=== PATIENT | female | born 1970 | race Caucasian/White ===

== ENCOUNTER 2024-03-01 18:20 | Outpatient (REF) | payer MEDICARE, SELFPAY ==
[2024-03-01 19:36] LABS: ALT 63 U/L (14-59); AST 32 U/L (15-37); Albumin 3.3 g/dL (3.4-5.0); Alkaline Phosphatase 119 U/L (46-116); Anion Gap 14.1 mmol/L (3-11); BUN 25 mg/dL (7-18); Bilirubin, Total 0.9 mg/dL (0.2-1.0); CO2 22.9 mmol/L (21.0-32.0); CREATININE 0.7 mg/dL (0.55-1.02); Chloride 104 mmol/L (98-107); Estimated GFR 101.44 (mL/min/1.73m2); Glucose 91 mg/dL (74-106); Potassium 4.3 mmol/L (3.5-5.1); Sodium 141 mmol/L (136-145); Total Protein 8.2 g/dL (6.4-8.2); Vitamin B12 882 pg/mL (193-986)
== END 2024-03-01 18:21 | disposition home or self-care (01) ==
LOC: LBN 18:20
PROVIDERS: Visit Provider Family Medicine
DX: R29.6 Repeated falls (principal); M62.81 Muscle weakness (generalized); I69.10 Unspecified sequelae of nontraumatic intracerebral hemorrhage
CPT/HCPCS: 80053; 82607

== ENCOUNTER 2024-03-06 18:54 | Outpatient (REF) | payer MEDICARE, SELFPAY ==
[2024-03-06 18:00] LABS: Abs Immature Grans 0.01 10^3/uL (0.0-0.06); Absolute Basophil Count 0.02 10^3/uL (0.0-0.2); Absolute Eosinophil Count 0.01 10^3/uL (0.0-0.7); Absolute Lymphocyte Count 2.01 10^3/uL (1.2-3.4); Absolute Monocyte Count 0.43 10^3/uL (0.1-0.8); Absolute Neutrophil Count 2.03 10^3/uL (1.2-6.7); Basophils % 0.4; Eosinophils % 0.2; HCT 37.8 % (36.0-46.0); HGB 12.3 g/dL (11.2-15.7); Immature Grans % 0.2; Lymphocytes % 44.6; MCH 31.9 pg (27.0-33.0); MCHC 32.5 % (32.0-36.0); MCV 98 fL (80-95); MPV 12.7 fL (8.0-11.0); Monocytes % 9.5; Neutrophils % 45.1; Platelet Count 265 10^3/uL (130-400); RBC 3.86 10^6/uL (3.93-5.22); RDW 14.2 % (11.7-14.6); RDW-SD 50.9 fL; WBC 4.51 10^3/uL (4.4-10.8)
[2024-03-06 18:09] LABS: ALT 52 U/L (14-59); AST 27 U/L (15-37); Albumin 3.2 g/dL (3.4-5.0); Alkaline Phosphatase 115 U/L (46-116); Anion Gap 9.6 mmol/L (3-11); BUN 17 mg/dL (7-18); Bilirubin, Total 0.8 mg/dL (0.2-1.0); CO2 24.4 mmol/L (21.0-32.0); CREATININE 0.9 mg/dL (0.55-1.02); Calcium 8.7 mg/dL (8.5-10.1); Chloride 104 mmol/L (98-107); Estimated GFR 75.03 (mL/min/1.73m2); Glucose 86 mg/dL (74-106); Potassium 4.2 mmol/L (3.5-5.1); Sodium 138 mmol/L (136-145); Total Protein 7.5 g/dL (6.4-8.2)
== END 2024-03-06 18:55 | disposition home or self-care (01) ==
LOC: LBN 18:54
PROVIDERS: Visit Provider Nurse Practitioner Family
DX: R68.89 Other general symptoms and signs (principal); M62.81 Muscle weakness (generalized)
CPT/HCPCS: 80053; 85025

== ENCOUNTER 2024-03-22 07:35 | Outpatient (REF) | payer MEDICARE, SELFPAY ==
[2024-03-22 09:35] LABS: Bilirubin Negative (Negative); Blood Large (Negative); Clarity Cloudy (Clear); Glucose Negative (Negative); Ketones Negative (Negative); Leukocyte Esterase Moderate (Negative); Nitrite Positive (Negative)
[2024-03-22 09:47] LABS: C & S Indicated? C&S Done As Ordered; WBC >50 HPF (0-5)
== END 2024-03-22 07:36 | disposition home or self-care (01) ==
LOC: LBN 07:35
PROVIDERS: Visit Provider Family Medicine
DX: N39.0 Urinary tract infection, site not specified (principal)
CPT/HCPCS: 87077; 81003; 81015; 87086; 87186

== ENCOUNTER 2024-05-06 18:08 | Outpatient (REF) | payer MEDICARE, SELFPAY ==
[2024-05-06 18:36] LABS: Abs Immature Grans 0.02 10^3/uL (0.0-0.06); Absolute Basophil Count 0.02 10^3/uL (0.0-0.2); Absolute Eosinophil Count 0.01 10^3/uL (0.0-0.7); Absolute Lymphocyte Count 1.87 10^3/uL (1.2-3.4); Absolute Monocyte Count 0.37 10^3/uL (0.1-0.8); Absolute Neutrophil Count 3.23 10^3/uL (1.2-6.7); Basophils % 0.4 %; Eosinophils % 0.2 %; HCT 38.5 % (36.0-46.0); Immature Grans % 0.4 %; Lymphocytes % 33.9 %; MCH 26.4 pg (27.0-33.0); MCHC 31.2 % (32.0-36.0); MCV 85 fL (80-95); MPV 12.5 fL (8.0-11.0); Monocytes % 6.7 %; Neutrophils % 58.4 %; Platelet Count 176 10^3/uL (130-400); RBC 4.55 10^6/uL (3.93-5.22); RDW 13.2 % (11.7-14.6); WBC 5.52 10^3/uL (4.4-10.8)
[2024-05-06 19:17] LABS: ALT 21 U/L (14-59); AST 12 U/L (15-37); Albumin 2.7 g/dL (3.4-5.0); Alkaline Phosphatase 114 U/L (46-116); Anion Gap 5.7 mmol/L (3-11); BUN 7 mg/dL (7-18); Bilirubin, Total 0.3 mg/dL (0.2-1.0); CO2 29.3 mmol/L (21.0-32.0); CREATININE 0.6 mg/dL (0.55-1.02); Calcium 8.8 mg/dL (8.5-10.1); Chloride 106 mmol/L (98-107); Estimated GFR 105.28 (mL/min/1.73m2); Folate 17.4 ng/mL (8.6-20.0); Glucose 96 mg/dL (74-106); Magnesium 1.6 mg/dL (1.8-2.4); Potassium 4.2 mmol/L (3.5-5.1); Sodium 141 mmol/L (136-145); Total Protein 5.8 g/dL (6.4-8.2); Vitamin B12 365 pg/mL (193-986)
== END 2024-05-06 18:09 | disposition home or self-care (01) ==
LOC: LBN 18:08
PROVIDERS: Visit Provider Nurse Practitioner Family
DX: R68.89 Other general symptoms and signs (principal)
CPT/HCPCS: 80053; 82607; 82746; 83735; 85025

== ENCOUNTER 2024-05-08 01:09 | Outpatient (REF) | payer MEDICARE, SELFPAY ==
[2024-05-08 01:35] LABS: Bilirubin Negative (Negative); Blood Negative (Negative); Clarity Sl Cloudy (Clear); Glucose Negative (Negative); Ketones Negative (Negative); Leukocyte Esterase Large (Negative); Nitrite Positive (Negative); Specific Gravity 1.015 (1.005-1.025); Urobilinogen 0.2 mg/dL (Up to 0.2); pH 6.5 (5-8)
[2024-05-08 01:39] LABS: RBC Negative HPF (0-2)
[2024-05-08 01:40] LABS: Bacteria Moderate HPF (Negative); C & S Indicated? Yes; Casts Negative LPF (Negative); Crystals Few Amorphous HPF (Negative); Epithelial Cells Few HPF (Negative); Mucus Negative (Negative)
== END 2024-05-08 01:10 | disposition home or self-care (01) ==
LOC: LBN 01:09
PROVIDERS: Visit Provider Nurse Practitioner Family
DX: N39.0 Urinary tract infection, site not specified (principal); B96.29 Other Escherichia coli [E. coli] as the cause of diseases classified elsewhere; R82.89 Other abnormal findings on cytological and histological examination of urine
CPT/HCPCS: 87077; 81003; 81015; 87086; 87186

== ENCOUNTER 2024-06-07 14:17 | Outpatient (REF) | payer MEDICARE, SELFPAY ==
[2024-06-07 15:12] LABS: Bilirubin Negative (Negative); Blood Moderate (Negative); Clarity Sl Cloudy (Clear); Glucose Negative (Negative); Ketones Negative (Negative); Leukocyte Esterase Trace (Negative); Nitrite Negative (Negative); Urobilinogen 0.2 mg/dL (Up to 0.2); pH 8.5 (5-8)
[2024-06-07 15:20] LABS: Bacteria Many HPF (Negative); C & S Indicated? C&S Done As Ordered; Casts Negative LPF (Negative); Crystals Negative HPF (Negative); Epithelial Cells Rare HPF (Negative); Mucus Negative (Negative)
== END 2024-06-07 14:18 | disposition home or self-care (01) ==
LOC: LBN 14:17
PROVIDERS: PCP Family Medicine; Visit Provider Family Medicine
DX: R82.998 Other abnormal findings in urine (principal)
CPT/HCPCS: 87077; 81003; 81015; 87086; 87186

== ENCOUNTER 2024-09-02 11:49 | Outpatient (REF) | payer MEDICARE, SELFPAY ==
[2024-09-02 11:13] LABS: Abs Immature Grans 0.01 10^3/uL (0.0-0.06); Absolute Basophil Count 0.03 10^3/uL (0.0-0.2); Absolute Lymphocyte Count 2.61 10^3/uL (1.2-3.4); Absolute Neutrophil Count 2.84 10^3/uL (1.2-6.7); Basophils % 0.5 %; Eosinophils % 1.7 %; HCT 41.3 % (36.0-46.0); HGB 13.3 g/dL (11.2-15.7); Immature Grans % 0.2 %; Lymphocytes % 44.3 %; MCH 27.7 pg (27.0-33.0); MCHC 32.2 % (32.0-36.0); MCV 86 fL (80-95); MPV 11.7 fL (8.0-11.0); Monocytes % 5.1 %; Neutrophils % 48.2 %; Platelet Count 183 10^3/uL (130-400); RBC 4.81 10^6/uL (3.93-5.22); RDW 14.1 % (11.7-14.6); RDW-SD 44.7 fL; WBC 5.89 10^3/uL (4.4-10.8)
[2024-09-02 11:52] LABS: Anion Gap 7.9 mmol/L (3-11); BUN 7 mg/dL (7-18); CO2 27.1 mmol/L (21.0-32.0); CREATININE 0.8 mg/dL (0.55-1.02); Calcium 9.6 mg/dL (8.5-10.1); Chloride 106 mmol/L (98-107); Estimated GFR 86.42 (mL/min/1.73m2); Ferritin 87 ng/mL (8-252); Glucose 138 mg/dL (74-106); Potassium 3.7 mmol/L (3.5-5.1); Sodium 141 mmol/L (136-145); Vitamin B12 543 pg/mL (193-986)
[2024-09-02 11:59] LABS: Folate > 20.0 ng/mL (8.6-20.0)
== END 2024-09-02 11:50 | disposition home or self-care (01) ==
LOC: LBN 11:49
PROVIDERS: PCP Family Medicine; Visit Provider Family Medicine
DX: M62.81 Muscle weakness (generalized) (principal)
CPT/HCPCS: 80048; 82607; 82728; 82746; 85025

== ENCOUNTER 2024-12-03 15:38 | Outpatient (REF) | payer MEDICARE, SELFPAY ==
--- OUTSIDE RECORDS SUMMARY | 2024-12-03 15:50 | XMS_ITS | Encounter Summary ---
Author Organization [facility] Address [address] [place] [address] Care Team Providers Care Counter Maker Name Role Phone Romario Hairston MD Primary Care Provider +1- [phone] Reason for Visit * Reason Onset Date Comments Other 04/30/2024 Encounter Details Date Type Department Care Team (Late st Contact Info) Description 04/30/2024 Telephone [facility] Neurology Clinic [address] [place] [address] Brayan Polk MD 130 [facility] [address] [place] [address] Other Social History Tobacco Use Types Packs/Day Years Used Date Smoking Tobacco: Every Day Cigarettes 0.3 15 Smokeless Tobacco: Never Alcohol Use Standard Drinks/Week Comments Yes 7 (1 standard drink = 0.6 oz pur e alcohol) PHQ-2 Answer Date Recorded PHQ-2 SUBTOTAL 0 07/16/2020 Interpersonal Safety Answer Date Record ed Physically Hurt Never 06/26/2020 Verbally Threaten Not on file 06/26/2020 Comments No Sex and Gender Information Value Date Recorded Sex Assigned at Not on file Legal Sex Female 17:42 EST Gender Identity Female 03/18/2020 17:54 EDT Sexual Orientation Not on file documented as of this encounter Functional Status * Are you deaf or do you have serious difficulty hearing? Answer Date of Assessment Author No 02/04/2024 17:13 EDT Sallie Sewell LPN * Are you blind or do you have serious difficulty seeing, even when wearing glasses? Answer Date of Assessment Author No 02/04/2024 17:13 EDT Sallie Sewell LPN * Do you have serious difficulty walking or climbing stairs? (5 years old or older) Answer Date of Assessment Author Yes 02/04/2024 17:13 EDT Sallie Sewell LPN * Do you have difficulty dressing or bathing? (5 years old or older) Answer Date of Assessment Author Yes 02/04/2024 17:13 EDT Sallie Sewell LPN * Because of a physical, mental, or emotional condition, do you have difficulty doing errands alone such as visiting a doctor's office or shopping? (15 years old or older) Answer Date of Assessment Author Yes 02/04/2024 17:13 EDT Sallie Sewell LPN documented as of this encounter Mental Status * Because of a physical, mental, or emotional condition, do you have serious difficulty concentrating, remembering, or making decisions? (5 years old or older) Answer Entry Date Author Yes 02/04/2024 17:13 EDT Sallie Sewell LPN documented in this encounter Miscellaneous Notes * Telephone Encounter - Brayan Polk MD - 05/01/2024 1038 EDT As long as she stays on b12 and keeps getting stronger, there's no need to recheck a b12 level any time soon. * Telephone Encounter - Vashti Grover RN - 05/01/2024 1022 EDT Lucille verbalized understanding of Dr. Polk's message. She was wondering when the next blood draw would be. And she pointed out that the next appointment is not until August. She is still concerned about Ynes's apartment. I told her that the residential can give her better advice on this because they work with her every day. She said that the PT says she is getting stronger every day and Lucille knows that she will just have to wait and see what happens right now. * Telephone Encounter - Vashti Grover RN - 05/01/2024 1007 EDT Left message for Lucille to return my call for Dr. Polk's message. Left call back information. * Telephone Encounter - Brayan Polk MD - 04/30/2024 1501 EDT I am not exactly sure what her specific question is, but continue taking B12 and seizure medicine, and if her leg symptoms are not worsening I would not be likely to retreat with IVIG since the B12 deficiency may be the cause of her symptoms. She has an appointment in a couple of weeks. * Telephone Encounter - Angie Haley - 04/30/2024 1106 EDT Lucille called to see what Dr Polk plan is for Ynes. documented in this encounter Plan of Treatment Upcoming Encounters Date Type Department Care Team (Late st Contact Info) Description 03/04/2025 14:00 EDT Telemedicine [facility] Neurology Clinic [address] [place] [id number] Brayan Polk MD [address] [place] [address] [place] [phone] 07/14/2025 14:30 EDT Office Visit [facility] Cancer [facility] Hematology & Oncology - [address] [address] Evin Maria MD [address] [place] [address], [address] [place] [address] documented as of this encounter Visit Diagnoses Not on filedocumented in this encounter Care Teams Counter Maker Relationship Specialty Start Date End Date Romario Hairston MD [facility] [place] [id number] PCP - General 07/06/20 documented as of this encounter
--- OUTSIDE RECORDS SUMMARY | 2024-12-03 15:50 | XMS_ITS | Encounter Summary ---
Author Organization [facility] Address [address] [place] [address] Care Team Providers Care Rental Boats Caretaker Name Role Phone Romario Hairston MD Primary Care Provider +1- [phone] Reason for Visit * Reason Onset Date Comments Medication Questions 10/15/2024 Encounter Details Date Type Department Care Team (Late st Contact Info) Description 10/15/[address] [facility] Neurology Clinic [address] [place] [address] Brayan Polk MD 130 [facility] [address] [place] [address] Medication Questions Social History Tobacco Use Types Packs/Day Years [...] encounter Miscellaneous Notes * Telephone Encounter - Vashti Grover RN - 10/15/2024 1342 EST Lucille verbalized understanding of the need to call Ynes's PCP or sleep doctor about the omeprazole as our docs do not manage this medication. * Telephone Encounter - Emma Renae - 10/15/2024 1203 EST Sister called to say that patient has trouble sleeping. She was wondering if the dose for Omeprazole can be increased. Please call her at [phone]. Thanks. documented in this encounter Plan of Treatment Upcoming Encounters Date Type Department Care Team (Late st Contact Info) Description 03/04/2025 14:[address] [facility] Neurology Clinic [address] [place] [id number] Brayan Polk MD [address] [place] [address] 07/14/2025 14:30 EDT Office Visit [facility] Cancer Center Hematology & Oncology - [address] [phone] Evin Maria MD 111 [facility], [facility], [address] [place] [address] documented as of this encounter Visit Diagnoses Not on filedocumented in this encounter Care Teams Rental Boats Caretaker Relationship Specialty Start Date End Date Romario Hairston MD [address], [address] [phone] PCP - General 07/06/20 documented as of this encounter
--- OUTSIDE RECORDS SUMMARY | 2024-12-03 15:50 | XMS_ITS | Encounter Summary ---
Author Organization [facility] Address [address] [place] [address] Care Team Providers Care Bushel Girl Name Role Phone Romario Hairston MD Primary Care Provider +1- [phone] Reason for Visit * Reason Onset Date Comments Other 03/05/2024 Encounter Details Date Type Department Care Team (Late st Contact Info) Description 03/05/2024 Telephone [facility] [address] [place] [address] Brayan Polk MD 130 [facility] [address] [place] [address] Other Social History Tobacco Use [...] encounter Miscellaneous Notes * Telephone Encounter - Angie Haley - 03/05/2024 0956 EDT Hola called ,she said she had some questions for you. Please call her back. [phone] documented in this encounter Plan of Treatment Upcoming Encounters Date Type Department Care Team (Late st Contact Info) Description 03/04/2025 14:00 EDT Telemedicine [facility] [address] [place], [place] [phone] Brayan Polk MD 130 [facility] [address] [place] [address] 07/14/2025 14:30 EDT Office Visit [facility] Cancer Center Hematology & Oncology - [address] [phone] Evin Maria MD [address] [place] [address] [address] [place] [phone] documented as of this encounter Visit Diagnoses Not on filedocumented in this encounter Care Teams Bushel Girl Relationship Specialty Start Date End Date Romario Hairston MD [address], [address] [id number] PCP - General 07/06/20 documented as of this encounter
--- OUTSIDE RECORDS SUMMARY | 2024-12-03 15:50 | XMS_ITS | Referral Summary ---
Author Organization [facility] Address [address] [place] [address] Care Team Providers Care Orthopaedic General Name Role Phone Romario Hairston MD Primary Care Provider +1- [phone] Encounters Date Type Department Care Team Description 10/15/2024 Telephone [facility] Neurology Clinic [address] [place], [place] [phone] Brayan Polk MD Medication Questions 09/18/2024 Telephone [facility] Neurology Clinic [address] [place] [address] Angi Robertson, color making supervisor Management 09/17/2024 13:30 EDT Telemedicine [facility] Neurology Clinic [address] [place] [address] Brayan Polk MD 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 0 Active omeprazole (PRILOSEC) 20 mg capsule TAKE 1 CAPSULE BY MOUTH EVERY DAY 30 MINUTES BEFORE BREAKFAST 1 Active metoclopramide HCl (REGLAN) 5 mg tablet Take 1 Tablet by mouth 3 times daily before meals. 90 Tablet 2 Active apixaban (ELIQUIS) 2.5 mg tablet Take 1 Tablet by mouth 2 times daily. 60 Tablet 6 3 Active pregabalin (LYRICA) 100 mg capsule Take 1 Capsule by mouth 2 times daily. Daily Max: 200 mg 180 Capsule 1 4 Active buPROPion (WELLBUTRIN SR) 100 mg SR tablet Take 1 Tablet by mouth 2 times daily. 4 Active melatonin 5 mg tablet Take 1 Tablet by mouth at bedtime. 4 Active acetaminophen (TYLENOL) 325 mg tablet Take 1 Tablet by mouth every 4 hours as needed for Pain. 4 Active xroocuhj-eaq-ei on fum-folic ac 7.5 mg iron-400 mcg tablet Take 1 Tablet by mouth daily. 4 Active cholecalciferol , Vitamin D3, 25 mcg (1,000 unit) tablet Take 1 Tablet by mouth daily. 4 Active polyethylene glycol 3350 (MIRALAX) 17 gram packet Take 17 g by mouth daily. 4 Active senna (SENOKOT) 8.6 mg tablet Take 1 Tablet by mouth at bedtime. 4 Active cyanocobalamin (VITAMIN B-12) 1,000 mcg tablet Take 1 Tablet by mouth daily. Active docusate sodium (COLACE) 100 mg capsule Take 1 Capsule by mouth daily. Active magnesium oxide (MAG-OX) 400 mg (241.3 mg magnesium) tablet Take 1 Tablet by mouth daily. Active rOPINIRole (REQUIP) 1 mg tablet Take 1 Tablet by mouth daily. At bedtime, ok to use 2 tablets of 0.5 mg Active tiZANidine (ZANAFLEX) 2 mg capsule Take 1 Capsule by mouth 3 times daily as needed for Other. For 14 days starting 09/04/24 Active pyridoxine, vitamin B6, (VITAMIN B6) 50 mg tablet Take 1 Tablet by mouth daily. Active Active Problems Patient Care Coordination No te Formatting of this note migh t be different from the original. PT caregiver/contact Ever called today stating that he'd received a call from a Pat. Benefit Advisor - reviewed upcoming appointments, no notes re: reason for call. Ever stated he may be reached via phone & ok to msg - pt non-verbal @ this time. Hope Crowe 08/02/2020 13:23 PT Has an ACO LALO Plan Trace number # [phone] Napoleon can now be reached by phoning her sister and guardian, Lucille Chapa at [phone]. 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 Right upper quadrant abdominal pain 02/08/2024 Hyponatremia 02/08/2024 Ileus ([facility]) 02/07/2024 Epigastric pain 02/07/2024 Hypomagnesemia 02/05/2024 Acute left ankle pain [M25.572] 02/04/2024 Closed avulsion fracture of medial malleolus of left tibia 02/04/2024 Weakness 02/04/2024 Sprain of left ankle, unspec ified ligament, initial encounter 02/04/2024 Failure to thrive in adult 02/04/2024 Closed avulsion fracture of medial malleolus of left tibia, initial encounter 02/04/2024 Neurogenic bladder as late e ffect of cerebrovascular accident (CVA) 06/11/2022 Severe protein-calorie malnutrition ([facility]) Insomnia due to other mental disorder (CODE) 10/2022 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 11/17/2019: Right greater saphenous thrombophlebitis (not treated) B. 02/14/2020: Left cerebral sinus thrombosis extending to IJ. Course complicated by ICH requiring craniotomy. I. 02/16/2020: Segmental PE and bilateral acute upper extremity DVTs and right lower extremity superficial thrombophlebitis. II. Treated when able with heparin -> enoxaparin -> apixaban for secondary prevention. Risk Factors A. Obesity (BMI ~30kg/m2) B. Protein C level low in acute setting, but normal on repeat testing. FVL normal. No evidence of PNH. C. No evidence of a lupus anticoagulant. D. CT Chest, Abdomen did not reveal any malignancy. CBC did not reveal any hematologic issue. Treatment and prevention A. On apixaban 2.5mg PO BID for secondary prevention. Left-sided nontraumatic intracerebral hemorrhage ([facility]) 03/02/2020 Overview (03/02/2020): Status post decompressive hemicraniectomy Encounter for insertion or r emoval of intrauterine contraceptive device 02/12/2020 Nicotine dependence, unspecified, uncomplicated 02/12/2020 Perimenopausal 02/12/2020 Tobacco abuse 12/02/2012 Chronic low back pain 10/13/2012 Back pain 09/25/2012 Resolved Problems Problem Noted Date Diagnosed Date Resolved Date UTI (urinary tract infection) 03/07/2022 03/28/2022 Altered mental status, unspe cified altered mental status type 03/07/2022 03/28/2022 Urinary tract infection asso ciated with indwelling urethral catheter, initial encounter ([facility]) 03/07/2022 03/28/2022 Seizure ([facility]) 07/16/2020 02/16/2022 History of cranial surgery 07/12/2020 0 02/16/2022 Cerebral venous sinus thrombosis 02/14/2020 02/16/2022 Immunizations Name Administration Dates Next Due Covid-19 mRNA, oliver Ready to Use Vaccine ([employer] READY TO USE COVID-19) PF 0.3 mL IM (12 yrs+) 03/09/2022 Influenza Vaccine Quad PF 0.5 ml IM (6 mos+) Social History Tobacco Use Types Packs/Day Years Used Date Smoking Tobacco: Every Day Cigarettes 0.3 15 Smokeless Tobacco: Never Tobacco Cessation:Ready to Q uit: Not Asked; Counseling Given: Not Answered Alcohol Use Standard Drinks/Week Comments Yes 7 [...] 17:54 EDT Sexual Orientation Not on file Last Filed Vital Signs Vital Sign Reading Time Taken Comments Blood Pressure 133/105 02/25/2024 0856 EDT Pulse 97 02/23/2024 0911 EDT Temperature 36.4 ??C (97.5 ??F) 02/25/2024 0856 EDT Respiratory Rate 17 02/25/2024 0856 EDT Oxygen Saturation 96% 02/25/2024 0856 EDT Inhaled Oxygen Concentration - - Weight 81 kg (178 lb 9.2 oz) 02/20/2024 0100 EDT Height 170.2 cm (5' 7.01) 02/20/2024 0100 EDT Body Mass Index 27.96 02/20/2024 0100 EDT Functional Status * Are you deaf or [...] Yes 02/04/2024 17:13 EDT Sallie Sewell LPN Mental Status * Because of a physical, mental, or emotional condition, do you have serious difficulty concentrating, remembering, or making decisions? (5 years old or older) Answer Entry Date Author Yes 02/04/2024 17:13 EDT Sallie Sewell LPN Plan of Treatment Upcoming Encounters Date Type Department Care Team (Late st Contact Info) Description 03/04/2025 14:00 EDT Telemedicine [facility] Neurology Clinic [address] [place] [phone] Brayan Polk MD 130 [facility] [address] [place] [phone] 07/14/2025 14:30 EDT Office Visit [facility] Cancer Center Hematology & Oncology - [address] [phone] Evin Maria MD [address] [place] [address], [facility] [address] [place] [address] Medical Devices Implanted Type Area Open Claims Representative Device Identifier Shelf Expiration Date Model / Serial / Lot [place] Drainage Evacuator Wound Suction Medium [id number] Reliavac [id number] - [id number] Implanted:Qty : 1 on 02/16/2020 by Claus Piña MD at [facility] Drain Left: Brain [employer] 08/24/2024 [id number] / / [id number] Drain Incision Walt Silcne 10fr 4 Channels Full Fluted Round Troc Hubless Radiopaque - [id number] Implanted:Qty : 1 on 02/16/2020 by Claus Piña MD at [facility] Drain Left: Brain [employer] 09/29/2024 [id number] / / [id number] Plate Bone Cmf Mdface Lp 2h 0.4x12mm [id number] - [id number] - [id number] Implanted:Qty : 1 on 07/12/2020 by Claus Piña MD at [facility] Plate Implant Left: Cranial [employer] 07/12/2020 [id number] / [id number] / Cover [place] Hole Cranial Low Profile W/Tab 0.4x14mm [place] Neuro [employer]ii [id number] - [id number] - [id number] Implanted:Qty : 3 on 07/12/2020 by Claus Piña MD at [facility] Plate Implant Left: Cranial [employer] 07/12/2020 [id number] / [id number] / Screw Bone Cmf [address] 1.5x4mm [place] [employer]ii [id number] - [id number] - [id number] Implanted:Qty : 11 on 07/12/2020 by Claus Piña MD at [facility] Screw Implant Left: Cranial [employer] LE[employer] 07/12/2020 [id number] / [id number] / Duragen 12.5 X 10cm [id number] - [id number] Implanted:Qty : 1 on 02/16/2020 by Claus Piña MD at [facility] Tissue Left: Brain [employer] 06/24/2022 [id number] / / [id number] Duragen 7.5 X 7.5cm [id number] - [id number] Implanted:Qty : 1 on 07/12/2020 by Claus Piña MD at [facility] Tissue Left: Cranial [employer] [id number] 01/22/2023 [id number] / / [id number] Procedures Procedure Name Priority Date/Time Associated Diagnosis Comments HEPATITIS C AB W REFLEX TO HCV RNA BY PCR Routine 02/18/2024 6:30 EDT COLONOSCOPY Routine 05/23/2023 8:00 EDT Screen for colon cancer from Last 3 Months or Most Recently Relevant to Health Maintenance Results * HEPATITIS C AB W REFLEX TO HCV RNA BY PCR (02/18/2024 6:30 EDT) Hep C Antibody Negative Negative 02/18/2024 17:50 EDT [facility] Blood VENOUS BLOOD / Unknown Venipuncture / Unknown 02/18/2024 6:30 EDT 02/18/2024 6:43 EDT Victorina Macedo PA-C CHEMISTRY & BLOOD GAS ORDERAB LES Final Result [facility] [address] [place] [address] * COLONOSCOPY (05/23/2023 8:00 EDT) Anatomical Region Laterality Modality Endoscopy Narrative 05/23/2023 8:00 EDT [facility] ?? [address] [address] ?? Patient Name ?NAPOLEON WHITE Date of ?1970 Record Number ?[id number] Date/Time of Procedure ?05/23/2023, 08:00:00 AM Endoscopist ?Duc Lockhart ?? Chief Client Officer ? Referring Physician(s) ?? ROMARIO HAIRSTON , Anesthesiologist ? Procedure Performed: COLONOSCOPY Indications for Exam: Screening Colonoscopy. Instruments: ? [id number] ([id number]) Medications: ?Fentanyl 50 mcg, Versed 3 mg I was in continuous face to face attendance during the administration of moderate sedation services that were monitored by an independent trained observer who had no other duties during the procedure. ? Visualization: ? Good ?Tolerance: Good ?Complications: None ? Extent of Exam: ?cecum ? Limitations: ?? Procedure Technique: A physical exam was performed. Informed consent was obtained from the patient after explaining all the risks (perforation, bleeding, infection and adverse effects to the medicine) , benefits and alternatives to the procedure which the patient appeared to understand and so stated. ??The patient was connected to the monitoring devices and placed in the left lateral position. Continuous oxygen was provided with a nasal cannula and IV medicine administered thru an indwelling cannula. After adequate conscious sedation was achieved, a digital exam was performed and the colonoscope introduced into the rectum and advanced under direct visualization to the cecum which was identified by visual landmarks. The scope was subsequently removed slowly while carefully examining the color, texture, anatomy, and integrity of the mucosa on the way out. In the rectum the scope was retroflexed to evaluate for internal hemorrhoids and anorectal pathology. The patient was subsequently transferred to the recovery area in satisfactory condition. The following findings were noted: Findings: 3 to 5 mm sessile polyp in the mid transverse colon. Polypectomy performed with cold snare. Polyp retrieved. Histology pending. Endoscopic Diagnosis: Colon polyp Recommendations: Await pathology;The office will contact you by phone or mail as indicated. Please call the office if you do not hear from us. [employer]te for next colonoscopy Sedation Start: 08:20:33 AM ?? Sedation End: 08:43:10 AM Signature: Duc Lockhart M.D. This note was electronically signed on 05/23/2023 08:46:37 AM By Duc Lockhart M.D. Romario Hairston MD GI PROCEDURE ORDERABLES Fi nal Result from Last 3 Months or Most Recently Relevant to Health [place] [address] [place] [address] [place] [address] [place] [address] [place] [address] [place] [address] [place] [address] [place] [address] Advance Directives For more information, please contact: [phone] Documents on File Type Date Recorded Patient Electrophysiology Tech Expl anation Advance Directive 02/24/2024 8:47 8 [employer]M 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 Default/Not Discussed * Full Code Date Activated Date Inactivated Comments 02/04/2024 14:23 02/20/2024 0:25 Question Answer Comments When the patient has NO PULSE: Full Code / CPR Who Made the Decision? Default/Not Discussed * Full Code Date Activated Date Inactivated Comments 03/07/2022 12:40 03/28/2022 16:22 Question Answer Comments When the patient has NO PULSE: Full Code / CPR Who Made the Decision? Default/Not Discussed * Full Code Date Activated Date Inactivated Comments 07/16/2020 18:10 07/18/2020 13:25 Question Answer Comments Reason for decision includes: Full code consistent with overall plan of care Who participated in the discussion? Not Discusse d * Full Code Date Activated Date Inactivated Comments 07/12/2020 11:26 07/14/2020 13:46 Question Answer Comments Reason for decision includes: Full code consistent with overall plan of care Who participated in the discussion? Not Discusse d Care Teams Orthopaedic General Relationship Specialty Start Date End Date Romario Hairston MD [address] [place] [address] PCP - General 07/06/20
--- OUTSIDE RECORDS SUMMARY | 2024-12-03 15:50 | XMS_ITS | Encounter Summary ---
Author Organization [facility] Address [address] [place] [address] Care Team Providers Care Jockey Agent Name Role Phone Romario Hairston MD Primary Care Provider +1- [phone] Reason for Visit * Reason Onset Date Comments Medication Management 09/18/2024 Encounter Details Date Type Department Care Team (Late st Contact Info) Description 09/18/2024 Telephone [facility] Neurology Clinic [address] [id number] Angi Robertson RN Medication Management Social History Tobacco Use Types Packs/Day Years [...] of Assessment Author Yes 02/04/2024 17:13 EDT SewellSallie wong LPN * Do you have difficulty dressing or bathing? (5 years old or older) Answer Date of Assessment Author Yes 02/04/2024 17:13 EDT SewellSallie reed LPN * Because of a physical, mental, or emotional condition, do you have difficulty doing errands alone such as visiting a doctor's office or shopping? (15 years old or older) Answer Date of Assessment Author Yes 02/04/2024 17:13 EDT SewellSallie wong LPN documented as of this encounter Mental Status * Because of a physical, mental, or emotional condition, do you have serious difficulty concentrating, remembering, or making decisions? (5 years old or older) Answer Entry Date Author Yes 02/04/2024 17:13 EDT Sallie Sewell LPN documented in this encounter Miscellaneous Notes * Addendum Note - Brayan Taylor MD - 09/18/2024 0858 EDTAddended by: BRAYAN TAYLOR on: 09/18/2024 08:58 Modules accepted: Orders * Telephone Encounter - Angi Robertson RN - 09/18/2024 0845 EDT Done. I marked prior meds not on the [facility] list as not taking. ----- Message from Brayan Taylor MD sent at 09/18/2024 7:56 EDT ----- Would you please rectify this list with Ynes's current med list? Thanks. ----- Message ----- From: Angie Haley Sent: 09/17/2024 16:01 EDT To: Brayan Taylor MD documented in this encounter Plan of Treatment Upcoming Encounters Date Type Department Care Team (Late st Contact Info) Description 03/04/2025 14:00 EDT Telemedicine [facility] Neurology Clinic [address] [place], [place] [address] Brayan Taylor MD 130 [facility] [address] [place] [phone] 07/14/2025 14:30 EDT Office Visit [facility] Cancer Center Hematology & Oncology - [facility] [address] [place] [address] Evin Maria MD 111 [facility], [address] [place] [address] documented as of this encounter Visit Diagnoses Not on filedocumented in this encounter Discontinued Medications Medication Sig Discontinue Reason Start Date End Da te bisacodyL (DULCOLAX) [address] 1 Suppository rectally daily as needed for Constipation. Therapy completed 02/25/2024 09/18/2024 bisacodyL (DULCOLAX) 5 mg EC tablet Take 2 Tablets by mouth daily. Therapy completed 09/18/2024 cyanocobalamin (VITAMIN B12) 1,000 mcg/mL injection Inject 1 mL into the muscle daily. Therapy completed 02/25/2024 09/18/2024 folic acid (FOLVITE) 1 mg tablet Take 1 Tablet by mouth daily. Therapy completed 02/25/2024 09/18/2024 ibuprofen (MOTRIN) 200 mg tablet Take 2 Tablets by mouth 3 times daily as needed for Pain. Therapy completed 09/18/2024 methocarbamoL (ROBAXIN) 500 mg tablet Take 1 Tablet by mouth 2 times daily as needed for Pain or Muscle Spasms. Therapy completed 02/25/2024 09/18/2024 OLANZapine (ZYPREXA) 20 mg tablet Take 1 Tablet by mouth at bedtime. Therapy completed 12/05/2022 09/18/2024 propRANolol (INDERAL) 10 mg tablet TAKE 1 TABLET BY MOUTH EVERY MORNING, 1 TABLET EVERY AFTERNOON AND 2 TABLETS EVERY NIGHT AT BEDTIME NEEDED FOR ANXIETY. Therapy completed 01/08/2024 09/18/2024 documented as of this encounter Care Teams Jockey Agent Relationship Specialty Start Date End Date Romario Hairston MD [address] [place] [address] PCP - General 07/06/20 documented as of this encounter
--- OUTSIDE RECORDS SUMMARY | 2024-12-03 15:50 | XMS_ITS | Encounter Summary ---
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 HISTORY Ynes White is a 54 y.o. female who returns in follow-up. She's having improvement in hand function especially in terms of eating and writing. Her legs are getting worked on with PT also. There's pain in her legs without any cause identified. It's worse at night. She's not walking but she can use her legs more than before. There's persistent numbness in the arms and legs. No seizures recently. Her sister did verify that she still receiving B12 at her care facility. She regularly works on moving and strengthening her arms and legs even when the therapist is not there. Right now she only has scheduled physical therapy about once a week. She is having pain in her feet especially at night, but not so bad in the daytime. Summary: ICH related to cerebral venous thrombosis in January 2020, treated with surgical evacuation by Dr Piña, and subsequent cranioplasty, as well as likely symptomatic seizure in June for which she was briefly admitted to [facility], and placed on levetiracetam 1000mg BID which gave her worsening of anxiety causing several ED visits. Was then switched to zonisamide, which at 200mg/d was not effective enough for seizure control but at 300mg/d caused anorexia and weight loss. Brivaracetam caused tremulousness. Unsure whether lacosamide caused ataxia. There have been episodes convincing for focal and generalized seizures as well as others various types of events possibly representing non-epileptic events. Finally got seizure and symptomatic stability on pregabalin. Subsequently developed subacute gait dysfunction over several weeks and was hospitalized. Due to the rapidity of the onset lumbar puncture was obtained and had protein over 200 with normal cell count. 1 course of IVIG was given. She was also found to have B12 deficiency and was started on supplementation. ALLERGIES Allergies Allergen Reactions Citalopram Other reaction(s): increased anxiety Duloxetine Other reaction(s): increased anxiety Gabapentin Levetiracetam Anxiety Trazodone Zolpidem Other reaction(s): sleep walking with over 5 mg CURRENT MEDICATIONS Her sister will fax us a copy from the facility NEUROLOGIC EXAM Alert, speech much improved, baseline dysarthria due to missing upper teeth, more animated than in previous visits. Some hand atrophy noted. NEUROIMAGING STUDIES: Personally reviewed Noncontrast head CT 02/12/2020: Normal parenchyma, hyperdensity noted in the transverse sinus especially on the left. Noncontrast head CT 08/02/2020: Postsurgical changes on the left side as well as atrophy of the left temporoparietal region, and a small amount of subdural fluid collection with slight hyperdensity suggesting it may be aging blood. Noncontrast head CT 09/18/21 unchanged. ASSESSMENT: Ynes White is a 54 y.o. female who returns in follow-up for intracerebral hemorrhage secondary to cerebral venous thrombus in January 2020 treated with evacuation and cranioplasty, and subsequentleft hemispheric focal onset epilepsy. After multiple medication trials and failures, she achieved seizure- free status without side effects on pregabalin. Also suffered a relatively acute onset neuropathy initially with concern for AIDP and was treated with 1 course of IVIG, but also had severe [id number] which has been getting supplemented since then. 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 -Continue pregabalin 100 mg twice daily for seizure prophylaxis Rapid onset peripheral neuropathy, initially sensory but developed motor component, suspect B12 deficiency, also with neuropathic pain -Continue vitamin B12 supplementation indefinitely -Try topical 4% lidocaine cream at night or up to 3 times daily for what sounds like neuropathic pain in the feet -Contingency would be to increase nighttime pregabalin dose potentially for dual therapy neuropathic pain and seizure prophylaxis. Follow-up 6 months, video okay. Brayan Polk MD [facility] Video Visit Today's visit was provided through telemedicine video conferencing: The location of the patient: Not at home (another medical/non-medical, personal spaces outside the home) The location of the provider: Rehab facility Verbal consent: The concept of ???Telemedicine?? has been described to the patient.Patient has been informed of the anticipated benefits and possible risks. Patient understands the information provided regarding telemedicine, has had the opportunity to ask questions about this information, and all questions have been answered to patient???s satisfaction. Patient consents for the use of telemedicine in his/her medical care and authorizes the transmission of any relevant medical information to providers and their staff involved in patient???s medical or mental health care. Verbal consent obtained by myself or auxiliary staff: yes. MDM level moderate The following individuals and their role did participate in today's encounter visit: Provider: Brayan Polk MD Patient Family member documented in this encounter Plan of Treatment Upcoming Encounters Date Type Department Care Team (Late st Contact Info) Description 03/04/2025 14:00 EDT Telemedicine [facility] - [facility] Neurology Clinic [address] [place] [address] Brayan Polk MD 130 [facility] [address] [address] [place] [address] 07/14/2025 14:30 EDT Office Visit [facility] Cancer Center Hematology & Oncology - [facility] [address] [place] [address] Evin Maria MD 111 [facility], [address] [place] [phone] documented as of this encounter Visit Diagnoses Diagnosis Focal epilepsy (HCC-CMS)- Primary Localization-related (focal) (partial) epilepsy and epileptic syndromes with simple partial seizures, without mention of intractable epilepsy Vitamin B12 deficiency neuropathy ([facility]) Other B-complex deficiencies documented in this encounter Historical Medications * This list may reflect changes made after this encounter. pyridoxine, vitamin B6, (VITAMIN B6) 50 mg tablet Take 1 Tablet by mouth daily. tiZANidine (ZANAFLEX) 2 mg capsule Take 1 Capsule by mouth 3 times daily as needed for Other. For 14 days starting 09/04/24 rOPINIRole (REQUIP) 1 mg tablet Take 1 Tablet by mouth daily. At bedtime, ok to use 2 tablets of 0.5 mg magnesium oxide (MAG-OX) 400 mg (241.3 mg magnesium) tablet Take 1 Tablet by mouth daily. docusate sodium (COLACE) 100 mg capsule Take 1 Capsule by mouth daily. cyanocobalamin (VITAMIN B-12) 1,000 mcg tablet Take 1 Tablet by mouth daily. added in this encounter Care Teams Bus Driver Relationship Specialty Start Date End Date Romario Hairston MD [address], [address] [address] PCP - General 07/06/20 documented as of this encounter
--- OUTSIDE RECORDS SUMMARY | 2024-12-03 15:50 | XMS_ITS | Clinical Summary ---
Author Organization [facility] Address [address] [place] [address] Care Team Providers Care Support Manager Name Role Phone Romario Hairston MD Primary Care Provider +1- [phone] Allergies Active Allergy Reactions Criticality Noted Date [...] hours as needed for Pain. 4 Active tcyztsko-csn-ke on fum-folic ac 7.5 mg iron-400 mcg [...] be reached via phone & [facility] non-verbal @ this time. Hope Crowe 08/02/2020 13:23 PT Has an ACO LALO Plan Trace number # [phone] Napoleon can now be reached by phoning her sister and guardian, Lucille Chapa at [phone]. 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 Right upper quadrant abdominal pain 02/08/2024 Hyponatremia 02/08/2024 Ileus (HCC-CMS) 02/07/2024 Epigastric pain 02/07/2024 Hypomagnesemia 02/05/2024 Acute [...] cerebrovascular accident (CVA) 06/11/2022 Severe protein-calorie malnutrition ([facility]) Insomnia due to other mental disorder (CODE) 10/2022 Focal epilepsy ([facility]) 02/16/2022 Procedure and treatment not carried out for othe r reasons 08/30/2021 Solitary pulmonary nodule 08/11/2021 Tremor, unspecified 12/07/2020 Other specified postprocedural states 10/27/2020 Solitary cyst of right breast 10/27/2020 Primary hypercoagulable state ([facility]) 03/23/20 20 Overview (07/12/2021): Thrombosis Events A. [...] for secondary prevention. Left-sided nontraumatic intracerebral hemorrhage ([facility]) 03/02/2020 Overview (03/02/2020): Status post decompressive [...] ciated with indwelling urethral catheter, initial encounter ([facility]) 03/07/2022 03/28/2022 Seizure ([facility]) 07/16/2020 02/16/2022 History of cranial surgery 07/12/2020 0 02/16/2022 Cerebral venous sinus thrombosis 02/14/2020 02/16/2022 Encounters Date Type Department Care Team Description 10/15/2024 Telephone [facility] Neurology Clinic [address] [place], [place] [id number] Brayan Polk MD Medication Questions 09/18/2024 Telephone [facility] Neurology Clinic [address] [place] [address] Angi Robertson RN Medication Management 09/17/2024 13:30 EDT Telemedicine [facility] Neurology Clinic [address] [place] [address] Brayan Polk MD 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); Vitamin B12 deficiency neuropathy ([facility]) from Last 3 Months Immunizations Name Administration Dates Next Due Covid-19 mRNA, oliver Ready to Use Vaccine (LookMedBook READY TO USE COVID-19) PF 0.3 mL IM (12 yrs+) 03/09/2022 Influenza Vaccine Quad PF 0.5 ml IM (6 mos+) Medical History Medical History Date Comments Left-sided nontraumatic intracerebral hemorrhage (HCC-CMS) 03/02/2020 Status post decompr essive hemicraniectomy History of general anesthesia Exercise involving walking flat surfaces Shoulder joint pain right Memory disorder Cerebral venous sinus thrombosis 02/14/2020 History of cranial surgery 07/12/2020 UTI (urinary tract infection) Family History Medical History Relation Comments Cancer Father mesothelioma Cancer Maternal Grandmother Cancer Mother Liver Relation Status Comments Father Maternal Grandmother Mother Social History Tobacco Use Types Packs/Day Years [...] 17:54 EDT Sexual Orientation Not on file Obstetrics History Last Filed Vital Signs Vital Sign Reading [...] Body Mass Index 27.96 02/20/2024 0100 EDT Plan of Treatment Upcoming Encounters Date Type Department Care Team (Late st Contact Info) Description 03/04/2025 14:00 EDT Telemedicine [facility] Neurology Clinic [address] [place] [address] Brayan Polk MD 130 [facility] [address] [place] [address] 07/14/2025 14:30 EDT Office Visit [facility] Cancer Center Hematology & Oncology - [address] [address] Evin Maria MD 111 [facility], [address] [place] [address] Health Maintenance Due Date Last Done Comments Pneumococcal Immunization (1 of 2 - PCV) 1974 Hepatitis B Vaccine (1 of 3 - 19+ 3-dose series) 1987 COVID-19 Vaccine ( season) 2024 Colonoscopy (Colon Cancer Screening) Discontinued 04/26 Colorectal Cancer Screening Discontinued Hepatitis C Screen Completed 02/18/2024, 03/08/2022 Cologuard (Colon Cancer Screening) Discontinued FIT Test (Colon Cancer Screening) Discontinued Sigmoidoscopy (Colon Cancer Screening) Discontinued Medical Devices Implanted Type Area Chief Engineer Production Device Identifier Shelf Expiration Date Model / Serial / Lot [place] Drainage Evacuator Wound Suction Medium [id number] Reliavac [id number] - [id number] Implanted:Qty : 1 on 02/16/2020 by Claus Piña MD at [facility] Drain Left: Brain [employer] 08/24/2024 [id number] / / [id number] Drain Incision Walt Silcne 10fr 4 Channels Full Fluted Round Troc Hubless Radiopaque - [id number] Implanted:Qty : 1 on 02/16/2020 by Claus Piña MD at [facility] Drain Left: Brain [employer] 09/29/2024 [id number] / / [id number] Plate Bone Cmf Mdface Lp 2h 0.4x12mm [id number] - [id number] - [id number] Implanted:Qty : 1 on 07/12/2020 by Claus Piña MD at [facility] Plate Implant Left: Cranial GEMA LEIBINGER 07/12/2020 [id number] / [id number] / Cover [place] Hole Cranial Low Profile W/Tab 0.4x14mm Sealy Neuro Iii [id number] - [id number] - [id number] Implanted:Qty : 3 on 07/12/2020 by Claus Piña MD at [facility] Plate Implant Left: Cranial GEMA RUBINBINGER 07/12/2020 [id number] / [id number] / Screw Bone Cmf [address] 1.5x4mm Sealy Neuro Iii [id number] - [id number] - [id number] Implanted:Qty : 11 on 07/12/2020 by Claus Piña MD at [facility] Screw Implant Left: Cranial [employer] LEIBINGER 07/12/2020 [id number] / [id number] / Duragen 12.5 X 10cm [id number] - [id number] Implanted:Qty : 1 on 02/16/2020 by Claus Piña MD at [facility] Tissue Left: Brain [employer] 06/24/2022 [id number] / / [id number] Duragen 7.5 X 7.5cm [id number] - [id number] Implanted:Qty : 1 on 07/12/2020 by Claus Piña MD at [facility] Tissue Left: Cranial [employer] [id number] 01/22/2023 [id number] / / [id number] Procedures Procedure Name Priority Date/Time Associated Diagnosis [...] C Antibody Negative Negative 02/18/2024 17:50 EDT [facility] Blood VENOUS BLOOD / Unknown Venipuncture / Unknown 02/18/2024 6:30 EDT 02/18/2024 6:43 EDT us Victorina Macedo PA-C CHEMISTRY & BLOOD GAS ORDERAB LES Final Result [facility] [address] [place] [address] * COLONOSCOPY (05/23/2023 8:00 EDT) Anatomical Region Laterality Modality Endoscopy Narrative 05/23/2023 8:[address] [facility] ?? [address] [place] [address] ?? Patient Name ?NAPOLEON WHITE Date of ?1970 Record Number ?[id number] Date/Time of Procedure ?05/23/2023, 08:00:00 AM Endoscopist ?Duc Lockhart ?? Director Microbiology ? Referring Physician(s) ?? ROMARIO HAIRSTON , Anesthesiologist ? Procedure Performed: COLONOSCOPY Indications for Exam: Screening Colonoscopy. Instruments: ? [id number] ([id number]) Medications: ?Fentanyl 50 mcg, Versed 3 mg [...] Relevant to Health Maintenance [place] [address] [place] [address] [place] [address] [place] [address] [place] [address] [place] [address] [place] [address] [place] [address] Advance Directives For more information, please contact: [phone] Documents on File Type Date Recorded Patient Scada Engineer Expl anation Advance Directive 02/24/2024 8:47 8 [place] STAT[employer]ORY FORM POWER OF [employer] PLANT WORKER IMPORTANT INFORMATION Advance Directive 06/01/2022 16:16 2021 07/ 08 DNR/COLST Guardianship 03/30/2022 04-14-20 Edward nship [...] the discussion? Not Discusse d Care Teams Support Manager Relationship Specialty Start Date End Date Romario Hairston MD [address] [place], [place] [address] PCP - General 07/06/20
--- OUTSIDE RECORDS SUMMARY | 2024-12-03 15:50 | XMS_ITS | Encounter Summary ---
Author Organization [facility] Address [address] [place] [address] Care Team Providers Care Waste Transportation Technician Name Role Phone Romario Hairston MD Primary Care Provider +1- [phone] Reason for Visit * Reason Onset Date Comments Appointment Related 07/07/2024 Encounter Details Date Type Department Care Team (Late st Contact Info) Description 07/07/2024 Telephone [facility] Cancer Center Hematology & Oncology - [address] [address] Anum Hall PA-C [address] [place] [address], [address] [place] [address] Appointment Related Social History Tobacco Use Types Packs/Day Years [...] encounter Miscellaneous Notes * Telephone Encounter - Sudha Lagos - 07/07/2024 1610 EDT HemOnc Incoming Call Appointment Related Which type of appointment is this for? Provider Visit Is this a return call from a ems coordinator?No Cancel Appointment Appointment Date 07/14/24 Patient is currently in [facility] in [facility] and not sure now long she will be there (if within 1 week, [employer] Sample [employer]er. If no answer, put high priority call encounter and route to hem/onc scheduling pool) Sudha Lagos 07/07/2024 16:10 documented in this encounter Plan of Treatment Upcoming Encounters Date Type Department Care Team (Late st Contact Info) Description 03/04/2025 14:[address] [facility] Neurology Clinic [address] [place] [address] Brayan Polk MD 130 [facility] [address] [place] [phone] 07/14/2025 14:30 EDT Office Visit [facility] Cancer Center Hematology & Oncology - [address] [phone] Evin Maria MD 111 [facility], [address] [place] [address] documented as of this encounter Visit Diagnoses Not on filedocumented in this encounter Care Teams Waste Transportation Technician Relationship Specialty Start Date End Date Romario Hairston MD [address], [address] [address] PCP - General 07/06/20 documented as of this encounter
--- OUTSIDE RECORDS SUMMARY | 2024-12-03 15:50 | XMS_ITS | Encounter Summary ---
Author Organization [facility] Address [address] [place] [address] Care Team Providers Care Handy Worker Name Role Phone Romario Hairston MD Primary Care Provider +1- [phone] Reason for Visit * Reason Onset Date Comments Medical Records 07/16/2024 Encounter Details Date Type Department Care Team (Late st Contact Info) Description 07/16/2024 Telephone [facility] Urology Clinic [address] [place] [address] Eneida Drew RN Medical Records Social History Tobacco Use Types Packs/Day Years [...] encounter Miscellaneous Notes * Telephone Encounter - Kassandra Rawls - 07/17/2024 1021 EDT Left message for Adali to let her know that patient hasn't been seen here since 2021 and gave her the medical records phone number. It looks like her PCP is in [place], so I'm wondering if that is where the referral came from. * Telephone Encounter - Eneida Drew RN - 07/16/2024 5010 EDT Adali Olmos called and is requesting urology notes for this patient. States they have received a referral for her to be seen at [facility] urology. Left her phone number [phone]. documented in this encounter Plan of Treatment Upcoming Encounters Date Type Department Care Team (Late st Contact Info) Description 03/04/2025 14:00 EDT Telemedicine [facility] [address] [place] [address] Brayan Polk MD 130 [facility] [address] [place] [phone] 07/14/2025 14:30 EDT Office Visit [facility] Hematology & Oncology - [address] [address] Evin Maria MD 111 [facility], [address] [place] [address] documented as of this encounter Visit Diagnoses Not on filedocumented in this encounter Care Teams Handy Worker Relationship Specialty Start Date End Date Romario Hairston MD [address], [address] [id number] PCP - General 07/06/20 documented as of this encounter
--- OUTSIDE RECORDS SUMMARY | 2024-12-03 15:50 | XMS_ITS | Encounter Summary ---
Author Organization [facility] Address [address] [place] [address] Care Team Providers Care Professor Of Engineering Name Role Phone Romario Hairston MD Primary Care Provider +1- [phone] Reason for Visit * Reason Onset Date Comments Appointment Related 07/08/2024 Encounter Details Date Type Department Care Team (Late st Contact Info) Description 07/08/2024 Telephone [facility] Hematology & Oncology - [address] [address] Anum Hall PA-C [address] [place] [address], [address] [place] [address] Appointment Related Social History Tobacco [...] encounter Miscellaneous Notes * Telephone Encounter - Trish Vazquez - 07/08/2024 0917 EDT Lmom that I have cx pt 8.20 w/ RS-plz rmc if you'd ;carolee to R/S for a video appt. Left PAC# documented in this encounter Plan of Treatment Upcoming Encounters Date Type Department Care Team (Late st Contact Info) Description 03/04/2025 14:00 EDT Telemedicine [facility] Neurology Clinic [address] [place] [address] Brayan Polk MD 130 [facility] [address] [place] [address] 07/14/2025 14:30 EDT Office Visit [facility] Cancer Center Hematology & Oncology - [address] [address] Evin Maria MD 111 [facility], [facility], [address] [place] [phone] documented as of this encounter Visit Diagnoses Not on filedocumented in this encounter Care Teams Professor Of Engineering Relationship Specialty Start Date End Date Romario Hairston MD [facility] [place] [address] PCP - General 07/06/20 documented as of this encounter
--- OUTSIDE RECORDS SUMMARY | 2024-12-03 15:50 | XMS_ITS | Encounter Summary ---
Author Organization [facility] Address [address] [place] [address] Care Team Providers Care Director [employer] Name Role Phone Romario Hairston MD Primary Care Provider +1- [phone] Reason for Visit * Reason Onset Date Comments Appointment Related 03/05/2024 Encounter Details Date Type Department Care Team (Late st Contact Info) Description 03/05/2024 Telephone [facility] [address] [place] [address] Brayan Polk MD 130 [facility] [address] [place] [address] Appointment Related Social History Tobacco Use Types [...] Telephone Encounter - Angie Haley - 03/05/2024 2725 EDT [facility] for appointment on 03/20/2024 @ 11:30 documented in this encounter Plan of Treatment Upcoming Encounters Date Type Department Care Team (Late st Contact Info) Description 03/04/2025 14:00 EDT Telemedicine [facility] Neurology Clinic [address] [place], [place] [phone] Brayan Polk MD 130 [facility] [address] [place] [address] 07/14/2025 14:30 EDT Office Visit [facility] Center Hematology & Oncology - [address] [phone] Evin Maria MD 111 [facility], [address] [place] [phone] documented as of this encounter Visit Diagnoses Not on filedocumented in this encounter Care Teams Director [employer] Relationship Specialty Start Date End Date Romario Hairston MD [address] [place], [place] [address] PCP - General 07/06/20 documented as of this encounter
--- OUTSIDE RECORDS SUMMARY | 2024-12-03 15:50 | XMS_ITS | Encounter Summary ---
Author Organization [facility] Address [address] [place] [address] Care Team Providers Care Program Trainer Name Role Phone Romario Hairston MD Primary Care Provider +1- [phone] Reason for Visit * Reason Onset Date Comments Other 04/08/2024 Discharge Planni akanksha. Encounter Details Date Type Department Care Team (Late st Contact Info) Description 04/08/2024 Telephone [facility] Neurology Clinic [address] [place] [address] Vashti Grover RN Other (Discharge Planning.) Social History Tobacco Use Types Packs/Day Years [...] Telephone Encounter - Vashti Grover RN - 04/08/2024 0958 EDT I received a call from Beverly, patient's sister. She wanted to speak with Dr. Polk. After somecoaxing she asked if the doctor feels that Ynes cannot come home like the SNF or if he thinks she can come home. I explained to Lucille that the patient's care is totally in the hands of the SNF providers and theyare in the best decision to make that call. She grudgingly accepted this answer. She needs to know soon because she needs to get rid of her apartment if she is not coming home. I told her that she needs to work with the group home for discharge planning. documented in this encounter Plan of Treatment Upcoming Encounters Date Type Department Care Team (Late st Contact Info) Description 03/04/2025 14:00 EDT Telemedicine [facility] Neurology Clinic [address] [place] [address] Brayan Polk MD 130 [facility] [address] [place] [address] 07/14/2025 14:30 EDT Office Visit [facility] Hematology & Oncology - [address] [phone] Evin Maria MD 111 [facility], [address] [place] [phone] documented as of this encounter Visit Diagnoses Not on filedocumented in this encounter Care Teams Program Trainer Relationship Specialty Start Date End Date Romario Hairston MD [address], [address] [id number] PCP - General 07/06/20 documented as of this encounter
--- OUTSIDE RECORDS SUMMARY | 2024-12-03 15:50 | XMS_ITS | Encounter Summary ---
Author Organization [facility] Address [address] [place] [address] Care Team Providers Care Crib Pad Maker Name Role Phone Romario Hairston MD Primary Care Provider +1- [phone] Reason for Visit * Reason Comments Other * Auth/Cert (Routine) Specialty Diagnoses / Procedures 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 female who returns in follow-up. She was recently admitted to [facility] for subacute onset of weakness and gait dysfunction. 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 Because of the rapidity of onset lumbar puncture was obtained and had protein over 200 and normal cell counts so 1 course of IVIG was given. She was also transferred to [facility] for further evaluation given sensory only findings on EMG/nerve conduction testing. She also was discovered to have B12 deficiency and was started on supplementation. She now is at subacute rehab and joins by video for follow-up appointment. She's at [facility] in [facility]. She and her sister do not know if she is receiving B12 supplementation right now. She has been scheduled for physical therapy 5 days a week. She is not back to walking yet. Her arms are also feeling weak. She does not feel like her strength is worsening currently. No other new complaints. No seizures recently. 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 NEUROIMAGING STUDIES: Personally reviewed Noncontrast head CT [...] cranioplasty, and subsequentleft hemispheric focal onset epilepsy. Stable after multiple medication failures on pregabalin despite weight gain. In addition she recently developed a subacute sensory neuropathy, with lumbar puncture showing albumin no cytologic dissociation and convincingly elevated protein, though also found to have B12 deficiency which is perhaps a more likely etiology of her subacute weakness and balance dysfunction. She is at a rehab facility can see Svetlana and I will need to obtain current medication s to make sure she is getting her pregabalin and also still getting B12 supplementation. With B12 deficiency perhaps being more likely etiology we will monitor her for now off IVIG and on B12 supplementation. 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 -Status post 1 course of IVIG just about a month ago, and was receiving B12 supplementation while admitted, but need to verify she still receiving it. If she does not show worsening in the next monthor 2, might be more likely that B12 deficiency is the source rather than autoimmune ganglionopathy. Follow-up late April, video okay. Brayan Taylor MD [facility] Video Visit Today's visit was provided through [...] obtained by myself or auxiliary staff: yes. I spent a total of 40 minutes on the date of this encounter meeting with the patient and reviewing documentation/coordinating care as described in the above note. The following individuals and their role did participate in today's encounter visit: Provider: Brayan Taylor MD Patient Family member ADDENDUM: Received records from her rehab facility. She is receiving pregabalin 100 mg twice daily. She is receiving B12 supplementation. In addition reviewing the rest of results from her [facility] hospitalization, B2, B6, and selenium are also low but she is taking a multivitamin and selenium should get replenished from a regular diet at the facility. For some reason she is also being given aspirin, and there is no indication for her secondary stroke prevention to be taking aspirin. I do not see any cardiology notes that indicate she should be taking it for a cardiac region. I will get in touch with her facility. Brayan Taylor MD documented in this encounter Miscellaneous Notes * Addendum Note - Brayan Taylor MD - 03/20/2024 1130 EDTAddended by: BRAYAN TAYLOR on: 03/20/2024 13:58 Modules accepted: Orders documented in this encounter Plan of Treatment Upcoming Encounters Date Type Department Care Team (Late st Contact Info) Description 03/04/2025 14:00 EDT Telemedicine [facility] Neurology Clinic [address] [place] [phone] Brayan Taylor MD [address] [place] [address]- [address] [place] [phone] 07/14/2025 14:30 EDT Office Visit [facility] Hematology & Oncology - [address] [address] Evin Maria MD [address] [place] [address], [address] [place] [phone] documented as of this encounter Visit Diagnoses Diagnosis Sensory neuronopathy [G54.9]- Primary Unspecified nerve root and plexus disorder Vitamin B deficiency Unspecified vitamin B deficiency Focal epilepsy (HCC-CMS) Localization-related (focal) (partial) epilepsy and epileptic syndromes with simple partial seizures, without mention of intractable epilepsy documented in this encounter Discontinued Medications Medication Sig Discontinue Reason Start Date End Da te aspirin 81 mg EC tablet Take 1 Tablet by mouth daily. Error 03/20/2024 documented as of this encounter Care Teams Crib Pad Maker Relationship Specialty Start Date End Date Romario Hairston MD [address] [place] [address] PCP - General 07/06/20 documented as of this encounter
--- OUTSIDE RECORDS SUMMARY | 2024-12-03 15:51 | XMS_ITS | Encounter Summary ---
Author Organization [facility] Address [address] [place] [address] Care Team Providers Care Aviation Maintenance Instructor Name Role Phone Romario Hairston MD Primary Care Provider [phone] Reason for Visit * Auth/Cert (Routine) Specialty Diagnoses / Procedures Referred By Mitch pruett Referred To Contact Diagnoses Weakness Referral ID Status Reason Start Date Expiration Date Visits Re quested Visits Authorized [id number] 1 1 Encounter Details Date Type Department Care Team (Late st Contact Info) Description 02/20/2024 0:25 EDT - 02/25/2024 11:17 EDT Hospital Encounter [facility] Unit [address] [place] [address] Socorro Soto, DO 1 [facility] [address] [place] [id number] Cheryl Rehman MD [address] 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] (Primary Dx); Ataxia; Vitamin B deficiency; Nutritional deficiency; Encephalopathy; Hypomagnesemia; Depression, unspecified depression type; Anxiety; PTSD (post-traumatic stress disorder); History of cerebral venous sinus thrombosis; Acute cystitis without hematuria; Primary hypertension Discharge Disposition: Nursing Facility (Skilled) Social History Tobacco Use Types Packs/Day Years [...] on file documented as of this encounter Last Filed Vital Signs Vital Sign Reading [...] Body Mass Index 27.96 02/20/2024 0100 EDT documented in this encounter Functional Status * Are you [...] Sallie Sewell LPN documented in this encounter Discharge Summaries * Haile White MD - 02/25/2024 0644 EDT Neurology Discharge Summary Primary Care Provider: Romario Hairston Attending Physician: Cheryl Rehman MD Admit Date: 02/20/24 Discharge Date: 02/25/2024 Disposition: detention facility/Subacute rehab Problems Presenting Problem: Diffuse weakness Principal/Final Diagnosis: 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 Hospital Course Ynes White is a 54 y.o. 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 The patient is now transferred here to [facility] for concern for Guillain-Aguila?? and neuromuscular consultation. [facility] Course: Patient was admitted to [facility] after a fall and a left ankle sprain with a small avulsion fracture. Neurology at [facility] was consulted for diffuse weakness for which she had an EMG that was concerning forsensory neuronopathy vs. Sensory variant AIDP. MRI head was notable for known left temporal and parietal chronic post-surgical changes and no new acute findings. Given concern for sensory neuronopathy, she underwent CT C/A/P which was negative for occult malignancy. LP performed at [facility] was notablefor CSF protein over 250 without nucleated cells seen. Workup also included hepatitis B, hepatitis C, HIV, VZV, HSV, enterovirus, West Nile virus, SSA/SSB, which were all negative. She was started onIVIG on 02/17. [facility] Course: Neuromuscular neurology was consulted and repeat EMG was completed with results consistent with sensory neuronopathy vs. severe axonal sensory polyneuropathy. She completed her 5 day course of IVIG on 02/21. So far no definitive cause has been identified as a cause for her sensory neuronopathy, and additional labs were requested as add ons to [facility] blood draws including Anti-Ro60, Anti-Ro52, dsDNA,RF. She was also noted to have a severe B12 deficiency thought to be contributing to her presentation for which she received IM repletion. Given history of poor nutrition ROD PLACER, she underwent expanded nutritional work up which was pending on discharge, but preliminary results notable for vitamin d def iciency, for which she was started on supplementation. PT/OT were consulted and recommended discharge to [facility]. Medications Current Facility-Administered Medications Medication Route Frequency acetaminophen (TYLENOL) tablet 325 mg oral Q4H PRN apixaban (ELIQUIS) tablet 2.5 mg oral BID bisacodyL (DULCOLAX) suppository 10 mg rectal Daily PRN blood thinner patient education booklet 1 Each other Once (Without Time Specified) buPROPion (WELLBUTRIN SR) SR tablet 100 mg oral BID cholecalciferol (Vitamin D3) tablet 1,000 Units oral DAILY cyanocobalamin (VITAMIN B12) injection 1,000 mcg intramuscular DAILY EPINEPHrine (ADRENALIN) injection 0.3 mg intramuscular PRN folic acid (FOLVITE) tablet 1 mg oral DAILY melatonin tablet 5 mg oral QHS methocarbamoL (ROBAXIN) tablet 500 mg oral BID PRN methylPREDNISolone sod suc(PF) (SOLU-MEDROL) injection 100 mg intravenous PRN qxjmpend-wyr-iksd fum-folic ac 7.5 mg iron-400 mcg tablet 1 Tablet oral DAILY OLANZapine (ZYPREXA) tablet 20 mg oral QHS pantoprazole (PROTONIX) tablet 40 mg oral DAILY polyethylene glycol 3350 (MIRALAX) packet 17 g oral DAILY Prazosin (MINIPRESS) capsule 1 mg oral QHS pregabalin (LYRICA) capsule 100 mg oral BID propRANolol (INDERAL) tablet 10 mg oral TID PRN senna (SENOKOT) tablet 1 Tablet oral QHS thiamine (VITAMIN B-1) 500 mg in sodium chloride (NS) 0.9 % 50 mL IVPB intravenous TID Follow Up #Sensory ganglionopathy vs. Severe axonal sensory polyneuropathy - Add on requested for ENS2 panel from [place] - Add ons requested per [facility] lab (Anti-Ro60, Anti-Ro52, dsDNA, RF) #B12 deficiency, suspected pernicious anemia #Folate deficiency #Concern for malnutrition - Continue ROD PLACER folic acid 1mg daily - B12 1000 mcg daily for 7 days then weekly for 8 weeks then monthly - continue thiamine supplementation at 100mg daily - Intrinsic factor antibody on 02/16 was positive, but Ynes had been administered B12 injection on 02/15, which can cause false positive IFAb test - Repeat IFAb on 03/01 - multivitamin daily - F/u Vitamins B1, B2, B3, B6, B7, A, E, chromium, selenium, copper, zinc, and coenzyme Q10 Vitamin D deficiency - vitamin D 1000 units daily Allergies and Immunizations Allergies Allergen Reactions Citalopram Other reaction(s): increased anxiety Duloxetine Other reaction(s): increased anxiety Gabapentin Levetiracetam Anxiety Trazodone Zolpidem Other reaction(s): sleep walking with over 5 mg Immunization History Administered Date(s) Administered Covid-19 mRNA, oliver Ready to Use Vaccine (Minuum READY TO USE COVID-19) PF 0.3 mL IM (12 yrs+) 03/09/2022 Influenza Vaccine Quad PF 0.5 ml IM (6 mos+) 03/09/2022 Transition of Care Plans Condition at Discharge Stable Neurological Exam at Discharge Mental status: The patient is AOx2 to person and hospital (when given options). Able to follow simple commands, but often requires repeated prompting Speech: Moderate dysarthria present. Able to repeat simple phrases only. Cranial nerves: CN II: Visual fam not tested due to limited patient ability. Pupils are 2 mm and not reactive tolight. CN III, IV, : EOMMs intact with no nystagmus, gaze palsy or preference. CN V: Facial sensation is intact to light touch in all 3 divisions bilaterally. CN VII: Face is symmetric with normal eye closure and drooping smile. CN VIII: Hearing is normal to rubbing fingers / grossly intact. Motor: (Exam limited due to cooperation and understanding). Arms raise against gravity. Muscle bulkis diminished but tone is normal. Category Manager strength 3/5 bilaterally. Shoulder strength 5/5. Rest of strength test deferred d/t patient request. Reflexes DTR Right Left Biceps (C5-6) 0 1 BR (C5-6) 0 0 Triceps (C7-8) 0 0 Patellar (L3-4) 0 0 Achilles (S1-2) 0 - Ankle Clonus absent - Plantar downgoing - LLE untested due to fracture. Sensory: Light touch: diminished in bilateral legs and lower arms Coordination, Gait: Not tested due to limited patient ability. Results Pending at Discharge Test results still pending from this admission Procedure Component Value Units Date/Time Chromium Serum [[id number]] Collected: 02/22/24 1014 Lab Status: In process Specimen: Blood, Venous Updated: 02/22/24 1032 Zinc, Serum [[id number]] Collected: 02/22/24 1014 Lab Status: In process Specimen: Blood, Venous Updated: 02/22/24 1032 Riboflavin (Vitamin B2), P [[id number]] Collected: 02/22/24 1014 Lab Status: In process Specimen: Blood, Venous Updated: 02/22/24 1032 Vitamin E, Serum [[id number]] Collected: 02/22/24 1013 Lab Status: In process Specimen: Blood, Venous Updated: 02/22/24 1032 HTLV I/II [[id number]] Collected: 02/22/24 1013 Lab Status: In process Specimen: Blood, Venous Updated: 02/22/24 1032 Miscellaneous TestAsael [[id number]] Collected: 02/22/24 1014 Lab Status: In process Specimen: Blood, Venous Updated: 02/22/24 1032 Copper, Serum [[id number]] Collected: 02/22/24 1014 Lab Status: In process Specimen: Blood, Venous Updated: 02/22/24 1032 Selenium, S [[id number]] Collected: 02/22/24 1014 Lab Status: In process Specimen: Blood, Venous Updated: 02/22/24 1032 Pyridoxal 5 Phosphate (PLP), Plasma [[id number]] Collected: 02/22/24 1013 Lab Status: In process Specimen: Blood, Venous Updated: 02/22/24 1032 Miscellaneous Test, Asael [[id number]] Collected: 02/15/24 0639 Lab Status: In process Specimen: Blood, Venous Updated: 02/21/24 2007 Miscellaneous Test, Asael [[id number]] Collected: 02/21/24 173 Lab Status: In process Specimen: Blood, Venous Updated: 02/21/24 1745 Miscellaneous Test, Asael [[id number]] Collected: 02/21/24 173 Lab Status: In process Specimen: Blood, Venous Updated: 02/21/24 1745 Miscellaneous Test, Vyas [[id number]] Collected: 02/21/24 173 Lab Status: In process Specimen: Blood, Venous Updated: 02/21/24 1739 Thiamin (Vitamin B1), WB [[id number]] Collected: 02/21/24 0650 Lab Status: In process Specimen: Blood, Venous Updated: 02/21/24 0746 Relevant Studies at Discharge XR CHEST PORTABLE 1 VIEW Result Date: 02/21/2024 No acute abnormality. [id number] Last Lab Results at Discharge CBC Recent Labs 02/23/24 0804 WBC 3.25* RBC 3.13* HGB 10.8* HCT 30.8* MCV 98 PLT 196 BMP Recent Labs 02/23/24 0804 NA 138 K 4.3 CL 105 CO2 20* ANIONGAP 13 BUN 14 CREATININE 0.67 CALCIUM 8.9 MG 1.7 PHOS 5.3* CALCGFR 103 Discharge Follow Up Upcoming Appointments Mar 20, 2024 11:30 Follow Up Visit with Brayan Polk MD [facility] (--) [address] [facility] [address] Discharge Handoff Communication Contact was not made at the time of discharge HAILE WHITE MD 02/25/2024 6:36 Cosigned by Cheryl Rehman MD at 02/26/2024 6:45 EDT Associated attestation - Cheryl Rehman MD - 02/26/2024 0645 EDT ATTENDING ATTESTATION: I performed or was present during the wells or critical portions of the visit and participated in the management of the patient on 02/25/24. I agree with the findings and plan ofcare as documented in the resident's note. Sensory axonal neuropathy - much of extensive workup remains pending but B12 deficiency in setting of suspected pernicious anemia is certainly contributing Urinary retention -leaving with Reyes in place; urinary retention likely 2/2 above. -will need void trials in rehab. >30 mins spent on discharge process. Cheryl Rehman MD, Attending Physician, Neurology documented in this encounter Medications at Time of Discharge acetaminophen (TYLENOL) 325 mg tablet Take 1 Tablet by mouth every 4 hours as needed for Pain. 02/25/2024 apixaban (ELIQUIS) 2.5 mg tablet Take 1 Tablet by mouth 2 times daily. 60 Tablet 6 05/29/2023 buPROPion (WELLBUTRIN SR) 100 mg SR tablet Take 1 Tablet by mouth 2 times daily. 02/25/2024 cholecalciferol, Vitamin D3, 25 mcg (1,000 unit) tablet Take 1 Tablet by mouth daily. 02/25/2024 melatonin 5 mg tablet Take 1 Tablet by mouth at bedtime. 02/25/2024 metoclopramide HCl (REGLAN) 5 mg tablet Take 1 Tablet by mouth 3 times daily before meals. 90 Tablet 03/28/2022 aijgrciy-zie-ippv fum-folic ac 7.5 mg iron-400 mcg tablet Take 1 Tablet by mouth daily. 02/25/2024 omeprazole (PRILOSEC) 20 mg capsule TAKE 1 CAPSULE BY MOUTH EVERY DAY 30 MINUTES BEFORE BREAKFAST 07/05/2021 polyethylene glycol 3350 (MIRALAX) 17 gram packet Take 17 g by mouth daily. 02/25/2024 Prazosin (MINIPRESS) 1 mg capsule Take 1 Capsule by mouth at bedtime. 08/09/2020 pregabalin (LYRICA) 100 mg capsule Take 1 Capsule by mouth 2 times daily. Daily Max: 200 mg 180 Capsule 1 01/27/2024 senna (SENOKOT) 8.6 mg tablet Take 1 Tablet by mouth at bedtime. 02/25/2024 aspirin 81 mg EC tablet Take 1 Tablet by mouth daily. bisacodyL (DULCOLAX) [address] Suppository rectally daily as needed for Constipation. 02/25/2024 bisacodyL (DULCOLAX) 5 mg EC tablet Take 2 Tablets by mouth daily. cyanocobalamin (VITAMIN B12) 1,000 mcg/mL injection Inject 1 mL into the muscle daily. 02/25/2024 folic acid (FOLVITE) 1 mg tablet Take 1 Tablet by mouth daily. 02/25/2024 ibuprofen (MOTRIN) 200 mg tablet Take 2 Tablets by mouth 3 times daily as needed for Pain. methocarbamoL (ROBAXIN) 500 mg tablet Take 1 Tablet by mouth 2 times daily as needed for Pain or Muscle Spasms. 02/25/2024 OLANZapine (ZYPREXA) 20 mg tablet Take 1 Tablet by mouth at bedtime. 12/05/2022 propRANolol (INDERAL) 10 mg tablet TAKE 1 TABLET BY MOUTH EVERY MORNING, 1 TABLET EVERY AFTERNOON AND 2 TABLETS EVERY NIGHT AT BEDTIME NEEDED FOR ANXIETY. 360 Tablet 3 01/08/2024 4 documented as of this encounter Ordered Prescriptions Prescription Sig Dispense Quantity Refills Last Filled Start Date End Date senna (SENOKOT) 8.6 mg tablet Take 1 Tablet by mouth at bedtime. 02/25/2024 polyethylene glycol 3350 (MIRALAX) 17 gram packet Take 17 g by mouth daily. 02/25/2024 cholecalciferol, Vitamin D3, 25 mcg (1,000 unit) tablet Take 1 Tablet by mouth daily. 02/25/2024 kgttnacv-uzz-xlnl fum-folic ac 7.5 mg iron-400 mcg tablet Take 1 Tablet by mouth daily. 02/25/2024 acetaminophen (TYLENOL) 325 mg tablet Take 1 Tablet by mouth every 4 hours as needed for Pain. 02/25/2024 melatonin 5 mg tablet Take 1 Tablet by mouth at bedtime. 02/25/2024 buPROPion (WELLBUTRIN SR) 100 mg SR tablet Take 1 Tablet by mouth 2 times daily. 02/25/2024 bisacodyL (DULCOLAX) [address] 1 Suppository rectally daily as needed for Constipation. 02/25/2024 cyanocobalamin (VITAMIN B12) 1,000 mcg/mL injection Inject 1 mL into the muscle daily. 02/25/2024 4 folic acid (FOLVITE) 1 mg tablet Take 1 Tablet by mouth daily. 02/25/2024 methocarbamoL (ROBAXIN) 500 mg tablet Take 1 Tablet by mouth 2 times daily as needed for Pain or Muscle Spasms. 02/25/2024 4 documented in this encounter Discharge Disposition Disposition Code Departure Means Destination Comment s Nursing Facility (Skilled) Skilled N ursing documented in this encounter Progress Notes * Isabell Yanes PT - 02/25/2024 1117 EDT [facility] Rehabilitation Therapy [facility] Physical Therapy Discontinue/Discharge Note Date of Service: 02/25/2024 Pt was seen for eval 02/23;refer to assessment for recommendations/details Pt was dc to [facility] this morning No further acute PT services provided Pager: [phone] ISABELL YANES PT 02/25/2024 11:28 * Isabell Montenegro OT - 02/25/2024 1117 EDT [facility] Rehabilitation Therapy [facility] Therapy [facility] Occupational Therapy Contact Note Date of Service: 02/25/2024 OT has been following pt. Please see OT contact note dated 02/24/2024 for details. Pt has been DC'ed from the hospital to [facility]. OT evaluation not completed prior to DC. Isabell Montenegro OT, 02/25/2024, 12:02 * Uriah Kumari - 02/24/2024 1911 EDT Data: 54 yo female. HD#4. 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 Alert to person. Incontinent and vida. Reyes in place for acute urinary retention. Pt alert and responds to commands. On tele; sinus tachy. Diet dysphagia stage 2 diet. Encouraged fluids. Diet calorie account. Reported 6 out of 10 pain LLE due to ankle fracture related to r/t to fall at home. Peripheral IV anterior left upper arm. Action: Medication administered per JAN. Q 4 neuro/vitals. Q 2 turns. Assessed pain and encouraged to use call farris for needs. IV flushed and capped. Reyes care. Response: Pt resting in bed comfortable with call farris within reach. Denies pain. No new neuro deficits noticed. No new needs expressed at this time. Uriah Kumari 02/24/2024 19:11 Cosigned by Cecelia Miller RN at 02/24/2024 19:40 EDT * Isabell Montenegro OT - 02/24/2024 1440 EDT [facility] Therapy Acute Therapy [facility] Occupational Therapy Contact Note Date of Service: 02/24/2024 OT continues to follow pt. Pt has already been recommended for [facility] by PT. Per CM pt has a bed offerfor [facility] at [facility] and will be DC'ing tomorrow at 10:00. Will defer OT evaluation for now in this setting as pt will be DC'ing shortly and can have skilled OT needs addressed at[facility], however OT will continue to follow while inpatient and will initiate evaluation as appropriate if for some reason the DC plan changes or becomes significantly delayed. Isabell Montenegro OT, 02/24/2024, 14:40 * Simi Correa - 02/24/2024 1403 EDT Discharge Note CASE MANAGEMENT DISCHARGE NOTE DISCHARGE DATE/TIME: 02/25/2024 @ 10:00 DESTINATION: [facility] (If discharging to [facility]) COVID swab ordered and completed: TRANSPORTATION: [facility] ACCEPTING MD AND NUMBER: RN REPORT/UNIT: [phone] RV BODY MECHANIC/CHARGE/MD NOTIFIED (Y/N): Y FORMS: (Acute to acute, COLST, MOLST, CANDIDA, Screen, PASRR, Ambulance): PASRR, COLST, Ambulance IM SIGNED (Y/NA): Y HOME HEALTH: n/a DME: n/a PHARMACY/PRESCRIPTIONS: n/a MEDS TO BEDS UTILIZED : YES/NO n/a Patient and/or family who participated in discharge plan: Sister, Lucille Chapa Destination Confirmation: This Load Checker has personally and directly confirmed with patient's receiving support person thefollowing discharge plan and destination details. Support Person's Name: Lucille Chapa (sister) Contact Information: [phone] Destination Address & Description: [facility] Anticipated Discharge date/time: 02/25/2024 Transportation modality: Ambulance The aforementioned support person acknowledged an understanding to the information shared with thisplan. Yes OTHER: Simi Correa RN MSN CCM manager of financial reporting Pager [phone] * Isabell Yanes, PT - 02/24/2024 1225 EDT [facility] Rehabilitation Therapy Acute Therapies [facility] Physical Therapy Initial Evaluation Note Date of Service: 02/24/2024 Reason for Referral: Evaluate and treat Precautions: Up with assistance, Fall precautions, and WBAT LLE with boot SUBJECTIVE: Pt reports she hasn't walked in months Pain: L ankle ; not rated. 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 Repeat EMG completed and results consistent with sensory neuronopathy vs. Severe axonal sensory polyneuropathy. PatientProfile: Patient is a 54 y.o. 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 Entry stairs No stairs Prior Level of Function: non ambulatory at baseline; indep with wc propulsion and transfers/bed mobility. Several falls Services prior to admission: Home health nursing, Home health physical therapy, and [facility] Work/Leisure: doesn't work Medical/Surgical History: Medical history reviewed. XR CHEST PORTABLE 1 VIEW 02/21/2024 9:20 AM Clinical History/comments: hypotension, tachycardia; Comparisons: None. Technique: AP view of the chest. Findings: The lungs are clear aside from platelike atelectasis or scarring at the base of the left lung. There is no evidence of pleural disease or pneumothorax although neither is entirely excluded on this non-upright study. The cardiac silhouette and pulmonary vascularity are normal. The skeleton is unremarkable for age. Impression: No acute abnormality. Medications: Medications reviewed Arousal, Attention, and Cognition: Orienta Alert Oriented to self. Difficulty following simple commands Cardiopulmonary: Vital Signs:supine 124/84 RA>92% throughout HR 125-132 Integumentary/Anthropometric Characteristics: Palpation/Observation: Refer to RN notes; limited skin assessment due to mobility impairments Posture: Not evaluated secondary to limited mobility Range of Motion and Joint Integrity: PROM/AAROM RLE wnl in supine. PROM/AAROM L knee/hip wnl in supine; limited L ankle DF due to pain associated with recent ankle fracture Muscle Performance: Refer to OT for UE status. RLE; ankle DF 1/5, PF 1/5, knee extension 2-/5, hip flexion 1/5. LLE ankle N/E due to pain associated with recent fracture, L knee extension 2-/5, L hip flexion 1/5 Sensation, Reflexes, and Nerve Integrity: Pt unable to participate in formal sensory assessment; difficulty following basic commands Neuromotor Function/Development: Mild dysarthria, no tremors noted. Global weakness Balance, Mobility, and Gait: Balance: N/E due to evaluation limited to bedside examination Mobility: During all activities performed this patient was provided cues and education. These were provided to give movement techniques to: optimize ability for patient to participate in and perform task and optimize patient safety Rolling: total assistance Further mobility held; pt needs total assist/vida for OOB<>chair Gait: Not evaluated as patient unable to progress to ambulatory level today. Self-Care, Home Management, Work, and Leisure: N/E at this time Outcomes: Please refer to individual sections for any outcome measures that were performed Informed Consent: The patient consented to the physical therapy evaluation. The patient agrees to and understands the physical therapy treatment plan and goals. Interventions Completed Today: Physical Therapy today at: 1045 Total treatment time: 20 minutes. Timed code treatment minutes: 0 Intervention included: No interventions completed today Patient/Family Education: Topic: Bed mobility Discharge planning Positioning Role of therapy Safety Learner: patient Method: verbal Barriers to Learning: cognitive deficits Outcome: requires assist Team Communication: Nurse asphalt plant worker/dependency case manager Face to face communication and Epic secure chat Prior to therapy session and After therapy session Performance during Physical Therapy and recommendations for mobility with nursing and Patient status ASSESSMENT: Physical Therapy Diagnosis: This patient presents with a Physical Therapy diagnosis of :Impaired mobility, Impaired movement system, Impaired self care, Impaired ventilation, respiration, and Pain impacted by impairments of: activity tolerance, balance, cognition, endurance, motor control, muscle strength, pain, respiration, safety awareness, sensation, sitting tolerance, and ventilation Physical Therapy Prognosis: Physical therapy is medically necessary to: address these body structure/function impairments, activity limitations, and participation restrictions, improve safety and independence, and provide family/caregiver education to assist the patient Current status compared to baseline level of function: below prior level of function Anticipated rate of progress: unclear at this time Progress may be affected by the following: strengths: home environment and previous level of function barriers: cognitive impairment, decreased safety awareness, endurance, fall risk, level of weakness/debility, limited insight into deficits, limited support, pain, participation level, and severity of condition/impairments Discharge recommendations: ABDIAZIZ Short-Term Goals: N/A Long-Term Goals: 1-3 weeks The patient will be able to perform bed mobility with moderate assist of 2 demonstrating appropriate sequencing/motor planning. The patient will be able to perform transfers with moderate assist of 2 while demonstrating an effective strategy for recovery of loss of balance. Pt will participate in BLE therex program with assistance for strengthening Pt will maintain seated EOB balance >5 minutes mincontact ax1 The patient and/or caregiver will be aware of the PT recommendations provided and verbalize and/or demonstrate understanding of the recommendations. PLAN: Necessity: Physical Therapy will be provided by physical therapist and/or physical therapist assistant store manager operations when medically appropriate Frequency: 1-3x/wk Intensity: 15-60 minutes Duration: During hospitalization Intervention to include: Neuromuscular re-education, Therapeutic activities, Therapeutic exercise Patient/Family Education: Role of PT, Discharge planning, Equipment, Safety Further Data: Mobility progression Recommended Discharge Destination: Sub-acute Rehabilitation Recommended Discharge Services: Physical therapy at rehabilitation facility Recommended Equipment Needs: To be determined by next care provider Other recommendations: No other consults recommended at this time Pager: [phone] ISABELL YANES PT 02/24/2024 12:25 * Haile White MD - 02/24/2024 0855 EDT Neurology Progress Note Service Date: 02/24/2024 Admit Date: 02/20/2024 0:25 Reason for Admission: 54 y.o. female admitted for evaluation of diffuse extremity weakness and sensory loss. 24 Hour Events: - fluid bolus given after persistent tachycardia in 120s, ongoing - EKG completed Subjective Isabell is very sleepy today and wants to be left alone so she can get some rest. Review of Systems A ten point review of systems was performed and was negative except for pertinent positives noted in the HPI Objective Vital Signs Temp: [35.8 ??C (96.4 ??F)-36.1 ??C (97 ??F)] , Heart Rate: [100 BPM-121 BPM] , Resp: [14-18] , BP:(124-164)/(84-105) , SpO2: [94 %-96 %] Neurological Exam Mental status: The patient is AOx2 to person and place. Able to follow simple commands. Speech: Moderate dysarthria present. Able to repeat simple phrases only. Cranial nerves: CN II: Visual fam not tested due to limited patient ability. Pupils are 2 mm and not reactive tolight. CN III, IV, : EOMMs intact with no nystagmus, gaze palsy or preference. CN V: Facial sensation is intact to light touch in all 3 divisions bilaterally. CN VII: Face is symmetric with normal eye closure and drooping smile. CN VIII: Hearing is normal to rubbing fingers / grossly intact. Motor: (Exam limited due to cooperation and understanding). Arms raise against gravity. Muscle bulkis diminished but tone is normal. Category Manager strength 3/5 bilaterally. Shoulder strength 5/5. Rest of strength test deferred d/t patient request. Reflexes DTR Right Left Biceps (C5-6) 0 1 BR (C5-6) 0 0 Triceps (C7-8) 0 0 Patellar (L3-4) 0 0 Achilles (S1-2) 0 - Ankle Clonus absent - Plantar downgoing - LLE untested due to fracture. Sensory: Light touch: diminished in bilateral legs and lower arms Coordination, Gait: Not tested due to limited patient ability. 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 Repeat EMG completed and results consistent with sensory neuronopathy vs. Severe axonal sensory polyneuropathy. The differential for sensory neuronopathies is as follows: autoimmune (Sjogren???s syndrome, FGFR3 associated neuronopathy, SLE, celiac disease, autoimmune hepatitis, immune checkpoint inhibitors such as pembrolizumab), paraneoplastic (which can present prior to a cancer diagnosis), toxicity (B6 tox icity, match-e-be-nash-she-wish band-based chemotherapy), infectious (rarely triggered by HIV, HTLV- 1, EBV, VZV, leprosy, enterovirus, zika), idiopathic (50%, presumed to be autoimmune). So far no definitive cause has been identified and autoimmune (SSA/SSB) and malignancy (CT C/A/P) work up has been unremarkable. Do suspect that severe nutritional deficiencies including severe B12 deficiency may be contributing to her presentation; workup expanded as below. Now medically appropriate for discharge to [facility] and outpatient neurology follow up. Plan Sensory ganglionopathy vs. Severe axonal sensory polyneuropathy - IVIG 0.4 g/kg for 5 days (last day of treatment on 02/21) - Pulmonary mechanics Q8H (no respiratory involvement so far) - PT/OT consult pending - Add on requested for ENS2 panel from [place] - Add ons requested per [facility] [place] lab (Anti-Ro60, Anti-Ro52, dsDNA, RF) - Will defer full body PET at this time, though this can be considered pending clinical course - Consider additional cognitive workup pending clinical course B12 deficiency, suspected pernicious anemia Folate deficiency Concern for malnutrition - Intrinsic factor antibody on 02/16 was positive, but Ynes had been administered B12 injection on 02/15, which can cause false positive IFAb test - Repeat IFAb on 03/01 per outside records - Continue ROD PLACER folic acid - B12 1000 mcg daily for 7 days then weekly for 8 weeks then monthly - high dose thiamine - multivitamin daily - daily weights - calorie count x 72 hours - Measure K+, phos, Mg+ every day - F/u Vitamins B1, B2, B3, B6, B7, A, E, D, chromium, selenium, copper, zinc, and coenzyme Q10 - Nutrition consult, appreciate recommendations Vitamin D deficiency - start vitamin D 1000 units daily Ileus / Pseudo-obstruction, resolving - Continue senna, Miralax, bisacodyl OTHER CONDITIONS Avulsion fracture of left ankle: Boot in place, scheduled acetaminophen, PRN PO hydromorphone 1 mg Q 12 H. Chronic pain: ROD PLACER pregabalin BID, ROD PLACER PRN methocarbamol UTI, caused by dickens-sensitive E.Coli: S/p CTX Prior cerebral venous sinus thrombosis and provoked PE: ROD PLACER apixaban 2.5 mg BID Hypertension: Propranolol Hypomagnesemia: continue monitoring, replete PRN Hyponatremia, mild, asymptomatic, likely hypovolemic, improving: Monitor, encourage PO intake Depression / Anxiety / PTSD: ROD PLACER bupropion, olanzapine, prazosin, propranolol GERD: ROD PLACER pantoprazole daily VTE Prophylaxis On apixaban 2.5 mg BID Discharge Plan DC to [facility] on 02/25/24 Consults Neuromuscular consult Mandeep Cruz, MS3 I was present with the medical student for the history, exam, and medical decision making documented. I have edited the medical student note as appropriate. Seen and discussed with neurology attending, Dr. Ori White MD, Neurology PGY-2 02/24/2024 17:53 Pager #[phone]/Epic Chat Cosigned by Cheryl Rehman MD at 02/25/2024 7:30 EDT Associated attestation - Cheryl Rehman MD - 02/25/2024 0730 EDT ATTENDING ATTESTATION: I performed or was present during the wells or critical portions of the visit and participated in the management of the patient on 02/24/24. I agree with the findings and plan ofcare as documented in the resident's note. Patient is a poor historian, likely residual aphasia from prior ICH. She is unable to provide an accurate timeline for onset of imbalance/coordination and other symptoms but given EMG findings, course has likely been progressive vs chronic, and less likely subacute or acute. On exam, which is limited due to patient comprehension, she is oriented to self only, but not place, month or year. She is unable to follow simple commands and persistent comprehensive>expressive aphasia. Movement of her extremities is suggestive of a diffuse sensory ataxia, though again, exam is limited. She has 1+ reflex in LUE biceps but no other reflexes could be elicited. 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 Extensive workup in progress, but notable for low B12 and other nutritional deficiencies (pt does endorse not eating well at home). S/p empiric IVIG, though no evidence of demyelination and constellation of findings is not c/w GBS. 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 RT ARTHUR 02/23/24 * Matilda Melton MD - 02/23/2024 1124 EDT Neurology Progress Note Service Date: 02/23/2024 Admit Date: 02/20/2024 0:25 Reason for Admission: 54 y.o. female admitted for evaluation of diffuse extremity weakness and sensory loss. 24 Hour Events: NAEO Subjective Ms. White says she is sleepy today but is feeling ok. She has no complaints. Requests to sleep more. Review of Systems A ten point review of systems was performed and was negative except for pertinent positives noted in the HPI Objective Vital Signs Temp: [35.8 ??C (96.4 ??F)-36.7 ??C (98.1 ??F)] , Heart Rate: [98 BPM-110 BPM] , Resp: [16-20] , BP: (111-162)/(84-99) , SpO2: [93 %-98 %] Neurological Exam Mental status: The patient is AxOx1 to person only. Follows simple commands. Speech: Moderate dysarthria present. Cranial nerves: CN II: Visual fam not tested due to limited patient ability. Pupils are 2 mm and not reactive tolight. CN III, IV, : EOMMs [previously] intact with no nystagmus, gaze palsy or preference. No ptosis. CN V: Facial sensation is intact to light touch in all 3 divisions bilaterally. Normal masseter bulk. CN VII: Face is symmetric with normal eye closure and drooping smile. CN VIII: Hearing is normal to rubbing fingers / grossly intact. Motor: Arms raise antigravity. Muscle bulk is diminished and tone is normal. No tremors or abnormalmovements noted during exam. Wiggles toes. Formal strength testing deferred per patient request. Reflexes DTR Right Left Biceps (C5-6) 0 0 BR (C5-6) 0 0 Triceps (C7-8) 0 0 Patellar (L3-4) 0 0 Achilles (S1-2) 0 - Ankle Clonus absent - Plantar downgoing - LLE untested due to fracture. Sensory: Light touch: diminished in bilateral legs and lower arms Coordination, Gait: Not tested due to limited patient ability. Labs Reviewed CBC: Recent Labs 02/21/24 0650 02/22/24 1126 02/23/24 0804 WBC 3.10* 2.49* 3.25* HGB 11.4* 10.3* 10.8* HCT 32.8* 29.4* 30.8* MCV 99* 100* 98 PLT 200 195 196 BMP: Recent Labs 02/21/24 0650 02/22/24 1013 02/23/24 0804 NA 134* 137 138 K 4.3 3.9 4.3 CL 104 107 105 CO2 21* 22 20* BUN 10 10 14 CREATININE 0.70 0.73 0.67 MG 1.7 1.6* 1.7 PHOS -- 4.6* 5.3* CALCIUM 9.1 8.8 8.9 SERGLU 87 123* [address] ABDOMEN PELVIS W CONTRAST Result Date: 02/18/2024 1. No acute intra-abdominal finding. 2. No occult intra-abdominal malignancy. THIS DOCUMENT HAS BEEN ELECTRONICALLY SIGNED BY RAQUEL FELIZ MD FOR ANY QUESTIONS OR CONCERNS REGARDING THIS REPORT PLEASE CALL [facility] AT [phone] CT CHEST W CONTRAST Result Date: 02/18/2024 No intrathoracic occult malignancy. COMMENTS: Consistent with the [employer]'s Incidental Findings Committee white paper (J Am Adelfo Radiol 2015): In patients aged 35 years and older with an incidental thyroid nodule equal to or greater than 1.[address], MRI or extrathyroidal US, further evaluation with dedicated thyroid US is recommended for patients with normal life expectancy and without comorbidities. For smaller nodules without suspicious features, no further evaluation or follow up is recommended. THIS DOCUMENT HAS BEEN ELECTRONICALLY SIGNED BY RAQUEL FELIZ MD FOR ANY QUESTIONS OR CONCERNS REGARDING THIS REPORT PLEASE CALL [facility] AT [phone] MR CERVICAL SPINE WO CONTRAST Addendum Date: 02/14/2024 THIS REPORT CONTAINS FINDINGS THAT MAY BE CRITICAL TO PATIENT CARE. The findings were verbally communicated via telephone conference with Dr. Queen at 7:54 PM EDT on 02/14/2024. The findings were acknowledged and understood. THIS DOCUMENT HAS BEEN ELECTRONICALLY SIGNED BY LULU PATEL MD FOR ANY QUESTIONS OR CONCERNS REGARDING THIS REPORT PLEASE CALL [facility] AT [phone] Result Date: 02/14/2024 Unremarkable cervical spine MRI. THIS DOCUMENT HAS BEEN ELECTRONICALLY SIGNED BY LULU PATEL MD FOR ANY QUESTIONS OR CONCERNS REGARDING THIS REPORT PLEASE CALL [facility] AT [phone] MR HEAD WO CONTRAST Addendum Date: 02/14/2024 THIS REPORT CONTAINS FINDINGS THAT MAY BE CRITICAL TO PATIENT CARE. The findings were verbally communicated via telephone conference with KWABENA KEVIN at 5:58 PM EDT on 02/14/2024. The findings were acknowledged and understood. THIS DOCUMENT HAS BEEN ELECTRONICALLY SIGNED BY XUAN JOHNSON DO FORANY QUESTIONS OR CONCERNS REGARDING THIS REPORT PLEASE CALL [facility] AT [phone] Result Date: 02/14/2024 No acute intracranial abnormality. Left temporal and parietal chronic postsurgical changes. 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 Repeat EMG completed and results consistent with sensory neuronopathy vs. Severe axonal sensory polyneuropathy. The differential for sensory neuronopathies is as follows: autoimmune (Sjogren???s syndrome, FGFR3 associated neuronopathy, SLE, celiac disease, autoimmune hepatitis, immune checkpoint inhibitors such as pembrolizumab), paraneoplastic (which can present prior to a cancer diagnosis), toxicity (B6 tox icity, match-e-be-nash-she-wish band-based chemotherapy), infectious (rarely triggered by HIV, HTLV- 1, EBV, VZV, leprosy, enterovirus, zika), idiopathic (50%, presumed to be autoimmune). So far no definitive cause has been identified and autoimmune (SSA/SSB) and malignancy (CT C/A/P) work up has been unremarkable. Do suspect that severe nutritional deficiencies including severe B12 deficiency may be contributing to her presentation; plan to expand nutritional work up as below. Plan Sensory ganglionopathy vs. Severe axonal sensory polyneuropathy - IVIG 0.4 g/kg for 5 days (last day of treatment on 02/21) - Pulmonary mechanics Q8H (no respiratory involvement so far) - PT/OT consult - Add on requested for ENS2 panel from [place] - Add ons requested per [facility] [place] lab (Anti-Ro60, Anti-Ro52, dsDNA, RF) - Will defer full body PET at this time, though this can be considered pending clinical course - Consider additional cognitive workup pending clinical course B12 deficiency, suspected pernicious anemia Folate deficiency Concern for malnutrition - Intrinsic factor antibody on 02/16 was positive, but Ynes had been administered B12 injection on 02/15, which can cause false positive IFAb test - Repeat IFAb on 03/01 per outside records - Continue ROD PLACER folic acid - B12 1000 mcg daily for 7 days then weekly for 8 weeks then monthly - high dose thiamine - multivitamin daily - daily weights - calorie count x 72 hours - Measure K+, phos, Mg+ every day - F/u Vitamins B1, B2, B3, B6, B7, A, E, D, chromium, selenium, copper, zinc, and coenzyme Q10 - Nutrition consult, appreciate recommendations Ileus / Pseudo-obstruction, resolving - Continue senna, Miralax, bisacodyl OTHER CONDITIONS Avulsion fracture of left ankle: Boot in place, scheduled acetaminophen, PRN PO hydromorphone 1 mg Q 12 H. 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: ROD PLACER apixaban 2.5 mg BID Hypertension: Propranolol Hypomagnesemia: Monitor level, replete prn Hyponatremia, mild, asymptomatic, likely hypovolemic, improving: Monitor, encourage PO intake Depression / Anxiety / PTSD: ROD PLACER bupropion, olanzapine, prazosin, propranolol GERD: ROD PLACER PPI VTE Prophylaxis On apixaban Discharge Plan Pending clinical course Consults Neuromuscular consult Matilda Melton MD Neurology PGY-2 02/23/24 11:26 Cosigned by Socorro oSto DO at 02/25/2024 18:26 EDT Associated attestation - Socorro Soto DO - 02/25/2024 1826 EDT NEUROLOGY INPATIENT SUPERVISORY NOTE Attestation: I performed or was present during the wells or critical portions of the visit and participated in the management of the patient on the date of service. I agree with the findings and plan of care documented in the medical student and resident's/fellow's note. Socorro Soto DO 02/25/24 18:26 * Gerald Lou RT - 02/23/2024 0130 EDT 0130: Patient unable to do pulmonary mechanics at this time. Patient very difficult to wake and unable to perform (RN stated that she gave her meds that made her drowsy. MD iL notified. Last pulmonary mechanics done at 2019 yesterday evening. 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 Chart reviewed. Attempted evaluation this AM. Upon arrival, customer service manager in room, prepping for drawing blood. OT returned to room after 20 minutes, and customer service manager was still inroom drawing blood. OT will follow up as appropriate and as schedule allows. 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 Repeat EMG completed and results consistent with sensory neuronopathy vs. Severe axonal sensory polyneuropathy. The differential for sensory neuronopathies is as follows: autoimmune (Sjogren???s syndrome, FGFR3 associated neuronopathy, SLE, celiac disease, autoimmune hepatitis, immune checkpoint inhibitors such as pembrolizumab), paraneoplastic (which can present prior to a cancer diagnosis), toxicity (B6 tox icity, match-e-be-nash-she-wish band-based chemotherapy), infectious (rarely triggered by HIV, HTLV- 1, EBV, VZV, leprosy, enterovirus, zika), idiopathic (50%, presumed to be autoimmune). So far no definitive cause has been identified and autoimmune (SSA/SSB) and malignancy (CT C/A/P) work up has been unremarkable. Do suspect that severe nutritional deficiencies including severe B12 deficiency may be contributing to her presentation; plan to expand nutritional work up as below. [facility] inpatient acute [facility] 02/20/24: Minced and Moist, Level 5 and Thin liquids Outpatient [facility] Communication goals: 11/20/22 Wernicke's aphasia due to L ICH Needs total communication strategies - spelling, gesture, circumlocution Goals: matching words that are opposite, creating a daily schedule Stopped IRON POUR[facility] and OT therapy services in 2022, still had cog-communication difficulties, difficultiescompleting household tasks like washing dishes PMH: Past Medical History: Diagnosis Date Cerebral venous sinus thrombosis 02/14/2020 Exercise involving walking flat surfaces History of cranial surgery 07/12/2020 History of general anesthesia Left-sided nontraumatic intracerebral hemorrhage (HCC-CMS) 03/02/2020 Status post decompressive hemicraniectomy Memory disorder Shoulder joint pain right UTI (urinary tract infection) Current Diet: Dysphagia Diet Level: 2 (puree) and Liquids: [place] thick liquids Diet prior to admission: Dys5 diet with Thin liquids. Current Medications: Current Facility-Administered Medications Medication Dose Route Frequency Provider Last Rate Last Admin acetaminophen (TYLENOL) tablet 325 mg 325 mg oral Q4H PRN Simona Cheng DO 325 mg at 02/22/24 0343 acetaminophen (TYLENOL) tablet 650 mg 650 mg oral DAILY Simona Cheng DO 650 mg at 02/21/24 0807 apixaban (ELIQUIS) tablet 2.5 mg 2.5 mg oral BID Simona Cheng DO 2.5 mg at 02/21/242035 bisacodyL (DULCOLAX) suppository 10 mg 10 mg rectal Daily PRN Simona Cheng DO blood thinner patient education booklet 1 Each 1 Each other Once (Without Time Specified) Socorro Soto DO buPROPion (WELLBUTRIN SR) SR tablet 100 mg 100 mg oral BID Simona Cheng DO 100 mg at 02/21/242034 cyanocobalamin (VITAMIN B12) injection 1,000 mcg 1,000 mcg intramuscular DAILY Matilda Melton MD 1,000 mcg at 02/21/24 1012 diphenhydrAMINE (BENADRYL) capsule 25 mg 25 mg oral DAILY Simona Cheng DO 25 mg at 02/20/24 0922 EPINEPHrine (ADRENALIN) injection 0.3 mg 0.3 mg intramuscular PRN Simona Cheng DO folic acid (FOLVITE) tablet 1 mg 1 mg oral DAILY Simona Cheng DO 1 mg at 02/21/24 1008 immune globulin (PRIVIGEN) 10 % injection 30 g 30 g intravenous DAILY Simona Cheng DO 170 mL/hr at 02/21/24 1346 Rate Change at 02/21/24 1346 melatonin tablet 5 mg 5 mg oral QHS Simona Cheng DO 5 mg at 02/21/242035 methocarbamoL (ROBAXIN) tablet 500 mg 500 mg oral BID PRN Simona Cheng DO 500 mg at 02/22/24 0026 methylPREDNISolone sod suc(PF) (SOLU-MEDROL) injection 100 mg 100 mg intravenous PRN Simona Cheng DO OLANZapine (ZYPREXA) tablet 20 mg 20 mg oral QHS Simona Cheng DO 20 mg at 02/21/242035 pantoprazole (PROTONIX) tablet 40 mg 40 mg oral DAILY Simona Cheng DO 40 mg at 02/21/24 1008 polyethylene glycol 3350 (MIRALAX) packet 17 g 17 g oral DAILY Siomna Cheng DO 17 g at 02/20/24 0817 Prazosin (MINIPRESS) capsule 1 mg 1 mg oral QHS Simona Cheng DO 1 mg at 02/21/242035 pregabalin (LYRICA) capsule 100 mg 100 mg oral BID Simona Cheng, 100 mg at 02/21/242035 propRANolol (INDERAL) tablet 10 mg 10 mg oral TID PRN Simona Cheng DO senna (SENOKOT) tablet 1 Tablet 1 Tablet oral QHS Simona Cheng DO 1 Tablet at 02/21/242035 thiamine (VITAMIN B-1) 500 mg in sodium chloride (NS) 0.9 % 50 mL IVPB 500 mg intravenous TID Matilda Melton MD 500 mg at 02/21/242034 Current Status: Cognitive Status: Patient was alert and cooperative during evaluation. Respiratory Status: Respiratory status was judged to be WFL to support oral feeding. Pt was quite fatigued, fell asleep quickly without stimulation Communication: Patient demonstrated semantic paraphasias and anomia, but with some back and forth and with a known context, I was able to ascertain her meaning. Dysarthria and reduced volume also present Clinical Swallow Evaluation: Patient/Family: consented to completing the clinical bedside swallow exam. Oral Peripheral Motor Exam: Face: Face was symmetrical with adequate strength and range of motion. Lips: Reduced strength and range of motion. Tongue: Reduced lingual strength, range of motion and coordination. Velum: Unable to view during the evaluation. Dentition: Missing teeth on top Laryngeal Excursion: Within functional limits with anterior tipping upon palpation. Speech Intelligibility: Speech intelligibility is poor with reduced articulation and vocal intensity. Vocal Quality: Patient presents with a clear vocal quality. Cough: did not assess . Positioning: Seen at bedside for evaluation. Consistencies Tested: was assessed with thin liquids, puree foods, and solid foods. Methods of Delivery: All items were administered by IRON POURER using a spoon, cup and straw. Oral Phase Findings: Patient presents with oral phase deficits characterized by reduced mastication reduced bolus formation Pt spit out the cracker She declined further po trials Pharyngeal Phase: Patient presents with timely swallow response, adequate hyo- laryngeal excursion via palpation. No overt signs/ symptoms of laryngeal penetration/ aspiration were identified. Esophageal Phase: No signs, but history of GERD Compensatory Strategies: Pureed foods decrease work of mastication Patient/Family Education/Training: Patient/Family education and training was completed today including the role of Speech-Language Pathology and results of today's exam/recommendations. - I reviewed some basic communication strategies with patient's nurse, based on last OP note that pt uses total communication strategies Learner: patient Method of Education: Verbal Barriers to Learning/Education: language Patient: was able to verbalize understanding of information Family: was not present Assessment /Clinical Impressions: is a 54 y.o. 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 Repeat EMG completed and results consistent with sensory neuronopathy vs. Severe axonal sensory polyneuropathy. A clinical swallow evaluation was completed secondary to concerns for oropharyngeal dysphagia, and risk of laryngeal penetration/aspiration. currently presents with a mild to moderate oral phase dysphagia as characterized by reduced mastication and coordination in breakdown of chewable s olids. She also exhibits risk factors for compromised airway protective function - reduced volume and breath support. Etiology of dysphagia is past history of left hemispheric ICH, overlaid by current weakness (Sensory ganglionopathy vs. Severe axonal sensory polyneuropathy) A puree, Dys2 diet minimizes her moderateaspiration risks GOALS: Pt will tolerate a Dys 2 and Thin liquid diet without signs of aspiration Plan /Recommendations: Patient will continue to benefit for further IRON POURER intervention in this setting to address dysphagia management and intervention needs. Diet: Dys 2 and Thin liquid Medications: Whole or crushed in applesauce Referrals: Nutrition IRON POURER follow-up: IRON POURER to follow-up early this coming week Discharge Plan: To be determined, although patient has IRON POURER dysphagia and communication needs for inpatient acute rehabilitation. Currently her communication abilities + AAC supports and strategies are not fully optimized. She did not complete IRON POURER services back in 2021 Communication strategies when speaking with patient, as patient has a baseline Aphasia: 1. Use simple, plain language; 2. Augment directions with modeling/gestures, 3. Be clear on topic and provide choices for her to select, when possible. Kassandra Francis CCC-IRON POURER 02/22/2024 8:14 IRON POURER Acute Care Pgr #[id number] * Simona Cheng DO - 02/22/2024 0507 EDT Neurology Progress Note Service Date: 02/22/2024 Admit Date: 02/20/2024 0:25 Reason for Admission: 54 y.o. female admitted for evaluation of diffuse extremity weakness and sensory loss. 24 Hour Events: NAEO Subjective Ms. White says she is sleepy today but is feeling ok. She has no complaints. We asked about her diet, and she says she does not typically eat vegetables at home. Review of Systems A ten point review of systems was performed and was negative except for pertinent positives noted in the HPI Objective Vital Signs Temp: [36.2 ??C (97.2 ??F)-36.9 ??C (98.4 ??F)] , Heart Rate: [90 BPM-109 BPM] , Resp: [16-20] , BP: (56-151)/(32-91) , SpO2: [95 %-98 %] Neurological Exam Mental status: The patient is AxOx1 to person only. Follows simple commands. Speech: Moderate dysarthria present. Cranial nerves: CN II: Visual fam not tested due to limited patient ability. Pupils are 2 mm and not reactive tolight. CN III, IV, : EOMMs [previously] intact with no nystagmus, gaze palsy or preference. No ptosis. CN V: Facial sensation is intact to light touch in all 3 divisions bilaterally. Normal masseter bulk. CN VII: Face is symmetric with normal eye closure and drooping smile. Buries eyelashes symmetrically. CN VIII: Hearing is normal to rubbing fingers / grossly intact. CN XI: shoulder shrug are symmetric with full strength. Motor: Arms raise antigravity. Muscle bulk is diminished and tone is normal. No tremors or abnormalmovements noted during exam. Per previous exam: Neck flexion 4/5, neck extension 5-/5. Upper Extremity Strength Shoulder abd (C5) Elbow flexion (C5,6) Elbow ext (C7) Category Manager (T1) Right 3/5 4-/5 4-/5 4/5 Left 3/5 4-/5 4-/5 4/5 Lower Extremity Strength Hip flexion (L2,3) Knee extension (L3,4) Ankle DF (L4,5) Knee flexion (L5,S1) Ankle PF (S1,2) Right 3/5 3/5 3/5 3/5 4/5 Left untested due to fracture. Per previous exam: Reflexes DTR Right Left Biceps (C5-6) 0 0 BR (C5-6) 0 0 Triceps (C7-8) 0 0 Patellar (L3-4) 0 0 Achilles (S1-2) 0 - Ankle Clonus absent - Plantar downgoing - LLE untested due to fracture. Sensory: Light touch: diminished in bilateral legs and lower arms On 02/19: Pin prick: Sensation intact in upper arms bilaterally, absent bilaterally in LE Temperature: sensation to cold intact at the level of elbow and higher in UE, and intact at the level of the proximal lower right leg Coordination, Gait: Not tested due to limited patient ability. Labs Reviewed CBC: Recent Labs 02/20/24 0736 02/21/24 0650 WBC 2.37* 3.10* HGB 11.1* 11.4* HCT 30.9* 32.8* MCV 97 99* PLT 169 200 BMP: Recent Labs 02/19/24 0611 02/20/24 0736 02/21/24 0650 NA 132* 135* 134* K 4.2 4.3 4.3 CL 108 105 104 CO2 25 20* 21* BUN 11 11 10 CREATININE 0.64 0.60 0.70 MG 1.6* 1.6* 1.7 CALCIUM 8.9 9.1 9.1 SERGLU 98 100* [address] ABDOMEN PELVIS W CONTRAST Result Date: 02/18/2024 1. No acute intra-abdominal finding. 2. No occult intra-abdominal malignancy. THIS DOCUMENT HAS BEEN ELECTRONICALLY SIGNED BY RAQUEL FELIZ MD FOR ANY QUESTIONS OR CONCERNS REGARDING THIS REPORT PLEASE CALL [facility] AT [phone] CT CHEST W CONTRAST Result Date: 02/18/2024 No intrathoracic occult malignancy. COMMENTS: Consistent with the [employer] [employer]'s Incidental Findings Committee white paper (J Am Adelfo Radiol 2015): In patients aged 35 years and older with an incidental thyroid nodule equal to or greater than 1.[address], MRI or extrathyroidal US, further evaluation with dedicated thyroid US is recommended for patients with normal life expectancy and without comorbidities. For smaller nodules without suspicious features, no further evaluation or follow up is recommended. THIS DOCUMENT HAS BEEN ELECTRONICALLY SIGNED BY RAQUEL FELIZ MD FOR ANY QUESTIONS OR CONCERNS REGARDING THIS REPORT PLEASE CALL [facility] AT [phone] MR CERVICAL SPINE WO CONTRAST Addendum Date: 02/14/2024 THIS REPORT CONTAINS FINDINGS THAT MAY BE CRITICAL TO PATIENT CARE. The findings were verbally communicated via telephone conference with Dr. Queen at 7:54 PM EDT on 02/14/2024. The findings were acknowledged and understood. THIS DOCUMENT HAS BEEN ELECTRONICALLY SIGNED BY LULU PATEL MD FOR ANY QUESTIONS OR CONCERNS REGARDING THIS REPORT PLEASE CALL [facility] AT [phone] Result Date: 02/14/2024 Unremarkable cervical spine MRI. THIS DOCUMENT HAS BEEN ELECTRONICALLY SIGNED BY LULU PATEL MD FOR ANY QUESTIONS OR CONCERNS REGARDING THIS REPORT PLEASE CALL [facility] AT [phone] MR HEAD WO CONTRAST Addendum Date: 02/14/2024 THIS REPORT CONTAINS FINDINGS THAT MAY BE CRITICAL TO PATIENT CARE. The findings were verbally communicated via telephone conference with KWABENA KEVIN at 5:58 PM EDT on 02/14/2024. The findings were acknowledged and understood. THIS DOCUMENT HAS BEEN ELECTRONICALLY SIGNED BY XUAN JOHNSON DO FORANY QUESTIONS OR CONCERNS REGARDING THIS REPORT PLEASE CALL [facility] AT [phone] Result Date: 02/14/2024 No acute intracranial abnormality. Left temporal and parietal chronic postsurgical changes. 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 Repeat EMG completed and results consistent with sensory neuronopathy vs. Severe axonal sensory polyneuropathy. The differential for sensory neuronopathies is as follows: autoimmune (Sjogren???s syndrome, FGFR3 associated neuronopathy, SLE, celiac disease, autoimmune hepatitis, immune checkpoint inhibitors such as pembrolizumab), paraneoplastic (which can present prior to a cancer diagnosis), toxicity (B6 tox icity, match-e-be-nash-she-wish band-based chemotherapy), infectious (rarely triggered by HIV, HTLV- 1, EBV, VZV, leprosy, enterovirus, zika), idiopathic (50%, presumed to be autoimmune). So far no definitive cause has been identified and autoimmune (SSA/SSB) and malignancy (CT C/A/P) work up has been unremarkable. Do suspect that severe nutritional deficiencies including severe B12 deficiency may be contributing to her presentation; plan to expand nutritional work up as below. Plan Sensory ganglionopathy vs. Severe axonal sensory polyneuropathy - IVIG 0.4 g/kg for 5 days (last day of treatment on 02/21) - Pulmonary mechanics Q8H (no respiratory involvement so far) - PT/OT consult - Add on requested for ENS2 panel from [place] - Add ons requested per [facility] [place] lab (Anti-Ro60, Anti-Ro52, dsDNA, RF) - Will defer full body PET at this time, though this can be considered pending clinical course - Consider additional cognitive workup pending clinical course B12 deficiency, suspected pernicious anemia Folate deficiency Concern for malnutrition - Intrinsic factor antibody on 02/16 was positive, but Ynes had been administered B12 injection on 02/15, which can cause false positive IFAb test - Repeat IFAb on 03/01 per outside records - Continue ROD PLACER folic acid - B12 1000 mcg daily for 7 days then weekly for 8 weeks then monthly - high dose thiamine - Measure K+, phos, Mg+ every day - F/u Vitamins B1, B2, B3, B6, B7, A, E, D, chromium, selenium, copper, zinc, and coenzyme Q10 - Nutrition consult Ileus / Pseudo-obstruction, resolving - Continue senna, Miralax, bisacodyl OTHER CONDITIONS Avulsion fracture of left ankle: Boot in place, scheduled acetaminophen, PRN PO hydromorphone 1 mg Q 12 H. 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: ROD PLACER apixaban 2.5 mg BID Hypertension: Propranolol Hypomagnesemia: Monitor level, replete prn Hyponatremia, mild, asymptomatic, likely hypovolemic, improving: Monitor, encourage PO intake Depression / Anxiety / PTSD: ROD PLACER bupropion, olanzapine, prazosin, propranolol GERD: ROD PLACER PPI VTE Prophylaxis On apixaban Discharge Plan Pending clinical course Consults Neuromuscular consult Simona Cheng DO Neurology PGY-2 Pgr [id number] / [id number] after 7 PM 02/22/24 5:08 Cosigned by Socorro Soto DO at 02/25/2024 18:27 EDT Associated attestation - Socorro Soto DO - 02/25/2024 1157 EDT NEUROLOGY INPATIENT SUPERVISORY NOTE Attestation: I performed or was present during the wells or critical portions of the visit and participated in the management of the patient on the date of service. I agree with the findings and plan of care documented in the medical student and resident's/fellow's note. Socorro Soto, DO 02/25/24 18:27 * Gayatri Tay, RT - 02/22/2024 0332 EDT Respiratory Progress Note Indications for Respiratory therapy: pulmonary mechanics Data Vitals: Heart Rate: 100 BPM, Resp: 20, SpO2: 98 % FIO2/O2 Device: , , O2 Device: None, RT Orders: pulmonary mechanics Action/Events Respiratory events; mechanics for NIF - 20 and FVC 1.38. Patient in no respiratory distress, no accessory muscle use ordesaturations at this time. GAYATRI TAY, RT 02/22/24 * Rae Byrne SLP - 02/21/2024 1617 EDT Speech-Language Pathology Contact Note IRON POURER consult received for: Clinical Bedside Swallow Evaluation. Speech Language Pathology Department is aware of request. Thank you for this consult, we will initiate evaluation and intervention as appropriate. If you have specific questions or concerns, please feel free to page the instructional designer IRON POURER on pager #[phone] (Saturday- Saturday 8:00 AM- 4:30 PM). ERIKA GUTHRIE 02/21/2024 16:17 * Matilda Melton MD - 02/21/2024 1346 EDT Neurology Progress Note Service Date: 02/21/2024 Admit Date: 02/20/2024 0:25 Reason for Admission: 54 y.o. female admitted for evaluation of diffuse extremity weakness and sensory loss. 24 Hour Events: Hypotensive episode Subjective History mostly obtained from Ken, her brother. She slept okay, but is mostly feeling frustrated with all the tests being run. She still cannot feel much of her hands or legs. Review of Systems A ten point review of systems was performed and was negative except for pertinent positives noted in the HPI Objective Vital Signs Temp: [36.2 ??C (97.2 ??F)-36.9 ??C (98.4 ??F)] , Heart Rate: [92 BPM-109 BPM] , Resp: [16-20] , BP: (56-148)/(32-95) , SpO2: [94 %-97 %] Neurological Exam Mental status: The patient is AxOx1 to person only. Follows simple commands. Speech: Moderate dysarthria present. Cranial nerves: CN II: Visual fam not tested due to limited patient ability. Pupils are 2 mm and not reactive tolight. CN III, IV, : EOMMs [previously] intact with no nystagmus, gaze palsy or preference. No ptosis. CN V: Facial sensation is intact to light touch in all 3 divisions bilaterally. Normal masseter bulk. CN VII: Face is symmetric with normal eye closure and drooping smile. Buries eyelashes symmetrically. CN VIII: Hearing is normal to rubbing fingers / grossly intact. CN XI: shoulder shrug are symmetric with full strength. Motor: Arms raise antigravity. Muscle bulk and tone are normal. No tremors or abnormal movements noted during exam. Neck flexion 4/5, neck extension 5-/5. Upper Extremity Strength Shoulder abd (C5) Elbow flexion (C5,6) Elbow ext (C7) Category Manager (T1) Right 3/5 4-/5 4-/5 4/5 Left 3/5 4-/5 4-/5 4/5 Lower Extremity Strength Hip flexion (L2,3) Knee extension (L3,4) Ankle DF (L4,5) Knee flexion (L5,S1) Ankle PF (S1,2) Right 3/5 3/5 3/5 3/5 4/5 Left untested due to fracture. Reflexes DTR Right Left Biceps (C5-6) 0 0 BR (C5-6) 0 0 Triceps (C7-8) 0 0 Patellar (L3-4) 0 0 Achilles (S1-2) 0 - Ankle Clonus absent - Plantar downgoing - LLE untested due to fracture. Sensory: Light touch: diminished in bilateral legs and lower arms On 02/19: Pin prick: Sensation intact in upper arms bilaterally, absent bilaterally in LE Temperature: sensation to cold intact at the level of elbow and higher in UE, and intact at the level of the proximal lower right leg Coordination, Gait: Not tested due to limited patient ability. Labs Reviewed CBC: Recent Labs 02/20/24 0736 02/21/24 0650 WBC 2.37* 3.10* HGB 11.1* 11.4* HCT 30.9* 32.8* MCV 97 99* PLT 169 200 BMP: Recent Labs 02/19/24 0611 02/20/24 0736 02/21/24 0650 NA 132* 135* 134* K 4.2 4.3 4.3 CL 108 105 104 CO2 25 20* 21* BUN 11 11 10 CREATININE 0.64 0.60 0.70 MG 1.6* 1.6* 1.7 CALCIUM 8.9 9.1 9.1 SERGLU 98 100* [address] ABDOMEN PELVIS W CONTRAST Result Date: 02/18/2024 1. No acute intra-abdominal finding. 2. No occult intra-abdominal malignancy. THIS DOCUMENT HAS BEEN ELECTRONICALLY SIGNED BY RAQUEL FELIZ MD FOR ANY QUESTIONS OR CONCERNS REGARDING THIS REPORT PLEASE CALL [facility] AT [phone] CT CHEST W CONTRAST Result Date: 02/18/2024 No intrathoracic occult malignancy. COMMENTS: Consistent with the [place] [employer]'s Incidental Findings Committee white paper (J Am Adelfo Radiol 2015): In patients aged 35 years and older with an incidental thyroid nodule equal to or greater than 1.[address], MRI or extrathyroidal US, further evaluation with dedicated thyroid US is recommended for patients with normal life expectancy and without comorbidities. For smaller nodules without suspicious features, no further evaluation or follow up is recommended. THIS DOCUMENT HAS BEEN ELECTRONICALLY SIGNED BY RAQUEL FELIZ MD FOR ANY QUESTIONS OR CONCERNS REGARDING THIS REPORT PLEASE CALL [facility] AT [phone] MR CERVICAL SPINE WO CONTRAST Addendum Date: 02/14/2024 THIS REPORT CONTAINS FINDINGS THAT MAY BE CRITICAL TO PATIENT CARE. The findings were verbally communicated via telephone conference with Dr. Queen at 7:54 PM EDT on 02/14/2024. The findings were acknowledged and understood. THIS DOCUMENT HAS BEEN ELECTRONICALLY SIGNED BY LULU PATEL MD FOR ANY QUESTIONS OR CONCERNS REGARDING THIS REPORT PLEASE CALL [facility] AT [phone] Result Date: 02/14/2024 Unremarkable cervical spine MRI. THIS DOCUMENT HAS BEEN ELECTRONICALLY SIGNED BY LULU PATEL MD FOR ANY QUESTIONS OR CONCERNS REGARDING THIS REPORT PLEASE CALL [facility] AT [phone] MR HEAD WO CONTRAST Addendum Date: 02/14/2024 THIS REPORT CONTAINS FINDINGS THAT MAY BE CRITICAL TO PATIENT CARE. The findings were verbally communicated via telephone conference with KWAEBNA KEVIN at 5:58 PM EDT on 02/14/2024. The findings were acknowledged and understood. THIS DOCUMENT HAS BEEN ELECTRONICALLY SIGNED BY XUAN JOHNSON DO FORANY QUESTIONS OR CONCERNS REGARDING THIS REPORT PLEASE CALL [facility] AT [phone] Result Date: 02/14/2024 No acute intracranial abnormality. Left temporal and parietal chronic postsurgical changes. 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 Repeat EMG completed and results consistent with sensory neuronopathy vs. Severe axonal sensory polyneuropathy. The differential for sensory neuronopathies is as follows: autoimmune (Sjogren???s syndrome, FGFR3 associated neuronopathy, SLE, celiac disease, autoimmune hepatitis, immune checkpoint inhibitors such as pembrolizumab), paraneoplastic (which can present prior to a cancer diagnosis), toxicity (B6 tox icity, match-e-be-nash-she-wish band-based chemotherapy), infectious (rarely triggered by HIV, HTLV- 1, EBV, VZV, leprosy, enterovirus, zika), idiopathic (50%, presumed to be autoimmune). So far no definitive cause has been identified and autoimmune (SSA/SSB) and malignancy (CT C/A/P) work up has been unremarkable. Do suspect that severe nutritional deficiencies including severe B12 deficiency may be contributing to her presentation; plan to expand nutritional work up as below. Plan Sensory ganglionopathy vs. Severe axonal sensory polyneuropathy - IVIG 0.4 g/kg for 5 days (last day of treatment on 02/21) - Pulmonary mechanics Q8H (no respiratory involvement so far) - PT/OT consult - Add on requested for ENS2 panel from [place] - Add ons requested per [facility] [place] lab (Anti-Ro60, Anti-Ro52, dsDNA, RF) - Will defer full body PET at this time, though this can be considered pending clinical course - Consider additional cognitive workup pending clinical course B12 deficiency, suspected pernicious anemia Folate deficiency Concern for malnutrition - Intrinsic factor antibody on 02/16 was positive, but Ynes had been administered B12 injection on 02/15, which can cause false positive IFAb test - Repeat IFAb on 03/01 per outside records - Continue ROD PLACER folic acid - B12 1000 mcg daily for 7 days then weekly for 8 weeks then monthly - high dose thiamine - Measure K+, phos, Mg+ every day - F/u Vitamins B1, B2, B3, B6, B7, A, E, D, chromium, selenium, copper, zinc, and coenzyme Q10 - Consult nutrition Ileus / Pseudo-obstruction, resolving - Continue senna, Miralax, bisacodyl OTHER CONDITIONS Avulsion fracture of left ankle: Boot in place, scheduled acetaminophen, PRN PO hydromorphone 1 mg Q 12 H. 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 I have edited the medical student note as appropriate. Matilda Melton MD Neurology PGY-2 02/21/24 17:30 Cosigned by Socorro Soto DO at 02/25/2024 18:24 EDT Associated attestation - JoseerennigelSocorro menesesDO - 02/25/2024 1824 EDT NEUROLOGY INPATIENT SUPERVISORY NOTE Attestation: I performed or was present during the wells or critical portions of the visit and participated in the management of the patient on the date of service. I agree with the findings and plan of care documented in the medical student and resident's/fellow's note. Socorro Soto DO 02/25/24 18:24 * Milli Maradiaga RN - 02/21/2024 0934 EDT Rapid Response Team Nursing Note (SBAR) Team Times: Call Type: TIME RECORDER Sepsis Alert: Yes Call Time: 904 Call Date: 02/21/24 Call Originator: Nurse MANSFIELD Arrival at Bedside: 906 Team Completion Time: 929 DONAL Completion Time: 929 Code Status: Full Initial Vitals: BP: 102/75 BP MAP: 84 mm Hg Heart Rate: 105 BPM SpO2: 95 % Neurological Assessment: Altered Mental Status: Yes (increased lethargy,baseline aphasia) FAST Exam: Negative Cardiovascular Assessment: Chest Pain: No Cardiac Rhythm: Sinus EKG Status: Yes Respiratory Assessment: O2 Device: None GI/ Assessment: Emesis: No Urinary Status: Reyes;Draining Patient Status: Disposition: Not Transferred Testing: X-Ray Team Members: DONAL (Name): Tuan Mello Hospitalist (Name): Batsheva- Neuro Resident ANC (Name): Chilo Respiratory (Name): Edmar Patient Support (Name): Present Primary RN (Name): Carmen Call debriefed with: Nurse;Doctor Additional Detail: TIME RECORDER for hypotension with pressures as low as 50 systolic with increased lethargy. Pt admitted on 02/19 for GBS and sensory neuropathy- receiving IVIG infusions. On arrival primary RN hanging 1L bolus, BP reassessed and noted to have improved to 70s systolic prior to fluids being started with a MAP greater than 65. Neuro resident Dr. Herman at bedside. EKG obtained showing ST. Pt drowsy but arousing to voice, hx of aphasia per Carmen RN. Pt shaking head no- denying CP, SOB or pain. BP furtherimproved to 102/75. CXR obtained. Pt more alert, asking for water. Plan to hold IVIG infusion at this time with plan to start at 12pm if patient BP continue to infuse. to order mIVF given poor PO i ntake reports by primary RN. * Estela Herman MD - 02/21/2024 0933 EDT Rapid Response - Physician Note Rapid Response Team called to the bedside at 0900 on 02/21/2024 for hypotension. Subjective: 54 y.o. 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 Rapid response called for hypotensive event. SBP ~65. White count stable. Hgb Stable. No chest pain. Oxygenating on room air. Objective: BP 102/75 Temp 36.6 ??C (97.9 ??F) (Tympanic) Resp 20 Ht 170.2 cm (67.01) Wt 81kg (178 lb 9.2 oz) SpO2 95% BMI 27.96 kg/m?? General: chronically ill appearing, pale Neuro: Alert and oriented (following fluids), expressive aphasia at baseline, right hemibody paresis. Data Reviewed: CBC: Recent Labs 02/20/24 0736 02/21/24 0650 WBC 2.37* 3.10* RBC 3.18* 3.32* HGB 11.1* 11.4* HCT 30.9* 32.8* MCV 97 99* MCH 34.9* 34.3* MCHC 35.9 34.8 PLT 169 200 BMP: Recent Labs 02/19/24 0611 02/20/24 0736 02/21/24 0650 NA 132* 135* 134* K 4.2 4.3 4.3 CL 108 105 104 CO2 25 20* 21* BUN 11 11 10 CREATININE 0.64 0.60 0.70 CALCIUM 8.9 9.1 9.1 MG 1.6* 1.6* 1.7 Assessment: 54 y.o. 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 Rapid response called today for hypotensive event. She was afebrile. Sinus tachycardia on EKG. Symptomatically improved with IVF. Suspect poor oral intake vs autonomic involvement. Will continue to monitor. Plan: -Bolus of IVF wide open -Trendelenburg positioning -Circulate blood pressure every 3 minutes until normotensive -EKG obtained, with sinus tachycardia -CXR portable -Daily labs reviewed in [facility], Hgb and WBC stable Reviewed and confirmed Code Status is full code. Estela Herman MD 02/21/2024 9:35 * Dali Miles, PT - 02/21/2024 0932 EDT [facility] Acute Therapy [facility] Contact Note Date of Service: 02/21/2024 Physical therapy order received. Chart reviewed. Upon entry to patients room, patient was currently undergoing a rapid response for hypotension. PT will defer at evaluation at this time. Will follow up in 1-3 days Dali Miles PT 02/21/2024 9:32 * Sandra Preston II, RT - 02/21/2024 0910 EDT Pulmonary mechanics not done this morning as patient is hypotensive and Rapid Response Team called. * Baldo Zimmerman, RT - 02/21/2024 0121 EDT Respiratory Progress Note Indications for Respiratory therapy: Pulmonary Mechanics Data Vitals: Heart Rate: 97 BPM, Resp: 16, SpO2: 96 % FIO2/O2 Device: , , O2 Device: None, RT Orders: NIF q8hr FVC q8 hr Action/Events Respiratory events; Patient very somnolent and difficult to wake on 0000 pulmonary mechanics. RN called to bedside for neuro assessment, of which patient slowly became alert enough for mechanics for NIF - 20 and FVC 1.29. Patient in no respiratory distress, no accessory muscle use or desaturations at this time. BALDO ZIMMERMAN, RT 02/21/24 * Majo Ricks, - 02/20/2024 2150 EDT Respiratory Progress Note 1721: NIF -35 FVC 1.90 L Patient required extensive coaching. 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 The discharge plan was ABDIAZIZ and patient appears to have had a bed offer at [facility]. However, [facility] for treatment of Guillain Crossett Syndrome and is planned for IVIg through 02/22/24. Please see Initial Case Management Assessment from [facility] by Sridevi Hyatt on 11/17. Unclear whether the plan is return to [facility] upon completion of the IVIg or whether patient will discharge directly to [facility]. CM will continue to follow. Simi Correa, [facility] manager of financial reporting Pager [phone] Initial Case Management/Social Work Assessment and Discharge Plan/Readmission Risk Assessment REASON FOR ADMISSION: Acute left ankle pain Patient understands reason for admission: Yes (Guardian at bedside) PATIENT INFO VERIFIED: PCP, Address, Contact Info Type of housing (single family, condo, apartment, half-way, single room occupancy, [facility] funded hotel room, group senior living) - apartment Who does the patient live with? alone Does the patient have access to their own bedroom/bathroom/kitchen - or is it shared with others? own Name of housing complex (ex [employer] [facility], [facility], etc)- [facility] Housing Authority/Managing Organization - [address] Community Care Providers (dependency case manager, [facility] nurse, etc) name and contact information- [facility]- Edith Reynolds LIVING ARRANGEMENTS AND ACCESSIBILITY ISSUES: Living Arrangements: Alone, Family members, Apartment Levels: 1 Stairs to enter: 0 Handicap access: (Fully accessible handicap apartment) Bathroom located on bedroom level?: Yes What in home social supports are available to the patient? Family member(s), Therapist, Friends / neighbors Is 17/06 care available? No ADVANCED DIRECTIVES, POA &/or COLST IN PLACE: Healthcare Directive: Yes, patient has advance directive for healthcare treatment Type of Healthcare Directive: Other (Comment) (COLST) Copy in Chart: Yes, new copy in paper chart @ [facility] DIRECTIVES FOR FINANCES: TRANSPORTATION: Transportation: (TBD) CULTURAL, METHODIST and/or LANGUAGE factors affecting health care/discharge planning: Insurance Information: Medical Insurance: Yes Type of insurance: Medicare Medicare type: A, B Referred to patient financial services: Yes (Referred to PFS to check on status of Medicaid application) Nutrition: DISCHARGE RISK ASSESSMENT: Lives at home with limited or no community support;History of falls;Requires assistance with ADLs/IADLs;Cognitive impairment;Repeat hospitalizations/ED visits Total # selected above: Score > or equal to 5: This patient is HIGH RISK for re-hospitalization Tentative plan to address the risk of re-hospitalization for those at HIGH MODERATE RISK: Bring risk factors to attention of team to be addressed;Early inpatient rehab therapy or other consultation(s);Refer to SNF RAPT TOOL: Age: 50-65 Gender: Female Ambulation distance: Housebound most of the time Gait device: Crutch/Walker Community Services: Two or more times a week Will you live with someone who will care for you?: No RAPT Tool Score: 3 SBIRT: FUNCTIONAL STATUS: Activities patient requires assistance: Bathing, Food preparation/shopping, Grooming, Taking Medications, In/Out of Bed, Dressing, Toileting, Mobility Assistive Devices: Walker, Wheelchair, Grab bars, Shower chair Walker type: Front wheel COMMUNITY RESOURCES/SUPPORTS: Primary Care Provider: Romario Hairston PCP Verified: Specialists: Type of Home Health Services: Home PT/OT DME Provider: Pharmacy: [id number] - [place], [place] - [address] AT [facility] [address] [facility] [id number] [facility] ([facility] - [place], [place] [address] [facility] [address] [facility] [id number] [id number] - [place] [address] [facility] [address] [facility] [address] Home Health: [facility] Other: [facility], Mental Health Services (Claus Meadows/[facility] therapist via zoom) POST HOSPITAL TRANSITION PLAN: Ynes is a 54 yr old woman who arrived to the ED today with increasing falls at home and weakness. 2nd ED visit since 01/27, with worsening ability to perform ADL's in the past 4 weeks, but previously was able to get in and out of the shower, and stand and pivot usingher wheelchair. Today pt has a small new avulsion fracture, was evaluated by PT. A shoe was placed,however pt was unable to bear any weight and collapsed back onto bed. PT resides alone in her firstcaoor handicap accessible apt. Has a wheelchair, walker and shower chair, grab bars. She receives PT/OT from [facility] currently. Her sister Stacey Messina visits every 3-4 days and provides meals. Pt is enrolled in [facility] -Edith Reynolds is the [facility] contact, and pt has a therapist via zoom Claus Meadows. Pt has a history of previous rehab stay at [facility] where she had a 3 month stay. Currently pt is in the process of re-application for medicaid, after recently transitioning to Medicare A/B as her primary insurance. Sister/Lucille/guardian advised they applied over a month ago but still haven't not heard back. Spoke with ALEXA/Sabrina who advised this cannot be expedited, that it will take often the full 45 days or more to get a response, and to encourage sister to call medicaid for an update. Explained observation status to pt/sister and that traditional Medicare does not cover in this instance. CM willre- enforce the importance to sister to call medicaid to explore status of application. If rehab is needed, advised state-wide referrals will be necessary. Pt and sister aware PT will revisit tomorrowand continue to assess and determine if recommendation will still be rehab. Family advised they have no ability to support 17/06 care at this time. Confirmed all demographics/PCP and pharmacy as correct. COLST on file from 2021. Sister Lucille sweeney. SRIDEVI EDMAR 02/04/2024 15:48 * Joy Bonner, RT - 02/20/2024 0523 EDT Respiratory Consult/Progress Note Indications for Respiratory therapy: Initial consult Data Vitals: Heart Rate: 80 BPM, Resp: 16, SpO2: 94 % FIO2/O2 Device: , , O2 Device: None, RT Orders: Q8 Pulmonary mechanics Protocol Scoring: Bronchodilator/Inhalation Therapy Frequency Bronchodilator - Clinical Indications: No clinical indications Breath Sounds: Any abnormal BS decreased Response: No change / no treatment Pulse: <100 Resp Rate: <18 SOB: None Total Score: 1 Frequency Based On Total Score: 0-4 = PRN 5-7 = QID 8-10 = Q4H 11-12 = Q2H Airway Clearance Therapy Frequency Airway Clearance - Clinical Indications: No clinical indications Breath Sounds: Clear / diminished Sputum: Small (tsp) / None Consistency: Thin Cough Effort: Strong/ non-productive Color: Clear / white Total Score: 0 Frequency Based On Total Score: 0-3 = PRN 4-6 = QID and PRN 7-9 = Q4H and PRN 10-11 = Q2H and PRN Hyperinflation Therapy Frequency Hyperinflation - Clinical Indications: Prevent atelectasis Breath Sounds: Clear Surgery: No X-Ray / Atelectasis: No O2 Requirements: O2 at baseline Mobility Status: Mobile / at baseline Total: 0 Frequency Based On Total Score: 0-3 = PRN 4-6 = QID and PRN 7-9 = Q4H and PRN 10-12 = Q2H and PRN Action/Events Pt admitted to floors overnight. Upon evaluation she was sleeping comfortably on room air. NIF/FVC machine at bedside. Will start pulmonary mechanics in the morning. RT CARMEN 02/20/24 documented in this encounter H&P Notes * Matilda Melton MD - 02/20/2024 0043 EDT Neurology History and Physical Service Date: 02/20/2024 Admit Date: 02/20/24 Primary Care Provider: Romario Hairston Code Status: Full Code Chief Complaint: Weakness HPI Ynes White is a 54 y.o. 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 The patient is now transferred here to [facility] for Guillain-Aguila?? and neuromuscular consultation. History gathered from chart review. Patient was admitted to [facility] after a fall and a left ankle sprain with a small avulsion fracture. 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 This is in the setting of symptomatic orthostatic hypotension with dizziness, fluctuations in blood pressure, ileus. Patient has been having an increase in falls for the past 3 weeks with pain in her legs and diffuseweakness. A couple of days ago she developed arm weakness. Gerry 3 weeks ago she was able to walk around in the grocery store on her own with assistance from a rolling walker. Her weakness had progressed to the point where she needed assistance with eating. The patient was endorsing numbness in thearms and legs. She had an LP performed at [facility] with CSF protein over 250 without nucleated cells seen. Workup also included hepatitis B, hepatitis C, HIV, VZV, HSV, enterovirus, West Nile virus, SSA/SSB which were all negative. The patient was started on IVIG on 02/17 for 5-day course. On arrival, the patient's vital signs arestable. Patient was unwilling to participate in subjective portion of information gathering due to somnolence. Review of Systems A ten point review of systems was performed and was negative except for pertinent positives noted in the HPI Allergies Allergen Reactions Citalopram Other reaction(s): increased anxiety Duloxetine Other reaction(s): increased anxiety Gabapentin Levetiracetam Anxiety Trazodone Zolpidem Other reaction(s): sleep walking with over 5 mg Objective Vitals Temp: [36.3 ??C (97.4 ??F)-36.9 ??C (98.5 ??F)] , Heart Rate: [87 BPM-90 BPM] , Pulse: --, Resp: [16-21] , BP: (122-159)/(79-96) , SpO2: [65 %-97 %] , Numeric Pain Level (Scale 1-10): 4 Weight: There is no height or weight on file to calculate BMI. NEUROLOGIC EXAM Mental Status & Language Somnolent but awakens to repeated prompting with voice. Not answering questions initially but then verbalizes to examiner Stop touching me. Leave me alone and then falls back to sleep. Cranial Nerves Pupils equal and reactive EOMI No gaze deviation No obvious facial asymmetry Tongue protrudes midline Mild to moderate dysarthria Motor Both upper extremities fall and hit the bed when held up. Patient does not seem to make effort to hold upper extremities against gravity. Some withdrawal in bilateral lower extremities to noxious stimulus Reflexes DTR Right Left Biceps (C5-6) 0 0 BR (C5-6) 0 0 Patellar (L3-4) 0 0 Achilles (S1-2) 0 Unable to test Plantar mute Unable to test No ankle clonus on left ankle Sensation Grimaces to pinch in both upper extremities Does not grimace or respond to pinch in bilateral calves Internal rotation of both lower extremities to pinch in medial thigh Cerebellar/Movement Function Unable to test 2/2 patient cooperation Gait Deferred Labs I have personally reviewed Recent Labs 02/19/24 0611 NA 132* K 4.2 CL 108 CO2 25 BUN 11 CREATININE 0.64 CALCIUM 8.9 MG 1.6* Imaging CT ABDOMEN PELVIS W CONTRAST Result Date: 02/18/2024 1. No acute intra-abdominal finding. 2. No occult intra-abdominal malignancy. THIS DOCUMENT HAS BEEN ELECTRONICALLY SIGNED BY RAQUEL FELIZ MD FOR ANY QUESTIONS OR CONCERNS REGARDING THIS REPORT PLEASE CALL [facility] AT [phone] CT CHEST W CONTRAST Result Date: 02/18/2024 No intrathoracic occult malignancy. COMMENTS: Consistent with the [employer]'s Incidental Findings Committee white paper (J Am Adelfo Radiol 2015): In patients aged 35 years and older with an incidental thyroid nodule equal to or greater than 1.[address], MRI or extrathyroidal US, further evaluation with dedicated thyroid US is recommended for patients with normal life expectancy and without comorbidities. For smaller nodules without suspicious features, no further evaluation or follow up is recommended. THIS DOCUMENT HAS BEEN ELECTRONICALLY SIGNED BY RAQUEL FELIZ MD FOR ANY QUESTIONS OR CONCERNS REGARDING THIS REPORT PLEASE CALL [facility] AT [phone] MR CERVICAL SPINE WO CONTRAST Addendum Date: 02/14/2024 THIS REPORT CONTAINS FINDINGS THAT MAY BE CRITICAL TO PATIENT CARE. The findings were verbally communicated via telephone conference with Dr. Queen at 7:54 PM EDT on 02/14/2024. The findings were acknowledged and understood. THIS DOCUMENT HAS BEEN ELECTRONICALLY SIGNED BY LULU PATEL MD FOR ANY QUESTIONS OR CONCERNS REGARDING THIS REPORT PLEASE CALL [facility] AT [phone] Result Date: 02/14/2024 Unremarkable cervical spine MRI. THIS DOCUMENT HAS BEEN ELECTRONICALLY SIGNED BY LULU PATEL MD FOR ANY QUESTIONS OR CONCERNS REGARDING THIS REPORT PLEASE CALL [facility] AT [phone] MR HEAD WO CONTRAST Addendum Date: 02/14/2024 THIS REPORT CONTAINS FINDINGS THAT MAY BE CRITICAL TO PATIENT CARE. The findings were verbally communicated via telephone conference with KWABENA KEVIN at 5:58 PM EDT on 02/14/2024. The findings were acknowledged and understood. THIS DOCUMENT HAS BEEN ELECTRONICALLY SIGNED BY XUAN JOHNSON DO FORANY QUESTIONS OR CONCERNS REGARDING THIS REPORT PLEASE CALL [facility] AT [phone] Result Date: 02/14/2024 No acute intracranial abnormality. Left temporal and parietal chronic postsurgical changes. THIS DOCUMENT HAS BEEN ELECTRONICALLY SIGNED BY XUAN JOHNSON DO FOR ANY QUESTIONS OR CONCERNS REGARDING THIS REPORT PLEASE CALL [facility] AT [phone] XR ABDOMEN 1 VIEW Result Date: 02/11/2024 Persistent air-filled bowel loops, predominantly colonic loops. Degree of distention is slightly decreased compared to prior. No evidence of free air on the acquired views. [id number] XR ABDOMEN 2 VIEWS Result Date: 02/10/2024 Air-filled, distended colonic loops, slight interval increase in degree of distention. No free intraperitoneal air evident. [id number] CT ABDOMEN PELVIS W CONTRAST Result Date: 02/09/2024 1. Significantly increased gaseous distension throughout the colon, with cecum distended to 7 cm. Smooth tapering to the sigmoid colon without focal wall thickening identified. 2. New fluid level in the rectum with continued mild rectal wall thickening and perirectal edema. 3. No evidence of perforation or drainable collection. THIS DOCUMENT HAS BEEN ELECTRONICALLY SIGNED BY SRIDEVI DEE MD FOR ANY QUESTIONS OR CONCERNS REGARDING THIS REPORT PLEASE CALL [facility] AT [phone] US ABDOMEN LIMITED Result Date: 02/09/2024 Fatty infiltration of the liver. THIS DOCUMENT HAS BEEN ELECTRONICALLY SIGNED BY SRIDEVI DEE MD FOR ANY QUESTIONS OR CONCERNS REGARDING THIS REPORT PLEASE CALL [facility] AT [phone] XR ABDOMEN 1 VIEW Result Date: 02/08/2024 1. No acute abdominal process identfied. 2. There is gaseous distension of the colon very little gas and moderate amount of stool is seen within the rectum. Consider distal colonic obstruction or obstipation. 3. Has this patient undergone an enema questionable ? THIS DOCUMENT HAS BEEN ELECTRONICALLY SIGNED BY KRISTIAN KHAN MD FOR ANY QUESTIONS OR CONCERNS REGARDING THIS REPORT PLEASE CALL [facility] AT [phone] CT ABDOMEN PELVIS W CONTRAST Result Date: 02/07/2024 1. The gallbladder is distended. Consider further assessment with ultrasound if there is right upper quadrant tenderness. 2. Increased stool in the colon. There is a large volume of desiccated stool in the rectal vault with some inflammation noted in the perirectal fat. Consider fecal impaction with associated proctitis. THIS DOCUMENT HAS BEEN ELECTRONICALLY SIGNED BY JUNE FAIRBANKS MD FOR ANY QUESTIONS OR CONCERNS REGARDING THIS REPORT PLEASE CALL [facility] AT [phone] XR ABDOMEN 1 VIEW Result Date: 02/07/2024 Mild gaseous distention of a few loops of small and large bowel. Nonspecific, but may reflect mild ileus. CT recommended. [id number] XR ANKLE LEFT 3 OR MORE VIEWS Result Date: 02/04/2024 Tiny avulsion fractures, as discussed. Medial malleolar and distal talar avulsion fractures are newcompared to 2019. [id number] CT HEAD WO CONTRAST Result Date: 02/04/2024 No acute abnormality. [id number] CT ABDOMEN PELVIS W CONTRAST Result Date: 01/29/2024 No acute abnormality. THIS DOCUMENT HAS BEEN ELECTRONICALLY SIGNED BY ELIZABETH WHITTEN MD FOR ANY QUESTIONS OR CONCERNS REGARDING THIS REPORT PLEASE CALL [facility] AT [phone] XR CHEST 2 VIEWS Result Date: 01/29/2024 No acute findings. THIS DOCUMENT HAS BEEN ELECTRONICALLY SIGNED BY ELIZABETH WHITTEN MD FOR ANY QUESTIONSOR CONCERNS REGARDING THIS REPORT PLEASE CALL [facility] AT [phone] CT HEAD WO CONTRAST Result Date: 01/29/[address] Nothing acute. THIS DOCUMENT HAS BEEN ELECTRONICALLY SIGNED BY RAQUEL FELIZ MD FOR ANY QUESTIONS OR CONCERNS REGARDING THIS REPORT PLEASE CALL [facility] AT [phone] Assessment Ynes White is a 54 y.o. 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 The patient is now transferred here to [facility] Neurology service for AIDP treatment and neuromuscular consultation. 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 - IVIG 0.4 g/kg for 5 days (last day of treatment on 02/21) - Pulmonary mechanics Q8H (no respiratory involvement so far) - PT, OT, IRON POURER consult - Neuromuscular consult in AM Ileus / Pseudo-obstruction, resolving - Continue senna, Miralax, bisacodyl B12 deficiency, suspected pernicious anemia Folate deficiency - Intrinsic factor antibody on 02/16 was positive, but Ynes had been administered B12 injection on 02/15, which can cause false positive IFAb test - Repeat IFAb on 03/01 per outside records - Continue PT folic acid OTHER CONDITIONS Avulsion fracture of left ankle: Boot in place, scheduled acetaminophen, PRN PO hydromorphone 1 mg Q 12 H. 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: ROD PLACER apixaban 2.5 mg BID Hypertension: Propranolol Hypomagnesemia: Monitor level, replete prn Hyponatremia, mild, asymptomatic, likely hypovolemic, improving: Monitor, encourage PO intake Depression / Anxiety / PTSD: ROD PLACER bupropion, olanzapine, prazosin, propranolol GERD: ROD PLACER PPI Did patient have a stroke or TIA? No Discharge Plan: Uncertain at this time Admission status Inpatient admission due to anticipated duration of hospitalization is two midnights or greater due to GBS. Simona Cheng DO Neurology PGY-2 Pgr [id number] / [id number] after 7 PM 02/20/24 0:43 Addendum 02/19: Patient re-examined on morning rounds. S: Ynes is feeling okay this morning. Endorses numbness in her legs and lower arms. O: Mental status: The patient is AxOx1 to person only. Follows simple commands. Speech: Moderate dysarthria present. Cranial nerves: CN II: Visual fam not tested due to limited patient ability. Pupils are 2 mm and not reactive tolight. CN III, IV, : EOMMs [previously] intact with no nystagmus, gaze palsy or preference. No ptosis. CN V: Facial sensation is intact to light touch in all 3 divisions bilaterally. Normal masseter bulk. CN VII: Face is symmetric with normal eye closure and drooping smile. Buries eyelashes symmetrically. CN VIII: Hearing is normal to rubbing fingers / grossly intact. CN XI: shoulder shrug are symmetric with full strength. Motor: Arms raise antigravity. Muscle bulk and tone are normal. No tremors or abnormal movements noted during exam. Neck flexion 4/5, neck extension 5-/5. Upper Extremity Strength Shoulder abd (C5) Elbow flexion (C5,6) Elbow ext (C7) Category Manager (T1) Right 3/5 4-/5 4-/5 4/5 Left 3/5 4-/5 4-/5 4/5 Lower Extremity Strength Hip flexion (L2,3) Knee extension (L3,4) Ankle DF (L4,5) Knee flexion (L5,S1) Ankle PF (S1,2) Right 3/5 3/5 3/5 3/5 4/5 Left untested due to fracture. Reflexes DTR Right Left Biceps (C5-6) 0 0 BR (C5-6) 0 0 Triceps (C7-8) trace 0 Patellar (L3-4) 0 0 Achilles (S1-2) 0 - Ankle Clonus absent - Plantar downgoing - Kenney absent absent LLE untested due to fracture. Counted to 13 in a singular breath, skipping a few numbers. Sensory: Pin prick: Sensation intact in upper arms bilaterally, absent bilaterally in LE Temperature: sensation to cold intact at the level of elbow and higher in UE, and intact at the level of the proximal lower right leg Proprioception: Unable to identify position of right pointer finger Coordination, Gait: Not tested due to limited patient ability. 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 Suspect that severe B12 deficiency is contribution. See neuromuscular consult note for further details. Plan to continue treatment with IVIG as well as initiate vitamin supplementation with updates to the plan as below. - Continue IVIG 0.4 g/kg for 5 days (last day of treatment on 02/21) - Pulmonary mechanics Q8H (no respiratory involvement so far) - PT/OT pending - Will inquire about adding on autoimmune evaluation: Anti-Ro60 and Anti-Ro52, anti-dsDNA and RF, [place] send out ENS2 - Follow [place] CIDP panel - start B12 1000 mcg daily for 7 days then weekly for 8 weeks then monthly - start high dose thiamine - will explore further cognitive work up Karthikeyan Sue MS3 02/20/2024 9:16 Resident attestation: I was present with the medical student for the history, exam, and medical decision making documented. I have edited the medical student note as appropriate. Matilda Melton MD Neurology PGY-2 02/20/24 19:29 Cosigned by Socorro Soto DO at 02/25/2024 18:10 EDT Associated attestation - Socorro Soto DO - 02/25/2024 1810 EDT NEUROLOGY INPATIENT SUPERVISORY NOTE FOR MEDICAL STUDENT AND RESIDENT I personally saw, examined and evaluated Ynes White on the date of service in conjunction with our resident, Dr. Melton, our medical student, Karthikeyan Sue, and the rest of the inpatient General Neurology team. I was present with the medical student for the history, exam, medical decision making documented by him/her. I have personally performed my own physical exam and medical decision making. I have verified and agree with (or, as indicated, have edited) the medical student???s documentation. Socorro Soto DO 02/25/24 18:10 documented in this encounter Procedure Notes * Shawn Cabrera MD - 02/20/2024 1449 EDTAssociated Order(s): EMG/NERVE CONDUCTION STUDY Images from the original note were not included. Department of Neurological Sciences Neuromuscular EMG Lab History: This is a 54-year-old woman seen in electrodiagnostic and neuromuscular consultation to evaluate symptoms of progressive upper and lower extremity sensory loss, possible weakness, falls. The patient has difficulty providing a comprehensive history today. Over the last 3 weeks she appears to have developed progressive sensory and motor dysfunction which resulted in a fall, left ankle fracture, andprogressive disability. She is currently unable to move outside of the bed. She notes that both legs are numb up to at least the level of the waist and she has difficulty feeling things with her hands. She does not believe that she has full cognitive function currently and reports that she is having difficulty understanding what other people are saying to her. Patient reports that she lives alonebut has a sister who lives close by. She was initially admitted to [facility] on February 17, 2024. At that time, she was discovered to have vitamin B12 deficiency. In addition, she had anEMG nerve conduction study by my colleague, Dr. Polk, which showed widespread loss of sensory potentials with preserved motor potentials in the upper and lower extremity. She also had an LP whichshowed elevated CSF protein at 200. She was given a single dose of vitamin B12 and started on IVIG.Additional labs were sent for inflammatory radicular neuropathies. The patient has difficulty providing history but does not believe that she had a preceding illness. Clinical Exam: This is a 54-year-old woman who is in a stretcher She is alert and oriented to the [facility] but not to the hospital or Medical Center. She is unable to tell me her town of residence. She also has significant difficulty describing the length of her symptoms. Language: She has mild nasal dysarthria. In addition, she is unable to follow simple commands with her upper extremities. She was able to follow central commands in the face with ability to close and open eyeson command. Motor: Normal bulk of the upper and lower extremities without evidence of fasciculations. Patient has difficulty participating in the clinical exam. She is able to give partial effort with shoulder abduction, elbow flexion/extension, wrist flexion/extension, finger spread, hip flexion, hip extension, ankle dorsiflexion bilaterally. She has a significant amount of giveway and I am unable to fully grade strength testing. Sensory: The patient does appear to have some component of athetosis in the upper extremities. She has difficulty holding her arm up on the stretcher when I removed the bedside guardrail. Similarly, she is unable to fully sense the position of her lower extremities. Absent pin sensation the bilateral lower extremities to the waist and bilateral upper extremities to above the elbow. Return of normal pin sensation in the upper chest. Absent vibration at toes, ankles, knees, index finger, and elbows. Reflexes: Absent bilateral biceps, triceps, brachioradialis, knee jerks. Absent right ankle jerk. Unable to test left ankle jerk. Toes downgoing on the right. Coordination: Difficult to test to the degree of inability to follow commands. Gait: Unable to test due to sensory loss and possible weakness For waveforms/values of EMG/nerve conduction study please see accompanying scanned document in the scans/media tab in EPIC. Electrodiagnostic Findings: Nerve Conduction: 1. Unable to evoke the right sural, superficial peroneal, ulnar, median, radial, and medial antebrachial cutaneous nerve or the forearm sensory responses 2. Normal right median, ulnar, peroneal, and tibial motor responses 3. Normal right peroneal, tibial, median, and ulnar F-wave late responses Needle EM. Patient has isolated reduced activation in the right deltoid, first dorsal interosseous, and vastus medialis. There is no abnormal spontaneous activity in these muscles in the limited voluntary motor units appreciated are of normal morphology 2. Normal right tibialis anterior Electrodiagnostic Impression: This is an abnormal study. The findings on today's study of inability to evoke all sensory potentials with well-preserved normal motor potentials, normal F- wave late responses, and relatively normal needle EMG are most consistent with a sensory neuronopathy (AKA ganglionopathy). Alternatively, these could be consistent with a severe axonal sensory polyneuropathy. The study does not show evidence of a demyelinating polyradiculoneuropathy. In addition, despite the degree of inability to move the limbs, the patient showed no evidence of active denervation in the upper or lower extremities nor evidence of reduced recruitment. In comparison to the study performed at [facility] on February 18, 2024, today's exam is similar. 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 I appreciated areflexia in the upper and lower extremities, inability to feel the tuning fork in the upper and lower extremities, severe loss of pin function, and pseudo athetosis. It is unclear if the patient has true motor weakness or inability to move the limbs because she cannot feel them. It was difficult for her to coordinate movements. She was also not following commands appropriately and appears to have some component of cognitive dysfunction as well. The differential diagnosis of a sensory neuronopathy includes autoimmune etiologies, paraneoplasticsyndrome, Sjogren's syndrome, and idiopathic. In addition, the patient was noted to have a very lowvitamin B12 level and did elevated antiintrinsic factor antibody at [facility]. Giventhe concurrent peripheral nerve findings and cognitive dysfunction, severe vitamin B12 deficiency is also a consideration the patient's differential diagnosis. The patient does also have elevated CSFprotein suggesting an acute autoimmune process. Workup recommendations: 1. Please see if more sensitive Sjogren's antibody testing can be sent from [facility] blood work. (Anti-Ro60 and Anti-Ro52). Please also see if you can add anti-dsDNA and RF. 2. Send serum encephalopathy paraneoplastic profile from [facility] serum (ENS2 Encephalopathy, Autoimmune/Paraneoplastic Evaluation, Serum). [place] should already have serum for other requested testing. 3. Follow results of [place] CIDP panel 4. Exclude malignancy 5. Recommend establishing the patient's neurological baseline and how far off, her cognitive function is from that baseline. Cognitive workup per the primary team. Treatment recommendations: 1. Agree with treatment with IVIG 2 g/kg divided over 5 days 2. Recommend supplementation with intramuscular vitamin B12 1000 mcg daily for 7 days then weekly for 8 weeks then monthly. I do not recommend checking antiintrinsic factor at this time as current IVIG administration will impact the results of this test. Since the patient's clinical presentation could be consistent with severe B12 deficiency I recommend the supplementation empirically. 3. Aggressive physical and occupational therapy Will need to observe the patient over the next days to weeks to see how much function returns in the setting of the above interventions. Sensory neuronopathy is often have limited improvement, even with treatment of an autoimmune etiology. Aggressive rehabilitation is likely to be needed in this circumstance. Thank you for allowing me to participate in the care of your patient. Please don't hesitate to callwith any questions. 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 Repeat EMG completed and results consistent with sensory neuronopathy vs. Severe axonal sensorypolyneuropathy. The differential for sensory neuronopathies is as follows: autoimmune (Sjogren???s syndrome, FGFR3 associated neuronopathy, SLE, celiac disease, autoimmune hepatitis, immune checkpoint inhibitors such as pembrolizumab), paraneoplastic (which can present prior to a cancer diagnosis), toxicity (B6 tox icity, match-e-be-nash-she-wish band-based chemotherapy), infectious (rarely triggered by HIV, HTLV- 1, EBV, VZV, leprosy, enterovirus, zika), idiopathic (50%, presumed to be autoimmune). So far no definitive cause has been identified and autoimmune (SSA/SSB) and malignancy (CT C/A/P) work up has been unremarkable. Do suspect that severe nutritional deficiencies including severe B12 deficiency may be contributing to her presentation; plan to expand nutritional work up as below; F/u Vitamins B1, B2, B3, B6, B7, A, E,D, chromium, selenium, copper, zinc, and coenzyme Q10 as documented by Simona Cheng DO Neurology 02/22/24. Subjective: I had [employer] per patient when asked about breakfast today. Patient very sleepy during attempted interview. She shook her head no to offer of multiple supplement options. No family present. RNreports that patient didn't have Martinez[employer] this morning. RN states that patient appears to like ice cream. Current Nutrition Orders: Diet-Dysphagia 2 with nectar thick liquids--house select--calorie count X 3 days (02/21-02/23) Physical Findings: Digestive Systems: Last BM 02/14/24 Dentition: Teeth: Intact, Missing teeth per flowsheets Edema: none documented Skin: abrasion Allergies on file: Citalopram, Duloxetine, Gabapentin, Levetiracetam, Trazodone, and Zolpidem Nutrition Focused Physical Exam Deferred; patient too sleepy to participate today. Temporal wasting noted. Anthropometrics: Height: 170.2 cm (67.01) Wt Readings from Last 6 Encounters: 02/20/24 81 kg (178 lb 9.2 oz) 02/19/24 81 kg (178 lb 9.2 oz) 09/11/23 94.3 kg (207 lb 14.4 oz) 05/23/23 96.2 kg (212 lb) 08/01/22 63.9 kg (140 lb 14 oz) 03/28/22 60.5 kg (133 lb 4.8 oz) [facility] admit wt-83.825 kg (184 lbs) on 02/04/24 BMI: Body mass index is 27.96 kg/m??. Weight Change: 6 lb weight loss (3 %) over 2.5-3 weeks; 29 lb weight loss (14 %) over 5 months, if confirmed Pertinent Medications: Current Facility-Administered Medications Medication Route Frequency acetaminophen (TYLENOL) tablet 325 mg oral Q4H PRN acetaminophen (TYLENOL) tablet 650 mg oral DAILY apixaban (ELIQUIS) tablet 2.5 mg oral BID bisacodyL (DULCOLAX) suppository 10 mg rectal Daily PRN blood thinner patient education booklet 1 Each other Once (Without Time Specified) buPROPion (WELLBUTRIN SR) SR tablet 100 mg oral BID cyanocobalamin (VITAMIN B12) injection 1,000 mcg intramuscular DAILY diphenhydrAMINE (BENADRYL) capsule 25 mg oral DAILY EPINEPHrine (ADRENALIN) injection 0.3 mg intramuscular PRN folic acid (FOLVITE) tablet 1 mg oral DAILY melatonin tablet 5 mg oral QHS methocarbamoL (ROBAXIN) tablet 500 mg oral BID PRN methylPREDNISolone sod suc(PF) (SOLU-MEDROL) injection 100 mg intravenous PRN OLANZapine (ZYPREXA) tablet 20 mg oral QHS pantoprazole (PROTONIX) tablet 40 mg oral DAILY polyethylene glycol 3350 (MIRALAX) packet 17 g oral DAILY Prazosin (MINIPRESS) capsule 1 mg oral QHS pregabalin (LYRICA) capsule 100 mg oral BID propRANolol (INDERAL) tablet 10 mg oral TID PRN senna (SENOKOT) tablet 1 Tablet oral QHS thiamine (VITAMIN B-1) 500 mg in sodium chloride (NS) 0.9 % 50 mL IVPB intravenous TID Pertinent Labs: Lab Results Component Value Date/Time NA 137 02/22/2024 10:13 K 3.9 02/22/2024 10:13 CO2 22 02/22/2024 10:13 CL 107 02/22/2024 10:13 BUN 10 02/22/2024 10:13 CREATININE 0.73 02/22/2024 10:13 GLUCOSEPOC 86 02/21/2024 14:17 CALCIUM 8.8 02/22/2024 10:13 PHOS 4.6 (H) 02/22/2024 10:13 MG 1.6 (L) 02/22/2024 10:13 Lab Results Component Value Date/Time HGB 10.3 (L) 02/22/2024 11:26 HCT 29.4 (L) 02/22/2024 11:26 MCV 100 (H) 02/22/2024 11:26 Lab Results Component Value Date/Time FOLATE 5.03 02/16/2024 07:55 [id number] 729 02/16/2024 07:55 VITD 32 03/08/2022 06:58 MMA-0.16 (02/17/24) Estimated Nutrition Needs: [place] St Jeor X 1.2 (using 81 kg) = 1720 kcals/day 1.2 g/kg protein (using 81 kg) = 100 g protein/day Estimated Nutrition Intake: 25 % of meal trays, 1 yogurt; kcal counts in progress Review of chart indicates patient eating poorly during [facility] admit 02/03-02/19 ASSESSMENT: RD Malnutrition Assessment Unable to assess for malnutrition at this time. Consult received for multivitamin deficiencies in setting of prolonged poor po intake. Review of chart indicates patient eating poorly during ~2 week admission at [facility], with possibility of poor po intake for up to ~1 month at home prior to that admission. Unable to obtain food preferences from patient today. Will send magic cups and mighty shakes as potential source of additional kcals/protein. IRON POURER bedside swallow evaluation pending. Patient recently found to have B12 and folate deficiency. Patient received folate and B12 supplementation at [facility], with repletion of levels to normal range. MMA noted WNL. Multiple other vitamin/mineral levels are ordered and pending, as outlined in neurology progress note. Recommend starting a general multivitamin with minerals while waiting for levels to return. Consider checking iron studies. Nutrition Risk Level: High (1) MEDICAL NUTRITION THERAPY PLAN: -Recommend multivitamin with minerals -Include lytes, mag and phos in daily labs -Check iron studies to include iron and TIBC -Diet per IRON POURER -Nutrition to send magic cup BID, mighty shake BID; House Select trays -Nutrition to f/u kcal count data when available -Monitor weights, stool pattern and skin -RD following plan Alicia López RD, CD (Call PAS or use [employer] ([employer] to page RD covering this unit) documented in this encounter Miscellaneous Notes * Plan of Care - Sridevi Osuna RN - 02/25/2024 0342 EDT Problem: Daily Care Plan Goals Goal: Care Plan Documentation Flowsheets (Taken 02/24/2024 2100) Area of Focus: Neuro Status Goal This Shift: pt neuro status will remain stable Data: HD 5 for GBS, s/p IVIG. A&O to self, PERRLA, generalized weakness. Reyes in place for acute urinary retention, incontinent of bowel. HR sustaining above 120 bpm, MD notified. Action: Assessed Q8h NVS while awake. Administered medications per MAR, x1 500 cc bolus of LR. Q2h repositioning. Hourly safety checks. Response: Neuro status stable, VSS, HR <120 bpm. Pt resting in bed, call farris within reach. [place] d/c to rehab at 1000. SRIDEVI OSUNA RN 02/25/2024 3:42 Problem: NEUROLOGICAL FUNCTION Goal: Neurological Status is Stable or Improving Outcome: Ongoing Problem: HEMODYNAMIC STATUS Goal: Patient Has Stable VS & Fluid Balance Outcome: Ongoing * Plan of Care - Jaylyn Pelletier RN - 02/24/2024 0409 EDT Problem: Daily Care Plan Goals Goal: Care Plan Documentation Outcome: Ongoing Flowsheets (Taken 02/24/2024 0109) Area of Focus: Nutrition/ Diet Goal This Shift: Pt will increase PO intake this shift Data: Assumed care at 2300. HD #4 pt admitted with GBS and fall with LLE ankle fracture, now s/p 5/5 IVIG. Pt is A&Ox1, incontinent and vida OOB. Reyes in place. PERRLA with significant generalized weakness. Pt aphasic with slurred and hesitant speech. Pt drowsy. Pt denies pain. Pt increasingly tachy in the 120s on tele - MD notified, EKG completed and fluid bolus given. Reyes in place for retention. Lactated ringers infusing at 100 ml/hr. Poor UO overnight - MD notified. Action: Administered meds per JAN. Assessed Q4 neuro vital signs. Q2 turns and repositions. Notified MD of poor PO intake, tachycardia and possible need for fluids. Clustered care to promote rest. Assessed pain. Encouraged pt to utilize call light with questions or concerns. Response: HR improved after fluid bolus and continuous fluids. Otherwise VSS. Neuro status unchanged overnight - pt continues to be drowsy and exhibit generalized weakness. Poor PO continues and poorUO. Pt resting comfortably overnight. Call light within reach. Safety precautions in place to reduce fall risk. JAYLYN PELLETIER RN 02/24/2024 4:09 Problem: High Fall Risk: Goal: Patient Will Remain Free from Fall-Related Injury Outcome: Ongoing Problem: SKIN INTEGRITY Goal: Skin integrity will improve or be maintained Outcome: Ongoing Problem: NEUROLOGICAL FUNCTION Goal: Neurological Status is Stable or Improving Outcome: Ongoing * Plan of Care - Estela Calabrese RN - 02/23/2024 0631 EDT Problem: High Fall Risk: Goal: Patient Will Remain Free from Fall-Related Injury Outcome: Ongoing Problem: NEUROLOGICAL FUNCTION Goal: Neurological Status is Stable or Improving Outcome: Ongoing Problem: Pressure Ulcer Prevention Goal: Absence Of Pressure Ulcer Outcome: Ongoing Patient remains stable no changes in neurological deficits noted at this shift. No new complaints reported at this shift. Sinus tachy on the crystal mounter. Repositioned Q2H. Patient rested well at this shift. Fall prevention measures in place and effective. Call light in reach. * Plan of Care - Carmen Heaton RN - 02/22/2024 1731 EDT Problem: High Fall Risk: Goal: Patient will Remain Free of Falls due to Med. Side Effects Outcome: Met This Shift Problem: High Fall Risk: Goal: Patient Will Remain Free from Fall-Related Injury Outcome: Met This Shift Problem: Daily Care Plan Goals Goal: Care Plan Documentation Outcome: Met This Shift Problem: Sensory: Goal: Ability to compensate for vision loss will be supported Outcome: Ongoing Problem: SKIN INTEGRITY Goal: Skin integrity will improve or be maintained Outcome: Ongoing Problem: NEUROLOGICAL FUNCTION Goal: Neurological Status is Stable or Improving Outcome: Ongoing Data: Patient exhibiting expressive and receptive aphasia, L-ankle pain, admitted for GBS. Action: 5th dose of IVIG administered, patient tolerated infusion well with no adverse reaction. Q4VS have been stable. Appetite is poor, PO intake encouraged. Robaxin and tylenol given for pain with good effect. Response: Patient reports reduction in pain levels, was able to eat some of her lunch, still reports no appetite. CARMEN HEATON RN 02/22/2024 17:32 * Plan of Care - Terrence Ayoub RN - 02/22/2024 0543 EDT Data:02/22/2024 Action is AxOx1 to person only. Follows simple commands. Pain to LLE Response: Neuro checks, vital signs and pain assessment q4. Reorient as needed, pain controlled with medication ordered, vital signs stable TERRENCE AYOUB RN 02/22/2024 5:44 * Plan of Care - Tayler Rutherford - 02/21/2024 1053 EDT Problem: HEMODYNAMIC STATUS Goal: Patient Has Stable VS & Fluid Balance Outcome: Ongoing Data: Admitted on 02/19 for suspected GBS and sensory neuropathy. AOx2, global aphasia, generalized weakness at baseline. Has received three previous doses of IVIG. Scheduled for IVIG today at 0900. Action: Administered IV Benadryl, IV Thiamine, and PO Tylenol at approx 0800 (see eMAR). Assessmentat 0900 demonstrated BP 50s/30s, tachycardia, somnolence, and reported headache. Pt denies vision changes, dizziness, chest pain, SOB, pain. Placed patient in trendelenberg and called rapid response to bedside. TIME RECORDER obtained EKG and cxray. Initiated 1000ml IV bolus per verbal orders. Infiltrated IV access in R forearm. IV removed. Paged IV team for JAVID access for IV bolus. Response: Rapid response to bedside. Neuro resident Dr. Herman at bedside. Plan to hold scheduled medications until patient is stable. Holding IVIG infusion at this time with plan to start at 12pm if patient BP is stable. IV team obtained new IV access. Patient's BP, mental status, and headache improved with IV fluids. BP approx 140s/80s after IV fluid bolus. TAYLER RUTHERFORD 02/21/2024 10:53 Cosigned by Phoebe Ponce RN at 02/21/2024 13:27 EDT * Plan of Care - Tangela Alston RN - 02/21/2024 0348 EDT Problem: SKIN INTEGRITY Goal: Skin integrity will improve or be maintained Outcome: Ongoing Problem: Daily Care Plan Goals Goal: Care Plan Documentation Outcome: Ongoing Problem: NEUROLOGICAL FUNCTION Goal: Neurological Status is Stable or Improving Outcome: Ongoing Data: HD 2, pt admitted with progressive weakness. Aox1-2, PERRLA, weak throughout. Pt aphasic (expressive>receptive) with hesitant/slurred speech. Pt very drowsy, can be difficult to awaken at times. Pt has received 3 doses of IVIG, plan for 2 more daily doses. Reyes in place for retention, incontinent of bowels. L ankle fx, boot and tubigrip in place. Pt reports 7/10 ankle pain, denies nausea or discomfort. Blanching pinkness on coccyx, covered with mepilex. Vida OOB. Action: Monitored neuro/VS q4h and administered medications per JAN, whole/one at a time in pudding. PRN tylenol administered for pain. Repositioned q2h. Provided reyes care. Rounded hourly and clustered care to promote rest. Response: Neuro status unchanged and VS within parameters. Pt slept throughout the night, denied pain on last assessment. Pt currently resting in bed, soft touch call farris within reach, no further needs expressed at this time. Plan for IVIG today. TANGELA ALSTON RN 02/21/2024 3:48 * Plan of Care - Sharmila Hale - 02/20/2024 1023 EDT Data: Pt is 54 y/o F with a history of prior left CVST caused by left intracerebral hemorrhage withfocal epilepsy, chronic lower back pain,tremor, broken left ankle w/ trace edema, mild cognitive impairment and slight aphagia. Transferred to [facility] from [facility] early this morning due to GBS in addition to broken ankle. Pt is receiving Ivig through 02/22/24. Reported pain as a 7 in left ankle as well as asked for some form of entertainment Action: Pt was given tylenol and benadryl in addition to left ankle elevation to reduce pain experienced by pt. Also turned on television to give pt entertainment. Given IVIg and VS were monitored closely during infusion. Response: Pt reported slight reduction in pain to a 6 and is happy with the television being on. VSremained stable through infusion, no adverse reactions to IVIg. Sharmila Hale 02/20/2024 11:18 Cosigned by Linsey Chapa RN at 02/20/2024 13:01 EDT * Plan of Care - Tangela Alston RN - 02/20/2024 0313 EDT Problem: Daily Care Plan Goals Goal: Care Plan Documentation Outcome: Ongoing Problem: NEUROLOGICAL FUNCTION Goal: Neurological Status is Stable or Improving Outcome: Ongoing Data: HD 1, pt admitted from OSH with possible AIDP. Aox3, globally aphasic (expressive>receptive) with hesitant/slurred speech. Pt very drowsy, can be hard to awaken at times. Weak throughout, PERRLA. Pt has received 2 doses of IVIG, plan for 3 more daily doses. Reyes in place for retention, incontinent of bowels. Left ankle fx, boot and tubigrip in place. Pt reports 4/10 ankle pain, denies nausea or discomfort. Action: Monitored neuro/VS q4h and administered medications per JAN, whole/one at a time in pudding. Repositioned q2h. Provided reyes care and assisted with daily cares. Rounded hourly and clustered care to promote rest. Response: Neuro status unchanged and VS within parameters. Pt slept between nursing cares. Pt currently resting in bed, soft touch call farris within reach, no further needs expressed at this time. Plan for IVIG today. TANGELA ALSTON RN 02/20/2024 3:14 FOUR EYES SKIN ASSESSMENT Four Eyes skin assessment was performed on admission to the unit by Tangela Alston RN and Vandana Wilson RN. Patient has the following devices at the time of this assessment: Peripheral IV, O2 sat probe, Reyes, SCD sleeves, and Splint/cast(s). Device related pressure injury present? No Areas of concern: Fill in detail for areas of concern [] Occiput [] Nose [] Ear [] Lip [] Scapula [] Spinous process [] Shoulder [] Elbow [] Iliac crest [x] Sacrum/coccyx - blanching pinkness [] Ischial tuberosity [] Trochanter [] Knee [] Malleolus [] Heel [] Toe [] Other: Last Teja Score: 15 Instructions: Add LDA for any identified wounds Add Labelle image for any suspected PI or non surgical wounds Order wound consult if suspected PI identified If Teja is < or = to 16, initiate Pressure Injury Prevention Bundle (CPM1951). 02/20/2024 3:14 documented in this encounter Plan of Treatment Upcoming Encounters Date Type Department Care Team (Late st Contact Info) Description 03/04/2025 14:00 EDT Telemedicine [facility] [address] [place] [address] Brayan Polk MD [address] [facility] [address] [place] [address] 07/14/2025 14:30 EDT Office Visit [facility] Hematology & Oncology - [facility] [address] [place] [address] Evin Maria MD [address] [facility], [address] [place] [phone] documented as of this encounter Procedures Procedure Name Priority Date/Time Associated Diagnosis Comments ECG REPORT - SCANNED 03/11/2024 14:31 EDT ECG REPORT - SCANNED 02/27/2024 14:28 EDT ECG REPORT - SCANNED 02/27/2024 11:57 EDT ECG REPORT - SCANNED 02/24/2024 6:43 EDT EKG 12-LEAD STAT 02/24/2024 1:40 EDT COMPLETE BLOOD COUNT Routine 02/23/2024 8:04 EDT PHOSPHORUS Routine 02/23/2024 8:04 EDT MAGNESIUM Routine 02/23/2024 8:04 EDT BASIC METABOLIC PANEL (BMP) Routine 02/23/2024 8:04 EDT COMPLETE BLOOD COUNT Routine 02/22/2024 11:26 EDT COPPER, SERUM Routine 02/22/2024 10:14 EDT ZINC, SERUM Routine 02/22/2024 10:14 EDT RIBOFLAVIN (VITAMIN B2), P Routine 02/22/2024 10:14 EDT SELENIUM, S Routine 02/22/2024 10:14 EDT MISCELLANEOUS TEST, VYAS Routine 02/22/2024 10:14 EDT CHROMIUM SERUM Routine 02/22/2024 10:14 EDT HTLV I/II AB CONFIRMATION Routine 02/22/2024 10:13 EDT VITAMIN D (25,[place]) Routine 02/22/2024 10: 13 EDT VITAMIN E, SERUM Routine 02/22/2024 10:1 3 EDT PYRIDOXAL 5 PHOSPHATE (PLP), PLASMA Routine 02/22/2024 10:13 EDT PHOSPHORUS Routine 02/22/2024 10:13 EDT MAGNESIUM Routine 02/22/2024 10:13 EDT BASIC METABOLIC PANEL (BMP) Routine 02/22/2024 10:13 EDT MISCELLANEOUS TEST, [place] Routine 02/21/2024 17:31 EDT MISCELLANEOUS TEST, [place] Routine 02/21/2024 17:31 EDT MISCELLANEOUS TEST, [place] Routine 02/21/2024 17:31 EDT POCT GLUCOSE, INTERFACED Routine 02/21/2024 14:17 EDT XR CHEST PORTABLE 1 VIEW STAT 02/21/2024 9:29 EDT EKG 12-LEAD STAT 02/21/2024 9:14 EDT THIAMIN (VITAMIN B1), WB Routine 02/21/2024 6:50 EDT DOUBLE STRANDED DNA ANTIBODY, IGG Today 02/21/2024 6:50 EDT COMPLETE BLOOD COUNT Routine 02/21/2024 6:50 EDT RHEUMATOID FACTOR Add-On 02/21/2024 6:5 0 EDT MAGNESIUM Routine 02/21/2024 6:50 EDT BASIC METABOLIC PANEL (BMP) Routine 02/21/2024 6:50 EDT EMG/NERVE CONDUCTION STUDY Routine 02/20/2024 14:49 EDT COMPLETE BLOOD COUNT Routine 02/20/2024 7:36 EDT MAGNESIUM Routine 02/20/2024 7:36 EDT BASIC METABOLIC PANEL (BMP) Routine 02/20/2024 7:36 EDT MISCELLANEOUS TEST, VYAS Today 02/15/2024 6:39 EDT documented in this encounter Results * ECG REPORT - SCANNED (03/11/2024 14:31 EDT) 03/11/2024 14:3 1 EDT us Scan 2 Surveillance Sensor Officer PROCEDURE/MINOR SURGICAL OR DERABLES Final Result * ECG REPORT - SCANNED (02/27/2024 14:28 EDT) 02/27/2024 14:2 8 EDT us Scan 2 Surveillance Sensor Officer PROCEDURE/MINOR SURGICAL OR DERABLES Final Result * ECG REPORT - SCANNED (02/27/2024 11:57 EDT) 02/27/2024 11:5 7 EDT us Scan 2 Surveillance Sensor Officer PROCEDURE/MINOR SURGICAL OR DERABLES Final Result * ECG REPORT - SCANNED (02/24/2024 6:43 EDT) 02/24/2024 6:43 EDT us Scan 2 Surveillance Sensor Officer PROCEDURE/MINOR SURGICAL OR DERABLES Final Result * EKG 12-LEAD (02/24/2024 1:40 EDT) 02/24/2024 1:40 EDT Narrative [facility] EKG - 03/11/2024 14:26 EDT ? [facility] ? Test Date: ?2024-02-24 Pat Name: ? YNES WHITE ? Department: ?? [place] [address] ? Room: ? M5411 Gender: ? Female ? 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 [id number] : ?1970 ? Requested By: BYRON SANCHES Order Number: [id number] ? Reading MD: ?? ANSELMO DIETER MD ? Measurements Intervals ?[place] ? Rate: ? 115 ?P: ?35 PA: ? 112 ?QRS: ?11 QRSD: ? 75 ? T: ?47 QT: ? 330 ? QTc: ?457 ? Interpretive Statements SINUS TACHYCARDIA WITH SHORT PA INTERVAL POSSIBLE RIGHT VENTRICULAR CONDUCTION DELAY NONSPECIFIC ST & T-WAVE ABNORMALITY ABNORMAL RHYTHM ECG Compared to ECG 02/21/2024 09:14:00 Short PA interval now present T-wave abnormality still present I reviewed the tracing and have either agreed or edited the findings in this report. Electronically Signed On 03-11-2024 14:26:01 EDT by ANSELMO RACHEL MD. 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 Electronically Signed On 03-11-2024 14:26:01 EDT by ANSELMO MIX. us Maya Burnett MD CARDIAC ECG ORDERABLES Final Re sult Performing Organization Address City/[facility]/ZIP Co de Phone Number [facility] EKG * (ABNORMAL) PHOSPHORUS (02/23/2024 8:04 EDT) Phosphorus 5.3(H) 2.5 - 4.5 mg/dL 02/23/2024 8:49 EDT [facility] Blood VENOUS BLOOD / Unknown Venipuncture / Unknown 02/23/2024 8:04 EDT 02/23/2024 8:17 EDT Matilda Melton MD CHEMISTRY & BLOOD GAS ORD ERABLES Final Result Performing Organization Address [facility] Co de Phone Number [facility] [address] [place] [address] * MAGNESIUM (02/23/2024 8:04 EDT) Magnesium 1.7 1.7 - 2.8 mg/dL 02/23/2024 8:49 EDT [facility] Blood VENOUS BLOOD / Unknown Venipuncture / Unknown 02/23/2024 8:04 EDT 02/23/2024 8:17 EDT us Simona Cheng DO CHEMISTRY & BLOOD GAS ORDERABLES Final Result Performing Organization Address [facility] Co de Phone Number [facility] [address] [place] [address] * (ABNORMAL) BASIC METABOLIC PANEL (BMP) (02/23/2024 8:04 EDT) Sodium 138 136 - 145 mmol/L 02/23/2024 8:49 EDT [facility] Potassium 4.3 3.5 - 5.0 mmol/L 02/23/2024 8:49 [facility] Chloride 105 96 - 110 mmol/L 02/23/2024 8:49 [facility] CO2 Total 20(L) 22 - 32 mmol/L 02/23/2024 8:49 [facility] Anion Gap 13 5 - 14 mmol/L 02/23/2024 8:49 [facility] Glucose 91 70 - 99 mg/dl 02/23/2024 8:49 [facility] Calcium 8.9 8.5 - 10.5 mg/dL 02/23/2024 8:49 [facility] BUN 14 10 - 26 mg/dL 02/23/2024 8:49 [facility] Creatinine 0.67 0.52 - 1.04 mg/dL 02/23/2024 8:49 [facility] eGFR 103 >60 mL/min/1.73 m2 02/23/2024 8:49 [facility] Blood VENOUS BLOOD / Unknown Venipuncture / Unknown 02/23/2024 8:04 EDT 02/23/2024 8:17 EDT us Simona Cheng DO CHEMISTRY & BLOOD GAS ORDERABLES Final Result [facility] [address], [place] [address] * (ABNORMAL) COMPLETE BLOOD COUNT (02/23/2024 8:04 EDT) WBC 3.25(L) 4.00 - 12.40 K/cmm 02/23/2024 8:37 [facility] RBC 3.13(L) 3.86 - 5.04 M/cmm 02/23/2024 8:37 [facility] Hemoglobin 10.8(L) 11.6 - 15.2 g/dL 02/23/2024 8:37 [facility] HCT 30.8(L) 34.9 - 44.4 % 02/23/2024 8:37 [facility] MCV 98 81 - 98 fL 02/23/2024 8:37 EDT [facility] MCH 34.5(H) 26.7 - 33.3 pg 02/23/2024 8:37 T [facility] MCHC 35.1 32.1 - 35.9 g/dL 02/23/2024 8:37 T [facility] RDW-CV 14.5 <14.7 % 02/23/2024 8:37 [facility] RDW-SD 51.8(H) <50.4 fl 02/23/2024 8:37 [facility] PLT 196 141 - 377 K/cmm 02/23/2024 8:37 [facility] MPV 10.5 9.5 - 12.7 fL 02/23/2024 8:37 [facility] Blood VENOUS BLOOD / Unknown Venipuncture / Unknown 02/23/2024 8:04 EDT 02/23/2024 8:18 EDT us Simona Cheng DO HEMATOLOGY & PF4 ORDERABLES Shannon l Result Performing Organization Address City/State/[facility] Co de Phone Number [facility] [address], [place] [id number] * (ABNORMAL) COMPLETE BLOOD COUNT (02/22/2024 11:26 EDT) WBC 2.49(L) 4.00 - 12.40 K/cmm 02/22/2024 12:56 [facility] RBC 2.95(L) 3.86 - 5.04 M/cmm 02/22/2024 12:56 [facility] Hemoglobin 10.3(L) 11.6 - 15.2 g/dL 02/22/2024 12:56 [facility] HCT 29.4(L) 34.9 - 44.4 % 02/22/2024 12:56 [facility] MCV 100(H) 81 - 98 fL 02/22/2024 12:56 EDT [facility] MCH 34.9(H) 26.7 - 33.3 pg 02/22/2024 12:56 EDT [facility] MCHC 35.0 32.1 - 35.9 g/dL 02/22/2024 12:56 EDT [facility] RDW-CV 14.6 <14.7 % 02/22/2024 12:56 EDT [facility] RDW-SD 53.3(H) <50.4 fl 02/22/2024 12:56 EDT [facility] PLT 195 141 - 377 K/cmm 02/22/2024 12:56 EDT [facility] MPV 11.1 9.5 - 12.7 fL 02/22/2024 12:56 EDT [facility] Blood VENOUS BLOOD / Unknown Venipuncture / Unknown 02/22/2024 11:26 EDT 02/22/2024 12:47 EDT us Simona Cheng DO HEMATOLOGY & PF4 ORDERABLES Shannon l Result [facility] [address] [place] [address] * MISCELLANEOUS TEST, [place] (02/22/2024 10:14 EDT) Pathologist [facility] Miscellaneous Test, [place] SEE NOTE 02/26/2024 6:41 EDT [facility] Comment: Test ?Result ?Flag ??Unit ??RefValue Encephalopathy, Autoimm/Paraneo, S ??Encephalopathy, Interpretation, S ? TNP ?Encephalopathy, Autoimm/Paraneo, S was cancelled on ?02/26/2024 at 06:41; Quantity was not sufficient for ?testing. ??IFA Notes ? Not Reported ??AMPA-R Ab CBA, S ?TNP ?Encephalopathy, Autoimm/Paraneo, S was cancelled on ?02/26/2024 at 06:41; Quantity was not sufficient for ?testing. ??Amphiphysin Ab, S ? TNP ?Encephalopathy, Autoimm/Paraneo, S was cancelled on ?02/26/2024 at 06:41; Quantity was not sufficient for ?testing. ??AGNA-1, S ? TNP ?Encephalopathy, Autoimm/Paraneo, S was cancelled on ?02/26/2024 at 06:41; Quantity was not sufficient for ?testing. ??AMALIA-1, S ? TNP ?Encephalopathy, Autoimm/Paraneo, S was cancelled on ?02/26/2024 at 06:41; Quantity was not sufficient for ?testing. ??AMALIA-2, S ? TNP ?Encephalopathy, Autoimm/Paraneo, S was cancelled on ?02/26/2024 at 06:41; Quantity was not sufficient for ?testing. ??AMALIA-3, S ? TNP ?Encephalopathy, Autoimm/Paraneo, S was cancelled on ?02/26/2024 at 06:41; Quantity was not sufficient for ?testing. ??CASPR2-IgG CBA, S ? TNP ?Encephalopathy, Autoimm/Paraneo, S was cancelled on ?02/26/2024 at 06:41; Quantity was not sufficient for ?testing. ??CRMP-5-IgG, S ? TNP ?Encephalopathy, Autoimm/Paraneo, S was cancelled on ?02/26/2024 at 06:41; Quantity was not sufficient for ?testing. ??DPPX Ab IFA, S ?TNP ?Encephalopathy, Autoimm/Paraneo, S was cancelled on ?02/26/2024 at 06:41; Quantity was not sufficient for ?testing. ??MILTON-B-R Ab CBA, S ?TNP ?Encephalopathy, Autoimm/Paraneo, S was cancelled on ?02/26/2024 at 06:41; Quantity was not sufficient for ?testing. ??GAD65 Ab Assay, S ? TNP ?Encephalopathy, Autoimm/Paraneo, S was cancelled on ?02/26/2024 at 06:41; Quantity was not sufficient for ?testing. ??GFAP IFA, S ? TNP ?Encephalopathy, Autoimm/Paraneo, S was cancelled on ?02/26/2024 at 06:41; Quantity was not sufficient for ?testing. ??IgLON5 IFA, S ? TNP ?Encephalopathy, Autoimm/Paraneo, S was cancelled on ?02/26/2024 at 06:41; Quantity was not sufficient for ?testing. ??LGI1-IgG CBA, S ? TNP ?Encephalopathy, Autoimm/Paraneo, S was cancelled on ?02/26/2024 at 06:41; Quantity was not sufficient for ?testing. ??mGluR1 Ab IFA, S ?TNP ?Encephalopathy, Autoimm/Paraneo, S was cancelled on ?02/26/2024 at 06:41; Quantity was not sufficient for ?testing. ??Neurochondrin IFA, S ?TNP ?Encephalopathy, Autoimm/Paraneo, S was cancelled on ?02/26/2024 at 06:41; Quantity was not sufficient for ?testing. ??NIF IFA, S ?TNP ?Encephalopathy, Autoimm/Paraneo, S was cancelled on ?02/26/2024 at 06:41; Quantity was not sufficient for ?testing. ??NMDA-R Ab CBA, S ?TNP ?Encephalopathy, Autoimm/Paraneo, S was cancelled on ?02/26/2024 at 06:41; Quantity was not sufficient for ?testing. ??PERSONNEL PLACEMENT SPECIALIST-1, S ?TNP ?Encephalopathy, Autoimm/Paraneo, S was cancelled on ?02/26/2024 at 06:41; Quantity was not sufficient for ?testing. ??PERSONNEL PLACEMENT SPECIALIST-2, S ?TNP ?Encephalopathy, Autoimm/Paraneo, S was cancelled on ?02/26/2024 at 06:41; Quantity was not sufficient for ?testing. ??PERSONNEL PLACEMENT SPECIALIST-Tr, S ? TNP ?Encephalopathy, Autoimm/Paraneo, S was cancelled on ?02/26/2024 at 06:41; Quantity was not sufficient for ?testing. ??Septin-7 IFA, S ? TNP ?Encephalopathy, Autoimm/Paraneo, S was cancelled on ?02/26/2024 at 06:41; Quantity was not sufficient for ?testing. ?Test Performed by: ?[facility] ?[address] [place] [address] ?Manipulative Therapy Specialist: Kain Shay M.D. Ph.D.; IA# [id number] Blood VENOUS BLOOD / Unknown Venipuncture / Unknown 02/22/2024 10:14 EDT 02/22/2024 10:32 EDT Simona Cheng DO CHEMISTRY & BLOOD GAS ORDERABLES Final Result Performing Organization Address [facility] de Phone Number [facility] [address] [place] [address] * RIBOFLAVIN (VITAMIN B2), P (02/22/2024 10:14 EDT) [facility] Riboflavin (Vitamin B2) 4 1 - 19 mcg/L 02/27/2024 11:31 EDT [facility] Comment: ADDITIONAL INFORMATION This test was developed and its performance characteristics determined by [facility] in a manner consistent with CLIA requirements. This test has not been cleared or approved by the U.S. Food and Drug Administration. Test Performed by: [facility] [address] [place] [address] Manipulative Therapy Specialist: Kain Shay M.D. Ph.D.; CLIA# [id number] Blood VENOUS BLOOD / Unknown Venipuncture / Unknown 02/22/2024 10:14 EDT 02/22/2024 10:32 EDT Matilda Melton MD CHEMISTRY & BLOOD GAS ORD ERABLES Final Result Performing Organization Address [facility] de Phone Number [facility] [address] [place] [address] * CHROMIUM SERUM (02/22/2024 10:14 EDT) [facility] Chromium, S 0.8 <0.3 ng/mL 02/25/2024 21:36 EDT [facility] Comment: ADDITIONAL INFORMATION This test was developed and its performance characteristics determined by [facility] in a manner consistent with CLIA requirements. This test has not been cleared or approved by the U.S. Food and Drug Administration. Test Performed by: [facility] [place] [address] Manipulative Therapy Specialist: Kain Shay M.D. Ph.D.; CLIA# [id number] Blood VENOUS BLOOD / Unknown Venipuncture / Unknown 02/22/2024 10:14 EDT 02/22/2024 10:32 EDT Matilda Melton MD CHEMISTRY & BLOOD GAS ORD ERABLES Final Result Performing Organization Address [facility] Co de Phone Number [facility] [address] [place] [address] * (ABNORMAL) SELENIUM, S (02/22/2024 10:14 EDT) Selenium 95(L) 110 - 165 mcg/L 02/25/2024 11:12 EDT [facility] Comment: ADDITIONAL INFORMATION This test was developed and its performance characteristics determined by [facility] in a manner consistent with CLIA requirements. This test has not been cleared or approved by the U.S. Food and Drug Administration. Test Performed by: [facility] [place] [address] Manipulative Therapy Specialist: Kain Shay M.D. Ph.D.; CLIA# [id number] Blood VENOUS BLOOD / Unknown Venipuncture / Unknown 02/22/2024 10:14 EDT 02/22/2024 10:32 EDT Matilda Melton MD CHEMISTRY & BLOOD GAS ORD ERABLES Final Result Performing Organization Address [facility]/ZIP Co de Phone Number [facility] [address] [place] [address] * COPPER, SERUM (02/22/2024 10:14 EDT) Copper, Serum 80 77 - 206 mcg/dL 02/25/2024 11:12 EDT [facility] Comment: ADDITIONAL INFORMATION This test was developed and its performance characteristics determined by [facility] in a manner consistent with CLIA requirements. This test has not been cleared or approved by the U.S. Food and Drug Administration. Test Performed by: [facility] [place] [address] Manipulative Therapy Specialist: Kain Shay M.D. Ph.D.; CLIA# [id number] Blood VENOUS BLOOD / Unknown Venipuncture / Unknown 02/22/2024 10:14 EDT 02/22/2024 10:32 EDT Matilda Melton MD CHEMISTRY & BLOOD GAS ORD ERABLES Final Result Performing Organization Address [facility] [place] [address] * ZINC, SERUM (02/22/2024 10:14 EDT) [facility] Zinc, Serum 66 60 - 106 mcg/dL 02/25/2024 11:12 EDT [facility] Comment: ADDITIONAL INFORMATION This test was developed and its performance characteristics determined by [facility] in a manner consistent with CLIA requirements. This test has not been cleared or approved by the U.S. Food and Drug Administration. Test Performed by: [facility] [place] [address] Manipulative Therapy Specialist: Kain Shay M.D. Ph.D.; CLIA# [id number] Blood VENOUS BLOOD / Unknown Venipuncture / Unknown 02/22/2024 10:14 EDT 02/22/2024 10:32 EDT Matilda Melton MD CHEMISTRY & BLOOD GAS ORD ERABLES Final Result Performing Organization Address [facility] Co de Phone Number [address] [address] * (ABNORMAL) PHOSPHORUS (02/22/2024 10:13 EDT) Phosphorus 4.6(H) 2.5 - 4.5 mg/dL 02/22/2024 11:00 EDT [facility] Blood VENOUS BLOOD / Unknown Venipuncture / Unknown 02/22/2024 10:13 EDT 02/22/2024 10:49 EDT Matilda Melton MD CHEMISTRY & BLOOD GAS ORD ERABLES Final Result Performing Organization Address [facility]/ZIP Co de Phone Number [facility] [address] [place] [address] * (ABNORMAL) MAGNESIUM (02/22/2024 10:13 EDT) Pathologist [facility] Magnesium 1.6(L) 1.7 - 2.8 mg/dL 02/22/2024 11:00 EDT [facility] Blood VENOUS BLOOD / Unknown Venipuncture / Unknown 02/22/2024 10:13 EDT 02/22/2024 10:49 EDT Simona Cheng DO CHEMISTRY & BLOOD GAS ORDERABLES Final Result Performing Organization Address [facility]/ZIP Co de Phone Number [facility] [address] [place] [address] * (ABNORMAL) BASIC METABOLIC PANEL (BMP) (02/22/2024 10:13 EDT) Pathologist [facility] Sodium 137 136 - 145 mmol/L 02/22/2024 11:00 EDT [facility] Potassium 3.9 3.5 - 5.0 mmol/L 02/22/2024 11:00 EDT [facility] Chloride 107 96 - 110 mmol/L 02/22/2024 11:00 EDT [facility] CO2 Total 22 22 - 32 mmol/L 02/22/2024 11:00 EDT [facility] Anion Gap 8 5 - 14 mmol/L 02/22/2024 11:00 EDT [facility] Glucose 123(H) 70 - 99 mg/dl 02/22/2024 11:00 EDT [facility] Calcium 8.8 8.5 - 10.5 mg/dL 02/22/2024 11:00 EDT [facility] BUN 10 10 - 26 mg/dL 02/22/2024 11:00 EDT [facility] Creatinine 0.73 0.52 - 1.04 mg/dL 02/22/2024 11:00 EDT [facility] eGFR 96 >60 mL/min/1.73 m2 02/22/2024 11:00 EDT [facility] Blood VENOUS BLOOD / Unknown Venipuncture / Unknown 02/22/2024 10:13 EDT 02/22/2024 10:49 EDT us Simona Cheng DO CHEMISTRY & BLOOD GAS ORDERABLES Final Result [facility] [address] [place] [address] * HTLV I/II AB CONFIRMATION (02/22/2024 10:13 EDT) HTLV-I/-II Ab Confirmation, S Negative Negative 02/27/2024 13:39 EDT [facility] Comment: Confirmatory test is the definitive test for HTLV-I/-II infection status. ADDITIONAL INFORMATION This test was developed and its performance characteristics determined by [facility] in a manner consistent with CLIA requirements. This test has not been cleared or approved by the U.S. Food and Drug Administration. Test Performed by: [facility] [place] [id number] [place] [address] Manipulative Therapy Specialist: Kain Shay M.D. Ph.D.; CLIA# [id number] HTLV-I/-II Bands Not Reported 02/27/2024 13:39 EDT [facility] HTLV-I/-II Discrimination Not Reported 02/27/2024 13:39 EDT [facility] Blood VENOUS BLOOD / Unknown Venipuncture / Unknown 02/22/2024 10:13 EDT 02/22/2024 10:32 EDT Matilda Melton MD IMMUNOLOGY AND SEROLOGY O RDERABLES Final Result Performing Organization Address [facility] de Phone Number [facility] [address] [place] [address] * (ABNORMAL) PYRIDOXAL 5 PHOSPHATE (PLP), PLASMA (02/22/2024 10:13 EDT) Pyridoxal 5-Phosphate (PLP), P 4(L) 5 - 50 mcg/L 02/27/2024 11:26 EDT [facility] Comment: ADDITIONAL INFORMATION This test was developed and its performance characteristics determined by [facility] in a manner consistent with CLIA requirements. This test has not been cleared or approved by the U.S. Food and Drug Administration. Test Performed by: [facility] [address] [place] [address] Manipulative Therapy Specialist: Kain Shay M.D. Ph.D.; CLIA# [id number] Blood VENOUS BLOOD / Unknown Venipuncture / Unknown 02/22/2024 10:13 EDT 02/22/2024 10:32 EDT Matilda Melton MD CHEMISTRY & BLOOD GAS ORD ERABLES Final Result Performing Organization Address [facility] Co de Phone Number [facility] [address] [place] [address] * (ABNORMAL) VITAMIN D (25,OH) (02/22/2024 10:13 EDT) 25OH Vitamin D Tot 26(L) 30 - 100 ng/mL 02/24/2024 11:17 EDT [facility] Comment: Vitamin D 25,OH Interpretive Ranges: Deficiency: ??<10.0 ng/mL Insufficiency: ??10.0 - 30.0 ng/mL Sufficiency: ??30.0 - 100.0 ng/mL Toxicity: ??>100.0 ng/mL Blood VENOUS BLOOD / Unknown Venipuncture / Unknown 02/22/2024 10:13 EDT 02/22/2024 10:49 EDT Matilda Melton MD CHEMISTRY & BLOOD GAS ORD ERABLES Final Result Performing Organization Address City/[facility]/ZIP Co de Phone Number [facility] [address] [place] [phone] * VITAMIN E, SERUM (02/22/2024 10:13 EDT) [facility] Vitamin E 5.8 5.5 - 17.0 mg/L 02/26/2024 11:25 EDT [facility] Comment: ADDITIONAL INFORMATION This test was developed and its performance characteristics determined by [facility] in a manner consistent with CLIA requirements. This test has not been cleared or approved by the U.S. Food and Drug Administration. Test Performed by: [facility] - [address] [address] Manipulative Therapy Specialist: Kain Shay M.D. Ph.D.; CLIA# [id number] Blood VENOUS BLOOD / Unknown Venipuncture / Unknown 02/22/2024 10:13 EDT 02/22/2024 10:32 EDT us Matilda Melton MD CHEMISTRY & BLOOD GAS ORD ERABLES Final Result Performing Organization Address [facility]/ZIP Co de Phone Number [facility] [address] [place] [address] * MISCELLANEOUS TEST, [place] (02/21/2024 17:31 EDT) Pathologist [facility] Miscellaneous Test, [place] SEE NOTE 02/28/2024 15:19 EDT [facility] Comment: Test ?Result ? Flag ??Unit ?? RefValue Biotin (Vitamin B7) ? 1551.3 ? pg/mL ??221.0- 3004.0 ? ADDITIONAL INFORMATION ?The performance characteristics of the listed assay was ?validated by [facility]. The [place] FDA has not ?approved or cleared this test. The results of this assay ?can be used for clinical diagnosis without FDA approval. ?[facility] is a CLIA certified, CAP accredited ?laboratory for performing high complexity assays such as ?this one. ?Test Performed by: ?[facility] ?[address] ?[place] [address] Blood VENOUS BLOOD / Unknown Venipuncture / Unknown 02/21/2024 17:31 EDT 02/21/2024 17:45 EDT us Matilda Melton MD CHEMISTRY & BLOOD GAS ORD ERABLES Final Result [facility] [address] [place] [address] * MISCELLANEOUS TEST, [place] (02/21/2024 17:31 EDT) Pathologist [facility] Miscellaneous Test, [place] SEE NOTE 02/26/2024 6:03 EDT [facility] Comment: Test ?Result ?Flag ??Unit ?? RefValue Vitamin B3 and Metabolites, P ??Nicotinic Acid (Niacin) ? <5.0 ?ng/mL ??Cutoff:<5.0 ??Nicotinamide ?13.8 ?ng/mL ??5.0-48.0 ?Nicotinuric Acid ?<5.0 ?ng/mL ??Cutoff:<5.0 ? ADDITIONAL INFORMATION ?Testing performed by Liquid Chromatography-Tandem Mass ?Spectrometry (LC-MS/MS) ?This test was developed and its performance characteristics ?determined by [facility] in a manner consistent with CLIA ?requirements. This test has not been cleared or approved by ?the U.S. Food and Drug Administration. ?Test Performed by: ?[facility] ?[address] [place] [address] ?Manipulative Therapy Specialist: Kain Shay M.D. Ph.D.; CLIA# [id number] Blood VENOUS BLOOD / Unknown Venipuncture / Unknown 02/21/2024 17:31 EDT 02/21/2024 17:45 EDT us Matilda Melton MD CHEMISTRY & BLOOD GAS ORD ERABLES Final Result [facility] [address] [place] [address] * MISCELLANEOUS TEST, [place] (02/21/2024 17:31 EDT) Pathologist [facility] Miscellaneous Test, [place] SEE NOTE 02/25/2024 9:48 EDT [facility] Comment: Test ? Result ?Flag ??Unit ?? RefValue Coenzyme Q10, Reduced and Total, P ??CoQ10 reduced ?440.1 ? mcg/L ??415-1480 ??CoQ10 Total ?470 ? mcg/L ??433-1532 ??CoQ10 % reduced ?94 ?% ?92-98 ?Interpretation ? SEE NOTE ?In this sample, the total coenzyme Q10 concentration as ?well as the ratio of reduced to oxidized coenzyme Q10 were ?in the normal range. ? ADDITIONAL INFORMATION ?High-Performance Liquid Chromatography (HPLC) with ?Electrochemical Detection ?This test was developed and its performance characteristics ?determined by [facility] in a manner consistent with CLIA ?requirements. This test has not been cleared or approved by ?the U.S. Food and Drug Administration. ?Test Performed by: ?[facility] ?[address] [place] [address] ?Manipulative Therapy Specialist: Kain Shay M.D. Ph.D.; CLIA# [id number] Blood VENOUS BLOOD / Unknown Venipuncture / Unknown 02/21/2024 17:31 EDT 02/21/2024 17:39 EDT us Matilda Melton MD CHEMISTRY & BLOOD GAS ORD ERABLES Final Result Performing Organization Address [facility]/ZIP Co de Phone Number [facility] [address] [place] [phone] * POCT GLUCOSE, INTERFACED (02/21/2024 14:17 EDT) Glucose, POC 86 70 - 100 mg/dL 02/21/2024 14:19 EDT [facility] HN LAB POC COMMENT (GLUCOSE) Test Performed by Nursing Services 02/21/2024 14:19 EDT [facility] Blood CAPILLARY BLOOD / Unknown 02/21/2024 14:17 EDT 02/21/2024 14:19 EDT us Socorro Soto DO POINT OF CARE TEST ORDERAB LES Final Result Performing Organization Address City/[facility]/ZIP Co de Phone Number [facility] [address] [place] [phone] * XR CHEST PORTABLE 1 VIEW (02/21/2024 9:29 EDT) Anatomical Region Laterality Modality Computed Radiogr aphy 02/21/2024 9:42 EDT Impressions 02/21/2024 9:42 EDT No acute abnormality. [id number] Narrative 02/21/2024 9:42 EDT XR CHEST PORTABLE 1 VIEW ??02/21/2024 9:20 AM Clinical History/comments: hypotension, tachycardia; Comparisons: None. Technique: AP view of the chest. Findings: The lungs are clear aside from platelike atelectasis or scarring at the base of the left lung. There is no evidence of pleural disease or pneumothorax although neither is entirely excluded on this non-upright study. The cardiac silhouette and pulmonary vascularity are normal. The skeleton is unremarkable for age. Procedure Note Zackery Mcfarlane MD - 02/21/2024 XR CHEST PORTABLE 1 VIEW 02/21/2024 9:20 AM Clinical History/comments: hypotension, tachycardia; Comparisons: None. Technique: AP view of the chest. Findings: The lungs are clear aside from platelike atelectasis or scarring at thebase of the left lung. There is no evidence of pleural disease orpneumothorax although neither is entirely excluded on this non-uprightstudy. The cardiac silhouette and pulmonary vascularity are normal. Theskeleton is unremarkable for age. IMPRESSION No acute abnormality. [id number] us Estela Herman MD IMG DIAGNOSTIC IMAGING ORDERA BLES Final Result * EKG 12-LEAD (02/21/2024 9:14 EDT) 02/21/2024 9:14 EDT Narrative [facility] E[facility] - 02/21/2024 15:53 EDT ? [facility] ? Test Date: ?2024-02-21 Pat Name: ? YNES WHITE ? Department: ?? [facility] [address] ? Room: ? M5411 Gender: ? Female ? 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 [id number] : ?1970 ? Requested By: BATSHEVA ESTELA Order Number: [id number] ? Reading MD: ?? ANA LOBEL MD ? Measurements Intervals ?[place] ? Rate: ? 106 ?P: ?55 PA: ? 135 ?QRS: ?6 QRSD: ? 76 ? T: ?79 QT: ? 356 ? QTc: ?473 ? Interpretive Statements SINUS TACHYCARDIA POSSIBLE RIGHT VENTRICULAR CONDUCTION DELAY NONSPECIFIC T-WAVE ABNORMALITY ABNORMAL RHYTHM ECG Automated Interpretation. ??Provider Interpretation to follow. Compared to ECG 02/14/2024 10:56:10 T-wave abnormality now present Ventricular premature complex(es) no longer present I reviewed the tracing and have either agreed or edited the findings in this report. Electronically Signed On 02-21-2024 15:53:32 EDT by ANA MCKEON MD. 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 Provider Interpretation to follow. Compared to ECG 02/14/2024 10:56:10 T-wave abnormality now present Ventricular premature complex(es) no longer present I reviewed the tracing and have either agreed or edited the findings inthis report. Electronically Signed On 02-21-2024 15:53:32 EDT by ANA PAYTON. us Estela Herman MD CARDIAC ECG ORDERABLES Final Result [facility] * DOUBLE STRANDED DNA ANTIBODY, IGG (02/21/2024 6:50 EDT) dsDNA Ab, IgG <22.0 <27.0 IU/mL 02/24/2024 12:40 EDT [facility] Comment: Negative: <27.0 IU/mL Indeterminate: 27.0 - 35.0 IU/mL Positive: >35.0 IU/mL Results were obtained with Smartzer[employer] Lot18 dsDNA chemiluminescent immunoassay. Values obtained with different manufacturers' assay methods may not be used interchangeably. Blood VENOUS BLOOD / Unknown Venipuncture / Unknown 02/21/2024 6:50 EDT 02/21/2024 7:55 EDT us Matilda Melton MD IMMUNOLOGY AND SEROLOGY O RDERABLES Final Result Performing Organization Address City/[facility]/ZIP Co de Phone Number [facility] [address] [place] [address] * RHEUMATOID FACTOR (02/21/2024 6:50 EDT) [facility] Rheumatoid Factor <8.6 <12.0 IU/mL 02/21/2024 18:02 EDT [facility] Blood VENOUS BLOOD / Unknown Venipuncture / Unknown 02/21/2024 6:50 EDT 02/21/2024 7:55 EDT us Matilda Melton MD CHEMISTRY & BLOOD GAS ORD ERABLES Final Result Performing Organization Address [facility] de Phone Number [facility] [address] [place] [address] * MAGNESIUM (02/21/2024 6:50 EDT) [facility] Magnesium 1.7 1.7 - 2.8 mg/dL 02/21/2024 8:26 EDT [facility] Blood VENOUS BLOOD / Unknown Venipuncture / Unknown 02/21/2024 6:50 EDT 02/21/2024 7:55 EDT us Simona Cheng DO CHEMISTRY & BLOOD GAS ORDERABLES Final Result Performing Organization Address [facility]/ZIP Co de Phone Number [facility] [address] [place] [address] * (ABNORMAL) BASIC METABOLIC PANEL (BMP) (02/21/2024 6:50 EDT) Sodium 134(L) 136 - 145 mmol/L 02/21/2024 8:26 T [facility] Potassium 4.3 3.5 - 5.0 mmol/L 02/21/2024 8:26 [facility] Chloride 104 96 - 110 mmol/L 02/21/2024 8:26 [facility] CO2 Total 21(L) 22 - 32 mmol/L 02/21/2024 8:26 [facility] Anion Gap 9 5 - 14 mmol/L 02/21/2024 8:26 [facility] Glucose 87 70 - 99 mg/dl 02/21/2024 8:26 [facility] Calcium 9.1 8.5 - 10.5 mg/dL 02/21/2024 8:26 [facility] BUN 10 10 - 26 mg/dL 02/21/2024 8:26 [facility] Creatinine 0.70 0.52 - 1.04 mg/dL 02/21/2024 8:26 [facility] eGFR 101 >60 mL/min/1.73 m2 02/21/2024 8:26 [facility] Blood VENOUS BLOOD / Unknown Venipuncture / Unknown 02/21/2024 6:50 EDT 02/21/2024 7:55 EDT us Simona Cheng DO CHEMISTRY & BLOOD GAS ORDERABLES Final Result [facility] [address], [place] [phone] * (ABNORMAL) COMPLETE BLOOD COUNT (02/21/2024 6:50 EDT) WBC 3.10(L) 4.00 - 12.40 K/cmm 02/21/2024 7:47 EDT [facility] RBC 3.32(L) 3.86 - 5.04 M/cmm 02/21/2024 7:47 EDT [facility] Hemoglobin 11.4(L) 11.6 - 15.2 g/dL 02/21/2024 7:47 EDT [facility] HCT 32.8(L) 34.9 - 44.4 % 02/21/2024 7:47 EDT [facility] MCV 99(H) 81 - 98 fL 02/21/2024 7:47 T [facility] MCH 34.3(H) 26.7 - 33.3 pg 02/21/2024 7:47 EDT [facility] MCHC 34.8 32.1 - 35.9 g/dL 02/21/2024 7:47 T [facility] RDW-CV 14.9(H) <14.7 % 02/21/2024 7:47 T [facility] RDW-SD 53.7(H) <50.4 fl 02/21/2024 7:47 T [facility] PLT 200 141 - 377 K/cmm 02/21/2024 7:47 [facility] MPV 10.8 9.5 - 12.7 fL 02/21/2024 7:47 T [facility] Blood VENOUS BLOOD / Unknown Venipuncture / Unknown 02/21/2024 6:50 EDT 02/21/2024 7:35 EDT us Simona Cheng DO HEMATOLOGY & PF4 ORDERABLES Shannon l Result [facility] [address], [place] [id number] * (ABNORMAL) THIAMIN (VITAMIN B1), WB (02/21/2024 6:50 EDT) Pathologist [facility] Thiamin (Vitamin B1), WB 232(H) 70 - 180 nmol/L 02/26/2024 17:36 EDT [facility] Comment: ADDITIONAL INFORMATION This test was developed and its performance characteristics determined by [facility] in a manner consistent with CLIA requirements. This test has not been cleared or approved by the U.S. Food and Drug Administration. Test Performed by: [facility] [address] [place] [address] Manipulative Therapy Specialist: Kain Shay M.D. Ph.D.; CLIA# [id number] Blood VENOUS BLOOD / Unknown Venipuncture / Unknown 02/21/2024 6:50 EDT 02/21/2024 7:46 EDT us Matilda Melton MD CHEMISTRY & BLOOD GAS ORD ERABLES Final Result [facility] [address] [place] [address] * EMG/NERVE CONDUCTION STUDY (02/20/2024 14:49 EDT) [facility] 02/20/[facility]24 14:49 EDT Shawn Cabrera MD ? 02/20/2024 15:21 ?? Department of Neurological Sciences Neuromuscular EMG Lab History: This is a 54-year-old woman seen in electrodiagnostic and neuromuscular consultation to evaluate symptoms of progressive upper and lower extremity sensory loss, possible weakness, falls. The patient has difficulty providing a comprehensive history today. ??Over the last 3 weeks she appears to have developed progressive sensory and motor dysfunction which resulted in a fall, left ankle fracture, and progressive disability. ??She is currently unable to move outside of the bed. ??She notes that both legs are numb up to at least the level of the waist and she has difficulty feeling things with her hands. ??She does not believe that she has full cognitive function currently and reports that she is having difficulty understanding what other people are saying to her. ??Patient reports that she lives alone but has a sister who lives close by. ??She was initially admitted to [facility] on February 17, 2024. ??At that time, she was discovered to have vitamin B12 deficiency. ??In addition, she had an EMG nerve conduction study by my colleague, Dr. Polk, which showed widespread loss of sensory potentials with preserved motor potentials in the upper and lower extremity. ??She also had an LP which showed elevated CSF protein at 200. ??She was given a single dose of vitamin B12 and started on IVIG. ??Additional labs were sent for inflammatory radicular neuropathies. The patient has difficulty providing history but does not believe that she had a preceding illness. Clinical Exam: This is a 54-year-old woman who is in a stretcher She is alert and oriented to the [facility] but not to the hospital or Medical Center. ??She is unable to tell me her town of residence. ??She also has significant difficulty describing the length of her symptoms. Language: She has mild nasal dysarthria. ??In addition, she is unable to follow simple commands with her upper extremities. ??She was able to follow central commands in the face with ability to close and open eyes on command. Motor: Normal bulk of the upper and lower extremities without evidence of fasciculations. ??Patient has difficulty participating in the clinical exam. ??She is able to give partial effort with shoulder abduction, elbow flexion/extension, wrist flexion/extension, finger spread, hip flexion, hip extension, ankle dorsiflexion bilaterally. ??She has a significant amount of giveway and I am unable to fully grade strength testing. Sensory: The patient does appear to have some component of athetosis in the upper extremities. ??She has difficulty holding her arm up on the stretcher when I removed the bedside guardrail. ??Similarly, she is unable to fully sense the position of her lower extremities. Absent pin sensation the bilateral lower extremities to the waist and bilateral upper extremities to above the elbow. ??Return of normal pin sensation in the upper chest. ??Absent vibration at toes, ankles, knees, index finger, and elbows. Reflexes: Absent bilateral biceps, triceps, brachioradialis, knee jerks. ?? Absent right ankle jerk. ??Unable to test left ankle jerk. ??Toes downgoing on the right. Coordination: Difficult to test to the degree of inability to follow commands. Gait: Unable to test due to sensory loss and possible weakness For waveforms/values of EMG/nerve conduction study please see accompanying scanned document in the scans/media tab in EPIC. Electrodiagnostic Findings: Nerve Conduction: 1. ??Unable to evoke the right sural, superficial peroneal, ulnar, median, radial, and medial antebrachial cutaneous nerve or the forearm sensory responses 2. ??Normal right median, ulnar, peroneal, and tibial motor responses 3. ??Normal right peroneal, tibial, median, and ulnar F-wave late responses Needle EM. ??Patient has isolated reduced activation in the right deltoid, first dorsal interosseous, and vastus medialis. ??There is no abnormal spontaneous activity in these muscles in the limited voluntary motor units appreciated are of normal morphology 2. ??Normal right tibialis anterior Electrodiagnostic Impression: This is an abnormal study. 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 ??Alternatively, these could be consistent with a severe axonal sensory polyneuropathy. ??The study does not show evidence of a demyelinating polyradiculoneuropathy. ??In addition, despite the degree of inability to move the limbs, the patient showed no evidence of active denervation in the upper or lower extremities nor evidence of reduced recruitment. In comparison to the study performed at [facility] on February 18, 2024, today's exam is similar. 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 ??I appreciated areflexia in the upper and lower extremities, inability to feel the tuning fork in the upper and lower extremities, severe loss of pin function, and pseudo athetosis. ?? It is unclear if the patient has true motor weakness or inability to move the limbs because she cannot feel them. ??It was difficult for her to coordinate movements. ??She was also not following commands appropriately and appears to have some component of cognitive dysfunction as well. The differential diagnosis of a sensory neuronopathy includes autoimmune etiologies, paraneoplastic syndrome, Sjogren's syndrome, and idiopathic. ??In addition, the patient was noted to have a very low vitamin B12 level and did elevated antiintrinsic factor antibody at [facility]. ??Given the concurrent peripheral nerve findings and cognitive dysfunction, severe vitamin B12 deficiency is also a consideration the patient's differential diagnosis. The patient does also have elevated CSF protein suggesting an acute autoimmune process. Workup recommendations: 1. ??Please see if more sensitive Sjogren's antibody testing can be sent from [facility] blood work. (Anti-Ro60 and Anti-Ro52). Please also see if you can add anti-dsDNA and RF. 2. ??Send serum encephalopathy paraneoplastic profile from [facility] serum (ENS2 Encephalopathy, Autoimmune/Paraneoplastic Evaluation, Serum). [place] should already have serum for other requested testing. 3. ??Follow results of [place] CIDP panel 4. ??Exclude malignancy 5. ??Recommend establishing the patient's neurological baseline and how far off, her cognitive function is from that baseline. ?? Cognitive workup per the primary team. Treatment recommendations: 1. ??Agree with treatment with IVIG 2 g/kg divided over 5 days 2. ??Recommend supplementation with intramuscular vitamin B12 1000 mcg daily for 7 days then weekly for 8 weeks then monthly. ??I do not recommend checking antiintrinsic factor at this time as current IVIG administration will impact the results of this test. Since the patient's clinical presentation could be consistent with severe B12 deficiency I recommend the supplementation empirically. 3. ??Aggressive physical and occupational therapy Will need to observe the patient over the next days to weeks to see how much function returns in the setting of the above interventions. ??Sensory neuronopathy is often have limited improvement, even with treatment of an autoimmune etiology. ?? Aggressive rehabilitation is likely to be needed in this circumstance. Thank you for allowing me to participate in the care of your patient. Please don't hesitate to call with any questions. Shawn Cabrera MD 02/20/2024 14:49 Professor of Neurological Sciences Neurology Attending Physician ABPN Board Certified, Neurology and Neuromuscular Medicine ABEM Board Certified, EMG us Matilda Melton MD PROCEDURE/MINOR SURGICAL ORDERABLES Edited Result - Final [facility] POINT OF CARE * (ABNORMAL) MAGNESIUM (02/20/2024 7:36 EDT) Magnesium 1.6(L) 1.7 - 2.8 mg/dL 02/20/2024 8:40 EDT [facility] Blood VENOUS BLOOD / Unknown Venipuncture / Unknown 02/20/2024 7:36 EDT 02/20/2024 8:10 EDT Simona Cheng DO CHEMISTRY & BLOOD GAS ORDERABLES Final Result [facility] [address] [place] [address] * (ABNORMAL) BASIC METABOLIC PANEL (BMP) (02/20/2024 7:36 EDT) Sodium 135(L) 136 - 145 mmol/L 02/20/2024 8:40 EDT [facility] Potassium 4.3 3.5 - 5.0 mmol/L 02/20/2024 8:40 EDT [facility] Chloride 105 96 - 110 mmol/L 02/20/2024 8:40 EDT [facility] CO2 Total 20(L) 22 - 32 mmol/L 02/20/2024 8:40 EDT [facility] Anion Gap 10 5 - 14 mmol/L 02/20/2024 8:40 EDT [facility] Glucose 100(H) 70 - 99 mg/dl 02/20/2024 8:40 T [facility] Calcium 9.1 8.5 - 10.5 mg/dL 02/20/2024 8:40 [facility] BUN 11 10 - 26 mg/dL 02/20/2024 8:40 T [facility] Creatinine 0.60 0.52 - 1.04 mg/dL 02/20/2024 8:40 [facility] eGFR 105 >60 mL/min/1.73 m2 02/20/2024 8:40 T [facility] Blood VENOUS BLOOD / Unknown Venipuncture / Unknown 02/20/2024 7:36 EDT 02/20/2024 8:10 EDT Simona Cheng DO CHEMISTRY & BLOOD GAS ORDERABLES Final Result [facility] [address] [place] [address] * (ABNORMAL) COMPLETE BLOOD COUNT (02/20/2024 7:36 EDT) WBC 2.37(L) 4.00 - 12.40 K/cmm 02/20/2024 8:18 EDT [facility] RBC 3.18(L) 3.86 - 5.04 M/cmm 02/20/2024 8:18 T [facility] Hemoglobin 11.1(L) 11.6 - 15.2 g/dL 02/20/2024 8:18 T [facility] HCT 30.9(L) 34.9 - 44.4 % 02/20/2024 8:18 T [facility] MCV 97 81 - 98 fL 02/20/2024 8:18 T [facility] MCH 34.9(H) 26.7 - 33.3 pg 02/20/2024 8:18 [facility] MCHC 35.9 32.1 - 35.9 g/dL 02/20/2024 8:18 [facility] RDW-CV 14.7(H) <14.7 % 02/20/2024 8:18 [facility] RDW-SD 52.4(H) <50.4 fl 02/20/2024 8:18 [facility] PLT 169 141 - 377 K/cmm 02/20/2024 8:18 [facility] MPV 10.5 9.5 - 12.7 fL 02/20/2024 8:18 [facility] Blood VENOUS BLOOD / Unknown Venipuncture / Unknown 02/20/2024 7:36 EDT 02/20/2024 8:06 EDT us Simona Cheng DO HEMATOLOGY & PF4 ORDERABLES Shannon l Result [facility] [address] [place] [address] * MISCELLANEOUS TEST, [place] (02/15/2024 6:39 EDT) Pathologist [facility] Miscellaneous Test, [place] SEE NOTE 02/26/2024 14:21 EDT [facility] Comment: Test ?Result ?Flag ??Unit ??RefValue Ro52 and Ro60 Antibodies, IgG, S ??Ro52 Antibody, IgG, S ? <5.0 ?CU ?<20 ?Ro60 Antibody, IgG, S ? <5.0 ?CU ?<20 ?Test Performed by: ?[facility] ?[address] [place] [address] ?Manipulative Therapy Specialist: Kain Shay M.D. 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 Ataxia Lack of coordination Vitamin B deficiency Unspecified vitamin B deficiency Nutritional deficiency Unspecified nutritional deficiency Encephalopathy Encephalopathy, unspecified Hypomagnesemia Disorders of magnesium metabolism Depression, unspecified depression type Anxiety Anxiety state, unspecified PTSD (post-traumatic stress disorder) Posttraumatic stress disorder History of cerebral venous sinus thrombosis Personal history of venous thrombosis and embolism Acute cystitis without hematuria Acute cystitis Primary hypertension Unspecified essential hypertension Sensory neuronopathy Unspecified nerve root and plexus disorder documented in this encounter Admitting Diagnoses Diagnosis 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 Administered Medications Inactive Administered Medications - up to 3 most recent administrations Medication Order MAR Action Action Date Dose Rate Site acetaminophen (TYLENOL) tablet 325 mg 325 mg, oral, EVERY 4 HOURS PRN, Starting on Sat02/20/24 at 0046, Until Sat02/25/24 at 1317, Pain, Routine Given 02/24/2024 22:16 EDT 325 mg Given 02/24/2024 9:57 EDT 325 mg Given 02/23/2024 13:42 EDT 325 mg acetaminophen (TYLENOL) tablet 650 mg 650 mg, oral, DAILY, 5 doses, First dose on Tiffanie 02/20/24 at 0900, Last dose on Sat02/24/24 at 0900, Routine Given 02/22/2024 8:14 EDT 650 mg Given 02/21/2024 8:07 EDT 650 mg Given 02/20/2024 9:22 EDT 650 mg apixaban (ELIQUIS) tablet 2.5 mg 2.5 mg, oral, 2 TIMES DAILY, First dose (after last modification) on Sat02/20/24 at 0900, Until Discontinued, Routine Given 02/25/2024 9:01 EDT 2.5 mg Given 02/24/2024 21:40 EDT 2.5 mg Given 02/24/2024 9:56 EDT 2.5 mg bisacodyL (DULCOLAX) suppository 10 mg 10 mg, rectal, DAILY PRN, Starting on Tiffanie 02/20/24 at 0101, Until Sat02/25/24 at 1317, Constipation, Routine Given 02/23/2024 14:32 EDT 10 mg blood thinner patient education booklet 1 Each 1 Each, other, Once (Without Time Specified), 1 dose, Starting on Sat02/20/24 at 0109, Until Sat02/25/24 at 1317, Routine buPROPion (WELLBUTRIN SR) SR tablet 100 mg 100 mg, oral, 2 TIMES DAILY, First dose on Sat02/20/24 at 0900, Until Discontinued, Routine Given 02/25/2024 9:01 EDT 10 0 mg Given 02/24/2024 21:26 EDT 100 mg Given 02/24/2024 9:58 EDT 100 mg cholecalciferol (Vitamin D3) tablet 1,000 Units 1,000 Units, oral, DAILY, First dose on Sat02/24/24 at 1415, Until Discontinued, Routine Given 02/25/2024 9:01 EDT 1,000 Units Given 02/24/2024 14:45 EDT 1,000 Units cyanocobalamin (VITAMIN B12) injection 1,000 mcg 1,000 mcg, intramuscular, DAILY, 7 doses, First dose on Sat02/21/24 at 0900, Last dose on Sat02/27/24 at 0900, Routine Given 02/25/2024 9:00 EDT 1,000 mcg Given 02/24/2024 10:09 EDT 1,000 mcg Given 02/23/2024 9:21 EDT 1,000 mcg diphenhydrAMINE (BENADRYL) capsule 25 mg 25 mg, oral, DAILY, 5 doses, First dose on Sat02/20/24 at 0900, Last dose on Sat02/24/24 at 0900, Routine Given 02/22/2024 8:15 EDT 25 mg Given 02/20/2024 9:22 EDT 25 mg diphenhydrAMINE (BENADRYL) injection 50 mg 50 mg, intravenous, PRN, 1 dose, Starting on Sat02/20/24 at 0900, Until Sat02/21/24 at 0807, administer for rash, itching and/or hives associated with a mild to moderate infusion reaction OR after epinephrine IM for an anaphylactic reaction., Routine Given 02/21/2024 8:07 EDT 50 mg EPINEPHrine (ADRENALIN) injection 0.3 mg 0.3 mg, intramuscular, PRN, 1 dose, Starting on Sat02/20/24 at 0900, Until Sat02/25/24 at 1317, for hypotension and/or airway obstruction symptoms related to an infusion or allergic reaction., Routine folic acid (FOLVITE) tablet 1 mg 1 mg, oral, DAILY, First dose on Sat02/20/24 at 0900, Until Discontinued, Routine Given 02/25/2024 9:01 EDT 1 mg Given 02/24/2024 9:57 EDT 1 mg Given 02/23/2024 9:20 EDT 1 mg immune globulin (PRIVIGEN) 10 % injection 30 g 30 g, intravenous, DAILY, 3 doses, First dose on Tiffanie 02/20/24 at 0900, Last dose on Sat02/22/24 at 0900, Routine New Bag 02/22/2024 9:21 EDT 30 g 24.3 mL/hr Rate Change 02/21/2024 13:46 EDT 170 mL/hr Rate Change 02/21/2024 13:32 EDT 145 mL/hr lactated ringers (LR) infusion at 100 mL/hr, 500 mL, intravenous, CONTINUOUS, Starting on Sat02/24/24 at 0145, Until Sat02/24/24 at 0712, Routine Rate Documented 02/24/2024 5:10 EDT 100 mL/hr New Bag 02/24/2024 2:13 EDT 500 mL 100 mL/hr lactated ringers BOLUS 500 mL 500 mL, intravenous, NOW X1, 1 dose, On Sat02/24/24 at 0145, Routine New Bag 02/24/2024 1:32 EDT 500 mL lactated ringers BOLUS 500 mL 500 mL, intravenous, NOW X1, 1 dose, On Sat02/24/24 at 2215, Routine New Bag 02/24/2024 22:50 EDT 500 mL melatonin tablet 5 mg 5 mg, oral, AT BEDTIME, First dose on Sat02/20/24 at 2100, Until Discontinued, Routine Given 02/24/2024 21:26 EDT 5 mg Given 02/23/2024 20:56 EDT 5 mg Given 02/22/2024 21:14 EDT 5 mg methocarbamoL (ROBAXIN) tablet 500 mg 500 mg, oral, 2 TIMES DAILY PRN, Starting on Sat02/20/24 at 0102, Until Sat02/25/24 at 1317, Pain, Routine Given 02/22/2024 9:27 EDT 500 mg Given 02/22/2024 0:26 EDT 500 mg Given 02/21/2024 16:33 EDT 500 mg methylPREDNISolone sod suc(PF) (SOLU-MEDROL) injection 100 mg 100 mg, intravenous, PRN, 1 dose, Starting on Sat02/20/24 at 0900, Until Sat02/25/24 at 1317, Routine [id number] fum-folic ac 7.5 mg iron-400 mcg tablet 1 Tablet 1 Tablet, oral, DAILY, First dose on Sat02/23/24 at 0900, Until Discontinued, Routine Given 02/25/2024 9:01 EDT 1 Tablet Given 02/24/2024 9:56 EDT 1 Tablet Given 02/23/2024 9:21 EDT 1 Tablet OLANZapine (ZYPREXA) tablet 20 mg 20 mg, oral, AT BEDTIME, First dose on Sat02/20/24 at 2100, Until Discontinued, Routine Given 02/24/2024 21:26 EDT 2 0 mg Given 02/23/2024 20:56 EDT 20 mg Given 02/22/2024 21:15 EDT 20 mg pantoprazole (PROTONIX) tablet 40 mg 40 mg, oral, DAILY, First dose on Sat02/20/24 at 0900, Until Discontinued, Routine Given 02/25/2024 9:01 EDT 40 mg Given 02/24/2024 9:57 EDT 40 mg Given 02/23/2024 9:21 EDT 40 mg polyethylene glycol 3350 (MIRALAX) packet 17 g 17 g, oral, DAILY, First dose on Sat02/20/24 at 0900, Until Discontinued, Routine Given 02/23/2024 9:20 EDT 17 g Given 02/22/2024 8:21 EDT 17 g Given 02/20/2024 8:17 EDT 17 g Prazosin (MINIPRESS) capsule 1 mg 1 mg, oral, AT BEDTIME, First dose on Sat02/21/24 at 2100, Until Discontinued, Routine Given 02/24/2024 21:26 EDT 1 mg Given 02/23/2024 20:56 EDT 1 mg Given 02/22/2024 21:15 EDT 1 mg pregabalin (LYRICA) capsule 100 mg 100 mg, oral, 2 TIMES DAILY, First dose on Sat02/20/24 at 0900, Until Discontinued, Routine Given 02/25/2024 9:01 EDT 10 0 mg Given 02/24/2024 21:25 EDT 100 mg Given 02/24/2024 9:58 EDT 100 mg propRANolol (INDERAL) tablet 10 mg 10 mg, oral, 3 TIMES DAILY PRN, Starting on Sat02/20/24 at 0102, Until Sat02/25/24 at 1317, Other, anxiety, Routine senna (SENOKOT) tablet 1 Tablet 1 Tablet, oral, AT BEDTIME, First dose on Sat02/20/24 at 0115, Until Discontinued, Routine Given 02/23/2024 20:5 6 EDT 1 Tablet Given 02/22/2024 21:14 EDT 1 Tablet Given 02/21/2024 20:36 EDT 1 Tablet sodium chloride 0.9 % BOLUS 1,000 mL 1,000 mL, intravenous, NOW X1, 1 dose, On Sat02/21/24 at 0945, Routine New Bag 02/21/2024 9:30 EDT 1,000 mL thiamine (VITAMIN B-1) 500 mg in sodium chloride (NS) 0.9 % 50 mL IVPB 500 mg, intravenous, Administer over 15 Minutes, 3 TIMES DAILY, First dose on Sat02/20/24 at 2100, Until Discontinued, Routine Given 02/24/2024 22:09 EDT 500 mg Given 02/24/2024 13:39 EDT 500 mg Given 02/24/2024 10:09 EDT 500 mg documented in this encounter Discontinued Medications Medication Sig Discontinue Reason Start Date End Da te melatonin 5 mg tablet Take 2 Tablets by mouth at bedtime. 02/25/2024 acetaminophen (TYLENOL) 500 mg tablet Take 2 Tabs by mouth every 6 hours. 07/14/2020 02/25/2024 buPROPion (WELLBUTRIN SR) 200 mg SR tablet Take 1 Tablet by mouth daily. 03/29/2022 02/25/2024 methocarbamoL (ROBAXIN) 500 mg tablet Take 1 Tablet by mouth 2 times daily. 02/25/2024 documented as of this encounter Active and Recently Administered Medications Times are shown in EDT. Scheduled Medication Order 02/23/2024 02/24/2024 02/25/2024 apixaban (ELIQUIS) tablet 2.5 mg 2.5 mg, oral, 2 TIMES DAILY, First dose (after last modification) on Sat02/20/24 at 0900, Until Discontinued, Routine 0920 (Given - Provider: Cecelia Miller RN)2055 (Given - Provider: Shawn Leggett) 0956 (Given - Provider: Uriah Kumari)2139 (Given - Provider: Sridevi Osuna RN) 0901 (Given - Provider: Josette Morales) blood thinner patient education booklet 1 Each 1 Each, other, Once (Without Time Specified), 1 dose, Starting on Sat02/20/24 at 0109, Until Sat02/25/24 at 1317, Routine buPROPion (WELLBUTRIN SR) SR tablet 100 mg 100 mg, oral, 2 TIMES DAILY, First dose on Sat02/20/24 at 0900, Until Discontinued, Routine 0920 (Given - Provider: Cecelia Miller RN)2055 (Given - Provider: Shawn Leggett) 0958 (Given - Provider: Uriah Kumari)2125 (Given - Provider: Sridevi Osuna RN) 0901 (Given - Provider: Josette Morales) cholecalciferol (Vitamin D3) tablet 1,000 Units 1,000 Units, oral, DAILY, First dose on Sat02/24/24 at 1415, Until Discontinued, Routine 1445 (Given - Provider: Uriah Kumari) 0901 (Given - Provider: Josette Morales) cyanocobalamin (VITAMIN B12) injection 1,000 mcg 1,000 mcg, intramuscular, DAILY, 7 doses, First dose on Sat02/21/24 at 0900, Last dose on Sat02/27/24 at 0900, Routine 0921 (Given - Provider: Cecelia Miller RN) 1009 (Given - Provider: Uriah Kumari) 0900 (Given - Provider: Josette Morales) folic acid (FOLVITE) tablet 1 mg 1 mg, oral, DAILY, First dose on Sat02/20/24 at 0900, Until Discontinued, Routine 0920 (Given - Provider: Cecelia Miller RN) 0957 (Given - Provider: Uriah Kumari) 0901 (Given - Provider: Josette Morales) lactated ringers BOLUS 500 mL (COMPLETED) 500 mL, intravenous, NOW X1, 1 dose, On Sat02/24/24 at 0145, Routine 0132 (New Bag - Provider: Jaylyn Pelletier, [place]ALE[place]) lactated ringers BOLUS 500 mL (COMPLETED) 500 mL, intravenous, NOW X1, 1 dose, On Sat02/24/24 at 2215, Routine 2250 (New Bag - Provider: Sridevi Osuna, [place]) melatonin tablet 5 mg 5 mg, oral, AT BEDTIME, First dose on Tiffanie 02/20/24 at 2100, Until Discontinued, Routine 2055 (Given - Provider: Shawn Leggett) 2125 (Given - Provider: Sridevi Osuna RN) bpgihpfg-bti-cmcn fum-folic ac 7.5 mg iron-400 mcg tablet 1 Tablet 1 Tablet, oral, DAILY, First dose on Sat02/23/24 at 0900, Until Discontinued, Routine 09 (Given - Provider: Cecelia Miller RN) 0956 (Given - Provider: Uriah Kumari) 09 (Given - Provider: Josette Morales) OLANZapine (ZYPREXA) tablet 20 mg 20 mg, oral, AT BEDTIME, First dose on Tiffanie 02/20/24 at 2100, Until Discontinued, Routine 2055 (Given - Provider: Shwan Leggett) 2125 (Given - Provider: Sridevi Osuna RN) pantoprazole (PROTONIX) tablet 40 mg 40 mg, oral, DAILY, First dose on Tiffanie 02/20/24 at 0900, Until Discontinued, Routine 0921 (Given - Provider: Cecelia Miller RN) 0957 (Given - Provider: Uriah Kumari) 0901 (Given - Provider: Josette Morales) polyethylene glycol 3350 (MIRALAX) packet 17 g 17 g, oral, DAILY, First dose on Tiffanie 02/20/24 at 0900, Until Discontinued, Routine 0920 (Given - Provider: Cecelia Miller RN) 0900 (Not Given - Provider: Uriah Kumari - Reason: Order parameters not met) 0901 (Not Given - Provider: Josette Morales - Reason: Order parameters not met) Prazosin (MINIPRESS) capsule 1 mg 1 mg, oral, AT BEDTIME, First dose on Sat02/21/24 at 2100, Until Discontinued, Routine 2055 (Given - Provider: Shawn Leggett) 2125 (Given - Provider: Sridevi Osuna, [place]) pregabalin (LYRICA) capsule 100 mg 100 mg, oral, 2 TIMES DAILY, First dose on Sat02/20/24 at 0900, Until Discontinued, Routine 09 (Given - Provider: Cecelia Miller RN)2055 (Given - Provider: Shawn Leggett) 957 (Given - Provider: Uriah Kumari)2124 (Given - Provider: Sridevi Osuna, [place]) 09 (Given - Provider: Josette Morales) senna (SENOKOT) tablet 1 Tablet 1 Tablet, oral, AT BEDTIME, First dose on Sat02/20/24 at 0115, Until Discontinued, Routine 2055 (Given - Provider: Shawn Leggett) 2139 (Not Given - Provider: Sridevi Osuna RN - Reason: Patient/family refused) thiamine (VITAMIN B-1) 500 mg in sodium chloride (NS) 0.9 % 50 mL IVPB 500 mg, intravenous, Administer over 15 Minutes, 3 TIMES DAILY, First dose on Sat02/20/24 at 2100, Until Discontinued, Routine 0918 (Given - Provider: Cecelia Miller RN)1339 (Given - Provider: Tiffany Baker RN)2052 (Given - Provider: Shawn Leggett) 1009 (Given - Provider: Uriah Kmuari)1339 (Given - Provider: Uriah Kumari)220 (Given - Provider: Sridevi Osuna, [place]ALEA) 1048 (Not Given - Provider: Liliana Belcher RN - Reason: Loss of IV access) Continuous Medication Order 02/23/2024 02/24/2024 02/25/2024 lactated ringers (LR) infusion (CANCELED) at 100 mL/hr, 500 mL, intravenous, CONTINUOUS, Starting on Sat02/24/24 at 0145, Until Sat02/24/24 at 0712, Routine 0213 (New Bag - Provider: Jaylyn Pelletier, [place]ALEA)0510 (Rate Documented - Provider: Jaylyn Pelletier, [place])0655 (Completed - Provider: Jaylyn Pelletier RN) PRN Medication Order 02/23/2024 02/24/2024 02/25/2024 acetaminophen (TYLENOL) tablet 325 mg 325 mg, oral, EVERY 4 HOURS PRN, Starting on Tiffanie 02/20/24 at 0046, Until 02/25/24 at 1317, Pain, Routine 0921 (Given - Provider: Cecelia Miller RN)1342 (Given - Provider: Tiffany Baker, [place]) 0957 (Given - Provider: Uriah Kumari)2216 (Given - Provider: Sridevi Osuna, [place]) bisacodyL (DULCOLAX) suppository 10 mg 10 mg, rectal, DAILY PRN, Starting on Tiffanie 02/20/24 at 0101, Until Sat02/25/24 at 1317, Constipation, Routine 1432 (Given - Provider: Tiffany Baker, [place]) EPINEPHrine (ADRENALIN) injection 0.3 mg 0.3 mg, intramuscular, PRN, 1 dose, Starting on Tiffanie 02/20/24 at 0900, Until Sat02/25/24 at 1317, for hypotension and/or airway obstruction symptoms related to an infusion or allergic reaction., Routine methocarbamoL (ROBAXIN) tablet 500 mg 500 mg, oral, 2 TIMES DAILY PRN, Starting on Tiffanie 02/20/24 at 0102, Until Sat02/25/24 at 1317, Pain, Routine methylPREDNISolone sod suc(PF) (SOLU-MEDROL) injection 100 mg 100 mg, intravenous, PRN, 1 dose, Starting on Tiffanie 02/20/24 at 0900, Until Sat02/25/24 at 1317, Routine propRANolol (INDERAL) tablet 10 mg 10 mg, oral, 3 TIMES DAILY PRN, Starting on Tiffanie 02/20/24 at 0102, Until Sat02/25/24 at 1317, Other, anxiety, Routine documented in this encounter Orders Medications Ordered That Babak ht Not Have Been Administered Count Last Ordered Date First Ordered Date apixaban (ELIQUIS) tablet 5 mg 1 02/20/2024 blood thinner patient educat ion booklet 1 Each 1 02/20/2024 EPINEPHrine (ADRENALIN) injection 0.3 mg 1 02/20/2024 heparin injection 5,000 Units 1 02/20/2024 methylPREDNISolone sod suc(P F) (SOLU-MEDROL) injection 100 mg 1 02/20/2024 propRANolol (INDERAL) tablet 10 mg 1 2023 Consult Count Last Ordered Date First Orde red Date CONSULT NUTRITION 1 02/21/2024 OT Count Last Ordered Date First Orde red Date OT EVALUATION AND TREAT 1 02/20/2024 PT Count Last Ordered Date First Orde red Date PT EVALUATION AND TREAT 1 02/20/2024 IV Count Last Ordered Date First Orde red Date IV REQUEST 2 02/21/2024 Admission Count Last Ordered Date First Orde red Date ADMIT TO INPATIENT 1 02/20/2024 Transfer Count Last Ordered Date First Orde red Date CONSULT TRANSFER CENTER (TRA NSFER/CONSULT TO OTHER FACILITY) 1 02/24/2024 Discharge Count Last Ordered Date First Orde red Date DISCHARGE PATIENT 1 02/25/2024 documented in this encounter Care Teams Aviation Maintenance Instructor Relationship Specialty Start Date End Date Romario Hairston MD [facility] [place] [address] PCP - General 07/06/20 documented as of this encounter
--- OUTSIDE RECORDS SUMMARY | 2024-12-03 15:52 | XMS_ITS | Encounter Summary ---
Author Organization [facility] Address [address] [place] [address] Care Team Providers Care Commercial Fisher Name Role Phone Romario Hairston MD Primary Care Provider [phone]- [phone] Reason for Visit * Reason Comments Medications Refill Encounter Details Date Type Department Care Team (Late st Contact Info) Description 12/24/2023 Refill [facility] [address] [place] [id number] Brayan Polk MD [address] [place] [address] [place] [address] Medications Refill Social History Tobacco Use Types Packs/Day Years Used Date Smoking Tobacco: Every Day Cigarettes 0.3 15 Smokeless Tobacco: Never Alcohol Use Standard Drinks/Week Comments Never 0 (1 standard drink = 0.6 oz pur e alcohol) PHQ-2 Answer Date Recorded PHQ-2 SUBTOTAL 0 07/16/2020 Interpersonal Safety Answer Date Record ed Physically Hurt Never 06/26/2020 Verbally Threaten Not on file 06/26/2020 Comments Unknown Sex and Gender Information Value Date Recorded Sex Assigned at Not on file Legal Sex Female 17:42 EST Gender Identity Female 03/18/2020 17:54 EDT Sexual Orientation Not on file documented as of this encounter Functional Status * Are you deaf or do you have serious difficulty hearing? Answer Date of Assessment Author No 07/31/2022 18:20 EDT Afia Mejia RN * Are you blind or do you have serious difficulty seeing, even when wearing glasses? Answer Date of Assessment Author No 03/07/2022 13:33 EDT Jostin Chaudhary RN * Do you have serious difficulty walking or climbing stairs? (5 years old or older) Answer Date of Assessment Author Yes 03/07/2022 13:33 Jostin Henry RN * Do you have difficulty dressing or bathing? (5 years old or older) Answer Date of Assessment Author Yes 03/07/2022 13:33 Jostin Henry RN * Because of a physical, mental, or emotional condition, do you have difficulty doing errands alone such as visiting a doctor's office or shopping? (15 years old or older) Answer Date of Assessment Author Yes 03/07/2022 13:33 Jostin Henry RN documented as of this encounter Mental Status * Because of a physical, mental, or emotional condition, do you have serious difficulty concentrating, remembering, or making decisions? (5 years old or older) Answer Entry Date Author No 03/07/2022 13:33 Jostin Henry RN documented in this encounter Ordered Prescriptions Prescription Sig Dispense Quantity Refills Last Filled Start Date End Date tiZANidine (ZANAFLEX) 2 mg tablet Take 1 Tablet by mouth daily. 30 Tablet 3 01/14/2024 02/04/2024 methocarbamoL (ROBAXIN) 500 mg tablet TAKE 1 TABLET BY MOUTH TWICE DAILY 60 Tablet 2 12/25/2023 01/14/2024 documented in this encounter Miscellaneous Notes * Addendum Note - Vashti Grover RN - 01/14/2024 1057 ESTAddended by: VASHTI GROVER on: 01/14/2024 10:57 Modules accepted: Orders * Telephone Encounter - Vashti Grover RN - 01/13/2024 1243 EST I explained to Lucille, caregiver for mary grace, that insurance will not cover methocarbamol. I asked if Mary Grace is in any pain right now. Lucille said she is having trouble walking due to the pain in her legs and does not think she can go without some kind of pain reliever. Therefore we agreed to haveMary Grace try the tizanidine. Escript to pharmacy per Dr. Polk's note. * Telephone Encounter - Brayan Polk MD - 01/10/2024 0805 EST If she's willing to try an alternative, tizanidine 2mg twice a day. However alternatively she couldjust stop taking methocarbamol and see if her pain worsens. She's been taking it a while and it might be worth a trial of stopping it to see if it's still needed. * Telephone Encounter - Vashti Grover RN - 01/09/2024 1618 EST I received a note from pharmacy that pt's plan does not cover methocarbamol. The alternative is tizanidine. Please advise. * Telephone Encounter - Vashti Grover RN - 12/25/2023 0825 EST Per note on 11/12/2023, will refill this medication in anticipation of patient's visit in February 2024. Escript as requested. documented in this encounter Plan of Treatment Upcoming Encounters Date Type Department Care Team (Late st Contact Info) Description 03/04/2025 14:00 EDT Telemedicine [facility] Neu[facility] Clinic [address] [place] [id number] Brayan Polk MD [address] [facility] [place] [phone] 07/14/2025 14:30 EDT Office Visit [facility] Cancer [facility] Hematology & Oncology - [address] [id number] Evin Maria MD [address] [place] [address], [facility], [address] [place] [phone] documented as of this encounter Visit Diagnoses Not on filedocumented in this encounter Discontinued Medications Medication Sig Discontinue Reason Start Date End Da te methocarbamoL (ROBAXIN) 500 mg tablet Take 1 Tablet by mouth 2 times daily for 30 days. 11/12/2023 12/25/2023 methocarbamoL (ROBAXIN) 500 mg tablet TAKE 1 TABLET BY MOUTH TWICE DAILY Insurance does not cover 12/25/2023 01/14/2024 documented as of this encounter Care Teams Commercial Fisher Relationship Specialty Start Date End Date Romario Hairston MD [address] [place] [address] PCP - General 07/06/20 documented as of this encounter
--- OUTSIDE RECORDS SUMMARY | 2024-12-03 15:52 | XMS_ITS | Encounter Summary ---
Author Organization [facility] Address [address] [place] [address] Care Team Providers Care Contin[employer] Of Care Manager Name Role Phone Romario Hairston MD Primary Care Provider [phone]- [phone] Reason for Visit * Reason Onset Date Comments Appointment Related 08/28/2023 Encounter Details Date Type Department Care Team (Late st Contact Info) Description 08/28/2023 Telephone [facility] Cancer Center Hematology & Oncology - [address] [address] Evin Maria MD [address] [place] [address], [address] [place] [address] Appointment Related Social History Tobacco [...] Date of Assessment Author No 03/07/2022 13:33 Jostin Henry RN * Do you have serious difficulty [...] Jostin Henry RN documented in this encounter Miscellaneous Notes * Telephone Encounter - Socorro Haile - 08/28/2023 1129 EDT LM as it went straight to and neither of the pt's phone numbers went through. Let her know we got her message requesting an appt with Crow and to please call us back to find a good time. Left PAC# documented in this encounter Plan of Treatment Upcoming Encounters Date Type Department Care Team (Late st Contact Info) Description 03/04/2025 14:00 EDT Telemedicine [facility] Neurology Clinic [address] [place] [address] Brayan Polk MD [address] [facility] [address] [place] [address] 07/14/2025 14:30 EDT Office Visit [facility] Cancer Center Hematology & Oncology - [address] [address] Evin Maria MD [address] [place] [address] [address] [place] [phone] documented as of this encounter Visit Diagnoses Not on filedocumented in this encounter Care Teams Continuum Of Care Manager Relationship Specialty Start Date End Date Romario Hairston MD [address] [place], [place] [id number] PCP - General 07/06/20 documented as of this encounter
--- OUTSIDE RECORDS SUMMARY | 2024-12-03 15:52 | XMS_ITS | Encounter Summary ---
Author Organization [facility] Address [address] [place] [address] Care Team Providers Care Brusher Hand Name Role Phone Romario Hairston MD Primary Care Provider [phone] Reason for Visit * Reason Comments Weakness Pt presents from [facility] after calling EMS for a lift assist. Pt has hx TBI, unclear what her baseline is. Pt reports she has had recent falls this past week, reports she has lost weight. Received 500cc IVF en route. Encounter Details Date Type Department Care Team (Late st Contact Info) Description 01/28/2024 22:25 EST - 01/29/2024 1:17 EST Emergency [facility] Emergency Department [address] [place] [address] Roe Griggs MD [address] [place] [address] Eleazar Ozuna MD [address] [place] [address] Weakness (Primary Dx); Low serum potassium Discharge Disposition: Home or Self Care Social History Tobacco Use Types Packs/Day Years [...] Sign Reading Time Taken Comments Blood Pressure 128/81 01/29/2024 0103 EST Pulse 85 01/29/2024 0103 EST Temperature 36.6 ??C (97.9 ??F) 01/28/2024 2233 EST Respiratory Rate 18 01/29/2024 0103 EST Oxygen Saturation 95% 01/29/2024 010 EST Inhaled Oxygen Concentration - - Weight - - Height - - Body Mass Index - - documented in this encounter Functional Status * Are you deaf or do you have serious difficulty hearing? Answer Date of Assessment Author No 07/31/2022 18:20 Afia Polk RN * Are you blind or do [...] Jostin Henry RN documented in this encounter Discharge Instructions * Discharge Instructions* Eleazar Ozuna MD - 01/29/2024 0:45 EST Drink plenty of fluids Follow-up with PCP if symptoms persist Return for persistent vomiting, difficulty breathing, chest pain, worsening symptoms or any other concerns. documented in this encounter Medications at Time of Discharge apixaban (ELIQUIS) 2.5 mg tablet Take 1 Tablet by mouth 2 times daily. 60 Tablet 6 05/29/2023 metoclopramide HCl (REGLAN) 5 mg tablet Take 1 Tablet by mouth 3 times daily before meals. 90 Tablet 03/28/2022 omeprazole (PRILOSEC) 20 mg capsule TAKE 1 CAPSULE BY MOUTH EVERY DAY 30 MINUTES BEFORE BREAKFAST 07/05/2021 Prazosin (MINIPRESS) 1 mg capsule Take 1 Capsule by mouth at bedtime. 08/09/2020 pregabalin (LYRICA) 100 mg capsule Take 1 Capsule by mouth 2 times daily. Daily Max: 200 mg 180 Capsule 1 01/27/2024 acetaminophen (TYLENOL) 500 mg tablet Take 2 Tabs by mouth every 6 hours. 07/14/2020 4 buPROPion (WELLBUTRIN SR) 200 mg SR tablet Take 1 Tablet by mouth daily. 30 Tablet 1 03/29/2022 4 cholecalciferol, Vitamin D3, 25 mcg (1,000 unit) tablet Take 1 Tablet by mouth daily. Reported by caregiver 4 clotrimazole (LOTRIMIN) 1 % cream APPLY TOPICALLY TO THE AFFECTED AREA TWICE DAILY FOR 28 DAYS 10/30/2022 4 dronabinoL (MARINOL) 2.5 mg capsule Take 1 capsule by mouth 2 times daily before lunch and dinner. Daily Max: 5 mg 60 capsule 1 03/28/2022 4 GENTEAL TEARS MODERATE 0.1-0.3-0.2 % drops INSTILL 1 DROP IN BOTH EYES FOUR TIMES DAILY 02/04/2022 4 ketoconazole (NIZORAL) 2 % cream Apply to affected toenails once to twice a day. 60 g 1 07/23/2022 4 KETOTIFEN FUMARATE OPHTHALMIC Apply to eye. 4 L.acid/L.casei/B.bif /B.boyd/FOS (PROBIOTIC BLEND ORAL) Take by mouth. 4 lactulose (CHRONULAC) 10 gram/15 mL solution TAKE 15 ML BY MOUTH EVERY DAY NEEDED 11/16/2020 4 magnesium oxide (MAG-OX) 400 mg (241.3 mg magnesium) tablet Take 1 Tablet by mouth daily. 4 melatonin 5 mg tablet Take 2 Tablets by mouth at bedtime. 4 OLANZapine (ZYPREXA) 20 mg tablet Take 1 Tablet by mouth at bedtime. 12/05/2022 4 ondansetron (ZOFRAN-ODT) 4 mg disintegrating tablet Take 1 Tablet by mouth every 8 hours as needed for Nausea. 10 Tablet 02/25/2022 4 polyethylene glycol (MIRALAX) 17 gram/dose powder Take 17 g by mouth daily. 510 g 03/31/2020 4 propRANolol (INDERAL) 10 mg tablet TAKE 1 TABLET BY MOUTH EVERY MORNING, 1 TABLET EVERY AFTERNOON AND 2 TABLETS EVERY NIGHT AT BEDTIME NEEDED FOR ANXIETY. 360 Tablet 3 01/08/2024 4 senna (SENOKOT) 8.6 mg tablet Take 1 Tab by mouth 2 times daily as needed (Constipation) . 03/30/2020 4 tiZANidine (ZANAFLEX) 2 mg tablet Take 1 Tablet by mouth daily. 30 Tablet 3 01/14/2024 4 documented as of this encounter Discharge Disposition Disposition Code Departure Means Destination Comment s Home or Self Long Term documented in this encounter ED Notes * Delfina Cotton RN - 01/29/2024 0117 EST Pt to waiting room in wheelchair to wait for sister. Was able to stand pivot to chair. * Delfina Cotton RN - 01/29/2024 0015 EST Pt provided with orange juice d/t low BG on CMP. * Delfina Cotton RN - 01/28/2024 6645 EST 12 Lead EKG Performed by DELFINA COTTON RN and shown to Dr Ozuna * Roe Griggs MD - 01/28/2024 2225 EST Emergency Department Visit Medical Decision Making Medical Decision Making 54-year-old female with previous dural sinus thrombosis complicated by intracranial hemorrhage requiring craniectomy presents for evaluation of what seems to be global weakness and increased falls athome. Here in the emergency department she is awake and alert, well-appearing, in no acute distress. She does not report any major acute symptoms. Is dealing with some chronic right-sided abdominal pain which does not seem to have escalated recently. Abdominal exam is benign. Vital signs reassuring. The remainder of her physical exam is largely unremarkable-there is no evidence of acute traumatic injury. However, given her history of prior intracranial hemorrhage, falls and ongoing use of Eliquis I think CT head is indicated. We will check basic labs including CBC and CMP, chest x-ray and COVID, flu, RSV testing. I do think that the multiple sedating medications that she is on could be playing a role in her presentation as well. Signed out to oncoming colleague pending results of CT and labs. If lab work and imaging reassuring, I do think she is appropriate to be discharged back home to follow-up with her primary care provider. Problems Addressed: Low serum potassium: complicated acute illness or injury Weakness: complicated acute illness or injury Amount and/or Complexity of Data Reviewed Labs: ordered. Radiology: ordered. Risk OTC drugs. Prescription drug management. Final diagnoses: Weakness Low serum potassium Disposition: Discharged Chief complaint: weakness and increased falls recently. HPI Napoleon Loya is a 54 y.o. female with history of focal epilepsy, prior severe protein calorie malnutrition, history of hypercoagulable state on Eliquis 2.5 mg twice daily, prior intracerebral hemorrhage who presents to the ED for increased weakness and multiple falls recently. Here in the emergency department she largely denies any symptoms. Denies any headache She does report some chronic mild right-sided abdominal discomfort which she says her primary care provider is working her up for. However, does not report any significant change in this. Does reportslight decreased appetite. No reported fevers or chills. She currently lives at home by herself. Was recently started on tizanidine from Dr. Polk' office History was provided by: Patient, EMS report, chart review Records reviewed include: Previous discharge summary from 2021, ED notes from 2021, telephone encounters with Dr. Polk Per sister she has trouble feeling in her legs since her stroke. Sister says that she doesn't eat well due to problems with her teeth At her PCP office today they were worried about her gall bladder Patient's pertinent PMH, FH, SH were reviewed and edited as necessary. Nursing notes reviewed. A medical screening exam was performed. Physical Exam BP 128/81 Pulse 85 Temp 36.6 ??C (97.9 ??F) (Oral) Resp 18 SpO2 95% Physical Exam Vitals and nursing note reviewed. Constitutional: General: She is not in acute distress. Appearance: She is well-developed. HENT: Head: Normocephalic and atraumatic. Neck: Trachea: No tracheal deviation. Cardiovascular: Rate and Rhythm: Normal rate. Pulmonary: Effort: Pulmonary effort is normal. No respiratory distress. Abdominal: General: There is no distension. Comments: She reports mild right-sided abdominal discomfort with deep palpation. No guarding or rebound Musculoskeletal: General: Normal range of motion. Cervical back: Normal range of motion. Skin: General: Skin is warm and dry. Findings: No rash. Neurological: Mental Status: She is alert. Motor: No abnormal muscle tone. Comments: Awake and alert, talks in full sentences but requires repeated prompting to answer questions appropriately., She has trouble with word finding. Moves all 4 extremities to command though. 5 out of 5 strength. Extraocular movements intact no nystagmus. Procedures Procedures * Eleazar Ozuna MD - 01/28/2024 2223 EST I assumed care of patient from Dr. Griggs. I reviewed and agree with note. Napoleon Loya is a 54 y.o.female with a PMH which includes dural sinus thrombosis with hemorrhage bilateral lower extremity numbness and weakness. The patient presented with global weakness and increased falls at home.. Evaluation and management prior to transfer of care included labs and imaging ordered including CT head and CT abdomen/pelvis.. The plan for further management includes review of labs and results from imaging. Labs show slightly low potassium at 3.0. 40 mEq given. Troponin is within normal limits. No sign of ACS Liver enzymes are within normal limits. No signs of cholecystitis. COVID-19, RSV and influenza A/B negative. CT head was negative for any acute pathology. Chronic encephalomalacia of left temporoparietal region. No hemorrhage or mass effect. No edema. CT abdomen/pelvis negative for any acute pathology. Gallbladder normal. No calcified stones. No hydronephrosis. No signs of renal colic. No obstruction. No evidence of appendicitis. Patient feeling improved and is comfortable with plan to be discharged home with sister. Patient able to stand and pivot with assistance. Return precaution provided. documented in this encounter Plan of Treatment Upcoming Encounters Date Type Department Care Team (Late st Contact Info) Description 03/04/2025 14:00 EDT Telemedicine [facility] [address] [place] [id number] Brayan Polk MD [address] [place] [address] [place] [phone] 07/14/2025 14:30 EDT Office Visit [facility] Hematology & Oncology - [address] [id number] Evin Maria MD [address] [place] [address], [facility], [address] [place] [address] documented as of this encounter Procedures Procedure Name Priority Date/Time Associated Diagnosis Comments ECG REPORT - SCANNED 01/30/2024 14:06 EST POCT GLUCOSE, INTERFACED Routine 01/29/2024 0:51 EST EKG 12-LEAD STAT 01/28/2024 23:47 EST ZZCOVID-19 [facility] (TESTING ONLY) STAT 01/28/2024 23:34 EST COVID-19 TESTING STAT 01/28/2024 23:3 4 EST ZZHN INFLUENZA A AND B, RSV PCR STAT 01/28/2024 23:34 EST TROPONIN I STAT 01/28/2024 23:34 EST COMPREHENSIVE METABOLIC PANEL (CMP) STAT 01/28/2024 23:34 EST XR CHEST 2 VIEWS STAT 01/28/2024 23:[address] ABDOMEN PELVIS W CONTRAST STAT 01/28/2024 23:[address] HEAD WO CONTRAST STAT 01/28/2024 2 3:07 EST HOLD GREEN TOP Routine 01/28/2024 22:49 EST COMPLETE BLOOD COUNT AND DIFFERENTIAL STAT 01/28/2024 22:49 EST documented in this encounter Results * ECG REPORT - SCANNED (01/30/2024 14:06 EST) 01/30/2024 14:0 6 EST us Scan 2 Practice Manager PROCEDURE/MINOR SURGICAL OR DERABLES Final Result * POCT GLUCOSE, INTERFACED (01/29/2024 0:51 EST) Glucose, POC 98 70 - 100 mg/dL 01/29/2024 0:54 EST [facility] Blood CAPILLARY BLOOD / Unknown 01/29/2024 0:51 EST 01/29/2024 0:54 EST us Eleazar Ozuna MD POINT OF CARE TEST ORD ERABLES Final Result [facility] [address] [place] [address] * EKG 12-LEAD (01/28/2024 23:47 EST) 01/28/2024 23:4 7 EST Narrative [facility] - 01/30/2024 13:54 EST ? [facility] ? Test Date: ?2024-01-28 Pat Name: ? NAPOLEON LOYA ? Department: ? Room: ? 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 AB : ?1970 ? Requested By: YANI Paul Order Number: [id number] ? Reading MD: ?? VANESSA ABREU MD ? Measurements Intervals ?[place] ? Rate: ? 80 ? P: ?52 AK: ? 148 ?QRS: ?-1 QRSD: ? 80 ? T: ?23 QT: ? 402 ? QTc: ?465 ? Interpretive Statements Normal sinus rhythm Nonspecific ST and T wave abnormality Compared to ECG 03/07/2022 08:34:02 ST (T wave) deviation still present I reviewed the tracing and have either agreed or edited the findings in this report. Electronically Signed On 01-30-2024 13:54:04 EST by VANESSA ABREU MD. 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 Electronically Signed On 01-30-2024 13:54:04 EST by VANESSA SUAREZ. Roe Griggs MD CARDIAC ECG ORDERABLES Final Result [facility] * COVID-19 [facility] (TESTING ONLY) (01/28/2024 23:34 EST) Swab NASOPHARYNGEAL STRUCTURE / Unknown Swab / Unknown 01/28/2024 23:34 EST 01/28/2024 23:39 EST Roe Griggs MD MICROBIOLOGY - GENERAL ORDERA BLES Final Result Performing Organization Address City/[facility]/ZIP Co de Phone Number [facility] [address] [place] [address] * TROPONIN I (01/28/2024 23:34 EST) Pathologist [facility] Troponin I (ng/mL) <0.034 <0.034 ng/mL 01/29/2024 0:21 EST [facility] Blood VENOUS BLOOD / Unknown Venipuncture / Unknown 01/28/2024 23:34 EST 01/28/2024 23:39 EST Narrative [facility] - 01/29/2024 0:21 EST The results of this assay can be falsely lowered due to the consumption of Biotin. Roe Griggs MD CHEMISTRY & BLOOD GAS ORDERAB LES Final Result Performing Organization Address [facility] Co de Phone Number [facility] [address] [place] [address] * COVID-19 TESTING (01/28/2024 23:34 EST) [facility] COVID-19 rt-PCR Result Negative Negative 01/29/2024 0:27 EST [facility] Performing Lab Cepheid GeneXpert [facility] 01/29/2024 0:27 EST [facility] Swab NASOPHARYNGEAL STRUCTURE / Unknown Swab / Unknown 01/28/2024 23:34 EST 01/28/2024 23:39 EST Roe Griggs MD MICROBIOLOGY - GENERAL ORDERA BLES Final Result Performing Organization Address City/[facility]/ZIP Co de Phone Number [facility] [address] [place] [address] * INFLUENZA A AND B,RSV PCR (01/28/2024 23:34 EST) FLU A RNA Result (FLARES) Negative Negative 01/29/2024 0:27 [facility] FLU B RNA Result (FLBRES) Negative Negative 01/29/2024 0:27 [facility] RSV RNA Result (RSVRES) Negative Negative 01/29/2024 0:27 [facility] Swab NASOPHARYNGEAL STRUCTURE / Unknown Swab / Unknown 01/28/2024 23:34 EST 01/28/2024 23:39 EST us Roe Griggs MD MICROBIOLOGY - GENERAL ORDERA BLES Final Result Performing Organization Address City/State/[facility] Co de Phone Number [facility] [address] [place] [address] * (ABNORMAL) COMPREHENSIVE METABOLIC PANEL (CMP) (01/28/2024 23:34 EST) Pathologist [facility] Sodium 134(L) 136 - 145 mmol/L 01/29/2024 0:05 [facility] Potassium 3.0(L) 3.5 - 5.0 mmol/L 01/29/2024 0:05 [facility] Chloride 108 96 - 110 mmol/L 01/29/2024 0:05 [facility] CO2 Total 18(L) 22 - 32 mmol/L 01/29/2024 0:05 [facility] Glucose 68(L) 70 - 99 mg/dl 01/29/2024 0:05 [facility] BUN 7(L) 10 - 26 mg/dL 01/29/2024 0:05 [facility] Creatinine 0.55 0.52 - 1.04 mg/dL 01/29/2024 0:05 [facility] eGFR 108 >60 mL/min/1.7 3m2 01/29/2024 0:05 [facility] Total Protein 4.7(L) 6.3 - 8.2 g/dL 01/29/2024 0:05 [facility] Albumin 2.3(L) 3.4 - 4.9 g/dL 01/29/2024 0:05 [facility] Alkaline Phosphatase 76 38 - 126 U/L 01/29/2024 0:05 [facility] AST 19 15 - 46 U/L 01/29/2024 0:05 [facility] ALT 20 <35 U/L 01/29/2024 0:05 [facility] Bilirubin, Total 0.5 <1.4 mg/dL 01/29/20 24 0:05 [facility] Calcium 7.3(L) 8.5 - 10.5 mg/dL 01/29/2024 0:05 [facility] Albumin/Globulin Ratio 1.0 1.0 - 2.5 01/29/2024 0:05 [facility] Anion Gap 8 5 - 14 mmol/L 01/29/2024 0:05 [facility] Blood VENOUS BLOOD / Unknown Venipuncture / Unknown 01/28/2024 23:34 EST 01/28/2024 23:39 EST Roe Griggs MD CHEMISTRY & BLOOD GAS ORDERAB LES Final Result Performing Organization Address City/State/[facility] Co de Phone Number [facility] [address] [place] [address] * XR CHEST 2 VIEWS (01/28/2024 23:29 EST) Anatomical Region Laterality Modality Computed Radiogr aphy 01/28/2024 22:5 1 EST Impressions 01/29/2024 0:17 EST No acute findings. THIS DOCUMENT HAS BEEN ELECTRONICALLY SIGNED BY ELIZABETH MORRIS MD FOR ANY QUESTIONS OR CONCERNS REGARDING THIS REPORT PLEASE CALL [facility] AT [phone] Narrative 01/29/2024 0:17 EST PROCEDURE INFORMATION: Exam: XR Chest Exam date and time: 01/28/2024 10:51 PM Age: 54 years old Clinical indication: Other: Falls, weakness TECHNIQUE: Imaging protocol: Radiologic exam of the chest. Views: 2 views. COMPARISON: CT CHEST WITHOUT CONTRAST 08/11/2021 2:43 PM FINDINGS: Lungs: Unremarkable. No consolidation. Pleural spaces: Unremarkable. No pleural effusion. No pneumothorax. Heart/Mediastinum: Unremarkable. No cardiomegaly. Bones/joints: Unremarkable. Procedure Note Elizabeth Morris MD - 01/29/2024 PROCEDURE INFORMATION: Exam: XR Chest Exam date and time: 01/28/2024 10:51 PM Age: 54 years old Clinical indication: Other: Falls, weakness TECHNIQUE: Imaging protocol: Radiologic exam of the chest. Views: 2 views. COMPARISON: CT CHEST WITHOUT CONTRAST 08/11/2021 2:43 PM FINDINGS: Lungs: Unremarkable. No consolidation. Pleural spaces: Unremarkable. No pleural effusion. No pneumothorax. Heart/Mediastinum: Unremarkable. No cardiomegaly. Bones/joints: Unremarkable. IMPRESSION No acute findings. THIS DOCUMENT HAS BEEN ELECTRONICALLY SIGNED BY ELIZABETH MORRIS MD FOR ANY QUESTIONS OR CONCERNS REGARDING THIS REPORT PLEASE CALL [facility] [phone] Roe Griggs MD IMG DIAGNOSTIC IMAGING ORDERA BLES Final Result * CT ABDOMEN PELVIS W CONTRAST (01/28/2024 23:18 EST) Anatomical Region Laterality Modality Body, Abdomen, Pelvis, Abdomen and Pelvis Computed Tomography 01/28/2024 23:0 3 EST Impressions 01/29/2024 0:28 EST No acute abnormality. THIS DOCUMENT HAS BEEN ELECTRONICALLY SIGNED BY ELIZABETH MORRIS MD FOR ANY QUESTIONS OR CONCERNS REGARDING THIS REPORT PLEASE CALL [facility] AT [phone] Narrative 01/29/2024 0:28 EST PROCEDURE INFORMATION: Exam: CT Abdomen And Pelvis With Contrast Exam date and time: 01/28/2024 11:03 PM Age: 54 years old Clinical indication: Other: Right sided abdominal pain TECHNIQUE: Imaging protocol: Computed tomography of the abdomen and pelvis with contrast. Radiation optimization: All CT scans at this facility use at least one of these dose optimization techniques: automated exposure control; mA and/or kV adjustment per patient size (includes targeted exams where dose is matched to clinical indication); or iterative reconstruction. Contrast material: OMNI 350; Contrast volume: 100 ml; Contrast route: INTRAVENOUS (IV); ?? COMPARISON: CT ABDOMEN PELVIS W CONTRAST 01/30/2022 4:03 PM FINDINGS: Liver: Diffuse decrease in hepatic parenchymal density, consistent with fatty infiltration. Several hepatic cysts largest 9 mm. Gallbladder and bile ducts: Normal. No calcified stones. No ductal dilation. Pancreas: Normal. No ductal dilation. Spleen: Normal. No splenomegaly. Adrenal glands: Normal. No mass. Kidneys and ureters: Normal. No hydronephrosis. Stomach and bowel: Unremarkable. No obstruction. No mucosal thickening. Appendix: No evidence of appendicitis. Intraperitoneal space: Unremarkable. No free air. No significant fluid collection. Vasculature: Unremarkable. No abdominal aortic aneurysm. Lymph nodes: Unremarkable. No enlarged lymph nodes. Urinary bladder: Unremarkable as visualized. Reproductive: Unremarkable as visualized. Bones/joints: Unremarkable. No acute fracture. Soft tissues: Unremarkable. Procedure Note Elizabeth Morris MD - 01/29/2024 PROCEDURE INFORMATION: Exam: CT Abdomen And Pelvis With Contrast Exam date and time: 01/28/2024 11:03 PM Age: 54 years old Clinical indication: Other: Right sided abdominal pain TECHNIQUE: Imaging protocol: Computed tomography of the abdomen and pelvis with contrast. Radiation optimization: All CT scans at this facility use at least one of these dose optimization techniques: automated exposure control; mA and/or kV adjustment per patient size (includes targeted exams where dose is matched to clinical indication); or iterative reconstruction. Contrast material: OMNI 350; Contrast volume: 100 ml; Contrast route: INTRAVENOUS (IV); COMPARISON: CT ABDOMEN PELVIS W CONTRAST 01/30/2022 4:03 PM FINDINGS: Liver: Diffuse decrease in hepatic parenchymal density, consistent with fatty infiltration. Several hepatic cysts largest 9 mm. Gallbladder and bile ducts: Normal. No calcified stones. No ductal dilation. Pancreas: Normal. No ductal dilation. Spleen: Normal. No splenomegaly. Adrenal glands: Normal. No mass. Kidneys and ureters: Normal. No hydronephrosis. Stomach and bowel: Unremarkable. No obstruction. No mucosal thickening. Appendix: No evidence of appendicitis. Intraperitoneal space: Unremarkable. No free air. No significant fluid collection. Vasculature: Unremarkable. No abdominal aortic aneurysm. Lymph nodes: Unremarkable. No enlarged lymph nodes. Urinary bladder: Unremarkable as visualized. Reproductive: Unremarkable as visualized. Bones/joints: Unremarkable. No acute fracture. Soft tissues: Unremarkable. IMPRESSION No acute abnormality. THIS DOCUMENT HAS BEEN ELECTRONICALLY SIGNED BY ELIZABETH MORRIS MD FOR ANY QUESTIONS OR CONCERNS REGARDING THIS REPORT PLEASE CALL [facility] [phone] us Roe Griggs MD IMG CT ORDERABLES Final Resul t * CT HEAD WO CONTRAST (01/28/2024 23:07 EST) Anatomical Region Laterality Modality Head Computed Tomogra phy 01/28/2024 22:4 6 EST Impressions 01/29/2024 0:[address] Nothing acute. THIS DOCUMENT HAS BEEN ELECTRONICALLY SIGNED BY LOUIS HOPKINS MD FOR ANY QUESTIONS OR CONCERNS REGARDING THIS REPORT PLEASE CALL [facility] AT [phone] [facility] 01/29/2024 0:01 EST PROCEDURE INFORMATION: Exam: CT Head Without Contrast Exam date and time: 01/28/2024 10:46 PM Age: 54 years old Clinical indication: Other: Fall, weakness; Prior surgery; Surgery date: 6+ months; Surgery type: PT not sure what kind of brain surgery she had HX tbi TECHNIQUE: Imaging protocol: Computed tomography of the head without contrast. Total images: 274 Radiation optimization: All CT scans at this facility use at least one of these dose optimization techniques: automated exposure control; mA and/or kV adjustment per patient size (includes targeted exams where dose is matched to clinical indication); or iterative reconstruction. COMPARISON: CT HEAD WO CONTRAST 07/31/2022 7:05 PM FINDINGS: Brain: Chronic encephalomalacia left temporoparietal region. No hemorrhage or mass effect.No edema. Cerebral ventricles: Ex vacuo dilatation left lateral ventricle. Paranasal sinuses: Minimal mucosal thickening left maxillary sinus. Mastoid air cells: Mastoid air cells are clear. Bones/joints: Left craniotomy. Soft tissues: Unremarkable. Procedure Note Louis Hopkins MD - 01/29/2024 PROCEDURE INFORMATION: Exam: CT Head Without Contrast Exam date and time: 01/28/2024 10:46 PM Age: 54 years old Clinical indication: Other: Fall, weakness; Prior surgery; Surgery date: 6+ months; Surgery type: PT not sure what kind of brain surgery she had HX tbi TECHNIQUE: Imaging protocol: Computed tomography of the head without contrast. Total images: 274 Radiation optimization: All CT scans at this facility use at least one of these dose optimization techniques: automated exposure control; mA and/or kV adjustment per patient size (includes targeted exams where dose is matched to clinical indication); or iterative reconstruction. COMPARISON: CT HEAD WO CONTRAST 07/31/2022 7:05 PM FINDINGS: Brain: Chronic encephalomalacia left temporoparietal region. No hemorrhage or mass effect.No edema. Cerebral ventricles: Ex vacuo dilatation left lateral ventricle. Paranasal sinuses: Minimal mucosal thickening left maxillary sinus. Mastoid air cells: Mastoid air cells are clear. Bones/joints: Left craniotomy. Soft tissues: Unremarkable. IMPRESSION Stable head CT. Nothing acute. THIS DOCUMENT HAS BEEN ELECTRONICALLY SIGNED BY LOUIS HOPKINS MD FOR ANY QUESTIONS OR CONCERNS REGARDING THIS REPORT PLEASE CALL [facility] [phone] us Roe Griggs MD IMG CT ORDERABLES Final Resul t * HOLD GREEN TOP (01/28/2024 22:49 EST) Hold Hold 01/29/2024 0:0 1 [facility] Blood VENOUS BLOOD / Unknown Venipuncture / Unknown 01/28/2024 22:49 EST 01/28/2024 22:59 EST us Roe Griggs MD LAB INFO SERVICE AND SUPPORT & PHONE RESULT Final Result [facility] [address] [place] [address] * (ABNORMAL) COMPLETE BLOOD COUNT AND DIFFERENTIAL (01/28/2024 22:49 EST) WBC 6.93 4.00 - 12.40 K/cmm 01/28/2024 23:01 [facility] RBC 4.49 3.86 - 5.04 M/cmm 01/28/2024 23:01 [facility] Hemoglobin 15.4(H) 11.6 - 15.2 g/dL 01/28/2024 23:01 [facility] HCT 44.2 34.9 - 44.4 % 01/28/2024 23:01 [facility] MCV 98 81 - 98 fL 01/28/2024 23:01 [facility] MCH 34.3(H) 26.7 - 33.3 pg 01/28/2024 23:01 [facility] MCHC 34.8 32.1 - 35.9 g/dL 01/28/2024 23:01 [facility] RDW-CV 16.6(H) <14.7 % 01/28/2024 23:01 [facility] RDW-SD 60.9(H) <50.4 fl 01/28/2024 23:01 [facility] PLT 205 141 - 377 K/cmm 01/28/2024 23:01 [facility] MPV 11.2 9.5 - 12.7 fL 01/28/2024 23:01 [facility] % Neutrophils 57.2 % 01/28/2024 23:01 [facility] % Lymphocytes 36.9 % 01/28/2024 23:01 [facility] % Monocytes 4.8 % 01/28/2024 23:01 [facility] % Eosinophils 0.1 % 01/28/2024 23:01 [facility] % Basophils 0.3 % 01/28/2024 23:01 [facility] % Immature Grans 0.7 % 01/28/20 23:01 [facility] Absolute Neutrophils 3.96 2.20 - 8.85 K/cmm 01/28/2024 23:01 [facility] Absolute Lymphocytes 2.56 1.09 - 3.30 K/cmm 01/28/2024 23:01 [facility] Absolute Monocytes 0.33 0.10 - 0.80 K/cmm 01/28/2024 23:01 [facility] Absolute Eosinophils 0.01(L) 0.03 - 0.61 K/cmm 01/28/2024 23:01 [facility] ABS Basophils 0.02 0.01 - 0.11 K/cmm 01/28/2024 23:01 [facility] Absolute Immature Grans 0.05 0.00 - 0.06 K/cmm 01/28/2024 23:01 EST [facility] Type of Differential: Auto 01/28/2024 23:01 EST [facility] Blood VENOUS BLOOD / Unknown Venipuncture / Unknown 01/28/2024 22:49 EST 01/28/2024 22:59 EST us Roe Griggs MD PACKAGES & DNA PROBE ORDERABL ES Final Result [facility] [address] [place] [address] documented in this encounter Visit Diagnoses Diagnosis Weakness- Primary Other malaise and fatigue Low serum potassium documented in this encounter Administered Medications Inactive Administered Medications - up to 3 most recent administrations Medication Order MAR Action Action Date Dose Rate Site calcium carbonate (TUMS) tablet 500 mg (200 mg elemental calcium) 2 Tablet 2 Tablet, oral, NOW X1, 1 dose, On Sat01/29/24 at 0115, STAT Given 01/29/2024 1:07 EST 2 Tablets iohexoL (OMNIPAQUE 350) solution 100 mL 100 mL, intravenous, Once in imaging, 1 dose, Starting on Sat01/28/24 at 2307, Until Sat01/28/24 at 2319, Routine Given 01/28/2024 23:19 EST 100 mL potassium chloride (MICRO-K) capsule 40 mEq 40 mEq, oral, NOW X1, 1 dose, On Sat01/29/24 at 0030, STAT Given 01/29/2024 0:23 EST 40 mEq sodium chloride 0.9 % BOLUS 500 mL 500 mL, intravenous, NOW X1, 1 dose, On Sat01/29/24 at 0015, STAT New Bag 01/28/2024 23:55 EST 500 mL documented in this encounter Active and Recently Administered Medications Times are shown in EST. Scheduled Medication Order 01/27/2024 01/28/2024 01/29/2024 calcium carbonate (TUMS) tablet 500 mg (200 mg elemental calcium) 2 Tablet (COMPLETED) 2 Tablet, oral, NOW X1, 1 dose, On Sat01/29/24 at 0115, STAT 0107 (Given - Provid er: Cecelia Espinoza RN) iohexoL (OMNIPAQUE 350) solution 100 mL (COMPLETED) 100 mL, intravenous, Once in imaging, 1 dose, Starting on Sat01/28/24 at 2307, Until Sat01/28/24 at 2319, Routine 2319 (Given - Provider: Olivia Michael) potassium chloride (MICRO-K) capsule 40 mEq (COMPLETED) 40 mEq, oral, NOW X1, 1 dose, On Sat01/29/24 at 0030, STAT 0023 (Given - Provid er: Delfina Cotton, [place]ALEA) sodium chloride 0.9 % BOLUS 500 mL (COMPLETED) 500 mL, intravenous, NOW X1, 1 dose, On Sat01/29/24 at 0015, STAT 2355 (New Bag - Provider: Grayson Vincent RN) 0059 (Completed - Provider: Delfina Cotton, [place]ALEA) documented in this encounter Additional Health Concerns Infection Onset Date Last Indicated Resolved Time R/O COVID-19 01/28/2024 01/28/2024 01/29/2024 0:27 EST documented as of this encounter Care Teams Brusher Hand Relationship Specialty Start Date End Date Romario Hairston MD [address] [place] [address] PCP - General 07/06/20 documented as of this encounter
--- OUTSIDE RECORDS SUMMARY | 2024-12-03 15:52 | XMS_ITS | Encounter Summary ---
Author Organization [facility] Address [address] [place] [address] Care Team Providers Care Kitchen And Counter Worker Name Role Phone Romario Hairston MD Primary Care Provider +1- [phone] Reason for Visit * Reason Onset Date Comments FMLA Paperwork 09/06/20232019 Encounter Details Date Type Department Care Team (Late st Contact Info) Description 09/06/2023 Telephone [facility] Cancer Center Hematology & Oncology - [address] [address] Evin Maria MD [address] [place] [address], [address] [place] [phone] FMLA Paperwork (2019) Social History Tobacco Use Types Packs/Day Years [...] Assessment Author No 07/31/2022 18:20 EDT Afia Mejia, RN * Are you blind or do [...] encounter Miscellaneous Notes * Telephone Encounter - Adali Garza RN - 09/13/2023 1042 EDT No FMLA paperwork on file or in scans -original is given to the pt * Telephone Encounter - Maya De Leon - 09/06/2023 1450 EDT Patient's sister Lucille is calling to ask if we would still have copies of FMLA paperwork that Dr Maria filled out for her to care for patient in 2019. Lucille is unsure if it was Dr Maria who filled them out and stated she may have to call one of patient's other providers if not. Please call to advise. documented in this encounter Plan of Treatment Upcoming Encounters Date Type Department Care Team (Late st Contact Info) Description 03/04/2025 14:00 EDT Telemedicine [facility] Neurology Clinic [address] [place] [address] Brayan Polk MD [address] [facility] [address] [place] [address] 07/14/2025 14:30 EDT Office Visit [facility] Cancer Center Hematology & Oncology - [address] [address] Evin Maria MD 111 [facility], [address] [place] [address] documented as of this encounter Visit Diagnoses Not on filedocumented in this encounter Care Teams Kitchen And Counter Worker Relationship Specialty Start Date End Date Romario Hairston MD [address], [address] [phone] PCP - General 07/06/20 documented as of this encounter
--- OUTSIDE RECORDS SUMMARY | 2024-12-03 15:52 | XMS_ITS | Encounter Summary ---
Author Organization [facility] Address [address] [place] [address] Care Team Providers Care Rotogravure Press Operator Name Role Phone Romario Hairston MD Primary Care Provider +1- [phone] Reason for Visit * Reason Onset Date Comments Medications Refill 11/07/2023 Encounter Details Date Type Department Care Team (Late st Contact Info) Description 11/07/2023 Refill [facility] Neurology Clinic [address] [phone] Vashti Grover RN Medications Refill Social History Tobacco Use Types [...] Date of Assessment Author No 07/31/2022 18:20 J CARLOST Afia Mejia RN * Are you blind [...] Telephone Encounter - Vashti Grover RN - 11/07/2023 1053 EST Request received for methocarbamol 500 mg 1 tab bid. Tthere is a note on the medication record thatedin is no longer taking this medication reported on 09/11/2023. Ignoring the request and removing medication form med list. documented in this encounter Plan of Treatment Upcoming Encounters Date Type Department Care Team (Late st Contact Info) Description 03/04/2025 14:00 EDT Telemedicine [facility] Neurology Clinic [address] [place] [address] Brayan Polk MD [address] [facility] [place] [address] 07/14/2025 14:30 EDT Office Visit [facility] Cancer Center Hematology & Oncology - [address] [phone] Evin Maria MD [address] [place] [address], [facility], [address] [place] [address] documented as of this encounter Visit Diagnoses Not on filedocumented in this encounter Discontinued Medications Medication Sig Discontinue Reason Start Date End Da te methocarbamoL (ROBAXIN) 500 mg tablet TAKE 1 TABLET BY MOUTH TWICE DAILY Patient Stopped Taking 05/29/2023 11/07/2023 documented as of this encounter Care Teams Rotogravure Press Operator Relationship Specialty Start Date End Date Romario Hairston MD [address] [place] [address] PCP - General 07/06/20 documented as of this encounter
--- OUTSIDE RECORDS SUMMARY | 2024-12-03 15:52 | XMS_ITS | Encounter Summary ---
Author Organization [facility] Address [address] [place] [address] Care Team Providers Care Desk Assistant Name Role Phone Romario Hairston MD Primary Care Provider +1- [phone] Reason for Visit * Reason Onset Date Comments Medications Refill 11/12/2023 Encounter Details Date Type Department Care Team (Late st Contact Info) Description 11/12/2023 [facility]phone [facility] [address] [place] [address] Brayan Polk MD 130 [facility] [address] [place] [address] Medications Refill Social History Tobacco [...] Refills Last Filled Start Date End Date methocarbamoL (ROBAXIN) 500 mg tablet Take 1 Tablet by mouth 2 times daily for 30 days. 60 Tablet 11/12/2023 12/25/2023 documented in this encounter Miscellaneous Notes * Addendum Note - Vashti Grover RN - 11/12/2023 1445 ESTAddended by: VASHTI GROVER on: 11/12/2023 14:45 Modules accepted: Orders * Telephone Encounter - Brayan Polk MD - 11/12/2023 1410 EST Ok to give 30 day supply and we can discuss when she comes in for appointment. * Telephone Encounter - Vashti Grover RN - 11/12/2023 1401 EST On 11/07 we received a refill request for methocarbamol and her medication list stated that she wasno longer taking this medication. I did not refill. Now we received a call from patient's sister asking for methocarbamol. Are you OK with continuing to prescribe it? Angie spoke with the sister and I guess Ever is no longer in the picture. I cannot confirm any recent history. * Telephone Encounter - Angie Haley - 11/12/2023 0905 EST [facility]- METHOEARBAMOL 500MG documented in this encounter Plan of Treatment Upcoming Encounters Date Type Department Care Team (Late st Contact Info) Description 03/04/2025 14:00 EDT [facility] Neurology Clinic [address] [place] [address] Brayan Polk MD 130 [facility] [place] [phone] 07/14/2025 14:30 EDT Office Visit [facility] Cancer Center Hematology & Oncology - [address] [phone] Evin Maria MD [address] [place] [address], [address] [place] [address] documented as of this encounter Visit Diagnoses Not on filedocumented in this encounter Care Teams Desk Assistant Relationship Specialty Start Date End Date Romario Hairston MD [address], [address] [address] PCP - General 07/06/20 documented as of this encounter
--- OUTSIDE RECORDS SUMMARY | 2024-12-03 15:52 | XMS_ITS | Encounter Summary ---
Author Organization [facility] Address [address] [place] [address] Care Team Providers Care Wildlife Rehabilitator Name Role Phone Romario Hairston MD Primary Care Provider +1- [phone] Reason for Visit * Reason Comments Medications Refill Encounter Details Date Type Department Care Team (Late st Contact Info) Description 01/08/2024 Refill [facility] Neurology Clinic [address] [place] [address] Brayan Polk MD [address] [place] [address] [place] [address] Medications Refill Social History Tobacco [...] Refills Last Filled Start Date End Date propRANolol (INDERAL) 10 mg tablet TAKE 1 TABLET BY MOUTH EVERY MORNING, 1 TABLET EVERY AFTERNOON AND 2 TABLETS EVERY NIGHT AT BEDTIME NEEDED FOR ANXIETY. 360 Tablet 3 01/08/2024 4 documented in this encounter Miscellaneous Notes * Telephone Encounter - Vashti Grover RN - 01/08/2024 0817 EST Propranolol was started while inpatient at [facility] and continued by Dr. Polk. Escript as requested. documented in this encounter Plan of Treatment Upcoming Encounters Date Type Department Care Team (Late st Contact Info) Description 03/04/2025 14:00 EDT Telemedicine [facility] [address] [place] [address] Brayan Polk MD 130 [facility]-[address] [place] [address] 07/14/2025 14:30 EDT Office Visit [facility] Cancer Center Hematology & Oncology - Main [address] [address] Evin Maria MD [address] [facility], [address] [place] [address] documented as of this encounter Visit Diagnoses Not on filedocumented in this encounter Discontinued Medications Medication Sig Discontinue Reason Start Date End Da te propRANolol (INDERAL) 10 mg tablet Take I tablet by mouth every morning, 1 in the afternoon and 2 tablets at bedtime as needed for anxiety. 01/04/2023 01/08/2024 documented as of this encounter Care Teams Wildlife Rehabilitator Relationship Specialty Start Date End Date Romario Hairston MD [facility], [address] [phone] PCP - General 07/06/20 documented as of this encounter
--- OUTSIDE RECORDS SUMMARY | 2024-12-03 15:52 | XMS_ITS | Encounter Summary ---
Author Organization [facility] Address [address] [place] [address] Care Team Providers Care Plant Taxonomy Teacher Name Role Phone Romario Hairston MD Primary Care Provider +1- [phone] Reason for Visit * Reason Onset Date Comments Medications Refill 01/27/2024 Encounter Details Date Type Department Care Team (Late st Contact Info) Description 01/27/2024 Telephone [facility] [address] [place] [address] Brayan Polk MD 130 [facility] [address] [place] [address] Medications Refill Social History Tobacco [...] Date of Assessment Author Yes 03/07/2022 13:33 EDT Jostin Chaudhary RN * Do you have difficulty dressing or bathing? (5 years old or older) Answer Date of Assessment Author Yes 03/07/2022 13:33 EDT Jostin Chaudhary RN * Because of a physical, mental, or emotional condition, do you have difficulty doing errands alone such as visiting a doctor's office or shopping? (15 years old or older) Answer Date of Assessment Author Yes 03/07/2022 13:33 EDT Jostin Chaudhary RN documented as of this encounter Mental Status * Because of a physical, mental, or emotional condition, do you have serious difficulty concentrating, remembering, or making decisions? (5 years old or older) Answer Entry Date Author No 03/07/2022 13:33 EDT Jostin Chaudhary RN documented in this encounter Ordered Prescriptions Prescription Sig Dispense Quantity Refills Last Filled Start Date End Date pregabalin (LYRICA) 100 mg capsule Take 1 Capsule by mouth 2 times daily. Daily Max: 200 mg 180 Capsule 1 01/27/2024 documented in this encounter Miscellaneous Notes * Telephone Encounter - Vashti Grover RN - 01/27/2024 1333 EST Prescription called into the pharmacy. * Telephone Encounter - Vashti Grover RN - 01/27/2024 1238 EST Escript for pregabalin 100 mg bid per ELECTRONIC EQUIPMENT TRADES WORKER note on 06/20/2023. * Telephone Encounter - Angie Haley - 01/27/2024 1125 EST [facility] Refill-Pregabalin documented in this encounter Plan of Treatment Upcoming Encounters Date Type Department Care Team (Late st Contact Info) Description 03/04/2025 14:00 EDT Telemedicine [facility] [address] [place], [place] [address] Brayan Polk MD 130 [facility] [address] [place] [phone] 07/14/2025 14:30 EDT Office Visit [facility] Cancer Center Hematology & Oncology - [address] [phone] Evin Maria MD 111 [facility], [address] [place] [address] documented as of this encounter Visit Diagnoses Not on filedocumented in this encounter Discontinued Medications Medication Sig Discontinue Reason Start Date End Da te pregabalin (LYRICA) 100 mg capsule Take 1 Capsule by mouth 2 times daily. Daily Max: 200 mg Reorder 11/19/2023 01/27/2024 documented as of this encounter Care Teams Plant Taxonomy Teacher Relationship Specialty Start Date End Date Romario Hairston MD [address], [address] [phone] PCP - General 07/06/20 documented as of this encounter
--- OUTSIDE RECORDS SUMMARY | 2024-12-03 15:52 | XMS_ITS | Encounter Summary ---
Author Organization [facility] Address [address] [place] [address] Care Team Providers Care Fermenter Name Role Phone Romario Hairston MD Primary Care Provider +1- [phone] Reason for Visit * Reason Onset Date Comments Medications Refill 11/19/2023 Encounter Details Date Type Department Care Team (Late st Contact Info) Description 11/19/2023 Telephone [facility] Neu[facility] Clinic [address] [place] [address] Vashti Grover RN Medications Refill Social History [...] Daily Max: 200 mg 180 Capsule 1 11/19/2023 documented in this encounter Miscellaneous Notes * Telephone Encounter - Vashti Grover RN - 11/20/2023 1138 EST Pharmacy was not open yesterday when I called. Called back today and I was able to leave a message with the prescription for pregabalin. * Telephone Encounter - Angie Haley - 11/20/2023 1037 EST Isabell Bonilla's sister called about refill for pregabalin at [facility] * Telephone Encounter - Vashti Grover RN - 11/19/2023 1301 EST Request for pregabalin 100 mg bid. Escript per PAPER MILL MANAGER note on 06/20/2023. documented in this encounter Plan of Treatment Upcoming Encounters Date Type Department Care Team (Late st Contact Info) Description 03/04/2025 14:00 EDT Telemedicine [facility] Neu[facility] Clinic [address] [place], [place] [address] Brayan Polk MD 130 [facility] [place] [phone] 07/14/2025 14:30 EDT Office Visit [facility] Cancer Center Hematology & Oncology - [address] [address] Evin Maria MD 111 [facility], [address] [place] [address] documented as of this encounter Visit Diagnoses Not on filedocumented in this encounter Discontinued Medications Medication Sig Discontinue Reason Start Date End Da te pregabalin (LYRICA) 100 mg capsule Take 1 Capsule by mouth 2 times daily. Daily Max: 200 mg Reorder 06/25/2023 11/19/2023 documented as of this encounter Care Teams Fermenter Relationship Specialty Start Date End Date Romario Hairston MD [address], [address] [address] PCP - General 07/06/20 documented as of this encounter
--- OUTSIDE RECORDS SUMMARY | 2024-12-03 15:52 | XMS_ITS | Encounter Summary ---
Author Organization [facility] Address [address] [place] [address] Care Team Providers Care Senior Project Architect Name Role Phone Romario Hairston MD Primary Care Provider [phone] Reason for Visit * Reason Comments Fall Pt arrives via EMS w ho reports 6 falls in last week and hx stroke two years ago. Pt states, my brain wouldn't let me shower today and I fell down reports two falls today. LLE pain * Auth/Cert (Routine) Specialty Diagnoses / Procedures Referred By Mitch pruett Referred To Contact Diagnoses Weakness Failure to thrive in adult Acute left ankle pain Closed avulsion fracture of medial malleolus of left tibia, initial encounter Sprain of left ankle, unspecified ligament, initial encounter Hypomagnesemia Acute left ankle pain [M25.572] Referral ID Status Reason Start Date Expiration Date Visits Re quested Visits Authorized [id number] 1 1 Encounter Details Date Type Department Care Team (Late st Contact Info) Description 02/04/2024 11:38 EDT - 02/20/2024 0:04 EDT Hospital Encounter [facility] Medical / Surgical Department [address] [place], [place] [address] Roe Griggs MD [address] [place] [address] Kassandra Ansari MD [address] [place] [phone] Apolinar Diallo MD Swayze-Quinn, Hannah, MD [address] [place] [address] Greg Chavez MD [address] [place] [address], [place] [phone] Rosalind Atkins MD [address] [place] [phone] Noreen Montez FNP [address] [place] [address], [place] [phone] Claus De MD [address] [place] [address], [place] [phone] Victorina Macedo PA-C [address] [place] [phone] Maninder Li MD [address] [place] [address], [place] [phone] Sprain of left ankle, unspecified ligament, initial encounter (Primary Dx); Weakness; Failure to thrive in adult; Closed avulsion fracture of medial malleolus of left tibia, initial encounter; Acute left ankle pain [M25.572]; Hypomagnesemia [E83.42]; Ileus ([facility]) [K56.7]; Epigastric pain [R10.13]; Right upper quadrant abdominal pain [R10.11]; Hyponatremia [E87.1]; Banner syndrome; Progressive focal motor weakness [R53.1]; Progressive focal motor weakness; AIDP (acute inflammatory demyelinating polyneuropathy) ([facility]) [G61.0] Discharge Disposition: Short Term Hospital Social History Tobacco Use Types Packs/Day Years [...] Sign Reading Time Taken Comments Blood Pressure 122/79 02/19/2024 2309 EDT Pulse 80 02/16/2024 2100 EDT Temperature 36.9 ??C (98.5 ??F) 02/19/2024 2221 EDT Respiratory Rate 18 02/19/2024 2309 EDT Oxygen Saturation 96% 02/19/2024 2309 EDT Inhaled Oxygen Concentration - - Weight 81 kg (178 lb 9.2 oz) 02/19/2024 1500 EDT Height 170.2 cm (5' 7) 02/19/2024 1500 EDT Body Mass Index 27.97 02/19/2024 1500 EDT documented in this encounter Functional Status [...] documented in this encounter Discharge Summaries * Liss Quigley, DO - 02/19/20242153 EDT DISCHARGE SUMMARY PATIENT NAME : Ynes White : 1970 PRIMARY CARE PHYSICIAN : Romario Hairston DATE OF ADMISSION : 02/04/2024 DATE OF DISCHARGE : 02/19/2024 FINAL DISCHARGE DIAGNOSES 1. AIDP 2. Ileus/pseudoobstruction 3. B12 deficiency with suspected pernicious anemia 4. Folate deficiency 5. Left ankle avulsion fracture 6. UTI 7. Chronic pain 8. Hypertension 9. History of prior cerebral venous sinus thrombosis unprovoked PE 10. Acute hypomagnesemia 11. Acute hyponatremia 12. Depression and anxiety 13. GERD 14. Focal seizure secondary to hemorrhagic stroke PROCEDURES AND STUDIES Pending studies: 1. SSA/SSB 2. Serum paraneoplastic autoantibody panel 3. Serum demyelinating neuropathy panel 4. CSF West Nile virus testing [facility] Neurology General surgery HISTORY AND REASON FOR ADMISSION Please see admission H&P for full admission details, but briefly this is a 54 y.o. female admitted to [facility] for weakness, falls, 2 small avulsion fractures HOSPITAL COURSE Patient initially admitted for falls and small left ankle avulsion fractures on 02/03 for which a walking boot was recommended by orthopedic surgery. Early hospital course complicated by urinary tractinfection for which she received a course of IV and oral cephalosporin antibiotics, ileus/pseudoobstruction possibly brought on by opiate pain control for her ankle fracture and treated with scheduled senna, MiraLAX, Reglan. After admission the patient was noted to have worsening weakness in her upper and lower extremities. She was noted to have B12 and folate deficiency. Intrinsic factor antibody positive on 02/16 but the patient had been administered B12 injection on 02/15 which can cause false positive intrinsic factor antibody tests. B12 injections were held and is recommended to repeat IIFantibody on 03/01. Patient will continue on oral folic acid. As she had ongoing weakness, neurology was consulted and a workup for AIDP was completed. CSF showed isolated elevated protein and EMG was suggestive of AIDP. IVIG was started on 02/17 (0.4 g/kg x 5 days) and she was accepted in transfer to [facility] neurology service. Further workup with pending studies as described above. Patient had a CT chest abdomen and pelvis with contrast on 02/17 showing no signs of malignancy or other abnormalities. All other medical problems were stable throughout this hospitalization. DISCHARGE EXAM: Vital Signs: Temp: 36.4 ??C (97.5 ??F) BP: 132/88 Pulse: 80 Resp: 17 SpO2: 96 % on O2 Flow Rate (L/min): 0 l/minNone (Room air) Temp Min: 36.3 ??C (97.4 ??F) Max: 36.7 ??C (98 ??F) Weight : 81 kg (178 lb 9.2 oz) Condition on Discharge: Good Disposition: Transfer to [facility] Follow up: Per [facility] discharge ? ? LEVEL OF DISCHARGE: 2, greater than 35 minutes spent arranging this discharge with greater than 50%was spent in counseling and/or coordination of care ? . documented in this encounter Medications at Time [...] times daily before meals. 90 Tablet 03/28/2022 quilbzsq-rws-yiga fum-folic ac 7.5 mg iron-400 mcg tablet [...] 1 Tablet by mouth at bedtime. 02/25/2024 acetaminophen (TYLENOL) 500 mg tablet Take 2 Tabs by mouth every 6 hours. 07/14/2020 4 aspirin 81 mg EC tablet Take 1 Tablet by mouth daily. 4 bisacodyL (DULCOLAX) [address] 1 Suppository rectally daily as needed for Constipation. 02/25/2024 4 bisacodyL (DULCOLAX) 5 mg EC tablet Take 2 Tablets by mouth daily. 4 buPROPion (WELLBUTRIN SR) 200 mg SR tablet Take 1 Tablet by mouth daily. 30 Tablet 1 03/29/2022 4 cyanocobalamin (VITAMIN B12) 1,000 mcg/mL injection Inject 1 mL into the muscle daily. 02/25/2024 4 folic acid (FOLVITE) 1 mg tablet Take 1 Tablet by mouth daily. 02/25/2024 4 ibuprofen (MOTRIN) 200 mg tablet Take 2 Tablets by mouth 3 times daily as needed for Pain. 4 melatonin 5 mg tablet Take 2 Tablets by mouth at bedtime. 4 methocarbamoL (ROBAXIN) 500 mg tablet Take 1 Tablet by mouth 2 times daily as needed for Pain or Muscle Spasms. 02/25/2024 4 methocarbamoL (ROBAXIN) 500 mg tablet Take 1 Tablet by mouth 2 times daily. 4 OLANZapine (ZYPREXA) 20 mg tablet Take 1 Tablet by mouth at bedtime. 12/05/2022 4 propRANolol (INDERAL) 10 mg tablet TAKE 1 TABLET BY MOUTH EVERY MORNING, 1 TABLET EVERY AFTERNOON AND 2 TABLETS EVERY NIGHT AT BEDTIME NEEDED FOR ANXIETY. 360 Tablet 3 01/08/2024 4 documented as of this encounter Discharge Disposition Disposition Code Departure Means Destination Comment s [facility] (Acute Care Facility) documented in this encounter Progress Notes * Eneida Tafoya SLP - 02/20/2024 0004 EDT [facility] Speech-Language Pathology Discharge Not Seen Summary BILLET GRINDER Diagnosis: Dysphagia, oropharyngeal phase: Medical Diagnosis: Sprain of left ankle, unspecified ligament, initial encounter Date of Onset: 02/16/24 Date of Referral: 02/16/24 Referring Provider: Noreen KELLY Date of evaluation: 02/17/24 CURRENT STATUS Current Diet: Dysphagia 5/minced and moist, thin liquids Functional Communication Status: see evaluation THERAPY TO DATE: evaluation, diet modification, strategy development. Patient discharged prior to receiving therapy Please refer to last treatment note for patient's status and progress toward goals. PLAN OF CARE Discharge Disposition: transferred to [facility]. Recommendations: continue BILLET GRINDER at [facility]. Continue diet order. ERIKA Morales 02/20/2024 13:05 * Olivia Vegas OT - 02/20/2024 0004 EDT [facility] Occupational Therapy Discontinue/Discharge Note Date: 02/21/2024 SUBJECTIVE: None OBJECTIVE: The patient has been discharged from the hospital. Please refer to the last Occupational Therapy Progress Note for details. ASSESSMENT: Pt transferred to [facility] GOALS: All goals discontinued. PLAN: Discontinue occupational therapy. Recommend continued OT as appropriate at next level of care Olivia Vegas OT 02/21/2024 13:15 * Sung Scruggs RN - 02/19/2024 2354 EDT Assumed care of patient at 1900, AxOx3, difficulty word finding noted, lungs clear over dim, vitalsstable until around 2200 when pressure reported by EDGER RUNNER was 85/49 immediately placed patient in trendelenburg and MD was paged. Order for bolus obtained and repeat pressure was 122/79. EMS arrived to transport patient to [facility], bedside report given. Report called to AZALEA Honeycutt. Sister was update withplan of care and transfer. Patient left unit stable. * Mary Smith, STIVEN - 02/19/2024 1838 EDT Nutrition Follow-Up S: No subjective information obtained today. Pt occupied with other staff members at time of f/u visit. O: Diet Rx: Dysphagia, minced & moist, thin liquids, mighty shakes. Meds: Current Facility-Administered Medications Medication Route Frequency acetaminophen (TYLENOL) tablet 975 mg oral TID alteplase (CATHFLO ACTIVASE) injection 2 mg intercatheter PRN aluminum & magnesium hydroxide-simethicone (MAALOX PLUS) 200-200-20 mg/5 mL suspension 30 mL oral Q6H PRN apixaban (ELIQUIS) tablet 2.5 mg oral BID [START ON 02/20/2024] bisacodyL (DULCOLAX) EC tablet 10 mg oral DAILY buPROPion (WELLBUTRIN SR) SR tablet 100 mg oral BID calcium carbonate (TUMS) tablet 500 mg (200 mg elemental calcium) 2 Tablet oral Q6H PRN carbamide peroxide (DEBROX) 6.5 % otic solution 5 Drop both ears QID PRN diphenhydrAMINE (BENADRYL) injection 50 mg intravenous PRN EPINEPHrine (ADRENALIN) injection 0.3 mg intramuscular PRN folic acid (FOLVITE) tablet 1 mg oral DAILY HYDROmorphone (DILAUDID) tablet 1 mg oral Q12H PRN immune globulin (PRIVIGEN) 10 % injection 30 g intravenous DAILY lactated ringers (LR) infusion intravenous Once (Time Specified) lactulose retention enema (200 gm/300 mL lactulose + 700 mL tap water) 200 g rectal BID PRN lidocaine (GLYDO/URO-JET) 2 % jelly in applicator topical PRN lidocaine (PF) 10 mg/mL (1 %) injection 2 mg intradermal PRN lidocaine (PF) 10 mg/mL (1 %) injection 5 mg intradermal PRN magnesium (MAGTAB) ER tablet 84 mg oral DAILY melatonin tablet 9 mg oral QHS methocarbamoL (ROBAXIN) tablet 500 mg oral QID PRN methylPREDNISolone sod suc(PF) (SOLU-MEDROL) injection 100 mg intravenous PRN metoclopramide HCl (REGLAN) tablet 5 mg oral TID AC OLANZapine (ZYPREXA) tablet 20 mg oral QHS ondansetron (ZOFRAN-ODT) disintegrating tablet 4 mg oral Q4H PRN Or ondansetron (PF) (ZOFRAN) injection 4 mg intravenous Q4H PRN pantoprazole (PROTONIX) injection 40 mg intravenous DAILY polyethylene glycol 3350 (MIRALAX) packet 17 g oral BID Prazosin (MINIPRESS) capsule 1 mg oral QHS pregabalin (LYRICA) capsule 100 mg oral BID propRANolol (INDERAL LA) SR capsule 60 mg oral DAILY propRANolol (INDERAL) tablet 10 mg oral TID PRN ramelteon (ROZEREM) tablet 8 mg oral AT BEDTIME PRN senna (SENOKOT) tablet 2 Tablet oral QHS Lab Results Component Value Date/Time WBC 4.53 02/14/2024 10:00 HGB 12.3 02/14/2024 10:00 HCT 35.2 02/14/2024 10:00 MCV 99 (H) 02/14/2024 10:00 NA 132 (L) 02/19/2024 06:11 K 4.2 02/19/2024 06:11 CO2 25 02/19/2024 06:11 CL 108 02/19/2024 06:11 BUN 11 02/19/2024 06:11 CREATININE 0.64 02/19/2024 06:11 SERGLU 98 02/19/2024 06:11 CALCIUM 8.9 02/19/2024 06:11 PHOS 3.1 02/12/2024 06:22 MG 1.6 (L) 02/19/2024 06:11 Wt Readings from Last 5 Encounters: 02/19/24 81 kg (178 lb 9.2 oz) 09/11/23 94.3 kg (207 lb 14.4 oz) 05/23/23 96.2 kg (212 lb) 08/01/22 63.9 kg (140 lb 14 oz) 03/28/22 60.5 kg (133 lb 4.8 oz) Weights Filed This Admission 02/04/24 1713 02/17/24 0345 02/19/24 1500 Weight: 83.8 kg (184 lb 12.8 oz) 79.5 kg (175 lb 4 oz) 81 kg (178 lb 9.2 oz) PO: Recent documentation shows 0-25% of meals. Skin: Skin Integrity: Abrasion GI: Last BM: 02/13/25 (Per patient) A: Pt followed by BILLET GRINDER. Current diet order dysphagia, minced&moist, thin liquids. Pt continues with overall poor intake. Mighty shakes on meal trays to assist in meeting caloric and protein needs.Pt being offered homemade milkshakes with beneprotein and mighty shakes as a calorie dense food option at mealtime. BILLET GRINDER note on 02/17 notes pt able to have PB&J on spoon. Monitor for further BILLET GRINDER diet recommendations. Continue to encourage good PO intake at mealtime and consumption of caloricallydense foods. New wt obtained on 02/19/24. Pt was 79.493 kg on 02/17/2024. Pt now documented to be 81 kg on 02/19/2024. This is a ~3.3 lb wt gain. Monitor trends to further assess nutritional status. Pt noted to have trace left lower extremity edema. Monitor trends. Plan: -Continue diet as ordered. Encourage good intake at mealtime and consumption of calorically dense foods -Continue menu assist -Monitor intake, appetite, weight, skin, labs, bowel movements, plan of care. -RD following. Mary Smith MS, RD, CD. * Ly Doan, RT - 02/19/2024 1353 EDT Respiratory Consult/Progress Note Indications for Respiratory therapy: Diagnosis of AIDP Data Vitals: Heart Rate: 90 BPM, Resp: 17, SpO2: 95 % FIO2/O2 Device: O2 Flow Rate (L/min): 0 l/min, , O2 Device: None, RT Orders:every day Pulmonary Mechanics Protocol Scoring: Bronchodilator/Inhalation Therapy Frequency Bronchodilator - Clinical Indications: No clinical indications Breath Sounds: Any abnormal BS decreased Response: No change / no treatment Pulse: <100 Resp Rate: <18 SOB: With exertion Total Score: 2 Comment:: prn Frequency Based On Total Score: 0-4 = PRN 5-7 = QID 8-10 = Q4H 11-12 = Q2H Airway Clearance Therapy Frequency Airway Clearance - Clinical Indications: No clinical indications Breath Sounds: Clear / diminished Sputum: Small (tsp) / None Consistency: None Cough Effort: Strong/ non-productive Color: None Total Score: 0 Comment: prn Frequency Based On Total Score: 0-3 = PRN 4-6 = QID and PRN 7-9 = Q4H and PRN 10-11 = Q2H and PRN Hyperinflation Therapy Frequency Hyperinflation - Clinical Indications: Prevent atelectasis Breath Sounds: Other (diminished) Surgery: No X-Ray / Atelectasis: No O2 Requirements: O2 at baseline Mobility Status: In bed Total: 4 Comment: qid Frequency Based On Total Score: 0-3 = PRN 4-6 = QID and PRN 7-9 = Q4H and PRN 10-12 = Q2H and PRN Action/Events Respiratory events; No respiratory events. Patient comfortable on room air at rest. NIF+-22 cmH2O, FVC=1.18L RT KINJAL 02/19/24 * Rubin Ying - 02/19/2024 1216 EDT Case Management Progress Note: Level of Care: Acute. Discharge Plan/Estimated Date of Discharge: [facility] when bed is available. Insurance/Payor Source: Medicare. Barriers to Discharge: IVIG through 02/22/24. Will transfer to [facility] when bed available. Support Network: Lucille Valles. Transportation: Ambulance. Continued Planning: CM will continue to follow. IMPORTANT: Patient has a bed at [facility] when she is medically ready. Please contact Emily Barr of the [facility] to make referral when ready. Her number is [phone], * Maninder Li MD - 02/19/2024 1215 EDT MEDICINE PROGRESS NOTE Reason for Admission Ynes was admitted with a chief complaint of weakness whose principal diagnosis is AIDP Date of Admission 02/04/24 SUBJECTIVE No complaints on morning of 02/18 Review of Systems Complete review of systems was performed and was negative except as noted above OBJECTIVE Vital signs are unremarkable Chemistry notable for improved sodium of 132, magnesium of 1.6 Physical Exam General: Alert, no distress Psychologic: Mood and affect normal CVS: S1, S2, no mrg Extremities: No edema Respiratory: No wheezes of crackles GI: BS present. Soft, non-tender Neurologic: Alert, receptive aphasia apparent, able to lift arms against gravity, power 3/5 in UE muscle groups, 2/5 power in RLE, LLE in boot Integument: No lesions MSK: Able to move all extremities without difficulty ASSESSMENT Ynes White is a 54 year-old female with prior left cerebral venous thrombosis complicated by left hemispheric intracerebral hemorrhage, complicated by focal onset seizures, hemorrhagic stroke with residual neurogenic bladder and left-sided sensory changes, provoked PE on low-dose apixaban forsecondary prevention, memory disorder with legal guardianship (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 She was admitted after a fall and fracture of her left ankle on 02/03, which is being managed non-operatively, UTI, ileus, and B12 deficiency. After admission, it was noticed that she had worsening weakness in her UEs and RLE (LLE is in boot), which was severe. Neurology was consulted and workup forAIDP was completed - CSF showed isolated elevation of protein and EMG was suggestive of AIDP. IVIG was started on 02/17 and she was accepted for transfer to [facility] neurology service. PRINCIPAL PROBLEMS # AIDP, unclear precipitant but most likely one of the acute illnesses earlier in admission (e.g. UTI) Impression: Her sister Lucille reports that since December, Ynes has become progressively weaker.Before then, she was able to go grocery shopping with [place], but in the month since, she has become progressively weaker and more dependent on others for ADLs and IADLs. During this admission, she has been found to have colonic pseudo-obstruction, urinary retention, progressive weakness in UE and LE, which in combination with isolated elevation of protein in CSF and abnormal EMG is consistent with AIDP. IVIG 0.4 g/kg for 5 days (last day of treatment on 02/21) Daily pulmonary mechanics, and if needed (no respiratory involvement so far) Follow SSA/SSB, serum paraneoplastic autoantibody panel, serum demyelinating neuropathy panel, CSF West Nile Virus testing CT qmbwm-lnaqbbb-mfareh W / contrast on 02/17 showed no sign of malignancy or other abnormality Accepted for transfer to [facility] neurology service, awaiting bed PT, OT, BILLET GRINDER following # Ileus / Pseudo-obstruction, earlier in admision Continue metoclopramide, senna, Miralax BID, PO bisacodyl. PRN [place] lactulose - I discussed importance of taking these medications with Ynes (she has declined them at times Minimize opiates, monitor electrolytes. Currently Ynes has no abdominal pain, bloating etc. Monitor for same, and re-image if concerns develop # B12 deficiency, suspected pernicious anemia # Folate deficiency: Continue PO folic acid Intrinsic factor antibody on 02/16 was positive, but Ynes had been administered B12 injection on 02/15, which can cause false positive IFAb test Stop B12 injections for now (B12 level is now in normal range), repeat IFAb on 03/01 OTHER CONDITIONS # Avulsion fracture of left ankle: Boot in place, scheduled acetaminophen, PRN PO hydromorphone 1 mg Q 12 H. PT recommends ABDIAZIZ when acute illnesses are treated. # Chronic pain: WASH AND GREASER pregabalin, WASH AND GREASER PRN methocarbamol # UTI, caused by dickens-sensitive E.Coli: Course of ceftriaxone completed # Prior cerebral venous sinus thrombosis and provoked PE: Resume WASH AND GREASER apixaban on 02/18 (it was held to allow for LP) # Hypertension: Propranolol # Hypomagnesemia: Switch to ER magnesium 84 mg daily, monitor level # Hyponatremia, mild, asymptomatic, likely hypovolemic, improving: Monitor, encourage PO intake, consider IV fluids if PO intake is inadequate # Depression / Anxiety / PTSD: WASH AND GREASER bupropion, olanzapine, prazosin, propranolol # GERD: WASH AND GREASER PPI MISCELLANEOUS # Full code # VTE Prophylaxis: WASH AND GREASER apixaban # Dysphagia diet # Person to contact: Sister Lucille, who is her legal guardian # Discharge Plan: Awaiting transfer to [facility] neurology department On this date, I spent 57 minutes caring for this patient. This time was spent reviewing the patient's medical chart; reviewing laboratory and imaging results; planning treatment; examining, evaluating, and counselling the patient; co- ordinating care across different hospital departments and services; placing orders; and discharge planning. * Aníbal Gee, PT - 02/19/2024 1014 EDT [facility] Physical Therapy Discontinue/Discharge Note Date: 02/19/2024 SUBJECTIVE: None OBJECTIVE: The patient has been discharged from the hospital. Will transfer to [facility]. Please refer to the last Physical Therapy Progress Note for details. ASSESSMENT: Unable to assess her current status as the patient was not seen for any additional therapy sessions. GOALS: All goals discontinued. PLAN: Discontinue physical therapy. ANÍBAL GEE, PT 02/19/2024 10:14 * Caren Gorman - 02/18/20241999 EDT Case Management Progress Note: Level of Care: acute Discharge Plan/Estimated Date of Discharge: [facility] Insurance/Payor Source: Medicare Barriers to Discharge: LP preformed, waiting on results Support Network: sister Transportation: ambulance Continued Planning: Patient is not medically ready for rehab. LP was done and MD Polk recommended IVIG for 5 days and transfer to [facility]. Patient is on transfer list. Patient [facility] have [facility] bed [facility] for when she is medically ready. Unsure ifthis would change due to patient not being medically ready and depending how long her hospitalization lasts. * Omaira Tao, RN - 02/18/2024 1937 EDT IVIG infusion started per JAN, this RN sat w/ pt for 20 min per policy, no adverse reactions noted so far. * Poly Fajardo, ERIKA - 02/18/2024 1311 EDT Speech-Language Pathology Encounter Note Date of Onset: 02/16/24 BILLET GRINDER Diagnosis: Dysphagia, oropharyngeal phase: Medical Diagnosis: Sprain of L ankle, unspecified ligament, initial encounter Start Time: 1420pm Total Therapy minutes: 15 minute(s) Subjective/Objective Subjective Patient found laying in bed with pillows to support positioning. Its been busy Thank you, either one Objective Date of Service: 02/18/2024 Time In: 1420pm Total Treatment Time: 15 minutes INTERVENTION: BILLET GRINDER received note from Attending regarding pleasure food/snack trial for peanut butter and jelly ludy spoon. On first approach, patient involved in ultrasound for her ankle (sprained due to fall). Second approach, patient very sleepy however able to answer questions. Patient does wish to have PBJ on spoon trials for quality of life, salty/sweet gustatory stimulation during upcoming sessions. No PO trials due to busy day with LP, EMG and other rehab sessions. BILLET GRINDER provided verbal/written education for caregiver staff regarding allowance of QOL snack, continue current strategies during meals. Patient verbalized understanding of education, will support further as indicated. Patient/Family Education: Topic: Patient/Family education and training was completed today including rehab goals and questions were addressed. Learner: patient and caregiver Method of Education: Verbal and Written Barriers to Learning/Education: patient's level of arousal and patient's inability to learn/carry over information at this time Patient: was able to verbalize understanding of information and needs further instruction and education Family: was able to verbalize understanding of information and needs further instruction and education Goals Progress on goals is as follows: -Patient will demonstrate optimum safety and efficiency of swallowing function for highest diet/liquid consistencies as indicated by skilled intervention or radiographically. (by date:02/24/24) *MINCED AND MOIST (Level 5, orange) and THIN LIQUIDS -Tolerate Thin liquids without evidence of coughing, choking, throat clearing, wet voice, etc...in : 90%( 18/ 20) of observed swallows using compensatory swallow strategies with min cues. (by date: 02/24/24) *NOT ASSESSED TODAY -Tolerate Dysphagia 6 consistency diet without overt s/s of dysphagia in 90 % ( 18 / 20) of observed swallows using strategies with min cues. (by date 02/24/24) *NOT ASSESSED TODAY Assessment/Plan Assessment/Clinical Impressions Ynes White is a 54 y.o. female with focal epilepsy, chronic low back pain, tremor, history ofcerebral venous sinus thrombosis complicated by hemorrhagic stroke with residual neurogenic bladderand left-sided sensory changes, and memory disorder with legal guardianship (sister) returned [place] [facility] [place] at home resulting in L ankle sprain. [facility] evaluation 02/17/24: patient has baseline aphasia, past L intracerebral hemorrhage, stroke, deconditioning/weakness. Current diet texture = minced and moist solids with thin liquids. Current UTI. Etiology concerning for demyelinating disease process versus deconditioning, EMG and LP happening today. Peanut butter and jelly (condiments only, no bread, presented on spoon) trials this date: Patient does wish to have PBJ on spoon trials for quality of life, salty/sweet gustatory stimulation during upcoming sessions. No PO trials due to busy day with LP, EMG and other rehab sessions. BILLET GR[facility]ER providedverbal/written education for caregiver staff regarding allowance of QOL snack, continue current strategies during meals. Patient verbalized understanding of education, will support further as indicated. Plan/Recommendations Continue BILLET GR[facility] services 3x/week until discharge. Unclear discharge plan (? ABDIAZIZ at St when medically ready as of PA note). CONTINUE MINCED AND MOIST SOLIDS, THIN LIQUIDS ENCOURAGE SELF FEEDING ABLE / LICKING SPOON OKAY FOR PBJ ERIKA SOSA 02/18/2024 13:11 * Victorina Macedo PA-C - 02/18/2024 1021 EDT Medicine Progress Note Service Date: 02/18/2024 Admit Date: 02/04/2024 11:38 Hospital Day: 13 PCP: Romario Quick Cindy is a 54 y.o. female with a chief complaint of Fall (Pt arrives via EMS who reports6 falls in last week and hx stroke two years ago. Pt states, my brain wouldn't let me shower todayand I fell down reports two falls today. LLE pain) now admitted with a diagnosis of Sprain of leftankle, unspecified ligament, initial encounter. 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 Subjective/Objective Subjective Nursing reports ongoing struggles with global weakness. Pt requires assistance with feeding. Has not gotten OOB or ambulated, PT now recommends hoya lift. She requires her medications be placed in pudding now. Is being offered sips of fluid whenever staff entered the room, as she cannot hold the cup. She is on a dysphagia diet, has nutritional supplements Reyes Continues, deferred trial of stopping reyes. PT: Yesterday deferred due to orthostatic hypotension. Noted to be functioning far below baseline. Today PT deferred till tomorrow due to LP and EMGs today. OT: UE strength at 2-3, requesting low pressure call farris, encouraged hand exercises. Attempted to visit 3 times between noon and 1:15, asleep. Met with patient she reported being very tired. She does not recall very much about her LP. She didnot recall that Dr Polk had been in and seen her. Reviewed [facility], PT notes and Neurology consult notes Review of Systems: As above Objective Vital Signs Temp: [36.3 ??C (97.3 ??F)-36.7 ??C (98 ??F)] ; Heart Rate: [85 BPM-90 BPM] , Pulse: --; BP: (78-149)/(58-95) ; Resp: [16-18] ; SpO2: [95 %-96 %] Physical Exam Gen: Sitting slouched in bed, simple answers to questions, nontoxic appearance although fatigued, mildly dysarthric, noted expressive and receptive aphasia worse today (tired) HEENT: EOMI, MMM, Neck: Supple, able to flex, extend and rotate CV: RRR, no m/r/g Pulm: CTAB, good air movement, room air Abd: Soft, mild distention, no tenderness to palpation no guarding /rebound Extrem: Warm and well perfused, no cyanosis or edema. : Reyes present sedimentous yellow urine Skin: No acute appearing rash. Warm and dry. Sacrum not examined Psych: flat affect , fatigued. Neuro: Some intermittent aphasia, LE muscle tone flaccid , unable to raise arms off bed, could slide arms up body to face, but not lift. Less strength with assistance had to hold under wrist, pt pulled hand away from my hands and hit her face with her hand. poor sensory perception to light touch B UE/LE, but sensed light squeeze on joints with inconsistencies. Unable to hold trunchal positioning comfortably, difficultly with price analyst, Meds: Current Facility-Administered Medications: acetaminophen (TYLENOL) tablet 650 mg, 650 mg, TID alteplase (CATHFLO ACTIVASE) injection 2 mg, 2 mg, PRN aluminum & magnesium hydroxide-simethicone (MAALOX PLUS) 200-200-20 mg/5 mL suspension 30 mL, 30 mL, Q6H PRN bisacodyL (DULCOLAX) suppository 10 mg, 10 mg, DAILY buPROPion (WELLBUTRIN SR) SR tablet 100 mg, 100 mg, BID calcium carbonate (TUMS) tablet 500 mg (200 mg elemental calcium) 2 Tablet, 2 Tablet, Q6H PRN carbamide peroxide (DEBROX) 6.5 % otic solution 5 Drop, 5 Drop, QID PRN cefTRIAXone (ROCEPHIN) 1,000 mg in sodium chloride (NS MBP) 50 mL IVPB, 1,000 mg, DAILY [START ON 02/23/2024] cyanocobalamin (VITAMIN B12) injection 1,000 mcg, 1,000 mcg, WEEKLY folic acid (FOLVITE) tablet 1 mg, 1 mg, DAILY lactulose retention enema (200 gm/300 mL lactulose + 700 mL tap water) 200 g, 200 g, BID PRN lidocaine (GLYDO/URO-JET) 2 % jelly in applicator, , PRN lidocaine (PF) 10 mg/mL (1 %) injection 2 mg, 2 mg, PRN lidocaine (PF) 10 mg/mL (1 %) injection 5 mg, 5 mg, PRN magnesium oxide (MAG-OX) tablet 400 mg, 400 mg, BID melatonin tablet 9 mg, 9 mg, QHS methocarbamoL (ROBAXIN) tablet 500 mg, 500 mg, QID metoclopramide HCl (REGLAN) tablet 5 mg, 5 mg, TID AC OLANZapine (ZYPREXA) tablet 20 mg, 20 mg, QHS ondansetron (ZOFRAN-ODT) disintegrating tablet 4 mg, 4 mg, Q4H PRN OR ondansetron (PF) (ZOFRAN)injection 4 mg, 4 mg, Q4H PRN pantoprazole (PROTONIX) injection 40 mg, 40 mg, DAILY polyethylene glycol 3350 (MIRALAX) packet 17 g, 17 g, DAILY Prazosin (MINIPRESS) capsule 1 mg, 1 mg, QHS pregabalin (LYRICA) capsule 100 mg, 100 mg, BID propRANolol (INDERAL LA) SR capsule 60 mg, 60 mg, DAILY propRANolol (INDERAL) tablet 10 mg, 10 mg, TID PRN ramelteon (ROZEREM) tablet 8 mg, 8 mg, AT BEDTIME PRN senna (SENOKOT) tablet 2 Tablet, 2 Tablet, QHS Labs: Results for orders placed or performed during the hospital encounter of 02/04/24 (from the past 24 hour(s)) GLUCOSE, SERUM Result Value Ref Range Glucose 109 (H) 70 - 99 mg/dl MAGNESIUM Result Value Ref Range Magnesium 1.9 1.7 - 2.8 mg/dL BASIC METABOLIC PANEL (BMP) Result Value Ref Range Sodium 131 (L) 136 - 145 mmol/L Potassium 4.1 3.5 - 5.0 mmol/L Chloride 102 96 - 110 mmol/L CO2 Total 24 22 - 32 mmol/L Anion Gap 5 5 - 14 mmol/L Glucose 109 (H) 70 - 99 mg/dl Calcium 8.7 8.5 - 10.5 mg/dL BUN 14 10 - 26 mg/dL Creatinine 0.54 0.52 - 1.04 mg/dL eGFR 108 >60 mL/min/1.73m2 HOLD LAVENDER TOP Result Value Ref Range Hold Hold Test results still pending from this admission Procedure Component Value Units Date/Time IgA [[id number]] Collected: 02/18/24629 Lab Status: In process Specimen: Blood, Venous Updated: 02/18/24 0643 GM1 Autoantibody [[id number]] Collected: 02/18/24629 Lab Status: In process Specimen: Blood, Venous Updated: 02/18/24 0640 Miscellaneous Test, Vyas [[id number]] Collected: 02/17/24635 Lab Status: In process Specimen: Blood, Venous Updated: 02/17/24 1747 Intrinsic Factor Antibody [[id number]] Collected: 02/17/24636 Lab Status: In process Specimen: Blood, Venous Updated: 02/17/24 0647 Methylmalonic Acid [[id number]] Collected: 02/17/2437 Lab Status: In process Specimen: Blood, Venous Updated: 02/17/24 0647 Bacterial Culture, Blood [[id number]] Collected: 02/14/24 1000 Lab Status: In process Specimen: Blood, Venous Updated: 02/14/24 1015 Bacterial Culture, Blood [[id number]] Collected: 02/14/24 1000 Lab Status: In process Specimen: Blood, Venous Updated: 02/14/24 1014 Micro: No results found for this or any previous visit (from the past 24 hour(s)). I reviewed the patient's laboratory studies for today. Recent Imaging: Assessment/Plan Assessment Ynes White is a 54 y.o. 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 Found to have 2 small avulsion fractures left ankle. Will need ABDIAZIZ per PT recommendations. Hospital course complicated by B12 and folate deficiency, hypomagnesemia, ileus, retained desiccated stool, elevated LFTs, enlarged gallbladder, persistent ileus, and progressive weakness. 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 Advancing diet, trying to eat more.. Presently without indication for neostigmine or surgery. In addition to her ileus she has developed some urinary retention and UTI which is pansensitive to Ceftriaxone. Her weakness has been progressive over her hospitalization. Neurology is involved, she is weaker today than yesterday, Plan #Marked weakness with concern demyelinating disease vs deconditioning -Neurology consulted appreciate Dr. Cool's consult Saturday and Dr. Polk involvement, SEE NOTES -MRI Head and neck without contrast no acute changes, chronic persistent large old infarct. -LP done, elevated protein, VZV, HSV, enterovirus, bacterial stain pending - IgA level done, ganglioside antibody panel ([id number]) and west nile virus pending - ordered SSA/SSB in case of Sjogren's disease, paraneoplastic autoantibody panel on serum, ([facility] , code: PAVAL) and demyelinating neuropathy panel on serum (use [facility] order and enter CIDPas the code) -CT chest/abd pelvis with contrast pending -Transfer to [facility], bed should be available tomorrow, accepting, Dr. Polk gave handoff -Transfer center will notify 2S when bed available -Dr. Li will continue to follow and coordinate discharge. #Urinary retention with UTI: -Reyes catheter placed 02/12/24 consider discontinuation trial -Ceftriaxone 1 gram daily x6, discontinued after todays dose -DC'd opiates #tachycardia/HTN -Propranolol ER 60 mg daily -continue PRN propranolol 10 mg for anxiety # Ileus, intestinal pseudoobstruction -Last BM 02/13, patient using senna at bedtime and declining MiraLAX and Dulcolax. -CT scan 02/08 with 7 cm cecum -X-ray 02/09 & persistent air-filled bowel loops, decreasing -Clinically improved with less nausea and advancing diet as well as responsive bowel clean out. -Appreciate general surgery consultation, Signed off today 02/14/24 -Dysphagia diet, no indication for neostigmine or surgery at this time. -Opiates have been stopped -Ambulation/movement encouraged, currently unable, continue PT consult. -Keep electrolytes repleted. - IV LR 100/hr ordered today, 2L and reassess. # Enlarged gallbladder -Noted on CT. Ultrasound with fatty infiltrate of liver but no further gallbladder pathology. No further interventions for now # Left ankle avulsion fractures x 2 in the setting of recurrent falls -Walking boot/shoe -PT recommending ABDIAZIZ -Weight-bear as tolerated -Fall precautions -Analgesia with Tylenol which was changed to scheduled today, WASH AND GREASER Robaxin, WASH AND GREASER pregabalin, ibuprofen as needed -Avoiding opiate therapy as above # Electrolytes/hypomagnesemia, hypocalcemia -Potassium repleted and holding - magnesium repleted, but decreasiong, getting 2g every 2-3 days for bowel and supplementation -Originally started on oral mag, consider discontinue in favor of regular IV infusions.. # Macrocytosis with new B12 deficiency, folate deficiency -Unclear if B12 deficiency related to dietary intake or PPI use. -Intrinsic factor ab positive, but may be false pos due to having B12 injections recently -Started vitamin B12, folate supplements, -Outpatient follow-up for CBC recheck -Continue WASH AND GREASER PPI # Recent hyponatremia -Sodium stable. Following. Monitor volume status. # elevated homocystine - Lower than 12 days ago. Monitor Chronic conditions: Prior cerebral venous sinus thrombosis and provoked PE: WASH AND GREASER apixaban, WASH AND GREASER ASA Chronic pain- WASH AND GREASER pregabalin as above, WASH AND GREASER methocarbamol as above Mood- WASH AND GREASER Wellbutrin, WASH AND GREASER Zyprexa, WASH AND GREASER prazosin, WASH AND GREASER propranolol prn anxiety or tremor GERD- WASH AND GREASER PPI FEN: DIET DYSPHAGIA VTE Prophylaxis: apixaban Discharge Plan: ABDIAZIZ placement CODE STATUS: Full Code I spent 120 minutes caring for this patient today including >50% of time spent in counseling andcoordination of care. Time spent in review of the medical chart, review of labs, review of imaging,examining and evaluating the patient, discussion with consultants, placing orders, and coordinationof care with the patient and patient's family , Dr Li and Dr Jam Macedo PA-C 02/18/2024 18:23 * Aníbal Gee, PT - 02/18/2024 1001 EDT [facility] Contact Note Date of Service: 02/18/2024 Patient is unavailable for therapy today due to LP and EMG procedures. Will resume 02/18. ANÍBAL GEE, PT 02/18/2024 10:02 * Victorina Macedo PA-C - 02/17/2024 1616 EDT Medicine Progress Note Service Date: 02/17/2024 Admit Date: 02/04/2024 11:38 Hospital Day: 12 PCP: Romario Hairston Ynes White is a 54 y.o. female with a chief complaint of Fall (Pt arrives via EMS who reports6 falls in last week and hx stroke two years ago. Pt states, my brain wouldn't let me shower todayand I fell down reports two falls today. LLE pain) now admitted with a diagnosis of Sprain of leftankle, unspecified ligament, initial encounter. 24 Hour Events: Progressive weakness lower extremities worse than upper, Neuro consults Urinary retention with reyes cath Holding lovenox for LP possibly tomorrow Subjective/Objective Subjective Nursing reports ongoing struggles with global weakness and anxiety. Pt requires assistance with feeding. Has not gotten OOB or ambulated. She requires her medications be placed in pudding now. She sara a dysphagia diet. Reyes Continues, deferred trial of stopping reyes for upcoming LP and possiblyEMG tomorrow. Nursing reported later afternoon that Ynes's BP is low - 86/59 on left arm and 78/58 on the right. She isnt really able to tell me if she feels lightheaded or dizzy. Repeated PT: Episode orthostatic VS supine and sitting only with PT: : supine 120/83 102 bpm 98% sittin/79, 105 bpm patient reported signficant dizziness, able to tolerate sitting for 5-7 minutes, then transferred supine, Pt reports that she feels weak. She denies being able to lift her arms, which she could do and holdyesterday. Today with holding one finger under her finger for a little support she could lift. Weakness was slightly more prominent on the right UE. She had difficulty passing a plastic spoon from 1 hand to the other. She was able to lift it to her mouth, but would not have gotten any soup. She denies abdominal pain. Denies fevers or chills. No BM, thought she was going to have one yesterday but did not. Today is considered a hoya lift to the cammode. Thinks she is passing gas. Nursing was unsure if Reyes should be pulled due to weakness, we decided to postpone trial off Reyes. Reviewed [facility]LET [facility], PT notes and Neurology consult notes Review of Systems: As above Objective Vital Signs Temp: [36.3 ??C (97.3 ??F)-36.6 ??C (97.8 ??F)] ; Heart Rate: [85 BPM-90 BPM] , Pulse: [80] ; BP: (78-141)/(58-94) ; Resp: [16-18] ; SpO2: [96 %-97 %] Physical Exam Gen: Sitting slouched in bed, simple answers to questions, nontoxic appearance although fatigued, mildly dysarthric HEENT: EOMI, MMM, Neck: Supple, able to flex, extend and rotate CV: RRR, no m/r/g Pulm: CTAB, good air movement, room air Abd: Soft, mild-moderate distention, minimal tenderness to palpation throughout all quadrants no guarding or rebound no peritoneal signs Extrem: Warm and well perfused, no cyanosis or edema. : Reyes present sedimentous yellow urine Skin: No acute appearing rash. Warm and dry. Sacrum not examined Psych: flat affect but able to smile and laugh, alert and oriented. Neuro: Some intermittent aphasia, LE muscle tone flaccid , areflexic UE, decreased sensory perception to light touch bilateral lower and upper extremities, but sensed light squeeze on joints , some inconsistencies. Unable to hold trunchal positioning comfortably, difficultly with price analyst, but could hold plastic spoon. Meds: Current Facility-Administered Medications: acetaminophen (TYLENOL) tablet 650 mg, 650 mg, TID alteplase (CATHFLO ACTIVASE) injection 2 mg, 2 mg, PRN aluminum & magnesium hydroxide-simethicone (MAALOX PLUS) 200-200-20 mg/5 mL suspension 30 mL, 30 mL, Q6H PRN bisacodyL (DULCOLAX) suppository 10 mg, 10 mg, DAILY buPROPion (WELLBUTRIN SR) SR tablet 100 mg, 100 mg, BID calcium carbonate (TUMS) tablet 500 mg (200 mg elemental calcium) 2 Tablet, 2 Tablet, Q6H PRN carbamide peroxide (DEBROX) 6.5 % otic solution 5 Drop, 5 Drop, QID PRN cefTRIAXone (ROCEPHIN) 1,000 mg in sodium chloride (NS MBP) 50 mL IVPB, 1,000 mg, DAILY cyanocobalamin (VITAMIN B-12) tablet 1,000 mcg, 1,000 mcg, DAILY [START ON 02/23/2024] cyanocobalamin (VITAMIN B12) injection 1,000 mcg, 1,000 mcg, WEEKLY enoxaparin (LOVENOX) injection 80 mg, 1 mg/kg, Q12H folic acid (FOLVITE) tablet 1 mg, 1 mg, DAILY lactated ringers BOLUS 500 mL, 500 mL, Now lactulose retention enema (200 gm/300 mL lactulose + 700 mL tap water) 200 g, 200 g, BID PRN lidocaine (GLYDO/URO-JET) 2 % jelly in applicator, , PRN lidocaine (PF) 10 mg/mL (1 %) injection 2 mg, 2 mg, PRN lidocaine (PF) 10 mg/mL (1 %) injection 5 mg, 5 mg, PRN magnesium oxide (MAG-OX) tablet 400 mg, 400 mg, BID magnesium sulfate 2 g in water 50 mL, 2 g, Now melatonin tablet 9 mg, 9 mg, QHS methocarbamoL (ROBAXIN) tablet 500 mg, 500 mg, QID metoclopramide HCl (REGLAN) tablet 5 mg, 5 mg, TID AC OLANZapine (ZYPREXA) tablet 20 mg, 20 mg, QHS ondansetron (ZOFRAN-ODT) disintegrating tablet 4 mg, 4 mg, Q4H PRN OR ondansetron (PF) (ZOFRAN)injection 4 mg, 4 mg, Q4H PRN pantoprazole (PROTONIX) injection 40 mg, 40 mg, DAILY polyethylene glycol 3350 (MIRALAX) packet 17 g, 17 g, DAILY Prazosin (MINIPRESS) capsule 1 mg, 1 mg, QHS pregabalin (LYRICA) capsule 100 mg, 100 mg, BID propRANolol (INDERAL LA) SR capsule 60 mg, 60 mg, DAILY propRANolol (INDERAL) tablet 10 mg, 10 mg, TID PRN ramelteon (ROZEREM) tablet 8 mg, 8 mg, AT BEDTIME PRN senna (SENOKOT) tablet 2 Tablet, 2 Tablet, QHS Labs: Results for orders placed or performed during the hospital encounter of 02/04/24 (from the past 24 hour(s)) MAGNESIUM Result Value Ref Range Magnesium 1.6 (L) 1.7 - 2.8 mg/dL BASIC METABOLIC PANEL (BMP) Result Value Ref Range Sodium 131 (L) 136 - 145 mmol/L Potassium 4.1 3.5 - 5.0 mmol/L Chloride 105 96 - 110 mmol/L CO2 Total 24 22 - 32 mmol/L Anion Gap 2 (L) 5 - 14 mmol/L Glucose 109 (H) 70 - 99 mg/dl Calcium 8.9 8.5 - 10.5 mg/dL BUN 15 10 - 26 mg/dL Creatinine 0.53 0.52 - 1.04 mg/dL eGFR 108 >60 mL/min/1.73m2 HOMOCYSTEINE Result Value Ref Range Homocysteine 34.4 (H) 5.0 - 13.9 umol/L Test results still pending from this admission Procedure Component Value Units Date/Time Intrinsic Factor Antibody [[id number]] Collected: 02/17/24636 Lab Status: In process Specimen: Blood, Venous Updated: 02/17/24646 Methylmalonic Acid [[id number]] Collected: 02/17/24636 Lab Status: In process Specimen: Blood, Venous Updated: 02/17/24646 Bacterial Culture, Blood [[id number]] Collected: 02/14/24 1000 Lab Status: In process Specimen: Blood, Venous Updated: 02/14/24 1015 Bacterial Culture, Blood [[id number]] Collected: 02/14/24 1000 Lab Status: In process Specimen: Blood, Venous Updated: 02/14/24 1014 Micro: No results found for this or any previous visit (from the past 24 hour(s)). I reviewed the patient's laboratory studies for today. Recent Imaging: Assessment/Plan Assessment Ynes hWite is a 54 y.o. 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 Found to have 2 small avulsion fractures left ankle. Will need ABDIAZIZ per PT recommendations. Hospital course complicated by B12 and folate deficiency, hypomagnesemia, ileus, retained desiccated stool, elevated LFTs, enlarged gallbladder, persistent ileus, and progressive weakness. 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 Advancing diet, trying to eat more.. Presently without indication for neostigmine or surgery. In addition to her ileus she has developed some urinary retention and UTI which is pansensitive to Ceftriaxone. Her weakness has been progressive over her hospitalization. Neurology is involved, and is working up for demyelinating disease. Plan #Marked weakness with concern demyelinating disease vs deconditioning -Neurology consulted appreciate Dr. Cool's consult Saturday and Dr. Polk today -MRI Head and neck without contrast no acute changes, chronic persistent large old infarct. -LP scheduled for 1030 tomorrow, orders placed per Dr. Polk note, protein, glucose (with serum glucose also), cell count and differential, VZV, HSV, enterovirus, bacterial stain. - IgA level, as well as ganglioside antibody panel ([id number]) and west nile virus ordered on serum -PT and OT to ekta -BILLET GRINDER swallow and treament consult completed, dysphagia diet. -change Vitamin B12 to IM given her GI symptoms. #Urinary retention with UTI: -Reyes catheter placed 02/12/24 consider discontinuation trial after LP/EMG studies -Ceftriaxone 1 gram daily x 7 days (reyes placed before antx started) -DC'd opiates #tachycardia/HTN -Propranolol ER 60 mg daily -continue PRN propranolol 10 mg for anxiety -post LR bolus x 500 cc 02/16 with 2 g magnesium # Ileus, intestinal pseudoobstruction -Last BM 02/13, patient using senna at bedtime and declining MiraLAX and Dulcolax. -CT scan 02/08 with 7 cm cecum -X-ray 02/09 & persistent air-filled bowel loops, decreasing -Clinically improved with less nausea and advancing diet as well as responsive bowel clean out. -Appreciate general surgery consultation, Signed off today 02/14/24 -Dysphagia diet, no indication for neostigmine or surgery at this time. -Opiates have been stopped -Ambulation/movement encouraged, currently unable, continue PT consult. -Keep electrolytes repleted. # Enlarged gallbladder -Noted on CT. Ultrasound with fatty infiltrate of liver but no further gallbladder pathology. No further interventions for now # Left ankle avulsion fractures x 2 in the setting of recurrent falls -Walking boot/shoe -PT recommending ABDIAZIZ -Weight-bear as tolerated -Fall precautions -Analgesia with Tylenol which was changed to scheduled today, WASH AND GREASER Robaxin, WASH AND GREASER pregabalin, ibuprofen as needed -Avoiding opiate therapy as above # Electrolytes/hypomagnesemia, hypocalcemia -Potassium repleted and holding - magnesium repleted, but decreasiong, adding 2g IV today for bowels and supplementation -start oral Magnesium oxide 400 mg BID today for both replacement and bowel function. # Macrocytosis with new B12 deficiency, folate deficiency -Unclear if B12 deficiency related to dietary intake or PPI use. - consider measuring intrinsic factor if she becomes anemic -Started vitamin B12, folate supplements, -Outpatient follow-up for CBC recheck -Continue WASH AND GREASER PPI # Recent hyponatremia -Sodium stable. Following. Monitor volume status. -LR 500 cc bolus today. # elevated homocystine - Chronic conditions: Prior cerebral venous sinus thrombosis and provoked PE: WASH AND GREASER apixaban, WASH AND GREASER ASA Chronic pain- WASH AND GREASER pregabalin as above, WASH AND GREASER methocarbamol as above Mood- WASH AND GREASER Wellbutrin, WASH AND GREASER Zyprexa, WASH AND GREASER prazosin, WASH AND GREASER propranolol prn anxiety or tremor GERD- WASH AND GREASER PPI FEN: DIET DYSPHAGIA VTE Prophylaxis: apixaban Discharge Plan: ABDIAZIZ placement CODE STATUS: Full Code I spent more than 50 minutes caring for this patient today including >50% of time spent in counseling and coordination of care. Time spent in review of the medical chart, review of labs, review ofimaging, examining and evaluating the patient, discussion with consultants, placing orders, and coordination of care with the patient and patient's family , Dr Li and Dr Jam Macedo PA-C 02/17/2024 17:39 * Olivia Vegas Pieter, OT - 02/17/2024 9827 EDT [facility] Occupational Therapy Initial Evaluation Note Date of Service: 02/17/2024 SUBJECTIVE: Subjective Statements Patient is currently having difficulty with: mobility, pain Patient/caregiver states: I have pain I don't know, I can't feel Patient/Caregiver Goals Patient and Caregiver Goals: Decrease pain Patient's Stated Pain Goal: No pain Reporting Person Subjective Information Reported by: Patient Pain Evaluation Pain Description: Intermittent left ankle pain, unable to rate. Pain Location: Ankle, Left OBJECTIVE: Patient Profile: Patient is a 54 y.o. female admitted on 02/04/2024 secondary to Sprain of left ankle, unspecified ligament, initial encounter. The patient lives at [address] [place] [address] [address] [place] [id number] Safety Assessment / Living Environment Home environment: House Basic Home Layout Home layout: One level Entrance Stairs: No entrance stairs Bathroom Accessibility: Accessible, Accessible via wheelchair Bedrooms/Bathrooms: Able to live on main level with bedroom/bathroom Indoor Stairs: No indoor stairs Mobility Equipment Mobility Equipment: Wheelchair Wheelchair Specifics: Manual wheelchair Support Support Person: Siblings Amount of Support: Intermittent Living Arrangement Lives With: Family Living Arrangement Comments: Sisters spread duties including housekeeping and frequent check ins. 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); Other specified postprocedural states; Paresthesia of skin; Procedure and treatment not carried out for other reasons; Solitary cyst of right breast; Solitary pulmonary nodule; Tremor, unspecified; Severe protein-calorie malnutrition (HCC-CMS); Neurogenic bladder as late effect of cerebrovascular accident (CVA); Acute left ankle pain [M25.572]; Closed avulsion fracture of medial malleolus of left tibia; Weakness; Sprain of left ankle, unspecified ligament, initial encounter; Failure to thrive in adult; Closedavulsion fracture of medial malleolus of left tibia, initial encounter; Hypomagnesemia; Ileus (HCC-CMS); Epigastric pain; Right upper quadrant abdominal pain; Hyponatremia; 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 PAST: The patient has a past medical history of Cerebral venous sinus thrombosis, Exercise involving walking (flat surfaces), History of cranial surgery, History of general anesthesia, Left-sided nontraumatic intracerebral hemorrhage (HCC-CMS) (Status post decompressive hemicraniectomy), Memory diso rder, Shoulder joint pain (right ), and UTI (urinary tract infection). Body Functions and Performance Skills Cardiovascular/Respiratory Systems Function: Vital Signs Position/Activity: rest Blood Pressure (mmHg): 92/58 Voice and Speech Voice and Speech Functions: Patient presents with expressive aphasia Voice and Speech Comments: seems to have receptive difficulties as well Mental Functions: Arousal/Alertness: Alert Orientation Level: Oriented to place Memory Memory: Decreased recall of recent events, Decreased short term memory Sensory Functions: Sensory Functions Sensory Function Additional Comments: sensory impairment both hands Vision - Basic Assessment Additional Comments: no indication pt wears glasses Additional Comments: pt indicated the numbers on the clock were clear and seemed to be able to see words on name badge/making out some letters, difficult to fully determine due to pt's communication challenges Neuromusculoskeletal and Movement Related Functions: Range of Motion: Within normal limits Range of Motion: bilat UEs Shoulder Strength (measured using 5-point scale, * indicates pain) Right Left Shoulder Flexion Shoulder Extension Shoulder Abduction 3- 3- Shoulder Adduction Shoulder Internal Rotation Shoulder External Rotation Other Elbow/Forearm Strength (measured using 5-point scale, * indicates pain) Right Left Elbow Flexion 3 3 Elbow Extension 2+ 2+ Forearm Pronation 2 2 Forearm Supination Other Wrist Strength (measured using 5-point scale, * indicates pain) Right Left Wrist Flexion Wrist Extension 3- 3- Ulnar Deviation Radial Deviation Other Finger Strength (measured using 5-point scale, * indicates pain) Right Left Gross Finger Flexion 2 2 Gross Finger Extension 3 2- Finger Abduction Finger Adduction Other Muscle Tone: low tone overall bilat UE General Coordination General Coordination: Problems noted Coordination Additional Comments: minimal ability to use hands functionally for any task Skin and Related Structure Functions: Left ankle boot in place, did not assess skin Areas of Occupation and Performance Skills Basic Activities of Daily Living: Feeding Feeding Comments: max A to total assist, pt quick to allow for full help due to effort needed to attempt Level of Assistance: Maximal assistance Grooming Grooming: oral care: bed level, very limited tolerance for participating with hand over hand assist Level of Assistance: Total assistance Mobility Comments: did not assess today Instrumental Activities of Daily Living: NT Informed Consent: Informed Consent: The patient consented to the Occupational Therapy evaluation. The patient agrees to and understands the Occupational Therapy treatment plan and goals. Interventions Completed Today: Occupational Therapy Today At: Time: 1400 Total Treatment Time (minutes): 30 Timed Code Treatment Minutes: 0 No interventions: No interventions completed today Reason for No Interventions Completed Today: eval, education, repositioning Patient/Family Education: Education Topics Activity/Work/Community: Activity modification, Importance of out of bed activity Medical Information/Signs and Symptoms: Activities of daily living compensatory strategies, Recovery process Recommendations: Repositioning Therapy Specific: Role of rehabilitation, Treatment plan/goals, Role of occupational therapy Team Communication Communicated with: Nurse (student) When: During therapy session By: [id number] communication About: request for minimum pressure pad style call farris, positioning pt's left foot/ankle ASSESSMENT: Pt very pleasant, challenged with aphasia to communicate clearly, but participated as able. Pt hypotensive this date and c/o pain during session, mobility deferred. Pt has significant UE weakness anddifficulty participating in any self care tasks. Continued skilled intervention needed to progress.ABDIAZIZ recommended for discharge. Medical Necessity: occupational therapy is medically necessary to provide compensatory and remediation training to maximize the patient's independence and participation in activities of daily living and instrumental activities of daily living. The patient: requires sub-acute rehabilitation as next level of care for multiple therapy disciplines at a lower intensity with the expectation to return to prior level of function/living situation. Short Term Goals: Time Frame: 02/24/24 Goal: Pt to be able to feed self with mod assist using AE as appropriate Status: Initiated Goal: Pt to complete upper body bathing with set up and mod assist using AE as appropriate Status: Initiated Goal: Pt to have increased UE strength to be able to complete oral care tasks with mod A using AE as appropriate Status: Initiated Group Home Goals: Goals: Not Applicable PLAN: Frequency: Times per week Times Per Week: 3 Intensity: 15-45 minutes Duration: Duration of hospitalization Interventions May Include: Cognitive function intervention, Therapeutic activities, Self-care/home management, Therapeutic exercise, Neuromuscular re- education, Manual therapy Patient/Family Education: Discharge planning, Family/caregiver education, Equipment, Safety, Home exercise program, Risk reduction education Further Data: Continued evaluation Recommended Discharge Destination: Subacute rehabilitation Recommended Discharge Services Therapy Specific Services: Occupational therapy, Physical therapy, Speech language pathology Equipment Recommended: To be determined Next Session to Include: ADL training Olivia Vegas OT, 02/17/2024, 15:40 * Caren Gorman - 02/17/2024 1449 EDT Case Management Progress Note: Level of Care: Acute Discharge Plan/Estimated Date of Discharge: rehab/ unknown Insurance/Payor Source: Medicare Barriers to Discharge: not medically stable, per her provider Support Network: sister Transportation: wheelchair/ ambulance/ family Continued Planning: Patient was offered and accepted a bed at [facility] when she is medically ready. However, per provider patient is not ready at this time. did provide information to patients sister. SNF packet has not been started. * Tegan Bragg PT - 02/17/2024 1318 EDT [facility] Physical Therapy Encounter Note Date of Service: 02/17/2024 Diagnosis: Acute L ankle pain after fall Date of Onset: 02/04/24 Referring Provider: Roe Griggs Reason for Referral: Evaluate and treat Precautions: WBAT in walking boot L LE Mobility Precautions Activity: Fall risk/precautions, Activity as tolerated Weight bearing levels LLE: Weight bearing as tolerated SUBJECTIVE: Subjective Statements Patient is currently having difficulty with: mobility, activity tolerance, transfers/gait Patient/caregiver states: I don't think I can get out of bed today. I feel dizzy. Patient/Caregiver Goals Patient and Caregiver Goals: Feel better Pain Evaluation Pain Description: Intermittent left ankle pain, unable to rate. OBJECTIVE: Interventions Completed Today: Physical Therapy Today At: Time: 9439-1129 Total Treatment Time (minutes): 23 Timed Code Treatment Minutes: 23 Therapy Session: A occupational therapy specialist was present for the physical therapy session Interventions Included Therapeutic Activities Minutes: 23 Therapeutic Activities 1: Patient agreeable to treatment. Completed AAROM bilateral UE and LE in bed, with encouragement, able to actively move all extremities. Required moderate assistance to roll, maximal assistance 1-2 supine to sitting. Able to maintain sitting with moderate assistance. Intermittently required less assist, but not able to maintain. Reported dizziness with sitting. See below for vital signs. Returned to supine with maximal assistance x 2. Maximal assistance required for positioning. Therapeutic Activities 2: Vital signs: supine 120/83 102 bpm 98% sittin/79 105 bpm patient reported signficant dizziness, able to tolerate sitting for 5-7 minutes, then transferred supine, unable to get another BP in sitting. Once supine and position 98 bpm 113/74 Patient Status at the End of the Therapy Session The patient was left in the: bed with the: Call farris in reach Patient Status at the End of the Therapy Session Comments: RN notified of patient status, patient'sbrother in to visit. Patient/Family Education: Education Topics Activity/Work/Community: Activity modification, Importance of out of bed activity Medical Information/Signs and Symptoms: Vital sign response Mobility, Transfers, and Gait: Mobility recommendations, Functional transfers, Mobility training, Bed mobility Recommendations: Discharge recommendations/planning, Follow-up services Safety: Fall prevention, Mobility/joint precautions, Weight bearing status Therapy Specific: Role of physical therapy, Treatment plan/goals Team Communication Communicated with: Nurse When: Prior to therapy session, After therapy session By: [id number] communication, Other About: Weakness, functional limitations. ASSESSMENT: The patient presents with a physical therapy diagnosis of: Impaired movement system, Impaired mobility, Lower extremity dysfunction Ynes continues to demonstrate significant weakness which impairs mobility. Today's session was limited due to orthostatic hypotension. Ynes continues to function far below her baseline. Continue to recommend ABDIAZIZ. The patient's prior level of function was: modified independent Current status is: below prior level of function The patient's rehabilitation potential is: good Physical Therapy is medically necessary to: address these body structure/function impairments, activity limitations, and participation restrictions, establish and progress mobility/exercise and provide recommendations for staff and safe discharge planning, facilitate return to prior level of function, improve safety and independence The patient: requires sub-acute rehabilitation as next level of care for multiple therapy disciplines at a lower intensity with the expectation to return to prior level of function/living situation. PLAN: Frequency: Times per week Times Per Week: 5 Intensity: 15-45 minutes Duration: Duration of hospitalization Interventions May Include: Therapeutic activities, Neuromuscular re-education, Gait training, Therapeutic exercise, Wheelchair management and training Patient/Family Education: Discharge planning, Patient education, Role of physical therapy/occupational therapy/rehabilitation, Equipment, Recommendations, Safety, Falls Prevention, Instruction in precautions Recommended Discharge Destination: Subacute rehabilitation Recommended Discharge Services Therapy Specific Services: Occupational therapy, Physical therapy, Speech language pathology Equipment Recommended: To be determined Next Session to Include: Progress functional transfer training as tolerated. Tegan Bragg PT 02/17/2024 13:29 * Markie Arias - 02/17/2024 1053 EDT [facility] Speech-Language Pathology Clinical Swallow Evaluation BILLET GRINDER Diagnosis: Dysphagia, oropharyngeal phase: Medical Diagnosis: Sprain of left ankle, unspecified ligament, initial encounter Date of Onset: 02/16/24 Date of Referral: 02/16/24 Referring Provider: Noreen Montez RESORT MANAGER Start Time: 1010 Total Therapy minutes: 30 minutes SUBJECTIVE: RN reported that pt took pills 1 at a time in puree, only needing an additional spoonful of puree 1x. Pt reported that she has been swallowing fine. OBJECTIVE: History: Per H&P by Kassandra Ansari MD on 02/04/24: Ynes White is a 54 y.o. female with focal epilepsy, chronic low back pain, tremor, history of cerebral venous sinus thrombosis complicated by hemorrhagic stroke with residual neurogenic bladder and left-sided sensory changes, and memorydisorder with legal guardianship (sister) who presents to the [facility] emergency department after mechanical fall at home this morning. Reportedly has had frequent recurrent falls lately. The fall this morning was unwitnessed but it sounds like she was bending over to reach her foot and lost her balance. Denies associated presyncope, chest pain, shortness of breath. Per note from Preethi Alfaro RN on 02/15/24: Assumed care at 0700. Alert and oriented to person and place. Lung sounds CTA, maintaining O2 saturation at or above 92% on room air. No complaints of cough, shortness of breath, or chest pain. Medications given per MD order, see eMAR. Difficulty swallowing pills; tried pudding, sherbet, and apple sauce with no success. Patient refused large PM meds asunable to swallow them. Complained of 10/10 pain in left ankle; scheduled pain medication given with good effect. Complained of nausea, difficulty chewing and swallowing solids (mac and cheese, grilled cheese). MD aware, diet changed to puree with thin liquids. Incontinence checks and turned q 2 hours. Reyes care done q shift. VSS, NAD. Hourly rounding done. Call farris within reach. PMH: Past Medical History: Diagnosis Date Cerebral venous sinus thrombosis 02/14/2020 Exercise involving walking flat surfaces History of cranial surgery 07/12/2020 History of general anesthesia Left-sided nontraumatic intracerebral hemorrhage (HCC-CMS) 03/02/2020 Status post decompressive hemicraniectomy Memory disorder Shoulder joint pain right UTI (urinary tract infection) Current Diet: Dysphagia Diet Level: 2 (puree) Diet prior to admission: Regular diet with thin liquids. Current Medications: Current Facility-Administered Medications Medication Dose Route Frequency Provider Last Rate Last Admin acetaminophen (TYLENOL) tablet 650 mg 650 mg oral TID Noreen Montez, RESORT MANAGER 650 mg at 02/17/24 0940 alteplase (CATHFLO ACTIVASE) injection 2 mg 2 mg intercatheter PRN Greg Chavez MD aluminum & magnesium hydroxide-simethicone (MAALOX PLUS) 200-200-20 mg/5 mL suspension 30 mL 30mL oral Q6H PRN Joyce Argueta MD bisacodyL (DULCOLAX) suppository 10 mg 10 mg rectal DAILY Grupp, Noreen A, RESORT MANAGER buPROPion (WELLBUTRIN SR) SR tablet 100 mg 100 mg oral BID Kassandra Ansari MD 100 mg at 02/17/24 0941 calcium carbonate (TUMS) tablet 500 mg (200 mg elemental calcium) 2 Tablet 2 Tablet oral Q6H PRN Kassandra Ansari MD carbamide peroxide (DEBROX) 6.5 % otic solution 5 Drop 5 Drop both ears QID PRN Joyce Argueta MD 5 Drop at 02/08/24 1802 cefTRIAXone (ROCEPHIN) 1,000 mg in sodium chloride (NS MBP) 50 mL IVPB 1,000 mg intravenous DAILY Grupp, Noreen A, RESORT MANAGER 1,000 mg at 02/17/24 0939 cyanocobalamin (VITAMIN B-12) tablet 1,000 mcg 1,000 mcg oral DAILY Grupp, Noreen A, RESORT MANAGER 1,000 mcg at 02/17/24 0941 [START ON 02/23/2024] cyanocobalamin (VITAMIN B12) injection 1,000 mcg 1,000 mcg intramuscular WEEKLY Grupp, Noreen A, RESORT MANAGER enoxaparin (LOVENOX) injection 80 mg 1 mg/kg subcutaneous Q12H Grupp, Noreen A, RESORT MANAGER 80 mg at 02/17/24 0959 folic acid (FOLVITE) tablet 1 mg 1 mg oral DAILY Grupp, Noreen A, RESORT MANAGER 1 mg at 02/17/24 0941 lactulose retention enema (200 gm/300 mL lactulose + 700 mL tap water) 200 g 200 g rectal BID PRN Grupp, Noreen A, RESORT MANAGER lidocaine (GLYDO/URO-JET) 2 % jelly in applicator topical PRN Greg Chavez MD lidocaine (PF) 10 mg/mL (1 %) injection 2 mg 2 mg intradermal PRN Kassandra Ansari MD lidocaine (PF) 10 mg/mL (1 %) injection 5 mg 5 mg intradermal PRN Greg Chavez MD magnesium oxide (MAG-OX) tablet 400 mg 400 mg oral BID Grupp, Noreen A, RESORT MANAGER 400 mg at 02/17/24 0941 melatonin tablet 9 mg 9 mg oral QHS Kassandra Ansari MD 9 mg at 02/16/242023 methocarbamoL (ROBAXIN) tablet 500 mg 500 mg oral QID Apolinar Diallo MD 500 mg at 02/17/2441 metoclopramide HCl (REGLAN) tablet 5 mg 5 mg oral TID AC Kassandra Ansari MD 5 mg at 02/16/24 100 OLANZapine (ZYPREXA) tablet 20 mg 20 mg oral QHS Kassandra Ansari MD 20 mg at 02/16/242023 ondansetron (ZOFRAN-ODT) disintegrating tablet 4 mg 4 mg oral Q4H PRN Apolinar Diallo MD 4 mg at 02/11/242109 Or ondansetron (PF) (ZOFRAN) injection 4 mg 4 mg intravenous Q4H PRN Apolinar Diallo MD 4 mg at 02/12/24 0930 pantoprazole (PROTONIX) injection 40 mg 40 mg intravenous DAILY Joyce Argueta MD 40 mg at 02/17/24 0939 polyethylene glycol 3350 (MIRALAX) packet 17 g 17 g oral DAILY Rosalind Atkins MD 17 g at 02/14/24 0845 Prazosin (MINIPRESS) capsule 1 mg 1 mg oral QHS Kassandra Ansari MD 1 mg at 02/16/242022 pregabalin (LYRICA) capsule 100 mg 100 mg oral BID Kassandra Ansari MD 100 mg at 02/17/24 09 propRANolol (INDERAL LA) SR capsule 60 mg 60 mg oral DAILY Grupp, Noreen A, RESORT MANAGER 60 mg at 02/17/24 0940 propRANolol (INDERAL) tablet 10 mg 10 mg oral TID PRN Kassandra Ansari MD 10 mg at 02/14/24 1433 ramelteon (ROZEREM) tablet 8 mg 8 mg oral AT BEDTIME Kassandra Barriga MD 8 mg at 02/04/242009 senna (SENOKOT) tablet 2 Tablet 2 Tablet oral [facility] Rosalind Atkins MD 2 Tablet at 02/16/242023 Current Status: Cognitive Status: Patient was alert and cooperative during evaluation. Patient was confused during evaluation. Pt has baseline aphasia. Respiratory Status: Respiratory status was judged to be WFL to support oral feeding. Clinical Swallow Evaluation: Patient/Family: consented to completing the clinical bedside swallow exam. Oral Peripheral Motor Exam: Face: Face was symmetrical with adequate strength and range of motion. Lips: Reduced strength and range of motion. Tongue: Strength reduced Unable to protrude tongue fully. Velum: Symmetrical soft palate elevation during phonation attempts. Dentition: Missing teeth on top and Poor dental/oral hygiene. Laryngeal Excursion: Within functional limits without anterior tipping upon palpation. Speech Intelligibility: Speech is characteristic of dysarthria as demonstrated by slurred speech . Vocal Quality: Patient presents with a clear vocal quality. Cough: Patient presents with a strong, non-productive cough. Positioning: Seen at bedside for evaluation. Consistencies Tested: was assessed with thin liquids, puree foods, and solid foods. Methods of Delivery: All items were administered by BILLET GRINDER using a spoon and cup. Oral Phase Findings: Patient presents with oral phase deficits characterized by prolonged mastication oral residue remains in the anterior sulci and reduced bolus formation. Pharyngeal Phase: Patient presents with pharyngeal phase deficits as suggested by delayed swallow response and effortful swallows. Patient/Family Education: Topic: Patient/Family education and training was completed today including the role of Speech-Language Pathology, results of today's exam/recommendations, and questions were addressed. Learner: patient Method of Education: Verbal Barriers to Learning/Education: patient's inability to learn/carry over information at this time Patient: was able to verbalize understanding of information Family: not present Assessment /Clinical Impressions: is a 54 y.o. female admitted with a sprain of left ankle . A clinical swallow evaluation was completed today by Speech Language Pathology secondary to concerns for oropharyngeal dysphagia, and risk of laryngeal penetration/aspiration. currently presents with a moderate oropha ryngeal phase dysphagia characterized by prolonged mastication, oral residue, reduced bolus formation, delayed swallow trigger, and effortful swallows. No s/s of airway compromise were seen this date. Etiology of dysphagia is likely due to past left intracerebral hemorrhage, hemorrhagic stroke and deconditioning/ weakness. remains at risk of aspiration/airway compromise including obstruction, congestion and infective sequelae of aspiration. Actual risk of acquiring aspiration pneumonia if endotracheal aspiration occurs is considered Moderate based on the presence of the following factors which research indicates predisposes an individual to aspiration pneumonia: large number of decayed teeth, poor oral care, need to take a large number of medications, reduced level of physicalactivity, and neurological disease. Compensatory strategies of small bites and slow pace appear effective in decreasing risk of aspiration. Prognosis for improvement in swallow function is judged to be good at this time as she regains health/ strength. Anticipate patient will benefit from diet modification as health improves. Follow up BILLET GRINDER for diet consistency modifications, education on compensatory strategies, and safety of diet as ordered. GOALS: -Patient will demonstrate optimum safety and efficiency of swallowing function for highest diet/liquid consistencies as indicated by skilled intervention or radiographically. (by date:02/24/24) -Tolerate Thin liquids without evidence of coughing, choking, throat clearing, wet voice, etc...in : 90%( 18/ 20) of observed swallows using compensatory swallow strategies with min cues. (by date: 02/24/24) -Tolerate Dysphagia 6 consistency diet without overt s/s of dysphagia in 90 % ( 18 / 20) of observed swallows using strategies with min cues. (by date 02/24/24) Plan /Recommendations: Patient will continue to benefit for further BILLET GRINDER intervention in this setting to address dysphagia management and intervention needs. Referrals: n/a BILLET GRINDER follow-up: 3x a week until discharged Discharge Plan: Per care team recommendations . Markie Arias 02/17/2024 10:53 Cosigned by Denita Cui MS CCC-BILLET GRINDER at 02/17/2024 12:08 EDT Associated attestation - Denita Cui MS CCC-BILLET GRINDER - 02/17/2024 1208 EDT DENITA CUI, MS CCC-BILLET GRINDER was present throughout the entire session and directed the care of the patient by the therapy student. DENITA CUI, MS CCC-BILLET GRINDER 02/17/2024 12:08 * Marifer Lyman, RD - 02/16/2024 1627 EDT Nutrition Follow-Up S: Patient alert and resting comfortably this afternoon. Sister, Lucille, at bedside. Reviewed options for meal choices and patient declining most items. Appetite is still low. Lucille suggesting butterscotch pudding, but Ynes saying No. You can have it. Only requesting yogurt and soup. Patient trying to spell out another food item (possibly peanut butter?). Very pleasant and thanking this telegraphic typewriter operator for coming by. O: Diet Rx: Dysphagia Level 4 (Puree) with mildly thickened liquids. Meds: Current Outpatient Medications Medication Instructions acetaminophen (TYLENOL) 1,000 mg, oral, EVERY 6 HOURS apixaban (ELIQUIS) 2.5 mg, oral, 2 TIMES DAILY aspirin 81 mg, oral, DAILY bisacodyL (DULCOLAX) 10 mg, oral, DAILY buPROPion (WELLBUTRIN SR) 200 mg, oral, DAILY ibuprofen (MOTRIN) 400 mg, oral, 3 TIMES DAILY PRN melatonin 10 mg, oral, AT BEDTIME methocarbamoL (ROBAXIN) 500 mg, oral, 2 TIMES DAILY metoclopramide HCl (REGLAN) 5 mg, oral, 3 TIMES DAILY BEFORE MEALS OLANZapine (ZYPREXA) 20 mg, oral, AT BEDTIME omeprazole (PRILOSEC) 20 mg capsule TAKE 1 CAPSULE BY MOUTH EVERY DAY 30 MINUTES BEFORE BREAKFAST Prazosin (MINIPRESS) 1 mg capsule Take 1 Capsule by mouth at bedtime. pregabalin (LYRICA) 100 mg, oral, 2 TIMES DAILY propRANolol (INDERAL) 10 mg tablet TAKE 1 TABLET BY MOUTH EVERY MORNING, 1 TABLET EVERY AFTERNOON AND 2 TABLETS EVERY NIGHT AT BEDTIME NEEDED FOR ANXIETY. Lab Results Component Value Date/Time WBC 4.53 02/14/2024 10:00 HGB 12.3 02/14/2024 10:00 HCT 35.2 02/14/2024 10:00 MCV 99 (H) 02/14/2024 10:00 NA 132 (L) 02/16/2024 07:55 K 4.4 02/16/2024 07:55 CO2 26 02/16/2024 07:55 CL 102 02/16/2024 07:55 BUN 13 02/16/2024 07:55 CREATININE 0.53 02/16/2024 07:55 SERGLU 108 (H) 02/16/2024 07:55 CALCIUM 8.7 02/16/2024 07:55 PHOS 3.1 02/12/2024 06:22 MG 1.8 02/16/2024 07:55 Wt Readings from Last 5 Encounters: 02/04/24 83.8 kg (184 lb 12.8 oz) 09/11/23 94.3 kg (207 lb 14.4 oz) 05/23/23 96.2 kg (212 lb) 08/01/22 63.9 kg (140 lb 14 oz) 03/28/22 60.5 kg (133 lb 4.8 oz) Weights Filed This Admission 02/04/24 1713 Weight: 83.8 kg (184 lb 12.8 oz) PO: Very minimal due to nausea/swallowing difficulty. Skin: No noted skin breakdown GI: Last BM 02/13 A: Patient continues to have difficulty with price analyst strength. Nursing has been assisting with feeding. Diet changed to dysphagia puree with thickened liquids yesterday due to noted difficulty swallowing solids per RN. BILLET GRINDER consult also placed. Will monitor for diet texture changes. OT evaluation also pending. Patient now day 13 of admission with continued poor PO intake. Multiple factors contributing to poor intake, including ileus, intestinal pseudoobstruction . No indication for surgical intervention atthis time per surgical consult. Noted with hyponatremia, but level stable. Will continue to trend. No new weights since admission. Will order weekly weights. Plan: -Continue Dysphagia diet pending BILLET GRINDER evaluation -Daily visits for menu assist -Obtain new weight and monitor weekly. -Monitor PO intakes/tolerance, skin, labs, bowels, weight -RD following Marifer Lyman MS, RD, CD, CNSC * Noreen Montez FNP - 02/16/2024 1151 EDT Medicine Progress Note Service Date: 02/16/2024 Admit Date: 02/04/2024 11:38 Hospital Day: 11 PCP: Romario Hairston Ynes White is a 54 y.o. female with a chief complaint of Fall (Pt arrives via EMS who reports6 falls in last week and hx stroke two years ago. Pt states, my brain wouldn't let me shower todayand I fell down reports two falls today. LLE pain) now admitted with a diagnosis of Sprain of leftankle, unspecified ligament, initial encounter. 24 Hour Events: Progressive weakness lower extremities worse than upper Urinary retention with reyes cath Advancing diet Subjective/Objective Subjective Nursing reports ongoing struggles with global weakness and anxiety. Pt requires assistance with feeding. Has not gotten OOB or ambulated. She requires her medications be placed in pudding now. She sara a dysphagia diet. Reyes Continues. Pt reports that she feels weak and is anxious as she has trouble with her arms now more. She has dysethesias and hyperkinesia at times in her extremities. She has been advancing her diet without nausea or vomiting. She is passing gas, but no Bms today. She has not been taking her bowel meds consistently. She denies abdominal pain. Denies fevers or chills. Review of Systems: As documented in subjective and HPI. Objective Vital Signs Temp: [36.5 ??C (97.7 ??F)-36.9 ??C (98.5 ??F)] ; Heart Rate: --, Pulse: [80] ; BP: (137-153)/(89-96) ; Resp: [16-18] ; SpO2: [95 %-97 %] Physical Exam Gen: Sitting slouched in bed, simple answers to questions, nontoxic appearance although fatigued, no acute distress. Anxious HEENT: EOMI, MMM, no scleral icterus Neck: Supple, notender CV: RRR, no m/r/g Pulm: CTAB, good air movement, no w/r/r, no oxygen needs on room air Abd: Soft, mild-moderate distention, minimal tenderness to palpation throughout all quadrants no guarding or rebound no peritoneal signs, no HSM Extrem: Warm and well perfused, no cyanosis or edema. : Reyes present sedimentous yellow urine Skin: No acute appearing rash. Warm and dry. Sacrum without breakdown Psych: anxiousl mood and affect, alert and oriented x 2 Neuro: dysmetria, Some intermittent aphasia, CN 2-12 intact, muscle tone normal , areflexic all reflexes with negative babinski, decreased sensory perception to light touch bilateral lower extremities and upper extremities but exam fluctuant and inconsistent. Unable to hold trunchal positioning comfortably, inconsistent motor exam different times of day 3-4/5 upper extremities with occasional wors ening in left hand, 2-3/5 right lower extremity, at least 3-4/left lower. Dysesthesias throughout Hand price analyst and distal upper extremities weaker than proximal. Meds: Current Facility-Administered Medications: acetaminophen (TYLENOL) tablet 650 mg, 650 mg, TID alteplase (CATHFLO ACTIVASE) injection 2 mg, 2 mg, PRN aluminum & magnesium hydroxide-simethicone (MAALOX PLUS) 200-200-20 mg/5 mL suspension 30 mL, 30 mL, Q6H PRN bisacodyL (DULCOLAX) suppository 10 mg, 10 mg, DAILY buPROPion (WELLBUTRIN SR) SR tablet 100 mg, 100 mg, BID calcium carbonate (TUMS) tablet 500 mg (200 mg elemental calcium) 2 Tablet, 2 Tablet, Q6H PRN carbamide peroxide (DEBROX) 6.5 % otic solution 5 Drop, 5 Drop, QID PRN cefTRIAXone (ROCEPHIN) 1,000 mg in sodium chloride (NS MBP) 50 mL IVPB, 1,000 mg, DAILY cyanocobalamin (VITAMIN B12) injection 1,000 mcg, 1,000 mcg, DAILY enoxaparin (LOVENOX) injection 80 mg, 1 mg/kg, Q12H folic acid injection 1 mg, 1 mg, DAILY lactulose retention enema (200 gm/300 mL lactulose + 700 mL tap water) 200 g, 200 g, BID PRN lidocaine (GLYDO/URO-JET) 2 % jelly in applicator, , PRN lidocaine (PF) 10 mg/mL (1 %) injection 2 mg, 2 mg, PRN lidocaine (PF) 10 mg/mL (1 %) injection 5 mg, 5 mg, PRN magnesium oxide (MAG-OX) tablet 400 mg, 400 mg, BID melatonin tablet 9 mg, 9 mg, QHS methocarbamoL (ROBAXIN) tablet 500 mg, 500 mg, QID metoclopramide HCl (REGLAN) tablet 5 mg, 5 mg, TID AC OLANZapine (ZYPREXA) tablet 20 mg, 20 mg, QHS ondansetron (ZOFRAN-ODT) disintegrating tablet 4 mg, 4 mg, Q4H PRN OR ondansetron (PF) (ZOFRAN)injection 4 mg, 4 mg, Q4H PRN pantoprazole (PROTONIX) injection 40 mg, 40 mg, DAILY polyethylene glycol 3350 (MIRALAX) packet 17 g, 17 g, DAILY Prazosin (MINIPRESS) capsule 1 mg, 1 mg, QHS pregabalin (LYRICA) capsule 100 mg, 100 mg, BID propRANolol (INDERAL LA) SR capsule 60 mg, 60 mg, DAILY propRANolol (INDERAL) tablet 10 mg, 10 mg, TID PRN ramelteon (ROZEREM) tablet 8 mg, 8 mg, AT BEDTIME PRN senna (SENOKOT) tablet 2 Tablet, 2 Tablet, QHS Labs: Results for orders placed or performed during the hospital encounter of 02/04/24 (from the past 24 hour(s)) MAGNESIUM Result Value Ref Range Magnesium 1.8 1.7 - 2.8 mg/dL BASIC METABOLIC PANEL (BMP) Result Value Ref Range Sodium 132 (L) 136 - 145 mmol/L Potassium 4.4 3.5 - 5.0 mmol/L Chloride 102 96 - 110 mmol/L CO2 Total 26 22 - 32 mmol/L Anion Gap 4 (L) 5 - 14 mmol/L Glucose 108 (H) 70 - 99 mg/dl Calcium 8.7 8.5 - 10.5 mg/dL BUN 13 10 - 26 mg/dL Creatinine 0.53 0.52 - 1.04 mg/dL eGFR 108 >60 mL/min/1.73m2 VITAMIN B12 Result Value Ref Range Vitamin B12 729 211 - 911 pg/mL FOLATE Result Value Ref Range Folate 5.03 >2.78 ng/mL HOLD LAVENDER TOP Result Value Ref Range Hold Hold Test results still pending from this admission Procedure Component Value Units Date/Time Bacterial Culture, Blood [[id number]] Collected: 02/14/24 1000 Lab Status: In process Specimen: Blood, Venous Updated: 02/14/24 1015 Bacterial Culture, Blood [[id number]] Collected: 02/14/24 1000 Lab Status: In process Specimen: Blood, Venous Updated: 02/14/24 1014 Micro: No results found for this or any previous visit (from the past 24 hour(s)). I reviewed the patient's laboratory studies for today. Recent Imaging: Assessment/Plan Assessment Ynes White is a 54 y.o. 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 Found to have 2 small avulsion fractures left ankle. Will need ABDIAZIZ per PT recommendations. Hospital course complicated by B12 and folate deficiency, hypomagnesemia, ileus, retained desiccated stool, elevated LFTs, enlarged gallbladder, persistent ileus, and progressive weakness. 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 Ongoing overall improvement with advancement in diet in past 24 hrs. Presently without indication for neostigmine or surgery. Her weakness has been progressive over her hospitalization. In addition to her ileus she has developed some urinary retention and UTI which is pansensitive to Ceftriaxone. She is no longer able to walk without significant anxiety and fear of falling. Clearly her chronic stroke, B12 and folate deficiency, and hospitalization not helpful, but wonder about recrudesensce of her neuro insult vs CIDP given that her MRI did not show acute changes. Plan #Marked weakness with concern CIDP vs deconditioning with overlaying fear and anxiety for falls/deconditioning -Neurology consulted Dr Cool, will reach again on 02/16 -MRI Head and neck without contrast no acute changes, chronic persistent large old infarct. -follow clinically for now, if ongoing progressive weakness, please reconsult Neurology for LP and further workop -Apixaban discontinued/placed on hold 02/14 and started Lovenox 1mg/kg BID for coverage while consideration of Lumbar puncture later in week. -PT and OT to ekta -BILLET GRINDER swallow and treament consult, dysphagia diet. -change Vitamin B12 to IM given her GI symptoms. #Urinary retention with UTI: -Reyes catheter placed 02/12/24 consider discontinuation trial on 02/16 am -Ceftriaxone 1 gram daily x 7 days (reyes placed before antx started) -DC'd opiates #tachycardia/HTN -Propranolol ER 60 mg daily -continue PRN propranolol 10 mg for anxiety -post LR bolus x 500 cc 02/13 # Ileus, intestinal pseudoobstruction -CT scan 02/08 with 7 cm cecum -X-ray 02/09 with interval increase in the degree of distention, however on x-ray 02/10 maximal dilated loops measure up to 8 cm which is decreased from 02/09 somewhat. -Clinically improved with less nausea and advancing diet as well as responsive bowel clean out. Continue enema for now, but trial Dulcolax suppository first and if results hold on enema. -Appreciate general surgery consultation, Signed off today 02/14/24 -Dysphagia diet, no indication for neostigmine or surgery at this time. -Opiates have been stopped -Ambulation/movement. PT consult. -Keep electrolytes repleted. # Enlarged gallbladder -Noted on CT. Ultrasound with fatty infiltrate of liver but no further gallbladder pathology. No further interventions for now # Left ankle avulsion fractures x 2 in the setting of recurrent falls -Walking boot/shoe -PT recommending ABDIAZIZ -Weight-bear as tolerated -Fall precautions -Analgesia with Tylenol which was changed to scheduled today, WASH AND GREASER Robaxin, WASH AND GREASER pregabalin, ibuprofen as needed -Avoiding opiate therapy as above # Electrolytes/hypomagnesemia, hypocalcemia -Potassium repleted - magnesium repleted -start oral Magnesium oxide 400 mg BID today for both replacement and bowel function. # Macrocytosis with new B12 deficiency, folate deficiency -Unclear if B12 deficiency related to dietary intake or PPI use. - consider measuring intrinsic factor if she becomes anemic -Started vitamin B12, folate supplements, but will change to IM for better absorption. -Outpatient follow-up for CBC recheck -Continue WASH AND GREASER PPI # Recent hyponatremia -Sodium stable. Following. Monitor volume status. -LR 500 cc bolus today. Chronic conditions: Prior cerebral venous sinus thrombosis and provoked PE: WASH AND GREASER apixaban, WASH AND GREASER ASA Chronic pain- WASH AND GREASER pregabalin as above, WASH AND GREASER methocarbamol as above Mood- WASH AND GREASER Wellbutrin, WASH AND GREASER Zyprexa, WASH AND GREASER prazosin, WASH AND GREASER propranolol prn anxiety or tremor GERD- WASH AND GREASER PPI FEN: DIET DYSPHAGIA VTE Prophylaxis: apixaban Discharge Plan: ABDIAZIZ placement CODE STATUS: Full Code I spent more than 50 minutes caring for this patient today including >50% of time spent in counseling and coordination of care. Time spent in review of the medical chart, review of labs, review ofimaging, examining and evaluating the patient, discussion with consultants, placing orders, and coordination of care with the patient and guardian, Dr Li Hospitalist, Dr Jiménez, Neurology . LETICIA Cullen, 02/16/2024 11:51 * Claus De MD - 02/15/2024 1039 EDT Progress Note Admit Date: 02/04/2024 Service Date: 02/15/2024 CC: Chief Complaint Patient presents with Fall Pt arrives via EMS who reports 6 falls in last week and hx stroke two years ago. Pt states, my brain wouldn't let me shower today and I fell down reports two falls today. LLE pain 24 Hour Events: No adverse events Subjective: Patient feels better wrt her abdominal pain. She is passing gas and stool. She still feels week. She denies any fevers, chills, sob, chest pain, headaches, v/d, joint swelling, rashes, bleeding. Review of Systems: A ten point review of systems was performed and was negative except for pertinent positives noted above. Objective: BP (!) 159/97 (BP Cuff Location: Right arm, BP Patient Position: Semi fowlers) Pulse 79 Temp 36.4 ??C (97.6 ??F) (Oral) Resp 17 Ht 170.2 cm (67) Wt 83.8 kg (184 lb 12.8 oz) SpO2 95% BMI 28.94 kg/m?? Intake/Output Summary (Last 24 hours) at 02/15/2024 1039 Last data filed at 02/14/2024 1400 Gross per 24 hour Intake 250 ml Output 775 ml Net -525 ml Exam: Gen: lying in bed, NAD HEENT: anicteric sclerae, MMM, AT/NC, EOMI Neck: supple, no LAD Lungs: CTAB, unlabored CV: RRR, nl S1 S2, no murmur Abd: soft, NT, mild distention, +BS, no masses : catheter present Ext: warm, wp, no LE edema, no joint swelling Neuro: AAOx2, areflexic, 3/5 UE/LE strength, non-focal Psych: calm, conversant, normal affect Skin: no rashes or lesions identified Telemetry / EKG: none Data Review: Recent Labs 02/13/24 0611 02/14/24 1000 WBC 4.08 4.53 RBC 3.35* 3.56* HGB 11.6 12.3 HCT 33.1* 35.2 MCV 99* 99* MCH 34.6* 34.6* MCHC 35.0 34.9 PLT 125* 150 NEUTROABS 2.47 -- Recent Labs 02/15/24 0639 NA 133* K 4.0 CL 106 CO2 25 BUN 14 CREATININE 0.56 CALCIUM 8.8 MG 1.7 Recent Labs 02/12/24 1838 COLOR Yellow CLARITYU Clear GLUCOSEU Negative BILIRUBINUR Negative KETONES Negative LABSPEC 1.020 PHUR 6.5 PROTEINUA Negative UROBILINOGEN 1.0 NITRITE Negative LEUKESTER 1+* WBCU 10 - 50* RBCU 3 - 10* BACTERIA Moderate* LABCAST <=10 Assessment: Ms White is a pleasant 54 yo female with chronic lo back pain, prior left cerebral venous thrombosis c/b left hemispheric ICH c/b focal onset seizures, hemorrhagic CVA with residual neurogenic bladder and left-sided sensory changes, provoked PE on lo-dose apixaban for secondary prevention, 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 She wasfound to have 2 small avulsion fractures of the left ankle and progressive weakness. Her hospital course notable for hypomagnesemia, ileus, retained desiccated stool, elevated LFTs, enlarged gallbladder, persistent ileus and a pansensitive E coli UTI. 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 Ongoing overall improvement with advancement in diet in past 24 hrs. Presently without indication for neostigmine or surgery. Plan: 1. Marked weakness with concern for AIDP v deconditioning: Patient has been seen by Dr Cool of neurology. She has fear and anxiety for falls. MR head/neck unrevealing. Follow clinically for now, if ongoing progressive weakness. Will revisit with neurology on 02/15. Apixaban discontinued (last dose 02/13) for consideration of LP. PT, OT evals. 2. Urinary retention with UTI: Unclear if etiology due to infection v opiate use. --reyes catheter placed 02/11; consider discontinuation trial on 02/15 --continue ceftriaxone 1g daily x7 days (reyes placed before CTX started) --d/c'd opiates 3. Hypertension: Patient also had tachycardia. Continue propranolol ER 60mg daily. She also has propranolol 10mg prn anxiety available. Patient is s/p LR 500cc bolus. 4. Ileus, intestinal pseudoobstruction: CT scan 02/08 with noted 7 cm cecum. Clinically improved with less nausea. Advanced diet. Aggressive bowel regimen. General surgery consulted - no intervention with neostigmine or surgery at this time. --d/c'd opiates --ambulation, PT eval --maintain stable electrolytes profile --regular diet 5. Enlarged gallbladder: This was noted on CT imaging. Ultrasound with fatty infiltrate of liver but no further gallbladder pathology. Monitor. 6. Left ankle avulsion fractures x2 in the setting of recurrent falls: --continue with walking boot/shoe --PT eval - rec ABDIAZIZ --WBAT --fall precautions --analgesia with tylenol, robaxin, pregabalin, ibuprofen as needed --avoid opiates as above 7. Hypomagnesemia: Repleted. Trend level. 8. Macrocytosis with new B12/folate deficiency: Unclear if B12 deficiency related to dietary intakeor PPI use. --consider measuring intrinsic factor if she becomes anemic --continue vitamin B12, folate supplements --f/u outpt --continue home PPI 9. Hyponatremia: Sodium level stable in the lo 130s. Trend level. 10. Prior cerebral venous sinus thrombosis, provoked PE: Holding home apixaban, asa. 11. Chronic pain: Continue home pregabalin, methocarbamol as above. 12. Mood: Continue home wellbutrin, zyprexa, prazosin, propranolol prn anxiety or tremor. 13. GERD: Continue home PPI. Prophylaxis: apixaban on hold Estimated date of discharge: TBD I spent more than 35 minutes in clinical time solely dedicated to caring for this patient today. Time spent in review of the medical chart, review of labs, review of imaging, examining and evaluatingthe patient, counseling, treatment planning, placing orders, disease counseling, discharge planning, and coordination of care. This excludes time reported with other services. Claus De MD * Noreen Montez FNP - 02/14/2024 1800 EDT Medicine Progress Note Service Date: 02/14/2024 Admit Date: 02/04/2024 11:38 Hospital Day: 9 PCP: Romario Quick Cindy is a 54 y.o. female with a chief complaint of Fall (Pt arrives via EMS who reports6 falls in last week and hx stroke two years ago. Pt states, my brain wouldn't let me shower todayand I fell down reports two falls today. LLE pain) now admitted with a diagnosis of Sprain of leftankle, unspecified ligament, initial encounter. 24 Hour Events: Progressive weakness lower extremities worse than upper Treating for ileus/pseudoobstruction with surgery following, bowel cleanout Urinary retention with reyes cath Advancing diet, no longer NPO Subjective/Objective Subjective Nursing reports concern about pt weakness, barely wiggle her toes. Tingling bilateral LE, mostly numb, tachy, HTN, O2 sats good on room air. Pt reports that she feels weaker and cannot walk, move her legs or hold her trunk upright without fear of falling. Still has some nausea, but taking meds and is advancing her diet. Has had multiple large Bms in the past 24 hrs post enemas. She feels her abdomen is better. Feels her face is also a little tingling. Has ongoing left ankle pain. Review of Systems: As documented in subjective and HPI. Objective Vital Signs Temp: [36.2 ??C (97.2 ??F)-36.7 ??C (98.1 ??F)] ; Heart Rate: [103 BPM] , Pulse: [79] ; BP: (139-167)/(90-105) ; Resp: [16-24] ; SpO2: [92 %-97 %] Physical Exam Gen: Sitting slouched in bed, simple answers to questions, nontoxic appearance although fatigued, no acute distress. Anxious HEENT: EOMI, MMM, no scleral icterus Neck: Supple, notender CV: RRR, no m/r/g Pulm: CTAB, good air movement, no w/r/r, room air sating well Abd: Soft, mild-moderate distention, minimal tenderness to palpation throughout all quadrants no guarding or rebound no peritoneal signs, no HSM GI: +BS Extrem: Warm and well perfused, no cyanosis or edema. : Reyes present sedimentous yellow urine Skin: No acute appearing rash. Warm and dry. Sacrum without breakdown Psych: anxiousl mood and affect, alert and oriented x 2 Neuro: Some intermittent aphasia, CN 2-12 intact, muscle tone normal , areflexic all reflexes with negative babinski, decreased sensory perception to light touch bilateral lower extremities and upperextremities but exam fluctuant and inconsistent. Unable to hold trunchal positioning comfortably, inconsistent motor exam different times of day 3/5 upper extremities with occasional worsening in left hand, 2-3/5 right lower extremity, at least 3-4/left lowe Meds: Current Facility-Administered Medications: acetaminophen (TYLENOL) tablet 975 mg, 975 mg, Q6H PRN alteplase (CATHFLO ACTIVASE) injection 2 mg, 2 mg, PRN aluminum & magnesium hydroxide-simethicone (MAALOX PLUS) 200-200-20 mg/5 mL suspension 30 mL, 30 mL, Q6H PRN buPROPion (WELLBUTRIN SR) SR tablet 100 mg, 100 mg, BID calcium carbonate (TUMS) tablet 500 mg (200 mg elemental calcium) 2 Tablet, 2 Tablet, Q6H PRN carbamide peroxide (DEBROX) 6.5 % otic solution 5 Drop, 5 Drop, QID PRN cefTRIAXone (ROCEPHIN) 1,000 mg in sodium chloride (NS MBP) 50 mL IVPB, 1,000 mg, DAILY cyanocobalamin (VITAMIN B-12) tablet 1,000 mcg, 1,000 mcg, DAILY folic acid (FOLVITE) tablet 1 mg, 1 mg, DAILY lactulose retention enema (200 gm/300 mL lactulose + 700 mL tap water) 200 g, 200 g, DAILY lidocaine (GLYDO/URO-JET) 2 % jelly in applicator, , PRN lidocaine (PF) 10 mg/mL (1 %) injection 2 mg, 2 mg, PRN lidocaine (PF) 10 mg/mL (1 %) injection 5 mg, 5 mg, PRN melatonin tablet 9 mg, 9 mg, QHS methocarbamoL (ROBAXIN) tablet 500 mg, 500 mg, QID metoclopramide HCl (REGLAN) tablet 5 mg, 5 mg, TID AC OLANZapine (ZYPREXA) tablet 20 mg, 20 mg, QHS ondansetron (ZOFRAN-ODT) disintegrating tablet 4 mg, 4 mg, Q4H PRN OR ondansetron (PF) (ZOFRAN)injection 4 mg, 4 mg, Q4H PRN pantoprazole (PROTONIX) injection 40 mg, 40 mg, DAILY polyethylene glycol 3350 (MIRALAX) packet 17 g, 17 g, DAILY Prazosin (MINIPRESS) capsule 1 mg, 1 mg, QHS pregabalin (LYRICA) capsule 100 mg, 100 mg, BID propRANolol (INDERAL) tablet 10 mg, 10 mg, TID PRN ramelteon (ROZEREM) tablet 8 mg, 8 mg, AT BEDTIME PRN senna (SENOKOT) tablet 2 Tablet, 2 Tablet, QHS Labs: Results for orders placed or performed during the hospital encounter of 02/04/24 (from the past 24 hour(s)) MAGNESIUM Result Value Ref Range Magnesium 1.7 1.7 - 2.8 mg/dL BASIC METABOLIC PANEL (BMP) Result Value Ref Range Sodium 133 (L) 136 - 145 mmol/L Potassium 4.1 3.5 - 5.0 mmol/L Chloride 104 96 - 110 mmol/L CO2 Total 27 22 - 32 mmol/L Anion Gap 2 (L) 5 - 14 mmol/L Glucose 107 (H) 70 - 99 mg/dl Calcium 8.6 8.5 - 10.5 mg/dL BUN 10 10 - 26 mg/dL Creatinine 0.58 0.52 - 1.04 mg/dL eGFR 106 >60 mL/min/1.73m2 HOLD LAVENDER TOP Result Value Ref Range Hold Hold TSH Result Value Ref Range TSH 3.54 0.47 - 4.68 mIU/L COMPLETE BLOOD COUNT Result Value Ref Range WBC 4.53 4.00 - 12.40 K/cmm RBC 3.56 (L) 3.86 - 5.04 M/cmm Hemoglobin 12.3 11.6 - 15.2 g/dL HCT 35.2 34.9 - 44.4 % MCV 99 (H) 81 - 98 fL MCH 34.6 (H) 26.7 - 33.3 pg MCHC 34.9 32.1 - 35.9 g/dL RDW-CV 15.8 (H) <14.7 % RDW-SD 57.6 (H) <50.4 fl PLT 150 141 - 377 K/cmm MPV 10.6 9.5 - 12.7 fL Test results still pending from this admission Procedure Component Value Units Date/Time Bacterial Culture, Blood [[id number]] Collected: 02/14/24 1000 Lab Status: In process Specimen: Blood, Venous Updated: 02/14/24 1015 Bacterial Culture, Blood [[id number]] Collected: 02/14/24 1000 Lab Status: In process Specimen: Blood, Venous Updated: 02/14/24 1014 CK [[id number]] Collected: 02/14/24 0651 Lab Status: In process Specimen: Blood, Venous Updated: 02/14/24 1012 Micro: No results found for this or any previous visit (from the past 24 hour(s)). I reviewed the patient's laboratory studies for today. Recent Imaging: Assessment/Plan Assessment Ynes White is a 54 y.o. 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 Found to have 2 small avulsion fractures left ankle. Will need ABDIAZIZ per PT recommendations. Hospital course complicated by hypomagnesemia, ileus, retained desiccated stool, elevated LFTs, enlarged gallbladder, persistent ileus, and progressive weakness. 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 Ongoing overall improvement with advancement in diet in past 24 hrs. Presently without indication for neostigmine or surgery. Her weakness has been progressive over her hospitalization with greater concern by staff today. In addition to her ileus she has developed some urinary retention and UTI which is pansensitive to Ceftriaxone. She is no longer able to walk without significant anxiety and fear of falling. Plan #Marked weakness with concern AIDP vs deconditioning with overlaying fear and anxiety for falls/deconditioning -Neurology consult Dr Cool -MRI Head and neck without contrast, consider MRI with contrast of lumbar spine -follow clinically for now, if ongoing progressive weakness, please reconsult Neurology for LP and further workop -Apixaban discontinued/placed on hold today for consideration of LP later in weekend. -PT and OT to ekta #Urinary retention with UTI: -Reyes catheter placed 02/12/24 consider discontinuation trial on 02/14 or 02/15 -Ceftriaxone 1 gram daily x 7 days (reyes placed before antx started) -DC'd opiates #tachycardia/HTN -start Propranolol ER 60 mg daily -continue PRN propranolol 10 mg for anxiety -LR bolus x 500 cc today # Ileus, intestinal pseudoobstruction -CT scan 02/08 with 7 cm cecum -X-ray 02/09 with interval increase in the degree of distention, however on x-ray 02/10 maximal dilated loops measure up to 8 cm which is decreased from 02/09 somewhat. -Clinically improved with less nausea and advancing diet as well as responsive bowel clean out. Continue enema for now. -Appreciate general surgery consultation, Signed off today 02/14/24 -Advancing diet, no indication for neostigmine or surgery at this time. -Opiates have been stopped -Ambulation/movement. PT consult. -Keep electrolytes repleted. -If she was to remain n.p.o., would need to start considering parenteral nutrition. # Enlarged gallbladder -Noted on CT. Ultrasound with fatty infiltrate of liver but no further gallbladder pathology. No further interventions for now # Left ankle avulsion fractures x 2 in the setting of recurrent falls -Walking boot/shoe -PT recommending ABDIAZIZ -Weight-bear as tolerated -Fall precautions -Analgesia with Tylenol which was changed to scheduled today, WASH AND GREASER Robaxin, WASH AND GREASER pregabalin, ibuprofen as needed -Avoiding opiate therapy as above # Electrolytes/hypomagnesemia, hypocalcemia -Potassium repleted - magnesium repleted # Macrocytosis with new B12 deficiency, folate deficiency -Unclear if B12 deficiency related to dietary intake or PPI use. - consider measuring intrinsic factor if she becomes anemic -Started vitamin B12, folate supplements -Outpatient follow-up for CBC recheck -Continue WASH AND GREASER PPI # Recent hyponatremia -Sodium stable. Following. Monitor volume status. -LR 500 cc bolus today. Chronic conditions: Prior cerebral venous sinus thrombosis and provoked PE: WASH AND GREASER apixaban, WASH AND GREASER ASA Chronic pain- WASH AND GREASER pregabalin as above, WASH AND GREASER methocarbamol as above Mood- WASH AND GREASER Wellbutrin, WASH AND GREASER Zyprexa, WASH AND GREASER prazosin, WASH AND GREASER propranolol prn anxiety or tremor GERD- WASH AND GREASER PPI FEN: DIET REGULAR VTE Prophylaxis: apixaban Discharge Plan: ABDIAZIZ placement CODE STATUS: Full Code I spent more than 50 minutes caring for this patient today including >50% of time spent in counseling and coordination of care. Time spent in review of the medical chart, review of labs, review ofimaging, examining and evaluating the patient, discussion with consultants, placing orders, and coordination of care with the patient and guardian, Dr Li Hospitalist, Dr Jiménez, Neurology . LETICIA Cullen, 02/14/2024 18:02 * Andrew Li LPN - 02/14/2024 1771 EDT Data: Pt is a 54 yo female admitted to Med/Surg for Sprain of left ankle; Hospital Day 10. Pt is A&Ox 2. Pt is bed bound currently because of lack of mobility in her legs. Pt had MRI done today of brain and cervical spine. Sister Beverly (legal guardian) gave consent for MRI. Pt stated are my legs still there to nurse. Pt is incontinent of bowel and bladder. Care plan for today: pain/comfort. Action: Assessment performed by nurse. Refer to flowsheet. Nurse was able to get positive response out of sensations in pt's feet. Medications administered per eMAR, whole pills in applesauce. Ceftriaxone administered for positive urine culture. PRN propanolol was administered as an anxiolytic for MRI. Hourly rounding per policy. Response: Pt participated in the prescribed plan of care. Pt resting comfortably in bed at this time and has no noted signs of distress. ANDREW LI LPN 02/14/2024 17:59 * Mary Villar, RN - 02/14/2024 1649 EDT Case Management Progress Note: Level of Care: acute Discharge Plan/Estimated Date of Discharge: DONATO 2 days Insurance/Payor Source: Medicare a/b Barriers to Discharge: Medical clearance Support Network: family Transportation: wcv/ family/ ambulance Continued Planning: Patient was offered and accepted a bed at [facility] when medically ready. CM to follow. * Caren Gorman - 02/14/2024 1443 EDT CM updated patients sister regarding a discharge plan. She does have a bed offer from [facility] but was not medically ready. * Tegan Bragg, PT - 02/14/2024 1218 EDT [facility] [place] Physical Therapy Encounter Note Date of Service: 02/14/2024 Diagnosis: Acute L ankle pain after fall Date of Onset: 02/04/24 Referring Provider: Roe Griggs Precautions: WBAT in walking boot L LE Mobility Precautions Activity: Fall risk/precautions, Activity as tolerated Weight bearing levels LLE: Weight bearing as tolerated SUBJECTIVE: Subjective Statements Patient is currently having difficulty with: mobility, activity tolerance, transfers/gait Patient/caregiver states: I am so tired. Patient/Caregiver Goals Patient and Caregiver Goals: Move around on my own Pain Evaluation Pain Description: Unable to rate 0-10, reported pain in left ankle. OBJECTIVE: Interventions Completed Today: Physical Therapy Today At: Time: 1105 Total Treatment Time (minutes): 23 Timed Code Treatment Minutes: 23 Therapy Session: A occupational therapy specialist was present for the physical therapy session Present for the Therapy Session Comments: initially nursing, neurology, and SOCIAL SCIENCES RESEARCH SCIENTIST Interventions Included Procedures: Therapeutic activities Therapeutic Activities Minutes: 23 Therapeutic Activities 1: Arrived in room with team attempting to sit patient up on the edge of thebed with assistance of several people. Once seated, required minimal assistance x 2 to maintain. Patient unable to tolerated sitting for very long due to reports of fatigue. Dependent to return to supine and to reposition in bed. Patient unable to actively flex hips in supine. Able to actively move bilateral ankles in supine. Pain noted left ankle pain with movement. Patient Status at the End of the Therapy Session The patient was left in the: bed with the: Call farris in reach Patient Status at the End of the Therapy Session Comments: RN notified of patient status. Patient/Family Education: Education Topics Activity/Work/Community: Activity modification, Importance of out of bed activity Mobility, Transfers, and Gait: Mobility recommendations, Functional transfers Recommendations: Discharge recommendations/planning, Follow-up services Safety: Fall prevention, Mobility/joint precautions, Weight bearing status Therapy Specific: Role of physical therapy, Treatment plan/goals Team Communication Communicated with: Team When: During therapy session, After therapy session By: [id number] communication About: Weakness, functional limitations. ASSESSMENT: The patient presents with a physical therapy diagnosis of: Impaired movement system, Impaired mobility, Lower extremity dysfunction Ynes continues to demonstrate significant weakness bilateral UE and LE, although it appears thishas been progressing over the past several weeks. She demonstrated limited participation today due to significant fatigue. She continues to require significant assistance for all mobility, therefore continue to recommend ABDIAZIZ to maximize function. Current status is: below prior level of function The patient's rehabilitation potential is: good Physical Therapy is medically necessary to: address these body structure/function impairments, activity limitations, and participation restrictions, establish and progress mobility/exercise and provide recommendations for staff and safe discharge planning, facilitate return to prior level of function, improve safety and independence The patient: requires sub-acute rehabilitation as next level of care for multiple therapy disciplines at a lower intensity with the expectation to return to prior level of function/living situation. PLAN: Frequency: Times per week Times Per Week: 5 Intensity: 15-45 minutes Duration: Duration of hospitalization Interventions May Include: Therapeutic activities, Neuromuscular re-education, Gait training, Therapeutic exercise, Wheelchair management and training Patient/Family Education: Discharge planning, Patient education, Role of physical therapy/occupational therapy/rehabilitation, Equipment, Recommendations, Safety, Falls Prevention, Instruction in precautions Recommended Discharge Destination: Subacute rehabilitation Recommended Discharge Services Therapy Specific Services: Occupational therapy, Physical therapy Equipment Recommended: To be determined Next Session to Include: Progress functional transfer training as tolerated. Tegan Bragg, PT 02/14/2024 12:26 * Elizabeth Ponce MD - 02/14/2024 1151 EDT General Surgery Progress Note Service Date: 02/14/2024 Chief Complaint: Left ankle pain, nausea, abdominal pain 24 Hour Events: Per report, several large BMs. Started back on diet Subjective/Objective Subjective Patient notes several bowel movements over the last 48 hours. Feels that her abdomen is at her baseline. No nausea. Taking some diet. Objective Vital Signs BP 139/90 (BP Patient Position: Semi fowlers) Pulse 79 Temp 36.2 ??C (97.2 ??F) Resp 16 Ht 170.2 cm (67) Wt 83.8 kg (184 lb 12.8 oz) SpO2 92% BMI 28.94 kg/m?? Physical Exam Physical Examination: General appearance -awake, alert, lying in bed Mental status - alert, oriented to person, place, and time Abdomen -soft, minimally distended. Nontender to exam Musculoskeletal -complains of left ankle pain Labs Results for orders placed or performed during the hospital encounter of 02/04/24 (from the past 24 hour(s)) MAGNESIUM Result Value Ref Range Magnesium 1.7 1.7 - 2.8 mg/dL BASIC METABOLIC PANEL (BMP) Result Value Ref Range Sodium 133 (L) 136 - 145 mmol/L Potassium 4.1 3.5 - 5.0 mmol/L Chloride 104 96 - 110 mmol/L CO2 Total 27 22 - 32 mmol/L Anion Gap 2 (L) 5 - 14 mmol/L Glucose 107 (H) 70 - 99 mg/dl Calcium 8.6 8.5 - 10.5 mg/dL BUN 10 10 - 26 mg/dL Creatinine 0.58 0.52 - 1.04 mg/dL eGFR 106 >60 mL/min/1.73m2 HOLD LAVENDER TOP Result Value Ref Range Hold Hold COMPLETE BLOOD COUNT Result Value Ref Range WBC 4.53 4.00 - 12.40 K/cmm RBC 3.56 (L) 3.86 - 5.04 M/cmm Hemoglobin 12.3 11.6 - 15.2 g/dL HCT 35.2 34.9 - 44.4 % MCV 99 (H) 81 - 98 fL MCH 34.6 (H) 26.7 - 33.3 pg MCHC 34.9 32.1 - 35.9 g/dL RDW-CV 15.8 (H) <14.7 % RDW-SD 57.6 (H) <50.4 fl PLT 150 141 - 377 K/cmm MPV 10.6 9.5 - 12.7 fL Assessment/Plan Assessment 54 y.o.female who was admitted for Left ankle fracture. Subsequently developed abdominal distentionand emesis. Initial imaging showed significant retained rectal stool which improved with bowel regimen including enemas, however she developed more gaseous distention of her colon which has been moredifficult to treat. Narcotics have been held. Worked with PT. Her bowel function is improving. Agree with advancing diet based on clinical progress. Recommend continue aggressive mobilization, out ofbed frequently. No indication for neostigmine or surgical intervention at present. Surgery will sign off. Please reach out with additional questions Elizabeth Ponce MD 02/14/2024 * Shaylee Salazar, RD - 02/14/2024 0932 EDT Nutrition Follow-Up S: Patient resting sitting up in bed with sitter sitting close by. During interview pt attempted todrink arslan lakia and was unable to hold the can to her mouth, lost her price analyst and spilt most of the soda on the blanket. O: Diet Rx: Regular Meds: apixaban, aspirin, buPROPion, cefTRIAXone, cyanocobalamin, folic acid, lactulose, melatonin, methocarbamoL, metoclopramide HCl, OLANZapine, pantoprazole, polyethylene glycol 3350, Prazosin, pregabalin, senna, Lab Results Component Value Date/Time WBC 4.08 02/13/2024 06:11 HGB 11.6 02/13/2024 06:11 HCT 33.1 (L) 02/13/2024 06:11 MCV 99 (H) 02/13/2024 06:11 NA 133 (L) 02/14/2024 06:51 K 4.1 02/14/2024 06:51 CO2 27 02/14/2024 06:51 CL 104 02/14/2024 06:51 BUN 10 02/14/2024 06:51 CREATININE 0.58 02/14/2024 06:51 SERGLU 107 (H) 02/14/2024 06:51 CALCIUM 8.6 02/14/2024 06:51 PHOS 3.1 02/12/2024 06:22 MG 1.7 02/14/2024 06:51 Wt Readings from Last 5 Encounters: 02/04/24 83.8 kg (184 lb 12.8 oz) 09/11/23 94.3 kg (207 lb 14.4 oz) 05/23/23 96.2 kg (212 lb) 08/01/22 63.9 kg (140 lb 14 oz) 03/28/22 60.5 kg (133 lb 4.8 oz) Weights Filed This Admission 02/04/24 1710 Weight: 83.8 kg (184 lb 12.8 oz) PO: 0-25% since diet advancement 02/12. Pt NPO or clear liquids 02/06-02/11. Pt on 75-100 mL/hr D5 for6 days. Skin: No open areas of note GI: Last BM: 02/13/24 A: Diet advanced to regular 02/12. Pt has been ordering small meals with PO intake of 0-25%. Recommend new weight to track any weight loss. Pt agreed to Boost nourishments for an afternoon snack. Stated from nursing, sister, and patient, pt needs soft finger foods 2/2 weak hand price analyst. 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 Will make notes in [employer] to focus on soft finger foods. OT evaluation pending. Bowels have been moving with several BM's 02/11, last one 02/12. Continue bowel meds. Currently replenishing B12 and folate. Dosages appropriate based on labs. Recommend testing vitaminD levels. Last test 03/08/22. At risk for deficiency due to season and poor dietary sources. Plan: Provide Regular Diet as ordered --continue HM shake w/benepro each meal Monitor weight, appetite, PO intake, BM, status Recommend check vitamin D level Will provide Boost nourishments 1x daily for 2pm snack Will provide daily visits for menu assist Gloria Martinez, Window Repairer Agree with nutrition assessment and plan of care. Briefly, 54 yo female admitted with ankle pain, found to have 2 fxs, course c/b low mag, ileus, elevated LFTs, enlarged gallbladder, persistent ileus and UTI. NPO/clears 02/06-, received IVF 02/06-: 02/06- LR at 100 ml/hr 02/07- D5 at 100 ml/hr D5 at 75 ml/hr D5 at 100 ml/hr Diet advanced 02/12, tolerating small amounts of PO, current plan not meeting needs. Pt agreed to try Boost once daily, will provide, in addition to HM shake with benpro each meal to support adequate intake. Visited daily for menu selection. OT eval pending, unclear how much self feeding difficulty is contributing to limited PO currently. Nausea improved some with bowel regimen and home reglan, monitor. Wgt last checked on admit, please recheck to further assess nutritional status. Labs noted, phos wnl on 02/11 despite D5 administration, would suggest good baseline nutritional status, though this is at odds with low vitamin B12 and folate levels. Serum phos could also be artificially elevated by catabolism, difficult to differentiate. 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 Current supplements appropriate, would also recommend MVM daily to further support adequate micronutrient intake in the setting of prolonged poor PO. Vitamin D low end of normal range on last assay, pt at risk for deficiency as above, suggest recheck level, replete prn. Continue to encourage good PO. RD following Shaylee Salazar MS, RD, CD * Jakob Balderrama LPN - 02/14/2024 0316 EDT Pt A&Ox2, on RA, c/o leg tingling/discomfort at the start of shift, stated it was worse in leftleg, CMSTs normal, pt able to feel some sensation, stated it has progressively gotten worse. Poor hand control, requested meds be given to her. PRN tylenol given for pain w/ good effect. L foot in walking boot, stated she wears it daily/while sleeping, allowed it to be removed for assessment but requested it to be put back on. Call light within reach, able to make needs known, reliable to ring. * Mary Villar, AZALEA - 02/13/2024 1804 EDT Images from the original note were not included. Case Management Progress Note: Level of Care: Acute Discharge Plan/Estimated Date of Discharge: ABDIAZIZ/DONATO 2 days Insurance/Payor Source: Medicare A/B, Medicaid applied for Barriers to Discharge: [facility] bed offer Support Network: Lucille (sister/guardian) [place] Continued Planning: Patient is medically ready for DC. Patient is being recommended ABDIAZIZ and [place] (see destinations tab). CM has discussed state wide and local referrals being placed. Patient was active with [facility]. CM will continue to follow. * Andrew Li LPN - 02/13/2024 1750 EDT Data: Pt is a 54 yo F admitted to Med/Surg for sprained left ankle. Pt is A&Ox2. Pt needs 2 person assist with ambulation and voiding. Pt is on a regular diet at this time due to withholding bowel medications, but is taking minimal PO. Pt is more lucid today, but generally weaker. Pt is vocalizing left leg getting weaker with her stay. Pt has trouble grasping with her hands. Pt is incontinent of bowel and has a reyes for acute urinary retention, it is draining cloudy, yellow, sediment. Pt urinalysis confirmed bacterial culture, E. Coli. Nurse started Ceftriaxone. Care plan for today: Pain/Comfort. Action: Assessment performed. Refer to flowsheet for details. Medications administered per order, see MAR. Medications were administered whole in applesauce. Hourly rounding per policy. Q2 positioning. Pt is no longer on fluids. Physical therapy tried to get patient up but she did not have any trunk control. Response: Pt compliant with medication/treatment regimen. Pt participated in the prescribed plan ofcare, Pt resting comfortably in bed at this time. Pt denies any pain or discomfort at this time. Call farris within reach. ANDREW LI LPN 02/12/2024 17:35 * January De Los Santos, PT - 02/13/2024 4185 EDT [facility] Physical Therapy Encounter Note Date of Service: 02/13/2024 Diagnosis: Acute L ankle pain after fall Date of Onset: 02/04/24 Referring Provider: Roe Griggs Precautions: WBAT in walking boot L LE Weight bearing levels LLE: Weight bearing as tolerated SUBJECTIVE: Subjective Statements Patient/caregiver states: I don't know why my arms and legs wont move. Reporting Person Subjective Information Reported by: Patient Pain Evaluation Pain Description: Pain did not interfere with treatment., No pain reported OBJECTIVE: Interventions Completed Today: Physical Therapy Today At: Time: 1600 Total Treatment Time (minutes): 25 Timed Code Treatment Minutes: 25 Interventions Included Procedures: Therapeutic activities Therapeutic Activities Minutes: 25 Patient Status at the End of the Therapy Session The patient was left in the: bed with the: Call farris in reach Patient Status at the End of the Therapy Session Comments: RN notified of patient status. Shoulder Strength (measured using 5-point scale, * indicates pain) Right Left Shoulder Flexion 3 Shoulder Extension Shoulder Abduction Shoulder Adduction Shoulder Internal Rotation Shoulder External Rotation Other Wrist Strength (measured using 5-point scale, * indicates pain) Right Left Wrist Flexion Wrist Extension 3 3 Ulnar Deviation Radial Deviation Other Thumb Strength (measured using 5-point scale, * indicates pain) Right Left Thumb Abduction Thumb Extension Thumb Flexion 3 3 Other Finger Strength (measured using 5-point scale, * indicates pain) Right Left Gross Finger Flexion 3 3 Gross Finger Extension Finger Abduction Finger Adduction Other Hip Strength (measured using 5-point scale, * indicates pain) Right Left Hip Flexion 2 2 Hip Extension Hip Abduction 2 2 Hip Adduction Hip External Rotation Hip Internal Rotation Other Knee Strength (measured using 5-point scale, * indicates pain) Right Left Knee Flexion Knee Extension 2 2 Other Ankle/Foot Strength (measured using 5-point scale, * indicates pain) Right Left Ankle Dorsiflexion 3 NE due to CAM boot Ankle Plantarflexion Ankle Eversion Ankle Inversion Other Sensory Function Additional Comments: reports decreased sensation in BUEs and BLE's but difficult to assess Static Sitting Balance Level of Assistance: Moderate assistance Bed Mobility Patient performed static sitting at EOB with max assist initially progressing to min to mod A with RUE price analyst on hand rail. Trunk ataxia noted in sitting. - rolling with maximal assistance - supine to sit with maximal assistance - sit to supine with maximal assistance Patient/Family Education: Education Topics Activity/Work/Community: Activity modification, Importance of out of bed activity Mobility, Transfers, and Gait: Mobility recommendations, Functional transfers Recommendations: Discharge recommendations/planning, Follow-up services Safety: Fall prevention, Mobility/joint precautions, Weight bearing status Therapy Specific: Role of physical therapy Team Communication Communicated with: Nurse, Physician When: Prior to therapy session, After therapy session By: [id number] communication, Other About: significant decline in functional mobility and strength (notified RN and MD). ASSESSMENT: The patient presents with a physical therapy diagnosis of: Impaired movement system, Impaired mobility, Lower extremity dysfunction Patient with noted profound weakness in all extremities and trunk in comparison to initial PT encounter a week ago. Notified RN and MD with regards to current findings. Patient with limited insight into deficits therefore hard to assess timeframe of current weakness. Patient does not present with adequate mobility to discharge home at this time. Continue to recommend ABDIAZIZ to facilitate maximal functional outcome. PLAN: Necessity: Continue per established treatment plan Patient/Family Education: Discharge planning, Family/caregiver education, Patient education, Role of physical therapy/occupational therapy/rehabilitation, Equipment, Recommendations, Safety, Falls Prevention, Instruction in precautions, Symptom management Recommended Discharge Destination: Subacute rehabilitation Recommended Discharge Services Therapy Specific Services: Occupational therapy, Physical therapy Equipment Recommended: To be determined Next Session to Include: Progress functional transfer training as tolerated. JANUARY DE LOS SANTOS, JUWAN 02/13/2024 17:09 * Elizabeth Ponce MD - 02/13/2024 3818 EDT General Surgery Progress Note Service Date: 02/13/2024 Chief Complaint: Left ankle pain, nausea, abdominal pain 24 Hour Events: Per report, several large BMs. Subjective/Objective Subjective Patient notes several bowel movements over the last 24 hours. Feels that her abdomen is less distended. Nausea much improved and is starting liquids. Objective Vital Signs BP 140/87 Pulse 78 Temp 36.9 ??C (98.4 ??F) (Oral) Resp 16 Ht 170.2 cm (67) Wt 83.8 kg (184 lb 12.8 oz) SpO2 93% BMI 28.94 kg/m?? Physical Exam Physical Examination: General appearance -awake, alert, lying in bed Mental status - alert, oriented to person, place, and time Abdomen -soft, minimally distended. Nontender to exam Musculoskeletal -complains of left ankle pain Labs Results for orders placed or performed during the hospital encounter of 02/04/24 (from the past 24 hour(s)) UA CASCADE TO CULTURE Result Value Ref Range Color UA Yellow Colorless, Yellow Clarity UA Clear Clear Glucose UA Negative Negative mg/dL Bilirubin UA Negative Negative Ketones UA Negative Negative Specific Hematite, Urine 1.020 1.001 - 1.030 Blood UA 1+ (A) Negative pH, UA 6.5 <8.5 Protein UA Negative Negative mg/dL Urobilinogen UA 1.0 0.2-1.0 mg/dL mg/dL Nitrite UA Negative Negative Leukocyte Esterase UA 1+ (A) Negative UA SEDIMENT + REFLEX TO CULTURE Specimen: Urine, Reyes Catheter Urine Result Value Ref Range Urine RBC Count, Manual 3 - 10 (A) 0 - 2 Cells/HPF Urine WBC Count 10 - 50 (A) 0 - 3 Cells/HPF Urine Squamous Count, Manual Few (A) None Seen Cells/HPF Urine Hyaline Cast Count, Manual <=10 <=10 Casts/LPF Urine Bacteria Count, Manual Moderate (A) None Seen Bacteria/HPF BACTERIAL CULTURE, URINE Specimen: Urine, Reyes Catheter Urine Result Value Ref Range Organism ID Greater than 100,000 CFU/ml Escherichia coli (A) MAGNESIUM Result Value Ref Range Magnesium 1.9 1.7 - 2.8 mg/dL BASIC METABOLIC PANEL (BMP) Result Value Ref Range Sodium 131 (L) 136 - 145 mmol/L Potassium 3.9 3.5 - 5.0 mmol/L Chloride 103 96 - 110 mmol/L CO2 Total 27 22 - 32 mmol/L Anion Gap 1 (L) 5 - 14 mmol/L Glucose 99 70 - 99 mg/dl Calcium 8.3 (L) 8.5 - 10.5 mg/dL BUN 7 (L) 10 - 26 mg/dL Creatinine 0.51 (L) 0.52 - 1.04 mg/dL eGFR 109 >60 mL/min/1.73m2 C REACTIVE PROTEIN Result Value Ref Range C-Reactive Protein 26.1 (H) <10.0 mg/L COMPLETE BLOOD COUNT AND DIFFERENTIAL Result Value Ref Range WBC 4.08 4.00 - 12.40 K/cmm RBC 3.35 (L) 3.86 - 5.04 M/cmm Hemoglobin 11.6 11.6 - 15.2 g/dL HCT 33.1 (L) 34.9 - 44.4 % MCV 99 (H) 81 - 98 fL MCH 34.6 (H) 26.7 - 33.3 pg MCHC 35.0 32.1 - 35.9 g/dL RDW-CV 15.9 (H) <14.7 % RDW-SD 57.8 (H) <50.4 fl PLT 125 (L) 141 - 377 K/cmm MPV 10.7 9.5 - 12.7 fL % Neutrophils 60.7 % % Lymphocytes 32.8 % % Monocytes 5.4 % % Eosinophils 0.2 % % Basophils 0.2 % % Immature Grans 0.7 % Absolute Neutrophils 2.47 2.20 - 8.85 K/cmm Absolute Lymphocytes 1.34 1.09 - 3.30 K/cmm Absolute Monocytes 0.22 0.10 - 0.80 K/cmm Absolute Eosinophils 0.01 (L) 0.03 - 0.61 K/cmm ABS Basophils 0.01 0.01 - 0.11 K/cmm Absolute Immature Grans 0.03 0.00 - 0.06 K/cmm Type of Differential: Auto Assessment/Plan Assessment 54 y.o.female who was admitted for Left ankle fracture. Subsequently developed abdominal distentionand emesis. Initial imaging showed significant retained rectal stool which improved with bowel regimen including enemas, however she developed more gaseous distention of her colon which has been moredifficult to treat. Narcotics have been held. Worked with PT. Her bowel function appears to be improving. Agree with advancing diet based on clinical progress. Recommend aggressive mobilization, out of bed frequently. No indication for neostigmine at present. Elizabeth Ponce MD 02/13/2024 * Rosalind Atkins MD - 02/13/2024 0857 EDT Daily Progress Note LOS: 8 days Chief Complaint: Ankle pain Patient Interview: She denies any pain including abdominal pain. She has lots of bowel movements recently. She is not short of breath. She is not normally able to walk on her own. She does feel weak. Her ankle was not hurting her. She wants to work with physical therapy today. She lives alone, but have 2 sisters 1 ofwhom visits regularly. Objective: Vital Signs: Temp: [36.2 ??C (97.1 ??F)-36.9 ??C (98.4 ??F)] , Heart Rate: [103 BPM] , Resp: [16-17] , BP: (140-163)/(87-110) , SpO2: [92 %-96 %] Physical Exam: NAD. Lungs CTA. Heart beat RRR with no murmurs appreciated. Abd soft, nontender to palpation but slightly distended. No VANESSA. Ankle brace on left ankle. Labile affect. Results: Recent Labs 02/11/24 0641 02/12/24 0623 02/13/24 0611 WBC 5.14 4.82 4.08 HGB 12.4 11.2* 11.6 PLT 117* 122* 125* Recent Labs 02/11/24 0641 02/12/24 0622 02/13/24 0611 NA 141 134* 131* K 3.8 4.0 3.9 CL 110 107 103 CO2 25 26 27 BUN 3* <3* 7* CREATININE 0.64 0.53 0.51* No results for input(s): PROTIME, PTT, INR in the last 72 hours. No results for input(s): NTBNP in the last 72 hours. No results for input(s): PSGNP in the last 72 hours. Scheduled Medications: apixaban, 2.5 mg, oral, BID aspirin, 81 mg, oral, DAILY buPROPion, 100 mg, oral, BID cefTRIAXone, 1,000 mg, intravenous, DAILY cyanocobalamin, 1,000 mcg, oral, DAILY folic acid, 1 mg, oral, DAILY lactulose, 200 g, rectal, DAILY melatonin, 9 mg, oral, QHS methocarbamoL, 500 mg, oral, QID metoclopramide HCl, 5 mg, oral, TID AC OLANZapine, 20 mg, oral, QHS pantoprazole, 40 mg, intravenous, DAILY [START ON 02/14/2024] polyethylene glycol 3350, 17 g, oral, DAILY Prazosin, 1 mg, oral, QHS pregabalin, 100 mg, oral, BID senna, 2 Tablet, oral, QHS PRN Medications: acetaminophen, 975 mg, Q6H PRN alteplase, 2 mg, PRN aluminum & magnesium hydroxide-simethicone, 30 mL, Q6H PRN calcium carbonate, 2 Tablet, Q6H PRN carbamide peroxide, 5 Drop, QID PRN lidocaine, , PRN lidocaine, 2 mg, PRN lidocaine, 5 mg, PRN ondansetron, 4 mg, Q4H PRN Or ondansetron (PF), 4 mg, Q4H PRN propRANolol, 10 mg, TID PRN ramelteon, 8 mg, AT BEDTIME PRN Continuous Medications: dextrose 5% lactated ringers with KCl 20 mEq, , Last Rate: 100 mL/hr at 02/13/24 1506 Microbiology: Images: I have independently visualized images XR ABDOMEN 1 VIEW Result Date: 02/11/2024 Persistent air-filled bowel loops, predominantly colonic loops. Degree of distention is slightly decreased compared to prior. No evidence of free air on the acquired views. Summary and Assessment: Ynes White is a 54 y.o. 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 Found to have 2 small avulsion fractures left ankle. Will need ABDIAZIZ per PT recommendations. Hospital course complicated by hypomagnesemia, ileus, retained desiccated stool, elevated LFTs, enlarged gallbladder, persistent ileus. 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 Yesterday her colonic distention on x-ray improved a bit, and today her symptoms are a bit improved, following clinically. Presently without indication for neostigmine or surgery. Plan: Progressive Weakness Concern for ADIP Consult neurology PT following UTI with urinary retention CTX starting 01/24, may need extended course given Reyes placement prior to initiating antibiotics Urinary retention Likely multifactorial from constipation, minimal mobility and UTI Reyes catheter placed Antibiotics for UTI Discontinued and avoid opioids Ileus, intestinal pseudoobstruction, resolved -CT scan 02/08 with 7 cm cecum -X-ray 02/09 with interval increase in the degree of distention -X-ray 02/10 maximal dilated loops measure up to 8 cm which is decreased from 02/09 somewhat. -02/11, her abdominal exam is improved, she has less nausea, has tolerated some p.o. and started to have some bowel movements -Opiates have been stopped -Ambulation/movement. PT consulted -Keep electrolytes repleted. Further magnesium supplementation today -Bowel regimen as tolerated -Patient refused NG tube -Regular diet -General surgery consultation, following Enlarged gallbladder -Noted on CT. Ultrasound with fatty infiltrate of liver but no further gallbladder pathology. No further interventions for now Left ankle avulsion fractures x 2 in the setting of recurrent falls -Walking boot/shoe -PT recommending ABDIAZIZ -Weight-bear as tolerated -Fall precautions -Analgesia with Tylenol as needed, WASH AND GREASER Robaxin, WASH AND GREASER pregabalin, ibuprofen as needed -Avoiding opiate therapy as above Electrolytes/hypomagnesemia, hypocalcemia -Potassium repleted -Replete further magnesium today Macrocytosis with new B12 deficiency, folate deficiency -Unclear if B12 deficiency related to dietary intake or PPI use. - consider measuring intrinsic factor if she becomes anemic -Started vitamin B12, folate supplements -Outpatient follow-up for CBC recheck -Continue WASH AND GREASER PPI Recent hyponatremia, hypernatremia -Sodium normal today. Following. Monitor volume status. Currently on IV crystalloid. Prior cerebral venous sinus thrombosis and provoked PE: WASH AND GREASER apixaban, WASH AND GREASER ASA Chronic pain- WASH AND GREASER pregabalin as above, WASH AND GREASER methocarbamol as above Mood- WASH AND GREASER Wellbutrin, WASH AND GREASER Zyprexa, WASH AND GREASER prazosin, WASH AND GREASER propranolol prn anxiety or tremor GERD- WASH AND GREASER PPI Hospitalist Checklist: DVT ppx: Apixaban Diet: Regular Consults: PT, surgery Discharge Plan: ABDIAZIZ Atkins MD, Hospitalist I spent more than 50 minutes in clinical time solely dedicated to caring for this patient today. Time spent in review of the medical chart, review of labs, review of imaging, examining and evaluatingthe patient, discussion with consultants, treatment planning, placing orders, disease counseling, discharge planning, and coordination of care. This excludes time reported with other services. * Andrew Li LPN - 02/12/2024 1734 EDT Data: Pt is a 54 yo F admitted to Med/Surg for sprained left ankle. Pt is A&Ox2. Pt needs 2 person assist with ambulation and voiding. Pt is on a clear liquid diet at this time. Pt is incontinentof bowel and has a reyes for acute urinary retention, it is draining cloudy, yellow, sediment. Careplan for today: GI//Elimination. Action: Assessment performed. Refer to flowsheet for details. Medications administered per order, see MAR. Hourly rounding per policy. Pt was given 0.25mg IV ativan for nausea. Urinalysis requested. Response: Pt compliant with medication/treatment regimen. Pt participated in the prescribed plan ofcare, Pt emesis decreased after ativan admin. Pt resting comfortably in bed at this time. Pt deniesany pain or discomfort at this time. Call farris within reach. ANDREW LI LPN 02/12/2024 17:35 * Uma Beltran - 02/12/2024 1605 EDT Case Management Progress Note: Level of Care: Acute Discharge Plan/Estimated Date of Discharge: ABDIAZIZ/DONATO 2 days Insurance/Payor Source: Medicare A/B, Medicaid applied for Barriers to Discharge: ABDIAZIZ bed offer Support Network: Lucille (sister/guardian) Transportation: Wheelchair Lucille abernathy Continued Planning: Patient is advancing diet when able and being monitored, surgery following. Patient is being recommended ABDIAZIZ and CM made state wide referrals (see destinations tab). CM has discussed state wide and local referrals being placed. Patient was active with [facility]. CM will continue to follow. * Tegan Bragg, PT - 02/12/2024 2000 EDT [facility] [place] Physical Therapy Encounter Note Date of Service: 02/12/2024 Diagnosis: Acute L ankle pain after fall Date of Onset: 02/04/24 Referring Provider: Roe Griggs Precautions: WBAT in walking boot L LE Weight bearing levels LLE: Weight bearing as tolerated SUBJECTIVE: Subjective Statements Patient is currently having difficulty with: mobility, activity tolerance, transfers/gait Patient/caregiver states: I don't want to fall. Patient/Caregiver Goals Patient and Caregiver Goals: Move around on my own Pain Evaluation Pain Description: Left ankle pain reported, unable to rate 0-10. OBJECTIVE: Interventions Completed Today: Physical Therapy Today At: Time: 1410 Total Treatment Time (minutes): 35 Timed Code Treatment Minutes: 35 Therapy Session: A occupational therapy specialist was present for the physical therapy session Interventions Included Procedures: Therapeutic activities Therapeutic Activities Minutes: 35 Therapeutic Activities 1: Patient approached and agreeable to treatment. Required moderate assistance x 2 to transition from supine to sitting with left boot. Once seated, she required intermittent moderate assistance to maintain edge of bed. Able to tolerate sitting 10 minutes with intermittent support. Out of bed activity deferred due to blood pressure (see below). Required moderate assistance x 2 to transition sitting to supine. Max assistance required to reposition in bed. Therapeutic Activities 2: Vital signs: supine: 82 bpm 174/98 sitting edge of bed 157/115 returned to supine: 90 bpm 97% 164/101 Therapeutic Activities 3: Patient reported dizziness throughout session. Of note, patient vomited at the begninning of the session. Patient Status at the End of the Therapy Session The patient was left in the: bed with the: Call farris in reach Patient Status at the End of the Therapy Session Comments: RN notified of patient status. Patient/Family Education: Education Topics Activity/Work/Community: Activity modification, Importance of out of bed activity Exercise: Exercise guidelines Medical Information/Signs and Symptoms: Vital sign response Mobility, Transfers, and Gait: Mobility recommendations, Bed mobility, Balance training Recommendations: Discharge recommendations/planning, Follow-up services Safety: Fall prevention, Mobility/joint precautions, Weight bearing status Therapy Specific: Role of physical therapy, Treatment plan/goals Team Communication Communicated with: Nurse, Physician When: Prior to therapy session, After therapy session By: [id number] communication, Other About: Mobility performance. VS. Recommendations. ASSESSMENT: The patient presents with a physical therapy diagnosis of: Impaired movement system, Impaired mobility, Lower extremity dysfunction Patient continues to require significant assistance for mobility with limited tolerance for activity based on vital sign response. She appears motivated and cooperative with physical therapy. Continue to recommend ABDIAZIZ at discharge to maximize function and safety prior to returning home. The patient's prior level of function was: modified independent Current status is: below prior level of function The patient's rehabilitation potential is: good Physical Therapy is medically necessary to: address these body structure/function impairments, activity limitations, and participation restrictions, establish and progress mobility/exercise and provide recommendations for staff and safe discharge planning, facilitate return to prior level of function, improve safety and independence The patient: requires sub-acute rehabilitation as next level of care for multiple therapy disciplines at a lower intensity with the expectation to return to prior level of function/living situation. PLAN: Frequency: Times per week Times Per Week: 5 Intensity: 15-45 minutes Duration: Duration of hospitalization Interventions May Include: Therapeutic activities, Neuromuscular re-education, Gait training, Therapeutic exercise, Wheelchair management and training Patient/Family Education: Discharge planning, Family/caregiver education, Patient education, Role of physical therapy/occupational therapy/rehabilitation, Equipment, Recommendations, Safety, Falls Prevention, Instruction in precautions, Symptom management Recommended Discharge Destination: Subacute rehabilitation Recommended Discharge Services Therapy Specific Services: Occupational therapy, Physical therapy Equipment Recommended: To be determined Next Session to Include: Progress functional transfer training as tolerated. Tegan Bragg, JUWAN 02/12/2024 15:21 * Greg Chavez MD - 02/12/2024 1421 EDT [facility] Progress Note Service Date: 02/12/24 Admit Date: 02/04/2024 11:38 Hospital Day: 7 Ynes White is a 54 y.o. female presenting with chief complaint: Ankle pain 24 Hour Events: Treating/monitoring for ileus/pseudoobstruction. Surgical follow-up Repeat abdominal x-ray done again yesterday, with some decrease in colonic dilatation Reyes catheter placed for urinary retention Refused NG tube placement Subjective Episode of emesis overnight. However this morning she took her oral medications, and kept them downwith no emesis for well over an hour. After an enema today some bowel movement. She believes that her abdominal discomfort is a bit better as well as her abdominal distention. Her sister is at the bedside also believes patient is doing a bit better today. No nausea at the time of my evaluation, which was not too long after her oral medications were taken. Otherwise no specific concerns or complaints other than some pain at her ankle fracture site. Review of Systems: A full 10-point review of systems was conducted, and was negative except for pertinent positives as above. Objective Vital Signs Temp: [36.6 ??C (97.9 ??F)-37 ??C (98.6 ??F)] ; Heart Rate: --, Pulse: --; BP: (151-165)/(89-97) ; Resp: [17-20] ; SpO2: [93 %-97 %] I&O I&O By Type - 3 Shifts Including Current In: - Out: 1175 [Urine:1175] PHYSICAL EXAM Gen: Sitting up in bed, simple answers to questions, nontoxic in appearance, no acute distress. Little more relaxed and appears a bit more comfortable today. Sister at bedside. HEENT: EOMI, MMM, no scleral icterus Neck: Supple CV: RRR, no m/r/g Pulm: CTAB, good air movement, no w/r/r Abd: Soft, mild-moderate distention, minimal tenderness to palpation throughout all quadrants no guarding or rebound no peritoneal signs, no HSM GI: +BS, less high-pitched Extrem: Warm and well perfused, no cyanosis or edema. : Reyes present later in the morning Skin: No acute appearing rash. Warm and dry. Sacrum not examined Psych: Normal mood and affect Neuro: Grossly non-focal. CN 2-12 intact Meds: Current Facility-Administered Medications: acetaminophen (TYLENOL) tablet 975 mg, 975 mg, Q6H PRN alteplase (CATHFLO ACTIVASE) injection 2 mg, 2 mg, PRN aluminum & magnesium hydroxide-simethicone (MAALOX PLUS) 200-200-20 mg/5 mL suspension 30 mL, 30 mL, Q6H PRN apixaban (ELIQUIS) tablet 2.5 mg, 2.5 mg, BID aspirin EC tablet 81 mg, 81 mg, DAILY bisacodyL (DULCOLAX) EC tablet 10 mg, 10 mg, DAILY buPROPion (WELLBUTRIN SR) SR tablet 100 mg, 100 mg, BID calcium carbonate (TUMS) tablet 500 mg (200 mg elemental calcium) 2 Tablet, 2 Tablet, Q6H PRN carbamide peroxide (DEBROX) 6.5 % otic solution 5 Drop, 5 Drop, QID PRN cyanocobalamin (VITAMIN B-12) tablet 1,000 mcg, 1,000 mcg, DAILY dextrose 5% lactated ringers with KCl 20 mEq infusion, , CONTINUOUS folic acid (FOLVITE) tablet 1 mg, 1 mg, DAILY ketOROLAC (TORADOL) injection 15 mg, 15 mg, Q6H PRN lactulose (CHRONULAC) 20 gram/30 mL solution 30 mL, 30 mL, Q6H PRN lactulose retention enema (200 gm/300 mL lactulose + 700 mL tap water) 200 g, 200 g, DAILY lidocaine (GLYDO/URO-JET) 2 % jelly in applicator, , PRN lidocaine (PF) 10 mg/mL (1 %) injection 2 mg, 2 mg, PRN lidocaine (PF) 10 mg/mL (1 %) injection 5 mg, 5 mg, PRN magnesium sulfate 2 g in water 50 mL, 2 g, Once (Time Specified) melatonin tablet 9 mg, 9 mg, QHS methocarbamoL (ROBAXIN) tablet 500 mg, 500 mg, QID metoclopramide HCl (REGLAN) tablet 5 mg, 5 mg, TID AC OLANZapine (ZYPREXA) tablet 20 mg, 20 mg, QHS ondansetron (ZOFRAN-ODT) disintegrating tablet 4 mg, 4 mg, Q4H PRN OR ondansetron (PF) (ZOFRAN)injection 4 mg, 4 mg, Q4H PRN pantoprazole (PROTONIX) injection 40 mg, 40 mg, DAILY polyethylene glycol 3350 (MIRALAX) packet 17 g, 17 g, BID Prazosin (MINIPRESS) capsule 1 mg, 1 mg, QHS pregabalin (LYRICA) capsule 100 mg, 100 mg, BID propRANolol (INDERAL) tablet 10 mg, 10 mg, TID PRN ramelteon (ROZEREM) tablet 8 mg, 8 mg, AT BEDTIME PRN senna (SENOKOT) tablet 2 Tablet, 2 Tablet, BID Allergies: Citalopram, Duloxetine, Gabapentin, Levetiracetam, Trazodone, and Zolpidem Results for orders placed or performed during the hospital encounter of 02/04/24 (from the past 24 hour(s)) MAGNESIUM Result Value Ref Range Magnesium 1.6 (L) 1.7 - 2.8 mg/dL BASIC METABOLIC PANEL (BMP) Result Value Ref Range Sodium 134 (L) 136 - 145 mmol/L Potassium 4.0 3.5 - 5.0 mmol/L Chloride 107 96 - 110 mmol/L CO2 Total 26 22 - 32 mmol/L Anion Gap 1 (L) 5 - 14 mmol/L Glucose 115 (H) 70 - 99 mg/dl Calcium 8.4 (L) 8.5 - 10.5 mg/dL BUN <3 (L) 10 - 26 mg/dL Creatinine 0.53 0.52 - 1.04 mg/dL eGFR 108 >60 mL/min/1.73m2 PHOSPHORUS Result Value Ref Range Phosphorus 3.1 2.5 - 4.5 mg/dL COMPLETE BLOOD COUNT AND DIFFERENTIAL Result Value Ref Range WBC 4.82 4.00 - 12.40 K/cmm RBC 3.24 (L) 3.86 - 5.04 M/cmm Hemoglobin 11.2 (L) 11.6 - 15.2 g/dL HCT 33.0 (L) 34.9 - 44.4 % MCV 102 (H) 81 - 98 fL MCH 34.6 (H) 26.7 - 33.3 pg MCHC 33.9 32.1 - 35.9 g/dL RDW-CV 16.8 (H) <14.7 % RDW-SD 63.5 (H) <50.4 fl PLT 122 (L) 141 - 377 K/cmm MPV 10.9 9.5 - 12.7 fL % Neutrophils 66.3 % % Lymphocytes 25.7 % % Monocytes 6.8 % % Eosinophils 0.0 % % Basophils 0.2 % % Immature Grans 1.0 % Absolute Neutrophils 3.19 2.20 - 8.85 K/cmm Absolute Lymphocytes 1.24 1.09 - 3.30 K/cmm Absolute Monocytes 0.33 0.10 - 0.80 K/cmm Absolute Eosinophils 0.00 (L) 0.03 - 0.61 K/cmm ABS Basophils 0.01 0.01 - 0.11 K/cmm Absolute Immature Grans 0.05 0.00 - 0.06 K/cmm Type of Differential: Auto -All labs reviewed independently Recent Imaging: abdominal x-ray 02/10: Agree with imaging read below: FINDINGS: Persistent air-filled, dilated colonic loops currently measuring up to approximately 8 cm. There are few additional suspected air-filled, distended small bowel loops. No free intraperitoneal air evident on the acquired views. IMPRESSION Persistent air-filled bowel loops, predominantly colonic loops. Degree of distention is slightly decreased compared to prior. No evidence of free air on the acquired views. Medical Decision Making: Chart review. Reviewed general surgery input. Discussed with family including sister Assessment Ynes White is a 54 y.o. 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 Found to have 2 small avulsion fractures left ankle. Will need ABDIAZIZ per PT recommendations. Hospital course complicated by hypomagnesemia, ileus, retained desiccated stool, elevated LFTs, enlarged gallbladder, persistent ileus. 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 Yesterday her colonic dist ention on x-ray improved a bit, and today her symptoms are a bit improved, following clinically. Presently without indication for neostigmine or surgery. Plan # Ileus, intestinal pseudoobstruction -CT scan 02/08 with 7 cm cecum -X-ray 02/09 with interval increase in the degree of distention, however on x-ray 02/10 maximal dilated loops measure up to 8 cm which is decreased from 02/09 somewhat. Today (02/11), her abdominal exam is improved, she has less nausea, has tolerated some p.o. and has had some bowel movement. -Appreciate general surgery consultation, following -N.p.o., IV fluids. No need for surgical intervention at this time but surgery will continue to follow -If significant worsening, would consider neostigmine. -Opiates have been stopped -Ambulation/movement. PT consult. -Keep electrolytes repleted. Further magnesium supplementation today -Bowel regimen as tolerated -Patient refused NG tube -If she was to remain n.p.o., would need to start considering parenteral nutrition. However, with symptoms improving I suspect she will be able to start taking p.o. within the next 24 hours. If she continues to improve through today, I will touch base with surgery regarding potentially starting jazzy clear liquids this afternoon. # Enlarged gallbladder -Noted on CT. Ultrasound with fatty infiltrate of liver but no further gallbladder pathology. No further interventions for now # Left ankle avulsion fractures x 2 in the setting of recurrent falls -Walking boot/shoe -PT recommending ABDIAZIZ -Weight-bear as tolerated -Fall precautions -Analgesia with Tylenol as needed, WASH AND GREASER Robaxin, WASH AND GREASER pregabalin, ibuprofen as needed -Avoiding opiate therapy as above # Electrolytes/hypomagnesemia, hypocalcemia -Potassium repleted -Replete further magnesium today # Macrocytosis with new B12 deficiency, folate deficiency -Unclear if B12 deficiency related to dietary intake or PPI use. - consider measuring intrinsic factor if she becomes anemic -Started vitamin B12, folate supplements -Outpatient follow-up for CBC recheck -Continue WASH AND GREASER PPI # Recent hyponatremia, hypernatremia -Sodium normal today. Following. Monitor volume status. Currently on IV crystalloid. 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: WASH AND GREASER apixaban, WASH AND GREASER ASA Chronic pain- WASH AND GREASER pregabalin as above, WASH AND GREASER methocarbamol as above Mood- WASH AND GREASER Wellbutrin, WASH AND GREASER Zyprexa, WASH AND GREASER prazosin, WASH AND GREASER propranolol prn anxiety or tremor GERD- WASH AND GREASER PPI VTE ppx: WASH AND GREASER apixaban Diet: DIET NPO TIME SPECIFIED Discharge Plan: correction facility/Subacute rehab CODE STATUS: Full Code I spent > 50 minutes caring for this patient today, including chart review, time at bedside discussing and examining patient, discussing with members of the medical team, review of data and imaging as outlined above, developing and implementing treatment plan as outlined above, documentation. Includes time reviewing imaging, discussing with family, repeat evaluations through the day. Greg Chavez MD 02/12/2024 14:21 * Tiffany Chirinos - 02/12/2024 1257 EDT S- Pt stated my stomach feels better. O- Pt was given lactulose enema with positive results, mostly enema water with yellow/brown liquid stool. Pt took all medications today with no nausea and vomiting. A- Pt is more cooperative with taking medications. P- continue to monitor stool output, and encouragement to take all medications. Cosigned by Jessica Pollock, RN at 02/12/2024 13:04 EDT * Elizabeth Ponce MD - 02/12/2024 1144 EDT General Surgery Progress Note Service Date: 02/12/2024 Chief Complaint: Left ankle pain, nausea, abdominal pain 24 Hour Events: X-ray yesterday noted similar distention, not increased Subjective/Objective Subjective Patient notes liquid and flatus after enema this morning. Feels that her abdomen is a bit improved.Still having some nausea after oral medications but kept them down longer than yesterday. Objective Vital Signs BP (!) 155/97 (BP Cuff Location: Left arm, BP Patient Position: Sitting) Pulse 78 Temp 36.6 ??C(97.9 ??F) (Oral) Resp 18 Ht 170.2 cm (67) Wt 83.8 kg (184 lb 12.8 oz) SpO2 97% BMI 28.94 kg/m?? Physical Exam Physical Examination: General appearance -awake, alert, lying in bed Mental status - alert, oriented to person, place, and time Abdomen -soft, mildly distended. Nontender to exam Musculoskeletal -complains of left ankle pain Labs Results for orders placed or performed during the hospital encounter of 02/04/24 (from the past 24 hour(s)) MAGNESIUM Result Value Ref Range Magnesium 1.6 (L) 1.7 - 2.8 mg/dL BASIC METABOLIC PANEL (BMP) Result Value Ref Range Sodium 134 (L) 136 - 145 mmol/L Potassium 4.0 3.5 - 5.0 mmol/L Chloride 107 96 - 110 mmol/L CO2 Total 26 22 - 32 mmol/L Anion Gap 1 (L) 5 - 14 mmol/L Glucose 115 (H) 70 - 99 mg/dl Calcium 8.4 (L) 8.5 - 10.5 mg/dL BUN <3 (L) 10 - 26 mg/dL Creatinine 0.53 0.52 - 1.04 mg/dL eGFR 108 >60 mL/min/1.73m2 PHOSPHORUS Result Value Ref Range Phosphorus 3.1 2.5 - 4.5 mg/dL COMPLETE BLOOD COUNT AND DIFFERENTIAL Result Value Ref Range WBC 4.82 4.00 - 12.40 K/cmm RBC 3.24 (L) 3.86 - 5.04 M/cmm Hemoglobin 11.2 (L) 11.6 - 15.2 g/dL HCT 33.0 (L) 34.9 - 44.4 % MCV 102 (H) 81 - 98 fL MCH 34.6 (H) 26.7 - 33.3 pg MCHC 33.9 32.1 - 35.9 g/dL RDW-CV 16.8 (H) <14.7 % RDW-SD 63.5 (H) <50.4 fl PLT 122 (L) 141 - 377 K/cmm MPV 10.9 9.5 - 12.7 fL % Neutrophils 66.3 % % Lymphocytes 25.7 % % Monocytes 6.8 % % Eosinophils 0.0 % % Basophils 0.2 % % Immature Grans 1.0 % Absolute Neutrophils 3.19 2.20 - 8.85 K/cmm Absolute Lymphocytes 1.24 1.09 - 3.30 K/cmm Absolute Monocytes 0.33 0.10 - 0.80 K/cmm Absolute Eosinophils 0.00 (L) 0.03 - 0.61 K/cmm ABS Basophils 0.01 0.01 - 0.11 K/cmm Absolute Immature Grans 0.05 0.00 - 0.06 K/cmm Type of Differential: Auto Assessment/Plan Assessment 54 y.o.female who was admitted for Left ankle fracture. Subsequently developed abdominal distentionand emesis. Initial imaging showed significant retained rectal stool which improved with bowel regimen including enemas, however she developed more gaseous distention of her colon which has been moredifficult to treat. Having some bowel function with interventions. No concerning findings on exam thus far. Continue to maximize conservative management with consideration of neostigmine if her condition worsens. Plan Continue n.p.o. / IVF / bowel regimen Avoid narcotics. Continue Toradol/Tylenol for ankle pain Continue electrolyte repletion Strongly encourage mobilization: Out of bed and up on feet with assistance. Do not defer physical therapy unless physiologically unstable. Active Problems: Elizabeth Ponce MD 02/12/2024 * Suzy Hui LPN - 02/12/2024 0455 EDT Assumed care for patient at [id number]. Patient alert and oriented x3. Assessment done per protocol,see flowsheet for details. Hypoactive bowel sounds in all four quadrants, tenderness to palpate. Patient non-compliant with 2100 medication regiment, see eMAR. Patient attempted to take 0600 am lactose and tylenol for c/o L ankle pain, patient vomited 100mL yellow emesis. PRN IV Toradol and Zofran administered w/ good relief. No Bm overnight. Reyes drainingdark yellow urine. Call farris within reach, hourly rounding preformed. Suzy Hui LPN * Mary Smith, STIVEN - 02/11/2024 1731 EDT Nutrition Follow-Up S: Visited with patient today, sister in room. Pt reports feeling hungry. Pt's sister reports the pt having poor PO intake for approximately the past month. O: Diet Rx: NPO Meds: Current Facility-Administered Medications Medication Route Frequency acetaminophen (TYLENOL) tablet 975 mg oral Q6H PRN alteplase (CATHFLO ACTIVASE) injection 2 mg intercatheter PRN aluminum & magnesium hydroxide-simethicone (MAALOX PLUS) 200-200-20 mg/5 mL suspension 30 mL oral Q6H PRN apixaban (ELIQUIS) tablet 2.5 mg oral BID aspirin EC tablet 81 mg oral DAILY bisacodyL (DULCOLAX) EC tablet 10 mg oral DAILY buPROPion (WELLBUTRIN SR) SR tablet 100 mg oral BID calcium carbonate (TUMS) tablet 500 mg (200 mg elemental calcium) 2 Tablet oral Q6H PRN carbamide peroxide (DEBROX) 6.5 % otic solution 5 Drop both ears QID PRN cyanocobalamin (VITAMIN B-12) tablet 1,000 mcg oral DAILY dextrose 5% lactated ringers with KCl 20 mEq infusion intravenous CONTINUOUS folic acid (FOLVITE) tablet 1 mg oral DAILY ketOROLAC (TORADOL) injection 15 mg intravenous Q6H PRN lactulose (CHRONULAC) 20 gram/30 mL solution 30 mL oral Q4H lactulose retention enema (200 gm/300 mL lactulose + 700 mL tap water) 200 g rectal DAILY lidocaine (GLYDO/URO-JET) 2 % jelly in applicator topical PRN lidocaine (PF) 10 mg/mL (1 %) injection 2 mg intradermal PRN lidocaine (PF) 10 mg/mL (1 %) injection 5 mg intradermal PRN LORazepam (ATIVAN) injection 0.5 mg intravenous Q4H PRN magnesium sulfate 1 g in dextrose 5% 100 mL intravenous Once (Time Specified) melatonin tablet 9 mg oral QHS methocarbamoL (ROBAXIN) tablet 500 mg oral QID metoclopramide HCl (REGLAN) tablet 5 mg oral TID AC OLANZapine (ZYPREXA) tablet 20 mg oral QHS ondansetron (ZOFRAN-ODT) disintegrating tablet 4 mg oral Q4H PRN Or ondansetron (PF) (ZOFRAN) injection 4 mg intravenous Q4H PRN pantoprazole (PROTONIX) injection 40 mg intravenous DAILY polyethylene glycol 3350 (MIRALAX) packet 17 g oral BID potassium chloride SA (KLOR-CON M20) tablet 20 mEq oral Now Prazosin (MINIPRESS) capsule 1 mg oral QHS pregabalin (LYRICA) capsule 100 mg oral BID prochlorperazine (COMPAZINE) tablet 5 mg oral Q6H PRN propRANolol (INDERAL) tablet 10 mg oral TID PRN psyllium husk (with sugar) (METAMUCIL) packet 1 Packet oral DAILY ramelteon (ROZEREM) tablet 8 mg oral AT BEDTIME PRN senna (SENOKOT) tablet 2 Tablet oral BID Lab Results Component Value Date/Time WBC 5.14 02/11/2024 06:41 HGB 12.4 02/11/2024 06:41 HCT 36.9 02/11/2024 06:41 MCV 103 (H) 02/11/2024 06:41 NA 141 02/11/2024 06:41 K 3.8 02/11/2024 06:41 CO2 25 02/11/2024 06:41 CL 110 02/11/2024 06:41 BUN 3 (L) 02/11/2024 06:41 CREATININE 0.64 02/11/2024 06:41 SERGLU 103 (H) 02/11/2024 06:41 CALCIUM 8.8 02/11/2024 06:41 PHOS 4.6 (H) 03/28/2022 05:37 MG 1.6 (L) 02/11/2024 06:41 Wt Readings from Last 5 Encounters: 02/04/24 83.8 kg (184 lb 12.8 oz) 09/11/23 94.3 kg (207 lb 14.4 oz) 05/23/23 96.2 kg (212 lb) 08/01/22 63.9 kg (140 lb 14 oz) 03/28/22 60.5 kg (133 lb 4.8 oz) Weights Filed This Admission 02/04/24 1716 Weight: 83.8 kg (184 lb 12.8 oz) PO: -Regular Diet Order 02/03 -Dysphagia Diet Order 02/04 -Regular Diet Order 02/05 -Clear Liquid Diet Order 02/06 -NPO Diet Order Since 02/07 Skin: No open areas noted GI: Last BM: 02/09/24 A: Pt is a 54 y/o female admitted with sprain of left ankle. 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 Pt noted to have persistent nausea. Pt continues on NPO diet order, since 02/07. Receiving IV D5 since 02/07. Received consult later today regarding possible CPN. Discussion with MD regarding possible PICC placement for CPN, will be decided tomorrow pending pt's clinical course/diet advancement. Labs: Low magnesium 02/10, value of 1.6 mg/dL. Per MD note 02/10, repleted today. Suggest re-checking phosphorus level. Plan: -Monitor nutrition plan of care -Monitor weight, skin, labs, bowel movements, plan of care -Suggest checking phosphorus level -RD following Mary Smith MS, RD, CD. * Sheryl Langley LPN - 02/11/2024 1640 EDT Patient is a 54 y.o. female on hospital day 7 sprained L ankle, weakness, failure to thrive and Ileus. Alert and oriented 1-2. Hourly rounding per policy, shift assessment performed per protocol and without difficulty. Student nurse in to work with patient, patient agreeable to this. Observed to behesitant in responses at times, caregiver in at bedside endorses patient has some baseline aphasia d/t prior CVA. Clear, short descriptions are best understood. Patient currently NPO besides medications, continuous infusion of D5LR w/ [id number] running at 100ml per order. New IV x 1 obtained per IV therapy RN, due to initial R forearm IV leakage. Reyes catheter inserted per MD order, no complications, patent and draining well to gravity. Patient continues to experience nausea, IVP Zofran administered x 1 and to good effect, per RN. Patient continues to endorse abdominal pain and L ankle pain, PRN Toradol administered per RN x1, to good effect. Patient continues to refuse most bowel medications, refused most PO medications due to inability to tolerate PO meds. Bed alarm remains on while in use to due to impaired safety awareness. Will continue to monitor. * Aníbal Gee, PT - 02/11/2024 1616 EDT [facility] Contact Note Date of Service: 02/11/2024 Therapy held due to medical status. ANÍBAL GEE, PT 02/11/2024 16:16 * Uma Beltran - 02/11/2024 1548 EDT Case Management Progress Note: Level of Care: Acute Discharge Plan/Estimated Date of Discharge: ABDIAZIZ/DONATO 6 days Insurance/Payor Source: Medicare A/B, Medicaid applied for Barriers to Discharge: ABDIAZIZ bed offer Support Network: Lucille (sister/guardian) Transportation: Wheelchair Lucille abernathy Continued Planning: Patient pending imaging and surgery following. CM met with patient and Lucille regarding rehabs. CM re informed that statewide and local referrals are being placed and patient currently is looking at being medically ready next week. CM made state wide referrals (see destinations tab). Patient was active with [facility]. CM will continue to follow. * Greg Chavez MD - 02/11/2024 1438 EDT Hospital Medicine Progress Note Service Date: 02/11/24 Admit Date: 02/04/2024 11:38 Hospital Day: 6 Ynes White is a 54 y.o. female presenting with chief complaint: Ankle pain 24 Hour Events: Treating/monitoring for ileus/pseudoobstruction. Surgical follow-up Repeat abdominal x-ray done again today Overnight had urinary retention. Initially had been refusing Reyes catheter on multiple occasions. After some coaching this morning, she did agree to Reyes catheter which was placed. Discussed with patient's sister at bedside today Patient refusing NG tube placement Subjective Episode of emesis earlier today. Still with some nausea. Still abdominal distention and some generalized abdominal discomfort, though difficult to pin her down on specific level of pain. Generally not feeling well. Does not report shortness of breath cough fevers chills headache focal weakness numbness bleeding. 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 Discussed different potential treatment options including neostigmine, surgery, but also discussed that presently medical management is indicated based on degree of distention on imaging. Review of Systems: A full 10-point review of systems was conducted, and was negative except for pertinent positives as above. Objective Vital Signs Temp: [36.4 ??C (97.6 ??F)-36.7 ??C (98 ??F)] ; Heart Rate: [72 BPM-116 BPM] , Pulse: --; BP: (147-165)/(95-100) ; Resp: [16-18] ; SpO2: [93 %-97 %] I&O I&O By Type - 3 Shifts Including Current In: - Out: 600 [Urine:550; Emesis/NG output:50] PHYSICAL EXAM Gen: Sitting up in bed, simple answers to questions, nontoxic in appearance, no acute distress. Seems a bit anxious, uncomfortable. Sister at bedside. HEENT: EOMI, MMM, no scleral icterus Neck: Supple CV: RRR, no m/r/g Pulm: CTAB, good air movement, no w/r/r Abd: Soft, mild-moderate distention, mildly tender to palpation throughout all quadrants no guarding or rebound no peritoneal signs, no HSM GI: +BS, high-pitched Extrem: Warm and well perfused, no cyanosis or edema. : Reyes present later in the morning Skin: No acute appearing rash. Warm and dry. Sacrum not examined Psych: Normal mood and affect Neuro: Grossly non-focal. CN 2-12 intact Meds: Current Facility-Administered Medications: acetaminophen (TYLENOL) tablet 975 mg, 975 mg, Q6H PRN alteplase (CATHFLO ACTIVASE) injection 2 mg, 2 mg, PRN aluminum & magnesium hydroxide-simethicone (MAALOX PLUS) 200-200-20 mg/5 mL suspension 30 mL, 30 mL, Q6H PRN apixaban (ELIQUIS) tablet 2.5 mg, 2.5 mg, BID aspirin EC tablet 81 mg, 81 mg, DAILY bisacodyL (DULCOLAX) EC tablet 10 mg, 10 mg, DAILY buPROPion (WELLBUTRIN SR) SR tablet 100 mg, 100 mg, BID calcium carbonate (TUMS) tablet 500 mg (200 mg elemental calcium) 2 Tablet, 2 Tablet, Q6H PRN carbamide peroxide (DEBROX) 6.5 % otic solution 5 Drop, 5 Drop, QID PRN cyanocobalamin (VITAMIN B-12) tablet 1,000 mcg, 1,000 mcg, DAILY dextrose 5% lactated ringers with KCl 20 mEq infusion, , CONTINUOUS folic acid (FOLVITE) tablet 1 mg, 1 mg, DAILY ketOROLAC (TORADOL) injection 15 mg, 15 mg, Q6H PRN lactulose (CHRONULAC) 20 gram/30 mL solution 30 mL, 30 mL, Q4H lactulose retention enema (200 gm/300 mL lactulose + 700 mL tap water) 200 g, 200 g, DAILY lidocaine (GLYDO/URO-JET) 2 % jelly in applicator, , PRN lidocaine (PF) 10 mg/mL (1 %) injection 2 mg, 2 mg, PRN lidocaine (PF) 10 mg/mL (1 %) injection 5 mg, 5 mg, PRN LORazepam (ATIVAN) injection 0.5 mg, 0.5 mg, Q4H PRN magnesium sulfate 1 g in dextrose 5% 100 mL, 1 g, Once (Time Specified) melatonin tablet 9 mg, 9 mg, QHS methocarbamoL (ROBAXIN) tablet 500 mg, 500 mg, QID metoclopramide HCl (REGLAN) tablet 5 mg, 5 mg, TID AC OLANZapine (ZYPREXA) tablet 20 mg, 20 mg, QHS ondansetron (ZOFRAN-ODT) disintegrating tablet 4 mg, 4 mg, Q4H PRN OR ondansetron (PF) (ZOFRAN)injection 4 mg, 4 mg, Q4H PRN pantoprazole (PROTONIX) injection 40 mg, 40 mg, DAILY polyethylene glycol 3350 (MIRALAX) packet 17 g, 17 g, BID potassium chloride SA (KLOR-CON M20) tablet 20 mEq, 20 mEq, Now Prazosin (MINIPRESS) capsule 1 mg, 1 mg, QHS pregabalin (LYRICA) capsule 100 mg, 100 mg, BID prochlorperazine (COMPAZINE) tablet 5 mg, 5 mg, Q6H PRN propRANolol (INDERAL) tablet 10 mg, 10 mg, TID PRN psyllium husk (with sugar) (METAMUCIL) packet 1 Packet, 1 Packet, DAILY ramelteon (ROZEREM) tablet 8 mg, 8 mg, AT BEDTIME PRN senna (SENOKOT) tablet 2 Tablet, 2 Tablet, BID Allergies: Citalopram, Duloxetine, Gabapentin, Levetiracetam, Trazodone, and Zolpidem Results for orders placed or performed during the hospital encounter of 02/04/24 (from the past 24 hour(s)) POCT GLUCOSE, INTERFACED Result Value Ref Range Glucose, POC 118 (H) 70 - 100 mg/dL HN LAB POC COMMENT (GLUCOSE) Test Performed in [address] [place] [address] MAGNESIUM Result Value Ref Range Magnesium 1.6 (L) 1.7 - 2.8 mg/dL BASIC METABOLIC PANEL (BMP) Result Value Ref Range Sodium 141 136 - 145 mmol/L Potassium 3.8 3.5 - 5.0 mmol/L Chloride 110 96 - 110 mmol/L CO2 Total 25 22 - 32 mmol/L Anion Gap 6 5 - 14 mmol/L Glucose 103 (H) 70 - 99 mg/dl Calcium 8.8 8.5 - 10.5 mg/dL BUN 3 (L) 10 - 26 mg/dL Creatinine 0.64 0.52 - 1.04 mg/dL eGFR 104 >60 mL/min/1.73m2 COMPLETE BLOOD COUNT AND DIFFERENTIAL Result Value Ref Range WBC 5.14 4.00 - 12.40 K/cmm RBC 3.57 (L) 3.86 - 5.04 M/cmm Hemoglobin 12.4 11.6 - 15.2 g/dL HCT 36.9 34.9 - 44.4 % MCV 103 (H) 81 - 98 fL MCH 34.7 (H) 26.7 - 33.3 pg MCHC 33.6 32.1 - 35.9 g/dL RDW-CV 17.6 (H) <14.7 % RDW-SD 67.3 (H) <50.4 fl PLT 117 (L) 141 - 377 K/cmm MPV 10.7 9.5 - 12.7 fL % Neutrophils 63.8 % % Lymphocytes 25.3 % % Monocytes 7.2 % % Eosinophils 0.2 % % Basophils 0.4 % % Immature Grans 3.1 % Absolute Neutrophils 3.28 2.20 - 8.85 K/cmm Absolute Lymphocytes 1.30 1.09 - 3.30 K/cmm Absolute Monocytes 0.37 0.10 - 0.80 K/cmm Absolute Eosinophils 0.01 (L) 0.03 - 0.61 K/cmm ABS Basophils 0.02 0.01 - 0.11 K/cmm Absolute Immature Grans 0.16 (H) 0.00 - 0.06 K/cmm Type of Differential: Auto -All labs reviewed independently Recent Imaging: Reviewed abdominal x-ray independently today, also compared with x-ray from yesterday: Agree with imaging read below: FINDINGS: Persistent air-filled, dilated colonic loops currently measuring up to approximately 8 cm. There are few additional suspected air-filled, distended small bowel loops. No free intraperitoneal air evident on the acquired views. IMPRESSION Persistent air-filled bowel loops, predominantly colonic loops. Degree of distention is slightly decreased compared to prior. No evidence of free air on the acquired views. Medical Decision Making: Chart review. Reviewed general surgery input Assessment Ynes White is a 54 y.o. 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 Found to have 2 small avulsion fractures left ankle. Will need ABDIAZIZ per PT recommendations. 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 Plan # Ileus, intestinal pseudoobstruction -CT scan 02/08 with 7 cm cecum -X-ray 02/09 with interval increase in the degree of distention, however today maximal dilated loopsmeasure up to 8 cm which is decreased from yesterday somewhat. Abdominal exam similar to previous. -Appreciate general surgery consultation, following -N.p.o., IV fluids. No need for surgical intervention at this time but surgery will continue to follow -If worsening, may need neostigmine. -Continue to minimize opiates. Today I have stopped opiates altogether. -Ambulation/movement. -Keep electrolytes repleted. Potassium supplemented today, as well as magnesium. -Bowel regimen as tolerated -Strongly recommending NG tube. She is currently refusing. Will continue to encourage placement of NG tube. Sister was present for these discussions, and felt that patient understood the risks and benefits of refusing NG tube presently. -Given prolonged n.p.o. status, request PICC line placement, also nutrition consult for potential CPN recommendations. # Enlarged gallbladder -Noted on CT. Ultrasound with fatty infiltrate of liver but no further gallbladder pathology. No further interventions for now # Left ankle avulsion fractures x 2 in the setting of recurrent falls -Walking boot/shoe -PT recommending ABDIAZIZ -Weight-bear as tolerated -Fall precautions -Analgesia with Tylenol as needed, WASH AND GREASER Robaxin, WASH AND GREASER pregabalin, ibuprofen as needed -Avoiding opiate therapy as above # Electrolytes/hypomagnesemia, hypocalcemia -Repleted potassium, magnesium today # Macrocytosis with new B12 deficiency, folate deficiency -Unclear if B12 deficiency related to dietary intake or PPI use. - consider measuring intrinsic factor if she becomes anemic -Started vitamin B12, folate supplements -Outpatient follow-up for CBC recheck -Continue WASH AND GREASER PPI # Recent hyponatremia, hypernatremia -Yesterday given D5W with improvement in her hypernatremia. 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: WASH AND GREASER apixaban, WASH AND GREASER ASA Chronic pain- WASH AND GREASER pregabalin as above, WASH AND GREASER methocarbamol as above Mood- WASH AND GREASER Wellbutrin, WASH AND GREASER Zyprexa, WASH AND GREASER prazosin, WASH AND GREASER propranolol prn anxiety or tremor GERD- WASH AND GREASER PPI VTE ppx: WASH AND GREASER apixaban Diet: DIET NPO TIME SPECIFIED Except for: Medications Discharge Plan: correction facility/Subacute rehab CODE STATUS: Full Code I spent > 50 minutes caring for this patient today, including chart review, time at bedside discussing and examining patient, discussing with members of the medical team, review of data and imaging as outlined above, developing and implementing treatment plan as outlined above, documentation. Includes time reviewing imaging, discussing with family, repeat evaluations through the day. Greg Chavez MD 02/11/2024 14:39 * Tiffany Chirinos - 02/11/2024 1305 EDT S- pt stated I am having abdominal pain. O- Reyes catheter was placed at 1230, 550 mL output. Pt refused most medications due to nausea, andspit up watered down potassium. Medicated with oxycodone 5 mg for 7/10 pain in the ankle due to sprain. BP was high throughout the morning 147/100 at 0800 and at 1200 165/100. A- Pt needs encouragement to take all medications P- Medicate for pain and nausea per doctors orders. Continue to encourage taking all medications. Cosigned by Jessica Pollock RN at 02/11/2024 13:24 EDT * Jaylyn Perea MD - 02/11/2024 0845 EDT General Surgery Progress Note CC: nausea/vomiting, abdominal pain Procedure: NA Interval Events: - episode of emesis overnight Subjective: Ynes is not feeling well this morning. Abdominal pain about stable from yesterday. Still with nausea and vomiting, also reporting abdominal bloating and pressure in her mid abdomen. Objective: Vitals: BP (!) 147/100 (BP Cuff Location: Left arm, BP Patient Position: Sitting) Pulse 78 Temp 36.7 ??C (98 ??F) (Oral) Resp 17 Ht 170.2 cm (67) Wt 83.8 kg (184 lb 12.8 oz) SpO2 97% BMI 28.94kg/m?? Intake/Output Summary (Last 24 hours) at 02/11/2024 0845 Last data filed at 02/10/20242027 Gross per 24 hour Intake -- Output 175 ml Net -175 ml Labs: WBC/Hgb/Hct/Plts: 5.14/12.4/36.9/117 (02/10 641) Na/K/Cl/CO2: 141/3.8/110/25 (02/10 641) BUN/Cr/glu/ALT/AST/amyl/lip: 3/0.64/103/--/--/--/-- (02/10 641) Physical Exam: General: Resting in bed, no acute distress Neuro: alert and oriented HEENT: moist mucous membranes Respiratory: CTAB CV: RRR Abdomen: soft, moderately distended, mildly tender to palpation throughout Extremities: warm, no edema Skin: no rashes CT A/P: IMPRESSION 1. Significantly increased gaseous distension throughout the colon, with cecum distended to 7 cm. Smooth tapering to the sigmoid colon without focal wall thickening identified. 2. New fluid level in the rectum with continued mild rectal wall thickening and perirectal edema. 3. No evidence of perforation or drainable collection. XR abdomen: FINDINGS: Again seen are air-filled dilated colonic loops, now measuring up to approximately 10 cm in the right upper quadrant, slightly increased compared to prior. There is no free intraperitoneal air. No significantly dilated small bowel loops are evident. The lung bases are clear.. IMPRESSION Air-filled, distended colonic loops, slight interval increase in degree of distention. No free intraperitoneal air evident. Assessment: Ynes White is a 54 y.o. 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 No evidence of a mechanical obstruction. Abdomen still somewhat distended and still with nausea/vomiting, worsening cecal dilation on XR yesterday. Plan: Recommend repeating abdominal XR. If cecum more dilated, would recommend Neostigmine administration Continue NPO, IVF Continue bowel regimen Minimize narcotics as able Electrolyte repletion to goal K>4, Mg>2 Encourage mobility, OOB and ambulate as tolerated with assistance Jaylyn Perea MD 02/11/2024 8:45 Cosigned by Elizabeth Ponce MD at 02/11/2024 18:38 EDT Associated attestation - Elizabeth Ponce MD - 02/11/2024 1838 EDT Attestation: I performed or was present during the wells or critical portions of the visit and participated in the management of the patient on 02/11/2024. I agree with the findings and plan of care documented in the resident's note. Patient with report of small amount of stool but also continues to have nausea and some emesis. Also urinary retention requiring catheter placement. Abd XR today about the same. Read at 8 cm maximum distention. Recommend avoid narcotics and use non-narcotic medication for pain as much as possible, Continue with electrolyte repletion. Mobilize patient instruct PT to continue working with patient given likely contribution of bedrest as a factor in her condition Consider neostigmine if persistent symptoms or particularly if worsening distention. Elizabeth Ponce MD General Surgery * Suzy Hui LPN - 02/11/2024 0027 EDT Assumed care for patient at [id number]. Patient alert and oriented x1-2. Assessment done per protocol, see flowsheet for details. Patient refused scheduled medication, see eMAR. Patient c/o of L anklepain PRN pain medication administered w/ good effect-see eMAR.Patient had 50cc emesis yellow/brown c olored, PRN Zofran administered x2 this shift w/ good effect. 0400-Bladder scan showing 475mL, patient OOB to commode but unable to void. Patient refused straight cath. Patient elevated HR regular, but tachy running 115-130's bpm. Abd appears more distended, hypoactive bowel sounds in all four quadrants, tenderness to palpate. MD notified of all this. MD discontinued fluids, patient remains NPO. Bed alarm on for safety. Call farris within reach, hourly rounding preformed. Suzy Hui LPN * Greg Chavez MD - 02/10/2024 1751 EDT [facility] Progress Note Service Date: 02/10/24 Admit Date: 02/04/2024 11:38 Hospital Day: 5 Ynes White is a 54 y.o. female presenting with chief complaint: Ankle pain 24 Hour Events: Treating/monitoring for ileus/pseudoobstruction. Surgical follow-up Repeat abdominal x-ray done today Subjective Still with some nausea. She has trouble quantifying her symptoms but seems to indicate abdominal symptoms are similar to yesterday, but perhaps less nausea today compared with yesterday. Pain unchanged. Still with some distention. 6 out of 10 pain at her left ankle fracture site. No other specific subjective report. Feels generally unwell. Did have BM after enema. Review of Systems: A full 10-point review of systems was conducted, and was negative except for pertinent positives as above. Objective Vital Signs Temp: [36.7 ??C (98 ??F)-37.2 ??C (98.9 ??F)] ; Heart Rate: --, Pulse: --; BP: (150-166)/(98-106) ; Resp: [14-17] ; SpO2: [93 %-96 %] I&O No intake/output data recorded. PHYSICAL EXAM Gen: Sitting up in bed, simple answers to questions, nontoxic in appearance, no acute distress HEENT: EOMI, MMM, no scleral icterus Neck: Supple CV: RRR, no m/r/g Pulm: CTAB, good air movement, no w/r/r Abd: Soft, mild distention, mildly tender to palpation throughout all quadrants no guarding or rebound no peritoneal signs, no HSM GI: +BS, high-pitched Extrem: Warm and well perfused, no cyanosis or edema. : Reyes absent Skin: No acute appearing rash. Warm and dry. Sacrum not examined Psych: Normal mood and affect Neuro: Grossly non-focal. CN 2-12 intact Meds: Current Facility-Administered Medications: aluminum & magnesium hydroxide-simethicone (MAALOX PLUS) 200-200-20 mg/5 mL suspension 30 mL, 30 mL, Q6H PRN apixaban (ELIQUIS) tablet 2.5 mg, 2.5 mg, BID aspirin EC tablet 81 mg, 81 mg, DAILY bisacodyL (DULCOLAX) EC tablet 10 mg, 10 mg, DAILY buPROPion (WELLBUTRIN SR) SR tablet 100 mg, 100 mg, BID calcium carbonate (TUMS) tablet 500 mg (200 mg elemental calcium) 2 Tablet, 2 Tablet, Q6H PRN carbamide peroxide (DEBROX) 6.5 % otic solution 5 Drop, 5 Drop, QID PRN cyanocobalamin (VITAMIN B-12) tablet 1,000 mcg, 1,000 mcg, DAILY dextrose 5 % (D5W) infusion, 1,000 mL, CONTINUOUS folic acid (FOLVITE) tablet 1 mg, 1 mg, DAILY HYDROmorphone (PF) (DILAUDID) 0.5 mg/0.5 mL syringe 0.4 mg, 0.4 mg, Q3H PRN lactulose (CHRONULAC) 20 gram/30 mL solution 30 mL, 30 mL, Q4H lactulose retention enema (200 gm/300 mL lactulose + 700 mL tap water) 200 g, 200 g, DAILY lidocaine (GLYDO/URO-JET) 2 % jelly in applicator, , PRN lidocaine (PF) 10 mg/mL (1 %) injection 2 mg, 2 mg, PRN LORazepam (ATIVAN) injection 0.5 mg, 0.5 mg, Q4H PRN melatonin tablet 9 mg, 9 mg, QHS methocarbamoL (ROBAXIN) tablet 500 mg, 500 mg, QID metoclopramide HCl (REGLAN) tablet 5 mg, 5 mg, TID AC OLANZapine (ZYPREXA) tablet 20 mg, 20 mg, QHS ondansetron (ZOFRAN-ODT) disintegrating tablet 4 mg, 4 mg, Q4H PRN OR ondansetron (PF) (ZOFRAN)injection 4 mg, 4 mg, Q4H PRN oxyCODONE (ROXICODONE) immediate release tablet 5 mg, 5 mg, Q4H PRN pantoprazole (PROTONIX) injection 40 mg, 40 mg, DAILY polyethylene glycol 3350 (MIRALAX) packet 17 g, 17 g, BID Prazosin (MINIPRESS) capsule 1 mg, 1 mg, QHS pregabalin (LYRICA) capsule 100 mg, 100 mg, BID prochlorperazine (COMPAZINE) tablet 5 mg, 5 mg, Q6H PRN propRANolol (INDERAL) tablet 10 mg, 10 mg, TID PRN psyllium husk (with sugar) (METAMUCIL) packet 1 Packet, 1 Packet, DAILY ramelteon (ROZEREM) tablet 8 mg, 8 mg, AT BEDTIME PRN senna (SENOKOT) tablet 2 Tablet, 2 Tablet, BID Allergies: Citalopram, Duloxetine, Gabapentin, Levetiracetam, Trazodone, and Zolpidem Results for orders placed or performed during the hospital encounter of 02/04/24 (from the past 24 hour(s)) MAGNESIUM Result Value Ref Range Magnesium 2.1 1.7 - 2.8 mg/dL COMPREHENSIVE METABOLIC PANEL (CMP) Result Value Ref Range Sodium 146 (H) 136 - 145 mmol/L Potassium 3.9 3.5 - 5.0 mmol/L Chloride 116 (H) 96 - 110 mmol/L CO2 Total 24 22 - 32 mmol/L Glucose 138 (H) 70 - 99 mg/dl BUN 4 (L) 10 - 26 mg/dL Creatinine 0.61 0.52 - 1.04 mg/dL eGFR 105 >60 mL/min/1.73m2 Total Protein 5.5 (L) 6.3 - 8.2 g/dL Albumin 2.9 (L) 3.4 - 4.9 g/dL Alkaline Phosphatase 125 38 - 126 U/L AST 21 15 - 46 U/L ALT 24 <35 U/L Bilirubin, Total 0.7 <1.4 mg/dL Calcium 8.7 8.5 - 10.5 mg/dL Albumin/Globulin Ratio 1.1 1.0 - 2.5 Anion Gap 6 5 - 14 mmol/L COMPLETE BLOOD COUNT Result Value Ref Range WBC 4.86 4.00 - 12.40 K/cmm RBC 3.56 (L) 3.86 - 5.04 M/cmm Hemoglobin 12.5 11.6 - 15.2 g/dL HCT 36.3 34.9 - 44.4 % MCV 102 (H) 81 - 98 fL MCH 35.1 (H) 26.7 - 33.3 pg MCHC 34.4 32.1 - 35.9 g/dL RDW-CV 17.4 (H) <14.7 % RDW-SD 65.1 (H) <50.4 fl PLT 151 141 - 377 K/cmm MPV 11.0 9.5 - 12.7 fL SODIUM Result Value Ref Range Sodium 145 136 - 145 mmol/L -All labs reviewed independently Recent Imaging: Reviewed abdominal x-ray independently today, agree with read below: IMPRESSION Air-filled, distended colonic loops, slight interval increase in degree of distention. No free intraperitoneal air evident. Medical Decision Making: Chart review. Reviewed general surgery input Assessment Ynes White is a 54 y.o. 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 Found to have 2 small avulsion fractures left ankle. Will need ABDIAZIZ per PT recommendations. Hospital course has been complicated by hypomagnesemia, ileus, retained desiccated stool, elevated LFTs, enlarged gallbladder, now with persistent ileus, concern for pseu doobstruction. Plan # Ileus, intestinal pseudoobstruction -CT scan 02/08 with 7 cm cecum -X-ray with slight interval increase in degree of distention. Abdominal exam similar to previous. -Appreciate general surgery consultation, following -N.p.o., IV fluids. No need for surgical intervention at this time but surgery will continue to follow -Continue to minimize opiates. I have reduce opiate dosing and frequency. -Ambulation/movement. -Keep electrolytes repleted -Continue bowel regimen # Retained stool on imaging -Reported bowel movements overnight, but still with nausea/emesis -Continue bowel regimen -Trial another lactulose retention enema. # Enlarged gallbladder -Noted on CT. Ultrasound with fatty infiltrate of liver but no further gallbladder pathology. No further interventions for now # Left ankle avulsion fractures x 2 in the setting of recurrent falls -Walking boot/shoe -PT recommending ABDIAZIZ -Weight-bear as tolerated -Fall precautions -Analgesia with Tylenol as needed, WASH AND GREASER Robaxin, WASH AND GREASER pregabalin, ibuprofen as needed -Minimizing opiates as above, have backed off on dosing and frequency # Electrolytes/hypomagnesemia, hypocalcemia -Potassium is 3.9, goal is over 4 so replete further today # Macrocytosis with new B12 deficiency, folate deficiency -Unclear if B12 deficiency related to dietary intake or PPI use. - consider measuring intrinsic factor if she becomes anemic -Started vitamin B12, folate supplements -Outpatient follow-up for CBC recheck -Continue WASH AND GREASER PPI # Recent hyponatremia, now with hypernatremia -Given her hyponatremia, poor p.o. intake, calculated free water deficit 1.8 L. Will give D5W thru today, recheck sodium, adjust IV fluids as needed Chronic conditions: Prior cerebral venous sinus thrombosis and provoked PE: WASH AND GREASER apixaban, WASH AND GREASER ASA Chronic pain- WASH AND GREASER pregabalin as above, WASH AND GREASER methocarbamol as above Mood- WASH AND GREASER Wellbutrin, WASH AND GREASER Zyprexa, WASH AND GREASER prazosin, WASH AND GREASER propranolol prn anxiety or tremor GERD- WASH AND GREASER PPI VTE ppx: WASH AND GREASER apixaban Diet: DIET NPO TIME SPECIFIED Except for: Medications Discharge Plan: correction facility/Subacute rehab CODE STATUS: Full Code I spent > 50 minutes caring for this patient today, including chart review, time at bedside discussing and examining patient, discussing with members of the medical team, review of data and imaging as outlined above, developing and implementing treatment plan as outlined above, documentation. Greg Chavez MD 02/10/2024 17:51 * Uma Beltran - 02/10/2024 1617 EDT Case Management Progress Note: Level of Care: Acute Discharge Plan/Estimated Date of Discharge: ABDIAZIZ/DONATO 3 days Insurance/Payor Source: Medicare A/B, Medicaid applied for Barriers to Discharge: ABDIAZIZ bed offer Support Network: Lucille (sister/guardian) Transportation: Wheelchair Lucille abernathy Continued Planning: [facility] reached out to note that they could not offer the bed anymore. CMspoke with patient and Lucille (sister) regarding this. CM also noted that statewide referrals wouldhave to be placed as well as locals. Patient was active with [facility]. CM will continue to follow. * GilbertTayler reed, PT - 02/10/2024 1257 EDT [facility] [place] Physical Therapy Encounter Note Date of Service: 02/10/2024 Diagnosis: Acute L ankle pain after fall Date of Onset: 02/04/24 Referring Provider: Roe Griggs Precautions: WBAT in walking boot L LE SUBJECTIVE: Subjective Statements Patient is currently having difficulty with: mobility, activity tolerance, transfers/gait Patient/caregiver states: I need people to help me Patient/Caregiver Goals Patient and Caregiver Goals: Feel better Reporting Person Subjective Information Reported by: Patient Pain Evaluation Pain Location: Ankle, Left Pain Intensity - At Present (Scale 0 - 10): 5 OBJECTIVE: Interventions Completed Today: Physical Therapy Today At: Time: 1005 Total Treatment Time (minutes): 35 Timed Code Treatment Minutes: 35 Therapy Session: A occupational therapy specialist was present for the physical therapy session Interventions Included Procedures: Therapeutic activities Therapeutic Activities Minutes: 35 Therapeutic Activities 1: Patient found supine. Agreable to mobilize to EOB with increased encouragement/education. Patient transitioned to seated with supervision and use of bed rail. Seated EOB BP 166/108, HR 119 bpm; BP 163/106, HR 118 bpm. Attempted STS with BUE support. Performed x 2 with mod assist x2. Patient continued to sit suddenly once in full standing reporting increased fear. Obtained Filemonronnie Rust. STS with min assist. Transitioned to chair; min/mod assist x1 to control lowering to chair. BP 150/110, HR 129 bpm. Long discussion re: recommendations for OOB mobility per surgery. Patient Status at the End of the Therapy Session The patient was left in the: recliner with the: Call farris in reach Patient Status at the End of the Therapy Session Comments: RN notified of patient status. Patient/Family Education: Education Topics Activity/Work/Community: Activity modification, Importance of out of bed activity Mobility, Transfers, and Gait: Mobility recommendations, Functional transfers Recommendations: Discharge recommendations/planning, Follow-up services Safety: Fall prevention, Mobility/joint precautions, Weight bearing status Therapy Specific: Role of physical therapy Team Communication Communicated with: Nurse, Physician When: Prior to therapy session, After therapy session, During therapy session By: [id number] communication, Other (Secure chat.) About: Mobility performance. VS. Recommendations. ASSESSMENT: Patient continues to require Filemon Steady support for transfer due to limited tolerance to standing weightshift and report of increased apprehension/discomfort. Patient does not demonstrate adequate mobility to mobilize without extensive physical support - recommend ABDIAZIZ at discharge. PT to continue to follow while inpatient. The patient's prior level of function was: modified independent Current status is: below prior level of function The patient's rehabilitation potential is: good Physical Therapy is medically necessary to: address these body structure/function impairments, activity limitations, and participation restrictions, establish and progress mobility/exercise and provide recommendations for staff and safe discharge planning, facilitate return to prior level of function, improve safety and independence The patient: requires sub-acute rehabilitation as next level of care for multiple therapy disciplines at a lower intensity with the expectation to return to prior level of function/living situation. PLAN: Recommended Discharge Destination: Subacute rehabilitation Recommended Discharge Services Therapy Specific Services: Occupational therapy, Physical therapy Equipment Recommended: To be determined Next Session to Include: Progress functional transfer training as tolerated. Tayler Hunt, PT 02/10/2024 12:57 * Jalyyn Perea MD - 02/10/2024 1005 EDT General Surgery Progress Note CC: nausea/vomiting, abdominal pain Procedure: NA Interval Events: - bowel movement after enema - no acute events Subjective: Ynes reports she is not well due to nausea and vomiting overnight. She reports her abdomen is also painful. She feels that she cannot get out of bed due to abdominal pain but was amenable to trying after we discussed it. She reports that she did have bowel function following an enema. Objective: Vitals: BP (!) 150/98 (BP Cuff Location: Left arm, BP Patient Position: Semi fowlers) Pulse 78 Temp 37.1 ??C (98.7 ??F) (Oral) Resp 17 Ht 170.2 cm (67) Wt 83.8 kg (184 lb 12.8 oz) SpO2 93% BMI28.94 kg/m?? Intake/Output Summary (Last 24 hours) at 02/10/2024 1005 Last data filed at 02/09/2024 1600 Gross per 24 hour Intake -- Output 500 ml Net -500 ml Labs: WBC/Hgb/Hct/Plts: 4.86/12.5/36.3/151 (02/09 650) Na/K/Cl/CO2: 146/3.9/116/24 (02/09 650) BUN/Cr/glu/ALT/AST/amyl/lip: 4/0.61/138/24/21/--/-- (02/09 650) Physical Exam: General: Resting in bed, no acute distress Neuro: alert and oriented HEENT: moist mucous membranes Respiratory: CTAB CV: RRR Abdomen: soft, moderately distended, mildly tender to palpation throughout Extremities: warm, no edema Skin: no rashes CT A/P: IMPRESSION 1. Significantly increased gaseous distension throughout the colon, with cecum distended to 7 cm. Smooth tapering to the sigmoid colon without focal wall thickening identified. 2. New fluid level in the rectum with continued mild rectal wall thickening and perirectal edema. 3. No evidence of perforation or drainable collection. Assessment: Ynes White is a 54 y.o. 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 No evidence of a mechanical obstruction. Now having bowel function but abdomen still somewhat distended and still with nausea/vomiting. Plan: Would obtain abdominal XR to evaluate gas pattern, cecal diameter Continue NPO, IVF Continue bowel regimen Minimize narcotics as able Electrolyte repletion to goal K>4, Mg>2 Encourage mobility, OOB and ambulate as tolerated with assistance Jaylyn Perea MD 02/10/2024 10:05 Cosigned by Elizabeth Ponce MD at 02/10/2024 12:50 EDT Associated attestation - Elizabeth Ponce MD - 02/10/2024 1250 EDT Attestation: I performed or was present during the wells or critical portions of the visit and participated in the management of the patient on 02/10/2024. I agree with the findings and plan of care documented in the resident's note. Patient with some reported bowel movements overnight, but also some emesis. Abdominal exam about the same. Patient is out of bed, but cannot ambulate much at all. Recommend minimize narcotics as muchas possible. Follow-up plain film of the abdomen today. Elizabeth Ponce MD General Surgery * Suzy Hui LPN - 02/10/2024 0149 EDT Assumed care for patient at [id number]. Patient alert and oriented x1-2. Assessment done per protocol, see flowsheet for details. Patient currently NPO besides medication. D5+LR+20K running at 100mL/hr. Patient c/o of L ankle pain PRN IV 0.5 dilaudid given w/ good effect-see eMAR. Patient had one large incontinence overnight-Bladder scan at 0445 showing 117mL. PRN Zofran given at 0613 for nausea. Bed alarm on for safety. Call farris within reach, hourly rounding preformed. Suzy Hui LPN * Gordon Zaidi RN - 02/09/2024 2340 EDT Assumed care for pt at 1845. Pt is on HD #5 for a L ankle sprain. Pt is A&Ox1-2, denies SOB, and CP. Pt is on RA and VSS. Pt has had loose watery stools this shift. Pt expressed pain in L ankle at beginning of the shift. Scheduled meds were administered see eMar. PRN dilaudid given for pain w/ good effect. Pts bed alarm is on, call farris is within reach, and hourly rounding was performed by [facility] staff. Pt was safely maintained. * Marifer Lyman, RD - 02/09/2024 1513 EDT Nutrition Follow-Up S: Patient sleeping this afternoon when attempted to visit. Emesis bag on bed. Follow-up interview deferred. O: Diet Rx: NPO Meds: Current Facility-Administered Medications Medication Route Frequency acetaminophen (TYLENOL) tablet 975 mg oral Q6H aluminum & magnesium hydroxide-simethicone (MAALOX PLUS) 200-200-20 mg/5 mL suspension 30 mL oral Q6H PRN apixaban (ELIQUIS) tablet 2.5 mg oral BID aspirin EC tablet 81 mg oral DAILY bisacodyL (DULCOLAX) EC tablet 10 mg oral DAILY buPROPion (WELLBUTRIN SR) SR tablet 100 mg oral BID calcium carbonate (TUMS) tablet 500 mg (200 mg elemental calcium) 2 Tablet oral Q6H PRN carbamide peroxide (DEBROX) 6.5 % otic solution 5 Drop both ears QID PRN cyanocobalamin (VITAMIN B-12) tablet 1,000 mcg oral DAILY dextrose 5% lactated ringers with KCl 20 mEq infusion intravenous CONTINUOUS folic acid (FOLVITE) tablet 1 mg oral DAILY HYDROmorphone (PF) (DILAUDID) 0.5 mg/0.5 mL syringe 0.5 mg intravenous Q3H PRN ibuprofen (MOTRIN) tablet 600 mg oral QID lactulose (CHRONULAC) 20 gram/30 mL solution 30 mL oral Q4H lactulose retention enema (200 gm/300 mL lactulose + 700 mL tap water) 200 g rectal Q4H lidocaine (PF) 10 mg/mL (1 %) injection 2 mg intradermal PRN lidocaine (XYLOCAINE) 2 % jelly topical PRN LORazepam (ATIVAN) injection 0.5 mg intravenous Q4H PRN melatonin tablet 9 mg oral QHS methocarbamoL (ROBAXIN) tablet 500 mg oral QID metoclopramide HCl (REGLAN) tablet 5 mg oral TID AC OLANZapine (ZYPREXA) tablet 20 mg oral QHS ondansetron (ZOFRAN-ODT) disintegrating tablet 4 mg oral Q4H PRN Or ondansetron (PF) (ZOFRAN) injection 4 mg intravenous Q4H PRN oxyCODONE (ROXICODONE) immediate release tablet 5 mg oral Q4H PRN pantoprazole (PROTONIX) injection 40 mg intravenous DAILY polyethylene glycol 3350 (MIRALAX) packet 17 g oral BID potassium chloride (KAYCIEL) 20 mEq/15 mL oral solution 40 mEq oral Now potassium chloride in water infusion 20 mEq intravenous Now Prazosin (MINIPRESS) capsule 1 mg oral QHS pregabalin (LYRICA) capsule 100 mg oral BID prochlorperazine (COMPAZINE) tablet 5 mg oral Q6H PRN propRANolol (INDERAL) tablet 10 mg oral TID PRN psyllium husk (with sugar) (METAMUCIL) packet 1 Packet oral DAILY ramelteon (ROZEREM) tablet 8 mg oral AT BEDTIME PRN senna (SENOKOT) tablet 2 Tablet oral BID Lab Results Component Value Date/Time WBC 6.14 02/09/2024 07:04 HGB 13.5 02/09/2024 07:04 HCT 38.8 02/09/2024 07:04 MCV 100 (H) 02/09/2024 07:04 NA 140 02/09/2024 07:04 K 3.4 (L) 02/09/2024 07:04 CO2 21 (L) 02/09/2024 07:04 CL 115 (H) 02/09/2024 07:04 BUN 6 (L) 02/09/2024 07:04 CREATININE 0.53 02/09/2024 07:04 SERGLU 140 (H) 02/09/2024 07:04 CALCIUM 9.2 02/09/2024 07:04 PHOS 4.6 (H) 03/28/2022 05:37 MG 1.6 (L) 02/09/2024 07:04 Wt Readings from Last 5 Encounters: 02/04/24 83.8 kg (184 lb 12.8 oz) 09/11/23 94.3 kg (207 lb 14.4 oz) 05/23/23 96.2 kg (212 lb) 08/01/22 63.9 kg (140 lb 14 oz) 03/28/22 60.5 kg (133 lb 4.8 oz) Weights Filed This Admission 02/04/24 0453 Weight: 83.8 kg (184 lb 12.8 oz) PO: Currently NPO. Minimal PO intake the past couple days due to nausea/pain. Skin: No open areas noted. GI: Last 02/08 A: Patient made NPO for US of abdomen this morning. Remains NPO at this time. Started on D5/LR yesterday given poor PO. Reporting continued abdominal pain. Has had multiple loose stools following lactulose and enemas. Continues on bowel regimen, including reglan. Will need to consider parenteral nutrition if unable to advance diet . Plan: -Advance to clear liquid diet as medically feasible. -RD following for diet advancement vs. Initiation of nutrition support Marifer Lyman MS, RD, CD, CNSC * Ayush Camacho - 02/09/2024 1247 EDT S: Patient stated that she had pain in her lower abdomin, patient stated she was nauseated but has had no emesis, since last night. O: Patient refused morning care, stated she had been being washed up all night long and was sore assessment benign, BP slightly elevated, 145/97 and HR 108 pain 05/04, patient was administered PRN Med. Patient had no bowel movement during my shift. A: Dysfunctional gastrointestinal motility P: patient will be relieved from nausea and vomiting. Cosigned by Mary López RN at 02/09/2024 13:11 EDT * Joyce Argueta MD - 02/09/2024 0902 EDT IM Hospitalist Progress Note Service Date: 02/09/24 Admit Date: 02/04/2024 11:38 Hospital Day: 4 Chief Complaint: Sprain of left ankle, unspecified ligament, initial encounter 24 Hour Events: -- Persistent abdominal pain (generalized and RUQ) initial CT scan with significant stool burden and enlarged GB. Retention enemas ordered. Significant improvement in stool burden on repeat CT but cecum is now 7 cm. Surgery consulted. Appreciate recommendations S: Abd pain-- both RUQ and generalized abd pain, nausea, vomiting- intensified overnight O: BP 124/84 Pulse 78 Temp 36.4 ??C (97.5 ??F) Resp 18 Ht 170.2 cm (67) Wt 83.8 kg (184 lb 12.8 oz) SpO2 94% BMI 28.94 kg/m?? Gen: Ill but non-toxic 54-year-old female sleeping when I initially entered the room. Awakens easily. Conversant Eyes: anicteric CV: RRR, no murmurs Pulm: CTA bilaterally, no wheezes Abd: soft, mildly tender to palpation of RUQ, +BS Ext: no rashes, no edema, L ankle with some ecchymosis, mildly tender, ROM intact Psych: appropriate mood and affect Meds reviewed: Current Facility-Administered Medications: acetaminophen (TYLENOL) tablet 975 mg, 975 mg, Q6H aluminum & magnesium hydroxide-simethicone (MAALOX PLUS) 200-200-20 mg/5 mL suspension 30 mL, 30 mL, Q6H PRN apixaban (ELIQUIS) tablet 2.5 mg, 2.5 mg, BID aspirin EC tablet 81 mg, 81 mg, DAILY bisacodyL (DULCOLAX) EC tablet 10 mg, 10 mg, DAILY buPROPion (WELLBUTRIN SR) SR tablet 100 mg, 100 mg, BID calcium carbonate (TUMS) tablet 500 mg (200 mg elemental calcium) 2 Tablet, 2 Tablet, Q6H PRN carbamide peroxide (DEBROX) 6.5 % otic solution 5 Drop, 5 Drop, QID PRN cyanocobalamin (VITAMIN B-12) tablet 1,000 mcg, 1,000 mcg, DAILY dextrose 5% lactated ringers with KCl 20 mEq infusion, , CONTINUOUS folic acid (FOLVITE) tablet 1 mg, 1 mg, DAILY HYDROmorphone (PF) (DILAUDID) 0.5 mg/0.5 mL syringe 0.5 mg, 0.5 mg, Q3H PRN ibuprofen (MOTRIN) tablet 600 mg, 600 mg, QID lactulose (CHRONULAC) 20 gram/30 mL solution 30 mL, 30 mL, Q4H lidocaine (PF) 10 mg/mL (1 %) injection 2 mg, 2 mg, PRN lidocaine (XYLOCAINE) 2 % jelly, , PRN melatonin tablet 9 mg, 9 mg, QHS methocarbamoL (ROBAXIN) tablet 500 mg, 500 mg, QID metoclopramide HCl (REGLAN) tablet 5 mg, 5 mg, TID AC OLANZapine (ZYPREXA) tablet 20 mg, 20 mg, QHS ondansetron (ZOFRAN-ODT) disintegrating tablet 4 mg, 4 mg, Q4H PRN OR ondansetron (PF) (ZOFRAN)injection 4 mg, 4 mg, Q4H PRN oxyCODONE (ROXICODONE) immediate release tablet 5 mg, 5 mg, Q4H PRN pantoprazole (PROTONIX) injection 40 mg, 40 mg, DAILY polyethylene glycol 3350 (MIRALAX) packet 17 g, 17 g, BID Prazosin (MINIPRESS) capsule 1 mg, 1 mg, QHS pregabalin (LYRICA) capsule 100 mg, 100 mg, BID prochlorperazine (COMPAZINE) tablet 5 mg, 5 mg, Q6H PRN propRANolol (INDERAL) tablet 10 mg, 10 mg, TID PRN psyllium husk (with sugar) (METAMUCIL) packet 1 Packet, 1 Packet, DAILY ramelteon (ROZEREM) tablet 8 mg, 8 mg, AT BEDTIME PRN senna (SENOKOT) tablet 2 Tablet, 2 Tablet, BID Labs reviewed: --No leukocytosis --Hyponatremia --BUN 6 -- Hyperchloremic CBC: Recent Labs 02/08/24 0657 02/09/24 0704 WBC 4.46 6.14 RBC 3.84* 3.90 HGB 13.2 13.5 HCT 38.0 38.8 MCV 99* 100* MCH 34.4* 34.6* MCHC 34.7 34.8 PLT 128* 138* BMP: Recent Labs 02/07/24 0715 02/08/24 0657 02/09/24 0704 NA 136 134* 140 K 4.0 3.9 3.4* CL 106 105 115* CO2 20* 22 21* BUN 16 10 6* CREATININE 0.60 0.57 0.53 CALCIUM 8.9 8.3* 9.2 MG 1.7 1.8 1.6* LABALBU 3.2* 2.8* 3.3* Coags: No results for input(s): PROTIME, INR, PTT in the last 72 hours. LFT: Recent Labs 02/07/24 0715 02/08/24 0657 02/09/24 0704 TBIL 0.7 0.7 0.6 ALKPHOS 149* 130* 151* AST 27 23 22 ALT 27 24 27 ABG: No results for input(s): PHISTAT, PCOISTAT, POISTAT, POCTCO2, [id number], POCFIO2 in the last 72 hours. Cardiac Markers: Recent Labs 02/07/24 1349 TROPONINI <0.034 Prealbumin: No results for input(s): PREALBUMIN in the last 72 hours. Inflammatory Markers: Recent Labs 02/09/24 0704 CRP 24.2* Anemia Markers: No results for input(s): [id number], FOLATE in the last 72 hours. Autoimmunity: No results for input(s): RF, HERRERA, ANCA in the last 72 hours. Immunoglobulins: No results for input(s): IGG, IGA, IGM, IGE in the last 72 hours. Hemoglobin A1c: No results for input(s): HGBA1C in the last 72 hours. Glucose: No results for input(s): GLUCOSEFINGE in the last 72 hours. Thyroid Function: No results for input(s): TSH, FREET4 in the last 72 hours. No results for input(s): TSH in the last 72 hours. Incorrect component name entered: FREET Prealbumin: No results for input(s): PREALBUMIN in the last 72 hours. Inflammatory Markers: Recent Labs 02/09/24 0704 CRP 24.2* Anemia Markers: No results for input(s): [id number], FOLATE in the last 72 hours. Autoimmunity: No results for input(s): RF, HERRERA, ANCA in the last 72 hours. Imaging reviewed: US ABDOMEN LIMITED Result Date: 02/09/2024 This exam has been sent to [facility] for reading. The final report is not yet available. XR ABDOMEN 1 VIEW Result Date: 02/08/2024 [...] REGARDING THIS REPORT PLEASE CALL [facility] AT [phone] CT ABDOMEN PELVIS W CONTRAST Result Date: [...] THIS DOCUMENT HAS BEEN ELECTRONICALLY SIGNED BY SOO FAIRBANKS MD FOR ANY QUESTIONS OR CONCERNS REGARDING THIS REPORT PLEASE CALL [facility] AT [phone] XR ABDOMEN 1 VIEW Result Date: 02/07/2024 Mild gaseous distention of a few loops of small and large bowel. Nonspecific, but may reflect mild ileus. CT recommended. [id number] XR ANKLE LEFT 3 OR MORE VIEWS Result Date: 02/04/2024 Tiny avulsion fractures, as discussed. Medial malleolar and distal talar avulsion fractures are newcompared to 2019. [id number] CT HEAD WO CONTRAST Result Date: 02/04/2024 No acute abnormality. [id number] CT ABDOMEN PELVIS W CONTRAST Result Date: 01/29/2024 No acute abnormality. THIS DOCUMENT HAS BEEN ELECTRONICALLY SIGNED BY ELIZABETH WHITTEN MD FOR ANY QUESTIONS OR CONCERNS REGARDING THIS REPORT PLEASE CALL [facility] AT [phone] XR CHEST 2 VIEWS Result Date: 01/29/2024 No acute findings. THIS DOCUMENT HAS BEEN ELECTRONICALLY SIGNED BY ELIZABETH WHITTEN MD FOR ANY QUESTIONSOR CONCERNS REGARDING THIS REPORT PLEASE CALL [facility] AT [phone] CT HEAD WO CONTRAST Result Date: 01/29/[address] Nothing acute. THIS DOCUMENT HAS BEEN ELECTRONICALLY SIGNED BY RAQUEL HOPKINS MD FOR ANY QUESTIONS OR CONCERNS REGARDING THIS REPORT PLEASE CALL [facility] AT [phone] CT ABD and Pelvis IMPRESSION 1. The gallbladder is distended. Consider further assessment with ultrasound if there is right upper quadrant tenderness. 2. Increased stool in the colon. There is a large volume of desiccated stool in the rectal vault with some inflammation noted in the perirectal fat. Consider fecal impaction with associated proctitis. Repeat CT 02/09/24 IMPRESSION 1. Significantly increased gaseous distension throughout the colon, with cecum distended to 7 cm. Smooth tapering to the sigmoid colon without focal wall thickening identified. 2. New fluid level in the rectum with continued mild rectal wall thickening and perirectal edema. 3. No evidence of perforation or drainable collection. 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 Found to have 2 small avulsion fractures of her L ankle, now optimizing paincontrol and PT recommends ABDIAZIZ. Hospital course complicated by hypomagnesemia, ileus, retained, desiccated stool, elevated LFTs and enlarged gallbladder. Now with persistent ileus and concern or pseudo- obstruction. Repeat CT with 77 cm cecum. Surgery consulted. Results as detailed below. Once medically ready she has a bed at [facility] for 02/10/24. PLAN: Ileus and concern for Psueudo-obstruction. -- Repeat CT scan 02/08 with 7 cm cecum. -- Surgery consultation appreciated. NPO, IVF, no need for surgical intervention at this time. Theywill continue to follow. Minimize narcotics. Have patient move as much as possible (ideally ambulate -- but if not roll back and forth).. Retained stool Noted on imaging. Retention enemas ordered. Liquid stool with chunks has been expelled. Repeat CTwith less stool burdun -- Continue to replace electrolyte and continue miralax and retention enemas -- D5 LR Enlarged Gallbladder noted on CT. US with fatty infiltrate of liver but no further GB pathology L ankle pain related to small avulsion fractures x2 in setting of recurrent falls -Walking boot or shoe -PT recommends ABDIAZIZ-- Has bed at [facility] on Saturday -WBAT -F/u Orthopedic Surgery outpatient -Fall precautions -Tylenol 1g q8h prn, WASH AND GREASER robaxin, WASH AND GREASER pregabalin -Start PO ibuprofen 400 mg q6h prn -- Given ileus avoid narcotics Hypomagnesemia -Goal 2.0. Replenish -Mg, BMP daily; can space out once normalized a few days in a row Hypocalcemia: -- Replace Hyponatremia: In setting of pain. Treat underlying disease as detailed above. Fluids as per above. Macrocytosis with new vitamin B12 deficiency and folate deficiency: Unclear if B12 deficiency is related to dietary intake or PPI use, but otherwise no other contributing medication or GI condition known to be contributing. -Consider measuring intrinsic factor if she becomes anemic -New start PO vitamin B12 1000 mcg daily -New start folate supplement -Recheck CBC outpatient in 4-8 weeks to check response -Continue WASH AND GREASER PPI Mild hyponatremia -Trend BMP Chronic conditions: Prior cerebral venous sinus thrombosis and provoked PE: WASH AND GREASER apixaban, WASH AND GREASER ASA Chronic pain- WASH AND GREASER pregabalin as above, WASH AND GREASER methocarbamol as above Mood- WASH AND GREASER Wellbutrin, WASH AND GREASER Zyprexa, WASH AND GREASER prazosin, WASH AND GREASER propranolol prn anxiety or tremor GERD- WASH AND GREASER PPI VTE ppx: WASH AND GREASER apixaban Telemetry: No Dispo: Ileus, RUQ pain, enlarged gall bladder and retained stool are all precluding discharge-- potentially ready for d/c to [facility] on 02/09 I spent more than 50 minutes in clinical time solely dedicated to caring for this patient today. Time spent in review of the medical chart, review of labs, review of imaging, examining and evaluatingthe patient, counseling, discussion with consultants, treatment planning, placing orders, disease counseling, discharge planning, and coordination of care. This excludes time reported with other services. Provider to Provider Communication: -- Case discussed with overnight covering MD (Dr Quigley) and with Dr Ponce (General Surgery) on date of service. 02/09/24 9:02 * Joyce Argueta MD - 02/08/2024 0959 EDT IM Hospitalist Progress Note Service Date: 02/08/24 Admit Date: 02/04/2024 11:38 Hospital Day: 3 Chief Complaint: Sprain of left ankle, unspecified ligament, initial encounter 24 Hour Events: -- Persistent abdominal pain (generalized and RUQ) CT scan with significant stool burden and enlarged GB. -- Xray suggesting ileus. S: Abd pain-- both RUQ and generalized abd pain, nausea, vomiting- O: BP 124/84 (BP Cuff Location: Left arm, BP Patient Position: Supine) Pulse 78 Temp 36.4 ??C (97.5 ??F) (Oral) Resp 16 Ht 170.2 cm (67) Wt 83.8 kg (184 lb 12.8 oz) SpO2 100% BMI 28.94 kg/m?? Gen: Ill but non-toxic 54-year-old female awake, conversant Eyes: anicteric CV: RRR, no murmurs Pulm: CTA bilaterally, no wheezes Abd: soft, mildly tender to palpation of RUQ, +BS Ext: no rashes, no edema, L ankle with some ecchymosis, mildly tender, ROM intact Psych: appropriate mood and affect Meds reviewed: Current Facility-Administered Medications: acetaminophen (TYLENOL) tablet 975 mg, 975 mg, Q6H aluminum & magnesium hydroxide-simethicone (MAALOX PLUS) 200-200-20 mg/5 mL suspension 30 mL, 30 mL, Q6H PRN apixaban (ELIQUIS) tablet 2.5 mg, 2.5 mg, BID aspirin EC tablet 81 mg, 81 mg, DAILY bisacodyL (DULCOLAX) EC tablet 10 mg, 10 mg, DAILY buPROPion (WELLBUTRIN SR) SR tablet 100 mg, 100 mg, BID calcium carbonate (TUMS) tablet 500 mg (200 mg elemental calcium) 2 Tablet, 2 Tablet, Q6H PRN cyanocobalamin (VITAMIN B-12) tablet 1,000 mcg, 1,000 mcg, DAILY folic acid (FOLVITE) tablet 1 mg, 1 mg, DAILY ibuprofen (MOTRIN) tablet 600 mg, 600 mg, QID lactated ringers (LR) infusion, , CONTINUOUS lidocaine (PF) 10 mg/mL (1 %) injection 2 mg, 2 mg, PRN melatonin tablet 9 mg, 9 mg, QHS methocarbamoL (ROBAXIN) tablet 500 mg, 500 mg, QID metoclopramide HCl (REGLAN) tablet 5 mg, 5 mg, TID AC OLANZapine (ZYPREXA) tablet 20 mg, 20 mg, QHS ondansetron (ZOFRAN-ODT) disintegrating tablet 4 mg, 4 mg, Q4H PRN OR ondansetron (PF) (ZOFRAN)injection 4 mg, 4 mg, Q4H PRN oxyCODONE (ROXICODONE) immediate release tablet 5 mg, 5 mg, Q4H PRN pantoprazole (PROTONIX) tablet 40 mg, 40 mg, DAILY BEFORE BREAKFAST polyethylene glycol 3350 (MIRALAX) packet 17 g, 17 g, BID Prazosin (MINIPRESS) capsule 1 mg, 1 mg, QHS pregabalin (LYRICA) capsule 100 mg, 100 mg, BID prochlorperazine (COMPAZINE) tablet 5 mg, 5 mg, Q6H PRN propRANolol (INDERAL) tablet 10 mg, 10 mg, TID PRN ramelteon (ROZEREM) tablet 8 mg, 8 mg, AT BEDTIME PRN senna (SENOKOT) tablet 2 Tablet, 2 Tablet, BID Labs reviewed: --No leukocytosis --Hypocalcemia --Hyponatremia --Elevated alk phos --Trop negative CBC: Recent Labs 02/06/24 0645 02/08/24 0657 WBC 4.60 4.46 RBC 4.05 3.84* HGB 14.0 13.2 HCT 39.4 38.0 MCV 97 99* MCH 34.6* 34.4* MCHC 35.5 34.7 PLT 128* 128* BMP: Recent Labs 02/06/24 0645 02/07/24 0715 02/08/24 0657 NA 135* 136 134* K 3.6 4.0 3.9 CL 103 106 105 CO2 21* 20* 22 BUN 12 16 10 CREATININE 0.57 0.60 0.57 CALCIUM 8.8 8.9 8.3* MG 1.7 1.7 1.8 LABALBU -- 3.2* 2.8* Coags: No results for input(s): PROTIME, INR, PTT in the last 72 hours. LFT: Recent Labs 02/07/24 0715 02/08/24 0657 TBIL 0.7 0.7 ALKPHOS 149* 130* AST 27 23 ALT 27 24 ABG: No results for input(s): PHISTAT, PCOISTAT, POISTAT, POCTCO2, [id number], POCFIO2 in the last 72 hours. Cardiac Markers: Recent Labs 02/07/24 1349 TROPONINI <0.034 Prealbumin: No results for input(s): PREALBUMIN in the last 72 hours. Inflammatory Markers: No results for input(s): SEDRATE, CRP in the last 72 hours. Anemia Markers: No results for input(s): [id number], FOLATE in the last 72 hours. Autoimmunity: No results for input(s): RF, HERRERA, ANCA in the last 72 hours. Immunoglobulins: No results for input(s): IGG, IGA, IGM, IGE in the last 72 hours. Hemoglobin A1c: No results for input(s): HGBA1C in the last 72 hours. Glucose: No results for input(s): GLUCOSEFINGE in the last 72 hours. Thyroid Function: No results for input(s): TSH, FREET4 in the last 72 hours. No results for input(s): TSH in the last 72 hours. Incorrect component name entered: FREET Prealbumin: No results for input(s): PREALBUMIN in the last 72 hours. Inflammatory Markers: No results for input(s): SEDRATE, CRP in the last 72 hours. Anemia Markers: No results for input(s): [id number], FOLATE in the last 72 hours. Autoimmunity: No results for input(s): RF, HERRERA, ANCA in the last 72 hours. Imaging reviewed: CT ABDOMEN PELVIS W CONTRAST Result Date: [...] THIS DOCUMENT HAS BEEN ELECTRONICALLY SIGNED BY SOO FAIRBANKS MD FOR ANY QUESTIONS OR CONCERNS REGARDING THIS REPORT PLEASE CALL [facility] AT [phone] XR ABDOMEN 1 VIEW Result Date: 02/07/2024 Mild gaseous distention of a few loops of small and large bowel. Nonspecific, but may reflect mild ileus. CT recommended. [id number] XR ANKLE LEFT 3 OR MORE VIEWS Result Date: 02/04/2024 Tiny avulsion fractures, as discussed. Medial malleolar and distal talar avulsion fractures are newcompared to 2019. [id number] CT HEAD WO CONTRAST Result Date: 02/04/2024 No acute abnormality. [id number] CT ABDOMEN PELVIS W CONTRAST Result Date: 01/29/2024 No acute abnormality. THIS DOCUMENT HAS BEEN ELECTRONICALLY SIGNED BY ELIZABETH WHITTEN MD FOR ANY QUESTIONS OR CONCERNS REGARDING THIS REPORT PLEASE CALL [facility] AT [phone] XR CHEST 2 VIEWS Result Date: 01/29/2024 No acute findings. THIS DOCUMENT HAS BEEN ELECTRONICALLY SIGNED BY ELIZABETH WHITTEN MD FOR ANY QUESTIONSOR CONCERNS REGARDING THIS REPORT PLEASE CALL [facility] AT [phone] CT HEAD WO CONTRAST Result Date: 01/29/[address] Nothing acute. THIS DOCUMENT HAS BEEN ELECTRONICALLY SIGNED BY RAQUEL HOPKINS MD FOR ANY QUESTIONS OR CONCERNS REGARDING THIS REPORT PLEASE CALL [facility] AT [phone] CT ABD and Pelvis IMPRESSION 1. The gallbladder is distended. Consider further assessment with ultrasound if there is right upper quadrant tenderness. 2. Increased stool in the colon. There is a large volume of desiccated stool in the rectal vault with some inflammation noted in the perirectal fat. Consider fecal impaction with associated proctitis. 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 Found to have 2 small avulsion fractures of her L ankle, now optimizing paincontrol and PT recommends ABDIAZIZ. Hospital course complicated by hypomagnesemia, ileus, retained, desiccated stool, elevated LFTs and enlarged gallbladder. RUQ US pending. Bowel meds and enema ordered. Once medically ready she has a bed at [facility] for 02/10/24. Ileus and retained stool Abdominal pain, nausea and vomiting: ABD Xray suggested ileus. Abd CT with retained stool. Has been rcving narcotics for ankle fracture.On senna 2 tabs BID. Will continue. Have ordered miralax and retention enemas x 2 -- Clear liquid diet. Given poor po intake have switched to D5 LR -- RUQ US ordered and pending Enlarged Gallbladder noted on CT with RUQ tenderness and elevated alk phos -- No leukocytosis. Clear liquid diet. Have ordered RUQ US. Results pending. -- WOULD HAVE A LOW THRESHOLD TO START ANTIBIOTICS AND CONSULT SURGERY IF SHE DEVELOPS A FEVER. -- NPO after midnight for ultrasound in the morning. L ankle pain related to small avulsion fractures x2 in setting of recurrent falls -Walking boot or shoe -PT recommends ABDIAZIZ-- Has bed at [facility] on Saturday -WBAT -F/u Orthopedic Surgery outpatient -Fall precautions -Tylenol 1g q8h prn, WASH AND GREASER robaxin, WASH AND GREASER pregabalin -Start PO ibuprofen 400 mg q6h prn Hypomagnesemia -Goal 2.0. Replenish -Mg, BMP daily; can space out once normalized a few days in a row Hypocalcemia: -- Replace Hyponatremia: In setting of pain. Treat underlying disease as detailed above. Fluids as per above. Macrocytosis with new vitamin B12 deficiency and folate deficiency: Unclear if B12 deficiency is related to dietary intake or PPI use, but otherwise no other contributing medication or GI condition known to be contributing. -Consider measuring intrinsic factor if she becomes anemic -New start PO vitamin B12 1000 mcg daily -New start folate supplement -Recheck CBC outpatient in 4-8 weeks to check response -Continue WASH AND GREASER PPI Mild hyponatremia -Trend BMP Chronic conditions: Prior cerebral venous sinus thrombosis and provoked PE: WASH AND GREASER apixaban, WASH AND GREASER ASA Chronic pain- WASH AND GREASER pregabalin as above, WASH AND GREASER methocarbamol as above Mood- WASH AND GREASER Wellbutrin, WASH AND GREASER Zyprexa, WASH AND GREASER prazosin, WASH AND GREASER propranolol prn anxiety or tremor GERD- WASH AND GREASER PPI VTE ppx: WASH AND GREASER apixaban Telemetry: No Dispo: Ileus, RUQ pain, enlarged gall bladder and retained stool are all precluding discharge-- potentially ready for d/c to [facility] on 02/09 I spent more than 50 minutes in clinical time solely dedicated to caring for this patient today. Time spent in review of the medical chart, review of labs, review of imaging, examining and evaluatingthe patient, counseling, discussion with consultants, treatment planning, placing orders, disease counseling, discharge planning, and coordination of care. This excludes time reported with other services. 02/08/24 9:59 * Jayant Forrester - 02/07/2024 1624 EDT Case Management Progress Note: Level of Care: Acute Discharge Plan/Estimated Date of Discharge: [facility] [place] - Friday 02/09 Insurance/Payor Source: Medicare A/B Barriers to Discharge: Electrolyte imbalance, [facility] saturday Support Network: Sister/guardian Transportation: Wheelchair van, [facility] Continued Planning: Patient has accepted a bed at [facility] for Saturday. CM to follow. Patients sister will provide transportation or wheelchair van. * Aníbal Gee, PT - 02/07/2024 1324 EDT [facility] Contact Note Date of Service: 02/07/2024 Due to nausea/vomiting and discomfort, patient unable to mobilize with therapy. ANÍBAL GEE, PT 02/07/2024 13:26 * Joyce Argueta MD - 02/07/2024 0742 EDT IM Hospitalist Progress Note Service Date: 02/07/24 Admit Date: 02/04/2024 11:38 Hospital Day: 2 Chief Complaint: Sprain of left ankle, unspecified ligament, initial encounter 24 Hour Events: Abd pain, nausea, vomiting-- Xray suggesting ileus. CT pending S: Abd pain, nausea, vomiting- O: BP 124/82 (BP Cuff Location: Left arm, BP Patient Position: Semi fowlers) Pulse 78 Temp 36.4 ??C (97.5 ??F) (Oral) Resp 16 Ht 170.2 cm (67) Wt 83.8 kg (184 lb 12.8 oz) SpO2 99% BMI 28.94 kg/m?? Gen: Ill but non-toxic 54-year-old female awake, conversant Eyes: anicteric CV: RRR, no murmurs Pulm: CTA bilaterally, no wheezes Abd: soft, mildly tender to palpation of RUQ, +BS Ext: no rashes, no edema, L ankle with some ecchymosis, mildly tender, ROM intact Psych: appropriate mood and affect Meds reviewed: Current Facility-Administered Medications: acetaminophen (TYLENOL) tablet 975 mg, 975 mg, Q8H PRN apixaban (ELIQUIS) tablet 2.5 mg, 2.5 mg, BID aspirin EC tablet 81 mg, 81 mg, DAILY bisacodyL (DULCOLAX) EC tablet 10 mg, 10 mg, DAILY buPROPion (WELLBUTRIN SR) SR tablet 100 mg, 100 mg, BID calcium carbonate (TUMS) tablet 500 mg (200 mg elemental calcium) 2 Tablet, 2 Tablet, Q6H PRN cyanocobalamin (VITAMIN B-12) tablet 1,000 mcg, 1,000 mcg, DAILY folic acid (FOLVITE) tablet 1 mg, 1 mg, DAILY ibuprofen (MOTRIN) tablet 400 mg, 400 mg, Q6H PRN lidocaine (PF) 10 mg/mL (1 %) injection 2 mg, 2 mg, PRN melatonin tablet 9 mg, 9 mg, QHS methocarbamoL (ROBAXIN) tablet 500 mg, 500 mg, QID metoclopramide HCl (REGLAN) tablet 5 mg, 5 mg, TID AC OLANZapine (ZYPREXA) tablet 20 mg, 20 mg, QHS ondansetron (ZOFRAN-ODT) disintegrating tablet 4 mg, 4 mg, Q4H PRN OR ondansetron (PF) (ZOFRAN)injection 4 mg, 4 mg, Q4H PRN oxyCODONE (ROXICODONE) immediate release tablet 5 mg, 5 mg, Q4H PRN pantoprazole (PROTONIX) tablet 40 mg, 40 mg, DAILY BEFORE BREAKFAST polyethylene glycol 3350 (MIRALAX) packet 17 g, 17 g, BID Prazosin (MINIPRESS) capsule 1 mg, 1 mg, QHS pregabalin (LYRICA) capsule 100 mg, 100 mg, BID prochlorperazine (COMPAZINE) tablet 5 mg, 5 mg, Q6H PRN propRANolol (INDERAL) tablet 10 mg, 10 mg, TID PRN ramelteon (ROZEREM) tablet 8 mg, 8 mg, AT BEDTIME PRN senna (SENOKOT) tablet 2 Tablet, 2 Tablet, BID Labs reviewed: CBC: Recent Labs 02/04/24 1243 02/06/24 0645 WBC 4.30 4.60 RBC 3.95 4.05 HGB 13.6 14.0 HCT 39.1 39.4 MCV 99* 97 MCH 34.4* 34.6* MCHC 34.8 35.5 PLT 140* 128* NEUTROABS 2.81 -- BMP: Recent Labs 02/04/24 1330 02/06/24 0645 NA 135* 135* K 4.5 3.6 CL 107 103 CO2 25 21* BUN 8* 12 CREATININE 0.60 0.57 CALCIUM 8.5 8.8 MG 1.4* 1.7 LABALBU 3.1* -- Coags: No results for input(s): PROTIME, INR, PTT in the last 72 hours. LFT: Recent Labs 02/04/24 1330 TBIL 0.9 ALKPHOS 89 AST 34 ALT 28 ABG: No results for input(s): PHISTAT, PCOISTAT, POISTAT, POCTCO2, X6UUJRST, POCFIO2 in the last 72 hours. Cardiac Markers: No results for input(s): CK, MB, CKMBINDEX, TROPONINI in the last 72 hours. Prealbumin: No results for input(s): PREALBUMIN in the last 72 hours. Inflammatory Markers: No results for input(s): SEDRATE, CRP in the last 72 hours. Anemia Markers: Recent Labs 02/04/24 1330 [id number] 193* FOLATE 2.02* Autoimmunity: No results for input(s): RF, HERRERA, ANCA in the last 72 hours. Immunoglobulins: No results for input(s): IGG, IGA, IGM, IGE in the last 72 hours. Hemoglobin A1c: No results for input(s): HGBA1C in the last 72 hours. Glucose: No results for input(s): GLUCOSEFINGE in the last 72 hours. Thyroid Function: No results for input(s): TSH, FREET4 in the last 72 hours. No results for input(s): TSH in the last 72 hours. Incorrect component name entered: FREET Prealbumin: No results for input(s): PREALBUMIN in the last 72 hours. Inflammatory Markers: No results for input(s): SEDRATE, CRP in the last 72 hours. Anemia Markers: Recent Labs 02/04/24 1330 [id number] 193* FOLATE 2.02* Autoimmunity: No results for input(s): RF, HERRERA, ANCA in the last 72 hours. Imaging reviewed: XR ANKLE LEFT 3 OR MORE VIEWS Result Date: 02/04/2024 Tiny avulsion fractures, as discussed. Medial malleolar and distal talar avulsion fractures are newcompared to 2019. [id number] CT HEAD WO CONTRAST Result Date: 02/04/2024 No acute abnormality. [id number] CT ABDOMEN PELVIS W CONTRAST Result Date: 01/29/2024 No acute abnormality. THIS DOCUMENT HAS BEEN ELECTRONICALLY SIGNED BY ELIZABETH WHITTEN MD FOR ANY QUESTIONS OR CONCERNS REGARDING THIS REPORT PLEASE CALL [facility] AT [phone] XR CHEST 2 VIEWS Result Date: 01/29/2024 No acute findings. THIS DOCUMENT HAS BEEN ELECTRONICALLY SIGNED BY ELIZABETH WHITTEN MD FOR ANY QUESTIONSOR CONCERNS REGARDING THIS REPORT PLEASE CALL [facility] AT [phone] CT HEAD WO CONTRAST Result Date: 01/29/[address] Nothing acute. THIS DOCUMENT HAS BEEN ELECTRONICALLY SIGNED BY RAQUEL HOPKINS MD FOR ANY QUESTIONS OR CONCERNS REGARDING THIS REPORT PLEASE CALL [facility] AT [phone] A/P: Ynes White is a 54 year old female with chronic low back pain, prior L cerebral venous thrombosis c/b L hemispheric intracerebral hemorrhage c/b focal onset seizures hemorrhagic stroke with residual neurogenic bladder and L- sided sensory changes, provoked PE on low dose apixaban for secondary prevention, and memory disorder with legal guardianship (sister), who presented with L ankle pain after a fall. Found to have 2 small avulsion fractures of her L ankle, now optimizing pain control and PT recommends ABDIAZIZ. Course c/b hypomagnesemia, now improved after replenishment. Medically ready for ABDIAZIZ, plan for [facility] on 02/09. Ileus Abdominal pain, nausea and Vomiting: ABD Xray obtained -- suggested ileus. -- Clear liquid diet, IVF, Ct ordered and pending L ankle pain related to small avulsion fractures x2 in setting of recurrent falls -Walking boot or shoe -PT recommends ABDIAZIZ -WBAT -F/u Orthopedic Surgery outpatient -Fall precautions -Tylenol 1g q8h prn, WASH AND GREASER robaxin, WASH AND GREASER pregabalin -Start PO ibuprofen 400 mg q6h prn Hypomagnesemia -Replenish -Mg, BMP daily; can space out once normalized a few days in a row -WASH AND GREASER reglan prior to meals Macrocytosis with new vitamin B12 deficiency and folate deficiency: Unclear if B12 deficiency is related to dietary intake or PPI use, but otherwise no other contributing medication or GI condition known to be contributing. -Consider measuring intrinsic factor if she becomes anemic -New start PO vitamin B12 1000 mcg daily -New start folate supplement -Recheck CBC outpatient in 4-8 weeks to check response -Continue WASH AND GREASER PPI Mild hyponatremia -Trend BMP Chronic conditions: Prior cerebral venous sinus thrombosis and provoked PE: WASH AND GREASER apixaban, WASH AND GREASER ASA Chronic pain- WASH AND GREASER pregabalin as above, WASH AND GREASER methocarbamol as above Mood- WASH AND GREASER Wellbutrin, WASH AND GREASER Zyprexa, WASH AND GREASER prazosin, WASH AND GREASER propranolol prn anxiety or tremor GERD- WASH AND GREASER PPI VTE ppx: WASH AND GREASER apixaban Telemetry: No IVF: No Reyes: No Dispo: Ileus precluding discharge-- potentially ready for d/c to [facility] on 02/09 I spent more than 50 minutes in clinical time solely dedicated to caring for this patient today. Time spent in review of the medical chart, review of labs, review of imaging, examining and evaluatingthe patient, counseling, discussion with consultants, treatment planning, placing orders, disease counseling, discharge planning, and coordination of care. This excludes time reported with other services. 02/07/24 7:42 * Aníbal Gee, PT - 02/06/2024 1602 EDT [facility] Physical Therapy Encounter Note Date of Service: 02/06/2024 Diagnosis: Acute L ankle pain after fall Date of Onset: 02/04/24 Referring Provider: Roe Griggs Reason for Referral: Evaluate and treat Precautions: WBAT in walking boot L LE SUBJECTIVE: Subjective Statements Patient is currently having difficulty with: mobility, activity tolerance, transfers/gait Patient/caregiver states: Can we have two people, I am afraid. Pain Evaluation Pain Location: Ankle, Left Pain Intensity - At Present (Scale 0 - 10): 6 Pain Frequency: Since injury/accident Pain Quality: Aching Pain Aggravating Factors: Movement Pain Alleviating Factors: Rest Pain Comments: Boot provides some relief OBJECTIVE: Interventions Completed Today: Physical Therapy Today At: Time: 1500 Total Treatment Time (minutes): 17 Timed Code Treatment Minutes: 17 Interventions Included Procedures: Therapeutic activities Therapeutic Activities Minutes: 17 Therapeutic Activities 1: Patient fearful of falling when standing so 2 helper support presnt. Supine to sit I managed then Sit to stand from slightly raised bedside x 3 with walking boot worn throughout. On standing, first attempt, patient anxious about lifting R LE to load l LE. Cues for weight shift and UE support provided. Patient sat suddenly, guarded by helper with ModA1. Repeated with [address] successes[address] Then third trial managed with 5 stepiping shifts. Pain increased with final R step. Returned to supine after rapid decent stand to sit. Patient Status at the End of the Therapy Session The patient was left in the: bed with the: Call farris in reach Patient/Family Education: Education Topics Activity/Work/Community: Activity modification, Importance of out of bed activity Braces and Equipment: Donning/doffing orthosis, Use of orthotics Recommendations: Discharge recommendations/planning Safety: Fall prevention, Mobility/joint precautions, Weight bearing status Therapy Specific: Role of physical therapy ASSESSMENT: The patient presents with a physical therapy diagnosis of: Impaired movement system which is consistent with the medical diagnosis of: L ankle injuries, avulsion fxs, falls at home Difficulties with safe transfers remain high. Patient not yet able to attempt pivot transfer due toinstability in stance when experiencing pain in L LE. Good effort provided but inability to controlstance balance increases with pain. Risk for collapse persists. ABDIAZIZ transition is indicated. PLAN: Patient/Family Education: Discharge planning, Family/caregiver education, Patient education, Role of physical therapy/occupational therapy/rehabilitation, Equipment, Recommendations, Safety, Falls Prevention, Instruction in precautions, Symptom management ANÍBAL GEE, PT 02/06/2024 16:08 * Uma Beltran - 02/06/2024 1558 EDT Case Management Progress Note: Level of Care: Acute Discharge Plan/Estimated Date of Discharge: [facility] 3 days Insurance/Payor Source: Medicare A/B, Medicaid applied for Barriers to Discharge: ABDIAZIZ bed offer Support Network: Lucille (sister/guardian) Transportation: Wheelchair Lucille abernathy Continued Planning: Patient is being recommended for ABDIAZIZ and [facility] offered a bed for Saturday. CM spoke with patient and Lucille regarding [facility] bed offer which they accepted. Patient was active with [facility]. CM will continue to follow. * Shaylee Salazar RD - 02/06/2024 1539 EDT Dietitian Inpatient Assessment S: Patient sitting up watching television. Was excited to talk to nutrition about food choices. 'Breakfast was awful, I couldn't eat it, and I know I need to eat.' This is referring to pureed items on breakfast tray. O: Pt is 54 y.o. female admitted with chief complaint: Sprain of left ankle, unspecified ligament, initial encounter. Past Medical History: Diagnosis Date Cerebral venous sinus thrombosis 02/14/2020 Exercise involving walking flat surfaces History of cranial surgery 07/12/2020 History of general anesthesia Left-sided nontraumatic intracerebral hemorrhage ([facility]) 03/02/2020 Status post decompressive hemicraniectomy Memory disorder Shoulder joint pain right UTI (urinary tract infection) Height: 170.2 cm (67) Weight : 83.8 kg (184 lb 12.8 oz) Body mass index is 28.94 kg/m??. Recent weight changes: Weights Filed This Admission 02/04/24 1713 Weight: 83.8 kg (184 lb 12.8 oz) Wt Readings from Last 10 Encounters: 02/04/24 83.8 kg (184 lb 12.8 oz) 09/11/23 94.3 kg (207 lb 14.4 oz) 05/23/23 96.2 kg (212 lb) 08/01/22 63.9 kg (140 lb 14 oz) 03/28/22 60.5 kg (133 lb 4.8 oz) 02/22/22 59 kg (130 lb) 02/02/22 57.5 kg (126 lb 12.2 oz) 01/16/21 72.6 kg (160 lb) 09/14/20 79.8 kg (176 lb) 07/27/20 79.8 kg (176 lb) . Significant Laboratory Data: Lab Results Component Value Date/Time WBC 4.60 02/06/2024 06:45 HGB 14.0 02/06/2024 06:45 HCT 39.4 02/06/2024 06:45 MCV 97 02/06/2024 06:45 NA 135 (L) 02/06/2024 06:45 K 3.6 02/06/2024 06:45 CO2 21 (L) 02/06/2024 06:45 CL 103 02/06/2024 06:45 BUN 12 02/06/2024 06:45 CREATININE 0.57 02/06/2024 06:45 SERGLU 94 02/06/2024 06:45 CALCIUM 8.8 02/06/2024 06:45 PHOS 4.6 (H) 03/28/2022 05:37 MG 1.7 02/06/2024 06:45 Lab Results Component Value Date/Time HGBA1C 5.4 02/14/2020 17:48 GLUCOSEPOC 98 01/29/2024 00:51 GLUCOSEPOC 84 03/26/2022 08:24 GLUCOSEPOC 95 03/25/2022 06:02 GLUCOSEPOC 111 (H) 03/24/2022 05:57 GLUCOSEPOC 118 (H) 03/23/2022 07:56 Lab Results Component Value Date/Time FOLATE 2.02 (L) 02/04/2024 13:30 [id number] 193 (L) 02/04/2024 13:30 VITD 32 03/08/2022 06:58 No results found for: IRON, TIBC, FERRITIN Skin status and other: Skin Integrity: Abrasion (Left ankle) GI: Last BM: 02/06/24 PO: 50% x 1 Nutritionally significant medications: Scheduled apixaban, 2.5 mg, BID aspirin, 81 mg, DAILY bisacodyL, 10 mg, DAILY buPROPion, 100 mg, BID cyanocobalamin, 1,000 mcg, DAILY folic acid, 1 mg, DAILY melatonin, 9 mg, QHS methocarbamoL, 500 mg, BID metoclopramide HCl, 5 mg, TID AC OLANZapine, 20 mg, QHS pantoprazole, 40 mg, DAILY BEFORE BREAKFAST polyethylene glycol 3350, 17 g, BID Prazosin, 1 mg, QHS pregabalin, 100 mg, BID senna, 2 Tablet, BID Continuous PRN acetaminophen, 975 mg, Q8H PRN calcium carbonate, 2 Tablet, Q6H PRN ibuprofen, 400 mg, Q6H PRN lidocaine, 2 mg, PRN ondansetron, 4 mg, Q4H PRN Or ondansetron (PF), 4 mg, Q4H PRN prochlorperazine, 5 mg, Q6H PRN propRANolol, 10 mg, TID PRN ramelteon, 8 mg, AT BEDTIME PRN sodium phosphate, 1 Enema, Daily PRN Diet order: Advanced to Regular Diet 02/05. Nutrition Risk Level: High (1) Calories needed: 2,095 kcal kcal/kkcal/kg Protein needed: 84-101 g protein grams/k.0-1.2 A: RD Malnutrition Assessment Unable to fully assess for malnutrition at this time. Suspected inadequate PO intake related to pt inability to provide adequate history as evidenced by recent weight loss of 23lbs in 5 months (11%). Patient has 50% PO intake recorded since admission. Pt states losing her teeth after her brain injury and is in the process of surgically replacing all top teeth. Pt stated not being able to eat breakfast due to the pureed form of items. Pt described it as 'gross' and wanted a menu to look at to see what items she could consume. Pt had a hard time describing wanted foods, but was able to point and state which ones she likes and has regularly at home. Pt also described foods she usually has as 'scoopable.' Meaning foods such as: soups, yogurts, oatmeal, cottage cheese. Daily visits provided toassist with menu selection to facilitate adequate intake. Continue to encourage good PO. Pt receives majority of her food at home from her sister/caregiver. Pts sister will cook large portions of food and leave at the house so pt will only have to heat up the food. Pt unable to quantify amounts consumed at home. Will follow up with family as able. It appears pt knows which food she can and cannot have and stated enjoying coleslaw despite lack ofteeth. When asked how pt chews through this item, pt responded: 'I just swallow it.' Will continue to follow pt to ensure diet advancement is satisfactory. Unclear of need for pureed diet. Discussed with MD and will monitor tolerance. Labs noted. B12 and Folate low, etiology unclear, current supplements appropriate, will continue tomonitor. Mag WNL following IV repletion, monitor. Last Vit-D WNL, consider rechecking. Pts weight loss of 11% in 5 months, etiology unclear due to pts inability to provide information. Current weight is up 20kg x2 years from original admission related to stroke. Pt not receptive to supplements at this time, will reassess prn. Encouraged good PO and nutrition. Will visit daily to ensure adequate support. Suggest add MVM daily to support adequate micronutrient intake for healing in the setting of variable PO and weight loss. P: Continue Regular diet, B12, Folate as ordered. Continue to monitor PO intake, weight, status, Provide daily visits for Menu assist. Consider checking Vit-D next labs Please add MVM daily. Encourage good PO Follow up 02/08 Gloria Martinez, Window Repairer. Agree with nutrition assessment and plan of care as documented. Pt unable to provide detailed diet hx at this time, though appears to be eating fairly well. Etiology of wgt loss unclear. Intermittent vomiting noted, takes reglan and marinol at baseline, would continue. Monitor tolerance, PO intake. Micronutrient deficiencies noted, supplements appropriate. Agree with MVM to further support adequate intake. Monitor and reassess prn. RD following Shaylee Salazar MS, RD, CD (Please page RD via PAS) * Apolinar Diallo MD - 02/06/2024 7148 EDT IM Hospitalist Progress Note Service Date: 02/06/24 Admit Date: 02/04/2024 11:38 Hospital Day: 1 Chief Complaint: Sprain of left ankle, unspecified ligament, initial encounter 24 Hour Events: MOHSENO S: Patient feels like she is doing well. Says she isn't eating much because she doesn't like pureedfood and it's regular at home. Also is limiting PO intake due to fear of n/v afterwards. Has no RUQpain and thinks her pain otherwise is well- controlled. Had a good experience at [facility] previously. O: BP (!) 135/99 (BP Cuff Location: Right arm, BP Patient Position: Semi fowlers) Pulse 78 Temp 36.4 ??C (97.5 ??F) (Oral) Resp 16 Ht 170.2 cm (67) Wt 83.8 kg (184 lb 12.8 oz) SpO2 97% BMI 28.94 kg/m?? Gen: NAD, awake, conversant Eyes: anicteric CV: RRR, no murmurs Pulm: CTA bilaterally, no wheezes Abd: soft, mildly tender to palpation of RUQ, +BS Ext: no rashes, no edema, L ankle with some ecchymosis, mildly tender, ROM intact Psych: appropriate mood and affect Meds reviewed: Current Facility-Administered Medications: acetaminophen (TYLENOL) tablet 975 mg, 975 mg, Q8H PRN apixaban (ELIQUIS) tablet 2.5 mg, 2.5 mg, BID aspirin EC tablet 81 mg, 81 mg, DAILY bisacodyL (DULCOLAX) EC tablet 10 mg, 10 mg, DAILY buPROPion (WELLBUTRIN SR) SR tablet 100 mg, 100 mg, BID calcium carbonate (TUMS) tablet 500 mg (200 mg elemental calcium) 2 Tablet, 2 Tablet, Q6H PRN cyanocobalamin (VITAMIN B-12) tablet 1,000 mcg, 1,000 mcg, DAILY folic acid (FOLVITE) tablet 1 mg, 1 mg, DAILY ibuprofen (MOTRIN) tablet 400 mg, 400 mg, Q6H PRN lidocaine (PF) 10 mg/mL (1 %) injection 2 mg, 2 mg, PRN melatonin tablet 9 mg, 9 mg, QHS methocarbamoL (ROBAXIN) tablet 500 mg, 500 mg, BID metoclopramide HCl (REGLAN) tablet 5 mg, 5 mg, TID AC OLANZapine (ZYPREXA) tablet 20 mg, 20 mg, QHS ondansetron (ZOFRAN-ODT) disintegrating tablet 4 mg, 4 mg, Q4H PRN OR ondansetron (PF) (ZOFRAN)injection 4 mg, 4 mg, Q4H PRN pantoprazole (PROTONIX) tablet 40 mg, 40 mg, DAILY BEFORE BREAKFAST polyethylene glycol 3350 (MIRALAX) packet 17 g, 17 g, BID Prazosin (MINIPRESS) capsule 1 mg, 1 mg, QHS pregabalin (LYRICA) capsule 100 mg, 100 mg, BID prochlorperazine (COMPAZINE) tablet 5 mg, 5 mg, Q6H PRN propRANolol (INDERAL) tablet 10 mg, 10 mg, TID PRN ramelteon (ROZEREM) tablet 8 mg, 8 mg, AT BEDTIME PRN senna (SENOKOT) tablet 2 Tablet, 2 Tablet, BID sodium phosphate (FLEET SALINE) enema 1 Enema, 1 Enema, Daily PRN Labs reviewed: CBC: Recent Labs 02/04/24 1243 02/06/24 0645 WBC 4.30 4.60 RBC 3.95 4.05 HGB 13.6 14.0 HCT 39.1 39.4 MCV 99* 97 MCH 34.4* 34.6* MCHC 34.8 35.5 PLT 140* 128* NEUTROABS 2.81 -- BMP: Recent Labs 02/04/24 1330 02/06/24 0645 NA 135* 135* K 4.5 3.6 CL 107 103 CO2 25 21* BUN 8* 12 CREATININE 0.60 0.57 CALCIUM 8.5 8.8 MG 1.4* 1.7 LABALBU 3.1* -- Coags: No results for input(s): PROTIME, INR, PTT in the last 72 hours. LFT: Recent Labs 02/04/24 1330 TBIL 0.9 ALKPHOS 89 AST 34 ALT 28 ABG: No results for input(s): PHISTAT, PCOISTAT, POISTAT, POCTCO2, [id number], POCFIO2 in the last 72 hours. Cardiac Markers: No results for input(s): CK, MB, CKMBINDEX, TROPONINI in the last 72 hours. Prealbumin: No results for input(s): PREALBUMIN in the last 72 hours. Inflammatory Markers: No results for input(s): SEDRATE, CRP in the last 72 hours. Anemia Markers: Recent Labs 02/04/24 1330 [id number] 193* FOLATE 2.02* Autoimmunity: No results for input(s): RF, HERRERA, ANCA in the last 72 hours. Immunoglobulins: No results for input(s): IGG, IGA, IGM, IGE in the last 72 hours. Hemoglobin A1c: No results for input(s): HGBA1C in the last 72 hours. Glucose: No results for input(s): GLUCOSEFINGE in the last 72 hours. Thyroid Function: No results for input(s): TSH, FREET4 in the last 72 hours. No results for input(s): TSH in the last 72 hours. Incorrect component name entered: FREET Prealbumin: No results for input(s): PREALBUMIN in the last 72 hours. Inflammatory Markers: No results for input(s): SEDRATE, CRP in the last 72 hours. Anemia Markers: Recent Labs 02/04/24 1330 [id number] 193* FOLATE 2.02* Autoimmunity: No results for input(s): RF, HERRERA, ANCA in the last 72 hours. Imaging reviewed: XR ANKLE LEFT 3 OR MORE VIEWS Result Date: 02/04/2024 Tiny avulsion fractures, as discussed. Medial malleolar and distal talar avulsion fractures are newcompared to 2019. [id number] CT HEAD WO CONTRAST Result Date: 02/04/2024 No acute abnormality. [id number] CT ABDOMEN PELVIS W CONTRAST Result Date: 01/29/2024 No acute abnormality. THIS DOCUMENT HAS BEEN ELECTRONICALLY SIGNED BY ELIZABETH WHITTEN MD FOR ANY QUESTIONS OR CONCERNS REGARDING THIS REPORT PLEASE CALL [facility] AT [phone] XR CHEST 2 VIEWS Result Date: 01/29/2024 No acute findings. THIS DOCUMENT HAS BEEN ELECTRONICALLY SIGNED BY ELIZABETH WHITTEN MD FOR ANY QUESTIONSOR CONCERNS REGARDING THIS REPORT PLEASE CALL [facility] AT [phone] CT HEAD WO CONTRAST Result Date: 01/29/[address] Nothing acute. THIS DOCUMENT HAS BEEN ELECTRONICALLY SIGNED BY RAQUEL HOPKINS MD FOR ANY QUESTIONS OR CONCERNS REGARDING THIS REPORT PLEASE CALL [facility] AT [phone] A/P: Ynes White is a 54 year old female with chronic low back pain, prior L cerebral venous thrombosis c/b L hemispheric intracerebral hemorrhage c/b focal onset seizures hemorrhagic stroke with residual neurogenic bladder and L- sided sensory changes, provoked PE on low dose apixaban for secondary prevention, and memory disorder with legal guardianship (sister), who presented with L ankle pain after a fall. Found to have 2 small avulsion fractures of her L ankle, now optimizing pain control and PT recommends ABDIAZIZ. Course c/b hypomagnesemia, now improved after replenishment. Medically ready for ABDIAZIZ, plan for [place] on 02/09. L ankle pain related to small avulsion fractures x2 in setting of recurrent falls -Walking boot or shoe -PT recommends ABDIAZIZ -WBAT -F/u Orthopedic Surgery outpatient -Fall precautions -Tylenol 1g q8h prn, WASH AND GREASER robaxin, WASH AND GREASER pregabalin -Start PO ibuprofen 400 mg q6h prn Hypomagnesemia thought to be related to intermittent vomiting: Mentioned some blood streaks in vomit, though unclear if this was truly blood as Hgb has been stable, but is on apixaban. -Replenish -Mg, BMP daily; can space out once normalized a few days in a row -Check EKG -PO zofran prn; wasn't helping much -Start PO compazine prn prior to meals -WASH AND GREASER reglan prior to meals -Stop checking CBC Macrocytosis with new vitamin B12 deficiency and folate deficiency: Unclear if B12 deficiency is related to dietary intake or PPI use, but otherwise no other contributing medication or GI condition known to be contributing. -Consider measuring intrinsic factor if she becomes anemic -New start PO vitamin B12 1000 mcg daily -New start folate supplement -Recheck CBC outpatient in 4-8 weeks to check response -Continue WASH AND GREASER PPI Mild hyponatremia -Trend BMP Chronic conditions: Prior cerebral venous sinus thrombosis and provoked PE: WASH AND GREASER apixaban, WASH AND GREASER ASA Chronic pain- WASH AND GREASER pregabalin as above, WASH AND GREASER methocarbamol as above Mood- WASH AND GREASER Wellbutrin, WASH AND GREASER Zyprexa, WASH AND GREASER prazosin, WASH AND GREASER propranolol prn anxiety or tremor GERD- WASH AND GREASER PPI VTE ppx: WASH AND GREASER apixaban Telemetry: No IVF: No Reyes: No Dispo: Medically ready for ABDIAZIZ, plan for [place] on 02/09 I spent more than 50 minutes in clinical time solely dedicated to caring for this patient today. Time spent in review of the medical chart, review of labs, review of imaging, examining and evaluatingthe patient, counseling, discussion with consultants, treatment planning, placing orders, disease counseling, discharge planning, and coordination of care. This excludes time reported with other services. Apolinar Diallo MD Internal Medicine Hospitalist 02/06/24 15:38 * Stacey Jules - 02/05/2024 1511 EDT Pt is seen at home by RN, PT, OT, BILLET GRINDER services from [facility] ([facility]). It was been reported to me and others that sister caring for her at home can no longer do it and pt is agreeable to ABDIAZIZ. Will follow and assist as needed. * Aníbal Gee, PT - 02/05/2024 1011 EDT [facility] Contact Note Date of Service: 02/05/2024 Patient approached in am for attempt at activity. She is nauseated, vomiting. Will check back. ANÍBAL GEE, PT 02/05/2024 10:12 * Mirtha Cortez - 02/05/2024 0923 EDT Level 1 Nutrition Complexity Assessment: Reason for visit: Nursing Screen Trigger S: my sister brings me these sometimes... I like all kinds in reference to Chobani yogurt on mealtray. My brain injury, I don't know what that means. when asked about UBW. O: Pt has been screened for nutritional risk Diet: Regular Height: 170.2 cm (67) Weight : 83.8 kg (184 lb 12.8 oz) Body mass index is 28.94 kg/m??. Wt Readings from Last 8 Encounters: 02/04/24 83.8 kg (184 lb 12.8 oz) 09/11/23 94.3 kg (207 lb 14.4 oz) 05/23/23 96.2 kg (212 lb) 08/01/22 63.9 kg (140 lb 14 oz) 03/28/22 60.5 kg (133 lb 4.8 oz) 02/22/22 59 kg (130 lb) 02/02/22 57.5 kg (126 lb 12.2 oz) 01/16/21 72.6 kg (160 lb) Weights Filed This Admission 02/04/24 1713 Weight: 83.8 kg (184 lb 12.8 oz) Relevant Labs: Lab Results Component Value Date WBC 4.30 02/04/2024 RBC 3.95 02/04/2024 HGB 13.6 02/04/2024 HCT 39.1 02/04/2024 MCV 99 (H) 02/04/2024 MCH 34.4 (H) 02/04/2024 PLT 140 (L) 02/04/2024 NA 135 (L) 02/04/2024 K 4.5 02/04/2024 CL 107 02/04/2024 CO2 25 02/04/2024 BUN 8 (L) 02/04/2024 CREATININE 0.60 02/04/2024 SERGLU 86 02/04/2024 CALCIUM 8.5 02/04/2024 VITD 32 03/08/2022 Albumin: 3.1 (L) Total Pro: 5.7 (L) B12: 193 (L) Relevant Meds: Current Facility-Administered Medications Medication Route Frequency acetaminophen (TYLENOL) tablet 975 mg oral Q8H PRN apixaban (ELIQUIS) tablet 2.5 mg oral BID aspirin EC tablet 81 mg oral DAILY bisacodyL (DULCOLAX) EC tablet 10 mg oral DAILY buPROPion (WELLBUTRIN SR) SR tablet 100 mg oral BID calcium carbonate (TUMS) tablet 500 mg (200 mg elemental calcium) 2 Tablet oral Q6H PRN cyanocobalamin (VITAMIN B-12) tablet 1,000 mcg oral DAILY lidocaine (PF) 10 mg/mL (1 %) injection 2 mg intradermal PRN melatonin tablet 9 mg oral QHS methocarbamoL (ROBAXIN) tablet 500 mg oral BID metoclopramide HCl (REGLAN) tablet 5 mg oral TID AC OLANZapine (ZYPREXA) tablet 20 mg oral QHS pantoprazole (PROTONIX) tablet 40 mg oral DAILY polyethylene glycol 3350 (MIRALAX) packet 17 g oral Daily PRN Prazosin (MINIPRESS) capsule 1 mg oral QHS pregabalin (LYRICA) capsule 100 mg oral BID propRANolol (INDERAL) tablet 10 mg oral TID PRN ramelteon (ROZEREM) tablet 8 mg oral QHS PRN senna (SENOKOT) tablet 2 Tablet oral QHS PRN GI: not documented this admission Skin: no open areas of note %PO intake: not documented this admission A: Patient is determined to be at high nutritional complexity secondary to risk factors including recent unplanned wt loss, poor PO, altered mentation. Pt was triggered on admission in nursing screen for dietitian consult needed, however there was nothing listed under reason for consult. Pt is prescribed regular diet, is without significant nutr complexities. Pt seen in the past by nutr services for aphasia, dysphagia, N/V poor appetite/intake, however no reports of these on admission. Pt was a bit confused and was having trouble providing accurate hx during my time of interview. Wasunable to provide me with her UBW, however reports that she is down 30lbs. Documented wt hx shows that she was 94.3kgs // 207 lbs in August 2023, and is currently 83.3kgs // 184 lbs. This indicates a 23 lb // 11% wt loss in <6m. Pt reports poor PO 2/2 a painful tooth, but later reports that she doesn't eat well because she doesn't feel hungry. This was a bit confusing. Pt is agreeable to Chobani yogurts on all meal trays. Endorses eating them at baseline, likes all the flavors. No documented report of open skin areas. Out of range lab values indicated above. B12 repletion in process; pt receiving 1000 mcg (oral) X42accpu. Recommend adding multivitamin to fill nutr gaps in the setting of prolonged poor PO. P: Provide Dysphagia Diet as prescribed Nutrition education not indicated. Nutr to provide Chobani yogurts on all trays. CTM %PO, wt changes, labs RD follow up by 02/05 Mirtha Cortez, Healthcare Liaison * Apolinar Diallo MD - 02/05/2024 0837 EDT IM Hospitalist Progress Note Service Date: 02/05/24 Admit Date: 02/04/2024 11:38 Hospital Day: 0 Chief Complaint: Sprain of left ankle, unspecified ligament, initial encounter 24 Hour Events: Admitted S: Feels like her L ankle pain is well controlled. Had an episode of vomiting with some bloody streaks this AM. Her sister at bedside said she last vomited about 2 weeks ago. Patient says she has intermittently had bowel movements with bloody streaks as well. Patient says she hasn't had a bowel movement in 8 days, but her sister thinks only 3. Has not had much of an appetite. O: BP (!) 143/95 (BP Cuff Location: Right arm, BP Patient Position: Semi fowlers) Pulse 78 Temp 36.4 ??C (97.6 ??F) (Oral) Resp 16 Ht 170.2 cm (67) Wt 83.8 kg (184 lb 12.8 oz) SpO2 95% BMI 28.94 kg/m?? Gen: NAD, awake, conversant Eyes: anicteric CV: RRR, no murmurs Pulm: CTA bilaterally, no wheezes Abd: soft, NTTP, +BS Ext: no rashes, no edema, L ankle with some ecchymosis, mildly tender, ROM intact Psych: appropriate mood and affect Meds reviewed: Current Facility-Administered Medications: acetaminophen (TYLENOL) tablet 975 mg, 975 mg, Q8H PRN apixaban (ELIQUIS) tablet 2.5 mg, 2.5 mg, BID aspirin EC tablet 81 mg, 81 mg, DAILY bisacodyL (DULCOLAX) EC tablet 10 mg, 10 mg, DAILY buPROPion (WELLBUTRIN SR) SR tablet 100 mg, 100 mg, BID calcium carbonate (TUMS) tablet 500 mg (200 mg elemental calcium) 2 Tablet, 2 Tablet, Q6H PRN lidocaine (PF) 10 mg/mL (1 %) injection 2 mg, 2 mg, PRN melatonin tablet 9 mg, 9 mg, QHS methocarbamoL (ROBAXIN) tablet 500 mg, 500 mg, BID metoclopramide HCl (REGLAN) tablet 5 mg, 5 mg, TID AC OLANZapine (ZYPREXA) tablet 20 mg, 20 mg, QHS pantoprazole (PROTONIX) tablet 40 mg, 40 mg, DAILY BEFORE BREAKFAST polyethylene glycol 3350 (MIRALAX) packet 17 g, 17 g, Daily PRN Prazosin (MINIPRESS) capsule 1 mg, 1 mg, QHS pregabalin (LYRICA) capsule 100 mg, 100 mg, BID propRANolol (INDERAL) tablet 10 mg, 10 mg, TID PRN ramelteon (ROZEREM) tablet 8 mg, 8 mg, AT BEDTIME PRN senna (SENOKOT) tablet 2 Tablet, 2 Tablet, AT BEDTIME PRN Labs reviewed: CBC: Recent Labs 02/04/24 1243 WBC 4.30 RBC 3.95 HGB 13.6 HCT 39.1 MCV 99* MCH 34.4* MCHC 34.8 PLT 140* NEUTROABS 2.81 BMP: Recent Labs 02/04/24 1330 NA 135* K 4.5 CL 107 CO2 25 BUN 8* CREATININE 0.60 CALCIUM 8.5 LABALBU 3.1* Coags: No results for input(s): PROTIME, INR, PTT in the last 72 hours. LFT: Recent Labs 02/04/24 1330 TBIL 0.9 ALKPHOS 89 AST 34 ALT 28 ABG: No results for input(s): PHISTAT, PCOISTAT, POISTAT, POCTCO2, T7TQCANX, POCFIO2 in the last 72 hours. Cardiac Markers: No results for input(s): CK, MB, CKMBINDEX, TROPONINI in the last 72 hours. Prealbumin: No results for input(s): PREALBUMIN in the last 72 hours. Inflammatory Markers: No results for input(s): SEDRATE, CRP in the last 72 hours. Anemia Markers: Recent Labs 02/04/24 1330 [id number] 193* Autoimmunity: No results for input(s): RF, HERRERA, ANCA in the last 72 hours. Immunoglobulins: No results for input(s): IGG, IGA, IGM, IGE in the last 72 hours. Hemoglobin A1c: No results for input(s): HGBA1C in the last 72 hours. Glucose: No results for input(s): GLUCOSEFINGE in the last 72 hours. Thyroid Function: No results for input(s): TSH, FREET4 in the last 72 hours. No results for input(s): TSH in the last 72 hours. Incorrect component name entered: FREET Prealbumin: No results for input(s): PREALBUMIN in the last 72 hours. Inflammatory Markers: No results for input(s): SEDRATE, CRP in the last 72 hours. Anemia Markers: Recent Labs 02/04/24 1330 [id number] 193* Autoimmunity: No results for input(s): RF, HERRERA, ANCA in the last 72 hours. Imaging reviewed: XR ANKLE LEFT 3 OR MORE VIEWS Result Date: 02/04/2024 Tiny avulsion fractures, as discussed. Medial malleolar and distal talar avulsion fractures are newcompared to 2019. [id number] CT HEAD WO CONTRAST Result Date: 02/04/2024 No acute abnormality. [id number] CT ABDOMEN PELVIS W CONTRAST Result Date: 01/29/2024 No acute abnormality. THIS DOCUMENT HAS BEEN ELECTRONICALLY SIGNED BY ELIZABETH WHITTEN MD FOR ANY QUESTIONS OR CONCERNS REGARDING THIS REPORT PLEASE CALL [facility] AT [phone] XR CHEST 2 VIEWS Result Date: 01/29/2024 No acute findings. THIS DOCUMENT HAS BEEN ELECTRONICALLY SIGNED BY ELIZABETH WHITTEN MD FOR ANY QUESTIONSOR CONCERNS REGARDING THIS REPORT PLEASE CALL [facility] AT [phone] CT HEAD WO CONTRAST Result Date: 01/29/[address] Nothing acute. THIS DOCUMENT HAS BEEN ELECTRONICALLY SIGNED BY RAQUEL HOPKINS MD FOR ANY QUESTIONS OR CONCERNS REGARDING THIS REPORT PLEASE CALL [facility] AT [phone] A/P: Ynes White is a 54 year old female with chronic low back pain, prior L cerebral venous thrombosis c/b L hemispheric intracerebral hemorrhage c/b focal onset seizures hemorrhagic stroke with residual neurogenic bladder and L- sided sensory changes, provoked PE on low dose apixaban for secondary prevention, and memory disorder with legal guardianship (sister), who presented with L ankle pain after a fall. Found to have 2 small avulsion fractures of her L ankle, now working on pain control and PT recommends ABDIAZIZ. Course c/b hypomagnesemia thought to be related to intermittent vomiting. L ankle pain related to small avulsion fractures x2 in setting of recurrent falls -Walking boot or shoe -PT recommends ABDIAZIZ -WBAT -F/u Orthopedic Surgery outpatient -Fall precautions -Tylenol 1g q8h prn, WASH AND GREASER robaxin, WASH AND GREASER pregabalin Hypomagnesemia thought to be related to intermittent vomiting: Mentioned some blood streaks in vomit, though unclear if this was truly blood as Hgb has been stable, but is on apixaban. -Replenish -Mg, BMP daily -Check EKG -PO zofran prn -Check CBC tomorrow AM Macrocytosis with new vitamin B12 deficiency in setting of poor balance: Unclear if B12 deficiency is related to dietary intake or PPI use, but otherwise no other contributing medication or GI condition known to be contributing. -Add on folate, MMA, homocysteine -Consider measuring intrinsic factor if she becomes anemic -Start PO vitamin B12 1000 mcg daily -Recheck CBC outpatient in 4-8 weeks to check response -Continue WASH AND GREASER PPI Mild hyponatremia -Trend BMP Chronic conditions: Prior cerebral venous sinus thrombosis and provoked PE: WASH AND GREASER apixaban, WASH AND GREASER ASA Chronic pain- WASH AND GREASER pregabalin as above, WASH AND GREASER methocarbamol as above Mood- WASH AND GREASER Wellbutrin, WASH AND GREASER Zyprexa, WASH AND GREASER prazosin, WASH AND GREASER propranolol prn anxiety or tremor GERD- WASH AND GREASER PPI VTE ppx: WASH AND GREASER apixaban Telemetry: No IVF: No Reyes: No Dispo: Ideally ABDIAZIZ, not medically ready I spent more than 50 minutes in clinical time solely dedicated to caring for this patient today. Time spent in review of the medical chart, review of labs, review of imaging, examining and evaluatingthe patient, counseling, discussion with consultants, treatment planning, placing orders, disease counseling, discharge planning, and coordination of care. This excludes time reported with other services. Apolinar Diallo MD Internal Medicine Hospitalist 02/05/24 8:37 * Caren Gorman - 02/04/20241945 EDT has placed this patient on a ABDIAZIZ list. However, patient is observation and has no payment sourcefor rehab, unless she pays privately or becomes inpatient for medical reasons. * Antonieta Roberson RN - 02/04/2024 1850 EDT FOUR EYES SKIN ASSESSMENT Four Eyes skin assessment was performed on admission to the unit by Antonieta Roberson RN and andrew BALTAZAR Patient has the following devices at the time of this assessment: Peripheral IV.; L ankle boot Device related pressure injury present? No Patient declined to have this nurse remove boot to LLE and visualize the skin underneath. Areas of concern: Fill in detail for areas of concern [] Occiput [] Nose [] Ear [] Lip [] Scapula [] Spinous process [] Shoulder [] Elbow [] Iliac crest [] Sacrum/coccyx [] Ischial tuberosity [] Trochanter [] Knee [] Malleolus [] Heel [] Toe [x] Other: Small abraision behind R ankle; scattered small bruises on bilateral lower extremities. Last Teja Score: 17 Instructions: Add LDA for any identified wounds Add Coleridge image for any suspected PI or non surgical wounds Order wound consult if suspected PI identified If Teja is < or = to 16, initiate Pressure Injury Prevention Bundle ([id number]). 02/04/2024 18:50 * Nando Sewell LPN - 02/04/2024 1749 EDT Ynes White admitted with Left Ankle Sprain from the ED to via via cart/stretcher. Patient arrives in good condition. Patient assisted x 2 from stretcher to bed. BP 140/90 (BP Cuff Location: Right arm, BP Patient Position: Supine) Pulse 78 Temp 36.3 ??C (97.3 ??F) Resp 20 Ht170.2 cm (67) Wt 83.8 kg (184 lb 12.8 oz) SpO2 98% BMI 28.94 kg/m?? Patient oriented to room, call farris, and items within reach. Second RN Skin Assessment completed with Antonieta Roberson RN. See flowsheets for full patient assessment. NANDO SEWELL LPN * Sridevi Hyatt - 02/04/2024 7304 EDT Initial Case Management/Social Work Assessment and Discharge Plan/Readmission Risk Assessment REASON FOR ADMISSION: Acute left ankle pain Patient understands reason for admission: Yes (Guardian at bedside) PATIENT INFO VERIFIED: PCP, Address, Contact Info Type of housing (single family, condo, apartment, snf, single room occupancy, [facility] funded hotel room, group jail) - apartment Who does the patient live with? alone Does the patient have access to their own bedroom/bathroom/kitchen - or is it shared with others? own Name of housing complex (ex [facility], [facility], etc)- [place] [facility] Housing Authority/Managing Organization - [address] Community Care Providers (assistant case manager, [facility] nurse, etc) name and contact information- [facility]- Edith Reynolds LIVING ARRANGEMENTS AND ACCESSIBILITY ISSUES: Living Arrangements: Alone, Family members, Apartment Levels: 1 Stairs to enter: 0 Handicap access: (Fully accessible handicap apartment) Bathroom located on bedroom level?: Yes What in home social supports are available to the patient? Family member(s), Therapist, Friends / neighbors Is 24/7 care available? No ADVANCED DIRECTIVES, POA &/or COLST IN PLACE: Healthcare Directive: Yes, patient has advance directive for healthcare treatment Type of Healthcare Directive: Other (Comment) (COLST) Copy in Chart: Yes, new copy in paper chart @ [facility] DIRECTIVES FOR FINANCES: TRANSPORTATION: Transportation: (TBD) CULTURAL, RESTORATIONISM and/or LANGUAGE factors affecting health care/discharge planning: [...] Health Services: Home PT/OT DME Provider: Pharmacy: [id number] [address] [facility] [facility] [address] [facility] [address] [address] [facility] [place] [facility] [address] [facility] [address] [place] [id number] [id number] [place], [place] - [address] [facility] [address] [facility] [address] [phone] Home Health: [facility] Other: [facility], Mental Health Services (Claus Meadows/[facility] therapist via zoom) [facility] [...] onto bed. PT resides alone in her firstfloor handicap accessible apt. Has a wheelchair, walker and shower chair, grab bars. She receives PT/OT from [facility] currently. Her sister Stacey Messina visits every 3-4 days and provides meals. Pt is enrolled in [facility] -Edith Reynolds is the [facility] contact, and pt has a therapist via [facility]. Pt has a history of previous rehab stay at [facility] where she had a 3 month stay. Currently pt is in the process of re-application for medicaid, after recently transitioning to Medicare A/B as her primary insurance. Sister/Lucille/guardian advised they applied over a month ago but still haven't not heard back. Spoke with PFS/Sabrina who advised this cannot be expedited, that [...] advised they have no ability to support / care at this time. Confirmed all demographics/PCP and pharmacy as correct. COLST on file from 2021. Sister Lucille guardian. SRIDEVI HYATT 02/04/2024 15:48 * Aníbal Gee, PT - 02/04/2024 1521 EDT [facility] Physical Therapy Initial Evaluation Note Date of Service: 02/04/2024 Diagnosis: Acute L ankle pain after fall Date of Onset: 02/04/24 Referring Provider: Roe Griggs Reason for Referral: Evaluate and treat Precautions: WBAT in walking boot L LEBones: * Tiny avulsion fracture fragment along the dorsal distal talus, age- indeterminate but new comparedto 2019. * Possible acute tiny medial malleolar avulsion fracture fragment. * Old healed distal fibular fracture also noted. * Suspect old healed distal tibial plafond fracture. Ankle mortise appears grossly congruent. SUBJECTIVE: Subjective Statements Patient is currently having difficulty with: mobility, activity tolerance, transfers/gait Patient/caregiver states: I am afraid. I just can't move without falling. Patient/Caregiver Goals Patient and Caregiver Goals: Improve strength to be able to:, Return to my normal life, Decrease pain, Move around on my own Reporting Person Subjective Information Reported by: Patient Pain Evaluation Pain Location: Ankle, Left Pain Intensity - At Present (Scale 0 - 10): 6 Pain Frequency: Since injury/accident Pain Quality: Aching Pain Aggravating Factors: Movement Pain Alleviating Factors: Rest Pain Comments: Boot provides some relief OBJECTIVE: Patient Profile: Patient is a 54 y.o. female admitted on 02/04/2024 secondary to Acute left ankle pain. The patient lives at [address] [place] [id number] Safety Assessment / Living Environment Home environment: House Basic Home Layout Home layout: One level Entrance Stairs: No entrance stairs Bathroom Accessibility: Accessible, Accessible via wheelchair Bedrooms/Bathrooms: Able to live on main level with bedroom/bathroom Indoor Stairs: No indoor stairs Mobility Equipment Mobility Equipment: Wheelchair Wheelchair Specifics: Manual wheelchair Support Support Person: Siblings Amount of Support: Intermittent Living Arrangement Lives With: Family Living Arrangement Comments: Sisters spread duties including housekeeping and frequent check ins. 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 PAST: The patient has a past medical history of Cerebral venous sinus thrombosis, Exercise involving walking (flat surfaces), History of cranial surgery, History of general anesthesia, Left-sided nontraumatic intracerebral hemorrhage (HCC-CMS) (Statuspost decompressive hemicraniectomy), Memory disorder, Shoulder joint pain (right ), and UTI (urinary tract infection). SURGICAL: The patient has no past surgical history on file. Arousal, Attention, and Cognition: Orientation Level: Oriented to place, Oriented to person Memory: Decreased recall of recent events Problem Solving: Impaired Cardiopulmonary: General Vital Signs Comments: Vital signs were monitored and were within the established parameters Integumentary/Anthropometric: Skin Integrity Integrity: Intact Additional Comments: There were bruises on L dorsum of foot and B Achilles tendon scabs present where shoes may be insulting. Range of Motion and Joint Integrity: Range of Motion: Within normal limits Muscle Performance: Strength, Additional Comments: General strength is 3/5 with reduced sustaining to 10seconds open chained and 2-3seconds closed chain. Sensation, Reflexes, and Nerve Integrity: Sensory Functions: Not evaluated Sensory Function Additional Comments: L fourdrinier machine tender to contact, touch. Neuromotor Function/Development: Neuromotor Function/Development Additional Comments: L sided speed reduced and apraxia observed. Balance, Mobility, and Gait: Mobility General Mobility: Impaired Gait Nonambulatory at baseline. Pivot turning only. Informed Consent: Informed Consent: The patient consented to the Physical Therapy evaluation. The patient agrees to and understands the Physical Therapy treatment plan and goals. Interventions Completed Today: Physical Therapy Today At: Time: 1330 Total Treatment Time (minutes): 59 Timed Code Treatment Minutes: 14 Interventions Included Procedures: Therapeutic activities Therapeutic Activities Minutes: 14 Therapeutic Activities 1: After fitting with walking boot on L LE, supine to sit performed with Zafar. Sit to stand with Zafar for balance assist. On standing B LE collapse buckling back onto stretcherwith MaxA2 support. Patient would have collapsed to floor without guiding assistance. On stretcher,fear of falling persisting and MaxA2 to supine. Scooted up on stretcher with ModA1 Patient Status at the End of the Therapy Session The patient was left in the: bed with the: Call farris in reach Patient/Family Education: Education Topics Activity/Work/Community: Activity modification, Importance of out of bed activity Braces and Equipment: Donning/doffing orthosis, Use of orthotics Recommendations: Discharge recommendations/planning Safety: Fall prevention, Mobility/joint precautions, Weight bearing status Therapy Specific: Role of physical therapy Team Communication Communicated with: Nurse, Physician, mortuary operations manager, Other When: After therapy session, Prior to therapy session ASSESSMENT: The patient presents with a physical therapy diagnosis of: Impaired movement system which is consistent with the medical diagnosis of: L ankle injuries, avulsion fxs, falls at home Ynes is a delightful but stressed 54yr old female who presents after multiple falls in home, most recently when attempting to shower. Patient has been feeling no strength in her LEs and reports fear of falling is constant. She was provided with a walking boot and in attempts to mobilize in ED, she was unable to sustain standing. Collapse of B LEs occurred shortly after standing. With current difficulties, 2person assistance is required. Will follow here in hospital and expect that transitionto ABDIAZIZ will be needed to restore improved I mobility before home return can be expected. The patient's rehabilitation potential is: good The patient has been appropriate for physical therapy services due to: impaired mobility, tranfers. The patient: requires sub-acute rehabilitation as next level of care for multiple therapy disciplines at a lower intensity with the expectation to return to prior level of function/living situation. Short-Term Goals: Time Frame: Duration of hospitalization Goal: I in bed mobility Status: Initiated Goal: Transfers with Zafar Status: Initiated Goal: Pivot turns wheelchair to seat surface with Zafar Status: Initiated Goal: Standing tolerance will be stable for 3-5min duration Status: Initiated Long-Term Goals: Goals: Not Applicable PLAN: Frequency: Daily, Times per week Times Per Week: 5 Intensity: 15-45 minutes Duration: Duration of hospitalization Patient/Family Education: Discharge planning, Family/caregiver education, Patient education, Role of physical therapy/occupational therapy/rehabilitation, Equipment, Recommendations, Safety, Falls Prevention, Instruction in precautions, Symptom management Recommended Discharge Destination: Subacute rehabilitation Recommended Discharge Services Therapy Specific Services: Occupational therapy, Physical therapy Equipment Recommended: To be determined ANÍBAL GEE PT 02/04/2024 15:45 documented in this encounter H&P Notes * Kassandra Ansari MD - 02/04/2024 5783 EDT Hospital Medicine Admission History & Physical Service Date: 02/04/2024 Admit Date: N/A Primary Care Provider: Romario Hairston Chief Complaint: left foot pain Fall Ynes White is a 54 y.o. female with focal epilepsy, chronic low back pain, tremor, history ofcerebral venous sinus thrombosis complicated by hemorrhagic stroke with residual neurogenic bladderand left-sided sensory changes, and memory disorder with legal guardianship (sister) who presents to the [facility] emergency department after mechanical fall at home this morning. Reportedly has had frequent recurrent falls lately. The fall this morning was unwitnessed but it sounds like she was bendingover to reach her foot and lost her balance. Denies associated presyncope, chest pain, shortness ofbreath. On emergency department evaluation, has reassuring labs and vital signs. She is not anemic but she is macrocytic. (Last B12 level on file was 486 in February 2022.) Noncon CT head was without acute findings. Plain film of the left ankle demonstrated tiny avulsion fracture fragment along the dorsal distal talus which was age-indeterminate but new compared to 2019. There was also a possible acute tinymedial malleoli are avulsion fracture fragment. Results reviewed with orthopedics who recommended walking shoe wear boot, weightbearing as tolerated, outpatient orthopedics follow-up for continued nonoperative management. Hospitalist service contacted for admission for pain control and possible plac ement as patient was unable to ambulate on physical therapy assessment twice in the emergency department today. Review of Systems 10 point ROS performed and negative unless otherwise noted above Past Medical History: Diagnosis Date Cerebral venous sinus thrombosis 02/14/2020 Exercise involving walking flat surfaces History of cranial surgery 07/12/2020 History of general anesthesia Left-sided nontraumatic intracerebral hemorrhage (HCC-CMS) 03/02/2020 Status post decompressive hemicraniectomy Memory disorder Shoulder joint pain right UTI (urinary tract infection) History reviewed. No pertinent surgical history. Social History Tobacco Use Smoking status: Every Day Current packs/day: 0.25 Average packs/day: 0.3 packs/day for 15.0 years (3.8 ttl pk-yrs) Types: Cigarettes Smokeless tobacco: Never Substance Use Topics Alcohol use: Yes Alcohol/week: 7.0 standard drinks of alcohol Types: 7 Glasses of wine per week Family History Problem Relation Age of Onset Cancer Mother 72 Liver Cancer Father 79 mesothelioma Cancer Maternal Grandmother 80 Current Outpatient Medications Medication Sig acetaminophen (TYLENOL) 500 mg tablet Take 2 Tabs by mouth every 6 hours. (Patient taking differently: Take 2 Tablets by mouth every 8 hours as needed for Pain.) apixaban (ELIQUIS) 2.5 mg tablet Take 1 Tablet by mouth 2 times daily. aspirin 81 mg EC tablet Take 1 Tablet by mouth daily. bisacodyL (DULCOLAX) 5 mg EC tablet Take 2 Tablets by mouth daily. buPROPion (WELLBUTRIN SR) 200 mg SR tablet Take 1 Tablet by mouth daily. (Patient taking differently: Take 100 mg by mouth 2 times daily.) ibuprofen (MOTRIN) 200 mg tablet Take 2 Tablets by mouth 3 times daily as needed for Pain. melatonin 5 mg tablet Take 2 Tablets by mouth at bedtime. methocarbamoL (ROBAXIN) 500 mg tablet Take 1 Tablet by mouth 2 times daily. metoclopramide HCl (REGLAN) 5 mg tablet Take 1 Tablet by mouth 3 times daily before meals. OLANZapine (ZYPREXA) 20 mg tablet Take 1 Tablet by mouth at bedtime. omeprazole (PRILOSEC) 20 mg capsule TAKE 1 CAPSULE BY MOUTH EVERY DAY 30 MINUTES BEFORE BREAKFAST Prazosin (MINIPRESS) 1 mg capsule Take 1 Capsule by mouth at bedtime. pregabalin (LYRICA) 100 mg capsule Take 1 Capsule by mouth 2 times daily. Daily Max: 200 mg propRANolol (INDERAL) 10 mg tablet TAKE 1 TABLET BY MOUTH EVERY MORNING, 1 TABLET EVERY AFTERNOON AND 2 TABLETS EVERY NIGHT AT BEDTIME NEEDED FOR ANXIETY. (Patient taking differently: Take 1 Tablet by mouth 3 times daily as needed for Other (see admin instruction). TAKE 1 TABLET BY MOUTH EVERY MORNING, 1 TABLET EVERY AFTERNOON AND 2 TABLETS EVERY NIGHT AT BEDTIME NEEDED FOR ANXIETY.) Allergies Allergen Reactions Citalopram Other reaction(s): increased anxiety Duloxetine Other reaction(s): increased anxiety Gabapentin Levetiracetam Anxiety Trazodone Zolpidem Other reaction(s): sleep walking with over 5 mg Objective Vitals Temp: [36.7 ??C (98 ??F)] , Heart Rate: [78 BPM] , Pulse: [78] , Resp: [16] , BP: (127)/(85) , SpO2: [98 %] , Numeric Pain Level (Scale 1-10): 0 Weight: There is no height or weight on file to calculate BMI. Physical Exam Vitals reviewed. Constitutional: General: She is not in acute distress. Appearance: She is not toxic-appearing. HENT: Head: Normocephalic and atraumatic. Mouth/Throat: Mouth: Mucous membranes are moist. Pharynx: Oropharynx is clear. Eyes: Conjunctiva/sclera: Conjunctivae normal. Cardiovascular: Rate and Rhythm: Normal rate and regular rhythm. Pulmonary: Effort: Pulmonary effort is normal. Breath sounds: Normal breath sounds. Abdominal: General: Bowel sounds are normal. There is no distension. Palpations: Abdomen is soft. There is no mass. Tenderness: There is no abdominal tenderness. There is no guarding. Musculoskeletal: General: No deformity. Cervical back: Neck supple. Right lower leg: No edema. Left lower leg: No edema. Comments: Ecchymosis and a small skin tear dorsum left ankle Skin: General: Skin is warm and dry. Findings: No rash. Neurological: General: No focal deficit present. Mental Status: She is alert and oriented to person, place, and time. Comments: Sensation in tact to light touch b/l LEs. Left ankle dorsi/plantar flexion limited by pain but bilateral LE strength appears to be in tact. Psychiatric: Mood and Affect: Mood normal. Behavior: Behavior normal. Labs I have personally reviewed Recent Labs 02/04/24 1243 WBC 4.30 RBC 3.95 HGB 13.6 HCT 39.1 MCV 99* MCH 34.4* MCHC 34.8 PLT 140* NEUTROABS 2.81 Recent Labs 02/04/24 1330 NA 135* K 4.5 CL 107 CO2 25 BUN 8* CREATININE 0.60 CALCIUM 8.5 LABALBU 3.1* Recent Labs 02/04/24 1330 TBIL 0.9 ALKPHOS 89 AST 34 ALT 28 Imaging I have independently visualized images XR ANKLE LEFT 3 OR MORE VIEWS Result Date: 02/04/2024 Tiny avulsion fractures, as discussed. Medial malleolar and distal talar avulsion fractures are newcompared to 2019. [id number] CT HEAD WO CONTRAST Result Date: 02/04/2024 No acute abnormality. [id number] . Assessment Ynes White is a 54 y.o. female with focal epilepsy, chronic low back pain, tremor, history ofcerebral venous sinus thrombosis complicated by hemorrhagic stroke with residual neurogenic bladderand left-sided sensory changes, and memory disorder with legal guardianship (sister) now admitted for pain control, PT, and possible placement due to left ankle pain from small avulsion fractures after a mechanical fall. This is in the setting of frequent recurrent falls at home. Plan # Left ankle pain # Tiny avulsion fractures x 2, new compared to 2019, presumably related to this fall today -- Walking boot or shoe -- Continue physical therapy -- Weightbearing as tolerated -- Outpatient follow-up with orthopedics -- Acetaminophen and WASH AND GREASER Robaxin/Lyrica for pain control # Recurrent falls -- Fall precautions -- PT involved. Appreciate input. May require placement. # Macrocytosis in the setting of poor balance -- Added on vitamin B12 level # Hyponatremia -- Very mild at 135, can be repeated later this admission versus as an outpatient. # History of cerebral venous sinus thrombosis -- Continue WASH AND GREASER Eliquis and baby aspirin # Mood -- Continue WASH AND GREASER Wellbutrin, Zyprexa, prazosin, propranolol as needed (for anxiety or tremor) # Chronic pain -- Continue WASH AND GREASER Lyrica, methocarbamol # GERD -- Continue WASH AND GREASER omeprazole VTE Prophylaxis --WASH AND GREASER apixaban Code: Full Code Discharge Plan --Home with services versus rehab placement. Consults --PT. Admission status Observation admission due to anticipated duration of hospitalization is less than two midnights. Patient warrants hospitalization because left ankle pain Discussed with Dr. Griggs in the emergency department Kassandra Ansari MD 02/04/2024 16:03 documented in this encounter Procedure Notes * Brayan Polk MD - 02/18/2024 1524 EDT [facility] Clinical Neurophysiology Nerve Conduction and Electromyography Report PATIENT NAME: Ynes White PATIENT : 1970 PCP: Romario Hairston DATE OF SERVICE: 02/18/2024 History: Ynes White is a 54 y.o. female currently admitted to [facility] after a fall with left ankle sprainand small avulsion fracture, in the context of what appears about 3 weeks of subacute progressive weakness and imbalance with numbness especially in the legs. LP done today had protein of over 250 with normal cells. She is diffusely weak proximally and distally. Exam: Limbs studied were warmed if necessary with moist heat, and skin temperature of the hands was measured at 33 and feet 31 deg C before starting the study. Motor: Nasal dysarthria, diffuse proximal and distal weakness in the arms and legs, with some intermittentvariability but the weakness does seem persistent. She can get her arms over her head slightly withencouragement, but little strength more distally. Twitch ankle movement, and at 3 to 4-/5 bilateralhip flexion. DTRs: Absent at the knees and right ankle. Left ankle in a boot. 2/4 bilateral BR and 1/4 bilateral triceps Sensation: Absent PP in the legs up to the thighs, preserved in the hands. Electrodiagnostic Findings: Nerve Conduction: - The right ulnar sensory peak latency was prolonged (4.6ms) with normal amplitude. The right ulnarmotor response was normal. The right ulnar F wave was present and normal. -The bilateral radial superficial sensory responses were absent. -The right sural and superficial peroneal sensory responses were absent. The right peroneal and tibial motor responses were normal. The right peroneal and tibial F waves were both mildly prolonged. EMG: -Very subtle active denervation changes were seen in the right tibialis anterior and gastrocnemius,with no ability to voluntarily activate motor units. The right quadriceps was quite at rest with noability to activate motor units. The right deltoid was normal with encouragement. The right biceps and first dorsal interosseous were silent at rest and she was unable to actively recruit any motor units. For waveforms/values/tables of EMG/nerve conduction study please see accompanying scanned document in the scans tab in EMR. 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 -This is a patient I know well, and this weakness is quite out of proportion to her normal, and sheis not typically dysarthric. 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 -Please check SSA/SSB in case of Sjogren's disease, paraneoplastic autoantibody panel on serum, anddemyelinating neuropathy panel on serum (use [facility] order and enter CIDP as the code. Do NOT order the SCRIPT DEVELOPER DEMYELINATING panel which is searchable in [facility]). -Please order CT chest abdomen and pelvis with contrast to look for occult malignancy in case this is a paraneoplastic process. -IgA level normal. Please start IVIG for a total course of 2 g/kg. This would be divided into 0.4 g/kg/day over 5 consecutive days. Preferable to give first dose today. -As this is an unusual variant of a neuromuscular condition I think she would be better served by aneurology service and I have advised transfer to [facility]. This has been discussed with the attending neurologist at [facility] but the official call needs to be made through the transfer center. They do not currently have open beds but she will be transferred as soon as they do and we will continue treating here in the meantime. Brayan Polk MD MDM level moderate. This was separate from any procedures performed at the time of the visit. documented in this encounter Consult Notes * Brayan Polk MD - 02/17/2024 1317 EDTAssociated Order(s): CONSULT NEUROLOGY [facility] Neurology Inpatient Consultation PATIENT NAME: Ynes White PATIENT : 1970 PCP: Romario Hairston CONSULTING PROVIDER: Victorina CRAWFORD DATE OF SERVICE: 02/17/2024 CHIEF COMPLAINT: weakness HISTORY Ynes White is a 54 y.o. female whom I follow as an outpatient for history of left cerebral venous thrombosis causing hemorrhage treated surgically, with resulting left-sided focal epilepsy and right-sided weakness. She has a history of multiple antiepileptic medication failures, family arriving upon pregabalin 100 mg twice daily which has controlled her seizures but led to some weight gain.She is currently admitted to [facility] for a fall with left ankle sprain and small avulsion fractures. It has been noted that she seems diffusely weak and concern has been raised for whether this might barnett autoimmune demyelinating process. She also developed an ileus, and urinary retention. Ileus is improving, but she still has a reyes catheter in place.She has also gotten hypotensive with dizzinessupon standing, and BP recently was measured at 70 systolic. She has been receiving oral anticoagulation for DVT but it has been switched to lovenox in case LP was desired to investigate her weakness. Her sister Lucille said she has had 3 falls recently. The first about 3 weeks ago, with pain in her legs and weakness, and she couldn't feel them. Her arms also started having trouble a few days ago. For as prior to 3 weeks ago she was able to walk around the grocery store on her own, though often using a rolling walker, it was quite a precipitous change from 3 weeks ago until now. At this point she needs assistance with eating even. She had not had any changes in medications, nor any prodromal GI illness. Since admission MRI of the head and cervical spine has been done and did not show any new diagnostic abnormalities. Lucille is now taking care of Ynes largely as her prior partner Ever isno longer in the picture by her perspective for good reason though I do not have the details. Ynes cannot be very specific about how she has been feeling recently she does have some baseline cognitive difficulties, but she does feel weak in the arms and the legs and her legs feel numb. She thinks this has been going on for a few weeks as well. Patient Active Problem List Diagnosis Back pain Chronic low back pain Encounter for insertion or removal of intrauterine contraceptive device Nicotine dependence, unspecified, uncomplicated Perimenopausal Tobacco abuse Left-sided nontraumatic intracerebral hemorrhage (HCC-CMS) Primary hypercoagulable state (HCC-CMS) Focal epilepsy (HCC-CMS) Insomnia due to other mental disorder (CODE) Other specified postprocedural states Paresthesia of skin Procedure and treatment not carried out for other reasons Solitary cyst of right breast Solitary pulmonary nodule Tremor, unspecified Severe protein-calorie malnutrition (HCC-CMS) Neurogenic bladder as late effect of cerebrovascular accident (CVA) Acute left ankle pain [M25.572] Closed avulsion fracture of medial malleolus of left tibia Weakness Sprain of left ankle, unspecified ligament, initial encounter Failure to thrive in adult Closed avulsion fracture of medial malleolus of left tibia, initial encounter Hypomagnesemia Ileus (HCC-CMS) Epigastric pain Right upper quadrant abdominal pain Hyponatremia Banner syndrome ALLERGIES Allergies Allergen Reactions Citalopram Other reaction(s): increased anxiety Duloxetine Other reaction(s): increased anxiety Gabapentin Levetiracetam Anxiety Trazodone Zolpidem Other reaction(s): sleep walking with over 5 mg CURRENT MEDICATIONS Current Facility-Administered Medications Medication Dose Route Frequency Provider Last Rate Last Admin acetaminophen (TYLENOL) tablet 650 mg 650 mg oral TID Grupp, Noreen A, RESORT MANAGER 650 mg at 02/17/24 0940 alteplase (CATHFLO ACTIVASE) injection 2 mg 2 mg intercatheter PRN Greg Chavez MD aluminum & magnesium hydroxide-simethicone (MAALOX PLUS) 200-200-20 mg/5 mL suspension 30 mL 30mL oral Q6H PRN Joyce Argueta MD bisacodyL (DULCOLAX) suppository 10 mg 10 mg rectal DAILY Grupp, Noreen A, RESORT MANAGER buPROPion (WELLBUTRIN SR) SR tablet 100 mg 100 mg oral BID Kassandra Ansari MD 100 mg at 02/17/24 0941 calcium carbonate (TUMS) tablet 500 mg (200 mg elemental calcium) 2 Tablet 2 Tablet oral Q6H PRN Kassandra Ansari MD carbamide peroxide (DEBROX) 6.5 % otic solution 5 Drop 5 Drop both ears QID PRN Joyce Argueta MD 5 Drop at 02/08/24 1802 cefTRIAXone (ROCEPHIN) 1,000 mg in sodium chloride (NS MBP) 50 mL IVPB 1,000 mg intravenous DAILY Grupp, Noreen A, RESORT MANAGER 1,000 mg at 02/17/24 0939 cyanocobalamin (VITAMIN B-12) tablet 1,000 mcg 1,000 mcg oral DAILY Grupp, Noreen A, RESORT MANAGER 1,000 mcg at 02/17/24 0941 [START ON 02/23/2024] cyanocobalamin (VITAMIN B12) injection 1,000 mcg 1,000 mcg intramuscular WEEKLY Grupp, Noreen A, RESORT MANAGER enoxaparin (LOVENOX) injection 80 mg 1 mg/kg subcutaneous Q12H Grupp, Noreen A, RESORT MANAGER 80 mg at 02/17/24 0959 folic acid (FOLVITE) tablet 1 mg 1 mg oral DAILY Grupp, Noreen A, RESORT MANAGER 1 mg at 02/17/24 0941 lactulose retention enema (200 gm/300 mL lactulose + 700 mL tap water) 200 g 200 g rectal BID PRN Grupp, Noreen A, RESORT MANAGER lidocaine (GLYDO/URO-JET) 2 % jelly in applicator topical PRN Greg Chavez MD lidocaine (PF) 10 mg/mL (1 %) injection 2 mg 2 mg intradermal PRN Kassandra Ansari MD lidocaine (PF) 10 mg/mL (1 %) injection 5 mg 5 mg intradermal PRN Greg Chavez MD magnesium oxide (MAG-OX) tablet 400 mg 400 mg oral BID Grupp, Noreen A, RESORT MANAGER 400 mg at 02/17/24 0941 melatonin tablet 9 mg 9 mg oral QHS Kassandra Ansari MD 9 mg at 02/16/242023 methocarbamoL (ROBAXIN) tablet 500 mg 500 mg oral QID Apolinar Diallo MD 500 mg at 02/17/24 1150 metoclopramide HCl (REGLAN) tablet 5 mg 5 mg oral TID AC Kassandra Ansari MD 5 mg at 02/17/24 115 OLANZapine (ZYPREXA) tablet 20 mg 20 mg oral QHS Kassandra Ansari MD 20 mg at 02/16/242023 ondansetron (ZOFRAN-ODT) disintegrating tablet 4 mg 4 mg oral Q4H PRN Apolinar Diallo MD 4 mg at 02/11/242109 Or ondansetron (PF) (ZOFRAN) injection 4 mg 4 mg intravenous Q4H PRN Apolinar Diallo MD 4 mg at 02/12/2430 pantoprazole (PROTONIX) injection 40 mg 40 mg intravenous DAILY Joyce Argueta MD 40 mg at 02/17/24 0939 polyethylene glycol 3350 (MIRALAX) packet 17 g 17 g oral DAILY Rosalind Atkins MD 17 g at 02/14/24 0845 Prazosin (MINIPRESS) capsule 1 mg 1 mg oral QHS Kassandra Ansari MD 1 mg at 02/16/242022 pregabalin (LYRICA) capsule 100 mg 100 mg oral BID Kassandra Ansari MD 100 mg at 02/17/24 0940 propRANolol (INDERAL LA) SR capsule 60 mg 60 mg oral DAILY Noreen Montez FNP 60 mg at 02/17/24 0940 propRANolol (INDERAL) tablet 10 mg 10 mg oral TID PRN Kassandra Ansari MD 10 mg at 02/14/24 143 ramelteon (ROZEREM) tablet 8 mg 8 mg oral AT BEDTIME PRN Kassandra Ansari MD 8 mg at 02/04/242009 senna (SENOKOT) tablet 2 Tablet 2 Tablet oral QHS Rosalind Atkins MD 2 Tablet at 02/16/242023 PHYSICAL EXAMINATION BP 116/86 (BP Cuff Location: Left arm, BP Patient Position: Sitting) Pulse 80 Temp 36.4 ??C (97.6 ??F) (Oral) Resp 16 Ht 170.2 cm (67) Wt 79.5 kg (175 lb 4 oz) SpO2 96% BMI 27.45 kg/m?? Alert, makes good eye contact, moderate recall of recent and remote events, moderate dysarthria though speech is fluent. Diffuse weakness with some variability, though does seem consistently to involve upper and lower extremities both proximally and distally, though unable to test left ankle function due to boot in place. Areflexic at the bilateral knees and the right ankle. 2/4 bilateral brachioradialis and triceps. Initially she does not feel pinch in the lower legs but does feel it in the arms, but upon reexamination with a heart or pinch in the lower legs she does feel it. LABORATORY DATA: [id number] is B1 Lab Results Component Value Date [id number] 02/16/2024 TSH 3.54 02/14/2024 HGBA1C 5.4 02/14/2020 Lab Results Component Value Date CRP 26.1 (H) 02/13/2024 Lab Results Component Value Date HERRERA Negative 03/08/2022 ANCA Negative 03/08/2022 SSAA 5.6 03/08/2022 SSBA 1.4 03/08/2022 Lab Results Component Value Date CPK 44 08/01/2020 CK <25 (L) 02/14/2024 Lab Results Component Value Date WBC 4.53 02/14/2024 RBC 3.56 (L) 02/14/2024 HGB 12.3 02/14/2024 SPHCT 34.9 09/18/2021 MCV 99 (H) 02/14/2024 MCHC 34.9 02/14/2024 RDW 15.6 09/18/2021 PLT 150 02/14/2024 LY% 43.4 (H) 09/18/2021 MO% 5.5 09/18/2021 EOS% 0 09/18/2021 BA% 0 09/18/2021 ANC1 2.4 09/18/2021 LY#1 2.1 09/18/2021 MO#1 0.3 09/18/2021 EO#1 0 (L) 09/18/2021 Lab Results Component Value Date NA 131 (L) 02/17/2024 K 4.1 02/17/2024 CL 105 02/17/2024 CO2 24 02/17/2024 ANIONGAP 2 (L) 02/17/2024 GLU 99 09/18/2021 BUN 15 02/17/2024 CREATININE 0.53 02/17/2024 CALCGFR 108 02/17/2024 CA 10.4 09/18/2021 PROT 6.1 (L) 09/18/2021 SPEALB 3.6 09/18/2021 BILT 0.5 09/18/2021 TBIL 0.7 02/10/2024 SGOT 28 09/18/2021 AST 21 02/10/2024 SGPT 20 09/18/2021 ALT 24 02/10/2024 APS 267 (H) 09/18/2021 ALKPHOS 125 02/10/2024 LABALBU 2.9 (L) 02/10/2024 NEUROIMAGING STUDIES: MRI head and C spine 02/14/2024 no new changes, no cord stenosis ASSESSMENT: Ynes White is a 54 y.o. female whom I know well for treatment of left hemispheric focal onsetepilepsy, stable from a seizure standpoint finally on pregabalin 100 mg twice daily which has caused her weight gain, though considering all the other medication trials and failures have been satisfied with this. However, she is now admitted for a roughly 3-week development of subacute weakness andnumbness starting in the lower legs and progressing upwards now affecting the arms. CK was checked and was normal. No prodromal illness, though this could represent AIDP variant. RECOMMENDATIONS: -Please ask anesthesia to perform lumbar puncture. Testing should include protein, glucose (with serum glucose also), cell count and differential, VZV, HSV, enterovirus, bacterial stain. Do not need opening or closing pressure. Does not need to be high-volume tap. - please obtain on serum: IgA level, as well as ganglioside antibody panel ([id number]) and [place] virus. -I will try to do EMG tomorrow to look for indication of immune mediated ganglionopathy. Brayan Polk MD I spent a total of 65 minutes on the date of this encounter meeting with the patient and reviewing documentation/coordinating care as described in the above note. * Betito Cool MD - 02/14/2024 1117 EDTAssociated Order(s): CONSULT NEUROLOGY [facility] History Ms. White is a 54-year-old female who neurology was consulted for progressive weakness. She has a past medical history of a left CVST resulting in a left hemispheric intracerebral hemorrhage with resultant remote symptomatic focal epilepsy (maintained on pregabalin 100 mg twice daily), chronic low back pain and tremor. I spoke with the patient's sister (Ms. Chapa) on the telephone. [facility]. Around that time, she was ambulating both independently and with the assistance of a walker. However, she did have some residual weakness on the right side from the aforementioned intracerebral hemorrhage. She was working consistently with home health PT. However, this ended around 3 weeks prior to her admission. Subsequent to that, she had a functional decline with more global weakness. This resulted in 3 mechanical falls. In the setting of these falls, she has been very anxious and hesitant to ambulate independently. Her most recent fall was on February 03 which resulted in a fracture to the left ankle. Ms. Chapa tells me that on occasion, her upper extremities would not work as well. When asked to clarify, she would intermittently have difficulty picking up a spoon or lifting her arm up while drinking a cup of water. However, the symptoms were fluctuant and seemed to come and go. She feels like the upper extremity symptoms that have been apparent during this hospitalization is consistent with what she has previously seen. When asked specifically about any concerns for worsening strength, the sister tells me that she is most concerned about pain in the extremities. However, she does feel like the left hemibody has slightly worsened over the last few weeks which is new. There was no concern for seizure prior to her admission. Examination: BP 139/90 (BP Patient Position: Semi fowlers) Pulse 79 Temp 36.2 ??C (97.2 ??F) Resp 16 Ht 170.2 cm (67) Wt 83.8 kg (184 lb 12.8 oz) SpO2 92% BMI 28.94 kg/m?? Neuromuscular exam: General: AOx3 Speech: Normal Language: Intermittent paraphasic errors. At times effortful. Able to follow most commands appropriately CN II: Visual fam are full to confrontation. CN III, IV, : Extraocular movements intact. CN V: Facial sensation is intact to light touch bilaterally CN VII: Face is symmetric with normal eye closure and smile. CN VII: Hearing is intact to voice. CN IX, X: Palate elevates symmetrically. CN XI: Head turning and shoulder shrug are intact CN XII: Tongue is midline with normal movements and no atrophy. Tone: Normal in the UE and LE Motor: --- At least 3+/5 proximally and distally in the upper extremities --- 4/5 distally in the right lower extremity (left not tested in the setting of her ankle fracture). At least 3/5 in the proximal lower extremities bilaterally (reportedly able to stand with assistance with PT) DTR: R L Biceps C5/6 :areflexic :areflexic Triceps C6/7 :areflexic :areflexic Brachioradialis C5/6 :areflexic :areflexic Knee L3,4 :areflexic :areflexic Ankle S1,2 :areflexic :areflexic Babinski's :negative :negative Sensation: --- Decreased sensory perception to light touch in the lower extremities bilaterally (fluctuant exam) Gait: Non ambulatory Prior Workup: Labs: Imaging: CT Head w/o contrast: No acute abnormality. Assessment: Ms. White is a 54-year-old female who neurology was consulted for progressive weakness. Briefly, speaking with the patient's sister on the telephone, she was walking both independently and with the assistance of a walker when she for started taking care of her in July of 2023. She does have some baseline weakness on the right side from her prior intracerebral hemorrhage. She was doing well up until around 3 to 4 weeks ago when she stopped working with physical therapy due to insurance difficulties. Subsequent to that, she has had more global weakness with 3 resultant mechanical falls. The most recent of these led to the admission on February 03 wherein she suffered a left ankle fracture. Her clinical examination today is fluctuant. She has some expressive aphasia which is likely residual from her prior intracerebral hemorrhage. Her motor examination is difficult to assess due to pooreffort. However, she appears to be at least antigravity in the proximal upper and lower extremities. In addition, she has fairly good distal muscle strength. She is globally areflexic. Her sensory examination is fluctuant but she appears to feel fairly normally on both sides. It is difficult to localize her symptomatology. However, the presence of bilateral upper and lower extremity weakness would localize centrally to the cervical region or above. It may be possible thatedin has a new brain or cervical lesion that resulted in left-sided weakness in the context of her known residual right-sided deficits. Thus, would recommend an MR brain and cervical spine without contrast. A peripheral process like AIDP is felt to be less likely in the context of the history that has been obtained from her sister. However, her absent DTRs and recent diagnosis of ileus (autonomic dysfunction) can be seen in AIDP. Would watch her clinically for now. If she has ongoing progressionof her weakness, please let us know and we can consider further workup/treatment options. Overall, I feel like her presentation is likely a combination of functional decline from deconditioning with overlying anxiety. However, would still obtain an MR brain and cervical spine w/o contrastin the context of the new reports of left sided weakness. Plan: - Obtain an MR brain and cervical spine w/o contrast. Betito Cool MD I spent a total of 60 minutes on the date of this encounter meeting with the patient and reviewing documentation/coordinating care as described in the above note. No procedures were performed at the time of the visit. * Mary Smith RD - 02/12/2024 1511 EDTAssociated Order(s): CONSULT NUTRITION Brief Nutrition Note: Consult received for possible cpn. Discussed with MD, no CPN started today. Per MD note 02/12/24, noted improvement in pt's symptoms today, suspecting pt will be able to start taking p.o. in next 24 hours. If pt improves further today,noted possibility of starting clear liquids this afternoon. Per MD note 02/12/24, if pt remains n.p.o. will need to consider parenteral nutrition. RD to follow for diet advancement vs. initiation of nutrition support. Mary Smith MS, RD, CD. * Elizabeth Ponce MD - 02/09/2024 1607 EDTAssociated Order(s): CONSULT GENERAL SURGERY General Surgery Consult CC - Chief Complaint Patient presents with Fall Pt arrives via EMS who reports 6 falls in last week and hx stroke two years ago. Pt states, my brain wouldn't let me shower today and I fell down reports two falls today. LLE pain HPI: Ynes White is a 54 y.o. female admitted 5 days ago after a fall and left ankle injury. Per report, she was initially on narcotic for pain relief and developed constipation. CT 315 demonstrates large amount of stool in the rectum with some possible surrounding inflammation. MiraLAX and lactulose oral and lactulose enemas have been started with good effect. However patient has become more distended and repeat CT today demonstrated gaseous distention of the entire colon, particularly the cecum at 7 cm. Smooth tapering to the rectum was noted. Patient has significant past medical history including stroke, epilepsy, neurogenic bladder and memory and motor deficits. Denies abdominal surgical history. 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 No pertinent surgical history. Current Facility-Administered Medications Medication Dose Route Frequency Provider Last Rate Last Admin acetaminophen (TYLENOL) tablet 975 mg 975 mg oral Q6H Joyce Argueta MD 975 mg at 02/08/24 1155 aluminum & magnesium hydroxide-simethicone (MAALOX PLUS) 200-200-20 mg/5 mL suspension 30 mL 30mL oral Q6H PRN Joyce Argueta MD apixaban (ELIQUIS) tablet 2.5 mg 2.5 mg oral BID Kassandra Ansari MD 2.5 mg at 02/08/24 0929 aspirin EC tablet 81 mg 81 mg oral DAILY Kassandra Ansari MD 81 mg at 02/07/24 0818 bisacodyL (DULCOLAX) EC tablet 10 mg 10 mg oral DAILY Kassandra Ansari MD 10 mg at 02/07/24 0818 buPROPion (WELLBUTRIN SR) SR tablet 100 mg 100 mg oral BID Kassandra Ansari MD 100 mg at 02/08/24 0929 calcium carbonate (TUMS) tablet 500 mg (200 mg elemental calcium) 2 Tablet 2 Tablet oral Q6H PRN Kassandra Ansari MD carbamide peroxide (DEBROX) 6.5 % otic solution 5 Drop 5 Drop both ears QID PRN Joyce Argueta MD 5 Drop at 02/08/24 180 cyanocobalamin (VITAMIN B-12) tablet 1,000 mcg 1,000 mcg oral DAILY Apolinar Diallo MD 1,000 mcg at 02/08/24 0929 dextrose 5% lactated ringers with KCl 20 mEq infusion intravenous CONTINUOUS Joyce Argueta MD 100 mL/hr at 02/08/24 1530 New Bag at 02/08/24 1530 folic acid (FOLVITE) tablet 1 mg 1 mg oral DAILY Apolinar Diallo MD 1 mg at 02/08/24 0929 HYDROmorphone (PF) (DILAUDID) 0.5 mg/0.5 mL syringe 0.5 mg 0.5 mg intravenous Q3H PRN Joyce Argueta MD 0.5 mg at 02/09/24 1337 ibuprofen (MOTRIN) tablet 600 mg 600 mg oral QID Joyce Argueta MD 600 mg at 02/08/24 1155 lactulose (CHRONULAC) 20 gram/30 mL solution 30 mL 30 mL oral Q4H Joyce Argueta MD 30 mL at02/08/24 1148 lactulose retention enema (200 gm/300 mL lactulose + 700 mL tap water) 200 g 200 g rectal Q4H Joyce Argueta MD 200 g at 02/09/24 1229 lidocaine (PF) 10 mg/mL (1 %) injection 2 mg 2 mg intradermal PRN Kassandra Ansari MD lidocaine (XYLOCAINE) 2 % jelly topical PRN Liss Quigley DO LORazepam (ATIVAN) injection 0.5 mg 0.5 mg intravenous Q4H PRN Joyce Argueta MD melatonin tablet 9 mg 9 mg oral QHS Kassandra Ansari MD 9 mg at 02/07/242027 methocarbamoL (ROBAXIN) tablet 500 mg 500 mg oral QID Apolinar Diallo MD 500 mg at 02/08/24 115 metoclopramide HCl (REGLAN) tablet 5 mg 5 mg oral TID AC Kassandra Ansari MD 5 mg at 02/09/24 115 OLANZapine (ZYPREXA) tablet 20 mg 20 mg oral QHS Kassandra Ansari MD 20 mg at 02/07/242032 ondansetron (ZOFRAN-ODT) disintegrating tablet 4 mg 4 mg oral Q4H PRN Apolinar Diallo MD 4 mg at 02/08/24 0934 Or ondansetron (PF) (ZOFRAN) injection 4 mg 4 mg intravenous Q4H PRN Apolinar Diallo MD 4 mg at 02/08/24 1926 oxyCODONE (ROXICODONE) immediate release tablet 5 mg 5 mg oral Q4H PRN Apolinar Diallo MD 5 mg at 02/08/24 1312 pantoprazole (PROTONIX) injection 40 mg 40 mg intravenous DAILY Joyce Argueta MD 40 mg at 02/09/24 09 polyethylene glycol 3350 (MIRALAX) packet 17 g 17 g oral BID Apolinar Diallo MD 17 g at 02/07/24 0817 potassium chloride (KAYCIEL) 20 mEq/15 mL oral solution 40 mEq 40 mEq oral Now Joyce Argueta MD potassium chloride in water infusion 20 mEq 20 mEq intravenous Now Joyce Argueta MD Prazosin (MINIPRESS) capsule 1 mg 1 mg oral QHS Kassandra Ansari MD 1 mg at 02/07/242030 pregabalin (LYRICA) capsule 100 mg 100 mg oral BID Kassandra Ansari MD 100 mg at 02/08/24 0928 prochlorperazine (COMPAZINE) tablet 5 mg 5 mg oral Q6H PRN Apolinar Diallo MD 5 mg at 02/07/24 1119 propRANolol (INDERAL) tablet 10 mg 10 mg oral TID PRN Kassandra Ansari MD 10 mg at 02/05/24 0859 psyllium husk (with sugar) (METAMUCIL) packet 1 Packet 1 Packet oral DAILY Joyce Argueta MD1 Packet at 02/08/24 1047 ramelteon (ROZEREM) tablet 8 mg 8 mg oral AT BEDTIME PRN Kassandra Ansari MD 8 mg at 02/04/242009 senna (SENOKOT) tablet 2 Tablet 2 Tablet oral BID Apolinar Diallo MD 2 Tablet at 02/08/24 0929 Family History Problem Relation Age of Onset Cancer Mother 72 Liver Cancer Father 79 mesothelioma Cancer Maternal Grandmother 80 Social History Socioeconomic History Marital status: Tobacco Use Smoking status: Every Day Current packs/day: 0.25 Average packs/day: 0.3 packs/day for 15.0 years (3.8 ttl pk-yrs) Types: Cigarettes Smokeless tobacco: Never Vaping Use Vaping Use: Never used Substance and Sexual Activity Alcohol use: Yes Alcohol/week: 7.0 standard drinks of alcohol Types: 7 Glasses of wine per week Drug use: Never Review of Systems A ten point review of systems was performed and was negative except for pertinent positives noted in the HPI O: BP (!) 149/95 Comment: RN Notified Pulse 78 Temp 36.9 ??C (98.4 ??F) (Oral) Resp 16 Ht 170.2 cm (67) Wt 83.8 kg (184 lb 12.8 oz) SpO2 97% BMI 28.94 kg/m?? Physical Examination: General appearance -sleepy, no distress when awakened. Mental status - alert, oriented to person, place, and time Chest - clear to auscultation, no wheezes, rales or rhonchi, symmetric air entry Heart - normal rate and regular rhythm Abdomen -soft, perhaps mildly distended. Nontender. Several small scars on her abdomen. No obvious hernias. Musculoskeletal -notes left lower leg pain Extremities -left ankle walking boot in place Labs: Results for orders placed or performed during the hospital encounter of 02/04/24 (from the past 24 hour(s)) MAGNESIUM Result Value Ref Range Magnesium 1.6 (L) 1.7 - 2.8 mg/dL COMPLETE BLOOD COUNT Result Value Ref Range WBC 6.14 4.00 - 12.40 K/cmm RBC 3.90 3.86 - 5.04 M/cmm Hemoglobin 13.5 11.6 - 15.2 g/dL HCT 38.8 34.9 - 44.4 % MCV 100 (H) 81 - 98 fL MCH 34.6 (H) 26.7 - 33.3 pg MCHC 34.8 32.1 - 35.9 g/dL RDW-CV 17.0 (H) <14.7 % RDW-SD 61.4 (H) <50.4 fl PLT 138 (L) 141 - 377 K/cmm MPV 10.7 9.5 - 12.7 fL C REACTIVE PROTEIN Result Value Ref Range C-Reactive Protein 24.2 (H) <10.0 mg/L COMPREHENSIVE METABOLIC PANEL (CMP) Result Value Ref Range Sodium 140 136 - 145 mmol/L Potassium 3.4 (L) 3.5 - 5.0 mmol/L Chloride 115 (H) 96 - 110 mmol/L CO2 Total 21 (L) 22 - 32 mmol/L Glucose 140 (H) 70 - 99 mg/dl BUN 6 (L) 10 - 26 mg/dL Creatinine 0.53 0.52 - 1.04 mg/dL eGFR 108 >60 mL/min/1.73m2 Total Protein 6.0 (L) 6.3 - 8.2 g/dL Albumin 3.3 (L) 3.4 - 4.9 g/dL Alkaline Phosphatase 151 (H) 38 - 126 U/L AST 22 15 - 46 U/L ALT 27 <35 U/L Bilirubin, Total 0.6 <1.4 mg/dL Calcium 9.2 8.5 - 10.5 mg/dL Albumin/Globulin Ratio 1.2 1.0 - 2.5 Anion Gap 4 (L) 5 - 14 mmol/L Imaging: CT ABDOMEN PELVIS W CONTRAST Result Date: 02/09/2024 PROCEDURE INFORMATION: Exam: CT Abdomen And Pelvis With Contrast Exam date and time: 02/09/2024 11:03 AM Age: 54 years old Clinical indication: Other: Increase in nausea, vomitting, and abd pain TECHNIQUE: Imaging protocol: Computed tomography of the abdomen and pelvis with contrast. Radiation optimization: All CT scans at this facility use at least one of these dose optimization techniques: automated exposure control; mA and/or kV adjustment per patient size (includes targeted exams where dose is matched to clinical indication); or iterative reconstruction. Contrast material: OMNIPAQUE 350; Contrast volume: 100 ml; Contrast route: INTRAVENOUS (IV); COMPARISON: CT ABDOMEN PELVIS W CONTRAST 02/07/2024 6:57 PM FINDINGS: Liver: Fatty infiltration of the liver. Stable small hepatic cysts. Gallbladder and bile ducts: Normal. No calcified stones. No ductal dilation. Pancreas: Normal. No ductal dilation. Spleen: Normal. No splenomegaly. Adrenal glands: Normal. No mass. Kidneys and ureters: Normal. No hydronephrosis. Stomach and bowel: Significantly increased gaseous distension throughout thecolon, with cecum distended to 7 cm. Smooth tapering to the sigmoid colon without focal wall thickening identified. New fluid level in the rectum with continued mild rectal wall thickening and perirectal edema. Appendix: No evidence of appendicitis. Intraperitoneal space: Unremarkable. No free air.No significant fluid collection. Vasculature: Unremarkable. No abdominal aortic aneurysm. Lymph nodes: Unremarkable. No enlarged lymph nodes. Urinary bladder: Unremarkable as visualized. Reproductive: Unremarkable as visualized. Bones/joints: Unremarkable. No acute fracture. Soft tissues: Unremarkable. Other findings: No evidence of perforation or drainable collection. 1. Significantly increased gaseous distension throughout the [...] REGARDING THIS REPORT PLEASE CALL [facility] AT [phone] US ABDOMEN LIMITED Result Date: 02/09/2024 PROCEDURE INFORMATION: Exam: US Abdomen, Limited; Right Upper Quadrant Exam date and time: 02/09/2024 8:25 AM Age: 54 years old Clinical indication: Abnormal findings; Abnormal radiologic finding of the abdomen; Radiologic exam and body structure: CT abd; Additional info: Abd pain, nausea, enlarged gb on CT, elevated alk phos TECHNIQUE: Imaging protocol: Real time ultrasound of the abdomen with image documentation. Limited exam focused on the right upper quadrant. COMPARISON: US ABDOMEN LIMITED 02/15/2020 5:27 PM FINDINGS: Liver: Fatty infiltration. No masses. Gallbladder: Normal. No gallstones. There is no gallbladder wall thickening. Biliary ducts: Not visualized due to bowel gas. Pancreas:Not visualized due to bowel gas. Right kidney: Normal. No mass. No hydronephrosis. Fatty infiltration of the liver. THIS DOCUMENT HAS BEEN ELECTRONICALLY SIGNED BY SRIDEVI DEE MD FOR ANY QUESTIONS OR CONCERNS REGARDING THIS REPORT PLEASE CALL [facility] AT [phone] XR ABDOMEN 1 VIEW Result Date: 02/08/2024 PROCEDURE INFORMATION: Exam: XR Abdomen Exam date and time: 02/08/2024 10:04 PM Age: 54 years old Clinical indication: Bloating and other: Vomiting. ? Ileus TECHNIQUE: Imaging protocol: Radiologic exam of the abdomen. Views: Frontal supine view of the abdomen. 1 View. COMPARISON: CT ABDOMEN PELVIS WCONTRAST 02/07/2024 6:57 PM FINDINGS: Lungs: The visualized portions of the lung bases are unremarkable. Gastrointestinal tract: There is gaseous distension of the colon very little gas and moderate amount of stool is seen within the rectum. Consider distal colonic obstruction or obstipation. There is a nonspecific bowel gas pattern. No evidence of bowel obstruction. Intraperitoneal space: There is no free intraperitoneal air. Organs: The organs are unremarkable. Bones/joints: The spine, sacroiliac joints, and hip joints show no evidence of fracture or other acute processes. Soft tissues: There are no soft tissue masses or calcifications. 1. No acute abdominal process identfied. 2. [...] REGARDING THIS REPORT PLEASE CALL [facility] AT [phone] CT ABDOMEN PELVIS W CONTRAST Result Date: 02/07/2024 PROCEDURE INFORMATION: Exam: CT Abdomen And Pelvis With Contrast Exam date and time: 02/07/2024 6:57PM Age: 54 years old Clinical indication: Abdominal tenderness; Additional info: Nausea, emesis, abd pain TECHNIQUE: Imaging protocol: Computed tomography of the abdomen and pelvis with contrast. Radiation optimization: All CT scans at this facility use at least one of these dose optimization techniques: automated exposure control; mA and/or kV adjustment per patient size (includes targeted examswhere dose is matched to clinical indication); or iterative reconstruction. Contrast material: [id number]; Contrast volume: 100 ml; Contrast route: INTRAVENOUS (IV); COMPARISON: CT ABDOMEN PELVIS W CONTRAST 01/28/2024 11:03 PM FINDINGS: Lungs: There is atelectasis versus scarring in the lung bases bilaterally. There are no pleural effusions. Liver: The liver is stable in appearance, with a couple of tiny benign-appearing cysts noted. Gallbladder and bile ducts: The gallbladder is distended, measuring 4.4 cm. No calcified gallstones are identified. The common bile duct measures 10 mm in diameter, not significantly changed compared with the prior exam. Pancreas: The pancreas is within normal limits. Spleen: The spleen is normal in size. Adrenal glands: The adrenal glands are normal in appearance. Kidneys and ureters: The kidneys are symmetric in size. There is no hydronephrosis. No renal or ureteral calculi are identified. Stomach and bowel: The stomach is not distended. No pathologically dilated small bowel loops are identified. There is no evidence of colonic wall thickening. There is afairly large volume of stool from the transverse colon through the proximal descending colon. Thereis a large volume of desiccated stool in the rectal vault, with mild inflammation noted in the perirectal fat. Appendix: There is a normal appendix in the right lower quadrant. Intraperitoneal space:There is no free air or free fluid in the abdomen or pelvis. Vasculature: The abdominal aorta is normal in caliber. The celiac axis, SMA and KIM are patent. Lymph nodes: No pathologically enlarged lym ph nodes are identified in the abdomen or pelvis. Urinary bladder: The urinary bladder appears normal. Reproductive: The uterus is normal in appearance. No adnexal masses are identified. Bones/joints: There is normal alignment in the visualized portion of the spine. No acute fractures or aggressivebone lesions are appreciated. Soft tissues: The soft tissues are within normal limits. 1. The gallbladder is distended. Consider further assessment with ultrasound if there is right upper quadrant tenderness. 2. Increased stool in the colon. There is a large volume of desiccated stool in the rectal vault with some inflammation noted in the perirectal fat. Consider fecal impaction with associated proctitis. THIS DOCUMENT HAS BEEN ELECTRONICALLY SIGNED BY SOO FAIRBANKS MD FOR ANY QUESTIONS OR CONCERNS REGARDING THIS REPORT PLEASE CALL [facility] AT [phone] XR ABDOMEN 1 VIEW Result Date: 02/07/2024 XR ABDOMEN 1 VIEW Signs and Symptoms/Comments: Nausea, vomiting, abd pain; Comparison: [facility] on 03/07/2022. CT abdomen pelvis on 01/28/2024. FINDINGS: Abdomen: Supine AP view(s). Bowel: Mild gaseous distention of a few loops of small and large bowel. Moderate amount of well-formed stool in the rectum. Calcifications: Scattered vascular calcifications. Bones: Unremarkable. Mild gaseous distention of a few loops of small and large bowel. Nonspecific, but may reflect mild ileus. CT recommended. [id number] XR ANKLE LEFT 3 OR MORE VIEWS Result Date: 02/04/2024 XR ANKLE LEFT 3 OR MORE VIEWS Signs and Symptoms/Comments: fall, left ankle bruising and pain; Comparison: 06/09/2019, 03/30/2019, 12/22/2018. FINDINGS: Left ankle: 3 views. Bones: * Tiny avulsion fracture fragment along the dorsal distal talus, age-indeterminate but new compared to 2019. * Possible acute tiny medial malleolar avulsion fracture fragment. * Old healed distal fibular fracture also noted. * Suspect old healed distal tibial plafond fracture. * Ankle mortise appears grossly congruent. Degenerative changes: Mild ankle and hindfoot arthrosis. Soft tissues: Mild soft tissue swelling. Tiny avulsion fractures, as discussed. Medial malleolar and distal talar avulsion fractures are newcompared to 2019. [id number] CT HEAD WO CONTRAST Result Date: 02/04/2024 INDICATION: fall, anticoagulated, prior hemorrhagic stroke;. COMPARISON: Head CT 01/28/2024. TECHNIQUE: Noncontrast CT scan of the head was performed. Axial images and multiplanar reformations were reviewed. FINDINGS: Brain: Left temporal and parietal chronic encephalomalacia, unchanged. No intracranial hemorrhage or mass effect. No acute stroke. Ventricles: Ex vacuo dilatation of the left lateral v entricle, unchanged. Paranasal Sinuses and Mastoids: The paranasal sinuses and mastoid air unremarkable as visualized. Orbits: The ocular globes and retro- orbital fat are normal as visualized.. Bones: Left craniotomy defect, unchanged. No acute fracture. Soft tissues: The scalp and visualized facial soft tissues have normal appearances. No acute abnormality. [id number] CT ABDOMEN PELVIS W CONTRAST Result Date: 01/29/2024 PROCEDURE INFORMATION: Exam: CT Abdomen And Pelvis With Contrast Exam date and time: 01/28/2024 11:03PM Age: 54 years old Clinical indication: Other: Right sided abdominal pain TECHNIQUE: Imaging protocol: Computed tomography of the abdomen and pelvis with contrast. Radiation optimization: All CT scans at this facility use at least one of these dose optimization techniques: automated exposure contr ol; mA and/or kV adjustment per patient size (includes targeted exams where dose is matched to clinical indication); or iterative reconstruction. Contrast material: OMNI 350; Contrast volume: 100 ml;Contrast route: INTRAVENOUS (IV); COMPARISON: CT ABDOMEN PELVIS [...] significant fluid collection. Vasculature: Unremarkable. No abdominal aorticaneurysm. Lymph nodes: Unremarkable. No enlarged lymph nodes. Urinary bladder: Unremarkable as visua lized. Reproductive: Unremarkable as visualized. Bones/joints: Unremarkable. No acute fracture. Soft tissues: Unremarkable. No acute abnormality. THIS DOCUMENT HAS BEEN ELECTRONICALLY SIGNED BY ELIZABETH WHITTEN MD FOR ANY QUESTIONS OR CONCERNS REGARDING THIS REPORT PLEASE CALL [facility] AT [phone] XR CHEST 2 VIEWS Result Date: 01/29/2024 PROCEDURE INFORMATION: Exam: XR Chest Exam date and time: 01/28/2024 10:51 PM Age: 54 years old Clinical indication: Other: Falls, weakness TECHNIQUE: Imaging protocol: Radiologic exam of the chest. Views: 2 views. COMPARISON: CT CHEST WITHOUT CONTRAST 08/11/2021 2:43 PM FINDINGS: Lungs: Unremarkable.No consolidation. Pleural spaces: Unremarkable. No pleural effusion. No pneumothorax. Heart/Mediastinum: Unremarkable. No cardiomegaly. Bones/joints: Unremarkable. No acute findings. THIS DOCUMENT HAS BEEN ELECTRONICALLY SIGNED BY ELIZABETH WHITTEN MD FOR ANY QUESTIONSOR CONCERNS REGARDING THIS REPORT PLEASE CALL [facility] AT [phone] CT HEAD WO CONTRAST Result Date: 01/29/2024 PROCEDURE INFORMATION: Exam: CT Head Without Contrast Exam date and time: 01/28/2024 10:46 PM Age: 54years old Clinical indication: Other: Fall, weakness; Prior surgery; Surgery date: 6+ months; Surgery type: PT not sure what kind of brain surgery she had HX tbi TECHNIQUE: Imaging protocol: Computedtomography of the head without contrast. Total images: 274 Radiation optimization: All CT scans at this facility use at least one of these dose optimization techniques: automated exposure control; mAand/or kV adjustment per patient size (includes targeted exams where dose is matched to clinical indication); or iterative reconstruction. COMPARISON: CT HEAD WO CONTRAST 07/31/2022 7:05 PM FINDINGS: Br ain: Chronic encephalomalacia left temporoparietal region. No hemorrhage or mass effect.No edema. Cerebral ventricles: Ex vacuo dilatation left lateral ventricle. Paranasal sinuses: Minimal mucosal thickening left maxillary sinus. Mastoid air cells: Mastoid air cells are clear. Bones/joints: Left craniotomy. Soft tissues: Unremarkable. Stable head CT. Nothing acute. THIS DOCUMENT HAS BEEN ELECTRONICALLY SIGNED BY RAQUEL HOPKINS MD FOR ANY QUESTIONS OR CONCERNS REGARDING THIS REPORT PLEASE CALL [facility] AT [phone] Assessment: 54 y.o. female presenting after fall and left ankle injury resulting in significant immobility and narcotic administration. Constipation improved on today's CT versus 02/06, but now significant gaseous distention of the colon. No obvious obstruction. Patient is at some risk of Banner's type pseudoobstruction. If distention worsens, then could consider neostigmine. For now, recommend aggressive conservative management. No indication for surgery at present, but will follow to confirm resolution. Plan: Continue current GI regimen. N.p.o., IV fluids and electrolyte correction as needed. Discontinue or at least minimize constipating medications such as narcotics etc. Mobilize patient with frequent position changes in bed and maximize out of bed to chair and ambulation with assist as able. Elizabeth Ponce MD 02/09/2024 16:07 documented in this encounter ED Notes * Joyce Hess RN - 02/04/2024 1231 EDT Blood drawn via saline lock per protocol, blue, green, purple, and yellow tube(s) sent to lab per order. * Roe Griggs MD - 02/04/2024 1138 EDT Emergency Department Visit Medical Decision Making Medical Decision Making 54-year-old female presents for evaluation of traumatic left ankle pain after falling while trying to transfer into the shower today. She says that she has been increasingly weak over the last couple of weeks has been taking multiplefalls. Seen by myself in this emergency department about a week ago. She lives by herself but receives a lot of support from her sister. However, did fall while she waswith her sister today. There is no objective evidence of any trauma other than bruising and abrasion to the left ankle. Nohead trauma noted. However, given her anticoagulation status will repeat head CT. Lab work obtained and is relatively reassuring. X-ray of the ankle showing possible tiny avulsion fracture. Given her weakness and gradual decline I do not think she is safe to go home by herself. Admitted to hospitalist medicine service after physical therapy evaluation for further evaluation and management and consideration of placement. Problems Addressed: Closed avulsion fracture of medial malleolus of left tibia, initial encounter: complicated acute illness or injury Failure to thrive in adult: complicated acute illness or injury Sprain of left ankle, unspecified ligament, initial encounter: complicated acute illness or injury Weakness: complicated acute illness or injury Amount and/or Complexity of Data Reviewed Radiology: ordered. Risk OTC drugs. Decision regarding hospitalization. Final diagnoses: Sprain of left ankle, unspecified ligament, initial encounter Weakness Failure to thrive in adult Closed avulsion fracture of medial malleolus of left tibia, initial encounter Disposition: Admitted Chief complaint: 6 falls in the last week HPI Ynes White is a 54 y.o. 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 On Eliquis 2.5 mg twice daily Seen by myself last week and at that time workup was largely unremarkable with exception of low potassium requiring oral repletion. CT head was negative for any acute pathology. CT abdomen and pelvisdid not show any acute pathology either. She was discharged with her sister at that point in time. Today, she states that she took 2 falls in the bathroom today. Her sister was visiting and trying to help her. She was in the bathroom on her wheelchair. States that she was trying to stand and pivot to get out of the wheelchair to into the shower when she fell. She is not sure if she struck her head but she injured her left ankle. Does not believe she lost consciousness. No vomiting. No significant headache. Sister provides collateral history and says that over the last couple of weeks she has seemed to decline. Eating and drinking less. More and more weak. She has occupational therapy and physical therapy but only once a week. No home health nursing currently. When her sister is not around she is at home by herself. Sister lives separately. No recent infectious symptoms such as fevers or chills. She describes a sensation of significant nausea when eating and believes that this is contributing to her decreased intake. No reported abdominal pain. Per medication list review, sedating medications include: She is on olanzapine 20 mg nightly Dronabinol before lunch and dinner Tizanidine 2 mg daily Pregabalin 100 mg twice daily Metoclopramide 5 mg 3 times daily History was provided by: Patient and sister Records reviewed include: Most recent discharge summary detailing admission for failure to thrive Patient's pertinent PMH, FH, SH were reviewed and edited as necessary. Nursing notes reviewed. A medical screening exam was performed. Physical Exam BP (!) 146/95 (BP Cuff Location: Right arm, BP Patient Position: Semi fowlers) Pulse 78 Temp 36.6 ??C (97.8 ??F) (Oral) Resp 16 Ht 170.2 cm (67) Wt 83.8 kg (184 lb 12.8 oz) SpO2 96% BMI 28.94 kg/m?? Physical Exam Vitals and nursing note reviewed. Constitutional: General: She is not in acute distress. Appearance: She is well-developed. HENT: Head: Normocephalic and atraumatic. Neck: Trachea: No tracheal deviation. Cardiovascular: Rate and Rhythm: Normal rate. Pulmonary: Effort: Pulmonary effort is normal. No respiratory distress. Abdominal: General: There is no distension. Musculoskeletal: General: Normal range of motion. Cervical back: Normal range of motion. Comments: Bruising and abrasions to the left ankle anteriorly. He is able to tolerate flexion and extension of the ankle without significant pain. However, there is tenderness to palpation somewhat diffusely about the ankle joint. 2+ DP pulse. Distal foot is warm and well-perfused. She has intact sensation Skin: General: Skin is warm and dry. Findings: No rash. Neurological: Mental Status: She is alert and oriented to person, place, and time. Motor: No abnormal muscle tone. Procedures Procedures documented in this encounter Miscellaneous Notes * Plan of Care - Kerline Bull RN - 02/19/2024 1132 EDT D: 54y F, A&Ox2 w/ confusion about time, HD#15 for several concerns including UTI, FTT, ankle fracture (LLE), ileus, B12/folate deficiency, urinary retention. 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 Speech hesitant and occasional expressive aphasia d/t Hx: CVA and subsequent right sided MSK deficit. Meds whole in pudding, pt tolerated well. VSS. Bowel s ounds active in all 4 quadrants. A: Q2 turns preformed. Educated on importance of utilizing current prescribed bowel regimen, pt continues to decline. Administered IVIG, pt tolerated well, no acute events. Initiated SCDs and Low [place]oss motor. R: Pt declined all bowel regimens today including Miralax, suppository, and enema. LBM was 02/13. Ptverbalizes understanding of bowel-regimen teaching. Agreeable to bedtime dose of senna and startingMiralax and PO bisacodyl tomorrow AM. Pt is reliable to ring call farris and make needs know. Currently resting in bed in semi-molina's and denies concerns or questions at this time. Problem: Daily Care Plan Goals Goal: Care Plan Documentation Outcome: Ongoing Problem: High Fall Risk: Goal: Patient will Remain Free of Falls due to Med. Side Effects Outcome: Ongoing Problem: High Fall Risk: Goal: Patient Will Remain Free from Fall-Related Injury Outcome: Ongoing Problem: High Fall Risk: Goal: Patient will Remain Free of Falls due to Altered Mobility Outcome: Ongoing Problem: Sensory: Goal: Ability to compensate for vision loss will be supported Outcome: Ongoing Problem: High Fall Risk: Goal: Patient will Remain Free of Falls due to Dizziness/Vertigo Outcome: Ongoing Problem: High Fall Risk: Goal: Patient will Remain Free of Falls due to Altered Elimination Outcome: Ongoing Problem: PAIN Goal: Patient's pain/discomfort is manageable/tolerable Outcome: Ongoing Problem: Daily Care Plan Goals Goal: Care Plan Documentation Outcome: Ongoing Problem: SKIN INTEGRITY Goal: Skin integrity will improve or be maintained Outcome: Ongoing Problem: Pressure Ulcer Prevention Goal: Absence Of Pressure Ulcer Outcome: Ongoing Problem: Risk For Imapaired Skin Integrity Goal: Incontinence Is Managed Outcome: Ongoing Problem: Impaired Skin Integrity Goal: Signs of wound healing will improve Outcome: Ongoing Problem: High Fall Risk: Goal: Patient will Remain Free of Falls due to Confusion Outcome: Ongoing * Plan of Care - Marya Diaz RN - 02/19/2024 0506 EDT Problem: High Fall Risk: Goal: Patient Will Remain Free from Fall-Related Injury Outcome: Ongoing Problem: High Fall Risk: Goal: Patient will Remain Free of Falls due to Altered Mobility Outcome: Ongoing Problem: High Fall Risk: Goal: Patient will Remain Free of Falls due to Dizziness/Vertigo Outcome: Ongoing Patient is alert and oriented X2, requiring Q2 T&R. Patient c.o pain X1 managed with scheduled tylenol. IVIG infused per policy- no acute reactions noted, reyes in place and draining. Frequent rounding performed, safety maintained, * Plan of Care - Omaira Tao RN - 02/18/2024 1529 EDT A+Ox1-2, VSS on RA. Slurred speech baseline. Pills whole one at a time in pudding. Q2 repos, heels floated, pt unable to ambulate due to weakness. Got lumbar puncture today, no precautions per same day surgery RN. Getting 2L fluids per JAN. Problem: Daily Care Plan Goals Goal: Care Plan Documentation Outcome: Ongoing Problem: High Fall Risk: Goal: Patient will Remain Free of Falls due to Med. Side Effects Outcome: Ongoing Problem: High Fall Risk: Goal: Patient Will Remain Free from Fall-Related Injury Outcome: Ongoing Problem: High Fall Risk: Goal: Patient will Remain Free of Falls due to Altered Mobility Outcome: Ongoing Problem: Sensory: Goal: Ability to compensate for vision loss will be supported Outcome: Ongoing Problem: High Fall Risk: Goal: Patient will Remain Free of Falls due to Dizziness/Vertigo Outcome: Ongoing Problem: High Fall Risk: Goal: Patient will Remain Free of Falls due to Altered Elimination Outcome: Ongoing Problem: PAIN Goal: Patient's pain/discomfort is manageable/tolerable Outcome: Ongoing Problem: Daily Care Plan Goals Goal: Care Plan Documentation Outcome: Ongoing Problem: SKIN INTEGRITY Goal: Skin integrity will improve or be maintained Outcome: Ongoing Problem: Pressure Ulcer Prevention Goal: Absence Of Pressure Ulcer Outcome: Ongoing Problem: Risk For Imapaired Skin Integrity Goal: Incontinence Is Managed Outcome: Ongoing Problem: Impaired Skin Integrity Goal: Signs of wound healing will improve Outcome: Ongoing Problem: High Fall Risk: Goal: Patient will Remain Free of Falls due to Confusion Outcome: Ongoing * Plan of Care - Justina Earl RN - 02/18/2024 0503 EDT Problem: Daily Care Plan Goals Goal: Care Plan Documentation Outcome: Ongoing Problem: High Fall Risk: Goal: Patient will Remain Free of Falls due to Med. Side Effects Outcome: Ongoing Problem: High Fall Risk: Goal: Patient Will Remain Free from Fall-Related Injury Outcome: Ongoing Problem: High Fall Risk: Goal: Patient will Remain Free of Falls due to Altered Mobility Outcome: Ongoing Problem: Sensory: Goal: Ability to compensate for vision loss will be supported Outcome: Ongoing Problem: High Fall Risk: Goal: Patient will Remain Free of Falls due to Dizziness/Vertigo Outcome: Ongoing Problem: High Fall Risk: Goal: Patient will Remain Free of Falls due to Altered Elimination Outcome: Ongoing Problem: PAIN Goal: Patient's pain/discomfort is manageable/tolerable Outcome: Ongoing Problem: Daily Care Plan Goals Goal: Care Plan Documentation Outcome: Ongoing Problem: SKIN INTEGRITY Goal: Skin integrity will improve or be maintained Outcome: Ongoing Problem: Pressure Ulcer Prevention Goal: Absence Of Pressure Ulcer Outcome: Ongoing Problem: Risk For Imapaired Skin Integrity Goal: Incontinence Is Managed Outcome: Ongoing Problem: Impaired Skin Integrity Goal: Signs of wound healing will improve Outcome: Ongoing Problem: High Fall Risk: Goal: Patient will Remain Free of Falls due to Confusion Outcome: Ongoing No acute events overnight. Alert and oriented X2 with periodic confusion. History of CVA with left sided deficits. Bilateral clear lung sounds while on RA. Lovenox for VTE precautions. Diet advanced to minced and moist with thin liquids. Currently with a UTI, Ceftriaxone 1g IV for 7 days per MD. 16Fr reyes catheter in place draining yellow urine. Incontinent to bowels, last bowel movement remains on 02/13. Bowel sounds active to all 4 quadrants. Q2 hourly incontinence with turns, heavy 2X assist. PT on board. Q8HVS. VSS. * Plan of Care - Dionna Perea RN - 02/17/2024 1602 EDT Problem: Daily Care Plan Goals Goal: Care Plan Documentation Outcome: Ongoing Flowsheets (Taken 02/17/2024 1152 by Gianluca Lestre) Area of Focus: Skin Integrity Goal This Shift: Skin integrity will be maintained, q2 repositions and continence checks Note: Patient alert and oriented to person only. Has difficulty word finding. Most of the time is able to express needs, just needs extra time. Limited movement and sensation of all extremities. Total assist with mobility, feeding, hygiene. Poor P.O. intake. Encouraging fluid intake. Offering drinkevery time staff enters room. Reyes catheter in place - patent and draining. Plan to reassess removal for voiding trial tomorrow. Patient is unable to stand/use sarasteady at this time. Rec from PT is tawanda lift. Patient refused miralax and suppository this morning. No BM today. BILLET GRINDER assessed patient and upgraded from puree and thickened liquids to minced and moist with thin liquids. Q2 turns provided. Walking boot to left foot - refused removal for wash up and skin assessment multiple times. Heels floated. Sacral mepilex applied to coccyx. Episode of low BP - see flowsheet. Notified provider and rechecked with better results. LR bolus and IV mag X1 given - see eMAR. Patient complains of pain to legs. Pain mostly controlled with scheduled lyrica, tylenol and robaxin. Request made for PRN pain medication. Soft call farris provided to patient as she is unable to use regular call farris. Frequent checks in place. Safety maintained. Problem: High Fall Risk: Goal: Patient will Remain Free of Falls due to Dizziness/Vertigo Outcome: Ongoing Problem: PAIN Goal: Patient's pain/discomfort is manageable/tolerable Outcome: Ongoing Problem: SKIN INTEGRITY Goal: Skin integrity will improve or be maintained Outcome: Ongoing * Plan of Care - Gianluca Lester - 02/17/2024 1255 EDT Data: Pt. Has limited range of movement d/t CVA hx. Scored a 12 on Teja Score. Skin on back, heels, sacrum is pink and blanchable. Pt. Does not have any current manifestations of skin breakdown. Action: Q2 repositioning with EDGER RUNNER, Applied Z-guard to sacrum, applied sacral mepilex, heels floated, new chucks. Response: Pt. Tolerates Q2 repositioning fairly. Pt. Does not have any evidence of further skin breakdown, skin is pink and blanchable. Pt. Is currently resting in semi fowlers to the left side with call farris and side table within reach with bed in lowest position and alarm on. Pt. Expresses that needs are met at this time. GIANLUCA LESTER 02/17/2024 12:56 Problem: Pressure Ulcer Prevention Goal: Absence Of Pressure Ulcer Outcome: Ongoing Cosigned by Ignacio Razo, AZALEA at 02/17/2024 13:45 EDT * Plan of Care - Justina Earl RN - 02/17/2024 0601 EDT Problem: Daily Care Plan Goals Goal: Care Plan Documentation Outcome: Ongoing Problem: High Fall Risk: Goal: Patient will Remain Free of Falls due to Med. Side Effects Outcome: Ongoing Problem: High Fall Risk: Goal: Patient Will Remain Free from Fall-Related Injury Outcome: Ongoing Problem: High Fall Risk: Goal: Patient will Remain Free of Falls due to Altered Mobility Outcome: Ongoing Problem: Sensory: Goal: Ability to compensate for vision loss will be supported Outcome: Ongoing Problem: High Fall Risk: Goal: Patient will Remain Free of Falls due to Dizziness/Vertigo Outcome: Ongoing Problem: High Fall Risk: Goal: Patient will Remain Free of Falls due to Altered Elimination Outcome: Ongoing Problem: PAIN Goal: Patient's pain/discomfort is manageable/tolerable Outcome: Ongoing Problem: Daily Care Plan Goals Goal: Care Plan Documentation Outcome: Ongoing Problem: SKIN INTEGRITY Goal: Skin integrity will improve or be maintained Outcome: Ongoing Problem: Pressure Ulcer Prevention Goal: Absence Of Pressure Ulcer Outcome: Ongoing Problem: Risk For Imapaired Skin Integrity Goal: Incontinence Is Managed Outcome: Ongoing Problem: Impaired Skin Integrity Goal: Signs of wound healing will improve Outcome: Ongoing Problem: High Fall Risk: Goal: Patient will Remain Free of Falls due to Confusion Outcome: Ongoing Patient a 54yo female admitted on 02/03 s/p fall. Xray revealed left ankle fx. Currently we have orders for a walking boot. PT on board. Alert and oriented X2 with periodic confusion. Patient has a history of CVA with left sided deficits. Currently on RA, clear lungs sounds bilaterally with continuous pulse oximetry. Lovenox for VTE precautions. Eliquis held on 02/14 for possible LP per MD. 20G IV to the right FA that is patent and flushes well without any resistance. Currently on a dysphagia diet, BILLET GRINDER following. Currently with a UTI with Ceftriaxone 1g IV for 7 days per MD. 16Fr reyes catheterin place draining dark yellow urine as documented. Incontinent to bowel with last bowel movement on 02/13. Q2 hourly incontinence and turns, heavy 2X assist. PT on board. PT recommending ABDIAZIZ. Pain controlled with pregabalin and methocarbamol. Q8HVS. VSS. * Plan of Care - Kerline Bull RN - 02/16/2024 8185 EDT D: 54y F, A&Ox1-2, HD#12 for several concerns including UTI, FTT, ankle fracture (LLE), possible ileus, B12/folate deficiency, urinary retention.Speech slurred and hesitant d/t Hx: CVA and subsequent right sided deficit. Meds crushed in pudding for administration due to difficulty with chewing/swallowing. A: Administered IM folic acid and B12 per MD orders. Assessed reyes status an completed reyes care. Output documented, see flowsheet. Educated pt on subQ lovenox administration process and reason for necessity, administered w/ pt consent. Encouraged pton cough/deep breathing and ambulation. Educated pt on importance of bowel motility to prevent ileus and need for surgery. Q2 turns preformed. R: Pt declined all bowel regimens today including Miralax, suppository, and enema. States I just need a break. Pt verbalizes understanding of bowel- regimen teaching. Pt is reliable to ring call farris and make needs know. Currently resting in bed in semi-molina's anddenies concerns or questions at this time. Problem: Daily Care Plan Goals Goal: Care Plan Documentation Outcome: Ongoing Problem: High Fall Risk: Goal: Patient will Remain Free of Falls due to Med. Side Effects Outcome: Ongoing Problem: High Fall Risk: Goal: Patient Will Remain Free from Fall-Related Injury Outcome: Ongoing Problem: High Fall Risk: Goal: Patient will Remain Free of Falls due to Altered Mobility Outcome: Ongoing Problem: Sensory: Goal: Ability to compensate for vision loss will be supported Outcome: Ongoing Problem: High Fall Risk: Goal: Patient will Remain Free of Falls due to Dizziness/Vertigo Outcome: Ongoing Problem: High Fall Risk: Goal: Patient will Remain Free of Falls due to Altered Elimination Outcome: Ongoing Problem: PAIN Goal: Patient's pain/discomfort is manageable/tolerable Outcome: Ongoing Problem: Daily Care Plan Goals Goal: Care Plan Documentation Outcome: Ongoing Problem: SKIN INTEGRITY Goal: Skin integrity will improve or be maintained Outcome: Ongoing Problem: Pressure Ulcer Prevention Goal: Absence Of Pressure Ulcer Outcome: Ongoing Problem: Risk For Imapaired Skin Integrity Goal: Incontinence Is Managed Outcome: Ongoing Problem: Impaired Skin Integrity Goal: Signs of wound healing will improve Outcome: Ongoing Problem: High Fall Risk: Goal: Patient will Remain Free of Falls due to Confusion Outcome: Ongoing * Plan of Care - Justina Earl RN - 02/16/2024 0655 EDT Problem: Daily Care Plan Goals Goal: Care Plan Documentation Outcome: Ongoing Problem: High Fall Risk: Goal: Patient will Remain Free of Falls due to Med. Side Effects Outcome: Ongoing Problem: High Fall Risk: Goal: Patient Will Remain Free from Fall-Related Injury Outcome: Ongoing Problem: High Fall Risk: Goal: Patient will Remain Free of Falls due to Altered Mobility Outcome: Ongoing Problem: Sensory: Goal: Ability to compensate for vision loss will be supported Outcome: Ongoing Problem: High Fall Risk: Goal: Patient will Remain Free of Falls due to Dizziness/Vertigo Outcome: Ongoing Problem: High Fall Risk: Goal: Patient will Remain Free of Falls due to Altered Elimination Outcome: Ongoing Problem: PAIN Goal: Patient's pain/discomfort is manageable/tolerable Outcome: Ongoing Problem: Daily Care Plan Goals Goal: Care Plan Documentation Outcome: Ongoing Problem: SKIN INTEGRITY Goal: Skin integrity will improve or be maintained Outcome: Ongoing Problem: Pressure Ulcer Prevention Goal: Absence Of Pressure Ulcer Outcome: Ongoing Problem: Risk For Imapaired Skin Integrity Goal: Incontinence Is Managed Outcome: Ongoing Problem: Impaired Skin Integrity Goal: Signs of wound healing will improve Outcome: Ongoing Problem: High Fall Risk: Goal: Patient will Remain Free of Falls due to Confusion Outcome: Ongoing No acute events overnight. Patient alert and oriented X2. Lungs clear bilaterally while on RA. Right AC SL. Regular diet. VSS. * Plan of Care - Preethi Alfaro RN - 02/15/2024 1921 EDT Problem: Daily Care Plan Goals Goal: Care Plan Documentation Outcome: Met This Shift Flowsheets (Taken 02/15/2024 0934) Area of Focus: Skin Integrity Goal This Shift: prevent further skin breakdown Assumed care at 0700. Alert and oriented to person and place. Lung sounds CTA, maintaining O2 saturation at or above 92% on room air. No complaints of cough, shortness of breath, or chest pain. Medications given per MD order, see eMAR. Difficulty swallowing pills; tried pudding, sherbet, and apple sauce with no success. Patient refused large PM meds as unable to swallow them. Complained of 10/10 pain in left ankle; scheduled pain medication given with good effect. Complained of nausea, difficulty chewing and swallowing solids (mac and cheese, grilled cheese). MD aware, diet changed to pureewith thin liquids. Incontinence checks and turned q 2 hours. Reyes care done q shift. VSS, NAD. Hourly rounding done. Call farris within reach. * Plan of Care - Justina Earl RN - 02/15/2024 0644 EDT Problem: Daily Care Plan Goals Goal: Care Plan Documentation Outcome: Ongoing Problem: High Fall Risk: Goal: Patient will Remain Free of Falls due to Med. Side Effects Outcome: Ongoing Problem: High Fall Risk: Goal: Patient Will Remain Free from Fall-Related Injury Outcome: Ongoing Problem: High Fall Risk: Goal: Patient will Remain Free of Falls due to Altered Mobility Outcome: Ongoing Problem: Sensory: Goal: Ability to compensate for vision loss will be supported Outcome: Ongoing Problem: High Fall Risk: Goal: Patient will Remain Free of Falls due to Dizziness/Vertigo Outcome: Ongoing Problem: High Fall Risk: Goal: Patient will Remain Free of Falls due to Altered Elimination Outcome: Ongoing Problem: PAIN Goal: Patient's pain/discomfort is manageable/tolerable Outcome: Ongoing Problem: Daily Care Plan Goals Goal: Care Plan Documentation Outcome: Ongoing Problem: SKIN INTEGRITY Goal: Skin integrity will improve or be maintained Outcome: Ongoing Problem: Pressure Ulcer Prevention Goal: Absence Of Pressure Ulcer Outcome: Ongoing Problem: Risk For Imapaired Skin Integrity Goal: Incontinence Is Managed Outcome: Ongoing Problem: Impaired Skin Integrity Goal: Signs of wound healing will improve Outcome: Ongoing Problem: High Fall Risk: Goal: Patient will Remain Free of Falls due to Confusion Outcome: Ongoing No acute events overnight. Patient alert and oriented X2. Lungs clear bilaterally while on RA. Right AC SL. Regular diet. Right sided deficit with hx of CVA. PT on board. VSS. * Plan of Care - Aleksandra He RN - 02/13/2024 0613 EDT Problem: High Fall Risk: Goal: Patient Will Remain Free from Fall-Related Injury Outcome: Ongoing Problem: SKIN INTEGRITY Goal: Skin integrity will improve or be maintained Outcome: Ongoing Patient is Ax2, confused, bed bound, turning Q2H. Patient has a poor appetite. When she talks she is slow to respond and sometimes her words are slurred, her mentation is off, she had a previous CVA a couple of years ago. . She fell at home and has a left ankle avulsion fracture. PT was consulted but she was unable to work with them. Patient had 3 large BM's on my shift and 2 on day shift. Her LBM is 02/13/2024. She hasn't had any nausea for me. She has a Reyes catheter in place. She can use a bed dickens for stool but for the most part she is incontinent. She is on a clear liquid diet with very little intake. Patient has a scab on her Left knee and a scab behind her right ankle. Patient is total care, when giving her her meds she couldn't hold her cup so I held her cup and gave her meds 1 jean paul time. Patient is bed bound, turning her Q2H to maintain skin integrity, hourly rounding being done, bed alarm is on for safety. Call farris is within reach, patient safety maintained will continue tomonitor. * Plan of Care - Eddie Marti RN - 02/12/2024 0413 EDT Patient requested PRN pain medications for 7/10 L ankle pain, PRN Tylenol brought into patient as IVP medications not available for another hour, patient stated she can't take Tylenol because it makes me sick, PRN Zofran offered to patient with Tylenol to counteract nausea and explained IVP meds were not due for another hour, patient then stated she can't swallow pills, nursing offered to crush or cut pills in half, patient said she wanted to wait until IV medications were available. Primary nurse notified. EDDIE MARTI RN 02/12/2024 04:18 * Plan of Care - Sheryl Langley LPN - 02/11/2024 1637 EDT Problem: Daily Care Plan Goals Goal: Care Plan Documentation Outcome: Ongoing Flowsheets (Taken 02/11/2024 1100) Area of Focus: Pain/ Comfort Goal This Shift: Continue to monitor for any acute signs of distress Problem: Cognitive: Goal: Mental status/cognition is maintained/returned to baseline Outcome: Ongoing Problem: High Fall Risk: Goal: Patient will Remain Free of Falls due to Med. Side Effects Outcome: Ongoing Problem: High Fall Risk: Goal: Patient Will Remain Free from Fall-Related Injury Outcome: Ongoing Problem: High Fall Risk: Goal: Patient will Remain Free of Falls due to Altered Mobility Outcome: Ongoing Problem: Sensory: Goal: Ability to compensate for vision loss will be supported Outcome: Ongoing Problem: PAIN Goal: Patient's pain/discomfort is manageable/tolerable Outcome: Ongoing Problem: SKIN INTEGRITY Goal: Skin integrity will improve or be maintained Outcome: Ongoing Problem: Pressure Ulcer Prevention Goal: Absence Of Pressure Ulcer Outcome: Ongoing * Plan of Care - Yudi Camp RN - 02/10/2024 1630 EDT Problem: SKIN INTEGRITY Goal: Skin integrity will improve or be maintained Outcome: Ongoing Problem: Risk For Imapaired Skin Integrity Goal: Incontinence Is Managed Outcome: Ongoing Problem: Impaired Skin Integrity Goal: Signs of wound healing will improve Outcome: Ongoing Problem: Daily Care Plan Goals Goal: Care Plan Documentation Outcome: Ongoing Flowsheets (Taken 02/10/2024 0945) Area of Focus: GI//Elimination Goal This Shift: Pt will have more BM's, less urine retention and be OOB to the chair Q4 to help with GI/ mobility. Data: Pt A/Ox2, (wifty at times), complaint of pain 03/04 related to left ankle but all other VSS. Pt was admitted on (02/03) for a sprain of the left ankle. 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 Pt is a 1-2x/assist with filemon steady, has a boot on LLE, NPO since midnight, D5+LR+20K at 100mL/hr and has been very constipated wit h little urine output as well. Plan is for pt to have more BM's, less urine retention and be OOB tothe chair Q4 as well as work with PT. Action: Assessment complete and most PO medication no given d/t pt still vomiting up small amounts of bile. Pt switched to D5W at 75mL/hr continuous d/t potassium and chloride slightly elevated from original continuous fluids. Pt had two episodes of incont and did void a small amount. Bladder scan showed 130 mL. Pt given IV dilaudid x2 and one dose of ativan with somewhat good effect. MD ordered CT and X-rays of abdomen which showed stool is decreasing in abdomen but air is continuing to build up. Pt was OOB to the chair for a few hours today. Lactulose enema given x1 with somewhat good effect. Off loading boot placed on RLE to help with drop foot and skin breakdown. Response: Pt currently in bed, expressing some discomfort, ativan had good effect before change of shift. Pt expressing some emotional need d/t not being able to eat or drink anything. D5W still running and IV patent with no concerns since I redressed site. Call farris within reach, BP slightly elevated and all other VSS. YUDI CAMP RN 02/10/2024 21:15 * Plan of Care - Yudi Camp RN - 02/09/2024 8495 EDT Problem: Cognitive: Goal: Mental status/cognition is maintained/returned to baseline Outcome: Ongoing Problem: Risk For Imapaired Skin Integrity Goal: Incontinence Is Managed Outcome: Ongoing Problem: Daily Care Plan Goals Goal: Care Plan Documentation Outcome: Not Met This Shift Flowsheets (Taken 02/09/2024 9247) Area of Focus: GI//Elimination Goal This Shift: Pt will void today and have less constipation. Data: Pt A/Ox2, (wifty at times), complaint of pain 4/10 related to left ankle but all other VSS. Pt was admitted on (02/03) for a sprain of the left ankle. 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 Pt is a 1-2x/assist with filemon [employer], has a boot on LLE, NPO since midnight, D5+LR+20K at 100mL/hr and has been very constipated wit h little urine output as well. Plan is to void and have less constipation. Action: Assessment complete and only one PO med given but was instantly vomited up. Pt did not takeany other PO meds today. MD ordered more lactulose enema's (two given by me) and IV Mag and Potassium. Pt went down for a CT and US of Abdomen. Pt given two does of IV 0.5mg dilaudid for pain with good effect. Pt did not void and bladder scan for 488 mL. MD notified and straight cath order placed. also placed orders for pt to be OOB to chair Q4 while awake to help promote GI movement. I spoke with sister again today and gave updates about plans moving forward. Response: Pt has had good output of bowels since enema's were given. Straight cath for 500 mL of jayant cloudy urine. Scans showed that stool impacted is decreasing but there is a large amount of air GI tract related to the distention and constipation of stool. Pt will continue to be NPO overnight anticipating a surgical procedure tomorrow. Pt currently in bed, expressing some pain from IV potassium, call farris within reach and all VSS. YUDI CAMP RN 02/09/2024 14:57 * Plan of Care - Cecelia Tapia RN - 02/09/2024 0536 EDT HD 5 pt admitted with L ankle sprain, inability for self-care. Multiple liquid stools following lactulose retention enemas. Several hard lumps of stool noted, mostly liquid with little solid matter. Pt has been NPO this shift due to multiple episodes of emesis. Attempted but unable to pass NGT due to resistance met in both nares. Z guard applied to protect skin. Up to BSC several times with Francesca. * Plan of Care - Yudi Camp RN - 02/08/20242009 EDT Problem: Cognitive: Goal: Mental status/cognition is maintained/returned to baseline Outcome: Ongoing Problem: Sensory: Goal: Ability to compensate for vision loss will be supported Outcome: Ongoing Problem: High Fall Risk: Goal: Patient will Remain Free of Falls due to Altered Elimination Outcome: Ongoing Problem: PAIN Goal: Patient's pain/discomfort is manageable/tolerable Outcome: Ongoing Problem: Daily Care Plan Goals Goal: Care Plan Documentation Outcome: Ongoing Flowsheets (Taken 02/08/2024 1035) Area of Focus: GI//Elimination Goal This Shift: Pt will have a BM and be OOB to BSC or chair wsith pain at tolerable level. Data: Pt A/Ox3, (wifty at times), complaint of pain 03/04 related to left ankle but all other VSS. Pt was admitted on (02/03) for a sprain of the left ankle. 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 Pt is a 1-2x/assist with filemon steady, has a boot on LLE, on clear liquid diet, LR at 100mL/hr and has been very constipated with lit tle urine output as well. Plan is to give bowel meds and have pt have a BM as well as keep pain at tolerable level. Action: Assessment complete and some meds given PO but was unable to keep much down today. Multipleepisodes of vomiting, IV zofran given x2 with somewhat good effect. changed fluids to D5+LR+20K+at 100mL/hr continuous d/t poor PO intake throughout the day. MD notified of constipation and not keeping much down PO. MD added IV pain meds as well as IV protonix to help with GI upset. MD also ordered lactulose oral solution which did not work (pt vomited up) and a lactulose enema was given instead. Pt not voiding much today, bladder scan for >1000, notified and Summer, RN did a straightcath with 1150 of output. placed an order for pt to be NPO after midnight for US of abdomen at 0800 tomorrow morning. Response: Somewhat good effect with the enema (525 mL of stool out after 60 mins) but still pretty constipated. Night RN notified of straight cath and will bladder scan again later in the evening. Unable to give second lactulose enema d/t urine retention and initial enema given late. IV pain meds had good effect and pt was able to sleep for a few hours. Pt currently in bed, showing no signs of pain or discomfort, call farris within reach, fluids running, ankle brace in place and all VSS. YUDI CAPM RN 02/08/2024 20:11 * Plan of Care - Cecelia Tapia RN - 02/08/2024 0201 EDT HD 4 pt admitted with l ankle sprain and inability to safely discharge. Pt c/o nausea this shift: senna given but pt refused miralax.. Vomited small amount later in shift. IVF infusing per order.transfers with filemon rodriguez, repos self in bed. * Plan of Care - Candy Richards RN - 02/07/2024 1621 EDT Problem: Daily Care Plan Goals Goal: Care Plan Documentation 02/07/2024 1621 by Candy Richards RN Outcome: Ongoing 02/07/2024 1054 by Candy Richards RN Outcome: Ongoing Problem: Daily Care Plan Goals Goal: Care Plan Documentation 02/07/2024 1621 by Candy Richards RN Outcome: Ongoing 02/07/2024 1054 by Candy Richards RN Outcome: Ongoing Problem: High Fall Risk: Goal: Patient will Remain Free of Falls due to Med. Side Effects Outcome: Ongoing Problem: High Fall Risk: Goal: Patient Will Remain Free from Fall-Related Injury Outcome: Ongoing Problem: High Fall Risk: Goal: Patient will Remain Free of Falls due to Altered Mobility Outcome: Ongoing Problem: PAIN Goal: Patient's pain/discomfort is manageable/tolerable Outcome: Ongoing * Plan of Care - Candy Richards RN - 02/07/2024 1054 EDT Problem: Daily Care Plan Goals Goal: Care Plan Documentation Outcome: Ongoing Problem: Daily Care Plan Goals Goal: Care Plan Documentation Outcome: Ongoing Problem: High Fall Risk: Goal: Patient will Remain Free of Falls due to Med. Side Effects Outcome: Ongoing Problem: High Fall Risk: Goal: Patient Will Remain Free from Fall-Related Injury Outcome: Ongoing Problem: High Fall Risk: Goal: Patient will Remain Free of Falls due to Altered Mobility Outcome: Ongoing Problem: PAIN Goal: Patient's pain/discomfort is manageable/tolerable Outcome: Ongoing Assumed care of patient at 0725; patient alert and oriented to person, place, time, and situation; flat affect with delayed responses s/t aphasia; patient endorses 2/10 pain in left ankle, immobilizer in place, skin warm, pulses palpable, bruising present, capillary refill <3 seconds; states goal this shift is to manage pain so that she can work with therapy later today; plan of care discussedwith patient, head to toe assessment completed and charted in EMR, medications administered per MAR. Two episodes of vomiting with abdominal discomfort; PRN medication administered per MAR, physician notified; Abd xray completed, results pending. * Plan of Care - Cecelia Tapia RN - 02/07/2024 0324 EDT HD 3 Pt admitted with severe l ankle sprain, requiring PT to assist with ambulation. Rehab pending.Pt stated that oxycodone made her sl dizzym, but did relieve pain. Encouraged to use pain meds as needed to make ambulation easier. Foot in boot remains warm and dry, no apreas of pressure noted. Repos self in bed. * Plan of Care - Candy Richards RN - 02/06/2024 1018 EDT Problem: Daily Care Plan Goals Goal: Care Plan Documentation 02/06/2024 1018 by Candy Richards RN Outcome: Ongoing 02/06/2024 101 by Candy Richards RN Outcome: Ongoing Problem: Daily Care Plan Goals Goal: Care Plan Documentation 02/06/2024 1018 by Candy Richards RN Outcome: Ongoing 02/06/2024 101 by Candy Richards RN Outcome: Ongoing Problem: High Fall Risk: Goal: Patient will Remain Free of Falls due to Altered Mobility 02/06/2024 101 by Candy Richards RN Outcome: Ongoing 02/06/2024 101 by Candy Richards RN Outcome: Ongoing Problem: PAIN Goal: Patient's pain/discomfort is manageable/tolerable 02/06/2024 101 by Candy Richards RN Outcome: Ongoing 02/06/20241013 by Candy Richards RN Outcome: Ongoing Assumed care of patient at 0700; patient oriented x3, endorses left ankle pain 0/10 at rest, 4/10 with movement, walking boot and compression sleeve removed, skin is bruised, warm and intact; pulses palpable, capillary refill <3 seconds; plan of care discussed with patient. Patient endorses fearand anxiety regarding falling while working with physical therapy; PRN medications discussed with riley argueta; patient agrees to participate in therapy today to the best of her ability. Head to toe assessment completed and charted in EMR, medications administered per MAR. Patient endorsing nausea during and after meals, PRN medications given per order. Patient endorses adequate relief with PRN medication administration. Patient endorses breakthrough pain post PT session; physician contacted, PRN medications ordered and given per MAR. * Plan of Care - Nelson Medina RN - 02/06/2024 0504 EDT Pt AOX3, transfers with filemon steady. Clear lung sounds, room air. Left ankle boot on, some trace edema visualize, palpable pedal pulse. Pt medicated for pain per eMAR documentation. Bed alarm on, call farris within reach, hourly rounding in place. Problem: Daily Care Plan Goals Goal: Care Plan Documentation Outcome: Ongoing Problem: Cognitive: Goal: Mental status/cognition is maintained/returned to baseline Outcome: Ongoing Problem: High Fall Risk: Goal: Patient will Remain Free of Falls due to Med. Side Effects Outcome: Ongoing Problem: High Fall Risk: Goal: Patient Will Remain Free from Fall-Related Injury Outcome: Ongoing Problem: High Fall Risk: Goal: Patient will Remain Free of Falls due to Altered Mobility Outcome: Ongoing Problem: Sensory: Goal: Ability to compensate for vision loss will be supported Outcome: Ongoing Problem: High Fall Risk: Goal: Patient will Remain Free of Falls due to Dizziness/Vertigo Outcome: Ongoing Problem: High Fall Risk: Goal: Patient will Remain Free of Falls due to Altered Elimination Outcome: Ongoing Problem: PAIN Goal: Patient's pain/discomfort is manageable/tolerable Outcome: Ongoing * Plan of Care - Uma Beltran - 02/05/2024 1601 EDT 02/05/24 1601 Medicare IM Notice IM notice status Patient received notification verbally and in writing while in hospital. IM notice given on admission? Yes Given on 02/05/24 * Plan of Care - Candy Richards RN - 02/05/2024 1008 EDT Problem: PAIN Goal: Patient's pain/discomfort is manageable/tolerable Outcome: Ongoing Assumed care of patient at 0700. Patient rates pain of 6/10 in left ankle, pain relieved by medication; care plan reviewed with patient, patient verbalizes understanding; fall risk discussed with patient, patient agrees to use call farris appropriately. Head to toe assessment completed and charted inthe EMR, medications administered per MAR. Patient had episode of emesis with bloody streaks; volume : 50mL, physician notified, picture loaded into chart for reference. 1334 Patient sister confirms patient had BM 3 days ago; patient later endorses no BM in 7 days. Physician has scheduled bowel regimen and patient amenable to enema later today. * Plan of Care - Swathi Hart, AZALEA - 02/05/2024 0013 EDT Pt is able to make needs known and call farris remained within reach. Scheduled and PRN medications given as ordered. Pt with boot on left foot over night. Care was clustered to promote sleep. Frequentrounding in place and pt safety maintained. Problem: Daily Care Plan Goals Goal: Care Plan Documentation Outcome: Met This Shift Flowsheets (Taken 02/05/202412) Area of Focus: Safety Goal This Shift: Pt pain will be well controlled Problem: High Fall Risk: Goal: Patient will Remain Free of Falls due to Med. Side Effects Outcome: Met This Shift Problem: High Fall Risk: Goal: Patient Will Remain Free from Fall-Related Injury Outcome: Met This Shift Problem: High Fall Risk: Goal: Patient will Remain Free of Falls due to Altered Mobility Outcome: Met This Shift * Plan of Care - Sridevi Hyatt - 02/04/2024 1538 EDT 02/04/24 1537 Observation Notification Notification of outpatient observation services [place] received notification verbally and in writing while patient in hospital. Obs letter complete? Yes documented in this encounter Plan of Treatment Upcoming Encounters Date Type Department Care Team (Late st Contact Info) Description 03/04/2025 14:00 EDT Telemedicine [facility] [address] [place] [address] Brayan Polk MD [address] [facility] [address] [place] [id number] 07/14/2025 14:30 EDT Office Visit [facility] H[facility] & Oncology - Main [address] [address] Evin Maria MD [address] [facility], [address] [place] [id number] Scheduled Orders Name Type Priority Associated Diagnoses Orde r Schedule ANESTHESIA LUMBAR PUNCTURE REQUEST Procedures Routine One Time for 1 Occurrences starting 02/17/2024 until 02/17/2024 documented as of this encounter Procedures Procedure Name Priority Date/Time Associated Diagnosis Comments HOLD LAVENDER TOP Routine 02/19/2024 6:1 1 EDT MAGNESIUM Routine 02/19/2024 6:11 EDT BASIC METABOLIC PANEL (BMP) Routine 02/19/2024 6:[address] CHEST W CONTRAST STAT 02/18/2024 1 8:[address] ABDOMEN PELVIS W CONTRAST STAT 02/18/2024 18:23 EDT ANTI SJOGREN'S (SSA/SSB) Routine 02/18/2024 17:58 EDT MISCELLANEOUS TEST, NEW HARMONY Routine 02/18/2024 17:58 EDT MISCELLANEOUS TEST, NEW HARMONY Routine 02/18/2024 17:58 EDT POCT GLUCOSE, INTERFACED Routine 02/18/2024 11:18 EDT CELL COUNT, CSF Routine 02/18/2024 10:23 EDT VARICELLA ZOSTER VIRUS MOLECULAR DETECTION, PCR Routine 02/18/2024 10:23 EDT HSV (HERPES SIMPLEX VIRUS) MOLECULAR DETECTION, PCR Routine 02/18/2024 10:23 EDT ENTEROVIRUS MOLECULAR DETECTION PCR, CSF Routine 02/18/2024 10:23 EDT BACTERIAL CULTURE/SMEAR Routine 02/18/2024 10:23 EDT [place] VIRUS (WNV) AB,IGG,IGM,CSF Routine 02/18/2024 10:23 EDT CELL COUNT,CSF Routine 02/18/2024 10:23 EDT TOTAL PROTEIN, CSF Routine 02/18/2024 10 :23 EDT GLUCOSE CSF Routine 02/18/2024 10:23 EDT HOLD LAVENDER TOP Routine 02/18/2024 6:3 0 EDT GM1 AUTOANTIBODY Routine 02/18/2024 6:30 EDT HEPATITIS C AB W REFLEX TO HCV RNA BY PCR Routine 02/18/2024 6:30 EDT HEPATITIS B PROFILE Routine 02/18/2024 6 :30 EDT IGA Routine 02/18/2024 6:30 EDT HIV 1/2 ANTIGEN AND ANTIBODY, 4TH GENERATION Routine 02/18/2024 6:30 EDT MAGNESIUM Routine 02/18/2024 6:30 EDT BASIC METABOLIC PANEL (BMP) Routine 02/18/2024 6:30 EDT GLUCOSE, SERUM STAT 02/17/2024 16:52 EDT INTRINSIC FACTOR ANTIBODY Routine 02/17/2024 6:37 EDT METHYLMALONIC ACID Routine 02/17/2024 6: 37 EDT MAGNESIUM Routine 02/17/2024 6:37 EDT HOMOCYSTEINE Routine 02/17/2024 6:37 EDT BASIC METABOLIC PANEL (BMP) Routine 02/17/2024 6:37 EDT MISCELLANEOUS TEST, VYAS Routine 02/17/2024 6:36 EDT ECG REPORT - SCANNED 02/17/2024 6:25 EDT HOLD LAVENDER TOP Routine 02/16/2024 8:2 5 EDT MAGNESIUM Routine 02/16/2024 7:55 EDT FOLATE Add-On 02/16/2024 7:55 EDT VITAMIN B12 Add-On 02/16/2024 7:55 EDT BASIC METABOLIC PANEL (BMP) Routine 02/16/2024 7:55 EDT HOLD LAVENDER TOP Routine 02/15/2024 6:3 9 EDT MAGNESIUM Routine 02/15/2024 6:39 EDT BASIC METABOLIC PANEL (BMP) Routine 02/15/2024 6:39 EDT MR CERVICAL SPINE WO CONTAST Routine 02/14/2024 16:39 EDT MR HEAD WO CONTRAST Routine 02/14/2024 1 6:39 EDT EKG 12-LEAD Routine 02/14/2024 10:56 EDT BACTERIAL CULTURE, BLOOD STAT 02/14/2024 10:00 EDT BACTERIAL CULTURE, BLOOD STAT 02/14/2024 10:00 EDT COMPLETE BLOOD COUNT Routine 02/14/2024 10:00 EDT HOLD LAVENDER TOP Routine 02/14/2024 6:5 1 EDT TSH Add-On 02/14/2024 6:51 EDT MAGNESIUM Routine 02/14/2024 6:51 EDT CK Add-On 02/14/2024 6:51 EDT BASIC METABOLIC PANEL (BMP) Routine 02/14/2024 6:51 EDT COMPLETE BLOOD COUNT AND DIFFERENTIAL Routine 02/13/2024 6:11 EDT C REACTIVE PROTEIN Routine 02/13/2024 6: 11 EDT MAGNESIUM Routine 02/13/2024 6:11 EDT BASIC METABOLIC PANEL (BMP) Routine 02/13/2024 6:11 EDT UA WITH REFLEX SEDIMENT (CULTURE IF POS) Routine 02/12/2024 18:38 EDT UA SEDIMENT + REFLEX TO CULTURE Today 02/12/2024 18:38 EDT BACTERIAL CULTURE, URINE Today 02/12/2024 18:38 EDT COMPLETE BLOOD COUNT AND DIFFERENTIAL Routine 02/12/2024 6:23 EDT PHOSPHORUS Routine 02/12/2024 6:22 EDT MAGNESIUM Routine 02/12/2024 6:22 EDT BASIC METABOLIC PANEL (BMP) Routine 02/12/2024 6:22 EDT XR ABDOMEN 1 VIEW STAT 02/11/2024 13: 08 EDT COMPLETE BLOOD COUNT AND DIFFERENTIAL Routine 02/11/2024 6:41 EDT MAGNESIUM Routine 02/11/2024 6:41 EDT BASIC METABOLIC PANEL (BMP) Routine 02/11/2024 6:41 EDT POCT GLUCOSE, INTERFACED Routine 02/10/2024 19:58 EDT XR ABDOMEN 2 VIEWS Routine 02/10/2024 14 :48 EDT SODIUM Routine 02/10/2024 14:11 EDT COMPLETE BLOOD COUNT Routine 02/10/2024 6:50 EDT MAGNESIUM Routine 02/10/2024 6:50 EDT COMPREHENSIVE METABOLIC PANEL (CMP) Routine 02/10/2024 6:[address] ABDOMEN PELVIS W CONTRAST STAT 02/09/2024 11:21 EDT US ABDOMEN LIMITED STAT 02/09/2024 8: 44 EDT COMPLETE BLOOD COUNT Routine 02/09/2024 7:04 EDT C REACTIVE PROTEIN Routine 02/09/2024 7: 04 EDT MAGNESIUM Routine 02/09/2024 7:04 EDT COMPREHENSIVE METABOLIC PANEL (CMP) Routine 02/09/2024 7:04 EDT XR ABDOMEN 1 VIEW STAT 02/08/2024 22: 17 EDT COMPLETE BLOOD COUNT Routine 02/08/2024 6:57 EDT MAGNESIUM Routine 02/08/2024 6:57 EDT COMPREHENSIVE METABOLIC PANEL (CMP) Routine 02/08/2024 6:[address] ABDOMEN PELVIS W CONTRAST STAT 02/07/2024 19:08 EDT XR ABDOMEN 1 VIEW STAT 02/07/2024 15: 21 EDT TROPONIN I Routine 02/07/2024 13:49 EDT HOLD LAVENDER TOP Routine 02/07/2024 7:3 5 EDT MAGNESIUM Routine 02/07/2024 7:15 EDT HEPATIC FUNCTION PANEL (ALB,ALK PHOS,ALT,AST,DBIL,TOT THIERNO,TOT PROT) Add-On 02/07/2024 7:15 EDT BASIC METABOLIC PANEL (BMP) Routine 02/07/2024 7:15 EDT COMPLETE BLOOD COUNT Routine 02/06/2024 6:45 EDT MAGNESIUM Routine 02/06/2024 6:45 EDT HOMOCYSTEINE Routine 02/06/2024 6:45 EDT BASIC METABOLIC PANEL (BMP) Routine 02/06/2024 6:45 EDT EKG 12-LEAD Routine 02/05/2024 15:14 EDT MAGNESIUM Add-On 02/04/2024 13:30 EDT FOLATE Add-On 02/04/2024 13:30 EDT VITAMIN B12 Add-On 02/04/2024 13:30 EDT COMPREHENSIVE METABOLIC PANEL (CMP) STAT 02/04/2024 13:30 EDT XR ANKLE LEFT 3 OR MORE VIEWS STAT 02/04/2024 13:[address] HEAD WO CONTRAST STAT 02/04/2024 1 3:00 EDT HOLD GREEN TOP Routine 02/04/2024 12:53 EDT HOLD BLUE TOP Routine 02/04/2024 12:53 EDT COMPLETE BLOOD COUNT AND DIFFERENTIAL STAT 02/04/2024 12:43 EDT documented in this encounter Results * HOLD LAVENDER TOP (02/19/2024 6:11 EDT) Hold Hold 02/19/2024 7:4 5 EDT [facility] Blood VENOUS BLOOD / Unknown Venipuncture / Unknown 02/19/2024 6:11 EDT 02/19/2024 6:44 EDT Victorina Macedo PA-C LAB INFO SERVICE AND SUPPORT & PHONE RESULT Final Result Performing Organization Address City/State/[facility] Co de Phone Number [facility] [address] [place] [address] * (ABNORMAL) BASIC METABOLIC PANEL (BMP) (02/19/2024 6:11 EDT) Sodium 132(L) 136 - 145 mmol/L 02/19/2024 7:26 [facility] Potassium 4.2 3.5 - 5.0 mmol/L 02/19/2024 7:26 [facility] Chloride 108 96 - 110 mmol/L 02/19/2024 7:26 [facility] CO2 Total 25 22 - 32 mmol/L 02/19/2024 7:26 [facility] Anion Gap -1(L) 5 - 14 mmol/L 02/19/2024 7:26 [facility] Glucose 98 70 - 99 mg/dl 02/19/2024 7:26 [facility] Calcium 8.9 8.5 - 10.5 mg/dL 02/19/2024 7:26 [facility] BUN 11 10 - 26 mg/dL 02/19/2024 7:26 [facility] Creatinine 0.64 0.52 - 1.04 mg/dL 02/19/2024 7:26 EDT [facility] eGFR 104 >60 mL/min/1.73 m2 02/19/2024 7:26 EDT [facility] Blood VENOUS BLOOD / Unknown Venipuncture / Unknown 02/19/2024 6:11 EDT 02/19/2024 6:42 EDT us Apolinar Diallo MD CHEMISTRY & BLOOD GAS ORDERABL ES Final Result Performing Organization Address [facility] Co de Phone Number [facility] [address] [place] [address] * (ABNORMAL) MAGNESIUM (02/19/2024 6:11 EDT) Magnesium 1.6(L) 1.7 - 2.8 mg/dL 02/19/2024 7:26 EDT [facility] Blood VENOUS BLOOD / Unknown Venipuncture / Unknown 02/19/2024 6:11 EDT 02/19/2024 6:42 EDT us Apolinar Diallo MD CHEMISTRY & BLOOD GAS ORDERABL ES Final Result Performing Organization Address [facility] de Phone Number [facility] [address] [place] [address] * CT ABDOMEN PELVIS W CONTRAST (02/18/2024 18:23 EDT) Anatomical Region Laterality Modality Body, Abdomen, Pelvis, Abdomen and Pelvis Computed Tomography 02/18/2024 18:0 8 EDT Impressions 02/18/2024 19:10 EDT 1. ?? No acute intra-abdominal finding. 2. ?? No occult intra-abdominal malignancy. THIS DOCUMENT HAS BEEN ELECTRONICALLY SIGNED BY RAQUEL HOPKISN MD FOR ANY QUESTIONS OR CONCERNS REGARDING THIS REPORT PLEASE CALL [facility] AT [phone] Narrative 02/18/2024 19:10 EDT PROCEDURE INFORMATION: Exam: CT Abdomen And Pelvis With Contrast Exam date and time: 02/18/2024 6:08 PM Age: 54 years old Clinical indication: Other: Diagnosis of aidp, neurology concerned for occult malignancy TECHNIQUE: Imaging protocol: Computed tomography of the abdomen and pelvis with contrast. Total images: 474 Radiation optimization: All CT scans at this facility use at least one of these dose optimization techniques: automated exposure control; mA and/or kV adjustment per patient size (includes targeted exams where dose is matched to clinical indication); or iterative reconstruction. Contrast material: OMNIPAQUE 350; Contrast volume: 100 ml; Contrast route: INTRAVENOUS (IV); ?? COMPARISON: CT ABDOMEN PELVIS W CONTRAST 02/09/2024 11:03 AM FINDINGS: Lungs: Discoid atelectasis versus scarring lung bases. Liver: 9 mm right hepatic cyst. 4 mm left hepatic cyst. No solid hepatic nodule. Background of moderate hepatic steatosis. Gallbladder and bile ducts: No definite gallbladder wall thickening, gallstone or biliary dilatation. Pancreas: No mass or peripancreatic stranding. Spleen: No splenomegaly or splenic nodule. Adrenal glands: No adrenal nodule. Kidneys and ureters: No renal mass. No hydronephrosis. No renal or ureteral calculi. Stomach and bowel: No definite gastric or duodenal wall thickening. No small or large bowel dilatation. No definite bowel wall thickening. Appendix: No evidence of appendicitis. Intraperitoneal space: No free air or free fluid. Vasculature: No abdominal aortic aneurysm. Lymph nodes: No significant adenopathy. Urinary bladder: Reyes catheter in an empty bladder. Reproductive: No significant finding. Bones/joints: No significant bony abnormality. Soft tissues: Injection related foci of abdominal wall soft tissue gas. Procedure Note Raquel Hopkins MD - 02/18/2024 PROCEDURE INFORMATION: Exam: CT Abdomen And Pelvis With Contrast Exam date and time: 02/18/2024 6:08 PM Age: 54 years old Clinical indication: Other: Diagnosis of aidp, neurology concerned for occult malignancy TECHNIQUE: Imaging protocol: Computed tomography of the abdomen and pelvis with contrast. Total images: 474 Radiation optimization: All CT scans at this facility use at least one of these dose optimization techniques: automated exposure control; mA and/or kV adjustment per patient size (includes targeted exams where dose is matched to clinical indication); or iterative reconstruction. Contrast material: OMNIPAQUE 350; Contrast volume: 100 ml; Contrast route: INTRAVENOUS (IV); COMPARISON: CT ABDOMEN PELVIS W CONTRAST 02/09/2024 11:03 AM FINDINGS: Lungs: Discoid atelectasis versus scarring lung bases. Liver: 9 mm right hepatic cyst. 4 mm left hepatic cyst. No solid hepatic nodule. Background of moderate hepatic steatosis. Gallbladder and bile ducts: No definite gallbladder wall thickening, gallstone or biliary dilatation. Pancreas: No mass or peripancreatic stranding. Spleen: No splenomegaly or splenic nodule. Adrenal glands: No adrenal nodule. Kidneys and ureters: No renal mass. No hydronephrosis. No renal or ureteral calculi. Stomach and bowel: No definite gastric or duodenal wall thickening. No small or large bowel dilatation. No definite bowel wall thickening. Appendix: No evidence of appendicitis. Intraperitoneal space: No free air or free fluid. Vasculature: No abdominal aortic aneurysm. Lymph nodes: No significant adenopathy. Urinary bladder: Reyes catheter in an empty bladder. Reproductive: No significant finding. Bones/joints: No significant bony abnormality. Soft tissues: Injection related foci of abdominal wall soft tissue gas. IMPRESSION 1. No acute intra-abdominal finding. 2. No occult intra-abdominal malignancy. THIS DOCUMENT HAS BEEN ELECTRONICALLY SIGNED BY RAQUEL HOPKINS MD FOR ANY QUESTIONS OR CONCERNS REGARDING THIS REPORT PLEASE CALL [facility] [phone] us Maninder Li MD IMG CT ORDERABLES Final Result * CT CHEST W CONTRAST (02/18/2024 18:23 EDT) Anatomical Region Laterality Modality Chest Computed Tomogra phy 02/18/2024 18:0 8 EDT Impressions 02/18/2024 19:01 EDT No intrathoracic occult malignancy. COMMENTS: Consistent with the [employer]'s Incidental Findings Committee white [...] DOCUMENT HAS BEEN ELECTRONICALLY SIGNED BY RAQUEL HOPKINS MD FOR ANY QUESTIONS OR CONCERNS REGARDING THIS REPORT PLEASE CALL [facility] AT [phone] Narrative 02/18/2024 19:01 EDT PROCEDURE INFORMATION: Exam: CT Chest With Contrast; Diagnostic Exam date and time: 02/18/2024 6:08 PM Age: 54 years old Clinical indication: Other: Diagnosis of aidp, neurology concerned for occult malignancy TECHNIQUE: Imaging protocol: Diagnostic computed tomography of the chest with contrast. 3D rendering (Not supervised by radiologist): MIP and/or 3D reconstructed images were created by the technologist. Total images: 821 Radiation optimization: All CT scans at this facility use at least one of these dose optimization techniques: automated exposure control; mA and/or kV adjustment per patient size (includes targeted exams where dose is matched to clinical indication); or iterative reconstruction. Contrast material: OMNIPAQUE 350; Contrast volume: 100 ml; Contrast route: INTRAVENOUS (IV); ?? COMPARISON: CT CHEST WITHOUT CONTRAST 08/11/2021 2:43 PM FINDINGS: Thyroid: Subcentimeter right thyroid lobe nodule. Lungs: Discoid atelectasis versus scarring bilateral lower lobes, right middle lobe and lingula. No consolidation. No parenchymal mass or suspicious pulmonary nodule. Pleural spaces: No pleural effusion or pneumothorax. Heart: No significant finding. Coronary arteries: Moderate coronary artery calcification. Lymph nodes: No mediastinal, hilar or axillary adenopathy. ?? Vasculature: No aortic aneurysm or dissection. Liver: Moderate hepatic steatosis. Bones/joints: No significant bony abnormality. Soft tissues: No significant finding. Procedure Note Raquel Hpokins MD - 02/18/2024 PROCEDURE INFORMATION: Exam: CT Chest With Contrast; Diagnostic Exam date and time: 02/18/2024 6:08 PM Age: 54 years old Clinical indication: Other: Diagnosis of aidp, neurology concerned for occult malignancy TECHNIQUE: Imaging protocol: Diagnostic computed tomography of the chest with contrast. 3D rendering (Not supervised by radiologist): MIP and/or 3D reconstructed images were created by the technologist. Total images: 821 Radiation optimization: All CT scans at this facility use at least one of these dose optimization techniques: automated exposure control; mA and/or kV adjustment per patient size (includes targeted exams where dose is matched to clinical indication); or iterative reconstruction. Contrast material: OMNIPAQUE 350; Contrast volume: 100 ml; Contrast route: INTRAVENOUS (IV); COMPARISON: CT CHEST WITHOUT CONTRAST 08/11/2021 2:43 PM FINDINGS: Thyroid: Subcentimeter right thyroid lobe nodule. Lungs: Discoid atelectasis versus scarring bilateral lower lobes, right middle lobe and lingula. No consolidation. No parenchymal mass or suspicious pulmonary nodule. Pleural spaces: No pleural effusion or pneumothorax. Heart: No significant finding. Coronary arteries: Moderate coronary artery calcification. Lymph nodes: No mediastinal, hilar or axillary adenopathy. Vasculature: No aortic aneurysm or dissection. Liver: Moderate hepatic steatosis. Bones/joints: No significant bony abnormality. Soft tissues: No significant finding. IMPRESSION No intrathoracic occult malignancy. COMMENTS: Consistent with the [employer]'s Incidental Findings Committee white [...] DOCUMENT HAS BEEN ELECTRONICALLY SIGNED BY RAQUEL HOPKINS MD FOR ANY QUESTIONS OR CONCERNS REGARDING THIS REPORT PLEASE CALL [facility] [phone] us Maninder Li MD IM CT ORDERABLES Final Result * MISCELLANEOUS TEST, NEW HARMONY (02/18/2024 17:58 EDT) Pathologist [facility] Miscellaneous Test, Dillard SEE NOTE 02/26/2024 9:12 EDT [facility] Comment: Test ?Result ?Flag ??Unit ?RefValue Paraneoplastic Autoantibody Eval, S ??Interpretive Comments ? SEE NOTE ?A negative basic paraneoplastic evaluation result does not ?rule out all clinically relevant antibodies. If indicated, ?a comprehensive neurological phenotype-specific ?autoimmune/paraneoplastic evaluation (e.g. encephalopathy, ?movement disorders, myelopathy, or axonal neuropathy) ?should be considered ?[email or web address]/. ??These evaluations include screening cell-based assays ?optimized for detection of recently discovered antibodies. ??IFA Notes ? None. ?Amphiphysin Ab, S ? Negative ?Negative ? ADDITIONAL INFORMATION ?This test was developed and its performance characteristics ?determined by [facility] in a manner consistent with CLIA ?requirements. This test has not been cleared or approved by ?the U.S. Food and Drug Administration. ??AGNA-1, S ? Negative ?Negative ? ADDITIONAL INFORMATION ?This test was developed and its performance characteristics ?determined by [facility] in a manner consistent with CLIA ?requirements. This test has not been cleared or approved by ?the U.S. Food and Drug Administration. ??AMALIA-1, S ? Negative ?Negative ? ADDITIONAL INFORMATION ?This test was developed and its performance characteristics ?determined by [facility] in a manner consistent with CLIA ?requirements. This test has not been cleared or approved by ?the U.S. Food and Drug Administration. ??AMALIA-2, S ? Negative ?Negative ? ADDITIONAL INFORMATION ?This test was developed and its performance characteristics ?determined by [facility] in a manner consistent with CLIA ?requirements. This test has not been cleared or approved by ?the U.S. Food and Drug Administration. ??AMALIA-3, S ? Negative ?Negative ? ADDITIONAL INFORMATION ?This test was developed and its performance characteristics ?determined by [facility] in a manner consistent with CLIA ?requirements. This test has not been cleared or approved by ?the U.S. Food and Drug Administration. ??CRMP-5-IgG, S ? Negative ?Negative ? ADDITIONAL INFORMATION ?This test was developed and its performance characteristics ?determined by [facility] in a manner consistent with CLIA ?requirements. This test has not been cleared or approved by ?the U.S. Food and Drug Administration. ??Neuronal (V-G) K+ Channel Ab, S ? 0.00 ?nmol/L ??<=0.02 ? ADDITIONAL INFORMATION ?This test was developed and its performance characteristics ?determined by [facility] in a manner consistent with CLIA ?requirements. This test has not been cleared or approved by ?the U.S. Food and Drug Administration. ??P/Q-Type Calcium Channel Ab ? 0.00 ?nmol/L ??<=0.02 ? ADDITIONAL INFORMATION ?This test was developed and its performance characteristics ?determined by [facility] in a manner consistent with CLIA ?requirements. This test has not been cleared or approved by ?the U.S. Food and Drug Administration. ??CAN HANDLER-1, S ?Negative ?Negative ? ADDITIONAL INFORMATION ?This test was developed and its performance characteristics ?determined by [facility] in a manner consistent with CLIA ?requirements. This test has not been cleared or approved by ?the U.S. Food and Drug Administration. ??CAN HANDLER-2, S ?Negative ?Negative ? ADDITIONAL INFORMATION ?This test was developed and its performance characteristics ?determined by [facility] in a manner consistent with CLIA ?requirements. This test has not been cleared or approved by ?the U.S. Food and Drug Administration. ??CAN HANDLER-Tr, S ? Negative ?Negative ? ADDITIONAL INFORMATION ?This test was developed and its performance characteristics ?determined by [facility] in a manner consistent with CLIA ?requirements. This test has not been cleared or approved by ?the U.S. Food and Drug Administration. ?Test Performed by: ?[facility] ?[address] [place] [address] ?Tool Grinder Operator Surface: Kain Shay M.D. Ph.D.; CLIA# [id number] Blood VENOUS BLOOD / Unknown Venipuncture / Unknown 02/18/2024 17:58 EDT 02/18/2024 18:08 EDT us Victorina Macedo PA-C CHEMISTRY & BLOOD GAS ORDERAB LES Final Result [facility] [address] [place] [address] * MISCELLANEOUS TEST, ASEAL (02/18/2024 17:58 EDT) Miscellaneous Test, Asael SEE NOTE 02/29/2024 9:12 EDT [facility] Comment: Test ? Result ? Flag ??Unit ??RefValue CIDP/SOCIAL SCIENCES RESEARCH SCIENTIST Evaluation, S ??CIDP/SOCIAL SCIENCES RESEARCH SCIENTIST Interpretation, S ?SEE NOTE ?A negative result doesn't exclude an immune-mediated ?demyelinating neuropathy. These results should be ?interpreted in the appropriate clinical context. ??Contactin-1 IgG CBA, S ? Negative ? Negative ? ADDITIONAL INFORMATION ?This test was developed and its performance characteristics ?determined by [facility] in a manner consistent with CLIA ?requirements. This test has not been cleared or approved by ?the U.S. Food and Drug Administration. ??Neurofascin-155 IgG4, S ?Negative ? Negative ? ADDITIONAL INFORMATION ?This test was developed and its performance characteristics ?determined by [facility] in a manner consistent with CLIA ?requirements. This test has not been cleared or approved by ?the U.S. Food and Drug Administration. ?Test Performed by: ?[facility] ?[address] [id number] ?Tool Grinder Operator Surface: Kain Shay M.D. Ph.D.; CLIA# [id number] Blood VENOUS BLOOD / Unknown Venipuncture / Unknown 02/18/2024 17:58 EDT 02/18/2024 18:08 EDT Victorina CRAWFORD-C CHEMISTRY & BLOOD GAS ORDERAB LES Final Result Performing Organization Address [facility] de Phone Number [facility] [address] [place] [address] * ANTI SJOGREN'S (SSA/SSB) (02/18/2024 17:58 EDT) Pathologist [facility] SS-A/Ro Ab, IgG, S <0.2 <1.0 (Negative ) U 02/19/2024 17:47 EDT [facility] SS-B/La Ab, IgG, S <0.2 <1.0 (Negative ) U 02/19/2024 17:47 EDT [facility] Comment: Test Performed by: [facility] [address] [place] [address] Tool Grinder Operator Surface: Kain Shay M.D. Ph.D.; CLIA# [id number] Blood VENOUS BLOOD / Unknown Venipuncture / Unknown 02/18/2024 17:58 EDT 02/18/2024 18:08 EDT Victorina Macedo PA-C CHEMISTRY & BLOOD GAS ORDERAB LES Final Result Performing Organization Address [facility] Co de Phone Number [address] [address] * (ABNORMAL) POCT GLUCOSE, INTERFACED (02/18/2024 11:18 EDT) Glucose, POC 129(H) 70 - 100 mg/dL 02/18/2024 11:28 EDT [facility] HN LAB POC COMMENT (GLUCOSE) Test Performed in [facility] 02/18/2024 11:28 EDT [facility] Blood CAPILLARY BLOOD / Unknown 02/18/2024 11:18 EDT 02/18/2024 11:28 EDT Victorina Macedo PA-C POINT OF CARE TEST ORDERABLES Final Result [facility] [address] [place] [address] * WEST N[place] VIRUS (WNV) AB,IGG,IGM,CSF (02/18/2024 10:23 EDT) West Nile Virus Ab, IgG, CSF Negative Negative 02/21/2024 13:26 EDT [facility] West Nile Virus Ab, IgM, CSF Negative Negative 02/21/2024 13:26 EDT [facility] West Nile CSF Interpretation SEE NOTE 02/21/2024 13:26 EDT [facility] Comment: No antibodies to WNV detected. ??Repeat testing in 10-14 days if clinical suspicion persists. ADDITIONAL INFORMATION This test has been modified from the lawyers's instructions. Its performance characteristics were determined by [facility] in a manner consistent with CLIA requirements. This test has not been cleared or approved by the U.S. Food and Drug Administration. Test Performed by: [facility] - [address] [address] Tool Grinder Operator Surface: Kain Shay M.D. Ph.D.; CLIA# [id number] Fluid CEREBROSPINAL FLUID / Unknown 02/18/2024 10:23 EDT 02/18/2024 15:20 EDT Victorina Macedo PA-C IMMUNOLOGY AND SEROLOGY ORDER [place] Final Result [facility] [address] [place] [address] * CELL COUNT, CSF (02/18/2024 10:23 EDT) RBC, CSF 1 /cmm 02/18/2024 12:07 EDT [facility] Nucleated Cells, CSF 02/18/2024 12:07 EDT [facility] Comment:None Seen Total Volume CSF 10.0 ml 02/18/2024 12:07 EDT [facility] Tube Cntd. 4 02/18/2024 12:07 EDT [facility] Comment, CSF Clear and colorless 02/18/2024 12:07 EDT [facility] Tube Vol. 3.0 ml 02/18/2024 12:07 EDT [facility] Fluid CEREBROSPINAL FLUID / Unknown 02/18/2024 10:23 EDT 02/18/2024 11:47 EDT Victorina Macedo PA-C HEMATOLOGY & PF4 ORDERABLES F inal Result [facility] [address] [place] [address] * (ABNORMAL) BACTERIAL CULTURE/SMEAR (02/18/2024 10:23 EDT) Organism ID Growth in broth only Bacillus species, not anthracis(AA) VITEK SUSCEPTIBILITY 02/21/2024 9:12 EDT [facility] Comment: Smear Neutrophils Present(A) 02/21/2024 9:12 EDT [facility] Smear No bacteria seen(A) 02/21/2024 9:12 EDT [facility] Comment:Fluid Processed afte r centrifugation Fluid CEREBROSPINAL FLUID / Unknown 02/18/2024 10:23 EDT 02/18/2024 11:47 EDT Victorina Macedo PA-C MICROBIOLOGY - GENERAL ORDERA BLES Final Result [facility] [address] [place] [address] * ENTEROVIRUS MOLECULAR DETECTION PCR, CSF (02/18/2024 10:23 EDT) Enterovirus PCR Rslt (ENVRES) Negative Negative 02/19/2024 0:02 EDT [facility] Fluid CEREBROSPINAL FLUID / Unknown 02/18/2024 10:23 EDT 02/18/2024 11:49 EDT Victorina Macedo PA-C MICROBIOLOGY - GENERAL ORDERA BLES Final Result Performing Organization Address [facility] Co de Phone Number [facility] [address] [place] [address] * HSV (HERPES SIMPLEX VIRUS) MOLECULAR DETECTION, PCR (02/18/2024 10:23 EDT) Herpes Simplex Virus Molecular Detection 1, PCR Negative Negative 02/19/2024 7:03 EDT [facility] Herpes Simplex Virus Molecular Detection 2, PCR Negative Negative 02/19/2024 7:03 EDT [facility] Fluid CEREBROSPINAL FLUID / Unknown 02/18/2024 10:23 EDT 02/18/2024 11:49 EDT Narrative [facility] - 02/19/2024 7:03 EDT This test was developed and its performance characteristics determined by [facility]. It has not been cleared or approved by the US Food and Drug Administration. FDA does not require this test to go through premarket FDA review. This test is used for clinical purposes. It should not be regarded as investigational or research. This laboratory is certified under the Clinical Laboratory Improvement Amendments (CLIA) as qualified to perform high complexity clinical laboratory testing. Victorina Macedo PA-C MICROBIOLOGY - GENERAL ORDERA BLES Final Result Performing Organization Address City/[facility]/ZIP Co de Phone Number [facility] [address], [place] [address] * VARICELLA ZOSTER VIRUS MOLECULAR DETECTION, PCR (02/18/2024 10:23 EDT) Pathologist [facility] VARICELLA ZOSTER VIRUS MOLECULAR DETECTION, PCR Negative Negative, Invalid 02/19/2024 7:03 EDT [facility] Comment: This test was developed and its performance characteristics determined by [facility]. It has not been cleared or approved by the US Food and Drug Administration. FDA does not require this test to go through premarket FDA review. This test is used for clinical purposes. It should not be regarded as investigational or research. This laboratory is certified under the Clinical Laboratory Improvement Amendments (CLIA) as qualified to perform high complexity clinical laboratory testing. Fluid CEREBROSPINAL FLUID / Unknown 02/18/2024 10:23 EDT 02/18/2024 11:49 EDT Victorina Macedo PA-C MICROBIOLOGY - GENERAL ORDERA BLES Final Result Performing Organization Address City/[facility]/ZIP Co de Phone Number [facility] [address] [place] [address] * GLUCOSE CSF (02/18/2024 10:23 EDT) Pathologist [facility] Glucose, CSF 56 See Note mg/dL 02/18/2024 12:44 EDT [facility] Comment: NOTE: Reference range for Glucose in CSF: 60% - 80% of the Serum/Plasma Glucose Fluid CEREBROSPINAL FLUID / Unknown 02/18/2024 10:23 EDT 02/18/2024 11:47 EDT Victorina Macedo PA-C GEN LAB UNIT COLLECT ORDERABL ES Final Result Performing Organization Address City/[facility]/ZIP Co de Phone Number [facility] [address] [place] [address] * (ABNORMAL) TOTAL PROTEIN, CSF (02/18/2024 10:23 EDT) Pathologist [facility] Total Protein, CSF 264(H) 12 - 45 mg/dL 02/18/2024 12:44 EDT [facility] Fluid CEREBROSPINAL FLUID / Unknown 02/18/2024 10:23 EDT 02/18/2024 11:47 EDT Victorina Macedo PA-C GEN LAB UNIT COLLECT ORDERABL ES Final Result Performing Organization Address [facility]/ZIP Co de Phone Number [facility] [address] [place] [address] * HIV 1/2 ANTIGEN AND ANTIBODY, 4TH GENERATION (02/18/2024 6:30 EDT) Pathologist [facility] HIV 1 and 2 Antibody/p24 Antigen, 4th Generation Negative Negative 02/18/2024 19:19 EDT [facility] Comment:If acute HIV-1 infec tion is suspected in a high risk patient, submit plasma specimen for HIV-1 RNA quantitation test. Blood VENOUS BLOOD / Unknown Venipuncture / Unknown 02/18/2024 6:30 EDT 02/18/2024 16:48 EDT Victorina Macedo PA-C IMMUNOLOGY AND SEROLOGY ORDER [place] Final Result Performing Organization Address [facility] Co de Phone Number [facility] [address] [place] [address] * HEPATITIS C AB W REFLEX TO HCV RNA BY PCR (02/18/2024 6:30 EDT) [facility] Hep C Antibody Negative Negative 02/18/2024 17:50 EDT [facility] Blood VENOUS BLOOD / Unknown Venipuncture / Unknown 02/18/2024 6:30 EDT 02/18/2024 6:43 EDT Victorina Macedo PA-C CHEMISTRY & BLOOD GAS ORDERAB LES Final Result Performing Organization Address [facility]/ZIP Co de Phone Number [facility] [address] [place] [address] * HEPATITIS B PROFILE (02/18/2024 6:30 EDT) [facility] Hep B Surface Ag Negative Negative 02/18/20 19:19 EDT [facility] Hep B Surface Ab, Quantitative 270.0 See Note mIU/mL 02/18/2024 19:19 EDT [facility] Comment: Reference Range for Hep B Surface Ab, Quant: Positive: >= 10.0 mIU/mL Negative: ??< 10.0 mIU/mL Patient is presumed to be immune to infection with Hepatitis B Virus. Hep B Surface Ab, Qualitative Positive See Note 02/18/2024 19:19 EDT [facility] Comment: Reference Range for Hep B Surface Ab, Qual: Unvaccinated: ??Negative Vaccinated: ??Positive Hepatitis B Core Ab, Total Non-reactive Non-reactiv e 02/18/2024 19:19 EDT [facility] Blood VENOUS BLOOD / Unknown Venipuncture / Unknown 02/18/2024 6:30 EDT 02/18/2024 16:48 EDT Victorina Macedo PA-C CHEMISTRY & BLOOD GAS ORDERAB LES Final Result Performing Organization Address [facility]/ZIP Co de Phone Number [facility] [address] [place] [address] * HOLD LAVENDER TOP (02/18/2024 6:30 EDT) Hold Hold 02/18/2024 7:4 5 EDT [facility] Blood VENOUS BLOOD / Unknown Venipuncture / Unknown 02/18/2024 6:30 EDT 02/18/2024 6:43 EDT Victorina Macedo PA-C LAB INFO SERVICE AND SUPPORT & PHONE RESULT Final Result Performing Organization Address City/[facility] Co de Phone Number [facility] [address] [place] [address] * (ABNORMAL) BASIC METABOLIC PANEL (BMP) (02/18/2024 6:30 EDT) Sodium 131(L) 136 - 145 mmol/L 02/18/2024 7:22 EDT [facility] Potassium 4.1 3.5 - 5.0 mmol/L 02/18/2024 7:22 EDT [facility] Chloride 102 96 - 110 mmol/L 02/18/2024 7:22 [facility] CO2 Total 24 22 - 32 mmol/L 02/18/2024 7:22 [facility] Anion Gap 5 5 - 14 mmol/L 02/18/2024 7:22 [facility] Glucose 109(H) 70 - 99 mg/dl 02/18/2024 7:22 [facility] Calcium 8.7 8.5 - 10.5 mg/dL 02/18/2024 7:22 [facility] BUN 14 10 - 26 mg/dL 02/18/2024 7:22 [facility] Creatinine 0.54 0.52 - 1.04 mg/dL 02/18/2024 7:22 [facility] eGFR 108 >60 mL/min/1.73 m2 02/18/2024 7:22 [facility] Blood VENOUS BLOOD / Unknown Venipuncture / Unknown 02/18/2024 6:30 EDT 02/18/2024 6:43 EDT Apolinar Diallo MD CHEMISTRY & BLOOD GAS ORDERABL ES Final Result Performing Organization Address [facility] Co de Phone Number [facility] [address] [place] [address] * MAGNESIUM (02/18/2024 6:30 EDT) Pathologist [facility] Magnesium 1.9 1.7 - 2.8 mg/dL 02/18/2024 7:22 EDT [facility] Blood VENOUS BLOOD / Unknown Venipuncture / Unknown 02/18/2024 6:30 EDT 02/18/2024 6:43 EDT us Apolinar Diallo MD CHEMISTRY & BLOOD GAS ORDERABL ES Final Result Performing Organization Address [facility] Co de Phone Number [facility] [address] [place] [address] * GM1 AUTOANTIBODY (02/18/2024 6:30 EDT) IgG Monos. GM1 Negative Negative 02/25/2024 16:32 EDT [facility] Comment: ADDITIONAL INFORMATION This test was developed and its performance characteristics determined by [facility] in a manner consistent with CLIA requirements. This test has not been cleared or approved by the U.S. Food and Drug Administration. IgM Monos. GM1 Negative Negative 02/25/2024 16:32 [facility] Comment: ADDITIONAL INFORMATION This test was developed and its performance characteristics determined by [facility] in a manner consistent with CLIA requirements. This test has not been cleared or approved by the U.S. Food and Drug Administration. IgG Asialo. GM1 Negative Negative 4 16:32 [facility] Comment: ADDITIONAL INFORMATION This test was developed and its performance characteristics determined by [facility] in a manner consistent with CLIA requirements. This test has not been cleared or approved by the U.S. Food and Drug Administration. IgM Asialo. GM1 Negative Negative 4 16:32 [facility] Comment: ADDITIONAL INFORMATION This test was developed and its performance characteristics determined by [facility] in a manner consistent with CLIA requirements. This test has not been cleared or approved by the U.S. Food and Drug Administration. IgG Disialo. GD1b Negative Negative 024 16:32 [facility] Comment: ADDITIONAL INFORMATION This test was developed and its performance characteristics determined by [facility] in a manner consistent with CLIA requirements. This test has not been cleared or approved by the U.S. Food and Drug Administration. IgM Disialo. GD1b Negative Negative 024 16:32 EDT [facility] Comment: ADDITIONAL INFORMATION This test was developed and its performance characteristics determined by [facility] in a manner consistent with CLIA requirements. This test has not been cleared or approved by the U.S. Food and Drug Administration. Test Performed by: [address] [address] [employer] Surface: Kain Shay M.D. Ph.D.; CLIA# [id number] Blood VENOUS BLOOD / Unknown Venipuncture / Unknown 02/18/2024 6:30 EDT 02/18/2024 6:40 EDT Victorina Macedo PA-C IMMUNOLOGY AND SEROLOGY ORDER [place] Final Result [facility] [address] [place] [id number] * IGA (02/18/2024 6:30 EDT) Pathologist [facility] IgA 163 85 - 499 mg/dL 02/18/2024 14:33 EDT [facility] Blood VENOUS BLOOD / Unknown Venipuncture / Unknown 02/18/2024 6:30 EDT 02/18/2024 6:43 EDT Victorina Macedo PA-C CHEMISTRY & BLOOD GAS ORDERAB LES Final Result [facility] [address] [place] [id number] * (ABNORMAL) GLUCOSE, SERUM (02/17/2024 16:52 EDT) Glucose 109(H) 70 - 99 mg/dl 02/17/2024 17:15 EDT [facility] Blood VENOUS BLOOD / Unknown Venipuncture / Unknown 02/17/2024 16:52 EDT 02/17/2024 16:56 EDT us Victorina Macedo PA-C CHEMISTRY & BLOOD GAS ORDERAB LES Final Result Performing Organization Address City/[facility]/ZIP Co de Phone Number [facility] [address] [place] [address] * (ABNORMAL) BASIC METABOLIC PANEL (BMP) (02/17/2024 6:37 EDT) Sodium 131(L) 136 - 145 mmol/L 02/17/2024 7:29 EDT [facility] Potassium 4.1 3.5 - 5.0 mmol/L 02/17/2024 7:29 [facility] Chloride 105 96 - 110 mmol/L 02/17/2024 7:29 [facility] CO2 Total 24 22 - 32 mmol/L 02/17/2024 7:29 [facility] Anion Gap 2(L) 5 - 14 mmol/L 02/17/2024 7:29 [facility] Glucose 109(H) 70 - 99 mg/dl 02/17/2024 7:29 [facility] Calcium 8.9 8.5 - 10.5 mg/dL 02/17/2024 7:29 [facility] BUN 15 10 - 26 mg/dL 02/17/2024 7:29 [facility] Creatinine 0.53 0.52 - 1.04 mg/dL 02/17/2024 7:29 [facility] eGFR 108 >60 mL/min/1.73 m2 02/17/2024 7:29 [facility] Blood VENOUS BLOOD / Unknown Venipuncture / Unknown 02/17/2024 6:37 EDT 02/17/2024 6:47 EDT us Apolinar Diallo MD CHEMISTRY & BLOOD GAS ORDERABL ES Final Result Performing Organization Address City/[facility]/ZIP Co de Phone Number [facility] [address] [place] [address] * (ABNORMAL) MAGNESIUM (02/17/2024 6:37 EDT) Pathologist [facility] Magnesium 1.6(L) 1.7 - 2.8 mg/dL 02/17/2024 7:29 EDT [facility] Blood VENOUS BLOOD / Unknown Venipuncture / Unknown 02/17/2024 6:37 EDT 02/17/2024 6:47 EDT Apolinar Diallo MD CHEMISTRY & BLOOD GAS ORDERABL ES Final Result Performing Organization Address [facility]/ZIP Co de Phone Number [facility] [address] [place] [address] * (ABNORMAL) HOMOCYSTEINE (02/17/2024 6:37 EDT) [facility] Homocysteine 34.4(H) 5.0 - 13.9 umol/L 02/17/2024 14:29 EDT [facility] Comment:Results may be false ly elevated if sample is not collected on ice or is not removed from cells within 1 hour of collection. Blood VENOUS BLOOD / Unknown Venipuncture / Unknown 02/17/2024 6:37 EDT 02/17/2024 6:46 EDT Narrative [facility] - 02/17/2024 14:29 EDT Reference range may not apply to non-fasting samples. ??It is not recommended that EDTA plasma and serum from the same patient be used interchangeably. ??Serum concentrations have been observed to be up to 10% higher than EDTA plasma. Reference range may not apply to serum results. Maninder Li MD CHEMISTRY & BLOOD GAS ORDERABLE S Final Result Performing Organization Address City/[facility]/ZIP Co de Phone Number [facility] [address] [place] [address] * METHYLMALONIC ACID (02/17/2024 6:37 EDT) Pathologist [facility] Methylmalonic Acid, QN, S 0.16 <=0.40 nmol/mL 02/20/2024 8:55 EDT [facility] Comment: ADDITIONAL INFORMATION This test was developed and its performance characteristics determined by [facility] in a manner consistent with CLIA requirements. This test has not been cleared or approved by the U.S. Food and Drug Administration. Test Performed by: [facility] [address] [id number] [employer] Gr[employer] Surface: Kain Shay M.D. Ph.D.; CLIA# [id number] Blood VENOUS BLOOD / Unknown Venipuncture / Unknown 02/17/2024 6:37 EDT 02/17/2024 6:47 EDT Maninder Li MD CHEMISTRY & BLOOD GAS ORDERABLE S Final Result Performing Organization Address [facility] [place] [address] * (ABNORMAL) INTRINSIC FACTOR ANTIBODY (02/17/2024 6:37 EDT) Intrinsic Factor Blocking Ab, S Positive( A) Negative 02/18/2024 15:27 EDT [facility] Comment SEE NOTE 02/18/2024 15:27 EDT [facility] Comment: Free B12 resulting from recent B12 injection can cause false elevation of Intrinsic Factor Blocking Antibody (IFBA) in this assay. If this is suspected, the Intrinsic Factor Blocking Antibody (IFBA) test should be repeated after at least two weeks from cessation of B12 injections in order to confirm the elevated IFBA result. Test Performed by: [facility] [address] [place] [address] [employer] Grinder Operator Surface: Kain Shay M.D. Ph.D.; CLIA# [id number] Blood VENOUS BLOOD / Unknown Venipuncture / Unknown 02/17/2024 6:37 EDT 02/17/2024 6:47 EDT us Maninder Li MD IMMUNOLOGY AND SEROLOGY ORDERAB LES Final Result Performing Organization Address [facility]/ZIP Co de Phone Number [address] [address] [place] [address] * MISCELLANEOUS TEST, NEW HARMONY (02/17/2024 6:36 EDT) Pathologist [facility] Miscellaneous Test, [place] SEE NOTE 02/19/2024 12:49 EDT [facility] Comment: Test ? Result ? Flag ??Unit ??RefValue West Nile Virus Ab, IgG and IgM, S ??West Nile Virus Ab, IgG, S ? Negative ? Negative ??West Nile Virus Ab, IgM, S ? Negative ? Negative ??West Nile Serum Interpretation ? SEE NOTE ?No antibodies to WNV detected. ??Repeat testing in 10-14 ?days if clinical suspicion persists. ?Test Performed by: ?[facility] ?[address] [place] [address] ?Tool Grinder Operator Surface: Kain Shay M.D. Ph.D.; CLIA# [id number] Blood VENOUS BLOOD / Unknown Venipuncture / Unknown 02/17/2024 6:36 EDT 02/17/2024 17:47 EDT us Victorina Macedo PA-C CHEMISTRY & BLOOD GAS ORDERAB LES Final Result [facility] [address] [place] [address] * ECG REPORT - SCANNED (02/17/2024 6:25 EDT) 02/17/2024 6:25 EDT us Scan 2 Scorer Helper PROCEDURE/MINOR SURGICAL OR DERABLES Final Result * HOLD LAVENDER TOP (02/16/2024 8:25 EDT) Hold Hold 02/16/2024 9:3 1 EDT [facility] Blood VENOUS BLOOD / Unknown 02/16/2024 8:25 EDT 02/16/2024 8:25 EDT us Noreen Montez RESORT MANAGER LAB INFO SERVICE AND SUPPO RT & PHONE RESULT Final Result Performing Organization Address City/[facility]/ZIP Co de Phone Number [facility] [address] [place] [address] * FOLATE (02/16/2024 7:55 EDT) Pathologist [facility] Folate 5.03 >2.78 ng/mL 02/16/2024 11:27 EDT [facility] Blood VENOUS BLOOD / Unknown Venipuncture / Unknown 02/16/2024 7:55 EDT 02/16/2024 8:18 EDT Narrative [facility] - 02/16/2024 11:27 EDT The results of this assay can be falsely elevated due to the consumption of Biotin. us Maninder Li MD CHEMISTRY & BLOOD GAS ORDERABLE S Final Result [facility] [address] [place] [address] * VITAMIN B12 (02/16/2024 7:55 EDT) Pathologist [facility] Vitamin B12 729 211 - 911 pg/mL 02/16/2024 11:04 EDT [facility] Blood VENOUS BLOOD / Unknown Venipuncture / Unknown 02/16/2024 7:55 EDT 02/16/2024 8:18 EDT Narrative [facility] - 02/16/2024 11:04 EDT The results of this assay can be falsely elevated due to the consumption of Biotin. us Maninder Li MD CHEMISTRY & BLOOD GAS ORDERABLE S Final Result Performing Organization Address City/[facility]/ZIP Co de Phone Number [facility] [address] [place] [address] * (ABNORMAL) BASIC METABOLIC PANEL (BMP) (02/16/2024 7:55 EDT) Sodium 132(L) 136 - 145 mmol/L [facility] Potassium 4.4 3.5 - 5.0 mmol/L [facility]24 [facility] Chloride 102 96 - 110 mmol/L 02/16/2024 8:45 [facility] CO2 Total 26 22 - 32 mmol/L 02/16/2024 8:45 [facility] Anion Gap 4(L) 5 - 14 mmol/L 02/16/2024 8:45 [facility] Glucose 108(H) 70 - 99 mg/dl 02/16/2024 8:45 [facility] Calcium 8.7 8.5 - 10.5 mg/dL 02/16/2024 8:45 [facility] BUN 13 10 - 26 mg/dL 02/16/2024 8:45 [facility] Creatinine 0.53 0.52 - 1.04 mg/dL 02/16/2024 8:45 [facility] eGFR 108 >60 mL/min/1.73 m2 02/16/2024 8:45 [facility] Blood VENOUS BLOOD / Unknown Venipuncture / Unknown 02/16/2024 7:55 EDT 02/16/2024 8:18 EDT us Apolinar Diallo MD CHEMISTRY & BLOOD GAS ORDERABL ES Final Result [facility] [address] [place] [address] * MAGNESIUM (02/16/2024 7:55 EDT) Pathologist [facility] Magnesium 1.8 1.7 - 2.8 mg/dL 02/16/2024 8:45 EDT [facility] Blood VENOUS BLOOD / Unknown Venipuncture / Unknown 02/16/2024 7:55 EDT 02/16/2024 8:18 EDT us Apolinar Diallo MD CHEMISTRY & BLOOD GAS ORDERABL ES Final Result Performing Organization Address [facility] Co de Phone Number [facility] [address] [place] [address] * HOLD LAVENDER TOP (02/15/2024 6:39 EDT) Hold Hold 02/15/2024 9:0 1 EDT [facility] Blood VENOUS BLOOD / Unknown Venipuncture / Unknown 02/15/2024 6:39 EDT 02/15/2024 7:51 EDT us Claus De MD LAB INFO SERVICE AND SUPPORT & PHONE RESULT Final Result Performing Organization Address [facility] Co de Phone Number [facility] [address] [place] [address] * (ABNORMAL) BASIC METABOLIC PANEL (BMP) (02/15/2024 6:39 EDT) Pathologist [facility] Sodium 133(L) 136 - 145 mmol/L 02/15/2024 7:35 EDT [facility] Potassium 4.0 3.5 - 5.0 mmol/L 02/15/2024 7:35 EDT [facility] Chloride 106 96 - 110 mmol/L 02/15/2024 7:35 EDT [facility] CO2 Total 25 22 - 32 mmol/L 02/15/2024 7:35 EDT [facility] Anion Gap 2(L) 5 - 14 mmol/L 02/15/2024 7:35 EDT [facility] Glucose 104(H) 70 - 99 mg/dl 02/15/2024 7:35 EDT [facility] Calcium 8.8 8.5 - 10.5 mg/dL 02/15/2024 7:35 EDT [facility] BUN 14 10 - 26 mg/dL 02/15/2024 7:35 EDT [facility] Creatinine 0.56 0.52 - 1.04 mg/dL 02/15/2024 7:35 EDT [facility] eGFR 107 >60 mL/min/1.73 m2 02/15/2024 7:35 EDT [facility] Blood VENOUS BLOOD / Unknown Venipuncture / Unknown 02/15/2024 6:39 EDT 02/15/2024 7:02 EDT us Apolinar Diallo MD CHEMISTRY & BLOOD GAS ORDERABL ES Final Result Performing Organization Address [facility] Co de Phone Number [facility] [address] [place] [address] * MAGNESIUM (02/15/2024 6:39 EDT) Magnesium 1.7 1.7 - 2.8 mg/dL 02/15/2024 7:35 EDT [facility] Blood VENOUS BLOOD / Unknown Venipuncture / Unknown 02/15/2024 6:39 EDT 02/15/2024 7:02 EDT us Apolinar Diallo MD CHEMISTRY & BLOOD GAS ORDERABL ES Final Result Performing Organization Address [facility] Co de Phone Number [facility] [address] [place] [address] * MR HEAD WO CONTRAST (02/14/2024 16:39 EDT) Anatomical Region Laterality Modality Head Magnetic Resonan ce 02/14/2024 16:1 3 EDT Addenda Addendum by Xuan Johnson DO on 02/14/2024 17:58 EDT THIS REPORT CONTAINS FINDINGS THAT MAY BE CRITICAL TO PATIENT CARE. The findings were verbally communicated via telephone conference with NOREEN MONTEZ at 5:58 PM EDT on 02/14/2024. The findings were acknowledged and understood. THIS DOCUMENT HAS BEEN ELECTRONICALLY SIGNED BY XUAN JOHNSON DO FOR ANY QUESTIONS OR CONCERNS REGARDING THIS REPORT PLEASE CALL [facility] AT [phone] Impressions 02/14/2024 17:30 EDT No acute intracranial abnormality. Left temporal and parietal chronic postsurgical changes. THIS DOCUMENT HAS BEEN ELECTRONICALLY SIGNED BY XUAN JOHNSON DO FOR ANY QUESTIONS OR CONCERNS REGARDING THIS REPORT PLEASE CALL [facility] AT [phone] Narrative 02/14/2024 17:30 EDT PROCEDURE INFORMATION: Exam: MR Head Without Contrast Exam date and time: 02/14/2024 4:13 PM Age: 54 years old Clinical indication: Other: Progressive weakness right greater than left; Prior surgery; Surgery date: 6+ months; Surgery type: Craniotomy TECHNIQUE: Imaging protocol: Magnetic resonance imaging of the head without contrast. 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 Gliosis in the left temporal lobe. Hemosiderin staining in the left temporal lobe from prior surgery. Cerebral ventricles: Normal. No ventriculomegaly. Bones/joints: Prior left temporal craniotomy. Paranasal sinuses: Normal as visualized. No acute sinusitis. Mastoid air cells: Normal as visualized. No mastoid effusion. Orbital cavities: Unremarkable. Soft tissues: Unremarkable. Procedure Note Xuan Johnson DO - 02/14/2024 PROCEDURE INFORMATION: Exam: MR Head Without Contrast Exam date and time: 02/14/2024 4:13 PM Age: 54 years old Clinical indication: Other: Progressive weakness right greater than left; Prior surgery; Surgery date: 6+ months; Surgery type: Craniotomy TECHNIQUE: Imaging protocol: Magnetic resonance imaging of the head without contrast. 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 Gliosis in the left temporal lobe. Hemosiderin staining in the left temporal lobe from prior surgery. Cerebral ventricles: Normal. No ventriculomegaly. Bones/joints: Prior left temporal craniotomy. Paranasal sinuses: Normal as visualized. No acute sinusitis. Mastoid air cells: Normal as visualized. No mastoid effusion. Orbital cavities: Unremarkable. Soft tissues: Unremarkable. IMPRESSION No acute intracranial abnormality. Left temporal and parietal chronic postsurgical changes. THIS DOCUMENT HAS BEEN ELECTRONICALLY SIGNED BY XUAN JOHNSON DO FOR ANY QUESTIONS OR CONCERNS REGARDING THIS REPORT PLEASE CALL [facility] [phone] Noreen Montez RESORT MANAGER IMG MRI ORDERABLES Edited Result - Final * MR CERVICAL SPINE WO CONTRAST (02/14/2024 16:39 EDT) Anatomical Region Laterality Modality Spine Magnetic Resonan ce 02/14/2024 16:1 3 EDT Addenda Addendum by Forrest Duarte MD on 02/14/2024 19:54 EDT THIS REPORT CONTAINS FINDINGS THAT MAY BE CRITICAL TO PATIENT CARE. The findings were verbally communicated via telephone conference with Dr. Queen at 7:54 PM EDT on 02/14/2024. The findings were acknowledged and understood. THIS DOCUMENT HAS BEEN ELECTRONICALLY SIGNED BY FORREST DUARTE MD FOR ANY QUESTIONS OR CONCERNS REGARDING THIS REPORT PLEASE CALL [facility] AT [phone] Impressions 02/14/2024 19:36 EDT Unremarkable cervical spine MRI. THIS DOCUMENT HAS BEEN ELECTRONICALLY SIGNED BY FORREST DUARTE MD FOR ANY QUESTIONS OR CONCERNS REGARDING THIS REPORT PLEASE CALL [facility] AT [phone] Narrative 02/14/2024 19:36 EDT PROCEDURE INFORMATION: Exam: MR Cervical Spine Without Contrast Exam date and time: 02/14/2024 4:35 PM Age: 54 years old Clinical indication: Other: Weakness left arm TECHNIQUE: Imaging protocol: Magnetic resonance imaging of the cervical spine without contrast. COMPARISON: MR HEAD WO CSPINE WO 02/14/2024 4:13 PM FINDINGS: Bones/joints: Unremarkable. No fracture. Normal alignment. Spinal cord: Normal signal. No cord compression. C2-C3: No significant disc bulge or herniation. No severe spinal canal stenosis. No significant neural foraminal narrowing. C3-C4: No significant disc bulge or herniation. No severe spinal canal stenosis. No significant neural foraminal narrowing. C4-C5: No significant disc bulge or herniation. No severe spinal canal stenosis. No significant neural foraminal narrowing. C5-C6: No significant disc bulge or herniation. No severe spinal canal stenosis. No significant neural foraminal narrowing. C6-C7: No significant disc bulge or herniation. No severe spinal canal stenosis. No significant neural foraminal narrowing. C7-T1: No significant disc bulge or herniation. No severe spinal canal stenosis. No significant neural foraminal narrowing. Soft tissues: Unremarkable. Vasculature: Expected flow voids in the vertebral arteries. Procedure Note Forrest Duarte MD - 02/14/2024 PROCEDURE INFORMATION: Exam: MR Cervical Spine Without Contrast Exam date and time: 02/14/2024 4:35 PM Age: 54 years old Clinical indication: Other: Weakness left arm TECHNIQUE: Imaging protocol: Magnetic resonance imaging of the cervical spine without contrast. COMPARISON: MR HEAD WO CSPINE WO 02/14/2024 4:13 PM FINDINGS: Bones/joints: Unremarkable. No fracture. Normal alignment. Spinal cord: Normal signal. No cord compression. C2-C3: No significant disc bulge or herniation. No severe spinal canal stenosis. No significant neural foraminal narrowing. C3-C4: No significant disc bulge or herniation. No severe spinal canal stenosis. No significant neural foraminal narrowing. C4-C5: No significant disc bulge or herniation. No severe spinal canal stenosis. No significant neural foraminal narrowing. C5-C6: No significant disc bulge or herniation. No severe spinal canal stenosis. No significant neural foraminal narrowing. C6-C7: No significant disc bulge or herniation. No severe spinal canal stenosis. No significant neural foraminal narrowing. C7-T1: No significant disc bulge or herniation. No severe spinal canal stenosis. No significant neural foraminal narrowing. Soft tissues: Unremarkable. Vasculature: Expected flow voids in the vertebral arteries. IMPRESSION Unremarkable cervical spine MRI. THIS DOCUMENT HAS BEEN ELECTRONICALLY SIGNED BY FORREST DUARTE MD FOR ANY QUESTIONS OR CONCERNS REGARDING THIS REPORT PLEASE CALL [facility] [phone] us Noreen Montez RESORT MANAGER IMG MRI ORDERABLES Edited Result - Final * EKG 12-LEAD (02/14/2024 10:56 EDT) 02/14/2024 10:5 6 EDT Narrative [facility] - 02/15/2024 23:04 EDT ? [facility] ? Test Date: ?2024-02-14 Pat Name: ? YNES WHITE ? Department: ? Room: ? 245 Gender: ? Female ? 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 [facility] : ?1970 ? Requested By: GUANACO STEPHENOT Order Number: [id number] ? Reading MD: ?? ABDELRAHMAN SPIVEY MD ? Measurements Intervals ?[place] ? Rate: ? 113 ?P: ?41 [place]: ? 130 ?QRS: ?14 QRSD: ? 66 ? T: ?44 QT: ? 336 ? QTc: ?460 ? Interpretive Statements Sinus tachycardia with occasional premature ventricular complexes Compared to ECG 01/28/2024 23:47:04 Ventricular premature complex(es) now present Sinus rhythm no longer present ST (T wave) deviation no longer present I reviewed the tracing and have either agreed or edited the findings in this report. Electronically Signed On 02-15-2024 23:04:09 EDT by ABDELRAHMAN SPIVEY MD. 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 Electronically Signed On 02-15-2024 23:04:09 EDT by JAYLA POP. Maninder Li MD CARDIAC ECG ORDERABLES Final Re sult [facility] * BACTERIAL CULTURE, BLOOD (02/14/2024 10:00 EDT) Organism ID No Growth at 5 days VITEK SUSCEPTIBILITY 02/19/2024 10:15 EDT [facility] Blood VENOUS BLOOD / Unknown Venipuncture / Unknown 02/14/2024 10:00 EDT 02/14/2024 10:14 EDT [facility] - GENERAL ORD ERABLES Final Result Performing Organization Address City/[facility]/ZIP Co de Phone Number [facility] [address] [place] [address] * BACTERIAL CULTURE, BLOOD (02/14/2024 10:00 EDT) Organism ID No Growth at 5 days VITEK SUSCEPTIBILITY 02/19/2024 10:15 EDT [facility] Blood VENOUS BLOOD / Unknown Venipuncture / Unknown 02/14/2024 10:00 EDT 02/14/2024 10:15 EDT [facility] MICRO[facility] - GENERAL ORD ERABLES Final Result Performing Organization Address City/[facility] Co de Phone Number [facility] [address] [place] [address] * (ABNORMAL) COMPLETE BLOOD COUNT (02/14/2024 10:00 EDT) WBC 4.53 4.00 - 12.40 K/cmm 02/14/2024 10:25 EDT [facility] RBC 3.56(L) 3.86 - 5.04 M/cmm 02/14/2024 10:25 EDT [facility] Hemoglobin 12.3 11.6 - 15.2 g/dL 02/14/2024 10:25 EDT [facility] HCT 35.2 34.9 - 44.4 % 02/14/2024 10:25 EDT [facility] MCV 99(H) 81 - 98 fL 02/14/2024 10:25 [facility] MCH 34.6(H) 26.7 - 33.3 pg 02/14/2024 10:25 [facility] MCHC 34.9 32.1 - 35.9 g/dL 02/14/2024 10:25 [facility] RDW-CV 15.8(H) <14.7 % 02/14/2024 10:25 [facility] RDW-SD 57.6(H) <50.4 fl 02/14/2024 10:25 [facility] PLT 150 141 - 377 K/cmm 02/14/2024 10:25 [facility] MPV 10.6 9.5 - 12.7 fL 02/14/2024 10:25 [facility] Blood VENOUS BLOOD / Unknown Venipuncture / Unknown 02/14/2024 10:00 EDT 02/14/2024 10:15 EDT us Noreen Montez RESORT MANAGER HEMATOLOGY & PF4 ORDERABLE S Final Result Performing Organization Address City/[facility]/ZIP Co de Phone Number [facility] [address] [place] [address] * TSH (02/14/2024 6:51 EDT) TSH 3.54 0.47 - 4.68 mIU/L 02/14/2024 17:19 EDT [facility] Blood VENOUS BLOOD / Unknown Venipuncture / Unknown 02/14/2024 6:51 EDT 02/14/2024 7:01 EDT Narrative [facility] - 02/14/2024 17:19 EDT The results of this assay can be falsely lowered due to the consumption of Biotin. us Maninder Li MD CHEMISTRY & BLOOD GAS ORDERABLE S Final Result Performing Organization Address City/[facility]/ZIP Co de Phone Number [facility] [address] [place] [address] * (ABNORMAL) CK (02/14/2024 6:51 EDT) [facility] CK <25(L) 30 - 135 U/L 02/14/2024 18:37 EDT [facility] Blood VENOUS BLOOD / Unknown Venipuncture / Unknown 02/14/2024 6:51 EDT 02/14/2024 7:01 EDT Noreen Montez RESORT MANAGER CHEMISTRY & BLOOD GAS ORDE RABLES Final Result Performing Organization Address City/[facility]/ZIP Co de Phone Number [facility] [address] [place] [address] * HOLD LAVENDER TOP (02/14/2024 6:51 EDT) [facility] Hold Hold 02/14/2024 8:1 5 EDT [facility] Blood VENOUS BLOOD / Unknown Venipuncture / Unknown 02/14/2024 6:51 EDT 02/14/2024 7:01 EDT Noreen Montez RESORT MANAGER LAB INFO SERVICE AND SUPPO RT & PHONE RESULT Final Result Performing Organization Address [facility]/ZIP Co de Phone Number [facility] [address] [place] [address] * (ABNORMAL) BASIC METABOLIC PANEL (BMP) (02/14/2024 6:51 EDT) [facility] Sodium 133(L) 136 - 145 mmol/L 02/14/2024 7:42 EDT [facility] Potassium 4.1 3.5 - 5.0 mmol/L 02/14/2024 7:42 EDT [facility] Chloride 104 96 - 110 mmol/L 02/14/2024 7:42 EDT [facility] CO2 Total 27 22 - 32 mmol/L 02/14/2024 7:42 EDT [facility] Anion Gap 2(L) 5 - 14 mmol/L 02/14/2024 7:42 EDT [facility] Glucose 107(H) 70 - 99 mg/dl 02/14/2024 7:42 EDT [facility] Calcium 8.6 8.5 - 10.5 mg/dL 02/14/2024 7:42 EDT [facility] BUN 10 10 - 26 mg/dL 02/14/2024 7:42 EDT [facility] Creatinine 0.58 0.52 - 1.04 mg/dL 02/14/2024 7:42 EDT [facility] eGFR 106 >60 mL/min/1.73 m2 02/14/2024 7:42 EDT [facility] Blood VENOUS BLOOD / Unknown Venipuncture / Unknown 02/14/2024 6:51 EDT 02/14/2024 7:01 EDT us Apolinar Diallo MD CHEMISTRY & BLOOD GAS ORDERABL ES Final Result Performing Organization Address City/[facility]/ZIP Co de Phone Number [facility] [address] [place] [address] * MAGNESIUM (02/14/2024 6:51 EDT) Magnesium 1.7 1.7 - 2.8 mg/dL 02/14/2024 7:42 EDT [facility] Blood VENOUS BLOOD / Unknown Venipuncture / Unknown 02/14/2024 6:51 EDT 02/14/2024 7:01 EDT us Apolinar Diallo MD CHEMISTRY & BLOOD GAS ORDERABL ES Final Result Performing Organization Address City/[facility]/ZIP Co de Phone Number [facility] [address] [place] [address] * (ABNORMAL) BASIC METABOLIC PANEL (BMP) (02/13/2024 6:11 EDT) Sodium 131(L) 136 - 145 mmol/L 02/13/2024 7:15 EDT [facility] Potassium 3.9 3.5 - 5.0 mmol/L 02/13/2024 7:15 EDT [facility] Chloride 103 96 - 110 mmol/L 02/13/2024 7:15 [facility] CO2 Total 27 22 - 32 mmol/L 02/13/2024 7:15 [facility] Anion Gap 1(L) 5 - 14 mmol/L 02/13/2024 7:15 [facility] Glucose 99 70 - 99 mg/dl 02/13/2024 7:15 [facility] Calcium 8.3(L) 8.5 - 10.5 mg/dL 02/13/2024 7:15 [facility] BUN 7(L) 10 - 26 mg/dL 02/13/2024 7:15 [facility] Creatinine 0.51(L) 0.52 - 1.04 mg/dL 02/13/2024 7:15 [facility] eGFR 109 >60 mL/min/1.73 m2 02/13/2024 7:15 [facility] Blood VENOUS BLOOD / Unknown Venipuncture / Unknown 02/13/2024 6:11 EDT 02/13/2024 6:42 EDT Apolinar Diallo MD CHEMISTRY & BLOOD GAS ORDERABL ES Final Result Performing Organization Address City/[facility]/ZIP Co de Phone Number [facility] [address] [place] [address] * MAGNESIUM (02/13/2024 6:11 EDT) Pathologist [facility] Magnesium 1.9 1.7 - 2.8 mg/dL 02/13/2024 7:15 EDT [facility] Blood VENOUS BLOOD / Unknown Venipuncture / Unknown 02/13/2024 6:11 EDT 02/13/2024 6:42 EDT Apolinar Diallo MD CHEMISTRY & BLOOD GAS ORDERABL ES Final Result Performing Organization Address City/[facility]/ZIP Co de Phone Number [facility] [address] [place] [address] * (ABNORMAL) COMPLETE BLOOD COUNT AND DIFFERENTIAL (02/13/2024 6:11 EDT) WBC 4.08 4.00 - 12.40 K/cmm 02/13/2024 6:52 [facility] RBC 3.35(L) 3.86 - 5.04 M/cmm 02/13/2024 6:52 [facility] Hemoglobin 11.6 11.6 - 15.2 g/dL 02/13/2024 6:52 [facility] HCT 33.1(L) 34.9 - 44.4 % 02/13/2024 6:52 [facility] MCV 99(H) 81 - 98 fL 02/13/2024 6:52 [facility] MCH 34.6(H) 26.7 - 33.3 pg 02/13/2024 6:52 [facility] MCHC 35.0 32.1 - 35.9 g/dL 02/13/2024 6:52 [facility] RDW-CV 15.9(H) <14.7 % 02/13/2024 6:52 [facility] RDW-SD 57.8(H) <50.4 fl 02/13/2024 6:52 [facility] PLT 125(L) 141 - 377 K/cmm 02/13/2024 6:52 [facility] MPV 10.7 9.5 - 12.7 fL 02/13/2024 6:52 [facility] % Neutrophils 60.7 % 02/13/2024 6:52 [facility] % Lymphocytes 32.8 % 02/13/2024 6:52 [facility] % Monocytes 5.4 % 02/13/2024 6:52 [facility] % Eosinophils 0.2 % 02/13/2024 6:52 [facility] % Basophils 0.2 % 02/13/2024 6:52 [facility] % Immature Grans 0.7 % 02/13/20 6:52 [facility] Absolute Neutrophils 2.47 2.20 - 8.85 K/cmm 02/13/2024 6:52 EDT [facility] Absolute Lymphocytes 1.34 1.09 - 3.30 K/cmm 02/13/2024 6:52 EDT [facility] Absolute Monocytes 0.22 0.10 - 0.80 K/cmm 02/13/2024 6:52 EDT [facility] Absolute Eosinophils 0.01(L) 0.03 - 0.61 K/cmm 02/13/2024 6:52 T [facility] ABS Basophils 0.01 0.01 - 0.11 K/cmm 02/13/2024 6:52 [facility] Absolute Immature Grans 0.03 0.00 - 0.06 K/cmm 02/13/2024 6:52 [facility] Type of Differential: Auto 02/13/2024 6:52 [facility] Blood VENOUS BLOOD / Unknown Venipuncture / Unknown 02/13/2024 6:11 EDT 02/13/2024 6:42 EDT us Greg Chavez MD PACKAGES & DNA PROBE ORDE TAY Final Result Performing Organization Address City/[facility]/ZIP Co de Phone Number [facility] [address] [place] [address] * (ABNORMAL) C REACTIVE PROTEIN (02/13/2024 6:11 EDT) C-Reactive Protein 26.1(H) <10.0 mg/L 02/13/2024 7:15 EDT [facility] Blood VENOUS BLOOD / Unknown Venipuncture / Unknown 02/13/2024 6:11 EDT 02/13/2024 6:42 EDT us Greg Chavez MD CHEMISTRY & BLOOD GAS ORD ERABLES Final Result Performing Organization Address City/[facility]/ZIP Co de Phone Number [facility] [address] [place] [address] * (ABNORMAL) BACTERIAL CULTURE, URINE (02/12/2024 18:38 EDT) Organism ID Greater than 100,000 CFU/ml Escherichia coli(A) VITEK SUSCEPTIBILITY 02/14/2024 7:28 EDT [facility] Comment: Cefazolin susceptibility results can be used to predict susceptibility results for the following oral cephalosporins when used for therapy of uncomplicated UTI's due to E.coli, K.pneumoniae and P.mirabilis: cefaclor, cefdinir, cefpodoxime, cefprozil, cefuroxime, cephalexin and loracarbef. ??Please note that only cefdinir, cefpodoxime, cefuroxime and cephalexin are on the [facility] [place]ary. Urine URINE SPECIMEN OBTAINED BY SINGLE CATHETERIZATION OF URINARY BLADDER / Unknown Urine Collect / Unknown 02/12/2024 18:38 EDT 02/12/2024 19:37 EDT Narrative Organism Antibiotic Method Susceptibility Escherichia coli Amoxicillin Clavulan ic acid VITEK SUSCEPTIBILITY <=2 ug/mL: Susceptible Escherichia coli Ampicillin VITEK SUSCEPTIBILITY 16 ug/mL: Intermediate Escherichia coli Ampicillin Sulbactam VITEK SUSCEPTIBI LITY <=2 ug/mL: Susceptible Escherichia coli Cefazolin VITEK SUSCEPTIBILITY <=4 ug/mL: Susceptible Escherichia coli Cefepime VITEK SUSCEPTIBILITY <=1 ug/mL: Susceptible Escherichia coli Ceftriaxone VITEK SUSCEPTIBILITY <=1 ug/mL: Susceptible Escherichia coli Ciprofloxacin VITEK SUSCEPTIBILITY <=0.25 ug/mL: Susceptible Escherichia coli Ertapenem VITEK SUSCEPTIBILITY <=0.5 ug/mL: Susceptible Escherichia coli Gentamicin VITEK SUSCEPTIBILITY <=1 ug/mL: Susceptible Escherichia coli Levofloxacin VITEK SUSCEPTIBILITY <=0.12 ug/mL: Susceptible Escherichia coli Nitrofurantoin VITEK SUSCEPTIBILITY <=16 ug/mL: Susceptible Escherichia coli Piperacillin Tazobactam VITEK SUSCEPT IBILITY <=4 ug/mL: Susceptible Escherichia coli Tobramycin VITEK SUSCEPTIBILITY <=1 ug/mL: Susceptible Escherichia coli Trimethoprim-Sulfame thox azole VITEK SUSCEPTIBILITY <=20 ug/mL: Susceptible us Greg Chavez MD MICROBIOLOGY - GENERAL OR DERABLES Final Result [facility] [address] [place] [address] * (ABNORMAL) UA SEDIMENT + REFLEX TO CULTURE (02/12/2024 18:38 EDT) Urine RBC Count, Manual 3 - 10(A) 0 - 2 Cells/HPF 02/12/2024 19:37 T [facility] Urine WBC Count 10 - 50(A) 0 - 3 Cells/HPF 02/12/2024 19:37 [facility] Urine Squamous Count, Manual Few(A) None Seen Cells/HPF 02/12/2024 19:37 [facility] Urine Hyaline Cast Count, Manual <=10 <=10 Casts/LPF 02/12/2024 19:37 [facility] Urine Bacteria Count, Manual Moderate(A ) None Seen Bacteria/H PF 02/12/2024 19:37 [facility] Urine URINE SPECIMEN OBTAINED BY SINGLE CATHETERIZATION OF URINARY BLADDER / Unknown Urine Collect / Unknown 02/12/2024 18:38 EDT 02/12/2024 18:47 EDT [facility] - 02/12/2024 19:37 EDT Urine Sediment Analysis results are unreliable on urines that are unrefrigerated for >2 hrs or refrigerated >8 hrs. A Urine Culture test has been reflexively ordered based on result criteria from the Urine Sediment Analysis. Greg Chavez MD URINALYSIS ORDERABLES Fin al Result Performing Organization Address City/State/[facility] Co de Phone Number [facility] [address] [place] [address] * (ABNORMAL) UA CASCADE TO CULTURE (02/12/2024 18:38 EDT) Color UA Yellow Colorless, Yellow 02/12/2024 19:34 [facility] Clarity UA Clear Clear 02/12/2024 19:34 [facility] Glucose UA Negative Negative mg/dL 02/12/2024 19:34 [facility] Bilirubin UA Negative Negative 02/12/2024 19:34 [facility] Ketones UA Negative Negative 02/12/2024 19:34 [facility] Specific Hematite, Urine 1.020 1.001 - 1.030 02/12/2024 19:34 [facility] Blood UA 1+(A) Negative 02/12/2024 19:34 [facility] pH, UA 6.5 <8.5 02/12/2024 19:34 [facility] Protein UA Negative Negative mg/dL 02/12/2024 19:34 [facility] Urobilinogen UA 1.0 0.2-1.0 mg/dL mg/dL 02/12/2024 19:34 [facility] Nitrite UA Negative Negative 02/12/2024 19:34 [facility] Leukocyte Esterase UA 1+(A) Negative 02/12/2024 19:34 [facility] Urine URINE SPECIMEN OBTAINED BY SINGLE CATHETERIZATION OF URINARY BLADDER / Unknown Urine Collect / Unknown 02/12/2024 18:38 EDT 02/12/2024 18:47 EDT us Greg Chavez MD URINALYSIS ORDERABLES Fin al Result Performing Organization Address City/State/[facility] Co de Phone Number [facility] [address] [place] [address] * (ABNORMAL) COMPLETE BLOOD COUNT AND DIFFERENTIAL (02/12/2024 6:23 EDT) WBC 4.82 4.00 - 12.40 K/cmm 02/12/2024 6:53 [facility] RBC 3.24(L) 3.86 - 5.04 M/cmm 02/12/2024 6:53 [facility] Hemoglobin 11.2(L) 11.6 - 15.2 g/dL 02/12/2024 6:53 [facility] HCT 33.0(L) 34.9 - 44.4 % 02/12/2024 6:53 [facility] MCV 102(H) 81 - 98 fL 02/12/2024 6:53 [facility] MCH 34.6(H) 26.7 - 33.3 pg 02/12/2024 6:53 [facility] MCHC 33.9 32.1 - 35.9 g/dL 02/12/2024 6:53 [facility] RDW-CV 16.8(H) <14.7 % 02/12/2024 6:53 [facility] RDW-SD 63.5(H) <50.4 fl 02/12/2024 6:53 [facility] PLT 122(L) 141 - 377 K/cmm 02/12/2024 6:53 [facility] MPV 10.9 9.5 - 12.7 fL 02/12/2024 6:53 [facility] % Neutrophils 66.3 % 02/12/2024 6:53 [facility] % Lymphocytes 25.7 % 02/12/2024 6:53 [facility] % Monocytes 6.8 % 02/12/2024 6:53 [facility] % Eosinophils 0.0 % 02/12/2024 6:53 [facility] % Basophils 0.2 % 02/12/2024 6:53 [facility] % Immature Grans 1.0 % 02/12/20 6:53 [facility] Absolute Neutrophils 3.19 2.20 - 8.85 K/cmm 02/12/2024 6:53 [facility] Absolute Lymphocytes 1.24 1.09 - 3.30 K/cmm 02/12/2024 6:53 [facility] Absolute Monocytes 0.33 0.10 - 0.80 K/cmm 02/12/2024 6:53 [facility] Absolute Eosinophils 0.00(L) 0.03 - 0.61 K/cmm 02/12/2024 6:53 [facility] ABS Basophils 0.01 0.01 - 0.11 K/cmm 02/12/2024 6:53 [facility] Absolute Immature Grans 0.05 0.00 - 0.06 K/cmm 02/12/2024 6:53 [facility] Type of Differential: Auto 02/12/2024 6:53 [facility] Blood VENOUS BLOOD / Unknown Venipuncture / Unknown 02/12/2024 6:23 EDT 02/12/2024 6:46 EDT us Greg Chavez MD PACKAGES & DNA PROBE JELANI CROSS Final Result [facility] [address] [place] [address] * (ABNORMAL) BASIC METABOLIC PANEL (BMP) (02/12/2024 6:22 EDT) Sodium 134(L) 136 - 145 mmol/L 02/12/2024 7:37 [facility] Potassium 4.0 3.5 - 5.0 mmol/L 02/12/2024 7:37 [facility] Chloride 107 96 - 110 mmol/L 02/12/2024 7:37 [facility] CO2 Total 26 22 - 32 mmol/L 02/12/2024 7:37 [facility] Anion Gap 1(L) 5 - 14 mmol/L 02/12/2024 7:37 [facility] Glucose 115(H) 70 - 99 mg/dl 02/12/2024 7:37 [facility] Calcium 8.4(L) 8.5 - 10.5 mg/dL 02/12/2024 7:37 [facility] BUN <3(L) 10 - 26 mg/dL 02/12/2024 7:37 [facility] Creatinine 0.53 0.52 - 1.04 mg/dL 02/12/2024 7:37 [facility] eGFR 108 >60 mL/min/1.73 m2 02/12/2024 7:37 [facility] Blood VENOUS BLOOD / Unknown Venipuncture / Unknown 02/12/2024 6:22 EDT 02/12/2024 6:47 EDT Apolinar Diallo MD CHEMISTRY & BLOOD GAS ORDERABL ES Final Result Performing Organization Address [facility] de Phone Number [facility] [address] [place] [address] * (ABNORMAL) MAGNESIUM (02/12/2024 6:22 EDT) Magnesium 1.6(L) 1.7 - 2.8 mg/dL 02/12/2024 7:37 EDT [facility] Blood VENOUS BLOOD / Unknown Venipuncture / Unknown 02/12/2024 6:22 EDT 02/12/2024 6:47 EDT Apolinar Diallo MD CHEMISTRY & BLOOD GAS ORDERABL ES Final Result Performing Organization Address [facility] Phone Number [facility] [address] [place] [address] * PHOSPHORUS (02/12/2024 6:22 EDT) Phosphorus 3.1 2.5 - 4.5 mg/dL 02/12/2024 7:37 EDT [facility] Blood VENOUS BLOOD / Unknown Venipuncture / Unknown 02/12/2024 6:22 EDT 02/12/2024 6:47 EDT Greg Chavez MD CHEMISTRY & BLOOD GAS ORD ERABLES Final Result Performing Organization Address [facility] de Phone Number [facility] [address] [place] [address] * XR ABDOMEN 1 VIEW (02/11/2024 13:08 EDT) Anatomical Region Laterality Modality Body Computed Radiogr aphy 02/11/2024 13:2 1 EDT Impressions 02/11/2024 13:21 EDT Persistent air-filled bowel loops, predominantly colonic loops. Degree of distention is slightly decreased compared to prior. No evidence of free air on the acquired views. [id number] Narrative 02/11/2024 13:21 EDT INDICATION: ileus/pseudoobstruction, abd pain; TECHNIQUE: Supine view of the abdomen COMPARISON: None. FINDINGS: Persistent air-filled, dilated colonic loops currently measuring up to approximately 8 cm. There are few additional suspected air-filled, distended small bowel loops. No free intraperitoneal air evident on the acquired views. Procedure Note Alexis Mix MD - 02/11/2024 INDICATION: ileus/pseudoobstruction, abd pain; TECHNIQUE: Supine view of the abdomen COMPARISON: None. FINDINGS: Persistent air-filled, dilated colonic loops currently measuringup to approximately 8 cm. There are few additional suspected air-filled,distended small bowel loops. No free intraperitoneal air evident on theacquired views. IMPRESSION Persistent air-filled bowel loops, predominantly colonic loops. Degree ofdistention is slightly decreased compared to prior. No evidence of freeair on the acquired views. [id number] Greg Chavez MD IMG DIAGNOSTIC IMAGING OR DERABLES Final Result * (ABNORMAL) BASIC METABOLIC PANEL (BMP) (02/11/2024 6:41 EDT) Sodium 141 136 - 145 mmol/L 02/11/2024 7:41 [facility] Potassium 3.8 3.5 - 5.0 mmol/L 02/11/2024 7:41 [facility] Chloride 110 96 - 110 mmol/L 02/11/2024 7:41 [facility] CO2 Total 25 22 - 32 mmol/L 02/11/2024 7:41 [facility] Anion Gap 6 5 - 14 mmol/L 02/11/2024 7:41 [facility] Glucose 103(H) 70 - 99 mg/dl 02/11/2024 7:41 [facility] Calcium 8.8 8.5 - 10.5 mg/dL 02/11/2024 7:41 [facility] BUN 3(L) 10 - 26 mg/dL 02/11/2024 7:41 [facility] Creatinine 0.64 0.52 - 1.04 mg/dL 02/11/2024 7:41 EDT [facility] eGFR 104 >60 mL/min/1.73 m2 02/11/2024 7:41 EDT [facility] Blood VENOUS BLOOD / Unknown Venipuncture / Unknown 02/11/2024 6:41 EDT 02/11/2024 6:49 EDT us Apolinar Diallo MD CHEMISTRY & BLOOD GAS ORDERABL ES Final Result Performing Organization Address [facility] Co de Phone Number [facility] [address] [place] [address] * (ABNORMAL) MAGNESIUM (02/11/2024 6:41 EDT) Pathologist [facility] Magnesium 1.6(L) 1.7 - 2.8 mg/dL 02/11/2024 7:41 EDT [facility] Blood VENOUS BLOOD / Unknown Venipuncture / Unknown 02/11/2024 6:41 EDT 02/11/2024 6:49 EDT us Apolinar Diallo MD CHEMISTRY & BLOOD GAS ORDERABL ES Final Result Performing Organization Address [facility] Phone Number [facility] [address] [place] [address] * (ABNORMAL) COMPLETE BLOOD COUNT AND DIFFERENTIAL (02/11/2024 6:41 EDT) WBC 5.14 4.00 - 12.40 K/cmm 02/11/2024 7:17 [facility] RBC 3.57(L) 3.86 - 5.04 M/cmm 02/11/2024 7:17 [facility] Hemoglobin 12.4 11.6 - 15.2 g/dL 02/11/2024 7:17 [facility] HCT 36.9 34.9 - 44.4 % 02/11/2024 7:17 [facility] MCV 103(H) 81 - 98 fL 02/11/2024 7:17 [facility] MCH 34.7(H) 26.7 - 33.3 pg 02/11/2024 7:17 [facility] MCHC 33.6 32.1 - 35.9 g/dL 02/11/2024 7:17 [facility] RDW-CV 17.6(H) <14.7 % 02/11/2024 7:17 [facility] RDW-SD 67.3(H) <50.4 fl 02/11/2024 7:17 [facility] PLT 117(L) 141 - 377 K/cmm 02/11/2024 7:17 [facility] MPV 10.7 9.5 - 12.7 fL 02/11/2024 7:17 [facility] % Neutrophils 63.8 % 02/11/2024 7:17 [facility] % Lymphocytes 25.3 % 02/11/2024 7:17 [facility] % Monocytes 7.2 % 02/11/2024 7:17 [facility] % Eosinophils 0.2 % 02/11/2024 7:17 [facility] % Basophils 0.4 % 02/11/2024 7:17 [facility] % Immature Grans 3.1 % 02/11/20 7:17 [facility] Absolute Neutrophils 3.28 2.20 - 8.85 K/cmm 02/11/2024 7:17 [facility] Absolute Lymphocytes 1.30 1.09 - 3.30 K/cmm 02/11/2024 7:17 [facility] Absolute Monocytes 0.37 0.10 - 0.80 K/cmm 02/11/2024 7:17 [facility] Absolute Eosinophils 0.01(L) 0.03 - 0.61 K/cmm 02/11/2024 7:17 [facility] ABS Basophils 0.02 0.01 - 0.11 K/cmm 02/11/2024 7:17 [facility] Absolute Immature Grans 0.16(H) 0.00 - 0.06 K/cmm 02/11/2024 7:17 EDT [facility] Type of Differential: Auto 02/11/2024 7:17 EDT [facility] Blood VENOUS BLOOD / Unknown Venipuncture / Unknown 02/11/2024 6:41 EDT 02/11/2024 6:49 EDT us Greg Chavez MD PACKAGES & DNA PROBE ORDE TAY Final Result Performing Organization Address [facility]/ZIP Co de Phone Number [facility] [address] [place] [address] * (ABNORMAL) POCT GLUCOSE, INTERFACED (02/10/2024 19:58 EDT) [facility] Glucose, POC 118(H) 70 - 100 mg/dL 02/10/2024 19:59 EDT [facility] HN LAB POC COMMENT (GLUCOSE) Test Performed in [address] [place] [address] 02/10/2024 19:59 EDT [facility] Blood CAPILLARY BLOOD / Unknown 02/10/2024 19:58 EDT 02/10/2024 19:59 EDT us Greg Chavez MD POINT OF CARE TEST ORDERA BLES Final Result Performing Organization Address [facility] Co de Phone Number [facility] [address] [place] [address] * XR ABDOMEN 2 VIEWS (02/10/2024 14:48 EDT) Anatomical Region Laterality Modality Body Computed Radiogr aphy 02/10/2024 15:2 2 EDT Impressions 02/10/2024 15:22 EDT Air-filled, distended colonic loops, slight interval increase in degree of distention. No free intraperitoneal air evident. [id number] Narrative 02/10/2024 15:22 EDT INDICATION: Colonic distention, constipation; TECHNIQUE: Supine and upright views of the abdomen COMPARISON: Radiographs 02/08/[address] 02/08/2027. FINDINGS: Again seen are air-filled dilated colonic loops, now measuring up to approximately 10 cm in the right upper quadrant, slightly increased compared to prior. There is no free intraperitoneal air. No significantly dilated small bowel loops are evident. The lung bases are clear.. Procedure Note Alexis Mix MD - 02/10/2024 INDICATION: Colonic distention, constipation; TECHNIQUE: Supine and upright views of the abdomen COMPARISON: Radiographs 02/08/[address] 02/08/2027. FINDINGS: Again seen are air-filled dilated colonic loops, now measuringup to approximately 10 cm in the right upper quadrant, slightly increasedcompared to prior. There is no free intraperitoneal air. No significantlydilated small bowel loops are evident. The lung bases are clear.. IMPRESSION Air-filled, distended colonic loops, slight interval increase in degree ofdistention. No free intraperitoneal air evident. [id number] us Elizabeth Ponce MD IMG DIAGNOSTIC IMAGING ORDERABLE S Final Result * SODIUM (02/10/2024 14:11 EDT) Sodium 145 136 - 145 mmol/L 02/10/2024 15:49 EDT [facility] Blood VENOUS BLOOD / Unknown Venipuncture / Unknown 02/10/2024 14:11 EDT 02/10/2024 15:32 EDT us Greg Chavez MD CHEMISTRY & BLOOD GAS ORD ERABLES Final Result [facility] [address] [place] [address] * MAGNESIUM (02/10/2024 6:50 EDT) Magnesium 2.1 1.7 - 2.8 mg/dL 02/10/2024 7:34 EDT [facility] Blood VENOUS BLOOD / Unknown Venipuncture / Unknown 02/10/2024 6:50 EDT 02/10/2024 7:06 EDT us Apolinar Diallo MD CHEMISTRY & BLOOD GAS ORDERABL ES Final Result [facility] [address] [place] [address] * (ABNORMAL) COMPLETE BLOOD COUNT (02/10/2024 6:50 EDT) WBC 4.86 4.00 - 12.40 K/cmm 02/10/2024 7:10 [facility] RBC 3.56(L) 3.86 - 5.04 M/cmm 02/10/2024 7:10 [facility] Hemoglobin 12.5 11.6 - 15.2 g/dL 02/10/2024 7:10 [facility] HCT 36.3 34.9 - 44.4 % 02/10/2024 7:10 [facility] MCV 102(H) 81 - 98 fL 02/10/2024 7:10 [facility] MCH 35.1(H) 26.7 - 33.3 pg 02/10/2024 7:10 [facility] MCHC 34.4 32.1 - 35.9 g/dL 02/10/2024 7:10 [facility] RDW-CV 17.4(H) <14.7 % 02/10/2024 7:10 [facility] RDW-SD 65.1(H) <50.4 fl 02/10/2024 7:10 [facility] PLT 151 141 - 377 K/cmm 02/10/2024 7:10 [facility] MPV 11.0 9.5 - 12.7 fL 02/10/2024 7:10 [facility] Blood VENOUS BLOOD / Unknown Venipuncture / Unknown 02/10/2024 6:50 EDT 02/10/2024 7:06 EDT us Joyce Argueta MD HEMATOLOGY & PF4 ORDERABL ES Final Result [facility] [address] [place] [address] * (ABNORMAL) COMPREHENSIVE METABOLIC PANEL (CMP) (02/10/2024 6:50 EDT) Sodium 146(H) 136 - 145 mmol/L 02/10/2024 7:34 [facility] Potassium 3.9 3.5 - 5.0 mmol/L 02/10/2024 7:34 [facility] Chloride 116(H) 96 - 110 mmol/L 02/10/2024 7:34 [facility] CO2 Total 24 22 - 32 mmol/L 02/10/2024 7:34 [facility] Glucose 138(H) 70 - 99 mg/dl 02/10/2024 7:34 [facility] BUN 4(L) 10 - 26 mg/dL 02/10/2024 7:34 [facility] Creatinine 0.61 0.52 - 1.04 mg/dL 02/10/2024 7:34 [facility] eGFR 105 >60 mL/min/1.7 3m2 02/10/2024 7:34 [facility] Total Protein 5.5(L) 6.3 - 8.2 g/dL 02/10/2024 7:34 [facility] Albumin 2.9(L) 3.4 - 4.9 g/dL 02/10/2024 7:34 [facility] Alkaline Phosphatase 125 38 - 126 U/L 02/10/2024 7:34 [facility] AST 21 15 - 46 U/L 02/10/2024 7:34 [facility] ALT 24 <35 U/L 02/10/2024 7:34 [facility] Bilirubin, Total 0.7 <1.4 mg/dL 02/10/20 7:34 [facility] Calcium 8.7 8.5 - 10.5 mg/dL 02/10/2024 7:34 [facility] Albumin/Globulin Ratio 1.1 1.0 - 2.5 02/10/2024 7:34 [facility] Anion Gap 6 5 - 14 mmol/L 02/10/2024 7:34 EDT [facility] Blood VENOUS BLOOD / Unknown Venipuncture / Unknown 02/10/2024 6:50 EDT 02/10/2024 7:06 EDT us Joyce Argueta MD CHEMISTRY & BLOOD GAS ORD ERABLES Final Result [facility] [address] [place] [address] * CT ABDOMEN PELVIS W CONTRAST (02/09/2024 11:21 EDT) Anatomical Region Laterality Modality Body, Abdomen, Pelvis, Abdomen and Pelvis Computed Tomography 02/09/2024 11:0 3 EDT Impressions 02/09/2024 11:51 EDT 1. ?? Significantly increased gaseous distension throughout the colon, with cecum distended to 7 cm. Smooth tapering to the sigmoid colon without focal wall thickening identified. 2. ?? New fluid level in the rectum with continued mild rectal wall thickening and perirectal edema. 3. ?? No evidence of perforation or drainable collection. THIS DOCUMENT HAS BEEN ELECTRONICALLY SIGNED BY SRIDEVI DEE MD FOR ANY QUESTIONS OR CONCERNS REGARDING THIS REPORT PLEASE CALL [facility] AT [phone] Narrative 02/09/2024 11:51 EDT PROCEDURE INFORMATION: Exam: CT Abdomen And Pelvis With Contrast Exam date and time: 02/09/2024 11:03 AM Age: 54 years old Clinical indication: Other: Increase in nausea, vomitting, and abd pain TECHNIQUE: Imaging protocol: Computed tomography of the abdomen and pelvis with contrast. Radiation optimization: All CT scans at this facility use at least one of these dose optimization techniques: automated exposure control; mA and/or kV adjustment per patient size (includes targeted exams where dose is matched to clinical indication); or iterative reconstruction. Contrast material: OMNIPAQUE 350; Contrast volume: 100 ml; Contrast route: INTRAVENOUS (IV); ?? COMPARISON: CT ABDOMEN PELVIS W CONTRAST 02/07/2024 6:57 PM FINDINGS: Liver: Fatty infiltration of the liver. Stable small hepatic cysts. Gallbladder and bile ducts: Normal. No calcified stones. No ductal dilation. Pancreas: Normal. No ductal dilation. Spleen: Normal. No splenomegaly. Adrenal glands: Normal. No mass. Kidneys and ureters: Normal. No hydronephrosis. Stomach and bowel: Significantly increased gaseous distension throughout the colon, with cecum distended to 7 cm. Smooth tapering to the sigmoid colon without focal wall thickening identified. New fluid level in the rectum with continued mild rectal wall thickening and perirectal edema. Appendix: No evidence of appendicitis. Intraperitoneal space: Unremarkable. No free air. No significant fluid collection. Vasculature: Unremarkable. No abdominal aortic aneurysm. Lymph nodes: Unremarkable. No enlarged lymph nodes. Urinary bladder: Unremarkable as visualized. Reproductive: Unremarkable as visualized. Bones/joints: Unremarkable. No acute fracture. Soft tissues: Unremarkable. Other findings: No evidence of perforation or drainable collection. Procedure Note Sridevi Dee MD - 02/09/2024 PROCEDURE INFORMATION: Exam: CT Abdomen And Pelvis With Contrast Exam date and time: 02/09/2024 11:03 AM Age: 54 years old Clinical indication: Other: Increase in nausea, vomitting, and abd pain TECHNIQUE: Imaging protocol: Computed tomography of the abdomen and pelvis with contrast. Radiation optimization: All CT scans at this facility use at least one of these dose optimization techniques: automated exposure control; mA and/or kV adjustment per patient size (includes targeted exams where dose is matched to clinical indication); or iterative reconstruction. Contrast material: OMNIPAQUE 350; Contrast volume: 100 ml; Contrast route: INTRAVENOUS (IV); COMPARISON: CT ABDOMEN PELVIS W CONTRAST 02/07/2024 6:57 PM FINDINGS: Liver: Fatty infiltration of the liver. Stable small hepatic cysts. Gallbladder and bile ducts: Normal. No calcified stones. No ductal dilation. Pancreas: Normal. No ductal dilation. Spleen: Normal. No splenomegaly. Adrenal glands: Normal. No mass. Kidneys and ureters: Normal. No hydronephrosis. Stomach and bowel: Significantly increased gaseous distension throughout the colon, with cecum distended to 7 cm. Smooth tapering to the sigmoid colon without focal wall thickening identified. New fluid level in the rectum with continued mild rectal wall thickening and perirectal edema. Appendix: No evidence of appendicitis. Intraperitoneal space: Unremarkable. No free air. No significant fluid collection. Vasculature: Unremarkable. No abdominal aortic aneurysm. Lymph nodes: Unremarkable. No enlarged lymph nodes. Urinary bladder: Unremarkable as visualized. Reproductive: Unremarkable as visualized. Bones/joints: Unremarkable. No acute fracture. Soft tissues: Unremarkable. Other findings: No evidence of perforation or drainable collection. IMPRESSION 1. Significantly increased gaseous distension throughout the [...] CONCERNS REGARDING THIS REPORT PLEASE CALL [facility] [phone] us Joyce Argueta MD IMG CT ORDERABLES Final R esult * US ABDOMEN LIMITED (02/09/2024 8:44 EDT) Anatomical Region Laterality Modality Abdomen, Body Ultrasound 02/09/2024 8:25 EDT Impressions 02/09/2024 9:43 EDT Fatty infiltration of the liver. THIS DOCUMENT HAS BEEN ELECTRONICALLY SIGNED BY SRIDEVI DEE MD FOR ANY QUESTIONS OR CONCERNS REGARDING THIS REPORT PLEASE CALL [facility] AT [phone] Narrative 02/09/2024 9:43 EDT PROCEDURE INFORMATION: Exam: US Abdomen, Limited; Right Upper Quadrant Exam date and time: 02/09/2024 8:25 AM Age: 54 years old Clinical indication: Abnormal findings; Abnormal radiologic finding of the abdomen; Radiologic exam and body structure: CT abd; Additional info: Abd pain, nausea, enlarged gb on CT, elevated alk phos TECHNIQUE: Imaging protocol: Real time ultrasound of the abdomen with image documentation. Limited exam focused on the right upper quadrant. COMPARISON: US ABDOMEN LIMITED 02/15/2020 5:27 PM FINDINGS: Liver: ??Fatty infiltration. No masses. Gallbladder: Normal. No gallstones. There is no gallbladder wall thickening. Biliary ducts: ??Not visualized due to bowel gas. Pancreas: ??Not visualized due to bowel gas. Right kidney: Normal. No mass. No hydronephrosis. Procedure Note Sridevi Dee MD - 02/09/2024 PROCEDURE INFORMATION: Exam: US Abdomen, Limited; Right Upper Quadrant Exam date and time: 02/09/2024 8:25 AM Age: 54 years old Clinical indication: Abnormal findings; Abnormal radiologic finding of the abdomen; Radiologic exam and body structure: CT abd; Additional info: Abd pain, nausea, enlarged gb on CT, elevated alk phos TECHNIQUE: Imaging protocol: Real time ultrasound of the abdomen with image documentation. Limited exam focused on the right upper quadrant. COMPARISON: US ABDOMEN LIMITED 02/15/2020 5:27 PM FINDINGS: Liver: Fatty infiltration. No masses. Gallbladder: Normal. No gallstones. There is no gallbladder wall thickening. Biliary ducts: Not visualized due to bowel gas. Pancreas: Not visualized due to bowel gas. Right kidney: Normal. No mass. No hydronephrosis. IMPRESSION Fatty infiltration of the liver. THIS DOCUMENT HAS BEEN ELECTRONICALLY SIGNED BY SRIDEVI DEE MD FOR ANY QUESTIONS OR CONCERNS REGARDING THIS REPORT PLEASE CALL [facility] [phone] us Joyce Argueta MD IMG US ORDERABLES Final R esult * (ABNORMAL) MAGNESIUM (02/09/2024 7:04 EDT) Magnesium 1.6(L) 1.7 - 2.8 mg/dL 02/09/2024 7:38 EDT [facility] Blood VENOUS BLOOD / Unknown Venipuncture / Unknown 02/09/2024 7:04 EDT 02/09/2024 7:12 EDT us Apolinar Diallo MD CHEMISTRY & BLOOD GAS ORDERABL ES Final Result Performing Organization Address City/State/[facility] Co de Phone Number [facility] [address] [place] [address] * (ABNORMAL) COMPREHENSIVE METABOLIC PANEL (CMP) (02/09/2024 7:04 EDT) Sodium 140 136 - 145 mmol/L 02/09/2024 7:47 EDT [facility] Potassium 3.4(L) 3.5 - 5.0 mmol/L 02/09/2024 7:47 EDT [facility] Chloride 115(H) 96 - 110 mmol/L 02/09/2024 7:47 EDT [facility] CO2 Total 21(L) 22 - 32 mmol/L 02/09/2024 7:47 [facility] Glucose 140(H) 70 - 99 mg/dl 02/09/2024 7:47 [facility] BUN 6(L) 10 - 26 mg/dL 02/09/2024 7:47 [facility] Creatinine 0.53 0.52 - 1.04 mg/dL 02/09/2024 7:47 [facility] eGFR 108 >60 mL/min/1.7 3m2 02/09/2024 7:47 [facility] Total Protein 6.0(L) 6.3 - 8.2 g/dL 02/09/2024 7:47 [facility] Albumin 3.3(L) 3.4 - 4.9 g/dL 02/09/2024 7:47 [facility] Alkaline Phosphatase 151(H) 38 - 126 U/L 02/09/2024 7:47 [facility] AST 22 15 - 46 U/L 02/09/2024 7:47 [facility] ALT 27 <35 U/L 02/09/2024 7:47 [facility] Bilirubin, Total 0.6 <1.4 mg/dL 02/09/20 7:47 [facility] Calcium 9.2 8.5 - 10.5 mg/dL 02/09/2024 7:47 [facility] Albumin/Globulin Ratio 1.2 1.0 - 2.5 02/09/2024 7:47 [facility] Anion Gap 4(L) 5 - 14 mmol/L 02/09/2024 7:47 [facility] Blood VENOUS BLOOD / Unknown Venipuncture / Unknown 02/09/2024 7:04 EDT 02/09/2024 7:12 EDT us Joyce Argueta MD CHEMISTRY & BLOOD GAS ORD ERABLES Final Result [facility] [address] [place] [address] * (ABNORMAL) C REACTIVE PROTEIN (02/09/2024 7:04 EDT) [facility] C-Reactive Protein 24.2(H) <10.0 mg/L 02/09/2024 7:38 [facility] Blood VENOUS BLOOD / Unknown Venipuncture / Unknown 02/09/2024 7:04 EDT 02/09/2024 7:12 EDT us Joyce Argueta MD CHEMISTRY & BLOOD GAS ORD ERABLES Final Result [facility] [address] [place] [address] * (ABNORMAL) COMPLETE BLOOD COUNT (02/09/2024 7:04 EDT) [facility] WBC 6.14 4.00 - 12.40 K/cmm 02/09/2024 7:14 [facility] RBC 3.90 3.86 - 5.04 M/cmm 02/09/2024 7:14 [facility] Hemoglobin 13.5 11.6 - 15.2 g/dL 02/09/2024 7:14 [facility] HCT 38.8 34.9 - 44.4 % 02/09/2024 7:14 [facility] MCV 100(H) 81 - 98 fL 02/09/2024 7:14 [facility] MCH 34.6(H) 26.7 - 33.3 pg 02/09/2024 7:14 [facility] MCHC 34.8 32.1 - 35.9 g/dL 02/09/2024 7:14 [facility] RDW-CV 17.0(H) <14.7 % 02/09/2024 7:14 [facility] RDW-SD 61.4(H) <50.4 fl 02/09/2024 7:14 [facility] PLT 138(L) 141 - 377 K/cmm 02/09/2024 7:14 EDT [facility] MPV 10.7 9.5 - 12.7 fL 02/09/2024 7:14 EDT [facility] Blood VENOUS BLOOD / Unknown Venipuncture / Unknown 02/09/2024 7:04 EDT 02/09/2024 7:11 EDT us Joyce Argueta MD HEMATOLOGY & PF4 ORDERABL ES Final Result [facility] [address] [place] [address] * XR ABDOMEN 1 VIEW (02/08/2024 22:17 EDT) Anatomical Region Laterality Modality Body Computed Radiogr aphy 02/08/2024 22:0 4 EDT Impressions 02/08/2024 22:47 EDT 1. ?? No acute abdominal process identfied. 2. ?? There is gaseous distension of the colon very little gas and moderate amount of stool is seen within the rectum. Consider distal colonic obstruction or obstipation. 3. ?? Has this patient undergone an enema questionable ? THIS DOCUMENT HAS BEEN ELECTRONICALLY SIGNED BY KRISTIAN KHAN MD FOR ANY QUESTIONS OR CONCERNS REGARDING THIS REPORT PLEASE CALL [facility] AT [phone] Narrative 02/08/2024 22:47 EDT PROCEDURE INFORMATION: Exam: XR Abdomen Exam date and time: 02/08/2024 10:04 PM Age: 54 years old Clinical indication: Bloating and other: Vomiting. ? Ileus TECHNIQUE: Imaging protocol: Radiologic exam of the abdomen. Views: Frontal supine view of the abdomen. 1 View. COMPARISON: CT ABDOMEN PELVIS W CONTRAST 02/07/2024 6:57 PM FINDINGS: Lungs: The visualized portions of the lung bases are unremarkable. Gastrointestinal tract: There is gaseous distension of the colon very little gas and moderate amount of stool is seen within the rectum. Consider distal colonic obstruction or obstipation. There is a nonspecific bowel gas pattern. No evidence of bowel obstruction. Intraperitoneal space: There is no free intraperitoneal air. Organs: The organs are unremarkable. Bones/joints: The spine, sacroiliac joints, and hip joints show no evidence of fracture or other acute processes. Soft tissues: There are no soft tissue masses or calcifications. Procedure Note Kristian Khan MD - 02/08/2024 PROCEDURE INFORMATION: Exam: XR Abdomen Exam date and time: 02/08/2024 10:04 PM Age: 54 years old Clinical indication: Bloating and other: Vomiting. ? Ileus TECHNIQUE: Imaging protocol: Radiologic exam of the abdomen. Views: Frontal supine view of the abdomen. 1 View. COMPARISON: CT ABDOMEN PELVIS W CONTRAST 02/07/2024 6:57 PM FINDINGS: Lungs: The visualized portions of the lung bases are unremarkable. Gastrointestinal tract: There is gaseous distension of the colon very little gas and moderate amount of stool is seen within the rectum. Consider distal colonic obstruction or obstipation. There is a nonspecific bowel gas pattern. No evidence of bowel obstruction. Intraperitoneal space: There is no free intraperitoneal air. Organs: The organs are unremarkable. Bones/joints: The spine, sacroiliac joints, and hip joints show no evidence of fracture or other acute processes. Soft tissues: There are no soft tissue masses or calcifications. IMPRESSION 1. No acute abdominal process identfied. 2. There is gaseous distension of the colon very little gas and moderate amount of stool is seen within the rectum. Consider distal colonic obstruction or obstipation. 3. Has this patient undergone an enema questionable ? THIS DOCUMENT HAS BEEN ELECTRONICALLY SIGNED BY KRISTIAN KHAN MD FOR ANY QUESTIONS OR CONCERNS REGARDING THIS REPORT PLEASE CALL VR [phone] us Liss Quigley DO IMG DIAGNOSTIC IMAGING ORDE TAY Final Result * MAGNESIUM (02/08/2024 6:57 EDT) Magnesium 1.8 1.7 - 2.8 mg/dL 02/08/2024 7:40 EDT [facility] Blood VENOUS BLOOD / Unknown Venipuncture / Unknown 02/08/2024 6:57 EDT 02/08/2024 7:15 EDT Apolinar Diallo MD CHEMISTRY & BLOOD GAS ORDERABL ES Final Result [facility] [address] [place] [address] * (ABNORMAL) COMPREHENSIVE METABOLIC PANEL (CMP) (02/08/2024 6:57 EDT) Sodium 134(L) 136 - 145 mmol/L 02/08/2024 7:40 T [facility] Potassium 3.9 3.5 - 5.0 mmol/L 02/08/2024 7:40 [facility] Chloride 105 96 - 110 mmol/L 02/08/2024 7:40 [facility] CO2 Total 22 22 - 32 mmol/L 02/08/2024 7:40 [facility] Glucose 78 70 - 99 mg/dl 02/08/2024 7:40 [facility] BUN 10 10 - 26 mg/dL 02/08/2024 7:40 [facility] Creatinine 0.57 0.52 - 1.04 mg/dL 02/08/2024 7:40 [facility] eGFR 107 >60 mL/min/1.7 3m2 02/08/2024 7:40 [facility] Total Protein 5.3(L) 6.3 - 8.2 g/dL 02/08/2024 7:40 [facility] Albumin 2.8(L) 3.4 - 4.9 g/dL 02/08/2024 7:40 [facility] Alkaline Phosphatase 130(H) 38 - 126 U/L 02/08/2024 7:40 [facility] AST 23 15 - 46 U/L 02/08/2024 7:40 [facility] ALT 24 <35 U/L 02/08/2024 7:40 [facility] Bilirubin, Total 0.7 <1.4 mg/dL 02/08/20 7:40 [facility] Calcium 8.3(L) 8.5 - 10.5 mg/dL 02/08/2024 7:40 [facility] Albumin/Globulin Ratio 1.1 1.0 - 2.5 02/08/2024 7:40 [facility] Anion Gap 7 5 - 14 mmol/L 02/08/2024 7:40 [facility] Blood VENOUS BLOOD / Unknown Venipuncture / Unknown 02/08/2024 6:57 EDT 02/08/2024 7:15 EDT us Joyce Argueta MD CHEMISTRY & BLOOD GAS ORD ERABLES Final Result [facility] [address] [place] [address] * (ABNORMAL) COMPLETE BLOOD COUNT (02/08/2024 6:57 EDT) WBC 4.46 4.00 - 12.40 K/cmm 02/08/2024 7:27 [facility] RBC 3.84(L) 3.86 - 5.04 M/cmm 02/08/2024 7:27 [facility] Hemoglobin 13.2 11.6 - 15.2 g/dL 02/08/2024 7:27 [facility] HCT 38.0 34.9 - 44.4 % 02/08/2024 7:27 [facility] MCV 99(H) 81 - 98 fL 02/08/2024 7:27 [facility] MCH 34.4(H) 26.7 - 33.3 pg 02/08/2024 7:27 [facility] MCHC 34.7 32.1 - 35.9 g/dL 02/08/2024 7:27 [facility] RDW-CV 16.4(H) <14.7 % 02/08/2024 7:27 [facility] RDW-SD 59.3(H) <50.4 fl 02/08/2024 7:27 [facility] PLT 128(L) 141 - 377 K/cmm 02/08/2024 7:27 [facility] MPV 10.9 9.5 - 12.7 fL 02/08/2024 7:27 EDT [facility] Blood VENOUS BLOOD / Unknown Venipuncture / Unknown 02/08/2024 6:57 EDT 02/08/2024 7:15 EDT us Joyce Argueta MD HEMATOLOGY & PF4 ORDERABL ES Final Result [facility] [address] [place] [address] * CT ABDOMEN PELVIS W CONTRAST (02/07/2024 19:08 EDT) Anatomical Region Laterality Modality Body, Abdomen, Pelvis, Abdomen and Pelvis Computed Tomography 02/07/2024 18:5 7 EDT Impressions 02/07/2024 19:55 EDT 1. ?? The gallbladder is distended. Consider further assessment with ultrasound if there is right upper quadrant tenderness. 2. ?? Increased stool in the colon. There is a large volume of desiccated stool in the rectal vault with some inflammation noted in the perirectal fat. Consider fecal impaction with associated proctitis. THIS DOCUMENT HAS BEEN ELECTRONICALLY SIGNED BY SOO FAIRBANKS MD FOR ANY QUESTIONS OR CONCERNS REGARDING THIS REPORT PLEASE CALL [facility] AT [phone] Narrative 02/07/2024 19:55 EDT PROCEDURE INFORMATION: Exam: CT Abdomen And Pelvis With Contrast Exam date and time: 02/07/2024 6:57 PM Age: 54 years old Clinical indication: Abdominal tenderness; Additional info: Nausea, emesis, abd pain TECHNIQUE: Imaging protocol: Computed tomography of [...] ?? COMPARISON: CT ABDOMEN PELVIS W CONTRAST 01/28/2024 11:03 PM FINDINGS: Lungs: There is atelectasis versus scarring in the lung bases bilaterally. There are no pleural effusions. Liver: The liver is stable in appearance, with a couple of tiny benign-appearing cysts noted. Gallbladder and bile ducts: The gallbladder is distended, measuring 4.4 cm. No calcified gallstones are identified. The common bile duct measures 10 mm in diameter, not significantly changed compared with the prior exam. Pancreas: The pancreas is within normal limits. Spleen: The spleen is normal in size. Adrenal glands: The adrenal glands are normal in appearance. Kidneys and ureters: The kidneys are symmetric in size. There is no hydronephrosis. No renal or ureteral calculi are identified. Stomach and bowel: The stomach is not distended. No pathologically dilated small bowel loops are identified. There is no evidence of colonic wall thickening. There is a fairly large volume of stool from the transverse colon through the proximal descending colon. There is a large volume of desiccated stool in the rectal vault, with mild inflammation noted in the perirectal fat. Appendix: There is a normal appendix in the right lower quadrant. Intraperitoneal space: There is no free air or free fluid in the abdomen or pelvis. Vasculature: The abdominal aorta is normal in caliber. The celiac axis, SMA and KIM are patent. Lymph nodes: No pathologically enlarged lymph nodes are identified in the abdomen or pelvis. Urinary bladder: The urinary bladder appears normal. Reproductive: The uterus is normal in appearance. No adnexal masses are identified. Bones/joints: There is normal alignment in the visualized portion of the spine. No acute fractures or aggressive bone lesions are appreciated. Soft tissues: The soft tissues are within normal limits. Procedure Note Soo Fairbanks MD - 02/07/2024 PROCEDURE INFORMATION: Exam: CT Abdomen And Pelvis With Contrast Exam date and time: 02/07/2024 6:57 PM Age: 54 years old Clinical indication: Abdominal tenderness; Additional info: Nausea, emesis, abd pain TECHNIQUE: Imaging protocol: Computed tomography of [...] (IV); COMPARISON: CT ABDOMEN PELVIS W CONTRAST 01/28/2024 11:03 PM FINDINGS: Lungs: There is atelectasis versus scarring in the lung bases bilaterally. There are no pleural effusions. Liver: The liver is stable in appearance, with a couple of tiny benign-appearing cysts noted. Gallbladder and bile ducts: The gallbladder is distended, measuring 4.4 cm. No calcified gallstones are identified. The common bile duct measures 10 mm in diameter, not significantly changed compared with the prior exam. Pancreas: The pancreas is within normal limits. Spleen: The spleen is normal in size. Adrenal glands: The adrenal glands are normal in appearance. Kidneys and ureters: The kidneys are symmetric in size. There is no hydronephrosis. No renal or ureteral calculi are identified. Stomach and bowel: The stomach is not distended. No pathologically dilated small bowel loops are identified. There is no evidence of colonic wall thickening. There is a fairly large volume of stool from the transverse colon through the proximal descending colon. There is a large volume of desiccated stool in the rectal vault, with mild inflammation noted in the perirectal fat. Appendix: There is a normal appendix in the right lower quadrant. Intraperitoneal space: There is no free air or free fluid in the abdomen or pelvis. Vasculature: The abdominal aorta is normal in caliber. The celiac axis, SMA and KIM are patent. Lymph nodes: No pathologically enlarged lymph nodes are identified in the abdomen or pelvis. Urinary bladder: The urinary bladder appears normal. Reproductive: The uterus is normal in appearance. No adnexal masses are identified. Bones/joints: There is normal alignment in the visualized portion of the spine. No acute fractures or aggressive bone lesions are appreciated. Soft tissues: The soft tissues are within normal limits. IMPRESSION 1. The gallbladder is distended. Consider further assessment with ultrasound if there is right upper quadrant tenderness. 2. Increased stool in the colon. There is a large volume of desiccated stool in the rectal vault with some inflammation noted in the perirectal fat. Consider fecal impaction with associated proctitis. THIS DOCUMENT HAS BEEN ELECTRONICALLY SIGNED BY SOO FAIRBANKS MD FOR ANY QUESTIONS OR CONCERNS REGARDING THIS REPORT PLEASE CALL [facility] [phone] us Joyce Argueta MD IMG CT ORDERABLES Final R esult * XR ABDOMEN 1 VIEW (02/07/2024 15:21 EDT) Anatomical Region Laterality Modality Body Computed Radiogr aphy 02/07/2024 15:2 4 EDT Impressions 02/07/2024 15:24 EDT Mild gaseous distention of a few loops of small and large bowel. Nonspecific, but may reflect mild ileus. CT recommended. [id number] Narrative 02/07/2024 15:24 EDT XR ABDOMEN 1 VIEW ?? Signs and Symptoms/Comments: ??Nausea, vomiting, abd pain; Comparison: KUB on 03/07/2022. CT abdomen pelvis on 01/28/2024. FINDINGS: Abdomen: Supine AP view(s). Bowel: Mild gaseous distention of a few loops of small and large bowel. Moderate amount of well-formed stool in the rectum. Calcifications: Scattered vascular calcifications. Bones: Unremarkable. Procedure Note Sherman Marie MD - 02/07/2024 XR ABDOMEN 1 VIEW Signs and Symptoms/Comments: Nausea, vomiting, abd pain; Comparison: KUB on 03/07/2022. CT abdomen pelvis on 01/28/2024. FINDINGS: Abdomen: Supine AP view(s). Bowel: Mild gaseous distention of a few loops of small and large bowel.Moderate amount of well-formed stool in the rectum. Calcifications: Scattered vascular calcifications. Bones: Unremarkable. IMPRESSION Mild gaseous distention of a few loops of small and large bowel.Nonspecific, but may reflect mild ileus. CT recommended. [id number] Joyce Argueta MD IMG DIAGNOSTIC IMAGING OR DERABLES Final Result * TROPONIN I (02/07/2024 13:49 EDT) Troponin I (ng/mL) <0.034 <0.034 ng/mL 02/07/2024 14:23 EDT [facility] Blood VENOUS BLOOD / Unknown Venipuncture / Unknown 02/07/2024 13:49 EDT 02/07/2024 13:54 EDT Narrative [facility] - 02/07/2024 14:23 EDT The results of this assay can be falsely lowered due to the consumption of Biotin. us Joyce Argueta MD CHEMISTRY & BLOOD GAS ORD ERABLES Final Result [facility] [address] [place] [address] * HOLD LAVENDER TOP (02/07/2024 7:35 EDT) Hold Hold 02/07/2024 8:4 6 EDT [facility] Blood VENOUS BLOOD / Unknown 02/07/2024 7:35 EDT 02/07/2024 7:35 EDT us Joyce Argueta MD LAB INFO SERVICE AND SUPP ORT & PHONE RESULT Final Result Performing Organization Address [facility] Co de Phone Number [facility] [address] [place] [address] * (ABNORMAL) HEPATIC FUNCTION PANEL (ALB,ALK PHOS,ALT,AST,DBIL,TOT THIERNO,TOT PROT) (02/07/2024 7:15 EDT) Total Protein 5.9(L) 6.3 - 8.2 g/dL 02/07/2024 13:36 [facility] Albumin 3.2(L) 3.4 - 4.9 g/dL 02/07/2024 13:36 [facility] Bilirubin, Total 0.7 <1.4 mg/dL 02/07/20 13:36 [facility] Conjugated Bilirubin 0.0 <=0.3 mg/dL 02/07/2024 13:36 [facility] Unconjugated Bilirubin 0.4 <=1.1 mg/dL 02/07/2024 13:36 [facility] Alkaline Phosphatase 149(H) 38 - 126 U/L 02/07/2024 13:36 [facility] ALT 27 <35 U/L 02/07/2024 13:36 [facility] AST 27 15 - 46 U/L 02/07/2024 13:36 [facility] Calculated Total Bilirubin 0.4 <1.4 mg/dL 02/07/2024 13:36 EDT [facility] Blood VENOUS BLOOD / Unknown Venipuncture / Unknown 02/07/2024 7:15 EDT 02/07/2024 7:27 EDT us Joyce Argueta MD CHEMISTRY & BLOOD GAS ORD ERABLES Final Result [facility] [address] [place] [address] * (ABNORMAL) BASIC METABOLIC PANEL (BMP) (02/07/2024 7:15 EDT) Sodium 136 136 - 145 mmol/L 02/07/2024 7:45 [facility] Potassium 4.0 3.5 - 5.0 mmol/L 02/07/2024 7:45 [facility] Chloride 106 96 - 110 mmol/L 02/07/2024 7:45 [facility] CO2 Total 20(L) 22 - 32 mmol/L 02/07/2024 7:45 [facility] Anion Gap 10 5 - 14 mmol/L 02/07/2024 7:45 [facility] Glucose 92 70 - 99 mg/dl 02/07/2024 7:45 [facility] Calcium 8.9 8.5 - 10.5 mg/dL 02/07/2024 7:45 [facility] BUN 16 10 - 26 mg/dL 02/07/2024 7:45 [facility] Creatinine 0.60 0.52 - 1.04 mg/dL 02/07/2024 7:45 [facility] eGFR 105 >60 mL/min/1.73 m2 02/07/2024 7:45 [facility] Blood VENOUS BLOOD / Unknown Venipuncture / Unknown 02/07/2024 7:15 EDT 02/07/2024 7:27 EDT us Apolinar Diallo MD CHEMISTRY & BLOOD GAS ORDERABL ES Final Result Performing Organization Address City/[facility]/ZIP Co de Phone Number [facility] [address] [place] [address] * MAGNESIUM (02/07/2024 7:15 EDT) [facility] Magnesium 1.7 1.7 - 2.8 mg/dL 02/07/2024 7:45 EDT [facility] Blood VENOUS BLOOD / Unknown Venipuncture / Unknown 02/07/2024 7:15 EDT 02/07/2024 7:27 EDT us Apolinar Diallo MD CHEMISTRY & BLOOD GAS ORDERABL ES Final Result Performing Organization Address [facility] Co de Phone Number [facility] [address] [place] [address] * (ABNORMAL) BASIC METABOLIC PANEL (BMP) (02/06/2024 6:45 EDT) [facility] Sodium 135(L) 136 - 145 mmol/L 02/06/2024 7:22 [facility] Potassium 3.6 3.5 - 5.0 mmol/L 02/06/2024 7:22 [facility] Chloride 103 96 - 110 mmol/L 02/06/2024 7:22 [facility] CO2 Total 21(L) 22 - 32 mmol/L 02/06/2024 7:22 [facility] Anion Gap 11 5 - 14 mmol/L 02/06/2024 7:22 [facility] Glucose 94 70 - 99 mg/dl 02/06/2024 7:22 [facility] Calcium 8.8 8.5 - 10.5 mg/dL 02/06/2024 7:22 [facility] BUN 12 10 - 26 mg/dL 02/06/2024 7:22 [facility] Creatinine 0.57 0.52 - 1.04 mg/dL 02/06/2024 7:22 [facility] eGFR 107 >60 mL/min/1.73 m2 02/06/2024 7:22 EDT [facility] Blood VENOUS BLOOD / Unknown Venipuncture / Unknown 02/06/2024 6:45 EDT 02/06/2024 7:03 EDT us Apolinar Diallo MD CHEMISTRY & BLOOD GAS ORDERABL ES Final Result Performing Organization Address [facility]/ZIP Co de Phone Number [facility] [address] [place] [address] * MAGNESIUM (02/06/2024 6:45 EDT) Pathologist [facility] Magnesium 1.7 1.7 - 2.8 mg/dL 02/06/2024 7:22 EDT [facility] Blood VENOUS BLOOD / Unknown Venipuncture / Unknown 02/06/2024 6:45 EDT 02/06/2024 7:03 EDT us Apolinar Diallo MD CHEMISTRY & BLOOD GAS ORDERABL ES Final Result Performing Organization Address [facility] Co de Phone Number [facility] [address] [place] [address] * (ABNORMAL) COMPLETE BLOOD COUNT (02/06/2024 6:45 EDT) WBC 4.60 4.00 - 12.40 K/cmm 02/06/2024 7:09 [facility] RBC 4.05 3.86 - 5.04 M/cmm 02/06/2024 7:09 [facility] Hemoglobin 14.0 11.6 - 15.2 g/dL 02/06/2024 7:09 [facility] HCT 39.4 34.9 - 44.4 % 02/06/2024 7:09 [facility] MCV 97 81 - 98 fL 02/06/2024 7:09 [facility] MCH 34.6(H) 26.7 - 33.3 pg 02/06/2024 7:09 [facility] MCHC 35.5 32.1 - 35.9 g/dL 02/06/2024 7:09 EDT [facility] RDW-CV 16.1(H) <14.7 % 02/06/2024 7:09 EDT [facility] RDW-SD 57.3(H) <50.4 fl 02/06/2024 7:09 EDT [facility] PLT 128(L) 141 - 377 K/cmm 02/06/2024 7:09 EDT [facility] MPV 11.3 9.5 - 12.7 fL 02/06/2024 7:09 EDT [facility] Blood VENOUS BLOOD / Unknown Venipuncture / Unknown 02/06/2024 6:45 EDT 02/06/2024 7:03 EDT us Apolinar Diallo MD HEMATOLOGY & PF4 ORDERABLES Fi nal Result Performing Organization Address [facility] Co de Phone Number [facility] [address] [place] [address] * (ABNORMAL) HOMOCYSTEINE (02/06/2024 6:45 EDT) [facility] Homocysteine >50.0(H) 5.0 - 13.9 umol/L 02/07/2024 9:22 EDT [facility] Comment:Results may be false ly elevated if sample is not collected on ice or is not removed from cells within 1 hour of collection. Blood VENOUS BLOOD / Unknown Venipuncture / Unknown 02/06/2024 6:45 EDT 02/06/2024 7:04 EDT Narrative [facility] - 02/07/2024 9:22 EDT Reference range may not apply to non-fasting samples. ??It is not recommended that EDTA plasma and serum from the same patient be used interchangeably. ??Serum concentrations have been observed to be up to 10% higher than EDTA plasma. Reference range may not apply to serum results. us Apolinar Diallo MD CHEMISTRY & BLOOD GAS ORDERABL ES Final Result Performing Organization Address [facility]/ZIP Co de Phone Number [facility] [address] [place] [address] * (ABNORMAL) MAGNESIUM (02/04/2024 13:30 EDT) Magnesium 1.4(L) 1.7 - 2.8 mg/dL 02/05/2024 14:36 EDT [facility] Comment:Slight hemolysis rodrigo ntified, interpret with caution as results may be affected due to hemolysis. Blood VENOUS BLOOD / Unknown Venipuncture / Unknown 02/04/2024 13:30 EDT 02/04/2024 13:32 EDT us Apolinar Diallo MD CHEMISTRY & BLOOD GAS ORDERABL ES Final Result Performing Organization Address [facility] Co de Phone Number [facility] [address] [place] [address] * (ABNORMAL) FOLATE (02/04/2024 13:30 EDT) [facility] Folate 2.02(L) >2.78 ng/mL 02/05/2024 10:51 EDT [facility] Blood VENOUS BLOOD / Unknown Venipuncture / Unknown 02/04/2024 13:30 EDT 02/04/2024 13:32 EDT Narrative [facility] - 02/05/2024 10:51 EDT The results of this assay can be falsely elevated due to the consumption of Biotin. us Apolinar Diallo MD CHEMISTRY & BLOOD GAS ORDERABL ES Final Result Performing Organization Address City/[facility]/ZIP Co de Phone Number [facility] [address] [place] [address] * (ABNORMAL) VITAMIN B12 (02/04/2024 13:30 EDT) Pathologist [facility] Vitamin B12 193(L) 211 - 911 pg/mL 02/04/2024 18:15 EDT [facility] Blood VENOUS BLOOD / Unknown Venipuncture / Unknown 02/04/2024 13:30 EDT 02/04/2024 13:32 EDT Narrative [facility] - 02/04/2024 18:15 EDT The results of this assay can be falsely elevated due to the consumption of Biotin. us Kassandra Ansari MD CHEMISTRY & BLOOD GAS ORD ERABLES Final Result [facility] [address] [place] [address] * (ABNORMAL) COMPREHENSIVE METABOLIC PANEL (CMP) (02/04/2024 13:30 EDT) Sodium 135(L) 136 - 145 mmol/L 02/04/2024 13:58 [facility] Potassium 4.5 3.5 - 5.0 mmol/L 02/04/2024 13:58 [facility] Comment:Slight hemolysis rodrigo ntified, interpret with caution as hemolysis will elevate potassium result. Chloride 107 96 - 110 mmol/L 02/04/2024 13:58 [facility] CO2 Total 25 22 - 32 mmol/L 02/04/2024 13:58 [facility] Glucose 86 70 - 99 mg/dl 02/04/2024 13:58 [facility] BUN 8(L) 10 - 26 mg/dL 02/04/2024 13:58 [facility] Comment: Slight hemolysis identified, interpret with caution as results may be affected due to hemolysis. Creatinine 0.60 0.52 - 1.04 mg/dL 02/04/2024 13:58 [facility] eGFR 105 >60 mL/min/1.7 3m2 02/04/2024 13:58 [facility] Total Protein 5.7(L) 6.3 - 8.2 g/dL 02/04/2024 13:58 [facility] Comment:Slight hemolysis rodrigo ntified, interpret with caution as results may be affected due to hemolysis. Albumin 3.1(L) 3.4 - 4.9 g/dL 02/04/2024 13:58 [facility] Comment:Slight hemolysis rodrigo ntified, interpret with caution as results may be affected due to hemolysis. Alkaline Phosphatase 89 38 - 126 U/L 02/04/2024 13:58 EDT [facility] Comment:Slight hemolysis rodrigo ntified, hemolysis will decrease ALKP result. Interpret with caution as results may be affected due to hemolysis. AST 34 15 - 46 U/L 02/04/2024 13:58 EDT [facility] Comment:Slight hemolysis rodrigo ntified, interpret with caution as results may be affected due to hemolysis. ALT 28 <35 U/L 02/04/2024 13:58 EDT [facility] Bilirubin, Total 0.9 <1.4 mg/dL 02/04/20 13:58 EDT [facility] Calcium 8.5 8.5 - 10.5 mg/dL 02/04/2024 13:58 EDT [facility] Albumin/Globulin Ratio 1.2 1.0 - 2.5 02/04/2024 13:58 EDT [facility] Anion Gap 3(L) 5 - 14 mmol/L 02/04/2024 13:58 EDT [facility] Blood VENOUS BLOOD / Unknown Venipuncture / Unknown 02/04/2024 13:30 EDT 02/04/2024 13:32 EDT Roe Griggs MD CHEMISTRY & BLOOD GAS ORDERAB LES Final Result [facility] [address] [place] [address] * XR ANKLE LEFT 3 OR MORE VIEWS (02/04/2024 13:14 EDT) Anatomical Region Laterality Modality Lower Extremities, Ankle Left Compute d Radiography 02/04/2024 14:2 5 EDT Impressions 02/04/2024 14:25 EDT Tiny avulsion fractures, as discussed. Medial malleolar and distal talar avulsion fractures are new compared to 2019. [id number] Narrative 02/04/2024 14:25 EDT XR ANKLE LEFT 3 OR MORE VIEWS ?? Signs and Symptoms/Comments: ??fall, left ankle bruising and pain; Comparison: 06/09/2019, 03/30/2019, 12/22/2018. FINDINGS: Left ankle: 3 views. Bones: * ??Tiny avulsion fracture fragment along the dorsal distal talus, age- indeterminate but new compared to 2019. * ??Possible acute tiny medial malleolar avulsion fracture fragment. * ??Old healed distal fibular fracture also noted. * ??Suspect old healed distal tibial plafond fracture. * ??Ankle mortise appears grossly congruent. Degenerative changes: Mild ankle and hindfoot arthrosis. Soft tissues: Mild soft tissue swelling. Procedure Note Sherman Marie MD - 02/04/2024 XR ANKLE LEFT 3 OR MORE VIEWS Signs and Symptoms/Comments: fall, left ankle bruising and pain; Comparison: 06/09/2019, 03/30/2019, 12/22/2018. FINDINGS: Left ankle: 3 views. Bones: * Tiny avulsion fracture fragment along the dorsal distal talus,age- indeterminate but new compared to 2019. * Possible acute tiny medial malleolar avulsion fracture fragment. * Old healed distal fibular fracture also noted. * Suspect old healed distal tibial plafond fracture. * Ankle mortise appears grossly congruent. Degenerative changes: Mild ankle and hindfoot arthrosis. Soft tissues: Mild soft tissue swelling. IMPRESSION Tiny avulsion fractures, as discussed. Medial malleolar and distal talaravulsion fractures are new compared to 2019. [id number] us Roe Griggs MD IMG DIAGNOSTIC IMAGING ORDERA BLES Final Result * CT HEAD WO CONTRAST (02/04/2024 13:00 EDT) Anatomical Region Laterality Modality Head Computed Tomogra phy 02/04/2024 13:1 8 EDT Impressions 02/04/2024 13:18 EDT No acute abnormality. [id number] Narrative 02/04/2024 13:18 EDT INDICATION: fall, anticoagulated, prior hemorrhagic stroke;. COMPARISON: Head CT 01/28/2024. TECHNIQUE: Noncontrast CT scan of the head was performed. Axial images and multiplanar reformations were reviewed. FINDINGS: Brain: Left temporal and parietal chronic encephalomalacia, unchanged. No intracranial hemorrhage or mass effect. No acute stroke. Ventricles: Ex vacuo dilatation of the left lateral ventricle, unchanged. Paranasal Sinuses and Mastoids: The paranasal sinuses and mastoid air unremarkable as visualized. Orbits: The ocular globes and retro-orbital fat are normal as visualized.. Bones: Left craniotomy defect, unchanged. No acute fracture. Soft tissues: The scalp and visualized facial soft tissues have normal appearances. Procedure Note Iron Romero MD - 02/04/2024 INDICATION: fall, anticoagulated, prior hemorrhagic stroke;. COMPARISON: Head CT 01/28/2024. TECHNIQUE: Noncontrast CT scan of the head was performed. Axial images andmultiplanar reformations were reviewed. FINDINGS: Brain: Left temporal and parietal chronic encephalomalacia, unchanged. Nointracranial hemorrhage or mass effect. No acute stroke. Ventricles: Ex vacuo dilatation of the left lateral ventricle,unchanged. Paranasal Sinuses and Mastoids: The paranasal sinuses and mastoid airunremarkable as visualized. Orbits: The ocular globes and retro-orbital fat are normal asvisualized.. Bones: Left craniotomy defect, unchanged. No acute fracture. Soft tissues: The scalp and visualized facial soft tissues have normalappearances. IMPRESSION No acute abnormality. [id number] us Roe Griggs MD IMG CT ORDERABLES Final Resul t * HOLD GREEN TOP (02/04/2024 12:53 EDT) Hold Hold 02/04/2024 14:01 EDT [facility] Blood VENOUS BLOOD / Unknown Venipuncture / Unknown 02/04/2024 12:53 EDT 02/04/2024 12:55 EDT us Roe Griggs MD LAB INFO SERVICE AND SUPPORT & PHONE RESULT Final Result [facility] [address] [place] [id number] * HOLD BLUE TOP (02/04/2024 12:53 EDT) Hold Hold 02/04/2024 14:01 EDT [facility] Blood VENOUS BLOOD / Unknown Venipuncture / Unknown 02/04/2024 12:53 EDT 02/04/2024 12:55 EDT Roe Griggs MD LAB INFO SERVICE AND SUPPORT & PHONE RESULT Final Result [facility] [address] [place] [address] * (ABNORMAL) COMPLETE BLOOD COUNT AND DIFFERENTIAL (02/04/2024 12:43 EDT) WBC 4.30 4.00 - 12.40 K/cmm 02/04/2024 13:03 [facility] RBC 3.95 3.86 - 5.04 M/cmm 02/04/2024 13:03 [facility] Hemoglobin 13.6 11.6 - 15.2 g/dL 02/04/2024 13:03 [facility] HCT 39.1 34.9 - 44.4 % 02/04/2024 13:03 [facility] MCV 99(H) 81 - 98 fL 02/04/2024 13:03 [facility] MCH 34.4(H) 26.7 - 33.3 pg 02/04/2024 13:03 [facility] MCHC 34.8 32.1 - 35.9 g/dL 02/04/2024 13:03 [facility] RDW-CV 16.0(H) <14.7 % 02/04/2024 13:03 [facility] RDW-SD 58.7(H) <50.4 fl 02/04/2024 13:03 [facility] PLT 140(L) 141 - 377 K/cmm 02/04/2024 13:03 [facility] MPV 11.1 9.5 - 12.7 fL 02/04/2024 13:03 [facility] % Neutrophils 65.3 % 02/04/2024 13:03 [facility] % Lymphocytes 28.8 % 02/04/2024 13:03 [facility] % Monocytes 4.9 % 02/04/2024 13:03 [facility] % Eosinophils 0.0 % 02/04/2024 13:03 [facility] % Basophils 0.5 % 02/04/2024 13:03 [facility] % Immature Grans 0.5 % 02/04/20 13:03 [facility] Absolute Neutrophils 2.81 2.20 - 8.85 K/cmm 02/04/2024 13:03 [facility] Absolute Lymphocytes 1.24 1.09 - 3.30 K/cmm 02/04/2024 13:03 [facility] Absolute Monocytes 0.21 0.10 - 0.80 K/cmm 02/04/2024 13:03 [facility] Absolute Eosinophils 0.00(L) 0.03 - 0.61 K/cmm 02/04/2024 13:03 [facility] ABS Basophils 0.02 0.01 - 0.11 K/cmm 02/04/2024 13:03 [facility] Absolute Immature Grans 0.02 0.00 - 0.06 K/cmm 02/04/2024 13:03 [facility] Type of Differential: Auto 02/04/2024 13:03 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 Acute infective polyneuritis Sprain of left ankle, unspecified ligament, initial encounter Weakness Other malaise and fatigue Failure to thrive in adult Adult failure to thrive Closed avulsion fracture of medial malleolus of left tibia, initial encounter Acute left ankle pain [M25.572] Hypomagnesemia [E83.42] Disorders of magnesium metabolism Ileus ([facility]) [K56.7] Paralytic ileus Epigastric pain [R10.13] Abdominal pain, epigastric Right upper quadrant abdominal pain [R10.11] Abdominal pain, right upper quadrant Hyponatremia [E87.1] Hyposmolality and/or hyponatremia Banner syndrome Progressive focal motor weakness [R53.1] Muscle weakness (generalized) AIDP (acute inflammatory demyelinating polyneuropathy) ([facility]) [G61.0] Acute infective polyneuritis Acute left ankle pain [M25.572] Closed avulsion fracture of medial malleolus of left tibia, initial encounter Weakness Other malaise and fatigue Sprain of left ankle, unspecified ligament, initial encounter Failure to thrive in adult Adult failure to thrive Hypomagnesemia Disorders of magnesium metabolism Ileus ([facility]) Paralytic ileus Epigastric pain Abdominal pain, epigastric Right upper quadrant abdominal pain Abdominal pain, right upper quadrant Hyponatremia Hyposmolality and/or hyponatremia Banner syndrome Progressive focal motor weakness Muscle weakness (generalized) documented in this encounter Admitting Diagnoses Diagnosis Acute left ankle pain Hypomagnesemia Disorders of magnesium metabolism Weakness Other malaise and fatigue documented in this encounter Administered Medications Inactive Administered Medications - up to 3 most recent administrations Medication Order MAR Action Action Date Dose Rate Site acetaminophen (TYLENOL) tablet 650 mg 650 mg, oral, EVERY 6 HOURS, First dose (after last modification) on Sat02/14/24 at 1915, Until Discontinued, Routine Given 02/15/2024 12:04 EDT 650 mg Given 02/15/2024 7:49 EDT 650 mg Given 02/14/2024 20:47 EDT 650 mg acetaminophen (TYLENOL) tablet 650 mg 650 mg, oral, 3 TIMES DAILY, First dose (after last modification) on Sat02/16/24 at 0900, Until Discontinued, Routine Given 02/19/2024 15:02 EDT 650 mg Given 02/19/2024 9:03 EDT 650 mg Given 02/18/2024 20:10 EDT 650 mg acetaminophen (TYLENOL) tablet 975 mg 975 mg (rounded from 1,000 mg), oral, NOW X1, 1 dose, On Sat02/04/24 at 1445, Routine Given 02/04/2024 15:01 EDT 975 mg acetaminophen (TYLENOL) tablet 975 mg 975 mg (rounded from 1,000 mg), oral, EVERY 8 HOURS PRN, Starting on Sat02/04/24 at 1633, Until Sat02/07/24 at 1118, Pain, Fever, Severe Pain 7-10, Moderate Pain 4-6, Mild Pain 1-3, Routine Given 02/06/2024 14:45 EDT 975 mg Given 02/06/2024 6:15 EDT 975 mg Given 02/05/2024 15:04 EDT 975 mg acetaminophen (TYLENOL) tablet 975 mg 975 mg (rounded from 1,000 mg), oral, EVERY 6 HOURS, 10 doses, First dose (after last modification) on Sat02/07/24 at 1200, Last dose on Sat02/09/24 at 1800, Routine Given 02/08/2024 11:55 EDT 975 mg Given 02/08/2024 6:21 EDT 975 mg Given 02/07/2024 17:07 EDT 975 mg acetaminophen (TYLENOL) tablet 975 mg 975 mg, oral, EVERY 6 HOURS PRN, Starting on Sat02/11/24 at 0138, Until Sat02/14/24 at 1850, Pain, Mild Pain 1-3, Routine Given 02/13/2024 20:00 EDT 975 mg Given 02/12/2024 5:32 EDT 975 mg Given 02/11/2024 21:10 EDT 975 mg acetaminophen (TYLENOL) tablet 975 mg 975 mg (rounded from 1,000 mg), oral, 3 TIMES DAILY, First dose (after last modification) on Sat02/19/24 at 2100, Until Discontinued, Routine Given 02/19/2024 21:24 EDT 975 mg alteplase (CATHFLO ACTIVASE) injection 2 mg 2 mg, intercatheter, PRN, Starting on Sat02/11/24 at 1345, Until Sat02/20/24 at 0025, Line Care, Routine aluminum & magnesium hydroxide-simethicone (MAALOX PLUS) 200-200-20 mg/5 mL suspension 30 mL 30 mL, oral, EVERY 6 HOURS PRN, Starting on Sat02/07/24 at 1117, Until Sat02/20/24 at 0025, Indigestion, Routine apixaban (ELIQUIS) tablet 2.5 mg 2.5 mg, oral, 2 TIMES DAILY, First dose on Sat02/04/24 at 2100, Until Discontinued, Routine Given 02/14/2024 8:48 EDT 2. 5 mg Given 02/13/2024 20:01 EDT 2.5 mg Given 02/13/2024 8:23 EDT 2.5 mg apixaban (ELIQUIS) tablet 2.5 mg 2.5 mg, oral, 2 TIMES DAILY, First dose on Sat02/19/24 at 2100, Until Discontinued, Routine Given 02/19/2024 21:25 EDT 2 .5 mg aspirin EC tablet 81 mg 81 mg, oral, DAILY, First dose on Sat02/05/24 at 0900, Until Discontinued, Routine Given 02/14/2024 8:45 EDT 81 mg Given 02/13/2024 8:25 EDT 81 mg Given 02/12/2024 9:28 EDT 81 mg bisacodyL (DULCOLAX) EC tablet 10 mg 10 mg, oral, DAILY, First dose on Sat02/05/24 at 0900, Until Discontinued, Routine Given 02/12/2024 9:32 EDT 10 mg Given 02/07/2024 8:18 EDT 10 mg Given 02/06/2024 9:01 EDT 10 mg bisacodyL (DULCOLAX) EC tablet 10 mg 10 mg, oral, DAILY, First dose on Sat02/20/24 at 0900, Until Discontinued, Routine buPROPion (WELLBUTRIN SR) SR tablet 100 mg 100 mg, oral, 2 TIMES DAILY, First dose on Sat02/04/24 at 2100, Until Discontinued, Routine Given 02/19/2024 21:23 EDT 1 00 mg Given 02/19/2024 9:03 EDT 100 mg Given 02/18/2024 20:10 EDT 100 mg calcium GLUconate in 0.9 % sodium chloride IVPB 2 g 2 g, intravenous, Administer over 120 Minutes, NOW X1, 1 dose, On 02/08/24 at 1030, Routine Given 02/08/2024 10:35 EDT 2 g carbamide peroxide (DEBROX) 6.5 % otic solution 5 Drop 5 Drop, both ears, 4 TIMES DAILY PRN, Starting on 02/08/24 at 1525, Until [place] 02/20/24 at 0025, Other, Routine Given 02/08/2024 18:02 EDT 5 Drops cefTRIAXone (ROCEPHIN) 1,000 mg in sodium chloride (NS MBP) 50 mL IVPB 1,000 mg, intravenous, Administer over 30 Minutes, DAILY, 7 doses, First dose on [place] 02/13/24 at 0915, Last dose on Sat02/19/24 at 0900, Type of Therapy: Definitive, Based on Cultures, Suspected Indication (Select all that apply): Urinary tract infection, Routine Given 02/18/2024 9:3 3 EDT 1,000 mg Given 02/17/2024 9:39 EDT 1,000 mg IV Given 02/16/2024 10:03 EDT 1,000 mg cyanocobalamin (VITAMIN B-12) tablet 1,000 mcg 1,000 mcg, oral, DAILY, First dose on Sat02/05/24 at 0915, Until Discontinued, Routine Given 02/16/2024 10:0 3 EDT 1,000 mcg Given 02/15/2024 9:33 EDT 1,000 mcg Given 02/14/2024 8:45 EDT 1,000 mcg cyanocobalamin (VITAMIN B-12) tablet 1,000 mcg 1,000 mcg, oral, DAILY, First dose on Sat02/17/24 at 0900, Until Discontinued, Routine Given 02/17/2024 9:41 EDT 1,000 mcg cyanocobalamin (VITAMIN B12) injection 1,000 mcg 1,000 mcg, intramuscular, DAILY, 5 doses, First dose on Sat02/16/24 at 1030, Last dose on Sat02/20/24 at 0900, Routine Given 02/16/2024 11:51 EDT 1,000 mcg dextrose 5 % (D5W) infusion at 75 mL/hr, 1,000 mL, intravenous, CONTINUOUS, Starting on 02/10/24 at 1015, Until Tu02/11/24 at 0027, Routine New Bag 02/10/2024 11:08 EDT 1,000 mL 75 mL/hr dextrose 5% lactated ringers with KCl 20 mEq infusion intravenous, at 100 mL/hr, CONTINUOUS, Starting on 02/08/24 at 1345, Until 02/10/24 at 0955 New Bag 02/10/2024 8:31 EDT 100 mL/hr New Bag 02/09/2024 22:04 EDT 100 mL/hr New Bag 02/08/2024 15:30 EDT 100 mL/hr dextrose 5% lactated ringers with KCl 20 mEq infusion intravenous, at 100 mL/hr, CONTINUOUS, Starting on Sat02/11/24 at 1400, Until [place] 02/13/24 at 1702 New Bag 02/13/2024 15:06 EDT 100 mL/hr New Bag 02/12/2024 11:15 EDT 100 mL/hr New Bag 02/12/2024 1:31 EDT 100 mL/hr diphenhydrAMINE (BENADRYL) injection 50 mg 50 mg, intravenous, PRN, 1 dose, Starting on Sat02/18/24 at 1638, Until [place] 02/20/24 at 0025, administer for rash, itching and/or hives associated with a mild to moderate infusion reaction OR after epinephrine IM for an anaphylactic reaction., Routine enoxaparin (LOVENOX) injection 80 mg 80 mg (rounded from 83.8 mg = 1 mg/kg ? 83.8 kg), subcutaneous, EVERY 12 HOURS, First dose on Sat02/16/24 at 1045, Until Discontinued, Routine Given 02/17/2024 9:59 EDT 80 mg Given 02/16/2024 20:25 EDT 80 mg Given 02/16/2024 11:51 EDT 80 mg EPINEPHrine (ADRENALIN) injection 0.3 mg 0.3 mg, intramuscular, PRN, 1 dose, Starting on Sat02/18/24 at 1638, Until [place] 02/20/24 at 0025, for hypotension and/or airway obstruction symptoms related to an infusion or allergic reaction., Routine folic acid (FOLVITE) tablet 1 mg 1 mg, oral, DAILY, First dose on Sat02/05/24 at 1530, Until Discontinued, Routine Given 02/16/2024 10:03 EDT 1 mg Given 02/15/2024 9:32 EDT 1 mg Given 02/14/2024 8:45 EDT 1 mg folic acid (FOLVITE) tablet 1 mg 1 mg, oral, DAILY, First dose on Sat02/17/24 at 0900, Until Discontinued, Routine Given 02/19/2024 9:03 EDT 1 mg Given 02/18/2024 9:36 EDT 1 mg Given 02/17/2024 9:41 EDT 1 mg folic acid injection 1 mg 1 mg, intramuscular, DAILY, First dose on Sat02/16/24 at 1100, Until Discontinued, Routine Given 02/16/2024 11:51 EDT 1 mg HYDROmorphone (DILAUDID) tablet 1 mg 1 mg, oral, EVERY 12 HOURS PRN, Starting on Sat02/19/24 at 1625, Until Sat02/20/24 at 0025, Severe Pain 7-10, Routine HYDROmorphone (PF) (DILAUDID) 0.5 mg/0.5 mL syringe 0.4 mg 0.4 mg, intravenous, EVERY 3 HOURS PRN, Starting on Sat02/10/24 at 0953, Until Sat02/10/24 at 1759, Moderate Pain 4-6, Severe Pain 7-10, Routine Given 02/10/2024 15:11 EDT 0.4 mg HYDROmorphone (PF) (DILAUDID) 0.5 mg/0.5 mL syringe 0.5 mg 0.5 mg, intravenous, NOW X1, 1 dose, On 02/08/24 at 1415, Routine Given 02/08/2024 15:38 EDT 0.5 mg HYDROmorphone (PF) (DILAUDID) 0.5 mg/0.5 mL syringe 0.5 mg 0.5 mg, intravenous, EVERY 3 HOURS PRN, Starting on 02/08/24 at 1346, Until Sat02/10/24 at 0953, Moderate Pain 4-6, Severe Pain 7-10, Routine Given 02/10/2024 9:07 EDT 0.5 mg Given 02/10/2024 4:14 EDT 0.5 mg Given 02/09/2024 20:26 EDT 0.5 mg ibuprofen (MOTRIN) tablet 400 mg 400 mg, oral, EVERY 6 HOURS PRN, Starting on Sat02/06/24 at 1538, Until Sat02/07/24 at 1118, Pain, Routine Given 02/07/2024 8:18 EDT 400 mg Given 02/06/2024 16:07 EDT 400 mg ibuprofen (MOTRIN) tablet 600 mg 600 mg, oral, 4 TIMES DAILY, 10 doses, First dose (after last modification) on Sat02/07/24 at 1700, Last dose on Sat02/09/24 at 2100, Routine Given 02/08/2024 11:55 EDT 600 mg Given 02/07/2024 20:29 EDT 600 mg Given 02/07/2024 17:07 EDT 600 mg immune globulin (PRIVIGEN) 10 % injection 30 g 30 g, intravenous, DAILY, 5 doses, First dose (after last modification) on Sat02/18/24 at 1745, Last dose on Sat02/22/24 at 1400, Routine Rate Change 02/19/2024 17:30 EDT 267 mL/hr Rate Change 02/19/2024 17:15 EDT 243 mL/hr Rate Change 02/19/2024 17:00 EDT 218.7 mL/hr iohexoL (OMNIPAQUE 350) solution 100 mL 100 mL, intravenous, Once in imaging, 1 dose, Starting on Sat02/07/24 at 1837, Until Sat02/07/24 at 1908, Routine Given 02/07/2024 19:08 EDT 100 mL iohexoL (OMNIPAQUE 350) solution 100 mL 100 mL, intravenous, Once in imaging, 1 dose, Starting on Sat02/09/24 at 0950, Until Sat02/09/24 at 1121, Routine Given 02/09/2024 11:21 EDT 100 mL iohexoL (OMNIPAQUE 350) solution 100 mL 100 mL, intravenous, Once in imaging, 1 dose, Starting on Sat02/18/24 at 1741, Until Sat02/18/24 at 1823, Routine Given 02/18/2024 18:23 EDT 100 mL ketOROLAC (TORADOL) injection 15 mg 15 mg, intravenous, NOW X1, 1 dose, On Sat02/11/24 at 0200, Routine Given 02/11/2024 2:14 EDT 15 mg ketOROLAC (TORADOL) injection 15 mg 15 mg, intravenous, EVERY 6 HOURS PRN, Starting on Sat02/11/24 at 1342, Until [place] 02/13/24 at 1341, Severe Pain 7-10, Routine Given 02/12/2024 5:47 EDT 15 mg Given 02/11/2024 23:14 EDT 15 mg Given 02/11/2024 14:44 EDT 15 mg lactated ringers (LR) infusion at 100 mL/hr, intravenous, CONTINUOUS, Starting on Sat02/07/24 at 1715, Until Sat02/08/24 at 1319, Routine New Bag 02/08/2024 3:59 EDT 100 mL/hr New Bag 02/07/2024 17:06 EDT 100 mL/hr lactated ringers (LR) infusion at 100 mL/hr, intravenous, CONTINUOUS, Starting on Sat02/11/24 at 0100, Until Sat02/11/24 at 0440, Routine New Bag 02/11/2024 0:21 EDT 100 mL/hr lactated ringers (LR) infusion at 100 mL/hr, 2,000 mL, intravenous, Once (Time Specified), 1 dose, On Sat02/18/24 at 1430, Routine New Bag 02/18/2024 14:27 EDT 2,000 mL 100 mL/hr lactated ringers (LR) infusion at 100 mL/hr, 1,000 mL, intravenous, Once (Time Specified), 1 dose, On Sat02/19/24 at 1615, Routine New Bag 02/19/2024 18:50 EDT 1,000 mL 100 mL/hr lactated ringers BOLUS 500 mL 500 mL, intravenous, NOW X1, 1 dose, On Sat02/14/24 at 1115, Routine New Bag 02/14/2024 11:39 EDT 500 mL lactated ringers BOLUS 500 mL 500 mL, intravenous, NOW X1, 1 dose, On Sat02/17/24 at 1615, Routine New Bag 02/17/2024 16:32 EDT 500 mL lactated ringers BOLUS 500 mL 500 mL, intravenous, NOW X1, 1 dose, On Sat02/19/24 at 2300, Routine New Bag 02/19/2024 23:00 EDT 500 mL lactulose (CHRONULAC) 20 gram/30 mL solution 30 mL 30 mL, oral, EVERY 4 HOURS, First dose on 02/08/24 at 1030, Until Discontinued, Routine Given 02/12/2024 5:33 EDT 30 mL Given 02/11/2024 22:04 EDT 30 mL Given 02/10/2024 21:33 EDT 30 mL lactulose retention enema (200 gm/300 mL lactulose + 700 mL tap water) 200 g 200 g, rectal, EVERY 6 HOURS, 2 doses, [facility] last modification[facility] at 1200, Last dose on 02/08/24 at 1800, Routine Given 02/08/2024 1 9:50 EDT 200 g Given 02/08/2024 13:33 EDT 200 g lactulose retention enema (200 gm/300 mL lactulose + 700 mL tap water) 200 g 200 g, rectal, EVERY 4 HOURS, 2 doses, First dose on Sat02/09/24 at 1115, Last dose on [place] 02/09/24 at 1515, Routine Given 02/09/2024 12:29 EDT 200 g lactulose retention enema (200 gm/300 mL lactulose + 700 mL tap water) 200 g 200 g, rectal, EVERY 4 HOURS, 2 doses, First dose (after last reorder) on [place] 02/09/24 at 1745, Last dose on [place] 02/09/24 at 2145, Routine Given 02/09/2024 1 8:53 EDT 200 g lactulose retention enema (200 gm/300 mL lactulose + 700 mL tap water) 200 g 200 g, rectal, DAILY, First dose on 02/10/24 at 1545, Until Discontinued, Routine Given 02/14/2024 8:51 EDT 200 g Given 02/12/2024 11:00 EDT 200 g Given 02/10/2024 15:58 EDT 200 g lactulose retention enema (200 gm/300 mL lactulose + 700 mL tap water) 200 g 200 g, rectal, 2 TIMES DAILY PRN, Starting on Sat02/16/24 at 1100, Until [place] 02/20/24 at 0025, Constipation, NO BM in 48hrs, Routine lidocaine (GLYDO/URO-JET) 2 % jelly in applicator topical, PRN, Starting on Sat02/12/24 at 1909, Until Sat02/20/24 at 0025, Pain lidocaine (PF) 10 mg/mL (1 %) injection 5 mg 5 mg, intradermal, PRN, 2 doses, Starting on Sat02/11/24 at 1345, Until Sat02/20/24 at 0025, line placement, Routine LORazepam (ATIVAN) injection 0.5 mg 0.5 mg, intravenous, EVERY 4 HOURS PRN, Starting on Sat02/09/24 at 1047, Until Sat02/12/24 at 1225, nausea and vomitting, Routine Given 02/12/2024 11 :53 EDT 0.5 mg Given 02/10/2024 18:39 EDT 0.5 mg magnesium (MAGTAB) ER tablet 84 mg 84 mg, oral, DAILY, First dose on Sat02/19/24 at 0900, Until Discontinued, Routine Given 02/19/2024 9:03 EDT 84 mg magnesium oxide (MAG-OX) tablet 400 mg 400 mg, oral, 2 TIMES DAILY, First dose on Sat02/16/24 at 1115, Until Discontinued, Routine Given 02/19/2024 9:03 EDT 40 0 mg Given 02/18/2024 20:10 EDT 400 mg Given 02/18/2024 9:36 EDT 400 mg magnesium sulfate 2 g in water 50 mL 2 g, intravenous, Administer over 60 Minutes, NOW X1, 1 dose, On Sat02/05/24 at 1530, Routine New Bag 02/05/2024 1 6:39 EDT 2 g magnesium sulfate 2 g in water 50 mL 2 g, intravenous, Administer over 60 Minutes, NOW X1, 1 dose, On Sat02/06/24 at 0815, Routine New Bag 02/06/2024 9:00 EDT 2 g magnesium sulfate 2 g in water 50 mL 2 g, intravenous, Administer over 60 Minutes, EVERY 6 HOURS, 2 doses, First dose on Sat02/07/24 at 0800, Last dose on Sat02/07/24 at 1200, Routine New Bag 02/07/2024 11:20 EDT 2 g New Bag 02/07/2024 8:18 EDT 2 g magnesium sulfate 2 g in water 50 mL 2 g, intravenous, Administer over 60 Minutes, NOW X1, 1 dose, On Sat02/08/24 at 1030, Routine New Bag 02/08/2024 13:15 EDT 2 g magnesium sulfate 2 g in water 50 mL 2 g, intravenous, Administer over 30 Minutes, NOW X1, 1 dose, On Sat02/11/24 at 0830, Routine New Bag 02/11/2024 9:20 EDT 2 g magnesium sulfate 2 g in water 50 mL 2 g, intravenous, Administer over 30 Minutes, NOW X1, 1 dose, On Sat02/12/24 at 1245, Routine New Bag 02/12/2024 12:52 EDT 2 g magnesium sulfate 2 g in water 50 mL 2 g, intravenous, Administer over 30 Minutes, Once (Time Specified), 1 dose, On Sat02/12/24 at 1800, Routine New Bag 02/12/2024 17:59 EDT 2 g magnesium sulfate 2 g in water 50 mL 2 g, intravenous, Administer over 60 Minutes, NOW X1, 1 dose, On 02/15/24 at 1145, Routine New Bag 02/15/2024 12:04 EDT 2 g magnesium sulfate 2 g in water 50 mL 2 g, intravenous, Administer over 60 Minutes, NOW X1, 1 dose, On Sat02/17/24 at 1615, Routine New Bag 02/17/2024 16:32 EDT 2 g magnesium sulfate IVPB 4 g 100 mL 4 g, intravenous, Administer over 120 Minutes, NOW X1, 1 dose, On Sat02/09/24 at 0930, Routine Given 02/09/2024 12:15 EDT 4 g 50 mL/hr melatonin tablet 9 mg 9 mg, oral, AT BEDTIME, First dose on Sat02/04/24 at 2100, Until Discontinued, Routine Given 02/19/2024 21:23 EDT 9 mg Given 02/18/2024 20:10 EDT 9 mg Given 02/17/2024 20:34 EDT 9 mg methocarbamoL (ROBAXIN) tablet 500 mg 500 mg, oral, 2 TIMES DAILY, First dose on Sat02/04/24 at 2100, Until Discontinued, Routine Given 02/06/2024 9:02 EDT 50 0 mg Given 02/05/2024 20:24 EDT 500 mg Given 02/05/2024 8:59 EDT 500 mg methocarbamoL (ROBAXIN) tablet 500 mg 500 mg, oral, 4 TIMES DAILY, First dose (after last modification) on [place] 24 at 1900, Until Discontinued, Routine Given 02/19/2024 12:03 EDT 500 mg Given 02/19/2024 9:00 EDT 500 mg Given 02/18/2024 20:10 EDT 500 mg methocarbamoL (ROBAXIN) tablet 500 mg 500 mg, oral, 4 TIMES DAILY PRN, Starting on Sat02/19/24 at 1630, Until Sat02/20/24 at 0025, Other, muscle spasms, Routine methylPREDNISolone sod suc(PF) (SOLU-MEDROL) injection 100 mg 100 mg, intravenous, PRN, 1 dose, Starting on Sat02/18/24 at 1638, Until Sat02/20/24 at 0025, Routine metoclopramide (REGLAN) injection 5 mg 5 mg, intravenous, NOW X1, 1 dose, On 02/08/24 at 2145, Routine Given 02/08/2024 21:48 EDT 5 mg metoclopramide HCl (REGLAN) tablet 5 mg 5 mg, oral, 3 TIMES DAILY BEFORE MEALS, First dose on Sat02/04/24 at 1745, Until Discontinued, Routine Given 02/19/2024 15:02 EDT 5 mg Given 02/19/2024 12:00 EDT 5 mg Given 02/19/2024 6:17 EDT 5 mg OLANZapine (ZYPREXA) tablet 20 mg 20 mg, oral, AT BEDTIME, First dose on Sat02/04/24 at 2100, Until Discontinued, Routine Given 02/19/2024 21:25 EDT 2 0 mg Given 02/18/2024 20:10 EDT 20 mg Given 02/17/2024 20:34 EDT 20 mg ondansetron (PF) (ZOFRAN) injection 4 mg 4 mg, intravenous, EVERY 4 HOURS PRN, Starting on Sat02/05/24 at 1027, Until Sat02/20/24 at 0025, Nausea, Routine Given by Other 02/12/2024 9:30 EDT 4 mg Given 02/12/2024 5:46 EDT 4 mg Given 02/11/2024 11:00 EDT 4 mg ondansetron (ZOFRAN-ODT) disintegrating tablet 4 mg 4 mg, oral, EVERY 4 HOURS PRN, Starting on Sat02/05/24 at 1027, Until Sat02/20/24 at 0025, Nausea, Routine Given 02/11/2024 21:10 EDT 4 mg Given 02/11/2024 4:54 EDT 4 mg Given 02/10/2024 6:13 EDT 4 mg oxyCODONE (ROXICODONE) immediate release tablet 5 mg 5 mg, oral, EVERY 4 HOURS PRN, Starting on Tiffanie 02/06/24 at 1901, Until Sat02/10/24 at 1759, Pain, Severe Pain 7-10, Routine Given 02/08/2024 13:12 EDT 5 mg Given 02/07/2024 20:29 EDT 5 mg Given 02/07/2024 15:34 EDT 5 mg oxyCODONE (ROXICODONE) immediate release tablet 5 mg 5 mg, oral, EVERY 6 HOURS PRN, Starting on Sat02/10/24 at 1800, Until Sat02/11/24 at 1135, Severe Pain 7-10, Routine Given 02/11/2024 8:19 EDT 5 mg Given 02/10/2024 20:25 EDT 5 mg pantoprazole (PROTONIX) injection 40 mg 40 mg, intravenous, DAILY, First dose on Sat02/08/24 at 1415, Until Discontinued, Routine Given 02/19/2024 9:02 EDT 40 mg Given 02/18/2024 9:27 EDT 40 mg Given 02/17/2024 9:39 EDT 40 mg pantoprazole (PROTONIX) tablet 40 mg 40 mg, oral, DAILY BEFORE BREAKFAST, First dose on Sat02/05/24 at 0700, Until Discontinued Given 02/08/2024 6:21 EDT 40 m g Given 02/07/2024 6:23 EDT 40 mg Given 02/06/2024 6:16 EDT 40 mg polyethylene glycol 3350 (MIRALAX) packet 17 g 17 g, oral, DAILY PRN, Starting on Sat02/04/24 at 1715, Until Sat02/05/24 at 1240, Constipation, Routine Given 02/05/2024 8:59 EDT 17 g polyethylene glycol 3350 (MIRALAX) packet 17 g 17 g, oral, 2 TIMES DAILY, First dose (after last modification) on Sat02/05/24 at 2100, Until Discontinued, Routine Given 02/12/2024 21:35 EDT 17 g Given 02/12/2024 9:31 EDT 17 g Given 02/11/2024 21:10 EDT 17 g polyethylene glycol 3350 (MIRALAX) packet 17 g 17 g, oral, DAILY, First dose (after last modification) on Sat02/14/24 at 0900, Until Discontinued, Routine Given 02/18/2024 9:37 EDT 17 g Given 02/14/2024 8:45 EDT 17 g polyethylene glycol 3350 (MIRALAX) packet 17 g 17 g, oral, 2 TIMES DAILY, First dose (after last modification) on Sat02/19/24 at 2100, Until Discontinued, Routine potassium chloride (MICRO-K) capsule 40 mEq 40 mEq, oral, NOW X1, 1 dose, On Tiffanie 02/06/24 at 0815, Routine Given 02/06/2024 9:01 EDT 40 mEq potassium chloride in water infusion 20 mEq 20 mEq, intravenous, at 50 mL/hr, NOW X1, 1 dose, On Sat02/09/24 at 1745, Routine Given 02/09/2024 18:22 EDT 20 mEq 50 mL/hr potassium chloride in water infusion 20 mEq 20 mEq, intravenous, at 50 mL/hr, NOW X1, 1 dose, On Sat02/10/24 at 1145, Routine Given 02/10/2024 12:40 EDT 20 mEq 50 mL/hr potassium chloride in water infusion 20 mEq 20 mEq, intravenous, at 50 mL/hr, NOW X1, 1 dose, On Sat02/11/24 at 0830, Routine Given 02/11/2024 10:42 EDT 20 mEq 50 mL/hr Prazosin (MINIPRESS) capsule 1 mg 1 mg, oral, AT BEDTIME, First dose on Sat02/04/24 at 2100, Until Discontinued, Routine Given 02/19/2024 21:25 EDT 1 mg Given 02/18/2024 20:10 EDT 1 mg Given 02/17/2024 20:34 EDT 1 mg pregabalin (LYRICA) capsule 100 mg 100 mg, oral, 2 TIMES DAILY, First dose on Sat02/04/24 at 2100, Until Discontinued, Routine Given 02/19/2024 21:22 EDT 1 00 mg Given 02/19/2024 9:02 EDT 100 mg Given 02/18/2024 20:10 EDT 100 mg prochlorperazine (COMPAZINE) tablet 5 mg 5 mg, oral, EVERY 6 HOURS PRN, Starting on Sat02/06/24 at 1146, Until Sat02/12/24 at 1224, Nausea, Routine Given 02/07/2024 11:19 EDT 5 mg Given 02/06/2024 12:10 EDT 5 mg propRANolol (INDERAL LA) SR capsule 60 mg 60 mg, oral, DAILY, First dose on Sat02/14/24 at 1845, Until Discontinued, Routine Given 02/19/2024 9:05 EDT 60 mg Given 02/18/2024 9:36 EDT 60 mg Given 02/17/2024 9:40 EDT 60 mg propRANolol (INDERAL) tablet 10 mg 10 mg, oral, 3 TIMES DAILY PRN, Starting on Sat02/04/24 at 1715, Until Sat02/20/24 at 0025, Other, see admin instruction, Routine Given 02/14/2024 14:33 EDT 10 mg Given 02/11/2024 21:10 EDT 10 mg Given 02/05/2024 8:59 EDT 10 mg psyllium husk (with sugar) (METAMUCIL) packet 1 Packet 1 Packet, oral, DAILY, First dose on Sat02/08/24 at 1030, Until Discontinued, Routine Given 02/12/2024 9:31 EDT 1 Packet Given 02/08/2024 10:47 EDT 1 Packet ramelteon (ROZEREM) tablet 8 mg 8 mg, oral, AT BEDTIME PRN, Starting on Sat02/04/24 at 1715, Until Sat02/20/24 at 0025, Sleep, Routine Given 02/04/2024 20:10 EDT 8 mg senna (SENOKOT) tablet 2 Tablet 2 Tablet, oral, 2 TIMES DAILY, First dose (after last modification) on Sat02/05/24 at 2100, Until Discontinued, Routine Given 02/13/2024 8:25 EDT 2 Tablets Given 02/12/2024 21:35 EDT 2 Tablets Given 02/12/2024 9:28 EDT 2 Tablets senna (SENOKOT) tablet 2 Tablet 2 Tablet, oral, AT BEDTIME, First dose (after last modification) on Tiffanie 02/13/24 at 2100, Until Discontinued, Routine Given 02/19/2024 21:26 EDT 2 Tablets Given 02/18/2024 20:10 EDT 2 Tablets Given 02/17/2024 20:35 EDT 2 Tablets documented in this encounter Discontinued Medications Medication Sig Discontinue Reason Start Date End Da te tiZANidine (ZANAFLEX) 2 mg tablet Take 1 Tablet by mouth daily. Patient stopped taking (will not send dc message to pharm) 01/14/2024 02/04/2024 senna (SENOKOT) 8.6 mg tablet Take 1 Tab by mouth 2 times daily as needed (Constipation). Patient stopped taking (will not send dc message to pharm) 03/30/2020 02/04/2024 polyethylene glycol (MIRALAX) 17 gram/dose powder Take 17 g by mouth daily. Patient stopped taking (will not send dc message to pharm) 03/31/2020 02/04/2024 ondansetron (ZOFRAN-ODT) 4 mg disintegrating tablet Take 1 Tablet by mouth every 8 hours as needed for Nausea. Patient stopped taking (will not send dc message to pharm) 02/25/2022 02/04/2024 magnesium oxide (MAG-OX) 400 mg (241.3 mg magnesium) tablet Take 1 Tablet by mouth daily. Patient stopped taking (will not send dc message to pharm) 02/04/2024 lactulose (CHRONULAC) 10 gram/15 mL solution TAKE 15 ML BY MOUTH EVERY DAY NEEDED Patient stopped taking (will not send dc message to pharm) 11/16/2020 02/04/2024 L.acid/L.casei/B.bif/B.l on/FOS (PROBIOTIC BLEND ORAL) Take by mouth. Patient stopped taking (will not send dc message to pharm) 02/04/2024 KETOTIFEN FUMARATE OPHTHALMIC Apply to eye. Patient stopped taking (will not send dc message to pharm) 02/04/2024 ketoconazole (NIZORAL) 2 % cream Apply to affected toenails once to twice a day. Patient stopped taking (will not send dc message to pharm) 07/23/2022 02/04/2024 GENTEAL TEARS MODERATE 0.1-0.3-0.2 % drops INSTILL 1 DROP IN BOTH EYES FOUR TIMES DAILY Patient stopped taking (will not send dc message to pharm) 02/04/2022 02/04/2024 dronabinoL (MARINOL) 2.5 mg capsule Take 1 capsule by mouth 2 times daily before lunch and dinner. Daily Max: 5 mg Patient stopped taking (will not send dc message to pharm) 03/28/2022 02/04/2024 clotrimazole (LOTRIMIN) 1 % cream APPLY TOPICALLY TO THE AFFECTED AREA TWICE DAILY FOR 28 DAYS Patient stopped taking (will not send dc message to pharm) 10/30/2022 02/04/2024 cholecalciferol, Vitamin D3, 25 mcg (1,000 unit) tablet Take 1 Tablet by mouth daily. Reported by caregiver Patient stopped taking (will not send dc message to pharm) 02/04/2024 documented as of this encounter Historical Medications * This list may reflect changes made after this encounter. ibuprofen (MOTRIN) 200 mg tablet Take 2 Tablets by mouth 3 times daily as needed for Pain. 09/18/2024 aspirin 81 mg EC tablet Take 1 Tablet by mouth daily. 03/20/2024 methocarbamoL (ROBAXIN) 500 mg tablet Take 1 Tablet by mouth 2 times daily. 02/25/2024 bisacodyL (DULCOLAX) 5 mg EC tablet Take 2 Tablets by mouth daily. 09/18/2024 added in this encounter Active and Recently Administered Medications Times are shown in EDT. Scheduled Medication Order 02/18/2024 02/19/2024 02/20/2024 acetaminophen (TYLENOL) tablet 650 mg (CANCELED) 650 mg, oral, 3 TIMES DAILY, First dose (after last modification) on Sat02/16/24 at 0900, Until Discontinued, Routine 0936 (Given - Provider: Omaira Tao RN)1434 (Given - Provider: Omaira Tao RN)2009 (Given - Provider: Marya Diaz RN) 0903 (Given - Provider: Kerline Bull, AZALEA)1502 (Given - Provider: Kerline Bull RN) acetaminophen (TYLENOL) tablet 975 mg 975 mg (rounded from 1,000 mg), oral, 3 TIMES DAILY, First dose (after last modification) on Sat02/19/24 at 2100, Until Discontinued, Routine 2123 (Given - Provider: Sung Scruggs, AZALEA) apixaban (ELIQUIS) tablet 2.5 mg 2.5 mg, oral, 2 TIMES DAILY, First dose on Sat02/19/24 at 2100, Until Discontinued, Routine 2124 (Given - Provider: Sung Scruggs RN) bisacodyL (DULCOLAX) EC tablet 10 mg 10 mg, oral, DAILY, First dose on Sat02/20/24 at 0900, Until Discontinued, Routine buPROPion (WELLBUTRIN SR) SR tablet 100 mg 100 mg, oral, 2 TIMES DAILY, First dose on Sat02/04/24 at 2100, Until Discontinued, Routine 935 (Given - Provider: Omaira Tao RN)2009 (Given - Provider: Marya Diaz, AZALEA) 902 (Given - Provider: Kerlien Bull, AZALEA)2122 (Given - Provider: Sung Scruggs RN) cefTRIAXone (ROCEPHIN) 1,000 mg in sodium chloride (NS MBP) 50 mL IVPB (CANCELED) 1,000 mg, intravenous, Administer over 30 Minutes, DAILY, 7 doses, First dose on Sat02/13/24 at 0915, Last dose on Sat02/19/24 at 0900, Type of Therapy: Definitive, Based on Cultures, Suspected Indication (Select all that apply): Urinary tract infection, Routine 932 (Given - Provider: Omaira Tao RN) folic acid (FOLVITE) tablet 1 mg 1 mg, oral, DAILY, First dose on Sat02/17/24 at 0900, Until Discontinued, Routine 935 (Given - Provider: Omaira Tao RN) 902 (Given - Provider: Kerline Bull RN) immune globulin (PRIVIGEN) 10 % injection 30 g 30 g, intravenous, DAILY, 5 doses, First dose (after last modification) on Sat02/18/24 at 1745, Last dose on Sat02/22/24 at 1400, Routine 1915 (New Bag - Provider: Omaira Tao RN - Comment: pt off floor for ct)1945 (Rate Change - Provider: Omaira Tao RN)2001 (Rate Change - Provider: Marya Diaz RN)2016 (Rate Change - Provider: Marya Diaz RN)2031 (Rate Change - Provider: Marya Diaz, AZALEA)2114 (Rate Change - Provider: Marya Diaz, AZALEA)2148 (Rate Change - Provider: Marya Diaz RN)220 (Rate Change - Provider: Marya Diaz, RN)221 (Rate Change - Provider: Marya Diaz, AZALEA)222 (Completed - Provider: Marya Diaz RN) 1459 (New Bag - Provider: Kerline Bull RN - Comment: 80.0 kg)1518 (Rate Change - Provider: Kerline Bull RN)1530 (Rate Change - Provider: Kerline Bull RN)1545 (Rate Change - Provider: Kerline Bull RN)1600 (Rate Change - Provider: Kerline Bull RN)1615 (Rate Change - Provider: Kerline Bull RN)1630 (Rate Change - Provider: Kerline Bull RN)1700 (Rate Change - Provider: Kerline Bull RN)1715 (Rate Change - Provider: Kerline Bull RN)1730 (Rate Change - Provider: Kerline Bull RN)1735 (Completed - Provider: eKrline Bull RN) iohexoL (OMNIPAQUE 350) solution 100 mL (COMPLETED) 100 mL, intravenous, Once in imaging, 1 dose, Starting on Sat02/18/24 at 1741, Until Sat02/18/24 at 1823, Routine 1823 (Given - Provider: Mee Reich) lactated ringers (LR) infusion (COMPLETED) at 100 mL/hr, 2,000 mL, intravenous, Once (Time Specified), 1 dose, On Sat02/18/24 at 1430, Routine 1427 (New Bag - Provider: Omaira Tao RN) lactated ringers (LR) infusion (COMPLETED) at 100 mL/hr, 1,000 mL, intravenous, Once (Time Specified), 1 dose, On Sat02/19/24 at 1615, Routine 1850 (New Bag - Provider: Kerline Bull RN - Comment: Waited for IVIG to finish) lactated ringers BOLUS 500 mL (COMPLETED) 500 mL, intravenous, NOW X1, 1 dose, On Sat02/19/24 at 2300, Routine 2300 (New Bag - Provider: Gordon Zaidi RN) magnesium (MAGTAB) ER tablet 84 mg 84 mg, oral, DAILY, First dose on Sat02/19/24 at 0900, Until Discontinued, Routine 902 (Given - Provider: Kerline Bull RN) magnesium oxide (MAG-OX) tablet 400 mg (CANCELED) 400 mg, oral, 2 TIMES DAILY, First dose on Sat02/16/24 at 1115, Until Discontinued, Routine 935 (Given - Provider: Omaira Tao RN)2009 (Given - Provider: Marya Diaz, AZALEA) 902 (Given - Provider: Kerline Bull RN) melatonin tablet 9 mg 9 mg, oral, AT BEDTIME, First dose on Sat02/04/24 at 2100, Until Discontinued, Routine 2009 (Given - Provider: Marya Diaz RN) 2122 (Given - Provider: Sung Scruggs RN) methocarbamoL (ROBAXIN) tablet 500 mg (CANCELED) 500 mg, oral, 4 TIMES DAILY, First dose (after last modification) on Sat02/06/24 at 1900, Until Discontinued, Routine 935 (Given - Provider: Omaira Tao RN)1137 (Given - Provider: Omaira Tao RN)1659 (Given - Provider: Omaira Tao RN)2009 (Given - Provider: Marya Diaz RN) 09 (Given - Provider: Kerline Bull RN)1203 (Given - Provider: Kerline Bull RN) metoclopramide HCl (REGLAN) tablet 5 mg 5 mg, oral, 3 TIMES DAILY BEFORE MEALS, First dose on Sat02/04/24 at 1745, Until Discontinued, Routine 604 (Not Given - Provider: Justina Earl RN - Reason: Patient/family refused)1137 (Given - Provider: Omaira Tao RN)165 (Given - Provider: Omaira Tao RN) 0617 (Given - Provider: Marya Diaz RN)1200 (Given - Provider: Kerline Bull, AZALEA)1502 (Given - Provider: Kerline Bull RN) OLANZapine (ZYPREXA) tablet 20 mg 20 mg, oral, AT BEDTIME, First dose on Sat02/04/24 at 2100, Until Discontinued, Routine 2009 (Given - Provider: Marya Diaz RN) 2124 (Given - Provider: Sung Scruggs RN) pantoprazole (PROTONIX) injection 40 mg 40 mg, intravenous, DAILY, First dose on Sat02/08/24 at 1415, Until Discontinued, Routine 926 (Given - Provider: Omaira Tao RN) 901 (Given - Provider: Kerline Bull RN) polyethylene glycol 3350 (MIRALAX) packet 17 g (CANCELED) 17 g, oral, DAILY, First dose (after last modification) on Sat02/14/24 at 0900, Until Discontinued, Routine 936 (Given - Provider: Omaira Tao RN) 902 (Not Given - Provider: Kerline Bull RN - Reason: Patient/family refused) polyethylene glycol 3350 (MIRALAX) packet 17 g 17 g, oral, 2 TIMES DAILY, First dose (after last modification) on Sat02/19/24 at 2100, Until Discontinued, Routine 2125 (Not Given - Provider: Sung Scruggs RN - Reason: Patient/family refused) Prazosin (MINIPRESS) capsule 1 mg 1 mg, oral, AT BEDTIME, First dose on Sat02/04/24 at 2100, Until Discontinued, Routine 2009 (Given - Provider: Marya Diaz RN) 2124 (Given - Provider: Sung Scruggs RN) pregabalin (LYRICA) capsule 100 mg 100 mg, oral, 2 TIMES DAILY, First dose on Sat02/04/24 at 2100, Until Discontinued, Routine 935 (Given - Provider: Omaira Tao RN)2009 (Given - Provider: Marya Diaz RN) 901 (Given - Provider: Kerline Bull RN)2121 (Given - Provider: Sung Scruggs RN) propRANolol (INDERAL LA) SR capsule 60 mg 60 mg, oral, DAILY, First dose on Sat02/14/24 at 1845, Until Discontinued, Routine 935 (Given - Provider: Omaira Tao RN) 904 (Given - Provider: Kerline Bull RN) senna (SENOKOT) tablet 2 Tablet 2 Tablet, oral, AT BEDTIME, First dose (after last modification) on Sat02/13/24 at 2100, Until Discontinued, Routine 2009 (Given - Provider: Marya Diaz, RN) 2125 (Given - Provider: Sung Scruggs RN) senna (SENOKOT) tablet 2 Tablet 2 Tablet, oral, AT BEDTIME, First dose on Sat02/20/24 at 0115, Until Discontinued, Routine PRN Medication Order 02/18/2024 02/19/2024 02/20/2024 alteplase (CATHFLO ACTIVASE) injection 2 mg 2 mg, intercatheter, PRN, Starting on Sat02/11/24 at 1345, Until Sat02/20/24 at 0025, Line Care, Routine aluminum & magnesium hydroxide-simethicone (MAALOX PLUS) 200-200-20 mg/5 mL suspension 30 mL 30 mL, oral, EVERY 6 HOURS PRN, Starting on Sat02/07/24 at 1117, Until Tiffanie 02/20/24 at 0025, Indigestion, Routine calcium carbonate (TUMS) tablet 500 mg (200 mg elemental calcium) 2 Tablet 2 Tablet, oral, EVERY 6 HOURS PRN, Starting on Sat02/04/24 at 1715, Until Sat02/20/24 at 0025, Indigestion, Routine carbamide peroxide (DEBROX) 6.5 % otic solution 5 Drop 5 Drop, both ears, 4 TIMES DAILY PRN, Starting on 02/08/24 at 1525, Until Tiffanie 02/20/24 at 0025, Other, Routine diphenhydrAMINE (BENADRYL) injection 50 mg 50 mg, intravenous, PRN, 1 dose, Starting on Sat02/18/24 at 1638, Until Tiffanie 02/20/24 at 0025, administer for rash, itching and/or hives associated with a mild to moderate infusion reaction OR after epinephrine IM for an anaphylactic reaction., Routine EPINEPHrine (ADRENALIN) injection 0.3 mg 0.3 mg, intramuscular, PRN, 1 dose, Starting on Sat02/18/24 at 1638, Until Tiffanie 02/20/24 at 0025, for hypotension and/or airway obstruction symptoms related to an infusion or allergic reaction., Routine HYDROmorphone (DILAUDID) tablet 1 mg 1 mg, oral, EVERY 12 HOURS PRN, Starting on Sat02/19/24 at 1625, Until Sat02/20/24 at 0025, Severe Pain 7-10, Routine lactulose retention enema (200 gm/300 mL lactulose + 700 mL tap water) 200 g 200 g, rectal, 2 TIMES DAILY PRN, Starting on Sat02/16/24 at 1100, Until Sat02/20/24 at 0025, Constipation, NO BM in 48hrs, Routine lidocaine (GLYDO/URO-JET) 2 % jelly in applicator topical, PRN, Starting on Sat02/12/24 at 1909, Until Sat02/20/24 at 0025, Pain lidocaine (PF) 10 mg/mL (1 %) injection 2 mg 2 mg, intradermal, PRN, 4 doses, Starting on Sat02/04/24 at 1715, Until Sat02/20/24 at 0025, peripheral intravenous catheter placement, Routine lidocaine (PF) 10 mg/mL (1 %) injection 5 mg 5 mg, intradermal, PRN, 2 doses, Starting on Sat02/11/24 at 1345, Until Sat02/20/24 at 0025, line placement, Routine methocarbamoL (ROBAXIN) tablet 500 mg 500 mg, oral, 4 TIMES DAILY PRN, Starting on Sat02/19/24 at 1630, Until Sat02/20/24 at 0025, Other, muscle spasms, Routine methylPREDNISolone sod suc(PF) (SOLU-MEDROL) injection 100 mg 100 mg, intravenous, PRN, 1 dose, Starting on Sat02/18/24 at 1638, Until Sat02/20/24 at 0025, Routine ondansetron (PF) (ZOFRAN) injection 4 mg(Linked Group 1) 4 mg, intravenous, EVERY 4 HOURS PRN, Starting on Sat02/05/24 at 1027, Until Sat02/20/24 at 0025, Nausea, Routine ondansetron (ZOFRAN-ODT) disintegrating tablet 4 mg(Linked Group 1) 4 mg, oral, EVERY 4 HOURS PRN, Starting on Sat02/05/24 at 1027, Until Sat02/20/24 at 0025, Nausea, Routine polyethylene glycol 3350 (MIRALAX) packet 17 g 17 g, oral, DAILY PRN, Starting on Sat02/20/24 at 0045, Until Sat02/20/24 at 0045, Constipation, Routine propRANolol (INDERAL) tablet 10 mg 10 mg, oral, 3 TIMES DAILY PRN, Starting on Sat02/04/24 at 1715, Until Sat02/20/24 at 0025, Other, see admin instruction, Routine ramelteon (ROZEREM) tablet 8 mg 8 mg, oral, AT BEDTIME PRN, Starting on Sat02/04/24 at 1715, Until Sat02/20/24 at 0025, Sleep, Routine Linked Groups Order Group 1: ondansetron (ZOFRAN-ODT) disintegrating tablet 4 mgJump to med 4 mg, oral, EVERY 4 HOURS PRN, Starting on Sat02/05/24 at 1027, Until Sat02/20/24 at 0025, Nausea, Routine Or ondansetron (PF) (ZOFRAN) injection 4 mgJump to med 4 mg, intravenous, EVERY 4 HOURS PRN, Starting on Sat02/05/24 at 1027, Until Sat02/20/24 at 0025, Nausea, Routine documented in this encounter Orders Medications Ordered That Babak ht Not Have Been Administered Count Last Ordered Date First Ordered Date polyethylene glycol 3350 (MN RALAX) packet 17 g 2 02/20/2024 02/19/2024 senna (SENOKOT) tablet 2 Tablet 2 4 02/04/2024 bisacodyL (DULCOLAX) EC tablet 10 mg 1 01/24 HYDROmorphone (DILAUDID) tablet 1 mg 1 01/24 methocarbamoL (ROBAXIN) tablet 500 mg 1 sodium chloride 0.9 % BOLUS 500 mL 1 2023 diphenhydrAMINE (BENADRYL) injection 50 mg 1 02/18/2024 EPINEPHrine (ADRENALIN) injection 0.3 mg 1 02/18/2024 immune globulin (PRIVIGEN) 1 0 % injection 30 g 1 02/18/2024 methylPREDNISolone sod suc(P F) (SOLU-MEDROL) injection 100 mg 1 02/18/2024 bisacodyL (DULCOLAX) suppository 10 mg 1 cyanocobalamin (VITAMIN B12) injection 1,000 mcg 1 02/16/2024 lactulose retention enema (2 00 gm/300 mL lactulose + 700 mL tap water) 200 g 2 02/16/202401/23 metoprolol TARtrate (LOPRESS OR) tablet 25 mg 2 02/14/2024 lactulose (CHRONULAC) 20 gra m/30 mL solution 30 mL 1 02/12/2024 lidocaine (GLYDO/URO-JET) 2 % jelly in applicator 2 02/12/2024 02/10/2024 alteplase (CATHFLO ACTIVASE) injection 2 mg 1 02/11/2024 ibuprofen (MOTRIN) tablet 600 mg 1 02/11/20 lidocaine (PF) 10 mg/mL (1 % ) injection 5 mg 1 02/11/2024 magnesium sulfate 1 g in dex trose 5% 100 mL 1 02/11/2024 potassium chloride SA (KLOR- CON M20) tablet 20 mEq 1 02/11/2024 HYDROmorphone (PF) (DILAUDID ) 0.5 mg/0.5 mL syringe 0.3 mg 1 02/10/2024 potassium chloride (KAYCIEL) 20 mEq/15 mL oral solution 40 mEq 2 02/09/2024 02/08/2024 potassium chloride in water infusion 20 mEq 1 02/09/2024 lidocaine (XYLOCAINE) 2 % jelly 1 aluminum & magnesium hydroxi de-simethicone (MAALOX PLUS) 200-200-20 mg/5 mL suspension 30 mL 1 02/07/2024 potassium chloride SA (KLOR- CON M20) tablet 40 mEq 1 02/07/2024 sodium phosphate (FLEET SALI NE) enema 1 Enema 1 02/05/2024 acetaminophen (OFIRMEV) IV s olution 1,000 mg 1 02/04/2024 calcium carbonate (TUMS) tab let 500 mg (200 mg elemental calcium) 2 Tablet 1 02/04/2024 lidocaine (PF) 10 mg/mL (1 % ) injection 2 mg 1 02/04/2024 EKG Orders Without Results Count Last Ordered D ate First Ordered Date EKG 12-LEAD 1 02/05/2024 Nursing Count Last Ordered Date First Orde red Date VITAL SIGNS 2 02/18/2024 MEASURE WEIGHT 1 02/17/2024 ORTHOSTATIC VITAL SIGNS 1 02/17/2024 CALL HOSPITALIST FOR ADM/REF [facility] TO [facility] NURSE 1 02/04/2024 Consult Count Last Ordered Date First Orde red Date CONSULT NUTRITION 1 02/11/2024 Admission Count Last Ordered Date First Orde red Date ADMIT TO INPATIENT 1 02/05/2024 OUTPATIENT WITH OBSERVATION SERVICES (INITIATE OBSERVATION STATUS) 1 02/04/2024 Discharge Count Last Ordered Date First Orde red Date DISCHARGE PATIENT 1 02/19/2024 Consult to Surgery Count Last Ordered Date Firs t Ordered Date CONSULT GENERAL SURGERY 1 02/09/2024 Consult to Neurology Count Last Ordered Date Fi rst Ordered Date CONSULT NEUROLOGY 2 02/17/2024 02/14/2024 documented in this encounter Care Teams Senior Project Architect Relationship Specialty Start Date End Date Romario Hairston MD [id number] [place] [address] PCP - General 07/06/20 documented as of this encounter
--- OUTSIDE RECORDS SUMMARY | 2024-12-03 15:52 | XMS_ITS | Encounter Summary ---
Author Organization [facility] Address [address] [place] [address] Care Team Providers Care Clock And Watch Hands Painter Name Role Phone Romario Hairston MD Primary Care Provider +1- [phone] Encounter Details Date Type Department Care Team (Latest Contact Info) Description 01/28/2024 Transcribe Orders [facility] Lab - Main [address] [phone] Romario Hairston MD [address] [place] [address] Generalized abdominal pain (Primary Dx); Depression, unspecified depression type; Vitamin D deficiency; Polyneuropathy Social History Tobacco Use Types Packs/Day Years [...] Jostin Henry RN documented in this encounter Plan of Treatment Upcoming Encounters Date Type Department Care Team (Late st Contact Info) Description 03/04/2025 14:00 EDT Telemedicine [facility] Neurology Clinic [address] [place] [phone] Brayan Polk MD [address] [facility] [address] [place] [phone] 07/14/2025 14:30 EDT Office Visit [facility] Cancer Center Hematology & Oncology - [address] [address] Evin Maria MD [address] [place] [address], [address] [place] [phone] Scheduled Orders Name Type Priority Associated Diagnoses Orde r Schedule LIPASE Lab Routine Generalized abdominal pain Depression, unspecified depression type Vitamin D deficiency Polyneuropathy Ordered: 01/28/2024 THYROID CASCADE Lab Routine Generalized abdominal pain Depression, unspecified depression type Vitamin D deficiency Polyneuropathy Ordered: 01/28/2024 VITAMIN B12 Lab Routine Generalized abdominal pain Depression, unspecified depression type Vitamin D deficiency Polyneuropathy Ordered: 01/28/2024 VITAMIN D (25,[place]) Lab Routine Generalized abdominal pain Depression, unspecified depression type Vitamin D deficiency Polyneuropathy Ordered: 01/28/2024 AMYLASE Lab Routine Generalized abdominal pain Depression, unspecified depression type Vitamin D deficiency Polyneuropathy Ordered: 01/28/2024 COMPREHENSIVE METABOLIC PANEL (CMP) Lab Routine Generalized abdominal pain Depression, unspecified depression type Vitamin D deficiency Polyneuropathy Ordered: 01/28/2024 COMPLETE BLOOD COUNT AND DIFFERENTIAL Lab Routine Generalized abdominal pain Depression, unspecified depression type Vitamin D deficiency Polyneuropathy Ordered: 01/28/2024 documented as of this encounter Visit Diagnoses Diagnosis Generalized abdominal pain- Primary Abdominal pain, generalized Depression, unspecified depression type Vitamin D deficiency Unspecified vitamin D deficiency Polyneuropathy Unspecified hereditary and idiopathic peripheral neuropathy documented in this encounter Additional Health Concerns Infection Onset Date Last Indicated Resolved Time R/O COVID-19 01/28/2024 01/28/2024 01/29/2024 0:27 EST documented as of this encounter Care Teams Clock And Watch Hands Painter Relationship Specialty Start Date End Date Romario Hairston MD [facility] [place] [address] PCP - General 07/06/20 documented as of this encounter
--- OUTSIDE RECORDS SUMMARY | 2024-12-03 15:52 | XMS_ITS | Encounter Summary ---
Author Organization [facility] Address [address] [place] [address] Care Team Providers Care Pipefitter Name Role Phone Romario Hairston MD Primary Care Provider +1- [phone] Encounter Details Date Type Department Care Team (Latest Contact Info) Description 01/28/2024 Travel Social History Tobacco Use Types Packs/Day Years [...] Jostin Chaudhary RN documented in this encounter Plan of Treatment Upcoming Encounters Date Type Department Care Team (Late st Contact Info) Description 03/04/2025 14:00 EDT Telemedicine [facility] Neurology Clinic [address] [place] [address] Brayan Polk MD [address] [facility] [address] [place] [phone] 07/14/2025 14:30 EDT Office Visit [facility] Cancer Center Hematology & Oncology - [address] [phone] Evin Maria MD [address] [place] [address], Level 2 [place] [address] documented as of this encounter Visit Diagnoses Not on filedocumented in this encounter Additional Health Concerns Infection Onset Date Last Indicated Resolved Time R/O COVID-19 01/28/2024 01/28/2024 01/29/2024 0:27 EST documented as of this encounter Care Teams Pipefitter Relationship Specialty Start Date End Date Romario Hairston MD [address], [address] [phone] PCP - General 07/06/20 documented as of this encounter
--- OUTSIDE RECORDS SUMMARY | 2024-12-03 15:52 | XMS_ITS | Encounter Summary ---
Author Organization [facility] Address [address] [place] [address] Care Team Providers Care Private Branch Exchange Service Advisor Name Role Phone Romario Hairston MD Primary Care Provider +1- [phone] Reason for Visit * Reason Comments Follow-up Encounter Details Date Type Department Care Team (Late st Contact Info) Description 09/11/2023 13:30 EDT Office Visit [facility] Cancer Center Hematology & Oncology - [address] [address] Evin Maria MD [address] [place] [address], [address] 2 [place] [address] History of thrombosis (Primary Dx) Social History Tobacco Use Types Packs/Day Years Used Date Smoking Tobacco: Every Day Cigarettes 0.3 15 Smokeless Tobacco: Never Tobacco Cessation:Ready to Q uit: Not Asked; Counseling Given: Not Answered Alcohol Use Standard Drinks/Week Comments Never 0 [...] Sign Reading Time Taken Comments Blood Pressure 131/90 09/11/2023 1316 EDT Pulse 80 09/11/2023 1316 EDT Temperature 35.3 ??C (95.5 ??F) 09/11/2023 1316 EDT Respiratory Rate 16 09/11/2023 1316 EDT Oxygen Saturation 95% 09/11/2023 1316 EDT Inhaled Oxygen Concentration - - Weight 94.3 kg (207 lb 14.4 oz) 09/11/2023 1316 EDT Height - - Body Mass Index 34.6 05/23/2023 0756 EDT documented in this encounter Functional Status [...] Jostin Henry RN documented in this encounter Progress Notes * Evin Maria MD - 09/11/2023 1330 EDT Thrombosis & Hemostasis Program (THP) Follow Up Visit Date of Service: 09/11/2023 Problem List: Patient Active Problem List Diagnosis Date Noted ??? Primary hypercoagulable state ([facility]) 03/23/2020 Thrombosis Events A. 11/17/2019: Right greater saphenous [...] apixaban 2.5mg PO BID for secondary prevention. ??? Neurogenic bladder as late effect of cerebrovascular accident (CVA) 06/11/2022 ??? Severe protein-calorie malnutrition (HCC-CMS) 03/28/2022 ??? Insomnia due to other mental disorder (CODE) 03/06/2022 ??? Focal epilepsy (HCC-CMS) 02/16/2022 ??? Procedure and treatment not carried out for other reasons 08/30/2021 ??? Solitary pulmonary nodule 08/11/2021 ??? Paresthesia of skin 01/29/2021 ??? Tremor, unspecified 12/07/2020 ??? Other specified postprocedural states 10/27/2020 ??? Solitary cyst of right breast 10/27/2020 ??? Encounter for insertion or removal of intrauterine contraceptive device 02/12/2020 ??? Nicotine dependence, unspecified, uncomplicated 02/12/2020 ??? Perimenopausal 02/12/2020 ??? Tobacco abuse 12/02/2012 ??? Chronic low back pain 10/13/2012 ??? Back pain 09/25/2012 ??? Left-sided nontraumatic intracerebral hemorrhage (HCC-CMS) 03/02/2020 Status post decompressive hemicraniectomy Chief Complaint Patient presents with ??? Follow-up HPI: Ms. White is doing really well. She continues to improve neurologically - abet slowly. She is living independently with the help of her sister. She cannot cook with an oven or burner, but canmicrowave. She is not having any bruising or bleeding on apixaban. She is planning on having a dental extraction of ~5 teeth, but is unsure of the date. She is not taking aspirin. ROS: (Intake form with complete ROS reviewed and scanned into PRISM) Pertinent positives: See HPI Pertinent negatives: See HPI Social History: Patient reports that she has been smoking cigarettes. She has a 3.8 pack-year smoking history. She has never used smokeless tobacco. She reports that she does not drink alcohol and does not use drugs. Social History Social History Narrative ??? Not on file Medications: Artificial Tear([id number]), L.acid/L.casei/B.bif/B.boyd/FOS, OLANZapine, Prazosin, acetaminophen, apixaban, aspirin chewable, buPROPion, cholecalciferol (Vitamin D3), clotrimazole, droNABinol, ketoconazole, ketotifen fumarate, lactulose, magnesium oxide, melatonin, methocarbamoL, metoclopramide HCl, omeprazole, ondansetron, polyethylene glycol, pregabalin, propRANolol, and senna Allergies: Patient is allergic to citalopram, duloxetine, gabapentin, levetiracetam, trazodone, and zolpidem. Physical Exam: Vitals: 09/11/23 1316 BP: 131/90 Pulse: 80 Resp: 16 Temp: (!) 35.3 ??C (95.5 ??F) TempSrc: Skin SpO2: 95% Weight: 94.3 kg (207 lb 14.4 oz) Estimated body mass index is 34.6 kg/m?? as calculated from the following: Height as of 05/23/23: 165.1 cm (65). Weight as of this encounter: 94.3 kg (207 lb 14.4 oz). General appearance: alert, cooperative, no distress Head: Normocephalic, without obvious abnormality, atraumatic Neck: supple, symmetrical, trachea midline and no JVD Lymph nodes: Cervical, supraclavicular, and axillary nodes normal. Lungs: clear to auscultation bilaterally, non labored breathing Heart: regular rate and rhythm, S1, S2 normal, no murmur, click, rub or gallop Abdomen: normal findings: bowel sounds normal Mental Status: awake and alert; oriented to person, place, and time Extremities: extremities warm, atraumatic, no cyanosis or edema Skin: Skin color, temperature, turgor normal. No rashes or lesions Evin Maria MD 09/11/2023 14:07 Labs: Basic Metabolic Panel Lab Results Component Value Date NA 140 08/01/2022 K 4.9 08/01/2022 CL 103 08/01/2022 CO2 25 08/01/2022 BUN 13 08/01/2022 CREATININE 0.83 08/01/2022 CALCGFR 84 08/01/2022 CAION 1.09 (L) 03/08/2022 CALCIUM 9.9 08/01/2022 CALCCA 9.2 03/08/2022 MG 1.5 (L) 03/28/2022 PHOS 4.6 (H) 03/28/2022 Gastrointestinal Lab Results Component Value Date ALKPHOS 124 08/01/2022 AST 30 08/01/2022 ALT 29 08/01/2022 AMMONIA <9 03/15/2022 CONJBILI 0.0 05/07/2001 UNCONJBILI 0.3 05/07/2001 TBIL 0.6 08/01/2022 TP 7.4 08/01/2022 LABALBU 4.6 08/01/2022 AGRATIO 1.6 08/01/2022 LIPASE 38 02/22/2022 Complete Blood Count Lab Results Component Value Date ABO AB 07/12/2020 WBC 4.41 08/01/2022 RBC 4.81 08/01/2022 HGB 12.4 08/01/2022 HCT 39.0 08/01/2022 MCV 81 08/01/2022 MCH 25.8 (L) 08/01/2022 MCHC 31.8 (L) 08/01/2022 PLT 163 08/01/2022 MPV 11.6 08/01/2022 RDWCV 16.1 (H) 08/01/2022 Differential (Absolute) Lab Results Component Value Date DIFFTYPE Auto 08/01/2022 NEUTROABS 2.83 08/01/2022 LYMPHSABS 1.19 08/01/2022 MONOSABS 0.36 08/01/2022 EOSABS 0.00 (L) 08/01/2022 BASOSABS 0.03 05/07/2001 Anemia Lab Results Component Value Date [id number] 486 03/08/2022 Thrombosis Panel Lab Results Component Value Date PROTIME 13.3 07/17/2020 INR 1.1 07/17/2020 PTT 35 07/17/2020 ANTITHROM 129 (H) 07/08/2020 [id number] 215 (H) 07/08/2020 PROTCCLOT 147 07/08/2020 PROTCCLOT 147 07/08/2020 PROTSCLOT 127 07/08/2020 DRVVT 40.1 (H) 07/08/2020 DRVVT 40.1 sec 07/08/2020 Imaging: NA Assessment: Ms. 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 Given her presentation, the risks of anticoagulation are less than the benefits, and as she is not having any bruising or bleeding, we will continue her on anticoagulation for now. She is improving slowly neurologically and now lives alone with her sisters support. In terms of aspirin, she did not have an atherosclerotic stroke, but a hypercoagulable stroke and is on apixaban. There is no indication for aspirin for secondary prevention in this setting. Plan: 1. Secondary prevention of VTE A. Continue Apixaban 2.5mg PO BID. B. Annual CBCd and basic metabolic panel - ordered for today. C. THP should be involved with any procedures requiring anticoagulation interrutpion. 2. Follow-up 1 year with Fay Mckeon. I spent a total of 40 minutes on the date of this encounter meeting with the patient and reviewing documentation/coordinating care as described in the above note. No procedures were performed at the time of the visit. Please contact my office with questions/concerns. Evin Maria M.D. 09/11/2023 14:07 cc: Romario Hairston documented in this encounter Plan of Treatment Upcoming Encounters Date Type Department Care Team (Late st Contact Info) Description 03/04/2025 14:00 EDT Telemedicine [facility] Neurology Clinic [address] [place] [address] Brayan Polk MD 130 [facility] [address] [place] [address] 07/14/2025 14:30 EDT Office Visit [facility] Cancer Center Hematology & Oncology - [facility] [address] [place], [place] [phone] Evin Maria MD 111 [facility], [facility], Level 2 [place] [address] documented as of this encounter Results * (ABNORMAL) BASIC METABOLIC PANEL (BMP) (10/09/2023 12:26 EST) Sodium 138 136 - 145 mmol/L 10/09/2023 13:14 [facility] Potassium 4.8 3.5 - 5.0 mmol/L 10/09/2023 13:14 [facility] Chloride 105 96 - 110 mmol/L 10/09/2023 13:14 [facility] CO2 Total 24 22 - 32 mmol/L 10/09/2023 13:14 [facility] Anion Gap 9 5 - 14 mmol/L 10/09/2023 13:14 [facility] Glucose 106(H) 70 - 99 mg/dl 10/09/2023 13:14 [facility] Calcium 9.7 8.5 - 10.5 mg/dL 10/09/2023 13:14 [facility] BUN 13 10 - 26 mg/dL 10/09/2023 13:14 [facility] Creatinine 0.97 0.52 - 1.04 mg/dL 10/09/2023 13:14 [facility] eGFR 69 >60 mL/min/1.73 m2 10/09/2023 13:14 [facility] Blood VENOUS BLOOD / Unknown Venipuncture / Unknown 10/09/2023 12:26 EST 10/09/2023 12:32 EST us Evin Maria MD CHEMISTRY & BLOOD GAS ORDERABLES Final Result [facility] [address] [place] [id number] * (ABNORMAL) COMPLETE BLOOD COUNT AND DIFFERENTIAL (10/09/2023 12:26 EST) WBC 6.50 4.00 - 12.40 K/cmm 10/09/2023 12:40 [facility] RBC 5.04 3.86 - 5.04 M/cmm 10/09/2023 12:40 [facility] Hemoglobin 14.6 11.6 - 15.2 g/dL 10/09/2023 12:40 [facility] HCT 45.3(H) 34.9 - 44.4 % 10/09/2023 12:40 [facility] MCV 90 81 - 98 fL 10/09/2023 12:40 [facility] MCH 29.0 26.7 - 33.3 pg 10/09/2023 12:40 [facility] MCHC 32.2 32.1 - 35.9 g/dL 10/09/2023 12:40 [facility] RDW-CV 16.5(H) <14.7 % 10/09/2023 12:40 [facility] RDW-SD 53.6(H) <50.4 fl 10/09/2023 12:40 [facility] PLT 189 141 - 377 K/cmm 10/09/2023 12:40 [facility] MPV 11.3 9.5 - 12.7 fL 10/09/2023 12:40 [facility] % Neutrophils 62.0 % 10/09/2023 12:40 [facility] % Lymphocytes 30.2 % 10/09/2023 12:40 [facility] % Monocytes 4.8 % 10/09/2023 12:40 [facility] % Eosinophils 2.5 % 10/09/2023 12:40 [facility] % Basophils 0.3 % 10/09/2023 12:40 [facility] % Immature Grans 0.2 % 10/09/20 12:40 [facility] Absolute Neutrophils 4.04 2.20 - 8.85 K/cmm 10/09/2023 12:40 [facility] Absolute Lymphocytes 1.96 1.09 - 3.30 K/cmm 10/09/2023 12:40 [facility] Absolute Monocytes 0.31 0.10 - 0.80 K/cmm 10/09/2023 12:40 [facility] Absolute Eosinophils 0.16 0.03 - 0.61 K/cmm 10/09/2023 12:40 [facility] ABS Basophils 0.02 0.01 - 0.11 K/cmm 10/09/2023 12:40 [facility] Absolute Immature Grans 0.01 0.00 - 0.06 K/cmm 10/09/2023 12:40 [facility] Type of Differential: Auto 10/09/2023 12:40 [facility] Blood VENOUS BLOOD / Unknown Venipuncture / Unknown 10/09/2023 12:26 EST 10/09/2023 12:31 EST Evin Maria MD PACKAGES & DNA PROBE ORDERABLES Final Result [facility] [address] [place] [address] documented in this encounter Visit Diagnoses Diagnosis History of thrombosis- Primary Personal history of venous thrombosis and embolism documented in this encounter Discontinued Medications Medication Sig Discontinue Reason Start Date End Da te aspirin chewable 81 mg tablet Take 1 Tablet by mouth daily. Therapy completed 09/11/2023 documented as of this encounter Historical Medications * This list may reflect changes made after this encounter. magnesium oxide (MAG-OX) 400 mg (241.3 mg magnesium) tablet Take 1 Tablet by mouth daily. 02/04/2024 KETOTIFEN FUMARATE OPHTHALMIC Apply to eye. 02/04/2024 added in this encounter Care Teams Private Branch Exchange Service Advisor Relationship Specialty Start Date End Date Romario Hairston MD [address] [place] [address] PCP - General 07/06/20 documented as of this encounter
--- OUTSIDE RECORDS SUMMARY | 2024-12-03 15:52 | XMS_ITS | Encounter Summary ---
Author Organization [facility] Address [address] [place] [address] Care Team Providers Care Environmental Attorney Name Role Phone Romario Hairston MD Primary Care Provider +1- [phone] Reason for Visit * Reason Onset Date Comments Other 12/05/2023 Encounter Details Date Type Department Care Team (Late st Contact Info) Description 12/05/2023 Telephone [facility] [address] [place] [address] Vashti Grover RN Other Social History Tobacco Use Types Packs/Day [...] Jostin Chaudhary RN documented in this encounter Miscellaneous Notes * Telephone Encounter - Vashti Grover RN - 12/06/2023 1335 EST Number called was wrong number for Ynes. I left a voice mail message for her sister and guardian. * Telephone Encounter - Vashti Grover RN - 12/06/2023 1323 EST Left a voice mail message asking Ynes or her sister to call back with an update on Ynes's status. Left call back info. * Telephone Encounter - Vashti Grover RN - 12/05/[address] Polk asked if I would call Ynes to make sure she is doing OK from a neurological standpoint now that Ever is out of the picture and Ynes no showed today's visit. documented in this encounter Plan of Treatment Upcoming Encounters Date Type Department Care Team (Late st Contact Info) Description 03/04/2025 14:00 EDT Telemedicine [facility] Neurology Clinic [address] [place] [address] Brayan Polk MD [address] [place] [address]A [address] [place] [address] 07/14/2025 14:30 EDT Office Visit [facility] Cancer Center Hematology & Oncology - [address] [phone] Evin Maria MD 111 [facility], [facility], [address] [place] [address] documented as of this encounter Visit Diagnoses Not on filedocumented in this encounter Care Teams Environmental Attorney Relationship Specialty Start Date End Date Romario Hairston MD [address], [address] [id number] PCP - General 07/06/20 documented as of this encounter
--- OUTSIDE RECORDS SUMMARY | 2024-12-03 15:52 | XMS_ITS | Encounter Summary ---
Author Organization [facility] Address [address] [place] [address] Care Team Providers Care Material Control Clerk Name Role Phone Romario Hairston MD Primary Care Provider +1- [phone] Encounter Details Date Type Department Care Team (Late st Contact Info) Description 10/09/2023 11:55 EST Phlebotomy Only [facility] - Outpatient Phlebotomy Drawing [address] [place] [address] Lab, [facility] Op Phlebotomy History of thrombosis Social History Tobacco Use Types Packs/Day Years [...] of Assessment Author Yes 03/07/2022 13:33 EDT Chaudhary, Jostin le, RN * Do you have difficulty dressing [...] Contact Info) Description 03/04/2025 14:00 EDT Telemedicine [facility] Neurology Clinic [address] [place] [id number] Brayan Polk MD [address] [place] [address] [place] [phone] 07/14/2025 14:30 EDT Office Visit [facility] Cancer Center Hematology & Oncology - [address] [address] Evin Maria MD [address] [place] [address], [facility] [address] [place] [address] documented as of this encounter Procedures Procedure Name Priority Date/Time Associated Diagnosis Comments COMPLETE BLOOD COUNT AND DIFFERENTIAL Routine 10/09/2023 12:26 EST History of thrombosis BASIC METABOLIC PANEL (BMP) Routine 10/09/2023 12:26 EST History of thrombosis documented in this encounter Results * (ABNORMAL) BASIC METABOLIC PANEL (BMP) (10/09/2023 12:26 EST) [facility] Sodium 138 136 - 145 mmol/L 10/09/2023 13:14 [facility] Potassium 4.8 3.5 - 5.0 mmol/L 10/09/2023 13:14 [facility] Chloride 105 96 - 110 mmol/L 10/09/2023 13:14 [facility] CO2 Total 24 22 - 32 mmol/L 10/09/2023 13:14 [facility] Anion Gap 9 5 - 14 mmol/L 10/09/2023 13:14 [facility] Glucose 106(H) 70 - 99 mg/dl 10/09/2023 13:14 [facility] Calcium 9.7 8.5 - 10.5 mg/dL 10/09/2023 13:14 [facility] BUN 13 10 - 26 mg/dL 10/09/2023 13:14 [facility] Creatinine 0.97 0.52 - 1.04 mg/dL 10/09/2023 13:14 [facility] eGFR 69 >60 mL/min/1.73 m2 10/09/2023 13:14 [facility] Blood VENOUS BLOOD / Unknown Venipuncture / Unknown 10/09/2023 12:26 EST 10/09/2023 12:32 EST Evin Maria MD CHEMISTRY & BLOOD GAS ORDERABLES Final Result Performing Organization Address City/State/[facility] Co de Phone Number [facility] [address] [place] [address] * (ABNORMAL) COMPLETE BLOOD COUNT AND DIFFERENTIAL (10/09/2023 12:26 EST) WBC 6.50 4.00 - 12.40 K/cmm 10/09/2023 12:40 [facility] RBC 5.04 3.86 - 5.04 M/cmm 10/09/2023 12:40 [facility] Hemoglobin 14.6 11.6 - 15.2 g/dL 10/09/2023 12:40 [facility] HCT 45.3(H) 34.9 - 44.4 % 10/09/2023 12:40 [facility] MCV 90 81 - 98 fL 10/09/2023 12:40 [facility] MCH 29.0 26.7 - 33.3 pg 10/09/2023 12:40 [facility] MCHC 32.2 32.1 - 35.9 g/dL 10/09/2023 12:40 [facility] RDW-CV 16.5(H) <14.7 % 10/09/2023 12:40 [facility] RDW-SD 53.6(H) <50.4 fl 10/09/2023 12:40 [facility] PLT 189 141 - 377 K/cmm 10/09/2023 12:40 [facility] MPV 11.3 9.5 - 12.7 fL 10/09/2023 12:40 [facility] % Neutrophils 62.0 % 10/09/2023 12:40 [facility] % Lymphocytes 30.2 % 10/09/2023 12:40 [facility] % Monocytes 4.8 % 10/09/2023 12:40 [facility] % Eosinophils 2.5 % 10/09/2023 12:40 [facility] % Basophils 0.3 % 10/09/2023 12:40 [facility] % Immature Grans 0.2 % 10/09/20 12:40 [facility] Absolute Neutrophils 4.04 2.20 - 8.85 K/cmm 10/09/2023 12:40 [facility] Absolute Lymphocytes 1.96 1.09 - 3.30 K/cmm 10/09/2023 12:40 [facility] Absolute Monocytes 0.31 0.10 - 0.80 K/cmm 10/09/2023 12:40 [facility] Absolute Eosinophils 0.16 0.03 - 0.61 K/cmm 10/09/2023 12:40 [facility] ABS Basophils 0.02 0.01 - 0.11 K/cmm 10/09/2023 12:40 [facility] Absolute Immature Grans 0.01 0.00 - 0.06 K/cmm 10/09/2023 12:40 EST [facility] Type of Differential: Auto 10/09/2023 12:40 EST [facility] Blood VENOUS BLOOD / Unknown Venipuncture / Unknown 10/09/2023 12:26 EST 10/09/2023 12:31 EST Evin Maria MD PACKAGES & DNA PROBE ORDERABLES Final Result [facility] [address] [place] [address] documented in this encounter Visit Diagnoses Diagnosis History of thrombosis Personal history of venous thrombosis and embolism documented in this encounter Care Teams Material Control Clerk Relationship Specialty Start Date End Date Romario Hairston MD [address], [address] [place] [id number] PCP - General 07/06/20 documented as of this encounter
--- OUTSIDE RECORDS SUMMARY | 2024-12-03 15:52 | XMS_ITS | Encounter Summary ---
Author Organization [facility] Address [address] [place] [address] Care Team Providers Care Retail Cosmetics Sales Beauty Advisor Name Role Phone Romario Hairston MD Primary Care Provider +1- [phone] Reason for Visit * Auth/Cert (Routine) Specialty Diagnoses / Procedures [facility] Referred To Contact Diagnoses Weakness Failure to thrive in adult Acute left ankle pain Closed avulsion fracture of medial malleolus of left tibia, initial encounter Sprain of left ankle, unspecified ligament, initial encounter Hypomagnesemia Acute left ankle pain [M25.572] Referral ID Status Reason Start Date Expiration Date Visits Re quested Visits Authorized [id number] 1 1 Encounter Details Date Type Department Care Team (Late st Contact Info) Description 02/18/2024 9:19 EDT Anesthesia Event [facility] PACU [address] [place] [address] Zhang Christian MD [address] [place] [phone] Anesthesia Record Procedure Summary Procedure Name Responsible Anesthesiologist Anesthesia Start Time Anesthesia Stop Time ANESTHESIA LUMBAR PUNCTURE REQUEST Events No events on file. Meds * Agents No agents on file. * Blood No blood administrations on file. Lines, Drains, and Airways Type Details Placement Removal Urethral Catheter 02/11/24; 1230; Documenting on behalf of someone else (enter name) (SUPPLY CHAIN MANAGER student); Double-lumen; 16 fr; 10 ml; Yes 02/11/24 1230 by Tiffany Chirinos Foam Border Prophylactic Dressing 02/18/24; 0700; Mid; Sacrum; Teja less than or equal to 16 02/18/24 0700 by Omaira Tao RN Wound 02/21/24; 1233; Blis ter; Lower, Posterior, Right, Inferior; Ankle; Open blister back of ankle 02/21/24 1233 by Tayler Rutherford Wound 02/21/24; 1236; Blis ter; Left, Posterior; Ankle; Open blister back of ankle 02/21/24 1236 by Tayler Rutherford documented in this encounter Social History Tobacco Use Types Packs/Day Years [...] Sallie Sewell LPN documented in this encounter OR Notes * Anesthesia Procedure Notes - Zhang Christian MD - 02/18/2024 1101 EDTAssociated Order(s): Diagnostic Lumbar Puncture Diagnostic Lumbar Puncture Start time: 02/18/2024 10:30 End time: 02/18/2024 11:01 Staffing Performed: anesthesiologist Anesthesiologist: Zhang Christian MD Performed by: Zhang Christian MD Authorized by: Zhang Christian MD Reason for Lumbar Puncture: specimen collection Preanesthetic Checklist Completed: patient identified, risks and benefits discussed, surgical consent, monitors and equipment checked and timeout performed Lumbar Puncture Patient position: left lateral decubitus Prep: Betadine, site prepped and draped, skin prep agent completely dried prior to procedure, sterile gloves, mask used and subcutaneous lidocaine Patient monitoring: continuous pulse ox, campus monitor, heart rate and BP cuff Patient sedation: no sedation Approach: left paramedian Location: L4-5 Injection technique: single-shot Number of attempts: 1 Fluid appearance: clear Total volume: 10 ml Needle Needle type: Shira Needle gauge: 22 G Needle length: 3.5 in Assessment Events: cerebrospinal fluidPost-procedure: adhesive bandage applied Additional Notes Indication:weakness Mls CSF:10 Tube One: 4 ml Tube Two: 1 ml Tube Three: 2 ml Tube Four: 3 ml documented in this encounter Plan of Treatment Upcoming Encounters Date Type Department Care Team (Late st Contact Info) Description 03/04/2025 14:00 EDT Telemedicine [facility] Neurology Clinic [address] [place] [address] Brayan Polk MD 130 [facility] [address] [place] [address] 07/14/2025 14:30 EDT Office Visit [facility] Cancer Center Hematology & Oncology - [address] [phone] Evin Maria MD [address] [place] [address], [facility], Level 2 [place] [address] documented as of this encounter Procedures Procedure Name Priority Date/Time Associated Diagnosis Comments DIAGNOSTIC LUMBAR PUNCTURE Routine 02/18/2024 11:01 EDT DIAGNOSTIC LUMBAR PUNCTURE Routine 02/18/2024 11:01 EDT documented in this encounter Results * HC - DIAGNOSTIC LUMBAR SPINAL PUNCTURE, [place] ANESTHESIA NON-TIMED PLACEHOLDER (02/18/2024 11:01 EDT) Narrative [facility] POINT OF CARE - 02/18/2024 11:01 EDT Zhang Christian MD ? 02/18/2024 11:03 Diagnostic Lumbar Puncture Start time: 02/18/2024 10:30 End time: 02/18/2024 11:01 Staffing Performed: anesthesiologist Anesthesiologist: Zhang Christian MD Performed by: Zhang Christian MD Authorized by: Zhang Christian MD ?? Reason for Lumbar Puncture: specimen collection Preanesthetic Checklist Completed: patient identified, risks and benefits discussed, surgical consent, monitors and equipment checked and timeout performed Lumbar Puncture Patient position: left lateral decubitus Prep: Betadine, site prepped and draped, skin prep agent completely dried prior to procedure, sterile gloves, mask used and subcutaneous lidocaine Patient monitoring: continuous pulse ox, campus monitor, heart rate and BP cuff Patient sedation: no sedation Approach: left paramedian Location: L4-5 Injection technique: single-shot Number of attempts: 1 Fluid appearance: clear Total volume: 10 ml Needle Needle type: Shira Needle gauge: 22 G Needle length: 3.5 in Assessment Events: cerebrospinal fluidPost-procedure: adhesive bandage applied Additional Notes Indication:weakness Mls CSF:10 Tube One: ?4 ml Tube Two: ?1 ml Tube Three: 2 ml Tube Four: ?? 3 ml Zhang Christian MD ANESTHESIA ORDERABL ES Edited Result - Final [facility] POINT OF CARE documented in this encounter Visit Diagnoses Not on filedocumented in this encounter Care Teams Retail Cosmetics Sales Beauty Advisor Relationship Specialty Start Date End Date Romario Hairston MD [address] [place] [address] PCP - General 07/06/20 documented as of this encounter
--- OUTSIDE RECORDS SUMMARY | 2024-12-03 15:52 | XMS_ITS | Encounter Summary ---
Author Organization [facility] Address [address] [place] [address] Care Team Providers Care Laborer Turkey Farm Name Role Phone Romario Hairston MD Primary Care Provider +1- [phone] Encounter Details Date Type Department Care Team (Late st Contact Info) Description 10/24/2023 Documentation Visit [facility] Rehabilitation Therapy [address] [place] [address] Estela Wolf, PT [address] [place] [address] Social History Tobacco Use Types Packs/Day Years [...] documented in this encounter Progress Notes * Estela Wolf, PT - 10/24/2023 1308 EST [facility] Outpatient Rehabilitation Services [phone] Physical Therapy Discharge Not Seen Recently Therapy Diagnosis: Unsteadiness on feet, latoya LE weakness and 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 Referring Clinician: Dr Polk Reporting Period: 02/15/22 Eval only Physical Therapy Program to Date: In summary, the program has included: PT evaluation only Goal Review: Short-Term Goals Timeframe: 6 weeks (03/30/22) Goals: 1 Pt will be able to rise from chair without UE support and stand 10sec without LOB in order to improve stability with transfers. 2 Pt will score 12sec or less on TUG in order to demonstrate low risk for falls with home ambulation. ?? Long-Term Goals Timeframe: 12 weeks (05/02/22) Goals: 1 Pt will be able to walk at least 0.8m/s for self selected speed and 1.25m/s for fast speed in order to cross the street safely. 2 Pt will be able to walk on even and uneven surfaces including curb step with LRD at least 20 min to run errands in town with partner. 3 Pt will be able to climb stairs with reciprocal pattern in home with 1 HR safely to get to bedroom. Discharge Reason: Pt was not well after evaluation. Did eventually follow up with PT, however did not complete the episode of care associated with this evaluation date. Discharge patient at this time; future therapy will require a new physician's referral. documented in this encounter Plan of Treatment Upcoming Encounters Date Type Department Care Team (Late st Contact Info) Description 03/04/2025 14:00 EDT Telemedicine [facility] Neurology Clinic [address] [place] [address] [id number] Brayan Polk MD 130 [facility] [address] [place] [phone] 07/14/2025 14:30 EDT Office Visit [facility] Cancer Center Hematology & Oncology - [address] [phone] Evin Maria MD 111 [facility], [facility], Level [address] [place] [phone] documented as of this encounter Visit Diagnoses Not on filedocumented in this encounter Care Teams Laborer Turkey Farm Relationship Specialty Start Date End Date Romario Hairston MD [address], [address] [place] [phone] PCP - General 07/06/20 documented as of this encounter
--- OUTSIDE RECORDS SUMMARY | 2024-12-03 15:53 | XMS_ITS | Encounter Summary ---
Author Organization [facility] Address [address] [place] [address] Care Team Providers Care Detective Investigator Name Role Phone Romario Hairston MD Primary Care Provider +1- [phone] Reason for Visit * Reason Onset Date Comments Appointment Related 08/28/2023 Encounter Details Date Type Department Care Team (Late st Contact Info) Description 08/28/2023 Telephone [facility] Cancer Center Hematology & Oncology - [address] [address] Evin Maria MD [address] [place] [address], [address] [place] [address] Appointment Related Social History Tobacco [...] Telephone Encounter - Socorro Haile - 08/28/2023 1136 EDT Pt's sister returned my phone call. Preferred in person appt over a zoom and she said she is available to bring Ynes in on 09/11 since Crow had a cancellation. Let them know where are clinic was in the hospital * Telephone Encounter - Chilo Jay - 08/28/2023 1109 EDT Lucille(sister) is calling to schedule appointment for the patient. documented in this encounter Plan of Treatment Upcoming Encounters Date Type Department Care Team (Late st Contact Info) Description 03/04/2025 14:00 EDT Telemedicine [facility] Neurology Clinic [address] [place] [address] Brayan Polk MD 130 [facility] [address] [place] [address] 07/14/2025 14:30 EDT Office Visit [facility] Cancer Center Hematology & Oncology - [facility] [address] [place], [place] [phone] Evin Maria MD 111 [facility], [address] [place] [phone] documented as of this encounter Visit Diagnoses Not on filedocumented in this encounter Care Teams Detective Investigator Relationship Specialty Start Date End Date Romario Hairston MD [address], [address] [phone] PCP - General 07/06/20 documented as of this encounter
--- OUTSIDE RECORDS SUMMARY | 2024-12-03 15:53 | XMS_ITS | Encounter Summary ---
Author Organization [facility] Address [address] [place] [address] Care Team Providers Care Executive Coordinator Name Role Phone Romario Hairston MD Primary Care Provider +1- [phone] Reason for Visit * Reason Onset Date Comments Medications Refill 06/25/2023 Encounter Details Date Type Department Care Team (Late st Contact Info) Description 06/25/2023 Refill [facility] Neurology Clinic [address] [place], [place] [phone] Vashti Grover RN Medications Refill Social History [...] 2 times daily. Daily Max: 200 mg 60 Capsule 3 06/25/2023 documented in this encounter Miscellaneous Notes * Telephone Encounter - Vashti Grover RN - 06/25/2023 1609 EDT Refill request for pregabalin 100 mg bid. Called into pharmacy per ASSISTANT PARALEGAL note on 06/20/2023. documented in this encounter Plan of Treatment Upcoming Encounters Date Type Department Care Team (Late st Contact Info) Description 03/04/2025 14:00 EDT Telemedicine [facility] Neurology Clinic [address] [place] [address] Brayan Polk MD 130 [facility] [address] [place] [address] 07/14/2025 14:30 EDT Office Visit [facility] Cancer Center Hematology & Oncology - [address] [address] Evin Maria MD [address] [place] [address], [facility], Level [address] [place] [address] documented as of this encounter Visit Diagnoses Not on filedocumented in this encounter Discontinued Medications Medication Sig Discontinue Reason Start Date End Da te pregabalin (LYRICA) 50 mg capsule Take 1 Capsule by mouth 2 times daily. Take one (50 mg) capsule with one (100 mg) capsule for a total dose of 150 mg 2 times daily. Max daily dose in 300 mg. Daily Max: 100 mg 01/21/2023 06/25/2023 pregabalin (LYRICA) 100 mg capsule Take 1 Capsule by mouth 2 times daily. Daily Max: 200 mg 05/21/2023 06/25/2023 documented as of this encounter Care Teams Executive Coordinator Relationship Specialty Start Date End Date Romario Hairston MD [address], [address] [place] [address] PCP - General 07/06/20 documented as of this encounter
--- OUTSIDE RECORDS SUMMARY | 2024-12-03 15:53 | XMS_ITS | Encounter Summary ---
Author Organization [facility] Address [address] [place] [address] Care Team Providers Care Disability Case Manager Name Role Phone Romario Hairston MD Primary Care Provider +1- [phone] Reason for Visit * Reason Comments Medications Refill Encounter Details Date Type Department Care Team (Late st Contact Info) Description 05/29/2023 Refill [facility] Neurology Clinic [address] [place] [address] Brayan Polk MD [address] [place] [address]-[address] [place] [address] Medications Refill Social History Tobacco [...] End Date methocarbamoL (ROBAXIN) 500 mg tablet TAKE 1 TABLET BY MOUTH TWICE DAILY 60 Tablet 2 05/29/2023 11/07/2023 documented in this encounter Plan of Treatment Upcoming Encounters Date Type Department Care Team (Late st Contact Info) Description 03/04/2025 14:00 EDT Telemedicine [facility] Neurology Clinic [address] [place] [phone] Brayan Polk MD 130 [facility] [address] [place] [phone] 07/14/2025 14:30 EDT Office Visit [facility] Cancer Center Hematology & Oncology - [address] [address] Evin Maria MD [address] [place] [address] [address] [place] [address] documented as of this encounter Visit Diagnoses Not on filedocumented in this encounter Discontinued Medications Medication Sig Discontinue Reason Start Date End Da te methocarbamoL (ROBAXIN) 500 mg tablet Take 1 Tablet by mouth 2 times daily. 02/26/2023 05/29/2023 documented as of this encounter Additional Health Concerns Infection Onset Date Last Indicated Resolved Time R/O COVID-19 01/28/2024 01/28/2024 01/29/2024 0:27 EST documented as of this encounter Care Teams Disability Case Manager Relationship Specialty Start Date End Date Romario Hairston MD [address] [place] [address] PCP - General 07/06/20 documented as of this encounter
--- OUTSIDE RECORDS SUMMARY | 2024-12-03 15:53 | XMS_ITS | Encounter Summary ---
Author Organization [facility] Address [address] [place] [address] Care Team Providers Care Silica Dry Press Helper Name Role Phone Romario Hairston MD Primary Care Provider +1- [phone] Reason for Visit * Reason Onset Date Comments Medications Refill 01/29/2023 Encounter Details Date Type Department Care Team (Late st Contact Info) Description 01/29/2023 Telephone [facility] Neurology Clinic [address] [place] [address] Vashti Grover RN Medications Refill [...] Daily Max: 200 mg 60 Capsule 3 01/29/2023 3 documented in this encounter Miscellaneous Notes * Telephone Encounter - Vashti Grover RN - 01/29/2023 1511 EST Ever called requesting a refill of the 100 mg pregabalin caps. Called prescription in to the pharmacy. documented in this encounter Plan of Treatment Upcoming Encounters Date Type Department Care Team (Late st Contact Info) Description 03/04/2025 14:00 EDT Telemedicine [facility] Neurology Clinic [address] [place] [address] Brayan Polk MD [address] [facility] [address] [place] [address] 07/14/2025 14:30 EDT Office [facility] Cancer [facility] Hematology & Oncology - [address] [address] Evin Maria MD [address] [place] [address], [facility], Level [address] [place] [address] documented as of this encounter Visit Diagnoses Not on filedocumented in this encounter Discontinued Medications Medication Sig Discontinue Reason Start Date End Da te pregabalin (LYRICA) 100 mg capsule Take 1 capsule by mouth 2 times daily. Daily Max: 200 mg Reorder 07/31/2022 01/29/2023 documented as of this encounter Care Teams Silica Dry Press Helper Relationship Specialty Start Date End Date Romario Hairston MD [address] [place] [address] PCP - General 07/06/20 documented as of this encounter
--- OUTSIDE RECORDS SUMMARY | 2024-12-03 15:53 | XMS_ITS | Encounter Summary ---
Author Organization [facility] Address [address] [place] [address] Care Team Providers Care Deep Submergence Vehicle Operator Name Role Phone Romario Hairston MD Primary Care Provider +1- [phone] Encounter Details Date Type Department Care Team (Latest Contact Info) Description 06/06/2023 Plan of Care Documentation [facility] Rehabilitation Therapy [address] [place] [address] Social History Tobacco Use Types Packs/Day Years [...] documented in this encounter Progress Notes * Sandra [place], PT - 06/06/2023 1612 EDT Outpatient Rehab Plan of Care Assessment Therapy Diagnosis: Chronic stroke with gait, strength, balance, and endurance deficits. Assessment: Ynes returns to physical therapy today, it has been about 4 weeks since her last session. She is ambulating with her rollator walker today, reports she was having a lot of increased LEpain after walking without her walker. She is able to perform a TUG today with rollator which is a significant improvement in her mobility, though she does still pose a falls risk based on 22 secondsto complete the test. She is making overall progress towards her functional goals and she would benefit from continued therapy for 1-2 more sessions, per prior plan of care, to continue with balance,strength, mobility, and to develop a home exercise program. Response to Visit: Appears to understand information presented. Understands home exercise program modifications. Goal Review: Short-Term Goals Timeframe: 4 weeks (01/24/23) Patient will demonstrate independent understanding of their HEP using a written handout in order tosafely and correctly complete recommended exercises in their home: Goal discontinued - pt has been instructed in a home program, has been provided with printed handouts Patient will demonstrate improved standing tolerance with support from the two wheeled walker to complete ADLs such as dishwashing and/or self-care for 5 minutes without pain or dizziness: ongoing Patient will demonstrate the ability to complete a stand-step transfer with use of the two wheeled walker to safely transfer from WC <> chair or WC <> bed without assist: goal discontinued, previously met Long-Term Goals Timeframe: 6 more weeks (04/30/23) 1. Patient will no longer need to utilize the wheelchair for household mobility and progress to useof the two wheeled walker for all indoor ambulation: goal discontinued today 2. Patient will demonstrate improved activity tolerance by completion of a six minute walk test with the least restrictive device to improve her ability to access community distances such as medical appointments without the need for a wheelchair: Ongoing 3. Patient will demonstrate standing posture with both heels on the ground demonstrating reduce plantarflexor tightness/ contracture and improving standing balance for reduced fall risk: Ongoing - goal almost met 4. Patient will perform at least 6 repetitions of sit to/from plumbing assembler 30 seconds to demonstrate improvements in LE strength/endurance, to improve transfers at home: Not tested today 5. Patient will report utilization of rolling walker for indoor mobility at least 50% of the time: Goal met, pt reports she has not been requiring a wheelchair and has been using her rollator Barriers to Learning: Memory Potential Barriers to Progress: Medical condition Rehabilitation Potential: Motivation/Commitment to Therapy: Good Rehabilitation Potential: Good Plan Medical Necessity: Therapy intervention is indicated in order to return to a premorbid level of function or significantly improve current level of function. Physical Therapy is recommended for: Treatment Frequency/ Duration: 1x week for up to 2 more sessions (per prior progress note 03/19/23) Therapy Treatment to include: [address] - Therapeutic Exercise, [address]195 - Neuromuscular Re-education, 11263 - Gait Training, 31512 - Manual Therapy and [address]9906 - Therapeutic Activity Recommended Consults: None currently Development of Plan of Care: Patient and family participated in development of plan of care today. Plan for next visit: re-assess symptoms, gait, balance, functional strength and mobility The patient has been instructed to contact our clinic if any questions or problems should arise ATTENDING PHYSICIAN: Medicare certification needed. Your signature indicates you approve the therapy goals and plan of care outlined on this document dated 06/06/2023. Thank you! Attending Physician Signature Date Sandra [place], PT 06/06/2023 16:08 documented in this encounter Plan of Treatment Upcoming Encounters Date Type Department Care Team (Late st Contact Info) Description 03/04/2025 14:00 EDT Telemedicine [facility] Neurology Clinic [address] [place] [address] Brayan Polk MD 130 [facility] [address] [place] [phone] 07/14/2025 14:30 EDT Office Visit [facility] Cancer Center Hematology & Oncology - [address] [phone] Evin Maria MD [address] [place] [address], [facility], [address] [place] [address] documented as of this encounter Visit Diagnoses Not on filedocumented in this encounter Care Teams Deep Submergence Vehicle Operator Relationship Specialty Start Date End Date Romario Hairston MD [address], [address] [id number] PCP - General 07/06/20 documented as of this encounter
--- OUTSIDE RECORDS SUMMARY | 2024-12-03 15:53 | XMS_ITS | Encounter Summary ---
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 Assessment: Pt continues to present with moderate Wernicke's aphasia secondary to left intracerebral hemorrhage sustained on 03/02/20. She benefits greatly from implementation of total-communication strategies, including spelling, gesture, and circumlocution. Pt benefited from continuing sentence completion activity despite struggling at first. It appeared her brain needed time to warm-up. Pt benefited from clinician cueing to prompt use of circumlocution strategy (e.g., clinician referenced visual prompt of word-finding strategies and asked prompting questions like where do you find it?). Pt will continue to benefit from ASSOCIATE SOFTWARE ENGINEER intervention to support expressive language through total commun ication. Goal Update: Short-Term Goals Timeframe: 12/31/22 Goals: 1. The pt will overcome word-finding difficulties by applying word retrieval strategies (e.g. circumlocution, gesture, writing, etc) in at least 80% (16/20) of anomic instances with minimal clinician-delivered cues. Progressing: Pt implements word-finding strategies independently in [id number]% of anomic instances. Continue with goal for increased independence. 2. Pt will follow simple 2-step written directions with at least 90% accuracy given minimal clinician delivered prompting. Progressing: Pt completing 2 step written directions with ~10% accuracy without prompting. When instructions are read to her, she completes with ~60% accuracy. 3. Pt will follow simple 2-step verbal directions with at least 90% accuracy given minimal clinician delivered prompting. Progressing: Pt completes 2-step directions with approximately 60% accuracygiven clinician prompting. ?? Long-Term Goals Timeframe: 01/28/23 Goals: 1. Pt will improve confrontation naming skill from 1/15 (6%) at baseline to at least 6/15 (40%) using word-retrieval strategies as needed, independently. Progressing. Continue with goal. 2. Pt will improve auditory comprehension from 5th Percentile on basic word discrimination of the [place] Diagnostic Aphasia Examination to at least 50th percentile on this same task. *Progressing, continue with goal. PLAN Medical Necessity: Therapy intervention is indicated in order to return to a premorbid level of function or significantly improve current level of function. Speech Therapy is recommended for: Treatment Frequency/ Duration: 1x every other week for 12 weeks Therapy Treatment to include: [address]171 - Treat speech, language, voice, communication, and/or auditoryprocessing disorder Recommended Consults: None currently Development of Plan of Care: Patient participated in development of plan of care today. ATTENDING PHYSICIAN: Medicare certification needed. Your signature indicates you approve the therapy goals and plan of care outlined on this document dated 10/30/2022. Thank you! Attending Physician Signature Date ERIKA NORMAN 11/01/2022 10:11 documented in this encounter Plan of Treatment Upcoming Encounters Date Type Department Care Team (Late st Contact Info) Description 03/04/2025 14:[address] [facility] [address] [place] [address] Brayan Polk MD 130 [facility] [address] [place] [address] 07/14/2025 14:30 EDT Office Visit [facility] Cancer Center Hematology & Oncology - [facility] [address] [place], [place] [id number] Evin Maria MD 111 [facility], [facility], [address] [place] [phone] documented as of this encounter Visit Diagnoses Not on filedocumented in this encounter Care Teams Marquetry Worker Relationship Specialty Start Date End Date Romario Hairston MD [address], [address] [id number] PCP - General 07/06/20 documented as of this encounter
--- OUTSIDE RECORDS SUMMARY | 2024-12-03 15:53 | XMS_ITS | Encounter Summary ---
Author Organization [facility] Address [address] [place] [address] Care Team Providers Care Paleontological Helper Name Role Phone Romario Hairston MD Primary Care Provider +1- [phone] Reason for Visit * Reason Comments Urine Change Patient reports five days of foul smelling urine Encounter Details Date Type Department Care Team (Late st Contact Info) Description 12/25/2022 13:45 EST Walk-In [facility] [address] [place] [address] Torres Escobedo, JESSICA [address] [facility] [address] [place] [address] Foul smelling urine (Primary Dx); Pain in both lower extremities Social History Tobacco Use Types Packs/Day Years [...] Sign Reading Time Taken Comments Blood Pressure 100/68 12/25/2022 1422 EST Pulse 85 12/25/2022 1422 EST Temperature 36.7 ??C (98 ??F) 12/25/2022 1422 EST Respiratory Rate 20 12/25/2022 1422 EST Oxygen Saturation 97% 12/25/2022 1422 EST Inhaled Oxygen Concentration - - Weight [...] Jostin Henry RN documented in this encounter Patient Instructions * Patient Instructions* Torres Escobedo NP - 12/25/2022 13:45 EST Your test results today appear normal. However, I am sending this out for culture confirmation. If the culture comes back with growth of bacteria requiring treatment, I will call and we will discuss this. Continue supportive measures and monitoring. Good hydration, voiding the bladder often. Other supportive care for pain in her legs can include Tylenol, position changes. documented in this encounter Progress Notes * Arun Orozco RN - 12/25/2022 1345 EST CC/HPI: Patient reports five days of foul smelling urine Covid Screening: In the last 72 hours, has the patient had: New or unusual cough, shortness of breath, new nasal congestion, sore throat, fever, chills, body aches, or new loss of taste or smell: No In the past 10 days, has the patient had a positive Covid test OR a confirmed close Covid exposure (<6ft for > 15mins in 24hr period)? (if yes, assign to [facility], regardless of vaccination status)-No PCP: Romario OROZCO RN 12/25/2022 13:42 * Torres Escobedo NP - 12/25/2022 1345 EST [facility] Chief Complaint(s): Urine Change (Patient reports five days of foul smelling urine) Assessment & Plan: 1. Foul smelling urine Ynes is a pleasant 52-year-old female presenting with concern for urine odor change. I did not appreciate a foul odor to her urine. Her UA here is normal. Sent for culture confirmation to exclude infectious process. Will follow up if positive. Encouraged to continue supportive measures including increased clear fluids, voiding often. Patient and caregiver verbalize understanding. - POCT URINE DIPSTICK, VISUAL READ - BACTERIAL CULTURE, URINE 2. Pain in both lower extremities Discussed safe dosing regimen for tylenol. An appropriate medical screening examination was performed. The patient was assessed prior to discharge and deemed stable for discharge home. HPI: Ynes presents to [facility] with caregiver, Ever, for evaluation of foul- smelling urine. Patient has a PMH of neurogenic bladder secondary to CVA -- she is largely wheelchair-bound for ambulation. They note approximately 5 days of a change in her urine smell -- more potent, sort of foul. No cloudiness or dysuria. No change in frequency. No change in bowel pattern. Denies change in diet or medications. She does endorse that she has been applying a vaginal cream but denies rash or vaginal discomfort. Ynes and Ever deny that she is sexually active or concerns for STIs. No abdominal pain. No fever, nausea, vomiting. PO normal. History of cystitis in the fall 2021. Ever also asks how much Tylenol she can be taking for her leg pain -- has radiculopathy he reports. I have reviewed current problem list and current medications. ROS: See HPI for details ROS Examination: Vitals: BP 100/68 Pulse 85 Temp 36.7 ??C (98 ??F) (Oral) Resp 20 SpO2 97% Physical Exam Vitals and nursing note reviewed. Constitutional: General: She is not in acute distress. Appearance: She is not ill-appearing. Comments: Sitting in WC. Readily responds to questions Pulmonary: Effort: Pulmonary effort is normal. Abdominal: General: There is no distension. Tenderness: There is no abdominal tenderness. There is no right CVA tenderness or left CVA tenderness. Skin: General: Skin is warm and dry. Neurological: Mental Status: She is alert. Results for orders placed or performed in visit on 12/25/22 POCT URINE DIPSTICK, VISUAL READ Result Value Ref Range Color, UA Yellow Clarity, UA Clear Glucose, UA Negative . mg/dL Bilirubin, UA Negative Negative Ketones, UA Negative . mg/dL Spec Grav, UA 1.010 1.005 - 1.030 Blood, UA Negative Negative pH, UA 7.0 4.6 - 8.0 Protein, UA Negative . mg/dL Urobilinogen, UA 0.2 0.2 - 1.0 E.U./dL Nitrite, UA Negative . Leuk Esterase Negative Negative Comment Data reviewed (past results):Reviewed and/or ordered active problem list, medication list, allergies, lab results This note may be in part documented using Euclid dictation software. Please forgive any errors, omissions or typos that may result from use of dictation. Patient/guardian verbally consented to the use of any clinical photography obtained in the visit today for the purposes of diagnosis, treatment or identification of the patient. documented in this encounter Plan of Treatment Upcoming Encounters Date Type Department Care Team (Late st Contact Info) Description 03/04/2025 14:00 EDT Telemedicine [facility] [address] [place] [address] Brayan Polk MD [address] [place], [place] [address] [address] [place] [phone] 07/14/2025 14:30 EDT Office Visit [facility] Cancer Center Hematology & Oncology - [facility] [address] [place], [place] [address] Evin Maria MD 111 [facility], [facility], [address] [place] [address] documented as of this encounter Procedures Procedure Name Priority Date/Time Associated Diagnosis Comments BACTERIAL CULTURE, URINE Routine 12/25/2022 14:57 EST Foul smelling urine POCT URINE DIPSTICK, VISUAL READ Routine 12/25/2022 14:32 EST Foul smelling urine documented in this encounter Results * BACTERIAL CULTURE, URINE (12/25/2022 14:57 EST) Organism ID [id number] to 100,000 CFU/ml VITEK SUSCEPTIBILITY 12/27/2022 11:52 EST [facility] Comment: Usual urogenital karla. Urine URINE SPECIMEN COLLECTION, CLEAN CATCH / Unknown Urine Collect / Unknown 12/25/2022 14:57 EST 12/25/2022 14:57 EST us Torres Escobedo NP MICROBIOLOGY - GENERAL JELANI CROSS Final Result [facility] [address] [place] [address] * POCT URINE DIPSTICK, VISUAL READ (12/25/2022 14:32 EST) Color, UA Yellow [facility] POIN T OF CARE Clarity, UA Clear [facility] PO INT OF CARE Glucose, UA Negative . mg/dL [facility] PO INT OF CARE Bilirubin, UA Negative Negative [facility] POINT OF CARE Ketones, UA Negative . mg/dL [facility] PO INT OF CARE Spec Grav, UA 1.010 1.005 - 1.030 [facility] POINT OF CARE Blood, UA Negative Negative [facility] POIN T [facility] C[facility] pH, UA 7.0 4.6 - 8.0 [facility] POIN T OF CARE Protein, UA Negative . mg/dL [facility] PO INT OF CARE Urobilinogen, UA 0.2 0.2 - 1.0 E.U./dL [facility] POINT OF CARE Nitrite, UA Negative . [facility] PO INT OF CARE Leuk Esterase Negative Negative [facility] POINT OF CARE Comment [facility] POIN T OF CARE Urine URINE SPECIMEN COLLECTION, CLEAN CATCH / Unknown 12/25/2022 14:32 EST us Torres Escobedo NP POINT OF CARE TEST ORDERABL ES Final Result [facility] documented in this encounter Visit Diagnoses Diagnosis Foul smelling urine- Primary Other nonspecific finding on examination of urine Pain in both lower extremities documented in this encounter Historical Medications * This list may reflect changes made after this encounter. clotrimazole (LOTRIMIN) 1 % cream APPLY TOPICALLY TO THE AFFECTED AREA TWICE DAILY FOR 28 DAYS 10/30/2022 4 OLANZapine (ZYPREXA) 20 mg tablet Take 1 Tablet by mouth at bedtime. 12/05/2022 4 added in this encounter Care Teams Paleontological Helper Relationship Specialty Start Date End Date Romario Hairston MD [address], [address] [place] [address] PCP - General 07/06/20 documented as of this encounter
--- OUTSIDE RECORDS SUMMARY | 2024-12-03 15:53 | XMS_ITS | Encounter Summary ---
Author Organization [facility] Address [address] [place] [address] Care Team Providers Care Dsp Engineer Name Role Phone Romario Hairston MD Primary Care Provider +1- [phone] Encounter Details Date Type Department Care Team (Late st Contact Info) Description 08/12/2023 Documentation Visit [facility] Rehabilitation Therapy [address] [place] [address] Sharmila Aden, OT [address] [place] [phone] Social History Tobacco Use Types Packs/Day Years [...] documented in this encounter Progress Notes * Sharmila Aden, OT - 08/12/2023 0745 EDT [facility] Out[facility] Rehabilitation Services [phone] Occupational Therapy Discharge Not Seen Recently Therapy Diagnosis: decreased strength, vision, sensation in BUEs, decreased FMC, GMC, decreased memory, attention, cognition, decreased ADLs, IADLs due to evacuation of cerebral venous thrombosis Reporting Period: 04/26/2023-08/12/2023 Occupational Therapy Program to Date: In summary, the program has included: therapeutic activity, self care, therex, NMR Progress Towards Goals: Goal Review: Short-Term Goals Timeframe:??4 visits Goals:?? 1) Pt will initiate HEP.- MET 2) Pt will be able to fasten buttons with Mod I utilizing adaptive strategies as needed.??- MET ?Long-Term Goals Timeframe:??10 visits Goals:?? 1) Pt will be able to write with Min A utilizing adaptive strategies as needed.- progressing 2) Pt will demonstrate improved FMC as evidenced by improved 9 hole peg test of at least 7 seconds in order to perform feeding with increased independence- MET 3) Pt will be able to perform simple meal prep with Mod I in order to decrease caregiver burden.- progressing 4) Pt with be able to complete kitchen task of washing and putting away dishes with Mod I for adaptive equipment as needed. - ADDED ?? Discharge Reason: None known Discharge patient at this time; future therapy will require a new physician's referral. documented in this encounter Plan of Treatment Upcoming Encounters Date Type Department Care Team (Late st Contact Info) Description 03/04/2025 14:00 EDT Telemedicine [facility] [address] [place] [address] Brayan Polk MD 130 [facility] [address] [place] [phone] 07/14/2025 14:30 EDT Office Visit [facility] Cancer Center Hematology & Oncology - [address] [phone] Evin Maria MD 111 [facility], [facility], [address] [place] [address] documented as of this encounter Visit Diagnoses Not on filedocumented in this encounter Care Teams Dsp Engineer Relationship Specialty Start Date End Date Romario Hairston MD [address], [address] [address] PCP - General 07/06/20 documented as of this encounter
--- OUTSIDE RECORDS SUMMARY | 2024-12-03 15:53 | XMS_ITS | Encounter Summary ---
Author Organization [facility] Address [address] [place] [address] Care Team Providers Care Shoe Stainer Name Role Phone Romario Hairston MD Primary Care Provider +1- [phone] Encounter Details Date Type Department Care Team (Latest Contact Info) Description 11/30/2022 Plan of Care Documentation [facility] [address] [place] [address] Social History Tobacco Use Types Packs/Day Years [...] Progress Notes * Sharmila Aden, OT - 11/30/2022 1715 EST Outpatient Rehab Plan of Care Therapy Diagnosis: decreased strength, vision, sensation in BUEs, decreased FMC, GMC, decreased memory, attention, cognition, decreased ADLs, IADLs due to evacuation of cerebral venous thrombosis Problem List: Impaired ADLs, Impaired instrumental ADLs, Decreased strength, Limited activity tolerance, Decreased coordination, Impaired cognition, Limited attention and Limited concentration Assessment: Pt has actively participated in skilled treatment. Pt reports overall increased participation in daily tasks such as organizing house, eating consistent meals, making coffee. Pt has not been performing HEP, difficulty using menu planner provided by SENIOR FINANCIAL ACCOUNTANT due to difficulty writing. As noted in objective measures, pt demonstrated improvement in FMC as evidenced by 9 hole peg score, improved pinch strength and shoulder AROM since initial evaluation. Pt continues to have difficulty with meal prep/cooking, writing, home management tasks, and overall functional activity tolerance. Pt reports increased difficulty and frustration with understanding speech and increased depression. She will be f ollowing up with MD regarding these issues. Pt required verbal cues and increased time to perform writing activity. Instructed pt to practice writing words provided by SENIOR FINANCIAL ACCOUNTANT for menu planner. Pt achieved all stated STGs and 1 LTG. Pt is making progress in remaining LTGs. Pt would like to focus on writing,in particular, to write things down that she needs to remember, and preparing simple meals. Pt is recommended and agreeable to continue per POC. Goal Review: Short-Term Goals Timeframe: 4 visits Goals: 1) Pt will initiate HEP.- MET 2) Pt will be able to fasten buttons with Mod I utilizing adaptive strategies as needed. - MET ?? Long-Term Goals Timeframe: 10 visits Goals: 1) Pt will be able to write [...] in order to decrease caregiver burden.- progressing Equipment Needed: none Barriers to Learning: cognitive impairments, aphasia Potential Barriers to Progress: Limited caregiver availability, Medical condition and Poor activitytolerance Response to Visit: Appears to understand information presented. Rehabilitation Potential: Motivation/Commitment to Therapy: Good Rehabilitation Potential: Fair PLAN Medical Necessity: Therapy intervention is indicated in order to return to a premorbid level of function or significantly improve current level of function. Occupational Therapy is recommended for: Treatment Frequency/ Duration: 1x week for up to 12 weeks, receding as clinically indicated Therapy Treatment to include: [address] - Therapeutic Exercise, [address] - Neuromuscular Re-education, [address] - Therapeutic Activity and [address] - Self Care/Home Management Recommended Consults: none at this time Development of Plan of Care: Patient participated in development of plan of care today. Plan for next visit: meal prep/cooking, hand strengthening program, writing The patient has been instructed to contact our clinic if any questions or problems should arise Total treatment time: 60 minutes. Timed code treatment minutes: 60 minutes ATTENDING PHYSICIAN: Medicare certification needed. Your signature indicates you approve the therapy goals and plan of care outlined on this document dated 11/30/2022. Thank you! Attending Physician Signature Date Sharmila Aden OT 11/30/2022 17:14 documented in this encounter Plan of Treatment Upcoming Encounters Date Type Department Care Team (Late st Contact Info) Description 03/04/2025 14:00 EDT Telemedicine [facility] [address] [place], [place] [address] Brayan Polk MD 130 [facility] [address] [place] [address] 07/14/2025 14:30 EDT Office Visit [facility] Cancer Center Hematology & Oncology - [address] [address] Evin Maria MD 111 [facility], [address] [place] [address] documented as of this encounter Visit Diagnoses Not on filedocumented in this encounter Care Teams Shoe Stainer Relationship Specialty Start Date End Date Romario Hairston MD [address], [address] [place], [place] [phone] PCP - General 07/06/20 documented as of this encounter
--- OUTSIDE RECORDS SUMMARY | 2024-12-03 15:53 | XMS_ITS | Encounter Summary ---
Author Organization [facility] Address [address] [place] [address] Care Team Providers Care Massage Therapist Name Role Phone Romario Hairston MD Primary Care Provider +1- [phone] Reason for Visit * Reason Onset Date Comments Other 03/29/2023 Encounter Details Date Type Department Care Team (Late st Contact Info) Description 03/29/[address] [facility] [address] [place] [address] Brayan Polk MD 130 [facility] [address] [place] [address] Other Social History Tobacco Use [...] of Assessment Author No 03/07/2022 13:33 EDT Chaudhary, Jostin le, RN * Do you have serious difficulty walking or climbing stairs? (5 years old or older) Answer Date of Assessment Author Yes 03/07/2022 13:33 Jostin Henry RN * Do you have difficulty dressing or bathing? (5 years old or older) Answer Date of Assessment Author Yes 03/07/2022 13:33 J CARLOST Jostin Chaudhary RN * Because of a [...] Telephone Encounter - Vashti Grover RN - 04/01/2023 0829 EDT Yes - I wpoke with Ever about that and he agrees that the pregabalin cannot be stopped. * Telephone Encounter - Brayan Polk MD - 03/29/2023 1649 EDT Agree pregabalin would be more likely to cause weight gain, but I'd be very hesitant to change it since it's been so hard to get her seizures under control. * Telephone Encounter - Vashti Grover RN - 03/29/2023 1520 EDT Ever wanted to touch base because they haven't seen you in a while. Ynes has gained 60 lbs recently. Is this due to the methocarbamol? I told him that in my experience the pregabalin would most likely be causing her weight gain. If the methocarbamol is helping her do not change and she cannot getoff the pregabalin, per Ever. He says he will wait until Ynes can walk to start working on weight loss. She has a uti 4 days ago and now she is feeling better. Nothing else to report at this time. * Telephone Encounter - Angie Haley - 03/29/2023 1513 EDT Ever said he has a question and would like a call befor we leave. documented in this encounter Plan of Treatment Upcoming Encounters Date Type Department Care Team (Late st Contact Info) Description 03/04/2025 14:[address] [facility] [address] [place] [id number] Brayan Polk MD 130 [facility] [address] [place] [phone] 07/14/2025 14:30 EDT Office Visit [facility] Cancer Center Hematology & Oncology - [address] [phone] Evin Maria MD 111 [facility], [address] [place] [phone] documented as of this encounter Visit Diagnoses Not on filedocumented in this encounter Care Teams Massage Therapist Relationship Specialty Start Date End Date Romario Hairston MD [address], [address] [address] PCP - General 07/06/20 documented as of this encounter
--- OUTSIDE RECORDS SUMMARY | 2024-12-03 15:53 | XMS_ITS | Encounter Summary ---
Author Organization [facility] Address [address] [place] [address] Care Team Providers Care Goat Driver Name Role Phone Romario Hairston MD Primary Care Provider +1- [phone] Encounter Details Date Type Department Care Team (Latest Contact Info) Description 02/28/2023 Plan of Care Documentation [facility] [address] [place] [address] Social History Tobacco Use Types Packs/Day Years [...] Progress Notes * Sharmila Aden, OT - 02/28/2023 1119 EDT Outpatient Rehab Plan of Care Therapy Diagnosis: decreased strength, vision, sensation in BUEs, decreased FMC, GMC, decreased memory, attention, cognition, decreased ADLs, IADLs due to evacuation of cerebral venous thrombosis Problem List: Impaired ADLs, Impaired instrumental ADLs, Decreased strength, Limited activity tolerance, Decreased coordination, Impaired cognition, Limited attention and Limited concentration Assessment: Pt has actively participated in skilled treatment. Pt demonstrated improved company secretary and pinch strength as compared to previous progress note. Pt also improved FMC as evidenced by improved 9 hole peg test. Pt reports getting books and magazines from library. Pt was unable to read the books.Pt has been completing collage activity. Pt completed typing activity this date with mod verbal cues for accuracy and visual cues for letters required. Instructed pt to use calendar and visual schedule in order to type up her daily activities. Pt verbalized understanding. Pt has achieved 2 STGs and1 LTG, is making steady progress towards remaining goals. Pt is recommended and agreeable to continue [...] as clinically indicated Therapy Treatment to include: 46285 - Therapeutic Exercise, 84482 - Neuromuscular Re-education, 91133 - Therapeutic Activity and 41667 - Self Care/Home Management Recommended Consults: none [...] of care outlined on this document dated 02/26/2023. Thank you! Attending Physician Signature Date Sharmila Aden OT 02/28/2023 11:18 documented in this encounter Plan of Treatment Upcoming Encounters Date Type Department Care Team (Late st Contact Info) Description 03/04/2025 14:00 EDT Telemedicine [facility] Neurology Clinic [address] [place] [address] Brayan Polk MD 130 [facility] [address] [place] [phone] 07/14/2025 14:30 EDT Office Visit [facility] Cancer Center Hematology & Oncology - [facility] [address], [place] [phone] Evin Maria MD [address] [facility], [address] [place] [address] documented as of this encounter Visit Diagnoses Not on filedocumented in this encounter Care Teams Goat Driver Relationship Specialty Start Date End Date Romario Hairston MD [address], [address] [id number] PCP - General 07/06/20 documented as of this encounter
--- OUTSIDE RECORDS SUMMARY | 2024-12-03 15:53 | XMS_ITS | Encounter Summary ---
Author Organization [facility] Address [address] [place] [address] Care Team Providers Care Tool Setter Apprentice Name Role Phone Romario Hairston MD Primary Care Provider +1- [phone] Reason for Visit * Reason Onset Date Comments Medications Refill 02/26/2023 Encounter Details Date Type Department Care Team (Late st Contact Info) Description 02/26/2023 Orders Only [facility] [address], [place] [phone] Vashti Grover RN Social History Tobacco Use Types Packs/Day Years [...] by mouth 2 times daily. 60 Tablet 2 02/26/2023 05/29/2023 documented in this encounter Plan of Treatment Upcoming Encounters Date Type Department Care Team (Late st Contact Info) Description 03/04/2025 14:00 EDT Telemedicine [facility] Neurology Clinic [address] [place] [phone] Brayan Polk MD [address] [place] [address] [address] [place] [phone] 07/14/2025 14:30 EDT Office Visit [facility] Cancer Center Hematology & Oncology - [address] [phone] Evin Maria MD [address] [place] [address], [address] [place] [address] documented as of this encounter Visit Diagnoses Not on filedocumented in this encounter Discontinued Medications Medication Sig Discontinue Reason Start Date End Da te methocarbamoL (ROBAXIN) 500 mg tablet Take 1 Tablet by mouth 2 times daily. Reorder 11/23/2022 02/26/2023 documented as of this encounter Care Teams Tool Setter Apprentice Relationship Specialty Start Date End Date Romario Hairston MD [address], [address] [place] [address] PCP - General 07/06/20 documented as of this encounter
--- OUTSIDE RECORDS SUMMARY | 2024-12-03 15:53 | XMS_ITS | Encounter Summary ---
Author Organization [facility] Address [address] [place] [address] Care Team Providers Care Signal Tower Director Name Role Phone Romario Hairston MD Primary Care Provider +1- [phone] Reason for Visit * Reason Onset Date Comments Appointment Related 10/23/2022 Encounter Details Date Type Department Care Team (Late st Contact Info) Description 10/23/2022 Telephone [facility] Cancer Center Hematology & Oncology - [address] [address] Evin Maria MD [address] [place] [address], [address] [place] [address] Appointment Related Social History Tobacco [...] encounter Miscellaneous Notes * Telephone Encounter - Cecelia Guerin - 10/23/2022 0824 EST Left message for Ynes PYLE follow up to the appt she missed with EDENILSON with date and time also sent AVS as pt does not use Mychart documented in this encounter Plan of Treatment Upcoming Encounters Date Type Department Care Team (Late st Contact Info) Description 03/04/2025 14:00 EDT Telemedicine [facility] Neurology Clinic [address] [place] [address] Brayan Polk MD 130 [facility] [address] [place] [address] 07/14/2025 14:30 EDT Office Visit [facility] Cancer Center Hematology & Oncology - [address] [address] Evin Maria MD [address] [place] [address], [facility], [address] [place] [address] documented as of this encounter Visit Diagnoses Not on filedocumented in this encounter Care Teams Signal Tower Director Relationship Specialty Start Date End Date Romario Hairston MD [address] [place] [address] PCP - General 07/06/20 documented as of this encounter
--- OUTSIDE RECORDS SUMMARY | 2024-12-03 15:53 | XMS_ITS | Encounter Summary ---
Author Organization [facility] Address [address] [place] [address] Care Team Providers Care Train Inspector Name Role Phone Romario Hairston MD Primary Care Provider +1- [phone] Reason for Visit * Reason Comments Follow-up Encounter Details Date Type Department Care Team (Late st Contact Info) Description 11/01/2022 14:[address] 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 female who returns in follow-up with her friend Ever as usual. After several other medication trials we arrived on pregabalin monotherapy which has kept her seizure and side effect free. Last visit no changes were made. Today she is doing well, getting stronger in her legs, walking a little more, putting weight back on. Ever still helps her with most things. She's alone at home most of the day. She has gained quite a bit of weight, and isn't doing much for activity, and her appetite is clearly getting back to normal, perhaps with too much sugar and too many oreos. Anxiety is also getting better. Summary: ICH related to cerebral venous thrombosis in January 2020, treated with surgical evacuation by Dr Piña, and subsequent cranioplasty, as well as likely symptomatic seizure in June for which she was briefly admitted to [facility], and placed on levetiracetam 1000mg BID which [...] got seizure and symptomatic stability on pregabalin. ALLERGIES Allergies Allergen Reactions ??? Citalopram Other reaction(s): increased anxiety ??? Duloxetine Other reaction(s): increased anxiety ??? Gabapentin ??? Levetiracetam Anxiety ??? Trazodone ??? Zolpidem Other reaction(s): sleep walking with over 5 mg CURRENT MEDICATIONS Outpatient Medications Marked as Taking for the 11/01/22 encounter (Office Visit) with Brayan Polk MD Medication Sig ??? acetaminophen (TYLENOL) 500 mg tablet Take 2 Tabs by mouth every 6 hours. ??? aspirin chewable 81 mg tablet Take 81 mg by mouth daily. ??? buPROPion (WELLBUTRIN SR) 200 mg SR tablet Take 1 Tablet by mouth daily. ??? cholecalciferol, Vitamin D3, 25 mcg (1,000 unit) tablet Take 1,000 Units by mouth daily. Reported by caregiver ??? dronabinoL (MARINOL) 2.5 mg capsule Take 1 capsule by mouth 2 times daily before lunch and dinner. Daily Max: 5 mg ??? ELIQUIS 2.5 mg tablet TAKE 1 TABLET BY MOUTH TWICE DAILY ??? GENTEAL TEARS MODERATE 0.1-0.3-0.2 % drops INSTILL 1 DROP IN BOTH EYES FOUR TIMES DAILY ??? ketoconazole (NIZORAL) 2 % cream Apply to affected toenails once to twice a day. ??? L.acid/L.casei/B.bif/B.boyd/FOS (PROBIOTIC BLEND ORAL) Take by mouth. ??? lactulose (CHRONULAC) 10 gram/15 mL solution TAKE 15 ML BY MOUTH EVERY DAY NEEDED ??? melatonin 5 mg tablet Take 5 mg by mouth at bedtime. ??? methocarbamoL (ROBAXIN) 500 mg tablet Take 1 Tablet by mouth 2 times daily. ??? metoclopramide HCl (REGLAN) 5 mg tablet Take 1 Tablet by mouth 3 times daily before meals. ??? omeprazole (PRILOSEC) 20 mg capsule TAKE 1 CAPSULE BY MOUTH EVERY DAY 30 MINUTES BEFORE BREAKFAST ??? ondansetron (ZOFRAN-ODT) 4 mg disintegrating tablet Take 1 Tablet by mouth every 8 hours as needed for Nausea. ??? polyethylene glycol (MIRALAX) 17 gram/dose powder Take 17 g by mouth daily. ??? Prazosin (MINIPRESS) 1 mg capsule TK 1 C PO QD HS ??? pregabalin (LYRICA) 100 mg capsule Take 1 capsule by mouth 2 times daily. Daily Max: 200 mg ??? propRANolol (INDERAL) 10 mg tablet TK 1 T PO Q 8 H OES PRN ??? senna (SENOKOT) 8.6 mg tablet Take 1 Tab by mouth 2 times daily as needed (Constipation). NEUROLOGIC EXAM Alert, mildly hesitant speech, occasional word substitutions but good fluency compared to prior visits. Normal extraocular movements. Good strength in the arms. Rises from a chair with some difficulty and is able to take a few steps on her own looking unsteady. NEUROIMAGING STUDIES: Personally reviewed Noncontrast head CT [...] 09/18/21 unchanged. ASSESSMENT: Ynes White is a 52 y.o. female who returns in follow-up for intracerebral hemorrhage secondary to cerebral venous thrombus in January 2020 treated with evacuation and cranioplasty, and subsequentleft hemispheric focal onset epilepsy. After multiple medication failures including some quite severe side effects from zonisamide causing her anorexia and significant weight loss, she now is on pregabalin without seizures or side effects. 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 -Continue pregabalin 100 mg twice daily for seizure prophylaxis -Follow-up next summer at next availability Brayan Polk MD I spent a total of 35 minutes on the date of this encounter meeting with the patient and reviewing documentation/coordinating care as described in the above note. No procedures were performed at the time of the visit. documented in this encounter Plan of Treatment Upcoming Encounters Date Type Department Care Team (Late st Contact Info) Description 03/04/2025 14:00 EDT Telemedicine [facility] Neurology Clinic [address] [place] [id number] Brayan Polk MD 130 [facility] [address] [place] [address] 07/14/2025 14:30 EDT Office Visit [facility] Cancer Center Hematology & Oncology - [address] [phone] Evin Maria MD [address] [place] [address], [address] [place] [phone] documented as of this encounter Visit Diagnoses Diagnosis Focal epilepsy ([facility])- Primary Localization-related (focal) (partial) epilepsy and epileptic syndromes with simple partial seizures, without mention of intractable epilepsy documented in this encounter Care Teams Train Inspector Relationship Specialty Start Date End Date Romario Hairston MD [facility], [address] [phone] PCP - General 07/06/20 documented as of this encounter
--- OUTSIDE RECORDS SUMMARY | 2024-12-03 15:53 | XMS_ITS | Encounter Summary ---
Author Organization [facility] Address [address] [place] [address] Care Team Providers Care Veneer Lathe Operator Name Role Phone Romario Hairston MD Primary Care Provider +1- [phone] Encounter Details Date Type Department Care Team (Latest Contact Info) Description 11/01/2022 Plan of Care Documentation [facility] [address] [place] [address] Social History Tobacco Use Types Packs/Day Years [...] this encounter Progress Notes * Estela Ho, BORING MACHINE OPERATOR - 11/01/2022 1015 EST Outpatient Rehab Plan of Care ASSESSMENT ?? 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 Since then, she has struggled with receptive and expressive communication, particularly related to naming, repetition, and auditory comprehension. Today's preliminary test results using the [place] Diagnostic Aphasia Battery (BDAE) exhibits improved Fluency and Recitation of automatized sequences since initial evaluation in February 2020, though Auditory Comprehension, Repetition, Naming, and Paraphasia use are all about the same as when they were first tested. Reading and Writing will be assessed next week. It should be noted that the pt's medical status has changed significantly since that time, and that with improved brain health due to new seizure medications, she may respondbetter to BORING MACHINE OPERATOR intervention now compared with back in 2019. The pt will therefore benefit from short-term trial therapy of 8 weeks to determine whether language improvement from BORING MACHINE OPERATOR intervention is likely. ?? Short-Term Goals Timeframe: 10/04/22 Goals: 1. The pt will overcome word-finding difficulties by applying word retrieval strategies (e.g. circumlocution, gesture, writing, etc) in at least 80% (16/20) of anomic instances with minimal clinician-delivered cues. 2. Pt will follow simple 2-step written directions with at least 90% accuracy given minimal clinician delivered prompting. 3. Pt will follow simple 2-step verbal directions with at least 90% accuracy given minimal clinician delivered prompting. ?? Long-Term Goals Timeframe: Goals: 1. Pt will improve confrontation naming skill from 1/15 (6%) at baseline to at least 6/15 (40%) using word-retrieval strategies as needed, independently. 2. Pt will improve auditory comprehension from 5th Percentile on basic word discrimination of the [place] Diagnostic Aphasia Examination to at least 50th percentile on this same task. ?? PLAN Medical Necessity: Therapy intervention is indicated in order to return to a premorbid level of function or significantly improve current level of function. Speech Therapy is recommended for: Treatment Frequency/ Duration: 1x a week for 8 weeks. If progress is observed in that time, continue therapy for an additional 7 weeks. Therapy Treatment to include: 21361 - Treat speech, language, voice, communication, and/or auditoryprocessing disorder Recommended Consults: None currently Development of Plan of Care: Patient and family participated in development of plan of care today. ATTENDING PHYSICIAN: Medicare certification needed. Your signature indicates you approve the therapy goals and plan of care outlined on this document dated 08/09/2022. Thank you! Attending Physician Signature Date ERIKA NORMAN 11/01/2022 10:15 documented in this encounter Plan of Treatment Upcoming Encounters Date Type Department Care Team (Late st Contact Info) Description 03/04/2025 14:00 EDT Telemedicine [facility] Neurology Clinic [address] [place] [address] Brayan Polk MD 130 [facility] [address] [place] [phone] 07/14/2025 14:30 EDT Office Visit [facility] Cancer Center Hematology & Oncology - [place] [address] [place], [place] [phone] Evin Maria MD 111 [facility], [address] [place] [address] documented as of this encounter Visit Diagnoses Not on filedocumented in this encounter Care Teams Veneer Lathe Operator Relationship Specialty Start Date End Date Romario Hairston MD [address], [address] [id number] PCP - General 07/06/20 documented as of this encounter
--- OUTSIDE RECORDS SUMMARY | 2024-12-03 15:53 | XMS_ITS | Encounter Summary ---
Author Organization [facility] Address [address] [place] [address] Care Team Providers Care Senior Engineer Name Role Phone Romario Hairston MD Primary Care Provider +1- [phone] Encounter Details Date Type Department Care Team (Latest Contact Info) Description 03/25/2023 Plan of Care Documentation [facility] [address] [place] [address] Social History Tobacco Use Types Packs/Day [...] Progress Notes * Sandra Frost, PT - 03/25/2023 1525 EDT Outpatient Rehab Plan of Care Assessment Therapy Diagnosis: Chronic stroke with gait, strength, balance, and endurance deficits. Assessment: Ynes has had a total of 23 skilled physical therapy sessions since evaluation in June 2022. She does show improvements today in her 2 minute walk test distance, though still unable to complete ambulation longer than this in the clinic due to fatigue and continued reports of dizziness with standing tasks. She has a home exercise program that she can complete at home independently.Cuing is still required for exercises. Ynes has been doing more walking at home and in the community per patient and caregiver report. Progress has been slow but she is continuing to make improvements. Anticipate up to 6 more sessions and then would like to transition patient to a home exercise juliane taveras to continue working on strength and mobility. Response to Visit: Well ?? Goal Review: Short-Term Goals Timeframe:??4 weeks (01/24/23) 1. Patient will demonstrate independent understanding of their HEP using a written handout in orderto safely and correctly complete recommended exercises in their home: pt has been provided with home program still requires cues 2. Patient will demonstrate improved standing tolerance with support from the two wheeled walker tocomplete ADLs such as dishwashing and/or self-care for 5 minutes without pain or dizziness: ongoing, performing 2-3 minutes at a time for standing, continuing to cue/recommend standing with ADLs 3. Patient will demonstrate the ability to complete a stand-step transfer with use of the two wheeled walker to safely transfer from WC <> chair or WC <> bed without assist: goal met ? Long-Term Goals Timeframe:??6 more weeks (04/30/23) 1. Patient will no [...] appointments without the need for a wheelchair: ongoing, performs 2 minute walk test today, improveddistance to 150 feet 3. Patient will demonstrate standing posture with both heels on the ground demonstrating reduce plantarflexor tightness/ contracture and improving standing balance for reduced fall risk: ongoing 4. Patient will perform at least 6 repetitions of sit to/from investigative agent 30 seconds to demonstrate improvements in LE strength/endurance, to improve transfers at home: New goal 03/19/23 5. Patient will report utilization of rolling walker for indoor mobility at least 50% of the time: New goal 03/19/23 Barriers to Learning: Memory Potential Barriers to Progress: Medical condition and Limited carryover with home program Rehabilitation Potential: Motivation/Commitment to Therapy: Good Rehabilitation Potential: Good Plan Medical Necessity: Therapy intervention is indicated in order to return to a premorbid level of function or significantly improve current level of function. Physical Therapy is recommended for: Treatment Frequency/ Duration: continue 1x week for up to 6 more sessions, then anticipate trial ofHEP Therapy Treatment to include: 90607 - Therapeutic Exercise, 71281 - Neuromuscular Re-education, 42704 - Aquatic Therapy/Exercise, [address] - Gait Training, [address] - Manual Therapy and 37047 - TherapeuticActivity Recommended Consults: None currently Development of Plan of Care: Patient participated in development of plan of care today. ?? Plan for next visit: re-assess symptoms and HEP, balance, gait, strength ?? The patient has been instructed to contact our clinic if any questions or problems should arise ATTENDING PHYSICIAN: Medicare certification needed. Your signature indicates you approve the therapy goals and plan of care outlined on this document dated 03/19/2023. Thank you! Attending Physician Signature Date Sandra Frost, PT 03/25/2023 15:23 documented in this encounter Plan of Treatment Upcoming Encounters Date Type Department Care Team (Late st Contact Info) Description 03/04/2025 14:00 EDT Telemedicine [facility] Neurology Clinic [address] [place] [address] Brayan Polk MD 130 [facility] [address] [place] [address] 07/14/2025 14:30 EDT Office Visit [facility] Cancer Center Hematology & Oncology - [address] [address] Evin Maria MD [address] [place] [address], [address] [place] [address] documented as of this encounter Visit Diagnoses Not on filedocumented in this encounter Care Teams Senior Engineer Relationship Specialty Start Date End Date Romario Hairston MD [facility], [address] [phone] PCP - General 07/06/20 documented as of this encounter
--- OUTSIDE RECORDS SUMMARY | 2024-12-03 15:53 | XMS_ITS | Encounter Summary ---
Author Organization [facility] Address [address] [place] [address] Care Team Providers Care Machine Maintenance Servicer Name Role Phone Romario Hairston MD Primary Care Provider +1- [phone] Encounter Details Date Type Department Care Team (Late st Contact Info) Description 01/29/2023 Documentation Visit [facility] Rehabilitation Therapy [address] [place], [place] [phone] Estela Ho, ERIKA [address] [place], [place] [address] Social History Tobacco Use Types Packs/Day Years [...] of Assessment Author No 03/07/2022 13:33 EDT Jsotin Chaudhary RN * Do you have serious difficulty walking or climbing stairs? (5 years old or older) Answer Date of Assessment Author Yes 03/07/2022 13:33 Jostin Henry RN * Do you have difficulty dressing or bathing? 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 Reporting Period: 08/09/22 to 11/20/22 Speech/Language Pathology Program to Date: In summary, the program has included: Circumlocution, gesture, other word-finding strategies, attention training Goal Update: Unable to report on progress towards goals due to pt not seen recently Short-Term Goals Timeframe: 10/04/22 Goals: 1. The [...] Percentile on basic word discrimination of the [place] Diagnostic Aphasia Examination to at least 50th percentile on this same task. Discharge Reason: Transportation difficulties and overwhelmed by other appointments Discharge patient at this time; future therapy will require a new physician's referral. Referring Clinician: Brayan Polk MD documented in this encounter Plan of Treatment Upcoming Encounters Date Type Department Care Team (Late st Contact Info) Description 03/04/2025 14:00 EDT Telemedicine [facility] Neurology Clinic [address] [place] [address] Brayan Polk MD 130 [facility] [address] [place] [phone] 07/14/2025 14:30 EDT Office Visit [facility] Cancer Center Hematology & Oncology - [facility] [address] [place], [place] [phone] Evin Maria MD [address] [facility] [place] [facility], [address] [place] [address] documented as of this encounter Visit Diagnoses Not on filedocumented in this encounter Care Teams Machine Maintenance Servicer Relationship Specialty Start Date End Date Romario Hairston MD [facility], [address] [phone] PCP - General 07/06/20 documented as of this encounter
--- OUTSIDE RECORDS SUMMARY | 2024-12-03 15:53 | XMS_ITS | Encounter Summary ---
Author Organization [facility] Address [address] [place] [address] Care Team Providers Care Foreign Trade Teacher Name Role Phone Romario Hairston MD Primary Care Provider +1- [phone] Reason for Visit * Reason Onset Date Comments Leg Problem 05/21/2023 Encounter Details Date Type Department Care Team (Late st Contact Info) Description 05/21/2023 Telephone [facility] [place] Neu[facility] Clinic [address] [phone] Vashti Grover RN Leg Problem Social History Tobacco Use Types Packs/Day Years [...] Telephone Encounter - Brayan Polk MD - 05/21/2023 1437 EDT Agree no change to pregabalin dose for that symptom * Telephone Encounter - Vashti Grover RN - 05/21/2023 1035 EDT Ever stopped by the office for the following two reasons: 1. Ynes is having a colonoscopy and he needs to stop the Eliquis. We told him that he should askthe provider at [facility] who ordered it for her or his PCP.. 2. Should he increase the pregabalin to 100 mg bid? Because her left leg is dragging today. Currently she is taking 150 mg bid. Ynes is responding well to PT now. She is talking much better, interacting more, she walked 100 ft the other day with a wheeled walker and safety belt. But today her left foot appears to be dragging. I told Ever that probably an injury needs to be ruled out first and that I did not think Dr. Polk would want to increase the pregabalin for this. She has PT today and I asked him to ask them toevaluate her for a bossible strain or sprain or other injury. He agreed. He is also going to ask her PCP about it. I told him I would not call unless Dr. Polk wanted to increase the pregabalin. Please advise. documented in this encounter Plan of Treatment Upcoming Encounters Date Type Department Care Team (Late st Contact Info) Description 03/04/2025 14:00 EDT Telemedicine [facility] Neurology Clinic [address] [place], [place] [phone] Brayan Polk MD 130 [facility] [address] [place] [address] 07/14/2025 14:30 EDT Office Visit [facility] Cancer Center Hematology & Oncology - [address] [address] Evin Maria MD [address] [facility], [address] [place] [phone] documented as of this encounter Visit Diagnoses Not on filedocumented in this encounter Care Teams Foreign Trade Teacher Relationship Specialty Start Date End Date Romario Hairston MD [address], [address] [address] PCP - General 07/06/20 documented as of this encounter
--- OUTSIDE RECORDS SUMMARY | 2024-12-03 15:53 | XMS_ITS | Encounter Summary ---
Author Organization [facility] Address [address] [place] [address] Care Team Providers Care Knowledge Management Consultant Name Role Phone Romario Hairston MD Primary Care Provider +1- [phone] Reason for Visit * Reason Onset Date Comments Medications Refill 08/22/2022 Encounter Details Date Type Department Care Team (Late st Contact Info) Description 08/22/2022 Telephone [facility] [place] [facility] [address] [place] [address] Vashti Galvan RN Medications Refill Social History Tobacco Use [...] 17:54 EDT Sexual Orientation Not on file COVID-19 Exposure Response Date Recorded In the last 10 days, have yo u been in contact with someone who was confirmed or suspected to have Coronavirus/COVID-19? Unable to assess 07/31/2022 18:22 EDT documented as of this encounter Functional Status [...] mouth 2 times daily. 60 Tablet 2 08/22/2022 11/23/2022 documented in this encounter Miscellaneous Notes * Addendum Note - Vashti Galvan RN - 08/22/2022 1147 EDTAddended by: VASHTI GALVAN on: 08/22/2022 11:47 Modules accepted: Orders * Telephone Encounter - Vashti Galvan RN - 08/22/2022 1147 EDT Escript sent to pharmacy * Telephone Encounter - Brayan Polk MD - 08/22/2022 1128 EDT Yes that's fine. * Telephone Encounter - Vashti Galvan RN - 08/22/2022 1110 EDT Request: methocarbamol 500 mg tabs bid and Last Visit: 06/01/2022 Next Visit: 11/01/2022 Ref Date: 07/20/2022 1 month only Action: Ask Dr. Polk Do you want to continue to prescribe methocarbamol for Marcella? documented in this encounter Plan of Treatment Upcoming Encounters Date Type Department Care Team (Late st Contact Info) Description 03/04/2025 14:00 EDT Telemedicine [facility] Neurology Clinic [address] [place] [address] Brayan Polk MD 130 [facility] [address] [place] [phone] 07/14/2025 14:30 EDT Office Visit [facility] Cancer Center Hematology & Oncology - [address] [phone] Evin Maria MD [address] [place] [address], [address] [place] [address] documented as of this encounter Visit Diagnoses Not on filedocumented in this encounter Discontinued Medications Medication Sig Discontinue Reason Start Date End Da te methocarbamoL (ROBAXIN) 500 mg tablet Take 1 Tablet by mouth 2 times daily. Reorder 07/23/2022 08/22/2022 documented as of this encounter Care Teams Knowledge Management Consultant Relationship Specialty Start Date End Date Romario Hairston MD [address], [address] [phone] PCP - General 07/06/20 documented as of this encounter
--- OUTSIDE RECORDS SUMMARY | 2024-12-03 15:53 | XMS_ITS | Encounter Summary ---
Author Organization [facility] Address [address] [place] [address] Care Team Providers Care Oil Well Service Operator Helper Name Role Phone Romario Hairston MD Primary Care Provider +1- [phone] Reason for Visit * Reason Onset Date Comments Medications Refill 05/29/2023 Encounter Details Date Type Department Care Team (Late st Contact Info) Description 05/29/2023 Refill [facility] Cancer Center Hematology & Oncology - [address] [address] Evin Maria MD [address] [place] [address], [address] [place] [phone] Medications Refill Social History Tobacco Use Types [...] Author No 07/31/2022 18:20 EDT Afia Mejia, AZALEA * Are you blind or do you [...] Refills Last Filled Start Date End Date apixaban (ELIQUIS) 2.5 mg tablet Take 1 Tablet by mouth 2 times daily. 60 Tablet 6 05/29/2023 documented in this encounter Miscellaneous Notes * Telephone Encounter - Mile Ozuna - 05/29/2023 1336 EDT Medication(s) Requested: Eliquis Pharmacy: [facility] Next Visit Date: N/A Last Visit Date: 11/27/2022 Out of Medication? Yes Mile Ozuna 05/29/2023 13:36 documented in this encounter Plan of Treatment Upcoming Encounters Date Type Department Care Team (Late st Contact Info) Description 03/04/2025 14:00 EDT Telemedicine [facility] [place] Neu[facility] Clinic [address] [place] [address] Brayan Polk MD 130 [facility] [address] [place] [address] 07/14/2025 14:30 EDT Office Visit [facility] Cancer Center Hematology & Oncology - [facility] [address] [place], [place] [phone] Evin Maria MD 111 [facility], [address] [place] [phone] documented as of this encounter Visit Diagnoses Not on filedocumented in this encounter Discontinued Medications Medication Sig Discontinue Reason Start Date End Da te ELIQUIS 2.5 mg tablet TAKE 1 TABLET BY MOUTH TWICE DAILY Reorder 05/14/2023 05/29/2023 documented as of this encounter Additional Health Concerns Infection Onset Date Last Indicated Resolved Time R/O COVID-19 01/28/2024 01/28/2024 01/29/2024 0:27 EST documented as of this encounter Care Teams Oil Well Service Operator Helper Relationship Specialty Start Date End Date Romario Hairston MD [address], [address] [place] [id number] PCP - General 07/06/20 documented as of this encounter
--- OUTSIDE RECORDS SUMMARY | 2024-12-03 15:53 | XMS_ITS | Encounter Summary ---
Author Organization [facility] Address [address] [place] [address] Care Team Providers Care Logistics Supervisor Name Role Phone Romario Hairston MD Primary Care Provider +1- [phone] Reason for Visit * Reason Comments Seizures Encounter Details Date Type Department Care Team (Late st Contact Info) Description 06/20/2023 14:30 EDT Office Visit [facility] [place] Neurology Clinic [address] [place] [address] Brayan Polk MD 130 [facility] [address] [place] [address] Focal epilepsy (HCC-CMS) (Primary Dx); Nontraumatic intracerebral hemorrhage, unspecified cerebral location, unspecified laterality (HCC-CMS) Social History Tobacco Use Types Packs/Day Years [...] Progress Notes * Brayan Polk MD - 06/20/[address] [facility] Neurology Clinic PATIENT NAME: Ynes White PATIENT : 1970 PCP: Romario Hairston DATE OF SERVICE: 06/20/2023 CHIEF COMPLAINT: ICH and symptomatic seizure HISTORY Ynes White is a 53 y.o. female who returns in follow-up with her friend Ever as usual. After several other medication trials we arrived on pregabalin monotherapy which has kept her seizure and side effect free. She takes 150mg twice a day. She still continues on wellbutrin which has been far more effective or her than multiple other medications her psychiatrist had tried, so we agreed to continue it and she has remained seizure free. Weight gain with pregabalin has been a problem, but withall the other medication failures for seizure I haven't been eager to switch it for that reason. She describes also persistent trouble with reading, and having trouble getting words out even though she sees the right word in her head. She at one point also was eating a bag of cookies a day and thathas improved. Summary: ICH related to cerebral venous thrombosis in January 2020, treated with surgical evacuation by Dr Piña, and subsequent cranioplasty, as well as likely symptomatic seizure in June for which she was briefly admitted to [facility], and placed on levetiracetam 1000mg BID which [...] Outpatient Medications Marked as Taking for the 06/20/23 encounter (Appointment) with Brayan Polk MD Medication Sig ??? acetaminophen (TYLENOL) 500 mg tablet Take 2 Tabs by mouth every 6 hours. ??? apixaban (ELIQUIS) 2.5 mg tablet Take 1 Tablet by mouth 2 times daily. ??? aspirin chewable 81 mg tablet Take 1 Tablet by mouth daily. ??? buPROPion (WELLBUTRIN SR) 200 mg SR tablet Take 1 Tablet by mouth daily. ??? cholecalciferol, Vitamin D3, 25 mcg (1,000 unit) tablet Take 1 Tablet by mouth daily. Reported by caregiver ??? clotrimazole (LOTRIMIN) 1 % cream APPLY TOPICALLY TO THE AFFECTED AREA TWICE DAILY FOR 28 DAYS ??? GENTEAL TEARS MODERATE 0.1-0.3-0.2 % drops INSTILL 1 DROP IN BOTH EYES FOUR TIMES DAILY ??? ketoconazole (NIZORAL) 2 % cream Apply to affected toenails once to twice a day. ??? L.acid/L.casei/B.bif/B.boyd/FOS (PROBIOTIC BLEND ORAL) Take by mouth. ??? lactulose (CHRONULAC) 10 gram/15 mL solution TAKE 15 ML BY MOUTH EVERY DAY NEEDED ??? melatonin 5 mg tablet Take 1 Tablet by mouth at bedtime. ??? methocarbamoL (ROBAXIN) 500 mg tablet TAKE 1 TABLET BY MOUTH TWICE DAILY ??? metoclopramide HCl (REGLAN) 5 mg tablet Take 1 Tablet by mouth 3 times daily before meals. ??? OLANZapine (ZYPREXA) 20 mg tablet Take 1 Tablet by mouth at bedtime. ??? omeprazole (PRILOSEC) 20 mg capsule TAKE 1 CAPSULE BY MOUTH EVERY DAY 30 MINUTES BEFORE BREAKFAST ??? polyethylene glycol (MIRALAX) 17 gram/dose powder Take 17 g by mouth daily. ??? Prazosin (MINIPRESS) 1 mg capsule TK 1 C PO QD HS ??? pregabalin (LYRICA) 100 mg capsule Take 1 Capsule by mouth 2 times daily. Daily Max: 200 mg ??? pregabalin (LYRICA) 50 mg capsule Take 1 Capsule by mouth 2 times daily. Take one (50 mg) capsule with one (100 mg) capsule for a total dose of 150 mg 2 times daily. Max daily dose in 300 mg. Daily Max: 100 mg ??? propRANolol (INDERAL) 10 mg tablet Take I tablet by mouth every morning, 1 in the afternoon and2 tablets at bedtime as needed for anxiety. ??? senna (SENOKOT) 8.6 mg tablet Take 1 Tab by mouth 2 times daily as needed (Constipation). NEUROLOGIC EXAM Alert, mildly hesitant speech, occasional word substitutions but good fluency compared to prior visits. Walks independently with walker. NEUROIMAGING STUDIES: Personally reviewed Noncontrast head CT [...] 09/18/21 unchanged. ASSESSMENT: Ynes White is a 53 y.o. female who returns in follow-up for intracerebral hemorrhage secondary to cerebral venous thrombus in January 2020 treated with evacuation and cranioplasty, and subsequentleft hemispheric focal onset epilepsy. Stable after multiple medication failures on pregabalin despite weight gain. 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 -Continue pregabalin 100 mg twice daily for seizure prophylaxis -Follow-up 6 months Brayan Polk MD I spent a total [...] Description 03/04/2025 14:00 EDT Telemedicine [facility] [place] Neurology Clinic [address] [place] [phone] Brayan Polk MD 130 [facility] [address] [place] [phone] 07/14/2025 14:30 EDT Office Visit [facility] Cancer Center Hematology & Oncology - [address] [address] Evin Maria MD [address] [place] [address], [address] [place] [phone] documented as of this encounter Visit Diagnoses Diagnosis Focal epilepsy (HCC-CMS)- Primary Localization-related (focal) (partial) epilepsy and epileptic syndromes with simple partial seizures, without mention of intractable epilepsy Nontraumatic intracerebral hemorrhage, unspecified cerebral location, unspecified laterality (HCC-CMS) documented in this encounter Care Teams Logistics Supervisor Relationship Specialty Start Date End Date Romario Hairston MD [address], [address] [phone] PCP - General 07/06/20 documented as of this encounter
--- OUTSIDE RECORDS SUMMARY | 2024-12-03 15:53 | XMS_ITS | Encounter Summary ---
Author Organization [facility] Address [address] [place] [address] Care Team Providers Care Twisting Press Operator Name Role Phone Kimmy Hairston MD Primary Care Provider [phone]- [phone] Reason for Referral * Referral (Routine/Next Available) - Authorization Not Required Specialty Diagnoses / Procedures Referred By Mitch pruett Referred To Contact Diagnoses Screen for colon cancer Procedures COLONOSCOPY Kimmy Hairtson MD [address] [place] [address] Phone: tel: fax: Referral ID Status Reason Start Date Expiration Date Visits Requested Visits Authorized [id number] Authorization Not Required 01/10/2022 1 1 Reason for Visit * Auth/Cert (Routine) Specialty Diagnoses / Procedures Referred By Mitch pruett Referred To Contact Referral ID Status Reason Start Date Expiration Date Visits Re quested Visits Authorized [id number] 1 1 Encounter Details Date Type Department Care Team (Latest Contact Info) Description 05/23/2023 6:49 EDT - 05/23/2023 23:[address] [facility] [address] [place] [address] Duc Lockhart MD [facility] [address] [place] [address] Screen for colon cancer Discharge Disposition: Home or Self Care Social [...] Sign Reading Time Taken Comments Blood Pressure 101/71 05/23/2023 0919 EDT Pulse - - Temperature 36.4 ??C (97.5 ??F) 05/23/2023 0912 EDT Respiratory Rate 16 05/23/2023918 EDT Oxygen Saturation 94% 05/23/2023 09 EDT Inhaled Oxygen Concentration - - Weight 96.2 kg (212 lb) 05/23/2023 075 EDT Height 165.1 cm (5' 5) 05/23/2023 075 EDT Body Mass Index 35.28 05/23/2023 0756 EDT documented in this encounter [...] Jostin Chaudhary RN documented in this encounter Medications at Time of Discharge metoclopramide HCl (REGLAN) 5 mg tablet Take 1 Tablet by mouth 3 times daily before meals. 90 Tablet 03/28/2022 omeprazole (PRILOSEC) 20 mg capsule TAKE 1 CAPSULE BY MOUTH EVERY DAY 30 MINUTES BEFORE BREAKFAST 07/05/2021 Prazosin (MINIPRESS) 1 mg capsule Take 1 Capsule by mouth at bedtime. 08/09/2020 acetaminophen (TYLENOL) 500 mg tablet Take 2 Tabs by mouth every 6 hours. 07/14/2020 4 aspirin chewable 81 mg tablet Take 1 Tablet by mouth daily. 3 buPROPion (WELLBUTRIN SR) 200 mg SR tablet [...] 5 mg 60 capsule 1 03/28/2022 4 ELIQUIS 2.5 mg tablet TAKE 1 TABLET BY MOUTH TWICE DAILY 60 Tablet 6 05/14/2023 3 GENTEAL TEARS MODERATE 0.1-0.3-0.2 % drops INSTILL 1 DROP IN BOTH EYES FOUR TIMES DAILY 02/04/2022 4 ketoconazole (NIZORAL) 2 % cream Apply to affected toenails once to twice a day. 60 g 1 07/23/2022 4 L.acid/L.casei/B.bif /B.boyd/FOS (PROBIOTIC BLEND ORAL) Take by mouth. 4 lactulose (CHRONULAC) 10 gram/15 mL solution TAKE 15 ML BY MOUTH EVERY DAY NEEDED 11/16/2020 4 melatonin 5 mg tablet Take 2 Tablets by mouth at bedtime. 4 methocarbamoL (ROBAXIN) 500 mg tablet Take 1 Tablet by mouth 2 times daily. 60 Tablet 2 02/26/2023 3 OLANZapine (ZYPREXA) 20 mg tablet Take 1 Tablet by mouth at bedtime. 12/05/2022 4 ondansetron (ZOFRAN-ODT) 4 mg disintegrating tablet Take 1 Tablet by mouth every 8 hours as needed for Nausea. 10 Tablet 02/25/2022 4 polyethylene glycol (MIRALAX) 17 gram/dose powder Take 17 g by mouth daily. 510 g 03/31/2020 4 pregabalin (LYRICA) 100 mg capsule Take 1 Capsule by mouth 2 times daily. Daily Max: 200 mg 60 Capsule 5 05/21/2023 3 pregabalin (LYRICA) 50 mg capsule Take 1 Capsule by mouth 2 times daily. Take one (50 mg) capsule with one (100 mg) capsule for a total dose of 150 mg 2 times daily. Max daily dose in 300 mg. Daily Max: 100 mg 30 Capsule 5 01/21/2023 3 propRANolol (INDERAL) 10 mg tablet Take I tablet by mouth every morning, 1 in the afternoon and 2 tablets at bedtime as needed for anxiety. 360 Tablet 3 01/04/2023 4 senna (SENOKOT) 8.6 mg tablet Take 1 Tab by mouth 2 times daily as needed (Constipation) . 03/30/2020 4 documented as of this encounter Discharge Disposition Disposition Code Departure Means Destination Home or Self Care documented in this encounter H&P Notes * Duc Lockhart MD - 05/23/2023 0800 EDT Endoscopy Sedation for Procedure History & Physical Date: 05/23/2023 Time: 8:19 Location: [facility] Endoscopy Planned Procedure: Colonoscopy Chief Complaint/Indications for Procedure: Screen for colon cancer History Previous Complication with Sedation and/or Anesthesia? No Allergies: Allergies Allergen Reactions ??? Citalopram Other reaction(s): increased anxiety ??? Duloxetine Other reaction(s): increased anxiety ??? Gabapentin ??? Levetiracetam Anxiety ??? Trazodone ??? Zolpidem Other reaction(s): sleep walking with over 5 mg Current Medications: Current Outpatient Medications Medication ??? acetaminophen (TYLENOL) 500 mg tablet ??? aspirin chewable 81 mg tablet ??? buPROPion (WELLBUTRIN SR) 200 mg SR tablet ??? cholecalciferol, Vitamin D3, 25 mcg (1,000 unit) tablet ??? clotrimazole (LOTRIMIN) 1 % cream ??? dronabinoL (MARINOL) 2.5 mg capsule ??? ELIQUIS 2.5 mg tablet ??? GENTEAL TEARS MODERATE 0.1-0.3-0.2 % drops ??? ketoconazole (NIZORAL) 2 % cream ??? L.acid/L.casei/B.bif/B.boyd/FOS (PROBIOTIC BLEND ORAL) ??? lactulose (CHRONULAC) 10 gram/15 mL solution ??? melatonin 5 mg tablet ??? methocarbamoL (ROBAXIN) 500 mg tablet ??? metoclopramide HCl (REGLAN) 5 mg tablet ??? OLANZapine (ZYPREXA) 20 mg tablet ??? omeprazole (PRILOSEC) 20 mg capsule ??? ondansetron (ZOFRAN-ODT) 4 mg disintegrating tablet ??? polyethylene glycol (MIRALAX) 17 gram/dose powder ??? Prazosin (MINIPRESS) 1 mg capsule ??? pregabalin (LYRICA) 100 mg capsule ??? pregabalin (LYRICA) 50 mg capsule ??? propRANolol (INDERAL) 10 mg tablet ??? senna (SENOKOT) 8.6 mg tablet Current Facility-Administered Medications Medication Route Frequency ??? sodium chloride 0.9 % (NS) infusion intravenous PRN Or ??? lactated ringers (LR) infusion intravenous PRN ??? lidocaine (PF) 10 mg/mL (1 %) injection 2 mg intradermal PRN ??? lidocaine (PF) 10 mg/mL (1 %) injection 2 mg intradermal PRN ??? ondansetron (PF) (ZOFRAN) injection 4 mg intravenous Once PRN ??? sodium chloride 0.9 % (flush) flush 5 mL intravenous PRN Past Medical History: Past Medical History: Diagnosis Date ??? 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 Exercise involving walking flat surfaces ??? History of cranial surgery 07/12/2020 ??? History of general anesthesia ??? Left-sided nontraumatic intracerebral hemorrhage (HCC) (H[facility]) 03/02/2020 Status post decompressive hemicraniectomy ??? Memory disorder ??? Shoulder joint pain right ??? UTI (urinary tract infection) Social History: History reviewed. No pertinent surgical history. Social History Tobacco Use ??? Smoking status: Every Day Packs/day: 0.25 Years: 15.00 Total pack years: 3.75 Types: Cigarettes ??? Smokeless tobacco: Never Substance Use Topics ??? Alcohol use: Never Family History: Family History Problem Relation Age of Onset ??? Cancer Mother 72 Liver ??? Cancer Father 79 mesothelioma ??? Cancer Maternal Grandmother 80 Review of Systems as pertinent: Physical Exam Vital Signs: BP 99/71 Temp 36.4 ??C (97.6 ??F) (Oral) Ht 165.1 cm (65) Wt 96.2 kg (212 lb) SpO2 93% BMI 35.28 kg/m?? Heart Examination: Cardiac Regularity: Regular Respiratory Examination: Respiratory Pattern: Regular Breath Sounds Right: Clear Breath Sounds Left: Clear Abdominal Examination: Additional physical exam related to the proposed procedure, patient activity, disease state and treatment as pertinent: Assessment Previous complications with sedation or anesthesia?: No Airway Concerns: None/NA Anesthesia Classification: ASA 2 Plan: Proceed with sedation for procedure Fasting Time: Date of Last Liquid: 05/23/23 Time of Last Liquid: 0500 Date of Last Solid: 05/22/23 Time of Last Solid: 0800 Patient Appropriate Candidate for Planned Sedation?: Yes Duc Lockhart MD 05/23/2023 8:19 documented in this encounter Plan of Treatment Upcoming Encounters Date Type Department Care Team (Late st Contact Info) Description 03/04/2025 14:00 EDT Telemedicine [facility] Neurology Clinic [address] [place], [place] [address] Brayan Polk MD [address] [facility] [place] [address] 07/14/2025 14:30 EDT Office Visit [facility] Cancer Center Hematology & Oncology - [address] [address] Evin Maria MD 111 [facility], [facility], [address] [place] [address] documented as of this encounter Procedures Procedure Name Priority Date/Time Associated Diagnosis Comments ECG REPORT - SCANNED 05/24/2023 10:06 EDT SURGICAL PATHOLOGY Routine 05/23/2023 8: 32 EDT Screen for colon cancer COLONOSCOPY Routine 05/23/2023 8:00 EDT Screen for colon cancer documented in this encounter Results * ECG REPORT - SCANNED (05/24/2023 10:06 EDT) 05/24/2023 10:0 6 EDT us Scan 2 Police Pilot PROCEDURE/MINOR SURGICAL OR DERABLES Final Result * SURGICAL PATHOLOGY (05/23/2023 8:32 EDT) Note to Patient The following pathology results have been interpreted by your pathologist and may be available to you before your health provider has had the opportunity to review them. Please allow time for your provider to receive these results and explore management options, if applicable. 05/24/2023 12:35 EDT [facility] Final Diagnosis A. TRANSVERSE COLON, BIOPSY: - Tubular adenoma. 05/24/2023 12:35 EDT [facility] Attestation By the signature below, the attending physician certifies that they have 1) personally conducted a gross and/or microscopic examination of the described specimen(s), and/or personally interpreted the results of laboratory testing of the described specimen(s), and 2) personally rendered or confirmed the above diagnosis. 05/24/2023 12:35 [facility] at 1235 Clinical History Screen for colon cancer 05/24/2023 12:35 [facility] Gross Description A. The specimen is received in formalin labeled with ? Napoleon White? and ? transverse colon polyp? are 4 mucosal fragments that range in size from 0.1 x 0.2 x 0.3 cm up to 0.2 x 0.3 x 0.4 cm. The specimen is entirely submitted in 1 cassette. JI ASHBY 05/23/2023 11:57 05/24/2023 12:35 [facility] Performing Lab [facility] 05/24/2023 12:35 [facility] Scanned Images 05/24/2023 12:35 [facility] Tissue POLYP OF COLON / Unknown 05/23/2023 8:32 EDT 05/23/2023 11:41 EDT Duc Lockhart MD PATHOLOGY ORDERABLES Final Result Performing Organization Address City/State/RUST Co de Phone Number [facility] [address] [place] [address] * COLONOSCOPY (05/23/2023 8:00 EDT) Anatomical Region Laterality Modality Endoscopy Narrative 05/23/2023 8:00 EDT [facility] ?? [address] [place] [address] ?? Patient Name ?NAPOLEON WHITE Date of ?1970 Record Number ?[id number] Date/Time of Procedure ?05/23/2023, 08:00:00 AM Endoscopist ?Duc Lockhart ?? Car Varnisher ? Referring Physician(s) ?? KIMMY HAIRSTON , Anesthesiologist ? Procedure Performed: COLONOSCOPY Indications for Exam: Screening Colonoscopy. Instruments: ? [id number] ([id number]) Medications: ?Fentanyl 50 mcg, Versed 3 mg [...] 05/23/2023 08:46:37 AM By Duc Lockhart M.D. Result [facility] Kimmy Hairston MD GI PROCEDURE ORDERABLES Fi nal Result documented in this encounter Visit Diagnoses Diagnosis Screen for colon cancer Special screening for malignant neoplasms, colon documented in this encounter Administered Medications Inactive Administered Medications - up to 3 most recent administrations Medication Order MAR Action Action Date Dose Rate Site fentaNYL citrate (PF) injection intravenous, As needed, Starting on Tiffanie 05/23/23 at 0819, Until Tiffanie 05/23/23 at 0819, Routine, Intraprocedure Given 05/23/2023 8:19 EDT 50 mcg midazolam (VERSED) injection intravenous, As needed, Starting on Tiffanie 05/23/23 at 0819, Until Tiffanie 05/23/23 at 0825, Routine, Intraprocedure Given 05/23/2023 8:25 EDT 1 mg Given 05/23/2023 8:19 EDT 2 mg documented in this encounter Orders Medications Ordered That Babak ht Not Have Been Administered Count Last Ordered Date First Ordered Date lactated ringers (LR) infusion 1 05/23/2023 lidocaine (PF) 10 mg/mL (1 % ) injection 2 mg 2 05/23/2023 ondansetron (PF) (ZOFRAN) injection 4 mg 1 05/23/2023 sodium chloride 0.9 % (flush) flush 5 mL 1 05/23/2023 sodium chloride 0.9 % (NS) infusion 1 05/23 documented in this encounter Care Teams Twisting Press Operator Relationship Specialty Start Date End Date Kimmy Hairston MD [address] [place] [address] PCP - General 07/06/20 documented as of this encounter
--- OUTSIDE RECORDS SUMMARY | 2024-12-03 15:53 | XMS_ITS | Encounter Summary ---
Author Organization [facility] Address [address] [place] [address] Care Team Providers Care Baker Biscuit Name Role Phone Romario Hairston MD Primary Care Provider +1- [phone] Reason for Visit * Reason Comments Medications Refill Encounter Details Date Type Department Care Team (Late st Contact Info) Description 10/18/2022 Refill [facility] Cancer Center Hematology & Oncology - [address] [address] Evin Maria MD [address] [place] [address], [address] [place] [address] Medications Refill Social History Tobacco Use Types [...] Refills Last Filled Start Date End Date ELIQUIS 2.5 mg tablet TAKE 1 TABLET BY MOUTH TWICE DAILY 60 Tablet 6 10/19/2022 05/14/2023 documented in this encounter Plan of Treatment Upcoming Encounters Date Type Department Care Team (Late st Contact Info) Description 03/04/2025 14:00 EDT Telemedicine [facility] Neu[facility] Clinic [address] [place] [id number] Brayan Polk MD 130 [facility] [place] [address] 07/14/2025 14:30 EDT Office Visit [facility] Cancer Center Hematology & Oncology - [address] [address] Evin Maria MD [address] [place] [address], [address] [place] [address] documented as of this encounter Visit Diagnoses Not on filedocumented in this encounter Discontinued Medications Medication Sig Discontinue Reason Start Date End Da te ELIQUIS 2.5 mg tablet TAKE 1 TABLET BY MOUTH TWICE DAILY 11/07/2021 10/19/2022 documented as of this encounter Additional Health Concerns Infection Onset Date Last Indicated Resolved Time R/O COVID-19 01/28/2024 01/28/2024 01/29/2024 0:27 EST documented as of this encounter Care Teams Baker Biscuit Relationship Specialty Start Date End Date Romario Hairston MD [facility] [place] [place] [address] PCP - General 07/06/20 documented as of this encounter
--- OUTSIDE RECORDS SUMMARY | 2024-12-03 15:53 | XMS_ITS | Encounter Summary ---
Author Organization [facility] Address [address] [place] [address] Care Team Providers Care Drum Straightener Name Role Phone Romario Hairston MD Primary Care Provider +1- [phone] Reason for Visit * Reason Onset Date Comments Medications Refill 05/21/2023 Encounter Details Date Type Department Care Team (Late st Contact Info) Description 05/21/2023 Refill [facility] Neurology Clinic [address] [place], [place] [id number] Vashti Grover RN Medications Refill Social History [...] 200 mg 60 Capsule 5 05/21/2023 3 documented in this encounter Miscellaneous Notes * Telephone Encounter - Vashti Grover RN - 05/21/2023 0905 EDT Prescription did not transmit electronically. Called into pharmacy directly. * Telephone Encounter - Vashti Grover RN - 05/21/2023 0901 EDT Refill request for pregabalin 100 mg bid. Escript as requested per ACCESS SERVICE REPRESENTATIVE note on 11/01/2022. documented in this encounter Plan of Treatment Upcoming Encounters Date Type Department Care Team (Late st Contact Info) Description 03/04/2025 14:00 EDT Telemedicine [facility] Neurology Clinic [address] [place] [address] Brayan Polk MD 130 [facility] [place] [address] 07/14/2025 14:30 EDT Office Visit [facility] Cancer Center Hematology & Oncology - [facility] [address] [place], [place] [address] Evin Maria MD 111 [facility], [address] [place] [phone] documented as of this encounter Visit Diagnoses Not on filedocumented in this encounter Discontinued Medications Medication Sig Discontinue Reason Start Date End Da te pregabalin (LYRICA) 100 mg capsule Take 1 Capsule by mouth 2 times daily. Daily Max: 200 mg Reorder 01/29/2023 05/21/2023 documented as of this encounter Care Teams Drum Straightener Relationship Specialty Start Date End Date Romario Hairston MD [address], [address] [id number] PCP - General 07/06/20 documented as of this encounter
--- OUTSIDE RECORDS SUMMARY | 2024-12-03 15:53 | XMS_ITS | Encounter Summary ---
Author Organization [facility] Address [address] [place] [address] Care Team Providers Care Gauge Controller Name Role Phone Romario Hairston MD Primary Care Provider +1- [phone] Reason for Visit * Reason Onset Date Comments Medications Refill 01/21/2023 Encounter Details Date Type Department Care Team (Late st Contact Info) Description 01/21/2023 Telephone [facility] Clinic [address] [place] [address] Vashti Grover RN Medications Refill [...] Filled Start Date End Date pregabalin (LYRICA) 50 mg capsule Take 1 Capsule by mouth 2 times daily. Take one (50 mg) capsule with one (100 mg) capsule for a total dose of 150 mg 2 times daily. Max daily dose in 300 mg. Daily Max: 100 mg 30 Capsule 5 01/21/2023 documented in this encounter Miscellaneous Notes * Telephone Encounter - Vashti Grover RN - 01/21/2023 1036 EST Refill for pregabalin 50 mg called into the pharmacy per 01/17/2023 note. documented in this encounter Plan of Treatment Upcoming Encounters Date Type Department Care Team (Late st Contact Info) Description 03/04/2025 14:00 EDT Telemedicine [facility] Neurology Clinic [address] [place], [place] [phone] Brayan Polk MD 130 [facility] [place] [address] 07/14/2025 14:30 EDT Office Visit [facility] Cancer Center Hematology & Oncology - [address] [id number] Evin Maria MD 111 [facility], [address] [place] [phone] documented as of this encounter Visit Diagnoses [...] in 300 mg. Daily Max: 100 mg Reorder 01/18/2023 01/21/2023 documented as of this encounter Care Teams Gauge Controller Relationship Specialty Start Date End Date Romario Hairston MD [address], [address] [address] PCP - General 07/06/20 documented as of this encounter
--- OUTSIDE RECORDS SUMMARY | 2024-12-03 15:53 | XMS_ITS | Encounter Summary ---
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 Regarding pain in the lower extremities, I suspect that this may be related to previous cerebrovascular accident and physical therapy. I recommend using a heating pad for 10 to 15 minutes at a time 4-5 times a day. You could also try Epsom salt baths. Additionally we discussed the possibility ofincreasing the pregabalin which may give some added pain control benefit. We need to avoid nonsteroidal anti-inflammatory drugs due to the history of hypercoagulable state and current use of anticoagulation. Additionally I recommend avoiding opioid medications if at all possible due to the risk of causing side effects such as constipation and negative cognitive effects. We will discuss with your n eurologist whether a trial of increased pregabalin may be warranted to help treat pain in the legs. 2. Regarding nontraumatic hemorrhage of the left cerebral hemisphere, continue physical therapy andfollow-up with neurology. documented in this encounter Progress Notes * Maria Luisa Sandra RN - 01/03/2023 1530 EST CC/HPI: Patient w/ leg pain X 2 weeks. Patient has multiple medical conditions and complicated history, however here today because she is maxing out her Tylenol intake, and she continues with this leg pain/soreness, so here for advise/eval. Here with friend, they live together and he helps with all medical appts/home care. Covid Screening: In the last 72 hours, has the patient had: New or unusual cough, shortness of breath, new nasal congestion, sore throat, fever, chills, body aches, or new loss of taste or smell without a reasonable alternative diagnosis*? (If yes, assign to ARC)- N In the past 10 days, has the patient had a positive Covid test OR a confirmed close Covid exposure (<6ft for > 15mins in 24hr period)? (if yes, assign to ARC, regardless of vaccination status)-N *may be determined by RN or in discussion with available provider (SUPPLY CHAIN DESIGN MANAGER's and CCA's can defer to Charge Nurse to complete triage when appropriate) PCP: Romario Hairston * Nabil Salas MD - 01/03/2023 1530 EST [facility] Primary Care Assessment & Plan: 1. Pain in both lower extremities 2. 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 I suspect musculoskeletal pain due to atrophy and increased muscular activity at PT is the cause. No signsof DVT. Patient Instructions 1. Regarding pain in the lower extremities, I suspect that this may be related to previous cerebrovascular accident and physical therapy. I recommend using a heating pad for 10 to 15 minutes at a time 4-5 times a day. You could also try Epsom salt baths. Additionally we discussed the possibility ofincreasing the pregabalin which may give some added pain control benefit. We need to avoid nonsteroidal anti-inflammatory drugs due to the history of hypercoagulable state and current use of anticoagulation. Additionally I recommend avoiding opioid medications if at all possible due to the risk of causing side effects such as constipation and negative cognitive effects. We will discuss with your n eurologist whether a trial of increased pregabalin may be warranted to help treat pain in the legs. 2. Regarding nontraumatic hemorrhage of the left cerebral hemisphere, continue physical therapy andfollow-up with neurology. Subjective: Chief Complaint(s): Leg Pain HPI: Ynes White is a pleasant 53 yrs old female who comes in today noting Patient w/ leg pain X 2 weeks. Patient has multiple medical conditions and complicated history, however here today because she is maxing out her Tylenol intake, and she continues with this leg pain/soreness, so here for advise/eval. Had a CVA 6-8 months ago. Now she has pain in her left leg. They tried to get in to the PCPtoday to try to get some tylenol with codeine. She is on lorazepam for anxiety and the pain has been triggering more anxiety lately. Both of her upper legs are hurting and it has been worse over the last 6 days. Her legs feel heavier. She has gained about 80 pounds due to decreased activity and eating. Goes to PCP at [place]. She is using a topical analgesic but they are not sure what it is called. I have reviewed patient's tobacco history: reports that she has been smoking. She has a 3.75 pack-year smoking history. She has never used smokeless tobacco. I have reviewed and updated pertinent problem list, PMHx,PSHx,SocHx, allergies, and medications today. Review of Systems Constitutional: Negative for chills and fever. Musculoskeletal: Positive for myalgias. Negative for joint pain. Neurological: Negative for headaches. Objective: Examination: Vitals: BP 126/80 Pulse 80 Temp 36.4 ??C (97.6 ??F) Resp 18 SpO2 98% There is no height or weight on file to calculate BMI. General Exam: GENERAL APPEARANCE: no acute distress, pleasant, cooperative, expressive aphasia noted, in wheelchair. HEENT: NCAT, anicteric sclera. NECK: No masses noted, trachea midline CHEST: normal shape and expansion. EXTREMITIES: no clubbing, no cyanosis, no edema, tender to palpation over the anterior and lateral thighs bilaterally. Strength is 4/5 bilaterally in the lower extremities. No swelling noted. no calftenderness. SKIN: warm & dry. FACE: no lesions. NEUROLOGIC EXAM: alert & oriented, expressive aphasia noted, wheelchair bound Data reviewed with patient: I have reviewed the pertinent laboratory and diagnostic information in the chart with the patient and answered all questions today. Nabil Salas MD An appropriate medical screening examination was performed. The patient was assessed prior to discharge and deemed stable for discharge home. I spent a total of 38 minutes on the date of this encounter meeting with the patient and reviewing documentation/coordinating care as described in the above note. documented in this encounter Plan of Treatment Upcoming Encounters Date Type Department Care Team (Late st Contact Info) Description 03/04/2025 14:00 EDT Telemedicine [facility] - [facility] Neurology Clinic [address] [place] [id number] Brayan Polk MD [address] [place] [address] [place] [address] 07/14/2025 14:30 EDT Office Visit [facility] Hematology & Oncology - [address] [address] Evin Maria MD [address] [place] [address], [facility], [address] [place] [address] documented as of this encounter Visit Diagnoses Diagnosis Pain in both lower extremities- Primary 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
--- OUTSIDE RECORDS SUMMARY | 2024-12-03 15:53 | XMS_ITS | Encounter Summary ---
Author Organization [facility] Address [address] [place] [address] Care Team Providers Care Practice Specialist Name Role Phone Romario Hairston MD Primary Care Provider +1- [phone] Encounter Details Date Type Department Care Team (Latest Contact Info) Description 05/23/2023 Plan of Care Documentation [facility] [address] [place] [address] Social History Tobacco Use Types Packs/Day Years [...] Progress Notes * Sharmila Aden, OT - 05/23/2023 1832 EDT Outpatient Rehab Plan of Care Therapy Diagnosis: decreased strength, vision, sensation in BUEs, decreased FMC, GMC, decreased memory, attention, cognition, decreased ADLs, IADLs due to evacuation of cerebral venous thrombosis Problem List: Impaired ADLs, Impaired instrumental ADLs, Decreased strength, Limited activity tolerance, Decreased coordination, Impaired cognition, Limited attention and Limited concentration Assessment: Pt has actively participated in skilled treatment. She has demonstrated progress in strength and FMC as evidenced in objective measures. She reports increased participation in daily activities. However, has had difficulty performing home management and ADLs this past week due to weakness and unsteadiness in BLE. She will be undergoing x-rays and getting tested for UTI. Pt performed visual scanning sheets with good accuracy, however, required increased time to complete. Provided pt with word search puzzles to improve visual scanning and letter recognition. Pt completed writing activity with 3 self corrections for letters. Provided pt with writing worksheets to be completed at home with basic information. Pt verbalized understanding. Reinforced importance of performing typing, reading, and writing activities to increase structure to day. Pt verbalized understanding. Pt has achieved all STGs and 1 LTG. She is making steady progress towards LTGs. Plan to reduce visits to biweekly as she is making steady progress. Carryover is difficult with patient and requires mod verbal cues to complete. Pt in agreement. Pt is recommended and agreeable to continue per POC. Goal Review: Short-Term Goals Timeframe: 4 visits Goals: 1) Pt will initiate HEP.- MET 2) Pt will be able to fasten buttons with Mod I utilizing adaptive strategies as needed. - MET Long-Term Goals Timeframe: 10 visits Goals: 1) [...] for adaptive equipment as needed. - ADDED Equipment Needed: none Barriers to Learning: cognitive [...] recommended for: Treatment Frequency/ Duration: 1x every 2 weeks for up to 12 weeks, receding as clinically indicated Therapy Treatment to include: 88949 - Therapeutic Exercise, 79812 - Neuromuscular Re-education, 31181 - Therapeutic Activity and [address] - Self Care/Home Management Recommended Consults: none [...] of care outlined on this document dated 05/23/2023. Thank you! Attending Physician Signature Date Sharmila Aden OT 05/23/2023 18:32 documented in this encounter Plan of Treatment Upcoming Encounters Date Type Department Care Team (Late st Contact Info) Description 03/04/2025 14:00 EDT Telemedicine [facility] Neurology Clinic [address] [place] [address] Brayan Polk MD [address] [facility] [place] [phone] 07/14/2025 14:30 EDT Office Visit [facility] Hematology & Oncology - [address] [id number] Evin Maria MD [address] [facility], [address] [place] [address] documented as of this encounter Visit Diagnoses Not on filedocumented in this encounter Care Teams Practice Specialist Relationship Specialty Start Date End Date Romario Hairston MD [facility] [place][note 2][address], [address] [id number] PCP - General 07/06/20 documented as of this encounter
--- OUTSIDE RECORDS SUMMARY | 2024-12-03 15:53 | XMS_ITS | Encounter Summary ---
Author Organization [facility] Address [address] [place] [address] Care Team Providers Care Potato Chip Fryer Name Role Phone Romario Hairston MD Primary Care Provider +1- [phone] Reason for Visit * Reason Onset Date Comments Other 12/20/2022 Encounter Details Date Type Department Care Team (Late st Contact Info) Description 12/20/[address] [facility] [place] [place] Neurology Clinic [address] [place] [address] Baryan Polk MD 130 [facility] [address] [place] [address] Other Social History Tobacco Use [...] Date of Assessment Author Yes 03/07/2022 13:33 EDJostin Tafoya RN documented as of this encounter Mental Status * Because of a physical, mental, or emotional condition, do you have serious difficulty concentrating, remembering, or making decisions? (5 years old or older) Answer Entry Date Author No 03/07/2022 13:33 Jostin Henry RN documented in this encounter Miscellaneous Notes * Telephone Encounter - Angie Haley - 12/20/2022 1157 EST KERI Quick has been a bit off. She has been anxious, some memory issues and shortness of breath. Ever thinks it may be due to UTI. He said medication has been working well. documented in this encounter Plan of Treatment Upcoming Encounters Date Type Department Care Team (Late st Contact Info) Description 03/04/2025 14:[address] [facility] - [facility] [place] [place] Neurology Clinic [address] [place] [address] Brayan Polk MD 130 [facility] [address] [place] [address] 07/14/2025 14:30 EDT Office Visit [facility] Center Hematology & Oncology - [address] [address] Evin Maria MD [address] [place] [address], [facility], [address] [place] [address] documented as of this encounter Visit Diagnoses Not on filedocumented in this encounter Care Teams Potato Chip Fryer Relationship Specialty Start Date End Date Romario Hairston MD [facility] [place] [address] PCP - General 07/06/20 documented as of this encounter
--- OUTSIDE RECORDS SUMMARY | 2024-12-03 15:53 | XMS_ITS | Encounter Summary ---
Author Organization [facility] Address [address] [place] [address] Care Team Providers Care Sales Representative Wom[employer] Name Role Phone Romario Hairston MD Primary Care Provider +1- [phone] Reason for Visit * Reason Onset Date Comments Medication Questions 01/18/2023 Encounter Details Date Type Department Care Team (Late st Contact Info) Description 01/18/[address] [facility] [place] Neurology Clinic [address] [place] [address] Brayan Polk MD 130 [facility] [address] [place] [address] Medication Questions Social History Tobacco [...] Daily Max: 100 mg 30 Capsule 5 01/18/2023 documented in this encounter Miscellaneous Notes * Addendum Note - Vashti Grover RN - 01/18/2023 1319 ESTAddended by: VASHTI GROVER on: 01/18/2023 13:19 Modules accepted: Orders * Telephone Encounter - Vashti Grover RN - 01/18/2023 1315 EST Ever reports that Ynes is doing very well on her current dose of pregabalin 150 mg daily. Hardly any shaking and she feels really good and overall is doing great. I instructed him to leave the medication at that dosing 150 mg bid. Sending printed signed prescription for more 50 mg capsules. * Telephone Encounter - Brayan Polk MD - 01/18/2023 1212 EST Let's keep it where it is. 200mg twice a day, I believe. * Telephone Encounter - TeraJohnie - 01/18/2023 1017 EST Ever called and said Ynes has done well the last two weeks with increase in pregabalin. She has had fewer tremors and has slept well. He is wondering what the next step is and should they increase pregabalin dosage. documented in this encounter Plan of Treatment Upcoming Encounters Date Type Department Care Team (Late st Contact Info) Description 03/04/2025 14:00 EDT Telemedicine [facility] Neurology Clinic [address] [place] [address] Brayan Polk MD [address] [place] [address] [place] [address] 07/14/2025 14:30 EDT Office Visit [facility] Center Hematology & Oncology - [address] [phone] Eivn Maria MD [address] [place] [address], [address] [place] [phone] documented as of this encounter Visit Diagnoses [...] 300 mg. Daily Max: 100 mg Reorder 01/04/2023 01/18/2023 documented as of this encounter Care Teams Sales Representative Wom[employer] Health Relationship Specialty Start Date End Date Romario Hairston MD [address] [place] [address] PCP - General 07/06/20 documented as of this encounter
--- OUTSIDE RECORDS SUMMARY | 2024-12-03 15:53 | XMS_ITS | Encounter Summary ---
Author Organization [facility] Address [address] [place] [address] Care Team Providers Care Office Services Specialist Name Role Phone Romario Hairston MD Primary Care Provider +1- [phone] Reason for Visit * Reason Onset Date Comments Leg Pain 01/03/2023 Medications Refill 01/03/2023 Encounter Details Date Type Department Care Team (Late st Contact Info) Description 01/03/2023 Telephone [facility] Neurology Clinic [address] [place] [address] Vashti Galvan RN Leg Pain; Medications Refill Social History Tobacco Use Types [...] mg. Daily Max: 100 mg 30 Capsule 01/04/2023 3 propRANolol (INDERAL) 10 mg tablet Take I tablet by mouth every morning, 1 in the afternoon and 2 tablets at bedtime as needed for anxiety. 360 Tablet 3 01/04/2023 4 documented in this encounter Miscellaneous Notes * Addendum Note - Vashti Galvan RN - 01/04/2023 8385 ESTAddended by: VASHTI GALVAN on: 01/04/2023 14:45 Modules accepted: Orders * Telephone Encounter - Vashti Galvan RN - 01/04/2023 3369 EST Ever called. I had misunderstood him. He meant that she was taking 200 mg pregabalin each day, not each dose. So I went with your first directions and told him to go up to 150 mg bid and call back in a week or two to let us know how it is working. Escript for 50 mg capsules as tabbed. * Telephone Encounter - Brayan Polk MD - 01/04/2023 0857 EST Just saw response from separate TE and she was directed to increase pregabalin to increase to 200mgBID by express care. If this doesn't help with the pain in a week or two, I'd like to decrease it back to 100mg BID but more slowly than it was increased, down to 150mg BID for a week, then back to 100mg BID which is her antiseizure dose. * Telephone Encounter - Brayan Polk MD - 01/04/2023 0854 EST Yes, separate TE. Ok to increase pregabalin to 150mg twice a day to see if it helps with the new pain. Ask Ever to let us know in a week or so. * Telephone Encounter - Vashti Galvan RN - 01/04/2023 0829 EST Spoke with Ever. He said that she has been on propranolol for a while and you had encouraged using it. I wrote the script for how he said he is administering it. He also called because they were at [facility] urgent care yesterday because the pain in Ynes's feet was really bad. He said the doctor there was supposed to get in touch with you about increasing her pregabalin. Right now she is taking 200 mg bid.He has a phone number and it is here in the chart. * Telephone Encounter - Vashti Galvan RN - 01/03/2023 1548 EST Received a faxed request for propranolol. Only reference to this med is a 2020 order from an historical doctor. Dr. Pokl vaguely remembers her being on this med but cannot remember when. He asked me to call Ever and ask him. If she is still taking it he will refill. documented in this encounter Plan of Treatment Upcoming Encounters Date Type Department Care Team (Late st Contact Info) Description 03/04/2025 14:00 EDT Telemedicine [facility] Neurology Clinic [address] [place] [address] Brayan Polk MD 130 [facility]-[address] [place] [address] 07/14/2025 14:30 EDT Office Visit [facility] Cancer Center Hematology & Oncology - [address] [address] Evin Maria MD [address] [place] [address], [address] [place] [address] documented as of this encounter Visit Diagnoses Not on filedocumented in this encounter Discontinued Medications Medication Sig Discontinue Reason Start Date End Da te propRANolol (INDERAL) 10 mg tablet TK 1 T PO Q 8 H OES PRN Reorder 08/09/2020 01/03/2023 documented as of this encounter Care Teams Office Services Specialist Relationship Specialty Start Date End Date Romario Hairston MD [address] [place] [address] PCP - General 07/06/20 documented as of this encounter
--- OUTSIDE RECORDS SUMMARY | 2024-12-03 15:53 | XMS_ITS | Encounter Summary ---
Author Organization [facility] Address [address] [place] [address] Care Team Providers Care Gun Striper Name Role Phone Romario Hairston MD Primary Care Provider +1- [phone] Reason for Visit * Reason Onset Date Comments Medication Questions 05/21/2023 Encounter Details Date Type Department Care Team (Late st Contact Info) Description 05/21/2023 Telephone [facility] Hematology & Oncology - [address] [address] Evin Maria MD [address] [place] [address], [address] [place] [address] Medication Questions Social History Tobacco Use Types [...] Answer Entry Date Author No 03/07/2022 13:33 EDJostin Tafoya RN documented in this encounter Miscellaneous Notes * Telephone Encounter - Adali Garza RN - 05/21/2023 1616 EDT Returned call - advised HOLD Sat, resume Saturday AM * Telephone Encounter - Kitty Kang - 05/21/2023 1545 EDT Patient friend called in wanting to know when she should stop the blood thinners? Colonoscopy scheduled 7 am documented in this encounter Plan of Treatment Upcoming Encounters Date Type Department Care Team (Late st Contact Info) Description 03/04/2025 14:00 EDT Telemedicine [facility] [place] [address] [place] [address] Brayan Polk MD 130 [facility]-A [address] [place] [phone] 07/14/2025 14:30 EDT Office Visit [facility] Hematology & Oncology - [facility] [address] [place], [place] [address] Evin Maria MD [address] [facility], [address] [place] [phone] documented as of this encounter Visit Diagnoses Not on filedocumented in this encounter Care Teams Gun Striper Relationship Specialty Start Date End Date Romario Hairston MD [address], [address] [id number] PCP - General 07/06/20 documented as of this encounter
--- OUTSIDE RECORDS SUMMARY | 2024-12-03 15:53 | XMS_ITS | Encounter Summary ---
Author Organization [facility] Address [address] [place] [address] Care Team Providers Care Yarding Supervisor Name Role Phone Romario Hairston MD Primary Care Provider +1- [phone] Reason for Visit * Reason Onset Date Comments Other 04/04/2023 Encounter Details Date Type Department Care Team (Late st Contact Info) Description 04/04/2023 Telephone [facility] [address] [place] [address] Brayan Polk MD [address] [facility] [address] [place] [address] Other Social History Tobacco Use [...] Telephone Encounter - Vashti Grover RN - 04/09/2023 1056 EDT Ever wanted an appointment to switch Ynes off methocarbamol that is causing weight gain. I explained that you had agreed that Lyrica is the weight gain culprit and we will not be changing that medication. Ever verbalized understanding and will see you in May. * Telephone Encounter - Brayan Polk MD - 04/04/2023 1417 EDT Since appointments are so hard to come by let's see if we can get enough information over phone to help before May appointment. * Telephone Encounter - Angie Haley - 04/04/2023 1315 EDT Ever called and left message that he wanted to set up appointment for Ynes. He said they had medication questions. documented in this encounter Plan of Treatment Upcoming Encounters Date Type Department Care Team (Late st Contact Info) Description 03/04/2025 14:00 EDT Telemedicine [facility] [address], [place] [address] Brayan Polk MD [address] [facility] [address] [place] [phone] 07/14/2025 14:30 EDT Office Visit [facility] Hematology & Oncology - [address] [address] Evin Maria MD [address] [facility], [address] 2 [place] [address] documented as of this encounter Visit Diagnoses Not on filedocumented in this encounter Care Teams Yarding Supervisor Relationship Specialty Start Date End Date Romario Hairston MD [facility], [address] [id number] PCP - General 07/06/20 documented as of this encounter
--- OUTSIDE RECORDS SUMMARY | 2024-12-03 15:53 | XMS_ITS | Encounter Summary ---
Author Organization [facility] Address [address] [place] [id number] Care Team Providers Care Manifold Operator Name Role Phone Romario Hairston MD Primary Care Provider +1- [phone] Reason for Visit * Reason Onset Date Comments Medications Refill 11/23/2022 Encounter Details Date Type Department Care Team (Late st Contact Info) Description 11/23/2022 Telephone [facility] [address] [phone] Vashti Grover RN Medications Refill Social History [...] mouth 2 times daily. 60 Tablet 2 11/23/2022 02/26/2023 documented in this encounter Miscellaneous Notes * Telephone Encounter - Vashti Grover RN - 11/23/2022 0821 EST Request: methocarbamol 500 mg bid Last Visit: 11/01/2022 Next Visit: 06/20/2023 Ref Date: 11/01 same on med list Action: Escript as tabbed documented in this encounter Plan of Treatment Upcoming Encounters Date Type Department Care Team (Late st Contact Info) Description 03/04/2025 14:00 EDT Telemedicine [facility] [address] [place] [address] Brayan Polk MD [address] [place] [address] [place] [address] 07/14/2025 14:30 EDT Office Visit [facility] Center Hematology & [place] [address] Evin Maria MD [address] [place] [address], [address] 2 [place] [address] documented as of this encounter Visit Diagnoses Not on filedocumented in this encounter Discontinued Medications Medication Sig Discontinue Reason Start Date End Da te methocarbamoL (ROBAXIN) 500 mg tablet Take 1 Tablet by mouth 2 times daily. Reorder 08/22/2022 11/23/2022 documented as of this encounter Care Teams Manifold Operator Relationship Specialty Start Date End Date Romario Hairston MD [address] [place] [address] PCP - General 07/06/20 documented as of this encounter
--- OUTSIDE RECORDS SUMMARY | 2024-12-03 15:53 | XMS_ITS | Encounter Summary ---
Author Organization [facility] Address [address] [place] [address] Care Team Providers Care Travel Nurse Name Role Phone Romario Hairston MD Primary Care Provider +1- [phone] Encounter Details Date Type Department Care Team (Latest Contact Info) Description 01/01/2023 Plan of Care Documentation [facility] [address] [place] [address] Social History Tobacco Use Types Packs/Day [...] Progress Notes * Sandra Frost, PT - 01/01/2023 1229 EST Outpatient Rehab Plan of Care Assessment Therapy Diagnosis: Chronic stroke with gait, strength, balance, and endurance deficits.?? Assessment: Ynes has had 13 skilled physical therapy sessions since June 2022. She presents today with improving strength in bilateral LEs, improving gait as evidenced by ability to perform 2 minute walk test today, and improvements in her overall balance and endurance. She has been instructedin some exercises for home and was encouraged to continue with those in addition to doing standing with her ADLs (with assist from Ever) as well as to do walking with the rolling walker at home (with assist from Ever). She is continuing to make progress towards her functional goals and continues to be appropriate for skilled physical therapy to meet her goals. Response to Visit: Understands home exercise program modifications. ?? Goal Review: Short-Term Goals Timeframe:??4 weeks (01/24/23) 1. Patient will demonstrate independent understanding of their HEP using a written handout in orderto safely and correctly complete recommended exercises in their home.?? 2. Patient will demonstrate improved standing tolerance with support from the two wheeled walker tocomplete ADLs such as dishwashing and/or self-care for 5 minutes without pain or dizziness: ongoing, performing 2-3 minutes 3. Patient will demonstrate the ability to complete a stand-step transfer with use of the two wheeled walker to safely transfer from WC <> chair or WC <> bed without assist: goal met ? Long-Term Goals Timeframe:??10 weeks - (03/07/23) 1. Patient will no longer need to utilize the wheelchair for household mobility and progress to useof the two wheeled walker for all indoor ambulation: ongoing 2. Patient will demonstrate improved activity tolerance by completion of a six minute walk test with the least restrictive device to improve her ability to access community distances such as medical appointments without the need for a wheelchair: ongoing, performs 2 minute walk test today 3. Patient will demonstrate standing posture with both heels on the ground demonstrating reduce plantarflexor tightness/ contracture and improving standing balance for reduced fall risk: ongoing ?? Barriers to Learning: Memory impairments Potential Barriers to Progress: Limited performance of home exercises, standing, walking to date Rehabilitation Potential: Motivation/Commitment to Therapy: Good Rehabilitation Potential: Good Plan Medical Necessity: Therapy intervention is indicated in order to return to a premorbid level of function or significantly improve current level of function. Physical Therapy is recommended for: Treatment Frequency/ Duration: 1-2x week for up to 12 sessions Therapy Treatment to include: 50560 - Therapeutic Exercise, 85738 - Neuromuscular Re-education, [address]302 - Aquatic Therapy/Exercise, 06478 - Gait Training, 68277 - Manual Therapy and 76126 - TherapeuticActivity Recommended Consults: None currently Development of Plan of Care: Patient and caregiver participated in the plan of care today ?? Plan for next visit: re-assess symptoms and tolerance to HEP, standing balance and standing tolerance, strengthening, ROM, gait ?? The patient has been instructed to contact our clinic if any questions or problems should arise ATTENDING PHYSICIAN: Medicare certification needed. Your signature indicates you approve the therapy goals and plan of care outlined on this document dated 12/27/2022. Thank you! Attending Physician Signature Date Sandra Frost PT 01/01/2023 12:28 documented in this encounter Plan of Treatment Upcoming Encounters Date Type Department Care Team (Late st Contact Info) Description 03/04/2025 14:00 EDT Telemedicine [facility] [address] [place], [place] [address] Brayan Polk MD 130 [facility] [address] [place] [phone] 07/14/2025 14:30 EDT Office Visit [facility] Cancer Center Hematology & Oncology - [address] [phone] Evin Maria MD 111 [facility], [address] [place] [address] documented as of this encounter Visit Diagnoses Not on filedocumented in this encounter Care Teams Travel Nurse Relationship Specialty Start Date End Date Romario Hairston MD [facility], [address] [address] PCP - General 07/06/20 documented as of this encounter
--- OUTSIDE RECORDS SUMMARY | 2024-12-03 15:53 | XMS_ITS | Encounter Summary ---
Author Organization [facility] Address [address] [place] [address] Care Team Providers Care Simplex Operator Name Role Phone Romario Hairston MD Primary Care Provider +1- [phone] Reason for Visit * Reason Comments Medications Refill Encounter Details Date Type Department Care Team (Late st Contact Info) Description 05/14/2023 Refill [facility] Cancer Center Hematology & Oncology - [address] [address] Evin Maria MD [address] [place] [address], [address] [place] [address] Medications Refill Social History Tobacco [...] MOUTH TWICE DAILY 60 Tablet 6 05/14/2023 05/29/2023 documented in this encounter Plan of Treatment Upcoming Encounters Date Type Department Care Team (Late st Contact Info) Description 03/04/2025 14:00 EDT Telemedicine [facility] [place] [facility] [address] [place] [phone] Brayan Polk MD [address] [facility] [address] [place] [address] 07/14/2025 14:30 EDT Office Visit [facility] Cancer Center Hematology & Oncology - [address] [address] Evin Maria MD [address] [place] [address], [address] [place] [address] documented as of this encounter Visit Diagnoses Not on filedocumented in this encounter Discontinued Medications Medication Sig Discontinue Reason Start Date End Da te ELIQUIS 2.5 mg tablet TAKE 1 TABLET BY MOUTH TWICE DAILY 10/19/2022 05/14/2023 documented as of this encounter Additional Health Concerns Infection Onset Date Last Indicated Resolved Time R/O COVID-19 01/28/2024 01/28/2024 01/29/2024 0:27 EST documented as of this encounter Care Teams Simplex Operator Relationship Specialty Start Date End Date Romario Hairston MD [facility] [place] [address] PCP - General 07/06/20 documented as of this encounter
--- OUTSIDE RECORDS SUMMARY | 2024-12-03 15:54 | XMS_ITS | Encounter Summary ---
Author Organization [facility] Address [address] [place] [address] Care Team Providers Care Dining Room Server Name Role Phone Romario Hairston MD Primary Care Provider +1- [phone] Reason for Visit * Reason Onset Date Comments Appointment Related 07/02/2022 Encounter Details Date Type Department Care Team (Late st Contact Info) Description 07/02/2022 Telephone [facility] [place] [facility] [address], [address] [place] [address] Randi Mata RN Appointment Related Social History Tobacco Use Types Packs/Day Years Used Date Smoking Tobacco: Every Day Cigarettes 0.3 15 Smokeless Tobacco: Never Alcohol Use Standard Drinks/Week Comments Yes 0 (1 standard drink = 0.6 oz [...] hearing? Answer Date of Assessment Author No 03/07/2022 13:33 Jostin Henry, AZALEA * Are you blind or do you have serious difficulty seeing, even when wearing glasses? Answer Date of Assessment Author No 03/07/2022 13:33 Jostin Henry, RN * Do you have serious difficulty [...] encounter Miscellaneous Notes * Telephone Encounter - Randi Mata RN - 07/02/2022 1543 EDT Call placed to Ynes to schedule appointment for referral received for bilateral foot pain, onychomycosis. Spoke with Ever and scheduled appointment for 07/23/22 at 1430. documented in this encounter Plan of Treatment Upcoming Encounters Date Type Department Care Team (Late st Contact Info) Description 03/04/2025 14:00 EDT Telemedicine [facility] [place] [facility] [address] [place] [address] Brayan Polk MD [address] [place] [address] [place] [address] 07/14/2025 14:30 EDT Office Visit [facility] Hematology & Oncology - [address] [address] Evin Maria MD [address] [place] [address], [facility], [address] [place] [address] documented as of this encounter Visit Diagnoses Not on filedocumented in this encounter Care Teams Dining Room Server Relationship Specialty Start Date End Date Romario Hairston MD [address] [place] [address] PCP - General 07/06/20 documented as of this encounter
--- OUTSIDE RECORDS SUMMARY | 2024-12-03 15:54 | XMS_ITS | Encounter Summary ---
Author Organization [facility] Address [address] [place] [address] Care Team Providers Care Engineering Program Manager Name Role Phone Romario Hairston MD Primary Care Provider [phone]- [phone] Reason for Visit * Reason Comments Urinary Retention Encounter Details Date Type Department Care Team (Latest Contact Info) Description 06/11/2022 11:00 EDT Office Visit [facility] [address] [place] [address] Victor M Altman MD [address] [facility] [address] [place] [address] Neurogenic bladder as late effect of cerebrovascular accident (CVA) (Primary Dx); Cigarette nicotine dependence without complication; Tobacco abuse; Focal epilepsy (HCC-CMS) ([facility]) Social History Tobacco Use Types Packs/Day [...] 03/07/2022 13:33 EDT Jostin Chaudhary RN * Are you blind or do [...] this encounter Patient Instructions * Patient Instructions* Michael Altman MD - 06/11/2022 11:00 EDT Thank you for coming to see me today. As you know my name is Dr. Altman and I come from the [facility] to help train new doctors after a decade and a half of practice on the [facility]. I am from the [facility]. I am here as a visiting doctor to help out in our clinic here. I appreciate you coming to see me and letting me know your concerns. However, I wished Ever could behere today because he would have gained some insight today. Poonam, as your urologist today you have the Condition: Neurogenic bladder. This happens when you have some brain impairment likely from your history of brain bleed, brain surgery, brain tissue loss and underlying epilepsy. This leads to conditions such as spontaneous voiding and wetting yourself. This happens because the bladder is working autonomously. This is when the bladder automatically empties when filled. This is a normal protective mechanism that the bladder will display. There really is not a urologic surgery or procedure that we will fix this underlying problem. The best is to manage his condition which includes the following: #1, voiding every 2 or 3 hours which you are doing at this point right now. The frequency that you are voiding is actually protective of your kidney tract. #2, wear a diaper when appropriate. #3, drink plenty of lemon water to flush out your system. Never let your urine become concentrated.Coffee caffeinated products and teas will make your condition worse so I would avoid these productsif possible. I appreciate you coming in today. And again I am sorry we missed Ever today. For now your bladder empties well your kidneys look good and your kidney function looks good. Your kidney structure looked intact and there does not does. There be deterioration in the kidneys. I will go ahead and release you at this time. You have the option of coming back once a year just to check in with us. JESSICA Gatica MD documented in this encounter Progress Notes * Michael Altman MD - 06/11/2022 1100 EDT 06/11/2022 CONSULTATION CHIEF COMPLAINT Bucky Kolb MD has requested that I see Ynes White in consultation for Acute urinary retention. PATIENT: Ynes White CC: Urinary urgency frequency Dr. Polk' note from neurology: Ynes White is a 52 y.o. female who returns in follow-up with her friend Ever as usual. She has had side effects from several medications and it has been difficult to get seizure control for her. She was also hospitalized recently due to failure to thrive, with possible contribution of zonisamide while also on lacosamide while trying to titrate onto lamotrigine. She was treated during that admission for UTI as well. We tried starting Depakote but it caused her liver enzymes to elevate quickly. Oxcarbazepine caused her hyponatremia very quickly. Repeat EEG showed only expected left hemispheric changes. We started pregabalin and stopped all other AEDs, and considered lumbar puncture but she started getting better so it was canceled. She has remained on pregabalin 100mg twice a day monotherapy, while at [facility] for rehab. Today she is feeling quite well. She has been getting stronger at rehab. She has not had any episodes concerning for seizure, confirmed by Carlos Jay says that shehas been making slow steady improvements and is looking at possibly going home. She still has a cath eter in place for urination and this might be taken out on Saturday. Her nurse also observed today that it is leaking some and thought the urine might smell infected, but I called her rehab center who had checked her for UTI recently and that was negative, and they will fix the leak when she gets back today. ?? Summary: ICH related to cerebral venous thrombosis in January 2020, treated with surgical evacuation by Dr Piña, and subsequent cranioplasty, as well as likely symptomatic seizure in June for which she was briefly admitted to [facility], and placed on levetiracetam 1000mg BID which gave her worsening of anxiety causing several ED visits. Was then switched to zonisamide, which at 200mg/d was not effective enough for seizure control but at 300mg/d caused anorexia and weight loss. Brivaracetam caused tremulousness. Unsure whether lacosamide has caused ataxia. There have been episodes convincing for focal and generalized seizures as well as others various types of events possibly representing non-epileptic events. HISTORY OF PRESENT ILLNESS Ynes White is a very pleasant 52 y.o. female who presents with a history of intracerebral hemorrhage that led to seizure disorder. She is followed by Dr. Polk in neurology for her seizure disorders. I went ahead and copied his last note, her pertinent information. She comes in today without her partner Ever who is getting ready to receive her back from her [place] [facility] after a 5-month stay there. Reason for staying in the [place] was due to failure to thrive, low weight of weight loss and inability to walk. She still cannot walk. The reason for her coming to us is not for urinary retention. Is actually urinary bother due to frequency. What is notable in her medical history is the fact that she has a intra cerebral hemorrhage about 3 years ago that required clot evacuation with an open craniotomy. Since then she has been having issues due to encephalomalacia atrophy of the brain as well as seizure disorder. In reviewing her last urologic labs including her recent CT scan and it shows that her renal function is actually quite good. 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 She is unable to give a full history as she has difficulty with word finding. A lot of her speech is word salad and it does not always make sense. However in reviewing her charts I can understand what she is trying to get at. PAST HISTORY Past Medical History: Diagnosis Date ??? 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 Exercise involving walking flat surfaces ??? History of cranial surgery 07/12/2020 ??? History of general anesthesia ??? Left-sided nontraumatic intracerebral hemorrhage (HCC) 03/02/2020 Status post decompressive hemicraniectomy ??? Memory disorder ??? Shoulder joint pain right No past surgical history on file. Family History Problem Relation Age of Onset ??? Cancer Mother 72 Liver ??? Cancer Father 79 mesothelioma ??? Cancer Maternal Grandmother 80 Social History Tobacco Use ??? Smoking status: Current Every Day Smoker Packs/day: 0.25 Years: 15.00 Pack years: 3.75 ??? Smokeless tobacco: Never Used Vaping Use ??? Vaping Use: Never used Substance Use Topics ??? Alcohol use: Yes ??? Drug use: Never MEDICATIONS Current Outpatient Medications Medication Sig Dispense Refill ??? acetaminophen (TYLENOL) 500 mg tablet Take 2 Tabs by mouth every 6 hours. ??? aspirin chewable 81 mg tablet Take 81 mg by mouth daily. ??? buPROPion (WELLBUTRIN SR) 200 mg SR tablet Take 1 Tablet by mouth daily. 30 Tablet 1 ??? cholecalciferol, Vitamin D3, 25 mcg (1,000 unit) tablet Take 1,000 Units by mouth daily. Reported by caregiver ??? ciprofloxacin HCl (CIPRO) 500 mg tablet Take 500 mg by mouth 2 times daily. ??? dronabinoL (MARINOL) 2.5 mg capsule Take 1 capsule by mouth 2 times daily before lunch and dinner. Daily Max: 5 mg 60 capsule 1 ??? ELIQUIS 2.5 mg tablet TAKE 1 TABLET BY MOUTH TWICE DAILY 60 Tablet 6 ??? GENTEAL TEARS MODERATE 0.1-0.3-0.2 % drops INSTILL 1 DROP IN BOTH EYES FOUR TIMES DAILY ??? L.acid/L.casei/B.bif/B.boyd/FOS (PROBIOTIC BLEND ORAL) Take by mouth. ??? lactulose (CHRONULAC) 10 gram/15 mL solution TAKE 15 ML BY MOUTH EVERY DAY NEEDED ??? melatonin 5 mg tablet Take 5 mg by mouth at bedtime. ??? methocarbamoL (ROBAXIN) 500 mg tablet ??? metoclopramide HCl (REGLAN) 5 mg tablet Take 1 Tablet by mouth 3 times daily before meals. 90 Tablet 0 ??? omeprazole (PRILOSEC) 20 mg capsule TAKE 1 CAPSULE BY MOUTH EVERY DAY 30 MINUTES BEFORE BREAKFAST ??? ondansetron (ZOFRAN-ODT) 4 mg disintegrating tablet Take 1 Tablet by mouth every 8 hours as needed for Nausea. (Patient not taking: Reported on 06/01/2022) 10 Tablet 0 ??? polyethylene glycol (MIRALAX) 17 gram/dose powder Take 17 g by mouth daily. 510 g 0 ??? Prazosin (MINIPRESS) 1 mg capsule TK 1 C PO QD HS ??? pregabalin (LYRICA) 100 mg capsule Take 1 capsule by mouth 2 times daily. Daily Max: 200 mg 60 capsule 0 ??? propRANolol (INDERAL) 10 mg tablet TK 1 T PO Q 8 H OES PRN (Patient not taking: Reported on 06/01/2022) ??? senna (SENOKOT) 8.6 mg tablet Take 1 Tab by mouth 2 times daily as needed (Constipation). No current facility-administered medications for this visit. ALLERGIES Allergies Allergen Reactions ??? Citalopram Other reaction(s): increased anxiety ??? Duloxetine Other reaction(s): increased anxiety ??? Gabapentin ??? Levetiracetam Anxiety ??? Pregabalin Other reaction(s): dizziness ??? Trazodone ??? Zolpidem Other reaction(s): sleep walking with over 5 mg REVIEW OF SYSTEMS Negative for hematuria, flank pain, urinary frequency and urgency, urinary leakage. VITALS There were no vitals filed for this visit. PHYSICAL EXAM Patient is largely aphasic word finding difficulty. A lot of her word choices do not make sense. She is a slender almost emaciated female sitting in the chair. She also has a wheelchair at her bedside. Wearing covid mask. Nobody accompanies her today. I was specifically looking for partner Ever. Lungs: CTA bilaterally Heart: RRR Abd: soft, non tender. Very slender No CVA tenderness CT scan 01/30/22 excerpts for urologically related info Adrenal glands: Normal. No mass. Kidneys and ureters: Normal. No hydronephrosis. Lymph nodes: Unremarkable. No enlarged lymph nodes. Urinary bladder: Unremarkable as visualized. DIAGNOSTIC DATA Office Visit on 06/11/2022 Component Date Value Ref Range Status ??? Bladder Scan 06/11/2022 0 ML /PVR Final BMP: Lab Results Component Value Date NA 135 (L) 03/28/2022 K 4.0 03/28/2022 CL 103 03/28/2022 CO2 26 03/28/2022 BUN 20 03/28/2022 CREATININE 0.60 03/28/2022 CALCIUM 8.8 03/28/2022 CALCCA 9.2 03/08/2022 MG 1.5 (L) 03/28/2022 PHOS 4.6 (H) 03/28/2022 LABALBU 2.9 (L) 03/28/2022 DIAGNOSIS 1. Neurogenic bladder as late effect of cerebrovascular accident (CVA) 2. Cigarette nicotine dependence without complication 3. Tobacco abuse 4. Focal epilepsy ([facility]) ([facility]) ASSESSMENT I have reviewed this patient's baseline labs and imaging with her last CT scan from January of this year showing signs of hydronephrosis and her creatinine is 0.6 which indicates that she is not havingvoiding dysfunction leading to hydronephrosis and renal impairment. This is a very unfortunate patient who had a devastating and massive cerebral vascular accident which led to her having these autonomous neurogenic bladder functions. Her urinary leakage is due to underlying sensation of the bladder determining that it needs to empty. She does not have good cognitive control over this. However she is already doing protective steps which is timed voiding every 2 or 3 hours just due to her underlying urgency. She does also wear diaper to protect her self at night. She says that sometimes she gets up to void but most the time she sleeps through it with a diaper in place. There is nothing to be a urologic surgery to fix his problem. I do not think the usage of anticholinergics will help her situation as she may suffer further from the anticholinergic effects of medication. This will dull her cognitive function. I think that if she was able to regain her ambulatory function her voiding function will also improve. Also having good control ever epilepsy is paramount to preserving her upper motor neuron and what ever partial function she has over the [facility]. PLAN Clinically she is doing fine from a urologic point of view. Yes the urinary symptoms of frequency urgency and leakage is bothersome. However this is the natural protective mechanism of there urinary system and that should not be changed at this point. I think it is also important to be judicious about the diagnosis of urinary tract infections. If the patient is asymptomatic and does not have systemic signs of infection she should not be treated asshe will develop multi-drug resistant bacterial colonization and infection. I am going to include the after visit summary for her to be given to the [place] [facility] [place] so they understand our discussion. She can follow-up on a as needed basis with us (annual visit). Other Orders Placed This Visit Procedures ??? UROLOGY BLADDER SCAN AVS printed for pt and [place] [facility]: Thank you for coming to see me today. As you know my name is Dr. Altman and I come from the [facility] to help train new doctors after a decade and a half of practice on the [facility]. I am from the [facility]. I am here as a visiting doctor to help out in our clinic here. I appreciate you coming to see me and letting me know your concerns. However, I wished Ever could behere today because he would have gained some insight today. Poonam, as your urologist today you have the Condition: Neurogenic bladder. This happens when you have some brain impairment likely from your history of brain bleed, brain surgery, brain tissue loss and underlying epilepsy. This leads to conditions such as spontaneous voiding and wetting yourself. This happens because the bladder is working autonomously. This is when the bladder automatically empties when filled. This is a normal protective mechanism that the bladder will display. There really is not a urologic surgery or procedure that we will fix this underlying problem. The best is to manage his condition which includes the following: #1, voiding every 2 or 3 hours which you are doing at this point right now. The frequency that you are voiding is actually protective of your kidney tract. #2, wear a diaper when appropriate. #3, drink plenty of lemon water to flush out your system. Never let your urine become concentrated.Coffee caffeinated products and teas will make your condition worse so I would avoid these productsif possible. I appreciate you coming in today. And again I am sorry we missed Ever today. For now your bladder empties well your kidneys look good and your kidney function looks good. Your kidney structure looked intact and there does not does. There be deterioration in the kidneys. I will go ahead and release you at this time. You have the option of coming back once a year just to check in with us. Take care, MD JESSICA 50 minutes devoted to this encounter including review of history, labs, imaging and preparing AVS. Michael Altman MD Electronicaly signed by: Michael Altman MD documented in this encounter Plan of Treatment Upcoming Encounters Date Type Department Care Team (Late st Contact Info) Description 03/04/2025 14:00 EDT Telemedicine [facility] [address] [place] [id number] Brayan Polk MD [address] [place] [address]-[address] [place] [address] 07/14/2025 14:30 EDT Office Visit [facility] Cancer Center Hematology & Oncology - [address] [phone] Evin Maria MD [address] [place] [address], [address] [place] [phone] documented as of this encounter Procedures Procedure Name Priority Date/Time Associated Diagnosis Comments UROLOGY BLADDER SCAN Routine 06/11/2022 documented in this encounter Results * UROLOGY BLADDER SCAN (06/11/2022) Bladder Scan 0 ML /PVR [facility] OINT [facility] CARE Urine us Historical Provider UROLOGY ORDERABLES Final Result [facility] documented in this encounter Visit Diagnoses Diagnosis Neurogenic bladder as late effect of cerebrovascular accident (CVA)- Primary Cigarette nicotine dependence without complication Tobacco use disorder Tobacco abuse Tobacco use disorder Focal epilepsy ([facility]) Localization-related (focal) (partial) epilepsy and epileptic syndromes with simple partial seizures, without mention of intractable epilepsy documented in this encounter Historical Medications * This list may reflect changes made after this encounter. L.acid/L.casei/B. bif/B.boyd/FOS (PROBIOTIC BLEND ORAL) Take by mouth. 02/04/2024 ciprofloxacin HCl (CIPRO) 500 mg tabletIndications :uti Take 500 mg by mouth 2 times daily. 06/07/2022 06/12/2022 added in this encounter Care Teams Engineering Program Manager Relationship Specialty Start Date End Date Romario Hairston MD [facility] [place] [address] PCP - General 07/06/20 documented as of this encounter
--- OUTSIDE RECORDS SUMMARY | 2024-12-03 15:54 | XMS_ITS | Encounter Summary ---
Author Organization [facility] Address [address] [place] [address] Care Team Providers Care Arts And Crafts Instructor Name Role Phone Romario Hairston MD Primary Care Provider [phone]- [phone] Encounter Details Date Type Department Care Team (Late st Contact Info) Description 06/04/2022 Lab Requisition [facility] - Main [address] [phone] Anat Arnold MD [address] [place] [address] Urinary tract infection, site not specified Social History Tobacco Use Types Packs/Day Years [...] No 03/07/2022 13:33 Jostin Henry RN * Are you blind or do [...] 14:00 EDT Telemedicine [facility] [address] [place] [phone] Brayan Polk MD [address] [place] [address]- [address] [place] [address] 07/14/2025 14:30 EDT Office Visit [facility] Cancer Center Hematology & Oncology - [address] [address] Evin Maria MD [address] [place] [address], [address] [place] [address] documented as of this encounter Procedures Procedure Name Priority Date/Time Associated Diagnosis Comments BACTERIAL CULTURE, URINE Today 06/04/2022 6:00 EDT Urinary tract infection, site not specified documented in this encounter Results * (ABNORMAL) BACTERIAL CULTURE, URINE (06/04/2022 6:00 EDT) Organism ID [id number] to 100,000 CFU/ml Proteus mirabilis( A) VITEK SUSCEPTIBILITY 06/06/2022 7:47 EDT [facility] Comment: Cefazolin susceptibility results can be used to predict susceptibility results for the following oral cephalosporins when used for therapy of uncomplicated UTI's due to E.coli, K.pneumoniae and P.mirabilis: cefaclor, cefdinir, cefpodoxime, cefprozil, cefuroxime, cephalexin and loracarbef. ??Please note that only cefdinir, cefpodoxime, cefuroxime and cephalexin are on the [facility] inpatient formulary. Organism ID Less than 10,000 CFU/ml VITEK SUSCEPTIBILITY 06/06/2022 7:47 EDT [facility] Comment:Usual urogenital helen ra. Urine URINE SPECIMEN COLLECTION, CLEAN CATCH / Unknown 06/04/2022 6:00 EDT 06/04/2022 14:59 EDT Narrative Organism Antibiotic Method Susceptibility Proteus mirabilis Amoxicillin Clavulan ic acid VITEK SUSCEPTIBILITY <=2 ug/mL: Susceptible Proteus mirabilis Ampicillin VITEK SUSCEPTIBILITY <=2 ug/mL: Susceptible Proteus mirabilis Ampicillin Sulbactam VITEK SUSCEPTIB ILITY <=2 ug/mL: Susceptible Proteus mirabilis Cefazolin VITEK SUSCEPTIBILITY <=4 ug/mL: Susceptible Proteus mirabilis Cefepime VITEK SUSCEPTIBILITY <=1 ug/mL: Susceptible Proteus mirabilis Ceftriaxone VITEK SUSCEPTIBILITY <=1 ug/mL: Susceptible Proteus mirabilis Ciprofloxacin VITEK SUSCEPTIBILITY <=0.25 ug/mL: Susceptible Proteus mirabilis Ertapenem VITEK SUSCEPTIBILITY <=0.5 ug/mL: Susceptible Proteus mirabilis Gentamicin VITEK SUSCEPTIBILITY <=1 ug/mL: Susceptible Proteus mirabilis Levofloxacin VITEK SUSCEPTIBILITY <=0.12 ug/mL: Susceptible Proteus mirabilis Nitrofurantoin VITEK SUSCEPTIBILITY 128 ug/mL: Resistant Proteus mirabilis Piperacillin Tazobactam VITEK SUSCEP TIBILITY <=4 ug/mL: Susceptible Proteus mirabilis Tobramycin VITEK SUSCEPTIBILITY <=1 ug/mL: Susceptible Proteus mirabilis Trimethoprim-Sulfame tho xazole VITEK SUSCEPTIBILITY <=20 ug/mL: Susceptible us Anat Arnold MD MICROBIOLOGY - GENERAL O RDERABLES Final Result [facility] [address] [place] [address] documented in this encounter Visit Diagnoses Diagnosis Urinary tract infection, site not specified documented in this encounter Additional Health Concerns Infection Onset Date Last Indicated Resolved Time R/O COVID-19 01/28/2024 01/28/2024 01/29/2024 0:27 EST documented as of this encounter Care Teams Arts And Crafts Instructor Relationship Specialty Start Date End Date Romario Hairston MD [address] [place] [address] PCP - General 07/06/20 documented as of this encounter
--- OUTSIDE RECORDS SUMMARY | 2024-12-03 15:54 | XMS_ITS | Encounter Summary ---
Author Organization [facility] Address [address] [place] [address] Care Team Providers Care Remote Coders Name Role Phone Romario Hairston MD Primary Care Provider [phone]- [phone] Reason for Visit * Reason Onset Date Comments Medications Refill 07/23/2022 Encounter Details Date Type Department Care Team (Late st Contact Info) Description 07/23/2022 Telephone [facility] [address] [place] [address] Brayan Polk MD [address] [facility] [address] [place] [address] Medications Refill Social History Tobacco [...] by mouth 2 times daily. 60 Tablet 07/23/2022 08/22/2022 documented in this encounter Miscellaneous Notes * Telephone Encounter - Vashti Grover RN - 07/23/2022 1118 EDT Ever now wants the Robaxin sent to the [facility] in [place]. Escript as tabbed. * Telephone Encounter - Angie Haley - 07/23/2022 0742 EDT Ever called wants Ynes's medication to go to [facility] Call him [phone] documented in this encounter Plan of Treatment Upcoming Encounters Date Type Department Care Team (Late st Contact Info) Description 03/04/2025 14:00 EDT Telemedicine [facility] Neu[facility] Clinic [address] [place] [address] [facility] [address] [facility] [address] [place] [address] 07/14/2025 14:30 EDT Office Visit [facility] Cancer Center Hematology & Oncology - [address] [phone] Evin Maria MD [address] [facility], [facility], [address] [place] [address] documented as of this encounter Visit Diagnoses Not on filedocumented in this encounter Discontinued Medications Medication Sig Discontinue Reason Start Date End Da te methocarbamoL (ROBAXIN) 500 mg tablet Take 1 Tablet by mouth 2 times daily. Error 07/20/2022 07/23/2022 documented as of this encounter Care Teams Remote Coders Relationship Specialty Start Date End Date Romario Hairston MD [facility] [place], [place] [phone] PCP - General 07/06/20 documented as of this encounter
--- OUTSIDE RECORDS SUMMARY | 2024-12-03 15:54 | XMS_ITS | Encounter Summary ---
Author Organization [facility] Address [address] [place] [address] Care Team Providers Care Recruiting Team Lead Name Role Phone Romario Hairston MD Primary Care Provider +1- [phone] Reason for Visit * Reason Onset Date Comments Cognitive Changes 08/01/2022 Encounter Details Date Type Department Care Team (Late st Contact Info) Description 08/01/2022 Telephone [facility] [place] [address] [place] [address] Vashti Grover RN Cognitive Changes Social History Tobacco Use Types Packs/Day Years [...] Date of Assessment Author Yes 03/07/2022 13:33 Jotsin Henry RN * Because of a physical, [...] Telephone Encounter - Vashti Grover RN - 08/01/2022 1528 EDT I spoke with Dr. Orantes about the issue. She said that we should explain that an infection can exacerbate her symptoms and take a wait and see attitude over tonight. Dr. Polk then called back and agreed with this plan. He stated that her seizures are always thesame and not like what he is describing. He would like Ever to wait until morning and let us know how she is doing, but to instruct him to go to the ER overnight if more symptoms develop. Her head CT from yesterday did not show anything new to be concerned about. I attempted to call Ever, but one phone out of order and one phone not accepting voice mails. Will try again later. I finally got thru to Ever. He was calling the ambulance while I was calling him. He feels that she has to go to the ER the speech and mumbling and confusion are getting worse and he does not want herto seize at home. * Telephone Encounter - Vashti Grover RN - 08/01/2022 5364 EDT Ever called - he states that Ynes was in the er yesterday and dx was UTI. She started on antibiotics today. It looks like she had some speech changes yesterday in the ER. He is very concerned because She just woke up from a nap and is out of it. He says she is not making sense and when her speech starts to go then that is when 'it' happens. I tried to have him get more specific but his anxiety got in the way. He wants to know if he should bring her back to the ER due to impending stroke. I attempted to call Dr. Polk and left a voice mail. Attempted to message on [employer] and text but MD in a meeting. I will go to the emergency vehicle operations instructor neurologist, Dr. Orantes. documented in this encounter Plan of Treatment Upcoming Encounters Date Type Department Care Team (Late st Contact Info) Description 03/04/2025 14:00 EDT Telemedicine [facility] Neurology Clinic [address] [place] [phone] Brayan Polk MD [address] [place] [address] [place] [address] 07/14/2025 14:30 EDT Office Visit [facility] Cancer Center Hematology & Oncology - [address] [address] Evin Maria MD [address] [place] [address], Level [address] [place] [phone] documented as of this encounter Visit Diagnoses Not on filedocumented in this encounter Care Teams Recruiting Team Lead Relationship Specialty Start Date End Date Romario Hairston MD [address], [address] [phone] PCP - General 07/06/20 documented as of this encounter
--- OUTSIDE RECORDS SUMMARY | 2024-12-03 15:54 | XMS_ITS | Encounter Summary ---
Author Organization [facility] Address [address] [place] [address] Care Team Providers Care Ammunition Officer Name Role Phone Romario Hairston MD Primary Care Provider +1- [phone] Reason for Visit * Reason Comments Seizures Encounter Details Date Type Department Care Team (Late st Contact Info) Description 06/01/2022 16:00 EDT Office Visit [facility] - [facility] Neurology Clinic [address] [place] [address] Brayan Polk MD [address] [place] [address] [place] [address] Focal epilepsy (HCC-CMS) (HCC) (Primary Dx) Social History Tobacco Use Types [...] Progress Notes * Brayan Polk MD - 06/01/2022 1600 EDT [facility] Neurology Clinic PATIENT NAME: Ynes White PATIENT : 1970 PCP: Romario Hairston DATE OF SERVICE: 06/01/2022 CHIEF COMPLAINT: ICH and symptomatic seizure HISTORY Ynes White is a 52 y.o. female who returns in follow-up with her friend Ever as usual. She hashad side effects from several medications and it has been difficult to get seizure control for her.She was also hospitalized recently due to failure [...] 100mg twice a day monotherapy, while at [facility] for rehab. Today she is feeling quite well. She has been getting stronger at rehab. She has not had any episodes concerning for seizure, confirmed by J. Pierre says that she has been making slow steady improvements and is looking at possibly going home. She still has a kathia ter in place for urination and this might be taken out on Saturday. Her nurse also observed today that it is leaking some and thought the urine might smell infected, but I called her rehab center who had checked her for UTI recently and that was negative, and they will fix the leak when she gets backtoday. Summary: ICH related to cerebral venous thrombosis in January 2020, treated with surgical evacuation by Dr Piña, and subsequent cranioplasty, as well as likely symptomatic seizure in June for which she was briefly admitted to [facility], and placed on levetiracetam 1000mg BID [...] types of events possibly representing non-epileptic events. ALLERGIES Allergies Allergen Reactions ??? Citalopram Other reaction(s): increased anxiety ??? Duloxetine Other reaction(s): increased anxiety ??? Gabapentin ??? Levetiracetam Anxiety ??? Pregabalin Other reaction(s): dizziness ??? Trazodone ??? Zolpidem Other reaction(s): sleep walking with over 5 mg CURRENT MEDICATIONS No outpatient medications have been marked as taking for the 06/01/22 encounter (Office Visit) with Brayan Polk MD. NEUROLOGIC EXAM Alert, somewhat slow and hesitant speech but normal content, much brighter affect than when I saw her hospitalized, stays seated in wheelchair, good movement of the arms. NEUROIMAGING STUDIES: Personally reviewed Noncontrast head CT [...] cranioplasty, and subsequentleft hemispheric focal onset epilepsy. She has failed multiple medications for side effects predominantly, but also ineffectiveness at high doses, and after hospitalization for UTI and failure to thrive we got her off all other antiepileptics and put her on pregabalin. She seems to be doing well onthis medication without seizures, and is recovering well overall, though slowly. 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 -Continue pregabalin 100 mg twice daily for seizure prophylaxis -Follow-up in 4 to 5 months Brayan Polk MD I spent a [...] Contact Info) Description 03/04/2025 14:00 EDT Telemedicine [facility] - [facility] Neurology Clinic [address] [place] [phone] Brayan Polk MD [address] [facility]-A [address] [place] [phone] 07/14/2025 14:30 EDT Office Visit [facility] Cancer Center Hematology & Oncology - [address] [address] Evin Maria MD [address] [place] [address], [facility] [address] [place] [address] documented as of this encounter Visit Diagnoses Diagnosis Focal epilepsy ([facility])- Primary Localization-related (focal) (partial) epilepsy and epileptic syndromes with simple partial seizures, without mention of intractable epilepsy documented in this encounter Historical Medications * This list may reflect changes made after this encounter. Medication Sig Dispense Quantity Refills Last Filled Start D ate End Date methocarbamoL (ROBAXIN) 500 mg tablet 05/03/2022 07/20/2022 added in this encounter Care Teams Ammunition Officer Relationship Specialty Start Date End Date Romario Hairston MD [address] [place] [address] PCP - General 07/06/20 documented as of this encounter
--- OUTSIDE RECORDS SUMMARY | 2024-12-03 15:54 | XMS_ITS | Encounter Summary ---
Author Organization [facility] Address [address] [place] [address] Care Team Providers Care Silverware Etcher Name Role Phone Romario Hairston MD Primary Care Provider +1- [phone] Reason for Visit * Reason Onset Date Comments Other 04/04/2022 Encounter Details Date Type Department Care Team (Late st Contact Info) Description 04/04/2022 Telephone [facility] [place] [facility] [address] [place] [address] Vashti Grover RN Other Social History Tobacco [...] Telephone Encounter - Brayan Polk MD - 04/05/2022 1203 EDT Thanks for checking in with her. * Telephone Encounter - Vashti Grover RN - 04/05/2022 1135 EDT Ever reports that Ynes will remain in [facility] for more than 30 days. She is talking and eating better and no seizure activity has been reported. Ynes has not had any anxiety attacks. Ynes still cannot walk, has no finger strength, legs hurt. [facility] * Telephone Encounter - Vashti Grover RN - 04/04/2022 1442 EDT ----- Message from Vashti Grover RN sent at 03/29/2022 9:18 EDT ----- Ynes is being discharged to [facility] today. Could you please call her or Ever to check on how she's doing in a couple of weeks? She has an appointment in May, and there are no sooner openings. Mostly want to know she's seizure free, and eating better. documented in this encounter Plan of Treatment Upcoming Encounters Date Type Department Care Team (Late st Contact Info) Description 03/04/2025 14:00 EDT Telemedicine [facility] Neurology Clinic [address] [place], [place] [address] Brayan Polk MD [address] [facility]A [address] [place] [address] 07/14/2025 14:30 EDT Office Visit [facility] Cancer Center Hematology & Oncology - [address] [address] Evin Maria MD [address] [facility], [facility], [address] 2 [place] [address] documented as of this encounter Visit Diagnoses Not on filedocumented in this encounter Care Teams Silverware Etcher Relationship Specialty Start Date End Date Romario Hairston MD [address], [address] [address] PCP - General 07/06/20 documented as of this encounter
--- OUTSIDE RECORDS SUMMARY | 2024-12-03 15:54 | XMS_ITS | Encounter Summary ---
Author Organization [facility] Address [address] [place] [address] Care Team Providers Care Engineering Operator Name Role Phone Romario Hairston MD Primary Care Provider +1- [phone] Reason for Visit * Reason Onset Date Comments Medications Refill 07/31/2022 Encounter Details Date Type Department Care Team (Late st Contact Info) Description 07/31/2022 Telephone [facility] [facility] [address] [place] [address] Brayan Polk MD [address] [facility] [place] [address] Medications Refill Social History Tobacco [...] daily. Daily Max: 200 mg 60 capsule 5 07/31/2022 documented in this encounter Miscellaneous Notes * Telephone Encounter - Vashti Grover RN - 07/31/2022 1128 EDT Request: pregabalin Last Visit: 06/01/2022 Next Visit: 11/01/2022 Ref Date: 06/01 100 mg bid Action: Escript as tabbed * Telephone Encounter - Angie Haley - 07/31/2022 1122 EDT Refill - pregabalin MICHELLE BILLINGSLEY documented in this encounter Plan of Treatment Upcoming Encounters Date Type Department Care Team (Late st Contact Info) Description 03/04/2025 14:00 EDT Telemedicine [facility] [address] [place] [address] Brayan Polk MD [address] [facility] [place] [phone] 07/14/2025 14:30 EDT Office Visit [facility] Cancer Center Hematology & Oncology - [address] [address] Evin Maria MD [address] [place] [address], [address] [place] [address] documented as of this encounter Visit Diagnoses Not on filedocumented in this encounter Discontinued Medications Medication Sig Discontinue Reason Start Date End Da te pregabalin (LYRICA) 100 mg capsule Take 1 capsule by mouth 2 times daily. Daily Max: 200 mg Reorder 03/28/2022 07/31/2022 documented as of this encounter Care Teams Engineering Operator Relationship Specialty Start Date End Date Romario Hairston MD [address], [address] [phone] PCP - General 07/06/20 documented as of this encounter
--- OUTSIDE RECORDS SUMMARY | 2024-12-03 15:54 | XMS_ITS | Encounter Summary ---
Author Organization [facility] Address [address] [place] [address] Care Team Providers Care Information Systems Security Manager Name Role Phone Romario Hairston MD Primary Care Provider +1- [phone] Encounter Details Date Type Department Care Team (Late st Contact Info) Description 04/28/2022 Lab Requisition [facility] Lab - Main [address] [phone] Anat Arnold MD [address] [place] [phone] Unknown Code Social History Tobacco Use Types Packs/Day Years [...] Contact Info) Description 03/04/2025 14:00 EDT Telemedicine [facility] Neurology Clinic [address] [place] [phone] Brayan Polk MD [address] [place] [address] [place] [address] 07/14/2025 14:30 EDT Office Visit [facility] Cancer Center Hematology & Oncology - [address] [phone] Evin Maria MD [address] [place] [address], [address] [place] [phone] documented as of this encounter Procedures Procedure Name Priority Date/Time Associated Diagnosis Comments UA SEDIMENT (CULTURE IF POS) Today 04/28/2022 19:00 EDT Unknown Code UA WITH REFLEX SEDIMENT (CULTURE IF POS) Today 04/28/2022 19:00 EDT Unknown Code BACTERIAL CULTURE, URINE Today 04/28/2022 19:00 EDT Unknown Code documented in this encounter Results * (ABNORMAL) BACTERIAL CULTURE, URINE (04/28/2022 19:00 EDT) Organism ID Greater than 100,000 CFU/ml Proteus mirabilis( A) VITEK SUSCEPTIBILITY 04/30/2022 7:41 EDT [facility] Comment: Cefazolin susceptibility results can be used to predict susceptibility results for the following oral cephalosporins when used for therapy of uncomplicated UTI's due to E.coli, K.pneumoniae and P.mirabilis: cefaclor, cefdinir, cefpodoxime, cefprozil, cefuroxime, cephalexin and loracarbef. ??Please note that only cefdinir, cefpodoxime, cefuroxime and cephalexin are on the [facility] inpatient formulary. Organism ID [id number] to 100,000 CFU/ml VITEK SUSCEPTIBILITY 04/30/2022 7:41 EDT [facility] Comment:Usual urogenital helen ra. Urine URINE SPECIMEN COLLECTION, CLEAN CATCH / Unknown 04/28/2022 19:00 EDT 04/28/2022 19:49 EDT Narrative Organism Antibiotic Method Susceptibility Proteus [...] tho xazole VITEK SUSCEPTIBILITY <=20 ug/mL: Susceptible Anat Arnold MD MICROBIOLOGY - GENERAL O RDERABLES Final Result Performing Organization Address [facility] Co de Phone Number [facility] [address] [place] [address] * (ABNORMAL) UA SEDIMENT (CULTURE IF POS) (04/28/2022 19:00 EDT) Urine RBC Count, Manual 3 - 10(A) 0 - 2, None Seen Cells/HPF 04/28/2022 19:49 EDT [facility] Urine WBC Count >50(A) 0 - 3, None Seen Cells/HPF 04/28/2022 19:49 EDT [facility] Urine Squamous Count, Manual Few(A) None Seen Cells/HPF 04/28/2022 19:49 EDT [facility] Urine Bacteria Count, Manual Many(A) None Seen Bacteria/ HPF 04/28/2022 19:49 EDT [facility] Urine Crystals Many Triple Phosphate Crystals(A) None Seen 04/28/2022 19:49 EDT [facility] Additional Findings Amorphous material present(A) None Seen 04/28/2022 19:49 EDT [facility] Urine URINE SPECIMEN COLLECTION, CLEAN CATCH / Unknown 04/28/2022 19:00 EDT 04/28/2022 19:28 EDT [facility] - 04/28/2022 19:49 EDT Urine Sediment Analysis results are unreliable on urines that are unrefrigerated for >2 hrs or refrigerated >8 hrs. us Anat Arnold MD URINALYSIS ORDERABLES Fi nal Result Performing Organization Address [facility]/ZIP Co de Phone Number [facility] [address] [place], [place] [phone] * (ABNORMAL) UA WITH REFLEX SEDIMENT (CULTURE IF POS) (04/28/2022 19:00 EDT) Color UA Yellow Colorless to Dark Yellow 04/28/2022 19:49 [facility] Clarity UA Slightly Cloudy(A) Clear 04/28/2022 19:49 [facility] Glucose UA Negative Negative 04/28/2022 19:49 [facility] Bilirubin UA Negative Negative 04/28/2022 19:49 [facility] Ketones UA Negative Negative 04/28/2022 19:49 [facility] Specific [place], Urine 1.010 1.001 - 1.035 04/28/2022 19:49 [facility] Blood UA 1+(A) Negative 04/28/2022 19:49 [facility] pH, UA 8.0 4.6 - 8.0 04/28/2022 19:49 [facility] Protein UA Trace(A) Negative 04/28/2022 19:49 [facility] Urobilinogen UA 0.2 0.2 , 1.0, Normal mg/dL 04/28/2022 19:49 [facility] Nitrite UA Positive(A) Negative 04/28/2022 19:49 [facility] Leukocyte Esterase UA 3+(A) Negative 04/28/2022 19:49 [facility] Urine URINE SPECIMEN COLLECTION, CLEAN CATCH / Unknown 04/28/2022 19:00 EDT 04/28/2022 19:28 EDT us Anat Arnold MD URINALYSIS ORDERABLES Fi nal Result [facility] [address] [place] [address] documented in this encounter Visit Diagnoses Diagnosis Unknown Code Erroneous [id number] DX documented in this encounter Additional Health Concerns Infection Onset Date Last Indicated Resolved Time R/O COVID-19 01/28/2024 01/28/2024 01/29/2024 0:27 EST documented as of this encounter Care Teams Information Systems Security Manager Relationship Specialty Start Date End Date Florance, Emilija O, MD [address] [place] [address] PCP - General 07/06/20 documented as of this encounter
--- OUTSIDE RECORDS SUMMARY | 2024-12-03 15:54 | XMS_ITS | Encounter Summary ---
Author Organization [facility] Address [address] [place] [address] Care Team Providers Care Section Hand Helper Name Role Phone Romario Hairston MD Primary Care Provider +1- [phone] Encounter Details Date Type Department Care Team (Latest Contact Info) Description 07/31/2022 Travel Social History Tobacco Use Types Packs/Day [...] 03/04/2025 14:00 EDT Telemedicine [facility] Neurology Clinic [address] [place] [phone] Brayan Polk MD [address] [place] [address] [place] [phone] 07/14/2025 14:30 EDT Office Visit [facility] Cancer Center Hematology & Oncology - [address] [phone] Evin Maria MD [address] [facility], Level [address] [place] [phone] documented as of this encounter Visit Diagnoses Not on filedocumented in this encounter Care Teams Section Hand Helper Relationship Specialty Start Date End Date Romario Hairston MD [address], [address] [phone] PCP - General 07/06/20 documented as of this encounter
--- OUTSIDE RECORDS SUMMARY | 2024-12-03 15:54 | XMS_ITS | Encounter Summary ---
Author Organization [facility] Address [address] [place] [address] Care Team Providers Care Pleating Supervisor Name Role Phone Romario Hairston MD Primary Care Provider [phone]- [phone] Encounter Details Date Type Department Care Team (Late st Contact Info) Description 08/01/2022 16:25 EDT - 08/01/2022 18:27 EDT Emergency [facility] system Emergency Department [address] [place] [address] Eleazar Ozuna MD [address] [place] [address] Acute cystitis without hematuria (Primary Dx) Discharge Disposition: Home or Self Care Social [...] 18:22 EDT documented as of this encounter Last Filed Vital Signs Vital Sign Reading Time Taken Comments Blood Pressure 137/87 08/01/2022 1800 EDT Pulse - - Temperature 36.7 ??C (98 ??F) 08/01/2022 1630 EDT Respiratory Rate 17 08/01/2022 1800 EDT Oxygen Saturation 100% 08/01/2022 1800 EDT Inhaled Oxygen Concentration - - Weight 63.9 kg (140 lb 14 oz) 08/01/2022 1629 ED T Height - - Body Mass Index 22.06 03/07/2022 1302 EDT documented in this encounter Functional Status [...] * Discharge Instructions* Eleazar Ozuna MD - 08/01/2022 18:04 EDT Continue to take Macrobid as already prescribed. Take medications as prescribed. Encourage plenty of fluids. Follow-up with PCP if symptoms persist Return for fever, worsening symptoms or any other concerns. documented [...] by mouth every 6 hours. 07/14/2020 4 amoxicillin-clavulan ate (AUGMENTIN) 875-125 mg per tablet Take 1 Tablet by mouth 2 times daily for 7 days. 14 Tablet 08/03/2022 2 aspirin chewable 81 mg tablet Take 1 Tablet by mouth daily. 3 buPROPion (WELLBUTRIN SR) 200 mg SR tablet Take 1 Tablet by mouth daily. 30 Tablet 1 03/29/2022 4 cholecalciferol, Vitamin D3, 25 mcg (1,000 unit) tablet Take 1 Tablet by mouth daily. Reported by caregiver 4 dronabinoL (MARINOL) 2.5 mg capsule Take 1 capsule by mouth 2 times daily before lunch and dinner. Daily Max: 5 mg 60 capsule 1 03/28/2022 4 ELIQUIS 2.5 mg tablet TAKE 1 TABLET BY MOUTH TWICE DAILY 60 Tablet 6 11/07/2021 2 GENTEAL TEARS MODERATE 0.1-0.3-0.2 % drops INSTILL [...] mouth 2 times daily. 60 Tablet 07/23/2022 2 nitrofurantoin, macrocrystal-monohyd rate, (MACROBID) 100 mg capsule Take 1 capsule by mouth 2 times daily for 5 days. 10 capsule 07/31/2022 2 ondansetron (ZOFRAN-ODT) 4 mg disintegrating tablet Take 1 Tablet by mouth every 8 hours as needed for Nausea. 10 Tablet 02/25/2022 4 polyethylene glycol (MIRALAX) 17 gram/dose powder Take 17 g by mouth daily. 510 g 03/31/2020 4 pregabalin (LYRICA) 100 mg capsule Take 1 capsule by mouth 2 times daily. Daily Max: 200 mg 60 capsule 5 07/31/2022 3 propRANolol (INDERAL) 10 mg tablet TK 1 T PO Q 8 H OES PRN 08/09/2020 3 senna (SENOKOT) 8.6 mg tablet Take 1 Tab by mouth 2 times daily as needed (Constipation) . 03/30/2020 4 documented as of this encounter Ordered Prescriptions Prescription Sig Dispense Quantity Refills Last Filled Start Date End Date amoxicillin-clavul anate (AUGMENTIN) 875-125 mg per tablet Take 1 Tablet by mouth 2 times daily for 7 days. 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 Patient wasseen in the emergency department the day prior for the same complaint at that time had a CT and labs obtained. CT of the brain showed no acute abnormality. Significant left-sided temporal parietal encephalomalacia was noted. Labs were unremarkable except for UA which was consistent with a UTI and started on Macrobid. Patient has shown similar symptoms with UTI in the past. Urine culture shows gram-negative bacilli. Sensitivities pending. Patient has had 2 doses of Macrobid. Patient has not gotten her pregabalin for few days prior to last night due to issues with the pharmacy. Patient's care provider is concerned that she is can have a seizure. Patient is due to have her medications in 2 hours. Labs unremarkable. No electrolyte imbalance. WBC and CRP both within normal limits. No signs of infectious or inflammatory process. Patient is only taken 2 doses of Macrobid. Urine culture sensitivity still pending. Recommend patient continue on antibiotics Patient is alert and oriented and speaking coherently. Do not feel repeat imaging is indicated at this time as patient did have a CT head within the last 24 hours. Fluids given. Discussed with patient the importance of maintaining physical fitness. Patient is comfortable with plan to be discharged home with cargiver and will follow up with PCP as needed. Return precautions provided. Final diagnoses: Acute cystitis without hematuria Data Reviewed this visit No current facility-administered medications for this encounter. Current Outpatient Medications Medication Sig Dispense Refill [...] to twice a day. 60 g 1 ??? L.acid/L.casei/B.bif/B.boyd/FOS (PROBIOTIC BLEND ORAL) Take by mouth. ??? lactulose (CHRONULAC) 10 gram/15 mL solution TAKE 15 ML BY MOUTH EVERY DAY NEEDED ??? melatonin 5 mg tablet Take 5 mg by mouth at bedtime. ??? methocarbamoL (ROBAXIN) 500 mg tablet Take 1 Tablet by mouth 2 times daily. 60 Tablet 0 ??? metoclopramide HCl (REGLAN) 5 mg tablet Take 1 Tablet by mouth 3 times daily before meals. 90 Tablet 0 ??? nitrofurantoin, macrocrystal-monohydrate, (MACROBID) 100 mg capsule Take 1 capsule by mouth 2 times daily for 5 days. 10 capsule 0 ??? omeprazole (PRILOSEC) 20 mg capsule TAKE 1 CAPSULE BY MOUTH EVERY DAY 30 MINUTES BEFORE BREAKFAST ??? ondansetron (ZOFRAN-ODT) 4 mg disintegrating tablet Take 1 Tablet by mouth every 8 hours as needed for Nausea. 10 Tablet 0 ??? polyethylene glycol (MIRALAX) 17 gram/dose powder Take 17 g by mouth daily. 510 g 0 ??? Prazosin (MINIPRESS) 1 mg capsule TK 1 C PO QD HS ??? pregabalin (LYRICA) 100 mg capsule Take 1 capsule by mouth 2 times daily. Daily Max: 200 mg 60 capsule 5 ??? propRANolol (INDERAL) 10 mg tablet TK 1 T PO Q 8 H OES PRN ??? senna (SENOKOT) 8.6 mg tablet Take 1 Tab by mouth 2 times daily as needed (Constipation). History of Present Illness HPI Ynes White is a 52 y.o. female with a past history of left temporal pleural parietal stroke secondary to venous sinus thrombosis returns to [place] apartment today after having difficulty with speech. Patient was seen in the emergency department the day prior for the same complaint at that time had a CT and labs obtained. CT of the brain showed no acute abnormality. Significant left-sided temporal parietal encephalomalacia was noted. Labs were unremarkable except for UA which was consistent with a UTI and started on Macrobid. Patient has shown similar symptoms with UTI in the past. Urineculture shows gram- negative bacilli. Sensitivities pending. Patient has had 2 doses of Macrobid. Patient has not gotten her pregabalin for few days prior to last night due to issues with the pharmacy. Patient's care provider is concerned that she is can have a seizure. Patient is due to have her medications 2 hours. Patient has no complaints. No abdominal pain. No fevers or chills. Review of Symptoms ROS A 10-point review of systems was performed. The historian answered negative to all questions with the exceptions of those explicitly detailed as positives in the HPI. Pertinent negatives are also explicitly stated. Physical Exam Vital Signs Vitals Reassessment?: Yes Temp: 36.7 ??C (98 ??F) Temp src: Oral Heart Rate: 73 BPM Resp: 17 SpO2: 100 % Pulse From Oximetry: 76 BPM BP: 137/87 BP MAP: 103 mm Hg Nursing notes and vital signs were reviewed. Physical Exam Vitals and nursing note reviewed. Constitutional: General: She is not in acute distress. Appearance: Normal appearance. She is normal weight. She is not ill-appearing or diaphoretic. HENT: Head: Normocephalic and atraumatic. Right Ear: External ear normal. Left Ear: External ear normal. Nose: Nose normal. Mouth/Throat: Mouth: Mucous membranes are moist. Eyes: Extraocular Movements: Extraocular movements intact. Pupils: Pupils are equal, round, and reactive to light. Cardiovascular: Rate and Rhythm: Normal rate and regular rhythm. Heart sounds: Normal heart sounds. Pulmonary: Effort: Pulmonary effort is normal. Breath sounds: Normal breath sounds. Abdominal: Palpations: Abdomen is soft. There is no mass. Tenderness: There is no abdominal tenderness. Musculoskeletal: General: No swelling or deformity. Normal range of motion. Cervical back: Normal range of motion and neck supple. Skin: General: Skin is warm and dry. Neurological: Mental Status: She is alert. Mental status is at baseline. Comments: Patient is oriented to person and place. Patient with intermittent word finding difficulties but is able to discuss her recurrent symptoms and expressed concern regarding her physical activity. Psychiatric: Mood and Affect: Mood normal. Behavior: Behavior normal. Procedures Procedures Data Interpretation/Results Laboratory results independently reviewed, significant for: Labs Reviewed COMPLETE BLOOD COUNT AND DIFFERENTIAL - Abnormal Result Value Status WBC 4.41 Final RBC 4.81 Final Hemoglobin 12.4 Final HCT 39.0 Final MCV 81 Final MCH 25.8 (*) Final Hypochromia 1+ Final MCHC 31.8 (*) Final RDW-CV 16.1 (*) Final RDW-SD 47.6 Final Anisocytosis Final PLT 163 Final MPV 11.6 Final Neutrophils 64.1 Final Lymphocytes 27.0 Final Monocytes 8.2 Final Eosinophils 0.0 Final Basophils 0.5 Final Immature Grans 0.2 Final Absolute Neutrophils 2.83 Final Absolute Lymphocytes 1.19 Final Absolute Monocytes 0.36 Final Absolute Eosinophils 0.00 (*) Final Absolute Basophils 0.02 Final Absolute Immature Grans 0.01 Final Type of Differential: Auto Final COMPREHENSIVE METABOLIC PANEL (CMP) - Normal Sodium 140 Final Potassium 4.9 Final Chloride 103 Final CO2 Total 25 Final Glucose 94 Final BUN 13 Final Creatinine 0.83 Final eGFR 84 Final Total Protein 7.4 Final Albumin 4.6 Final Alkaline Phosphatase 124 Final AST 30 Final ALT 29 Final Bilirubin, Total 0.6 Final Calcium 9.9 Final Albumin/Globulin Ratio 1.6 Final Anion Gap 12 Final C REACTIVE PROTEIN - Normal C-Reactive Protein <5.0 Final HOLD SST Hold Hold Final HOLD LAVENDER TOP Hold Hold Final HOLD GREEN TOP Hold Hold Final Imaging obtained was reviewed and independently interpreted: No orders to display Disposition Discharged Disposition decisions were made weighing risks and benefits of hospitalization vs. outpatient treatment, the risk for further decompensation, and the patient???s wishes. - If discharged: the patient was stable, improved, or requested discharge. Prior to discharge my usual and customary return precautions were reviewed with the patient and/or family. This included follow-up instructions and reasons to return to the Emergency Department if condition worsens, does notimprove as expected, or other new concerns arise. - If admitted: the patient???s condition was severe enough to require additional inpatient evaluation and treatment, or the patient was at risk of sudden decompensation. * Estela Cooley RN - 08/01/2022 1701 EDT Significant other at bedside. documented in this encounter Plan of Treatment Upcoming Encounters Date Type Department Care Team (Late st Contact Info) Description 03/04/2025 14:00 EDT Telemedicine Health system Neurology Clinic [address] [place] [address] Brayan Polk MD [address] [facility] [address] [place] [address] 07/14/2025 14:30 EDT Office Visit [facility] Hematology & Oncology - [facility] [address], [place] [id number] Evin Maria MD [address] [facility], [facility], [address] [place] [address] documented as of this encounter Procedures Procedure Name Priority Date/Time Associated Diagnosis Comments HOLD SST Routine 08/01/2022 16:48 EDT HOLD LAVENDER TOP Routine 08/01/2022 16: 48 EDT HOLD GREEN TOP Routine 08/01/2022 16:48 EDT COMPLETE BLOOD COUNT AND DIFFERENTIAL STAT Add-on 08/01/2022 16:48 EDT C REACTIVE PROTEIN STAT Add-on 08/01/2022 16 :48 EDT COMPREHENSIVE METABOLIC PANEL (CMP) STAT Add-on 08/01/2022 16:48 EDT documented in this encounter Results * C REACTIVE PROTEIN (08/01/2022 16:48 EDT) C-Reactive Protein <5.0 <10.0 mg/L 08/01/2022 17:29 EDT [facility] Blood VENOUS BLOOD / Unknown Venipuncture / Unknown 08/01/2022 16:48 EDT 08/01/2022 16:51 EDT us Eleazar Ozuna MD CHEMISTRY & BLOOD GAS ORDERABLES Final Result [facility] [address] [place] [address] * COMPREHENSIVE METABOLIC PANEL (CMP) (08/01/2022 16:48 EDT) Sodium 140 136 - 145 mmol/L 08/01/2022 17:29 [facility] Potassium 4.9 3.5 - 5.0 mmol/L 08/01/2022 17:29 [facility] Chloride 103 96 - 110 mmol/L 08/01/2022 17:29 [facility] CO2 Total 25 22 - 32 mmol/L 08/01/2022 17:29 [facility] Glucose 94 70 - 100 mg/dL 08/01/2022 17:29 [facility] BUN 13 10 - 26 mg/dL 08/01/2022 17:29 [facility] Creatinine 0.83 0.52 - 1.04 mg/dL 08/01/2022 17:29 [facility] eGFR 84 >60 mL/min/1.7 3m2 08/01/2022 17:29 [facility] Total Protein 7.4 6.3 - 8.2 g/dL 08/01/2022 17:29 [facility] Albumin 4.6 3.4 - 4.9 g/dL 08/01/2022 17:29 [facility] Alkaline Phosphatase 124 38 - 126 U/L 08/01/2022 17:29 [facility] AST 30 15 - 46 U/L 08/01/2022 17:29 [facility] ALT 29 <35 U/L 08/01/2022 17:29 [facility] Bilirubin, Total 0.6 <1.4 mg/dL 08/01/20 17:29 [facility] Calcium 9.9 8.5 - 10.5 mg/dL 08/01/2022 17:29 [facility] Albumin/Globulin Ratio 1.6 1.0 - 2.5 08/01/2022 17:29 [facility] Anion Gap 12 5 - 14 08/01/2022 17:29 [facility] Blood VENOUS BLOOD / Unknown Venipuncture / Unknown 08/01/2022 16:48 EDT 08/01/2022 16:51 EDT us Eleazar Ozuna MD CHEMISTRY & BLOOD GAS ORDERABLES Final Result [facility] [address] [place] [address] * (ABNORMAL) COMPLETE BLOOD COUNT AND DIFFERENTIAL (08/01/2022 16:48 EDT) WBC 4.41 4.00 - 12.40 K/cmm 08/01/2022 17:16 [facility] RBC 4.81 3.86 - 5.04 M/cmm 08/01/2022 17:16 [facility] Hemoglobin 12.4 11.6 - 15.2 gm/dL 08/01/2022 17:16 [facility] HCT 39.0 34.9 - 44.4 % 08/01/2022 17:16 [facility] MCV 81 81 - 98 fl 08/01/2022 17:16 [facility] MCH 25.8(L) 26.7 - 33.3 pg 08/01/2022 17:16 [facility] Hypochromia 1+ 08/01/2022 17:16 [facility] MCHC 31.8(L) 32.1 - 35.9 gm/dL 08/01/2022 17:16 [facility] RDW-CV 16.1(H) <14.7 % 08/01/2022 17:16 [facility] RDW-SD 47.6 <50.4 fl 08/01/2022 17:16 [facility] Anisocytosis 08/01/2022 17:16 [facility] PLT 163 141 - 377 K/cmm 08/01/2022 17:16 [facility] MPV 11.6 9.5 - 12.7 fl 08/01/2022 17:16 [facility] % Neutrophils 64.1 % 08/01/2022 17:16 [facility] % Lymphocytes 27.0 % 08/01/2022 17:16 [facility] % Monocytes 8.2 % 08/01/2022 17:16 [facility] % Eosinophils 0.0 % 08/01/2022 17:16 [facility] % Basophils 0.5 % 08/01/2022 17:16 [facility] % Immature Grans 0.2 % 08/01/20 17:16 [facility] Absolute Neutrophils 2.83 2.20 - 8.85 K/cmm 08/01/2022 17:16 [facility] Absolute Lymphocytes 1.19 1.09 - 3.30 K/cmm 08/01/2022 17:16 [facility] Absolute Monocytes 0.36 0.10 - 0.80 K/cmm 08/01/2022 17:16 [facility] Absolute Eosinophils 0.00(L) 0.03 - 0.61 K/cmm 08/01/2022 17:16 [facility] ABS Basophils 0.02 0.01 - 0.11 K/cmm 08/01/2022 17:16 [facility] Absolute Immature Grans 0.01 0.00 - 0.06 K/cmm 08/01/2022 17:16 [facility] Type of Differential: Auto 08/01/2022 17:16 [facility] Blood VENOUS BLOOD / Unknown Venipuncture / Unknown 08/01/2022 16:48 EDT 08/01/2022 16:51 EDT us Eleazar Ozuna MD PACKAGES & DNA PROBE O RDERABLES Final Result [facility] [address] [place] [address] * HOLD GREEN TOP (08/01/2022 16:48 EDT) Hold Hold 08/01/2022 19:45 EDT [facility] Blood VENOUS BLOOD / Unknown Venipuncture / Unknown 08/01/2022 16:48 EDT 08/01/2022 18:34 EDT us Eleazar Ozuna MD LAB INFO SERVICE AND S UPPORT & PHONE RESULT Final Result Performing Organization Address [facility]/ZIP Co de Phone Number [facility] [address] [place] [address] * HOLD LAVENDER TOP (08/01/2022 16:48 EDT) Hold Hold 08/01/2022 18:01 EDT [facility] Blood VENOUS BLOOD / Unknown Venipuncture / Unknown 08/01/2022 16:48 EDT 08/01/2022 16:51 EDT us Eleazar Ozuna MD LAB INFO SERVICE AND S UPPORT & PHONE RESULT Final Result Performing Organization Address [facility]/ZIP Co de Phone Number [facility] [address] [place] [address] * HOLD [facility] (08/01/2022 16:48 EDT) Hold Hold 08/01/2022 18:01 EDT [facility] Blood VENOUS BLOOD / Unknown Venipuncture / Unknown 08/01/2022 16:48 EDT 08/01/2022 16:51 EDT us Eleazar Ozuna MD LAB INFO SERVICE AND S UPPORT & PHONE RESULT Final Result Performing Organization Address [facility] Co de Phone Number [facility] [address] [place] [address] documented in this encounter Visit Diagnoses Diagnosis Acute cystitis without hematuria- Primary Acute cystitis documented in this encounter Administered Medications Inactive Administered Medications - up to 3 most recent administrations Medication Order MAR Action Action Date Dose Rate Site sodium chloride 0.9 % BOLUS 500 mL 500 mL, intravenous, NOW X1, 1 dose, On Sat08/01/22 at 1730, STAT New Bag 08/01/2022 17:26 EDT 500 mL documented in this encounter Discontinued Medications Medication Sig Discontinue Reason Start Date End Da te nitrofurantoin, macrocrystal-monohydrate , (MACROBID) 100 mg capsule Take 1 capsule by mouth 2 times daily for 5 days. Alternate therapy 07/31/2022 08/03/2022 documented as of this encounter Active and Recently Administered Medications Times are shown in EDT. Scheduled Medication Order 07/30/2022 07/31/2022 08/01/2022 sodium chloride 0.9 % BOLUS 500 mL (COMPLETED) 500 mL, intravenous, NOW X1, 1 dose, On Sat08/01/22 at 1730, STAT 1726 (New Bag - Prov ider: Estela Cooley RN)1800 (Completed - Provider: Estela Cooley RN) documented in this encounter Orders Medications Ordered That Babak ht Not Have Been Administered Count Last Ordered Date First Ordered Date sodium chloride 0.9 % BOLUS 500 mL 1 2021 documented in this encounter Care Teams Pleating Supervisor Relationship Specialty Start Date End Date Romario Hairston MD [address] [place], [place] [address] PCP - General 07/06/20 documented as of this encounter
--- OUTSIDE RECORDS SUMMARY | 2024-12-03 15:54 | XMS_ITS | Encounter Summary ---
Author Organization [facility] Address [address] [place] [address] Care Team Providers Care Vendor Relationship Manager Name Role Phone Romario Hairston MD Primary Care Provider [phone]- [phone] Encounter Details Date Type Department Care Team (Latest Contact Info) Description 07/16/2022 Plan of Care Documentation [facility] [address] [place] [address] Social History Tobacco Use Types Packs/Day Years [...] Progress Notes * Sharmila Aden, OT - 07/16/2022 0758 EDT Outpatient Rehab Plan of Care Therapy Diagnosis: decreased strength, vision, sensation in BUEs, decreased FMC, GMC, decreased memory, attention, cognition, decreased ADLs, IADLs due to evacuation of cerebral venous thrombosis Problem List: Impaired ADLs, Impaired instrumental ADLs, Decreased strength, Decreased sensation, Limited activity tolerance, Impaired balance, Decreased coordination, Impaired vision, Impaired cognition and Impaired memory Assessment: Pt is a 52 year old female presenting to occupational therapy services with reports of decreased strength, vision, sensation, coordination, memory, and balance impeding her ability to perform dressing, bathing, feeding, reading, writing, functional ambulation and functional transfers. As noted in objective measures, pt with decreased sensation in B/l hands, decreased FMC with R<L, decreased pinch strength. Pt with noted right homonymous hemianopsia and expressive aphasia. Pt utilizing for functional mobility and has tub bench, grab bars at home with assistance from friend Ever. Pt is scheduled with both [facility] and PT for evaluations. Instructed pt in HEP for shopfitter and pinch strengthening. Provided pt with visual chart to maria esther when she performs exercises. Pt able to demonstrate back with max visual cues. Pt will benefit from continued skilled occupational therapy services inorder to address underlying deficits, develop and instruct in exercise program, and increase functional independence to highest possible level. ?? Equipment Needed: None currently Barriers to Learning: cognitive deficits Potential Barriers to Progress: Cognitive Impairments and Medical condition ?? Response to Evaluation: Well Rehabilitation Potential: Motivation/Commitment to Therapy: Good Rehabilitation Potential: Fair ?? Short-Term Goals Timeframe: 4 visits Goals: 1) Pt will initiate HEP. 2) Pt will be able to fasten buttons with Mod I utilizing adaptive strategies as needed. ?? Long-Term Goals Timeframe: 10 visits Goals: 1) Pt will be able to write with Min A utilizing adaptive strategies as needed. 2) Pt will demonstrate improved FMC as evidenced by improved 9 hole peg test of at least 7 seconds in order to perform feeding with increased independence 3) Pt will be able to perform simple meal prep with Mod I in order to decrease caregiver burden. ? PLAN Medical Necessity: Therapy intervention is indicated in order to return to a premorbid level of function or significantly improve current level of function. Occupational Therapy is recommended for: Treatment Frequency/ Duration: 1x week for up to 10 visits Therapy Treatment to include: 00498 - Therapeutic Exercise, 52393 - Neuromuscular Re-education, 17677 - Therapeutic Activity and 91008 - Self Care/Home Management Recommended Consults: None at this time, pt scheduled with PT/[facility] Development of Plan of Care: Patient participated in development of plan of care today. ?? Plan for next visit: FMC/GMC, feeding, writing, fasteners, review HEP, simple meal prep ?? The patient has been instructed to contact our clinic if any questions or problems should arise ATTENDING PHYSICIAN: Medicare certification needed. Your signature indicates you approve the therapy goals and plan of care outlined on this document dated 07/13/2022. Thank you! Attending Physician Signature Date Sharmila Aden OT 07/16/2022 7:58 documented in this encounter Plan of Treatment Upcoming Encounters Date Type Department Care Team (Late st Contact Info) Description 03/04/2025 14:00 EDT Telemedicine [facility] Neurology Clinic [address] [place] [address] Brayan Polk MD [address] [facility] [address] [place] [id number] 07/14/2025 14:30 EDT Office Visit [facility] Hematology & Oncology - [address] [phone] Evin Maria MD [address] [facility], [address] [place] [address] documented as of this encounter Visit Diagnoses Not on filedocumented in this encounter Care Teams Vendor Relationship Manager Relationship Specialty Start Date End Date Romario Hairston MD [address], [address] [id number] PCP - General 07/06/20 documented as of this encounter
--- OUTSIDE RECORDS SUMMARY | 2024-12-03 15:54 | XMS_ITS | Encounter Summary ---
Author Organization [facility] Address [address] [place] [address] Care Team Providers Care Manager In Home Name Role Phone Romario Hairston MD Primary Care Provider [phone] Reason for Visit * Reason Comments Pain * Referral (Routine) - Authorization Not Required Specialty Diagnoses / Procedures Referred By Mitch pruett Referred To Contact Orthopedic Surgery Diagnoses Pain in left foot Pain in right foot [facility] [address] [place] [address] Phone: tel: fax: Referral ID Status Reason Start Date Expiration Date Visits Requested Visits Authorized [id number] Authorization Not Required 1 1 Encounter Details Date Type Department Care Team (Late st Contact Info) Description 07/23/2022 14:30 EDT Office Visit [facility] [address], [address] [place], [place] [id number] Emily Dunn T, [facility] [address] [facility] [address] [place] [address] Left foot drop (Primary Dx); Pain in left foot; Onychomycosis; Right foot pain; Onychocryptosis; Tinea pedis of both feet Social History Tobacco Use Types Packs/Day Years [...] Refills Last Filled Start Date End Date ketoconazole (NIZORAL) 2 % cream Apply to affected toenails once to twice a day. 60 g 1 07/23/2022 4 documented in this encounter Progress Notes * Sujatha Orr MA - 07/23/2022 1430 EDT Patient presents in clinic today for evaluation and treatment of her bilateral foot pain and onychomycosis. * Emily Dunn, DPM - 07/23/2022 4250 EDT Ynes White is being seen as a consultation from . No ref. provider found. Chief Complaint Patient presents with ??? Left Foot - Pain The primary encounter diagnosis was Left foot drop. Diagnoses of Pain in left foot, Onychomycosis, Right foot pain, Onychocryptosis, and Tinea pedis of both feet were also pertinent to this visit. HPI 52-year-old female with history of left-sided nontraumatic intracerebral hemorrhage and stroke complications presents today with chief complaint of painful bilateral great toenails. Patient has difficulty with grasping objects in her hands and is unable to trim her nails which have over time incurvated along the medial lateral borders of both great toes. She has also noticed increased thickness of the nails with painful subungual debris. This causes more pain in both of her feet and it is noticed that she walks on the metatarsals and toes rather than on her full foot due to complications fromher stroke. She is currently in physical therapy and working on regaining her strength in both legs with left greater than right. Patient Active Problem List Diagnosis ??? Back pain ??? Chronic low back pain ??? Encounter for insertion or removal of intrauterine contraceptive device ??? Nicotine dependence, unspecified, uncomplicated ??? Perimenopausal ??? Tobacco abuse ??? Left-sided nontraumatic intracerebral hemorrhage (HCC) ??? Primary hypercoagulable state (HCC-CMS) (HCC) ??? Focal epilepsy (HCC-CMS) (HCC) ??? 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 Other specified postprocedural states ??? Paresthesia of skin ??? Procedure and treatment not carried out for other reasons ??? Solitary cyst of right breast ??? Solitary pulmonary nodule ??? Tremor, unspecified ??? Severe protein-calorie malnutrition (HCC-CMS) (HCC) ??? Neurogenic bladder as late effect of cerebrovascular accident (CVA) Past Medical History: Diagnosis Date ??? 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 Exercise involving walking flat surfaces ??? History of cranial surgery 07/12/2020 ??? History of general anesthesia ??? Left-sided nontraumatic intracerebral hemorrhage (HCC) 03/02/2020 Status post decompressive hemicraniectomy ??? Memory disorder ??? Shoulder joint pain right History reviewed. No pertinent surgical history. Social History Tobacco Use ??? Smoking status: Current Every Day Smoker Packs/day: 0.25 Years: 15.00 Pack years: 3.75 ??? Smokeless tobacco: Never Used Substance Use Topics ??? Alcohol use: Yes Family History Problem Relation Age of Onset ??? Cancer Mother 72 Liver ??? Cancer Father 79 mesothelioma ??? Cancer Maternal Grandmother 80 Current Outpatient Medications Medication Sig Dispense Refill [...] No current facility-administered medications for this visit. Allergies Allergen Reactions ??? Citalopram Other reaction(s): increased anxiety ??? Duloxetine Other reaction(s): increased anxiety ??? Gabapentin ??? Levetiracetam Anxiety ??? Pregabalin Other reaction(s): dizziness ??? Trazodone ??? Zolpidem Other reaction(s): sleep walking with over 5 mg Review of Systems Musculoskeletal: Positive for arthralgias and gait problem. Skin: Positive for rash. Neurological: Positive for weakness and numbness. Physical Exam bilateral medial and lateral incurvated borders with positive yellow-white subungual debris that is painful with 6 mm of thickness of the left great toe and 5 mm of thickness of the right great toe. Some mild discoloration to the dorsal aspect of second and third digits with incurvated borders of bilateral second digits along the medial aspect. Some mild yellow discoloration noted of the skin was dry scaly plaques left second third fourth toes. Ortho Exam positive bilateral lower extremity weakness with 3 out of 5 MMT lateral musculature leftfoot, Neurologic Exam decreased protective sensation via 10g monofilament Vascular Exam: DP/PT 2/4 palpable pulses bilateral, positive capillary refill time < 3 secs Bilaterally, positive pedal hair, no varicosities, no telangiectasias, negative venous stasis, negative rubor of dependency Assessment/Plan: 1. Left foot drop Discussed AFO after she regains some more strength and flexibility in her left leg after physical therapy. 2. Onychomycosis 3. Left foot pain 4. Right foot pain Mechanical and electrical debridement of mycotic toenails was performed, and the toenails were reduced to as normal a thickness and length that patient tolerance would allow. This was performed on bilateral 1-5 nails. 5. Onychocryptosis Verbal consent obtained and slant back procedure performed to debride ingrown nail borders. 6. Tinea pedis of both feet RX for Ketoconazole 2% cream apply to both feet/toes/ toenails twice a day. Follow up in 4 months. Emily Dunn DPM, [facility] [place], [place] documented in this encounter Plan of Treatment Upcoming Encounters Date Type Department Care Team (Late st Contact Info) Description 03/04/2025 14:00 EDT Telemedicine [facility] [address] [place] [id number] Brayan Polk MD [address] [place] [address]- [address] [place] [address] 07/14/2025 14:30 EDT Office Visit [facility] - [address] [address] Evin Maria MD [address] [place] [address], [address] [place] [address] documented as of this encounter Visit Diagnoses Diagnosis Left foot drop- Primary Other acquired deformity of ankle and foot Pain in left foot Pain in limb Onychomycosis Dermatophytosis of nail Right foot pain Pain in limb Onychocryptosis Ingrowing nail Tinea pedis of both feet documented in this encounter Care Teams Manager In Home Relationship Specialty Start Date End Date Romario Hairston MD [address], [address] [id number] PCP - General 07/06/20 documented as of this encounter
--- OUTSIDE RECORDS SUMMARY | 2024-12-03 15:54 | XMS_ITS | Encounter Summary ---
Author Organization [facility] Address [address] [place] [address] Care Team Providers Care Hog Raiser Name Role Phone Romario Hairston MD Primary Care Provider [phone]- [phone] Reason for Visit * Reason Comments Dysarthria pt's caregiver hoyt d EMS w/concern for changes to speech that can precipitate a seizure event. Pt has hx of TBI, poor historian. No seizure activity noted by EMS fishing captain. Pt denies any pain, no complaints at this time. in NAD, VSS. expressive aphasia at baseline Encounter Details Date Type Department Care Team (Late st Contact Info) Description 07/31/2022 18:07 EDT - 07/31/2022 20:35 EDT Emergency [facility] Emergency Department [address] [place] [address] Derrick Gaytan MD [address] [place] [address] Urinary tract infection without hematuria, site unspecified (Primary Dx) Discharge Disposition: Home or Self [...] In the last 10 days, have yo madiha been in contact with someone who was confirmed or suspected to have Coronavirus/COVID-19? Unable to assess 07/31/2022 18:22 EDT documented as of this encounter Last Filed Vital Signs Vital Sign Reading Time Taken Comments Blood Pressure 130/82 07/31/20221999 EDT Pulse - - Temperature 36.7 ??C (98.1 ??F) 07/31/2022 1809 EDT Respiratory Rate 17 07/31/20221999 EDT Oxygen Saturation 98% 07/31/20221999 EDT Inhaled Oxygen Concentration - - Weight - [...] this encounter Discharge Instructions * Discharge Instructions* Derrick Gaytan MD - 07/31/2022 20:17 EDT As discussed you do have evidence of a urinary tract infection. It is possible that this is caused a worsening of your old stroke symptoms. Some of your symptoms today could also be from the loss of the pregabalin. Please take the nitrofurantoin twice a day as prescribed. I have given you enough to get you through to your pharmacy opens on . Continue with the pregabalin. Return to the ER for any worsening symptoms. Otherwise follow-up with your primary and neurologist as needed. documented in this encounter Medications at Time [...] Refills Last Filled Start Date End Date nitrofurantoin, macrocrystal-monoh ydrate, (MACROBID) 100 mg capsule Take 1 capsule by mouth 2 times daily for 5 days. 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 CT of the brain has returned without acute abnormality. She has 6 significant left sided temporal parietal encephalomalacia. Blood work is reassuring no evidence of metabolic abnormality. Unremarkable CBC. Her urine however has returned suggestive of infection with nitrites 11-50 whites moderate bacteria and only a few squames. Her caregiver Ever reports that in the past when she has had a UTI shehas gotten particularly ill and has had recrudescence of her strokelike symptoms which I suspect iswhat is going on today. Pierre is however able to confirm with me that currently she is completely at her baseline in regards toher speech and general appearance. He additionally reports concerns about her being off of her pregabalin for the last 3 to 4 days. He was just able to get some pills to get him through until mid week. They are having difficulties with the pharmacy as the pharmacy has been understaffed and closed irregularly. He believes the pharmacy is going to be closed tomorrow and will be open the day after. As such I have given enough nitrofurantoin to get him through until then. Patient will be discharged home to follow-up as needed or return for worsening. Final diagnoses: Urinary tract infection without hematuria, site unspecified Disposition: Discharged Chief complaint: Speech difficulty HPI Ynes White is a 52 y.o. female truwi-rdjb-jezfnexn with a history of intracerebral hemorrhagein January 2020 secondary to venous sinus thrombosis. Patient has been recovering since that time andcontinues with extensive rehab. She is anticoagulated on Xarelto. She comes in today initially by herself brought by a friend. It appears that she is having more difficulty with her speech. Patient has a hard time explaining exactly why she is here and how long its been going on. When I ask questions she starts answering and then often says that she cannot and starts spelling words or counting numbers. At other times she is able to follow commands and answer questions completely appropriately. He appears to also describes some tingling in the right arm but it is unclear if this is new or old. She denies a headache. She denies nausea. She does have some dizziness but cannot further describe it. She states that she is able to walk but needs help and appears to describe using a walker. She denies any recent falls. Patient tells me that her care management assistant Ever will be here shortly. Review her records show multiple complications since her original hemorrhage. She has had intermittent focal seizures. She was hospitalized for failure to thrive at the end of March. She is also had hyponatremia. Sometime after arrival her caregiver Ever has arrived. He states that she is currently acting at [facility]. She did have more difficulties with her speech earlier this evening just before she got here. This has happened in the past. He is concerned it may be due to the fact that she ran out of her pregabalin and had difficulty getting a refill as the pharmacy was closed. He was just able to getfew pills this evening. He is otherwise not noticed any other changes in her behavior. She has not had any fevers. She has had UTIs in the past but has not complained of any urinary symptoms recently. He does report that the symptoms that she has had today have come and gone in the past as well. History was provided by: Patient Patient's pertinent PMH, FH, SH were reviewed and edited as necessary. ROS Pt unable to complete review of systems due to dysarthria and intermittent aphasia Physical Exam BP 130/82 Temp 36.7 ??C (98.1 ??F) Resp 17 SpO2 98% A medical screening exam was performed. Physical Exam Nursing notes and vital signs were reviewed. Constitutional: Well appearing in no acute distress Head: atraumatic. Normocephalic. Eyes: Pupils equal and reactive to light, no scleral icterus ENT: Moist oral mucosa without apparent lesions.external ears unremarkable. Neck: supple with Full ROM, no cervical LAD. No carotid bruits. Heart: RRR without MRG Lungs: No respiratory distress. Clear to auscultation bilaterally. Abdomen: Soft NT/ND. Normal Bowel sounds. No hepato-splenomegally. Back: no CVA tenderness Skin: No overt rashes on exposed skin Upper Extremities: Moving spontaneously, warm and well perfused. Lower Extremities: moving spontaneously. No LE edema. No calf tenderness Neuro: Alert. She is able to tell me she is at the hospital but is unable to tell me the date. Speech is somewhat dysarthric. She has episodes of aphasia with word finding difficulties and where she speaks incorrect words. She often resorts to spelling although spells the same several letters: W A I T and then cannot remember what she was spelling. Cranial nerves II through XII are intact. Grossly normal strength in upper and lower extremities.. Psych: No agitation or overt thought disorder Imaging obtained was reviewed and independently interpreted Laboratory results independently reviewed. Procedures Procedures documented in this encounter Miscellaneous Notes * Result Encounter Note - Kem Jarrett PA-C - 07/31/20222034 EDT Called pt, spoke with her boyfriend / caregiver to advise changing abx from macrobid to augmentin per urine culture sensitivities for more effective tx of uti. Tx e prescribed to [facility] in [place]. documented in this encounter Plan of Treatment Upcoming Encounters Date Type Department Care Team (Late st Contact Info) Description 03/04/2025 14:00 EDT Telemedicine [facility] Neurology Clinic [address] [place] [id number] Brayan Polk MD [address] [place] [address]- [address] [place] [phone] 07/14/2025 14:30 EDT Office Visit [facility] Hematology & Oncology - [address] [id number] Evin Maria MD [address] [place] [address], [address] [place] [phone] documented as of this encounter Procedures Procedure Name Priority Date/Time Associated Diagnosis Comments UA SEDIMENT (CULTURE IF POS) STAT 07/31/2022 19:46 EDT UA WITH REFLEX SEDIMENT (CULTURE IF POS) STAT 07/31/2022 19:46 EDT BACTERIAL CULTURE, URINE Today 07/31/2022 19:[address] HEAD WO CONTRAST STAT 07/31/2022 1 9:30 EDT COMPLETE BLOOD COUNT AND DIFFERENTIAL STAT 07/31/2022 18:51 EDT COMPREHENSIVE METABOLIC PANEL (CMP) STAT 07/31/2022 18:51 EDT documented in this encounter Results * (ABNORMAL) BACTERIAL CULTURE, URINE (07/31/2022 19:46 EDT) Organism ID Greater than 100,000 CFU/ml Klebsiella pneumoniae(A) VITEK SUSCEPTIBILITY 08/02/2022 7:[address] [facility] Urine URINE SPECIMEN COLLECTION, CLEAN CATCH / Unknown Urine Collect / Unknown 07/31/2022 19:46 EDT 07/31/2022 20:05 EDT Narrative Organism Antibiotic Method Susceptibility Klebsiella pneumoniae Amoxicillin Clavulanic acid VITEK SUSCEPTIBILITY 4 ug/mL: Susceptible Klebsiella pneumoniae Ampicillin VITEK SUSCEPTIBILITY >=32 ug/mL: Resistant Klebsiella pneumoniae Ampicillin Sulbactam VITEK SUSCEPTIBILITY >=32 ug/mL: Resistant Klebsiella pneumoniae Cefazolin VITEK SUSCEPTIBILITY >=64 ug/mL: Resistant Klebsiella pneumoniae Cefepime VITEK SUSCEPTIBILITY >=64 ug/mL: Resistant Klebsiella pneumoniae Ceftriaxone VITEK SUSCEPTIBILITY >=64 ug/mL: Resistant Klebsiella pneumoniae Ciprofloxacin VITEK SUSCEPTIBILITY >=4 ug/mL: Resistant Klebsiella pneumoniae Ertapenem VITEK SUSCEPTIBILITY <=0.5 ug/mL: Susceptible Klebsiella pneumoniae Gentamicin VITEK SUSCEPTIBILITY <=1 ug/mL: Susceptible Klebsiella pneumoniae Levofloxacin VITEK SUSCEPTIBILITY >=8 ug/mL: Resistant Klebsiella pneumoniae Nitrofurantoin VITEK SUSCEPTIBILITY 64 ug/mL: Intermediate Klebsiella pneumoniae Piperacillin Tazobactam VITEK SUSCEPTIBILITY <=4 ug/mL: Susceptible Klebsiella pneumoniae Tobramycin VITEK SUSCEPTIBILITY <=1 ug/mL: Susceptible Klebsiella pneumoniae Trimethoprim-Sulfametho xazole VITEK SUSCEPTIBILITY >=320 ug/mL: Resistant us Derrick Gaytan MD MICROBIOLOGY - GENERAL OR DERABLES Final Result [facility] [address] [place] [address] * (ABNORMAL) UA SEDIMENT (CULTURE IF POS) (07/31/2022 19:46 EDT) Urine RBC Count, Manual 0 - 2 0 - 2, None Seen Cells/HPF 07/31/2022 20:05 [facility] Urine WBC Count 11 - 50(A) 0 - 3, None Seen Cells/HPF 07/31/2022 20:05 [facility] Urine Squamous Count, Manual Few(A) None Seen Cells/HPF 07/31/2022 20:05 [facility] Urine Bacteria Count, Manual Moderate(A ) None Seen Bacteria/H PF 07/31/2022 20:05 [facility] Urine URINE SPECIMEN COLLECTION, CLEAN CATCH / Unknown Urine Collect / Unknown 07/31/2022 19:46 EDT 07/31/2022 19:49 EDT [facility] - 07/31/2022 20:05 EDT Urine Sediment Analysis results are unreliable on urines that are unrefrigerated for >2 hrs or refrigerated >8 hrs. us Derrick Gaytan MD URINALYSIS ORDERABLES Fin al Result Performing Organization Address City/State/[facility] Co de Phone Number [facility] [address] [place] [address] * (ABNORMAL) UA WITH REFLEX SEDIMENT (CULTURE IF POS) (07/31/2022 19:46 EDT) Color UA Yellow Colorless to Dark Yellow 07/31/2022 19:57 [facility] Clarity UA Clear Clear 07/31/2022 19:57 [facility] Glucose UA Negative Negative 07/31/2022 19:57 [facility] Bilirubin UA Negative Negative 07/31/2022 19:57 [facility] Ketones UA Negative Negative 07/31/2022 19:57 [facility] Specific [place], Urine 1.010 1.001 - 1.035 07/31/2022 19:57 [facility] Blood UA Negative Negative 07/31/2022 19:[address] [facility] pH, UA 7.5 4.6 - 8.0 07/31/2022 19:[address] [facility] Protein UA Negative Negative 07/31/2022 19:[address] [facility] Urobilinogen UA 0.2 0.2 , 1.0, Normal mg/dL 07/31/2022 19:[address] [facility] Nitrite UA Positive(A) Negative 07/31/2022 19:[address] [facility] Leukocyte Esterase UA 1+(A) Negative 07/31/2022 19:[address] [facility] Urine URINE SPECIMEN COLLECTION, CLEAN CATCH / Unknown Urine Collect / Unknown 07/31/2022 19:46 EDT 07/31/2022 19:49 EDT us Derrick Gaytan MD URINALYSIS ORDERABLES Fin al Result Performing Organization Address City/State/[facility] Co de Phone Number [facility] [address] [place] [address] * CT HEAD WO CONTRAST (07/31/2022 19:30 EDT) Anatomical Region Laterality Modality Head Computed Tomogra phy 07/31/2022 19:0 5 EDT Impressions 07/31/2022 19:47 EDT No acute intracranial findings. Left temporal and parietal encephalomalacia again seen. THIS DOCUMENT HAS BEEN ELECTRONICALLY SIGNED BY ALISA WEBB MD FOR ANY QUESTIONS OR CONCERNS REGARDING THIS REPORT PLEASE CALL [facility] AT [phone] Narrative 07/31/2022 19:47 EDT PROCEDURE INFORMATION: Exam: CT Head Without Contrast Exam date and time: 07/31/2022 19:05 Age: 52 years old Clinical indication: Other: Unknown; Prior surgery; Surgery type: Craniotomy, jaw surgery; Additional info: Dysarthria TECHNIQUE: Imaging protocol: Computed tomography of the head without contrast. Radiation optimization: All CT scans at this facility use at least one of these dose optimization techniques: automated exposure control; mA and/or kV adjustment per patient size (includes targeted exams where dose is matched to clinical indication); or iterative reconstruction. COMPARISON: MR HEAD W WO CONTRAST 03/08/2022 20:41 FINDINGS: Brain: Left temporal and parietal encephalomalacia again seen. Mild cerebral atrophy. No significant white matter disease for the patient's age. No edema or hemorrhage. Chronic benign postsurgical changes left parietal extra-axial space. No collections. Cerebral ventricles: Ex vacuo dilation of the ventricular system. Paranasal sinuses: No acute sinusitis. Mastoid air cells: No mastoid effusion. Bones/joints: Left-sided cranioplasty appears intact. No acute calvarial pathology. Soft tissues: No suspicious lesions. ?? Procedure Note Alisa Webb MD - 07/31/2022 PROCEDURE INFORMATION: Exam: CT Head Without Contrast Exam date and time: 07/31/2022 19:05 Age: 52 years old Clinical indication: Other: Unknown; Prior surgery; Surgery type: Craniotomy, jaw surgery; Additional info: Dysarthria TECHNIQUE: Imaging protocol: Computed tomography of the head without contrast. Radiation optimization: All CT scans at this facility use at least one of these dose optimization techniques: automated exposure control; mA and/or kV adjustment per patient size (includes targeted exams where dose is matched to clinical indication); or iterative reconstruction. COMPARISON: MR HEAD W WO CONTRAST 03/08/2022 20:41 FINDINGS: Brain: Left temporal and parietal encephalomalacia again seen. Mild cerebral atrophy. No significant white matter disease for the patient's age. No edema or hemorrhage. Chronic benign postsurgical changes left parietal extra-axial space. No collections. Cerebral ventricles: Ex vacuo dilation of the ventricular system. Paranasal sinuses: No acute sinusitis. Mastoid air cells: No mastoid effusion. Bones/joints: Left-sided cranioplasty appears intact. No acute calvarial pathology. Soft tissues: No suspicious lesions. IMPRESSION No acute intracranial findings. Left temporal and parietal encephalomalacia again seen. THIS DOCUMENT HAS BEEN ELECTRONICALLY SIGNED BY ALISA WEBB MD FOR ANY QUESTIONS OR CONCERNS REGARDING THIS REPORT PLEASE CALL [facility] [phone] us Derrick Gaytan MD IMG CT ORDERABLES Final R esult * COMPREHENSIVE METABOLIC PANEL (CMP) (07/31/2022 18:51 EDT) Sodium 139 136 - 145 mmol/L 07/31/2022 19:31 [facility] Potassium 4.7 3.5 - 5.0 mmol/L 07/31/2022 19:31 [facility] Chloride 105 96 - 110 mmol/L 07/31/2022 19:31 [facility] CO2 Total 24 22 - 32 mmol/L 07/31/2022 19:31 [facility] Glucose 95 70 - 100 mg/dL 07/31/2022 19:31 [facility] BUN 12 10 - 26 mg/dL 07/31/2022 19:31 [facility] Creatinine 0.75 0.52 - 1.04 mg/dL 07/31/2022 19:31 [facility] eGFR 95 >60 mL/min/1.7 3m2 07/31/2022 19:31 [facility] Total Protein 6.7 6.3 - 8.2 g/dL 07/31/2022 19:31 [facility] Albumin 4.1 3.4 - 4.9 g/dL 07/31/2022 19:31 [facility] Alkaline Phosphatase 112 38 - 126 U/L 07/31/2022 19:31 [facility] AST 24 15 - 46 U/L 07/31/2022 19:31 [facility] ALT 26 <35 U/L 07/31/2022 19:31 [facility] Bilirubin, Total 0.5 <1.4 mg/dL 07/31/20 19:31 [facility] Calcium 9.5 8.5 - 10.5 mg/dL 07/31/2022 19:31 [facility] Albumin/Globulin Ratio 1.6 1.0 - 2.5 07/31/2022 19:31 [facility] Anion Gap 10 5 - 14 07/31/2022 19:31 [facility] Blood VENOUS BLOOD / Unknown Venipuncture / Unknown 07/31/2022 18:51 EDT 07/31/2022 18:54 EDT us Derrick Gaytan MD CHEMISTRY & BLOOD GAS ORD ERABLES Final Result [facility] [address] [place] [address] * (ABNORMAL) COMPLETE BLOOD COUNT AND DIFFERENTIAL (07/31/2022 18:51 EDT) WBC 5.51 4.00 - 12.40 K/cmm 07/31/2022 18:57 [facility] RBC 4.45 3.86 - 5.04 M/cmm 07/31/2022 18:57 [facility] Hemoglobin 11.4(L) 11.6 - 15.2 gm/dL 07/31/2022 18:57 [facility] HCT 35.5 34.9 - 44.4 % 07/31/2022 18:57 [facility] MCV 80(L) 81 - 98 fl 07/31/2022 18:57 [facility] MCH 25.6(L) 26.7 - 33.3 pg 07/31/2022 18:57 [facility] Hypochromia 1+ 07/31/2022 18:57 [facility] MCHC 32.1 32.1 - 35.9 gm/dL 07/31/2022 18:57 [facility] RDW-CV 15.7(H) <14.7 % 07/31/2022 18:57 [facility] RDW-SD 44.8 <50.4 fl 07/31/2022 18:57 [facility] Anisocytosis 07/31/2022 18:57 [facility] PLT 163 141 - 377 K/cmm 07/31/2022 18:57 [facility] MPV 11.3 9.5 - 12.7 fl 07/31/2022 18:57 [facility] % Neutrophils 57.8 % 07/31/2022 18:57 [facility] % Lymphocytes 34.1 % 07/31/2022 18:57 [facility] % Monocytes 7.4 % 07/31/2022 18:57 [facility] % Eosinophils 0.0 % 07/31/2022 18:57 [facility] % Basophils 0.5 % 07/31/2022 18:57 [facility] % Immature Grans 0.2 % 07/31/20 18:57 [facility] Absolute Neutrophils 3.18 2.20 - 8.85 K/cmm 07/31/2022 18:57 [facility] Absolute Lymphocytes 1.88 1.09 - 3.30 K/cmm 07/31/2022 18:57 [facility] Absolute Monocytes 0.41 0.10 - 0.80 K/cmm 07/31/2022 18:57 [facility] Absolute Eosinophils 0.00(L) 0.03 - 0.61 K/cmm 07/31/2022 18:57 [facility] ABS Basophils 0.03 0.01 - 0.11 K/cmm 07/31/2022 18:57 [facility] Absolute Immature Grans 0.01 0.00 - 0.06 K/cmm 07/31/2022 18:57 [facility] Type of Differential: Auto 07/31/2022 18:57 [facility] Blood VENOUS BLOOD / Unknown Venipuncture / Unknown 07/31/2022 18:51 EDT 07/31/2022 18:54 EDT us Derrick Gaytan MD PACKAGES & DNA PROBE JELANI CROSS Final Result [facility] [address] [place] [address] documented in this encounter Visit Diagnoses Diagnosis Urinary tract infection without hematuria, site unspecified- Primary documented in this encounter Administered Medications Inactive Administered Medications - up to 3 most recent administrations Medication Order MAR Action Action Date Dose Rate Site nitrofurantoin (MACROBID) 100 mg cap STARTER PACK 1 Package, oral, NOW X1, 1 dose, On 07/31/22 at 2030, STAT Given 07/31/2022 20:25 EDT 1 Package nitrofurantoin (MACROBID) 100 mg cap STARTER PACK 1 Package, oral, NOW X1, 1 dose, On 07/31/22 at 2030, STAT Given 07/31/2022 20:25 EDT 1 Package pregabalin (LYRICA) capsule 100 mg 100 mg, oral, NOW X1, 1 dose, On 07/31/22 at 2030, Routine Given 07/31/2022 20:25 EDT 100 mg documented in this encounter Active and Recently Administered Medications Times are shown in EDT. Scheduled Medication Order 07/29/2022 07/30/2022 07/31/2022 nitrofurantoin (MACROBID) 100 mg cap STARTER PACK (COMPLETED) 1 Package, oral, NOW X1, 1 dose, On 07/31/22 at 2030, STAT 2024 (Given - Provid er: Tracy Castañeda RN) nitrofurantoin (MACROBID) 100 mg cap STARTER PACK (COMPLETED) 1 Package, oral, NOW X1, 1 dose, On e 07/31/22 at 2030, STAT 2024 (Given - Provid er: Tracy Castañeda RN) pregabalin (LYRICA) capsule 100 mg (COMPLETED) 100 mg, oral, NOW X1, 1 dose, On 07/31/22 at 2030, Routine 2024 (Given - Provid er: Tracy Castañeda RN) documented in this encounter Care Teams Hog Raiser Relationship Specialty Start Date End Date Romario Hairston MD [address] [place] [address] PCP - General 07/06/20 documented as of this encounter
--- OUTSIDE RECORDS SUMMARY | 2024-12-03 15:54 | XMS_ITS | Encounter Summary ---
Author Organization [facility] Address [address] [place] [address] Care Team Providers Care Ld Teacher Name Role Phone Romario Hairston MD Primary Care Provider [phone]- [phone] Encounter Details Date Type Department Care Team (Late st Contact Info) Description 07/20/[address] [facility] [address] [place] [address] Vashti Grover, RN Social History Tobacco Use Types Packs/Day [...] by mouth 2 times daily. 60 Tablet 07/20/2022 07/23/2022 documented in this encounter Progress Notes * Vashti Grover RN - 07/20/2022 9376 EDT Ever stopped by today looking for a refill for Robaxin for Ynes. Dr. Polk agreed to a script for one month. Ever requested it go to [facility]. documented in this encounter Plan of Treatment Upcoming Encounters Date Type Department Care Team (Late st Contact Info) Description 03/04/2025 14:[address] [facility] [address] [place] [address] Brayan Polk MD [address] [place] [address] [place] [phone] 07/14/2025 14:30 EDT Office Visit [facility] Hematology & Oncology - [address] [address] Evin Maria MD [address] [place] [address], [facility], [address] [place] [address] documented as of this encounter Visit Diagnoses Not on filedocumented in this encounter Discontinued Medications Medication Sig Discontinue Reason Start Date End Da te methocarbamoL (ROBAXIN) 500 mg tablet Take 1 Tablet by mouth 2 times daily. Error 07/20/2022 07/20/2022 documented as of this encounter Care Teams Ld Teacher Relationship Specialty Start Date End Date Romario Hairston MD [facility] [place] [address] PCP - General 07/06/20 documented as of this encounter
--- OUTSIDE RECORDS SUMMARY | 2024-12-03 15:54 | XMS_ITS | Encounter Summary ---
Author Organization [facility] Address [address] [place] [address] Care Team Providers Care Soap Worker Name Role Phone Romario Hairston MD Primary Care Provider +1- [phone] Encounter Details Date Type Department Care Team (Late st Contact Info) Description 05/03/2022 Documentation Visit [facility] Rehabilitation Therapy [address], [place] [id number] Estela Ho, ERIKA [address] [place] [address] Social History Tobacco Use Types Packs/Day Years [...] this encounter Progress Notes * Estela Ho, GROUNDSKEEPER PORTER - 05/03/2022 1200 EDT [facility] Outpatient Rehabilitation Services [phone] Speech-Language Pathology Discharge Inactive File Therapy Diagnosis: Aphasia Reporting Period: 11/28/21 to 05/03/22 Speech/Language Pathology Program to Date: In summary, the program has included: Intervention for expressive and receptive language, multi-modal communication Goal Update: Not able to report on current progress towards goals due to pt not seen recently. Progress described below was reported on at last progress note on 11/28/21: Short Term Goal (s): 1. Patient will overcome word finding difficulties by accurately applying wordretrieval strategies (e.g., circumlocution) during at least 5/10 (50%) of word finding opportunities with minimal clinician prompting. Goal met: Pt independently applies word finding and total communication strategies (gesture, writing, alphabet board) to communicate words and concepts in at least 80% of communication breakdown. 2. Patient will respond to questions immediately after listening to sentence- level text read by theclinician, with at least 90% accuracy provided with minimal clinician delivered cues. Progressing: Pt responds to factual questions with approximately 80% accuracy with minimal prompting when she reads and listens to text simultaneously using ReaderPen. Continue with goal for independence with auditory comprehension. 3. Patient will follow simple 2-step directions presented to her verbally with at least 80% accuracy given minimal clinician delivered cues. Progressing. Pt accurately completes 1-step directions with at least 90% accuracy, and responds with at least 90% accuracy to 2-step directions that she reads. Continue with goal. for increased accuracy of verbal 2-step directions. 4. The pt will decode all words in a short paragraph (3-5 sentences) with at least 80% accuracy, given minimal clinician-delivered prompts. Discontinue goal due to no longer considered appropriate based on pt's current deficits. Short Term Goal(s) Timeframe: 10/27/21 NEW GOAL: 5. Patient will independently overcome word finding difficulties by accurately applying word retrieval strategies (e.g., circumlocution) during at least 8/10 (80%) of word finding opportunities with minimal clinician prompting. Chemistry Department Chair Goal (s): 1.Patient will improve her FCM in Spoken Language Expression and Spoken Language Comprehension to at least 80% in both areas to support improved linguistic functioning across contexts. Continue with goal. 2.Patient will improve her communication abilities by implementing language strategies in at least 80% of opportunities in her daily life, per pt report, to support communication with a variety of partners. Progressing. Pt benefits from prompting to use strategies. Continue with goal. Group Home Goal(s) Timeframe: 11/24/22 Discharge Reason: Admitted to hospital on 03/07/22 Discharge patient at this time; future therapy will require a new physician's referral. Referring Clinician: Romario Heredia MD documented in this encounter Plan of Treatment Upcoming Encounters Date Type Department Care Team (Late st Contact Info) Description 03/04/2025 14:[address] [facility] [place] [facility] [place] [address] [place] [address] Brayan Polk MD 130 [facility] [place] [phone] 07/14/2025 14:30 EDT Office Visit [facility] Cancer Center Hematology & Oncology - [facility] [address], [place] [address] Evin Maria MD 111 [facility], [address] [place] [address] documented as of this encounter Visit Diagnoses Not on filedocumented in this encounter Care Teams Soap Worker Relationship Specialty Start Date End Date Romario Hairston MD [address], [address] [address] PCP - General 07/06/20 documented as of this encounter
--- OUTSIDE RECORDS SUMMARY | 2024-12-03 15:54 | XMS_ITS | Encounter Summary ---
Author Organization [facility] Address [address] [place] [address] Care Team Providers Care Poem Writer Name Role Phone Romario Hairston MD Primary Care Provider +1- [phone] Reason for Visit * Reason Onset Date Comments Referral Request 07/06/2022 Encounter Details Date Type Department Care Team (Late st Contact Info) Description 07/06/2022 Telephone [facility] [place] Neurology Clinic [address] [place] [address] Brayan Polk MD [address] [facility] [place] [address] Referral Request Social History Tobacco Use Types Packs/Day Years [...] * Telephone Encounter - Angie Haley - 07/06/[address] 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 She was there today but because she has Medicaid they had to cancel her due to no referral. documented in this encounter Plan of Treatment Upcoming Encounters Date Type Department Care Team (Late st Contact Info) Description 03/04/2025 14:00 EDT Telemedicine [facility] - [facility] Neurology Clinic [address] [place] [address] Brayan Polk MD [address] [facility]-[address] [place] [address] 07/14/2025 14:30 EDT Office Visit [facility] Cancer Center Hematology & Oncology - [address] [address] Evin Maria MD [address] [place] [address], [facility], [address] [place] [address] documented as of this encounter Visit Diagnoses Diagnosis Nontraumatic intracerebral hemorrhage, unspecified cerebral location, unspecified laterality ([facility]-CMS)- Primary Aphasia Neurologic gait dysfunction Abnormality of gait documented in this encounter Care Teams Poem Writer Relationship Specialty Start Date End Date Romario Hairston MD [address] [place] [address] PCP - General 07/06/20 documented as of this encounter
--- OUTSIDE RECORDS SUMMARY | 2024-12-03 15:56 | XMS_ITS | Encounter Summary ---
Author Organization [facility] Address [address] [place] [address] Care Team Providers Care Load Planner Name Role Phone Romario Hairston MD Primary Care Provider +1- [phone] Reason for Visit * Reason Comments Seizures Encounter Details Date Type Department Care Team (Late st Contact Info) Description 02/16/2022 16:[address] [facility] Neurology Clinic [address] [place] [address] Brayan Polk MD [address] [place] [address] [address] [place] [address] Focal seizure (HCC-CMS) (HCC) (HCC-CMS) (Primary Dx) Social History Tobacco Use Types [...] Exposure Response Date Recorded In the last month, have you been in contact with someone who was confirmed or suspected to have Coronavirus / COVID-19? No / Unsure 02/02/2022 6:00 EST documented as of this encounter Functional Status * Are you deaf or do you have serious difficulty hearing? Answer Date of Assessment Author No 02/02/2022 5:55 Cecelia Bourgeois RN * Are you blind or do you have serious difficulty seeing, even when wearing glasses? Answer Date of Assessment Author No 07/16/2020 18:38 Lisa Muro RN * Do you have serious difficulty walking or climbing stairs? (5 years old or older) Answer Date of Assessment Author No 07/16/2020 18:38 Lisa Muro RN * Do you have difficulty dressing or bathing? (5 years old or older) Answer Date of Assessment Author Yes 07/16/2020 18:38 Lisa Muro RN * Because of a physical, mental, or emotional condition, does this person have difficulty doing errands alone such as visiting a doctor's office or shopping? Answer Date of Assessment Author Yes 09/14/2020 13:44 Lisa Muro RN documented as of this encounter Mental Status * Because of a physical, mental, or emotional condition, do you have serious difficulty concentrating, remembering, or making decisions? (5 years old or older) Answer Entry Date Author Yes 07/16/2020 18:38 Lisa Muro RN documented in this encounter Patient Instructions * Patient Instructions* Brayan Polk MD - 02/16/2022 16:30 EDT Start lamotrigine 25 mg tablets and increase as follows: Weeks 1-2: take 1 25mg tablet twice a day. Weeks 3-4 take 2 25mg tablets twice a day. New prescription 100mg tabs, take 1 tab twice a day from week 5 and on. Call after a week at 100mg twice a day and so we can order a test for the medication level in the blood which will tell us whether to increase the dose further. documented in this encounter Ordered Prescriptions Prescription Sig Dispense Quantity Refills Last Filled Start Date End Date lamoTRIgine (LAMICTAL) 100 mg tablet Take 1 Tablet by mouth 2 times daily. 60 Tablet 3 03/16/2022 05/04/202 2 lamoTRIgine (LAMICTAL) 100 mg tablet Take 1 Tablet by mouth daily. 30 Tablet 3 03/16/2022 2 lamoTRIgine (LAMICTAL) 25 mg tablet Weeks 1-2: take 1 25mg tablet twice a day. Weeks 3-4 take 2 25mg tablets twice a day. New prescription 100mg tabs, take 1 tab twice a day from week 5 and on. 84 Tablet 02/16/2022 2 documented in this encounter Progress Notes * Brayan Polk MD - 02/16/2022 1630 EDT [facility] Neurology Clinic PATIENT NAME: Napoleon White PATIENT : 1970 PCP: Romario Hairston DATE OF SERVICE: 02/16/2022 CHIEF COMPLAINT: ICH and symptomatic seizure HISTORY Napoleon White is a 52 y.o. female who returns in follow-up with her friend Ever as usual. It has been difficult to find a medication combination which controls seizures but doesn't cause side effects. Currently she takes zonisamide 200mg/d and lacosamide 50mg twice a day. Since last visit she hada seizure and was in the ED. Blood levels of her AEDs were drawn and zonisamide was a little low, lacosamide about 7 (range 1-10). She's very tired through the day, not eating well. She has not had any other seizures. She is having trouble with her eyes that she cannot quite describe any better than that. She has had her eyes evaluated and there were no problems seen. Summary: ICH related to cerebral venous thrombosis in January 2020, treated with surgical evacuation by Dr Piña, and subsequent cranioplasty, as well as likely symptomatic seizure in June for which she was briefly admitted to [facility], and placed on levetiracetam 1000mg BID which [...] Outpatient Medications Marked as Taking for the 02/16/22 encounter (Office Visit) with Brayan Polk MD Medication Sig ??? acetaminophen (TYLENOL) 500 mg tablet Take 2 Tabs by mouth every 6 hours. ??? aspirin chewable 81 mg tablet Take 81 mg by mouth daily. ??? buPROPion (WELLBUTRIN SR) 150 mg SR tablet TK 1 T PO QD IN THE MORNING ??? ELIQUIS 2.5 mg tablet TAKE 1 TABLET BY MOUTH TWICE DAILY ??? GENTEAL TEARS MODERATE 0.1-0.3-0.2 % drops INSTILL 1 DROP IN BOTH EYES FOUR TIMES DAILY ??? ketotifen (ZADITOR) 0.025 % (0.035 %) ophthalmic solution ??? lacosamide (VIMPAT) 50 mg tablet Take 1 Tablet by mouth 2 times daily. Daily Max: 100 mg ??? lactulose (CHRONULAC) 10 gram/15 mL solution TAKE 15 ML BY MOUTH EVERY DAY NEEDED ??? magnesium oxide 240 mg magnesium powder in packet Take 1 Packet by mouth 2 times daily. ??? melatonin 5 mg tablet Take 5 mg by mouth at bedtime. ??? OLANZapine (ZYPREXA) 10 mg tablet TAKE 1 TABLET BY MOUTH EVERY DAY AT BEDTIME. TAKE WITH 5MG TABLET FOR TOTAL AT BEDTIME DOSE OF 15MG. ??? OLANZapine (ZYPREXA) 5 mg tablet Take 5 mg by mouth at bedtime. ??? omeprazole (PRILOSEC) 20 mg capsule TAKE 1 CAPSULE BY MOUTH EVERY DAY 30 MINUTES BEFORE BREAKFAST ??? polyethylene glycol (MIRALAX) 17 gram/dose powder Take 17 g by mouth daily. ??? Prazosin (MINIPRESS) 1 mg capsule TK 1 C PO QD HS ??? propRANolol (INDERAL) 10 mg tablet TK 1 T PO Q 8 H OES PRN ??? senna (SENOKOT) 8.6 mg tablet Take 1 Tab by mouth 2 times daily as needed (Constipation). ??? zonisamide (ZONEGRAN) 100 mg capsule Take 200 mg by mouth daily. NEUROLOGIC EXAM Upper right quadrantanopsia, speech slow, somewhat slurred but fluent, normal content though has trouble with expressing complicated thoughts. Normal casual gait. Mild right sided hyperreflexia compared to left. LABS: Results for NAPOLEON WHITE ( ) as of 02/16/2022 16:45 Ref. Range 02/02/2022 09:26 LACOSAMIDE Latest Ref Range: 1.0 - 10.0 mcg/mL 7.1 Zonisamide Latest Ref Range: 10 - 40 mcg/mL 9.7 (L) NEUROIMAGING STUDIES: Personally reviewed Noncontrast head CT 02/12/2020: Normal parenchyma, hyperdensity noted in the transverse sinus especially on the left. Noncontrast head CT 08/02/2020: Postsurgical changes on the left side as well as atrophy of the left temporoparietal region, and a small amount of subdural fluid collection with slight hyperdensity suggesting it may be aging blood. Noncontrast head CT 09/18/21 unchanged. ASSESSMENT: Napoleon White is a 52 y.o. female who returns in follow-up for intracerebral hemorrhage secondary to cerebral venous thrombus in January 2020 treated with evacuation and cranioplasty, and subsequentleft hemispheric focal onset seizure causing right gaze deviation and right arm movements. Zonisamide was incompletely helpful at 200 mg/day, and caused significant weight loss and anorexia 300 mg today. Levetiracetam previously caused severe anxiety. 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 -Continue lacosamide 50 mg twice a day -Start lamotrigine first prescription with 25 mg tablets take 1 tablet twice daily for 2 weeks then2 tablets twice daily for 2 weeks, then new prescription for 100 mg tablets to take 1 tablet twice daily. Call a week later and we will order a serum level to be taken at trough timing. Anticipate wewill need further dose increase. Eventual goal is to eliminate probably zonisamide but also potentially lacosamide since both may be causing her side effects. -Follow-up in about 2 months Brayan Polk MD I spent a [...] Info) Description 03/04/2025 14:00 EDT Telemedicine [facility] [place] Neurology Clinic [address] [place] [address] Brayan Polk MD 130 [facility]- [address] [place] [address] 07/14/2025 14:30 EDT Office Visit [facility] Hematology & Oncology - [address] [id number] Evin Maria MD 111 [facility], [address] [place] [address] documented as of this encounter Visit Diagnoses Diagnosis Focal seizure (HCC-CMS)- Primary Other convulsions documented in this encounter Discontinued Medications Medication Sig Discontinue Reason Start Date End Da te lamoTRIgine (LAMICTAL) 100 mg tablet Take 1 Tablet by mouth daily. 03/16/2022 02/16/2022 documented as of this encounter Historical Medications * This list may reflect changes made after this encounter. GENTEAL TEARS MODERATE 0.1-0.3-0.2 % drops INSTILL 1 DROP IN BOTH EYES FOUR TIMES DAILY 02/04/2022 02/04/2024 added in this encounter Care Teams Load Planner Relationship Specialty Start Date End Date Romario Hairston MD [facility] [place] [address] PCP - General 07/06/20 documented as of this encounter
--- OUTSIDE RECORDS SUMMARY | 2024-12-03 15:56 | XMS_ITS | Encounter Summary ---
Author Organization [facility] Address [address] [place] [address] Care Team Providers Care Crawler Crane Operator Name Role Phone Romario Hairston MD Primary Care Provider +1- [phone] Encounter Details Date Type Department Care Team (Late st Contact Info) Description 12/12/2021 Orders Only [facility] - [facility] [place] Neu[place] Clinic [address] [place] [address] Brayan Polk MD 130 [facility]-[address] [place] [address] Neurologic gait dysfunction (Primary Dx) Social History Tobacco Use Types [...] hearing? Answer Date of Assessment Author No 07/16/2020 18:38 Lisa Muro RN * Are you blind or do [...] Lisa Muro RN documented in this encounter Plan of Treatment Upcoming Encounters Date Type Department Care Team (Late st Contact Info) Description 03/04/2025 14:[address] [facility] Neurology Clinic [address] [place] [id number] Brayan Polk MD [address] [place] [address]-[address] [place] [address] 07/14/2025 14:30 EDT Office Visit [facility] Cancer Center Hematology & Oncology - [address] [phone] Evin Maria MD [address] [place] [address], [address] [place] [phone] documented as of this encounter Visit Diagnoses Diagnosis Neurologic gait dysfunction- Primary Abnormality of gait documented in this encounter Care Teams Crawler Crane Operator Relationship Specialty Start Date End Date Romario Hairston MD [address] [facility] [facility], [address] [id number] PCP - General 07/06/20 documented as of this encounter
--- OUTSIDE RECORDS SUMMARY | 2024-12-03 15:56 | XMS_ITS | Encounter Summary ---
Author Organization [facility] Address [address] [place] [address] Care Team Providers Care Boom Worker Name Role Phone Romario Hairston MD Primary Care Provider +1- [phone] Reason for Visit * Reason Onset Date Comments Medications Refill 03/02/2022 Encounter Details Date Type Department Care Team (Late st Contact Info) Description 03/02/[address] [facility] [place] Neurology Clinic [address] [place] [address] aVshti Galvan, [place] Medications Refill Social History Tobacco Use Types [...] hearing? Answer Date of Assessment Author No 02/22/2022 17:37 EDT Trish Rivera, RN * Are you blind or do [...] Lisa Muro RN documented in this encounter Ordered Prescriptions Prescription Sig Dispense Quantity Refills Last Filled Start Date End Date lacosamide (VIMPAT) 50 mg tablet Take 1 Tablet by mouth 2 times daily. Daily Max: 100 mg 180 Tablet 1 03/02/2022 03/28/2022 documented in this encounter Miscellaneous Notes * Addendum Note - Vashti Galvan RN - 03/02/2022 1605 EDTAddended by: VASHTI GALVAN on: 03/02/2022 16:05 Modules accepted: Orders * Telephone Encounter - Vashti Galvan RN - 03/02/2022 1601 EDT Script did not transmit electronically - called into pharmacy. * Telephone Encounter - Vashti Galvan RN - 03/02/2022 1557 EDT Request: lacosamide 50 mg bid Last Visit: 02/16/2022 Next Visit: 06/01/2022 Reference Date: 02/16 same Action: Escript as tabbed documented in this encounter Plan of Treatment Upcoming Encounters Date Type Department Care Team (Late st Contact Info) Description 03/04/2025 14:00 EDT Telemedicine [facility] Neurology Clinic [address] [place], [place] [address] Brayan Polk MD 130 [facility] [address] [place] [address] 07/14/2025 14:30 EDT Office Visit [facility] Cancer Center Hematology & Oncology - [address] [address] Evin Maria MD 111 [facility], [address] [place] [address] documented as of this encounter Visit Diagnoses Not on filedocumented in this encounter Discontinued Medications Medication Sig Discontinue Reason Start Date End Da te lacosamide (VIMPAT) 50 mg tablet Take 1 Tablet by mouth 2 times daily. Daily Max: 100 mg Reorder 11/27/2021 03/02/2022 documented as of this encounter Care Teams Boom Worker Relationship Specialty Start Date End Date Romario Hairston MD [address], [address] [id number] PCP - General 07/06/20 documented as of this encounter
--- OUTSIDE RECORDS SUMMARY | 2024-12-03 15:56 | XMS_ITS | Encounter Summary ---
Author Organization [facility] Address [address] [place] [address] Care Team Providers Care Motorbike Courier Name Role Phone Romario Hairston MD Primary Care Provider +1- [phone] Reason for Visit * Reason Comments Seizures Encounter Details Date Type Department Care Team (Late st Contact Info) Description 02/02/2022 5:54 EST - 02/02/2022 9:54 EST Emergency [facility] Emergency Department [address] [place], [place] [id number] Eleazar Ozuna MD [address] [place] [id number] Damon Manuel MD [address] [place] [address] Seizure (HCC-CMS) (HCC) (HCC-CMS) (Primary Dx) Discharge Disposition: Home or Self [...] 6:00 EST documented as of this encounter Last Filed Vital Signs Vital Sign Reading Time Taken Comments Blood Pressure 115/80 02/02/2022 0900 EST Pulse - - Temperature 36.3 ??C (97.3 ??F) 02/02/2022 0558 EST Respiratory Rate 16 02/02/2022 0900 EST Oxygen Saturation 96% 02/02/2022 0900 EST Inhaled Oxygen Concentration - - Weight 57.5 kg (126 lb 12.2 oz) 02/02/2022 0558 EST Height - - Body Mass Index 21.76 01/16/2021 0937 EST documented in this encounter Functional Status * Are you deaf or do you have serious difficulty hearing? Answer Date of Assessment Author No 02/02/2022 5:55 EST Cecelia Espinoza RN * Are you blind or do [...] Lisa Muro RN documented in this encounter Discharge Instructions * Discharge Instructions* Damon Manuel MD - 02/02/2022 8:57 EST You were seen in the ED after seizure. Your magnesium level was low. You may start using the magnesium oxide powder in place of the tablets to make it easier to take. Aprescription for this was sent to your pharmacy. You should receive a call from neurology after they have received the results of your blood tests to discuss your medications. Return to the emergency department for any worsening symptoms. documented in this encounter Medications at Time of Discharge omeprazole (PRILOSEC) 20 mg capsule TAKE 1 CAPSULE BY MOUTH EVERY DAY 30 MINUTES BEFORE BREAKFAST 07/05/2021 Prazosin (MINIPRESS) 1 mg capsule Take 1 Capsule by mouth at bedtime. 08/09/2020 acetaminophen (TYLENOL) 500 mg tablet Take 2 Tabs by mouth every 6 hours. 07/14/2020 4 aspirin chewable 81 mg tablet Take 1 Tablet by mouth daily. 3 buPROPion (WELLBUTRIN SR) 150 mg SR tablet TK 1 T PO QD IN THE MORNING 10/17/2020 2 diclofenac sodium 1 % gel APPLY 2 GRAMS TO THE AFFECTED JOINT BID 08/10/2020 2 docusate sodium (COLACE) 100 mg capsule Take 1 Cap by mouth 2 times daily. 07/14/2020 2 ELIQUIS 2.5 mg tablet TAKE 1 TABLET BY MOUTH TWICE DAILY 60 Tablet 6 11/07/2021 2 ketotifen (ZADITOR) 0.025 % (0.035 %) ophthalmic solution Not filling 08/09/2020 2 lacosamide (VIMPAT) 50 mg tablet Take 1 Tablet by mouth 2 times daily. Daily Max: 100 mg 60 Tablet 2 11/27/2021 2 lactulose (CHRONULAC) 10 gram/15 mL solution TAKE 15 ML BY MOUTH EVERY DAY NEEDED 11/16/2020 4 magnesium oxide 240 mg magnesium powder in packet Take 1 Packet by mouth 2 times daily. 60 Packet 02/02/2022 2 melatonin 5 mg tablet Take 2 Tablets by mouth at bedtime. 4 OLANZapine (ZYPREXA) 10 mg tablet TAKE 1 TABLET BY MOUTH EVERY DAY AT BEDTIME. TAKE WITH 5MG TABLET FOR TOTAL AT BEDTIME DOSE OF 15MG. 09/01/2021 2 OLANZapine (ZYPREXA) 5 mg tablet Take 5 mg by mouth daily. Filled on 01/08/22 #90 tablets, per caregiver pt may take an extra' dose if needed 08/02/2020 2 polyethylene glycol (MIRALAX) 17 gram/dose powder Take 17 g by mouth daily. 510 g 03/31/2020 4 propRANolol (INDERAL) 10 mg tablet TK 1 T PO Q 8 H OES PRN 08/09/2020 3 QUEtiapine (SEROQUEL) 50 mg tablet Take 50 mg by mouth at bedtime. 2 senna (SENOKOT) 8.6 mg tablet Take 1 Tab by mouth 2 times daily as needed (Constipation). 03/30/2020 4 zonisamide (ZONEGRAN) 100 mg capsule Take 200 mg by mouth daily. 2 documented as of this encounter Ordered Prescriptions Prescription Sig Dispense Quantity Refills Last Filled Start Date End Date magnesium oxide 240 mg magnesium powder in packet Take 1 Packet by mouth 2 times daily. 60 Packet 02/02/2022 03/28/2022 documented in this encounter Discharge Disposition Disposition Code Departure Means Destination Home or Self Prison documented in this encounter ED Notes * Jacinta Riojas RN - 02/02/2022 0925 EST Lab at bedside getting samples then will medicate and discharge pt. * Damon Manuel MD - 02/02/2022 0912 EST Assumed care of this patient at change of shift. Labs again show hypomagnesemia of 1.3. She was given 4 g IV. Caregiver states she has a very hard time swallowing the magnesium oxide tablets. I prescribed magnesium oxide powder. Discussed with patient's neurologist, Dr. Polk. Antiepileptic levels have been sent. He will call them to discuss possible dosage changes after these return. Discharged home. * Kiah Weaver - 02/02/2022 0822 EST Pt is resting in the stretcher, declines having any distress or needs at this time. * Delaney Yadav RN - 02/02/2022 0634 EST Patient caregiver requesting Olanzapine for patient's anxiety. Patient is showing no S/S of anxietyat this time that nurse has seen. Patient has also not indicated to caregiver that she is anxious. Provider and this RN looked at patient medications and it shows that Olanzapine is prescribed at HS.Patient has no documented PRN anxiety medications in system. Caregiver states that she takes medications throughout day for anxiety; advised caregiver that he should have the office prescribing thesemedications update the records. * Delaney Yadav RN - 02/02/2022 0628 EST Blood drawn via butterfly needle per protocol, purple and yellow tube(s) sent to lab per order. * Eleazar Ozuna MD - 02/02/2022 0613 EST This patient received an evaluation and medical screening exam for emergent medical conditions at [facility] Emergency Department on 02/02/2022 History of Present Illness HPI Ynes White is a 52 y.o. female with a history of intracranial hemorrhage and subsequent seizures presents with complaint of having a seizure prior to arrival. Per care provider, patient had a quick seizure whereby she was tapping both hands and tightened up. No LOC. No bladder incontinence. Per caregiver, patient last had a seizure 3 months prior. Patient has had about 4 seizures in 2 years. Patient had did have an increase of olanzapine 3 weeks ago from 15 to 20 mg at night and sincethat time caregiver has noted that she seems more tired but has had also a decreased amount of tremors. Patient has also had anorexia but that was also noted in September,. No recent illnesses. No fevers or chills. Patient is been taking her medications as prescribed. Patient is scheduled to follow-up with neurology in 3 days. Patient is currently at baseline. Patient has no complaints currently. Data Reviewed this visit No current facility-administered medications for this encounter. Current Outpatient Medications Medication Sig Dispense Refill ??? acetaminophen (TYLENOL) 500 mg tablet Take 2 Tabs by mouth every 6 hours. ??? aspirin chewable 81 mg tablet Take 81 mg by mouth daily. ??? buPROPion (WELLBUTRIN SR) 150 mg SR tablet TK 1 T PO QD IN THE MORNING ??? diclofenac sodium 1 % gel APPLY 2 GRAMS TO THE AFFECTED JOINT BID ??? docusate sodium (COLACE) 100 mg capsule Take 1 Cap by mouth 2 times daily. ??? ELIQUIS 2.5 mg tablet TAKE 1 TABLET BY MOUTH TWICE DAILY 60 Tablet 6 ??? ketotifen (ZADITOR) 0.025 % (0.035 %) ophthalmic solution ??? lacosamide (VIMPAT) 50 mg tablet Take 1 Tablet by mouth 2 times daily. Daily Max: 100 mg 60 Tablet 2 ??? lactulose (CHRONULAC) 10 gram/15 mL solution [...] PO Q 8 H OES PRN ??? QUEtiapine (SEROQUEL) 50 mg tablet Take 50 mg by mouth at bedtime. ??? senna (SENOKOT) 8.6 mg tablet Take 1 Tab by mouth 2 times daily as needed (Constipation). ??? zonisamide (ZONEGRAN) 100 mg capsule Take 200 mg by mouth daily. Review of Symptoms ROS A 10-point review of systems was performed. The historian answered negative to all questions with the exceptions of those explicitly detailed as positives in the HPI. Pertinent negatives are also explicitly stated. Physical Exam Vital Signs Vital Signs Temp: 36.3 ??C (97.3 ??F) Temp src: Oral Heart Rate: (!) 122 BPM Resp: 18 SpO2: 97 % BP: (!) 143/104 O2 Device: None (Room air) Nursing notes and vital signs were reviewed. Physical Exam Vitals and nursing note reviewed. Constitutional: General: She is not in acute distress. Appearance: Normal appearance. HENT: Head: Atraumatic. Microcephalic. Right Ear: External ear normal. Left Ear: [...] General: Skin is warm and dry. Neurological: General: No focal deficit present. Mental Status: She is alert and oriented to person, place, and time. Psychiatric: Mood and Affect: Mood normal. Behavior: Behavior normal. ED Course/Medical Decision Making Final diagnoses: None 52 y.o. female with a history of intracranial hemorrhage and subsequent seizures presents with complaint of having a seizure prior to arrival. Per care provider, patient had a quick seizure wherebyshe was tapping both hands and tightened up. No LOC. No bladder incontinence. Patient also has history of hypomagnesium. Labs obtained. Care provider at bedside and states that patient is at baseline. Patient is afebrile. Vital stable. Will sign out to incoming physician pending lab results, reevaluation and final disposition. Procedures Procedures None Data Interpretation/Results Laboratory results independently reviewed, significant for: Labs Reviewed - No data to display Imaging obtained was reviewed and independently interpreted: No orders to display Disposition Patient signed out to incoming physician pending lab results, reevaluation, and final disposition. Disposition decisions were made weighing risks and [...] was at risk of sudden decompensation. * Cecelia Espinoza RN - 02/02/2022 1389 EST Pt friend called EMS for reported seizure lasting approximately 20 seconds. Denies incontinence. documented in this encounter Plan of Treatment Upcoming Encounters Date Type Department Care Team (Late st Contact Info) Description 03/04/2025 14:00 EDT Telemedicine [facility] [address] [place] [phone] Brayan Polk MD [address] [facility] [address] [place] [address] 07/14/2025 14:30 EDT Office Visit [facility] Hematology & Oncology - [address] [address] Evin Maria MD [address] [place] [address], [address] [place] [address] documented as of this encounter Procedures Procedure Name Priority Date/Time Associated Diagnosis Comments LACOSAMIDE (MISC) Routine 02/02/2022 9:2 6 EST ZONISAMIDE Routine 02/02/2022 9:26 EST COMPLETE BLOOD COUNT AND DIFFERENTIAL STAT 02/02/2022 6:25 EST MAGNESIUM STAT 02/02/2022 6:25 EST COMPREHENSIVE METABOLIC PANEL (CMP) STAT 02/02/2022 6:25 EST documented in this encounter Results * (ABNORMAL) ZONISAMIDE (02/02/2022 9:26 EST) Zonisamide, S 9.7(L) 10 - 40 mcg/mL 02/06/2022 7:30 EDT [facility] agencyQ Comment: ADDITIONAL INFORMATION This test was developed and its performance characteristics determined by [facility] in a manner consistent with CLIA requirements. This test has not been cleared or approved by the U.S. Food and Drug Administration. Test Performed by: [facility] [address] [place] [address] Booster Pump Operator: Kain Shay M.D. Ph.D.; CLIA# [id number] Blood VENOUS BLOOD / Unknown Venipuncture / Unknown 02/02/2022 9:26 EST 02/02/2022 10:17 EST Damon Mnauel MD CHEMISTRY & BLOOD GAS ORDERABLES Final Result [facility] [address] [place] [address] * LACOSAMIDE (MISC) (02/02/2022 9:26 EST) LACOSAMIDE 7.1 1.0 - 10.0 mcg/mL 02/05/2022 9:59 EDT [facility] agencyQ Comment: ADDITIONAL INFORMATION This test was developed and its performance characteristics determined by [facility] in a manner consistent with CLIA requirements. This test has not been cleared or approved by the U.S. Food and Drug Administration. Test Performed by: [facility] [address] [place] [address] Booster Pump Operator: Kain Shay M.D. Ph.D.; CLIA# [id number] Blood VENOUS BLOOD / Unknown Venipuncture / Unknown 02/02/2022 9:26 EST 02/02/2022 10:17 EST Damon Manuel MD CHEMISTRY & BLOOD GAS ORDERABLES Final Result Performing Organization Address City/[facility]/ZIP Co de Phone Number [facility] [address] [place] [address] * (ABNORMAL) MAGNESIUM (02/02/2022 6:25 EST) Magnesium 1.3(L) 1.7 - 2.8 mg/dL 02/02/2022 7:35 EST [facility] Blood VENOUS BLOOD / Unknown Venipuncture / Unknown 02/02/2022 6:25 EST 02/02/2022 6:28 EST Eleazar Ozuna MD CHEMISTRY & BLOOD GAS ORDERABLES Final Result [facility] [address] [place] [address] * (ABNORMAL) COMPLETE BLOOD COUNT AND DIFFERENTIAL (02/02/2022 6:25 EST) WBC 4.53 4.00 - 12.40 K/cmm 02/02/2022 6:30 [facility] RBC 3.40(L) 3.86 - 5.04 M/cmm 02/02/2022 6:30 [facility] Hemoglobin 11.8 11.6 - 15.2 gm/dL 02/02/2022 6:30 [facility] HCT 33.7(L) 34.9 - 44.4 % 02/02/2022 6:30 [facility] MCV 99(H) 81 - 98 fl 02/02/2022 6:30 [facility] MCH 34.7(H) 26.7 - 33.3 pg 02/02/2022 6:30 [facility] MCHC 35.0 32.1 - 35.9 gm/dL 02/02/2022 6:30 [facility] RDW-CV 13.1 <14.7 % 02/02/2022 6:30 [facility] RDW-SD 46.7 <50.4 fl 02/02/2022 6:30 [facility] PLT 184 141 - 377 K/cmm 02/02/2022 6:30 [facility] MPV 10.0 9.5 - 12.7 fl 02/02/2022 6:30 [facility] % Neutrophils 62.8 % 02/02/2022 6:30 [facility] % Lymphocytes 29.8 % 02/02/2022 6:30 [facility] % Monocytes 6.6 % 02/02/2022 6:30 [facility] % Eosinophils 0.0 % 02/02/2022 6:30 [facility] % Basophils 0.4 % 02/02/2022 6:30 [facility] % Immature Grans 0.4 % 02/03/20 6:30 [facility] Absolute Neutrophils 2.84 2.20 - 8.85 K/cmm 02/02/2022 6:30 [facility] Absolute Lymphocytes 1.35 1.09 - 3.30 K/cmm 02/02/2022 6:30 [facility] Absolute Monocytes 0.30 0.10 - 0.80 K/cmm 02/02/2022 6:30 [facility] Absolute Eosinophils 0.00(L) 0.03 - 0.61 K/cmm 02/02/2022 6:30 [facility] ABS Basophils 0.02 0.01 - 0.11 K/cmm 02/02/2022 6:30 [facility] Absolute Immature Grans 0.02 0.00 - 0.06 K/cmm 02/02/2022 6:30 [facility] Type of Differential: Auto 02/02/2022 6:30 [facility] Blood VENOUS BLOOD / Unknown Venipuncture / Unknown 02/02/2022 6:25 EST 02/02/2022 6:28 EST us Eleazar Ozuna MD PACKAGES & DNA PROBE O RDERABLES Final Result [facility] [address] [place] [address] * (ABNORMAL) COMPREHENSIVE METABOLIC PANEL (CMP) (02/02/2022 6:25 EST) Sodium 134(L) 136 - 145 mmol/L 02/02/2022 7:35 [facility] Potassium 4.0 3.5 - 5.0 mmol/L 02/02/2022 7:35 [facility] Chloride 102 96 - 110 mmol/L 02/02/2022 7:35 [facility] CO2 Total 20(L) 22 - 32 mmol/L 02/02/2022 7:35 [facility] Glucose 88 70 - 100 mg/dL 02/02/2022 7:35 [facility] BUN 5(L) 10 - 26 mg/dL 02/02/2022 7:35 [facility] Creatinine 0.64 0.52 - 1.04 mg/dL 02/02/2022 7:35 [facility] eGFR 101 >60 mL/min/1.7 3m2 02/02/2022 7:35 [facility] Total Protein 5.7(L) 6.3 - 8.2 g/dL 02/02/2022 7:35 [facility] Albumin 3.2(L) 3.4 - 4.9 g/dL 02/02/2022 7:35 [facility] Alkaline Phosphatase 98 38 - 126 U/L 02/02/2022 7:35 [facility] AST 29 15 - 46 U/L 02/02/2022 7:35 [facility] ALT 15 <35 U/L 02/02/2022 7:35 [facility] Bilirubin, Total 0.4 <1.4 mg/dL 02/03/20 7:35 [facility] Calcium 9.4 8.5 - 10.5 mg/dL 02/02/2022 7:35 [facility] Albumin/Globulin Ratio 1.3 1.0 - 2.5 02/02/2022 7:35 [facility] Anion Gap 12 5 - 14 02/02/2022 7:35 [facility] Blood VENOUS BLOOD / Unknown Venipuncture / Unknown 02/02/2022 6:25 EST 02/02/2022 6:28 EST us Eleazar Ozuna MD CHEMISTRY & BLOOD GAS ORDERABLES Final Result Performing Organization Address City/State/[facility] Co de Phone Number [facility] [address] [place] [id number] documented in this encounter Visit Diagnoses Diagnosis Seizure (HCC-CMS)- Primary Other convulsions documented in this encounter Administered Medications Inactive Administered Medications - up to 3 most recent administrations Medication Order MAR Action Action Date Dose Rate Site lacosamide (VIMPAT) oral solution 50 mg 50 mg, oral, Once (Time Specified), 1 dose, On Sat02/02/22 at 0930, Routine Given 02/02/2022 9:35 EST 50 mg magnesium sulfate 4 g in water 50 mL 4 g, intravenous, Administer over 30 Minutes, NOW X1, 1 dose, On Sat02/02/22 at 0815, Routine New Bag 02/02/2022 8:06 EST 4 g documented in this encounter Active and Recently Administered Medications Times are shown in EST. Scheduled Medication Order 01/31/2022 02/01/2022 02/02/2022 lacosamide (VIMPAT) oral solution 50 mg (COMPLETED) 50 mg, oral, Once (Time Specified), 1 dose, On Sat02/02/22 at 0930, Routine 0935 (Given - Provid er: Jacinta Riojas RN) magnesium sulfate 4 g in water 50 mL (COMPLETED) 4 g, intravenous, Administer over 30 Minutes, NOW X1, 1 dose, On Sat02/02/22 at 0815, Routine 0806 (New Bag - Prov ider: Judy Roque RN)0822 (Completed - Provider: Kiah Weaver) documented in this encounter Orders Nursing Count Last Ordered Date First Orde red Date CALL PHYSICIAN SPECIALTY CONSULT 1 02/03/20 22 documented in this encounter Care Teams Motorbike Courier Relationship Specialty Start Date End Date Romario Hairston MD [address] [place] [address] PCP - General 07/06/20 documented as of this encounter
--- OUTSIDE RECORDS SUMMARY | 2024-12-03 15:56 | XMS_ITS | Encounter Summary ---
Author Organization [facility] Address [address] [place] [address] Care Team Providers Care Cold Strip Roller Name Role Phone Romario Hairston MD Primary Care Provider +1- [phone] Encounter Details Date Type Department Care Team (Latest Contact Info) Description 03/03/2022 Travel Social History Tobacco Use Types Packs/Day [...] was confirmed or suspected to have Coronavirus/COVID-19? No / Unsure 03/03/2022 12:31 EDT documented as of this encounter Functional Status * Are you deaf or do you have serious difficulty hearing? Answer Date of Assessment Author No 02/22/2022 17:37 EDT Trish Rivera, AZALEA * Are you blind or do you have serious difficulty seeing, even when wearing glasses? Answer Date of Assessment Author No 07/16/2020 18:38 EDT Lisa Broderick RN * Do you have serious difficulty walking or climbing stairs? (5 years old or older) Answer Date of Assessment Author No 07/16/2020 18:38 EDT Lisa Broderick RN * Do you have difficulty dressing or bathing? (5 years old or older) Answer Date of Assessment Author Yes 07/16/2020 18:38 EDT Lisa Broderick RN * Because of a physical, mental, or emotional condition, does this person have difficulty doing errands alone such as visiting a doctor's office or shopping? Answer Date of Assessment Author Yes 09/14/2020 13:44 EDT Lisa Broderick RN documented as of this encounter Mental Status * Because of a physical, mental, or emotional condition, do you have serious difficulty concentrating, remembering, or making decisions? (5 years old or older) Answer Entry Date Author Yes 07/16/2020 18:38 EDT Lisa Broderick RN documented in this encounter Plan of Treatment Upcoming Encounters Date Type Department Care Team (Late st Contact Info) Description 03/04/2025 14:00 EDT Telemedicine [facility] [address] [place] [id number] Brayan Polk MD [address] [place] [address]-[address] [place] [phone] 07/14/2025 14:30 EDT Office Visit [facility] Hematology & Oncology - [address] [phone] Evin Maria MD [address] [facility], [address] [place] [phone] documented as of this encounter Visit Diagnoses Not on filedocumented in this encounter Care Teams Cold Strip Roller Relationship Specialty Start Date End Date Romario Hairston MD [address], [address] [address] PCP - General 07/06/20 documented as of this encounter
--- OUTSIDE RECORDS SUMMARY | 2024-12-03 15:56 | XMS_ITS | Encounter Summary ---
Author Organization [facility] Address [address] [place] [address] Care Team Providers Care Repair Welder Name Role Phone Romario Hairston MD Primary Care Provider +1- [phone] Reason for Visit * Reason Onset Date Comments Other 02/26/2022 Encounter Details Date Type Department Care Team (Late st Contact Info) Description 02/26/2022 Telephone [facility] [place] Neu[facility] Clinic [address] [place] [address] Brayan Polk MD [address] [facility] [address] [place] [address] Other Social History Tobacco Use [...] Assessment Author No 02/22/2022 17:37 EDT Trish Rivera RN * Are you blind or do [...] Answer Entry Date Author Yes 07/16/2020 18:38 EDLisa Rose RN documented in this encounter Miscellaneous Notes * Telephone Encounter - Brayan Polk MD - 02/26/2022 1010 EDT Noted thanks. * Telephone Encounter - Angie Haley - 02/26/2022 0853 EDT Ever called to let Dr Polk know that Ynes was in ED twice over the weekend for vomiting. Theygave her anti-naseua medication. documented in this encounter Plan of Treatment Upcoming Encounters Date Type Department Care Team (Late st Contact Info) Description 03/04/2025 14:00 EDT Telemedicine [facility] Neurology Clinic [address] [place] [address] Brayan Polk MD [address] [facility] [address] [place] [address] 07/14/2025 14:30 EDT Office Visit [facility] Hematology & Oncology - [address] [phone] Evin Maria MD [address] [facility], [address] [place] [phone] documented as of this encounter Visit Diagnoses Not on filedocumented in this encounter Care Teams Repair Welder Relationship Specialty Start Date End Date Romario Hairston MD [address], [address] [phone] PCP - General 07/06/20 documented as of this encounter
--- OUTSIDE RECORDS SUMMARY | 2024-12-03 15:56 | XMS_ITS | Encounter Summary ---
Author Organization [facility] Address [address] [place] [address] Care Team Providers Care Enrobing Machine Feeder Name Role Phone Romario Hairston MD Primary Care Provider [phone] Reason for Visit * Auth/Cert Specialty Diagnoses / Procedures Referred By Mitch pruett Referred To Contact Diagnoses UTI (urinary tract infection) Altered mental status, unspecified altered mental status type Urinary tract infection associated with indwelling urethral catheter, initial encounter ([facility] Referral ID Status Reason Start Date Expiration Date Visits Re quested Visits Authorized [id number] 1 1 Encounter Details Date Type Department Care Team (Latest Contact Info) Description 03/07/2022 8:29 EDT - 03/28/2022 14:17 EDT Hospital Encounter [facility] [place] [address] [place] [id number] Yves Main MD [address] [place] [phone] Yung Henderson MD [address] [place] [address] [phone] Jv Kessler MD [address] [place] [phone] Nayely Bridges MBBS [address] [place] [address] [phone] Jona Gomez MD [address] [place] [address] [phone] Altered mental status, unspecified altered mental status type (Primary Dx); Urinary tract infection associated with indwelling urethral catheter, initial encounter ([facility]) ([facility]); Severe protein-calorie malnutrition ([facility]) ([facility]) Discharge Disposition: Rehab Facility Social History Tobacco Use Types Packs/Day Years [...] 12:31 EDT documented as of this encounter Last Filed Vital Signs Vital Sign Reading Time Taken Comments Blood Pressure 115/73 03/28/2022 0515 EDT Pulse 89 03/25/2022 1415 EDT Temperature 36.7 ??C (98 ??F) 03/28/2022 0515 EDT Respiratory Rate 16 03/28/2022 0515 EDT Oxygen Saturation 96% 03/28/2022 0515 EDT Inhaled Oxygen Concentration - - Weight 60.5 kg (133 lb 4.8 oz) 03/28/2022 0515 E DT Height 170.2 cm (5' 7) 03/07/2022 1302 EDT Body Mass Index 20.88 03/07/2022 1302 EDT documented in this encounter [...] Henry RN documented in this encounter Discharge Summaries * Jv Kessler MD - 03/28/2022 1215 EDT Primary Care Provider: Romario Hairston Attending Physician: Jv Kessler MD Admit Date: 03/07/2022 Discharge Date: 03/28/2022 Disposition (location): Rehab ([facility]) Condition at Discharge: Improved Reason for Admission (chief complaint): weakness Principal/Final Diagnosis: Severe protein-calorie malnutrition ([facility]) ([facility]) Additional Problems Managed in the Hospital: Active Hospital Problems Diagnosis Date Noted ??? *Severe protein-calorie malnutrition (HCC-CMS) ([facility]) 03/28/2022 ??? Focal epilepsy ([facility]) ([facility]) 02/16/2022 Resolved Hospital Problems Diagnosis Date Noted Date Resolved ??? UTI (urinary tract infection) 03/07/2022 03/28/2022 ??? Altered mental status, unspecified altered mental status type 03/07/2022 03/28/2022 ??? 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 Neurology was consulted and recommended changing her antiepileptic medications due to potential side effects. 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 Polk recommended stopping the valproate and starting oxcarbazepine. Oxcarbazepine was discontinued soon afterwards for dropping sodium levels 2/[address] the medication[address] Dr[address] Polk recommended trying pregabalin and she has remained on this with continued improvement. She was noted to have severe protein-calorie malnutrition and started on CPN. As her mental status and functioning improved her oral intake improved and the CPN was discontinued and. She was initially on a dysphagia diet but this was eventually advanced to regular. Hospital course was also complicated by proteus UTI (s/p ceftriaxone course), constipation, and severe physical deconditioning. She was discharged to [facility] on 03/28/2022. Relevant Imaging/Procedures Performed: MR Head w/wo contrast 03/08/2022 IMPRESSION 1. No acute intracranial pathology. 2. Chronic findings, as above. MR Cervical Spine w/wo contrast 03/08/2022 IMPRESSION No acute findings in the cervical spine. MR Lumbar Spine w/wo contrast 03/07/2022 IMPRESSION ?? 1. No acute findings in the lumbar spine to explain clinically suspected cauda equina syndrome. ?? 2. Mild-moderate lower lumbar spondylosis. ?? 3. Mild spinal stenosis at L4-L5. No high-grade spinal stenosis identified in the lumbar spine. ?? 4. Mild multilevel neuroforaminal stenosis, most conspicuous bilaterally at L5-S1. ?? 5. No fracture or focal aggressive bony lesion identified. No evidence of acute discitis-osteomyelitis. ?? 6. Mild edema in the lower posterior paraspinal musculature, suspicious for strain. Transition of care: [facility] Transition of Care report automatically routed to PCP office on discharge. 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 and seizure disorder: - Continue pregabalin - Outpatient f/u with Neurology Severe protein calorie malnutrition: - Monitor intake while in rehab - Frequent weight checks Results Pending at Discharge: Test results still pending from this admission None Upcoming Appointments Jun 01, 2022 16:00 Follow Up Visit with Brayan Polk MD [facility] (--) [address] [facility] [address] Follow-up appointments and procedures Amb Consult/Follow Up Primary Care Physician [place] [facility] Reason for Request: F/u hospital admission Authorizing Provider: Jv Kessler MD Amb Consult/Follow Up Neurology Reason for Request: F/u hospital admission for encephalopathy 2/2 AEDs Authorizing Provider: Jv Kessler MD I personally spent >30 minutes reviewing the chart, evaluating and examining the patient, and counseling and preparing the patient for discharge . documented in this encounter Discharge Instructions * Discharge Instr - Diet* Keri Mcghee - 03/28/2022 11:38 EDT Pt enjoys Boost Breeze orange with each meal. Diet advanced to regular on 03/28 after being on a dysphagia diet. Pt is looking forward to added textures. Specially, cereal w/ milk, sandwiches, pizza and snack foods like cracker and cookies. Pt benefits from encouragement with meals and enjoy variancewith foods. Common requests include boost breeze orange, strawberry yogurt, lasagna, and spaghetti w/ meatballs. Keri Mcghee Astronomy Teacher [phone] documented in this encounter Medications at Time [...] Tabs by mouth every 6 hours. 07/14/2020 04/02/202 4 aspirin chewable 81 mg tablet Take [...] BOTH EYES FOUR TIMES DAILY 02/04/2022 4 lactulose (CHRONULAC) 10 gram/15 mL solution TAKE 15 ML BY MOUTH EVERY DAY NEEDED 11/16/2020 4 melatonin 5 mg tablet Take 2 Tablets by mouth at bedtime. 4 ondansetron (ZOFRAN-ODT) 4 mg disintegrating tablet Take 1 Tablet by mouth every 8 hours as needed for Nausea. 10 Tablet 02/25/2022 4 polyethylene glycol (MIRALAX) 17 gram/dose powder Take 17 g by mouth daily. 510 g 03/31/2020 4 pregabalin (LYRICA) 100 mg capsule Take 1 capsule by mouth 2 times daily. Daily Max: 200 mg 60 capsule 03/28/2022 2 propRANolol (INDERAL) 10 mg tablet TK 1 T PO Q 8 H OES PRN 08/09/2020 3 senna (SENOKOT) 8.6 mg tablet Take 1 Tab by mouth 2 times daily as needed (Constipation) . 03/30/2020 4 documented as of this encounter Ordered Prescriptions Prescription Sig Dispense Quantity Refills Last Filled Start Date End Date metoclopramide HCl (REGLAN) 5 mg tablet Take 1 Tablet by mouth 3 times daily before meals. 90 Tablet 03/28/2022 pregabalin (LYRICA) 100 mg capsule Take 1 capsule by mouth 2 times daily. Daily Max: 200 mg 60 capsule 03/28/2022 2 dronabinoL (MARINOL) 2.5 mg capsule Take 1 capsule by mouth 2 times daily before lunch and dinner. Daily Max: 5 mg 60 capsule 1 03/28/2022 4 pregabalin (LYRICA) 100 mg capsule Take 1 capsule by mouth 2 times daily. Daily Max: 200 mg 60 capsule 03/28/2022 2 dronabinoL (MARINOL) 2.5 mg capsule Take 1 capsule by mouth 2 times daily before lunch and dinner. Daily Max: 5 mg 60 capsule 1 03/28/2022 2 buPROPion (WELLBUTRIN SR) 200 mg SR tablet Take 1 Tablet by mouth daily. 30 Tablet 1 03/29/2022 4 documented in this encounter Discharge Disposition Disposition Code Departure Means Destination Rehab Facility documented in this encounter Progress Notes * Vanessa Guevara OT - 03/28/2022 1417 EDT [facility] [place] Occupational Therapy Discontinue/Discharge Note Date: 03/29/2022 SUBJECTIVE: None OBJECTIVE: The patient has been discharged from the hospital. Please refer to the last Occupational Therapy Progress Note for details. ASSESSMENT: Unable to assess her current status as the patient was not seen for any additional therapy sessions. GOALS: All goals discontinued. PLAN: Discontinue occupational therapy. Vanessa Guevara OT 03/29/2022 9:55 * Estela Ho SLP - 03/28/2022 1417 EDT [facility] Speech-Language Pathology Discharge Not Seen Summary [employer] Diagnosis: Dysphagia, oropharyngeal phase: Medical Diagnosis: Altered mental status, UTI Date of Onset: 03/07/22 Date of Referral: 03/28/22 Referring Provider: Yung Henderson MD Date of evaluation: 03/08/22 CURRENT STATUS Current Diet: Regular, thin liquid Functional Communication Status: Functional, Baseline expressive/receptive aphasia THERAPY TO DATE: Dietary modification and compensatory strategy development to ensure safe swallowing. Patient discharged prior to receiving therapy Please refer to last treatment note for patient's status and progress toward goals. PLAN OF CARE Discharge Disposition: [facility] Recommendations: Discontinue [employer] intervention for dysphagia management. * Mary Abdi, PT - 03/28/2022 1417 EDT [facility] Physical Therapy Discontinue/Discharge Note Date: 03/29/2022 SUBJECTIVE: None OBJECTIVE: The patient has been discharged from the hospital. Please refer to the last Physical Therapy Progress Note for details. ASSESSMENT: Unable to assess her current status as the patient was not seen for any additional therapy sessions. GOALS: All goals discontinued. PLAN: Discontinue physical therapy. MARY ABDI, JUWAN 03/29/2022 13:17 * Caren Gorman - 03/28/2022 1128 EDT Patient is being discharged today via ambulance to [facility]. CM spoke with the patient who agreed with the plan. CM left a VM for her sister and asked for a call back regarding the discharge plan. ED spoke with patients friend Ever who agreed with the plan as well. Patient reported her hope is to get stronger and go home. * Estela Ho, ERIKA - 03/28/2022 1005 EDT [facility] Speech-Language Pathology Encounter Note Date of Onset: 03/07/22 [employer] Diagnosis: Dysphagia, oropharyngeal phase: Medical Diagnosis: Altered mental status, UTI Initial Evaluation Date: 03/08/22 Subjective/Objective Subjective Oh! I know you! Pt alert and oriented today with bright affect. She recognizes this signer from outpatient therapy. Objective Date of Service: 03/28/2022 Time In: 0900 Total Treatment Time: 15 min Intervention: Pt agreeable to trials of toast with butter. She tolerated ~1 tbsp-sized bites with effective and efficient mastication and bolus manipulation. Pt exhibits complete oral clearance for all trials. With thin liquids, pt tolerates sips with no s/s aspiration. She exhibits good timing of s wallow and adequate hyolaryngeal elevation. Goals Progress on goals updated on 03/23/22 -Patient will demonstrate optimum safety and efficiency of swallowing function for highest diet/liquid consistencies as indicated by skilled intervention or radiographically. ??(by date:03/30/22) Continue, currently tolerating regular solid textures with added moisture -Tolerate??thin??liquids without evidence of coughing, choking, throat ??clearing, wet voice, etc...in : 95%(??19/??20) of observed swallows using compensatory swallow strategies with??min??cues. (bydate: 03/30/22) Continue, currently tolerating, assess increased trials -Tolerate??regular??consistency diet without overt s/s of dysphagia in 95??% ( 19??/ 20) of observed swallows using strategies with??min??cues. ??(by date:??03/30/22) Continue, advancing this date tosoft/bite-sized diet -Verbalize compensatory swallow strategies with??min??cues 90% accuracy. (by date:??03/30/22) Continue Patient/Family Education: Topic: Patient/Family education and training was completed today including the role of Speech-Language Pathology and Swallowing strategies. Learner: patient Method of Education: Verbal and Demonstration Barriers to Learning/Education: none Patient: was able to verbalize understanding of information and was able to return demonstration Family: Not present Assessment/Plan Assessment/Clinical Impressions Assessment: Pt has exhibited remarkable improvement with her PO intake and her tolerance of solid consistencies since the start of treatment. Today, pt tolerated highly textured solids with no observable impairment. Pt therefore appropriate for dietary upgrade to regular solids. Pt will likely be appropriate for discharge from [employer] services at the next visit, though she will benefit from one more session to ensure tolerance of dietary upgrade. Plan/Recommendations Discharge from [employer] at next visit if pt exhibits tolerance of regular solids. Current Diet: Regular solids, thin liquids ERIKA NORMAN 03/28/2022 10:06 * Keri Mcghee - 03/28/2022 1000 EDT Nutrition Follow-Up S: Pt was very sleepy. Arcade Attendant informed Pt she would be going to [place] in the afternoon. Pt verbalized understanding. Pt was informed that diet had been upgraded to regular and appeared excited to have no texture limitations. Pt was excited to report they ate a good amount of breakfastand dinner last night. O: Diet Rx: Regular Pertinent Meds: magnesium sulfate, bupropion, marinol, pepcid, lactulose, reglan, lyrica, senna, NaCl Lab Results Component Value Date/Time WBC 6.12 03/28/2022 05:37 HGB 9.1 (L) 03/28/2022 05:37 HCT 27.4 (L) 03/28/2022 05:37 MCV 97 03/28/2022 05:37 NA 135 (L) 03/28/2022 05:37 K 4.0 03/28/2022 05:37 CO2 26 03/28/2022 05:37 CL 103 03/28/2022 05:37 BUN 20 03/28/2022 05:37 CREATININE 0.60 03/28/2022 05:37 GLUCOSEPOC 84 03/26/2022 08:24 CALCIUM 8.8 03/28/2022 05:37 PHOS 4.6 (H) 03/28/2022 05:37 MG 1.5 (L) 03/28/2022 05:37 Wt Readings from Last 8 Encounters: 03/28/22 60.5 kg (133 lb 4.8 oz) 02/22/22 59 kg (130 lb) 02/02/22 57.5 kg (126 lb 12.2 oz) 01/16/21 72.6 kg (160 lb) 09/14/20 79.8 kg (176 lb) 07/27/20 79.8 kg (176 lb) 07/16/20 80 kg (176 lb 4.8 oz) 07/12/20 77.2 kg (170 lb 3.1 oz) Weights Filed This Admission 03/07/22 0915 03/07/22 1244 03/09/22 0538 03/11/22 0539 Weight: 58.1 kg (128 lb) 58.1 kg (128 lb) 60.2 kg (132 lb 11.2 oz) 58.6 kg (129 lb 4 oz) 03/13/22 0555 03/14/22 0622 03/15/22 0525 03/17/22 0536 Weight: 55.9 kg (123 lb 4.8 oz) 59 kg (130 lb 1.1 oz) 59.4 kg (130 lb 14.4 oz) 60.8 kg (134 lb) 03/18/22 0627 03/19/22 0617 03/20/22 0534 03/21/22 0516 Weight: 64.6 kg (142 lb 6.7 oz) 62.5 kg (137 lb 12.6 oz) 60 kg (132 lb 4.4 oz) 63.5 kg (139 lb 15.9oz) 03/22/22 0521 03/23/22 0518 03/24/22 0558 03/25/22 0558 Weight: 63.9 kg (140 lb 14 oz) 64.6 kg (142 lb 6.7 oz) 58.9 kg (129 lb 14.4 oz) 64.1 kg (141 lb 5 oz) 03/26/22 0600 03/28/22 0515 Weight: 58.2 kg (128 lb 4.8 oz) 60.5 kg (133 lb 4.8 oz) PO: > 25% with consistent improvements. Skin: skin color, temperature, turgor normal. No rashes or lesions. GI: Last BM 03/25/22 d/c [place] 03/28/2022 ?? A: 52 y.o. female admitted with UTI, AMS, metabolic encephalopathy, mental status improved able to participate in menu selection. Current principal diagnosis of severe functional decline, severe protein malnutrition. Pt determined to be at high nutritional complexity secondary to hx of poor PO intak e and diagnosis of malnutrition. Meal record endorses improvements in PO intake. Will offer snacks BID will continue Boost Breeze at meals to support adequate intake. Diet advanced to regular, 03/28, will encourage new foods. Will continue to monitor progress with PO intake and encourage daily PO intake. Offer assistance at meals as needed. Current wgt up 2.3 kg x 1 day, up 0.5 kg x 1 week, stable x ~ 2 weeks since admission, continue to monitor. Labs indicate consistent low levels of H/H and improved stable levels of CR and Ca. Mg low, repleated continue to monitor. After stopping CPN, PHOS still high, continue to monitor. Plan: Provide regular diet as ordered -Will offer snacks BID -Will provide Boost Breeze supplement with every meal Pt is appropriate to continue menu assist for meal selection Continue to promote good intake Continue to monitor intake, wgt, labs, skin, bowels, comfort Follow up by 03/30/2022 Keri Mcghee Astronomy Teacher Cosigned by Trish Wilkins RD at 03/28/2022 11:32 EDT Associated attestation - Trish Wilkins RD - 03/28/2022 1132 EDT Agree with documentation and plan of care as written by rn internship. Trish Wilkins RDN, CD * Caren Gorman - 03/27/2022 1543 EDT No local beds offered at this time. CM is waiting to hear from [facility], and BM if they can offer a bed, if they can't this automobile and property underwriter will discuss with patient regarding out of area referrals. CM will follow-up with patient tomorrow. * Jv Kessler MD - 03/27/2022 1512 EDT Medicine Progress Note Service Date: 03/27/22 Admit Date: 03/07/2022 Reason for Admission: 52 y.o. female admitted with a chief complaint of weakness and now with a principal diagnosis of Severe functional decline, severe protein calorie malnutrition. 24 Hour Events: - Reyes placed for persistent urinary retention Subjective/Objective Subjective - Eating her breakfast when I saw her - Says that she is doing well and feeling better continually - Still has numbness in her left leg and left side of her face but she is noticing it less Review of Systems A ten point review of systems was performed. Pertinent positives are listed above, all others are negative. Objective Vital Signs BP 93/63 (BP Cuff Location: Right arm, BP Patient Position: Semi fowlers) Pulse 89 Temp 36.6 ??C (97.8 ??F) (Oral) Resp 15 Ht 170.2 cm (67) Wt 58.2 kg (128 lb 4.8 oz) SpO2 98% BMI 20.09 kg/m?? Physical Exam GEN: alert, cooperative, no distress, appears stated age HEENT: MMM, PERRL, EOMI NECK: Supple, no JVD LUNG: CTA BL, good air movement, no increased work of breathing, on room air CV: RRR, Normal S1/S2, No M/R/G ABD: soft, NT/ND; nl bowel sounds; no rebound or guarding, no organomegaly EXTRM: no edema, extremities warm, no cyanosis SKIN: skin color, temperature, turgor normal. No rashes or lesions. NEURO: Alert, CN 2-12 grossly intact, moving all extremities. Decreased sensation of left leg and left side of face over V2 and V3. No tremor, aphasia, or slurred speech PSYCH: Normal memory, judgment, insight, mood, & effect Medications Reviewed in EPIC Labs Reviewed: BMP: Recent Labs 03/25/22 0554 03/26/22 0607 03/27/22 0609 NA 133* 137 136 K 4.4 4.5 4.6 CL 101 102 100 CO2 25 26 27 BUN 21 20 21 CREATININE 0.37* 0.44* 0.57 MG 1.6* 1.5* 1.8 PHOS 4.8* 5.0* 4.8* Lab Results Component Value Date ALT 492 (H) 03/27/2022 AST 207 (H) 03/27/2022 ALKPHOS 187 (H) 03/27/2022 CBC: Recent Labs 03/25/22 0553 03/26/22 0606 03/27/22 0609 WBC 8.76 7.53 6.50 HGB 9.5* 9.6* 9.3* PLT 303 258 244 Imaging Reviewed: None new Micro None new Assessment/Plan Assessment 52yo F with 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 Clinical condition has improved drastically with changing her AED regimen to pregabalin. Now stable and awaiting discharge to rehab. Plan Acute toxic metabolic encephalopathy with global weakness, severe functional decline: Improving. Suspected due to AED medication reaction/polypharmacy. Unremarkable MRI, EEG, infectious work-up, autoimmune work-up - Neurology guided weaning of AED regimen, now on pregabalin 100 mg BID ?? Severe protein calorie malnutrition: Suspected initially due to ongoing encephalopathy in setting of severe colonic immobility. These acute issues have resolved and her reduced intake appears more behavioral now and influenced by her dislike of a dysphagia diet. If she does not improve intake, sister / guardian was notified that we needed to consider PEG tube placement for feeding while malnutrition and oral intake is managed over the fdc. Patient is refusing a PEG at this time - CPN discontinued - Nutrition appreciated. ?? 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 - Salt tablets BID ?? Transaminitis: Fluctuating, no RUQ symptoms. Likely related to starvation versus CPN. - Daily CMP ?? Complicated Proteus UTI, urinary retention: S/p ceftriaxone course. ?? - Reyes put back in today - Recommend maintaining reyes on discharge and f/u with Urology as an outpatient ?? 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 Constipation: - Continue senna, lactulose increased and suppository added ?? 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 Time spent in review of themedical chart, review of labs, discharge planning, disease counseling and treatment planning with the patient. JV KESSLER MD 03/27/2022 15:12 * Denita Cui MS CCC-[employer] - 03/27/2022 1240 EDT [facility] [place] Speech-Language Pathology Contact Note [employer] currently following patient for Dysphagia. Attempted follow up noon meal but patient had already finished meal. Stated she ate the entire sandwich not interested in additional trials. [employer] will attempt follow up on 03/28/22. DENITA CUI MS CCC-[employer] 03/27/2022 12:40 * Jv Kessler MD - 03/26/2022 1540 EDT Medicine Progress Note Service Date: 03/26/22 Admit Date: 03/07/2022 Reason for Admission: 52 y.o. female admitted with a chief complaint of weakness and now with a principal diagnosis of Severe functional decline, severe protein calorie malnutrition. 24 Hour Events: - CPN discontinued yesterday Subjective/Objective Subjective - Feeling well - Usually eats small amounts of food sporadically and then a big dinner - Says that she ate a normal breakfast for her - Would refuse a feeding tube if recommended Review of Systems A ten point review of systems was performed. Pertinent positives are listed above, all others are negative. Objective Vital Signs BP 98/79 (BP Cuff Location: Right arm, BP Patient Position: Semi fowlers) Pulse 89 Temp 36.6 ??C (97.8 ??F) (Oral) Resp 14 Ht 170.2 cm (67) Wt 58.2 kg (128 lb 4.8 oz) SpO2 97% BMI 20.09 kg/m?? Physical Exam GEN: alert, cooperative, no distress, appears stated age HEENT: MMM, PERRL, EOMI NECK: Supple, no JVD LUNG: CTA BL, good air movement, no increased work of breathing, on room air CV: RRR, Normal S1/S2, No M/R/G ABD: soft, NT/ND; nl bowel sounds; no rebound or guarding, no organomegaly EXTRM: no edema, extremities warm, no cyanosis SKIN: skin color, temperature, turgor normal. No rashes or lesions. NEURO: Alert, CN 2-12 grossly intact, moving all extremities. No tremor, aphasia, or slurred speech PSYCH: Normal memory, judgment, insight, mood, & effect Medications Reviewed in EPIC Labs Reviewed: BMP: Recent Labs 03/24/22 0539 03/25/22 0554 03/26/22 0607 NA 136 133* 137 K 4.1 4.4 4.5 CL 105 101 102 CO2 24 25 26 BUN 18 21 20 CREATININE 0.43* 0.37* 0.44* MG 1.6* 1.6* 1.5* PHOS 4.8* 4.8* 5.0* Lab Results Component Value Date ALT 385 (H) 03/26/2022 AST 143 (H) 03/26/2022 ALKPHOS 171 (H) 03/26/2022 CBC: Recent Labs 03/24/22 0540 03/25/22 0553 03/26/22 0606 WBC 7.22 8.76 7.53 HGB 9.2* 9.5* 9.6* PLT 286 303 258 Imaging Reviewed: None new Micro None new Assessment/Plan Assessment 52yo F with 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 Plan Acute toxic metabolic encephalopathy with global weakness, severe functional decline: Improving. Suspected due to AED medication reaction/polypharmacy. Unremarkable MRI, EEG, infectious work-up, autoimmune work-up - Neurology guided weaning of AED regimen, now on pregabalin 100 mg BID ?? Severe protein calorie malnutrition: Suspected initially due to ongoing encephalopathy in setting of severe colonic immobility. These acute issues have resolved and her reduced intake appears more behavioral now and influenced by her dislike of a dysphagia diet. If she does not improve intake, sister / guardian was notified that we needed to consider PEG tube placement for feeding while malnutrition and oral intake is managed over the fdc. Patient is refusing a PEG at this time - CPN discontinued - Nutrition appreciated. ?? 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 - Salt tablets BID ?? Transaminitis: Fluctuating, no RUQ symptoms. Likely related to starvation versus CPN. - Daily CMP ?? Complicated Proteus UTI, urinary retention: S/p ceftriaxone course. ?? - Continue Reyes ?? 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 Constipation: - Continue senna, lactulose increased and suppository added ?? 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 Time spent in review of themedical chart, review of labs, discharge planning, disease counseling and treatment planning with the patient. JV KESSLER MD 03/26/2022 15:40 * Tayler Hunt, PT - 03/26/2022 1453 EDT [facility] Main [place] Physical Therapy Encounter Note Date of Service: 03/26/2022 SUBJECTIVE: Patient is currently having difficulty with: mobility, activity tolerance, transfers/gait Patient/caregiver states: I'm really tired today. I don't want to stay sitting up in the chair. Subjective Information Reported by: Patient Pain Comments: Patient did not report pain with mobility. OBJECTIVE: Interventions Completed Today: Time: 1043 Total Treatment Time (minutes): 16 Timed Code Treatment Minutes: 16 Therapy Session: A corrective therapy aide was present for the physical therapy session Procedures: Therapeutic activities Therapeutic Activities Minutes: 16 Therapeutic Activities 1: Patient approacehd for PT treatment. Performed supine to sit with CGA to mobilize to EOB. Patient reported very fatigued and did not want to transition to chair. STS at EOB to progress transitional control and motor sequencing. Patient performed with mod/max assist x1 for initial stand. Patinet with reduced proximal control in standing causing patient to move into hip flexion/extension with limited stability. Patient returned to sitting with reduced eccentric control into lowering. Patient grew afraid sitting on close EOB requring mod assist x2 to assist scooting back onto bed. Due to impaired spatial awareness, patient with tendency to lean back increasing risk ofslipping forward. Improved self initiation of mobility with directional cueing based on objects. Patient performed x 2 more repeitions with progression to min/mod assist x1 on final trial. Progression of weightshifting and offloading LEs for pre-gait activities with mod assist x1 in standing. Returned to seating EOB and patietn reporting fatigue. Transitioned to supine with mod/ind. Returned in af ternoon to see patient and patient asleep. Patient Status at the End of the Therapy Session, The patient was left in the: bed with the: Call farris in reach Patient/Family Education: Activity/Work/Community: Importance of out of bed activity Braces and Equipment: Assistive device/technique Mobility, Transfers, and Gait: Functional transfers, Mobility recommendations Recommendations: Discharge recommendations/planning Team Communication Notified: Nurse When: After therapy session, Prior to therapy session By: [id number] communication About: Mobility tolerance. Fatigue. ASSESSMENT: Patient continues to demonstrate progress with mobility training. Limited proximal postural controland functional weakness continues to require physical support to maintain stability in standing. STR continues to be indicated at discharge due to change from functional baseline. Physical Therapy is medically necessary to: address these body structure/function impairments, activity limitations, and participation restrictions, establish and progress mobility/exercise and provide recommendations for staff and safe discharge planning, facilitate return to prior level of function, improve safety and independence Time Frame: 04/02/22 Goal: Pt will perform supine to sit transfer independently Status: Progressing Goal: Pt will transfer sit to stand using RW independently Status: Progressing Comments: Mod assist x1 to RW. Goal: Pt will ambulate 10ft using RW independently Status: Progressing PLAN: Patient/Family Education: Discharge planning, Recommendations, Patient education Recommended Discharge Destination: Subacute rehabilitation Next Session to Include: Gait training, transfer training. Tayler Hunt, PT 03/26/2022 15:12 * Caren Gorman - 03/26/2022 1355 EDT Patient is medically ready tomorrow. Referrals have been sent. CM will check in with rehabs tomorrow to see if anyone is able to offer a bed. * Marifer Lyman - 03/26/2022 1156 EDT Nutrition Follow-Up S: Patient was open to having something small for lunch today. Notes that she had three things at breakfast today. Noted to have a good dinner last night per nursing. O: Diet Rx: Dysphagia 6 (Soft and Bite Sized) with Regular Thin Liquids Meds: marinol, pepcid, lactulose, reglan, senna Lab Results Component Value Date/Time WBC 7.53 03/26/2022 06:06 HGB 9.6 (L) 03/26/2022 06:06 HCT 28.7 (L) 03/26/2022 06:06 MCV 97 03/26/2022 06:06 NA 137 03/26/2022 06:07 K 4.5 03/26/2022 06:07 CO2 26 03/26/2022 06:07 CL 102 03/26/2022 06:07 BUN 20 03/26/2022 06:07 CREATININE 0.44 (L) 03/26/2022 06:07 GLUCOSEPOC 84 03/26/2022 08:24 CALCIUM 8.8 03/26/2022 06:07 PHOS 5.0 (H) 03/26/2022 06:07 MG 1.5 (L) 03/26/2022 06:07 Wt Readings from Last 5 Encounters: 03/26/22 58.2 kg (128 lb 4.8 oz) 02/22/22 59 kg (130 lb) 02/02/22 57.5 kg (126 lb 12.2 oz) 01/16/21 72.6 kg (160 lb) 09/14/20 79.8 kg (176 lb) Weights Filed This Admission 03/07/22 0915 03/07/22 1244 03/09/22 0538 03/11/22 0539 Weight: 58.1 kg (128 lb) 58.1 kg (128 lb) 60.2 kg (132 lb 11.2 oz) 58.6 kg (129 lb 4 oz) 03/13/22 0555 03/14/22 0622 03/15/22 0525 03/17/22 0536 Weight: 55.9 kg (123 lb 4.8 oz) 59 kg (130 lb 1.1 oz) 59.4 kg (130 lb 14.4 oz) 60.8 kg (134 lb) 03/18/22 0627 03/19/22 0617 03/20/22 0534 03/21/22 0516 Weight: 64.6 kg (142 lb 6.7 oz) 62.5 kg (137 lb 12.6 oz) 60 kg (132 lb 4.4 oz) 63.5 kg (139 lb 15.9oz) 03/22/22 0521 03/23/22 0518 03/24/22 0558 03/25/22 0558 Weight: 63.9 kg (140 lb 14 oz) 64.6 kg (142 lb 6.7 oz) 58.9 kg (129 lb 14.4 oz) 64.1 kg (141 lb 5 oz) 03/26/22 0600 Weight: 58.2 kg (128 lb 4.8 oz) PO: Typically 50-100% Refusing some meals/snacks Skin: Blanchable redness buttocks, coccyx GI: Last BM 03/25 A: Patient's CPN was discontinued yesterday. Also started trial of marinol for appetite stimulation. Patient has been demonstrating improvements in PO intakes. Weight recorded today is the same as admission weight. Per MD, patient has expressed that she would refuse a feeding tube at this time. Will continue monitor progress with PO and encourage intakes daily. Plan: -Provide Dysphagia Diet as ordered. Additional texture modifications per FIRE OPERATIONS FORESTER. -Boost Breeze on all meal trays -Visiting patient daily for menu selections -Continue to monitor weight, PO tolerance/intakes, bowels, skin -Monitor lytes and replete as needed given discontinuation of CPN -RD following Marifer Rocha MS, RD, CD, CNSC * Derick Parkinson, Jona Lyon MD - 03/25/2022 1252 EDT Medicine Progress Note Service Date: 03/25/2022 Admit Date: 03/07/2022 8:29 Reason for Admission: 52 y.o. female admitted with a chief complaint of weakness 24 Hour Events/ Subjective/Objective Subjective Going to trial time off CPN. Denies nausea, abdominal pain. In good spirits without complaint. Nursing noted she has been feeling more anxious. Review of Systems A ten point review of systems was performed and was negative except for pertinent positives noted in the HPI Objective Vital Signs Temp: [36.6 ??C (97.9 ??F)-37 ??C (98.6 ??F)] , Heart Rate: [83 BPM-100 BPM] , Resp: [16-20] , BP: (104-123)/(70-85) , SpO2: [97 %] Physical Exam General: sitting in chair, bright appearing, NAD HENT: MMM Abd: soft, NT, ND, NABS Ext: warm, well perfused, no edema Neuro: Alert, patient liaison grossly intact, no focal deficit Labs: Lab Results Component Value Date WBC 8.76 03/25/2022 HGB 9.5 (L) 03/25/2022 HCT 29.6 (L) 03/25/2022 MCV 97 03/25/2022 PLT 303 03/25/2022 Recent Labs 03/23/22 0559 03/24/22 0539 03/25/22 0554 CREATININE 0.45* 0.43* 0.37* BUN 20 18 21 NA 135* 136 133* K 4.5 4.1 4.4 CL 106 105 101 CO2 22 24 25 Lab Results Component Value Date NA 133 (L) 03/25/2022 K 4.4 03/25/2022 CL 101 03/25/2022 CO2 25 03/25/2022 Imaging Reviewed: Results notable for none new. 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 Plan 1. Acute toxic metabolic encephalopathy with global weakness, severe functional decline: Improving.Suspected due to ADD medication reaction/polypharmacy. Unremarkable MRI, EEG, infectious work-up, autoimmune work-up - Neurology guided weaning of AED regimen, now on pregabalin 100 mg BID ?? 2. Severe protein calorie malnutrition: Suspected initially due to ongoing encephalopathy in setting of severe colonic immobility. These acute issues have resolved and her reduced intake appears morebehavioral now and influenced by her dislike of a dysphagia diet. If she does not improve intake, sister / guardian was notified that we needed to consider PEG tube placement for feeding while malnutrition and oral intake is managed over the termite control technician. Today we are halting CPN to see if her appetite tonight and tomorrow is any better. Nutrition appreciated. ?? 3. 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 Salt tablets BID ?? 4. Transaminitis: Improving, no RUQ symptoms. Likely related to starvation versus CPN. ?? 5. Complicated Proteus UTI, urinary retention: S/p ceftriaxone course. Continue Reyes 6. 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 ?? 7. Constipation: Continue senna, lactulose increased and suppository added ?? 8. Anxiety: Continue Wellbutrin ?? 9. Hypokalemia, hypomagnesemia, hypocalcemia: Monitor in setting of CPN, replete as needed ? 10. Oropharyngeal dysphagia: dysphagia diet, advanced somewhat today, [employer]PER[employer] FORESTER appreciated ?? 11. Acid reflux: continue famotidine ?? 12. Severe physical deconditioning: ABDIAZIZ at discharge VTE Prophylaxis Pharmacologic Prophylaxis: Enoxaparin (Lovenox) 40 mg SQ daily Discharge Plan senior living facility/Subacute rehab I spent more than 25 minutes caring for this patient today including >50% of time spent in counseling and coordination of care. Time spent in review of the medical chart, review of labs, discussion with consultants, discharge planning and treatment planning with the patient. Jona Parkinson MD 03/25/2022 12:52 * Jona Gomez MD - 03/24/2022 1344 EDT Medicine Progress Note Service Date: 03/24/2022 Admit Date: 03/07/2022 8:29 Reason for Admission: 52 y.o. female admitted with a chief complaint of weakness 24 Hour Events/ Subjective/Objective Subjective Dysphagia diet advancement has given her more food choices and she is eating a bit better. Also does bettr eating in a chair. Denies nausea, abdominal pain, but noted by nursing to be constipated. Ingood spirits without complaint. Remains on CPN but at reduced dose. Review of Systems A ten point review of systems was performed and was negative except for pertinent positives noted in the HPI Objective Vital Signs Temp: [36.6 ??C (97.8 ??F)-36.7 ??C (98.1 ??F)] , Heart Rate: [99 BPM-103 BPM] , Resp: [16] , BP: (106-126)/(72-81) , SpO2: [95 %-97 %] Physical Exam General: sitting in chair, bright appearing, NAD HENT: MMM CV: regular, no m/r/g. Intact pulses Abd: soft, NT, ND, NABS Ext: warm, well perfused, no edema Neuro: Alert, patient liaison grossly intact, no focal deficit Labs: Lab Results Component Value Date WBC 7.22 03/24/2022 HGB 9.2 (L) 03/24/2022 HCT 28.2 (L) 03/24/2022 MCV 98 03/24/2022 PLT 286 03/24/2022 Recent Labs 03/22/22 0554 03/23/22 0559 03/24/22 0539 CREATININE 0.44* 0.45* 0.43* BUN 20 20 18 NA 135* 135* 136 K 4.7 4.5 4.1 CL 106 106 105 CO2 22 22 24 Lab Results Component Value Date NA 136 03/24/2022 K 4.1 03/24/2022 CL 105 03/24/2022 CO2 24 03/24/2022 Imaging Reviewed: Results notable for none new. 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 Plan 1. Acute toxic metabolic encephalopathy with global weakness, severe functional decline: Improving.Suspected due to ADD medication reaction/polypharmacy. Unremarkable MRI, EEG, infectious work-up, autoimmune work-up - Neurology guided weaning of AED regimen, now on pregabalin 100 mg BID ?? 2. Severe protein calorie malnutrition: Suspected initially due to ongoing encephalopathy in setting of severe colonic immobility. These acute issues have resolved and her reduced intake appears morebehavioral now and influenced by her dislike of a dysphagia diet. If she does not improve intake, sister / guardian was notified that we needed to consider PEG tube placement for feeding while malnutrition and oral intake is managed over the termite control technician. Nutrition appreciated, continue CPN, weaning amount ?? 3. 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 Salt tablets BID ?? 4. Transaminitis: Improving, no RUQ symptoms. Likely related to starvation versus CPN. ?? 5. Complicated Proteus UTI, urinary retention: S/p ceftriaxone course. Continue Reyes 6. 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 ?? 7. Constipation: Continue senna, lactulose increased and suppository added ?? 8. Anxiety: Continue Wellbutrin ?? 9. Hypokalemia, hypomagnesemia, hypocalcemia: Monitor in setting of CPN, replete as needed ? 10. Oropharyngeal dysphagia: dysphagia diet, advanced somewhat today, FI[employer]PER[employer] FORESTER appreciated ?? 11. Acid reflux: continue famotidine ?? 12. Severe physical deconditioning: ABDIAZIZ at discharge VTE Prophylaxis Pharmacologic Prophylaxis: Enoxaparin (Lovenox) 40 mg SQ daily Discharge Plan senior living facility/Subacute rehab I spent more than 25 minutes caring for this patient today including >50% of time spent in counseling and coordination of care. Time spent in review of the medical chart, review of labs, discussion with consultants, discharge planning and treatment planning with the patient and patient's family . Jona Parkinson MD 03/24/2022 13:45 * Shaylee Salazar, RD - 03/24/2022 8515 EDT Nutrition Follow-Up S: Pt was in good spirits and expressed she enjoyed her dinner last night. Pt wanted to order the same lasagna for lunch as she stated she knew she liked it and would eat it. Pt required help to put jelly on jay crackers and stated she was enjoying the new snack. Pt did not eat any lunch, but said she thinks that will give her a better appetite for dinner. Pt expressed that CPN may be influencing lack of appetite. Pt stated she liked sitting by the window this morning and enjoyed getting to use her legs, but reported being very tired this afternoon, too tired to eat despite offer of assitance. O: Diet Rx: Dysphagia 6 (soft/bite-sized with thin liquids) CPN RX: 890 kcal at 52 mL/hr, 62 g protein total Pertinent Meds: bupropion, lactulose, metoclopramide (IV), lyrica, senna, NaCl Lab Results Component Value Date/Time WBC 7.22 03/24/2022 05:40 HGB 9.2 (L) 03/24/2022 05:40 HCT 28.2 (L) 03/24/2022 05:40 MCV 98 03/24/2022 05:40 NA 136 03/24/2022 05:39 K 4.1 03/24/2022 05:39 CO2 24 03/24/2022 05:39 CL 105 03/24/2022 05:39 BUN 18 03/24/2022 05:39 CREATININE 0.43 (L) 03/24/2022 05:39 GLUCOSEPOC 111 (H) 03/24/2022 05:57 CALCIUM 8.4 (L) 03/24/2022 05:39 PHOS 4.8 (H) 03/24/2022 05:39 MG 1.6 (L) 03/24/2022 05:39 Wt Readings from Last 5 Encounters: 03/24/22 58.9 kg (129 lb 14.4 oz) 02/22/22 59 kg (130 lb) 02/02/22 57.5 kg (126 lb 12.2 oz) 01/16/21 72.6 kg (160 lb) 09/14/20 79.8 kg (176 lb) Weights Filed This Admission 03/07/22 0915 03/07/22 1244 03/09/22 0538 03/11/22 0539 Weight: 58.1 kg (128 lb) 58.1 kg (128 lb) 60.2 kg (132 lb 11.2 oz) 58.6 kg (129 lb 4 oz) 03/13/22 0555 03/14/22 0622 03/15/22 0525 03/17/22 0536 Weight: 55.9 kg (123 lb 4.8 oz) 59 kg (130 lb 1.1 oz) 59.4 kg (130 lb 14.4 oz) 60.8 kg (134 lb) 03/18/22 0627 03/19/22 0617 03/20/22 0534 03/21/22 0516 Weight: 64.6 kg (142 lb 6.7 oz) 62.5 kg (137 lb 12.6 oz) 60 kg (132 lb 4.4 oz) 63.5 kg (139 lb 15.9oz) 03/22/22 0521 03/23/22 0518 03/24/22 0558 Weight: 63.9 kg (140 lb 14 oz) 64.6 kg (142 lb 6.7 oz) 58.9 kg (129 lb 14.4 oz) PO: < 25% Skin: Blanchable redness buttocks, coccyx GI: 03/17/2022 d/c SNF / subacute rehab when medically ready A: 52 y.o. female admitted with UTI, AMS, metabolic encephalopathy, mental status improved able to participate in menu selection. Pt determined to be at high nutritional complexity secondary to hx ofpoor PO intake and diagnosis of malnutrition. NFPE revealed moderate muscle wasting to tops of shoulder and temples. No wasting to clavicle, triceps or scapula, unable to assess the interosseous. Meal records indicate PO < 25%, continue to monitor. Will continue offering snacks BID and Boost Breeze with every meal. RD reiterated importance of good PO for healing, pt verbalized understanding, but expressed lack of appetite. Current wgt down 5.7 kg x 1 day, down 1.9 kg x 1 week, stable x ~ 2 we eks since admission, continue to monitor. Labs indicate consistent low levels of H/H and CR, newly low levels of Ca. Mg low, repleated continue to monitor. PHOS high, but stable may improves after CPN stops, continue to monitor. CPN is currently providing 56% of estimated caloric needs and 89% estimated protein needs. ReceivesBoost Breeze TID on trays consumes about 75% providing about 563 calories and 21 grams of protein per day. CPN plus meal intake, plus Boost Breeze intake likely meeting nutritional needs. Plan to stop TPN after tonight's bag, unclear how much of an impact CPN is making on pts appetite. Diet clearedto dysphagia 6 yesterday 03/23 which increased pts food choices. Will offer snacks BID will continueBoost Breeze at meals to support adequate intake. Continue to encourage good PO offer assistance atmeals as needed. Plan: Provide dysphagias diet 6 as ordered -Will offer snacks BID -Will provide Boost Breeze supplement with every meal Pt is appropriate to continue menu assist for meal selection Continue to promote good intake Continue to monitor intake, wgt, labs, skin, bowels, comfort Follow up by 03/26/2022 Keri Mcghee Astronomy Teacher Agree with nutrition assessment and plan of care as documented. Briefly, pt continues on CPN. Intake varies, mostly 25%, 1x 50%, several refusals including lunch today (did not touch). Concern that pt will not be able to meet needs orally, though at this time unclear how much of a barrier CPN is to intake. Plan to continue tonight's CPN and d/c. Will offer snacks BID to support adequate intake for healing and wgt maintenance, though they appear to be minimally effective so far. Continue to encourage good PO. RD following Shaylee Salazar MS, RD, CD (Please page RD via PAS) * Derick Parkinson, Jona Lyon MD - 03/23/2022 1720 EDT Medicine Progress Note Service Date: 03/23/2022 Admit Date: 03/07/2022 8:29 Reason for Admission: 52 y.o. female admitted with a chief complaint of weakness 24 Hour Events/ Subjective/Objective Subjective Dysphagia diet advanced. Still not eating much. States she wants ' regular' food despite participating in all meal choices. Denies pain in mouth, abdomen, with swallowing. Denies nausea. States she has an appetite. In good spirits without complaint. Remains on CPN but at reduced dose. I raised question of feeding tube if she does not advance amount she is taking in by mouth over the weekend, she i s going to focus on eating more. Review of Systems A ten point review of systems was performed and was negative except for pertinent positives noted in the HPI Objective Vital Signs Temp: [36.4 ??C (97.5 ??F)-37.1 ??C (98.7 ??F)] , Heart Rate: [96 BPM-104 BPM] , Resp: [16] , BP: (102-113)/(65-76) , SpO2: [95 %-98 %] Physical Exam General: sitting up in bed, bright appearing, NAD HENT: MMM CV: regular, no m/r/g. Intact pulses PULM: CTAB Abd: soft, NT, ND, NABS Ext: warm, well perfused, no edema Neuro: Alert, patient liaison grossly intact, no focal deficit Labs: Lab Results Component Value Date WBC 8.33 03/23/2022 HGB 9.3 (L) 03/23/2022 HCT 28.5 (L) 03/23/2022 MCV 99 (H) 03/23/2022 PLT 300 03/23/2022 Recent Labs 03/21/22 0524 03/22/22 0554 03/23/22 0559 CREATININE 0.44* 0.44* 0.45* BUN 16 20 20 NA 136 135* 135* K 4.6 4.7 4.5 CL 107 106 106 CO2 21* 22 22 Lab Results Component Value Date NA 135 (L) 03/23/2022 K 4.5 03/23/2022 CL 106 03/23/2022 CO2 22 03/23/2022 Imaging Reviewed: Results notable for none new. 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 Plan 1. Acute toxic metabolic encephalopathy with global weakness, severe functional decline: Improving.Suspected due to ADD medication reaction/polypharmacy. Unremarkable MRI, EEG, infectious work-up, autoimmune work-up - Neurology guided weaning of AED regimen, now on pregabalin 100 mg BID ?? 2. Severe protein calorie malnutrition: Suspected initially due to ongoing encephalopathy in setting of severe colonic immobility. These acute issues have resolved and her reduced intake appears morebehavioral now; may be influenced by her dislike of a dysphagia diet. If she does not improve intake, I told her and sister / guardian that we needed to consider PEG tube placement for feeding while this is managed over the fdc. Nutrition appreciated, continue CPN, weaning amount ?? 3. 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 Salt tablets BID ?? 4. Transaminitis: Improving, no RUQ symptoms. Likely related to starvation versus CPN. ?? 5. Complicated Proteus UTI, urinary retention: S/p ceftriaxone course. Continue Eryes 6. 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 ?? 7. Constipation: Continue senna, lactulose ?? 8. Anxiety: Continue Wellbutrin ?? 9. Hypokalemia, hypomagnesemia, hypocalcemia: Monitor in setting of CPN, replete as needed ? 10. Oropharyngeal dysphagia: dysphagia diet, advanced somewhat today, [employer]ER appreciated ?? 11. Acid reflux: continue famotidine ?? 12. Severe physical deconditioning: ABDIAZIZ at discharge VTE Prophylaxis Pharmacologic Prophylaxis: Enoxaparin (Lovenox) 40 mg SQ daily Discharge Plan senior living facility/Subacute rehab I spent more than 25 minutes caring for this patient today including >50% of time spent in counseling and coordination of care. Time spent in review of the medical chart, review of labs, discussion with consultants, discharge planning and treatment planning with the patient and patient's family . Jona Parkinson MD 03/23/2022 17:21 * Olivia Frazier OT - 03/23/2022 1642 EDT [facility] Occupational Therapy Contact Note Date of Service: 03/23/2022 Attempted OT, pt busy with phone call, unable to reschedule for later time. Will follow up next business day. OLIVIA FRAZIER OT, 03/23/2022, 16:42 * Shaylee Salazar RD - 03/23/2022 1531 EDT Brief Nutrition Note Pt continues on CPN 52 ml/hr providing 890 kcal/day. PO intake remains limited, bites-10% yesterday, though did consume 25% of bf and lunch today. In good spirits when seen sitting in chair this am, reports it's easier to eat sitting up. Continues to decline need for assistance with meals. States she's tired of the vanilla ice cream but continues to enjoy yogurt for bf and Breeze TID with meals. Diet upgraded to dysphagia 6, interested in trying lasagna for dinner, will provide. Pt continues to provide different reasons for why she isn't eating enough. At times complains of difficulty self feeding but refuses assistance, nursing aware. Will continue to visit daily for menu selection. Appreciate nursing and [employer]ER/OT assistance with intake. Per d/w IDT, pt is medically stable other than nutritional status. Plan to continue CPN thru Saturday, monitor PO tolerance with increased diet texture (and hence increased variety). Encourage out of bed for meals, provide cues/assistance as needed to maximize PO intake. Continue CPN and diet as ordered. RD following Shaylee Salazar MS, RD, CD * Mercedes Deluan - 03/23/2022 1512 EDT Pt remains medically active. Plan is to wean pt off CPN over the weekend. Pt could potentially be medically ready for discharge on Saturday. SNF packet started and referrals made locally. Spoke with pt's sister/guardian Beverly who is in agreement with this plan. She said pt went to [facility] once before in the [place] area, but hopes she can go somewhere locally. She verbalized understanding that while CM will try to honor family's wishes, out of area referrals will have to be made if a local bed is not available. Beverly will be back in town on Saturday and agrees to touching base with CM at this time. * Susana Stewart - 03/23/2022 1236 EDT [facility] Speech-Language Pathology Progress Note Date of Onset: 03/07/22 [employer] Diagnosis: Dysphagia, oropharyngeal phase: Medical Diagnosis: Altered mental status, UTI Initial Evaluation Date: 03/08/22 Subjective/Objective Subjective But it's fun when [employer]ESTER said peanut butter was tricky for her; It's the same thing every day and I'm just getting tired of it regarding food Objective Date of Service: 03/23/2022 Time In: 1215 Total Treatment Time: 30min Intervention: Pt seen in recliner during lunch. Pt has tray in front of her but expresses disinterest in the meal. Agreeable to trials of jay crackers with peanut butter and jelly and thin liquids. Jay cracker with peanut butter characterized by slow/ineffective mastication, labial escape past the [place] border, prolonged bolus hold, effortful swallow, and remaining oral residue. [employer]ER encourages sips of thin liquid to clear but pt states she isn't ready for it yet. Trials of jay cracker with jelly characterized by prolonged mastication, mild labial escape, effortful swallow, andremaining oral residue cleared with additional sips of thin liquid. No dysphagic symptoms observed d uring trials of thin liquid, and no s/s of airway compromise observed throughout session. Pt expresses desire to return to previous diet, [employer]ER educates on risks of eating foods that she cannot tolerate at this time. Pt reports friend is visiting her later and bringing food, unable to specify what kind of food. [employer]ER reminds pt of diet management and compensatory strategies to keep in mind while friend is visiting. The patient seen for a total of 2 sessions since last progress note. Please see encounter notes fordetails. Goals Progress on goals is as follows (for progress notes): -Patient will demonstrate optimum safety and efficiency of swallowing function for highest diet/liquid consistencies as indicated by skilled intervention or radiographically. ??(by date:03/23/22) Continue, currently tolerating regular solid textures with added moisture -Tolerate??thin??liquids without evidence of coughing, choking, throat ??clearing, wet voice, etc...in : 95%(??19/??20) of observed swallows using compensatory swallow strategies with??min??cues. (bydate: ) Continue, currently tolerating, assess increased trials -Tolerate??regular??consistency diet without overt s/s of dysphagia in 95??% ( 19??/ 20) of observed swallows using strategies with??min??cues. ??(by date:??03/23/22) Continue, advancing this date to soft/bite-sized diet -Verbalize compensatory swallow strategies with??min??cues 90% accuracy. (by date:??03/23/22) Continue Patient/Family Education: Topic: Patient/Family education and training was completed today including the role of Speech-Language Pathology, results of today's exam/recommendations, rehab goals and compensatory strategies for safe and effective swallow. Learner: patient Method of Education: Verbal Barriers to Learning/Education: patient's inability to learn/carry over information at this time and pt's level of cognitive-linguistic functioning Patient: needs further instruction and education Family: n/a Assessment/Plan Assessment/Clinical Impressions Assessment: Pt continues with oropharyngeal dysphagia characterized by symptoms of swallowing difficulty with regular dry textures (jay cracker with peanut butter), including slow/ineffective mastication, labial escape past the [place] border, prolonged bolus hold, effortful swallow, and remaining oral residue. Trials of regular texture with added moisture (jay cracker with jelly) reduces dysphagic symptoms, characterized by prolonged mastication, mild labial escape, effortful swallow,and remaining oral residue cleared with additional sips of thin liquid. No s/s of airway compromiseobserved during any trials this date. Given pt's disinterest in current diet and ability to tolerate advanced textures with added moisture, feel pt is appropriate for diet advancement to Dysphagia 6:soft/bite-sized with thin liquids. Will continue to benefit from [employer]ER intervention to monitor diet management and offer/cue compensatory strategies, and educate regarding safe and effective swallow. Plan/Recommendations Upgrade diet. Added moisture to meals (e.g., gravies, sauces, etc.) where possible Reminders to take additional sips of liquid as needed Current Diet: Dysphagia 6 (soft/bite-sized with thin liquids) Susana Stewart 03/23/2022 12:36 Cosigned by Denita Cui MS CCC-[employer]ESTER at 03/23/2022 15:14 EDT Associated attestation - Denita Cui MS CCC-SLP - 03/23/2022 1514 EDT DENITA CUI MS CCC-[employer]ESTER was present throughout the entire session and directed the care of the patient by the therapy student. MS WILY MCGEE 03/23/2022 15:14 * Yohana Vazquez RN - 03/22/2022 1925 EDT Data: Pt admitted w/ AMS and metabolic encephalopathy. Pt alert, oriented to person only. Pt w/ occasional difficulty w/ word finding and memory. Pt denies pain. Pt c/o heartburn this afternoon. Reyes in place, patent and draining. PO intake still minimal. R double lumen PICC in place. Action: CPN rate decreased to 52 mL/hr, running into PICC purple lumen. Tums given x1. Pt moving self around in bed. Pt OOB to chair for a few hours this shift. Providing assistance w/ meals as needed. Dysphagia diet continued, Q4 neuro checks maintained. Meds taken whole, one or two at a time in applesauce. PICC dressing changed by IV therapy. Sodium tablet frequency decreased per orders. Response: Pt tolerating being in chair well, excited to be OOB. Pt not interested in eating but tolerating CPN. Pt reports relief w/ tums. Pt making needs known. Pt resting in bed att. Yohana Vazquez RN 03/22/2022 19:25 * Shaylee Salazar, STIVEN - 03/22/2022 1625 EDT Brief Nutrition Note Pt seen this am, reports eating a little bit of everything at bf, enjoyed it but continues to struggle with self feeding. Participated in menu selection at lunch, improved affect per rn internship.Sleeping soundly this afternoon. PO intake remains limited, consumed 50% of small dinner yesterday, 10% of bf today despite saying she enjoyed it. Does endorse small appetite. Today c/o pain r/t reflux, scheduled famotidine and prn tums noted. Also c/o difficulty self feeding, assist with meals prn. Pt reports different reasons for limited PO, though is somewhat of a vague historian and conversation limited by aphasia. Pt does report friend is going to bring in favorite foods which she is excited for. Pt receptive to suggestion of snack but prefers snack type foods (cheese and crackers, chips, pretzels etc) which are not permitted on her dysphagia diet. Not interested in trying ice cream, cottage cheese or yogurt for snacks. CPN reduced to 52 ml/hr today, monitor tolerance, affect on appetite/intake. RD following Shaylee Salazar MS, RD, CD * Jona Gomez MD - 03/22/2022 1614 EDT Medicine Progress Note Service Date: 03/22/2022 Admit Date: 03/07/2022 8:29 Reason for Admission: 52 y.o. female admitted with a chief complaint of weakness 24 Hour Events/ Subjective/Objective Subjective Eating better, had a full breakfast. In good spirits without complaint. Remains on CPN but at reduced dose. Review of Systems A ten point review of systems was performed and was negative except for pertinent positives noted in the HPI Objective Vital Signs Temp: [18 ??C (64.4 ??F)-36.4 ??C (97.5 ??F)] , Heart Rate: [88 BPM-108 BPM] , Resp: [16] , BP: (101-123)/(64-77) , SpO2: [95 %-98 %] Physical Exam General: sitting up in bed, bright appearing, NAD HENT: MMM CV: regular, no m/r/g. Intact pulses PULM: CTAB Abd: soft, NT, ND, NABS Ext: warm, well perfused, no edema Neuro: Alert, patient liaison grossly intact, no focal deficit Labs: Lab Results Component Value Date WBC 8.45 03/22/2022 HGB 9.4 (L) 03/22/2022 HCT 29.3 (L) 03/22/2022 MCV 99 (H) 03/22/2022 PLT 305 03/22/2022 Recent Labs 03/20/22 0846 03/21/22 0524 03/22/22 0554 CREATININE 0.41* 0.44* 0.44* BUN 16 16 20 NA 134* 136 135* K 4.8 4.6 4.7 CL 107 107 106 CO2 17* 21* 22 Lab Results Component Value Date NA 135 (L) 03/22/2022 K 4.7 03/22/2022 CL 106 03/22/2022 CO2 22 03/22/2022 Imaging Reviewed: Results notable for none new. 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 Plan 1. Acute toxic metabolic encephalopathy with global weakness, severe functional decline: Improving.Suspected due to ADD medication reaction/polypharmacy. Unremarkable MRI, EEG, infectious work-up, autoimmune work-up - Neurology guided weaning of AED regimen, now on pregabalin 100 mg BID ?? 2. Severe protein calorie malnutrition: Suspected due to ongoing encephalopathy in setting of severe colonic immobility. Nutrition appreciated, continue CPN weaning amount ?? 3. 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 Taper salt tablets ?? 4. Transaminitis: Improving, no RUQ symptoms. Likely related to starvation versus CPN. ?? 5. Complicated Proteus UTI, urinary retention: S/p ceftriaxone course. Continue Reyes 6. 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 ?? 7. Constipation: Continue senna, lactulose ?? 8. Anxiety: Continue Wellbutrin ?? 9. Hypokalemia, hypomagnesemia, hypocalcemia: Monitor in setting of CPN, replete as needed ? 10. Oropharyngeal dysphagia: dysphagia diet, [employer]ESTER appreciated ?? 11. Acid reflux: continue famotidine ?? 12. Severe physical deconditioning: ABDIAZIZ at discharge VTE Prophylaxis Pharmacologic Prophylaxis: Enoxaparin (Lovenox) 40 mg SQ daily Discharge Plan senior living facility/Subacute rehab I spent more than 25 minutes caring for this patient today including >50% of time spent in counseling and coordination of care. Time spent in review of the medical chart, review of labs, discussion with consultants, discharge planning and treatment planning with the patient. Jona Parkinson MD 03/22/2022 16:15 * Aníbal Gee, PT - 03/22/2022 9489 EDT [facility] Physical Therapy Encounter Note Date of Service: 03/22/2022 SUBJECTIVE: Patient is currently having difficulty with: I want to get stronger. Patient/caregiver states: I am happy with the session. OBJECTIVE: Interventions Completed Today: Time: 1400 Total Treatment Time (minutes): 24 Timed Code Treatment Minutes: 24 Procedures: Therapeutic activities Therapeutic Activities Minutes: 24 Therapeutic Activities 1: sitting in bedside chair, goyo was approached for therapy. She was agreeable to scoot to edge unsupported sit posititon and activity for duration. She managed sit to/from stnad with prompts to avoid collapse to seat and for transition actions from sit to stnad and delayed descent. She perofrmed x 7 with ModA1 for transfers. Control was impaired but good efforts given with each attempt. Standing with whe walker was sustained for 3-5 imin each attempt. Stepping in pladfor 5steps B. Single limb stance not stable without UE support and ModA1 support. Patient/Family Education: Fall prevention ASSESSMENT: Patient is cooperative and well motivated. Her stance control is unsafe without heper support. Transition to SNF is indicated at discharge. PLAN: Training: Bed mobility training, Transfer training, Gait training, Neuromuscular re-education, Balance training Interventions May Include: Therapeutic activities, Therapeutic exercise, Self- care/home management,Cognitive function intervention, Standardized cognitive testing Recommended Discharge Destination: Subacute rehabilitation ANÍBAL GEE, JUWAN 03/22/2022 15:33 * Jona Gomez MD - 03/21/20222031 EDT Medicine Progress Note Service Date: 03/21/2022 Admit Date: 03/07/2022 8:29 Reason for Admission: 52 y.o. female admitted with a chief complaint of weakness 24 Hour Events/ Subjective/Objective Subjective States she is feeling quite well today, she is finding more foods that appeal to her. Remains on CPN as she did not eat well yesterday. Has no acute complaints. Review of Systems A ten point review of systems was performed and was negative except for pertinent positives noted in the HPI Objective Vital Signs Temp: [18 ??C (64.4 ??F)-36.5 ??C (97.7 ??F)] , Heart Rate: [71 BPM-102 BPM] , Resp: [12-16] , BP: (108-132)/(68-81) , SpO2: [96 %-98 %] Physical Exam General: sitting up in bed, bright appearing, NAD HENT: MMM CV: regular, no m/r/g. Intact pulses PULM: CTAB Abd: soft, NT, ND, NABS Ext: warm, well perfused, no edema Neuro: Alert, patient liaison grossly intact, no focal deficit Labs: Lab Results Component Value Date WBC 7.31 03/21/2022 HGB 9.2 (L) 03/21/2022 HCT 28.6 (L) 03/21/2022 MCV 99 (H) 03/21/2022 PLT 284 03/21/2022 Recent Labs 03/20/22 0535 03/20/22 0846 03/21/22 0524 CREATININE 0.47* 0.41* 0.44* BUN 13 16 16 NA 133* 134* 136 K 5.7* 4.8 4.6 CL 107 107 107 CO2 21* 17* 21* Lab Results Component Value Date NA 136 03/21/2022 K 4.6 03/21/2022 CL 107 03/21/2022 CO2 21 (L) 03/21/2022 Imaging Reviewed: Results notable for none new. 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 Plan 1. Acute toxic metabolic encephalopathy with global weakness, severe functional decline: Improving.Suspected due to ADD medication reaction/polypharmacy. Unremarkable MRI, EEG, infectious work-up, autoimmune work-up - Neurology guided weaning of AED regimen, now on pregabalin 100 mg BID ?? 2. Severe protein calorie malnutrition: Suspected due to ongoing encephalopathy in setting of severe colonic immobility. Nutrition appreciated, continue CPN for now, start weaning tomorrow as oral intake is picking up. ?? 3. 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 Continue salt tablets and wean ?? 4. Transaminitis: Improving, no RUQ symptoms. Likely related to starvation versus CPN. ?? 5. Complicated Proteus UTI, urinary retention: S/p ceftriaxone course. Continue Reyes 6. 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 ?? 7. Constipation: Continue senna, lactulose ?? 8. Anxiety: Continue Wellbutrin ?? 9. Hypokalemia, hypomagnesemia, hypocalcemia: Monitor in setting of CPN, replete as needed ? 10. Oropharyngeal dysphagia: dysphagia diet, [employer]ESTER appreciated ?? 11. Acid reflux: continue famotidine ?? 12. Severe physical deconditioning: ABDIAZIZ at discharge VTE Prophylaxis Pharmacologic Prophylaxis: Enoxaparin (Lovenox) 40 mg SQ daily Discharge Plan senior living facility/Subacute rehab I spent more than 35 minutes caring for this patient today including >50% of time spent in counseling and coordination of care. Time spent in review of the medical chart, review of labs, discussion with consultants, discharge planning, disease counseling and treatment planning with the patient. Jona Parkinson MD 03/21/2022 20:33 * Olivia Frazier, OT - 03/21/2022 1816 EDT [facility] [place] Occupational Therapy Encounter Note Date of Service: 03/21/2022 SUBJECTIVE: Patient is currently having difficulty with: self care Patient/caregiver states: I liked that OBJECTIVE: Interventions Completed Today: Time: 6601-9995 Total Treatment Time (minutes): 42 Timed Code Treatment Minutes: 42 Procedures: Self-care/home management Self-Care/Home Management 1: Pt prompted to sit EOB/transfer to bedside chair for lunch. Pt agreed initially, then wanted to sit EOB to eat. Pt transitioned supine to sit with cues, min A, cues againto scoot to edge. Pt able to self support, indep with static sit. Set up meal tray. Assisted pt with opening cap on Boost drink, loosened cap and cued to switch hands to hold drink in right, open with left. Pt was then able to pour drink into dysphagia cup with min guidance, hold cup with both hands, with min A initially and bring to mouth. Pt managed liquid well, no coughing. Pt trialed an egg sandwich, attempting to lift up with hands, but with decreased gauging of pressure , but able to takesmall bite. Noted pt struggling some with second bite with this technique and prompted to take a drink. Then removed top piece of bread and cut up into pieces, cueing pt then to use fork with built up handle. Pt was then able to bring the smaller bites up with the fork and seemed to manage the bites more easily. Self-Care/Home Management 2: At end of meal, pt assisted with transfer to bedside chair. Pt was fearful of standing with the walker and needed max A for sit to stand, mod A for brief stand before sitting abruptly back onto bed. Pt was then assisted to the bedside chair with squat pivot technique, max A. Pt scooted back in the chair with cues and CGA. Patient/Family Education: Activity/Work/Community: Activity modification Mobility, Transfers, and Gait: Functional transfers Recommendations: Feeding techniques Team Communication Notified: Primary speech-language pathologist When: After therapy session About: pt's response to meal, ability to feed self ASSESSMENT: Pt did well with meal and was very pleased with her ability to feed herself and that she liked the food. Pt's friend, Ever, arrived during session and pt very happy to see him. He described that pt atbaseline is quite independent with her self care activities and mobility, but had been declining just prior to coming to the hospital. Pt continues to improve with activity tolerance and functional gains, but remains weak in general with impaired mobility and rehab continues to be appropriate for discharge. PLAN: Next Session to Include: UE strengthening, coordination activities, ADL training OLIVIA FRAZIER OT, 03/21/2022, 18:20 * Yohana Vazquez RN - 03/21/2022 3470 EDT Data: Pt admitted w/ AMS and metabolic encephalopathy. Pt alert this shift, oriented to self only. Pt has difficulty with word finding and speaks slowly. Pt denies pain but reported heartburn this evening. Pt continues to have poor PO intake. Reyes in place, patent and draining. Pt with intermittent tachycardia. R double lumen PICC in place. Pt with Mg of 1.4 this shift. Action: Telemetry monitoring in place, showing NSR. CPN running at 65.4 mL/hr per orders. Tums given x1. Q2 turns maintained. Pt worked w/ PT and OT this shift. Pt OOB to chair. Providing assistance w/ feeds as needed. Dysphagia diet in place. Pills taken whole, one at a time in applesauce. Q4 neuro checks maintained. IV Mg given per orders. Response: Pt tolerated getting OOB to chair well, much stronger than she has been in the past few days. PO intake minimal but pt tolerating. PT tolerating CPN. Pt reports relief from heartburn w/ tums. Pt able to assist w/ hygiene and feeds more today. Pt resting in bed att. Call farris within reach,pt making needs known. Yohana Vazquez RN 03/21/2022 17:46 * Tayler Hunt, PT - 03/21/2022 7292 EDT [facility] Main [place] Physical Therapy Encounter Note Date of Service: 03/21/2022 SUBJECTIVE: Patient is currently having difficulty with: Mobility, activity tolerance Patient/caregiver states: It was so great to sit up here today. It's been a good day. Patient and Caregiver Goals: Improve mobility. Subjective Information Reported by: Patient Pain Comments: No pain endorsed with mobility assessment. OBJECTIVE: Interventions Completed Today: Time: 1405 Total Treatment Time (minutes): 15 Therapy Session: A corrective therapy aide was present for the physical therapy session Therapeutic Activities Minutes: 15 Therapeutic Activities 1: Patient seen for progression of functional transfers. Found sitting up inrecliner and requesting to get back into bed. STS to RW with min/mod assist x2. Cueing for hand placement in RW. Stand-step pivot with RW to bed with support on pelvis to maintain stability due to reduced proximal strength. Dysmetria and imparied motor control noted with stepping pattern and LE placement but able to follow directional cues towards various objects, ie saying step towards bed vs step backwards. Mod assist x1 to stbailize in standing with CG support of rn rehab for safety. Returned to supine wtih supervision and cueing for movement direction. Mod assist x2 to scoot up in bed. Patient Status at the End of the Therapy Session, The patient was left in the: bed with the: Call farris in reach Patient/Family Education: Braces and Equipment: Assistive device/technique Mobility, Transfers, and Gait: Functional transfers, Mobility recommendations Team Communication Notified: Nurse When: After therapy session By: [id number] communication About: Mobility improvement. Transfer recommendations continued assist x 2 due to stability/motor control deficits. ASSESSMENT: Patient demonstrated good progress of mobility performance with progression of stand pivot transferwith reduced physical assist required to maintain stability and improved tolerance of weightbearing. Patietn continues to be impacted by global functional weakness and reduced tolerance but is makingprogress slowly. Skilled PT intervention continues to be indicated to progress mobility performancetowards patient goals; STR indicated at DC due to level of assist required at this time to perform mobility safely and inability to ambulate. Physical Therapy is medically necessary to: address these body structure/function impairments, activity limitations, and participation restrictions, establish and progress mobility/exercise and provide recommendations for staff and safe discharge planning, improve safety and independence, provide family/caregiver education to assist the patient PLAN: Recommended Discharge Destination: Subacute rehabilitation Next Session to Include: Gait training. Tayler Hunt PT 03/21/2022 17:21 * Denita Cui, MS [facility]-[employer] - 03/21/2022 1322 EDT [facility] Speech-Language Pathology Contact Note [employer] currently following patient for Dysphagia. Notified by dietitian that pt would really like to have a sandwich. [employer] unable to see patient this date, but modification made to diet order to allow soft salad sandwich without crust as a trial. OT followed up with patient at noon meal and reported patient seemed to tolerate this change if sandwich cut up into small pieces. Based on this informationand previous 2 sessions with client feel she will tolerate diet modified to permit soft salad sandwiches, open faced, cut up into small pieces. Modified in diet order and MD notified of change. [employer] unable to see patient due to schedule conflicts and outpatient caseload. Will follow up later this week. DENITA CUI, CCC-[employer] 03/21/2022 13:23 * Tiana Del Rio, AZALEA - 03/21/2022 0325 EDT Pt a+ox1, admitted w/ AMS And metabolic encephalopathy. No events to report over night, slept well.No c/o pain. Q4 neuros, WNL for baseline. Tele monitoring, ST and NSR. Bed bound, Q2hr T/R. R PICC,running CPN @ 65.3ml/hr, CDI. Dysphagia diet, x1 assist w/ feeding, pills x1 at a time w/ apple sauce. Hbg trending down at 8.6. Plan to go to rehab when medically stable. Bed alarm on for safety, call light in reach, rings appropriately, resting comfortably at this time. * Shaylee Salazar RD - 03/20/2022 1800 EDT Brief Nutrition Note Pt continues on CPN, dysphagia 5 diet with thin liquids. Has been doing well with bf, refused dinner and lunch yesterday. States alternately that food doesn't taste right, or that she was in a bad place and couldn't eat. Told nursing last night we are sending foods she doesn't like, though she participates in menu selection. Today requested familiar foods, foods that look normal to her, though this is complicated by texture modification. Is taking most of [place] TID. Will continue to visit daily for menu selection. Rec continue CPN without lipid at this time. Continue to encourage good PO. Will follow. Shaylee Salazar MS, RD, CD * Yohana Vazquez RN - 03/20/2022 1752 EDT Data: Pt admitted with AMS and metabolic encephalopathy. Pt alert and oriented to self only. Pt with difficulty finding words and expressing what she's feeling occasionally. Pt denies pain. Pt reporting heartburn this afternoon. Pt with poor PO intake, however pt eating more today than in days past. Pt unable to move/ambulate but shifting herself around in bed occasionally. Reyes in place, patentand draining. Pt intermittently tachycardic into 120s/130s this shift. Pt w/ R double lumen PICC. Action: Telemetry monitoring in place. CPN administered, running at 65.3 mL/hr. Tums given x1 for heartburn. Q2 turns maintained when pt not moving self. Assisting pt with feeds as needed d/t poor dexterity. Pt taking pills whole, one at a time in applesauce or pudding. Pt on dysphagia diet. Q4 neuro checks maintained. Response: Pt making needs known, ringing call farris appropriately. Bed alarm in place. Pt toleratingCPN and PO intake this shift. Bed alarmed. Pt reports relief w/ tums. Pt resting in bed watching TVatt. Yohana Vazquez RN 03/20/2022 17:53 * Nayely Bridges MBBS - 03/20/2022 1750 EDT Medicine Progress Note Service Date: 03/20/2022 Admit Date: 03/07/2022 8:29 Reason for Admission: 52 y.o. female admitted with a chief complaint of altered mental status and now with a principal diagnosis of toxic metabolic encephalopathy. 24 Hour Events: No acute events overnight. Needed redraw of labs due to contamination with CPN. Subjective/Objective Subjective Patient continues to improve, mental status andrew. She reports getting nervous from time to time about her recovery. When asked about p.o. intake, she states that she is trying however food does not taste good yet. Denies any new pain complaints. Review of Systems A 10 point review of systems was performed, pertinent positive and negative findings documented above, remaining are negative. Objective Vital Signs Temp: [36.4 ??C (97.5 ??F)-37 ??C (98.6 ??F)] , Heart Rate: [91 BPM-102 BPM] , Resp: [16-18] , BP: (105-127)/(67-81) , SpO2: [97 %-98 %] Physical Exam General: Chronically ill-appearing Lungs: Clear to auscultation bilaterally Heart: S1, S2 heard. No murmurs Abdomen: Soft, nontender, nondistended. Positive bowel sounds Extremities: No peripheral edema. Distal pulses + Neuro: Alert and oriented to self. Expressive aphasia. Moving all 4 extremities Psych: Cooperative, calm Medications Reviewed: No new changes Labs Reviewed: Sodium 134, potassium 4.8, creatinine 0.41 Imaging Reviewed: No new imaging Assessment/Plan Assessment Ms. 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 Plan #Acute toxic metabolic encephalopathy with global weakness, severe functional decline: Suspected due to ADD medication reaction/polypharmacy. Neuroimaging i.e. MR head and neck did not show any acuteabnormalities. EEG 03/14 without any active seizure activity. Infectious work-up i.e. Lyme's, HIV, hep C negative. Autoimmune work-up negative as well. Appreciate neurology input. Discontinued/weaned [employer] AED regimen, started on pregabalin for seizure control, titrated up to 100 mg twice daily per recommendations. Overall mental status has improved, continue to monitor closely. If has recurrent worsening, will need further work-up i.e. LP/transferred to [facility] neurology service. #Severe protein calorie malnutrition: Suspected due to ongoing encephalopathy in setting of severe colonic immobility. Appreciate nutrition consult. Continue CPN until patient has reliable p.o. intake. #Acute on chronic symptomatic hyponatremia: Improving. 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 Continue salt tablets and monitor daily levels. No further fluid restriction needed. #Transaminitis: Fluctuating, no RUQ symptoms. Likely related to starvation versus CPN. Monitor. #Complicated Proteus UTI, urinary retention: S/p ceftriaxone course. Continue Reyes for retention. 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 Restarted [employer] apixaban 2.5 mg twice daily. DC'd [employer] AED regimen due to above, currently on pregabalin for seizure prophylaxis. #Constipation: Continue senna, lactulose #Anxiety: Continue [employer] Wellbutrin #Hypokalemia, hypomagnesemia, hypocalcemia: Monitor in setting of CPN, replete as needed #Sinus tachycardia: Suspected due to electrolyte imbalance. Repleted magnesium, responded well to metoprolol. Will continue, DC [employer]ERK propranolol. Monitor on telemetry. #Oropharyngeal dysphagia: Likely secondary to ongoing encephalopathy, appreciate [employer] input #Acid reflux: Started on famotidine #Severe physical deconditioning: Appreciate PT, OT involvement, she will eventually need subacute rehab FEN: Dysphagia diet, CPM CODE STATUS: Full VTE Prophylaxis: On apixaban Consults: Neurology, [employer] Discharge plan: TBD SUSAN Dawn 03/20/2022 17:50 * Denita Cui, MS [facility]-[employer] - 03/20/2022 0904 EDT [facility] Main [place] Speech-Language Pathology Encounter Note Date of Onset: 03/07/22 [employer] Diagnosis: Dysphagia, oropharyngeal phase: Medical Diagnosis: Altered mental status, UTI Initial Evaluation Date: 03/08/22 Subjective/Objective Subjective I just..I, oh, I am, she's going to talk to me, she will help me. I don't eat this. She will find out. Trying to explain that she will be meeting with the dietitian to determine what foods she likes so that she may eat more. I am trying to eat. I will eat that and that. Indicating yogurt and Boost. Smiling, pleasant, recalls this signer from previous date. Objective Date of Service: 03/20/2022 Time In: 0840 Total Treatment Time: 23 min Intervention: AM meal. Patient lying in bed with tray in front of her. Pt attempting to self feed. Reports difficulty holding and manipulating spoon. Pt assisted to reposition herself in bed and HOB raised to position near 90 degrees. Pt requested assist to eat yogurt. [employer] provided spoonfuls of yogurt. After each swallow noted residual on posterior lingual surface. Pt able to clear with repeat swallow. With smaller mouthfuls, reduced residual. Completed entire container of yogurt and most of applesauce. Pt did take a bite of egg but refused additional. Greater oral residual noted with egg. Agreeable to taking sips of Boost without notable s/s of airway compromise. Pt left sitting up in bed with call light in reach and watching television. Goals -Patient will demonstrate optimum safety and efficiency of swallowing function for highest diet/liquid consistencies as indicated by skilled intervention or radiographically. ??(by date:03/23/22) -Tolerate??thin??liquids without evidence of coughing, choking, throat ??clearing, wet voice, etc...in : 95%(??19/??20) of observed swallows using compensatory swallow strategies with??min??cues. (bydate: ) -Tolerate??regular??consistency diet without overt s/s of dysphagia in 95??% ( 19??/ 20) of observed swallows using strategies with??min??cues. ??(by date:??03/23/22) -Verbalize compensatory swallow strategies with??min??cues 90% accuracy. (by date:??03/23/22) Patient/Family Education: Topic: Ongoing education provided to patient/family regarding Role of [employer] Dysphagia. Learner: patient Method of Education: Verbal Barriers to Learning/Education: patient's inability to learn/carry over information at this time Patient: needs further instruction and education Family: not present Assessment/Plan Assessment/Clinical Impressions Assessment: Pt continues with oropharyngeal dysphagia characterized by reduced mastication of solidtextures, remaining oral residue which was cleared with repeat swallow or additional sips of thin liquid. Pt requested assist with feeding this date due to difficulty manipulating spoons. Pt benefitsfrom compensatory strategy of additional sips of thin liquid to clear residuals and is implementingtechnique independently. Given memory deficits, pt still requires reminders and cueing during meals. Feel pt should maintain current diet due to difficulty adequately clearing purees and minced texture egg. Pt will continue to benefit from [employer] intervention to monitor diet management and offer additional compensatory strategies as needed. Plan/Recommendations Try increased textures that have added moisture such as moistened cereal, jay cracker, meat withgravy, etc Current Diet: Dysphagia 5, Thin liquid DENITAEARLE CUI, MS CCC-[employer] 03/20/2022 9:05 * Tiana Del Rio, RN - 03/20/2022 0545 EDT Pt a+ox3, admitted w/ AMS and metabolic encephalopathy. No events t oreport overnight. Mental status continues to improve. No c/o pain overnight, slept well. Q4 neuro assessment, WNL for pt baseline,sx of aphasia at times. Plan to go to rehab when medically stable. Bed bound at this time, Q2hr T/R. R PICC double lumen, running CPN @ 65.3ml/hr, CDI, SL. Ryees in place, patent and draining. Dysphagia diet, x1 assist to feed, pills whole in pudding. Hbg 9.7. Tele placed this evening after HR sustaining in 130's, MD aware, NSR at this time. Bed alarm on for safety, call light in reach, rings appropriately, resting comfortably at this time. * Shahida Larios RN - 03/19/2022 [id number] EDT Nsg: this rn assumed care of this patient at time of 0700. Pt awake and alert at breakfast, new client banking services clerk in with pt, pt working on her breakfast, pt smiling, talking, speech continues to get more clear, pt talking in more fluid sentences,pt recognized this rn from when this rn took care of her last Saturday. Pt's eyes bright, smiling and laughing and engaging in conversation. cpn infusing at 65.3ml, picc site negative, right arm, good blood return, flushes easily. The fat emulsion infusing at 10.42ml per hour. Fat emulsion was not reordered for time of 1600. Lungs: clear upper, diminished bases, pt has denied any sob. Hrr, pt can be tachy at times, pt has denied any chest pain or pressure. abd soft, no ntender, active bowel sounds. Tap water enema given earlier at approx time of 1740. No results backyet. Pt jeff well. Pt has been assisted with turning and repositioning every 2 hours and prn. Fall prec in place and bed alarm is on. Reyes catheter draining qs clear yellow urine. Pt ate 25% of her breakfast, 25% of her lunch. Pt is taking some po fluids. Pt has denied any nausea. Pt was not hungryfor dinner and she did not want any of the food. Po fluids at bedside with her special aspiration mug. Pt worked with physical therapy today. Pt stood at bedside with them, see phys. Therapy note. Aspiration prec followed. Pt has denied any pain for this rn. No s/s of pain observed or noted. No open areas observed or noted on pt's coccyx or sacrum. Pt resting quietly at this time. Bed alarm is on. See flow sheets and emar for furthur information. in to see pt today. * Tayler Hunt, PT - 03/19/2022 1702 EDT [facility] Physical Therapy Encounter Note Date of Service: 03/19/2022 SUBJECTIVE: Patient is currently having difficulty with: mobility, weakness. Patient/caregiver states: I think I'm ready to move more. Pain Comments: Minimal report of soreness over B dorsum of feet, B distal gastroc with initial stand. Improved with second repetition with no report of pain. OBJECTIVE: Interventions Completed Today: Time: 1311 Total Treatment Time (minutes): 23 Timed Code Treatment Minutes: 23 Therapy Session: A corrective therapy aide was present for the physical therapy session Therapeutic Activities Minutes: 23 Therapeutic Activities 1: Patient performed supine to sit transition with CGA to stabilize at EOB. Patient reported dizziness at EOB with BP 114/78; measured 128/67 in supine prior to mobilizing. Resolved after seated rest. STS training at EOB to RW. Initial stand with max assist x1. Discomfort reported over B feet and ankles, controlled to sitting with mod assist. Cued for ankle mobility in sitting prior to next trial with resolution of symptoms. STS second trial with max assist x1 to RW. Standing with wobbly stance with limited proximal stabilization to maintain stability. Pt. with tendencyto take hands off walker when feeling unstable with mod/max assist to maintain balance. Attempted side stepping with third STS trial at EOB with Mod/max assist x1 to stabilize. Poor motor control resulting in scissoring of RLE over LLE in stance. Support to return to sitting due to potential for LOB. UNable to find recliner to progress transfer out of bed. Returned to supine with min assist x1. able to scoot independently higher in bed once cued for task. Patient Status at the End of the Therapy Session, The patient was left in the: bed with the: Call farris in reach, Bed alarm on Patient/Family Education: Activity/Work/Community: Activity modification Braces and Equipment: Assistive device/technique Mobility, Transfers, and Gait: Mobility recommendations, Functional transfers Recommendations: Discharge recommendations/planning Team Communication Notified: Nurse When: After therapy session By: [id number] communication About: Mobility tolerance. Response to treatment. ASSESSMENT: Patient has made some progress with mobility with progression of STS training. Improved arousal andresponse to cueing noted from previous session. Patient continues to demonstrate global functional weakness and impaired motor control impacting safe mobility and requiring extensive assist to perform functional transfers. Patient to continue to benefit from PT intervention to progress mobility as tolerated. STR continues to be indicated at discharge due to decline from PLOF. Physical Therapy is medically necessary to: address these body structure/function impairments, activity limitations, and participation restrictions, establish and progress mobility/exercise and provide recommendations for staff and safe discharge planning, improve safety and independence, facilitate return to prior level of function PLAN: Recommended Discharge Destination: Subacute rehabilitation Next Session to Include: transfer training, therex. Tayler Hunt, PT 03/19/2022 17:16 * Nayely Bridges MBBS - 03/19/2022 [id number] EDT Medicine Progress Note Service Date: 03/19/2022 Admit Date: 03/07/2022 8:29 Reason for Admission: 52 y.o. female admitted with a chief complaint of altered mental status and now with a principal diagnosis of toxic metabolic encephalopathy. 24 Hour Events: Noted to have sinus tachycardia, asymptomatic, responded well to metoprolol. Also received 1 dose of magnesium sulfate supplement. Subjective/Objective Subjective Patient is sitting up in bed, continues to be more alert. States that she is sleeping well. She is trying to eat more. Denies any pain complaints. Review of Systems A 10 point review of systems was performed, pertinent positive and negative findings documented above, remaining are negative. Objective Vital Signs Temp: [36.3 ??C (97.3 ??F)-37 ??C (98.6 ??F)] , Heart Rate: [101 BPM] , Resp: [16-20] , BP: (99-128)/(65-95) , SpO2: [98 %-99 %] Physical Exam General: Chronically ill-appearing Lungs: Clear to auscultation bilaterally Heart: S1, S2 heard. No murmurs Abdomen: Soft, nontender, nondistended. Positive bowel sounds Extremities: No peripheral edema. Distal pulses + Neuro: Alert and oriented to self. Aphasia. Moving all 4 extremities Psych: Cooperative, calm Medications Reviewed: No new changes Labs Reviewed: Sodium 135, magnesium 1.6, potassium 4.6 Imaging Reviewed: No new imaging Assessment/Plan Assessment Ms. 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 Plan #Acute toxic metabolic encephalopathy with global weakness, severe functional decline: Suspected due to ADD medication reaction/polypharmacy. Neuroimaging i.e. MR head and neck did not show any acuteabnormalities. EEG 03/14 without any active seizure activity. Infectious work-up i.e. Lyme's, HIV, hep C negative. Autoimmune work-up negative as well. Appreciate neurology input. Discontinued/weaned [employer] AED regimen, started on pregabalin for seizure control, titrated up to 100 mg twice daily per recommendations. Overall mental status has improved, continue to monitor closely. If has recurrent worsening, will need further work-up i.e. LP/transferred to [facility] neurology service. #Severe protein calorie malnutrition: Suspected due to ongoing encephalopathy in setting of severe colonic immobility. Appreciate nutrition consult. Continue CPN until patient has reliable p.o. intake. #Acute on chronic symptomatic hyponatremia: Improving. 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 Continue salt tablets and monitor daily levels. May discontinue salt tablets in a day or 2. No further fluid restriction needed. #Complicated Proteus UTI, urinary retention: S/p ceftriaxone course. Continue Reyes for retention. 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 Restarted [employer] apixaban 2.5 mg twice daily. DC'd [employer] AED regimen due to above, currently on pregabalin for seizure prophylaxis. #Constipation: Continue senna, lactulose #Anxiety: Continue [employer] propranolol, Wellbutrin #Hypokalemia, hypomagnesemia, hypocalcemia: Monitor in setting of CPN, replete as needed #Sinus tachycardia: Suspected due to electrolyte imbalance. Repleted magnesium, responded well to metoprolol. Will continue for now, DC [employer] propranolol. #Oropharyngeal dysphagia: Likely secondary to ongoing encephalopathy, appreciate [employer] input #Acid reflux: Started on famotidine #Severe physical deconditioning: Appreciate PT, OT involvement, she will eventually need subacute rehab FEN: Dysphagia diet CODE STATUS: Full VTE Prophylaxis: On apixaban Consults: Neurology, [employer] Discharge plan: TBD SUSAN Dawn 03/19/2022 16:27 * Mercedes Deluna - 03/19/2022 1528 EDT Pt is medically active. While cognitively closer to her baseline, she remains on CPN. Anticipated dc plan is [facility] once stable. Initial referrals have been made and SNF packet started. * Olivia Frazier OT - 03/19/2022 1508 EDT [facility] [place] Occupational Therapy Progress Note Date of Service: 03/19/2022 SUBJECTIVE: Patient is currently having difficulty with: weakness Patient/caregiver states: I'm feeling a little off today Pain Comments: no c/o pain during OT OBJECTIVE: In this reporting period 03/09/22 to today, the patient has been seen for occupational therapy services. Please refer to the occupational therapy notes for specifics on the patient???s treatment sessions. Interventions Completed Today: Time: [id number] Total Treatment Time (minutes): 30 Timed Code Treatment Minutes: 30 Procedures: Self-care/home management Self-Care/Home Management 1: Prompted pt to sit EOB for oral care, bathing and changing gown. Pt assisted for set up, needed help opening toothpaste, manipulating brush, used built up foam for increased ability to grasp. Pt was able to static sit independently for task. Max A to stand. See above for level of assist. Body Functions and Performance Skills Cardiovascular/Respiratory Systems Function: Mental Functions: Arousal/Alertness: Alert Orientation Level: Oriented to person Following Commands: Follows one step commands Attention: Attends with cues to redirect Inititation: Cues to initiate tasks Behavioral Characteristics: Pleasant and cooperative Communication: Expressive aphasia Communication Comments: improved from initial assessment, able to make full appropriate statements,some word substitution noted. Sensory Functions: Vision - Basic Assessment Additional Comments: did not reassess for progress note Neuromusculoskeletal and Movement Related Functions: Range of Motion: No problems noted Strength Additional Comments: did not formally assess for progress note, but pt continues to have significant UE weakness, difficulty grasping objects, 3-/5 proximal strength, 3/5- 3+/5 distal Skin and Related Structure Functions: NT Areas of Occupation and Performance Skills Basic Activities of Daily Living: Grooming Additional Comments: set up and mod A for oral care, cues to swish/spit adequately, max A hair care Upper Body Bathing Level of Assistance: Minimal contact assistance Lower Body Bathing Level of Assistance: Moderate assistance Upper Body Dressing Additional Comments: mod A to don hospital gown Mobility Additional Comments: min A for bed mobility, scoot to EOB, supine to sit, sit to supine and scoot in bed. Max A x 1 to static stand EOB Instrumental Activities of Daily Living: NA Patient/Family Education: ASSESSMENT: The patient's prior level of function was: Supervision, Minimal contact assist Pt has made progress in mentation and mobility since eval after a slowed progression due to medicalchanges. Pt participated well in therapy today and is appropriate for continued rehab. Current status is: below prior level of function The patient's rehabilitation potential is: good Progress may be improved by the following patient strengths: participation level, previous level offunction Medical Necessity: occupational therapy is medically necessary to provide compensatory and remediation training to maximize the patient's independence and participation in activities of daily living and instrumental activities of daily living. The patient has made progress in the areas of: mentation, mobility and ADL The patient: requires sub-acute rehabilitation as next level of care for multiple therapy disciplines at a lower intensity with the expectation to return to prior level of function/living situation. Short Term Goals: Time Frame: to be met by 03/26/22 Goal: Pt to complete toileting using walker and commode with min A Status: Progressing, Extend Goal: Pt to sit EOB with SBA to complete oral care and grooming tasks with min A Status: Progressing, Extend Goal: Pt to demonstrate increased strength in both UE to be able to push self to EOB with CGA and cues Status: Met Goal: Pt to complete upper body ADL tasks with set up and min cues Status: Initiated Care Home Goals:NA PLAN: Continue per established treatment plan Training: Activities of daily living retraining, Transfer training, Cognitive- perceptual retraining, Adaptive equipment evaluation/education, Assistive devices/equipment training, Cognitive retraining for activities of daily living, Balance training, Neuromuscular re-education Active Engagement: Activity tolerance, Self-care/home management, Therapeutic exercise, Therapeuticactivities, Fine motor coordination activities Frequency: Times per week Times Per Week: 3 Intensity: 15-45 minutes Duration: Duration of hospitalization Patient/Family Education: Family/caregiver education, Falls Prevention, Safety, Role of physical therapy/occupational therapy/rehabilitation, Equipment, Discharge planning Recommended Discharge Destination: Subacute rehabilitation Next Session to Include: UE ther ex/ADL training OLIVIA FRAZIER OT, 03/19/2022, 15:37 * Susana Stewart 03/19/2022 0933 EDT [facility] Speech-Language Pathology Encounter Note Date of Onset: 03/07/22 [employer] Diagnosis: Dysphagia, oropharyngeal phase: Medical Diagnosis: Altered mental status, UTI Initial Evaluation Date: 03/08/22 Subjective/Objective Subjective So what have you all been up to today?, Oh yeah, I'll eat that. I like that regarding yogurt Objective Date of Service: 03/19/2022 Time In: 0900 Total Treatment Time: 30min Intervention: Pt seen bedside during breakfast, agreeable to trials of soft minced/moist (scrambledeggs), puree (yogurt), and thin liquids. Pt brought to upright angle. Pt able to self-feed with andwithout [employer] assist using cup, fork, and spoon. 2/2 trials of scrambled eggs characterized by reduced mastication, remaining oral residue, and labial escape. Pt took sips of thin liquid without any s/s of airway compromise. Pt ate about half of a cup of yogurt with remaining oral residue and labial escape. Pt demonstrated one cough immediately after trial of thin liquid, self-cued sips of thin liquid and no further coughing. Able to clear all remaining oral residue throughout meal with additional sips of thin liquid. Nursing reports pt is improving each day. Pt recalls some information from hospitalization, seems confused or unsure about information prior (e.g., previous outpatient [employer] services, her birthday, repeating questions). Goals Progress on goals is as follows: -Patient will demonstrate optimum safety and efficiency of swallowing function for highest diet/liquid consistencies as indicated by skilled intervention or radiographically. ??(by date:03/23/22) -Tolerate??thin??liquids without evidence of coughing, choking, throat ??clearing, wet voice, etc...in : 95%(??19/??20) of observed swallows using compensatory swallow strategies with??min??cues. (bydate: ) -Tolerate??regular??consistency diet without overt s/s of dysphagia in 95??% ( 19??/ 20) of observed swallows using strategies with??min??cues. ??(by date: 03/23/22) -Verbalize compensatory swallow strategies with??min??cues 90% accuracy. (by date: 03/23/22) Patient/Family Education: Topic: Ongoing education provided to patient/family regarding Role of [employer], results of today's session, andcompensatory strategies to support safe and effective swallow. Learner: patient Method of Education: Verbal Barriers to Learning/Education: patient's inability to learn/carry over information at this time Patient: needs further instruction and education Family: n/a Assessment/Plan Assessment/Clinical Impressions Assessment: Pt continues with oropharyngeal dysphagia characterized by reduced mastication of solidtextures, remaining oral residue, labial escape, and one trial of coughing after swallow of yogurt which was cleared with additional sips of thin liquid. Pt demonstrating ability to self-feed this date with and without [employer] assist, indicates improving stamina from medical diagnosis. Pt benefits from compensatory strategy of additional sips of thin liquid to clear and is implementing technique independently. Given memory deficits, pt still requires reminders and cueing during meals. Feel pt should maintain current diet. Pt will continue to benefit from [employer] intervention to monitor diet management and offer additional compensatory strategies as needed. Plan/Recommendations Continue [employer] intervention 3x/week Maintain current diet Current Diet: Minced and moist with thin liquids Susana Stewart 03/19/2022 9:34 Cosigned by Denita Cui MS CCC-[employer] at 03/19/2022 9:58 EDT Associated attestation - Denita Cui MS CCC-[employer] - 03/19/2022 0958 EDT DENITA CUI MS CCC-[employer] was present throughout the entire session and directed the care of the patient by the therapy student. DENITA CUI MS CCC-[employer] 03/19/2022 9:58 * Tiana Del Rio RN - 03/19/2022 0358 EDT Pt a+ox1, admitted w/ AMS and metabolic encephalopathy. No events to report overnight. No c/o pain t/o shift, slept well. Continues to have low PO intake, takes pills PO whole in pudding. Currently running CPN @ 65.3ml/hr and lipids @ 10.42ml/hr through double lumen PICC to R UA. Blanchable rednessto coccyx. Reyes in place, patent and draining. Bed bound at this time, Q2hr T/R. Dysphagia diet inplace. Neuro checks Q4hr, WNL for pt baseline. Bed alarm in place, rings appropriately, call light in reach, resting comfortably at this time. * Caren Gorman - 03/18/2022 1409 EDT Patient is not eating much and is still on CPN. When medically ready she will need rehab. Referralshave been started and SNF packet has been made. * Nayely Bridges MBBS - 03/18/2022 1203 EDT Medicine Progress Note Service Date: 03/18/2022 Admit Date: 03/07/2022 8:29 Reason for Admission: 52 y.o. female admitted with a chief complaint of altered mental status and now with a principal diagnosis of toxic metabolic encephalopathy. 24 Hour Events: No acute events overnight Subjective/Objective Subjective Patient remains alert and participate in conversation. She has aphasia at baseline, she is able to explain to me that she is seeing the right thing in her brain but cannot express it in words. She issurprised that she got so sick but glad that she is doing better. She denies any pain complaints. Review of Systems A 10 point review of systems was performed, pertinent positive and negative findings documented above, remaining are negative. Objective Vital Signs Temp: [36.1 ??C (96.9 ??F)-36.7 ??C (98.1 ??F)] , Heart Rate: [119 BPM] , Resp: [14-16] , BP: (125-131)/(78-91) , SpO2: [97 %-98 %] Physical Exam General: NAD Lungs: Clear to auscultation bilaterally Heart: S1, S2 heard. No murmurs Abdomen: Soft, nontender, nondistended. Positive bowel sounds Extremities: No peripheral edema. Distal pulses + Neuro: Alert and oriented to self. Aphasia. Moving all 4 extremities Psych: Cooperative, somewhat anxious Medications Reviewed: No new changes Labs Reviewed: Sodium 134, magnesium 1.4, phosphorus 5, potassium 4.8 Imaging Reviewed: No new imaging Assessment/Plan Assessment Ms. 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 Plan #Acute toxic metabolic encephalopathy with global weakness, severe functional decline: Suspected due to ADD medication reaction/polypharmacy. Neuroimaging i.e. MR head and neck did not show any acuteabnormalities. EEG 03/14 without any active seizure activity. Infectious work-up i.e. Lyme's, HIV, hep C negative. Autoimmune work-up negative as well. Appreciate neurology input. Discontinued/weaned [employer] AED regimen, started on pregabalin for seizure control, titrated up to 100 mg twice daily per recommendations. Overall mental status has improved, continue to monitor closely. If has recurrent worsening, will need further work-up i.e. LP/transferred to [facility] neurology service. #Severe protein calorie malnutrition: Suspected due to ongoing encephalopathy in setting of severe colonic immobility. Appreciate nutrition consult. Continue CPN until patient has reliable p.o. intake. #Acute on chronic symptomatic hyponatremia: Improving. 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 Continue salt tablets and monitor daily levels. May discontinue salt tablets in a day or 2. No further fluid restriction needed. #Complicated Proteus UTI, urinary retention: S/p ceftriaxone course. Continue Reyes for retention. 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 Restarted [employer] apixaban 2.5 mg twice daily. DC'd [employer] AED regimen due to above, currently on pregabalin for seizure prophylaxis. #Constipation: Continue senna, lactulose #Anxiety: Continue [employer] propranolol, Wellbutrin #Hypokalemia, hypomagnesemia, hypocalcemia: Monitor in setting of CPN, replete as needed #Oropharyngeal dysphagia: Likely secondary to ongoing encephalopathy, appreciate [employer] input FEN: Dysphagia diet CODE STATUS: Full VTE Prophylaxis: On apixaban Consults: Neurology, [employer] Discharge plan: TBD SUSAN Dawn 03/18/2022 12:03 * Shaylee Salazar, RD - 03/18/2022 0923 EDT Nutrition Follow-Up S: Pt reports feeling well. States bf was okay, didn't like the pancake. Loved the ice cream last night. Willing to try shakes. Of note, when pt seen yesterday for meal choices visitor present indicated pt is somewhat of a picky eater at baseline and never eats much at once, she nibbles. O: Diet Rx: dysphagia 5 minced and moist CPN Rx: 1065 kcal at 65 ml/hr + 250 ml 20% IV lipid Provides 1065 kcal, 76 g protein, 300 g dextrose Meds: bupropion, lactulose, metoclopramide (IV), lyrica, senna, NaCl Lab Results Component Value Date/Time WBC 6.68 03/18/2022 05:37 HGB 10.0 (L) 03/18/2022 05:37 HCT 29.6 (L) 03/18/2022 05:37 MCV 99 (H) 03/18/2022 05:37 NA 134 (L) 03/18/2022 05:38 K 4.8 03/18/2022 05:38 CO2 23 03/18/2022 05:38 CL 103 03/18/2022 05:38 BUN 16 03/18/2022 05:38 CREATININE 0.41 (L) 03/18/2022 05:38 GLUCOSEPOC 118 (H) 03/18/2022 05:36 CALCIUM 8.6 03/18/2022 05:38 PHOS 5.0 (H) 03/18/2022 05:38 MG 1.4 (L) 03/18/2022 05:38 Wt Readings from Last 5 Encounters: 03/18/22 64.6 kg (142 lb 6.7 oz) 02/22/22 59 kg (130 lb) 02/02/22 57.5 kg (126 lb 12.2 oz) 01/16/21 72.6 kg (160 lb) 09/14/20 79.8 kg (176 lb) Weights Filed This Admission 03/07/22 0915 03/07/22 1244 03/09/22 0538 03/11/22 0539 Weight: 58.1 kg (128 lb) 58.1 kg (128 lb) 60.2 kg (132 lb 11.2 oz) 58.6 kg (129 lb 4 oz) 03/13/22 0555 03/14/22 0622 03/15/22 0525 03/17/22 0536 Weight: 55.9 kg (123 lb 4.8 oz) 59 kg (130 lb 1.1 oz) 59.4 kg (130 lb 14.4 oz) 60.8 kg (134 lb) 03/18/22 06 Weight: 64.6 kg (142 lb 6.7 oz) PO: 25% x 2 today Skin: blanchable redness per nsg flowsheets GI: last BM 03/15 Estimated needs: 5007-2431 kcals/day (MSJ x 1.3-35 kcals/kg) 71-89 (1.2-1.5 grams/kg) A: 52 yo female admitted with AMS, malnutrition. Mental status has waxed and waned since admit, consistently more alert last two days. PO intake limited but improving some, consuming 25% of meals instead of bites and sips. Engaged in menu selection. Enjoyed ice cream with chocolate sauce, willing to try Boost. Pt is somewhat of a vague historian, c/b aphasia. Able to say that she feels hungry and the food looks good but then when she tries to eat it it doesn't taste right. Indicates, partly thru gestures and partly with RD clarifying, that her brain and her tongue aren't communicating well. Denies odynophagia or dysphagia, does not endorse n/v but some question if she fully understood the question. Per notes, suspect poor nutritional status at baseline. Suggest trial zinc supplement to see if it helps with dysguesia. Continue to encourage good PO. CPN meeting lower end of estimated kcal and protein needs. K+ higher end of normal, Mg low, Phos high, suggest adjust electrolytes as below, continue to monitor serum levels daily. If mental status continues to be improved, consider holding IV lipid tomorrow to see if appetite will develop. Will follow. Wgt up 3.9 kg x 1 day, question accuracy vs fluid, please recheck wgt, monitor daily as able. Of note, pt on IV reglan 4x/day, will likely need to change to PO, and adjust timing, prior to d/c. Plan: Continue diet Continue CPN with the following changes: Phos to 12 mmol Mg to 12 mEq K to 50 mEq Monitor wgt daily Encourage good PO Continue to monitor intake, wgt, labs, skin, bowels, comfort RD following Shaylee Salazar MS, RD, CD * Nayely Bridges MBBS - 03/17/2022 1416 EDT Medicine Progress Note Service Date: 03/17/2022 Admit Date: 03/07/2022 8:29 Reason for Admission: 52 y.o. female admitted with a chief complaint of altered mental status and now with a principal diagnosis of toxic metabolic encephalopathy. 24 Hour Events: Improving mental status. Subjective/Objective Subjective Patient is awake, she is able to tell me her name and able to participate in a conversation responding appropriately to questions however she is having hard time recollecting past events i.e. events leading to this hospitalization, her home address [place]. She feels quite weak, she has a bedside tray with food, ate about 25%, states she is having difficulty holding the spoon as she is very shaky, I encouraged her to call for help if she needs help with eating. Review of Systems A 10 point review of systems was performed, pertinent positive and negative findings documented above, remaining are negative. Objective Vital Signs Temp: [35.8 ??C (96.5 ??F)-35.9 ??C (96.7 ??F)] , Heart Rate: [93 BPM-105 BPM] , Resp: [14-16] , BP: (128-135)/(84-97) , SpO2: [98 %-99 %] Physical Exam General: NAD Lungs: Clear to auscultation bilaterally Heart: S1, S2 heard. No murmurs Abdomen: Soft, nontender, nondistended. Positive bowel sounds Extremities: No peripheral edema. Distal pulses + Neuro: Alert and oriented to self. Moving all 4 extremities Psych: Cooperative, somewhat anxious Medications Reviewed: No new changes Labs Reviewed: Sodium 135 phosphorus 5.3 Imaging Reviewed: No new imaging Assessment/Plan Assessment Ms. 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 Plan #Acute toxic metabolic encephalopathy with global weakness, severe functional decline: Suspected due to ADD medication reaction/polypharmacy. Neuroimaging i.e. MR head and neck did not show any acuteabnormalities. EEG 03/14 without any active seizure activity. Infectious work-up i.e. Lyme's, HIV, hep C negative. Autoimmune work-up negative as well. Appreciate neurology input. Discontinued/weaned [employer] AED regimen, started on pregabalin for seizure control, titrated up to 200 mg twice daily per recommendations. Overall mental status has improved, continue to monitor closely. If has recurrent worsening, will need further work-up i.e. LP/transferred to [facility] neurology service. #Severe protein calorie malnutrition: Suspected due to ongoing encephalopathy in setting of severe colonic immobility. Appreciate nutrition consult. Continue CPN until patient has reliable p.o. intake. #Acute on chronic symptomatic hyponatremia: Improving. 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 Continue salt tablets and monitor daily levels. May discontinue salt tablets in a day or 2. #Complicated Proteus UTI, urinary retention: S/p ceftriaxone course. Continue Reyes for retention. 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 Restarted [employer] apixaban 2.5 mg twice daily. DC'd [employer] AED regimen due to above, currently on pregabalin for seizure prophylaxis. #Constipation: Continue senna, MiraLAX, lactulose initiated daily and MS #Anxiety: Continue [employer] propranolol, Wellbutrin #Hypokalemia, hypomagnesemia, hypocalcemia: Monitor in setting of CPN, replete as needed #Oropharyngeal dysphagia: Likely secondary to ongoing encephalopathy, appreciate [employer] input FEN: Dysphagia diet CODE STATUS: Full VTE Prophylaxis: On apixaban Consults: Neurology, [employer] Discharge plan: TBD SUSAN Dawn 03/17/2022 14:16 * Jv Kessler MD - 03/16/2022 1443 EDT Medicine Progress Note Service Date: 03/16/22 Admit Date: 03/07/2022 Reason for Admission: 52 y.o. female admitted with a chief complaint of altered mental status and now with a principal diagnosis of global weakness, encephalopathy. 24 Hour Events: - NAEO Subjective/Objective Subjective - More awake this morning - Feels that her facial numbness and left leg numbness has improved slightly Review of Systems Unable to obtain due to patient factors: somnolence Objective Vital Signs BP 113/84 (BP Cuff Location: Left arm, BP Patient Position: Semi fowlers) Pulse 104 Temp 35.9 ??C (96.6 ??F) (Axillary) Resp 14 Ht 170.2 cm (67) Wt 59.4 kg (130 lb 14.4 oz) SpO2 99% BMI 20.50 kg/m?? Physical Exam GEN: Alert, cooperative, no distress, appears older than stated age HEENT: MMM, PERRL, EOMI NECK: Supple, no JVD LUNG: CTA BL, good air movement, no increased work of breathing, on room air CV: RRR, Normal S1/S2, No M/R/G ABD: soft, NT/ND; nl bowel sounds; no rebound or guarding, no organomegaly EXTRM: no edema, extremities warm, no cyanosis SKIN: skin color, temperature, turgor normal. No rashes or lesions. NEURO: Alert, CN 2-12 grossly intact, moving all extremities. Decreased sensation over left leg andleft, lower face. Strength 5/5 in upper extremities in all muscle groups. Strength 3/5 for hip flexors bilaterally (unable to lift legs off the bed or keep them up if I lifted them), dorsiflexion, plantar flexion and knee extension are 5/5 bilaterally. PSYCH: Normal memory, judgment, insight, mood, & effect Medications Reviewed in EPIC Labs Reviewed: BMP: Recent Labs 03/14/22 0624 03/14/22 0936 03/15/22 0709 03/15/22 1331 03/15/22201103/16/22 0017 03/16/22 0614 03/16/22 0806 NA 121* < > 126* < > 131* 128* 130* -- K 4.8 -- 4.9 -- 4.8 -- 6.0* 4.8 CL 95* -- 104 -- 102 -- 102 -- CO2 20* -- 17* -- 21* -- 20* -- BUN 15 -- 14 -- 13 -- 14 -- CREATININE 0.40* -- 0.38* -- 0.40* -- 0.39* -- MG 1.6* -- 2.1 -- -- -- 1.6* -- PHOS 4.4 -- 4.6* -- -- -- 5.6* -- < > = values in this interval not displayed. Lab Results Component Value Date ALT 476 (H) 03/16/2022 AST 406 (H) 03/16/2022 ALKPHOS 129 (H) 03/16/2022 CBC: Recent Labs 03/15/22 0709 03/16/22 0614 03/16/22 1146 WBC 4.99 5.92 5.28 HGB 9.8* 10.3* 10.0* PLT 164 222 200 Imaging Reviewed: MR Head w/o Contrast 03/08 Impression: ?? 1. No acute intracranial pathology. 2. Chronic findings, as above. MR C-spine w/o Contrast 03/08 Impression: ?? No acute findings in the cervical spine. Micro 03/07/2022 COVID-19: Negative Blood cultures x2: Pending Urine culture: growing proteus mirabilis Assessment/Plan Assessment Ynes Cindy??is a 52 y.o.??female??with a history significant for sinus venous thrombosis c/b left intracerebral hemorrhage requiring surgical evacuation, with resultant left temporoparietal encephalomalacia and associated seizures who is admitted with complicated proteus??UTI, toxic/metabolicacute on chronic encephalopathy, generalized weakness, severe urinary/fecal retention >1 month, and profound decrease in functional status. ?? At this time there is not a unifying diagnosis though AED medication reaction/polypharmacy is of high suspicion. Less common etiologies for her profound weakness should also be considered given her profound weight loss in recent months and absolute GI immotility >1 month, including autoimmune or broader infectious etiologies, and neurogenic. Additional neuro imaging (MR head and neck) did not show any concerning abnormalities or evidence of motor neuron disease. EEG on 03/14 showed no seizures. Appreciate ongoing neuro support. Clinically improved today but if she declines again, would have a low threshold to reaching out to [facility] for transferring to their service. Plan Global weakness, severe malnutrition, fatigue/ severe colonic immobility /lack of rectal tone: MR head and cervical spine above. MR thoracic spine cancelled per unremarkable findings in other imaging. HIV and hep C serologies negative, CK has been negative, TSH/T4 WNL. HERRERA, ANCA, SSA/SSB antibody, and rheumatoid factor negative. Increased somnolence and agitation over past 24h. Etiology remains uncertain, discussing with Dr. Polk of Neurology. - PPN advanced to CPN today - Nutrition consulted - [employer]ESTER epyton appreciated - Neurology consulted, appreciate recommendations - Continue to hold lamotrigine and hold AUTOMOTIVE PARTS CLERK olanzapine - Myeloperoxidase ab and proteinase 3 ordered and pending - Daily CMP - Canceled LP per recommendations from Dr. Polk - Continue pregabalin 75mg BID today, increase to 100mg BID starting tomorrow 03/17/2022 (ordered) - Lacosamide discontinued Acute on chronic symptomatic hyponatremia: 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 SIADH is most likely due to oxcarbazepine at this time. I suspect that her hyponatremia and SIADH will resolve once the oxcarbazepine is out of her system. Unclear if her increased confusion was due to her hyponatremia but her mentation improved with a sodium level closer to 130. - Daily BMP - Fluid restriction of 1L/day - Salt tabs 1g TID - Would transfer to the ICU if sodium drops below 120 Complicated UTI/Urinary retention: Cultures show proteus. Completed course of ceftriaxone. - Continue Reyes (placed in ED 03/03/2022) ?? 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 Anxiety: - Continue propranolol - Continue wellbutrin ?? Electrolyte abnormalities: Improving hypokalemia, hypomagnesemia, and hypocalcemia - Trend - Replete PRN - Closely monitor electrolytes and for refeeding syndrome ?? Constipation: - Daily enemas - MiraLax as tolerated - lactulose - bid senna VTE Prophylaxis AUT[employer]OTIVE PARTS CLERK apixaban Discharge Plan Pending course Consults Neurology I spent more than 35 minutes in direct floor time solely dedicated to caring for this patient todayincluding >50% of time spent in counseling and coordination of care. Time spent in review of themedical chart, review of labs, discussion with consultants, disease counseling and treatment planning with the patient. JV KESSLER MD 03/16/2022 14:43 * Mercedes Deluna - 03/16/2022 1435 EDT Pt remains medically active. She is planned for an LP tomorrow and could potentially require transfer to [facility] neuro. Anticipated dc plan had been for [facility]. SNF packet was initiated along with local referrals. Will follow. * Brayan Polk MD - 03/16/2022 1208 EDT I was told by Dr Kessler that Ynes is looking much better today, more alert, communicating much better. Hopefully being on monotherapy pregabalin will be adequate to control her seizures and not give her other side effects, though unfortunately cognitive side effects are among the most common. Ok to cancel LP and restart apixaban. Maintain pregabalin 75mg BID for today, then increase to 100mg BID starting tomorrow and maintain that dose unless new issues arise. Brayan Polk MD * Susana Stewart - 03/16/2022 0957 EDT [facility] Speech-Language Pathology Progress Note Date of Onset: 03/07/22 [employer]ER Diagnosis: Dysphagia, oropharyngeal phase: Medical Diagnosis: Altered mental status, UTI Initial Evaluation Date: 03/08/22 Subjective/Objective Subjective No when RN asked if she could open her mouth Objective Date of Service: 03/16/2022 Time In: 0915 Total Treatment Time: 15min Intervention: Pt seen bedside while RN was administering pills. Pt taking pills whole in applesauceand liquid medications by cup, nursing reports pt is doing very well with PO intake. Pt tolerating all medication trials without s/s of airway compromise. Trials characterized by prolonged bolus holdand intermittent effortful swallow, no signs of remaining oral residue. Nursing cues pt to tuck chin while swallowing whole pills but pt does not demonstrate. The patient seen for a total of 2 sessions since initial evaluation. Please see encounter notes fordetails. Goals Progress on goals is as follows: -Patient will demonstrate optimum safety and efficiency of swallowing function for highest diet/liquid consistencies as indicated by skilled intervention or radiographically. ??(by date:03/23/22) Continue -Tolerate??thin??liquids without evidence of coughing, choking, throat ??clearing, wet voice, etc...in : 95%(??19/??20) of observed swallows using compensatory swallow strategies with??min??cues. (bydate: ) Minimal trials observed this date, continue -Tolerate??regular??consistency diet without overt s/s of dysphagia in 95??% ( 19??/ 20) of observed swallows using strategies with??min??cues. ??(by date: 03/23/22) Currently on minced/moist diet, continue -Verbalize compensatory swallow strategies with??min??cues 90% accuracy. (by date: 03/23/22) Continue Patient/Family Education: Unable to provide education secondary to pt completed meal prior to [employer]ER arrival. Assessment/Plan Assessment/Clinical Impressions Assessment: Pt continues with oropharyngeal phase dysphagia characterized by prolonged bolus hold and intermittent effortful swallow. Pt doing well with whole pills in applesauce per observation and nursing report. No s/s of airway compromise observed during any trials this date. Pt will continue to benefit from [employer]ER intervention to continue monitoring diet management and offering compensatory strategies as needed. Will assess increased trials/textures next session due to minimal trials observedthis date. Plan/Recommendations Continue FI[employer] FORESTER intervention 3x/week Assess increased trials and textures next session Current Diet: Minced and moist with thin liquids Susana Stewart 03/16/2022 9:57 Cosigned by Denita Cui MS CCC-FIRE OPERATIONS FORESTER at 03/16/2022 12:56 EDT Associated attestation - Denita Cui MS CCC-FI[employer] OPERATIONS FORESTER - 03/16/2022 1256 EDT This student note written by Susana Stewart , digital marketer clinician is accepted as written. I was present for and directed all treatment with this patient this date. * Olivia Frazier OT - 03/15/2022 1802 EDT [facility] Occupational Therapy Contact Note Date of Service: 03/15/2022 Pt not seen this date in OT due to high pt census and triage. Will follow up tomorrow. OLIVIA FRAZIER OT, 03/15/2022, 18:03 * Jv Kessler MD - 03/15/2022 1513 EDT Medicine Progress Note Service Date: 03/15/22 Admit Date: 03/07/2022 Reason for Admission: 52 y.o. female admitted with a chief complaint of altered mental status and now with a principal diagnosis of global weakness, encephalopathy. 24 Hour Events: - NAEO Subjective/Objective Subjective - Too somnolent this morning to answer questions - Had been more awake before I saw her per SUSPENDER MAKER and watch manufacturing supervisor of Systems Unable to obtain due to patient factors: somnolence Objective Vital Signs BP (!) 144/92 Pulse 104 Temp 36.6 ??C (97.9 ??F) (Axillary) Resp 16 Ht 170.2 cm (67) Wt 59.4 kg (130 lb 14.4 oz) SpO2 99% BMI 20.50 kg/m?? Physical Exam GEN: Somnolenct, no distress, appears stated age HEENT: MMM, PERRL, EOMI NECK: Supple, no JVD LUNG: CTA BL, good air movement, no increased work of breathing, on room air CV: RRR, Normal S1/S2, No M/R/G ABD: soft, NT/ND; nl bowel sounds; no rebound or guarding, no organomegaly EXTRM: no edema, extremities warm, no cyanosis SKIN: skin color, temperature, turgor normal. No rashes or lesions. NEURO: Not alert, CN 2-12 grossly intact, moving all extremities. Unable to assess strength and sensation today. PSYCH: Unable to assess Medications Reviewed in [facility] Labs Reviewed: BMP: Recent Labs 03/13/22 0644 03/14/22 0624 03/14/22 0936 03/15/22 0159 03/15/22 0709 03/15/22 1331 NA 131* 121* < > 128* 126* 130* K 4.5 4.8 -- -- 4.9 -- CL 103 95* -- -- 104 -- CO2 21* 20* -- -- 17* -- BUN 13 15 -- -- 14 -- CREATININE 0.46* 0.40* -- -- 0.38* -- MG 1.7 1.6* -- -- 2.1 -- PHOS 4.6* 4.4 -- -- 4.6* -- < > = values in this interval not displayed. Lab Results Component Value Date ALT 311 (H) 03/15/2022 AST 351 (H) 03/15/2022 ALKPHOS 124 03/15/2022 CBC: Recent Labs 03/13/22 0644 03/14/22 0624 03/15/22 0709 WBC 3.44* 4.56 4.99 HGB 9.0* 9.9* 9.8* PLT 143 164 164 Imaging Reviewed: MR Head w/o Contrast 03/08 Impression: ?? 1. No acute intracranial pathology. 2. Chronic findings, as above. MR C-spine w/o Contrast 03/08 Impression: ?? No acute findings in the cervical spine. 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 ?? At this time there is not a unifying diagnosis though AED medication reaction/polypharmacy is of high suspicion. Weakness is improving with holding sedating meds (olanzapine), treatment for UTI, and PPN. ?? Less common etiologies for her profound weakness should also be considered given her profound weight loss in recent months and absolute GI immotility >1 month, including autoimmune or broader infectious etiologies, and neurogenic. She continues to be profoundly weak though improved from previousdays. Additional neuro imaging (MR head and neck) did not show any concerning abnormalities or evidence of motor neuron disease. EEG on 03/14 showed no seizures. Appreciate ongoing neuro support. If unable to determine etiology after LP is performed and she isn't improving, recommend transfer to [facility] Neu[facility]. Plan Global weakness, severe malnutrition, fatigue/ severe colonic immobility /lack of rectal tone: MR head and cervical spine above. MR thoracic spine cancelled per unremarkable findings in other imaging. HIV and hep C serologies negative, CK has been negative, TSH/T4 WNL. HERRERA, ANCA, SSA/SSB antibody, and rheumatoid factor negative. Increased somnolence and agitation over past 24h. Etiology remains uncertain, discussing with Dr. Polk of Neurology. - PPN initiated orders placed to continue today, plan to switch to CPN tomorrow - Nutrition consulted - FI[employer]PERATIONS FORESTER peyton appreciated - Neurology consulted, appreciate recommendations - Continue to hold lamotrigine and hold AUTOMOTIVE PARTS CLERK olanzapine - Myeloperoxidase ab and proteinase 3 ordered and pending - Valproate level from 03/11 still pending - Daily CMP - Discontinued apixaban and will undergo LP as early as Saturday 03/17 (procedure and lab orders have been entered) - Increase pregabalin to 75mg BID -Decrease AUTOMOTIVE PARTS CLERK lacosamide to 25mg BID for 2 doses and then stop Acute on chronic symptomatic hyponatremia: 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 SIADH is most likely due to oxcarbazepine at this time. I suspect that her hyponatremia and SIADH will resolve once the oxcarbazepine is out of her system. Unclear if her increased confusion and gait disturbances are due to this but it should be suspected at this time. - Checking Na q4h, goal of ~132 today - Fluid restriction of 1L/day - Salt tabs 1g TID - Would transfer to the ICU if sodium drops below 120 Complicated UTI/Urinary retention: Cultures show proteus. - Continue Reyes (placed in ED 03/03/2022) - Continue ceftriaxone x7 days (03/07-03/14) ?? Hx sinus venous thrombosis c/b hemorrhagic stroke and seizure disorder: - Holding AUTOMOTIVE PARTS CLERK apixaban - cont AUTOMOTIVE PARTS CLERK lacosamide - appreciate neuro consultation ?? Anxiety: - Continue propranolol - Continue wellbutrin ?? Electrolyte abnormalities: Improving hypokalemia, hypomagnesemia, and hypocalcemia - Trend - Replete PRN - Closely monitor electrolytes and for refeeding syndrome ?? Facial Rash: Improving. Possible drug reaction to lamotrigine - Medication adjustments as above ?? Constipation: - Daily enemas - MiraLax as tolerated - lactulose - bid senna VTE Prophylaxis SCDs Discharge Plan Pending course Consults Neurology I spent more than 35 minutes in direct floor time solely dedicated to caring for this patient todayincluding >50% of time spent in counseling and coordination of care. Time spent in review of themedical chart, review of labs, discussion with consultants, disease counseling and treatment planning with the patient. JV KESSLER MD 03/15/2022 15:13 * Shaylee Salazar, RD - 03/15/2022 1433 EDT Brief Nutrition Note Pt remains encephalopathic with minimal PO intake. Continues on PPN. PICC placed today, suggest change to CPN tomorrow, which will most closely meet estimated energy needs, allow for smaller volume and allow for adjustment of electrolytes. Rec CPN of 1065 kcal/76 g protein, meeting lower end of estimated needs. Will provide 480 ml less fluid daily. Serum Na improving. Current PPN providing 70 mEq Na daily, suggest increase to 80 mEq in CPN. Suggest d/c fluid restriction given limited PO. Neuro w/u ongoing. Bowels moving. Consider NGT pending clinical course. RD following Shaylee Salazar MS, RD, CD * Brayan Polk MD - 03/15/2022 1420 EDT Patient: Ynes White : 1970 Date: 03/15/2022 Brief neurology update: I examined Ynes after her EEG yesterday, persistently encephalopathic, able to answer some questions but not many. Making normal spontaneous movements with both arms and legs. Her liver enzymes continue to go up, possibly from brief administration of depakote which was given only as x1 1000mg then stopped. Oxcarbazepine was started and the next day she was hyponatremic so it was stopped and her sodium is normalizing. We've stopped her outpatient zonisamide in case it was contributing to her GI symptoms and encephalopathy. She has been adequately treated for UTI. She's now on her AUTOMOTIVE PARTS CLERK lacosamide 50mg BID, and pregabalin 50mg BID for seizure prophylaxis, and in terms of figuring out whetheror not her AUTOMOTIVE PARTS CLERK seizure medications were at fault for her subacute decline, we'll stop lacosamide and leave her just on pregabalin. She's also having her apixaban held in anticipation of LP this weekend. Recommendation: Decrease lacosamide to 25mg BID for 2 doses then stop. Increase prebabalin to 75mg BID now and continue as monotherapy. This will complete the transition off her outpatient AUTOMOTIVE PARTS CLERK antiseizure medications onto one she has not yet failed for side effects, andis effective for focal seizures. Follow up LP results when done, and restart apixaban when able afterwards. If LP is abnormal a callto [facility] neurology who takes our call weekends would be advisable. Unfortunately I'll be out of cell service this weekend. Brayan Polk MD * Mercedes Deluna - 03/15/2022 0831 EDT Pt remains medically acute, neurology closely following. Pt on PPN and placed on 1:1 for safety dueto intermittent restlessness/agitation. Pt has aphasia at baseline and came from the community with a friend/caregiver. Guardianship paperwork designating pt's sister Lucille Chapa ph: [phone] in pt's chart. Tentative dc plan is for dc to [facility] once medically stable. SNF packet started and initial review initiated with [facility], [facility], and [facility]. * Jv Kessler MD - 03/14/2022 1518 EDT Medicine Progress Note Service Date: 03/14/22 Admit Date: 03/07/2022 Reason for Admission: 52 y.o. female admitted with a chief complaint of altered mental status and now with a principal diagnosis of global weakness, encephalopathy. 24 Hour Events: - Agitated overnight, fell out of bed and received an abrasion on her leg - Sudden drop in sodium from 131 to 121 - Increased somnolence this morning Subjective/Objective Subjective - Too somnolent this morning to answer questions Review of Systems Unable to obtain due to patient factors: somnolence Objective Vital Signs BP 123/85 (BP Cuff Location: Right arm, BP Patient Position: Supine) Pulse 104 Temp 36.6 ??C (97.8 ??F) (Axillary) Resp 18 Ht 170.2 cm (67) Wt 59 kg (130 lb 1.1 oz) SpO2 98% BMI 20.37 kg/m?? Physical Exam GEN: Somnolenct, no distress, appears stated age HEENT: MMM, PERRL, EOMI NECK: Supple, no JVD LUNG: CTA BL, good air movement, no increased work of breathing, on room air CV: RRR, Normal S1/S2, No M/R/G ABD: soft, NT/ND; nl bowel sounds; no rebound or guarding, no organomegaly EXTRM: no edema, extremities warm, no cyanosis SKIN: skin color, temperature, turgor normal. No rashes or lesions. NEURO: Not alert, CN 2-12 grossly intact, moving all extremities. Unable to assess strength and sensation today. PSYCH: Unable to assess Medications Reviewed in [facility] Labs Reviewed: BMP: Recent Labs 03/12/22 0632 03/13/22 0644 03/14/22 0624 03/14/22 0936 03/14/22 1330 NA 134* 131* 121* 123* 121* K 4.4 4.5 4.8 -- -- CL 108 103 95* -- -- CO2 21* 21* 20* -- -- BUN 11 13 15 -- -- CREATININE 0.45* 0.46* 0.40* -- -- MG 1.8 1.7 1.6* -- -- PHOS 4.0 4.6* 4.4 -- -- Lab Results Component Value Date ALT 152 (H) 03/14/2022 AST 145 (H) 03/14/2022 ALKPHOS 124 03/14/2022 CBC: Recent Labs 03/12/22 0632 03/13/22 0644 03/14/22 0624 WBC 3.27* 3.44* 4.56 HGB 9.0* 9.0* 9.9* PLT 144 143 164 Imaging Reviewed: MR Head w/o Contrast 03/08 Impression: ?? 1. No acute intracranial pathology. 2. Chronic findings, as above. MR C-spine w/o Contrast 03/08 Impression: ?? No acute findings in the cervical spine. 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 ?? At this time there is not a unifying diagnosis though AED medication reaction/polypharmacy is of high suspicion. Weakness is improving with holding sedating meds (olanzapine), treatment for UTI, and PPN. ?? Less common etiologies for her profound weakness should also be considered given her profound weight loss in recent months and absolute GI immotility >1 month, including autoimmune or broader infectious etiologies, and neurogenic. She continues to be profoundly weak though improved from previousdays. Additional neuro imaging (MR head and neck) did not show any concerning abnormalities or evidence of motor neuron disease. Appreciate ongoing neuro support. Plan Global weakness, severe malnutrition, fatigue/ severe colonic immobility /lack of rectal tone: MR head and cervical spine above. MR thoracic spine cancelled per unremarkable findings in other imaging. HIV and hep C serologies negative, CK has been negative, TSH/T4 WNL. HERRERA, ANCA, SSA/SSB antibody, and rheumatoid factor negative. Increased somnolence and agitation over past 24h. Etiology remains uncertain, discussing with Dr. Polk of Neurology. - PPN initiated orders placed to continue today - Nutrition consulted - FI[employer] FORESTER peyton appreciated - Neurology consulted, appreciate recommendations - Continue to hold lamotrigine and hold AUTOMOTIVE PARTS CLERK olanzapine - Myeloperoxidase ab and proteinase 3 ordered and pending - Valproate level from 03/11 still pending - Discontinue Oxcarbazepine PO 300mg BID - Daily CMP - EEG today - Discontinued apixaban and will undergo LP as early as Saturday 03/17 (procedure and lab orders have been entered) - Start pregabalin 50mg BID - Lorazepam 1mg IV q6h x4 Acute on chronic symptomatic hyponatremia: Sudden drop in past 24h. Likely at least partially due to starting oxcarbazepine. Unclear if her increased confusion and gait disturbances are due to this but it should be suspected at this time. - S/p 100mL of 3% saline, repeat as needed - Checking Na q4h, goal of ~131 today (can increase quickly since we know that she was at this level within the past 24h) - Discontinue oxcarbazepine - Check urine sodium, urine osmolality, and serum osmolality - Would transfer to the ICU if sodium drops below 120 Complicated UTI/Urinary retention: Cultures show proteus. - Continue Reyes (placed in ED 03/03/2022) - Continue ceftriaxone x7 days (03/07-03/14) ?? 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 Anxiety: - Continue decreased dose of olanzapine - Continue propranolol - Continue wellbutrin - Consider changing olanzapaine to Abilify (aripiprazole) for management of anxiety in the setting of her current weakness/neurologic presentation. ?? Electrolyte abnormalities: Improving hypokalemia, hypomagnesemia, and hypocalcemia - Trend - Replete PRN - Closely monitor electrolytes and for refeeding syndrome ?? Facial Rash: Improving. Possible drug reaction to lamotrigine - Medication adjustments as above ?? Constipation: - Daily enemas - MiraLax as tolerated - lactulose - bid senna VTE Prophylaxis SCDs Discharge Plan Pending course Consults Neurology I spent more than 35 minutes in direct floor time solely dedicated to caring for this patient todayincluding >50% of time spent in counseling and coordination of care. Time spent in review of themedical chart, review of labs, discussion with consultants, disease counseling and treatment planning with the patient. Total critical care time, exclusive of procedures: 60 minutes of critical care time. All time was spent on the patient's care unit and includes (but is not limited to) evaluation of the patient, reviewing the medical chart, managing medical interventions, discussing with consultants and determiningtreatment decisions. Time was necessary due to a high probability of imminent or life- threatening deterioration in the patient's condition that placed the the patient at risk of decompensation and due to neurological and endocrine collapse. JV KESSLER MD 03/14/2022 15:18 * Marifer Lyman - 03/14/2022 1423 EDT Nutrition Follow-Up Note S: Patient lethargic. Trying to communicate with this RD, but difficult to understand at times. Was able to agree to a strawberry milkshake and seemed excited by this. O: Diet Order: :Dysphagia Level 5 (Minced and Moist with Thin Liquids PPN Rx: 680 kcal + 250 ml 20% IV lipid Height: 170.2 cm (67) Weight : 59 kg (130 lb 1.1 oz) Body mass index is 20.37 kg/m??. Wt Readings from Last 12 Encounters: 03/14/22 59 kg (130 lb 1.1 oz) 02/22/22 59 kg (130 lb) 02/02/22 57.5 kg (126 lb 12.2 oz) 01/16/21 72.6 kg (160 lb) 09/14/20 79.8 kg (176 lb) 07/27/20 79.8 kg (176 lb) 07/16/20 80 kg (176 lb 4.8 oz) 07/12/20 77.2 kg (170 lb 3.1 oz) 07/06/20 78.5 kg (173 lb) 05/30/20 78.5 kg (173 lb) 05/11/20 78.5 kg (173 lb) 04/27/20 78.5 kg (173 lb) Lab Results Component Value Date/Time NA 123 (LL) 03/14/2022 09:36 K 4.8 03/14/2022 06:24 CO2 20 (L) 03/14/2022 06:24 CL 95 (L) 03/14/2022 06:24 BUN 15 03/14/2022 06:24 CREATININE 0.40 (L) 03/14/2022 06:24 GLUCOSEPOC 102 (H) 03/14/2022 06:57 CALCIUM 8.5 03/14/2022 06:24 PHOS 4.4 03/14/2022 06:24 MG 1.6 (L) 03/14/2022 06:24 Estimated Needs: 7409-3372 kcals/day (30-35 kcals/kg) 71-89 (1.2-1.5 grams/kg) A: 52 y.o.??female??admitted with AMS and now with principle diagnosis of global weakness and encephalopathy.??Remains at high nutritional complexity given meeting criteria for malnutrition on admission(see criteria below) and currently receiving PPN. Patient presents on admission with severe malnutrition in the context of acute illness or injury related to functional decline as evidenced by the following indicators. -Estimated intake <50% of estimated needs x 2 wks AUTOMOTIVE PARTS CLERK -Severe muscle depletion noted in the shoulder/acromion, scapular and clavicular regions -Severe fat depletion noted in the triceps region Patient also noted to have ~19% TBW loss x 1 year per available WT Hx. Patient's weight has been stable x 1 week during this admission. Patient has been receiving PPN since 03/08 and reliant on this nutrition support to meet calorie and protein needs. Patient has demonstrated small improvements in her PO intakes over the past week, but currently only tolerating small bites and sips at best. OT following given patient's self feeding difficulty. Patient was not able to be aroused for OT therapy today per OT Contact note. FIRE OPERATIONS FORESTER also following and downgraded patient's diet today from soft and bite sized to minced and moist. PPN providing 66% kcal and 100% protein needs. Suspect patient not currently reaching remaining kcal needs with PO intakes. Will need to determine termite control technician nutrition plan for patient given day 7 on PPN. Given patient demonstrating need for ongoing nutrition support, would recommend consideration of PICC placement and initiation of CPN to better meet kcal needs and for customized electrolyte adjustments. P: -Provide??Dysphagia??diet as ordered. Texture modifications per FIRE OPERATIONS FORESTER. -Continue PPN as ordered.??Consider PICC placement and transition to CPN given Day 7 on PPN. -Monitor electrolytes and replete outside of PPN as needed. -Providing High kcal/High protein Items on meal trays -Monitor PO intakes/tolerance, GI symptoms, labs, skin -RD following Marifer Rocha MS, RD, CD, CNSC Marifer Rocha MS, RD, CD, CNSC * Olivia Frazier OT - 03/14/2022 1419 EDT [facility] Occupational Therapy Contact Note Date of Service: 03/14/2022 Attempted to see pt for OT this date. Pt asleep, unable to arouse, nurse attending, pt receiving IVmeds/fluids. Will follow up tomorrow to cont OT as appropriate. OLIVIA FRAZIER OT, 03/14/2022, 14:19 * Herrera Manrique 03/14/2022 0931 EDT [facility] Speech-Language Pathology Daily Swallow Encounter Note Date of Onset: 03/07/22 FIRE OPERATIONS FORESTER Diagnosis: Dysphagia, oropharyngeal phase Medical Diagnosis: Altered mental status, UTI Initial Evaluation Date: 03/08/22 Subjective/Objective Subjective Pt presented as very disoriented, confused, and fatigued throughout today's session. Of note, pt attempted to drink from hand when not holding a cup several times. Pt did not appear to realize she was not drinking/holding cup and continued to try to drink until stopped by FIRE OPERATIONS FORESTER. Objective Date of Service: 03/14/2022 Time In: 0830 Total Treatment Time: 15 minutes Pt was seen upright during the morning meal. Swallow function was trialed with thin liquid, oatmeal, custard, and one bite of banana. FIRE OPERATIONS FORESTER fed pt all trials, pt unable to self-feed. Pt took 5 sips of thin liquid. No overt s/sx of airway compromise observed. Hyolaryngeal excursion appears within functional limits. Pt demonstrated inability to drink through straw when one was provided, likely d/t confusion. Pt took 1 bite of oatmeal and 2 bites of custard. In all three trials, pt presented with prolonged bolus formation/manipulation. Hyolaryngeal excursion appears within functional limits. Pt took 1 bite of banana; presented with prolonged mastication and poor bolus formation. Pt required liquid to clear bolus. Pt observed to fatigue throughout meal. Goals -Patient will demonstrate optimum safety and efficiency of swallowing function for highest diet/liquid consistencies as indicated by skilled intervention or radiographically. (by date:03/15/22) -Tolerate??thin??liquids without evidence of coughing, choking, throat ??clearing, wet voice, etc...in : 95%(??19/??20) of observed swallows using compensatory swallow strategies with??min??cues. (bydate: 03/13/22) pt tolerating thin liquids. -Tolerate??regular??consistency diet without overt s/s of dysphagia in 95??% ( 19??/ 20) of observed swallows using strategies with??min??cues. ??(by date 03/13/22) *Pt currently on Level 6 (soft/bitesized) -Verbalize compensatory swallow strategies with??min??cues 90% accuracy. (by date??03/13/22) Patient/Family Education: Unable to provide education secondary to patient fatigue Assessment/Plan Assessment/Clinical Impressions Assessment: Pt presents with a worsening oropharyngeal phase dysphagia characterized by prolonged bolus manipulation and formation for more textured foods, complicated by pt worsening cognitive status. Pt continues to tolerate thin liquids with no overt s/sx of airway compromise. Pt observed to fatigue during limited solid trials. Lower diet level may provide pt ability to eat larger amounts of food before fatiguing. Recommend diet downgrade to Minced and Moist. Pt will also benefit from full assist with feeding, as she is unable to independently self-feed. Pt will continue to benefit from FIRE OPERATIONS FORESTER intervention for diet modification and strategy development for this hospital stay. Plan/Recommendations Full assist with feeding Current Diet: Minced and Moist; Thin liquids HERRERA MANRIQUE 03/14/2022 9:32 Cosigned by Estela Ho SLP at 03/14/2022 10:16 EDT Associated attestation - Estela Ho SLP - 03/14/2022 1016 EDT ERIKA NORMAN was present throughout the entire session and directed the care of the patient by the therapy student. ERIKA NORMAN 03/14/2022 10:16 * Brayan Polk MD - 03/14/2022 0904 EDT Brief neurology update Nursing and hospitalist reporting Ynes was more confused overnight and trying to get out of bed.She was given 1mg lorazepam and some olanzapine with good effect temporarily. To summarize, she wasadmitted after repeated ED evaluations for nausea and vomiting and progressive encephalopathy. I was unsure if this started when we added a slow titration of lamotrigine to her outpatient zonisamide 200mg daily and lacosamide 50mg twice a day, so we stopped lamotrigine. Higher doses of zonisamide had given her lethargy and poor appetite, and higher doses of lacosamide were possibly causing ataxia, which is why we were trying to switch to lamotrigine. She has previously failed levetiracetam, brivaracetam and topiramate for side effects. Since admission we tried depakote but her liver enzymes started rising quickly. We switched to oxcarbazepine but her sodium dropped overnight from 131 to 121last night after starting it yesterday. Will attempt an EEG today if our tech is available in case her worsening is due to subclinical focal seizures. Recommendations -stop oxcarbazepine -stop zonisamide -for now continue lacosamide 50mg BID -Schedule 1mg lorazepam every 6 hrs for 4 doses -start pregabalin, give 50mg x1 now and this evening start 50mg BID -order EEG -continue to trend liver enzymes and sodium -ask if anesthesia could perform lumbar puncture, in the absence of an alternate clear explanation for her encephalopathy. Routine studies of cell count and differential, protein, glucose, and hold CSF order for at least 10cc in case further testing is needed. Brayan Polk MD * Trish Loco RN - 03/13/2022 1815 EDT Patient found slipped out of bed on the floor at this time with bed alarm in place. Dr. Kessler aware along with charge and slot supervisor. safe report done. Vitals stable. Patient has abrasion to right knee. * Shaylee Salazar RD - 03/13/2022 1651 EDT Brief nutrition note Dysphagia 6 diet with thin liquids appropriate per FIRE OPERATIONS FORESTER. Mental status, dysarthria waxes/wanes per IDT. PO intake remains very limited, consuming 0-25% of recorded meals. PPN remains appropriate. RD following Shaylee Salazar MS, RD, CD * Olivia Frazier OT - 03/13/2022 1641 EDT [facility] [place] Occupational Therapy Encounter Note Date of Service: 03/13/2022 SUBJECTIVE: Patient is currently having difficulty with: somnolence Patient/caregiver states: Are you Kassandra? OBJECTIVE: Interventions Completed Today: Time: 0716-4531 Total Treatment Time (minutes): 20 Timed Code Treatment Minutes: 20 Procedures: Self-care/home management Self-Care/Home Management 1: Pt asleep, but able to arouse. Pt appeared confused, trying to move inbed. Moved bedrail and encouraged pt to sit EOB for therapy. Faciliated pt transition supine to sitwith cues to legs and upper body, pt required mod A overall, but able to attain upright sit and continue to sit unsupported with CGA. Pt shifted weight and scooted to EOB, needing intervention to notscoot too far. Noted sheets soiled with BM. Nsg in to assist with changing sheets. Prompted pt to stand, pt max A for static stand for less than one min. Pt c/o fatigue and assisted back to supine with mod A. Pt rolled to right side and scooted up in bed with min A. Self-Care/Home Management 2: Orientation training: oriented pt to place and therapist name. Self-Care/Home Management 3: Encouraged pt to eat or drink. Pt declined, stating she did not want anything. Patient/Family Education: functional transfer training ASSESSMENT: Pt confused today, very limited verbalizations, but participated in therapy and was able to mobilize well in the bed, sit with little support, stand with max A. Pt continues to present with significant weakness , left UE >Right. Continue to strongly recommend rehab. PLAN: Next Session to Include: ADL training OLIVIA FRAZIER OT, 03/13/2022, 16:52 * Jv Kessler MD - 03/13/2022 1503 EDT Medicine Progress Note Service Date: 03/13/22 Admit Date: 03/07/2022 Reason for Admission: 52 y.o. female admitted with a chief complaint of altered mental status and now with a principal diagnosis of global weakness, encephalopathy. 24 Hour Events: - ANCA Interpretation: Negative Subjective/Objective Subjective - Increased dysarthria today but she expresses that she is continuing to feel better Review of Systems A ten point review of systems was performed. Pertinent positives are listed above, all others are negative. Objective Vital Signs BP 129/88 (BP Cuff Location: Left arm, BP Patient Position: Supine) Pulse 104 Temp 36.3 ??C (97.4 ??F) (Oral) Resp 18 Ht 170.2 cm (67) Wt 55.9 kg (123 lb 4.8 oz) SpO2 97% BMI 19.31 kg/m?? Physical Exam GEN: alert, cooperative, no distress, appears stated age HEENT: MMM, PERRL, EOMI NECK: Supple, no JVD LUNG: CTA BL, good air movement, no increased work of breathing, on room air CV: RRR, Normal S1/S2, No M/R/G ABD: soft, NT/ND; nl bowel sounds; no rebound or guarding, no organomegaly EXTRM: no edema, extremities warm, no cyanosis SKIN: skin color, temperature, turgor normal. No rashes or lesions. NEURO: Alert, CN 2-12 grossly intact, moving all extremities. Unable to say where she is or the current month. Decreased sensation over left leg and left, lower face. Strength 5/5 in upper extremities in all muscle groups. Strength 3/5 for hip flexors bilaterally (unable to lift legs off the bed orkeep the up if I lifted them), dorsiflexion, plantar flexion and knee extension are 5/5 bilaterally. PSYCH: Normal memory, judgment, insight, mood, & effect Medications Reviewed in EPIC Labs Reviewed: BMP: Recent Labs 03/11/22 0628 03/12/22 0632 03/13/22 0644 NA 134* 134* 131* K 4.3 4.4 4.5 CL 107 108 103 CO2 22 21* 21* BUN 11 11 13 CREATININE 0.45* 0.45* 0.46* MG 1.7 1.8 1.7 PHOS 4.0 4.0 4.6* Lab Results Component Value Date ALT 125 (H) 03/13/2022 AST 151 (H) 03/13/2022 ALKPHOS 116 03/13/2022 CBC: Recent Labs 03/11/22 0628 03/12/22 0632 03/13/22 0644 WBC 3.08* 3.27* 3.44* HGB 9.1* 9.0* 9.0* PLT 144 144 143 Imaging Reviewed: MR Head w/o Contrast 03/08 Impression: ?? 1. No acute intracranial pathology. 2. Chronic findings, as above. MR C-spine w/o Contrast 03/08 Impression: ?? No acute findings in the cervical spine. 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 ?? At this time there is not a unifying diagnosis though AED medication reaction/polypharmacy is of high suspicion. Weakness is improving with holding sedating meds (olanzapine), treatment for UTI, and PPN. ?? Less common etiologies for her profound weakness should also be considered given her profound weight loss in recent months and absolute GI immotility >1 month, including autoimmune or broader infectious etiologies, and neurogenic. She continues to be profoundly weak though improved from previousdays. Additional neuro imaging (MR head and neck) did not show any concerning abnormalities or evidence of motor neuron disease. Appreciate ongoing neuro support. Plan Global weakness, nausea/vomiting, malnutrition, fatigue/ severe colonic immobility /lack of rectal tone: MR head and cervical spine above. MR thoracic spine cancelled per unremarkable findings in other imaging. HIV and hep C serologies negative, CK has been negative, TSH/T4 WNL. HERRERA, ANCA, and rheumatoid factor negative. - PPN initiated orders placed to continue today - Nutrition consulted - FIRE OPERATIONS FORESTER peyton appreciated - Continue to hold lamotrigine and hold AUTOMOTIVE PARTS CLERK olanzapine - Autoimmune initial work-up with SSA/SSB still pending (collected 03/08/22), myeloperoxidase ab andproteinase 3 ordered and pending - Appreciate neurology consultation, highly suspicious for medication reaction to AEDs - Valproate level from 03/11 still pending - Oxcarbazepine PO 300mg BID - Daily CMP Complicated UTI/Urinary retention: Cultures show proteus. - Continue Reyes (placed in ED 03/03/2022) - Continue ceftriaxone x7 days (03/07-03/14) ?? 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 Anxiety: - Continue decreased dose of olanzapine - Continue propranolol - Continue wellbutrin - Consider changing olanzapaine to Abilify (aripiprazole) for management of anxiety in the setting of her current weakness/neurologic presentation. ?? Electrolyte abnormalities: Improving hypokalemia, hypomagnesemia, and hypocalcemia - Trend - Replete PRN - Closely monitor electrolytes and for refeeding syndrome Hyponatremia: Mild, in the setting of decreased PO intake. Worse today, may be side effect of starting oxcarbazepine. - Daily CMP ?? Facial Rash: Improving. Possible drug reaction to lamotrigine - Medication adjustments as above ?? Constipation: - Daily enemas - MiraLax as tolerated - lactulose - bid senna VTE Prophylaxis Apixaban Discharge Plan Pending course Consults Neurology I spent more than 35 minutes in direct floor time solely dedicated to caring for this patient todayincluding >50% of time spent in counseling and coordination of care. Time spent in review of themedical chart, review of labs, discussion with consultants, disease counseling and treatment planning with the patient. JV KESSLER MD 03/13/2022 15:03 * Eneida Tafoya, FIRE OPERATIONS FORESTER - 03/13/2022 1349 EDT [facility] [place] Speech-Language Pathology Swallowing Encounter Note Date of Onset: 03/07/22 FIRE OPERATIONS FORESTER Diagnosis: Dysphagia, oral phase: Medical Diagnosis: Altered mental status, UTI Initial Evaluation Date: 03/08/22 Subjective/Objective Subjective I could have some of that re: milk Objective Date of Service: 03/13/2022 Time In: 0855 Total Treatment Time: 10 min Intervention: Pt seen for morning meal, sitting upright in bed. Pt observed to have a piece of egg stuck between bottom teeth and cheek on right side. Pt agreeable to sips of milk which provided goodoral clearance. Pt took 6 sip of thin liquid milk. No s/s of aspiration noted, sightly delayed swallow trigger noted. Pt reported she had a bite of eggs earlier, but not agreeable to trials of solidsas she reported she didn't want anything more to eat. Goals -Patient will demonstrate optimum safety and efficiency of swallowing function for highest diet/liquid consistencies as indicated by skilled intervention or radiographically. (by date:03/15/22) -Tolerate thin liquids without evidence of coughing, choking, throat clearing, wet voice, etc...in : 95%( 19/ 20) of observed swallows using compensatory swallow strategies with min cues. (by date: 03/13/22) pt tolerating thin liquids. -Tolerate regular consistency diet without overt s/s of dysphagia in 95 % ( 19 / 20) of observed swallows using strategies with min cues. (by date 03/13/22) *Pt currently on Level 6 (soft/bite sized) -Verbalize compensatory swallow strategies with min cues 90% accuracy. (by date 03/13/22) Patient/Family Education: Unable to provide education secondary to patient fatigue Assessment/Plan Assessment/Clinical Impressions Assessment: is a 52 y.o. female admitted with UTI, altered mental status, weakness. continues with a mild oropharyngeal phase dysphagia characterized by reduced lingual strength, prolonged mastication, and reduced bolus formation with solid consistencies, and slightly delayed swallow trigger with liquid consistencies. Pt demonstrating tolerance of thin liquids with no s/s of aspiration. Unable to see pt trial solids this date as pt was not agreeable to eating. Recommend continued diet of Level 6 (soft/bite sized) and Level 0 Liquids (thin). Pt would benefit from continued FIRE OPERATIONS FORESTER intervention for diet modification and strategy development. Plan/Recommendations Continue diet as ordered. Continue FIRE OPERATIONS FORESTER. Current Diet: Level 6 diet (Soft/bite sized), Level 0 Liquids (thin) ERIKA Phipps 03/13/2022 13:49 * Mary Abdi, PT - 03/13/2022 1241 EDT [facility] [place] Physical Therapy Progress Note Date of Service: 03/13/2022 SUBJECTIVE: Patient is currently having difficulty with: bed mobility,transfers,dressing,not oriented to place Patient/caregiver states: I did alot OBJECTIVE: In this reporting period 03/08/22 to today, the patient has been seen for physical therapy services.Please refer to the physical therapy notes for specifics on the patient's treatment sessions. Interventions Completed Today: Time: 1132 Total Treatment Time (minutes): 20 Timed Code Treatment Minutes: 20 Procedures: Therapeutic activities Therapeutic Activities Minutes: 20 Therapeutic Activities 1: Pt found in bed, limited verbalizations, said she was tired, agreed to doexercise and work on sitting up. Ther ex BLE needing near full assist from therapist to complete, therapist initiated movement then asked pt to continue pt stopped attempting with this. Completed assisted heel slides, hip abd each LE x10. Pt coughed and BLE responded with extension and scissoring as in hypertonic response, following coughing that was extended no hypertonicity noted with PROM. Initiated rolling with vc to work towards sitting up, pt needed full assist to reach and grasp bed rail, was unable to hold without therapist hand over hand assist, could not demonstrate hip/knee flex orto initiate rolling to either side without therapist full assist plus moda for pelvic and scapular s upport and assist to roll. Pt incontinent stool, SUSPENDER MAKER arrived and therapist participated in rolling pt to replace sheets and reposition, pt continued to need near full support for reaching and rolling. Left with SUSPENDER MAKER. Patient Status at the End of the Therapy Session, The patient was left in the: bed with the: Call farris in reach Patient Status at the End of the Therapy Session Comments: SUSPENDER MAKER present Arousal, Attention, and Cognition: Minimal verbalizations, pt with impaired attention and not able to follow vc consistently. Cardiopulmonary: NA Integumentary/Anthropometric: NA Range of Motion and Joint Integrity: WNL Muscle Performance: BUE grossly 3-/5 observed with functional mobility. BLE with hypertonic response during coughing extensor with scissoring at feet, but no resistance to PROM when not coughing, Grossly 2+/5 LE motor control during mobility Sensation, Reflexes, and Nerve Integrity: NA Neuromotor Function/Development: Noted BLE extensor tone response with coughing in supine Balance, Mobility, and Gait: Needs maxa1 to roll, limited abiltiyt to participate today. Sitting balance impaired per past days treatments, needing moda for balance due to trunk impairment, not able to tolerate sitting today. Maxa2 SPT per nursing attempts. Currently not ambulatory due to trunk and extremity weakness. Self-Care, Home Management, Work, Leisure: NA Patient/Family Education: Activity/Work/Community: Activity modification Mobility, Transfers, and Gait: Mobility training Team Communication Notified: Nurse, Other When: During therapy session, After therapy session By: [id number] communication About: Mobility status ASSESSMENT: Pt was limited in her tolerance today for bed based ther ex and mobility trainining, needing near full assist for rolling and was not able to participate in AROM. Sitting not attempted due to this impaired mobiltiy tolerance today.STR indicated. Short-Term Goals: Time Frame: 03/23/22 Goal: Pt will perform supine to sit transfer independently Status: Initiated Goal: Pt will transfer sit to stand using RW independently Status: Current Goal: Pt will ambulate 10ft using RW independently Status: Not assessed Long-Term Goals: Time Frame: N/A PLAN: Training: Bed mobility training, Transfer training, Gait training, Neuromuscular re-education, Balance training Frequency: Times per week Times Per Week: 3 Intensity: 30-60 minutes, 15-45 minutes Duration: Duration of hospitalization Recommended Discharge Destination: Subacute rehabilitation Next Session to Include: Sitting balance/standing whe walker MARY ABDI, PT 03/13/2022 12:47 * Jv Kessler MD - 03/12/2022 1522 EDT Medicine Progress Note Service Date: 03/12/22 Admit Date: 03/07/2022 Reason for Admission: 52 y.o. female admitted with a chief complaint of altered mental status and now with a principal diagnosis of global weakness, encephalopathy. 24 Hour Events: - HERRERA negative - Rheumatoid factor negative - AST and ALT continuing to rise Subjective/Objective Subjective - Continues to feel better - Left-sided facial numbness is changing but she is unclear if it is improving - Reports that her left leg feels less numb Review of Systems A ten point review of systems was performed. Pertinent positives are listed above, all others are negative. Objective Vital Signs BP 128/89 (BP Cuff Location: Left arm, BP Patient Position: Sitting) Pulse 104 Temp 36.3 ??C (97.3 ??F) (Axillary) Resp 18 Ht 170.2 cm (67) Wt 58.6 kg (129 lb 4 oz) SpO2 98% BMI 20.24 kg/m?? Physical Exam GEN: alert, cooperative, no distress, appears stated age HEENT: MMM, PERRL, EOMI NECK: Supple, no JVD LUNG: CTA BL, good air movement, no increased work of breathing, on room air CV: RRR, Normal S1/S2, No M/R/G ABD: soft, NT/ND; nl bowel sounds; no rebound or guarding, no organomegaly EXTRM: no edema, extremities warm, no cyanosis SKIN: skin color, temperature, turgor normal. No rashes or lesions. NEURO: Alert, CN 2-12 grossly intact, moving all extremities. Unable to say where she is or the current month. Decreased sensation over left leg and left, lower face. Strength 5/5 in upper extremities in all muscle groups. Strength 3/5 for hip flexors bilaterally (unable to lift legs off the bed orkeep the up if I lifted them), dorsiflexion, plantar flexion and knee extension are 5/5 bilaterally. PSYCH: Normal memory, judgment, insight, mood, & effect Medications Reviewed in EPIC Labs Reviewed: BMP: Recent Labs 03/10/22 0711 03/11/22 0628 03/12/22 0632 NA 135* 134* 134* K 4.4 4.3 4.4 CL 108 107 108 CO2 21* BUN 10 11 11 CREATININE 0.46* 0.45* 0.45* MG 1.7 1.7 1.8 PHOS 4.1 4.0 4.0 Lab Results Component Value Date ALT 85 (H) 03/12/2022 AST 145 (H) 03/12/2022 ALKPHOS 114 03/12/2022 CBC: Recent Labs 03/10/22 0712 03/11/22 0628 03/12/22 0632 WBC 3.73* 3.08* 3.27* HGB 9.5* 9.1* 9.0* PLT 152 144 144 Imaging Reviewed: MR Head w/o Contrast 03/08 Impression: ?? 1. No acute intracranial pathology. 2. Chronic findings, as above. MR C-spine w/o Contrast 03/08 Impression: ?? No acute findings in the cervical spine. 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 ?? At this time there is not a unifying diagnosis though AED medication reaction/polypharmacy is of high suspicion. Weakness is improving with holding sedating meds (olanzapine), treatment for UTI, and PPN. ?? Less common etiologies for her profound weakness should also be considered given her profound weight loss in recent months and absolute GI immotility >1 month, including autoimmune or broader infectious etiologies, and neurogenic. She continues to be profoundly weak though improved from previousdays. Additional neuro imaging (MR head and neck) did not show any concerning abnormalities or evidence of motor neuron disease. Appreciate ongoing neuro support. Plan Global weakness, nausea/vomiting, malnutrition, fatigue/ severe colonic immobility /lack of rectal tone: MR head and cervical spine above. MR thoracic spine cancelled per unremarkable findings in other imaging. HIV and hep C serologies negative, CK has been negative, TSH/T4 WNL. HERRERA and rheumatoid factor negative. - PPN initiated orders placed to continue today - Nutrition consulted - [employer] peyton appreciated - Continue to hold lamotrigine and hold [employer] olanzapine - Autoimmune initial work-up with ANCA, SSA/SSB still pending (collected 03/08/22), myeloperoxidase ab and proteinase 3 ordered and pending - Appreciate neurology consultation, highly suspicious for medication reaction to AEDs - Valproate level from 03/11 still pending but AST and ALT have been steadily rising, Dr. Polk recommended discontinuing Valproate - Oxcarbazepine PO 600mg x1 then 300mg BID starting tomorrow - Daily CMP Complicated UTI/Urinary retention: Cultures show proteus. - Continue Reyes (placed in ED 03/03/2022) - Continue ceftriaxone x7 days (03/07-03/14) ?? 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 Anxiety: - Continue decreased dose of olanzapine - Continue propranolol - Continue wellbutrin - Consider changing olanzapaine to Abilify (aripiprazole) for management of anxiety in the setting of her current weakness/neurologic presentation. ?? Electrolyte abnormalities: Improving hypokalemia, hypomagnesemia, and hypocalcemia - Trend - Replete PRN - Closely monitor electrolytes and for refeeding syndrome Hyponatremia: Mild, in the setting of decreased PO intake. Improving with PPN. - Daily CMP ?? Facial Rash: Improving. Possible drug reaction to lamotrigine - Medication adjustments as above ?? Constipation: - Daily enemas - MiraLax as tolerated - lactulose - bid senna VTE Prophylaxis Apixaban Discharge Plan Pending course Consults Neurology I spent more than 35 minutes in direct floor time solely dedicated to caring for this patient todayincluding >50% of time spent in counseling and coordination of care. Time spent in review of themedical chart, review of labs, discussion with consultants, disease counseling and treatment planning with the patient. JV KESSLER MD 03/12/2022 15:22 * Mercedes Deluna - 03/12/2022 1441 EDT Pt remains medically active, being followed by neurology for med changes. Plan is for ABDIAZIZ once medically stable. [facility], BM, and BG reviewing. * Marifer Lyman - 03/12/2022 1250 EDT Nutrition Follow-Up Note S: Visited with patient during lunch. Not interested in Mac and Cheese, but agreed to have some soup.Patient demonstrating significant self feeding difficulty. Unable to lift spoon to her mouth to eat soup but was able to lift and sip soup from mug. O: Diet Order:Dysphagia Level 6 (Soft and Bite Sized) with Thin Liquids Height: 170.2 cm (67) Weight : 58.6 kg (129 lb 4 oz) (03/11/22) Body mass index is 20.24 kg/m??. Admission Weight: 127.7lbs (03/07/22) Lab Results Component Value Date/Time NA 134 (L) 03/12/2022 06:32 K 4.4 03/12/2022 06:32 CO2 21 (L) 03/12/2022 06:32 CL 108 03/12/2022 06:32 BUN 11 03/12/2022 06:32 CREATININE 0.45 (L) 03/12/2022 06:32 GLUCOSEPOC 102 (H) 03/11/2022 05:31 CALCIUM 8.0 (L) 03/12/2022 06:32 PHOS 4.0 03/12/2022 06:32 MG 1.8 03/12/2022 06:32 GI: Last BM 03/11 Skin:No open areas noted. ?? Calories needed:??7142-9609?kcal ?MSJ x 1.2-1.3 Protein needed:??70??g ??protein grams/kg:??1.2 A: 52 y.o. female admitted with AMS and now with principle diagnosis of global weakness and encephalopathy. Remains at high nutritional complexity given meeting criteria for malnutrition on admission and currently receiving PPN. PO intakes slowly improving, but not meeting needs. PPN providing ~75% kcal and 100% protein needs. Patient's PO intakes slowly improving. Requires assistance with set up and feeding. OT following. Weight stable since admission. Will continue to monitor clinical course. P: -Provide Dysphagia diet as ordered. Texture modifications per [employer]. -Continue PPN as ordered. -Monitor electrolytes and replete outside of PPN as needed. -Providing High kcal/High protein Items on meal trays -Monitor PO intakes/tolerance, GI symptoms, labs, skin -RD following Marifer Rocha MS, RD, CD, CNSC * Brayan Polk MD - 03/12/2022 0951 EDT Images from the original note were not included. Name: Ynes White : 1970 Date: 03/12/2022 Brief neurology update After initiation of depakote 03/09 Ynes's liver enzymes have been rising consistently. Please stop depakote now. Give oxcarbazepine oral 600mg x1 as soon as able, then at next regular dosing interval start 300mg twice a day. Continue to monitor liver enzymes, and also follow sodium since hyponatremia is one of the more common side effects. Also look out for any new downtrend in RBC, WBC or platelets. Brayan Polk MD * Jv Kessler MD - 03/11/2022 1553 EDT Medicine Progress Note Service Date: 03/11/22 Admit Date: 03/07/2022 Reason for Admission: 52 y.o. female admitted with a chief complaint of altered mental status and now with a principal diagnosis of global weakness, encephalopathy. 24 Hour Events: - None new Subjective/Objective Subjective - Feeling much better than she did yesterday - Still having left-sided facial numbness but it seems to be slightly improving - Feels much more awake today - Denies fever, chills, chest pain, shortness of breath Review of Systems A ten point review of systems was performed. Pertinent positives are listed above, all others are negative. Objective Vital Signs BP (!) 132/96 (BP Cuff Location: Right arm, BP Patient Position: Semi fowlers) Pulse 104 Temp 36.5 ??C (97.7 ??F) (Oral) Resp 18 Ht 170.2 cm (67) Wt 58.6 kg (129 lb 4 oz) SpO2 98% BMI 20.24 kg/m?? Physical Exam GEN: alert, cooperative, no distress, appears stated age HEENT: MMM, PERRL, EOMI NECK: Supple, no JVD LUNG: CTA BL, good air movement, no increased work of breathing, on room air CV: RRR, Normal S1/S2, No M/R/G ABD: soft, NT/ND; nl bowel sounds; no rebound or guarding, no organomegaly EXTRM: no edema, extremities warm, no cyanosis SKIN: skin color, temperature, turgor normal. No rashes or lesions. NEURO: Alert, CN 2-12 grossly intact, moving all extremities. Unable to say where she is or the current month. Decreased sensation over left leg and left, lower face. Strength 5/5 in upper extremities in all muscle groups. Strength 3/5 for hip flexors bilaterally (unable to lift legs off the bed orkeep the up if I lifted them), dorsiflexion, plantar flexion and knee extension are 5/5 bilaterally. PSYCH: Normal memory, judgment, insight, mood, & effect Medications Reviewed in EPIC Labs Reviewed: BMP: Recent Labs 03/09/22 0656 03/10/22 0711 03/11/22 0628 NA 134* 135* 134* K 3.8 4.4 4.3 CL 110 108 107 CO2 21* 22 22 BUN 7* 10 11 CREATININE 0.42* 0.46* 0.45* MG 1.8 1.7 1.7 PHOS 3.1 4.1 4.0 Lab Results Component Value Date ALT 43 (H) 03/11/2022 AST 84 (H) 03/11/2022 ALKPHOS 107 03/11/2022 CBC: Recent Labs 03/09/22 0656 03/10/22 0712 03/11/22 0628 WBC 3.73* 3.73* 3.08* HGB 9.4* 9.5* 9.1* PLT 146 152 144 Imaging Reviewed: MR Head w/o Contrast 03/08 Impression: ?? 1. No acute intracranial pathology. 2. Chronic findings, as above. MR C-spine w/o Contrast 03/08 Impression: ?? No acute findings in the cervical spine. 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 ?? At this time there is not a unifying diagnosis though AED medication reaction/polypharmacy is of high suspicion. Weakness is improving with holding sedating meds (olanzapine), treatment for UTI, and PPN. ?? Less common etiologies for her profound weakness should also be considered given her profound weight loss in recent months and absolute GI immotility >1 month, including autoimmune or broader infectious etiologies, and neurogenic. She continues to be profoundly weak though improved from previousdays. Additional neuro imaging (MR head and neck) did not show any concerning abnormalities or evidence of motor neuron disease. Appreciate ongoing neuro support. Plan Global weakness, nausea/vomiting, malnutrition, fatigue/ severe colonic immobility /lack of rectal tone: MR head and cervical spine above. MR thoracic spine cancelled per unremarkable findings in other imaging. HIV and hep C serologies negative, CK has been negative, TSH/T4 WNL. - PPN initiated orders placed to continue today - Nutrition consulted - [employer] peyton appreciated - Continue to hold lamotrigine and hold [employer] olanzapine - Autoimmune initial work-up with HERRERA, ANCA, SSA/SSB still pending (collected 03/08/22), myeloperoxidase ab and proteinase 3 ordered and pending - Appreciate neurology consultation, highly suspicious for medication reaction to AEDs - Plan to switch to IV antiepilectic (IV valproate sodium) per poor oral intake. -Plan for titration off of current AEDs when valproate at target level (see Dr. Roberts's note 03/09) -Valproate level ordered for early Saturday (03/11) AM prior to AM dose, result is still pending ?? Complicated UTI/Urinary retention: Cultures show proteus. - Continue Reyes (placed in ED 03/03/2022) - Continue ceftriaxone x7 days (03/07-03/14) ?? Hx sinus venous thrombosis c/b hemorrhagic stroke and seizure disorder: - cont [employer] apixaban 2.5mg BID - cont [employer] vimpat - cont [employer] zonisamide - anticipate titrating these off after starting depakote (per Dr. Junior' 03/09 note) - orders placed to begin IV valproate for seizure prevention while inpatient and unable to toleratePO medications - appreciate neuro consultation ?? Anxiety: - Continue decreased dose of olanzapine - Continue propranolol - Continue wellbutrin - Consider changing olanzapaine to Abilify (aripiprazole) for management of anxiety in the setting of her current weakness/neurologic presentation. ?? Electrolyte abnormalities: Improving hypokalemia, hypomagnesemia, and hypocalcemia - Trend - Replete PRN - Closely monitor electrolytes and for refeeding syndrome ?? Facial Rash: Improving. Possible drug reaction to lamotrigine - Medication adjustments as above ?? Constipation: - Daily enemas - MiraLax as tolerated - lactulose - bid senna VTE Prophylaxis Apixaban Discharge Plan Pending course Consults Neurology JV KESSLER MD 03/11/2022 15:53 * Marifer Lyman - 03/11/2022 1103 EDT Nutrition Follow-Up Note S: Patient reports tolerating small things requesting soup and sweet. Having trouble with full sentences given expressive aphasia. O: Diet Order:Dysphagia Level 6 (Soft and Bite Sized) with Thin Liquids PPN Rx: 680 kcal + 250 ml 20% IV lipid Height: 170.2 cm (67) Weight : 58.6 kg (129 lb 4 oz) Body mass index is 20.24 kg/m??. Lab Results Component Value Date/Time NA 134 (L) 03/11/2022 06:28 K 4.3 03/11/2022 06:28 CO2 22 03/11/2022 06:28 CL 107 03/11/2022 06:28 BUN 11 03/11/2022 06:28 CREATININE 0.45 (L) 03/11/2022 06:28 GLUCOSEPOC 102 (H) 03/11/2022 05:31 CALCIUM 7.9 (L) 03/11/2022 06:28 PHOS 4.0 03/11/2022 06:28 MG 1.7 03/11/2022 06:28 GI: Last BM 03/10 Skin:No open areas noted. Calories needed: 6978-4924 kcal MSJ x 1.2-1.3 Protein needed: 70 g protein grams/k.2 A: 52 y.o. female admitted with AMS and now with principle diagnosis of global weakness and encephalopathy. PO intakes slowly improving, but not meeting needs. Patient seems to get overwhelmed by largerquantities of food. Recommend continue PPN as ordered to meet ~75% kcal and 100% protein needs. Patient currently on day 4 PPN. Potassium, phosphorous and magnesium. Persistently low sodium. Unable to adjust electrolyte content of PPN. Will need to consider fdc nutrition support options if POdoes not improve. P: -Provide Dysphagia diet as ordered. Texture modifications per [employer]. -Continue PPN as ordered. -Monitor electrolytes and replete outside of PPN as needed. -Providing High kcal/High protein Items on meal trays -Monitor PO intakes/tolerance, GI symptoms, labs, skin -RD following Marifer Hearngh MS, RD, CD, CNSC * Jv Kessler MD - 03/10/2022 1705 EDT Medicine Progress Note Service Date: 03/10/22 Admit Date: 03/07/2022 Reason for Admission: 52 y.o. female admitted with a chief complaint of altered mental status and now with a principal diagnosis of global weakness, encephalopathy. 24 Hour Events: - None new Subjective/Objective Subjective - Persistent left-sided facial numbness and left leg numbness - Having word-finding difficulties (this is baseline for her) - Speech is more slurred than usual Review of Systems A ten point review of systems was performed. Pertinent positives are listed above, all others are negative. Objective Vital Signs BP (!) 146/85 (BP Cuff Location: Left arm, BP Patient Position: Semi fowlers) Pulse 104 Temp 36.6 ??C (97.8 ??F) (Oral) Resp 17 Ht 170.2 cm (67) Wt 60.2 kg (132 lb 11.2 oz) SpO2 99% BMI 20.78 kg/m?? Physical Exam GEN: alert, cooperative, no distress, appears stated age HEENT: MMM, PERRL, EOMI NECK: Supple, no JVD LUNG: CTA BL, good air movement, no increased work of breathing, on room air CV: RRR, Normal S1/S2, No M/R/G ABD: soft, NT/ND; nl bowel sounds; no rebound or guarding, no organomegaly EXTRM: no edema, extremities warm, no cyanosis SKIN: skin color, temperature, turgor normal. No rashes or lesions. NEURO: Alert, CN 2-12 grossly intact, moving all extremities. Unable to say where she is or the current month. Decreased sensation over left leg and left, lower face. Strength 5/5 in upper extremities in all muscle groups. Strength 0/5 for hip flexors bilaterally (unable to lift legs off the bed orkeep the up if I lifted them), dorsiflexion, plantar flexion and knee extension are 5/5 bilaterally. PSYCH: Normal memory, judgment, insight, mood, & effect Medications Reviewed in EPIC Labs Reviewed: BMP: Recent Labs 03/08/22 0658 03/08/22 1245 03/08/22 1804 03/09/22 0656 03/10/22 0711 NA 132* < > 133* 134* 135* K 2.9* < > 3.9 3.8 4.4 CL 106 < > 108 110 108 CO2 21* < > 22 21* 22 BUN 10 -- -- 7* 10 CREATININE 0.44* -- -- 0.42* 0.46* CALCCA 9.2 -- -- -- -- MG 1.5* -- -- 1.8 1.7 PHOS 2.8 -- -- 3.1 4.1 < > = values in this interval not displayed. Lab Results Component Value Date ALT 26 03/10/2022 AST 46 03/10/2022 ALKPHOS 93 03/10/2022 CBC: Recent Labs 03/08/22 0658 03/09/22 0656 03/10/22 0712 WBC 3.12* 3.73* 3.73* HGB 9.8* 9.4* 9.5* PLT 126* 146 152 Imaging Reviewed: MR Head w/o Contrast 03/08 Impression: ?? 1. No acute intracranial pathology. 2. Chronic findings, as above. MR C-spine w/o Contrast 03/08 Impression: ?? No acute findings in the cervical spine. 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 ?? At this time there is not a unifying diagnosis though AED medication reaction/polypharmacy is of high suspicion. Weakness is improving with holding sedating meds (olanzapine), treatment for UTI, and PPN. ?? Less common etiologies for her profound weakness should also be considered given her profound weight loss in recent months and absolute GI immotility >1 month, including autoimmune or broader infectious etiologies, and neurogenic. She continues to be profoundly weak though improved from previousdays. Additional neuro imaging (MR head and neck) did not show any concerning abnormalities or evidence of motor neuron disease. Appreciate ongoing neuro support. Plan Global weakness, nausea/vomiting, malnutrition, fatigue/ severe colonic immobility /lack of rectal tone: MR head and cervical spine above. MR thoracic spine cancelled per unremarkable findings in other imaging. HIV and hep C serologies negative, CK has been negative, TSH/T4 WNL. - PPN initiated orders placed to continue today - Nutrition consulted - [employer] peyton appreciated - Continue to hold lamotrigine and hold [employer] olanzapine - Autoimmune initial work-up with HERRERA, ANCA, SSA/SSB still pending (collected 03/08/22), myeloperoxidase ab and proteinase 3 ordered and pending - Appreciate neurology consultation, highly suspicious for medication reaction to AEDs - Plan to switch to IV antiepilectic (IV valproate sodium) per poor oral intake. -Plan for titration off of current AEDs when valproate at target level (see Dr. Roberts's note 03/09) -Valproate level ordered for early Saturday (03/11) AM prior to AM dose ?? Complicated UTI/Urinary retention: Cultures show proteus. - Continue Reyes (placed in ED 03/03/2022) - Continue ceftriaxone x7 days (03/07-03/14) ?? Hx sinus venous thrombosis c/b hemorrhagic stroke and seizure disorder: - cont [employer] apixaban 2.5mg BID - cont [employer] vimpat - cont [employer] zonisamide - anticipate titrating these off after starting depakote (per Dr. Junior' 03/09 note) - orders placed to begin IV valproate for seizure prevention while inpatient and unable to toleratePO medications - appreciate neuro consultation ?? Anxiety: - Continue decreased dose of olanzapine - Continue propranolol - Continue wellbutrin - Consider changing olanzapaine to Abilify (aripiprazole) for management of anxiety in the setting of her current weakness/neurologic presentation. ?? Electrolyte abnormalities: Improving hypokalemia, hypomagnesemia, and hypocalcemia - Trend - Replete PRN - Closely monitor electrolytes and for refeeding syndrome ?? Facial Rash: Improving. Possible drug reaction to lamotrigine - Medication adjustments as above ?? Constipation: - Daily enemas - MiraLax as tolerated - lactulose - bid senna VTE Prophylaxis Apixaban Discharge Plan Pending course Consults Neurology JV KESSLER MD 03/10/2022 17:05 * Shaylee Salazar, RD - 03/10/2022 6746 EDT Brief Nutrition Note Pt reports her appetite is not very good. I never know what will work. States her stomach still hurts. Has not noticed that certain foods cause more discomfort than others, all food is the same. Doesn't feel liquids are consistently better tolerated than solids, it depends. Unable to pick a me nu--just send whatever, I will try it. PO intake not meeting needs. Continue PPN. Wgt trending up ~2 kg x 2 days on 03/09, please recheck, monitor daily as able. RD following Shaylee Salazar MS, RD, CD * Ashleigh Barreto, PT - 03/10/2022 1004 EDT [facility] Physical Therapy Encounter Note Date of Service: 03/10/2022 SUBJECTIVE:pt is cooperative , but notes fatigue , Patient is currently having difficulty with: bed mobility,transfers,dressing,not oriented to place Patient/caregiver states: pt notes she fatigues quickly Patient and Caregiver Goals: Move around on my own Patient and Caregiver Goals: Increase functional mobility and strength to be able to walk abd got to rehab then home Patient's Stated Pain Goal: No pain OBJECTIVE: Interventions Completed Today: trnsfer training ,therapeutic activity for balance /strengthening Time: 0850 Total Treatment Time (minutes): 25 Timed Code Treatment Minutes: 25 Therapy Session: A corrective therapy aide was present for the physical therapy session Procedures: Therapeutic activities Therapeutic Activities Minutes: Patient received lying in bed, fatigued , but willing to try to getmoving,transfer lye to sit with modA1, in sitting worked on side to side weight shift,ankle pumps, hip flexion, knee extension 10 reps of each, with CG,then moda2 for sit to stand-needs assist for foot placement and forward weight shift, in stance in walker - Moda1 for trunk stability-worked on side to side weight shift -progressing to lifting alternate feet- staning for 5 minutes, then back to sitting - too fatigued to repeat, in sitting -repeated all ther-ex noted above, then transfer moda1 from sit to lye,instrucrted in heel slides/ankle pumps/glute sets 10 reps of each. Patient/Family Education:ther-ex education in sitting/standing/supine ASSESSMENT: pt cooperative, able to follow directions, displays continued low activity tolerance PLAN: Patient/Family Education: Discharge planning, Family/caregiver education, Patient education Next Session to Include: trial gait in walker ASHLEIGH BARRETO, PT 03/10/2022 10:25 * Mahsa Tegan, PT - 03/09/2022 3111 EDT [facility] Physical Therapy Encounter Note Date of Service: 03/09/2022 Mobility Precautions Activity: Fall risk/precautions, Activity as tolerated, Up with assistance SUBJECTIVE: Patient is currently having difficulty with: Bed mobility, bathing, dressing, toileting Patient/caregiver states: Patient stated she was tired, but she wanted to try physical therapy. Pain Comments: No pain reported. OBJECTIVE: Interventions Completed Today: Time: 1355 Total Treatment Time (minutes): 30 Timed Code Treatment Minutes: 30 Therapy Session: A corrective therapy aide was present for the physical therapy session Co-Treatment With: Occupational therapy Reason for Co-Treatment: To facilitate functional mobility, enhance safety, and conserve energy Procedures: Therapeutic activities Therapeutic Activities Minutes: 30 Therapeutic Activities 1: Patient received sitting up in bed, reporting fatigue, but agreeable to physical therapy intervention. She is able to move all extremities. Tolerated gentle stretch to bilateral ankles to facilitate dorsiflexion, 30 seconds each. Ynes was able to transfer from sitting up in bed to sitting edge of bed with minimal assistance and verbal/tactile cuing for sequence of movements and hand placement. Once sitting edge of bed she was able to maintain balance with close supervision, occasional contact guard. She was ageeable to try standing with a walker, and required moderate asssistance x 2 to transiton with verbal and tactile cues for hand placement, anterior weight sh ift, knee extension, and upright posture. Able to maintain standing for a short period of time. Completed x 2. Required moderate assistance to transition from sitting edge of bed to supine with cuingfor techcnique for scooting. Patient Status at the End of the Therapy Session, The patient was left in the: bed with the: Call farris in reach Patient/Family Education: Mobility, Transfers, and Gait: Bed mobility, Mobility training Recommendations: Discharge recommendations/planning Therapy Specific: Plan of care, Treatment plan/goals Team Communication Notified: Nurse When: Prior to therapy session, After therapy session By: [id number] communication About: Mobility status ASSESSMENT: The patient presents with a physical therapy diagnosis of: Impaired posture, Impaired mobility Ynes demonstrated marked improvement in her ability to participate in physical therapy today. She was more alert and better able to maintain sitting edge of bed with less assistance. She is cooperative and motivated for treatment and to progress. Patient will benefit from continued skilled physical therapy intervention to progress mobility, safety, and independence. Goal: Pt will perform supine to sit transfer independently Status: Progressing Goal: Pt will transfer sit to stand using RW independently Status: Progressing Goal: Pt will ambulate 10ft using RW independently Status: Progressing Time Frame: N/A PLAN: Continue per established treatment plan Frequency: Times per week Times Per Week: 5 Intensity: 30-60 minutes Duration: Duration of hospitalization Interventions May Include: Self-care/home management, Therapeutic activities, Neuromuscular re-education, Therapeutic exercise, Gait training Patient/Family Education: Discharge planning, Recommendations, Role of physical therapy/occupational therapy/rehabilitation Recommended Discharge Destination: Subacute rehabilitation Therapy Specific Services: Physical therapy, Occupational therapy, Speech language pathology Next Session to Include: Bed mobility, try transfer with Filemon Smalls, transfer training, pre gait training. Tegan Bragg, JUWAN 03/09/2022 15:42 * Olivia Frazier, OT - 03/09/2022 1525 EDT [facility] [place] Occupational Therapy Initial Evaluation Note Date of Service: 03/09/2022 Diagnosis: AMS Date of Onset: 03/07/22 Referring Provider: Yung Henderson MD Reason for Referral: Evaluate and treat Mobility Precautions Activity: Fall risk/precautions, Activity as tolerated, Up with assistance SUBJECTIVE: Patient is currently having difficulty with: cognition Patient/caregiver states: Pt indicated more difficulty with thinking OBJECTIVE: Patient Profile: Patient is a 52 y.o. female admitted on 03/07/2022 secondary to Altered mental status, unspecified altered mental status type. The patient lives at [address] [place] [address] [place] [address] Prior Level of Function: Basic Activities of Daily Living - General Basic Activities of Daily Living Comments: intermittent assist, was alone during the day Instrumental Activities of Daily Living - General Level of Assistance Throughout: Supervision Medical/Surgical History: Current: The patient has Back pain; Chronic low back pain; Encounter for insertion or removal of intrauterine contraceptive device; Nicotine dependence, unspecified, uncomplicated; Perimenopausal; Tobacco abuse; Left-sided nontraumatic intracerebral hemorrhage (HCC); Primary hypercoagulable state (HCC- CMS) (HCC); Focal epilepsy (HCC-CMS) (HCC); UTI (urinary tract infection); Altered mental status, unspecified altered mental status type; and Urinary tract infection associated with indwelling urethral catheter, initial encounter (HCC- CMS) ([facility]) on their problem list. Past: The patient has a past medical history of Cerebral venous sinus thrombosis, Exercise involving walking (flat surfaces), History of cranial surgery, History of general anesthesia, Left-sided nontraumatic intracerebral hemorrhage (HCC) (Status post decompressive hemicraniectomy), Memory disorder, and Shoulder joint pain (right ). The patient has no past surgical history on file. Body Functions and Performance Skills Cardiovascular/Respiratory Systems Function: Voice and Speech Functions: Patient is soft spoken, Patient presents with dysarthria Mental Functions: Arousal/Alertness: Alert (but lethargic) Orientation Level: Oriented to person Following Commands: Follows one step commands Inititation: Cues to initiate tasks Processing Speed: Impaired Problem Solving: Assistance required to identify errors made Behavioral Characteristics: Pleasant and cooperative Behavioral Characteristics Comments: flat affect, generally fatigued Sensory Functions: Vision - Basic Assessment Additional Comments: Difficult to ascertain accurate baseline information from pt re: wearing glasses Visual History: Brain injury Current Complaints: Balance difficulty Additional Comments: Appears to have some double vision in central and left quadrants Additional Comments: not able to read clock or name badge correctly Additional Comments: appears to have appropriate peripheral vision Neuromusculoskeletal and Movement Related Functions: Range of Motion: No problems noted Strength Additional Comments: RUE: 3-/5 proximal strength, 3+/5 distal strength; Left UE: 3/5 prox,3+/5 to 4-/5 distal Skin and Related Structure Functions: Areas of Occupation and Performance Skills Basic Activities of Daily Living: Grooming Long Handled [place]: mod A Mobility Additional Comments: mod A x 2 bed supine to sit, mod A x 2 scoot to edge, mod A x 2 sit to stand, max A x 2 sit to supine Instrumental Activities of Daily Living: NT Informed Consent: The patient consented to the Occupational Therapy evaluation. The patient agrees to and understandsthe Occupational Therapy treatment plan and goals. Interventions Completed Today: Time: 0280-1868 Total Treatment Time (minutes): 33 Timed Code Treatment Minutes: 0 Co-Treatment With: Physical therapy Reason for Co-Treatment: To facilitate functional mobility, enhance safety, and conserve energy Patient/Family Education: Mobility, Transfers, and Gait: Mobility training Therapy Specific: Role of occupational therapy, Treatment plan/goals Team Communication Notified: Nurse By: [id number] communication Additional communication about Self-Care Comments: possible use of filemon steady if pt engaged and able to participate Patient Status and Referrals: Patient status ASSESSMENT: Occupational therapy evaluation reveals the following impairments: activity tolerance, standing tolerance, strength, muscle strength, balance, cognition, arousal, coordination, safety awareness These impairments are contributing to the following activity limitations and participation restrictions: independent living skills, functional mobility, self-care, communication management, health maintenance, safety and emergency maintenance The patient's prior level of function was: Supervision Pt very pleasant and cooperative with eval, but demonstrating low activity tolerance. Pt improved since admission, but still far from her baseline. Recommending continued skilled OT and rehab recommended Current status is: below prior level of function The patient's rehabilitation potential is: good Progress may be improved by the following patient strengths: family/social support, previous level of function, home set-up Medical Necessity: occupational therapy is medically necessary [...] function/living situation. Short Term Goals: Time Frame: to be met by 03/16/22 Goal: Pt to complete toileting using walker and commode with min A Status: Initiated Goal: Pt to sit EOB with SBA to complete oral care and grooming tasks with min A Status: Initiated Goal: Pt to demonstrate increased strength in both UE to be able to push self to EOB with CGA and cues Status: Initiated Product Safety Officer Goals: Time Frame: NT PLAN: Continue per established treatment plan Training: Activities of daily living retraining, Transfer training, Adaptive equipment evaluation/education, Assistive devices/equipment training, Cognitive- perceptual retraining, Cognitive retraining for activities of daily living Active Engagement: Therapeutic activities, Therapeutic exercise, Self-care/home management, Focusing/tracking, Fine motor coordination activities, Activity tolerance Frequency: Times per week Times Per Week: 5 Intensity: 30-60 minutes Duration: Duration of hospitalization Interventions May Include: Therapeutic activities, Therapeutic exercise, Self- care/home management,Cognitive function intervention, Standardized cognitive testing Patient/Family Education: Discharge planning, Family/caregiver education, Patient education Recommended Discharge Destination: Subacute rehabilitation Next Session to Include: ADL training OLIVIA FRAZIER OT, 03/09/2022, 16:05 * Caren Gorman - 03/09/2022 1340 EDT Saturday Note: Patient will be here through the weekend as she is not medically ready. CM has made referrals to [facility], Larissa Sterling and [facility]. SNF packet has been started. * Yung Henderson MD - 03/09/2022 1141 EDT [facility] Medicine service Progress Note Service Date: 03/09/2022 Admit Date: 03/07/2022 8:29 Reason for Admission: n/v/weakness 24 Hour Events: -MR head and neck negative for acute process -ppn started yesterday -urine growing proteus Subjective Patient has improved and is able to talk without much difficulty this morning. She reports that shefeels stronger and that she has less numbness/weakness in her face. She reports that she did not have an enema yesterday as she was too tired after her late MR scans. She has not had a bowel movement since her enema on 03/07, so plan to continue daily enema until able to have a bowel movement independently. Review of Systems Negative chest pain, shortness breath, headache Positive for nausea, vomiting, constipation, weakness, mild dysarthria (improved from yesterday) Objective VITALS: BP 121/85 (BP Cuff Location: Left arm, BP Patient Position: Lying right side) Pulse 104 Temp 36.7 ??C (98.1 ??F) (Axillary) Resp 16 Ht 170.2 cm (67) Wt 60.2 kg (132 lb 11.2 oz) SpO2 99% BMI 20.78 kg/m?? I&O: Intake/Output Summary (Last 24 hours) at 03/09/2022 1141 Last data filed at 03/09/2022 0538 Gross per 24 hour Intake -- Output 2550 ml Net -2550 ml PHYSICAL EXAM Gen: Chronically ill-appearing woman lying in bed HEENT: Dry mucous membranes, no scleral icterus Neck: supple, no JVD CV: Tachycardic, regular rhythm, no m/r/g Pulm: CTAB, good air movement, no w/r/r Abd: soft, NTND, no HSM, no pain on palpation today Extrem: warm and well perfused, no cyanosis or edema Psych: Somewhat slow mentation though alert and oriented x3. Answers questions appropriately : Reyes placed for urinary retention Neuro: Dysarthria much improved from yesterday, continues to have 3/5 lower extremity strength, 4/5upper extremity strength Skin: Small periorbital papular rash is smaller in size compared to yesterday. No bullae or mucosalinvolvement, and not currently concerning for SJS. LABS No results for input(s): GLUCOSEFINGE in the last 72 hours. Lab Results Component Value Date HGBA1C 5.4 02/14/2020 Recent Labs 03/07/22 0842 03/08/22 0658 03/09/22 0656 WBC 4.50 3.12* 3.73* RBC 3.94 2.93* 2.83* HGB 13.1 9.8* 9.4* HCT 38.6 28.8* 27.7* MCV 98 98 98 PLT 160 126* 146 Recent Labs 03/07/22 0842 03/07/22 1104 03/08/22 0658 03/08/22 1245 03/08/22 1804 03/09/22 0656 NA 137 -- 132* 134* 133* 134* K 4.1 -- 2.9* 2.7* 3.9 3.8 CL 105 -- 106 111* 108 110 CO2 22 -- 21* 20* 22 21* BUN 18 -- 10 -- -- 7* CREATININE 0.61 -- 0.44* -- -- 0.42* CALCCA -- 9.3 9.2 -- -- -- MG 1.7 -- 1.5* -- -- 1.8 PHOS -- -- 2.8 -- -- 3.1 Recent Labs 03/07/22 0842 03/08/22 0658 03/09/22 0656 ALKPHOS 107 80 73 AST 47* 23 42 ALT 23 16 21 TBIL 0.8 <0.2 <0.2 No results for input(s): PROTIME, PTT, INR in the last 72 hours. No results for input(s): PHISTAT, PCOISTAT, POISTAT, V4VDJDDT, BEART, POCFIO2 in the last 72 hours. Recent Labs 03/07/22 0842 CK 90 TROPONINI <0.034 Recent Labs 03/07/22 0944 LABSPEC <=1.005 PHUR 8.5* GLUCOSEU Negative BILIRUBINUR 2+* KETONES 1+* BLOODU 3+* MEDICATIONS SCHEDULED aspirin chewable, 81 mg, oral, DAILY buPROPion, 150 mg, oral, DAILY cefTRIAXone (ROCEPHIN) IVPB (1 g premade bag), 1,000 mg, intravenous, Q24H COVID-19 mRNA, oliver ready to use vaccine (PF), 0.3 mL, intramuscular, ONCE divalproex ER, 500 mg, oral, BID influenza vaccine quad (PF) (6 mos+), 0.5 mL, intramuscular, ONCE lacosamide, 50 mg, oral, BID lactulose, 30 mL, oral, DAILY metoclopramide, 5 mg, intravenous, Q6H propRANolol, 10 mg, oral, BID ramelteon, 8 mg, oral, QHS senna, 2 Tablet, oral, QHS thiamine, 100 mg, intravenous, DAILY zonisamide, 200 mg, oral, DAILY PRN acetaminophen, 975 mg, Q6H PRN calcium carbonate, 2 Tablet, QID PRN dextrose 5%, 0-125 mL/hr, PRN lidocaine (PF), 2 mg, PRN LORazepam, 0.5 mg, Q4H PRN ondansetron (PF), 4 mg, Q4H PRN polyethylene glycol 3350, 17 g, Daily PRN MICROBIOLOGY Urine sample from 03/07/2022 positive for proteus susceptible for ceftriaxone. Will continue ceftriaxone 1g/day IV. Blood culture from 03/07/2022 pending. NEW IMAGING Result Date: 03/08/2022 MR Head - No acute intracranial pathology. Finding consistent with prior imaging. MR Cervical Spine - No acute findings in the cervical spine. Result Date: 03/07/2022 MR Lumbar spine - No acute findings in the lumbar spine to explain clinically suspected cauda equina syndrome XR Abdomen - Oral contrast in the left colon Patient's last oral contrast study was completed on 01/30/2022 which suggests that the patient has had reduced gut motility >5 weeks. Assessment Ynes White is a 52 y.o. female with a history significant for sinus venous thrombosis c/b left intracerebral hemorrhage requiring surgical evacuation, with resultant left temporoparietal encephalomalacia and associated seizures who presented to the ED for a 2 week history of persistent weakness, numbness, urinary retention, nausea/vomiting, and constipation. ?? Admitted to the hospital medicine service on 03/07/2022 with complicated proteus UTI, toxic/metabolic acute on chronic encephalopathy, generalized weakness, severe urinary/fecal retention >1 month,and profound decrease in functional status. At this time there is not a unifying diagnosis though AED medication reaction/polypharmacy is of high suspicion. Weakness is improving with holding sedating meds (olanzapine), treatment for UTI, and PPN. Less common etiologies for her profound weakness should also be considered given her profound weight loss in recent months and absolute GI immotility >1 month, including autoimmune or broader infectious etiologies, and neurogenic. She continues to be profoundly weak though improved from previousdays. Additional neuro imaging (MR head and neck) did not show any concerning abnormalities or evidence of motor neuron disease. Appreciate ongoing neuro support. Principal Problem: Altered mental status, unspecified altered mental status type Active Problems: UTI (urinary tract infection) Urinary tract infection associated with indwelling urethral catheter, initial encounter ([facility] ([facility]) Plan by problem #Global weakness, nausea/vomiting, malnutrition, fatigue/ severe colonic immobility /lack of rectaltone: -- PPN initiated orders placed to continue today -- Nutrition consulted -- XR abdomen as above -- Electrolyte abnormalities corrected with nutrition and IV supplementation -- [employer] FORESTER peyton appreciated -- Continue to hold lamotrigine and hold AUTOM[employer] olanzapine -MR head and cervical spine above. MR thoracic spine cancelled per unremarkable findings in other imaging. - Autoimmune initial work-up with HERRERA, ANCA, SSA/SSB still pending (collected 03/08/22), myeloperoxidase ab and proteinase 3 ordered and pending - HIV and hep C serologies negative - CK has been negative --TSH/T4 WNL - Appreciate neurology consultation, highly suspicious for medication reaction to AEDs - Plan to switch to IV antiepilectic (IV valproate sodium) per poor oral intake. -Plan for titration off of current AEDs when valproate at target level (see Dr. Roberts's note 03/09) -Valproate level ordered for early Saturday (03/11) AM prior to AM dose #Complicated UTI/Urinary retention -- Continue Reyes (placed in ED 03/03/2022) -- Cultures show proteus susceptible to current treatment (ceftriaxone) -- Continue ceftriaxone x7 days (03/07-) #Hx sinus venous thrombosis c/b hemorrhagic stroke and seizure disorder --cont [employer]ERK apixaban 2.5mg BID --cont [employer]ERK vimpat --cont [employer]ERK zonisamide --anticipate titrating these off after starting depakote (per Dr. Junior' 03/09 note) --orders placed to begin IV valproate for seizure prevention while inpatient and unable to toleratePO medications --appreciate neuro consultation #Tachycardia likely BB withdrawal -- Restart [employer]ERK propranolol (primarily prescribed by PCP for anxiety management), she has been taking this multiple times/day [employer] though is PRN med for anxiety per PCP #Anxiety - Called PCP Dr. Hairston to discuss AUT[employer]ERK psych care. Patient is being treated with olanzapine, propranolol, and wellbutrin to manage her anxiety and PTSD. We decreased her olanzapine due to excess sedation. Propranolol to be restarted as patient became tachycardic with discontinuation while inpatient. - Called Dr. Vizcarra (psychiatrist) and discussed [employer] medications for anxiety. Patient is taking 30 mg daily of olanzapine and discussed that we discontinued this medication while inpatient due to profound weakness/sedation. Discussed that next steps would be to restart on a lower dose of olanzapine closer to discharge or if she begins feeling anxious while admitted. Another alternative discussed was Abilify (aripiprazole) for management of anxiety in the setting of her current weakness/neurologic presentation. #Electrolyte abnormalities: -- Hypokalemia managed with PPN and IV potassium -- Hypomagnesemia managed with PPN and IV magnesium -- Hypocalcemia managed with PPN and IV calcium - Closely monitor electrolytes and for refeeding syndrome #Facial Rash (possible drug reaction to lamotrigine) -- Continue to monitor, improving - Medication adjustments as above #Constipation -- Abdominal XR above -- Repeat enema today, continue daily -- MiraLax as tolerated --lactulose --bid senna Miscellaneous FEN: DIET D[place]SPHAG[place] [facility] [place]PN [facility] P[place] PPx: Apixaban [employer] Code: Full Code Discharge Plan: Pending clinical course Consults: Neurology Adriana Anaya 03/09/2022 11:41 Attestation: I was present with the medical student for the history, exam, and medical decision making documented. I have personally performed my own physical exam and medical decision making. I haveverified and agree with (or, as indicated, have edited) the medical student's documentation. I spent more than 35 minutes in direct floor time solely dedicated to caring for this patient todayincluding >50% of time spent in counseling and coordination of care. Time spent in review of themedical chart, review of labs, review of imaging, discussion with consultants, discharge planning, disease counseling and treatment planning with the patient and patient's family . Yung Henderson MD * Brayan Polk MD - 03/09/2022 0919 EDT Patient: Ynes White Date: 03/09/2022 : 1970 Brief Neurology update. Ynes has not had more than 24 hours of fluid replenishment and antibiotics for UTI and does not look significantly better. She is extremely fatigued diffusely. [employer]ER evaluation notable for oropharyngeal dysphagia likely due to overall weakness. CXR showed retained contrast from CT done a month ago. She has also developed alopecia. She is likely very malnourished. On the possibility her GI symptoms may be related to medication side effects, we will switch her antiseizure medications relatively quickly while admitted. She has diffuse weakness including facial and in all 4 limbs. Present BR, biceps, and patellar reflexes bilaterally. Plan: She received 1 g of IV valproate yesterday and has begun 500 mg twice daily. Please obtain trough level of valproate, both free and total, this afternoon a couple of hours before her next scheduled dose. The total level will result first, and if it's within the therapeutic range, stop zonisamide and decrease lacosamide to 25mg BID for 2 doses and then stop it. If first valproate level is lower than therapeutic range, increase dose to 750mg BID, maintain current lacosamide and zonisamide and check another total valproate level only after 3 doses of 750mg BID. If it's then in the therapeutic range stop zonisamide and decrease lacosamide to 25mg BID for 2 does then stop. Brayan Polk MD 03/09/2022 9:23 * Rosemary Asencio, PT - 03/08/2022 7273 EDT [facility] Physical Therapy Initial Evaluation Note Date of Service: 03/08/2022 Diagnosis: Generalized weakness and mobility status change secondary to UTI Date of Onset: 02/12/22 Referring Provider: Yung Henderson MD Reason for Referral: Evaluate and treat Precautions: Mobility Precautions Activity: Fall risk/precautions, Activity as tolerated SUBJECTIVE: Patient is currently having difficulty with: Bed mobility, bathing, dressing, toileting Patient/caregiver states: Pt is assisted by caregiver, Ever, at bedside for communication. Ever states that pt has been steadliy declining in mobility in strength for the past three weeks. Prior to this episode, pt was independent with dressing, bathing, mobility without an AD, and light food preparation. Recently pt requires full assistance with everything. Currently pt is having some arm pain as well as arm and leg twitching which they attribute to anxiety. Patient and Caregiver Goals: Patient unable to express goals Patient and Caregiver Goals: Increase strength and functional mobility in order to be able to go torehab and eventually return home Subjective Information Reported by: Patient, Friend(s) Medical/Surgical History: Current: Patient Active Problem List Diagnosis ??? Back pain ??? Chronic low back pain ??? Encounter for insertion or removal of intrauterine contraceptive device ??? Nicotine dependence, unspecified, uncomplicated ??? Perimenopausal ??? Tobacco abuse ??? Left-sided nontraumatic intracerebral hemorrhage (HCC) ??? Primary hypercoagulable state (HCC-CMS) (HCC) ??? Focal epilepsy (HCC-CMS) (HCC) ??? UTI (urinary tract infection) ??? Altered mental status, unspecified altered mental status type ??? Urinary tract infection associated with indwelling urethral catheter, initial encounter (HCC-CMS) (HCC) Past: Past Medical History: Diagnosis Date ??? 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 Exercise involving walking flat surfaces ??? History of cranial surgery 07/12/2020 ??? History of general anesthesia ??? Left-sided nontraumatic intracerebral hemorrhage (HCC) 03/02/2020 Status post decompressive hemicraniectomy ??? Memory disorder ??? Shoulder joint pain right History reviewed. No pertinent surgical history. HPI: Support Support Person: Friend(s), Family Prior level of function: Prior to admission, per caregiver report, pt was independent with mobility without an AD, ADLs, andlight iADLs such as simple cooking. However her level of function had been declining significantly over the course of the past 3 weeks due to progressive weakness. Home Environment: Safety Assessment / Living Environment Home environment: House Home layout: One level Entrance Stairs: No entrance stairs Bathroom Accessibility: Accessible Bedrooms/Bathrooms: Able to live on main level with bedroom/bathroom Indoor Stairs: No indoor stairs Mobility Equipment: Cane, Walker Support Person: Friend(s), Family Lives With: Friend(s), Family OBJECTIVE: Patient Profile: Patient is a 52 y.o. female admitted on 03/07/2022 secondary to Altered mental status, unspecified altered mental status type The patient [address] [place] [id number] Arousal, Attention, and Cognition: Orientation: Alert Cardiopulmonary: Patient vital signs stable per flowsheets and patient not symptomatic during examination Integumentary/Anthropometric: Palpation/Observation: Limited evaluation due to limited mobility Posture: Forward head, Protracted shoulders, Thoracic kyphosis, poor postural control Range of Motion: Active Range of Motion: Not evaluated secondary to limited activity tolerance Muscle Performance: Strength: Formal resistive muscle testing was not performed due to limited activity tolerance Sensation, Reflexes, and Nerve Integrity: Light Touch Sensation: Upper Quarter:Not evaluated secondary to patient unable to participate in formal sensory testing but light touch sensation appears intact Lower Quarter: Not evaluated secondary to patient unable to participate in formal sensory testing but light touch sensation appears intact Neuromotor Function/Development: Not evaluated due to evaluation limited to bedside examination. See assessment. Balance: Sitting Balance Static: Pt unable to independently maintain postural control in sitting Bed Mobility and Transfers: rolling: Min A supine to sit: Mod A x2 sit to supine: Mod A x2 Gait and Stairs: Not evaluated due to evaluation limited to bedside examination. See assessment. Informed Consent: The patient consented to the physical therapy evaluation. The patient agrees to and understands thephysical therapy treatment plan and goals. Interventions Completed Today: Time: 16:00 Total Treatment Time (minutes): 20 Timed Code Treatment Minutes: 20 Therapy Session: The patient's family was present for the physical therapy session Procedures: Therapeutic exercise Therapeutic Exercises Minutes: 20 Therapeutic Exercise 1: Pt performed supine to sit with HOB elevated with ModA x2. Pt sat at EOB with Mod-Max A x1. Pt unable to consistently maintain postural control in sitting, however would engage back and core musculature briefly with VC. Pt reported dizziness in sitting and due to inability to consistently maintain upright posture, pt requested to lay back down. Pt transferred sit to supinewith Min A x1. Pt was left with friend/family at bedside and call button in hand. Additional information may be available in the medical record. Patient/Family Education: Recommendations: Discharge recommendations/planning Therapy Specific: Plan of care, Treatment plan/goals ASSESSMENT: Physical Therapy Diagnosis: The patient presents with a physical therapy diagnosis of: Impaired posture, Impaired mobility, Pain Physical Therapy Assessment: Pt is a 52 y/o female admitted with weakness, nausea, and vomiting on 03/07/22. PMH includes CVA, seizure, back pain, and tobacco use. Patient presents with decreased postural control in sitting and pain with lethargy and limited communication due to facial weakness. Patient demonstrating high fallsrisk at this time and decline from PLOF. Min-Mod A with bed mobility recommended at this time, progressing to weightbearing activity per pt tolerance. Patient to benefit from continued skilled PT intervention to progress mobility safety and independence as able. The patient's prior level of function was: independent Current status is: below prior level of function The patient's rehabilitation potential is: good Physical Therapy is medically necessary to: address these body structure/function impairments, activity limitations, and participation restrictions, establish and progress mobility/exercise and provide recommendations for staff and safe discharge planning The patient: remains medically complex. Once medically stable, I expect the patient will require rehabilitation as next level of care for multiple disciplines. Expect patient to tolerate an intensityof 3 hours of therapy at a minimum of 5 days per week. Short-Term Goals: Time Frame: 10 days : 03/18/22 Goal: Pt will perform supine to sit transfer independently Status: Initiated Goal: Pt will transfer sit to stand using RW independently Status: Initiated Goal: Pt will ambulate 10ft using RW independently Status: Initiated PLAN: Continue per established treatment plan Frequency: Times per week Times Per Week: 5 Intensity: 30-60 minutes Duration: Duration of hospitalization Interventions May Include: Self-care/home management, Therapeutic activities, Neuromuscular re-education, Therapeutic exercise, Gait training Next Session to Include: Bed mobility, pre gait training Discharge Recommendations: Recommended Discharge Destination: Subacute rehabilitation Therapy Specific Services: Physical therapy, Occupational therapy Team Communications: Notified: Nurse When: After therapy session, Prior to therapy session By: [id number] communication Notification Comments: Mobility recommendations. Fall risk. Pain report. Discharge recommendations. Rosemary Asencio DPT, PT 03/08/2022 18:25 * Caren Gorman - 03/08/2022 1449 EDT Patient is not medically ready to discharge. When she is medically stable she will need rehab. Patient asked for a flu shot and for covid booster while inpatient. CM notified MD regarding the request. SNF packet has been started. * Yung Henderson MD - 03/08/2022 1336 EDT [facility] Medicine service Progress Note Service Date: 03/08/2022 Admit Date: 03/07/2022 8:29 Reason for Admission: n/v/weakness 24 Hour Events: - MR lumbar spine was conducted to assess for possible cauda equina syndrome. No significant findings were noted on MR to suggest this diagnosis. - XR abdomen: significant for oral contrast present in bowel. Patient's last oral contrast study was completed on 01/30/2022 which suggests that the patient has had reduced gut motility >5 weeks. - Consult with Neurologist, Dr. Polk. - Global weakness could possibly be attributed to polypharmacy with regards to the patient's seizure medications. - PPN started per recent history of N/V, poor oral intake, constipation, and electrolyte abnormalities. Subjective Patient reports that she is feeling improved since yesterday but is still extremely weak and unableto move without assistance. She has had one bowel movement following an enema last night, but she still has not had any subsequent bowel movements. She vomited after eating a small amount of pudding this morning. Review of Systems Negative chest pain, shortness breath, headache Positive for nausea, vomiting, abdominal pain, constipation, weakness, dysarthria Objective VITALS: BP 121/82 Pulse 104 Temp 36.3 ??C (97.3 ??F) (Oral) Resp 16 Ht 170.2 cm (67) Wt 58.1 kg (128 lb) SpO2 97% BMI 20.05 kg/m?? I&O: Intake/Output Summary (Last 24 hours) at 03/08/2022 1336 Last data filed at 03/08/2022 1100 Gross per 24 hour Intake 240 ml Output 950 ml Net -710 ml PHYSICAL EXAM Gen: Chronically ill-appearing woman lying in bed HEENT: Dry mucous membranes, no scleral icterus Neck: supple, no JVD CV: Tachycardic, regular rhythm, no m/r/g Pulm: CTAB, good air movement, no w/r/r Abd: soft, NTND, no HSM, slight pain on deep palpation diffusely Extrem: warm and well perfused, no cyanosis or edema Psych: Somewhat slow mentation though alert and oriented x3. Answers questions appropriately : Reyes placed for urinary retention Neuro: Continues to be dysarthric, 3/5 lower extremity strength, 4/5 upper extremity strength Skin: Small periorbital papular rash is stable in size from yesterday. No bullae or mucosal involvement, and not currently concerning for SJS. LABS No results for input(s): GLUCOSEFINGE in the last 72 hours. Lab Results Component Value Date HGBA1C 5.4 02/14/2020 Recent Labs 03/07/22 0842 03/08/22 0658 WBC 4.50 3.12* RBC 3.94 2.93* HGB 13.1 9.8* HCT 38.6 28.8* MCV 98 98 PLT 160 126* Recent Labs 03/07/22 0842 03/07/22 1104 03/08/22 0658 03/08/22 1245 NA 137 -- 132* 134* K 4.1 -- 2.9* 2.7* CL 105 -- 106 111* CO2 22 -- 21* 20* BUN 18 -- 10 -- CREATININE 0.61 -- 0.44* -- CALCCA -- 9.3 9.2 -- MG 1.7 -- 1.5* -- PHOS -- -- 2.8 -- Recent Labs 03/07/22 0842 03/08/22 0658 ALKPHOS 107 80 AST 47* 23 ALT 23 16 TBIL 0.8 <0.2 No results for input(s): PROTIME, PTT, INR in the last 72 hours. No results for input(s): PHISTAT, PCOISTAT, POISTAT, [id number], BEART, POCFIO2 in the last 72 hours. Recent Labs 03/07/22 0842 CK 90 TROPONINI <0.034 Recent Labs 03/07/22 0944 LABSPEC <=1.005 PHUR 8.5* GLUCOSEU Negative BILIRUBINUR 2+* KETONES 1+* BLOODU 3+* MEDICATIONS SCHEDULED apixaban, 2.5 mg, oral, BID aspirin chewable, 81 mg, oral, DAILY buPROPion, 150 mg, oral, DAILY cefTRIAXone (ROCEPHIN) IVPB (1 g premade bag), 1,000 mg, intravenous, Q24H lacosamide, 50 mg, oral, BID lactulose, 30 mL, oral, DAILY magnesium sulfate, 2 g, intravenous, Now metoclopramide, 5 mg, intravenous, Q6H ramelteon, 8 mg, oral, QHS senna, 2 Tablet, oral, QHS thiamine, 100 mg, intravenous, DAILY zonisamide, 200 mg, oral, DAILY PRN dextrose 5%, 0-125 mL/hr, PRN lidocaine (PF), 2 mg, PRN ondansetron (PF), 4 mg, Q4H PRN polyethylene glycol 3350, 17 g, Daily PRN MICROBIOLOGY Urine sample from 03/07/2022 positive for gram negative bacilli. Identification/sensitivity to follow. Blood culture from 03/07/2022 pending. NEW IMAGING Result Date: 03/08/2022 MR Lumbar spine - No acute findings in the lumbar spine to explain clinically suspected cauda equina syndrome XR Abdomen - Oral contrast in the left colon Patient's last oral contrast study was completed on 01/30/2022 which suggests that the patient has had reduced gut motility >5 weeks. Assessment Ynes White is a 52 y.o. 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 ?? Admitted to the hospital medicine service with UTI, toxic/metabolic acute on chronic encephalopathy, generalized weakness, urinary/fecal retention, and profound decrease in functional status. Overall today, she is hemodynamically stable and tolerating treatment for her complicated UTI. [place] continue monitoring neuro symptoms, continue bowel regimen, and begin PPN and IV electrolyte replacement until able to tolerate PO nutrition. At this time there is not a unifying diagnosis though medication reaction/polypharmacy is of high suspicion. Less common etiologies for her profound weakness should also be considered given her profound weight loss in recent months and absolute GI immotility >1 month, including autoimmune or broader infectious etiologies, and neurogenic. She continues to be profoundly weak, and thus I will pursue more robust work-up today with ADVERTISING COORDINATOR imaging from head to thoracic spine on MR. Appreciate ongoing neuro support. Principal Problem: Altered mental status, unspecified altered mental status type Active Problems: UTI (urinary tract infection) Urinary tract infection associated with indwelling urethral catheter, initial encounter ([facility] ([facility]) Plan by problem #Global weakness, nausea/vomiting, malnutrition, fatigue/ severe colonic immobility /lack of rectaltone: -- PPN initiated -- Nutrition consulted -- XR abdomen as above -- Electrolyte abnormalities noted above -- FIRE OPERATIONS FORESTER eval appreciated -- Continue to hold lamotrigine and hold AUTOMOTIVE PARTS CLERK olanzapine -MR head, cervical spine, thoracic spine (lumbar spine already negative for explanatory disease) - Autoimmune initial work-up with HERRERA, ANCA, SSA/SSB - HIV and hep C serologies --ionized calcium - CK has been negative --TSH/T4 WNL - Appreciate neurology consultation, highly suspicious for medication reaction to AEDs -Recommending loading with Depakote tonight 1000mg x1 then 500mg BID -Plan for titration off of current AEDs starting tomorrow #Hx sinus venous thrombosis c/b hemorrhagic stroke and seizure disorder --hold AUTOMOTIVE PARTS CLERK apixaban pending LP consideration --cont AUTOMOTIVE PARTS CLERK vimpat --cont AUTOMOTIVE PARTS CLERK zonisamide --anticipate titrating these off after starting depakote --appreciate neuro consultation #Electrolyte abnormalities: -- Hypokalemia managed with PPN and IV potassium -- Hypomagnesemia managed with PPN and IV magnesium - Closely monitor electrolytes and for refeeding syndrome #Complicated UTI/Urinary retention -- Continue Reyes (placed in ED 03/03/2022) -- Cultures show gram neg bacilli -- Sensitivities pending -- Follow blood/urine cultures -- Continue ceftriaxone #Facial Rash (possible drug reaction to lamotrigine) -- Continue to monitor, stable from day of admission - Medication adjustments as above #Constipation -- Abdominal XR above -- Repeat enema today, continue daily -- MiraLax as tolerated --lactulose --bid senna #Other -- Patient requested a flu shot and COVID booster while inpatient. --ordered for flu shot and covid pfizer shot Miscellaneous FEN: DIET [facility] [facility]im[facility] PPN PPx: Apixaban AUTOMOTIVE PARTS CLERK Code: Full Code Discharge Plan: Pending clinical course Consults: Gastroenterology Adriana Anaya 03/08/2022 13:36 Attestation: I was present with the medical student for the history, exam, and medical decision making documented. I have personally performed my own physical exam and medical decision making. I haveverified and agree with (or, as indicated, have edited) the medical student's documentation. I spent more than 35 minutes in direct floor time solely dedicated to caring for this patient todayincluding >50% of time spent in counseling and coordination of care. Time spent in review of themedical chart, review of labs, review of imaging, discussion with consultants, discharge planning, disease counseling and treatment planning with the patient and patient's family . Yung Henderson MD 03/08/2022 18:30 * Etsela Ho, FIRE OPERATIONS FORESTER - 03/08/2022 1046 EDT [facility] Speech-Language Pathology Clinical Swallow Evaluation FIRE OPERATIONS FORESTER Diagnosis: Dysphagia, oral phase: Medical Diagnosis: Altered mental status, UTI Date of Onset: 03/07/22 Date of Referral: 03/07/22 Referring Provider: Yung Henderson MD Start Time: 829 Total Therapy minutes: 30 min SUBJECTIVE: Pt known to this signer from outpatient speech therapy. OBJECTIVE: History: Per Dr. Polk's note: Ynes White is a 52 y.o. 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 We have been trying to adjust her seizure medicines because of side effects and breakthrough seizures. Most recently when I saw her in clinic February 16 we added lamotrigine, very slow titration initiated. She was concurrently taking zonisamide 200mg/d (higher doses caused anorexia), and lacosamide 50mg twice a day. The next week her friend Ever called and said that she had been vomiting and went to the ED and was given antinausea medicine. Shortly afterwards we stopped her lamotrigine in case itwas a reaction to that medicine. She continued to worsen and had several other ED visits for nauseaand vomiting. Today when she presented she was admitted. Urinalysis showed a significant infection and she has been started on antibiotics. The admitting team was concerned about symptoms potentially suggestive of cauda equina syndrome so an MRI of the lumbar spine was done but was without any concern for that condition. Abdominal x-ray also not showing acute findings. She has described a mild rash but hasn't had any mucosal involvement. She has been afebrile. Ynes herself is having trouble describing her current symptoms, but was brought to the ED by her attentive friend Ever, and her sister as well. She has been off lamotrigine for more than a week, and achieved only 1 tablet twice a day. It has been hard for her to hold food or drink down lately, but she does think she has been able to take her medications relatively consistently. PMH: Past Medical History: Diagnosis Date ??? 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 Exercise involving walking flat surfaces ??? History of cranial surgery 07/12/2020 ??? History of general anesthesia ??? Left-sided nontraumatic intracerebral hemorrhage (HCC) 03/02/2020 Status post decompressive hemicraniectomy ??? Memory disorder ??? Shoulder joint pain right Current Diet: Dysphagia diet: pureed solids, thin liquids Diet prior to admission: regular diet with thin liquids (very poor PO intake over the last few weeks/months) Current Medications: Current Facility-Administered Medications Medication Dose Route Frequency Provider Last Rate Last Admin ??? apixaban (ELIQUIS) tablet 2.5 mg 2.5 mg oral BID Yung Henderson MD 2.5 mg at 03/08/22 0938 ??? aspirin chewable tablet 81 mg 81 mg oral DAILY Yung Henderson MD 81 mg at 03/08/22 0940 ??? buPROPion (WELLBUTRIN SR) SR tablet 150 mg 150 mg oral DAILY Yung Henderson MD 150 mg at 03/08/22 0939 ??? cefTRIAXone (ROCEPHIN) 1,000 mg in sodium chloride (NS MBP) 50 mL IVPB 1,000 mg intravenous Q24H Yung Henderson MD ??? lacosamide (VIMPAT) oral solution 50 mg 50 mg oral BID Yung Henderson MD 50 mg at 03/08/2237 ??? lactulose (CHRONULAC) 20 gram/30 mL solution 30 mL 30 mL oral DAILY Yung Henderson MD 30 mL at 03/08/2237 ??? lidocaine (PF) 10 mg/mL (1 %) injection 2 mg 2 mg intradermal PRN Yung Henderson MD ??? magnesium sulfate 2 g in water 50 mL 2 g intravenous Now Yung Henderson MD ??? metoclopramide (REGLAN) injection 5 mg 5 mg intravenous Q6H Yung Henderson MD 5 mg at 03/08/22 0934 ??? ondansetron (PF) (ZOFRAN) injection 4 mg 4 mg intravenous Q4H PRN Jonatan Watkins MD 4 mg at 03/07/222300 ??? polyethylene glycol 3350 (MIRALAX) packet 17 g 17 g oral Daily PRN Yung Henderson MD ??? potassium chloride in water infusion 20 mEq 20 mEq intravenous Q2H Yung Henderson MD 20 mEq at 03/08/22 0930 ??? ramelteon (ROZEREM) tablet 8 mg 8 mg oral QHS Yung Henderson MD 8 mg at 03/07/222025 ??? senna (SENOKOT) tablet 2 Tablet 2 Tablet oral QHS Yung Henderson MD 2 Tablet at 03/07/222025 ??? zonisamide (ZONEGRAN) capsule 200 mg 200 mg oral DAILY Yung Henderson MD Current Status: Cognitive Status: Patient was alert and cooperative during evaluation. Pt has expressive/receptive aphasia at baseline d/t CVA in 2019. Language abilities grossly unchanged. She benefits from reading information as it is being read to her to support understanding. Respiratory Status: Respiratory status was judged to be WFL to support oral feeding. Clinical Swallow Evaluation: Patient/Family: consented to completing the clinical bedside swallow exam. Oral Peripheral Motor Exam: Face: Face was symmetrical with adequate strength and range of motion. Lips: Adequate labial strength and range of motion. Tongue: Tongue deviates to the left side. Reduced strength and ROM bilaterally, though more reducedon the Right. Velum: Symmetrical soft palate elevation during phonation attempts. Dentition: Adequate dentition. Laryngeal Excursion: Within functional limits with anterior tipping upon palpation. Speech Intelligibility: Speech intelligibility affected by expressive aphasia Vocal Quality: Patient presents with a clear vocal quality. Cough: Patient presents with a strong, non-productive cough. Positioning: Seen at bedside for evaluation. Consistencies Tested: was assessed with thin liquids, puree foods and solid foods. Methods of Delivery: Patient was able to self administer all items with FIRE OPERATIONS FORESTER assistance using a spoon, cup and straw. Pt presents with weak upper extremities. Findings: Oral Phase Findings: Patient presents with oral phase deficits characterized by reduced lip closure, prolonged mastication, poor bolus formation . Pharyngeal Phase: Patient presents with pharyngeal phase deficits as suggested by delayed swallow response. No s/s aspiration noted. Compensatory Strategies: The following compensatory swallow strategies were attempted during today's evaluation: Small bites/sips Interventions: Evaluation only today. Patient/Family Education/Training: Topic: Patient/Family education and training was completed today including the role of Speech-Language Pathology, results of today's exam/recommendations and diet modifications. Learner: patient, family and caregiver Method of Education: Verbal, Written and Demonstration Barriers to Learning/Education: receptive/expressive aphasia Patient: was able to return demonstration and needs further instruction and education Family: was able to verbalize understanding of information Assessment /Clinical Impressions: is a 52 y.o. female admitted with UTI, altered mental status, weakness. A clinical swallow evaluation was completed today by Speech Language Pathology secondary to concerns for oropharyngeal dysphagia, and risk of laryngeal penetration/aspiration. currently presents with a mild oropharyngeal phase dysphagia characterized by reduced lingual strength, prolonged mastication, and reduced bolus formation with solid consistencues, and slightly delayed swallow trigger with liquid consistencies. No s/s of aspiration were observed today, though pt is considered to be at increased risk of aspiration due to oral phase deficits and pharyngeal delay. Etiology of dysphagia is likely related to overall weakness. Additionally, the pt has very poor PO intake due to ongoing taste changes (likely due to medication) and poor peristalsis, making PO intake unappealing. Per MD, pt [facility]benefit from [facility] nutrition to support healing while in this facility. remains at mild risk of aspiration/airway compromise including obstruction, congestion and infective sequelae of aspiration. Actual risk of acquiring aspiration pneumonia if endotracheal aspiration occurs is considered Mild based on the presence of the following factors which research indicates predisposes an individual to aspiration pneumonia: need to take a large number of medications, reduced level of physical activity and neurological disease. Compensatory strategies of taking small bites/sips and softening solids appear effective in decreasing risk of aspiration. Prognosis for improvement in swallow function is judged to be good at this time secondary to only mild impairment observed. Anticipate patient discharge to inpatient rehab once medica (now answer teams referral question with time frame and what you think will happen to the patient). [facility] FCM Swallowin% The National Outcomes Measurement System (NOMS) is a national data collection and reporting registry that benchmarks the outcomes of individuals receiving speech-language pathology services across the health care continuum. The wells to the [facility] [employer] Registry is the use of [facility]'s Functional Communication Measures (FCMs) and optional patient-reported outcomes (PROs). The difference in the calculated FCM scores from initiation of treatment to the end of treatment depicts the amount of change in communication and/or swallowing abilities after speech and language intervention. Note that higher scores reflect better ability or self-assessed performance. GOALS: -Patient will demonstrate optimum safety and efficiency of swallowing function for highest diet/liquid consistencies as indicated by skilled intervention or radiographically. (by date:03/15/22) -Tolerate thin liquids without evidence of coughing, choking, throat clearing, wet voice, etc...in : 95%( 19/ 20) of observed swallows using compensatory swallow strategies with min cues. (by date: 03/13/22) -Tolerate regular consistency diet without overt s/s of dysphagia in 95 % ( 19 / 20) of observed swallows using strategies with min cues. (by date 03/13/22) -Verbalize compensatory swallow strategies with min cues 90% accuracy. (by date 03/13/22) Plan /Recommendations: Treatment recommendations: Good oral care (brush teeth, tongue, gums) Diet/liquids change to: soft/bite sized, thin liquid Swallow strategies: Slow rate, Extra moisture and small bites. Patient will continue to benefit for further [employer] intervention in this setting to address dysphagia management and intervention needs. Referrals: Gastroenterology and Nutrition [employer] follow-up: [employer] to follow-up minimum of 3 x per week until discharged. Discharge Plan: Recommend inpatient rehab. ERIKA NORMAN 03/08/2022 10:47 * Caren Gorman - 03/08/2022 1019 EDT Patient needs to be assessed by PT, OT and [employer]. Patient will likely need rehab upon discharge. SNF packet has been started. documented in this encounter H&P Notes * Yung Henderson MD - 03/07/2022 1615 EDT [facility] Hospital Medicine Admission History & Physical Service Date: 03/07/2022 Admit Date: 03/07/2022 8:29 Primary Care Provider: Romario Hairston Chief Complaint: weakness HPI Ynes White is a 52 y.o. female with a history of left cerebral venous thrombus complicated byleft hemispheric intracerebral hemorrhage and resultant symptomatic focal onset seizures with secondary generalization, chronic back pain, tobacco use, hypercoagulable state on apixaban who [facility] with progressive weakness, altered mental status, nausea/vomiting with poor PO intake. Ms. White has had a complicated recent medical course. She was seen by Dr. Polk of neurologyon February 16 at which time she was started on lamotrigine in an effort to find a good balance of herantiepileptics. In the past 2 weeks she has had progressive weakness and nausea and vomiting resulting in multiple ED visits. Lamotrigine was discontinued on 03/01, however she has had progressive weakness since then and continued nausea/vomiting. She has not been able to keep anything down over the last week. She typically is able to walk, shower, and feed herself without assistance. She has most recently at her baseline status of health 2 weeks ago. She was most recently seen in the ED on 03/03, again for nausea and vomiting as well as left- sided perioral paresthesias, as well as urinary retention. She had some decrease sensation in the V3 distribution. CT head at that ED visit was normal. Her friend Ever is at bedside, states that she is profoundly weaker than usual. She has not had a bowel movement in over 10 days. Additionally she had notable urinary retention at her most recent ED visit at which time Reyes catheter was placed with a plan for follow-up with urology next week. Givenher ongoing nausea and vomiting, she has had poor intake and poor urine output. No fevers have been measured at home, her emesis is nonbloody. She denies significant abdominal pain, simply feels persistently nauseous. She confirms that she is taking her medications at home, last taken this morning.She has been holding the lamotrigine as recommended by Dr. Polk. Per Ever's telling, she has nothad recurrent symptoms consistent with her prior seizures. Her primary issues have been weakness, and/V. She endorses asymmetric numbness in the left lower extremity, ongoing perioral sensations/paresthesias around the left cheek and some numbness in the V3 distribution on the left. She is able to lift her arms against gravity, however has been a bit too weak to feed herself easily. In the ED, vitals were notable for T 36 9, she was hypertensive to the 150 systolic, HR 104, breathing comfortably on room air with good saturations. Lab work was notable for normal electrolytes and renal function, mild hypocalcemia that was corrected to 9.3, slightly elevated AST and otherwise normal LFTs. Troponin was negative, CK was negative, and her CBC was unremarkable. Covid, flu, RSV PCR is negative. Her UA was notable for positive nitrites, 3+ leuk esterase, many bacteria and 11-50 WBCs. EKG showed sinus tachycardia with slightly long QTC. Procalcitonin was negative. Review of Systems A complete 10 point ROS was performed and pertinent positive and negative findings listed in HPI, otherwise negative. Past Medical History: Diagnosis Date ??? Aphasia ??? Cerebral artery occlusion with cerebral infarction (HCC-CMS) (HCC) ??? 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 Exercise involving walking flat surfaces ??? History of cranial surgery 07/12/2020 ??? History of general anesthesia ??? Left-sided nontraumatic intracerebral hemorrhage (HCC) 03/02/2020 Status post decompressive hemicraniectomy ??? Memory disorder ??? Seizures (HCC-CMS) (HCC) ??? Shoulder joint pain right Surgery: Hx surgery of cranium in 2019 Social History Tobacco Use ??? Smoking status: Current Every Day Smoker Packs/day: 0.25 Years: 15.00 Pack years: 3.75 ??? Smokeless tobacco: Never Used Substance Use Topics ??? Alcohol use: Yes Family History Problem Relation Age of Onset ??? Cancer Mother 72 Liver ??? Cancer Father 79 mesothelioma ??? Cancer Maternal Grandmother 80 Medications Prior to Admission Medication Sig ??? acetaminophen (TYLENOL) 500 mg tablet Take 2 Tabs by mouth every 6 hours. (Patient not taking: Reported on 03/07/2022) ??? aspirin chewable 81 mg tablet Take 81 mg by mouth daily. ??? buPROPion (WELLBUTRIN SR) 150 mg SR tablet TK 1 T PO QD IN THE MORNING ??? cholecalciferol, Vitamin D3, 25 mcg (1,000 unit) tablet Take 1,000 Units by mouth daily. Reported by caregiver ??? diclofenac sodium 1 % gel APPLY 2 GRAMS TO THE AFFECTED JOINT BID (Patient not taking: Reportedon 02/16/2022) ??? docusate sodium (COLACE) 100 mg capsule Take 1 Cap by mouth 2 times daily. (Patient not taking:Reported on 02/16/2022) ??? ELIQUIS 2.5 mg tablet TAKE 1 TABLET BY MOUTH TWICE DAILY ??? GENTEAL TEARS MODERATE 0.1-0.3-0.2 % drops INSTILL 1 DROP IN BOTH EYES FOUR TIMES DAILY ??? ketotifen (ZADITOR) 0.025 % (0.035 %) ophthalmic solution Not filling ??? lacosamide (VIMPAT) 50 mg tablet Take 1 Tablet by mouth 2 times daily. Daily Max: 100 mg ??? lactulose (CHRONULAC) 10 gram/15 mL solution TAKE 15 ML BY MOUTH EVERY DAY NEEDED ??? [START ON 03/16/2022] lamoTRIgine (LAMICTAL) 100 mg tablet Take 1 Tablet by mouth 2 times daily.(Patient not taking: Reported on 03/07/2022) ??? lamoTRIgine (LAMICTAL) 25 mg tablet Weeks 1-2: take 1 25mg tablet twice a day. Weeks 3-4 take 225mg tablets twice a day. New prescription 100mg tabs, take 1 tab twice a day from week 5 and on. (Patient not taking: Reported on 03/07/2022) ??? magnesium oxide 240 mg magnesium powder in packet Take 1 Packet by mouth 2 times daily. (Patient not taking: Reported on 03/07/2022) ??? melatonin 5 mg tablet Take 5 mg by mouth at bedtime. ??? OLANZapine (ZYPREXA) 10 mg tablet TAKE 1 TABLET BY MOUTH EVERY DAY AT BEDTIME. TAKE WITH 5MG TABLET FOR TOTAL AT BEDTIME DOSE OF 15MG. (Patient not taking: Reported on 03/07/2022) ??? OLANZapine (ZYPREXA) 20 mg tablet Take 20 mg by mouth at bedtime. Filled on 02/01/22, confirmedwith pharmacy; take 1 tablet at hs' ??? OLANZapine (ZYPREXA) 5 mg tablet Take 5 mg by mouth daily. Filled on 01/08/22 #90 tablets, per caregiver pt may take an extra' dose if needed ??? omeprazole (PRILOSEC) 20 mg capsule TAKE [...] capsule Take 200 mg by mouth daily. Allergies Allergen Reactions ??? Citalopram Other reaction(s): increased anxiety ??? Duloxetine Other reaction(s): increased anxiety ??? Gabapentin ??? Levetiracetam Anxiety ??? Pregabalin Other reaction(s): dizziness ??? Trazodone ??? Zolpidem Other reaction(s): sleep walking with over 5 mg Objective VITALS: BP (!) 151/97 Pulse 104 Temp 36.4 ??C (97.6 ??F) (Oral) Resp 16 Ht 170.2 cm (67) Wt 58.1kg (128 lb) SpO2 99% BMI 20.05 kg/m?? PHYSICAL EXAM Gen: Chronically ill-appearing woman lying in bed HEENT: Dry mucous membranes, no icterus Neck: Supple CV: Slightly tachycardic and regular, no murmurs rubs or gallops heard Pulm: Breathing comfortably on room air, clear to auscultation bilaterally Abd: Very slightly tender to deep palpation, negative Li's, no pain in the suprapubic region with the palpation. No peritoneal signs. Soft abdomen. : Reyes in place draining dark-colored urine Extrem: Warm and well perfused, no cyanosis or edema Neuro: Mildly dysarthric, symmetric smile, negative pronator drift, pupils equal and reactive to light, 4/5 upper extremity strength with shoulder flexion, elbow flexion. 3/5 strength in the lower extremities bilaterally with hip flexion and knee extension bilaterally. 5/5 dorsiflexion and plantarflexion bilaterally. Negative Babinski, negative clonus, she is areflexic in the patellar tendons. She has no rectal tone. Sensation intact in the saddle region. Skin: Skin on the face shows mild papular rash extending towards the left, without bullae. Mucous membranes show no sloughing or ulcerations. She has no other skin lesions or bullae concerning for SJS. Psych: Somewhat slow mentation though alert and oriented x3. Answers questions appropriately Sacrum: Not examined LABS I have personally reviewed the following: No results for input(s): GLUCOSEFINGE in the last 72 hours. Lab Results Component Value Date HGBA1C 5.4 02/14/2020 Recent Labs 03/07/22 0842 WBC 4.50 RBC 3.94 HGB 13.1 HCT 38.6 MCV 98 PLT 160 Recent Labs 03/07/22 0842 03/07/22 1104 NA 137 -- K 4.1 -- CL 105 -- CO2 22 -- BUN 18 -- CREATININE 0.61 -- CALCCA -- 9.3 MG 1.7 -- Recent Labs 03/07/22 0842 ALKPHOS 107 AST 47* ALT 23 TBIL 0.8 No results for input(s): PROTIME, PTT, INR in the last 72 hours. No results for input(s): PHISTAT, PCOISTAT, POISTAT, M3THNEJY, BEART, POCFIO2 in the last 72 hours. Recent Labs 03/07/22 0842 CK 90 TROPONINI <0.034 Recent Labs 03/07/22 0944 LABSPEC <=1.005 PHUR 8.5* GLUCOSEU Negative BILIRUBINUR 2+* KETONES 1+* BLOODU 3+* MICROBIOLOGY I have personally reviewed the followin/13 influenza, RSV, COVID-19 PCR negative 03/07 bacterial culture urine pending 03/07 blood cultures x2 pending NEW IMAGING I have personally reviewed the following: CT HEAD WO CONTRAST Result Date: 03/03/[address] evidence for acute intracranial abnormality or significant change since 09/18/21. THIS DOCUMENT HAS BEEN ELECTRONICALLY SIGNED BY JAGDEEP HUMPHRIES MD FOR ANY QUESTIONS OR CONCERNS REGARDING THIS REPORT PLEASE CALL [facility] AT [phone] EKG Reviewed by me, showing sinus tachycardia with no signs of acute ischemia, mildly long QTC at 481. Assessment Ynes White is a 52 y.o. female with a history of left cerebral venous thrombus complicated byleft hemispheric intracerebral hemorrhage and resultant symptomatic focal onset seizures with secondary generalization, chronic back pain, tobacco use, hypercoagulable state on apixaban who [facility] [place] [facility] with progressive weakness, altered mental status, nausea/vomiting with poor PO intake. Admitted to the hospital medicine service with lower extremity weakness, intractable nausea/vomiting, complicated urinary tract infection, acute mild metabolic encephalopathy in the setting of infection, constipation. Currently her clinical picture is complicated, most worrisome is her lower extremity weakness, absence of rectal tone, asymmetric sensory loss in the lower extremities, and areflexia. She additionally has significant urinary and fecal retention. Given these red flags, I will obtain lumbar MR to rule out cauda equina syndrome though given her neuro history, more proximal central causes should be considered as well. Alternative explanations for global weakness include simply her complicated UTI, and given the facial rash possibly reaction to lamotrigine which was started on 02/16, however this has been held sinceApril 7 and she continues to weaken from a fairly functional baseline status. She has no significant mucosal involvement to suggest SJS at this time. 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 I'm also concerned for ileus given her significant constipation which may have contributed to urinary retention. There is possibility for recurrent seizure to explain her facial sensations/perioral paresthesias. She is currently hemodynamically stable, plan for now will be to treat for complicated UTI, treat constipation, monitor neuro status, and consider further imaging of the abdomen pending results of the MR. Principal Problem: Altered mental status, unspecified altered mental status type Active Problems: UTI (urinary tract infection) Urinary tract infection associated with indwelling urethral catheter, initial encounter ([facility] ([facility]) Plan by problem #Lower extremity weakness, lack of rectal tone, urinary/fecal retention: -Stat MRI lumbar spine to rule out cauda equina syndrome -Consider more proximal neuro causes if MR is negative -Possibly component of polypharmacy #Global weakness, nausea/vomiting of 2 weeks duration/significant fatigue: Her symptoms began with initiation of lamotrigine, however this has been off for approximately 1 week and her symptoms have continued. -Reglan for nausea -Pending MRI results above will order enema -XR of the abdomen -Trend LFTs given slightly large CBD on January CT abdomen pelvis, currently she is without Li sign and LFTs near normal -Consider CT abdomen/pelvis if her nausea/vomiting continues without clear etiology -Hold lamotrigine -Hold AUTOMOTIVE PARTS CLERK olanzapine (confirmed that she has been on a dose of approximately 30 mg total olanzapinedaily, for the past 2 months) -Nutrition consult -[employer] consult given some slight dysarthria, will start with dysphagia diet and bedside eval #Complicated urinary tract infection/urinary retention/poor p.o. intake/ketonuria -Continue Reyes, which was placed at last ED visit -Follow urine cultures -Ceftriaxone daily -Follow blood cultures -Consider renal ultrasound -Status post 1 L fluid bolus in the ED -Continue IVF, initially with LR, however will switch to D5 plus half normal saline given ketonuria #Perioral paresthesias/facial rash -Calculated calcium is normal -Possibly component of her known focal seizures, appreciate neurologic input -Follow rash for mucosal involvement and/or other concerning features for SJS given recent lamotrigine #Constipation -Abdominal XR as above -Enema -MiraLAX as tolerated #History of sinus venous thrombosis complicated by hemorrhagic stroke and subsequent seizure disorder -Appreciate neurologic input -Continue AUTOMOTIVE PARTS CLERK zonisamide -Continue AUT[employer]IVE [employer]S CLERK lacosamide -Hold AUTOMOTIVE PARTS CLERK lamotrigine -Continue AUTOMOTIVE PARTS CLERK apixaban 2.5 mg twice daily Miscellaneous FEN: DIET NPO TIME SPECIFIED - pending new client banking services clerk eval PPx: apixaban AUTOMOTIVE PARTS CLERK Code: Full Code Discharge Plan: Pending clinical course Consults: Neurology Admission Status Inpatient. Anticipated duration of hospitalization is greater than two midnights due to weakness, n/v, metabolic encaphalopathy. 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 Medications: Lacosamide, pregabalin, lorazepam Technical Description: Standard EEG: An in-laboratory digital EEG is performed utilizing silver-silver chloride electrodesplaced according to the International 10-20 system of electrode placement. CPZ serves as the recording reference electrode. The following additional electrodes are also placed: ECG electrodes , anterior temporal electrodes The study begins at 1637 until 1702 with a total study duration of 25 minutes. During this study the following states were recorded: wake, drowsy Subject factors: Encephalopathic, not interactive Previous EEG Study? Yes Findings: The background cerebral activity with the patient encephalopathic and poorly attentive is continuous. No clear PDR is present. The normal anterior/posterior gradient is attenuated. There is intermittent right hemispheric slowing predominantly represented by moderate amplitude polymorphic delta activity. There is also continuous severe left hemispheric slowing predominated by 7-8 Hz activity, withfrequent overriding polymorphic delta waves. Hyperventilation is not performed due to patient factors. Photic stimulation with 10 second trains of stimulation by 10 second intervals without stimulation is performed at flash frequencies at intervals between 1 to 21 Hz. No abnormal responses are recorded. No sleep state changes are noted. Single lead EKG reveals a regular rhythm with some PVCs. Impression: Abnormal EEG due to moderate diffuse and additional severe left hemispheric focal slowing. Clinical Correlation: The above findings are consistent with a diffuse encephalopathy on top of known prior left hemispheric stroke. No seizures or interictal discharges are present. The patient is not in subclinical status epilepticus. Brayan Polk MD documented in this encounter Consult Notes * Tamia Turk - 03/21/2022 1520 EDT Spiritual Care Department Arborist Climber Consult Note Re: Ynes White : 1970 Room: [address] [place] [address] Service: [facility] Holiness: Pentecostalism Ynes has received a visit from the Spiritual Care Department on 03/21/2022. Assessment/Comments: Ynes greeted me with a smile and reported feeling great because so many people have reached out to her and sent their love. She could not explain why she is in the hospital, but seemed in no distress. A sister has been to see her. She was grateful for the visit. DEMOGRAPHICS Spiritual Care Welcomed End of Life Patient Is Unable to Assess Importance Unable to Assess Current Support System Family/Friends Level of Support Strong Support ENCOUNTER DATA Date of Encounter 03/21/22 Time of Encounter Reason for Encounter Referral Referred by Staff Care Level 3 - Some Matter of Substance Reason not visited ENCOUNTER Needs Addressed See Assessment/Comments Interventions See Assessment/Comments Sacraments Provided Date of Anointing Communion Date of Communion Date of Protestant OUTCOME Outcome Stress Level Reduced Stress Outcome of Encounter Patient Satisfied CARE PLAN Plan No Support Needed Consult With Additional Support Was Clergy Needed? No, TIME STAMP: Total time spent 10 minutes in direct floor time; >50% of time was spent in spiritual care. Tamia Turk 03/21/2022 15:20 * Shaylee Salazar, STIVEN - 03/09/2022 1047 EDTAssociated Order(s): CONSULT NUTRITION Brief Nutrition Note PPN Rx: 680 kcal + 250 ml 20% IV lipid Labs: Hgb/Hct:9.4/27.7 (03/09 656) Na/K/Cl/CO2/Gluc/M/3.8/110/21/102/1.8 (03/09 656) Blood Glucose (Lab Resulted): 131 (03/09 610) BUN/Cr/Phos/AlkPhos/Ca/CalcCa/TG/CRP:7/0.42/3.1/73/7.6/9.2/87/8.5 (03/08 658- 03/09 656) Pt with minimal PO intake, persistent weakness. Neurology following, med changes noted. Appears to be tolerating PPN well, lytes, Mg, phos wnl today. Continue IV thiamine. Continue PPN asordered, providing ~78% est kcal and >100% est protein needs. PPN will likely not meet needs; ifpt will need PN x >3 days consider PICC placement. Plan: Continue diet Continue PPN, IV Lipid, thiamine Monitor intake, wgt, labs, skin, bowels, comfort RD following Shaylee Salazar MS, RD, CD * Shaylee Salazar RD - 03/08/2022 1136 EDTAssociated Order(s): CONSULT NUTRITION Dietitian Inpatient Assessment S: Per RN, pt with aphasia, having difficulty communicating. Did not do well with lunch, sent smalldinner. Poor PO qualitative researcher. Plan for PPN. O: Pt is 52 y.o. female admitted with weakness, AMS, n/v x 2 wks, found to have complicated UTI, possible ileus, concern for cauda equina syndrome vs recurrent seizure. Past Medical History: Diagnosis Date ??? 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 Exercise involving walking flat surfaces ??? History of cranial surgery 07/12/2020 ??? History of general anesthesia ??? Left-sided nontraumatic intracerebral hemorrhage (HCC) 03/02/2020 Status post decompressive hemicraniectomy ??? Memory disorder ??? Shoulder joint pain right Height: 170.2 cm (67) Weight : 58.1 kg (128 lb) Body mass index is 20.05 kg/m??. Recent weight changes: Weights Filed This Admission 03/07/22 0915 03/07/22 1244 Weight: 58.1 kg (128 lb) 58.1 kg (128 lb) Wt Readings from Last 10 Encounters: 03/07/22 58.1 kg (128 lb) 02/22/22 59 kg (130 lb) 02/02/22 57.5 kg (126 lb 12.2 oz) 01/16/21 72.6 kg (160 lb) 09/14/20 79.8 kg (176 lb) 07/27/20 79.8 kg (176 lb) 07/16/20 80 kg (176 lb 4.8 oz) 07/12/20 77.2 kg (170 lb 3.1 oz) 07/06/20 78.5 kg (173 lb) 05/30/20 78.5 kg (173 lb) . Significant Laboratory Data: Lab Results Component Value Date/Time WBC 3.12 (L) 03/08/2022 06:58 HGB 9.8 (L) 03/08/2022 06:58 HCT 28.8 (L) 03/08/2022 06:58 MCV 98 03/08/2022 06:58 NA 132 (L) 03/08/2022 06:58 K 2.9 (LL) 03/08/2022 06:58 CO2 21 (L) 03/08/2022 06:58 CL 106 03/08/2022 06:58 BUN 10 03/08/2022 06:58 CREATININE 0.44 (L) 03/08/2022 06:58 SERGLU 111 (H) 03/08/2022 06:58 CALCIUM 7.5 (L) 03/08/2022 06:58 CALCIUM 7.5 (L) 03/08/2022 06:58 PHOS 2.8 03/08/2022 06:58 MG 1.5 (L) 03/08/2022 06:58 Lab Results Component Value Date/Time HGBA1C 5.4 02/14/2020 17:48 GLUCOSEPOC 103 (H) 03/09/2020 20:16 GLUCOSEPOC 114 (H) 03/09/2020 17:10 GLUCOSEPOC 111 (H) 03/09/2020 11:32 GLUCOSEPOC 106 (H) 03/09/2020 06:43 GLUCOSEPOC 126 (H) 03/08/2020 12:00 Lab Results Component Value Date/Time VITD 32 03/08/2022 06:58 No results found for: IRON, TIBC, FERRITIN Skin status and other: No open areas noted Last BM 03/07 (no BM x 10 d qualitative researcher per H&P) Nutritionally significant medications: Scheduled apixaban, 2.5 mg, BID aspirin chewable, 81 mg, DAILY buPROPion, 150 mg, DAILY cefTRIAXone (ROCEPHIN) IVPB (1 g premade bag), 1,000 mg, Q24H lacosamide, 50 mg, BID lactulose, 30 mL, DAILY magnesium sulfate, 2 g, Now metoclopramide, 5 mg, Q6H potassium chloride in water, 20 mEq, Q2H ramelteon, 8 mg, QHS senna, 2 Tablet, QHS zonisamide, 200 mg, DAILY Diet order: dysphagia 6 soft and bite sized Nutrition Risk Level: High (1) Calories needed: 2309-0457 kcal MSJ x 1.2-1.3 Protein needed: 70 g protein grams/k.2 A: Inadequate oral intake related to acute as evidenced by persistent nausea and vomitting. 52 yo female admitted with progressive weakness, n/v x 2 wks, poor PO. Vomited this am. Oral contrast from early January still in abdomen. GI and neuro w/u ongoing. Interview deferred, chart reviewed. Wgt stable x ~2 wks, 5 wks, down 14.5 kg (20%) x ~7 wks per EMR, down 27% x ~18 mo. BMI lower end of normal range. Pt meets criteria on admit for malnutrition related to acute illness as evidenced by estimated intake <50% of estimated needs x 2 wks, wgt loss of 20% x ~7 wks. Plan for PPN while medical w/u continues. Suggest 680 kcal +250 ml IV lipid to provide 1180 kcal, 85 g protein, ~78% est kcal and 100% est protein needs. At high risk for refeeding syndrome. Mg, Phos currently wnl, ctm, replete prn. K+low, IV repleted, recheck later today prior to PPN. Received 1 L D5 late yesterday. PPN to provide 100 g dextrose, 1.2 mg/kg/min dextrose. Suggest add IV thiamine to support CHO metabolism. Will follow. Note, unable to adjust electrolytes in PPN, will need to replete electrolytes separately. P: Continue oral diet as tolerated Rec PPN of 680 kcal + 250 ml 20% IV lipid Please add IV thiamine 100 mg daily Monitor lytes, Mg, Phos, Ca daily, replete prn Monitor wgt daily as able Monitor PO tolerance Continue to monitor intake, wgt, labs, skin, bowels, comfort RD following Shaylee Salazar MS, RD, CD * Brayan Polk MD - 03/07/2022 1842 EDTAssociated Order(s): CONSULT NEUROLOGY [facility] Neurology Inpatient Consultation PATIENT NAME: Yens White PATIENT : 1970 PCP: Romario Hairston CONSULTING PROVIDER: Dr Henderson DATE OF SERVICE: 03/07/2022 CHIEF COMPLAINT: Encephalopathy, nausea and vomiting HISTORY Ynes White is a 52 y.o. 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 We have been trying to adjust herseizure medicines because of side effects and breakthrough seizures. Most recently when I saw her in clinic February 16 we added lamotrigine, very slow titration initiated. She was concurrently taking zonisamide 200mg/d (higher doses caused anorexia), and lacosamide 50mg twice a day. The next week herfriend Ever called and said that she had been vomiting and went to the ED and was given antinausea medicine. Shortly afterwards we stopped her lamotrigine in case it was a reaction to that medicine. She continued to worsen and had several other ED visits for nausea and vomiting. Today when she presented she was admitted. Urinalysis showed a significant infection and she has been started on antibiotics. The admitting team was concerned about symptoms potentially suggestive of cauda equina syndrome so an MRI of the lumbar spine was done but was without any concern for that condition. Abdominal x-ray also not showing acute findings. She has described a mild rash but hasn't had any mucosal involvement. She has been afebrile. Ynes herself is having trouble describing her current symptoms, but was brought to the ED by her attentive friend Ever, and her sister as well. She has been off lamotrigine for more than a week, and achieved only 1 tablet twice a day. It has been hard for her to holdfood or drink down lately, but she does think she has been able to take her medications relatively consistently. Past Medical History: Diagnosis Date ??? 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 Exercise involving walking flat surfaces ??? History of cranial surgery 07/12/2020 ??? History of general anesthesia ??? Left-sided nontraumatic intracerebral hemorrhage (HCC) 03/02/2020 Status post decompressive hemicraniectomy ??? Memory disorder ??? Shoulder joint pain right FAMILY HISTORY family history includes Cancer (age of onset: 72) in her mother; Cancer (age of onset: 79) in her father; Cancer (age of onset: 80) in her maternal grandmother. SOCIAL HISTORY reports that she has been smoking. She has a 3.75 pack-year smoking history. She has never used smokeless tobacco. She reports current alcohol use. She reports that she does not use drugs. ALLERGIES Allergies Allergen Reactions ??? Citalopram Other reaction(s): increased anxiety ??? Duloxetine Other reaction(s): increased anxiety ??? Gabapentin ??? Levetiracetam Anxiety ??? Pregabalin Other reaction(s): dizziness ??? Trazodone ??? Zolpidem Other reaction(s): sleep walking with over 5 mg CURRENT MEDICATIONS Current Facility-Administered Medications Medication Dose Route Frequency Provider Last Rate Last Admin ??? apixaban (ELIQUIS) tablet 2.5 mg 2.5 mg oral BID Yung Henderson MD ??? [START ON 03/08/2022] aspirin chewable tablet 81 mg 81 mg oral DAILY Yung Henderson MD ??? [START ON 03/08/2022] buPROPion (WELLBUTRIN SR) SR tablet 150 mg 150 mg oral DAILY Yung Henderson MD ??? [START ON 03/08/2022] cefTRIAXone (ROCEPHIN) 1,000 mg in sodium chloride (NS MBP) 50 mL IVPB 1,000 mg intravenous Q24H Yung Henderson MD ??? dextrose 5 %-0.45 % sodium chloride infusion 1,000 mL intravenous CONTINUOUS Yung Henderson MD 100 mL/hr at 03/07/22 1649 1,000 mL at 03/07/22 1649 ??? lacosamide (VIMPAT) oral solution 50 mg 50 mg oral BID Yung Henderson MD ??? lidocaine (PF) 10 mg/mL (1 %) injection 2 mg 2 mg intradermal PRN Yung Henderson MD ??? metoclopramide (REGLAN) injection 5 mg 5 mg intravenous Q6H PRN Yung Henderson MD 5 mg at 03/07/22 1310 ??? polyethylene glycol 3350 (MIRALAX) packet 17 g 17 g oral Daily PRN Yung Henderson MD ??? senna (SENOKOT) tablet 1 Tablet 1 Tablet oral BID PRN Yung Henderson MD ??? [START ON 03/08/2022] zonisamide (ZONEGRAN) capsule 200 mg 200 mg oral DAILY Yung Henderson MD PHYSICAL EXAMINATION BP (!) 161/107 (BP Cuff Location: Left arm) Pulse 104 Temp 36.3 ??C (97.3 ??F) (Oral) Resp 21 Ht 170.2 cm (67) Wt 58.1 kg (128 lb) SpO2 99% BMI 20.05 kg/m?? General: Lethargic, diffuse pallor, mildly swollen face, dry mucous membranes but no lesions in eyes or mouth membranes, no edema, unlabored breathing. NEUROLOGIC EXAM Spontaneously alert, makes good eye contact, tries to answer questions but sometimes gets confused in the middle of answering and loses track of her thoughts, dysarthria worse than baseline but with no aphasia, mild bifacial weakness but activates bilaterally symmetrically, normal extraocular movements. Global diffuse weakness in the range of 4/5 proximally and distally in the arms and the legs. Deep tendon reflexes present but mildly diminished bilaterally at brachioradialis, biceps, patella and Achilles. Normal light touch sensation bilaterally in the face, arms and legs. LABORATORY DATA: Lab Results Component Value Date CRP 69.5 (H) 07/16/2020 Lab Results Component Value Date CPK 44 08/01/2020 CK 90 03/07/2022 Lab Results Component Value Date WBC 4.50 03/07/2022 RBC 3.94 03/07/2022 HGB 13.1 03/07/2022 SPHCT 34.9 09/18/2021 MCV 98 03/07/2022 MCHC 33.9 03/07/2022 RDW 15.6 09/18/2021 PLT 160 03/07/2022 LY% 43.4 (H) 09/18/2021 MO% 5.5 09/18/2021 EOS% 0 09/18/2021 BA% 0 09/18/2021 ANC1 2.4 09/18/2021 LY#1 2.1 09/18/2021 MO#1 0.3 09/18/2021 EO#1 0 (L) 09/18/2021 Lab Results Component Value Date NA 137 03/07/2022 K 4.1 03/07/2022 CL 105 03/07/2022 CO2 22 03/07/2022 ANIONGAP 10 03/07/2022 GLU 99 09/18/2021 BUN 18 03/07/2022 CREATININE 0.61 03/07/2022 CALCGFR 106 03/07/2022 CA 10.4 09/18/2021 PROT 6.1 (L) 09/18/2021 SPEALB 3.6 09/18/2021 BILT 0.5 09/18/2021 SGOT 28 09/18/2021 SGPT 20 09/18/2021 APS 267 (H) 09/18/2021 Results for YNES WHITE ( ) as of 03/07/2022 18:45 Ref. Range 03/07/2022 09:44 Color Latest Ref Range: Colorless to Dark Yellow Brown (A) Clarity, UA Latest Ref Range: Clear Cloudy (A) Specific [place], Urine Latest Ref Range: 1.001 - 1.035 <=1.005 pH, UA Latest Ref Range: 4.6 - 8.0 8.5 (H) Glucose, UA Latest Ref Range: Negative Negative Bilirubin, UA Latest Ref Range: Negative 2+ (A) Ketones Latest Ref Range: Negative 1+ (A) Blood, UA Latest Ref Range: Negative 3+ (A) Protein, UA Latest Ref Range: Negative 3+ (A) Urobilinogen, UA Latest Ref Range: 0.2 , 1.0, Normal mg/dL 1.0 Nitrite Latest Ref Range: Negative Positive (A) Leuk Esterase Latest Ref Range: Negative 3+ (A) WBC, UA Latest Ref Range: 0 - 3 Cells/HPF 11 - 50 (A) RBC, UA Latest Ref Range: 0 - 2 Cells/HPF 11 - 50 (A) Bacteria, UA Latest Ref Range: None Seen Bacteria/HPF Many (A) BACTERIAL CULTURE, URINE Unknown Rpt (IN PROCESS) Urine Squamous Count, Auto Latest Ref Range: None Seen Cells/HPF Few (A) NEUROIMAGING STUDIES: MRI of the lumbar spine 03/07/2022 without any signs suggestive of cauda equina syndrome. Noncontrast head CT 03/03/2022 redemonstrated left temporal encephalomalacia but no other acute findings. ASSESSMENT/PLAN: Ynes White is a 52 y.o. 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 Some of her symptoms seem to have started developing around the time of starting lamotrigine, but she has not had fevers and has no mucous membrane rashes to suggest this is a Cvpoxjc-Oonpoxp-tmbr presentation. The medicine has been stopped for about a week now and symptoms are worsening. It is possible this is all related to UTI, though it seems her symptoms are qu ite severe for that. She does not improve with antibiotics and IV fluids I might consider making significant changes to her antiseizure medicines on the possibility this could be a reaction to lamotrigine or one of her other medicines. She has now tried and failed levetiracetam, brivaracetam, topiramate, lamotrigine, and is currently taking lacosamide and zonisamide. This means the carbamazepine family and Depakote are probably the next most reasonable options. I would probably opt for Depakoteconsidering the wide variety of methods of delivery and ability to introduce rapidly. Brayan Polk MD documented in this encounter ED Notes * Reina Paul RN - 03/07/2022 1056 EDT Blood drawn via butterfly needle per protocol, cultures tube(s) sent to lab per order. First set from left FA, dsd applied, second set from Right AC, dsd applied * Yves Main MD - 03/07/2022 0908 EDT Emergency Department Visit I, Yves Main MD, performed a history and exam of this patient and discussed the case withthe resident. I have reviewed and edited this note, and the documentation is consistent with my findings, assessment and plan. I fully participated in the medical decision making. Briefly, this patient is a 52-year-old female who presents with chief complaint of weakness in the setting of a history of hemorrhagic stroke, seizures. After review of the medical records, review ofher lab work including a urinalysis here, discussion with her and the family, this could be due to a urinary tract infection or could be due to medication complication. She had a CT scan of her head already on her previous visit. Given her weakness, possible urinary tract infection, patient will beadmitted to the hospital. I spoke with the admitting hospitalist. Chief Complaint No chief complaint on file. 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 She is undernourished due to severely decreased PO intake in last two weeks. Suspect drowsiness, general malaise andweakness, and perioral & right hand numbness secondary to polypharmacy from multiple antiepileptic medications. Emesis likely secondary to mild gastroenteritis vs flu vs medication side effect. Patient is hemodynamically stable and afebrile. Will administer fluids and discuss titration of seizure medications. Final diagnoses: None Disposition: No disposition on file HPI This note was created and authored by Glenys Luis working under the supervision of Yves Main MD. Ynes White is a 52 y.o. female with a complicated history most notable for TBI 2/2 hemorrhagic stroke in 2019 c/b seizures who presents to the ED for emesis, weakness, and failure to thrive x1-2 weeks. Per brother, pt was in her normal baseline state of health 2 weeks ago, able to ambulate, feed, and toilet herself. She has gradually become weaker in the last 2 weeks, now unable to get out of bed. Has had almost daily emesis for the last week and is unable to keep down either liquids or solids. She report a few days of perioral numbness and right hand numbness causing loss of dexterity.Denies diarrhea, brother states she has not had a BM in about 10 days which he states is her baseline. Patient denies chest pain, shortness of breath, and pain other than abdominal discomfort. She endorses pain with urination but appears to indicate that this is related to her new urinary catheter;denies burning with urination. Brother also reports she has been drowsy for several weeks, attributes this to new seizure medication. He has not noted any seizure-like activity. Patient lives at home with brother who has no support and is unable to take care of her in this condition, requires extra support. Per chart review and discussion with Ever, patient started Lamotrigine 02/16/22 but this was discontinued 03/01/22 after patient had several bouts of emesis for which she was seen in the ED. Yesterday she was instructed by Dr. Polk to continue with only zonisamide and lacosamide. She was last seen by Dr. Polk 02/16/22. History was provided by: patient and brother Ever at bedside Patient's pertinent PMH, FH, SH were reviewed and edited as necessary. Review of Systems Pertinent positives as noted in HPI Physical Exam Vital Signs Temp: 36.9 ??C (98.4 ??F) Temp src: Oral There is no height or weight on file to calculate BMI. A medical screening exam was performed. Vitals and nursing note reviewed. Constitutional: General: Not in acute distress. Appearance: Appears disheveled and unkept. Appears undernourished. HENT: Nose: Nose normal. Mouth/Throat: tongue is bright red. Poor dentition Mouth: Mucous membranes are dry, lips chapped. Pharynx: Oropharynx is clear. Eyes: Extraocular Movements: EOM normal, no nystagmus. Conjunctiva/sclera: Conjunctivae normal. Pupils: Pupils are equal, round, and reactive to light. Cardiovascular: Rate and Rhythm: Tachycardic, regular rhythm. Heart sounds: Normal heart sounds. Pulmonary: Effort: Pulmonary effort is normal. No retractions. Breath sounds: Normal breath sounds. No rhonchi. Abdominal: Palpations: Abdomen is soft, nontender. Tenderness: There is no abdominal tenderness. No masses or organomegaly Musculoskeletal: General: Normal range of motion. Skin: General: Skin is warm and dry. Neurological: Cognition: Oriented to self, not to place or time, thinks year is 1973. Some difficulty following commands Cranial Nerves: Reports decreased vision in right visual field which is her baseline Mild right facial droop which is baseline V1-V3: decreased sensation in R V3 distribution. Perioral numbness bilaterally. Decreased facial strength Tongue protrudes midline Shoulder shrug intact Strength: Diffusely decreased in all 4 extremities [employer] 4+/4 bilaterally Elbow extension and flexion 4+/5 bilaterally Hip flexion: 4-/5 bilaterally Ankle plantar and dorsiflexion: 4+/5 bilaterally Sensation: Sensation decreased in right hand, intact in left UE. Grossly intact in bilateral LEs Psychiatric: Mood and Affect: Mood and affect normal. Results An EKG was obtained and independently interpreted: sinus tachycardia, otherwise WNL Imaging obtained was reviewed and independently interpreted: n/a Laboratory results independently reviewed, significant for: CBC wnl Procedures Procedures Yves Main MD and Glenys Luis: We personally performed the services recorded. We confirm thedocumentation has been reviewed by us to accurately and completely record our work, treatment, procedures, and medical decision making. * Estela Cooley RN - 03/07/2022 0842 EDT Blood drawn via saline lock per protocol, blue, green, purple and yellow tube(s) sent to lab per order. * Estela Cooley RN - 03/07/2022 0840 EDT Patient requested a sip of water and was unable to keep the fluid down. * Masha Van - 03/07/2022 0835 EDT 12 Lead EKG Performed by Masha Van and shown to No att. providers found. documented in this encounter Miscellaneous Notes * Plan of Care - Milly Islas RN - 03/28/2022 1417 EDT Nursing Discharge Note D: Patient noted with discharge orders to: [facility]. A: Prescriptions provided to patient. Reviewed discharge instructions and prescriptions with Other IV d/c'd. Belongings collected and sent home with patient. [facility] R: Other verbalized understanding of discharge instructions and denied further questions. Milly Islas RN 03/28/2022 14:18 * Plan of Care - Ivonne Leija RN - 03/28/2022 0729 EDT Problem: High Fall Risk: Goal: Patient Will Remain Free from Fall-Related Injury Outcome: Met This Shift Problem: SKIN INTEGRITY Goal: Skin integrity will improve or be maintained Outcome: Ongoing Problem: Pressure Ulcer Prevention Goal: Absence Of Pressure Ulcer Outcome: Ongoing Problem: Cardiac: Goal: Ability to maintain clinical measurements within defined limits will improve Outcome: Ongoing Problem: Fluid Volume: Goal: Ability to achieve fluid & electrolyte balance will improve Outcome: Ongoing Problem: Sensory: Goal: Ability to compensate for vision loss will be supported Outcome: Ongoing Problem: Daily Care Plan Goals Goal: Care Plan Documentation Flowsheets (Taken 03/27/2022 2100) Area of Focus: Nutrition/ Diet Goal This Shift: Will consume adequate calories PO Note: Pt had an uneventful shift. Urine in Reyes is dark and cloudy, needs a UA. Charge aware, dayshift aware. Refused HS snack, but per report is eating more during day. Turned q2, slept most of night.VSS * Plan of Care - Milly Islas RN - 03/27/2022 1806 EDT Problem: High Fall Risk: Goal: Patient will Remain Free of Falls due to Altered Elimination Outcome: Ongoing Problem: SKIN INTEGRITY Goal: Skin integrity will improve or be maintained Outcome: Ongoing Problem: High Fall Risk: Goal: Patient will Remain Free of Falls due to Confusion Outcome: Ongoing Problem: Fluid Volume: Goal: Ability to achieve fluid & electrolyte balance will improve Outcome: Ongoing Pt alert oriented to self. Has aphasia at baseline. VSS, afebrile. Dysphasia diet. Poor PO fluid intake, encouraged to drink boost. Able to feed self with adaptive equipment. Eating about 50% of meals. Reyes placed this am for urinary retention, per md order. Pt was bladder scanned for >500 prior to reyes insertion. Reyes draining cloudy orange urine. Pt oob in chair this morning, 2 assist with walker back to bed. Continues to have generalized weakness. Bed alarm for safety. Hourly rounding.Call farris within reach. * Plan of Care - Ivonne Leija RN - 03/27/2022 0532 EDT Problem: High Fall Risk: Goal: Patient Will Remain Free from Fall-Related Injury Outcome: Met This Shift Problem: SKIN INTEGRITY Goal: Skin integrity will improve or be maintained Outcome: Ongoing Problem: Pressure Ulcer Prevention Goal: Absence Of Pressure Ulcer Outcome: Ongoing Problem: Cardiac: Goal: Ability to maintain clinical measurements within defined limits will improve Outcome: Ongoing Problem: Fluid Volume: Goal: Ability to achieve fluid & electrolyte balance will improve Outcome: Ongoing Problem: NUTRITION Goal: Nutritional Status Is Improving Outcome: Ongoing Problem: Sensory: Goal: Ability to compensate for vision loss will be supported Outcome: Ongoing Problem: Daily Care Plan Goals Goal: Care Plan Documentation Flowsheets (Taken 03/26/2022 2100) Area of Focus: GI//Elimination Goal This Shift: Will void urine Note: Has not voided since reyes removal, MD instructed to straight cath at 500, currently at 466. Slept through night, VSS. Turned q2. * Plan of Care - Viviana Mathis RN - 03/26/2022 1418 EDT Data: Pt Hd#19 admitted with encephalopathy and malnutrition. Pt A+Ox2, able to make needs known when prompted. Pt denies pain. Catheter was in place for 22 days d/t acute urinary retention. Urine dark, cloudy with sediment and malodorous. Action: Encouraging PO intake and PO hydration. MD aware of urinary status, removed reyes per orders, bladder scanned for ~170mls at 1630 after unsuccessful attempt to void. Response/Plan: Pt calm and cooperative with care. Appears to have more appetite today, pt at yogurtfor breakfast, most of tuna sandwich for lunch. Pt able to dangle at bedside without assist for meals. Plan to offer toilet and bladder scan Q6hr. Viviana Mathis RN 03/26/2022 14:18 Problem: High Fall Risk: Goal: Patient will Remain Free of Falls due to Altered Mobility Outcome: Met This Shift Problem: NUTRITION Goal: Nutritional Status Is Improving Outcome: Ongoing * Plan of Care - Ivonne Leija RN - 03/26/2022 0528 EDT Problem: High Fall Risk: Goal: Patient Will Remain Free from Fall-Related Injury Outcome: Met This Shift Problem: SKIN INTEGRITY Goal: Skin integrity will improve or be maintained Outcome: Ongoing Problem: Pressure Ulcer Prevention Goal: Absence Of Pressure Ulcer Outcome: Ongoing Problem: Fluid Volume: Goal: Ability to achieve fluid & electrolyte balance will improve Outcome: Ongoing Problem: NUTRITION Goal: Nutritional Status Is Improving Outcome: Ongoing Problem: Sensory: Goal: Ability to compensate for vision loss will be supported Outcome: Ongoing Problem: Cardiac: Goal: Ability to maintain clinical measurements within defined limits will improve Outcome: Ongoing Problem: Daily Care Plan Goals Goal: Care Plan Documentation Outcome: Ongoing Flowsheets (Taken 03/24/2022 2100) Area of Focus: Nutrition/ Diet Goal This Shift: Will consume adequate calories PO Note: Ate a good dinner, refused HS snack, did have some applesauce with meds. Denies pain, pleasant. No anxiety expressed or assessed. Reyes draining clear jayant urine, VSS. Turned q2 through shift,slept most of night. * Plan of Care - Viviana Mathis RN - 03/25/2022 1135 EDT Data: Pt HD#18 admitted with encephalopathy and malnutrition. Pt alert, oriented to person and place, able to make needs known when prompted. Pt endorsing anxiety this morning saying her thoughts were racing and that beng unable to find the right words makes it difficult to express her needs. Pt reporting little pain, saying that abdomen feels much better than yesterday. Action: MD aware of anxiety and new dose of PRN atarax given. Encouraging PO intake, self feeding with foam roller skate assembler for spoon and OOB to chair. New order for Marinol due this evening. Response: Pt calm and cooperative with care. Pt got OOB to the chair with x2 assist and walker, pt appears to have difficulty coordinating legs. Pt ate all yogurt for breakfast, refused lunch. Pt moving legs in bed and turning side to side independently. Viviana Mathis RN 03/25/2022 11:35 Problem: High Fall Risk: Goal: Patient will Remain Free of Falls due to Altered Mobility Outcome: Met This Shift Problem: SKIN INTEGRITY Goal: Skin integrity will improve or be maintained Outcome: Met This Shift Problem: NUTRITION Goal: Nutritional Status Is Improving Outcome: Ongoing * Plan of Care - Uma Alvarenga RN - 03/24/2022 1747 EDT Problem: Daily Care Plan Goals Goal: Care Plan Documentation Outcome: Met This Shift Flowsheets (Taken 03/24/2022 0900) Area of Focus: GI//Elimination Goal This Shift: pt. will have BM during shift Note: Data: Pt. Is a 52 y.o. female admitted for altered mental status and UTI. Pt. Reported no pain, no chest pain, no SOB. Last documented BM 03/17. Action: Medications administered per orders (see emar). Education provided. Hygiene, repositioning complete. Reyes care complete. MD notified. Bowel meds administered. Pt up to chair during shift. Neuro checks complete. Response: Pt. Had BM during shift. Pt. Able to make needs known and uses call farris appropriately. Hourly rounding for safety. Bed alarm activated for safety. WCTM. Uma Alvarenga RN 03/24/2022 17:43 * Plan of Care - Ivonne Leija RN - 03/24/2022 0556 EDT Problem: High Fall Risk: Goal: Patient Will Remain Free from Fall-Related Injury Outcome: Met This Shift Problem: SKIN INTEGRITY Goal: Skin integrity will improve or be maintained Outcome: Ongoing Problem: Pressure Ulcer Prevention Goal: Absence Of Pressure Ulcer Outcome: Ongoing Problem: Cardiac: Goal: Ability to maintain clinical measurements within defined limits will improve Outcome: Ongoing Problem: Fluid Volume: Goal: Ability to achieve fluid & electrolyte balance will improve Outcome: Ongoing Problem: NUTRITION Goal: Nutritional Status Is Improving Outcome: Ongoing Problem: Sensory: Goal: Ability to compensate for vision loss will be supported Outcome: Ongoing Problem: Daily Care Plan Goals Goal: Care Plan Documentation Flowsheets (Taken 03/23/2022 2100) Area of Focus: Nutrition/ Diet Goal This Shift: will consume adequate calories PO Note: Slept most of shift, thoroughly uneventful night. Took pills with applesauce. CPN running, Reyes patent, draining clear jayant urine. Tachycardic, other VSS * Plan of Care - Uma Alvarenga RN - 03/23/2022 1840 EDT Problem: Daily Care Plan Goals Goal: Care Plan Documentation Flowsheets Taken 03/23/2022 0342 by Jacinta Daniel RN Goal This Shift: Maintain skin integrity Taken 03/22/2022 193 by Jacinta Daniel RN Area of Focus: Skin Integrity Note: Data: Pt. is a 52 y.o female admitted for altered mental status and UTI. Pt. reports not feeling hungry. Pt. ate 25% of meals during shift. Pt. alert to self. Action: Medication administered per orders (see emar). Education provided. Pt. up to chair during shift. [id number] complete during shift. Hygiene complete during shift. Reyes care complete. Response: Pt. able to make needs known and uses call farris appropriately. Hourly rounding for safety. Bed alarm activated for safety. WCTM. Uma Alvarenga RN 03/23/2022 18:39 * Plan of Care - Jacinta Daniel RN - 03/23/2022 0505 EDT Problem: SKIN INTEGRITY Goal: Skin integrity will improve or be maintained Outcome: Ongoing Problem: NUTRITION Goal: Nutritional Status Is Improving Outcome: Ongoing Pt AAO to self. When asked pt date she said she could picture it in her mind but unable to verbalize it. She also did not know where she was but that it felt familiar. VSS no pain reported. Dysphagiadiet Q2 repo able to take meds whole in apple sauce. Q4 neuro checks done. No changes. Pt slept through the night. * Plan of Care - Yohana Vazquez RN - 03/22/2022 1924 EDT Problem: High Fall Risk: Goal: Patient will Remain Free of Falls due to Med. Side Effects Outcome: Met This Shift Problem: High Fall Risk: Goal: Patient Will Remain Free from Fall-Related Injury Outcome: Met This Shift Problem: High Fall Risk: Goal: Patient will Remain Free of Falls due to Altered Elimination Outcome: Met This Shift Problem: High Fall Risk: Goal: Patient will Remain Free of Falls due to Dizziness/Vertigo Outcome: Met This Shift Problem: High Fall Risk: Goal: Patient will Remain Free of Falls due to Altered Mobility Outcome: Met This Shift Problem: Pressure Ulcer Prevention Goal: Absence Of Pressure Ulcer Outcome: Met This Shift Problem: High Fall Risk: Goal: Patient will Remain Free of Falls due to Confusion Outcome: Met This Shift Problem: Daily Care Plan Goals Goal: Care Plan Documentation Outcome: Ongoing Problem: SKIN INTEGRITY Goal: Skin integrity will improve or be maintained Outcome: Ongoing Problem: Cardiac: Goal: Ability to maintain clinical measurements within defined limits will improve Outcome: Ongoing Problem: Fluid Volume: Goal: Ability to achieve fluid & electrolyte balance will improve Outcome: Ongoing Problem: NUTRITION Goal: Nutritional Status Is Improving Outcome: Ongoing Problem: Sensory: Goal: Ability to compensate for vision loss will be supported Outcome: Ongoing * Plan of Care - Jacinta Daniel RN - 03/22/2022 0453 EDT Problem: High Fall Risk: Goal: Patient Will Remain Free from Fall-Related Injury Outcome: Ongoing Problem: SKIN INTEGRITY Goal: Skin integrity will improve or be maintained Outcome: Ongoing Problem: Cardiac: Goal: Ability to maintain clinical measurements within defined limits will improve Outcome: Ongoing Problem: NUTRITION Goal: Nutritional Status Is Improving Outcome: Ongoing Pt AAO to self. When asked pt date she said she could picture it in her mind but unable to verbalize it. She also did not know where she was but that it felt familiar. VSS no pain reported. Dysphagiadiet Q2 repo able to take meds whole in apple sauce. Q4 neuro checks done. No changes. Pt slept through the night. * Plan of Care - Yohana Vazquez RN - 03/21/2022 1738 EDT Problem: High Fall Risk: Goal: Patient will Remain Free of Falls due to Med. Side Effects Outcome: Met This Shift Problem: High Fall Risk: Goal: Patient Will Remain Free from Fall-Related Injury Outcome: Met This Shift Problem: High Fall Risk: Goal: Patient will Remain Free of Falls due to Altered Elimination Outcome: Met This Shift Problem: High Fall Risk: Goal: Patient will Remain Free of Falls due to Dizziness/Vertigo Outcome: Met This Shift Problem: High Fall Risk: Goal: Patient will Remain Free of Falls due to Altered Mobility Outcome: Met This Shift Problem: Pressure Ulcer Prevention Goal: Absence Of Pressure Ulcer Outcome: Met This Shift Problem: High Fall Risk: Goal: Patient will Remain Free of Falls due to Confusion Outcome: Met This Shift Problem: Daily Care Plan Goals Goal: Care Plan Documentation Outcome: Ongoing Problem: SKIN INTEGRITY Goal: Skin integrity will improve or be maintained Outcome: Ongoing Problem: Cardiac: Goal: Ability to maintain clinical measurements within defined limits will improve Outcome: Ongoing Problem: Fluid Volume: Goal: Ability to achieve fluid & electrolyte balance will improve Outcome: Ongoing IV mag given this AM Problem: NUTRITION Goal: Nutritional Status Is Improving Outcome: Ongoing Nutrition consult in place, encouraging PO intake, CPN running * Plan of Care - Yohana Vazquez RN - 03/20/2022 1638 EDT Problem: High Fall Risk: Goal: Patient will Remain Free of Falls due to Med. Side Effects Outcome: Met This Shift Problem: High Fall Risk: Goal: Patient Will Remain Free from Fall-Related Injury Outcome: Met This Shift Problem: High Fall Risk: Goal: Patient will Remain Free of Falls due to Altered Elimination Outcome: Met This Shift Problem: High Fall Risk: Goal: Patient will Remain Free of Falls due to Dizziness/Vertigo Outcome: Met This Shift Problem: High Fall Risk: Goal: Patient will Remain Free of Falls due to Altered Mobility Outcome: Met This Shift Problem: High Fall Risk: Goal: Patient will Remain Free of Falls due to Confusion Outcome: Met This Shift Problem: Daily Care Plan Goals Goal: Care Plan Documentation Outcome: Ongoing Problem: SKIN INTEGRITY Goal: Skin integrity will improve or be maintained Outcome: Ongoing Problem: Pressure Ulcer Prevention Goal: Absence Of Pressure Ulcer Outcome: Ongoing Problem: Cardiac: Goal: Ability to maintain clinical measurements within defined limits will improve Outcome: Ongoing Problem: Fluid Volume: Goal: Ability to achieve fluid & electrolyte balance will improve Outcome: Ongoing Problem: NUTRITION Goal: Nutritional Status Is Improving Outcome: Ongoing * Plan of Care - Joyce Coffey RN - 03/18/2022 1821 EDT Problem: High Fall Risk: Goal: Patient Will Remain Free from Fall-Related Injury Outcome: Met This Shift Problem: SKIN INTEGRITY Goal: Skin integrity will improve or be maintained Outcome: Met This Shift Problem: Daily Care Plan Goals Goal: Care Plan Documentation Flowsheets (Taken 03/18/2022 0900) Area of Focus: Neuro Status Goal This Shift: Neuro status remains stable D: Admitted with altered mental status. Alert. Pleasant. States she slept well last night. A: CPN and fat emulsion continuously running. Scheduled mediations given. Q2 turns. Reyes care provided. Family and friends updated about patient. R: Reyes patent. VS stable. Denies pain, nausea, or SOB. No s/s of distress. HR up into 140s. Patient denies any cardiac symptoms. MD notified. PO metoprolol given. IV mag given for mag of 1.4. * Plan of Care - Marya Diaz LPN - 03/18/2022 0422 EDT Problem: High Fall Risk: Goal: Patient Will Remain Free from Fall-Related Injury Outcome: Ongoing Problem: High Fall Risk: Goal: Patient will Remain Free of Falls due to Altered Elimination Outcome: Ongoing Problem: Pressure Ulcer Prevention Goal: Absence Of Pressure Ulcer Outcome: Ongoing Patient alert to self - patient napped intermittently in the early part of the shift, eventually falling asleep at approximately 1 am- patient turned q2,patient denies pain, neasea vomiting and SOB. Hourly rounding performed safety maintained. * Plan of Care - Joyce Coffey RN - 03/17/2022 1640 EDT Problem: High Fall Risk: Goal: Patient will Remain Free of Falls due to Altered Elimination Outcome: Met This Shift Problem: Daily Care Plan Goals Goal: Care Plan Documentation Outcome: Ongoing Flowsheets (Taken 03/17/2022 0900) Area of Focus: Neuro Status Goal This Shift: neuro status remains WDL for patient Problem: SKIN INTEGRITY Goal: Skin integrity will improve or be maintained Outcome: Ongoing Problem: NUTRITION Goal: Nutritional Status Is Improving Outcome: Ongoing D: Admitted with altered mental status. Alert to self. Periods of drowsiness. Slurred speech. A: CPN and fat emulsion given continuously. Scheduled medications given. RN talked with patients sister. Q2 turns. Reyes care provided. Strict I+O's. 1000 mL fluid restriction. R: Fluid restriction maintained. Reyes patent. Denies pain, nausea, or SOB at rest. No s/s of distress. * Plan of Care - Marya Diaz LPN - 03/17/2022 0527 EDT Problem: High Fall Risk: Goal: Patient will Remain Free of Falls due to Med. Side Effects Outcome: Ongoing Problem: SKIN INTEGRITY Goal: Skin integrity will improve or be maintained Outcome: Ongoing Problem: Fluid Volume: Goal: Ability to achieve fluid & electrolyte balance will improve Outcome: Ongoing Patient alert to self only, somnolent upon initial meeting, patient woke naturally at ~2100. The patient took medications whole in apple sauce one at a time- tolerated well. CPN and fat emulations tolerated well. Patient turned and repositioned Q2, reyes patet and draining. Patient c/o of inabilityto sleep- requesting angelo diehl ordered HS melatonin. Hourly rounding, safety maintained. * Plan of Care - Shahida Larios RN - 03/16/2022 1859 EDT Nsg: this rn assumed care of this patient at time of 0700. Pt more awake first thing this am, pt talking, pt took her am meds well one at a time with applesauce and pt did well with those. Pt ate 25%of her breakfast, pt is a feeder. Asp prec followed. Pt smiling and verbal. Pt oriented to self. Fall prec in place. Bed alarm is on. Pt turned and repositioned with 2 assist every 2 hours and prn. Pt was on tele this am, nsr, pt has denied any chest pain or pressure. No s/s of cardiac distress observed or noted. Pt's telemetry was discontinued per m.d.. order this afternoon. Reyes catheter draining qs clear yellow urine. Pt is passing flatus. Hrr, lungs, clear, diminished, pt has denied any sob. 2 saline locks left forearm discontinued by major account representative earlier today. Sites negative, nontender, dressings cdi. Pt's picc right arm, site negative, nontender, flushes well, good blood return. cpn infusingat 65.3ml per hour per m.d. order. Fat emulsion infusing at 10.4ml per hour. Pt asking for a cigarette earlier today, pt did not want a nicotine patch. This rn notif. Dr. Kessler and nicotrol inhaler order obtained. Pt used the inhaler a few times. Pt med x 2 this shift for headache with tylenol 975mg po with effective relief. Pt's sister and pt's friend up to visit both are very pleasant and kind. This rn notif. Dr. Kessler regarding pt's sister's request to have podiatry see pt while she was her e to trim and address her toe nails. C.s. 104 at time of 0800. new client banking services clerk in to see pt this am. Pt sleeping at this time. No s/s of pain observed or noted. Fall prec in place. Bed alarm is on. See flow sheets and emar for furthur information. * Plan of Care - Maya Guerra RN - 03/16/2022 0226 EDT Problem: High Fall Risk: Goal: Patient will Remain Free of Falls due to Med. Side Effects Outcome: Ongoing Problem: High Fall Risk: Goal: Patient will Remain Free of Falls due to Altered Elimination Outcome: Ongoing Data: Patient is more alert this shift than previous shift manager. Able to understand patient's words more clearly and making appropriate observations. Still with some garbled speech. Not pulling at lines as much. PICC line in place in right arm. PIV in left arm x 2 still intact. Unable to complete neuro checks due to patient unable to participate Action: MD at bedside. PPN and IL via PICC line. Took pills one at a time in applesauce without difficulty. Reyes remains in place. Response: Repeat 1800 NA lab draw via phlebotomy. Continue to assess and monitor. Maya Guerra RN 03/16/2022 2:27 * Plan of Care - Milly Islas RN - 03/15/2022 1448 EDT Problem: High Fall Risk: Goal: Patient Will Remain Free from Fall-Related Injury Outcome: Ongoing Problem: High Fall Risk: Goal: Patient will Remain Free of Falls due to Altered Elimination Outcome: Ongoing Problem: Fluid Volume: Goal: Ability to achieve fluid & electrolyte balance will improve Outcome: Ongoing Problem: NUTRITION Goal: Nutritional Status Is Improving Outcome: Ongoing Pt drowsy at times. Slurred speech, occasionally able to converse but mostly mumbling/difficult to understand. While awake she pulls at IV lines and attempts PPN infusing via PIV. Pt had PICC line placed today, message to dietitian about possibly changing to CPN tomorrow. Took am PO meds in apple sauce. Unable to wake pt for 1200 sodium chloride pill. but was able to take 1700 pill. Reyes patent and draining. Inc of bowel, medium BM, inc care provided. NSR on tele. Bed alarm for safety, * Plan of Care - Milly Islas RN - 03/14/2022 1823 EDT Assumed care of patient at approximately 9:45am. PCU patient. Received one 100ml 3% Sodium chloridebolus, second bolus currently infusing per order tolerating well. Q4hr sodium checks, see lab results. Tele NSR, no changes noted. Vital signs stable. Continues on PPN, tolerating well. Received two bags of IV magnesium (4grams total), no s/s of adverse reaction. Pt drowsy this morning but became more alert in afternoon. Answering some questions appropriately, but mostly incomprehensible speech/mumbling. Started to pull on IVs and blankets, moving around in bed, putting legs up on bed rails. Did not follow instruction when asked to grasp this RN's hands etc. unable to complete full neuro asses sment/check d/t pt unable/not following simple commands. But she appears to be making meaningful movements. 1:1 initiated for safejocy. PT went to EEG at approximately 1600 results pending. Poor PO intake this shift. Reyes patent and draining. No BM, is passing flatus. Bed alarm for safety. Seizure precautions. Problem: SKIN INTEGRITY Goal: Skin integrity will improve or be maintained Outcome: Ongoing Problem: Fluid Volume: Goal: Ability to achieve fluid & electrolyte balance will improve Outcome: Ongoing Problem: FLUID AND ELECTROLYTE IMBALANCE Goal: Fluid and electrolyte balance are achieved/maintained and exhibits signs of adequate hydration Outcome: Ongoing * Plan of Care - Adilene Ambrose RN - 03/14/2022 0600 EDT Pt a/o to self only. Pt continued with increase and confusion and agitation and climbing out of bed. Pt was not able to re-directed. New medication orders received, pt medicated and pt calmed down and slept all night. Pt had a sitter with her all night to maintain safety and no more falls. Pt had no difficulty with taking her PO medications. Safety had been maintained overnight with physicist light and optics at the bedside all night. Reyes remains in place and patent. Urine jayant in color. No bowel movement overnight. Call farris remains within reach. Problem: Daily Care Plan Goals Goal: Care Plan Documentation Outcome: Ongoing Problem: SKIN INTEGRITY Goal: Skin integrity will improve or be maintained Outcome: Ongoing Problem: High Fall Risk: Goal: Patient will Remain Free of Falls due to Confusion Outcome: Ongoing * Plan of Care - Trish Loco RN - 03/13/2022 1528 EDT Patient has multiple times tried getting out of bed. Alert and also confused throughout the day. Patient had family visit today after they left extremely agitated. Ativan given at this time. Patient pulling on reyes some blood tinge red in tube and back. ppn at 83mls in rfa and fats infusing at 10.4. patient had a smear of bowels today. Patient bed alarm on safety maintained. Will continue to monitor. Problem: High Fall Risk: Goal: Patient will Remain Free of Falls due to Altered Mobility Outcome: Met This Shift Problem: SKIN INTEGRITY Goal: Skin integrity will improve or be maintained Outcome: Met This Shift * Plan of Care - Adilene Ambrose RN - 03/13/2022 0630 EDT Pt a/o to person only. Pt needed reorienting multiple times throughout the night. IV site remain intact. PPN and Fat running into IV site in right arm. Pt took H medications without difficulty. Pt complained of no pain/n/v. Pt turned and repositioned q2 hours. Call farris within reach. Bed alarmed. Hourly rounds in place for safety. Problem: Daily Care Plan Goals Goal: Care Plan Documentation Outcome: Ongoing Problem: High Fall Risk: Goal: Patient Will Remain Free from Fall-Related Injury Outcome: Ongoing Problem: SKIN INTEGRITY Goal: Skin integrity will improve or be maintained Outcome: Ongoing * Plan of Care - Trish Loco RN - 03/12/2022 1552 EDT Patient has been repositioned every 2hrs. PPn infusing along with Fats. Reyes draining medium yellow urine.Patient has been alert most of the shift. No acute events.Will continue to monitor Problem: SKIN INTEGRITY Goal: Skin integrity will improve or be maintained Outcome: Met This Shift Problem: High Fall Risk: Goal: Patient will Remain Free of Falls due to Confusion Outcome: Met This Shift * Plan of Care - Magalie Vaughan RN - 03/12/2022 0455 EDT Patient more alert at beginning of shift prior to med pass. Pt attempting to converse with RN, Pt more drowsy during the night, but awakens to alert mentation during Q2 turns. PPN infusing to peripheral IV. Reyes draining well to gravity. Pt drowsy overnight but attempting to respond to questions No acute events, All VSS Problem: High Fall Risk: Goal: Patient Will Remain Free from Fall-Related Injury Outcome: Met This Shift * Plan of Care - Miladis Richardson RN - 03/11/2022 1745 EDT End of shift note: ?? Neuro: AO to self, w/ slightly improved movement in BLUE & BLLE. L sided drift on UE & LE noted. Speech continues to be slurred. ~1630, pt reported feeling not depressed but yeah and pointed to her stomach. RN asked if she felt some anxiety & pt replied yes. Ativan given 1x. Continuesto move poorly w/ two stand pivot. Pulmonary:RA CV: AFVSS GI: Incont, on PPN w/ GI soft diet. Little intake w/ assistance. Last BM today, 03/11 incont : Reyes in place. Good UOP IV: flushed Other: family to visit & updated ?? Problem: Daily Care Plan Goals Goal: Care Plan Documentation Outcome: Ongoing Problem: High Fall Risk: Goal: Patient will Remain Free of Falls due to Altered Elimination Outcome: Ongoing Problem: High Fall Risk: Goal: Patient will Remain Free of Falls due to Altered Mobility Outcome: Ongoing Problem: SKIN INTEGRITY Goal: Skin integrity will improve or be maintained Outcome: Ongoing * Plan of Care - Princess Denis RN - 03/11/2022 0331 EDT Problem: Daily Care Plan Goals Goal: Care Plan Documentation Outcome: Ongoing Flowsheets (Taken 03/10/2022 1900) Area of Focus: Neuro Status Goal This Shift: PT's current neuro status will be maintained or improved Problem: High Fall Risk: Goal: Patient will Remain Free of Falls due to Med. Side Effects Outcome: Ongoing Problem: High Fall Risk: Goal: Patient Will Remain Free from Fall-Related Injury Outcome: Ongoing Problem: SKIN INTEGRITY Goal: Skin integrity will improve or be maintained Outcome: Ongoing Assumed care of patient at 1900. Alert and oriented to self only. Slurred and hesitant speech. Facial numbness continues. Q4 neuro checks without change. Patient able to raise both of their legs and hold them for 5 seconds. Able to make movements against gravity with moderate hand grasps. Reyes patient and draining. PPN infusing as ordered. Patient resting comfortably in bed. Reliable to ring. Bed alarm on for safety. PRINCESS DENIS RN 03/11/2022 3:32 * Plan of Care - Miladis Richardson RN - 03/10/2022 1732 EDT End of shift note: Neuro: AO to self, continues to have numbness in LLE & in face. Limited movement in BLUE & BLLE. Speech is slurred & pt noted w/ expressive aphasia. Moves very poorly and did not toleratestand pivot to bedside commode w/ 2. Needed full assistance Pulmonary: RA w/ dimished breath sounds. Pt complained of congestion - Flonase refused however lozenges taken CV: AFVSS GI: Incont, on PPN w/ GI soft diet. Little intake w/ assistance. Last BM today, 03/10 : Reyes in place. Good UOP IV: flushed Other: family to visit & updated Problem: Daily Care Plan Goals Goal: Care Plan Documentation Outcome: Ongoing Problem: High Fall Risk: Goal: Patient will Remain Free of Falls due to Altered Elimination Outcome: Ongoing Problem: SKIN INTEGRITY Goal: Skin integrity will improve or be maintained Outcome: Ongoing * Plan of Care - Princess Denis RN - 03/10/2022 0520 EDT Problem: Daily Care Plan Goals Goal: Care Plan Documentation Outcome: Ongoing Flowsheets (Taken 03/09/20224) Area of Focus: GI//Elimination Goal This Shift: Increase bowel movements Problem: High Fall Risk: Goal: Patient Will Remain Free from Fall-Related Injury Outcome: Ongoing Problem: SKIN INTEGRITY Goal: Skin integrity will improve or be maintained Outcome: Ongoing Data: Assumed care of patient at 1900. Alert and oriented to self and place. VSS. Reporting no pain. Hesitant and slurred speech due to numbness and weakness in face. Able to make needs known and getpoint across with cuing and support. On PPN. Strong 2x assist to the commode. Reyes patent and draining. Action: Medications administered as ordered. PPN continued throughout shift. Tap water enema supplied this shift with a big bowel movement noted before administration and after. Patient with noted increased strength and mobility this shift. Able to utilize the commode with support. Response: Patient resting comfortably in bed. Reliable to ring and able to make needs known. Bed alarmed for safety. PRINCESS DENIS RN 03/10/2022 5:21 * Plan of Care - Armida Saini RN - 03/09/2022 1806 EDT Problem: Pressure Ulcer Prevention Goal: Absence Of Pressure Ulcer Outcome: Ongoing Pt on bedrest 2/2 increased weakness Pt turn and reposition q 2 hrs, PT worked with patient PPN infusing Mepilex border to coccyx Pt's skin remaining intact * Plan of Care - Princess Denis RN - 03/09/2022 0337 EDT Problem: Daily Care Plan Goals Goal: Care Plan Documentation Outcome: Ongoing Flowsheets (Taken 03/08/20222000) Area of Focus: Safety Goal This Shift: Pt will be safe from falls Problem: High Fall Risk: Goal: Patient Will Remain Free from Fall-Related Injury Outcome: Ongoing Data: Assumed care of patient at 1900. Alert and oriented to self and place, hesitant speech. Patient off the floor this shift for MRI with the plan to complete series 03/09. On PPN. Reyes patent and draining. Able to position self in bed side to side. Heavy 2 assist with movement outside of bed. Action: Medications administered as ordered with some delayed due to patient's MRI. notified this shift when patient refused their enema due to the being too tired. Education provided around this however, patient continued to refuse stating that they will be happy to do it any time tomorrow (03/09). Response: Patient resting comfortably in bed. Hourly rounding completed. Able to make needs known. PRINCESS DENIS RN 03/09/2022 3:53 * Plan of Care - Caren Gorman - 03/08/2022 0924 EDT Initial Case Management/Social Work Assessment and Discharge Plan/Readmission Risk Assessment REASON FOR ADMISSION: Altered mental status, unspecified altered mental status type Patient understands reason for admission: (P) Yes PATIENT INFO VERIFIED: (P) PCP Type of housing (single family, condo, apartment, long term, single room occupancy, [facility] funded hotel room, group usp) - Single family home Who does the patient live with? Friend, has a sister that is her guardian Does the patient have access to their own bedroom/bathroom/kitchen - or is it shared with others? yes Name of housing complex (ex [facility], [facility], etc)- n/a Housing Authority/Managing Organization - n/a Community Care Providers (case checker, [facility] nurse, etc) name and contact information- n/a LIVING ARRANGEMENTS AND ACCESSIBILITY ISSUES: Living Arrangements: (P) Friends Bathroom located on bedroom level?: (P) Yes What in home social supports are available to the patient? (P) Friends / neighbors, Family member(s) Is 24/7 care available? (P) No ADVANCED DIRECTIVES, POA &/or COLST IN PLACE: Healthcare Directive: No, patient does not have advance directive for healthcare treatment Information Provided on Healthcare Directives: No Information on Healthcare Directives Requested: No DIRECTIVES FOR FINANCES: Directive For Finances: No TRANSPORTATION: Transportation: (P) Ambulance CULTURAL, EVANGELICAL and/or LANGUAGE factors affecting health care/discharge planning: Spiritual/Cultural Requests: None Language/Literacy Needs Do you need us to provide any communication aids or devices?: No Insurance Information: Medical Insurance: Yes Type of insurance: Medicaid Referred to patient financial services: No Nutrition: DISCHARGE RISK ASSESSMENT: Total # selected above: Tentative plan to address the risk of re-hospitalization for those at HIGH MODERATE RISK: RAPT TOOL: SBIRT: FUNCTIONAL STATUS: Activities patient requires assistance: (P) Bathing, Dressing, Feeding, Grooming, Mobility Assistive Devices: None COMMUNITY RESOURCES/SUPPORTS: Primary Care Provider: Romario Hairston PCP Verified: Specialists: (P) Neurology Type of Home Health Services: (P) None DME Provider: Pharmacy: [id number] - [place], [place] - [address] [place] [address] AT SEC OF [facility] & [address] [address] [facility] [place] [place] [facility] [address] [facility] [address] [place] [id number] Home Health: Patient does outpatient speech and PT. At this time patient will need rehab upon discharge. Other: POST HOSPITAL TRANSITION PLAN: Patient is a 52 year old female who has asphasia. She lives with a friend who is her caregiver, however her friend does work. Per patient and her friend she's been veryweak, and worry about safety at home. Patient will most likely need SNF when she is medically ready. Patients sister Beverly reported she is her guardian, however CM can't find paper work on file. CMrequested for Beverly to bring the guardianship paper work to the hospital Caren Gorman 03/08/2022 9:24 * Plan of Care - Adriana Chaudhary RN - 03/07/2022 1340 EDT Assumed care of patient at 1230. Admit from ED via stretcher. Pt A&Ox1-2, poor historian. NSR on tele. Denies pain. Endorses nausea, PRN reglan given with good effect. T&R q2hr, skin intact on admission. Pt arrives with reyes, patent/draining. Jayant foul smelling urine noted. Call farris within reach, safety maintained. Please see flowsheet and MAR for more information. 1800- Enema given per MD order with no effect. Pt tolerated procedure well. Denies nausea or stomach upset at this time. Problem: High Fall Risk: Goal: Patient Will Remain Free from Fall-Related Injury Outcome: Ongoing Problem: SKIN INTEGRITY Goal: Skin integrity will improve or be maintained Outcome: Ongoing Problem: Pressure Ulcer Prevention Goal: Absence Of Pressure Ulcer Outcome: Ongoing documented in this encounter Plan of Treatment Upcoming Encounters Date Type Department Care Team (Late st Contact Info) Description 03/04/2025 14:00 EDT Telemedicine [facility] [address] [place], [place] [id number] Brayan Polk MD [address] [facility]- [address] [place] [phone] 07/14/2025 14:30 EDT Office Visit [facility] Hematology & Oncology - [address] [id number] Evin Maria MD [address] [place] [address], [address] [place] [phone] documented as of this encounter Procedures Procedure Name Priority Date/Time Associated Diagnosis Comments ECG REPORT - SCANNED 03/29/2022 14:29 EDT ECG REPORT - SCANNED 03/29/2022 14:29 EDT COMPLETE BLOOD COUNT Routine 03/28/2022 5:37 EDT PHOSPHORUS Routine 03/28/2022 5:37 EDT MAGNESIUM Routine 03/28/2022 5:37 EDT COMPREHENSIVE METABOLIC PANEL (CMP) Routine 03/28/2022 5:37 EDT COMPLETE BLOOD COUNT Routine 03/27/2022 6:09 EDT TRIGLYCERIDE Routine 03/27/2022 6:09 EDT PHOSPHORUS Routine 03/27/2022 6:09 EDT MAGNESIUM Routine 03/27/2022 6:09 EDT COMPREHENSIVE METABOLIC PANEL (CMP) Routine 03/27/2022 6:09 EDT POCT GLUCOSE, INTERFACED Routine 03/26/2022 8:24 EDT PHOSPHORUS Routine 03/26/2022 6:07 EDT MAGNESIUM Routine 03/26/2022 6:07 EDT COMPREHENSIVE METABOLIC PANEL (CMP) Routine 03/26/2022 6:07 EDT COMPLETE BLOOD COUNT Routine 03/26/2022 6:06 EDT POCT GLUCOSE, INTERFACED Routine 03/25/2022 6:02 EDT PHOSPHORUS Routine 03/25/2022 5:54 EDT MAGNESIUM Routine 03/25/2022 5:54 EDT COMPREHENSIVE METABOLIC PANEL (CMP) Routine 03/25/2022 5:54 EDT COMPLETE BLOOD COUNT Routine 03/25/2022 5:53 EDT POCT GLUCOSE, INTERFACED Routine 03/24/2022 5:57 EDT COMPLETE BLOOD COUNT Routine 03/24/2022 5:40 EDT TRIGLYCERIDE Routine 03/24/2022 5:39 EDT PHOSPHORUS Routine 03/24/2022 5:39 EDT MAGNESIUM Routine 03/24/2022 5:39 EDT COMPREHENSIVE METABOLIC PANEL (CMP) Routine 03/24/2022 5:39 EDT POCT GLUCOSE, INTERFACED Routine 03/23/2022 7:56 EDT COMPLETE BLOOD COUNT Routine 03/23/2022 6:00 EDT PHOSPHORUS Routine 03/23/2022 5:59 EDT MAGNESIUM Routine 03/23/2022 5:59 EDT COMPREHENSIVE METABOLIC PANEL (CMP) Routine 03/23/2022 5:59 EDT POCT GLUCOSE, INTERFACED Routine 03/23/2022 5:17 EDT COMPLETE BLOOD COUNT Routine 03/22/2022 5:54 EDT PHOSPHORUS Routine 03/22/2022 5:54 EDT MAGNESIUM Routine 03/22/2022 5:54 EDT COMPREHENSIVE METABOLIC PANEL (CMP) Routine 03/22/2022 5:54 EDT POCT GLUCOSE, INTERFACED Routine 03/22/2022 5:21 EDT COMPLETE BLOOD COUNT Routine 03/21/2022 5:24 EDT TRIGLYCERIDE Routine 03/21/2022 5:24 EDT PHOSPHORUS Routine 03/21/2022 5:24 EDT MAGNESIUM Routine 03/21/2022 5:24 EDT COMPREHENSIVE METABOLIC PANEL (CMP) Routine 03/21/2022 5:24 EDT POCT GLUCOSE, INTERFACED Routine 03/21/2022 5:14 EDT COMPREHENSIVE METABOLIC PANEL (CMP) STAT 03/20/2022 8:46 EDT POCT GLUCOSE, INTERFACED Routine 03/20/2022 6:14 EDT COMPLETE BLOOD COUNT Routine 03/20/2022 5:35 EDT PHOSPHORUS Routine 03/20/2022 5:35 EDT MAGNESIUM Routine 03/20/2022 5:35 EDT COMPREHENSIVE METABOLIC PANEL (CMP) Routine 03/20/2022 5:35 EDT POCT GLUCOSE, INTERFACED Routine 03/19/2022 6:12 EDT PHOSPHORUS Routine 03/19/2022 5:31 EDT MAGNESIUM Routine 03/19/2022 5:31 EDT COMPREHENSIVE METABOLIC PANEL (CMP) Routine 03/19/2022 5:31 EDT COMPLETE BLOOD COUNT Routine 03/19/2022 5:30 EDT TRIGLYCERIDE Routine 03/18/2022 5:38 EDT PHOSPHORUS Routine 03/18/2022 5:38 EDT MAGNESIUM Routine 03/18/2022 5:38 EDT COMPREHENSIVE METABOLIC PANEL (CMP) Routine 03/18/2022 5:38 EDT COMPLETE BLOOD COUNT Routine 03/18/2022 5:37 EDT POCT GLUCOSE, INTERFACED Routine 03/18/2022 5:36 EDT POCT GLUCOSE, INTERFACED Routine 03/17/2022 7:39 EDT COMPLETE BLOOD COUNT Routine 03/17/2022 6:12 EDT PHOSPHORUS Routine 03/17/2022 6:12 EDT MAGNESIUM Routine 03/17/2022 6:12 EDT COMPREHENSIVE METABOLIC PANEL (CMP) STAT 03/17/2022 6:12 EDT COMPLETE BLOOD COUNT Routine 03/16/2022 11:46 EDT TRIGLYCERIDE Add-On 03/16/2022 8:06 EDT POTASSIUM Routine 03/16/2022 8:06 EDT POCT GLUCOSE, INTERFACED Routine 03/16/2022 7:50 EDT COMPLETE BLOOD COUNT Routine 03/16/2022 6:14 EDT PHOSPHORUS Routine 03/16/2022 6:14 EDT MAGNESIUM Routine 03/16/2022 6:14 EDT COMPREHENSIVE METABOLIC PANEL (CMP) Routine 03/16/2022 6:14 EDT SODIUM Routine 03/16/2022 0:17 EDT C REACTIVE PROTEIN STAT 03/15/2022 20 :12 EDT AMMONIA STAT 03/15/2022 20:12 EDT BASIC METABOLIC PANEL (BMP) STAT 03/15/2022 20:12 EDT SODIUM Routine 03/15/2022 18:36 EDT SODIUM Routine 03/15/2022 13:31 EDT HEPARIN LEVEL - UNFRACTIONATED HEPARIN STAT 03/15/2022 8:59 EDT POCT GLUCOSE, INTERFACED Routine 03/15/2022 7:46 EDT COMPLETE BLOOD COUNT Routine 03/15/2022 7:09 EDT TRIGLYCERIDE Routine 03/15/2022 7:09 EDT PHOSPHORUS Routine 03/15/2022 7:09 EDT MAGNESIUM Routine 03/15/2022 7:09 EDT COMPREHENSIVE METABOLIC PANEL (CMP) Routine 03/15/2022 7:09 EDT SODIUM Routine 03/15/2022 1:59 EDT SODIUM Routine 03/14/2022 22:17 EDT SODIUM Routine 03/14/2022 17:53 EDT SODIUM, URINE RANDOM Routine 03/14/2022 17:40 EDT OSMOLALITY, URINE Routine 03/14/2022 17: 40 EDT EEG Routine 03/14/2022 17:24 EDT OSMOLALITY Add-On 03/14/2022 13:30 EDT SODIUM Routine 03/14/2022 13:30 EDT SODIUM Routine 03/14/2022 9:36 EDT POCT GLUCOSE, INTERFACED Routine 03/14/2022 6:57 EDT COMPLETE BLOOD COUNT Routine 03/14/2022 6:24 EDT PHOSPHORUS Routine 03/14/2022 6:24 EDT MAGNESIUM Routine 03/14/2022 6:24 EDT CK Add-On 03/14/2022 6:24 EDT COMPREHENSIVE METABOLIC PANEL (CMP) Routine 03/14/2022 6:24 EDT POCT GLUCOSE, INTERFACED Routine 03/13/2022 7:59 EDT COMPLETE BLOOD COUNT Routine 03/13/2022 6:44 EDT PHOSPHORUS Routine 03/13/2022 6:44 EDT MAGNESIUM Routine 03/13/2022 6:44 EDT COMPREHENSIVE METABOLIC PANEL (CMP) Routine 03/13/2022 6:44 EDT POCT GLUCOSE, INTERFACED Routine 03/13/2022 6:04 EDT COMPLETE BLOOD COUNT Routine 03/12/2022 6:32 EDT TRIGLYCERIDE Routine 03/12/2022 6:32 EDT PHOSPHORUS Routine 03/12/2022 6:32 EDT MAGNESIUM Routine 03/12/2022 6:32 EDT COMPREHENSIVE METABOLIC PANEL (CMP) Routine 03/12/2022 6:32 EDT COMPLETE BLOOD COUNT Routine 03/11/2022 6:28 EDT VALPROIC ACID, FREE AND TOTAL, S Routine 03/11/2022 6:28 EDT PHOSPHORUS Routine 03/11/2022 6:28 EDT MAGNESIUM Routine 03/11/2022 6:28 EDT COMPREHENSIVE METABOLIC PANEL (CMP) Routine 03/11/2022 6:28 EDT POCT GLUCOSE, INTERFACED Routine 03/11/2022 5:31 EDT COMPLETE BLOOD COUNT Routine 03/10/2022 7:12 EDT PHOSPHORUS Routine 03/10/2022 7:11 EDT MAGNESIUM Routine 03/10/2022 7:11 EDT COMPREHENSIVE METABOLIC PANEL (CMP) Routine 03/10/2022 7:11 EDT POCT GLUCOSE, INTERFACED Routine 03/10/2022 5:31 EDT POCT GLUCOSE, INTERFACED Routine 03/09/2022 22:08 EDT POCT GLUCOSE, INTERFACED Routine 03/09/2022 14:40 EDT COMPLETE BLOOD COUNT Routine 03/09/2022 6:56 EDT TRIGLYCERIDE Routine 03/09/2022 6:56 EDT PHOSPHORUS Routine 03/09/2022 6:56 EDT MAGNESIUM Routine 03/09/2022 6:56 EDT CORTISOL Routine 03/09/2022 6:56 EDT COMPREHENSIVE METABOLIC PANEL (CMP) Routine 03/09/2022 6:56 EDT POCT GLUCOSE, INTERFACED Routine 03/09/2022 6:10 EDT POCT GLUCOSE, INTERFACED Routine 03/08/2022 21:57 EDT MR CERVICAL SPINE W WO CONTRAST STAT 03/08/2022 21:53 EDT MR HEAD W WO CONTRAST STAT 03/08/2022 21:39 EDT LYME AB SCREEN, IGG AND IGM Add-On 03/08/2022 18:04 EDT RHEUMATOID SCREEN/TITRE Add-On 03/08/2022 18:04 EDT HEPATITIS C AB W REFLEX TO HCV RNA BY PCR Routine 03/08/2022 18:04 EDT HIV 1/2 ANTIGEN AND ANTIBODY, 4TH GENERATION Routine 03/08/2022 18:04 EDT C REACTIVE PROTEIN Routine 03/08/2022 18 :04 EDT VITAMIN B12 Add-On 03/08/2022 18:04 EDT ELECTROLYTES Routine 03/08/2022 18:04 EDT SSA/SSB PANEL Routine 03/08/2022 18:03 EDT CALCIUM, IONIZED Routine 03/08/2022 18:0 3 EDT ANCA, IFA Routine 03/08/2022 18:03 EDT ANTI NUCLEAR AB (HERRERA), IFA Routine 03/08/2022 18:03 EDT DRUG SCREEN 12, URINE Routine 03/08/2022 14:51 EDT POCT GLUCOSE, INTERFACED Routine 03/08/2022 14:41 EDT TSH Add-On 03/08/2022 12:45 EDT T4 FREE Add-On 03/08/2022 12:45 EDT ELECTROLYTES Routine 03/08/2022 12:45 EDT CALCIUM, CORRECTED Routine 03/08/2022 6: 58 EDT VITAMIN D (25,[place]) Add-On 03/08/2022 6:5 8 EDT COMPLETE BLOOD COUNT Routine 03/08/2022 6:58 EDT TRIGLYCERIDE Add-On 03/08/2022 6:58 EDT PHOSPHORUS Routine 03/08/2022 6:58 EDT MAGNESIUM Routine 03/08/2022 6:58 EDT COMPREHENSIVE METABOLIC PANEL (CMP) Routine 03/08/2022 6:58 EDT XR ABDOMEN 1 VIEW STAT 03/07/2022 17: 38 EDT MR LUMBAR SPINE W WO CONTRAST STAT 03/07/2022 15:55 EDT ECG REPORT - SCANNED 03/07/2022 13:15 EDT CALCIUM, CORRECTED Add-On 03/07/2022 11 :04 EDT PROCALCITONIN Routine 03/07/2022 11:04 EDT BACTERIAL CULTURE, BLOOD Routine 03/07/2022 10:54 EDT BACTERIAL CULTURE, BLOOD Routine 03/07/2022 10:54 EDT UA SEDIMENT (CULTURE IF POS) STAT 03/07/2022 9:44 EDT UA WITH REFLEX SEDIMENT (CULTURE IF POS) STAT 03/07/2022 9:44 EDT BACTERIAL CULTURE, URINE Today 03/07/2022 9:44 EDT ZZCOVID-19 [facility] (TESTING ONLY) Today 03/07/2022 8:42 EDT COVID-19 TESTING Routine 03/07/2022 8:42 EDT ZZHN INFLUENZA A AND B, RSV PCR STAT Add-on 03/07/2022 8:42 EDT HOLD BLUE TOP STAT 03/07/2022 8:42 EDT TROPONIN I STAT 03/07/2022 8:42 EDT COMPLETE BLOOD COUNT AND DIFFERENTIAL STAT 03/07/2022 8:42 EDT C REACTIVE PROTEIN Add-On 03/07/2022 8: 42 EDT MAGNESIUM STAT 03/07/2022 8:42 EDT CK Add-On 03/07/2022 8:42 EDT ETHANOL, BLOOD STAT 03/07/2022 8:42 EDT COMPREHENSIVE METABOLIC PANEL (CMP) STAT 03/07/2022 8:42 EDT EKG 12-LEAD STAT 03/07/2022 8:34 EDT documented in this encounter Results * ECG REPORT - SCANNED (03/29/2022 14:29 EDT) 03/29/2022 14:2 9 EDT us Scan 2 Post Closer PROCEDURE/MINOR SURGICAL OR DERABLES Final Result * ECG REPORT - SCANNED (03/29/2022 14:29 EDT) 03/29/2022 14:2 9 EDT us Scan 2 Post Closer PROCEDURE/MINOR SURGICAL OR DERABLES Final Result * (ABNORMAL) PHOSPHORUS (03/28/2022 5:37 EDT) Phosphorus 4.6(H) 2.5 - 4.5 mg/dL 03/28/2022 7:30 EDT [facility] Blood VENOUS BLOOD / Unknown Venipuncture / Unknown 03/28/2022 5:37 EDT 03/28/2022 6:40 EDT us Yung Henderson MD CHEMISTRY & BLOOD GAS ORDERAB LES Final Result Performing Organization Address [facility] Co de Phone Number [facility] [address] [place] [address] * (ABNORMAL) MAGNESIUM (03/28/2022 5:37 EDT) Pathologist [facility] Magnesium 1.5(L) 1.7 - 2.8 mg/dL 03/28/2022 7:30 EDT [facility] Blood VENOUS BLOOD / Unknown Venipuncture / Unknown 03/28/2022 5:37 EDT 03/28/2022 6:40 EDT Yung Henderson MD CHEMISTRY & BLOOD GAS ORDERAB LES Final Result Performing Organization Address City/[facility] Co de Phone Number [facility] [address] [place] [address] * (ABNORMAL) COMPLETE BLOOD COUNT (03/28/2022 5:37 EDT) Pathologist [facility] WBC 6.12 4.00 - 12.40 K/cmm 03/28/2022 6:46 [facility] RBC 2.83(L) 3.86 - 5.04 M/cmm 03/28/2022 6:46 [facility] Hemoglobin 9.1(L) 11.6 - 15.2 gm/dL 03/28/2022 6:46 [facility] HCT 27.4(L) 34.9 - 44.4 % 03/28/2022 6:46 [facility] MCV 97 81 - 98 fl 03/28/2022 6:46 [facility] MCH 32.2 26.7 - 33.3 pg 03/28/2022 6:46 [facility] MCHC 33.2 32.1 - 35.9 gm/dL 03/28/2022 6:46 [facility] RDW-CV 12.4 <14.7 % 03/[facility]22 [facility] 44.5 <50.4 fl 03/28/2022 6:46 [facility] PLT 233 141 - 377 K/cmm 03/28/2022 6:46 [facility] MPV 11.3 9.5 - 12.7 fl 03/28/2022 6:46 [facility] Blood VENOUS BLOOD / Unknown Venipuncture / Unknown 03/28/2022 5:37 EDT 03/28/2022 6:40 EDT Yung Henderson MD HEMATOLOGY & PF4 ORDERABLES F inal Result [facility] [address] [place] [address] * (ABNORMAL) COMPREHENSIVE METABOLIC PANEL (CMP) (03/28/2022 5:37 EDT) Sodium 135(L) 136 - 145 mmol/L 03/28/2022 7:30 [facility] Potassium 4.0 3.5 - 5.0 mmol/L 03/28/2022 7:30 [facility] Chloride 103 96 - 110 mmol/L 03/28/2022 7:30 [facility] CO2 Total 26 22 - 32 mmol/L 03/28/2022 7:30 [facility] Glucose 83 70 - 100 mg/dL 03/28/2022 7:30 [facility] BUN 20 10 - 26 mg/dL 03/28/2022 7:30 [facility] Creatinine 0.60 0.52 - 1.04 mg/dL 03/28/2022 7:30 [facility] eGFR 107 >60 mL/min/1.7 3m2 03/28/2022 7:30 [facility] Total Protein 5.7(L) 6.3 - 8.2 g/dL 03/28/2022 7:30 EDT [facility] Albumin 2.9(L) 3.4 - 4.9 g/dL 03/28/2022 7:30 T [facility] Alkaline Phosphatase 188(H) 38 - 126 U/L 03/28/2022 7:30 EDT [facility] AST 129(H) 15 - 46 U/L 03/28/2022 7:30 T [facility] ALT 398(H) <35 U/L 03/28/2022 7:30 [facility] Bilirubin, Total 0.2 <1.4 mg/dL 03/28/20 7:30 [facility] Calcium 8.8 8.5 - 10.5 mg/dL 03/28/2022 7:30 [facility] Albumin/Globulin Ratio 1.0 1.0 - 2.5 03/28/2022 7:30 [facility] Anion Gap 6 5 - 14 03/28/2022 7:30 EDT [facility] Blood VENOUS BLOOD / Unknown Venipuncture / Unknown 03/28/2022 5:37 EDT 03/28/2022 6:40 EDT us Yung Henderson MD CHEMISTRY & BLOOD GAS ORDERAB LES Final Result Performing Organization Address [facility]/ZIP Co de Phone Number [facility] [address] [place] [address] * TRIGLYCERIDE (03/27/2022 6:09 EDT) Triglyceride 87 <=150 mg/dL 03/27/2022 7:09 EDT [facility] Comment:Note that therapeuti c goals will differ between patients based on cardiac risk factors and current medical therapy. Blood VENOUS BLOOD / Unknown Venipuncture / Unknown 03/27/2022 6:09 EDT 03/27/2022 6:39 EDT us Yung Henderson MD CHEMISTRY & BLOOD GAS ORDERAB LES Final Result [facility] [address] [place] [address] * (ABNORMAL) PHOSPHORUS (03/27/2022 6:09 EDT) Pathologist [facility] Phosphorus 4.8(H) 2.5 - 4.5 mg/dL 03/27/2022 7:09 EDT [facility] Blood VENOUS BLOOD / Unknown Venipuncture / Unknown 03/27/2022 6:09 EDT 03/27/2022 6:39 EDT Yung Henderson MD CHEMISTRY & BLOOD GAS ORDERAB LES Final Result Performing Organization Address [facility] Co de Phone Number [facility] [address] [place] [address] * MAGNESIUM (03/27/2022 6:09 EDT) Pathologist [facility] Magnesium 1.8 1.7 - 2.8 mg/dL 03/27/2022 7:09 EDT [facility] Blood VENOUS BLOOD / Unknown Venipuncture / Unknown 03/27/2022 6:09 EDT 03/27/2022 6:39 EDT Yung Henderson MD CHEMISTRY & BLOOD GAS ORDERAB LES Final Result Performing Organization Address [facility] Co de Phone Number [facility] [address] [place] [address] * (ABNORMAL) COMPLETE BLOOD COUNT (03/27/2022 6:09 EDT) Pathologist [facility] WBC 6.50 4.00 - 12.40 K/cmm 03/27/2022 6:46 EDT [facility] RBC 2.87(L) 3.86 - 5.04 M/cmm 03/27/2022 6:46 EDT [facility] Hemoglobin 9.3(L) 11.6 - 15.2 gm/dL 03/27/2022 6:46 EDT [facility] HCT 27.6(L) 34.9 - 44.4 % 03/27/2022 6:46 EDT [facility] MCV 96 81 - 98 fl 03/27/2022 6:46 EDT [facility] MCH 32.4 26.7 - 33.3 pg [facility]22 [facility] M[facility] 33.7 32.1 - 35.9 gm/dL 03/27/2022 6:46 EDT [facility] RDW-CV 12.6 <14.7 % 03/27/2022 6:46 EDT [facility] RDW-SD 44.8 <50.4 fl 03/27/2022 6:46 [facility] PLT 244 141 - 377 K/cmm 03/27/2022 6:46 [facility] MPV 11.0 9.5 - 12.7 fl 03/27/2022 6:46 [facility] Blood VENOUS BLOOD / Unknown Venipuncture / Unknown 03/27/2022 6:09 EDT 03/27/2022 6:39 EDT us Yung Henderson MD HEMATOLOGY & PF4 ORDERABLES F inal Result Performing Organization Address City/State/[facility] Co de Phone Number [facility] [address] [place] [address] * (ABNORMAL) COMPREHENSIVE METABOLIC PANEL (CMP) (03/27/2022 6:09 EDT) Sodium 136 136 - 145 mmol/L 03/27/2022 7:09 [facility] Potassium 4.6 3.5 - 5.0 mmol/L 03/27/2022 7:09 [facility] Chloride 100 96 - 110 mmol/L 03/27/2022 7:09 [facility] CO2 Total 27 22 - 32 mmol/L 03/27/2022 7:09 [facility] Glucose 78 70 - 100 mg/dL 03/27/2022 7:09 [facility] BUN 21 10 - 26 mg/dL 03/27/2022 7:09 [facility] Creatinine 0.57 0.52 - 1.04 mg/dL 03/27/2022 7:09 [facility] eGFR 108 >60 mL/min/1.7 3m2 03/27/2022 7:09 [facility] Total Protein 5.7(L) 6.3 - 8.2 g/dL 03/27/2022 7:09 [facility] Albumin 3.0(L) 3.4 - 4.9 g/dL 03/27/2022 7:09 [facility] Alkaline Phosphatase 187(H) 38 - 126 U/L 03/27/2022 7:09 [facility] AST 207(H) 15 - 46 U/L 03/27/2022 7:09 [facility] ALT 492(H) <35 U/L 03/27/2022 7:09 [facility] Bilirubin, Total 0.3 <1.4 mg/dL 03/27/20 7:09 [facility] Calcium 8.7 8.5 - 10.5 mg/dL 03/27/2022 7:09 [facility] Albumin/Globulin Ratio 1.1 1.0 - 2.5 03/27/2022 7:09 [facility] Anion Gap 9 5 - 14 03/27/2022 7:09 [facility] Blood VENOUS BLOOD / Unknown Venipuncture / Unknown 03/27/2022 6:09 EDT 03/27/2022 6:39 EDT us Yung Henderson MD CHEMISTRY & BLOOD GAS ORDERAB LES Final Result [facility] [address] [place] [address] * POCT GLUCOSE, INTERFACED (03/26/2022 8:24 EDT) Glucose, POC 84 70 - 100 mg/dL 03/26/2022 8:26 [facility] HN LAB POC COMMENT (GLUCOSE) Test Performed in [address] [place] [address] 03/26/2022 8:26 EDT [facility] Blood CAPILLARY BLOOD / Unknown 03/26/2022 8:24 EDT 03/26/2022 8:26 EDT us Jv Kessler MD POINT OF CARE TEST ORDERABLES Final Result Performing Organization Address [facility]/ZIP Co de Phone Number [facility] [address] [place] [address] * (ABNORMAL) PHOSPHORUS (03/26/2022 6:07 EDT) Phosphorus 5.0(H) 2.5 - 4.5 mg/dL 03/26/2022 7:22 EDT [facility] Blood VENOUS BLOOD / Unknown Venipuncture / Unknown 03/26/2022 6:07 EDT 03/26/2022 7:22 EDT us Yung Henderson MD CHEMISTRY & BLOOD GAS ORDERAB LES Final Result Performing Organization Address [facility] Co de Phone Number [facility] [address] [place] [address] * (ABNORMAL) MAGNESIUM (03/26/2022 6:07 EDT) Magnesium 1.5(L) 1.7 - 2.8 mg/dL 03/26/2022 7:22 EDT [facility] Blood VENOUS BLOOD / Unknown Venipuncture / Unknown 03/26/2022 6:07 EDT 03/26/2022 7:22 EDT us Yung Henderson MD CHEMISTRY & BLOOD GAS ORDERAB LES Final Result Performing Organization Address City/[facility]/ZIP Co de Phone Number [facility] [address] [place] [address] * (ABNORMAL) COMPREHENSIVE METABOLIC PANEL (CMP) (03/26/2022 6:07 EDT) Sodium 137 136 - 145 mmol/L 03/26/2022 7:22 EDT [facility] Potassium 4.5 3.5 - 5.0 mmol/L 03/26/2022 7:22 [facility] [facility] Chloride 102 96 - 110 mmol/L 03/26/2022 7:22 [facility] CO2 Total 26 22 - 32 mmol/L 03/26/2022 7:22 [facility] Glucose 85 70 - 100 mg/dL 03/26/2022 7:22 [facility] BUN 20 10 - 26 mg/dL 03/26/2022 7:22 [facility] Creatinine 0.44(L) 0.52 - 1.04 mg/dL 03/26/2022 7:22 [facility] eGFR 115 >60 mL/min/1.7 3m2 03/26/2022 7:22 [facility] Total Protein 5.8(L) 6.3 - 8.2 g/dL 03/26/2022 7:22 [facility] Albumin 3.1(L) 3.4 - 4.9 g/dL 03/26/2022 7:22 [facility] Alkaline Phosphatase 171(H) 38 - 126 U/L 03/26/2022 7:22 [facility] AST 143(H) 15 - 46 U/L 03/26/2022 7:22 [facility] ALT 385(H) <35 U/L 03/26/2022 7:22 [facility] Bilirubin, Total <0.2 <1.4 mg/dL 03/26/20 7:22 [facility] Calcium 8.8 8.5 - 10.5 mg/dL 03/26/2022 7:22 [facility] Albumin/Globulin Ratio 1.1 1.0 - 2.5 03/26/2022 7:22 [facility] Anion Gap 9 5 - 14 03/26/2022 7:22 [facility] Blood VENOUS BLOOD / Unknown Venipuncture / Unknown 03/26/2022 6:07 EDT 03/26/2022 7:22 EDT us Yung Henderson MD CHEMISTRY & BLOOD GAS ORDERAB LES Final Result [facility] [address] [place] [address] * (ABNORMAL) COMPLETE BLOOD COUNT (03/26/2022 6:06 EDT) WBC 7.53 4.00 - 12.40 K/cmm 03/26/2022 6:48 EDT [facility] RBC 2.96(L) 3.86 - 5.04 M/cmm 03/26/2022 6:48 EDT [facility] Hemoglobin 9.6(L) 11.6 - 15.2 gm/dL 03/26/2022 6:48 EDT [facility] HCT 28.7(L) 34.9 - 44.4 % 03/26/2022 6:48 EDT [facility] MCV 97 81 - 98 fl 03/26/2022 6:48 EDT [facility] MCH 32.4 26.7 - 33.3 pg 03/26/2022 6:48 EDT [facility] MCHC 33.4 32.1 - 35.9 gm/dL 03/26/2022 6:48 EDT [facility] RDW-CV 12.5 <14.7 % 03/26/2022 6:48 EDT [facility] RDW-SD 44.3 <50.4 fl 03/26/2022 6:48 EDT [facility] PLT 258 141 - 377 K/cmm 03/26/2022 6:48 EDT [facility] MPV 10.9 9.5 - 12.7 fl 03/26/2022 6:48 EDT [facility] Blood VENOUS BLOOD / Unknown Venipuncture / Unknown 03/26/2022 6:06 EDT 03/26/2022 6:43 EDT us Yung Henderson MD HEMATOLOGY & PF4 ORDERABLES F inal Result [facility] [address] [place] [address] * POCT GLUCOSE, INTERFACED (03/25/2022 6:02 EDT) Glucose, POC 95 70 - 100 mg/dL 03/25/2022 6:03 EDT [facility] HN LAB POC COMMENT (GLUCOSE) Test Performed in 2 [place] 03/25/2022 6:03 EDT [facility] Blood CAPILLARY BLOOD / Unknown 03/25/2022 6:02 EDT 03/25/2022 6:03 EDT us Yung Henderson MD POINT OF CARE TEST ORDERABLES Final Result Performing Organization Address [facility]/ZIP Co de Phone Number [facility] [address] [place] [address] * (ABNORMAL) PHOSPHORUS (03/25/2022 5:54 EDT) Phosphorus 4.8(H) 2.5 - 4.5 mg/dL 03/25/2022 7:35 EDT [facility] Blood VENOUS BLOOD / Unknown Venipuncture / Unknown 03/25/2022 5:54 EDT 03/25/2022 6:49 EDT us Yung Henderson MD CHEMISTRY & BLOOD GAS ORDERAB LES Final Result Performing Organization Address City/[facility]/ZIP Co de Phone Number [facility] [address] [place] [address] * (ABNORMAL) MAGNESIUM (03/25/2022 5:54 EDT) Magnesium 1.6(L) 1.7 - 2.8 mg/dL 03/25/2022 7:35 EDT [facility] Blood VENOUS BLOOD / Unknown Venipuncture / Unknown 03/25/2022 5:54 EDT 03/25/2022 6:49 EDT us Yung Henderson MD CHEMISTRY & BLOOD GAS ORDERAB LES Final Result [facility] [address] [address] * (ABNORMAL) COMPREHENSIVE METABOLIC PANEL (CMP) (03/25/2022 5:54 EDT) Sodium 133(L) 136 - 145 mmol/L 03/25/2022 7:35 [facility] Potassium 4.4 3.5 - 5.0 mmol/L 03/25/2022 7:35 [facility] Chloride 101 96 - 110 mmol/L 03/25/2022 7:35 [facility] CO2 Total 25 22 - 32 mmol/L 03/25/2022 7:35 [facility] Glucose 91 70 - 100 mg/dL 03/25/2022 7:35 [facility] BUN 21 10 - 26 mg/dL 03/25/2022 7:35 [facility] Creatinine 0.37(L) 0.52 - 1.04 mg/dL 03/25/2022 7:35 [facility] eGFR 120 >60 mL/min/1.7 3m2 03/25/2022 7:35 [facility] Total Protein 5.7(L) 6.3 - 8.2 g/dL 03/25/2022 7:35 [facility] Albumin 3.0(L) 3.4 - 4.9 g/dL 03/25/2022 7:35 [facility] Alkaline Phosphatase 141(H) 38 - 126 U/L 03/25/2022 7:35 [facility] AST 107(H) 15 - 46 U/L 03/25/2022 7:35 [facility] ALT 348(H) <35 U/L 03/25/2022 7:35 [facility] Bilirubin, Total 0.2 <1.4 mg/dL 03/25/20 7:35 [facility] Calcium 8.6 8.5 - 10.5 mg/dL 03/25/2022 7:35 [facility] Albumin/Globulin Ratio 1.1 1.0 - 2.5 03/25/2022 7:35 [facility] Anion Gap 7 5 - 14 03/25/2022 7:35 [facility] Blood VENOUS BLOOD / Unknown Venipuncture / Unknown 03/25/2022 5:54 EDT 03/25/2022 6:49 EDT us Yung Henderson MD CHEMISTRY & BLOOD GAS ORDERAB LES Final Result [facility] [address] [place] [address] * (ABNORMAL) COMPLETE BLOOD COUNT (03/25/2022 5:53 EDT) WBC 8.76 4.00 - 12.40 K/cmm 03/25/2022 6:56 [facility] RBC 3.05(L) 3.86 - 5.04 M/cmm 03/25/2022 6:56 [facility] Hemoglobin 9.5(L) 11.6 - 15.2 gm/dL 03/25/2022 6:56 [facility] HCT 29.6(L) 34.9 - 44.4 % 03/25/2022 6:56 [facility] MCV 97 81 - 98 fl 03/25/2022 6:56 [facility] MCH 31.1 26.7 - 33.3 pg 03/25/2022 6:56 [facility] MCHC 32.1 32.1 - 35.9 gm/dL 03/25/2022 6:56 [facility] RDW-CV 12.7 <14.7 % 03/25/2022 6:56 [facility] RDW-SD 44.0 <50.4 fl 03/25/2022 6:56 [facility] PLT 303 141 - 377 K/cmm 03/25/2022 6:56 [facility] MPV 10.9 9.5 - 12.7 fl 03/25/2022 6:56 EDT [facility] Blood VENOUS BLOOD / Unknown Venipuncture / Unknown 03/25/2022 5:53 EDT 03/25/2022 6:49 EDT Yung Henderson MD HEMATOLOGY & PF4 ORDERABLES F inal Result Performing Organization Address [facility]/ZIP Co de Phone Number [facility] [address] [place] [address] * (ABNORMAL) POCT GLUCOSE, INTERFACED (03/24/2022 5:57 EDT) [facility] Glucose, POC 111(H) 70 - 100 mg/dL 03/24/2022 6:12 EDT [facility] HN LAB POC COMMENT (GLUCOSE) Test Performed in [address] [place] [address] 03/24/2022 6:12 EDT [facility] Blood CAPILLARY BLOOD / Unknown 03/24/2022 5:57 EDT 03/24/2022 6:12 EDT Yung Henderson MD POINT OF CARE TEST ORDERABLES Final Result Performing Organization Address [facility] Co de Phone Number [facility] [address] [place] [address] * (ABNORMAL) COMPLETE BLOOD COUNT (03/24/2022 5:40 EDT) [facility] WBC 7.22 4.00 - 12.40 K/cmm 03/24/2022 6:56 EDT [facility] RBC 2.89(L) 3.86 - 5.04 M/cmm 03/24/2022 6:56 [facility] Hemoglobin 9.2(L) 11.6 - 15.2 gm/dL 03/24/2022 6:56 [facility] HCT 28.2(L) 34.9 - 44.4 % 03/24/2022 6:56 [facility] MCV 98 81 - 98 fl 03/24/2022 6:56 [facility] MCH 31.8 26.7 - 33.3 pg 03/24/2022 6:56 EDT [facility] MCHC 32.6 32.1 - 35.9 gm/dL 03/24/2022 6:56 EDT [facility] RDW-CV 12.7 <14.7 % 03/24/2022 6:56 [facility] RDW-SD 45.3 <50.4 fl 03/24/2022 6:56 [facility] PLT 286 141 - 377 K/cmm 03/24/2022 6:56 [facility] MPV 10.8 9.5 - 12.7 fl 03/[facility]22 [facility] BLOOD / Unknown Venipuncture / Unknown 03/24/2022 5:40 EDT 03/24/2022 6:46 EDT us Yung Henderson MD HEMATOLOGY & PF4 ORDERABLES F inal Result Performing Organization Address City/[facility] Co de Phone Number [facility] [address] [place] [address] * TRIGLYCERIDE (03/24/2022 5:39 EDT) Triglyceride 75 <=150 mg/dL 03/24/2022 7:35 EDT [facility] Comment:Note that therapeuti c goals will differ between patients based on cardiac risk factors and current medical therapy. Blood VENOUS BLOOD / Unknown Venipuncture / Unknown 03/24/2022 5:39 EDT 03/24/2022 6:45 EDT us Yung Henderson MD CHEMISTRY & BLOOD GAS ORDERAB LES Final Result Performing Organization Address [facility] Co de Phone Number [facility] [address] [place] [address] * (ABNORMAL) PHOSPHORUS (03/24/2022 5:39 EDT) Phosphorus 4.8(H) 2.5 - 4.5 mg/dL 03/24/2022 7:35 EDT [facility] Blood VENOUS BLOOD / Unknown Venipuncture / Unknown 03/24/2022 5:39 EDT 03/24/2022 6:45 EDT us Yung Henderson MD CHEMISTRY & BLOOD GAS ORDERAB LES Final Result Performing Organization Address [facility] Co de Phone Number [facility] [address] [place] [address] * (ABNORMAL) MAGNESIUM (03/24/2022 5:39 EDT) [facility] Magnesium 1.6(L) 1.7 - 2.8 mg/dL 03/[facility]2022 [facility] VENOUS BLOOD / Unknown Venipuncture / Unknown 03/24/2022 5:39 EDT 03/24/2022 6:45 EDT us Yung Henderson MD CHEMISTRY & BLOOD GAS ORDERAB LES Final Result Performing Organization Address [facility] Co de Phone Number [facility] [address] [place] [address] * (ABNORMAL) COMPREHENSIVE METABOLIC PANEL (CMP) (03/24/2022 5:39 EDT) [facility] Sodium 136 136 - 145 mmol/L 03/24/2022 7:35 [facility] Potassium 4.1 3.5 - 5.0 mmol/L 03/24/2022 7:35 [facility] Chloride 105 96 - 110 mmol/L 03/24/2022 7:35 [facility] CO2 Total 24 22 - 32 mmol/L 03/24/2022 7:35 [facility] Glucose 101(H) 70 - 100 mg/dL 03/24/2022 7:35 [facility] BUN 18 10 - 26 mg/dL 03/24/2022 7:35 [facility] Creatinine 0.43(L) 0.52 - 1.04 mg/dL 03/24/2022 7:35 [facility] eGFR 116 >60 mL/min/1.7 3m2 03/24/2022 7:35 [facility] Total Protein 5.6(L) 6.3 - 8.2 g/dL 03/24/2022 7:35 [facility] Albumin 2.9(L) 3.4 - 4.9 g/dL 03/24/2022 7:35 [facility] Alkaline Phosphatase 142(H) 38 - 126 U/L 03/24/2022 7:35 [facility] AST 171(H) 15 - 46 U/L 03/24/2022 7:35 [facility] ALT 409(H) <35 U/L 03/24/2022 7:35 [facility] Bilirubin, Total <0.2 <1.4 mg/dL 03/24/20 7:35 [facility] Calcium 8.4(L) 8.5 - 10.5 mg/dL 03/24/2022 7:35 [facility] Albumin/Globulin Ratio 1.1 1.0 - 2.5 03/24/2022 7:35 [facility] Anion Gap 7 5 - 14 03/24/2022 7:35 [facility] Blood VENOUS BLOOD / Unknown Venipuncture / Unknown 03/24/2022 5:39 EDT 03/24/2022 6:45 EDT us Yung Henderson MD CHEMISTRY & BLOOD GAS ORDERAB LES Final Result Performing Organization Address City/State/[facility] Co de Phone Number [facility] [address] [place] [address] * (ABNORMAL) POCT GLUCOSE, INTERFACED (03/23/2022 7:56 EDT) Glucose, POC 118(H) 70 - 100 mg/dL 03/23/2022 9:02 EDT [facility] HN LAB POC COMMENT (GLUCOSE) Test Performed in [address] [place] [address] 03/23/2022 [facility] Blood CAPILLARY BLOOD / Unknown 03/23/2022 7:56 EDT 03/23/2022 9:02 EDT us Jona Parkinson MD POINT OF CARE TEST ORDERABLES Final Result [facility] [address] [place] [address] * (ABNORMAL) COMPLETE BLOOD COUNT (03/23/2022 6:00 EDT) WBC 8.33 4.00 - 12.40 K/cmm 03/23/2022 6:54 EDT [facility] RBC 2.89(L) 3.86 - 5.04 M/cmm 03/23/2022 6:54 EDT [facility] Hemoglobin 9.3(L) 11.6 - 15.2 gm/dL 03/23/2022 6:54 T [facility] HCT 28.5(L) 34.9 - 44.4 % 03/23/2022 6:54 EDT [facility] MCV 99(H) 81 - 98 fl 03/23/2022 6:54 EDT [facility] MCH 32.2 26.7 - 33.3 pg 03/23/2022 6:54 EDT [facility] MCHC 32.6 32.1 - 35.9 gm/dL 03/23/2022 6:54 [facility] RDW-CV 12.8 <14.7 % 03/23/2022 6:54 EDT [facility] RDW-SD 46.0 <50.4 fl 03/23/2022 6:54 EDT [facility] PLT 300 141 - 377 K/cmm 03/23/2022 6:54 EDT [facility] MPV 10.8 9.5 - 12.7 fl 03/23/2022 6:54 [facility] Blood VENOUS BLOOD / Unknown Venipuncture / Unknown 03/23/2022 6:00 EDT 03/23/2022 6:44 EDT us Yung Nicholston MD HEMATOLOGY & PF4 ORDERABLES F inal Result Performing Organization Address [facility]/ZIP Co de Phone Number [facility] [address] [place] [address] * (ABNORMAL) PHOSPHORUS (03/23/2022 5:59 EDT) Phosphorus 5.3(H) 2.5 - 4.5 mg/dL 03/23/2022 7:35 EDT [facility] Blood VENOUS BLOOD / Unknown Venipuncture / Unknown 03/23/2022 5:59 EDT 03/23/2022 6:44 EDT us Yung Henderson MD CHEMISTRY & BLOOD GAS ORDERAB LES Final Result Performing Organization Address [facility] Co de Phone Number [facility] [address] [place] [address] * (ABNORMAL) MAGNESIUM (03/23/2022 5:59 EDT) Pathologist [facility] Magnesium 1.4(L) 1.7 - 2.8 mg/dL 03/23/2022 7:35 EDT [facility] Blood VENOUS BLOOD / Unknown Venipuncture / Unknown 03/23/2022 5:59 EDT 03/23/2022 6:44 EDT us Yung Henderson MD CHEMISTRY & BLOOD GAS ORDERAB LES Final Result Performing Organization Address City/[facility]/ZIP Co de Phone Number [facility] [address] [place] [address] * (ABNORMAL) COMPREHENSIVE METABOLIC PANEL (CMP) (03/23/2022 5:59 EDT) Sodium 135(L) 136 - 145 mmol/L 03/23/2022 7:35 EDT [facility] Potassium 4.5 3.5 - 5.0 mmol/L 03/23/2022 7:35 EDT [facility] Chloride 106 96 - 110 mmol/L 03/23/2022 7:35 EDT [facility] CO2 Total 22 22 - 32 mmol/L 03/23/2022 7:35 [facility] Glucose 84 70 - 100 mg/dL 03/23/2022 7:35 [facility] BUN 20 10 - 26 mg/dL 03/23/2022 7:35 [facility] Creatinine 0.45(L) 0.52 - 1.04 mg/dL 03/23/2022 7:35 [facility] eGFR 114 >60 mL/min/1.7 3m2 03/23/2022 7:35 [facility] Total Protein 5.7(L) 6.3 - 8.2 g/dL 03/23/2022 7:35 [facility] Albumin 2.9(L) 3.4 - 4.9 g/dL 03/23/2022 7:35 [facility] Alkaline Phosphatase 147(H) 38 - 126 U/L 03/23/2022 7:35 [facility] AST 109(H) 15 - 46 U/L 03/23/2022 7:35 [facility] ALT 339(H) <35 U/L 03/23/2022 7:35 [facility] Bilirubin, Total <0.2 <1.4 mg/dL 03/23/20 7:35 [facility] Calcium 8.6 8.5 - 10.5 mg/dL 03/23/2022 7:35 [facility] Albumin/Globulin Ratio 1.0 1.0 - 2.5 03/23/2022 7:35 [facility] Anion Gap 7 5 - 14 03/23/2022 7:35 [facility] Blood VENOUS BLOOD / Unknown Venipuncture / Unknown 03/23/2022 5:59 EDT 03/23/2022 6:44 EDT us Yung Henderson MD CHEMISTRY & BLOOD GAS ORDERAB LES Final Result [facility] [address] [place] [address] * POCT GLUCOSE, INTERFACED (03/23/2022 5:17 EDT) Glucose, POC 93 70 - 100 mg/dL 03/23/2022 5:46 EDT [facility] HN LAB POC COMMENT (GLUCOSE) Test Performed in 2 South 03/23/2022 5:46 EDT [facility] Blood CAPILLARY BLOOD / Unknown 03/23/2022 5:17 EDT 03/23/2022 5:46 EDT us Yung Henderson MD POINT OF CARE TEST ORDERABLES Final Result Performing Organization Address [facility]/ZIP Co de Phone Number [facility] [address] [place] [address] * (ABNORMAL) PHOSPHORUS (03/22/2022 5:54 EDT) Phosphorus 4.7(H) 2.5 - 4.5 mg/dL 03/22/2022 7:27 EDT [facility] Blood VENOUS BLOOD / Unknown Venipuncture / Unknown 03/22/2022 5:54 EDT 03/22/2022 6:41 EDT us Yung Henderson MD CHEMISTRY & BLOOD GAS ORDERAB LES Final Result Performing Organization Address City/[facility]/ZIP Co de Phone Number [facility] [address] [place] [address] * MAGNESIUM (03/22/2022 5:54 EDT) Magnesium 1.7 1.7 - 2.8 mg/dL 03/22/2022 7:27 EDT [facility] Blood VENOUS BLOOD / Unknown Venipuncture / Unknown 03/22/2022 5:54 EDT 03/22/2022 6:41 EDT us Yung Henderson MD CHEMISTRY & BLOOD GAS ORDERAB LES Final Result Performing Organization Address City/[facility]/ZIP Co de Phone Number [facility] [address] [place] [address] * (ABNORMAL) COMPLETE BLOOD COUNT (03/22/2022 5:54 EDT) [facility] WBC 8.45 4.00 - 12.40 K/cmm 03/22/2022 6:51 T [facility] RBC 2.96(L) 3.86 - 5.04 M/cmm 03/22/2022 6:51 [facility] Hemoglobin 9.4(L) 11.6 - 15.2 gm/dL 03/22/2022 6:51 [facility] HCT 29.3(L) 34.9 - 44.4 % 03/22/2022 6:51 [facility] MCV 99(H) 81 - 98 fl 03/22/2022 6:51 [facility] MCH 31.8 26.7 - 33.3 pg 03/22/2022 6:51 [facility] MCHC 32.1 32.1 - 35.9 gm/dL 03/22/2022 6:51 [facility] RDW-CV 12.9 <14.7 % 03/22/2022 6:51 [facility] RDW-SD 46.5 <50.4 fl 03/22/2022 6:51 [facility] PLT 305 141 - 377 K/cmm 03/22/2022 6:51 [facility] MPV 10.9 9.5 - 12.7 fl 03/22/2022 6:51 [facility] Blood VENOUS BLOOD / Unknown Venipuncture / Unknown 03/22/2022 5:54 EDT 03/22/2022 6:41 EDT us Yung Henderson MD HEMATOLOGY & PF4 ORDERABLES F inal Result [facility] [address] [place] [address] * (ABNORMAL) COMPREHENSIVE METABOLIC PANEL (CMP) (03/22/2022 5:54 EDT) [facility] Sodium 135(L) 136 - 145 mmol/L 03/22/2022 7:27 [facility] Potassium 4.7 3.5 - 5.0 mmol/L 03/22/2022 7:27 [facility] Chloride 106 96 - 110 mmol/L 03/22/2022 7:27 [facility] CO2 Total 22 22 - 32 mmol/L 03/22/2022 7:27 [facility] Glucose 87 70 - 100 mg/dL 03/22/2022 7:27 [facility] BUN 20 10 - 26 mg/dL 03/22/2022 7:27 [facility] Creatinine 0.44(L) 0.52 - 1.04 mg/dL 03/22/2022 7:27 [facility] eGFR 115 >60 mL/min/1.7 3m2 03/22/2022 7:27 [facility] Total Protein 5.8(L) 6.3 - 8.2 g/dL 03/22/2022 7:27 [facility] Albumin 3.0(L) 3.4 - 4.9 g/dL 03/22/2022 7:27 [facility] Alkaline Phosphatase 156(H) 38 - 126 U/L 03/22/2022 7:27 [facility] AST 163(H) 15 - 46 U/L 03/22/2022 7:27 [facility] ALT 428(H) <35 U/L 03/22/2022 7:27 [facility] Bilirubin, Total <0.2 <1.4 mg/dL 03/22/20 7:27 [facility] Calcium 8.6 8.5 - 10.5 mg/dL 03/22/2022 7:27 [facility] Albumin/Globulin Ratio 1.1 1.0 - 2.5 03/22/2022 7:27 [facility] Anion Gap 7 5 - 14 03/22/2022 7:27 [facility] Blood VENOUS BLOOD / Unknown Venipuncture / Unknown 03/22/2022 5:54 EDT 03/22/2022 6:41 EDT us Yung Henderson MD CHEMISTRY & BLOOD GAS ORDERAB LES Final Result Performing Organization Address [facility]/ZIP Co de Phone Number [facility] [address] [place] [address] * (ABNORMAL) POCT GLUCOSE, INTERFACED (03/22/2022 5:21 EDT) Glucose, POC 164(H) 70 - 100 mg/dL 03/22/2022 5:26 EDT [facility] HN LAB POC COMMENT (GLUCOSE) Test Performed in [address] [place] [address] 03/22/2022 5:26 EDT [facility] Blood CAPILLARY BLOOD / Unknown 03/22/2022 5:21 EDT 03/22/2022 5:26 EDT us Yung Henderson MD POINT OF CARE TEST ORDERABLES Final Result Performing Organization Address [facility] Co de Phone Number [facility] [address] [place] [address] * TRIGLYCERIDE (03/21/2022 5:24 EDT) [facility] Triglyceride 71 <=150 mg/dL 03/21/2022 7:25 EDT [facility] Comment:Note that therapeuti c goals will differ between patients based on cardiac risk factors and current medical therapy. Blood VENOUS BLOOD / Unknown Venipuncture / Unknown 03/21/2022 5:24 EDT 03/21/2022 6:45 EDT us Yung Henderson MD CHEMISTRY & BLOOD GAS ORDERAB LES Final Result Performing Organization Address [facility]/ZIP Co de Phone Number [facility] [address] [place] [phone] * (ABNORMAL) PHOSPHORUS (03/21/2022 5:24 EDT) Phosphorus 5.1(H) 2.5 - 4.5 mg/dL 03/21/2022 7:25 EDT [facility] Blood VENOUS BLOOD / Unknown Venipuncture / Unknown 03/21/2022 5:24 EDT 03/21/2022 6:45 EDT Yung Henderson MD CHEMISTRY & BLOOD GAS ORDERAB LES Final Result Performing Organization Address [facility]/ZIP Co de Phone Number [facility] [address] [place] [address] * (ABNORMAL) MAGNESIUM (03/21/2022 5:24 EDT) Pathologist [facility] Magnesium 1.4(L) 1.7 - 2.8 mg/dL 03/21/2022 7:25 EDT [facility] Blood VENOUS BLOOD / Unknown Venipuncture / Unknown 03/21/2022 5:24 EDT 03/21/2022 6:45 EDT Yung Henderson MD CHEMISTRY & BLOOD GAS ORDERAB LES Final Result Performing Organization Address City/[facility]/ZIP Co de Phone Number [facility] [address] [place] [address] * (ABNORMAL) COMPLETE BLOOD COUNT (03/21/2022 5:24 EDT) Pathologist [facility] WBC 7.31 4.00 - 12.40 K/cmm 03/21/2022 6:59 EDT [facility] RBC 2.88(L) 3.86 - 5.04 M/cmm 03/21/2022 6:59 EDT [facility] Hemoglobin 9.2(L) 11.6 - 15.2 gm/dL 03/21/2022 6:59 EDT [facility] HCT 28.6(L) 34.9 - 44.4 % 03/21/2022 6:59 T [facility] MCV 99(H) 81 - 98 fl 03/21/2022 6:59 EDT [facility] MCH 31.9 26.7 - 33.3 pg 03/21/2022 6:59 EDT [facility] MCHC 32.2 32.1 - 35.9 gm/dL 03/21/2022 6:59 [facility] RDW-CV 13.0 <14.7 % 03/21/2022 6:59 [facility] RDW-SD 47.0 <50.4 fl 03/21/2022 6:59 [facility] PLT 284 141 - 377 K/cmm 03/21/2022 6:59 [facility] MPV 11.1 9.5 - 12.7 fl 03/21/2022 6:59 [facility] Blood VENOUS BLOOD / Unknown Venipuncture / Unknown 03/21/2022 5:24 EDT 03/21/2022 6:45 EDT us Yung Henderson MD HEMATOLOGY & PF4 ORDERABLES F inal Result Performing Organization Address City/State/[facility] Co de Phone Number [facility] [address] [place] [address] * (ABNORMAL) COMPREHENSIVE METABOLIC PANEL (CMP) (03/21/2022 5:24 EDT) Sodium 136 136 - 145 mmol/L 03/21/2022 7:25 [facility] Potassium 4.6 3.5 - 5.0 mmol/L 03/21/2022 7:25 [facility] Chloride 107 96 - 110 mmol/L 03/21/2022 7:25 [facility] CO2 Total 21(L) 22 - 32 mmol/L 03/21/2022 7:25 [facility] Glucose 107(H) 70 - 100 mg/dL 03/21/2022 7:25 [facility] BUN 16 10 - 26 mg/dL 03/21/2022 7:25 [facility] Creatinine 0.44(L) 0.52 - 1.04 mg/dL 03/21/2022 7:25 [facility] eGFR 115 >60 mL/min/1.7 3m2 03/21/2022 7:25 [facility] Total Protein 5.7(L) 6.3 - 8.2 g/dL 03/21/2022 7:25 [facility] Albumin 2.9(L) 3.4 - 4.9 g/dL 03/21/2022 7:25 [facility] Alkaline Phosphatase 150(H) 38 - 126 U/L 03/21/2022 7:25 [facility] AST 135(H) 15 - 46 U/L 03/21/2022 7:25 [facility] ALT 470(H) <35 U/L 03/21/2022 7:25 [facility] Bilirubin, Total <0.2 <1.4 mg/dL 03/21/20 7:25 [facility] Calcium 9.0 8.5 - 10.5 mg/dL 03/21/2022 7:25 [facility] Albumin/Globulin Ratio 1.0 1.0 - 2.5 03/21/2022 7:25 [facility] Anion Gap 8 5 - 14 03/21/2022 7:25 [facility] Blood VENOUS BLOOD / Unknown Venipuncture / Unknown 03/21/2022 5:24 EDT 03/21/2022 6:45 EDT us Yung Henderson MD CHEMISTRY & BLOOD GAS ORDERAB LES Final Result Performing Organization Address City/State/[facility] Co de Phone Number [facility] [address] [place] [address] * (ABNORMAL) POCT GLUCOSE, INTERFACED (03/21/2022 5:14 EDT) Glucose, POC 132(H) 70 - 100 mg/dL 03/21/2022 5:23 EDT [facility] HN LAB POC COMMENT (GLUCOSE) Test Performed in [address] [place] [address] 03/21/2022 5:23 EDT [facility] Blood CAPILLARY BLOOD / Unknown 03/21/2022 5:14 EDT 03/21/2022 5:22 EDT us Yung Henderson MD POINT OF CARE TEST ORDERABLES Final Result [facility] [address] [place] [address] * (ABNORMAL) COMPREHENSIVE METABOLIC PANEL (CMP) (03/20/2022 8:46 EDT) Sodium 134(L) 136 - 145 mmol/L 03/20/2022 9:29 EDT [facility] Potassium 4.8 3.5 - 5.0 mmol/L 03/20/2022 9:29 T [facility] Chloride 107 96 - 110 mmol/L 03/20/2022 9:29 [facility] CO2 Total 17(L) 22 - 32 mmol/L 03/20/2022 9:29 [facility] Glucose 134(H) 70 - 100 mg/dL 03/20/2022 9:29 [facility] BUN 16 10 - 26 mg/dL 03/20/2022 9:29 [facility] Creatinine 0.41(L) 0.52 - 1.04 mg/dL 03/20/2022 9:29 [facility] eGFR 117 >60 mL/min/1.7 3m2 03/20/2022 9:29 [facility] Total Protein 6.0(L) 6.3 - 8.2 g/dL 03/20/2022 9:29 [facility] Albumin 3.1(L) 3.4 - 4.9 g/dL 03/20/2022 9:29 [facility] Alkaline Phosphatase 161(H) 38 - 126 U/L 03/20/2022 9:29 [facility] AST 196(H) 15 - 46 U/L 03/20/2022 9:29 [facility] ALT 604(H) <35 U/L 03/20/2022 9:29 [facility] Bilirubin, Total <0.2 <1.4 mg/dL 03/20/20 9:29 EDT [facility] Calcium 9.0 8.5 - 10.5 mg/dL 03/20/2022 9:29 EDT [facility] Albumin/Globulin Ratio 1.1 1.0 - 2.5 03/20/2022 9:29 EDT [facility] Anion Gap 10 5 - 14 03/20/2022 9:29 EDT [facility] Blood VENOUS BLOOD / Unknown Venipuncture / Unknown 03/20/2022 8:46 EDT 03/20/2022 9:04 EDT Nayely MARINELLIBS CHEMISTRY & BLOOD GAS ORDER [place] Final Result [facility] [address] [place] [address] * (ABNORMAL) POCT GLUCOSE, INTERFACED (03/20/2022 6:14 EDT) Glucose, POC 120(H) 70 - 100 mg/dL 03/20/2022 6:16 EDT [facility] HN LAB POC COMMENT (GLUCOSE) Test Performed in [address] [place] [address] 03/20/2022 6:16 EDT [facility] Blood CAPILLARY BLOOD / Unknown 03/20/2022 6:14 EDT 03/20/2022 6:16 EDT Yung Henderson MD POINT OF CARE TEST ORDERABLES Final Result [facility] [address] [place] [address] * (ABNORMAL) PHOSPHORUS (03/20/2022 5:35 EDT) Phosphorus 5.4(H) 2.5 - 4.5 mg/dL 03/20/2022 7:57 EDT [facility] Blood VENOUS BLOOD / Unknown Venipuncture / Unknown 03/20/2022 5:35 EDT 03/20/2022 6:38 EDT us Yung Henderson MD CHEMISTRY & BLOOD GAS ORDERAB LES Final Result [facility] [address] [place] [address] * MAGNESIUM (03/20/2022 5:35 EDT) [facility] Magnesium 1.7 1.7 - 2.8 mg/dL 03/20/2022 7:57 EDT [facility] Blood VENOUS BLOOD / Unknown Venipuncture / Unknown 03/20/2022 5:35 EDT 03/20/2022 6:38 EDT Yung Henderson MD CHEMISTRY & BLOOD GAS ORDERAB LES Final Result Performing Organization Address City/[facility]/ZIP Co de Phone Number [facility] [address] [place] [address] * (ABNORMAL) COMPLETE BLOOD COUNT (03/20/2022 5:35 EDT) [facility] WBC 5.61 4.00 - 12.40 K/cmm 03/20/2022 6:55 [facility] RBC 2.62(L) 3.86 - 5.04 M/cmm 03/20/2022 6:55 [facility] Hemoglobin 8.6(L) 11.6 - 15.2 gm/dL 03/20/2022 6:55 [facility] HCT 28.3(L) 34.9 - 44.4 % 03/20/2022 6:55 [facility] MCV 108(H) 81 - 98 fl 03/20/2022 6:55 [facility] MCH 32.8 26.7 - 33.3 pg 03/20/2022 6:55 [facility] MCHC 30.4(L) 32.1 - 35.9 gm/dL 03/20/2022 6:55 [facility] RDW-CV 13.2 <14.7 % 03/20/2022 6:55 [facility] RDW-SD 52.1(H) <50.4 fl 03/20/2022 6:55 [facility] PLT 234 141 - 377 K/cmm 03/20/2022 6:55 [facility] MPV 10.9 9.5 - 12.7 fl 03/20/2022 6:55 [facility] Blood VENOUS BLOOD / Unknown Venipuncture / Unknown 03/20/2022 5:35 EDT 03/20/2022 6:38 EDT us Yung Henderson MD HEMATOLOGY & PF4 ORDERABLES F inal Result [facility] [address] [place] [id number] * (ABNORMAL) COMPREHENSIVE METABOLIC PANEL (CMP) (03/20/2022 5:35 EDT) Sodium 133(L) 136 - 145 mmol/L 03/20/2022 8:10 [facility] Potassium 5.7(H) 3.5 - 5.0 mmol/L 03/20/2022 8:10 [facility] Chloride 107 96 - 110 mmol/L 03/20/2022 8:10 [facility] CO2 Total 21(L) 22 - 32 mmol/L 03/20/2022 8:10 [facility] Glucose 501(HH) 70 - 100 mg/dL 03/20/2022 8:10 [facility] BUN 13 10 - 26 mg/dL 03/20/2022 8:10 [facility] Creatinine 0.47(L) 0.52 - 1.04 mg/dL 03/20/2022 8:10 [facility] eGFR 113 >60 mL/min/1.7 3m2 03/20/2022 8:10 [facility] Total Protein 5.2(L) 6.3 - 8.2 g/dL 03/20/2022 8:10 [facility] Albumin 2.7(L) 3.4 - 4.9 g/dL 03/20/2022 8:10 [facility] Alkaline Phosphatase 126 38 - 126 U/L 03/20/2022 8:10 [facility] AST 268(H) 15 - 46 U/L 03/20/2022 8:10 [facility] ALT 561(H) <35 U/L 03/20/2022 8:10 [facility] Bilirubin, Total <0.2 <1.4 mg/dL 03/20/20 8:10 [facility] Calcium 8.9 8.5 - 10.5 mg/dL 03/20/2022 8:10 [facility] Albumin/Globulin Ratio 1.1 1.0 - 2.5 03/20/2022 8:10 [facility] Anion Gap 5 5 - 14 03/20/2022 8:10 [facility] Blood VENOUS BLOOD / Unknown Venipuncture / Unknown 03/20/2022 5:35 EDT 03/20/2022 6:38 EDT Yung Henderson MD CHEMISTRY & BLOOD GAS ORDERAB LES Final Result Performing Organization Address City/[facility]/ZIP Co de Phone Number [facility] [address] [place] [address] * (ABNORMAL) POCT GLUCOSE, INTERFACED (03/19/2022 6:12 EDT) Glucose, POC 173(H) 70 - 100 mg/dL 03/19/2022 6:50 EDT [facility] HN LAB POC COMMENT (GLUCOSE) Test Performed in [address] [place] [address] 03/19/2022 6:50 EDT [facility] Blood CAPILLARY BLOOD / Unknown 03/19/2022 6:12 EDT 03/19/2022 6:50 EDT us Yung Henderson MD POINT OF CARE TEST ORDERABLES Final Result Performing Organization Address City/[facility]/ZIP Co de Phone Number [facility] [address] [place] [address] * PHOSPHORUS (03/19/2022 5:31 EDT) [facility] Phosphorus 4.4 2.5 - 4.5 mg/dL 03/19/2022 6:06 EDT [facility] Blood VENOUS BLOOD / Unknown Venipuncture / Unknown 03/19/2022 5:31 EDT 03/19/2022 5:42 EDT us Yung Henderson MD CHEMISTRY & BLOOD GAS ORDERAB LES Final Result Performing Organization Address [facility]/ZIP Co de Phone Number [facility] [address] [place] [address] * (ABNORMAL) MAGNESIUM (03/19/2022 5:31 EDT) [facility] Magnesium 1.6(L) 1.7 - 2.8 mg/dL 03/19/2022 6:06 EDT [facility] Blood VENOUS BLOOD / Unknown Venipuncture / Unknown 03/19/2022 5:31 EDT 03/19/2022 5:42 EDT us Yung Henderson MD CHEMISTRY & BLOOD GAS ORDERAB LES Final Result Performing Organization Address [facility] Co de Phone Number [facility] [address] [place] [address] * (ABNORMAL) COMPREHENSIVE METABOLIC PANEL (CMP) (03/19/2022 5:31 EDT) [facility] Sodium 135(L) 136 - 145 mmol/L 03/19/2022 6:33 EDT [facility] Potassium 4.6 3.5 - 5.0 mmol/L 03/19/2022 6:33 EDT [facility] Chloride 106 96 - 110 mmol/L 03/19/2022 6:33 EDT [facility] CO2 Total 22 22 - 32 mmol/L 03/19/2022 6:33 EDT [facility] Glucose 116(H) 70 - 100 mg/dL 03/19/2022 6:33 EDT [facility] BUN 17 10 - 26 mg/dL 03/19/2022 6:33 [facility] Creatinine 0.39(L) 0.52 - 1.04 mg/dL 03/19/2022 6:33 [facility] eGFR 118 >60 mL/min/1.7 3m2 03/19/2022 6:33 [facility] Total Protein 5.9(L) 6.3 - 8.2 g/dL 03/19/2022 6:33 [facility] Albumin 3.0(L) 3.4 - 4.9 g/dL 03/19/2022 6:33 [facility] Alkaline Phosphatase 175(H) 38 - 126 U/L 03/19/2022 6:33 [facility] AST 467(H) 15 - 46 U/L 03/19/2022 6:33 [facility] ALT 857(H) <35 U/L 03/19/2022 6:33 [facility] Bilirubin, Total <0.2 <1.4 mg/dL 03/19/20 6:33 [facility] Calcium 8.7 8.5 - 10.5 mg/dL 03/19/2022 6:33 [facility] Albumin/Globulin Ratio 1.0 1.0 - 2.5 03/19/2022 6:33 [facility] Anion Gap 7 5 - 14 03/19/2022 6:33 [facility] Blood VENOUS BLOOD / Unknown Venipuncture / Unknown 03/19/2022 5:31 EDT 03/19/2022 5:42 EDT us Yung Henderson MD CHEMISTRY & BLOOD GAS ORDERAB LES Final Result [facility] [address] [place] [address] * (ABNORMAL) COMPLETE BLOOD COUNT (03/19/2022 5:30 EDT) WBC 7.40 4.00 - 12.40 K/cmm 03/19/2022 5:45 [facility] RBC 3.03(L) 3.86 - 5.04 M/cmm 03/19/2022 5:45 [facility] Hemoglobin 9.7(L) 11.6 - 15.2 gm/dL 03/19/2022 5:45 [facility] HCT 29.9(L) 34.9 - 44.4 % 03/19/2022 5:45 [facility] MCV 99(H) 81 - 98 fl 03/19/2022 5:45 [facility] MCH 32.0 26.7 - 33.3 pg 03/19/2022 5:45 [facility] MCHC 32.4 32.1 - 35.9 gm/dL 03/19/2022 5:45 [facility] RDW-CV 13.2 <14.7 % 03/19/2022 5:45 [facility] RDW-SD 47.5 <50.4 fl 03/19/2022 5:45 [facility] PLT 277 141 - 377 K/cmm 03/19/2022 5:45 [facility] MPV 10.4 9.5 - 12.7 fl 03/19/2022 5:45 [facility] Blood VENOUS BLOOD / Unknown Venipuncture / Unknown 03/19/2022 5:30 EDT 03/19/2022 5:42 EDT us Yung Henderson MD HEMATOLOGY & PF4 ORDERABLES F inal Result [facility] [address] [place] [address] * TRIGLYCERIDE (03/18/2022 5:38 EDT) Triglyceride 94 <=150 mg/dL 03/18/2022 7:39 [facility] Comment:Note that therapeuti c goals will differ between patients based on cardiac risk factors and current medical therapy. Blood VENOUS BLOOD / Unknown Venipuncture / Unknown 03/18/2022 5:38 EDT 03/18/2022 6:44 EDT us Yung Henderson MD CHEMISTRY & BLOOD GAS ORDERAB LES Final Result Performing Organization Address [facility]/ZIP Co de Phone Number [facility] [address] [place] [address] * (ABNORMAL) PHOSPHORUS (03/18/2022 5:38 EDT) Phosphorus 5.0(H) 2.5 - 4.5 mg/dL 03/18/2022 7:39 EDT [facility] Blood VENOUS BLOOD / Unknown Venipuncture / Unknown 03/18/2022 5:38 EDT 03/18/2022 6:44 EDT us Yung Henderson MD CHEMISTRY & BLOOD GAS ORDERAB LES Final Result Performing Organization Address [facility] Co de Phone Number [facility] [address] [place] [address] * (ABNORMAL) MAGNESIUM (03/18/2022 5:38 EDT) Magnesium 1.4(L) 1.7 - 2.8 mg/dL 03/18/2022 7:39 EDT [facility] Blood VENOUS BLOOD / Unknown Venipuncture / Unknown 03/18/2022 5:38 EDT 03/18/2022 6:44 EDT us Yung Henderson MD CHEMISTRY & BLOOD GAS ORDERAB LES Final Result Performing Organization Address [facility]/ZIP Co de Phone Number [facility] [address] [place] [address] * (ABNORMAL) COMPREHENSIVE METABOLIC PANEL (CMP) (03/18/2022 5:38 EDT) Sodium 134(L) 136 - 145 mmol/L 03/18/2022 7:52 EDT [facility] Potassium 4.8 3.5 - 5.0 mmol/L 03/18/2022 7:52 [facility] Chloride 103 96 - 110 mmol/L 03/18/2022 7:52 [facility] CO2 Total 23 22 - 32 mmol/L 03/18/2022 7:52 [facility] Glucose 112(H) 70 - 100 mg/dL 03/18/2022 7:52 [facility] BUN 16 10 - 26 mg/dL 03/18/2022 7:52 [facility] Creatinine 0.41(L) 0.52 - 1.04 mg/dL 03/18/2022 7:52 [facility] eGFR 117 >60 mL/min/1.7 3m2 03/18/2022 7:52 [facility] Total Protein 6.0(L) 6.3 - 8.2 g/dL 03/18/2022 7:52 [facility] Albumin 3.0(L) 3.4 - 4.9 g/dL 03/18/2022 7:52 [facility] Alkaline Phosphatase 180(H) 38 - 126 U/L 03/18/2022 7:52 [facility] AST 547(H) 15 - 46 U/L 03/18/2022 7:52 [facility] ALT 819(H) <35 U/L 03/18/2022 7:52 [facility] Bilirubin, Total <0.2 <1.4 mg/dL 03/18/20 7:52 [facility] Calcium 8.6 8.5 - 10.5 mg/dL 03/18/2022 7:52 [facility] Albumin/Globulin Ratio 1.0 1.0 - 2.5 03/18/2022 7:52 [facility] Anion Gap 8 5 - 14 03/18/2022 7:52 [facility] Blood VENOUS BLOOD / Unknown Venipuncture / Unknown 03/18/2022 5:38 EDT 03/18/2022 6:44 EDT Yung Henderson MD CHEMISTRY & BLOOD GAS ORDERAB LES Final Result [facility] [address] [place] [address] * (ABNORMAL) COMPLETE BLOOD COUNT (03/18/2022 5:37 EDT) WBC 6.68 4.00 - 12.40 K/cmm 03/18/2022 6:47 EDT [facility] RBC 2.98(L) 3.86 - 5.04 M/cmm 03/18/2022 6:47 EDT [facility] Hemoglobin 10.0(L) 11.6 - 15.2 gm/dL 03/18/2022 6:47 EDT [facility] HCT 29.6(L) 34.9 - 44.4 % 03/18/2022 6:47 EDT [facility] MCV 99(H) 81 - 98 fl 03/18/2022 6:47 EDT [facility] MCH 33.6(H) 26.7 - 33.3 pg 03/18/2022 6:47 EDT [facility] MCHC 33.8 32.1 - 35.9 gm/dL 03/18/2022 6:47 EDT [facility] RDW-CV 13.3 <14.7 % 03/18/2022 6:47 EDT [facility] RDW-SD 48.9 <50.4 fl 03/18/2022 6:47 EDT [facility] PLT 248 141 - 377 K/cmm 03/18/2022 6:47 EDT [facility] MPV 11.0 9.5 - 12.7 fl 03/18/2022 6:47 EDT [facility] Blood VENOUS BLOOD / Unknown Venipuncture / Unknown 03/18/2022 5:37 EDT 03/18/2022 6:44 EDT us Yung Henderson MD HEMATOLOGY & PF4 ORDERABLES F inal Result [facility] [address] [place] [address] * (ABNORMAL) POCT GLUCOSE, INTERFACED (03/18/2022 5:36 EDT) Glucose, POC 118(H) 70 - 100 mg/dL 03/18/2022 5:44 EDT [facility] HN LAB POC COMMENT (GLUCOSE) Test Performed in [address] [place] 03/18/2022 5:44 EDT [facility] Blood CAPILLARY BLOOD / Unknown 03/18/2022 5:36 EDT 03/18/2022 5:44 EDT us Yung Henderson MD POINT OF CARE TEST ORDERABLES Final Result Performing Organization Address City/[facility]/ZIP Co de Phone Number [facility] [address] [place] [address] * (ABNORMAL) POCT GLUCOSE, INTERFACED (03/17/2022 7:39 EDT) Glucose, POC 162(H) 70 - 100 mg/dL 03/17/2022 7:41 EDT [facility] HN LAB POC COMMENT (GLUCOSE) Test Performed in [address] [place] 03/17/2022 7:41 EDT [facility] Blood CAPILLARY BLOOD / Unknown 03/17/2022 7:39 EDT 03/17/2022 7:41 EDT us Yung Henderson MD POINT OF CARE TEST ORDERABLES Final Result [facility] [address] [place] [address] * (ABNORMAL) PHOSPHORUS (03/17/2022 6:12 EDT) Phosphorus 5.3(H) 2.5 - 4.5 mg/dL 03/17/2022 7:10 EDT [facility] Blood VENOUS BLOOD / Unknown Venipuncture / Unknown 03/17/2022 6:12 EDT 03/17/2022 6:41 EDT us Yung Henderson MD CHEMISTRY & BLOOD GAS ORDERAB LES Final Result Performing Organization Address City/[facility]/ZIP Co de Phone Number [facility] [address] [place] [address] * (ABNORMAL) MAGNESIUM (03/17/2022 6:12 EDT) Pathologist [facility] Magnesium 1.5(L) 1.7 - 2.8 mg/dL 03/17/2022 7:10 EDT [facility] Blood VENOUS BLOOD / Unknown Venipuncture / Unknown 03/17/2022 6:12 EDT 03/17/2022 6:41 EDT us Yung Henderson MD CHEMISTRY & BLOOD GAS ORDERAB LES Final Result Performing Organization Address [facility]/ZIP Co de Phone Number [facility] [address] [place] [address] * (ABNORMAL) COMPLETE BLOOD COUNT (03/17/2022 6:12 EDT) [facility] WBC 6.24 4.00 - 12.40 K/cmm 03/17/2022 6:48 [facility] RBC 3.20(L) 3.86 - 5.04 M/cmm 03/17/2022 6:48 [facility] Hemoglobin 10.4(L) 11.6 - 15.2 gm/dL 03/17/2022 6:48 [facility] HCT 31.3(L) 34.9 - 44.4 % 03/17/2022 6:48 [facility] MCV 98 81 - 98 fl 03/17/2022 6:48 [facility] MCH 32.5 26.7 - 33.3 pg 03/17/2022 6:48 [facility] MCHC 33.2 32.1 - 35.9 gm/dL 03/17/2022 6:48 [facility] RDW-CV 13.2 <14.7 % 03/17/2022 6:48 [facility] RDW-SD 47.3 <50.4 fl 03/17/2022 6:48 EDT [facility] PLT 235 141 - 377 K/cmm 03/17/2022 6:48 [facility] MPV 10.9 9.5 - 12.7 fl 03/17/2022 6:48 [facility] Blood VENOUS BLOOD / Unknown Venipuncture / Unknown 03/17/2022 6:12 EDT 03/17/2022 6:41 EDT us Yung Henderson MD HEMATOLOGY & PF4 ORDERABLES F inal Result [facility] [address] [place] [address] * (ABNORMAL) COMPREHENSIVE METABOLIC PANEL (CMP) (03/17/2022 6:12 EDT) Sodium 135(L) 136 - 145 mmol/L 03/17/2022 7:10 [facility] Potassium 5.0 3.5 - 5.0 mmol/L 03/17/2022 7:10 [facility] Chloride 102 96 - 110 mmol/L 03/17/2022 7:10 [facility] CO2 Total 24 22 - 32 mmol/L 03/17/2022 7:10 [facility] Glucose 99 70 - 100 mg/dL 03/17/2022 7:10 [facility] BUN 15 10 - 26 mg/dL 03/17/2022 7:10 [facility] Creatinine 0.40(L) 0.52 - 1.04 mg/dL 03/17/2022 7:10 [facility] eGFR 118 >60 mL/min/1.7 3m2 03/17/2022 7:10 [facility] Total Protein 6.3 6.3 - 8.2 g/dL 03/17/2022 7:10 [facility] Albumin 3.3(L) 3.4 - 4.9 g/dL 03/17/2022 7:10 [facility] Alkaline Phosphatase 174(H) 38 - 126 U/L 03/17/2022 7:10 [facility] AST 514(H) 15 - 46 U/L 03/17/2022 7:10 [facility] ALT 665(H) <35 U/L 03/17/2022 7:10 [facility] Bilirubin, Total <0.2 <1.4 mg/dL 03/17/20 7:10 [facility] Calcium 8.9 8.5 - 10.5 mg/dL 03/17/2022 7:10 [facility] Albumin/Globulin Ratio 1.1 1.0 - 2.5 03/17/2022 7:10 [facility] Anion Gap 9 5 - 14 03/17/2022 7:10 [facility] Blood VENOUS BLOOD / Unknown Venipuncture / Unknown 03/17/2022 6:12 EDT 03/17/2022 6:41 EDT us Yung Henderson MD CHEMISTRY & BLOOD GAS ORDERAB LES Final Result Performing Organization Address City/State/[facility] Co de Phone Number [facility] [address] [place] [address] * (ABNORMAL) COMPLETE BLOOD COUNT (03/16/2022 11:46 EDT) WBC 5.28 4.00 - 12.40 K/cmm 03/16/2022 12:24 [facility] RBC 3.00(L) 3.86 - 5.04 M/cmm 03/16/2022 12:24 [facility] Hemoglobin 10.0(L) 11.6 - 15.2 gm/dL 03/16/2022 12:24 [facility] HCT 29.3(L) 34.9 - 44.4 % 03/16/2022 12:24 [facility] MCV 98 81 - 98 fl 03/16/2022 12:24 [facility] MCH 33.3 26.7 - 33.3 pg 03/16/2022 12:24 EDT [facility] MCHC 34.1 32.1 - 35.9 gm/dL 03/16/2022 12:24 EDT [facility] RDW-CV 13.4 <14.7 % 03/16/2022 12:24 EDT [facility] RDW-SD 48.3 <50.4 fl 03/16/2022 12:24 EDT [facility] PLT 200 141 - 377 K/cmm 03/16/2022 12:24 EDT [facility] MPV 11.2 9.5 - 12.7 fl 03/16/2022 12:24 EDT [facility] Blood BLOOD SAMPLE TAKEN FROM CENTRAL LINE / Unknown Venipuncture / Unknown 03/16/2022 11:46 EDT 03/16/2022 12:00 EDT us Jv Kesslre MD HEMATOLOGY & PF4 ORDERABLES F inal Result Performing Organization Address City/[facility]/ZIP Co de Phone Number [facility] [address] [place] [address] * TRIGLYCERIDE (03/16/2022 8:06 EDT) Pathologist [facility] Triglyceride 117 <=150 mg/dL 03/16/2022 12:02 EDT [facility] Comment:Note that therapeuti c goals will differ between patients based on cardiac risk factors and current medical therapy. Blood VENOUS BLOOD / Unknown PICC Line Draw / Unknown 03/16/2022 8:06 EDT 03/16/2022 8:12 EDT us Jv Kessler MD CHEMISTRY & BLOOD GAS ORDERAB LES Final Result Performing Organization Address [facility]/ZIP Co de Phone Number [facility] [address] [place] [address] * POTASSIUM (03/16/2022 8:06 EDT) Potassium 4.8 3.5 - 5.0 mmol/L 03/16/2022 8:33 EDT [facility] Blood VENOUS BLOOD / Unknown PICC Line Draw / Unknown 03/16/2022 8:06 EDT 03/16/2022 8:12 EDT Jv Kessler MD CHEMISTRY & BLOOD GAS ORDERAB LES Final Result Performing Organization Address [facility] Co de Phone Number [facility] [address] [place] [phone] * (ABNORMAL) POCT GLUCOSE, INTERFACED (03/16/2022 7:50 EDT) [facility] Glucose, POC 104(H) 70 - 100 mg/dL 03/16/2022 8:04 EDT [facility] HN LAB POC COMMENT (GLUCOSE) Test Performed in [address] [place] [address] 03/16/2022 8:04 EDT [facility] Blood CAPILLARY BLOOD / Unknown 03/16/2022 7:50 EDT 03/16/2022 8:04 EDT Yung Henderson MD POINT OF CARE TEST ORDERABLES Final Result Performing Organization Address [facility] Phone Number [facility] [address] [place] [address] * (ABNORMAL) PHOSPHORUS (03/16/2022 6:14 EDT) [facility] Phosphorus 5.6(H) 2.5 - 4.5 mg/dL 03/16/2022 7:24 EDT [facility] Comment:Moderate hemolysis i dentified, interpret with caution as results may be affected due to hemolysis. Blood VENOUS BLOOD / Unknown Venipuncture / Unknown 03/16/2022 6:14 EDT 03/16/2022 6:46 EDT us Yung Henderson MD CHEMISTRY & BLOOD GAS ORDERAB LES Final Result Performing Organization Address [facility] Co de Phone Number [facility] [address] [place] [phone] * (ABNORMAL) MAGNESIUM (03/16/2022 6:14 EDT) Pathologist [facility] Magnesium 1.6(L) 1.7 - 2.8 mg/dL 03/[facility]22 [facility]:Moderate hemolysis i dentified, interpret with caution as results may be affected due to hemolysis. Blood VENOUS BLOOD / Unknown Venipuncture / Unknown 03/16/2022 6:14 EDT 03/16/2022 6:46 EDT us Yung Henderson MD CHEMISTRY & BLOOD GAS ORDERAB LES Final Result [facility] [address] [place] [address] * (ABNORMAL) COMPLETE BLOOD COUNT (03/16/2022 6:14 EDT) [facility] WBC 5.92 4.00 - 12.40 K/cmm 03/16/2022 6:54 [facility] RBC 3.16(L) 3.86 - 5.04 M/cmm 03/16/2022 6:54 [facility] Hemoglobin 10.3(L) 11.6 - 15.2 gm/dL 03/16/2022 6:54 [facility] HCT 30.8(L) 34.9 - 44.4 % 03/16/2022 6:54 [facility] MCV 98 81 - 98 fl 03/16/2022 6:54 [facility] MCH 32.6 26.7 - 33.3 pg 03/16/2022 6:54 [facility] MCHC 33.4 32.1 - 35.9 gm/dL 03/16/2022 6:54 [facility] RDW-CV 13.3 <14.7 % 03/16/2022 6:54 [facility] RDW-SD 47.9 <50.4 fl 03/16/2022 6:54 [facility] PLT 222 141 - 377 K/cmm 03/16/2022 6:54 [facility] MPV 11.2 9.5 - 12.7 fl 03/16/2022 6:54 [facility] Blood VENOUS BLOOD / Unknown Venipuncture / Unknown 03/16/2022 6:14 EDT 03/16/2022 6:47 EDT us Yung Henderson MD HEMATOLOGY & PF4 ORDERABLES F inal Result [facility] [address] [place] [address] * (ABNORMAL) COMPREHENSIVE METABOLIC PANEL (CMP) (03/16/2022 6:14 EDT) Sodium 130(L) 136 - 145 mmol/L 03/16/2022 7:24 [facility] Potassium 6.0(H) 3.5 - 5.0 mmol/L 03/16/2022 7:24 [facility] Comment:Moderate hemolysis i dentified, interpret with caution as hemolysis will elevate potassium result. Chloride 102 96 - 110 mmol/L 03/16/2022 7:24 [facility] CO2 Total 20(L) 22 - 32 mmol/L 03/16/2022 7:24 [facility] Glucose 106(H) 70 - 100 mg/dL 03/16/2022 7:24 [facility] BUN 14 10 - 26 mg/dL 03/16/2022 7:24 [facility] Comment:Moderate hemolysis i dentified, interpret with caution as results may be affected due to hemolysis. Creatinine 0.39(L) 0.52 - 1.04 mg/dL 03/16/2022 7:24 [facility] eGFR 118 >60 mL/min/1.7 3m2 03/16/2022 7:24 [facility] Total Protein 6.2(L) 6.3 - 8.2 g/dL 03/16/2022 7:24 [facility] Comment:Moderate hemolysis i dentified, interpret with caution as results may be affected due to hemolysis. Albumin 3.0(L) 3.4 - 4.9 g/dL 03/16/2022 7:24 EDT [facility] Comment:Moderate hemolysis i dentified, interpret with caution as results may be affected due to hemolysis. Alkaline Phosphatase 129(H) 38 - 126 U/L 03/16/2022 7:24 T [facility] Comment:Moderate hemolysis i dentified. Hemolysis will decrease ALKP result. Suggest re-evaluation if clinically indicated AST 406(H) 15 - 46 U/L 03/16/2022 7:24 EDT [facility] Comment:Moderate hemolysis i dentified, interpret with caution as results may be affected due to hemolysis. ALT 476(H) <35 U/L 03/16/2022 7:24 EDT [facility] Bilirubin, Total 0.4 <1.4 mg/dL 03/16/20 7:24 [facility] Comment:Moderate hemolysis i dentified, interpret with caution as results may be affected due to hemolysis. Calcium 8.5 8.5 - 10.5 mg/dL 03/16/2022 7:24 EDT [facility] Albumin/Globulin Ratio 0.9(L) 1.0 - 2.5 03/16/2022 7:24 T [facility] Anion Gap 8 5 - 14 03/16/2022 7:24 EDT [facility] Blood VENOUS BLOOD / Unknown Venipuncture / Unknown 03/16/2022 6:14 EDT 03/16/2022 6:46 EDT us Yung Henderson MD CHEMISTRY & BLOOD GAS ORDERAB LES Final Result [facility] [address] [place] [address] * (ABNORMAL) SODIUM (03/16/2022 0:17 EDT) Sodium 128(L) 136 - 145 mmol/L 03/16/2022 0:48 EDT [facility] Blood VENOUS BLOOD / Unknown Venipuncture / Unknown 03/16/2022 0:17 EDT 03/16/2022 0:39 EDT us Liss Quigley DO CHEMISTRY & BLOOD GAS ORDER [place] Final Result Performing Organization Address [facility]/ZIP Co de Phone Number [facility] [address] [place] [address] * C REACTIVE PROTEIN (03/15/2022 20:12 EDT) C-Reactive Protein 9.1 <10.0 mg/L 03/15/2022 20:37 EDT [facility] Blood VENOUS BLOOD / Unknown Venipuncture / Unknown 03/15/2022 20:12 EDT 03/15/2022 20:17 EDT us Liss Quigley DO CHEMISTRY & BLOOD GAS ORDER [place] Final Result Performing Organization Address [facility] de Phone Number [facility] [address] [place] [address] * AMMONIA (03/15/2022 20:12 EDT) Ammonia <9 <34 umol/L 03/15/2022 20:38 EDT [facility] Blood VENOUS BLOOD / Unknown Venipuncture / Unknown 03/15/2022 20:12 EDT 03/15/2022 20:17 EDT us Liss Quigley DO CHEMISTRY & BLOOD GAS ORDER [place] Final Result Performing Organization Address [facility] de Phone Number [facility] [address] [place] [address] * (ABNORMAL) BASIC METABOLIC PANEL (BMP) (03/15/2022 20:12 EDT) Sodium 131(L) 136 - 145 mmol/L 03/15/2022 20:38 EDT [facility] Potassium 4.8 3.5 - 5.0 mmol/L 03/15/2022 20:38 EDT [facility] Chloride 102 96 - 110 mmol/L 03/15/2022 20:38 EDT [facility] CO2 Total 21(L) 22 - 32 mmol/L 03/15/2022 20:38 EDT [facility] Anion Gap 8 5 - 14 [facility] Glucose 104(H) 70 - 100 mg/dL 03/15/2022 20:38 [facility] Calcium 8.4(L) 8.5 - 10.5 mg/dL 03/15/2022 20:38 [facility] BUN 13 10 - 26 mg/dL 03/15/2022 20:38 [facility] Creatinine 0.40(L) 0.52 - 1.04 mg/dL 03/15/2022 20:38 [facility] eGFR 118 >60 mL/min/1.73 m2 03/[facility]22 [facility]EN[facility] BLOOD / Unknown Venipuncture / Unknown 03/15/2022 20:12 EDT 03/15/2022 20:17 EDT us Liss Quigley DO CHEMISTRY & BLOOD GAS ORDER [place] Final Result Performing Organization Address City/[facility]/ZIP Co de Phone Number [facility] [address] [place] [address] * (ABNORMAL) SODIUM (03/15/2022 18:36 EDT) Sodium 116(LL) 136 - 145 mmol/L 03/15/2022 18:59 EDT [facility] Blood VENOUS BLOOD / Unknown Venipuncture / Unknown 03/15/2022 18:36 EDT 03/15/2022 18:40 EDT us Jv Kessler MD CHEMISTRY & BLOOD GAS ORDERAB LES Final Result Performing Organization Address City/[facility]/ZIP Co de Phone Number [facility] [address] [place] [address] * (ABNORMAL) SODIUM (03/15/2022 13:31 EDT) Sodium 130(L) 136 - 145 mmol/L 03/15/2022 13:58 EDT [facility] Blood VENOUS BLOOD / Unknown PICC Line Draw / Unknown 03/15/2022 13:31 EDT 03/15/2022 13:43 EDT us Jv Kessler MD CHEMISTRY & BLOOD GAS ORDERAB LES Final Result Performing Organization Address [facility]/ZIP Co de Phone Number [facility] [address] [place] [address] * HEPARIN LEVEL - UNFRACTIONATED HEPARIN (03/15/2022 8:59 EDT) Pathologist [facility] Heparin Level-UFH 0.16 Therapeutic Range: 0.30 - 0.70 IU/mL 03/15/2022 9:39 EDT [facility] Comment:(Range) Below Therap eutic Range Blood VENOUS BLOOD / Unknown Venipuncture / Unknown 03/15/2022 8:59 EDT 03/15/2022 9:04 EDT us Jv Kessler MD HEMATOLOGY & PF4 ORDERABLES F inal Result Performing Organization Address City/[facility]/ZIP Co de Phone Number [facility] [address] [place] [address] * (ABNORMAL) POCT GLUCOSE, INTERFACED (03/15/2022 7:46 EDT) Pathologist [facility] Glucose, POC 125(H) 70 - 100 mg/dL 03/15/2022 7:54 EDT [facility] HN LAB POC COMMENT (GLUCOSE) Test Performed in [address] [place] [address] 03/15/2022 7:54 EDT [facility] Blood CAPILLARY BLOOD / Unknown 03/15/2022 7:46 EDT 03/15/2022 7:54 EDT Yung Henderson MD POINT OF CARE TEST ORDERABLES Final Result Performing Organization Address City/[facility]/ZIP Co de Phone Number [facility] [address] [place] [address] * TRIGLYCERIDE (03/15/2022 7:09 EDT) Pathologist [facility] Triglyceride 136 <=150 mg/dL 03/15/2022 7:31 EDT [facility] Comment:Note that therapeuti c goals will differ between patients based on cardiac risk factors and current medical therapy. Blood VENOUS BLOOD / Unknown Venipuncture / Unknown 03/15/2022 7:09 EDT 03/15/2022 7:14 EDT us Yung Henderson MD CHEMISTRY & BLOOD GAS ORDERAB LES Final Result Performing Organization Address [facility] Co de Phone Number [facility] [address] [place] [address] * (ABNORMAL) PHOSPHORUS (03/15/2022 7:09 EDT) Phosphorus 4.6(H) 2.5 - 4.5 mg/dL 03/15/2022 7:31 EDT [facility] Blood VENOUS BLOOD / Unknown Venipuncture / Unknown 03/15/2022 7:09 EDT 03/15/2022 7:14 EDT us Yung Henderson MD CHEMISTRY & BLOOD GAS ORDERAB LES Final Result Performing Organization Address [facility] Phone Number [facility] [address] [place] [address] * MAGNESIUM (03/15/2022 7:09 EDT) Magnesium 2.1 1.7 - 2.8 mg/dL 03/15/2022 7:31 EDT [facility] Blood VENOUS BLOOD / Unknown Venipuncture / Unknown 03/15/2022 7:09 EDT 03/15/2022 7:14 EDT us Yung Henderson MD CHEMISTRY & BLOOD GAS ORDERAB LES Final Result Performing Organization Address [facility] de Phone Number [facility] [address] [place] [address] * (ABNORMAL) COMPLETE BLOOD COUNT (03/15/2022 7:09 EDT) WBC 4.99 4.00 - 12.40 K/cmm 03/15/2022 7:20 [facility] RBC 2.91(L) 3.86 - 5.04 M/cmm 03/15/2022 7:20 [facility] Hemoglobin 9.8(L) 11.6 - 15.2 gm/dL 03/15/2022 7:20 [facility] HCT 27.8(L) 34.9 - 44.4 % 03/15/2022 7:20 [facility] MCV 96 81 - 98 fl 03/15/2022 7:20 [facility] MCH 33.7(H) 26.7 - 33.3 pg 03/15/2022 7:20 [facility] MCHC 35.3 32.1 - 35.9 gm/dL 03/15/2022 7:20 [facility] RDW-CV 13.1 <14.7 % 03/15/2022 7:20 [facility] RDW-SD 45.9 <50.4 fl 03/15/2022 7:20 [facility] PLT 164 141 - 377 K/cmm 03/15/2022 7:20 [facility] MPV 10.8 9.5 - 12.7 fl 03/15/2022 7:20 [facility] Blood VENOUS BLOOD / Unknown Venipuncture / Unknown 03/15/2022 7:09 EDT 03/15/2022 7:13 EDT us Yung Henderson MD HEMATOLOGY & PF4 ORDERABLES F inal Result [facility] [address] [place] [address] * (ABNORMAL) COMPREHENSIVE METABOLIC PANEL (CMP) (03/15/2022 7:09 EDT) Sodium 126(L) 136 - 145 mmol/L 03/15/2022 7:31 [facility] Potassium 4.9 3.5 - 5.0 mmol/L 03/15/2022 7:31 [facility] Chloride 104 96 - 110 mmol/L 03/15/2022 7:31 [facility] CO2 Total 17(L) 22 - 32 mmol/L 03/15/2022 7:31 [facility] Glucose 107(H) 70 - 100 mg/dL 03/15/2022 7:31 [facility] BUN 14 10 - 26 mg/dL 03/15/2022 7:31 [facility] Creatinine 0.38(L) 0.52 - 1.04 mg/dL 03/15/2022 7:31 [facility] eGFR 119 >60 mL/min/1.7 3m2 03/15/2022 7:31 [facility] Total Protein 5.5(L) 6.3 - 8.2 g/dL 03/15/2022 7:31 [facility] Albumin 2.8(L) 3.4 - 4.9 g/dL 03/15/2022 7:31 [facility] Alkaline Phosphatase 124 38 - 126 U/L 03/15/2022 7:31 [facility] AST 351(H) 15 - 46 U/L 03/15/2022 7:31 [facility] ALT 311(H) <35 U/L 03/15/2022 7:31 [facility] Bilirubin, Total <0.2 <1.4 mg/dL 03/15/20 7:31 [facility] Calcium 8.2(L) 8.5 - 10.5 mg/dL 03/15/2022 7:31 [facility] Albumin/Globulin Ratio 1.0 1.0 - 2.5 03/15/2022 7:31 [facility] Anion Gap 5 5 - 14 03/15/2022 7:31 [facility] Blood VENOUS BLOOD / Unknown Venipuncture / Unknown 03/15/2022 7:09 EDT 03/15/2022 7:14 EDT us Yung Henderson MD CHEMISTRY & BLOOD GAS ORDERAB LES Final Result Performing Organization Address [facility] Co de Phone Number [facility] [address] [place] [address] * (ABNORMAL) SODIUM (03/15/2022 1:59 EDT) Sodium 128(L) 136 - 145 mmol/L 03/15/2022 2:11 EDT [facility] Blood VENOUS BLOOD / Unknown Venipuncture / Unknown 03/15/2022 1:59 EDT 03/15/2022 2:03 EDT us Jv Kessler MD CHEMISTRY & BLOOD GAS ORDERAB LES Final Result Performing Organization Address [facility] de Phone Number [facility] [address] [place] [address] * (ABNORMAL) SODIUM (03/14/2022 22:17 EDT) Sodium 126(L) 136 - 145 mmol/L 03/14/2022 22:58 EDT [facility] Blood VENOUS BLOOD / Unknown Venipuncture / Unknown 03/14/2022 22:17 EDT 03/14/2022 22:21 EDT us Jv Kessler MD CHEMISTRY & BLOOD GAS ORDERAB LES Final Result Performing Organization Address [facility] Co de Phone Number [facility] [address] [place] [address] * (ABNORMAL) SODIUM (03/14/2022 17:53 EDT) Sodium 122(LL) 136 - 145 mmol/L 03/14/2022 19:11 EDT [facility] Blood VENOUS BLOOD / Unknown Venipuncture / Unknown 03/14/2022 17:53 EDT 03/14/2022 17:59 EDT us Jv Kessler MD CHEMISTRY & BLOOD GAS ORDERAB LES Final Result Performing Organization Address [facility] Co de Phone Number [facility] [address] [place] [address] * SODIUM, URINE RANDOM (03/14/2022 17:40 EDT) Sodium, Urine 83.0 See Note mmol/L 03/14/2022 19:32 EDT [facility] Comment: NOTE: Reference range has not been established for sodium concentration in random urine specimens. Urine URINE / Unknown Urine Collect / Unknown 03/14/2022 17:40 EDT 03/14/2022 17:44 EDT us Jv Kessler MD URINALYSIS ORDERABLES Final R esult Performing Organization Address [facility] Co de Phone Number [facility] [address] [place] [address] * OSMOLALITY, URINE (03/14/2022 17:40 EDT) Osmolality, Urine 298 150-1,150 mOsm/kg 03/14/2022 20:00 EDT [facility] Urine URINE / Unknown Urine Collect / Unknown 03/14/2022 17:40 EDT 03/14/2022 17:44 EDT us Jv Kessler MD URINALYSIS ORDERABLES Final R esult Performing Organization Address [facility] Co de Phone Number [facility] [address] [place] [address] * EEG (03/14/2022 17:24 EDT) Narrative [facility] - 03/14/2022 17:24 EDT Brayan Polk MD ? 03/14/2022 17:31 [facility] Neurophysiology lab Electroencephalogram report Patient: Ynes White : 1970 ?? Date of service: 03/14/2022 Referring Physician: Dr Kessler ? 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 Medications: Lacosamide, pregabalin, lorazepam Technical Description: Standard EEG: An in-laboratory digital EEG is performed utilizing silver-silver chloride electrodes placed according to the International 10-20 system of electrode placement. ??CPZ serves as the recording reference electrode. The following additional electrodes are also placed: ECG electrodes , anterior temporal electrodes ?? The study begins at 1637 until 1702 with a total study duration of 25 minutes. During this study the following states were recorded: wake, drowsy Subject factors: Encephalopathic, not interactive Previous EEG Study? Yes Findings: The background cerebral activity with the patient encephalopathic and poorly attentive is continuous. No clear PDR is present. The normal anterior/posterior gradient is attenuated. There is intermittent right hemispheric slowing predominantly represented by moderate amplitude polymorphic delta activity. There is also continuous severe left hemispheric slowing predominated by 7-8 Hz activity, with frequent overriding polymorphic delta waves. Hyperventilation is not performed due to patient factors. ??Photic stimulation with 10 second trains of stimulation by 10 second intervals without stimulation is performed at flash frequencies at intervals between 1 to 21 Hz. No abnormal responses are recorded. No sleep state changes are noted. Single lead EKG reveals a regular rhythm with some PVCs. Impression: Abnormal EEG due to moderate diffuse and additional severe left hemispheric focal slowing. Clinical Correlation: The above findings are consistent with a diffuse encephalopathy on top of known prior left hemispheric stroke. No seizures or interictal discharges are present. The patient is not in subclinical status epilepticus. Brayan Polk MD us Jv Kessler MD NEUROLOGY ORDERABLES Final Re sult [facility] * (ABNORMAL) OSMOLALITY (03/14/2022 13:30 EDT) Osmolality, Serum 261(L) 275 - 295 mOsm/kg 03/14/2022 17:30 EDT [facility] Blood VENOUS BLOOD / Unknown Venipuncture / Unknown 03/14/2022 13:30 EDT 03/14/2022 13:39 EDT us Jv Kessler MD CHEMISTRY & BLOOD GAS ORDERAB LES Final Result Performing Organization Address [facility]/ZIP Co de Phone Number [facility] [address] [place] [address] * (ABNORMAL) SODIUM (03/14/2022 13:30 EDT) Sodium 121(LL) 136 - 145 mmol/L 03/14/2022 15:05 EDT [facility] Blood VENOUS BLOOD / Unknown Venipuncture / Unknown 03/14/2022 13:30 EDT 03/14/2022 13:39 EDT Jv Kessler MD CHEMISTRY & BLOOD GAS ORDERAB LES Final Result Performing Organization Address [facility]/ZIP Co de Phone Number [facility] [address] [place] [address] * (ABNORMAL) SODIUM (03/14/2022 9:36 EDT) Sodium 123(LL) 136 - 145 mmol/L 03/14/2022 10:48 EDT [facility] Blood VENOUS BLOOD / Unknown Venipuncture / Unknown 03/14/2022 9:36 EDT 03/14/2022 9:41 EDT Jv Kessler MD CHEMISTRY & BLOOD GAS ORDERAB LES Final Result Performing Organization Address [facility] Co de Phone Number [facility] [address] [place] [address] * (ABNORMAL) POCT GLUCOSE, INTERFACED (03/14/2022 6:57 EDT) Glucose, POC 102(H) 70 - 100 mg/dL 03/14/2022 6:59 EDT [facility] HN LAB POC COMMENT (GLUCOSE) Test Performed in [address] [place] [address] 03/14/2022 6:59 EDT [facility] Blood CAPILLARY BLOOD / Unknown 03/14/2022 6:57 EDT 03/14/2022 6:59 EDT us Yung Henderson MD POINT OF CARE TEST ORDERABLES Final Result Performing Organization Address [facility]/ZIP Co de Phone Number [facility] [address] [place] [address] * (ABNORMAL) CK (03/14/2022 6:24 EDT) CK 26(L) 30 - 135 U/L 03/14/2022 8:29 EDT [facility] Blood VENOUS BLOOD / Unknown Venipuncture / Unknown 03/14/2022 6:24 EDT 03/14/2022 7:16 EDT vJ Kessler MD CHEMISTRY & BLOOD GAS ORDERAB LES Final Result Performing Organization Address [facility] Co de Phone Number [facility] [address] [place] [address] * PHOSPHORUS (03/14/2022 6:24 EDT) Phosphorus 4.4 2.5 - 4.5 mg/dL 03/14/2022 7:40 EDT [facility] Blood VENOUS BLOOD / Unknown Venipuncture / Unknown 03/14/2022 6:24 EDT 03/14/2022 7:16 EDT Yung Henderson MD CHEMISTRY & BLOOD GAS ORDERAB LES Final Result Performing Organization Address [facility] Co de Phone Number [facility] [address] [place] [address] * (ABNORMAL) MAGNESIUM (03/14/2022 6:24 EDT) Magnesium 1.6(L) 1.7 - 2.8 mg/dL 03/14/2022 7:40 EDT [facility] Blood VENOUS BLOOD / Unknown Venipuncture / Unknown 03/14/2022 6:24 EDT 03/14/2022 7:16 EDT Yung Henderson MD CHEMISTRY & BLOOD GAS ORDERAB LES Final Result Performing Organization Address City/[facility]/ZIP Co de Phone Number [facility] [address] [place] [address] * (ABNORMAL) COMPLETE BLOOD COUNT (03/14/2022 6:24 EDT) WBC 4.56 4.00 - 12.40 K/cmm 03/14/2022 7:29 [facility] RBC 2.97(L) 3.86 - 5.04 M/cmm 03/14/2022 7:29 [facility] Hemoglobin 9.9(L) 11.6 - 15.2 gm/dL 03/14/2022 7:29 [facility] HCT 28.1(L) 34.9 - 44.4 % 03/14/2022 7:29 [facility] MCV 95 81 - 98 fl 03/14/2022 7:29 [facility] MCH 33.3 26.7 - 33.3 pg 03/14/2022 7:29 [facility] MCHC 35.2 32.1 - 35.9 gm/dL 03/14/2022 7:29 [facility] RDW-CV 12.9 <14.7 % 03/14/2022 7:29 [facility] RDW-SD 44.8 <50.4 fl 03/14/2022 7:29 [facility] PLT 164 141 - 377 K/cmm 03/14/2022 7:29 [facility] MPV 11.0 9.5 - 12.7 fl 03/14/2022 7:29 [facility] Blood VENOUS BLOOD / Unknown Venipuncture / Unknown 03/14/2022 6:24 EDT 03/14/2022 7:15 EDT us Yung Henderson MD HEMATOLOGY & PF4 ORDERABLES F inal Result [facility] [address] [place] [address] * (ABNORMAL) COMPREHENSIVE METABOLIC PANEL (CMP) (03/14/2022 6:24 EDT) Sodium 121(LL) 136 - 145 mmol/L 03/14/2022 8:26 [facility] Potassium 4.8 3.5 - 5.0 mmol/L 03/14/2022 8:26 [facility] Chloride 95(L) 96 - 110 mmol/L 03/14/2022 8:26 [facility] CO2 Total 20(L) 22 - 32 mmol/L 03/14/2022 8:26 [facility] Glucose 104(H) 70 - 100 mg/dL 03/14/2022 8:26 [facility] BUN 15 10 - 26 mg/dL 03/14/2022 8:26 [facility] Creatinine 0.40(L) 0.52 - 1.04 mg/dL 03/14/2022 8:26 [facility] eGFR 118 >60 mL/min/1.7 3m2 03/14/2022 8:26 [facility] Total Protein 5.6(L) 6.3 - 8.2 g/dL 03/14/2022 8:26 [facility] Albumin 2.9(L) 3.4 - 4.9 g/dL 03/14/2022 8:26 [facility] Alkaline Phosphatase 124 38 - 126 U/L 03/14/2022 8:26 [facility] AST 145(H) 15 - 46 U/L 03/14/2022 8:26 [facility] ALT 152(H) <35 U/L 03/14/2022 8:26 [facility] Bilirubin, Total <0.2 <1.4 mg/dL 03/14/20 8:26 [facility] Calcium 8.5 8.5 - 10.5 mg/dL 03/14/2022 8:26 [facility] Albumin/Globulin Ratio 1.1 1.0 - 2.5 03/14/2022 8:26 [facility] Anion Gap 6 5 - 14 03/14/2022 8:26 EDT [facility] Blood VENOUS BLOOD / Unknown Venipuncture / Unknown 03/14/2022 6:24 EDT 03/14/2022 7:16 EDT us Yung Henderson MD CHEMISTRY & BLOOD GAS ORDERAB LES Final Result Performing Organization Address [facility]/ZIP Co de Phone Number [facility] [address] [place] [address] * (ABNORMAL) POCT GLUCOSE, INTERFACED (03/13/2022 7:59 EDT) Glucose, POC 107(H) 70 - 100 mg/dL 03/13/2022 8:34 EDT [facility] HN LAB POC COMMENT (GLUCOSE) Test Performed in [address] [place] [address] 03/13/2022 8:34 EDT [facility] Blood CAPILLARY BLOOD / Unknown 03/13/2022 7:59 EDT 03/13/2022 8:34 EDT us Yung Henderson MD POINT OF CARE TEST ORDERABLES Final Result Performing Organization Address [facility] Co de Phone Number [facility] [address] [place], [place] [id number] * (ABNORMAL) PHOSPHORUS (03/13/2022 6:44 EDT) Phosphorus 4.6(H) 2.5 - 4.5 mg/dL 03/13/2022 7:37 EDT [facility] Blood VENOUS BLOOD / Unknown Venipuncture / Unknown 03/13/2022 6:44 EDT 03/13/2022 7:06 EDT us Yung Henderson MD CHEMISTRY & BLOOD GAS ORDERAB LES Final Result Performing Organization Address [facility]/ZIP Co de Phone Number [facility] [address] [place] [address] * MAGNESIUM (03/13/2022 6:44 EDT) Magnesium 1.7 1.7 - 2.8 mg/dL 03/13/2022 7:37 [facility] Blood VENOUS BLOOD / Unknown Venipuncture / Unknown 03/13/2022 6:44 EDT 03/13/2022 7:06 EDT us Yung Henderson MD CHEMISTRY & BLOOD GAS ORDERAB LES Final Result [facility] [address] [place] [address] * (ABNORMAL) COMPLETE BLOOD COUNT (03/13/2022 6:44 EDT) WBC 3.44(L) 4.00 - 12.40 K/cmm 03/13/2022 7:17 [facility] RBC 2.75(L) 3.86 - 5.04 M/cmm 03/13/2022 7:17 [facility] Hemoglobin 9.0(L) 11.6 - 15.2 gm/dL 03/13/2022 7:17 [facility] HCT 26.5(L) 34.9 - 44.4 % 03/13/2022 7:17 [facility] MCV 96 81 - 98 fl 03/13/2022 7:17 [facility] MCH 32.7 26.7 - 33.3 pg 03/13/2022 7:17 [facility] MCHC 34.0 32.1 - 35.9 gm/dL 03/13/2022 7:17 [facility] RDW-CV 13.2 <14.7 % 03/13/2022 7:17 [facility] RDW-SD 45.7 <50.4 fl 03/13/2022 7:17 [facility] PLT 143 141 - 377 K/cmm 03/13/2022 7:17 [facility] MPV 10.5 9.5 - 12.7 fl 03/13/2022 7:17 [facility] Blood VENOUS BLOOD / Unknown Venipuncture / Unknown 03/13/2022 6:44 EDT 03/13/2022 7:06 EDT us Yung Henderson MD HEMATOLOGY & PF4 ORDERABLES F inal Result [facility] [address] [place] [address] * (ABNORMAL) COMPREHENSIVE METABOLIC PANEL (CMP) (03/13/2022 6:44 EDT) Sodium 131(L) 136 - 145 mmol/L 03/13/2022 7:37 [facility] Potassium 4.5 3.5 - 5.0 mmol/L 03/13/2022 7:37 [facility] Chloride 103 96 - 110 mmol/L 03/13/2022 7:37 [facility] CO2 Total 21(L) 22 - 32 mmol/L 03/13/2022 7:37 [facility] Glucose 104(H) 70 - 100 mg/dL 03/13/2022 7:37 [facility] BUN 13 10 - 26 mg/dL 03/13/2022 7:37 [facility] Creatinine 0.46(L) 0.52 - 1.04 mg/dL 03/13/2022 7:37 [facility] eGFR 114 >60 mL/min/1.7 3m2 03/13/2022 7:37 [facility] Total Protein 5.1(L) 6.3 - 8.2 g/dL 03/13/2022 7:37 [facility] Albumin 2.5(L) 3.4 - 4.9 g/dL 03/13/2022 7:37 [facility] Alkaline Phosphatase 116 38 - 126 U/L 03/13/2022 7:37 [facility] AST 151(H) 15 - 46 U/L 03/13/2022 7:37 [facility] ALT 125(H) <35 U/L 03/13/2022 7:37 [facility] Bilirubin, Total <0.2 <1.4 mg/dL 03/13/20 7:37 EDT [facility] Calcium 8.0(L) 8.5 - 10.5 mg/dL 03/13/2022 7:37 EDT [facility] Albumin/Globulin Ratio 1.0 1.0 - 2.5 03/13/2022 7:37 EDT [facility] Anion Gap 7 5 - 14 03/13/2022 7:37 EDT [facility] Blood VENOUS BLOOD / Unknown Venipuncture / Unknown 03/13/2022 6:44 EDT 03/13/2022 7:06 EDT Yung Henderson MD CHEMISTRY & BLOOD GAS ORDERAB LES Final Result Performing Organization Address [facility]/ZIP Co de Phone Number [facility] [address] [place] [address] * (ABNORMAL) POCT GLUCOSE, INTERFACED (03/13/2022 6:04 EDT) Glucose, POC 102(H) 70 - 100 mg/dL 03/13/2022 6:08 EDT [facility] HN LAB POC COMMENT (GLUCOSE) Test Performed in [address] [place] [address] 03/13/2022 6:08 EDT [facility] Blood CAPILLARY BLOOD / Unknown 03/13/2022 6:04 EDT 03/13/2022 6:08 EDT Yung Henderson MD POINT OF CARE TEST ORDERABLES Final Result Performing Organization Address City/[facility]/ZIP Co de Phone Number [facility] [address] [place] [address] * TRIGLYCERIDE (03/12/2022 6:32 EDT) Triglyceride 146 <=150 mg/dL 03/12/2022 7:10 EDT [facility] Comment:Note that therapeuti c goals will differ between patients based on cardiac risk factors and current medical therapy. Blood VENOUS BLOOD / Unknown Venipuncture / Unknown 03/12/2022 6:32 EDT 03/12/2022 6:40 EDT us Yung Henderson MD CHEMISTRY & BLOOD GAS ORDERAB LES Final Result Performing Organization Address [facility] Co de Phone Number [facility] [address] [place] [address] * PHOSPHORUS (03/12/2022 6:32 EDT) Phosphorus 4.0 2.5 - 4.5 mg/dL 03/12/2022 7:10 EDT [facility] Blood VENOUS BLOOD / Unknown Venipuncture / Unknown 03/12/2022 6:32 EDT 03/12/2022 6:40 EDT us Yung Henderson MD CHEMISTRY & BLOOD GAS ORDERAB LES Final Result Performing Organization Address [facility] Phone [facility] [address] [place] [address] * MAGNESIUM (03/12/2022 6:32 EDT) Magnesium 1.8 1.7 - 2.8 mg/dL 03/12/2022 7:10 EDT [facility] Blood VENOUS BLOOD / Unknown Venipuncture / Unknown 03/12/2022 6:32 EDT 03/12/2022 6:40 EDT us Yung Henderson MD CHEMISTRY & BLOOD GAS ORDERAB LES Final Result Performing Organization Address [facility] Co de Phone Number [facility] [address] [place] [address] * (ABNORMAL) COMPLETE BLOOD COUNT (03/12/2022 6:32 EDT) WBC 3.27(L) 4.00 - 12.40 K/cmm 03/12/2022 6:48 EDT [facility] RBC 2.73(L) 3.86 - 5.04 M/cmm 03/12/2022 6:48 EDT [facility] Hemoglobin 9.0(L) 11.6 - 15.2 gm/dL 03/12/2022 6:48 EDT [facility] HCT 26.7(L) 34.9 - 44.4 % 03/12/2022 6:48 EDT [facility] MCV 98 81 - 98 fl 03/12/2022 6:48 EDT [facility] MCH 33.0 26.7 - 33.3 pg 03/12/2022 6:48 EDT [facility] MCHC 33.7 32.1 - 35.9 gm/dL 03/12/2022 6:48 T [facility] RDW-CV 13.2 <14.7 % 03/12/2022 6:48 [facility] RDW-SD 46.0 <50.4 fl 03/12/2022 6:48 [facility] PLT 144 141 - 377 K/cmm 03/12/2022 6:48 [facility] MPV 9.8 9.5 - 12.7 fl 03/12/2022 6:48 [facility] Blood VENOUS BLOOD / Unknown Venipuncture / Unknown 03/12/2022 6:32 EDT 03/12/2022 6:40 EDT us Yung Henderson MD HEMATOLOGY & PF4 ORDERABLES F inal Result Performing Organization Address City/State/[facility] Co de Phone Number [facility] [address] [place] [address] * (ABNORMAL) COMPREHENSIVE METABOLIC PANEL (CMP) (03/12/2022 6:32 EDT) Sodium 134(L) 136 - 145 mmol/L 03/12/2022 7:10 EDT [facility] Potassium 4.4 3.5 - 5.0 mmol/L 03/12/2022 7:10 [facility] Chloride 108 96 - 110 mmol/L 03/12/2022 7:10 [facility] CO2 Total 21(L) 22 - 32 mmol/L 03/12/2022 7:10 [facility] Glucose 99 70 - 100 mg/dL 03/12/2022 7:10 [facility] BUN 11 10 - 26 mg/dL 03/12/2022 7:10 [facility] Creatinine 0.45(L) 0.52 - 1.04 mg/dL 03/12/2022 7:10 [facility] eGFR 114 >60 mL/min/1.7 3m2 03/12/2022 7:10 [facility] Total Protein 4.8(L) 6.3 - 8.2 g/dL 03/12/2022 7:10 [facility] Albumin 2.3(L) 3.4 - 4.9 g/dL 03/12/2022 7:10 [facility] Alkaline Phosphatase 114 38 - 126 U/L 03/12/2022 7:10 [facility] AST 145(H) 15 - 46 U/L 03/12/2022 7:10 [facility] ALT 85(H) <35 U/L 03/12/2022 7:10 [facility] Bilirubin, Total <0.2 <1.4 mg/dL 03/12/20 7:10 [facility] Calcium 8.0(L) 8.5 - 10.5 mg/dL 03/12/2022 7:10 [facility] Albumin/Globulin Ratio 0.9(L) 1.0 - 2.5 03/12/2022 7:10 [facility] Anion Gap 5 5 - 14 03/12/2022 7:10 [facility] Blood VENOUS BLOOD / Unknown Venipuncture / Unknown 03/12/2022 6:32 EDT 03/12/2022 6:40 EDT us Yung Henderson MD CHEMISTRY & BLOOD GAS ORDERAB LES Final Result [facility] [address] [place] [address] * PHOSPHORUS (03/11/2022 6:28 EDT) Pathologist [facility] Phosphorus 4.0 2.5 - 4.5 mg/dL 03/11/2022 7:32 EDT [facility] Blood VENOUS BLOOD / Unknown Venipuncture / Unknown 03/11/2022 6:28 EDT 03/11/2022 6:52 EDT Yung Henderson MD CHEMISTRY & BLOOD GAS ORDERAB LES Final Result Performing Organization Address [facility] Co de Phone Number [facility] [address] [place] [address] * MAGNESIUM (03/11/2022 6:28 EDT) [facility] Magnesium 1.7 1.7 - 2.8 mg/dL 03/11/2022 7:32 EDT [facility] Blood VENOUS BLOOD / Unknown Venipuncture / Unknown 03/11/2022 6:28 EDT 03/11/2022 6:52 EDT us Yung Henderson MD CHEMISTRY & BLOOD GAS ORDERAB LES Final Result Performing Organization Address [facility] Phone Number [facility] [address] [place] [address] * (ABNORMAL) COMPLETE BLOOD COUNT (03/11/2022 6:28 EDT) [facility] WBC 3.08(L) 4.00 - 12.40 K/cmm 03/11/2022 6:58 EDT [facility] RBC 2.73(L) 3.86 - 5.04 M/cmm 03/11/2022 6:58 EDT [facility] Hemoglobin 9.1(L) 11.6 - 15.2 gm/dL 03/11/2022 6:58 EDT [facility] HCT 27.0(L) 34.9 - 44.4 % 03/[facility]22 [facility] 99(H) 81 - 98 fl 03/11/2022 6:58 EDT [facility] MCH 33.3 26.7 - 33.3 pg 03/11/2022 6:58 EDT [facility] MCHC 33.7 32.1 - 35.9 gm/dL 03/11/2022 6:58 [facility] RDW-CV 13.1 <14.7 % 03/11/2022 6:58 [facility] RDW-SD 46.9 <50.4 fl 03/11/2022 6:58 [facility] PLT 144 141 - 377 K/cmm 03/11/2022 6:58 [facility] MPV 10.3 9.5 - 12.7 fl 03/11/2022 6:58 [facility] Blood VENOUS BLOOD / Unknown Venipuncture / Unknown 03/11/2022 6:28 EDT 03/11/2022 6:51 EDT Yung Henderson MD HEMATOLOGY & PF4 ORDERABLES F inal Result [facility] [address] [place] [address] * (ABNORMAL) COMPREHENSIVE METABOLIC PANEL (CMP) (03/11/2022 6:28 EDT) Sodium 134(L) 136 - 145 mmol/L 03/11/2022 7:56 [facility] Potassium 4.3 3.5 - 5.0 mmol/L 03/11/2022 7:56 [facility] Chloride 107 96 - 110 mmol/L 03/11/2022 7:56 [facility] CO2 Total 22 22 - 32 mmol/L 03/11/2022 7:56 [facility] Glucose 99 70 - 100 mg/dL 03/11/2022 7:56 [facility] BUN 11 10 - 26 mg/dL 03/11/2022 7:56 [facility] Creatinine 0.45(L) 0.52 - 1.04 mg/dL 03/11/2022 7:56 [facility] eGFR 114 >60 mL/min/1.7 3m2 03/11/2022 7:56 [facility] Total Protein 4.7(L) 6.3 - 8.2 g/dL 03/11/2022 7:56 [facility] Albumin 2.2(L) 3.4 - 4.9 g/dL 03/11/2022 7:56 [facility] Alkaline Phosphatase 107 38 - 126 U/L 03/11/2022 7:56 [facility] AST 84(H) 15 - 46 U/L 03/11/2022 7:56 [facility] ALT 43(H) <35 U/L 03/11/2022 7:56 [facility] Bilirubin, Total <0.2 <1.4 mg/dL 03/11/20 7:56 [facility] Calcium 7.9(L) 8.5 - 10.5 mg/dL 03/11/2022 7:56 [facility] Albumin/Globulin Ratio 0.9(L) 1.0 - 2.5 03/11/2022 7:56 [facility] Anion Gap 5 5 - 14 03/11/2022 7:56 [facility] Blood VENOUS BLOOD / Unknown Venipuncture / Unknown 03/11/2022 6:28 EDT 03/11/2022 6:52 EDT us Yung Henderson MD CHEMISTRY & BLOOD GAS ORDERAB LES Final Result [facility] [address] [place] [address] * VALPROIC ACID, FREE AND TOTAL, S (03/11/2022 6:28 EDT) Valproic Acid Total, Serum 63 50 - 125 mcg/mL 03/13/2022 15:22 EDT [facility] Comment: Test Performed by: [address] [id number] [employer]: Kain Shay M.D. Ph.D.; CLIA# [id number] Valproic Acid Free 13 5 - 25 mcg/mL 03/13/2022 15:22 EDT [facility] Blood VENOUS BLOOD / Unknown Venipuncture / Unknown 03/11/2022 6:28 EDT 03/11/2022 6:52 EDT Yung Henderson MD CHEMISTRY & BLOOD GAS ORDERAB LES Final Result [facility] [address] [place] [address] * (ABNORMAL) POCT GLUCOSE, INTERFACED (03/11/2022 5:31 EDT) [facility] Glucose, POC 102(H) 70 - 100 mg/dL 03/11/2022 6:07 EDT [facility] HN LAB POC COMMENT (GLUCOSE) Test Performed in [address] [place] [address] 03/11/2022 6:07 EDT [facility] Blood CAPILLARY BLOOD / Unknown 03/11/2022 5:31 EDT 03/11/2022 6:07 EDT Yung Henderson MD POINT OF CARE TEST ORDERABLES Final Result Performing Organization Address City/[facility]/ZIP Co de Phone Number [facility] [address] [place] [address] * (ABNORMAL) COMPLETE BLOOD COUNT (03/10/2022 7:12 EDT) [facility] WBC 3.73(L) 4.00 - 12.40 K/cmm 03/10/2022 7:19 EDT [facility] RBC 2.86(L) 3.86 - 5.04 M/cmm 03/10/2022 7:19 EDT [facility] Hemoglobin 9.5(L) 11.6 - 15.2 gm/dL 03/10/2022 7:19 EDT [facility] HCT 27.8(L) 34.9 - 44.4 % 03/10/2022 7:19 EDT [facility] MCV 97 81 - 98 fl 03/10/2022 7:19 [facility] MCH 33.2 26.7 - 33.3 pg 03/10/2022 7:19 [facility] MCHC 34.2 32.1 - 35.9 gm/dL 03/10/2022 7:19 [facility] RDW-CV 13.2 <14.7 % 03/10/2022 7:19 [facility] RDW-SD 46.8 <50.4 fl 03/10/2022 7:19 [facility] PLT 152 141 - 377 K/cmm 03/10/2022 7:19 [facility] MPV 10.4 9.5 - 12.7 fl 03/10/2022 7:19 [facility] Blood VENOUS BLOOD / Unknown Venipuncture / Unknown 03/10/2022 7:12 EDT 03/10/2022 7:12 EDT Yung Henderson MD HEMATOLOGY & PF4 ORDERABLES F inal Result Performing Organization Address City/[facility]/ZIP Co de Phone Number [facility] [address] [place] [address] * PHOSPHORUS (03/10/2022 7:11 EDT) Phosphorus 4.1 2.5 - 4.5 mg/dL [facility] VENOUS BLOOD / Unknown Venipuncture / Unknown 03/10/2022 7:11 EDT 03/10/2022 7:12 EDT Yung Henderson MD CHEMISTRY & BLOOD GAS ORDERAB LES Final Result [facility] [address] [place] [address] * MAGNESIUM (03/10/2022 7:11 EDT) Magnesium 1.7 1.7 - 2.8 mg/dL 03/10/2022 8[facility] Blood VENOUS BLOOD / Unknown Venipuncture / Unknown 03/10/2022 7:11 EDT 03/10/2022 7:12 EDT us Yung Henderson MD CHEMISTRY & BLOOD GAS ORDERAB LES Final Result [facility] [address] [place] [address] * (ABNORMAL) COMPREHENSIVE METABOLIC PANEL (CMP) (03/10/2022 7:11 EDT) Sodium 135(L) 136 - 145 mmol/L 03/10/2022 8:35 [facility] Potassium 4.4 3.5 - 5.0 mmol/L 03/10/2022 8:35 [facility] Chloride 108 96 - 110 mmol/L 03/10/2022 8:35 [facility] CO2 Total 22 22 - 32 mmol/L 03/10/2022 8:35 [facility] Glucose 94 70 - 100 mg/dL 03/10/2022 8:35 [facility] BUN 10 10 - 26 mg/dL 03/10/2022 8:35 [facility] Creatinine 0.46(L) 0.52 - 1.04 mg/dL 03/10/2022 8:35 [facility] eGFR 114 >60 mL/min/1.7 3m2 03/10/2022 8:35 [facility] Total Protein 4.4(L) 6.3 - 8.2 g/dL 03/10/2022 8:35 [facility] Albumin 2.0(L) 3.4 - 4.9 g/dL 03/10/2022 8:35 [facility] Alkaline Phosphatase 93 38 - 126 U/L 03/10/2022 8:35 [facility] AST 46 15 - 46 U/L 03/10/2022 8:35 [facility] ALT 26 <35 U/L 03/10/2022 8:35 [facility] Bilirubin, Total <0.2 <1.4 mg/dL 03/10/20 8:35 [facility] Calcium 7.7(L) 8.5 - 10.5 mg/dL 03/10/2022 8:35 [facility] Albumin/Globulin Ratio 0.8(L) 1.0 - 2.5 03/10/2022 8:35 [facility] Anion Gap 5 5 - 14 03/10/2022 8:35 T [facility] Blood VENOUS BLOOD / Unknown Venipuncture / Unknown 03/10/2022 7:11 EDT 03/10/2022 7:12 EDT Yung Henderson MD CHEMISTRY & BLOOD GAS ORDERAB LES Final Result Performing Organization Address [facility]/ZIP Co de Phone Number [facility] [address] [place] [address] * (ABNORMAL) POCT GLUCOSE, INTERFACED (03/10/2022 5:31 EDT) Glucose, POC 114(H) 70 - 100 mg/dL 03/10/2022 5:32 EDT [facility] HN LAB POC COMMENT (GLUCOSE) Test Performed in [facility] 03/10/2022 5:32 EDT [facility] Blood CAPILLARY BLOOD / Unknown 03/10/2022 5:31 EDT 03/10/2022 5:32 EDT Yung Henderson MD POINT OF CARE TEST ORDERABLES Final Result Performing Organization Address City/[facility]/ZIP Co de Phone Number [facility] [address] [place] [address] * (ABNORMAL) POCT GLUCOSE, INTERFACED (03/09/2022 22:08 EDT) Glucose, POC 114(H) 70 - 100 mg/dL 03/09/2022 23:48 EDT [facility] HN LAB POC COMMENT (GLUCOSE) Test Performed in 2 [place] 03/09/2022 23:48 EDT [facility] Blood CAPILLARY BLOOD / Unknown 03/09/2022 22:08 EDT 03/09/2022 23:48 EDT us Yung Henderson MD POINT OF CARE TEST ORDERABLES Final Result Performing Organization Address [facility]/ZIP Co de Phone Number [facility] [address] [place] [address] * (ABNORMAL) POCT GLUCOSE, INTERFACED (03/09/2022 14:40 EDT) [facility] Glucose, POC 160(H) 70 - 100 mg/dL 03/09/2022 14:41 EDT [facility] HN LAB POC COMMENT (GLUCOSE) Test Performed in [address] [place] [address] 03/09/2022 14:41 EDT [facility] Blood CAPILLARY BLOOD / Unknown 03/09/2022 14:40 EDT 03/09/2022 14:41 EDT us Yung Henderson MD POINT OF CARE TEST ORDERABLES Final Result Performing Organization Address [facility] de Phone Number [facility] [address] [place] [address] * TRIGLYCERIDE (03/09/2022 6:56 EDT) [facility] Triglyceride 87 <=150 mg/dL 03/09/2022 7:48 EDT [facility] Comment:Note that therapeuti c goals will differ between patients based on cardiac risk factors and current medical therapy. Blood VENOUS BLOOD / Unknown Venipuncture / Unknown 03/09/2022 6:56 EDT 03/09/2022 7:02 EDT us Yung Henderson MD CHEMISTRY & BLOOD GAS ORDERAB LES Final Result Performing Organization Address [facility]/ZIP Co de Phone Number [facility] [address] [place] [address] * PHOSPHORUS (03/09/2022 6:56 EDT) [facility] Phosphorus 3.1 2.5 - 4.5 mg/dL 03/09/2022 7:48 EDT [facility] Blood VENOUS BLOOD / Unknown Venipuncture / Unknown 03/09/2022 6:56 EDT 03/09/2022 7:02 EDT us Yung Henderson MD CHEMISTRY & BLOOD GAS ORDERAB LES Final Result Performing Organization Address City/[facility]/ZIP Co de Phone Number [facility] [address] [place] [address] * MAGNESIUM (03/09/2022 6:56 EDT) Pathologist [facility] Magnesium 1.8 1.7 - 2.8 mg/dL 03/09/2022 7:48 EDT [facility] Blood VENOUS BLOOD / Unknown Venipuncture / Unknown 03/09/2022 6:56 EDT 03/09/2022 7:02 EDT us Yung Henderson MD CHEMISTRY & BLOOD GAS ORDERAB LES Final Result Performing Organization Address City/[facility] Co de Phone Number [facility] [address] [place] [address] * (ABNORMAL) COMPLETE BLOOD COUNT (03/09/2022 6:56 EDT) Pathologist [facility] WBC 3.73(L) 4.00 - 12.40 K/cmm 03/09/2022 7:09 [facility] RBC 2.83(L) 3.86 - 5.04 M/cmm 03/09/2022 7:09 [facility] Hemoglobin 9.4(L) 11.6 - 15.2 gm/dL 03/09/2022 7:09 [facility] HCT 27.7(L) 34.9 - 44.4 % 03/09/2022 7:09 [facility] MCV 98 81 - 98 fl 03/09/2022 7:09 [facility] MCH 33.2 26.7 - 33.3 pg 03/09/2022 7:09 [facility] MCHC 33.9 32.1 - 35.9 gm/dL 03/09/2022 7:09 T [facility] RDW-CV 13.0 <14.7 % 03/09/2022 7:09 [facility] RDW-SD 46.2 <50.4 fl 03/09/2022 7:09 [facility] PLT 146 141 - 377 K/cmm 03/09/2022 7:09 [facility] MPV 9.8 9.5 - 12.7 fl 03/09/2022 7:09 [facility] Blood VENOUS BLOOD / Unknown Venipuncture / Unknown 03/09/2022 6:56 EDT 03/09/2022 7:02 EDT us Yung Henderson MD HEMATOLOGY & PF4 ORDERABLES F inal Result Performing Organization Address City/State/[facility] Co de Phone Number [facility] [address] [place] [address] * (ABNORMAL) COMPREHENSIVE METABOLIC PANEL (CMP) (03/09/2022 6:56 EDT) Sodium 134(L) 136 - 145 mmol/L 03/09/2022 9:01 [facility] Potassium 3.8 3.5 - 5.0 mmol/L 03/09/2022 9:01 [facility] Chloride 110 96 - 110 mmol/L 03/09/2022 9:01 [facility] CO2 Total 21(L) 22 - 32 mmol/L 03/09/2022 9:01 [facility] Glucose 102(H) 70 - 100 mg/dL 03/09/2022 9:01 [facility] BUN 7(L) 10 - 26 mg/dL 03/09/2022 9:01 [facility] Creatinine 0.42(L) 0.52 - 1.04 mg/dL 03/09/2022 9:01 [facility] eGFR 116 >60 mL/min/1.7 3m2 03/09/2022 9:01 EDT [facility] Total Protein 4.1(L) 6.3 - 8.2 g/dL 03/09/2022 9:01 [facility] Albumin 1.9(L) 3.4 - 4.9 g/dL 03/09/2022 9:01 [facility] Alkaline Phosphatase 73 38 - 126 U/L 03/09/2022 9:01 [facility] AST 42 15 - 46 U/L 03/09/2022 9:01 [facility] ALT 21 <35 U/L 03/09/2022 9:01 [facility] Bilirubin, Total <0.2 <1.4 mg/dL 03/09/20 9:01 [facility] Calcium 7.6(L) 8.5 - 10.5 mg/dL 03/09/2022 9:01 [facility] Albumin/Globulin Ratio 0.9(L) 1.0 - 2.5 03/09/2022 9:01 [facility] Anion Gap 3(L) 5 - 14 03/09/2022 9:01 [facility] Blood VENOUS BLOOD / Unknown Venipuncture / Unknown 03/09/2022 6:56 EDT 03/09/2022 7:02 EDT us Yung Henderson MD CHEMISTRY & BLOOD GAS ORDERAB LES Final Result Performing Organization Address City/State/[facility] Co de Phone Number [facility] [address] [place] [address] * CORTISOL (03/09/2022 6:56 EDT) Cortisol 10 See Note ug/dL 03/09/2022 8:19 EDT [facility] Comment: NOTE: Reference Ranges (from [facility] IF[facility]): Collected Before 10:00 AM: ??4 - 23 ug/dL Collected After 5:00 PM: ?2 - 14 ug/dL The results of this assay can be falsely elevated due to the consumption of Biotin. Blood VENOUS BLOOD / Unknown Venipuncture / Unknown 03/09/2022 6:56 EDT 03/09/2022 7:02 EDT us Yung Henderson MD CHEMISTRY & BLOOD GAS ORDERAB LES Final Result Performing Organization Address [facility]/ZIP Co de Phone Number [facility] [address] [place] [address] * (ABNORMAL) POCT GLUCOSE, INTERFACED (03/09/2022 6:10 EDT) Glucose, POC 131(H) 70 - 100 mg/dL 03/09/2022 6:12 EDT [facility] HN LAB POC COMMENT (GLUCOSE) Test Performed in [facility] 03/09/2022 6:12 EDT [facility] Blood CAPILLARY BLOOD / Unknown 03/09/2022 6:10 EDT 03/09/2022 6:12 EDT us Yung Henderson MD POINT OF CARE TEST ORDERABLES Final Result Performing Organization Address [facility] Co de Phone Number [facility] [address] [place] [address] * (ABNORMAL) POCT GLUCOSE, INTERFACED (03/08/2022 21:57 EDT) Glucose, POC 176(H) 70 - 100 mg/dL 03/08/2022 22:00 EDT [facility] HN LAB POC COMMENT (GLUCOSE) Test Performed in [address] [place] 03/08/2022 22:00 EDT [facility] Blood CAPILLARY BLOOD / Unknown 03/08/2022 21:57 EDT 03/08/2022 22:00 EDT us Yung Henderson MD POINT OF CARE TEST ORDERABLES Final Result Performing Organization Address City/[facility]/ZIP Co de Phone Number [facility] [address] [place] [phone] * MR CERVICAL SPINE W WO CONTRAST (03/08/2022 21:53 EDT) Anatomical Region Laterality Modality Spine Magnetic Resonan ce 03/08/2022 20:4 1 EDT Impressions 03/08/2022 22:27 EDT No acute findings in the cervical spine. 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 Contrast material: CLARISCAN; Contrast volume: 12 ml; Contrast route: INTRAVENOUS (IV); ?? COMPARISON: CT HEAD WO CONTRAST 03/03/2022 1:56 PM FINDINGS: Cervical vertebral body heights are intact. Cervical lordosis is maintained. The dens is intact. Disc space heights are unremarkable. No abnormal marrow signal. No cord compression, expansion, or abnormal cord signal. No significant areas of canal or foraminal narrowing. Soft tissues are unremarkable. No abnormal enhancement in the cervical spine. 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 Contrast material: CLARISCAN; Contrast volume: 12 ml; Contrast route: INTRAVENOUS (IV); COMPARISON: CT HEAD WO CONTRAST 03/03/2022 1:56 PM FINDINGS: Cervical vertebral body heights are intact. Cervical lordosis is maintained. The dens is intact. Disc space heights are unremarkable. No abnormal marrow signal. No cord compression, expansion, or abnormal cord signal. No significant areas of canal or foraminal narrowing. Soft tissues are unremarkable. No abnormal enhancement in the cervical spine. IMPRESSION No acute findings in the cervical spine. THIS DOCUMENT HAS BEEN ELECTRONICALLY SIGNED BY TONI RIVERA MD FOR ANY QUESTIONS OR CONCERNS REGARDING THIS REPORT PLEASE CALL [facility] [phone] us Yung Henderson MD IMG MRI ORDERABLES Final Resu lt * MR HEAD W WO CONTRAST (03/08/2022 21:39 EDT) Anatomical Region Laterality Modality Head Magnetic Resonan ce 03/08/2022 20:4 1 EDT Impressions 03/08/2022 22:19 EDT 1. No acute intracranial pathology. 2. Chronic findings, as above. THIS DOCUMENT HAS BEEN ELECTRONICALLY SIGNED BY TONI RIVERA MD FOR ANY QUESTIONS OR CONCERNS REGARDING THIS REPORT PLEASE CALL [facility] AT [phone] Narrative 03/08/2022 22:19 EDT PROCEDURE INFORMATION: Exam: MR Head Without and With Contrast Exam date and time: 03/08/2022 8:41 PM Age: 52 years old Clinical indication: Other: Stroke, follow up TECHNIQUE: Imaging protocol: MR of the head without and with intravenous contrast. Contrast material: CLARISCAN; Contrast volume: 12 ml; Contrast route: INTRAVENOUS (IV); ?? 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 Chronic hemosiderin deposition superimposed over regions of chronic encephalomalacia change most likely reflecting small hemosiderin deposition from chronic microhemorrhage. No evidence of acute intracranial hemorrhage or extra-axial fluid collection. Generalized mild nonspecific T2/FLAIR hyperintensities of the periventricular and deep subcortical white matter, most likely secondary to chronic small vessel ischemic change. No evidence of mass effect or midline shift. No restricted diffusion to suggest acute infarct. No abnormal intracranial enhancement. Cerebral ventricles: ??Ex vacuo dilatation of the left lateral ventricle. No hydrocephalus. Bones/joints: Large chronic left-sided craniotomy. Paranasal sinuses: Normal as visualized. No acute sinusitis. Mastoid air cells: No mastoid effusion. Orbital cavities: Unremarkable. Soft tissues: Unremarkable. Procedure Note Toni Rivera MD - 03/08/2022 PROCEDURE INFORMATION: Exam: MR Head Without and With Contrast Exam date and time: 03/08/2022 8:41 PM Age: 52 years old Clinical indication: Other: Stroke, follow up TECHNIQUE: Imaging protocol: MR of the head without and with intravenous contrast. Contrast material: CLARISCAN; Contrast volume: 12 ml; Contrast route: INTRAVENOUS (IV); COMPARISON: CT HEAD WO CONTRAST 03/03/2022 1:56 PM FINDINGS: Brain: Chronic encephalomalacia changes in the left parietal and temporal lobes. Chronic hemosiderin deposition superimposed over regions of chronic encephalomalacia change most likely reflecting small hemosiderin deposition from chronic microhemorrhage. No evidence of acute intracranial hemorrhage or extra-axial fluid collection. Generalized mild nonspecific T2/FLAIR hyperintensities of the periventricular and deep subcortical white matter, most likely secondary to chronic small vessel ischemic change. No evidence of mass effect or midline shift. No restricted diffusion to suggest acute infarct. No abnormal intracranial enhancement. Cerebral ventricles: Ex vacuo dilatation of the left lateral ventricle. No hydrocephalus. Bones/joints: Large chronic left-sided craniotomy. Paranasal sinuses: Normal as visualized. No acute sinusitis. Mastoid air cells: No mastoid effusion. Orbital cavities: Unremarkable. Soft tissues: Unremarkable. IMPRESSION 1. No acute intracranial pathology. 2. Chronic findings, as above. THIS DOCUMENT HAS BEEN ELECTRONICALLY SIGNED BY TONI RIVERA MD FOR ANY QUESTIONS OR CONCERNS REGARDING THIS REPORT PLEASE CALL [facility] [phone] Yung Henderson MD IMG MRI ORDERABLES Final Resu lt * LYME AB, IGG AND IGM (03/08/2022 18:04 EDT) [facility] Lyme Antibody, IgG Negative Negative 03/09/2022 10:09 EDT [facility] Lyme Antibody, IgM Negative Negative 03/09/2022 10:09 EDT [facility] Blood VENOUS BLOOD / Unknown Venipuncture / Unknown 03/08/2022 18:04 EDT 03/08/2022 18:14 EDT Yung Henderson MD IMMUNOLOGY AND SEROLOGY ORDER [place] Final Result [facility] [address] [place] [address] * RHEUMATOID SCREEN/TITRE (03/08/2022 18:04 EDT) [facility] Rheumatoid Factor Screen Negative Negative 03/08/2022 21:54 EDT [facility] Blood VENOUS BLOOD / Unknown Venipuncture / Unknown 03/08/2022 18:04 EDT 03/08/2022 18:14 EDT Yung Henderson MD CHEMISTRY & BLOOD GAS ORDERAB LES Final Result Performing Organization Address [facility] Co de Phone Number [facility] [address] [place] [address] * VITAMIN B12 (03/08/2022 18:04 EDT) Vitamin B12 486 211 - 911 pg/mL 03/08/2022 21:49 EDT [facility] Blood VENOUS BLOOD / Unknown Venipuncture / Unknown 03/08/2022 18:04 EDT 03/08/2022 18:14 EDT Narrative [facility] - 03/08/2022 21:49 EDT The results of this assay can be falsely elevated due to the consumption of Biotin. Yung Henderson MD CHEMISTRY & BLOOD GAS ORDERAB LES Final Result Performing Organization Address [facility] de Phone Number [facility] [address] [place] [address] * HIV 1/2 ANTIGEN AND ANTIBODY, 4TH GENERATION (03/08/2022 18:04 EDT) HIV 1 and 2 Antibody/p24 Antigen, 4th Generation Negative Negative 03/08/2022 19:16 EDT [facility] Comment:If acute HIV-1 infec tion is suspected in a high risk patient, submit plasma specimen for HIV-1 RNA quantitation test. Blood VENOUS BLOOD / Unknown Venipuncture / Unknown 03/08/2022 18:04 EDT 03/08/2022 18:14 EDT Yung Henderson MD IMMUNOLOGY AND SEROLOGY ORDER [place] Final Result Performing Organization Address [facility] Co de Phone Number [facility] [address] [place] [address] * HEPATITIS C AB W REFLEX TO HCV RNA BY PCR (03/08/2022 18:04 EDT) Pathologist [facility] Hep C Antibody Negative Negative 03/08/2022 19:29 EDT [facility] Blood VENOUS BLOOD / Unknown Venipuncture / Unknown 03/08/2022 18:04 EDT 03/08/2022 18:14 EDT Yung Henderson MD CHEMISTRY & BLOOD GAS ORDERAB LES Final Result Performing Organization Address City/[facility]/ZIP Co de Phone Number [facility] [address] [place] [address] * C REACTIVE PROTEIN (03/08/2022 18:04 EDT) [facility] C-Reactive Protein 8.5 <10.0 mg/L 03/08/2022 18:39 EDT [facility] Blood VENOUS BLOOD / Unknown Venipuncture / Unknown 03/08/2022 18:04 EDT 03/08/2022 18:14 EDT Yung Henderson MD CHEMISTRY & BLOOD GAS ORDERAB LES Final Result Performing Organization Address City/[facility] Co de Phone Number [facility] [address] [place] [address] * (ABNORMAL) ELECTROLYTES (03/08/2022 18:04 EDT) [facility] Sodium 133(L) 136 - 145 mmol/L 03/08/2022 18:39 EDT [facility] Potassium 3.9 3.5 - 5.0 mmol/L 03/08/2022 18:39 EDT [facility] Chloride 108 96 - 110 mmol/L 03/08/2022 18:39 EDT [facility] CO2 Total 22 22 - 32 mmol/L 03/08/2022 18:39 EDT [facility] Anion Gap 3(L) 5 - 14 03/08/2022 18:39 EDT [facility] Blood VENOUS BLOOD / Unknown Venipuncture / Unknown 03/08/2022 18:04 EDT 03/08/2022 18:14 EDT us Yung Henderson MD CHEMISTRY & BLOOD GAS ORDERAB LES Final Result [facility] [address] [place] [address] * SSA/SSB PANEL (03/08/2022 18:03 EDT) SSA Antibody 5.6 <20.0 Units 03/13/2022 15:37 EDT [facility] Comment: ? Negative: <20.0 Units ? Weak Positive: 20.0 - 39.9 Units ? Moderate Positive: 40.0 - 80.0 Units ? Strong Positive: >80.0 Units Results were obtained with the INOVA QUANTA Lite SS-A TANI. ??SS-A values obtained with different manufacturers' assay methods may not be used interchangeably. ??The magnitude of the reported IgG levels cannot be correlated to an endpoint titer. SSB Antibody 1.4 <20.0 Units 03/13/2022 15:37 EDT [facility] Comment: ? Negative: <20.0 Units ? Weak Positive: 20.0 - 39.9 Units ? Moderate Positive: 40.0 - 80.0 Units ? Strong Positive: >80.0 Units Results were obtained with the INOVA QUANTA Lite SS-B TANI. ??SS-B values obtained with different manufacturers' assay methods may not be used interchangeably. ??The magnitude of the reported IgG levels cannot be correlated to an endpoint titer. Blood VENOUS BLOOD / Unknown Venipuncture / Unknown 03/08/2022 18:03 EDT 03/08/2022 18:14 EDT us Yung Henderson MD IMMUNOLOGY AND SEROLOGY ORDER [place] Final Result Performing Organization Address City/[facility]/ZIP Co de Phone Number [facility] [address] [place] [address] * ANTI NUCLEAR AB (HERRERA), IFA (03/08/2022 18:03 EDT) [facility] HERRERA Interpretation Negative Negative 2021 15:10 EDT [facility] Comment:No titer performed, HERRERA Screen is negative. Blood VENOUS BLOOD / Unknown Venipuncture / Unknown 03/08/2022 18:03 EDT 03/08/2022 18:14 EDT Narrative [facility] - 03/12/2022 15:10 EDT Results were obtained with the INOVA NOVA Lite HEp-2 HERRERA Kit by indirect immunofluorescence. us Yung Henderson MD IMMUNOLOGY AND SEROLOGY ORDER [place] Final Result Performing Organization Address [facility] Co de Phone Number [facility] [address] [place] [phone] * ANCA, IFA (03/08/2022 18:03 EDT) [facility] ANCA Interpretation Negative Negative 03/12/2022 15:42 EDT [facility] Comment: No titer performed, ANCA Screen is negative. HERRERA Positive, suggest follow-up HERRERA testing if clinically indicated. ??Cannot rule out Atypical ANCA (A-ANCA) Results were obtained with the INOVA NOVA Lite ANCA kit by indirect immunofluorescence. Blood VENOUS BLOOD / Unknown Venipuncture / Unknown 03/08/2022 18:03 EDT 03/08/2022 18:14 EDT us Yung Henderson MD IMMUNOLOGY AND SEROLOGY ORDER [place] Final Result Performing Organization Address City/[facility]/ZIP Co de Phone Number [facility] [address] [place] [phone] * (ABNORMAL) CALCIUM, IONIZED (03/08/2022 18:03 EDT) [facility] Calcium, Ionized 1.09(L) 1.14 - 1.35 mmol/L 03/08/2022 18:52 EDT [facility] Blood VENOUS BLOOD / Unknown Venipuncture / Unknown 03/08/2022 18:03 EDT 03/08/2022 18:14 EDT us Yung Henderson MD CHEMISTRY & BLOOD GAS ORDERAB LES Final Result [facility] [address] [place] [address], [facility] * (ABNORMAL) DRUG SCREEN 12, URINE (03/08/2022 14:51 EDT) Amphetamine Screen, Ur Negative Negative, Negative Screen 03/08/2022 15:43 EDT [facility] Barbiturates Screen, Ur Negative Negative, Negative Screen 03/08/2022 15:43 EDT [facility] Benzodiazepine Screen, Ur Presumptive Positive, interpret with caution.(A) Negative, Negative Screen 03/08/2022 15:43 EDT [facility] Cocaine Metabolites Screen, Ur Negative Negative, Negative Screen 03/08/2022 15:43 EDT [facility] Methamphetamine Screen, Ur Negative Negative, Negative Screen 03/08/2022 15:43 EDT [facility] Methadone Screen, Ur Negative Negative, Negative Screen 03/08/2022 15:43 EDT [facility] Opiates Screen, Ur Negative Negative, Negative Screen 03/08/2022 15:43 EDT [facility] Oxycodone Screen, Ur Negative Negative, Negative Screen 03/08/2022 15:43 EDT [facility] Phencyclidine Screen, Ur Negative Negative Screen, Negative 03/08/2022 15:43 EDT [facility] Cannabinoids Screen, Ur Negative Negative, Negative Screen 03/08/2022 15:43 EDT [facility] Propoxyphene Screen, Ur Negative Negative, Negative Screen 03/08/2022 15:43 EDT [facility] Tricyclics Screen, Ur Negative Negative Screen, Negative 03/08/2022 15:43 EDT [facility] Urine URINE SPECIMEN COLLECTION, CLEAN CATCH / Unknown Urine Collect / Unknown 03/08/2022 14:51 EDT 03/08/2022 15:13 EDT Narrative [facility] - 03/08/2022 15:43 EDT Drug Class Cutoff Concentrations: Amphetamines - 500 ng/mL Barbiturates - 200 ng/mL Benzodiazepines - 150 ng/mL Cocaine - 150 ng/mL Methamphetamine - 500 ng/mL Methadone - 200 ng/mL Opiates - 100 ng/mL Oxycodone - 100 ng/mL Phencyclidine (PCP) - 25 ng/mL Tetrahydrocannabinol (THC) - 50 ng/mL Propoxyphene - 300 ng/mL Tricyclic Antidepressants - 300 ng/mL This is a screening assay only, intended for use in clinical monitoring or management of patients. False positive or false negative results can occur. ??If confirmation testing is needed, please place order as Add-On order in [facility]. ??Specimens are retained in the laboratory for 7 days. us Yung Henderson MD GEN LAB UNIT COLLECT ORDERABL ES Final Result Performing Organization Address City/[facility]/ZIP Co de Phone Number [facility] [address] [place] [address] * (ABNORMAL) POCT GLUCOSE, INTERFACED (03/08/2022 14:41 EDT) [facility] Signature Glucose, POC 102(H) 70 - 100 mg/dL 03/08/2022 14:42 EDT [facility] HN LAB POC COMMENT (GLUCOSE) Test Performed in [address] [place] [address] 03/08/2022 14:42 EDT [facility] Blood CAPILLARY BLOOD / Unknown 03/08/2022 14:41 EDT 03/08/2022 14:42 EDT Yung Henderson MD POINT OF CARE TEST ORDERABLES Final Result Performing Organization Address [facility]/ZIP Co de Phone Number [facility] [address] [place] [phone] * T4 FREE (03/08/2022 12:45 EDT) Pathologist [facility] T4, Free 1.5 0.8 - 2.2 ng/dL 03/08/2022 17:38 EDT [facility] Blood VENOUS BLOOD / Unknown IV Draw / Unknown 03/08/2022 12:45 EDT 03/08/2022 13:02 EDT Yung Henderson MD CHEMISTRY & BLOOD GAS ORDERAB LES Final Result Performing Organization Address [facility] Co de Phone Number [facility] [address] [place] [address] * TSH (03/08/2022 12:45 EDT) [facility] TSH 1.97 0.47 - 4.68 mIU/L 03/08/2022 17:38 EDT [facility] Blood VENOUS BLOOD / Unknown IV Draw / Unknown 03/08/2022 12:45 EDT 03/08/2022 13:02 EDT Narrative [facility] - 03/08/2022 17:38 EDT The results of this assay can be falsely lowered due to the consumption of Biotin. Yung Henderson MD CHEMISTRY & BLOOD GAS ORDERAB LES Final Result Performing Organization Address [facility] de Phone Number [facility] [address] [place] [address] * (ABNORMAL) ELECTROLYTES (03/08/2022 12:45 EDT) [facility] Sodium 134(L) 136 - 145 mmol/L 03/08/2022 13:32 EDT [facility] Potassium 2.7(LL) 3.5 - 5.0 mmol/L 03/08/2022 13:32 EDT [facility] Chloride 111(H) 96 - 110 mmol/L 03/08/2022 13:32 EDT [facility] CO2 Total 20(L) 22 - 32 mmol/L 03/08/2022 13:32 EDT [facility] Anion Gap 3(L) 5 - 14 03/08/2022 13:32 EDT [facility] Blood VENOUS BLOOD / Unknown IV Draw / Unknown 03/08/2022 12:45 EDT 03/08/2022 13:02 EDT us Yung Henderson MD CHEMISTRY & BLOOD GAS ORDERAB LES Final Result Performing Organization Address City/[facility]/ZIP Co de Phone Number [facility] [address] [place] [address] * TRIGLYCERIDE (03/08/2022 6:58 EDT) Pathologist [facility] Triglyceride 80 <=150 mg/dL 03/08/2022 12:08 EDT [facility] Comment:Note that therapeuti c goals will differ between patients based on cardiac risk factors and current medical therapy. Blood VENOUS BLOOD / Unknown Venipuncture / Unknown 03/08/2022 6:58 EDT 03/08/2022 7:08 EDT us Yung Henderson MD CHEMISTRY & BLOOD GAS ORDERAB LES Final Result Performing Organization Address [facility] Co de Phone Number [facility] [address] [place] [address] * VITAMIN D (25,OH) (03/08/2022 6:58 EDT) [facility] 25OH Vitamin D Tot 32 30 - 100 ng/mL 03/08/2022 9:59 EDT [facility] Blood VENOUS BLOOD / Unknown Venipuncture / Unknown 03/08/2022 6:58 EDT 03/08/2022 7:08 EDT us Yung Henderson MD CHEMISTRY & BLOOD GAS ORDERAB LES Final Result Performing Organization Address City/[facility]/ZIP Co de Phone Number [facility] [address] [place] [address] * (ABNORMAL) CALCULATED CALCIUM (03/08/2022 6:58 EDT) Pathologist [facility] Calcium 7.5(L) 8.5 - 10.5 mg/dL 03/08/2022 7:42 EDT [facility] Calculated Calcium 9.2 8.5 - 10.5 mg/dL 03/08/2022 7:42 EDT [facility] Blood VENOUS BLOOD / Unknown Venipuncture / Unknown 03/08/2022 6:58 EDT 03/08/2022 7:08 EDT us Yung Henderson MD CHEMISTRY & BLOOD GAS ORDERAB LES Final Result Performing Organization Address City/[facility] Co de Phone Number [facility] [address] [place] [address] * (ABNORMAL) MAGNESIUM (03/08/2022 6:58 EDT) Magnesium 1.5(L) 1.7 - 2.8 mg/dL 03/08/2022 7:39 EDT [facility] Blood VENOUS BLOOD / Unknown Venipuncture / Unknown 03/08/2022 6:58 EDT 03/08/2022 7:08 EDT us Yung Henderson MD CHEMISTRY & BLOOD GAS ORDERAB LES Final Result Performing Organization Address [facility] de Phone Number [facility] [address] [place] [address] * PHOSPHORUS (03/08/2022 6:58 EDT) Phosphorus 2.8 2.5 - 4.5 mg/dL 03/08/2022 7:39 EDT [facility] Blood VENOUS BLOOD / Unknown Venipuncture / Unknown 03/08/2022 6:58 EDT 03/08/2022 7:08 EDT us Yung Henderson MD CHEMISTRY & BLOOD GAS ORDERAB LES Final Result Performing Organization Address [facility] Co de Phone Number [facility] [address] [place] [address] * (ABNORMAL) COMPLETE BLOOD COUNT (03/08/2022 6:58 EDT) WBC 3.12(L) 4.00 - 12.40 K/cmm 03/08/2022 7:18 [facility] RBC 2.93(L) 3.86 - 5.04 M/cmm 03/08/2022 7:18 [facility] Hemoglobin 9.8(L) 11.6 - 15.2 gm/dL 03/08/2022 7:18 [facility] HCT 28.8(L) 34.9 - 44.4 % 03/08/2022 7:18 [facility] MCV 98 81 - 98 fl 03/08/2022 7:18 [facility] MCH 33.4(H) 26.7 - 33.3 pg 03/08/2022 7:18 [facility] MCHC 34.0 32.1 - 35.9 gm/dL 03/08/2022 7:18 [facility] RDW-CV 12.9 <14.7 % 03/08/2022 7:18 [facility] RDW-SD 46.3 <50.4 fl 03/08/2022 7:18 [facility] PLT 126(L) 141 - 377 K/cmm 03/08/2022 7:18 [facility] MPV 9.8 9.5 - 12.7 fl 03/08/2022 7:18 [facility] Blood VENOUS BLOOD / Unknown Venipuncture / Unknown 03/08/2022 6:58 EDT 03/08/2022 7:08 EDT us Yung Henderson MD HEMATOLOGY & PF4 ORDERABLES F inal Result [facility] [address] [place] [address] * (ABNORMAL) COMPREHENSIVE METABOLIC PANEL (CMP) (03/08/2022 6:58 EDT) Sodium 132(L) 136 - 145 mmol/L 03/08/2022 7:42 [facility] Potassium 2.9(LL) 3.5 - 5.0 mmol/L 03/08/2022 7:42 [facility] Chloride 106 96 - 110 mmol/L 03/08/2022 7:42 [facility] CO2 Total 21(L) 22 - 32 mmol/L 03/08/2022 7:42 [facility] Glucose 111(H) 70 - 100 mg/dL 03/08/2022 7:42 [facility] BUN 10 10 - 26 mg/dL 03/08/2022 7:42 [facility] Creatinine 0.44(L) 0.52 - 1.04 mg/dL 03/08/2022 7:42 [facility] eGFR 115 >60 mL/min/1.7 3m2 03/08/2022 7:42 [facility] Total Protein 4.2(L) 6.3 - 8.2 g/dL 03/08/2022 7:42 [facility] Albumin 1.9(L) 3.4 - 4.9 g/dL 03/08/2022 7:42 [facility] Alkaline Phosphatase 80 38 - 126 U/L 03/08/2022 7:42 [facility] AST 23 15 - 46 U/L 03/08/2022 7:42 [facility] ALT 16 <35 U/L 03/08/2022 7:42 [facility] Bilirubin, Total <0.2 <1.4 mg/dL 03/08/20 7:42 [facility] Calcium 7.5(L) 8.5 - 10.5 mg/dL 03/08/2022 7:42 [facility] Albumin/Globulin Ratio 0.8(L) 1.0 - 2.5 03/08/2022 7:42 [facility] Anion Gap 5 5 - 14 03/08/2022 7:42 [facility] Blood VENOUS BLOOD / Unknown Venipuncture / Unknown 03/08/2022 6:58 T 03/08/2022 7:08 EDT us Yung Henderson MD CHEMISTRY & BLOOD GAS ORDERAB LES Final Result [facility] [address] [place] [address] * XR ABDOMEN 1 VIEW (03/07/2022 17:38 EDT) Anatomical Region Laterality Modality Body Computed Radiogr aphy 03/07/2022 17:3 3 EDT Addenda Addendum by Raquel Hopkins MD on 03/07/2022 19:29 EDT Further discussion was had with Dr. Henderson regarding residual oral contrast in the left colon. THIS DOCUMENT HAS BEEN ELECTRONICALLY SIGNED BY RAQUEL HOPKINS MD FOR ANY QUESTIONS OR CONCERNS REGARDING THIS REPORT PLEASE CALL [facility] AT [phone] Impressions 03/07/2022 18:07 EDT 1. No evidence of obstruction or definite ileus. 2. Oral contrast in the left colon. Correlation recommended with regard to recent oral contrast administration with regard to transit time. THIS DOCUMENT HAS BEEN ELECTRONICALLY SIGNED BY RAQUEL HOPKINS MD FOR ANY QUESTIONS OR CONCERNS REGARDING THIS REPORT PLEASE CALL [facility] AT [phone] Narrative 03/07/2022 18:07 EDT PROCEDURE INFORMATION: Exam: XR Abdomen Exam date and time: 03/07/2022 5:33 PM Age: 52 years old Clinical indication: Constipation and other: Constipation x10 days, concern for ileus. Current benign abd exam TECHNIQUE: Imaging protocol: XR of the abdomen. Views: Frontal supine view of the abdomen. 1 View. Total images: 1 COMPARISON: CT ABDOMEN PELVIS W CONTRAST 01/30/2022 4:03 PM FINDINGS: Gastrointestinal tract: Mild amount of solid stool within the large bowel. Oral contrast within the left colon. Air is seen in the rectosigmoid. No small bowel dilatation. Bones/joints: Unremarkable. Soft tissues: No intra-abdominal mass effect. Opaque stone disease. Procedure Note Raquel Hopkins MD - 03/07/2022 PROCEDURE INFORMATION: Exam: XR Abdomen Exam date and time: 03/07/2022 5:33 PM Age: 52 years old Clinical indication: Constipation and other: Constipation x10 days, concern for ileus. Current benign abd exam TECHNIQUE: Imaging protocol: XR of the abdomen. Views: Frontal supine view of the abdomen. 1 View. Total images: 1 COMPARISON: CT ABDOMEN PELVIS W CONTRAST 01/30/2022 4:03 PM FINDINGS: Gastrointestinal tract: Mild amount of solid stool within the large bowel. Oral contrast within the left colon. Air is seen in the rectosigmoid. No small bowel dilatation. Bones/joints: Unremarkable. Soft tissues: No intra-abdominal mass effect. Opaque stone disease. IMPRESSION 1. No evidence of obstruction or definite ileus. 2. Oral contrast in the left colon. Correlation recommended with regard to recent oral contrast administration with regard to transit time. THIS DOCUMENT HAS BEEN ELECTRONICALLY SIGNED BY RAQUEL HOPKINS MD FOR ANY QUESTIONS OR CONCERNS REGARDING THIS REPORT PLEASE CALL [facility] [phone] us Yung Henderson MD IMG DIAGNOSTIC IMAGING ORDERA BLES Edited Result - Final * MR LUMBAR SPINE W WO CONTRAST (03/07/2022 15:55 EDT) Anatomical Region Laterality Modality Spine Magnetic Resonan ce 03/07/2022 16:4 8 EDT Impressions 03/07/2022 16:48 EDT 1. ??No acute findings in the lumbar spine to explain clinically suspected cauda equina syndrome. 2. ??Mild-moderate lower lumbar spondylosis. 3. ??Mild spinal stenosis at L4-L5. No high-grade spinal stenosis identified in the lumbar spine. 4. ??Mild multilevel neuroforaminal stenosis, most conspicuous bilaterally at L5-S1. 5. ??No fracture or focal aggressive bony lesion identified. No evidence of acute discitis-osteomyelitis. 6. ??Mild edema in the lower posterior paraspinal musculature, suspicious for strain. Narrative 03/07/2022 16:48 EDT MR LUMBAR SPINE W WO CONTRAST ?? Signs and Symptoms/Comments: ??Urinary retention, areflexia, no rectal tone, severe constipation, lower extremity weakness concerning for cauda equina syndrome. Back pain, progressive neurologic deficit. Comparisons: CT abdomen pelvis on 01/30/2022. Technique: MR lumbar spine with and without contrast was performed with the following sequences: Sagittal T2, sagittal T1, sagittal STIR, axial T1, axial T2, coronal T2 fat-sat, and post gadolinium axial and sagittal T1 fat-sat. 12 cc Dotarem intravenous contrast was administered. FINDINGS: BONES: 5 lumbar type vertebral bodies. Slight degenerative retrolisthesis of L5 on S1. No acute fracture or focal aggressive bony lesion identified. No evidence of acute discitis-osteomyelitis. SPINAL CORD AND CAUDA EQUINA: Lower spinal cord unremarkable. Conus terminus normally at the T12-L1 level. Cauda equina normal in signal and morphology. No evidence of epidural abscess or phlegmon. DEGENERATIVE CHANGES: Multilevel degenerative disc disease, most advanced at L5- S1. Mild-moderate lower lumbar facet arthrosis, most advanced bilaterally at L4-L5. SEGMENTAL ANALYSIS: T11-T12: Unremarkable. T12-L1: Unremarkable. L1-L2: Unremarkable. L2-L3: No posterior disc bulge or spinal stenosis. Minimal bilateral neuroforaminal stenosis. L3-L4: No posterior disc bulge or spinal stenosis. Minimal bilateral neuroforaminal stenosis. L4-L5: Shallow broad-based posterior disc bulge, ligamentum flavum hypertrophy and short pedicles contribute to mild spinal stenosis. Minimal bilateral neuroforaminal stenosis. L5-S1: Shallow central disc bulge. No significant spinal stenosis. Mild bilateral neuroforaminal stenosis. SACROILIAC JOINTS: Minimal bilateral degenerative changes. No joint effusion or periarticular bone marrow edema identified. PARASPINAL SOFT TISSUES: Mild edema in the lower posterior paraspinal musculature, suspicious for strain. Procedure Note Sherman Marie MD - 03/07/2022 MR LUMBAR SPINE W WO CONTRAST Signs and Symptoms/Comments: Urinary retention, areflexia, no rectaltone, severe constipation, lower extremity weakness concerning for caudaequina syndrome. Back pain, progressive neurologic deficit. Comparisons: CT abdomen pelvis on 01/30/2022. Technique: MR lumbar spine with and without contrast was performed withthe following sequences: Sagittal T2, sagittal T1, sagittal STIR, axialT1, axial T2, coronal T2 fat-sat, and post gadolinium axial and sagittalT1 fat-sat. 12 cc Dotarem intravenous contrast was administered. FINDINGS: BONES: 5 lumbar type vertebral bodies. Slight degenerative retrolisthesisof L5 on S1. No acute fracture or focal aggressive bony lesion identified.No evidence of acute discitis-osteomyelitis. SPINAL CORD AND CAUDA EQUINA: Lower spinal cord unremarkable. Conusterminus normally at the T12-L1 level. Cauda equina normal in signal andmorphology. No evidence of epidural abscess or phlegmon. DEGENERATIVE CHANGES: Multilevel degenerative disc disease, most advancedat L5- S1. Mild-moderate lower lumbar facet arthrosis, most advancedbilaterally at L4-L5. SEGMENTAL ANALYSIS: T11-T12: Unremarkable. T12-L1: Unremarkable. L1-L2: Unremarkable. L2-L3: No posterior disc bulge or spinal stenosis. Minimal bilateralneuroforaminal stenosis. L3-L4: No posterior disc bulge or spinal stenosis. Minimal bilateralneuroforaminal stenosis. L4-L5: Shallow broad-based posterior disc bulge, ligamentum flavumhypertrophy and short pedicles contribute to mild spinal stenosis. Minimalbilateral neuroforaminal stenosis. L5-S1: Shallow central disc bulge. No significant spinal stenosis. Mildbilateral neuroforaminal stenosis. SACROILIAC JOINTS: Minimal bilateral degenerative changes. No jointeffusion or periarticular bone marrow edema identified. PARASPINAL SOFT TISSUES: Mild edema in the lower posterior paraspinalmusculature, suspicious for strain. IMPRESSION 1. No acute findings in the lumbar spine to explain clinically suspectedcauda equina syndrome. 2. Mild-moderate lower lumbar spondylosis. 3. Mild spinal stenosis at L4-L5. No high-grade spinal stenosisidentified in the lumbar spine. 4. Mild multilevel neuroforaminal stenosis, most conspicuous bilaterallyat L5- S1. 5. No fracture or focal aggressive bony lesion identified. No evidence ofacute discitis-osteomyelitis. 6. Mild edema in the lower posterior paraspinal musculature, suspiciousfor strain. Yung Henderson MD IMG MRI ORDERABLES Final Resu lt * ECG REPORT - SCANNED (03/07/2022 13:15 EDT) 03/07/2022 13:1 5 EDT us Scan 2 Post Closer PROCEDURE/MINOR SURGICAL OR DERABLES Final Result * (ABNORMAL) CALCULATED CALCIUM (03/07/2022 11:04 EDT) Calcium 7.9(L) 8.5 - 10.5 mg/dL 03/07/2022 15:40 EDT [facility] Calculated Calcium 9.3 8.5 - 10.5 mg/dL 03/07/2022 15:40 EDT [facility] Blood VENOUS BLOOD / Unknown Venipuncture / Unknown 03/07/2022 11:04 EDT 03/07/2022 11:06 EDT Yung Henderson MD CHEMISTRY & BLOOD GAS ORDERAB LES Final Result Performing Organization Address City/[facility]/ZIP Co de Phone Number [facility] [address] [place] [address] * PROCALCITONIN (03/07/2022 11:04 EDT) Procalcitonin <0.05 See Note ng/mL 03/07/2022 11:39 EDT [facility] Comment: NOTE: Reference Range: <0.5 ng/mL - Low risk of severe sepsis >2.0 ng/mL - High risk of severe sepsis Blood VENOUS BLOOD / Unknown Venipuncture / Unknown 03/07/2022 11:04 EDT 03/07/2022 11:06 EDT Yung Henderson MD CHEMISTRY & BLOOD GAS ORDERAB LES Final Result Performing Organization Address City/[facility]/ZIP Co de Phone Number [facility] [address] [place] [address] * BACTERIAL CULTURE, BLOOD (03/07/2022 10:54 EDT) Organism ID No Growth at 5 days VITEK SUSCEPTIBILITY 03/12/2022 11:01 EDT [facility] Blood VENOUS BLOOD / Unknown Blood Culture / Unknown 03/07/2022 10:54 EDT 03/07/2022 10:57 EDT Yves aMin MD MICROBIOLOGY - GENERAL ORDElfego CROSS Final Result [facility] [address] [place] [address] * BACTERIAL CULTURE, BLOOD (03/07/2022 10:54 EDT) Organism ID No Growth at 5 days VITEK SUSCEPTIBILITY 03/12/2022 11:01 EDT [facility] Blood VENOUS BLOOD / Unknown Blood Culture / Unknown 03/07/2022 10:54 EDT 03/07/2022 10:57 EDT Yves Main MD MICROBIOLOGY - GENERAL ORDE TAY Final Result [facility] [address] [place] [address] * (ABNORMAL) BACTERIAL CULTURE, URINE (03/07/2022 9:44 EDT) Organism ID Greater than 100,000 CFU/ml Proteus mirabilis( A) VITEK SUSCEPTIBILITY 03/09/2022 6:54 EDT [facility] Comment: Cefazolin susceptibility results can be used to predict susceptibility results for the following oral cephalosporins when used for therapy of uncomplicated UTI's due to E.coli, K.pneumoniae and P.mirabilis: cefaclor, cefdinir, cefpodoxime, cefprozil, cefuroxime, cephalexin and loracarbef. ??Please note that only cefdinir, cefpodoxime, cefuroxime and cephalexin are on the [facility] [place]. Urine URINE SPECIMEN COLLECTION, CLEAN CATCH / Unknown Urine Collect / Unknown 03/07/2022 9:44 EDT 03/07/2022 10:26 EDT Narrative Organism Antibiotic Method Susceptibility Proteus mirabilis Amoxicillin Clavulan ic acid VITEK SUSCEPTIBILITY 4 ug/mL: Susceptible Proteus mirabilis Ampicillin VITEK SUSCEPTIBILITY [...] tho xazole VITEK SUSCEPTIBILITY <=20 ug/mL: Susceptible Yves Main MD MICROBIOLOGY - [facility]AL [facility] Final Result [facility] [address] [place] [address] * (ABNORMAL) UA SEDIMENT (CULTURE IF POS) (03/07/2022 9:44 EDT) Urine RBC Count, Manual 11 - 50(A) 0 - 2 Cells/HPF 03/07/2022 10:26 EDT [facility] Urine WBC Count 11 - 50(A) 0 - 3 Cells/HPF 03/07/2022 10:26 EDT [facility] Urine Squamous Count, Manual Few(A) None Seen Cells/HPF 03/07/2022 10:26 EDT [facility] Urine Bacteria Count, Manual Many(A) None Seen Bacteria/H PF 03/07/2022 10:26 EDT [facility] Urine URINE SPECIMEN COLLECTION, CLEAN CATCH / Unknown Urine Collect / Unknown 03/07/2022 9:44 EDT 03/07/2022 9:47 EDT [facility] - 03/07/2022 10:26 EDT Urine Sediment Analysis results are unreliable on urines that are unrefrigerated for >2 hrs or refrigerated >8 hrs. us Yves Main MD URINALYSIS ORDERABLES Final Result Performing Organization Address [facility]/ZIP Co de Phone Number [facility] [address] [place] [address] * (ABNORMAL) UA WITH REFLEX SEDIMENT (CULTURE IF POS) (03/07/2022 9:44 EDT) Color UA Brown(A) Colorless to Dark Yellow 03/07/2022 10:09 [facility] Clarity UA Cloudy(A) Clear 03/07/2022 10:09 EDT [facility] Glucose UA Negative Negative 03/07/2022 10:09 [facility] Bilirubin UA 2+(A) Negative 03/07/2022 10:09 [facility] Ketones UA 1+(A) Negative 03/07/2022 10:09 [facility] Specific [place], Urine <=1.005 1.001 - 1.035 03/07/2022 10:09 [facility] Blood UA 3+(A) Negative 03/07/2022 10:09 [facility] pH, UA 8.5(H) 4.6 - 8.0 03/07/2022 10:09 [facility] Protein UA 3+(A) Negative 03/07/2022 10:09 [facility] Urobilinogen UA 1.0 0.2 , 1.0, Normal mg/dL 03/07/2022 10:09 [facility] Nitrite UA Positive(A) Negative 03/07/2022 10:09 [facility] Leukocyte Esterase UA 3+(A) Negative 03/07/2022 10:09 [facility] Urine URINE SPECIMEN COLLECTION, CLEAN CATCH / Unknown Urine Collect / Unknown 03/07/2022 9:44 EDT 03/07/2022 9:47 EDT us Yves Main MD URINALYSIS ORDERABLES Final Result Performing Organization Address City/[facility]/ZIP Co de Phone Number [facility] [address] [place] [id number] * C REACTIVE PROTEIN (03/07/2022 8:42 EDT) [facility] C-Reactive Protein 7.0 <10.0 mg/L 03/07/2022 20:00 EDT [facility] Blood VENOUS BLOOD / Unknown Venipuncture / Unknown 03/07/2022 8:42 EDT 03/07/2022 8:48 EDT Yung Henderson MD CHEMISTRY & BLOOD GAS ORDERAB LES Final Result Performing Organization Address [facility]/ZIP Co de Phone Number [facility] [address] [place] [address] * CK (03/07/2022 8:42 EDT) [facility] CK 90 30 - 135 U/L 03/07/2022 10:53 EDT [facility] Comment:Moderate hemolysis i dentified, interpret with caution as results may be affected due to hemolysis. Blood VENOUS BLOOD / Unknown Venipuncture / Unknown 03/07/2022 8:42 EDT 03/07/2022 8:48 EDT us Yung Henderson MD CHEMISTRY & BLOOD GAS ORDERAB LES Final Result Performing Organization Address [facility]/ZIP Co de Phone Number [facility] [address] [place] [address] * INFLUENZA A AND B,RSV PCR (03/07/2022 8:42 EDT) [facility] FLU A RNA Result (FLARES) Negative Negative 03/07/2022 9:34 EDT [facility] FLU B RNA Result (FLBRES) Negative Negative 03/07/2022 9:34 EDT [facility] RSV RNA Result (RSVRES) Negative Negative 03/07/2022 9:34 EDT [facility] Swab ENTIRE NASOPHARYNX / Unknown Swab / Unknown 03/07/2022 8:42 EDT 03/07/2022 8:45 EDT us Yves Main MD MICROBIOLOGY - GENERAL JELANI CROSS Final Result [facility] [address] [place] [address] * COVID-19 [facility] [place]) (03/07/2022 8:42 EDT) Swab ENTIRE NASOPHARYNX / Unknown Swab / Unknown 03/07/2022 8:42 EDT 03/07/2022 8:45 EDT us Yves Main MD MICROBIOLOGY - GENERAL JELANI CROSS Final Result Performing Organization Address City/[facility]/ZIP Co de Phone Number [facility] [address] [place] [address] * COVID-19 TESTING (03/07/2022 8:42 EDT) [facility] COVID-19 rt-PCR Result Negative Negative 03/07/2022 9:34 EDT [facility] Performing Lab Cepheid GeneXpert [facility] 03/07/2022 9:34 EDT [facility] Swab ENTIRE NASOPHARYNX / Unknown Swab / Unknown 03/07/2022 8:42 EDT 03/07/2022 8:45 EDT us Yves Main MD MICROBIOLOGY - GENERAL JELANI CROSS Final Result Performing Organization Address City/[facility]/ZIP Co de Phone Number [facility] [address] [place] [address] * ETHANOL, BLOOD (03/07/2022 8:42 EDT) [facility] Ethanol, Blood <10 See Note mg/dL 03/07/2022 9:05 EDT [facility] Comment: NOTE: Ethanol is not present at detectable concentrations (<10 mg/dL) in healthy, non-drinking individuals. Blood VENOUS BLOOD / Unknown Venipuncture / Unknown 03/07/2022 8:42 EDT 03/07/2022 8:48 EDT Narrative [facility] - 03/07/2022 9:05 [facility] legal blood alcohol limit = 80 mg/dl (0.08%) us Yves Main MD CHEMISTRY & BLOOD GAS ORDER [place] Final Result [facility] [address] [place] [address] * (ABNORMAL) COMPREHENSIVE METABOLIC PANEL (CMP) (03/07/2022 8:42 EDT) Sodium 137 136 - 145 mmol/L 03/07/2022 9:06 [facility] Potassium 4.1 3.5 - 5.0 mmol/L 03/07/2022 9:06 [facility] Comment:Moderate hemolysis i dentified, interpret with caution as hemolysis will elevate potassium result. Chloride 105 96 - 110 mmol/L 03/07/2022 9:06 [facility] CO2 Total 22 22 - 32 mmol/L 03/07/2022 9:06 [facility] Glucose 110(H) 70 - 100 mg/dL 03/07/2022 9:06 [facility] BUN 18 10 - 26 mg/dL 03/07/2022 9:06 [facility] Comment:Moderate hemolysis i dentified, interpret with caution as results may be affected due to hemolysis. Creatinine 0.61 0.52 - 1.04 mg/dL 03/07/2022 9:06 [facility] eGFR 106 >60 mL/min/1.7 3m2 03/07/2022 9:06 [facility] Total Protein 6.1(L) 6.3 - 8.2 g/dL 03/07/2022 9:06 [facility] Comment:Moderate hemolysis i dentified, interpret with caution as results may be affected due to hemolysis. Albumin 3.0(L) 3.4 - 4.9 g/dL 03/07/2022 9:06 [facility] Comment:Moderate hemolysis i dentified, interpret with caution as results may be affected due to hemolysis. Alkaline Phosphatase 107 38 - 126 U/L 03/07/2022 9:06 [facility] Comment:Moderate hemolysis i dentified. Hemolysis will decrease ALKP result. Suggest re-evaluation if clinically indicated AST 47(H) 15 - 46 U/L 03/07/2022 9:06 [facility] Comment:Moderate hemolysis i dentified, interpret with caution as results may be affected due to hemolysis. ALT 23 <35 U/L 03/07/2022 9:06 [facility] Bilirubin, Total 0.8 <1.4 mg/dL 03/07/20 9:06 [facility] Comment:Moderate hemolysis i dentified, interpret with caution as results may be affected due to hemolysis. Calcium 8.2(L) 8.5 - 10.5 mg/dL 03/07/2022 9:06 [facility] Albumin/Globulin Ratio 1.0 1.0 - 2.5 03/07/2022 9:06 [facility] Anion Gap 10 5 - 14 03/07/2022 9:06 [facility] Blood VENOUS BLOOD / Unknown Venipuncture / Unknown 03/07/2022 8:42 EDT 03/07/2022 8:48 EDT Yves Main MD CHEMISTRY & BLOOD GAS ORDER [place] Final Result Performing Organization Address City/[facility]/ZIP Co de Phone Number [facility] [address] [place] [address] * HOLD BLUE TOP (03/07/2022 8:42 EDT) Hold Hold 03/07/2022 10:01 EDT [facility] Blood VENOUS BLOOD / Unknown Venipuncture / Unknown 03/07/2022 8:42 EDT 03/07/2022 8:48 EDT Yves Main MD LAB INFO SERVICE AND SUPPOR T & PHONE RESULT Final Result Performing Organization Address [facility] Co de Phone Number [facility] [address] [place] [address] * MAGNESIUM (03/07/2022 8:42 EDT) [facility] Magnesium 1.7 1.7 - 2.8 mg/dL 03/07/2022 9:06 EDT [facility] Comment:Moderate hemolysis i dentified, interpret with caution as results may be affected due to hemolysis. Blood VENOUS BLOOD / Unknown Venipuncture / Unknown 03/07/2022 8:42 EDT 03/07/2022 8:48 EDT Yves Main MD CHEMISTRY & BLOOD GAS ORDER [place] Final Result Performing Organization Address [facility] de Phone Number [facility] [address] [place] [address] * TROPONIN I (03/07/2022 8:42 EDT) [facility] Troponin I (ng/mL) <0.034 <0.034 ng/mL 03/07/2022 9:22 EDT [facility] Comment:Slight hemolysis rodrigo ntified, interpret with caution as results may be affected due to hemolysis. Blood VENOUS BLOOD / Unknown Venipuncture / Unknown 03/07/2022 8:42 EDT 03/07/2022 8:48 EDT Narrative [facility] - 03/07/2022 9:22 EDT The results of this assay can be falsely lowered due to the consumption of Biotin. Yves Main MD CHEMISTRY & BLOOD GAS ORDER [place] Final Result Performing Organization Address [facility] Co de Phone Number [facility] [address] [place] [address] * (ABNORMAL) COMPLETE BLOOD COUNT AND DIFFERENTIAL (03/07/2022 8:42 EDT) [facility] WBC 4.50 4.00 - 12.40 K/cmm 03/07/2022 8:53 EDT [facility] RBC 3.94 3.86 - 5.04 M/cmm 03/07/2022 8:53 EDT [facility] Hemoglobin 13.1 11.6 - 15.2 gm/dL 03/07/2022 8:53 [facility] HCT 38.6 34.9 - 44.4 % 03/07/2022 8:53 [facility] MCV 98 81 - 98 fl 03/07/2022 8:53 [facility] MCH 33.2 26.7 - 33.3 pg 03/07/2022 8:53 [facility] MCHC 33.9 32.1 - 35.9 gm/dL 03/07/2022 8:53 [facility] RDW-CV 13.0 <14.7 % 03/07/2022 8:53 [facility] RDW-SD 46.7 <50.4 fl 03/07/2022 8:53 [facility] PLT 160 141 - 377 K/cmm 03/07/2022 8:53 [facility] MPV 9.9 9.5 - 12.7 fl 03/07/2022 8:53 [facility] % Neutrophils 66.9 % 03/07/2022 8:53 [facility] % Lymphocytes 28.7 % 03/07/2022 8:53 [facility] % Monocytes 3.6 % 03/07/2022 8:53 [facility] % Eosinophils 0.0 % 03/07/2022 8:53 [facility] % Basophils 0.4 % 03/07/2022 8:53 [facility] % Immature Grans 0.4 % 03/07/20 8:53 [facility] Absolute Neutrophils 3.01 2.20 - 8.85 K/cmm 03/07/2022 8:53 [facility] Absolute Lymphocytes 1.29 1.09 - 3.30 K/cmm 03/07/2022 8:53 [facility] Absolute Monocytes 0.16 0.10 - 0.80 K/cmm 03/07/2022 8:53 [facility] Absolute Eosinophils 0.00(L) 0.03 - 0.61 K/cmm 03/07/2022 8:53 EDT [facility] ABS Basophils 0.02 0.01 - 0.11 K/cmm 03/07/2022 8:53 EDT [facility] Absolute Immature Grans 0.02 0.00 - 0.06 K/cmm 03/07/2022 8:53 EDT [facility] Type of Differential: Auto 03/07/2022 8:53 EDT [facility] Blood VENOUS BLOOD / Unknown Venipuncture / Unknown 03/07/2022 8:42 EDT 03/07/2022 8:48 EDT us Yves Main MD PACKAGES & DNA PROBE ORDERA BLES Final Result Performing Organization Address [facility]/State/ZIP Co de Phone Number [facility] [address] [place] [address] * EKG 12-LEAD (03/07/2022 8:34 EDT) 03/07/2022 8:34 EDT Narrative [facility] - 03/07/2022 13:08 EDT ? [facility] ? Test Date: ?2022-03-07 Pat Name: ? YNES WHITE ? Department: ? Room: ? Gender: ? Female ? 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 LUPE : ?1970 ? Requested By: ROZ SOTELO Order Number: [id number] ? Reading MD: ?? VANESSA ABREU MD ? Measurements Intervals ?[place] ? Rate: ? 110 ?P: ?55 WA: ? 144 ?QRS: ?44 QRSD: ? 74 ? T: ?33 QT: ? 356 ? QTc: ?481 ? Interpretive Statements Sinus tachycardia Non-specific ST changes Compared to ECG 02/22/2022 18:26:03 No significant changes I reviewed the tracing and have either agreed or edited the findings in this report. Electronically Signed On 03-07-2022 13:08:30 EDT by VANESSA ABREU MD. 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 Electronically Signed On 03-07-2022 13:08:30 EDT by VANESSA SUAREZ. Yves Main MD CARDIAC ECG ORDERABLES Shannon l Result [facility] documented in this encounter Visit Diagnoses Diagnosis Severe protein-calorie malnutrition (HCC-CMS)- Primary Other severe protein-calorie malnutrition Altered mental status, unspecified altered mental status type Urinary tract infection associated with indwelling urethral catheter, initial encounter ([facility] Severe protein-calorie malnutrition (HCC-CMS) Other severe protein-calorie malnutrition Urinary tract infection associated with indwelling urethral catheter, initial encounter ([facility]) Altered mental status, unspecified altered mental status type Focal epilepsy ([facility]) Localization-related (focal) (partial) epilepsy and epileptic syndromes with simple partial seizures, without mention of intractable epilepsy documented in this encounter Admitting Diagnoses Diagnosis UTI (urinary tract infection) Urinary tract infection, site not specified documented in this encounter Administered Medications Inactive Administered Medications - up to 3 most recent administrations Medication Order MAR Action Action Date Dose Rate Site acetaminophen (TYLENOL) tablet 975 mg 975 mg (rounded from 1,000 mg), oral, EVERY 6 HOURS PRN, Starting on Tiffanie 03/08/22 at 1342, Until 03/28/22 at 1617, Pain, Routine Given 03/16/2022 14:52 EDT 975 mg Given 03/16/2022 8:59 EDT 975 mg Given 03/12/2022 13:11 EDT 975 mg Adult Parenteral Nutrition (CPN) - Custom Without Lipids mEq sodium (Range: 60-150 mEq): 70, mEq potassium: (Range: 40-240 mEq): 55, mEq calcium: (Range: 5-30 mEq): 9, mEq magnesium (range: 5-45 mEq): 10, mmol phosphate (Range: 5-50 mmol): 20, Provider orders ions to be delivered to patient; [facility] selects total salts to be added to CPN to deliver requested dose., ~1065 KCal Discard Overfill Infuse through 0.22 micron filter. New Bag 03/16/2022 16:43 EDT 65.3 mL/hr Adult Parenteral Nutrition (CPN) - Custom Without Lipids mEq sodium (Range: 60-150 mEq): 70, mEq potassium: (Range: 40-240 mEq): 55, mEq calcium: (Range: 5-30 mEq): 9, mEq magnesium (range: 5-45 mEq): 10, mmol phosphate (Range: 5-50 mmol): 20, Provider orders ions to be delivered to patient; [facility] selects total salts to be added to CPN to deliver requested dose., ~1065 KCal Discard Overfill Infuse through 0.22 micron filter. New Bag 03/17/2022 16:08 EDT 65.3 mL/hr Adult Parenteral Nutrition (CPN) - Standard Electrolytes 52 mL/hr, central line, adult nutrition - 1600, Starting on Tiffanie 03/22/22 at 1600, Until Sat03/23/22 at 1619, Release New Bag 03/22/2022 16:20 EDT 52 mL/hr Adult Parenteral Nutrition (CPN) - Standard Electrolytes 52 mL/hr, central line, adult nutrition - 1600, Starting on Sat03/23/22 at 1600, Until 03/24/22 at 1648, Release New Bag 03/23/2022 16:49 EDT 52 mL/hr Adult Parenteral Nutrition (CPN) - Standard Electrolytes 52 mL/hr, central line, adult nutrition - 1600, Starting on 03/24/22 at 1600, Until 03/25/22 at 1704, Release New Bag 03/24/2022 17:05 EDT 52 mL/hr alteplase (CATHFLO ACTIVASE) injection 2 mg 2 mg, intercatheter, PRN, Starting on 03/14/22 at 1552, Until 03/28/22 at 1617, Line Care, Routine apixaban (ELIQUIS) tablet 2.5 mg 2.5 mg, oral, 2 TIMES DAILY, First dose on Sat03/07/22 at 2100, Until Discontinued, Routine Given 03/08/2022 20:01 EDT 2.5 mg Given 03/08/2022 9:38 EDT 2.5 mg Given 03/07/2022 20:25 EDT 2.5 mg apixaban (ELIQUIS) tablet 2.5 mg 2.5 mg, oral, 2 TIMES DAILY, First dose on Sat03/09/22 at 2100, Until Discontinued, RoutineIndications:sinus venous thrombosis Given 03/14/2022 8:22 EDT 2.5 mg Given 03/13/2022 20:37 EDT 2.5 mg Given 03/13/2022 7:46 EDT 2.5 mg apixaban (ELIQUIS) tablet 2.5 mg 2.5 mg, oral, 2 TIMES DAILY, First dose on Sat03/16/22 at 1230, Until Discontinued, RoutineIndications:prevention of venous thromboembolism recurrence Given 03/28/2022 8:40 EDT 2.5 mg Given 03/27/2022 20:18 EDT 2.5 mg Given 03/27/2022 8:20 EDT 2.5 mg aspirin chewable tablet 81 mg 81 mg, oral, DAILY, First dose on Sat03/08/22 at 0900, Until Discontinued, Routine Given 03/28/2022 8:39 EDT 81 mg Given 03/27/2022 8:20 EDT 81 mg Given 03/26/2022 9:21 EDT 81 mg benzocaine-menthoL (CEPACOL) 15-3.6 mg per lozenge 1 Lozenge 1 Lozenge, buccal, EVERY 2 HOURS PRN, Starting on 03/10/22 at 1624, Until Sat03/28/22 at 1617, Throat Pain/NG Pain, Routine Given 03/10/2022 16:3 5 EDT 1 Lozenge bisacodyL (DULCOLAX) suppository 10 mg 10 mg, rectal, DAILY PRN, Starting on 03/24/22 at 1107, Until Sat03/28/22 at 1617, Constipation, Routine Given 03/24/2022 12:14 EDT 10 mg buPROPion (WELLBUTRIN SR) SR tablet 150 mg 150 mg, oral, DAILY, First dose on Sat03/08/22 at 0900, Until Discontinued, Routine Given 03/25/2022 9:35 EDT 15 0 mg Given 03/24/2022 8:47 EDT 150 mg Given 03/23/2022 9:31 EDT 150 mg buPROPion (WELLBUTRIN SR) SR tablet 200 mg 200 mg, oral, DAILY, First dose (after last modification) on Sat03/26/22 at 0900, Until Discontinued, Routine Given 03/28/2022 8:39 EDT 200 mg Given 03/27/2022 8:20 EDT 200 mg Given 03/26/2022 9:21 EDT 200 mg calcium carbonate (TUMS) 200 mg calcium (500 mg) per chewable tablet tablet,chewable 2 Tablet 2 Tablet, oral, 4 TIMES DAILY PRN, Starting on Sat03/08/22 at 2228, Until Sat03/28/22 at 1617, Heartburn, Indigestion, Routine Given 03/24/2022 12:28 EDT 2 Tablet s Given 03/22/2022 12:35 EDT 2 Tablets Given 03/21/2022 16:31 EDT 2 Tablets calcium GLUconate in 0.9 % sodium chloride IVPB 2 g 2 g, intravenous, Administer over 120 Minutes, NOW X1, 1 dose, On Sat03/08/22 at 1945, Routine Given 03/08/2022 22:44 EDT 2 g cefTRIAXone (ROCEPHIN) 1,000 mg in sodium chloride (NS MBP) 50 mL IVPB 1,000 mg, intravenous, Administer over 30 Minutes, NOW X1, 1 dose, On Sat03/07/22 at 1045, Type of Therapy: Empiric, Suspected Indication (Select all that apply): UTI or pyelonephritis, STAT New Bag 03/07/2022 10:23 EDT 1,000 mg cefTRIAXone (ROCEPHIN) 1,000 mg in sodium chloride (NS MBP) 50 mL IVPB 1,000 mg, intravenous, Administer over 30 Minutes, EVERY 24 HOURS, 7 doses, First dose (after last reorder) on Sat03/08/22 at 1200, Last dose on Sat03/14/22 at 1200, Type of Therapy: Empiric, Suspected Indication (Select all that apply): UTI or pyelonephritis, Routine Given 03/14/2022 12:26 EDT 1,000 mg Given 03/13/2022 11:32 EDT 1,000 mg Given 03/12/2022 11:22 EDT 1,000 mg CPN - custom electrolytes with chloride mEq sodium (Range: 60-150 mEq): 70, mEq potassium: (Range: 40-240 mEq): 50, mEq calcium: (Range: 5-30 mEq): 9, mEq magnesium (range: 5-45 mEq): 12, mmol phosphate (Range: 5-50 mmol): 12, Provider orders ions to be delivered to patient; RP selects total salts to be added to CPN to deliver requested dose., ~1065 KCal Discard Overfill Infuse through 0.22 micron filter. Rate Documented 03/19/2022 12:00 EDT 65 .3 mL/hr New Bag 03/18/2022 16:40 EDT 65.3 mL/hr CPN - custom electrolytes with chloride mEq sodium (Range: 60-150 mEq): 70, mEq potassium: (Range: 40-240 mEq): 50, mEq calcium: (Range: 5-30 mEq): 9, mEq magnesium (range: 5-45 mEq): 12, mmol phosphate (Range: 5-50 mmol): 12, Provider orders ions to be delivered to patient; [facility] selects total salts to be added to CPN to deliver requested dose., ~1065 KCal Discard Overfill Infuse through 0.22 micron filter. Rate Documented 03/19/2022 18:00 EDT 65 .3 mL/hr New Bag 03/19/2022 16:19 EDT 65.3 mL/hr CPN - custom electrolytes with chloride mEq sodium (Range: 60-150 mEq): 70, mEq potassium: (Range: 40-240 mEq): 50, mEq calcium: (Range: 5-30 mEq): 9, mEq magnesium (range: 5-45 mEq): 12, mmol phosphate (Range: 5-50 mmol): 12, Provider orders ions to be delivered to patient; [facility] selects total salts to be added to CPN to deliver requested dose., ~1065 KCal Discard Overfill Infuse through 0.22 micron filter. New Bag 03/20/2022 16:17 EDT 65.3 mL/hr CPN - custom electrolytes with chloride mEq sodium (Range: 60-150 mEq): 70, mEq potassium: (Range: 40-240 mEq): 50, mEq calcium: (Range: 5-30 mEq): 9, mEq magnesium (range: 5-45 mEq): 20, mmol phosphate (Range: 5-50 mmol): 12, Provider orders ions to be delivered to patient; [facility] selects total salts to be added to CPN to deliver requested dose., ~1065 KCal Discard Overfill Infuse through 0.22 micron filter. New Bag 03/21/2022 16:23 EDT 65.4 mL/hr [facility] PPN 83 mL/hr, peripheral line, adult nutrition - 1600, Starting on Tiffanie 03/08/22 at 1600, Until Sat03/09/22 at 1648, Release Restarted 03/08/2022 22:04 EDT 83 mL/hr New Bag 03/08/2022 16:49 EDT 83 mL/hr [facility] Clinimix PPN 83 mL/hr, peripheral line, adult nutrition - 1600, Starting on 03/09/22 at 1600, Until 03/10/22 at 1636, Release New Bag 03/09/2022 16:37 EDT 83 mL/hr [facility]ix PPN 83 mL/hr, peripheral line, adult nutrition - 1600, Starting on 03/10/22 at 1600, Until 03/11/22 at 1557, Release New Bag 03/10/2022 15:58 EDT 83 mL/hr [facility] PPN 83 mL/hr, peripheral line, adult nutrition - 1600, Starting on 03/11/22 at 1600, Until 03/12/22 at 1505, Release New Bag 03/11/2022 15:06 EDT 83 mL/hr [facility]ix PPN 83 mL/hr, peripheral line, adult nutrition - 1600, Starting on 03/12/22 at 1600, Until Tu03/13/22 at 1511, Release New Bag 03/12/2022 15:12 EDT 83 mL/hr [facility] PPN 83 mL/hr, peripheral line, adult nutrition - 1600, Starting on Tu22 at 1600, Until Sat03/14/22 at 1549, Release New Bag 03/13/2022 15:50 EDT 83 mL/hr [facility] Clinimix PPN 83 mL/hr, peripheral line, adult nutrition - 1600, Starting on Sat03/14/22 at 1600, Until Sat03/15/22 at 1512, Release New Bag 03/14/2022 15:13 EDT 83 mL/hr [facility] Clinimix PPN 83 mL/hr, peripheral line, adult nutrition - 1600, Starting on Sat03/15/22 at 1600, Until Sat03/16/22 at 1117, Release New Bag 03/15/2022 16:15 EDT 83 mL/hr dextrose 5 %-0.45 % sodium chloride infusion at 100 mL/hr, 1,000 mL, intravenous, CONTINUOUS, Starting on Sat03/07/22 at 1700, Until Sat03/08/22 at 0248, Routine New Bag 03/07/2022 16:49 EDT 1,000 mL 100 mL/h r divalproex ER (DEPAKOTE ER) tablet 1,000 mg 1,000 mg, oral, NOW X1, 1 dose, On Sat03/08/22 at 1845, Routine Given 03/08/2022 18:34 EDT 1,000 mg divalproex ER (DEPAKOTE ER) tablet 500 mg 500 mg, oral, 2 TIMES DAILY, First dose on Sat03/09/22 at 0900, Until Discontinued, Routine Given 03/09/2022 9:25 EDT 500 mg dronabinoL (MARINOL) capsule 2.5 mg 2.5 mg, oral, 2 TIMES DAILY BEFORE LUNCH & DINNER, First dose on Sat03/25/22 at 1600, Until Discontinued, Routine Given 03/28/2022 11:57 EDT 2.5 mg Given 03/27/2022 16:49 EDT 2.5 mg Given 03/27/2022 11:54 EDT 2.5 mg famotidine (PEPCID) tablet 20 mg 20 mg, oral, 2 TIMES DAILY, First dose on Sat03/19/22 at 1100, Until Discontinued, Routine Given 03/28/2022 8:39 EDT 20 mg Given 03/27/2022 20:18 EDT 20 mg Given 03/27/2022 8:20 EDT 20 mg fat emulsion 20 % infusion 250 mL 250 mL, intravenous, Administer over 24 Hours, CONTINUOUS, Starting on Tiffanie 03/08/22 at 1600, Until Sat03/09/22 at 1651, Routine, Release Restarted 03/08/2022 22:04 EDT 10.42 mL/h r New Bag 03/08/2022 16:52 EDT 250 mL 10.42 mL/hr fat emulsion 20 % infusion 250 mL 250 mL, intravenous, Administer over 24 Hours, CONTINUOUS, Starting on 03/09/22 at 1600, Until 03/10/22 at 1636, Routine New Bag 03/09/2022 16:37 EDT 250 mL 10.42 mL/hr fat emulsion 20 % infusion 250 mL 250 mL, intravenous, Administer over 24 Hours, CONTINUOUS, Starting on 03/10/22 at 1600, Until 03/11/22 at 1228, Routine New Bag 03/10/2022 15:56 EDT 250 mL 10.42 mL/hr fat emulsion 20 % infusion 250 mL 250 mL, intravenous, Administer over 24 Hours, CONTINUOUS, Starting on 03/11/22 at 1600, Until 03/12/22 at 1505, Routine New Bag 03/11/2022 15:06 EDT 250 mL 10.42 mL/hr fat emulsion 20 % infusion 250 mL 250 mL, intravenous, Administer over 24 Hours, CONTINUOUS, Starting on 03/12/22 at 1600, Until 03/13/22 at 1513, Routine New Bag 03/12/2022 15:14 EDT 250 mL 10.42 mL/hr fat emulsion 20 % infusion 250 mL 250 mL, intravenous, Administer over 24 Hours, CONTINUOUS, Starting on 03/13/22 at 1600, Until 03/14/22 at 1549, Routine New Bag 03/13/2022 15:50 EDT 250 mL 10.42 mL/hr fat emulsion 20 % infusion 250 mL 250 mL, intravenous, Administer over 24 Hours, CONTINUOUS, Starting on 03/14/22 at 1600, Until Tiffanie 03/15/22 at 1511, Routine New Bag 03/14/2022 15:12 EDT 250 mL 10.42 mL/hr fat emulsion 20 % infusion 250 mL 250 mL, intravenous, Administer over 24 Hours, CONTINUOUS, Starting on Tiffanie 03/15/22 at 1600, Until Sat03/16/22 at 1117, Routine New Bag 03/15/2022 16:15 EDT 250 mL 10.42 mL/hr fat emulsion 20 % infusion 250 mL 250 mL, intravenous, Administer over 24 Hours, adult nutrition - 1600, Starting on 03/16/22 at 1600, Until 03/17/22 at 1649, Routine, Release New Bag 03/16/2022 16:50 EDT 250 mL 10.42 mL/hr Port fat emulsion 20 % infusion 250 mL 250 mL, intravenous, Administer over 24 Hours, CONTINUOUS, Starting on 03/17/22 at 1600, Until 03/18/22 at 1608, Routine New Bag 03/17/2022 16:09 EDT 250 mL 10.42 mL/hr fat emulsion 20 % infusion 250 mL 250 mL, intravenous, Administer over 24 Hours, CONTINUOUS, Starting on 03/18/22 at 1600, Until 03/19/22 at 1639, Routine, Release Rate Documented 03/19/2022 12:00 EDT 10.42 mL/hr New Bag 03/18/2022 16:40 EDT 250 mL 10.42 mL/hr fluticasone propionate (FLONASE) nasal spray 100 mcg 100 mcg, nasal - both, DAILY, First dose on 03/10/22 at 1645, Until Discontinued, Routine Given 03/28/2022 8:39 EDT 10 0 mcg Given 03/27/2022 8:28 EDT 100 mcg Given 03/26/2022 9:21 EDT 100 mcg gadoterate meglumine solution 1-30 mL 1-30 mL, intravenous, Once in imaging, 1 dose, Starting on Sat03/07/22 at 1547, Until Sat03/07/22 at 1548, Routine, Imaging Protocol Orders Given 03/07/2022 15:48 EDT 12 mL gadoterate meglumine solution 12 mL 12 mL, intravenous, Once in imaging, 1 dose, Starting on Tiffanie 03/08/22 at 2139, Until Tiffanie 03/08/22 at 2129, Routine Given 03/08/2022 21:29 EDT 12 mL heparin (PF) lock flush 100 Units 100 Units, intercatheter, PRN, Starting on 03/28/22 at 1206, Until Sat03/28/22 at 1617, Line Care, Routine hydrOXYzine (ATARAX) tablet 25 mg 25 mg, oral, EVERY 4 HOURS PRN, Starting on Sat03/25/22 at 1119, Until Sat03/28/22 at 1617, Anxiety, Routine Given 03/25/2022 12:20 EDT 25 mg lacosamide (VIMPAT) oral solution 25 mg 25 mg, oral, 2 TIMES DAILY, 2 doses, First dose (after last modification) on Sat03/15/22 at 2100, Last dose on Sat03/16/22 at 0900, Routine Given 03/16/2022 9:01 EDT 25 mg Given 03/15/2022 21:14 EDT 25 mg lacosamide (VIMPAT) oral solution 50 mg 50 mg, oral, 2 TIMES DAILY, First dose on Sat03/07/22 at 2100, Until Discontinued, Routine Given 03/15/2022 8:41 EDT 50 mg Given 03/14/2022 8:23 EDT 50 mg Given 03/13/2022 20:37 EDT 50 mg lactated ringers (LR) infusion at 150 mL/hr, 1,000 mL, intravenous, CONTINUOUS, Starting on Sat03/07/22 at 1145, Until Sat03/07/22 at 1641, Routine New Bag 03/07/2022 16:40 EDT 1,000 mL 150 mL/h r New Bag 03/07/2022 11:58 EDT 1,000 mL 150 mL/hr lactated ringers BOLUS 1,000 mL 1,000 mL, intravenous, NOW X1, 1 dose, On Sat03/07/22 at 0930, STAT Given 03/07/2022 9:22 EDT 1,000 mL lactulose (CHRONULAC) 20 gram/30 mL solution 30 mL 30 mL, oral, DAILY, First dose on Sat03/07/22 at 2015, Until Discontinued, Routine Given 03/28/2022 8:39 EDT 30 mL Given 03/27/2022 8:20 EDT 30 mL Given 03/26/2022 9:21 EDT 30 mL lactulose (CHRONULAC) 20 gram/30 mL solution 30 mL 30 mL, oral, NOW X1, 1 dose, On 03/24/22 at 1130, Routine Given 03/24/2022 12:00 EDT 30 mL lidocaine (PF) 10 mg/mL (1 %) injection 5 mg 5 mg, intradermal, PRN, 2 doses, Starting on Sat03/14/22 at 1552, Until Sat03/28/22 at 1617, line placement, Routine LORazepam (ATIVAN) injection 0.5 mg 0.5 mg, intravenous, Once PRN Procedure, 1 dose, Starting on Sat03/07/22 at 1451, Until Sat03/07/22 at 1501, MRI, Routine Given 03/07/2022 15:01 EDT 0.5 mg LORazepam (ATIVAN) injection 0.5 mg 0.5 mg, intravenous, EVERY 4 HOURS PRN, Starting on Sat03/08/22 at 1635, Until Sat03/13/22 at 2015, Anxiety, Routine Given 03/13/2022 17:01 EDT 0.5 mg Given 03/13/2022 2:11 EDT 0.5 mg Given 03/11/2022 16:25 EDT 0.5 mg LORazepam (ATIVAN) injection 1 mg 1 mg, intravenous, EVERY 4 HOURS PRN, Starting on Sat03/13/22 at 2015, Until Sat03/14/22 at 0914, Anxiety, Routine Given 03/14/2022 7:55 EDT 1 mg Given 03/13/2022 21:45 EDT 1 mg LORazepam (ATIVAN) injection 1 mg 1 mg, intravenous, EVERY 4 HOURS, First dose (after last modification) on Sat03/14/22 at 1200, Until Discontinued, Routine Given 03/14/2022 12:27 EDT 1 mg LORazepam (ATIVAN) injection 1 mg 1 mg, intravenous, EVERY 6 HOURS, 3 doses, First dose (after last modification) on Sat03/14/22 at 1830, Last dose on Sat03/15/22 at 0630, Routine Given 03/15/2022 6:00 EDT 1 mg Given 03/15/2022 0:04 EDT 1 mg Given 03/14/2022 18:40 EDT 1 mg magnesium sulfate 2 g in water 50 mL 2 g, intravenous, Administer over 30 Minutes, NOW X1, 1 dose, On Sat03/08/22 at 0815, Routine New Bag 03/08/2022 1 3:10 EDT 2 g magnesium sulfate 2 g in water 50 mL 2 g, intravenous, Administer over 30 Minutes, EVERY HOUR, 2 doses, First dose on Sat03/14/22 at 0900, Last dose on Sat03/14/22 at 1000, Routine New Bag 03/14/2022 10:17 EDT 2 g New Bag 03/14/2022 9:05 EDT 2 g magnesium sulfate 2 g in water 50 mL 2 g, intravenous, Administer over 30 Minutes, NOW X1, 1 dose, On Sat03/18/22 at 1800, Routine New Bag 03/18/2022 1 8:00 EDT 2 g magnesium sulfate 2 g in water 50 mL 2 g, intravenous, Administer over 30 Minutes, NOW X1, 1 dose, On Sat03/21/22 at 0900, Routine New Bag 03/21/2022 9:06 EDT 2 g magnesium sulfate 2 g in water 50 mL 2 g, intravenous, Administer over 30 Minutes, NOW X1, 1 dose, On Sat03/23/22 at 0900, Routine New Bag 03/23/2022 9:33 EDT 2 g magnesium sulfate 2 g in water 50 mL 2 g, intravenous, Administer over 30 Minutes, NOW X1, 1 dose, On Sat03/24/22 at 0845, Routine New Bag 03/24/2022 8:46 EDT 2 g magnesium sulfate 2 g in water 50 mL 2 g, intravenous, Administer over 30 Minutes, NOW X1, 1 dose, On Sat03/25/22 at 1000, Routine New Bag 03/25/2022 11:05 EDT 2 g magnesium sulfate 2 g in water 50 mL 2 g, intravenous, Administer over 30 Minutes, EVERY HOUR, 2 doses, First dose (after last reorder) on Sat03/26/22 at 0900, Last dose on Sat03/26/22 at 1000, Routine New Bag 03/26/2022 10:32 EDT 2 g New Bag 03/26/2022 9:27 EDT 2 g magnesium sulfate 2 g in water 50 mL 2 g, intravenous, Administer over 30 Minutes, EVERY HOUR, 2 doses, First dose on Sat03/28/22 at 0815, Last dose on Sat03/28/22 at 0900, Routine New Bag 03/28/2022 9:45 EDT 2 g New Bag 03/28/2022 8:36 EDT 2 g melatonin tablet 3 mg 3 mg, oral, AT BEDTIME, First dose on 03/17/22 at 0200, Until Discontinued, Routine Given 03/27/2022 20:18 EDT 3 mg Given 03/26/2022 20:34 EDT 3 mg Given 03/25/2022 20:31 EDT 3 mg metoclopramide (REGLAN) injection 5 mg 5 mg, intravenous, EVERY 6 HOURS PRN, Starting on Sat03/07/22 at 1124, Until Sat03/07/22 at 1944, Nausea, Routine Given 03/07/2022 13:10 EDT 5 mg metoclopramide (REGLAN) injection 5 mg 5 mg, intravenous, EVERY 6 HOURS, First dose (after last modification) on Sat03/07/22 at 2000, Until Discontinued, Routine Given 03/19/2022 2:48 EDT 5 mg Given 03/18/2022 20:37 EDT 5 mg Given 03/18/2022 14:24 EDT 5 mg metoclopramide HCl (REGLAN) tablet 5 mg 5 mg, oral, 3 TIMES DAILY BEFORE MEALS, First dose (after last modification) on Sat03/19/22 at 0815, Until Discontinued, Routine Given 03/28/2022 11:57 EDT 5 mg Given 03/28/2022 6:24 EDT 5 mg Given 03/27/2022 16:49 EDT 5 mg metoprolol TARtrate (LOPRESSOR) tablet 25 mg 25 mg, oral, 2 TIMES DAILY, First dose on Sat03/18/22 at 1800, Until Discontinued, STAT Given 03/20/2022 9:23 EDT 25 mg Given 03/19/2022 20:34 EDT 25 mg Given 03/19/2022 9:29 EDT 25 mg metoprolol TARtrate (LOPRESSOR) tablet 50 mg 50 mg, oral, 2 TIMES DAILY, First dose (after last modification) on Tu03/20/22 at 2100, Until Discontinued, STAT Given 03/28/2022 8:39 EDT 50 mg Given 03/27/2022 20:19 EDT 50 mg Given 03/27/2022 8:20 EDT 50 mg nicotine (NICOTROL) 10 mg inhaler kit 1 Inhaler 1 Inhaler, inhalation, EVERY 2 HOURS PRN, Starting on Sat03/16/22 at 1353, Until Sat03/28/22 at 1617, Smoking Cessation, Routine Given 03/16/2022 14:52 EDT 1 Inhaler OLANZapine (ZYPREXA) disintegrating tablet 5 mg 5 mg, oral, NOW X1, 1 dose, On Sat03/13/22 at 2045, Routine Given 03/13/2022 20:37 EDT 5 mg ondansetron (PF) (ZOFRAN) injection 4 mg 4 mg, intravenous, EVERY 4 HOURS PRN, Starting on Sat03/07/22 at 2254, Until Sat03/28/22 at 1617, Nausea, Routine Given 03/07/2022 23:01 EDT 4 mg OXcarbazepine (TRILEPTAL) tablet 300 mg 300 mg, oral, 2 TIMES DAILY, First dose on Sat03/12/22 at 2230, Until Discontinued, Routine Given 03/14/2022 8:23 EDT 300 mg Given 03/13/2022 20:37 EDT 300 mg Given 03/13/2022 7:46 EDT 300 mg OXcarbazepine (TRILEPTAL) tablet 300 mg 300 mg, oral, NOW X1, 1 dose, On Sat03/12/22 at 1915, Routine Given 03/12/2022 21:19 EDT 300 mg polyethylene glycol 3350 (MIRALAX) packet 17 g 17 g, oral, DAILY PRN, Starting on Sat03/07/22 at 1240, Until Sat03/28/22 at 1617, Constipation, Routine Given 03/24/2022 12:14 EDT 17 g potassium chloride in water infusion 20 mEq 20 mEq, intravenous, EVERY 2 HOURS, 3 doses, First dose (after last modification) on Sat03/08/22 at 0815, Last dose on Sat03/08/22 at 1200, Routine Given 03/08/2022 13:13 EDT 20 mEq Given 03/08/2022 13:10 EDT 20 mEq Given 03/08/2022 9:30 EDT 20 mEq potassium chloride in water infusion 20 mEq 20 mEq, intravenous, NOW X1, 1 dose, On Sat03/08/22 at 1430, Routine Given 03/08/2022 15:14 EDT 20 mEq potassium chloride in water infusion 20 mEq 20 mEq, intravenous, NOW X1, 1 dose, On Tiffanie 03/08/22 at 1630, Routine Given 03/08/2022 16:48 EDT 20 mEq pregabalin (LYRICA) capsule 100 mg 100 mg, oral, 2 TIMES DAILY, First dose on Sat03/17/22 at 0900, Until Discontinued, Routine Given 03/28/2022 8:39 EDT 10 0 mg Given 03/27/2022 20:18 EDT 100 mg Given 03/27/2022 8:20 EDT 100 mg pregabalin (LYRICA) capsule 50 mg 50 mg, oral, 2 TIMES DAILY, First dose on Sat03/14/22 at 2100, Until Discontinued, Routine Given 03/15/2022 8:58 EDT 50 mg pregabalin (LYRICA) capsule 75 mg 75 mg, oral, 2 TIMES DAILY, First dose (after last modification) on Tiffanie 03/15/22 at 2100, Until Discontinued, Routine Given 03/16/2022 9:00 EDT 75 mg Given 03/15/2022 21:18 EDT 75 mg pregabalin (LYRICA) capsule 75 mg 75 mg, oral, 2 TIMES DAILY, 1 dose, First dose (after last modification) on Sat03/16/22 at 2100, Routine Given 03/16/2022 21:20 EDT 75 mg propRANolol (INDERAL) tablet 10 mg 10 mg, oral, 2 TIMES DAILY, First dose on Sat03/09/22 at 1200, Until Discontinued, Routine Given 03/18/2022 8:41 EDT 10 mg Given 03/17/2022 20:25 EDT 10 mg Given 03/17/2022 9:08 EDT 10 mg ramelteon (ROZEREM) tablet 8 mg 8 mg, oral, AT BEDTIME, First dose on Sat03/07/22 at 2100, Until Discontinued, Routine Given 03/27/2022 20:18 EDT 8 mg Given 03/26/2022 20:34 EDT 8 mg Given 03/25/2022 20:32 EDT 8 mg senna (SENOKOT) tablet 2 Tablet 2 Tablet, oral, AT BEDTIME, First dose (after last modification) on Sat03/07/22 at 2100, Until Discontinued, Routine Given 03/17/2022 20:05 EDT 2 Tablets Given 03/16/2022 21:21 EDT 2 Tablets Given 03/14/2022 20:17 EDT 2 Tablets senna (SENOKOT) tablet 2 Tablet 2 Tablet, oral, 2 TIMES DAILY, First dose (after last modification) on Sat03/18/22 at 2100, Until Discontinued, Routine Given 03/28/2022 8:39 EDT 2 Tablets Given 03/27/2022 20:18 EDT 2 Tablets Given 03/27/2022 8:20 EDT 2 Tablets sodium chloride 3% BOLUS 100 mL 100 mL, intravenous, NOW X1, 1 dose, On Sat03/14/22 at 0900, STAT Given 03/14/2022 10:44 EDT 100 mL sodium chloride 3% BOLUS 100 mL 100 mL, intravenous, NOW X1, 1 dose, On Sat03/14/22 at 1530, STAT Given 03/14/2022 15:47 EDT 100 mL sodium chloride 3% BOLUS 100 mL 100 mL, intravenous, NOW X1, 1 dose, On Sat03/14/22 at 1945, STAT Given 03/14/2022 19:26 EDT 100 mL IV sodium chloride tablet 1 g 1 g, oral, 3 TIMES DAILY WITH MEALS, First dose on Tiffanie 03/15/22 at 0900, Until Discontinued, Routine Given 03/22/2022 12:31 EDT 1 g Given 03/22/2022 8:49 EDT 1 g Given 03/21/2022 16:32 EDT 1 g sodium chloride tablet 1 g 1 g, oral, 2 TIMES DAILY WITH BREAKFAST & DINNER, First dose (after last modification) on Tiffanie 03/22/22 at 1700, Until Discontinued, Routine Given 03/28/2022 8:40 EDT 1 g Given 03/27/2022 16:49 EDT 1 g Given 03/27/2022 8:22 EDT 1 g thiamine (VITAMIN B-1) 100 mg in sodium chloride (NS) 0.9 % 50 mL IVPB 100 mg, intravenous, Administer over 30 Minutes, DAILY, First dose on Tiffanie 03/08/22 at 1215, Until Discontinued, Routine Given 03/14/2022 11:24 EDT 100 mg IV Given 03/13/2022 9:22 EDT 100 mg Given 03/12/2022 9:19 EDT 100 mg valproate (DEPACON) 500 mg in sodium chloride (NS) 0.9 % 100 mL IVPB 500 mg, intravenous, Administer over 60 Minutes, EVERY 12 HOURS, 14 doses, First dose (after last modification) on Sat03/09/22 at 2100, Last dose on Sat03/16/22 at 0900, Routine Given 03/12/2022 8:31 EDT 500 mg Given 03/11/2022 20:04 EDT 500 mg Given 03/11/2022 9:18 EDT 500 mg zonisamide (ZONEGRAN) capsule 200 mg 200 mg, oral, DAILY, First dose on Tiffanie 03/08/22 at 0900, Until Discontinued, Routine Given 03/13/2022 20:37 EDT 200 mg Given 03/12/2022 21:18 EDT 200 mg Given 03/11/2022 20:03 EDT 200 mg documented in this encounter Discontinued Medications Medication Sig Discontinue Reason Start Date End Da te QUEtiapine (SEROQUEL) 50 mg tablet Take 50 mg by mouth at bedtime. 03/07/2022 pregabalin (LYRICA) 100 mg capsule Take 1 capsule by mouth 2 times daily. Daily Max: 200 mg 03/28/2022 03/28/2022 dronabinoL (MARINOL) 2.5 mg capsule Take 1 capsule by mouth 2 times daily before lunch and dinner. Daily Max: 5 mg 03/28/2022 03/28/2022 docusate sodium (COLACE) 100 mg capsule Take 1 Cap by mouth 2 times daily. 07/14/2020 03/28/2022 OLANZapine (ZYPREXA) 5 mg tablet Take 5 mg by mouth daily. Filled on 01/08/22 #90 tablets, per caregiver pt may take an extra' dose if needed 08/02/2020 03/28/2022 ketotifen (ZADITOR) 0.025 % (0.035 %) ophthalmic solution Not filling 08/09/2020 03/28/2022 diclofenac sodium 1 % gel APPLY 2 GRAMS TO THE AFFECTED JOINT BID 08/10/2020 03/28/2022 buPROPion (WELLBUTRIN SR) 150 mg SR tablet TK 1 T PO QD IN THE MORNING 10/17/2020 03/28/2022 OLANZapine (ZYPREXA) 10 mg tablet TAKE 1 TABLET BY MOUTH EVERY DAY AT BEDTIME. TAKE WITH 5MG TABLET FOR TOTAL AT BEDTIME DOSE OF 15MG. 09/01/2021 03/28/2022 zonisamide (ZONEGRAN) 100 mg capsule Take 200 mg by mouth daily. 03/28/2022 magnesium oxide 240 mg magnesium powder in packet Take 1 Packet by mouth 2 times daily. 02/02/2022 03/28/2022 lamoTRIgine (LAMICTAL) 25 mg tablet Weeks 1-2: take 1 25mg tablet twice a day. Weeks 3-4 take 2 25mg tablets twice a day. New prescription 100mg tabs, take 1 tab twice a day from week 5 and on. 02/16/2022 03/28/2022 lamoTRIgine (LAMICTAL) 100 mg tablet Take 1 Tablet by mouth 2 times daily. 03/16/2022 03/28/2022 lacosamide (VIMPAT) 50 mg tablet Take 1 Tablet by mouth 2 times daily. Daily Max: 100 mg 03/02/2022 03/28/2022 OLANZapine (ZYPREXA) 20 mg tablet Take 20 mg by mouth at bedtime. Filled on 02/01/22, confirmed with pharmacy; take 1 tablet at hs' 03/28/2022 documented as of this encounter Historical Medications * This list may reflect changes made after this encounter. cholecalciferol, Vitamin D3, 25 mcg (1,000 unit) tablet Take 1 Tablet by mouth daily. Reported by caregiver 4 OLANZapine (ZYPREXA) 20 mg tablet Take 20 mg by mouth at bedtime. Filled on 02/01/22, confirmed with pharmacy; take 1 tablet at hs' 2 added in this encounter Active and Recently Administered Medications Times are shown in EDT. Scheduled Medication Order 03/26/2022 03/27/2022 03/28/2022 apixaban (ELIQUIS) tablet 2.5 mg 2.5 mg, oral, 2 TIMES DAILY, First dose on Sat03/16/22 at 1230, Until Discontinued, Routine 0921 (Given - Provider: Viviana Mathis RN)2033 (Given - Provider: Ivonne Leija RN) 0820 (Given - Provider: Milly Islas RN)2017 (Given - Provider: Ivonne Leija RN) 0840 (Given - Provider: Milly Islas RN) aspirin chewable tablet 81 mg 81 mg, oral, DAILY, First dose on Tiffanie 03/08/22 at 0900, Until Discontinued, Routine 0921 (Given - Provider: Viviana Mathis RN) 08 (Given - Provider: Milly Islas RN) 0839 (Given - Provider: Milly Islas RN) buPROPion (WELLBUTRIN SR) SR tablet 200 mg 200 mg, oral, DAILY, First dose (after last modification) on 03/26/22 at 0900, Until Discontinued, Routine 920 (Given - Provider: Viviana Mathis RN) 08 (Given - Provider: Milly Islas RN) 0839 (Given - Provider: Milly Islas RN) dronabinoL (MARINOL) capsule 2.5 mg 2.5 mg, oral, 2 TIMES DAILY BEFORE LUNCH & DINNER, First dose on Sat03/25/22 at 1600, Until Discontinued, Routine 1032 (Given - Provider: Viivana Mathis RN)1710 (Given - Provider: Viviana Mathis RN) 1154 (Given - Provider: Milly Islas RN)1649 (Given - Provider: Milly Islas RN) 1157 (Given - Provider: Milly Islas RN)1600 (Canceled Entry - Provider: Batch Job User Admin - Comment: Automatically canceled at discontinue of medication order) famotidine (PEPCID) tablet 20 mg 20 mg, oral, 2 TIMES DAILY, First dose on Sat03/19/22 at 1100, Until Discontinued, Routine 09 (Given - Provider: Viviana Mathis RN)2033 (Given - Provider: Ivonne Leija RN) 08 (Given - Provider: Milly Islas RN)2017 (Given - Provider: Ivonne Leija RN) 0839 (Given - Provider: Milly Islas RN) fluticasone propionate (FLONASE) nasal spray 100 mcg 100 mcg, nasal - both, DAILY, First dose on 03/10/22 at 1645, Until Discontinued, Routine 09 (Given - Provider: Viviana Mathis RN) 0828 (Given - Provider: Milly Islas RN) 0839 (Given - Provider: Milly Islas RN) lactulose (CHRONULAC) 20 gram/30 mL solution 30 mL 30 mL, oral, DAILY, First dose on Sat03/07/22 at 2015, Until Discontinued, Routine 0921 (Given - Provider: Viviana Mathis RN) 0820 (Given - Provider: Milly Islas RN) 0839 (Given - Provider: Milly Islas RN) magnesium sulfate 2 g in water 50 mL (COMPLETED) 2 g, intravenous, Administer over 30 Minutes, EVERY HOUR, 2 doses, First dose (after last reorder) on Sat03/26/22 at 0900, Last dose on Sat03/26/22 at 1000, Routine 0927 (New Bag - Provider: Viviana Mathis RN)1032 (New Bag - Provider: Viviana Mathis RN) magnesium sulfate 2 g in water 50 mL (COMPLETED) 2 g, intravenous, Administer over 30 Minutes, EVERY HOUR, 2 doses, First dose on Sat03/28/22 at 0815, Last dose on Sat03/28/22 at 0900, Routine 0836 (New Bag - Provider: Milly Islas RN)0945 (New Bag - Provider: Milly Islas RN) melatonin tablet 3 mg 3 mg, oral, AT BEDTIME, First dose on Sat03/17/22 at 0200, Until Discontinued, Routine 2033 (Given - Provider: Ivonne Leija RN) 2018 (Given - Provider: Ivonne Leija RN) metoclopramide HCl (REGLAN) tablet 5 mg 5 mg, oral, 3 TIMES DAILY BEFORE MEALS, First dose (after last modification) on Sat03/19/22 at 0815, Until Discontinued, Routine 0610 (Given - Provider: Adilene Ambrose RN)1032 (Given - Provider: Viviana Mathis RN)1709 (Given - Provider: Viviana Mathis RN) 0601 (Given - Provider: Ivonne Leija RN)1154 (Given - Provider: Milly Islas RN)1649 (Given - Provider: Milly Islas RN) 0624 (Given - Provider: Ivonne Leija RN)1157 (Given - Provider: Milly Islas RN)1600 (Canceled Entry - Provider: Batch Job User Admin - Comment: Automatically canceled at discontinue of medication order) metoprolol TARtrate (LOPRESSOR) tablet 50 mg 50 mg, oral, 2 TIMES DAILY, First dose (after last modification) on Sat03/20/22 at 2100, Until Discontinued, STAT 0920 (Given - Provider: Viviana Mathis RN)2033 (Given - Provider: Ivonne Leija RN) 08 (Given - Provider: Milly Islas RN)2018 (Given - Provider: Ivonne Leija RN) 0839 (Given - Provider: Milly Islas RN) pregabalin (LYRICA) capsule 100 mg 100 mg, oral, 2 TIMES DAILY, First dose on Sat03/17/22 at 0900, Until Discontinued, Routine 0921 (Given - Provider: Viviana Mathis RN)2033 (Given - Provider: Ivonne Leija RN) 08 (Given - Provider: Milly Islas RN)2017 (Given - Provider: Ivonne Leija RN) 0839 (Given - Provider: Milly Islas RN) ramelteon (ROZEREM) tablet 8 mg 8 mg, oral, AT BEDTIME, First dose on Sat03/07/22 at 2100, Until Discontinued, Routine 2033 (Given - Provider: Ivonne Leija RN) 2017 (Given - Provider: Ivonne Leija RN) senna (SENOKOT) tablet 2 Tablet 2 Tablet, oral, 2 TIMES DAILY, First dose (after last modification) on Sat03/18/22 at 2100, Until Discontinued, Routine 0920 (Given - Provider: Viviana Mathis RN)2031 (Given - Provider: Ivonne Leija RN) 0820 (Given - Provider: Milly Islas RN)2017 (Given - Provider: Ivonne Leija RN) 0839 (Given - Provider: Milly Islas RN) sodium chloride tablet 1 g 1 g, oral, 2 TIMES DAILY WITH BREAKFAST & DINNER, First dose (after last modification) on Tiffanie 03/22/22 at 1700, Until Discontinued, Routine 0920 (Given - Provider: Viviana Mathis RN)1710 (Given - Provider: Viviana Mathis RN) 0822 (Given - Provider: Milly Islas RN)1649 (Given - Provider: Milly Islas RN) 0840 (Given - Provider: Milly Islas RN) PRN Medication Order 03/26/2022 03/27/2022 03/28/2022 acetaminophen (TYLENOL) tablet 975 mg 975 mg (rounded from 1,000 mg), oral, EVERY 6 HOURS PRN, Starting on Tiffanie 03/08/22 at 1342, Until Sat03/28/22 at 1617, Pain, Routine alteplase (CATHFLO ACTIVASE) injection 2 mg 2 mg, intercatheter, PRN, Starting on Sat03/14/22 at 1552, Until Sat03/28/22 at 1617, Line Care, Routine benzocaine-menthoL (CEPACOL) 15-3.6 mg per lozenge 1 Lozenge 1 Lozenge, buccal, EVERY 2 HOURS PRN, Starting on 03/10/22 at 1624, Until Sat03/28/22 at 1617, Throat Pain/NG Pain, Routine bisacodyL (DULCOLAX) suppository 10 mg 10 mg, rectal, DAILY PRN, Starting on 03/24/22 at 1107, Until Sat03/28/22 at 1617, Constipation, Routine calcium carbonate (TUMS) 200 mg calcium (500 mg) per chewable tablet tablet,chewable 2 Tablet 2 Tablet, oral, 4 TIMES DAILY PRN, Starting on Tiffanie 03/08/22 at 2228, Until Sat03/28/22 at 1617, Heartburn, Indigestion, Routine heparin (PF) lock flush 100 Units 100 Units, intercatheter, PRN, Starting on Sat03/28/22 at 1206, Until Sat03/28/22 at 1617, Line Care, Routine hydrOXYzine (ATARAX) tablet 25 mg 25 mg, oral, EVERY 4 HOURS PRN, Starting on 03/25/22 at 1119, Until Sat03/28/22 at 1617, Anxiety, Routine lidocaine (PF) 10 mg/mL (1 %) injection 2 mg 2 mg, intradermal, PRN, 4 doses, Starting on Sat03/07/22 at 1240, Until Sat03/28/22 at 1617, Other, peripheral intravenous catheter placement, Routine lidocaine (PF) 10 mg/mL (1 %) injection 5 mg 5 mg, intradermal, PRN, 2 doses, Starting on Sat03/14/22 at 1552, Until Sat03/28/22 at 1617, line placement, Routine nicotine (NICOTROL) 10 mg inhaler kit 1 Inhaler 1 Inhaler, inhalation, EVERY 2 HOURS PRN, Starting on Sat03/16/22 at 1353, Until Sat03/28/22 at 1617, Smoking Cessation, Routine ondansetron (PF) (ZOFRAN) injection 4 mg 4 mg, intravenous, EVERY 4 HOURS PRN, Starting on Sat03/07/22 at 2254, Until Sat03/28/22 at 1617, Nausea, Routine polyethylene glycol 3350 (MIRALAX) packet 17 g 17 g, oral, DAILY PRN, Starting on Sat03/07/22 at 1240, Until Sat03/28/22 at 1617, Constipation, Routine documented in this encounter Orders Medications Ordered That Babak ht Not Have Been Administered Count Last Ordered Date First Ordered Date heparin (PF) lock flush 100 Units 1 022 dextrose 10 % (D10W) infusion 2 03/22/2022 03/16/2022 metoclopramide HCl (REGLAN) tablet 5 mg 1 0 03/19/2022 Adult Parenteral Nutrition ( CPN) - Custom Without Lipids 1 03/18/2022 [facility] Clinim[facility] [place]PN 1 03/16/2022 [facility] RX CPN - No Chloride 1 03/16/2022 fat emulsion 20 % infusion 250 mL 5 022 03/11/2022 alteplase (CATHFLO ACTIVASE) injection 2 mg 1 03/14/2022 lidocaine (PF) 10 mg/mL (1 % ) injection 5 mg 1 03/14/2022 NONFORMULARY MEDICATION 600 mg 1 03/12/2022 valproate (DEPACON) 500 mg i n sodium chloride (NS) 0.9 % 100 mL IVPB 1 03/09/2022 valproate (DEPACON) injection 500 mg 1 02/23 dextrose 5 % (D5W) infusion 1 03/08/2022 potassium chloride in water infusion 20 mEq 2 03/08/2022 bisacodyL (DULCOLAX) suppository 10 mg 1 lidocaine (PF) 10 mg/mL (1 % ) injection 2 mg 1 03/07/2022 OLANZapine (ZYPREXA) tablet 5 mg 1 03/07/20 senna (SENOKOT) tablet 1 Tablet 1 Diet Count Last Ordered Date First Orde red Date DISCHARGE DIET 1 03/28/2022 Nursing Count Last Ordered Date First Orde red Date ACTIVITY INSTRUCTIONS 1 03/28/2022 BATHING INSTRUCTIONS 1 03/28/2022 DRIVING INSTRUCTIONS 1 03/28/2022 MEASURE WEIGHT 1 03/08/2022 TAP WATER ENEMA 1 03/08/2022 ED TELEMETRY MONITORING 1 03/07/2022 STRICT INTAKE AND OUTPUT 1 03/07/2022 VTE PHARMACOLOGIC PROPHYLAXI S CURRENTLY ORDERED OR ON ALTERNATIVE THER 1 03/07/2022 Consult Count Last Ordered Date First Orde red Date CONSULT NUTRITION 2 03/08/2022 Admission Count Last Ordered Date First Orde red Date ADMIT TO INPATIENT 1 03/07/2022 Transfer Count Last Ordered Date First Orde red Date ED BED REQUEST 2 03/07/2022 Discharge Count Last Ordered Date First Orde red Date DISCHARGE PATIENT 1 03/28/2022 Legal Count Last Ordered Date First Orde red Date MISCELLANEOUS DISCHARGE INSTRUCTIONS 2 02/2022 Consult to Neurology Count Last Ordered Date Fi rst Ordered Date CONSULT NEUROLOGY 1 03/07/2022 ADT Patient Update Count Last Ordered Date Firs t Ordered Date UPDATE PATIENT STATUS 2 03/26/20222021 documented in this encounter Additional Health Concerns Infection Onset Date Last Indicated Resolved Time R/O COVID-19 Comment:Negative result 03/07/2022 03/07/2022 03/07/2022 9:37 EDT documented as of this encounter Care Teams Enrobing Machine Feeder Relationship Specialty Start Date End Date Romario Hairston MD [facility] [address] [place] [id number] PCP - General 07/06/20 documented as of this encounter
--- OUTSIDE RECORDS SUMMARY | 2024-12-03 15:56 | XMS_ITS | Encounter Summary ---
Author Organization [facility] Address [address] [place] [address] Care Team Providers Care Quality Nurse Name Role Phone Romario Hairston MD Primary Care Provider [phone]- [phone] Reason for Visit * Reason Onset Date Comments Other 03/05/2022 Encounter Details Date Type Department Care Team (Late st Contact Info) Description 03/05/2022 Telephone [facility] [place] [address] [place] [address] Brayan Polk MD [address] [facility] [address] [place] [address] Other Social History Tobacco Use [...] Lisa Muro RN documented in this encounter Miscellaneous Notes * Telephone Encounter - Vashti Grover RN - 03/07/2022 1327 EDT Spoke with Ever. He did not restart the lamotrigine. He stated that Mary Grace is in the ER right now and Dr. Polk is aware. * Telephone Encounter - Brayan Polk MD - 03/07/2022 0840 EDT You are correct, thanks for your attention to detail. I will edit my prior note. * Telephone Encounter - Vashti Grover RN - 03/07/2022 0813 EDT Just clarifying - continue zonisamide and lacosamide. Do not restart lamotrigine. Correct? * Telephone Encounter - Brayan Polk MD - 03/06/2022 1748 EDT No not now. She's having enough unexplained symptoms I don't want to complicate matters. The addition of lamotrigine was to see if we could possibly eventually get her off lacosamide or zonisamide incase one of them is causing her side effects, but it seems at the same time we added lamotrigine she got worse symptomatically. For now continue just zonisamide and EDIT: LACOSAMIDE. Please ask Ever to call in another week to see if she's feeling better, and especially to make sure the rash goes away. * Telephone Encounter - Vashti Grover RN - 03/06/2022 1450 EDT Do you want to restart the lamotrigine? * Telephone Encounter - Angie Haley - 03/06/2022 1358 EDT Ever called back again today. He wants to know when he should start Mary Grace on new medication again.He also said her face was somewhat swollen, numb and tingly.Has hard time drinking. * Telephone Encounter - Vashti Grover RN - 03/05/2022 1535 EDT Note that ED note from 03/03says papule like rash over cheeks. Patient only vomited once since stopping the lamotrigine. How would you like to proceed? * Telephone Encounter - Angie Haley - 03/05/2022 1318 EDT Ever called said mary grace was doing ok off new medication. She ended up in ED this weekend. Bladder issues, went home with catheter. documented in this encounter Plan of Treatment Upcoming Encounters Date Type Department Care Team (Late st Contact Info) Description 03/04/2025 14:00 EDT Telemedicine [facility] Neurology Clinic [address] [place], [place] [phone] Brayan Polk MD 130 [facility] [address] [place] [address] 07/14/2025 14:30 EDT Office Visit [facility] Cancer Center Hematology & Oncology - [address] [phone] Evin Maria MD [address] [place] [address], [address] [place] [phone] documented as of this encounter Visit Diagnoses Not on filedocumented in this encounter Additional Health Concerns Infection Onset Date Last Indicated Resolved Time R/O COVID-19 Comment:Negative result 03/07/2022 03/07/2022 03/07/2022 9:37 EDT documented as of this encounter Care Teams Quality Nurse Relationship Specialty Start Date End Date Romario Hairston MD [address], [address] [id number] PCP - General 07/06/20 documented as of this encounter
--- OUTSIDE RECORDS SUMMARY | 2024-12-03 15:56 | XMS_ITS | Encounter Summary ---
Author Organization [facility] Address [address] [place] [address] Care Team Providers Care Design Engineer Marine Equipment Name Role Phone Romario Hairston MD Primary Care Provider +1- [phone] Reason for Visit * Reason Onset Date Comments Medication Management 12/06/2021 Encounter Details Date Type Department Care Team (Late st Contact Info) Description 12/06/2021 Telephone [facility] [place] [address] [place] [address] Brayan Polk MD 130 [facility] [address] [place] [address] Medication Management Social History Tobacco Use Types [...] Telephone Encounter - Vashti Grover RN - 12/06/2021 1335 EST Ever verbalized understanding of Dr. Roberts's message. * Telephone Encounter - Brayan Polk MD - 12/06/2021 1225 EST He would need to ask her PCP or psychiatrist for that. I'm only managing her seizures. * Telephone Encounter - Milly Thacker RN - 12/06/2021 1149 EST Talked with Ever. Gave him the note from Dr. Polk. No seizure activity noted, just leg tremors, increased anxiety to the point that she is not sleeping. Patient used to be on quetiapine 50 mg 3 tabs at HS that helped her sleep- but PCP took her off of it. To Dr. Polk - Ever would like to know if you would consider putting her back on the quetiapine (seroquel) to help with the sleeping. He will continue to monitor for seizure activity. Please send TE back to [facility] Neurology Nurse box * Telephone Encounter - Brayan Polk MD - 12/06/2021 1105 EST Please try to get as much detail from him as possible. On first impression I wouldn't expect leg shaking alone to be seizure activity in her case, nor for the antiseizure medication to help it, but perhaps he has other details which sound more like she is having seizures. * Telephone Encounter - Estela Powell MA - 12/06/2021 1056 EST Ever called stating that Ynes was up all night with leg tremors. He is worried that the medication is not working, he would like to speak with someone about this. Please call him back. Thank you documented in this encounter Plan of Treatment Upcoming Encounters Date Type Department Care Team (Late st Contact Info) Description 03/04/2025 14:00 EDT Telemedicine [facility] [address] [place] [phone] Brayan Polk MD [address] [facility] [address] [place] [address] 07/14/2025 14:30 EDT Office Visit [facility] Cancer Center Hematology & Oncology - [address] [address] Evin Maria MD [address] [place] [address], [facility], [address] [place] [address] documented as of this encounter Visit Diagnoses Not on filedocumented in this encounter Care Teams Design Engineer Marine Equipment Relationship Specialty Start Date End Date Florance, Emilija O, MD [address] [place] [address] PCP - General 07/06/20 documented as of this encounter
--- OUTSIDE RECORDS SUMMARY | 2024-12-03 15:56 | XMS_ITS | Encounter Summary ---
Author Organization [facility] Address [address] [place] [address] Care Team Providers Care Sales Support Technician Name Role Phone Romario Hairston MD Primary Care Provider +1- [phone] Reason for Visit * Reason Onset Date Comments Coordination Of Care 11/23/2021 Encounter Details Date Type Department Care Team (Late st Contact Info) Description 11/23/2021 Telephone [facility] [place] [facility] [address] [place] [address] Vashti Grover RN Coordination Of Care Social History Tobacco Use Types Packs/Day [...] Telephone Encounter - Vashti Grover RN - 11/27/2021 1317 EST Left a message for Tayler, reference assistant with Dr. Polk's cell phone number for Dr. Vizcarra. * Telephone Encounter - Brayan Polk MD - 11/27/2021 1054 EST Happy to talk to him. I just looked for him on [employer] and he's not available. Please give him my cell phone number. * Telephone Encounter - Vashti Grover RN - 11/23/2021 1045 EST Fax received from Dr. Jonatan Vizcarra's office at [facility] requesting updated medication list, who prescribes her bupropion and when can Dr. Vizcarra speak with Dr. Polk. Requested documentation and answers faxed as indicated on the scan with FAITH form. When would you like to schedule a call with Dr. Vizcarra? * Telephone Encounter - Vashti Grover RN - 11/23/2021 1009 EST Discontinued zonisamide accidentally - replaced as patient reported - script was anyway. documented in this encounter Plan of Treatment Upcoming Encounters Date Type Department Care Team (Late st Contact Info) Description 03/04/2025 14:00 EDT Telemedicine [facility] [place] [address] [place], [place] [phone] Brayan Polk MD 130 [facility] [address] [place] [phone] 07/14/2025 14:30 EDT Office Visit [facility] Cancer Center Hematology & Oncology - [address] [phone] Evin Maria MD [address] [place] [address], [address] [place] [phone] documented as of this encounter Visit Diagnoses Not on filedocumented in this encounter Discontinued Medications Medication Sig Discontinue Reason Start Date End Da te zonisamide (ZONEGRAN) 100 mg capsule Take 100 mg by mouth daily. Error 11/23/2021 documented as of this encounter Historical Medications * This list may reflect changes made after this encounter. zonisamide (ZONEGRAN) 100 mg capsule Take 200 mg by mouth daily. 03/28/2022 zonisamide (ZONEGRAN) 100 mg capsule Take 100 mg by mouth daily. 11/23/2021 added in this encounter Care Teams Sales Support Technician Relationship Specialty Start Date End Date Romario Hairston MD [address] [place], [place] [id number] PCP - General 07/06/20 documented as of this encounter
--- OUTSIDE RECORDS SUMMARY | 2024-12-03 15:56 | XMS_ITS | Encounter Summary ---
Author Organization [facility] Address [address] [place] [address] Care Team Providers Care Bag [place] Name Role Phone Romario Hairston MD Primary Care Provider +1- [phone] Reason for Visit * Reason Onset Date Comments Other 03/01/2022 Encounter Details Date Type Department Care Team (Late st Contact Info) Description 03/01/2022 Telephone [facility] [place] [address] [place] [address] Brayan Polk MD 130 [facility] [address] [place] [address] Other Social History Tobacco Use [...] Telephone Encounter - Vashti Grover RN - 03/01/2022 1312 EDT Ever verbalized understanding of taking Ynes off the lamotrigine for a few days to see if she gets better. I asked him to call back on Saturday to reports results. * Telephone Encounter - Brayan Polk MD - 03/01/2022 1151 EDT Agree it's unlikely to be the lamotrigine but it's now been going on long enough without stopping, and without any other explanation that it's probably worth trying to stop the lamotrigine and see ifshe feels better in a few days. * Telephone Encounter - Vashti Grover RN - 03/01/2022 1023 EDT Spoke with Ever. He reports that Ynes is vomiting once every morning. I instructed Ever to contacther PCP as this is not often a side effect of lamotrigine. Ever also reported that sometimes Ynes cannot open her eyelids. She will close them and they willget stuck closed. They even went to the ER for this and they said it was nothing. I told him again this is not a side effect of the lamotrigine and should be addressed by the PCP. He is calling them today. * Telephone Encounter - Angie Haley - 03/01/2022 1009 EDT Ever called and said he brought Ynes to ED twice for vomiting. They think it may because of her new medication Dr Polk prescribed. documented in this encounter Plan of Treatment Upcoming Encounters Date Type Department Care Team (Late st Contact Info) Description 03/04/2025 14:00 EDT Telemedicine [facility] [place] [address] [place] [address] Brayan Polk MD [address] [place] [address]- [address] [place] [phone] 07/14/2025 14:30 EDT Office Visit [facility] Cancer Center Hematology & Oncology - [address] [phone] Evin Maria MD [address] [facility], [address] [place] [address] documented as of this encounter Visit Diagnoses Not on filedocumented in this encounter Care Teams Bag [place] Relationship Specialty Start Date End Date Romario Hairston MD [address], [address] [place] [id number] PCP - General 07/06/20 documented as of this encounter
--- OUTSIDE RECORDS SUMMARY | 2024-12-03 15:56 | XMS_ITS | Encounter Summary ---
Author Organization [facility] Address [address] [place] [address] Care Team Providers Care Tarring Machine Operator Name Role Phone Romario Hairston MD Primary Care Provider +1- [phone] Encounter Details Date Type Department Care Team (Late st Contact Info) Description 01/03/2022 Orders Only [facility] - [facility] [place] Scan [address] [place] [address] Todd Vang Social History Tobacco Use Types Packs/Day Years [...] 14:00 EDT Telemedicine [facility] Neurology Clinic [address] [place] [phone] Brayan Polk MD [address] [place] [address] [place] [address] 07/14/2025 14:30 EDT Office Visit [facility] Cancer Center Hematology & Oncology - [address] [phone] Evin Maria MD [address] [facility], [address] [place] [phone] documented as of this encounter Visit Diagnoses Not on filedocumented in this encounter Care Teams Tarring Machine Operator Relationship Specialty Start Date End Date Romario Hairston MD [address], [address] [place] [phone] PCP - General 07/06/20 documented as of this encounter
--- OUTSIDE RECORDS SUMMARY | 2024-12-03 15:56 | XMS_ITS | Encounter Summary ---
Author Organization [facility] Address [address] [place] [address] Care Team Providers Care Preparation Department Supervisor Name Role Phone Romario Hairston MD Primary Care Provider +1- [phone] Encounter Details Date Type Department Care Team (Late st Contact Info) Description 02/02/2022 Documentation Visit [facility] [address] [place] [address] Brayan Polk MD 130 [facility] [address] [place] [address] Social History Tobacco Use Types Packs/Day Years [...] Author No 02/02/2022 5:55 EST Cecelia Espinoza , AZALEA * Are you blind or do [...] Lisa Muro RN documented in this encounter Progress Notes * Brayan Polk MD - 02/02/2022 1005 EST Notified by ED that Ynes presented after a seizure. No unusual features to the seizure and she was back to her normal baseline rapidly. I asked them to draw lacosamide and zonisamide levels and copy me on the results. I also asked them to tell her we would call her next week once the results come back. I also had a conversation with the neuro rehab team who is concerned that Ynes's functionpsychiatrically and cognitively has been deteriorating. She is followed by a counselor and a psychiatrist, but to the degree that seizure medicines may be contributing to that, I wonder if we should get her off of zonisamide and onto lamotrigine. Will await trough levels to come back first. documented in this encounter Plan of Treatment Upcoming Encounters Date Type Department Care Team (Late st Contact Info) Description 03/04/2025 14:00 EDT Telemedicine [facility] Neurology Clinic [address] [place] [id number] Brayan Polk MD 130 [facility] [address] [place] [address] 07/14/2025 14:30 EDT Office Visit [facility] Hematology & Oncology - [address] [address] Evin Maria MD 111 [facility] [place], [address] [place] [address] documented as of this encounter Visit Diagnoses Not on filedocumented in this encounter Care Teams Preparation Department Supervisor Relationship Specialty Start Date End Date Romario Hairston MD [address], [address] [id number] PCP - General 07/06/20 documented as of this encounter
--- OUTSIDE RECORDS SUMMARY | 2024-12-03 15:56 | XMS_ITS | Encounter Summary ---
Author Organization [facility] Address [address] [place] [address] Care Team Providers Care Rivet Bucker Name Role Phone Romario Hairston MD Primary Care Provider +1- [phone] Reason for Visit * Reason Comments Other Encounter Details Date Type Department Care Team (Late st Contact Info) Description 03/14/2022 Refill [facility] Neurology Clinic [address] [place] [address] Brayan Polk MD [address] [place] [address]-[address] [place] [address] Other Social History Tobacco Use [...] Telephone Encounter - Vashti Grover RN - 03/14/2022 0916 EDT Lamotrigine has been stopped due to suspected reaction per Dr. Polk's inpatinet note on 03/07. Refusing script documented in this encounter Plan of Treatment Upcoming Encounters Date Type Department Care Team (Late st Contact Info) Description 03/04/2025 14:00 EDT Telemedicine [facility] Neurology Clinic [address] [place] [address] Brayan Polk MD 130 [facility] [address] [place] [address] 07/14/2025 14:30 EDT Office Visit [facility] Cancer [facility] Hematology & Oncology - [address] [phone] Evin Maria MD 111 [facility], [address] [place] [phone] documented as of this encounter Visit Diagnoses Not on filedocumented in this encounter Care Teams Rivet Bucker Relationship Specialty Start Date End Date Romario Hairston MD [address], [address] [place], [place] [id number] PCP - General 07/06/20 documented as of this encounter
--- OUTSIDE RECORDS SUMMARY | 2024-12-03 15:56 | XMS_ITS | Encounter Summary ---
Author Organization [facility] Address [address] [place] [address] Care Team Providers Care Drug Abuse Treatment Specialist Name Role Phone Romario Hairston MD Primary Care Provider +1- [phone] Reason for Referral * Radiology Services (Routine/Next Available) - Authorization Not Required Specialty Diagnoses / Procedures Referred By Contac t Referred To Contact Diagnoses Unspecified abdominal pain Procedures CT ABDOMEN PELVIS W CONTRAST Romario Hairston MD [address] [place] [address] Phone: tel: fax: [facility] Referral ID Status Reason Start Date Expiration Date Visits Requested Visits Authorized [id number] Authorization Not Required 01/03/2022 1 1 Reason for Visit * Radiology Services (Routine/Next Available) - Authorization Not Required Specialty Diagnoses / Procedures Referred By Mitch t Referred To Contact Diagnoses Unspecified abdominal pain Procedures CT ABDOMEN PELVIS W CONTRAST Romario Hairston MD [address] [place] [address] Phone: tel: fax: [facility] Referral ID Status Reason Start Date Expiration Date Visits Requested Visits Authorized [id number] Authorization Not Required 01/03/2022 1 1 Encounter Details Date Type Department Care Team (Latest Contact Info) Description 01/30/2022 15:59 EST - 01/30/2022 23:59 EST Hospital Encounter [facility] [place] Scan [address] [place], [place] [id number] Unspecified abdominal pain Discharge Disposition: Home or Self Care Social [...] 17:42 EST Gender Identity Female 03/18/2020 17:54 J CARLOST Sexual Orientation Not on file documented as [...] Lisa Muro RN documented in this encounter Medications at [...] daily. 2 documented as of this encounter Discharge Disposition Disposition Code Departure Means Destination Home or Self Care documented in this encounter Plan of Treatment Upcoming Encounters Date Type Department Care Team (Late st Contact Info) Description 03/04/2025 14:00 EDT Telemedicine [facility] Neurology Clinic [address] [place] [address] Brayan Polk MD 130 [facility] [address] [place] [phone] 07/14/2025 14:30 EDT Office Visit [facility] Cancer [facility] Hematology & Oncology - [address] [address] Evin Maria MD [address] [place] [address], [facility], [address] [place] [address] documented as of this encounter Procedures Procedure Name Priority Date/Time Associated Diagnosis Comments CT ABDOMEN PELVIS W CONTRAST Routine 01/30/2022 16:13 EST Unspecified abdominal pain documented in this encounter Results * CT ABDOMEN PELVIS W CONTRAST (01/30/2022 16:13 EST) Anatomical Region Laterality Modality Body, Abdomen, Pelvis, Abdomen and Pelvis Computed Tomography 01/19/2022 16:0 0 EST Impressions 01/30/2022 17:02 EST Mild prominence of the common bile duct up to 7 mm. Gallbladder mildly distended. No calcified gallstones or surrounding edematous change. Correlate with clinical situation. THIS DOCUMENT HAS BEEN ELECTRONICALLY SIGNED BY ELIZABETH MORRIS MD FOR ANY QUESTIONS OR CONCERNS REGARDING THIS REPORT PLEASE CALL [facility] AT [phone] Narrative 01/30/2022 17:02 EST PROCEDURE INFORMATION: Exam: CT Abdomen And Pelvis With Contrast Exam date and time: 01/19/2022 4:00 PM Age: 52 years old Clinical indication: Other: Unknown; Additional info: Unspecified abd pain TECHNIQUE: Imaging protocol: Computed tomography [...] CHEST WITHOUT CONTRAST 08/11/2021 2:43 PM FINDINGS: Liver: Several hepatic cysts largest 6 mm. Gallbladder and bile ducts: Mild prominence of the common bile duct up to 7 mm. Gallbladder mildly distended. No calcified gallstones or surrounding edematous change. Pancreas: Normal. No ductal dilation. Spleen: Normal. No splenomegaly. Adrenal glands: Normal. No mass. Kidneys and ureters: Normal. No hydronephrosis. Stomach and bowel: Unremarkable. No obstruction. No mucosal thickening. Appendix: No evidence of appendicitis. Intraperitoneal space: Small amount of free pelvic fluid. Vasculature: Unremarkable. No abdominal aortic aneurysm. Lymph nodes: Unremarkable. No enlarged lymph nodes. Urinary bladder: Unremarkable as visualized. Reproductive: Unremarkable as visualized. Bones/joints: Unremarkable. No acute fracture. Soft tissues: Unremarkable. Procedure Note Elizabeth Morris MD - 01/30/2022 PROCEDURE INFORMATION: Exam: CT Abdomen And Pelvis With Contrast Exam date and time: 01/19/2022 4:00 PM Age: 52 years old Clinical indication: Other: Unknown; Additional info: Unspecified abd pain TECHNIQUE: Imaging protocol: Computed tomography [...] CHEST WITHOUT CONTRAST 08/11/2021 2:43 PM FINDINGS: Liver: Several hepatic cysts largest 6 mm. Gallbladder and bile ducts: Mild prominence of the common bile duct up to 7 mm. Gallbladder mildly distended. No calcified gallstones or surrounding edematous change. Pancreas: Normal. No ductal dilation. Spleen: Normal. No splenomegaly. Adrenal glands: Normal. No mass. Kidneys and ureters: Normal. No hydronephrosis. Stomach and bowel: Unremarkable. No obstruction. No mucosal thickening. Appendix: No evidence of appendicitis. Intraperitoneal space: Small amount of free pelvic fluid. Vasculature: Unremarkable. No abdominal aortic aneurysm. Lymph nodes: Unremarkable. No enlarged lymph nodes. Urinary bladder: Unremarkable as visualized. Reproductive: Unremarkable as visualized. Bones/joints: Unremarkable. No acute fracture. Soft tissues: Unremarkable. IMPRESSION Mild prominence of the common bile duct up to 7 mm. Gallbladder mildly distended. No calcified gallstones or surrounding edematous change. Correlate with clinical situation. THIS DOCUMENT HAS BEEN ELECTRONICALLY SIGNED BY ELIZABETH MORRIS MD FOR ANY QUESTIONS OR CONCERNS REGARDING THIS REPORT PLEASE CALL [facility] [phone] us Romario Hairston MD IMG CT ORDERABLES Final Re sult documented in this encounter Visit Diagnoses Diagnosis Unspecified abdominal pain documented in this encounter Administered Medications Inactive Administered Medications - up to 3 most recent administrations Medication Order MAR Action Action Date Dose Rate Site iohexoL (OMNIPAQUE 350) solution 100 mL 100 mL, intravenous, Once in imaging, 1 dose, Starting on 01/30/22 at 1600, Until 01/30/22 at 1613, Routine Given 01/30/2022 16:13 EST 100 mL documented in this encounter Orders Medications Ordered That Babak ht Not Have Been Administered Count Last Ordered Date First Ordered Date iohexoL (OMNIPAQUE 350) solution 100 mL 1 0 01/30/2022 documented in this encounter Care Teams Drug Abuse Treatment Specialist Relationship Specialty Start Date End Date Romario Hairston MD [address], [address] [place] [address] PCP - General 07/06/20 documented as of this encounter
--- OUTSIDE RECORDS SUMMARY | 2024-12-03 15:56 | XMS_ITS | Encounter Summary ---
Author Organization [facility] Address [address] [place] [address] Care Team Providers Care Facilities Operator Name Role Phone Romario Hairston MD Primary Care Provider +1- [phone] Encounter Details Date Type Department Care Team (Latest Contact Info) Description 02/02/2022 Travel Social History Tobacco Use Types Packs/Day [...] Date of Assessment Author No 07/16/2020 18:38 EDLisa Rose RN * Do you have serious difficulty walking or climbing stairs? (5 years old or older) Answer Date of Assessment Author No 07/16/2020 18:38 EDLisa Rose RN * Do you have difficulty dressing [...] Contact Info) Description 03/04/2025 14:00 EDT Telemedicine [facility] Neurology Clinic [address] [place] [id number] Brayan Polk MD [address] [place] [address]-[address] [place] [address] 07/14/2025 14:30 EDT Office Visit [facility] Cancer Center Hematology & Oncology - [address] [phone] Evin Maria MD 111 [facility], Level 2 [place] [address] documented as of this encounter Visit Diagnoses Not on filedocumented in this encounter Care Teams Facilities Operator Relationship Specialty Start Date End Date Romario Hairston MD [address], [address] [id number] PCP - General 07/06/20 documented as of this encounter
--- OUTSIDE RECORDS SUMMARY | 2024-12-03 15:56 | XMS_ITS | Encounter Summary ---
Author Organization [facility] Address [address] [place] [address] Care Team Providers Care Special Officer Automat Name Role Phone Romario Hairston MD Primary Care Provider +1- [phone] Reason for Visit * Reason Comments Eye Problem pt c/o dry eyes. hx of dry eyes. no relief with eye drops. emesis x 1 this a.m. seen for n/v here 2-3 days ago. Encounter Details Date Type Department Care Team (Late st Contact Info) Description 02/25/2022 8:37 EDT - 02/25/2022 9:33 EDT Emergency [facility] Emergency Department [address] [place] [id number] Damon Manuel MD [address] [place] [address] Non-intractable vomiting with nausea, unspecified vomiting type (Primary Dx) Discharge Disposition: Home or Self [...] Sign Reading Time Taken Comments Blood Pressure 120/92 02/25/2022 0839 EDT Pulse 109 02/25/2022 0839 EDT Temperature 36.8 ??C (98.3 ??F) 02/25/2022 0839 EDT Respiratory Rate 16 02/25/2022 0839 EDT Oxygen Saturation 99% 02/25/2022 0839 EDT Inhaled Oxygen Concentration - - Weight [...] * Discharge Instructions* Damon Manuel MD - 02/25/2022 9:29 EDT You were seen in the ED for vomiting and an episode of difficulty opening your eyes. Take Zofran as directed as needed for nausea. Continue all of your other medications at their usualdoses. Follow-up with your PCP this week if symptoms are not improving. Return to the ED for any worseningsymptoms. documented in this encounter Medications at Time of Discharge omeprazole (PRILOSEC) 20 mg capsule TAKE 1 CAPSULE BY MOUTH EVERY DAY 30 MINUTES BEFORE BREAKFAST 1 Prazosin (MINIPRESS) 1 mg capsule Take 1 Capsule by mouth at bedtime. 0 acetaminophen (TYLENOL) 500 mg tablet Take 2 Tabs by mouth every 6 hours. 0 02/25/20 24 aspirin chewable 81 mg tablet Take 1 Tablet by mouth daily. 09/11/20 23 buPROPion (WELLBUTRIN SR) 150 mg SR tablet TK 1 T PO QD IN THE MORNING 0 03/28/20 22 diclofenac sodium 1 % gel APPLY 2 GRAMS TO THE AFFECTED JOINT BID 0 03/28/20 22 docusate sodium (COLACE) 100 mg capsule Take 1 Cap by mouth 2 times daily. 0 03/28/20 22 ELIQUIS 2.5 mg tablet TAKE 1 TABLET BY MOUTH TWICE DAILY 60 Tablet 6 1 10/19/20 22 GENTEAL TEARS MODERATE 0.1-0.3-0.2 % drops INSTILL 1 DROP IN BOTH EYES FOUR TIMES DAILY 2 02/04/20 24 ketotifen (ZADITOR) 0.025 % (0.035 %) ophthalmic solution Not filling 08/09/20 2 0 03/28/20 22 lacosamide (VIMPAT) 50 mg tablet Take 1 Tablet by mouth 2 times daily. Daily Max: 100 mg 60 Tablet 2 2 03/02/20 22 lactulose (CHRONULAC) 10 gram/15 mL solution TAKE 15 ML BY MOUTH EVERY DAY NEEDED 0 02/04/20 24 lamoTRIgine (LAMICTAL) 100 mg tablet Take 1 Tablet by mouth 2 times daily. 60 Tablet 3 2 03/28/20 22 lamoTRIgine (LAMICTAL) 25 mg tablet Weeks 1-2: take 1 25mg tablet twice a day. Weeks 3-4 take 2 25mg tablets twice a day. New prescription 100mg tabs, take 1 tab twice a day from week 5 and on. 84 Tablet 2 03/28/20 22 magnesium oxide 240 mg magnesium powder in packet Take 1 Packet by mouth 2 times daily. 60 Packet 2 03/28/20 22 melatonin 5 mg tablet Take 2 Tablets by mouth at bedtime. 02/25/20 24 OLANZapine (ZYPREXA) 10 mg tablet TAKE 1 TABLET BY MOUTH EVERY DAY AT BEDTIME. TAKE WITH 5MG TABLET FOR TOTAL AT BEDTIME DOSE OF 15MG. 1 03/28/20 22 OLANZapine (ZYPREXA) 5 mg tablet Take 5 mg by mouth daily. Filled on 01/08/22 #90 tablets, per caregiver pt may take an extra' dose if needed 0 03/28/20 22 ondansetron (ZOFRAN-ODT) 4 mg disintegrating tablet Take 1 Tablet by mouth every 8 hours as needed for Nausea. 10 Tablet 2 02/04/20 24 polyethylene glycol (MIRALAX) 17 gram/dose powder Take 17 g by mouth daily. 510 g 0 02/04/20 24 propRANolol (INDERAL) 10 mg tablet TK 1 T PO Q 8 H OES PRN 0 01/03/20 23 QUEtiapine (SEROQUEL) 50 mg tablet Take 50 mg by mouth at bedtime. 03/07/20 22 senna (SENOKOT) 8.6 mg tablet Take 1 Tab by mouth 2 times daily as needed (Constipation). 0 02/04/20 24 zonisamide (ZONEGRAN) 100 mg capsule Take 200 mg by mouth daily. 03/28/20 22 documented as of this encounter Ordered Prescriptions Prescription Sig Dispense Quantity Refills Last Filled Start Date End Date ondansetron (ZOFRAN-ODT) 4 mg disintegrating tablet Take 1 Tablet by mouth every 8 hours as needed for Nausea. 10 Tablet 02/25/2022 4 documented in this encounter Discharge Disposition Disposition Code Departure Means Destination Home or Self Assisted documented in this encounter ED Notes * [facility], Damon, MD - 02/25/2022 0931 EDT Emergency Department Visit Assessment and ED Course 52 y.o. female with a history of hemorrhagic stroke with resultant mild aphasia, cognitive difficulties, seizures and right-sided weakness presents to the ED after an episode of vomiting and difficulty opening her eyes. Her symptoms have completely resolved in the ED. She has no difficulty with eyeopening, no longer nauseous. The episode of bilateral difficulty with eye opening does not seem consistent with stroke. She has no headache to suggest intracranial bleeding. No fever or neck stiffness to suggest ENGLISH DRAWER infection. Overall very reassuring exam in the ED. I wrote a prescription for Zofran in case her nausea recurs. Discharged home. Final diagnoses: Non-intractable vomiting with nausea, unspecified vomiting type Disposition: Discharged Chief complaint: Vomiting HPI Ynes White is a 52 y.o. female with a history of hemorrhagic stroke with resultant mild aphasia, cognitive difficulties, seizures and right-sided weakness presents to the ED after an episode ofvomiting and difficulty opening her eyes. History is obtained from the patient and her caregiver. Shortly after waking up this morning she had an episode of vomiting. After that it seemed hard for her to open both eyes. Patient states she had pain whenever she would try to open them. She also has some tingling in her lower face, which is common for her. The difficulty opening her eyes is now completely resolved. She is no longer nauseous. She denies headache, fever, abdominal pain or diarrhea. She was seen in the ED 4 days ago with nausea and vomiting, which has generally improved since then except for the episode this morning. History was provided by: Patient, caregiver Patient's pertinent PMH, FH, SH were reviewed and edited as necessary. Review of Systems Constitutional: Negative for chills and fever. HENT: Negative for congestion. Eyes: Positive for pain. Negative for redness. Respiratory: Negative for shortness of breath. Cardiovascular: Negative for chest pain. Gastrointestinal: Positive for nausea and vomiting. Negative for abdominal pain. Genitourinary: Negative for dysuria. Musculoskeletal: Negative for neck pain. Skin: Negative for rash. Neurological: Negative for speech change. Psychiatric/Behavioral: Negative for hallucinations. Physical Exam BP (!) 120/92 Pulse (!) 109 Temp 36.8 ??C (98.3 ??F) Resp 16 SpO2 99% A medical screening exam was performed. Physical Exam Vitals and nursing note reviewed. Constitutional: General: She is not in acute distress. Appearance: She is well-developed and well-nourished. HENT: Nose: Nose normal. Mouth/Throat: Mouth: Mucous membranes are moist. Pharynx: Oropharynx is clear. Eyes: Extraocular Movements: EOM normal. Conjunctiva/sclera: Conjunctivae normal. Pupils: Pupils are equal, round, and reactive to light. Cardiovascular: Rate and Rhythm: Normal rate and regular rhythm. Heart sounds: Normal heart sounds. Pulmonary: Effort: Pulmonary effort is normal. Breath sounds: Normal breath sounds. Abdominal: General: Bowel sounds are normal. Palpations: Abdomen is soft. Tenderness: There is no abdominal tenderness. Musculoskeletal: General: Normal range of motion. Cervical back: Normal range of motion and neck supple. Skin: General: Skin is warm and dry. Neurological: Mental Status: She is alert and oriented to person, place, and time. Cranial Nerves: No cranial nerve deficit. Sensory: Sensation is intact. Motor: Motor function is intact. Comments: Dysarthric speech Psychiatric: Mood and Affect: Mood and affect normal. Procedures Procedures documented in this encounter Plan of Treatment Upcoming Encounters Date Type Department Care Team (Late st Contact Info) Description 03/04/2025 14:00 EDT Telemedicine [facility] Neurology Clinic [address] [place] [id number] Brayan Polk MD [address] [place] [address] [place] [phone] 07/14/2025 14:30 EDT Office Visit [facility] Hematology & Oncology - [address] [phone] Evin Maria MD [address] [place] [address], [facility], [address] [place] [phone] documented as of this encounter Visit Diagnoses Diagnosis Non-intractable vomiting with nausea, unspecified vomiting type- Primary documented in this encounter Care Teams Special Officer Automat Relationship Specialty Start Date End Date Romario Hairston MD [address] [place] [address] PCP - General 07/06/20 documented as of this encounter
--- OUTSIDE RECORDS SUMMARY | 2024-12-03 15:56 | XMS_ITS | Encounter Summary ---
Author Organization [facility] Address [address] [place] [address] Care Team Providers Care Test Tech Name Role Phone Romario Hairston MD Primary Care Provider +1- [phone] Reason for Visit * Reason Onset Date Comments Appointment Related 11/21/2021 Encounter Details Date Type Department Care Team (Late st Contact Info) Description 11/21/2021 Telephone [facility] Hematology & Oncology - [address] [address] Evin Maria MD [address] [place] [address], [address] [place] [address] Appointment Related Social History Tobacco [...] encounter Miscellaneous Notes * Telephone Encounter - Abena Milan - 11/21/2021 1551 EST Left msg with friend Ever, she was at a speech appt. Gave him d/t of rescheduled Soniai appt. From Saturday to Saturday. He acknowledged. documented in this encounter Plan of Treatment Upcoming Encounters Date Type Department Care Team (Late st Contact Info) Description 03/04/2025 14:00 EDT Telemedicine [facility] Neurology Clinic [address] [place] [phone] Brayan Polk MD 130 [facility] [address] [place] [address] 07/14/2025 14:30 EDT Office Visit [facility] Center Hematology & Oncology - [address] [address] Evin Maria MD [address] [place] [address], [facility], [address] [place] [address] documented as of this encounter Visit Diagnoses Not on filedocumented in this encounter Care Teams Test Tech Relationship Specialty Start Date End Date Romario Hairston MD [address] [place] [address] PCP - General 07/06/20 documented as of this encounter
--- OUTSIDE RECORDS SUMMARY | 2024-12-03 15:56 | XMS_ITS | Encounter Summary ---
Author Organization [facility] Address [address] [place] [address] Care Team Providers Care Etl Data Architect Name Role Phone Romario Hairston MD Primary Care Provider [phone]- [phone] Reason for Visit * Reason Onset Date Comments Medication Reaction 03/14/2022 Encounter Details Date Type Department Care Team (Late st Contact Info) Description 03/14/2022 Telephone [facility] [address] [place] [address] Brayan Polk MD [address] [facility] [address] [place] [address] Medication Reaction Social History Tobacco Use Types Packs/Day Years [...] Encounter - Vashti Grover RN - 03/14/2022 1557 EDT Thanks! * Telephone Encounter - Brayan Polk MD - 03/14/2022 1553 EDT yes * Telephone Encounter - Vashti Grover RN - 03/14/2022 1432 EDT So you will address his concerns stated here? * Telephone Encounter - Brayan Polk MD - 03/14/2022 1417 EDT Yes I'm in daily contact with the hospitalist about her care. * Telephone Encounter - Vashti Grover, RN - 03/14/2022 1356 EDT Did Ynes start a new medication from you? It doesn't look like anything new was started. I she still inpatient? I cannot tell from the chart. * Telephone Encounter - Angie Haley - 03/14/2022 1327 EDT Ever says since Ynes has been on new seizure medication she has become angry, fallen out of bed, throws things and is very confused. He says this is scaring him. documented in this encounter Plan of Treatment Upcoming Encounters Date Type Department Care Team (Late st Contact Info) Description 03/04/2025 14:00 EDT Telemedicine [facility] Neurology Clinic [address] [place] [id number] Brayan Polk MD 130 [facility]- [address] [place] [address] 07/14/2025 14:30 EDT Office Visit [facility] Cancer Center Hematology & Oncology - [address] [id number] Evin Maria MD 111 [facility], [address] [place] [phone] documented as of this encounter Visit Diagnoses Not on filedocumented in this encounter Care Teams Etl Data Architect Relationship Specialty Start Date End Date Rmoario Hairston MD [address], [address] [id number] PCP - General 07/06/20 documented as of this encounter
--- OUTSIDE RECORDS SUMMARY | 2024-12-03 15:56 | XMS_ITS | Encounter Summary ---
Author Organization [facility] Address [address] [place] [address] Care Team Providers Care Launderette Attendant Name Role Phone Romario Hairston MD Primary Care Provider [phone]- [phone] Reason for Visit * Reason Onset Date Comments Other 01/25/2022 Encounter Details Date Type Department Care Team (Late st Contact Info) Description 01/25/2022 Telephone [facility] Neurology Clinic [address] [place] [address] Brayan Polk MD 130 [facility] [address] [place] [address] Other Social History Tobacco Use [...] Telephone Encounter - Vashti Grover RN - 01/25/2022 1328 EST Ever agrees that he should call the psychiatrist. He was also describing symptoms of dry mouth and Itold him that many of the new medications she is on will cause dry mouth. He stated that she is also drooling at times and cannot really control her mouth. He wasn't sure who to call. Next time I will suggest he speak with her PCP first. * Telephone Encounter - Brayan Polk MD - 01/25/2022 1112 EST I don't see that the lacosamide or zonisamide have changed recently, so if she's having new symptoms I doubt it's from those. Might be medications prescribed by her psychiatrist who was making more recent changes. Please verify current doses of both seizure medications. * Telephone Encounter - Vashti Grover RN - 01/25/2022 1102 EST Please advise * Telephone Encounter - Angie Haley - 01/25/2022 1050 EST Ever called , he said since the increase in medication Marcella has increased tiredness, trouble with words and drinking water. documented in this encounter Plan of Treatment Upcoming Encounters Date Type Department Care Team (Late st Contact Info) Description 03/04/2025 14:00 EDT Telemedicine [facility] Neurology Clinic [address] [place] [address] Brayan Polk MD 130 [facility] [address] [place] [phone] 07/14/2025 14:30 EDT Office Visit [facility] Cancer Center Hematology & Oncology - [facility] [address] [place], [place] [phone] Evin Maria MD 111 [facility], [facility], [address] [place] [address] documented as of this encounter Visit Diagnoses Not on filedocumented in this encounter Care Teams Launderette Attendant Relationship Specialty Start Date End Date Romario Hairston MD [facility], [address] [place] [id number] PCP - General 07/06/20 documented as of this encounter
--- OUTSIDE RECORDS SUMMARY | 2024-12-03 15:56 | XMS_ITS | Encounter Summary ---
Author Organization [facility] Address [address] [place] [address] Care Team Providers Care Forex Trader Name Role Phone Romario Hairston MD Primary Care Provider +1- [phone] Reason for Visit * Reason Onset Date Comments Medication Management 11/27/2021 Encounter Details Date Type Department Care Team (Late st Contact Info) Description 11/27/[address] [facility] [place] Neurology Clinic [address] [place] [address] Brayan Polk MD 130 [facility] [address] [place] [address] Medication Management Social History Tobacco [...] Max: 100 mg 60 Tablet 2 11/27/2021 03/02/2022 documented in this encounter Miscellaneous Notes * Addendum Note - Vashti Grover RN - 11/27/2021 1328 ESTAddended by: VASHTI GROVER on: 11/27/2021 13:28 Modules accepted: Orders * Telephone Encounter - Vashti Grover RN - 11/27/2021 1240 EST Ever stopped by the office looking for the Vimpat script. I told him that I will place the script after lunch. Ever confirmed that Ynes is now taking Vimpat 50 mg bid. Called script directly to the pharmacist. * Telephone Encounter - Brayan Polk MD - 11/27/2021 1052 EST Yes that's fine. Sounds like brivaracetam caused tremulousness as a side effect, so for now keep taking zonisamide 200mg/d and the lacosamide. Please ask him how much he's giving her. Typically we'd start with 50mg twice a day of lacosamide and see if it's helpful enough to keep seizures controlledbut not give side effects. * Telephone Encounter - Vashti Grover RN - 11/27/2021 1041 EST Please advise. * Telephone Encounter - Jesus Ho MA - 11/27/2021 0903 EST pts partner called he Took her off the seizure meds having too many tremors so he started back on the vimpat and needs more refills because he wont have anymore for tomorrow. Unless he Dr. Polk wanted to try something else. documented in this encounter Plan of Treatment Upcoming Encounters Date Type Department Care Team (Late st Contact Info) Description 03/04/2025 14:[address] [facility] - [facility] Neurology Clinic [address] [place] [phone] Brayan Polk MD [address] [place] [address]- [address] [place] [phone] 07/14/2025 14:30 EDT Office Visit [facility] Cancer Center Hematology & Oncology - [address] [address] Evin Maria MD [address] [place] [address], [address] [place] [phone] documented as of this encounter Visit Diagnoses Not on filedocumented in this encounter Discontinued Medications Medication Sig Discontinue Reason Start Date End Da te brivaracetam (BRIVIACT) 50 mg tablet Take 1 Tablet by mouth 2 times daily. Daily Max: 100 mg Side effects 11/07/2021 11/27/2021 documented as of this encounter Care Teams Forex Trader Relationship Specialty Start Date End Date Romario Hairston MD [address] [place] [address] PCP - General 07/06/20 documented as of this encounter
--- OUTSIDE RECORDS SUMMARY | 2024-12-03 15:56 | XMS_ITS | Encounter Summary ---
Author Organization [facility] Address [address] [place] [address] Care Team Providers Care Education Site Manager Name Role Phone Romario Hairston MD Primary Care Provider [phone] Reason for Visit * Reason Comments Numbness pt reporting new ons et of L sided facial mumbness. Pt has hx of CVA resulting in slurred speach and altered gait at baseline. Speach/gate are normal per pt's care provider who is at bedside. No obvious unilateral defecit noted in muscle tone or strength in face and extremeties. Pt and caregiver advise 1 week of abdominal discomfort, N/V. Encounter Details Date Type Department Care Team (Late st Contact Info) Description 03/03/2022 12:18 EDT - 03/03/2022 20:06 EDT Emergency [facility] Emergency Department [address] [place] [address] Derrick Gaytan MD [address] [place] [address] Bucky Matta MD Acute urinary retention (Primary Dx); Facial paresthesia Discharge Disposition: Home or Self Care Social [...] Sign Reading Time Taken Comments Blood Pressure 157/92 03/03/2022 1948 EDT Pulse 99 03/03/2022 1307 EDT Temperature 36.6 ??C (97.8 ??F) 03/03/2022 1229 EDT Respiratory Rate 15 03/03/20221947 EDT Oxygen Saturation 100% 03/03/20221947 EDT Inhaled Oxygen Concentration - - Weight [...] this encounter Discharge Instructions * Discharge Instructions* Bucky Matta MD - 03/03/2022 19:30 EDT A Reyes catheter has been placed because you were unable to void urine and had collected a total of800 cc of urine in your bladder. Follow instructions for the Reyes catheter. Contact the urology clinic at the following number [phone] on Saturday to schedule an appointment. If you cannot reach them you may call me in the emergency room on Saturday between 7 AM and 3PM and I will facilitate your consultation. documented in this encounter Medications at Time [...] Daily Max: 100 mg 180 Tablet 1 2 03/28/20 22 lactulose (CHRONULAC) 10 gram/15 mL solution [...] 5 and on. 84 Tablet 2 03/28/20 magnesium oxide 240 mg magnesium powder in [...] an extra' dose if needed 0 03/28/20 ondansetron (ZOFRAN-ODT) 4 mg disintegrating tablet Take [...] 03/28/20 22 documented as of this encounter Discharge Disposition Disposition Code Departure Means Destination Home or Self Mcfp documented in this encounter ED Notes * Bucky Matta MD - 03/03/2022 1516 EDTAssociated Order(s): Bladder Catheterization I have assumed care of this patient at shift change. This was the third visit for this patient this week with symptoms of nausea and vomiting. There was a question that lamotrigine may have contributed to the symptoms. The patient was asked to cease the treatment by Dr. Polk. Other symptoms included left-sided perioral paresthesias. I reassessed the patient and saw no evidence of any facial motor deficit. Her mucous membranes still appear dry as do her lips. The patient already received 1 L of normal saline. A CT scan imaging did not show any evidence of any new acute findings. Urine sample will also be collected to verify the specific gravity to better assess the hydration status. A urine sample was ordered however the patient was unable to void urine even after having received 2 L of normal saline. Patient still stated she could not void. A bladder scan estimated a volume of 800 cc of urine. I suggested the patient undergo a catheterization in after trials by nurses, the meatus could not be located. I myself have attempted a total of 4 times to no avail. Using a speculum I was able to locate the urethra on the roof of the vaginal introitus. Bladder Catheterization Date/Time: 03/03/2022 18:48 Performed by: Bucky Matta MD Authorized by: Bucky Matta MD Consent: Consent obtained: Verbal Consent given by: Patient Risks discussed: Infection, false passage and pain Alternatives discussed: Alternative treatment Pre-procedure details: Procedure purpose: Therapeutic Anesthesia (see MAR for exact dosages): Anesthesia method: None Procedure details: Provider performed due to: Altered anatomy Altered anatomy details: The URETHRA was noted to be on the roof of the introitus. Catheter insertion: Non-indwelling Catheter type: Reyes Catheter size: 14 Fr Bladder irrigation: no Number of attempts: 4 Urine characteristics: Dark Post-procedure details: Patient tolerance of procedure: Tolerated well, no immediate complications Comments: 800 cc of urine was collected. The non-indwelling catheter was removed and a Reyes catheter was inserted which the patient will keep for the next 2 days. Anticipate follow-up with urology. * Simona Schuster RN - 03/03/2022 1426 EDT MD Matta at bedside, patient reported pain and requested medication * Simona Schuster RN - 03/03/2022 1409 EDT Returned from [facility]. Reports nausea is stable. Family at bedside. Declines any intervention from RN * Derrick Gaytan MD - 03/03/2022 1337 EDT Emergency Department Visit Assessment and ED Course 52-year-old female [id number] with a complicated neurologic history including intracranialhemorrhage after cerebral venous thrombosis and resultant seizure disorder. This is the third visitthis week for ongoing nausea and vomiting. She believes this may be attributed to the lamotrigine which she just started. She took her last dose yesterday as Dr. Polk advised her to hold it for now. Today she is presenting primarily with left-sided perioral paresthesias. I do not appreciate anyweakness on exam however she does describe decreased sensation in the V3 distribution. Notably she has a papular rash that involves both cheeks and spreads well outside of this range. Her mucous membranes are dry. Abdominal exam is benign. I reviewed her evaluation over the last week and she has not had any neuro imaging. With her ongoing symptoms and her past history I have chosen to obtain a CT of the brain. Additionally I will recheck her lab work and provide her with Reglan and IV fluid. Vashti be turned over to Dr. Matta at 1400. He will follow up on labs and CT scan. Relevant Data as of Mar 03 2140 Sat Mar 03, [address] evidence for acute intracranial abnormality or significant change since 09/18/21. [LUPE] 1510 Relevant blood results, potassium of 3.3. Total protein 5.5 and total albumin 2.8.Mild neutropenia. [LUPE] 2001 Urinalysis clean. [LUPE] Relevant Data User Index [LUPE] Bucky Matta MD Final diagnoses: Acute urinary retention Facial paresthesia Disposition: Discharged Chief complaint: Left facial numbness HPI Ynes White is a 52 y.o. female with a history of intracranial hemorrhage secondary to a cerebral venous thrombosis in January 2020 treated operatively . Patient has a resultant seizure disorder, some mild right-sided weakness, mild aphasia, mild cognitive deficits. She returned to the emergencydepartment today reporting almost a week's worth of ongoing nausea and vomiting. New today however is sensation of numbness and tingling on the left side of her face as well as her hand. Of note initially she stated the right hand then she stated she was not sure which hand was numb because it is not numb currently. The numbness in her face is predominantly the lower face around her lips on the le ft. She states this is causing difficulty drinking liquids as they keep spilling out of the side ofher mouth. She thought that maybe she was weak in the face as well. Patient feels overall weak because she has not been able to eat or drink. She denies any headaches.She has not had any abdominal pain. No fevers or chills. No diarrhea. No cough chest pain or shortness of breath. Patient states that she spoke with her neurologist Dr. Polk yesterday and was advised to stop taking the lamotrigine in case that might be causing the nausea and vomiting. History was provided by: Patient and friend Patient's pertinent PMH, FH, SH were reviewed and edited as necessary. ROS A 10-point review of systems was performed. The patient answered negative to all questions with theexceptions of those explicitly detailed as positives in the HPI. Pertinent negatives are also explicitly stated. Physical Exam BP (!) 157/92 Pulse 99 Temp 36.6 ??C (97.8 ??F) Resp 15 SpO2 100% A medical screening exam was performed. Physical Exam Nursing notes and vital signs were reviewed. Constitutional: Well appearing in no acute distress Head: atraumatic. Normocephalic. Eyes: Pupils equal and reactive to light, no scleral icterus ENT: Oral mucosa is quite dry. Without apparent lesions.external ears unremarkable. Neck: supple with Full ROM, no cervical LAD Heart: RRR without MRG Lungs: No respiratory distress. Clear to auscultation bilaterally. Abdomen: Soft NT/ND. Normal Bowel sounds. No hepato-splenomegally. Back: no CVA tenderness Skin: She has a papular rash on both cheeks. Upper Extremities: Moving spontaneously, warm and well perfused. Lower Extremities: moving spontaneously. No LE edema. No calf tenderness Neuro: Alert and Oriented. Speech is a little thick and difficult to understand. Cranial nerves II through XII are notable for decreased sensation in the V3 distribution on the left. Grossly normal strength. Patient currently has normal sensation in both upper and lower extremities however complains of decreased sensation along the skin of the left upper quadrant of the abdomen Psych: No agitation or overt thought disorder Laboratory results independently reviewed. Procedures Procedures documented in this encounter Plan of Treatment Upcoming Encounters Date Type Department Care Team (Late st Contact Info) Description 03/04/2025 14:00 EDT Telemedicine [facility] [address] [place] [id number] Brayan Polk MD [address] [place] [address] [place] [address] 07/14/2025 14:30 EDT Office Visit [facility] Hematology & Oncology - [address] [address] Evin Maria MD [address] [place] [address], [address] [place] [address] documented as of this encounter Procedures Procedure Name Priority Date/Time Associated Diagnosis Comments UA WITH REFLEX SEDIMENT (CULTURE IF POS) STAT 03/03/2022 18:49 EDT ED BLADDER CATHETERIZATION Routine 03/03/2022 18:48 EDT ED BLADDER CATHETERIZATION Routine 03/03/2022 18:[address] HEAD WO CONTRAST STAT 03/03/2022 1 4:02 EDT COMPLETE BLOOD COUNT AND DIFFERENTIAL STAT 03/03/2022 13:01 EDT MAGNESIUM STAT 03/03/2022 13:01 EDT COMPREHENSIVE METABOLIC PANEL (CMP) STAT 03/03/2022 13:01 EDT documented in this encounter Results * (ABNORMAL) UA WITH REFLEX SEDIMENT (CULTURE IF POS) (03/03/2022 18:49 EDT) Color UA Dark Yellow Colorless to Dark Yellow 03/03/2022 18:57 [facility] Clarity UA Clear Clear 03/03/2022 18:57 [facility] Glucose UA Negative Negative 03/03/2022 18:57 [facility] Bilirubin UA 1+(A) Negative 03/03/2022 18:57 [facility] Ketones UA Negative Negative 03/03/2022 18:57 [facility] Specific [place], Urine 1.020 1.001 - 1.035 03/03/2022 18:57 [facility] Blood UA Negative Negative 03/03/2022 18:57 [facility] pH, UA 8.0 4.6 - 8.0 03/03/2022 18:57 [facility] Protein UA Negative Negative 03/03/2022 18:57 [facility] Urobilinogen UA 0.2 0.2 , 1.0, Normal mg/dL 03/03/2022 18:57 [facility] Nitrite UA Negative Negative 03/03/2022 18:57 [facility] Leukocyte Esterase UA Negative Negative 03/03/2022 18:57 [facility] Urine URINE SPECIMEN COLLECTION, CLEAN CATCH / Unknown Urine Collect / Unknown 03/03/2022 18:49 EDT 03/03/2022 18:53 EDT us Bucky Matta MD URINALYSIS ORDERABLES Final R esult [facility] [address] [place] [address] * HC - INSJ NON-NDWELLG BLADDER CATHETER, MA INSJ NON-NDWELLG BLADDER CATHETER (03/03/2022 18:48 EDT) Narrative [facility] EKG - 03/03/2022 18:48 EDT Bucky Matta MD ? 03/03/2022 20:03 Bladder Catheterization Date/Time: 03/03/2022 18:48 Performed by: Bucky Matta MD Authorized by: Bucky Matta MD Consent: ??Consent obtained: ??Verbal ??Consent given by: ??Patient ??Risks discussed: ??Infection, false passage and pain ??Alternatives discussed: ??Alternative treatment Pre-procedure details: ??Procedure purpose: ??Therapeutic Anesthesia (see MAR for exact dosages): ??Anesthesia method: ??None Procedure details: ??Provider performed due to: ??Altered anatomy ??Altered anatomy details: The URETHRA was noted to be on the roof of the introitus. ??Catheter insertion: ??Non-indwelling ??Catheter type: ??Reyes ??Catheter size: ??14 Fr ??Bladder irrigation: no ?Number of attempts: ??4 ??Urine characteristics: ??Dark Post-procedure details: ??Patient tolerance of procedure: ??Tolerated well, no immediate complications Comments: ?? 800 cc of urine was collected. ??The non-indwelling catheter was removed and a Reyes catheter was inserted which the patient will keep for the next 2 days. Anticipate follow-up with urology. us Bucky Matta MD PROCEDURE/MINOR SURGICAL ORDE RABLES Final Result Performing Organization Address [facility]/ZIP Co de Phone Number [facility] EKG * CT HEAD WO CONTRAST (03/03/2022 14:02 EDT) Anatomical Region Laterality Modality Head Computed Tomogra phy 03/03/2022 13:5 6 EDT Impressions 03/03/2022 14:[address] evidence for acute intracranial abnormality or significant change since 09/18/21. THIS DOCUMENT HAS BEEN ELECTRONICALLY SIGNED BY JAGDEEP ATKINS MD FOR ANY QUESTIONS OR CONCERNS REGARDING THIS REPORT PLEASE CALL [facility] AT [phone] Narrative 03/03/2022 14:51 EDT PROCEDURE INFORMATION: Exam: CT Head Without Contrast Exam date and time: 03/03/2022 1:56 PM Age: 52 years old Clinical indication: Other: L facial numbness, prior hemmorhagic stroke; Prior surgery TECHNIQUE: Imaging protocol: Computed tomography of the head without contrast. Radiation optimization: All CT scans at this facility use at least one of these dose optimization techniques: automated exposure control; mA and/or kV adjustment per patient size (includes targeted exams where dose is matched to clinical indication); or iterative reconstruction. COMPARISON: CT HEAD WITHOUT CONTRAST 09/18/2021 7:05 AM FINDINGS: Brain: There is a similar area of encephalomalacia in the left temporoparietal region. There is no evidence for large acute cortical infarct. No intracranial hemorrhage or extraaxial collection is identified. There is no significant intracranial mass effect. Cerebral ventricles: The ventricles and sulci are stable in configuration. Paranasal sinuses: Visualized sinuses are unremarkable. No fluid levels. Mastoid air cells: Visualized mastoid air cells are well aerated. Bones/joints: Prior left frontotemporoparietal craniotomy again present. No skull fracture is identified. Soft tissues: Unremarkable. Procedure Note Jagdeep Atkins MD - 03/03/2022 PROCEDURE INFORMATION: Exam: CT Head Without Contrast Exam date and time: 03/03/2022 1:56 PM Age: 52 years old Clinical indication: Other: L facial numbness, prior hemmorhagic stroke; Prior surgery TECHNIQUE: Imaging protocol: Computed tomography of the head without contrast. Radiation optimization: All CT scans at this facility use at least one of these dose optimization techniques: automated exposure control; mA and/or kV adjustment per patient size (includes targeted exams where dose is matched to clinical indication); or iterative reconstruction. COMPARISON: CT HEAD WITHOUT CONTRAST 09/18/2021 7:05 AM FINDINGS: Brain: There is a similar area of encephalomalacia in the left temporoparietal region. There is no evidence for large acute cortical infarct. No intracranial hemorrhage or extraaxial collection is identified. There is no significant intracranial mass effect. Cerebral ventricles: The ventricles and sulci are stable in configuration. Paranasal sinuses: Visualized sinuses are unremarkable. No fluid levels. Mastoid air cells: Visualized mastoid air cells are well aerated. Bones/joints: Prior left frontotemporoparietal craniotomy again present. No skull fracture is identified. Soft tissues: Unremarkable. IMPRESSION No CT evidence for acute intracranial abnormality or significant change since 09/18/21. THIS DOCUMENT HAS BEEN ELECTRONICALLY SIGNED BY JAGDEEP ATKINS MD FOR ANY QUESTIONS OR CONCERNS REGARDING THIS REPORT PLEASE CALL [facility] [phone] us Derrick Gaytan MD IMG CT ORDERABLES Final R esult * MAGNESIUM (03/03/2022 13:01 EDT) [facility] Magnesium 1.7 1.7 - 2.8 mg/dL 03/03/2022 15:09 EDT [facility] Blood VENOUS BLOOD / Unknown Venipuncture / Unknown 03/03/2022 13:01 EDT 03/03/2022 13:03 EDT Derrick Gaytan MD CHEMISTRY & BLOOD GAS ORD ERABLES Final Result [facility] [address] [place] [address] * (ABNORMAL) COMPREHENSIVE METABOLIC PANEL (CMP) (03/03/2022 13:01 EDT) [facility] Sodium 136 136 - 145 mmol/L 03/03[facility]2022 15:[facility] Potassium 3.3(L) 3.5 - 5.0 mmol/L 03/03/2022 15:09 [facility] Chloride 102 96 - 110 mmol/L 03/03/2022 15:09 [facility] CO2 Total 26 22 - 32 mmol/L 03/03/2022 15:09 [facility] Glucose 96 70 - 100 mg/dL 03/03/2022 15:09 [facility] BUN 18 10 - 26 mg/dL 03/03/2022 15:09 [facility] Creatinine 0.70 0.52 - 1.04 mg/dL 03/03/2022 15:09 [facility] eGFR 103 >60 mL/min/1.7 3m2 03/03/2022 15:09 [facility] Total Protein 5.5(L) 6.3 - 8.2 g/dL 03/03/2022 15:09 [facility] Albumin 2.8(L) 3.4 - 4.9 g/dL 03/03/2022 15:09 [facility] Alkaline Phosphatase 103 38 - 126 U/L 03/03/2022 15:09 [facility] AST 33 15 - 46 U/L 03/03/2022 15:09 [facility] ALT 21 <35 U/L 03/03/2022 15:09 [facility] Bilirubin, Total 0.4 <1.4 mg/dL 03/03/20 15:09 [facility] Calcium 9.0 8.5 - 10.5 mg/dL 03/03/2022 15:09 [facility] Albumin/Globulin Ratio 1.0 1.0 - 2.5 03/03/2022 15:09 [facility] Anion Gap 8 5 - 14 03/03/2022 15:09 [facility] Blood VENOUS BLOOD / Unknown Venipuncture / Unknown 03/03/2022 13:01 EDT 03/03/2022 13:03 EDT us Derrick Gaytan MD CHEMISTRY & BLOOD GAS ORD ERABLES Final Result [facility] [address] [place] [address] * (ABNORMAL) COMPLETE BLOOD COUNT AND DIFFERENTIAL (03/03/2022 13:01 EDT) WBC 3.78(L) 4.00 - 12.40 K/cmm 03/03/2022 13:06 [facility] RBC 3.87 3.86 - 5.04 M/cmm 03/03/2022 13:06 [facility] Hemoglobin 12.9 11.6 - 15.2 gm/dL 03/03/2022 13:06 [facility] HCT 38.5 34.9 - 44.4 % 03/03/2022 13:06 [facility] MCV 100(H) 81 - 98 fl 03/03/2022 13:06 [facility] MCH 33.3 26.7 - 33.3 pg 03/03/2022 13:06 [facility] MCHC 33.5 32.1 - 35.9 gm/dL 03/03/2022 13:06 [facility] RDW-CV 13.4 <14.7 % 03/03/2022 13:06 [facility] RDW-SD 49.0 <50.4 fl 03/03/2022 13:06 [facility] PLT 157 141 - 377 K/cmm 03/03/2022 13:06 [facility] MPV 10.1 9.5 - 12.7 fl 03/03/2022 13:06 [facility] % Neutrophils 60.8 % 03/03/2022 13:06 [facility] % Lymphocytes 33.9 % 03/03/2022 13:06 [facility] % Monocytes 4.5 % 03/03/2022 13:06 [facility] % Eosinophils 0.0 % 03/03/2022 13:06 [facility] % Basophils 0.5 % 03/03/2022 13:06 [facility] % Immature Grans 0.3 % 03/03/20 13:06 [facility] Absolute Neutrophils 2.30 2.20 - 8.85 K/cmm 03/03/2022 13:06 [facility] Absolute Lymphocytes 1.28 1.09 - 3.30 K/cmm 03/03/2022 13:06 EDT [facility] Absolute Monocytes 0.17 0.10 - 0.80 K/cmm 03/03/2022 13:06 [facility] Absolute Eosinophils 0.00(L) 0.03 - 0.61 K/cmm 03/03/2022 13:06 [facility] ABS Basophils 0.02 0.01 - 0.11 K/cmm 03/03/2022 13:06 [facility] Absolute Immature Grans 0.01 0.00 - 0.06 K/cmm 03/03/2022 13:06 [facility] Type of Differential: Auto 03/03/2022 13:06 [facility] Blood VENOUS BLOOD / Unknown Venipuncture / Unknown 03/03/2022 13:01 EDT 03/03/2022 13:03 EDT Derrick Gaytan MD PACKAGES & DNA PROBE JELANI CROSS Final Result [facility] [address] [place] [address] documented in this encounter Visit Diagnoses Diagnosis Acute urinary retention- Primary Other specified retention of urine Facial paresthesia documented in this encounter Administered Medications Inactive Administered Medications - up to 3 most recent administrations Medication Order MAR Action Action Date Dose Rate Site metoclopramide (REGLAN) injection 10 mg 10 mg, intravenous, NOW X1, 1 dose, On 03/03/22 at 1315, STAT Given 03/03/2022 13:03 EDT 10 mg ondansetron (PF) (ZOFRAN) injection 4 mg 4 mg, intravenous, NOW X1, 1 dose, On 03/03/22 at 1830, STAT Given 03/03/2022 19:44 EDT 4 mg sodium chloride 0.9 % BOLUS 1,000 mL 1,000 mL, intravenous, NOW X1, 1 dose, On 03/03/22 at 1315, STAT New Bag 03/03/2022 13:47 EDT 1,000 mL sodium chloride 0.9 % BOLUS 500 mL 500 mL, intravenous, NOW X1, 1 dose, On 03/03/22 at 1500, STAT New Bag 03/03/2022 14:36 EDT 500 mL sodium chloride 0.9 % BOLUS 500 mL 500 mL, intravenous, NOW X1, 1 dose, On 03/03/22 at 1645, STAT New Bag 03/03/2022 16:32 EDT 500 mL documented in this encounter Active and Recently Administered Medications Times are shown in EDT. Scheduled Medication Order 03/01/2022 03/02/2022 03/03/2022 metoclopramide (REGLAN) injection 10 mg (COMPLETED) 10 mg, intravenous, NOW X1, 1 dose, On 03/03/22 at 1315, STAT 1303 (Given - Provid er: Simona Schuster, RN) ondansetron (PF) (ZOFRAN) injection 4 mg (COMPLETED) 4 mg, intravenous, NOW X1, 1 dose, On 03/03/22 at 1830, STAT 1944 (Given - Provid er: Shawn Murphy, AZALEA) sodium chloride 0.9 % BOLUS 1,000 mL (COMPLETED) 1,000 mL, intravenous, NOW X1, 1 dose, On 03/03/22 at 1315, STAT 1347 (New Bag - Prov ider: Shawn Murphy, RN)1431 (Completed - Provider: Simona Schuster, RN) sodium chloride 0.9 % BOLUS 500 mL (COMPLETED) 500 mL, intravenous, NOW X1, 1 dose, On 03/03/22 at 1500, STAT 1436 (New Bag - Prov ider: Simona Schuster, RN)1502 (Completed - Provider: Shawn Murphy, RN) sodium chloride 0.9 % BOLUS 500 mL (COMPLETED) 500 mL, intravenous, NOW X1, 1 dose, On 03/03/22 at 1645, STAT 1632 (New Bag - Prov ider: Shawn Murphy, RN)1706 (Completed - Provider: Shawn Murphy, RN) documented in this encounter Care Teams Education Site Manager Relationship Specialty Start Date End Date Romario Hairston MD [address] [place] [id number] PCP - General 07/06/20 documented as of this encounter
--- OUTSIDE RECORDS SUMMARY | 2024-12-03 15:56 | XMS_ITS | Encounter Summary ---
Author Organization [facility] Address [address] [place] [address] Care Team Providers Care Web Producer Name Role Phone Romario Hairston MD Primary Care Provider +1- [phone] Reason for Visit * Reason Comments Altered Mental Status Pt presents dische velled and confused, is unable to state her . Her partner states she has a hx of TBI; baseline mental status difficult to determine. Emesis Pt has vomitted x2 t jemal, is pale and listless, unsteady on her feet requiring strong assist to transfer. Encounter Details Date Type Department Care Team (Late st Contact Info) Description 02/22/2022 17:40 EDT - 02/22/2022 21:15 EDT Emergency [facility] Emergency Department [address] [place] [address] Sherman Ponce MD [address] [place] [address] Non-intractable vomiting with nausea, unspecified [...] Sign Reading Time Taken Comments Blood Pressure 128/72 02/22/20222046 EDT Pulse 98 02/22/20222046 EDT Temperature 36.3 ??C (97.3 ??F) 02/22/2022 1738 EDT Respiratory Rate 18 02/22/20222046 EDT Oxygen Saturation 99% 02/22/20222046 EDT Inhaled Oxygen Concentration - - Weight 59 kg (130 lb) 02/22/2022 173 EDT Height - - Body Mass Index 22.31 01/16/2021 0937 EST documented in this encounter [...] this encounter Discharge Instructions * Discharge Instructions* Sherman Ponce MD - 02/22/2022 20:45 EDT Use nausea medicine as needed If you develop worsening abdominal pain, fainting spells, fever greater than 100.4 degrees, difficulty breathing or other concerning symptoms return to the ED. Call Dr. Polk tomorrow morning to discuss your medications and whether changes should be considered documented in this encounter Medications at Time [...] BOTH EYES FOUR TIMES DAILY 02/04/2022 4 ketotifen (ZADITOR) 0.025 % (0.035 %) ophthalmic solution Not filling 08/09/2020 2 lacosamide (VIMPAT) 50 mg tablet Take 1 Tablet by mouth 2 times daily. Daily Max: 100 mg 60 Tablet 2 11/27/2021 2 lactulose (CHRONULAC) 10 gram/15 mL solution TAKE 15 ML BY MOUTH EVERY DAY NEEDED 11/16/2020 4 lamoTRIgine (LAMICTAL) 100 mg tablet Take 1 Tablet by mouth 2 times daily. 60 Tablet 3 03/16/2022 2 lamoTRIgine (LAMICTAL) 25 mg tablet Weeks 1-2: take 1 25mg tablet twice a day. Weeks 3-4 take 2 25mg tablets twice a day. New prescription 100mg tabs, take 1 tab twice a day from week 5 and on. 84 Tablet 02/16/2022 2 magnesium oxide 240 mg magnesium powder in [...] Code Departure Means Destination Home or Self Usp documented in this encounter ED Notes * Sherman Ponce MD - 02/22/20222029 EDT Emergency Department Visit Assessment and ED Course Presents with vomiting and generalized weakness. She has no signs of headache or change in mental status to suggest intracranial hemorrhage (is anticoagulated due to prior history of dural venous thrombosis leading to hemorrhage) not repeated a head CT. Metabolic evaluation is normal without signs of anemia, acute kidney injury, hypokalemia or other metabolic derangement She was given IV fluids and nausea medicine Final diagnoses: None Disposition: No disposition on file Chief complaint: Vomiting HPI Napoleon White is a 52 y.o. female who presents to the ED for vomiting. 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 Polk. She started a new med in the last week or 2. No decreased appetite, sensation of malaise, vomited twice today. Her mental status is at baseline according to her partner. She does not haveheadache or fever. She has not had fevers or chills, chest pain, shortness of breath, diarrhea, black or bloody stools. She has generalized weakness, difficulty getting up and transferring today. Shehas chronic intermittent abdominal pain which is still present today unchanged for which she has had CT scans. No diarrhea, black or bloody stools, dysuria or hematuria, focal weakness, numbness or tingling, vision change, seizure or syncope, palpitations or other findings on full 10 point review of systems History was provided by: Patient Patient's pertinent PMH, FH, SH were reviewed and edited as necessary. ROS A 10-point review of systems was performed. The patient answered negative to all questions with theexceptions of those explicitly detailed as positives in the HPI. Pertinent negatives are also explicitly stated. Physical Exam BP (!) 139/97 Pulse (!) 110 Temp 36.3 ??C (97.3 ??F) (Temporal) Resp 18 Wt 59 kg (130 lb) SpO2 99% BMI 22.31 kg/m?? A medical screening exam was performed. Physical Exam Vitals and nursing note reviewed. Constitutional: General: She is not in acute distress. Appearance: She is well-developed and well-nourished. She is not diaphoretic. HENT: Head: No signs of injury. Nose: Nose normal. Mouth/Throat: Mouth: Mucous membranes are moist. Pharynx: Oropharynx is clear. Eyes: General: No scleral icterus. Extraocular Movements: EOM normal. Conjunctiva/sclera: Conjunctivae normal. Pupils: Pupils are equal, round, and reactive to light. Cardiovascular: Rate and Rhythm: Regular rhythm. Tachycardia present. Heart sounds: Normal heart sounds. No systolic murmur is present. Pulmonary: Effort: Pulmonary effort is normal. Breath sounds: Normal breath sounds. Chest: Chest wall: No tenderness. Abdominal: General: Bowel sounds are normal. Palpations: Abdomen is soft. Tenderness: There is no abdominal tenderness. There is no guarding or rebound. Musculoskeletal: General: Normal range of motion. Cervical back: Normal range of motion and neck supple. Right lower leg: No edema. Left lower leg: No edema. Skin: General: Skin is warm and dry. Neurological: Mental Status: She is alert. Cranial Nerves: No cranial nerve deficit. Comments: Slight receptive aphasia, baseline Psychiatric: Mood and Affect: Mood and affect normal. Behavior: Behavior normal. Thought Content: Thought content normal. An EKG was obtained and independently interpreted. Sinus tachycardia, normal axis, normal intervals, no significant ST segment changes, interpreted independently contemporaneously by emergency physician. Laboratory results independently reviewed. Procedures Procedures * Mary Brennan - 02/22/2022 1828 EDT 12 Lead EKG Performed by Mary Brennan and shown to Sherman Ponce MD. * Shawn Welch RN - 02/22/2022 1753 EDT 52 yoa c/o LLQ/RLQ pain, sharp, 6/10, over multiple days, unable to determine extent d/t poor history. Partner at bedside states pt, who is confused, is at baseline. Partner states pt had a stroke inthe past and hx of seizure disorder. Pt was seen in PCP office about a week ago and CT performed w/ no real findings other than her gallbladder is a little stretched out. Partner states pt ramila recently had a medication change a few days ago and reports increasing nausea w/ vomiting x2 today. Parner has concerns that medication change is causing nausea and vomiting. documented in this encounter Plan of Treatment Upcoming Encounters Date Type Department Care Team (Late st Contact Info) Description 03/04/2025 14:00 EDT Telemedicine [facility] [address] [place] [address] Brayan Polk MD 130 [facility] [address] [place] [phone] 07/14/2025 14:30 EDT Office Visit [facility] Cancer [facility] Hematology & Oncology - [facility] [address], [place] [phone] Evin Maria MD 111 [facility], [address] [place] [address] documented as of this encounter Procedures Procedure Name Priority Date/Time Associated Diagnosis Comments ECG REPORT - SCANNED 02/23/2022 9:03 EDT COMPLETE BLOOD COUNT AND DIFFERENTIAL STAT 02/22/2022 18:28 EDT LAMOTRIGINE Routine 02/22/2022 18:27 EDT TSH Routine 02/22/2022 18:27 EDT LIPASE STAT 02/22/2022 18:27 EDT COMPREHENSIVE METABOLIC PANEL (CMP) STAT 02/22/2022 18:27 EDT EKG 12-LEAD STAT 02/22/2022 18:26 EDT documented in this encounter Results * ECG REPORT - SCANNED (02/23/2022 9:03 EDT) 02/23/2022 9:03 EDT us Scan 2 Venereal Disease Control Head PROCEDURE/MINOR SURGICAL OR DERABLES Final Result * (ABNORMAL) COMPLETE BLOOD COUNT AND DIFFERENTIAL (02/22/2022 18:28 EDT) [facility] WBC 3.85(L) 4.00 - 12.40 K/cmm 02/22/2022 18:41 [facility] RBC 3.70(L) 3.86 - 5.04 M/cmm 02/22/2022 18:41 [facility] Hemoglobin 12.5 11.6 - 15.2 gm/dL 02/22/2022 18:41 [facility] HCT 37.0 34.9 - 44.4 % 02/22/2022 18:41 [facility] MCV 100(H) 81 - 98 fl 02/22/2022 18:41 [facility] MCH 33.8(H) 26.7 - 33.3 pg 02/22/2022 18:41 [facility] MCHC 33.8 32.1 - 35.9 gm/dL 02/22/2022 18:41 [facility] RDW-CV 13.5 <14.7 % 02/22/2022 18:41 [facility] RDW-SD 50.2 <50.4 fl 02/22/2022 18:41 [facility] PLT 189 141 - 377 K/cmm 02/22/2022 18:41 [facility] MPV 10.2 9.5 - 12.7 fl 02/22/2022 18:41 [facility] % Neutrophils 58.4 % 02/22/2022 18:41 [facility] % Lymphocytes 34.8 % 02/22/2022 18:41 [facility] % Monocytes 6.0 % 02/22/2022 18:41 [facility] % Eosinophils 0.0 % 02/22/2022 18:41 [facility] % Basophils 0.5 % 02/22/2022 18:41 [facility] % Immature Grans 0.3 % 02/23/20 18:41 [facility] Absolute Neutrophils 2.25 2.20 - 8.85 K/cmm 02/22/2022 18[facility]41 [facility] Absolute Lymphocytes 1.34 1.09 - 3.30 K/cmm 02/22/2022 18:[address] [facility] Absolute Monocytes 0.23 0.10 - 0.80 K/cmm 02/22/2022 18:41 [facility] Absolute Eosinophils 0.00(L) 0.03 - 0.61 K/cmm 02/22/2022 18:[address] [facility] ABS Basophils 0.02 0.01 - 0.11 K/cmm 02/22/2022 18:41 [facility] Absolute Immature Grans 0.01 0.00 - 0.06 K/cmm 02/22/2022 18:41 [facility] Type of Differential: Auto 02/22/2022 18:41 [facility] Blood VENOUS BLOOD / Unknown Venipuncture / Unknown 02/22/2022 18:28 EDT 02/22/2022 18:30 EDT us Sherman Ponce MD PACKAGES & DNA PROBE ORDERAB LES Final Result Performing Organization Address City/State/[facility] Co de Phone Number [facility] [address] [place] [address] * (ABNORMAL) LAMOTRIGINE (02/22/2022 18:27 EDT) Lamotrigine, S 1.9(L) 2.5 - 15.0 mcg/mL 02/25/2022 13:00 EDT [facility] Comment: ADDITIONAL INFORMATION This test was developed and its performance characteristics determined by [facility] in a manner consistent with CLIA requirements. This test has not been cleared or approved by the U.S. Food and Drug Administration. Test Performed by: [facility] - [address] [address] Windows Security Analyst: Kani Shay M.D. Ph.D.; CLIA# [id number] Blood VENOUS BLOOD / Unknown Venipuncture / Unknown 02/22/2022 18:27 EDT 02/22/2022 19:45 EDT Sherman Ponce MD CHEMISTRY & BLOOD GAS ORDERA BLES Final Result [facility] [address] [place] [address] * LIPASE (02/22/2022 18:27 EDT) Pathologist [facility] Lipase 38 <251 U/L 02/22/2022 19:03 [facility] Blood VENOUS BLOOD / Unknown Venipuncture / Unknown 02/22/2022 18:27 EDT 02/22/2022 18:30 EDT Sherman Ponce MD CHEMISTRY & BLOOD GAS ORDERA BLES Final Result Performing Organization Address City/[facility]/ZIP Co de Phone Number [facility] [address] [place] [address] * (ABNORMAL) COMPREHENSIVE METABOLIC PANEL (CMP) (02/22/2022 18:27 EDT) Pathologist [facility] Sodium 134(L) 136 - 145 mmol/L 02/22/2022 19:03 [facility] Potassium 4.0 3.5 - 5.0 mmol/L 02/22/2022 19:03 [facility] Chloride 103 96 - 110 mmol/L 02/22/2022 19:03 [facility] CO2 Total 22 22 - 32 mmol/L 02/22/2022 19:03 [facility] Glucose 98 70 - 100 mg/dL 02/22/2022 19:03 [facility] BUN 8(L) 10 - 26 mg/dL 02/22/2022 19:03 [facility] Creatinine 0.68 0.52 - 1.04 mg/dL 02/22/2022 19:03 [facility] eGFR 99 >60 mL/min/1.7 3m2 02/22/2022 19:03 [facility] Total Protein 6.0(L) 6.3 - 8.2 g/dL 02/22/2022 19:03 [facility] Albumin 3.1(L) 3.4 - 4.9 g/dL 02/22/2022 19:03 [facility] Alkaline Phosphatase 98 38 - 126 U/L 02/22/2022 19:03 [facility] AST 40 15 - 46 U/L 02/22/2022 19:03 [facility] ALT 23 <35 U/L 02/22/2022 19:03 [facility] Bilirubin, Total 0.4 <1.4 mg/dL 02/23/20 19:03 [facility] Calcium 8.8 8.5 - 10.5 mg/dL 02/22/2022 19:03 [facility] Albumin/Globulin Ratio 1.1 1.0 - 2.5 02/22/2022 19:03 [facility] Anion Gap 9 5 - 14 02/22/2022 19:03 [facility] Blood VENOUS BLOOD / Unknown Venipuncture / Unknown 02/22/2022 18:27 EDT 02/22/2022 18:30 EDT us Sherman Ponce MD CHEMISTRY & BLOOD GAS ORDERA BLES Final Result Performing Organization Address City/State/[facility] Co de Phone Number [facility] [address] [place] [address] * TSH (02/22/2022 18:27 EDT) TSH 4.44 0.47 - 4.68 ??IU/mL 02/22/2022 19:[address] [facility] Blood VENOUS BLOOD / Unknown Venipuncture / Unknown 02/22/2022 18:27 EDT 02/22/2022 18:[address] [facility] - 02/22/2022 19:37 EDT The results of this assay can be falsely lowered due to the consumption of Biotin. us Sherman Ponce MD CHEMISTRY & BLOOD GAS ORDERA BLES Final Result [facility] [address] [place] [address] * EKG 12-LEAD (02/22/2022 18:26 EDT) 02/22/2022 18:[address] [facility] - 02/23/2022 8:58 EDT ? [facility] ? Test Date: ?2022-02-22 Pat Name: ? NAPOLEON WHITE ? Department: ? Room: ? CHALL01 Gender: ? Female ? Gastroenterology Nurse Practitioner: ?? CH : ?1970 ? Requested By: GENNA Palacios Order Number: [id number] ? Chioma POP: ?? BRETT HANNA MD ? Measurements Intervals ?[place] ? Rate: ? 110 ?P: ?65 IL: ? 142 ?QRS: ?52 QRSD: ? 72 ? T: ?46 QT: ? 336 ? QTc: ?454 ? Interpretive Statements Sinus tachycardia Compared to ECG 10/11/2021 17:32:07 No significant changes I reviewed the tracing and have either agreed or edited the findings in this report. Electronically Signed On 02-23-2022 8:58:54 EDT by BRETT HANNA MD. Procedure Note Brett Hanna MD - 02/23/2022 [facility] Test Date: 2022-02-22 Pat Name: NAPOLEON WHITE Department: Room: [place] [address] Gender: Female Gastroenterology Nurse Practitioner: : 1970 Requested By: GENNA Palacios Order Number: [id number] Chioma MD: BRETT HANNA MD Measurements Intervals [place] Rate: 110 P: 65 IL: 142 QRS: 52 QRSD: 72 T: 46 QT: 336 QTc: 454 Interpretive Statements Sinus tachycardia Compared to ECG 10/11/2021 17:32:07 No significant changes I reviewed the tracing and have either agreed or edited the findings inthis report. Electronically Signed On 02-23-2022 8:58:54 EDT by BRETT RM. us Sherman Ponce MD CARDIAC ECG ORDERABLES Final Result [facility] documented in this encounter Visit Diagnoses Diagnosis Non-intractable vomiting with nausea, unspecified vomiting type- Primary documented in this encounter Administered Medications Inactive Administered Medications - up to 3 most recent administrations Medication Order MAR Action Action Date Dose Rate Site ondansetron (PF) (ZOFRAN) injection 4 mg 4 mg, intravenous, NOW X1, 1 dose, On Tiffanie 02/22/22 at 1845, Routine Given 02/22/2022 18:39 EDT 4 mg sodium chloride 0.9 % BOLUS 1,000 mL 1,000 mL, intravenous, NOW X1, 1 dose, On Tiffanie 02/22/22 at 1845, STAT New Bag 02/22/2022 18:40 EDT 1,000 mL documented in this encounter Active and Recently Administered Medications Times are shown in EDT. Scheduled Medication Order 02/20/2022 02/21/2022 02/22/2022 ondansetron (PF) (ZOFRAN) injection 4 mg (COMPLETED) 4 mg, intravenous, NOW X1, 1 dose, On Tiffanie 02/22/22 at 1845, Routine 1839 (Given - Provid er: Shawn Welch RN) sodium chloride 0.9 % BOLUS 1,000 mL (COMPLETED) 1,000 mL, intravenous, NOW X1, 1 dose, On Tiffanie 02/22/22 at 1845, STAT 1840 (New Bag - Prov ider: Shawn Welch RN)2055 (Completed - Provider: Shawn Welch RN) documented in this encounter Care Teams Web Producer Relationship Specialty Start Date End Date Romario Hairston MD [address] [place] [address] PCP - General 07/06/20 documented as of this encounter
--- OUTSIDE RECORDS SUMMARY | 2024-12-03 15:56 | XMS_ITS | Encounter Summary ---
Author Organization [facility] Address [address] [place] [address] Care Team Providers Care Business Development Manager Name Role Phone Romario Hairston MD Primary Care Provider +1- [phone] Encounter Details Date Type Department Care Team (Late st Contact Info) Description 11/23/2021 Orders Only [facility] [address] [place] [address] Vashti Grover RN Social History Tobacco Use [...] Contact Info) Description 03/04/2025 14:00 EDT Telemedicine [facility] [address] [place] [phone] Brayan Polk MD [address] [facility] [address] [place] [address] 07/14/2025 14:30 EDT Office Visit [facility] Cancer Center Hematology & Oncology - [address] [phone] Evin Maria MD [address] [place] [address], [address] [place] [phone] documented as of this encounter Visit Diagnoses Not on filedocumented in this encounter Discontinued Medications Medication Sig Discontinue Reason Start Date End Da te zonisamide (ZONEGRAN) 100 mg capsule Take 3 Capsules by mouth at bedtime. Side effects 09/05/2021 11/23/2021 documented as of this encounter Care Teams Business Development Manager Relationship Specialty Start Date End Date Romario Hairston MD [address], [address] [id number] PCP - General 07/06/20 documented as of this encounter
--- OUTSIDE RECORDS SUMMARY | 2024-12-03 15:57 | XMS_ITS | Encounter Summary ---
Author Organization [facility] Address [address] [place] [address] Care Team Providers Care Saw Superintendent Name Role Phone Romario Hairston MD Primary Care Provider +1- [phone] Reason for Visit * Reason Onset Date Comments Medication Management 10/11/2021 Encounter Details Date Type Department Care Team (Late st Contact Info) Description 10/11/2021 Telephone [facility] [address] [place] [address] Brayan Polk MD 130 [facility] [address] [place] [address] Medication Management Social History Tobacco [...] have Coronavirus / COVID-19? No / Unsure 10/11/2021 13:34 EST documented as of this encounter Functional [...] Telephone Encounter - Brayan Polk MD - 10/11/2021 1248 EST Talked to Ever. Ynes has been having nausea vomiting and diarrhea for a week or so and unable to keep food or medications down consistently. He is taking her to the ED. I called the ED to give jareda heads up. Sounds mostly to me like she has a GI bug and I would probably just try to continue zonisamide at current dosage. UPDATE: ED provider gathered a story that sounded more like subacute mild anorexia with intermittent loose stool and nausea and only occasional vomiting over much more than just a week. Concern is for side effects of zonisamide. I suggested decreasing to 200 mg once daily and adding lacosamide 50 mg twice daily. * Telephone Encounter - Rosalinda Ashton - 10/11/2021 0809 EST Ever called and states pt had seizure med increased - she has not had any seizures since then she does have stomach problems, and is sleepy. She is not eating well. He is working on that. She lost her speech for a minute last night and then it came back- He doesn't dare leave her. He is also calling dr magnus alanis. documented in this encounter Plan of Treatment Upcoming Encounters Date Type Department Care Team (Late st Contact Info) Description 03/04/2025 14:00 EDT Telemedicine [facility] [address] [place] [address] Brayan Polk MD 130 [facility] [address] [place] [phone] 07/14/2025 14:30 EDT Office Visit [facility] Cancer Center Hematology & Oncology - [address] [phone] Evin Maria MD 111 [facility], [address] [place] [address] documented as of this encounter Visit Diagnoses Not on filedocumented in this encounter Care Teams Saw Superintendent Relationship Specialty Start Date End Date Romario Hairston MD [address], [address] [phone] PCP - General 07/06/20 documented as of this encounter
--- OUTSIDE RECORDS SUMMARY | 2024-12-03 15:57 | XMS_ITS | Encounter Summary ---
Author Organization [facility] Address [address] [place] [address] Care Team Providers Care Construction Trades Teacher Name Role Phone Romario Hairston MD Primary Care Provider +1- [phone] Encounter Details Date Type Department Care Team (Late st Contact Info) Description 09/18/2021 Results Only [facility] - [facility] - Main [address] [address] Eleazar Ozuna MD [address] [place] [address] Social History Tobacco Use Types Packs/Day Years Used Date Smoking Tobacco: Former Cigarettes 0.3 15 Smokeless Tobacco: Never Alcohol [...] have Coronavirus / COVID-19? No / Unsure 09/05/2021 8:26 EDT documented as of this encounter Functional Status * Are you deaf or do you have serious difficulty hearing? Answer Date of Assessment Author No 07/16/2020 18:38 EDT Lisa Broderick RN * Are you blind or do [...] EDT Telemedicine [facility] [address] [place] [address] Brayan Polk MD [address] [place] [address] [address] [place] [phone] 07/14/2025 14:30 EDT Office Visit [facility] Cancer Center Hematology & Oncology - [address] [address] Evin Maria MD [address] [place] [address], Level 2 [place] [address] documented as of this encounter Procedures Procedure Name Priority Date/Time Associated Diagnosis Comments AMMONIA Routine 09/18/2021 6:45 EDT COMPLETE BLOOD COUNT WITH DIFFERENTIAL (AUTO) Routine 09/18/2021 6:20 EDT COMPREHENSIVE METABOLIC PANEL (CMP) Routine 09/18/2021 6:20 EDT documented in this encounter Results * AMMONIA (09/18/2021 6:45 EDT) Pathologist [facility] Ammonia 21 9.0 - 30.0 umol/L 09/18/2021 7:42 EDT [facility] Comment: Specimen SLIGHTLY hemolyzed. ??Interpret results with caution. Glucose at or above 600 mg/dl can cause a decrease of 8 to 40 umol/L in ammonia concentration. 09/18/2021 6:45 EDT 09/18/2021 6:51 EDT Eleazar Ozuna MD CHEMISTRY & BLOOD GAS ORDERABLES Final Result Performing Organization Address City/State/[facility] Co de Phone Number [facility] [address] [place] [address] * (ABNORMAL) COMPREHENSIVE METABOLIC PANEL (CMP) (09/18/2021 6:20 EDT) [facility] Albumin % 3.6 3.4 - 4.9 g/dL 09/18/2021 7:06 [facility] ALKALINE PHOSPHATASE - [facility] 267(H) 38 - 126 U/L 09/18/2021 7:06 [facility] BILIRUBIN TOTAL 0.5 0.2 - 1.3 mg/dL 09/18/2021 7:06 [facility] BUN - [facility] 4(L) 10 - 26 mg/dL 09/18/2021 7:06 [facility] CALCIUM - [facility] 10.4 8.5 - 10.5 mg/dL 09/18/2021 7:06 [facility] Chloride 98 96 - 110 mmol/L 09/18/2021 7:06 [facility] CO2 Total 28 22 - 32 mEq/L 09/18/2021 7:06 [facility] CREATININE 0.88 0.52 - 1.04 mg/dL 09/18/2021 7:06 [facility] eGFR >60 09/18/2021 7:06 [facility] Comment: Chronic renal impairment is defined as GFR <60 Multiply result by 1.210 for patients. eGFR calculated using the IDMS-traceable MDRD Study Equation. ??(effective 09/27/2014) Anion Gap 8 0 - 18 09/18/2021 7:06 [facility] GLUCOSE - [facility] 99 70 - 100 mg/dL 09/18/2021 7:06 [facility] Potassium 4.6 3.5 - 5.0 mEq/L 09/18/2021 7:44 [facility] Sodium 134(L) 136 - 145 mEq/L 09/18/2021 7:06 [facility] TOTAL PROTEIN - [facility] 6.1(L) 6.2 - 8.2 gm/dL 09/18/2021 7:06 [facility] SGOT/AST - [facility] 28 14 - 36 U/L 09/18/2021 7:06 [facility] SGPT/ALT - [facility] 20 0 - 35 U/L 7:06 [facility] 09/18/2021 6:20 EDT 09/18/2021 6:33 EDT Eleazar Ozuna MD CHEMISTRY & BLOOD GAS ORDERABLES Final Result [facility] [address] [place] [address] * (ABNORMAL) COMPLETE BLOOD COUNT WITH DIFFERENTIAL (AUTO) (09/18/2021 6:20 EDT) ABSOLUTE NEUTROPHIL COUN - [facility] 2.4 2.2 - 8.85 10e3/uL 09/18/2021 6:39 EDT [facility] BASO # - [facility] 0.02 0.01 - 0.11 10e/uL 09/18/2021 6:39 EDT [facility] BASO % - [facility] 0 0 - 2 % 09/18/2021 6:39 [facility] EOS # - [facility] 0(L) 0.03 - 0.61 10e3/ul 09/18/2021 6:39 [facility] EOS % - [facility] 0 0 - 5 % 09/18/2021 6:39 [facility] GRAN % - [facility] 50.3 40 - 80 % 09/18/2021 6:39 [facility] HEMATOCRIT - [facility] 34.9 34.9 - 44.4 % 09/18/2021 6:39 [facility] HEMOGLOBIN - [facility] 12.1 11.6 - 15.2 g/dl 09/18/2021 6:39 [facility] IG# - [facility] 0.02 0 - 0.7 10e3/uL 09/18/2021 6:39 [facility] IG% - [facility] 0.4 0 - 0.9 % 09/18/2021 6:39 [facility] LYMPH # - [facility] 2.1 1.09 - 3.3 10e3/ul 09/18/2021 6:39 [facility] LYMPH% - [facility] 43.4(H) 20 - 40 % 09/18/2021 6:39 [facility] MEAN CORPUSCULAR HGB - [facility] 32.6 26.7 - 33.3 pg 09/18/2021 6:39 [facility] MEAN CORPUSCULAR HGB CONC - [facility] 34.7 32.1 - 35.9 g/dL 09/18/2021 6:39 [facility] MEAN CELL VOLUME - CV 94.1 81 - 98 fl 09/18/2021 6:39 [facility] MONO # - [facility] 0.3 0.1 - 0.8 10e3/uL 09/18/2021 6:39 [facility] MONO% - [facility] 5.5 0 - 12 % 09/18/2021 6:39 [facility] PLATELET COUNT 220 141 - 377 10e3/ul 09/18/2021 6:39 [facility] RED BLOOD COUNT - [facility] 3.71(L) 3.86 - 5.04 10e6/ul 09/18/2021 6:39 EDT [facility] RED CELL DISTRI WIDTH - [facility] 15.6 <14.7 % 09/18/2021 6:39 EDT [facility] WHITE BLOOD COUNT - [facility] 4.8 4.0 - 12.4 10e3/ul 09/18/2021 6:39 EDT [facility] 09/18/2021 6:20 EDT 09/18/2021 6:34 EDT us Eleazar Ozuna MD HEMATOLOGY & PF4 ORDER [place] Final Result [facility] [address] [place] [address] documented in this encounter Visit Diagnoses Not on filedocumented in this encounter Care Teams Construction Trades Teacher Relationship Specialty Start Date End Date Romario Hairston MD [address] [place] [address] PCP - General 07/06/20 documented as of this encounter
--- OUTSIDE RECORDS SUMMARY | 2024-12-03 15:57 | XMS_ITS | Encounter Summary ---
Author Organization [facility] Address [address] [place] [address] Care Team Providers Care Facility Maintenance Helper Name Role Phone Romario Hairston MD Primary Care Provider +1- [phone] Encounter Details Date Type Department Care Team (Latest Contact Info) Description 02/02/2021 Travel Social History Tobacco Use Types Packs/Day [...] have Coronavirus / COVID-19? No / Unsure 02/02/2021 15:54 EST documented as of this encounter Functional [...] Contact Info) Description 03/04/2025 14:00 EDT Telemedicine [facility] [address] [place] [id number] Brayan Polk MD [address] [place] [address] [place] [address] 07/14/2025 14:30 EDT Office Visit [facility] Hematology & Oncology - [address] [phone] Evin Maria MD [address] [facility], Level 2 [place] [address] documented as of this encounter Visit Diagnoses Not on filedocumented in this encounter Care Teams Facility Maintenance Helper Relationship Specialty Start Date End Date Romario Hairston MD [address], [address] [id number] PCP - General 07/06/20 documented as of this encounter
--- OUTSIDE RECORDS SUMMARY | 2024-12-03 15:57 | XMS_ITS | Encounter Summary ---
Author Organization [facility] Address [address] [place] [address] Care Team Providers Care Bell Staff Name Role Phone Romario Hairston MD Primary Care Provider +1- [phone] Reason for Visit * Reason Onset Date Comments Prior Auth, Medication 10/12/2021 Encounter Details Date Type Department Care Team (Late st Contact Info) Description 10/12/2021 Telephone [facility] [address] [place] [address] Brayan Polk MD [address] [facility] [address] [place] [address] Prior Auth, Medication Social History Tobacco Use Types Packs/Day Years [...] of Assessment Author Yes 07/16/2020 18:38 Lisa Mruo RN * Because of a physical, mental, [...] Telephone Encounter - Vashti Grover RN - 10/12/2021 1615 EST Received notice that 50 mg tabs of Vimpat are approved through 10/12/2022. Ever is aware. * Telephone Encounter - Vashti Grover RN - 10/12/2021 1430 EST Sent PA request to Medicaid via Covermymeds. * Telephone Encounter - Rosalinda Ashton - 10/12/2021 1309 EST [phone] Ever lacosamide needs a PA It was Prescribed from the er yesterday documented in this encounter Plan of Treatment Upcoming Encounters Date Type Department Care Team (Late st Contact Info) Description 03/04/2025 14:00 EDT Telemedicine [facility]rology Clinic [address] [place], [place] [address] Brayan Polk MD [address] [facility] [address] [place] [phone] 07/14/2025 14:30 EDT Office Visit [facility] Cancer Center Hematology & Oncology - [address] [address] Evin Maria MD 111 [facility], Level 2 [place] [phone] documented as of this encounter Visit Diagnoses Not on filedocumented in this encounter Care Teams Bell Staff Relationship Specialty Start Date End Date Romario Hairston MD [address], [address] [place], [place] [address] PCP - General 07/06/20 documented as of this encounter
--- OUTSIDE RECORDS SUMMARY | 2024-12-03 15:57 | XMS_ITS | Encounter Summary ---
Author Organization [facility] Address [address] [place] [address] Care Team Providers Care Mortgage Consultant Name Role Phone Romario Hairston MD Primary Care Provider +1- [phone] Reason for Visit * Reason Comments Other Encounter Details Date Type Department Care Team (Late st Contact Info) Description 04/14/2021 Refill [facility] Cancer Center Hematology & Oncology - [address] [address] Evin Maria MD [address] [place] [address], [address] [place] [address] Other Social History Tobacco Use Types Packs/Day [...] 1 TABLET BY MOUTH TWICE DAILY 60 Tab 6 04/17/2021 11/07/2021 documented in this encounter Plan of Treatment Upcoming Encounters Date Type Department Care Team (Late st Contact Info) Description 03/04/2025 14:00 EDT Telemedicine Health system - [facility] Neu[facility] Clinic [address] [place] [id number] Brayan Polk MD [address] [place] [address] [address] [place] [address] 07/14/2025 14:30 EDT Office Visit [facility] Cancer Center Hematology & Oncology - [address] [address] Evin Maria MD [address] [place] [address] [address] [place] [address] documented as of this encounter Visit Diagnoses Not on filedocumented in this encounter Discontinued Medications Medication Sig Discontinue Reason Start Date End Da te apixaban (ELIQUIS) 2.5 mg tablet Take 1 Tab by mouth 2 times daily. 09/20/2020 04/17/2021 documented as of this encounter Additional Health Concerns Infection Onset Date Last Indicated Resolved Time R/O COVID-19 Comment:Negative result 03/07/2022 03/07/2022 03/07/2022 9:37 EDT R/O COVID-19 01/28/2024 01/28/2024 01/29/2024 0:27 EST documented as of this encounter Care Teams Mortgage Consultant Relationship Specialty Start Date End Date Romario Hairston MD [address], [address] [place] [address] PCP - General 07/06/20 documented as of this encounter
--- OUTSIDE RECORDS SUMMARY | 2024-12-03 15:57 | XMS_ITS | Encounter Summary ---
Author Organization [facility] Address [address] [place] [address] Care Team Providers Care Locomotive Engineer Diesel Name Role Phone Romario Hairston MD Primary Care Provider +1- [phone] Reason for Visit * Reason Onset Date Comments Medication Management 09/18/2021 Encounter Details Date Type Department Care Team (Late st Contact Info) Description 09/18/2021 [facility]phone [facility] [address] [place] [address] Brayan Polk MD 130 [facility] [address] [place] [address] Medication Management Social History Tobacco [...] Telephone Encounter - Vashti Grover RN - 09/18/2021 1638 EDT See other TE with same date * Telephone Encounter - Rita Del Castillo - 09/18/2021 1611 EDT Ever needs to know how much Zonisamide to give Ynes lorenzo. documented in this encounter Plan of Treatment Upcoming Encounters Date Type Department Care Team (Late st Contact Info) Description 03/04/2025 14:[address] [facility] Neurology Clinic [address] [place] [address] Brayan Polk MD 130 [facility] [address] [place] [address] 07/14/2025 14:30 EDT Office Visit [facility] Cancer Center Hematology & Oncology - [facility] [address] [place], [place] [phone] Evin Maria MD 111 [facility], [facility], Level 2 [place] [phone] documented as of this encounter Visit Diagnoses Not on filedocumented in this encounter Care Teams Locomotive Engineer Diesel Relationship Specialty Start Date End Date Romario Hairston MD [address], [address] [phone] PCP - General 07/06/20 documented as of this encounter
--- OUTSIDE RECORDS SUMMARY | 2024-12-03 15:57 | XMS_ITS | Encounter Summary ---
Author Organization [facility] Address [address] [place] [address] Care Team Providers Care Mold Tooler Name Role Phone Romario Hairston MD Primary Care Provider +1- [phone] Reason for Visit * Reason Onset Date Comments Prior Auth, Medication 11/08/2021 Encounter Details Date Type Department Care Team (Late st Contact Info) Description 11/08/2021 Telephone [facility] - [facility] [address] [place] [address] Vashti Grover RN Prior Auth, Medication Social History Tobacco Use [...] Telephone Encounter - Vashti Grover RN - 11/08/2021 1405 EST Received approval through 11/08/2022. Pharmacy is aware. * Telephone Encounter - Vashti Grover RN - 11/08/2021 1018 EST PA request sent to Medicaid via Covermymeds * Telephone Encounter - Vashti Grover RN - 11/08/2021 0924 EST ----- Message from Brayan Polk MD sent at 11/07/2021 16:36 EST ----- Starting brivaracetam 50mg twice a day, rx sent, will need PA, didn't see it go automatically with escript. documented in this encounter Plan of Treatment Upcoming Encounters Date Type Department Care Team (Late st Contact Info) Description 03/04/2025 14:00 EDT Telemedicine [facility] - [facility] Neurology Clinic [address] [place] [address] Brayan Polk MD 130 [facility] [address] [place] [phone] 07/14/2025 14:30 EDT Office Visit [facility] Cancer Center Hematology & Oncology - [address] [address] Evin Maria MD 111 [facility], [address] [place] [address] documented as of this encounter Visit Diagnoses Not on filedocumented in this encounter Care Teams Mold Tooler Relationship Specialty Start Date End Date Romario Hairston MD [facility] [place] [place] [phone] PCP - General 07/06/20 documented as of this encounter
--- OUTSIDE RECORDS SUMMARY | 2024-12-03 15:57 | XMS_ITS | Encounter Summary ---
Author Organization [facility] Address [address] [place] [address] Care Team Providers Care Special Effects Specialist Name Role Phone Romario Hairston MD Primary Care Provider +1- [phone] Reason for Visit * Reason Comments Seizures Encounter Details Date Type Department Care Team (Late st Contact Info) Description 11/07/2021 16:00 EST Office Visit [facility] [address] [place] [address] Brayan Polk MD [address] [place] [address] [place] [address] Focal seizure (HCC-CMS) (HCC) (HCC-CMS) [...] * Patient Instructions* Brayan Polk MD - 11/07/2021 16:00 EST When you get the new seizure medicine, do the following: Start the new medication, brivaracetam/Briviact 50mg twice a day, which is 1 tab twice a day. At the same time stop the lacosamide/Vimpat Continue zonisamide 200mg every night documented in this encounter Ordered Prescriptions Prescription Sig Dispense Quantity Refills Last Filled Start Date End Date brivaracetam (BRIVIACT) 50 mg tablet Take 1 Tablet by mouth 2 times daily. Daily Max: 100 mg 60 Tablet 11/07/2021 11/27/2021 documented in this encounter Progress Notes * Brayan Polk MD - 11/07/2021 1600 EST [facility] PATIENT NAME: Ynes White PATIENT : 1970 PCP: Romario Hairston DATE OF SERVICE: 11/07/2021 CHIEF COMPLAINT: ICH and symptomatic seizure HISTORY Ynes White is a 51 y.o. female who returns in follow-up with her friend Ever as usual. Since last visit we increased zonisamide up to 300 mg once a day but this gave her poor appetite and weightloss so we decreased it back to 200 mg and started lacosamide 50 mg twice daily. Ever recently called to say that she was very imbalanced and I asked them to come in today in case we would discuss medication switch. She is sleeping well, and eating much better on lower dose of zonisamide, but she's very groggy and tired, and taking plenty of naps also, perhaps from lacosamide. Ever thinks she is still having seizures too. She also thinks since starting the lacosamide her vision is bad, and she recently saw her cloth grader who didn't see any new changes. Summary: ICH related to cerebral venous thrombosis in January 2020, treated with surgical evacuation by Dr Piña, and subsequent cranioplasty, as well as likely symptomatic seizure in June for which she was briefly admitted to [facility], and placed on levetiracetam 1000mg BID which gave her worsening of anxiety causing several ED visits. Was then switched to zonisamide, which at 200mg/d was not effective enough for seizure control but at 300mg/d caused anorexia and weight loss. 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 ALLERGIES Allergies Allergen Reactions ??? Citalopram Other reaction(s): increased anxiety ??? Duloxetine Other reaction(s): increased anxiety ??? Levetiracetam Anxiety ??? Pregabalin Other reaction(s): dizziness ??? Zolpidem Other reaction(s): sleep walking with over 5 mg CURRENT MEDICATIONS Outpatient Medications Marked as Taking for the 11/07/21 encounter (Office Visit) with Brayan Polk MD [...] 1 TABLET BY MOUTH TWICE DAILY ??? ketotifen (ZADITOR) 0.025 % (0.035 %) ophthalmic solution ??? lacosamide (VIMPAT) 50 mg tablet Take 1 Tablet by mouth 2 times daily for 30 days. Daily Max: 100 mg ??? lactulose (CHRONULAC) 10 gram/15 mL solution TAKE 15 ML BY MOUTH EVERY DAY NEEDED ??? [DISCONTINUED] loratadine (CLARITIN) 10 mg tablet TK 1 T PO QD ??? melatonin 5 mg tablet Take 5 [...] ??? zonisamide (ZONEGRAN) 100 mg capsule Take 3 Capsules by mouth at bedtime. NEUROLOGIC EXAM Upper right quadrantanopsia, speech fluent but at times hesitant, normal content. Normal casual gait. Mild right sided hyperreflexia compared to left. NEUROIMAGING STUDIES: Personally reviewed Noncontrast head CT [...] 09/18/21 unchanged. ASSESSMENT: Ynes White is a 51 y.o. female who returns in follow-up for intracerebral hemorrhage secondary to cerebral venous thrombus in January 2020 treated with evacuation and cranioplasty, and subsequentleft hemispheric focal onset seizure causing right gaze deviation and right arm movements. Zonisamide was incompletely helpful at 200 mg/day, and caused significant weight loss and anorexia 300 mg today. Levetiracetam previously caused severe anxiety. Lacosamide has caused her significant ataxia. We will attempt to get brivaracetam, and give in conjunction with zonisamide 200mg/d for now hoping th at some of these new side effects evie and seizures are under better control. 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, and subsequent symptomatic focal onset seizure -Continue zonisamide 200 mg once daily, she takes it at night. -tart brivaracetam 50mg twice a day when you receive it from the pharmacy, and at the same time stop lacosamide. Will need PA, but she has failed now 3 anticonvulsants including levetiracetam, zonisamide, and lacosamide, and has allergy listed to pregabalin. She also takes multiple mood-altering medications which makes use of carbamazepine family and valproate more concerning. -Follow-up in about 2 months Brayan Polk MD I spent a total of 35 minutes on the date of this encounter meeting with the patient and reviewing documentation/coordinating care as described in the above note. documented in this encounter Plan of Treatment Upcoming Encounters Date Type Department Care Team (Late st Contact Info) Description 03/04/2025 14:00 EDT Telemedicine [facility] Neurology Clinic [address] [place] [address] Brayan Polk MD [address] [place] [address]A [address] [place] [address] 07/14/2025 14:30 EDT Office Visit [email or web address] Cancer Center Hematology & Oncology - [address] [phone] Evin Maria MD [address] [facility], [facility], Level [address] [place] [phone] documented as of this encounter Visit Diagnoses Diagnosis Focal seizure (HCC-[facility])- Primary Other convulsions documented in this encounter Discontinued Medications Medication Sig Discontinue Reason Start Date End Da te loratadine (CLARITIN) 10 mg tablet TK 1 T PO QD Patient Stopped Taking 09/26/2020 pantoprazole (PROTONIX) 40 mg tablet TK 1 T PO QD Alternate therapy 05/06/2020 11/07/2021 documented as of this encounter Care Teams Special Effects Specialist Relationship Specialty Start Date End Date Romario Hairston MD [address], [address] [address] PCP - General 07/06/20 documented as of this encounter
--- OUTSIDE RECORDS SUMMARY | 2024-12-03 15:57 | XMS_ITS | Encounter Summary ---
Author Organization [facility] Address [address] [place] [address] Care Team Providers Care Net Mender Name Role Phone Romario Hairston MD Primary Care Provider [phone]- [phone] Reason for Visit * Reason Comments Nausea Pt comes in at PCP's suggestion after decreased appetite, N/V, and difficulty swallowing for about a month. Hx of stroke, seizures. Denies fevers or other symptoms. Encounter Details Date Type Department Care Team (Late st Contact Info) Description 10/11/2021 14:19 EST - 10/11/2021 18:27 EST Emergency [facility] Emergency Department [address] [place] [address] Jean Mccarthy MD [address] [place] [address] Hypomagnesemia (Primary Dx); Anorexia Discharge Disposition: Home or Self Care Social [...] 13:34 EST documented as of this encounter Last Filed Vital Signs Vital Sign Reading Time Taken Comments Blood Pressure 125/88 10/11/2021 1700 EST Pulse 77 10/11/2021 1501 EST Temperature 35.6 ??C (96 ??F) 10/11/2021 1330 EST Respiratory Rate - - Oxygen Saturation 96% 10/11/2021 1700 EST Inhaled Oxygen Concentration - - Weight [...] this encounter Discharge Instructions * Discharge Instructions* Jean Mccarthy MD - 10/11/2021 18:00 EST Continue to take your magnesium as prescribed. Decrease the zonisamide to 200 mg once daily. Start taking lacosamide 50 mg twice daily. Follow-up with your primary care provider in the next week for repeat magnesium check. Return to the emergency department if you do not have improvement in her symptoms over the next 2 to 3 days or you develop worsening symptoms.. * Attachments The following attachments cannot be sent through Care Everywhere. * Anorexia (Mauritanian) documented in this encounter Medications at Time [...] MOUTH TWICE DAILY 60 Tab 6 04/17/2021 1 ketotifen (ZADITOR) 0.025 % (0.035 %) ophthalmic solution Not filling 08/09/2020 2 lacosamide (VIMPAT) 50 mg tablet Take 1 Tablet by mouth 2 times daily for 30 days. Daily Max: 100 mg 60 Tablet 10/11/2021 1 lactulose (CHRONULAC) 10 gram/15 mL solution TAKE 15 ML BY MOUTH EVERY DAY NEEDED 11/16/2020 4 loratadine (CLARITIN) 10 mg tablet TK 1 T PO QD 09/26/2020 1 melatonin 5 mg tablet Take 2 Tablets [...] an extra' dose if needed 08/02/2020 2 pantoprazole (PROTONIX) 40 mg tablet TK 1 T PO QD 05/06/2020 1 polyethylene glycol (MIRALAX) 17 gram/dose powder Take [...] 4 zonisamide (ZONEGRAN) 100 mg capsule Take 3 Capsules by mouth at bedtime. 270 capsule 1 09/05/2021 1 documented as of this encounter Ordered Prescriptions Prescription Sig Dispense Quantity Refills Last Filled Start Date End Date lacosamide (VIMPAT) 50 mg tablet Take 1 Tablet by mouth 2 times daily for 30 days. Daily Max: 100 mg 60 Tablet 10/11/2021 11/10/2021 documented in this encounter Discharge Disposition Disposition Code Departure Means Destination Home or Self Fpc documented in this encounter ED Notes * Jean Mccarthy MD - 10/11/2021 1827 EST Emergency Department Visit Chief Complaint Nausea (Pt comes in at PCP's suggestion after decreased appetite, N/V, and difficulty swallowing for about a month. Hx of stroke, seizures. Denies fevers or other symptoms. ) Assessment and ED Course Final diagnoses: Hypomagnesemia Anorexia 51-year-old woman with a history of intracranial hemorrhage in the past, recent seizure medication adjustment, now with anorexia, nausea, occasional vomiting and occasional loose stool over the last couple weeks. Increasing weakness. No fevers. No seizures. On exam she appears to have some temporal wasting, slightly distended abdomen, nontender. Speech issomewhat slow at times. Her partner feels in some words. Labs have very significant hypomagnesemia but otherwise unremarkable. Treated with 4 g of magnesium. Briefly discussed with Dr. Polk. Possible that this could be a side effect of her zonisamide which was recently adjusted right before the symptoms started. Returning to the prior dose of zonisamide and adding torsemide. Discharging with neurology follow-up. Disposition: Discharged HPI Napoleon White is a 51 y.o. female who presents today with Nausea (Pt comes in at PCP's suggestion after decreased appetite, N/V, and difficulty swallowing for about a month. Hx of stroke, seizures. Denies fevers or other symptoms. ) 51-year-old with a history of intracranial hemorrhage and subsequent epilepsy presents the emergency department with anorexia for the last 3 to 4 weeks. Around that time she was having increased seizures and had increased dose of her antiepileptic medications. Since then she had decreased appetite,food does not taste good. Occasional gagging with a few episodes of vomiting over the last few weeks. Several episodes of loose stool, no real constipation. She feels a little bit distended in her abdomen. No dysuria or frequency. No chest pain or shortness of breath. No syncope. No seizures duringthis time interval. Data reviewed this visit: Allergies: Allergies Allergen Reactions ??? Citalopram Other reaction(s): increased anxiety ??? Duloxetine Other reaction(s): increased anxiety ??? Levetiracetam Anxiety ??? Pregabalin Other reaction(s): dizziness ??? Zolpidem Other reaction(s): sleep walking with over 5 mg Review of Systems Review of Systems Constitutional: A 10-point review of systems was performed. The patient answered negative to all questions with theexceptions of those explicitly detailed as positives in the HPI. Pertinent negatives are also explicitly stated. - see HPI Physical Exam Vital Signs Vitals Reassessment?: Yes Temp: (!) 35.6 ??C (96 ??F) Temp src: Temporal Pulse: 77 Heart Rate: 77 BPM SpO2: 96 % BP: 125/88 BP MAP: 102 mm Hg BP Device: BP Machine BP Patient Position: Sitting BP Cuff Location: Left arm O2 Device: None (Room air) There is no height or weight on file to calculate BMI. A medical screening exam was performed. Physical Exam Vitals and nursing note reviewed. Constitutional: General: She is not in acute distress. Comments: Has some temporal wasting HENT: Nose: Nose normal. Mouth/Throat: Mouth: Mucous [...] General: Bowel sounds are normal. There is distension. Palpations: Abdomen is soft. Tenderness: There is no abdominal tenderness. There is no guarding or rebound. Musculoskeletal: General: Normal range of motion. Cervical back: Normal range of motion and neck supple. Skin: General: Skin is warm and dry. Neurological: Mental Status: She is alert and oriented to person, place, and time. Cranial Nerves: No cranial nerve deficit. Comments: Some difficulties with speech, according to the this is been gradually improving. Psychiatric: Mood and Affect: Mood and affect normal. Results EKG orders: EKG 12-LEAD ECG Reviewed: Findings include normal sinus rhythm at 74, normal axis, normal intervals, no acute ischemia the study has been independently viewed by me. The study has been interpreted independently and contemporaneously by me. The EKG appears to be a good tracing. Attending dolphin researcher not immediately available for acute interpretation. Radiology orders: None Procedures Procedures [facility] 10/11/2021 20:53 * Shawn Welch RN - 10/11/2021 1824 EST Pt ambulated in [place]. - steady gate - denies dizziness or lightheadedness - denies other complaints, pt states I feel better * Jacqueline Tay RN - 10/11/2021 1736 EST 12 Lead EKG Performed by Jacqueline Tay RN and shown to Jean Mccarthy MD. * Shawn Welch RN - 10/11/2021 1536 EST Mag 0.8; physician aware. * Shawn Welch RN - 10/11/2021 1504 EST 51 yoa F c/o epigastric abd pain described as an ache, onset 2 weeks ago and getting progressively worse since onset. Pt unable to numerically assign the pain (hx of brain aneurysm) but states the pain is medium. Pt states she has been intermittently nauseas since onset and has vomited. Pt and at bedside state nothing unusual about vomit. Pt has also had loose stools and diarrhea since onset w/ the last BM being 4 days ago. Per pt and , nothing unusual about stool other than it being loose. No blood or coffeegrounds present. Pt denies CP or SOB. documented in this encounter Plan of Treatment Upcoming Encounters Date Type Department Care Team (Late st Contact Info) Description 03/04/2025 14:00 EDT Telemedicine [facility] Neu[facility] [address] [place] [id number] Brayan Polk MD [address] [facility] [address] [place] [address] 07/14/2025 14:30 EDT Office Visit [facility] Hematology & Oncology - [address] [address] Evin Maria MD [address] [place] [address], [address] [place] [address] documented as of this encounter Procedures Procedure Name Priority Date/Time Associated Diagnosis Comments ECG REPORT - SCANNED 10/11/2021 18:07 EST EKG 12-LEAD STAT 10/11/2021 17:32 EST COMPLETE BLOOD COUNT AND DIFFERENTIAL STAT 10/11/2021 14:54 EST MAGNESIUM STAT 10/11/2021 14:54 EST COMPREHENSIVE METABOLIC PANEL (CMP) STAT 10/11/2021 14:54 EST documented in this encounter Results * ECG REPORT - SCANNED (10/11/2021 18:07 EST) 10/11/2021 18:0 7 EST us Scan 2 Ornamenter PROCEDURE/MINOR SURGICAL OR DERABLES Final Result * EKG 12-LEAD (10/11/2021 17:32 EST) 10/11/2021 17:3 2 EST Narrative [facility] - 10/11/2021 18:02 EST ? CV ? Test Date: ?2021-10-11 Pat Name: ? NAPOLEON WHITE ? Department: ? Room: ? A03 Gender: ? Female ? Music Coordinator: ?? [place] : ?1970 ? Requested By: LISE HARDIN Order Number: [id number] ? Reading MD: ?? VANESSA GOTTLIEB MD ? Measurements Intervals ?[place] ? Rate: ? 74 ? P: ?53 [place]: ? 152 ?QRS: ?13 QRSD: ? 78 ? T: ?19 QT: ? 396 ? QTc: ?439 ? Interpretive Statements Normal sinus rhythm Compared to ECG 07/30/2020 19:08:15 No significant changes I reviewed the tracing and have either agreed or edited the findings in this report. Electronically Signed On 10-11-2021 18:02:39 EST by VANESSA GOTTLIEB MD. Procedure Note Vanessa Gottlieb MD - 10/11/2021 [facility] Test Date: 2021-10-11 Pat Name: NAPOLEON WHITE Department: Room: A03 Gender: Female Music Coordinator: ALEXANDER : 1970 Requested By: LISE HARDIN Order Number: [id number] Reading MD: VANESSA GOTTLIEB MD Measurements Intervals [place] Rate: 74 P: 53 [place]: 152 QRS: 13 QRSD: 78 T: 19 QT: 396 QTc: 439 Interpretive Statements Normal sinus rhythm Compared to ECG 07/30/2020 19:08:15 No significant changes I reviewed the tracing and have either agreed or edited the findings inthis report. Electronically Signed On 10-11-2021 18:02:39 EST by VANESSA SUAREZ. Jean Mccarthy MD CARDIAC ECG ORDERABLES Shannon l Result Performing Organization Address City/[facility]/ZIP Co de Phone Number [facility] * (ABNORMAL) MAGNESIUM (10/11/2021 14:54 EST) [facility] Magnesium 0.8(LL) 1.7 - 2.8 mg/dL 10/11/2021 15:15 [facility] Blood VENOUS BLOOD / Unknown Venipuncture / Unknown 10/11/2021 14:54 EST 10/11/2021 14:57 EST Jean Mccarthy MD CHEMISTRY & BLOOD GAS ORDER [place] Final Result Performing Organization Address City/[facility]/ZIP Co de Phone Number [facility] [address] [place] [address] * (ABNORMAL) COMPREHENSIVE METABOLIC PANEL (CMP) (10/11/2021 14:54 EST) [facility] Sodium 136 136 - 145 mmol/L 10/11/2021 15:12 [facility] Potassium 4.4 3.5 - 5.0 mmol/L 10/11/2021 15:12 [facility] Chloride 101 96 - 110 mmol/L 10/11/2021 15:12 [facility] CO2 Total 26 22 - 32 mmol/L 10/11/2021 15:12 [facility] Glucose 104(H) 70 - 100 mg/dL 10/11/2021 15:12 [facility] BUN 5(L) 10 - 26 mg/dL 10/11/2021 15:12 [facility] Creatinine 0.80 0.52 - 1.04 mg/dL 10/11/2021 15:12 [facility] eGFR 84 >60 mL/min/1.7 3m2 10/11/2021 15:12 [facility] Total Protein 6.3 6.3 - 8.2 g/dL 10/11/2021 15:12 [facility] Albumin 3.7 3.4 - 4.9 g/dL 10/11/2021 15:12 [facility] Alkaline Phosphatase 203(H) 38 - 126 U/L 10/11/2021 15:12 [facility] AST 25 15 - 46 U/L 10/11/2021 15:12 [facility] ALT 17 <35 U/L 10/11/2021 15:12 [facility] Bilirubin, Total 0.7 <1.4 mg/dL 10/11/20 15:12 [facility] Calcium 10.0 8.5 - 10.5 mg/dL 10/11/2021 15:12 [facility] Albumin/Globulin Ratio 1.4 1.0 - 2.5 10/11/2021 15:12 [facility] Anion Gap 9 8 - 16 10/11/2021 15:12 [facility] Blood VENOUS BLOOD / Unknown Venipuncture / Unknown 10/11/2021 14:54 EST 10/11/2021 14:57 EST us Jean Mccarthy MD CHEMISTRY & BLOOD GAS ORDER [place] Final Result [facility] [address] [place] [address] * (ABNORMAL) COMPLETE BLOOD COUNT AND DIFFERENTIAL (10/11/2021 14:54 EST) WBC 4.49 4.00 - 12.40 K/cmm 10/11/2021 15:14 [facility] RBC 3.72(L) 3.86 - 5.04 M/cmm 10/11/2021 15:14 [facility] Hemoglobin 12.5 11.6 - 15.2 gm/dL 10/11/2021 15:14 [facility] HCT 35.5 34.9 - 44.4 % 10/11/2021 15:14 [facility] MCV 95 81 - 98 fl 10/11/2021 15:14 [facility] MCH 33.6(H) 26.7 - 33.3 pg 10/11/2021 15:14 [facility] MCHC 35.2 32.1 - 35.9 gm/dL 10/11/2021 15:14 [facility] RDW-CV 15.4(H) <14.7 % 10/11/2021 15:14 [facility] RDW-SD 53.8(H) <50.4 fl 10/11/2021 15:14 [facility] PLT 213 141 - 377 K/cmm 10/11/2021 15:14 [facility] MPV 9.6 9.5 - 12.7 fl 10/11/2021 15:14 [facility] % Neutrophils 56.0 % 10/11/2021 15:14 [facility] % Lymphocytes 35.4 % 10/11/2021 15:14 [facility] % Monocytes 7.6 % 10/11/2021 15:14 [facility] % Eosinophils 0.2 % 10/11/2021 15:14 [facility] % Basophils 0.4 % 10/11/2021 15:14 [facility] % Immature Grans 0.4 % 10/11/20 15:14 [facility] Absolute Neutrophils 2.51 2.20 - 8.85 K/cmm 10/11/2021 15:14 [facility] Absolute Lymphocytes 1.59 1.09 - 3.30 K/cmm 10/11/2021 15:14 [facility] Absolute Monocytes 0.34 0.10 - 0.80 K/cmm 10/11/2021 15:14 [facility] Absolute Eosinophils 0.01(L) 0.03 - 0.61 K/cmm 10/11/2021 15:14 [facility] ABS Basophils 0.02 0.01 - 0.11 K/cmm 10/11/2021 15:14 [facility] Absolute Immature Grans 0.02 0.00 - 0.06 K/cmm 10/11/2021 15:14 [facility] Type of Differential: Auto 10/11/2021 15:14 [facility] Blood VENOUS BLOOD / Unknown Venipuncture / Unknown 10/11/2021 14:54 EST 10/11/2021 14:57 EST us Jean Mccarthy MD PACKAGES & DNA PROBE ORDERA BLES Final Result Performing Organization Address City/State/[facility] Co de Phone Number [facility] [address] [place] [address] documented in this encounter Visit Diagnoses Diagnosis Hypomagnesemia- Primary Disorders of magnesium metabolism Anorexia documented in this encounter Administered Medications Inactive Administered Medications - up to 3 most recent administrations Medication Order MAR Action Action Date Dose Rate Site lacosamide (VIMPAT) oral solution 50 mg 50 mg, oral, NOW X1, 1 dose, On Sat10/11/21 at 1815, STAT Given 10/11/2021 18:08 EST 50 mg magnesium sulfate 2 g in water 50 mL 2 g, intravenous, Administer over 30 Minutes, NOW X1, 1 dose, On Sat10/11/21 at 1615, Routine New Bag 10/11/2021 16:00 EST 2 g magnesium sulfate 2 g in water 50 mL 2 g, intravenous, Administer over 30 Minutes, NOW X1, 1 dose, On Sat10/11/21 at 1700, Routine New Bag 10/11/2021 16:42 EST 2 g documented in this encounter Active and Recently Administered Medications Times are shown in EST. Scheduled Medication Order 10/09/2021 10/10/2021 10/11/2021 lacosamide (VIMPAT) oral solution 50 mg (COMPLETED) 50 mg, oral, NOW X1, 1 dose, On Sat10/11/21 at 1815, STAT 1808 (Given - Provid er: Shawn Welch RN - Comment: order overridden 2/2 no oral solution available. Per physician, tablet ok. Admin 1/2 of 100mg tablet.) magnesium sulfate 2 g in water 50 mL (COMPLETED) 2 g, intravenous, Administer over 30 Minutes, NOW X1, 1 dose, On Sat10/11/21 at 1615, Routine 1600 (New Bag - Prov ider: Shawn Welch RN)1633 (Completed - Provider: Shawn Welch RN) magnesium sulfate 2 g in water 50 mL (COMPLETED) 2 g, intravenous, Administer over 30 Minutes, NOW X1, 1 dose, On Sat10/11/21 at 1700, Routine 1642 (New Bag - Prov ider: Shawn Welch RN)1710 (Completed - Provider: Jacqueline Tay RN) documented in this encounter Care Teams Net Mender Relationship Specialty Start Date End Date Romario Hairston MD [address] [place] [address] PCP - General 07/06/20 documented as of this encounter
--- OUTSIDE RECORDS SUMMARY | 2024-12-03 15:57 | XMS_ITS | Encounter Summary ---
Author Organization [facility] Address [address] [place] [address] Care Team Providers Care Amusement Machine Mechanic Name Role Phone Romario Hairston MD Primary Care Provider +1- [phone] Reason for Visit * Reason Comments Seizures Encounter Details Date Type Department Care Team (Late st Contact Info) Description 09/05/2021 8:30 EDT Office Visit [facility] Neurology Clinic [address] [place] [address] Brayan Polk MD [address] [place] [address] [address] [place] [address] Focal seizure (HCC-CMS) (HCC) (HCC-CMS) [...] Refills Last Filled Start Date End Date zonisamide (ZONEGRAN) 100 mg capsule Take 3 Capsules by mouth at bedtime. 270 capsule 1 09/05/2021 documented in this encounter Progress Notes * Brayan Polk MD - 09/05/2021 0830 EDT [facility] PATIENT NAME: Ynes White PATIENT : 1970 PCP: Romario Hairston DATE OF SERVICE: 09/05/2021 CHIEF COMPLAINT: ICH and symptomatic seizure, as well as non-epileptic events related to anxiety HISTORY Ynes White is a 51 y.o. female who returns in follow-up with her friend Ever as usual. At lastvisit she had had a single episodes suspicious for focal seizure with typical january, so I increased zonisamide to 300mg once daily. She did get a psychiatrist who has been trying to help her anxiety with different medications. Nothing has happened since last visit which was worrisome fora seizure. Sometimes in the evening she will rock back and forth, and her legs might tingle but nothing else. That feels like anxiousness to her. She's having some trouble with sleep also. She's alsofeeling more unsettled due to an impending move. There is some whitening in her vision periodicallytowards the right. She's going to see an software packaging engineer soon. Summary: ICH related to cerebral venous thrombosis in January 2020, treated with surgical evacuation by Dr Piña, and subsequent cranioplasty, as well as likely symptomatic seizure in June for which she was briefly admitted to [facility], and placed on levetiracetam 1000mg BID which gave her worsening of anxiety causing several ED visits. Was then switched to zonisamide. Semiology: 1-Shaking episodes Ever demonstrates that both arms would shake, with head shaking, then legs get weak and she might fall. It could last a minute or more, might come and go for a couple of minutes. He thinks her eyes are foggy looking, and her eyelids start to shut. She is able to communicate during some of them, but it's not always coherent. She thinks she might be able to stop it, but Ever thinks this is not the case. It can get aggravated by being upset. They are both sure that both arms and legs are shaking during this, with large amplitude shaking. She also has been feeling much more irritability, and rage and more anxious recently. The shaking episodes seem to co-exist with feeling very anxious. These have been very suspicious for anxiety related non-epileptic events. 2-Seizure Ever also witnessed the seizure in June. That one involved right arm movements, head and eye version to the one side, then whole body shaking with clear unconsciousness and post-ictal confusion. This is likely epileptic in nature. ALLERGIES Allergies Allergen Reactions ??? Citalopram Other reaction(s): increased anxiety ??? Duloxetine Other reaction(s): increased anxiety ??? Levetiracetam Anxiety ??? Pregabalin Other reaction(s): dizziness ??? Zolpidem Other reaction(s): sleep walking with over 5 mg CURRENT MEDICATIONS Outpatient Medications Marked as Taking for the 09/05/21 encounter (Office Visit) with Brayan Polk MD [...] 0.025 % (0.035 %) ophthalmic solution ??? lactulose (CHRONULAC) 10 gram/15 mL solution TAKE 15 ML BY MOUTH EVERY DAY NEEDED ??? loratadine (CLARITIN) 10 mg tablet TK 1 [...] zonisamide (ZONEGRAN) 100 mg capsule Take 3 Caps by mouth at bedtime. NEUROLOGIC EXAM Upper [...] hyperdensity suggesting it may be aging blood. ASSESSMENT: Ynes White is a 51 y.o. female who returns in follow-up for intracerebral hemorrhage secondary to cerebral venous thrombus in January 2020 treated with evacuation and cranioplasty, and subsequentleft hemispheric focal onset seizure causing right gaze deviation and right arm movements. No recent episodes concerning for seizure. After the last 1 we increased Sinemet to 300 mg once daily and this seems to have stopped those episodes. No side effects currently. She is also dealing with chronicanxiety which causes multiple other episodes which have always seemed nonepileptic in nature. 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, and subsequent symptomatic focal onset seizure -Continue zonisamide 300 mg once daily, she takes it at night. I sent a prescription for 30-day supply with 1 refill. -Continue working with her psychiatrist for anxiety management -Follow-up in about 6 months Brayan Polk MD I spent a total of 35 minutes on the date of this encounter meeting with the patient and reviewing documentation/coordinating care as described in the above note. documented in this encounter Plan of Treatment Upcoming Encounters Date Type Department Care Team (Late st Contact Info) Description 03/04/2025 14:00 EDT Telemedicine [facility] Neurology Clinic [address] [place] [address] Brayan Polk MD [address] [place] [address] [place] [id number] 07/14/2025 14:30 EDT Office Visit [facility] Hematology & Oncology - [address] [id number] Evin Maria MD [address] [place] [address], [facility] [address] [place] [phone] documented as of this encounter Visit Diagnoses Diagnosis Focal seizure ([facility])- Primary Other convulsions documented in this encounter Discontinued Medications Medication Sig Discontinue Reason Start Date End Da te zonisamide (ZONEGRAN) 100 mg capsule Take 3 Caps by mouth at bedtime. Reorder 02/02/2021 09/05/2021 documented as of this encounter Historical Medications * This list may reflect changes made after this encounter. omeprazole (PRILOSEC) 20 mg capsule TAKE 1 CAPSULE BY MOUTH EVERY DAY 30 MINUTES BEFORE BREAKFAST 07/05/2021 OLANZapine (ZYPREXA) 10 mg tablet TAKE 1 TABLET BY MOUTH EVERY DAY AT BEDTIME. TAKE WITH 5MG TABLET FOR TOTAL AT BEDTIME DOSE OF 15MG. 09/01/2021 2 added in this encounter Care Teams Amusement Machine Mechanic Relationship Specialty Start Date End Date Romario Hairston MD [facility] [place] [address] PCP - General 07/06/20 documented as of this encounter
--- OUTSIDE RECORDS SUMMARY | 2024-12-03 15:57 | XMS_ITS | Encounter Summary ---
Author Organization [facility] Address [address] [place] [address] Care Team Providers Care Retail Support Associate Name Role Phone Romario Hairston MD Primary Care Provider +1- [phone] Encounter Details Date Type Department Care Team (Late st Contact Info) Description 01/29/2021 Results Only Imaging [facility] Radiology Results [address] [place] [address] Kassandra Odom, DO [address] [place] [address] Social History Tobacco Use Types Packs/Day [...] Contact Info) Description 03/04/2025 14:00 EDT Telemedicine [facility] Neurology Clinic [address] [place] [address] Brayan Polk MD [address] [place] [address] [place] [phone] 07/14/2025 14:30 EDT Office Visit [facility] Hematology & Oncology - [address] [id number] Evin Maria MD [address] [place] [address], [address] [place] [address] documented as of this encounter Procedures Procedure Name Priority Date/Time Associated Diagnosis Comments CT HEAD WO CONTRAST 01/29/2021 3:54 EST documented in this encounter Results * CT HEAD WO CONTRAST (01/29/2021 3:54 EST) Anatomical Region Laterality Modality Head Computed Tomogra phy 01/29/2021 3:54 EST Narrative 01/29/2021 3:54 EST ? EXAM: CAT SCAN/HEAD WITHOUT CONTRAST ?EX. D/ (0344) ? CLINICAL INFORMATION: ? Numbness/tingling right leg, then right arm, then head with diff ? PROCEDURE INFORMATION: ? Exam: CT Head Without Contrast ? Exam date and time: 01/29/2021 3:16 AM ? Age: 51 years old ? Clinical indication: Numbness / tingling right leg, then right ? arm, then head with diff speaking, lasted 10 min. HX spontaneous ? brain bleed 1 year ago; Prior surgery; date: 6+ months; ? Left-sided craniotomy ? TECHNIQUE: ? Imaging protocol: Computed tomography of the head without ? contrast. ? Radiation optimization: All CT scans at this facility use at ? least one of these dose optimization techniques: automated ? exposure control; mA and/or kV adjustment per patient size ? (includes targeted exams where dose is matched to clinical ? indication); or iterative reconstruction. ? COMPARISON: ? CT HEAD WITHOUT CONTRAST 12/07/2020 10:11 PM ? FINDINGS: ? Brain: No acute intracranial hemorrhage. Old area of ? encephalomalacia within the left hcbkdbbi-omwukpuk-tfdtvzmos ? lobe region. ? Cerebral ventricles: No ventriculomegaly. ? Bones/joints: Prior left ruqrvjc-snlwtwza-cvvliudm craniotomy. ? Paranasal sinuses: Visualized sinuses are unremarkable. No fluid ? levels. ? Mastoid air cells: Visualized mastoid air cells are well ? aerated. ? Soft tissues: Unremarkable. ? IMPRESSION: ? 1. ??No acute intracranial findings compared to the prior CT head ? examination dated 12/07/2020. ? 2. ??Prior left edxtqzy-qqwqkkrr-cgmvcyll craniotomy with ? adjacent old area of encephalomalacia within the left ? obshckew-vyklzeza-hicodmgct lobe region. ? REPORT SIGNED IN OTHER VENDOR SYSTEM 01/29/2021 ?Reported By: Navid Peña MD ? CC: ? Transcribed Date/Time: 01/29/2021 (0354) ? Special Delivery Clerk: ? Printed Date/Time: 01/29/2021 (0354) ? PAGE 1 ? Signed Report ? Procedure Note Navid Peña MD - 01/29/2021 EXAM: CAT SCAN/HEAD WITHOUT CONTRAST EX. D/ (0344) CLINICAL INFORMATION: Numbness/tingling right leg, then right arm, then head with diff PROCEDURE INFORMATION: Exam: CT Head Without Contrast Exam date and time: 01/29/2021 3:16 AM Age: 51 years old Clinical indication: Numbness / tingling right leg, then right arm, then head with diff speaking, lasted 10 min. HX spontaneous brain bleed 1 year ago; Prior surgery; date: 6+ months; Left-sided craniotomy TECHNIQUE: Imaging protocol: Computed tomography of the head without contrast. Radiation optimization: All CT scans at this facility use at least one of these dose optimization techniques: automated exposure control; mA and/or kV adjustment per patient size (includes targeted exams where dose is matched to clinical indication); or iterative reconstruction. COMPARISON: CT HEAD WITHOUT CONTRAST 12/07/2020 10:11 PM FINDINGS: Brain: No acute intracranial hemorrhage. Old area of encephalomalacia within the left ijtlodyh-svlqjrdk-jlvhhptzy lobe region. Cerebral ventricles: No ventriculomegaly. Bones/joints: Prior left egqfecs-juqdmeqe-pzrsonks craniotomy. Paranasal sinuses: Visualized sinuses are unremarkable. No fluid levels. Mastoid air cells: Visualized mastoid air cells are well aerated. Soft tissues: Unremarkable. IMPRESSION: 1. No acute intracranial findings compared to the prior CT head examination dated 12/07/2020. 2. Prior left nukhpjx-zqnffuvy-swsnsxfk craniotomy with adjacent old area of encephalomalacia within the left iiergiah-rtxnwpyv-lpbxdcdyd lobe region. REPORT SIGNED IN OTHER VENDOR SYSTEM 01/29/2021 Reported By: Navid Peña MD CC: Transcribed Date/Time: 01/29/2021 (0354) Special Delivery Clerk: Printed Date/Time: 01/29/2021 (0354) PAGE 1 Signed Report Kassandra Odom DO IMG CT ORDERABLES Final Result documented in this encounter Visit Diagnoses Not on filedocumented in this encounter Additional Health Concerns Infection Onset Date Last Indicated Resolved Time R/O COVID-19 Comment:Negative result 03/07/2022 03/07/2022 03/07/2022 9:37 EDT R/O COVID-19 01/28/2024 01/28/2024 01/29/2024 0:27 EST documented as of this encounter Care Teams Retail Support Associate Relationship Specialty Start Date End Date Romario Hairston MD [address] [place] [address] PCP - General 07/06/20 documented as of this encounter
--- OUTSIDE RECORDS SUMMARY | 2024-12-03 15:57 | XMS_ITS | Encounter Summary ---
Author Organization [facility] Address [address] [place] [address] Care Team Providers Care Grounds And Nursery Specialist Name Role Phone Romario Hairston MD Primary Care Provider [phone]- [phone] Reason for Visit * Reason Comments Pain * Referral (Routine/Next Available) - Specialty Report Received Specialty Diagnoses / Procedures Referred By [facility] seble Referred To Contact Orthopedic Surgery Diagnoses Foot pain, left Audelia Alberts PA-C Phone: tel: fax: [facility] [address], [address] [place] [address] Phone: tel: fax: Referral ID Status Reason Start Date Expiration Date Visits Requested Visits Authorized [id number] Specialty Report Received Specialty Services Required 12/21/2020 1 1 Encounter Details Date Type Department Care Team (Late st Contact Info) Description 01/16/2021 9:45 EST Office Visit [facility] Podiatry [address] [place], [place] [address] Reno Suarez, DPM [address], [place] [address] Pain in joint of left foot (Primary Dx); Primary osteoarthritis of left foot Social History Tobacco Use Types Packs/Day Years [...] Sign Reading Time Taken Comments Blood Pressure - - Pulse 82 01/16/2021 0937 EST Temperature 36.1 ??C (97 ??F) 01/16/2021 0937 EST Respiratory Rate - - Oxygen Saturation 98% 01/16/2021 0937 EST Inhaled Oxygen Concentration - - Weight 72.6 kg (160 lb) 01/16/2021 0937 EST Height 162.6 cm (5' 4) 01/16/2021 0937 EST Body Mass Index 27.46 01/16/2021 0937 EST documented in this encounter [...] Entry Date Author Yes 07/16/2020 18:38 EDT Broderick, Lisa mansi, RN documented in this encounter Patient Instructions * Patient Instructions* Reno Suarez DPM - 01/16/2021 9:45 EST The elastic band around your arch should help. If it feels worse with it on, then do not use it. If it is helpful, wear it every day, but always take it off at bedtime. You should wear the cast boot whenever you are standing or walking. Even just walking to the bathroom, the boot should be on you foot. documented in this encounter Progress Notes * Reno Suarez DPM - 01/16/2021 6084 EST NEW PATIENT SUBJECTIVE Chief Complaint Patient presents with ??? Left Foot - Pain This patient was screened using current CDC and [facility] guidelines and algorithm for COVID-19 risk, and was considered low risk based on the best information available today. HPI Ynes is a New 51 year old patient referral for non tramatic, chronic left foot pain, which has worsened in recent weeks. Patient is disabled, not working, and activity level is low. She does work with PT 2-3 times per week since having a stroke. Xray reviewed and suggests Lisfranc sprain. Patient has History of TBI. A caregiver/ executive administrative assistant (Ever) accompanied Ynes today and helped answer questions. Pain is in the midfoot, instep area. Relieved by sitting down. Weightbearing pain is variable, can be as high as an 8 on a 10 scale. Patient Active Problem List Diagnosis ??? Back pain ??? Chronic low back pain ??? Encounter for insertion or removal of intrauterine contraceptive device ??? Nicotine dependence, unspecified, uncomplicated ??? Perimenopausal ??? Post concussion syndrome ??? Tobacco abuse ??? Cerebral venous sinus thrombosis ??? Cerebral venous thrombosis ??? Brain herniation (HCC-CMS) ??? Cerebral edema (HCC-CMS) ??? Left-sided nontraumatic intracerebral hemorrhage (HCC-CMS) ??? Primary hypercoagulable state (HCC-CMS) ??? History of cranial surgery ??? Seizure (HCC-CMS) ??? Aphasia Past Medical History: Diagnosis Date ??? Aphasia ??? Cerebral artery occlusion with cerebral infarction (HCC-CMS) ??? Exercise involving walking flat surfaces ??? History of general anesthesia ??? Left-sided nontraumatic intracerebral hemorrhage (HCC-CMS) 03/02/2020 Status post decompressive hemicraniectomy ??? Memory disorder ??? Movement disorder ??? Seizures (HCC-CMS) ??? Shoulder joint pain right No past surgical history on file. Social History Tobacco Use ??? Smoking status: Former Smoker Packs/day: 0.25 Years: 15.00 Pack years: [...] 1 Tab by mouth 2 times daily. 60 Tab 6 ??? aspirin chewable 81 mg tablet Take 81 mg by mouth daily. ??? buPROPion (WELLBUTRIN SR) 150 mg SR tablet TK 1 T PO QD IN THE MORNING ??? diclofenac sodium 1 % gel APPLY 2 GRAMS TO THE AFFECTED JOINT BID ??? docusate sodium (COLACE) 100 mg capsule Take 1 Cap by mouth 2 times daily. ??? ketotifen (ZADITOR) 0.025 % (0.035 %) ophthalmic solution ??? lactulose (CHRONULAC) 10 gram/15 mL solution TAKE 15 ML BY MOUTH EVERY DAY NEEDED ??? loratadine (CLARITIN) 10 mg tablet TK 1 T PO QD ??? melatonin 5 mg tablet Take 5 mg by mouth at bedtime. ??? OLANZapine (ZYPREXA) 5 mg tablet Take 5 mg by mouth at bedtime. ??? pantoprazole (PROTONIX) 40 mg tablet TK 1 T PO QD ??? polyethylene glycol (MIRALAX) 17 gram/dose powder [...] ??? zonisamide (ZONEGRAN) 100 mg capsule Take 2 Caps by mouth at bedtime. 180 Cap 1 No current facility-administered medications for this visit. Allergies Allergen Reactions ??? Citalopram Other reaction(s): increased anxiety ??? Duloxetine Other reaction(s): increased anxiety ??? Levetiracetam Anxiety ??? Pregabalin Other reaction(s): dizziness ??? Zolpidem Other reaction(s): sleep walking with over 5 mg Current medication list reviewed. REVIEW OF SYSTEMS Constitutional: negative for, fever, fatigue, malaise. Eyes: Negative for, change in vision. Ears,nose,mouth,throat: Negative for, URI symptoms, sinus congestion. Cardiovascular: negative for, chest pain, dyspnea on exertion, palpitations. Respiratory: negative for cough, wheezing. Gastrointestinal: negative for, abdominal pain, nausea, diarrhea, blood in stool, heartburn. Genitourinary: negative for, incontinence, dysuria. Musculoskeletal: Positive for, foot /ankle pain. Skin/breast: Negative for, rash, discoloration, lesions. Neurological: Positive for, Numbness, Tingling, Weakness. Psychiatric: negative. Hematologic/lymphatic: Negative for, bleeding, bruising. OBJECTIVE Pulse 82 Temp 36.1 ??C (97 ??F) (Temporal) Ht 162.6 cm (64) Wt 72.6 kg (160 lb) SpO2 98% BMI 27.46 kg/m?? Body mass index is 27.46 kg/m??. Physical Exam: General Exam: Alert and oriented. No acute distress. Appropriate affect. Cognition and memory somewhat impaired from stroke. Healthy body weight. Vascular Exam: Dorsalis pedis pulses normal. Posterior tibial pulses normal. Skin color, texture, turgor, and elasticity normal. No edema. Capillary refill under 2 seconds. Tepid skin temperature. Digital hair present. Dermatologic Exam: No dermal breakdown or ulcerations. No significant hyperkeratotic lesions. Web spaces are without pathology. Skin hydration and texture normal. Ortho Exam: Left foot somewhat tender to palpation dorsal tarsometatarsus, mostly around the secondand third may be a little bit in the lateral portion of the first metatarsal cuneiform joint. Pain with metatarsal squeeze test. Little bit of pain with dorsiflexion plantarflexion of the tarsometatarsal joints when grasping the second metatarsal distally. All other ranges of motion are normal and pain-free. Somewhat of a high arched foot type that now appears to be developing some loss of that arch structure. Left foot x-rays from November in the [facility], 3 nonweightbearing views, which I independently evaluated: There is a little bit of a widened space between first and second metatarsals proximally and may be also second metatarsal and medial cuneiform space. Not very large. Not convincingly a traum atic sprain. Without an injury history here I think it is more likely this is her normal anatomy. There is moderate narrowing of the second and third metatarsocuneiform joint spaces and mild narrowing of the first metatarsocuneiform joint space. Do not see any significant osteophytosis on this exam. Overall arch structure and any degree of flattening is not assessable in these nonweightbearing films. Neurologic Exam: Cutaneous sensation and motor function are grossly intact and symmetrical. ASSESSMENT AND PLAN 1. Pain in joint of left foot 2. Primary osteoarthritis of left foot Explained findings to patient and her caregiver. While this may be a Lisfranc sprain, I think it ismore likely that her symptoms are due to arthritis. Made some recommendations for supportive footwear. Augmenting that with elastic arch binder. In the short-term I would like it to continue in the cam boot to see if we can calm this down. WRITTEN COMMUNICATION TO PATIENT: The elastic band around your arch should help. If it feels worse with it on, then do not use it. If it is helpful, wear it every day, but always take it off at bedtime. You should wear the cast boot whenever you are standing or walking. Even just walking to the bathroom, the boot should be on you foot. Reno Suarez DPM [facility] [place], [place] documented in this encounter Plan of Treatment Upcoming Encounters Date Type Department Care Team (Late st Contact Info) Description 03/04/2025 14:00 EDT Telemedicine [facility] Neurology Clinic [address] [place], [place] [address] Brayan Polk MD [address] [facility] [address] [place] [phone] 07/14/2025 14:30 EDT Office Visit [facility] Cancer Center Hematology & Oncology - [address] [id number] Evin Maria MD [address] [facility], [address] [place] [address] documented as of this encounter Visit Diagnoses Diagnosis Pain in joint of left foot- Primary Pain in joint, ankle and foot Primary osteoarthritis of left foot documented in this encounter Care Teams Grounds And Nursery Specialist Relationship Specialty Start Date End Date Romario Hairston MD [address], [address] [id number] PCP - General 07/06/20 documented as of this encounter
--- OUTSIDE RECORDS SUMMARY | 2024-12-03 15:57 | XMS_ITS | Encounter Summary ---
Author Organization [facility] Address [address] [place] [address] Care Team Providers Care Cutter Operator Brick Name Role Phone Romario Hairston MD Primary Care Provider +1- [phone] Reason for Visit * Reason Onset Date Comments Balance problem 10/30/2021 Encounter Details Date Type Department Care Team (Late st Contact Info) Description 10/30/2021 Telephone [facility] [address] [place] [address] Brayan Polk MD [address] [facility] [address] [place] [address] Balance problem Social History Tobacco Use Types Packs/Day Years [...] Telephone Encounter - Vashti Grover RN - 10/31/2021 1115 EST Scheduled patient for f/u. * Telephone Encounter - Brayan Polk MD - 10/31/2021 0934 EST If you mean next Saturday afternoon the 14 that's fine. * Telephone Encounter - Vashti Grover RN - 10/31/2021 0859 EST Ever can only do late afternoons. Today they have another visit and he does not feel he can schedulewith us also. Your next afternoon appointment would be Saturday next with your permission. He also cannot do Zoom in your morning openings. He is willing to come in at 5 pm someday this weekif that is OK also * Telephone Encounter - Brayan Polk MD - 10/31/2021 0835 EST Timing seems to indicate adding lacosamide 50mg twice a day is about when she started being off balance. I think we should switch this to lamotrigine, but we'll have to keep her on the lacosamide while we slowly get her on lamotrigine. Can you schedule a visit this week so we can discuss? Ok to use3:30 slot this afternoon if that's the only option. Fine if they prefer to come in but I think zoomwould suffice. * Telephone Encounter - Rosalinda Ashton - 10/30/2021 1552 EST [phone] - Ever pts balance is off for past 2 weeks. She is loosing her balance is off. Only 1 seizure since the new medication and only lasted 2 minutes He was told by the eye dr to all her PCP get a xray of her throat and heart. documented in this encounter Plan of Treatment Upcoming Encounters Date Type Department Care Team (Late st Contact Info) Description 03/04/2025 14:00 EDT Telemedicine [facility] [address] [place] [address] Brayan Polk MD [address] [place] [address] [address] [place] [address] 07/14/2025 14:30 EDT Office Visit [facility] Center Hematology & Oncology - [address] [address] Evin Maria MD [address] [place] [address], [facility], [address] [place] [address] documented as of this encounter Visit Diagnoses Not on filedocumented in this encounter Care Teams Cutter Operator Brick Relationship Specialty Start Date End Date Romario Hairston MD [address] [place] [address] PCP - General 07/06/20 documented as of this encounter
--- OUTSIDE RECORDS SUMMARY | 2024-12-03 15:57 | XMS_ITS | Encounter Summary ---
Author Organization [facility] Address [address] [place] [address] Care Team Providers Care Frit Maker Name Role Phone Romario Hairston MD Primary Care Provider +1- [phone] Reason for Visit * Reason Comments Telemedicine Video Visit Encounter Details Date Type Department Care Team (Late st Contact Info) Description 07/12/2021 14:00 EDT Telemedicine [facility] Cancer Center Hematology & Oncology - [address] [address] Evin Maria MD [address] [place] [address], [address] [place] [address] Cerebral venous sinus thrombosis (Primary Dx) Social History Tobacco Use [...] Progress Notes * Evin Maria MD - 07/12/2021 1400 EDT Thrombosis & Hemostasis Program (THP) Follow Up Visit Date of Service: 07/12/2021 Problem List: Patient Active Problem List Diagnosis Date Noted ??? Primary hypercoagulable state ([facility]) 03/23/2020 Thrombosis Events A. 11/17/2019: Right greater [...] 2.5mg PO BID for secondary prevention. ??? Aphasia ??? Seizure ([facility]) 07/16/2020 ??? History of cranial surgery 07/12/2020 ??? Brain herniation ([facility]) 02/17/2020 ??? Cerebral edema ([facility]) 02/17/2020 ??? 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 Cerebral venous thrombosis 02/14/2020 ??? Encounter for insertion or removal of intrauterine contraceptive device 02/12/2020 ??? Nicotine dependence, unspecified, uncomplicated 02/12/2020 ??? Perimenopausal 02/12/2020 ??? Post concussion syndrome 02/12/2020 ??? Tobacco abuse 12/02/2012 ??? Chronic low back pain 10/13/2012 ??? Back pain 09/25/2012 ??? Left-sided nontraumatic intracerebral hemorrhage ([facility]) 03/02/2020 Status post decompressive hemicraniectomy Chief Complaint Patient presents with ??? Telemedicine Video Visit The concept of ???Telemedicine?? has been described to the patient.? Patient has been informed of the anticipated benefits and possible risks.? Patient understands the information provided regardingtelemedicine, has had the opportunity to ask questions about this information, and all questions have been answered to patient???s satisfaction. Patient consents for the use of telemedicine in his/her medical care and authorizes the transmission of any relevant medical information to providers and their staff involved in patient???s medical or mental health care. HPI: Ms. White is doing o.k. She is getting out of the house and her mobility is improving. Her speech is getting more fluent and she is better able to find her words. She has not fallen since shegot out of the hospital in March 2020. She has not noticed any bleeding or bruising. She has noshortness of breath. She continues to have episodes of anxiety and she is working with her PCP on this. ROS: (Intake form with complete ROS reviewed and scanned into [employer]ISM) Pertinent positives: See HPI Pertinent negatives: See HPI Social History: Patient reports that she has quit smoking. She has a 3.75 pack-year smoking history. She has never used smokeless tobacco. She reports current alcohol use. Social History Social History Narrative ??? Not on file Medications: OLANZapine, Prazosin, QUEtiapine, acetaminophen, apixaban, aspirin chewable, buPROPion, diclofenac sodium, docusate sodium, ketotifen, lactulose, loratadine, melatonin, pantoprazole, polyethylene glycol, propRANolol, senna, and zonisamide Allergies: Patient is allergic to citalopram, duloxetine, levetiracetam, pregabalin, and zolpidem. Physical Exam: There were no vitals filed for this visit.Estimated body mass index is 27.46 kg/m?? as calculated from the following: Height as of 01/16/21: 162.6 cm (64). Weight as of 01/16/21: 72.6 kg (160 lb). Time on Telephone: 11 minutes. This visit was conducted by telephone (audio only). The visit was not the result of a visit in the past 7 days. The telephone visit did not result in an urgent in-person visit the same day or the next available visit. Evin Maria MD 07/12/2021 14:04 Labs: Basic Metabolic Panel Lab Results Component Value Date NA 141 01/29/2021 K 4.3 01/29/2021 CL 105 01/29/2021 CO2 28 01/29/2021 BUN 6 (L) 01/29/2021 CREATININE 1.07 (H) 01/29/2021 CALCGFR 54 01/29/2021 CAION 1.13 02/16/2020 CALCIUM 7.5 (L) 03/18/2020 CALCCA 8.6 03/18/2020 MG 1.60 (L) 01/29/2021 PHOS 4.6 (H) 03/07/2020 Gastrointestinal Lab Results Component Value Date ALKPHOS 123 03/18/2020 AST 40 03/18/2020 ALT 68 (H) 03/18/2020 CONJBILI 0.0 05/07/2001 UNCONJBILI 0.3 05/07/2001 TBIL <0.5 03/18/2020 TP 5.0 (L) 03/18/2020 LABALBU 2.6 (L) 03/18/2020 LIPASE 69 03/18/2020 Complete Blood Count Lab Results Component Value Date ABO AB 07/12/2020 WBC 5.40 07/17/2020 RBC 3.71 (L) 01/29/2021 HGB 12.7 01/29/2021 HCT 31.2 (L) 07/17/2020 MCV 98.1 (H) 01/29/2021 MCH 34.2 (H) 01/29/2021 MCHC 34.9 01/29/2021 PLT 207 01/29/2021 MPV 10.0 07/17/2020 RDWCV 13.2 07/17/2020 Differential (Absolute) Lab Results Component Value Date DIFFTYPE Auto 07/17/2020 NEUTROABS 2.70 07/17/2020 LYMPHSABS 2.06 07/17/2020 MONOSABS 0.38 07/17/2020 EOSABS 0.22 07/17/2020 BASOSABS 0.03 05/07/2001 Anemia No results found for: RETICCTPCT, IRON, UIBC, TIBC, TRANSFERRIN, FERRITIN, LEAD, FOLATE, PPFVCZFT91, HAPTOGLOBIN Thrombosis Panel Lab Results Component Value Date PROTIME 13.3 07/17/2020 INR 1.1 07/17/2020 PTT 35 07/17/2020 ANTITHROM 129 (H) 07/08/2020 FACTVIIIFA8 215 (H) 07/08/2020 PROTCCLOT 147 07/08/2020 PROTCCLOT 147 07/08/2020 PROTSCLOT 127 07/08/2020 DRVVT 40.1 (H) 07/08/2020 DRVVT 40.1 sec 07/08/2020 Imaging: NA Assessment: Ms. White is a 51 year-old female who had a devastating cerebral sinus thrombosis with a secondary hemorrhage. When anticoagulation was held, she had a PE. She is currently finished primary treatment and is on secondary prevention with apixaban 2.5mg pO BID. This visit was conducted via telephone, but her speech seems more fluent and she is more understanding of her situation. Her friend Ever was with her and about to corroborate her story. Plan: 1. Secondary prevention of VTE A. Continue apixaban 2.5mg pO BID B. Renal function and a CBC about annually - will need to do at next visit. 2. Follow-up 6 months in person (o.k. for later spring to avoid snow). Please contact my office with questions/concerns. Evin Maria M.D. 07/12/2021 14:04 cc: Romario Hairston documented in this encounter Plan of Treatment Upcoming Encounters Date Type Department Care Team (Late st Contact Info) Description 03/04/2025 14:00 EDT Telemedicine [facility] Neurology Clinic [address] [place], [place] [phone] Brayan Polk MD [address] [facility]-[address] [place] [address] 07/14/2025 14:30 EDT Office Visit [facility] Cancer Center Hematology & Oncology - [address] [address] Evin Maria MD [address] [place] [address], [facility], [address] [place] [address] documented as of this encounter Visit Diagnoses Diagnosis Cerebral venous sinus thrombosis- Primary Phlebitis and thrombophlebitis of intracranial venous sinuses documented in this encounter Care Teams Frit Maker Relationship Specialty Start Date End Date Romario Hairston MD [address], [address] [address] PCP - General 07/06/20 documented as of this encounter
--- OUTSIDE RECORDS SUMMARY | 2024-12-03 15:57 | XMS_ITS | Encounter Summary ---
Author Organization [facility] Address [address] [place] [address] Care Team Providers Care Parking Lot Chauffeur Name Role Phone Romario Hairston MD Primary Care Provider +1- [phone] Reason for Visit * Reason Onset Date Comments New/Evolving Symptoms 02/22/2021 Encounter Details Date Type Department Care Team (Late st Contact Info) Description 02/22/2021 Telephone [facility] [address] [place] [address] Brayan Polk MD [address] [facility] [address] [place] [address] New/Evolving Symptoms Social History Tobacco Use Types Packs/Day Years [...] Telephone Encounter - Vashti Grover RN - 02/22/[address] Polk's message below onto Ever. He reports the following about Katelyn: More anxious in the morning than at night. Yesterday her right cheek went numb. She has been worse the last week. Has been giving more propanolol without good results. Just a report - no need for response. * Telephone Encounter - Brayan Polk MD - 02/22/2021 1102 EDT For now it's enough to keep watching it. If it becomes more frequent or progresses up the arm or she develops any abnormal movements there, then we might evaluate it further. * Telephone Encounter - Vashti Grover RN - 02/22/2021 0920 EDT Please advise. * Telephone Encounter - ArturoRita bajwa - 02/22/2021 0917 EDT Ever left a voicemail that that Ynes was having right hand numbness and it went away after 5 mins. Ever would like to know If this is anything to be concerned about? documented in this encounter Plan of Treatment Upcoming Encounters Date Type Department Care Team (Late st Contact Info) Description 03/04/2025 14:[address] [facility] Neurology Clinic [address] [place] [id number] Brayan Polk MD 130 [facility]-[address] [place] [phone] 07/14/2025 14:30 EDT Office Visit [facility] Cancer Center Hematology & Oncology - [address] [id number] Evin Maria MD [address] [facility], [address] [place] [address] documented as of this encounter Visit Diagnoses Not on filedocumented in this encounter Care Teams Parking Lot Chauffeur Relationship Specialty Start Date End Date Romario Hairston MD [address], [address] [id number] PCP - General 07/06/20 documented as of this encounter
--- OUTSIDE RECORDS SUMMARY | 2024-12-03 15:57 | XMS_ITS | Encounter Summary ---
Author Organization [facility] Address [address] [place] [address] Care Team Providers Care Quality Improvement Coordinator (Rn) Name Role Phone Romario Hairston MD Primary Care Provider +1- [phone] Reason for Visit * Reason Comments Seizures Encounter Details Date Type Department Care Team (Late st Contact Info) Description 02/02/2021 16:00 EST Office Visit [facility] [address] [place] [address] Brayan Polk MD [address] [place] [address]-[address] [place] [address] Focal seizure ([facility]) (Primary Dx) Social History Tobacco Use Types [...] Take 3 Caps by mouth at bedtime. 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 female who returns in follow-up with her friend Ever as usual. She continues to have intermittent episode of feeling tense and having heavy breathing, and she can calm herself down significantly with intention. There was another episode recently when she started feelingnumb in the right leg, then arm, and into the right side of her face, then she started having trouble talking. They came to the ED. They did a head CT which showed no new changes. It lasted a total of 15 minutes at most. She has not missed any medication doses. He continues to take an extra dose ofpropranolol sometimes when she is getting very tense and anxious and this helps to make it go away. Summary: ICH related to cerebral venous thrombosis in January 2020, treated with surgical evacuation by Dr Piña, and subsequent cranioplasty, as well as likely symptomatic seizure in June for which she was briefly admitted to [facility], and placed on levetiracetam 1000mg BID which [...] confusion. This is likely epileptic in nature. PAST MEDICAL HISTORY Past Medical History: Diagnosis Date ??? Aphasia ??? Cerebral artery occlusion with cerebral infarction (HCC-CMS) ??? Exercise involving walking flat surfaces ??? History of general anesthesia ??? Left-sided nontraumatic intracerebral hemorrhage (HCC-CMS) 03/02/2020 Status post decompressive hemicraniectomy ??? Memory disorder ??? Seizures (HCC-CMS) ??? Shoulder joint pain right ALLERGIES Allergies Allergen Reactions ??? Citalopram Other reaction(s): increased anxiety ??? Duloxetine Other reaction(s): increased anxiety ??? Levetiracetam Anxiety ??? Pregabalin Other reaction(s): dizziness ??? Zolpidem Other reaction(s): sleep walking with over 5 mg CURRENT MEDICATIONS Outpatient Medications Marked as Taking for the 02/02/21 encounter (Office Visit) with Brayan Polk MD Medication Sig ??? acetaminophen (TYLENOL) 500 mg tablet Take 2 Tabs by mouth every 6 hours. ??? apixaban (ELIQUIS) 2.5 mg tablet Take 1 Tab by mouth 2 times daily. ??? aspirin chewable 81 mg tablet Take 81 mg by mouth daily. ??? buPROPion (WELLBUTRIN SR) 150 mg SR tablet TK 1 T PO QD IN THE MORNING ??? docusate sodium (COLACE) 100 mg capsule [...] Take 3 Caps by mouth at bedtime. ??? [DISCONTINUED] zonisamide (ZONEGRAN) 100 mg capsule Take 2 Caps by mouth at bedtime. NEUROLOGIC EXAM Alert, speech predominantly fluent with intermittent hesitations but no word substitutions. Otherwise normal content. Mild increased tone in the right arm and mildly brisk reflexes in the right arm and leg. No pronator drift. NEUROIMAGING STUDIES: Personally reviewed Noncontrast head CT 02/12/2020: Normal parenchyma, hyperdensity noted in the transverse sinus especially on the left. Noncontrast head CT 08/02/2020: Postsurgical changes on the left side as well as atrophy of the left temporoparietal region, and a small amount of subdural fluid collection with slight hyperdensity suggesting it may be aging blood. Noncontrast head CT 08/13/2020: No changes from prior Noncontrast head CT 10/27/2020 unchanged from prior ASSESSMENT: Ynse White is a 51 y.o. female who returns in follow-up for intracerebral hemorrhage secondary to cerebral venous thrombus in January 2020 treated with evacuation and cranioplasty, and subsequentleft hemispheric focal onset seizure causing right gaze deviation and right arm movements. Other various clinical events she has experienced are very suspicious for non-epileptic events or manifestations of her severe anxiety. Ever has been very diligent with my encouragement in calling when they are concerned about her behaviors being seizure related or not and I think this contact has been helpful for them. Because of this last event that took him to the emergency department and involved her right arm and leg as well as speech abnormality in a pattern very similar seem illogically to the onset of her epileptic seizures, I think is worthwhile to try slightly increasing the dose of zonisamide. She has tolerated this medicine quite well. I asked Ever to call me in a week or so and let me know how things are going. 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, and subsequent symptomatic focal onset seizure -Increase zonisamide to 300 mg once daily, she takes it at night. I sent a new prescription for this for 3 months worth at a time. -Continue speech and language therapy at [facility] rehab -Follow-up in about 3 months again, but I anticipate being in touch with them by the phone when concerning episodes arise again. Brayan Polk MD I spent a total of 30 minutes on the date of this encounter meeting with the patient and reviewing documentation/coordinating care as described in the above note. documented in this encounter Plan of Treatment Upcoming Encounters Date Type Department Care Team (Late st Contact Info) Description 03/04/2025 14:00 EDT Telemedicine [facility] [address] [place], [place] [phone] Baryan Polk MD [address] [facility] [address] [place] [phone] 07/14/2025 14:[address] [facility] Cancer Center Hematology & Oncology - [address] [address] Evin Maria MD 111 [facility], Level [address] [place] [address] documented as of this encounter Visit Diagnoses Diagnosis Focal seizure (HCC-CMS)- Primary Other convulsions documented in this encounter Discontinued Medications Medication Sig Discontinue Reason Start Date End Da te zonisamide (ZONEGRAN) 100 mg capsule Take 2 Caps by mouth at bedtime. Reorder 09/19/2020 02/02/2021 documented as of this encounter Care Teams Quality Improvement Coordinator (Rn) Relationship Specialty Start Date End Date Romario Hairston MD [address], [address] [id number] PCP - General 07/06/20 documented as of this encounter
--- OUTSIDE RECORDS SUMMARY | 2024-12-03 15:57 | XMS_ITS | Encounter Summary ---
Author Organization [facility] Address [address] [place] [address] Care Team Providers Care Presiding Steward Name Role Phone Romario Hairston MD Primary Care Provider +1- [phone] Encounter Details Date Type Department Care Team (Late st Contact Info) Description 08/11/2021 Results Only Imaging [facility] Radiology Results [address] [place] [address] Romario Hairston MD [address] [place] [address] Social History Tobacco Use Types Packs/Day Years [...] Description 03/04/2025 14:00 EDT Telemedicine [facility] Neurology Clinic [address] [place] [phone] Brayan Polk MD [address] [place] [address]-[address] [place] [address] 07/14/2025 14:30 EDT Office Visit [facility] Cancer Center Hematology & Oncology - [address] [address] Evin Maria MD [address] [place] [address], [address] [place] [address] documented as of this encounter Procedures Procedure Name Priority Date/Time Associated Diagnosis Comments CT CHEST WO CONTRAST 08/11/2021 15:10 EDT documented in this encounter Results * CT CHEST WO CONTRAST (08/11/2021 15:10 EDT) Anatomical Region Laterality Modality Chest Computed Tomogra phy 08/11/2021 15:0 6 EDT Narrative 08/11/2021 15:10 EDT ? EXAM: CAT SCAN/CHEST WITHOUT CONTRAST ? EX. D/ (1448) ? CLINICAL INFORMATION: ? R91.1 LUNG NODULE SEEN ON IMAGING STUDY ? CHEST WITHOUT CONTRAST ??08/11/2021 2:48 PM ? Clinical History/Comments: ? R91.1 LUNG NODULE SEEN ON IMAGING STUDY ? Technique: ? Contiguous axial CT images of the chest were acquired without ? intravenous contrast. Multiplanar reformations were created. ? Comparison: ? Chest radiographs 07/08/2020. ? FINDINGS: ? Lower neck: No abnormalities. ? Chest wall soft tissues: No abnormalities. ? Mediastinum and martina: No enlarged mediastinal or hilar lymph nodes. ? The esophagus appears normal. ? Heart and mediastinal vasculature: ??Mild calcified coronary artery ? atherosclerosis. ? Large airways: No abnormalities. ? Lungs: ??Small bands of atelectasis or scarring at the lung bases. ? This accounts for the finding on the comparison radiographs. Tiny ? calcified granuloma at the right lung base. Small benign triangular ? left lower lobe nodule along the major fissure. 3 mm noncalcified ? nodule at the left lung apex (series 3 image 55). ? Pleura: No abnormalities. ? Upper abdomen (limited to upper abdomen, not optimized for abdominal ? imaging): Small cyst in the left hepatic lobe. ? Bones: ??Degenerative spondylosis of the thoracic spine. ? IMPRESSION: ? A band of scarring or atelectasis at the left lung base accounts for ? the finding on the comparison radiographs. There is an incidental 3 ? mm noncalcified left upper lobe pulmonary nodule. If the patient is ? PAGE 1 ? Signed Report ? (CONTINUED) ? high risk for lung cancer, an optional [address] may be performed ? per Fleischner Society guidelines. ? REPORT SIGNED IN OTHER VENDOR SYSTEM 08/11/2021 ?Reported By: Alexis Mix MD ? CC: ? Transcribed Date/Time: 08/11/2021 (1510) ? Communication Specialist: ? Printed Date/Time: 08/11/2021 (1510) ? PAGE 2 ? Signed Report ? Procedure Note Alexis Mix MD - 08/11/2021 EXAM: CAT SCAN/CHEST WITHOUT CONTRAST EX. D/ (1448) CLINICAL INFORMATION: R91.1 LUNG NODULE SEEN ON IMAGING STUDY CHEST WITHOUT CONTRAST 08/11/2021 2:48 PM Clinical History/Comments: R91.1 LUNG NODULE SEEN ON IMAGING STUDY Technique: Contiguous axial CT images of the chest were acquired without intravenous contrast. Multiplanar reformations were created. Comparison: Chest radiographs 07/08/2020. FINDINGS: Lower neck: No abnormalities. Chest wall soft tissues: No abnormalities. Mediastinum and martina: No enlarged mediastinal or hilar lymph nodes. The esophagus appears normal. Heart and mediastinal vasculature: Mild calcified coronary artery atherosclerosis. Large airways: No abnormalities. Lungs: Small bands of atelectasis or scarring at the lung bases. This accounts for the finding on the comparison radiographs. Tiny calcified granuloma at the right lung base. Small benign triangular left lower lobe nodule along the major fissure. 3 mm noncalcified nodule at the left lung apex (series 3 image 55). Pleura: No abnormalities. Upper abdomen (limited to upper abdomen, not optimized forabdominal imaging): Small cyst in the left hepatic lobe. Bones: Degenerative spondylosis of the thoracic spine. IMPRESSION: A band of scarring or atelectasis at the left lung base accountsfor the finding on the comparison radiographs. There is an incidental 3 mm noncalcified left upper lobe pulmonary nodule. If the patient is PAGE 1 Signed Report (CONTINUED) high risk for lung cancer, an optional [address] may be performed per Fleischner Society guidelines. REPORT SIGNED IN OTHER VENDOR SYSTEM 08/11/2021 Reported By: Alexis Mix MD CC: Transcribed Date/Time: 08/11/2021 (1509) Communication Specialist: Printed Date/Time: 08/11/2021 (1509) PAGE 2 Signed Report Romario Hairston MD IMG CT ORDERABLES Final Re sult documented in this encounter Visit Diagnoses Not on filedocumented in this encounter Additional Health Concerns Infection Onset Date Last Indicated Resolved Time R/O COVID-19 Comment:Negative result 03/07/2022 03/07/2022 03/07/2022 9:37 EDT R/O COVID-19 01/28/2024 01/28/2024 01/29/2024 0:27 EST documented as of this encounter Care Teams Presiding Steward Relationship Specialty Start Date End Date Romario Hairston MD [address], [address] [place] [id number] PCP - General 07/06/20 documented as of this encounter
--- OUTSIDE RECORDS SUMMARY | 2024-12-03 15:57 | XMS_ITS | Encounter Summary ---
Author Organization [facility] Address [address] [place] [address] Care Team Providers Care Host Hostess Name Role Phone Romario Hairston MD Primary Care Provider +1- [phone] Reason for Visit * Reason Comments Follow-up Encounter Details Date Type Department Care Team (Late st Contact Info) Description 02/13/2021 16:30 EDT Office Visit [facility] - [facility] & Podiatry [address] [place], [place] [phone] Reno Suarez, [facility] [address] [place], [place] [address] Primary osteoarthritis of left foot (Primary Dx); Pain in joint of left foot Social History Tobacco Use [...] 15:54 EST documented as of this encounter Last Filed Vital Signs Vital Sign Reading Time Taken Comments Blood Pressure - - Pulse 77 02/13/2021 1628 EDT Temperature 36 ??C (96.8 ??F) 02/13/2021 1628 EDT Respiratory Rate - - Oxygen Saturation 94% 02/13/2021 1628 EDT Inhaled Oxygen Concentration - - Weight [...] Progress Notes * Reno Suarez DPM - 02/13/2021 1630 EDT SUBJECTIVE: Chief Complaint Patient presents with ??? Left Foot - Follow-up HPI Ynes is an est. 51 year old here for follow up left foot pain. Seen for initial appointment 1 month ago. Referred with what was thought to be a Lisfranc sprain. However I believe most of her symptoms are arthritic in nature. She continues in the cam boot and useof an elastic arch binder. The latter definitely increase her comfort. She has gone a little bit around the house few steps here and there to dispersing in the morning and later in the day or the middle of the night without the boot and done okay if she has the arch binder on. Pain with no support at all is still present but even that she thinks is less than it was. States that pain level is about 6 or a 7 at its worst, which is improved from 8. Most of the time pain is less than this. Patient is again here with her mailroom assistant/caregiver (Ever) who helps her on a daily basis. Patient has history of TBI/stroke. Current Medication list reviewed. Review of Systems Constitutional: negative for, fever, fatigue, malaise. Musculoskeletal: Positive for foot pain. Dermatologic: Negative for, rash, discoloration, lesions. Neurological: Positive for, Numbness, Tingling, Weakness. OBJECTIVE: Pulse 77 Temp 36 ??C (96.8 ??F) (Temporal) SpO2 94% General Exam: Alert and oriented. No acute distress. Appropriate affect. Cognition and memory somewhat impaired from stroke. Healthy body weight. Dermatologic Exam: No contributory dermal lesions. No clinically significant hyperkeratosis. No fissures. No changes in skin texture, color, or temperature in the symptomatic area. Orthopedic Exam: Tender to palpation dorsal left foot specifically around second and third metatarsocuneiform joints. As some pain with range of motion of the tarsometatarsal is particularly with pronation supination around the longitudinal midtarsal joint axis but the pain is at the tarsometatarsal joints, not the midtarsal joints. No acute inflammation is evident Metatarsal squeeze test is minimally uncomfortable. Neurologic Exam: With inversion, eversion, and to lesser extent dorsiflexion and plantarflexion against resistance, patient had some tarsometatarsal his pain is well. This appears to be all from juststress on the joints rather than any muscle or tendon involvement. ASSESSMENT AND PLAN: 1. Primary osteoarthritis of left foot Continue with use of arch binder on a regular basis. Can gradually try weaning off of the cam boot a little bit. Try 1 hour/day this week, 2 hours/day next week. If that is tolerated well then go to 4 hours/day week after. 2. Pain in joint of left foot Patient has diclofenac gel. She is able to use this but has not been very consistent with it. She is on Eliquis so would rather not use it 4 times a day, but I think twice a day would be appropriate and with very low risk. Discussed supportive shoes that might be a good thing to transition to when we completely eliminatethe boot. Continued use of orthotic insoles. Follow-up in 6 weeks. Patient Active Problem List Diagnosis ??? Back [...] by mouth at bedtime. 270 Cap 1 No current facility-administered medications for this visit. Allergies Allergen Reactions ??? Citalopram Other reaction(s): increased anxiety ??? Duloxetine Other reaction(s): increased anxiety ??? Levetiracetam Anxiety ??? Pregabalin Other reaction(s): dizziness ??? Zolpidem Other reaction(s): sleep walking with over 5 mg Reno Suarez DPM [facility] [place], [place] documented in this encounter Plan of Treatment Upcoming Encounters Date Type Department Care Team (Late st Contact Info) Description 03/04/2025 14:00 EDT Telemedicine [facility] Neurology Clinic [address] [place] [address] Brayan Polk MD [address] [place] [address] 07/14/2025 14:30 EDT Office Visit [facility] Hematology & Oncology - [address] [address] Evin Maria MD [address] [facility], [facility], [address] 2 [place] [address] documented as of this encounter Visit Diagnoses Diagnosis Primary osteoarthritis of left foot- Primary Pain in joint of left foot Pain in joint, ankle and foot documented in this encounter Care Teams Host Hostess Relationship Specialty Start Date End Date Romario Hairston MD [address], [address] [phone] PCP - General 07/06/20 documented as of this encounter
--- OUTSIDE RECORDS SUMMARY | 2024-12-03 15:57 | XMS_ITS | Encounter Summary ---
Author Organization [facility] Address [address] [place] [address] Care Team Providers Care Novelty Twister Tender Name Role Phone Romario Hairston MD Primary Care Provider +1- [phone] Reason for Visit * Reason Comments Other Encounter Details Date Type Department Care Team (Late st Contact Info) Description 11/07/2021 Refill [facility] Hematology & Oncology - [address] [address] Evin Maria MD [address] [place] [address], [address] [place] [address] Other Social History Tobacco Use [...] MOUTH TWICE DAILY 60 Tablet 6 11/07/2021 10/19/2022 documented in this encounter Plan of Treatment Upcoming Encounters Date Type Department Care Team (Late st Contact Info) Description 03/04/2025 14:00 EDT Telemedicine [facility] - [facility] Neu[facility] [address] [place] [address] Brayan Polk MD [address] [place] [address] [place] [phone] 07/14/2025 14:30 EDT Office Visit [facility] Cancer Center Hematology & Oncology - [address] [phone] Evin Maria MD [address] [place] [address], [facility], [address] [place] [address] documented as of this encounter Visit Diagnoses Not on filedocumented in this encounter Discontinued Medications Medication Sig Discontinue Reason Start Date End Da te ELIQUIS 2.5 mg tablet TAKE 1 TABLET BY MOUTH TWICE DAILY 04/17/2021 11/07/2021 documented as of this encounter Additional Health Concerns Infection Onset Date Last Indicated Resolved Time R/O COVID-19 Comment:Negative result 03/07/2022 03/07/2022 03/07/2022 9:37 EDT R/O COVID-19 01/28/2024 01/28/2024 01/29/2024 0:27 EST documented as of this encounter Care Teams Novelty Twister Tender Relationship Specialty Start Date End Date Romario Hairston MD [address] [place] [address] PCP - General 07/06/20 documented as of this encounter
--- OUTSIDE RECORDS SUMMARY | 2024-12-03 15:57 | XMS_ITS | Encounter Summary ---
Author Organization [facility] Address [address] [place] [address] Care Team Providers Care Paper Bag Maker Name Role Phone Romario Hairston MD Primary Care Provider +1- [phone] Encounter Details Date Type Department Care Team (Late st Contact Info) Description 01/29/2021 Results Only [facility] [phone] Kassandra Odom, DO [address] [place] [address] Social History Tobacco Use Types [...] Info) Description 03/04/2025 14:00 EDT Telemedicine [facility] Neurology Clinic [address] [place] [address] Brayan Polk MD [address] [place] [address] [place] [phone] 07/14/2025 14:30 EDT Office Visit [facility] Cancer Center Hematology & Oncology - [address] [phone] Evin Maria MD [address] [place] [address], [address] [place] [address] documented as of this encounter Procedures Procedure Name Priority Date/Time Associated Diagnosis Comments COMPLETE BLOOD COUNT WITH DIFFERENTIAL (AUTO) Routine 01/29/2021 3:28 EST MAGNESIUM Routine 01/29/2021 3:28 EST COMPREHENSIVE METABOLIC PANEL (CMP) Routine 01/29/2021 3:28 EST documented in this encounter Results * (ABNORMAL) MAGNESIUM (01/29/2021 3:28 EST) Pathologist [facility] Magnesium 1.60(L) 1.7 - 2.8 mg/dL 01/29/2021 4:08 [facility] 01/29/2021 3:28 EST 01/29/2021 3:30 EST Kassandra Odom DO CHEMISTRY & BLOOD GAS OR DERABLES Final Result [facility] [address] [place] [address] * (ABNORMAL) COMPREHENSIVE METABOLIC PANEL (CMP) (01/29/2021 3:28 EST) Pathologist [facility] Albumin % 3.9 3.4 - 4.9 g/dL 01/29/2021 4:08 [facility] ALKALINE PHOSPHATASE - [facility] 164(H) 38 - 126 U/L 01/29/2021 4:08 [facility] BILIRUBIN TOTAL 0.5 0.2 - 1.3 mg/dL 01/29/2021 4:08 [facility] BUN - [facility] 6(L) 10 - 26 mg/dL 01/29/2021 4:08 [facility] CALCIUM - [facility] 9.3 8.5 - 10.5 mg/dL 01/29/2021 4:08 [facility] Chloride 105 96 - 110 mmol/L 01/29/2021 4:08 [facility] CO2 Total 28 22 - 32 mEq/L 01/29/2021 4:08 [facility] CREATININE 1.07(H) 0.52 - 1.04 mg/dL 01/29/2021 4:08 [facility] eGFR 54 01/29/2021 4:08 [facility] Comment: Stage 3: Moderate renal impairment is defined as GFR 30-59 Multiply result by 1.210 for patients. eGFR calculated using the IDMS-traceable MDRD Study Equation. ??(effective 09/27/2014) Anion Gap 8 0 - 18 01/29/2021 4:08 [facility] GLUCOSE - [facility] 96 70 - 100 mg/dL 01/29/2021 4:08 [facility] Potassium 4.3 3.5 - 5.0 mEq/L 01/29/2021 4:08 [facility] Sodium 141 136 - 145 mEq/L 01/29/2021 4:08 [facility] TOTAL PROTEIN - [facility] 6.3 6.2 - 8.2 gm/dL 01/29/2021 4:08 [facility] SGOT/AST - [facility] 22 14 - 36 U/L 01/29/2021 4:08 [facility] SGPT/ALT - [facility] 14 0 - 35 U/L 4:08 [facility] 01/29/2021 3:28 EST 01/29/2021 3:30 EST Kassandra Odom DO CHEMISTRY & BLOOD GAS OR DERABLES Final Result Performing Organization Address City/State/[facility] Co de Phone Number [facility] [address] [place] [address] * (ABNORMAL) COMPLETE BLOOD COUNT WITH DIFFERENTIAL (AUTO) (01/29/2021 3:28 EST) ABSOLUTE NEUTROPHIL COUN - [facility] 2.8 2.2 - 8.85 10e3/uL 01/29/2021 3:34 [facility] BASO # - [facility] 0.04 0.01 - 0.11 10e/uL 01/29/2021 3:34 [facility] BASO % - [facility] 1 0 - 2 % 01/29/2021 3:34 [facility] EOS # - [facility] 0.01(L) 0.03 - 0.61 10e3/ul 01/29/2021 3:34 [facility] EOS % - [facility] 0 0 - 5 % 01/29/2021 3:34 [facility] GRAN % - [facility] 45.5 40 - 80 % 01/29/2021 3:34 [facility] HEMATOCRIT - [facility] 36.4 34.9 - 44.4 % 01/29/2021 3:34 [facility] HEMOGLOBIN - CV 12.7 11.6 - 15.2 g/dl 01/29/2021 3:34 [facility] IG# - [facility] 0.03 0 - 0.7 10e3/uL 01/29/2021 3:34 [facility] IG% - [facility] 0.5 0 - 0.9 % 01/29/2021 3:34 [facility] LYMPH # - [facility] 3.0 1.09 - 3.3 10e3/ul 01/29/2021 3:34 [facility] LYMPH% - [facility] 48.7(H) 20 - 40 % 01/29/2021 3:34 [facility] MEAN CORPUSCULAR HGB - CV 34.2(H) 26.7 - 33.3 pg 01/29/2021 3:34 [facility] MEAN CORPUSCULAR HGB CONC - CV 34.9 32.1 - 35.9 g/dL 01/29/2021 3:34 [facility] MEAN CELL VOLUME - CV 98.1(H) 81 - 98 fl 01/29/2021 3:34 [facility] MONO # - [facility] 0.3 0.1 - 0.8 10e3/uL 01/29/2021 3:34 [facility] MONO% - [facility] 4.4 0 - 12 % 01/29/2021 3:34 [facility] PLATELET COUNT 207 141 - 377 10e3/ul 01/29/2021 3:34 [facility] RED BLOOD COUNT - CV 3.71(L) 3.86 - 5.04 10e6/ul 01/29/2021 3:34 [facility] RED CELL DISTRI WIDTH - [facility] 14.7 <14.7 % 01/29/2021 3:34 [facility] WHITE BLOOD COUNT - CV 6.1 4.0 - 12.4 10e3/ul 01/29/2021 3:34 [facility] 01/29/2021 3:28 EST 01/29/2021 3:31 EST us Kassandra Odom DO HEMATOLOGY & PF4 ORDERAB LES Final Result [facility] [address] [place] [address] documented in this encounter Visit Diagnoses Not on filedocumented in this encounter Care Teams Paper Bag Maker Relationship Specialty Start Date End Date Romario Hairston MD [address] [facility] [email or web address], [address] [address] PCP - General 07/06/20 documented as of this encounter
--- OUTSIDE RECORDS SUMMARY | 2024-12-03 15:57 | XMS_ITS | Encounter Summary ---
Author Organization [facility] Address [address] [place] [address] Care Team Providers Care Consumer Educator Name Role Phone Romario Hairston MD Primary Care Provider +1- [phone] Reason for Visit * Reason Onset Date Comments New/Evolving Symptoms 04/10/2021 Encounter Details Date Type Department Care Team (Late st Contact Info) Description 04/10/2021 Telephone [facility] - [facility] Neurology Clinic [address] [place] [address] Brayan Polk MD 130 [facility] [address] [place] [address] New/Evolving Symptoms Social History Tobacco [...] Telephone Encounter - Vashti Grover RN - 04/11/2021 1310 EDT Ever verbalized understanding of Dr. Polk's message and will contact Ynes's psychiatrist. * Telephone Encounter - Brayan Polk MD - 04/11/2021 1011 EDT I'm sorry to hear that. This is something she'll have to address with her PCP, or psychiatrist if she's been able to get one yet. Doesn't sound like it has anything to do with seizure. * Telephone Encounter - Vashti Grover RN - 04/11/2021 0918 EDT Please advise. * Telephone Encounter - Rita Del Castillo - 04/10/2021 1420 EDT Ever is calling to report that Ynes has been very anxious for the past 7-8 days and at night is hard to settle down. Please advise. documented in this encounter Plan of Treatment Upcoming Encounters Date Type Department Care Team (Late st Contact Info) Description 03/04/2025 14:00 EDT Telemedicine [facility] Neurology Clinic [address] [place] [address] Brayan Polk MD 130 [facility]-[address] [place] [address] 07/14/2025 14:30 EDT Office Visit [facility] Hematology & Oncology - [address] [phone] Evin Maria MD [address] [facility], [facility], [address] [place] [address] documented as of this encounter Visit Diagnoses Not on filedocumented in this encounter Care Teams Consumer Educator Relationship Specialty Start Date End Date Romario Hairston MD [address], [address] [address] PCP - General 07/06/20 documented as of this encounter
--- OUTSIDE RECORDS SUMMARY | 2024-12-03 15:57 | XMS_ITS | Encounter Summary ---
Author Organization [facility] Address [address] [place] [address] Care Team Providers Care Police Shift Commander Name Role Phone Romario Hairston MD Primary Care Provider +1- [phone] Encounter Details Date Type Department Care Team (Late st Contact Info) Description 09/18/[address] [facility] Radiology Results [address] [place] [address] Eleazar Ozuna MD [address] [place] [address] Social History Tobacco Use Types [...] EDT Telemedicine [facility] Neurology Clinic [address] [place] [address] Brayan Polk MD [address] [place] [address] [address] [place] [phone] 07/14/2025 14:30 EDT Office Visit [facility] Cancer Center Hematology & Oncology - [address] [phone] Evin Maria MD [address] [place] [address], [facility], [address] [place] [address] documented as of this encounter Procedures Procedure Name Priority Date/Time Associated Diagnosis Comments CT HEAD WO CONTRAST 09/18/2021 7:21 EDT documented in this encounter Results * CT HEAD WO CONTRAST (09/18/2021 7:21 EDT) Anatomical Region Laterality Modality Head Computed Tomogra phy 09/18/2021 7:21 EDT Narrative 09/18/2021 7:21 EDT ? EXAM: CAT SCAN/HEAD WITHOUT CONTRAST ?EX. D/ (0708) ? CLINICAL INFORMATION: ? seizure like activity, hx of ICH ? PROCEDURE INFORMATION: ? Exam: CT Head Without Contrast ? Exam date and time: 09/18/2021 6:53 AM ? Age: 51 years old ? Clinical indication: Other: Seizure like activity, HX of ich; ? Prior surgery; Surgery date: 6+ months ? TECHNIQUE: ? Imaging protocol: Computed tomography [...] ? COMPARISON: ? CT HEAD WITHOUT CONTRAST 01/29/2021 3:37 AM ? FINDINGS: ? Brain: There is a similar area of encephalomalacia in the left ? temporoparietal region. There is no evidence for large acute ? cortical infarct. No intracranial hemorrhage or extraaxial ? collection is identified. There is no significant intracranial ? mass effect. ? Cerebral ventricles: The ventricles and sulci are stable in ? configuration. ? Paranasal sinuses: Visualized sinuses are unremarkable. No fluid ? levels. ? Mastoid air cells: Visualized mastoid air cells are well ? aerated. ? Bones/joints: Prior left frontotemporoparietal craniotomy again ? present. No skull fracture is identified. ? Soft tissues: Unremarkable. ? IMPRESSION: ? No CT evidence for acute intracranial abnormality or significant ? change since 01/29/21. ? REPORT SIGNED IN OTHER VENDOR SYSTEM 09/18/2021 ?Reported By: Shawn Lugo MD ? CC: ? Transcribed Date/Time: 09/18/2021 (07) ? Concrete Buildings Assembler: ? Printed Date/Time: 09/18/2021 (07) ? PAGE 1 ? Signed Report ? Procedure Note Shawn Lugo MD - 09/18/2021 EXAM: CAT SCAN/HEAD WITHOUT CONTRAST EX. D/ (0708) CLINICAL INFORMATION: seizure like activity, hx of ICH PROCEDURE INFORMATION: Exam: CT Head Without Contrast Exam date and time: 09/18/2021 6:53 AM Age: 51 years old Clinical indication: Other: Seizure like activity, HX of ich; Prior surgery; Surgery date: 6+ months TECHNIQUE: Imaging protocol: Computed tomography of the head without contrast. Radiation optimization: All CT scans at this facility use at least one of these dose optimization techniques: automated exposure control; mA and/or kV adjustment per patient size (includes targeted exams where dose is matched to clinical indication); or iterative reconstruction. COMPARISON: CT HEAD WITHOUT CONTRAST 01/29/2021 3:37 AM FINDINGS: Brain: There is a similar [...] skull fracture is identified. Soft tissues: Unremarkable. IMPRESSION: No CT evidence for acute intracranial abnormality or significant change since 01/29/21. REPORT SIGNED IN OTHER VENDOR SYSTEM 09/18/2021 Reported By: Shawn Lugo MD CC: Transcribed Date/Time: 09/18/2021 (07) Concrete Buildings Assembler: Printed Date/Time: 09/18/2021 (6672) PAGE 1 Signed Report Eleazar Ozuna MD IMG CT ORDERABLES Shannon l Result documented in this encounter Visit Diagnoses Not on filedocumented in this encounter Additional Health Concerns Infection Onset Date Last Indicated Resolved Time R/O COVID-19 Comment:Negative result 03/07/2022 03/07/2022 03/07/2022 9:37 EDT R/O COVID-19 01/28/2024 01/28/2024 01/29/2024 0:27 EST documented as of this encounter Care Teams Police Shift Commander Relationship Specialty Start Date End Date Romario Hairston MD [address] [place] [address] PCP - General 07/06/20 documented as of this encounter
--- OUTSIDE RECORDS SUMMARY | 2024-12-03 15:57 | XMS_ITS | Encounter Summary ---
Author Organization [facility] Address [address] [place] [address] Care Team Providers Care Telecommunications Line Installer Name Role Phone Romario Hairston MD Primary Care Provider +1- [phone] Reason for Visit * Reason Onset Date Comments Fatigue 11/13/2021 Encounter Details Date Type Department Care Team (Late st Contact Info) Description 11/13/2021 Telephone [facility] Neurology Clinic [address] [place] [address] Brayan Polk MD [address] [facility] [address] [place] [address] Fatigue Social History Tobacco Use Types Packs/Day Years [...] of Assessment Author No 07/16/2020 18:38 EDT Broderick, Lisa mansi, RN * Do you have serious difficulty [...] encounter Miscellaneous Notes * Telephone Encounter - Vsahti Grover RN - 11/13/2021 1608 EST Ever reluctantly agreed with this plan and will call back in about 10 days to report back. * Telephone Encounter - Brayan Polk MD - 11/13/2021 1520 EST Yes, let's give her a couple of weeks to acclimate to the new medicine and see how she's doing then. * Telephone Encounter - Rosalinda Ashton - 11/13/2021 1313 EST Ever called reporting mykelns tiredness with the new medication documented in this encounter Plan of Treatment Upcoming Encounters Date Type Department Care Team (Late st Contact Info) Description 03/04/2025 14:[address] [facility] Neurology Clinic [address] [place] [address] Brayan Polk MD [address] [facility] [address] [place] [address] 07/14/2025 14:30 EDT Office Visit [facility] Center Hematology & Oncology - [address] [phone] Evin Maria MD 111 [facility], [facility], [address] [place] [address] documented as of this encounter Visit Diagnoses Not on filedocumented in this encounter Care Teams Telecommunications Line Installer Relationship Specialty Start Date End Date Romario Hairston MD [address], [address] [address] PCP - General 07/06/20 documented as of this encounter
--- OUTSIDE RECORDS SUMMARY | 2024-12-03 15:57 | XMS_ITS | Encounter Summary ---
Author Organization [facility] Address [address] [place] [address] Care Team Providers Care Commodity Management Specialist Name Role Phone Romario Hairston MD Primary Care Provider +1- [phone] Reason for Visit * Reason Onset Date Comments Appointment Related 10/12/2021 Encounter Details Date Type Department Care Team (Late st Contact Info) Description 10/12/2021 Telephone [facility] Therapy [address] [place] [address] Joyce Avila, OT [address] [place] [address] Appointment Related Social History Tobacco Use Types [...] encounter Miscellaneous Notes * Telephone Encounter - Tanika Roberson - 10/12/2021 1031 EST Ever called for Ynes to say that she was at the ER for 4 hours yesterday (10/11) and was doing better but is not up to coming in today. documented in this encounter Plan of Treatment Upcoming Encounters Date Type Department Care Team (Late st Contact Info) Description 03/04/2025 14:00 EDT Telemedicine [facility] [address] [place] [address] Brayan Polk MD 130 [facility] [address] [place] [address] 07/14/2025 14:30 EDT Office Visit [facility] Cancer Center Hematology & Oncology - [address] [address] Evin Maria MD 111 [facility], [facility], Level 2 [place] [phone] documented as of this encounter Visit Diagnoses Not on filedocumented in this encounter Care Teams Commodity Management Specialist Relationship Specialty Start Date End Date Romario Hairston MD [facility] [place] [id number] PCP - General 07/06/20 documented as of this encounter
--- OUTSIDE RECORDS SUMMARY | 2024-12-03 15:57 | XMS_ITS | Encounter Summary ---
Author Organization [facility] Address [address] [place] [address] Care Team Providers Care Collection Support Specialist Name Role Phone Romario Hairston MD Primary Care Provider +1- [phone] Encounter Details Date Type Department Care Team (Late st Contact Info) Description 09/18/2021 Documentation Visit [facility] [address] [place] [address] Brayan Polk MD 130 [facility] [address] [place] [address] Social History Tobacco Use Types [...] Progress Notes * Brayan Polk MD - 09/18/2021 0944 EDT Called by ED. Yens was brought in for a possible seizure. She had bitten her tongue and was confused after it. Further details unavailable as current ED provider got only a report from the previous provider. With those details only it is more likely than not a seizure rather than the myriad of other events she has which are due to anxiety. I asked them to draw a zonisamide level, and increase to 400mg once daily. If the level comes back low eventually, would go back to 300mg once daily. ADDENDUM: Ever called the clinic later in the day and said he had been giving Ynes 200mg daily prior to this seizure instead of 300mg daily, the likely cause of the seizure. He will give her 300mg daily. documented in this encounter Plan of Treatment Upcoming Encounters Date Type Department Care Team (Late st Contact Info) Description 03/04/2025 14:00 EDT Telemedicine [facility] [address] [place] [address] Brayan Polk MD 130 [facility] [address] [place] [phone] 07/14/2025 14:30 EDT Office Visit [facility] Cancer Center Hematology & Oncology - [address] [address] Evin Maria MD [address] [place] [address], Level 2 [place] [address] documented as of this encounter Visit Diagnoses Not on filedocumented in this encounter Care Teams Collection Support Specialist Relationship Specialty Start Date End Date Romario Hairston MD [address] [place] [id number] PCP - General 07/06/20 documented as of this encounter
--- OUTSIDE RECORDS SUMMARY | 2024-12-03 15:57 | XMS_ITS | Encounter Summary ---
Author Organization [facility] Address [address] [place] [address] Care Team Providers Care X Ray Tech Name Role Phone Romario Hairston MD Primary Care Provider +1- [phone] Reason for Visit * Reason Onset Date Comments Anxiety 06/14/2021 Encounter Details Date Type Department Care Team (Late st Contact Info) Description 06/14/2021 Telephone [facility] Neu[facility] Clinic [address] [place] [address] Brayan Polk MD 130 [facility] [address] [place] [address] Anxiety Social History Tobacco Use Types Packs/Day Years [...] Telephone Encounter - Brayan Polk MD - 06/19/2021 1109 EDT Agree, and appreciate the updates from Ever. I hope she also has had a chance to meet her new psychiatrist who will help manage the anxiety. * Telephone Encounter - Vashti Grover RN - 06/14/2021 1635 EDT Spoke with Ever who described Ynes's actions as being very anxious and moving her legs all the time. I clarified with Ever that he does not suspect seizure activity. He is wondering if it has something to do with another stroke. Because the actions he described are the same descriptions found inpast office notes of Dr. Polk and there is no report of ew symptoms, I told him that it is proba reji not associated with a stroke. Ever is fustrated as he feels that Ynes has a run of a few weeks where things are going really well and then she will have a really bad week, about every five weeks. Ever denied changes in sleep, routine or diet before these bad times. I suggested that perhaps this is just Ynes's natural rhythm and that she will have off days sometimes. Dr. Jam Curtis wants to make sure with you that these patterns are not indicative of stroke activity. * Telephone Encounter - Rita Del Castillo - 06/14/2021 6201 EDT Ever left a voicemail during lunch hour that Ynes has been very anxious the last 4-5 nights and her legs were moving a lot. documented in this encounter Plan of Treatment Upcoming Encounters Date Type Department Care Team (Late st Contact Info) Description 03/04/2025 14:00 EDT Telemedicine [facility] Neurology Clinic [address] [place] [id number] Brayan Polk MD 130 [facility] [address] [place] [address] 07/14/2025 14:30 EDT Office Visit [facility] Cancer Center Hematology & Oncology - [address] [phone] Evin Maria MD 111 [facility], Level [address] [place] [address] documented as of this encounter Visit Diagnoses Not on filedocumented in this encounter Care Teams X Ray Tech Relationship Specialty Start Date End Date Romario Hairston MD [address], [address] [phone] PCP - General 07/06/20 documented as of this encounter
--- OUTSIDE RECORDS SUMMARY | 2024-12-03 15:57 | XMS_ITS | Encounter Summary ---
Author Organization [facility] Address [address] [place] [address] Care Team Providers Care Therapy Technician Name Role Phone Romario Hairston MD Primary Care Provider +1- [phone] Reason for Visit * Reason Onset Date Comments Seizures 09/18/2021 Encounter Details Date Type Department Care Team (Late st Contact Info) Description 09/18/2021 Telephone [facility] Neu[facility] Clinic [address] [place] [address] Vashti Grover RN Seizures Social History Tobacco Use Types Packs/Day Years [...] of Assessment Author No 07/16/2020 18:38 Lisa Muro, AZALEA * Are you blind or do [...] Encounter - Vashti Grover RN - 09/18/2021 1639 EDT I spoke with Dr. Polk - He wants Ynes to get a total of 300 mg zonisamide today and that will be her dose every day from now on. Ever verbalized understanding. He is sceptical that Ynes will be able to tolerate it. He will call on Saturday to check on the zonisamide serum results. * Telephone Encounter - Vashti Grover RN - 09/18/2021 1357 EDT Ever called and reported that Ynes had a seizure this morning. Ever gave her 100 mg of zonisamide.Ynes usually get 300 mg zonisamide at night. How much should he give her tonight? Described seizure as: 5:30 am, arms locked up, she started shaking and drooling, unresponsive. He called 911 and brought her to ER. They gave her 100 mg zonisamide. Ever said that she was getting 200 mg szonisamide at bedtime, but Dr. Polk's 09/05 note states 300 mg at bedtime. Ever said this waswrong and they had agreed on the [address] Polk's note from today states she was to go to 400 mg daily. Please advise documented in this encounter Plan of Treatment Upcoming Encounters Date Type Department Care Team (Late st Contact Info) Description 03/04/2025 14:00 EDT Telemedicine [facility] Neurology Clinic [address] [place] [address] Brayan Polk MD 130 [facility] [address] [place] [address] 07/14/2025 14:30 EDT Office Visit [facility] Cancer Center Hematology & Oncology - [address] [address] Evin Maria MD [address] [place] [address], [address] [place] [address] documented as of this encounter Visit Diagnoses Not on filedocumented in this encounter Care Teams Therapy Technician Relationship Specialty Start Date End Date Romario Hairston MD [address], [address] [phone] PCP - General 07/06/20 documented as of this encounter
--- OUTSIDE RECORDS SUMMARY | 2024-12-03 15:57 | XMS_ITS | Encounter Summary ---
Author Organization [facility] Address [address] [place] [address] Care Team Providers Care Process Technician Name Role Phone Romario Hairston MD Primary Care Provider +1- [phone] Encounter Details Date Type Department Care Team (Latest Contact Info) Description 09/05/2021 Travel Social History Tobacco Use Types Packs/Day [...] Contact Info) Description 03/04/2025 14:00 EDT Telemedicine [facility] Neurology Clinic [address] [place] [id number] Brayan Polk MD [address] [place] [address]-[address] [place] [address] 07/14/2025 14:30 EDT Office Visit [facility] Cancer Center Hematology & Oncology - [address] [phone] Evin Maria MD 111 [facility], Level 2 [place] [address] documented as of this encounter Visit Diagnoses Not on filedocumented in this encounter Care Teams Process Technician Relationship Specialty Start Date End Date Romario Hairston MD [address], [address] [id number] PCP - General 07/06/20 documented as of this encounter
--- OUTSIDE RECORDS SUMMARY | 2024-12-03 15:57 | XMS_ITS | Encounter Summary ---
Author Organization [facility] Address [address] [place] [address] Care Team Providers Care Director Speech Language Name Role Phone Romario Hairston MD Primary Care Provider +1- [phone] Encounter Details Date Type Department Care Team (Latest Contact Info) Description 10/11/2021 Travel Social History Tobacco Use Types Packs/Day [...] Description 03/04/2025 14:00 EDT Telemedicine [facility] Neurology Clinic [address] [place] [id number] Brayan Polk MD [address] [place] [address]-[address] [place] [address] 07/14/2025 14:30 EDT Office Visit [facility] Cancer Center Hematology & Oncology - [address] [phone] Evin Maria MD 111 [facility], Level 2 [place] [address] documented as of this encounter Visit Diagnoses Not on filedocumented in this encounter Care Teams Director Speech Language Relationship Specialty Start Date End Date Romario Hairston MD [address], [address] [phone] PCP - General 07/06/20 documented as of this encounter
--- OUTSIDE RECORDS SUMMARY | 2024-12-03 15:57 | XMS_ITS | Encounter Summary ---
Author Organization [facility] Address [address] [place] [address] Care Team Providers Care Training Facilitator Name Role Phone Romario Hairston MD Primary Care Provider +1- [phone] Reason for Visit * Reason Onset Date Comments Update 09/26/2021 Encounter Details Date Type Department Care Team (Late st Contact Info) Description 09/26/2021 Telephone [facility] [address] [place] [address] Brayan Polk MD 130 [facility]-A [address] [place] [address] Update Social History Tobacco Use Types Packs/Day Years [...] Telephone Encounter - Brayan Polk MD - 09/27/2021 1138 EDT Ynes is tolerating the increased dose of zonisamide without side effects, no new episodes concerning for seizures. He just wanted to provide the update that she seems to be doing well on 300mg daily of zonisamide. * Telephone Encounter - Bel Smith - 09/26/2021 1621 EDT Call from Ever asking to speak with Dr. Polk. He wants to let him know how the medication is going. He states that Ynes was sick yesterday, but is doing better today. Did not want to provide any further information, just asked to speak with the drDavida documented in this encounter Plan of Treatment Upcoming Encounters Date Type Department Care Team (Late st Contact Info) Description 03/04/2025 14:00 EDT Telemedicine [facility] Neurology Clinic [address] [place], [place] [phone] Brayan Polk MD 130 [facility] [address] [place] [address] 07/14/2025 14:30 EDT Office Visit [email or web address] Cancer Center Hematology & Oncology - [address] [id number] Evin Maria MD [address] [place] [address], [address] 2 [place] [address] documented as of this encounter Visit Diagnoses Not on filedocumented in this encounter Care Teams Training Facilitator Relationship Specialty Start Date End Date Romario Hairston MD [address] [place] [address] PCP - General 07/06/20 documented as of this encounter
--- OUTSIDE RECORDS SUMMARY | 2024-12-03 15:57 | XMS_ITS | Encounter Summary ---
Author Organization [facility] Address [address] [place] [address] Care Team Providers Care Keg Washer Name Role Phone Romario Hairston MD Primary Care Provider +1- [phone] Reason for Visit * Reason Onset Date Comments New/Evolving Symptoms 01/11/2021 Encounter Details Date Type Department Care Team (Late st Contact Info) Description 01/11/2021 Telephone [facility] Neurology Clinic [address] [place] [address] Brayan Polk MD 130 [facility]-A [address] [place] [address] New/Evolving Symptoms Social History Tobacco [...] Date of Assessment Author Yes 09/14/2020 13:44 iLsa Muro RN documented as of this encounter Mental Status * Because of a physical, mental, or emotional condition, do you have serious difficulty concentrating, remembering, or making decisions? (5 years old or older) Answer Entry Date Author Yes 07/16/2020 18:38 Lisa Muro RN documented in this encounter Miscellaneous Notes * Telephone Encounter - Brayan Polk MD - 01/11/2021 0903 EST Ever reports Ynes's usual generalized body shaking and anxiousness has increased for a few days, in the setting of only one episode in the last month or so. He has been giving her some extra doses of lorazepam which is typically scheduled once at night. She also takes prazosin and propranolol. I suggested he might try an extra propranolol instead of extra lorazepam as he said the lorazepam doseis 5mg, and the propranolol prescription does include as needed in the description. He is comfortable with this, and is also awaiting a call back from her PCP. * Telephone Encounter - Rita Del Castillo - 01/11/2021 0835 EST Ever called to report that Ynes has been over anxious for the last 4 days, more than normal per Ever and he is concerned. Ever is asking for a call back to discuss. documented in this encounter Plan of Treatment Upcoming Encounters Date Type Department Care Team (Late st Contact Info) Description 03/04/2025 14:00 EDT Telemedicine [facility] Neurology Clinic [address] [place], [place] [phone] Brayan Polk MD 130 [facility]-A [address] [place] [address] 07/14/2025 14:30 EDT Office Visit [facility] Cancer Center Hematology & Oncology - [address] [phone] Evin Maria MD [address] [place] [address], [facility], Level 2 [place] [address] documented as of this encounter Visit Diagnoses Not on filedocumented in this encounter Care Teams Keg Washer Relationship Specialty Start Date End Date Romario Hairston MD [facility] [place], [place] [address] PCP - General 07/06/20 documented as of this encounter
--- OUTSIDE RECORDS SUMMARY | 2024-12-03 15:57 | XMS_ITS | Encounter Summary ---
Author Organization [facility] Address [address] [place] [address] Care Team Providers Care Customer Equipment Engineer Name Role Phone Romario Hairston MD Primary Care Provider +1- [phone] Reason for Visit * Reason Onset Date Comments New/Evolving Symptoms 02/14/2021 Encounter Details Date Type Department Care Team (Late st Contact Info) Description 02/14/2021 Telephone [facility] Neu[facility] Clinic [address] [place] [address] Brayan Polk MD 130 [facility]-A [address] [place] [address] New/Evolving Symptoms Social History Tobacco [...] Telephone Encounter - Vashti Grover RN - 02/14/2021 1420 EDT Ever called again and Rita provided the message. * Telephone Encounter - Brayan Polk MD - 02/14/2021 1147 EDT I appreciate the update. Doesn't sound like anything urgent to address now. Ask him to let us know if it doesn't go away in a couple of days. * Telephone Encounter - Rita Del Castillo - 02/14/2021 1042 EDT Ever is calling to report that Ynes is having sharp right leg pains. He is asking if this is something to be concerned about. documented in this encounter Plan of Treatment Upcoming Encounters Date Type Department Care Team (Late st Contact Info) Description 03/04/2025 14:00 EDT Telemedicine [facility] Neurology Clinic [address] [place], [place] [phone] Brayan Polk MD 130 [facility]-A [address] [place] [address] 07/14/2025 14:30 EDT Office Visit [facility] Cancer Center Hematology & Oncology - [address] [address] Evin Maria MD 111 [facility], [address] 2 [place] [address] documented as of this encounter Visit Diagnoses Not on filedocumented in this encounter Care Teams Customer Equipment Engineer Relationship Specialty Start Date End Date Romario Hairston MD [address], [address] [phone] PCP - General 07/06/20 documented as of this encounter
--- OUTSIDE RECORDS SUMMARY | 2024-12-03 15:57 | XMS_ITS | Encounter Summary ---
Author Organization [facility] Address [address] [place] [address] Care Team Providers Care Sole Stainer Name Role Phone Romario Hairston MD Primary Care Provider +1- [phone] Reason for Visit * Reason Onset Date Comments Colonoscopy 08/29/2021..21 Encounter Details Date Type Department Care Team (Late st Contact Info) Description 08/29/2021 Telephone [facility] Cancer Center Hematology & Oncology - [address] [address] Evin Maria MD [address] [place] [address], [address] [place] [address] Colonoscopy (08.30.21) Social History Tobacco Use Types Packs/Day Years [...] Assessment Author No 07/16/2020 18:38 EDT Lisa Borderick RN * Are you blind or do [...] Telephone Encounter - Adali Garza RN - 08/29/2021 1206 EDT Returned call, advised pt should have held 48 hours prior, should hold today and tomorrow. Resume 08/31 * Telephone Encounter - Marifer Gambino - 08/29/2021 0858 EDT Patient is having a colonoscopy on 08.30.21. Ever calling to ask when she should stop/restart eliquis. Please call documented in this encounter Plan of Treatment Upcoming Encounters Date Type Department Care Team (Late st Contact Info) Description 03/04/2025 14:00 EDT Telemedicine [facility] Neurology Clinic [address] [place] [address] Brayan Polk MD 130 [facility]-A [address] [place] [address] 07/14/2025 14:30 EDT Office Visit [facility] Cancer Center Hematology & Oncology - [facility] [address] [place], [place] [address] Evin Maria MD 111 [facility], [address] [place] [address] documented as of this encounter Visit Diagnoses Not on filedocumented in this encounter Care Teams Sole Stainer Relationship Specialty Start Date End Date Romario Hairston MD [address], [address] [phone] PCP - General 07/06/20 documented as of this encounter
--- OUTSIDE RECORDS SUMMARY | 2024-12-03 15:57 | XMS_ITS | Encounter Summary ---
Author Organization [facility] Address [address] [place] [address] Care Team Providers Care Software Qa Manager Name Role Phone Romario Hairston MD Primary Care Provider +1- [phone] Reason for Visit * Reason Onset Date Comments Medication Problem 02/06/2021 Encounter Details Date Type Department Care Team (Late st Contact Info) Description 02/06/2021 Telephone [facility] Neurology Clinic [address] [place] [address] Brayan Polk MD [address] [facility]-A [address] [place] [address] Medication Problem Social History Tobacco Use Types Packs/Day [...] Telephone Encounter - Brayan Polk MD - 02/07/2021 0847 EDT Noted thanks * Telephone Encounter - Vashti Grover RN - 02/06/2021 1352 EDT Spoke with Ever. He believes Ynes is not responding well to the 100 mg increase in zonisamide. Hehas gone back to giving her 200 mg per night. He changed it two nights ago but she is still overly anxious at night and this morning for about 2 minutes she couldn't physically see Ever In front of her. He says that the propanolol is not helping her anxiety at all. He has given it to her a few times but it did not help the anxiety. He reports that she has been off for a few days. He is no longer trying the propanolol. * Telephone Encounter - MagdaleneRita - 02/06/2021 1312 EDT Ever is calling to report that Ynes been very tired, anxious, out of it and problems with her vision, per Ever he was standing right in front of her and she could not see him. He believes this maybe due to the Zonisamide increase so they would like to discontinue. documented in this encounter Plan of Treatment Upcoming Encounters Date Type Department Care Team (Late st Contact Info) Description 03/04/2025 14:00 EDT Telemedicine [facility] - [facility] Neurology Clinic [address] [place] [phone] Brayan Polk MD 130 [facility]-A [address] [place] [address] 07/14/2025 14:30 EDT Office Visit [facility] Cancer Center Hematology & Oncology - [address] [phone] Evin Maria MD 111 [facility], [address] [place] [address] documented as of this encounter Visit Diagnoses Not on filedocumented in this encounter Care Teams Software Qa Manager Relationship Specialty Start Date End Date Romario Hairston MD [address], [address] [id number] PCP - General 07/06/20 documented as of this encounter
--- OUTSIDE RECORDS SUMMARY | 2024-12-03 15:58 | XMS_ITS | Encounter Summary ---
Author Organization [facility] Address [address] [place] [address] Care Team Providers Care Sample Examiner Name Role Phone Romario Hairston MD Primary Care Provider +1- [phone] Reason for Visit * Reason Onset Date Comments Anxiety 12/05/2020 Encounter Details Date Type Department Care Team (Late st Contact Info) Description 12/05/2020 Telephone [facility] - [address] [address] Claus Piña MD [address] [place] [address], Level 5 [place] [address] Anxiety Social History Tobacco Use Types Packs/Day [...] encounter Miscellaneous Notes * Telephone Encounter - Tayler Vallejo RN - 12/05/2020 1224 EST Discussed with Melany Pedro APRN who advised having the patient discuss theses symptoms with her PCP and/or neurologist. Spoke with Ever who was advised of the recommendations. He notes that he has already called her neurologist and is waiting on a call back. * Telephone Encounter - Magalie Yip - 12/05/2020 1021 EST Ever is calling stating Ynes has been having dreams that have been making her more anxious than normal which makes her speech off. He states that he has had to give her an anxiety pill. He also states that she felt her legs were wobbly this morning. documented in this encounter Plan of Treatment Upcoming Encounters Date Type Department Care Team (Late st Contact Info) Description 03/04/2025 14:00 EDT Telemedicine [facility]rology [facility] [address] [place] [address] Brayan Polk MD [address] [facility] [address] [place] [address] 07/14/2025 14:30 EDT Office Visit [facility] Cancer Center Hematology & Oncology - [address] [phone] Evin Maria MD [address] [place] [address], [facility], Level [address] [place] [address] documented as of this encounter Visit Diagnoses Not on filedocumented in this encounter Care Teams Sample Examiner Relationship Specialty Start Date End Date Romario Hairston MD [address], [address] [phone] PCP - General 07/06/20 documented as of this encounter
--- OUTSIDE RECORDS SUMMARY | 2024-12-03 15:58 | XMS_ITS | Encounter Summary ---
Author Organization [facility] Address [address] [place] [address] Care Team Providers Care Custodian Name Role Phone Romario Hairston MD Primary Care Provider +1- [phone] Encounter Details Date Type Department Care Team (Late st Contact Info) Description 10/27/2020 Results Only Imaging [facility] Radiology Results [address] [place] [address] Unknown, Provider, Social History Tobacco Use Types Packs/Day Years [...] 03/04/2025 14:00 EDT Telemedicine [facility] Neurology Clinic [address] [place] [phone] Brayan Polk MD [address] [facility] [address] [place] [address] 07/14/2025 14:30 EDT Office Visit [facility] Cancer Center Hematology & Oncology - [address] [phone] Evin Maria MD [address] [place] [address], [facility], Level 2 [place] [address] documented as of this encounter Procedures Procedure Name Priority Date/Time Associated Diagnosis Comments MA BREAST DIAGNOSTIC UNILATERAL FATOUMATA 10/27/2020 11:45 EST US BREAST LIMITED UNILATERAL 10/27/2020 11:[address] HEAD WO CONTRAST 10/27/2020 1 1:30 EST documented in this encounter Results * US BREAST LIMITED UNILATERAL (10/27/2020 11:45 EST) Anatomical Region Laterality Modality Breast Other 10/27/2020 11:4 5 EST Narrative 10/27/2020 11:45 EST ? EXAM: ULTRASOUND/UNILAT BREAST CALL BACK ??EX. D/ (1040) ? CLINICAL INFORMATION: ? (R) BREAST, CYSTIC VS SOLID ? DIAGNOSTIC RIGHT BREAST MAMMOGRAM/ULTRASOUND ? INDICATION: (R) BREAST, CYSTIC VS SOLID . ? COMPARISON: None. ? TECHNIQUE: 3-D whole breast ML and compression spot CC and MLO views ? were obtained. CAD technology was utilized. ? FINDINGS: ? DIAGNOSTIC RIGHT BREAST MAMMOGRAM: Scattered fibroglandular ? densities. The density and possible architectural distortion seen on ? the previous examination within the retroareolar breast effaces on ? compression views. The retroareolar density has the appearance to ? that seen on prior mammograms. No dominant mass, suspicious ? microcalcification or persistent architectural distortion. A right ? axillary lymph node is redemonstrated. ? DIAGNOSTIC RIGHT BREAST ULTRASOUND: Sonographic examination of the ? retroareolar breast and right axilla was performed. ? There is a benign-appearing lymph node with fatty hilum in the right ? axilla. The retroareolar breast tissue has a normal appearance. No ? solid mass, cyst or abnormal posterior shadowing is identified. ? FINAL ASSESSMENT: ??DIAGNOSTIC RIGHT BREAST MAMMOGRAM/ULTRASOUND - ? BI-RADS Category 1 - Negative. ? RECOMMENDATION: The patient should revert to yearly screening ? mammography. ? The findings and recommendations were communicated to the patient by ? the senior benefits manager shortly following this examination. ? These results will be communicated to your patient via a lay letter ? from Radiology. ??If any additional imaging is needed we will contact ? your patient directly. ? REPORT SIGNED IN OTHER VENDOR SYSTEM 10/27/2020 ?Reported By: Iron Romero MD ? CC: ? Transcribed Date/Time: 10/27/2020 (1145) ? Ham Boner: ? Printed Date/Time: 10/27/2020 (8661) ? PAGE 1 ? Signed Report ? Procedure Note Iron Romero MD - 10/27/2020 EXAM: ULTRASOUND/UNILAT BREAST CALL BACK EX. D/ (1040) CLINICAL INFORMATION: (R) BREAST, CYSTIC VS SOLID DIAGNOSTIC RIGHT BREAST MAMMOGRAM/ULTRASOUND INDICATION: (R) BREAST, CYSTIC VS SOLID . COMPARISON: None. TECHNIQUE: 3-D whole breast ML and compression spot CC and MLOviews were obtained. CAD technology was utilized. FINDINGS: DIAGNOSTIC RIGHT BREAST MAMMOGRAM: Scattered fibroglandular densities. The density and possible architectural distortion seenon the previous examination within the retroareolar breast effaces on compression views. The retroareolar density has the appearance to that seen on prior mammograms. No dominant mass, suspicious microcalcification or persistent architectural distortion. A right axillary lymph node is redemonstrated. DIAGNOSTIC RIGHT BREAST ULTRASOUND: Sonographic examination of the retroareolar breast and right axilla was performed. There is a benign-appearing lymph node with fatty hilum in theright axilla. The retroareolar breast tissue has a normal appearance. No solid mass, cyst or abnormal posterior shadowing is identified. FINAL ASSESSMENT: DIAGNOSTIC RIGHT BREAST MAMMOGRAM/ULTRASOUND - BI-RADS Category 1 - Negative. RECOMMENDATION: The patient should revert to yearly screening mammography. The findings and recommendations were communicated to the patientby the senior benefits manager shortly following this examination. These results will be communicated to your patient via a lay letter from Radiology. If any additional imaging is needed we willcontact your patient directly. REPORT SIGNED IN OTHER VENDOR SYSTEM 10/27/2020 Reported By: Iron Romero MD CC: Transcribed Date/Time: 10/27/2020 (0724) Ham Boner: Printed Date/Time: 10/27/2020 (1054) PAGE 1 Signed Report us Romario Hairston MD [facility] ORDERABLES Final Re sult * MA BREAST DIAGNOSTIC UNILATERAL FATOUMATA (10/27/2020 11:45 EST) Anatomical Region Laterality Modality Breast Mammography 10/27/2020 11:4 5 EST Narrative 10/27/2020 11:45 EST ? EXAM: MAMMOGRAM/MAMMO DX CALL BACK UNI W/ EX. D/ (1797) ? CLINICAL INFORMATION: ? (R) BREAST SUSP FINDINGS ON INITIAL ? DIAGNOSTIC RIGHT BREAST MAMMOGRAM/ULTRASOUND ? INDICATION: (R) BREAST, CYSTIC VS SOLID . ? COMPARISON: None. ? TECHNIQUE: 3-D whole breast ML and compression spot CC and MLO views ? were obtained. CAD technology was utilized. ? FINDINGS: ? DIAGNOSTIC RIGHT BREAST MAMMOGRAM: Scattered fibroglandular ? densities. The density and possible architectural distortion seen on ? the previous examination within the retroareolar breast effaces on ? compression views. The retroareolar density has the appearance to ? that seen on prior mammograms. No dominant mass, suspicious ? microcalcification or persistent architectural distortion. A right ? axillary lymph node is redemonstrated. ? DIAGNOSTIC RIGHT BREAST ULTRASOUND: Sonographic examination of the ? retroareolar breast and right axilla was performed. ? There is a benign-appearing lymph node with fatty hilum in the right ? axilla. The retroareolar breast tissue has a normal appearance. No ? solid mass, cyst or abnormal posterior shadowing is identified. ? FINAL ASSESSMENT: ??DIAGNOSTIC RIGHT BREAST MAMMOGRAM/ULTRASOUND - ? BI-RADS Category 1 - Negative. ? RECOMMENDATION: The patient should revert to yearly screening ? mammography. ? The findings and recommendations were communicated to the patient by ? the senior benefits manager shortly following this examination. ? These results will be communicated to your patient via a lay letter ? from Radiology. ??If any additional imaging is needed we will contact ? your patient directly. ? REPORT SIGNED IN OTHER VENDOR SYSTEM 10/27/2020 ?Reported By: Iron Romero MD ? CC: ? Transcribed Date/Time: 10/27/2020 (1285) ? Ham Boner: ? Printed Date/Time: 10/27/2020 (1301) ? PAGE 1 ? Signed Report ? Procedure Note Iron Romero MD - 10/27/2020 EXAM: MAMMOGRAM/MAMMO DX CALL BACK UNI W/ EX. D/ (1027) CLINICAL INFORMATION: (R) BREAST SUSP FINDINGS ON INITIAL DIAGNOSTIC RIGHT BREAST MAMMOGRAM/ULTRASOUND INDICATION: (R) BREAST, CYSTIC VS SOLID . COMPARISON: None. TECHNIQUE: 3-D whole breast ML and compression spot CC and MLOviews were obtained. CAD technology was utilized. FINDINGS: DIAGNOSTIC RIGHT BREAST MAMMOGRAM: Scattered fibroglandular densities. The density and possible architectural distortion seenon the previous examination within the retroareolar breast effaces on compression views. The retroareolar density has the appearance to that seen on prior mammograms. No dominant mass, suspicious microcalcification or persistent architectural distortion. A right axillary lymph node is redemonstrated. DIAGNOSTIC RIGHT BREAST ULTRASOUND: Sonographic examination of the retroareolar breast and right axilla was performed. There is a benign-appearing lymph node with fatty hilum in theright axilla. The retroareolar breast tissue has a normal appearance. No solid mass, cyst or abnormal posterior shadowing is identified. FINAL ASSESSMENT: DIAGNOSTIC RIGHT BREAST MAMMOGRAM/ULTRASOUND - BI-RADS Category 1 - Negative. RECOMMENDATION: The patient should revert to yearly screening mammography. The findings and recommendations were communicated to the patientby the senior benefits manager shortly following this examination. These results will be communicated to your patient via a lay letter from Radiology. If any additional imaging is needed we willcontact your patient directly. REPORT SIGNED IN OTHER VENDOR SYSTEM 10/27/2020 Reported By: Iron Romero MD CC: Transcribed Date/Time: 10/27/2020 (5696) Ham Boner: Printed Date/Time: 10/27/2020 (5676) PAGE 1 Signed Report Romario Hairston MD [facility] MAMMOGRAPHY ORDERABLES Final Result * CT HEAD WO CONTRAST (10/27/2020 11:30 EST) Anatomical Region Laterality Modality Head Computed Tomogra phy 10/27/2020 11:2 6 EST Narrative 10/27/2020 11:30 EST ? EXAM: CAT SCAN/HEAD WITHOUT CONTRAST ?EX. D/ (1104) ? CLINICAL INFORMATION: ? Z98.890 HX OF CRANIOPLASTY ? SUBDURAL HEMORRHAGE F/U ? INDICATION: Z98.890 HX OF CRANIOPLASTY, SUBDURAL HEMORRHAGE F/U ? HISTORY OF CRANIOPLASTY ? TECHNIQUE: Axial unenhanced CT imaging of the brain was obtained. ? COMPARISON: 08/13/2020. 08/02/2020. 07/30/2020. ? FINDINGS: The patient is status post left convexity craniotomy. The ? small persistent extra-axial collection with dural calcification ? overlying the left craniotomy defect has retracted slightly, ? currently measuring up to 3 mm in thickness (series 201 image 39). ? The extensive adjacent left temporal and parietal encephalomalacia is ? unchanged. Ex vacuo dilation of the temporal tip of the left lateral ? ventricle is again noted. ? No new areas of cortical disruption are seen. No evidence of cerebral ? herniation is noted. The deep benitez nuclei are unchanged. The position ? of the cerebellar tonsils is unremarkable. The skull base is normal ? in appearance. ? The orbits are symmetric. No proptosis is seen. The paranasal sinuses ? are clear. ? IMPRESSION: ? 1. No acute intracranial abnormality detected. ? 2. Status post left convexity cranioplasty. The adjacent low density ? extra-axial collection continues to retract, currently measuring 3 mm ? in thickness. ? 3. Left temporal lobe encephalomalacia, unchanged. ? REPORT SIGNED IN OTHER VENDOR SYSTEM 10/27/2020 ?Reported By: Toni Disla MD ? CC: ? Transcribed Date/Time: 10/27/2020 (1130) ? Ham Boner: ? Printed Date/Time: 10/27/2020 (1130) ? PAGE 1 ? Signed Report ? Procedure Note Toni Disla MD - 10/27/2020 EXAM: CAT SCAN/HEAD WITHOUT CONTRAST EX. D/ (1104) CLINICAL INFORMATION: Z98.890 HX OF CRANIOPLASTY SUBDURAL HEMORRHAGE F/U INDICATION: Z98.890 HX OF CRANIOPLASTY, SUBDURAL HEMORRHAGE F/U HISTORY OF CRANIOPLASTY TECHNIQUE: Axial unenhanced CT imaging of the brain was obtained. COMPARISON: 08/13/2020. 08/02/2020. 07/30/2020. FINDINGS: The patient is status post left convexity craniotomy. The small persistent extra-axial collection with dural calcification overlying the left craniotomy defect has retracted slightly, currently measuring up to 3 mm in thickness (series 201 image 39). The extensive adjacent left temporal and parietal encephalomalaciais unchanged. Ex vacuo dilation of the temporal tip of the leftlateral ventricle is again noted. No new areas of cortical disruption are seen. No evidence ofcerebral herniation is noted. The deep benitez nuclei are unchanged. Theposition of the cerebellar tonsils is unremarkable. The skull base is normal in appearance. The orbits are symmetric. No proptosis is seen. The paranasalsinuses are clear. IMPRESSION: 1. No acute intracranial abnormality detected. 2. Status post left convexity cranioplasty. The adjacent lowdensity extra-axial collection continues to retract, currently measuring 3mm in thickness. 3. Left temporal lobe encephalomalacia, unchanged. REPORT SIGNED IN OTHER VENDOR SYSTEM 10/27/2020 Reported By: Toni Disla MD CC: Transcribed Date/Time: 10/27/2020 (0710) Ham Boner: Printed Date/Time: 10/27/2020 (8750) PAGE 1 Signed Report us Provider Unknown MD [facility] CT ORDERABLES Final Resu lt documented in this encounter Visit Diagnoses Not on filedocumented in this encounter Additional Health Concerns Infection Onset Date Last Indicated Resolved Time R/O COVID-19 Comment:Negative result 03/07/2022 03/07/2022 03/07/2022 9:37 EDT R/O COVID-19 01/28/2024 01/28/2024 01/29/2024 0:27 EST documented as of this encounter Care Teams Custodian Relationship Specialty Start Date End Date Romario Hairston MD [address] [place] [address] PCP - General 07/06/20 documented as of this encounter
--- OUTSIDE RECORDS SUMMARY | 2024-12-03 15:58 | XMS_ITS | Encounter Summary ---
Author Organization [facility] Address [address] [place] [address] Care Team Providers Care Supervisor Spring Up Name Role Phone Romario Hairston MD Primary Care Provider +1- [phone] Reason for Visit * Reason Onset Date Comments New/Evolving Symptoms 11/28/2020 Encounter Details Date Type Department Care Team (Late st Contact Info) Description 11/28/2020 Telephone [facility] - [address] [address] Claus Piña MD [address] [place] [address], [address] 5 [place] [phone] New/Evolving Symptoms Social History Tobacco Use Types [...] Telephone Encounter - Tayler Vallejo RN - 11/28/2020 1358 EST Discussed with Melany Pedro APRN who advised this could be related to trauma from the hemorrhage but that they should follow up with her PCP to rule out any other causes for personality changes. Spoke with Ever who was advised of the recommendations. We also discussed talking with her PCP abouta referral to a TBI clinic if these symptoms persist and other causes are ruled out. Ever verbalizedunderstanding and agreed with the plan. * Telephone Encounter - Adilene Parker - 11/28/2020 1327 EST Patients friend Ever called to report that in the last week patient has had a few episodes of extreme anger that are not typical for her. Ever is wondering if this could be related to her cranioplasty? documented in this encounter Plan of Treatment Upcoming Encounters Date Type Department Care Team (Late st Contact Info) Description 03/04/2025 14:00 EDT Telemedicine [facility] Neurology Clinic [address] [place], [place] [phone] Brayan Polk MD [address] [facility] [address] [place] [phone] 07/14/2025 14:30 EDT Office Visit [facility] Center Hematology & Oncology - [address] [phone] Evin Maria MD [address] [facility], Level [address] [place] [address] documented as of this encounter Visit Diagnoses Not on filedocumented in this encounter Care Teams Supervisor Spring Up Relationship Specialty Start Date End Date Romario Hairston MD [address], [address] [address] PCP - General 07/06/20 documented as of this encounter
--- OUTSIDE RECORDS SUMMARY | 2024-12-03 15:58 | XMS_ITS | Encounter Summary ---
Author Organization [facility] Address [address] [place] [address] Care Team Providers Care Bank Teller Machine Mechanic Name Role Phone Romario Hairston MD Primary Care Provider +1- [phone] Encounter Details Date Type Department Care Team (Late st Contact Info) Description 10/24/2020 Results Only Imaging [facility] Radiology Results [address] [place] [address] Romario Hairston MD [address] [place] [address] Social History Tobacco Use Types [...] Contact Info) Description 03/04/2025 14:00 EDT Telemedicine [facility] Neurology Clinic [address] [place] [phone] Brayan Polk MD [address] [place] [address] [place] [address] 07/14/2025 14:30 EDT Office Visit [facility] Cancer Center Hematology & Oncology - [address] [phone] Evin Maria MD [address] [place] [address], Level 2 [place] [address] documented as of this encounter Procedures Procedure Name Priority Date/Time Associated Diagnosis Comments MA BREAST SCREENING FATOUMATA BILATERAL 10/24/2020 14:00 EST documented in this encounter Results * MA BREAST SCREENING FATOUMATA BILATERAL (10/24/2020 14:00 EST) Anatomical Region Laterality Modality Breast Bilateral Mammography 10/24/2020 11:4 1 EST Narrative 10/24/2020 14:00 EST ? EXAM: MAMMOGRAM/MAMMO BILATERAL SCREEN W ??EX. D/ (1141) ? CLINICAL INFORMATION: ? Z12.39 SCREENING ? INDICATION: Breast cancer screening ? COMPARISON: ??Comparison is made to prior studies currently available. ? TECHNIQUE: ??Full field digital whole breast 2D (C-view) and 3D CC and ? MLO views of both breasts were obtained. CAD technology was utilized. ? FINDINGS: In the central right breast, there is a possible density and ? architectural distortion. ??Also there is possible axillary adenopathy. ? The left breast is normal in appearance. ??No suspicious calcifications ? are seen. ??The breast tissue is of scattered density. ? IMPRESSION: ? 1. ??This is a right breast mammogram with additional imaging required ? (ACR category 0). ??There is a possible central breast abnormality ? and possible axillary adenopathy for which further imaging is ? required. ? 2. ??There is a negative left breast mammogram (ACR category 1). ??Left ? breast screening mammography is recommended in 1 year. ? FINAL ASSESSMENT: ??RIGHT BREAST - Category 0 - Incomplete; additional ?imaging evaluation needed. ? FINAL ASSESSMENT: ??LEFT BREAST - BI-RADS Category 1 - Negative. ? These results will be communicated to your patient via a lay letter ? from Radiology. ??If any additional imaging is needed we will contact ? your patient directly. ? JSP/kamarky ?Reported By: Toni Disla MD ? CC: ? Transcribed Date/Time: 10/24/2020 (1400) ? Director Digital Catalogue: DAVID ? Printed Date/Time: 10/24/2020 (6232) ? PAGE 1 ? Signed Report ? Procedure Note Toni Disla MD - 10/24/2020 EXAM: MAMMOGRAM/MAMMO BILATERAL SCREEN W EX. D/ (1141) CLINICAL INFORMATION: Z12.39 SCREENING INDICATION: Breast cancer screening COMPARISON: Comparison is made to prior studies currentlyavailable. TECHNIQUE: Full field digital whole breast 2D (C-view) and 3D CCand MLO views of both breasts were obtained. CAD technology wasutilized. FINDINGS: In the central right breast, there is a possible densityand architectural distortion. Also there is possible axillaryadenopathy. The left breast is normal in appearance. No suspiciouscalcifications are seen. The breast tissue is of scattered density. IMPRESSION: 1. This is a right breast mammogram with additional imagingrequired (ACR category 0). There is a possible central breastabnormality and possible axillary adenopathy for which further imaging is required. 2. There is a negative left breast mammogram (ACR category 1).Left breast screening mammography is recommended in 1 year. FINAL ASSESSMENT: RIGHT BREAST - Category 0 - Incomplete;additional imaging evaluation needed. FINAL ASSESSMENT: LEFT BREAST - BI-RADS Category 1 - Negative. These results will be communicated to your patient via a lay letter from Radiology. If any additional imaging is needed we willcontact your patient directly. JSP/kamarky Reported By: Toni Disla MD CC: Transcribed Date/Time: 10/24/2020 (1400) Director Digital Catalogue: DAVID Printed Date/Time: 10/24/2020 (0800) PAGE 1 Signed Report Romario Hairston MD IMG MAMMOGRAPHY ORDERABLES Final Result documented in this encounter Visit Diagnoses Not on filedocumented in this encounter Additional Health Concerns Infection Onset Date Last Indicated Resolved Time R/O COVID-19 Comment:Negative result 03/07/2022 03/07/2022 03/07/2022 9:37 EDT R/O COVID-19 01/28/2024 01/28/2024 01/29/2024 0:27 EST documented as of this encounter Care Teams Bank Teller Machine Mechanic Relationship Specialty Start Date End Date Romario Hairston MD [address], [address] [place] [address] PCP - General 07/06/20 documented as of this encounter
--- OUTSIDE RECORDS SUMMARY | 2024-12-03 15:58 | XMS_ITS | Encounter Summary ---
Author Organization [facility] Address [address] [place] [address] Care Team Providers Care Cloth Examiner Hand Name Role Phone Romario Hairston MD Primary Care Provider +1- [phone] Reason for Referral * Referral (Routine/Next Available) - Specialty Report Received Specialty Diagnoses / Procedures Referred By Mitch pruett Referred To Contact Orthopedic Surgery Diagnoses Foot pain, left Audelia Alberts PA-C Phone: tel: fax: [facility] [address] [place] [address] Phone: tel: fax: Referral ID Status Reason Start Date Expiration Date Visits Requested Visits Authorized [id number] Specialty Report Received Specialty Services Required 12/21/2020 1 1 Question Answer Reason for Request: L foot pain, no trauma. Hx of TBI. XR suggests Lisfranc sprain. Reason for Visit * Reason Comments Leg Pain leg/foot pain, diffi culty walking. Encounter Details Date Type Department Care Team (Late st Contact Info) Description 12/21/2020 15:00 EST Walk-In [facility] [address] [place], [place] [id number] Audelia Alberts PA-C [address] [facility] [address] [place] [address] Foot pain, left (Primary Dx) Social History Tobacco Use Types [...] Sign Reading Time Taken Comments Blood Pressure 118/76 12/21/2020 1511 EST Pulse 77 12/21/2020 1511 EST Temperature 36.3 ??C (97.3 ??F) 12/21/2020 1511 EST Respiratory Rate 18 12/21/2020 1511 EST Oxygen Saturation 99% 12/21/2020 1511 EST Inhaled Oxygen Concentration - - Weight [...] Lisa Broderick RN documented in this encounter Progress Notes * Jaky Kinney RN - 12/21/2020 1500 EST CC: leg pain Covid Screening: In the last 72 hours, has the patient had: Shortness of breath, cough, sore throat, nasal congestion, runny nose, fever/chills/body aches, headache, or loss of taste or smell without a reasonable alternative diagnosis*? (If yes, assign patient to ARC schedule) NO If no, in the past 14 days, has the patient had known close contact (< 6 feet for > 15 minutes) with a confirmed Covid-19 positive patient? (If yes, assign patient to ARC schedule.) NO If no, have they had travel outside the [facility] in the past 14 days? (If no, see in [facility]) NO *may be determined by RN/WELDER EXPLOSION or in discussion with available provider (CCA's can defer to Charge Nurse or Nurse they are working with to complete triage when appropriate) * Audelia Alberts PA-C - 12/21/2020 1500 EST [facility] Chief Complaint(s): Chief Complaint Patient presents with ??? Leg Pain leg/foot pain, difficulty walking. Assessment & Plan: 1. Foot pain, left XR FOOT LEFT 3 OR MORE VIEWS AMB CONS/FOLLOW UP PODIATRY X-rays negative for acute fracture or displacement however there is a finding of possible mild Lisfranc widening suggesting sprain. Pain pattern on exam is more consistent with a peroneal tendinitis.Patient was placed in a short walking boot and has a cane that she will use for comfort. I have placed a referral for podiatry eval and she will continue working with physical therapy. She has some diclofenac cream that she may use for pain and continue taking Tylenol. Opted against systemic NSAIDsgiven that she is anticoagulated with Eliquis. I have advised follow-up with PCP with new or worsening symptoms. New Prescriptions No medications on file There are no Patient Instructions on file for this visit. HPI: 50-year-old woman with history of TBI presents with caregiver Ever for eval of left foot/ankle pain.She reports chronic pain however in the past day has more pain and difficulty weightbearing. She does not recall any injury or trauma. She works with physical therapy 2-3 times a week already since her TBI and saw them today, they applied Kinesiotape and recommended x-ray. She did take Tylenol twice today for pain but does not feel it has really helped much. She denies any fever or chills, no numbness/tingling or weakness. No falls recently. ROS: Review of Systems Constitutional: Negative for chills, fever and malaise/fatigue. Musculoskeletal: Negative for falls. Neurological: Negative for tingling, sensory change and weakness. Objective: Vitals and nursing notes reviewed Examination: BP 118/76 Pulse 77 Temp 36.3 ??C (97.3 ??F) Resp 18 SpO2 99% Physical Exam Constitutional: General: She is not in acute distress. Appearance: Normal appearance. Comments: In office supplied wheelchair, able to give a decent history with help little from Ever Musculoskeletal: Comments: Left foot and ankle without swelling or erythema. She has some tenderness on the dorsal aspect of her foot over the cuboid and somewhat so on the peroneal tendon. Range of motion is normal,she does have some pain with dorsiflexion. Calf squeeze is negative, no proximal calf tenderness orswelling. She is neurovascularly intact distally. Neurological: Mental Status: She is alert. Mental status is at baseline. Comments: Some expressive aphasia noted Data reviewed with patient (current and past results): most recent imaging reviewed: XR foot, recent OVs, recent hospitalization documented in this encounter Plan of Treatment Upcoming Encounters Date Type Department Care Team (Late st Contact Info) Description 03/04/2025 14:00 EDT Telemedicine [facility] [address] [place] [address] Brayan Polk MD [address] [facility] [address] [place] [address] 07/14/2025 14:30 EDT Office Visit [facility] Hematology & Oncology - [address] [address] Evin Maria MD [address] [facility], [address] [place] [address] Scheduled Orders Name Type Priority Associated Diagnoses Orde r Schedule XR FOOT LEFT 3 OR MORE VIEWS Imaging Routine Foot pain, left Ordered: 12/21/2020 Scheduled Referrals Name Type Priority Associated Diagnoses Orde r Schedule AMB CONS/FOLLOW UP PODIATRY Outpatient Referral Routine Foot pain, left Ordered: 12/21/2020 documented as of this encounter Procedures Procedure Name Priority Date/Time Associated Diagnosis Comments XR FOOT LEFT 3 OR MORE VIEWS 12/21/2020 15:58 EST documented in this encounter Results * XR FOOT LEFT 3 OR MORE VIEWS (12/21/2020 15:58 EST) Anatomical Region Laterality Modality Lower Extremities Left Computed Radio graphy 12/21/2020 15:5 5 EST Narrative 12/21/2020 15:58 EST ? EXAM: RADIOLOGY EXPRESS CARE/EXP CARE ZHEN EX. D/ (1546) ? CLINICAL INFORMATION: ? FOOT PAIN, LEFT - M79.672 ? INDICATION: FOOT PAIN, LEFT - M79.672. ? COMPARISON: None. ? TECHNIQUE: 3 views of the left foot were obtained. ? FINDINGS: ? There is mild widening of the Lisfranc joint space. This may be seen ? with Lisfranc sprain. Correlate clinically with location of patient's ? pain. ? The soft tissues and bone density throughout the foot are within ? normal limits. No fracture or osteonecrosis is identified. The joints ? of the hindfoot, midfoot and forefoot are well-maintained. No ? radiographic evidence of inflammatory arthritis. ? IMPRESSION: ? 1. Mild widening of the Lisfranc joint space which may be seen with ? Lisfranc sprain. Correlate clinically with location of patient's ? pain. ? 2. Otherwise unremarkable examination. ? REPORT SIGNED IN OTHER VENDOR SYSTEM 12/21/2020 ?Reported By: Iron Romero MD ? CC: ? Transcribed Date/Time: 12/21/2020 (1035) ? Pharmacy Billing Adjudicator: ? Printed Date/Time: 12/21/2020 (6468) ? PAGE 1 ? Signed Report ? Procedure Note Iron Romero MD - 12/21/2020 EXAM: RADIOLOGY EXPRESS CARE/EXP CARE ZHEN EX. D/ (1546) CLINICAL INFORMATION: FOOT PAIN, LEFT - M79.672 INDICATION: FOOT PAIN, LEFT - M79.672. COMPARISON: None. TECHNIQUE: 3 views of the left foot were obtained. FINDINGS: There is mild widening of the Lisfranc joint space. This may beseen with Lisfranc sprain. Correlate clinically with location ofpatient's pain. The soft tissues and bone density throughout the foot are within normal limits. No fracture or osteonecrosis is identified. Thejoints of the hindfoot, midfoot and forefoot are well-maintained. No radiographic evidence of inflammatory arthritis. IMPRESSION: 1. Mild widening of the Lisfranc joint space which may be seen with Lisfranc sprain. Correlate clinically with location of patient's pain. 2. Otherwise unremarkable examination. REPORT SIGNED IN OTHER VENDOR SYSTEM 12/21/2020 Reported By: Iron Romero MD CC: Transcribed Date/Time: 12/21/2020 (9589) Pharmacy Billing Adjudicator: Printed Date/Time: 12/21/2020 (5362) PAGE 1 Signed Report Audelia Alberts PA-C IMG DIAGNOSTIC IMAGING ORDERA BLES Final Result documented in this encounter Visit Diagnoses Diagnosis Foot pain, left- Primary Pain in limb documented in this encounter Historical Medications * This list may reflect changes made after this encounter. lactulose (CHRONULAC) 10 gram/15 mL solution TAKE 15 ML BY MOUTH EVERY DAY NEEDED 11/16/2020 02/04/2024 added in this encounter Care Teams Cloth Examiner Hand Relationship Specialty Start Date End Date Romario Hairston MD [address] [place] [address] PCP - General 07/06/20 documented as of this encounter
--- OUTSIDE RECORDS SUMMARY | 2024-12-03 15:58 | XMS_ITS | Encounter Summary ---
Author Organization [facility] Address [address] [place] [address] Care Team Providers Care Electrical Tech Name Role Phone Romario Hairston MD Primary Care Provider +1- [phone] Encounter Details Date Type Department Care Team (Late st Contact Info) Description 12/07/2020 Results Only Imaging [facility] Radiology Results [address] [place] [address] Damon Manuel MD [address] [place] [address] Social History Tobacco Use Types [...] Info) Description 03/04/2025 14:00 EDT Telemedicine [facility] Neurology Clinic [address] [place] [id number] Brayan Polk MD [address] [place] [address] [place] [phone] 07/14/2025 14:30 EDT Office Visit [facility] Cancer Center Hematology & Oncology - [address] [address] Evin Maria MD [address] [place] [address], [address] [place] [address] documented as of this encounter Procedures Procedure Name Priority Date/Time Associated Diagnosis Comments CT HEAD WO CONTRAST 12/07/2020 2 2:34 EST documented in this encounter Results * CT HEAD WO CONTRAST (12/07/2020 22:34 EST) Anatomical Region Laterality Modality Head Computed Tomogra phy 12/07/2020 22:3 4 EST Narrative 12/07/2020 22:34 EST ? EXAM: CAT SCAN/HEAD WITHOUT CONTRAST ?EX. D/ (2221) ? CLINICAL INFORMATION: ? hx of ICH with change in behavior ? PROCEDURE INFORMATION: ? Exam: CT Head Without Contrast ? Exam date and time: 12/07/2020 21:52 ? Age: 50 years old ? Clinical indication: Other: HX of ich with change in behavior ? TECHNIQUE: ? Imaging protocol: Computed tomography [...] ? COMPARISON: ? CT HEAD WITHOUT CONTRAST 10/27/2020 10:47 ? FINDINGS: ? 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 again seen. No edema or hemorrhage. Benign chronic appearing ? left supratentorial extra-axial calcifications along with ? presumed postsurgical changes in subdural space, stable and ? benign in appearance. No new or suspicious collections. The low ? in density 3 mm left parietal subdural collection is stable and ? benign in appearance. ? Cerebral ventricles: Ex vacuo dilation of the ventricular ? system. ? Bones/joints: Left-sided cranioplasty appears stable. No acute ? calvarial pathology. ? Paranasal sinuses: No acute sinusitis. ? Mastoid air cells: No mastoid effusion. ? Soft tissues: No suspicious lesions. ? IMPRESSION: ? 1. No acute intracranial findings. Stable postsurgical changes ? in the left extra-axial space as described above. ? 2. 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 again seen. ? REPORT SIGNED IN OTHER VENDOR SYSTEM 12/07/2020 ?Reported By: Alisa Flores MD ? CC: ? Transcribed Date/Time: 12/07/2020 (4) ? Hole Digger Truck Driver: [employer] ? Printed Date/Time: 12/07/2020 (4) ? PAGE 1 ? Signed Report ? Procedure Note Alisa Flores MD - 12/07/2020 EXAM: CAT SCAN/HEAD WITHOUT CONTRAST EX. D/ (2221) CLINICAL INFORMATION: hx of ICH with change in behavior PROCEDURE INFORMATION: Exam: CT Head Without Contrast Exam date and time: 12/07/2020 21:52 Age: 50 years old Clinical indication: Other: HX of ich with change in behavior TECHNIQUE: Imaging protocol: Computed tomography of the head without contrast. Radiation optimization: All CT scans at this facility use at least one of these dose optimization techniques: automated exposure control; mA and/or kV adjustment per patient size (includes targeted exams where dose is matched to clinical indication); or iterative reconstruction. COMPARISON: CT HEAD WITHOUT CONTRAST 10/27/2020 10:47 FINDINGS: Brain: Large area of left temporal and parietal encephalomalacia again seen. No edema or hemorrhage. Benign chronic appearing left supratentorial extra-axial calcifications along with presumed postsurgical changes in subdural space, stable and benign in appearance. No new or suspicious collections. The low in density 3 mm left parietal subdural collection is stable and benign in appearance. Cerebral ventricles: Ex vacuo dilation of the ventricular system. Bones/joints: Left-sided cranioplasty appears stable. No acute calvarial pathology. Paranasal sinuses: No acute sinusitis. Mastoid air cells: No mastoid effusion. Soft tissues: No suspicious lesions. IMPRESSION: 1. No acute intracranial findings. Stable postsurgical changes in the left extra-axial space as described above. 2. Large area of left temporal and parietal encephalomalacia again seen. REPORT SIGNED IN OTHER VENDOR SYSTEM 12/07/2020 Reported By: Alisa Flores MD CC: Transcribed Date/Time: 12/07/2020 (659) Hole Digger Truck Driver: Printed Date/Time: 12/07/2020 (9126) PAGE 1 Signed Report Damon Manuel MD IMG CT ORDERABLES Final Result documented in this encounter Visit Diagnoses Not on filedocumented in this encounter Additional Health Concerns Infection Onset Date Last Indicated Resolved Time R/O COVID-19 Comment:Negative result 03/07/2022 03/07/2022 03/07/2022 9:37 EDT R/O COVID-19 01/28/2024 01/28/2024 01/29/2024 0:27 EST documented as of this encounter Care Teams Electrical Tech Relationship Specialty Start Date End Date Romario Hairston MD [address] [place] [id number] PCP - General 07/06/20 documented as of this encounter
--- OUTSIDE RECORDS SUMMARY | 2024-12-03 15:58 | XMS_ITS | Encounter Summary ---
Author Organization [facility] Address [address] [place] [address] Care Team Providers Care No Bake Molder Name Role Phone Romario Hairston MD Primary Care Provider +1- [phone] Reason for Visit * Reason Onset Date Comments New/Evolving Symptoms 08/24/2020 Encounter Details Date Type Department Care Team (Late st Contact Info) Description 08/24/2020 Telephone [facility] Neurology Clinic [address] [place] [address] Brayan Polk MD [address] [facility] [address] [place] [address] New/Evolving Symptoms Social History Tobacco [...] have Coronavirus / COVID-19? No / Unsure 08/05/2020 11:52 EDT documented as of this encounter Functional [...] shopping? Answer Date of Assessment Author Yes 07/27/2020 11:33 Lisa Muro RN documented as of this encounter Mental Status * Because of a physical, mental, or emotional condition, do you have serious difficulty concentrating, remembering, or making decisions? (5 years old or older) Answer Entry Date Author Yes 07/16/2020 18:38 Lisa Muro RN documented in this encounter Miscellaneous Notes * Telephone Encounter - Brayan Polk MD - 08/24/2020 1208 EDT I spoke with Paolo on the phone. She is quite anxious and restless, having trouble sleeping. She has not been having any focal neurologic symptoms. Her headache has been fluctuating, but isparticularly bad when she is feeling anxious and upset, then improves when she calms down. The anxiousness is also interfering with her ability to sleep. She has been taking scheduled Tylenol for theheadaches. She has an appointment in [address] Piña's office to rediscuss anticoagulation. He had taken her off it postoperatively with contingency to restart it down the road after a head CTwas performed. This has since been performed at [facility] and I alerted him to it. For now I think the most important thing is to get her anxiety under control if possible. Apparently there is a referral into psychiatry to help with medication management of anxiety. In the meantime I set I would talk toher PCP and let her know what we have talked about today. I do not see anything emergent from our conversation today which would warrant a trip to the emergency department for another CAT scan. * Telephone Encounter - Yudi Izaguirre - 08/24/2020 1131 EDT Ever called and said that for the past three days the pt has been having headache on the left side of her head as well as eye pain, pt is also seeing black spots. Ever reached out to the pt's pcp and was told to reach out to our office as well as to take her to the ER, but he wanted to reach out first before taking her there documented in this encounter Plan of Treatment Upcoming Encounters Date Type Department Care Team (Late st Contact Info) Description 03/04/2025 14:00 EDT Telemedicine [facility] Neurology Clinic [address] [place] [id number] Brayan Polk MD [address] [facility] [address] [place] [phone] 07/14/2025 14:30 EDT Office Visit [facility] Cancer Center Hematology & Oncology - [address] [id number] Evin Maria MD [address] [place] [address], [address] [place] [phone] documented as of this encounter Visit Diagnoses Not on filedocumented in this encounter Care Teams No Bake Molder Relationship Specialty Start Date End Date Romario Hairston MD [address], [address] [id number] PCP - General 07/06/20 documented as of this encounter
--- OUTSIDE RECORDS SUMMARY | 2024-12-03 15:58 | XMS_ITS | Encounter Summary ---
Author Organization [facility] Address [address] [place] [address] Care Team Providers Care Afloat Cryptologic Manager Name Role Phone Romario Hairston MD Primary Care Provider +1- [phone] Reason for Visit * Reason Onset Date Comments Appointment Related 09/13/2020 Encounter Details Date Type Department Care Team (Late st Contact Info) Description 09/13/2020 Telephone [facility] Neurosurgery - [facility] [address] [place] [address] Tayler Vallejo RN Appointment Related Social History Tobacco Use [...] Date of Assessment Author Yes 07/27/2020 11:33 EDT Lisa Broderick RN documented as of this encounter Mental Status * Because of a physical, mental, or emotional condition, do you have serious difficulty concentrating, remembering, or making decisions? (5 years old or older) Answer Entry Date Author Yes 07/16/2020 18:38 EDT Lisa Broderick RN documented in this encounter Miscellaneous Notes * Telephone Encounter - Tayler Vallejo RN - 09/13/2020 1511 EDT Spoke with patient's partner Ever to confirm following appointment details: Appointment date: 09/14/20 Appointment time: 1350 Provider: Willis Patient will be joined by Ever- both denied any covid symptoms. documented in this encounter Plan of Treatment Upcoming Encounters Date Type Department Care Team (Late st Contact Info) Description 03/04/2025 14:00 EDT Telemedicine [facility] Neurology Clinic [address] [place] [address] Brayan Polk MD [address] [facility] [address] [place] [address] 07/14/2025 14:30 EDT Office Visit [facility] Cancer Center Hematology & Oncology - [address] [address] Evin Maria MD [address] [place] [address], [facility], [address] [place] [address] documented as of this encounter Visit Diagnoses Not on filedocumented in this encounter Care Teams Afloat Cryptologic Manager Relationship Specialty Start Date End Date Romario Hairston MD [address] [place] [address] PCP - General 07/06/20 documented as of this encounter
--- OUTSIDE RECORDS SUMMARY | 2024-12-03 15:58 | XMS_ITS | Encounter Summary ---
Author Organization [facility] Address [address] [place] [address] Care Team Providers Care Mold Machine Operator Name Role Phone Romario Hairston MD Primary Care Provider +1- [phone] Reason for Visit * Reason Onset Date Comments Medications Refill 09/19/2020 Encounter Details Date Type Department Care Team (Late st Contact Info) Description 09/19/2020 Telephone [facility] [address] [place] [address] Brayan Polk MD [address] [facility] [address] [place] [address] Medications Refill Social History Tobacco [...] have Coronavirus / COVID-19? No / Unsure 09/14/2020 13:39 EDT documented as of this encounter Functional [...] Date zonisamide (ZONEGRAN) 100 mg capsule Take 2 Caps by mouth at bedtime. 180 Cap 1 09/19/2020 02/02/2021 documented in this encounter Miscellaneous Notes * Telephone Encounter - Vashti Grover RN - 09/19/2020 1142 EDT Request: zonisamide Last OV: 08/31/2020 Next OV: 11/03/2020 Reference date: 08/31 200 mg daily Action: * Telephone Encounter - Rita Del Castillo - 09/19/2020 1111 EDT Requesting a refill on Zonisamide. Pt is completely out. documented in this encounter Plan of Treatment Upcoming Encounters Date Type Department Care Team (Late st Contact Info) Description 03/04/2025 14:00 EDT Telemedicine [facility] Neurology Clinic [address] [facility], [place] [address] Brayan Polk MD [address] [facility] [address] [place] [address] 07/14/2025 14:30 EDT Office Visit [facility] Cancer Center Hematology & Oncology - [address] [address] Evin Maria MD [address] [facility], [address] [place] [address] documented as of this encounter Visit Diagnoses Not on filedocumented in this encounter Discontinued Medications Medication Sig Discontinue Reason Start Date End Da te zonisamide (ZONEGRAN) 100 mg capsule Take 200 mg by mouth at bedtime. Reorder 08/03/2020 09/19/2020 documented as of this encounter Care Teams Mold Machine Operator Relationship Specialty Start Date End Date Romario Hairston MD [address] [place] [id number] PCP - General 07/06/20 documented as of this encounter
--- OUTSIDE RECORDS SUMMARY | 2024-12-03 15:58 | XMS_ITS | Encounter Summary ---
Author Organization [facility] Address [address] [place] [address] Care Team Providers Care Processing Manager Name Role Phone Romario Hairston MD Primary Care Provider +1- [phone] Encounter Details Date Type Department Care Team (Late st Contact Info) Description 08/13/[address] [facility] Radiology Results [address] [place] [address] Bucky Matta MD Social History Tobacco Use Types Packs/Day Years [...] No 07/16/2020 18:38 EDLisa Rose RN * Are you blind or do [...] [facility] [address] [place] [address] [phone] Brayan Polk MD [address] [place] [address]-[address] [place] [address] 07/14/2025 14:30 EDT Office Visit [facility] Cancer Center Hematology & Oncology - [address] [phone] Evin Maria MD [address] [place] [address], [address] 2 [place] [address] documented as of this encounter Procedures Procedure Name Priority Date/Time Associated Diagnosis Comments CT HEAD WO CONTRAST 08/13/2020 1 9:47 EDT documented in this encounter Results * CT HEAD WO CONTRAST (08/13/2020 19:47 EDT) Anatomical Region Laterality Modality Head Computed Tomogra phy 08/13/2020 19:4 7 EDT Narrative 08/13/2020 19:47 EDT ? EXAM: CAT SCAN/HEAD WITHOUT CONTRAST ?EX. D/ (1935) ? CLINICAL INFORMATION: ? transient right hand and facial numbness ? PROCEDURE INFORMATION: ? Exam: CT Head Without Contrast ? Exam date and time: 08/13/2020 7:11 PM ? Age: 50 years old ? Clinical indication: Numbness / parasthesia; Right; Prior ? surgery; Additional info: Transient right hand and facial ? numbness ? TECHNIQUE: ? Imaging protocol: Computed tomography [...] ? COMPARISON: ? CT HEAD WITHOUT CONTRAST 08/02/2020 2:32 PM ? FINDINGS: ? Brain: The patient has had prior left craniotomy. There is a ? persistent small extra-axial collection deep to the craniotomy, ? with persistent dural calcification. This is stable in size and ? appearance. There is cavitary tissue loss/encephalomalacia noted ? in the left temporal lobe, minimally in the inferior left ? parietal lobe. This is also stable. There is mild ex vacuo ? enlargement of the left lateral ventricle, unchanged. There is ? no new hemorrhage, mass or shift. There is no evidence of a new ? cortical or major vascular territory infarct. ? Ventricles: Ventricular size is unchanged ? Bones/joints: The bony structures are unchanged ? Paranasal sinuses: There is no new sinus opacification ? Mastoid air cells: There is no new mastoid or middle ear ? opacification ? Orbits: Orbits are unchanged in appearance ? Soft tissues: Unremarkable. ? IMPRESSION: ? No new or acute findings when compared with the most recent ? examination from 08/02/2020. ? REPORT SIGNED IN OTHER VENDOR SYSTEM 08/13/2020 ?Reported By: Wendie aCstillo MD ? CC: ? Transcribed Date/Time: 08/13/2020 (1946) ? Analytics Lead: ? Printed Date/Time: 08/13/2020 (1947) ? PAGE 1 ? Signed Report ? Procedure Note Wendie Castillo MD - 08/13/2020 EXAM: CAT SCAN/HEAD WITHOUT CONTRAST EX. D/ (1935) CLINICAL INFORMATION: transient right hand and facial numbness PROCEDURE INFORMATION: Exam: CT Head Without Contrast Exam date and time: 08/13/2020 7:11 PM Age: 50 years old Clinical indication: Numbness / parasthesia; Right; Prior surgery; Additional info: Transient right hand and facial numbness TECHNIQUE: Imaging protocol: Computed tomography of the head without contrast. Radiation optimization: All CT scans at this facility use at least one of these dose optimization techniques: automated exposure control; mA and/or kV adjustment per patient size (includes targeted exams where dose is matched to clinical indication); or iterative reconstruction. COMPARISON: CT HEAD WITHOUT CONTRAST 08/02/2020 2:32 PM FINDINGS: Brain: The patient has had prior left craniotomy. There is a persistent small extra-axial collection deep to the craniotomy, with persistent dural calcification. This is stable in size and appearance. There is cavitary tissue loss/encephalomalacia noted in the left temporal lobe, minimally in the inferior left parietal lobe. This is also stable. There is mild ex vacuo enlargement of the left lateral ventricle, unchanged. There is no new hemorrhage, mass or shift. There is no evidence of a new cortical or major vascular territory infarct. Ventricles: Ventricular size is unchanged Bones/joints: The bony structures are unchanged Paranasal sinuses: There is no new sinus opacification Mastoid air cells: There is no new mastoid or middle ear opacification Orbits: Orbits are unchanged in appearance Soft tissues: Unremarkable. IMPRESSION: No new or acute findings when compared with the most recent examination from 08/02/2020. REPORT SIGNED IN OTHER VENDOR SYSTEM 08/13/2020 Reported By: Wendie Castillo MD CC: Transcribed Date/Time: 08/13/2020 (1946) Analytics Lead: Printed Date/Time: 08/13/2020 (1947) PAGE 1 Signed Report us Bucky Matta MD IMG CT ORDERABLES Final Resul t documented in this encounter Visit Diagnoses Not on filedocumented in this encounter Additional Health Concerns Infection Onset Date Last Indicated Resolved Time R/O COVID-19 Comment:Negative result 03/07/2022 03/07/2022 03/07/2022 9:37 EDT R/O COVID-19 01/28/2024 01/28/2024 01/29/2024 0:27 EST documented as of this encounter Care Teams Processing Manager Relationship Specialty Start Date End Date Romario Hairston MD [facility] [place] [address] PCP - General 07/06/20 documented as of this encounter
--- OUTSIDE RECORDS SUMMARY | 2024-12-03 15:58 | XMS_ITS | Encounter Summary ---
Author Organization [facility] Address [address] [place] [address] Care Team Providers Care Wick Tender Name Role Phone Romario Hairston MD Primary Care Provider +1- [phone] Reason for Visit * Reason Comments Follow-up cranioplasty Encounter Details Date Type Department Care Team (Late st Contact Info) Description 11/07/2020 10:30 EST Telemedicine [facility] Neurosurgery - [address] [address] Melany Pedro NP [address] [facility], [address] [place] [address] History of cranioplasty (Primary Dx) Social History Tobacco Use Types [...] documented in this encounter Progress Notes * Melany Pedro APRN - 11/07/2020 1030 EST Images from the original note were not included. Chief Complaint Patient presents with ??? Follow-up cranioplasty HPI: Ynes White is a 50 y.o. female who presents today for a phone visit to discuss her recent head CT. She is s/p cranioplasty with Dr. Piña on 07/12/2020. Spoke with Ynes Curtis's caregiver who reports that Ynes has been doing quite well. She is sleeping better and has no c/o headache, dizziness, or visual changes. He notes that she has continued to have a few episodes of shaking, but theyare following closely with neurology regarding this issue. He denies any questions/concerns today. ROS: - Constitutional: Denies fever, chills, unintentional weight loss, unusual fatigue Past Medical History: Diagnosis Date ??? Aphasia [...] ??? Cancer Maternal Grandmother 80 Social History Socioeconomic History ??? Marital status: Spouse name: Not on file ??? Number of children: Not on file ??? Years of education: Not on file ??? Highest education level: Not on file Occupational History ??? Not on file Social Needs ??? Financial resource strain: Not on file ??? Food insecurity Worry: Not on file Inability: Not on file ??? Transportation needs Medical: Not on file Non-medical: Not on file Tobacco Use ??? Smoking status: Former Smoker Packs/day: 0.25 Years: 15.00 Pack years: 3.75 ??? Smokeless tobacco: Never Used Substance and Sexual Activity ??? Alcohol use: Yes ??? Drug use: Not on file ??? Sexual activity: Not on file Lifestyle ??? Physical activity Days per week: Not on file Minutes per session: Not on file ??? Stress: Not on file Relationships ??? Social connections Talks on phone: Not on file Gets together: Not on file Attends denominational service: Not on file Active member of club or organization: Not on file Attends meetings of clubs or organizations: Not on file Relationship status: Not on file ??? Intimate partner violence Fear of current or ex partner: Not on file Emotionally abused: Not on file Physically abused: Not on file Forced sexual activity: Not on file Other Topics Concern ??? Not on file Social History Narrative ??? Not on file EXAM: Vitals were not taken for this visit as it is a phone visit. Awake, alert, conversant Oriented x4 Verbalizes appropriately, fluently Imaging: I personally reviewed the patient's head CT from 10/27/2020. It is largely unchanged from the previous scan, and shows continued retraction of the extra- axial fluid collection underneath the left convexity cranioplasty. Assessment/Plan H/o cranioplasty - Doing well without any complaints. CT scan is stable. Reviewed case with Dr. Piña, no further CTs indicated at this time. Ynes will f/u on a PRN basis and Ever knows to call with any concerns/questions. RTC/FU PRN The concept of ???Telemedicine?? has been described [...] in patient???s medical or mental health care. This visit was conducted by telephone. I spent a total of 5 minutes in discussion with the patient as described in the progress note. documented in this encounter Plan of Treatment Upcoming Encounters Date Type Department Care Team (Late st Contact Info) Description 03/04/2025 14:00 EDT Telemedicine [facility] Neurology Clinic [address] [place] [phone] Brayan Polk MD [address] [place] [address] [address] [place] [phone] 07/14/2025 14:30 EDT Office Visit [facility] Cancer Center Hematology & Oncology - [address] [phone] Evin Maria MD [address] [place] [address], [address] [place] [phone] documented as of this encounter Visit Diagnoses Diagnosis History of cranioplasty- Primary Other postprocedural status documented in this encounter Care Teams Wick Tender Relationship Specialty Start Date End Date Romario Hairston MD [address] [place] [id number] PCP - General 07/06/20 documented as of this encounter
--- OUTSIDE RECORDS SUMMARY | 2024-12-03 15:58 | XMS_ITS | Encounter Summary ---
Author Organization [facility] Address [address] [place] [address] Care Team Providers Care Kelp Gatherer Name Role Phone Romario Hairston MD Primary Care Provider +1- [phone] Reason for Visit * Reason Comments Follow-up Seizures Encounter Details Date Type Department Care Team (Late st Contact Info) Description 08/31/2020 9:30 EDT Office Visit [facility] Neurology Clinic [address] [place] [address] Brayan Polk MD 130 [facility] [address] [place] [address] Seizure (HCC-CMS) (Primary Dx); Cerebral venous sinus thrombosis Social History Tobacco Use Types Packs/Day [...] 11:52 EDT documented as of this encounter Last Filed Vital Signs Vital Sign Reading Time Taken Comments Blood Pressure 100/60 08/31/2020 0937 EDT Pulse - - Temperature - - Respiratory Rate - - Oxygen Saturation - - Inhaled Oxygen Concentration - - Weight - [...] Progress Notes * Brayan Polk MD - 08/31/2020 0930 EDT [facility] Neurology Clinic PATIENT NAME: Ynes White PATIENT : 1970 PCP: Romario Hairston DATE OF SERVICE: 08/31/2020 CHIEF COMPLAINT: ICH and symptomatic seizure HISTORY OF PRESENT ILLNESS Ynes White is a 50 y.o. female who returns in follow-up with her friend Ever. In short she hadsymptomatic focal onset seizure from ICH related to cerebral venous thrombus, with decompression and post-operative fluid collection. Levetiracetam was started but at my first evaluation I thought she was having severe emotional side effects with some behavioral events from that which were not seizures. I set a goal to cross-taper her onto zonisamide. Since last visit I talked to Ever and Ynes on the phone and it sounded most like she was having severe anxiety, so I spoke with her PCP will who was very helpful in trying to assist with her anxiety care. She has an upcoming appointment at Dr Wade luna's office to discuss anticoagulation resumption next week. Today she and Ever both feel she is doing much better, sleeping better, talking better, motor skills are improving. She's on zonisamide 200mg nightly. She's trying to keep busier at home, doing more work there. Overall she and J are bothvery happy with how she is doing. She will soon have a new patient visit with a psychiatrist who may help to be able to better manage her psychiatric medicines for anxiety. Summary: ICH related to cerebral venous thrombosis in January 2020, treated with surgical evacuation by Dr Piña, and subsequent cranioplasty, as well as likely symptomatic seizure in June for which she was briefly admitted to [facility], and placed on levetiracetam 1000mg BID which gave her worsening of anxiety causing several ED visits. Shaking episodes Ever demonstrates that both arms would [...] shaking during this, with large amplitude shaking. Evre also witnessed the seizure in June, which was very different than these events. That one involved right arm movements, head and eye version to the one side, then whole body shaking with clear unconsci ousness and post-ictal confusion. These diffuse tremors started only after the seizure in June, and initiation of levetiracetam. She also has been feeling much more irritability, and rage and more anxious recently. The shaking episodes seem to co-exist with feeling very anxious. PAST MEDICAL HISTORY Past Medical History: Diagnosis [...] Outpatient Medications Marked as Taking for the 08/31/20 encounter (Office Visit) with Brayan Polk MD Medication Sig ??? acetaminophen (TYLENOL) 500 mg tablet Take 2 Tabs by mouth every 6 hours. ??? aspirin chewable 81 mg tablet Take 81 mg by mouth daily. ??? diclofenac sodium 1 % gel APPLY 2 GRAMS TO THE AFFECTED JOINT BID ??? docusate sodium (COLACE) 100 mg capsule Take 1 Cap by mouth 2 times daily. ??? ketotifen (ZADITOR) 0.025 % (0.035 %) ophthalmic solution ??? melatonin 5 mg tablet Take 5 [...] Take 200 mg by mouth at bedtime. REVIEW OF SYSTEMS: 5-point ROS performed and was negative except as noted in HPI. PHYSICAL EXAMINATION BP 100/60 General appearance: alert, cooperative, very anxious Skin: No rashes or lesions HEENT: NC/AT, no oral lesions Extremities: no peripheral edema NEUROLOGIC EXAM Alert, engaging in conversation, mild intermittent word substitutions, otherwise speech is fluent, good comprehension, follows commands easily, mild dysarthria. Much less distracted and frustrated today than in previous visits. Extraocular movements are intact, face symmetric, right homonymous hemianopsia most significant in the upper right quadrants bilaterally. No pronator drift. Deep tendon reflexes mildly brisker in the right than the left. Rises from chair easily. Stable independent gait. NEUROIMAGING STUDIES: Personally reviewed Noncontrast head CT [...] head CT 08/13/2020: No changes from prior ASSESSMENT: Ynes White is a 50 y.o. female who unfortunately suffered a left intracerebral hemorrhage secondary to cerebral venous thrombus in January 2020, subsequently treated with evacuation and eventual cranioplasty. She represented in June 2020 with description of clear left hemispheric focal onset seizure, possibly related to subdural fluid collection. In addition she has had more diffuse whole body shaking events with preservation of ability to communicate, triggered by anxiety, and possibly worsened by side effects of levetiracetam so we switched her to zonisamide. She is doing much better currently, making improvements cognitively and with speech, sleeping better, and overall feeling less anxious, though is quite high discussed that she also have help from a psychiatrist to manage her medications because it seems like her anxiety has gotten significantly worse recently, likely in combination from her baseline state with the addition of side effects from levetiracetam. Thankfully she is doing very well on zonisamide monotherapy. 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, and subsequent symptomatic focal onset seizure -Continue zonisamide 200 mg once daily, they have been giving it at night which is fine. This can be given in combination with any of her other evening medicines. -I again encouraged her and Ever to call me when they are confronting a difficult moment and are considering a visit to the emergency department and we can talk about whether that is necessary on the phone or not. -Follow-up in about 2 months which was a timeframe they are comfortable with. Brayan Polk MD documented in this encounter Plan of Treatment Upcoming Encounters Date Type Department Care Team (Late st Contact Info) Description 03/04/2025 14:00 EDT Telemedicine [facility] Neurology Clinic [address] [place], [place] [phone] Brayan Polk MD 130 [facility] [address] [place] [address] 07/14/2025 14:30 EDT Office Visit [facility] Cancer Center Hematology & Oncology - [address] [phone] Evin Maria MD [address] [place] [address], [facility], [address] [place] [phone] documented as of this encounter Visit Diagnoses Diagnosis Seizure (HCC-CMS)- Primary Other convulsions Cerebral venous 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 Therapy completed 07/18/2020 08/31/2020 methocarbamoL (ROBAXIN) 500 mg tablet Take 2 Tabs by mouth every 8 hours as needed for Muscle Spasms. Error 07/14/2020 08/31/2020 documented as of this encounter Historical Medications * This list may reflect changes made after this encounter. Prazosin (MINIPRESS) 1 mg capsule Take 1 Capsule by mouth at bedtime. 08/09/2020 aspirin chewable 81 mg tablet Take 1 Tablet by mouth daily. 09/11/2023 diclofenac sodium 1 % gel APPLY 2 GRAMS TO THE AFFECTED JOINT BID 08/10/2020 03/28/2022 ketotifen (ZADITOR) 0.025 % (0.035 %) ophthalmic solution Not filling 08/09/2020 03/28/2022 propRANolol (INDERAL) 10 mg tablet TK 1 T PO Q 8 H OES PRN 08/09/2020 01/03/2023 added in this encounter Care Teams Kelp Gatherer Relationship Specialty Start Date End Date Romario Hairston MD [address] [place] [address] PCP - General 07/06/20 documented as of this encounter
--- OUTSIDE RECORDS SUMMARY | 2024-12-03 15:58 | XMS_ITS | Encounter Summary ---
Author Organization [facility] Address [address] [place] [address] Care Team Providers Care Collar Band Creaser Name Role Phone Romario Hairston MD Primary Care Provider +1- [phone] Reason for Visit * Reason Onset Date Comments Medication Questions 09/20/2020 Encounter Details Date Type Department Care Team (Late st Contact Info) Description 09/20/2020 Telephone [facility] - [address] [phone] Claus Piña MD [address] [place] [address], [address] [place] [address] Medication Questions Social History Tobacco [...] Telephone Encounter - Tayler Vallejo RN - 09/20/2020 1210 EDT See other encounter. * Telephone Encounter - Toni Luna - 09/20/2020 0912 EDT Patient's EC calling to speak to nurse about a few of her medications. He wants to know if it's ok for her to take Wellbutrin and has questions about blood thinners. Please call back to discuss. documented in this encounter Plan of Treatment Upcoming Encounters Date Type Department Care Team (Late st Contact Info) Description 03/04/2025 14:00 EDT Telemedicine [facility] Neurology Clinic [address] [place] [address] Brayan oPlk MD [address] [place] [address] 07/14/2025 14:30 EDT Office Visit [facility] Cancer Center Hematology & Oncology - [address] [address] Evin Maria MD 111 [facility], [place] [facility], [address] [place] [address] documented as of this encounter Visit Diagnoses Not on filedocumented in this encounter Care Teams Collar Band Creaser Relationship Specialty Start Date End Date Romario Hairston MD [address], [address] [phone] PCP - General 07/06/20 documented as of this encounter
--- OUTSIDE RECORDS SUMMARY | 2024-12-03 15:58 | XMS_ITS | Encounter Summary ---
Author Organization [facility] Address [address] [place] [address] Care Team Providers Care Hook Puller Name Role Phone Romario Hairston MD Primary Care Provider +1- [phone] Reason for Visit * Reason Onset Date Comments Medication Management 09/20/2020 Encounter Details Date Type Department Care Team (Late st Contact Info) Description 09/20/2020 Telephone [facility] Cancer Center Hematology & Oncology - [address] [address] Evin Maria MD [address] [place] [address], [address] [place] [address] Medication Management Social History Tobacco Use Types [...] mouth 2 times daily. 60 Tab 6 09/20/2020 04/17/2021 documented in this encounter Miscellaneous Notes * Telephone Encounter - Yves [place]edo - 09/20/2020 1036 EDT Patient's EC is calling to ask if patient should be taking blood thinner. Please advise. documented in this encounter Plan of Treatment Upcoming Encounters Date Type Department Care Team (Late st Contact Info) Description 03/04/2025 14:00 EDT Telemedicine [facility] Neurology Clinic [address] [place] [address] Brayan Polk MD 130 [facility] [address] [place] [address] 07/14/2025 14:30 EDT Office Visit [facility] Cancer Center Hematology & Oncology - [facility] [address] [place], [place] [phone] Evin Maria MD 111 [facility] [place], [facility], [address] [place] [phone] documented as of this encounter Visit Diagnoses Not on filedocumented in this encounter Care Teams Hook Puller Relationship Specialty Start Date End Date Romario Hairston MD [address], [address] [id number] PCP - General 07/06/20 documented as of this encounter
--- OUTSIDE RECORDS SUMMARY | 2024-12-03 15:58 | XMS_ITS | Encounter Summary ---
Author Organization [facility] Address [address] [place] [address] Care Team Providers Care Field Service Manager Name Role Phone Romario Hairston MD Primary Care Provider +1- [phone] Reason for Visit * Reason Onset Date Comments New/Evolving Symptoms 11/14/2020 Encounter Details Date Type Department Care Team (Late st Contact Info) Description 11/14/2020 Telephone [facility] Neurology Clinic [address] [place] [address] Brayan Polk MD 130 [facility] [address] [place] [address] New/Evolving Symptoms Social History Tobacco [...] Telephone Encounter - Vashti Grover RN - 11/14/2020 1645 EST Ever reports that Ynes was feeling out of it for a little while and was concerned for herself. This last a little while but has since dissipated with a dose of antianxiety medication. Instructed him to bring Ynes to the ER if something like this persisted especially if she could not communicate well of was acting confused. Encouraged Ever to keep calling as needed in order to avoid ER visits. Ever understands that Dr. Polk is on vacation this week. * Telephone Encounter - Rita Del Castillo - 11/14/2020 1637 EST Rec'd a voicemail from Ever that pt is disoriented and he would like to discuss this documented in this encounter Plan of Treatment Upcoming Encounters Date Type Department Care Team (Late st Contact Info) Description 03/04/2025 14:00 EDT Telemedicine [facility] Neurology Clinic [address] [place] [address] Brayan Polk MD 130 [facility] [address] [place] [address] 07/14/2025 14:30 EDT Office Visit [facility] Hematology & Oncology - [address] [phone] Evin Maria MD [address] [place] [address], [address] [place] [address] documented as of this encounter Visit Diagnoses Not on filedocumented in this encounter Care Teams Field Service Manager Relationship Specialty Start Date End Date Romario Hairston MD [address], [address] [id number] PCP - General 07/06/20 documented as of this encounter
--- OUTSIDE RECORDS SUMMARY | 2024-12-03 15:58 | XMS_ITS | Encounter Summary ---
Author Organization [facility] Address [address] [place] [address] Care Team Providers Care Space Engineer Name Role Phone Romario Hairston MD Primary Care Provider +1- [phone] Reason for Visit * Reason Comments Post-OP Follow Up cranioplasty Encounter Details Date Type Department Care Team (Late st Contact Info) Description 09/14/2020 13:50 EDT Post-op Visit [facility] Neurosurgery - [address] [address] Melany Pedro NP 111 [facility], [address] 5 [place] [phone] History of cranioplasty (Primary Dx) Social History [...] 13:39 EDT documented as of this encounter Last Filed Vital Signs Vital Sign Reading Time Taken Comments Blood Pressure - - Pulse - - Temperature - - Respiratory Rate - - Oxygen Saturation - - Inhaled Oxygen Concentration - - Weight 79.8 kg (176 lb) 09/14/2020 1345 EDT Height 162.6 cm (5' 4) 09/14/2020 1345 EDT Body Mass Index 30.21 09/14/2020 1345 EDT documented in this encounter Functional Status [...] Progress Notes * Melany Pedro APRN - 09/14/2020 1350 EDT Chief Complaint Patient presents with ??? Post-OP Follow Up cranioplasty HPI: Ynes White is a 50 y.o. female who presents today for a post-op visit. She is s/p cranioplasty with Dr. Piña on 07/12/2020. She reports that she is doing very well and has noticed an improvement in her speech and her sleeping. She is accompanied today by Ever, a friend. He reports that he feels she is doing well. She denies pain in her head around the incision/bone flap. Ynes and Ever report 2-3 occasions where Ynes's right hand has gone numb and there has been associated speech difficulties. These episodes have resolved spontaneously each time after 1-2 minutesand she has not had lingering symptoms. Ever has called Ynes's neurologist and he is aware. Ever and Ynes have two questions: 1. When can Ynes resume anticoagulation? 2. Is there any reason from a neurosurgical perspective why Ynes could not resume Wellbutrin? ROS: - Constitutional: Denies fever, chills, unintentional weight loss, unusual fatigue - HEENT: Denies changes in vision/hearing - MSK: negative for difficulty with gait - Neuro: Denies dizziness Past Medical History: Diagnosis Date ??? Aphasia [...] Socioeconomic History ??? Marital status: Spouse name: None ??? Number of children: None ??? Years of education: None ??? Highest education level: None Occupational History ??? None Social Needs ??? Financial resource strain: None ??? Food insecurity Worry: None Inability: None ??? Transportation needs Medical: None Non-medical: None Tobacco Use ??? Smoking status: Former Smoker Packs/day: 0.25 Years: 15.00 Pack years: 3.75 ??? Smokeless tobacco: Never Used Substance and Sexual Activity ??? Alcohol use: Yes ??? Drug use: None ??? Sexual activity: None Lifestyle ??? Physical activity Days per week: None Minutes per session: None ??? Stress: None Relationships ??? Social connections Talks on phone: None Gets together: None Attends methodist service: None Active member of club or organization: None Attends meetings of clubs or organizations: None Relationship status: None ??? Intimate partner violence Fear of current or ex partner: None Emotionally abused: None Physically abused: None Forced sexual activity: None Other Topics Concern ??? None Social History Narrative ??? None EXAM: Patient Vitals for the past 24 hrs: Height Weight 09/14/20 1345 162.6 cm (64) 79.8 kg (176 lb) Awake, alert, conversant Oriented x4 Follows commands x4 Verbalizes appropriately, some word substitution Able to rise from a seated position without difficulty. Gait is not antalgic. Skin: Incision on scalp appears well-healed, not tender to palpation. No erythema, edema, or drainage noted. Imaging: I personally reviewed the patient's head CT from 08/13/2020. It shows a persistent small extra-axialcollection deep to the craniotomy that is stable compared to the last CT scan from 08/02/2020. Assessment/Plan History of cranioplasty - Recovering well. Unsure of etiology of episodes of hand numbness/speech disruption, will defer to neurology. Discussed case with Dr. Piña who stated that patient is clearedfrom a NS perspective to resume anticoagulation. Per Dr. Piña, there is no contraindication from aNS perspective to resume Wellbutrin. Will defer to PCP/neurology for prescription of these medications. Will obtain a f/u CT head in 6-8 weeks at [facility]. Encouraged to call the clinic with any questions/concerns. F/u after CT scan. RTC/FU F/u after repeat CT in 6-8 weeks. 20 minutes of this 25 minute face to face visit were spent in patient counseling/coordination of care. documented in this encounter Plan of Treatment Upcoming Encounters Date Type Department Care Team (Late st Contact Info) Description 03/04/2025 14:00 EDT Telemedicine [facility] Neurology [facility] [address] [place] [address] Brayan Polk MD 130 [facility] [address] [place] [address] 07/14/2025 14:30 EDT Office Visit [facility] Cancer [facility] Hematology & Oncology - [facility] [address] [place], [place] [address] Evin Maria MD 111 [facility], [address] [place] [phone] documented as of this encounter Visit Diagnoses Diagnosis History of cranioplasty- Primary Other postprocedural status documented in this encounter Care Teams Space Engineer Relationship Specialty Start Date End Date Romario Hairston MD [address], [address] [phone] PCP - General 07/06/20 documented as of this encounter
--- OUTSIDE RECORDS SUMMARY | 2024-12-03 15:58 | XMS_ITS | Encounter Summary ---
Author Organization [facility] Address [address] [place] [address] Care Team Providers Care Drafter Structural Name Role Phone Romario Hairston MD Primary Care Provider +1- [phone] Reason for Visit * Reason Onset Date Comments Medication Questions 09/20/2020 Encounter Details Date Type Department Care Team (Late st Contact Info) Description 09/20/2020 Telephone [facility] - [address] [phone] Claus Piña MD [address] [place] [address], [address] [place] [address] Medication Questions Social History Tobacco [...] Date of Assessment Author Yes 07/16/2020 18:38 EDLisa Rose RN * Because of a physical, mental, [...] Encounter - Tayler Vallejo RN - 09/20/2020 1329 EDT Discussed with Melany Pedro APRN who advised that the patient can resume her blood thinners andWellbutrin. Spoke with Ever who was notified of the recommendations. * Telephone Encounter - Magalie Yip - 09/20/2020 1157 EDT Ever is calling stating Ynes is scheduled for a CT scan on 10/27 at [facility]. He wants to know if it is okay for Ynes to start her blood thinner and Wellbutrin before the CT scan. documented in this encounter Plan of Treatment Upcoming Encounters Date Type Department Care Team (Late st Contact Info) Description 03/04/2025 14:00 EDT Telemedicine [facility] Neurology Clinic [address] [place], [place] [phone] Brayan Polk MD 130 [facility] [address] [place] [address] 07/14/2025 14:30 EDT Office Visit [facility] Cancer Center Hematology & Oncology - [address] [phone] Evin Maria MD 111 [facility], [address] [place] [address] documented as of this encounter Visit Diagnoses Not on filedocumented in this encounter Care Teams Drafter Structural Relationship Specialty Start Date End Date Romario Hairston MD [address], [address] [place] [id number] PCP - General 07/06/20 documented as of this encounter
--- OUTSIDE RECORDS SUMMARY | 2024-12-03 15:58 | XMS_ITS | Encounter Summary ---
Author Organization [facility] Address [address] [place] [address] Care Team Providers Care Dirt Contractor Name Role Phone Romario Hairston MD Primary Care Provider +1- [phone] Reason for Visit * Reason Onset Date Comments Results 10/28/2020 CT scan done at [facility] yesterday Encounter Details Date Type Department Care Team (Late st Contact Info) Description 10/28/2020 Telephone [facility] Neurosurgery - [address] [address] Claus Piña MD [address] [place] [address], [address] [place] [phone] Results (CT scan done at [facility] yesterday) Social History Tobacco Use Types Packs/Day Years [...] Telephone Encounter - Tayler Vallejo RN - 10/28/2020 1522 EST Spoke with Mary who was advised that we are still unable to have images pushed to our system so we will contact [facility] and ask for a disc to be mailed to us. Once we receive the disc we will review the imaging and contact them with the results. Mary verbalized understanding and denied any other questions. * Telephone Encounter - Terry Castro - 10/28/2020 1331 EST Pt spouse calls for results from CT scan done yesterday at [facility]. Please call mary or pt to discuss the findings. documented in this encounter Plan of Treatment Upcoming Encounters Date Type Department Care Team (Late st Contact Info) Description 03/04/2025 14:00 EDT Telemedicine [facility] Neurology Clinic [address] [place] [address] Brayan Polk MD [address] [place] [address]-[address] [place] [phone] 07/14/2025 14:30 EDT Office Visit [facility] Cancer Center Hematology & Oncology - [address] [phone] Evin Maria MD 111 [facility], [address] [place] [address] documented as of this encounter Visit Diagnoses Not on filedocumented in this encounter Care Teams Dirt Contractor Relationship Specialty Start Date End Date Romario Hairston MD [address], [address] [phone] PCP - General 07/06/20 documented as of this encounter
--- OUTSIDE RECORDS SUMMARY | 2024-12-03 15:58 | XMS_ITS | Encounter Summary ---
Author Organization [facility] Address [address] [place] [address] Care Team Providers Care Serology Teacher Name Role Phone Romario Hairston MD Primary Care Provider +1- [phone] Reason for Visit * Reason Onset Date Comments Follow-up 09/15/2020 Encounter Details Date Type Department Care Team (Late st Contact Info) Description 09/15/2020 Telephone [facility] - [address] [address] Melany Pedro NP 111 [facility], [address] 5 [place] [address] Follow-up Social History Tobacco Use Types Packs/Day Years [...] encounter Miscellaneous Notes * Telephone Encounter - Melany Pedro APRN - 09/16/2020 0931 EDT TC back to Ever to inform him that Dr. Piña has given the okay for Ynes to resume anticoagulation. She will need another CT scan in 6-8 weeks, order is in. Informed him he should speak with neurology about restarting anticoagulation. He again asked if Ynes could restart Wellbutrin. Informed him that there was no contraindicationfrom our perspective. He asked to have that script called in. Informed him that he would need to speak with her PCP for this. * Telephone Encounter - Magalie Yip - 09/15/2020 1540 EDT Ever is calling wanting to know when Ynes needs the CT scan if she does indeed need one and if she is cleared to take Wellbutrin. documented in this encounter Plan of Treatment Upcoming Encounters Date Type Department Care Team (Late st Contact Info) Description 03/04/2025 14:00 EDT Telemedicine [facility] Neurology Clinic [address] [place], [place] [address] Brayan Polk MD 130 [facility] [address] [place] [address] 07/14/2025 14:30 EDT Office Visit [facility] Cancer Center Hematology & Oncology - [address] [address] Evin Maria MD [address] [place] [address], [facility], [address] [place] [phone] documented as of this encounter Visit Diagnoses Not on filedocumented in this encounter Care Teams Serology Teacher Relationship Specialty Start Date End Date Romario Hairston MD [address], [address] [place] [phone] PCP - General 07/06/20 documented as of this encounter
--- OUTSIDE RECORDS SUMMARY | 2024-12-03 15:58 | XMS_ITS | Encounter Summary ---
Author Organization [facility] Address [address] [place] [address] Care Team Providers Care Car Hop Name Role Phone Romario Hairston MD Primary Care Provider +1- [phone] Reason for Visit * Reason Onset Date Comments Appointment Related 08/23/2020 Encounter Details Date Type Department Care Team (Late st Contact Info) Description 08/23/2020 Telephone [facility] - [address] [address] Melany Pedro NP [address] [place] [address], [address] [place] [address] Appointment Related Social History Tobacco [...] encounter Miscellaneous Notes * Telephone Encounter - Magalie Yip - 08/23/2020 1351 EDT Images from the original note were not included. Spoke to Ever and advised him that Dr. Polk reached out to Dr. Piña regarding seeing Ynes. Dr. Piña stated that Melany Pedro NP could see Ynes. The following appointment was scheduled. documented in this encounter Plan of Treatment Upcoming Encounters Date Type Department Care Team (Late st Contact Info) Description 03/04/2025 14:00 EDT Telemedicine [facility] Neurology Clinic [address] [place] [address] Brayan Polk MD 130 [facility] [address] [place] [phone] 07/14/2025 14:30 EDT Office Visit [facility] Hematology & Oncology - [facility] [address] [place], [place] [address] Evin Maria MD 111 [facility], [address] [place] [phone] documented as of this encounter Visit Diagnoses Not on filedocumented in this encounter Care Teams Car Hop Relationship Specialty Start Date End Date Romario Hairston MD [address], [address] [address] PCP - General 07/06/20 documented as of this encounter
--- OUTSIDE RECORDS SUMMARY | 2024-12-03 15:58 | XMS_ITS | Encounter Summary ---
Author Organization [facility] Address [address] [place] [address] Care Team Providers Care Professor Of Counseling Name Role Phone Romario Hairston MD Primary Care Provider [phone]- [phone] Reason for Visit * Reason Comments Eye Problem * Consult, Test and Treat (Routine/Next Available) - Closed Specialty Diagnoses / Procedures Referred By Mitch pruett Referred To Contact Ophthalmology Diagnoses Homonymous bilateral field defects, right side Romario Hairston MD [address] [place] [id number] Phone: tel: fax: [address] [address] Phone: tel: fax: Referral ID Status Reason Start Date Expiration Date Visits Re quested Visits Authorized [id number] Closed 1 1 Encounter Details Date Type Department Care Team (Late st Contact Info) Description 10/13/2020 9:30 EST Office Visit [facility] Ophthalmology [address] [address] Surya Tobin MD [address] [place] [address], [facility] [address] [place] [address] Social History Tobacco Use Types Packs/Day Years [...] documented in this encounter Progress Notes * Martha Bland MA - 10/13/2020 0930 EST Due to computer system disruption, additional clinical information for this visit has been scanned. Data transcribed in this note reflects data taken by a provider or wind turbine blade repair technician on the date of service. For patients, please refer to guidance in [employer] on how to locate information. Generally this information will appear as a scanned documents saved in My Documents activity. 10/31/2020 9:12 documented in this encounter Consult Notes * Surya Tobin MD - 10/13/[address] [facility] NEURO-OPHTHALMOLOGY CONSULTATION - 10/13/2020 Ms White seen for neuro-ophthalmic evaluation because of a history of stroke and homonomous visual field loss. This is 50 year-old woman referred because of the history of a large stroke involving her left hemisphere, occurred in January 2020. The patient was globally aphasic, paretic, and lost vision as a consequence of the same and ultimately required a decompressive craniotomy to avoid worsening of her situation. The patient has had ongoing rehabilitation. At this point is ambulating, has function in her right hemibody. She continues to have some difficulties with speech and language, and reports that at present she is having a lot of difficulty reading and even writing. She has had evaluations with her local neurologist, Dr Polk, as well as eye care provider and it was recommended that she see me to determine if there is anything else that canbe offered. The patient has not driven since her stroke. She has some positive visual phenomena including occasionally seeing a cat where there is not a cat, and having some flashes or cano in the periphery of her vision. Typically, this is apparent in the area of her visual field where she has lost vision. The patient does report some difficulty adjusting her vision from distance to near and this has provided some concern to her, particularly concern that she might lose vision. This seems more apparent in her right than her left eye and of note the patient at baseline is right handed and likely right eye dominant. The ocular history is significant for refractive error. The medical history includes stroke as noted above. She has had some anxiety and depression as well. Her surgical history is notable for a decompressive craniotomy where the bone flap has been successfully replaced. Medications were reviewed as documented in the electronic health record include aspirin, Wellbutrin, Eliquis, senna, melatonin, quetiapine. The patient has no known medication allergies. The family history is significant for no known neurologic or ophthalmologic disease. The social history finds the patient does not smoke, drink, or use recreational drugs and at present she is not driving and has no plans to return to this at present and is willing to comply. The neuro-ophthalmic examination found the patient to be communicative and cooperative for testing.Visual acuities with correction were 20/30+ in the right eye and 20/40+ in the left eye with refractive refinement she is 20/25- in the right and 20/30 in the left, Chase 1 and Chase 2 on near imani each eye individually. Color vision (AO PIP) showed 9.5/14 correct pseudoisochromatic plates in each eye. Amsler grid testing showed no metamorphopsia, the pupils were equal in size and showed normal response to light and near. 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 Lids showed 1 to 2 mm of ptosis bilaterally with no lid lag or twitch. Examination of extraocular m otility showed no strabismus. Ductions were full. There was choppy pursuit and normal saccades but motor impersistence, particularly to the right when compared to the left. Applanation tonometry at 1045 hours was 12 mmHg in the right eye, 12 mmHg in the left eye. Slit lamp examination revealed blepharitis, early breakup of the tear film with otherwise normal anterior segments. Goldmann visual fam were performed with fairly reliable results and there is a dense superior right quadrantic defect that extends below the vertical to all isopters tested greater to the I4e than any of the others and more suggestive of a complete hemianopsia rather than a quadrantic defect to the largest test object, the V43. The field extends at least 15 degrees below the horizontal. There does appear to be a small area of intact temporal crescent superiorly in each eye, but only to the V4e and not detected with the more sensitive test objects. Dilated stereoscopic (indirect) funduscopy revealed the nervesto be pink, healthy and flat. Cup-to-disc ratio 0.5 in each eye. The vessels and macula were unremarkable. Spectral domain OCT nerve fiber layer analysis showed no clear thinning or edema of discs or maculawith average nerve fiber layer thickness of 86 microns on the right and 85 microns on the left. There may be a small area of sectoral thinning of the ganglion cell layer on the left, although overallwithin normal limits and symmetric ganglion cell layer thickness of 79 microns on the right and 78 m icrons in the left. FORMULATION: This is a 50-year-old woman who suffered a stroke in January 2020. The patient has substantial residual deficits, but is ambulatory and communicates quite well. 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 I agree that the patient should not drive and in all likelihood will not ever be eligible based on not only her field defects, but her cognitive difficulties; however, I would be happy to retest the patient at any point if she thinks things had improved, although at this juncture, I would not expect a dramatic improvement and I explained the same to the patient today. I think what the patient may be experiencing to some degree is difficulties related to her presbyopia and she clearly states that when working at near and then trying to adjust her vision to distance, there is a greater degree of blurring and lag in adjusting. At present, it does not look like the patient is wearing progressive lenses, even if she were I would advise against these as they can be very difficult use and adjust to in general and it would be far more difficult at this juncture, given her other difficulties. I do, however, think the patient might benefit from bifocals to provide her some potential relief in this regard. We also discussed the potential of considering dedicated readers for her near work if bifocals were not providing adequate clarity. 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 I have not scheduled a followup neuro-ophthalmic examination, but would be happy to see the patient back at any point that I can be of further assistance. Please do not hesitate to contact me with any further questions or concerns. Surya Tobin MD Diplomate, the [place] [employer] & Neurology behavioral health consultant Department of Ophthalmology NEURO-OPHTHALMOLOGY cc: Romario Hairston MD, [facility] [facility], [address], [place] [address] Brayan Polk MD, [facility] - House Staff Mail, [address] [place] [address] Claus Piña MD, [facility] - Neurosurgery, [address] [place] [id number] documented in this encounter Plan of Treatment Upcoming Encounters Date Type Department Care Team (Late st Contact Info) Description 03/04/2025 14:00 EDT Telemedicine [facility] Neurology Clinic [address] [place], [place] [phone] Brayan Polk MD [address] [facility] [address] [place] [phone] 07/14/2025 14:30 EDT Office Visit [facility] Cancer Center Hematology & Oncology - [address] [phone] Evin Maria MD [address] [place] [address], [facility], [address] [place] [address] Pending Results Name Type Priority Associated Diagnoses Date /Time GOLDMANN PERIMETRY - OU - BOTH EYES Ophthalmology Routine Cerebral venous sinus thrombosis Nontraumatic hemorrhage of left cerebral hemisphere (HCC-CMS) Homonymous bilateral field defects 11/14/2020 14:21 EST OCT, OPTIC NERVE - OU - BOTH EYES Ophthalmology Routine Cerebral venous sinus thrombosis Nontraumatic hemorrhage of left cerebral hemisphere (HCC-CMS) Homonymous bilateral field defects 11/14/2020 14:22 EST documented as of this encounter Procedures Procedure Name Priority Date/Time Associated Diagnosis Comments OCT, OPTIC NERVE - OU - BOTH EYES Routine 11/14/2020 14:22 EST Cerebral venous sinus thrombosis Nontraumatic hemorrhage of left cerebral hemisphere (HCC-CMS) Homonymous bilateral field defects GOLDMANN PERIMETRY - OU - BOTH EYES Routine 11/14/2020 14:21 EST Cerebral venous sinus thrombosis Nontraumatic hemorrhage of left cerebral hemisphere (HCC-CMS) Homonymous bilateral field defects documented in this encounter Visit Diagnoses Diagnosis Homonymous bilateral field defects- Primary Homonymous bilateral field defects in visual field 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
--- OUTSIDE RECORDS SUMMARY | 2024-12-03 15:58 | XMS_ITS | Encounter Summary ---
Author Organization [facility] Address [address] [place] [address] Care Team Providers Care Jewel Corner Brushing Machine Operator Name Role Phone Romario Hairston MD Primary Care Provider [phone]- [phone] Reason for Visit * Reason Comments Telemedicine Phone Call Encounter Details Date Type Department Care Team (Late st Contact Info) Description 01/11/2021 15:30 EST Telemedicine [facility] Cancer Center Hematology & Oncology - [address] [address] Evin Maria MD [address] [place] [address], [address] [place] [address] Cerebral venous sinus thrombosis (Primary Dx); History of pulmonary embolism Social History Tobacco Use Types Packs/Day Years [...] Progress Notes * Evin Maria MD - 01/11/2021 1530 EST Thrombosis & Hemostasis Program (THP) Follow Up Visit Date of Service: 01/11/2021 Problem List: Patient Active Problem List Diagnosis Date Noted ??? Primary hypercoagulable state ([facility]) 03/23/2020 Thrombosis Events A. 11/17/2019: Right greater saphenous thrombophlebitis (not treated) B. 02/14/2020: Left cerebral sinus thrombosis extending to IJ. Course complicated by ICH requiring craniotomy. I. 02/16/2020: Segmental PE and bilateral acute upper extremity DVTs and right lower extremity superficial thrombophlebitis. II. Treated when able with heparin -> enoxaparin. Risk Factors A. Obesity (BMI ~30kg/m2) B. Protein C level low in acute setting. FVL normal. No evidence of PNH. C. No evidence of a lupus anticoagulant. D. CT Chest, Abdomen did not reveal any malignancy. CBC did not reveal any hematologic issue. Treatment and prevention A. Will need group home anticoagulation - agent TBD ??? Aphasia ??? Seizure ([facility]) 07/16/2020 ??? History of cranial surgery 07/12/2020 ??? Brain herniation ([facility]) 02/17/2020 ??? Cerebral edema ([facility]) 02/17/2020 ??? 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 Cerebral venous thrombosis 02/14/2020 ??? Encounter for insertion or removal of intrauterine contraceptive device 02/12/2020 ??? Nicotine dependence, unspecified, uncomplicated 02/12/2020 ??? Perimenopausal 02/12/2020 ??? Post concussion syndrome 02/12/2020 ??? Tobacco abuse 12/02/2012 ??? Chronic low back pain 10/13/2012 ??? Back pain 09/25/2012 ??? Left-sided nontraumatic intracerebral hemorrhage ([facility]) 03/02/2020 Status post decompressive hemicraniectomy No chief complaint on file. HPI: From a thrombosis standpoint, Ms. White is doing well. She is on with her carer Ever. Her speech is much more fluent than when I last spoke with her 6 months ago and she is able to communicatecomplex thoughts relatively easily. She is not having any bleeding, and no evidence of any recurrent thrombosis - either in her brain or a PE. She has been distressed over the past 4 days, and it is difficult to sort out whether this is anxiety, or a post-ictal state from seizures. She has spoken with her neurologist and will be speaking with psychiatry/psychology tomorrow. She is much relieved when we discuss her progress. ROS: (Intake form with complete ROS reviewed [...] and zonisamide Allergies: Patient is allergic to citalopram; duloxetine; levetiracetam; pregabalin; and zolpidem. Physical Exam: There were no vitals filed for this visit.Estimated body mass index is 30.21 kg/m?? as calculated from the following: Height as of 09/14/20: 162.6 cm (64). Weight as of 09/14/20: 79.8 kg (176 lb). Time on Telephone: 20 minutes. This visit was conducted by telephone (audio only). The visit was not the result of a visit in the past 7 days. The telephone visit did not result in an urgent in-person visit the same day or the next available visit. Evin Maria MD 01/11/2021 15:31 Labs: Basic Metabolic Panel Lab Results Component Value Date NA 139 12/07/2020 K 4.1 12/07/2020 CL 106 12/07/2020 CO2 20 (L) 12/07/2020 BUN 6 (L) 12/07/2020 CREATININE 0.93 12/07/2020 CALCGFR >60 12/07/2020 CAION 1.13 02/16/2020 CALCIUM 7.5 (L) 03/18/2020 CALCCA 8.6 03/18/2020 MG 1.60 (L) 12/07/2020 PHOS 4.6 (H) 03/07/2020 Gastrointestinal Lab Results Component Value Date ALKPHOS 123 03/18/2020 AST 40 03/18/2020 ALT 68 (H) 03/18/2020 CONJBILI 0.0 05/07/2001 UNCONJBILI 0.3 05/07/2001 TBIL <0.5 03/18/2020 TP 5.0 (L) 03/18/2020 LABALBU 2.6 (L) 03/18/2020 LIPASE 69 03/18/2020 Complete Blood Count Lab Results Component Value Date ABO AB 07/12/2020 WBC 5.40 07/17/2020 RBC 4.01 12/07/2020 HGB 12.9 12/07/2020 HCT 31.2 (L) 07/17/2020 MCV 94.5 12/07/2020 MCH 32.2 12/07/2020 MCHC 34.0 12/07/2020 PLT 247 12/07/2020 MPV 10.0 07/17/2020 RDWCV 13.2 07/17/2020 Differential (Absolute) Lab Results Component Value Date DIFFTYPE Auto 07/17/2020 NEUTROABS 2.70 07/17/2020 LYMPHSABS 2.06 07/17/2020 MONOSABS 0.38 07/17/2020 EOSABS 0.22 07/17/2020 BASOSABS 0.03 05/07/2001 Anemia No results found for: RETICCTPCT, IRON, UIBC, TIBC, TRANSFERRIN, FERRITIN, LEAD, FOLATE, [id number], HAPTOGLOBIN Thrombosis Panel Lab Results Component Value Date PROTIME 13.3 07/17/2020 INR 1.1 07/17/2020 PTT 35 07/17/2020 ANTITHROM 129 (H) 07/08/2020 FACTVIIIFA8 215 (H) 07/08/2020 PROTCCLOT 147 07/08/2020 PROTCCLOT 147 07/08/2020 PROTSCLOT 127 07/08/2020 DRVVT 40.1 (H) 07/08/2020 DRVVT 40.1 sec 07/08/2020 Imaging: NA Assessment: Ms. White is a 51 year-old female who had a devastating cerebral sinus thrombosis in January 2020 complicated by a PE when anticoagulation was held due to a PE. She is currently improving well functionally and we are able to anticoagulate her, initially with enoxaparin and now with apixaban. Whilenot ideal, the treatment course was necessitated due to her physical condition and restrictions dueto COVID-19 pandemic for both her safety and the safety of others. Given the unprovoked nature of the thrombosis, we plan on continuing anticoagulation with low-dose apixaban as tolerated. It is difficult to determine what is distressing her, whether this is psychiatric or some form of seizure. She is in contact with her neurologist and is seeing a psychiatrist tomorrow to help sort this out. Plan: 1. Anticoagulation for cerebral sinus thrombosis A. Continue apixaban 2.5mg PO BID. 2. Thrombosis Testing A. Only thrombophilia an elevated factor VIII. 3. Follow-up 6 months. Please contact my office with questions/concerns. Evin Maria M.D. 01/11/2021 15:31 cc: Romario Hairston documented in this encounter Plan of Treatment Upcoming Encounters Date Type Department Care Team (Late st Contact Info) Description 03/04/2025 14:[address] [facility] Neurology Clinic [address] [place], [place] [address] Brayan Polk MD 130 [facility] [address] [place] [phone] 07/14/2025 14:30 EDT Office Visit [facility] Cancer Center Hematology & Oncology - [address] [phone] Evin Maria MD 111 [facility], [address] [place] [address] documented as of this encounter Visit Diagnoses Diagnosis Cerebral venous sinus thrombosis- Primary Phlebitis and thrombophlebitis of intracranial venous sinuses History of pulmonary embolism Personal history of pulmonary embolism documented in this encounter Care Teams Jewel Corner Brushing Machine Operator Relationship Specialty Start Date End Date Romario Hairston MD [address], [address] [place] [id number] PCP - General 07/06/20 documented as of this encounter
--- OUTSIDE RECORDS SUMMARY | 2024-12-03 15:58 | XMS_ITS | Encounter Summary ---
Author Organization [facility] Address [address] [place] [address] Care Team Providers Care Travel Registered Nurse Nicu Name Role Phone Romario Hairston MD Primary Care Provider +1- [phone] Reason for Visit * Reason Onset Date Comments Hospital Discharge Follow Up 12/08/2020 Encounter Details Date Type Department Care Team (Late st Contact Info) Description 12/08/2020 Telephone [facility] [address] [place] [address] Brayan Polk MD 130 [facility] [address] [place] [address] Hospital Discharge Follow Up Social History Tobacco Use Types Packs/Day Years [...] Date of Assessment Author Yes 09/14/2020 13:44 EDLisa Rose RN documented as of this encounter Mental Status * Because of a physical, mental, or emotional condition, do you have serious difficulty concentrating, remembering, or making decisions? (5 years old or older) Answer Entry Date Author Yes 07/16/2020 18:38 Lisa Muro RN documented in this encounter Miscellaneous Notes * Telephone Encounter - Brayan Polk MD - 12/08/2020 1058 EST Noted, thanks. * Telephone Encounter - Rita Del Castillo - 12/08/2020 0956 EST Ever is calling to report that he brought Ynes to the [facility] lastnight for an Anxiety attack, ptwas released but they were instructed to call and let office know that her Magnesium levels were low. documented in this encounter Plan of Treatment Upcoming Encounters Date Type Department Care Team (Late st Contact Info) Description 03/04/2025 14:00 EDT Telemedicine [facility] [address] [place] [address] Brayan Polk MD [address] [place] [address] [place] [address] 07/14/2025 14:30 EDT Office Visit [facility] Cancer Center Hematology & Oncology - [facility] [address] [place], [place] [address] Evin Maria MD 111 [facility], [address] [place] [phone] documented as of this encounter Visit Diagnoses Not on filedocumented in this encounter Care Teams Travel Registered Nurse Nicu Relationship Specialty Start Date End Date Romario Hairston MD [address], [address] [id number] PCP - General 07/06/20 documented as of this encounter
--- OUTSIDE RECORDS SUMMARY | 2024-12-03 15:58 | XMS_ITS | Encounter Summary ---
Author Organization [facility] Address [address] [place] [address] Care Team Providers Care Real Estate Management Specialist Name Role Phone Romario Hairston MD Primary Care Provider +1- [phone] Encounter Details Date Type Department Care Team (Late st Contact Info) Description 12/07/2020 Results Only [facility] [phone] Damon Manuel MD [address] [place] [phone] Social History Tobacco Use Types Packs/Day [...] Contact Info) Description 03/04/2025 14:00 EDT Telemedicine [facility] Neurology Clinic [address] [place] [address] [phone] Brayan Polk MD [address] [place] [address]-[address] [place] [phone] 07/14/2025 14:30 EDT Office Visit [facility] Cancer [facility] Hematology & Oncology - [address] [phone] Evin Maria MD [address] [place] [address], Level 2 [place] [address] documented as of this encounter Procedures Procedure Name Priority Date/Time Associated Diagnosis Comments COMPLETE BLOOD COUNT WITH DIFFERENTIAL (AUTO) Routine 12/07/2020 21:47 EST MAGNESIUM Routine 12/07/2020 21:46 EST COMPREHENSIVE METABOLIC PANEL (CMP) Routine 12/07/2020 21:46 EST documented in this encounter Results * (ABNORMAL) COMPLETE BLOOD COUNT WITH DIFFERENTIAL (AUTO) (12/07/2020 21:47 EST) ABSOLUTE NEUTROPHIL COUN - [facility] 3.8 2.2 - 8.85 10e3/uL 12/07/2020 21:55 [facility] BASO # - [facility] 0.03 0.01 - 0.11 10e/uL 12/07/2020 21:55 [facility] BASO % - [facility] 0 0 - 2 % 12/07/2020 21:55 [facility] EOS # - [facility] 0.02(L) 0.03 - 0.61 10e3/ul 12/07/2020 21:55 [facility] EOS % - [facility] 0 0 - 5 % 12/07/2020 21:55 [facility] GRAN % - [facility] 49.1 40 - 80 % 12/07/2020 21:55 [facility] HEMATOCRIT - [facility] 37.9 34.9 - 44.4 % 12/07/2020 21:55 [facility] HEMOGLOBIN - [facility] 12.9 11.6 - 15.2 g/dl 12/07/2020 21:55 [facility] IG# - [facility] 0.03 0 - 0.7 10e3/uL 12/07/2020 21:55 [facility] IG% - [facility] 0.4 0 - 0.9 % 12/07/2020 21:55 [facility] LYMPH # - [facility] 3.5(H) 1.09 - 3.3 10e3/ul 12/07/2020 21:55 [facility] LYMPH% - [facility] 45.2(H) 20 - 40 % 12/07/2020 21:55 [facility] MEAN CORPUSCULAR HGB - [facility] 32.2 26.7 - 33.3 pg 12/07/2020 21:55 [facility] MEAN CORPUSCULAR HGB CONC - [facility] 34.0 32.1 - 35.9 g/dL 12/07/2020 21:55 [facility] MEAN CELL VOLUME - [facility] 94.5 81 - 98 fl 12/07/2020 21:55 [facility] MONO # - [facility] 0.4 0.1 - 0.8 10e3/uL 12/07/2020 21:55 [facility] MONO% - [facility] 4.6 0 - 12 % 12/07/2020 21:55 [facility] PLATELET COUNT 247 141 - 377 10e3/ul 12/07/2020 21:55 [facility] RED BLOOD COUNT - [facility] 4.01 3.86 - 5.04 10e3/ul 12/07/2020 21:55 [facility] RED CELL DISTRI WIDTH - [facility] 15.6 <14.7 % 12/07/2020 21:55 [facility] WHITE BLOOD COUNT - [facility] 7.8 4.0 - 12.4 10e3/ul 12/07/2020 21:55 [facility] 12/07/2020 21:4 7 EST 12/07/2020 21:47 EST Damon Manuel MD HEMATOLOGY & PF4 ORDERABLES Shannon l Result Performing Organization Address City/[facility]/ZIP Co de Phone Number [facility] [address] [place] [address] * (ABNORMAL) MAGNESIUM (12/07/2020 21:46 EST) Pathologist [facility] Magnesium 1.60(L) 1.7 - 2.8 mg/dL 12/07/2020 22:03 [facility] 12/07/2020 21:4 6 EST 12/07/2020 21:46 EST Damon Manuel MD CHEMISTRY & BLOOD GAS ORDERABLES Final Result Performing Organization Address [facility]/ZIP Co de Phone Number [facility] [address] [place] [address] * (ABNORMAL) COMPREHENSIVE METABOLIC PANEL (CMP) (12/07/2020 21:46 EST) Albumin % 4.2 3.4 - 4.9 g/dL 12/07/2020 22:03 [facility] ALKALINE PHOSPHATASE - [facility] 123 38 - 126 U/L 12/07/2020 22:03 [facility] BILIRUBIN TOTAL 0.5 0.2 - 1.3 mg/dL 12/07/2020 22:03 [facility] BUN - [facility] 6(L) 10 - 26 mg/dL 12/07/2020 22:03 [facility] CALCIUM - [facility] 9.4 8.5 - 10.5 mg/dL 12/07/2020 22:03 [facility] Chloride 106 96 - 110 mmol/L 12/07/2020 22:03 [facility] CO2 Total 20(L) 22 - 32 mEq/L 12/07/2020 22:03 [facility] CREATININE 0.93 0.52 - 1.04 mg/dL 12/07/2020 22:03 [facility] eGFR >60 12/07/2020 22:03 [facility] Comment: Chronic renal impairment is defined as GFR <60 Multiply result by 1.210 for patients. eGFR calculated using the IDMS-traceable MDRD Study Equation. ??(effective 09/27/2014) Anion Gap 13 0 - 18 12/07/2020 22:03 [facility] GLUCOSE - [facility] 98 70 - 100 mg/dL 12/07/2020 22:03 [facility] Potassium 4.1 3.5 - 5.0 mEq/L 12/07/2020 22:03 [facility] Sodium 139 136 - 145 mEq/L 12/07/2020 22:03 [facility] TOTAL PROTEIN - [facility] 6.9 6.2 - 8.2 gm/dL 12/07/2020 22:03 [facility] SGOT/AST - [facility] 19 14 - 36 U/L 12/07/2020 22:03 [facility] SGPT/ALT - [facility] 11 0 - 35 U/L 22:03 [facility] 12/07/2020 21:4 6 EST 12/07/2020 21:46 EST us Damon Manuel MD CHEMISTRY & BLOOD GAS ORDERABLES Final Result [facility] [address] [place] [address] documented in this encounter Visit Diagnoses Not on filedocumented in this encounter Care Teams Real Estate Management Specialist Relationship Specialty Start Date End Date Romario Hairston MD [address] [place] [address] PCP - General 07/06/20 documented as of this encounter
--- OUTSIDE RECORDS SUMMARY | 2024-12-03 15:58 | XMS_ITS | Encounter Summary ---
Author Organization [facility] Address [address] [place] [address] Care Team Providers Care Brush Clearer Surveying Name Role Phone Romario Hairston MD Primary Care Provider +1- [phone] Reason for Visit * (Routine) - Receiving Office to Obtain Authorization Specialty Diagnoses / Procedures Referred By Mitch pruett Referred To Contact Procedures CT OUTSIDE IMAGES NEURO Unknown, Provider, MD Referral ID Status Reason Start Date Expiration Date Visits Requested Visits Authorized [id number] Receiving Office to Obtain Authorization 0 1 1 Encounter Details Date Type Department Care Team (Latest Contact Info) Description 08/13/2020 - 08/13/2020 23:59 EDT Hospital Encounter [facility] Center Secondary Reads [place] Discharge Disposition: Home or Self Care Social [...] this encounter Medications at Time of Discharge Prazosin (MINIPRESS) 1 mg capsule Take 1 Capsule by mouth at bedtime. 08/09/2020 acetaminophen (TYLENOL) 325 mg tablet Take 2 Tabs by mouth every 4 hours as needed for Pain. 50 Tab 03/31/2020 0 acetaminophen (TYLENOL) 500 mg tablet Take 2 Tabs by mouth every 6 hours. 07/14/2020 4 diclofenac sodium 1 % gel APPLY 2 GRAMS TO THE AFFECTED JOINT BID 08/10/2020 2 docusate sodium (COLACE) 100 mg capsule Take 1 Cap by mouth 2 times daily. 07/14/2020 2 ketotifen (ZADITOR) 0.025 % (0.035 %) ophthalmic solution Not filling 08/09/2020 2 levETIRAcetam (KEPPRA) 1,000 mg tablet Take 1 Tab by mouth every 12 hours for 90 days. 180 Tab 07/18/2020 0 melatonin 5 mg tablet Take 2 Tablets by mouth at bedtime. 4 methocarbamoL (ROBAXIN) 500 mg tablet Take 2 Tabs by mouth every 8 hours as needed for Muscle Spasms. 20 Tab 07/14/2020 0 OLANZapine (ZYPREXA) 5 mg tablet Take 5 [...] Take 200 mg by mouth at bedtime. 08/03/2020 0 documented as of this encounter Discharge Disposition Disposition Code Departure Means Destination Home or Self Care documented in this encounter Plan of Treatment Upcoming Encounters Date Type Department Care Team (Late st Contact Info) Description 03/04/2025 14:00 EDT Telemedicine [facility] [address] [place] [address] [phone] Brayan Polk MD [address] [place] [address] MOB-A [address] [place] [phone] 07/14/2025 14:30 EDT Office Visit [facility] Cancer Center Hematology & Oncology - [address] [phone] Evin Maria MD [address] [place] [address], [facility], Level 2 [place] [phone] documented as of this encounter Procedures Procedure Name Priority Date/Time Associated Diagnosis Comments CT OUTSIDE IMAGES NEURO Routine 09/14/2020 14:34 EDT documented in this encounter Results * CT OUTSIDE IMAGES NEURO (09/14/2020 14:34 EDT) Narrative 09/14/2020 14:34 EDT This is a non-reportable exam. us Provider Unknown MD CORREA OTHER IMAGING ORDERABLES Final Result documented in this encounter Visit Diagnoses Not on filedocumented in this encounter Care Teams Brush Clearer Surveying Relationship Specialty Start Date End Date Romario Hairston MD [address] [place] [address] PCP - General 07/06/20 documented as of this encounter
--- OUTSIDE RECORDS SUMMARY | 2024-12-03 15:58 | XMS_ITS | Encounter Summary ---
Author Organization [facility] Address [address] [place] [address] Care Team Providers Care Network Technology Instructor Name Role Phone Romario Hairston MD Primary Care Provider +1- [phone] Reason for Visit * Reason Onset Date Comments New/Evolving Symptoms 10/21/2020 Encounter Details Date Type Department Care Team (Late st Contact Info) Description 10/21/2020 Telephone [facility] Neurology Clinic [address] [place] [address] Brayan Polk MD [address] [facility] MOB-A [address] [place] [address] New/Evolving Symptoms Social History Tobacco [...] Telephone Encounter - Vashti Grover RN - 10/21/2020 1402 EST Ever reports that Ynes had an episode this morning with anxiety and she was out of it and doing the eye thing.He gave her the lorazepam as ordered and she has been OK for the rest of the day. This was the first time in the last month that she had an episode. He just wanted to let you know. I reinforced the actions he took as your last note spoke of anxiety triggering these episodes. * Telephone Encounter - Rita Del Castillo - 10/21/2020 1310 EST rec'd a voicemail from Ever that patient woke up having a few issues after not having any for over amonth. I called pt back to get more information but went to voicemail. Ever stated in the voicemail he would like a call back to discuss but he did not leave details regarding what type of issues he needs to discuss. documented in this encounter Plan of Treatment Upcoming Encounters Date Type Department Care Team (Late st Contact Info) Description 03/04/2025 14:00 EDT Telemedicine [facility] Neurology Clinic [address] [place], [place] [phone] Brayan Polk MD 130 [facility]-A [address] [place] [phone] 07/14/2025 14:30 EDT Office Visit [facility] Cancer Center Hematology & Oncology - [address] [phone] Evin Maria MD [address] [place] [address], [address] [place] [address] documented as of this encounter Visit Diagnoses Not on filedocumented in this encounter Care Teams Network Technology Instructor Relationship Specialty Start Date End Date Romario Hairston MD [facility] [place] [address] PCP - General 07/06/20 documented as of this encounter
--- OUTSIDE RECORDS SUMMARY | 2024-12-03 15:58 | XMS_ITS | Encounter Summary ---
Author Organization [facility] Address [address] [place] [address] Care Team Providers Care Sign Erector And Repairer Name Role Phone Romario Hairston MD Primary Care Provider +1- [phone] Reason for Visit * (Routine) - Receiving Office to Obtain Authorization Specialty Diagnoses / Procedures Referred By Mitch pruett Referred To Contact Procedures CT OUTSIDE IMAGES NEURO Unknown, Provider, MD Referral ID Status Reason Start Date Expiration Date Visits Requested Visits Authorized [id number] Receiving Office to Obtain Authorization 05/10/2021 1 1 Encounter Details Date Type Department Care Team (Latest Contact Info) Description 10/27/2020 - 10/27/2020 23:59 EST Hospital Encounter [facility] Center Secondary Reads [place] Discharge [...] by mouth every 6 hours. 07/14/2020 4 apixaban (ELIQUIS) 2.5 mg tablet Take 1 Tab by mouth 2 times daily. 60 Tab 6 09/20/2020 1 aspirin chewable 81 mg tablet Take 1 [...] %) ophthalmic solution Not filling 08/09/2020 2 loratadine (CLARITIN) 10 mg tablet TK 1 T PO QD 09/26/2020 1 melatonin 5 mg tablet Take 2 Tablets by mouth at bedtime. 4 OLANZapine (ZYPREXA) 5 mg tablet Take 5 [...] 4 zonisamide (ZONEGRAN) 100 mg capsule Take 2 Caps by mouth at bedtime. 180 Cap 1 09/19/2020 1 documented as of this encounter Discharge Disposition Disposition Code Departure Means Destination Home or Self Care documented in this encounter Plan of Treatment Upcoming Encounters Date Type Department Care Team (Late st Contact Info) Description 03/04/2025 14:00 EDT Telemedicine [facility] Neurology Clinic [address] [place] [phone] Brayan Polk MD [address] [place] [address]-A [address] [place] [phone] 07/14/2025 14:30 EDT Office Visit [facility] Cancer Center Hematology & Oncology - [address] [address] Evin Maria MD [address] [place] [address], [facility], Level 2 [place] [phone] documented as of this encounter Procedures Procedure Name Priority Date/Time Associated Diagnosis Comments CT OUTSIDE IMAGES NEURO Routine 05/10/2021 6:46 EDT documented in this encounter Results * CT OUTSIDE IMAGES NEURO (05/10/2021 6:46 EDT) Narrative 05/10/2021 6:46 EDT This is a non-reportable exam. us Provider Unknown MD CORREA OTHER IMAGING ORDERABLES Final Result documented in this encounter Visit Diagnoses Not on filedocumented in this encounter Care Teams Sign Erector And Repairer Relationship Specialty Start Date End Date Romario Hairston MD [address] [place] [address] PCP - General 07/06/20 documented as of this encounter
--- OUTSIDE RECORDS SUMMARY | 2024-12-03 15:58 | XMS_ITS | Encounter Summary ---
Author Organization [facility] Address [address] [place] [address] Care Team Providers Care Objects Conservator Name Role Phone Romario Hairston MD Primary Care Provider +1- [phone] Reason for Visit * Reason Onset Date Comments Appointment Related 11/02/2020 Encounter Details Date Type Department Care Team (Late st Contact Info) Description 11/02/2020 Telephone [facility] - [address] [address] Melany Pedro NP [address] [place] [address], [address] [place] [address] Appointment Related Social History Tobacco [...] Assessment Author No 07/16/2020 18:38 Lisa Muro, RN * Are you blind or do [...] encounter Miscellaneous Notes * Telephone Encounter - Lurdes Koeing - 11/02/2020 1137 EST Images from the original note were not included. Called and spoke to Ever and scheduled Ynes for a telemedicine visit with Melany. Appointment details below. documented in this encounter Plan of Treatment Upcoming Encounters Date Type Department Care Team (Late st Contact Info) Description 03/04/2025 14:00 EDT Telemedicine [facility] - [facility] Neurology Clinic [address] [place] [address] [phone] Brayan Polk MD [address] [place] [address]-[address] [place] [phone] 07/14/2025 14:30 EDT Office Visit [facility] Cancer Center Hematology & Oncology - [address] [address] Evin Maria MD [address] [place] [address], [facility], Level [address] [place] [address] documented as of this encounter Visit Diagnoses Not on filedocumented in this encounter Care Teams Objects Conservator Relationship Specialty Start Date End Date Romario Hairston MD [address] [place] [address] PCP - General 07/06/20 documented as of this encounter
--- OUTSIDE RECORDS SUMMARY | 2024-12-03 15:58 | XMS_ITS | Encounter Summary ---
Author Organization [facility] Address [address] [place] [address] Care Team Providers Care Test Boring Crew Chief Name Role Phone Romario Hairston MD Primary Care Provider +1- [phone] Reason for Visit * Reason Onset Date Comments Appointment Related 09/06/2020 Encounter Details Date Type Department Care Team (Late st Contact Info) Description 09/06/[address] [facility] Neurosurgery - [facility] [address] [place] [address] Tayler Vallejo RN Appointment Related Social History [...] Telephone Encounter - Tayler Vallejo RN - 09/06/2020 5011 EDT Spoke with patient's partner Ever to confirm following appointment details: Appointment date: 09/07/20 Appointment time: 1320 Provider: Pedro Patient's partner Ever will join her as she has issues with mobility and - both denied any covid symptoms. documented in this encounter Plan of Treatment Upcoming Encounters Date Type Department Care Team (Late st Contact Info) Description 03/04/2025 14:00 EDT Telemedicine [facility] - [facility] Neurology Clinic [address] [place] [address] [phone] Brayan Polk MD [address] [place] [address]- [address] [place] [phone] 07/14/2025 14:30 EDT Office Visit [facility] Cancer Center Hematology & Oncology - [address] [address] Evin Maria MD [address] [place] [address], Level [address] [place] [phone] documented as of this encounter Visit Diagnoses Not on filedocumented in this encounter Care Teams Test Boring Crew Chief Relationship Specialty Start Date End Date Romario Hairston MD [address], [place] [address] PCP - General 07/06/20 documented as of this encounter
--- OUTSIDE RECORDS SUMMARY | 2024-12-03 15:58 | XMS_ITS | Encounter Summary ---
Author Organization [facility] Address [address] [place] [address] Care Team Providers Care Media Relations Coordinator Name Role Phone Romario Hairston MD Primary Care Provider +1- [phone] Reason for Visit * Reason Onset Date Comments New/Evolving Symptoms 12/05/2020 Encounter Details Date Type Department Care Team (Late st Contact Info) Description 12/05/2020 Telephone [facility] Neurology Clinic [address] [place] [address] Brayan Polk MD 130 [facility] MOB-A [address] [place] [address] New/Evolving Symptoms Social History Tobacco [...] Telephone Encounter - Brayan Polk MD - 12/06/2020 1234 EST Ever says Ynes is doing better, anxiety and odd dreams are improved, she's had some flashes of memory in a short period of time. It makes her angry when it happens. Today none of them have happened yet. I reassured him that these do not sound like reasons that we would change her seizure medicine currently. She is still taking 200 mg nightly of zonisamide. * Telephone Encounter - Rita Del Castillo - 12/05/2020 1012 EST Ever called reporting that Ynes has had a rough week this last week with anger attacks, flashbacks to childhood, dreams and smelling childhood scents that will make her anxious. Ever stated he is concerned about what is happening documented in this encounter Plan of Treatment Upcoming Encounters Date Type Department Care Team (Late st Contact Info) Description 03/04/2025 14:00 EDT Telemedicine [facility] Neurology Clinic [address] [place], [place] [phone] Brayan Polk MD 130 [facility] MOB-A [address] [place] [address] 07/14/2025 14:30 EDT Office Visit [facility] Cancer Center Hematology & Oncology - [address] [address] Evin Maria MD [address] [facility], [address] 2 [place] [phone] documented as of this encounter Visit Diagnoses Not on filedocumented in this encounter Care Teams Media Relations Coordinator Relationship Specialty Start Date End Date Romario Hairston MD [address] [place], [place] [address] PCP - General 07/06/20 documented as of this encounter
--- OUTSIDE RECORDS SUMMARY | 2024-12-03 15:58 | XMS_ITS | Encounter Summary ---
Author Organization [facility] Address [address] [place] [address] Care Team Providers Care Intermodal Customer Service Name Role Phone Romario Hairston MD Primary Care Provider +1- [phone] Encounter Details Date Type Department Care Team (Latest Contact Info) Description 09/14/2020 Travel Social History Tobacco Use Types Packs/Day [...] EDT Telemedicine [facility] Neurology Clinic [address] [place] [phone] Brayan Polk MD [address] [place] [address]-[address] [place] [address] 07/14/2025 14:30 EDT Office Visit [facility] Cancer Center Hematology & Oncology - [address] [phone] Evin Maria MD 111 [facility], [address] [place] [address] documented as of this encounter Visit Diagnoses Not on filedocumented in this encounter Care Teams Intermodal Customer Service Relationship Specialty Start Date End Date Romario Hairston MD [address], [address] [id number] PCP - General 07/06/20 documented as of this encounter
--- OUTSIDE RECORDS SUMMARY | 2024-12-03 15:58 | XMS_ITS | Encounter Summary ---
Author Organization [facility] Address [address] [place] [address] Care Team Providers Care Executive Admin Name Role Phone Romario Hairston MD Primary Care Provider +1- [phone] Reason for Visit * Reason Onset Date Comments Other 09/09/2020 symptoms Encounter Details Date Type Department Care Team (Late st Contact Info) Description 09/09/2020 Telephone [facility] Neu[facility] Clinic [address] [place] [address] Brayan Polk MD 130 [facility] [address] [place] [address] Other (symptoms) Social History Tobacco Use Types Packs/Day Years [...] Telephone Encounter - Brayan Polk MD - 09/09/2020 1007 EDT I spoke with Ever, her symptoms have resolved. Her arm and speech are back to completely normal. Shestarted feeling very anxious afterwards also. She also has been waking up in the morning feeling anxious. They are still awaiting a psychiatrist who will help manage medicines. They also have an appointment next week with Dr. Munguia's office when they will determine whether anticoagulation will be resumed. I told Ever it is most reassuring that her symptoms are brief and intermittent and they havecompletely resolved. I encouraged him to keep calling when he is concerned about new symptoms so that we can discuss them because I do think that while she is at certainly high risk of having recurrence of cerebral venous thrombus, so far I think all of the symptoms she has been having are unlikelyto be related to that since they are so intermittent and so tightly associated with her feeling anxious. * Telephone Encounter - Vashti Grover RN - 09/09/2020 0849 EDT Spoke with Ever. He reports that R arm went numb at the same time as her speech was garbled. It happened when she first woke up and dissipated after about 3 to 5 minutes. He is scared this is a stroke. Should he take her in to the ER, he asked. I told him to wait until I could speak with the doctor. He said if it happens again before he speaks with Dr. Polk he is taking her to the emergency room. I agreed with this plan. He also asked why she was taken off of her blood thinner. She used to take Lovenox. I explained that since she had a brain bleed docs would be hesitant to place her on a blood thinner much stronger than the baby aspirin she is currently taking. He would like to address this with Dr. Polk also. Ever is waiting for Dr. Polk's return call. * Telephone Encounter - Rita Del Castillo - 09/09/2020 0838 EDT Rec'd call from Ever (pts caregiver) wanted to let the office know that pt's right arm went numb forabout 1 min & her speech was sluggish/disoriented. They are concerned that this may be some type of warning sign and would like advice on what to do next. They are requesting a call back as soon as we can. documented in this encounter Plan of Treatment Upcoming Encounters Date Type Department Care Team (Late st Contact Info) Description 03/04/2025 14:00 EDT Telemedicine [facility] Neurology Clinic [address] [place] [address] Brayan Polk MD 130 [facility] [address] [place] [address] 07/14/2025 14:30 EDT Office Visit [facility] Cancer Center Hematology & Oncology - [address] [address] Evin Maria MD [address] [place] [address], [address] [place] [address] documented as of this encounter Visit Diagnoses Not on filedocumented in this encounter Care Teams Executive Admin Relationship Specialty Start Date End Date Romario Hairston MD [address] [place] [address] PCP - General 07/06/20 documented as of this encounter
--- OUTSIDE RECORDS SUMMARY | 2024-12-03 15:58 | XMS_ITS | Encounter Summary ---
Author Organization [facility] Address [address] [place] [address] Care Team Providers Care College Tutor Name Role Phone Romario Hairston MD Primary Care Provider +1- [phone] Reason for Visit * Reason Onset Date Comments New/Evolving Symptoms 10/27/2020 Encounter Details Date Type Department Care Team (Late st Contact Info) Description 10/27/[address] [facility] [address] [place] [address] Brayan Polk MD 130 [facility] [address] [place] [address] New/Evolving Symptoms Social History Tobacco [...] Date of Assessment Author No 07/16/2020 18:38 Lias Muro RN * Do you have difficulty [...] Telephone Encounter - Vashti Grover RN - 10/27/[address] Polk says: thank you for letting us know. If it continues for more than 5 minutes and does not worsen then give her Her antianxiety medication. Please continue to call. * Telephone Encounter - Rita Del Castillo - 10/27/2020 0953 EST Ever came to the window to report that pt is having dizziness, right arm tingling lasted for about 5mins. Pt is in women's health now so that is why Ever came to the window vs calling. documented in this encounter Plan of Treatment Upcoming Encounters Date Type Department Care Team (Late st Contact Info) Description 03/04/2025 14:00 EDT Telemedicine [facility] Neurology Clinic [address] [place] [address] Brayan Polk MD 130 [facility] [address] [place] [address] 07/14/2025 14:30 EDT Office Visit [facility] Cancer Center Hematology & Oncology - [facility] [address] [place], [place] [address] Evin Maria MD 111 [facility], [address] [place] [phone] documented as of this encounter Visit Diagnoses Not on filedocumented in this encounter Care Teams College Tutor Relationship Specialty Start Date End Date Romario Hairston MD [address], [address] [address] PCP - General 07/06/20 documented as of this encounter
--- OUTSIDE RECORDS SUMMARY | 2024-12-03 15:58 | XMS_ITS | Encounter Summary ---
Author Organization [facility] Address [address] [place] [address] Care Team Providers Care Global Chief Experience Officer Name Role Phone Romario Hairston MD Primary Care Provider +1- [phone] Reason for Visit * Reason Onset Date Comments Other 09/20/2020 Encounter Details Date Type Department Care Team (Late st Contact Info) Description 09/20/2020 Telephone [facility] Cancer Center Hematology & Oncology - [facility] [address] [place] [address] Adali Garza RN [address] [place] [address] Other Social History Tobacco Use Types Packs/Day [...] Telephone Encounter - Adali Garza RN - 09/20/2020 1645 EDT Rx called to [facility] for Eliquis 2.5mg po BID documented in this encounter Plan of Treatment Upcoming Encounters Date Type Department Care Team (Late st Contact Info) Description 03/04/2025 14:00 EDT Telemedicine [facility] Neu[facility] Clinic [address] [place] [address] Brayan Polk MD [address] [place] [address] [place] [phone] 07/14/2025 14:30 EDT Office Visit [facility] Cancer Center Hematology & Oncology - [address] [phone] Eivn Maria MD [address] [place] [address], [facility], [address] [place] [phone] documented as of this encounter Visit Diagnoses Not on filedocumented in this encounter Care Teams Global Chief Experience Officer Relationship Specialty Start Date End Date Romario Hairston MD [address], [address] [address] PCP - General 07/06/20 documented as of this encounter
--- OUTSIDE RECORDS SUMMARY | 2024-12-03 15:58 | XMS_ITS | Encounter Summary ---
Author Organization [facility] Address [address] [place] [address] Care Team Providers Care Economics Faculty Member Name Role Phone Romario Hairston MD Primary Care Provider +1- [phone] Reason for Visit * Reason Onset Date Comments Follow-up 08/15/2020 08/13/2020 Encounter Details Date Type Department Care Team (Late st Contact Info) Description 08/15/2020 Telephone [facility] [address] [place] [address] Vashti Grover RN Follow-up (08/13/2020) Social History Tobacco Use Types Packs/Day Years [...] Telephone Encounter - Vashti Grover RN - 08/15/2020 09 EDT Spoke with Ever. Last dose of Keppra was on 08/09. She started the increased zonisamide 200 mg/day on08/10. So she was 4 days on the zonisamide dose when she went to the ER. Ever reported also that he gave her a methocarbamol and her symptoms went away. I did not order the EEG, and did not tell her to go up to 300 mg/day. She is scheduled for f/u withyou on Aug 31. * Telephone Encounter - Brayan Polk MD - 08/15/2020 0918 EDT See if she has in fact stopped levetiracetam and if so when. I'm most interested to see if these happen after she's off levetiracetam and on 200mg zonisamide for at least at least a week. If she hasn't yet been on zonisamide 200mg daily for a week, then that's the first step. If she's already been on zonisamide 200mg daily for at least a week when this event happened, then let's get her a standard EEG and increase to 300mg daily zonisamide. Otherwise get followup scheduled with first non-urgentfollowup spot. * Telephone Encounter - Vashti Grover RN - 08/15/2020 2648 EDT Received notice tht patient called combination window installer triage nurse on Saturday and was told to go to the ER. Also sent here by neurosurgeon d/t the possibility of a bleed. She presented there and had another CT scan that did not reveal any differences from study completed on 08/02/2020. From 08/05 office visit patient is cross- tapering form levetiracetam to zonisamide andshould now be on zonisamide 200 mg daily after the 5 day taper. However, ER instructions are to start zonisamide 100 mg daily for 7 days then 200 mg daily. Call placed to Dr. Polk to ask when he would like her seen again as his schedule is very full. Awaiting call back. documented in this encounter Plan of Treatment Upcoming Encounters Date Type Department Care Team (Late st Contact Info) Description 03/04/2025 14:00 EDT Telemedicine [facility] Neurology Clinic [address] [place] [id number] Brayan Polk MD [address] [place] [address] [place] [address] 07/14/2025 14:30 EDT Office Visit [facility] Cancer Center Hematology & Oncology - [address] [phone] Evin Maria MD [address] [place] [address], [facility], [address] [place] [phone] documented as of this encounter Visit Diagnoses Not on filedocumented in this encounter Care Teams Economics Faculty Member Relationship Specialty Start Date End Date Romario Hairston MD [address] [place] [address] PCP - General 07/06/20 documented as of this encounter
--- OUTSIDE RECORDS SUMMARY | 2024-12-03 15:58 | XMS_ITS | Encounter Summary ---
Author Organization [facility] Address [address] [place] [address] Care Team Providers Care Licensed Pharmacist Name Role Phone Romario Hairston MD Primary Care Provider +1- [phone] Reason for Visit * Reason Comments Follow-up Seizures Encounter Details Date Type Department Care Team (Late st Contact Info) Description 11/03/2020 10:30 EST Office Visit [facility] Neurology Clinic [address] [place] [address] Brayan Polk MD 130 [facility] [address] [place] [address] Focal seizure (HCC-CMS) (Primary Dx); Nontraumatic cortical hemorrhage of left cerebral hemisphere (HCC-CMS) Social [...] Sign Reading Time Taken Comments Blood Pressure 110/60 11/03/2020 1035 EST Pulse 70 11/03/2020 1035 EST Temperature - - Respiratory Rate - - [...] Progress Notes * Brayan Polk MD - 11/03/2020 1030 EST [facility] Neurology Clinic PATIENT NAME: Ynes White PATIENT : 1970 PCP: Romario Hairston DATE OF SERVICE: 11/03/2020 CHIEF COMPLAINT: ICH and symptomatic seizure HISTORY Ynes White is a 50 y.o. female who returns in follow-up with her friend Ever. There were a couple of episodes of tingling in the right arm lasting only minutes. There are no abnormal movements. She feels completely fine afterwards. There has only been one episode of her whole body shaking withfeeling anxious. She's sleeping through the night now, and that's a dramatic improvement. Her speech continues to improve and she works with the [facility] rehab team on this. Overall she and J both feel like she is continuing to make improvements, her mood seems to be improving also. These episodes which were much more frequent and have been decreasing in frequency. Summary: ICH related to cerebral venous thrombosis in January 2020, treated with surgical evacuation by Dr Piña, and subsequent cranioplasty, as well as likely symptomatic seizure in June for which she was briefly admitted to [facility], and placed on levetiracetam 1000mg BID [...] 2-Seizure Ever also witnessed the seizure in June, which was very different than these events. That one involved right arm movements, head and eye version to the one side, then whole body shaking with clear unconsciousness and post- ictal confusion. PAST MEDICAL HISTORY Past Medical History: Diagnosis [...] Outpatient Medications Marked as Taking for the 11/03/20 encounter (Office Visit) with Brayan Polk MD [...] Cap by mouth 2 times daily. ??? loratadine (CLARITIN) 10 mg tablet TK [...] Take 2 Caps by mouth at bedtime. REVIEW OF SYSTEMS: 5-point ROS performed and was negative except as noted in HPI. PHYSICAL EXAMINATION BP 110/60 Pulse 70 General appearance: alert, cooperative, very anxious Skin: No rashes or lesions HEENT: NC/AT, no oral lesions Extremities: no peripheral edema NEUROLOGIC EXAM Alert, quite improved fluency of speech with fewer hesitations and word substitutions, essentially normal content throughout the conversation, no significant dysarthria. 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 No pronator drift. Normal casual gait. NEUROIMAGING STUDIES: Personally reviewed Noncontrast head [...] head CT 10/27/2020 unchanged from prior ASSESSMENT: Ynes White is a 50 y.o. female who returns in follow-up for intracerebral hemorrhage secondary to cerebral venous thrombus in January 2020 treated with evacuation and cranioplasty, and subsequentleft hemispheric focal onset seizure causing right gaze deviation and right arm movements likely due to subdural fluid collection. Initial treatment levetiracetam led to severe emotional side effects, and zonisamide substitution has improved with this quite a bit. 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 These also seem to be improving recently. Overall her improvement has been steady and reassuring. 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 -Follow-up in about 3 months which was a timeframe they were comfortable with. Brayan Polk MD documented in this encounter Plan of Treatment Upcoming Encounters Date Type Department Care Team (Late st Contact Info) Description 03/04/2025 14:00 EDT Telemedicine [facility] Neurology Clinic [address] [place] [address] Brayan Polk MD 130 [facility] [address] [place] [address] 07/14/2025 14:30 EDT Office Visit [facility] Hematology & Oncology - [facility] [address] [place], [place] [phone] Evin Maria MD 111 [facility], [facility], [address] [place] [phone] documented as of this encounter Visit Diagnoses Diagnosis Focal seizure (HCC-CMS)- Primary Other convulsions 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 03/31/2020 11/03/2020 documented as of this encounter Historical Medications * This list may reflect changes made after this encounter. loratadine (CLARITIN) 10 mg tablet TK 1 T PO QD 09/26/2020 11/07/2021 buPROPion (WELLBUTRIN SR) 150 mg SR tablet TK 1 T PO QD IN THE MORNING 10/17/2020 03/28/2022 added in this encounter Care Teams Licensed Pharmacist Relationship Specialty Start Date End Date Romario Hairston MD [facility], [address] [address] PCP - General 07/06/20 documented as of this encounter
--- OUTSIDE RECORDS SUMMARY | 2024-12-03 15:59 | XMS_ITS | Encounter Summary ---
Author Organization [facility] Address [address] [place] [address] Care Team Providers Care Piano Technician Name Role Phone Romario Hairston MD Primary Care Provider +1- [phone] Reason for Visit * Reason Comments Post-OP Follow Up Suture / Staple Removal * Consult (Routine) - Order Cancelled Specialty Diagnoses / Procedures Referred By [facility] Referred To Contact Neurosurgery Diagnoses History of cranial surgery Antonieta Pickett MD [address] [place] [address] Phone: tel: fax: [address] [address] Phone: tel: fax: Referral ID Status Reason Start Date Expiration Date Visits Requested Visits Authorized [id number] Order Cancelled Specialty Services Required 07/14/2020 1 1 Encounter Details Date Type Department Care Team (Late st Contact Info) Description 07/27/2020 11:40 EDT Post-op Visit [address] [address] Claus Piña MD 111 [facility], [address] [place] [address] History of cranial surgery (Primary Dx) Social History Tobacco Use Types [...] have Coronavirus / COVID-19? No / Unsure 07/27/2020 11:28 EDT documented as of this encounter Last Filed Vital Signs Vital Sign Reading Time Taken Comments Blood Pressure - - Pulse - - Temperature - - Respiratory Rate - - Oxygen Saturation - - Inhaled Oxygen Concentration - - Weight 79.8 kg (176 lb) 07/27/2020 1134 EDT Height 162.6 cm (5' 4) 07/27/2020 1134 EDT Body Mass Index 30.21 07/27/2020 1134 EDT documented in this encounter Functional Status [...] documented in this encounter Progress Notes * Claus Piña MD - 07/27/2020 1140 EDT Images from the original note were not included. Neurosurgery Postop Outpatient Note Encounter Diagnoses Name Primary? History of cranial surgery Yes Patient Active Problem List Diagnosis ??? Back [...] History of cranial surgery ??? Seizure (HCC-CMS) 07/12/2020 Left frontal, temporal and parietal cranioplasty greater than 5 cm, using autologous bone. SURGEON:?? Claus Piña MD INDICATIONS:?? The patient is a 50-year-old woman who on 02/16/2020 underwent a left sided extensive craniectomy and removal of an intracranial hemorrhage caused by a venous thrombosis.?? She has done well in recovery but with significant residual speech deficits.?? She now presents after the woundis well healed for a return of her bone flap which has been kept sterilely in the freezer. 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 Imaging showed a poorly demarcated hemorrhage in the left temporoparietal region. This remained stable on [address] scans and she was given intravenous heparin. Today, however, the hemorrhage was found to have expanded significantly, with midline shift, and was associated with a decline in neurologic exam, consisting of right hemiparesis and decreased level of consciousness and ultimately an enlarging left pupil. Ynes White underwent the above cranioplasty about 2 weeks ago, and did well except that afterthe anticoagulation was resumed she returned after a seizure and a CT scan showed a subdural fluid/blood collection underneath the bone flap. Anticoagulation was stopped. She has had no further events, now on Keppra. She also takes Robaxin. As in the hospital, her primary complaint is right shoulder pain for which she was on opioids. Shoulder injection is pending. She has had no difficulties withwound healing. Exam: Height 162.6 cm (64), weight 79.8 kg (176 lb). Wound healing well without gapping. Tobias are in place. Assessment and Plan: She will be seen by our office nurse today to begin the process of staple removal. We were a bit concerned on closure about the skin tightness in the posterior temporal area. We will want to see a follow-up CT scan to check on the status of this subdural collection in about2 weeks. Once that collection is gone, we could consider resuming anticoagulation. I instructed them that we will transition her opioid prescribing to her primary care provider since shoulder pain isher primary issue at this point. Will continue in touch with her with instructions by telephone as the CT scans are done. Claus Piña MD FACS FAANS Professor, Neurological Surgery To Dr. Romario Hairston: Thank you for entrusting me with the surgical care of this patient. * Tayler Vallejo RN - 07/27/2020 1140 EDT Saw patient for staple and suture removal. Incision appears well healed although there is a significant amount of scabbing and some area of tightness. Area was cleaned with surgical scrub prior to removal with some scab loosening. Florinda and sutures were removed without issue. Incision was again cleaned with surgical scrub after suture/staple removal. A significant amount of scabbing was removed and incision was noted to be well healed with approximated edges. Discussed with patient wound careand washing as well as s/s that would require a call back to the clinic. Patient and her partner denied any questions. documented in this encounter Plan of Treatment Upcoming Encounters Date Type Department Care Team (Tres st Contact Info) Description 03/04/2025 14:00 EDT Telemedicine [facility] Neurology Clinic [address] [place] [address] Brayan Polk MD 130 [facility] [address] [place] [address] 07/14/2025 14:30 EDT Office Visit [facility] Cancer Center Hematology & Oncology - [address] [id number] Evin Maria MD 111 [facility], [facility], Level [address] [place] [address] documented as of this encounter Visit Diagnoses Diagnosis History of cranial surgery- Primary Other postprocedural status documented in this encounter Care Teams Piano Technician Relationship Specialty Start Date End Date Romario Hairston MD [facility], [address] [address] PCP - General 07/06/20 documented as of this encounter
--- OUTSIDE RECORDS SUMMARY | 2024-12-03 15:59 | XMS_ITS | Encounter Summary ---
Author Organization [facility] Address [address] [place] [address] Care Team Providers Care Implant Coordinator Name Role Phone Romario Hairston MD Primary Care Provider +1- [phone] Encounter Details Date Type Department Care Team (Latest Contact Info) Description 08/05/2020 Travel Social History Tobacco Use Types Packs/Day [...] Contact Info) Description 03/04/2025 14:00 EDT Telemedicine [facility] Neurology Clinic [address] [place] [address] Brayan Polk MD [address] [place] [address] [place] [address] 07/14/2025 14:30 EDT Office Visit [facility] Cancer Center Hematology & Oncology - [address] [phone] Evin Maria MD [address] [facility], [address] 2 [place] [address] documented as of this encounter Visit Diagnoses Not on filedocumented in this encounter Care Teams Implant Coordinator Relationship Specialty Start Date End Date Romario Hairston MD [address], [address] [phone] PCP - General 07/06/20 documented as of this encounter
--- OUTSIDE RECORDS SUMMARY | 2024-12-03 15:59 | XMS_ITS | Encounter Summary ---
Author Organization [facility] Address [address] [place] [address] Care Team Providers Care Rn Cvicu Name Role Phone Romario Hairston MD Primary Care Provider +1- [phone] Encounter Details Date Type Department Care Team (Late st Contact Info) Description 07/18/2020 Orders Only [facility] Neurosurgery - [address] [address] Claus Piña MD [address] [place] [address], [address] 5 [place] [address] S/P craniotomy (Primary Dx) Social History Tobacco Use Types [...] have Coronavirus / COVID-19? No / Unsure 07/16/2020 11:12 EDT documented as of this encounter Functional [...] Yes 07/16/2020 18:38 Lisa Muro RN documented as of this [...] 14:00 EDT Telemedicine [facility] Neurology Clinic [address] [place] [address] Brayan Polk MD [address] [facility]- [address] [place] [address] 07/14/2025 14:30 EDT Office Visit [facility] Cancer Center Hematology & Oncology - [address] [address] Evin Maria MD [address] [place] [address] 2 [place] [address] documented as of this encounter Visit Diagnoses Diagnosis S/P craniotomy- Primary Other postprocedural status documented in this encounter Care Teams Rn Cvicu Relationship Specialty Start Date End Date Romario Hairston MD [address], [address] [place] [address] PCP - General 07/06/20 documented as of this encounter
--- OUTSIDE RECORDS SUMMARY | 2024-12-03 15:59 | XMS_ITS | Encounter Summary ---
Author Organization [facility] Address [address] [place] [address] Care Team Providers Care Exchange Engineer Name Role Phone Romario Hairston MD Primary Care Provider +1- [phone] Reason for Visit * Reason Onset Date Comments Update 07/21/2020 Encounter Details Date Type Department Care Team (Late st Contact Info) Description 07/21/2020 Telephone [facility] - [address] [address] Melany Pedro NP [address] [place] [address], [address] 5 [place] [address] Update Social History Tobacco Use Types Packs/Day [...] Telephone Encounter - Melany Pedro APRN - 07/21/2020 1011 EDT TC to patient's PCP office to inform them of incidental finding of potential pulmonary nodule on pre-op chest XR that was ordered by this author. Spoke with office nurse, Mayra. Per radiology recommendation, patient should have a chest CT to f/u on this finding, will defer to PCP for ordering and further management of this issue. Will fax order report to Dr. Hairston's office. documented in this encounter Plan of Treatment Upcoming Encounters Date Type Department Care Team (Late st Contact Info) Description 03/04/2025 14:00 EDT Telemedicine [facility] Neurology Clinic [address] [place] [address] Brayan Polk MD 130 [facility] [address] [place] [address] 07/14/2025 14:30 EDT Office Visit [email or web address] Cancer Center Hematology & Oncology - [address] [phone] Evin Maria MD [address] [place] [address], [facility], [address] 2 [place] [address] documented as of this encounter Visit Diagnoses Not on filedocumented in this encounter Care Teams Exchange Engineer Relationship Specialty Start Date End Date Romario Hairston MD [address], [address] [address] PCP - General 07/06/20 documented as of this encounter
--- OUTSIDE RECORDS SUMMARY | 2024-12-03 15:59 | XMS_ITS | Encounter Summary ---
Author Organization [facility] Address [address] [place] [address] Care Team Providers Care Circuit Board Inspector Name Role Phone Romario Hairston MD Primary Care Provider +1- [phone] Encounter Details Date Type Department Care Team (Late st Contact Info) Description 07/30/2020 Results Only Imaging [facility] Cardiology Clinic [address] [place] [address] [place] Ponce MD [address] [place] [address] Social History Tobacco Use Types [...] 11:28 EDT documented as of this encounter Functional [...] Contact Info) Description 03/04/2025 14:00 EDT Telemedicine [facility] Neurology Clinic [address] [place] [phone] Brayan Polk MD [address] [place] [address] [address] [place] [phone] 07/14/2025 14:30 EDT Office Visit [facility] Hematology & Oncology - [address] [phone] Evin Maria MD [address] [place] [address], [address] 2 [place] [address] documented as of this encounter Procedures Procedure Name Priority Date/Time Associated Diagnosis Comments XR SHOULDER LEFT 2 OR MORE VIEWS 07/30/2020 20:[address] HEAD WO CONTRAST 07/30/2020 1 9:52 EDT EKG 12-LEAD 07/30/2020 19:08 EDT documented in this encounter Results * XR SHOULDER LEFT 2 OR MORE VIEWS (07/30/2020 20:03 EDT) Anatomical Region Laterality Modality Left Computed Radiogr aphy 07/30/2020 20:0 2 EDT Narrative 07/30/2020 20:03 EDT ? EXAM: RADIOLOGY/SHOULDER LT 2+VIEWS ? EX. D/ (195) ? CLINICAL INFORMATION: ? atraumatic shoulder pain ? PROCEDURE INFORMATION: ? Exam: XR Left Shoulder ? Exam date and time: 07/30/2020 19:01 ? Age: 50 years old ? Clinical indication: Pain; Shoulder; Left; Additional info: ? Atraumatic shoulder pain ? TECHNIQUE: ? Imaging protocol: XR Left shoulder. ? Views: 2 or more views. ? COMPARISON: ? No relevant prior studies available. ? FINDINGS: ? Bones/joints: No acute fracture or subluxation. Minimal ? acromioclavicular degenerative changes. ? Soft tissues: Normal. ? IMPRESSION: ? 1. No acute bony pathology. ? 2. Minimal acromioclavicular degenerative changes. ? REPORT SIGNED IN OTHER VENDOR SYSTEM 07/30/2020 ?Reported By: Alisa Flores MD ? CC: ? Transcribed Date/Time: 07/30/2020 (2002) ? Nurse Unit Manager: ? Printed Date/Time: 07/30/2020 (2002) ? PAGE 1 ? Signed Report ? Procedure Note Alisa Flores MD - 07/30/2020 EXAM: RADIOLOGY/SHOULDER LT 2+VIEWS EX. D/ (195) CLINICAL INFORMATION: atraumatic shoulder pain PROCEDURE INFORMATION: Exam: XR Left Shoulder Exam date and time: 07/30/2020 19:01 Age: 50 years old Clinical indication: Pain; Shoulder; Left; Additional info: Atraumatic shoulder pain TECHNIQUE: Imaging protocol: XR Left shoulder. Views: 2 or more views. COMPARISON: No relevant prior studies available. FINDINGS: Bones/joints: No acute fracture or subluxation. Minimal acromioclavicular degenerative changes. Soft tissues: Normal. IMPRESSION: 1. No acute bony pathology. 2. Minimal acromioclavicular degenerative changes. REPORT SIGNED IN OTHER VENDOR SYSTEM 07/30/2020 Reported By: Alisa Flores MD CC: Transcribed Date/Time: 07/30/2020 (2002) Nurse Unit Manager: Printed Date/Time: 07/30/2020 (2002) PAGE 1 Signed Report [place] Ponce MD IM DIAGNOSTIC IMAGING ORDER [place] Final Result * CT HEAD WO CONTRAST (07/30/2020 19:52 EDT) Anatomical Region Laterality Modality Head Computed Tomogra phy 07/30/2020 19:5 2 EDT Narrative 07/30/2020 19:52 EDT ? EXAM: CAT SCAN/HEAD WITHOUT CONTRAST ?EX. D/ (194) ? CLINICAL INFORMATION: ? reent hemorrhage, new confusion ? PROCEDURE INFORMATION: ? Exam: CT Head Without Contrast ? Exam date and time: 07/30/2020 18:57 ? Age: 50 years old ? Clinical indication: Other: Aphasia; Prior surgery; Surgery ? type: Recent bleed - crainiotomy, jaw surgery; Additional info: ? Reent hemorrhage, new confusion ? TECHNIQUE: ? Imaging protocol: Computed tomography of the head without ? contrast. ? Radiation optimization: All CT scans at this facility use at ? least one of these dose optimization techniques: automated ? exposure control; mA and/or kV adjustment per patient size ? (includes targeted exams where dose is matched to clinical ? indication); or iterative reconstruction. ? COMPARISON: ? CT HEAD W/O CONTRAST STROKE ALERT 07/16/2020 10:32 ? FINDINGS: ? Brain: Left temporal encephalomalacia is evolving. Intermediate ? density, left frontal parietal and temporal collection decreased ? in size. Maximal with of the left cerebral subdural collection ? is 6 mm, previously 9 mm. Coarse calcification along the ? cephalad aspect appearing benign. Decreased extra-axial gas, now ? minimal. No new or acute appearing intracranial hemorrhage. No ? midline shift or herniation. ? Ventricles: No ventriculomegaly. ? Bones/joints: Left temporal and frontal cranioplasty. No acute ? calvarial pathology. ? Sinuses: No acute sinusitis. ? Mastoid air cells: No mastoid effusion. ? Soft tissues: Scalp ghassan have been removed. No collections in ? the scalp. ? IMPRESSION: ? 1. No acute findings. ? 2. Left temporal encephalomalacia is evolving. ? 3. The left supratentorial subdural collection has decreased in ? size. I favor an involving, small subdural hematoma and/or ? postsurgical changes. ? 4. No new or acute appearing intracranial hemorrhage. ? REPORT SIGNED IN OTHER VENDOR SYSTEM 07/30/2020 ?Reported By: Alisa Flores MD ? CC: ? Transcribed Date/Time: 07/30/2020 (1951) ? Nurse Unit Manager: ? Printed Date/Time: 07/30/2020 (1951) ? PAGE 1 ? Signed Report ? Procedure Note Alisa Flores MD - 07/30/2020 EXAM: CAT SCAN/HEAD WITHOUT CONTRAST EX. D/ (1941) CLINICAL INFORMATION: reent hemorrhage, new confusion PROCEDURE INFORMATION: Exam: CT Head Without Contrast Exam date and time: 07/30/2020 18:57 Age: 50 years old Clinical indication: Other: Aphasia; Prior surgery; Surgery type: Recent bleed - crainiotomy, jaw surgery; Additional info: Reent hemorrhage, new confusion TECHNIQUE: Imaging protocol: Computed tomography of the head without contrast. Radiation optimization: All CT scans at this facility use at least one of these dose optimization techniques: automated exposure control; mA and/or kV adjustment per patient size (includes targeted exams where dose is matched to clinical indication); or iterative reconstruction. COMPARISON: CT HEAD W/O CONTRAST STROKE ALERT 07/16/2020 10:32 FINDINGS: Brain: Left temporal encephalomalacia is evolving. Intermediate density, left frontal parietal and temporal collection decreased in size. Maximal with of the left cerebral subdural collection is 6 mm, previously 9 mm. Coarse calcification along the cephalad aspect appearing benign. Decreased extra-axial gas, now minimal. No new or acute appearing intracranial hemorrhage. No midline shift or herniation. Ventricles: No ventriculomegaly. Bones/joints: Left temporal and frontal cranioplasty. No acute calvarial pathology. Sinuses: No acute sinusitis. Mastoid air cells: No mastoid effusion. Soft tissues: Scalp ghassan have been removed. No collections in the scalp. IMPRESSION: 1. No acute findings. 2. Left temporal encephalomalacia is evolving. 3. The left supratentorial subdural collection has decreased in size. I favor an involving, small subdural hematoma and/or postsurgical changes. 4. No new or acute appearing intracranial hemorrhage. REPORT SIGNED IN OTHER VENDOR SYSTEM 07/30/2020 Reported By: Alisa Flores MD CC: Transcribed Date/Time: 07/30/2020 (1951) Nurse Unit Manager: Printed Date/Time: 07/30/2020 (1951) PAGE 1 Signed Report us [place] Ponce MD IMG CT ORDERABLES Final Resu lt * EKG 12-LEAD (07/30/2020 19:08 EDT) 07/30/2020 19:0 8 EDT [facility] LAB - 07/30/2020 19:08 EDT ? CV ? Test Date: ?2020-07-30 19:08:15 Pat Name: ? NAPOLEON LOYA ? Department: ?Room: ? Gender: ? F ?Furniture Technician: ?? MYNOR : ?1970 ? Requested By: Order Number: ?Reading : ?? Levy Collire MD ? Measurements Intervals ?[place] ? Rate: ? 93 ? P: ?49 MT: ? 132 ?QRS: ?24 QRSD: ? 76 ? T: ?41 QT: ? 362 ? QTc: ?450 ? Interpretive Statements Normal sinus rhythm Normal ECG Compared to ECG 02/14/2020 14:37:20 No significant changes Electronically Signed On 07-30-2020 19:34:44 EDT by Levy Collier MD [email or web address] Procedure Note Levy Collier MD - 07/30/2020 [facility] Test Date: 2020-07-30 19:08:15 Pat Name: NAPOLEON LOYA Department: Room: Gender: F Furniture Technician: MYNOR : 1970 Requested By: Order Number: Reading MD: Levy Collier MD Measurements Intervals [place] Rate: 93 P: 49 MT: 132 QRS: 24 QRSD: 76 T: 41 QT: 362 QTc: 450 Interpretive Statements Normal sinus rhythm Normal ECG Compared to ECG 02/14/2020 14:37:20 No significant changes Electronically Signed On 07-30-2020 19:34:44 EDT by Levy Collier MD [email or web address] us [place] Ponce MD CARDIAC ECG ORDERABLES Final Result [facility] [address] [place] [address] documented in this encounter Visit Diagnoses Not on filedocumented in this encounter Additional Health Concerns Infection Onset Date Last Indicated Resolved Time R/O COVID-19 Comment:Negative result 03/07/2022 03/07/2022 03/07/2022 9:37 EDT R/O COVID-19 01/28/2024 01/28/2024 01/29/2024 0:27 EST documented as of this encounter Care Teams Circuit Board Inspector Relationship Specialty Start Date End Date Romario Hairston MD [address], [address] [place] [address] PCP - General 07/06/20 documented as of this encounter
--- OUTSIDE RECORDS SUMMARY | 2024-12-03 15:59 | XMS_ITS | Encounter Summary ---
Author Organization [facility] Address [address] [place] [address] Care Team Providers Care Digital Asset Manager Name Role Phone Romario Hairston MD Primary Care Provider +1- [phone] Reason for Visit * Reason Onset Date Comments Medication Questions 07/27/2020 Encounter Details Date Type Department Care Team (Late st Contact Info) Description 07/27/2020 Telephone [facility] - [address] [address] Claus Piña MD [address] [place] [address], [address] [place] [address] Medication Questions Social History Tobacco [...] Refills Last Filled Start Date End Date oxyCODONE (ROXICODONE) 5 mg immediate release tablet Take 1 Tab by mouth every 6 hours as needed for up to 5 days for Pain. Daily Max: 20 mg 20 Tab 07/27/2020 08/01/2020 documented in this encounter Miscellaneous Notes * Telephone Encounter - Talyer Vallejo RN - 07/27/2020 1703 EDT Spoke with Ever who was notified of the refill. * Telephone Encounter - Tayler Vallejo RN - 07/27/[address] Piña is is OK with prescribing oxycodone to help with surgical pain as patient is still in the 30 day post-op window. * Telephone Encounter - Isatu, Martha - 07/27/2020 1607 EDT Patient's EC, Ever called stating Dr. Piña would turn over to PCP to refill Oxycodone and they won't because post op they don't recommend it. Tylenol and creams they recommend. He is concerned she may cry and frantic he will do the best he can. Is Dr. Piña able to override this decision? Please call. documented in this encounter Plan of Treatment Upcoming Encounters Date Type Department Care Team (Late st Contact Info) Description 03/04/2025 14:00 EDT Telemedicine [facility] Neurology Clinic [address] [place] [id number] Brayan Polk MD 130 [facility] [address] [place] [address] 07/14/2025 14:30 EDT Office Visit [facility] Cancer Center Hematology & Oncology - [address] [phone] Evin Maria MD [address] [place] [address], [address] [place] [address] documented as of this encounter Visit Diagnoses Not on filedocumented in this encounter Discontinued Medications Medication Sig Discontinue Reason Start Date End Da te oxyCODONE (ROXICODONE) 5 mg immediate release tablet Take 1 Tab by mouth every 4 hours as needed for Pain. Daily Max: 30 mg Reorder 07/24/2020 07/27/2020 documented as of this encounter Care Teams Digital Asset Manager Relationship Specialty Start Date End Date Romario Hairston MD [address], [address] [phone] PCP - General 07/06/20 documented as of this encounter
--- OUTSIDE RECORDS SUMMARY | 2024-12-03 15:59 | XMS_ITS | Encounter Summary ---
Author Organization [facility] Address [address] [place] [address] Care Team Providers Care Advertising Supervisor Name Role Phone Romario Hairston MD Primary Care Provider +1- [phone] Reason for Visit * (Routine) - Receiving Office to Obtain Authorization Specialty Diagnoses / Procedures Referred By Mitch pruett Referred To Contact Procedures XR OUTSIDE IMAGES MSK Unknown, Provider, MD Referral ID Status Reason Start Date Expiration Date Visits Requested Visits Authorized [id number] Receiving Office to Obtain Authorization 07/30/2020 1 1 Encounter Details Date Type Department Care Team (Latest Contact Info) Description 07/30/2020 20:37 EDT Hospital Encounter [facility] Secondary Reads [place] Discharge Disposition: Home or [...] Discharge acetaminophen (TYLENOL) 325 mg tablet Take 2 Tabs by mouth every 4 hours as needed for Pain. 50 Tab 03/31/2020 0 acetaminophen (TYLENOL) 500 mg tablet Take 2 Tabs by mouth every 6 hours. 07/14/2020 4 docusate sodium (COLACE) 100 mg capsule Take 1 Cap by mouth 2 times daily. 07/14/2020 2 levETIRAcetam (KEPPRA) 1,000 mg tablet Take 1 Tab by mouth every 12 hours for 90 days. 180 Tab 07/18/2020 0 melatonin 5 mg tablet Take 2 Tablets by mouth at bedtime. 4 methocarbamoL (ROBAXIN) 500 mg tablet Take 2 Tabs by mouth every 8 hours as needed for Muscle Spasms. 20 Tab 07/14/2020 0 Multivitamins with Minerals tablet tablet Take 1 Tab by mouth daily. 07/18/2020 0 ondansetron (ZOFRAN-ODT) 4 mg disintegrating tablet Take 1 Tab by mouth every 8 hours as needed for Nausea. 15 Tab 07/14/2020 0 oxyCODONE (ROXICODONE) 5 mg immediate release tablet Take 1 Tab by mouth every 6 hours as needed for up to 5 days for Pain. Daily Max: 20 mg 20 Tab 07/27/2020 0 oxyCODONE (ROXICODONE) 5 mg immediate release tablet Take 2 Tabs by mouth every 4 hours as needed for Pain. Daily Max: 60 mg 15 Tab 07/14/2020 0 pantoprazole (PROTONIX) 20 mg tablet Take 40 mg by mouth daily. 0 pantoprazole (PROTONIX) 40 mg tablet TK 1 T PO QD 05/06/2020 1 polyethylene glycol (MIRALAX) 17 gram/dose powder Take 17 g by mouth daily. 510 g 03/31/2020 4 QUEtiapine (SEROQUEL) 50 mg tablet Take 50 mg by mouth at bedtime. 2 senna (SENOKOT) 8.6 mg tablet Take 1 Tab by mouth 2 times daily as needed (Constipation ). 03/30/2020 4 documented as of this encounter Discharge Disposition Disposition Code Departure Means Destination Home or Self Care documented in this encounter Plan of Treatment Upcoming Encounters Date Type Department Care Team (Late st Contact Info) Description 03/04/2025 14:00 EDT Telemedicine [facility] [place] [address] [place] [id number] Brayan Polk MD [address] [place] [address] [place] [address] 07/14/2025 14:30 EDT Office Visit [facility] Cancer Center Hematology & Oncology - [address] [phone] Evin Maria MD [address] [place] [address], [address] [place] [address] documented as of this encounter Procedures Procedure Name Priority Date/Time Associated Diagnosis Comments XR OUTSIDE IMAGES MSK Routine 07/30/2020 20:37 EDT documented in this encounter Results * XR OUTSIDE IMAGES MSK (07/30/2020 20:37 EDT) Narrative 07/30/2020 20:37 EDT This is a non-reportable exam. us Provider Unknown IMSuzanne OTHER IMAGING ORDERABLES Final Result documented in this encounter Visit Diagnoses Not on filedocumented in this encounter Care Teams Advertising Supervisor Relationship Specialty Start Date End Date Romario Hairston MD [address] [place] [address] PCP - General 07/06/20 documented as of this encounter
--- OUTSIDE RECORDS SUMMARY | 2024-12-03 15:59 | XMS_ITS | Encounter Summary ---
Author Organization [facility] Address [address] [place] [address] Care Team Providers Care Fourdrinier Operator Name Role Phone Romario Hairston MD Primary Care Provider +1- [phone] Encounter Details Date Type Department Care Team (Latest Contact Info) Description 07/27/2020 Travel Social History Tobacco Use Types Packs/Day [...] Contact Info) Description 03/04/2025 14:00 EDT Telemedicine [facility] Neurology Clinic [address] [place] [id number] Brayan Polk MD [address] [place] [address]A [address] [place] [address] 07/14/2025 14:30 EDT Office Visit [facility] Cancer Center Hematology & Oncology - [address] [phone] Evin Maria MD 111 [facility], [address] [place] [address] documented as of this encounter Visit Diagnoses Not on filedocumented in this encounter Care Teams Fourdrinier Operator Relationship Specialty Start Date End Date Romario Hairston MD [address], [address] [phone] PCP - General 07/06/20 documented as of this encounter
--- OUTSIDE RECORDS SUMMARY | 2024-12-03 15:59 | XMS_ITS | Encounter Summary ---
Author Organization [facility] Address [address] [place] [address] Care Team Providers Care Model Technician Name Role Phone Romario Hairston MD Primary Care Provider [phone]- [phone] Encounter Details Date Type Department Care Team (Late st Contact Info) Description 08/02/2020 Results Only Imaging [facility] Radiology Results [address] [place] [address] Bucky Matta MD Social History [...] EDT Telemedicine [facility] [address] [place] [phone] Brayan Polk MD [address] [place] [address]-[address] [place] [address] 07/14/2025 14:30 EDT Office Visit [facility] Hematology & Oncology - [address] [id number] Evin Maria MD [address] [place] [address], [address] [place] [address] documented as of this encounter Procedures Procedure Name Priority Date/Time Associated Diagnosis Comments CT HEAD WO CONTRAST 08/02/2020 1 4:52 EDT documented in this encounter Results * CT HEAD WO CONTRAST (08/02/2020 14:52 EDT) Anatomical Region Laterality Modality Head Computed Tomogra phy 08/02/2020 14:4 9 EDT Narrative 08/02/2020 14:52 EDT ? EXAM: CAT SCAN/HEAD WITHOUT CONTRAST ?EX. D/ (1439) ? CLINICAL INFORMATION: ? History of 2 brain bleeds within the last 6 months ? INDICATION: History of 2 brain bleeds within the last 6 months, ? Currently presents with tremors TREMORS ? TECHNIQUE: Axial unenhanced CT imaging of the brain was obtained. ? COMPARISON: 07/30/2020. 07/16/2020. ? FINDINGS: The patient is status post left convexity craniotomy. There ? is an adjacent isodense/hypodense extra-axial collection measuring up ? to 5 mm in thickness (series 5 image 36). No appreciable associated ? mass effect is noted. The lateral left temporal area encephalomalacia ? is again seen, unchanged. ? No evidence of cerebral herniation is seen. No new areas of abnormal ? intra or extra-axial fluid are noted. The position of the cerebellar ? tonsils is unremarkable. The area of the internal auditory canals, ? cavernous sinuses and Meckel's cave appear unremarkable. ? The orbits are symmetric. The paranasal sinuses and mastoid air cells ? are clear. The orbits are unremarkable. ? IMPRESSION: ? 1. No acute intracranial hemorrhage detected. ? 2. Left convexity postoperative change. The left convexity subdural ? hematoma may have minimally retracted now measuring 5 mm in ? thickness. ? 3. Left temporal encephalomalacia, unchanged. ? REPORT SIGNED IN OTHER VENDOR SYSTEM 08/02/2020 ?Reported By: Toni Disla MD ? CC: ? Transcribed Date/Time: 08/02/2020 (025) ? Dining Car Server: ? Printed Date/Time: 08/02/2020 (0558) ? PAGE 1 ? Signed Report ? Procedure Note Toni Disla MD - 08/02/2020 EXAM: CAT SCAN/HEAD WITHOUT CONTRAST EX. D/ (0089) CLINICAL INFORMATION: History of 2 brain bleeds within the last 6 months INDICATION: History of 2 brain bleeds within the last 6 months, Currently presents with tremors TREMORS TECHNIQUE: Axial unenhanced CT imaging of the brain was obtained. COMPARISON: 07/30/2020. 07/16/2020. FINDINGS: The patient is status post left convexity craniotomy.There is an adjacent isodense/hypodense extra-axial collection measuringup to 5 mm in thickness (series 5 image 36). No appreciable associated mass effect is noted. The lateral left temporal areaencephalomalacia is again seen, unchanged. No evidence of cerebral herniation is seen. No new areas ofabnormal intra or extra-axial fluid are noted. The position of thecerebellar tonsils is unremarkable. The area of the internal auditory canals, cavernous sinuses and Meckel's cave appear unremarkable. The orbits are symmetric. The paranasal sinuses and mastoid aircells are clear. The orbits are unremarkable. IMPRESSION: 1. No acute intracranial hemorrhage detected. 2. Left convexity postoperative change. The left convexity subdural hematoma may have minimally retracted now measuring 5 mm in thickness. 3. Left temporal encephalomalacia, unchanged. REPORT SIGNED IN OTHER VENDOR SYSTEM 08/02/2020 Reported By: Toni Disla MD CC: Transcribed Date/Time: 08/02/2020 (1637) Dining Car Server: Printed Date/Time: 08/02/2020 (136) PAGE 1 Signed Report us Bucky Matta MD IMG CT ORDERABLES Final Resul t documented in this encounter Visit Diagnoses Not on filedocumented in this encounter Additional Health Concerns Infection Onset Date Last Indicated Resolved Time R/O COVID-19 Comment:Negative result 03/07/2022 03/07/2022 03/07/2022 9:37 EDT R/O COVID-19 01/28/2024 01/28/2024 01/29/2024 0:27 EST documented as of this encounter Care Teams Model Technician Relationship Specialty Start Date End Date Romario Hairston MD [address] [place] [id number] PCP - General 07/06/20 documented as of this encounter
--- OUTSIDE RECORDS SUMMARY | 2024-12-03 15:59 | XMS_ITS | Encounter Summary ---
Author Organization [facility] Address [address] [place] [address] Care Team Providers Care Sous Chef Name Role Phone Romario Hairston MD Primary Care Provider +1- [phone] Encounter Details Date Type Department Care Team (Late st Contact Info) Description 08/13/2020 Results Only Health system - [facility] - Main [address] [address] Bucky Matta MD Social History Tobacco Use [...] Info) Description 03/04/2025 14:00 EDT Telemedicine [facility] Neurology Clinic [address] [place] [phone] Brayan Polk MD [address] [place] [address] [place] [address] 07/14/2025 14:30 EDT Office Visit [facility] Hematology & Oncology - [address] [address] Evin Maria MD [address] [place] [address], [address] [place] [address] documented as of this encounter Procedures Procedure Name Priority Date/Time Associated Diagnosis Comments COMPLETE BLOOD COUNT WITH DIFFERENTIAL (AUTO) Routine 08/13/2020 19:00 EDT MAGNESIUM Routine 08/13/2020 19:00 EDT COMPREHENSIVE METABOLIC PANEL (CMP) Routine 08/13/2020 19:00 EDT documented in this encounter Results * MAGNESIUM (08/13/2020 19:00 EDT) Pathologist [facility] Magnesium 1.80 1.7 - 2.8 mg/dL 08/13/2020 19:35 [facility] 08/13/2020 19:0 0 EDT 08/13/2020 19:16 EDT us Bucky Matta MD CHEMISTRY & BLOOD GAS ORDERAB LES Final Result [facility] [address] [place] [address] * (ABNORMAL) COMPREHENSIVE METABOLIC PANEL (CMP) (08/13/2020 19:00 EDT) Pathologist [facility] Albumin % 4.6 3.4 - 4.9 g/dL 08/13/2020 19:35 [facility] ALKALINE PHOSPHATASE - [facility] 122 38 - 126 U/L 08/13/2020 19:35 [facility] BILIRUBIN TOTAL 0.4 0.2 - 1.3 mg/dL 08/13/2020 19:35 [facility] BUN - [facility] 15 10 - 26 mg/dL 08/13/2020 19:35 [facility] CALCIUM - [facility] 10.6(H) 8.5 - 10.5 mg/dL 08/13/2020 19:35 [facility] Chloride 103 96 - 110 mmol/L 08/13/2020 19:35 [facility] CO2 Total 25 22 - 32 mEq/L 08/13/2020 19:35 [facility] CREATININE 0.98 0.52 - 1.04 mg/dL 08/13/2020 19:35 [facility] eGFR 60 08/13/2020 19:35 [facility] Comment: Chronic renal impairment is defined as GFR <60 Multiply result by 1.210 for patients. eGFR calculated using the IDMS-traceable MDRD Study Equation. ??(effective 09/27/2014) Anion Gap 10 0 - 18 08/13/2020 19:35 [facility] GLUCOSE - [facility] 101(H) 70 - 100 mg/dL 08/13/2020 19:35 [facility] Potassium 4.4 3.5 - 5.0 mEq/L 08/13/2020 19:35 [facility] Sodium 138 136 - 145 mEq/L 08/13/2020 19:35 [facility] TOTAL PROTEIN - [facility] 7.7 6.2 - 8.2 gm/dL 08/13/2020 19:35 [facility] SGOT/AST - [facility] 22 14 - 36 U/L 08/13/2020 19:35 [facility] SGPT/ALT - [facility] 14 0 - 35 U/L 0 19:35 [facility] 08/13/2020 19:0 0 EDT 08/13/2020 19:16 EDT us Bucky Matta MD CHEMISTRY & BLOOD GAS ORDERAB LES Final Result [facility] [address] [place] [address] * (ABNORMAL) COMPLETE BLOOD COUNT WITH DIFFERENTIAL (AUTO) (08/13/2020 19:00 EDT) Gran # 3.7 2.2 - 8.85 10e3/uL 08/13/2020 19:31 EDT [facility] BASO # - [facility] 0.05 0.01 - 0.11 10e/uL 08/13/2020 19:31 EDT [facility] BASO % - [facility] 1 0 - 2 % 08/13/2020 19:31 EDT [facility] EOS # - [facility] 0.30 0.03 - 0.61 10e3/ul 08/13/2020 19:31 EDT [facility] EOS % - [facility] 4 0 - 5 % 08/13/2020 19:31 EDT [facility] GRAN % - [facility] 45.3 40 - 80 % 08/13/2020 19:31 EDT [facility] HEMATOCRIT - [facility] 40.8 34.9 - 44.4 % 08/13/2020 19:31 [facility] HEMOGLOBIN - [facility] 13.4 11.6 - 15.2 g/dl 08/13/2020 19:31 [facility] IG# - [facility] 0.01 0 - 0.7 10e3/uL 08/13/2020 19:31 [facility] IG% - [facility] 0.1 0 - 0.9 % 08/13/2020 19:31 [facility] LYMPH # - [facility] 3.8(H) 1.09 - 3.3 10e3/ul 08/13/2020 19:31 [facility] LYMPH% - [facility] 46.4(H) 20 - 40 % 08/13/2020 19:31 [facility] MEAN CORPUSCULAR HGB - [facility] 28.7 26.7 - 33.3 pg 08/13/2020 19:31 [facility] MEAN CORPUSCULAR HGB CONC - [facility] 32.8 32.1 - 35.9 g/dL 08/13/2020 19:31 [facility] MEAN CELL VOLUME - [facility] 87.4 81 - 98 fl 08/13/2020 19:31 [facility] MONO # - [facility] 0.3 0.1 - 0.8 10e3/uL 08/13/2020 19:31 [facility] MONO% - [facility] 4.0 0 - 12 % 08/13/2020 19:31 [facility] PLATELET COUNT 257 141 - 377 10e3/ul 08/13/2020 19:31 [facility] RED BLOOD COUNT - [facility] 4.67 3.86 - 5.04 10e3/ul 08/13/2020 19:31 [facility] RED CELL DISTRI WIDTH - [facility] 12.9 <14.7 % 08/13/2020 19:31 [facility] WHITE BLOOD COUNT - [facility] 8.2 4.0 - 12.4 10e3/ul 08/13/2020 19:31 [facility] 08/13/2020 19:0 0 EDT 08/13/2020 19:16 EDT us Bucky Matta MD HEMATOLOGY & PF4 ORDERABLES F inal Result [facility] [address] [place] [address] documented in this encounter Visit Diagnoses Not on filedocumented in this encounter Care Teams Sous Chef Relationship Specialty Start Date End Date Romario Hairston MD [address], [address] [place] [id number] PCP - General 07/06/20 documented as of this encounter
--- OUTSIDE RECORDS SUMMARY | 2024-12-03 15:59 | XMS_ITS | Encounter Summary ---
Author Organization [facility] Address [address] [id number] Care Team Providers Care Sales And Service Officer Name Role Phone Romario Hairston MD Primary Care Provider [phone] Reason for Referral * Referral (Routine) - New Request Specialty Diagnoses / Procedures [facility] Referred To Contact Diagnoses Seizure ([facility]) History of cranial surgery Antonieta Pickett MD [address] [place] [address] Phone: tel: fax: [facility], [place] [address] [place] [address] Phone: tel: fax: Referral ID Status Reason Start Date Expiration Date Visits Requested Visits Authorized [id number] New Request Specialty Services Required 07/18/2020 1 1 Question Answer I certify that this patient is under my care and that I, or another Medicare allowed practitioner (DO DONN, RYNE) working with me, had a [id number] encounter with this patient on this date: 07/18/2020 I further certify that the [id number] encounter was in whole or in part related to the reason the patient needs home health care. Yes The discharge summary or progress note will provide further details that support the need for the home health services and the plan of care. Yes Enter the allowed practitioner (DO DONN, RYNE) who will provide oversight of this patient's home heatlh care needs and plan of care Verenice Correa The patient? s homebound status is related to the following diagnoses, illness or condition (describe): cranioplasty The patient has a condition due to an illness or injury that restricts the ability to leave home except with: The assistance or supervision of another person Leaving the home is medically contraindicated due to (reason 1): Post surgical restrictions or conditions Leaving home requires a considerable and taxing effort with mobility limited by the following (criteria 1): The severity of the neurological disease limits functional ability and ambulation Nursing skilled care requested: Nursing asessment, Physical Therapy, Occupational therapy, MARKETING DIRECTOR ASSISTED LIVING correction assessment needed related to this encounter: Neuro Status, Post Surgical, Response to new or changed medication Physical therapy is needed for: Evaluation, Weight Bearing, Safety, Post Surgical, Gait/Mobility Assessment and Training, Strength Training/Exercise Program, Equipment Recommendations MARKETING [employer]OR [facility]ISTED LIVING for: Communication Occupational Therapy for: ADL Training, Assess Need for Adaptive Equipment, Bathroom Equipment Eval Reason for Visit * Reason Comments Seizures Pt transfer from [facility]. Pt states she had a small seizure this am. No LOC VSS Pt afebrile. Encounter Details Date Type Department Care Team (Late st Contact Info) Description 07/16/2020 12:55 EDT - 07/18/2020 11:25 EDT Emergency [facility] [address] [place] [address] Jaylyn Georges MD 111 [facility], [facility] [address] [place] [id number] Juan C Hoskins MD 111 [facility] [address] [place] [address] Seizure (HCC-CMS) (Primary Dx); History of cranial surgery Discharge Disposition: Home or Self Care Social [...] 11:12 EDT documented as of this encounter Last Filed Vital Signs Vital Sign Reading Time Taken Comments Blood Pressure 105/83 07/18/2020 0958 EDT Pulse 80 07/18/2020 0500 EDT Temperature 35.3 ??C (95.5 ??F) 07/18/2020 0958 EDT Respiratory Rate 18 07/18/2020 0958 EDT Oxygen Saturation 97% 07/18/2020 0958 EDT Inhaled Oxygen Concentration - - Weight 80 kg (176 lb 4.8 oz) 07/16/2020 183 EDT Height 162.6 cm (5' 4) 07/16/2020 1838 EDT Body Mass Index 30.26 07/16/2020 1838 EDT documented in this encounter Functional Status [...] Lisa Broderick RN documented in this encounter Discharge Summaries * Shivam Alcantar MD - 07/17/2020 0821 EDT Neurosurgery Discharge Summary Primary Care Provider: Romario Hairston Attending Physician: Juan C Hoskins MD Admit Date: 07/16/2020 Discharge Date: 07/18/2020 Disposition: Home or self care Problems and Procedures Admitting Diagnosis: Seizure ([facility]) Discharge Diagnosis: Same Additional Problems Managed in the Hospital Active Hospital Problems Diagnosis Date Noted ??? *Seizure ([facility]) 07/16/2020 Resolved Hospital Problems No resolved problems to display. Principal Procedure: None Date: N/A Secondary Procedures: N/A Hospital Course Napoleon Loya is a 50 y.o. 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 Piña,02/16/20), and left autologous cranioplasty (Dr. Piña, 07/12/20) who presented as a transfer from [facility] after a tonic-clonic seizure at approximately 0930 on (07/16/20).??Loaded with 1 g of Keppra at OSH and head CT demonstrated ~8 mm extradural fluid collection with minimal midline shift. Transferredto [facility] for higher level of care. Neurology consulted for seizure management and recommended 1g Keppra BID until follow up with Neurology clinic. Per Dr. Piña's preference, 3 months. Exam stable on1g Keppra BID. No further seizure events. Discontinued from home lovenox given subdural collection.She is appropriate for safe discharge home with significant other. She will follow-up in neurosurgery clinic as previously scheduled with repeat head CT prior to restarting lovenox. Allergies and Immunizations Allergies Allergen Reactions ??? Citalopram Other reaction(s): increased anxiety ??? Duloxetine Other reaction(s): increased anxiety ??? Pregabalin Other reaction(s): dizziness ??? Zolpidem Other reaction(s): sleep walking with over 5 mg There is no immunization history on file for this patient. Transition of Care Plans Condition at Discharge Good Prognosis: good Assessment at Discharge Vital signs: Patient Vitals for the past 12 hrs: BP Resp Temp SpO2 O2 Device 07/17/20 0608 105/71 16 (!) 35.3 ??C (95.5 ??F) 95 % None 07/17/20 0126 122/78 17 (!) 34.9 ??C (94.8 ??F) 96 % None 07/16/20 2122 114/80 19 35.6 ??C (96.1 ??F) 98 % -- Brain: Anticoagulation: No, restart pending SDH stability Seizure medications: yes Keppra 1g BID until fu with neurology Steroids: no Test results still pending from this admission None Relevant Studies During Admission None Imaging Required Yes Modality: as previously scheduled with neurosurgery follow-up Last Lab Results at Discharge CBC: Lab Results Component Value Date WBC 5.40 07/17/2020 RBC 3.64 (L) 07/17/2020 HGB 10.7 (L) 07/17/2020 HCT 31.2 (L) 07/17/2020 MCV 86 07/17/2020 MCH 29.4 07/17/2020 MCHC 34.3 07/17/2020 PLT 253 07/17/2020 DIFFTYPE Auto 07/17/2020 Electrolytes: Lab Results Component Value Date NA 140 07/17/2020 K 4.0 07/17/2020 CL 102 07/17/2020 CO2 28 07/17/2020 HGB: Lab Results Component Value Date HGB 10.7 (L) 07/17/2020 Discharge Follow Up Upcoming Appointments Jul 27, 2020 11:40 Post Op Visit with Claus Piña MD [facility] (--) [address] [facility] [id number] Aug 08, 2020 13:00 Telemedicine Visit with Verenice Correa APRN [facility] - [facility] (--) [address] [facility] [id number] Oct 05, 2020 11:30 Telemedicine Visit 15 Mins with Evin Maria MD [facility] Hematology & Oncology - [facility] ([facility]) [address] [facility] [id number] Follow-up appointments and procedures Amb Consult/Follow Up Primary Care Physician Patient with recent seizure. Would recommend alternative to bupropion. Reason for Request: Referral for bupropion alternate therapy Authorizing Provider: Antonieta Pickett MD Amb Consult/Follow Up Neurosurgery Reason for Request: fu sp cranioplasty, pending lovenox restart Authorizing Provider: Antonitea Pickett MD Amb Consult/Follow Up Neurology Reason for Request: fu sp cranioplasty with subsequent focal seizure, fu 1 mo Authorizing Provider: Antonieta Pickett MD Follow-up labs and tests CT HEAD WO CONTRAST Complete by: Aug 01, 2020 (Approximate) Process Instructions: Creatinine drawn within 90 days is required for IV contrast for the followingrisk factors: High blood pressure, Age over 60, Diabetes and/or Renal Disease IV HYDRATION IS REQUIRED FOR PATIENTS WITH GFR (GLOMERULAR FILTRATION RATE) =< 30, RECEIVING IV CONTRAST. ORAL HYDRATION IS REQUIRED FOR PATIENTS WITH A GFR BETWEEN 31-59 RECEIVING IV CONTRAST. The following Diabetic medications (other than insulin) must be stopped the day of exam and 48 hours after administration of IV contrast for patients with a GFR =< 30: Glucophage, Glucovance, Metformin, Avandamet, Metaglip, , Riomet, Fortamet, Actoplus-met, Janumet, and Glumetza Authorizing Provider: Antonieta Pickett MD DYLAN ADAMS, MD 07/17/2020 8:21 Cosigned by Juan C Hoskins MD at 07/25/2020 16:56 EDT documented in this encounter Discharge Instructions * Discharge Instr - AVS First Page* Antonieta Pickett MD - 07/18/2020 9:02 EDT Don't take lovenox at home until follow up with neurosurgery in 2 weeks documented in this encounter Medications at Time [...] needed for Pain. Daily Max: 30 mg 25 Tab 07/24/2020 0 oxyCODONE (ROXICODONE) 5 mg immediate release tablet Take 1 Tab by mouth every 4 hours as needed for Pain. Daily Max: 30 mg 10 Tab 07/18/2020 0 oxyCODONE (ROXICODONE) 5 mg immediate release [...] needed for Pain. Daily Max: 30 mg 25 Tab 07/24/2020 07/27/2020 oxyCODONE (ROXICODONE) 5 mg immediate release tablet Take 1 Tab by mouth every 4 hours as needed for Pain. Daily Max: 30 mg 10 Tab 07/18/2020 07/20/2020 levETIRAcetam (KEPPRA) 1,000 mg tablet Take 1 Tab by mouth every 12 hours for 90 days. 180 Tab 07/18/2020 08/31/2020 Multivitamins with Minerals tablet tablet Take 1 Tab by mouth daily. 07/18/2020 08/05/2020 documented in this encounter Discharge Disposition Disposition Code Departure Means Destination Home or Self Assisted documented in this encounter Progress Notes * Rosalinda Smith RN - 07/18/2020 1125 EDT Initial Case Management/Social Work Assessment and Discharge Plan/Readmission Risk Assessment REASON FOR ADMISSION: Seizure ([facility]), S/p left cranioplasty (Dr. Piña, 07/12/20) Hx of: -Previous venous thrombosis complicated by hemorrhage requiring craniectomy and evacuation of IPH (02/16/20, Dr. Piña) -Anxiety/depression -tobacco use disorder Patient understands reason for admission: Yes PATIENT CONTACT INFO VERIFIED: Yes Ever Linda (Friend) [phone] (H) Lucille Eduard (Sister) [phone] (M) PATIENT ADDRESS VERIFIED: Yes Type of housing (single family, condo, apartment, snf, single room occupancy, [facility] funded hotel room, group half-way) - Apartment Who does the patient live with? Ever, SO Does the patient have access to their own bedroom/bathroom/kitchen - or is it shared with others? shared Name of housing complex (ex [employer] [facility], [facility], etc)- NA LIVING ARRANGEMENTS AND ACCESSIBILITY ISSUES: Living Arrangements: Spouse / significant other, Apartment Levels: 1 Stairs to enter: 1 Handicap access: Grab bars Bathroom located on bedroom level?: Yes What in home social supports are available to the patient? Spouse / significant other, Family member(s) Is 24/ care available? Yes, when Ever not available, patient's siblings or friends help ADVANCED DIRECTIVES, POA &/or COLST IN PLACE: Healthcare Directive: No, patient does not have advance directive for healthcare treatment Information Provided on Healthcare Directives: No Information on Healthcare Directives Requested: No DIRECTIVES FOR FINANCES: NA TRANSPORTATION: Transportation: Family, Ever CULTURAL, CHRISTIAN and/or LANGUAGE factors affecting health care/discharge planning: Spiritual/Cultural Requests: None Any factors affecting health care/discharge planning?: No Insurance in Place: Yes Medical Insurance: Yes Type of insurance: Medicaid Medicaid Type: Community Referred to patient financial services: No Nutrition: Not addressed DISCHARGE RISK ASSESSMENT: Repeat hospitalizations/ED visits;Requires assistance with ADLs/IADLs;Requires assistance with medication management;Polypharmacy, > 7 medications Total # selected above: Score of 2 - 4: This patient is at MODERATE RISK for re-hospitalization Tentative plan to address the risk of re-hospitalization for those at HIGH MODERATE RISK: Bring risk factors to attention of team to be addressed;Refer to skilled home care services RAPT TOOL: Age: 50-65 Gender: Female Ambulation distance: Housebound most of the time Gait device: Crutch/Walker Community Services: Two or more times a week Will you live with someone who will care for you?: Yes RAPT Tool Score: 6 Patient expects to be discharged to: Home with multimedia journalist family support and services SBIRT: SASQ (Single Alcohol Screening Question) How many times in the past year have you had 4 or more drinks in a single day?: Never How many times in the past year have you used an illegal drug or used a prescription medication fornon-medical reasons?: Never Intervention in place/initiated?: No, not indicated FUNCTIONAL STATUS: Aphasia, needs assist with activities Activities patient requires assistance: Taking Medications, Food preparation/shopping, Bathing Assistive Device: Grab bars, Cane, Front wheel walker, Shower chair COMMUNITY RESOURCES/SUPPORTS: Primary Care Provider: Romario Hairston PCP Verified: Yes Specialists: Neurology Type of Home Health Services: Home PT/OT, Nurse visit, Other (Comment) DME Provider: Pharmacy: [id number] - [address] AT SEC OF [facility] & [address] [phone] Home Health: [facility] [phone] Other: POST HOSPITAL TRANSITION PLAN: CM met with patient just prior to discharge. She lives in a one-story apartment with her SO, Ever, who she describes as very supportive. When Ever not available to be with her, her siblings or friends help as she reports she cannot be alone at this time. Patient with prior PT, OT nsg & MARKETING DIRECTOR ASSISTED LIVING services with [id number]. These will be resumed at discharge. Home today with continued family support. ROSALINDA SMITH, RN [phone] ROSALINDA SMITH RN 07/18/2020 13:45 * Kevin Rinaldi MD - 07/18/2020 0428 EDT Neurosurgery Progress Note Problems/ Seizure S/p left cranioplasty (Dr. Piña, 07/12/20) ?? Hx of: -Previous venous thrombosis complicated by hemorrhage requiring craniectomy and evacuation of IPH (02/16/20, Dr. Piña) -Anxiety/depression -tobacco use disorder Procedures/ None during admission 24/ Neurology signed off MOHSEN overnight Subjective/ No complaints. Objective/ Blood pressure 113/67, pulse 88, temperature (!) 35.5 ??C (95.9 ??F), temperature source Tympanic, resp. rate 16, height 162.6 cm (64), weight 80 kg (176 lb 4.8 oz), SpO2 95 %. Temp: [34.9 ??C (94.8??F)-37 ??C (98.6 ??F)] BP: (105-117)/(67-88) Exam: GCS14 (E4V4M6) Alert, Attentive Oriented to name, 2020, not to place Follows commands x4, slower to activate on the right side Extraocular movements intact Pupils equal, reactive Tongue midline UE Strength - LEFT Bicep (C5, 6) 5/5 Tricep (C6, 7) 5/5 Shearer Helper (C8) 5/5 UE Strength - RIGHT - slower to activate Bicep (C5, 6) 5/5 Tricep (C6, 7) 5/5 Shearer Helper (C8) 5/5 LE Strength - LEFT Iliopsoas(L2, 3) 5/5 Quadricep (L3, 4) 5/5 Gastroc (S1, S2) 5/5 Anterior Tibialis (L4, 5) 5/5 LE Strength - RIGHT - slower to activate Iliopsoas(L2, 3) 5/5 Quadricep (L3, 4) 5/5 Gastroc (S1, S2) 5/5 Anterior Tibialis (L4, 5) 5/5 Studies/ Na/K/Cl/CO2: 140/4.0/102/28 (07/17 644) WBC/Hgb/Hct/Plts: 5.40/10.7/31.2/253 (07/17 644) BUN/Cr/glu/ALT/AST/amyl/lip: 15/0.71/--/--/--/--/-- (07/17 644) Assessment/ Napoleon Cindy is a 50 y.o. female is a 50 y.o. 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 Piña, 02/16/20), and left autologous cranioplasty (Dr. Piña, 07/12/20) who presents as a transfer from [facility] after a tonic-clonic seizure at approximately 0930. Loaded with 1 g of Keppra at OSH and head CT demonstrated ~8 mm extradural fluid collection with minimal midline shift. Exam stable on 1g Keppra BID. No further seizure events. Likely dispo today. Plan/ No acute neurosurgical intervention Floor for observation Pain control Q4h neuro checks, vitals, I&O Regular diet Keppra 1g BID - will obtain duration of treatment from Neurology Appreciate Neurology recommendations Normotension SCD/ARAM for DVT ppx Hold anticoagulants, antiplatelet agents Likely dispo today Kevin Rinaldi MD Neurosurgery resident 07/18/2020 4:28 Page [id number] with questions Cosigned by Claus Piña MD at 07/18/2020 8:55 EDT Associated attestation - Claus Piña MD - 07/18/2020 0855 EDT Images from the original note were not included. Attestation statement: I saw and examined the patient with the resident on 07/18/2020. I agree with the findings and plan of care documented in the resident's note. Pt returned with a generalized seizure. Appears at baseline at least. CT shows an increase in epidural or subdural fluid, despite a central tacking stitch. This collection may be subdural and irritating to the brain, leading to the seizure. I think this could be due to the full dose anticoagulation. Pt can be DC on no anticoagulation and we will follow closely. Claus Piña MD FACS 07/18/2020 at 8:49 * Kevin Rinaldi MD - 07/17/2020 0554 EDT Neurosurgery Progress Note Problems/ Seizure S/p left cranioplasty (Dr. Piña, 07/12/20) ?? Hx of: -Previous venous thrombosis complicated by hemorrhage requiring craniectomy and evacuation of IPH (02/16/20, Dr. Piña) -Anxiety/depression -tobacco use disorder Procedures/ None during admission 24/ Admitted for observation Neurology consulted - rec 1g BID MOHSEN overnight Subjective/ No complaints. Objective/ Blood pressure 122/78, temperature (!) 34.9 ??C (94.8 ??F), temperature source Tympanic, resp. rate17, height 162.6 cm (64), weight 80 kg (176 lb 4.8 oz), SpO2 96 %. Temp: [34.9 ??C (94.8 ??F)-37 ??C (98.6 ??F)] BP: (100-122)/(65-100) Exam: GCS14 (E4V4M6) Alert, Attentive, conversant Baseline aphasia Can not name pen or function Oriented to name, not place or time Follows commands x4, slower to activate on the right side Extraocular movements intact Pupils equal, reactive Tongue midline UE Strength - LEFT Bicep (C5, 6) 5/5 Tricep (C6, 7) 5/5 Shearer Helper (C8) 5/5 UE Strength - RIGHT - slower to activate Bicep (C5, 6) 4/5 (limited 2/2 shoulder pain) Tricep (C6, 7) 5/5 Shearer Helper (C8) 5/5 LE Strength - LEFT Iliopsoas(L2, 3) 5/5 Quadricep (L3, 4) 5/5 Gastroc (S1, S2) 5/5 Anterior Tibialis (L4, 5) 5/5 LE Strength - RIGHT - slower to activate Iliopsoas(L2, 3) 5/5 Quadricep (L3, 4) 5/5 Gastroc (S1, S2) 5/5 Anterior Tibialis (L4, 5) 5/5 Studies/ Na/K/Cl/CO2: 140/4.1/99/17 (07/16 1000) WBC/Hgb/Hct/Plts: --/12.3/38.8/-- (07/16 1000) BUN/Cr/glu/ALT/AST/amyl/lip: 12/0.94/118/--/--/--/-- (07/16 1000) Assessment/ Napoleon Cindy is a 50 y.o. female is a 50 y.o. 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 Piña, 02/16/20), and left autologous cranioplasty (Dr. Piña, 07/12/20) who presents as a transfer from [facility] after a tonic-clonic seizure at approximately 0930. Loaded with 1 g of Keppra at OSH and head CT demonstrated ~8 mm extradural fluid collection with minimal midline shift. Exam stable on 1g Keppra BID. No further seizure events. Plan/ No acute neurosurgical intervention Floor for observation Pain control Q4h neuro checks, vitals, I&O Regular diet Keppra 500 mg BID Appreciate Neurology recommendations Normotension SCD/ARAM for DVT ppx Hold anticoagulants, antiplatelet agents Likely dispo today Kevin Rinaldi MD Neurosurgery resident 07/17/2020 5:54 Page 1272 with questions Cosigned by Juan C Hoskins MD at 07/17/2020 9:53 EDT Associated attestation - Juan C Hoskins MD - 07/17/2020 0961 EDT Neurosurgery Staff I have seen and examined this patient. I reviewed the patient's history and exam with the Neurosurgery Resident. I agree with the findings, assessment and treatment plan as documented in the resident's note. No further seizures BT documented in this encounter H&P Notes * Shivam Alcantar MD - 07/16/2020 1349 EDT Neurosurgery H&P Problems/ Seizure S/p left cranioplasty (Dr. Piña, 07/12/20) Hx of: -Previous venous thrombosis complicated by hemorrhage requiring craniectomy and evacuation of IPH (02/16/20, Dr. Piña) -Anxiety/depression -tobacco use disorder Anticoagulation or Antiplatelet use: Lovenox 40 mg BID HPI: Napoleon Loya is a 50 y.o. 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 Piña, 02/16/20), and left autologous cranioplasty (Dr. Piña, 07/12/20) who presents as a transfer from [facility] after a tonic-clonic seizure at approximately 0930. Her significant other, Ever, is at the beside and provides history of event. He states that Napoleon was doing well after discharge and has resume lovenox 40 mg BID;however, he noticed right arm spasms yesterday. He treated this with Robaxin and says this helped. This morning, he reports that patient was sitting on couch when she began to spasm again with neck twisting and toe curling. He reports that she bit her tongue as well. This event lasted 1-2 minutes. Significant other, Ever, denies any LOC. He reports that patient was groggy after event. EMS was called and patient was taken to OSH where she was loaded with 1g of Keppra and had a head CT that demonstrated an extradural fluid collection, ~8 mm at widest point, with 3 mm rightward shift. She was subsequently transferred to [facility] for higher level of care. She presented to [facility] ED at her neurologic baseline, which is GCS14 with mixed aphasia. Endorses incisional headache and right shoulder pain (chronic frozen shoulder), no blurred or double vision, no nausea/vomiting, baseline mixed aphasia, no numbness/tingling, no focal weakness, no sleepiness. All available outside records were reviewed. Did patient have a stroke or TIA? PMH: Past Medical History: Diagnosis Date ??? Exercise involving walking flat surfaces ??? History of general anesthesia ??? Left-sided nontraumatic intracerebral hemorrhage (HCC-CMS) 03/02/2020 Status post decompressive hemicraniectomy ??? Shoulder joint pain right PSH: History reviewed. No pertinent surgical history. Problem List: Patient Active Problem List Diagnosis ??? Back [...] state (HCC-CMS) ??? History of cranial surgery ROS: A 10 point ROS was completed and pertinent positives were mentioned in the HPI and ALL OTHERS ARE NEGATIVE FH: Family History Problem Relation Age of Onset ??? Cancer Mother 72 Liver ??? Cancer Father 79 mesothelioma ??? Cancer Maternal Grandmother 80 SH: Social History Substance and Sexual Activity Alcohol Use Yes Social History Tobacco Use Smoking Status Former Smoker ??? Packs/day: 0.25 ??? Years: 15.00 ??? Pack years: 3.75 Smokeless Tobacco Never Used ALL: Allergies Allergen Reactions ??? Citalopram Other reaction(s): increased anxiety ??? Duloxetine Other reaction(s): increased anxiety ??? Pregabalin Other reaction(s): dizziness ??? Zolpidem Other reaction(s): sleep walking with over 5 mg MEDS: (Not in a hospital admission) EXAM: Blood pressure 118/78, temperature 37 ??C (98.6 ??F), temperature source Oral, resp. rate 17, SpO2 97 %. GCS14 (E4V4M6) Alert, Attentive, conversant Baseline aphasia Can not name pen or function Oriented to name, not place or time Follows commands x4 Extraocular movements intact Pupils equal, reactive Face symmetric at rest and with activation, complete eye closure bilaterally Facial sensation grossly intact in V1-3 distributions bilaterally; although she states she can feelit more on the left Tongue midline UE Strength - LEFT Bicep (C5, 6) 5/5 Tricep (C6, 7) 5/5 Shearer Helper (C8) 5/5 UE Strength - RIGHT Bicep (C5, 6) 4/5 (limited 2/2 shoulder pain) Tricep (C6, 7) 5/5 Shearer Helper (C8) 5/5 Endorses that sensation marginally reduced on right LE Strength - LEFT Iliopsoas(L2, 3) 5/5 Quadricep (L3, 4) 5/5 Gastroc (S1, S2) 5/5 Anterior Tibialis (L4, 5) 5/5 LE Strength - RIGHT Iliopsoas(L2, 3) 5/5 Quadricep (L3, 4) 5/5 Gastroc (S1, S2) 5/5 Anterior Tibialis (L4, 5) 5/5 Endorses that sensation marginally reduced on right HEENT: Left craniotomy incision CDI, no drainage or erythema CV: regular; well-perfused PULM: breathing comfortably on room air LABS: Laboratory studies independently reviewed. WBC/Hgb/Hct/Plts: --/12.3/38.8/-- (07/16 1000) Na/K/Cl/CO2/BUN/Creat/C Bili/UC Bili:140/4.1/99/17/12/0.94/--/-- (07/16 1000) IMAGING: Imaging studies independently reviewed. CT Head: 6 mm extradural fluid collection which appears to be mostly subacute blood with minimal rightward midline shift. No acute hemorrhage. No hydrocephalus. Assessment: Napoleon Loya is a 50 y.o. 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 Piña, 02/16/20), and left autologous cranioplasty (Dr. Piña, 07/12/20) who presents as a transfer from [facility] after a tonic-clonic seizure at approximately 0930. Loaded with 1 g of Keppra at OSH and head CT demonstrated ~8 mm extradural fluid collection with minimal midline shift. On exam, she is at her neurological baseline persignificant other, Ever, at the bedside and clinically stable. Will admit for observation and consult neurology for any further seizure management. Plan: No acute neurosurgical intervention Floor for observation Pain control Q4h neuro checks, vitals, I&O Regular diet Keppra 500 mg BID Consult neurology, appreciate recommendations Further seizure management per neurology Normotension SCD/ARAM for DVT ppx Hold anticoagulants, antiplatelet agents Patient's status and plan discussed with senior neurosurgery resident Silva Hylton DO. SHIVAM ALCANTAR MD Neurosurgery resident 07/16/2020 13:50 Page [id number] with questions Cosigned by Juan C Hoskins MD at 07/17/2020 9:52 EDT Associated attestation - Juan C Hoskins MD - 07/17/2020 0952 EDT Neurosurgery Staff I have seen and examined this patient. I reviewed the patient's history and exam with the Neurosurgery Resident. I agree with the findings, assessment and treatment plan as documented in the resident's note. Admitted for seizure control Keppra given CT shows small amount of fluid under bone flap --unlikely empyema BT documented in this encounter Consult Notes * Avis Hoff MD - 07/17/2020 1050 EDT Neurology Consultation Progress Note Date of Service: 07/17/2020 Reason for Consult/Chief complaint: seizure management Subjective: She is sitting in chair. Denies any pain, dizziness, weakness or sensory deficit. Complaints of mild headache. Review of Systems: A ten point review of systems was performed. Pertinent positives are listed above, all others are negative. PMH PSH Past Medical History: Diagnosis Date ??? Exercise involving walking flat surfaces ??? History of general anesthesia ??? Left-sided nontraumatic intracerebral hemorrhage (HCC-CMS) 03/02/2020 Status post decompressive hemicraniectomy ??? Shoulder joint pain right History reviewed. No pertinent surgical history. Social History Family History Social History Tobacco Use ??? Smoking status: Former Smoker Packs/day: 0.25 Years: 15.00 Pack years: 3.75 ??? Smokeless tobacco: Never Used Substance Use Topics ??? Alcohol use: Yes Family History Problem Relation Age of Onset ??? Cancer Mother 72 Liver ??? Cancer Father 79 mesothelioma ??? Cancer Maternal Grandmother 80 Medications Current Facility-Administered Medications Medication Route Frequency ??? acetaminophen (TYLENOL) tablet 650 mg oral Q4H PRN Or ??? acetaminophen (TYLENOL) solution unit dose cup 650 mg per ng tube Q4H PRN Or ??? acetaminophen (TYLENOL) suppository 650 mg rectal Q4H PRN ??? calcium carbonate (TUMS) 200 mg calcium (500 mg) per chewable tablet tablet,chewable 1 Tab [id number] PRN ??? docusate sodium (COLACE) capsule 100 mg oral BID ??? hydrALAzine (APRESOLINE) 10 mg in sodium chloride (NS) 0.9 % 50 mL IVPB intravenous Q1H PRN ??? levETIRAcetam (KEPPRA) tablet 1,000 mg oral Q12H Or ??? levETIRAcetam (KEPPRA) 1,000 mg in sodium chloride (NS) 0.9 % 100 mL IVPB intravenous Q12H ??? melatonin tablet 5 mg oral QHS ??? methocarbamoL (ROBAXIN) tablet 750 mg oral Q8H PRN ??? Multivitamins with Minerals tablet 1 Tab oral DAILY ??? ondansetron (ZOFRAN-ODT) disintegrating tablet 4 mg oral Q4H PRN ??? oxyCODONE (ROXICODONE) immediate release tablet 5-10 mg oral Q4H PRN ??? pantoprazole (PROTONIX) tablet 40 mg oral DAILY ??? polyethylene glycol 3350 (MIRALAX) packet 17 g oral Daily PRN ??? QUEtiapine (SEROQUEL) tablet 50 mg oral QHS ??? [START ON 07/18/2020] senna (SENOKOT) tablet 1 Tab oral BID Allergies/Adverse Reactions Allergies Allergen Reactions ??? Citalopram Other reaction(s): increased anxiety ??? Duloxetine Other reaction(s): increased anxiety ??? Pregabalin Other reaction(s): dizziness ??? Zolpidem Other reaction(s): sleep walking with over 5 mg Objective/Physical Exam: VS: Temp: [34.9 ??C (94.8 ??F)-37 ??C (98.6 ??F)] , Pulse: --, Resp: [16-28] , BP: (100-122)/(65-100) , SpO2: [93 %-100 %] Physical exam: GEN: lying in bed, no acute distress HEENT: MMM; L cranium incision site c/d/i Lungs: No increased WOB Ext: Warm and well perfused Neurological exam: Mental Status: Oriented to person. Receptive aphasia. Not always able to follow commands. Cannot repeat or name objects. Occasional paraphasic errors. Cranial Nerves: II: Pupils equal and reactive. Visual fam intact except for RUQ, exam limited by patient. III, IV, : EOM intact. No gaze preference. V: Normal sensation over V1/V2/V3 distrubution bilaterally VII: No facial asymmetry. No flattening of nasolabial folds. VIII: Hearing decreased on right controlled to left. IX, X: Normal palatal elevation. No uvular deviation. XI: 5/5 shoulder shrug bilaterally. XII: Tongue protrusion midline. Motor: Strength: Deltoid Triceps Biceps Hip flex Knee ext Knee flex Plantarflex Dorsiflex Left 5 5 5 5 5 5 5 5 Right deferred 5 5 5 5 5 5 5 Reflexes: Biceps Brachiradialis Patella Achilles Plantar Left 2+ 2+ 2+ 1+ Flexor Right 2+ 3+ 2+ 1+ Flexor Sensory: Light touch intact in fingers and toes. Coordination: Fine finger movements are intact. There are no abnormal or extraneous movements. Gait: deferred Medications Reviewed in [facility]. Labs Reviewed in [facility]. Recent Labs 07/16/20 1000 07/17/20 0644 NA 140 140 K 4.1 4.0 CL 99 102 CO2 17* 28 BUN 12 15 CREATININE -- 0.71 Glucose 118 Alk phos 187 CRP 69.5 Lactic acid 0.8 Imaging Reviewed in [facility] CT head noncontrast 07/16/20: 1. 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 2. Skin ghassan over the left temporoparietal scalp and left paramedian frontal scalp. 3. 6 mm extradural fluid collection which appears to be mostly subacute blood but small amount of acute blood along with small postoperative air in the region. This is extra-axial and may represent subdural collections. 4. 3 mm midline shift to the right, which may be secondary to postoperative subdural hematoma. Previously there was 4 mm midline shift to the right from the left intracerebral hematomas. 5. Prominent encephalomalacia in the left temporal lobe and adjacent frontal/parietal lobe in the region previous occupied by intracerebral hematomas. 6. There is a high density partially calcified curvilinear membrane covering the brain between the extra-axial fluid collection and the left ruben calvarium which could represent Kavon or partially calcified dura. Assessment: 50 y.o. female with history significant for anxiety/depression, tobacco use disorder, postconcussive syndrome, and cerebral venous thrombosis complicated by intraparenchymal hemorrhage requiring craniectomy with recent cranioplasty. Story sounds consistent with provoked seizure from development of post-op fluid collection. She has returned to her baseline otherwise. We recommend continuing Keppra1 gr BID. Recommendations: - cont Keppra to 1000mg BID - No need for EEG or further imaging from neurologic perspective - Neurology is signing off Thanks for involving us in patient's care. Avis Hoff MD PGY2 Neurology #[id number] Cosigned by Maynor Guevara MD at 07/17/2020 17:43 EDT * Tayo Ervin MD - 07/16/2020 1532 EDT Neurology Consultation Note Date of Service: 07/16/2020 Reason for Consult/Chief complaint: seizure management HPI: Napoleon Loya is a 50 y.o. female with medical history notable for anxiety/depression, tobacco use disorder, postconcussive syndrome, and recent cerebral venous thrombosis complicated by intraparenchymal hemorrhage requiring craniectomy. Napoleon presented to [facility] in 01/2020 for headache and was found to have a significant left temporaland frontal lobe intracranial hemorrhage with 2 mm shift and hypertension at 170/100. She was transferred to [facility] where she was seen by neurosurgery and neurology. CT angiogram and venogram of head showed venous thrombosis in the left internal jugular vein, sigmoid and transverse sinus as well as the vein of Kristen and increased hemorrhage. Hemorrhage continued to expand and she was taken urgently to the operating room where a left frontal, temporal, and parietal craniotomy and evacuation of int raparenchymal hemorrhage was performed on 02/15. She was discharged to acute rehab following this admission. On 07/12/20 she was readmitted to [facility] for left-sided autologous cranioplasty. Post-op head CT showed no acute intracranial hemorrhage. She was discharged post-op day two with well controlled pain. Napoleon presented this morning to [facility] with a new onset seizure and was transferred to [facility]. Neurology is consulted for recommendations for seizure management. At [facility], she was administered 1 g of keppra before transfer to [facility]. In the ED at [facility] she was given 50 mcg fentanyl for pain at her incision site. History is obtained from her partner Ever due to aphasia. He states that yesterday Napoleon had a small tremor in her right hand. He gave her methocarbamol to help with this and it went away. This morning she had the tremor again and he gave her methocarbamol and tylenol. He says this did not help and it started to spread and become a seizure, which he describes as her right arm folded in against her chest and her head turned to one side and she was breathing through her mouth like a fish with her eyes rolled back in her head. This lasted for two minutes, but to Napoleon it felt like five. Napoleon says that she remembers the shaking and then she fell asleep. She is back to her baseline now per Ever and has receptive and expressive aphasia. Review of Systems: A ten point review of systems was performed. Pertinent positives are listed above, all others are negative. PMH PSH Past Medical History: Diagnosis Date ??? Exercise involving walking flat surfaces ??? History of general anesthesia ??? Left-sided nontraumatic intracerebral hemorrhage (HCC-CMS) 03/02/2020 Status post decompressive hemicraniectomy ??? Shoulder joint pain right History reviewed. No pertinent surgical history. Social History Family History Social History Tobacco Use ??? Smoking status: Former Smoker Packs/day: 0.25 Years: 15.00 Pack years: 3.75 ??? Smokeless tobacco: Never Used Substance Use Topics ??? Alcohol use: Yes Family History Problem Relation Age of Onset ??? Cancer Mother 72 Liver ??? Cancer Father 79 mesothelioma ??? Cancer Maternal Grandmother 80 Medications Current Facility-Administered Medications Medication Route Frequency ??? acetaminophen (TYLENOL) tablet 650 mg oral Q4H PRN Or ??? acetaminophen (TYLENOL) solution unit dose cup 650 mg per ng tube Q4H PRN Or ??? acetaminophen (TYLENOL) suppository 650 mg rectal Q4H PRN ??? calcium carbonate (TUMS) 200 mg calcium (500 mg) per chewable tablet tablet,chewable 1 Tab [id number] PRN ??? docusate sodium (COLACE) capsule 100 mg oral BID ??? hydrALAzine (APRESOLINE) 10 mg in sodium chloride (NS) 0.9 % 50 mL IVPB intravenous Q1H PRN ??? levETIRAcetam (KEPPRA) tablet 500 mg oral Q12H Or ??? levETIRAcetam (KEPPRA) 500 mg in sodium chloride (NS) 0.9 % 100 mL IVPB intravenous Q12H ??? methocarbamoL (ROBAXIN) tablet 750 mg oral Q8H PRN ??? Multivitamins with Minerals tablet 1 Tab oral DAILY ??? oxyCODONE (ROXICODONE) immediate release tablet 5-10 mg oral Q4H PRN ??? [START ON 07/18/2020] senna (SENOKOT) tablet 1 Tab oral BID Current Outpatient Medications Medication ??? acetaminophen (TYLENOL) 325 mg tablet ??? acetaminophen (TYLENOL) 500 mg tablet ??? bupropion HCl (WELLBUTRIN XL ORAL) ??? docusate sodium (COLACE) 100 mg capsule ??? enoxaparin (LOVENOX) 40 mg/0.4 mL injection ??? enoxaparin (LOVENOX) 60 mg/0.6 mL injection ??? melatonin 5 mg tablet ??? methocarbamoL (ROBAXIN) 500 mg tablet ??? ondansetron (ZOFRAN-ODT) 4 mg disintegrating tablet ??? oxyCODONE (ROXICODONE) 5 mg immediate release tablet ??? pantoprazole (PROTONIX) 20 mg tablet ??? polyethylene glycol (MIRALAX) 17 gram/dose powder ??? QUEtiapine (SEROQUEL) 50 mg tablet ??? senna (SENOKOT) 8.6 mg tablet Allergies/Adverse Reactions Allergies Allergen Reactions ??? Citalopram Other reaction(s): increased anxiety ??? Duloxetine Other reaction(s): increased anxiety ??? Pregabalin Other reaction(s): dizziness ??? Zolpidem Other reaction(s): sleep walking with over 5 mg Objective/Physical Exam: VS: Temp: [37 ??C (98.6 ??F)] , Pulse: --, Resp: [17-28] , BP: (100-118)/(65-78) , SpO2: [93 %-100 %] Physical exam: GEN: lying in bed, no acute distress HEENT: MMM; L cranium incision site c/d/i Lungs: No increased WOB Ext: Warm and well perfused Neurological exam: Mental Status: Oriented to person. Not always able to follow commands. Cannot repeat or name objects. Occasional paraphasic errors. Cranial Nerves: II: Pupils equal and reactive. Visual fam intact except for RUQ, exam limited by patient. III, IV, : EOM intact. No gaze preference. V: Normal sensation over V1/V2/V3 distrubution bilaterally VII: No facial asymmetry. No flattening of nasolabial folds. VIII: Hearing decreased on right controlled to left. IX, X: Normal palatal elevation. No uvular deviation. XI: 5/5 shoulder shrug bilaterally. XII: Tongue protrusion midline. Motor: Strength: Deltoid Triceps Biceps Hip flex Knee ext Knee flex Plantarflex Dorsiflex Left 5 5 5 5 5 5 5 5 Right deferred 5 5 5 5 5 5 5 Reflexes: Biceps Brachiradialis Patella Achilles Plantar Left 2+ 2+ 2+ 1+ Flexor Right 2+ 3+ 2+ 1+ Flexor Sensory: Light touch intact in fingers and toes. Coordination: Fine finger movements are intact. There are no abnormal or extraneous movements. Gait: deferred Medications Reviewed in [facility]. Labs Reviewed in [facility]. Recent Labs 07/16/20 1000 NA 140 K 4.1 CL 99 CO2 17* BUN 12 Glucose 118 Alk phos 187 CRP 69.5 Lactic acid 0.8 Imaging Reviewed in [facility] CT head noncontrast 07/16/20: 1. 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 2. Skin ghassan over the left temporoparietal scalp and left paramedian frontal scalp. 3. 6 mm extradural fluid collection which appears to be mostly subacute blood but small amount of acute blood along with small postoperative air in the region. This is extra-axial and may represent subdural collections. 4. 3 mm midline shift to the right, which may be secondary to postoperative subdural hematoma. Previously there was 4 mm midline shift to the right from the left intracerebral hematomas. 5. Prominent encephalomalacia in the left temporal lobe and adjacent frontal/parietal lobe in the region previous occupied by intracerebral hematomas. 6. There is a high density partially calcified curvilinear membrane covering the brain between the extra-axial fluid collection and the left ruben calvarium which could represent Kavon or partially calcified dura. Assessment: 50 y.o. female with history significant for anxiety/depression, tobacco use disorder, postconcussive syndrome, and cerebral venous thrombosis complicated by intraparenchymal hemorrhage requiring craniectomy with recent cranioplasty. Story sounds consistent with provoked seizure from development of post-op fluid collection. She has returned to her baseline otherwise. Recommendations: - Increase Keppra to 1000mg BID - No need for EEG or further imaging from neurologic perspective Staffed with Dr. Guevara. Edith Martínez MS3 Resident Attestation: I was present with the medical student for the history, physical exam, medical decision making documented by him/her. I have edited the student note as appropriate. Tayo Ervin MD PGY-2 Neurology #[id number] 07/16/2020 16:39 Cosigned by Maynor Guevara MD at 07/17/2020 17:42 EDT Associated attestation - Maynor Guevara MD - 07/17/2020 1742 EDT Attestation statement: I saw and examined the patient with the resident/fellow. I agree with the findings and plan of care documented in the resident's/fellow's note. Also patient has receptive aphasia and would benefit from speech Rx. documented in this encounter ED Notes * Amy Javed RN - 07/16/2020 1445 EDT Per Neuro pt ok for PO. [employer] ordered room service for pt. Pt's boyfriend at bedside. Pt in NAD. VSS. Will continue to monitor. * Amy Javed RN - 07/16/2020 1406 EDT Neuro at bedside. * Daniel Jerez - 07/16/2020 1329 EDT TCALL: NAPOLEON LOYA. 1970. RECENT CRANIOPLASTY BY BHAVIN. JEREMIAS SINUS THROMBOSIS. NEW ONSETSEIZURE. NEW BLOOD WITH SHIFT. ON LOVENOX. GETTING PROTAMINE. PLEASE PAGE NS UPON ARRIVAL. NOTE TAKEN BY Yassine GEORGES. (LMP) * Jaylyn Georges MD - 07/16/2020 1325 EDT This patient received an evaluation and medical screening exam for emergent medical conditions at the [facility] on 07/16/2020 Scribe attestation: This documentation is recorded by Jeny Smith acting as Scribe under the direction and presence of Jaylyn Georges MD. Jaylyn Georges MD: I personally performed the services recorded by the scribe in my presence.I confirm the scribe's documentation has been reviewed by me to accurately and completely record mywork, treatment, procedures, and medical decision making. Chief Complaint Seizures HPI Napoleon Loya is a 50 y.o. female with PMH including left-sided nontraumatic intracerebral hemorrhage, cerebral venous thrombosis, bran herniation, cerebral edema, and venous thrombosis complicated by IPH requiring craniectomy on 02/15, who was transferred to the ED from [facility] for an evaluation ofseizures. The patient was discharged from the hospital on 07/12 s/p left sided autologous cranioplasty. The patient presented to [facility] today due to concern for a new onset seizure today. Per review of her records she has had no reversal of her anticoagulation. Interval changes were seen on CT imaging. Per the patient's significant other, the patient was having a few days of spasms and then today had an episode of seizure-like activity. He states the patient is at her neurologic baseline at this time. The patient endorses pain to her surgical site and a headache at this time. Per review of the patient's records she was administered 1 g of keppra prior to arrival. History was provided by: the patient, her significant other, and medical records Patient's pertinent PMH, FH, SH were reviewed and updated PRN. ROS A 10 point review of systems has been performed and is otherwise negative except as noted in the HPI. Physical Exam Vital Signs Temp: 37 ??C (98.6 ??F) Temp src: Oral Heart Rate: 97 BPM Resp: 28 SpO2: 100 % BP: 100/65 BP MAP: 77 mm Hg Nursing notes and vital signs were reviewed. NAD, confused. Grabbing her head. Head: Atraumatic ENT: Moist mucous membranes Neck: Ranging cervical spine spontaneously Pulm: No respiratory distress Extremities: No deformities; moving all extremities spontaneously Skin: No overt rashes on exposed skin Neuro: Mentating appropriately; speech is fluent; facial musculature is symmetrical Psych: Appropriate mood and affect Laboratory Results Labs Reviewed - No data to display Data Interpretation None Procedures Procedures None ED Course/Medical Decision Making A medical screening was performed. The patient is a 50 y.o. female with a history of eft-sided nontraumatic intracerebral hemorrhage, cerebral venous thrombosis, bran herniation, cerebral edema, and venous thrombosis complicated by IPH requiring craniectomy on 02/15, s/p left sided autologous cranioplasty on 07/12 who presents to the ED in transfer from [facility] for evaluation of a seizure. Physical exam was significant for confusion. The patient was grabbing her head. (1345) Neurosurgery was consulted. They agreed to come and evaluate the patient. (1403) The patient was administered 50 mcg fentanyl for her pain. Neurology was consulted for management of the patient's antiepileptics. The patient was admitted to Neurosurgery under the care of Dr. Hoskins. While under my care in the Emergency Department, the patient's pain was managed to an adequate level weighing risk vs. benefit of medication. Clinical Impression Final diagnoses: Seizure ([facility]) Disposition Admitted The patient's pain was managed to an adequate level weighing risk vs. benefit of further medications. Any further pain treatment will be at the discretion of the provider following up with the patient based on their clinical assessment. * Amy Javed RN - 07/16/2020 1316 EDT Pt seen at [facility] for left sided autologous cranioplasty. Pt's baseline, mixed aphasia but able to communicate basic needs. Pt transferred from [facility]. Pt states she had a small seizure this am. Pt had no LOC and remembers the event. According to EMS report pt's rectal temp was 100.3 f. Pt is currently afebrile. documented in this encounter Miscellaneous Notes * Plan of Care - Juanis Roach RN - 07/18/2020 1125 EDT Problem: Daily Care Plan Goals Goal: Care Plan Documentation Outcome: Completed Nursing Discharge Note D: Patient noted with discharge orders to: Home. A: Prescriptions provided to patient. Reviewed discharge instructions and prescriptions with Patient IV d/c'd. Belongings collected and sent home with patient. R: Patient and Family verbalized understanding of discharge instructions and denied further questions. JUANIS ROACH RN 07/18/2020 12:01 * Plan of Care - Brandon Guerra RN - 07/18/2020 0611 EDT Data: Patient c/o pain in right shoulder from known frozen shoulder unable to use numeric rating scale but stated it hurt a whole lot. Action: Medicated with PRN tylenol and oxycodone, see eMar. Offered repositioning and ice. Response: Patient was able to fall back asleep after pain medication administration. Will continue to monitor. BRANDON GUERRA RN 07/18/2020 6:11 * Plan of Care - Concha Munoz RN - 07/17/2020 1909 EDT Data: HD # 1 for seizure activity. A/O x 2 Aphasic.pt c/o head incisional pain x 3. [place] intact,incision is clean.. No visual changes. Action: PRN tylenol and oxycodone Response: VSS CONCHA MUNOZ RN 07/17/2020 19:09 * Plan of Care - Ashish Andrews RN - 07/17/2020 0127 EDT Data: Hx L cerebral venous thrombus w/ hemorrhage requiring craniectomy and evacuation in January. Presented this admit w/ seizure activity. Action: Neuro checks q4h. Assess for pain - incisional and chronic R shoulder. Assist x1 to toilet. Response: Neuro status mostly unchanged - some moments of less intense aphasia. Pain well managed with tylenol, robaxin, oxy 5mg. Slept most of the night. VSS. ASHISH ANDREWS RN 07/17/2020 6:22 Problem: Daily Care Plan Goals Goal: Care Plan Documentation Outcome: Met This Shift Problem: Cognitive: Goal: Mental status/cognition is maintained/returned to baseline Outcome: Ongoing documented in this encounter Plan of Treatment Upcoming Encounters Date Type Department Care Team (Late st Contact Info) Description 03/04/2025 14:00 EDT Telemedicine [facility] [address] [place], [place] [id number] Brayan Polk MD [address] [facility] [address] [place] [address] 07/14/2025 14:30 EDT Office Visit [facility] Hematology & Oncology - [address] [id number] Evin Maria MD [address] [place] [address], [address] [place] [address] Scheduled Referrals Name Type Priority Associated Diagnoses Orde r Schedule AMB CONS/FOLLOW UP HOME HEALTH SERVICES Outpatient Referral Routine Seizure ([facility]) History of cranial surgery Ordered: 07/18/2020 documented as of this encounter Procedures Procedure Name Priority Date/Time Associated Diagnosis Comments PTT Routine 07/17/2020 6:44 EDT PROTIME Routine 07/17/2020 6:44 EDT COMPLETE BLOOD COUNT AND DIFFERENTIAL Routine 07/17/2020 6:44 EDT BUN Routine 07/17/2020 6:44 EDT CREATININE Routine 07/17/2020 6:44 EDT ELECTROLYTES Routine 07/17/2020 6:44 EDT documented in this encounter Results * (ABNORMAL) COMPLETE BLOOD COUNT AND DIFFERENTIAL (07/17/2020 6:44 EDT) WBC 5.40 4.00 - 12.40 K/cmm 07/17/2020 7:10 [facility] RBC 3.64(L) 3.86 - 5.04 M/cmm 07/17/2020 7:10 [facility] Hemoglobin 10.7(L) 11.6 - 15.2 gm/dL 07/17/2020 7:10 [facility] HCT 31.2(L) 34.9 - 44.4 % 07/17/2020 7:10 [facility] MCV 86 81 - 98 fl 07/17/2020 7:10 [facility] MCH 29.4 26.7 - 33.3 pg 07/17/2020 7:10 [facility] MCHC 34.3 32.1 - 35.9 gm/dL 07/17/2020 7:10 [facility] RDW-CV 13.2 <14.7 % 07/17/2020 7:10 [facility] RDW-SD 40.7 <50.4 fl 07/17/2020 7:10 [facility] PLT 253 141 - 377 K/cmm 07/17/2020 7:10 [facility] MPV 10.0 9.5 - 12.7 fl 07/17/2020 7:10 [facility] % Neutrophils 50.0 % 07/17/2020 7:10 [facility] % Lymphocytes 38.1 % 07/17/2020 7:10 [facility] % Monocytes 7.0 % 07/17/2020 7:10 [facility] % Eosinophils 4.1 % 07/17/2020 7:10 [facility] % Basophils 0.6 % 07/17/2020 7:10 [facility] % Immature Grans 0.2 % 07/17/20 20 7:10 [facility] Absolute Neutrophils 2.70 2.20 - 8.85 K/cmm 07/17/2020 7:10 T [facility] Absolute Lymphocytes 2.06 1.09 - 3.30 K/cmm 07/17/2020 7:10 T [facility] Absolute Monocytes 0.38 0.10 - 0.80 K/cmm 07/17/2020 7:10 [facility] Absolute Eosinophils 0.22 0.03 - 0.61 K/cmm 07/17/2020 7:10 T [facility] ABS Basophils 0.03 0.01 - 0.11 K/cmm 07/17/2020 7:10 [facility] Absolute Immature Grans 0.01 0.00 - 0.06 K/cmm 07/17/2020 7:10 [facility] Type of Differential: Auto 07/17/2020 7:10 [facility] Blood VENOUS BLOOD / Unknown Venipuncture / Unknown 07/17/2020 6:44 EDT 07/17/2020 6:59 EDT us Shivam Alcantar MD PACKAGES & DNA PROBE ORDERABLES Final Result [facility] [address] [place] [phone] * CREATININE (07/17/2020 6:44 EDT) Creatinine 0.71 0.52 - 1.04 mg/dL 07/17/2020 7:45 EDT [facility] eGFR 98 >60 mL/min/1.7 3m2 07/17/2020 7:45 EDT [facility] Comment:eGFR calculated mickey redd CKD-EPI equation for non- Americans. Multiply eGFR by 1.16 for patients. Blood VENOUS BLOOD / Unknown Venipuncture / Unknown 07/17/2020 6:44 EDT 07/17/2020 7:16 EDT us Shivam Alcantar MD CHEMISTRY & BLOOD GAS ORDERABLE S Final Result [facility] [address] [place] [address] * BUN (07/17/2020 6:44 EDT) BUN 15 10 - 26 mg/dL 07/17/2020 7:45 EDT [facility] Blood VENOUS BLOOD / Unknown Venipuncture / Unknown 07/17/2020 6:44 EDT 07/17/2020 7:16 EDT us Shivam Alcantar MD CHEMISTRY & BLOOD GAS ORDERABLE S Final Result Performing Organization Address City/[facility]/ZIP Co de Phone Number [facility] [address] [place] [address] * ELECTROLYTES (07/17/2020 6:44 EDT) Sodium 140 136 - 145 mEq/L 07/17/2020 7:45 EDT [facility] Potassium 4.0 3.5 - 5.0 mEq/L 07/17/2020 7:45 EDT [facility] Chloride 102 96 - 110 mEq/L 07/17/2020 7:45 EDT [facility] CO2 Total 28 22 - 32 mEq/L 07/17/2020 7:45 EDT [facility] Blood VENOUS BLOOD / Unknown Venipuncture / Unknown 07/17/2020 6:44 EDT 07/17/2020 7:16 EDT us Shivam Alcantar MD CHEMISTRY & BLOOD GAS ORDERABLE S Final Result [facility] [address] [place] [address] * PTT (07/17/2020 6:44 EDT) PTT 35 26 - 37 secs 07/17/2020 7:25 EDT [facility] Blood VENOUS BLOOD / Unknown Venipuncture / Unknown 07/17/2020 6:44 EDT 07/17/2020 6:59 EDT us Shviam Alcantar MD HEMATOLOGY & PF4 ORDERABLES Fin al Result Performing Organization Address [facility] Co de Phone Number [facility] [address] [place] [address] * PROTIME (07/17/2020 6:44 EDT) I.N.R. 1.1 0.9 - 1.1 Ratio 07/17/2020 7:25 EDT [facility] Pro Time 13.3 10.3 - 13.4 secs 07/17/2020 7:25 EDT [facility] Blood VENOUS BLOOD / Unknown Venipuncture / Unknown 07/17/2020 6:44 EDT 07/17/2020 6:59 EDT Narrative [facility] - 07/17/2020 7:25 EDT Moderate Intensity Coumadin INR = 2.0-3.0 Adjustments in anticoagulant therapy dose should be based on the INR and NOT on the Protime. us Shivam Alcantar MD HEMATOLOGY & PF4 ORDERABLES Fin al Result Performing Organization Address [facility] Co de Phone Number [facility] [address] [place] [address] documented in this encounter Visit Diagnoses Diagnosis Seizure (HCC-CMS)- Primary Other convulsions Seizure (HCC-CMS) Other convulsions History of cranial surgery Other postprocedural status documented in this encounter Admitting Diagnoses Diagnosis Seizure (HCC-CMS) Other convulsions documented in this encounter Administered Medications Inactive Administered Medications - up to 3 most recent administrations Medication Order MAR Action Action Date Dose Rate Site acetaminophen (TYLENOL) solution unit dose cup 650 mg 650 mg, per ng tube, EVERY 4 HOURS PRN, Starting on 07/16/20 at 1524, Until 07/18/20 at 1325, Pain, Routine, Release acetaminophen (TYLENOL) suppository 650 mg 650 mg, rectal, EVERY 4 HOURS PRN, Starting on 07/16/20 at 1524, Until 07/18/20 at 1325, Pain, Routine, Release acetaminophen (TYLENOL) tablet 650 mg 650 mg, oral, EVERY 4 HOURS PRN, Starting on 07/16/20 at 1524, Until 07/18/20 at 1325, Pain, Routine, Release Given 07/18/2020 10:39 EDT 650 mg Given 07/18/2020 4:59 EDT 650 mg Given 07/17/2020 22:08 EDT 650 mg docusate sodium (COLACE) capsule 100 mg 100 mg, oral, 2 TIMES DAILY, First dose on 07/16/20 at 2100, Until Discontinued, Routine, Release Given 07/18/2020 8:49 EDT 100 mg Given 07/17/2020 20:35 EDT 100 mg Given 07/17/2020 9:05 EDT 100 mg fentaNYL citrate (PF) injection 50 mcg 50 mcg, intravenous, NOW X1, 1 dose, On 07/16/20 at 1400, STAT Given 07/16/2020 14:03 EDT 50 mcg levETIRAcetam (KEPPRA) 1,000 mg in sodium chloride (NS) 0.9 % 100 mL IVPB 1,000 mg, intravenous, Administer over 15 Minutes, EVERY 12 HOURS, 14 doses, First dose (after last modification) on 07/16/20 at 2100, Last dose on 07/23/20 at 0900, Routine, Release levETIRAcetam (KEPPRA) tablet 1,000 mg 1,000 mg, oral, EVERY 12 HOURS, 14 doses, First dose (after last modification) on 07/16/20 at 2100, Last dose on 07/23/20 at 0900, Routine, Release Given 07/18/2020 8:49 EDT 1,000 mg Given 07/17/2020 20:34 EDT 1,000 mg Given 07/17/2020 9:05 EDT 1,000 mg melatonin tablet 5 mg 5 mg, oral, AT BEDTIME, First dose on 07/16/20 at 2100, Until Discontinued, Routine Given 07/17/2020 20:35 EDT 5 mg Given 07/16/2020 21:26 EDT 5 mg methocarbamoL (ROBAXIN) tablet 750 mg 750 mg, oral, EVERY 8 HOURS PRN, Starting on 07/16/20 at 1527, Until 07/18/20 at 1325, Other, muscle spasms, Routine, Release Given 07/18/2020 8:22 EDT 750 mg Given 07/17/2020 13:56 EDT 750 mg Given 07/17/2020 6:43 EDT 750 mg Multivitamins with Minerals tablet 1 Tab 1 Tablet, oral, DAILY, First dose on 07/16/20 at 1545, Until Discontinued, Routine, Release Given 07/18/2020 8:49 EDT 1 Tablet Given 07/17/2020 9:04 EDT 1 Tablet Given 07/16/2020 19:04 EDT 1 Tablet ondansetron (ZOFRAN-ODT) disintegrating tablet 4 mg 4 mg, oral, EVERY 4 HOURS PRN, Starting on 07/16/20 at 1810, Until 07/18/20 at 1325, Nausea, Routine Given 07/18/2020 10:43 EDT 4 mg oxyCODONE (ROXICODONE) immediate release tablet 5-10 mg 5-10 mg, oral, EVERY 4 HOURS PRN, Starting on 07/16/20 at 1526, Until Sat07/18/20 at 1325, Pain, discomfort, Routine, Release Given 07/18/2020 10:39 EDT 5 mg Given 07/18/2020 5:00 EDT 5 mg Given 07/17/2020 22:08 EDT 5 mg pantoprazole (PROTONIX) tablet 40 mg 40 mg, oral, DAILY, First dose on 07/16/20 at 1830, Until Discontinued, Routine Given 07/18/2020 8:49 EDT 40 mg Given 07/17/2020 9:04 EDT 40 mg Given 07/16/2020 19:04 EDT 40 mg polyethylene glycol 3350 (MIRALAX) packet 17 g 17 g, oral, DAILY PRN, Starting on 07/16/20 at 1810, Until Sat07/18/20 at 1325, Constipation, Routine Given 07/18/2020 8:56 EDT 17 g Given 07/17/2020 9:57 EDT 17 g QUEtiapine (SEROQUEL) tablet 50 mg 50 mg, oral, AT BEDTIME, First dose on 07/16/20 at 2100, Until Discontinued, Routine Given 07/17/2020 20:35 EDT 5 0 mg Given 07/16/2020 21:26 EDT 50 mg senna (SENOKOT) tablet 1 Tab 1 Tablet, oral, 2 TIMES DAILY, First dose on Sat07/18/20 at 0900, Until Discontinued, Routine, Release Given 07/18/2020 8:49 EDT 1 Tablet documented in this encounter Discontinued Medications Medication Sig Discontinue Reason Start Date End Da te bupropion HCl (WELLBUTRIN XL ORAL) Take by mouth. 07/18/2020 enoxaparin (LOVENOX) 60 mg/0.6 mL injection Inject 50 mg into the skin every 12 hours. 04/27/2020 07/18/2020 enoxaparin (LOVENOX) 40 mg/0.4 mL injection Inject 40 mg into the skin daily for 28 days. 07/14/2020 07/18/2020 documented as of this encounter Active and Recently Administered Medications Times are shown in EDT. Scheduled Medication Order 07/16/2020 07/17/2020 07/18/2020 docusate sodium (COLACE) capsule 100 mg 100 mg, oral, 2 TIMES DAILY, First dose on 07/16/20 at 2100, Until Discontinued, Routine, Release 2125 (Given - Provider: Ashish Andrews, RN) 09 (Given - Provider: Concha Munoz, RN)2034 (Given - Provider: Estela Bo, AZALEA) 0849 (Given - Provider: Juanis Roach, RN) fentaNYL citrate (PF) injection 50 mcg (COMPLETED) 50 mcg, intravenous, NOW X1, 1 dose, On 07/16/20 at 1400, STAT 1403 (Given - Provider: Amy Javed, RN) levETIRAcetam (KEPPRA) 1,000 mg in sodium chloride (NS) 0.9 % 100 mL IVPB(Linked Group 1) 1,000 mg, intravenous, Administer over 15 Minutes, EVERY 12 HOURS, 14 doses, First dose (after last modification) on 07/16/20 at 2100, Last dose on 07/23/20 at 0900, Routine, Release 2125 (See Alternative - Provider: Ashish Andrews, AZALEA) 09 (See Alternative - Provider: Concha Munoz, AZALEA)2033 (See Alternative - Provider: Estela Bo, AZALEA) 0849 (See Alternative - Provider: Juanis Roach, AZALEA) levETIRAcetam (KEPPRA) tablet 1,000 mg(Linked Group 1) 1,000 mg, oral, EVERY 12 HOURS, 14 doses, First dose (after last modification) on 07/16/20 at 2100, Last dose on 07/23/20 at 0900, Routine, Release 2126 (Given - Provider: Ashish Andrews RN) 0905 (Given - Provider: Concha Munoz, AZALEA)2033 (Given - Provider: Estela Bo, AZALEA) 0849 (Given - Provider: Juanis Roach, AZALEA) melatonin tablet 5 mg 5 mg, oral, AT BEDTIME, First dose on 07/16/20 at 2100, Until Discontinued, Routine 2125 (Given - Provider: Ashish Andrews RN) 2034 (Given - Provider: Estela Bo RN) Multivitamins with Minerals tablet 1 Tab 1 Tablet, oral, DAILY, First dose on 07/16/20 at 1545, Until Discontinued, Routine, Release 1903 (Given - Provider: Martha Jordan RN) 0904 (Given - Provider: Concha Munoz RN) 0849 (Given - Provider: Juanis Roach, AZALEA) pantoprazole (PROTONIX) tablet 40 mg 40 mg, oral, DAILY, First dose on 07/16/20 at 1830, Until Discontinued, Routine 1903 (Given - Provider: Martha Jordan RN) 0904 (Given - Provider: Concha Munoz RN) 0849 (Given - Provider: Juanis Roach, AZALEA) QUEtiapine (SEROQUEL) tablet 50 mg 50 mg, oral, AT BEDTIME, First dose on 07/16/20 at 2100, Until Discontinued, Routine 2125 (Given - Provider: Ashish Andrews RN) 2034 (Given - Provider: Estela Bo, AZALEA) senna (SENOKOT) tablet 1 Tab 1 Tablet, oral, 2 TIMES DAILY, First dose on 07/18/20 at 0900, Until Discontinued, Routine, Release 848 (Given - Provider: Juanis Roach, AZALEA) PRN Medication Order 07/16/2020 07/17/2020 07/18/2020 acetaminophen (TYLENOL) solution unit dose cup 650 mg(Linked Group 2) 650 mg, per ng tube, EVERY 4 HOURS PRN, Starting on 07/16/20 at 1524, Until 07/18/20 at 1325, Pain, Routine, Release 2125 (See Alternative - Provider: Ashish Andrews RN) 0137 (See Alternative - Provider: Ashish Andrews RN)0643 (See Alternative - Provider: Ashish Andrews RN)0958 (See Alternative - Provider: Concha Munoz RN)180 (See Alternative - Provider: Concha Munoz RN)220 (See Alternative - Provider: Estela Bo, AZALEA) 045 (See Alternative - Provider: Brandon Guerra, RN)103 (See Alternative - Provider: Juanis Roach, RN) acetaminophen (TYLENOL) suppository 650 mg(Linked Group 2) 650 mg, rectal, EVERY 4 HOURS PRN, Starting on 07/16/20 at 1524, Until 07/18/20 at 1325, Pain, Routine, Release 2126 (See Alternative - Provider: Ashish Andrews RN) 0137 (See Alternative - Provider: Ashish Andrews RN)0643 (See Alternative - Provider: Ashish Andrews RN)0958 (See Alternative - Provider: Concha Munoz RN)180 (See Alternative - Provider: Concha Munoz RN)220 (See Alternative - Provider: Estela Bo, AZALEA) 045 (See Alternative - Provider: Brandon Guerra, RN)1039 (See Alternative - Provider: Juanis Roach, RN) acetaminophen (TYLENOL) tablet 650 mg(Linked Group 2) 650 mg, oral, EVERY 4 HOURS PRN, Starting on 07/16/20 at 1524, Until Sat07/18/20 at 1325, Pain, Routine, Release 2126 (Given - Provider: Ashish Andrews RN) 0137 (Given - Provider: Ashish Andrews RN)0643 (Given - Provider: Ashish Andrews RN)0958 (Given - Provider: Concha Munoz RN)180 (Given - Provider: Concha Munoz RN)220 (Given - Provider: Estela Bo RN) 045 (Given - Provider: Brandon Guerra, RN)1039 (Given - Provider: Juanis Roach, RN) calcium carbonate (TUMS) 200 mg calcium (500 mg) per chewable tablet tablet,chewable 1 Tab 1 Tablet, oral, EVERY 4 HOURS PRN, Starting on 07/16/20 at 1527, Until 07/18/20 at 1325, Heartburn, Routine, Release hydrALAzine (APRESOLINE) 10 mg in sodium chloride (NS) 0.9 % 50 mL IVPB 10 mg, intravenous, Administer over 20 Minutes, EVERY 1 HOUR PRN, Starting on 07/16/20 at 1527, Until 07/18/20 at 1325, Routine, Release methocarbamoL (ROBAXIN) tablet 750 mg 750 mg, oral, EVERY 8 HOURS PRN, Starting on 07/16/20 at 1527, Until 07/18/20 at 1325, Other, muscle spasms, Routine, Release 2126 (Given - Provider: Ashish Andrews RN) 0643 (Given - Provider: Ashish Andrews RN)1356 (Given - Provider: Concha Munoz RN) 0822 (Given - Provider: Eneida Vcitoria RN) ondansetron (ZOFRAN-ODT) disintegrating tablet 4 mg 4 mg, oral, EVERY 4 HOURS PRN, Starting on 07/16/20 at 1810, Until 07/18/20 at 1325, Nausea, Routine 1043 (Given - Provider: Juanis Roach, AZALEA) oxyCODONE (ROXICODONE) immediate release tablet 5-10 mg 5-10 mg, oral, EVERY 4 HOURS PRN, Starting on 07/16/20 at 1526, Until 07/18/20 at 1325, Pain, discomfort, Routine, Release 1831 (Given - Provider: Martha Jordan, AZALEA) 0137 (Given - Provider: Ashish Andrews RN)0958 (Given - Provider: Concha Munoz RN)1356 (Given - Provider: Concha Munoz RN)1809 (Given - Provider: Concha Munoz RN)2208 (Given - Provider: Estela Bo, AZALEA) 0500 (Given - Provider: Brandon Guerra, RN)1039 (Given - Provider: Juanis Roach, AZALEA) polyethylene glycol 3350 (MIRALAX) packet 17 g 17 g, oral, DAILY PRN, Starting on 07/16/20 at 1810, Until 07/18/20 at 1325, Constipation, Routine 0957 (Given - Provider: Concha Munoz RN) 0856 (Given - Provider: Juanis Roach RN) Linked Groups Order Group 1: levETIRAcetam (KEPPRA) tablet 1,000 mgJump to med 1,000 mg, oral, EVERY 12 HOURS, 14 doses, First dose (after last modification) on 07/16/20 at 2100, Last dose on 07/23/20 at 0900, Routine, Release Or levETIRAcetam (KEPPRA) 1,000 mg in sodium chloride (NS) 0.9 % 100 mL IVPBJump to med 1,000 mg, intravenous, Administer over 15 Minutes, EVERY 12 HOURS, 14 doses, First dose (after last modification) on 07/16/20 at 2100, Last dose on 07/23/20 at 0900, Routine, Release Group 2: acetaminophen (TYLENOL) tablet 650 mgJump to med 650 mg, oral, EVERY 4 HOURS PRN, Starting on 07/16/20 at 1524, Until 07/18/20 at 1325, Pain, Routine, Release Or acetaminophen (TYLENOL) solution unit dose cup 650 mgJump to med 650 mg, per ng tube, EVERY 4 HOURS PRN, Starting on 07/16/20 at 1524, Until 07/18/20 at 1325, Pain, Routine, Release Or acetaminophen (TYLENOL) suppository 650 mgJump to med 650 mg, rectal, EVERY 4 HOURS PRN, Starting on 07/16/20 at 1524, Until 07/18/20 at 1325, Pain, Routine, Release documented in this encounter Orders Medications Ordered That Babak ht Not Have Been Administered Count Last Ordered Date First Ordered Date acetaminophen (TYLENOL) solu tion unit dose cup 650 mg 07/16/2020 acetaminophen (TYLENOL) suppository 650 mg 07/16/2020 buPROPion (WELLBUTRIN XL) XL tablet 300 mg 07/16/2020 calcium carbonate (TUMS) 200 mg calcium (500 mg) per chewable tablet tablet,chewable 1 Tab 07/16/2020 hydrALAzine (APRESOLINE) 10 mg in sodium chloride (NS) 0.9 % 50 mL IVPB 1 07/16/2020 levETIRAcetam (KEPPRA) 1,000 mg in sodium chloride (NS) 0.9 % 100 mL IVPB 1 07/16/2020 levETIRAcetam (KEPPRA) 500 m g in sodium chloride (NS) 0.9 % 100 mL IVPB 1 07/16/2020 levETIRAcetam (KEPPRA) tablet 500 mg 1 06/26 morphine injection 4 mg 1 07/16/2020 Nursing Count Last Ordered Date First Orde red Date CONTRAINDICATION TO ANTICOAG ULATION THERAPY 1 07/16/2020 Admission Count Last Ordered Date First Orde red Date INITIATE OBSERVATION STATUS 1 07/16/2020 Transfer Count Last Ordered Date First Orde red Date ED BED REQUEST 1 07/16/2020 Discharge Count Last Ordered Date First Orde red Date DISCHARGE PATIENT 1 07/18/2020 documented in this encounter Care Teams Sales And Service Officer Relationship Specialty Start Date End Date Romario Hairston MD [address], [place] [address] PCP - General 07/06/20 documented as of this encounter
--- OUTSIDE RECORDS SUMMARY | 2024-12-03 15:59 | XMS_ITS | Encounter Summary ---
Author Organization Health system Address [address] [place] [address] Care Team Providers Care Logistician Name Role Phone Romario Hairston MD Primary Care Provider [phone]- [phone] Reason for Visit * Reason Onset Date Comments Referral Request 08/03/2020 Encounter Details Date Type Department Care Team (Late st Contact Info) Description 08/03/2020 Telephone [facility] - [address] [address] Claus Piña MD [address] [place] [address], [address] [place] [address] Referral Request Social History Tobacco Use Types [...] * Telephone Encounter - Magalie Yip - 08/04/2020 1405 EDT Called and spoke to Ever to let him know that the referral has been placed and a message left at [facility] to reach out to him to schedule. * Telephone Encounter - Dionna Toledo - 08/03/2020 1034 EDT Ever called to request that a referral be sent to Dr. Brayan Polk in Neurology at [facility]. documented in this encounter Plan of Treatment Upcoming Encounters Date Type Department Care Team (Late st Contact Info) Description 03/04/2025 14:00 EDT Telemedicine [facility] - [facility] Neurology Clinic [address] [place] [address] Brayan Polk MD [address] [place] [address] [place] [address] 07/14/2025 14:30 EDT Office Visit [facility] Hematology & Oncology - [facility] [address], [place] [phone] Evin Maria MD [address] [facility], [address] [place] [address] documented as of this encounter Visit Diagnoses Not on filedocumented in this encounter Care Teams Logistician Relationship Specialty Start Date End Date Romario Hairston MD [address], [address] [id number] PCP - General 07/06/20 documented as of this encounter
--- OUTSIDE RECORDS SUMMARY | 2024-12-03 15:59 | XMS_ITS | Encounter Summary ---
Author Organization [facility] Address [address] [place] [address] Care Team Providers Care University Controller Name Role Phone Romario Hairston MD Primary Care Provider [phone]- [phone] Reason for Visit * Reason Onset Date Comments Appointment Related 07/25/2020 Encounter Details Date Type Department Care Team (Late st Contact Info) Description 07/25/2020 Telephone [facility] Neurophysiology - [facility] ([facility]) [address] [place] [address] Verenice Correa, TECHNICAL SPECIALIST CYTOGENETICS [address] [place] [address] [address] [place] [address] Appointment Related Social History Tobacco Use Types [...] encounter Miscellaneous Notes * Telephone Encounter - Sharon Hennessy MA - 07/25/2020 1605 EDT TC to pt to reschedule 08/08 telemedicine [facility] b/c Verenice Correa will be on vacation on that date. Spoke to pt contact, rescheduled telemedicine [facility] for 08/22 at 1:00 pm. documented in this encounter Plan of Treatment Upcoming Encounters Date Type Department Care Team (Late st Contact Info) Description 03/04/2025 14:00 EDT Telemedicine [facility] Neurology Clinic [address] [place] [address] Brayan Polk MD [address] [facility] [address] [place] [address] 07/14/2025 14:30 EDT Office Visit [facility] Cancer Center Hematology & Oncology - [address] [id number] Evin Maria MD [address] [facility], [address] [place] [phone] documented as of this encounter Visit Diagnoses Not on filedocumented in this encounter Care Teams University Controller Relationship Specialty Start Date End Date Romario Hairston MD [address], [address] [id number] PCP - General 07/06/20 documented as of this encounter
--- OUTSIDE RECORDS SUMMARY | 2024-12-03 15:59 | XMS_ITS | Encounter Summary ---
Author Organization [facility] Address [address] [place] [address] Care Team Providers Care Mechanical Engineering Professor Name Role Phone Romario Hairston MD Primary Care Provider +1- [phone] Reason for Visit * (Routine) - Receiving Office to Obtain Authorization Specialty Diagnoses / Procedures Referred By Mitch pruett Referred To Contact Procedures CT OUTSIDE IMAGES NEURO Unknown, Provider, MD Referral ID Status Reason Start Date Expiration Date Visits Requested Visits Authorized [id number] Receiving Office to Obtain Authorization 07/16/2020 1 1 Encounter Details Date Type Department Care Team (Latest Contact Info) Description 07/16/2020 11:19 EDT - 07/16/2020 12:54 EDT Hospital Encounter [facility] Radiology - Main [place] [address] [place] [address] Discharge Disposition: Home or Self Care Social [...] by mouth every 6 hours. 07/14/2020 4 bupropion HCl (WELLBUTRIN XL ORAL) Take by mouth. 0 docusate sodium (COLACE) 100 mg capsule Take 1 Cap by mouth 2 times daily. 07/14/2020 2 enoxaparin (LOVENOX) 40 mg/0.4 mL injection Inject 40 mg into the skin daily for 28 days. 28 Syringe 07/14/2020 0 enoxaparin (LOVENOX) 60 mg/0.6 mL injection Inject 50 mg into the skin every 12 hours. 60 Syringe 3 04/27/2020 0 levETIRAcetam (KEPPRA) 1,000 mg tablet Take 1 [...] [facility] [address] [place], [place] [address] Brayan Polk MD 130 [facility] [address] [place] [phone] 07/14/2025 14:30 EDT Office Visit [facility] Cancer Center Hematology & Oncology - [facility] [address] [place], [place] [phone] Evin Maria MD 111 [facility], [facility], Level 2 [place] [address] documented as of this encounter Procedures Procedure Name Priority Date/Time Associated Diagnosis Comments CT OUTSIDE IMAGES NEURO Routine 07/16/2020 11:19 EDT documented in this encounter Results * CT OUTSIDE IMAGES NEURO (07/16/2020 11:19 EDT) Narrative MAIRABECKY - 07/16/2020 11:19 EDT This is a non-reportable exam. us Provider Unknown IMG OTHER IMAGING ORDERABLES Final Result LEIGH ANN documented in this encounter Visit Diagnoses Not on filedocumented in this encounter Care Teams Mechanical Engineering Professor Relationship Specialty Start Date End Date Romario Hairston MD [facility] [place], [place] [address] PCP - General 07/06/20 documented as of this encounter
--- OUTSIDE RECORDS SUMMARY | 2024-12-03 15:59 | XMS_ITS | Encounter Summary ---
Author Organization [facility] Address [address] [place] [address] Care Team Providers Care Grain Handler Name Role Phone Romario Hairston MD Primary Care Provider +1- [phone] Encounter Details Date Type Department Care Team (Latest Contact Info) Description 07/16/2020 Travel Social History Tobacco Use Types Packs/Day [...] 07/16/2020 18:38 EDT Lisa Broderick RN documented as of [...] 03/04/2025 14:00 EDT Telemedicine [facility] Neurology Clinic [address] [place] [phone] Brayan Polk MD [address] [place] [address]A [address] [place] [phone] 07/14/2025 14:30 EDT Office Visit [facility] Cancer Center Hematology & Oncology - [address] [phone] Evin Maria MD 111 [facility], Level 2 [place] [phone] documented as of this encounter Visit Diagnoses Not on filedocumented in this encounter Care Teams Grain Handler Relationship Specialty Start Date End Date Romario Hairston MD [address], [address] [phone] PCP - General 07/06/20 documented as of this encounter
--- OUTSIDE RECORDS SUMMARY | 2024-12-03 15:59 | XMS_ITS | Encounter Summary ---
Author Organization [facility] Address [address] [place] [address] Care Team Providers Care Photograph Editor Name Role Phone Romario Hairston MD Primary Care Provider +1- [phone] Encounter Details Date Type Department Care Team (Late st Contact Info) Description 08/01/2020 Results Only [facility] [phone] Yves Main MD [address] [place] [phone] Social History Tobacco Use Types Packs/Day [...] Info) Description 03/04/2025 14:[address] [facility] Neurology Clinic [address] [place] [address] Brayan Polk MD [address] [place] [address] [address] [place] [phone] 07/14/2025 14:30 EDT Office Visit [facility] Cancer Center Hematology & Oncology - [address] [phone] Evin Maria MD [address] [place] [address], Level 2 [place] [address] documented as of this encounter Procedures Procedure Name Priority Date/Time Associated Diagnosis Comments ETHYL ALCOHOL - [facility] Routine 08/01/2020 23:43 EDT COMPLETE BLOOD COUNT WITH DIFFERENTIAL (AUTO) Routine 08/01/2020 23:43 EDT MAGNESIUM Routine 08/01/2020 23:43 EDT CK Routine 08/01/2020 23:43 EDT COMPREHENSIVE METABOLIC PANEL (CMP) Routine 08/01/2020 23:43 EDT documented in this encounter Results * (ABNORMAL) MAGNESIUM (08/01/2020 23:43 EDT) [facility] Magnesium 1.40(L) 1.7 - 2.8 mg/dL 08/02/2020 0:31 EDT [facility] 08/01/2020 23:4 3 EDT 08/01/2020 23:44 EDT Yves Main MD CHEMISTRY & BLOOD GAS ORDER [place] Final Result Performing Organization Address [facility] de Phone Number [facility] [address] [place] [address] * (ABNORMAL) ETHYL ALCOHOL - [facility] (08/01/2020 23:43 EDT) [facility] ETHYL ALCOHOL [facility] 12.0(H) <10 mg/dL 08/02/2020 0:31 EDT [facility] 08/01/2020 23:4 3 EDT 08/01/2020 23:44 EDT Yves Main MD CHEMISTRY & BLOOD GAS ORDER [place] Final Result Performing Organization Address [facility] Co de Phone Number [facility] [address] [place] [address] * CK (08/01/2020 23:43 EDT) [facility] CPK [facility] 44 30 - 135 U/L 08/02/2020 0:31 EDT [facility] 08/01/2020 23:4 3 EDT 08/01/2020 23:44 EDT Yves Main MD CHEMISTRY & BLOOD GAS ORDER [place] Final Result [facility] [address] [place] [address] * (ABNORMAL) COMPREHENSIVE METABOLIC PANEL (CMP) (08/01/2020 23:43 EDT) Albumin % 3.6 3.4 - 4.9 g/dL 08/02/2020 0:31 [facility] ALKALINE PHOSPHATASE - [facility] 128(H) 38 - 126 U/L 08/02/2020 0:31 [facility] BILIRUBIN TOTAL 0.4 0.2 - 1.3 mg/dL 08/02/2020 0:31 [facility] BUN - [facility] 7(L) 10 - 26 mg/dL 08/02/2020 0:31 [facility] CALCIUM - [facility] 9.9 8.5 - 10.5 mg/dL 08/02/2020 0:31 [facility] Chloride 107 96 - 110 mmol/L 08/02/2020 0:31 [facility] CO2 Total 21(L) 22 - 32 mEq/L 08/02/2020 0:31 [facility] CREATININE 0.79 0.52 - 1.04 mg/dL 08/02/2020 0:31 [facility] eGFR >60 08/02/2020 0:31 [facility] Comment: Chronic renal impairment is defined as GFR <60 Multiply result by 1.210 for patients. eGFR calculated using the IDMS-traceable MDRD Study Equation. ??(effective 09/27/2014) Anion Gap 12 0 - 18 08/02/2020 0:31 [facility] GLUCOSE - [facility] 89 70 - 100 mg/dL 08/02/2020 0:31 [facility] Potassium 4.2 3.5 - 5.0 mEq/L 08/02/2020 0:31 [facility] Sodium 140 136 - 145 mEq/L 08/02/2020 0:31 [facility] TOTAL PROTEIN - [facility] 6.4 6.2 - 8.2 gm/dL 08/02/2020 0:31 [facility] SGOT/AST - [facility] 23 14 - 36 U/L 08/02/2020 0:31 EDT [facility] SGPT/ALT - [facility] 15 0 - 35 U/L 0 0:31 T [facility] 08/01/2020 23:4 3 EDT 08/01/2020 23:44 EDT us Yves Main MD CHEMISTRY & BLOOD GAS ORDER [place] Final Result [facility] [address] [place] [address] * (ABNORMAL) COMPLETE BLOOD COUNT WITH DIFFERENTIAL (AUTO) (08/01/2020 23:43 EDT) Gran # 2.5 2.2 - 8.85 10e3/uL 08/01/2020 23:49 EDT [facility] BASO # - [facility] 0.02 0.01 - 0.11 10e/uL 08/[facility]/2020 [facility] 0 0 - 2 % [facility]2020 [facility] EOS # - [facility] 0.19 0.03 - 0.61 10e3/ul 08/01/2020 23:49 [facility] EOS % - [facility] 3 0 - 5 % 08/01/2020 [facility] GRAN % - [facility] 40.7 40 - 80 % 08/01/2020 [facility] HEMAT[facility]IT - [facility] 34.3(L) 34.9 - 44.4 % 08/01/2020 23:49 EDT [facility] HEMOGLOBIN - [facility] 11.4(L) 11.6 - 15.2 g/dl 08/01/2020 23[facility] IG# - [facility] 0.02 0 - 0.7 10e3/uL 08/01/2020 23:49 EDT [facility] IG% - [facility] 0.3 0 - 0.9 % 08/01/2020 23:49 [facility] LYMPH # - [facility] 3.1 1.09 - 3.3 10e3/ul 08/01/2020 23:49 [facility] LYMPH% - [facility] 49.5(H) 20 - 40 % 08/01/2020 23:49 [facility] MEAN CORPUSCULAR HGB - [facility] 28.9 26.7 - 33.3 pg 08/01/2020 23:49 [facility] MEAN CORPUSCULAR HGB CONC - [facility] 33.2 32.1 - 35.9 g/dL 08/01/2020 23:49 [facility] MEAN CELL VOLUME - [facility] 87.1 81 - 98 fl 08/01/2020 23:49 [facility] MONO # - [facility] 0.4 0.1 - 0.8 10e3/uL 08/01/2020 23:49 [facility] MONO% - [facility] 6.2 0 - 12 % 08/01/2020 23:49 [facility] PLATELET COUNT 232 141 - 377 10e3/ul 08/01/2020 23:49 [facility] RED BLOOD COUNT - [facility] 3.94 3.86 - 5.04 10e3/ul 08/01/2020 23:49 [facility] RED CELL DISTRI WIDTH - [facility] 12.6 <14.7 % 08/01/2020 23:49 [facility] WHITE BLOOD COUNT - [facility] 6.3 4.0 - 12.4 10e3/ul 08/01/2020 23:49 [facility] 08/01/2020 23:4 3 EDT 08/01/2020 23:45 EDT us Yves Terry Main MD HEMATOLOGY & PF4 ORDERABLES Final Result [facility] [address] [place] [address] documented in this encounter Visit Diagnoses Not on filedocumented in this encounter Care Teams Photograph Editor Relationship Specialty Start Date End Date Romario Hairston MD [address] [place] [address] PCP - General 07/06/20 documented as of this encounter
--- OUTSIDE RECORDS SUMMARY | 2024-12-03 15:59 | XMS_ITS | Encounter Summary ---
Author Organization [facility] Address [address] [place] [address] Care Team Providers Care Senior Controls Analyst Name Role Phone Romario Hairston MD Primary Care Provider +1- [phone] Reason for Visit * Reason Onset Date Comments New/Evolving Symptoms 08/12/2020 Encounter Details Date Type Department Care Team (Late st Contact Info) Description 08/12/2020 Telephone [facility] Neurology Clinic [address] [place] [address] Brayan Polk MD 130 [facility] [address] [place] [address] New/Evolving Symptoms Social History Tobacco [...] Telephone Encounter - Vashti Grover RN - 08/12/2020 1630 EDT Ever verbalized understanding of Dr. Polk's message. * Telephone Encounter - Brayan Polk MD - 08/12/2020 1412 EDT Understood, appreciate the update. I wouldn't make any changes currently, but appreciate him letting us know about what is happening. * Telephone Encounter - Yudi Izaguirre - 08/12/2020 1305 EDT Pt's caregiver called and wanted Dr Polk to know that the pt had a bout of twitching last nightwhere she was unable to move her limbs. Pt's seizure meds was recently changed and he also said that the pt had anxious since then, he is not sure if this is related to the change in meds or the pt'sdisability apt that she had coming up. He also left a message for the pt's pcp about this. documented in this encounter Plan of Treatment Upcoming Encounters Date Type Department Care Team (Late st Contact Info) Description 03/04/2025 14:00 EDT Telemedicine [facility] Neurology Clinic [address] [place] [phone] Brayan Polk MD 130 [facility] [address] [place] [phone] 07/14/2025 14:30 EDT Office Visit [facility] Cancer Center Hematology & Oncology - [address] [phone] Evin Maria MD [address] [place] [address], Level [address] [place] [phone] documented as of this encounter Visit Diagnoses Not on filedocumented in this encounter Care Teams Senior Controls Analyst Relationship Specialty Start Date End Date Romario Hairston MD [address], [address] [phone] PCP - General 07/06/20 documented as of this encounter
--- OUTSIDE RECORDS SUMMARY | 2024-12-03 15:59 | XMS_ITS | Encounter Summary ---
Author Organization [facility] Address [address] [place] [address] Care Team Providers Care Technical Applications Specialist Name Role Phone Romario Hairston MD Primary Care Provider +1- [phone] Encounter Details Date Type Department Care Team (Late st Contact Info) Description 07/30/2020 Results Only [facility] - Main [address] [address] Sherman Ponce MD [address] [place] [address] Social History Tobacco Use Types Packs/Day [...] 14:[address] [facility] Neurology Clinic [address] [place] [address] Brayan Polk MD [address] [place] [address] [address] [place] [phone] 07/14/2025 14:30 EDT Office Visit [facility] Cancer Center Hematology & Oncology - [address] [phone] Evin Maria MD [address] [place] [address], Level [address] [place] [address] documented as of this encounter Procedures Procedure Name Priority Date/Time Associated Diagnosis Comments COMPLETE BLOOD COUNT WITH DIFFERENTIAL (AUTO) Routine 07/30/2020 19:10 EDT TROPONIN I Routine 07/30/2020 19:10 EDT MAGNESIUM Routine 07/30/2020 19:10 EDT COMPREHENSIVE METABOLIC PANEL (CMP) Routine 07/30/2020 19:10 EDT documented in this encounter Results * TROPONIN I (07/30/2020 19:10 EDT) [facility] Troponin I (ng/mL) <0.034 0.000 - 0.034 ng/mL 07/30/2020 19:57 EDT [facility] Comment: Interpretation comments: ??Cutoff for a positive troponin result is set at the 99th percentile of the upper reference limit. ??Elevated troponin must always be interpreted in the context of the clinical presentation. ?Serial troponin testing 3-6 hr from baseline is favored over relying on a single troponin level. ?? The results of this assay can be falsely lowered due to the consumption of Biotin. 07/30/2020 19:1 0 EDT 07/30/2020 19:18 EDT us Sherman Ponce MD CHEMISTRY & BLOOD GAS ORDERA BLES Final Result Performing Organization Address [facility] Co de Phone Number [facility] [address] [place] [address] * (ABNORMAL) MAGNESIUM (07/30/2020 19:10 EDT) [facility] Magnesium 1.50(L) 1.7 - 2.8 mg/dL 07/30/2020 19:47 EDT [facility] 07/30/2020 19:1 0 EDT 07/30/2020 19:18 EDT Sherman Ponce MD CHEMISTRY & BLOOD GAS ORDERA BLES Final Result Performing Organization Address [facility] Co de Phone Number [facility] [address] [place] [address] * (ABNORMAL) COMPREHENSIVE METABOLIC PANEL (CMP) (07/30/2020 19:10 EDT) [facility] Albumin % 4.0 3.4 - 4.9 g/dL 07/30/2020 19:47 [facility] ALKALINE PHOSPHATASE - [facility] 162(H) 38 - 126 U/L 07/30/2020 19:47 [facility] BILIRUBIN TOTAL 0.5 0.2 - 1.3 mg/dL 07/30/2020 19:47 [facility] BUN - [facility] 12 10 - 26 mg/dL 07/30/2020 19:47 [facility] CALCIUM - [facility] 10.0 8.5 - 10.5 mg/dL 07/30/2020 19:47 [facility] Chloride 105 96 - 110 mmol/L 07/30/2020 19:47 [facility] CO2 Total 27 22 - 32 mEq/L 07/30/2020 19:47 [facility] CREATININE 0.91 0.52 - 1.04 mg/dL 07/30/2020 19:47 [facility] eGFR >60 07/30/2020 19:47 [facility] Comment: Chronic renal impairment is defined as GFR <60 Multiply result by 1.210 for patients. eGFR calculated using the IDMS-traceable MDRD Study Equation. ??(effective 09/27/2014) Anion Gap 8 0 - 18 07/30/2020 19:47 [facility] GLUCOSE - [facility] 95 70 - 100 mg/dL 07/30/2020 19:47 [facility] Potassium 4.5 3.5 - 5.0 mEq/L 07/30/2020 19:47 [facility] Sodium 140 136 - 145 mEq/L 07/30/2020 19:47 [facility] TOTAL PROTEIN - [facility] 6.8 6.2 - 8.2 gm/dL 07/30/2020 19:47 [facility] SGOT/AST - [facility] 38(H) 14 - 36 U/L 07/30/2020 19:47 [facility] SGPT/ALT - [facility] 24 0 - 35 U/L 0 19:47 [facility] 07/30/2020 19:1 0 EDT 07/30/2020 19:18 EDT us Sherman Ponce MD CHEMISTRY & BLOOD GAS ORDERA BLES Final Result [facility] [address] [place] [address] * COMPLETE BLOOD COUNT WITH DIFFERENTIAL (AUTO) (07/30/2020 19:10 EDT) Gran # 3.8 2.2 - 8.85 10e3/uL 07/30/2020 19:27 EDT [facility] BASO # - [facility] 0.05 0.01 - 0.11 10e/uL 07/30/2020 19:27 [facility] BASO % - [facility] 1 0 - 2 % 07/30/2020 19:27 [facility] EOS # - [facility] 0.29 0.03 - 0.61 10e3/ul 07/30/2020 19:27 [facility] EOS % - [facility] 4 0 - 5 % 07/30/2020 19:27 [facility] GRAN % - [facility] 53.2 40 - 80 % 07/30/2020 19:27 [facility] HEMATOCRIT - [facility] 38.0 34.9 - 44.4 % 07/30/2020 19:27 [facility] HEMOGLOBIN - [facility] 12.4 11.6 - 15.2 g/dl 07/30/2020 19:27 [facility] IG# - [facility] 0.02 0 - 0.7 10e3/uL 07/30/2020 19:27 [facility] IG% - [facility] 0.3 0 - 0.9 % 07/30/2020 19:27 [facility] LYMPH # - [facility] 2.6 1.09 - 3.3 10e3/ul 07/30/2020 19:27 [facility] LYMPH% - [facility] 37.2 20 - 40 % 07/30/2020 19:27 [facility] MEAN CORPUSCULAR HGB - [facility] 28.7 26.7 - 33.3 pg 07/30/2020 19:27 [facility] MEAN CORPUSCULAR HGB CONC - [facility] 32.6 32.1 - 35.9 g/dL 07/30/2020 19:27 [facility] MEAN CELL VOLUME - [facility] 88.0 81 - 98 fl 07/30/2020 19:27 [facility] MONO # - [facility] 0.3 0.1 - 0.8 10e3/uL 07/30/2020 19:27 [facility] MONO% - [facility] 4.5 0 - 12 % 07/30/2020 19:27 [facility] PLATELET COUNT 314 141 - 377 10e3/ul 07/30/2020 19:27 [facility] RED BLOOD COUNT - [facility] 4.32 3.86 - 5.04 10e3/ul 07/30/2020 19:27 [facility] RED CELL DISTRI WIDTH - [facility] 12.5 <14.7 % 07/30/2020 19:27 [facility] WHITE BLOOD COUNT - [facility] 7.1 4.0 - 12.4 10e3/ul 07/30/2020 19:27 [facility] 07/30/2020 19:1 0 EDT 07/30/2020 19:18 EDT us Sherman Ponce MD HEMATOLOGY & PF4 ORDERABLES Final Result [facility] [address] [place] [address] documented in this encounter Visit Diagnoses Not on filedocumented in this encounter Care Teams Technical Applications Specialist Relationship Specialty Start Date End Date Romario Hairston MD [address] [place] [address] PCP - General 07/06/20 documented as of this encounter
--- OUTSIDE RECORDS SUMMARY | 2024-12-03 15:59 | XMS_ITS | Encounter Summary ---
Author Organization [facility] Address [address] [place] [address] Care Team Providers Care Palliative Care Physician Name Role Phone Romario Hairston MD Primary Care Provider +1- [phone] Reason for Visit * (Routine) - Receiving Office to Obtain Authorization Specialty Diagnoses / Procedures Referred By Mitch pruett Referred To Contact Procedures CT OUTSIDE IMAGES NEURO Unknown, Provider, MD Referral ID Status Reason Start Date Expiration Date Visits Requested Visits Authorized [id number] Receiving Office to Obtain Authorization 07/30/2020 1 1 Encounter Details Date Type Department Care Team (Latest Contact Info) Description 07/30/2020 20:38 EDT - 07/30/2020 23:59 EDT Hospital Encounter [facility] Center Secondary Reads [place] Discharge [...] 14:00 EDT Telemedicine [facility] Neurology Clinic [address] [place] [phone] Brayan Polk MD [address] [place] [address]A [address] [place] [phone] 07/14/2025 14:30 EDT Office Visit [facility] Cancer Center Hematology & Oncology - [address] [phone] Evin Maria MD [address] [place] [address], [facility], Level 2 [place] [phone] documented as of this encounter Procedures Procedure Name Priority Date/Time Associated Diagnosis Comments CT OUTSIDE IMAGES NEURO Routine 07/30/2020 20:38 EDT documented in this encounter Results * CT OUTSIDE IMAGES NEURO (07/30/2020 20:38 EDT) Narrative 07/30/2020 20:38 EDT This is a non-reportable exam. us Provider Unknown IMSuzanne OTHER IMAGING ORDERABLES Final Result documented in this encounter Visit Diagnoses Not on filedocumented in this encounter Care Teams Palliative Care Physician Relationship Specialty Start Date End Date Romario Hairston MD [address] [place] [address] PCP - General 07/06/20 documented as of this encounter
--- OUTSIDE RECORDS SUMMARY | 2024-12-03 15:59 | XMS_ITS | Encounter Summary ---
Author Organization [facility] Address [address] [place] [address] Care Team Providers Care Chemical Maker Name Role Phone Romario Hairston MD Primary Care Provider +1- [phone] Reason for Visit * Reason Onset Date Comments New/Evolving Symptoms 07/29/2020 Encounter Details Date Type Department Care Team (Late st Contact Info) Description 07/29/2020 Telephone [facility] Neurosurgery - [facility] [address] [place] [address] Karen Haley RN New/Evolving Symptoms Social History Tobacco Use Types [...] Telephone Encounter - Tayler Vallejo RN - 07/29/2020 1230 EDT Spoke with Ever who wanted to know what to do about the patient's frozen shoulder and who notes thathe is concerned about when the patient runs out of pain medication because it will be another few weeks before she can get in to have her injection. I discussed with Ever that as Dr. Piña and myself have informed them several times, the frozen shoulder is not neurosurgical and should be discussed with her PCP or ortho. I also advised that the patient medication we prescribed is for her surgical pain and that if she is using this medication for her shoulder instead, we will no longer be prescribing pain medication and she will need to discuss this with her PCP. Ever verbalized understanding butnoted he was afraid because she gets anxious when she is in pain. I advised him to discuss this with her PCP as well. Ever verbalized understanding and agreed with plan. * Telephone Encounter - Karen Haley RN - 07/29/2020 1219 EDT Ever phoned to discuss pain medication and new symptoms of a frozen shoulder on the left side. documented in this encounter Plan of Treatment Upcoming Encounters Date Type Department Care Team (Late st Contact Info) Description 03/04/2025 14:00 EDT Telemedicine [facility] Neurology Clinic [address] [place], [place] [phone] Brayan Polk MD [address] [facility] [address] [place] [phone] 07/14/2025 14:30 EDT Office Visit [facility] Cancer Center Hematology & Oncology - [address] [phone] Evin Maria MD [address] [place] [address], [facility], Level 2 [place] [phone] documented as of this encounter Visit Diagnoses Not on filedocumented in this encounter Care Teams Chemical Maker Relationship Specialty Start Date End Date Romario Hairston MD [address], [address] [id number] PCP - General 07/06/20 documented as of this encounter
--- OUTSIDE RECORDS SUMMARY | 2024-12-03 15:59 | XMS_ITS | Encounter Summary ---
Author Organization [facility] Address [address] [place] [address] Care Team Providers Care Director Corporate Compliance Name Role Phone Romario Hairston MD Primary Care Provider +1- [phone] Encounter Details Date Type Department Care Team (Late st Contact Info) Description 08/02/2020 Results Only [facility] [phone] Yves Main MD [address] [place] [phone] Social History Tobacco Use Types Packs/Day [...] EDT Telemedicine [facility] Neurology Clinic [address] [place] [address] Brayan Polk MD [address] [place] [address] [address] [place] [phone] 07/14/2025 14:30 EDT Office Visit [facility] Cancer Center Hematology & Oncology - [address] [phone] Evin Maria MD [address] [place] [address], [address] [place] [address] documented as of this encounter Procedures Procedure Name Priority Date/Time Associated Diagnosis Comments URINALYSIS - [facility] Routine 08/02/2020 0:20 EDT documented in this encounter Results * URINALYSIS - [facility] (08/02/2020 0:20 EDT) URINE APPEARANCE - [facility] Clear CLEAR 08/02/2020 0:26 EDT [facility] URINE BILIRUBIN - DIPSTICK - [facility] Negative NEGATIVE 08/02/2020 0:26 EDT [facility] URINE BLOOD - [facility] Negative NEG [facility] Yellow YELLOW [facility]2020 [facility] GLUCOSE - [place] - [facility] Negative NEGATIVE 08/02/2020 [facility] KETONE - [facility] Negative NEGATIVE 08/02/2020 0:26 [facility] URINE LEUK ESTERASE - [facility] Negative NEG 08/02/2020 0:26 [facility] URINE NITRITE - [place] - [facility] Negative NEG 08/02/2020 0:26 [facility] URINE PH - [facility] 6.0 4.0 - 8.0 0 0:26 [facility] PROTEIN - [place] - [facility] Negative NEG 08/02/2020 0:26 [facility] URINE SPECIFIC GRAVITY - [facility] <=1.005 1.001 - 1.035 08/02/2020 0:26 [facility] URINE UROBILINOGEN - [place] - [facility] 0.2 0.2 - 1.0 08/02/2020 0:26 [facility] 08/02/2020 0:20 EDT 08/02/2020 0:20 EDT us Yves Main MD CHEMISTRY & BLOOD GAS ORDER [place] Final Result [facility] [address] [place] [address] documented in this encounter Visit Diagnoses Not on filedocumented in this encounter Care Teams Director Corporate Compliance Relationship Specialty Start Date End Date Romario Hairston MD [address] [place] [address] PCP - General 07/06/20 documented as of this encounter
--- OUTSIDE RECORDS SUMMARY | 2024-12-03 15:59 | XMS_ITS | Encounter Summary ---
Author Organization [facility] Address [address] [place] [address] Care Team Providers Care Communications Clerk Name Role Phone Romario Hairston MD Primary Care Provider +1- [phone] Reason for Visit * Reason Onset Date Comments Physical Therapy 07/19/2020 Medication Questions 07/19/2020 Encounter Details Date Type Department Care Team (Late st Contact Info) Description 07/19/[address] [facility] - [address] [phone] Claus Piña MD [address] [place] [address], [address] [place] [address] Physical Therapy; Medication Questions Social History Tobacco Use Types [...] mouth every 4 hours as needed for up to 5 days for Pain. Daily Max: 30 mg 30 Tab 07/20/2020 07/25/2020 documented in this encounter Miscellaneous Notes * Addendum Note - Melany Nicolas APRN - 07/20/2020 1101 EDTAddended by: MELANY NICOLAS on: 07/20/2020 11:01 Modules accepted: Orders * Addendum Note - Tayler Smith RN - 07/20/2020 1044 EDTAddended by: TAYLER SMITH on: 07/20/2020 10:44 Modules accepted: Orders * Telephone Encounter - Tayler Smith RN - 07/20/2020 1037 EDT Discussed with Melany Nicolas APRN who advised that it is fine to restart the Wellbutrin. Ever also notes that the patient needs a refill of her oxycodone. I advised him that we will put the refill through and it will be ready to machine operator picker this afternoon. * Telephone Encounter - Vashti Rick - 07/20/2020 0925 EDT Ever called again asking for an update. He is getting nervous, because the patient keeps getting very anxious. He is concerned it is because she is off of the Wellbutrin. * Telephone Encounter - Tayler Smith RN - 07/19/2020 1637 EDT Received call back from Ever who stated the PCP wants to get Dr. Piña's approval to restart the Wellbutrin. * Telephone Encounter - Tayler Smith RN - 07/19/2020 1245 EDT Discussed with Melany Nicolas APRN who advised that the patient should hold off on restarting PT until she is at least 2 weeks post-op and that she should start with very short sessions of mild exercise and work her way up. Spoke with Ever who was advised of the recommendations and that he should contact the provider who prescribed her Wellbutrin. He notes that overall she is doing well with manageable surgical pain onlyand no further seizure activity. He denies any issues with the incision. He is aware of the s/s that would require a call back to the office or 911. * Telephone Encounter - Magalie Yip - 07/19/2020 0932 EDT Ever is calling wanting to know if Ynes will be able to participate in physical therapy for her shoulder. They have an opening as soon as tomorrow. He states she was also taken off Wellbutrin and he wants to make sure that it okay. documented in this encounter Plan of Treatment Upcoming Encounters Date Type Department Care Team (Late st Contact Info) Description 03/04/2025 14:00 EDT Telemedicine [facility] Neurology Clinic [address] [place], [place] [phone] Brayan Polk MD 130 [facility] [address] [place] [address] 07/14/2025 14:30 EDT Office Visit [facility] Cancer Center Hematology & Oncology - [address] [phone] Evin Maria MD [address] [place] [address], [facility], [address] [place] [phone] documented as of this encounter Visit Diagnoses Not on filedocumented in this encounter Discontinued Medications Medication Sig Discontinue Reason Start Date End Da te oxyCODONE (ROXICODONE) 5 mg immediate release tablet Take 1 Tab by mouth every 4 hours as needed for Pain. Daily Max: 30 mg Reorder 07/18/2020 07/20/2020 documented as of this encounter Care Teams Communications Clerk Relationship Specialty Start Date End Date Romario Hairston MD [address] [email or web address], [address] [address] PCP - General 07/06/20 documented as of this encounter
--- OUTSIDE RECORDS SUMMARY | 2024-12-03 15:59 | XMS_ITS | Encounter Summary ---
Author Organization [facility] Address [address] [place] [address] Care Team Providers Care C 40A Crew Chief Name Role Phone Romario Hairston MD Primary Care Provider +1- [phone] Reason for Visit * Reason Onset Date Comments Patient Information Update 08/02/2020 Encounter Details Date Type Department Care Team (Late st Contact Info) Description 08/02/2020 Telephone [facility] - [address] [address] Claus Piña MD [address] [place] [address], [address] [place] [address] Patient Information Update Social History Tobacco Use Types Packs/Day [...] Telephone Encounter - Tayler Vallejo RN - 08/02/2020 1100 EDT Discussed with Melany Pedro APRN who advised the patient should continue taking the Keppra until she is seen by neurology at which time they will give further guidance at that time. I again advised Ever to reach out to the patient's PCP to discuss options for managing her anxiety as he feels it is not well controlled at this time. Ever verbalized understanding and agreed with the plan stating that he will contact the PCP today. * Telephone Encounter - Karen Haley RN - 08/02/2020 1030 EDT Spoke with Ever who stated the patient is anxious. She received ativan and magnesium in the ED last night. Advised that a nurse will contact him regarding the Keppra once there is a response. * Telephone Encounter - Desi [place] - 08/02/2020 0801 EDT Reason for Call: Patient Information Update Summary/Symptoms: Ever patient's friend calling to advise that patient was having tremors and was very anxious she is home now but he would like a call from the nurse to advise if he should give her the Kepra or not as he feels these were side effects Please call back to advise Desi [place] 08/02/2020 8:02 documented in this encounter Plan of Treatment Upcoming Encounters Date Type Department Care Team (Late st Contact Info) Description 03/04/2025 14:00 EDT Telemedicine [facility] Neurology Clinic [address] [place] [phone] Brayan Polk MD [address] [place] [address]- [address] [place] [phone] 07/14/2025 14:30 EDT Office Visit [facility] Cancer Center Hematology & Oncology - [address] [phone] Evin Maria MD 111 [facility], Level [address] [place] [address] documented as of this encounter Visit Diagnoses Not on filedocumented in this encounter Care Teams C 40A Crew Chief Relationship Specialty Start Date End Date Romario Hairston MD [address], [address] [place] [phone] PCP - General 07/06/20 documented as of this encounter
--- OUTSIDE RECORDS SUMMARY | 2024-12-03 15:59 | XMS_ITS | Encounter Summary ---
Author Organization [facility] Address [address] [place] [address] Care Team Providers Care Service Station Console Operator Name Role Phone Romario Hairston MD Primary Care Provider +1- [phone] Reason for Visit * Reason Onset Date Comments Update 08/03/2020 Encounter Details Date Type Department Care Team (Late st Contact Info) Description 08/03/2020 Telephone [facility] [place] [address] Karen Haley RN Update Social History Tobacco Use Types Packs/Day [...] Assessment Author No 07/16/2020 18:38 EDT Lisa Broderick, AZALEA * Are you blind or do [...] Telephone Encounter - Tayler Vallejo RN - 08/03/2020 1535 EDT Discussed with Melany Pedro APRN who advised while she would recommend the patient remain in Keppra, if another provider is now managing the medication then this is fine. She will place a new neurology referral for the requested provider. * Telephone Encounter - Tayler Vallejo RN - 08/03/2020 1223 EDT Spoke with Ever who states that Ynes has been in the ED several times this week due to her tremors/anxiety. He states that the provider at that ED is weaning her off the Keppra and starting zonisamide as he felt she is not tolerating the Keppra. She is currently taking 500mg keppra twice a day and 100mg of zonisamide once a day. Next week she will just be taking zonisamide twice a day and stopping the Keppra. Ever also notes that they would like to see Dr. Brayan Polk who is a neurologist at [facility] as he is closer to them. I advised Ever that I would pass this message along to our provider and contact him if there are any concerns. * Telephone Encounter - Karen Haley RN - 08/03/2020 1130 EDT Ever would like to discuss recent medication changes. documented in this encounter Plan of Treatment Upcoming Encounters Date Type Department Care Team (Late st Contact Info) Description 03/04/2025 14:00 EDT Telemedicine [facility] Neurology Clinic [address] [place] [address] Brayan Polk MD 130 [facility] [address] [place] [phone] 07/14/2025 14:30 EDT Office Visit [facility] Cancer Center Hematology & Oncology - [address] [phone] Evin Maria MD 111 [facility], Level [address] [place] [address] documented as of this encounter Visit Diagnoses Diagnosis [facility]izure ([facility])- Primary Other convulsions documented in this encounter Care Teams Service Station Console Operator Relationship Specialty Start Date End Date Romario Hairston MD [address] [facility], [address] [phone] PCP - General 07/06/20 documented as of this encounter
--- OUTSIDE RECORDS SUMMARY | 2024-12-03 15:59 | XMS_ITS | Encounter Summary ---
Author Organization [facility] Address [address] [place] [address] Care Team Providers Care Bank President Name Role Phone Romario Hairston MD Primary Care Provider +1- [phone] Reason for Visit * (Routine) - Receiving Office to Obtain Authorization Specialty Diagnoses / Procedures Referred By Mitch pruett Referred To Contact Procedures CT OUTSIDE IMAGES NEURO Unknown, Provider, MD Referral ID Status Reason Start Date Expiration Date Visits Requested Visits Authorized [id number] Receiving Office to Obtain Authorization 08/05/2020 1 1 Encounter Details Date Type Department Care Team (Latest Contact Info) Description 08/02/2020 - 08/02/2020 23:59 EDT Hospital Encounter [facility] Secondary Reads [place] Discharge Disposition: Home [...] 1 Tab by mouth daily. 07/18/2020 0 OLANZapine (ZYPREXA) 5 mg tablet Take 5 mg by mouth daily. Filled on 01/08/22 #90 tablets, per caregiver pt may take an extra' dose if needed 08/02/2020 2 ondansetron (ZOFRAN-ODT) 4 mg disintegrating tablet [...] EDT Telemedicine [facility] Neurology Clinic [address] [place] [phone] Brayan Polk MD [address] [place] [address]-[address] [place] [phone] 07/14/2025 14:30 EDT Office Visit [facility] Cancer Center Hematology & Oncology - [address] [phone] Evin Maria MD [address] [place] [address], [facility], Level [address] [place] [phone] documented as of this encounter Procedures Procedure Name Priority Date/Time Associated Diagnosis Comments CT OUTSIDE IMAGES NEURO Routine 08/05/2020 12:57 EDT documented in this encounter Results * CT OUTSIDE IMAGES NEURO (08/05/2020 12:57 EDT) Narrative 08/05/2020 12:57 EDT This is a non-reportable exam. us Provider Unknown IMSuzanne OTHER IMAGING ORDERABLES Final Result documented in this encounter Visit Diagnoses Not on filedocumented in this encounter Care Teams Bank President Relationship Specialty Start Date End Date Romario Hairston MD [address], [address] [place] [address] PCP - General 07/06/20 documented as of this encounter
--- OUTSIDE RECORDS SUMMARY | 2024-12-03 15:59 | XMS_ITS | Encounter Summary ---
Author Organization [facility] Address [address] [place] [address] Care Team Providers Care Poly Operator Name Role Phone Romario Hairston MD Primary Care Provider +1- [phone] Encounter Details Date Type Department Care Team (Late st Contact Info) Description 07/16/2020 Results Only Imaging [facility] Radiology Results [address] [place] [address] Jean Mccarthy MD [address] [place] [address] Social History Tobacco Use Types [...] 03/04/2025 14:00 EDT Telemedicine [facility] Neurology Clinic [address] [place] [address] Brayan Polk MD [address] [facility] [address] [place] [phone] 07/14/2025 14:30 EDT Office Visit [facility] Cancer Center Hematology & Oncology - [address] [id number] Evin Maria MD [address] [place] [address], [facility], [address] 2 [place] [address] documented as of this encounter Procedures Procedure Name Priority Date/Time Associated Diagnosis Comments CT HEAD WO CONTRAST 07/16/2020 1 0:53 EDT documented in this encounter Results * CT HEAD WO CONTRAST (07/16/2020 10:53 EDT) Anatomical Region Laterality Modality Head Computed Tomogra phy 07/16/2020 10:5 3 EDT Narrative 07/16/2020 10:53 EDT ? AN ADDENDUM IS INCLUDED ON THIS REPORT ? ADDENDUM ? History: ??The bony cranium was previously removed and then ? surgically replaced 4 days ago. ? 3. 6 mm extradural fluid collection which appears to be mostly ? subacute blood but small amount of acute blood along with small ? postoperative air in the region. ??This is extra-axial and may ? represent subdural collections. ? 6. There is a high density partially calcified curvilinear ? membrane covering the brain between the extra-axial fluid ? collection and the left ruben calvarium which could represent ? Kavon or partially calcified dura. ? THIS REPORT CONTAINS FINDINGS THAT MAY BE CRITICAL TO PATIENT ? CARE. The findings were verbally communicated via telephone ? conference with Jean Mccatrhy at 10:59 AM EDT on 07/16/2020. The ? findings were acknowledged and understood. ? ADDENDUM SIGNED IN OTHER VENDOR SYSTEM 07/16/2020 ?Reported By: Shawn Denton MD ?Transcribed: 07/16/2020 (1100) HIS.VRAD ?REPORT ? EXAM: CAT SCAN/HEAD W/O CONTRAST STROKE A EX. D/ (1039) ? CLINICAL INFORMATION: ? new seziure, post op neurosurgery ? PROCEDURE INFORMATION: ? Exam: CT Head Without Contrast ? Exam date and time: 07/16/2020 10:21 AM ? Age: 50 years old ? Clinical indication: Other: Seizure; Prior surgery; Surgery ? date: Post-operative (0-2 days); Surgery type: Crainiotomy; ? Additional info: New seziure, post op neurosurgery ? TECHNIQUE: ? Imaging protocol: Computed tomography of the head without ? contrast. ? Radiation optimization: All CT scans at this facility use at ? least one of these dose optimization techniques: automated ? exposure control; mA and/or kV adjustment per patient size ? (includes targeted exams where dose is matched to clinical ? indication); or iterative reconstruction. ? Other technique: STROKE PROTOCOL was implemented. ? COMPARISON: ? CT HEAD WITHOUT CONTRAST 02/14/2020 2:11 PM ? FINDINGS: ? 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 hemorrhage/hematoma. 6 mm postoperative subdural hematoma with a ? small amount of postoperative subdural air. 3 mm midline shift ? to the right, which may be secondary to postoperative subdural ? PAGE 1 ? Signed Report ? (CONTINUED) ? AN ADDENDUM IS INCLUDED ON THIS REPORT ? hematoma. Previously there was 4 mm midline shift to the right ? from the left intracerebral hematomas. Prominent ? encephalomalacia in the left temporal lobe and adjacent ? frontal/parietal lobe in the region previous occupied by ? intracerebral hematomas. ? Ventricles: Normal. No ventriculomegaly. ? Bones/joints: Unremarkable. No acute fracture. ? Sinuses: Visualized sinuses are unremarkable. No fluid levels. ? Mastoid air cells: Visualized mastoid air cells are well ? aerated. ? Soft tissues: Skin ghassan over the left temporoparietal scalp ? and left paramedian frontal scalp. ? IMPRESSION: ? 1. 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 hemorrhage/hematoma. ? 2. Skin ghassan over the left temporoparietal scalp and left ? paramedian frontal scalp. ? 3. 6 mm postoperative subdural hematoma with a small amount of ? postoperative subdural air. ? 4. 3 mm midline shift to the right, which may be secondary to ? postoperative subdural hematoma. Previously there was 4 mm ? midline shift to the right from the left intracerebral ? hematomas. ? 5. Prominent encephalomalacia in the left temporal lobe and ? adjacent frontal/parietal lobe in the region previous occupied ? by intracerebral hematomas. ? ASSESSMENT: ? ASPECTS (Jackson Stroke Program Early CT Score) is 10. ? REPORT SIGNED IN OTHER VENDOR SYSTEM 07/16/2020 ?Reported By: Shawn Denton MD ? CC: ? Transcribed Date/Time: 07/16/2020 (1053) ? Manipulative Therapy Specialist: ? Printed Date/Time: 07/16/2020 (1100) ? PAGE 2 ? Signed Report ? Procedure Note Shawn Denton MD - 07/16/2020 AN ADDENDUM IS INCLUDED ON THIS REPORT ADDENDUM History: The bony cranium was previously removed and then surgically replaced 4 days ago. 3. 6 mm extradural fluid collection which appears to be mostly subacute blood but small amount of acute blood along with small postoperative air in the region. This is extra-axial and may represent subdural collections. 6. There is a high density partially calcified curvilinear membrane covering the brain between the extra-axial fluid collection and the left ruben calvarium which could represent Kavon or partially calcified dura. THIS REPORT CONTAINS FINDINGS THAT MAY BE CRITICAL TO PATIENT CARE. The findings were verbally communicated via telephone conference with Jean Mccarthy at 10:59 AM EDT on 07/16/2020. The findings were acknowledged and understood. ADDENDUM SIGNED IN OTHER VENDOR SYSTEM 07/16/2020 Reported By: Shawn Denton MD Transcribed: 07/16/2020 (1100) REPORT EXAM: CAT SCAN/HEAD W/O CONTRAST STROKE A EX. D/ (1039) CLINICAL INFORMATION: august diaz post op neurosurgery PROCEDURE INFORMATION: Exam: CT Head Without Contrast Exam date and time: 07/16/2020 10:21 AM Age: 50 years old Clinical indication: Other: Seizure; Prior surgery; Surgery date: Post-operative (0-2 days); Surgery type: Crainiotomy; Additional info: August diaz post op neurosurgery TECHNIQUE: Imaging protocol: Computed tomography of the head without contrast. Radiation optimization: All CT scans at this facility use at least one of these dose optimization techniques: automated exposure control; mA and/or kV adjustment per patient size (includes targeted exams where dose is matched to clinical indication); or iterative reconstruction. Other technique: STROKE PROTOCOL was implemented. 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 6 mm postoperative subdural hematoma with a small amount of postoperative subdural air. 3 mm midline shift to the right, which may be secondary to postoperative subdural PAGE 1 Signed Report (CONTINUED) AN ADDENDUM IS INCLUDED ON THIS REPORT hematoma. Previously there was 4 mm midline shift to the right from the left intracerebral hematomas. Prominent encephalomalacia in the left temporal lobe and adjacent frontal/parietal lobe in the region previous occupied by intracerebral hematomas. Ventricles: Normal. No ventriculomegaly. Bones/joints: Unremarkable. No acute fracture. Sinuses: Visualized sinuses are unremarkable. No fluid levels. Mastoid air cells: Visualized mastoid air cells are well aerated. Soft tissues: Skin ghassan over the left temporoparietal scalp and left paramedian frontal scalp. IMPRESSION: 1. 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 2. Skin ghassan over the left temporoparietal scalp and left paramedian frontal scalp. 3. 6 mm postoperative subdural hematoma with a small amount of postoperative subdural air. 4. 3 mm midline shift to the right, which may be secondary to postoperative subdural hematoma. Previously there was 4 mm midline shift to the right from the left intracerebral hematomas. 5. Prominent encephalomalacia in the left temporal lobe and adjacent frontal/parietal lobe in the region previous occupied by intracerebral hematomas. ASSESSMENT: ASPECTS (Jackson Stroke Program Early CT Score) is 10. REPORT SIGNED IN OTHER VENDOR SYSTEM 07/16/2020 Reported By: Shawn Denton MD CC: Transcribed Date/Time: 07/16/2020 (2800) Manipulative Therapy Specialist: Printed Date/Time: 07/16/2020 (1100) PAGE 2 Signed Report Jean Mccarthy MD IMG CT ORDERABLES Edited Re sult - Final documented in this encounter Visit Diagnoses Not on filedocumented in this encounter Additional Health Concerns Infection Onset Date Last Indicated Resolved Time R/O COVID-19 Comment:Negative result 03/07/2022 03/07/2022 03/07/2022 9:37 EDT R/O COVID-19 01/28/2024 01/28/2024 01/29/2024 0:27 EST documented as of this encounter Care Teams Poly Operator Relationship Specialty Start Date End Date Romario Hairston MD [address] [place] [address] PCP - General 07/06/20 documented as of this encounter
--- OUTSIDE RECORDS SUMMARY | 2024-12-03 15:59 | XMS_ITS | Encounter Summary ---
Author Organization [facility] Address [address] [place] [address] Care Team Providers Care Poker Machine Attendant Name Role Phone Romario Hairston MD Primary Care Provider +1- [phone] Reason for Visit * Reason Onset Date Comments Headache 07/24/2020 Encounter Details Date Type Department Care Team (Late st Contact Info) Description 07/24/2020 [facility]phone [facility] [address] [place], [place] [phone] Shivam Alcantar MD [address] [place] [address] Headache Social History Tobacco Use Types Packs/Day Years [...] 18:38 EDT Broderick, Lisa mansi, RN * Are you blind or do [...] encounter Miscellaneous Notes * Telephone Encounter - Shivam Alcantar MD - 07/24/2020 1101 EDT Received call from patient's significant other regarding incisional head pain and shoulder pain. Ever states that patient continues to have incisional head pain but is nearly out of oxycodone. Prescription for oxycodone sent to patient's pharmacy. Instructed Ever that any further pain management issues should be referred to her primary care physician. He was agreeabale with this plan. Recommended that if symptoms worsen patient should present to ED for further evaluation. SHIVAM ALCANTAR MD 07/24/2020 11:01 documented in this encounter Plan of Treatment Upcoming Encounters Date Type Department Care Team (Late st Contact Info) Description 03/04/2025 14:00 EDT Telemedicine [facility] Neurology Clinic [address] [place] [address] Brayan Polk MD 130 [facility] [address] [place] [address] 07/14/2025 14:30 EDT Office Visit [facility] Cancer Center Hematology & Oncology - [address] [address] Evin Maria MD [address] [place] [address], [facility], [address] [place] [phone] documented as of this encounter Visit Diagnoses Not on filedocumented in this encounter Care Teams Poker Machine Attendant Relationship Specialty Start Date End Date Romario Hairston MD [address], [facility] [place], [place] [id number] PCP - General 07/06/20 documented as of this encounter
--- OUTSIDE RECORDS SUMMARY | 2024-12-03 15:59 | XMS_ITS | Encounter Summary ---
Author Organization [facility] Address [address] [place] [address] Care Team Providers Care Concrete Floater Name Role Phone Romario Hairston MD Primary Care Provider +1- [phone] Reason for Visit * Reason Comments Other ICH, seizure Encounter Details Date Type Department Care Team (Late st Contact Info) Description 08/05/2020 12:00 EDT Office Visit [facility] [address] [place] [address] Brayan Polk MD 130 [facility] [address] [place] [address] Seizure (HCC-CMS) (Primary Dx); Cerebral venous sinus thrombosis; Nontraumatic cortical hemorrhage of left cerebral hemisphere [...] Sign Reading Time Taken Comments Blood Pressure 132/62 08/05/2020 1200 EDT Pulse 72 08/05/2020 1200 EDT Temperature - - Respiratory Rate 20 08/05/2020 1200 EDT Oxygen Saturation - - Inhaled Oxygen Concentration [...] Date of Assessment Author No 07/16/2020 18:38 J CARLOST Lisa Broderick RN * Do you have [...] * Patient Instructions* Brayan Polk MD - 08/05/2020 12:00 EDT Continue the transition from keppra to zonisamide. Until aug 09, keep taking keppra 500mg twice a day, and zonisamide 100mg once a day Jul 16 stop keppra and increase zonisamide up to 200mg once a day Come back in a month documented in this encounter Progress Notes * Brayan Polk MD - 08/05/[address] [facility] Neurology Clinic PATIENT NAME: Ynes White PATIENT : 1970 PCP: Romario Hairston DATE OF SERVICE: 08/05/2020 CHIEF COMPLAINT: abnormal movements, recent ICH HISTORY OF PRESENT ILLNESS Ynes Wihte is a 50 y.o. female who suffered ICH related to cerebral venous thrombosis in January 2020, treated with surgical evacuation by Dr Piña, and subsequent cranioplasty, as well as likelysymptomatic seizure in June for which she was briefly admitted to [facility], and placed on levetiracetam 1000mg BID. She has recently been to the [facility] ED several times and because of that presents today for urgent evaluation of abnormal movements and other symptoms. She and her good friend Ever who ishere discuss that she has had events of imbalance, arm shaking, and some vision change. Shaking episodes Ever demonstrates that both arms would shake, with head shaking, then legs get weakand she might fall. It could last a minute or more, might come and go for a couple of minutes. He thinks her eyes are foggy looking, and her eyelids start to shut. She is able to communicate duringsome of them, but it's not always coherent. She thinks she might be able to stop it, but Ever thinksthis is not the case. It can get aggravated by being upset. They are both sure that both arms and legs are shaking during this, with large amplitude shaking. Ever also witnessed the seizure in June,which was very different than these events. That one involved right arm movements, head and eye version to the right, then whole body shaking with clear unconsciousness. These diffuse tremors startedonly after the seizure in June, and initiation of levetiracetam. She also has been feeling much more irritability, and rage and more anxious recently. The shaking episodes seem to co-exist with feeling very anxious. She was taking Wellbutrin until about a week ago, and it was stopped apparently in part due to riskof increasing seizures. This was replaced with zyprexa recently. She thinks Dr Heredia her PCP prescribed it. Right shoulder pain has been severe recently, she says she is scheduled to have an injection in that shoulder. I was called by the ED for these visits at [facility], and suggested possibly that this could represent possible mood related, especially anxiety, side effect of levetiracetam. She and her friend do think that this is a possibility since the symptoms started after initiation of that medicine. After the consultation by phone from the ED, I suggested cross taper off levetiracetam onto zonisamide, and they are in the middle of that now. PAST MEDICAL HISTORY Past Medical History: Diagnosis [...] Outpatient Medications Marked as Taking for the 08/05/20 encounter (Office Visit) with Brayan Polk MD Medication Sig ??? acetaminophen (TYLENOL) 325 mg tablet Take 2 Tabs by mouth every 4 hours as needed for Pain. ??? acetaminophen (TYLENOL) 500 mg tablet Take 2 Tabs by mouth every 6 hours. ??? docusate sodium (COLACE) 100 mg capsule Take 1 Cap by mouth 2 times daily. ??? levETIRAcetam (KEPPRA) 1,000 mg tablet Take 1 Tab by mouth every 12 hours for 90 days. (Patienttaking differently: Take 500 mg by mouth every 12 hours. ) ??? melatonin 5 mg tablet Take 5 mg by mouth at bedtime. ??? methocarbamoL (ROBAXIN) 500 mg tablet Take 2 Tabs by mouth every 8 hours as needed for Muscle Spasms. ??? OLANZapine (ZYPREXA) 5 mg tablet TK 1 T PO QD ??? pantoprazole (PROTONIX) 40 mg tablet TK 1 T PO QD ??? polyethylene glycol (MIRALAX) 17 gram/dose powder Take 17 g by mouth daily. ??? QUEtiapine (SEROQUEL) 50 mg tablet Take 50 mg by mouth at bedtime. ??? senna (SENOKOT) 8.6 mg tablet Take 1 Tab by mouth 2 times daily as needed (Constipation). ??? zonisamide (ZONEGRAN) 100 mg capsule REVIEW OF SYSTEMS: 10-point ROS performed and was negative except as noted in HPI. PHYSICAL EXAMINATION BP 132/62 Pulse 72 Resp 20 General appearance: alert, cooperative, very anxious Skin: No rashes or lesions HEENT: NC/AT, no oral lesions Extremities: all extremities warm and well perfused, no peripheral edema NEUROLOGIC EXAM Alert, speech is fluent, good comprehension, mild dysarthria, normal content, though she does have difficulty focusing on the conversation and gets distracted and somewhat frustrated. Extraocular movements are intact, face symmetric, right homonymous hemianopsia, worse in both upper right quadrants. She holds her right arm in an antalgic position due to right shoulder pain, but has good blankmaker stren gth bilaterally. Rises from chair easily. Normal pinprick sensory examination both hands. Deep tendon reflexes present bilaterally in the arms, though mildly brisker in the right than the left. Mildly diminished at the Achilles bilaterally. Somewhat hesitant but stable independent casual gait. NEUROIMAGING STUDIES: Personally reviewed Noncontrast head CT 02/12/2020: Normal parenchyma, hyperdensity noted in the transverse sinus especially on the left. Noncontrast head CT 08/02/2020: Postsurgical changes on the left side as well as atrophy of the left temporoparietal region, and a small amount of subdural fluid collection with slight hyperdensity suggesting it may be aging blood. ASSESSMENT: Ynes White is a 50 y.o. female who unfortunately suffered a left intracerebral hemorrhage secondary to cerebral venous thrombus in January 2020, subsequently treated with evacuation and eventual cranioplasty. She represented in June 2020 with description of clear left hemispheric focal onset seizure. Chart review reveals this may have been related to worsening subdural fluid collection. Notably she was also on Wellbutrin at that time and that has recently been stopped in favor of olanzapine by her PCP. She then presented to the [facility] emergency department several times recently for episodes today which seem to be anxiety related whole body shaking, with preservation of awareness. They do not sound consistent with seizures. When I was called by the emergency department about her previously, I thought this might have been levetiracetam side effect, and she and her partner think today that may also be the case. For that reason they are in the middle of a transition off levetiracetam,onto zonisamide. Of note she also is off anticoagulation currently under the instructions of Dr. Piña, with a plan for short-term resumption. 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, and subsequent symptomatic focal onset seizure -Continue cross taper off levetiracetam onto zonisamide, currently on levetiracetam 500 mg twice daily and zonisamide 100 mg once daily, then in about 5 days they will stop levetiracetam and increasezonisamide up to 200 mg once daily. I wanted to avoid any hyponatremic effects of carbamazepine and oxcarbazepine considering recent brain injury, lacosamide would be likely too expensive. Could potentially consider valproate in the future. Lamotrigine might also be a reasonable option, but certainly would take quite a while to get up to goal dosage. -I tried to tell Ynes and Ever that now that we have a good idea about about these shaking episodes, and that she has been evaluated several times for them, that he can try to help her through themwithout bringing her to the emergency department each time. I also urged him to call our clinic when they happen in case that might help him also to be able to deal with them better. -I will contact her PCP on the possibility she might be able to be placed onto an SSRI, which mighthelp with her mood as well as possibly help with regain of motor function post stroke -I have sent a message to Dr. Piña letting him know that head CT was recently performed here at [facility] when she presented to the emergency department, in case that may be adequate for his decision of resumption of anticoagulation as soon as is safe. -She does have an upcoming appointment with Verenice Correa at [facility] neurology department, but they prefer to be seen here closer to home here at [facility] so I will Verenice a message to her that they can cancel an appointment unless there are circumstances I'm unaware of. -Follow-up in about 1 month Brayan Polk MD I spent 60 minutes face to face in this visit, greater than 50% of which was spent in counseling and/or coordination of care of recent intracerebral hemorrhage due to cerebral venous thrombus, with symptomatic seizure. documented in this encounter Plan of Treatment Upcoming Encounters Date Type Department Care Team (Late st Contact Info) Description 03/04/2025 14:00 EDT Telemedicine 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 Duplicate order 08/05/2020 oxyCODONE (ROXICODONE) 5 mg immediate release tablet Take 2 Tabs by mouth every 4 hours as needed for Pain. Daily Max: 60 mg Error 07/14/2020 08/05/2020 ondansetron (ZOFRAN-ODT) 4 mg disintegrating tablet Take 1 Tab by mouth every 8 hours as needed for Nausea. Error 07/14/2020 08/05/2020 Multivitamins with Minerals tablet tablet Take 1 Tab by mouth daily. Error 07/18/2020 08/05/2020 documented as of this encounter Historical Medications * This list may reflect changes made after this encounter. OLANZapine (ZYPREXA) 5 mg tablet Take 5 mg by mouth daily. Filled on 01/08/22 #90 tablets, per caregiver pt may take an extra' dose if needed 08/02/2020 2 pantoprazole (PROTONIX) 40 mg tablet TK 1 T PO QD 05/06/2020 1 zonisamide (ZONEGRAN) 100 mg capsule Take 200 mg by mouth at bedtime. 08/03/2020 0 added in this encounter Care Teams Concrete Floater Relationship Specialty Start Date End Date Romario Hairston MD [address] [place] [address] PCP - General 07/06/20 documented as of this encounter
--- OUTSIDE RECORDS SUMMARY | 2024-12-03 16:00 | XMS_ITS | Encounter Summary ---
Author Organization [facility] Address [address] [place] [id number] Care Team Providers Care Warehouse Associate Driver Name Role Phone Romario Hairston MD Primary Care Provider [phone] Reason for Visit * Auth/Cert Specialty Diagnoses / Procedures Referred By Mitch pruett Referred To Contact Diagnoses Cerebral edema (HCC-CMS) Procedures VA REPAIR SKULL DEFECT,>5 CM Cranioplasty - Autologous bone Referral ID Status Reason Start Date Expiration Date Visits Re quested Visits Authorized [id number] 1 1 Encounter Details Date Type Department Care Team (Late st Contact Info) Description 07/12/2020 11:50 EDT - 07/12/2020 15:[address] [facility] OR [address] [place] [id number] Claus Piña MD [address] [place] [address], [address] [place] [id number] Cranioplasty - Autologous bone [70921 (CPT??)] Surgery Details Date/Time Status Location OR Service Patient Class Case Class Case Type Trauma Case? 07/12/2020 1150 Posted [facility] OR [facility] Neurosurgery Surgery Admit H - Elective Panel 1 Procedure LRB Anes Op Region Wound Class Comments Cranioplasty - Autologous bone Left General Head Class I/ Clean Surgeon Surgeon Role Service Panel Claus Piña MD Primary Neurosurgery 1 Haile Brown MD Resident - Assisting Neurosurger y 1 Special Needs Bone in storage documented in this encounter Social History Tobacco Use Types Packs/Day Years Used Date Smoking Tobacco: Former Cigarettes 0.3 15 Smokeless Tobacco: Never Alcohol Use Standard Drinks/Week Comments Yes 0 (1 standard drink = 0.6 oz pur e alcohol) Interpersonal Safety Answer Date Record ed Physically [...] have Coronavirus / COVID-19? No / Unsure 07/07/2020 17:07 EDT documented as of this encounter Last Filed Vital Signs Vital Sign Reading Time Taken Comments Blood Pressure 141/91 07/12/2020 1122 EDT Pulse - - Temperature 36.2 ??C (97.2 ??F) 07/12/2020 1122 EDT Respiratory Rate 16 07/12/2020 1122 EDT Oxygen Saturation 100% 07/12/2020 1122 EDT Inhaled Oxygen Concentration - - Weight 77.2 kg (170 lb 3.1 oz) 07/12/2020 1122 E DT Height 162.6 cm (5' 4) 07/11/2020 0925 EDT Body Mass Index 29.21 07/11/2020 0925 EDT documented in this encounter Functional Status * Are you deaf or do you have serious difficulty hearing? Answer Date of Assessment Author No 03/02/2020 16:00 EDT Julissa Nunez RN * Are you blind or do you have serious difficulty seeing, even when wearing glasses? Answer Date of Assessment Author No 03/02/2020 16:00 EDT Julissa Nunez RN * Do you have serious difficulty walking or climbing stairs? (5 years old or older) Answer Date of Assessment Author No 03/02/2020 16:00 J CARLOST Julissa Nunez RN * Because of a physical, mental, or emotional condition, does this person have difficulty doing errands alone such as visiting a doctor's office or shopping? Answer Date of Assessment Author Yes 04/27/2020 11:05 J CARLOST Julissa Nunez RN documented as of this encounter Mental Status * Because of a physical, mental, or emotional condition, does this person have serious difficulty concentrating, remembering, or making decisions? Answer Entry Date Author Yes 04/27/2020 11:05 EDT Julissa Nunez RN documented in this encounter Discharge Summaries * Claus Piña MD - 07/14/2020 1015 EDT Neurosurgery Discharge Summary Primary Care Provider: Romario Hairston Attending Physician: Claus Piña MD Admit Date: 07/12/2020 Discharge Date: 07/14/2020 Disposition: Home or self care Problems and Procedures Admitting Diagnosis: No primary diagnosis found. Discharge Diagnosis: Skull defect Additional Problems Managed in the Hospital Active Hospital Problems Diagnosis Date Noted ??? *Cerebral edema ([facility]) 02/17/2020 ??? History of cranial surgery 07/12/2020 Resolved Hospital Problems No resolved problems to display. Principal Procedure: Left sided autologous cranioplasty (Dr. 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 Piña, 02/16/20) who presents for left sided autologous cranioplasty. Baseline is able to ambulate with assistance, mixed aphasia but able to communicate basic needs. Postoperatively did well, at neurologic baseline. Post-op head CT with no heme of significance, good cosmetic result. On exam, remained stably at her neurologic baseline and clinically stable. Appropriate for discharge POD2 with well controlled pain. Will discharge on 40daily lovenox, increase to home BID dose POD3. The patient's incision was closed with florinda and some single layer sutures (inferior posterior edge), which need removal in 2 weeks. Exam at discharge: Subjective: No complaints Objective: Sitting up, awake, alert Conversant Incision CDI No drift Door Person 5/5 Elbow flexion and extension 5/5 Wiggles toes to command bl Allergies and Immunizations Allergies Allergen Reactions ??? [...] Vitals for the past 12 hrs: BP Temp SpO2 07/14/20 0800 105/71 36.9 ??C (98.4 ??F) 94 % 07/14/20 0700 -- -- 92 % 07/14/20 0600 -- -- 93 % 07/14/20 0500 -- -- 93 % 07/14/20 0400 99/66 36.5 ??C (97.7 ??F) 93 % 07/14/20 0300 -- -- 94 % 07/14/20 0200 -- -- 93 % 07/14/20 0100 -- -- 92 % 07/14/20 0000 100/70 36.6 ??C (97.9 ??F) 93 % 07/13/20 2300 -- -- 91 % Test results still pending from this admission None Relevant Studies During Admission Ct Head Wo Contrast Result Date: 07/13/2020 EXAM: CT HEAD WO CONTRAST HISTORY: Cerebral hemorrhage suspected; s/p cranioplasty, evaluate for complication TECHNIQUE: CT head without contrast. COMPARISON: 07/12/[address], 03/23/2020 FINDINGS: PARENCHYMA: No acute infarct identified. No acute parenchymal hemorrhage. No mass or midline shift. 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 EXTRA- AXIAL SPACES: Post recent craniotomy flap replacement, trace extra-axial heterogeneous fluid and minimal pneumocephalus. No significant extra-axial collection. No extra-axial mass. VENTRICULAR SYSTEM: Unchanged sizeand configuration, with ex vacuo dilation of the left lateral ventricle atrium and temporal horn. No obstructive hydrocephalus. VESSELS: Limited evaluation without IV contrast. Normal density in the dural venous sinuses. BONES: Post recent craniotomy flap replacement. Degenerative temporomandibularjoints and partially included bilateral fixation screws in the rami. ORBITS: Unremarkable. PARANASAL SINUSES/MASTOID AIR CELLS: Predominantly clear. EXTRACRANIAL SOFT TISSUES: Unremarkable aside fromexpected postoperative findings and cutaneous florinda. 1. Expected postoperative findings, post left craniotomy flap placement. 2. 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 I have personally reviewed the images and the above interpretation and agree with the findings. Ct Head Wo Contrast Result Date: 07/12/2020 EXAM: CT HEAD WO CONTRAST HISTORY: Intracranial hemorrhage, follow up; preop planning; mask upside down TECHNIQUE: CT head without contrast. COMPARISON: MR venogram head 03/23/2020, CT head 03/18/2020,02/14/2020. FINDINGS: PARENCHYMA: Corresponding with location of the large left parenchymal hemorrhage, there is now extensive left temporal encephalomalacia. No findings of large vascular territory infarct. No acute parenchymal hemorrhage. No mass or midline shift. EXTRA-AXIAL SPACES: No extra-axial collection or mass. VENTRICULAR SYSTEM: Progressive ex vacuo enlargement of the left lateral ventricle atrium and temporal horn. Ventricle caliber is otherwise unchanged. No acute intraventricular hemorrhage. VESSELS: Limited evaluation without IV contrast. Grossly normal density in the dural venous sinuses. BONES: Unchanged left hemicraniectomy. Degenerative temporomandibular joints. ORBITS: Unremarkable. PARANASAL SINUSES/MASTOID AIR CELLS: Predominantly clear. EXTRACRANIAL SOFT TISSUES: Unremarkable aside from postoperative findings. 1. 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 2. No acute intracranial hemorrhage. I have personally reviewed the images and the above interpretation and agree with the findings. Xr Chest 2 Views Result Date: 07/08/2020 EXAM: RADIOLOGY/CHEST PA LAT EX. D/ (1327) CLINICAL INFORMATION: Z01.818 PRE-OP EXAM H/O TOBACCO USE INDICATION: Z01.818 PRE-OP EXAM, H/O TOBACCO USE . COMPARISON: Chest x-ray 12/11/2018.TECHNIQUE: 2 views of the chest were obtained. FINDINGS: There is a focal nodular opacity [id number] mm within the left lateral lower lobe. This is new compared to the previous examination. Furtherevaluation with CT scan of the chest is recommended. The lungs are otherwise clear. The cardiomediastinal silhouette and pulmonary vasculature are within normal limits. No acute bone or joint abnormality is seen. IMPRESSION: Left lower lobe nodular opacity measuring 10 mm raising the concern for a p ulmonary nodule. Further evaluation with CT scan of the chest is recommended. This report has been flagged for a noncritical result requiring follow-up on the [employer] PACS findings application, to be tracked by the [facility] tracking system. REPORT SIGNED IN OTHER VENDOR SYSTEM 07/08/2020 Reported By: Iron Romero MD CC: Transcribed Date/Time: 07/08/2020 (1539) Approver: Printed Date/Time: 07/08/2020 (7873) PAGE [address] Outside Images Neuro Result Date: 07/08/2020 This is a non-reportable exam. Imaging Required No Last Lab Results at Discharge BUN: Lab Results Component Value Date BUN 13 07/13/2020 Creatinine: Lab Results Component Value Date CREATININE 0.87 07/13/2020 CBC: Lab Results Component Value Date WBC 7.59 07/13/2020 RBC 3.97 07/13/2020 HGB 11.5 (L) 07/13/2020 HCT 34.6 (L) 07/13/2020 MCV 87 07/13/2020 MCH 29.0 07/13/2020 MCHC 33.2 07/13/2020 PLT 174 07/13/2020 DIFFTYPE Auto 07/13/2020 Electrolytes: Lab Results Component Value Date NA 137 07/13/2020 K 4.6 07/13/2020 CL 102 07/13/2020 CO2 27 07/13/2020 HGB: Lab Results Component Value Date HGB 11.5 (L) 07/13/2020 Discharge Follow Up Upcoming Appointments Aug 08, 2020 13:00 Telemedicine Visit with Verenice Correa APRN [facility] Adult Neurology - [facility] (--) [address] [facility] [id number] Oct 05, 2020 11:30 Telemedicine Visit 15 Mins with Evin Maria MD [facility] [place] [facility] - [facility] ([facility]) [address] [facility] [id number] Follow-up appointments and procedures Amb Consult/Follow Up Neurosurgery Reason for Request: radha sp cranioplasty 4 wks Authorizing Provider: Antonieta Pickett MD ERIN D'AGOSTINO, MD 07/14/2020 10:15 documented in this encounter Discharge Instructions * Discharge Instr - AVS First Page* Antonieta Pickett MD - 07/14/2020 7:48 EDT Take one daily dose of lovenox until 3 days after surgery, then can start taking home dose (50 twice per day). documented in this encounter Medications at Time [...] 12 hours. 60 Syringe 3 04/27/2020 0 melatonin 5 mg tablet Take 2 Tablets by mouth at bedtime. 4 methocarbamoL (ROBAXIN) 500 mg tablet Take 2 Tabs by mouth every 8 hours as needed for Muscle Spasms. 20 Tab 07/14/2020 0 ondansetron (ZOFRAN-ODT) 4 mg disintegrating tablet [...] Refills Last Filled Start Date End Date enoxaparin (LOVENOX) 40 mg/0.4 mL injection Inject 40 mg into the skin daily for 28 days. 28 Syringe 07/14/2020 0 ondansetron (ZOFRAN-ODT) 4 mg disintegrating tablet Take 1 Tab by mouth every 8 hours as needed for Nausea. 15 Tab 07/14/2020 0 oxyCODONE (ROXICODONE) 5 mg immediate release tablet Take 2 Tabs by mouth every 4 hours as needed for Pain. Daily Max: 60 mg 15 Tab 07/14/2020 0 methocarbamoL (ROBAXIN) 500 mg tablet Take 2 Tabs by mouth every 8 hours as needed for Muscle Spasms. 20 Tab 07/14/2020 0 docusate sodium (COLACE) 100 mg capsule Take 1 Cap by mouth 2 times daily. 07/14/2020 2 acetaminophen (TYLENOL) 500 mg tablet Take 2 Tabs by mouth every 6 hours. 07/14/2020 4 documented in this encounter Discharge Disposition Disposition Code Departure Means Destination Home-Health Care [facility] documented in this encounter Progress Notes * Mar Strange - 07/14/2020 1135 EDT Case Management Note: Received a call from [facility] Liaison regarding need for Resuming HH orders for patient with [facility]. Contatced Neurosurgery Resident, Dr. Langley and HH orders have been entered for patient for Nursing,OT, PT and WREATH MACHINE OPERATOR. Mar Strange semiconductor assembler ll Case Management and Social Work [address] [phone] Pager # [phone] * Darwin Willoughby RN - 07/14/2020 1123 EDT The patient's sister, Lucille, came to shredder picker the patient. Discharge instructions were reviewed with Lucille. She verbalized understanding the changes to the medication list, the follow up appointments dates, and the post-op instructions. The patient voided prior to discharge. * Darwin Willoughby RN - 07/14/2020 0925 EDT Patient is being discharged home. She lives with her male friend Ever. Ever will be present for discharge instructions and to drive the patient home. He has previously administered the patients Lovenoxinjections and will do so after this admission. Discharge instructions include medication regiment,follow up appointments, post-op instructions, and a list of when to call her MD. * Mar Strange - 07/13/2020 1528 EDT Initial Case Management/Social Work Assessment and Discharge Plan/Readmission Risk Assessment REASON FOR ADMISSION: Cerebral edema ([facility]) POD #1 FTP cranioplasty Patient understands reason for admission: Yes PATIENT CONTACT INFO VERIFIED: Yes PATIENT ADDRESS VERIFIED: Yes Type of housing (single family, condo, apartment, jail, single room occupancy, [facility] funded hotel room, group jail) - Apartment Who does the patient live with? S/O Ever Linda Does the patient have access to their own bedroom/bathroom/kitchen - or is it shared with others? Shared LIVING ARRANGEMENTS AND ACCESSIBILITY ISSUES: Living Arrangements: Apartment, Spouse / significant other Levels: 1 Stairs to enter: 1 Handicap access: Grab bars Bathroom located on bedroom level?: Yes What in home social supports are available to the patient? Spouse / significant other, Family member(s) Is 24/7 care available? Yes ADVANCED DIRECTIVES, POA &/or COLST IN PLACE: Healthcare Directive: No, patient does not have advance directive for healthcare treatment Information Provided on Healthcare Directives: No Information on Healthcare Directives Requested: No DIRECTIVES FOR FINANCES: Directive For Finances: No TRANSPORTATION: Transportation: Family CULTURAL, [place] and/or LANGUAGE factors affecting health care/discharge planning: Spiritual/Cultural Requests: None Any factors affecting health care/discharge planning?: No Insurance in Place: Yes Medical Insurance: Yes Type of insurance: Medicare, Other (See Comments)(Applied for Disability a few months ago and pending approval.) Medicare type: A, B Referred to patient financial services: No Nutrition: DISCHARGE RISK ASSESSMENT: Requires assistance with medication management;Polypharmacy, > 7 medications;Acute/chronic wound or pressure ulcer;Requires assistance with ADLs/IADLs Total # selected above: Score of 2 - 4: This patient is at MODERATE RISK for re-hospitalization Tentative plan to address the risk of re-hospitalization for those at HIGH MODERATE RISK: Refer to skilled home care services RAPT TOOL: Age: 50-65 Gender: Female Ambulation distance: Housebound most of the time Gait device: Crutch/Walker Community Services: Two or more times a week Will you live with someone who will care for you?: Yes RAPT Tool Score: 6 Patient expects to be discharged to: Home SBIRT: SASQ (Single Alcohol Screening Question) How many times in the past year have you had 4 or more drinks in a single day?: Never How many times in the past year have you used an illegal drug or used a prescription medication fornon-medical reasons?: Never Intervention in place/initiated?: No, not indicated FUNCTIONAL STATUS: Activities patient requires assistance: Taking Medications, Food preparation/shopping Assistive Device: Grab bars, Cane, Front wheel walker, Shower chair COMMUNITY RESOURCES/SUPPORTS: Primary Care Provider: Romario Hairston PCP Verified: Yes Specialists: Neurology Type of Home Health Services: Home PT/OT, Nurse visit, Other (Comment)(WREATH MACHINE OPERATOR) DME Provider: Pharmacy: [id number] - [place], [place] - [address] [place] [address] AT SEC OF [facility] & [address] [phone] [facility] - [place] [id number] [address] [address] Home Health: [facility] Other: POST HOSPITAL TRANSITION PLAN: Met with patient at bedside and also contacted Ever Linda - S/O Friend to review case management assessment. Ever Linda lives with patient and provides / support and transportation. [facility] has been providing PT, OT, WREATH MACHINE OPERATOR and Nursing and will resume when discharged. Patient applied for Disability a few months ago and would like to see if she has been approved. Case Management will continue to follow for care coordination. MAR STRANGE RN CM 07/13/2020 15:28 * Shivam Alcantar MD - 07/13/2020 1346 EDT NEUROSURGERY BRIEF NOTE Subgaleal LUPE removed at bedside. Drain quite difficult to removed but able to move slowly and smoothly with time. Minimal drainage observed from exit site. Drain site closed with 1 staple. Patient tolerated well. SHIVAM ALCANTAR MD Neurosurgery Resident 07/13/2020 13:46 Neurosurgery Service Pager [phone] * Shivam Alcantar MD - 07/13/2020 0902 EDT Neurosurgery Progress Note Problems/ Previous venous thrombosis complicated by hemorrhage requiring craniectomy and evacuation of IPH (02/16/20, Dr. Piña) Procedures/ Left sided autologous cranioplasty (Dr. Piña, 07/12/20) 24 hr/ POD1 from L cranioplasty Drain 245 (100) Na 137 from 138 HCT AM good Subjective/ Head feels a little better. Objective/ BP 99/70 Temp 37 ??C (98.6 ??F) Resp 12 Ht 162.6 cm (64) Wt 77.2 kg (170 lb 3.1 oz) MdT980% BMI 29.21 kg/m?? 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 Piña, 02/16/20) who presents for left sided autologous cranioplasty. Baseline is able to ambulate with assistance, mixed aphasia but able to communicate basic needs. Postoperatively doing well, at neurologic baseline. Post-op head CT looks great. On exam, she is at her neurologic baseline and clinically stable. Will remove drain this afternoon and TTF. Plan/ TTF this afternoon after drain removal q1 hour neuro checks until above HOB >30 degrees Will remove drain this afternoon Will start ppx lovenox 40 qd tomorrow (07/14/20) SHIVAM ALCANTAR MD Neurosurgery resident 07/13/2020 9:02 Page [phone] with questions * Claus Piña MD - 07/13/2020 0829 EDT POD 1 8.18.20 L FTP cranioplasty 3.24.20 L FTP craniectomy, ICH removal, venous thrombosis Doing well aside from pain at surgical site. No new deficits. CT looks very good. Plan - continue drain until this afternoon, transfer to floor. Resume proph lovenox tomorrow, next day full dose. Claus Piña MD FACS FAANS Professor, Neurological Surgery * Cathryn King, RT - 07/12/2020 2040 EDT Respiratory Consult/Progress Note Indications for Respiratory therapy: ICU admission, initial consult Data Vitals: Heart Rate: (!) 108 BPM, Resp: 18, SpO2: 99 % FIO2/O2 Device: , , O2 Device: None, RT Orders: Q12 respiratory care evaluation Protocol Scoring: Bronchodilator/Inhalation Therapy Frequency Bronchodialator - Clinical Indications: No clinical indications Breath Sounds: Clear Response: No change / no treatment Pulse: >100 Resp Rate: 18-25 SOB: None Total Score: 2 Comment:: Not indicated Airway Clearance Therapy Frequency Airway Clearance - Clinical Indications: No clinical indications Breath Sounds: Clear / diminished Sputum: Small (tsp) / None Consistency: None Cough Effort: Strong/ non-productive Color: None Total Score: 0 Comment: Not indicated Hyperinflation Therapy Frequency Hyperinflation - Clinical Indications: Prevent atelectasis Breath Sounds: Clear Surgery: No X-Ray / Atelectasis: No O2 Requirements: O2 at baseline Mobility Status: Mobile / at baseline Total: 0 Comment: Not indicated Action/Events Pt has no respiratory hx other than being a previous smoker. Breath sounds are clear on room air. No respiratory needs at this time. RT PEYTON 07/12/20 * Antonieta Pickett MD - 07/12/2020 6393 EDT Neurosurgery Post Procedure Note Problems/ Previous venous thrombosis complicated by hemorrhage requiring craniectomy and evacuation of IPH (02/16/20, Dr. Piña) Procedures/ Left sided autologous cranioplasty (Dr. Piña, 07/12/20) Subjective/ Endorses R shoulder pain (chronic) Mild headache Objective/ BP 133/73 Temp 37 ??C (98.6 ??F) Resp 24 Ht 162.6 cm (64) Wt 77.2 kg (170 lb 3.1 oz) SpO2 96% BMI 29.21 kg/m?? 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 Piña, 02/16/20) who presents for left sided autologous cranioplasty. Baseline is able to ambulate with assistance, mixed aphasia but able to communicate basic needs. Postoperatively doing well, at neurologic baseline. Plan/ q1 hour neuro checks HOB >30 degrees Drain care Head CT in AM Early resumption of lovenox 40mg daily per hematology recs ANTONIETA PICKETT MD Neurosurgery resident 07/12/2020 16:33 Page [phone] with questions documented in this encounter H&P Notes * Haile Brown MD - 07/12/2020 113 EDT The preoperative history and physical which was performed within 30 days of this procedure has beenreviewed and the clinically appropriate elements of the physical examination have been repeated. There are no changes to the documented history and physical or if so such changes are documented below. No change in symptoms leading to this surgery, denies wound drainage or breakdown No recent change in health such as systemic or skin infections, chest pain, heart attack, strokes etc Lovenox stopped evening of 07/10/20, denies recent aspirin or NSAID use No obvious skin lesions, wound well healed Haile Brown MD Neurosurgery Resident 07/12/2020 11:36 Neurosurgery Service Pager [phone] Cosigned by Claus Piña MD at 07/12/2020 12:54 EDT Source Note - ILLUMINATOR, SCAN 2 - 07/11/2020 11:24 EDT documented in this encounter Nursing Notes * Reid Naik RN - 07/12/2020 5171 EDT Preop Covid DOS screening questionnaire Please document by exception (only check those that apply). Have you had any of the following symptoms recently? No Yes Chronic ? Cough Shortness of breath or difficulty breathing Fever Chills Fatigue Muscle or body aches Severe Headache New loss of taste or smell Sore throat Congestion or runny nose Rash Nausea, vomiting, or diarrhea (rare in adults. More common in children) Were you covid tested? Yes If yes, have you self-isolated/quarantined since your test? Yes See admission vital signs documentation for admission temperature. documented in this encounter OR Notes * OR PreOp - Hina Preston RN - 07/12/2020 7751 EDT COVID 19 Screening Perioperative PreOp Surgical Waiting Area Screening: Patient and Family will be screened at designated points of entry to [facility] Patient and Family will be screened again at entrance to Surgical Waiting Area by PreOp Screening RNs Smart phrase: .SWACOVIDS ??? Confirm patient and visitor have a mask (ensure if patient has homemade mask that it fits appropriately) ??? PreOp Screening RN asks screening questions including (recent or chronic): - Please document by exception (only check those that apply). Have you had any of the following symptoms recently? No to the following Yes Chronic ? Cough Shortness of breath or difficulty breathing Fever Chills Fatigue Muscle or body aches Headache New loss of taste or smell Sore throat Congestion or runny nose Rash Nausea, vomiting, or diarrhea (rare in adults. More common in children) ? ? Temperature assessed: Temp > 38.0 is considered febrile ??? If patient or visitor screens positive for any symptoms: (consistent with entry screening procedures) 1. Ask the patient if they have been recently tested for COVID- 19 within the past 48hr and verify COVID test status 2. Confirm the symptom is not new within 48 hour/testing period - If negative result and no new symptoms since being testing, you do not need to page anesthesia toassess and should proceed as regular admission (NOT PUI) - If no result and/or new symptom since 48 hour/testing period proceed as PUI (Steps 3-4 below) 3. Place patient and family in consult room. 4. Page anesthesia charge to come and evaluate patient. After assessment the Anesthesia Charge needs to collaborate with the Surgeon to create a plan/recommendation as to whether surgery should proceed. See below for possible recommendations and guidelines. ??? Anesthesia in collaboration with Surgery Team recommends: ??? Surgery is deemed non emergent/non urgent. Proceed to cancel surgery: ??? Follow cancellation protocol - procedure not performed -Use COVID smart phrase to document planfor cancellation (.SWACOVIDS) ??? The patient needs formal testing for COVID at one of the ambulatory sites - Patient's primary care to order formal testing and monitor results ??? Surgery is deemed emergent/urgent. Proceed with surgery and treat patient as PUI: ??? Prior to starting patient care, Care team huddle to take place. Ensure everyone understands plan of course/care for patient. Care Team includes but not limited to: PreOp TL, PreOp bedside RN, PACU pharmacy informaticist, Anesthesia and Surgeon. Managers as needed. ??? For stable PUI patients, Droplet Precautions will be donned by staff. This assumes that NO aerosolizing procedure is being conducted. (See attachment of aerosolizing events) ??? PreOp TL confirm PreOp Care Team (Clean and Dirty RN) ensures negative pressure room and fully stocked isolation cart are available. PreOp Care team responsible for room set up. ??? PreOp Receiving (?ecoming dirty?? ) RN to receive patient from [facility] in Droplet Precaution PPE and transport patient to designated room. Ensure patient is wearing a mask prior to transport. ??? PreOp Screening RN to document using [employer] smart phrase (.SWACOVIDS) ??? If patient is stable PUI, Dirty RN is not required to stay in room for duration of care. PPE must be doffed prior to exiting the room, and hand hygiene performed. New PPE will need to be donned prior to reentering room- minimize exiting and reentering to conserve PPE. ??? If deemed patient needs to be treated as PUI- visitor must return to their vehicle and wait forphone call unless special circumstances (Child, cognitive impairment, and medical interpreter). Pt temp: Visitor Temp: Visitor Name: (If visitor is asked to wait in vehicle, please document visitor contacts in Epic) RN's to explain visitor policy: Visitor Policy: OP- one non-sick escort in waiting room, no visitors/escort in PeriOp Exceptions: Child-1 parent, special needs- 1 caregiver For safety concerns on ride home: second parent or caregiver may come to hospital but will have to wait in cell phone lot IP- One non-sick visitor/escort in waiting room, no visitors/escort in PeriOp. One designated visitor is allowed to visit the patient on the in patient unit. Pediatric patient: ??? Both parents can come with child DOS, one is allowed with child in PreOp/PACU, one has to wait in the waiting room Children under age of 16 y.o. are not permitted. Only ADA service animals are permitted into the hospital. All other animals, including previously approved therapy/support animals, are not allowed at this time. (No animals will be allowed into Preop, OR, or PACU) * OR PreOp - Hina Preston RN - 07/12/2020 1155 EDT The Patient Declines testing for prior to the Surgery/ Procedure. The following were Explained to the Patient: ?? Testing is done to minimize the risk of potential adverse effects of Anesthesia/ Surgery on a developing fetus ?? It is a [facility] Policy to test all females who are having menstrual periods ?? It is for their safety and that of a developing fetus should they be ?? The Patient does have the right to decline and understands the risks of not obtaining the test The Surgeon tip and Anesthesiologist yes were notified. * OR Surgeon - Claus Piña MD - 07/12/2020 1057 EDT OPERATIVE REPORT SERVICE DATE: 07/12/2020 PREOPERATIVE DIAGNOSIS: Cranial defect. POSTOPERATIVE DIAGNOSIS: Cranial defect. PROCEDURE: Left frontal, temporal and parietal cranioplasty greater than 5 cm, using autologous bone. SURGEON: Claus Piña MD BIZTALK DEVELOPER: Haile Brown MD ANESTHESIA: General. 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 She has done well in recovery but with significant residual speech deficits. She now presents after the wound is well healed for a return of her bone flap which has been kept sterilely in the freezer. NARRATIVE: The patient was brought into the operating room and after a checklist was completed, shewas administered general anesthesia via endotracheal tube. She was positioned supine on the operating room table with a roll under the left shoulder and the head resting on the horseshoe headrest. A strip of hair was clipped around the previous incision site on the left side, encompassing frontal, temporal, and parietal regions, and then the scalp and hair were prepared with Hibiclens, alcohol, and DuraPrep and sterilely draped. Local anesthetic was injected. An incision was made along the previous incision line. The bone edge was identified and a plane created under the temporalis muscle fascia and over the epidural space to reflect the entire scalp flap anteriorly. In this process, we didsee some thinning of the dura centrally and a small amount of CSF leak, which stopped. Later, we covered this area with DuraGen. Hemostasis was achieved throughout and the bone flap was then returnedto its normal position with the plating system. Plates had been previously placed on the flap at the time of the initial surgery. It fit extremely well with no modification necessary. A central epidural tack-up suture was tied. A subgaleal drain was placed, exiting through a separate site. The wound was thoroughly irrigated and closed with 2-0 Vicryl and 3-0 Vicryl for the galea and florinda for the skin. At the posterior inferior portion of the wound, there was enough tension on the incision line that the galea would not hold a stitch well enough despite loosening of the surrounding scalp. This small area was then closed with single layer interrupted nylon sutures. The patient was awakened from general anesthesia and extubated. ESTIMATED BLOOD LOSS: 80 mL COMPLICATIONS: There were no identified complications. Unless otherwise noted, there were no complications, no blood loss, no cultures obtained, no specimens removed, and no drains retained. Claus Piña MD / TC/DF Confirmation: [id number] Dictation ID: [id number] cc: * Preprocedure Instructions - Hina Preston RN - 07/11/2020 0944 EDT Ynes White has been instructed as follows regarding medication administration for the day of the scheduled procedure. Date of Surgery: 07/12/20 Instructions for Taking Medications Day of Surgery Medication Sig Last Dose Hold DOS Take DOS acetaminophen (TYLENOL) 325 mg tablet Take 2 Tabs by mouth every 4 hours as needed for Pain. Yes bupropion HCl (WELLBUTRIN XL ORAL) Take by mouth. Yes enoxaparin (LOVENOX) 60 mg/0.6 mL injection Inject 50 mg into the skin every 12 hours. Holding per hematology 07/11 and 07/12 melatonin 5 mg tablet Take 5 mg by mouth at bedtime. Holding for surgery pantoprazole (PROTONIX) 20 mg tablet Take 40 mg by mouth daily. Yes polyethylene glycol (MIRALAX) 17 gram/dose powder Take 17 g by mouth daily. x QUEtiapine (SEROQUEL) 50 mg tablet Take 50 mg by mouth at bedtime. HS senna (SENOKOT) 8.6 mg tablet Take 1 Tab by mouth 2 times daily as needed (Constipation). x documented in this encounter Miscellaneous Notes * Plan of Care - Kendra Cowart RN - 07/14/2020 3011 EDT Problem: Daily Care Plan Goals Goal: Care Plan Documentation Flowsheets (Taken 07/13/20201999) Area of Focus: Neuro Status Note: Data: Patient with previous venous thrombosis complicated by hemorrhage requiring craniectomy and evacuation of IPH (02/16/20) and is now POD#1 s/p left sided autologous cranioplasty 07/12/20. Patient continues to have expressive Aphasia but is able to communicate basic needs, she is oriented to selfdate, inconsistent with place at times she is unable to tell and will say I know where I am I just cant say it yet. Moves all extremities. Left Cranioplasty site with florinda C/D/I. Afebrile BP within goal. On room air with Spo2 >92%. Scopolamine patch on for nausea. Repositions self in bed. Contact guard assist OOB to chair. States I'm doing okay when asked about pain. Action: Q4hr neuro checks and V/S Care clustered to promote periods of rest Scheduled Tylenol, Robaxin and Gabapentin given for pain see Emar for administration times Response: No c/o NV overnight. VSS. Neuro status remain unchanged. Awaiting transfer to [facility] 5. Will continue to monitor. KENDRA COWART RN 07/14/2020 5:44 * Plan of Care - Kendra Cowart RN - 07/13/2020 0317 EDT Problem: Daily Care Plan Goals Goal: Care Plan Documentation Outcome: Ongoing Flowsheets (Taken 07/12/20201999) Area of Focus: Neuro Status Note: Data: Patient with previous venous thrombosis complicated by hemorrhage requiring craniectomy and evacuation of IPH (02/16/20) and is now POD#1 s/p left sided autologous cranioplasty 07/12/20. Patient has expressive aphasia she states her name, date and is inconsistent with place states she knows where she is but unable to get it out, will so,etimes responds I'm where the doctors work. Patientobeys commands, DOWNS with limited movement to right upper due to pain. PERRL. Decreased sensation toRUE and RLE. Left cranioplasty site with florinda C/D/I LUPE drain to suction drain with bloody-serosang output. Patient afebrile in NSR-ST (). On room air with Spo2 >92%. Reyes catheter in place with good urine output. Action: 2029 Patient crying constantly stating she is in pain despite receiving Fentanyl Q1hr, oxycodone and Tylenol. Spoke with [facility] and new order obtained for Robaxin, Gabapentin, ramelteon and Oxycodone dosage increased see Emar for administration times Patient seemed more calm and stating the pain is better after receiving gabapentin and robaxin Neuro checks done hourly Repositions self to partial assist with repositioning Care clustered to promote periods of rest [address] head done Response: No more episodes of crying overnight for pain. Patient states it is much better thank you. No changes noted in neuro status, continues to have expressive aphasia but is able to make conversation. VSS will continue to monitor KENDRA COWART RN 07/13/2020 3:17 * Brief Op Note - Haile Brown MD - 07/12/2020 1517 EDT Neurosurgery Operative Note Pre-Op Diagnosis: Left cranial defect Post-Op Diagnosis: Left cranial defect Procedure: Left sided autologous cranioplasty Surgeon: Claus Piña MD Slate Cutter: Haile Brown MD Findings: Well approximated bone flap. No CSF encountered during case Complications: None Anesthesia: General EBL: 75cc IV Fluids: 750cc Urine Output: 250cc Culture/Specimen: None Drain/Implant: Subgaleal LUPE drain Skin: Florinda; inturrupted nylon at posteroinferior aspect of incision Disposition: SICU Plan: q1 hour neuro checks HOB >30 degrees Drain care Head CT in AM Early resumption of lovenox 40mg daily per hematology recs Haile Brown MD Neurosurgery Resident 07/12/2020 15:18 Pager [phone] documented in this encounter Plan of Treatment Upcoming Encounters Date Type Department Care Team (Late st Contact Info) Description 03/04/2025 14:00 EDT Telemedicine [facility] [address] [place] [address] [phone] Brayan Polk MD [address] [place] [address] [place] [phone] 07/14/2025 14:30 EDT Office Visit [facility] Hematology & Oncology - [address] [address] Evin Maria MD [address] [place] [address], [address] [place] [address] Pending Results Name Type Priority Associated Diagnoses Date /Time PRE-OP BLOOD BANK DRAW Blood Bank Routine 11:50 EDT Scheduled Orders Name Type Priority Associated Diagnoses Orde r Schedule PRE-OP BLOOD BANK DRAW Blood Bank Routine One Time for 1 Occurrences starting 07/12/2020 until 07/12/2020 documented as of this encounter Procedures Procedure Name Priority Date/Time Associated Diagnosis Comments ECG REPORT - SCANNED 07/19/2020 7:[address] HEAD WO CONTRAST Routine 07/13/2020 5 :23 EDT COMPLETE BLOOD COUNT AND DIFFERENTIAL Routine 07/13/2020 3:24 EDT BUN Routine 07/13/2020 3:24 EDT CREATININE Routine 07/13/2020 3:24 EDT ELECTROLYTES Routine 07/13/2020 3:24 EDT RESPIRATORY CARE EVALUATION ONLY Routine 07/12/2020 20:42 EDT CRANIOPLASTY, FOR SKULL DEFECT GREATER THAN 5 CM IN DIAMETER 07/12/2020 12:33 EDT Cerebral edema ([facility] Special Needs Bone in storage CT HEAD WO CONTRAST STAT 07/12/2020 1 2:19 EDT TYPE AND SCREEN Today 07/12/2020 11:50 EDT documented in this encounter Results * ECG REPORT - SCANNED (07/19/2020 7:47 EDT) 07/19/2020 7:47 EDT us Scan 2 Hand [employer] PROCEDURE/MINOR SURGICAL OR DERABLES Final Result * CT HEAD WO CONTRAST (07/13/2020 5:23 EDT) Anatomical Region Laterality Modality Head Computed Tomogra phy 07/13/2020 10:5 7 EDT Impressions 07/13/2020 10:57 EDT 1. Expected postoperative findings, post left craniotomy flap placement. 2. 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 I have personally reviewed the images and the above interpretation and agree with the findings. Narrative 07/13/2020 10:57 EDT EXAM: CT HEAD WO CONTRAST HISTORY: Cerebral hemorrhage suspected; s/p cranioplasty, evaluate for complication ?? TECHNIQUE: CT head without contrast. COMPARISON: 07/12/[address], 03/23/2020 FINDINGS: PARENCHYMA: No acute infarct identified. No acute parenchymal hemorrhage. No mass or midline shift. 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 EXTRA-AXIAL SPACES: Post recent craniotomy flap replacement, trace extra-axial heterogeneous fluid and minimal pneumocephalus. No significant extra-axial collection. No extra-axial mass. VENTRICULAR SYSTEM: Unchanged size and configuration, with ex vacuo dilation of the left lateral ventricle atrium and temporal horn. No obstructive hydrocephalus. VESSELS: Limited evaluation without IV contrast. Normal density in the dural venous sinuses. BONES: Post recent craniotomy flap replacement. Degenerative temporomandibular joints and partially included bilateral fixation screws in the rami. ORBITS: Unremarkable. PARANASAL SINUSES/MASTOID AIR CELLS: Predominantly clear. EXTRACRANIAL SOFT TISSUES: Unremarkable aside from expected postoperative findings and cutaneous florinda. Procedure Note Shawn Anton MD - 07/13/2020 EXAM: CT HEAD WO CONTRAST HISTORY: Cerebral hemorrhage suspected; s/p cranioplasty, evaluate forcomplication TECHNIQUE: CT head without contrast. COMPARISON: 07/12/[address], 03/23/2020 FINDINGS: PARENCHYMA: No acute infarct identified. No acute parenchymal hemorrhage. No mass ormidline shift. Unchanged extensive left temporal encephalomalacia related to priorhemorrhage. EXTRA-AXIAL SPACES: Post recent craniotomy flap replacement, trace extra-axial heterogeneousfluid and minimal pneumocephalus. No significant extra-axial collection.No extra-axial mass. VENTRICULAR SYSTEM: Unchanged size and configuration, with ex vacuo dilation of the leftlateral ventricle atrium and temporal horn. No obstructivehydrocephalus. VESSELS: Limited evaluation without IV contrast. Normal density in the dural venoussinuses. BONES: Post recent craniotomy flap replacement. Degenerative temporomandibularjoints and partially included bilateral fixation screws in the rami. ORBITS: Unremarkable. PARANASAL SINUSES/MASTOID AIR CELLS: Predominantly clear. EXTRACRANIAL SOFT TISSUES: Unremarkable aside from expected postoperative findings and cutaneousstaples. IMPRESSION 1. Expected postoperative findings, post left craniotomy flap placement. 2. 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 I have personally reviewed the images and the above interpretation andagree with the findings. us Haile Brown MD IMG CT ORDERABLES Final Resu lt * (ABNORMAL) COMPLETE BLOOD COUNT AND DIFFERENTIAL (07/13/2020 3:24 EDT) WBC 7.59 4.00 - 12.40 K/cmm 07/13/2020 4:16 [facility] RBC 3.97 3.86 - 5.04 M/cmm 07/13/2020 4:16 [facility] Hemoglobin 11.5(L) 11.6 - 15.2 gm/dL 07/13/2020 4:16 [facility] HCT 34.6(L) 34.9 - 44.4 % 07/13/2020 4:16 [facility] MCV 87 81 - 98 fl 07/13/2020 4:16 [facility] MCH 29.0 26.7 - 33.3 pg 07/13/2020 4:16 [facility] MCHC 33.2 32.1 - 35.9 gm/dL 07/13/2020 4:16 [facility] RDW-CV 13.2 <14.7 % 07/13/2020 4:16 [facility] RDW-SD 41.7 <50.4 fl 07/13/2020 4:16 [facility] PLT 174 141 - 377 K/cmm 07/13/2020 4:16 [facility] MPV 11.0 9.5 - 12.7 fl 07/13/2020 4:16 [facility] % Neutrophils 63.8 % 07/13/2020 4:16 [facility] % Lymphocytes 28.7 % 07/13/2020 4:16 [facility] % Monocytes 4.9 % 07/13/2020 4:16 [facility] % Eosinophils 2.0 % 07/13/2020 4:16 [facility] % Basophils 0.3 % 07/13/2020 4:16 [facility] % Immature Grans 0.3 % 07/13/20 4:16 [facility] Absolute Neutrophils 4.85 2.20 - 8.85 K/cmm 07/13/2020 4:16 [facility] Absolute Lymphocytes 2.18 1.09 - 3.30 K/cmm 07/13/2020 4:16 [facility] Absolute Monocytes 0.37 0.10 - 0.80 K/cmm 07/13/2020 4:16 EDT [facility] Absolute Eosinophils 0.15 0.03 - 0.61 K/cmm 07/13/2020 4:16 EDT [facility] ABS Basophils 0.02 0.01 - 0.11 K/cmm 07/13/2020 4:16 EDT [facility] Absolute Immature Grans 0.02 0.00 - 0.06 K/cmm 07/13/2020 4:16 EDT [facility] Type of Differential: Auto 07/13/2020 4:16 EDT [facility] Blood VENOUS BLOOD / Unknown Venipuncture / Unknown 07/13/2020 3:24 EDT 07/13/2020 4:07 EDT us Haile Brown MD PACKAGES & DNA PROBE ORDERAB LES Final Result Performing Organization Address [facility] [[email or web address]] Co de Phone Number [facility] [address] [place] [address] * CREATININE (07/13/2020 3:24 EDT) Creatinine 0.87 0.52 - 1.04 mg/dL 07/13/2020 4:24 EDT [facility] eGFR 77 >60 mL/min/1.7 3m2 07/13/2020 4:24 EDT [facility] Comment:eGFR calculated mickey redd CKD-EPI equation for non- Americans. Multiply eGFR by 1.16 for patients. Blood VENOUS BLOOD / Unknown Venipuncture / Unknown 07/13/2020 3:24 EDT 07/13/2020 4:07 EDT us Haile Brown MD CHEMISTRY & BLOOD GAS ORDERA BLES Final Result Performing Organization Address [facility]/ZIP Co de Phone Number [facility] [address] [place] [address] * BUN (07/13/2020 3:24 EDT) BUN 13 10 - 26 mg/dL 07/13/2020 4:24 EDT [facility] Blood VENOUS BLOOD / Unknown Venipuncture / Unknown 07/13/2020 3:24 EDT 07/13/2020 4:07 EDT us Haile Brown MD CHEMISTRY & BLOOD GAS ORDERA BLES Final Result Performing Organization Address [facility] de Phone Number [facility] [address] [place] [address] * ELECTROLYTES (07/13/2020 3:24 EDT) Pathologist [facility] Sodium 137 136 - 145 mEq/L 07/13/2020 4:24 EDT [facility] Potassium 4.6 3.5 - 5.0 mEq/L 07/13/2020 4:24 EDT [facility] Chloride 102 96 - 110 mEq/L 07/13/2020 4:24 EDT [facility] CO2 Total 27 22 - 32 mEq/L 07/13/2020 4:24 EDT [facility] Blood VENOUS BLOOD / Unknown Venipuncture / Unknown 07/13/2020 3:24 EDT 07/13/2020 4:07 EDT us Haile Brown MD CHEMISTRY & BLOOD GAS ORDERA BLES Final Result Performing Organization Address [facility] de Phone Number [facility] [address] [place] [address] * CT HEAD WO CONTRAST (07/12/2020 12:19 EDT) Anatomical Region Laterality Modality Head Computed Tomogra phy 07/12/2020 12:5 8 EDT Impressions 07/12/2020 12:58 EDT 1. 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 2. No acute intracranial hemorrhage. I have personally reviewed the images and the above interpretation and agree with the findings. Narrative 07/12/2020 12:58 EDT EXAM: CT HEAD WO CONTRAST HISTORY: Intracranial hemorrhage, follow up; preop planning; mask upside down ?? TECHNIQUE: CT head without contrast. COMPARISON: MR venogram head 03/23/2020, CT head 03/18/2020, 02/14/2020. FINDINGS: PARENCHYMA: Corresponding with location of the large left parenchymal hemorrhage, there is now extensive left temporal encephalomalacia. No findings of large vascular territory infarct. No acute parenchymal hemorrhage. No mass or midline shift. EXTRA-AXIAL SPACES: No extra-axial collection or mass. VENTRICULAR SYSTEM: Progressive ex vacuo enlargement of the left lateral ventricle atrium and temporal horn. Ventricle caliber is otherwise unchanged. No acute intraventricular hemorrhage. VESSELS: Limited evaluation without IV contrast. Grossly normal density in the dural venous sinuses. BONES: Unchanged left hemicraniectomy. Degenerative temporomandibular joints. ORBITS: Unremarkable. PARANASAL SINUSES/MASTOID AIR CELLS: Predominantly clear. EXTRACRANIAL SOFT TISSUES: Unremarkable aside from postoperative findings. Procedure Note Sherman Bryant MD - 07/12/2020 EXAM: CT HEAD WO CONTRAST HISTORY: Intracranial hemorrhage, follow up; preop planning; mask upsidedown TECHNIQUE: CT head without contrast. COMPARISON: MR venogram head 03/23/2020, CT head 03/18/2020, 02/14/2020. FINDINGS: PARENCHYMA: Corresponding with location of the large left parenchymal hemorrhage,there is now extensive left temporal encephalomalacia. No findings oflarge vascular territory infarct. No acute parenchymal hemorrhage. No mass or midline shift. EXTRA-AXIAL SPACES: No extra-axial collection or mass. VENTRICULAR SYSTEM: Progressive ex vacuo enlargement of the left lateral ventricle atrium andtemporal horn. Ventricle caliber is otherwise unchanged. No acuteintraventricular hemorrhage. VESSELS: Limited evaluation without IV contrast. Grossly normal density in thedural venous sinuses. BONES: Unchanged left hemicraniectomy. Degenerative temporomandibular joints. ORBITS: Unremarkable. PARANASAL SINUSES/MASTOID AIR CELLS: Predominantly clear. EXTRACRANIAL SOFT TISSUES: Unremarkable aside from postoperative findings. IMPRESSION 1. Interval evolution of extensive left temporal encephalomalacia relatedto prior hemorrhage. 2. No acute intracranial hemorrhage. I have personally reviewed the images and the above interpretation andagree with the findings. us Antonieta Pickett MD [facility] [place] ORDERABLES Final Resul t * TYPE AND SCREEN (07/12/2020 11:50 EDT) ABO AB 07/12/2020 13:07 EDT [facility] Rh Factor Positive 07/12/2020 13:07 EDT [facility] Antibody Screen Negative 07/12/2020 13:07 EDT [facility] Specimen Expires: 07/15/2020 @ 23:59 07/12/2020 13:07 EDT [facility] Blood VENOUS BLOOD / Unknown Venipuncture / Unknown 07/12/2020 11:50 EDT 07/12/2020 11:54 EDT us Celia Luis PA-C BLOOD BANK TESTS Ed ited Result - Final Performing Organization Address City/State/[facility] [[email or web address]] Co de Phone Number [facility] [address] [place] [address] documented in this encounter Visit Diagnoses Diagnosis Cerebral edema (HCC-CMS)- Primary Cerebral edema History of cranial surgery Other postprocedural status Nontraumatic hemorrhage of left cerebral hemisphere (HCC-CMS) Cerebral edema (HCC-CMS) Cerebral edema documented in this encounter Admitting Diagnoses Diagnosis Cerebral edema (HCC-CMS) Cerebral edema documented in this encounter Administered Medications Inactive Administered Medications - up to 3 most recent administrations Medication Order MAR Action Action Date Dose Rate Site acetaminophen (TYLENOL) solution unit dose cup 650 mg 650 mg, per ng tube, EVERY 6 HOURS, First dose (after last modification) on Sat07/13/20 at 0000, Until Discontinued, Routine acetaminophen (TYLENOL) suppository 650 mg 650 mg, rectal, EVERY 6 HOURS, First dose (after last modification) on Sat07/13/20 at 0000, Until Discontinued, Routine acetaminophen (TYLENOL) tablet 1,000 mg 1,000 mg, oral, EVERY 6 HOURS, First dose (after last modification) on Sat07/13/20 at 0000, Until Discontinued, Routine Given 07/14/2020 6:09 EDT 1,000 mg Given 07/14/2020 0:23 EDT 1,000 mg Given 07/13/2020 18:02 EDT 1,000 mg Bacitracin Zinc-Polymyxin B 500-10,000 unit/gram ointment ointment As needed, Starting on Sat07/12/20 at 1508, Until Sat07/12/20 at 1514, Intraprocedure Given 07/12/2020 15:08 EDT 28 m g Scalp bupivacaine-EPINEPHrine (PF) 0.5 %-1:200,000 injection As needed, Starting on Sat07/12/20 at 1344, Until Sat07/12/20 at 1346, Routine, Intraprocedure Given 07/12/2020 13:44 EDT 6 mL Scalp buPROPion (WELLBUTRIN XL) XL tablet 300 mg 300 mg, oral, DAILY, First dose on Sat07/13/20 at 0900, Until Discontinued Given 07/14/2020 8:42 EDT 300 mg Given 07/13/2020 9:17 EDT 300 mg docusate sodium (COLACE) capsule 100 mg 100 mg, oral, 2 TIMES DAILY, First dose on Sat07/12/20 at 2100, Until Discontinued, Routine Given 07/14/2020 8:42 EDT 10 0 mg Given 07/13/2020 22:18 EDT 100 mg Given 07/12/2020 21:31 EDT 100 mg enoxaparin (LOVENOX) injection 40 mg 40 mg, subcutaneous, DAILY, First dose on Sat07/14/20 at 0900, Until Discontinued, Routine Given 07/14/2020 8:42 EDT 40 mg gabapentin (NEURONTIN) capsule 100 mg 100 mg, oral, 3 TIMES DAILY, First dose on Sat07/12/20 at 2100, Until Discontinued, Routine Given 07/14/2020 8:42 EDT 10 0 mg Given 07/13/2020 20:37 EDT 100 mg Given 07/13/2020 9:17 EDT 100 mg Gelatin Adsorbable powder As needed, Starting on Sat07/12/20 at 1346, Until Sat07/12/20 at 1346, Intraprocedure Given 07/12/2020 13:46 EDT 1,000 mg Other hydrALAzine (APRESOLINE) injection 10 mg 10 mg, intravenous, EVERY 1 HOUR PRN, Starting on Sat07/13/20 at 2140, Until Sat07/14/20 at 1341, High Blood Pressure, Routine methocarbamoL (ROBAXIN) tablet 1,000 mg 1,000 mg, oral, 4 TIMES DAILY, First dose on Sat07/12/20 at 2100, Until Discontinued, Routine Given 07/14/2020 8:42 EDT 1,000 mg Given 07/13/2020 20:38 EDT 1,000 mg Given 07/13/2020 18:03 EDT 1,000 mg ondansetron (PF) (ZOFRAN) injection 4 mg 4 mg, intravenous, EVERY 4 HOURS PRN, Starting on Sat07/12/20 at 1545, Until Sat07/14/20 at 1341, Nausea, Routine Given 07/13/2020 13:26 EDT 4 mg Given 07/13/2020 5:59 EDT 4 mg Given 07/12/2020 18:47 EDT 4 mg oxyCODONE (ROXICODONE) immediate release tablet 5-15 mg 5-15 mg, oral, EVERY 4 HOURS PRN, Starting on Sat07/12/20 at 2041, Until Sat07/14/20 at 1341, Pain, Routine Given 07/13/2020 10:00 EDT 15 mg Given 07/13/2020 5:52 EDT 15 mg Given 07/13/2020 0:09 EDT 10 mg pantoprazole (PROTONIX) tablet 40 mg 40 mg, oral, DAILY, First dose on Sat07/13/20 at 0900, Until Discontinued, Routine Given 07/14/2020 8:42 EDT 40 mg Given 07/13/2020 9:18 EDT 40 mg polyethylene glycol 3350 (MIRALAX) packet 17 g 17 g, oral, DAILY PRN, Starting on Sat07/12/20 at 1545, Until Sat07/14/20 at 1341, Constipation Given 07/14/2020 9:48 EDT 17 g prochlorperazine edisylate (COMPAZINE) injection 10 mg 10 mg, intravenous, EVERY 6 HOURS PRN, Starting on Sat07/13/20 at 1451, Until Sat07/14/20 at 1341, Nausea, Routine Given 07/13/2020 14:59 EDT 10 mg QUEtiapine (SEROQUEL) tablet 50 mg 50 mg, oral, AT BEDTIME, First dose on Sat07/12/20 at 2100, Until Discontinued, Routine Given 07/13/2020 22:18 EDT 5 0 mg Given 07/12/2020 21:31 EDT 50 mg ramelteon (ROZEREM) tablet 8 mg 8 mg, oral, AT BEDTIME, First dose on Sat07/12/20 at 2100, Until Discontinued, Routine Given 07/13/2020 22:18 EDT 8 mg Given 07/12/2020 21:31 EDT 8 mg scopolamine (TRANSDERM-SCOP) 1 mg over 3 days patch 1 Patch 1 Patch, transdermal, Administer over 72 Hours, EVERY 72 HOURS PRN, Starting on Sat07/13/20 at 1451, Until Sat07/14/20 at 1341, Routine Patch Applied 07/13/2020 15:01 EDT 1 Patch Behind Right Ear senna (SENOKOT) tablet 1 Tab 1 Tablet, oral, 2 TIMES DAILY PRN, Starting on Sat07/12/20 at 1545, Until Sat07/14/20 at 1341, Constipation, Routine Given 07/14/2020 9:48 EDT 1 Tablet sodium chloride 0.9 % 1,000 mL with bacitracin 50,000 Units, ceFAZolin (ANCEF) 1,000 mg, gentamicin (GARAMYCIN) 100 mg As needed, Starting on Sat07/12/20 at 1343, Until Sat07/12/20 at 1346, Routine, Intraprocedure Given 07/12/2020 13:43 EDT 1,000 mL Other sodium chloride 0.9 % irrigation As needed, Starting on Sat07/12/20 at 1345, Until Sat07/12/20 at 1346, Routine, Intraprocedure Given 07/12/2020 13:45 EDT 1,000 mL Other Thrombin (Bovine) 5,000 unit topical solution As needed, Starting on Sat07/12/20 at 1345, Until Sat07/12/20 at 1346, Intraprocedure Given 07/12/2020 13:45 EDT 1 Vial Other documented in this encounter Historical Medications * This list may reflect changes made after this encounter. pantoprazole (PROTONIX) 20 mg tablet Take 40 mg by mouth daily. 08/05/2020 added in this encounter Active and Recently Administered Medications Times are shown in EDT. Scheduled Medication Order 07/12/2020 07/13/2020 07/14/2020 acetaminophen (TYLENOL) solution unit dose cup 650 mg(Linked Group 1) 650 mg, per ng tube, EVERY 6 HOURS, First dose (after last modification) on Sat07/13/20 at 0000, Until Discontinued, Routine 0009 (See Alternative - Provider: Kendra Cowart RN)0553 (See Alternative - Provider: Kendra Cowart RN)1325 (See Alternative - Provider: Ac Dickerson RN)1802 (See Alternative - Provider: Ac Dickerson RN) 0023 (See Alternative - Provider: Kendra Cowart RN)0609 (See Alternative - Provider: Kendra Cowart RN)1200 (Canceled Entry - Provider: Batch Job User Admin - Comment: Automatically canceled at discontinue of medication order) acetaminophen (TYLENOL) suppository 650 mg(Linked Group 1) 650 mg, rectal, EVERY 6 HOURS, First dose (after last modification) on Sat07/13/20 at 0000, Until Discontinued, Routine 0009 (See Alternative - Provider: Kendra Cowart RN)0553 (See Alternative - Provider: Kendra Cowart RN)1325 (See Alternative - Provider: Ac Dickerson RN)1802 (See Alternative - Provider: Ac Dickerson RN) 0023 (See Alternative - Provider: Kendra Cowart RN)0609 (See Alternative - Provider: Kendra Cowart RN)1200 (Canceled Entry - Provider: Batch Job User Admin - Comment: Automatically canceled at discontinue of medication order) acetaminophen (TYLENOL) tablet 1,000 mg(Linked Group 1) 1,000 mg, oral, EVERY 6 HOURS, First dose (after last modification) on Sat07/13/20 at 0000, Until Discontinued, Routine 0009 (Given - Provider: Kendra Cowart RN)0553 (Given - Provider: Kendra Cowart RN)1325 (Not Given - Provider: Ac Dickerson RN - Reason: Nausea/Vomiting)180 (Given - Provider: Ac Dickerson RN) 0023 (Given - Provider: Kendra Cowart RN)0609 (Given - Provider: Kendra Cowart RN)1200 (Canceled Entry - Provider: Batch Job User Admin - Comment: Automatically canceled at discontinue of medication order) buPROPion (WELLBUTRIN XL) XL tablet 300 mg 300 mg, oral, DAILY, First dose on Sat07/13/20 at 0900, Until Discontinued 0917 (Given - Provider: Ac Dickerson RN) 0842 (Given - Provider: Darwin Willoughby RN) ceFAZolin (ANCEF) syringe 2 g (COMPLETED) 2 g, intravenous, Administer over 10 Minutes, PRE-OP ONCE, 1 dose, On Sat07/12/20 at 1145, Routine, Preprocedure 1305 (Given - Provider: Haile Nails APRN) docusate sodium (COLACE) capsule 100 mg 100 mg, oral, 2 TIMES DAILY, First dose on Sat07/12/20 at 2100, Until Discontinued, Routine 213 (Given - Provider: Kendra Cowart RN) 0919 (Hold - Provider: Ac Dickerson RN - Reason: Nausea/Vomiting)221 (Given - Provider: Kendra Cowart RN) 0842 (Given - Provider: Darwin Willoughby RN) enoxaparin (LOVENOX) injection 40 mg 40 mg, subcutaneous, DAILY, First dose on Sat07/14/20 at 0900, Until Discontinued, Routine 0842 (Given - Provider: Darwin Willoughby RN) gabapentin (NEURONTIN) capsule 100 mg 100 mg, oral, 3 TIMES DAILY, First dose on Sat07/12/20 at 2100, Until Discontinued, Routine 2054 (Given - Provider: Kendra Cowart RN) 0917 (Given - Provider: Ac Dickerson RN)1455 (Hold - Provider: Ac Dickerson RN - Reason: Nausea/Vomiting)2036 (Given - Provider: Kendra Cowart RN) 0842 (Given - Provider: Darwin Willoughby RN) methocarbamoL (ROBAXIN) tablet 1,000 mg 1,000 mg, oral, 4 TIMES DAILY, First dose on Sat07/12/20 at 2100, Until Discontinued, Routine 2053 (Given - Provider: Kendra Cowart RN) 0918 (Given - Provider: Ac Dickerson RN)1326 (Hold - Provider: Ac Dickerson RN - Reason: Nausea/Vomiting)1803 (Given - Provider: Ac Dickerson RN)203 (Given - Provider: Kendra Cowart RN) 0842 (Given - Provider: Darwin Willoughby RN)1200 (Canceled Entry - Provider: Batch Job User Admin - Comment: Automatically canceled at discontinue of medication order) pantoprazole (PROTONIX) tablet 40 mg 40 mg, oral, DAILY, First dose on Sat07/13/20 at 0900, Until Discontinued, Routine 0918 (Given - Provider: Ac Dickerson RN) 0842 (Given - Provider: Darwin Willoughby RN) QUEtiapine (SEROQUEL) tablet 50 mg 50 mg, oral, AT BEDTIME, First dose on Sat07/12/20 at 2100, Until Discontinued, Routine 2131 (Given - Provider: Kendra Cowart RN) 221 (Given - Provider: Kendra Cowart RN) ramelteon (ROZEREM) tablet 8 mg 8 mg, oral, AT BEDTIME, First dose on Sat07/12/20 at 2100, Until Discontinued, Routine 213 (Given - Provider: Kendra Cowart RN) 221 (Given - Provider: Kendra Cowart RN) Continuous Medication Order 07/12/2020 07/13/2020 07/14/2020 electrolyte-A (PLASMALYTE-A) solution (CANCELED) at 100 mL/hr, intravenous, CONTINUOUS, Starting on Sat07/12/20 at 1615, Until Sat07/13/20 at 0156, Routine 1557 (New Bag - Provider: Ac Dickerson RN)1700 (Rate Documented - Provider: Ac Dickerson RN)1800 (Rate Documented - Provider: Ac Dickerson RN)1900 (Rate Documented - Provider: Kendra Cowart RN)2000 (Rate Documented - Provider: Kendra Cowart RN)2100 (Rate Documented - Provider: Kendra Cowart RN)2200 (Rate Documented - Provider: Kendra Cowart RN)2300 (Rate Documented - Provider: Kendra Cowart RN) 0000 (Rate Documented - Provider: Kendra Cowart RN)0100 (Rate Documented - Provider: Kendra Cowart RN) lactated ringers (LR) infusion (CANCELED) 30 mL/hr, intravenous, CONTINUOUS, Starting on Sat07/12/20 at 1145, Until Sat07/13/20 at 1346, Routine, Preprocedure 1154 (New Bag - Provider: Hina Preston RN)1248 (Continued by Anesthesia - Provider: Haile Nails APRN)1539 (Anesthesia Volume Adjustment - Provider: Haile Nails APRN)1700 (Rate Documented - Provider: Ac Dickerson RN)1800 (Rate Documented - Provider: Ac Dickerson RN)1900 (Rate Documented - Provider: Kendra Cowart RN)1959 (Completed - Provider: Kendra Cowart RN) PRN Medication Order 07/12/2020 07/13/2020 07/14/2020 acetaminophen (TYLENOL) tablet 650 mg (CANCELED) 650 mg, oral, EVERY 4 HOURS PRN, Starting on Sat07/12/20 at 1545, Until Sat07/12/20 at 2042, Pain, Routine 1828 (Given - Provider: Ac Dickerson RN) Bacitracin Zinc-Polymyxin B 500-10,000 unit/gram ointment ointment (CANCELED) As needed, Starting on Sat07/12/20 at 1508, Until Sat07/12/20 at 1514, Intraprocedure 1508 (Given - Provider: Claus Piña MD) bupivacaine-EPINEPHrine (PF) 0.5 %-1:200,000 injection (CANCELED) As needed, Starting on Sat07/12/20 at 1344, Until Sat07/12/20 at 1346, Routine, Intraprocedure 1344 (Given - Provider: Claus Piña MD) calcium carbonate (TUMS) 200 mg calcium (500 mg) per chewable tablet tablet,chewable 1 Tab 1 Tablet, oral, EVERY 4 HOURS PRN, Starting on Sat07/12/20 at 1545, Until Tiffanie 07/14/20 at 1341, Heartburn, Routine fentaNYL citrate (PF) injection 25-50 mcg (CANCELED) 25-50 mcg, intravenous, EVERY 1 HOUR PRN, Starting on Sat07/12/20 at 1545, Until Sat07/13/20 at 2129, Pain, For breakthrough pain not controlled with oral medications., Routine 1559 (Given - Provider: Ac Dickerson RN)1647 (Given - Provider: Ac Dickerson RN)1743 (Given - Provider: Ac Dickerson RN)1847 (Given - Provider: Ac Dickerson RN)2003 (Given - Provider: Kendra Cowart RN)2111 (Given - Provider: Kendra Cowart RN - Comment: dose given from prior adiministration vial) 0408 (Given - Provider: La Cowart, RN)0738 (Given - Provider: Mita Justice RN)1326 (Given - Provider: Ac Dickerson RN)1430 (Given - Provider: Marifer Campbell RN)1728 (Given - Provider: Ac Dickerson RN) Gelatin Adsorbable powder (CANCELED) As needed, Starting on Sat07/12/20 at 1346, Until Sat07/12/20 at 1346, Intraprocedure 1346 (Given - Provider: Claus Piña MD - Comment: Surgical incision) hydrALAzine (APRESOLINE) injection 10 mg 10 mg, intravenous, EVERY 1 HOUR PRN, Starting on Sat07/13/20 at 2140, Until Tiffanie 07/14/20 at 1341, High Blood Pressure, Routine ondansetron (PF) (ZOFRAN) injection 4 mg 4 mg, intravenous, EVERY 4 HOURS PRN, Starting on Sat07/12/20 at 1545, Until Tiffanie 07/14/20 at 1341, Nausea, Routine 1847 (Given - Provider: Ac Dickerson RN) 0559 (Given - Provider: Kendra Cowart RN)1326 (Given - Provider: Ac Dickerson RN) oxyCODONE (ROXICODONE) immediate release tablet 5-10 mg (CANCELED) 5-10 mg, oral, EVERY 4 HOURS PRN, Starting on Sat07/12/20 at 1545, Until Sat07/12/20 at 2042, Pain, discomfort, Routine 1828 (Given - Provider: Ac Dickerson RN) oxyCODONE (ROXICODONE) immediate release tablet 5-15 mg 5-15 mg, oral, EVERY 4 HOURS PRN, Starting on Sat07/12/20 at 2041, Until Tiffanie 07/14/20 at 1341, Pain, Routine 0009 (Given - Provider: Kendra Cowart RN)0552 (Given - Provider: Kendra Cowart RN)1000 (Given - Provider: Ac Dickerson RN) polyethylene glycol 3350 (MIRALAX) packet 17 g 17 g, oral, DAILY PRN, Starting on Sat07/12/20 at 1545, Until Sat07/14/20 at 1341, Constipation 0948 (Given - Provider: Darwin Willoughby RN) prochlorperazine edisylate (COMPAZINE) injection 10 mg 10 mg, intravenous, EVERY 6 HOURS PRN, Starting on Sat07/13/20 at 1451, Until Sat07/14/20 at 1341, Nausea, Routine 1459 (Given - Provider: Ac Dickerson RN) scopolamine (TRANSDERM-SCOP) 1 mg over 3 days patch 1 Patch 1 Patch, transdermal, Administer over 72 Hours, EVERY 72 HOURS PRN, Starting on Sat07/13/20 at 1451, Until Sat07/14/20 at 1341, Routine 1501 (Patch Applied - Provider: Ac Dickerson RN) senna (SENOKOT) tablet 1 Tab 1 Tablet, oral, 2 TIMES DAILY PRN, Starting on Sat07/12/20 at 1545, Until Sat07/14/20 at 1341, Constipation, Routine 0948 (Given - Provider: Darwin Willoughby RN) sodium chloride 0.9 % 1,000 mL with bacitracin 50,000 Units, ceFAZolin (ANCEF) 1,000 mg, gentamicin (GARAMYCIN) 100 mg (CANCELED) As needed, Starting on Sat07/12/20 at 1343, Until Sat07/12/20 at 1346, Routine, Intraprocedure 1343 (Given - Provider: Claus Piña MD - Comment: For soaking bone flap) sodium chloride 0.9 % irrigation (CANCELED) As needed, Starting on Sat07/12/20 at 1345, Until Sat07/12/20 at 1346, Routine, Intraprocedure 1345 (Given - Provider: Claus Piña MD - Comment: Surgical incision) Thrombin (Bovine) 5,000 unit topical solution (CANCELED) As needed, Starting on Sat07/12/20 at 1345, Until Sat07/12/20 at 1346, Intraprocedure 1345 (Given - Provider: Claus Piña MD - Comment: Mixed with gelfoam and on neuro patties) Linked Groups Order Group 1: acetaminophen (TYLENOL) tablet 1,000 mgJump to med 1,000 mg, oral, EVERY 6 HOURS, First dose (after last modification) on Sat07/13/20 at 0000, Until Discontinued, Routine Or acetaminophen (TYLENOL) solution unit dose cup 650 mgJump to med 650 mg, per ng tube, EVERY 6 HOURS, First dose (after last modification) on Sat07/13/20 at 0000, Until Discontinued, Routine Or acetaminophen (TYLENOL) suppository 650 mgJump to med 650 mg, rectal, EVERY 6 HOURS, First dose (after last modification) on Sat07/13/20 at 0000, Until Discontinued, Routine documented in this encounter Orders Medications Ordered That Babak ht Not Have Been Administered Count Last Ordered Date First Ordered Date enoxaparin (LOVENOX) injection 40 mg 1 06/26 hydrALAzine (APRESOLINE) 10 mg in sodium chloride (NS) 0.9 % 50 mL IVPB 1 07/13/2020 hydrALAzine (APRESOLINE) injection 10 mg 2 07/13/2020 07/12/2020 prochlorperazine edisylate ( COMPAZINE) injection 10 mg 1 07/13/2020 scopolamine (TRANSDERM-SCOP) 1 mg over 3 days patch 1 Patch 1 07/13/2020 acetaminophen (TYLENOL) solu tion unit dose cup 650 mg 2 07/12/2020 acetaminophen (TYLENOL) suppository 650 mg 2 07/12/2020 acetaminophen (TYLENOL) tablet 1,000 mg 1 0 07/12/2020 acetaminophen (TYLENOL) tablet 650 mg 1 buPROPion (WELLBUTRIN XL) XL tablet 300 mg 1 07/12/2020 calcium carbonate (TUMS) 200 mg calcium (500 mg) per chewable tablet tablet,chewable 1 Tab 1 07/12/2020 ceFAZolin (ANCEF) syringe 2 g 1 07/12/2020 docusate sodium (COLACE) capsule 100 mg 1 0 07/12/2020 electrolyte-A (PLASMALYTE-A) solution 1 fentaNYL citrate (PF) 50 mcg/mL injection 1 07/12/2020 fentaNYL citrate (PF) injection 25-50 mcg 1 07/12/2020 gabapentin (NEURONTIN) capsule 100 mg 1 labetaloL (TRANDATE) injection 10 mg 1 06/25 lactated ringers (LR) infusion 1 07/12/2020 lidocaine (PF) 10 mg/mL (1 % ) injection 2 mg 1 07/12/2020 melatonin tablet 5 mg 1 07/12/2020 methocarbamoL (ROBAXIN) tablet 1,000 mg 1 0 07/12/2020 ondansetron (PF) (ZOFRAN) injection 4 mg 1 07/12/2020 oxyCODONE (ROXICODONE) immed iate release tablet 5-10 mg 1 07/12/2020 oxyCODONE (ROXICODONE) immed iate release tablet 5-15 mg 1 07/12/2020 pantoprazole (PROTONIX) tablet 40 mg 1 06/25 polyethylene glycol 3350 (UT RALAX) packet 17 g 1 07/12/2020 QUEtiapine (SEROQUEL) tablet 50 mg 1 2019 ramelteon (ROZEREM) tablet 8 mg 1 0 senna (SENOKOT) tablet 1 Tab 1 07/12/2020 Nursing Count Last Ordered Date First Orde red Date ACTIVITY INSTRUCTIONS 1 07/14/2020 DRIVING INSTRUCTIONS 1 07/14/2020 WOUND CARE INSTRUCTIONS 1 07/14/2020 CONTRAINDICATION TO ANTICOAG ULATION THERAPY 1 07/12/2020 Respiratory Care Count Last Ordered Date First Ordered Date RESPIRATORY CARE EVALUATION ONLY 1 07/12/20 20 IV Count Last Ordered Date First Orde red Date IV REQUEST 2 07/13/2020 07/12/2020 Admission Count Last Ordered Date First Orde red Date ADMIT TO INPATIENT 1 07/12/2020 Transfer Count Last Ordered Date First Orde red Date TRANSFER PATIENT 1 07/13/2020 TEACHING SERVICE 2 07/12/2020 Discharge Count Last Ordered Date First Orde red Date DISCHARGE PATIENT 1 07/14/2020 Legal Count Last Ordered Date First Orde red Date MISCELLANEOUS DISCHARGE INSTRUCTIONS 2 06/26 documented in this encounter Care Teams Warehouse Associate Driver Relationship Specialty Start Date End Date Romario Hairston MD [id number] [place] [id number] PCP - General 07/06/20 documented as of this encounter
--- OUTSIDE RECORDS SUMMARY | 2024-12-03 16:00 | XMS_ITS | Encounter Summary ---
Author Organization [facility] Address [address] [place] [address] Care Team Providers Care Release And Technical Records Clerk Name Role Phone Romario Hairston MD Primary Care Provider +1- [phone] Encounter Details Date Type Department Care Team (Late st Contact Info) Description 07/16/2020 Results Only [facility] [phone] Jean Mccarthy MD [address] [place] [phone] Social History Tobacco Use Types Packs/Day [...] 17:07 EDT documented as of this encounter Functional [...] Contact Info) Description 03/04/2025 14:00 EDT Telemedicine [facility] [place] [facility] [place] [address] [place] [address] Brayan Polk MD [address] [facility] [address] [place] [phone] 07/14/2025 14:30 EDT Office Visit [facility] Cancer Center Hematology & Oncology - [address] [phone] Evin Maria MD [address] [place] [address], [address] [place] [address] documented as of this encounter Procedures Procedure Name Priority Date/Time Associated Diagnosis Comments BLOOD CULT[place] [facility] Routine 07/16/2020 11:58 EDT BLOOD CULTURE - [facility] Routine 07/16/2020 11:53 EDT LACTIC ACID SEPSIS REFLEX - CV Routine 07/16/2020 11:53 EDT COMPLETE BLOOD COUNT WITH DIFFERENTIAL (AUTO) Routine 07/16/2020 10:00 EDT C REACTIVE PROTEIN Routine 07/16/2020 10 :00 EDT COMPREHENSIVE METABOLIC PANEL (CMP) Routine 07/16/2020 10:00 EDT documented in this encounter Results * BLOOD CULTURE [place] [facility] (07/16/2020 11:58 EDT) [facility] BLOOD CULTURE - [facility] 07/21/2020 12:34 EDT [facility] BLOOD CULTURE - [facility] NO GROWTH AT 5 DAYS 07/21/2020 12:34 EDT [facility] Blood specimen (specimen) 07/16/2020 11:58 EDT 07/16/2020 12:03 EDT Comment:PERIP us Jean Mccarthy MD CHEMISTRY & BLOOD GAS ORDER [place] Edited Result - Final Performing Organization Address City/[facility]/ZIP Co de Phone Number [facility] [address] [place] [address] * BLOOD CULTURE - CV (07/16/2020 11:53 EDT) [facility] BLOOD CULTURE - [facility] 07/21/2020 12:34 EDT [facility] BLOOD CULTURE - [facility] NO GROWTH AT 5 DAYS 07/21/2020 12:34 EDT [facility] Blood specimen (specimen) 07/16/2020 11:53 EDT 07/16/2020 12:03 EDT Comment:PERIP us Jean Mccarthy MD CHEMISTRY & BLOOD GAS ORDER [place] Edited Result - Final [facility] [address] [place] [address] * LACTIC ACID SEPSIS REFLEX - CV (07/16/2020 11:53 EDT) [facility] LACTIC ACID - [facility] 0.8 <2.0 mmol/L 07/16/2020 12:20 EDT [facility] 07/16/2020 11:5 3 EDT 07/16/2020 12:02 EDT Jean Mccarthy MD CHEMISTRY & BLOOD GAS ORDER [place] Final Result Performing Organization Address [facility] Co de Phone Number [facility] [address] [place] [address] * (ABNORMAL) C REACTIVE PROTEIN (07/16/2020 10:00 EDT) [facility] C-Reactive Protein 69.5(H) <10.0 mg/L [facility]/16[facility]2020 [facility] 07[facility]16/[facility] 10:0 0 EDT 07/16/2020 10:33 EDT Jean Mccarthy MD CHEMISTRY & BLOOD GAS ORDER [place] Final Result Performing Organization Address [facility] de Phone Number [facility] [address] [place] [address] * (ABNORMAL) COMPREHENSIVE METABOLIC PANEL (CMP) (07/16/2020 10:00 EDT) [facility] Albumin % 4.2 3.4 - 4.9 g/dL 07/16/2020 10[facility] ALKALINE PHOSPHATASE - [facility] 187(H) 38 - 126 U/L 07/16/2020 10:52 [facility] BILIRUBIN TOTAL 0.5 0.2 - 1.3 mg/dL 07/16/2020 10:52 [facility] BUN - [facility] 12 10 - 26 mg/dL 07/16/2020 10:52 [facility] CALCIUM - [facility] 10.0 8.5 - 10.5 mg/dL 07/16/2020 10:52 [facility] Chloride 99 96 - 110 mmol/L 07/16/2020 10:52 [facility] CO2 Total 17(L) 22 - 32 mEq/L 07/16/2020 10:52 EDT [facility] CREATININE 0.94 0.52 - 1.04 mg/dL 07/16/2020 10:52 [facility] eGFR >60 07/16/2020 10:52 [facility] Comment: Chronic renal impairment is defined as GFR <60 Multiply result by 1.210 for patients. eGFR calculated using the IDMS-traceable MDRD Study Equation. ??(effective 09/27/2014) Anion Gap 24(H) 0 - 18 07/16/2020 11:08 EDT [facility] GLUCOSE - [facility] 118(H) 70 - 100 mg/dL 07/16/2020 10:52 [facility] Potassium 4.1 3.5 - 5.0 mEq/L 07/16/2020 10:52 [facility] Sodium 140 136 - 145 mEq/L 07/16/2020 10:52 [facility] TOTAL PROTEIN - [facility] 7.0 6.2 - 8.2 gm/dL 07/16/2020 10:52 [facility] SGOT/AST - [facility] 23 14 - 36 U/L 07/16/2020 10:52 [facility] SGPT/ALT - [facility] 17 0 - 35 U/L 0 11:08 [facility] 07/16/2020 10:0 0 EDT 07/16/2020 10:33 EDT us Jean Mccarthy MD CHEMISTRY & BLOOD GAS ORDER [place] Final Result [facility] [address] [place] [address] * (ABNORMAL) COMPLETE BLOOD COUNT WITH DIFFERENTIAL (AUTO) (07/16/2020 10:00 EDT) Gran # 4.6 2.2 - 8.85 10e3/uL 07/16/2020 10:38 EDT [facility] BASO # - [facility] 0.05 0.01 - 0.11 10e/uL 07/16/2020 10:38 EDT [facility] BASO % - [facility] 1 0 - 2 % 07/16/2020 10:38 [facility] EOS # - [facility] 0.25 0.03 - 0.61 10e3/ul 07/16/2020 10:38 [facility] EOS % - [facility] 3 0 - 5 % 07/16/2020 10:38 [facility] GRAN % - [facility] 49.0 40 - 80 % 07/16/2020 10:38 [facility] HEMATOCRIT - [facility] 38.8 34.9 - 44.4 % 07/16/2020 10:38 [facility] HEMOGLOBIN - [facility] 12.3 11.6 - 15.2 g/dl 07/16/2020 10:38 [facility] IG# - [facility] 0.05 0 - 0.7 10e3/uL 07/16/2020 10:38 [facility] IG% - [facility] 0.5 0 - 0.9 % 07/16/2020 10:38 [facility] LYMPH # - [facility] 3.9(H) 1.09 - 3.3 10e3/ul 07/16/2020 10:38 [facility] LYMPH% - [facility] 41.1(H) 20 - 40 % 07/16/2020 10:38 [facility] MEAN CORPUSCULAR HGB - [facility] 29.2 26.7 - 33.3 pg 07/16/2020 10:38 [facility] MEAN CORPUSCULAR HGB CONC - [facility] 31.7(L) 32.1 - 35.9 g/dL 07/16/2020 10:38 [facility] MEAN CELL VOLUME - [facility] 92.2 81 - 98 fl 07/16/2020 10:38 [facility] MONO # - [facility] 0.6 0.1 - 0.8 10e3/uL 07/16/2020 10:38 [facility] MONO% - [facility] 6.2 0 - 12 % 07/16/2020 10:38 [facility] PLATELET COUNT 293 141 - 377 10e3/ul 07/16/2020 10:38 EDT [facility] RED BLOOD COUNT - [facility] 4.21 3.86 - 5.04 10e3/ul 07/16/2020 10:38 EDT [facility] RED CELL DISTRI WIDTH - [facility] 13.2 <14.7 % 07/16/2020 10:38 EDT [facility] WHITE BLOOD COUNT - [facility] 9.4 4.0 - 12.4 10e3/ul 07/16/2020 10:38 EDT [facility] 07/16/2020 10:0 0 EDT 07/16/2020 10:33 EDT us Jean Mccarthy MD HEMATOLOGY & PF4 ORDERABLES Final Result [facility] [address] [place] [address] documented in this encounter Visit Diagnoses Not on filedocumented in this encounter Care Teams Release And Technical Records Clerk Relationship Specialty Start Date End Date Romario Hairston MD [facility], [address] [place] [address] PCP - General 07/06/20 documented as of this encounter
--- OUTSIDE RECORDS SUMMARY | 2024-12-03 16:00 | XMS_ITS | Encounter Summary ---
Author Organization [facility] Address [address] [place] [address] Care Team Providers Care C D Still Operator Name Role Phone Romario Hairston MD Primary Care Provider +1- [phone] Encounter Details Date Type Department Care Team (Late st Contact Info) Description 07/11/2020 Prep for Procedure [facility] Neurosurgery - [address] [address] Celia Luis PA-C [address] [place] [address], [address] [place] [phone] Social History Tobacco Use Types Packs/Day Years [...] Date of Assessment Author No 03/02/2020 16:00 EDJulissa Garcia RN * Do you have serious difficulty walking or climbing stairs? (5 years old or older) Answer Date of Assessment Author No 03/02/2020 16:00 Julissa Phillip RN * Because of a physical, mental, or emotional condition, does this person have difficulty doing errands alone such as visiting a doctor's office or shopping? Answer Date of Assessment Author Yes 04/27/2020 11:05 Julissa Phillip RN documented as of this encounter Mental Status * Because of a physical, mental, or emotional condition, does this person have serious difficulty concentrating, remembering, or making decisions? Answer Entry Date Author Yes 04/27/2020 11:05 Julissa Phillip RN documented in this encounter Plan of Treatment Upcoming Encounters Date Type Department Care Team (Late st Contact Info) Description 03/04/2025 14:00 EDT Telemedicine [facility] Neurology Clinic [address] [place] [phone] Brayan Polk MD [address] [place] [address] [place] [address] 07/14/2025 14:30 EDT Office Visit [facility] Cancer Center Hematology & Oncology - [address] [phone] Evin Maria MD [address] [place] [address], [address] [place] [phone] documented as of this encounter Visit Diagnoses Not on filedocumented in this encounter Care Teams C D Still Operator Relationship Specialty Start Date End Date Romario Hairston MD [facility], [address] [phone] PCP - General 07/06/20 documented as of this encounter
--- OUTSIDE RECORDS SUMMARY | 2024-12-03 16:00 | XMS_ITS | Encounter Summary ---
Author Organization [facility] Address [address] [place] [address] Care Team Providers Care Military Logistics Specialist Name Role Phone Romario Hairston MD Primary Care Provider +1- [phone] Reason for Visit * Reason Onset Date Comments Appointment Related 07/06/2020 Encounter Details Date Type Department Care Team (Late st Contact Info) Description 07/06/2020 Telephone [facility] - [facility] - Mobile Testing Department [address] [place] [address] Alejandrina Carrillo PA-C [address] [place] [phone] Appointment Related Social History Tobacco Use Types [...] have Coronavirus / COVID-19? No / Unsure 07/06/2020 11:07 EDT documented as of this encounter Functional [...] 03/02/2020 16:00 EDT Julissa Nunez RN * Because of a physical, mental, or emotional condition, does this person have difficulty doing errands alone such as visiting a doctor's office or shopping? Answer Date of Assessment Author Yes 04/27/2020 11:05 EDT Julissa Nunez RN documented as of this encounter Mental Status * Because of a physical, mental, or emotional condition, does this person have serious difficulty concentrating, remembering, or making decisions? Answer Entry Date Author Yes 04/27/2020 11:05 EDT Julissa Nunez RN documented in this encounter Miscellaneous Notes * Telephone Encounter - Da Whitaker - 07/06/2020 8243 EDT PRE-OP SCREENING ...C-19 screening recommended by provider. Routed for testing ordering. Pre Surgery Clearance - 07/12/20 Vehicle: [employer] Color: white Cell #: [phone] Patient will be the passenger - surveillance supervisor is driving. Spoke to patient and verbally gave instructions for Testing Facility. Patient is instructed to be there at 10:00am xin, 07/08/20 documented in this encounter Plan of Treatment Upcoming Encounters Date Type Department Care Team (Late st Contact Info) Description 03/04/2025 14:00 EDT Telemedicine [facility] Neurology Clinic [address] [place], [place] [phone] Brayan Polk MD 130 [facility] [address] [place] [address] 07/14/2025 14:30 EDT Office Visit [facility] Cancer Center Hematology & Oncology - Main [address] [phone] Evin Maria MD 111 [facility], [address] [place] [address] documented as of this encounter Visit Diagnoses Not on filedocumented in this encounter Care Teams Military Logistics Specialist Relationship Specialty Start Date End Date Romario Hairston MD [address], [address] [address] PCP - General 07/06/20 documented as of this encounter
--- OUTSIDE RECORDS SUMMARY | 2024-12-03 16:00 | XMS_ITS | Encounter Summary ---
Author Organization [facility] Address [address] [place] [address] Care Team Providers Care Spinning Frame Fixer Name Role Phone Romario Hairston MD Primary Care Provider +1- [phone] Encounter Details Date Type Department Care Team (Late st Contact Info) Description 07/06/2020 Prep for Procedure [facility] Neurosurgery - [address] [address] Claus Piña MD [address] [place] [address], [address] [place] [address] Social History Tobacco Use Types Packs/Day Years [...] Description 03/04/2025 14:00 EDT Telemedicine [facility] Neurology Clinic [address] [place] [phone] Brayan Polk MD [address] [place] [address]A [address] [place] [address] 07/14/2025 14:30 EDT Office Visit [facility] Cancer Center Hematology & Oncology - [address] [phone] Evin Maria MD [address] [place] [address], [address] [place] [address] documented as of this encounter Visit Diagnoses Not on filedocumented in this encounter Orders Case Request Count Last Ordered Date First Orde red Date CASE REQUEST OPERATING ROOM 1 07/06/2020 documented in this encounter Care Teams Spinning Frame Fixer Relationship Specialty Start Date End Date Romario Hairston MD [facility] [facility], [address] [id number] PCP - General 07/06/20 documented as of this encounter
--- OUTSIDE RECORDS SUMMARY | 2024-12-03 16:00 | XMS_ITS | Encounter Summary ---
Author Organization [facility] Address [address] [place] [address] Care Team Providers Care Prior Authorization Nurse Name Role Phone Romario Hairston MD Primary Care Provider +1- [phone] Reason for Visit * Reason Onset Date Comments Medication Management 07/08/2020 Stop and r estart on Lovenox shots. Patient has surgery on 07/12 Encounter Details Date Type Department Care Team (Late st Contact Info) Description 07/08/2020 Telephone [facility] Cancer Center Hematology & Oncology - [address] [phone] Grayson Brar PA-C [address] [place] [address], [facility], [address] [place] [address] Medication Management (Stop and restart on Lovenox shots. Patient has surgery on 07/12) Social History Tobacco Use Types Packs/Day Years [...] Telephone Encounter - Adali Garza RN - 07/08/2020 1644 EDT Called spoke with EC - pt to hold Lovenox 07/11 and 07/12 and then she will have lovenox restarted post op based on heme recommendations * Telephone Encounter - Simi Mcdaniel - 07/08/2020 1052 EDT Patient's partner Ever calling to find out when she should stop her Lovenox shots. She has a procedure 07/12. Please Call documented in this encounter Plan of Treatment Upcoming Encounters Date Type Department Care Team (Late st Contact Info) Description 03/04/2025 14:00 EDT Telemedicine [facility] Neurology Clinic [address] [place] [address] Brayan Polk MD [address] [facility] [address] [place] [address] 07/14/2025 14:30 EDT Office Visit [facility] Cancer Center Hematology & Oncology - [address] [phone] Evin Maria MD 111 [facility], [facility], [address] [place] [address] documented as of this encounter Visit Diagnoses Not on filedocumented in this encounter Care Teams Prior Authorization Nurse Relationship Specialty Start Date End Date Romario Hairston MD [address], [address] [phone] PCP - General 07/06/20 documented as of this encounter
--- OUTSIDE RECORDS SUMMARY | 2024-12-03 16:00 | XMS_ITS | Encounter Summary ---
Author Organization [facility] Address [address] [place] [address] Care Team Providers Care Cell Phone Repair Technician Name Role Phone Romario Hairston MD Primary Care Provider +1- [phone] Encounter Details Date Type Department Care Team (Late st Contact Info) Description 07/11/2020 Prep for Procedure [facility] Neurosurgery - [address] [address] Claus Piña MD [address] [place] [address], [address] [place] [address] Social History Tobacco Use Types [...] Telemedicine [facility] Neurology Clinic [address] [place] [phone] Brayan Polk MD [address] [place] [address] [place] [address] 07/14/2025 14:30 EDT Office Visit [facility] Cancer Center Hematology & Oncology - [address] [phone] Evin Maria MD [address] [place] [address], [address] [place] [address] documented as of this encounter Visit Diagnoses Not on filedocumented in this encounter Care Teams Cell Phone Repair Technician Relationship Specialty Start Date End Date Romario Hairston MD [address], [address] [address] PCP - General 07/06/20 documented as of this encounter
--- OUTSIDE RECORDS SUMMARY | 2024-12-03 16:00 | XMS_ITS | Encounter Summary ---
Author Organization [facility] Address [address] [place] [address] Care Team Providers Care Commission Specialist Name Role Phone Romario Hairston MD Primary Care Provider +1- [phone] Encounter Details Date Type Department Care Team (Late st Contact Info) Description 07/08/2020 Results Only [facility] - [facility] Lab - Main [address] [address] Unknown, Provider, Social History Tobacco Use Types [...] Julissa Nunez RN documented in this encounter Plan of Treatment Upcoming Encounters Date Type Department Care Team (Late st Contact Info) Description 03/04/2025 14:[address] [facility] Neurology Clinic [address] [place] [address] Brayan Polk MD [address] [facility] [address] [place] [address] 07/14/2025 14:30 EDT Office Visit [facility] Hematology & Oncology - [address] [address] Evin Maria MD [address] [place] [address], [address] [place] [address] documented as of this encounter Procedures Procedure Name Priority Date/Time Associated Diagnosis Comments THROMBOSIS PATHOLOGY CONSULT - [facility] Routine 07/08/2020 12:50 EDT COMPLETE BLOOD COUNT WITH DIFFERENTIAL (AUTO) Routine 07/08/2020 12:50 EDT BASIC METABOLIC PANEL (BMP) Routine 07/08/2020 12:50 EDT documented in this encounter Results * THROMBOSIS PATHOLOGY CONSULT - [facility] (07/08/2020 12:50 EDT) THROMBOSIS PATHOLOGY CONSULT - [facility] ORDERED 07/11/2020 8:36 [facility] Comment:SEE [id number] 07/08/2020 12:5 0 EDT 07/08/2020 12:50 EDT Narrative [facility] - 07/11/2020 8:36 EDT Does PT Have a Latex Allergy? UNKNOWN us Provider Unknown MD CHEMISTRY & BLOOD GAS ORDERA BLES Final Result [facility] [address] [place] [address] * BASIC METABOLIC PANEL (BMP) (07/08/2020 12:50 EDT) BUN - [facility] 18 10 - 26 mg/dL 07/08/2020 13:44 [facility] CALCIUM - [facility] 10.3 8.5 - 10.5 mg/dL 07/08/2020 13:44 [facility] Chloride 105 96 - 110 mmol/L 07/08/2020 13:44 [facility] CO2 Total 23 22 - 32 mEq/L 07/08/2020 13:44 [facility] CREATININE 0.95 0.52 - 1.04 mg/dL 07/08/2020 13:44 [facility] eGFR >60 07/08/2020 13:44 [facility] Comment: Chronic renal impairment is defined as GFR <60 Multiply result by 1.210 for patients. eGFR calculated using the IDMS-traceable MDRD Study Equation. ??(effective 09/27/2014) Anion Gap 10 0 - 18 07/08/2020 13:44 [facility] GLUCOSE - [facility] 99 70 - 100 mg/dL 07/08/2020 13:44 [facility] Potassium 4.8 3.5 - 5.0 mEq/L 07/08/2020 13:44 [facility] Sodium 138 136 - 145 mEq/L 07/08/2020 13:44 [facility] 07/08/2020 12:5 0 EDT 07/08/2020 12:50 EDT Narrative [facility] - 07/08/2020 13:44 EDT Does PT Have a Latex Allergy? UNKNOWN us Provider Unknown MD CHEMISTRY & BLOOD GAS ORDERA BLES Final Result [facility] [address] [place] [address] * COMPLETE BLOOD COUNT WITH DIFFERENTIAL (AUTO) (07/08/2020 12:50 EDT) Gran # 3.7 2.2 - 8.85 10e3/uL 07/08/2020 13:11 [facility] BASO # - [facility] 0.03 0.01 - 0.11 10e/uL 07/08/2020 13:11 [facility] BASO % - [facility] 0 0 - 2 % 07/08/2020 13:11 [facility] EOS # - [facility] 0.19 0.03 - 0.61 10e3/ul 07/08/2020 13:11 [facility] EOS % - [facility] 3 0 - 5 % 07/08/2020 13:11 [facility] GRAN % - [facility] 54.2 40 - 80 % 07/08/2020 13:11 [facility] HEMATOCRIT - [facility] 42.0 34.9 - 44.4 % 07/08/2020 13:11 [facility] HEMOGLOBIN - [facility] 13.9 11.6 - 15.2 g/dl 07/08/2020 13:11 [facility] IG# - [facility] 0.02 0 - 0.7 10e3/uL 07/08/2020 13:11 [facility] IG% - [facility] 0.3 0 - 0.9 % 07/08/2020 13:11 [facility] LYMPH # - [facility] 2.7 1.09 - 3.3 10e3/ul 07/08/2020 13:11 [facility] LYMPH% - [facility] 38.7 20 - 40 % 07/08/2020 13:11 [facility] MEAN CORPUSCULAR HGB - [facility] 29.4 26.7 - 33.3 pg 07/08/2020 13:11 [facility] MEAN CORPUSCULAR HGB CONC - [facility] 33.1 32.1 - 35.9 g/dL 07/08/2020 13:11 [facility] MEAN CELL VOLUME - [facility] 89.0 81 - 98 fl 07/08/2020 13:11 [facility] MONO # - [facility] 0.3 0.1 - 0.8 10e3/uL 07/08/2020 13:11 [facility] MONO% - [facility] 3.6 0 - 12 % 07/08/2020 13:11 [facility] PLATELET COUNT 221 141 - 377 10e3/ul 07/08/2020 13:11 [facility] RED BLOOD COUNT - [facility] 4.72 3.86 - 5.04 10e3/ul 07/08/2020 13:11 [facility] RED CELL DISTRI WIDTH - [facility] 13.2 <14.7 % 07/08/2020 13:11 [facility] WHITE BLOOD COUNT - [facility] 6.9 4.0 - 12.4 10e3/ul 07/08/2020 13:11 [facility] 07/08/2020 12:5 0 EDT 07/08/2020 12:50 EDT Narrative [facility] - 07/08/2020 13:11 EDT Does PT Have a Latex Allergy? UNKNOWN us Provider Unknown HEMATOLOGY & PF4 ORDERABLES Final Result Performing Organization Address City/State/[facility] Co de Phone Number [facility] [address] [place] [address] documented in this encounter Visit Diagnoses Not on filedocumented in this encounter Care Teams Commission Specialist Relationship Specialty Start Date End Date Romario Hairston MD [address] [place] [address] PCP - General 07/06/20 documented as of this encounter
--- OUTSIDE RECORDS SUMMARY | 2024-12-03 16:00 | XMS_ITS | Encounter Summary ---
Author Organization [facility] Address [address] [place] [address] Care Team Providers Care Automotive Paint Technician Name Role Phone Romario Hairston MD Primary Care Provider +1- [phone] Encounter Details Date Type Department Care Team (Late st Contact Info) Description 07/11/2020 Lab Requisition [facility] Pathology & Laboratory Medicine - [address] [address] Outr Resulting Lab, Provider Social History Tobacco Use Types Packs/Day Years [...] EDT Telemedicine [facility] Neurology Clinic [address] [place] [id number] Brayan Polk MD [address] [place] [address]- [address] [place] [address] 07/14/2025 14:30 EDT Office Visit [facility] Hematology & Oncology - [address] [address] Evin Maria MD [address] [place] [address], [address] [place] [address] documented as of this encounter Procedures Procedure Name Priority Date/Time Associated Diagnosis Comments HN LAB PATH REVIEW - COAG Today 07/08/2020 12:40 EDT 50/50 MIX FOR SCT Today 07/08/2020 12: 40 EDT LUPUS ANTICOAGULANT CASCADE Routine 07/08/2020 12:40 EDT SILICA CONFIRMATION TEST Today 07/08/2020 12:40 EDT LA CONFIRM TEST Today 07/08/2020 12:40 EDT PROTEIN S ACTIVITY Routine 07/08/2020 12 :40 EDT ANTITHROMBIN, FUNCTIONAL Routine 07/08/2020 12:40 EDT FACTOR 8 ASSAY Routine 07/08/2020 12:40 EDT PROTEIN C ACTIVITY Routine 07/08/2020 12 :40 EDT documented in this encounter Results * HN LAB DIFF PATH REVIEW - COAG (07/08/2020 12:40 EDT) [facility] Pathology Review Comment - Coagulation Lupus anticoagulant results reviewed by Terry Dinh IV, MD 07/15/2020 13:[address] [facility] Blood VENOUS BLOOD / Unknown 07/08/2020 12:40 EDT 07/11/2020 20:48 EDT us Provider Outr Resulting Lab HEMATOLOGY & PF4 ORD ERABLES Final Result Performing Organization Address City/[facility]/ZIP Co de Phone Number [facility] [address] [place] [address] * 50/50 MIX FOR SCT (07/08/2020 12:40 EDT) [facility] SCT Screen Mix Ratio 40.5 30.2 - 48.4 secs 07/14/2020 14:[address] [facility] SCT Control 38.4 secs 07/14/2020 14:[address] [facility] Blood VENOUS BLOOD / Unknown 07/08/2020 12:40 EDT 07/11/2020 20:48 EDT us Provider Outr Resulting Lab HEMATOLOGY & PF4 ORD ERABLES Final Result [facility] [address] [place] [address] * (ABNORMAL) SILICA CONFIRMATION TEST (07/08/2020 12:40 EDT) [facility] Silica Clot Confirm 40.2 27.2 - 43.3 secs 07/14/2020 14:[address] [facility] Silica Clot TR Ratio 1.19(H) <=1.16 07/14/2020 14:[address] [facility] Blood VENOUS BLOOD / Unknown 07/08/2020 12:40 EDT 07/11/2020 20:48 EDT us Provider Outr Resulting Lab HEMATOLOGY & PF4 ORD ERABLES Final Result Performing Organization Address [facility] Co de Phone Number [facility] [address] [place] [address] * (ABNORMAL) LA CONFIRM TEST (07/08/2020 12:40 EDT) [facility] Dilute Yung Viper Venom Time Confirm 34.9(H) 25.1 - 30.2 secs 07/14/2020 14:[address] [facility] LA Ratio 1.04 <=1.16 07/14/2020 14:[address] [facility] Blood VENOUS BLOOD / Unknown 07/08/2020 12:40 EDT 07/11/2020 20:48 EDT Provider Outr Resulting Lab HEMATOLOGY & PF4 ORD ERABLES Final Result Performing Organization Address [facility] de Phone Number [facility] [address] [place] [address] * (ABNORMAL) LUPUS ANTICOAGULANT CASCADE (07/08/2020 12:40 EDT) [facility] LA [place] Summary Indeterminate for Lupus Anticoagulant (LA); a LA cannot be excluded. Where clinical suspicion for antiphospholipid syndrome is high, it may be appropriate to perform alternative testing. ??Specific factor inhibitors should be ruled out, if clinically indicated. The laboratory criteria for Antiphospholipid Syndrome (aPS) include positive testing for one of the following on 2 or more occasions, at least 12 weeks apart: 1) Lupus anticoagulant, 2) Cardiolipin antibodies (IgG or IgM) in medium or high titer, 3) Vroz-9-kxkvgenywvwz 1 antibodies (IgG or IgM) in medium or leilani titer. Solid phase assays for Yanl-1-seanptugpqlq 1 (B2GP1) and Cardiolipin antibodies are also recommended. Correlation with those results is advised. Should this patient require treatment with unfractionated heparin, monitor via the anti-Xa methodology as the aPTT may provide inaccurate therapeutic levels. Based on the pattern of results, specific factor inhibitors (particularly to the intrinsic pathway) should be ruled out, if clinically indicated. There was significant resident/fellow involvement in the diagnostic evaluation of this case. By the signature below, the attending physician certifies that they have reviewed the results of laboratory testing from the described specimen(s) and personally confirmed the above diagnosis rendered by Dr. Claudio Taylor 07/15/2020 13:[address] [facility] Dilute Viper Venom 40.1(H) 27.2 - 36.9 secs 07/15/2020 13:[address] [facility] Silica Clotting Time 49.7(H) 30.2 - 48.4 secs 07/15/2020 13:[address] [facility] Blood VENOUS BLOOD / Unknown 07/08/2020 12:40 EDT 07/11/2020 20:48 EDT us Provider Outr Resulting Lab HEMATOLOGY & PF4 ORD ERABLES Final Result [facility] [address] [place] [address] * PROTEIN S ACTIVITY (07/08/2020 12:40 EDT) Protein S Activity 127 64 - 147 % 2019 9:[address] [facility] Comment: a.Acquired Protein S deficiencies are associated with vitamin K antagonists, acute thrombotic events, , vitamin K deficiency, L-aspariginase treatment and inflammatory syndrome. Deficiencies may or may not be present in liver disease and DIC. b.Results may be affected by plasma heparin levels greater than 1.6 U/mL for UFH or greater than 1.8 U/mL for LMWH. c.Results may be overestimated in the presence of direct Xa inhibitors (rivaroxaban, apixaban, edoxaban) and direct thrombin inhibitors (dabigatran, argatroban, bivalirudin). d.Acute illness and/or thrombosis may influence test results in an unpredictable manner, therefore results should be interpreted with caution in this setting. e.Age and hormonal status may affect the normal range for females. Blood VENOUS BLOOD / Unknown 07/08/2020 12:40 EDT 07/11/2020 20:48 EDT Provider Outr Resulting Lab HEMATOLOGY & PF4 ORD ERABLES Final Result Performing Organization Address [facility] Co de Phone Number [facility] [address] [place] [address] * PROTEIN C ACTIVITY (07/08/2020 12:40 EDT) Protein C Clot 147 71 - 199 % 07/13/2020 9:[address] [facility] Comment: a. Acquired Protein C deficiencies are associated with vitamin K antagonists, acute thrombotic events, vitamin K deficiency, liver disease and DIC. b. Results may be affected by plasma heparin levels greater than 1.5 U/mL for UFH and 0.8 for LMWH. c. Results may be overestimated in the presence of direct Xa inhibitors (rivaroxaban, apixaban, edoxaban) and direct thrombin inhibitors (dabigatran, argatroban, bivalirudin). d. Acute illness and/or thrombosis may influence test results in an unpredictable manner; therefore, results should be interpreted with caution in this setting. Blood VENOUS BLOOD / Unknown 07/08/2020 12:40 EDT 07/11/2020 20:48 EDT us Provider Outr Resulting Lab HEMATOLOGY & PF4 ORD ERABLES Final Result Performing Organization Address City/[facility]/ZIP Co de Phone Number [facility] [address] [place] [address] * (ABNORMAL) FACTOR 8 ASSAY (07/08/2020 12:40 EDT) Factor 8 Assay 215(H) 50 - 150 % 07/12/2020 11:[address] [facility] Blood VENOUS BLOOD / Unknown 07/08/2020 12:40 EDT 07/11/2020 20:48 EDT us Provider Outr Resulting Lab HEMATOLOGY & PF4 ORD ERABLES Final Result Performing Organization Address [facility] Co de Phone Number [facility] [address] [place] [address] * (ABNORMAL) ANTITHROMBIN, FUNCTIONAL (07/08/2020 12:40 EDT) Antithrombin, Functional 129(H) 85 - 125 % 07/13/2020 9:[address] [facility] Comment:Results may be overe stimated in the presence of DOACs such as apixaban, edoxaban, and rivaroxaban, direct thrombin inhibitors such as dabigatran, Hirudin (Refludan) and Argatroban (Novastan). Acute illness and/or thrombosis may influence test results in an unpredictable manner, therefore results should be interpreted with caution in this setting. Blood VENOUS BLOOD / Unknown 07/08/2020 12:40 EDT 07/11/2020 20:48 EDT Provider Outr Resulting Lab HEMATOLOGY & PF4 ORD ERABLES Final Result Performing Organization Address [facility] Co de Phone Number [facility] [address] [place] [address] documented in this encounter Visit Diagnoses Not on filedocumented in this encounter Additional Health Concerns Infection Onset Date Last Indicated Resolved Time R/O COVID-19 Comment:Negative result 03/07/2022 03/07/2022 03/07/2022 9:37 EDT R/O COVID-19 01/28/2024 01/28/2024 01/29/2024 0:27 EST documented as of this encounter Care Teams Automotive Paint Technician Relationship Specialty Start Date End Date Romario Hairston MD [address] [place] [address] PCP - General 07/06/20 documented as of this encounter
--- OUTSIDE RECORDS SUMMARY | 2024-12-03 16:00 | XMS_ITS | Encounter Summary ---
Author Organization [facility] Address [address] [place] [address] Care Team Providers Care Thread Trimmer Name Role Phone Romario Hairston MD Primary Care Provider +1- [phone] Encounter Details Date Type Department Care Team (Late st Contact Info) Description 07/08/2020 Results Only [facility] Neurosurgery - [address] [address] Melany Pedro NP [address] [facility], [address] [place] [phone] Social History Tobacco Use Types Packs/Day Years [...] Telemedicine [facility] Neurology Clinic [address] [place] [id number] Brayan Polk MD [address] [place] [address] [address] [place] [address] 07/14/2025 14:30 EDT Office Visit [facility] Cancer Center Hematology & Oncology - [address] [phone] Evin Maria MD [address] [place] [address], [facility], [address] [place] [address] documented as of this encounter Procedures Procedure Name Priority Date/Time Associated Diagnosis Comments PATHOLOGY SUMMARY REPORT Routine 07/08/2020 12:40 EDT documented in this encounter Results * PATHOLOGY SUMMARY REPORT (07/08/2020 12:40 EDT) 07/08/2020 12:4 0 EDT 07/08/2020 12:40 EDT Narrative [facility] - 07/18/2020 11:39 EDT ----- ------- Name: NAPOLEON LOYA ? : [birth year] ?Age/Sex: 50/F ?Unit#: [id number] ? Loc: LAB.OPD ? Status: REG CLI ?? Reg Date: 07/08/20 ? Pt.Phone Number: ? ----- ------- Specimen: [id number] ? STATUS: SOUT ?Spec Date:07/08/20 ? Physician Copies: ?Melany Pedro AP CPT: [id number] ?? 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 ??Some special coag testing was performed during this acute phase of thromboembolic disease. 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 ??No known malignancy, no history of trauma or extended travel. ??Family history of clots in multiple family members is reported. ??Anticoagulant therapy: twice daily lovenox. ??Repeat testing is requested by Melany Pedro APRN. ? IMPRESSION Comment: With regard to elevated Factor VIII, the concurrent elevation of C-reactive protein (CRP) provides evidence of an inflammatory state. ??Factor VIII is an acute phase reactant with levels that rise during periods of acute stress, following surgery, and in inflammatory conditions. ??Levels can also increase as the result of strenuous exercise or the administration of several drugs including epinephrine, DDAVP, or estrogen (for control or hormone replacement therapy). ??Factor VIII levels can be elevated in a number of clinical conditions including carcinoma, leukemia, liver disease, renal disease, hemolytic anemia, diabetes mellitus, deep vein thrombosis, and myocardial infarction. Persistent elevation of factor VIII above 150% (in the absence of other acute phase reactants) has been associated with an increased risk of thrombosis, including reports of cerebral venous thrombosis. Clinical correlation is recommended. ?CLINICAL CONSULT RESULTS ?? Laboratory results include the following: ? ABNORMAL / POSITIVE RESULTS: ? Factor VIII - high at 215% (ref 50-150) ? C-Reactive Protein - also high at 69.5 mg/L (ref <10) ?NOTE: Elevation of both factor VIII and C-reactive protein imply Acute ?Phase Reactant etiology. ??See interpretation/comment. ? ----- ------- Patient: CINDYNAPOLEON ? #[id number] ? (Continued) ----- ------- Specimen: [id number] ? Received: 07/08/20-0 ?(Continued) ?CLINICAL CONSULT RESULTS ?(Continued) ? Lupus Anticoagulant [place] - Indeterminate ?NOTE: Possible heparin effect. ? Phospholipid (Cardiolipin) Antibodies: IgM - Indeterminate ? NORMAL / NEGATIVE RESULTS: ? Phospholipid (Cardiolipin) Antibodies: IgG ? Beta-2 Glycoprotein I Antibodies: IgM and IgG ? Antithrombin III ? Protein C ? Protein S ? Activated Protein C Resistance Assay ? (Note: Previous genetic testing negative for Factor V Leiden mutation). Signed ____(signature on file)____ Linnette Gosnales M.D. 07/18/20 By the signature above, the attending physician certifies that he/she has personally conducted a gross and/or microscopic examination of the described specimens and rendered or confirmed the above diagnosis. Test Performed by [facility], [address] [place] [id number] Collections Technician: Linnette Gonsales MD PHD ----- ------- us Melany Pedro [facility] PATHOLOGY ORDERABLES F inal Result [facility] [address] [place] [address] documented in this encounter Visit Diagnoses Not on filedocumented in this encounter Care Teams Thread Trimmer Relationship Specialty Start Date End Date Romario Hairston MD [facility] [place] [address] PCP - General 07/06/20 documented as of this encounter
--- OUTSIDE RECORDS SUMMARY | 2024-12-03 16:00 | XMS_ITS | Encounter Summary ---
Author Organization [facility] Address [address] [place] [address] Care Team Providers Care All Source Intelligence Technician Name Role Phone Romario Hairston MD Primary Care Provider [phone] Reason for Visit * Auth/Cert Specialty Diagnoses / Procedures Referred By Mitch pruett Referred To Contact Diagnoses Cerebral edema ([facility]) Procedures [place] REPAIR SKULL DEFECT,>5 CM Cranioplasty - Autologous bone Referral ID Status Reason Start Date Expiration Date Visits Re quested Visits Authorized [id number] 1 1 Encounter Details Date Type Department Care Team (Late st Contact Info) Description 07/12/2020 12:48 EDT Anesthesia Event [facility] OR [address] [place] [address] Mike Broderick MD [place], Karl Donald, [facility] [address] [facility], [facility] [address] [place] [phone] Anesthesia Record Procedure Summary Procedure Name Responsible Anesthesiologist Anesthesia Start Time Anesthesia Stop Time Cranioplasty - Autologous bone (Left: Head) Mike Broderick MD 07/12/20 1248 07/12/20 1540 Events Date Time Event Comment 07/12/2020 1248 An Start The patient was re-evaluated immediately before moderate or deep sedation use, before anesthesia induction, or before the anesthesia procedure. 1248 An Start Data 1259 An Induction The patient was reevaluated immediately before moderate or deep sedation use and before anesthesia induction. 1308 An Intubation 1312 Anesthesia Ready 1515 An Extubation Spontaneous ve ntilation resumed; any neuromuscular blockade reversed or spontaneously resolved; TOF and DBS without fade; purposeful movement; awake extubation 1525 an stop data Transferred to ICU, monitored, VSS 1540 Handoff to RN I completed my handoff to the receiving nurse during which we: 1. Identified the patient 2. Identified the responsible provider 3. Reviewed the pertinent medical history 4. Discussed the surgical course 5. Reviewed intra-op anesthesia management and issues during anesthesia 6. Set expectations for post-procedure period 7. Allowed opportunity for questions and acknowledgement of understanding. 1540 An Stop Meds Name Total ePHEDrine pre-filled syringe 10 mg fentanyl citrate (PF) injection 175 mcg ketAMINE 5 mL prefilled syringe 10 mg midazolam 1 mg/mL 2 mL vial 2 mg phenylephrine pre-filled syringe 100 mcg propOFol (DIPRIVAN) injection 210 mg propofol (DIPRIVAN) 500 mg in 50 mL infu maay 845,340 mcg rocuronium 10 mg/mL vial 50 mg sugammadex 100 mg/mL 2 mL vial 200 mg remifentaniL (ULTIVA) 2,000 mcg 60 mcg remifentaniL (ULTIVA) 2,000 mcg 623 mcg ceFAZolin (ANCEF) syringe 2 g 2 g lactated ringers (LR) infusion 800 mL * Agents Name Insp Sevoflurane Exp Sevoflurane O2 N2O Air * Blood No blood administrations on file. Lines, Drains, and Airways Type Details Placement Removal Wound 02/16/20; Incision; Left, Lateral; Head; Surgical incision for left decompressive craniectomy; N; 03/07/22; 1243 02/16/20 0000 by Yudi Prado, AZALEA 03/07/22 1243 by Adriana Chaudhary, [place]ALEA Urethral Catheter 07/12/20; Inserted b y RN; Selected surgical procedures/Epidural; Non-latex; 16 fr; 10 ml; Yes; 07/14/20; 0615 07/12/20 0000 by Yudi Prado, AZALEA 07/14/20 0615 by Kendra Yousif, [place]ALEA Peripheral IV 07/12/20; 1153; 06/26 12/14; Anterior, Left, Proximal; Forearm; Inserted by RN; 1; 3.15% Chlorhexidine with IPA; 07/13/20; 1605; Infiltrated, Painful, Per protocol; Catheter intact, Dressing applied 07/12/20 1153 by Hina Preston RN 07/13/20 1605 by Crystal Zendejas, AZALEA Non-Surgical Airway 07/12/20; 1325 (crea ava via procedure documentation); 07/12/20; 1515 07/12/20 1325 by Haile Nails CRNA 07/12/20 1515 by Haile Nails CRNA Wound 07/12/20; 1336; Inci maya; Left, Lateral; Head; Surgical incision for left cranioplasty; 03/07/22; 1243 07/12/20 1336 by Yudi Prado RN 03/07/22 1243 by Adriana Chaudhary RN Closed/Suction Drain 07/12/20; 1430; In OR by MD; Posterior; Scalp; 10 Scottish; 07/13/20; 1425 07/12/20 1430 by Yudi Prado RN 07/13/20 1425 by Ac Dickerson RN documented in this encounter Social History Tobacco [...] Answer Entry Date Author Yes 04/27/2020 11:05 J CARLOST Julissa Nunez RN documented in this encounter OR Notes * Anesthesia Postprocedure Evaluation - Haile Nails APRN - 07/12/2020 1540 EDT Patient: Ynes White Vital signs were reviewed with the recovery nurse. [facility] Vitals Value Taken Time BP 146/76 07/12/20 1540 Temp 07/12/20 1540 Resp 16 07/12/20 1539 Pulse From Oximetry 103 BPM 07/12/20 1539 SpO2 96 % 07/12/20 1539 Vitals shown include unvalidated device data. Last Pain Score - Numeric Pain Level (Scale 1-10): 7 Type of Anesthesia - general Anesthesia Post Evaluation Post-procedure vitals reviewed and are stable. Level of consciousness: awake Respiratory status: airway patent, room air and O2 Sat-appropriate for condition Cardiovascular status: appropriate for condition Hydration status: adequate Nausea/Vomiting: none Pain management: adequate Post-Op Assessment: patient tolerated procedure well with no complications Patient participation: able to participate Disposition: inpatient Anesthesia Complications: No apparent anesthesia complications * Anesthesia Procedure Notes - Haile Nails APRN - 07/12/2020 1324 EDTAssociated Order(s): Airway Airway Date/Time: 07/12/2020 13:08 Urgency: elective Airway not difficult General Information and Staff Patient location during procedure: OR Performed: resident/CHROME CLEANER/AA Indications and Patient Condition Indications for airway management: anesthesia Sedation level: GA Preoxygenated: yes Patient position: sniffing Ventilation assessment: 2 - Oral airway inserted Final Airway Details Final airway type: endotracheal airway Successful airway: ETT Cuffed: yes Successful intubation technique: video laryngoscopy Bennett Facilitating devices/methods: intubating stylet Endotracheal tube insertion site: oral Blade size: #3 ETT size (mm): 7.0 Cormack-Lehane Classification: view obtained with video laryngoscopy (grade 1) Placement verified by: capnometry Inital cuff pressure (cm H2O): 25 Measured from: teeth ETT to teeth (cm): 20 Number of attempts at approach: 1 * Anesthesia Preprocedure Evaluation - Haile Nails APRN - 07/12/2020 1201 EDT Anesthesia Preprocedure Evaluation Patient Medical History, including Anesthesia History reviewed. Chart and Nursing Notes reviewed, including NPO status and Medication History. Additional ROS/History Findings: Allergies Allergen Reactions ??? Citalopram Other reaction(s): increased anxiety ??? Duloxetine Other reaction(s): increased anxiety ??? Pregabalin Other reaction(s): dizziness ??? Zolpidem Other reaction(s): sleep walking with over 5 mg Review of Systems Constitutional: Negative. Respiratory: Negative. Cardiovascular: Negative. Past Medical History: Diagnosis Date ??? Exercise involving walking flat surfaces ??? History of general anesthesia ??? Left-sided nontraumatic intracerebral hemorrhage ([facility]) 03/02/2020 Status post decompressive hemicraniectomy ??? Shoulder joint pain right Relevant Problems CARDIOVASCULAR (+) Cerebral venous sinus thrombosis (+) Cerebral venous thrombosis Physical Exam Airway Mallampati: II TM distance: >3 FB Neck ROM: full Comments: overbite Cardiovascular Rhythm: regular Rate: normal Dental Comments: Multiple missing, damaged; patient denies loose teeth Pulmonary Breath sounds clear to auscultation Abdominal Anesthesia Plan ASA 2 Anesthesia Type - general Anesthesia plan and risks discussed. Informed consent obtained from patient. PAT Note (Notes from 06/12/20 through 07/12/20) No notes of this type exist for this encounter. documented in this encounter Plan of Treatment Upcoming Encounters Date Type Department Care Team (Late st Contact Info) Description 03/04/2025 14:00 EDT Telemedicine [facility] [address] [facility], [place] [address] Brayan Polk MD [address] [facility] [address] [place] [phone] 07/14/2025 14:30 EDT Office Visit [facility] H[facility] & Oncology - [facility] [address] [place] [address] Evin Maria MD [address] [facility], [address] [place] [phone] documented as of this encounter Procedures Procedure Name Priority Date/Time Associated Diagnosis Comments ANESTHESIA INTUBATION Routine 07/12/2020 13:24 EDT documented in this encounter Results * [place] AN ELECTIVE ENDOTRACHEAL AIRWAY (07/12/2020 13:24 EDT) Narrative Haile Nails APRN - 07/12/2020 13:24 EDT Haile Nails APRN ? 07/12/2020 13:25 Airway Date/Time: 07/12/2020 13:08 Urgency: elective Airway not difficult General Information and Staff Patient location during procedure: OR Performed: resident/CHROME CLEANER/AA Indications and Patient Condition Indications for airway management: anesthesia Sedation level: GA Preoxygenated: yes Patient position: sniffing Ventilation assessment: 2 - Oral airway inserted Final Airway Details Final airway type: endotracheal airway Successful airway: ETT Cuffed: yes Successful intubation technique: video laryngoscopy Bennett Facilitating devices/methods: intubating stylet Endotracheal tube insertion site: oral Blade size: #3 ETT size (mm): 7.0 Cormack-Lehane Classification: view obtained with video laryngoscopy (grade 1) Placement verified by: capnometry Inital cuff pressure (cm H2O): 25 Measured from: teeth ETT to teeth (cm): 20 Number of attempts at approach: 1 us Tigre Lyman MD ANESTHESIA ORDERABLES Fin al Result documented in this encounter Visit Diagnoses Not on filedocumented in this encounter Administered Medications Inactive Administered Medications - up to 3 most recent administrations Medication Order MAR Action Action Date Dose Rate Site ceFAZolin (ANCEF) syringe 2 g 2 g, intravenous, Administer over 10 Minutes, PRE-OP ONCE, 1 dose, On Sat07/12/20 at 1145, Routine, Preprocedure Given 07/12/2020 13:05 EDT 2 g ePHEDrine injection 25 mg/5 mL syringe PRN, Starting on Sat07/12/20 at 1312, Until Sat07/12/20 at 1540, Routine, Anesthesia Intraprocedure Given 07/12/2020 13:12 EDT 10 mg fentaNYL citrate (PF) injection PRN, Starting on Sat07/12/20 at 1301, Until Sat07/12/20 at 1540, Routine, Anesthesia Intraprocedure Given 07/12/2020 15:38 EDT 50 mcg Given 07/12/2020 15:23 EDT 25 mcg Given 07/12/2020 14:55 EDT 50 mcg ketAMINE in NaCl, iso-osmotic (KETALAR) 50 mg/5 mL (10 mg/mL) IV injection PRN, Starting on Sat07/12/20 at 1538, Until Sat07/12/20 at 1540, Routine, Anesthesia Intraprocedure Given 07/12/2020 15:38 EDT 10 mg lactated ringers (LR) infusion 30 mL/hr, intravenous, CONTINUOUS, Starting on Sat07/12/20 at 1145, Until Sat07/13/20 at 1346, Routine, Preprocedure Rate Documented 07/12/2020 19:00 EDT 30 mL/hr 30 mL/hr Rate Documented 07/12/2020 18:00 EDT 30 mL/hr 30 mL/hr Rate Documented 07/12/2020 17:00 EDT 30 mL/hr 30 mL/hr midazolam (PF) (VERSED) injection PRN, Starting on Sat07/12/20 at 1259, Until Sat07/12/20 at 1540, Routine, Anesthesia Intraprocedure Given 07/12/2020 15:23 EDT 1 mg Given 07/12/2020 12:59 EDT 1 mg phenylephrine HCl in 0.9% NaCl injection PRN, Starting on Sat07/12/20 at 1312, Until Sat07/12/20 at 1540, Routine, Anesthesia Intraprocedure Given 07/12/2020 13:12 EDT 100 mcg propofol (DIPRIVAN) 500 mg in 50 mL infusion FA IP EQF CONTINUOUS PRN FOR ONE STEP MEDS, Starting on Sat07/12/20 at 1248, Until Sat07/12/20 at 1540, Routine, Anesthesia Intraprocedure Rate Change 07/12/2020 14:56 EDT 75 mcg/kg/min 34.7 mL/hr Rate Change 07/12/2020 14:53 EDT 125 mcg/kg/min 57.9 mL/hr Rate Change 07/12/2020 14:33 EDT 75 mcg/kg/min 34.7 mL/hr propOFol (DIPRIVAN) injection PRN, Starting on Sat07/12/20 at 1301, Until Sat07/12/20 at 1540, Routine, Anesthesia Intraprocedure Given 07/12/2020 14:53 EDT 10 mg Given 07/12/2020 13:46 EDT 20 mg Given 07/12/2020 13:39 EDT 20 mg remifentaniL (ULTIVA) 2,000 mcg FA IP EQF CONTINUOUS PRN FOR ONE STEP MEDS, Starting on Sat07/12/20 at 1259, Until Sat07/12/20 at 1540, Anesthesia Intraprocedure Rate Change 07/12/2020 15:02 EDT 0.04 mcg/kg/min 9.3 mL/hr Rate Change 07/12/2020 14:10 EDT 0.08 mcg/kg/min 18.5 mL/h r New Bag 07/12/2020 12:59 EDT 0.05 mcg/kg/min 11.6 mL/hr remifentaniL (ULTIVA) 2,000 mcg FA IP EQF CONTINUOUS PRN FOR ONE STEP MEDS, Starting on Sat07/12/20 at 1339, Until Sat07/12/20 at 1540, Anesthesia Intraprocedure Bolus 07/12/2020 14:53 EDT 20 mcg New Bag 07/12/2020 13:39 EDT 40 mcg rocuronium (ZEMURON) injection PRN, Starting on Sat07/12/20 at 1304, Until Sat07/12/20 at 1540, Routine, Anesthesia Intraprocedure Given 07/12/2020 13:04 EDT 50 mg sugammadex (BRIDION) injection PRN, Starting on Sat07/12/20 at 1507, Until Sat07/12/20 at 1540, Routine, Anesthesia Intraprocedure Given 07/12/2020 15:07 EDT 200 mg documented in this encounter Care Teams All Source Intelligence Technician Relationship Specialty Start Date End Date Romario Hairston MD [address] [place] [address] PCP - General 07/06/20 documented as of this encounter
--- OUTSIDE RECORDS SUMMARY | 2024-12-03 16:00 | XMS_ITS | Encounter Summary ---
Author Organization [facility] Address [address] [place] [address] Care Team Providers Care Legal Operations Manager Name Role Phone Romario Hairston MD Primary Care Provider [phone] Reason for Visit * Auth/Cert Specialty Diagnoses / Procedures Referred By Mitch t Referred To Contact Diagnoses Cerebral edema (HCC-CMS) Procedures OK REPAIR SKULL DEFECT,>5 CM Cranioplasty - Autologous bone Referral ID Status Reason Start Date Expiration Date Visits Re quested Visits Authorized [id number] 1 1 Encounter Details Date Type Department Care Team (Late st Contact Info) Description 07/12/2020 10:57 EDT - 07/14/2020 11:35 EDT Hospital Encounter [facility] Surgical Intensive Care Unit [address] [place] [address] Claus Piña MD [address] [facility], [facility] [address] [place] [address] 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 *Cerebral edema ([facility]) 02/17/2020 ??? History of cranial surgery 07/12/2020 Resolved Hospital Problems No resolved problems to display. Principal Procedure: Left sided autologous cranioplasty (Dr. 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 iPña, 02/16/20) who presents for left sided autologous [...] awake, alert Conversant Incision CDI No drift Recyclable Materials Collector 5/5 Elbow flexion and extension 5/5 Wiggles [...] FINDINGS: There is a focal nodular opacity [id number] mm within the left lateral lower lobe. [...] a noncritical result requiring follow-up on the [employer] PACS findings application, to be tracked by the [facility] tracking system. REPORT SIGNED IN OTHER VENDOR SYSTEM 07/08/2020 Reported By: Iron Romero MD CC: Transcribed Date/Time: 07/08/2020 (3700) Cutter Wet Machine: Printed Date/Time: 07/08/2020 (1613) PAGE [address] Outside Images [...] 13:00 Telemedicine Visit with Verenice Correa APRN [facility] Adult Neurology - [facility] (--) [address] [place] [id number] Oct 05, 2020 11:30 Telemedicine Visit 15 Mins with Evin Maria MD [facility] Hematology & Oncology - [facility] ([facility]) [address] [facility] [address] Follow-up appointments and procedures Amb Consult/Follow Up Neurosurgery Reason for Request: fu sp cranioplasty 4 wks Authorizing Provider: Antonieta [...] Disposition Code Departure Means Destination Home-Health Care [facility] Home documented in this encounter Progress Notes * Mar Strange - 07/14/2020 1135 EDT Case Management Note: Received a call from [facility] HH Liaison regarding need for Resuming HH orders for patient with [facility]. Contatced Neurosurgery Resident, Dr. Langley and HH orders have been entered for patient for Nursing,OT, PT and LCSW. Mar Strange RN Case Manager ll Case Management and Social Work [address] [address] Pager # [phone] * Darwin Willoughby RN - 07/14/2020 1122 EDT The patient's sister, Lucille, came to oyster picker the patient. Discharge instructions were reviewed [...] Risk Assessment REASON FOR ADMISSION: Cerebral edema ([facility]) POD #1 FTP cranioplasty Patient understands reason for admission: Yes PATIENT CONTACT INFO VERIFIED: Yes PATIENT ADDRESS VERIFIED: Yes Type of housing (single family, condo, apartment, long-term, single room occupancy, [facility] funded hotel room, group retirement) - Apartment Who does the patient live [...] For Finances: No TRANSPORTATION: Transportation: Family CULTURAL, FAITH and/or LANGUAGE factors affecting health care/discharge planning: [...] Health Services: Home PT/OT, Nurse visit, Other (Comment)(LCSW) DME Provider: Pharmacy: [id number] AT SEC OF [facility] & [address] [address] [facility] ([facility] - [facility] [address] [facility] [address] [place] [id number] Home Health: [facility] Other: POST HOSPITAL TRANSITION PLAN: Met with patient at bedside and also contacted Ever Linda - S/O Friend to review case management assessment. Ever Linda lives with patient and provides 24/7 support and transportation. [facility] has been providing PT, OT, LCSW and Nursing and will resume when discharged. [...] Neurosurgery Resident 07/13/2020 13:46 Neurosurgery Service Pager [phone] * Shivam Alcantar MD - 07/13/2020 0902 [...] Wt 77.2 kg (170 lb 3.1 oz) NcD035% BMI 29.21 kg/m?? Oriented to name, not [...] ALCANTAR MD Neurosurgery resident 07/13/2020 9:02 Page [phone] with questions * Claus Piña MD - [...] FACS FAANS Professor, Neurological Surgery * Cathryn Shaw, RT - 07/12/2020 204 EDT Respiratory Consult/Progress Note Indications for Respiratory [...] air. No respiratory needs at this time. CATHRYN SHAW, 07/12/20 * Antonieta Pickett MD - 07/12/2020 1633 EDT Neurosurgery Post Procedure Note Problems/ Previous [...] symmetric Facial sensation grossly intact BUE antigravity Recyclable Materials Collector 5/5 bl Elbow extension and flexion 5/5 [...] PICKETT MD Neurosurgery resident 07/12/2020 16:33 Page [phone] with questions documented in this encounter H&P Notes * Haile Brown MD - 07/12/2020 1136 EDT The preoperative history and physical which [...] Neurosurgery Resident 07/12/2020 11:36 Neurosurgery Service Pager [phone] Cosigned by Claus Piña MD at 07/12/2020 12:54 EDT Source Note - SOCIAL MEDIA JOB TITLES, SCAN 2 - 07/11/2020 11:24 EDT documented in this encounter Nursing Notes * Reid Naik RN - 07/12/2020 1134 EDT Preop Covid DOS screening questionnaire Please [...] PreOp - Hina Preston RN - 07/12/2020 8893 EDT COVID 19 Screening Perioperative PreOp Surgical Waiting Area Screening: Patient and Family will be screened at designated points of entry to [facility] Patient and Family will be screened [...] to: PreOp TL, PreOp bedside RN, PACU copy lathe operator, Anesthesia and Surgeon. Managers as needed. ??? [...] dirty?? ) RN to receive patient from [facility] in Droplet Precaution PPE and transport patient to designated room. Ensure patient is wearing a mask prior to transport. ??? PreOp Screening RN to document using [employer] smart phrase (.SWACOVIDS) ??? If patient is [...] unless special circumstances (Child, cognitive impairment, and machine hoop maker helper). Pt temp: Visitor Temp: Visitor Name: (If [...] PreOp - Hina Preston RN - 07/12/2020 2688 EDT The Patient Declines testing for prior to the Surgery/ Procedure. The following were Explained to the Patient: ?? Testing is done to minimize the risk of potential adverse effects of Anesthesia/ Surgery on a developing fetus ?? It is a [facility] Policy to test all females who are having menstrual periods ?? It is for their safety and that of a developing fetus should they be ?? The Patient does have the right to decline and understands the risks of not obtaining the test The Surgeon tip and Anesthesiologist yes were notified. * OR Surgeon - Claus Piña MD - 07/12/2020 1055 EDT OPERATIVE REPORT SERVICE DATE: 07/12/2020 PREOPERATIVE DIAGNOSIS: Cranial defect. POSTOPERATIVE DIAGNOSIS: Cranial defect. PROCEDURE: Left frontal, temporal and parietal cranioplasty greater than 5 cm, using autologous bone. SURGEON: Claus Piña MD WAGE AND SALARY ADMINISTRATOR: Haile Brown MD ANESTHESIA: General. INDICATIONS: The [...] retained. Claus Piña MD / TC/DF Confirmation: [id number] Dictation ID: [id number] cc: * Preprocedure Instructions - Hina Preston RN - 07/11/2020 0944 EDT Yneslake White has been instructed as follows regarding [...] Care - Kendra Cowart RN - 07/14/2020 0544 EDT Problem: Daily Care Plan Goals Goal: [...] Neuro status remain unchanged. Awaiting transfer to [facility] 5. Will continue to monitor. KENDRA [...] sided autologous cranioplasty Surgeon: Claus Piña MD Prop Making Supervisor: Haile Brown MD Findings: Well approximated bone [...] Brown MD Neurosurgery Resident 07/12/2020 15:18 Pager [phone] documented in this encounter Plan of Treatment Upcoming Encounters Date Type Department Care Team (Late st Contact Info) Description 03/04/2025 14:00 EDT Telemedicine [facility] [address] [place] [address] Brayan Polk MD [address] [facility] [address] [place] [address] 07/14/2025 14:30 EDT Office Visit [facility] Hematology & Oncology - [address] [phone] Evin Maria MD [address] [place] [address], [facility], Level [address] [place] [phone] Pending Results Name Type Priority Associated Diagnoses [...] IN DIAMETER 07/12/2020 12:33 EDT Cerebral edema ([facility]) Special Needs Bone in storage CT HEAD WO CONTRAST STAT 07/12/2020 1 2:19 EDT TYPE AND SCREEN Today 07/12/2020 11:50 EDT documented in this encounter Results * ECG REPORT - SCANNED (07/19/2020 7:47 EDT) 07/19/2020 7:47 EDT us Scan 2 Attending Ambulatory Care PROCEDURE/MINOR SURGICAL OR DERABLES Final Result * [...] with the findings. us Haile Brown MD IM CT ORDERABLES Final Resu lt * (ABNORMAL) COMPLETE BLOOD COUNT AND DIFFERENTIAL (07/13/2020 3:24 EDT) WBC 7.59 4.00 - 12.40 K/cmm 07/13/2020 4:16 EDT [facility] RBC 3.97 3.86 - 5.04 M/cmm 07/13/2020 4:16 EDT [facility] Hemoglobin 11.5(L) 11.6 - 15.2 gm/dL 07/13/2020 4:16 EDT [facility] HCT 34.6(L) 34.9 - 44.4 % 07/13/2020 4:16 [facility] MCV 87 81 - 98 fl 07/13/2020 4:16 [facility] MCH 29.0 26.7 - 33.3 pg 07/13/2020 4:16 [facility] MCHC 33.2 32.1 - 35.9 gm/dL 07/13/2020 4:16 [facility] RDW-CV 13.2 <14.7 % 07/13/2020 4:16 [facility] RDW-SD 41.7 <50.4 fl 07/13/2020 4:16 [facility] PLT 174 141 - 377 K/cmm 07/13/2020 4:16 [facility] MPV 11.0 9.5 - 12.7 fl 07/13/2020 4:16 [facility] % Neutrophils 63.8 % 07/13/2020 4:16 [facility] % Lymphocytes 28.7 % 07/13/2020 4:16 [facility] % Monocytes 4.9 % 07/13/2020 4:16 [facility] % Eosinophils 2.0 % 07/13/2020 4:16 [facility] % Basophils 0.3 % 07/13/2020 4:16 [facility] % Immature Grans 0.3 % 07/13/20 4:16 [facility] Absolute Neutrophils 4.85 2.20 - 8.85 K/cmm 07/13/2020 4:16 [facility] Absolute Lymphocytes 2.18 1.09 - 3.30 K/cmm 07/13/2020 4:16 [facility] Absolute Monocytes 0.37 0.10 - 0.80 K/cmm 07/13/2020 4:16 [facility] Absolute Eosinophils 0.15 0.03 - 0.61 K/cmm 07/13/2020 4:16 [facility] ABS Basophils 0.02 0.01 - 0.11 K/cmm 07/13/2020 4:16 [facility] Absolute Immature Grans 0.02 0.00 - 0.06 K/cmm 07/13/2020 4:16 EDT [facility] Type of Differential: Auto 07/13/2020 4:16 EDT [facility] Blood VENOUS BLOOD / Unknown Venipuncture / Unknown 07/13/2020 3:24 EDT 07/13/2020 4:07 EDT us Haile Brown MD PACKAGES & DNA PROBE ORDERAB LES Final Result Performing Organization Address [facility] de Phone Number [facility] [address] [place] [address] * CREATININE (07/13/2020 3:24 EDT) Creatinine 0.87 0.52 - 1.04 mg/dL 07/13/2020 4:24 EDT [facility] eGFR 77 >60 mL/min/1.7 3m2 07/13/2020 4:24 EDT [facility] Comment:eGFR calculated mickey redd CKD-EPI equation for non- Americans. Multiply eGFR by 1.16 for patients. Blood VENOUS BLOOD / Unknown Venipuncture / Unknown 07/13/2020 3:24 EDT 07/13/2020 4:07 EDT us Haile Brown MD CHEMISTRY & BLOOD GAS ORDERA BLES Final Result Performing Organization Address [facility] Co de Phone Number [facility] [address] [place] [address] * BUN (07/13/2020 3:24 EDT) BUN 13 10 - 26 mg/dL 07/13/2020 4:24 EDT [facility] Blood VENOUS BLOOD / Unknown Venipuncture / Unknown 07/13/2020 3:24 EDT 07/13/2020 4:07 EDT us Haile Brown MD CHEMISTRY & BLOOD GAS ORDERA BLES Final Result Performing Organization Address City/[facility] Co de Phone Number [facility] [address] [place] [address] * ELECTROLYTES (07/13/2020 3:24 EDT) Sodium 137 136 - 145 mEq/L 07/13/2020 4:24 EDT [facility] Potassium 4.6 3.5 - 5.0 mEq/L 07/13/2020 4:24 EDT [facility] Chloride 102 96 - 110 mEq/L 07/13/2020 4:24 EDT [facility] CO2 Total 27 22 - 32 mEq/L 07/13/2020 4:24 EDT [facility] Blood VENOUS BLOOD / Unknown Venipuncture / Unknown 07/13/2020 3:24 EDT 07/13/2020 4:07 EDT us Haile Brown MD CHEMISTRY & BLOOD GAS ORDERA BLES Final Result Performing Organization Address [facility] Co de Phone Number [facility] [address] [place] [address] * CT HEAD WO CONTRAST (07/12/2020 12:19 [...] with the findings. us Antonieta Pickett MD IM CT ORDERABLES Final Resul t * TYPE AND SCREEN (07/12/2020 11:50 EDT) ABO AB 07/12/2020 13:07 [facility] Rh Factor Positive 07/12/2020 13:07 [facility] Antibody Screen Negative 07/12/2020 13:07 [facility] Specimen Expires: 07/15/2020 @ 23:59 07/12/2020 13:07 [facility] Blood VENOUS BLOOD / Unknown Venipuncture / Unknown 07/12/2020 11:50 EDT 07/12/2020 11:54 EDT Celia Luis PA-C BLOOD BANK TESTS Ed ited Result - Final Performing Organization Address City/State/[facility] Co de Phone Number [facility] [address] [facility] [place] [address] documented in this encounter Visit Diagnoses Diagnosis Cerebral edema (HCC-CMS)- Primary Cerebral edema History of cranial surgery Other postprocedural status Nontraumatic hemorrhage of left cerebral hemisphere (HCC-CMS) History of cranial surgery Other postprocedural status [...] mg Given 07/13/2020 18:02 EDT 1,000 mg acetaminophen (TYLENOL) tablet 650 mg 650 mg, oral, EVERY 4 HOURS PRN, Starting on Sat07/12/20 at 1545, Until Sat07/12/20 at 2042, Pain, Routine Given 07/12/2020 18:28 EDT 650 mg buPROPion (WELLBUTRIN XL) XL tablet 300 mg [...] mg Given 07/12/2020 21:31 EDT 100 mg electrolyte-A (PLASMALYTE-A) solution at 100 mL/hr, intravenous, CONTINUOUS, Starting on Sat07/12/20 at 1615, Until Sat07/13/20 at 0156, Routine Rate Documented 07/13/2020 1:00 EDT 100 mL/hr Rate Documented 07/13/2020 0:00 EDT 100 mL/hr Rate Documented 07/12/2020 23:00 EDT 100 mL/hr enoxaparin (LOVENOX) injection 40 mg 40 mg, subcutaneous, DAILY, First dose on Tiffanie 07/14/20 at 0900, Until Discontinued, Routine Given 07/14/2020 8:42 EDT 40 mg fentaNYL citrate (PF) injection 25-50 mcg 25-50 mcg, intravenous, EVERY 1 HOUR PRN, Starting on Sat07/12/20 at 1545, Until Sat07/13/20 at 2129, Pain, For breakthrough pain not controlled with oral medications., Routine Given 07/13/2020 17 :28 EDT 50 mcg Given 07/13/2020 14:30 EDT 50 mcg Given 07/13/2020 13:26 EDT 50 mcg gabapentin (NEURONTIN) capsule 100 mg 100 mg, oral, 3 TIMES DAILY, First dose on Sat07/12/20 at 2100, Until Discontinued, Routine Given 07/14/2020 8:42 EDT 10 0 mg Given 07/13/2020 20:37 EDT 100 mg Given 07/13/2020 9:17 EDT 100 mg hydrALAzine (APRESOLINE) injection 10 mg 10 mg, intravenous, EVERY 1 HOUR PRN, Starting on Sat07/13/20 at 2140, Until Tiffanie 07/14/20 at 1341, High Blood Pressure, Routine lactated ringers (LR) infusion 30 mL/hr, intravenous, CONTINUOUS, Starting on Sat07/12/20 at 1145, Until Sat07/13/20 at 1346, Routine, Preprocedure Rate Documented 07/12/2020 19:00 EDT 30 mL/hr 30 mL/hr Rate Documented 07/12/2020 18:00 EDT 30 mL/hr 30 mL/hr Rate Documented 07/12/2020 17:00 EDT 30 mL/hr 30 mL/hr methocarbamoL (ROBAXIN) tablet 1,000 mg 1,000 mg, [...] Until Sat07/12/20 at 2042, Pain, discomfort, Routine Given 07/12/2020 18:28 EDT 10 mg oxyCODONE (ROXICODONE) immediate release tablet 5-15 mg 5-15 mg, oral, EVERY 4 HOURS PRN, Starting on Sat07/12/20 at 2041, Until Tiffanie 07/14/20 at 1341, Pain, Routine Given 07/13/2020 10:00 [...] Routine Given 07/14/2020 9:48 EDT 1 Tablet documented in this encounter Historical Medications * [...] - Provider: Ac Dickerson RN - Reason: Nausea/Vomiting)1802 (Given - Provider: Ac Dickerson RN) 0023 (Given - Provider: Kendra Cowart RN)0609 (Given - Provider: Kendra Cowart RN)1200 (Canceled Entry - Provider: Batch Job User Admin - Comment: Automatically canceled at discontinue of medication order) buPROPion (WELLBUTRIN XL) XL tablet 300 mg 300 mg, oral, DAILY, First dose on Sat07/13/20 at 0900, Until Discontinued 916 (Given - Provider: Ac Dickerson RN) 0842 [...] 2131 (Given - Provider: Kendra Cowart RN) 0919 [...] - Provider: Ac Dickerson RN - Reason: Nausea/Vomiting)203 (Given - Provider: Kendra Cowart RN) 0842 [...] on Sat07/12/20 at 2100, Until Discontinued, Routine 2130 (Given - Provider: Kendra Cowart RN) 2217 (Given - Provider: Kendra Cowart RN) ramelteon (ROZEREM) tablet 8 mg 8 mg, oral, AT BEDTIME, First dose on Sat07/12/20 at 2100, Until Discontinued, Routine 2130 (Given - Provider: Kendra Cowart RN) 2217 (Given - Provider: Kendra Cowart RN) Continuous Medication Order 07/12/2020 07/13/2020 07/14/2020 electrolyte-A (PLASMALYTE-A) solution (CANCELED) at 100 mL/hr, intravenous, CONTINUOUS, Starting on Sat07/12/20 at 1615, Until Sat07/13/20 at 0156, Routine 1557 (New Bag - Provider: cA Dickerson RN)1700 (Rate Documented - Provider: Ac [...] Provider: Ac Dickerson RN)2003 (Given - Provider: eKndra Cowart RN)2111 (Given - Provider: Kendra Cowart RN - Comment: dose given from prior adiministration vial) 0408 (Given - Provider: Kendra Cowart RN)0738 (Given - Provider: Mita Justice, AZALEA)1326 (Given - Provider: Ac Dickerson RN)1430 (Given [...] Sat07/14/20 at 1341, High Blood Pressure, Routine ondansetron (PF) (ZOFRAN) injection 4 mg 4 mg, intravenous, EVERY 4 HOURS PRN, Starting on Sat07/12/20 at 1545, Until Sat07/14/20 at 1341, Nausea, Routine 1847 (Given - [...] 2041, Until Sat07/14/20 at 1341, Pain, Routine 0009 (Given - [...] Nausea, Routine 1459 (Given - Provider: Ac Dickerson, AZALEA) scopolamine (TRANSDERM-SCOP) 1 mg over 3 days [...] Count Last Ordered Date First Ordered Date hydrALAzine (APRESOLINE) 10 mg in sodium chloride (NS) 0.9 % 50 mL IVPB 1 07/13/2020 hydrALAzine (APRESOLINE) injection 10 mg 2 07/13/2020 07/12/2020 acetaminophen (TYLENOL) solu tion unit dose cup 650 mg 2 07/12/2020 acetaminophen (TYLENOL) suppository 650 mg 2 07/12/2020 Bacitracin Zinc-Polymyxin B 500-10,000 unit/gram ointment ointment 1 07/12/2020 bupivacaine-EPINEPHrine (PF) 0.5 %-1:200,000 injection 1 07/12/2020 calcium carbonate (TUMS) 200 mg calcium (500 mg) per chewable tablet tablet,chewable 1 Tab 1 07/12/2020 ceFAZolin (ANCEF) syringe 2 g 1 07/12/2020 fentaNYL citrate (PF) 50 mcg/mL injection 1 07/12/2020 Gelatin Adsorbable powder 1 07/12/2020 labetaloL (TRANDATE) injection 10 mg 1 06/25 lidocaine (PF) 10 mg/mL (1 % ) injection 2 mg 1 07/12/2020 melatonin tablet 5 mg 1 07/12/2020 sodium chloride 0.9 % 1,000 mL with bacitracin 50,000 Units, ceFAZolin (ANCEF) 1,000 mg, gentamicin (GARAMYCIN) 100 mg 1 07/12/2020 sodium chloride 0.9 % irrigation 1 07/12/20 Thrombin (Bovine) 5,000 unit topical solution 1 07/12/2020 Nursing Count Last Ordered Date First Orde red Date ACTIVITY INSTRUCTIONS 1 07/14/2020 DRIVING INSTRUCTIONS 1 07/14/2020 WOUND CARE INSTRUCTIONS 1 07/14/2020 CONTRAINDICATION TO ANTICOAG ULATION THERAPY 1 07/12/2020 Respiratory Care Count Last Ordered Date First Ordered Date RESPIRATORY CARE EVALUATION ONLY 1 07/12/20 IV Count Last Ordered Date First Orde [...] 06/26 documented in this encounter Care Teams Legal Operations Manager Relationship Specialty Start Date End Date Romario Hairston MD [address] [place] [address] PCP - General 07/06/20 documented as of this encounter
--- OUTSIDE RECORDS SUMMARY | 2024-12-03 16:00 | XMS_ITS | Encounter Summary ---
Author Organization [facility] Address [address] [place] [address] Care Team Providers Care Card Grader Name Role Phone Romario Hairston MD Primary Care Provider +1- [phone] Encounter Details Date Type Department Care Team (Late st Contact Info) Description 07/08/2020 Results Only C [facility] [address] [place] [address] Linnette Gonsales MD PhD [address] [place] [phone] Social History Tobacco Use Types Packs/Day [...] Assessment Author No 03/02/2020 16:00 EDT Julissa Nunez, AZALEA * Are you blind or do [...] EDT Telemedicine [facility] [address] [place] [phone] Brayan Polk MD [address] [place] [address]-[address] [place] [phone] 07/14/2025 14:30 EDT Office Visit [facility] Cancer Center Hematology & Oncology - [address] [phone] Evin Maria MD [address] [place] [address], [facility], [address] [place] [address] documented as of this encounter Procedures Procedure Name Priority Date/Time Associated Diagnosis Comments INR Routine 07/08/2020 12:40 EDT COAGULATION FACTOR VIII - [facility] Routine 07/08/2020 12:40 EDT ANTITHROMBIN III ANTIGEN - [facility] Routine 07/08/2020 12:40 EDT LUPUS ANTICOAGULANT CASCADE Routine 07/08/2020 12:40 EDT SILICA CONFIRMATION TEST Routine 07/08/2020 12:40 EDT BETA 2 GLYCOPROTEIN ANTIBODY PANEL Routine 07/08/2020 12:40 EDT LA CONFIRM TEST Routine 07/08/2020 12:40 EDT APC RESISTANCE 5 Routine 07/08/2020 12:4 0 EDT PROTEIN S ACTIVITY Routine 07/08/2020 12 :40 EDT PHOSPHOLIPID ANTIBODY Routine 07/08/2020 12:40 EDT PROTIME Routine 07/08/2020 12:40 EDT PROTEIN C ACTIVITY Routine 07/08/2020 12 :40 EDT documented in this encounter Results * (ABNORMAL) SILICA CONFIRMATION TEST (07/08/2020 12:40 EDT) Silica Clot Confirm 40.2 27.2 - 43.3 secs 07/18/2020 8:31 EDT [facility] SILICA CLOT REPORT - [facility] 1.19(A) <=1.16 07/18/2020 8:31 EDT [facility] Comment: Test [place] [id number] 07/08/2020 12:4 0 EDT 07/08/2020 12:40 EDT us Linnette Gonsales MD PhD HEMATOLOGY & PF4 ORDERAB LES Final Result [facility] [address] [place] [address] * (ABNORMAL) LA CONFIRM TEST (07/08/2020 12:40 EDT) Dilute Yung Viper Venom Time Confirm 34.9(A) 25.1 - 30.2 secs 07/16/2020 14:15 EDT [facility] LA Ratio 1.04 <=1.16 07/16/2020 14:15 EDT [facility] Comment: Test [place] [id number] 07/08/2020 12:4 0 EDT 07/08/2020 12:40 EDT Linnette Gonsales MD PhD HEMATOLOGY & PF4 ORDERAB LES Final Result Performing Organization Address [facility] Co de Phone Number [facility] [address] [place] [address] * PROTEIN S ACTIVITY (07/08/2020 12:40 EDT) [facility] PROTEIN S - [facility] 127 64 - 147 % 07/16/20 14:15 EDT [facility] Comment: a.Acquired Protein S deficiencies are associated [...] may affect the normal range for females. Test [place] [address] 07/08/2020 12:4 0 EDT 07/08/2020 12:40 EDT us Linnette Gonsales MD PhD HEMATOLOGY & PF4 ORDERAB LES Edited Result - Final Performing Organization Address [facility]/ZIP Co de Phone Number [facility] [address] [place] [address] * PROTEIN C ACTIVITY (07/08/2020 12:40 EDT) Pathologist [facility] Protein C Clot 147 71 - 199 % 07/16/2020 14:15 EDT [facility] Comment: a. Acquired Protein C deficiencies are [...] be interpreted with caution in this setting. [place] [address] 07/08/2020 12:4 0 EDT 07/08/2020 12:40 EDT Linnette Gonsales MD PhD HEMATOLOGY & PF4 ORDERAB LES Edited Result - Final [facility] [address] [place] [address] * LUPUS ANTICOAGULANT CASCADE (07/08/2020 12:40 EDT) [facility] Dilute Viper Venom 40.1 sec 2019 8:31 EDT [facility] Comment:ref value 27.2-36.9 [place] Summary See Note 2019 8:31 EDT [facility] Comment: LA [place] Summary Result: Indeterminate for Lupus Anticoagulant (LA); a LA cannot be excluded. Where clinical suspicion for antiphospholipid syndrome is high, it may be appropriate to perform alternative testing. Specific factor inhibitors should be ruled out, if clinically indicated. Result: The laboratory criteria for Antiphospholipid Syndrome (aPS) include positive testing for one of the following on 2 or more occasions, at least 12 weeks apart: 1) Lupus anticoagulant, Result: 2) Cardiolipin antibodies (IgG or IgM) in medium or high titer, Result: 3) Hchm-7-vducxbreydwd 1 antibodies (IgG or IgM) in medium or leilani titer. Result: Solid phase assays for Lrmj-0-rxjfmcmfqykw 1 (B2GP1) and Cardiolipin antibodies are also recommended. Correlation with those results is advised. Result: Should this patient require treatment with unfractionated heparin, monitor via the anti-Xa methodology as the aPTT may provide inaccurate therapeutic levels. Result: Based on the pattern of results, specific factor inhibitors (particularly to the intrinsic pathway) should be ruled out, if clinically indicated. Result: There was significant resident/fellow involvement in the diagnostic evaluation of this case. By the signature below, the attending physician certifies that they have reviewed the results of laboratory testing from the described specimen(s) and personally confirmed [place] [address] Silica Clotting Time 49.7 sec 06/26 8:31 EDT [facility] Comment:ref value 30.2-48.4 07/08/2020 12:4 0 EDT 07/08/2020 12:40 EDT us Linnette Gonsales MD PhD HEMATOLOGY & PF4 ORDERAB LES Final Result Performing Organization Address [facility] Co de Phone Number [facility] [address] [place] [address] * (ABNORMAL) COAGULATION FACTOR VIII - [facility] (07/08/2020 12:40 EDT) [facility] COAGULATION FACTOR VIII [facility] 215(H) 50 - 150 % 07/16/2020 14:15 EDT [facility] Comment: [place] [id number] 07/08/2020 12:4 0 EDT 07/08/2020 12:40 EDT us Linnette Gonsales MD PhD CHEMISTRY & BLOOD GAS OR DERABLES Edited Result - Final Performing Organization Address [facility]/ZIP Co de Phone Number [facility] [address] [place] [address] * BETA 2 GLYCOPROTEIN ANTIBODY PANEL (07/08/2020 12:40 EDT) [facility] BETA-2 GLYCOPROTEIN I AB IGG - [facility] <9.4 () U/mL [facility]16[facility]2020 [facility]: REFERENCE VALUE <15.0 (Negative) BETA-2 GLYCOPROTEIN I AB IGM - [facility] <9.4 () U/mL 07/16/2020 14:15 EDT [facility] Comment: REFERENCE VALUE <15.0 (Negative) Test Performed by: [place] [address] Chip Silo Tender: Kain Shay M.D. Ph.D.; CLIA# [id number] 07/08/2020 12:4 0 EDT 07/08/2020 12:40 EDT Linnette Gonsales MD PhD IMMUNOLOGY AND SEROLOGY ORDERABLES Final Result [facility] [address] [place] [address] * (ABNORMAL) ANTITHROMBIN III ANTIGEN - [facility] (07/08/2020 12:40 EDT) [facility] ANTITHROMBIN III ANTIGEN - [facility] 129(H) 85 - 125 % 07/16/2020 14:15 EDT [facility] Comment: Results may be overestimated in the presence of DOACs such as apixaban, edoxaban, and rivaroxaban, direct thrombin inhibitors such as dabigatran, Hirudin (Refludan) and Argatroban (Novastan). Acute illness and/or thrombosis may influence test results in an unpredictable manner, therefore results should be interpreted with caution in this setting. Test [place] [id number] 07/08/2020 12:4 0 EDT 07/08/2020 12:40 EDT Linnette Gonsales MD PhD CHEMISTRY & BLOOD GAS OR DERABLES Edited Result - Final Performing Organization Address [facility] Co de Phone Number [facility] [address] [place] [address] * APC RESISTANCE 5 (07/08/2020 12:40 EDT) APCR V RATIO - [facility] 3.0 >or=2.3 07/16/2020 14:15 EDT [facility] INTERPRETATION - [facility] SEE BELOW () 07/16/2020 14:15 EDT [facility] Comment: No evidence of resistance to Activated Protein C (APC). Normal result of APC resistance (APCRV) assay virtually excludes the patient as a carrier for the factor V Leiden mutation. ??Thus DNA based testing for factor V Leiden mutation is not indicated. Note: ??The APCRV assay has greater than 99% sensitivity for detecting presence of factor V Leiden mutation. ??Discrepant results of plasma based activated protein C resistance ratio (APCRV) and DNA based factor V Leiden testing may occur in recipients of liver or allogeneic hematopoietic stem cell transplants, or due to anticoagulant effects such as excess heparin, direct thrombin inhibitors argatroban (Acova), bivalirudin (Angiomax) or dabigatran (Pradaxa) or direct factor Xa inhibitors rivaroxaban (Xarelto), apixaban (Eliquis) and edoxaban (Savaysa) or a sample mix up. ?? Suggest clinical correlation. Test Performed by: [place] [address] Chip Silo Tender: Kain Shay M.D. Ph.D.; CLIA# [id number] 07/08/2020 12:4 0 EDT 07/08/2020 12:40 EDT Linnette Gonsales MD PhD HEMATOLOGY & PF4 ORDERAB LES Final Result Performing Organization Address [facility]/ZIP Co de Phone Number [facility] [address] [place] [address] * PHOSPHOLIPID ANTIBODY (07/08/2020 12:40 EDT) [facility] PHOSPHOLIPID AB.IGG <9.4 () GPL 07/16/2020 14:15 EDT [facility] Comment: REFERENCE VALUE <15.0 (Negative) Test Performed by: [facility] [address] [place] [address] Chip Silo Tender: Kain Shay M.D. Ph.D.; CLIA# [id number] PHOSPHOLIPID AB.IGM 11.9 () MPL 07/16/2020 14:15 EDT [facility] Comment: REFERENCE VALUE <15.0 (Negative) 07/08/2020 12:4 0 EDT 07/08/2020 12:40 EDT Linnette Gonsales MD PhD IMMUNOLOGY AND SEROLOGY ORDERABLES Final Result Performing Organization Address [facility]/ZIP Co de Phone Number [facility] [address] [place] [address] * PROTIME (07/08/2020 12:40 EDT) [facility] PROTHROMBIN TIME [facility] 12.8 10.3 - 13.4 SECONDS 07/11/2020 12:25 EDT [facility] 07/08/2020 12:4 0 EDT 07/08/2020 12:40 EDT Linnette Gonsales MD PhD HEMATOLOGY & PF4 ORDERAB LES Final Result Performing Organization Address [facility] Co de Phone Number [facility] [address] [place] [address] * INR [facility] (07/08/2020 12:40 EDT) [facility] INR [facility] 1.1 0.9 - 1.1 07/11/2020 12:25 EDT [facility] Comment: Moderate Intensity Coumadin INR = 2.0-3.0 Adjustments in anticoagulant therapy dose should be based upon the INR and NOT the Protime. 07/08/2020 12:4 0 EDT 07/08/2020 12:40 EDT us Linnette Gonsales MD PhD HEMATOLOGY & PF4 ORDERAB LES Final Result [facility] [address] [place] [address] documented in this encounter Visit Diagnoses Not on filedocumented in this encounter Care Teams Card Grader Relationship Specialty Start Date End Date Romario Hairston MD [address] [place] [address] PCP - General 07/06/20 documented as of this encounter
--- OUTSIDE RECORDS SUMMARY | 2024-12-03 16:00 | XMS_ITS | Encounter Summary ---
Author Organization [facility] Address [address] [place] [address] Care Team Providers Care Line Staker Name Role Phone Romario Hairston MD Primary Care Provider +1- [phone] Encounter Details Date Type Department Care Team (Late st Contact Info) Description 07/08/2020 Lab Requisition [facility] Pathology & Laboratory Medicine - [address] [address] Outr Resulting Lab, Provider Social History Tobacco [...] Description 03/04/2025 14:00 EDT Telemedicine [facility] [address] [place] [phone] Brayan Polk MD [address] [place] [address]- [address] [place] [address] 07/14/2025 14:30 EDT Office Visit [facility] Cancer Center Hematology & Oncology - [address] [address] Evin Maria MD [address] [place] [address], [address] [place] [address] documented as of this encounter Procedures Procedure Name Priority Date/Time Associated Diagnosis Comments DO NOT ORDER STANDALONE - [facility] COVID TEST Today 07/08/2020 10:05 EDT COVID-19 TESTING Routine 07/08/2020 10:0 5 EDT documented in this encounter Results * DO NOT ORDER STANDALONE - [facility] TEST (07/08/2020 10:05 EDT) COVID-19 rt-PCR Result NEGATIVE Negative 07/09/2020 16:45 EDT [facility] Comment: 2019-novel Coronavirus (2019-nCoV) not detected by the qRT-PCR assay. Consider testing for other respiratory viruses or re-collecting for 2019-nCoV testing. Note: Optimum timing for peak viral levels during infections caused by 2019-nCoV have not been determined. Collection of multiple specimens from the same patient may be necessary to detect the virus. Limitations Positive results are indicative of active infection with SARS-CoV-2 but do not rule out bacterial infection or co-infection with other viruses. The agent detected may not be the definite cause of disease. In addition, detection of viral RNA may not indicate the presence of infectious virus or that SARS-CoV-2 is the causative agent for clinical symptoms. Negative results do not preclude SARS-CoV-2 infection and should not be used as the sole basis for patient management decisions. Negative results must be combined with clinical observations, patient history, and epidemiological information. False negative results may also occur if amplification inhibitors are present in the specimen or if inadequate numbers of organisms are present in the specimen. Optimum specimen types and timing for peak viral levels during infections caused by SARS-CoV-2 have not been fully determined. Collection of multiple specimens (types and time points) from the same patient may be necessary to detect the virus. The test was validated for use with upper respiratory specimens obtained via nasopharyngeal or oropharyngeal swabs in VTM, UTM, M4, M5, M6, saline, and MTM media. The performance of this test has not been established for other specimens. Specimens collected using other FDA recommended Specimen Collection Materials listed in the FDA COVID-19 [employer] communication (February 18, 2020) are processed with the caveat that they were not all validated for use with this test and the result must be interpreted in this context. Furthermore, a false negative results may occur if a specimen is improperly collected, transported or handled. If the virus mutates in the RT-PCR target region, SARS-CoV-2 may not be detected or may be detected less predictably. Inhibitors or other types of interference may produce a false negative result. An interference study evaluating the effect of common cold medications was not performed. This test is not FDA-cleared but its performance characteristics were established by our CLIA-certified, CAP-accredited, high complexity laboratory in accordance with CLIA regulations, [employer] (CAP) guidelines (Feb 11, 2020), and FDA guidance (Jan 23, 2020). This test is only for use under the Food and Drug Administration's Emergency Use Authorization. Swab ENTIRE NASOPHARYNX / Unknown 07/08/2020 10:05 EDT 07/08/2020 22:50 EDT us Provider Outr Resulting Lab MICROBIOLOGY - GENER AL ORDERABLES Final Result [facility] [place], [place] * COVID-19 TESTING (07/08/2020 10:05 EDT) COVID-19 rt-PCR Result NEGATIVE Negative 07/09/2020 17:53 EDT [facility] Comment: 2019-novel Coronavirus (2019-nCoV) not detected by the qRT-PCR assay. Consider testing for other respiratory viruses or re-collecting for 2019-nCoV testing. Note: Optimum timing for peak viral levels during infections caused by 2019-nCoV have not been determined. Collection of multiple specimens from the same patient may be necessary to detect the virus. Limitations Positive results are indicative of active infection with SARS-CoV-2 but do not rule out bacterial infection or co-infection with other viruses. The agent detected may not be the definite cause of disease. In addition, detection of viral RNA may not indicate the presence of infectious virus or that SARS-CoV-2 is the causative agent for clinical symptoms. Negative results do not preclude SARS-CoV-2 infection and should not be used as the sole basis for patient management decisions. Negative results must be combined with clinical observations, patient history, and epidemiological information. False negative results may also occur if amplification inhibitors are present in the specimen or if inadequate numbers of organisms are present in the specimen. Optimum specimen types and timing for peak viral levels during infections caused by SARS-CoV-2 have not been fully determined. Collection of multiple specimens (types and time points) from the same patient may be necessary to detect the virus. The test was validated for use with upper respiratory specimens obtained via nasopharyngeal or oropharyngeal swabs in VTM, UTM, M4, M5, M6, saline, and MTM media. The performance of this test has not been established for other specimens. Specimens collected using other FDA recommended Specimen Collection Materials listed in the FDA COVID-19 [employer] communication (February 18, 2020) are processed with the caveat that they were not all validated for use with this test and the result must be interpreted in this context. Furthermore, a false negative results may occur if a specimen is improperly collected, transported or handled. If the virus mutates in the RT-PCR target region, SARS-CoV-2 may not be detected or may be detected less predictably. Inhibitors or other types of interference may produce a false negative result. An interference study evaluating the effect of common cold medications was not performed. This test is not FDA-cleared but its performance characteristics were established by our CLIA-certified, CAP-accredited, high complexity laboratory in accordance with CLIA regulations, [employer] (CAP) guidelines (Feb 11, 2020), and FDA guidance (Jan 23, 2020). This test is only for use under the Food and Drug Administration's Emergency Use Authorization. Performing Lab [facility] [place] 07/09/2020 17:53 EDT [facility] Swab 07/08/2020 10:0 5 EDT 07/08/2020 22:50 EDT us Provider Outr Resulting Lab MICROBIOLOGY - GENER AL ORDERABLES Final Result [facility] [address] [place] [address] [facility] [place] documented in this encounter Visit Diagnoses Not on filedocumented in this encounter Additional Health Concerns Infection Onset Date Last Indicated Resolved Time R/O COVID-19 Comment:Negative result 03/07/2022 03/07/2022 03/07/2022 9:37 EDT R/O COVID-19 01/28/2024 01/28/2024 01/29/2024 0:27 EST documented as of this encounter Care Teams Line Staker Relationship Specialty Start Date End Date Romario Hairston MD [address], [address] [place] [address] PCP - General 07/06/20 documented as of this encounter
--- OUTSIDE RECORDS SUMMARY | 2024-12-03 16:00 | XMS_ITS | Encounter Summary ---
Author Organization [facility] Address [address] [place] [address] Care Team Providers Care Match Up Person Name Role Phone Romario Hairston MD Primary Care Provider +1- [phone] Reason for Visit * Reason Onset Date Comments Medication Questions 07/11/2020 Discuss Surgery 07/11/2020 Encounter Details Date Type Department Care Team (Late st Contact Info) Description 07/11/2020 Telephone [facility] Neurosurgery - [address] [address] Claus Piña MD [address] [place] [address], [address] [place] [address] Medication Questions ; Discuss Surgery Social History Tobacco Use Types Packs/Day Years [...] No 03/02/2020 16:00 Julissa Phillip RN * Are you blind or do you have serious difficulty seeing, even when wearing glasses? Answer Date of Assessment Author No 03/02/2020 16:00 Julissa Phillip RN * Do you have serious difficulty [...] Julissa Phillip RN documented in this encounter Miscellaneous Notes * Telephone Encounter - Cathryn Hill - 07/11/2020 1538 EDT Confirmed the following surgery details with the patient: Surgery time: 1:00pm Arrival time: 11am Instructions were given to have nothing to eat after midnight/clear liquids up to 3 hours prior to the surgery time. * Telephone Encounter - Cathryn Hill - 07/11/2020 1124 EDT Spoke with the lab to get PTINR results. They stated they will put them through as STAT. They will be included in the thrombosis panel. * Telephone Encounter - Tayler Vallejo RN - 07/11/2020 1057 EDT Spoke with Ever and the patient who were advised that if the patient is normally able to take Tylenol then it is fine for her to take it prior to surgery. Ever also asked if the CT scan is similar to Valorie in length of time as equipment used. I reviewed with Ever and Chavo the differences between the CT scan and MRI. They verbalized understanding and denied any other questions at this time. * Telephone Encounter - Magalie Yip - 07/11/2020 1051 EDT Ever is calling wanting to know if Ynes can have tylenol the am of surgery. documented in this encounter Plan of Treatment Upcoming Encounters Date Type Department Care Team (Late st Contact Info) Description 03/04/2025 14:00 EDT Telemedicine [facility] Neurology Clinic [address] [place] [phone] Brayan Polk MD [address] [place] [address] [place] [phone] 07/14/2025 14:30 EDT Office Visit [facility] Cancer Center Hematology & Oncology - [address] [phone] Evin Maria MD [address] [facility], [facility], [address] [place] [address] documented as of this encounter Visit Diagnoses Not on filedocumented in this encounter Care Teams Match Up Person Relationship Specialty Start Date End Date Romario Hairston MD [address], [address] [id number] PCP - General 07/06/20 documented as of this encounter
--- OUTSIDE RECORDS SUMMARY | 2024-12-03 16:00 | XMS_ITS | Encounter Summary ---
Author Organization [facility] Address [address] [place] [address] Care Team Providers Care Payroll Tax Analyst Name Role Phone Romario Hairston MD Primary Care Provider +1- [phone] Encounter Details Date Type Department Care Team (Latest Contact Info) Description 07/07/2020 Travel Social History Tobacco Use Types Packs/Day [...] 14:00 EDT Telemedicine [facility] Neu[facility] Clinic [address] [place], [place] [id number] Brayan Polk MD 130 [facility] [address] [place] [phone] 07/14/2025 14:30 EDT Office Visit [facility] Cancer Center Hematology & Oncology - [address] [id number] Evin Maria MD 111 [facility], [address] [place] [address] documented as of this encounter Visit Diagnoses Not on filedocumented in this encounter Care Teams Payroll Tax Analyst Relationship Specialty Start Date End Date Romario Hairston MD [facility] [address] [place], [place] [address] PCP - General 07/06/20 documented as of this encounter
--- OUTSIDE RECORDS SUMMARY | 2024-12-03 16:00 | XMS_ITS | Encounter Summary ---
Author Organization [facility] Address [address] [place] [address] Care Team Providers Care Actor Understudy Name Role Phone Romario Hairston MD Primary Care Provider +1- [phone] Reason for Visit * Reason Onset Date Comments Discuss Surgery 07/07/2020 Encounter Details Date Type Department Care Team (Late st Contact Info) Description 07/07/2020 Telephone [facility] Neurosurgery - [facility] [place] [address] [place] [address] Karen Haley RN Discuss Surgery Social History Tobacco Use Types [...] encounter Miscellaneous Notes * Telephone Encounter - Karen Haley RN - 07/08/2020 1654 EDT Spoke with Ever and advised the patient may not undergo a shoulder injection prior to procedure. Hematology orders confirmed by Adali Garza RN. The patient/caregiver Ever was instructed to take no lovenox on the day prior to procedure. * Telephone Encounter - Karen Haley RN - 07/07/2020 1118 EDT Preoperative instructions reviewed with Ever. Instructions for NPO, bathing, Covid testing and medications were reviewed. Ever will check with Hematology regarding a plan. He verbalized understanding of all instructions. documented in this encounter Plan of Treatment Upcoming Encounters Date Type Department Care Team (Late st Contact Info) Description 03/04/2025 14:00 EDT Telemedicine [facility] [place] [facility] [address] [place] [address] Brayan Polk MD 130 [facility] [address] [place] [address] 07/14/2025 14:30 EDT Office Visit [facility] Cancer Center Hematology & Oncology - [facility] [address] [place], [place] [address] Evin Maria MD 111 [facility], [address] [place] [address] documented as of this encounter Visit Diagnoses Not on filedocumented in this encounter Care Teams Actor Understudy Relationship Specialty Start Date End Date Romario Hairston MD [facility], [address] [id number] PCP - General 07/06/20 documented as of this encounter
--- OUTSIDE RECORDS SUMMARY | 2024-12-03 16:00 | XMS_ITS | Encounter Summary ---
Author Organization [facility] Address [address] [place] [address] Care Team Providers Care Bench Carpenter Name Role Phone Romario Hairston MD Primary Care Provider +1- [phone] Encounter Details Date Type Department Care Team (Late st Contact Info) Description 07/08/2020 Results Only [facility] Neurosurgery - [address] [address] Claus Piña MD [address] [place] [address], [address] [place] [address] Social History Tobacco Use Types [...] Info) Description 03/04/2025 14:00 EDT Telemedicine [facility] Neurology Clinic [address] [place] [address] Brayan Polk MD [address] [place] [address] [place] [phone] 07/14/2025 14:30 EDT Office Visit [facility] Cancer Center Hematology & Oncology - [address] [phone] Evin Maria MD [address] [place] [address], [address] [place] [address] documented as of this encounter Procedures Procedure Name Priority Date/Time Associated Diagnosis Comments COVID-19 TESTING Routine 07/08/2020 10:0 5 EDT documented in this encounter Results * COVID-19 TESTING (07/08/2020 10:05 EDT) Performing Lab [facility] 07/09/2020 18:25 EDT [facility] Comment: Please indicate the Triage Tier2 Test performed or referred by The [address] [address] COVID-19 rt-PCR Result Not Detected Negative 07/09/2020 18:25 EDT [facility] Comment: 2019-novel Coronavirus (2019-nCoV) not detected by [...] in accordance with CLIA regulations, [employer] [place] [employer] (CAP) guidelines (Feb 11, 2020), and FDA guidance (Jan 23, 2020). This test is only for use under the Food and Drug Administration's Emergency Use Authorization. 07/08/2020 10:0 5 EDT 07/08/2020 12:39 EDT Narrative [facility] - 07/09/2020 18:25 EDT pre procedure ??07/12 us Claus Piña MD MICROBIOLOGY - GENERAL ORDERABLE S Final Result [facility] [address] [place] [address] documented in this encounter Visit Diagnoses Not on filedocumented in this encounter Care Teams Bench Carpenter Relationship Specialty Start Date End Date Romario Hairston MD [address], [address] [address] PCP - General 07/06/20 documented as of this encounter
--- OUTSIDE RECORDS SUMMARY | 2024-12-03 16:00 | XMS_ITS | Encounter Summary ---
Author Organization [facility] Address [address] [place] [address] Care Team Providers Care Dehydrogenation Converter Helper Name Role Phone Romario Hairston MD Primary Care Provider +1- [phone] Reason for Visit * Reason Comments Other Pre-procedure COVID screening Encounter Details Date Type Department Care Team (Late st Contact Info) Description 07/08/2020 10:00 EDT Nurse Only [facility] Testing Department [address] [place] [address] Nurse, [facility] Mobile Testing Screening for viral disease (Primary Dx) Social History Tobacco Use Types [...] Taken Comments Blood Pressure - - Pulse 100 07/08/2020 1008 EDT Temperature - - Respiratory Rate - - Oxygen Saturation 97% 07/08/2020 1008 EDT Inhaled Oxygen Concentration - - Weight [...] Julissa Phillip RN documented in this encounter Progress Notes * Jacinta Morelos - 07/08/2020 1000 EDT Pre-procedure COVID screening documented in this encounter Plan of Treatment Upcoming Encounters Date Type Department Care Team (Late st Contact Info) Description 03/04/2025 14:00 EDT Telemedicine [facility] Neurology Clinic [address] [place] [id number] Brayan Polk MD [address] [place] [address]-[address] [place] [address] 07/14/2025 14:30 EDT Office Visit [facility] Cancer Center Hematology & Oncology - [address] [phone] Evin Maria MD [address] [place] [address], [facility], [address] [place] [phone] documented as of this encounter Procedures Procedure Name Priority Date/Time Associated Diagnosis Comments XR CHEST 2 VIEWS 07/08/2020 15:3 6 EDT documented in this encounter Results * XR CHEST 2 VIEWS (07/08/2020 15:36 EDT) Anatomical Region Laterality Modality Computed Radiogr aphy 07/08/2020 15:3 3 EDT Narrative 07/08/2020 15:36 EDT ? EXAM: RADIOLOGY/CHEST PA ?? LAT ?EX. D/ (1327) ? CLINICAL INFORMATION: ? Z01.818 PRE-OP EXAM ? H/O TOBACCO USE ? INDICATION: Z01.818 PRE-OP EXAM, H/O TOBACCO USE . ? COMPARISON: Chest x-ray 12/11/2018. ? TECHNIQUE: 2 views of the chest were obtained. ? FINDINGS: ? There is a focal nodular opacity measuring 10 mm within the left ? lateral lower lobe. This is new compared to the previous examination. ? Further evaluation with CT scan of the chest is recommended. The ? lungs are otherwise clear. The cardiomediastinal silhouette and ? pulmonary vasculature are within normal limits. No acute bone or ? joint abnormality is seen. ? IMPRESSION: ? Left lower lobe nodular opacity measuring 10 mm raising the concern ? for a pulmonary nodule. Further evaluation with CT scan of the chest ? is recommended. ? This report has been flagged for a noncritical result requiring ? follow-up on the myMedScore PACS findings application, to be tracked by ? the [facility] tracking system. ? REPORT SIGNED IN OTHER VENDOR SYSTEM 07/08/2020 ?Reported By: Iron Romero MD ? CC: ? Transcribed Date/Time: 07/08/2020 (7286) ? Material Mover: ? Printed Date/Time: 07/08/2020 (3016) ? PAGE 1 ? Signed Report ? Procedure Note Iron Romero MD - 07/08/2020 EXAM: RADIOLOGY/CHEST PA LAT EX. D/ (1327) CLINICAL INFORMATION: Z01.818 PRE-OP EXAM H/O TOBACCO USE INDICATION: Z01.818 PRE-OP EXAM, H/O TOBACCO USE . COMPARISON: Chest x-ray 12/11/2018. TECHNIQUE: 2 views of the chest were obtained. FINDINGS: There is a focal nodular opacity measuring 10 mm within the left lateral lower lobe. This is new compared to the previousexamination. Further evaluation with CT scan of the chest is recommended. The lungs are otherwise clear. The cardiomediastinal silhouette and pulmonary vasculature are within normal limits. No acute bone or joint abnormality is seen. IMPRESSION: Left lower lobe nodular opacity measuring 10 mm raising the concern for a pulmonary nodule. Further evaluation with CT scan of thechest is recommended. This report has been flagged for a noncritical result requiring follow-up on the myMedScore PACS findings application, to be tracked by the [facility] tracking system. REPORT SIGNED IN OTHER VENDOR SYSTEM 07/08/2020 Reported By: Iron Roemro MD CC: Transcribed Date/Time: 07/08/2020 (3896) Material Mover: Printed Date/Time: 07/08/2020 (1536) PAGE 1 Signed Report us Provider Unknown MD [facility] Final Result documented in this encounter Visit Diagnoses Diagnosis Screening for viral disease- Primary Special screening examination for unspecified viral disease documented in this encounter Care Teams Dehydrogenation Converter Helper Relationship Specialty Start Date End Date Romario Hairston MD [address] [place] [address] PCP - General 07/06/20 documented as of this encounter
--- OUTSIDE RECORDS SUMMARY | 2024-12-03 16:00 | XMS_ITS | Encounter Summary ---
Author Organization [facility] Address [address] [place] [address] Care Team Providers Care Molder Bench Name Role Phone Romario Hairston MD Primary Care Provider +1- [phone] Encounter Details Date Type Department Care Team (Latest Contact Info) Description 07/06/2020 Travel Social History Tobacco Use Types Packs/Day [...] Assessment Author Yes 04/27/2020 11:05 EDT Julissa Nunze RN documented as of this encounter Mental Status * Because of a physical, mental, or emotional condition, does this person have serious difficulty concentrating, remembering, or making decisions? Answer Entry Date Author Yes 04/27/2020 11:05 EDT Julissa Nunez RN documented in this encounter Plan of Treatment Upcoming Encounters Date Type Department Care Team (Late st Contact Info) Description 03/04/2025 14:00 EDT Telemedicine [facility] Neu[facility] Clinic [address] [place], [place] [address] Brayan Polk MD 130 [facility] [address] [place] [phone] 07/14/2025 14:30 EDT Office Visit [facility] Cancer Center Hematology & Oncology - [address] [phone] Evin Maria MD 111 [facility], [address] [place] [address] documented as of this encounter Visit Diagnoses Not on filedocumented in this encounter Care Teams Molder Bench Relationship Specialty Start Date End Date Romario Hairston MD [facility] [address] [place], [place] [address] PCP - General 07/06/20 documented as of this encounter
--- OUTSIDE RECORDS SUMMARY | 2024-12-03 16:00 | XMS_ITS | Encounter Summary ---
Author Organization [facility] Address [address] [place] [address] Care Team Providers Care Pulp Piler Name Role Phone Romario Hairston MD Primary Care Provider +1- [phone] Reason for Visit * Reason Onset Date Comments Discuss Surgery 07/06/2020 Encounter Details Date Type Department Care Team (Late st Contact Info) Description 07/06/2020 Telephone [facility] Neurosurgery - [address] [address] Claus Piña MD [address] [place] [address], [address] [place] [address] Discuss Surgery Social History Tobacco Use Types [...] Telephone Encounter - Karen Haley RN - 07/11/2020 0906 EDT Lovenox instructions were given on 07/08. * Telephone Encounter - Magalie Yip - 07/08/2020 1639 EDT Ever called wanting to know if there was a plan for the Lovenox yet. I advised him that we can try to reach out to hematology. He also stated that Ynes is scheduled for a cortisone injection for her shoulder at [place] on Saturday. I told him that I believe she should not be having that injection. Our nurse will give him a call back to discuss. * Telephone Encounter - Cathryn Hill - 07/08/2020 1128 EDT Spoke with Ever and let him know I have cancelled Ynes's CT at [facility] for 07/11 and that she will get it done as a pre-op scan day of surgery. I informed him also to speak with for guidance with her hematology medications. * Telephone Encounter - Dionna Toledo - 07/08/2020 0931 EDT Ever called to follow up on the CT that was ordered to be done at [facility]. Notified him of the following date/time. Per Ever, they plan to go to [facility] to have Ynes's preop labs drawn. He also had a few questions about the arrival/surgery time. He can be reached at [phone]. 07/11/20 - [facility] Check in at 6:15am CT at 6:30am * Telephone Encounter - Dionna Toledo - 07/06/2020 1400 EDT Eneida from [facility] Radiology called to inquire if pre-auth was obtained for the CT order that was faxed to them today. Reviewed chart and discussed that the order was entered today and our pre-auth department is working on getting authorization. Per Eneida, she'll place the order in a pending status and requested that our office call her back with authorization so it can be scheduled. Eneida can be reached at [phone]. * Telephone Encounter - Cathryn Hill - 07/06/2020 1243 EDT Spoke with patient and Ever her EC and made a plan for 07/12 surgery. I informed them they will need to call her PCP for a H&P. Patient will also be going to [facility] to get a CT, bloodwork, and chest xray. I stated that a covid nurse would call them to schedule the Covid test for 4 days before surgery.Patient will also need to hold enoxaparin the day prior to surgery and should call with d ate of surgery for direction. documented in this encounter Plan of Treatment Upcoming Encounters Date Type Department Care Team (Late st Contact Info) Description 03/04/2025 14:00 EDT Telemedicine [facility] Neurology Clinic [address] [place], [place] [address] Brayan Polk MD 130 [facility] [address] [place] [address] 07/14/2025 14:30 EDT Office Visit [facility] Cancer Center Hematology & Oncology - [address] [id number] Evin Maria MD 111 [facility], [address] [place] [address] documented as of this encounter Visit Diagnoses Diagnosis Preoperative testing- Primary Preoperative examination, unspecified documented in this encounter Care Teams Pulp Piler Relationship Specialty Start Date End Date Romario Hairston MD [address] [place], [place] [address] PCP - General 07/06/20 documented as of this encounter
--- OUTSIDE RECORDS SUMMARY | 2024-12-03 16:01 | XMS_ITS | Encounter Summary ---
Author Organization [facility] Address [address] [place] [address] Care Team Providers Care Fabrication Supervisor Name Role Phone Alejandrina Carrillo PA-C Primary Care Provider +1- [phone] Reason for Visit * Reason Comments Wound Check Encounter Details Date Type Department Care Team (Late st Contact Info) Description 05/11/2020 9:10 EDT Office Visit [facility] Neurosurgery - [address] [address] Claus Piña MD [address] [place] [address], [address] [place] [address] Cerebral edema (HCC-CMS) (Primary Dx) Social History Tobacco Use Types Packs/Day Years Used Date Smoking Tobacco: Former Cigarettes 0.3 15 Smokeless Tobacco: Never Alcohol Use Standard Drinks/Week Comments Yes 0 (1 standard drink = 0.6 oz pur e alcohol) Comments Unknown Sex and Gender Information Value Date Recorded Sex Assigned at Not on file Legal Sex Female 17:42 EST Gender Identity Female 03/18/2020 17:54 EDT Sexual Orientation Not on file COVID-19 Exposure Response Date Recorded In the last month, have you been in contact with someone who was confirmed or suspected to have Coronavirus / COVID-19? No / Unsure 04/27/2020 10:57 EDT documented as of this encounter Last Filed Vital Signs Vital Sign Reading Time Taken Comments Blood Pressure - - Pulse - - Temperature - - Respiratory Rate - - Oxygen Saturation - - Inhaled Oxygen Concentration - - Weight 78.5 kg (173 lb) 05/11/2020 0906 EDT Height 170.2 cm (5' 7) 05/11/2020 0906 EDT Body Mass Index 27.1 05/11/2020 0906 EDT documented in this encounter Functional Status [...] Progress Notes * Claus Piña MD - 05/11/2020 0910 EDT Images from the original note were not included. DIVISION OF NEUROSURGERY OUTPATIENT PROGRESS NOTE Chief complaint / Neurosurgical problem: Chief Complaint Patient presents with ??? Wound Check Encounter Diagnoses Name Primary? Cerebral edema ([facility]) Yes Patient Active Problem List Diagnosis Date Noted ??? 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) 02/17/2020 Priority: Medium ??? Cerebral edema ([facility]) 02/17/2020 Priority: Medium ??? 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 Cerebral venous thrombosis 02/14/2020 Priority: Medium ??? Encounter for insertion or removal of intrauterine contraceptive device 02/12/2020 Priority: Medium ??? Nicotine dependence, unspecified, uncomplicated 02/12/2020 Priority: Medium ??? Perimenopausal 02/12/2020 Priority: Medium ??? Post concussion syndrome 02/12/2020 Priority: Medium ??? Tobacco abuse 12/02/2012 Priority: Medium ??? Chronic low back pain 10/13/2012 Priority: Medium ??? Back pain 09/25/2012 Priority: Medium ??? Primary hypercoagulable state ([facility]) 03/23/2020 Class: Permanent Thrombosis Events A. 11/17/2019: Right greater saphenous [...] issue. Treatment and prevention A. Will need [facility] anticoagulation - agent TBD ??? Left-sided nontraumatic intracerebral hemorrhage ([facility]) 03/02/2020 Status post decompressive hemicraniectomy Primary Provider: Alejandrina Carrillo Referring Provider: Alejandrina Carrillo 02/16/2020 ??Left frontal, temporal and parietal craniectomy, [...] ultimately an enlarging left pupil. Ynes White return to the office today for a wound check. I had seen her recently status post craniectomy for hematoma and venous infarction as described above, nearly 3 months ago. When I saw her on 04/27/2020, there was still significant scabbing of the wound. She was given instructions regarding wound care. She continues on anticoagulation under the direction of hematology. Her primary caregiver is with her here today who I believe is Ever. He reports that she does not vigorously wash her hair. They have been using Betadine on the wound. On exam, there is still significant scabbing posteriorly. The wound does look healthy and noninfected but I do not believe that it is ready for a cranioplasty as yet. We have given them more Betadineswabs and I directed her to try to wash her hair with shampoo. We will have her check back with us in another few weeks to see if we can begin planning a cranioplasty based on a CT scan which we will do. A total of 10 minutes was spent in [id number] time of which 10 minutes were spent in counseling and coordination of care as described above, including discussion of treatment options regarding this serious medical problem. Claus Piña MD FACS FAANS Professor, Neurological Surgery CC: Alejandrina Painting documented in this encounter Plan of Treatment Upcoming Encounters Date Type Department Care Team (Late st Contact Info) Description 03/04/2025 14:00 EDT Telemedicine [facility] Neurology Clinic [address] [place] [address] Brayan Polk MD [address] [place] [address] [address] [place] [address] 07/14/2025 14:30 EDT Office Visit [facility] Cancer Center Hematology & Oncology - [address] [phone] Evin Maria MD 111 [facility], [address] [place] [address] documented as of this encounter Visit Diagnoses Diagnosis Cerebral edema (HCC-CMS)- Primary Cerebral edema documented in this encounter Care Teams Fabrication Supervisor Relationship Specialty Start Date End Date Alejandrina Carrillo PA-C [address] [place] [address] PCP - General 04/07/19 07/05/20 documented as of this encounter
--- OUTSIDE RECORDS SUMMARY | 2024-12-03 16:01 | XMS_ITS | Encounter Summary ---
Author Organization [facility] Address [address] [place] [address] Care Team Providers Care Photovoltaic Solar Cell Designer Name Role Phone Alejandrina Carrillo PA-C Primary Care Provider +1- [phone] Reason for Visit * (Routine) - Receiving Office to Obtain Authorization Specialty Diagnoses / Procedures Referred By Mitch pruett Referred To Contact Procedures CT OUTSIDE IMAGES NEURO Unknown, Provider, MD Referral ID Status Reason Start Date Expiration Date Visits Requested Visits Authorized [id number] Receiving Office to Obtain Authorization 07/08/2020 1 1 Encounter Details Date Type Department Care Team (Latest Contact Info) Description 04/13/2020 - 04/13/2020 23:59 EDT Hospital Encounter [facility] Radiology - Main [place] [address] [place] [address] Discharge Disposition: Home or Self Care Social [...] or suspected to have Coronavirus / COVID-19? Unable to assess 03/18/2020 17:04 EDT documented as of this encounter Functional [...] Author No 03/02/2020 16:00 Julissa Phillip RN documented as of this encounter Mental Status * Because of a physical, mental, or emotional condition, do you have serious difficulty concentrating, remembering, or making decisions? (5 years old or older) Answer Entry Date Author No 03/02/2020 16:00 EDT Julissa Nunez RN documented in this encounter Medications at Time of Discharge acetaminophen (TYLENOL) 325 mg tablet Take 2 Tabs by mouth every 4 hours as needed for Pain. 50 Tab 03/31/2020 11/03/2020 aspirin chewable 81 mg tablet Take 1 Tab by mouth daily for 90 days. 30 Tab 03/31/2020 06/29/2020 enoxaparin (LOVENOX) 60 mg/0.6 mL injection Inject 50 mg into the skin every 12 hours for 30 days. 60 Syringe 03/30/2020 04/27/2020 melatonin 5 mg tablet Take 1 Tab by mouth at bedtime for 30 days. 30 Tab 03/31/2020 04/30/2020 pantoprazole (PROTONIX) 40 mg tablet Take 1 Tab by mouth daily for 30 days. 30 Tab 03/31/2020 04/30/2020 polyethylene glycol (MIRALAX) 17 gram/dose powder Take 17 g by mouth daily. 510 g 03/31/2020 02/04/2024 QUEtiapine (SEROQUEL) 50 mg tablet Take 50 mg by mouth at bedtime. 03/07/2022 senna (SENOKOT) 8.6 mg tablet Take 1 Tab by mouth 2 times daily as needed (Constipation ). 03/30/2020 02/04/2024 documented as of this encounter Discharge Disposition Disposition Code Departure Means Destination Home or Self Care documented in this encounter Plan of Treatment Upcoming Encounters Date Type Department Care Team (Late st Contact Info) Description 03/04/2025 14:00 EDT Telemedicine [facility] Neurology Clinic [address] [place] [address] Brayan Polk MD [address] [place] [address] 07/14/2025 14:30 EDT Office Visit [facility] Cancer Center Hematology & Oncology - [facility] [address] [place], [place] [phone] Evin Maria MD 111 [facility], [facility] [place], Level 2 [place] [address] documented as of this encounter Procedures Procedure Name Priority Date/Time Associated Diagnosis Comments CT OUTSIDE IMAGES NEURO Routine 07/08/2020 12:56 EDT documented in this encounter Results * CT OUTSIDE IMAGES NEURO (07/08/2020 12:56 EDT) Narrative LEIGH ANN - 07/08/2020 12:56 EDT This is a non-reportable exam. us Provider Unknown MD CORREA OTHER IMAGING ORDERABLES Final Result LEIGH ANN documented in this encounter Visit Diagnoses Not on filedocumented in this encounter Care Teams Photovoltaic Solar Cell Designer Relationship Specialty Start Date End Date Alejandrina Carrillo PA-C [address] [place] [address] PCP - General 04/07/19 07/05/20 documented as of this encounter
--- OUTSIDE RECORDS SUMMARY | 2024-12-03 16:01 | XMS_ITS | Encounter Summary ---
Author Organization [facility] Address [address] [place] [address] Care Team Providers Care Salesperson New Cars Name Role Phone Alejandrina Carrillo PA-C Primary Care Provider +1- [phone] Encounter Details Date Type Department Care Team (Latest Contact Info) Description 04/27/2020 Travel Social History Tobacco Use Types Packs/Day [...] 10:57 EDT documented as of this encounter Functional [...] [facility] Neurology Clinic [address] [place] [address] Brayan Polk MD 130 [facility] [place] [address] 07/14/2025 14:30 EDT Office Visit [facility] Cancer Center Hematology & Oncology - [address] [id number] Evin Maria MD [address] [place] [address], [address] [place] [address] documented as of this encounter Visit Diagnoses Not on filedocumented in this encounter Care Teams Salesperson New Cars Relationship Specialty Start Date End Date Alejandrina Carrillo PA-C [address] [place] [address] PCP - General 04/07/19 07/05/20 documented as of this encounter
--- OUTSIDE RECORDS SUMMARY | 2024-12-03 16:01 | XMS_ITS | Encounter Summary ---
Author Organization [facility] Address [address] [place] [address] Care Team Providers Care Welder Fitter Name Role Phone Alejandrina Carrillo PA-C Primary Care Provider +1- [phone] Reason for Visit * Reason Onset Date Comments Appointment Related 04/20/2020 Encounter Details Date Type Department Care Team (Late st Contact Info) Description 04/20/2020 Telephone [facility] - [address] [id number] Claus Piña MD [address] [place] [address], [address] [place] [address] Appointment Related Social History Tobacco [...] 16:00 J CARLOST Julissa Nunez RN * Are you blind or do you have serious difficulty seeing, even when wearing glasses? Answer Date of Assessment Author No 03/02/2020 16:00 J CARLOST Julissa Nunez RN * Do you have serious difficulty walking or climbing stairs? (5 years old or older) Answer Date of Assessment Author No 03/02/2020 16:00 EDT Julissa Nunez RN documented as of this encounter Mental Status * Because of a physical, mental, or emotional condition, do you have serious difficulty concentrating, remembering, or making decisions? (5 years old or older) Answer Entry Date Author No 03/02/2020 16:00 EDT Julissa Nunez RN documented in this encounter Miscellaneous Notes * Telephone Encounter - Magalie Yip - 04/20/2020 1126 EDT Spoke to patient/caregiver and scheduled an appointment with Dr. Piña for Friday 04/27 at 11:10. documented in this encounter Plan of Treatment Upcoming Encounters Date Type Department Care Team (Late st Contact Info) Description 03/04/2025 14:00 EDT Telemedicine [facility] Neurology Clinic [address] [place] [id number] Brayan Polk MD [address] [place] [address]-[address] [place] [address] 07/14/2025 14:30 EDT Office Visit [facility] Cancer Center Hematology & Oncology - [address] [id number] Evin Maria MD [address] [place] [address], [address] [place] [address] documented as of this encounter Visit Diagnoses Not on filedocumented in this encounter Care Teams Welder Fitter Relationship Specialty Start Date End Date Alejandrina Carrillo PA-C [address] [place] [address] PCP - General 04/07/19 07/05/20 documented as of this encounter
--- OUTSIDE RECORDS SUMMARY | 2024-12-03 16:01 | XMS_ITS | Encounter Summary ---
Author Organization [facility] Address [address] [place] [address] Care Team Providers Care Critical Care Unit Manager Name Role Phone Alejandrina Carrillo PA-C Primary Care Provider +1- [phone] Reason for Visit * Reason Onset Date Comments Home Health 05/18/2020 appointment Encounter Details Date Type Department Care Team (Late st Contact Info) Description 05/18/2020 Telephone [facility] - [address] [address] Clasu Piña MD [address] [place] [address], [address] [place] [address] Home Health (appointment) Social History Tobacco Use Types Packs/Day Years [...] Miscellaneous Notes * Telephone Encounter - Vashti Rick - 05/23/2020 1057 EDT Spoke with patient's caregiver, Ever, and confirmed appointment details below. Location: [facility] Provider: Nurse Date: 05/30/20 Time: 11:00am * Telephone Encounter - Jess Gupta - 05/18/2020 1212 EDT Sujatha from [facility] calling, states the patient is supposed to have a follow up appointment scheduled in2 weeks, please call patient to schedule. documented in this encounter Plan of Treatment Upcoming Encounters Date Type Department Care Team (Late st Contact Info) Description 03/04/2025 14:00 EDT Telemedicine [facility] [address] [place] [address] Brayan Polk MD 130 [facility] [place] [address] 07/14/2025 14:30 EDT Office Visit [facility] Cancer Center Hematology & Oncology - [address] [phone] Evin Maria MD [address] [place] [address], [address] [place] [address] documented as of this encounter Visit Diagnoses Not on filedocumented in this encounter Care Teams Critical Care Unit Manager Relationship Specialty Start Date End Date Alejandrina Carrillo PA-C [address] [place] [address] PCP - General 04/07/19 07/05/20 documented as of this encounter
--- OUTSIDE RECORDS SUMMARY | 2024-12-03 16:01 | XMS_ITS | Encounter Summary ---
Author Organization [facility] Address [address] [place] [address] Care Team Providers Care Subway Guard Name Role Phone Alejandrina Carrillo PA-C Primary Care Provider +1- [phone] Reason for Visit * Reason Onset Date Comments Appointment Related 06/21/2020 Encounter Details Date Type Department Care Team (Late st Contact Info) Description 06/21/2020 Telephone [facility] - [address] [address] Claus Piña MD [address] [place] [address], [address] [place] [address] Appointment Related Social History Tobacco [...] have Coronavirus / COVID-19? No / Unsure 05/30/2020 10:58 EDT documented as of this encounter Functional [...] * Telephone Encounter - Magalie Yip - 06/28/2020 1530 EDT Images from the original note were not included. Ever called to see if Ynes still needed to come tomorrow due to the scab still being present. I stated Melany said we can push it out a couple of weeks. Ever decided he would like to try for next week and the following appointment was scheduled. * Telephone Encounter - Magalie Yip - 06/28/2020 0926 EDT Ever is calling wanting to know if Ynes still needs to come to the visit tomorrow as she still has the scab. * Telephone Encounter - Cathryn Hill - 06/21/2020 0841 EDT Images from the original note were not included. Left a message for the patient with the following appointment information. [facility]. Office number was provided. documented in this encounter Plan of Treatment Upcoming Encounters Date Type Department Care Team (Late st Contact Info) Description 03/04/2025 14:00 EDT Telemedicine [facility] Neurology Clinic [address] [place], [place] [address] Brayan Polk MD 130 [facility] [address] [place] [address] 07/14/2025 14:30 EDT Office Visit [facility] Cancer Center Hematology & Oncology - [address] [address] Evin Maria MD 111 [facility], [address] [place] [address] documented as of this encounter Visit Diagnoses Not on filedocumented in this encounter Care Teams Subway Guard Relationship Specialty Start Date End Date Alejandrina Carrillo PA-C [address] [place] [address] PCP - General 04/07/19 07/05/20 documented as of this encounter
--- OUTSIDE RECORDS SUMMARY | 2024-12-03 16:01 | XMS_ITS | Encounter Summary ---
Author Organization [facility] Address [address] [place] [address] Care Team Providers Care J2Ee Programmer Name Role Phone Alejandrina Carrillo PA-C Primary Care Provider +1- [phone] Encounter Details Date Type Department Care Team (Latest Contact Info) Description 05/30/2020 Travel Social History Tobacco Use Types Packs/Day [...] 03/04/2025 14:00 EDT Telemedicine [facility] Neurology Clinic [address] [place] [address] Brayan Polk MD 130 [facility] [address] [place] [address] 07/14/2025 14:30 EDT Office Visit [facility] Cancer Center Hematology & Oncology - [address] [phone] Evin Maria MD [address] [place] [address], [address] [place] [address] documented as of this encounter Visit Diagnoses Not on filedocumented in this encounter Care Teams J2Ee Programmer Relationship Specialty Start Date End Date Alejandrina Carrillo PA-C [address] [address] PCP - General 04/07/19 07/05/20 documented as of this encounter
--- OUTSIDE RECORDS SUMMARY | 2024-12-03 16:01 | XMS_ITS | Encounter Summary ---
Author Organization [facility] Address [address] [place] [address] Care Team Providers Care Private Investigator Name Role Phone Alejandrina Carrillo PA-C Primary Care Provider +1- [phone] Romario Hairston MD Primary Care Provider +1- [phone] Reason for Visit * Reason Onset Date Comments Appointment Related 04/01/2020 Telemedicine Video Visit 04/01/2020 Encounter Details Date Type Department Care Team (Late st Contact Info) Description 04/01/2020 Telephone [facility] Adult Neurology - [facility] [address] [place], [place] [phone] Verenice Correa, CLINICAL NUTRITION MANAGER 1 [facility], [address] [place] [address] Appointment Related; Telemedicine Video Visit Social History Tobacco Use Types Packs/Day Years [...] encounter Miscellaneous Notes * Telephone Encounter - Michelle Greco - 04/08/2020 1002 EDT Called patient's sister to see if she was able to help set up Zoom for appointment today with Verenice. She stated it did not work. Patient is unable to find passwords and was very frustrated with the process. Please switch appointment today to a telephone call at 1:30 pm, her friend Ever will be there to help. His number is: [phone] Sister agreed that she will try to help patient again set up Zoom for future appointments. * Telephone Encounter - Tayler Schwab MA - 04/01/2020 1552 EDT Spoke with patient's friend, Ever, who was present with patient. At this time patient has difficultywith speech, so Ever set up appointment. Zoom [id number] is scheduled for 04/08/20 at 1:30pm. Ever said he will have Ynes's sister call back with an email address to send the Zoom invite to. Please route email address to [address] documented in this encounter Plan of Treatment Upcoming Encounters Date Type Department Care Team (Late st Contact Info) Description 03/04/2025 14:00 EDT Telemedicine [facility] Neurology Clinic [address] [place], [place] [address] Brayan Polk MD 130 [facility] [address] [place] [address] 07/14/2025 14:30 EDT Office Visit [facility] Cancer Center Hematology & Oncology - [address] [address] Evin Maria MD [address] [facility], [address] [place] [address] documented as of this encounter Visit Diagnoses Not on filedocumented in this encounter Care Teams Private Investigator Relationship Specialty Start Date End Date Alejandrina Carrillo PA-C [address] [place] [address] PCP - General 04/07/19 07/05/20 Romario Hairston MD [address] [facility], [address] [address] PCP - General 07/06/20 documented as of this encounter
--- OUTSIDE RECORDS SUMMARY | 2024-12-03 16:01 | XMS_ITS | Encounter Summary ---
Author Organization [facility] Address [address] [place] [address] Care Team Providers Care Blending Operator Name Role Phone Alejandrina Carrillo PA-C Primary Care Provider +1- [phone] Reason for Visit * Reason Onset Date Comments Medications Refill 04/27/2020 Encounter Details Date Type Department Care Team (Late st Contact Info) Description 04/27/2020 Refill [facility] Cancer Center Hematology & Oncology - [facility] [address] [place] [address] Adali Garza RN [address] [place] [address] Medications Refill Social History Tobacco Use Types [...] Julissa Nunez RN documented in this encounter Ordered Prescriptions Prescription Sig Dispense Quantity Refills Last Filled Start Date End Date enoxaparin (LOVENOX) 60 mg/0.6 mL injection Inject 50 mg into the skin every 12 hours. 60 Syringe 3 04/27/2020 07/18/2020 documented in this encounter Plan of Treatment Upcoming Encounters Date Type Department Care Team (Late st Contact Info) Description 03/04/2025 14:00 EDT Telemedicine [facility] Neurology Clinic [address] [place] [address] Brayan Polk MD [address] [place] [address]- [address] [place] [address] 07/14/2025 14:30 EDT Office Visit [facility] Cancer Center Hematology & Oncology - [address] [phone] Evin Maria MD [address] [place] [address], [address] [place] [address] documented as of this encounter Visit Diagnoses Not on filedocumented in this encounter Discontinued Medications Medication Sig Discontinue Reason Start Date End Da te enoxaparin (LOVENOX) 60 mg/0.6 mL injection Inject 50 mg into the skin every 12 hours for 30 days. Reorder 03/30/2020 04/27/2020 documented as of this encounter Care Teams Blending Operator Relationship Specialty Start Date End Date Alejandrina Carrillo PA-C [address] [place] [address] PCP - General 04/07/19 07/05/20 documented as of this encounter
--- OUTSIDE RECORDS SUMMARY | 2024-12-03 16:01 | XMS_ITS | Encounter Summary ---
Author Organization [facility] Address [address] [place] [address] Care Team Providers Care Loom Setter Name Role Phone Alejandrina Carrillo PA-C Primary Care Provider +1- [phone] Romario Hairston MD Primary Care Provider +1- [phone] Reason for Visit * Reason Onset Date Comments Appointment Related 04/12/2020 Encounter Details Date Type Department Care Team (Late st Contact Info) Description 04/12/2020 Telephone [facility] Adult Neurology - [facility] [address] [place], [place] [phone] Verenice Correa, JESSICA [address] [place] [address] [address] [place] [address] Appointment Related Social History Tobacco [...] encounter Miscellaneous Notes * Telephone Encounter - Dali [place] - 04/12/2020 1044 EDT Ever called to schedule patient for July. Patient is scheduled on 08/08/2020 at 1:00pm withVerenice Correa. Telemedicine phone call [phone] * Telephone Encounter - Tayler Schwab MA - 04/12/2020 1002 EDT M to schedule 4mon FUR30 with Madeline. If patient calls back please schedule for July 2020. documented in this encounter Plan of Treatment Upcoming Encounters Date Type Department Care Team (Late st Contact Info) Description 03/04/2025 14:00 EDT Telemedicine [facility] [address] [place] [address] Brayan Polk MD 130 [facility] [address] [place] [address] 07/14/2025 14:30 EDT Office Visit [facility] Cancer Center Hematology & Oncology - Main [place] [address] [place], [place] [address] Evin Maria MD 111 [facility], [address] [place] [address] documented as of this encounter Visit Diagnoses Not on filedocumented in this encounter Care Teams Loom Setter Relationship Specialty Start Date End Date Alejandrina Carrillo PA-C [address] [place] [address] PCP - General 04/07/19 07/05/20 Romario Hairston MD [address] [address], [address] [address] PCP - General 07/06/20 documented as of this encounter
--- OUTSIDE RECORDS SUMMARY | 2024-12-03 16:01 | XMS_ITS | Encounter Summary ---
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 ([facility] Antonieta Pickett MD [address] [place] [address] Phone: tel: fax: Claus Piña MD Phone: tel: fax: Referral ID Status Reason Start Date Expiration Date Visits Requested Visits Authorized [id number] Order Cancelled Specialty Services Required 03/02/2020 1 1 Encounter Details Date Type Department Care Team (Late st Contact Info) Description 04/27/2020 11:10 EDT Office Visit [facility] Neurosurgery - [address] [id number] Claus Piña MD [address] [place] [address], [address] [place] [address] Cerebral venous sinus thrombosis (Primary [...] - - Weight 78.5 kg (173 lb) 04/27/2020 1106 EDT Height 170.2 cm (5' 7) 04/27/2020 1106 EDT Body Mass Index 27.1 04/27/2020 1106 EDT documented in this encounter Functional Status [...] Progress Notes * Claus Piña MD - 04/27/2020 1110 EDT Images from the original note were not included. Neurosurgery Postop Outpatient Note Encounter Diagnoses Name Primary? Cerebral venous sinus thrombosis Yes Patient Active Problem List Diagnosis ??? [...] hemorrhage (HCC-CMS) ??? Primary hypercoagulable state (HCC-CMS) 02/16/2020 ??Left frontal, temporal and parietal craniectomy, [...] White return to the office today for follow-up with her sister. She underwent a craniectomy and hemorrhage evacuation as described above about 2 months ago. She seems to have recovered well, with good strength, some problems with balance, but significant difficulties with verbal expression. One observes significant word substitution but there is also some difficulty with understanding speech. Her sister who is with her here today, Francisco Chapa, has guardianship temporarily. There is also not a relative who takes care of her, a person named Ever. We are told to get in touch with him about medication changes. She remains on Lovenox 60 mg twice daily and is due to run out in 2 days. No instructions have beengiven about continuing anticoagulation, but I do see interactions with the neurology clinic and with Dr. Maria of hematology. Current Outpatient Medications on File Prior to Visit Medication Sig Dispense Refill ??? acetaminophen (TYLENOL) 325 mg tablet Take 2 Tabs by mouth every 4 hours as needed for Pain. 50Tab 0 ??? aspirin chewable 81 mg tablet Take 1 Tab by mouth daily for 90 days. 30 Tab 0 ??? bupropion HCl (WELLBUTRIN XL ORAL) Take by mouth. ??? enoxaparin (LOVENOX) 60 mg/0.6 mL injection Inject 50 mg into the skin every 12 hours for 30 days. 60 Syringe 0 ??? melatonin 5 mg tablet Take 1 Tab by mouth at bedtime for 30 days. (Patient not taking: Reportedon 04/08/2020) 30 Tab 0 ??? pantoprazole (PROTONIX) 40 mg tablet Take 1 Tab by mouth daily for 30 days. 30 Tab 0 ??? polyethylene glycol (MIRALAX) 17 gram/dose powder Take 17 g by mouth daily. 510 g 0 ??? QUEtiapine (SEROQUEL) 50 mg tablet Take 50 mg by mouth at bedtime. ??? senna (SENOKOT) 8.6 mg tablet Take 1 Tab by mouth 2 times daily as needed (Constipation). No current facility-administered medications on file prior to visit. Exam: Height 170.2 cm (67), weight 78.5 kg (173 lb). She is awake alert and attentive. Speech production is normal, but content is characterized by significant word substitutions. Her wound is generally well, with 2 areas of scabbing on the posterior superior aspect. The craniectomy site is sunken significantly. Imaging: There is no new imaging. Assessment and Plan: She is making good progress following removal of a large extensive hemorrhage which clearly has created some speech deficits. We discussed the process of restoring the bone flap to position, that is, an autologous cranioplasty. We discussed the surgical process and recovery as well as risks of hemorrhage, epidural fluid collection, and brain injury. It does not appear to me that the wound is ready to be reopened. Our office nurse will see her today regarding wound care. We would want to be able to see her back to reassess her wound before scheduling the cranioplasty. 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 I had contacted and he indeed intended for her to continue on the Lovenox. We will be doing a head CT and we can certainly do a venogram with that study in the near future. We will see her back in the office in 2 or 3 weeks to reassess her wound. Claus Piña MD FACS FAANS Professor, Neurological Surgery To Dr. Alejandrina Carrillo: Thank you for entrusting me with the surgical care of this patient. * Tayler Vallejo RN - 04/27/2020 1110 EDT Saw patient for would assessment. Wound noted to be DI with well approximated edges. Two moderate sized scabs were noted on the incision line. Incision was painted with betadine and patient was advised to pain incision daily for the next 7 days- swabs provided. She will contact the office should scabbing worsen. documented in this encounter Plan of Treatment Upcoming Encounters Date Type Department Care Team (Late st Contact Info) Description 03/04/2025 14:00 EDT Telemedicine [facility] Neurology Clinic [address] [place] [id number] Brayan Polk MD [address] [facility] [address] [place] [address] 07/14/2025 14:30 EDT Office Visit [facility] Cancer Center Hematology & Oncology - [address] [address] Evin Maria MD [address] [facility], [address] [place] [address] documented as of this encounter Visit Diagnoses Diagnosis Cerebral venous sinus thrombosis- Primary Phlebitis and thrombophlebitis of intracranial venous sinuses documented in this encounter Historical Medications * This list may reflect changes made after this encounter. bupropion HCl (WELLBUTRIN XL ORAL) Take by mouth. 07/18/2020 added in this encounter Care Teams Rib Cutter Relationship Specialty Start Date End Date Alejandrina Carrillo PA-C [address] [place] [address] PCP - General 04/07/19 07/05/20 documented as of this encounter
--- OUTSIDE RECORDS SUMMARY | 2024-12-03 16:01 | XMS_ITS | Encounter Summary ---
Author Organization [facility] Address [address] [place] [address] Care Team Providers Care Breaker Oiler Name Role Phone Alejandrina Carrillo PA-C Primary Care Provider +1- [phone] Reason for Visit * Reason Onset Date Comments Appointment Related 06/27/2020 Encounter Details Date Type Department Care Team (Late st Contact Info) Description 06/27/2020 Telephone [facility] - [address] [address] Melany Pedro NP [address] [place] [address], [address] [place] [address] Appointment Related Social History Tobacco [...] encounter Miscellaneous Notes * Telephone Encounter - Acacia Dennis - 06/27/2020 0757 EDT Left message regarding the following appointment details: Date: 06/29/20 Appointment Time: 11:00 Provider: Melany Pedro Notified patient to call the clinic if they were experiencing any covid like symptoms. Also notified patient that we have a strict no visitor policy. documented in this encounter Plan of Treatment Upcoming Encounters Date Type Department Care Team (Late st Contact Info) Description 03/04/2025 14:00 EDT Telemedicine [facility] Neurology Clinic [address] [place] [id number] Brayan Polk MD [address] [facility] [address] [place] [address] 07/14/2025 14:30 EDT Office Visit [facility] Cancer Center Hematology & Oncology - [address] [address] Evin Maria MD [address] [place] [address], [facility], [address] [place] [address] documented as of this encounter Visit Diagnoses Not on filedocumented in this encounter Care Teams Breaker Oiler Relationship Specialty Start Date End Date Alejandrina Carrillo PA-C [address] [place] [address] PCP - General 04/07/19 07/05/20 documented as of this encounter
--- OUTSIDE RECORDS SUMMARY | 2024-12-03 16:01 | XMS_ITS | Encounter Summary ---
Author Organization [facility] Address [address] [place] [address] Care Team Providers Care Lap Runner Name Role Phone Alejandrina Carrillo PA-C Primary Care Provider +1- [phone] Reason for Visit * Reason Comments Wound Check Encounter Details Date Type Department Care Team (Late st Contact Info) Description 05/30/2020 11:00 EDT Nurse Only [facility] Neurosurgery - Main [address] [address] Nurse, [facility] Ep5 Neurosurgery, RN Visit for wound check (Primary Dx) Social History Tobacco Use Types [...] 10:58 EDT documented as of this encounter Last Filed Vital Signs Vital Sign Reading Time Taken Comments Blood Pressure - - Pulse - - Temperature - - Respiratory Rate - - Oxygen Saturation - - Inhaled Oxygen Concentration - - Weight 78.5 kg (173 lb) 05/30/2020 1104 EDT Height 170.2 cm (5' 7) 05/30/2020 1104 EDT Body Mass Index 27.1 05/30/2020 1104 EDT documented in this encounter Functional Status [...] Julissa Nunez RN documented in this encounter Progress Notes * Tayler Vallejo RN - 05/30/2020 1100 EDT Images from the original note were not included. Patient presents to clinic for would check. Patient reports she is doing well with no complaints and the incision appears well healed with no s/s of infection. Patient does continue to have a small area of scabbing on the posterior aspect of the incision. I advised the patient that I would discuss t his with Dr. Piña and the office would contact her with recommendations. documented in this encounter Plan of Treatment Upcoming Encounters Date Type Department Care Team (Late st Contact Info) Description 03/04/2025 14:[address] [facility] [address] [place] [address] Brayan Polk MD [address] [facility] [address] [place] [phone] 07/14/2025 14:30 EDT Office Visit [facility] Cancer Center Hematology & Oncology - [address] [address] Evin Maria MD [address] [facility], [address] [place] [phone] documented as of this encounter Visit Diagnoses Diagnosis Visit for wound check- Primary Encounter for other specified aftercare documented in this encounter Care Teams Lap Runner Relationship Specialty Start Date End Date Alejandrina Carrillo PA-C [address] [place] [address] PCP - General 04/07/19 07/05/20 documented as of this encounter
--- OUTSIDE RECORDS SUMMARY | 2024-12-03 16:01 | XMS_ITS | Encounter Summary ---
Author Organization [facility] Address [address] [place] [address] Care Team Providers Care Avionics Systems Engineer Name Role Phone Alejandrina Carrillo PA-C Primary Care Provider +1- [phone] Reason for Visit * Reason Onset Date Comments Paperwork request 05/03/2020 Encounter Details Date Type Department Care Team (Late st Contact Info) Description 05/03/2020 Telephone [facility] [address] [place] [address] Karen Haley RN Paperwork request Social History Tobacco Use Types Packs/Day Years [...] encounter Miscellaneous Notes * Telephone Encounter - Terry Choudhary - 05/03/2020 1416 EDT Office note from 04/27/20 faxed to number provided * Telephone Encounter - Tayler Vallejo RN - 05/03/2020 1359 EDT Spoke with Sujatha who would like notes faxed to [phone] * Telephone Encounter - Karen Haley RN - 05/03/2020 1324 EDT Sujatha from [facility] requesting notes from visit with Dr. Piña. Patient has expressive aphasia. They would like to know the outcome of her visit. documented in this encounter Plan of Treatment Upcoming Encounters Date Type Department Care Team (Late st Contact Info) Description 03/04/2025 14:00 EDT Telemedicine [facility] [address] [place] [address] Brayan Polk MD [address] [facility] [address] [place] [address] 07/14/2025 14:30 EDT Office Visit [facility] Cancer Center Hematology & Oncology - [address] [address] Evin Maria MD [address] [facility], [address] [place] [phone] documented as of this encounter Visit Diagnoses Not on filedocumented in this encounter Care Teams Avionics Systems Engineer Relationship Specialty Start Date End Date Alejandrina Carrillo PA-C [address] [place] [address] PCP - General 04/07/19 07/05/20 documented as of this encounter
--- OUTSIDE RECORDS SUMMARY | 2024-12-03 16:01 | XMS_ITS | Encounter Summary ---
Author Organization [facility] Address [address] [place] [address] Care Team Providers Care Densitometer Reader Name Role Phone Alejandrina Carrillo PA-C Primary Care Provider +1- [phone] Reason for Visit * Reason Onset Date Comments Discuss Surgery 05/31/2020 Encounter Details Date Type Department Care Team (Late st Contact Info) Description 05/31/2020 Telephone [facility] Neurosurgery - Main [place] [address] [place] [address] Karen Haley RN Discuss Surgery Social History [...] * Telephone Encounter - Magalie Yip - 06/06/2020 1412 EDT Spoke to Ever and let him know that Dr. Piña would like to see Ynes once the scab is off. He will call the office to schedule. * Telephone Encounter - Magalie Yip - 06/03/2020 1043 EDT Ever is calling asking to schedule an appointment for Ynes with Dr. Piña. * Telephone Encounter - Karen Haley RN - 05/31/2020 1038 EDT Male caller looking to discuss surgical scheduling. documented in this encounter Plan of Treatment Upcoming Encounters Date Type Department Care Team (Late st Contact Info) Description 03/04/2025 14:00 EDT Telemedicine [facility] Neurology Clinic [address] [place] [address] Brayan Polk MD [address] [facility] [address] [place] [phone] 07/14/2025 14:30 EDT Office Visit [facility] Cancer Center Hematology & Oncology - [address] [address] Evin Maria MD [address] [facility], [address] [place] [phone] documented as of this encounter Visit Diagnoses Not on filedocumented in this encounter Care Teams Densitometer Reader Relationship Specialty Start Date End Date Alejandrina Carrillo PA-C [address] [place] [address] PCP - General 04/07/19 07/05/20 documented as of this encounter
--- OUTSIDE RECORDS SUMMARY | 2024-12-03 16:01 | XMS_ITS | Encounter Summary ---
Author Organization [facility] Address [address] [place] [address] Care Team Providers Care Cat Swamper Name Role Phone Alejandrina Carrillo PA-C Primary Care Provider +1- [phone] Reason for Visit * Reason Comments Cerebrovascular Accident * Follow Up (Routine) - Order Cancelled Specialty Diagnoses / Procedures [facility] Referred To Contact Neurology Diagnoses Cerebral venous thrombosis Intraparenchymal hemorrhage of brain ([facility]) Stroke ([facility]) Moraima Munguia MD Phone: tel: fax: Verenice Correa NP Phone: tel: fax: Referral ID Status Reason Start Date Expiration Date Visits Requested Visits Authorized [id number] Order Cancelled Specialty Services Required 02/24/2020 1 1 Encounter Details Date Type Department Care Team (Late st Contact Info) Description 04/08/2020 13:30 EDT Telemedicine [facility] Adult Neurology - [address] [id number] Verenice Correa NP [address] [place] [address] [address] 2 [place] [address] Cerebral venous sinus thrombosis (Primary Dx) Social [...] Julissa Nunez RN documented in this encounter Patient Instructions * Patient Instructions* Verenice Correa APRN - 04/08/2020 13:30 EDT ??? Continue with daily ASA 81mg ??? Continue with therapeutic lovenox injections per hematology recommendation ??? Fall precautions; per Neurosurgery, until bone flap replacement surgery ??? Continue with home therapies, PT/OT/BOTTLE WASHING MACHINE OPERATOR ??? Discussed Stroke risk factors and secondary prevention ??? Discussed signs and symptoms of stroke (BEFAST) ??? Reviewed imaging and other test results during hospitalization and any testing done post discharge ??? Provided my contact information with any additional questions regarding stroke ??? Follow up in stroke clinic 4 months documented in this encounter Progress Notes * Verenice Correa APRN - 04/08/2020 1330 EDT Subjective: Ynes White is a 50 y.o. female that I was providing stroke follow up via tele-clinic (phone call). Tele-neurology consultation: Based on the recommendations from the [facility] in the setting of the COVID 19 pandemic, we are working to minimize patient exposure in our Medical center. This consultation has been reviewed by appropriate clinical staff and has been deemed appropriate for a phone consultation. Ynes White (the patient) gave verbal consent to telephone consultation and due to her profound aphasia, asked her live in friend, Ever Linda, to speak onthe phone for her. She was at home in [place], [place] for the consult and I was in [place], [place]. I spent 20 minutes in telephone consultation. Outside reports reviewed: ER records, historical medical records, imaging reports: head/neck imaging, cardiac tests and lab reports. Past Medical History: Diagnosis Date ??? Left-sided nontraumatic intracerebral hemorrhage (HCC-CMS) 03/02/2020 Status post decompressive hemicraniectomy No past surgical history on file. Family [...] for 90 days. 30 Tab 0 ??? enoxaparin (LOVENOX) 60 mg/0.6 mL injection [...] reaction(s): sleep walking with over 5 mg Social History Socioeconomic History ??? Marital status: Spouse name: Not on file ??? Number of children: Not on file ??? Years of education: Not on file ??? Highest education level: Not on file Occupational History ??? Not on file Social Needs ??? Financial resource strain: Not on file ??? Food insecurity: Worry: Not on file Inability: Not on file ??? Transportation needs: Medical: Not on file Non-medical: Not on file Tobacco Use ??? Smoking status: Current Every Day Smoker Packs/day: 0.25 Years: 15.00 Pack years: 3.75 ??? Smokeless tobacco: Never Used Substance and Sexual Activity ??? Alcohol use: Yes ??? Drug use: Not on file ??? Sexual activity: Not on file Lifestyle ??? Physical activity: Days per week: Not on file Minutes per session: Not on file ??? Stress: Not on file Relationships ??? Social connections: Talks on phone: Not on file Gets together: Not on file Attends tenriism service: Not on file Active member of club or organization: Not on file Attends meetings of clubs or organizations: Not on file Relationship status: Not on file ??? Intimate partner violence: Fear of current or ex partner: Not on file Emotionally abused: Not on file Physically abused: Not on file Forced sexual activity: Not on file Other Topics Concern ??? Not on file Social History Narrative ??? Not on file Review of Systems Constitutional: positive for fatigue, negative for fevers, chills, sweats and malaise Behavioral/Psych: negative except for anxiety, depression, sleep disturbance and tobacco use Eyes: positive for visual disturbance Ears, nose, mouth, throat, and face: positive for tinnitus/ringing in ears and wearing a helmet during waiting period for cranioplasty Cardiovascular: negative Respiratory: negative for cough or dyspnea with therapy Gastrointestinal: tolerating diet; PEG tube removed prior to discharge from rehab. no problems withbowel movements Hematologic/lymphatic: followed by Hematology; still continuing with therapeutic lovenox therapy per Hematology recommendations. Genitourinary:negative Skin: negative Musculoskeletal:negative except for muscle weakness Neurological: negative except for coordination problems, gait problems, headaches, paresthesia/abnormal sensation, speech problems, weakness and continues with home PT/OT/BOTTLE WASHING MACHINE OPERATOR. Using walker and 1 assist for fall prevention since bone flap has not been replaced after ruben crani. No reported falls since discharge. Objective: There were no vitals taken for this visit. Physical assessment limited due to telephonic consultation Mental Status and Speech: Alert, cooperative, oriented to name, place and names of people in the room. Speech fragmented, short sentences, simple answers, easily distracted. Answers appropriate to questions Imaging All pertinent imaging reviewed Lab Review All pertinent laboratory values reviewed Assessments: Modified [place]: 4 DEPRESSION SCREEN-:PHQ-2 Over the past two weeks, how often have you been bothered by any of the following problems? Little interest or pleasure in doing things? 0 = not at all Feeling down, depressed, or hopeless? 1 = several days Total point score: 1 Evidence of depression: Yes, Treatment plan: Hx of depression; Has been followed by PCP in the past Score Interpretation for reference PHQ-2 Score Probability of major depressive disorder (percent) Probability of any depressive disorder (percent) 1 15.4 36.9 2 21.1 48.3 3 38.4 75.0 4 45.5 81.2 5 56.4 84.6 6 78.6 92.0 Assessment: Ynes White is a 50 year old female, with a PMHx post concussive syndrome, insomnia, depression and tobacco use, who presented to to [facility] on 02/14/2020 with headache,where a CT head demonstrated a left temporoparietal hemorrhage with a 2mm shift. She was transferred to [facility] for further work up, CT venogram of the head showed a venous thrombosis of the left internal jugular vein, sigmoid and t ransverse sinus, as well as The veins of Trolard and Kristen. She was also found to have a right upper lobe PE. She was started on heparin gtt. On she had a neurological decline and went to surgery with Neurosurgery for a left frontal, temporal, parietal craniotomy and evacuation of IPH. Duringhospitalization, a PEG tube was placed for nutritional support, due to ineffective swallowing ability. She had profound aphasia and mobility deficits. PT/OT/BOTTLE WASHING MACHINE OPERATOR recommended Acute Rehab where she was discharged on 03/02/2020 and stayed as an inpatient to 03/31/2020. Her PEG tube was discontinued as she was able to advance her diet to meet nutritional goals. Hematology was consulted, she was transitioned from the Heparin to therapeutic lovenox per recommendations from Hematology. Etiology of stroke possibly hypercoagulable condition. She was discharged to home where she lives with a friend, Ever Linda, and receives home therapy. She is now able to write her name, address, and is showing improvement with comprehension and speech. No reported falls at home. Is wearing her helmet until bone flap is replaced. Plan: ??? Continue with daily ASA 81mg ??? Continue with therapeutic lovenox injections per hematology recommendation ??? Fall precautions; per Neurosurgery, until bone flap replacement surgery ??? Continue with home therapies, PT/OT/BOTTLE WASHING MACHINE OPERATOR ??? Discussed Stroke risk factors and secondary prevention ??? Discussed signs and symptoms of stroke (BEFAST) ??? Reviewed imaging and other test results during hospitalization and any testing done post discharge ??? Provided my contact information with any additional questions regarding stroke ??? Follow up in stroke clinic 4 months Verenice Correa APRN 04/08/2020 I spent a total of 20 minutes on the phone with Ever Linda (live in friend) and Ynes White today and 20 minutes of that time was spent in counseling and coordination of care as described in the progress note. documented in this encounter Plan of Treatment Upcoming Encounters Date Type Department Care Team (Late st Contact Info) Description 03/04/2025 14:00 EDT Telemedicine [facility] Neurology Clinic [address] [place], [place] [phone] Brayan Polk MD [address] [facility] [address] [place] [address] 07/14/2025 14:30 EDT Office Visit [facility] Hematology & Oncology - [address] [phone] Evin Maria MD [address] [place] [address] [address] [place] [address] documented as of this encounter Visit Diagnoses Diagnosis Cerebral venous sinus thrombosis- Primary Phlebitis and thrombophlebitis of intracranial venous sinuses documented in this encounter Historical Medications * This list may reflect changes made after this encounter. QUEtiapine (SEROQUEL) 50 mg tablet Take 50 mg by mouth at bedtime. 03/07/2022 added in this encounter Care Teams Cat Swamper Relationship Specialty Start Date End Date Alejandrina Carrillo PA-C [address] [place] [address] PCP - General 04/07/19 07/05/20 documented as of this encounter
--- OUTSIDE RECORDS SUMMARY | 2024-12-03 16:01 | XMS_ITS | Encounter Summary ---
Author Organization [facility] [place] [facility] Address [address] [place] [address] Care Team Providers Care Boatwright Name Role Phone Alejandrina Carrillo PA-C Primary Care Provider [phone]- [phone] Reason for Visit * Reason Onset Date Comments Appointment Related 06/17/2020 Returning Call 06/17/2020 Encounter Details Date Type Department Care Team (Late st Contact Info) Description 06/17/2020 Telephone [facility] Cancer [facility] Hematology & Oncology - [address] [address] Grayson Brar PA-C [address] [place] [address], [address] [place] [address] Appointment Related; Returning Call Social History Tobacco Use Types Packs/Day Years [...] * Telephone Encounter - Abena Milan - 06/17/2020 1451 EDT Just spoke to Ever regarding Ynes's appt with JT we have moved to the with Crow.... telemed. * Telephone Encounter - Aleida Flores - 06/17/2020 1304 EDT Please call Ever with pre - appt inquiries, patient will not be able to answer * Telephone Encounter - Deanne Hastings MA - 06/17/2020 1247 EDT Called patient to pre screen for upcoming apt on 06/21 patient did not answer will call back later documented in this encounter Plan of Treatment Upcoming Encounters Date Type Department Care Team (Late st Contact Info) Description 03/04/2025 14:00 EDT Telemedicine [facility] Neurology Clinic [address] [place] [address] Brayan Polk MD [address] [place] [address] [address] [place] [address] 07/14/2025 14:30 EDT Office Visit [facility] Cancer Center Hematology & Oncology - [address] [phone] Evin Maria MD [address] [place] [address], [address] [place] [address] documented as of this encounter Visit Diagnoses Not on filedocumented in this encounter Care Teams Boatwright Relationship Specialty Start Date End Date Alejandrina Carrillo PA-C [address] [place] [address] PCP - General 04/07/19 07/05/20 documented as of this encounter
--- OUTSIDE RECORDS SUMMARY | 2024-12-03 16:01 | XMS_ITS | Encounter Summary ---
Author Organization [facility] Address [address] [place] [address] Care Team Providers Care Agent Contract Clerk Name Role Phone Romario Hairston MD Primary Care Provider [phone]- [phone] Reason for Visit * Reason Comments Wound Check Encounter Details Date Type Department Care Team (Late st Contact Info) Description 07/06/2020 11:00 EDT Office Visit [facility] Neurosurgery - [address] [address] Melany Pedro NP [address] [place] [address], [address] [place] [address] H/O craniotomy (Primary Dx); Preoperative clearance; History of evacuation of hematoma Social History Tobacco Use Types Packs/Day Years [...] 11:07 EDT documented as of this encounter Last Filed Vital Signs Vital Sign Reading Time Taken Comments Blood Pressure - - Pulse - - Temperature - - Respiratory Rate - - Oxygen Saturation - - Inhaled Oxygen Concentration - - Weight 78.5 kg (173 lb) 07/06/2020 1113 EDT Height 170.2 cm (5' 7) 07/06/2020 1113 EDT Body Mass Index 27.1 07/06/2020 1113 EDT documented in this encounter Functional Status [...] Progress Notes * Melany Pedro APRN - 07/06/2020 1100 EDT Chief Complaint Patient presents with ??? Wound Check HPI: Ynes White is a 50 y.o. female who presents accompanied by a friend, Ever, for a wound check. She had a craniotomy for hematoma and venous infarction in January, see op note below. She has had some scabbing on her incision line for the past two months and surgical planning for a cranioplasty is on hold until the scabbing is resolved. Today she reports that the scab fell off on its own a few days ago. She has been working hard with shampooing and using betadine swabs to clean her incision. 02/16/2020 ??Left frontal, temporal and parietal craniectomy, [...] consciousness and ultimately an enlarging left pupil. She mentions that she has noticed that she is linking smells to childhood memories frequently as of late. She also has complaint of right shoulder pain. She reportedly did talk to her PCP who told her she has a frozen shoulder. She reports that she has been taking APAP 1300mg every 2 hours and it is not helpful. ROS: - Constitutional: Denies fever, chills, unintentional weight loss, unusual fatigue - HEENT: Denies changes in vision/hearing, pain in eyes, changes in swallowing ability - Respiratory: Denies SOB, cough, dyspnea - Cardiovascular: Denies chest pain, palpitations, orthopnea, ankle swelling - GI: Denies nausea, vomiting, diarrhea, constipation, bowel incontinence - : Denies urgency, frequency, urinary incontinence - MSK: negative for joint pain, joint swelling, difficulty with gait - Neuro: Denies dizziness, seizure, tingling, burning - Psych: Denies anxiety/depression - Hematologic: Denies easy bruising/bleeding - Integumentary: Denies rashes Past Medical History: Diagnosis Date ??? Left-sided [...] on phone: None Gets together: None Attends spiritism service: None Active member of club or organization: None Attends meetings of clubs or organizations: None Relationship status: None ??? Intimate partner violence Fear of current or ex partner: None Emotionally abused: None Physically abused: None Forced sexual activity: None Other Topics Concern ??? None Social History Narrative ??? None EXAM: Patient Vitals for the past 24 hrs: Height Weight 07/06/20 1113 170.2 cm (67) 78.5 kg (173 lb) Awake, alert, conversant with some word substitution. Scalp incision is free of scabs, appears well healed. Some dry skin along scalp line noted. Assessment/Plan H/O craniotomy - Now that scabs have resolved, patient is cleared to be scheduled for her cranioplasty. Discussed that she will need a head CT per bruce Gage to have this scheduled at [facility]. Willorder STAT to try to accommodate a tentative 07/12/2020 surgery date. Pre-op labs and chest XR ordered. Pre-op labs to include a thrombosis panel per hematology recommendation. Encouraged Ever to call hematology clinic to confirm plan for anticoagulation as the patient is currently on twice daily lovenox for history of hematoma/infarction. Shoulder pain - Discussed that patient should speak with her PCP about this. Reviewed maximum dailydose for APAP - less than 4g/day ideally. She stated understanding of this. Recommended that the patient avoid NSAIDs as she is currently on anticoagulation. RTC/FU After surgery for post-op visit or PRN if need arises. 10 of this 15 minute face to face visit were spent in patient counseling/coordination of care. documented in this encounter Plan of Treatment Upcoming Encounters Date Type Department Care Team (Late st Contact Info) Description 03/04/2025 14:00 EDT Telemedicine [facility] Neurology Clinic [address] [place], [place] [phone] Brayan Polk MD 130 [facility] [address] [place] [address] 07/14/2025 14:30 EDT Office Visit [facility] Center Hematology & Oncology - [address] [address] Evin Maria MD [address] [facility], [address] [place] [address] documented as of this encounter Visit Diagnoses Diagnosis H/O craniotomy- Primary Other postprocedural status Preoperative clearance Preoperative examination, unspecified History of evacuation of hematoma documented in this encounter Care Teams Agent Contract Clerk Relationship Specialty Start Date End Date Romario Hairston MD [address], [address] [phone] PCP - General 07/06/20 documented as of this encounter
--- OUTSIDE RECORDS SUMMARY | 2024-12-03 16:01 | XMS_ITS | Encounter Summary ---
Author Organization [facility] Address [address] [place] [address] Care Team Providers Care Senior Clinical Research Scientist Name Role Phone Alejandrina Carrillo PA-C Primary Care Provider +1- [phone] Romario Hairston MD Primary Care Provider +1- [phone] Reason for Visit * Reason Onset Date Comments Coordination Of Care 04/21/2020 Encounter Details Date Type Department Care Team (Late st Contact Info) Description 04/21/2020 Telephone [facility] Hematology & Oncology - [address] [address] Evin Maria MD [address] [place] [address], [address] [place] [address] Coordination Of Care Social History Tobacco Use [...] * Telephone Encounter - Abena Milan - 04/27/2020 3328 EDT Talked to patient and then her sister Francisco Chapa, Pt has an appt.. With Tolstlinda on 06/21 at 10am will have help there for the Telemedicine phonecall. His name is Ever. Refill of Lovenox has been sent. From Dr. Crow Wilhelm RN * Telephone Encounter - Toni Luna - 04/21/2020 0963 EDT Sujtaha from calling to follow up on scheduling patient to be seen. She states that her Lovenox injestions will be ending next week and that patient needs to be scheduled to be seen. Please call back to schedule documented in this encounter Plan of Treatment Upcoming Encounters Date Type Department Care Team (Late st Contact Info) Description 03/04/2025 14:00 EDT Telemedicine [facility] Neurology Clinic [address] [place] [address] Brayan Polk MD 130 [facility] [address] [place] [address] 07/14/2025 14:30 EDT Office Visit [facility] Cancer Center Hematology & Oncology - [facility] [address] [place], [place] [address] Evin Maria MD 111 [facility], [address] [place] [phone] documented as of this encounter Visit Diagnoses Not on filedocumented in this encounter Care Teams Senior Clinical Research Scientist Relationship Specialty Start Date End Date Alejandrina Carrillo PA-C [address] [facility] [place] [address] PCP - General 04/07/19 07/05/20 Romario Hairston MD [address], [address] [id number] PCP - General 07/06/20 documented as of this encounter
--- OUTSIDE RECORDS SUMMARY | 2024-12-03 16:01 | XMS_ITS | Encounter Summary ---
Author Organization [facility] Address [address] [place] [address] Care Team Providers Care Senior Back End Java Developer Name Role Phone Alejandrina Carrillo PA-C Primary Care Provider [phone]- [phone] Reason for Visit * Reason Comments Telemedicine Phone Call Encounter Details Date Type Department Care Team (Late st Contact Info) Description 06/22/2020 13:30 EDT Telemedicine [facility] Hematology & Oncology - [address] [address] Evin Maria MD [address] [place] [address], [address] [place] [address] Cerebral venous sinus thrombosis (Primary [...] Progress Notes * Evin Maria MD - 06/22/2020 1330 EDT Thrombosis & Hemostasis Program (THP) Follow Up Visit Date of Service: 06/22/2020 Problem List: Patient Active Problem List Diagnosis Date Noted ??? Primary hypercoagulable state ([facility]) 03/23/2020 Thrombosis Events A. 11/17/2019: Right [...] issue. Treatment and prevention A. Will need nursing home anticoagulation - agent TBD ??? 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 Cerebral edema ([facility]) 02/17/2020 ??? Cerebral venous sinus thrombosis [...] Chief Complaint Patient presents with ??? Telemedicine Phone Call The concept of ???Telemedicine?? has been described [...] health care. HPI: Ms. White is doing extremely well. The phone call is facilitated by her partner Ever - but the phone is on speakerphone and she understands what I am saying and is able to express her ideas. Ever helps occasionally with complex ideas or if she does not understand something. She does not have headaches any more. She gets dizzy, and wonders when this will get better. She isable to dress herself, able to eat, able to shower, her strength is improving, and her speech is improving. She wonders when she can get of the injections (enoxaparin), but they are not too troublesome for her. She is not having any bleeding or bruising and the injections only occasionally leave a small maria esther. ROS: (Intake form with complete ROS reviewed and scanned into PRISM) Pertinent positives: See hPI Pertinent negatives: See HPI Social History: Patient reports that she has quit smoking. She has a 3.75 pack-year smoking history. She has never used smokeless tobacco. She reports that she drinks alcohol. Social History Social History Narrative ??? Not on file Medications: QUEtiapine, acetaminophen, aspirin chewable, bupropion HCl, enoxaparin, melatonin, polyethylene glycol, and senna Allergies: Patient is allergic to citalopram; duloxetine; pregabalin; and zolpidem. Physical Exam: There were no vitals filed for this visit.Estimated body mass index is 27.1 kg/m?? as calculated from the following: Height as of 05/30/20: 170.2 cm (67). Weight as of 05/30/20: 78.5 kg (173 lb). Time on Telephone: 16 minutes This visit was conducted by telephone (audio only). The visit was not the result of a visit in the past 7 days. The telephone visit did not result in an urgent in-person visit the same day or the next available visit. Evin Maria MD 06/22/2020 13:33 Labs: Basic Metabolic Panel Lab Results Component Value Date NA 134 (L) 03/21/2020 K 5.2 (H) 03/21/2020 CL 100 03/21/2020 CO2 26 03/21/2020 BUN 34 (H) 03/18/2020 CREATININE 0.65 03/21/2020 CALCGFR 102 03/21/2020 CAION 1.13 02/16/2020 CALCIUM 7.5 (L) 03/18/2020 CALCCA 8.6 03/18/2020 MG 1.7 03/02/2020 PHOS 4.6 (H) 03/07/2020 Gastrointestinal Lab Results Component Value Date ALKPHOS 123 03/18/2020 AST 40 03/18/2020 ALT 68 (H) 03/18/2020 CONJBILI 0.0 05/07/2001 UNCONJBILI 0.3 05/07/2001 TBIL <0.5 03/18/2020 TP 5.0 (L) 03/18/2020 LABALBU 2.6 (L) 03/18/2020 LIPASE 69 03/18/2020 Complete Blood Count Lab Results Component Value Date ABO AB 02/16/2020 WBC 5.16 03/21/2020 RBC 3.71 (L) 03/21/2020 HGB 11.6 03/21/2020 HCT 34.4 (L) 03/21/2020 MCV 93 03/21/2020 MCH 31.3 03/21/2020 MCHC 33.7 03/21/2020 PLT 220 03/21/2020 MPV 12.3 03/21/2020 RDWCV 12.6 03/21/2020 Differential (Absolute) Lab Results Component Value Date DIFFTYPE Auto 03/18/2020 NEUTROABS 2.93 03/18/2020 LYMPHSABS 2.59 03/18/2020 MONOSABS 0.49 03/18/2020 EOSABS 0.22 03/18/2020 BASOSABS 0.03 05/07/2001 Anemia No results found for: RETICCTPCT, IRON, UIBC, TIBC, TRANSFERRIN, FERRITIN, LEAD, FOLATE, [id number], HAPTOGLOBIN Thrombosis Panel Lab Results Component Value Date PROTIME 13.2 03/02/2020 INR 1.1 03/02/2020 PTT 39 (H) 03/02/2020 PROTCCLOT 55 (L) 02/15/2020 PROTSCLOT >150 (H) 02/15/2020 DRVVT 39.6 (H) 02/18/2020 Imaging: EXAM: MRV HEAD WO/W CONTRAST ?? HISTORY: Dural venous sinus thrombosis suspected; Recent central venous thrombosis, secondary hemorrhage requiring decompressive craniectomy, severe episodic headache. ?? TECHNIQUE: MR venogram of the head without and with intravenous gadolinium contrast. Maximal intensity projected reformatted images were obtained, adjusted on an independent workstation, and reviewedprior to interpretation. ?? COMPARISON: None. ?? FINDINGS: ?? DURAL VENOUS SINUSES: Decreased clot burden within the left transverse and sigmoid sinuses with persistent thin linear filling defects at these locations. No other areas of venous sinus thrombosis. ?? CORTICAL VEINS: The left vein of Kristen is diminutive at its peripheral aspect, similar to prior CTV. No new clot within the left vein of Kristen. No evidence of new cortical vein thrombosis thrombosis. ?? DEEP CEREBRAL VEINS: No evidence of thrombosis. ?? INTRACRANIAL ARTERIAL VASCULATURE: No evident abnormality. ?? NONANGIOGRAPHIC INTRACRANIAL CONTENTS: Sequela of venous infarction and prior hemorrhage in the left temporal lobe is again seen with expected T1 hyperintensity on postcontrast sequences in the region of prior parenchymal injury. Small fluid collection subjacent to the there are in the region of the craniectomy is similar to prior CT. No evidence of new extra-axial collections. Postsurgical changes related to prior left-sided craniectomy are unchanged. IMPRESSION Interval decrease in the clot burden within left transverse and sigmoid sinus. The left vein of Kristen continues to be diminutive at its most peripheral aspects with no new thrombus within this cortical vein identified. ?? Postsurgical changes related to left-sided craniectomy and sequela of parenchymal injury/hemorrhagein the left temporal lobe have an expected appearance. ? Specimen Collected: 03/23/20 19:56 Last Resulted: 03/23/20 19:56 Assessment: Ms. White is a 50 year-old female with an unprovoked and devastating cerebral sinus thrombosis. Her protein C level was low in the acute setting but we have not done formal thrombophilia testing yet. Overall, she needs a year of treatment for the cerebral sinus thrombosis. After her bone flap is replaced, we can consider switching her to warfarin (depending on the status of the pandemic). At 12 months if she doesn't have a lupus anticoagulant, we could consider switching to a DOAC for secondaryprevention. Of note - she is much improved from my last visit with her in February. She can understand me, she canspeak, and she is able to communicate complicated ideas. Plan: 1. Anticoagulation for cerebral sinus thrombosis A. Continue enoxaparin 60mg sub-Q BID B. After skull is reconstructed, will switch to an oral agent. 2. Anticoagulation for skull reconstruction A. Patient (or Ever) to call with date of procedure. B. Hold enoxaparin day prior to procedure. C. Start enoxaparin 40mg sub-Q as soon as possible - ideally 12-24 hours after procedure. D. Ramp up to 60mg sub-Q BID when able. 3. Thrombosis testing A. Test her when she comes in for surgery - draw thrombosis panel not on warfarin PRIOR to surgery. 4. Secondary prevention A. After surgery switch to warfarin when able. B. In 12 months could consider a DOAC for secondary prevention. 5. Follow-up in 3 months. Please contact my office with questions/concerns. Evin Maria M.D. 06/22/2020 13:33 cc: Alejandrina Carrillo documented in this encounter Plan of Treatment Upcoming Encounters Date Type Department Care Team (Late st Contact Info) Description 03/04/2025 14:00 EDT Telemedicine [facility] [address] [place] [id number] Brayan Polk MD [address] [facility] [address] [place] [address] 07/14/2025 14:30 EDT Office Visit [facility] Hematology & Oncology - [facility] [address], [place] [id number] Evin Maria MD [address] [facility], [facility], [address] [place] [id number] documented as of this encounter Visit Diagnoses Diagnosis Cerebral venous sinus thrombosis- Primary Phlebitis and thrombophlebitis of intracranial venous sinuses documented in this encounter Historical Medications * This list may reflect changes made after this encounter. melatonin 5 mg tablet Take 2 Tablets by mouth at bedtime. 02/25/2024 added in this encounter Care Teams Senior Back End Java Developer Relationship Specialty Start Date End Date Alejandrina Carrillo PA-C [address] [place] [address] PCP - General 04/07/19 07/05/20 documented as of this encounter
--- OUTSIDE RECORDS SUMMARY | 2024-12-03 16:01 | XMS_ITS | Encounter Summary ---
Author Organization [facility] Address [address] [place] [address] Care Team Providers Care Power Operator Name Role Phone Alejandrina Carrillo PA-C Primary Care Provider [phone]- [phone] Reason for Visit * Reason Onset Date Comments Appointment Related 07/05/2020 Encounter Details Date Type Department Care Team (Late st Contact Info) Description 07/05/2020 Telephone [facility] - [address] [id number] Melany Pedro NP [address] [place] [address], [address] [place] [address] Appointment Related Social History Tobacco [...] * Telephone Encounter - Acacia Dennis - 07/05/2020 1403 EDT Spoke with Ynes about the following appointment details. Date: 07/06/20 Appointment Time: 11:00 Provider: Melany Pedro Patient wasn't experiencing any covid like symptoms.Pt's food counter worker will be accompanying her. documented in this encounter Plan of Treatment Upcoming Encounters Date Type Department Care Team (Late st Contact Info) Description 03/04/2025 14:00 EDT Telemedicine [facility] [address] [place] [id number] Brayan Polk MD [address] [facility] [address] [place] [address] 07/14/2025 14:30 EDT Office Visit [facility] Hematology & Oncology - [address] [address] Evin Maria MD [address] [place] [address], [address] [place] [address] documented as of this encounter Visit Diagnoses Not on filedocumented in this encounter Care Teams Power Operator Relationship Specialty Start Date End Date Alejandrina Carrillo PA-C [address] [place] [address] PCP - General 04/07/19 07/05/20 documented as of this encounter
--- OUTSIDE RECORDS SUMMARY | 2024-12-03 16:02 | XMS_ITS | Encounter Summary ---
Author Organization [facility] Address [address] [place] [address] Care Team Providers Care Avionics Shop Supervisor Name Role Phone Alejandrina Carrillo PA-C Primary Care Provider [phone] Reason for Referral * Referral (Routine/Next Available) - New Request Specialty Diagnoses / Procedures [facility] Referred To Contact Diagnoses Cerebral venous thrombosis Nontraumatic hemorrhage of left cerebral hemisphere (HCC-CMS) Essential hypertension Jaden Rutherford MD Phone: tel: fax: [facility] [place] [address] [place] [address] Phone: tel: fax: Referral ID Status Reason Start Date Expiration Date Visits Requested Visits Authorized [id number] New Request Specialty Services Required 03/31/2020 1 1 Question Answer I certify that this patient is under my care and that I, or another Medicare allowed practitioner (DO DONN, RYNE) working with me, had a [id number] encounter with this patient on this date: 03/31/2020 I further certify that the [id number] encounter was in whole or in part [...] heatlh care needs and plan of care Alejandrina Carrillo The patient? s homebound status is related to the following diagnoses, illness or condition (describe): Central venous thrombosis, status post left decompressive craniectomy The patient has a condition due to an illness or injury that restricts the ability to leave home except with: The assistance or supervision of another person Leaving the home is medically contraindicated due to (reason 1): Risk of falls and/or history of falls require the assistance/supervision of another person Leaving home requires a considerable and taxing effort with mobility limited by the following (criteria 1): The severity of the neurological disease limits functional ability and ambulation Nursing skilled care requested: Nursing asessment, Physical Therapy, ANESTHESIOLOGY PHYSICIAN ASSISTANT, Occupational therapy, Social work, INTELLIGENCE OFFICER BASIC for personal care, Disease management custodial assessment needed related to this encounter: Neuro Status Nursing Home Referral - Disease Mgmt and Education about: Medication Mgmt Physical therapy is needed for: Evaluation, Post Surgical, Strength Training/Exercise Program, Safety, Gait/Mobility Assessment and Training, Equipment Recommendations ANESTHESIOLOGY PHYSICIAN ASSISTANT for: Communication Occupational Therapy for: ADL Training, Assess Need for Adaptive Equipment, Bathroom Equipment Eval Social Work Referral: Eval Psychosocial Factors Impeding Progress Towards Medical Plan of Care, Assess Psychiatric Nurse Planning Needs INTELLIGENCE OFFICER BASIC for Personal Care (SN/PT referral req'd): Yes Expected Discharge Date (Inpatient Only): 03/31/2020 * PT/OT/ST (Routine) - New Request Specialty Diagnoses / Procedures Referred By Mitch pruett Referred To Contact Diagnoses Cerebral venous thrombosis Nontraumatic hemorrhage of left cerebral hemisphere (HCC-CMS) Jaden Rutherford MD Phone: tel: fax: Referral ID Status Reason Start Date Expiration Date Visits Requested Visits Authorized [id number] New Request Specialty Services Required 03/31/2020 1 1 Question Answer Type of ANESTHESIOLOGY PHYSICIAN ASSISTANT Eval: Communication-Cognitive Eval & Treat, Aphasia Eval & Treat Reason for Request: Central venous thrombosis, left intracerebral hemorrhage. Expected Discharge Date (Inpatient Only): 03/31/2020 Reason for Visit * Auth/Cert Specialty Diagnoses / Procedures Referred By Mitch pruett Referred To Contact Diagnoses Encounter for other specified aftercare Cerebral venous thrombosis Referral ID Status Reason Start Date Expiration Date Visits Re quested Visits Authorized [id number] 1 1 Encounter Details Date Type Department Care Team (Latest Contact Info) Description 03/02/2020 13:13 EDT - 03/31/2020 11:00 EDT Hospital Encounter [facility] Rehabilitation Therapy Unit Level 2 [address] [place] [address] Jaden Rutherford MD [address] [place] [address] Cerebral venous thrombosis; Nontraumatic hemorrhage of left cerebral hemisphere (HCC-CMS); Essential hypertension; Acute kidney injury (HCC-CMS) Discharge Disposition: Home-Health Care Svc Social History [...] 17:04 EDT documented as of this encounter Last Filed Vital Signs Vital Sign Reading Time Taken Comments Blood Pressure 116/74 03/31/2020 0713 EDT Pulse 79 03/31/2020 0713 EDT Temperature 35.7 ??C (96.3 ??F) 03/31/2020 0713 EDT Respiratory Rate 14 03/31/2020 0713 EDT Oxygen Saturation 100% 03/25/2020 1545 EDT Inhaled Oxygen Concentration - - Weight 78.8 kg (173 lb 11.2 oz) 03/30/2020 0900 EDT Height 170.2 cm (5' 7) 03/04/2020 0928 EDT Body Mass Index 27.21 03/04/2020 0928 EDT documented in this encounter Functional Status * Are you deaf or do you have serious difficulty hearing? Answer Date of Assessment Author No 03/02/2020 16:00 EDT Julissa Nnuez RN * Are you blind or do [...] Answer Entry Date Author No 03/02/2020 16:00 EDJulissa Garcia RN documented in this encounter Discharge Summaries * Jaden Rutherford MD - 03/31/2020 0758 EDT Discharge Summary Date of Service: 03/31/2020 Chief Complaint/Reason for Admission: Central venous thrombosis, left temporoparietal hemorrhage, status post decompressive craniectomy. Admission date: 03/02/2020 Discharge date: 03/31/2020 Condition at Discharge: Good Assessment at Discharge: Temp: [35.7 ??C (96.3 ??F)] (), Pulse: [79] (), Resp: [14] (), BP: (116)/(74) (), SpO2: -- () Past Medical History: Diagnosis Date ??? Left-sided nontraumatic intracerebral hemorrhage (HCC-CMS) 03/02/2020 Status post decompressive hemicraniectomy History of Illness Prior to Rehabilitation Admission: Per HPI 03/02/2020: Patient is a??50-year-old female with a history of postconcussive syndrome and tobacco abuse. ??Shezacd noted headache on 02/13/2020 was evaluated at [facility], where CT scan of the head was reported as negative she was discharged to home. ??On 02/14/2020, she had continued headache, and brought back to [facility] where CT scan of the head showed a significant left temporoparietal intracranial hemorrhage with 2 mm shift, she was hypertensive at 170/100. ??She was transferred to the [facility] for further evaluation. ??On admission, she was seen by neurosurgery and??neurology. ??CT angiogram of the head and neck and CT venogram of the head demonstrated venous thrombosis the left internal jugular vein, sigmoid and transverse sinus as well as the veins of Trolard and Kristen. ??Intraparenchymal hemorrhage had increased slightly but there was stable midline shift with no evidence ofherniation. ??She additionally was found to have a segmental right upper lobe acute pulmonary embolism , without evidence of right heart strain. Cerebral hemorrhage remained stable on serial CT scansshe was started on intravenous heparin. ??On 02/16/2020, she did have a neurologic decline and hemorrhage was found to be expanded with midline shift, right hemiparesis was noted with decreased level of consciousness and enlarging left pupil. ??She was taken urgently operating room on 02/16/[address] Piña who performed a left frontal, temporal and parietal craniectomy and evacuation of intraparenchymal hemorrhage. ? On 02/18/2020, acute care surgery placed a percutaneous gastrostomy tube. Hematology is also been involved and additional studies demonstrated left upper extremity DVT. ??Work-up for thrombosis has been nonconclusive. ?? She was initiated on IV heparin, converted to therapeutic dose Lovenox. Given dysphasia, a gastrostomy tube was placed on 02/18/[address] Branch. She has subsequently been advanced to a dysphagia level 4 diet. ?? Low molecular weight heparin level is recommended after third or fourth dose of Lovenox since was increased to therapeutic doses. Her course was incidentally notable for a hepatic lesion, and ultrasound suggestive of simple hepatic cyst with mild hepatic steatosis and borderline hepatomegaly.??PT, OT, ANESTHESIOLOGY PHYSICIAN ASSISTANT have all been involved in her care she is remained with significant limitations with overallmobility, self-cares, communication and swallowing function. Given these limitations, she was evaluated and determined to be an appropriate candidate for acute inpatient rehabilitation. Patient transferred to acute rehab 03/02/2020 Problems Addressed During Rehabilitation Admission: 1. ??Left frontal intraparenchymal hemorrhage:??Status post decompressive craniectomy. ??Patient with residual mild right-sided weakness, significant expressive and receptive aphasia, dysphagia, right homonymous hemianopsia. Patient underwent comprehensive rehabilitation program including OT, PT, ANESTHESIOLOGY PHYSICIAN ASSISTANT and 24 hour rehab nursing. Patient progressed functionally and on discharge is ambulating with supervision, and able to complete basic ADLs with supervision. She remains with a moderate-severe expressive and receptive aphasia most consistent with a Wernicke's type a with some deviation from atypical Warnicke's presentation. Expressive language is characterized as fluent but mostly consists of aword solid with many instances of jargon, neologisms and paraphasias. Her expressive errors increase when she is fatigued or excited. Her hospital course was notable for intermittent severe headache, with no acute changes on CT scan of the head or on MR I venogram. Surgical wound is showing good healing, with small eschar in the posterior aspect of the wound. Headache has resolved at discharge. She is wearing a helmet when out ofbed. Is been advanced to regular consistency. 2. ??Central venous thrombosis: Etiology has remained uncertain. It was noted that she was on some hormone replacement therapy perimenopausal on admission, she has been advised to not resume that medication. There was??evidence of left IJ, sigmoid and transverse sinuses as well. ??She has remained on therapeutic dose Lovenox and will follow-up in the THP clinic. 3. ??Right upper lobe pulmonary embolism, left upper extremity DVT: On therapeutic dose Lovenox with therapeutic level. 4. ??History of anxiety/depression: Clinically stable during her stay, continue to provide emotional support. 5. Nutrition: Regular consistency diet. Her gastrostomy tube was used only transiently. It was leftin close to 6 weeks from placement and removed without incident and good closure of the site. Disposition: The patient is being discharged to home 03/31/2020. Assistance to be provided by her significant other. Caregiver training completed although modified in the setting of the COVID-19 pandemic Continued home services to include RN, PT, OT, ANESTHESIOLOGY PHYSICIAN ASSISTANT and home health aide and social media manager have been requested. Helmet on when out of bed No future appointments. Last Lab Results at Discharge: BUN: Lab Results Component Value Date BUN 34 (H) 03/18/2020 Creatinine: Lab Results Component Value Date CREATININE 0.65 03/21/2020 CBC: Lab Results Component Value Date WBC 5.16 03/21/2020 RBC 3.71 (L) 03/21/2020 HGB 11.6 03/21/2020 HCT 34.4 (L) 03/21/2020 MCV 93 03/21/2020 MCH 31.3 03/21/2020 MCHC 33.7 03/21/2020 PLT 220 03/21/2020 DIFFTYPE Auto 03/18/2020 Electrolytes: Lab Results Component Value Date NA 134 (L) 03/21/2020 K 5.2 (H) 03/21/2020 CL 100 03/21/2020 CO2 26 03/21/2020 Medications at Discharge: Ynes White Home Medication Instructions [id number] Printed on:03/31/20 7835 Medication Information acetaminophen (TYLENOL) 325 mg tablet Take 2 Tabs by mouth every 4 hours as needed for Pain. aspirin chewable 81 mg tablet Take 1 Tab by mouth daily. enoxaparin (LOVENOX) 60 mg/0.6 mL injection Inject 50 mg into the skin every 12 hours for 30 days. melatonin 5 mg tablet Take 1 Tab by mouth at bedtime. pantoprazole (PROTONIX) 40 mg tablet Take 1 Tab by mouth daily for 30 days. polyethylene glycol 3350 (MIRALAX) 17 gram packet Take 17 g by mouth daily as needed for Other. senna (SENOKOT) 8.6 mg tablet Take 1 Tab by mouth 2 times daily as needed (Constipation). cc: Primary Care Provider: Alejandrina Carrillo [facility] [address] [address] Referring Provider: No referring provider defined for this encounter. Phone: N/A Fax: Discharge Summary Completed: yes 50 minutes total time spent on discharge today including discussion and instruction to patient and caregiver, preparation of records, prescriptions and referrals. documented in this encounter Discharge Instructions * Discharge Instructions* Lula Hester OT - 03/31/2020 7:02 EDT Occupational therapy recommendations: Medication management: ?? Use a weekly pill organizer. Have assistance to set up the pill organizer and supervision to be sure you are taking all medications as prescribed. Showering recommendations: ?? Need a shower chair ?? Grab bars ?? Long handled shower hose ?? Non slip personnel and payroll technician stickers for tub floor ?? WEAR HELMET EVERYTIME STANDING ?? Supervision when sitting to take helmet off to wash head ? Safety with mobility: ?? Stand on right side, cues to pay attention to the right ?? Take frequent rests ?? Use walker for longer distances, like outside ?? Work with home health to progress this ?? Driving: ?? No driving until medically cleared ?? Vision: ?? Seems to have difficulty with scanning to the right ?? Work with here to look left and right ?? Will need follow up with neuro ophthalmology in the future, will need your MD to refer ?? House activities: ?? Can start doing light things in the kitchen, like making cereal, sandwiches etc. ?? Will need someone nearby for safety. ?? Bedtime and morning routine: ?? Go to the bathroom right before bed ?? Once in bed, place helmet on bedside table ?? Walker nearby ?? Call for help before you go to the bathroom ?? Decrease fluid intake before bed so you don???t need to get up and go to the bathroom ?? Able to get dressed/undressed with supervision for safety MINA Vogel/Pieter * Discharge Instr - AVS First Page* Evy Gross RN - 03/31/2020 8:47 EDT Please schedule an appointment with Alejandrina Carrillo within 2 weeks. The contact information for your PCP is: Alejandrina Carrillo [facility] [facility], [place] [address] At that visit you will need to get refills on all new prescriptions started in this hospitalizationif they need to be continued. All prescriptions written by your Rehabilitation Physician are for 30 DAYS ONLY with no refills, and will need to be renewed by your PCP. You will need to be seen by your physician (either PCP or surgeon) to determine what medications are needed before your narcotic prescriptions run out. Any medications you do not need should be safely disposed of at a designated drop box at a pharmacy, police station, or other location identified by your town. Please bring this Summary of your Hospital Stay and your prescription bottles to your next physician appointment. If you have any questions or problems regarding your discharge ?? If you were on the 1st floor, call [phone], the Rehab 1 Unit desk. ?? If you were on the 2nd floor, call [phone], the Rehab 2 Unit desk. The team will determine who will be the best person to get back to you to resolve the issue. documented in this encounter Medications at Time [...] by mouth daily. 510 g 03/31/2020 02/04/2024 senna (SENOKOT) 8.6 mg tablet Take 1 Tab by mouth 2 times daily as needed (Constipation ). 03/30/2020 02/04/2024 documented as of this encounter Ordered Prescriptions Prescription Sig Dispense Quantity Refills Last Filled Start Date End Date polyethylene glycol (MIRALAX) 17 gram/dose powder Take 17 g by mouth daily. 510 g 03/31/2020 4 melatonin 5 mg tablet Take 1 Tab by mouth at bedtime for 30 days. 30 Tab 03/31/2020 0 aspirin chewable 81 mg tablet Take 1 Tab by mouth daily for 90 days. 30 Tab 03/31/2020 0 acetaminophen (TYLENOL) 325 mg tablet Take 2 Tabs by mouth every 4 hours as needed for Pain. 50 Tab 03/31/2020 0 polyethylene glycol 3350 (MIRALAX) 17 gram packet Take 17 g by mouth daily as needed for Other. 03/30/2020 0 senna (SENOKOT) 8.6 mg tablet Take 1 Tab by mouth 2 times daily as needed (Constipation ). 03/30/2020 4 pantoprazole (PROTONIX) 40 mg tablet Take 1 Tab by mouth daily for 30 days. 30 Tab 03/31/2020 0 melatonin 5 mg tablet Take 1 Tab by mouth at bedtime. 03/30/2020 0 acetaminophen (TYLENOL) 325 mg tablet Take 2 Tabs by mouth every 4 hours as needed for Pain. 03/30/2020 0 enoxaparin (LOVENOX) 60 mg/0.6 mL injection Inject 50 mg into the skin every 12 hours for 30 days. 60 Syringe 03/30/2020 0 documented in this encounter Discharge Disposition Disposition Code Departure Means Destination Home-Health Care [facility] Home documented in this encounter Progress Notes * Nelson Machado - 03/31/2020 1100 EDT [facility] - Inpatient Rehab Unit Discharge Planning Communication Tool Discharge Location and Caregiver: to her own apartment, with her SO Ever Linda will move in, and will assist from her brother and sister, in order to have 24 hour care as needed. Isamar. 03/03 Follow-Up Therapy Services: [facility] home health. Isamar. 03/03 Discharge Equipment Needs: for DME needs. 03/03 03/28: RW requested from [facility]. Ismaar. @ 1600 Pharmacy for Discharge Medications: ok to use [facility] pharm at discharge. 03/03 * Lula Hester OT - 03/31/2020 1100 EDT [facility] Rehabilitation Therapy Inpatient Rehabilitation [facility] Occupational Therapy Contact Note Date of Service: 03/31/2020 Phoned pt's home to follow up on OT discharge recommendations and [facility] was full. [facility] today since the pt's significant other had not purchased her bathroom equipment and OT called to follow up in the event that there were additional questions. Phoned [facility] and spoke with Tayler Tavares RN to fill her in so they can follow up. Also faxed OT d/c recommendations. Lula Hester OT, 03/31/2020, 15:24 * Isamar Angel - 03/31/2020 1047 EDT CM discharge note Pt's SO Ever is here for caregiver education. Education went well, and py is being discharged home today. She will have follow up with [facility], for RN, OT, PT, ANESTHESIOLOGY PHYSICIAN ASSISTANT and SW Pt's sister is awaiting guardianship. She will follow up with Home health for SSDI application and LTC medicaid application. RW was obtained from [facility]. Shower chair was obtained from Jaylon Clayton. Lovenox education with RN completed. Ever already picked up Lovenox from the pharmacy and Pantoprazole. He will picking machine operator helper all the over the counter meds at their local pharmacy. Pt is excited to be going home today Isamar Downs RN CM * Oliva Martinez, [facility]-ANESTHESIOLOGY PHYSICIAN ASSISTANT - 03/31/2020 0915 EDT Speech-Language Pathology Daily and Discharge Note ANESTHESIOLOGY PHYSICIAN ASSISTANT Diagnosis: Aphasia Medical Diagnosis: Cerebral venous thrombosis and resultant intraparenchymal hemorrhage in the leftfrontotemporal area Date of Onset: 02/14/20 Date of Referral: 03/02/20 Subjective/Objective SUBJECTIVE: When should we schedule our practice times at home? (question from Ever re: home practice) Thank you for being so helpful. - Ynes OBJECTIVE: Date of Service: 03/31/2020 Start Time: 09 Total Therapy minutes: 15 minute(s) patient/caregiver education Patient/caregiver education was provided today regarding discharge planning and questions were addressed. Ever and Ynes both verbalized understanding and I provided them with my contact informationshould they have any questions moving forward. Current Treatment Objectives: Auditory Comprehension: Goal #1: Patient will identify pictures that match auditory presentation of simple sentences in a visual field of 4-6 with >80% accuracy provided minimal cues from the clinician. 5: Session 1 - Ynes identifies pictures that match auditory presentation of simple sentences in a visual field of 4-6 with 86% accuracy provided maximum visual, verbal and gestural cues for information processing, active listening and repetition. 03/28: Session 1- Ynes identifies pictures that match auditory presentation of simple sentences teresa visual field of 4-6 with 80% accuracy provided moderate visual, verbal and gestural cues for information processing, active listening and repetition. Session 2- Ynes identifies pictures that match auditory presentation of simple sentences in a visual field of 4-6 with 80% accuracy provided minimal visual, verbal and gestural cues for information processing, active listening and repetition. 5: Session 1- Ynes identifies pictures that match auditory presentation of simple sentences teresa visual field of 4-6 with 25% accuracy provided mod-max visual, verbal and gestural cues for information processing, active listening and repetition. 5: Session 1- Ynes identifies pictures that match auditory presentation of simple sentences teresa visual field of 4-6 with 43% accuracy provided mod-max visual, verbal and gestural cues for information processing, active listening and repetition. Goal #2: Patient will answer simple yes/no questions with >80% accuracy provided fewer than 2 repetitions of the question. 03/23: Session 1- Patient answers simple yes/no questions with 40% accuracy provided fewer than 2 repetitions of the question. 1. 6- Error: Inaccurate attempt at the task item 0 repetitions 2. 13- Complete-delayed: Accurate, responsive, complete or complex, delayed 1 repetitions 3. 13- Complete-delayed: Accurate, responsive, complete or complex, delayed 0 repetitions 4. 15- Complete: accurate, responsive, complete, prompt, efficient 0 repetitions 5. 13- Complete-delayed: Accurate, responsive, complete or complex, delayed 0 repetitions 6. 6- Error: Inaccurate attempt at the task item 0 repetitions 7. 6- Error: Inaccurate attempt at the task item 1 repetitions 8. 6- Error: Inaccurate attempt at the task item 2 repetitions 9. 6- Error: Inaccurate attempt at the task item 0 repetitions 10. 6- Error: Inaccurate attempt at the task item 0 repetitions 5/: Session 2- Patient answers simple yes/no questions with 45% accuracy provided fewer than 2 repetitions of the question. 03/29: Session 2- Patient answers simple yes/no questions with 64% accuracy provided fewer than 2 repetitions of the question. /: Session 1- Patient answers simple yes/no questions with 60% accuracy provided fewer than 2 repetitions of the question. Goal #3: Patient will follow simple 1-step commands related to functional environment with >70% accuracy provided moderate verbal/tactile/visual cues in order to increase functional integration into environment. 03/09: Session 2- Patient follows simple 1-step commands related to environment with 0% accuracy independently. Accuracy increases to 90% accuracy following a model by the clinician with slowed auditory presentation of directions. 03/10: Session 1- Patient follows simple 1-step commands related to environment with 0% accuracy independently. Accuracy increases to 90% accuracy following a model by the clinician with slowed auditory presentation of directions. 03/12: Session 1- Patient follows simple 1-step commands related to environment with 0% accuracy independently. Accuracy increases to 62% accuracy following a model by the clinician with slowed auditory presentation of directions. 03/14: Session 2- Patient follows simple 1-step commands related to environment with 100% accuracy following a model by the clinician with slowed auditory presentation of directions. 03/15: / session: Patient followed 1 step commands in the context of therapy tasks today giveninitial demonstration. 03/16: Session 2- Patient follows simple 1-step commands related to environment with 90% accuracy following a model by the clinician with slowed auditory presentation of directions. 03/17: Session 1- Patient follows simple 1-step commands related to environment with 100% accuracy following a model by the clinician with slowed auditory presentation of directions. Patient completed1 of the commands independently without a model from the clinician today. 03/18: Session 1: Followed 2/10 simple 1 step commands independently. Patient followed ANESTHESIOLOGY PHYSICIAN ASSISTANT model with 100% accuracy. 03/19: Session 1: Followed 4/10 simple one step commands independently. Followed ANESTHESIOLOGY PHYSICIAN ASSISTANT model with 90% accuracy (blow a kiss, look out the window, big smile) 03/21: Followed 6/6 simple one-step commands given clinical model. Upon delayed repetition of the same commands, patient followed 3/6 simple one-step commands given additional repetition. 03/22: Session 1- Patient independently follows 1-step directions with 20% accuracy. Accuracy improves to 90% following a model by the clinician. 03/23: Session 1- Patient independently follows 1-step directions with 30% accuracy. Accuracy improves to 100% following a model by the clinician. 03/24: Session 1- Patient follows 1-step directions (adjective + noun) using the [employer] Comprehension ryne on the iPad with 28% accuracy provided maximum repetitions and slowed presentation. 03/28: Session 2- Patient follows 1-step directions (adjective + noun) using the [employer] Comprehension ryne on the iPad with 83% accuracy provided maximum repetitions and slowed presentation. 03/29: Session 2- Patient follows 1-step directions (adjective + noun) using the [employer] Comprehension ryne on the iPad with 40% accuracy provided maximum repetitions and slowed presentation. 03/30: Session 1- Patient follows 1-step directions with 50% accuracy provided moderate visual, verbal and gestural cues for demonstration, information processing and repetition. Expressive Language: Goal #1: Patient will recite automatic speech tasks given moderate cues with >70% accuracy. 03/08: Session 1- Patient recites automatic speech tasks with the clinician. See results below: 1-10: 100% accuracy following a model The Alphabet: Unable to perform in unison Months of the Years: Attempted to have patient repeat each month after the clinician: November, December, (jargon), (jargon), , June, April medication, June compation, sincation medication,seegus, French, lessonagus Musa, Decemegas 03/09: Session 1- Patient recites automatic speech tasks with the clinician. See results below: 1-10: 100% accuracy following a starter cue one... The Alphabet: T1: A, me, S, d, 8, q, A, me, d, ec, q, g, h, eed, h ; T2: Patient was able to achieve 50% in unison with the clinician but eventually perseverated on w Days of the Week: Patient perseverated on w, k despite max cues, models, and attempts to perform in unison Session 2- Patient recites automatic speech tasks with the clinician. See results below: 1-10: 80% accuracy following a repetition of the instructions; 80% accuracy in trial 2 following a repetition of the instructions. The Alphabet: A, 7 you mean? following max cues and models Days of the Week: Patient perseverated on w, k despite max cues, models, and attempts to perform in unison 03/10: Session 1- Patient recites automatic speech tasks with the clinician. See results below: 1-10: 100% accuracy The Alphabet: a, q, q, jews, each, l, l, elf Days of the Week: w, q, w, q, w, q, l, q, l, q 03/12: Session 2- Patient recites automatic speech tasks with the clinician. See results below: 1-10: 90% accuracy The Alphabet: l, n, h, stomich, a, m, h, m, etch, is it etch? Days of the Week: elmen, elmen threemen, riley three hundred, h, h, eight? No, stomach 03/14: Session 2- Patient recites automatic speech tasks with the clinician. See results below: 1-10: 90% accuracy Days of the Week: feminal, lessons, lezimen... 03/16: Session 1- Patient recites automatic speech tasks with the clinician. See results below: 1-10: 0% accuracy Days of the Week: drama, bever, mener, sever... 03/17: Session 1- Patient recites automatic speech tasks with the clinician. See results below: 1-10: 100% accuracy Days of the Week: Saturday, Saturday, Wender, Thunder, Wender, Sender, Fender when repeating each day individually following a model by the clinician. 03/18: Session 1: Counting 1-10 Trial one: 04/03. Trial Two: 07/06 (Eight, Ninth, Tenth, Eleventh, Twelfth - Is that what you want? I got lost. 03/19: Session 1: Counting 1-10 at 90% accuracy, Days of the week - 03/01 03/21: Patient recites automatic sequences with the following accuracy: Counting 1-10: 08/04 (error: ten-hundred) Days of the week: 01/01 (perseveration on hundred e.g., nine one hundred). Following break and spontaneous production of Saturday: 05/31 03/22: Session 1- Days of the week: T1- 01/29 provided moderate visual and verbal cues; T2- 03/01provided moderate visualand verbal cues 03/23: Session 1- Patient recites automatic speech tasks with the clinician. See results below: 1-10: 100% accuracy Days of the Week: T1- ,, , , , , Saturday (using max visual cues) T2- Saturday, , , , , Saturday, Saturday (using max visual cues) 03/24: Session 2- Patient recites automatic speech tasks with the clinician. See results below: Counting 1-30: 90% accuracy Days of the Week: , Saturday, Saturday, , Saturday, Saturday, Wednesday 03/28: Session 1- Demonstrated cues for eliciting automatic sequences for Ever (patient's SO) as a part of patient/caregiver education. Ever verbalized understanding. 03/29: Session 2- Patient recites automatic speech tasks with the clinician. See results below: Counting 1-30: Patient counted 1-13 independently and then began skipping around with paraphasias present. Days of the Week: one, two, q, a, et, q, s, a 03/30: rstanding. 03/29: Session 1- Patient recites automatic speech tasks with the clinician. See results below: Counting 1-30: Patient counted 1-11 independently and then began to have paraphasias and neologisms. Days of the Week: , , Saturday, Saturday, Saturday, Saturday, Saturday Goal #2: Patient will name objects (real or pictured) to confrontation with >50% accuracy provided maximum verbal cues. Probe: naming an object from a fo2 multiple choice- 20% accuracy (patient struggling with repeatingthe words, producing neologisms or paraphasias) 03/15: 2nd session: Repeating name of pictured object (in spontaneous context) in the context of a written expression task: ~50% accuracy (with partial credit for spelling a word out loud accurately!) 1. 6 2. 6 3. 15 4. 15 5. 8* * spelled the word out loud correctly! 03/16: Session 1- Patient names real pictured objects to confrontation provided maximum cues (phonemic, semantic, cloze, repetition, etc.) with 0% accuracy. Target Response 1. Earth derb (max cues) 2. door dargis (max cues) 3. pants stargus (max cues) 4. boxing dargus (max cues) 5. taco targus (max cues) 03/19: Session 1: Confrontation naming of everyday color photographs 0/10 however it was noted that patient began using gestures independently with photos in 6/10 pictures (gestured hat, phone, wells, wrist watch, scissors and egg) Patient stated, I never do that before, it's fun! New Goal written. 03/21: Patient named objects in 0/5 trials due to perseveration on Stomach/Sunnik. Patient repeated names as detailed below. 03/22: Session 2- Patient names real pictured objects to confrontation provided maximum cues (phonemic, semantic, cloze, repetition, etc.) with 20% accuracy. Target Response 1. apple Basket, but its... Bicycle 2. hat askit 3. tennis Not bene, sineck 4. pillow wash 5. hand That's a nasgul. 6. horse mushick 7. helmet bicycle 8. paper hanger Oh that's um... mailed 9. stomach stomach 10. squirrel Squirrel (phonemic cue provided) 03/23: Session 1- Patient names real pictured objects to confrontation provided maximum cues (phonemic, semantic, cloze, repetition, etc.) with 0% accuracy. Target Response 1. sun Mike (imitation: sun, sund) 2. road caniger (imitation: road) 3. skiing NR (imitation: sunca) 4. tie Skrio, sksean (imitation: Saturday) 03/24: Session 2- Patient names real pictured objects to confrontation provided maximum cues (phonemic, semantic, cloze, repetition, etc.) with 0% accuracy. Target Response 1. arm Stomach 2. dress Stomach or mistic 3. island mergic 03/25: Session 1- Patient names real pictured objects to confrontation provided maximum cues (phonemic, semantic, cloze, repetition, etc.) with 17% accuracy. Errors today were more closely related to target words. Target Response Error Type 1. zipper stomach perseveration 2. dog paws Semantic paraphasia 3. bed Dog, desk Perseveration, semantic paraphasia 4. brain suck Semantic paraphasia 5. fish stomach perseveration 6. sandwich sandwich - 03/26: Patient named pictured objects to confrontation given maximum cues with 0% accuracy today. Errors were characterized by neologisms and patient able to more closely approximate word given writtenword cues and following ANESTHESIOLOGY PHYSICIAN ASSISTANT model. 03/28: Session 1- Demonstrated cueing hierarchy for eliciting naming for Ever (patient's SO) as a partof patient/caregiver education. Ever verbalized understanding. Written information was provided. 03/30: Session 1- Patient names real pictured objects to confrontation provided maximum cues (phonemic, semantic, cloze, repetition, etc.) with 0% accuracy. Target Response Error Type 1. paper hanger rené Cuello neologism 2. affiliate marketing manager Cantwell, mariana neologism 3. snail Pankajble, g-e-i-b neologism 4. cheese nade neologism 5. hockey ketchurp neologism 6. shoulder sunerd Phonemic paraphasia 7. clock shuttered neologism 8. scarf snail perseveration 9. chair gutter perseveration 10. dentist No fun Semantic paraphasia Goal #3: Patient will repeat 1-2 syllable functional words, consistently across 3 trials, with >90% accuracy provided a visual model by the clinician. /: Session 1- Patient repeats 1-2 syllable functional words with 50% accuracy across 3 trials foreach word, provided a visual model by the clinician. Target Response Total 1. gloves Snug, snug, snug 0/3 2. chicken Shicken, shicken, shicken 0/3 3. salt Salt, salt, salt 3/3 4. Bat Back, bat, bat 2/3 5. window Window, window, window 3/3 6. customer quality specialist Plumic, plumbic, plumbic 0/3 7. watch Watch, watch, watch 3/3 8. dolphin Dolphin, dolphin, dolphin 3/3 9. pizza Ditta, ditta, pittop 0/3 10. helmet Helmet, elmet, elmit 1/3 03/28: Session 1- Demonstrated cues for eliciting repetition for Ever (patient's SO) as a part of patient/caregiver education. Ever verbalized understanding.Written information was provided. 03/29: Session 1- Patient repeats 1-2 syllable functional words with 67% accuracy across 3 trials foreach word, provided a visual model by the clinician. Target Response Total 1. table Explore, adoor, explore 0/3 2. lettuce Lettuce, lettuce, lettuce 3/3 3. fish Fish, bit, fish 2/3 4. hat Hat, hat, hodge 2/3 5. pillow Pillow, pillow, pillow 3/3 6. salt Salt, salt, fault 2/3 7. tape Delaney, delaney, delaney 0/3 8. kitchen Kitchen, kitchen, kitchen 3/3 9. short Short, short, short 3/3 10. toilet Koyet, toilet, toilet 2/3 5/6: Session 1- Patient repeats 1-2 syllable functional words with 73% accuracy across 3 trials foreach word, provided a visual model by the clinician. Target Response Total 1. sheep Sheep, sheep, sheep 3/3 2. sugar Sugar, sugar, s-u-s-d, shupard 2/3 3. ball Bard, bard, bar 0/3 4. Tongue Tongue, tongue, tongued 2/3 5. bucket Bucket, bucket, buckett 3/3 6. sweater Sweater, sweater, sweater 3/3 7. window Felch, alfredo, alfredo 0/3 8. bee Bee, bee, bee 3/3 9. beans Beans, beans, beans 01/25 10. bat Bat, bat, bat 01/25 Reading Comprehension: Goal #1: The patient will identify a written phrase from a field of 2, given an auditory model with80% accuracy. 5/1: Session 1- Patient identifies a written phrase from a field of 2 given an auditory model and picture with 100% accuracy provided slow presentation and repetitions. 5/4: Session 2- Patient identifies a written phrase from a field of 4 given an auditory model and picture with 50% accuracy provided slow presentation and repetitions. 5/6: Session 2- Patient identifies a written phrase from a field of 4 given an auditory model and picture with 70% accuracy provided slow presentation and repetitions. Goal #2: The patient will identify the written phrase to match a given object or picture with 80% accuracy in a field of 3. 5/5: Session 1- Patient identifies a written phrase from a field of 3 given an auditory model and picture with 100% accuracy provided slow presentation and repetitions. 5/6: Session 2- Patient identifies a written phrase from a field of 3 given an auditory model and apicture with 70% accuracy. Written Expression: Goal #1: Patient will write the name of the object/item, provided a picture and it's label verbally, with 80% accuracy provided moderate verbal/visual cues. 5/1: Session 2- Patient writes the name of the object/item, provided a picture and it's label verbally, with 30% accuracy provided moderate verbal/visual cues. Target Response 1. bed raul 2. sun hathaway 3. coffee j 4. tree tree 5. shoe shy, shoe 6. hand Hard, hand 7. sheep C, l, (sheep- provided first two letters) 8. turtle Turple 9. computer Cou, cup, cu 10. unicorn Uniy, uni 5/2: Written word retrieval given a picture (3-5 letter words): 40% accuracy, given initial letter cues or multiple choice, accuracy increased to 90% 1. 8 6. 6 2. 13 7. 8 3. 12 8. 13 4. 15 9. 8 5. 10 10. 8 5/4: Session 1- Patient spells the name of an object by writing, provided a picture and it's label verbally with 100% accuracy. Session 2- Patient spells the name of an object by writing, provided a picture with 90% accuracy provided minimal cues. 5/5: Session 1- Patient spells the name of an object by writing, provided a picture and multiple choice letters with 2 foils with 50% accuracy provided moderate cues. Session 2- Patient writes the name of the object/item, provided a picture and it's label verbally, with 40% accuracy provided minimal verbal/visual cues. Target Response 1. bed Stevie 2. donut doub 3. sheep Sheet, sheeb 4. turtle Tusc 5. hand hand 6. sun sun 7. tree tree 8. shoe Shop, vipul 9. box Next 10. coffee coffee 5/6: Session 2- Patient spells the name of an object by writing, provided a picture and scattered letter choices with no foils with 90% accuracy provided minimal cues. Probe: Patient types common nouns when given through auditory presentation with 10% accuracy independently. Target Response 1. day day 2. means nu 3. face face (copied) 4. idea Idea (copied) 5. time time (copied) 6. number number (copied) 7. world world (copied) 8. family family (copied) 9. men med (copied) 10. name name (copied) Augmentative Communication Goal #1: The patient will generate gestures representing basic needs with 80% accuracy in response to auditory or visual instruction. 03/19 Session 1: Patient generated gestures independently with photos in 6/10 pictures with 60% accuracy (hat, phone, wells, wrist watch, scissors and egg). 03/22: Session 2- Patient generated gestured independently with photo description task to augment communication effectively with ~75% effectiveness. 03/23: Session 2- Patient functionally communicates her basic wants and needs using gestures and provided maximum visual, verbal, gestural and contextual cues from the speech-language pathologist to Dr. Maria, her hematology doctor, via telemedicine consult. With this level of support, she was able to convey that she has been having increasing headaches for the past [address] Maria was able to communicate a plan to her regarding this involving further head imaging and medication dose management. Patient required written context words and simplified explanation with gestures of the overallencounter from the ANESTHESIOLOGY PHYSICIAN ASSISTANT. Going forward, family/caregiver education regarding communication facilitation and SCA for Ynes would be appropriate via Zoom/Facetime or in person if possible. 03/24: Session 2- Patient generated gestured independently within structured conversation to augmentcommunication effectively with ~75% effectiveness with this familiar communication partner. 03/29: Session 1- Patient generated gestured independently within structured conversation to augment communication effectively with ~80% effectiveness with this familiar communication partner. 1 communication breakdown occurs that patient is unable to augment through gestures and other forms of communication when the clinician arrives and patient wants to locate something in her closet but is unable to locate the item. She is unable to describe or augment communication for the clinician to determine the item in question. PATIENT/FAMILY EDUCATION: Patient/Family Education: Patient/family education was provided today including: discharge planning, home practice, cueing hierarchy, supported communication for aphasia (SCA), and questions were addressed. Topic: Patient/Family education and training was completed today including: the role of Speech-Language Pathology Aphasia questions were addressed Learner: patient and patient's SO Ever Method of Education: Verbal, Written and Demonstration Barriers to Learning/Education: fatigue, headache pain, and presence of language impairment Patient: was able to verbalize understanding of information Family: was able to verbalize understanding of information Patient/Family Goals: Patient states I want to get better. ?? Assessment /CLINICAL IMPRESSIONS: Ynes White is a female 50 y.o. 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 Ynes has made steady progress toward her goals during her month long inpatient rehabilitation stay. She has made steady gains in verbal expression, written expression, reading comprehension, and auditory comprehension. Ynes White currently presents with a moderate-severe expressive and receptive aphasia, most consistent with Wernicke's type but with some deviation from typical Wernicke's type presentation. Patient appears to be able to follow some basic 1-step commands effectively provided context, models, slow auditory presentation of information, and tactile cues as needed. Repetition, object naming, word fluency, sentence completion, and responsive speech are all impaired but steadily improving. She benefits from an Supported Communication for Adults with Aphasia (SCA) approach, provided gestures, drawings, and single written context words to support her auditory comprehension. Expressive language is characterized as fluent but mostly consists of word salad with many instances of jargon, neologisms, and paraphasias with occasional moments of intelligible discourse scattered throughout. Ynes also has a tendency to perseverate on certain words and neologisms, however, she is easily redirected from perseveration with short breaks and/or task switch. Expressive language errors increase when Ynes is fatigued, is in pain, or gets excited.Her awareness of errors within verbal expression is also improving steadily at the single word and short phrase level. Ynes spontaneously augments her communication with gestures, facial expressions, and intonation at this time, and this is judged to be effective ~80% of the time with a familiar communication partner. She is also demonstrating breakdowns in reading comprehension at the short sentence level and significant deficits in written expression at the word level, compounded by impaired auditory comprehension preventing writing to dictation and impaired naming preventing written naming. These deficits impact the patient's abilityto functionally communicate her wants, needs, and ideas and hold conversation. She presents with moderate-severe impairments in reading comprehension, however, she demonstrates some success with reading comprehension at the word and phrase level, which appears to be a relative strength compared to her auditory comprehension. She exhibits breakdown in reading comprehension at the sentence level. Ynes also demonstrates breakdown in written expression at the single word level however and her magdiel reness of these errors appears better than her awareness of errors in verbal expression. Written expression also is a relative strength for Ynes compared to expressive language and auditory comprehension. She also demonstrates relative strength in copying words and sentences, as well as writing numbers and the starting few letters of words independently. It has been determined that the patient demonstrates deficits that impact functioning in daily activities and hinder participation in life situations.??Patient currently requires assistance from others to communicate basic wants and needs and direct her medical care. Pt will continue to benefit from her needs being anticipated and simplified information presented to her. Information should be repeated and said in different ways, and augmented with pictures and gestures. The patient is demonstrating strengths in motivation and some intact basic expressive language skills, written expression, and reading comprehension which should be utilized during the patient's plan of care to maximize gains. Contextual factors that may impact the patient's ability to progress toward rehab goals include: severity of language impairment, tolerance level for therapy, pain, and anxiety. It is anticipated that following her discharge from inpatient rehabilitation that Ynes will require a communication partner trained in SCA and she will require ongoing intensive skilled speech-language pathology services in the home health setting followed by intensive skilled speech-language pathology services in the outpatient setting based on continued need. Based on the patient's rehab potential, motivation, prior level of function, and the contextual factors, the patient's prognosis is considered good. Functional Communication Measures ([place] [employer], 2002). The Functional Communication Measures (FCM???s) are a series of 7 point rating scales, ranging fromleast functional (Level 1) to most functional (Level 7). They have been developed by [employer] to describe different aspects of patient???s functional communication and swallowing abilities over the course of ANESTHESIOLOGY PHYSICIAN ASSISTANT intervention. ?? Spoken Language Comprehension Level 2: With consistent, maximal cues, the individual is able to follow simple directions, respond to simple yes/no questions in context, and respond to simple words orphrases related to personal needs. Spoken Language Expression Level 3: The communication partner must assume responsibility for structuring the communication exchange, and with consistent and moderate cueing, the individual can produce words and phrases that are appropriate and meaningful in context. Reading Level 4: The individual reads words and phrases related to routine daily activities, and words that are less familiar, longer, and more complex. The individual usually requires moderate cueing to read sentences of approximately 5-7 words. Writing Level 3: The individual writes single letters and common words, and with consistent moderate cueing, can write some words that are less familiar, longer, and more complex. ?? GOALS: Snf Goals: Projected Functional Communication Measures at discharge: Spoken Language Comprehension Level 4: Individual consistently responds accurately to simple yes/noquestions and occasionally follows simple directions without cues. Moderate contextual support is usually needed to understand complex sentences/messages. The individual is able to understand limited conversations about routine daily activities with familiar communication partners.- Not met. Spoken Language Expression Level 4: The individual is successfully able to initiate communication using spoken language in simple, structured conversations in routine daily activities with familiar communication partners. The individual usually requires moderate cueing, but is able to demonstrate use of simple sentences (i.e., semantics, syntax, and morphology) and rarely uses complex sentences/messages. - Not met. Reading Level 4: The individual reads words and phrases related to routine daily activities, and words that are less familiar, longer, and more complex. The individual usually requires moderate cueing to read sentences of approximately 5-7 words.- Met. Writing Level 3: The individual writes single letters and common words, and with consistent moderate cueing, can write some words that are less familiar, longer, and more complex.- Met. Short Term Goals: Auditory Comprehension: Goal #1: Patient will identify pictures that match auditory presentation of simple sentences in a visual field of 4-6 with >80% accuracy provided minimal cues from the clinician.- Not met. Goal #2: Patient will answer simple yes/no questions with >80% accuracy provided fewer than 2 repetitions of the question.- Not met. Goal #3: Patient will follow simple 1-step commands related to functional environment with >70% accuracy provided moderate verbal/tactile/visual cues in order to increase functional integration into environment. - Not met. ?? Expressive Language: Goal #1: Patient will recite automatic speech tasks given moderate cues with >70% accuracy.- Notmet. Goal #2: Patient will name objects (real or pictured) to confrontation with >50% accuracy provided maximum verbal cues.- Not met. Goal #3: Patient will repeat 1-2 syllable functional words, consistently across 3 trials, with >90% accuracy provided a visual model by the clinician.- Not met. ?? Reading Comprehension: Goal #1: The patient will identify a written phrase from a field of 2, given an auditory model with80% accuracy.- Not met. Goal #2: The patient will identify the written phrase to match a given object or picture with 80% accuracy in a field of 3. - Not met. Written Expression: Goal #1: Patient will write the name of the object/item, provided a picture and it's label verbally, with 80% accuracy provided moderate verbal/visual cues.- Not met. Augmentative Communication Goal #1: The patient will generate gestures representing basic needs with 80% accuracy in response to auditory or visual instruction.- Met. ?? Plan RECOMMENDATIONS: Discharge from skilled 1:1 speech-language pathology services in the inpatient rehabilitation setting. Patient will continue to benefit for further ANESTHESIOLOGY PHYSICIAN ASSISTANT intervention in the home health setting to addressaphasia management and intervention needs. ? Communication Access and Shared Decision Making Recommendations Please support communication access and shared decision making ability by doing the following: ?? Support Comprehension: ?? Have a pen and paper ready when communicating. ?? Please present information slowly and simplify. Augment with drawings, diagrams, gestures and pointing. ?? Ask one question at a time. ?? Have only one person speak at a time. ?? Environmental modifications:? Simplify the environment: ?? Carryover/Discharge??and Healthcare Decision making considerations ?? Will need family support for the successful carryover of discharge recommendations. ?? Currently comprehension of non-contextual information is a barrier Oliva Martinez MS CCC-ANESTHESIOLOGY PHYSICIAN ASSISTANT, MS, CCC-ANESTHESIOLOGY PHYSICIAN ASSISTANT 03/31/2020 11:34 * Jacqueline Gonsales, PT - 03/31/2020 0893 EDT [facility] Rehabilitation Therapy Inpatient Rehabilitation Center [facility] Physical Therapy Discontinue/Discharge Note Date of Service: 03/31/2020 PRECAUTIONS: fall risk, helmet when out of bed SUBJECTIVE: Yeah, I need you right by me when I'm walking to [facility] [place]. Pt excited to be going home. OBJECTIVE: Intervention Completed Today: Start time: 1000 Total Therapy Minutes: 60 minute(s) Interventions included: Therapeutic activities (4): Caregiver training: With pt and [facility] [place]. -Led skilled discussion re HH follow up services, D/C recommendations re mobility with close S withRW for ambulation and on stairs with emphasis on pt's decreased attention, and equipment -Adjusted height of pt's own RW -Pt ambulates ~120ft with RW and first with therapist providing close S at demonstration for caregiver, then with caregiver providing assist appropriately -Pt negotiates 4- 6.5 stairs with one rail and close S of therapist for demonstration to caregiver, then with caregiver providing assist appropraitely. Emphasis on standing lower than Marcella. -Pt and SO asking about bathroom equipment stating they did not obtain recommended items. This therapist talked with OT and CM regarding equipment and was able to obtain shower chair with seat for pt. SO has plan to picking machine operator helper grab bars and long handle shower head on the way home. -Car transfer: assisted pt and SO into vehicle with SO providing close S for W/C > car. Patient/Family Education: Topic: As above Learner: patient and caregiver Method: verbal Barriers to Learning: cognitive deficits of pt Outcome: verbalized understanding Team Communication: With primary PT re D/C planning via tx sheet. With OT, CM and PT clin lead re obtaining bathroom equipment. With nursing re readiness for D/C. Patient has been seen in physical therapy since 03/03/20 for Therapeutic exercise, Therapeutic activities, Gait Training, Neuromuscular re-education and Self- Care/Home management. In this reporting period 03/03/20 to 03/31/20 the patient has been seen by a physical therapist at a frequency of 1-2 times/day, at least 5 days/week, for 60 minutes/day. Relevant Objective Findings: AROUSAL, ATTENTION, AND COGNITION: Much improved arousal though intermittently requires seated rest breaks during sessions. Impaired sustained attention to task Oriented to person, situation, and place. Difficult to assess further due to expressive aphasia. Defer to OT/ANESTHESIOLOGY PHYSICIAN ASSISTANT for details. ?? CARDIOPULMONARY: 6 Min Walk - Distance (m): 220 meters ?? INTEGUMENTARY/ANTHROPOMETRIC CHARACTERISTICS: Craniectomy incision on L Lateral scalp appears to be well healed. PEG tube in abdomen. Head to toe not visualized as pt was fully clothed, defer to RN/MD notes for details.? RANGE OF MOTION AND JOINT INTEGRITY: ?? Lower Quarter: ??WFL ?? MUSCLE PERFORMANCE: ?? Lower Quarter: ?grossly 4/5 throughout. Not formally tested due to time constraints ?? SENSATION, REFLEXES, AND NERVE INTEGRITY: Light Touch Sensation: Upper Quarter:??unable to formally assess due to expressive and receptive aphasia and cog deficits Lower Quarter:?unable to formally assess due to expressive and receptive aphasia and cog deficits, indicates numbness on her right thigh/hip ?? NEUROMOTOR FUNCTION/DEVELOPMENT: Motor control:??able to isolate movements at all joints functionally.?? Movement patterns:?antalgic gait, hesitant movement at times though improved from eval and previous progress note Coordination:??no ataxia noted, intact heel to torre Speech/Communication/Oral motor control:??expressive aphasia, speech occasionally unintelligible, speech unrelated to topic of conversation at times though much improved from eval and previous progress note. Please refer to OT/ANESTHESIOLOGY PHYSICIAN ASSISTANT for detail OUTCOMES: Six Minute Walk Test (assessed 03/25/20) ^ (meters) 220 meters. This test assesses distance walked over 6 minutes as a sub-maximal test of aerobic capacity/endurance. Completed with no device today. At last assessment pt completed with RW. Age/gender normative values (Prasanna, 2001) Age Gender Range for age norms 2 standard deviations around the mean (meters) Range for age norms 2 standard deviations around the mean (feet) 20-40 Male [phone] Female [phone] 41-60 Male [phone] Female [phone] (Kirsten, 2007) Age Gender 95% CI (meters) 95% CI (feet) 60-69 Male [phone] Female [phone] 70-79 Male [phone] Female [phone] 80-89 Male [phone] Female [phone] ?? The minimal detectable change (MDC) for patients with acute stroke is 54 meters or 177 feet. (Iglesia,2008) ?? The minimal detectable change (MDC) for patients with chronic stroke is 36.6 meters or 120 feet or 13% improved from baseline measure. (Nichol, 2005) ?? Escobar Balance Scale (assessed 03/25/20) 41/56. This test is a 14-item objective measure designed to screen balance in adult populations. Balance is one domain of fall risk. As the score decreases, the patient may exhibit more balance deficits putting them at increased risk for falling. (Jessi, 2008, Maryana, 2004, Dee, 2016) ? Age/gender normative values for community dwelling elders (Margarito, 2002) Age Gender 95% CI 60-69 Male 55-56 60-69 Female 54-56 70-79 Male 52-56 70-79 Female 52-55 80-89 Male 51-54 80-89 Female 49-52 ?? The minimal detectable change (MDC-95%) for patients with acute stroke is 7. (Haider, 2001, Tiana, 2016) ?? The minimal detectable change (MDC-95%) for patients with chronic stroke is 5. (Debbie, 2012) OUTCOMES: PT Outcomes 03/04/2020 03/05/2020 03/07/2020 03/08/2020 5-Time [id number] (sec) ? 32 ?? 6 Min Walk - Distance (m) ?? 18.29 120.7 ?? Escobar Balance Score (n/56) ? 36 Gait Speed - Distance (M) 3.05 ? Gait Speed - Time (sec) 14 ? Gait Speed - Velocity (meters/sec) 0.22 ? PT Outcomes 03/11/2020 03/25/2020 5-Time [id number] (sec) 30 ?? 6 Min Walk - Distance (m) 106.07 220 Escobar Balance Score (n/56) ?? 41 Gait Speed - Distance (M) 10 ?? Gait Speed - Time (sec) 21 ?? Gait Speed - Velocity (meters/sec) 0.48 ? Balance, Mobility and Gait: Modified [place] Scale Score^ 3. This test categorizes level of functional independence with reference to pre-stroke activities. This rating means that the patient has moderate disability. (Bonit, 1988) Rating 0 = No symptoms 1 = No significant disability despite symptoms; able to carry out all usual duties and activities 2 = Slight disability; unable to carry out all previous activities, but able to look after own affairs without assistance 3 = Moderate disability; requiring some help, but able to walk without assistance 4 = Moderately severe disability; unable to walk without assistance and unable to attend to own bodily needs without assistance 5 = Severe disability; bedridden, incontinent, and requiring constant nursing care and attention 6 = Modified [place] Total Score: 3 Balance: ?? Sitting Balance Static: Independent Dynamic: Independent Standing balance Static: supervision without UE support Dynamic: supervision to reach outside KATHRYN without UE support Mobility: Bed Mobility: Sit->supine: independently with flat bed and no rails. Supine- >sit: independently with flat bed and no rails. ?? Transfers: Bed < > Chair: stand-step with supervision, cues and assistance of 1 ?? Wheelchair: Not a goal. ?? Gait: The patient ambulates with min contact assist of 1 using no device for 750' feet or with distant supervision with RW 1000'+. Gait deviations: increased toe out angle B, decreased stance time on L, occasionally demonstrates antalgic gait, decreased foot clearance B, upper body slightly guarded through improved since previous progress note, no reciprocal trunk rotation ?? Stairs: Patient negotiates with min contact assist of 1 up and down 20 stairs with 1 rails. ?? SELF-CARE, HOME MANAGEMENT, WORK, AND LEISURE: Defer to OT for details. ASSESSMENT: Ynes White has been participating in skilled physical therapy on acute rehab to address the physical therapy diagnosis of impaired mobility s/p L ICH s/p craniectomy. ?? The patient???s primary impairments include impaired cognition, reactive and anticipatory postural control (per Escobar) and Rhomberg, impaired Gait Speed, impaired activity tolerance and decreased endurance, pain in head and stomach, reflux and emesis at times, fatigue and intermittent decreased arousal.? 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 ?? Pt has made steady gains with therapy in the acute rehab setting. She has demonstrated MCID improvement in 6MWT indicating improved activity tolerance and endurance, she is still below age and genderrelated norms for balance per the ESCOBAR Balance test. She has been consistently participating in therapy demonstrating improvement in activity tolerance as compared to previous weeks. Pain and fatiguecontinue to be barriers however pt is doing well with shorter sessions spaced throughout the day with rest breaks in between. Therapy has been limited at times due to pt requiring ongoing scans/workup. It is anticipated that the pt will continue to progress well with skilled physical therapy service s to maximize safety and independence with functional mobility for safe return to the community. DISCONTINUE ALL UNMET GOALS secondary to D/C from acute rehab Short-Term Goals:??1 week 1. ??Pt will demonstrate stand step transfers with supervision x 1 to all sitting surfaces in her room. MET 2. ??Pt will ambulate 100-150' c supervision x 1 in order to work up to household distance ambulation. MET 3. ??Pt will tolerate completion of Escobar and 6MWT to establish baseline measures for progress. MET 4. ??Pt will complete four 6.5 stairs ascending and descending with B rails with min contact A x 1.??MET ?Long-Term Goals:??2-3 weeks?? 1. The patient will be able to perform stand step transfer c mod I in order to access all sitting surfaces. IN PROGRESS 2. The patient will be able to ambulate 100-250' covering household distances c mod I in order to access home environment. IN PROGRESS 3. The patient will be able to perform HEP independently with handout. - MET 4. Pt will demonstrate stable vital signs with all functional mobility noted above. MET 5. Pt and family with no further questions regarding diagnosis and POC. MET 6. Pt will demonstrate MCID improvement in??6MWT indicating improved ambulation endurance. MET 7. Pt will demonstrate MCID improvement in Escobar Balance Assessment indicating decreased fall risk.??IN PROGRESS PLAN: D/C Inpatient Physical Therapy Recommended Discharge Destination: Home with caregiver Recommended Discharge Services: Home health physical therapy Recommended Equipment Needs: Rolling walker Other recommendations: None Contact information: Pager: [phone] Jacqueline Gonsales PT 03/31/2020 12:30 * Aida Goodman DPT - 03/30/2020 1906 EDT [facility] Rehabilitation Therapy Inpatient Rehabilitation [facility] Physical Therapy Encounter Note Date of Service: 03/30/2020 , Activity: Level of risk of Harm B, Activity as tolerated, , Additional Precautions Information: LBone flap precautions (helmet OOB), SUBJECTIVE: I want to walk outside Pain: not rated OBJECTIVE: Start time: 1330 Total Therapy Minutes: 60 minute(s) Interventions completed today: Gait Training: ?? Ambulation outdoors with and without the RW 1000+' with occasional seated rest breaks due to fatigue. ?? Close supervision ambulating with RW around the hospital on tar/sidewalk with occasional cuing to adjust for uneven surfaces and cuing for attention to task/to center herself on the sidewalk as she has a tendency to veer to either side R>L. ?? Minimal assist ambulating on grass, up/down slight hills, negotiating curbs and ramps without anassistive device. Gait deviations: slow speed, bilateral increased external rotation, decreased arm swing Patient/Family Education: Topic: See above, use of RW and helmet when mobilizing, use of RW upon discharge, discharge planning. Learner: patient Method: verbal Barriers to Learning: none noted Outcome: verbalized understanding ASSESSMENT: Ynes tolerated therapy well today with focus on outdoor ambulation with and without an assistive device. Of note, pt continues to demonstrate improving activity tolerance and endurance. She requires min A to ambulate without an assistive device on uneven surfaces and close supervision with a RW. Pt verbalizes god understanding for the need to use her RW to maximize safety and independence and to reduce her risk for falls. PLAN: ?? Family training: use of walker, gait indoors/outdoors, stairs Contact information: Pager: [phone] Aida Goodman DPT, CLT 03/30/2020 19:07 * Jaden Rutherford MD - 03/30/2020 4349 EDT Physiatry Progress Note Admit Date: 03/02/2020 Hospital Day: LOS: 28 days Date of Service: 03/30/2020 Chief Complaint: Left temporoparietal hemorrhage status post decompressive craniectomy, setting of central venous thrombosis 02/14/2020 Subjective: No headache, no abdominal pain.. No shortness of breath or lightheadedness. Current Facility-Administered Medications: acetaminophen (TYLENOL) tablet 650 mg oral Q4H PRN aspirin chewable tablet 81 mg oral DAILY calcium carbonate (TUMS) 200 mg calcium (500 mg) per chewable tablet tablet,chewable 1 Tab oral QIDPRN docusate sodium (COLACE) capsule 100 mg oral BID PRN enoxaparin (LOVENOX) injection 50 mg subcutaneous Q12H melatonin tablet 5 mg oral QHS pantoprazole (PROTONIX) tablet 40 mg oral DAILY polyethylene glycol 3350 (MIRALAX) packet 17 g oral Daily PRN senna (SENOKOT) tablet 1 Tab oral BID PRN Objective/Physical Exam: VS: Patient Vitals for the past 8 hrs: BP Pulse Resp Temp 03/30/20 0652 123/76 72 14 35.8 ??C (96.4 ??F) Pain: Patient Vitals for the past 8 hrs: Numeric Pain Level (Scale 1-10) Asleep 03/30/20 1300 2 -- 03/30/20 1219 8 -- 03/30/20 0840 0 -- 03/30/20 0819 -- Reassessed, sleeping comfortably, RR WNL. 03/30/20 0708 -- Reassessed, sleeping comfortably, RR WNL. Weight: Weight : 78.8 kg (173 lb 11.2 oz) Glucose Readings (last 8 readings): No results for input(s): GLUCOSEFINGE in the last 72 hours. I&O: No intake or output data in the 24 hours ending 03/30/20 1401 Exam: Gen: Alert, pleasant, no distress HEENT: Left decompressive hemicraniectomy site slightly sunken. Surgical incision with small areas of eschar. Evidence of a right homonymous hemianopsia. No facial droop. Neck supple. Mucosal membranes are moist Skin: no rashes, continued eschar over the craniectomy incision. Cardiac: Cor RRR Pulmonary: clear to auscultation bilaterally Abdomen: normal bowel sounds, soft, nontender to palpation, gastrostomy tube site is closed. Musculoskeletal: no joint tenderness, deformity or swelling, no muscular tenderness noted, full range of motion without pain Neuro: Expressive greater than receptive aphasia affect: Alert Motor: No focal motor weakness. There is some relative right lower extremity weakness compared to the other extremities but does not appear clinically significant. Tone normal Reflexes: trace Sensation: No extinction no clear focal sensory loss Cerebellar: no tremors Labs: I have personally reviewed CBC: Lab Results Component Value Date WBC 5.16 03/21/2020 RBC 3.71 (L) 03/21/2020 HGB 11.6 03/21/2020 HCT 34.4 (L) 03/21/2020 MCV 93 03/21/2020 MCH 31.3 03/21/2020 MCHC 33.7 03/21/2020 PLT 220 03/21/2020 NEUTROABS 2.93 03/18/2020 BMP: Lab Results Component Value Date NA 134 (L) 03/21/2020 K 5.2 (H) 03/21/2020 CL 100 03/21/2020 CO2 26 03/21/2020 BUN 34 (H) 03/18/2020 CREATININE 0.65 03/21/2020 CALCIUM 7.5 (L) 03/18/2020 MG 1.7 03/02/2020 PHOS 4.6 (H) 03/07/2020 LABALBU 2.6 (L) 03/18/2020 Assessment/Problems: (update problem list daily as appropriate) Patient Active Problem List Diagnosis Date Noted ??? *(H)Left-sided nontraumatic intracerebral hemorrhage ([facility]) 03/02/2020 Priority: Medium Status post decompressive hemicraniectomy ??? Brain herniation ([facility]) 02/17/2020 Priority: Medium ??? Cerebral edema ([facility]) 02/17/2020 Priority: Medium ??? 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 (H)Cerebral venous thrombosis 02/14/2020 Priority: Medium ??? Encounter for insertion or removal of intrauterine contraceptive device 02/12/2020 Priority: Medium ??? Nicotine dependence, unspecified, uncomplicated 02/12/2020 Priority: Medium ??? Perimenopausal 02/12/2020 Priority: Medium ??? Post concussion syndrome 02/12/2020 Priority: Medium ??? Tobacco abuse 12/02/2012 Priority: Medium ??? Chronic low back pain 10/13/2012 Priority: Medium ??? Back pain 09/25/2012 Priority: Medium ??? Primary hypercoagulable state ([facility]) 03/23/2020 Class: Permanent Thrombosis Events A. 11/17/2019: [...] issue. Treatment and prevention A. Will need snf anticoagulation - agent TBD Plan: 1. Left frontal intraparenchymal hemorrhage: Status post decompressive craniectomy. Patient with residual mild right-sided weakness, significant expressive and receptive aphasia, dysphagia, right homonymous hemianopsia. Full PT, OT, ANESTHESIOLOGY PHYSICIAN ASSISTANT to address mobility, self care communication and swallowing fun ction. 24 hour rehab nursing for self care deficits. Continued intermittent headache, but no acute changes noted on recent CT scan of the head or MRI venogram. Helmet on when out of bed. Diet advanced to regular consistency. 2. 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 Evidence of left IJ, sigmoid and transverse sinuses as well. [facility] follow-up appreciated and she will remain on Lovenox for home and follow-up again in the [facility] clinic. 3. Right upper lobe pulmonary embolism, left upper extremity DVT: Now on therapeutic dose Lovenox. ?? 4. History of anxiety/depression: Monitor clinically. She has listed allergies to citalopram and duloxetine. 5. Nutrition: Regular consistency diet. Gastrostomy tube has been removed. Jaden Rutherford MD 03/30/2020 14:01 * Lula Hester, OT - 03/30/2020 1233 EDT [facility] Rehabilitation Therapy Inpatient Rehabilitation [facility] Occupational Therapy Discontinue/Discharge Note Date of Service: 03/30/2020 Precautions: Full code Bone flap precautions - helmet on when OOB Activity as tolerated SUBJECTIVE: I'm not going to ever be by myself. Excited about discharging home. OBJECTIVE: Interventions completed today: Start time: 1030 Total Therapy Minutes: 60 minute(s) Intervention included: Cognition Assessed orientation. Word substitutions due to aphasia, but pointed to location of information. Provided pt with simulation and after second repeat of simulation, pt dialed 911 without hesitationon phone. Demonstrated awareness that she could not provide her address. Functional writing: Wrote date with 1 extra number. Wrote address with all but omission of street name and zip code. Medication management: Pt was presented with a b.i.d. pill box. She located Saturday on the box and was provided with education on checking if previous days meds had been taken. She noted that had pills remaining. When asked about potential solution she correctly determined that she could not take the meds after the fact. Discussed that if concerned, could call pharmacy as a resource. She was able to identify that future days did not have all pills, set up as if one ran out, and ID that she would need to get more. Attempted to read prescription bottles and identified some very important information, but clearly needs A for med set up to avoid errors and supervision for medication adherence. She agrees and expresses that her boyfriend will assist. [employer] Therapy System was utilized to address visual processing speed/visual search. User paced sequence #s 1-20. Completed in 1:07 without cues. Ynes Balderass visual attention and processing speed was assessed using the Useful Field of View test. This is a computer administered and scored test that assesses central, divided and selectiveattention performance by determining the threshold of time needed (in milliseconds) for the person to perceive information. Central vision: 16 millliseconds ( normal= 0<30) Divided attention: 240 milliseconds( normal= 0< 100 ). Some difficulty. Selective attention: NT milliseconds( normal = 0< 350) Ynes's performance on this test placed was not stratified into a category because Selective attention was not assessed. On the divided attention subtest, when the distractor was on the right Ynes did not see it 8/9 trials. When the distractor was on the left and at midline, she located them with 100% accuracy. Provided education on functional relevance of suspected visual field deficit. Vital Signs: Not monitored this session. Patient/Family Education: Topic: D/C planning Safety awareness Functional implications of visual field deficit Need for assistance/supervision with medication management Learner: patient Method: verbal Barriers to Learning: language Outcome: verbalized understanding and reinforcement needed / plan: D/c instructions. Caregiver education was completed 03/28/20. Team Communication: With RN re: pt's need for supervision for medication management. RN will pass on for d/c education with nursing tomorrow. The patient has been seen in occupational therapy since 03/03/2020 for: Occupation Based Activity - Basic Activities of Daily Living, Occupation Based Activity - Instrumental Activities of Daily Living, Purposeful Activity, Preparatory Method - Cognitive Re-training and Patient/Family Education In this reporting period 03/25/2020 to 03/30/2020, the patient has been seen by an occupational therapist for: 5-6 days/week. Interventions have included: Occupation Based Activity - Basic Activities of Daily Living, Occupation Based Activity - Instrumental Activities of Daily Living, Purposeful Activity and Patient/Family Education Relevant Objective Findings: Body Functions and Performance Skills Cardiovascular/Respiratory Systems Function: vital signs have been recorded by nursing and stable with interventions. The pt had 2 episeds of presumed hypotension in the shower in OT on 03/25. Pt expresses feeling light headed at times and requests to sit down. Sensory Functions: Taken from 03/25/20 OT Progress note: Hearing:??grossly intact. ?? Vision screen was completed on 03/15/2020 - see note for details. Deficits noted in -ocular ROM -Pursuits -Saccadic (rapid) eye movements -vergence -visual harrell Visual harrell were assessed 03/29 and the pt demonstrated errors consistent with right visual field deficit. Discussed with Dr. Rutherford including recommendation for neuro ophthalmology referral. Neuromusculoskeletal and Movement Related Functions: From 03/25/20 OT Progress note: Range of motion: Pt has full active range of motion throughout bilateral upper extremities Strength: Pt has grossly 4-5/5 strength throughout bilateral upper extremities Barrel Raiser Strength^: This test measures strength of a person's personnel and payroll technician. ?? Average Barrel Raiser Strength 03/05/2020 Right (pounds) 21.67 Left (pounds) 31.33 ?? Age/gender based healthy normative values (Kirsten, 2006) Female 95% CI (pounds) 95% CI (pounds) Age Right Left 50 - 54 58.8 - 77.5 52.9 - 73.9 ?? Balance: No LOB in OT sessions, uses RW with supervision. Dynamic sitting balance is good. Skin and Related Structure Functions: closed crani incision. Voice and Speech Functions: Aphasia Mental Functions: Difficult to assess fully in OT due to aphasia. Pt is oriented to person and situation. She is ableto express some of her thoughts and uses gestures at times. Due to her aphasia her reading and writing skills are impacted which necessitates assistance with medication management and likely vice president financial. Ynes can point to orientation information but often when reading it aloud has word substitutions. Areas of Occupation and Performance Skills: Basic Activities of Daily Living: Feeding: Independent Grooming: Independent Bathing: Min contact A. Recommend sitting for entirety of shower. Had 2 episodes of light headedness in shower on 03/25/20 Upper Body Dressing: Independent Pants and Underwear: Supervision Footwear: Independent Toileting: Supervision Toilet Transfer: Supervision Tub/Shower Transfer: Supervision/min contact A Functional Mobility: Has been on distant supervision trial in room for 2 days with RW and has had no issues. Has ambulated throughout Rehab unit in OT with RW and no collisions or LOB. Recommending initial supervision for functional mobility until safe consistent routines are established. Instrumental Activities of Daily Living: Laundry: Verbal cues to operate machine. General sequencing of task was intact. Contact guard A to carry laundry without assistive device. Phone skills: with a scenario presented twice, the pt identified that she would need to dial 911 and demonstrated awareness that she could not provide details if she needed to place the call. Stove top meal prep: Supervision. Required min contact for item retrieval but suspect that she has progressed to supervision. Medication management: Due to aphasia required repetition of requests, but once comprehended able to locate correct day and section of BID pill organizer. Able to ID problem and solution of missing meds in subsequent days. Able to partially comprehend basic dosage info on pill bottle. Recommend supervision for medication management and use of medication box to assist with adherence/accuracy. Spoke with RN who will ensure this is covered in nursing discharge education tomorrow. ASSESSMENT: Ynes White is a 50 y.o. female admitted 03/02/2020 secondary to self-care and mobility deficits s/p left temporoparietal hemorrhage with left hemicraniectomy. 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 Goal attainment was impacted by aphasia and the pt's continued need for supervision with mobility required to complete BADL. Ynes was fully participatory in OT sessions and presents with aphasia, impaired balance, suspected right visual fieldcut. Upper extremity function is adequate for BADL and has not been a focus of OT intervention. Cognitive assessment is impacted by aphasia. As best judged she is oriented to her current situation and solves problems that arise within BADL independently and with simple IADL with cues/supervision. Supervision is recommended initially for in home ambulation and completion of BADL, with closer supervision for shower transfer and bathing. Anticipate she will soon achieve a modified independent level of independence for most BADL once a safe consistent routine is established. She needs supervisionfor simple meal prep, and assistance for more complex IADL such as medication management, financialmanagement, community access. Ynes continues to be functioning far from her baseline level of function. She is discharging home with support from family and her boyfriend who was present for caregiver education with OT this week. She needs a shower chair, grab bars and a hand held shower which family plans to acquire and install. GOALS: Short Term Goals:?10 days ?? Appropriate use of call miranda??MET 03/25/2020 ?? Min assist for sequencing morning routine tasks??MET 03/15/2020 ?? Tolerate 60 min OT session??MET 03/15/2020 ?? Complete LB care with supervision only post set up??MET 03/15/2020 ?? Complete UB care with supervision only post set up??MET 03/15/2020 ?? Oriented x 3 using compensatory strategies??PROGRESSING 03/15/2020. MET Goals set 03/15/2020: ?? Pt will be independent with morning self care routine at an ambulatory level with Adaptive equipment for safety as needed. Discontinue ?? Pt will complete simple cold meal preparation with supervision for safety at an ambulatory levelwith adaptive equipment as needed. Discontinue ?? Pt will??complete dynavision testing with more than 50 hits as a measure of improved scanning toreturn to instrumental activities of daily living. Discontinue ?? Pt will complete shower activity with supervision for safety.Discontinue. (pt declined reassessment) ?? Pt will demonstrate independence with calling 911 for support if needed with medical emergency. Met by simulation 03/30/20 ?? Snf Goals:?for 03/30/2020 ?? Supervision to complete morning care routine. Met ?? Independent with medication management using pill box. Discontinue ? Pt will demonstrate proper safety awareness with self-care tasks. Met (helmet, RW) ? Complete simple hot meal prep with supervision. Discontinue ? Pt will demonstrate modified independence with communicating language issues to friends for addedsupport with functional communication. Discontinue ?? PLAN: Discontinue occupational therapy. Discharge Plan: Home with significant other Follow-up Services: Home health occupational therapy Discharge Equipment: Shower Chair Hand held shower Grab bars Pager: [phone] Lula Hester, JONATAN, 03/30/2020, 13:16 * Aida Goodman DPT - 03/30/2020 1014 EDT [facility] Inpatient Acute Rehabilitation Unit Durable Medical Equipment Prescription (Non-Wheelchair) Name: Ynes White Date of : 1970 Address: [address] [place] [id number] (home) Insurance: Payor[place] / Plan[place] / Product Type[place] / Referring Physician: Jaden Rutherford, * Primary Physician: Alejandrina Carrillo Medical Diagnosis: Patient Active Problem List Diagnosis Code ??? Back pain M54.9 ??? Chronic low back pain M54.5, G89.29 ??? Encounter for insertion or removal of intrauterine contraceptive device Z30.9 ??? Nicotine dependence, unspecified, uncomplicated F17.200 ??? Perimenopausal N95.1 ??? Post concussion syndrome F07.81 ??? Tobacco abuse Z72.0 ??? Cerebral venous sinus thrombosis G08 ??? Cerebral venous thrombosis G08 ??? Brain herniation (HCC-CMS) G93.5 ??? Cerebral edema (HCC-CMS) G93.6 ??? Left-sided nontraumatic intracerebral hemorrhage (HCC-CMS) I61.9 ??? Primary hypercoagulable state (HCC-CMS) D68.59 Height: 170.2 cm (67) Weight : 78.8 kg (173 lb 11.2 oz) Body mass index is 27.21 kg/m??. Type of Equipment Prescribed: Rolling Walker Prescription Start Date: 03/30/2020 Purpose of Equipment: to provide stability during transfers and ambulation to maximize safety and independence with functional mobility and ADLs. Medical Necessity: yes Patient Functional Level: distant supervision with transfers and ambulating household distances with a RW Duration needed: 99+ Therapist recommending equipment: AIDA GOODMAN DPT 03/30/2020 10:[address] Neal Moscoso: [id number] Dr Jaden Rutherford: [id number] Dr Vashti [address]: [id number] Cosigned by Jaden Rutherford MD at 03/30/2020 10:59 EDT * Oliva Martinez, CCC-ANESTHESIOLOGY PHYSICIAN ASSISTANT - 03/30/2020 0808 EDT Speech-Language Pathology Daily and Current Progress Note ANESTHESIOLOGY PHYSICIAN ASSISTANT Diagnosis: Aphasia Medical Diagnosis: Cerebral venous thrombosis and resultant intraparenchymal hemorrhage in the leftfrontotemporal area Date of Onset: 02/14/20 Date of Referral: 03/02/20 Subjective/Objective SUBJECTIVE: Session 1- You try to be silly all day. Ooooh, I got it right. Session 2- I want some of those when I go home! (re: tacos) I'm ready to go home. That sounds willow (weird) to me. OBJECTIVE: Date of Service: 03/30/2020 Start Time: 1300 Total Therapy minutes: 30 minute(s) aphasia tx Second Session: Start Time: 1430 Total Therapy minutes: 30 minute(s) aphasia tx Current Treatment Objectives: Auditory Comprehension: Goal #1: Patient will identify pictures that match auditory presentation of simple sentences in a visual field of 4-6 with >80% accuracy provided minimal cues from the clinician. 5/: Session 1 - Ynes identifies pictures that match auditory presentation of simple sentences in a visual field of 4-6 with 86% accuracy provided maximum visual, verbal and gestural cues for information processing, active listening and repetition. 5/4: Session 1- Ynes identifies pictures that match auditory presentation of simple sentences teresa visual field of 4-6 with 80% accuracy provided moderate visual, verbal and gestural cues for information processing, active listening and repetition. Session 2- Ynes identifies pictures that match auditory presentation of simple sentences in a visual field of 4-6 with 80% accuracy provided minimal visual, verbal and gestural cues for information processing, active listening and repetition. 5/5: Session 1- Ynes identifies pictures that match auditory presentation of simple sentences teresa visual field of 4-6 with 25% accuracy provided mod-max visual, verbal and gestural cues for information processing, active listening and repetition. 5/6: Session 1- Ynes identifies pictures that match auditory presentation of simple sentences teresa visual field of 4-6 with 43% accuracy provided mod-max visual, verbal and gestural cues for information processing, active listening and repetition. Goal #2: Patient will answer simple yes/no questions with >80% accuracy provided fewer than 2 repetitions of the question. 03/23: Session 1- Patient answers simple yes/no questions with 40% accuracy provided fewer than 2 repetitions of the question. 1. 6- Error: Inaccurate attempt at the task item 0 repetitions 2. 13- Complete-delayed: Accurate, responsive, complete or complex, delayed 1 repetitions 3. 13- Complete-delayed: Accurate, responsive, complete or complex, delayed 0 repetitions 4. 15- Complete: accurate, responsive, complete, prompt, efficient 0 repetitions 5. 13- Complete-delayed: Accurate, responsive, complete or complex, delayed 0 repetitions 6. 6- Error: Inaccurate attempt at the task item 0 repetitions 7. 6- Error: Inaccurate attempt at the task item 1 repetitions 8. 6- Error: Inaccurate attempt at the task item 2 repetitions 9. 6- Error: Inaccurate attempt at the task item 0 repetitions 10. 6- Error: Inaccurate attempt at the task item 0 repetitions 03/28: Session 2- Patient answers simple yes/no questions with 45% accuracy provided fewer than 2 repetitions of the question. 03/29: Session 2- Patient answers simple yes/no questions with 64% accuracy provided fewer than 2 repetitions of the question. 03/30: Session 1- Patient answers simple yes/no questions with 60% accuracy provided fewer than 2 repetitions of the question. Goal #3: Patient will follow simple 1-step commands related to functional environment with >70% accuracy provided moderate verbal/tactile/visual cues in order to increase functional integration into environment. 03/09: Session 2- Patient follows simple 1-step commands related to environment with 0% accuracy independently. Accuracy increases to 90% accuracy following a model by the clinician with slowed auditory presentation of directions. 03/10: Session 1- Patient follows simple 1-step commands related to environment with 0% accuracy independently. Accuracy increases to 90% accuracy following a model by the clinician with slowed auditory presentation of directions. 03/12: Session 1- Patient follows simple 1-step commands related to environment with 0% accuracy independently. Accuracy increases to 62% accuracy following a model by the clinician with slowed auditory presentation of directions. 03/14: Session 2- Patient follows simple 1-step commands related to environment with 100% accuracy following a model by the clinician with slowed auditory presentation of directions. 03/15: / session: Patient followed 1 step commands in the context of therapy tasks today giveninitial demonstration. 03/16: Session 2- Patient follows simple 1-step commands related to environment with 90% accuracy following a model by the clinician with slowed auditory presentation of directions. 03/17: Session 1- Patient follows simple 1-step commands related to environment with 100% accuracy following a model by the clinician with slowed auditory presentation of directions. Patient completed1 of the commands independently without a model from the clinician today. 03/18: Session 1: Followed 2/10 simple 1 step commands independently. Patient followed ANESTHESIOLOGY PHYSICIAN ASSISTANT model with 100% accuracy. 03/19: Session 1: Followed 4/10 simple one step commands independently. Followed ANESTHESIOLOGY PHYSICIAN ASSISTANT model with 90% accuracy (blow a kiss, look out the window, big smile) 03/21: Followed 6/6 simple one-step commands given clinical model. Upon delayed repetition of the same commands, patient followed 3/6 simple one-step commands given additional repetition. 03/22: Session 1- Patient independently follows 1-step directions with 20% accuracy. Accuracy improves to 90% following a model by the clinician. 03/23: Session 1- Patient independently follows 1-step directions with 30% accuracy. Accuracy improves to 100% following a model by the clinician. 03/24: Session 1- Patient follows 1-step directions (adjective + noun) using the [employer] Advanced Comprehension ryne on the iPad with 28% accuracy provided maximum repetitions and slowed presentation. /: Session 2- Patient follows 1-step directions (adjective + noun) using the [employer] Advanced Comprehension ryne on the iPad with 83% accuracy provided maximum repetitions and slowed presentation. 5/: Session 2- Patient follows 1-step directions (adjective + noun) using the [employer] Advanced Comprehension ryne on the iPad with 40% accuracy provided maximum repetitions and slowed presentation. 5/: Session 1- Patient follows 1-step directions with 50% accuracy provided moderate visual, verbal and gestural cues for demonstration, information processing and repetition. Expressive Language: Goal #1: Patient will recite automatic speech tasks given moderate cues with >70% accuracy. 03/08: Session 1- Patient recites automatic speech tasks with the clinician. See results below: 1-10: 100% accuracy following a model The Alphabet: Unable to perform in unison Months of the Years: Attempted to have patient repeat each month after the clinician: November, December, (jargon), (jargon), stomach, June, April medication, June compation, sincation medication,seegus, French, lessonagus Musa, Decemegas 03/09: Session 1- Patient recites automatic speech tasks with the clinician. See results below: 1-10: 100% accuracy following a starter cue one... The Alphabet: T1: A, me, S, d, 8, q, A, me, d, ec, q, g, h, eed, h ; T2: Patient was able to achieve 50% in unison with the clinician but eventually perseverated on w Days of the Week: Patient perseverated on w, k despite max cues, models, and attempts to perform in unison Session 2- Patient recites automatic speech tasks with the clinician. See results below: 1-10: 80% accuracy following a repetition of the instructions; 80% accuracy in trial 2 following a repetition of the instructions. The Alphabet: A, 7 you mean? following max cues and models Days of the Week: Patient perseverated on w, k despite max cues, models, and attempts to perform in unison 03/10: Session 1- Patient recites automatic speech tasks with the clinician. See results below: 1-10: 100% accuracy The Alphabet: a, q, q, jews, each, l, l, elf Days of the Week: w, q, w, q, w, q, l, q, l, q 03/12: Session 2- Patient recites automatic speech tasks with the clinician. See results below: 1-10: 90% accuracy The Alphabet: l, n, h, stomich, a, m, h, m, etch, is it etch? Days of the Week: elmen, elmen threemen, riley three hundred, h, h, eight? No, stomach 03/14: Session 2- Patient recites automatic speech tasks with the clinician. See results below: 1-10: 90% accuracy Days of the Week: feminal, lessons, lezimen... 03/16: Session 1- Patient recites automatic speech tasks with the clinician. See results below: 1-10: 0% accuracy Days of the Week: drama, bever, mener, sever... 03/17: Session 1- Patient recites automatic speech tasks with the clinician. See results below: 1-10: 100% accuracy Days of the Week: Saturday, Saturday, Wender, Thunder, Wender, Sender, Fender when repeating each day individually following a model by the clinician. 03/18: Session 1: Counting 1-10 Trial one: 04/03. Trial Two: 07/06 (Eight, Ninth, Tenth, Eleventh, Twelfth - Is that what you want? I got lost. 03/19: Session 1: Counting 1-10 at 90% accuracy, Days of the week - 03/01 03/21: Patient recites automatic sequences with the following accuracy: Counting 1-10: 08/04 (error: ten-hundred) Days of the week: 01/01 (perseveration on hundred e.g., nine one hundred). Following break and spontaneous production of Saturday: 05/31 03/22: Session 1- Days of the week: T1- 01/29 provided moderate visual and verbal cues; T2- 03/01provided moderate visualand verbal cues 03/23: Session 1- Patient recites automatic speech tasks with the clinician. See results below: 1-: 100% accuracy Days of the Week: T1- [place],er, , nunder, huster, , Saturday (using max visual cues) T2- Saturday, , , , , Saturday, Saturday (using max visual cues) 03/24: Session 2- Patient recites automatic speech tasks with the clinician. See results below: Counting -: 90% accuracy Days of the Week: , Saturday, Saturday, , Saturday, Saturday, Wednesday 03/28: Session 1- Demonstrated cues for eliciting automatic sequences for Ever (patient's SO) as a part of patient/caregiver education. Ever verbalized understanding. 03/29: Session 2- Patient recites automatic speech tasks with the clinician. See results below: Counting 1-30: Patient counted 1-13 independently and then began skipping around with paraphasias present. Days of the Week: one, two, q, a, et, q, s, a 03/30: rstanding. 03/29: Session 1- Patient recites automatic speech tasks with the clinician. See results below: Counting 1-30: Patient counted 1-11 independently and then began to have paraphasias and neologisms. Days of the Week: , , Saturday, Saturday, Saturday, Saturday, Saturday Goal #2: Patient will name objects (real or pictured) to confrontation with >50% accuracy provided maximum verbal cues. Probe: naming an object from a fo2 multiple choice- 20% accuracy (patient struggling with repeatingthe words, producing neologisms or paraphasias) 03/15: 2nd session: Repeating name of pictured object (in spontaneous context) in the context of a written expression task: ~50% accuracy (with partial credit for spelling a word out loud accurately!) 1. 6 2. 6 3. 15 4. 15 5. 8* * spelled the word out loud correctly! 03/16: Session 1- Patient names real pictured objects to confrontation provided maximum cues (phonemic, semantic, cloze, repetition, etc.) with 0% accuracy. Target Response 1. Earth derb (max cues) 2. door dargis (max cues) 3. pants stargus (max cues) 4. boxing dargus (max cues) 5. taco targus (max cues) 03/19: Session 1: Confrontation naming of everyday color photographs 0/10 however it was noted that patient began using gestures independently with photos in 6/10 pictures (gestured hat, phone, wells, wrist watch, scissors and egg) Patient stated, I never do that before, it's fun! New Goal written. 03/21: Patient named objects in 0/5 trials due to perseveration on Stomach/Sunnik. Patient repeated names as detailed below. 03/22: Session 2- Patient names real pictured objects to confrontation provided maximum cues (phonemic, semantic, cloze, repetition, etc.) with 20% accuracy. Target Response 1. apple Basket, but its... Bicycle 2. hat askit 3. tennis Not bene, sineck 4. pillow wash 5. hand That's a nasgul. 6. horse mushick 7. helmet bicycle 8. paper hanger Oh that's um... mailed 9. stomach stomach 10. squirrel Squirrel (phonemic cue provided) 03/23: Session 1- Patient names real pictured objects to confrontation provided maximum cues (phonemic, semantic, cloze, repetition, etc.) with 0% accuracy. Target Response 1. sun Mike (imitation: sun, ) 2. road caniger (imitation: road) 3. skiing NR (imitation: ) 4. tie Skunday, skumer (imitation: Saturday) 03/24: Session 2- Patient names real pictured objects to confrontation provided maximum cues (phonemic, semantic, cloze, repetition, etc.) with 0% accuracy. Target Response 1. arm Stomach 2. dress Stomach or mistic 3. island mergic 03/25: Session 1- Patient names real pictured objects to confrontation provided maximum cues (phonemic, semantic, cloze, repetition, etc.) with 17% accuracy. Errors today were more closely related to target words. Target Response Error Type 1. zipper stomach perseveration 2. dog paws Semantic paraphasia 3. bed Dog, desk Perseveration, semantic paraphasia 4. brain suck Semantic paraphasia 5. fish stomach perseveration 6. sandwich sandwich - 03/26: Patient named pictured objects to confrontation given maximum cues with 0% accuracy today. Errors were characterized by neologisms and patient able to more closely approximate word given writtenword cues and following ANESTHESIOLOGY PHYSICIAN ASSISTANT model. 03/28: Session 1- Demonstrated cueing hierarchy for eliciting naming for Ever (patient's SO) as a partof patient/caregiver education. Ever verbalized understanding. Written information was provided. 03/30: Session 1- Patient names real pictured objects to confrontation provided maximum cues (phonemic, semantic, cloze, repetition, etc.) with 0% accuracy. Target Response Error Type 1. rené Shields neologism 2. priest Waterman, mariana neologism 3. snail Esha, g-[id number]-[id number] neologism 4. cheese nade neologism 5. hockey ketchurp neologism 6. shoulder sunerd Phonemic paraphasia 7. clock shuttered neologism 8. scarf snail perseveration 9. chair gutter perseveration 10. dentist No fun Semantic paraphasia Goal #3: Patient will repeat 1-2 syllable functional words, consistently across 3 trials, with >90% accuracy provided a visual model by the clinician. 03/25: Session 1- Patient repeats 1-2 syllable functional words with 50% accuracy across 3 trials foreach word, provided a visual model by the clinician. Target Response Total 1. gloves Snug, snug, snug 0/3 2. chicken Shicken, shicken, shicken 0/3 3. salt Salt, salt, salt 3/3 4. Bat Back, bat, bat 2/3 5. window Window, window, window 3/3 6. customer quality specialist Plumic, plumbic, plumbic 0/3 7. watch Watch, watch, watch 3/3 8. dolphin Dolphin, dolphin, dolphin 3/3 9. pizza Ditta, ditta, pittop 0/3 10. helmet Helmet, elmet, elmit 103/28: Session 1- Demonstrated cues for eliciting repetition for Ever (patient's SO) as a part of patient/caregiver education. Ever verbalized understanding.Written information was provided. 03/29: Session 1- Patient repeats 1-2 syllable functional words with 67% accuracy across 3 trials foreach word, provided a visual model by the clinician. Target Response Total 1. table Explore, adoor, explore 0/3 2. lettuce Lettuce, lettuce, lettuce 3/3 3. fish Fish, bit, fish 2/3 4. hat Hat, hat, hodge 2/3 5. pillow Pillow, pillow, pillow 3/3 6. salt Salt, salt, fault 2/3 7. tape Delaney, delaney, delaney 0/3 8. kitchen Kitchen, kitchen, kitchen 3/3 9. short Short, short, short 3/3 10. toilet Koyet, toilet, toilet 2/3 5: Session 1- Patient repeats 1-2 syllable functional words with 73% accuracy across 3 trials foreach word, provided a visual model by the clinician. Target Response Total 1. sheep Sheep, sheep, sheep 3/3 2. sugar Sugar, sugar, s-u-s-d, shupard 2 3. ball Bard, bard, bar 03 4. Tongue Tongue, tongue, tongued 2 5. bucket Bucket, bucket, buckett 33 6. sweater Sweater, sweater, sweater /3 7. window Felch, alfredo, alfredo 03 8. bee Bee, bee, bee 01/25 9. beans Beans, beans, beans 01/25 10. bat Bat, bat, bat 01/25 Reading Comprehension: Goal #1: The patient will identify a written phrase from a field of 2, given an auditory model with80% accuracy. 5/1: Session 1- Patient identifies a written phrase from a field of 2 given an auditory model and picture with 100% accuracy provided slow presentation and repetitions. 5/4: Session 2- Patient identifies a written phrase from a field of 4 given an auditory model and picture with 50% accuracy provided slow presentation and repetitions. 5/6: Session 2- Patient identifies a written phrase from a field of 4 given an auditory model and picture with 70% accuracy provided slow presentation and repetitions. Goal #2: The patient will identify the written phrase to match a given object or picture with 80% accuracy in a field of 3. 5/5: Session 1- Patient identifies a written phrase from a field of 3 given an auditory model and picture with 100% accuracy provided slow presentation and repetitions. 5/6: Session 2- Patient identifies a written phrase from a field of 3 given an auditory model and apicture with 70% accuracy. Written Expression: Goal #1: Patient will write the name of the object/item, provided a picture and it's label verbally, with 80% accuracy provided moderate verbal/visual cues. 5/1: Session 2- Patient writes the name of the object/item, provided a picture and it's label verbally, with 30% accuracy provided moderate verbal/visual cues. Target Response 1. bed raul 2. sun hathaway 3. coffee j 4. tree tree 5. shoe shy, shoe 6. hand Hard, hand 7. sheep C, l, (sheep- provided first two letters) 8. turtle Turple 9. computer Cou, cup, cu 10. unicorn Uniy, uni /: Written word retrieval given a picture (3-5 letter words): 40% accuracy, given initial letter cues or multiple choice, accuracy increased to 90% 1. 8 6. 6 2. 13 7. 8 3. 12 8. 13 4. 15 9. 8 5. 10 10. 8 03/28: Session 1- Patient spells the name of an object by writing, provided a picture and it's label verbally with 100% accuracy. Session 2- Patient spells the name of an object by writing, provided a picture with 90% accuracy provided minimal cues. 03/29: Session 1- Patient spells the name of an object by writing, provided a picture and multiple choice letters with 2 foils with 50% accuracy provided moderate cues. Session 2- Patient writes the name of the object/item, provided a picture and it's label verbally, with 40% accuracy provided minimal verbal/visual cues. Target Response 1. bed Stevie 2. donut doub 3. sheep Sheet, sheeb 4. turtle Tusc 5. hand hand 6. sun sun 7. tree tree 8. shoe Shop, vipul 9. box Next 10. coffee coffee 03/30: Session 2- Patient spells the name of an object by writing, provided a picture and scattered letter choices with no foils with 90% accuracy provided minimal cues. Probe: Patient types common nouns when given through auditory presentation with 10% accuracy independently. Target Response 1. day day 2. means nu 3. face face (copied) 4. idea Idea (copied) 5. time time (copied) 6. number number (copied) 7. world world (copied) 8. family family (copied) 9. men med (copied) 10. name name (copied) Augmentative Communication Goal #1: The patient will generate gestures representing basic needs with 80% accuracy in response to auditory or visual instruction. 03/19 Session 1: Patient generated gestures independently with photos in 6/10 pictures with 60% accuracy (hat, phone, wells, wrist watch, scissors and egg). 03/22: Session 2- Patient generated gestured independently with photo description task to augment communication effectively with ~75% effectiveness. 03/23: Session 2- Patient functionally communicates her basic wants and needs using gestures and provided maximum visual, verbal, gestural and contextual cues from the speech-language pathologist to Dr. Maria, her hematology doctor, via telemedicine consult. With this level of support, she was able to convey that she has been having increasing headaches for the past [address] Maria was able to communicate a plan to her regarding this involving further head imaging and medication dose management. Patient required written context words and simplified explanation with gestures of the overallencounter from the ANESTHESIOLOGY PHYSICIAN ASSISTANT. Going forward, family/caregiver education regarding communication facilitation and SCA for Ynes would be appropriate via Zoom/Facetime or in person if possible. 03/24: Session 2- Patient generated gestured independently within structured conversation to augmentcommunication effectively with ~75% effectiveness with this familiar communication partner. 03/29: Session 1- Patient generated gestured independently within structured conversation to augment communication effectively with ~80% effectiveness with this familiar communication partner. 1 communication breakdown occurs that patient is unable to augment through gestures and other forms of communication when the clinician arrives and patient wants to locate something in her closet but is unable to locate the item. She is unable to describe or augment communication for the clinician to determine the item in question. PATIENT/FAMILY EDUCATION: Patient/Family Education: Patient/family education was provided today including: aphasia, rehab goals, neuroplasticity, home practice, cueing hierarchy, supported communication for aphasia (SCA), aphasia resources, discharge planning, and questions were addressed. Topic: Patient/Family education and training was completed today including: the role of Speech-Language Pathology Aphasia questions were addressed Learner: patient and patient's SHELTON Carrascoy Method of Education: Verbal, Written and Demonstration Barriers to Learning/Education: fatigue, headache pain, and presence of language impairment Patient: needs further instruction and education Family: was able to verbalize understanding of information Patient/Family Goals: Patient states I want to get better. ?? Assessment /CLINICAL IMPRESSIONS: Ynes White is a female 50 y.o. 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 Today, Ynes continues to demonstrate steady improvements in verbal expression, written expression, reading comprehension, and auditory comprehension. She demonstrates some decreased accuracy with expressive language tasks today, likely secondaryto her excitement and restlessness in regards to being discharged tomorrow. Expressive language errors increase when Ynes is fatigued, is in pain, or gets excited. Ynes spontaneously augments her communication with gestures, facial expressions, and intonation at this time, and this is judged to be effective ~80% of the time with a familiar communication partner. She continues to benefit from an Supported Communication for Adults with Aphasia (SCA) approach, provided gestures, drawings, and single written context words to support her auditory comprehension. Ynes remains appropriate for 30 min BID sessions for aphasia intervention based on her level of fatigue and headache pain. Ynes White currently presents with severe expressive and receptive aphasia, most consistent with Wernicke's type but with some deviation from typical Wernicke's type presentation. Patient appears to be able to follow some basic 1-step commands effectively provided context, models, slow auditory presentation of information, and tactile cues as needed. Repetition, object naming, word fluency,sentence completion, and responsive speech are all impaired but steadily improving. Ynes demonstrates a favorable response to use of gestures to assist with her auditory comprehension. Expressive language is characterized as fluent but mostly consists of word salad with many instances of jargon, neologisms, and paraphasias with occasional moments of intelligible discourse scattered throughout. Ynse also has a tendency to perseverate on certain words and neologisms, however, she is easily redirected from perseveration with short breaks and/or task switch. She attempts to utilize gestures to augment her expressive language, but is not always successful. She is also demonstrating breakdowns in reading comprehension at the short sentence level and significant deficits in written expression at the word level, compounded by impaired auditory comprehension preventing writing to dictation and impaired naming preventing written naming. These deficits impact the patient's ability to functionally communicate her wants, needs, and ideas and hold conversation. She presents with severe impairments in reading comprehension, however, she demonstrates some success with reading comprehension at the word level, which appears to be a relative strength compared to her auditory comprehension.She exhibits significant breakdown in reading comprehension at the short sentence level. Ynes also demonstrates significant deficits in written expression at the single word level however this appears to be improving and her awareness of these errors appears better than her awareness of errors in verbal expression, although her awareness of errors within verbal expression is also improving steadily at the single word and short phrase level. She also demonstrates relative strength in copying words and sentences, as well as writing numbers and the starting few letters of words independently. It has been determined that the patient demonstrates deficits that impact functioning in daily activities and hinder participation in life situations.??Patient currently requires assistance from others to communicate basic wants and needs and direct her medical care. Pt will continue to benefit from her needs being anticipated and simplified information presented to her. Information should be repeated and said in different ways, and augmented with pictures and gestures. The patient is demonstrating strengths in motivation and some intact basic expressive language skills which should be utilized during the patient's plan of care to maximize gains. Contextual factors that may impact the patient's ability to progress toward rehab goals include: severity of language impairment, need for physical assistance, tolerance level for therapy, pain, and depression/anxiety d/t to social isolation secondary to hospital's COVID19 no visitor policy. Based on patient's tolerance level, it is recommended that patient participate in 30 minute BID sessions initially and build toward 60 minute sessions as tolerated. Given patient's age, independence prior to admission, and social/occupational demands, she would benefit from intensive ANESTHESIOLOGY PHYSICIAN ASSISTANT intervention. Based on the patient's rehab potential, motivation, prior level of function, and the contextual factors, the patient's prognosis is considered good. It is anticip ated that the patient will make functional gains in expressive and receptive language skills with intensive skilled 1:1 speech language pathology services in the inpatient rehabilitation setting. It is anticipated that following her discharge from inpatient rehabilitation that Ynes will require a communication partner trained in SCA and she will require ongoing intensive skilled speech-language pathology services in her next setting. Functional Communication Measures ([place] [employer], 2002). The Functional Communication Measures (FCM???s) are a series of 7 point rating scales, ranging fromleast functional (Level 1) to most functional (Level 7). They have been developed by [employer] to describe different aspects of patient???s functional communication and swallowing abilities over the course of ANESTHESIOLOGY PHYSICIAN ASSISTANT intervention. ?? Spoken Language Comprehension Level 2: With consistent, maximal cues, the individual is able to follow simple directions, respond to simple yes/no questions in context, and respond to simple words orphrases related to personal needs. Spoken Language Expression Level 3: The communication partner must assume responsibility for structuring the communication exchange, and with consistent and moderate cueing, the individual can produce words and phrases that are appropriate and meaningful in context. Reading Level 4: The individual reads words and phrases related to routine daily activities, and words that are less familiar, longer, and more complex. The individual usually requires moderate cueing to read sentences of approximately 5-7 words. Writing Level 3: The individual writes single letters and common words, and with consistent moderate cueing, can write some words that are less familiar, longer, and more complex. ?? GOALS: Snf Goals: Projected Functional Communication Measures at discharge: Spoken Language Comprehension Level 4: Individual consistently responds accurately to simple yes/noquestions and occasionally follows simple directions without cues. Moderate contextual support is usually needed to understand complex sentences/messages. The individual is able to understand limited conversations about routine daily activities with familiar communication partners. Spoken Language Expression Level 4: The individual is successfully able to initiate communication using spoken language in simple, structured conversations in routine daily activities with familiar communication partners. The individual usually requires moderate cueing, but is able to demonstrate use of simple sentences (i.e., semantics, syntax, and morphology) and rarely uses complex sentences/messages. Reading Level 4: The individual reads words and phrases related to routine daily activities, and words that are less familiar, longer, and more complex. The individual usually requires moderate cueing to read sentences of approximately 5-7 words.- Met. Writing Level 3: The individual writes single letters and common words, and with consistent moderate cueing, can write some words that are less familiar, longer, and more complex.- Met. Short Term Goals: Auditory Comprehension: Goal #1: Patient will identify pictures that match auditory presentation of simple sentences in a visual field of 4-6 with >80% accuracy provided minimal cues from the clinician. Goal #2: Patient will answer simple yes/no questions with >80% accuracy provided fewer than 2 repetitions of the question. Goal #3: Patient will follow simple 1-step commands related to functional environment with >70% accuracy provided moderate verbal/tactile/visual cues in order to increase functional integration into environment. ?? Expressive Language: Goal #1: Patient will recite automatic speech tasks given moderate cues with >70% accuracy. Goal #2: Patient will name objects (real or pictured) to confrontation with >50% accuracy provided maximum verbal cues. Goal #3: Patient will repeat 1-2 syllable functional words, consistently across 3 trials, with >90% accuracy provided a visual model by the clinician. ?? Reading Comprehension: Goal #1: The patient will identify a written phrase from a field of 2, given an auditory model with80% accuracy. Goal #2: The patient will identify the written phrase to match a given object or picture with 80% accuracy in a field of 3. Written Expression: Goal #1: Patient will write the name of the object/item, provided a picture and it's label verbally, with 80% accuracy provided moderate verbal/visual cues. Augmentative Communication Goal #1: The patient will generate gestures representing basic needs with 80% accuracy in response to auditory or visual instruction. ?? Plan RECOMMENDATIONS: Patient will continue to benefit for further ANESTHESIOLOGY PHYSICIAN ASSISTANT intervention in this setting to address aphasia management and intervention needs. ?? Recommend inpatient rehabilitation ANESTHESIOLOGY PHYSICIAN ASSISTANT services: Patient will be seen for a minimum of 5x/week @ 30minutes BID due to current tolerance level. ?? Communication Access and Shared Decision Making Recommendations Please support communication access and shared decision making ability by doing the following: ?? Support Comprehension: ?? Have a pen and paper ready when communicating. ?? Please present information slowly and simplify. Augment with drawings, diagrams, gestures and pointing. ?? Ask one question at a time. ?? Have only one person speak at a time. ?? Environmental modifications:? Simplify the environment: ?? Carryover/Discharge??and Healthcare Decision making considerations ?? Will need family support for the successful carryover of discharge recommendations. ?? Currently comprehension of non-contextual information is a barrier Oliva Martinez MS CCC-ANESTHESIOLOGY PHYSICIAN ASSISTANT, MS, CCC-ANESTHESIOLOGY PHYSICIAN ASSISTANT 03/30/2020 16:27 * Isamar Angel - 03/29/2020 1613 EDT CM notes I spoke with Ever Linda. He did not get the chance to practice Lovenox injection with nursing staff on Saturday, as it had already been given prior to him arriving. He is scheduled to return on 03/31 at 8 am, for Lovenox injection and d/c instructions. Pt is aware of this. Expressive aphasia limits her ability to say so, but she appeared to understand the conversation, and is looking forward to going home. Isamar Downs RN CM * Aida Goodman, DPT - 03/29/2020 3359 EDT [facility] Physical Therapy Encounter Note Date of Service: 03/29/2020 , Activity: Level of risk of Harm B, Activity as tolerated, , Additional Precautions Information: LBone flap precautions (helmet OOB), R Rooke Boot in bed, PEG tube SUBJECTIVE: I am feeling good about going home soon Pain: not rated OBJECTIVE: Start time: 1400 Total Therapy Minutes: 30 minute(s) Interventions completed today: ] Gait Training: ?? Ambulation for endurance training without device. 700' with close supervision without gross lossof stability when changing directions today x1 reps, cuing for arm swing and scanning. ?? Gait deviations: slow speed, bilateral increased external rotation, decreased arm swing Therapeutic Exercise: ?? Nu-step x 15 minutes, level 4 2nd Session Time: Start time: 1530 Total Therapy Minutes: 30 minutes Gait Training: ?? Ambulation for endurance training without device. 700' with close supervision without gross lossof stability when changing directions today x1 reps, cuing for arm swing and scanning. ?? Gait deviations: slow speed, bilateral increased external rotation, decreased arm swing Neuromuscular Re-education: ?? Obstacle course requiring pt to step on uneven surfaces, soft surfaces, narrow soft surfaces, and over 8 hurdles with minimal assist for stability. Notable pt had the most difficult with tandem walking on soft surfaces. Going forward x 6 reps with seated rests between, side stepping x 2 reps. Patient/Family Education: Topic: See above, use of RW and helmet when mobilizing in her room, use of RW upon discharge, discharge planning. Learner: patient Method: verbal Barriers to Learning: none noted Outcome: verbalized understanding ASSESSMENT: Ynes tolerated therapy well today. She did not demonstrate any gross losses of balance today when ambulating on level surfaces without a device and minimal distraction. Pt does continue to have difficulty managing uneven surfaces without a device supporting the need for a rolling walker and family training. Pt demonstrates daily gains in activity tolerance and carryover. PLAN: ?? Walking endurance ?? Functional strength training: stairs ?? Progressive leg strengthening ?? Balance ?? Outdoor ambulation ?? Family training: use of walker, gait indoors/outdoors, stairs Contact information: Pager: [phone] Aida Goodman DPT, CLT 03/29/2020 13:49 * Jaden Rutherford MD - 03/29/2020 0477 EDT Physiatry Progress Note Admit Date: 03/02/2020 Hospital Day: LOS: 27 days Date of Service: 03/29/2020 Chief Complaint: Left temporoparietal hemorrhage status post decompressive craniectomy, setting of central venous thrombosis 02/14/2020 Subjective: No headache, no abdominal pain.. No shortness of breath or lightheadedness. Current Facility-Administered Medications: acetaminophen (TYLENOL) tablet 650 mg oral Q4H PRN aspirin chewable tablet 81 mg oral DAILY bisacodyL (DULCOLAX) suppository 10 mg rectal Q48H PRN calcium carbonate (TUMS) 200 mg calcium (500 mg) per chewable tablet tablet,chewable 1 Tab oral QIDPRN docusate sodium (COLACE) capsule 100 mg oral BID PRN enoxaparin (LOVENOX) injection 50 mg subcutaneous Q12H guaiFENesin tablet 200 mg oral Q6H PRN HYDROmorphone (DILAUDID) tablet 2 mg oral Q4H PRN lactulose (CHRONULAC) 20 gram/30 mL solution 30 mL oral BID PRN melatonin tablet 5 mg oral QHS multivitamin (FLINTSTONES) chewable tablet 1 Tab oral DAILY ondansetron (ZOFRAN-ODT) disintegrating tablet 4 mg oral Q8H PRN pantoprazole (PROTONIX) tablet 40 mg oral DAILY papain-alpha amylase-cellulase (CLOG ZAPPER) 2-5 mL feeding tube PRN polyethylene glycol 3350 (MIRALAX) packet 17 g oral Daily PRN senna (SENOKOT) tablet 1 Tab oral BID PRN Objective/Physical Exam: VS: Patient Vitals for the past 8 hrs: BP Heart Rate Temp 03/29/20 0644 101/54 75 BPM 36 ??C (96.8 ??F) Pain: No data found. Weight: Weight : 84.1 kg (185 lb 8 oz) Glucose Readings (last 8 readings): No results for input(s): GLUCOSEFINGE in the last 72 hours. I&O: No intake or output data in the 24 hours ending 03/29/20 1335 Exam: Gen: Alert, pleasant, no distress HEENT: Left decompressive hemicraniectomy site slightly sunken. Surgical incision with small areas of eschar. Evidence of a right homonymous hemianopsia. No facial droop. Neck supple. Mucosal membranes are moist Skin: no rashes, continued eschar over the craniectomy incision. Cardiac: Cor RRR Pulmonary: clear to auscultation bilaterally Abdomen: normal bowel sounds, soft, nontender to palpation, gastrostomy tube site is closed. Musculoskeletal: no joint tenderness, deformity or swelling, no muscular tenderness noted, full range of motion without pain Neuro: Expressive greater than receptive aphasia affect: Alert Motor: No focal motor weakness. There is some relative right lower extremity weakness compared to the other extremities but does not appear clinically significant. Tone normal Reflexes: trace Sensation: No extinction no clear focal sensory loss Cerebellar: no tremors Labs: I have personally reviewed CBC: Lab Results Component Value Date WBC 5.16 03/21/2020 RBC 3.71 (L) 03/21/2020 HGB 11.6 03/21/2020 HCT 34.4 (L) 03/21/2020 MCV 93 03/21/2020 MCH 31.3 03/21/2020 MCHC 33.7 03/21/2020 PLT 220 03/21/2020 NEUTROABS 2.93 03/18/2020 BMP: Lab Results Component Value Date NA 134 (L) 03/21/2020 K 5.2 (H) 03/21/2020 CL 100 03/21/2020 CO2 26 03/21/2020 BUN 34 (H) 03/18/2020 CREATININE 0.65 03/21/2020 CALCIUM 7.5 (L) 03/18/2020 MG 1.7 03/02/2020 PHOS 4.6 (H) 03/07/2020 LABALBU 2.6 (L) 03/18/2020 Assessment/Problems: (update problem list daily as appropriate) Patient Active Problem List Diagnosis Date Noted ??? *(H)Left-sided nontraumatic intracerebral hemorrhage ([facility] 03/02/2020 Priority: Medium Status post decompressive hemicraniectomy ??? Brain herniation ([facility]) 02/17/2020 Priority: Medium ??? Cerebral edema ([facility]) 02/17/2020 Priority: Medium ??? 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 (H)Cerebral venous thrombosis 02/14/2020 Priority: Medium ??? Encounter for insertion or removal of intrauterine contraceptive device 02/12/2020 Priority: Medium ??? Nicotine dependence, unspecified, uncomplicated 02/12/2020 Priority: Medium ??? Perimenopausal 02/12/2020 Priority: Medium ??? Post concussion syndrome 02/12/2020 Priority: Medium ??? Tobacco abuse 12/02/2012 Priority: Medium ??? Chronic low back pain 10/13/2012 Priority: Medium ??? Back pain 09/25/2012 Priority: Medium ??? Primary hypercoagulable state ([facility]) 03/23/2020 Class: Permanent Thrombosis Events A. 11/17/2019: [...] issue. Treatment and prevention A. Will need snf anticoagulation - agent TBD Plan: 1. Left frontal intraparenchymal hemorrhage: Status post decompressive craniectomy. Patient with residual mild right-sided weakness, significant expressive and receptive aphasia, dysphagia, right homonymous hemianopsia. Full PT, OT, ANESTHESIOLOGY PHYSICIAN ASSISTANT to address mobility, self care communication and swallowing fun ction. 24 hour rehab nursing for self care deficits. Continued intermittent headache, but no acute changes noted on recent CT scan of the head or MRI venogram. Helmet on when out of bed. Diet advanced to regular consistency. 2. 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 Evidence of left IJ, sigmoid and transverse sinuses as well. [facility] follow-up appreciated and she will remain on Lovenox for home and follow-up again in the [facility] clinic. 3. Right upper lobe pulmonary embolism, left upper extremity DVT: Now on therapeutic dose Lovenox. ?? 4. History of anxiety/depression: Monitor clinically. She has listed allergies to citalopram and duloxetine. 5. Nutrition: Regular consistency diet. Gastrostomy tube has been removed. Jaden Rutherford MD 03/29/2020 13:35 * Lula Hester, OT - 03/29/2020 1119 EDT [facility] Rehabilitation Therapy Inpatient Rehabilitation [facility] Occupational Therapy Encounter Note Date of Service: 03/29/2020 Subjective/Objective Subjective That helps me understand (visual harrell testing) Objective Start time: 1000 Total Therapy Minutes: 60 minute(s) Interventions included: Therapeutic Activities *Reviewed home equipment recommendations and plan to sit for shower. Pt declines shower today. *Pt recalls need for helmet prior to ambulating. Requires A to fasten gait belt. *Ambulates room <> quiet treatment room with RW and supervision. No collisions. Today the patient's visual harrell were assessed using 2 person confrontation with eyes tested separately. The visual field is the area where objects can be perceived when the individual is looking ahead. The normal visual field extends approximately 60 degrees superiorly, 75 degrees inferiorly, 60 degrees to the nasal side and 100 degrees to the temporal side. Ynes missed the target in the temporal with her right eye. *The patient described fleeting visual disturbance on the right side of objects at times. *Utilized Echograph Therapy System to address visual search and to assist with education related to suspected right visual field cut. -User paced, 2 minutes, size 5 circles, full array. 78 hits with 96.3% accuracy Following education re: reduced scanning speed and vision on right. -User paced, central flash. See below for quadrant scores: Quadrant Accuracy Reaction time #2 Accuracy #2 Reaction time UR 95.83% 1.87 100% 2.32 UL 100% 1.35 95.65% 1.28 LL 100% 1.28 100% 1.71 LR 88.89% 1.58 92.86% 1.65 Initiated UFOV, but pt could only complete the first test: Central Processing. Pt was not able to see the distracting target on the Divided attention subtest and the assessment was discontinued. No score was available for the first subtest because the score depends on completion of all subtests. Vital signs: Vital signs have been stable with interventions and were not monitored. Patient/Family Education: Topic: Visual field deficit (likely), need for eye care follow up, compensatory strategies Learner: patient Method: verbal and demonstration Barriers to Learning: language (aphasia) Outcome: verbalized understanding and reinforcement needed / plan: Discharge instructions Team Communication: With Dr. Rutherford re: recommendation for eye care follow up, likely neurophthalmology Assessment/Plan Assessment Ynes participated fully. Aphasia is a significant barrier to her ability to express her thoughtsand to describe her symptoms. It does appear that there is a right visual field deficit and this needs to be formally evaluated by an title i paraprofessional. While it was difficult for Ynes to describe this fully, she also indicated a visual disturbance, seemingly fleeting, on the right side of certain objects. Complex visual attention is impacted greatly by the placement of the stimuli. On theBITS, the distracting stimulus is in midline and the pt noticed all of them. On the UFOV the distractor is on the periphery and she could see none of them, on the right or the left. Plan Visual search skills Pager: [phone] Lula Hester OT, 03/29/2020, 11:20 * Oliva Martinez, [facility]-ANESTHESIOLOGY PHYSICIAN ASSISTANT - 03/29/2020 0801 EDT Speech-Language Pathology Daily and Current Progress Note ANESTHESIOLOGY PHYSICIAN ASSISTANT Diagnosis: Aphasia Medical Diagnosis: Cerebral venous thrombosis and resultant intraparenchymal hemorrhage in the leftfrontotemporal area Date of Onset: 02/14/20 Date of Referral: 03/02/20 Subjective/Objective SUBJECTIVE: Session 1- I didn't sleep very well. I woke up all wetty. Whoops! Silly Juanita. I need to learn how to do my own skis (shots). I don't want to bother Ever with it. Why do I want to call it him? ... Ah! I'm learning! Session 2- 's good. Yestasay, oh I know! I thought it was red and then sitesers, oh he's yellow (is actually orange). I railed (spelled) it out. He looks familiar. (re: the word 'shoe' written out) OBJECTIVE: Date of Service: 03/29/2020 Start Time: 0930 Total Therapy minutes: 30 minute(s) aphasia tx Second Session: Start Time: 1330 Total Therapy minutes: 30 minute(s) aphasia tx Current Treatment Objectives: Auditory Comprehension: Goal #1: Patient will identify pictures that match auditory presentation of simple sentences in a visual field of 4-6 with >80% accuracy provided minimal cues from the clinician. 03/25: Session 1 - Ynes identifies pictures that match auditory presentation of simple sentences in a visual field of 4-6 with 86% accuracy provided maximum visual, verbal and gestural cues for information processing, active listening and repetition. 03/28: Session 1- Ynes identifies pictures that match auditory presentation of simple sentences teresa visual field of 4-6 with 80% accuracy provided moderate visual, verbal and gestural cues for information processing, active listening and repetition. Session 2- Ynes identifies pictures that match auditory presentation of simple sentences in a visual field of 4-6 with 80% accuracy provided minimal visual, verbal and gestural cues for information processing, active listening and repetition. 03/29: Session 1- Ynes identifies pictures that match auditory presentation of simple sentences teresa visual field of 4-6 with 25% accuracy provided mod-max visual, verbal and gestural cues for information processing, active listening and repetition. Goal #2: Patient will answer simple yes/no questions with >80% accuracy provided fewer than 2 repetitions of the question. 03/23: Session 1- Patient answers simple yes/no questions with 40% accuracy provided fewer than 2 repetitions of the question. 1. 6- Error: Inaccurate attempt at the task item 0 repetitions 2. 13- Complete-delayed: Accurate, responsive, complete or complex, delayed 1 repetitions 3. 13- Complete-delayed: Accurate, responsive, complete or complex, delayed 0 repetitions 4. 15- Complete: accurate, responsive, complete, prompt, efficient 0 repetitions 5. 13- Complete-delayed: Accurate, responsive, complete or complex, delayed 0 repetitions 6. 6- Error: Inaccurate attempt at the task item 0 repetitions 7. 6- Error: Inaccurate attempt at the task item 1 repetitions 8. 6- Error: Inaccurate attempt at the task item 2 repetitions 9. 6- Error: Inaccurate attempt at the task item 0 repetitions 10. 6- Error: Inaccurate attempt at the task item 0 repetitions 03/28: Session 2- Patient answers simple yes/no questions with 45% accuracy provided fewer than 2 repetitions of the question. 03/29: Session 2- Patient answers simple yes/no questions with 64% accuracy provided fewer than 2 repetitions of the question. Goal #3: Patient will follow simple 1-step commands related to functional environment with >70% accuracy provided moderate verbal/tactile/visual cues in order to increase functional integration into environment. 03/09: Session 2- Patient follows simple 1-step commands related to environment with 0% accuracy independently. Accuracy increases to 90% accuracy following a model by the clinician with slowed auditory presentation of directions. 03/10: Session 1- Patient follows simple 1-step commands related to environment with 0% accuracy independently. Accuracy increases to 90% accuracy following a model by the clinician with slowed auditory presentation of directions. 03/12: Session 1- Patient follows simple 1-step commands related to environment with 0% accuracy independently. Accuracy increases to 62% accuracy following a model by the clinician with slowed auditory presentation of directions. 03/14: Session 2- Patient follows simple 1-step commands related to environment with 100% accuracy following a model by the clinician with slowed auditory presentation of directions. 03/15: / session: Patient followed 1 step commands in the context of therapy tasks today giveninitial demonstration. 03/16: Session 2- Patient follows simple 1-step commands related to environment with 90% accuracy following a model by the clinician with slowed auditory presentation of directions. 03/17: Session 1- Patient follows simple 1-step commands related to environment with 100% accuracy following a model by the clinician with slowed auditory presentation of directions. Patient completed1 of the commands independently without a model from the clinician today. 03/18: Session 1: Followed 2/10 simple 1 step commands independently. Patient followed ANESTHESIOLOGY PHYSICIAN ASSISTANT model with 100% accuracy. 03/19: Session 1: Followed 4/10 simple one step commands independently. Followed ANESTHESIOLOGY PHYSICIAN ASSISTANT model with 90% accuracy (blow a kiss, look out the window, big smile) 03/21: Followed 6/6 simple one-step commands given clinical model. Upon delayed repetition of the same commands, patient followed 3/6 simple one-step commands given additional repetition. 03/22: Session 1- Patient independently follows 1-step directions with 20% accuracy. Accuracy improves to 90% following a model by the clinician. 03/23: Session 1- Patient independently follows 1-step directions with 30% accuracy. Accuracy improves to 100% following a model by the clinician. 03/24: Session 1- Patient follows 1-step directions (adjective + noun) using the [employer] Advanced Comprehension ryne on the iPad with 28% accuracy provided maximum repetitions and slowed presentation. 03/28: Session 2- Patient follows 1-step directions (adjective + noun) using the [employer] Advanced Comprehension ryne on the iPad with 83% accuracy provided maximum repetitions and slowed presentation. 03/29: Session 2- Patient follows 1-step directions (adjective + noun) using the [employer] Advanced Comprehension ryne on the iPad with 40% accuracy provided maximum repetitions and slowed presentation. Expressive Language: Goal #1: Patient will recite automatic speech tasks given moderate cues with >70% accuracy. 03/08: Session 1- Patient recites automatic speech tasks with the clinician. See results below: 1-10: 100% accuracy following a model The Alphabet: Unable to perform in unison Months of the Years: Attempted to have patient repeat each month after the clinician: November, December, (jargon), (jargon), , June, April medication, June compation, sincation medication,seegus, French, Liliana Teague 03/09: Session 1- Patient recites automatic speech tasks with the clinician. See results below: 1-10: 100% accuracy following a starter cue one... The Alphabet: T1: A, me, S, d, 8, q, A, me, d, ec, q, g, h, eed, h ; T2: Patient was able to achieve 50% in unison with the clinician but eventually perseverated on w Days of the Week: Patient perseverated on w, k despite max cues, models, and attempts to perform in unison Session 2- Patient recites automatic speech tasks with the clinician. See results below: 1-10: 80% accuracy following a repetition of the instructions; 80% accuracy in trial 2 following a repetition of the instructions. The Alphabet: A, 7 you mean? following max cues and models Days of the Week: Patient perseverated on w, k despite max cues, models, and attempts to perform in unison 03/10: Session 1- Patient recites automatic speech tasks with the clinician. See results below: 1-10: 100% accuracy The Alphabet: a, q, q, jews, each, l, l, elf Days of the Week: w, q, w, q, w, q, l, q, l, q 03/12: Session 2- Patient recites automatic speech tasks with the clinician. See results below: 1-10: 90% accuracy The Alphabet: l, n, h, stomich, a, m, h, m, etch, is it etch? Days of the Week: elmen, elmen threemen, riley three hundred, h, h, eight? No, stomach 03/14: Session 2- Patient recites automatic speech tasks with the clinician. See results below: 1-10: 90% accuracy Days of the Week: feminal, lessons, lezimen... 03/16: Session 1- Patient recites automatic speech tasks with the clinician. See results below: 1-10: 0% accuracy Days of the Week: drama, bever, mener, sever... 03/17: Session 1- Patient recites automatic speech tasks with the clinician. See results below: 1-10: 100% accuracy Days of the Week: Saturday, Saturday, Wender, Thunder, Wender, Sender, Fender when repeating each day individually following a model by the clinician. 03/18: Session 1: Counting 1-10 Trial one: 04/03. Trial Two: 07/06 (Eight, Ninth, Tenth, Eleventh, Twelfth - Is that what you want? I got lost. 03/19: Session 1: Counting 1-10 at 90% accuracy, Days of the week - 03/01 03/21: Patient recites automatic sequences with the following accuracy: Counting 1-10: 08/04 (error: ten-hundred) Days of the week: 01/01 (perseveration on hundred e.g., nine one hundred). Following break and spontaneous production of Saturday: 05/31 03/22: Session 1- Days of the week: T1- 01/29 provided moderate visual and verbal cues; T2- 03/01provided moderate visualand verbal cues 03/23: Session 1- Patient recites automatic speech tasks with the clinician. See results below: 1-10: 100% accuracy Days of the Week: T1- [place],er, , er, huster, , Saturday (using max visual cues) T2- Saturday, , , , , Saturday, Saturday (using max visual cues) 03/24: Session 2- Patient recites automatic speech tasks with the clinician. See results below: Counting 1-30: 90% accuracy Days of the Week: , Saturday, Saturday, , Saturday, Saturday, Wednesday 03/28: Session 1- Demonstrated cues for eliciting automatic sequences for Ever (patient's SO) as a part of patient/caregiver education. Ever verbalized understanding. 03/29: Session 2- Patient recites automatic speech tasks with the clinician. See results below: Counting 1-30: Patient counted 1-13 independently and then began skipping around with paraphasias present. Days of the Week: one, two, q, a, et, q, s, a Goal #2: Patient will name objects (real or pictured) to confrontation with >50% accuracy provided maximum verbal cues. Probe: naming an object from a fo2 multiple choice- 20% accuracy (patient struggling with repeatingthe words, producing neologisms or paraphasias) 03/15: 2nd session: Repeating name of pictured object (in spontaneous context) in the context of a written expression task: ~50% accuracy (with partial credit for spelling a word out loud accurately!) 1. 6 2. 6 3. 15 4. 15 5. 8* * spelled the word out loud correctly! 03/16: Session 1- Patient names real pictured objects to confrontation provided maximum cues (phonemic, semantic, cloze, repetition, etc.) with 0% accuracy. Target Response 1. Earth derb (max cues) 2. door dargis (max cues) 3. pants stargus (max cues) 4. boxing dargus (max cues) 5. taco targus (max cues) 03/19: Session 1: Confrontation naming of everyday color photographs 0/10 however it was noted that patient began using gestures independently with photos in /10 pictures (gestured hat, phone, wells, wrist watch, scissors and egg) Patient stated, I never do that before, it's fun! New Goal written. 03/21: Patient named objects in 0/5 trials due to perseveration on Stomach/Sunnik. Patient repeated names as detailed below. 03/22: Session 2- Patient names real pictured objects to confrontation provided maximum cues (phonemic, semantic, cloze, repetition, etc.) with 20% accuracy. Target Response 1. apple Basket, but its... Bicycle 2. hat askit 3. tennis Not yasemin, sineck 4. pillow wash 5. hand That's a nasgul. 6. horse mushick 7. helmet bicycle 8. paper hanger Oh that's um... mailed 9. stomach stomach 10. squirrel Squirrel (phonemic cue provided) 03/23: Session 1- Patient names real pictured objects to confrontation provided maximum cues (phonemic, semantic, cloze, repetition, etc.) with 0% accuracy. Target Response 1. sun Mike (imitation: sun, ) 2. road caniger (imitation: road) 3. skiing NR (imitation: ) 4. tie Skra pate (imitation: Saturday) 03/24: Session 2- Patient names real pictured objects to confrontation provided maximum cues (phonemic, semantic, cloze, repetition, etc.) with 0% accuracy. Target Response 1. arm Stomach 2. dress Stomach or mistic 3. island mergic 03/25: Session 1- Patient names real pictured objects to confrontation provided maximum cues (phonemic, semantic, cloze, repetition, etc.) with 17% accuracy. Errors today were more closely related to target words. Target Response Error Type 1. zipper stomach perseveration 2. dog paws Semantic paraphasia 3. bed Dog, desk Perseveration, semantic paraphasia 4. brain suck Semantic paraphasia 5. fish stomach perseveration 6. sandwich sandwich - 03/26: Patient named pictured objects to confrontation given maximum cues with 0% accuracy today. Errors were characterized by neologisms and patient able to more closely approximate word given writtenword cues and following ANESTHESIOLOGY PHYSICIAN ASSISTANT model. 03/28: Session 1- Demonstrated cueing hierarchy for eliciting naming for Ever (patient's SO) as a partof patient/caregiver education. Ever verbalized understanding. Written information was provided. Goal #3: Patient will repeat 1-2 syllable functional words, consistently across 3 trials, with >90% accuracy provided a visual model by the clinician. 03/25: Session 1- Patient repeats 1-2 syllable functional words with 50% accuracy across 3 trials foreach word, provided a visual model by the clinician. Target Response Total 1. gloves Snug, snug, snug 0/3 2. chicken Shicken, shicken, shicken 0/3 3. salt Salt, salt, salt 3/3 4. Bat Back, bat, bat 2/3 5. window Window, window, window 33 6. customer quality specialist Plumic, plumbic, plumbic 0/3 7. watch Watch, watch, watch 01/25 8. dolphin Dolphin, dolphin, dolphin / 9. pizza Ditta, ditta, pittop 0/3 10. helmet Helmet, elmet, elmit 103/28: Session 1- Demonstrated cues for eliciting repetition for Ever (patient's SO) as a part of patient/caregiver education. Ever verbalized understanding.Written information was provided. 5/5: Session 1- Patient repeats 1-2 syllable functional words with 67% accuracy across 3 trials foreach word, provided a visual model by the clinician. Target Response Total 1. table Explore, adoor, explore 0/3 2. lettuce Lettuce, lettuce, lettuce 3/3 3. fish Fish, bit, fish 2/3 4. hat Hat, hat, hodge 2/3 5. pillow Pillow, pillow, pillow 3/3 6. salt Salt, salt, fault 2/3 7. tape Delaney, delaney, delaney 0/3 8. kitchen Kitchen, kitchen, kitchen 3/3 9. short Short, short, short 3/3 10. toilet Koyet, toilet, toilet 2/3 Reading Comprehension: Goal #1: The patient will identify a written phrase from a field of 2, given an auditory model with80% accuracy. 5/1: Session 1- Patient identifies a written phrase from a field of 2 given an auditory model and picture with 100% accuracy provided slow presentation and repetitions. 5/4: Session 2- Patient identifies a written phrase from a field of 4 given an auditory model and picture with 50% accuracy provided slow presentation and repetitions. Goal #2: The patient will identify the written phrase to match a given object or picture with 80% accuracy in a field of 3. 5/5: Session 1- Patient identifies a written phrase from a field of 3 given an auditory model and picture with 100% accuracy provided slow presentation and repetitions. Written Expression: Goal #1: Patient will write the name of the object/item, provided a picture and it's label verbally, with 80% accuracy provided moderate verbal/visual cues. 5/1: Session 2- Patient writes the name of the object/item, provided a picture and it's label verbally, with 30% accuracy provided moderate verbal/visual cues. Target Response 1. bed raul 2. sun hathaway 3. coffee j 4. tree tree 5. shoe shy, shoe 6. hand Hard, hand 7. sheep C, l, (sheep- provided first two letters) 8. turtle Turple 9. computer Cou, cup, cu 10. unicorn Uniy, uni 5/2: Written word retrieval given a picture (3-5 letter words): 40% accuracy, given initial letter cues or multiple choice, accuracy increased to 90% 1. 8 6. 6 2. 13 7. 8 3. 12 8. 13 4. 15 9. 8 5. 10 10. 8 03/28: Session 1- Patient spells the name of an object by writing, provided a picture and it's label verbally with 100% accuracy. Session 2- Patient spells the name of an object by writing, provided a picture with 90% accuracy provided minimal cues. 03/29: Session 1- Patient spells the name of an object by writing, provided a picture and multiple choice letters with 2 foils with 50% accuracy provided moderate cues. Session 2- Patient writes the name of the object/item, provided a picture and it's label verbally, with 40% accuracy provided minimal verbal/visual cues. Target Response 1. bed Stevie 2. donut doub 3. sheep Sheet, sheeb 4. turtle Tusc 5. hand hand 6. sun sun 7. tree tree 8. shoe Shop, vipul 9. box Next 10. coffee coffee Augmentative Communication Goal #1: The patient will generate gestures representing basic needs with 80% accuracy in response to auditory or visual instruction. 03/19 Session 1: Patient generated gestures independently with photos in 6/10 pictures with 60% accuracy (hat, phone, wells, wrist watch, scissors and egg). 03/22: Session 2- Patient generated gestured independently with photo description task to augment communication effectively with ~75% effectiveness. 03/23: Session 2- Patient functionally communicates her basic wants and needs using gestures and provided maximum visual, verbal, gestural and contextual cues from the speech-language pathologist to Dr. Maria, her hematology doctor, via telemedicine consult. With this level of support, she was able to convey that she has been having increasing headaches for the past [address] Maria was able to communicate a plan to her regarding this involving further head imaging and medication dose management. Patient required written context words and simplified explanation with gestures of the overallencounter from the ANESTHESIOLOGY PHYSICIAN ASSISTANT. Going forward, family/caregiver education regarding communication facilitation and SCA for Ynes would be appropriate via Zoom/Facetime or in person if possible. 03/24: Session 2- Patient generated gestured independently within structured conversation to augmentcommunication effectively with ~75% effectiveness with this familiar communication partner. 03/29: Session 1- Patient generated gestured independently within structured conversation to augment communication effectively with ~80% effectiveness with this familiar communication partner. 1 communication breakdown occurs that patient is unable to augment through gestures and other forms of communication when the clinician arrives and patient wants to locate something in her closet but is unable to locate the item. She is unable to describe or augment communication for the clinician to determine the item in question. PATIENT/FAMILY EDUCATION: Patient/Family Education: Patient/family education was provided today including: aphasia, rehab goals, neuroplasticity, home practice, cueing hierarchy, supported communication for aphasia (SCA), aphasia resources, discharge planning, and questions were addressed. Topic: Patient/Family education and training was completed today including: the role of Speech-Language Pathology Aphasia questions were addressed Learner: patient and patient's SHELTON Carrascoy Method of Education: Verbal, Written and Demonstration Barriers to Learning/Education: fatigue, headache pain, and presence of language impairment Patient: needs further instruction and education Family: was able to verbalize understanding of information Patient/Family Goals: Patient states I want to get better. ?? Assessment /CLINICAL IMPRESSIONS: Ynes White is a female 50 y.o. 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 Today, Ynes continues to demonstrate steady improvements in verbal expression, written expression, reading comprehension, and auditory awareness.Errors with expressive language are closer to targets and she is demonstrating improving awareness of errors within expressive language at the single word level and she is occasionally recognizing errors in expressive language at the phrase level. Expressive language errors increase when Ynes isfatigued or is in pain. Ynes spontaneously augments her communication with gestures, facial expre ssions, and intonation at this time, and this is judged to be effective ~80% of the time with a familiar communication partner. She continues to benefit from an Supported Communication for Adults with Aphasia (SCA) approach, provided gestures, drawings, and single written context words to support her auditory comprehension. Ynes remains appropriate for 30 min BID sessions for aphasia intervention based on her level of fatigue and headache pain. Yens White currently presents with severe expressive and receptive aphasia, most consistent with Wernicke's type but with some deviation from typical Wernicke's type presentation. Patient appears to be able to follow some basic 1-step commands effectively provided context, models, slow auditory presentation of information, and tactile cues as needed. Repetition, object naming, word fluency,sentence completion, and responsive speech are all impaired but steadily improving. Ynes demonstrates a favorable response to use of gestures to assist with her auditory comprehension. Expressive language is characterized as fluent but mostly consists of word salad with many instances of jargon, neologisms, and paraphasias with occasional moments of intelligible discourse scattered throughout. Ynes also has a tendency to perseverate on certain words and neologisms, however, she is easily redirected from perseveration with short breaks and/or task switch. She attempts to utilize gestures to augment her expressive language, but is not always successful. She is also demonstrating breakdowns in reading comprehension at the short sentence level and significant deficits in written expression at the word level, compounded by impaired auditory comprehension preventing writing to dictation and impaired naming preventing written naming. These deficits impact the patient's ability to functionally communicate her wants, needs, and ideas and hold conversation. She presents with severe impairments in reading comprehension, however, she demonstrates some success with reading comprehension at the word level, which appears to be a relative strength compared to her auditory comprehension.She exhibits significant breakdown in reading comprehension at the short sentence level. Ynes also demonstrates significant deficits in written expression at the single word level however this appears to be improving and her awareness of these errors appears better than her awareness of errors in verbal expression, although her awareness of errors within verbal expression is also improving steadily at the single word and short phrase level. She also demonstrates relative strength in copying words and sentences, as well as writing numbers and the starting few letters of words independently. It has been determined that the patient demonstrates deficits that impact functioning in daily activities and hinder participation in life situations.??Patient currently requires assistance from others to communicate basic wants and needs and direct her medical care. Pt will continue to benefit from her needs being anticipated and simplified information presented to her. Information should be repeated and said in different ways, and augmented with pictures and gestures. The patient is demonstrating strengths in motivation and some intact basic expressive language skills which should be utilized during the patient's plan of care to maximize gains. Contextual factors that may impact the patient's ability to progress toward rehab goals include: severity of language impairment, need for physical assistance, tolerance level for therapy, pain, and depression/anxiety d/t to social isolation secondary to hospital's COVID19 no visitor policy. Based on patient's tolerance level, it is recommended that patient participate in 30 minute BID sessions initially and build toward 60 minute sessions as tolerated. Given patient's age, independence prior to admission, and social/occupational demands, she would benefit from intensive ANESTHESIOLOGY PHYSICIAN ASSISTANT intervention. Based on the patient's rehab potential, motivation, prior level of function, and the contextual factors, the patient's prognosis is considered good. It is anticip ated that the patient will make functional gains in expressive and receptive language skills with intensive skilled 1:1 speech language pathology services in the inpatient rehabilitation setting. It is anticipated that following her discharge from inpatient rehabilitation that Ynes will require a communication partner trained in SCA and she will require ongoing intensive skilled speech-language pathology services in her next setting. Functional Communication Measures ([place] [employer], 2002). The Functional Communication Measures (FCM???s) are a series of 7 point rating scales, ranging fromleast functional (Level 1) to most functional (Level 7). They have been developed by [employer] to describe different aspects of patient???s functional communication and swallowing abilities over the course of ANESTHESIOLOGY PHYSICIAN ASSISTANT intervention. ?? Spoken Language Comprehension Level 2: With consistent, maximal cues, the individual is able to follow simple directions, respond to simple yes/no questions in context, and respond to simple words orphrases related to personal needs. Spoken Language Expression Level 3: The communication partner must assume responsibility for structuring the communication exchange, and with consistent and moderate cueing, the individual can produce words and phrases that are appropriate and meaningful in context. Reading Level 3: The individual reads single letters and common words, and with consistent moderatecueing, can read some words that are less familiar, longer, and more complex. Writing Level 2: The individual writes single letters and common words with consistent maximal cueing. ?? GOALS: Snf Goals: Projected Functional Communication Measures at discharge: Spoken Language Comprehension Level 4: Individual consistently responds accurately to simple yes/noquestions and occasionally follows simple directions without cues. Moderate contextual support is usually needed to understand complex sentences/messages. The individual is able to understand limited conversations about routine daily activities with familiar communication partners. Spoken Language Expression Level 4: The individual is successfully able to initiate communication using spoken language in simple, structured conversations in routine daily activities with familiar communication partners. The individual usually requires moderate cueing, but is able to demonstrate use of simple sentences (i.e., semantics, syntax, and morphology) and rarely uses complex sentences/messages. Reading Level 4: The individual reads words and phrases related to routine daily activities, and words that are less familiar, longer, and more complex. The individual usually requires moderate cueing to read sentences of approximately 5-7 words. Writing Level 3: The individual writes single letters and common words, and with consistent moderate cueing, can write some words that are less familiar, longer, and more complex. Short Term Goals: Auditory Comprehension: Goal #1: Patient will identify pictures that match auditory presentation of simple sentences in a visual field of 4-6 with >80% accuracy provided minimal cues from the clinician. Goal #2: Patient will answer simple yes/no questions with >80% accuracy provided fewer than 2 repetitions of the question. Goal #3: Patient will follow simple 1-step commands related to functional environment with >70% accuracy provided moderate verbal/tactile/visual cues in order to increase functional integration into environment. ?? Expressive Language: Goal #1: Patient will recite automatic speech tasks given moderate cues with >70% accuracy. Goal #2: Patient will name objects (real or pictured) to confrontation with >50% accuracy provided maximum verbal cues. Goal #3: Patient will repeat 1-2 syllable functional words, consistently across 3 trials, with >90% accuracy provided a visual model by the clinician. ?? Reading Comprehension: Goal #1: The patient will identify a written phrase from a field of 2, given an auditory model with80% accuracy. Goal #2: The patient will identify the written phrase to match a given object or picture with 80% accuracy in a field of 3. Written Expression: Goal #1: Patient will write the name of the object/item, provided a picture and it's label verbally, with 80% accuracy provided moderate verbal/visual cues. Augmentative Communication Goal #1: The patient will generate gestures representing basic needs with 80% accuracy in response to auditory or visual instruction. ?? Plan RECOMMENDATIONS: Patient will continue to benefit for further ANESTHESIOLOGY PHYSICIAN ASSISTANT intervention in this setting to address aphasia management and intervention needs. ?? Recommend inpatient rehabilitation ANESTHESIOLOGY PHYSICIAN ASSISTANT services: Patient will be seen for a minimum of 5x/week @ 30minutes BID due to current tolerance level. ?? Communication Access and Shared Decision Making Recommendations Please support communication access and shared decision making ability by doing the following: ?? Support Comprehension: ?? Have a pen and paper ready when communicating. ?? Please present information slowly and simplify. Augment with drawings, diagrams, gestures and pointing. ?? Ask one question at a time. ?? Have only one person speak at a time. ?? Environmental modifications:? Simplify the environment: ?? Carryover/Discharge??and Healthcare Decision making considerations ?? Will need family support for the successful carryover of discharge recommendations. ?? Currently comprehension of non-contextual information is a barrier Oliva Martinez MS CCC-ANESTHESIOLOGY PHYSICIAN ASSISTANT, MS CCC-ANESTHESIOLOGY PHYSICIAN ASSISTANT 03/29/2020 16:26 * Adia Goodman DPT - 03/28/2020 1807 EDT [facility] Rehabilitation Therapy [facility] Physical Therapy Encounter Note Date of Service: 03/28/2020 , Activity: Level of risk of Harm B, Activity as tolerated, , Additional Precautions Information: LBone flap precautions (helmet OOB), R Rooke Boot in bed, PEG tube SUBJECTIVE: Pt states she is tired from the training with her significant other in the morning Pain: not rated OBJECTIVE: Start time: 1330 Total Therapy Minutes: 30 minute(s) Interventions completed today: Vital Signs: Vitals: 03/28/20 1033 BP: 113/64 BP Cuff Location: Right arm BP Patient Position: Sitting Pulse: 84 ] Gait Training: ?? Ambulation for endurance training without device. 350' with close supervision without gross lossof stability when changing directions today x1 reps with seated rests between, cuing for arm swing and scanning. ?? Ambulation for endurance with RW. 1000' with distant supervision supervision without loss of stability walking on level and unlevel surfaces negotiating thresholds and doorways. ?? Gait deviations: slow speed, bilateral increased external rotation, decreased arm swing Therapeutic Exercise: ?? Nu-step x 10 minutes, level 5 Patient semi-fowlers in bed with bed alarm on, setting 2. Call miranda and tray table in reach. 2nd Session Time: Start time: 1530 Total Therapy Minutes: 30 minutes Discussed discharge planning with patient and initiation of a distant supervision trial for mobility in her room. The pt was provided with a list to keep on her tray table to aid in remembering to call the nurse, don her helmet, and use her RW whenever mobilizing in her room. Pt demonstrated the above with verbal cuing to remember to clip her helmet together> pt otherwise negotiated her way to the bathroom safely with the use of the RW followed by ambulation to the sink to wash her hands. . Patient/Family Education: Topic: See above, risk for falls, use of RW Learner: patient Method: verbal Barriers to Learning: none noted Outcome: verbalized understanding ASSESSMENT: Ynes tolerated therapy well today. She did not demonstrate any gross losses of balance today. Pt to start a trial of distant supervision for mobility in her room with the use of a RW and donning/doffing her helmet on her own. Nursing aware. Pt will benefit from ongoing review of thistrial and repeated discharge planning. PLAN: ?? Walking endurance ?? Functional strength training: stairs ?? Progressive leg strengthening ?? Balance ?? Outdoor ambulation ?? Family training: use of walker, gait indoors/outdoors, stairs Contact information: Pager: [phone] Aida Goodman DPT, CLT 03/28/2020 18:09 * Jaden Rutherford MD - 03/28/2020 5764 EDT Physiatry Progress Note Admit Date: 03/02/2020 Hospital Day: LOS: 26 days Date of Service: 03/28/2020 Chief Complaint: Left temporoparietal hemorrhage status post decompressive craniectomy, setting of central venous thrombosis 02/14/2020 Subjective: No headache this morning. No shortness of breath or lightheadedness. No GI distress. Current Facility-Administered Medications: acetaminophen (TYLENOL) tablet 650 mg oral Q4H PRN aspirin chewable tablet 81 mg oral DAILY bisacodyL (DULCOLAX) suppository 10 mg rectal Q48H PRN calcium carbonate (TUMS) 200 mg calcium (500 mg) per chewable tablet tablet,chewable 1 Tab oral QIDPRN docusate sodium (COLACE) capsule 100 mg oral BID PRN enoxaparin (LOVENOX) injection 50 mg subcutaneous Q12H guaiFENesin tablet 200 mg oral Q6H PRN HYDROmorphone (DILAUDID) tablet 2 mg oral Q4H PRN lactulose (CHRONULAC) 20 gram/30 mL solution 30 mL oral BID PRN melatonin tablet 5 mg oral QHS multivitamin (FLINTSTONES) chewable tablet 1 Tab oral DAILY ondansetron (ZOFRAN-ODT) disintegrating tablet 4 mg oral Q8H PRN pantoprazole (PROTONIX) tablet 40 mg oral DAILY papain-alpha amylase-cellulase (CLOG ZAPPER) 2-5 mL feeding tube PRN polyethylene glycol 3350 (MIRALAX) packet 17 g oral Daily PRN senna (SENOKOT) tablet 1 Tab oral BID PRN Objective/Physical Exam: VS: Patient Vitals for the past 8 hrs: BP Pulse Resp Temp 03/28/20 0621 109/58 72 14 35.9 ??C (96.6 ??F) Pain: Patient Vitals for the past 8 hrs: Numeric Pain Level (Scale 1-10) 03/28/20 0821 5 03/28/20 0820 5 Weight: Weight : 84.1 kg (185 lb 8 oz) Glucose Readings (last 8 readings): No results for input(s): GLUCOSEFINGE in the last 72 hours. I&O: Intake/Output Summary (Last 24 hours) at 03/28/2020 0958 Last data filed at 03/27/2020 1455 Gross per 24 hour Intake 480 ml Output -- Net 480 ml Exam: Gen: Alert, pleasant, no distress HEENT: Left decompressive hemicraniectomy site slightly sunken. Surgical incision with small areas of eschar. Evidence of a right homonymous hemianopsia. No facial droop. Neck supple. Mucosal membranes are moist Skin: no rashes, continued eschar over the craniectomy incision. Cardiac: Cor RRR Pulmonary: clear to auscultation bilaterally Abdomen: normal bowel sounds, soft, nontender to palpation, PEG tube has a small split in it just above the bumper, with no further leaking after placing an adhesive over the leak (tape). Musculoskeletal: no joint tenderness, deformity or swelling, no muscular tenderness noted, full range of motion without pain Neuro: Expressive greater than receptive aphasia affect: Alert Motor: No focal motor weakness. There is some relative right lower extremity weakness compared to the other extremities but does not appear clinically significant. Tone normal Reflexes: trace Sensation: No extinction no clear focal sensory loss Cerebellar: no tremors Labs: I have personally reviewed CBC: Lab Results Component Value Date WBC 5.16 03/21/2020 RBC 3.71 (L) 03/21/2020 HGB 11.6 03/21/2020 HCT 34.4 (L) 03/21/2020 MCV 93 03/21/2020 MCH 31.3 03/21/2020 MCHC 33.7 03/21/2020 PLT 220 03/21/2020 NEUTROABS 2.93 03/18/2020 BMP: Lab Results Component Value Date NA 134 (L) 03/21/2020 K 5.2 (H) 03/21/2020 CL 100 03/21/2020 CO2 26 03/21/2020 BUN 34 (H) 03/18/2020 CREATININE 0.65 03/21/2020 CALCIUM 7.5 (L) 03/18/2020 MG 1.7 03/02/2020 PHOS 4.6 (H) 03/07/2020 LABALBU 2.6 (L) 03/18/2020 Assessment/Problems: (update problem list daily as appropriate) Patient Active Problem List Diagnosis Date Noted ??? *(H)Left-sided nontraumatic intracerebral hemorrhage ([facility]) 03/02/2020 Priority: Medium Status post decompressive hemicraniectomy ??? Brain herniation (HCC-CMS) 02/17/2020 Priority: Medium ??? Cerebral edema ([facility]) 02/17/2020 Priority: Medium ??? 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 (H)Cerebral venous thrombosis 02/14/2020 Priority: Medium ??? Encounter for insertion or removal of intrauterine contraceptive device 02/12/2020 Priority: Medium ??? Nicotine dependence, unspecified, uncomplicated 02/12/2020 Priority: Medium ??? Perimenopausal 02/12/2020 Priority: Medium ??? Post concussion syndrome 02/12/2020 Priority: Medium ??? Tobacco abuse 12/02/2012 Priority: Medium ??? Chronic low back pain 10/13/2012 Priority: Medium ??? Back pain 09/25/2012 Priority: Medium ??? Primary hypercoagulable state ([facility]) 03/23/2020 Class: Permanent Thrombosis Events A. 11/17/2019: [...] issue. Treatment and prevention A. 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 Left frontal intraparenchymal hemorrhage: Status post decompressive craniectomy. Patient with residual mild right-sided weakness, significant expressive and receptive aphasia, dysphagia, right homonymous hemianopsia. Full PT, OT, ANESTHESIOLOGY PHYSICIAN ASSISTANT to address mobility, self care communication and swallowing fun ction. 24 hour rehab nursing for self care deficits. Continued intermittent headache, but no acute changes noted on recent CT scan of the head or MRI venogram. Helmet on when out of bed. Diet advanced to regular consistency. 2. 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 Evidence of left IJ, sigmoid and transverse sinuses as well. [facility] follow-up appreciated and she will remain on Lovenox for home and follow-up again in the [facility] clinic. 3. Right upper lobe pulmonary embolism, left upper extremity DVT: Now on therapeutic dose Lovenox. ?? 4. History of anxiety/depression: Monitor clinically. She has listed allergies to citalopram and duloxetine. 5. Nutrition: PEG tube placed 02/18/2020. At bedside this morning, with a firm pull, the gastrostomytube was removed. She tolerated this well. She had some localized bleeding, and a local bandage wasplaced. I spent a total of 35 minutes in direct floor time dedicated solely to this patient and 20 minutes of that time was spent in discussion with the patient about the risks and treatment options for gastrostomy tube removal, anticoagulation. Jaden Rutherford MD 03/28/2020 9:43 * Oliva Martinez, MS [facility]-ANESTHESIOLOGY PHYSICIAN ASSISTANT - 03/28/2020 0839 EDT Speech-Language Pathology Daily and Current Progress Note ANESTHESIOLOGY PHYSICIAN ASSISTANT Diagnosis: Aphasia Medical Diagnosis: Cerebral venous thrombosis and resultant intraparenchymal hemorrhage in the leftfrontotemporal area Date of Onset: 02/14/20 Date of Referral: 03/02/20 Subjective/Objective SUBJECTIVE: Session 1- I need to learn how to be quiet and not try to give her the words. - Ever Session 2- I'm being very mean with who I used to be. Now I can just focus on that. (after cleaning her table off) That was so understanding. Isn't it interesting? It's hard for me to read, but when I get it... OBJECTIVE: Date of Service: 03/28/2020 Start Time: 1100 Total Therapy minutes: 60 minute(s) patient/caregiver education Second Session: Start Time: 1430 Total Therapy minutes: 30 minute(s) aphasia tx Current Treatment Objectives: Auditory Comprehension: Goal #1: Patient will identify pictures that match auditory presentation of simple sentences in a visual field of 4-6 with >80% accuracy provided minimal cues from the clinician. 5/: Session 1 - Ynes identifies pictures that match auditory presentation of simple sentences in a visual field of 4-6 with 86% accuracy provided maximum visual, verbal and gestural cues for information processing, active listening and repetition. 5: Session 1- Ynes identifies pictures that match auditory presentation of simple sentences teresa visual field of 4-6 with 80% accuracy provided moderate visual, verbal and gestural cues for information processing, active listening and repetition. Session 2- Ynes identifies pictures that match auditory presentation of simple sentences in a visual field of 4-6 with 80% accuracy provided minimal visual, verbal and gestural cues for information processing, active listening and repetition. Goal #2: Patient will answer simple yes/no questions with >80% accuracy provided fewer than 2 repetitions of the question. 03/23: Session 1- Patient answers simple yes/no questions with 40% accuracy provided fewer than 2 repetitions of the question. 1. 6- Error: Inaccurate attempt at the task item 0 repetitions 2. 13- Complete-delayed: Accurate, responsive, complete or complex, delayed 1 repetitions 3. 13- Complete-delayed: Accurate, responsive, complete or complex, delayed 0 repetitions 4. 15- Complete: accurate, responsive, complete, prompt, efficient 0 repetitions 5. 13- Complete-delayed: Accurate, responsive, complete or complex, delayed 0 repetitions 6. 6- Error: Inaccurate attempt at the task item 0 repetitions 7. 6- Error: Inaccurate attempt at the task item 1 repetitions 8. 6- Error: Inaccurate attempt at the task item 2 repetitions 9. 6- Error: Inaccurate attempt at the task item 0 repetitions 10. 6- Error: Inaccurate attempt at the task item 0 repetitions 03/28: Session 2- Patient answers simple yes/no questions with 45% accuracy provided fewer than 2 repetitions of the question. Goal #3: Patient will follow simple 1-step commands related to functional environment with >70% accuracy provided moderate verbal/tactile/visual cues in order to increase functional integration into environment. 03/09: Session 2- Patient follows simple 1-step commands related to environment with 0% accuracy independently. Accuracy increases to 90% accuracy following a model by the clinician with slowed auditory presentation of directions. 03/10: Session 1- Patient follows simple 1-step commands related to environment with 0% accuracy independently. Accuracy increases to 90% accuracy following a model by the clinician with slowed auditory presentation of directions. 03/12: Session 1- Patient follows simple 1-step commands related to environment with 0% accuracy independently. Accuracy increases to 62% accuracy following a model by the clinician with slowed auditory presentation of directions. 03/14: Session 2- Patient follows simple 1-step commands related to environment with 100% accuracy following a model by the clinician with slowed auditory presentation of directions. 03/15: / session: Patient followed 1 step commands in the context of therapy tasks today giveninitial demonstration. 03/16: Session 2- Patient follows simple 1-step commands related to environment with 90% accuracy following a model by the clinician with slowed auditory presentation of directions. 03/17: Session 1- Patient follows simple 1-step commands related to environment with 100% accuracy following a model by the clinician with slowed auditory presentation of directions. Patient completed1 of the commands independently without a model from the clinician today. 03/18: Session 1: Followed 2/10 simple 1 step commands independently. Patient followed ANESTHESIOLOGY PHYSICIAN ASSISTANT model with 100% accuracy. 03/19: Session 1: Followed 4/10 simple one step commands independently. Followed ANESTHESIOLOGY PHYSICIAN ASSISTANT model with 90% accuracy (blow a kiss, look out the window, big smile) 03/21: Followed 6/6 simple one-step commands given clinical model. Upon delayed repetition of the same commands, patient followed 3/6 simple one-step commands given additional repetition. 03/22: Session 1- Patient independently follows 1-step directions with 20% accuracy. Accuracy improves to 90% following a model by the clinician. 03/23: Session 1- Patient independently follows 1-step directions with 30% accuracy. Accuracy improves to 100% following a model by the clinician. 03/24: Session 1- Patient follows 1-step directions (adjective + noun) using the [employer] Advanced Comprehension ryne on the iPad with 28% accuracy provided maximum repetitions and slowed presentation. 03/28: Session 2- Patient follows 1-step directions (adjective + noun) using the [employer] Advanced Comprehension ryne on the iPad with 83% accuracy provided maximum repetitions and slowed presentation. Expressive Language: Goal #1: Patient will recite automatic speech tasks given moderate cues with >70% accuracy. 03/08: Session 1- Patient recites automatic speech tasks with the clinician. See results below: 1-10: 100% accuracy following a model The Alphabet: Unable to perform in unison Months of the Years: Attempted to have patient repeat each month after the clinician: November, December, (jargon), (jargon), , June, April medication, June compation, sincation medication,seegus, French, lessonagus Musa, Decemegas 03/09: Session 1- Patient recites automatic speech tasks with the clinician. See results below: 1-10: 100% accuracy following a starter cue one... The Alphabet: T1: A, me, S, d, 8, q, A, me, d, ec, q, g, h, eed, h ; T2: Patient was able to achieve 50% in unison with the clinician but eventually perseverated on w Days of the Week: Patient perseverated on w, k despite max cues, models, and attempts to perform in unison Session 2- Patient recites automatic speech tasks with the clinician. See results below: 1-10: 80% accuracy following a repetition of the instructions; 80% accuracy in trial 2 following a repetition of the instructions. The Alphabet: A, 7 you mean? following max cues and models Days of the Week: Patient perseverated on w, k despite max cues, models, and attempts to perform in unison 03/10: Session 1- Patient recites automatic speech tasks with the clinician. See results below: 1-10: 100% accuracy The Alphabet: a, q, q, jews, each, l, l, elf Days of the Week: w, q, w, q, w, q, l, q, l, q 03/12: Session 2- Patient recites automatic speech tasks with the clinician. See results below: 1-10: 90% accuracy The Alphabet: l, n, h, stomich, a, m, h, m, etch, is it etch? Days of the Week: elmen, elmen threemen, riley three hundred, h, h, eight? No, stomach 03/14: Session 2- Patient recites automatic speech tasks with the clinician. See results below: 1-10: 90% accuracy Days of the Week: feminal, lessons, lezimen... 03/16: Session 1- Patient recites automatic speech tasks with the clinician. See results below: 1-10: 0% accuracy Days of the Week: drama, bever, mener, sever... 03/17: Session 1- Patient recites automatic speech tasks with the clinician. See results below: 1-10: 100% accuracy Days of the Week: Saturday, Saturday, Wender, Thunder, Wender, Sender, Fender when repeating each day individually following a model by the clinician. 03/18: Session 1: Counting 1-10 Trial one: 04/03. Trial Two: 07/06 (Eight, Ninth, Tenth, Eleventh, Twelfth - Is that what you want? I got lost. 03/19: Session 1: Counting 1-10 at 90% accuracy, Days of the week - 03/01 03/21: Patient recites automatic sequences with the following accuracy: Counting 1-10: 08/04 (error: ten-hundred) Days of the week: 01/01 (perseveration on hundred e.g., nine one hundred). Following break and spontaneous production of Saturday: 05/31 03/22: Session 1- Days of the week: T1- 01/29 provided moderate visual and verbal cues; T2- 03/01provided moderate visualand verbal cues 03/23: Session 1- Patient recites automatic speech tasks with the clinician. See results below: 1-10: 100% accuracy Days of the Week: T1- ,, , , , , Saturday (using max visual cues) T2- Saturday, , , , , Saturday, Saturday (using max visual cues) 03/24: Session 2- Patient recites automatic speech tasks with the clinician. See results below: Counting 1-: 90% accuracy Days of the Week: , Saturday, Saturday, , Saturday, Saturday, Wednesday 03/28: Session 1- Demonstrated cues for eliciting automatic sequences for Ever (patient's SO) as a part of patient/caregiver education. Ever verbalized understanding. Goal #2: Patient will name objects (real or pictured) to confrontation with >50% accuracy provided maximum verbal cues. Probe: naming an object from a fo2 multiple choice- 20% accuracy (patient struggling with repeatingthe words, producing neologisms or paraphasias) 03/15: 2nd session: Repeating name of pictured object (in spontaneous context) in the context of a written expression task: ~50% accuracy (with partial credit for spelling a word out loud accurately!) 1. 6 2. 6 3. 15 4. 15 5. 8* * spelled the word out loud correctly! 03/16: Session 1- Patient names real pictured objects to confrontation provided maximum cues (phonemic, semantic, cloze, repetition, etc.) with 0% accuracy. Target Response 1. Earth derb (max cues) 2. door dargis (max cues) 3. pants stargus (max cues) 4. boxing dargus (max cues) 5. taco targus (max cues) 03/19: Session 1: Confrontation naming of everyday color photographs 0 however it was noted that patient began using gestures independently with photos in 05/04 pictures (gestured hat, phone, wells, wrist watch, scissors and egg) Patient stated, I never do that before, it's fun! New Goal written. 03/21: Patient named objects in 0/5 trials due to perseveration on Stomach/Sunnik. Patient repeated names as detailed below. 03/22: Session 2- Patient names real pictured objects to confrontation provided maximum cues (phonemic, semantic, cloze, repetition, etc.) with 20% accuracy. Target Response 1. apple Basket, but its... Bicycle 2. hat askit 3. tennis Not yasemin sineart 4. pillow wash 5. hand That's a nasgul. 6. horse mushick 7. helmet bicycle 8. paper hanger Oh that's um... mailed 9. stomach stomach 10. squirrel Squirrel (phonemic cue provided) 03/23: Session 1- Patient names real pictured objects to confrontation provided maximum cues (phonemic, semantic, cloze, repetition, etc.) with 0% accuracy. Target Response 1. sun Mike (imitation: sat, ) 2. road caniger (imitation: road) 3. skiing NR (imitation: ) 4. tie Skunday, skumer (imitation: Saturday) 03/24: Session 2- Patient names real pictured objects to confrontation provided maximum cues (phonemic, semantic, cloze, repetition, etc.) with 0% accuracy. Target Response 1. arm Stomach 2. dress Stomach or mistic 3. island mergic 03/25: Session 1- Patient names real pictured objects to confrontation provided maximum cues (phonemic, semantic, cloze, repetition, etc.) with 17% accuracy. Errors today were more closely related to target words. Target Response Error Type 1. zipper stomach perseveration 2. dog paws Semantic paraphasia 3. bed Dog, desk Perseveration, semantic paraphasia 4. brain suck Semantic paraphasia 5. fish stomach perseveration 6. sandwich sandwich - 03/26: Patient named pictured objects to confrontation given maximum cues with 0% accuracy today. Errors were characterized by neologisms and patient able to more closely approximate word given writtenword cues and following ANESTHESIOLOGY PHYSICIAN ASSISTANT model. /: Session 1- Demonstrated cueing hierarchy for eliciting naming for Ever (patient's SO) as a partof patient/caregiver education. Ever verbalized understanding. Written information was provided. Goal #3: Patient will repeat 1-2 syllable functional words, consistently across 3 trials, with >90% accuracy provided a visual model by the clinician. 5/: Session 1- Patient repeats 1-2 syllable functional words with 50% accuracy across 3 trials foreach word, provided a visual model by the clinician. Target Response Total 1. gloves Snug, snug, snug 0/3 2. chicken Shicken, shicken, shicken 0/3 3. salt Salt, salt, salt 3/3 4. Bat Back, bat, bat 2/3 5. window Window, window, window 3/3 6. customer quality specialist Plumic, plumbic, plumbic 0/3 7. watch Watch, watch, watch 3/3 8. dolphin Dolphin, dolphin, dolphin 3/3 9. pizza Ditta, ditta, pittop 0/3 10. helmet Helmet, elmet, elmit 1/3 5: Session 1- Demonstrated cues for eliciting repetition for Ever (patient's SO) as a part of patient/caregiver education. Ever verbalized understanding.Written information was provided. Reading Comprehension: Goal #1: The patient will identify a written phrase from a field of 2, given an auditory model with80% accuracy. 5/: Session 1- Patient identifies a written phrase from a field of 2 given an auditory model and picture with 100% accuracy provided slow presentation and repetitions. /4: Session 2- Patient identifies a written phrase from a field of 4 given an auditory model and picture with 50% accuracy provided slow presentation and repetitions. Goal #2: The patient will identify the written word to match a given object or picture with 80% accuracy in a field of 3 (presented in a vertical orientation). 03/12: Session 1- Patient identifies the written word from a field of 3, given a picture of an object, with 53% accuracy. 03/14: Session 2- Attempted but could not complete d/t patient complaining of not being able to see stimuli d/t them being blurry. 03/15: 1st session: Patient was given a pictured object/item and then presented with three words, written by clinician in a vertical presentation and held upright for her viewing. She then used the picture to 'underline' the matching written word. She independently manipulated the picture to aid hervision. Word to picture match (f of 2 words), presented vertically: 100% accuracy 1. 13 6. 13 2. 15 7. / 3. 13 8. / 4. 15 9. / 5. 13 10. / Word to picture match (f of 3 words), presented vertically: 83% accuracy 1. 6 6. 15 2. 13 7. / 3. 15 8. / 4. 13 9. / 5. 15 10. / 03/16: Session 2- Probe: Patient identifies written 2-3 word phrases from a field of 2, given a picture of an object with 50% accuracy. 03/18: Session 1: Word to picture (field of 3 words), presented vertically: 8/10 at 80% 03/25: Session 2- Word to picture match (f of 3 words), presented vertically: 100% accuracy. 1. 15- Complete: accurate, responsive, complete, prompt, efficient 2. 15- Complete: accurate, responsive, complete, prompt, efficient 3. 15- Complete: accurate, responsive, complete, prompt, efficient 4. 15- Complete: accurate, responsive, complete, prompt, efficient 5. 15- Complete: accurate, responsive, complete, prompt, efficient 6. 15- Complete: accurate, responsive, complete, prompt, efficient 7. 13- Complete-delayed: Accurate, responsive, complete or complex, delayed 8. 15- Complete: accurate, responsive, complete, prompt, efficient 9. 15- Complete: accurate, responsive, complete, prompt, efficient 10. 15- Complete: accurate, responsive, complete, prompt, efficient 5/2: Identifying a written word to match a picture (f of 3 words): 09/06, 77% accuracy 03/28: Session 1- Word to picture match (f of 3 words), presented vertically: 100% accuracy. Written Expression: Goal #1: Patient will write the name of the object/item, provided a picture and it's label verbally, with 80% accuracy provided moderate verbal/visual cues. 03/25: Session 2- Patient writes the name of the object/item, provided a picture and it's label verbally, with 30% accuracy provided moderate verbal/visual cues. Target Response 1. bed raul 2. sun hathaway 3. coffee j 4. tree tree 5. shoe shy, shoe 6. hand Hard, hand 7. sheep C, l, (sheep- provided first two letters) 8. turtle Turple 9. computer Cou, cup, cu 10. unicorn Uniy, uni 03/26: Written word retrieval given a picture (3-5 letter words): 40% accuracy, given initial letter cues or multiple choice, accuracy increased to 90% 1. 8 6. 6 2. 13 7. 8 3. 12 8. 13 4. 15 9. 8 5. 10 10. 8 03/28: Session 1- Patient spells the name of an object by writing, provided a picture and it's label verbally with 100% accuracy. Session 2- Patient spells the name of an object by writing, provided a picture with 90% accuracy provided minimal cues. Augmentative Communication Goal #1: The patient will generate gestures representing basic needs with 80% accuracy in response to auditory or visual instruction. 03/19 Session 1: Patient generated gestures independently with photos in 6/10 pictures with 60% accuracy (hat, phone, wells, wrist watch, scissors and egg). 03/22: Session 2- Patient generated gestured independently with photo description task to augment communication effectively with ~75% effectiveness. 03/23: Session 2- Patient functionally communicates her basic wants and needs using gestures and provided maximum visual, verbal, gestural and contextual cues from the speech-language pathologist to Dr. Maria, her hematology doctor, via telemedicine consult. With this level of support, she was able to convey that she has been having increasing headaches for the past [address] Maria was able to communicate a plan to her regarding this involving further head imaging and medication dose management. Patient required written context words and simplified explanation with gestures of the overallencounter from the ANESTHESIOLOGY PHYSICIAN ASSISTANT. Going forward, family/caregiver education regarding communication facilitation and SCA for Ynes would be appropriate via Zoom/Facetime or in person if possible. 03/24: Session 2- Patient generated gestured independently within structured conversation to augmentcommunication effectively with ~75% effectiveness with this familiar communication partner. PATIENT/FAMILY EDUCATION: Patient/Family Education: Patient/family education was provided today including: aphasia, rehab goals, neuroplasticity, home practice, cueing hierarchy, supported communication for aphasia (SCA), aphasia resources, discharge planning, and questions were addressed. Topic: Patient/Family education and training was completed today including: the role of Speech-Language Pathology Aphasia questions were addressed Learner: patient and patient's SHELTON Curtis Method of Education: Verbal, Written and Demonstration Barriers to Learning/Education: fatigue, headache pain, and presence of language impairment Patient: needs further instruction and education Family: was able to verbalize understanding of information Patient/Family Goals: Patient states I want to get better. ?? Assessment /CLINICAL IMPRESSIONS: Ynes White is a female 50 y.o. 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 Today, Ynes and her SHELTON Curtis participate in patient/caregiver education. Extensive education is provided re: Ynes's language impairment, strengths & weakness, and how to maximize home practice. Models are provided for Ever on how to utilize a cueing hierarchy through various language tasks to target areas of need and to build on existing strengths. He verbalizes understanding. During Ynes's second session today, she demonstrates continued improvements in her awareness of errors in her written and verbal expression. Errors with expressive language are closer to targets and she is demonstrating improving awareness of errors within expressive language at the single word level and she is occasionally recognizing errors in expressivelanguage at the phrase level. Ynes spontaneously augments her communication with gestures, facial expressions, and intonation at this time, and this is judged to be effective ~80% of the time witha familiar communication partner. She continues to benefit from an Supported Communication for Adults with Aphasia (SCA) approach, provided gestures, drawings, and single written context words to support her auditory comprehension. Ynes remains appropriate for 30 min BID sessions for aphasia intervention based on her level of fatigue and headache pain. Ynes White currently presents with severe expressive and receptive aphasia, most consistent with Wernicke's type but with some deviation from typical Wernicke's type presentation. Patient appears to be able to follow some basic 1-step commands effectively provided context, models, slow auditory presentation of information, and tactile cues as needed. Repetition, object naming, word fluency,sentence completion, and responsive speech are all impaired but steadily improving. Ynes demonstrates a favorable response to use of gestures to assist with her auditory comprehension. Expressive language is characterized as fluent but mostly consists of word salad with many instances of jargon, neologisms, and paraphasias with occasional moments of intelligible discourse scattered throughout. Ynes also has a tendency to perseverate on certain words and neologisms, however, she is easily redirected from perseveration with short breaks and/or task switch. She attempts to utilize gestures to augment her expressive language, but is not always successful. She is also demonstrating breakdowns in reading comprehension at the short sentence level and significant deficits in written expression at the word level, compounded by impaired auditory comprehension preventing writing to dictation and impaired naming preventing written naming. These deficits impact the patient's ability to functionally communicate her wants, needs, and ideas and hold conversation. She presents with severe impairments in reading comprehension, however, she demonstrates some success with reading comprehension at the word level, which appears to be a relative strength compared to her auditory comprehension.She exhibits significant breakdown in reading comprehension at the short sentence level. Ynes also demonstrates significant deficits in written expression at the single word level however this appears to be improving and her awareness of these errors appears better than her awareness of errors in verbal expression, although her awareness of errors within verbal expression is also improving steadily at the single word and short phrase level. She also demonstrates relative strength in copying words and sentences, as well as writing numbers and the starting few letters of words independently. It has been determined that the patient demonstrates deficits that impact functioning in daily activities and hinder participation in life situations.??Patient currently requires assistance from others to communicate basic wants and needs and direct her medical care. Pt will continue to benefit from her needs being anticipated and simplified information presented to her. Information should be repeated and said in different ways, and augmented with pictures and gestures. The patient is demonstrating strengths in motivation and some intact basic expressive language skills which should be utilized during the patient's plan of care to maximize gains. Contextual factors that may impact the patient's ability to progress toward rehab goals include: severity of language impairment, need for physical assistance, tolerance level for therapy, pain, and depression/anxiety d/t to social isolation secondary to hospital's COVID19 no visitor policy. Based on patient's tolerance level, it is recommended that patient participate in 30 minute BID sessions initially and build toward 60 minute sessions as tolerated. Given patient's age, independence prior to admission, and social/occupational demands, she would benefit from intensive ANESTHESIOLOGY PHYSICIAN ASSISTANT intervention. Based on the patient's rehab potential, motivation, prior level of function, and the contextual factors, the patient's prognosis is considered good. It is anticip ated that the patient will make functional gains in expressive and receptive language skills with intensive skilled 1:1 speech language pathology services in the inpatient rehabilitation setting. It is anticipated that following her discharge from inpatient rehabilitation that Ynes will require a communication partner trained in SCA and she will require ongoing intensive skilled speech-language pathology services in her next setting. Functional Communication Measures ([place] [employer], 2002). The Functional Communication Measures (FCM???s) are a series of 7 point rating scales, ranging fromleast functional (Level 1) to most functional (Level 7). They have been developed by [employer] to describe different aspects of patient???s functional communication and swallowing abilities over the course of ANESTHESIOLOGY PHYSICIAN ASSISTANT intervention. ?? Spoken Language Comprehension Level 2: With consistent, maximal cues, the individual is able to follow simple directions, respond to simple yes/no questions in context, and respond to simple words orphrases related to personal needs. Spoken Language Expression Level 3: The communication partner must assume responsibility for structuring the communication exchange, and with consistent and moderate cueing, the individual can produce words and phrases that are appropriate and meaningful in context. Reading Level 3: The individual reads single letters and common words, and with consistent moderatecueing, can read some words that are less familiar, longer, and more complex. Writing Level 2: The individual writes single letters and common words with consistent maximal cueing. ?? GOALS: Psychiatric Nurse Goals: Projected Functional Communication Measures at discharge: Spoken Language Comprehension Level 4: Individual consistently responds accurately to simple yes/noquestions and occasionally follows simple directions without cues. Moderate contextual support is usually needed to understand complex sentences/messages. The individual is able to understand limited conversations about routine daily activities with familiar communication partners. Spoken Language Expression Level 4: The individual is successfully able to initiate communication using spoken language in simple, structured conversations in routine daily activities with familiar communication partners. The individual usually requires moderate cueing, but is able to demonstrate use of simple sentences (i.e., semantics, syntax, and morphology) and rarely uses complex sentences/messages. Reading Level 4: The individual reads words and phrases related to routine daily activities, and words that are less familiar, longer, and more complex. The individual usually requires moderate cueing to read sentences of approximately 5-7 words. Writing Level 3: The individual writes single letters and common words, and with consistent moderate cueing, can write some words that are less familiar, longer, and more complex. Short Term Goals: Auditory Comprehension: Goal #1: Patient will identify pictures that match auditory presentation of simple sentences in a visual field of 4-6 with >80% accuracy provided minimal cues from the clinician. Goal #2: Patient will answer simple yes/no questions with >80% accuracy provided fewer than 2 repetitions of the question. Goal #3: Patient will follow simple 1-step commands related to functional environment with >70% accuracy provided moderate verbal/tactile/visual cues in order to increase functional integration into environment. ?? Expressive Language: Goal #1: Patient will recite automatic speech tasks given moderate cues with >70% accuracy. Goal #2: Patient will name objects (real or pictured) to confrontation with >50% accuracy provided maximum verbal cues. Goal #3: Patient will repeat 1-2 syllable functional words, consistently across 3 trials, with >90% accuracy provided a visual model by the clinician. ?? Reading Comprehension: Goal #1: The patient will identify a written phrase from a field of 2, given an auditory model with80% accuracy. Goal #2: The patient will identify the written word to match a given object or picture with 80% accuracy in a field of 3 (presented in a vertical orientation).- Goal met. Upgrade: The patient will identify the written phrase to match a given object or picture with 80% accuracy in a field of 3. Written Expression: Goal #1: Patient will write the name of the object/item, provided a picture and it's label verbally, with 80% accuracy provided moderate verbal/visual cues. Augmentative Communication Goal #1: The patient will generate gestures representing basic needs with 80% accuracy in response to auditory or visual instruction. ?? Plan RECOMMENDATIONS: Patient will continue to benefit for further ANESTHESIOLOGY PHYSICIAN ASSISTANT intervention in this setting to address aphasia management and intervention needs. ?? Recommend inpatient rehabilitation ANESTHESIOLOGY PHYSICIAN ASSISTANT services: Patient will be seen for a minimum of 5x/week @ 30minutes BID due to current tolerance level. ?? Communication Access and Shared Decision Making Recommendations Please support communication access and shared decision making ability by doing the following: ?? Support Comprehension: ?? Have a pen and paper ready when communicating. ?? Please present information slowly and simplify. Augment with drawings, diagrams, gestures and pointing. ?? Ask one question at a time. ?? Have only one person speak at a time. ?? Environmental modifications:? Simplify the environment: ?? Carryover/Discharge??and Healthcare Decision making considerations ?? Will need family support for the successful carryover of discharge recommendations. ?? Currently comprehension of non-contextual information is a barrier Oliva Martinez MS CCC-ANESTHESIOLOGY PHYSICIAN ASSISTANT, MS, CCC-ANESTHESIOLOGY PHYSICIAN ASSISTANT 03/28/2020 16:16 * Tam Gentile, OT - 03/28/2020 0813 EDT [facility] Rehabilitation Therapy Inpatient Rehabilitation [facility] Occupational Therapy Encounter Note Date of Service: 03/28/2020 SUBJECTIVE: Pt reports she is excited to see Ever, her boyfriend. Reports she is excited to go home soon and is looking forward to working with Ever to make this safe. OBJECTIVE: Start time: 1000 Treatment time: 6219-5870 Total Therapy Minutes: 60 minute(s) Interventions included: Self-Care/Home Management 1 unit Completed ambulatory level self care tasks to progress independence with all activities ?? Reviewed safety needs for mobility, helmet, assist for safety ?? Item retrieval at ambulatory level with distant supervision for safety ?? Dressed upper and lower body with distant supervision for safety ?? Ambulated room and hallway with rolling walker, close supervision for safety Therapeutic Activities 3 units Completed family training with pt and with boyfriend to ensure safety upon discharge. Reviewed the following verbally, in writing and with teach back opportunity to allow Ever to demonstrate good understanding of recommendations. Written out as follows: Showering recommendations: ??? Need a shower chair ??? Grab bars ??? Long handled shower hose ??? Non slip personnel and payroll technician stickers for tub floor ??? WEAR HELMET EVERYTIME STANDING ??? Supervision when sitting to take helmet off to wash head Safety with mobility: ??? Stand on right side, cues to pay attention to the right ??? Take frequent rests ??? Use walker for longer distances, like outside ??? Work with home health to progress this Driving: ??? No driving until medically cleared Vision: ??? Seems to have difficulty with scanning to the right ??? Work with here to look left and right ??? Will need follow up with neuro ophthalmology in the future, will need your MD to refer House activities: ??? Can start doing light things in the kitchen, like making cereal, sandwiches etc. ??? Will need someone nearby for safety. Bedtime and morning routine: ??? Go to the bathroom right before bed ??? Once in bed, place helmet on bedside table ??? Walker nearby ??? Call for help before you go to the bathroom ??? Decrease fluid intake before bed so you don???t need to get up and go to the bathroom ??? Able to get dressed/undressed with supervision for safety Vital signs: Vital signs have been stable with interventions and were not monitored. Patient/Family Education: Topic: Benefits of activity Compensatory strategies D/C planning Safety awareness Learner: patient and boyfriend Ever Method: verbal and demonstration Barriers to Learning: language Outcome: verbalized understanding and returned demonstration Team Communication: With nursing regarding care and family training ASSESSMENT: Pt is making ongoing gains towards increased independence with self care tasks at an ambulatory level with ongoing awareness regarding safety for activities. Pt and boyfriend were receptive to education, but required repetition of information and teach back opportunity to ensure full und erstanding. Pt continues to be on track for discharge home this week, and Ever appears to understandimportance of safety and recommendations to support this. PLAN: Scanning activities Ambulatory level self care activities attention tasks, alternating and divided attention activities Fall prevention and safety education for discharge this week Pager: [phone] Tam Gentile OT, 03/28/2020, 8:13 * Zheng Maya, OTR - 03/28/2020 0733 EDT Rehabilitation Therapies Inpatient Rehabilitation [facility] Occupational Therapy Encounter Note Date of Service: 03/28/2020 Subjective/Objective SUBJECTIVE: He just needs to know that I can do some stuff. He is a little scared. pt discussing how caregiver training went with SO this AM I'm getting dizzy just so you know during BITS OBJECTIVE: Second Session Start time: 1400 Scheduled time: 7946-2832 Total Therapy Minutes: 30 minute(s) Interventions included: Self-Care/Home Management Therapeutic Activities -pt requesting to complete laundry at start of OT session. Focus on progressing self care ?? Pt ambulated with CGA x1 no device. Pt able to recall from memory how to pathfind to laundry room ?? Pt loaded clothing into washer with close S and appropriately added soap. Cues needed to operatewasher -completed activities at [facility] with focus on attention, visual scanning, standing tolerance ?? Single target time paced: 2min of activity in stance. 93% accuracy, 86 hits. Use of BUE. Pt reported dizziness about 90sec into activity, initiated sitting. ?? Pt requested to sit for remainder of BITS. Miranda cancellation: 3min 44sec to complete. 0 targets missed. Increased time to locate final 2 targets. Pt demonstrating good sustained attention to task. ?? Trails A: 2min 9sec to complete. Min cues for scanning, pt missing targets on border of screen. Vital signs: Vital signs have been stable with interventions and were not monitored. Patient/Family Education: See above Team Communication: Coverage via primary OT, with PT re: distant S trial Assessment/Plan ASSESSMENT: Pt tolerated session well and appeared to be in much better spirits compared to when this OT last worked with patient. Pt able to verbalize symptoms and initiate safe positioning when they came on. Pt also did well with familiar IADL task, anticipate at home she will be able to participate in this with S. PLAN: ?? Per primary OT: visual scanning, attention tasks, endurance and strengthening Pager: [phone] Maya Calzada, OTR, 03/28/2020, 7:38 * Sandra Lester, PT - 03/26/2020 4949 EDT [facility] Rehabilitation Therapy Inpatient Rehabilitation Center [facility] Physical Therapy Encounter Note Date of Service: 03/26/2020 Subjective/Objective Subjective Pt states it would be nice to go outside. Pain: pt reported mild headache but willing to work with PT. Objective Start time: 1130 Total Therapy Minutes: 30 minute(s) Interventions completed today: Pt wearing helmet during treatment. Vitals: Pre sittin/67 85 There Activity: Sit<>stand and stand step transfer with close supervision and no device. (2)Neuro re-ed: Functional Gait Assessment (FGA)^ . This test assesses balance while walking. 1. Gait level surfaces 1 2. Change in gait speed 2 3. Gait with horizontal head turns 1 4. Gait with vertical head turns 2 5. Gait and pivot turn 1 6. Step over obstacle 2 7. Gait with narrow base of support 3 8. Gait with eyes closed 0 9. Ambulating backwards 2 10. Steps 2 Total Score Age normative values (Walker, 2007) Age 95% CI 40-49 28.3-29.5 50-59 27.9-29.0 Gait training: pt ambulated ~100 ft x2 with no device and min/contact/close supervision in hallway.Pt with slow michelle, small step through gait and cues to relax arms at side. 2nd Session Time: Start time: 1430 Total Therapy Minutes: 30 minutes Interventions completed today: Pt wearing helmet during treatment. There Activity: Supine<>sit on flat bed, indepedently. Sit<>stand and stand step transfer with close supervision assist of 1. Pt transfers from the toilet, bed, wc and picnic bench. (2)Gait Training: ?? Ambulation for endurance training without device. Pt ambulated 350-400'x2 on outside surfaces with min/contact assist of 1. Pt ambulated on level sidewalk, ramp, asphalt, gras and curbs(x4). ?? Gait deviations: slow speed, bilateral increased external rotation, decreased arm swing and morecautious on the grass and uneven asphalt. Patient/Family Education: Topic: Outcome measure results, gait training, outdoor mobility Learner: patient Method: verbal and demonstration Barriers to Learning: cognitive deficits and language Outcome: needs practice and verbalized understanding Team Communication: With nsg regarding pt status Assessment/Plan Assessment FGA well below age/gender related norm and indicating fall risk. Pt did well with outdoor ambulation without an assistive device. She was cautious and took her timewith the uneven surfaces. Plan Per primary PT Family training for ambulation, path finding, and stairs, ambulation outdoors, trial mod I transfers and ambulation in the room with RW as appropriate ?? 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 OBJECTIVE: Date of Service: 03/26/2020 Start Time: 1100 Total Therapy minutes: 30 minute(s) c/c tx Current Treatment Objectives: Auditory Comprehension: Goal #1: Patient will identify pictures that match auditory presentation of simple sentences in a visual field of 4-6 with >80% accuracy provided minimal cues from the clinician. 5/: Session 1 - Ynes identifies pictures that match auditory presentation of simple sentences in a visual field of 4-6 with 86% accuracy provided maximum visual, verbal and gestural cues for information processing, active listening and repetition. Goal #2: Patient will answer simple yes/no questions with >80% accuracy provided fewer than 2 repetitions of the question. 03/23: Session 1- Patient answers simple yes/no questions with 40% accuracy provided fewer than 2 repetitions of the question. 1. 6- Error: Inaccurate attempt at the task item 0 repetitions 2. 13- Complete-delayed: Accurate, responsive, complete or complex, delayed 1 repetitions 3. 13- Complete-delayed: Accurate, responsive, complete or complex, delayed 0 repetitions 4. 15- Complete: accurate, responsive, complete, prompt, efficient 0 repetitions 5. 13- Complete-delayed: Accurate, responsive, complete or complex, delayed 0 repetitions 6. 6- Error: Inaccurate attempt at the task item 0 repetitions 7. 6- Error: Inaccurate attempt at the task item 1 repetitions 8. 6- Error: Inaccurate attempt at the task item 2 repetitions 9. 6- Error: Inaccurate attempt at the task item 0 repetitions 10. 6- Error: Inaccurate attempt at the task item 0 repetitions Goal #3: Patient will follow simple 1-step commands related to functional environment with >70% accuracy provided moderate verbal/tactile/visual cues in order to increase functional integration into environment. 03/09: Session 2- Patient follows simple 1-step commands related to environment with 0% accuracy independently. Accuracy increases to 90% accuracy following a model by the clinician with slowed auditory presentation of directions. 03/10: Session 1- Patient follows simple 1-step commands related to environment with 0% accuracy independently. Accuracy increases to 90% accuracy following a model by the clinician with slowed auditory presentation of directions. 03/12: Session 1- Patient follows simple 1-step commands related to environment with 0% accuracy independently. Accuracy increases to 62% accuracy following a model by the clinician with slowed auditory presentation of directions. 03/14: Session 2- Patient follows simple 1-step commands related to environment with 100% accuracy following a model by the clinician with slowed auditory presentation of directions. 03/15: / session: Patient followed 1 step commands in the context of therapy tasks today giveninitial demonstration. 03/16: Session 2- Patient follows simple 1-step commands related to environment with 90% accuracy following a model by the clinician with slowed auditory presentation of directions. 03/17: Session 1- Patient follows simple 1-step commands related to environment with 100% accuracy following a model by the clinician with slowed auditory presentation of directions. Patient completed1 of the commands independently without a model from the clinician today. 03/18: Session 1: Followed 2/10 simple 1 step commands independently. Patient followed ANESTHESIOLOGY PHYSICIAN ASSISTANT model with 100% accuracy. 03/19: Session 1: Followed 4/10 simple one step commands independently. Followed ANESTHESIOLOGY PHYSICIAN ASSISTANT model with 90% accuracy (blow a kiss, look out the window, big smile) 03/21: Followed 6/6 simple one-step commands given clinical model. Upon delayed repetition of the same commands, patient followed 3/6 simple one-step commands given additional repetition. 03/22: Session 1- Patient independently follows 1-step directions with 20% accuracy. Accuracy improves to 90% following a model by the clinician. 03/23: Session 1- Patient independently follows 1-step directions with 30% accuracy. Accuracy improves to 100% following a model by the clinician. 03/24: Session 1- Patient follows 1-step directions (adjective + noun) using the [employer] Advanced Comprehension ryne on the iPad with 28% accuracy provided maximum repetitions and slowed presentation. Expressive Language: Goal #1: Patient will recite automatic speech tasks given moderate cues with >70% accuracy. 03/08: Session 1- Patient recites automatic speech tasks with the clinician. See results below: 1-10: 100% accuracy following a model The Alphabet: Unable to perform in unison Months of the Years: Attempted to have patient repeat each month after the clinician: November, December, (jargon), (jargon), , June, April medication, June compation, sincation medication,ekaterina, French, alejandra Vigil, Liliana 03/09: Session 1- Patient recites automatic speech tasks with the clinician. See results below: 1-10: 100% accuracy following a starter cue one... The Alphabet: T1: A, me, S, d, 8, q, A, me, d, ec, q, g, h, eed, h ; T2: Patient was able to achieve 50% in unison with the clinician but eventually perseverated on w Days of the Week: Patient perseverated on w, k despite max cues, models, and attempts to perform in unison Session 2- Patient recites automatic speech tasks with the clinician. See results below: 1-10: 80% accuracy following a repetition of the instructions; 80% accuracy in trial 2 following a repetition of the instructions. The Alphabet: A, 7 you mean? following max cues and models Days of the Week: Patient perseverated on w, k despite max cues, models, and attempts to perform in unison 03/10: Session 1- Patient recites automatic speech tasks with the clinician. See results below: 1-10: 100% accuracy The Alphabet: a, q, q, jews, each, l, l, elf Days of the Week: w, q, w, q, w, q, l, q, l, q 03/12: Session 2- Patient recites automatic speech tasks with the clinician. See results below: 1-10: 90% accuracy The Alphabet: l, n, h, stomich, a, m, h, m, etch, is it etch? Days of the Week: elmen, elmen threemen, riley three hundred, h, h, eight? No, stomach 03/14: Session 2- Patient recites automatic speech tasks with the clinician. See results below: 1-10: 90% accuracy Days of the Week: feminal, lessons, lezimen... 03/16: Session 1- Patient recites automatic speech tasks with the clinician. See results below: 1-10: 0% accuracy Days of the Week: drama, bever, mener, sever... 03/17: Session 1- Patient recites automatic speech tasks with the clinician. See results below: 1-10: 100% accuracy Days of the Week: Saturday, Saturday, Wender, Thlivaner, Wekaler, Sender, Fender when repeating each day individually following a model by the clinician. 03/18: Session 1: Counting 1-10 Trial one: 04/03. Trial Two: 07/06 (Eight, Ninth, Tenth, Eleventh, Twelfth - Is that what you want? I got lost. 03/19: Session 1: Counting 1-10 at 90% accuracy, Days of the week - 03/01 03/21: Patient recites automatic sequences with the following accuracy: Counting 1-10: 08/04 (error: ten-hundred) Days of the week: 01/01 (perseveration on hundred e.g., nine one hundred). Following break and spontaneous production of Saturday: 05/31 03/22: Session 1- Days of the week: T1- 01/29 provided moderate visual and verbal cues; T2- 03/01provided moderate visualand verbal cues 03/23: Session 1- Patient recites automatic speech tasks with the clinician. See results below: -: 100% accuracy Days of the Week: T1- [place],er, , nder, huster, , Saturday (using max visual cues) T2- Saturday, , , , , Saturday, Saturday (using max visual cues) 03/24: Session 2- Patient recites automatic speech tasks with the clinician. See results below: Counting -: 90% accuracy Days of the Week: , Saturday, Saturday, , Saturday, Saturday, Saturday Goal #2: Patient will name objects (real or pictured) to confrontation with >50% accuracy provided maximum verbal cues. Probe: naming an object from a fo2 multiple choice- 20% accuracy (patient struggling with repeatingthe words, producing neologisms or paraphasias) 03/15: 2nd session: Repeating name of pictured object (in spontaneous context) in the context of a written expression task: ~50% accuracy (with partial credit for spelling a word out loud accurately!) 1. 6 2. 6 3. 15 4. 15 5. 8* * spelled the word out loud correctly! 03/16: Session 1- Patient names real pictured objects to confrontation provided maximum cues (phonemic, semantic, cloze, repetition, etc.) with 0% accuracy. Target Response 1. Earth derb (max cues) 2. door dargis (max cues) 3. pants stargus (max cues) 4. boxing dargus (max cues) 5. taco targus (max cues) 03/19: Session 1: Confrontation naming of everyday color photographs 0/10 however it was noted that patient began using gestures independently with photos in 05/04 pictures (gestured hat, phone, wells, wrist watch, scissors and egg) Patient stated, I never do that before, it's fun! New Goal written. 03/21: Patient named objects in 0/5 trials due to perseveration on Stomach/Sunnik. Patient repeated names as detailed below. 03/22: Session 2- Patient names real pictured objects to confrontation provided maximum cues (phonemic, semantic, cloze, repetition, etc.) with 20% accuracy. Target Response 1. apple Basket, but its... Bicycle 2. hat askit 3. tennis Not bene, sineck 4. pillow wash 5. hand That's a nasgul. 6. horse mushick 7. helmet bicycle 8. paper hanger Oh that's um... mailed 9. stomach stomach 10. squirrel Squirrel (phonemic cue provided) 03/23: Session 1- Patient names real pictured objects to confrontation provided maximum cues (phonemic, semantic, cloze, repetition, etc.) with 0% accuracy. Target Response 1. sun Mike (imitation: sun, ) 2. road caniger (imitation: road) 3. skiing NR (imitation: ) 4. tie Skunday, skumer (imitation: Saturday) 03/24: Session 2- Patient names real pictured objects to confrontation provided maximum cues (phonemic, semantic, cloze, repetition, etc.) with 0% accuracy. Target Response 1. arm Stomach 2. dress Stomach or mistic 3. island mergic 03/25: Session 1- Patient names real pictured objects to confrontation provided maximum cues (phonemic, semantic, cloze, repetition, etc.) with 17% accuracy. Errors today were more closely related to target words. Target Response Error Type 1. zipper stomach perseveration 2. dog paws Semantic paraphasia 3. bed Dog, desk Perseveration, semantic paraphasia 4. brain suck Semantic paraphasia 5. fish stomach perseveration 6. sandwich sandwich - 03/26: Patient named pictured objects to confrontation given maximum cues with 0% accuracy today. Errors were characterized by neologisms and patient able to more closely approximate word given writtenword cues and following ANESTHESIOLOGY PHYSICIAN ASSISTANT model. Goal #3: Patient will repeat 1-2 syllable functional words, consistently across 3 trials, with >90% accuracy provided a visual model by the clinician. 03/25: Session 1- Patient repeats 1-2 syllable functional words with 50% accuracy across 3 trials foreach word, provided a visual model by the clinician. Target Response Total 1. gloves Snug, snug, snug 0/3 2. chicken Shicken, shicken, shicken 0/3 3. salt Salt, salt, salt 3/3 4. Bat Back, bat, bat 2/3 5. window Window, window, window 3 6. customer quality specialist Plumic, plumbic, plumbic 0/3 7. watch Watch, watch, watch 01/25 8. dolphin Dolphin, dolphin, dolphin 01/25 9. pizza Ditta, ditta, pittop 0/3 10. helmet Helmet, elmet, elmit 11/27 Reading Comprehension: Goal #1: The patient will identify a written phrase from a field of 2, given an auditory model with80% accuracy. 03/25: Session 1- Patient identifies a written phrase from a field of 2 given an auditory model and picture with 100% accuracy provided slow presentation and repetitions. Goal #2: The patient will identify the written word to match a given object or picture with 80% accuracy in a field of 3 (presented in a vertical orientation). 03/12: Session 1- Patient identifies the written word from a field of 3, given a picture of an object, with 53% accuracy. 03/14: Session 2- Attempted but could not complete d/t patient complaining of not being able to see stimuli d/t them being blurry. 03/15: 1st session: Patient was given a pictured object/item and then presented with three words, written by clinician in a vertical presentation and held upright for her viewing. She then used the picture to 'underline' the matching written word. She independently manipulated the picture to aid hervision. Word to picture match (f of 2 words), presented vertically: 100% accuracy 1. 13 6. 13 2. 15 7. / 3. 13 8. / 4. 15 9. / 5. 13 10. / Word to picture match (f of 3 words), presented vertically: 83% accuracy 1. 6 6. 15 2. 13 7. / 3. 15 8. / 4. 13 9. / 5. 15 10. / 03/16: Session 2- Probe: Patient identifies written 2-3 word phrases from a field of 2, given a picture of an object with 50% accuracy. 03/18: Session 1: Word to picture (field of 3 words), presented vertically: 07/04 at 80% 03/25: Session 2- Word to picture match (f of 3 words), presented vertically: 100% accuracy. 1. 15- Complete: accurate, responsive, complete, prompt, efficient 2. 15- Complete: accurate, responsive, complete, prompt, efficient 3. 15- Complete: accurate, responsive, complete, prompt, efficient 4. 15- Complete: accurate, responsive, complete, prompt, efficient 5. 15- Complete: accurate, responsive, complete, prompt, efficient 6. 15- Complete: accurate, responsive, complete, prompt, efficient 7. 13- Complete-delayed: Accurate, responsive, complete or complex, delayed 8. 15- Complete: accurate, responsive, complete, prompt, efficient 9. 15- Complete: accurate, responsive, complete, prompt, efficient 10. 15- Complete: accurate, responsive, complete, prompt, efficient 5/2: Identifying a written word to match a picture (f of 3 words): 09/06, 77% accuracy Written Expression: Goal #1: Patient will write the name of the object/item, provided a picture and it's label verbally, with 80% accuracy provided moderate verbal/visual cues. 03/25: Session 2- Patient writes the name of the object/item, provided a picture and it's label verbally, with 30% accuracy provided moderate verbal/visual cues. Target Response 1. bed raul 2. sun hathaway 3. coffee j 4. tree tree 5. shoe shy, shoe 6. hand Hard, hand 7. sheep C, l, (sheep- provided first two letters) 8. turtle Turple 9. computer Cou, cup, cu 10. unicorn Uniy, uni 5/2: Written word retrieval given a picture (3-5 letter words): 40% accuracy, given initial letter cues or multiple choice, accuracy increased to 90% 1. 8 6. 6 2. 13 7. 8 3. 12 8. 13 4. 15 9. 8 5. 10 10. 8 Augmentative Communication Goal #1: The patient will generate gestures representing basic needs with 80% accuracy in response to auditory or visual instruction. 03/19 Session 1: Patient generated gestures independently with photos in 6/10 pictures with 60% accuracy (hat, phone, wells, wrist watch, scissors and egg). 03/22: Session 2- Patient generated gestured independently with photo description task to augment communication effectively with ~75% effectiveness. 03/23: Session 2- Patient functionally communicates her basic wants and needs using gestures and provided maximum visual, verbal, gestural and contextual cues from the speech-language pathologist to Dr. Maria, her hematology doctor, via telemedicine consult. With this level of support, she was able to convey that she has been having increasing headaches for the past [address] Maria was able to communicate a plan to her regarding this involving further head imaging and medication dose management. Patient required written context words and simplified explanation with gestures of the overallencounter from the ANESTHESIOLOGY PHYSICIAN ASSISTANT. Going forward, family/caregiver education regarding communication facilitation and SCA for Ynes would be appropriate via Zoom/Facetime or in person if possible. 03/24: Session 2- Patient generated gestured independently within structured conversation to augmentcommunication effectively with ~75% effectiveness with this familiar communication partner. PATIENT/FAMILY EDUCATION: Patient/Family Education: Patient/family education was provided today including: rehab goals and questions were addressed. Topic: Patient/Family education and training was completed today including: the role of Speech-Language Pathology Aphasia questions were addressed Learner: patient Method of Education: Verbal and Written Barriers to Learning/Education: fatigue, headache pain, and presence of language impairment Patient: needs further instruction and education Family: No family present. Patient/Family Goals: Patient states I want to get better. Team Communication: Conversation with patient's nurse re: communication access (using written language) ?? Assessment /CLINICAL IMPRESSIONS: Ynes White is a female 50 y.o. 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 Today, Ynes demonstrates improvements in her awareness of errors in her written and verbal expression, since last seen by this clinician. Errors with expressive language are closer to targets and she is demonstrting improving awareness of errorswithin expressive language at the single word level. Ynes spontaneously augments her communication with gestures, facial expressions, and intonation at this time, and this is judged to be effective ~75% of the time with a familiar communication partner. She continues to benefit from an SupportedCommunication for Adults with Aphasia (SCA) approach, provided gestures, drawings, and single written context words to support her auditory comprehension. Due to her high needs for supported language, Ynes's familiar conversational partners (significant other Ever and sister Stacey Messina) would benefit from training in implementation of SCA and the plan is to attempt to arrange patient/family training on in-person on Saturday. Ynes remains appropriate for 30 min BID sessions for aphasia intervention based on her level of fatigue and headache pain. Ynes White currently presents with severe expressive and receptive aphasia, most consistent with Wernicke's type but with some deviation from typical Wernicke's type presentation. Patient appears to be able to follow some basic 1-step commands effectively provided context, models, slow auditory presentation of information, and tactile cues as needed. Repetition, object naming, word fluency,sentence completion, and responsive speech are all impaired. Ynes demonstrates a favorable response to use of gestures to assist with her auditory comprehension. Expressive language is characterized as fluent but mostly consists of word salad with many instances of jargon, neologisms, and paraphasias with occasional moments of intelligible discourse scattered throughout. Ynes's discourse could also be described as tangential and perseverative. She attempts to utilize gestures to augmenther expressive language, but is not always successful. She is also demonstrating breakdowns in reading comprehension at the short sentence level and significant deficits in written expression at the word level, compounded by impaired auditory comprehension preventing writing to dictation and impaired naming preventing written naming. These deficits impact the patient's ability to functionally comm unicate her wants, needs, and ideas and hold conversation. She presents with severe impairments in reading comprehension, however, she demonstrates some success with reading comprehension at the wordlevel, which appears to be a relative strength compared to her auditory comprehension. She exhibits significant breakdown in reading comprehension at the short sentence level. Ynes also demonstrates significant deficits in written expression at the single word level however this appears to be improving and her awareness of these errors appears better than her awareness of errors in verbal expression, although her awareness of errors within verbal expression is also improving steadily at the single word and short phrase level. She also demonstrates relative strength in copying words and sentences, as well as writing numbers. It has been determined that the patient demonstrates deficits that impact functioning in daily activities and hinder participation in life situations.??Patient currently requires assistance from others to communicate basic wants and needs and direct her medical care. Pt will continue to benefit from her needs being anticipated and simplified information presented to her. Information should be repeated and said in different ways, and augmented with pictures and gestures. The patient is demonstrating strengths in motivation and some intact basic expressive language skills which should be utilized during the patient's plan of care to maximize gains. Contextual factors that may impact the patient's ability to progress toward rehab goals include: severity of language impairment, need for physical assistance, tolerance level for therapy, pain, and depression/anxiety d/t to social isolation secondary to hospital's COVID19 no visitor policy. Based on patient's tolerance level, it is recommended that patient participate in 30 minute BID sessions initially and build toward 60 minute sessions as tolerated. Given patient's age, independence prior to admission, and social/occupational demands, she would benefit from intensive ANESTHESIOLOGY PHYSICIAN ASSISTANT intervention. Based on the patient's rehab potential, motivation, prior level of function, and the contextual factors, the patient's prognosis is considered good. It is anticip ated that the patient will make functional gains in expressive and receptive language skills with intensive skilled 1:1 speech language pathology services in the inpatient rehabilitation setting. It is anticipated that following her discharge from inpatient rehabilitation that Ynes will require a communication partner trained in SCA and she will require ongoing intensive skilled speech-language pathology services in her next setting. Functional Communication Measures ([place] [employer], 2002). The Functional Communication Measures (FCM???s) are a series of 7 point rating scales, ranging fromleast functional (Level 1) to most functional (Level 7). They have been developed by [employer] to describe different aspects of patient???s functional communication and swallowing abilities over the course of ANESTHESIOLOGY PHYSICIAN ASSISTANT intervention. ?? Spoken Language Comprehension Level 2: With consistent, maximal cues, the individual is able to follow simple directions, respond to simple yes/no questions in context, and respond to simple words orphrases related to personal needs. Spoken Language Expression Level 3: The communication partner must assume responsibility for structuring the communication exchange, and with consistent and moderate cueing, the individual can produce words and phrases that are appropriate and meaningful in context. Reading Level 3: The individual reads single letters and common words, and with consistent moderatecueing, can read some words that are less familiar, longer, and more complex. Writing Level 2: The individual writes single letters and common words with consistent maximal cueing. ?? GOALS: Psychiatric Nurse Goals: Projected Functional Communication Measures at discharge: Spoken Language Comprehension Level 4: Individual consistently responds accurately to simple yes/noquestions and occasionally follows simple directions without cues. Moderate contextual support is usually needed to understand complex sentences/messages. The individual is able to understand limited conversations about routine daily activities with familiar communication partners. Spoken Language Expression Level 4: The individual is successfully able to initiate communication using spoken language in simple, structured conversations in routine daily activities with familiar communication partners. The individual usually requires moderate cueing, but is able to demonstrate use of simple sentences (i.e., semantics, syntax, and morphology) and rarely uses complex sentences/messages. Reading Level 4: The individual reads words and phrases related to routine daily activities, and words that are less familiar, longer, and more complex. The individual usually requires moderate cueing to read sentences of approximately 5-7 words. Writing Level 3: The individual writes single letters and common words, and with consistent moderate cueing, can write some words that are less familiar, longer, and more complex. Short Term Goals: Auditory Comprehension: Goal #1: Patient will identify pictures that match auditory presentation of simple sentences in a visual field of 4-6 with >80% accuracy provided minimal cues from the clinician. Goal #2: Patient will answer simple yes/no questions with >80% accuracy provided fewer than 2 repetitions of the question. Goal #3: Patient will follow simple 1-step commands related to functional environment with >70% accuracy provided moderate verbal/tactile/visual cues in order to increase functional integration into environment. ?? Expressive Language: Goal #1: Patient will recite automatic speech tasks given moderate cues with >70% accuracy. Goal #2: Patient will name objects (real or pictured) to confrontation with >50% accuracy provided maximum verbal cues. Goal #3: Patient will repeat 1-2 syllable functional words, consistently across 3 trials, with >90% accuracy provided a visual model by the clinician. ?? Reading Comprehension: Goal #1: The patient will identify a written phrase from a field of 2, given an auditory model with80% accuracy Goal #2: The patient will identify the written word to match a given object or picture with 80% accuracy in a field of 3 (presented in a vertical orientation). Written Expression: Goal #1: Patient will write the name of the object/item, provided a picture and it's label verbally, with 80% accuracy provided moderate verbal/visual cues. Augmentative Communication Goal #1: The patient will generate gestures representing basic needs with 80% accuracy in response to auditory or visual instruction. ?? Plan RECOMMENDATIONS: Patient will continue to benefit for further ANESTHESIOLOGY PHYSICIAN ASSISTANT intervention in this setting to address aphasia management and intervention needs. ?? Recommend inpatient rehabilitation ANESTHESIOLOGY PHYSICIAN ASSISTANT services: Patient will be seen for a minimum of 5x/week @ 30minutes BID due to current tolerance level. ?? Communication Access and Shared Decision Making Recommendations Please support communication access and shared decision making ability by doing the following: ?? Support Comprehension: ?? Have a pen and paper ready when communicating. ?? Please present information slowly and simplify. Augment with drawings, diagrams, gestures and pointing. ?? Ask one question at a time. ?? Have only one person speak at a time. ?? Environmental modifications:? Simplify the environment: ?? Carryover/Discharge??and Healthcare Decision making considerations ?? Will need family support for the successful carryover of discharge recommendations. ?? Currently comprehension of non-contextual information is a barrier Ying Guevara, ANESTHESIOLOGY PHYSICIAN ASSISTANT, MS, [facility]-ANESTHESIOLOGY PHYSICIAN ASSISTANT 03/26/2020 11:57 * Tam Gentile, OT - 03/26/2020 0720 EDT [facility] Rehabilitation Therapy Inpatient Rehabilitation [facility] Occupational Therapy Encounter Note Date of Service: 03/26/2020 SUBJECTIVE: Pt reports she has some concerns about going home with Ever but overall feels like she will do well and that he will be a good support for her. She also requested to do therapy outside this morning. SESSION 1 OBJECTIVE: Start time: 929 Treatment time: [id number] Total Therapy Minutes: 60 minute(s) Interventions included: Self-Care/Home Management 15 minutes Completed self care routine at an ambulatory level to progress safety and independence with activities for safe transition home ?? completed grooming task at sink in stand, supervision for safety with mobility ?? toileting in stand with supervision for safety for mobility, transfer and clothing management/hygiene ?? Cues for full scanning and orientation to environment Therapeutic Activities 45 minutes To progress mobility and orientation/safety for self care tasks, completed the following activities: ?? Provided pt with 2-3 step directions at time for path finding, pt able to follow most steps, didask for clarification at times ?? Reviewed scanning activities for safety with mobility due to potential vision issues, with pt educated on [employer] scanning activity. Pt able to integrate this into her mobility with fair success, did not bump into things in her path, but did tend to veer to the left side. Cues to reorient to midline ?? Led skilled discussion around concerns for her transition home. Allowed pt to discuss what she was worried about and provided supportive listening and support. Pt able to identify need for prioritizing herself right now but does also worry she will be a burden to her family. ?? Walked outside with rolling walker and close superversion for safety, pt expressing positive reaction to being outside and felt overall better. Vital signs: Vital signs have been stable with interventions and were not monitored. Patient/Family Education: Topic: Benefits of activity D/C planning Safety awareness Learner: patient Method: verbal Barriers to Learning: language Outcome: verbalized understanding Team Communication: With Occupational Therapy colleague regarding plan of care ASSESSMENT: Pt tolerated therapy well this date. She is demonstrating increased safety and insight into her deficits and is incorporating this knowledge into her self care routine thus less at risk for fall or injury. She is tolerating activities for longer periods of time with less cuing for sequencing. She is progressing well towards planned discharge this week, but is now starting to express some appropriate concerns for this as well as her future. She will benefit from ongoing therapy, including family training to continue to support her and assist with a smooth transition home. Aphasia continues to be a barrier to her full participation and understanding of activities. PLAN: Family training Progress functional independence Dc next week Pager: [phone] Tam Gentile OT, 03/26/2020, 7:20 * Aida Goodman DPT - 03/25/2020 3404 EDT [facility] Rehabilitation Therapy Inpatient Rehabilitation Center [facility] Physical Therapy Progress Note Date of Service: 03/25/2020 Precautions: Mobility Precautions Activity: Level of risk of Harm B, Activity as tolerated Miscellaneous Precautions/Restrictions Additional Precautions Information: L Bone flap precautions (helmet OOB), PEG tube Subjective/Objective Subjective I feel good today! Objective Intervention Completed Today: Start time: 1400 Total Therapy Minutes: 30 minute(s) Interventions included: Gait Training: Six Minute Walk Test^ (meters) 220 meters. This test assesses distance walked over 6 minutes as a sub-maximal test of aerobic capacity/endurance. Completed with no device today. At last assessment pt completed with RW. Age/gender normative values (Prasanna, 2001) Age Gender Range for age norms 2 standard deviations around the mean (meters) Range for age norms 2 standard deviations around the mean (feet) 20-40 Male [phone] Female [phone] 41-60 Male [phone] Female [phone] (Kirsten, 2007) Age Gender 95% CI (meters) 95% CI (feet) 60-69 Male [phone] Female [phone] 70-79 Male [phone] Female [phone] 80-89 Male [phone] Female [phone] The minimal detectable change (MDC) for patients with acute stroke is 54 meters or 177 feet. (Iglesia,2008) The minimal detectable change (MDC) for patients with chronic stroke is 36.6 meters or 120 feet or 13% improved from baseline measure. (Nichol, 2005) Escobar Balance Scale (BBS)^ 41/56. This test is a 14-item objective measure designed to screen balance in adult populations. Balance is one domain of fall risk. As the score decreases, the patient may exhibit more balance deficits putting them at increased risk for falling. (Rosenberg, 2008, Maryana, 2004, Dee, 2016) Age/gender normative values for community dwelling elders (Margarito, 2002) Age Gender 95% CI 60-69 Male 55-56 60-69 Female 54-56 70-79 Male 52-56 70-79 Female 52-55 80-89 Male 51-54 80-89 Female 49-52 The minimal detectable change (MDC-95%) for patients with acute stroke is 7. (Haider, 2001, Tiana, 2016) The minimal detectable change (MDC-95%) for patients with chronic stroke is 5. (Debbie, 2012) 2nd Session Time: Start time: 1445 Total Therapy Minutes: 30 minutes Interventions completed today: Vital Signs: Pre PX=668/73 After ambulating 50' 107/78 Therapeutic activities: Reviewed discharge planning including family training with her significant other on Saturday. The recommendation for use of a rolling walker upon discharge to maximize independence and safety with out of bed mobility. The role and goals of physical therapy following discharge from [facility]. The results of tests and measures. Risk of falls and fall prevention. Neuromuscular re-education: Standing on foam with feet apart with close supervision - nominal sway, one instance of needing to self correct her balance 30 seconds x2 Standing on foam with feet apart and eyes closed with close supervision to minimal contact assist to maintain stability. 30 seconds Patient/Family Education: Topic: See above Learner: patient Method: verbal Barriers to Learning: cognitive deficits and language/aphasia Outcome: verbalized understanding Team Communication: With case management regarding recommendation for a rolling walker. Relevant Objective Findings: AROUSAL, ATTENTION, AND COGNITION: Much improved arousal though intermittently requires seated rest breaks during sessions. Oriented to person, situation, and place. Difficult to assess further due to expressive aphasia. Defer to OT/ANESTHESIOLOGY PHYSICIAN ASSISTANT for details. CARDIOPULMONARY: 6 Min Walk - Distance (m): 220 meters See vitals documented above. INTEGUMENTARY/ANTHROPOMETRIC CHARACTERISTICS: Craniectomy incision on L Lateral scalp appears to be well healed. PEG tube in abdomen. Head to toe not visualized as pt was fully clothed, defer to RN/MD notes for details. RANGE OF MOTION AND JOINT INTEGRITY: At eval: Active Range of Motion: Within normal limits except as noted Upper Quarter: Assessed functionally due to pt difficulty with instructions. Left Upper Extremity: functionally appears WNL Right Upper Extremity: functionally appears WNL Cervical Spine: looks about room with no apparent deficit ?? Lower Quarter: WFL MUSCLE PERFORMANCE: At eval: Strength: assessed functionally in sitting, pt with difficulty following instructions for formal MMT Upper Quarter: defer to OT for details Left Upper Extremity: >3/5 grossly Right Upper Extremity: >3/5 grossly Cervical Spine: NE ?? Lower Quarter: grossly 4/5 throughout. Not formally tested due to time constraints SENSATION, REFLEXES, AND NERVE INTEGRITY: Light Touch Sensation: Upper Quarter: unable to formally assess due to expressive and receptive aphasia and cog deficits Lower Quarter: unable to formally assess due to expressive and receptive aphasia and cog deficits, indicates numbness on her right thigh/hip NEUROMOTOR FUNCTION/DEVELOPMENT: Motor control: able to isolate movements at all joints functionally. Movement patterns: antalgic gait, hesitant movement at times though improved from eval and previousprogress note Coordination: no ataxia noted, intact heel to torre Speech/Communication/Oral motor control: expressive aphasia, speech occasionally unintelligible, speech unrelated to topic of conversation at times though much improved from eval and previous progress note. Please refer to OT/ANESTHESIOLOGY PHYSICIAN ASSISTANT for detail BALANCE, MOBILITY, AND GAIT: Escobar Balance Score (n/56): 41 Balance: Sitting Balance Static: Independent Dynamic: Independent Standing balance Static: supevision without UE support Dynamic: supervision to reach outside KATHRYN without UE support Mobility: Bed Mobility: Sit->supine: independently with flat bed and no rails. Supine- >sit: independently with flat bed and no rails. Transfers: Bed < > Chair: stand-step with supervison, cues and assistance of 1 Wheelchair: Not a goal. Gait: The patient ambulates with min contact assist of 1 using no device for 750' feet or with distant supervision with RW 1000'+. Gait deviations: increased toe out angle B, decreased stance time on L, occasionally demonstrates antalgic gait, decreased foot clearance B, upper body slightly guarded through improved since previous progress note, no reciprocal trunk rotation Stairs: Patient negotiates with min contact assist of 1 up and down 20 stairs with 1 rails. SELF-CARE, HOME MANAGEMENT, WORK, AND LEISURE: Defer to OT for details. OUTCOMES: PT Outcomes 03/04/2020 03/05/2020 03/07/2020 03/08/2020 5-Time Ogh-ej-Ikonx (sec) 32 6 Min Walk - Distance (m) 18.29 120.7 Escobar Balance Score (n/56) 36 Gait Speed - Distance (M) 3.05 Gait Speed - Time (sec) 14 Gait Speed - Velocity (meters/sec) 0.22 PT Outcomes 03/11/2020 03/25/2020 5-Time Lpf-kv-Kqhaw (sec) 30 6 Min Walk - Distance (m) 106.07 220 Escobar Balance Score (n/56) 41 Gait Speed - Distance (M) 10 Gait Speed - Time (sec) 21 Gait Speed - Velocity (meters/sec) 0.48 Assessment/Plan Assessment The patient continues to be appropriate for skilled physical therapy on acute rehab to address the physical therapy diagnosis of impaired mobility s/p L ICH s/p craniectomy. The patient???s primary impairments include impaired reactive and anticipatory postural control (per Escobar) and Rhomberg, impaired Gait Speed, impaired activity tolerance and decreased endurance, painin head and stomach, reflux and emesis at times, fatigue and intermittent decreased arousal. 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 Pt is making steady gains with therapy in the acute rehab setting. She demonstrates MCID improvement in 6MWT indicating improved activity tolerance and endurance, she is still below age and gender related norms for balance per the ESCOBAR Balance test. She has been consistently participating in therapy this week demonstrating improvement in activity tolerance as compared to last week. Pain and fatigue continue to be barriers however pt is doing well with shorter sessions spaced throughout the day with rest breaks in between. Therapy has been limited at times due to pt requiring ongoing scans/workup. It is anticipated that the pt will continue to progress well in the acute rehab setting to allow for family training, issuing of recommended equipment, and discharge planning. Pt's significant other is scheduled to attend therapy session for family training on Saturday03/28/20. Physical Therapy Prognosis: The patient is making good progress toward tentative discharge date of 03/30/20. Expect patient to reach mod I level with an assistive device for household mobility and supervision to contact minimal assist x 1 for stairs. Barriers to discharge: will need family training and a rolling walker Short-Term Goals: 1 week 1. Pt will demonstrate stand step transfers with supervision x 1 to all sitting surfaces in her room. MET 2. Pt will ambulate 100-150' c supervision x 1 in order to work up to household distance ambulation. MET 3. Pt will tolerate completion of Escobar and 6MWT to establish baseline measures for progress. MET 4. Pt will complete four 6.5 stairs ascending and descending with B rails with min contact A x 1. MET ? Long-Term Goals: 2-3 weeks 1. The patient will be able to perform stand step transfer c mod I in order to access all sitting surfaces. IN PROGESS 2. The patient will be able to ambulate 100-250' covering household distances c mod I in order to access home environment. IN PROGRESS 3. The patient will be able to perform HEP independently with handout. - MET 4. Pt will demonstrate stable vital signs with all functional mobility noted above. MET 5. Pt and family with no further questions regarding diagnosis and POC. MET 6. Pt will demonstrate MCID improvement in 6MWT indicating improved ambulation endurance. MET 7. Pt will demonstrate LALO improvement in Escobar Balance Assessment indicating decreased fall risk. IN PROGRESS Plan Treatment/Intervention: Physical therapy to be provided by physical therapist and/or physical therapist marketing assistant manager as appropriate Frequency: 2 times per day for at least 5 days a week Intensity: 30-60 minutes/session, 90 minutes per day Duration: During rehab admission Interventions may include: Family training for ambulation, path finding, and stairs, ambulation outdoors, trial mod I transfers and ambulation in the room with RW as appropriate Further Data: Functional Gait Assessment Patient/Family Education: caregiver training prior to DC - ambulation, stairs, path finding Equipment Needs: Rolling walker Discharge Destination: Home with 24 hr assist/supervision Discharge Services: Home health physical therapy Other recommendations: None Contact information: Pager: [phone] AIDA GOODMAN DPT 03/25/2020 16:50 * Isamar Angel - 03/25/2020 9602 EDT ED notes SO Ever Linda is coming on Saturday for education with nursing and training with therapies, to start at 9 am. Scheduling has been informed. Family is not planning on visiting this weekend, as Ever will be here on Saturday. Isamar Downs RN CM * Jaden Rutherford MD - 03/25/2020 1520 EDT [facility] Inpatient Acute Rehabilitation Unit Durable Medical Equipment Prescription (Non-Wheelchair) Name: Ynes White Date of : 1970 Address: [address] [place] [id number] (home) Insurance: Payor[place] / Plan[place] / Product Type: [place] GL / Referring Physician: Jaden Rutherford, * Primary Physician: Alejandrina Carrillo Medical Diagnosis: Patient Active Problem List Diagnosis Code ??? Back pain M54.9 ??? Chronic low back pain M54.5, G89.29 ??? Encounter for insertion or removal of intrauterine contraceptive device Z30.9 ??? Nicotine dependence, unspecified, uncomplicated F17.200 ??? Perimenopausal N95.1 ??? Post concussion syndrome F07.81 ??? Tobacco abuse Z72.0 ??? Cerebral venous sinus thrombosis G08 ??? Cerebral venous thrombosis G08 ??? Brain herniation (HCC-CMS) G93.5 ??? Cerebral edema (HCC-CMS) G93.6 ??? Left-sided nontraumatic intracerebral hemorrhage (HCC-CMS) I61.9 ??? Primary hypercoagulable state (HCC-CMS) D68.59 Height: 170.2 cm (67) Weight : 83.5 kg (184 lb) Body mass index is 28.82 kg/m??. Type of Equipment Prescribed: rolling walker Prescription Start Date: 03/25/2020 Purpose of Equipment: To increase independence of safety with ADLs. Medical Necessity: yes due to risk for falls Patient Functional Level: supervision ambulating on level surfaces with a rolling walker Duration needed: 99+ Therapist recommending equipment: AIDA GOODMAN DPT 03/25/2020 15:[address] Neal Moscoso: [id number] Dr Jaden Rutherford: [id number] Dr Vashti Way: [id number] * Alicia Gabriel RD - 03/25/2020 1431 EDT Nutrition Assessment Note: [facility] Alicia Gabriel RD, RD, CD ([facility] Dietitian Phone [phone]) Patient Name: Ynes White Rehab Admission Date: 03/02/2020 Hospitalization at [facility]: 02/14/2020 Rehab Admission Dx: Left-sided nontraumatic intracerebral hemorrhage (HCC-CMS) Reason for Visit: Follow Up BACKGROUND DATA Clinical Summary: Ynes White is a 50 y.o. female admitted to acute rehab with left temporoparietal hemorrhage status post decompressive craniectomy; s/p PEG placement 02/18/20 Past Medical History: Diagnosis Date ??? Left-sided nontraumatic intracerebral hemorrhage (HCC-CMS) 03/02/2020 Status post decompressive hemicraniectomy Interview/Subjective: Patient reports that she is eating better and enjoys drinking the Boost shakes. Current Nutrition Orders: DIET REGULAR Oral supplement: Boost Plus Enteral: Free water 120 ml every 8 hours via PEG; TF dc'd 03/10/20 Estimated Nutrition Intake: 2-3 Boost Plus daily; ~25-50 % trays Nutrition-Focused Physical Findings: GI: last BM 03/21/20 Skin: surgical laceration/incision Edema: none Anthropometrics: Height: 170.2 cm (67) Wt Readings from Last 6 Encounters: 03/21/20 83.5 kg (184 lb) 03/02/20 89.9 kg (198 lb 1.6 oz) 02/14/20 Weight-98.5 kg (217 lbs) BMI: Body mass index is 28.82 kg/m??. Weight Change: weight loss of 31 lbs over 2.5 weeks, ? Accuracy of weight readings Nutrition-Related Lab Values of Concern: Lab Results Component Value Date/Time HGB 11.6 03/21/2020 06:15 HCT 34.4 (L) 03/21/2020 06:15 WBC 5.16 03/21/2020 06:15 NA 134 (L) 03/21/2020 06:15 K 5.2 (H) 03/21/2020 06:15 CO2 26 03/21/2020 06:15 CL 100 03/21/2020 06:15 BUN 34 (H) 03/18/2020 18:00 CREATININE 0.65 03/21/2020 06:15 HGBA1C 5.4 02/14/2020 17:48 PHOS 4.6 (H) 03/07/2020 06:50 MG 1.7 03/02/2020 06:12 TRIG 176 02/18/2020 05:44 ALT 68 (H) 03/18/2020 18:00 AST 40 03/18/2020 18:00 ALKPHOS 123 03/18/2020 18:00 TBIL <0.5 03/18/2020 18:00 Nutrition-Related Medications: Current Facility-Administered Medications: acetaminophen (TYLENOL) tablet 650 mg oral Q4H PRN aspirin chewable tablet 81 mg oral DAILY bisacodyL (DULCOLAX) suppository 10 mg rectal Q48H PRN calcium carbonate (TUMS) 200 mg calcium (500 mg) per chewable tablet tablet,chewable 1 Tab oral QIDPRN docusate sodium (COLACE) capsule 100 mg oral BID PRN enoxaparin (LOVENOX) injection 60 mg subcutaneous Q12H guaiFENesin tablet 200 mg oral Q6H PRN HYDROmorphone (DILAUDID) tablet 2 mg oral Q4H PRN lactulose (CHRONULAC) 20 gram/30 mL solution 30 mL oral BID PRN melatonin tablet 5 mg oral QHS multivitamin (FLINTSTONES) chewable tablet 1 Tab oral DAILY ondansetron (ZOFRAN-ODT) disintegrating tablet 4 mg oral Q8H PRN pantoprazole (PROTONIX) tablet 40 mg oral DAILY papain-alpha amylase-cellulase (CLOG ZAPPER) 2-5 mL feeding tube PRN polyethylene glycol 3350 (MIRALAX) packet 17 g oral Daily PRN senna (SENOKOT) tablet 1 Tab oral BID PRN ASSESSMENT Patient with fair po intake. She is eating small meals and taking Boost Plus as a source of supplemental nutrition. Food preferences relayed to kitchen staff. Small portions are being sent per nursing/patient request. Weight has stabilized recently. Mild hyponatremia and hyperkalemia noted. Estimated Daily Nutritional Needs:??using??adjusted??weight of 73??kg 25-30??(using 73??kg) = 6960-8822??kcals/day 1.2??g/kg protein (using 73??kg) = 88??g protein/day 25??mL/kg fluid (using 73??kg) = 1825??mL fluid/day Nutrition Risk Level: Low (3) MEDICAL NUTRITION THERAPY PLAN & RECOMMENDATIONS -Monitor lytes -Boost Plus with meals and prn -Will send small portions and foods of preference -Monitor po intake, weights and stool pattern -RD following * Jaden Rutherford MD - 03/25/2020 1148 EDT Physiatry Progress Note Admit Date: 03/02/2020 Hospital Day: LOS: 23 days Date of Service: 03/25/2020 Chief Complaint: Left temporoparietal hemorrhage status post decompressive craniectomy, setting of central venous thrombosis 02/14/2020 Subjective: Having a better day today, no headache this morning. No shortness of breath or lightheadedness. No GI distress today. Current Facility-Administered Medications: acetaminophen (TYLENOL) tablet 650 mg oral Q4H PRN aspirin chewable tablet 81 mg oral DAILY bisacodyL (DULCOLAX) suppository 10 mg rectal Q48H PRN calcium carbonate (TUMS) 200 mg calcium (500 mg) per chewable tablet tablet,chewable 1 Tab oral QIDPRN docusate sodium (COLACE) capsule 100 mg oral BID PRN enoxaparin (LOVENOX) injection 60 mg subcutaneous Q12H guaiFENesin tablet 200 mg oral Q6H PRN HYDROmorphone (DILAUDID) tablet 2 mg oral Q4H PRN lactulose (CHRONULAC) 20 gram/30 mL solution 30 mL oral BID PRN melatonin tablet 5 mg oral QHS multivitamin (FLINTSTONES) chewable tablet 1 Tab oral DAILY ondansetron (ZOFRAN-ODT) disintegrating tablet 4 mg oral Q8H PRN pantoprazole (PROTONIX) tablet 40 mg oral DAILY papain-alpha amylase-cellulase (CLOG ZAPPER) 2-5 mL feeding tube PRN polyethylene glycol 3350 (MIRALAX) packet 17 g oral Daily PRN senna (SENOKOT) tablet 1 Tab oral BID PRN Objective/Physical Exam: VS: Patient Vitals for the past 8 hrs: BP Pulse Heart Rate Resp Temp 03/25/20 1000 108/73 99 -- -- -- 03/25/20 0905 117/73 -- 98 BPM 20 35.9 ??C (96.6 ??F) Pain: Patient Vitals for the past 8 hrs: Numeric Pain Level (Scale 1-10) Asleep 03/25/20 0927 7 -- 03/25/20 0849 7 -- 03/25/20 0711 0 Reassessed, sleeping comfortably, RR WNL. 03/25/20 0449 -- Reassessed, sleeping comfortably, RR WNL. 03/25/20 0351 7 -- Weight: Weight : 83.5 kg (184 lb) Glucose Readings (last 8 readings): No results for input(s): GLUCOSEFINGE in the last 72 hours. I&O: Intake/Output Summary (Last 24 hours) at 03/25/2020 1148 Last data filed at 03/25/2020 1000 Gross per 24 hour Intake 240 ml Output -- Net 240 ml Exam: Gen: Alert, pleasant, no distress HEENT: Left decompressive hemicraniectomy site slightly sunken. Surgical incision with small areas of eschar. Evidence of a right homonymous hemianopsia. No facial droop. Neck supple. Mucosal membranes are moist Skin: no rashes, continued eschar over the craniectomy incision. Cardiac: Cor RRR Pulmonary: clear to auscultation bilaterally Abdomen: normal bowel sounds, soft, nontender to palpation, PEG tube has a small split in it just above the bumper, with no further leaking after placing an adhesive over the leak (tape). Musculoskeletal: no joint tenderness, deformity or swelling, no muscular tenderness noted, full range of motion without pain Neuro: Expressive greater than receptive aphasia affect: Alert Motor: No focal motor weakness. There is some relative right lower extremity weakness compared to the other extremities but does not appear clinically significant. Tone normal Reflexes: trace Sensation: No extinction no clear focal sensory loss Cerebellar: no tremors Labs: I have personally reviewed CBC: Lab Results Component Value Date WBC 5.16 03/21/2020 RBC 3.71 (L) 03/21/2020 HGB 11.6 03/21/2020 HCT 34.4 (L) 03/21/2020 MCV 93 03/21/2020 MCH 31.3 03/21/2020 MCHC 33.7 03/21/2020 PLT 220 03/21/2020 NEUTROABS 2.93 03/18/2020 BMP: Lab Results Component Value Date NA 134 (L) 03/21/2020 K 5.2 (H) 03/21/2020 CL 100 03/21/2020 CO2 26 03/21/2020 BUN 34 (H) 03/18/2020 CREATININE 0.65 03/21/2020 CALCIUM 7.5 (L) 03/18/2020 MG 1.7 03/02/2020 PHOS 4.6 (H) 03/07/2020 LABALBU 2.6 (L) 03/18/2020 Assessment/Problems: (update problem list daily as appropriate) Patient Active Problem List Diagnosis Date Noted ??? *(H)Left-sided nontraumatic intracerebral hemorrhage ([facility]) 03/02/2020 Priority: Medium Status post decompressive hemicraniectomy ??? Brain herniation ([facility]) 02/17/2020 Priority: Medium ??? Cerebral edema ([facility]) 02/17/2020 Priority: Medium ??? 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 (H)Cerebral venous thrombosis 02/14/2020 Priority: Medium ??? Encounter for insertion or removal of intrauterine contraceptive device 02/12/2020 Priority: Medium ??? Nicotine dependence, unspecified, uncomplicated 02/12/2020 Priority: Medium ??? Perimenopausal 02/12/2020 Priority: Medium ??? Post concussion syndrome 02/12/2020 Priority: Medium ??? Tobacco abuse 12/02/2012 Priority: Medium ??? Chronic low back pain 10/13/2012 Priority: Medium ??? Back pain 09/25/2012 Priority: Medium ??? Primary hypercoagulable state ([facility]) 03/23/2020 Class: Permanent Thrombosis Events A. 11/17/2019: [...] issue. Treatment and prevention A. Will need snf anticoagulation - agent TBD Plan: 1. Left frontal intraparenchymal hemorrhage: Status post decompressive craniectomy. Patient with residual mild right-sided weakness, significant expressive and receptive aphasia, dysphagia, right homonymous hemianopsia. Full PT, OT, ANESTHESIOLOGY PHYSICIAN ASSISTANT to address mobility, self care communication and swallowing fun ction. 24 hour rehab nursing for self care deficits. Continued intermittent headache, but no acute changes noted on recent CT scan of the head or MRI venogram. Helmet on when out of bed. Diet advanced to regular consistency. 2. 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 Evidence of left IJ, sigmoid and transverse sinuses as well. THP follow-up appreciated and she will remain on heparin, continue to monitor levels. As discussed with Dr. Maria, it is reasonable to get a MR venogram to see if there is a secondary etiology of her headache including progressive thrombosis, or hemorrhage. 3. Right upper lobe pulmonary embolism, left upper extremity DVT: Now on therapeutic dose Lovenox. ?? 4. History of anxiety/depression: Monitor clinically. Doing well with the Seroquel taper. Consider medical psychology consultation as language deficits allow. She has listed allergies to citalopram and duloxetine. 5. Nutrition: PEG tube placed 02/18/2020. Anticipate removing the PEG tube on 03/28/2020. Jaden Rutherford MD 03/25/2020 11:48 * Eliza Douglas, OT - 03/25/2020 0992 EDT Images from the original note were not included. [facility] Rehabilitation Therapy Inpatient Rehabilitation [facility] ?? Occupational Therapy Progress Note ?? Date of Service:03/25/2020 ? Subjective/Objective Subjective I hope he can do this Comment following shower with OT with 2 episodes of LOB. ?? Objective SESSION 1 Interventions Completed Today: Start time: 10:30 Treatment time: 40 Total Therapy Minutes: 40 minute(s) ?? Intervention included: Self care: Shower: pt ambulated to the shower with min contact assist. Walk in shower with shower seat. Pt washed with min contact assist and set up from a sitting position. Stood to wash bottom with contact assist and holding grab bar pt became dizzy and was assisted to sitting. After a brief rest in sitting, pt indicated feeling better, CGA to stand to rinse soap from bottom and had a second episode of dizziness and was assisted to sitting. Pt was assisted to towel dry, and transfer to wheelchair to return to her room. Assisted to bed. Vitals taken in supine: 108/73 HR 99. Nsg notified. ??Pt verbalizing anxiety about discharge and concern over her care needs following recent LOB. SESSION 2 Interventions Completed Today: Start time: 11:30 Treatment time: 30 Total Therapy Minutes: 30 minute(s) ?? Intervention included: SElf care: Orientation: Pt identified todays date on a calendar without hesitation. Safety: Pt identified people she would call in an emergency. She did not recall their phone numbersand indicated having a written list next to the phone would be helpful. List completed in large print constructed. Pt identified people to include: Hola Curtis Mark, her doctor and 911. With cues pt identified 911 and demonstrated proper dialing. SESSION 3?? Interventions Completed Today: Start time: 13:15 Treatment time: 30 Total Therapy Minutes: 30 minute(s) Intervention included: Self care: Ambulated to LSR with min contact assist. Hot meal prep: grilled cheese Min contact to retrieve all necessary items from fridge, cabinets and drawers. Pt immediately identified and corrected a problem when there was smoke from the burner (from someone previously). Safely managed burner - cues to turn pot handle to the side. Intermittent episodes of head pain that had pt stopping and holding her head. Ambulated back to room with min contact assist. Vital Signs: Vital signs have been stable with interventions and were monitored prior to OT session Patient/Family Education: Topic: shower safety Safety awareness Learner: patient Method: verbal and demonstration Barriers to Learning: cognitive deficits and language Outcome: verbalized understanding and returned demonstration ?? Team Communication: With PT regarding care this date ?? In this reporting period 03/15/2020 to 03/25/2020, the patient has been seen by Occupational Therapy. Interventions have included: Occupation Based Activity - Basic Activities of Daily Living, Occupation Based Activity - Instrumental Activities of Daily Living, Purposeful Activity, Preparatory Method - Exercise, Preparatory Method - Neuromuscular Education and Patient/Family Education ?? Relevant Objective Findings: Body Functions and Performance Skills: Cardiovascular/Respiratory Systems Function: vital signs have been recorded by nursing and stable with interventions until today when she appeared to have 2 episodes of low BP. ?? Mental Functions: Arousal/Alertness: Alert Best Verbal:??verbal. ??Spontaneous verbalization -pt attempting to verbalize and communicate more,does have expressive and receptive aphasia affecting her communication skills. She is improving with more frequent appropriate use of words. Orientation Level: Oriented to person, time, place and some of medical situation however difficult to fully determine due to aphasia. Insight: Pt is now correctly ringing for the nurse. She is fully aware of approaching discharge date and demands on her friend Ever for care. She is asking/gensuring appropriate questions about her g tube and therapy post dc. ?? Sensory Functions:? Hearing:??grossly intact. ?? Vision screen was completed on 03/15/2020 - see note for details. Deficits noted in -ocular ROM -Pursuits -Saccadic (rapid) eye movements -vergence -visual harrell Neuromusculoskeletal and Movement Related Functions:? Range of motion: Pt has full active range of motion throughout bilateral upper extremities Strength: Pt has grossly 4-5/5 strength throughout bilateral upper extremiities ?? Skin and Related Structure Functions:?? Head wound: ??healing incision. Abdomin: ??PEG with dressing intact - scheduled to be discontinued prior to discharge ? Areas of Occupation and Performance Skills: ?? Basic Activities of Daily Living:? Feeding:??Intake is low. PEG in place. Best if small amounts are presented in individual small bowls - less visually stimulating. Grooming:??Pt requires assist for set up then supervision for safety and thoroughness for task Bathing:??Sponge bath - Supervision and occasional assist for bathing, cues for sequencing. Shower: Today mod- max assist due to LOB when standing in the shower. - See above. Upper Body Dressing:?? supervision for safety Lower Body Dressing:??Supervision for safety Toileting:??Supervision Toilet Transfer:??supervision for safety, FWW walker ambulated with gait belt high (due to PEG) from bed to BR. Tub Transfer:??walk in shower with min contact assist Functional Mobility: min contact assist. Supervision supine to-from sit, sit to stand ?? Instrumental Activities of Daily Living:? Not formally assessed.? Rest and Sleep:? Pt is able to sleep through the night, able to fall asleep and stay asleep. Meds taken to assist with sleeping. She has had increased reports of difficulty sleeping as d/c approaches ?? Work:? 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 Leisure:?? Likes playing cards ?? Social Participation:? Pt using phone for talking with friends and family, aphasia is a barrier to full communication Pt has a boyfriend - Ever. Sister Stacey Messina Brother Ken ? Assessment/Plan Assessment This pt is a??50??year old female admitted to inpatient acute rehabilitation on 03/02/2020??s/p??craniectomy for hematoma evacuation on 02/16/2020. She is making slow gains in therapy, with increased participation in self care tasks and therapy activities, increased safety with mobility for self care activities. Her performance fluctuate due to intermittent head pain, and occasional nausea. She continues with significant global aphasia making it difficult to get a complete and accurate picture of her cognition vs apraxia and visual impairment. Vision impairments are noted and impact her overall safety and independence with all activities. Acute inpatient therapy continues to be appropriate for Ynes as she is making slow and steady gains in all areas, but her ongoing impairments continue to limit her safety. She is far from her prior level of function as an independent working adult in our community. Goal is to return home with 24hr support. She is on track towards set goals below. ?? GOALS: ?? Short Term Goals:?10 days ?? Appropriate use of call miranda MET 03/25/2020 ?? Min assist for sequencing morning routine tasks MET 03/15/2020 ?? Tolerate 60 min OT session MET 03/15/2020 ?? Complete LB care with supervision only post set up MET 03/15/2020 ?? Complete UB care with supervision only post set up MET 03/15/2020 ?? Oriented x 3 using compensatory strategies PROGRESSING 03/15/2020 Goals set 03/15/2020: ?? Pt will be independent with morning self care routine at an ambulatory level with Adaptive equipment for safety as needed PROGRESSING 03/25/2020 ?? Pt will complete simple cold meal preparation with supervision for safety at an ambulatory levelwith adaptive equipment as needed PROGRESSING ?? Pt will complete dynavision testing with more than 50 hits as a measure of improved scanning to return to instrumental activities of daily living PROGRESSING 03/25/2020 ?? Pt will complete shower activity with supervision for safety PROGRESSING 03/25/2020 ?? Pt will demonstrate independence with calling 911 for support if needed with medical emergency PROGRESSING 03/25/2020 ?? Snf Goals:?for 03/30/2020 ?? Supervision to complete morning care routine. ?? Independent with medication management using pill box. ? Pt will demonstrate proper safety awareness with self-care tasks ? Complete simple hot meal prep with supervision. ? Pt will demonstrate modified independence with communicating language issues to friends for addedsupport with functional communication ? Plan Intervention: Occupational therapy treatment for 60-90 minutes a day 6 times a week for 6 day(s) Interventions include: Occupation Based Activity - Basic Activities of Daily Living, Occupation Based Activity - Instrumental Activities of Daily Living, Purposeful Activity, Preparatory Method - Exercise, Preparatory Method - Neuromuscular Education and Patient/Family Education ?? Further Data: Dynavision, BITs, meal preparation, shower routine, med management Patient/Family Education: Activity modification, safety with vision scanning, family training. Family training to begin on Saturday03/28/2020 Discharge Plan: home with friend Ever moving in for 24 hr support. ?Eliza Douglas, OT, 03/25/2020 ?? * Oliva Martinez, CCC-ANESTHESIOLOGY PHYSICIAN ASSISTANT - 03/25/2020 0836 EDT Speech-Language Pathology Daily and Current Progress Note ANESTHESIOLOGY PHYSICIAN ASSISTANT Diagnosis: Aphasia Medical Diagnosis: Cerebral venous thrombosis and resultant intraparenchymal hemorrhage in the leftfrontotemporal area Date of Onset: 02/14/20 Date of Referral: 03/02/20 Subjective/Objective SUBJECTIVE: Session 1: Trying to be funny. I gotta listen to the whole thing. It's funny. When I say it it sounds right, but it's wrong, and when I say it right, it's wrong. I have a lot to learn about how I still got here. I don't know why I was here. Session 2: Whoa, I can't keep track. I'm not remembering very well today. OBJECTIVE: Date of Service: 03/25/2020 Session One: Start Time: 1000 Total Therapy minutes: 30 minute(s) c/c tx Second Session: Start Time: 1100 Total Therapy minutes: 30 minute(s) c/c tx Current Treatment Objectives: Auditory Comprehension: Goal #1: Patient will identify pictures that match auditory presentation of simple sentences in a visual field of 4-6 with >80% accuracy provided minimal cues from the clinician. 03/25: Session 1 - Ynes identifies pictures that match auditory presentation of simple sentences in a visual field of 4-6 with 86% accuracy provided maximum visual, verbal and gestural cues for information processing, active listening and repetition. Goal #2: Patient will answer simple yes/no questions with >80% accuracy provided fewer than 2 repetitions of the question. 03/23: Session 1- Patient answers simple yes/no questions with 40% accuracy provided fewer than 2 repetitions of the question. 1. 6- Error: Inaccurate attempt at the task item 0 repetitions 2. 13- Complete-delayed: Accurate, responsive, complete or complex, delayed 1 repetitions 3. 13- Complete-delayed: Accurate, responsive, complete or complex, delayed 0 repetitions 4. 15- Complete: accurate, responsive, complete, prompt, efficient 0 repetitions 5. 13- Complete-delayed: Accurate, responsive, complete or complex, delayed 0 repetitions 6. 6- Error: Inaccurate attempt at the task item 0 repetitions 7. 6- Error: Inaccurate attempt at the task item 1 repetitions 8. 6- Error: Inaccurate attempt at the task item 2 repetitions 9. 6- Error: Inaccurate attempt at the task item 0 repetitions 10. 6- Error: Inaccurate attempt at the task item 0 repetitions Goal #3: Patient will follow simple 1-step commands related to functional environment with >70% accuracy provided moderate verbal/tactile/visual cues in order to increase functional integration into environment. 15: Session 2- Patient follows simple 1-step commands related to environment with 0% accuracy independently. Accuracy increases to 90% accuracy following a model by the clinician with slowed auditory presentation of directions. 03/10: Session 1- Patient follows simple 1-step commands related to environment with 0% accuracy independently. Accuracy increases to 90% accuracy following a model by the clinician with slowed auditory presentation of directions. 03/12: Session 1- Patient follows simple 1-step commands related to environment with 0% accuracy independently. Accuracy increases to 62% accuracy following a model by the clinician with slowed auditory presentation of directions. 03/14: Session 2- Patient follows simple 1-step commands related to environment with 100% accuracy following a model by the clinician with slowed auditory presentation of directions. 03/15: / session: Patient followed 1 step commands in the context of therapy tasks today giveninitial demonstration. 03/16: Session 2- Patient follows simple 1-step commands related to environment with 90% accuracy following a model by the clinician with slowed auditory presentation of directions. 03/17: Session 1- Patient follows simple 1-step commands related to environment with 100% accuracy following a model by the clinician with slowed auditory presentation of directions. Patient completed1 of the commands independently without a model from the clinician today. 03/18: Session 1: Followed 2/10 simple 1 step commands independently. Patient followed ANESTHESIOLOGY PHYSICIAN ASSISTANT model with 100% accuracy. 03/19: Session 1: Followed 4/10 simple one step commands independently. Followed ANESTHESIOLOGY PHYSICIAN ASSISTANT model with 90% accuracy (blow a kiss, look out the window, big smile) 03/21: Followed 6/6 simple one-step commands given clinical model. Upon delayed repetition of the same commands, patient followed 3/6 simple one-step commands given additional repetition. 03/22: Session 1- Patient independently follows 1-step directions with 20% accuracy. Accuracy improves to 90% following a model by the clinician. 03/23: Session 1- Patient independently follows 1-step directions with 30% accuracy. Accuracy improves to 100% following a model by the clinician. 03/24: Session 1- Patient follows 1-step directions (adjective + noun) using the [employer] Advanced Comprehension ryne on the iPad with 28% accuracy provided maximum repetitions and slowed presentation. Expressive Language: Goal #1: Patient will recite automatic speech tasks given moderate cues with >70% accuracy. 03/08: Session 1- Patient recites automatic speech tasks with the clinician. See results below: 1-10: 100% accuracy following a model The Alphabet: Unable to perform in unison Months of the Years: Attempted to have patient repeat each month after the clinician: November, December, (jargon), (jargon), , June, April medication, June compation, sincation medication,ekaterina, French, karthikgus Musa, Liliana 03/09: Session 1- Patient recites automatic speech tasks with the clinician. See results below: 1-10: 100% accuracy following a starter cue one... The Alphabet: T1: A, me, S, d, 8, q, A, me, d, ec, q, g, h, eed, h ; T2: Patient was able to achieve 50% in unison with the clinician but eventually perseverated on w Days of the Week: Patient perseverated on w, k despite max cues, models, and attempts to perform in unison Session 2- Patient recites automatic speech tasks with the clinician. See results below: 1-10: 80% accuracy following a repetition of the instructions; 80% accuracy in trial 2 following a repetition of the instructions. The Alphabet: A, 7 you mean? following max cues and models Days of the Week: Patient perseverated on w, k despite max cues, models, and attempts to perform in unison 03/10: Session 1- Patient recites automatic speech tasks with the clinician. See results below: 1-10: 100% accuracy The Alphabet: a, q, q, jews, each, l, l, elf Days of the Week: w, q, w, q, w, q, l, q, l, q 03/12: Session 2- Patient recites automatic speech tasks with the clinician. See results below: 1-10: 90% accuracy The Alphabet: l, n, h, stomich, a, m, h, m, etch, is it etch? Days of the Week: elmen, elmen threemen, riley three hundred, h, h, eight? No, stomach 03/14: Session 2- Patient recites automatic speech tasks with the clinician. See results below: 1-10: 90% accuracy Days of the Week: feminal, lessons, lezimen... 03/16: Session 1- Patient recites automatic speech tasks with the clinician. See results below: 1-10: 0% accuracy Days of the Week: drama, bever, mener, sever... 03/17: Session 1- Patient recites automatic speech tasks with the clinician. See results below: 1-10: 100% accuracy Days of the Week: Saturday, Saturday, Wender, Thlivaner, Wender, Sender, Fender when repeating each day individually following a model by the clinician. 03/18: Session 1: Counting 1-10 Trial one: 04/03. Trial Two: 07/06 (Eight, Ninth, Tenth, Eleventh, Twelfth - Is that what you want? I got lost. 03/19: Session 1: Counting 1-10 at 90% accuracy, Days of the week - 03/01 03/21: Patient recites automatic sequences with the following accuracy: Counting 1-10: 08/04 (error: ten-hundred) Days of the week: 01/01 (perseveration on hundred e.g., nine one hundred). Following break and spontaneous production of Saturday: 05/31 03/22: Session 1- Days of the week: T1- 01/29 provided moderate visual and verbal cues; T2- 03/01provided moderate visualand verbal cues 03/23: Session 1- Patient recites automatic speech tasks with the clinician. See results below: 1-10: 100% accuracy Days of the Week: T1- [place],duster, der, nunder, huster, , Saturday (using max visual cues) T2- Saturday, , , , , Saturday, Saturday (using max visual cues) 03/24: Session 2- Patient recites automatic speech tasks with the clinician. See results below: Counting 1-: 90% accuracy Days of the Week: , Saturday, Saturday, , Saturday, Saturday, Saturday Goal #2: Patient will name objects (real or pictured) to confrontation with >50% accuracy provided maximum verbal cues. Probe: naming an object from a fo2 multiple choice- 20% accuracy (patient struggling with repeatingthe words, producing neologisms or paraphasias) 03/15: 2nd session: Repeating name of pictured object (in spontaneous context) in the context of a written expression task: ~50% accuracy (with partial credit for spelling a word out loud accurately!) 1. 6 2. 6 3. 15 4. 15 5. 8* * spelled the word out loud correctly! 03/16: Session 1- Patient names real pictured objects to confrontation provided maximum cues (phonemic, semantic, cloze, repetition, etc.) with 0% accuracy. Target Response 1. Earth derb (max cues) 2. door dargis (max cues) 3. pants stargus (max cues) 4. boxing dargus (max cues) 5. taco targus (max cues) 03/19: Session 1: Confrontation naming of everyday color photographs 0/10 however it was noted that patient began using gestures independently with photos in 6/10 pictures (gestured hat, phone, wells, wrist watch, scissors and egg) Patient stated, I never do that before, it's fun! New Goal written. 03/21: Patient named objects in 0/5 trials due to perseveration on Stomach/Sunnik. Patient repeated names as detailed below. 03/22: Session 2- Patient names real pictured objects to confrontation provided maximum cues (phonemic, semantic, cloze, repetition, etc.) with 20% accuracy. Target Response 1. apple Basket, but its... Bicycle 2. hat askit 3. tennis Not bene, sineck 4. pillow wash 5. hand That's a nasgul. 6. horse mushick 7. helmet bicycle 8. paper hanger Oh that's um... mailed 9. stomach stomach 10. squirrel Squirrel (phonemic cue provided) 03/23: Session 1- Patient names real pictured objects to confrontation provided maximum cues (phonemic, semantic, cloze, repetition, etc.) with 0% accuracy. Target Response 1. sun (imitation: sat, ) 2. road caniger (imitation: road) 3. skiing NR (imitation: ) 4. tie Skunday, skumer (imitation: Saturday) 03/24: Session 2- Patient names real pictured objects to confrontation provided maximum cues (phonemic, semantic, cloze, repetition, etc.) with 0% accuracy. Target Response 1. arm Stomach 2. dress Stomach or mistic 3. island mergic 03/25: Session 1- Patient names real pictured objects to confrontation provided maximum cues (phonemic, semantic, cloze, repetition, etc.) with 17% accuracy. Errors today were more closely related to target words. Target Response Error Type 1. zipper stomach perseveration 2. dog paws Semantic paraphasia 3. bed Dog, desk Perseveration, semantic paraphasia 4. brain suck Semantic paraphasia 5. fish stomach perseveration 6. sandwich sandwich - Goal #3: Patient will repeat 1-2 syllable functional words, consistently across 3 trials, with >90% accuracy provided a visual model by the clinician. 03/25: Session 1- Patient repeats 1-2 syllable functional words with 50% accuracy across 3 trials foreach word, provided a visual model by the clinician. Target Response Total 1. gloves Snug, snug, snug 0/3 2. chicken Shicken, shicken, shicken 0/3 3. salt Salt, salt, salt 3/3 4. Bat Back, bat, bat 2/3 5. window Window, window, window 3/3 6. customer quality specialist Plumic, plumbic, plumbic 0/3 7. watch Watch, watch, watch 3/3 8. dolphin Dolphin, dolphin, dolphin 3/3 9. pizza Ditta, ditta, pittop 0/3 10. helmet Helmet, elmet, elmit 11/27 Reading Comprehension: Goal #1: The patient will identify a written phrase from a field of 2, given an auditory model with80% accuracy. 03/25: Session 1- Patient identifies a written phrase from a field of 2 given an auditory model and picture with 100% accuracy provided slow presentation and repetitions. Goal #2: The patient will identify the written word to match a given object or picture with 80% accuracy in a field of 3 (presented in a vertical orientation). 03/12: Session 1- Patient identifies the written word from a field of 3, given a picture of an object, with 53% accuracy. 03/14: Session 2- Attempted but could not complete d/t patient complaining of not being able to see stimuli d/t them being blurry. 03/15: 1st session: Patient was given a pictured object/item and then presented with three words, written by clinician in a vertical presentation and held upright for her viewing. She then used the picture to 'underline' the matching written word. She independently manipulated the picture to aid hervision. Word to picture match (f of 2 words), presented vertically: 100% accuracy 1. 13 6. 13 2. 15 7. / 3. 13 8. / 4. 15 9. / 5. 13 10. / Word to picture match (f of 3 words), presented vertically: 83% accuracy 1. 6 6. 15 2. 13 7. / 3. 15 8. / 4. 13 9. / 5. 15 10. / 03/16: Session 2- Probe: Patient identifies written 2-3 word phrases from a field of 2, given a picture of an object with 50% accuracy. 03/18: Session 1: Word to picture (field of 3 words), presented vertically: 07/04 at 80% 03/25: Session 2- Word to picture match (f of 3 words), presented vertically: 100% accuracy. 1. 15- Complete: accurate, responsive, complete, prompt, efficient 2. 15- Complete: accurate, responsive, complete, prompt, efficient 3. 15- Complete: accurate, responsive, complete, prompt, efficient 4. 15- Complete: accurate, responsive, complete, prompt, efficient 5. 15- Complete: accurate, responsive, complete, prompt, efficient 6. 15- Complete: accurate, responsive, complete, prompt, efficient 7. 13- Complete-delayed: Accurate, responsive, complete or complex, delayed 8. 15- Complete: accurate, responsive, complete, prompt, efficient 9. 15- Complete: accurate, responsive, complete, prompt, efficient 10. 15- Complete: accurate, responsive, complete, prompt, efficient Written Expression: Goal #1: Patient will write the name of the object/item, provided a picture and it's label verbally, with 80% accuracy provided moderate verbal/visual cues. 5/: Session 2- Patient writes the name of the object/item, provided a picture and it's label verbally, with 30% accuracy provided moderate verbal/visual cues. Target Response 1. bed raul 2. sun hathaway 3. coffee j 4. tree tree 5. shoe shy, shoe 6. hand Hard, hand 7. sheep C, l, (sheep- provided first two letters) 8. turtle Turple 9. computer Cou, cup, cu 10. unicorn Uniy, uni Augmentative Communication Goal #1: The patient will generate gestures representing basic needs with 80% accuracy in response to auditory or visual instruction. 03/19 Session 1: Patient generated gestures independently with photos in 6/10 pictures with 60% accuracy (hat, phone, wells, wrist watch, scissors and egg). 03/22: Session 2- Patient generated gestured independently with photo description task to augment communication effectively with ~75% effectiveness. 03/23: Session 2- Patient functionally communicates her basic wants and needs using gestures and provided maximum visual, verbal, gestural and contextual cues from the speech-language pathologist to Dr. Maria, her hematology doctor, via telemedicine consult. With this level of support, she was able to convey that she has been having increasing headaches for the past [address] Maria was able to communicate a plan to her regarding this involving further head imaging and medication dose management. Patient required written context words and simplified explanation with gestures of the overallencounter from the ANESTHESIOLOGY PHYSICIAN ASSISTANT. Going forward, family/caregiver education regarding communication facilitation and SCA for Ynes would be appropriate via Zoom/Facetime or in person if possible. 03/24: Session 2- Patient generated gestured independently within structured conversation to augmentcommunication effectively with ~75% effectiveness with this familiar communication partner. PATIENT/FAMILY EDUCATION: Patient/Family Education: Patient/family education was provided today including: rehab goals and questions were addressed. Topic: Patient/Family education and training was completed today including: the role of Speech-Language Pathology Aphasia questions were addressed Learner: patient Method of Education: Verbal and Written Barriers to Learning/Education: fatigue, headache pain, and presence of language impairment Patient: needs further instruction and education Family: No family present. Patient/Family Goals: Patient states I want to get better. Team Communication: Conversation with patient's nurse re: communication access (using written language) ?? Assessment /CLINICAL IMPRESSIONS: Ynes White is a female 50 y.o. 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 Today, Ynes continues to demonstrate significant improvements in auditory comprehension at the phrase/simple sentence level provided a fo4 picture choices, repetition of single words x3, confrontational naming, and reading comprehension at the phrase level. Errors with expressive language today are closer to targets and she is demonstrting improving awareness of errors within expressive language at the single word level. Ynes is augmenting her communication with gestures, facial expressions, and intonation at this time, and this is judged to be effective ~75% of the time with a familiar communication partner. She continues to benefit from an Supported Communication for Adults with Aphasia (SCA) approach, provided gestures, drawings,and single written context words to support her auditory comprehension. Due to her high needs for supported language, Ynes's familiar conversational partners (significant other Ever and sister Stacey Messina) would benefit from training in implementation of SCA and the plan is to attempt to arrange patient/family training on in-person on Saturday. Ynes remains appropriate for 30 min BID sessions for aphasia intervention based on her level of fatigue and headache pain. Ynes White currently presents with severe expressive and receptive aphasia, most consistent with Wernicke's type but with some deviation from typical Wernicke's type presentation. Patient appears to be able to follow some basic 1-step commands effectively provided context, models, slow auditory presentation of information, and tactile cues as needed. Repetition, object naming, word fluency,sentence completion, and responsive speech are all impaired. Ynes demonstrates a favorable response to use of gestures to assist with her auditory comprehension. Expressive language is characterized as fluent but mostly consists of word salad with many instances of jargon, neologisms, and paraphasias with occasional moments of intelligible discourse scattered throughout. Ynes's discourse could also be described as tangential and perseverative. She attempts to utilize gestures to augmenther expressive language, but is not always successful. She is also demonstrating breakdowns in reading comprehension at the short sentence level and significant deficits in written expression at the word level, compounded by impaired auditory comprehension preventing writing to dictation and impaired naming preventing written naming. These deficits impact the patient's ability to functionally comm unicate her wants, needs, and ideas and hold conversation. She presents with severe impairments in reading comprehension, however, she demonstrates some success with reading comprehension at the wordlevel, which appears to be a relative strength compared to her auditory comprehension. She exhibits significant breakdown in reading comprehension at the short sentence level. Ynes also demonstrates significant deficits in written expression at the single word level however this appears to be improving and her awareness of these errors appears better than her awareness of errors in verbal expression, although her awareness of errors within verbal expression is also improving steadily at the single word and short phrase level. She also demonstrates relative strength in copying words and sentences, as well as writing numbers. It has been determined that the patient demonstrates deficits that impact functioning in daily activities and hinder participation in life situations.??Patient currently requires assistance from others to communicate basic wants and needs and direct her medical care. Pt will continue to benefit from her needs being anticipated and simplified information presented to her. Information should be repeated and said in different ways, and augmented with pictures and gestures. The patient is demonstrating strengths in motivation and some intact basic expressive language skills which should be utilized during the patient's plan of care to maximize gains. Contextual factors that may impact the patient's ability to progress toward rehab goals include: severity of language impairment, need for physical assistance, tolerance level for therapy, pain, and depression/anxiety d/t to social isolation secondary to hospital's COVID19 no visitor policy. Based on patient's tolerance level, it is recommended that patient participate in 30 minute BID sessions initially and build toward 60 minute sessions as tolerated. Given patient's age, independence prior to admission, and social/occupational demands, she would benefit from intensive ANESTHESIOLOGY PHYSICIAN ASSISTANT intervention. Based on the patient's rehab potential, motivation, prior level of function, and the contextual factors, the patient's prognosis is considered good. It is anticip ated that the patient will make functional gains in expressive and receptive language skills with intensive skilled 1:1 speech language pathology services in the inpatient rehabilitation setting. It is anticipated that following her discharge from inpatient rehabilitation that Ynes will require a communication partner trained in [facility] and she will require ongoing intensive skilled speech-language pathology services in her next setting. Functional Communication Measures ([place] [employer], 2002). The Functional Communication Measures (FCM???s) are a series of 7 point rating scales, ranging fromleast functional (Level 1) to most functional (Level 7). They have been developed by [employer] to describe different aspects of patient???s functional communication and swallowing abilities over the course of ANESTHESIOLOGY PHYSICIAN ASSISTANT intervention. ?? Spoken Language Comprehension Level 2: With consistent, maximal cues, the individual is able to follow simple directions, respond to simple yes/no questions in context, and respond to simple words orphrases related to personal needs. Spoken Language Expression Level 3: The communication partner must assume responsibility for structuring the communication exchange, and with consistent and moderate cueing, the individual can produce words and phrases that are appropriate and meaningful in context. Reading Level 3: The individual reads single letters and common words, and with consistent moderatecueing, can read some words that are less familiar, longer, and more complex. Writing Level 2: The individual writes single letters and common words with consistent maximal cueing. ?? GOALS: Snf Goals: Projected Functional Communication Measures at discharge: Spoken Language Comprehension Level 4: Individual consistently responds accurately to simple yes/noquestions and occasionally follows simple directions without cues. Moderate contextual support is usually needed to understand complex sentences/messages. The individual is able to understand limited conversations about routine daily activities with familiar communication partners. Spoken Language Expression Level 4: The individual is successfully able to initiate communication using spoken language in simple, structured conversations in routine daily activities with familiar communication partners. The individual usually requires moderate cueing, but is able to demonstrate use of simple sentences (i.e., semantics, syntax, and morphology) and rarely uses complex sentences/messages. Reading Level 4: The individual reads words and phrases related to routine daily activities, and words that are less familiar, longer, and more complex. The individual usually requires moderate cueing to read sentences of approximately 5-7 words. Writing Level 3: The individual writes single letters and common words, and with consistent moderate cueing, can write some words that are less familiar, longer, and more complex. Short Term Goals: Auditory Comprehension: Goal #1: Patient will identify pictures that match auditory presentation of simple sentences in a visual field of 4-6 with >80% accuracy provided minimal cues from the clinician. Goal #2: Patient will answer simple yes/no questions with >80% accuracy provided fewer than 2 repetitions of the question. Goal #3: Patient will follow simple 1-step commands related to functional environment with >70% accuracy provided moderate verbal/tactile/visual cues in order to increase functional integration into environment. ?? Expressive Language: Goal #1: Patient will recite automatic speech tasks given moderate cues with >70% accuracy. Goal #2: Patient will name objects (real or pictured) to confrontation with >50% accuracy provided maximum verbal cues. Goal #3: Patient will repeat 1-2 syllable functional words, consistently across 3 trials, with >90% accuracy provided a visual model by the clinician. ?? Reading Comprehension: Goal #1: The patient will identify a written phrase from a field of 2, given an auditory model with80% accuracy Goal #2: The patient will identify the written word to match a given object or picture with 80% accuracy in a field of 3 (presented in a vertical orientation). Written Expression: Goal #1: Patient will write the name of the object/item, provided a picture and it's label verbally, with 80% accuracy provided moderate verbal/visual cues. Augmentative Communication Goal #1: The patient will generate gestures representing basic needs with 80% accuracy in response to auditory or visual instruction. ?? Plan RECOMMENDATIONS: Patient will continue to benefit for further ANESTHESIOLOGY PHYSICIAN ASSISTANT intervention in this setting to address aphasia management and intervention needs. ?? Recommend inpatient rehabilitation ANESTHESIOLOGY PHYSICIAN ASSISTANT services: Patient will be seen for a minimum of 5x/week @ 30minutes BID due to current tolerance level. ?? Communication Access and Shared Decision Making Recommendations Please support communication access and shared decision making ability by doing the following: ?? Support Comprehension: ?? Have a pen and paper ready when communicating. ?? Please present information slowly and simplify. Augment with drawings, diagrams, gestures and pointing. ?? Ask one question at a time. ?? Have only one person speak at a time. ?? Environmental modifications:? Simplify the environment: ?? Carryover/Discharge??and Healthcare Decision making considerations ?? Will need family support for the successful carryover of discharge recommendations. ?? Currently comprehension of non-contextual information is a barrier Oliva Martinez, CCC-ANESTHESIOLOGY PHYSICIAN ASSISTANT, MS, CCC-ANESTHESIOLOGY PHYSICIAN ASSISTANT 03/25/2020 16:01 * Aida Goodman DPT - 03/24/2020 1610 EDT [facility] Therapy [facility] Physical Therapy Encounter Note Date of Service: 03/24/2020 , Activity: Level of risk of Harm B, Activity as tolerated, , Additional Precautions Information: LBone flap precautions (helmet OOB), R Rooke Boot in bed, PEG tube SUBJECTIVE: Pt indicated she feels good and is ready to work Pain: not rated OBJECTIVE: Start time: 1030 Total Therapy Minutes: 30 minute(s) Interventions completed today: Vital Signs: Vitals: 03/23/20 1033 BP: 126/78 BP Cuff Location: Right arm BP Patient Position: Sitting Pulse: 86 ] Gait Training: ?? Ambulation for endurance training without device. 350' with mostly close supervision and two instances of minimal contact assist due to loss of stability when changing directions and unable to regain stability with balance strategies. x2 reps with seated rests between, cuing for arm swing and scanning. ?? Gait deviations: slow speed, bilateral increased external rotation, decreased arm swing ?? Stairs: down/up 12 stairs with 1 hand rail and minimal contact assist, cuing to do one step at atime. X 2 reps with seated rest between Therapeutic Exercise: ?? Sit <-> stand 5 x 2 ?? Side stepping with mini squats 15 x 2 Patient semi-fowlers in bed with bed alarm on, setting 2. Call miranda and tray table in reach. 2nd Session Time: Start time: 1430 Total Therapy Minutes: 30 minutes Discussed discharge planning with patient and her brother (who was on the phone). Pt's brother educated on the recommendation for patient to have 24 hour supervision and assist with all out of bed mobility upon discharge. The recommendation for pt to have a walker to increase safety and independence with functional mobility, the role and goals of physical therapy following discharge from [facility], and recovery process. Pt and her brother verbalize understanding however will benefit from additional review and face to face family training for assist with functional mobility. Patient/Family Education: Topic: See above Learner: patient Method: verbal Barriers to Learning: none noted Outcome: verbalized understanding ASSESSMENT: Ynes tolerated therapy well today. She experienced two losses of balance during gaittoday when changing directions and will benefit from the use of a rolling walk to increase her safety and independence. Pt and her brother were extensively educated on discharge planning and the role/goals of physical therapy. Pt's brother will benefit from face to face family training to assist ptwith mobility in preparation for discharge. PLAN: ?? Walking endurance ?? Functional strength training: stairs ?? Progressive leg strengthening ?? Balance ?? Outdoor ambulation ?? Family training: use of walker, gait indoors/outdoors, stairs Contact information: Pager: [phone] Aida Goodman DPT, CLT 03/24/2020 16:10 * Jaden Rutherford MD - 03/24/2020 7430 EDT Physiatry Progress Note Admit Date: 03/02/2020 Hospital Day: LOS: 22 days Date of Service: 03/24/2020 Chief Complaint: Left temporoparietal hemorrhage status post decompressive craniectomy, setting of central venous thrombosis 02/14/2020 Subjective: Having a better day today, no headache this morning. No shortness of breath or lightheadedness. No GI distress today. Current Facility-Administered Medications: acetaminophen (TYLENOL) tablet 650 mg oral Q4H PRN aspirin chewable tablet 81 mg oral DAILY bisacodyL (DULCOLAX) suppository 10 mg rectal Q48H PRN calcium carbonate (TUMS) 200 mg calcium (500 mg) per chewable tablet tablet,chewable 1 Tab oral QIDPRN docusate sodium (COLACE) capsule 100 mg oral BID PRN enoxaparin (LOVENOX) injection 60 mg subcutaneous Q12H guaiFENesin tablet 200 mg oral Q6H PRN HYDROmorphone (DILAUDID) tablet 2 mg oral Q4H PRN lactulose (CHRONULAC) 20 gram/30 mL solution 30 mL oral BID PRN melatonin tablet 3 mg oral QHS multivitamin (FLINTSTONES) chewable tablet 1 Tab oral DAILY ondansetron (ZOFRAN-ODT) disintegrating tablet 4 mg oral Q8H PRN pantoprazole (PROTONIX) tablet 40 mg oral DAILY papain-alpha amylase-cellulase (CLOG ZAPPER) 2-5 mL feeding tube PRN polyethylene glycol 3350 (MIRALAX) packet 17 g oral Daily PRN QUEtiapine (SEROQUEL) tablet 6.25 mg oral QHS senna (SENOKOT) tablet 1 Tab oral BID PRN Objective/Physical Exam: VS: No data found. Pain: Patient Vitals for the past 8 hrs: Numeric Pain Level (Scale 1-10) Asleep 03/24/20 1110 6 -- 03/24/20 1024 8 -- 03/24/20 1023 8 -- 03/24/20 0800 6 -- 03/24/20 0710 0 Reassessed, sleeping comfortably, RR WNL. Weight: Weight : 83.5 kg (184 lb) Glucose Readings (last 8 readings): No results for input(s): GLUCOSEFINGE in the last 72 hours. I&O: Intake/Output Summary (Last 24 hours) at 03/24/2020 1441 Last data filed at 03/24/2020 0855 Gross per 24 hour Intake 450 ml Output -- Net 450 ml Exam: Gen: Alert, pleasant, no distress HEENT: Left decompressive hemicraniectomy site slightly sunken. Surgical incision with small areas of eschar. Evidence of a right homonymous hemianopsia. No facial droop. Neck supple. Mucosal membranes are moist Skin: no rashes, continued eschar over the craniectomy incision. Cardiac: Cor RRR Pulmonary: clear to auscultation bilaterally Abdomen: normal bowel sounds, soft, nontender to palpation, PEG tube has a small split in it just above the bumper, with no further leaking after placing an adhesive over the leak (tape). Musculoskeletal: no joint tenderness, deformity or swelling, no muscular tenderness noted, full range of motion without pain Neuro: Expressive greater than receptive aphasia affect: Alert Motor: No focal motor weakness. There is some relative right lower extremity weakness compared to the other extremities but does not appear clinically significant. Tone normal Reflexes: trace Sensation: No extinction no clear focal sensory loss Cerebellar: no tremors Labs: I have personally reviewed CBC: Lab Results Component Value Date WBC 5.16 03/21/2020 RBC 3.71 (L) 03/21/2020 HGB 11.6 03/21/2020 HCT 34.4 (L) 03/21/2020 MCV 93 03/21/2020 MCH 31.3 03/21/2020 MCHC 33.7 03/21/2020 PLT 220 03/21/2020 NEUTROABS 2.93 03/18/2020 BMP: Lab Results Component Value Date NA 134 (L) 03/21/2020 K 5.2 (H) 03/21/2020 CL 100 03/21/2020 CO2 26 03/21/2020 BUN 34 (H) 03/18/2020 CREATININE 0.65 03/21/2020 CALCIUM 7.5 (L) 03/18/2020 MG 1.7 03/02/2020 PHOS 4.6 (H) 03/07/2020 LABALBU 2.6 (L) 03/18/2020 Assessment/Problems: (update problem list daily as appropriate) Patient Active Problem List Diagnosis Date Noted ??? *(H)Left-sided nontraumatic intracerebral hemorrhage ([facility]) 03/02/2020 Priority: Medium Status post decompressive hemicraniectomy ??? Brain herniation ([facility]) 02/17/2020 Priority: Medium ??? Cerebral edema ([facility]) 02/17/2020 Priority: Medium ??? 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 (H)Cerebral venous thrombosis 02/14/2020 Priority: Medium ??? Encounter for insertion or removal of intrauterine contraceptive device 02/12/2020 Priority: Medium ??? Nicotine dependence, unspecified, uncomplicated 02/12/2020 Priority: Medium ??? Perimenopausal 02/12/2020 Priority: Medium ??? Post concussion syndrome 02/12/2020 Priority: Medium ??? Tobacco abuse 12/02/2012 Priority: Medium ??? Chronic low back pain 10/13/2012 Priority: Medium ??? Back pain 09/25/2012 Priority: Medium ??? Primary hypercoagulable state ([facility]) 03/23/2020 Class: Permanent Thrombosis Events A. 11/17/2019: [...] issue. Treatment and prevention A. 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 Left frontal intraparenchymal hemorrhage: Status post decompressive craniectomy. Patient with residual mild right-sided weakness, significant expressive and receptive aphasia, dysphagia, right homonymous hemianopsia. Full PT, OT, ANESTHESIOLOGY PHYSICIAN ASSISTANT to address mobility, self care communication and swallowing fun ction. 24 hour rehab nursing for self care deficits. Continued intermittent headache, which appearsto improve with some distraction and has improved each time spontaneously. Is reassuring with a recent CT scan but no acute changes are going on. Helmet on when out of bed. Diet advanced to regular consistency. Team meeting is attended today and case discussed with all team members. I spent 35 minutes of floor time, greater than 50% of that time was spent face to face with the patient in counseling and coordination of care and counseling including review of therapy goals and barriers to discharge, recovery, functional progress. 2. 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 Evidence of left IJ, sigmoid and transverse sinuses as well. THP follow-up appreciated and she will remain on heparin, continue to monitor levels. As discussed with Dr. Maria, it is reasonable to get a MR venogram to see if there is a secondary etiology of her headache including progressive thrombosis, or hemorrhage. 3. Right upper lobe pulmonary embolism, left upper extremity DVT: Now on therapeutic dose Lovenox. ?? 4. History of anxiety/depression: Monitor clinically. Doing well with the Seroquel taper. Consider medical psychology consultation as language deficits allow. She has listed allergies to citalopram and duloxetine. 5. Nutrition: PEG tube placed 02/18/2020. Goal is to keep the tube in place for at least 6 weeks after placement, as reviewed with Dr. Branch from acute care surgery. Diet is currently regular consistency Jaden Rutherford MD 03/24/2020 14:41 * Oliva Martinez MS CCC-ANESTHESIOLOGY PHYSICIAN ASSISTANT - 03/24/2020 0827 EDT Speech-Language Pathology Daily and Current Progress Note ANESTHESIOLOGY PHYSICIAN ASSISTANT Diagnosis: Aphasia Medical Diagnosis: Cerebral venous thrombosis and resultant intraparenchymal hemorrhage in the leftfrontotemporal area Date of Onset: 02/14/20 Date of Referral: 03/02/20 Subjective/Objective SUBJECTIVE: Session 1: Having some emotious (emotions). Want me to give is a gwas (guess)? I love that stuff! (re: salsa) I'm starting to understand. Session 2: Can I ask you one question? OBJECTIVE: Date of Service: 03/24/2020 Session One: Start Time: 0930 Total Therapy minutes: 30 minute(s) c/c tx Second Session: Start Time: 1330 Total Therapy minutes: 30 minute(s) c/c tx 24-Hour Events: Patient underwent MR HEAD VENOGRAM W/WO CONTRAST yesterday. Results as follows: 'Interval decrease in the clot burden within left transverse and sigmoid sinus. The left vein of Kristen continues to be diminutive at its most peripheral aspects with no new thrombus within this cortical vein identified. ?? Postsurgical changes related to left-sided craniectomy and sequela of parenchymal injury/hemorrhagein the left temporal lobe have an expected appearance.' Current Treatment Objectives: Auditory Comprehension: Goal #1: Patient will identify objects in a visual field of 4-6 with >80% accuracy provided minimal cues from the clinician and repetitions for fewer than 50% of trials. 03/11: Session 2- Patient identifies objects in a visual field of 4 with 100% accuracy provided written word and auditory presentation of the word. Patient identifies objects in a visual field of 6 with 80% accuracy provided written word and auditory presentation of the word. Patient requires significant repetition of each item provided field of 6 and encouragement as she was hesitant to answer frequently stating that it made her nervous to have more than 4 items to choose from. 03/12: Session 2- Patient identifies objects in a visual field of 4 with 80% accuracy provided written word and auditory presentation of the word. 03/14: Session 1- Patient identifies objects in a visual field of 4 with 70% accuracy provided written word and auditory presentation of the word. 03/15: 2nd session: Object ID (f of 4) given label and function: 88% accuracy 1. 15 6. 15 2. 15 7. 8 3. 15 8. 13 4. 15 9. / 5. 15 10. / Object ID (f of 4) given label ONLY: 50% accuracy 1. 13 6. 6 2. 15 7. 6 3. 6 8. 6 4. 13 9. 15 5. 13 10. 6 03/16: Session 1- Patient identifies objects in a visual field of 4 with 80% accuracy provided written word and auditory presentation of the word. Patient requires repetition of ~50% of items providedfield of 4. 03/17: Session 1- Patient identifies objects in a visual field of 6 with 80% accuracy provided written word and auditory presentation of the word. Patient requires repetition of ~25% of items providedfield of 4 03/21: Patient identifies object in a visual field of 6 with 70% accuracy given intermittent repetition. Patient consistently exhibited difficulty identifying helmet, but was able to with gestural support. 03/22: Session 2- Patient identifies objects in a visual field of 6 with 100% accuracy provided written word and auditory presentation of the word. 03/23: Session 1- Patient identifies objects in a visual field of 6 with 90% accuracy provided written word and auditory presentation of the word. 03/24: Session 1- Patient identifies objects in a visual field of 6 with 100% accuracy provided written word and auditory presentation of the word. Probe- Patient identifies pictures in a visual field of 4 with 58% accuracy provided written word and auditory presentation of a simple sentence. Patient required repetition and slow presentation of sentences. Errors were often related to foils presented that included a pronoun (he/she) or genderedsubject (The man vs the woman) or a similar subject doing a different action. Goal #2: Patient will answer simple yes/no questions with >80% accuracy provided fewer than 2 repetitions of the question. 03/23: Session 1- Patient answers simple yes/no questions with 40% accuracy provided fewer than 2 repetitions of the question. 1. 6- Error: Inaccurate attempt at the task item 0 repetitions 2. 13- Complete-delayed: Accurate, responsive, complete or complex, delayed 1 repetitions 3. 13- Complete-delayed: Accurate, responsive, complete or complex, delayed 0 repetitions 4. 15- Complete: accurate, responsive, complete, prompt, efficient 0 repetitions 5. 13- Complete-delayed: Accurate, responsive, complete or complex, delayed 0 repetitions 6. 6- Error: Inaccurate attempt at the task item 0 repetitions 7. 6- Error: Inaccurate attempt at the task item 1 repetitions 8. 6- Error: Inaccurate attempt at the task item 2 repetitions 9. 6- Error: Inaccurate attempt at the task item 0 repetitions 10. 6- Error: Inaccurate attempt at the task item 0 repetitions Goal #3: Patient will follow simple 1-step commands related to functional environment with >70% accuracy provided moderate verbal/tactile/visual cues in order to increase functional integration into environment. 03/09: Session 2- Patient follows simple 1-step commands related to environment with 0% accuracy independently. Accuracy increases to 90% accuracy following a model by the clinician with slowed auditory presentation of directions. 03/10: Session 1- Patient follows simple 1-step commands related to environment with 0% accuracy independently. Accuracy increases to 90% accuracy following a model by the clinician with slowed auditory presentation of directions. 03/12: Session 1- Patient follows simple 1-step commands related to environment with 0% accuracy independently. Accuracy increases to 62% accuracy following a model by the clinician with slowed auditory presentation of directions. 03/14: Session 2- Patient follows simple 1-step commands related to environment with 100% accuracy following a model by the clinician with slowed auditory presentation of directions. 03/15: / session: Patient followed 1 step commands in the context of therapy tasks today giveninitial demonstration. 03/16: Session 2- Patient follows simple 1-step commands related to environment with 90% accuracy following a model by the clinician with slowed auditory presentation of directions. 03/17: Session 1- Patient follows simple 1-step commands related to environment with 100% accuracy following a model by the clinician with slowed auditory presentation of directions. Patient completed1 of the commands independently without a model from the clinician today. 03/18: Session 1: Followed 2/10 simple 1 step commands independently. Patient followed ANESTHESIOLOGY PHYSICIAN ASSISTANT model with 100% accuracy. 03/19: Session 1: Followed 4/10 simple one step commands independently. Followed ANESTHESIOLOGY PHYSICIAN ASSISTANT model with 90% accuracy (blow a kiss, look out the window, big smile) 03/21: Followed 6/6 simple one-step commands given clinical model. Upon delayed repetition of the same commands, patient followed 3/6 simple one-step commands given additional repetition. 03/22: Session 1- Patient independently follows 1-step directions with 20% accuracy. Accuracy improves to 90% following a model by the clinician. 03/23: Session 1- Patient independently follows 1-step directions with 30% accuracy. Accuracy improves to 100% following a model by the clinician. 03/24: Session 1- Patient follows 1-step directions (adjective + noun) using the [employer] Advanced Comprehension ryne on the iPad with 28% accuracy provided maximum repetitions and slowed presentation. Expressive Language: Goal #1: Patient will recite automatic speech tasks given moderate cues with >70% accuracy. 03/08: Session 1- Patient recites automatic speech tasks with the clinician. See results below: 1-10: 100% accuracy following a model The Alphabet: Unable to perform in unison Months of the Years: Attempted to have patient repeat each month after the clinician: November, December, (jargon), (jargon), , June, April medication, June compation, sincation medication,seegus, French, lessonagus Musa, Liliana 03/09: Session 1- Patient recites automatic speech tasks with the clinician. See results below: 1-10: 100% accuracy following a starter cue one... The Alphabet: T1: A, me, S, d, 8, q, A, me, d, ec, q, g, h, eed, h ; T2: Patient was able to achieve 50% in unison with the clinician but eventually perseverated on w Days of the Week: Patient perseverated on w, k despite max cues, models, and attempts to perform in unison Session 2- Patient recites automatic speech tasks with the clinician. See results below: 1-10: 80% accuracy following a repetition of the instructions; 80% accuracy in trial 2 following a repetition of the instructions. The Alphabet: A, 7 you mean? following max cues and models Days of the Week: Patient perseverated on w, k despite max cues, models, and attempts to perform in unison 03/10: Session 1- Patient recites automatic speech tasks with the clinician. See results below: 1-10: 100% accuracy The Alphabet: a, q, q, jews, each, l, l, elf Days of the Week: w, q, w, q, w, q, l, q, l, q 03/12: Session 2- Patient recites automatic speech tasks with the clinician. See results below: 1-10: 90% accuracy The Alphabet: l, n, h, stomich, a, m, h, m, etch, is it etch? Days of the Week: elmen, elmen threemen, riley three hundred, h, h, eight? No, stomach 03/14: Session 2- Patient recites automatic speech tasks with the clinician. See results below: 1-10: 90% accuracy Days of the Week: feminal, lessons, lezimen... 03/16: Session 1- Patient recites automatic speech tasks with the clinician. See results below: 1-10: 0% accuracy Days of the Week: drama, bever, mener, sever... 03/17: Session 1- Patient recites automatic speech tasks with the clinician. See results below: 1-10: 100% accuracy Days of the Week: Saturday, Saturday, Wender, Thunder, Wender, Sender, Fender when repeating each day individually following a model by the clinician. 03/18: Session 1: Counting 1-10 Trial one: 04/03. Trial Two: 07/06 (Eight, Ninth, Tenth, Eleventh, Twelfth - Is that what you want? I got lost. 03/19: Session 1: Counting 1-10 at 90% accuracy, Days of the week - 03/01 03/21: Patient recites automatic sequences with the following accuracy: Counting 1-10: 9/10 (error: ten-hundred) Days of the week: 01/01 (perseveration on hundred e.g., nine one hundred). Following break and spontaneous production of Saturday: 05/31 03/22: Session 1- Days of the week: T1- 01/29 provided moderate visual and verbal cues; T2- 03/01provided moderate visualand verbal cues 03/23: Session 1- Patient recites automatic speech tasks with the clinician. See results below: -: 100% accuracy Days of the Week: T1- [place],er, , nder, huster, , Saturday (using max visual cues) T2- Saturday, , , , , Saturday, Saturday (using max visual cues) 03/24: Session 2- Patient recites automatic speech tasks with the clinician. See results below: Counting -: 90% accuracy Days of the Week: , Saturday, Saturday, , Saturday, Saturday, Saturday Goal #2: Patient will name objects (real or pictured) to confrontation with >50% accuracy provided maximum verbal cues. Probe: naming an object from a fo2 multiple choice- 20% accuracy (patient struggling with repeatingthe words, producing neologisms or paraphasias) 03/15: 2nd session: Repeating name of pictured object (in spontaneous context) in the context of a written expression task: ~50% accuracy (with partial credit for spelling a word out loud accurately!) 1. 6 2. 6 3. 15 4. 15 5. 8* * spelled the word out loud correctly! 03/16: Session 1- Patient names real pictured objects to confrontation provided maximum cues (phonemic, semantic, cloze, repetition, etc.) with 0% accuracy. Target Response 1. Earth derb (max cues) 2. door dargis (max cues) 3. pants stargus (max cues) 4. boxing dargus (max cues) 5. taco targus (max cues) 03/19: Session 1: Confrontation naming of everyday color photographs 010 however it was noted that patient began using gestures independently with photos in 05/04 pictures (gestured hat, phone, wells, wrist watch, scissors and egg) Patient stated, I never do that before, it's fun! New Goal written. 03/21: Patient named objects in 0/5 trials due to perseveration on Stomach/Sunnik. Patient repeated names as detailed below. 03/22: Session 2- Patient names real pictured objects to confrontation provided maximum cues (phonemic, semantic, cloze, repetition, etc.) with 20% accuracy. Target Response 1. apple Basket, but its... Bicycle 2. hat askit 3. tennis Not yasemin, sineck 4. pillow wash 5. hand That's a nasgul. 6. horse mushick 7. helmet bicycle 8. paper hanger Oh that's um... mailed 9. stomach stomach 10. squirrel Squirrel (phonemic cue provided) 03/23: Session 1- Patient names real pictured objects to confrontation provided maximum cues (phonemic, semantic, cloze, repetition, etc.) with 0% accuracy. Target Response 1. sun Mike (imitation: sat, ) 2. road caniger (imitation: road) 3. skiing NR (imitation: ) 4. tie Skunday, skumer (imitation: Saturday) 03/24: Session 2- Patient names real pictured objects to confrontation provided maximum cues (phonemic, semantic, cloze, repetition, etc.) with 0% accuracy. Target Response 1. arm Stomach 2. dress Stomach or mistic 3. island mergic Goal #3: Patient will repeat 1-2 syllable functional words with >70% accuracy provided a visual model by the clinician. 03/09: Session 2- Patient repeats 1-2 syllable functional words with 10% accuracy provided a visual model by the clinician. For 60% of trials patient produced neologisms and for 30% of trials patient produced phonemic paraphasias. See results below: 2. 6- Error: Inaccurate attempt at the task item; neologism 3. 6- Error: Inaccurate attempt at the task item; neologism 4. 15- Complete: accurate, responsive, complete, prompt, efficient 5. 14- Distorted: accurate, responsive, complete or complex, prompt, distorted; phonemic paraphasia 6. 6- Error: Inaccurate attempt at the task item; neologism 7. 6- Error: Inaccurate attempt at the task item; neologism 8. 14- Distorted: accurate, responsive, complete or complex, prompt, distorted; phonemic paraphasia 9. 14- Distorted: accurate, responsive, complete or complex, prompt, distorted; phonemic paraphasia 10. 6- Error: Inaccurate attempt at the task item; neologism 03/10: Session 1- Patient repeats 1-2 syllable functional words with 30% accuracy provided a visual model by the clinician. For 70% of trials patient produced neologisms. See results below: 1. 8- Cued: Accurate, after cue is given; neologism for first few trials; required tactile and visual cues 2. 15- Complete: accurate, responsive, complete, prompt, efficient 3. 6- Error: Inaccurate attempt at the task item; neologism 4. 6- Error: Inaccurate attempt at the task item; neologism 5. 15- Complete: accurate, responsive, complete, prompt, efficient 6. 15- Complete: accurate, responsive, complete, prompt, efficient 7. 6- Error: Inaccurate attempt at the task item; neologism 8. 6- Error: Inaccurate attempt at the task item; neologism 9. 6- Error: Inaccurate attempt at the task item; neologism 10. 6- Error: Inaccurate attempt at the task item; neologism Session 2- Patient repeats 1-2 syllable functional words with 30% accuracy provided a visual model by the clinician. For 70% of trials patient produced neologisms. 03/11: Session 1- Patient repeats 1-2 syllable functional words with 0% accuracy provided a visual model by the clinician. See results below: Target Response 1. socks stomach 2. chair Stomach mesausen 3. finger megas megasarus 4. baby Lady mesasus 5. helmet helmamarier 6. Earth siroath 7. mandaen churchtons 8. pepper lymins 9. shorts short hundreds 10. sink Saint desaingin; sank; sank 03/12: Session 1- Patient repeats 1-2 syllable functional words with 50% accuracy provided a visual model by the clinician. See results below: Target Response Error Type 1. teeth clun neologism 2. golf nogolsh neologism 3. crown clanin neologism 4. rice rice - 5. money money - 6. horse horse - 7. doctor Stomach menesis Perseveration + neologism 8. legs Leg? that's it? leg - 9. wallet walwalleck Phonemic paraphasia 10. pizza pizza. I know that. - 03/14: Session 1- Patient repeats 1-2 syllable functional words with 30% accuracy provided a visual model by the clinician. Errors were typically phonemic paraphasias with the occasional neologism. See results below: Target Response Error Type 1. onion umion Phonemic paraphasia 2. chair air Phonemic paraphasia 3. zipper zipper - 4. chest shate neologism 5. boxing dockwis neologism 6. soldier soulmir Phonemic paraphasia 7. saw sawmich Neologism + perseveration 8. kitchen kitchen - 9. corn corn - 10. vacuum vactum Phonemic paraphasia Session 2- Patient repeats 1-2 syllable functional words with 10% accuracy provided a visual model by the clinician. Errors were typically phonemic paraphasias with the occasional neologism. See results below: Target Response Error Type 1. hat s- um, hat - 2. salad holad Phonemic paraphasia 3. chair Stomach attic Neologism + perseveration 4. bird Stomach umanick Neologism + perseveration 5. money kathya attic Phonemic paraphasia + neologism 6. hand hammock Phonemic paraphasia 7. rice dammish neologism 8. pool amicus neologism 9. glasses dimanick neologism 10. watch gamican neologism level Probe: Repeating functional phrases Target Response 1. Hi. Hi. 2. How are you? How are yule? 3. My name is Ynes. My name spill it. 4. I need help. I need united something. 5. I'm hungry. Nide medical under. 03/15: 1st session: Repeating of single words in the context of reading comprehension task today: 01/06, 17% accuracy, patient demonstrated poor awareness of her errors. Cloze cues were successful at eliciting target word on two instances, however this is not consistently successful 03/16: Session 1- Patient repeats 1-2 syllable functional words with 50% accuracy provided a visual model by the clinician. Errors were typically phonemic paraphasias. See results below: Target Response Error Type 1. bee bee - 2. doctor doctor - 3. beach beach - 4. level lever phonemic paraphasia 5. hand hand - 6. lamp ganter neologism 7. glove glug phonemic paraphasia 8. helmet helment phonemic paraphasia 9. coffee cofter phonemic paraphasia 10. baby baby - Probe: Repeating functional phrases Target Response 1. Hi. My. 2. How are you? Why are you? 3. My name is Ynes. My eater... (jargon) 4. I need help. I need kayla. 5. I'm hungry. I'm mentor. 6. I'm thirsty. My ever. 7. I need to use the toilet. (jargon) Session 2- Patient repeats 1-2 syllable functional words with 40% accuracy provided a visual model by the clinician. Errors were typically phonemic paraphasias and occasionally neologisms. See results below: Target Response Error Type 1. whale carlosston neologism 2. house hout Phonemic paraphasia 3. bed den Phonemic paraphasia 4. dress gama Phonemic paraphasia 5. onion onion - 6. money many Phonemic paraphasia 7. road road - 8. football whipnar neologism 9. shoulder shoulder - 10. nurse nurse - 03/17: Session 1- Patient repeats 1-2 syllable functional words with 80% accuracy provided a visual model by the clinician, with credit provided for items that were accurate following multiple trials.Errors were typically phonemic paraphasias. See results below: Target Response Error Type 1. ball ball - 2. sheep Sheet, sheet, sheep Phonemic paraphasia x2 3. stomach stomach - 4. bus bent, but, bus Phonemic paraphasia x2 5. french professor french professor - 6. towels dowel, towels Phonemic paraphasia x1 7. peas teas, teas, tears Phonemic paraphasia x3 8. zipper Zippernight, ,zipper, zipper Phonemic paraphasia x1 9. soccer soccer - 10. crab Cow, crite, choirs Phonemic paraphasia x3 Probe: Repeating functional phrases Target Response 1. Hi. Hi. 2. How are you? T1: Hi owe tour? T2: Hi owe tart? 3. My name is Ynes. T1: My nert T2: Nines ert. 4. I need help. T1: My niners apartments. T2: My nine apartments. 5. I'm hungry. T1: Mine a none-is. T2: Mine dunion. 6. I'm thirsty. T1: Mine abundon. 7. I need to use the toilet. T1: I need abindon melinder. 03/21: Patient repeats 1-2 syllable functional words with 75% accuracy provided a visual model by clinician. Activity discontinued due to perseveration on jargon sunnik and inability to follow further models. Results as follows: Target Response Error Type 1. glasses Glasses - 2. Phone Foam, phone, phone Phonemic paraphasia x1 4. tissue Tissue, tissue - 5. pencil Tensik, tensik Phonemic paraphasia x4 03/22: Session 1- Patient repeats 1-2 syllable functional words with 60% accuracy provided a visual model by the clinician, with credit provided for items that were accurate following multiple trials.Errors were typically phonemic paraphasias. See results below: Target Response Error Type 1. hand Stomach; hand Semantic paraphasia x1 2. fence Hent; fent Phonemic paraphasia x2 3. lizard lizard - 4. ice ice - 5. dress dress - 6. customer quality specialist customer quality specialist - 7. playground Playdown; playdumb Phonemic paraphasia x2 8. soccer socter Phonemic paraphasia 9. ear ear - 10. iron Iron; I-erd -; phonemic paraphasia Session 2- Patient repeats 1-2 syllable functional words with 50% accuracy provided a visual model by the clinician, with credit provided for items that were accurate following multiple trials. Errors were typically phonemic paraphasias. See results below: Target Response Error Type 1. kitchen kitchen - 2. candle candle - 3. pizza Veetza; pizza Phonemic paraphasia x1 4. skirt Skanicks; skins Phonemic paraphasia x2 5. hockey Hackhair; hockey Phonemic paraphasia x1 6. office cashier office cashier - 7. door Handstop; guilherme, no...; handoor, door Neologisms & paraphasias 8. salad salad - 9. floor Birch Phonemic paraphasia 10. waist waist - Probe: Repeating functional phrases Target Response 1. Hi. Hide. Hide. Hi. 2. How are you? How are your? 3. My name is Ynes. My nor, name, nor, my name is doored. 4. I need help. (jargon) 5. I'm hungry. A door 03/23: Session 1- Patient repeats 1-2 syllable functional words with 40% accuracy provided a visual model by the clinician, with credit provided for items that were accurate following multiple trials.Errors were typically phonemic paraphasias. See results below: Target Response Error Type 1. owl mike neologism 2. elbow elbow - 3. pie pie - 4. toilet bimics neologism 5. tree tree - 6. button juckon Phonemic paraphasia 7. soup seep Phonemic paraphasia 8. bench bench - 9. sweater salmage Phonemic paraphasia 10. bee Bee-elmidge Phonemic paraphasia 03/24: Session 1- Patient repeats 1-2 syllable functional words with 90% accuracy provided a visual model by the clinician, with credit provided for items that were accurate following multiple trials.Errors were typically phonemic paraphasias. See results below: Target Response Error Type 1. bench bench - 2. skiing Ski-em Phonemic paraphasia 3. tent tent - 4. noyola noyola - 5. salsa salsa - 6. office cashier office cashier - 7. teeth teeth - 8. wilton wilton - 9. pants pants - 10. vacuum vacuums - Probe: Repeating functional phrases Target Response 1. Hi. Hi.. 2. How are you? T1: Hi are there? T2: Hi are henderson? 3. My name is Ynes. My L ate air light. 4. I need help. I neald are light. 5. I'm hungry. I standard machine stitcher. Reading Comprehension: Goal #1: The patient will identify the written word in a field of 2, given an auditory model with 80% accuracy. 03/11: Session 2- Patient identifies written words in a field of 2, given an auditory model with 81%accuracy. 03/12: Session 2- Patient identifies written words in a field of 2, given an auditory model with 50%accuracy. 03/16: Session 2- Patient identifies written words in a field of 2, given an auditory model with 67%accuracy. 03/18: Session 1: Patient identified written words in a field of 2 (presented vertically) with 60% accuracy (LARK word cards). 03/22: Session 1- Patient identified written words in a field of 2 (presented vertically) with 100% accuracy. 03/24: Session 1- Patient identified written words in a field of 2 (presented horizontally) with 80%accuracy. Probe: Patient identified written words in a field of 3 (presented horizontally) with 80% accuracy provided additional time for information processing. Goal #2: The patient will identify the written word to match a given object or picture with 80% accuracy in a field of 3 (presented in a vertical orientation). 03/12: Session 1- Patient identifies the written word from a field of 3, given a picture of an object, with 53% accuracy. 03/14: Session 2- Attempted but could not complete d/t patient complaining of not being able to see stimuli d/t them being blurry. 03/15: 1st session: Patient was given a pictured object/item and then presented with three words, written by clinician in a vertical presentation and held upright for her viewing. She then used the picture to 'underline' the matching written word. She independently manipulated the picture to aid hervision. Word to picture match (f of 2 words), presented vertically: 100% accuracy 1. 13 6. 13 2. 15 7. / 3. 13 8. / 4. 15 9. / 5. 13 10. / Word to picture match (f of 3 words), presented vertically: 83% accuracy 1. 6 6. 15 2. 13 7. / 3. 15 8. / 4. 13 9. / 5. 15 10. / 03/16: Session 2- Probe: Patient identifies written 2-3 word phrases from a field of 2, given a picture of an object with 50% accuracy. 03/18: Session 1: Word to picture (field of 3 words), presented vertically: 8/10 at 80% Written Expression: Goal #1: The patient will write functional words and short phrases related to personal information (e.g., name, address, date of ) with 90% accuracy given mod verbal/visual cues. 03/09: Session 2- Patient writes functional words and short phrases related to personal information.See results below: Name: 100% accuracy Address: Patient does not provide street number, street name, or apartment number. She did write inapartment number once clinician wrote in the street number and street name. She got 100% accuracy for city and state. Phone Number: 100% accuracy Occupation: Unable to complete. 03/12: Session 1- Patient writes functional words and short phrases related to personal information.See results below: Name: 100% accuracy Address: 100% accuracy following a self-correction Phone Number: 100% accuracy Occupation: 100% accuracy following request for clarification and mod cues from the clinician 03/15: session: Patient copied her first and last name accurately and independently. Probe: Patient presented with a pictured object/item and provided it's label verbally. She was asked to write the name of the object/item. Initial perseveration on the letter of her first name, however she recognized this error and accurately self corrected to write the first 2 letters of the word 'dog' (accurate for picture). Given two written foils of the accurate spelling, she quickly and accurately identified the correct spelling (and did so with 100% accuracy subsequently). Trials were continued: 1. 12/MC 2. 12/MC 3. 8/MC 4. 15* 5. 12 given initial letter 12 = partially correct spelling which most often included initial 2 letters of the word being written accurately MC = successful identification of the spelling given multiple choice *spelled aloud accurately, otherwise spelling aloud characterized by jargon letters Augmentative Communication Goal #1: The patient will generate gestures representing basic needs with 80% accuracy in response to auditory or visual instruction. 03/19 Session 1: Patient generated gestures independently with photos in 6/10 pictures with 60% accuracy (hat, phone, wells, wrist watch, scissors and egg). 03/22: Session 2- Patient generated gestured independently with photo description task to augment communication effectively with ~75% effectiveness. 03/23: Session 2- Patient functionally communicates her basic wants and needs using gestures and provided maximum visual, verbal, gestural and contextual cues from the speech-language pathologist to Dr. Maria, her hematology doctor, via telemedicine consult. With this level of support, she was able to convey that she has been having increasing headaches for the past [address] Maria was able to communicate a plan to her regarding this involving further head imaging and medication dose management. Patient required written context words and simplified explanation with gestures of the overallencounter from the ANESTHESIOLOGY PHYSICIAN ASSISTANT. Going forward, family/caregiver education regarding communication facilitation and SCA for Ynes would be appropriate via Zoom/Facetime or in person if possible. 03/24: Session 2- Patient generated gestured independently within structured conversation to augmentcommunication effectively with ~75% effectiveness with this familiar communication partner. PATIENT/FAMILY EDUCATION: Patient/Family Education: Patient/family education was provided today including: rehab goals and questions were addressed. Topic: Patient/Family education and training was completed today including: the role of Speech-Language Pathology Aphasia questions were addressed Learner: patient Method of Education: Verbal and Written Barriers to Learning/Education: fatigue, headache pain, and presence of language impairment Patient: needs further instruction and education Family: No family present. Patient/Family Goals: Patient states I want to get better. Team Communication: Conversation with patient's OT re: use of [employer] iPad for connecting via Facetime/Zoom ?? Assessment /CLINICAL IMPRESSIONS: Ynes White is a female 50 y.o. 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 It should be noted that patient went to [facility] for head CT and abdominal/ pelvis CT secondary to severe headaches and stomach ache on 03/18. Today, Ynes continues to demonstrate significant improvements in auditory comprehension at the single wordlevel provided a fo6 choices, repetition at the single word level, and reading comprehension at thesingle word level. Goals have been upgraded to reflect progress. She continues to rely on significant gestural supports and models to follow simple directions and answer yes/no questions, however this is steadily improving. Ynes remains appropriate for 30 min BID sessions for aphasia intervention based on her level of fatigue and headache pain. Ynes is augmenting her communication with gestures, facial expressions, and intonation at this time, and this is judged to be effective ~75% of the time with a familiar communication partner. She continues to benefit from an Supported Communication for Adults with Aphasia (SCA) approach, provided gestures, drawings, and single written context words to support her auditory comprehension. Due toher high needs for supported language, Ynes's familiar conversational partners (significant other Ever and sister Stacey Messina) would benefit from training in implementation of SCA and the plan is to attempt to arrange patient/family training on in-person on Saturday. Ynes White currently presents with severe expressive and receptive aphasia, most consistent with Wernicke's type but with some deviation from typical Wernicke's type presentation. Patient appears to be able to follow some basic 1-step commands effectively provided context, models, slow auditory presentation of information, and tactile cues as needed. Repetition, object naming, word fluency,sentence completion, and responsive speech are all impaired. Ynes demonstrates a favorable response to use of gestures to assist with her auditory comprehension. Expressive language is characterized as fluent but mostly consists of word salad with many instances of jargon, neologisms, and paraphasias with occasional moments of intelligible discourse scattered throughout. Ynes's discourse could also be described as tangential and perseverative. She attempts to utilize gestures to augmenther expressive language, but is not always successful. She is also demonstrating breakdowns in reading comprehension at the short sentence level and significant deficits in written expression at the word level, compounded by impaired auditory comprehension preventing writing to dictation and impaired naming preventing written naming. These deficits impact the patient's ability to functionally comm unicate her wants, needs, and ideas and hold conversation. She presents with severe impairments in reading comprehension, however, she demonstrates some success with reading comprehension at the wordlevel, which appears to be a relative strength compared to her auditory comprehension. She exhibits significant breakdown in reading comprehension at the short sentence level. Ynes also demonstrates significant deficits in written expression at the single word level however this appears to be improving and her awareness of these errors appears better than her awareness of errors in verbal expression, although her awareness of errors within verbal expression is also improving steadily at the single word and short phrase level. She also demonstrates relative strength in copying words and sentences, as well as writing numbers. It has been determined that the patient demonstrates deficits that impact functioning in daily activities and hinder participation in life situations.??Patient currently requires assistance from others to communicate basic wants and needs and direct her medical care. Pt will continue to benefit from her needs being anticipated and simplified information presented to her. Information should be repeated and said in different ways, and augmented with pictures and gestures. The patient is demonstrating strengths in motivation and some intact basic expressive language skills which should be utilized during the patient's plan of care to maximize gains. Contextual factors that may impact the patient's ability to progress toward rehab goals include: severity of language impairment, need for physical assistance, tolerance level for therapy, pain, and depression/anxiety d/t to social isolation secondary to hospital's COVID19 no visitor policy. Based on patient's tolerance level, it is recommended that patient participate in 30 minute BID sessions initially and build toward 60 minute sessions as tolerated. Given patient's age, independence prior to admission, and social/occupational demands, she would benefit from intensive ANESTHESIOLOGY PHYSICIAN ASSISTANT intervention. Based on the patient's rehab potential, motivation, prior level of function, and the contextual factors, the patient's prognosis is considered good. It is anticip ated that the patient will make functional gains in expressive and receptive language skills with intensive skilled 1:1 speech language pathology services in the inpatient rehabilitation setting. It is anticipated that following her discharge from inpatient rehabilitation that Ynes will require a communication partner trained in SCA and she will require ongoing intensive skilled speech-language pathology services in her next setting. Functional Communication Measures ([place] [employer], 2002). The Functional Communication Measures (FCM???s) are a series of 7 point rating scales, ranging fromleast functional (Level 1) to most functional (Level 7). They have been developed by [employer] to describe different aspects of patient???s functional communication and swallowing abilities over the course of ANESTHESIOLOGY PHYSICIAN ASSISTANT intervention. ?? Spoken Language Comprehension Level 2: With consistent, maximal cues, the individual is able to follow simple directions, respond to simple yes/no questions in context, and respond to simple words orphrases related to personal needs. Spoken Language Expression Level 3: The communication partner must assume responsibility for structuring the communication exchange, and with consistent and moderate cueing, the individual can produce words and phrases that are appropriate and meaningful in context. Reading Level 3: The individual reads single letters and common words, and with consistent moderatecueing, can read some words that are less familiar, longer, and more complex. Writing Level 2: The individual writes single letters and common words with consistent maximal cueing. ?? GOALS: Snf Goals: Projected Functional Communication Measures at discharge: Spoken Language Comprehension Level 4: Individual consistently responds accurately to simple yes/noquestions and occasionally follows simple directions without cues. Moderate contextual support is usually needed to understand complex sentences/messages. The individual is able to understand limited conversations about routine daily activities with familiar communication partners. Spoken Language Expression Level 4: The individual is successfully able to initiate communication using spoken language in simple, structured conversations in routine daily activities with familiar communication partners. The individual usually requires moderate cueing, but is able to demonstrate use of simple sentences (i.e., semantics, syntax, and morphology) and rarely uses complex sentences/messages. Reading Level 4: The individual reads words and phrases related to routine daily activities, and words that are less familiar, longer, and more complex. The individual usually requires moderate cueing to read sentences of approximately 5-7 words. Writing Level 3: The individual writes single letters and common words, and with consistent moderate cueing, can write some words that are less familiar, longer, and more complex. Short Term Goals: Auditory Comprehension: Goal #1: Patient will identify objects in a visual field of 4-6 with >80% accuracy provided minimal cues from the clinician and repetitions for fewer than 50% of trials. - Goal met. Upgrade: Patient will identify pictures that match auditory presentation of simple sentences in a visual field of 4-6 with >80% accuracy provided minimal cues from the clinician. Goal #2: Patient will answer simple yes/no questions with >80% accuracy provided fewer than 2 repetitions of the question. Goal #3: Patient will follow simple 1-step commands related to functional environment with >70% accuracy provided moderate verbal/tactile/visual cues in order to increase functional integration into environment. ?? Expressive Language: Goal #1: Patient will recite automatic speech tasks given moderate cues with >70% accuracy. Goal #2: Patient will name objects (real or pictured) to confrontation with >50% accuracy provided maximum verbal cues. Goal #3: Patient will repeat 1-2 syllable functional words with >70% accuracy provided a visual model by the clinician. - Goal met. Upgrade: Patient will repeat 1-2 syllable functional words, consistently across 3 trials, with >90% accuracy provided a visual model by the clinician. ?? Reading Comprehension: Goal #1: The patient will identify the written word in a field of 2, given an auditory model with 80% accuracy. - Goal met. Upgrade: The patient will identify a written phrase from a field of 2, given an auditory model with 80% accuracy Goal #2: The patient will identify the written word to match a given object or picture with 80% accuracy in a field of 3 (presented in a vertical orientation). Written Expression: Goal #1: The patient will write functional words and short phrases related to personal information (e.g., name, address, date of ) with 90% accuracy given mod verbal/visual cues. - Goal met. Upgrade: Patient will write the name of the object/item, provided a picture and it's label verbally, with 80% accuracy provided moderate verbal/visual cues. Augmentative Communication Goal #1: The patient will generate gestures representing basic needs with 80% accuracy in response to auditory or visual instruction. ?? Plan RECOMMENDATIONS: Patient will continue to benefit for further ANESTHESIOLOGY PHYSICIAN ASSISTANT intervention in this setting to address aphasia management and intervention needs. ?? Recommend inpatient rehabilitation ANESTHESIOLOGY PHYSICIAN ASSISTANT services: Patient will be seen for a minimum of 5x/week @ 30minutes BID due to current tolerance level. ?? Communication Access and Shared Decision Making Recommendations Please support communication access and shared decision making ability by doing the following: ?? Support Comprehension: ?? Have a pen and paper ready when communicating. ?? Please present information slowly and simplify. Augment with drawings, diagrams, gestures and pointing. ?? Ask one question at a time. ?? Have only one person speak at a time. ?? Environmental modifications:? Simplify the environment: ?? Carryover/Discharge??and Healthcare Decision making considerations ?? Will need family support for the successful carryover of discharge recommendations. ?? Currently comprehension of non-contextual information is a barrier Oliva Martinez MS CCC-ANESTHESIOLOGY PHYSICIAN ASSISTANT, MS, CCC-ANESTHESIOLOGY PHYSICIAN ASSISTANT 03/24/2020 17:06 * Eliza Douglas, OT - 03/24/2020 6367 EDT [facility] Rehabilitation Therapy Inpatient Rehabilitation [facility] Occupational Therapy Encounter Note Date of Service: 03/24/2020 SUBJECTIVE: Through gestures and words, pt was questioning the plan for her g- tube when she goes home. SESSION 1 OBJECTIVE: Start time: 1000 Treatment time: 30 Scheduled time: 30 Total Therapy Minutes: 30 minute(s) Interventions included: Pt required assist to fasten her helmet. Today we removed her helmet to show her how to fasten. Pt proceeded to fasten her helmet with supervision. She repeated this at the end of the session correctly/independently. Ambulated with min contact assist and gait belt to quiet treatment room. Pt stopping to wave, say hi, and accurately said I remember you from the other night to an INTELLIGENCE OFFICER BASIC. Neuromuscular Re-education Bits Visual Scanning Score: First time Accuracy: 95.92% Time: 1 min Reaction: 1.25 sec #hits 47 (improved from 28, 6 days ago) Score: Second time Accuracy: 95.56% Time: 1 min Reaction: 1.39 sec # hits 43 (improved from 35, 6 days ago) SESSION 2 OBJECTIVE: Start time: 1400 Treatment time: 30 Scheduled time: 30 Total Therapy Minutes: 30 minute(s) Interventions included: Self-Care/Home Management Family education initiated. Pt and OT contacted planned support person, Ever. Initiated caregiver education: Topics included: Vision, helmet, aphasia, overstimulation, home set up, services Vital signs: Vital signs have been stable with interventions and were not monitored. Patient/Family Education: See above Ever indicated understanding and asked good questions. Team Communication: Rounds ASSESSMENT: Pt tolerating treatment very well. She is interactive and engaging. She is retaining new learning and able to follow gestures and simple words for instruction. Continues to have head pain intermittently Caregiver education initiated. Ever indicates readiness and willingness to support. He was receptiveto information. PLAN: Continue Med management BITs Meal prep Family Training - family coming on Saturday Eliza Douglas OT, 03/24/2020, 7:41 * Monet Serna RN - 03/24/2020 6870 EDT Data: Pt alert. Pt pantomimes to her head and acknowledged fiction and nonfiction prose writer when asked if she was in pain. Ptreported 6/10 pain and pointed to her head. Action: fiction and nonfiction prose writer provided darkness, quiet, and pain medication. Response: pt was able to rest comfortably. MONET SERNA RN 03/24/2020 5:10 * Blanca Llamas RN - 03/23/2020 1859 EDT To Radiology main [place] at 1640 via ambulance for MRI of head. Medicated for pain at 1555 and 1635. * Jaden Rutherford MD - 03/23/2020 1239 EDT Images from the original note were not included. Physiatry Progress Note Admit Date: 03/02/2020 Hospital Day: LOS: 21 days Date of Service: 03/23/2020 Chief Complaint: Left temporoparietal hemorrhage status post decompressive craniectomy, setting of central venous thrombosis 02/14/2020 Subjective: Continues to have episodes of headache, which at the time are fairly severe, and at times bringing her to tears. There is no evidence of focal neurologic changes during headache. Has continued intermittent abdominal pain. Hematology follow-up this morning appreciated. Current Facility-Administered Medications: acetaminophen (TYLENOL) tablet 650 mg oral Q4H PRN aspirin chewable tablet 81 mg oral DAILY bisacodyL (DULCOLAX) suppository 10 mg rectal Q48H PRN calcium carbonate (TUMS) 200 mg calcium (500 mg) per chewable tablet tablet,chewable 1 Tab oral QIDPRN docusate sodium (COLACE) capsule 100 mg oral BID PRN enoxaparin (LOVENOX) injection 60 mg subcutaneous Q12H guaiFENesin tablet 200 mg oral Q6H PRN HYDROmorphone (DILAUDID) tablet 2 mg oral Q4H PRN lactulose (CHRONULAC) 20 gram/30 mL solution 30 mL oral BID PRN melatonin tablet 3 mg oral QHS multivitamin (FLINTSTONES) chewable tablet 1 Tab oral DAILY ondansetron (ZOFRAN-ODT) disintegrating tablet 4 mg oral Q8H PRN pantoprazole (PROTONIX) tablet 40 mg oral DAILY papain-alpha amylase-cellulase (CLOG ZAPPER) 2-5 mL feeding tube PRN polyethylene glycol 3350 (MIRALAX) packet 17 g oral Daily PRN QUEtiapine (SEROQUEL) tablet 6.25 mg oral QHS senna (SENOKOT) tablet 1 Tab oral BID PRN Objective/Physical Exam: VS: Patient Vitals for the past 8 hrs: BP Pulse Resp Temp 03/23/20 0652 119/57 80 14 36.1 ??C (97 ??F) Pain: Patient Vitals for the past 8 hrs: Numeric Pain Level (Scale 1-10) 03/23/20 1000 6 03/23/20 0900 8 03/23/20 0835 8 03/23/20 0834 8 03/23/20 0721 8 Weight: Weight : 83.5 kg (184 lb) Glucose Readings (last 8 readings): No results for input(s): GLUCOSEFINGE in the last 72 hours. I&O: Intake/Output Summary (Last 24 hours) at 03/23/2020 1239 Last data filed at 03/23/2020 0700 Gross per 24 hour Intake 240 ml Output -- Net 240 ml Exam: Gen: Alert, pleasant, no distress HEENT: Left decompressive hemicraniectomy site slightly sunken. Surgical incision with small areas of eschar. Evidence of a right homonymous hemianopsia. No facial droop. Neck supple. Mucosal membranes are moist Skin: no rashes Cardiac: Cor RRR Pulmonary: clear to auscultation bilaterally Abdomen: normal bowel sounds, soft, nontender to palpation, PEG tube has a small split in it just above the bumper, with no further leaking after placing an adhesive over the leak (tape). Musculoskeletal: no joint tenderness, deformity or swelling, no muscular tenderness noted, full range of motion without pain Neuro: Expressive greater than receptive aphasia affect: Alert Motor: No focal motor weakness. There is some relative right lower extremity weakness compared to the other extremities but does not appear clinically significant. Tone normal Reflexes: trace Sensation: No extinction no clear focal sensory loss Cerebellar: no tremors Labs: I have personally reviewed CBC: Lab Results Component Value Date WBC 5.16 03/21/2020 RBC 3.71 (L) 03/21/2020 HGB 11.6 03/21/2020 HCT 34.4 (L) 03/21/2020 MCV 93 03/21/2020 MCH 31.3 03/21/2020 MCHC 33.7 03/21/2020 PLT 220 03/21/2020 NEUTROABS 2.93 03/18/2020 BMP: Lab Results Component Value Date NA 134 (L) 03/21/2020 K 5.2 (H) 03/21/2020 CL 100 03/21/2020 CO2 26 03/21/2020 BUN 34 (H) 03/18/2020 CREATININE 0.65 03/21/2020 CALCIUM 7.5 (L) 03/18/2020 MG 1.7 03/02/2020 PHOS 4.6 (H) 03/07/2020 LABALBU 2.6 (L) 03/18/2020 Assessment/Problems: (update problem list daily as appropriate) Patient Active Problem List Diagnosis Date Noted ??? *(H)Left-sided nontraumatic intracerebral hemorrhage ([facility]) 03/02/2020 Priority: Medium Status post decompressive hemicraniectomy ??? Brain herniation ([facility]) 02/17/2020 Priority: Medium ??? Cerebral edema ([facility]) 02/17/2020 Priority: Medium ??? 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 (H)Cerebral venous thrombosis 02/14/2020 Priority: Medium ??? Encounter for insertion or removal of intrauterine contraceptive device 02/12/2020 Priority: Medium ??? Nicotine dependence, unspecified, uncomplicated 02/12/2020 Priority: Medium ??? Perimenopausal 02/12/2020 Priority: Medium ??? Post concussion syndrome 02/12/2020 Priority: Medium ??? Tobacco abuse 12/02/2012 Priority: Medium ??? Chronic low back pain 10/13/2012 Priority: Medium ??? Back pain 09/25/2012 Priority: Medium ??? Primary hypercoagulable state ([facility]) 03/23/2020 Class: Permanent Thrombosis Events A. 11/17/2019: [...] issue. Treatment and prevention A. Will need snf anticoagulation - agent TBD Plan: 1. Left frontal intraparenchymal hemorrhage: Status post decompressive craniectomy. Patient with residual mild right-sided weakness, significant expressive and receptive aphasia, dysphagia, right homonymous hemianopsia. Full PT, OT, ANESTHESIOLOGY PHYSICIAN ASSISTANT to address mobility, self care communication and swallowing fun ction. 24 hour rehab nursing for self care deficits. Continued intermittent headache, which appearsto improve with some distraction and has improved each time spontaneously. Is reassuring with a recent CT scan but no acute changes are going on. Helmet on when out of bed. Diet advanced to regular consistency. 2. 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 Evidence of left IJ, sigmoid and transverse sinuses as well. THP follow-up appreciated and she will remain on heparin, continue to monitor levels. As discussed with Dr. Maria, it is reasonable to get a MR venogram to see if there is a secondary etiology of her headache including progressive thrombosis, or hemorrhage. 3. Right upper lobe pulmonary embolism, left upper extremity DVT: Now on therapeutic dose Lovenox. ?? 4. History of anxiety/depression: Monitor clinically. Doing well with the Seroquel taper. Consider medical psychology consultation as language deficits allow. She has listed allergies to citalopram and duloxetine. 5. Nutrition: PEG tube placed 02/18/2020. Goal is to keep the tube in place for at least 6 weeks after placement, as reviewed with Dr. Branch from acute care surgery. Diet is currently regular consistency I spent a total of 35 minutes in direct floor time dedicated solely to this patient and 20 minutes of that time was spent in discussion with the patient about the risks and treatment options for headache, thrombosis.. Jaden Rutherford MD 03/23/2020 12:39 * Aida Goodman, DPT - 03/23/2020 0841 EDT [facility] Rehabilitation Therapy Inpatient Rehabilitation [facility] Physical Therapy Encounter Note Date of Service: 03/23/2020 , Activity: Level of risk of Harm B, Activity as tolerated, , Additional Precautions Information: LBone flap precautions (helmet OOB), R Rooke Boot in bed, PEG tube SUBJECTIVE: Pt indicated she still has a headache but she feels okay to do some exercise Pain: not rated OBJECTIVE: Start time: 1330 Total Therapy Minutes: 30 minute(s) Interventions completed today: Vital Signs: Vitals: 03/23/20 1033 BP: 129/80 BP Cuff Location: Right arm BP Patient Position: Sitting Pulse: 87 ] Gait Training: ?? Ambulation for endurance training without device. 350' with close supervision. No gross loss of balance today x3 reps with seated rests between, cuing for arm swing and scanning. ?? Gait deviations: slow speed, bilateral increased external rotation, decreased arm swing Therapeutic Exercise: ?? NuStep level 4 x 10 minutes Patient semi-fowlers in bed with bed alarm on, setting 2. Call miranda and tray table in reach. 2nd Session Time: Start time: 1500 Total Therapy Minutes: 0 minutes Pt missed 2nd session due to having an IV placed in preparation for being sent for a scan. Patient/Family Education: Topic: Deep breathing, recovery process Learner: patient Method: verbal Barriers to Learning: none noted Outcome: verbalized understanding ASSESSMENT: Ynes continues to make slow steady gains with her activity tolerance. Of note, Ynes tolerated 10 minutes without a rest break on the nu- step today and did not demonstrate any lossesof balance walking on level surfaces. She will benefit from progression to outdoor ambulation when able to tolerate it. She continues to be limited by headache and her stomach feeling ill PLAN: ?? Walking endurance ?? Functional strength training: stairs ?? Progressive leg strengthening ?? Balance ?? Outdoor ambulation Contact information: Pager: [phone] Aida Goodman DPT, CLT 03/23/2020 15:54 * Oliva Martinez, [facility]-ANESTHESIOLOGY PHYSICIAN ASSISTANT - 03/23/2020 0745 EDT Speech-Language Pathology Daily and Current Progress Note ANESTHESIOLOGY PHYSICIAN ASSISTANT Diagnosis: Aphasia Medical Diagnosis: Cerebral venous thrombosis and resultant intraparenchymal hemorrhage in the leftfrontotemporal area Date of Onset: 02/14/20 Date of Referral: 03/02/20 Subjective/Objective SUBJECTIVE: Session 1: I slept through it. He was so very helpful for you. Whoa! (in response to getting an answer correct) Dill, not widrow. I can't live like this. It hurts too much. I feel like I'm not able to control myself when I'm like this. That's a lot of pain. Session 2: I have trouble understanding in the evenings better. OBJECTIVE: Date of Service: 03/23/2020 Session One: Start Time: 1000 Total Therapy minutes: 30 minute(s) c/c tx Second Session: Start Time: 1130 Total Therapy minutes: 30 minute(s) c/c tx in the context of hematology telepractice consult Current Treatment Objectives: Auditory Comprehension: Goal #1: Patient will identify objects in a visual field of 4-6 with >80% accuracy provided minimal cues from the clinician and repetitions for fewer than 50% of trials. 03/11: Session 2- Patient identifies objects in a visual field of 4 with 100% accuracy provided written word and auditory presentation of the word. Patient identifies objects in a visual field of 6 with 80% accuracy provided written word and auditory presentation of the word. Patient requires significant repetition of each item provided field of 6 and encouragement as she was hesitant to answer frequently stating that it made her nervous to have more than 4 items to choose from. 03/12: Session 2- Patient identifies objects in a visual field of 4 with 80% accuracy provided written word and auditory presentation of the word. 03/14: Session 1- Patient identifies objects in a visual field of 4 with 70% accuracy provided written word and auditory presentation of the word. 03/15: 2nd session: Object ID (f of 4) given label and function: 88% accuracy 1. 15 6. 15 2. 15 7. 8 3. 15 8. 13 4. 15 9. / 5. 15 10. / Object ID (f of 4) given label ONLY: 50% accuracy 1. 13 6. 6 2. 15 7. 6 3. 6 8. 6 4. 13 9. 15 5. 13 10. 6 03/16: Session 1- Patient identifies objects in a visual field of 4 with 80% accuracy provided written word and auditory presentation of the word. Patient requires repetition of ~50% of items providedfield of 4. 03/17: Session 1- Patient identifies objects in a visual field of 6 with 80% accuracy provided written word and auditory presentation of the word. Patient requires repetition of ~25% of items providedfield of 4 03/21: Patient identifies object in a visual field of 6 with 70% accuracy given intermittent repetition. Patient consistently exhibited difficulty identifying helmet, but was able to with gestural support. 03/22: Session 2- Patient identifies objects in a visual field of 6 with 100% accuracy provided written word and auditory presentation of the word. 03/23: Session 1- Patient identifies objects in a visual field of 6 with 90% accuracy provided written word and auditory presentation of the word. Goal #2: Patient will answer simple yes/no questions with >80% accuracy provided fewer than 2 repetitions of the question. 03/23: Session 1- Patient answers simple yes/no questions with 40% accuracy provided fewer than 2 repetitions of the question. 1. 6- Error: Inaccurate attempt at the task item 0 repetitions 2. 13- Complete-delayed: Accurate, responsive, complete or complex, delayed 1 repetitions 3. 13- Complete-delayed: Accurate, responsive, complete or complex, delayed 0 repetitions 4. 15- Complete: accurate, responsive, complete, prompt, efficient 0 repetitions 5. 13- Complete-delayed: Accurate, responsive, complete or complex, delayed 0 repetitions 6. 6- Error: Inaccurate attempt at the task item 0 repetitions 7. 6- Error: Inaccurate attempt at the task item 1 repetitions 8. 6- Error: Inaccurate attempt at the task item 2 repetitions 9. 6- Error: Inaccurate attempt at the task item 0 repetitions 10. 6- Error: Inaccurate attempt at the task item 0 repetitions Goal #3: Patient will follow simple 1-step commands related to functional environment with >70% accuracy provided moderate verbal/tactile/visual cues in order to increase functional integration into environment. 15: Session 2- Patient follows simple 1-step commands related to environment with 0% accuracy independently. Accuracy increases to 90% accuracy following a model by the clinician with slowed auditory presentation of directions. 03/10: Session 1- Patient follows simple 1-step commands related to environment with 0% accuracy independently. Accuracy increases to 90% accuracy following a model by the clinician with slowed auditory presentation of directions. 03/12: Session 1- Patient follows simple 1-step commands related to environment with 0% accuracy independently. Accuracy increases to 62% accuracy following a model by the clinician with slowed auditory presentation of directions. 03/14: Session 2- Patient follows simple 1-step commands related to environment with 100% accuracy following a model by the clinician with slowed auditory presentation of directions. 03/15: / session: Patient followed 1 step commands in the context of therapy tasks today giveninitial demonstration. 03/16: Session 2- Patient follows simple 1-step commands related to environment with 90% accuracy following a model by the clinician with slowed auditory presentation of directions. 03/17: Session 1- Patient follows simple 1-step commands related to environment with 100% accuracy following a model by the clinician with slowed auditory presentation of directions. Patient completed1 of the commands independently without a model from the clinician today. 03/18: Session 1: Followed 2/10 simple 1 step commands independently. Patient followed ANESTHESIOLOGY PHYSICIAN ASSISTANT model with 100% accuracy. 03/19: Session 1: Followed 4/10 simple one step commands independently. Followed ANESTHESIOLOGY PHYSICIAN ASSISTANT model with 90% accuracy (blow a kiss, look out the window, big smile) 03/21: Followed 6/6 simple one-step commands given clinical model. Upon delayed repetition of the same commands, patient followed 3/6 simple one-step commands given additional repetition. 03/22: Session 1- Patient independently follows 1-step directions with 20% accuracy. Accuracy improves to 90% following a model by the clinician. 03/23: Session 1- Patient independently follows 1-step directions with 30% accuracy. Accuracy improves to 100% following a model by the clinician. Expressive Language: Goal #1: Patient will recite automatic speech tasks given moderate cues with >70% accuracy. 4/14: Session 1- Patient recites automatic speech tasks with the clinician. See results below: 1-10: 100% accuracy following a model The Alphabet: Unable to perform in unison Months of the Years: Attempted to have patient repeat each month after the clinician: November, December, (jargon), (jargon), stomach, June, April medication, June compation, sincation medication,seegus, French, lessonagus Muas, Decemegas 03/09: Session 1- Patient recites automatic speech tasks with the clinician. See results below: 1-10: 100% accuracy following a starter cue one... The Alphabet: T1: A, me, S, d, 8, q, A, me, d, ec, q, g, h, eed, h ; T2: Patient was able to achieve 50% in unison with the clinician but eventually perseverated on w Days of the Week: Patient perseverated on w, k despite max cues, models, and attempts to perform in unison Session 2- Patient recites automatic speech tasks with the clinician. See results below: 1-10: 80% accuracy following a repetition of the instructions; 80% accuracy in trial 2 following a repetition of the instructions. The Alphabet: A, 7 you mean? following max cues and models Days of the Week: Patient perseverated on w, k despite max cues, models, and attempts to perform in unison 03/10: Session 1- Patient recites automatic speech tasks with the clinician. See results below: 1-10: 100% accuracy The Alphabet: a, q, q, jews, each, l, l, elf Days of the Week: w, q, w, q, w, q, l, q, l, q 03/12: Session 2- Patient recites automatic speech tasks with the clinician. See results below: 1-10: 90% accuracy The Alphabet: l, n, h, stomich, a, m, h, m, etch, is it etch? Days of the Week: elmen, elmen threemen, riley three hundred, h, h, eight? No, stomach 03/14: Session 2- Patient recites automatic speech tasks with the clinician. See results below: 1-10: 90% accuracy Days of the Week: feminal, lessons, lezimen... 03/16: Session 1- Patient recites automatic speech tasks with the clinician. See results below: 1-10: 0% accuracy Days of the Week: drama, bever, mener, sever... 03/17: Session 1- Patient recites automatic speech tasks with the clinician. See results below: 1-10: 100% accuracy Days of the Week: Saturday, Saturday, Wender, Thunder, Wender, Sender, Fender when repeating each day individually following a model by the clinician. 03/18: Session 1: Counting 1-10 Trial one: 04/03. Trial Two: 07/06 (Eight, Ninth, Tenth, Eleventh, Twelfth - Is that what you want? I got lost. 03/19: Session 1: Counting 1-10 at 90% accuracy, Days of the week - 03/01 03/21: Patient recites automatic sequences with the following accuracy: Counting 1-10: 08/04 (error: ten-hundred) Days of the week: 01/01 (perseveration on hundred e.g., nine one hundred). Following break and spontaneous production of Saturday: 05/31 03/22: Session 1- Days of the week: T1- 01/29 provided moderate visual and verbal cues; T2- 03/01provided moderate visualand verbal cues 03/23: Session 1- Patient recites automatic speech tasks with the clinician. See results below: 1-10: 100% accuracy Days of the Week: T1- [place],er, , nunder, huster, , Saturday (using max visual cues) T2- Saturday, , , , , Saturday, Saturday (using max visual cues) Goal #2: Patient will name objects (real or pictured) to confrontation with >50% accuracy provided maximum verbal cues. Probe: naming an object from a fo2 multiple choice- 20% accuracy (patient struggling with repeatingthe words, producing neologisms or paraphasias) 03/15: 2nd session: Repeating name of pictured object (in spontaneous context) in the context of a written expression task: ~50% accuracy (with partial credit for spelling a word out loud accurately!) 1. 6 2. 6 3. 15 4. 15 5. 8* * spelled the word out loud correctly! 03/16: Session 1- Patient names real pictured objects to confrontation provided maximum cues (phonemic, semantic, cloze, repetition, etc.) with 0% accuracy. Target Response 1. Earth derb (max cues) 2. door dargis (max cues) 3. pants stargus (max cues) 4. boxing dargus (max cues) 5. taco targus (max cues) 03/19: Session 1: Confrontation naming of everyday color photographs 0 however it was noted that patient began using gestures independently with photos in 05/04 pictures (gestured hat, phone, wells, wrist watch, scissors and egg) Patient stated, I never do that before, it's fun! New Goal written. 03/21: Patient named objects in 0/5 trials due to perseveration on Stomach/Sunnik. Patient repeated names as detailed below. 03/22: Session 2- Patient names real pictured objects to confrontation provided maximum cues (phonemic, semantic, cloze, repetition, etc.) with 20% accuracy. Target Response 1. apple Basket, but its... Bicycle 2. hat askit 3. tennis Not yasemin sineart 4. pillow wash 5. hand That's a nasgul. 6. horse mushick 7. helmet bicycle 8. paper hanger Oh that's um... mailed 9. stomach stomach 10. squirrel Squirrel (phonemic cue provided) 03/23: Session 1- Patient names real pictured objects to confrontation provided maximum cues (phonemic, semantic, cloze, repetition, etc.) with 0% accuracy. Target Response 1. sun Mike (imitation: sun, sund) 2. road caniger (imitation: road) 3. skiing NR (imitation: ) 4. tie Skrio, skumer (imitation: Saturday) Goal #3: Patient will repeat 1-2 syllable functional words with >70% accuracy provided a visual model by the clinician. 03/09: Session 2- Patient repeats 1-2 syllable functional words with 10% accuracy provided a visual model by the clinician. For 60% of trials patient produced neologisms and for 30% of trials patient produced phonemic paraphasias. See results below: 2. 6- Error: Inaccurate attempt at the task item; neologism 3. 6- Error: Inaccurate attempt at the task item; neologism 4. 15- Complete: accurate, responsive, complete, prompt, efficient 5. 14- Distorted: accurate, responsive, complete or complex, prompt, distorted; phonemic paraphasia 6. 6- Error: Inaccurate attempt at the task item; neologism 7. 6- Error: Inaccurate attempt at the task item; neologism 8. 14- Distorted: accurate, responsive, complete or complex, prompt, distorted; phonemic paraphasia 9. 14- Distorted: accurate, responsive, complete or complex, prompt, distorted; phonemic paraphasia 10. 6- Error: Inaccurate attempt at the task item; neologism 03/10: Session 1- Patient repeats 1-2 syllable functional words with 30% accuracy provided a visual model by the clinician. For 70% of trials patient produced neologisms. See results below: 1. 8- Cued: Accurate, after cue is given; neologism for first few trials; required tactile and visual cues 2. 15- Complete: accurate, responsive, complete, prompt, efficient 3. 6- Error: Inaccurate attempt at the task item; neologism 4. 6- Error: Inaccurate attempt at the task item; neologism 5. 15- Complete: accurate, responsive, complete, prompt, efficient 6. 15- Complete: accurate, responsive, complete, prompt, efficient 7. 6- Error: Inaccurate attempt at the task item; neologism 8. 6- Error: Inaccurate attempt at the task item; neologism 9. 6- Error: Inaccurate attempt at the task item; neologism 10. 6- Error: Inaccurate attempt at the task item; neologism Session 2- Patient repeats 1-2 syllable functional words with 30% accuracy provided a visual model by the clinician. For 70% of trials patient produced neologisms. 03/11: Session 1- Patient repeats 1-2 syllable functional words with 0% accuracy provided a visual model by the clinician. See results below: Target Response 1. socks stomach 2. chair Stomach mesausen 3. finger megas megasarus 4. baby Lady mesasus 5. helmet helmamarier 6. Earth siroath 7. mandaen churchtons 8. pepper lymins 9. shorts short hundreds 10. sink [place] desa[place]in; sank; sank 03/12: Session 1- Patient repeats 1-2 syllable functional words with 50% accuracy provided a visual model by the clinician. See results below: Target Response Error Type 1. teeth clun neologism 2. golf nogolsh neologism 3. crown clanin neologism 4. rice rice - 5. money money - 6. horse horse - 7. doctor Stomach menesis Perseveration + neologism 8. legs Leg? that's it? leg - 9. wallet walwalleck Phonemic paraphasia 10. pizza pizza. I know that. - 03/14: Session 1- Patient repeats 1-2 syllable functional words with 30% accuracy provided a visual model by the clinician. Errors were typically phonemic paraphasias with the occasional neologism. See results below: Target Response Error Type 1. onion umion Phonemic paraphasia 2. chair air Phonemic paraphasia 3. zipper zipper - 4. chest shate neologism 5. boxing dockwis neologism 6. soldier soulmir Phonemic paraphasia 7. saw sawmich Neologism + perseveration 8. kitchen kitchen - 9. corn corn - 10. vacuum vactum Phonemic paraphasia Session 2- Patient repeats 1-2 syllable functional words with 10% accuracy provided a visual model by the clinician. Errors were typically phonemic paraphasias with the occasional neologism. See results below: Target Response Error Type 1. hat s- um, hat - 2. salad holad Phonemic paraphasia 3. chair Stomach attic Neologism + perseveration 4. bird Stomach umanick Neologism + perseveration 5. money kathya attic Phonemic paraphasia + neologism 6. hand hammock Phonemic paraphasia 7. rice dammish neologism 8. pool amicus neologism 9. glasses dimanick neologism 10. watch gamican neologism level Probe: Repeating functional phrases Target Response 1. Hi. Hi. 2. How are you? How are yule? 3. My name is Ynes. My name spill it. 4. I need help. I need united something. 5. I'm hungry. Nide medical under. 03/15: 1st session: Repeating of single words in the context of reading comprehension task today: 01/06, 17% accuracy, patient demonstrated poor awareness of her errors. Cloze cues were successful at eliciting target word on two instances, however this is not consistently successful 03/16: Session 1- Patient repeats 1-2 syllable functional words with 50% accuracy provided a visual model by the clinician. Errors were typically phonemic paraphasias. See results below: Target Response Error Type 1. bee bee - 2. doctor doctor - 3. beach beach - 4. level lever phonemic paraphasia 5. hand hand - 6. lamp ganter neologism 7. glove glug phonemic paraphasia 8. helmet helment phonemic paraphasia 9. coffee cofter phonemic paraphasia 10. baby baby - Probe: Repeating functional phrases Target Response 1. Hi. My. 2. How are you? Why are you? 3. My name is Ynes. My eater... (jargon) 4. I need help. I need kayla. 5. I'm hungry. I'm mentor. 6. I'm thirsty. My ever. 7. I need to use the toilet. (jargon) Session 2- Patient repeats 1-2 syllable functional words with 40% accuracy provided a visual model by the clinician. Errors were typically phonemic paraphasias and occasionally neologisms. See results below: Target Response Error Type 1. whale leborston neologism 2. house hout Phonemic paraphasia 3. bed den Phonemic paraphasia 4. dress gama Phonemic paraphasia 5. onion onion - 6. money many Phonemic paraphasia 7. road road - 8. football whipnar neologism 9. shoulder shoulder - 10. nurse nurse - 03/17: Session 1- Patient repeats 1-2 syllable functional words with 80% accuracy provided a visual model by the clinician, with credit provided for items that were accurate following multiple trials.Errors were typically phonemic paraphasias. See results below: Target Response Error Type 1. ball ball - 2. sheep Sheet, sheet, sheep Phonemic paraphasia x2 3. stomach stomach - 4. bus bent, but, bus Phonemic paraphasia x2 5. french professor french professor - 6. towels dowel, towels Phonemic paraphasia x1 7. peas teas, teas, tears Phonemic paraphasia x3 8. zipper Zippernight, ,zipper, zipper Phonemic paraphasia x1 9. soccer soccer - 10. crab Cow, crite, choirs Phonemic paraphasia x3 Probe: Repeating functional phrases Target Response 1. Hi. Hi. 2. How are you? T1: Hi owe tour? T2: Hi owe tart? 3. My name is Ynes. T1: My nert T2: Nines ert. 4. I need help. T1: My niners apartments. T2: My nine apartments. 5. I'm hungry. T1: Mine a none-is. T2: Mine dunion. 6. I'm thirsty. T1: Mine abundon. 7. I need to use the toilet. T1: I need abindon melinder. 03/21: Patient repeats 1-2 syllable functional words with 75% accuracy provided a visual model by clinician. Activity discontinued due to perseveration on jargon sunnik and inability to follow further models. Results as follows: Target Response Error Type 1. glasses Glasses - 2. Phone Foam, phone, phone Phonemic paraphasia x1 4. tissue Tissue, tissue - 5. pencil Tensik, tensik Phonemic paraphasia x4 03/22: Session 1- Patient repeats 1-2 syllable functional words with 60% accuracy provided a visual model by the clinician, with credit provided for items that were accurate following multiple trials.Errors were typically phonemic paraphasias. See results below: Target Response Error Type 1. hand Stomach; hand Semantic paraphasia x1 2. fence Hent; fent Phonemic paraphasia x2 3. lizard lizard - 4. ice ice - 5. dress dress - 6. customer quality specialist customer quality specialist - 7. playground Playdown; playdumb Phonemic paraphasia x2 8. soccer socter Phonemic paraphasia 9. ear ear - 10. iron Iron; I-erd -; phonemic paraphasia Session 2- Patient repeats 1-2 syllable functional words with 50% accuracy provided a visual model by the clinician, with credit provided for items that were accurate following multiple trials. Errors were typically phonemic paraphasias. See results below: Target Response Error Type 1. kitchen kitchen - 2. candle candle - 3. pizza Veetza; pizza Phonemic paraphasia x1 4. skirt Skanicks; skins Phonemic paraphasia x2 5. hockey Hackhair; hockey Phonemic paraphasia x1 6. office cashier office cashier - 7. door Handstop; guilherme, no...; handoor, door Neologisms & paraphasias 8. salad salad - 9. floor Birch Phonemic paraphasia 10. waist waist - Probe: Repeating functional phrases Target Response 1. Hi. Hide. Hide. Hi. 2. How are you? How are your? 3. My name is Ynes. My nor, name, nor, my name is doored. 4. I need help. (jargon) 5. I'm hungry. A door 03/23: Session 1- Patient repeats 1-2 syllable functional words with 40% accuracy provided a visual model by the clinician, with credit provided for items that were accurate following multiple trials.Errors were typically phonemic paraphasias. See results below: Target Response Error Type 1. owl mike neologism 2. elbow elbow - 3. pie pie - 4. toilet bimics neologism 5. tree tree - 6. button juckon Phonemic paraphasia 7. soup seep Phonemic paraphasia 8. bench bench - 9. sweater salmage Phonemic paraphasia 10. bee Bee-elmidge Phonemic paraphasia Reading Comprehension: Goal #1: The patient will identify the written word in a field of 2, given an auditory model with 80% accuracy. 03/11: Session 2- Patient identifies written words in a field of 2, given an auditory model with 81%accuracy. 03/12: Session 2- Patient identifies written words in a field of 2, given an auditory model with 50%accuracy. 03/16: Session 2- Patient identifies written words in a field of 2, given an auditory model with 67%accuracy. 03/18: Session 1: Patient identified written words in a field of 2 (presented vertically) with 60% accuracy (LARK word cards). 03/22: Session 1- Patient identified written words in a field of 2 (presented vertically) with 100% accuracy. Goal #2: The patient will identify the written word to match a given object or picture with 80% accuracy in a field of 3 (presented in a vertical orientation). 03/12: Session 1- Patient identifies the written word from a field of 3, given a picture of an object, with 53% accuracy. 03/14: Session 2- Attempted but could not complete d/t patient complaining of not being able to see stimuli d/t them being blurry. 03/15: 1st session: Patient was given a pictured object/item and then presented with three words, written by clinician in a vertical presentation and held upright for her viewing. She then used the picture to 'underline' the matching written word. She independently manipulated the picture to aid hervision. Word to picture match (f of 2 words), presented vertically: 100% accuracy 1. 13 6. 13 2. 15 7. / 3. 13 8. / 4. 15 9. / 5. 13 10. / Word to picture match (f of 3 words), presented vertically: 83% accuracy 1. 6 6. 15 2. 13 7. / 3. 15 8. / 4. 13 9. / 5. 15 10. / 03/16: Session 2- Probe: Patient identifies written 2-3 word phrases from a field of 2, given a picture of an object with 50% accuracy. 03/18: Session 1: Word to picture (field of 3 words), presented vertically: 07/04 at 80% Written Expression: Goal #1: The patient will write functional words and short phrases related to personal information (e.g., name, address, date of ) with 90% accuracy given mod verbal/visual cues. 03/09: Session 2- Patient writes functional words and short phrases related to personal information.See results below: Name: 100% accuracy Address: Patient does not provide street number, street name, or apartment number. She did write inapartment number once clinician wrote in the street number and street name. She got 100% accuracy for city and state. Phone Number: 100% accuracy Occupation: Unable to complete. 03/12: Session 1- Patient writes functional words and short phrases related to personal information.See results below: Name: 100% accuracy Address: 100% accuracy following a self-correction Phone Number: 100% accuracy Occupation: 100% accuracy following request for clarification and mod cues from the clinician 03/15: 2nd session: Patient copied her first and last name accurately and independently. Probe: Patient presented with a pictured object/item and provided it's label verbally. She was asked to write the name of the object/item. Initial perseveration on the letter of her first name, however she recognized this error and accurately self corrected to write the first 2 letters of the word 'dog' (accurate for picture). Given two written foils of the accurate spelling, she quickly and accurately identified the correct spelling (and did so with 100% accuracy subsequently). Trials were continued: 1. 12/MC 2. 12/MC 3. 8/MC 4. 15* 5. 12 given initial letter 12 = partially correct spelling which most often included initial 2 letters of the word being written accurately MC = successful identification of the spelling given multiple choice *spelled aloud accurately, otherwise spelling aloud characterized by jargon letters Augmentative Communication Goal #1: The patient will generate gestures representing basic needs with 80% accuracy in response to auditory or visual instruction. 03/19 Session 1: Patient generated gestures independently with photos in 6/10 pictures with 60% accuracy (hat, phone, wells, wrist watch, scissors and egg). 03/22: Session 2- Patient generated gestured independently with photo description task to augment communication effectively with ~75% effectiveness. 03/23: Session 2- Patient functionally communicates her basic wants and needs using gestures and provided maximum visual, verbal, gestural and contextual cues from the speech-language pathologist to Dr. Maria, her hematology doctor, via telemedicine consult. With this level of support, she was able to convey that she has been having increasing headaches for the past [address] Maria was able to communicate a plan to her regarding this involving further head imaging and medication dose management. Patient required written context words and simplified explanation with gestures of the overallencounter from the ANESTHESIOLOGY PHYSICIAN ASSISTANT. Going forward, family/caregiver education regarding communication facilitation and SCA for Ynes would be appropriate via Zoom/Facetime or in person if possible. PATIENT/FAMILY EDUCATION: Patient/Family Education: Patient/family education was provided today including: rehab goals and questions were addressed. Topic: Patient/Family education and training was completed today including: the role of Speech-Language Pathology Aphasia Information related to hematology consult questions were addressed Learner: patient Method of Education: Verbal and Written Barriers to Learning/Education: fatigue, headache pain, and presence of language impairment Patient: needs further instruction and education Family: No family present. Patient/Family Goals: Patient states I want to get better. Team Communication: Conversation with patient's OT who is suspecting a right homonymous hemianopsia ?? Assessment /CLINICAL IMPRESSIONS: Ynes White is a female 50 y.o. 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 It should be noted that patient went to [facility] for head CT and abdominal/ pelvis CT secondary to severe headaches and stomach ache on 03/18. Today, Ynes is limited by severe headaches that appear to interfere with her ability to participate more than in previous sessions with this clinician. Despite this, she demonstrates improvements in auditory comprehension at the single word level provided a fo6 choices. She also demonstrates continued steady improvements with repetition skills at the single word level. She continues to rely on significant gestural supports and models to follow simple directions and answer yes/no questions, however this is steadily improving. Ynes remains appropriate for 30 min BID sessions for aphasia intervention based on her level of fatigue and headache pain. Ynes is augmenting her communication with gestures, facial expressions, and intonation at this time, and this is judged to be effective ~75% of the time with a familiar communication partner. She is able to augment communication today, with moderate-maximum scaffolding from the ANESTHESIOLOGY PHYSICIAN ASSISTANT, when communicating with her hematology doctor via a Zoom consult to communicate her concerns regarding her headaches becoming more frequent and more severe. She continues to benefit from an Supported Communication for Adults with Aphasia (SCA) approach, provided gestures, drawings, and single written context words to support her auditory comprehension. Due to her high needs for supported language, Ynes's familiar conversational partners (significant other Ever and sister Stacey Messina) would benefit from training in implementation of SCA and the plan is to attempt to arrange this via Facetime or Zoom during an upcoming speech-language pathology session. Ynes White currently presents with severe expressive and receptive aphasia, most consistent with Wernicke's type but with some deviation from typical Wernicke's type presentation. Patient appears to be able to follow some basic 1-step commands effectively provided context, models, slow auditory presentation of information, and tactile cues as needed. Repetition, object naming, word fluency,sentence completion, and responsive speech are all impaired. Ynes demonstrates a favorable response to use of gestures to assist with her auditory comprehension. Expressive language is characterized as fluent but mostly consists of word salad with many instances of jargon, neologisms, and paraphasias with occasional moments of intelligible discourse scattered throughout. Ynes's discourse could also be described as tangential and perseverative. She attempts to utilize gestures to augmenther expressive language, but is not always successful. She is also demonstrating breakdowns in reading comprehension at the short sentence level and significant deficits in written expression at the word level, compounded by impaired auditory comprehension preventing writing to dictation and impaired naming preventing written naming. These deficits impact the patient's ability to functionally comm unicate her wants, needs, and ideas and hold conversation. She presents with severe impairments in reading comprehension, however, she demonstrates some success with reading comprehension at the wordlevel, which appears to be a relative strength compared to her auditory comprehension. She exhibits significant breakdown in reading comprehension at the short sentence level. Ynes also demonstrates significant deficits in written expression at the single word level however this appears to be improving and her awareness of these errors appears better than her awareness of errors in verbal expression, although her awareness of errors within verbal expression is also improving steadily at the single word and short phrase level. She also demonstrates relative strength in copying words and sentences, as well as writing numbers. It has been determined that the patient demonstrates deficits that impact functioning in daily activities and hinder participation in life situations.??Patient currently requires assistance from others to communicate basic wants and needs and direct her medical care. Pt will continue to benefit from her needs being anticipated and simplified information presented to her. Information should be repeated and said in different ways, and augmented with pictures and gestures. The patient is demonstrating strengths in motivation and some intact basic expressive language skills which should be utilized during the patient's plan of care to maximize gains. Contextual factors that may impact the patient's ability to progress toward rehab goals include: severity of language impairment, need for physical assistance, tolerance level for therapy, pain, and depression/anxiety d/t to social isolation secondary to hospital's COVID19 no visitor policy. Based on patient's tolerance level, it is recommended that patient participate in 30 minute BID sessions initially and build toward 60 minute sessions as tolerated. Given patient's age, independence prior to admission, and social/occupational demands, she would benefit from intensive ANESTHESIOLOGY PHYSICIAN ASSISTANT intervention. Based on the patient's rehab potential, motivation, prior level of function, and the contextual factors, the patient's prognosis is considered good. It is anticip ated that the patient will make functional gains in expressive and receptive language skills with intensive skilled 1:1 speech language pathology services in the inpatient rehabilitation setting. It is anticipated that following her discharge from inpatient rehabilitation that Ynes will require a communication partner trained in SCA and she will require ongoing intensive skilled speech-language pathology services in her next setting. Functional Communication Measures ([place] [employer], 2002). The Functional Communication Measures (FCM???s) are a series of 7 point rating scales, ranging fromleast functional (Level 1) to most functional (Level 7). They have been developed by [employer] to describe different aspects of patient???s functional communication and swallowing abilities over the course of ANESTHESIOLOGY PHYSICIAN ASSISTANT intervention. ?? Spoken Language Comprehension Level 2: With consistent, maximal cues, the individual is able to follow simple directions, respond to simple yes/no questions in context, and respond to simple words orphrases related to personal needs. Spoken Language Expression Level 3: The communication partner must assume responsibility for structuring the communication exchange, and with consistent and moderate cueing, the individual can produce words and phrases that are appropriate and meaningful in context. Reading Level 3: The individual reads single letters and common words, and with consistent moderatecueing, can read some words that are less familiar, longer, and more complex. Writing Level 2: The individual writes single letters and common words with consistent maximal cueing. ?? GOALS: Snf Goals: Projected Functional Communication Measures at discharge: Spoken Language Comprehension Level 4: Individual consistently responds accurately to simple yes/noquestions and occasionally follows simple directions without cues. Moderate contextual support is usually needed to understand complex sentences/messages. The individual is able to understand limited conversations about routine daily activities with familiar communication partners. Spoken Language Expression Level 4: The individual is successfully able to initiate communication using spoken language in simple, structured conversations in routine daily activities with familiar communication partners. The individual usually requires moderate cueing, but is able to demonstrate use of simple sentences (i.e., semantics, syntax, and morphology) and rarely uses complex sentences/messages. Reading Level 4: The individual reads words and phrases related to routine daily activities, and words that are less familiar, longer, and more complex. The individual usually requires moderate cueing to read sentences of approximately 5-7 words. Writing Level 3: The individual writes single letters and common words, and with consistent moderate cueing, can write some words that are less familiar, longer, and more complex. Short Term Goals: Auditory Comprehension: Goal #1: Patient will identify objects in a visual field of 4-6 with >80% accuracy provided minimal cues from the clinician and repetitions for fewer than 50% of trials. Goal #2: Patient will answer simple yes/no questions immediately after review with >70% accuracyprovided moderate cues for attention and initiation.- Goal met. Upgrade: Patient will answer simpleyes/no questions with >80% accuracy provided fewer than 2 repetitions of the question. Goal #3: Patient will follow simple 1-step commands related to functional environment with >70% accuracy provided moderate verbal/tactile/visual cues in order to increase functional integration into environment. ?? Expressive Language: Goal #1: Patient will recite automatic speech tasks given moderate cues with >70% accuracy. Goal #2: Patient will name objects (real or pictured) to confrontation with >50% accuracy provided maximum verbal cues. Goal #3: Patient will repeat 1-2 syllable functional words with >70% accuracy provided a visual model by the clinician. ?? Reading Comprehension: Goal #1: The patient will identify the written word in a field of 2, given an auditory model with 80% accuracy. Goal #2: The patient will identify the written word to match a given object or picture with 80% accuracy in a field of 3 (presented in a vertical orientation). Written Expression: Goal #1: The patient will write functional words and short phrases related to personal information (e.g., name, address, date of ) with 90% accuracy given mod verbal/visual cues. Augmentative Communication Goal #1: The patient will generate gestures representing basic needs with 80% accuracy in response to auditory or visual instruction. ?? Plan RECOMMENDATIONS: Patient will continue to benefit for further ANESTHESIOLOGY PHYSICIAN ASSISTANT intervention in this setting to address aphasia management and intervention needs. ?? Recommend inpatient rehabilitation ANESTHESIOLOGY PHYSICIAN ASSISTANT services: Patient will be seen for a minimum of 5x/week @ 30minutes BID due to current tolerance level. ?? Communication Access and Shared Decision Making Recommendations Please support communication access and shared decision making ability by doing the following: ?? Support Comprehension: ?? Have a pen and paper ready when communicating. ?? Please present information slowly and simplify. Augment with drawings, diagrams, gestures and pointing. ?? Ask one question at a time. ?? Have only one person speak at a time. ?? Environmental modifications:? Simplify the environment: ?? Carryover/Discharge??and Healthcare Decision making considerations ?? Will need family support for the successful carryover of discharge recommendations. ?? Currently comprehension of non-contextual information is a barrier Oliva Martinez MS CCC-ANESTHESIOLOGY PHYSICIAN ASSISTANT, MS, CCC-ANESTHESIOLOGY PHYSICIAN ASSISTANT 03/23/2020 15:40 * Eliza Douglas S, OT - 03/23/2020 0746 EDT [facility] Rehabilitation Therapy Inpatient Rehabilitation [facility] Occupational Therapy Encounter Note Date of Service: 03/23/2020 SUBJECTIVE: Pt made gestures and some intelligible language indicating that she was having stabbinghead pain. Nsg notified. ANESTHESIOLOGY PHYSICIAN ASSISTANT had seen pt just before OT and indicated that she was not having a good day with pain interfering. SESSION 1 OBJECTIVE: Start time: 1030 Treatment time: 30 Scheduled time: 30 Total Therapy Minutes: 30 minute(s) Interventions included: Neuromuscular Re-education Used a larger sectioned page from adult coloring book with focus on visual attention to all quadrants, visual scanning and attention to detail. Pt required multiple short breaks as she grimaced with what appeared to be sharp head pain. Pt demonstrated good organization, flow of pattern and attention to all quadrants without cues. She was able to resume where she left off independently. SESSION 2 OBJECTIVE: Start time: 1400 Treatment time: 30 Scheduled time: 30 Total Therapy Minutes: 30 minute(s) Interventions included: Neuromuscular Re-education Clock draw: When being presented a [place] and directions to draw a clock, with some hesitation, pt included all the numbers, in order and fairly equally spaced. She set the clock time to 12:30 when asked to set it to 11:10. Line bisection: Pt completed 2 line bisection tasks with 2 minor errors. There were 4 instances where she self corrected slight errors she had made without cues. Vital signs: Vital signs have been stable with interventions and were not monitored. ASSESSMENT: Pt appears to experiencing intermittent sharp head pain during her OT sessions. Sessions were of standard machine stitcher demand today, knowing she was having some increased pain. She gave every effort towork through. She demonstrated good problem-solving, self checking her work and developed strategies to using her fingers to find the centers of the lines. PLAN: Continue OT Advance as tolerated Pager: [phone] Eliza Douglas OT, 03/23/2020, 7:46 * Jaden Rutherford MD - 03/22/2020 1259 EDT Physiatry Progress Note Admit Date: 03/02/2020 Hospital Day: LOS: 20 days Date of Service: 03/22/2020 Chief Complaint: Left temporoparietal hemorrhage status post decompressive craniectomy, setting of central venous thrombosis 02/14/2020 Subjective: Continues to have episodes of headache, which at the time are fairly severe, but have resolved reasonably quickly. There is no evidence of focal neurologic changes during headache. Has continued intermittent abdominal pain. Lovenox was decreased yesterday in the setting of a supratherapeutic level. Current Facility-Administered Medications: acetaminophen (TYLENOL) tablet 650 mg oral Q4H PRN aspirin chewable tablet 81 mg oral DAILY bisacodyL (DULCOLAX) suppository 10 mg rectal Q48H PRN calcium carbonate (TUMS) 200 mg calcium (500 mg) per chewable tablet tablet,chewable 1 Tab oral QIDPRN docusate sodium (COLACE) capsule 100 mg oral BID PRN enoxaparin (LOVENOX) injection 60 mg subcutaneous Q12H guaiFENesin tablet 200 mg oral Q6H PRN HYDROmorphone (DILAUDID) tablet 2 mg oral Q4H PRN lactulose (CHRONULAC) 20 gram/30 mL solution 30 mL oral BID PRN melatonin tablet 3 mg oral QHS multivitamin (FLINTSTONES) chewable tablet 1 Tab oral DAILY ondansetron (ZOFRAN-ODT) disintegrating tablet 4 mg oral Q8H PRN pantoprazole (PROTONIX) tablet 40 mg oral DAILY papain-alpha amylase-cellulase (CLOG ZAPPER) 2-5 mL feeding tube PRN polyethylene glycol 3350 (MIRALAX) packet 17 g oral Daily PRN QUEtiapine (SEROQUEL) tablet 6.25 mg oral QHS senna (SENOKOT) tablet 1 Tab oral BID PRN Objective/Physical Exam: VS: Patient Vitals for the past 8 hrs: BP Pulse Resp Temp 03/22/20 0655 119/57 70 14 35.8 ??C (96.4 ??F) Pain: Patient Vitals for the past 8 hrs: Numeric Pain Level (Scale 1-10) Asleep 03/22/20 1017 7 -- 03/22/20 0857 7 -- 03/22/20 0629 0 Reassessed, sleeping comfortably, RR WNL. 03/22/20 0525 0 Reassessed, sleeping comfortably, RR WNL. 03/22/20 0426 0 Reassessed, sleeping comfortably, RR WNL. Weight: Weight : 83.5 kg (184 lb) Glucose Readings (last 8 readings): No results for input(s): GLUCOSEFINGE in the last 72 hours. I&O: Intake/Output Summary (Last 24 hours) at 03/22/2020 1155 Last data filed at 03/22/2020 0328 Gross per 24 hour Intake 360 ml Output -- Net 360 ml Exam: Gen: Alert, pleasant, no distress HEENT: Left decompressive hemicraniectomy site slightly sunken. Surgical incision with small areas of eschar. Evidence of a right homonymous hemianopsia. No facial droop. Neck supple. Mucosal membranes are moist Skin: no rashes Cardiac: Cor RRR Pulmonary: clear to auscultation bilaterally Abdomen: normal bowel sounds, soft, nontender to palpation, PEG tube has a small split in it just above the bumper, with no further leaking after placing an adhesive over the leak (tape). Musculoskeletal: no joint tenderness, deformity or swelling, no muscular tenderness noted, full range of motion without pain Neuro: Expressive greater than receptive aphasia affect: Alert Motor: No focal motor weakness. There is some relative right lower extremity weakness compared to the other extremities but does not appear clinically significant. Tone normal Reflexes: trace Sensation: No extinction no clear focal sensory loss Cerebellar: no tremors Labs: I have personally reviewed CBC: Lab Results Component Value Date WBC 5.16 03/21/2020 RBC 3.71 (L) 03/21/2020 HGB 11.6 03/21/2020 HCT 34.4 (L) 03/21/2020 MCV 93 03/21/2020 MCH 31.3 03/21/2020 MCHC 33.7 03/21/2020 PLT 220 03/21/2020 NEUTROABS 2.93 03/18/2020 BMP: Lab Results Component Value Date NA 134 (L) 03/21/2020 K 5.2 (H) 03/21/2020 CL 100 03/21/2020 CO2 26 03/21/2020 BUN 34 (H) 03/18/2020 CREATININE 0.65 03/21/2020 CALCIUM 7.5 (L) 03/18/2020 MG 1.7 03/02/2020 PHOS 4.6 (H) 03/07/2020 LABALBU 2.6 (L) 03/18/2020 Assessment/Problems: (update problem list daily as appropriate) Patient Active Problem List Diagnosis Date Noted ??? *(H)Left-sided nontraumatic intracerebral hemorrhage ([facility]) 03/02/2020 Priority: Medium Status post decompressive hemicraniectomy ??? Brain herniation ([facility]) 02/17/2020 Priority: Medium ??? Cerebral edema ([facility]) 02/17/2020 Priority: Medium ??? 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 (H)Cerebral venous thrombosis 02/14/2020 Priority: Medium ??? Encounter for insertion or removal of intrauterine contraceptive device 02/12/2020 Priority: Medium ??? Nicotine dependence, unspecified, uncomplicated 02/12/2020 Priority: Medium ??? Perimenopausal 02/12/2020 Priority: Medium ??? Post concussion syndrome 02/12/2020 Priority: Medium ??? Tobacco abuse 12/02/2012 Priority: Medium ??? Chronic low back pain 10/13/2012 Priority: Medium ??? Back pain 09/25/2012 Priority: Medium Plan: 1. Left frontal intraparenchymal hemorrhage: Status post decompressive craniectomy. Patient with residual mild right-sided weakness, significant expressive and receptive aphasia, dysphagia, right homonymous hemianopsia. Full PT, OT, ANESTHESIOLOGY PHYSICIAN ASSISTANT to address mobility, self care communication and swallowing fun ction. 24 hour rehab nursing for self care deficits. Continued intermittent headache, which appearsto improve with some distraction and has improved each time spontaneously. Is reassuring with a recent CT scan but no acute changes are going on. Helmet on when out of bed. Diet advanced to regular consistency. 2. 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 Evidence of left IJ, sigmoid and transverse sinuses as well. Now on therapeutic dose Lovenox. Low molecular weight heparin level obtained and was subtherapeutic with Lovenox adjusted to 80 mg every 12 hours. Follow-up low molecular weight heparin level today. Hematology is working on setting up a follow-up in [facility] clinic but I will askfor expediting review, given difficulty with maintaining a therapeutic dose of Lovenox.. 3. Right upper lobe pulmonary embolism, left upper extremity DVT: Now on therapeutic dose Lovenox. ?? 4. History of anxiety/depression: Monitor clinically. Doing well with the Seroquel taper. Consider medical psychology consultation as language deficits allow. She has listed allergies to citalopram and duloxetine. 5. Nutrition: PEG tube placed 02/18/2020. Goal is to keep the tube in place for at least 6 weeks after placement, as reviewed with Dr. Branch from acute care surgery. Diet is currently regular consistency Jaden Rutherford MD 03/22/2020 11:55 * Aida Goodman DPT - 03/22/2020 1147 EDT [facility] Therapy Inpatient [facility] Physical Therapy Encounter Note Date of Service: 03/22/2020 , Activity: Level of risk of Harm B, Activity as tolerated, , Additional Precautions Information: LBone flap precautions (helmet OOB), R Rooke Boot in bed, PEG tube SUBJECTIVE: Reports feeling having a headache but she took medication and wants to try to do therapy. Pain: not rated OBJECTIVE: Start time: 1030 Total Therapy Minutes: 30 minute(s) Interventions completed today: Vital Signs: Vitals: 03/22/20 1033 BP: 124/82 BP Cuff Location: Right arm BP Patient Position: Sitting Pulse: 84 ] Gait Training: ?? Ambulation for endurance training without device. 350' with close supervision. One lateral loss of balance after standing up that pt was able to self correct with hip strategy. x3 reps with seatedrests between, cuing for arm swing and scanning Therapeutic Exercise: ?? NuStep level 4 x 10 minutes Patient semi-fowlers in bed with bed alarm on, setting 2. Call miranda and tray table in reach. 2nd Session Time: Start time: 1429 Total Therapy Minutes: 30 minutes Interventions completed today: Vital Signs: Vitals: 03/22/20 1430 03/22/20 1500 BP: 126/82 130/80 BP Cuff Location: Right arm Right arm BP Patient Position: Sitting Sitting Pulse: 86 94 ] Gait Training: ?? Ambulation without device to increase physical endurance with close supervision. 350' x 3 Neuromuscular Re-education: 40' x 4 each with seated rests between ?? Backward walking ?? Toe walking ?? Heel walking ?? Cross over stepping ?? Side stepping with mini squats Patient/Family Education: Topic: Deep breathing, recover process Learner: patient Method: verbal Barriers to Learning: none noted Outcome: verbalized understanding ASSESSMENT: Ynes presents with improved activity tolerance for ambulation without an assistive device. She continues to demonstrate occasional losses of stability however is able to correct them with balance strategies. Pt continues to become overwhelmed at times when multiple noises are around her limiting her ability to participate in activities in the gym. PLAN: ?? Walking endurance ?? Functional strength training: stairs ?? Progressive leg strengthening ?? Balance Contact information: Pager: [phone] Aida Goodman DPT, CLT 03/22/2020 11:48 * Oliva Martinez, CCC-ANESTHESIOLOGY PHYSICIAN ASSISTANT - 03/22/2020 1111 EDT Speech-Language Pathology Daily and Current Progress Note ANESTHESIOLOGY PHYSICIAN ASSISTANT Diagnosis: Aphasia Medical Diagnosis: Cerebral venous thrombosis and resultant intraparenchymal hemorrhage in the leftfrontotemporal area Date of Onset: 02/14/20 Date of Referral: 03/02/20 Subjective/Objective SUBJECTIVE: Session 1: My better is specializing to my eneric to my stomach. I'm like, I don't remember you but everyone knows I'm in the [facility]. It's weird not saying it. I get so pissed when I can't pronounce it. Session 2: I was going way to the [facility]. Oh we're gonna do your inspection in two days! And I like to hear that there will be someone here. Thank you for doing that. I feel so much better. It feels good to know. When people say it to me, I get it, but when I say it I'm like, 'what am I saying?' OBJECTIVE: Date of Service: 03/22/2020 Session One: Start Time: 1000 Total Therapy minutes: 30 minute(s) c/c tx Second Session: Start Time: 1130 Total Therapy minutes: 30 minute(s) c/c tx Current Treatment Objectives: Auditory Comprehension: Goal #1: Patient will identify objects in a visual field of 4-6 with >80% accuracy provided minimal cues from the clinician and repetitions for fewer than 50% of trials. 03/11: Session 2- Patient identifies objects in a visual field of 4 with 100% accuracy provided written word and auditory presentation of the word. Patient identifies objects in a visual field of 6 with 80% accuracy provided written word and auditory presentation of the word. Patient requires significant repetition of each item provided field of 6 and encouragement as she was hesitant to answer frequently stating that it made her nervous to have more than 4 items to choose from. 03/12: Session 2- Patient identifies objects in a visual field of 4 with 80% accuracy provided written word and auditory presentation of the word. 03/14: Session 1- Patient identifies objects in a visual field of 4 with 70% accuracy provided written word and auditory presentation of the word. 03/15: 2nd session: Object ID (f of 4) given label and function: 88% accuracy 1. 15 6. 15 2. 15 7. 8 3. 15 8. 13 4. 15 9. / 5. 15 10. / Object ID (f of 4) given label ONLY: 50% accuracy 1. 13 6. 6 2. 15 7. 6 3. 6 8. 6 4. 13 9. 15 5. 13 10. 6 03/16: Session 1- Patient identifies objects in a visual field of 4 with 80% accuracy provided written word and auditory presentation of the word. Patient requires repetition of ~50% of items providedfield of 4. 03/17: Session 1- Patient identifies objects in a visual field of 6 with 80% accuracy provided written word and auditory presentation of the word. Patient requires repetition of ~25% of items providedfield of 4 03/21: Patient identifies object in a visual field of 6 with 70% accuracy given intermittent repetition. Patient consistently exhibited difficulty identifying helmet, but was able to with gestural support. 03/22: Session 2- Patient identifies objects in a visual field of 6 with 100% accuracy provided written word and auditory presentation of the word. Goal #2: Patient will answer simple yes/no questions immediately after review with >70% accuracyprovided moderate cues for attention and initiation. 03/07: Session 1: Patient responded to Y/N questions with jargon and some intelligible word related to questions (e.g., It was my father's name in response to Is your last name 'Cindy?'). 03/08: Session 1- Patient responds to simple Y/N questions with 30% accuracy. Errorless learning wasattempted with mixed success. 1. 6- Error: Inaccurate attempt at the task item 2. 6- Error: Inaccurate attempt at the task item 3. 6- Error: Inaccurate attempt at the task item 4. 9- Repeated: Accurate, after instructions are repeated (errorless learning utilized) 5. 6- Error: Inaccurate attempt at the task item (errorless learning attempted) 6. 9- Repeated: Accurate, after instructions are repeated (errorless learning utilized) 7. 6- Error: Inaccurate attempt at the task item (errorless learning attempted) 8. 6- Error: Inaccurate attempt at the task item (errorless learning attempted) 9. 9- Repeated: Accurate, after instructions are repeated (errorless learning utilized) 10. 6- Error: Inaccurate attempt at the task item 4/15: Session 1- Patient responds to simple Y/N questions with 60% accuracy. Today patient benefitsfrom written yes/no board and gestures for prompting. 1. 6- Error: Inaccurate attempt at the task item; 9- repeated 2. 9- Repeated: Accurate, after instructions are repeated 3. 15- Complete: accurate, responsive, complete, prompt, efficient 4. 6- Error: Inaccurate attempt at the task item 5. 13- Complete-delayed: Accurate, responsive, complete or complex, delayed 6. 15- Complete: accurate, responsive, complete, prompt, efficient 7. 13- Complete-delayed: Accurate, responsive, complete or complex, delayed 8. 13- Complete-delayed: Accurate, responsive, complete or complex, delayed 9. 13- Complete-delayed: Accurate, responsive, complete or complex, delayed 10. 6- Error: Inaccurate attempt at the task item 4/16: Session 1- Patient responds to simple Y/N questions with 20% accuracy. Today patient benefitsfrom written yes/no board and gestures for prompting. 1. 6- Error: Inaccurate attempt at the task item 2. 6- Error: Inaccurate attempt at the task item 3. 8- Cued: Accurate, after cue is given 4. 15- Complete: accurate, responsive, complete, prompt, efficient 5. 6- Error: Inaccurate attempt at the task item 6. 6- Error: Inaccurate attempt at the task item 7. 6- Error: Inaccurate attempt at the task item 8. 15- Complete: accurate, responsive, complete, prompt, efficient 9. 6- Error: Inaccurate attempt at the task item 10. 6- Error: Inaccurate attempt at the task item 4/17: Session 1- Patient responds to simple Y/N questions with 50% accuracy. Today patient benefitsfrom written yes/no board and gestures for prompting. 1. 9- Repeated: Accurate, after instructions are repeated 2. 15- Complete: accurate, responsive, complete, prompt, efficient 3. 15- Complete: accurate, responsive, complete, prompt, efficient 4. 6- Error: Inaccurate attempt at the task item 5. 8- Cued: Accurate, after cue is given 6. 6- Error: Inaccurate attempt at the task item 7. 6- Error: Inaccurate attempt at the task item 8. 15- Complete: accurate, responsive, complete, prompt, efficient 9. 6- Error: Inaccurate attempt at the task item 10. 15- Complete: accurate, responsive, complete, prompt, efficient 03/12: Session 2- Patient responds to simple Y/N questions with 60% accuracy with credit given for answers that were correct following a delay or repetition of the stimulus. Today patient benefits from written yes/no board and gestures for prompting. 1. 13- Complete-delayed: Accurate, responsive, complete or complex, delayed 2. 6- Error: Inaccurate attempt at the task item 3. 9- Repeated: Accurate, after instructions are repeated 4. 15- Complete: accurate, responsive, complete, prompt, efficient 5. 13- Complete-delayed: Accurate, responsive, complete or complex, delayed 6. 6- Error: Inaccurate attempt at the task item 7. 6- Error: Inaccurate attempt at the task item 8. 15- Complete: accurate, responsive, complete, prompt, efficient 9. 6- Error: Inaccurate attempt at the task item 10. 15- Complete: accurate, responsive, complete, prompt, efficient 03/14: Session 2- Patient responds to simple Y/N questions with 60% accuracy with credit given for answers that were correct following a delay or repetition of the stimulus. Today patient benefits from written yes/no board and gestures for prompting. 1. 6- Error: Inaccurate attempt at the task item 2. 15- Complete: accurate, responsive, complete, prompt, efficient 3. 6- Error: Inaccurate attempt at the task item 4. 13- Complete-delayed: Accurate, responsive, complete or complex, delayed 5. 2- Attention: No response, but patient attends to the guido 6. 13- Complete-delayed: Accurate, responsive, complete or complex, delayed 7. 15- Complete: accurate, responsive, complete, prompt, efficient 8. 10- Corrected: Accurate, self-corrected 9. 15- Complete: accurate, responsive, complete, prompt, efficient 10. 15- Complete: accurate, responsive, complete, prompt, efficient 03/16: Session 1 - Patient responds to simple Y/N questions with 80% accuracy with credit given for answers that were correct following a delay or repetition of the stimulus. Today patient benefits from written yes/no board and gestures for prompting. 1. 9- Repeated: Accurate, after instructions are repeated 2. 13- Complete-delayed: Accurate, responsive, complete or complex, delayed 3. 13- Complete-delayed: Accurate, responsive, complete or complex, delayed 4. 6- Error: Inaccurate attempt at the task item 5. 13- Complete-delayed: Accurate, responsive, complete or complex, delayed 6. 15- Complete: accurate, responsive, complete, prompt, efficient 7. 15- Complete: accurate, responsive, complete, prompt, efficient 8. 10- Corrected: Accurate, self-corrected 9. 15- Complete: accurate, responsive, complete, prompt, efficient 10. 15- Complete: accurate, responsive, complete, prompt, efficient 03/17: Session 1 - Patient responds to simple Y/N questions with 80% accuracy with credit given for answers that were correct following a delay or repetition of the stimulus. Today patient benefits from written yes/no board and gestures for prompting. 1. 9- Repeated: Accurate, after instructions are repeated 2. 6- Error: Inaccurate attempt at the task item 3. 15- Complete: accurate, responsive, complete, prompt, efficient 4. 9- Repeated: Accurate, after instructions are repeated 5. 13- Complete-delayed: Accurate, responsive, complete or complex, delayed 6. 13- Complete-delayed: Accurate, responsive, complete or complex, delayed 7. 13- Complete-delayed: Accurate, responsive, complete or complex, delayed 8. 13- Complete-delayed: Accurate, responsive, complete or complex, delayed 9. 13- Complete-delayed: Accurate, responsive, complete or complex, delayed 10. 6- Error: Inaccurate attempt at the task item 03/19: Session 1: Simple non contextual yes/no questions 7/10 at 70% (Is glue sticky? Are fires cold?) 03/21: Patient answers simple contextual Y/N questions (e.g., Is this a computer? Is it snowing?) with 70% accuracy given gestural supports and repetition of 8/10 questions presented. 03/22: Session 2- Simple non contextual yes/no questions 70% accuracy 1. 13- Complete-delayed: Accurate, responsive, complete or complex, delayed 2. 15- Complete: accurate, responsive, complete, prompt, efficient 3. 13- Complete-delayed: Accurate, responsive, complete or complex, delayed 4. 6- Error: Inaccurate attempt at the task item 5. 6- Error: Inaccurate attempt at the task item 6. 15- Complete: accurate, responsive, complete, prompt, efficient 7. 15- Complete: accurate, responsive, complete, prompt, efficient 8. 9- Repeated: Accurate, after instructions are repeated 9. 6- Error: Inaccurate attempt at the task item 10. 13- Complete-delayed: Accurate, responsive, complete or complex, delayed Goal #3: Patient will follow simple 1-step commands related to functional environment with >70% accuracy provided moderate verbal/tactile/visual cues in order to increase functional integration into environment. 415: Session 2- Patient follows simple 1-step commands related to environment with 0% accuracy independently. Accuracy increases to 90% accuracy following a model by the clinician with slowed auditory presentation of directions. 03/10: Session 1- Patient follows simple 1-step commands related to environment with 0% accuracy independently. Accuracy increases to 90% accuracy following a model by the clinician with slowed auditory presentation of directions. 03/12: Session 1- Patient follows simple 1-step commands related to environment with 0% accuracy independently. Accuracy increases to 62% accuracy following a model by the clinician with slowed auditory presentation of directions. 03/14: Session 2- Patient follows simple 1-step commands related to environment with 100% accuracy following a model by the clinician with slowed auditory presentation of directions. 03/15: / session: Patient followed 1 step commands in the context of therapy tasks today giveninitial demonstration. 03/16: Session 2- Patient follows simple 1-step commands related to environment with 90% accuracy following a model by the clinician with slowed auditory presentation of directions. 03/17: Session 1- Patient follows simple 1-step commands related to environment with 100% accuracy following a model by the clinician with slowed auditory presentation of directions. Patient completed1 of the commands independently without a model from the clinician today. 03/18: Session 1: Followed 2/10 simple 1 step commands independently. Patient followed ANESTHESIOLOGY PHYSICIAN ASSISTANT model with 100% accuracy. 03/19: Session 1: Followed 4/10 simple one step commands independently. Followed ANESTHESIOLOGY PHYSICIAN ASSISTANT model with 90% accuracy (blow a kiss, look out the window, big smile) 03/21: Followed 6/6 simple one-step commands given clinical model. Upon delayed repetition of the same commands, patient followed 3/6 simple one-step commands given additional repetition. 03/22: Session 1- Patient independently follows 1-step directions with 20% accuracy. Accuracy improves to 90% following a model by the clinician. Expressive Language: Goal #1: Patient will recite automatic speech tasks given moderate cues with >70% accuracy. 03/08: Session 1- Patient recites automatic speech tasks with the clinician. See results below: 1-10: 100% accuracy following a model The Alphabet: Unable to perform in unison Months of the Years: Attempted to have patient repeat each month after the clinician: November, December, (jargon), (jargon), , June, April medication, June compation, sincation medication,efraingus, French, lessludygus Musa, Liliana 03/09: Session 1- Patient recites automatic speech tasks with the clinician. See results below: 1-10: 100% accuracy following a starter cue one... The Alphabet: T1: A, me, S, d, 8, q, A, me, d, ec, q, g, h, eed, h ; T2: Patient was able to achieve 50% in unison with the clinician but eventually perseverated on w Days of the Week: Patient perseverated on w, k despite max cues, models, and attempts to perform in unison Session 2- Patient recites automatic speech tasks with the clinician. See results below: 1-10: 80% accuracy following a repetition of the instructions; 80% accuracy in trial 2 following a repetition of the instructions. The Alphabet: A, 7 you mean? following max cues and models Days of the Week: Patient perseverated on w, k despite max cues, models, and attempts to perform in unison 03/10: Session 1- Patient recites automatic speech tasks with the clinician. See results below: 1-10: 100% accuracy The Alphabet: a, q, q, jews, each, l, l, elf Days of the Week: w, q, w, q, w, q, l, q, l, q 03/12: Session 2- Patient recites automatic speech tasks with the clinician. See results below: 1-10: 90% accuracy The Alphabet: l, n, h, stomich, a, m, h, m, etch, is it etch? Days of the Week: elmen, elmen threemen, riley three hundred, h, h, eight? No, stomach 03/14: Session 2- Patient recites automatic speech tasks with the clinician. See results below: 1-10: 90% accuracy Days of the Week: feminal, lessons, lezimen... 03/16: Session 1- Patient recites automatic speech tasks with the clinician. See results below: 1-10: 0% accuracy Days of the Week: drama, bever, mener, sever... 03/17: Session 1- Patient recites automatic speech tasks with the clinician. See results below: 1-10: 100% accuracy Days of the Week: Saturday, Saturday, Wender, Thunder, Wender, Sender, Fender when repeating each day individually following a model by the clinician. 03/18: Session 1: Counting 1-10 Trial one: 04/03. Trial Two: 07/06 (Eight, Ninth, Tenth, Eleventh, Twelfth - Is that what you want? I got lost. 03/19: Session 1: Counting 1-10 at 90% accuracy, Days of the week - 03/01 03/21: Patient recites automatic sequences with the following accuracy: Counting 1-10: / (error: ten-hundred) Days of the week: 01/01 (perseveration on hundred e.g., nine one hundred). Following break and spontaneous production of Saturday: 05/31 03/22: Session 1- Days of the week: T1- 01/29 provided moderate visual and verbal cues; T2- 03/01provided moderate visualand verbal cues Goal #2: Patient will name objects (real or pictured) to confrontation with >50% accuracy provided maximum verbal cues. Probe: naming an object from a fo2 multiple choice- 20% accuracy (patient struggling with repeatingthe words, producing neologisms or paraphasias) 03/15: 2nd session: Repeating name of pictured object (in spontaneous context) in the context of a written expression task: ~50% accuracy (with partial credit for spelling a word out loud accurately!) 1. 6 2. 6 3. 15 4. 15 5. 8* * spelled the word out loud correctly! 03/16: Session 1- Patient names real pictured objects to confrontation provided maximum cues (phonemic, semantic, cloze, repetition, etc.) with 0% accuracy. Target Response 1. Earth derb (max cues) 2. door dargis (max cues) 3. pants stargus (max cues) 4. boxing dargus (max cues) 5. taco targus (max cues) 03/19: Session 1: Confrontation naming of everyday color photographs 0/10 however it was noted that patient began using gestures independently with photos in 6/ pictures (gestured hat, phone, wells, wrist watch, scissors and egg) Patient stated, I never do that before, it's fun! New Goal written. 03/21: Patient named objects in 0/5 trials due to perseveration on Stomach/Sunnik. Patient repeated names as detailed below. 03/22: Session 2- Patient names real pictured objects to confrontation provided maximum cues (phonemic, semantic, cloze, repetition, etc.) with 20% accuracy. Target Response 1. apple Basket, but its... Bicycle 2. hat askit 3. tennis Not bene, sineck 4. pillow wash 5. hand That's a nasgul. 6. horse mushick 7. helmet bicycle 8. paper hanger Oh that's um... mailed 9. stomach stomach 10. squirrel Squirrel (phonemic cue provided) Goal #3: Patient will repeat 1-2 syllable functional words with >70% accuracy provided a visual model by the clinician. 03/09: Session 2- Patient repeats 1-2 syllable functional words with 10% accuracy provided a visual model by the clinician. For 60% of trials patient produced neologisms and for 30% of trials patient produced phonemic paraphasias. See results below: 2. 6- Error: Inaccurate attempt at the task item; neologism 3. 6- Error: Inaccurate attempt at the task item; neologism 4. 15- Complete: accurate, responsive, complete, prompt, efficient 5. 14- Distorted: accurate, responsive, complete or complex, prompt, distorted; phonemic paraphasia 6. 6- Error: Inaccurate attempt at the task item; neologism 7. 6- Error: Inaccurate attempt at the task item; neologism 8. 14- Distorted: accurate, responsive, complete or complex, prompt, distorted; phonemic paraphasia 9. 14- Distorted: accurate, responsive, complete or complex, prompt, distorted; phonemic paraphasia 10. 6- Error: Inaccurate attempt at the task item; neologism 03/10: Session 1- Patient repeats 1-2 syllable functional words with 30% accuracy provided a visual model by the clinician. For 70% of trials patient produced neologisms. See results below: 1. 8- Cued: Accurate, after cue is given; neologism for first few trials; required tactile and visual cues 2. 15- Complete: accurate, responsive, complete, prompt, efficient 3. 6- Error: Inaccurate attempt at the task item; neologism 4. 6- Error: Inaccurate attempt at the task item; neologism 5. 15- Complete: accurate, responsive, complete, prompt, efficient 6. 15- Complete: accurate, responsive, complete, prompt, efficient 7. 6- Error: Inaccurate attempt at the task item; neologism 8. 6- Error: Inaccurate attempt at the task item; neologism 9. 6- Error: Inaccurate attempt at the task item; neologism 10. 6- Error: Inaccurate attempt at the task item; neologism Session 2- Patient repeats 1-2 syllable functional words with 30% accuracy provided a visual model by the clinician. For 70% of trials patient produced neologisms. 03/11: Session 1- Patient repeats 1-2 syllable functional words with 0% accuracy provided a visual model by the clinician. See results below: Target Response 1. socks stomach 2. chair Stomach mesausen 3. finger megas megasarus 4. baby Lady mesasus 5. helmet helmamarier 6. Earth siroath 7. mandaen churchtons 8. pepper lymins 9. shorts short hundreds 10. sink Saint desaingin; sank; sank 03/12: Session 1- Patient repeats 1-2 syllable functional words with 50% accuracy provided a visual model by the clinician. See results below: Target Response Error Type 1. teeth clun neologism 2. golf nogolsh neologism 3. crown clanin neologism 4. rice rice - 5. money money - 6. horse horse - 7. doctor Stomach menesis Perseveration + neologism 8. legs Leg? that's it? leg - 9. wallet walwalleck Phonemic paraphasia 10. pizza pizza. I know that. - 03/14: Session 1- Patient repeats 1-2 syllable functional words with 30% accuracy provided a visual model by the clinician. Errors were typically phonemic paraphasias with the occasional neologism. See results below: Target Response Error Type 1. onion umion Phonemic paraphasia 2. chair air Phonemic paraphasia 3. zipper zipper - 4. chest shate neologism 5. boxing dockwis neologism 6. soldier soulmir Phonemic paraphasia 7. saw sawmich Neologism + perseveration 8. kitchen kitchen - 9. corn corn - 10. vacuum vactum Phonemic paraphasia Session 2- Patient repeats 1-2 syllable functional words with 10% accuracy provided a visual model by the clinician. Errors were typically phonemic paraphasias with the occasional neologism. See results below: Target Response Error Type 1. hat s- um, hat - 2. salad holad Phonemic paraphasia 3. chair Stomach attic Neologism + perseveration 4. bird Stomach umanick Neologism + perseveration 5. money kathya attic Phonemic paraphasia + neologism 6. hand hammock Phonemic paraphasia 7. rice dammish neologism 8. pool amicus neologism 9. glasses dimanick neologism 10. watch gamican neologism level Probe: Repeating functional phrases Target Response 1. Hi. Hi. 2. How are you? How are yule? 3. My name is Ynes. My name spill it. 4. I need help. I need united something. 5. I'm hungry. [facility] under. 03/15: 1st session: Repeating of single words in the context of reading comprehension task today: 01/06, 17% accuracy, patient demonstrated poor awareness of her errors. Cloze cues were successful at eliciting target word on two instances, however this is not consistently successful 03/16: Session 1- Patient repeats 1-2 syllable functional words with 50% accuracy provided a visual model by the clinician. Errors were typically phonemic paraphasias. See results below: Target Response Error Type 1. bee bee - 2. doctor doctor - 3. beach beach - 4. level lever phonemic paraphasia 5. hand hand - 6. lamp ganter neologism 7. glove glug phonemic paraphasia 8. helmet helment phonemic paraphasia 9. coffee cofter phonemic paraphasia 10. baby baby - Probe: Repeating functional phrases Target Response 1. Hi. My. 2. How are you? Why are you? 3. My name is Ynes. My eater... (jargon) 4. I need help. I need kayla. 5. I'm hungry. I'm mentor. 6. I'm thirsty. My ever. 7. I need to use the toilet. (jargon) Session 2- Patient repeats 1-2 syllable functional words with 40% accuracy provided a visual model by the clinician. Errors were typically phonemic paraphasias and occasionally neologisms. See results below: Target Response Error Type 1. whale carlosston neologism 2. house hout Phonemic paraphasia 3. bed den Phonemic paraphasia 4. dress gama Phonemic paraphasia 5. onion onion - 6. money many Phonemic paraphasia 7. road road - 8. football whipnar neologism 9. shoulder shoulder - 10. nurse nurse - 03/17: Session 1- Patient repeats 1-2 syllable functional words with 80% accuracy provided a visual model by the clinician, with credit provided for items that were accurate following multiple trials.Errors were typically phonemic paraphasias. See results below: Target Response Error Type 1. ball ball - 2. sheep Sheet, sheet, sheep Phonemic paraphasia x2 3. stomach stomach - 4. bus bent, but, bus Phonemic paraphasia x2 5. french professor french professor - 6. towels dowel, towels Phonemic paraphasia x1 7. peas teas, teas, tears Phonemic paraphasia x3 8. zipper Zippernight, ,zipper, zipper Phonemic paraphasia x1 9. soccer soccer - 10. crab Cow, crite, choirs Phonemic paraphasia x3 Probe: Repeating functional phrases Target Response 1. Hi. Hi. 2. How are you? T1: Hi owe tour? T2: Hi owe tart? 3. My name is Ynes. T1: My nert T2: Nines ert. 4. I need help. T1: My niners apartments. T2: My nine apartments. 5. I'm hungry. T1: Mine a none-is. T2: Mine dunion. 6. I'm thirsty. T1: Mine abundon. 7. I need to use the toilet. T1: I need abindon melinder. 03/21: Patient repeats 1-2 syllable functional words with 75% accuracy provided a visual model by clinician. Activity discontinued due to perseveration on jargon sunnik and inability to follow further models. Results as follows: Target Response Error Type 1. glasses Glasses - 2. Phone Foam, phone, phone Phonemic paraphasia x1 4. tissue Tissue, tissue - 5. pencil Tensik, tensik Phonemic paraphasia x4 03/22: Session 1- Patient repeats 1-2 syllable functional words with 60% accuracy provided a visual model by the clinician, with credit provided for items that were accurate following multiple trials.Errors were typically phonemic paraphasias. See results below: Target Response Error Type 1. hand Stomach; hand Semantic paraphasia x1 2. fence Hent; fent Phonemic paraphasia x2 3. lizard lizard - 4. ice ice - 5. dress dress - 6. customer quality specialist customer quality specialist - 7. playground Playdown; playdumb Phonemic paraphasia x2 8. soccer socter Phonemic paraphasia 9. ear ear - 10. iron Iron; I-erd -; phonemic paraphasia Session 2- Patient repeats 1-2 syllable functional words with 50% accuracy provided a visual model by the clinician, with credit provided for items that were accurate following multiple trials. Errors were typically phonemic paraphasias. See results below: Target Response Error Type 1. kitchen kitchen - 2. candle candle - 3. pizza Veetza; pizza Phonemic paraphasia x1 4. skirt Skanicks; skins Phonemic paraphasia x2 5. hockey Hackhair; hockey Phonemic paraphasia x1 6. office cashier office cashier - 7. door Handstop; guilherme, no...; handoor, door Neologisms & paraphasias 8. salad salad - 9. floor Birch Phonemic paraphasia 10. waist waist - Probe: Repeating functional phrases Target Response 1. Hi. Hide. Hide. Hi. 2. How are you? How are your? 3. My name is Ynes. My nor, name, nor, my name is doored. 4. I need help. (jargon) 5. I'm hungry. A door Reading Comprehension: Goal #1: The patient will identify the written word in a field of 2, given an auditory model with 80% accuracy. 03/11: Session 2- Patient identifies written words in a field of 2, given an auditory model with 81%accuracy. 03/12: Session 2- Patient identifies written words in a field of 2, given an auditory model with 50%accuracy. 03/16: Session 2- Patient identifies written words in a field of 2, given an auditory model with 67%accuracy. 03/18: Session 1: Patient identified written words in a field of 2 (presented vertically) with 60% accuracy ([employer] word cards). 03/22: Session 1- Patient identified written words in a field of 2 (presented vertically) with 100% accuracy. Goal #2: The patient will identify the written word to match a given object or picture with 80% accuracy in a field of 3 (presented in a vertical orientation). 03/12: Session 1- Patient identifies the written word from a field of 3, given a picture of an object, with 53% accuracy. 03/14: Session 2- Attempted but could not complete d/t patient complaining of not being able to see stimuli d/t them being blurry. 03/15: 1st session: Patient was given a pictured object/item and then presented with three words, written by clinician in a vertical presentation and held upright for her viewing. She then used the picture to 'underline' the matching written word. She independently manipulated the picture to aid hervision. Word to picture match (f of 2 words), presented vertically: 100% accuracy 1. 13 6. 13 2. 15 7. / 3. 13 8. / 4. 15 9. / 5. 13 10. / Word to picture match (f of 3 words), presented vertically: 83% accuracy 1. 6 6. 15 2. 13 7. / 3. 15 8. / 4. 13 9. / 5. 15 10. / 03/16: Session 2- Probe: Patient identifies written 2-3 word phrases from a field of 2, given a picture of an object with 50% accuracy. 03/18: Session 1: Word to picture (field of 3 words), presented vertically: 07/04 at 80% Written Expression: Goal #1: The patient will write functional words and short phrases related to personal information (e.g., name, address, date of ) with 90% accuracy given mod verbal/visual cues. 03/09: Session 2- Patient writes functional words and short phrases related to personal information.See results below: Name: 100% accuracy Address: Patient does not provide street number, street name, or apartment number. She did write inapartment number once clinician wrote in the street number and street name. She got 100% accuracy for city and state. Phone Number: 100% accuracy Occupation: Unable to complete. 03/12: Session 1- Patient writes functional words and short phrases related to personal information.See results below: Name: 100% accuracy Address: 100% accuracy following a self-correction Phone Number: 100% accuracy Occupation: 100% accuracy following request for clarification and mod cues from the clinician 03/15: session: Patient copied her first and last name accurately and independently. Probe: Patient presented with a pictured object/item and provided it's label verbally. She was asked to write the name of the object/item. Initial perseveration on the letter of her first name, however she recognized this error and accurately self corrected to write the first 2 letters of the word 'dog' (accurate for picture). Given two written foils of the accurate spelling, she quickly and accurately identified the correct spelling (and did so with 100% accuracy subsequently). Trials were continued: 1. 12/MC 2. 12/MC 3. 8/MC 4. 15* 5. 12 given initial letter 12 = partially correct spelling which most often included initial 2 letters of the word being written accurately MC = successful identification of the spelling given multiple choice *spelled aloud accurately, otherwise spelling aloud characterized by jargon letters Augmentative Communication Goal #1: The patient will generate gestures representing basic needs with 80% accuracy in response to auditory or visual instruction. 03/19 Session 1: Patient generated gestures independently with photos in 6/10 pictures with 60% accuracy (hat, phone, wells, wrist watch, scissors and egg). 03/22: Session 2- Patient generated gestured independently with photo description task to augment communication effectively with ~75% effectiveness. PATIENT/FAMILY EDUCATION: Patient/Family Education: Patient/family education was provided today including: rehab goals and questions were addressed. Topic: Patient/Family education and training was completed today including: the role of Speech-Language Pathology aphasia perseveration questions were addressed Learner: patient Method of Education: Verbal Barriers to Learning/Education: fatigue, headache pain, and presence of language impairment Patient: needs further instruction and education Family: No family present. Patient/Family Goals: Patient states I want to get better. Team Communication: Conversation with patient's OT who is suspecting a right homonymous hemianopsia ?? Assessment /CLINICAL IMPRESSIONS: Ynes White is a female 50 y.o. 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 It should be noted that patient went to [facility] for head CT and abdominal/ pelvis CT secondary to severe headaches and stomach ache on 03/18. Today, Ynes demonstrates continued steady improvements in auditory comprehension and expressive language skills. She demonstrates improvements in auditory comprehension at the single word level provided a fo6 choices. She also demonstrates significantly improved repetition skills. She is augmenting her com munication with gestures and this is judged to be effective ~75% of the time by this familiar communication partner. She continues to rely on significant gestural supports and models to follow simpledirections and answer yes/no questions. Ynes remains appropriate for 30 min BID sessions for aphasia intervention based on her level of fatigue and headache pain. Ynes White currently presents with severe expressive and receptive aphasia, most consistent with Wernicke's type but with some deviation from typical Wernicke's type presentation. Patient appears to be able to follow some basic 1-step commands effectively provided context, models, slow auditory presentation of information, and tactile cues as needed. Repetition, object naming, word fluency,sentence completion, and responsive speech are all impaired. Ynes demonstrates a favorable response to use of gestures to assist with her auditory comprehension. Expressive language is characterized as fluent but mostly consists of word salad with many instances of jargon, neologisms, and paraphasias with occasional moments of intelligible discourse scattered throughout. Ynes's discourse could also be described as tangential and perseverative. She attempts to utilize gestures to augmenther expressive language, but is not always successful. She is also demonstrating breakdowns in reading comprehension at the short sentence level and significant deficits in written expression at the word level, compounded by impaired auditory comprehension preventing writing to dictation and impaired naming preventing written naming. These deficits impact the patient's ability to functionally comm unicate her wants, needs, and ideas and hold conversation. She presents with severe impairments in reading comprehension, however, she demonstrates some success with reading comprehension at the wordlevel, which appears to be a relative strength compared to her auditory comprehension. She exhibits significant breakdown in reading comprehension at the short sentence level. Ynes also demonstrates significant deficits in written expression at the single word level however this appears to be improving and her awareness of these errors appears better than her awareness of errors in verbal expression. She also demonstrates relative strength in copying words and sentences, as well as writing numbers. It has been determined that the patient demonstrates deficits that impact functioning in daily activities and hinder participation in life situations.??Patient currently requires assistance from others to communicate basic wants and needs and direct her medical care. Pt will continue to benefit from her needs being anticipated and simplified information presented to her. Information should be repeated and said in different ways, and augmented with pictures and gestures. The patient is demonstrating strengths in motivation and some intact basic expressive language skills which should be utilized during the patient's plan of care to maximize gains. Contextual factors that may impact the patient's ability to progress toward rehab goals include: severity of language impairment, need for physical assistance, tolerance level for therapy, and pain. Based on patient's tolerance level, it is recommended that patient participate in 30 minute BID sessions initially and build toward 60 minute sessions as tolerated. Given patient's age, independence prior to admission, and social/occupational demands, she would benefit from intensive ANESTHESIOLOGY PHYSICIAN ASSISTANT intervention. Based on the patient's rehab potential, motivation, prior level of function, and the contextual factors, the patient's prognosis is considered good. It is anticip ated that the patient will make functional gains in expressive and receptive language skills with intensive skilled 1:1 speech language pathology services in the inpatient rehabilitation setting. Functional Communication Measures ([place] [employer], 2002). The Functional Communication Measures (FCM???s) are a series of 7 point rating scales, ranging fromleast functional (Level 1) to most functional (Level 7). They have been developed by [employer] to describe different aspects of patient???s functional communication and swallowing abilities over the course of ANESTHESIOLOGY PHYSICIAN ASSISTANT intervention. ?? Spoken Language Comprehension Level 2: With consistent, maximal cues, the individual is able to follow simple directions, respond to simple yes/no questions in context, and respond to simple words orphrases related to personal needs. Spoken Language Expression Level 3: The communication partner must assume responsibility for structuring the communication exchange, and with consistent and moderate cueing, the individual can produce words and phrases that are appropriate and meaningful in context. Reading Level 3: The individual reads single letters and common words, and with consistent moderatecueing, can read some words that are less familiar, longer, and more complex. Writing Level 2: The individual writes single letters and common words with consistent maximal cueing. ?? GOALS: Snf Goals: Projected Functional Communication Measures at discharge: Spoken Language Comprehension Level 4: Individual consistently responds accurately to simple yes/noquestions and occasionally follows simple directions without cues. Moderate contextual support is usually needed to understand complex sentences/messages. The individual is able to understand limited conversations about routine daily activities with familiar communication partners. Spoken Language Expression Level 4: The individual is successfully able to initiate communication using spoken language in simple, structured conversations in routine daily activities with familiar communication partners. The individual usually requires moderate cueing, but is able to demonstrate use of simple sentences (i.e., semantics, syntax, and morphology) and rarely uses complex sentences/messages. Reading Level 4: The individual reads words and phrases related to routine daily activities, and words that are less familiar, longer, and more complex. The individual usually requires moderate cueing to read sentences of approximately 5-7 words. Writing Level 3: The individual writes single letters and common words, and with consistent moderate cueing, can write some words that are less familiar, longer, and more complex. Short Term Goals: Auditory Comprehension: Goal #1: Patient will identify objects in a visual field of 4-6 with >80% accuracy provided minimal cues from the clinician and repetitions for fewer than 50% of trials. Goal #2: Patient will answer simple yes/no questions immediately after review with >70% accuracyprovided moderate cues for attention and initiation. Goal #3: Patient will follow simple 1-step commands related to functional environment with >70% accuracy provided moderate verbal/tactile/visual cues in order to increase functional integration into environment. ?? Expressive Language: Goal #1: Patient will recite automatic speech tasks given moderate cues with >70% accuracy. Goal #2: Patient will name objects (real or pictured) to confrontation with >50% accuracy provided maximum verbal cues. Goal #3: Patient will repeat 1-2 syllable functional words with >70% accuracy provided a visual model by the clinician. ?? Reading Comprehension: Goal #1: The patient will identify the written word in a field of 2, given an auditory model with 80% accuracy. Goal #2: The patient will identify the written word to match a given object or picture with 80% accuracy in a field of 3 (presented in a vertical orientation). Written Expression: Goal #1: The patient will write functional words and short phrases related to personal information (e.g., name, address, date of ) with 90% accuracy given mod verbal/visual cues. Augmentative Communication Goal #1: The patient will generate gestures representing basic needs with 80% accuracy in response to auditory or visual instruction. ?? Plan RECOMMENDATIONS: Patient will continue to benefit for further ANESTHESIOLOGY PHYSICIAN ASSISTANT intervention in this setting to address aphasia management and intervention needs. ?? Recommend inpatient rehabilitation ANESTHESIOLOGY PHYSICIAN ASSISTANT services: Patient will be seen for a minimum of 5x/week @ 30minutes BID due to current tolerance level. ?? Communication Access and Shared Decision Making Recommendations Please support communication access and shared decision making ability by doing the following: ?? Support Comprehension: ?? Have a pen and paper ready when communicating. ?? Please present information slowly and simplify. Augment with drawings, diagrams, gestures and pointing. ?? Ask one question at a time. ?? Have only one person speak at a time. ?? Environmental modifications:? Simplify the environment: ?? Carryover/Discharge??and Healthcare Decision making considerations ?? Will need family support for the successful carryover of discharge recommendations. ?? Currently comprehension of non-contextual information is a barrier Oliva Martinez MS CCC-ANESTHESIOLOGY PHYSICIAN ASSISTANT, MS, CCC-ANESTHESIOLOGY PHYSICIAN ASSISTANT 03/22/2020 16:56 * Eleazar Ponce - 03/22/2020 0708 EDT [facility] Rehabilitation Therapy Inpatient Rehabilitation [facility] Occupational Therapy Encounter Note Date of Service: 03/22/2020 Subjective/Objective Subjective I start out feeling blah, but once I get moving I'm okay Objective First session Start time: 0930 Total Therapy Minutes: 30 minute(s) Interventions included: Self-Care/Home Management - Focus of session on progressing safety and independence with basic morning routine in preparationfor performing at home. ?? Clothing retrieval: Completed with min-contact A to close supervision with no device. Patient appropriately selected clothing for day without cueing. ?? Sponge bath: Completed standing at sink with min-contact A. 1x seated rest between washing UE and LE. No loss of balance noted. Therapist had to provide visual demo of how to pump soap dispenser, however once demonstrated patient demonstrated good carryover throughout session using twice more w/o cueing. ?? UE Dressing: Completed with SBA seated in chair ?? LE Dressing: Pt completed threading pants and underwear with supervision, standing for pant hikewith SBA. ?? Grooming: Completed standing at sink with min-contact A. Patient located toothbrush and toothpaste independently, both positioned on R side of sink. Second session Start Time: 1100 Total Minutes Treatment 2: 30 Interventions included: Self-Care/Home Management, Therapeutic Activities Self-care/ Home management - Patient completed ambulatory laundry activity this visit. Focus of activity on improving functional activity tolerance and balance, safety with functional mobility, and sequencing of a familiar task that the patient was completing independently prior to injury. ?? Patient ambulated from room to laundry room with min-contact A ?? Completed removing clothing from washer and placing in dryer, and then re- loading washer with min-contact A ?? Patient added washing detergent appropriately, and was able to select size of load, temperature,and turn on without cueing Therapeutic Activities - Patient completed pipe-tree activity at table top in therapy gym. Focus of activity on visual scanning, problem solving, and sequencing. ?? Patient copied figure 1 and 2 from pipe tree hand out. Figure 1 completed without errors and no cues required. Figure 2 patient required 2x verbal cues for identifying missing piece on R visual field. Patient describing visual field cut while completing, however difficult to discern details d/t aphasia. With cues to turn head patient reporting ability to see full design and completed without error. *Ambulation room > therapy gym with min-contact A with no AD. No loss of balance noted. Vital signs: Vital signs have been stable with interventions and were not monitored. Patient/Family Education: Topic: Energy conservation throughout self-care routine Learner: patient Method: verbal Barriers to Learning: cognitive deficits and language Outcome: verbalized understanding Team Communication: With primary therapist re: patient status and plan of care. Assessment/Plan Assessment Ynes tolerated today's sessions well. Despite reporting some GI discomfort she was agreeable to participate in both sessions today. She was attempting to verbalize details re: a potential visual field cut which limited independent completion of pipe tree task in second session. This did not appear to be a barrier functionally throughout remainder of sessions today, and details limited by aphasia. Ongoing assessment/ monitoring of same warranted as able. Plan Continue per primary therapist plan of care; - Scanning tasks, right side specifically for safety with mobility - Self care routine, incorporate safety into routine - Mobility for self care - Sequencing and problem solving activities - communication for self care needs Pager: [phone] ELEAZAR PONCE OT, 03/22/2020, 7:08 * Maria Victoria Hernandez MD - 03/21/2020 1532 EDT MEDICINE FOLLOW-UP Date of service: 03/21/2020 PCP: Alejandrina Carrillo CHIEF COMPLAINT: Hypercoagulable state of unclear origin, cerebral venous thrombosis presenting as left frontal intraparenchymal hemorrhage, incidental PE in RUL and UE DVT, worsening hemorrhage in the setting of therapeutic anticoagulation SUBJECTIVE: Waxing and waning headache. Sounds like it was really bad yesterday am, to the point where she was writhing in pain. Today, she is doing pretty good - does better in the afternoons. Her language is still significantly impaired. Seen ambulating in the halls with PT this afternoon. No fevers, cough or dyspnea. LMWH level came back ok. OBJECTIVE: Patient Vitals for the past 48 hrs: BP Pulse Heart Rate Resp Temp SpO2 O2 Device 03/21/20 1500 124/90 90 -- -- -- -- -- 03/21/20 1430 108/80 84 -- -- -- -- -- 03/21/20 1033 112/72 86 -- -- -- -- -- 03/21/20 0712 127/76 79 -- 14 36 ??C (96.8 ??F) -- -- 03/20/20 0742 112/78 -- 94 BPM 16 36 ??C (96.8 ??F) 97 % -- 03/19/20 1555 107/69 -- 95 BPM -- 36.2 ??C (97.2 ??F) 99 % None Vital signs are stable and the patient is afebrile. Physical exam is stable No distress. Respirations even, unlabored. Motor/sensory exam stable. MEDICATIONS: aspirin chewable 81 mg oral DAILY enoxaparin 80 mg subcutaneous Q12H melatonin 3 mg oral QHS multivitamin 1 Tab oral DAILY pantoprazole 40 mg oral DAILY QUEtiapine 12.5 mg oral QHS acetaminophen 650 mg Q4H PRN bisacodyL 10 mg Q48H PRN calcium carbonate 1 Tab QID PRN docusate sodium 100 mg BID PRN guaiFENesin 200 mg Q6H PRN HYDROmorphone 2-4 mg Q4H PRN ondansetron 4 mg Q4H PRN papain-alpha amylase-cellulase 2-5 mL PRN senna 1 Tab BID PRN LABS: Last labs: Labs: I have personally reviewed CBC: Lab Results Component Value Date WBC 5.16 03/21/2020 RBC 3.71 (L) 03/21/2020 HGB 11.6 03/21/2020 HCT 34.4 (L) 03/21/2020 MCV 93 03/21/2020 MCH 31.3 03/21/2020 MCHC 33.7 03/21/2020 PLT 220 03/21/2020 NEUTROABS 2.93 03/18/2020 BMP: Lab Results Component Value Date NA 134 (L) 03/21/2020 K 5.2 (H) 03/21/2020 CL 100 03/21/2020 CO2 26 03/21/2020 BUN 34 (H) 03/18/2020 CREATININE 0.65 03/21/2020 CALCIUM 7.5 (L) 03/18/2020 MG 1.7 03/02/2020 PHOS 4.6 (H) 03/07/2020 LABALBU 2.6 (L) 03/18/2020 ASSESSMENT/PLAN: 1. 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 Suspect underlying hypercoagulable state. PT/OT/ANESTHESIOLOGY PHYSICIAN ASSISTANT Falls precautions Delirium prevention measures Aspiration precautions Dysphagia diet: 4 with thins LMWH level tomorrow 2. Hypercoagulable disorder NOS. Venous dural thrombosis, PE Enox dosing decreased to 80 bid based on LMWH levels LMWH level ok today, but was quite high late last week - recheck tomorrow after am dose Will need OP heme clinic 3. Hypertension - with hypotension last week resulting in MARSHALL Now off both metoprolol 25 bid + lisinopril 20 Please encourage her to continue to drink fluids with solute - things like milk, chocolate milk, ensure, boost, etc 4. Acute kidney injury - improved Please continue to monitor The patient is medically stable and tolerating the present level of the rehab program. The patient is to continue in the rehabilitation program. Maria Victoria Hernandez MD * Rohit Sterling, PT - 03/21/2020 1046 EDT [facility] Rehabilitation Therapy Inpatient Rehabilitation [facility] Physical Therapy Encounter Note Date of Service: 03/21/2020 , Activity: Level of risk of Harm B, Activity as tolerated, , Additional Precautions Information: LBone flap precautions (helmet OOB), R Rooke Boot in bed, PEG tube SUBJECTIVE: Reports feeling better this morning verses this weekend. Has a mild head ache and just took medication Pain: mild head head, not rated In afternoon reported an initial level of 8/10 whish was not improving with medication. Pain level reduced to 6/10 after the session where she reported it was significantly improved and under control. OBJECTIVE: Start time: 1030 Total Therapy Minutes: 30 minute(s) Interventions completed today: Vital Signs: Vitals: 03/21/20 1033 BP: 112/72 BP Cuff Location: Right arm BP Patient Position: Sitting Pulse: 86 ] Therapeutic exercise: ?? Ambulation for endurance training without device. 350' with supervision. Up/down 20 6 steps without rest using bilateral rails. ?? Ambulated 100' back to the room at the end of the session. Exercise Repetitions/sets Comment Sit to stand 10x3 Stable. Standing marching: alternated with bilateral heel raises 10x2 each Support of chair. Reported fatigue with need to rest after 2 sets Side stepping 20'x2 Min contact A for safety High stepping 20'x2 Moderate ankle/hip strategies with imbalance requiring min A for recovery. Min contact A for safety. Improved balance on 2nd set. Backward walking 20'x2 Min contact A for safety. Increased step height on 2nd set ?? Patient semi-fowlers in bed with bed alarm on, setting 2. Call miranda and tray table in reach. 2nd Session Time: Start time: 0 Total Therapy Minutes: 30 minutes Interventions completed today: Vital Signs: Vitals: 03/21/20 1430 03/21/20 1500 BP: 108/80 124/90 BP Cuff Location: Right arm Right arm BP Patient Position: Sitting Sitting Pulse: 84 90 ] Therapeutic exercise: ?? Ambulation without device to increase physical endurance. Initially required min contact A due to minor instability. Progressed to supervision. Total distance 1600'. ?? Patient semi-fowlers with bed alarm on setting 2 at the end of the session. Patient reported significant reduction in head ache Patient/Family Education: Topic: Pain does not always equal harm or worsening condition. Anxiety and emotions can increase pain severity Learner: patient Method: verbal Barriers to Learning: none noted Outcome: verbalized understanding Team Communication: ?? Terence Fox, ANESTHESIOLOGY PHYSICIAN ASSISTANT: Patient tolerated therapies this morning without significant change in function ASSESSMENT: Ynes presents with improved balance and endurance compared to last week. Fatigue continues to be a factor leading to moderate gait instability with need for 1 assist. With short distances patient was supervision for mobility without a device today. She reported increasing head ache through out the day and at the 2nd session. She was willing to participate and reported a reduction in her head ache. Distraction and education that pain does not always equal harm was effective. PLAN: ?? Walking endurance ?? Functional strength training: stairs ?? Progressive leg strengthening ?? Balance Contact information: Pager: [phone] Rohit Sterling PT, DPT 03/21/2020 10:47 * Jaden Rutherford MD - 03/21/2020 0954 EDT Physiatry Progress Note Admit Date: 03/02/2020 Hospital Day: LOS: 19 days Date of Service: 03/21/2020 Chief Complaint: Left temporoparietal hemorrhage status post decompressive craniectomy, setting of central venous thrombosis 02/14/2020 Subjective: Increased headache yesterday, which improved fairly rapidly, although initial plan was reevaluation in the emergency department. Follow-up CT scan of the head late last week, with no acute changes, occurring setting of increased headache and supratherapeutic Lovenox level. Doing well this morning. Intermittent abdominal pain. Limited p.o. intake this morning. Current Facility-Administered Medications: acetaminophen (TYLENOL) tablet 650 mg oral Q4H PRN aspirin chewable tablet 81 mg oral DAILY bisacodyL (DULCOLAX) suppository 10 mg rectal Q48H PRN calcium carbonate (TUMS) 200 mg calcium (500 mg) per chewable tablet tablet,chewable 1 Tab oral QIDPRN docusate sodium (COLACE) capsule 100 mg oral BID PRN enoxaparin (LOVENOX) injection 80 mg subcutaneous Q12H guaiFENesin tablet 200 mg oral Q6H PRN HYDROmorphone (DILAUDID) tablet 2-4 mg oral Q4H PRN lactulose (CHRONULAC) 20 gram/30 mL solution 30 mL oral BID PRN melatonin tablet 3 mg oral QHS multivitamin (FLINTSTONES) chewable tablet 1 Tab oral DAILY nicotine (NICODERM CQ) 7 mg/24 hr patch 1 Patch transdermal Q24H ondansetron (ZOFRAN-ODT) disintegrating tablet 4 mg oral Q4H PRN pantoprazole (PROTONIX) tablet 40 mg oral DAILY papain-alpha amylase-cellulase (CLOG ZAPPER) 2-5 mL feeding tube PRN polyethylene glycol 3350 (MIRALAX) packet 17 g oral Daily PRN QUEtiapine (SEROQUEL) tablet 12.5 mg oral QHS senna (SENOKOT) tablet 1 Tab oral BID PRN Objective/Physical Exam: VS: Patient Vitals for the past 8 hrs: BP Pulse Resp Temp 03/21/20 0712 127/76 79 14 36 ??C (96.8 ??F) Pain: Patient Vitals for the past 8 hrs: Numeric Pain Level (Scale 1-10) Asleep 03/21/20 0833 7 -- 03/21/20 0709 0 Reassessed, sleeping comfortably, RR WNL. 03/21/20 0630 0 -- 03/21/20 0547 7 -- 03/21/20 0525 0 Reassessed, sleeping comfortably, RR WNL. 03/21/20 0425 0 Other (Comment) 03/21/20 0322 0 Reassessed, sleeping comfortably, RR WNL. 03/21/20 0229 0 Reassessed, sleeping comfortably, RR WNL. Weight: Weight : 83.5 kg (184 lb) Glucose Readings (last 8 readings): No results for input(s): GLUCOSEFINGE in the last 72 hours. I&O: Intake/Output Summary (Last 24 hours) at 03/21/2020 0954 Last data filed at 03/21/2020 0540 Gross per 24 hour Intake 640 ml Output -- Net 640 ml Exam: Gen: Alert, pleasant, no distress HEENT: Left decompressive hemicraniectomy site slightly sunken. Evidence of a right homonymous hemianopsia. No facial droop. Neck supple. Mucosal membranes are moist Skin: no rashes Cardiac: Cor RRR Pulmonary: clear to auscultation bilaterally Abdomen: normal bowel sounds, soft, nontender to palpation, PEG tube has a small split in it just above the bumper, which I applied with tape over with no further evidence of leaking. Musculoskeletal: no joint tenderness, deformity or swelling, no muscular tenderness noted, full range of motion without pain Neuro: Expressive greater than receptive aphasia affect: Alert Motor: No focal motor weakness. There is some relative right lower extremity weakness compared to the other extremities but does not appear clinically significant. Tone normal Reflexes: trace Sensation: No extinction no clear focal sensory loss Cerebellar: no tremors Labs: I have personally reviewed CBC: Lab Results Component Value Date WBC 5.16 03/21/2020 RBC 3.71 (L) 03/21/2020 HGB 11.6 03/21/2020 HCT 34.4 (L) 03/21/2020 MCV 93 03/21/2020 MCH 31.3 03/21/2020 MCHC 33.7 03/21/2020 PLT 220 03/21/2020 NEUTROABS 2.93 03/18/2020 BMP: Lab Results Component Value Date NA 134 (L) 03/21/2020 K 5.2 (H) 03/21/2020 CL 100 03/21/2020 CO2 26 03/21/2020 BUN 34 (H) 03/18/2020 CREATININE 0.65 03/21/2020 CALCIUM 7.5 (L) 03/18/2020 MG 1.7 03/02/2020 PHOS 4.6 (H) 03/07/2020 LABALBU 2.6 (L) 03/18/2020 Assessment/Problems: (update problem list daily as appropriate) Patient Active Problem List Diagnosis Date Noted ??? *(H)Left-sided nontraumatic intracerebral hemorrhage ([facility]) 03/02/2020 Priority: Medium Status post decompressive hemicraniectomy ??? Brain herniation ([facility]) 02/17/2020 Priority: Medium ??? Cerebral edema ([facility]) 02/17/2020 Priority: Medium ??? 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 (H)Cerebral venous thrombosis 02/14/2020 Priority: Medium ??? Encounter for insertion or removal of intrauterine contraceptive device 02/12/2020 Priority: Medium ??? Nicotine dependence, unspecified, uncomplicated 02/12/2020 Priority: Medium ??? Perimenopausal 02/12/2020 Priority: Medium ??? Post concussion syndrome 02/12/2020 Priority: Medium ??? Tobacco abuse 12/02/2012 Priority: Medium ??? Chronic low back pain 10/13/2012 Priority: Medium ??? Back pain 09/25/2012 Priority: Medium Plan: 1. Left frontal intraparenchymal hemorrhage: Status post decompressive craniectomy. Patient with residual mild right-sided weakness, significant expressive and receptive aphasia, dysphagia, right homonymous hemianopsia. Full PT, OT, ANESTHESIOLOGY PHYSICIAN ASSISTANT to address mobility, self care communication and swallowing fun ction. 24 hour rehab nursing for self care deficits. Continued intermittent headache, which appearsto improve with some distraction and has improved each time spontaneously. Is reassuring with a recent CT scan but no acute changes are going on. Helmet on when out of bed. Diet advanced to regular consistency. 2. 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 Evidence of left IJ, sigmoid and transverse sinuses as well. Now on therapeutic dose Lovenox. Low molecular weight heparin level obtained and was subtherapeutic with Lovenox adjusted to 80 mg every 12 hours. Follow-up low molecular weight heparin level today. Hematology is working on setting up a follow-up in [facility] clinic. 3. Right upper lobe pulmonary embolism, left upper extremity DVT: Now on therapeutic dose Lovenox. ?? 4. History of anxiety/depression: Monitor clinically. Doing well with the Seroquel taper. Consider medical psychology consultation as language deficits allow. She has listed allergies to citalopram and duloxetine. 5. Nutrition: PEG tube placed 02/18/2020. Goal is to keep the tube in place for at least 6 weeks after placement, as reviewed with Dr. Branch from acute care surgery. Diet is currently regular consistency Jaden Rutherford MD 03/21/2020 9:54 * Tam Gentile, OT - 03/21/2020 0821 EDT [facility] Rehabilitation Therapy Inpatient Rehabilitation [facility] Occupational Therapy Encounter Note Date of Service: 03/21/2020 SUBJECTIVE: Pt reports she has fluctuating head pain, it comes and goes, mornings are harder for her. She did indicate she has difficulty with menopause and used to use a patch. She feels like this helped her a lot and is wondering if she can use this again. OBJECTIVE: Start time: 929 Treatment time: 5868-0502 Total Therapy Minutes: 30 minute(s) Interventions included: Self-Care/Home Management 30 minutes To progress functional safety for self care tasks, completed components of self care routine ?? Bed mobility supine to sit edge of bed with supervision ?? Sat edge of bed for self feeding, supervision for safety, pt was using fork for self feeding, cues to locate spoon and use for feeding ?? Pt able to identify this as best option once located ?? Completed dressing with supervision for safety for item retrieval in standing ?? Dressing task completed with supervision for safety seated edge of bed ?? Grooming task at sink with supervision for safety in standing. ?? For brushing teeth, cues to locate toothbrush and toothpaste on right side. Started to put creamon toothbrush, cues to stop and change to toothpaste Vital signs: Vital signs were monitored and were stable throughout occupational therapy session. Patient/Family Education: Topic: Benefits of activity Compensatory strategies Safety awareness Learner: patient Method: verbal and demonstration Barriers to Learning: language Outcome: verbalized understanding and returned demonstration Team Communication: MD present for session, discussed vision issues affecting function. With MD regarding pt reports of prior use of a patch for menopause, that she is not longer using and wondering if she can start again. ASSESSMENT: Pt had good tolerance for therapy this date. She completed self care routine at an ambulatory level with close supervision for safety. Item location on the right side of her visual field do continue to be difficult and suspect she may have decreased vision on this side, MD made aware today. She is demonstrating increased sequencing with activities, and is now able to more independently sequence self care tasks. She will benefit from ongoing therapy to address and progress these skills and to increase her functional participation and independence with daily tasks. PLAN: Scanning tasks, right side specifically for safety with mobility Self care routine, incorporate safety into routine Mobility for self care Sequencing and problem solving activities communicaiton for self care needs Pager: [phone] Tam Gentile OT, 03/21/2020, 8:21 * Terence Fox - 03/21/2020 0806 EDT Speech-Language Pathology Daily and Current Progress Note ANESTHESIOLOGY PHYSICIAN ASSISTANT Diagnosis: Aphasia Medical Diagnosis: Cerebral venous thrombosis and resultant intraparenchymal hemorrhage in the leftfrontotemporal area Date of Onset: 02/14/20 Date of Referral: 03/02/20 Subjective/Objective SUBJECTIVE: Session 1: Thinking too much. That's why, re: perseveration Session 2: Stupid headache. It does suck. I'm frustrated... It's frustrating re: persistent pain. Patient benefited from reclining in bed. OBJECTIVE: Date of Service: 03/21/2020 Session One: Start Time: 1000 Total Therapy minutes: 30 minute(s) c/c tx Second Session: Start Time: 1130 Total Therapy minutes: 30 minute(s) c/c tx 24 hour event: Consult with nursing who reports patient sent to [facility] for head CT and abdominal/ pelvis CT secondary to severe headaches and stomach ache on 03/18. CT HEAD WO CONTRAST (Order [id number]) Status: Final result (Exam End: 03/18/2020 17:35) IMPRESSION No new intracranial abnormality identified. CT ABDOMEN PELVIS W CONTRAST (Order [id number]) Status: Final result (Exam End: 03/18/2020 17:42) IMPRESSION ?? 1. Mild increase in diameter of the common bile duct, nonspecific. No evidence of cholelithiasis onrecent right upper quadrant ultrasound. Recommend clinical correlation as to whether the patient has right upper quadrant pain and correlation with LFTs. MRCP could be obtained for further evaluationif clinically indicated. ?? 2. Interval placement of a PEG tube. There is thickening of the left rectus muscle along the courseof the tubing of the PEG tube. Recommend clinical correlation. ?? 3. Hepatic hypodensities, some of which represent cysts are unchanged. Current Treatment Objectives: Auditory Comprehension: Goal #1: Patient will identify objects in a visual field of 4-6 with >80% accuracy provided minimal cues from the clinician and repetitions for fewer than 50% of trials. 03/11: Session 2- Patient identifies objects in a visual field of 4 with 100% accuracy provided written word and auditory presentation of the word. Patient identifies objects in a visual field of 6 with 80% accuracy provided written word and auditory presentation of the word. Patient requires significant repetition of each item provided field of 6 and encouragement as she was hesitant to answer frequently stating that it made her nervous to have more than 4 items to choose from. 03/12: Session 2- Patient identifies objects in a visual field of 4 with 80% accuracy provided written word and auditory presentation of the word. 03/14: Session 1- Patient identifies objects in a visual field of 4 with 70% accuracy provided written word and auditory presentation of the word. 03/15: 2nd session: Object ID (f of 4) given label and function: 88% accuracy 1. 15 6. 15 2. 15 7. 8 3. 15 8. 13 4. 15 9. / 5. 15 10. / Object ID (f of 4) given label ONLY: 50% accuracy 1. 13 6. 6 2. 15 7. 6 3. 6 8. 6 4. 13 9. 15 5. 13 10. 6 03/16: Session 1- Patient identifies objects in a visual field of 4 with 80% accuracy provided written word and auditory presentation of the word. Patient requires repetition of ~50% of items providedfield of 4. 03/17: Session 1- Patient identifies objects in a visual field of 6 with 80% accuracy provided written word and auditory presentation of the word. Patient requires repetition of ~25% of items providedfield of 4 03/21: Patient identifies object in a visual field of 6 with 70% accuracy given intermittent repetition. Patient consistently exhibited difficulty identifying helmet, but was able to with gestural support. Goal #2: Patient will answer simple yes/no questions immediately after review with >70% accuracyprovided moderate cues for attention and initiation. 03/07: Session 1: Patient responded to Y/N questions with jargon and some intelligible word related to questions (e.g., It was my father's name in response to Is your last name 'Cindy?'). 03/08: Session 1- Patient responds to simple Y/N questions with 30% accuracy. Errorless learning wasattempted with mixed success. 1. 6- Error: Inaccurate attempt at the task item 2. 6- Error: Inaccurate attempt at the task item 3. 6- Error: Inaccurate attempt at the task item 4. 9- Repeated: Accurate, after instructions are repeated (errorless learning utilized) 5. 6- Error: Inaccurate attempt at the task item (errorless learning attempted) 6. 9- Repeated: Accurate, after instructions are repeated (errorless learning utilized) 7. 6- Error: Inaccurate attempt at the task item (errorless learning attempted) 8. 6- Error: Inaccurate attempt at the task item (errorless learning attempted) 9. 9- Repeated: Accurate, after instructions are repeated (errorless learning utilized) 10. 6- Error: Inaccurate attempt at the task item 4/15: Session 1- Patient responds to simple Y/N questions with 60% accuracy. Today patient benefitsfrom written yes/no board and gestures for prompting. 1. 6- Error: Inaccurate attempt at the task item; 9- repeated 2. 9- Repeated: Accurate, after instructions are repeated 3. 15- Complete: accurate, responsive, complete, prompt, efficient 4. 6- Error: Inaccurate attempt at the task item 5. 13- Complete-delayed: Accurate, responsive, complete or complex, delayed 6. 15- Complete: accurate, responsive, complete, prompt, efficient 7. 13- Complete-delayed: Accurate, responsive, complete or complex, delayed 8. 13- Complete-delayed: Accurate, responsive, complete or complex, delayed 9. 13- Complete-delayed: Accurate, responsive, complete or complex, delayed 10. 6- Error: Inaccurate attempt at the task item 4/16: Session 1- Patient responds to simple Y/N questions with 20% accuracy. Today patient benefitsfrom written yes/no board and gestures for prompting. 1. 6- Error: Inaccurate attempt at the task item 2. 6- Error: Inaccurate attempt at the task item 3. 8- Cued: Accurate, after cue is given 4. 15- Complete: accurate, responsive, complete, prompt, efficient 5. 6- Error: Inaccurate attempt at the task item 6. 6- Error: Inaccurate attempt at the task item 7. 6- Error: Inaccurate attempt at the task item 8. 15- Complete: accurate, responsive, complete, prompt, efficient 9. 6- Error: Inaccurate attempt at the task item 10. 6- Error: Inaccurate attempt at the task item 4/17: Session 1- Patient responds to simple Y/N questions with 50% accuracy. Today patient benefitsfrom written yes/no board and gestures for prompting. 1. 9- Repeated: Accurate, after instructions are repeated 2. 15- Complete: accurate, responsive, complete, prompt, efficient 3. 15- Complete: accurate, responsive, complete, prompt, efficient 4. 6- Error: Inaccurate attempt at the task item 5. 8- Cued: Accurate, after cue is given 6. 6- Error: Inaccurate attempt at the task item 7. 6- Error: Inaccurate attempt at the task item 8. 15- Complete: accurate, responsive, complete, prompt, efficient 9. 6- Error: Inaccurate attempt at the task item 10. 15- Complete: accurate, responsive, complete, prompt, efficient 03/12: Session 2- Patient responds to simple Y/N questions with 60% accuracy with credit given for answers that were correct following a delay or repetition of the stimulus. Today patient benefits from written yes/no board and gestures for prompting. 1. 13- Complete-delayed: Accurate, responsive, complete or complex, delayed 2. 6- Error: Inaccurate attempt at the task item 3. 9- Repeated: Accurate, after instructions are repeated 4. 15- Complete: accurate, responsive, complete, prompt, efficient 5. 13- Complete-delayed: Accurate, responsive, complete or complex, delayed 6. 6- Error: Inaccurate attempt at the task item 7. 6- Error: Inaccurate attempt at the task item 8. 15- Complete: accurate, responsive, complete, prompt, efficient 9. 6- Error: Inaccurate attempt at the task item 10. 15- Complete: accurate, responsive, complete, prompt, efficient 03/14: Session 2- Patient responds to simple Y/N questions with 60% accuracy with credit given for answers that were correct following a delay or repetition of the stimulus. Today patient benefits from written yes/no board and gestures for prompting. 1. 6- Error: Inaccurate attempt at the task item 2. 15- Complete: accurate, responsive, complete, prompt, efficient 3. 6- Error: Inaccurate attempt at the task item 4. 13- Complete-delayed: Accurate, responsive, complete or complex, delayed 5. 2- Attention: No response, but patient attends to the guido 6. 13- Complete-delayed: Accurate, responsive, complete or complex, delayed 7. 15- Complete: accurate, responsive, complete, prompt, efficient 8. 10- Corrected: Accurate, self-corrected 9. 15- Complete: accurate, responsive, complete, prompt, efficient 10. 15- Complete: accurate, responsive, complete, prompt, efficient 03/16: Session 1 - Patient responds to simple Y/N questions with 80% accuracy with credit given for answers that were correct following a delay or repetition of the stimulus. Today patient benefits from written yes/no board and gestures for prompting. 1. 9- Repeated: Accurate, after instructions are repeated 2. 13- Complete-delayed: Accurate, responsive, complete or complex, delayed 3. 13- Complete-delayed: Accurate, responsive, complete or complex, delayed 4. 6- Error: Inaccurate attempt at the task item 5. 13- Complete-delayed: Accurate, responsive, complete or complex, delayed 6. 15- Complete: accurate, responsive, complete, prompt, efficient 7. 15- Complete: accurate, responsive, complete, prompt, efficient 8. 10- Corrected: Accurate, self-corrected 9. 15- Complete: accurate, responsive, complete, prompt, efficient 10. 15- Complete: accurate, responsive, complete, prompt, efficient 03/17: Session 1 - Patient responds to simple Y/N questions with 80% accuracy with credit given for answers that were correct following a delay or repetition of the stimulus. Today patient benefits from written yes/no board and gestures for prompting. 1. 9- Repeated: Accurate, after instructions are repeated 2. 6- Error: Inaccurate attempt at the task item 3. 15- Complete: accurate, responsive, complete, prompt, efficient 4. 9- Repeated: Accurate, after instructions are repeated 5. 13- Complete-delayed: Accurate, responsive, complete or complex, delayed 6. 13- Complete-delayed: Accurate, responsive, complete or complex, delayed 7. 13- Complete-delayed: Accurate, responsive, complete or complex, delayed 8. 13- Complete-delayed: Accurate, responsive, complete or complex, delayed 9. 13- Complete-delayed: Accurate, responsive, complete or complex, delayed 10. 6- Error: Inaccurate attempt at the task item 03/19: Session 1: Simple non contextual yes/no questions 7/10 at 70% (Is glue sticky? Are fires cold?) 03/21: Patient answers simple contextual Y/N questions (e.g., Is this a computer? Is it snowing?) with 70% accuracy given gestural supports and repetition of 8/10 questions presented. Goal #3: Patient will follow simple 1-step commands related to functional environment with >70% accuracy provided moderate verbal/tactile/visual cues in order to increase functional integration into environment. 03/09: Session 2- Patient follows simple 1-step commands related to environment with 0% accuracy independently. Accuracy increases to 90% accuracy following a model by the clinician with slowed auditory presentation of directions. 16: Session 1- Patient follows simple 1-step commands related to environment with 0% accuracy independently. Accuracy increases to 90% accuracy following a model by the clinician with slowed auditory presentation of directions. 03/12: Session 1- Patient follows simple 1-step commands related to environment with 0% accuracy independently. Accuracy increases to 62% accuracy following a model by the clinician with slowed auditory presentation of directions. 03/14: Session 2- Patient follows simple 1-step commands related to environment with 100% accuracy following a model by the clinician with slowed auditory presentation of directions. 03/15: / session: Patient followed 1 step commands in the context of therapy tasks today giveninitial demonstration. 03/16: Session 2- Patient follows simple 1-step commands related to environment with 90% accuracy following a model by the clinician with slowed auditory presentation of directions. 03/17: Session 1- Patient follows simple 1-step commands related to environment with 100% accuracy following a model by the clinician with slowed auditory presentation of directions. Patient completed1 of the commands independently without a model from the clinician today. 03/18: Session 1: Followed 2/10 simple 1 step commands independently. Patient followed ANESTHESIOLOGY PHYSICIAN ASSISTANT model with 100% accuracy. 03/19: Session 1: Followed 4/10 simple one step commands independently. Followed ANESTHESIOLOGY PHYSICIAN ASSISTANT model with 90% accuracy (blow a kiss, look out the window, big smile) 03/21: Followed 6/6 simple one-step commands given clinical model. Upon delayed repetition of the same commands, patient followed 3/6 simple one-step commands given additional repetition. Expressive Language: Goal #1: Patient will recite automatic speech tasks given moderate cues with >70% accuracy. 03/08: Session 1- Patient recites automatic speech tasks with the clinician. See results below: 1-10: 100% accuracy following a model The Alphabet: Unable to perform in unison Months of the Years: Attempted to have patient repeat each month after the clinician: November, December, (jargon), (jargon), stomach, June, April medication, June compation, sincation medication,seegus, French, lessonagus Musa, Decemegas 03/09: Session 1- Patient recites automatic speech tasks with the clinician. See results below: 1-10: 100% accuracy following a starter cue one... The Alphabet: T1: A, me, S, d, 8, q, A, me, d, ec, q, g, h, eed, h ; T2: Patient was able to achieve 50% in unison with the clinician but eventually perseverated on w Days of the Week: Patient perseverated on w, k despite max cues, models, and attempts to perform in unison Session 2- Patient recites automatic speech tasks with the clinician. See results below: 1-10: 80% accuracy following a repetition of the instructions; 80% accuracy in trial 2 following a repetition of the instructions. The Alphabet: A, 7 you mean? following max cues and models Days of the Week: Patient perseverated on w, k despite max cues, models, and attempts to perform in unison 03/10: Session 1- Patient recites automatic speech tasks with the clinician. See results below: 1-10: 100% accuracy The Alphabet: a, q, q, jews, each, l, l, elf Days of the Week: w, q, w, q, w, q, l, q, l, q 03/12: Session 2- Patient recites automatic speech tasks with the clinician. See results below: 1-10: 90% accuracy The Alphabet: l, n, h, stomich, a, m, h, m, etch, is it etch? Days of the Week: elmen, elmen threemen, riley three hundred, h, h, eight? No, stomach 03/14: Session 2- Patient recites automatic speech tasks with the clinician. See results below: 1-10: 90% accuracy Days of the Week: feminal, lessons, lezimen... 03/16: Session 1- Patient recites automatic speech tasks with the clinician. See results below: 1-10: 0% accuracy Days of the Week: drama, bever, mener, sever... 03/17: Session 1- Patient recites automatic speech tasks with the clinician. See results below: 1-10: 100% accuracy Days of the Week: Saturday, Saturday, Wender, Jimier, Wekaler, Sender, Fender when repeating each day individually following a model by the clinician. 03/18: Session 1: Counting 1-10 Trial one: 04/03. Trial Two: 07/06 (Eight, Ninth, Tenth, Eleventh, Twelfth - Is that what you want? I got lost. 03/19: Session 1: Counting 1-10 at 90% accuracy, Days of the week - 03/01 03/21: Patient recites automatic sequences with the following accuracy: Counting 1-10: 08/04 (error: ten-hundred) Days of the week: 01/01 (perseveration on hundred e.g., nine one hundred). Following break and spontaneous production of Saturday: 05/31 Goal #2: Patient will name objects (real or pictured) to confrontation with >50% accuracy provided maximum verbal cues. Probe: naming an object from a fo2 multiple choice- 20% accuracy (patient struggling with repeatingthe words, producing neologisms or paraphasias) 03/15: 2nd session: Repeating name of pictured object (in spontaneous context) in the context of a written expression task: ~50% accuracy (with partial credit for spelling a word out loud accurately!) 1. 6 2. 6 3. 15 4. 15 5. 8* * spelled the word out loud correctly! 03/16: Session 1- Patient names real pictured objects to confrontation provided maximum cues (phonemic, semantic, cloze, repetition, etc.) with 0% accuracy. Target Response 1. Earth derb (max cues) 2. door dargis (max cues) 3. pants stargus (max cues) 4. boxing dargus (max cues) 5. taco targus (max cues) 03/19: Session 1: Confrontation naming of everyday color photographs 0/10 however it was noted that patient began using gestures independently with photos in 6/ pictures (gestured hat, phone, wells, wrist watch, scissors and egg) Patient stated, I never do that before, it's fun! New Goal written. 03/21: Patient named objects in 0/5 trials due to perseveration on Stomach/Sunnik. Patient repeated names as detailed below. Goal #3: Patient will repeat 1-2 syllable functional words with >70% accuracy provided a visual model by the clinician. 03/09: Session 2- Patient repeats 1-2 syllable functional words with 10% accuracy provided a visual model by the clinician. For 60% of trials patient produced neologisms and for 30% of trials patient produced phonemic paraphasias. See results below: 2. 6- Error: Inaccurate attempt at the task item; neologism 3. 6- Error: Inaccurate attempt at the task item; neologism 4. 15- Complete: accurate, responsive, complete, prompt, efficient 5. 14- Distorted: accurate, responsive, complete or complex, prompt, distorted; phonemic paraphasia 6. 6- Error: Inaccurate attempt at the task item; neologism 7. 6- Error: Inaccurate attempt at the task item; neologism 8. 14- Distorted: accurate, responsive, complete or complex, prompt, distorted; phonemic paraphasia 9. 14- Distorted: accurate, responsive, complete or complex, prompt, distorted; phonemic paraphasia 10. 6- Error: Inaccurate attempt at the task item; neologism 03/10: Session 1- Patient repeats 1-2 syllable functional words with 30% accuracy provided a visual model by the clinician. For 70% of trials patient produced neologisms. See results below: 1. 8- Cued: Accurate, after cue is given; neologism for first few trials; required tactile and visual cues 2. 15- Complete: accurate, responsive, complete, prompt, efficient 3. 6- Error: Inaccurate attempt at the task item; neologism 4. 6- Error: Inaccurate attempt at the task item; neologism 5. 15- Complete: accurate, responsive, complete, prompt, efficient 6. 15- Complete: accurate, responsive, complete, prompt, efficient 7. 6- Error: Inaccurate attempt at the task item; neologism 8. 6- Error: Inaccurate attempt at the task item; neologism 9. 6- Error: Inaccurate attempt at the task item; neologism 10. 6- Error: Inaccurate attempt at the task item; neologism Session 2- Patient repeats 1-2 syllable functional words with 30% accuracy provided a visual model by the clinician. For 70% of trials patient produced neologisms. 03/11: Session 1- Patient repeats 1-2 syllable functional words with 0% accuracy provided a visual model by the clinician. See results below: Target Response 1. socks stomach 2. chair Stomach mesausen 3. finger megas megasarus 4. baby Lady mesasus 5. helmet helmamarier 6. Earth siroath 7. mandaen churchtons 8. pepper lymins 9. shorts short hundreds 10. sink [place] desa[place]in; sank; sank 03/12: Session 1- Patient repeats 1-2 syllable functional words with 50% accuracy provided a visual model by the clinician. See results below: Target Response Error Type 1. teeth clun neologism 2. golf nogolsh neologism 3. crown clanin neologism 4. rice rice - 5. money money - 6. horse horse - 7. doctor Stomach menesis Perseveration + neologism 8. legs Leg? that's it? leg - 9. wallet walwalleck Phonemic paraphasia 10. pizza pizza. I know that. - 03/14: Session 1- Patient repeats 1-2 syllable functional words with 30% accuracy provided a visual model by the clinician. Errors were typically phonemic paraphasias with the occasional neologism. See results below: Target Response Error Type 1. onion umion Phonemic paraphasia 2. chair air Phonemic paraphasia 3. zipper zipper - 4. chest shate neologism 5. boxing dockwis neologism 6. soldier soulmir Phonemic paraphasia 7. saw sawmich Neologism + perseveration 8. kitchen kitchen - 9. corn corn - 10. vacuum vactum Phonemic paraphasia Session 2- Patient repeats 1-2 syllable functional words with 10% accuracy provided a visual model by the clinician. Errors were typically phonemic paraphasias with the occasional neologism. See results below: Target Response Error Type 1. hat s- um, hat - 2. salad holad Phonemic paraphasia 3. chair Stomach attic Neologism + perseveration 4. bird Stomach umanick Neologism + perseveration 5. money kathya attic Phonemic paraphasia + neologism 6. hand hammock Phonemic paraphasia 7. rice dammish neologism 8. pool amicus neologism 9. glasses dimanick neologism 10. watch gamican neologism level Probe: Repeating functional phrases Target Response 1. Hi. Hi. 2. How are you? How are yule? 3. My name is Ynes. My name spill it. 4. I need help. I need united something. 5. I'm hungry. Nide medical under. 03/15: 1st session: Repeating of single words in the context of reading comprehension task today: 01/06, 17% accuracy, patient demonstrated poor awareness of her errors. Cloze cues were successful at eliciting target word on two instances, however this is not consistently successful 03/16: Session 1- Patient repeats 1-2 syllable functional words with 50% accuracy provided a visual model by the clinician. Errors were typically phonemic paraphasias. See results below: Target Response Error Type 1. bee bee - 2. doctor doctor - 3. beach beach - 4. level lever phonemic paraphasia 5. hand hand - 6. lamp ganter neologism 7. glove glug phonemic paraphasia 8. helmet helment phonemic paraphasia 9. coffee cofter phonemic paraphasia 10. baby baby - Probe: Repeating functional phrases Target Response 1. Hi. My. 2. How are you? Why are you? 3. My name is Ynes. My eater... (jargon) 4. I need help. I need kayla. 5. I'm hungry. I'm mentor. 6. I'm thirsty. My ever. 7. I need to use the toilet. (jargon) Session 2- Patient repeats 1-2 syllable functional words with 40% accuracy provided a visual model by the clinician. Errors were typically phonemic paraphasias and occasionally neologisms. See results below: Target Response Error Type 1. whale leborston neologism 2. house hout Phonemic paraphasia 3. bed den Phonemic paraphasia 4. dress gama Phonemic paraphasia 5. onion onion - 6. money many Phonemic paraphasia 7. road road - 8. football whipnar neologism 9. shoulder shoulder - 10. nurse nurse - 03/17: Session 1- Patient repeats 1-2 syllable functional words with 80% accuracy provided a visual model by the clinician, with credit provided for items that were accurate following multiple trials.Errors were typically phonemic paraphasias. See results below: Target Response Error Type 1. ball ball - 2. sheep Sheet, sheet, sheep Phonemic paraphasia x2 3. stomach stomach - 4. bus bent, but, bus Phonemic paraphasia x2 5. french professor french professor - 6. towels dowel, towels Phonemic paraphasia x1 7. peas teas, teas, tears Phonemic paraphasia x3 8. zipper Zippernight, ,zipper, zipper Phonemic paraphasia x1 9. soccer soccer - 10. crab Cow, crite, choirs Phonemic paraphasia x3 Probe: Repeating functional phrases Target Response 1. Hi. Hi. 2. How are you? T1: Hi owe tour? T2: Hi owe tart? 3. My name is Ynes. T1: My nert T2: Nines ert. 4. I need help. T1: My niners apartments. T2: My nine apartments. 5. I'm hungry. T1: Mine a none-is. T2: Mine dunion. 6. I'm thirsty. T1: Mine abundon. 7. I need to use the toilet. T1: I need abindon melinder. 03/21: Patient repeats 1-2 syllable functional words with 75% accuracy provided a visual model by clinician. Activity discontinued due to perseveration on jargon sunnik and inability to follow further models. Results as follows: Target Response Error Type 1. glasses Glasses - 2. Phone Foam, phone, phone Phonemic paraphasia x1 4. tissue Tissue, tissue - 5. pencil Tensik, tensik Phonemic paraphasia x4 Reading Comprehension: Goal #1: The patient will identify the written word in a field of 2, given an auditory model with 80% accuracy. 03/11: Session 2- Patient identifies written words in a field of 2, given an auditory model with 81%accuracy. 03/12: Session 2- Patient identifies written words in a field of 2, given an auditory model with 50%accuracy. 03/16: Session 2- Patient identifies written words in a field of 2, given an auditory model with 67%accuracy. 03/18: Session 1: Patient identified written words in a field of 2 (presented vertically) with 60% accuracy (LARK word cards). Goal #2: The patient will identify the written word to match a given object or picture with 80% accuracy in a field of 3 (presented in a vertical orientation). 03/12: Session 1- Patient identifies the written word from a field of 3, given a picture of an object, with 53% accuracy. 03/14: Session 2- Attempted but could not complete d/t patient complaining of not being able to see stimuli d/t them being blurry. 03/15: 1st session: Patient was given a pictured object/item and then presented with three words, written by clinician in a vertical presentation and held upright for her viewing. She then used the picture to 'underline' the matching written word. She independently manipulated the picture to aid hervision. Word to picture match (f of 2 words), presented vertically: 100% accuracy 1. 13 6. 13 2. 15 7. / 3. 13 8. / 4. 15 9. / 5. 13 10. / Word to picture match (f of 3 words), presented vertically: 83% accuracy 1. 6 6. 15 2. 13 7. / 3. 15 8. / 4. 13 9. / 5. 15 10. / 03/16: Session 2- Probe: Patient identifies written 2-3 word phrases from a field of 2, given a picture of an object with 50% accuracy. 03/18: Session 1: Word to picture (field of 3 words), presented vertically: 07/04 at 80% Written Expression: Goal #1: The patient will write functional words and short phrases related to personal information (e.g., name, address, date of ) with 90% accuracy given mod verbal/visual cues. 03/09: Session 2- Patient writes functional words and short phrases related to personal information.See results below: Name: 100% accuracy Address: Patient does not provide street number, street name, or apartment number. She did write inapartment number once clinician wrote in the street number and street name. She got 100% accuracy for city and state. Phone Number: 100% accuracy Occupation: Unable to complete. 03/12: Session 1- Patient writes functional words and short phrases related to personal information.See results below: Name: 100% accuracy Address: 100% accuracy following a self-correction Phone Number: 100% accuracy Occupation: 100% accuracy following request for clarification and mod cues from the clinician 03/15: 2nd session: Patient copied her first and last name accurately and independently. Probe: Patient presented with a pictured object/item and provided it's label verbally. She was asked to write the name of the object/item. Initial perseveration on the letter of her first name, however she recognized this error and accurately self corrected to write the first 2 letters of the word 'dog' (accurate for picture). Given two written foils of the accurate spelling, she quickly and accurately identified the correct spelling (and did so with 100% accuracy subsequently). Trials were continued: 1. 12/MC 2. 12/MC 3. 8/MC 4. 15* 5. 12 given initial letter 12 = partially correct spelling which most often included initial 2 letters of the word being written accurately MC = successful identification of the spelling given multiple choice *spelled aloud accurately, otherwise spelling aloud characterized by jargon letters Augmentative Communication New Goal #1: The patient will generate gestures representing basic needs with 80% accuracy in response to auditory or visual instruction. 03/19 Session 1: Patient generated gestures independently with photos in 6/10 pictures with 60% accuracy (hat, phone, wells, wrist watch, scissors and egg) PATIENT/FAMILY EDUCATION: Patient/Family Education: Patient/family education was provided today including: rehab goals and questions were addressed. Topic: Patient/Family education and training was completed today including: the role of Speech-Language Pathology aphasia perseveration questions were addressed Learner: patient Method of Education: Verbal Barriers to Learning/Education: fatigue, headache pain, and presence of language impairment Patient: needs further instruction and education Family: No family present. Patient/Family Goals: Patient states I want to get better. Team Communication: Conversation with patient's OT who is suspecting a right homonymous hemianopsia ?? Assessment /CLINICAL IMPRESSIONS: Ynes White is a female 50 y.o. 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 It should be noted that patient went to [facility] for head CT and abdominal/ pelvis CT secondary to severe headaches and stomach ache on 03/18. Today, Ynes initiated the first session with improved verbal expression, including decreased jargon and increased length of utterance. Following 2-3 minutes of introductory conversation, she began demonstrate perseveration on previously expressed words, decreasing the meaningfulness of her expression and resulting in difficulty with verbal expression carrying over through both sessions. Despite perseveration, Ynes, demonstrated improved recitation of automatic sequences given model for initial wordin sequence to break perseveration. She also demonstrated improved identification of objects given verbally presented word, however, she continues to rely on significant gestural supports and models to follow simple directions and answer yes/no questions. Reading comprehension was to be addressed, however patient complained of severe headache, worsened by visual stimulation. Therefore only auditory comprehension and verbal expression were addressed today. Ynes remains appropriate for 30 min BID sessions for aphasia intervention based on her level of fatigue and headache pain. Ynes White currently presents with severe expressive and receptive aphasia, most consistent with Wernicke's type but with some deviation from typical Wernicke's type presentation. Patient appears to be able to follow some basic 1-step commands effectively provided context, models, slow auditory presentation of information, and tactile cues as needed. Repetition, object naming, word fluency,sentence completion, and responsive speech are all impaired. Ynes demonstrates a favorable response to use of gestures to assist with her auditory comprehension. Expressive language is characterized as fluent but mostly consists of word salad with many instances of jargon, neologisms, and paraphasias with occasional moments of intelligible discourse scattered throughout. Stefanies discourse could also be described as tangential and perseverative. She attempts to utilize gestures to augmenther expressive language, but is not always successful. She is also demonstrating breakdowns in reading comprehension at the short sentence level and significant deficits in written expression at the word level, compounded by impaired auditory comprehension preventing writing to dictation and impaired naming preventing written naming. These deficits impact the patient's ability to functionally comm unicate her wants, needs, and ideas and hold conversation. She presents with severe impairments in reading comprehension, however, she demonstrates some success with reading comprehension at the wordlevel, which appears to be a relative strength compared to her auditory comprehension. She exhibits significant breakdown in reading comprehension at the short sentence level. Ynes also demonstrates significant deficits in written expression at the single word level however this appears to be improving and her awareness of these errors appears better than her awareness of errors in verbal expression. She also demonstrates relative strength in copying words and sentences, as well as writing numbers. It has been determined that the patient demonstrates deficits that impact functioning in daily activities and hinder participation in life situations.??Patient currently requires assistance from others to communicate basic wants and needs and direct her medical care. Pt will continue to benefit from her needs being anticipated and simplified information presented to her. Information should be repeated and said in different ways, and augmented with pictures and gestures. The patient is demonstrating strengths in motivation and some intact basic expressive language skills which should be utilized during the patient's plan of care to maximize gains. Contextual factors that may impact the patient's ability to progress toward rehab goals include: severity of language impairment, need for physical assistance, tolerance level for therapy, and pain. Based on patient's tolerance level, it is recommended that patient participate in 30 minute BID sessions initially and build toward 60 minute sessions as tolerated. Given patient's age, independence prior to admission, and social/occupational demands, she would benefit from intensive ANESTHESIOLOGY PHYSICIAN ASSISTANT intervention. Based on the patient's rehab potential, motivation, prior level of function, and the contextual factors, the patient's prognosis is considered good. It is anticip ated that the patient will make functional gains in expressive and receptive language skills with intensive skilled 1:1 speech language pathology services in the inpatient rehabilitation setting. Functional Communication Measures ([place] [employer]- [employer], 2002). The Functional Communication Measures (FCM???s) are a series of 7 point rating scales, ranging fromleast functional (Level 1) to most functional (Level 7). They have been developed by [employer] to describe different aspects of patient???s functional communication and swallowing abilities over the course of ANESTHESIOLOGY PHYSICIAN ASSISTANT intervention. ?? Spoken Language Comprehension Level 2: With consistent, maximal cues, the individual is able to follow simple directions, respond to simple yes/no questions in context, and respond to simple words orphrases related to personal needs. Spoken Language Expression Level 3: The communication partner must assume responsibility for structuring the communication exchange, and with consistent and moderate cueing, the individual can produce words and phrases that are appropriate and meaningful in context. Reading Level 3: The individual reads single letters and common words, and with consistent moderatecueing, can read some words that are less familiar, longer, and more complex. Writing Level 2: The individual writes single letters and common words with consistent maximal cueing. ?? GOALS: Psychiatric Nurse Goals: Projected Functional Communication Measures at discharge: Spoken Language Comprehension Level 4: Individual consistently responds accurately to simple yes/noquestions and occasionally follows simple directions without cues. Moderate contextual support is usually needed to understand complex sentences/messages. The individual is able to understand limited conversations about routine daily activities with familiar communication partners. Spoken Language Expression Level 4: The individual is successfully able to initiate communication using spoken language in simple, structured conversations in routine daily activities with familiar communication partners. The individual usually requires moderate cueing, but is able to demonstrate use of simple sentences (i.e., semantics, syntax, and morphology) and rarely uses complex sentences/messages. Reading Level 4: The individual reads words and phrases related to routine daily activities, and words that are less familiar, longer, and more complex. The individual usually requires moderate cueing to read sentences of approximately 5-7 words. Writing Level 3: The individual writes single letters and common words, and with consistent moderate cueing, can write some words that are less familiar, longer, and more complex. Short Term Goals: Auditory Comprehension: Goal #1: Patient will identify objects in a visual field of 4-6 with >80% accuracy provided minimal cues from the clinician and repetitions for fewer than 50% of trials. Goal #2: Patient will answer simple yes/no questions immediately after review with >70% accuracyprovided moderate cues for attention and initiation. Goal #3: Patient will follow simple 1-step commands related to functional environment with >70% accuracy provided moderate verbal/tactile/visual cues in order to increase functional integration into environment. ?? Expressive Language: Goal #1: Patient will recite automatic speech tasks given moderate cues with >70% accuracy. Goal #2: Patient will name objects (real or pictured) to confrontation with >50% accuracy provided maximum verbal cues. Goal #3: Patient will repeat 1-2 syllable functional words with >70% accuracy provided a visual model by the clinician. ?? Reading Comprehension: Goal #1: The patient will identify the written word in a field of 2, given an auditory model with 80% accuracy. Goal #2: The patient will identify the written word to match a given object or picture with 80% accuracy in a field of 3 (presented in a vertical orientation). Written Expression: Goal #1: The patient will write functional words and short phrases related to personal information (e.g., name, address, date of ) with 90% accuracy given mod verbal/visual cues. Augmentative Communication New Goal #1: The patient will generate gestures representing basic needs with 80% accuracy in response to auditory or visual instruction. ?? Plan RECOMMENDATIONS: Patient will continue to benefit for further ANESTHESIOLOGY PHYSICIAN ASSISTANT intervention in this setting to address aphasia management and intervention needs. ?? Recommend inpatient rehabilitation ANESTHESIOLOGY PHYSICIAN ASSISTANT services: Patient will be seen for a minimum of 5x/week @ 30minutes BID due to current tolerance level. ?? Communication Access and Shared Decision Making Recommendations Please support communication access and shared decision making ability by doing the following: ?? Support Comprehension: ?? Have a pen and paper ready when communicating. ?? Please present information slowly and simplify. Augment with drawings, diagrams, gestures and pointing. ?? Ask one question at a time. ?? Have only one person speak at a time. ?? Environmental modifications:? Simplify the environment: ?? Carryover/Discharge??and Healthcare Decision making considerations ?? Will need family support for the successful carryover of discharge recommendations. ?? Currently comprehension of non-contextual information is a barrier Terence Fox MS, [facility]-ANESTHESIOLOGY PHYSICIAN ASSISTANT 03/21/2020 15:38 * Maya Calzada, OTR - 03/21/2020 0743 EDT Rehabilitation Therapies Inpatient Rehabilitation [facility] Occupational Therapy Encounter Note Date of Service: 03/21/2020 Subjective/Objective SUBJECTIVE: It just hurts so much, why does it hurt?! pt frustrated, anxious re: head or stomach pain. Holding head in bed, appeared restless. RN and aware. OBJECTIVE: Second Session Start time: 1330 Scheduled time: 6676-3226 Total Therapy Minutes: 0 minute(s) Reason not treated: pt refusing due to pain. RN and MD aware. Interventions included: No Charge re: pt not tolerating -pt in bed upon OT arrival appeared restless, holding head. Pt c/o stomach pain. Asking for 5min totry and rest -upon return to room pt teary, frustrated stating why does it still hurt? RN and MD aware. Pt apologetic. Refusing OT session. Vital signs: Not assessed. RN aware. Patient/Family Education: NA Team Communication: Coverage via primary OT, with RN and MD re: pt refusal and pain Assessment/Plan ASSESSMENT: Pt not tolerating due to pain. Unclear stomach vs head due to aphasia. Pt appeared upset she could not participate, unclear on motivation level due to pt is new to this OT. PLAN: ?? Per primary OT: visual scanning to R side, activities to challenge sequencing and problem solving, trails A assessment Pager: [phone] Maya Calzada, OTR, 03/21/2020, 13:49 * Mayra Cardenas RN - 03/20/2020 0809 EDT 0740 - Patient called RN to room for sudden, severe headache. She was holding the left side of her head. Restless. BP 112/78 (BP Cuff Location: Right arm, BP Patient Position: Semi fowlers) Pulse 96 Temp 36 ??C (96.8 ??F) (Tympanic) Resp 16 Ht 170.2 cm (67) Wt 84.2 kg (185 lb 11.2 oz) SpO2 97% BMI 29.08 kg/m?? 0742 - This RN attempted to complete a stroke neuro assessment - patient uncooperative with full assessment. 0745 - Dr. Moscoso made aware and requested the patient to go to the ED. 0748 - Tylenol given per eMAR. Patient made aware that she was going to have to go to the ED to check her head d/t sudden, severe headache. Patient became agitated and voiced that she was not going. 0805 - Ambulance arrived. Patient stating that she is not going to the ED. She is stating that she has a stomachache and needs stomach meds but pointing to the left side of her head. 0810 - Dr. Moscoso made aware that patient is refusing to go to ED. 0813 - Ambulance crew left. * Neal Moscoso MD - 03/20/2020 0749 EDT Called for patient with severe headache, writhing in pain, not cooperative with nursing assessments. Per nursing this is gross departure from any prior behavior. Pt has had headache intermittently and CT head was done 03/18 for headache in anticoagulated patient. Headache report today more severe than any prior and behavior is departure from baseline. Repeat imaging warranted. Pt to transfer to ED for this. Addendum: nursing called back to state that patient was screaming in pain and writhing in bed upon initial call 20 min earlier, but when patient was informed of transfer to ED for eval patient instantly returned to baseline, stated her headache was better, and declined transfer to ED. Patient now appears at baseline per nursing assessment. Patient not transferred to ED. * Sridevi Mott, OT - 03/19/2020 1005 EDT [facility] Rehabilitation Therapy Inpatient Rehabilitation [facility] Occupational Therapy Encounter Note Date of Service: 03/19/2020 Subjective/Objective Subjective Pt resting in bed when OT arrived for session, having just finished with ANESTHESIOLOGY PHYSICIAN ASSISTANT services Pt reporting she feels she should be more aware, she is trying to understand what she needs to get better at I have to learn to calm down, taking deep breaths Pt reporting she was awake very hour last night Objective Start time: 1000 Total Therapy Minutes: 30 minute(s) Interventions included: Therapeutic Activities(2) Pt reporting some mild stomach pain and anxiety/emotions, resting in bed at this time Pt unable to accurately state the date, day or year when asked. She did attempt to refer to white board however unable to locate or state correctly Focus of activity on assessing pt's attention, learning, and ability to follow directions ?? Pt participated in a game of Zadego. She required visual demonstration (3 repetitions) of howto perform activity. Pt able to follow through with activity locating matches of cards independently. She did become frustrated one time without being able to find the match easily and quickly, she was able to remain calm and take deep breaths, pt able to continue on with game. Pt able to locate 11matches on cards in 6 minutes. Second session Treatment time: 30 minutes Total therapy minutes: 30 minutes Intervention: Therapeutic activity (2) Focus of activity on progressing visual copy of design attention and focus ?? Pt able to complete 4 patterns using [employer] game. She was able to follow each pattern in a timely manner. Did demonstrate mild frustration and fatigue, reporting some mild head pain with activity,initiated short rest break with eyes closed and was able to return to activity to complete it. Pt double checking her work to ensure correct pattern copy with no cues to initiate. Pt participated in 2 games on [employer]OPE. She was able to maintain focus for entire game, plan a strategy on how to win and play defense during game as well. Vital signs: Vital signs have been stable with interventions and were not monitored. Patient/Family Education: Topic: Role of OT Learner: patient Method: verbal Barriers to Learning: cognitive deficits and language Outcome: verbalized understanding Team Communication: OT colleague re. Treatment sheet Assessment/Plan Assessment Ynes was willing to engage in both therapy sessions despite appearing to not be feeling 100% today. She did become frustrated at times however was easily able to maintain control and maintain her focus on the activity. She did well maintaining attention, problem solving and appeared to be enjoying herself engaging in all games presented. She also appeared to benefit from the positive feedback provided on her performance with each game. 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 OBJECTIVE: Date of Service: 03/19/2020 Session One: Start Time: 924 Total Therapy minutes: 30 minute(s) comm-cog tx Session Two: ANESTHESIOLOGY PHYSICIAN ASSISTANT returned to patient's room while she was resting in bed watching TV. Patient continue to apologize however declined afternoon treatment due to continued headache. Patient appeared discouraged anduncomfortable. Consulted with nursing who reported that she will give her pain meds and will encourage her to rest in the afternoon. 24 hour event: Consult with nursing who reports patient sent to [facility] for head CT and abdominal/ pelvis CT secondary to severe headaches and stomach ache on 03/18. CT HEAD WO CONTRAST (Order [id number]) Status: Final result (Exam End: 03/18/2020 17:35) IMPRESSION No new intracranial abnormality identified. CT ABDOMEN PELVIS W CONTRAST (Order [id number]) Status: Final result (Exam End: 03/18/2020 17:42) IMPRESSION ?? 1. Mild increase in diameter of the common bile duct, nonspecific. No evidence of cholelithiasis onrecent right upper quadrant ultrasound. Recommend clinical correlation as to whether the patient has right upper quadrant pain and correlation with LFTs. MRCP could be obtained for further evaluationif clinically indicated. ?? 2. Interval placement of a PEG tube. There is thickening of the left rectus muscle along the courseof the tubing of the PEG tube. Recommend clinical correlation. ?? 3. Hepatic hypodensities, some of which represent cysts are unchanged. Current Treatment Objectives: Auditory Comprehension: Goal #1: Patient will identify objects in a visual field of 4-6 with >80% accuracy provided minimal cues from the clinician and repetitions for fewer than 50% of trials. 03/11: Session 2- Patient identifies objects in a visual field of 4 with 100% accuracy provided written word and auditory presentation of the word. Patient identifies objects in a visual field of 6 with 80% accuracy provided written word and auditory presentation of the word. Patient requires significant repetition of each item provided field of 6 and encouragement as she was hesitant to answer frequently stating that it made her nervous to have more than 4 items to choose from. 03/12: Session 2- Patient identifies objects in a visual field of 4 with 80% accuracy provided written word and auditory presentation of the word. 03/14: Session 1- Patient identifies objects in a visual field of 4 with 70% accuracy provided written word and auditory presentation of the word. 03/15: 2nd session: Object ID (f of 4) given label and function: 88% accuracy 1. 15 6. 15 2. 15 7. 8 3. 15 8. 13 4. 15 9. / 5. 15 10. / Object ID (f of 4) given label ONLY: 50% accuracy 1. 13 6. 6 2. 15 7. 6 3. 6 8. 6 4. 13 9. 15 5. 13 10. 6 03/16: Session 1- Patient identifies objects in a visual field of 4 with 80% accuracy provided written word and auditory presentation of the word. Patient requires repetition of ~50% of items providedfield of 4. 03/17: Session 1- Patient identifies objects in a visual field of 6 with 80% accuracy provided written word and auditory presentation of the word. Patient requires repetition of ~25% of items providedfield of 4 Goal #2: Patient will answer simple yes/no questions immediately after review with >70% accuracyprovided moderate cues for attention and initiation. 03/07: Session 1: Patient responded to Y/N questions with jargon and some intelligible word related to questions (e.g., It was my father's name in response to Is your last name 'Cindy?'). 03/08: Session 1- Patient responds to simple Y/N questions with 30% accuracy. Errorless learning wasattempted with mixed success. 1. 6- Error: Inaccurate attempt at the task item 2. 6- Error: Inaccurate attempt at the task item 3. 6- Error: Inaccurate attempt at the task item 4. 9- Repeated: Accurate, after instructions are repeated (errorless learning utilized) 5. 6- Error: Inaccurate attempt at the task item (errorless learning attempted) 6. 9- Repeated: Accurate, after instructions are repeated (errorless learning utilized) 7. 6- Error: Inaccurate attempt at the task item (errorless learning attempted) 8. 6- Error: Inaccurate attempt at the task item (errorless learning attempted) 9. 9- Repeated: Accurate, after instructions are repeated (errorless learning utilized) 10. 6- Error: Inaccurate attempt at the task item 03/09: Session 1- Patient responds to simple Y/N questions with 60% accuracy. Today patient benefitsfrom written yes/no board and gestures for prompting. 1. 6- Error: Inaccurate attempt at the task item; 9- repeated 2. 9- Repeated: Accurate, after instructions are repeated 3. 15- Complete: accurate, responsive, complete, prompt, efficient 4. 6- Error: Inaccurate attempt at the task item 5. 13- Complete-delayed: Accurate, responsive, complete or complex, delayed 6. 15- Complete: accurate, responsive, complete, prompt, efficient 7. 13- Complete-delayed: Accurate, responsive, complete or complex, delayed 8. 13- Complete-delayed: Accurate, responsive, complete or complex, delayed 9. 13- Complete-delayed: Accurate, responsive, complete or complex, delayed 10. 6- Error: Inaccurate attempt at the task item 4/16: Session 1- Patient responds to simple Y/N questions with 20% accuracy. Today patient benefitsfrom written yes/no board and gestures for prompting. 1. 6- Error: Inaccurate attempt at the task item 2. 6- Error: Inaccurate attempt at the task item 3. 8- Cued: Accurate, after cue is given 4. 15- Complete: accurate, responsive, complete, prompt, efficient 5. 6- Error: Inaccurate attempt at the task item 6. 6- Error: Inaccurate attempt at the task item 7. 6- Error: Inaccurate attempt at the task item 8. 15- Complete: accurate, responsive, complete, prompt, efficient 9. 6- Error: Inaccurate attempt at the task item 10. 6- Error: Inaccurate attempt at the task item 4/17: Session 1- Patient responds to simple Y/N questions with 50% accuracy. Today patient benefitsfrom written yes/no board and gestures for prompting. 1. 9- Repeated: Accurate, after instructions are repeated 2. 15- Complete: accurate, responsive, complete, prompt, efficient 3. 15- Complete: accurate, responsive, complete, prompt, efficient 4. 6- Error: Inaccurate attempt at the task item 5. 8- Cued: Accurate, after cue is given 6. 6- Error: Inaccurate attempt at the task item 7. 6- Error: Inaccurate attempt at the task item 8. 15- Complete: accurate, responsive, complete, prompt, efficient 9. 6- Error: Inaccurate attempt at the task item 10. 15- Complete: accurate, responsive, complete, prompt, efficient /18: Session 2- Patient responds to simple Y/N questions with 60% accuracy with credit given for answers that were correct following a delay or repetition of the stimulus. Today patient benefits from written yes/no board and gestures for prompting. 1. 13- Complete-delayed: Accurate, responsive, complete or complex, delayed 2. 6- Error: Inaccurate attempt at the task item 3. 9- Repeated: Accurate, after instructions are repeated 4. 15- Complete: accurate, responsive, complete, prompt, efficient 5. 13- Complete-delayed: Accurate, responsive, complete or complex, delayed 6. 6- Error: Inaccurate attempt at the task item 7. 6- Error: Inaccurate attempt at the task item 8. 15- Complete: accurate, responsive, complete, prompt, efficient 9. 6- Error: Inaccurate attempt at the task item 10. 15- Complete: accurate, responsive, complete, prompt, efficient 03/14: Session 2- Patient responds to simple Y/N questions with 60% accuracy with credit given for answers that were correct following a delay or repetition of the stimulus. Today patient benefits from written yes/no board and gestures for prompting. 1. 6- Error: Inaccurate attempt at the task item 2. 15- Complete: accurate, responsive, complete, prompt, efficient 3. 6- Error: Inaccurate attempt at the task item 4. 13- Complete-delayed: Accurate, responsive, complete or complex, delayed 5. 2- Attention: No response, but patient attends to the guido 6. 13- Complete-delayed: Accurate, responsive, complete or complex, delayed 7. 15- Complete: accurate, responsive, complete, prompt, efficient 8. 10- Corrected: Accurate, self-corrected 9. 15- Complete: accurate, responsive, complete, prompt, efficient 10. 15- Complete: accurate, responsive, complete, prompt, efficient 03/16: Session 1 - Patient responds to simple Y/N questions with 80% accuracy with credit given for answers that were correct following a delay or repetition of the stimulus. Today patient benefits from written yes/no board and gestures for prompting. 1. 9- Repeated: Accurate, after instructions are repeated 2. 13- Complete-delayed: Accurate, responsive, complete or complex, delayed 3. 13- Complete-delayed: Accurate, responsive, complete or complex, delayed 4. 6- Error: Inaccurate attempt at the task item 5. 13- Complete-delayed: Accurate, responsive, complete or complex, delayed 6. 15- Complete: accurate, responsive, complete, prompt, efficient 7. 15- Complete: accurate, responsive, complete, prompt, efficient 8. 10- Corrected: Accurate, self-corrected 9. 15- Complete: accurate, responsive, complete, prompt, efficient 10. 15- Complete: accurate, responsive, complete, prompt, efficient 03/17: Session 1 - Patient responds to simple Y/N questions with 80% accuracy with credit given for answers that were correct following a delay or repetition of the stimulus. Today patient benefits from written yes/no board and gestures for prompting. 1. 9- Repeated: Accurate, after instructions are repeated 2. 6- Error: Inaccurate attempt at the task item 3. 15- Complete: accurate, responsive, complete, prompt, efficient 4. 9- Repeated: Accurate, after instructions are repeated 5. 13- Complete-delayed: Accurate, responsive, complete or complex, delayed 6. 13- Complete-delayed: Accurate, responsive, complete or complex, delayed 7. 13- Complete-delayed: Accurate, responsive, complete or complex, delayed 8. 13- Complete-delayed: Accurate, responsive, complete or complex, delayed 9. 13- Complete-delayed: Accurate, responsive, complete or complex, delayed 10. 6- Error: Inaccurate attempt at the task item 03/19: Session 1: Simple non contextual yes/no questions 7/10 at 70% (Is glue sticky? Are fires cold?) Goal #3: Patient will follow simple 1-step commands related to functional environment with >70% accuracy provided moderate verbal/tactile/visual cues in order to increase functional integration into environment. 03/09: Session 2- Patient follows simple 1-step commands related to environment with 0% accuracy independently. Accuracy increases to 90% accuracy following a model by the clinician with slowed auditory presentation of directions. 03/10: Session 1- Patient follows simple 1-step commands related to environment with 0% accuracy independently. Accuracy increases to 90% accuracy following a model by the clinician with slowed auditory presentation of directions. 03/12: Session 1- Patient follows simple 1-step commands related to environment with 0% accuracy independently. Accuracy increases to 62% accuracy following a model by the clinician with slowed auditory presentation of directions. 03/14: Session 2- Patient follows simple 1-step commands related to environment with 100% accuracy following a model by the clinician with slowed auditory presentation of directions. 03/15: / session: Patient followed 1 step commands in the context of therapy tasks today giveninitial demonstration. 03/16: Session 2- Patient follows simple 1-step commands related to environment with 90% accuracy following a model by the clinician with slowed auditory presentation of directions. 03/17: Session 1- Patient follows simple 1-step commands related to environment with 100% accuracy following a model by the clinician with slowed auditory presentation of directions. Patient completed1 of the commands independently without a model from the clinician today. 03/18: Session 1: Followed 2/10 simple 1 step commands independently. Patient followed ANESTHESIOLOGY PHYSICIAN ASSISTANT model with 100% accuracy. 03/19: Session 1: Followed 4/10 simple one step commands independently. Followed food stylist model with 90% accuracy (blow a kiss, look out the window, big smile) Expressive Language: Goal #1: Patient will recite automatic speech tasks given moderate cues with >70% accuracy. 03/08: Session 1- Patient recites automatic speech tasks with the clinician. See results below: 1-10: 100% accuracy following a model The Alphabet: Unable to perform in unison Months of the Years: Attempted to have patient repeat each month after the clinician: November, December, (jargon), (jargon), , June, April medication, June compation, sincation medication,seegus, French, lessonagus Musa, Decemegas 03/09: Session 1- Patient recites automatic speech tasks with the clinician. See results below: 1-10: 100% accuracy following a starter cue one... The Alphabet: T1: A, me, S, d, 8, q, A, me, d, ec, q, g, h, eed, h ; T2: Patient was able to achieve 50% in unison with the clinician but eventually perseverated on w Days of the Week: Patient perseverated on w, k despite max cues, models, and attempts to perform in unison Session 2- Patient recites automatic speech tasks with the clinician. See results below: 1-10: 80% accuracy following a repetition of the instructions; 80% accuracy in trial 2 following a repetition of the instructions. The Alphabet: A, 7 you mean? following max cues and models Days of the Week: Patient perseverated on w, k despite max cues, models, and attempts to perform in unison 03/10: Session 1- Patient recites automatic speech tasks with the clinician. See results below: 1-10: 100% accuracy The Alphabet: a, q, q, jews, each, l, l, elf Days of the Week: w, q, w, q, w, q, l, q, l, q 03/12: Session 2- Patient recites automatic speech tasks with the clinician. See results below: 1-10: 90% accuracy The Alphabet: l, n, h, stomich, a, m, h, m, etch, is it etch? Days of the Week: elmen, elmen threemen, riley three hundred, h, h, eight? No, stomach 03/14: Session 2- Patient recites automatic speech tasks with the clinician. See results below: 1-10: 90% accuracy Days of the Week: feminal, lessons, lezimen... 03/16: Session 1- Patient recites automatic speech tasks with the clinician. See results below: 1-10: 0% accuracy Days of the Week: drama, bever, mener, sever... 03/17: Session 1- Patient recites automatic speech tasks with the clinician. See results below: 1-10: 100% accuracy Days of the Week: Saturday, Saturday, Wender, Thunder, Wender, Sender, Fender when repeating each day individually following a model by the clinician. 03/18: Session 1: Counting 1-10 Trial one: 04/03. Trial Two: 07/06 (Eight, Ninth, Tenth, Eleventh, Twelfth - Is that what you want? I got lost. 03/19: Session 1: Counting 1-10 at 90% accuracy, Days of the week - 03/01 Goal #2: Patient will name objects (real or pictured) to confrontation with >50% accuracy provided maximum verbal cues. Probe: naming an object from a fo2 multiple choice- 20% accuracy (patient struggling with repeatingthe words, producing neologisms or paraphasias) 03/15: 2nd session: Repeating name of pictured object (in spontaneous context) in the context of a written expression task: ~50% accuracy (with partial credit for spelling a word out loud accurately!) 1. 6 2. 6 3. 15 4. 15 5. 8* * spelled the word out loud correctly! 03/16: Session 1- Patient names real pictured objects to confrontation provided maximum cues (phonemic, semantic, cloze, repetition, etc.) with 0% accuracy. Target Response 1. Earth derb (max cues) 2. door dargis (max cues) 3. pants stargus (max cues) 4. boxing dargus (max cues) 5. taco targus (max cues) 03/19: Session 1: Confrontation naming of everyday color photographs however it was noted that patient began using gestures independently with photos in 05/04 pictures (gestured hat, phone, wells, wrist watch, scissors and egg) Patient stated, I never do that before, it's fun! New Goal written. Goal #3: Patient will repeat 1-2 syllable functional words with >70% accuracy provided a visual model by the clinician. 03/09: Session 2- Patient repeats 1-2 syllable functional words with 10% accuracy provided a visual model by the clinician. For 60% of trials patient produced neologisms and for 30% of trials patient produced phonemic paraphasias. See results below: 2. 6- Error: Inaccurate attempt at the task item; neologism 3. 6- Error: Inaccurate attempt at the task item; neologism 4. 15- Complete: accurate, responsive, complete, prompt, efficient 5. 14- Distorted: accurate, responsive, complete or complex, prompt, distorted; phonemic paraphasia 6. 6- Error: Inaccurate attempt at the task item; neologism 7. 6- Error: Inaccurate attempt at the task item; neologism 8. 14- Distorted: accurate, responsive, complete or complex, prompt, distorted; phonemic paraphasia 9. 14- Distorted: accurate, responsive, complete or complex, prompt, distorted; phonemic paraphasia 10. 6- Error: Inaccurate attempt at the task item; neologism 03/10: Session 1- Patient repeats 1-2 syllable functional words with 30% accuracy provided a visual model by the clinician. For 70% of trials patient produced neologisms. See results below: 1. 8- Cued: Accurate, after cue is given; neologism for first few trials; required tactile and visual cues 2. 15- Complete: accurate, responsive, complete, prompt, efficient 3. 6- Error: Inaccurate attempt at the task item; neologism 4. 6- Error: Inaccurate attempt at the task item; neologism 5. 15- Complete: accurate, responsive, complete, prompt, efficient 6. 15- Complete: accurate, responsive, complete, prompt, efficient 7. 6- Error: Inaccurate attempt at the task item; neologism 8. 6- Error: Inaccurate attempt at the task item; neologism 9. 6- Error: Inaccurate attempt at the task item; neologism 10. 6- Error: Inaccurate attempt at the task item; neologism Session 2- Patient repeats 1-2 syllable functional words with 30% accuracy provided a visual model by the clinician. For 70% of trials patient produced neologisms. 03/11: Session 1- Patient repeats 1-2 syllable functional words with 0% accuracy provided a visual model by the clinician. See results below: Target Response 1. socks stomach 2. chair Stomach mesausen 3. finger megas megasarus 4. baby Lady mesasus 5. helmet helmamarier 6. Earth siroath 7. mandaen churchtons 8. pepper lymins 9. shorts short hundreds 10. sink [place] desa[place]in; sank; sank 03/12: Session 1- Patient repeats 1-2 syllable functional words with 50% accuracy provided a visual model by the clinician. See results below: Target Response Error Type 1. teeth clun neologism 2. golf nogolsh neologism 3. crown clanin neologism 4. rice rice - 5. money money - 6. horse horse - 7. doctor Stomach menesis Perseveration + neologism 8. legs Leg? that's it? leg - 9. wallet walwalleck Phonemic paraphasia 10. pizza pizza. I know that. - 03/14: Session 1- Patient repeats 1-2 syllable functional words with 30% accuracy provided a visual model by the clinician. Errors were typically phonemic paraphasias with the occasional neologism. See results below: Target Response Error Type 1. onion umion Phonemic paraphasia 2. chair air Phonemic paraphasia 3. zipper zipper - 4. chest shate neologism 5. boxing dockwis neologism 6. soldier soulmir Phonemic paraphasia 7. saw sawmich Neologism + perseveration 8. kitchen kitchen - 9. corn corn - 10. vacuum vactum Phonemic paraphasia Session 2- Patient repeats 1-2 syllable functional words with 10% accuracy provided a visual model by the clinician. Errors were typically phonemic paraphasias with the occasional neologism. See results below: Target Response Error Type 1. hat s- um, hat - 2. salad holad Phonemic paraphasia 3. chair Stomach attic Neologism + perseveration 4. bird Stomach umanick Neologism + perseveration 5. money kathya attic Phonemic paraphasia + neologism 6. hand hammock Phonemic paraphasia 7. rice dammish neologism 8. pool amicus neologism 9. glasses dimanick neologism 10. watch gamican neologism level Probe: Repeating functional phrases Target Response 1. Hi. Hi. 2. How are you? How are yule? 3. My name is Ynes. My name spill it. 4. I need help. I need united something. 5. I'm hungry. Nide medical under. 03/15: 1st session: Repeating of single words in the context of reading comprehension task today: 01/06, 17% accuracy, patient demonstrated poor awareness of her errors. Cloze cues were successful at eliciting target word on two instances, however this is not consistently successful 03/16: Session 1- Patient repeats 1-2 syllable functional words with 50% accuracy provided a visual model by the clinician. Errors were typically phonemic paraphasias. See results below: Target Response Error Type 1. bee bee - 2. doctor doctor - 3. beach beach - 4. level lever phonemic paraphasia 5. hand hand - 6. lamp ganter neologism 7. glove glug phonemic paraphasia 8. helmet helment phonemic paraphasia 9. coffee cofter phonemic paraphasia 10. baby baby - Probe: Repeating functional phrases Target Response 1. Hi. My. 2. How are you? Why are you? 3. My name is Ynes. My eater... (jargon) 4. I need help. I need kayla. 5. I'm hungry. I'm mentor. 6. I'm thirsty. My ever. 7. I need to use the toilet. (jargon) Session 2- Patient repeats 1-2 syllable functional words with 40% accuracy provided a visual model by the clinician. Errors were typically phonemic paraphasias and occasionally neologisms. See results below: Target Response Error Type 1. samir ashby neologism 2. house hout Phonemic paraphasia 3. bed den Phonemic paraphasia 4. dress gama Phonemic paraphasia 5. onion onion - 6. money many Phonemic paraphasia 7. road road - 8. football whipnar neologism 9. shoulder shoulder - 10. nurse nurse - 03/17: Session 1- Patient repeats 1-2 syllable functional words with 80% accuracy provided a visual model by the clinician, with credit provided for items that were accurate following multiple trials.Errors were typically phonemic paraphasias. See results below: Target Response Error Type 1. ball ball - 2. sheep Sheet, sheet, sheep Phonemic paraphasia x2 3. stomach stomach - 4. bus bent, but, bus Phonemic paraphasia x2 5. french professor french professor - 6. towels dowel, towels Phonemic paraphasia x1 7. peas teas, teas, tears Phonemic paraphasia x3 8. zipper Zippernight, ,zipper, zipper Phonemic paraphasia x1 9. soccer soccer - 10. crab Cow, crite, choirs Phonemic paraphasia x3 Probe: Repeating functional phrases Target Response 1. Hi. Hi. 2. How are you? T1: Hi owe tour? T2: Hi owe tart? 3. My name is Ynes. T1: My nert T2: Nines ert. 4. I need help. T1: My niners apartments. T2: My nine apartments. 5. I'm hungry. T1: Mine a none-is. T2: Mine dunion. 6. I'm thirsty. T1: Mine abundon. 7. I need to use the toilet. T1: I need abikalon colleeninder. Reading Comprehension: Goal #1: The patient will identify the written word in a field of 2, given an auditory model with 80% accuracy. 03/11: Session 2- Patient identifies written words in a field of 2, given an auditory model with 81%accuracy. 03/12: Session 2- Patient identifies written words in a field of 2, given an auditory model with 50%accuracy. 03/16: Session 2- Patient identifies written words in a field of 2, given an auditory model with 67%accuracy. 03/18: Session 1: Patient identified written words in a field of 2 (presented vertically) with 60% accuracy (LARK word cards). Goal #2: The patient will identify the written word to match a given object or picture with 80% accuracy in a field of 3 (presented in a vertical orientation). 03/12: Session 1- Patient identifies the written word from a field of 3, given a picture of an object, with 53% accuracy. 03/14: Session 2- Attempted but could not complete d/t patient complaining of not being able to see stimuli d/t them being blurry. 03/15: 1st session: Patient was given a pictured object/item and then presented with three words, written by clinician in a vertical presentation and held upright for her viewing. She then used the picture to 'underline' the matching written word. She independently manipulated the picture to aid hervision. Word to picture match (f of 2 words), presented vertically: 100% accuracy 1. 13 6. 13 2. 15 7. / 3. 13 8. / 4. 15 9. / 5. 13 10. / Word to picture match (f of 3 words), presented vertically: 83% accuracy 1. 6 6. 15 2. 13 7. / 3. 15 8. / 4. 13 9. / 5. 15 10. / 03/16: Session 2- Probe: Patient identifies written 2-3 word phrases from a field of 2, given a picture of an object with 50% accuracy. 03/18: Session 1: Word to picture (field of 3 words), presented vertically: 07/04 at 80% Written Expression: Goal #1: The patient will write functional words and short phrases related to personal information (e.g., name, address, date of ) with 90% accuracy given mod verbal/visual cues. 03/09: Session 2- Patient writes functional words and short phrases related to personal information.See results below: Name: 100% accuracy Address: Patient does not provide street number, street name, or apartment number. She did write inapartment number once clinician wrote in the street number and street name. She got 100% accuracy for city and state. Phone Number: 100% accuracy Occupation: Unable to complete. 03/12: Session 1- Patient writes functional words and short phrases related to personal information.See results below: Name: 100% accuracy Address: 100% accuracy following a self-correction Phone Number: 100% accuracy Occupation: 100% accuracy following request for clarification and mod cues from the clinician 03/15: 2nd session: Patient copied her first and last name accurately and independently. Probe: Patient presented with a pictured object/item and provided it's label verbally. She was asked to write the name of the object/item. Initial perseveration on the letter of her first name, however she recognized this error and accurately self corrected to write the first 2 letters of the word 'dog' (accurate for picture). Given two written foils of the accurate spelling, she quickly and accurately identified the correct spelling (and did so with 100% accuracy subsequently). Trials were continued: 1. 12/MC 2. 12/MC 3. 8/MC 4. 15* 5. 12 given initial letter 12 = partially correct spelling which most often included initial 2 letters of the word being written accurately MC = successful identification of the spelling given multiple choice *spelled aloud accurately, otherwise spelling aloud characterized by jargon letters Augmentative Communication New Goal #1: The patient will generate gestures representing basic needs with 80% accuracy in response to auditory or visual instruction. 03/19 Session 1: Patient generated gestures independently with photos in 6/10 pictures with 60% accuracy (hat, phone, wells, wrist watch, scissors and egg) PATIENT/FAMILY EDUCATION: Patient/Family Education: Patient/family education was provided today including: rehab goals and questions were addressed. Topic: Patient/Family education and training was completed today including: the role of Speech-Language Pathology aphasia questions were addressed Learner: patient Method of Education: Verbal Barriers to Learning/Education: fatigue, headache pain, and presence of language impairment Patient: needs further instruction and education Family: No family present. Patient/Family Goals: Patient states I want to get better. Team Communication: Conversation with patient's OT who is suspecting a right homonymous hemianopsia ?? Assessment /CLINICAL IMPRESSIONS: Ynes White is a female 50 y.o. 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 It should be noted that patient went to [facility] for head CT and abdominal/ pelvis CT secondary to severe headaches and stomach ache on 03/18. Today during first session Ynes demonstrated improved comprehension of 1-step contextual directions with supports, increased reliability of yes/no response given simple noncontextual information. Patient also demonstrated improved verbal expression for automatic sequencing (counting and days of the week).Confrontation naming remains severely impaired however patient independently gestured appropriately with 60% of items presented. New AAC gesture goal written. Patient politely declined second afternoon session today secondary to severe headache. Nursing notified. Reading at the contextual single word level in a field of 3 continues to be a strength which shouldbe utilized to maximize her gains across all therapies. Patient continues to benefit from a Supported Conversation for Adults with Aphasia (SCA) approach. Written iInformation regarding SCA has been posted in Ynes's room for her staff members to review and a copy has been left her in room to provide to her family members. Ynes remains appropriate for 30 min BID sessions for aphasia intervention based on her level of fatigue and headache pain. Ynes White currently presents with severe expressive and receptive aphasia, most consistent with Wernicke's type but with some deviation from typical Wernicke's type presentation. Patient appears to be able to follow some basic 1-step commands effectively provided context, models, slow auditory presentation of information, and tactile cues as needed. Repetition, object naming, word fluency,sentence completion, and responsive speech are all impaired. Ynes demonstrates a favorable response to use of gestures to assist with her auditory comprehension. Expressive language is characterized as fluent but mostly consists of word salad with many instances of jargon, neologisms, and paraphasias with occasional moments of intelligible discourse scattered throughout. Ynes's discourse could also be described as tangential and perseverative. She attempts to utilize gestures to augmenther expressive language, but is not always successful. She is also demonstrating breakdowns in reading comprehension at the short sentence level and significant deficits in written expression at the word level, compounded by impaired auditory comprehension preventing writing to dictation and impaired naming preventing written naming. These deficits impact the patient's ability to functionally comm unicate her wants, needs, and ideas and hold conversation. She presents with severe impairments in reading comprehension, however, she demonstrates some success with reading comprehension at the wordlevel, which appears to be a relative strength compared to her auditory comprehension. She exhibits significant breakdown in reading comprehension at the short sentence level. Ynes also demonstrates significant deficits in written expression at the single word level however this appears to be improving and her awareness of these errors appears better than her awareness of errors in verbal expression. She also demonstrates relative strength in copying words and sentences, as well as writing numbers. It has been determined that the patient demonstrates deficits that impact functioning in daily activities and hinder participation in life situations.??Patient currently requires assistance from others to communicate basic wants and needs and direct her medical care. Pt will continue to benefit from her needs being anticipated and simplified information presented to her. Information should be repeated and said in different ways, and augmented with pictures and gestures. The patient is demonstrating strengths in motivation and some intact basic expressive language skills which should be utilized during the patient's plan of care to maximize gains. Contextual factors that may impact the patient's ability to progress toward rehab goals include: severity of language impairment, need for physical assistance, tolerance level for therapy, and pain. Based on patient's tolerance level, it is recommended that patient participate in 30 minute BID sessions initially and build toward 60 minute sessions as tolerated. Given patient's age, independence prior to admission, and social/occupational demands, she would benefit from intensive ANESTHESIOLOGY PHYSICIAN ASSISTANT intervention. Based on the patient's rehab potential, motivation, prior level of function, and the contextual factors, the patient's prognosis is considered good. It is anticip ated that the patient will make functional gains in expressive and receptive language skills with intensive skilled 1:1 speech language pathology services in the inpatient rehabilitation setting. Functional Communication Measures ([place] [employer], 2002). The Functional Communication Measures (FCM???s) are a series of 7 point rating scales, ranging fromleast functional (Level 1) to most functional (Level 7). They have been developed by [employer] to describe different aspects of patient???s functional communication and swallowing abilities over the course of ANESTHESIOLOGY PHYSICIAN ASSISTANT intervention. ?? Spoken Language Comprehension Level 2: With consistent, maximal cues, the individual is able to follow simple directions, respond to simple yes/no questions in context, and respond to simple words orphrases related to personal needs. Spoken Language Expression Level 3: The communication partner must assume responsibility for structuring the communication exchange, and with consistent and moderate cueing, the individual can produce words and phrases that are appropriate and meaningful in context. Reading Level 3: The individual reads single letters and common words, and with consistent moderatecueing, can read some words that are less familiar, longer, and more complex. Writing Level 2: The individual writes single letters and common words with consistent maximal cueing. ?? GOALS: Psychiatric Nurse Goals: Projected Functional Communication Measures at discharge: Spoken Language Comprehension Level 4: Individual consistently responds accurately to simple yes/noquestions and occasionally follows simple directions without cues. Moderate contextual support is usually needed to understand complex sentences/messages. The individual is able to understand limited conversations about routine daily activities with familiar communication partners. Spoken Language Expression Level 4: The individual is successfully able to initiate communication using spoken language in simple, structured conversations in routine daily activities with familiar communication partners. The individual usually requires moderate cueing, but is able to demonstrate use of simple sentences (i.e., semantics, syntax, and morphology) and rarely uses complex sentences/messages. Reading Level 4: The individual reads words and phrases related to routine daily activities, and words that are less familiar, longer, and more complex. The individual usually requires moderate cueing to read sentences of approximately 5-7 words. Writing Level 3: The individual writes single letters and common words, and with consistent moderate cueing, can write some words that are less familiar, longer, and more complex. Short Term Goals: Auditory Comprehension: Goal #1: Patient will identify objects in a visual field of 4-6 with >80% accuracy provided minimal cues from the clinician and repetitions for fewer than 50% of trials. Goal #2: Patient will answer simple yes/no questions immediately after review with >70% accuracyprovided moderate cues for attention and initiation. Goal #3: Patient will follow simple 1-step commands related to functional environment with >70% accuracy provided moderate verbal/tactile/visual cues in order to increase functional integration into environment. ?? Expressive Language: Goal #1: Patient will recite automatic speech tasks given moderate cues with >70% accuracy. Goal #2: Patient will name objects (real or pictured) to confrontation with >50% accuracy provided maximum verbal cues. Goal #3: Patient will repeat 1-2 syllable functional words with >70% accuracy provided a visual model by the clinician. ?? Reading Comprehension: Goal #1: The patient will identify the written word in a field of 2, given an auditory model with 80% accuracy. Goal #2: The patient will identify the written word to match a given object or picture with 80% accuracy in a field of 3 (presented in a vertical orientation). Written Expression: Goal #1: The patient will write functional words and short phrases related to personal information (e.g., name, address, date of ) with 90% accuracy given mod verbal/visual cues. Augmentative Communication New Goal #1: The patient will generate gestures representing basic needs with 80% accuracy in response to auditory or visual instruction. ?? Plan RECOMMENDATIONS: Patient will continue to benefit for further ANESTHESIOLOGY PHYSICIAN ASSISTANT intervention in this setting to address aphasia management and intervention needs. ?? Recommend inpatient rehabilitation ANESTHESIOLOGY PHYSICIAN ASSISTANT services: Patient will be seen for a minimum of 5x/week @ 30minutes BID due to current tolerance level. ?? Communication Access and Shared Decision Making Recommendations Please support communication access and shared decision making ability by doing the following: ?? Support Comprehension: ?? Have a pen and paper ready when communicating. ?? Please present information slowly and simplify. Augment with drawings, diagrams, gestures and pointing. ?? Ask one question at a time. ?? Have only one person speak at a time. ?? Environmental modifications:? Simplify the environment: ?? Carryover/Discharge??and Healthcare Decision making considerations ?? Will need family support for the successful carryover of discharge recommendations. ?? Currently comprehension of non-contextual information is a barrier Cecelia Azevedo MS, CCC-ANESTHESIOLOGY PHYSICIAN ASSISTANT Speech Language Pathologist Pager #[phone] (Saturday - Saturday [phone]) Pager # [phone] ([facility] ANESTHESIOLOGY PHYSICIAN ASSISTANT Department) CECELIA AZEVEDO MS CCC-ANESTHESIOLOGY PHYSICIAN ASSISTANT 03/19/2020 10:01 * Blanca Llamas RN - 03/18/2020 1616 EDT To ED now for Head CT; headache continues since admit, price not participate in OT this afternoon. Pt states 10 pain at crani site L Ambulence transfer 1617. * Martha Esparza MD - 03/18/2020 1503 EDT Physiatry Progress Note Admit Date: 03/02/2020 Hospital Day: LOS: 16 days Date of Service: 03/18/2020 Chief Complaint: Left temporoparietal hemorrhage status post decompressive craniectomy, setting of central venous thrombosis 02/14/2020 Subjective: Language improved today. Reports intermittent headache and abdominal pain, well controlled with dilaudid. Denies chest pain, shortness of breath, nausea/vomiting. Improving PO intake per RN. Current Facility-Administered Medications: acetaminophen (TYLENOL) tablet 650 mg oral Q4H PRN aspirin chewable tablet 81 mg oral DAILY bisacodyL (DULCOLAX) suppository 10 mg rectal Q48H PRN calcium carbonate (TUMS) 200 mg calcium (500 mg) per chewable tablet tablet,chewable 1 Tab oral QIDPRN docusate sodium (COLACE) capsule 100 mg oral BID PRN enoxaparin (LOVENOX) injection 80 mg subcutaneous Q12H guaiFENesin tablet 200 mg oral Q6H PRN HYDROmorphone (DILAUDID) tablet 2-4 mg oral Q4H PRN melatonin tablet 3 mg oral QHS multivitamin (FLINTSTONES) chewable tablet 1 Tab oral DAILY nicotine (NICODERM CQ) 7 mg/24 hr patch 1 Patch transdermal Q24H ondansetron (ZOFRAN-ODT) disintegrating tablet 4 mg oral Q4H PRN pantoprazole (PROTONIX) tablet 40 mg oral DAILY papain-alpha amylase-cellulase (CLOG ZAPPER) 2-5 mL feeding tube PRN QUEtiapine (SEROQUEL) tablet 12.5 mg oral QHS senna (SENOKOT) tablet 1 Tab oral BID PRN Objective/Physical Exam: VS: Patient Vitals for the past 8 hrs: BP Pulse 03/18/20 0842 (!) 82/56 94 Pain: Patient Vitals for the past 8 hrs: Numeric Pain Level (Scale 1-10) Asleep 03/18/20 0730 -- Reassessed, sleeping comfortably, RR WNL. Weight: Weight : 84.2 kg (185 lb 11.2 oz) Exam: Gen: Alert, pleasant, no distress HEENT: Left decompressive hemicraniectomy site slightly sunken. No clear visual field cut. No facial droop. Pharynx is clear. Neck supple. Mucosal membranes are moist Skin: Crani incision site healing well Cardiac: Cor RRR Pulmonary: CTAB Abdomen: soft, nontender to palpation, PEG site clean and dry Musculoskeletal: no joint tenderness, deformity or swelling, no muscular tenderness noted, full range of motion without pain Neuro: Expressive greater than receptive aphasia Affect: Pleasant Motor: No focal motor weakness Tone: normal Sensation: No clear focal sensory loss Cerebellar: no tremors Labs: I have personally reviewed CBC: Lab Results Component Value Date WBC 6.49 03/17/2020 RBC 4.02 03/17/2020 HGB 12.7 03/17/2020 HCT 37.5 03/17/2020 MCV 93 03/17/2020 MCH 31.6 03/17/2020 MCHC 33.9 03/17/2020 PLT 221 03/17/2020 NEUTROABS 5.03 02/14/2020 BMP: Lab Results Component Value Date NA 133 (L) 03/17/2020 K 4.9 03/17/2020 CL 98 03/17/2020 CO2 24 03/17/2020 BUN 26 03/07/2020 CREATININE 1.69 (H) 03/18/2020 CALCIUM 8.8 02/14/2020 MG 1.7 03/02/2020 PHOS 4.6 (H) 03/07/2020 LABALBU 3.9 05/07/2001 LMWH 1.92 (1.06 03/10/2020) Assessment/Problems: Patient Active Problem List Diagnosis Date Noted ??? *(H)Left-sided nontraumatic intracerebral hemorrhage ([facility]-CMS) 03/02/2020 Status post decompressive hemicraniectomy ??? Brain herniation (HCC-CMS) 02/17/2020 Priority: Medium ??? Cerebral edema (HCC-CMS) 02/17/2020 Priority: Medium ??? 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 (H)Cerebral venous thrombosis 02/14/2020 Priority: Medium ??? Encounter for insertion or removal of intrauterine contraceptive device 02/12/2020 Priority: Medium ??? Nicotine dependence, unspecified, uncomplicated 02/12/2020 Priority: Medium ??? Perimenopausal 02/12/2020 Priority: Medium ??? Post concussion syndrome 02/12/2020 Priority: Medium ??? Tobacco abuse 12/02/2012 Priority: Medium ??? Chronic low back pain 10/13/2012 Priority: Medium ??? Back pain 09/25/2012 Priority: Medium Plan: 1. Left frontal intraparenchymal hemorrhage: Status post decompressive craniectomy. Patient with residual mild right-sided weakness, significant expressive and receptive aphasia, dysphagia. Full PT, OT, ANESTHESIOLOGY PHYSICIAN ASSISTANT to address mobility, self care communication and swallowing function. 24 hour rehab nursing for self care deficits. Helmet on when out of bed. Diet advanced to regular consistency. 2. 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 Evidence of left IJ, sigmoid and transverse sinuses as well. Now on therapeutic dose Lovenox. Low molecular weight heparin level was originally subtherapeutic, lovenox increased to 80mg BID, now supratherapeutic at 1.92. Will hold lovenox and repeat level in AM. Discussed with medicine, hematology. 3. Right upper lobe pulmonary embolism, left upper extremity DVT: Now on therapeutic dose Lovenox, see above. 4. History of anxiety/depression: Monitor clinically. Start to taper at bedtime Seroquel. Consider medical psychology consultation as language deficits allow. She has listed allergies to citalopram and duloxetine. 5. Nutrition: PEG tube placed 02/18/2020. Goal is to keep the tube in place for at least 6 weeks after placement, as reviewed with Dr. Branch from acute care surgery. Diet is currently regular consistency. 6. Hypertension: Metoprolol held for low BP yesterday and today; will monitor. 7. Renal: Creatinine further increased to 1.69. Will give IVF and recheck Cr in AM. Addendum: Pt refused therapies this afternoon, reports worsening headache. Given supratherapeutic lovenox and headache, will request repeat head CT to exclude new hemorrhage. Neurosurgery and Emergency Department contacted. Martha Esparza MD 03/18/2020 15:03 * Alicia Gabriel RD - 03/18/2020 1246 EDT Nutrition Assessment Note: [facility] Alicia Gabriel RD, RD, CD ([facility] Dietitian Phone [phone]) Patient Name: [facility] Admission Date: 03/02/2020 Hospitalization at [facility]: 02/14/20 Rehab Admission Dx: Left-sided nontraumatic intracerebral hemorrhage (HCC-CMS) Reason for Visit: Follow Up BACKGROUND DATA Clinical Summary: Ynes White is a 50 y.o. female admitted to acute rehab with left temporoparietal hemorrhage status post decompressive craniectomy; s/p PEG placement 02/18/20 ?? Past Medical History: Diagnosis Date ??? Left-sided nontraumatic intracerebral hemorrhage (HCC-CMS) 03/02/2020 Status post decompressive hemicraniectomy Interview/Subjective: Spoke with RN, who reports that patient loves the chocolate Boost over ice and will easily drink 2-3 per day. Her po intake of solid foods is variable. She seems to do better when small portions are offered. Some of her favorite menu options appear to be banana bread, maple yogurt, egg salad and tortellini with sauce. Current Nutrition Orders: DIET REGULAR Oral supplement: Boost Plus chocolate Enteral: Free water 120 ml every 8 hours via PEG; TF dc'd 03/10/20 Estimated Nutrition Intake: 2-3 Boost Plus daily; ~50 % of small meals Nutrition-Focused Physical Findings: GI: last BM 03/14/20 Skin: surgical laceration/incision Edema: none Anthropometrics: Height: 170.2 cm (67) Wt Readings from Last 6 Encounters: 03/18/20 84.2 kg (185 lb 11.2 oz) 03/02/20 89.9 kg (198 lb 1.6 oz) 02/14/20 Weight-98.5 kg (217 lbs) BMI: Body mass index is 29.08 kg/m??. Weight Change: weight loss of 31 lbs over 2.5 weeks, ? Accuracy of weight readings Nutrition-Related Lab Values of Concern: Lab Results Component Value Date/Time HGB 12.7 03/17/2020 05:49 HCT 37.5 03/17/2020 05:49 WBC 6.49 03/17/2020 05:49 NA 133 (L) 03/17/2020 05:49 K 4.9 03/17/2020 05:49 CO2 24 03/17/2020 05:49 CL 98 03/17/2020 05:49 BUN 26 03/07/2020 06:50 CREATININE 1.11 (H) 03/17/2020 05:49 HGBA1C 5.4 02/14/2020 17:48 PHOS 4.6 (H) 03/07/2020 06:50 MG 1.7 03/02/2020 06:12 TRIG 176 02/18/2020 05:44 ALT 17 05/07/2001 11:00 AST 15 05/07/2001 11:00 ALKPHOS 60 05/07/2001 11:00 TBIL 0.3 05/07/2001 11:00 Nutrition-Related Medications: Current Facility-Administered Medications: acetaminophen (TYLENOL) tablet 650 mg oral Q4H PRN aspirin chewable tablet 81 mg oral DAILY bisacodyL (DULCOLAX) suppository 10 mg rectal Q48H PRN calcium carbonate (TUMS) 200 mg calcium (500 mg) per chewable tablet tablet,chewable 1 Tab oral QIDPRN docusate sodium (COLACE) capsule 100 mg oral BID PRN enoxaparin (LOVENOX) injection 80 mg subcutaneous Q12H guaiFENesin tablet 200 mg oral Q6H PRN HYDROmorphone (DILAUDID) tablet 2-4 mg oral Q4H PRN melatonin tablet 3 mg oral QHS multivitamin (FLINTSTONES) chewable tablet 1 Tab oral DAILY nicotine (NICODERM CQ) 7 mg/24 hr patch 1 Patch transdermal Q24H ondansetron (ZOFRAN-ODT) disintegrating tablet 4 mg oral Q4H PRN pantoprazole (PROTONIX) tablet 40 mg oral DAILY papain-alpha amylase-cellulase (CLOG ZAPPER) 2-5 mL feeding tube PRN QUEtiapine (SEROQUEL) tablet 12.5 mg oral QHS senna (SENOKOT) tablet 1 Tab oral BID PRN ASSESSMENT Patient with variable po intake. Overall she is eating ~50 % of small meals with protein sources. She is taking Boost Plus as a source of supplemental nutrition. Will relay food preferences and need for small portions to kitchen staff. Weight has stabilized recently. Mild hyponatremia noted. Estimated Daily Nutritional Needs:??using??adjusted??weight of 73??kg 25-30??(using 73??kg) = 5330-0047??kcals/day 1.2??g/kg protein (using 73??kg) = 88??g protein/day 25??mL/kg fluid (using 73??kg) = 1825??mL fluid/day Nutrition Risk Level: Moderate (2) MEDICAL NUTRITION THERAPY PLAN & RECOMMENDATIONS -Chocolate Boost Plus with meals -Will send small portions -Monitor po intake, lytes, weight and stool pattern -RD following * Maria Victoria Hernandez MD - 03/18/2020 1233 EDT MEDICINE FOLLOW-UP Date of service: 03/18/2020 PCP: Alejandrina Carrillo CHIEF COMPLAINT: Hypercoagulable state of unclear origin, cerebral venous thrombosis presenting as left frontal intraparenchymal hemorrhage, incidental PE in RUL and UE DVT, worsening hemorrhage in the setting of therapeutic anticoagulation SUBJECTIVE: Isabell looks pretty good this am. Ambulating in the halls - OT noted improved language and stringing things together this am as well. BP still riding a little low, but has no symptoms. Will continue to encourage isotonic fluids, po, etc LMWH level pending due to bump in cr yesterday. No fevers, cough or dyspnea. OBJECTIVE: Patient Vitals for the past 48 hrs: BP Pulse Heart Rate Resp Temp 03/18/20 0842 (!) 82/56 94 -- -- -- 03/18/20 0643 103/53 90 -- 16 35.8 ??C (96.4 ??F) 03/17/20 0800 97/54 (!) 106 -- 20 -- 03/17/20 0656 108/51 90 -- 14 36.7 ??C (98.1 ??F) 03/16/20 2100 91/54 84 -- -- -- 04/22/20 1334 (!) 88/59 -- 95 BPM -- -- Vital signs are stable and the patient is afebrile. Physical exam is stable No distress. Respirations even, unlabored. Motor/sensory exam stable. MEDICATIONS: aspirin chewable 81 mg oral DAILY enoxaparin 80 mg subcutaneous Q12H melatonin 3 mg oral QHS multivitamin 1 Tab oral DAILY nicotine 1 Patch transdermal Q24H pantoprazole 40 mg oral DAILY QUEtiapine 12.5 mg oral QHS acetaminophen 650 mg Q4H PRN bisacodyL 10 mg Q48H PRN calcium carbonate 1 Tab QID PRN docusate sodium 100 mg BID PRN guaiFENesin 200 mg Q6H PRN HYDROmorphone 2-4 mg Q4H PRN ondansetron 4 mg Q4H PRN papain-alpha amylase-cellulase 2-5 mL PRN senna 1 Tab BID PRN LABS: Last labs: Labs: I have personally reviewed CBC: Lab Results Component Value Date WBC 6.49 03/17/2020 RBC 4.02 03/17/2020 HGB 12.7 03/17/2020 HCT 37.5 03/17/2020 MCV 93 03/17/2020 MCH 31.6 03/17/2020 MCHC 33.9 03/17/2020 PLT 221 03/17/2020 NEUTROABS 5.03 02/14/2020 BMP: Lab Results Component Value Date NA 133 (L) 03/17/2020 K 4.9 03/17/2020 CL 98 03/17/2020 CO2 24 03/17/2020 BUN 26 03/07/2020 CREATININE 1.11 (H) 03/17/2020 CALCIUM 8.8 02/14/2020 MG 1.7 03/02/2020 PHOS 4.6 (H) 03/07/2020 LABALBU 3.9 05/07/2001 ASSESSMENT/PLAN: 1. 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 Suspect underlying hypercoagulable state. PT/OT/ANESTHESIOLOGY PHYSICIAN ASSISTANT Falls precautions Delirium prevention measures Aspiration precautions Dysphagia diet: 4 with thins 2. Hypercoagulable disorder NOS. Venous dural thrombosis, PE Enox dosing decreased to 80 bid based on LMWH levels LMWH level today Will need OP heme clinic 3. Hypertension - now with relative hypotension Now off both metoprolol 25 bid + lisinopril 20 Please encourage her to drink fluids with solute - things like milk, chocolate milk, ensure, gatorade, boost, etc If BP low tomorrow, may have to entertain small amount of IVF - bump in cr makes me think maybe volume down? Will recheck lytes and cr tomorrow - ordered The patient is medically stable and tolerating the present level of the rehab program. The patient is to continue in the rehabilitation program. Maria Victoria Hernandez MD * Aida Goodman DPT - 03/18/2020 0911 EDT [facility] Physical Therapy Encounter Note Date of Service: 03/18/2020 , Activity: Level of risk of Harm B, Activity as tolerated, , Additional Precautions Information: LBone flap precautions (helmet OOB), R Rooke Boot in bed, PEG tube SUBJECTIVE: Pt states she just needs to rest for a minute OBJECTIVE: Start time: 1030 Total Therapy Minutes: 30 minute(s) Interventions completed today: Vital Signs: Pre: 87/59, 110 Post: 89/54, HR 112 Gait: Ambulation for endurance with RW and cuing for path finding, supervision 300' x 2, cuing for upright posture and to relax her shoulders Neuromuscular re-education: all with contact minimal assist x 40' x 2 reps each with seated rests between exercises. ?? Walking on toes ?? Walking on heels ?? Cross over stepping ?? High stepping ?? Side stepping with mini squats 2nd Session Time: Start time: 1430 Total Therapy Minutes: 30 minutes Therapeutic Exercises: with rests between exercises Supine SLR Supine SAQs Side lying hip abduction Figure 4 stretch x 30 seconds Hamstring stretch with sheet x 30 seconds Gastroc stretch x 30 seconds Patient/Family Education: The benefits of physical therapy ASSESSMENT:Pt tolerated 1st session well with focus on neuromuscular re-ed and gait for endurance. Pt reported feeling over stimulated in the afternoon and had difficulty tolerating bed level therex requiring numerous rests due to feeling anxious. PLAN: ?? Gait without a device for endurance and strength ?? Stairs for endurance and leg strength ?? Obstacle negotiation, toe taps, single-limb stance variations for balance ?? Closed chain exercises for leg strength. ?? Path finding, Neuro re-ed Contact information: Pager: [phone] Aida Goodman DPT 03/18/2020 9:11 * Cecelia Azevedo MS [facility]-ANESTHESIOLOGY PHYSICIAN ASSISTANT - 03/18/2020 3515 EDT Speech-Language Pathology Daily and Current Progress Note ANESTHESIOLOGY PHYSICIAN ASSISTANT Diagnosis: Aphasia Medical Diagnosis: Cerebral venous thrombosis and resultant intraparenchymal hemorrhage in the leftfrontotemporal area Date of Onset: 02/14/20 Date of Referral: 03/02/20 Subjective/Objective SUBJECTIVE: I get very tired, it's too much. My stomach hurts (holding on too head assuming she met headache) the medicine will take care of them. OBJECTIVE: Date of Service: 03/18/2020 Session One: Start Time: 0930 Total Therapy minutes: 30 minute(s) comm-cog tx Session Two: Patient did not work directly with ANESTHESIOLOGY PHYSICIAN ASSISTANT. Patient was initially asleep in bed when ANESTHESIOLOGY PHYSICIAN ASSISTANT walked into room. Patient stated I don't feel good today. Consulted with nursing who reports that patient has had a difficult day and has had a headache and repeated blood draws. Patient wanted to wait to eat her lunch. Patient requesting to rest again after she completed her toileting. I don't think I can do it today. Current Treatment Objectives: Auditory Comprehension: Goal #1: Patient will identify objects in a visual field of 4-6 with >80% accuracy provided minimal cues from the clinician and repetitions for fewer than 50% of trials. 03/11: Session 2- Patient identifies objects in a visual field of 4 with 100% accuracy provided written word and auditory presentation of the word. Patient identifies objects in a visual field of 6 with 80% accuracy provided written word and auditory presentation of the word. Patient requires significant repetition of each item provided field of 6 and encouragement as she was hesitant to answer frequently stating that it made her nervous to have more than 4 items to choose from. 03/12: Session 2- Patient identifies objects in a visual field of 4 with 80% accuracy provided written word and auditory presentation of the word. 03/14: Session 1- Patient identifies objects in a visual field of 4 with 70% accuracy provided written word and auditory presentation of the word. 03/15: 2nd session: Object ID (f of 4) given label and function: 88% accuracy 1. 15 6. 15 2. 15 7. 8 3. 15 8. 13 4. 15 9. / 5. 15 10. / Object ID (f of 4) given label ONLY: 50% accuracy 1. 13 6. 6 2. 15 7. 6 3. 6 8. 6 4. 13 9. 15 5. 13 10. 6 03/16: Session 1- Patient identifies objects in a visual field of 4 with 80% accuracy provided written word and auditory presentation of the word. Patient requires repetition of ~50% of items providedfield of 4. 03/17: Session 1- Patient identifies objects in a visual field of 6 with 80% accuracy provided written word and auditory presentation of the word. Patient requires repetition of ~25% of items providedfield of 4. Goal #2: Patient will answer simple yes/no questions immediately after review with >70% accuracyprovided moderate cues for attention and initiation. 03/07: Session 1: Patient responded to Y/N questions with jargon and some intelligible word related to questions (e.g., It was my father's name in response to Is your last name 'Cindy?'). 03/08: Session 1- Patient responds to simple Y/N questions with 30% accuracy. Errorless learning wasattempted with mixed success. 1. 6- Error: Inaccurate attempt at the task item 2. 6- Error: Inaccurate attempt at the task item 3. 6- Error: Inaccurate attempt at the task item 4. 9- Repeated: Accurate, after instructions are repeated (errorless learning utilized) 5. 6- Error: Inaccurate attempt at the task item (errorless learning attempted) 6. 9- Repeated: Accurate, after instructions are repeated (errorless learning utilized) 7. 6- Error: Inaccurate attempt at the task item (errorless learning attempted) 8. 6- Error: Inaccurate attempt at the task item (errorless learning attempted) 9. 9- Repeated: Accurate, after instructions are repeated (errorless learning utilized) 10. 6- Error: Inaccurate attempt at the task item 4/15: Session 1- Patient responds to simple Y/N questions with 60% accuracy. Today patient benefitsfrom written yes/no board and gestures for prompting. 1. 6- Error: Inaccurate attempt at the task item; 9- repeated 2. 9- Repeated: Accurate, after instructions are repeated 3. 15- Complete: accurate, responsive, complete, prompt, efficient 4. 6- Error: Inaccurate attempt at the task item 5. 13- Complete-delayed: Accurate, responsive, complete or complex, delayed 6. 15- Complete: accurate, responsive, complete, prompt, efficient 7. 13- Complete-delayed: Accurate, responsive, complete or complex, delayed 8. 13- Complete-delayed: Accurate, responsive, complete or complex, delayed 9. 13- Complete-delayed: Accurate, responsive, complete or complex, delayed 10. 6- Error: Inaccurate attempt at the task item 4/16: Session 1- Patient responds to simple Y/N questions with 20% accuracy. Today patient benefitsfrom written yes/no board and gestures for prompting. 1. 6- Error: Inaccurate attempt at the task item 2. 6- Error: Inaccurate attempt at the task item 3. 8- Cued: Accurate, after cue is given 4. 15- Complete: accurate, responsive, complete, prompt, efficient 5. 6- Error: Inaccurate attempt at the task item 6. 6- Error: Inaccurate attempt at the task item 7. 6- Error: Inaccurate attempt at the task item 8. 15- Complete: accurate, responsive, complete, prompt, efficient 9. 6- Error: Inaccurate attempt at the task item 10. 6- Error: Inaccurate attempt at the task item 4/17: Session 1- Patient responds to simple Y/N questions with 50% accuracy. Today patient benefitsfrom written yes/no board and gestures for prompting. 1. 9- Repeated: Accurate, after instructions are repeated 2. 15- Complete: accurate, responsive, complete, prompt, efficient 3. 15- Complete: accurate, responsive, complete, prompt, efficient 4. 6- Error: Inaccurate attempt at the task item 5. 8- Cued: Accurate, after cue is given 6. 6- Error: Inaccurate attempt at the task item 7. 6- Error: Inaccurate attempt at the task item 8. 15- Complete: accurate, responsive, complete, prompt, efficient 9. 6- Error: Inaccurate attempt at the task item 10. 15- Complete: accurate, responsive, complete, prompt, efficient 03/12: Session 2- Patient responds to simple Y/N questions with 60% accuracy with credit given for answers that were correct following a delay or repetition of the stimulus. Today patient benefits from written yes/no board and gestures for prompting. 1. 13- Complete-delayed: Accurate, responsive, complete or complex, delayed 2. 6- Error: Inaccurate attempt at the task item 3. 9- Repeated: Accurate, after instructions are repeated 4. 15- Complete: accurate, responsive, complete, prompt, efficient 5. 13- Complete-delayed: Accurate, responsive, complete or complex, delayed 6. 6- Error: Inaccurate attempt at the task item 7. 6- Error: Inaccurate attempt at the task item 8. 15- Complete: accurate, responsive, complete, prompt, efficient 9. 6- Error: Inaccurate attempt at the task item 10. 15- Complete: accurate, responsive, complete, prompt, efficient 03/14: Session 2- Patient responds to simple Y/N questions with 60% accuracy with credit given for answers that were correct following a delay or repetition of the stimulus. Today patient benefits from written yes/no board and gestures for prompting. 1. 6- Error: Inaccurate attempt at the task item 2. 15- Complete: accurate, responsive, complete, prompt, efficient 3. 6- Error: Inaccurate attempt at the task item 4. 13- Complete-delayed: Accurate, responsive, complete or complex, delayed 5. 2- Attention: No response, but patient attends to the guido 6. 13- Complete-delayed: Accurate, responsive, complete or complex, delayed 7. 15- Complete: accurate, responsive, complete, prompt, efficient 8. 10- Corrected: Accurate, self-corrected 9. 15- Complete: accurate, responsive, complete, prompt, efficient 10. 15- Complete: accurate, responsive, complete, prompt, efficient 03/16: Session 1 - Patient responds to simple Y/N questions with 80% accuracy with credit given for answers that were correct following a delay or repetition of the stimulus. Today patient benefits from written yes/no board and gestures for prompting. 1. 9- Repeated: Accurate, after instructions are repeated 2. 13- Complete-delayed: Accurate, responsive, complete or complex, delayed 3. 13- Complete-delayed: Accurate, responsive, complete or complex, delayed 4. 6- Error: Inaccurate attempt at the task item 5. 13- Complete-delayed: Accurate, responsive, complete or complex, delayed 6. 15- Complete: accurate, responsive, complete, prompt, efficient 7. 15- Complete: accurate, responsive, complete, prompt, efficient 8. 10- Corrected: Accurate, self-corrected 9. 15- Complete: accurate, responsive, complete, prompt, efficient 10. 15- Complete: accurate, responsive, complete, prompt, efficient 03/17: Session 1 - Patient responds to simple Y/N questions with 80% accuracy with credit given for answers that were correct following a delay or repetition of the stimulus. Today patient benefits from written yes/no board and gestures for prompting. 1. 9- Repeated: Accurate, after instructions are repeated 2. 6- Error: Inaccurate attempt at the task item 3. 15- Complete: accurate, responsive, complete, prompt, efficient 4. 9- Repeated: Accurate, after instructions are repeated 5. 13- Complete-delayed: Accurate, responsive, complete or complex, delayed 6. 13- Complete-delayed: Accurate, responsive, complete or complex, delayed 7. 13- Complete-delayed: Accurate, responsive, complete or complex, delayed 8. 13- Complete-delayed: Accurate, responsive, complete or complex, delayed 9. 13- Complete-delayed: Accurate, responsive, complete or complex, delayed 10. 6- Error: Inaccurate attempt at the task item Goal #3: Patient will follow simple 1-step commands related to functional environment with >70% accuracy provided moderate verbal/tactile/visual cues in order to increase functional integration into environment. 15: Session 2- Patient follows simple 1-step commands related to environment with 0% accuracy independently. Accuracy increases to 90% accuracy following a model by the clinician with slowed auditory presentation of directions. 16: Session 1- Patient follows simple 1-step commands related to environment with 0% accuracy independently. Accuracy increases to 90% accuracy following a model by the clinician with slowed auditory presentation of directions. 03/12: Session 1- Patient follows simple 1-step commands related to environment with 0% accuracy independently. Accuracy increases to 62% accuracy following a model by the clinician with slowed auditory presentation of directions. 03/14: Session 2- Patient follows simple 1-step commands related to environment with 100% accuracy following a model by the clinician with slowed auditory presentation of directions. 03/15: / session: Patient followed 1 step commands in the context of therapy tasks today giveninitial demonstration. 03/16: Session 2- Patient follows simple 1-step commands related to environment with 90% accuracy following a model by the clinician with slowed auditory presentation of directions. 03/17: Session 1- Patient follows simple 1-step commands related to environment with 100% accuracy following a model by the clinician with slowed auditory presentation of directions. Patient completed1 of the commands independently without a model from the clinician today. 03/18: Session 1: Followed 2/10 simple 1 step commands independently. Patient followed ANESTHESIOLOGY PHYSICIAN ASSISTANT model with 100% accuracy. Expressive Language: Goal #1: Patient will recite automatic speech tasks given moderate cues with >70% accuracy. 03/08: Session 1- Patient recites automatic speech tasks with the clinician. See results below: 1-10: 100% accuracy following a model The Alphabet: Unable to perform in unison Months of the Years: Attempted to have patient repeat each month after the clinician: November, December, (jargon), (jargon), , June, April medication, June compation, sincation medication,ekaterina, French, alejandra Vigil, Liliana 03/09: Session 1- Patient recites automatic speech tasks with the clinician. See results below: 1-10: 100% accuracy following a starter cue one... The Alphabet: T1: A, me, S, d, 8, q, A, me, d, ec, q, g, h, eed, h ; T2: Patient was able to achieve 50% in unison with the clinician but eventually perseverated on w Days of the Week: Patient perseverated on w, k despite max cues, models, and attempts to perform in unison Session 2- Patient recites automatic speech tasks with the clinician. See results below: 1-10: 80% accuracy following a repetition of the instructions; 80% accuracy in trial 2 following a repetition of the instructions. The Alphabet: A, 7 you mean? following max cues and models Days of the Week: Patient perseverated on w, k despite max cues, models, and attempts to perform in unison 03/10: Session 1- Patient recites automatic speech tasks with the clinician. See results below: 1-10: 100% accuracy The Alphabet: a, q, q, jews, each, l, l, elf Days of the Week: w, q, w, q, w, q, l, q, l, q 03/12: Session 2- Patient recites automatic speech tasks with the clinician. See results below: 1-10: 90% accuracy The Alphabet: l, n, h, stomich, a, m, h, m, etch, is it etch? Days of the Week: elmen, elmen threemen, riley three hundred, h, h, eight? No, stomach 03/14: Session 2- Patient recites automatic speech tasks with the clinician. See results below: 1-10: 90% accuracy Days of the Week: feminal, lessons, lezimen... 03/16: Session 1- Patient recites automatic speech tasks with the clinician. See results below: 1-10: 0% accuracy Days of the Week: drama, bever, mener, sever... 03/17: Session 1- Patient recites automatic speech tasks with the clinician. See results below: 1-10: 100% accuracy Days of the Week: Saturday, Saturday, Wender, Thunder, Wender, Sender, Fender when repeating each day individually following a model by the clinician. 03/18: Session 1: Counting 1-10 Trial one: 04/03. Trial Two: 07/06 (Eight, Ninth, Tenth, Eleventh, Twelfth - Is that what you want? I got lost. Goal #2: Patient will name objects (real or pictured) to confrontation with >50% accuracy provided maximum verbal cues. Probe: naming an object from a fo2 multiple choice- 20% accuracy (patient struggling with repeatingthe words, producing neologisms or paraphasias) 03/15: session: Repeating name of pictured object (in spontaneous context) in the context of a written expression task: ~50% accuracy (with partial credit for spelling a word out loud accurately!) 1. 6 2. 6 3. 15 4. 15 5. 8* * spelled the word out loud correctly! 03/16: Session 1- Patient names real pictured objects to confrontation provided maximum cues (phonemic, semantic, cloze, repetition, etc.) with 0% accuracy. Target Response 1. Earth derb (max cues) 2. door dargis (max cues) 3. pants stargus (max cues) 4. boxing dargus (max cues) 5. taco targus (max cues) Goal #3: Patient will repeat 1-2 syllable functional words with >70% accuracy provided a visual model by the clinician. 03/09: Session 2- Patient repeats 1-2 syllable functional words with 10% accuracy provided a visual model by the clinician. For 60% of trials patient produced neologisms and for 30% of trials patient produced phonemic paraphasias. See results below: 2. 6- Error: Inaccurate attempt at the task item; neologism 3. 6- Error: Inaccurate attempt at the task item; neologism 4. 15- Complete: accurate, responsive, complete, prompt, efficient 5. 14- Distorted: accurate, responsive, complete or complex, prompt, distorted; phonemic paraphasia 6. 6- Error: Inaccurate attempt at the task item; neologism 7. 6- Error: Inaccurate attempt at the task item; neologism 8. 14- Distorted: accurate, responsive, complete or complex, prompt, distorted; phonemic paraphasia 9. 14- Distorted: accurate, responsive, complete or complex, prompt, distorted; phonemic paraphasia 10. 6- Error: Inaccurate attempt at the task item; neologism 03/10: Session 1- Patient repeats 1-2 syllable functional words with 30% accuracy provided a visual model by the clinician. For 70% of trials patient produced neologisms. See results below: 1. 8- Cued: Accurate, after cue is given; neologism for first few trials; required tactile and visual cues 2. 15- Complete: accurate, responsive, complete, prompt, efficient 3. 6- Error: Inaccurate attempt at the task item; neologism 4. 6- Error: Inaccurate attempt at the task item; neologism 5. 15- Complete: accurate, responsive, complete, prompt, efficient 6. 15- Complete: accurate, responsive, complete, prompt, efficient 7. 6- Error: Inaccurate attempt at the task item; neologism 8. 6- Error: Inaccurate attempt at the task item; neologism 9. 6- Error: Inaccurate attempt at the task item; neologism 10. 6- Error: Inaccurate attempt at the task item; neologism Session 2- Patient repeats 1-2 syllable functional words with 30% accuracy provided a visual model by the clinician. For 70% of trials patient produced neologisms. 03/11: Session 1- Patient repeats 1-2 syllable functional words with 0% accuracy provided a visual model by the clinician. See results below: Target Response 1. socks stomach 2. chair Stomach mesausen 3. finger megas megasarus 4. baby Lady mesasus 5. helmet helmamarier 6. Earth siroath 7. mandaen churchtons 8. pepper lymins 9. shorts short hundreds 10. sink [place] des[place]; sank; sank 03/12: Session 1- Patient repeats 1-2 syllable functional words with 50% accuracy provided a visual model by the clinician. See results below: Target Response Error Type 1. teeth clun neologism 2. golf nogolsh neologism 3. crown clanin neologism 4. rice rice - 5. money money - 6. horse horse - 7. doctor Stomach menesis Perseveration + neologism 8. legs Leg? that's it? leg - 9. wallet walwalleck Phonemic paraphasia 10. pizza pizza. I know that. - 03/14: Session 1- Patient repeats 1-2 syllable functional words with 30% accuracy provided a visual model by the clinician. Errors were typically phonemic paraphasias with the occasional neologism. See results below: Target Response Error Type 1. onion umion Phonemic paraphasia 2. chair air Phonemic paraphasia 3. zipper zipper - 4. chest shate neologism 5. boxing dockwis neologism 6. soldier soulmir Phonemic paraphasia 7. saw sawmich Neologism + perseveration 8. kitchen kitchen - 9. corn corn - 10. vacuum vactum Phonemic paraphasia Session 2- Patient repeats 1-2 syllable functional words with 10% accuracy provided a visual model by the clinician. Errors were typically phonemic paraphasias with the occasional neologism. See results below: Target Response Error Type 1. hat s- um, hat - 2. salad holad Phonemic paraphasia 3. chair Stomach attic Neologism + perseveration 4. bird Stomach umanick Neologism + perseveration 5. money kathya attic Phonemic paraphasia + neologism 6. hand hammock Phonemic paraphasia 7. rice dammish neologism 8. pool amicus neologism 9. glasses dimanick neologism 10. watch gamican neologism level Probe: Repeating functional phrases Target Response 1. Hi. Hi. 2. How are you? How are yule? 3. My name is Ynes. My name spill it. 4. I need help. I need united something. 5. I'm hungry. Nide medical under. 03/15: 1st session: Repeating of single words in the context of reading comprehension task today: 01/06, 17% accuracy, patient demonstrated poor awareness of her errors. Cloze cues were successful at eliciting target word on two instances, however this is not consistently successful 03/16: Session 1- Patient repeats 1-2 syllable functional words with 50% accuracy provided a visual model by the clinician. Errors were typically phonemic paraphasias. See results below: Target Response Error Type 1. bee bee - 2. doctor doctor - 3. beach beach - 4. level lever phonemic paraphasia 5. hand hand - 6. lamp ganter neologism 7. glove glug phonemic paraphasia 8. helmet helment phonemic paraphasia 9. coffee cofter phonemic paraphasia 10. baby baby - Probe: Repeating functional phrases Target Response 1. Hi. My. 2. How are you? Why are you? 3. My name is Ynes. My eater... (jargon) 4. I need help. I need kayla. 5. I'm hungry. I'm mentor. 6. I'm thirsty. My ever. 7. I need to use the toilet. (jargon) Session 2- Patient repeats 1-2 syllable functional words with 40% accuracy provided a visual model by the clinician. Errors were typically phonemic paraphasias and occasionally neologisms. See results below: Target Response Error Type 1. samir ashby neologism 2. house hout Phonemic paraphasia 3. bed den Phonemic paraphasia 4. dress gama Phonemic paraphasia 5. onion onion - 6. money many Phonemic paraphasia 7. road road - 8. football whipnar neologism 9. shoulder shoulder - 10. nurse nurse - 03/17: Session 1- Patient repeats 1-2 syllable functional words with 80% accuracy provided a visual model by the clinician, with credit provided for items that were accurate following multiple trials.Errors were typically phonemic paraphasias. See results below: Target Response Error Type 1. ball ball - 2. sheep Sheet, sheet, sheep Phonemic paraphasia x2 3. stomach stomach - 4. bus bent, but, bus Phonemic paraphasia x2 5. french professor french professor - 6. towels dowel, towels Phonemic paraphasia x1 7. peas teas, teas, tears Phonemic paraphasia x3 8. zipper Zippernight, ,zipper, zipper Phonemic paraphasia x1 9. soccer soccer - 10. crab Cow, crite, choirs Phonemic paraphasia x3 Probe: Repeating functional phrases Target Response 1. Hi. Hi. 2. How are you? T1: Hi owe tour? T2: Hi owe tart? 3. My name is Ynes. T1: My nert T2: Nines ert. 4. I need help. T1: My niners apartments. T2: My nine apartments. 5. I'm hungry. T1: Mine a none-is. T2: Mine dunion. 6. I'm thirsty. T1: Mine abundon. 7. I need to use the toilet. T1: I need linda hernández. Reading Comprehension: Goal #1: The patient will identify the written word in a field of 2, given an auditory model with 80% accuracy. 03/11: Session 2- Patient identifies written words in a field of 2, given an auditory model with 81%accuracy. 03/12: Session 2- Patient identifies written words in a field of 2, given an auditory model with 50%accuracy. 03/16: Session 2- Patient identifies written words in a field of 2, given an auditory model with 67%accuracy. 03/18: Session 1: Patient identified written words in a field of 2 (presented vertically) with 60% accuracy (LARK word cards). Goal #2: The patient will identify the written word to match a given object or picture with 80% accuracy in a field of 3 (presented in a vertical orientation). 03/12: Session 1- Patient identifies the written word from a field of 3, given a picture of an object, with 53% accuracy. 03/14: Session 2- Attempted but could not complete d/t patient complaining of not being able to see stimuli d/t them being blurry. 03/15: 1st session: Patient was given a pictured object/item and then presented with three words, written by clinician in a vertical presentation and held upright for her viewing. She then used the picture to 'underline' the matching written word. She independently manipulated the picture to aid hervision. Word to picture match (f of 2 words), presented vertically: 100% accuracy 1. 13 6. 13 2. 15 7. / 3. 13 8. / 4. 15 9. / 5. 13 10. / Word to picture match (f of 3 words), presented vertically: 83% accuracy 1. 6 6. 15 2. 13 7. / 3. 15 8. / 4. 13 9. / 5. 15 10. / 03/16: Session 2- Probe: Patient identifies written 2-3 word phrases from a field of 2, given a picture of an object with 50% accuracy. 03/18: Session 1: Word to picture (field of 3 words), presented vertically: 07/04 at 80% Written Expression: Goal #1: The patient will write functional words and short phrases related to personal information (e.g., name, address, date of ) with 90% accuracy given mod verbal/visual cues. 03/09: Session 2- Patient writes functional words and short phrases related to personal information.See results below: Name: 100% accuracy Address: Patient does not provide street number, street name, or apartment number. She did write inapartment number once clinician wrote in the street number and street name. She got 100% accuracy for city and state. Phone Number: 100% accuracy Occupation: Unable to complete. 03/12: Session 1- Patient writes functional words and short phrases related to personal information.See results below: Name: 100% accuracy Address: 100% accuracy following a self-correction Phone Number: 100% accuracy Occupation: 100% accuracy following request for clarification and mod cues from the clinician 03/15: 2nd session: Patient copied her first and last name accurately and independently. Probe: Patient presented with a pictured object/item and provided it's label verbally. She was asked to write the name of the object/item. Initial perseveration on the letter of her first name, however she recognized this error and accurately self corrected to write the first 2 letters of the word 'dog' (accurate for picture). Given two written foils of the accurate spelling, she quickly and accurately identified the correct spelling (and did so with 100% accuracy subsequently). Trials were continued: 1. 12/MC 2. 12/MC 3. 8/MC 4. 15* 5. 12 given initial letter 12 = partially correct spelling which most often included initial 2 letters of the word being written accurately MC = successful identification of the spelling given multiple choice *spelled aloud accurately, otherwise spelling aloud characterized by jargon letters PATIENT/FAMILY EDUCATION: Patient/Family Education: Patient/family education was provided today including: rehab goals and questions were addressed. Topic: Patient/Family education and training was completed today including: the role of Speech-Language Pathology aphasia questions were addressed Learner: patient Method of Education: Verbal Barriers to Learning/Education: fatigue, headache pain, and presence of language impairment Patient: needs further instruction and education Family: No family present. Patient/Family Goals: Patient states I want to get better. Team Communication: Conversation with patient's OT who is suspecting a right homonymous hemianopsia ?? Assessment /CLINICAL IMPRESSIONS: Ynes White is a female 50 y.o. 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 Today during first session Ynes demonstrated improved comprehension of 1-step contextual directions with supports, auditory comprehension of words in a field of 2. Reading at the contextual single word level in a field of 3 continues to be a strength which should be utilized to maximize her gains across all therapies. Patient continues to benefit from a Supported Conversation for Adults with Aphasia (SCA) approach. Written iInformation regarding SCA has been posted in Ynes's room for her staff members to review and a copy has been left her in room to provide to her family members. Ynes remains appropriate for 30 min BID sessions for aphasia intervention based on her level of fatigue and headache pain. Ynes White currently presents with severe expressive and receptive aphasia, most consistent with Wernicke's type but with some deviation from typical Wernicke's type presentation. Patient appears to be able to follow some basic 1-step commands effectively provided context, models, slow auditory presentation of information, and tactile cues as needed. Repetition, object naming, word fluency,sentence completion, and responsive speech are all impaired. Ynes demonstrates a favorable response to use of gestures to assist with her auditory comprehension. Expressive language is characterized as fluent but mostly consists of word salad with many instances of jargon, neologisms, and paraphasias with occasional moments of intelligible discourse scattered throughout. Ynes's discourse could also be described as tangential and perseverative. She attempts to utilize gestures to augmenther expressive language, but is not always successful. She is also demonstrating breakdowns in reading comprehension at the short sentence level and significant deficits in written expression at the word level, compounded by impaired auditory comprehension preventing writing to dictation and impaired naming preventing written naming. These deficits impact the patient's ability to functionally comm unicate her wants, needs, and ideas and hold conversation. She presents with severe impairments in reading comprehension, however, she demonstrates some success with reading comprehension at the wordlevel, which appears to be a relative strength compared to her auditory comprehension. She exhibits significant breakdown in reading comprehension at the short sentence level. Ynes also demonstrates significant deficits in written expression at the single word level however this appears to be improving and her awareness of these errors appears better than her awareness of errors in verbal expression. She also demonstrates relative strength in copying words and sentences, as well as writing numbers. It has been determined that the patient demonstrates deficits that impact functioning in daily activities and hinder participation in life situations.??Patient currently requires assistance from others to communicate basic wants and needs and direct her medical care. Pt will continue to benefit from her needs being anticipated and simplified information presented to her. Information should be repeated and said in different ways, and augmented with pictures and gestures. The patient is demonstrating strengths in motivation and some intact basic expressive language skills which should be utilized during the patient's plan of care to maximize gains. Contextual factors that may impact the patient's ability to progress toward rehab goals include: severity of language impairment, need for physical assistance, tolerance level for therapy, and pain. Based on patient's tolerance level, it is recommended that patient participate in 30 minute BID sessions initially and build toward 60 minute sessions as tolerated. Given patient's age, independence prior to admission, and social/occupational demands, she would benefit from intensive ANESTHESIOLOGY PHYSICIAN ASSISTANT intervention. Based on the patient's rehab potential, motivation, prior level of function, and the contextual factors, the patient's prognosis is considered good. It is anticip ated that the patient will make functional gains in expressive and receptive language skills with intensive skilled 1:1 speech language pathology services in the inpatient rehabilitation setting. Functional Communication Measures ([place] [employer], 2002). The Functional Communication Measures (FCM???s) are a series of 7 point rating scales, ranging fromleast functional (Level 1) to most functional (Level 7). They have been developed by [employer] to describe different aspects of patient???s functional communication and swallowing abilities over the course of ANESTHESIOLOGY PHYSICIAN ASSISTANT intervention. ?? Spoken Language Comprehension Level 2: With consistent, maximal cues, the individual is able to follow simple directions, respond to simple yes/no questions in context, and respond to simple words orphrases related to personal needs. Spoken Language Expression Level 3: The communication partner must assume responsibility for structuring the communication exchange, and with consistent and moderate cueing, the individual can produce words and phrases that are appropriate and meaningful in context. Reading Level 3: The individual reads single letters and common words, and with consistent moderatecueing, can read some words that are less familiar, longer, and more complex. Writing Level 2: The individual writes single letters and common words with consistent maximal cueing. ?? GOALS: Snf Goals: Projected Functional Communication Measures at discharge: Spoken Language Comprehension Level 4: Individual consistently responds accurately to simple yes/noquestions and occasionally follows simple directions without cues. Moderate contextual support is usually needed to understand complex sentences/messages. The individual is able to understand limited conversations about routine daily activities with familiar communication partners. Spoken Language Expression Level 4: The individual is successfully able to initiate communication using spoken language in simple, structured conversations in routine daily activities with familiar communication partners. The individual usually requires moderate cueing, but is able to demonstrate use of simple sentences (i.e., semantics, syntax, and morphology) and rarely uses complex sentences/messages. Reading Level 4: The individual reads words and phrases related to routine daily activities, and words that are less familiar, longer, and more complex. The individual usually requires moderate cueing to read sentences of approximately 5-7 words. Writing Level 3: The individual writes single letters and common words, and with consistent moderate cueing, can write some words that are less familiar, longer, and more complex. Short Term Goals: Auditory Comprehension: Goal #1: Patient will identify objects in a visual field of 4-6 with >80% accuracy provided minimal cues from the clinician and repetitions for fewer than 50% of trials. Goal #2: Patient will answer simple yes/no questions immediately after review with >70% accuracyprovided moderate cues for attention and initiation. Goal #3: Patient will follow simple 1-step commands related to functional environment with >70% accuracy provided moderate verbal/tactile/visual cues in order to increase functional integration into environment. ?? Expressive Language: Goal #1: Patient will recite automatic speech tasks given moderate cues with >70% accuracy. Goal #2: Patient will name objects (real or pictured) to confrontation with >50% accuracy provided maximum verbal cues. Goal #3: Patient will repeat 1-2 syllable functional words with >70% accuracy provided a visual model by the clinician. ?? Reading Comprehension: Goal #1: The patient will identify the written word in a field of 2, given an auditory model with 80% accuracy. Goal #2: The patient will identify the written word to match a given object or picture with 80% accuracy in a field of 3 (presented in a vertical orientation). Written Expression: Goal #1: The patient will write functional words and short phrases related to personal information (e.g., name, address, date of ) with 90% accuracy given mod verbal/visual cues. ?? Plan RECOMMENDATIONS: Patient will continue to benefit for further ANESTHESIOLOGY PHYSICIAN ASSISTANT intervention in this setting to address aphasia management and intervention needs. ?? Recommend inpatient rehabilitation ANESTHESIOLOGY PHYSICIAN ASSISTANT services: Patient will be seen for a minimum of 5x/week @ 30minutes BID due to current tolerance level. ?? Communication Access and Shared Decision Making Recommendations Please support communication access and shared decision making ability by doing the following: ?? Support Comprehension: ?? Have a pen and paper ready when communicating. ?? Please present information slowly and simplify. Augment with drawings, diagrams, gestures and pointing. ?? Ask one question at a time. ?? Have only one person speak at a time. ?? Environmental modifications:? Simplify the environment: ?? Carryover/Discharge??and Healthcare Decision making considerations ?? Will need family support for the successful carryover of discharge recommendations. ?? Currently comprehension of non-contextual information is a barrier Cecelia Azevedo MS, CCC-ANESTHESIOLOGY PHYSICIAN ASSISTANT Speech Language Pathologist Pager #[phone] (Saturday - Saturday [phone]) P[facility] # [phone] [facility]) CECELIA AZEVEDO MS CCC-ANESTHESIOLOGY PHYSICIAN ASSISTANT 03/18/2020 13:36 * Eliza Douglas, OT - 03/18/2020 0811 EDT [facility] Rehabilitation Therapy Inpatient Rehabilitation [facility] Occupational Therapy Encounter Note Date of Service: 03/18/2020 SUBJECTIVE: I had a new girl. Its ok, people do things differently. Re: new caregiver SESSION 1 OBJECTIVE: Start time: 1000 Treatment time: 30 Scheduled time: 30 Total Therapy Minutes: 30 minute(s) Interventions included: Neuromuscular Re-education Arrived to find pt sitting in a wheelchair. She was anxious and reporting pain. She was holding hercall miranda, but had not used the button. Ambulated to the bed for a 3-5 min rest, pt was then able to participate. Ambulated down the [place] with her walker and min contact assist. BITS Visual scanning Score: First time Accuracy: 90.32% Time: 1 min Reaction: 2.14sec # Hits: 28 ~1 min rest Score: Second time Accuracy: 92.11 % Time: 1 min Reaction: 1.69 sec # Hits: 35 SESSION 2 OBJECTIVE: Start time: 11:30 Treatment time: 0 Scheduled time: 30 Reason not treated: Pt reported fatigue. She had a full schedule of therapy all morning. Total Therapy Minutes: 0 minute(s) ASSESSMENT: Pt demonstrating strong scanning skills with good insight into loss of vision on her right side. Pt exhibiting improved speech today. Pt typically works hard, and desires to participate in therapy. Our second session today she was sotired that she requested sleeping. This is rare for her, but it was clear that she had therapy backto back all morning. OT to increase treatment time to 90 minutes - this will allow for more advanced tasks. PLAN: Continue OT. Advance complexity of BITS as tolerated. Meal prep Pager: [phone] Eliza Douglas OT, 03/18/2020, 8:12 * Martha Esparza MD - 03/17/2020 4428 EDT Physiatry Progress Note Admit Date: 03/02/2020 Hospital Day: LOS: 15 days Date of Service: 03/17/2020 Chief Complaint: Left temporoparietal hemorrhage status post decompressive craniectomy, setting of central venous thrombosis 02/14/2020 Subjective: Expressive and receptive language deficits limit history. Seems to indicate mild abdominal pain and headache overnight, improved this AM. Denies chest pain, shortness of breath, nausea/vomiting. Improving PO intake per RN. Current Facility-Administered Medications: acetaminophen (TYLENOL) tablet 650 mg oral Q4H PRN aspirin chewable tablet 81 mg oral DAILY bisacodyL (DULCOLAX) suppository 10 mg rectal Q48H PRN calcium carbonate (TUMS) 200 mg calcium (500 mg) per chewable tablet tablet,chewable 1 Tab oral QIDPRN docusate sodium (COLACE) capsule 100 mg oral BID PRN enoxaparin (LOVENOX) injection 80 mg subcutaneous Q12H guaiFENesin tablet 200 mg oral Q6H PRN HYDROmorphone (DILAUDID) tablet 2-4 mg oral Q4H PRN melatonin tablet 3 mg oral QHS multivitamin (FLINTSTONES) chewable tablet 1 Tab oral DAILY nicotine (NICODERM CQ) 7 mg/24 hr patch 1 Patch transdermal Q24H ondansetron (ZOFRAN-ODT) disintegrating tablet 4 mg oral Q4H PRN pantoprazole (PROTONIX) tablet 40 mg oral DAILY papain-alpha amylase-cellulase (CLOG ZAPPER) 2-5 mL feeding tube PRN QUEtiapine (SEROQUEL) tablet 12.5 mg oral QHS senna (SENOKOT) tablet 1 Tab oral BID PRN Objective/Physical Exam: VS: No data found. Pain: Patient Vitals for the past 8 hrs: Numeric Pain Level (Scale 1-10) 03/17/20 0905 8 Weight: Weight : 82.2 kg (181 lb 4.8 oz) I&O: Intake/Output Summary (Last 24 hours) at 03/17/2020 1652 Last data filed at 03/17/2020 0905 Gross per 24 hour Intake 480 ml Output -- Net 480 ml Exam: Gen: Alert, pleasant, no distress HEENT: Left decompressive hemicraniectomy site slightly sunken. No clear visual field cut. No facial droop. Pharynx is clear. Neck supple. Mucosal membranes are moist Skin: no rashes Cardiac: Cor RRR Pulmonary: respirations even, unlabored Abdomen: soft, nontender to palpation, PEG site clean and dry. Musculoskeletal: no joint tenderness, deformity or swelling, no muscular tenderness noted, full range of motion without pain Neuro: Expressive greater than receptive aphasia affect: Alert Motor: No focal motor weakness Tone: normal Sensation: No clear focal sensory loss Cerebellar: no tremors Labs: I have personally reviewed CBC: Lab Results Component Value Date WBC 6.49 03/17/2020 RBC 4.02 03/17/2020 HGB 12.7 03/17/2020 HCT 37.5 03/17/2020 MCV 93 03/17/2020 MCH 31.6 03/17/2020 MCHC 33.9 03/17/2020 PLT 221 03/17/2020 NEUTROABS 5.03 02/14/2020 BMP: Lab Results Component Value Date NA 133 (L) 03/17/2020 K 4.9 03/17/2020 CL 98 03/17/2020 CO2 24 03/17/2020 BUN 26 03/07/2020 CREATININE 1.11 (H) 03/17/2020 CALCIUM 8.8 02/14/2020 MG 1.7 03/02/2020 PHOS 4.6 (H) 03/07/2020 LABALBU 3.9 05/07/2001 Assessment/Problems: Patient Active Problem List Diagnosis Date Noted ??? *(H)Left-sided nontraumatic intracerebral hemorrhage ([facility] 03/02/2020 Status post decompressive hemicraniectomy ??? Brain herniation ([facility]) 02/17/2020 Priority: Medium ??? Cerebral edema ([facility]) 02/17/2020 Priority: Medium ??? 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 (H)Cerebral venous thrombosis 02/14/2020 Priority: Medium ??? Encounter for insertion or removal of intrauterine contraceptive device 02/12/2020 Priority: Medium ??? Nicotine dependence, unspecified, uncomplicated 02/12/2020 Priority: Medium ??? Perimenopausal 02/12/2020 Priority: Medium ??? Post concussion syndrome 02/12/2020 Priority: Medium ??? Tobacco abuse 12/02/2012 Priority: Medium ??? Chronic low back pain 10/13/2012 Priority: Medium ??? Back pain 09/25/2012 Priority: Medium Plan: 1. Left frontal intraparenchymal hemorrhage: Status post decompressive craniectomy. Patient with residual mild right-sided weakness, significant expressive and receptive aphasia, dysphagia. Full PT, OT, ANESTHESIOLOGY PHYSICIAN ASSISTANT to address mobility, self care communication and swallowing function. 24 hour rehab nursing for self care deficits. Helmet on when out of bed. Diet advanced to regular consistency. 2. 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 Evidence of left IJ, sigmoid and transverse sinuses as well. Now on therapeutic dose Lovenox. Low molecular weight heparin level obtained and was subtherapeutic with Lovenox adjusted to 80 mg every 12 hours. Level is therapeutic. Hematology was working on setting up follow-up in [facility] clinic. 3. Right upper lobe pulmonary embolism, left upper extremity DVT: Now on therapeutic dose Lovenox. ?? 4. History of anxiety/depression: Monitor clinically. Start to taper at bedtime Seroquel.. Considermedical psychology consultation as language deficits allow. She has listed allergies to citalopram and duloxetine. 5. Nutrition: PEG tube placed 02/18/2020. Goal is to keep the tube in place for at least 6 weeks after placement, as reviewed with Dr. Branch from acute care surgery. Diet is currently regular consistency. 6. Hypertension: Metoprolol held for low BP yesterday and today; will monitor. 7. Renal: Slight increase in Creatinine, possibly related to therapeutic dose lovenox. Will rechecklovenox level and Cr in AM. Martha Esparza MD 03/17/2020 16:52 * Maria Victoria Hernandez MD - 03/17/2020 1601 EDT MEDICINE FOLLOW-UP Date of service: 03/17/2020 PCP: Alejandrina Carrillo CHIEF COMPLAINT: Hypercoagulable state of unclear origin, cerebral venous thrombosis presenting as left frontal intraparenchymal hemorrhage, incidental PE in RUL and UE DVT, worsening hemorrhage in the setting of therapeutic anticoagulation SUBJECTIVE: Discussed BP with nursing today. Her metoprolol has been held the last day and BPs have been soft throughout the day. She is asymptomatic. RN thinks the cuff is the right size. Po intake fair. Labs today all looked fair - cr up a bit and sodium stable at 133. CBC ok. She is taking the dilaudid on a fairly regular basis - this can sometimes cause lower blood pressures. No fevers, cough or dyspnea. OBJECTIVE: Patient Vitals for the past 48 hrs: BP Pulse Heart Rate Resp Temp 03/17/20 0800 97/54 (!) 106 -- 20 -- 03/17/20 0656 108/51 90 -- 14 36.7 ??C (98.1 ??F) 03/16/20 2100 91/54 84 -- -- -- 03/16/20 1334 (!) 88/59 -- 95 BPM -- -- 03/16/20 0637 (!) 87/57 84 -- 14 35.7 ??C (96.3 ??F) Vital signs are stable and the patient is afebrile. Physical exam is stable No distress. Respirations even, unlabored. Motor/sensory exam stable. MEDICATIONS: aspirin chewable 81 mg oral DAILY enoxaparin 80 mg subcutaneous Q12H melatonin 3 mg oral QHS multivitamin 1 Tab oral DAILY nicotine 1 Patch transdermal Q24H pantoprazole 40 mg oral DAILY QUEtiapine 12.5 mg oral QHS acetaminophen 650 mg Q4H PRN bisacodyL 10 mg Q48H PRN calcium carbonate 1 Tab QID PRN docusate sodium 100 mg BID PRN guaiFENesin 200 mg Q6H PRN HYDROmorphone 2-4 mg Q4H PRN ondansetron 4 mg Q4H PRN papain-alpha amylase-cellulase 2-5 mL PRN senna 1 Tab BID PRN LABS: Last labs: Labs: I have personally reviewed CBC: Lab Results Component Value Date WBC 6.49 03/17/2020 RBC 4.02 03/17/2020 HGB 12.7 03/17/2020 HCT 37.5 03/17/2020 MCV 93 03/17/2020 MCH 31.6 03/17/2020 MCHC 33.9 03/17/2020 PLT 221 03/17/2020 NEUTROABS 5.03 02/14/2020 BMP: Lab Results Component Value Date NA 133 (L) 03/17/2020 K 4.9 03/17/2020 CL 98 03/17/2020 CO2 24 03/17/2020 BUN 26 03/07/2020 CREATININE 1.11 (H) 03/17/2020 CALCIUM 8.8 02/14/2020 MG 1.7 03/02/2020 PHOS 4.6 (H) 03/07/2020 LABALBU 3.9 05/07/2001 ASSESSMENT/PLAN: 1. 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 Suspect underlying hypercoagulable state. PT/OT/ANESTHESIOLOGY PHYSICIAN ASSISTANT Falls precautions Delirium prevention measures Aspiration precautions Dysphagia diet: 4 with thins 2. Hypercoagulable disorder NOS. Venous dural thrombosis, PE Enox dosing decreased to 80 bid based on LMWH levels Will need OP heme clinic 3. Hypertension - now with relative hypotension Now off both metoprolol 25 bid + lisinopril 20 Please encourage her to drink fluids with solute - things like milk, chocolate milk, ensure, boost,etc If BP low tomorrow, may have to entertain small amount of IVF - bump in cr makes me think maybe volume down? The patient is medically stable and tolerating the present level of the rehab program. The patient is to continue in the rehabilitation program. Maria Victoria Hernandez MD * Nolvia Lamar, OT - 03/17/2020 1223 EDT Rehabilitation Therapies Inpatient Rehabilitation [facility] Occupational Therapy Encounter Note Date of Service: 03/17/2020 Subjective/Objective SUBJECTIVE: I'm really sad, but it's good you know. It's good for me... It's good for them. (pt reporting to this fiction and nonfiction prose writer that her d/c date was extended) OBJECTIVE: Start Time: 1400 Total Minutes Treatment: 30 minute(s) Interventions included: Session One: *Focus of session on progressing functional vision and basic house management tasks. Therapeutic Activities -Pt was shown a large picture of kitchen items and tasked with locating circled item and then finding item positioned ~3 feet from pt on table. Focus of task on progressing visual accomodation. Completed x 3 without difficulty. -Progressed to having pt use picture to organize disorganized shelving unit. Followed picture with 100% accuracy, frequently looking down at picture and then back up to shelf without difficulty. -Pt expressed interest in brownie mix, but reported it had too much sugar. Pt was shown cabinet of baking mixes and she located muffin mix; stated she would like to make it sometime in the future. -Retrieved bag and asked pt practice setting oven to listed tempeture. She did this without error and then turned it off, emphasizing to therapist importance of this step. *Pt then reported increased head and stomach pain. Rested for ~5 minutes and then returned to bed in room. Ambulated with min contact assist x 1. No difficulty with pathfinding. Vital signs: Vital signs have been stable with interventions and were not monitored. Patient/Family Education: Topic: Compensatory strategies Cognitive strategies Safety awareness Head injury Learner: patient Method: verbal Barriers to Learning: language Outcome: verbalized understanding and reinforcement needed Team Communication: With primary OT regarding treatment planning and progress Assessment/Plan ASSESSMENT: Pt was pleasant and cooperative throughout session. Successfully organized LSR shelf using picture model, alternating between looking at photo and then back to shelving unit to work on visual accomodation. Pt properly set oven to appropriate temperature following muffin mix instruction without cues. She made sure to turn oven off prior to leaving room and communicated the importance of this to fiction and nonfiction prose writer. Unfortunately, she reported increased stomach and head pain at end of session. PLAN: Continue per primary OT's POC. Pager: [phone] Nolvia Lamar OT * Aida Goodman DPT - 03/17/2020 1011 EDT [facility] Rehabilitation Therapy Inpatient Rehabilitation Center [facility] Physical Therapy Encounter Note Date of Service: 03/17/2020 , Activity: Level of risk of Harm B, Activity as tolerated, , Additional Precautions Information: LBone flap precautions (helmet OOB), R Rooke Boot in bed, PEG tube SUBJECTIVE: Pt states she is excited OBJECTIVE: Start time: 1130 Total Therapy Minutes: 30 minute(s) Interventions completed today: Vital Signs: Pre: 109/55, HR 101 Post 85/54, HR 106 Gait: Ambulation to/from gym to/from her room with RW and cuing for path finding, supervision 300' Stairs: 12 steps with minimal contact assist and railing on right. Pt fluctuated between step to and reciprocal patterns without evidence of instability for either. Neuromuscular re-education: all with contact minimal assist x 40' x 6 reps each with seated rests between exercises. ?? Walking on toes ?? Walking on heels ?? Cross over stepping ?? High stepping ?? Side stepping with mini squats 2nd Session Time: Start time: 1430 Total Therapy Minutes: 30 minutes 2nd session held 2/2 manual BP 76/44 in supine - pt positioned in bed with LEs elevated- nursing notified Patient/Family Education: The benefits of physical therapy Team Communication: ?? With nursing regarding low BP ASSESSMENT:Pt tolerated 1st session well with focus on neuromuscular re-ed. Pt noted to require decreased cues and physical assist today demonstrating improved sequencing and balance. PLAN: ?? Gait without a device for endurance and strength ?? Stairs for endurance and leg strength ?? Obstacle negotiation, toe taps, single-limb stance variations for balance ?? Closed chain exercises for leg strength. ?? Path finding, Neuro re-ed Contact information: Pager: [phone] Aida Goodman DPT 03/17/2020 10:11 * Oliva Martinez, CCC-ANESTHESIOLOGY PHYSICIAN ASSISTANT - 03/17/2020 0758 EDT Speech-Language Pathology Daily and Current Progress Note ANESTHESIOLOGY PHYSICIAN ASSISTANT Diagnosis: Aphasia Medical Diagnosis: Cerebral venous thrombosis and resultant intraparenchymal hemorrhage in the leftfrontotemporal area Date of Onset: 02/14/20 Date of Referral: 03/02/20 Subjective/Objective SUBJECTIVE: 1st session: I need linda hernández. I'm just expriting (experiencing) this more today. I'm surprised to see it. It just hurts. It didn't hurt yesterday this bad. OBJECTIVE: Date of Service: 03/17/2020 Start Time: 929 Total Therapy minutes: 30 minute(s) comm-cog tx Second BID session not completed today as therapist had sudden onset illness in the middle of the day and had to leave the facility. Unable to reschedule with another therapist. Current Treatment Objectives: Auditory Comprehension: Goal #1: Patient will identify objects in a visual field of 4-6 with >80% accuracy provided minimal cues from the clinician and repetitions for fewer than 50% of trials. 03/11: Session 2- Patient identifies objects in a visual field of 4 with 100% accuracy provided written word and auditory presentation of the word. Patient identifies objects in a visual field of 6 with 80% accuracy provided written word and auditory presentation of the word. Patient requires significant repetition of each item provided field of 6 and encouragement as she was hesitant to answer frequently stating that it made her nervous to have more than 4 items to choose from. 03/12: Session 2- Patient identifies objects in a visual field of 4 with 80% accuracy provided written word and auditory presentation of the word. 03/14: Session 1- Patient identifies objects in a visual field of 4 with 70% accuracy provided written word and auditory presentation of the word. 03/15: 2nd session: Object ID (f of 4) given label and function: 88% accuracy 1. 15 6. 15 2. 15 7. 8 3. 15 8. 13 4. 15 9. / 5. 15 10. / Object ID (f of 4) given label ONLY: 50% accuracy 1. 13 6. 6 2. 15 7. 6 3. 6 8. 6 4. 13 9. 15 5. 13 10. 6 03/16: Session 1- Patient identifies objects in a visual field of 4 with 80% accuracy provided written word and auditory presentation of the word. Patient requires repetition of ~50% of items providedfield of 4. 03/17: Session 1- Patient identifies objects in a visual field of 6 with 80% accuracy provided written word and auditory presentation of the word. Patient requires repetition of ~25% of items providedfield of 4. Goal #2: Patient will answer simple yes/no questions immediately after review with >70% accuracyprovided moderate cues for attention and initiation. 03/07: Session 1: Patient responded to Y/N questions with jargon and some intelligible word related to questions (e.g., It was my father's name in response to Is your last name 'Cindy?'). 03/08: Session 1- Patient responds to simple Y/N questions with 30% accuracy. Errorless learning wasattempted with mixed success. 1. 6- Error: Inaccurate attempt at the task item 2. 6- Error: Inaccurate attempt at the task item 3. 6- Error: Inaccurate attempt at the task item 4. 9- Repeated: Accurate, after instructions are repeated (errorless learning utilized) 5. 6- Error: Inaccurate attempt at the task item (errorless learning attempted) 6. 9- Repeated: Accurate, after instructions are repeated (errorless learning utilized) 7. 6- Error: Inaccurate attempt at the task item (errorless learning attempted) 8. 6- Error: Inaccurate attempt at the task item (errorless learning attempted) 9. 9- Repeated: Accurate, after instructions are repeated (errorless learning utilized) 10. 6- Error: Inaccurate attempt at the task item 03/09: Session 1- Patient responds to simple Y/N questions with 60% accuracy. Today patient benefitsfrom written yes/no board and gestures for prompting. 1. 6- Error: Inaccurate attempt at the task item; 9- repeated 2. 9- Repeated: Accurate, after instructions are repeated 3. 15- Complete: accurate, responsive, complete, prompt, efficient 4. 6- Error: Inaccurate attempt at the task item 5. 13- Complete-delayed: Accurate, responsive, complete or complex, delayed 6. 15- Complete: accurate, responsive, complete, prompt, efficient 7. 13- Complete-delayed: Accurate, responsive, complete or complex, delayed 8. 13- Complete-delayed: Accurate, responsive, complete or complex, delayed 9. 13- Complete-delayed: Accurate, responsive, complete or complex, delayed 10. 6- Error: Inaccurate attempt at the task item 4/16: Session 1- Patient responds to simple Y/N questions with 20% accuracy. Today patient benefitsfrom written yes/no board and gestures for prompting. 1. 6- Error: Inaccurate attempt at the task item 2. 6- Error: Inaccurate attempt at the task item 3. 8- Cued: Accurate, after cue is given 4. 15- Complete: accurate, responsive, complete, prompt, efficient 5. 6- Error: Inaccurate attempt at the task item 6. 6- Error: Inaccurate attempt at the task item 7. 6- Error: Inaccurate attempt at the task item 8. 15- Complete: accurate, responsive, complete, prompt, efficient 9. 6- Error: Inaccurate attempt at the task item 10. 6- Error: Inaccurate attempt at the task item 4/17: Session 1- Patient responds to simple Y/N questions with 50% accuracy. Today patient benefitsfrom written yes/no board and gestures for prompting. 1. 9- Repeated: Accurate, after instructions are repeated 2. 15- Complete: accurate, responsive, complete, prompt, efficient 3. 15- Complete: accurate, responsive, complete, prompt, efficient 4. 6- Error: Inaccurate attempt at the task item 5. 8- Cued: Accurate, after cue is given 6. 6- Error: Inaccurate attempt at the task item 7. 6- Error: Inaccurate attempt at the task item 8. 15- Complete: accurate, responsive, complete, prompt, efficient 9. 6- Error: Inaccurate attempt at the task item 10. 15- Complete: accurate, responsive, complete, prompt, efficient 4/18: Session 2- Patient responds to simple Y/N questions with 60% accuracy with credit given for answers that were correct following a delay or repetition of the stimulus. Today patient benefits from written yes/no board and gestures for prompting. 1. 13- Complete-delayed: Accurate, responsive, complete or complex, delayed 2. 6- Error: Inaccurate attempt at the task item 3. 9- Repeated: Accurate, after instructions are repeated 4. 15- Complete: accurate, responsive, complete, prompt, efficient 5. 13- Complete-delayed: Accurate, responsive, complete or complex, delayed 6. 6- Error: Inaccurate attempt at the task item 7. 6- Error: Inaccurate attempt at the task item 8. 15- Complete: accurate, responsive, complete, prompt, efficient 9. 6- Error: Inaccurate attempt at the task item 10. 15- Complete: accurate, responsive, complete, prompt, efficient 03/14: Session 2- Patient responds to simple Y/N questions with 60% accuracy with credit given for answers that were correct following a delay or repetition of the stimulus. Today patient benefits from written yes/no board and gestures for prompting. 1. 6- Error: Inaccurate attempt at the task item 2. 15- Complete: accurate, responsive, complete, prompt, efficient 3. 6- Error: Inaccurate attempt at the task item 4. 13- Complete-delayed: Accurate, responsive, complete or complex, delayed 5. 2- Attention: No response, but patient attends to the guido 6. 13- Complete-delayed: Accurate, responsive, complete or complex, delayed 7. 15- Complete: accurate, responsive, complete, prompt, efficient 8. 10- Corrected: Accurate, self-corrected 9. 15- Complete: accurate, responsive, complete, prompt, efficient 10. 15- Complete: accurate, responsive, complete, prompt, efficient 03/16: Session 1 - Patient responds to simple Y/N questions with 80% accuracy with credit given for answers that were correct following a delay or repetition of the stimulus. Today patient benefits from written yes/no board and gestures for prompting. 1. 9- Repeated: Accurate, after instructions are repeated 2. 13- Complete-delayed: Accurate, responsive, complete or complex, delayed 3. 13- Complete-delayed: Accurate, responsive, complete or complex, delayed 4. 6- Error: Inaccurate attempt at the task item 5. 13- Complete-delayed: Accurate, responsive, complete or complex, delayed 6. 15- Complete: accurate, responsive, complete, prompt, efficient 7. 15- Complete: accurate, responsive, complete, prompt, efficient 8. 10- Corrected: Accurate, self-corrected 9. 15- Complete: accurate, responsive, complete, prompt, efficient 10. 15- Complete: accurate, responsive, complete, prompt, efficient 03/17: Session 1 - Patient responds to simple Y/N questions with 80% accuracy with credit given for answers that were correct following a delay or repetition of the stimulus. Today patient benefits from written yes/no board and gestures for prompting. 1. 9- Repeated: Accurate, after instructions are repeated 2. 6- Error: Inaccurate attempt at the task item 3. 15- Complete: accurate, responsive, complete, prompt, efficient 4. 9- Repeated: Accurate, after instructions are repeated 5. 13- Complete-delayed: Accurate, responsive, complete or complex, delayed 6. 13- Complete-delayed: Accurate, responsive, complete or complex, delayed 7. 13- Complete-delayed: Accurate, responsive, complete or complex, delayed 8. 13- Complete-delayed: Accurate, responsive, complete or complex, delayed 9. 13- Complete-delayed: Accurate, responsive, complete or complex, delayed 10. 6- Error: Inaccurate attempt at the task item Goal #3: Patient will follow simple 1-step commands related to functional environment with >70% accuracy provided moderate verbal/tactile/visual cues in order to increase functional integration into environment. 03/09: Session 2- Patient follows simple 1-step commands related to environment with 0% accuracy independently. Accuracy increases to 90% accuracy following a model by the clinician with slowed auditory presentation of directions. 03/10: Session 1- Patient follows simple 1-step commands related to environment with 0% accuracy independently. Accuracy increases to 90% accuracy following a model by the clinician with slowed auditory presentation of directions. 03/12: Session 1- Patient follows simple 1-step commands related to environment with 0% accuracy independently. Accuracy increases to 62% accuracy following a model by the clinician with slowed auditory presentation of directions. 03/14: Session 2- Patient follows simple 1-step commands related to environment with 100% accuracy following a model by the clinician with slowed auditory presentation of directions. 03/15: / session: Patient followed 1 step commands in the context of therapy tasks today giveninitial demonstration. 03/16: Session 2- Patient follows simple 1-step commands related to environment with 90% accuracy following a model by the clinician with slowed auditory presentation of directions. 03/17: Session 1- Patient follows simple 1-step commands related to environment with 100% accuracy following a model by the clinician with slowed auditory presentation of directions. Patient completed1 of the commands independently without a model from the clinician today. Expressive Language: Goal #1: Patient will recite automatic speech tasks given moderate cues with >70% accuracy. 03/08: Session 1- Patient recites automatic speech tasks with the clinician. See results below: 1-10: 100% accuracy following a model The Alphabet: Unable to perform in unison Months of the Years: Attempted to have patient repeat each month after the clinician: November, December, (jargon), (jargon), , June, April medication, June compation, sincation medication,seegus, French, lessonagus Musa, Decemegas 03/09: Session 1- Patient recites automatic speech tasks with the clinician. See results below: 1-10: 100% accuracy following a starter cue one... The Alphabet: T1: A, me, S, d, 8, q, A, me, d, ec, q, g, h, eed, h ; T2: Patient was able to achieve 50% in unison with the clinician but eventually perseverated on w Days of the Week: Patient perseverated on w, k despite max cues, models, and attempts to perform in unison Session 2- Patient recites automatic speech tasks with the clinician. See results below: 1-10: 80% accuracy following a repetition of the instructions; 80% accuracy in trial 2 following a repetition of the instructions. The Alphabet: A, 7 you mean? following max cues and models Days of the Week: Patient perseverated on w, k despite max cues, models, and attempts to perform in unison 03/10: Session 1- Patient recites automatic speech tasks with the clinician. See results below: 1-10: 100% accuracy The Alphabet: a, q, q, jews, each, l, l, elf Days of the Week: w, q, w, q, w, q, l, q, l, q 03/12: Session 2- Patient recites automatic speech tasks with the clinician. See results below: 1-10: 90% accuracy The Alphabet: l, n, h, stomich, a, m, h, m, etch, is it etch? Days of the Week: elmen, elmen threemen, riley three hundred, h, h, eight? No, stomach 03/14: Session 2- Patient recites automatic speech tasks with the clinician. See results below: 1-: 90% accuracy Days of the Week: feminal, lessons, lezimen... 03/16: Session 1- Patient recites automatic speech tasks with the clinician. See results below: 1-: 0% accuracy Days of the Week: drama, bever, mener, sever... 03/17: Session 1- Patient recites automatic speech tasks with the clinician. See results below: 1-: 100% accuracy Days of the Week: Saturday, Saturday, Wender, Thunder, Wender, Sender, Fender when repeating each day individually following a model by the clinician. Goal #2: Patient will name objects (real or pictured) to confrontation with >50% accuracy provided maximum verbal cues. Probe: naming an object from a fo2 multiple choice- 20% accuracy (patient struggling with repeatingthe words, producing neologisms or paraphasias) 03/15: 2nd session: Repeating name of pictured object (in spontaneous context) in the context of a written expression task: ~50% accuracy (with partial credit for spelling a word out loud accurately!) 1. 6 2. 6 3. 15 4. 15 5. 8* * spelled the word out loud correctly! 03/16: Session 1- Patient names real pictured objects to confrontation provided maximum cues (phonemic, semantic, cloze, repetition, etc.) with 0% accuracy. Target Response 1. Earth derb (max cues) 2. door dargis (max cues) 3. pants stargus (max cues) 4. boxing dargus (max cues) 5. taco targus (max cues) Goal #3: Patient will repeat 1-2 syllable functional words with >70% accuracy provided a visual model by the clinician. 03/09: Session 2- Patient repeats 1-2 syllable functional words with 10% accuracy provided a visual model by the clinician. For 60% of trials patient produced neologisms and for 30% of trials patient produced phonemic paraphasias. See results below: 2. 6- Error: Inaccurate attempt at the task item; neologism 3. 6- Error: Inaccurate attempt at the task item; neologism 4. 15- Complete: accurate, responsive, complete, prompt, efficient 5. 14- Distorted: accurate, responsive, complete or complex, prompt, distorted; phonemic paraphasia 6. 6- Error: Inaccurate attempt at the task item; neologism 7. 6- Error: Inaccurate attempt at the task item; neologism 8. 14- Distorted: accurate, responsive, complete or complex, prompt, distorted; phonemic paraphasia 9. 14- Distorted: accurate, responsive, complete or complex, prompt, distorted; phonemic paraphasia 10. 6- Error: Inaccurate attempt at the task item; neologism 03/10: Session 1- Patient repeats 1-2 syllable functional words with 30% accuracy provided a visual model by the clinician. For 70% of trials patient produced neologisms. See results below: 1. 8- Cued: Accurate, after cue is given; neologism for first few trials; required tactile and visual cues 2. 15- Complete: accurate, responsive, complete, prompt, efficient 3. 6- Error: Inaccurate attempt at the task item; neologism 4. 6- Error: Inaccurate attempt at the task item; neologism 5. 15- Complete: accurate, responsive, complete, prompt, efficient 6. 15- Complete: accurate, responsive, complete, prompt, efficient 7. 6- Error: Inaccurate attempt at the task item; neologism 8. 6- Error: Inaccurate attempt at the task item; neologism 9. 6- Error: Inaccurate attempt at the task item; neologism 10. 6- Error: Inaccurate attempt at the task item; neologism Session 2- Patient repeats 1-2 syllable functional words with 30% accuracy provided a visual model by the clinician. For 70% of trials patient produced neologisms. 03/11: Session 1- Patient repeats 1-2 syllable functional words with 0% accuracy provided a visual model by the clinician. See results below: Target Response 1. socks stomach 2. chair Stomach mesausen 3. finger megas megasarus 4. baby Lady mesasus 5. helmet helmamarier 6. Earth siroath 7. mandaen churchtons 8. pepper lymins 9. shorts short hundreds 10. sink [place] desa[place]in; sank; sank 03/12: Session 1- Patient repeats 1-2 syllable functional words with 50% accuracy provided a visual model by the clinician. See results below: Target Response Error Type 1. teeth clun neologism 2. golf nogolsh neologism 3. crown clanin neologism 4. rice rice - 5. money money - 6. horse horse - 7. doctor Stomach menesis Perseveration + neologism 8. legs Leg? that's it? leg - 9. wallet walwalleck Phonemic paraphasia 10. pizza pizza. I know that. - 03/14: Session 1- Patient repeats 1-2 syllable functional words with 30% accuracy provided a visual model by the clinician. Errors were typically phonemic paraphasias with the occasional neologism. See results below: Target Response Error Type 1. onion umion Phonemic paraphasia 2. chair air Phonemic paraphasia 3. zipper zipper - 4. chest shate neologism 5. boxing dockwis neologism 6. soldier soulmir Phonemic paraphasia 7. saw sawmich Neologism + perseveration 8. kitchen kitchen - 9. corn corn - 10. vacuum vactum Phonemic paraphasia Session 2- Patient repeats 1-2 syllable functional words with 10% accuracy provided a visual model by the clinician. Errors were typically phonemic paraphasias with the occasional neologism. See results below: Target Response Error Type 1. hat s- um, hat - 2. salad holad Phonemic paraphasia 3. chair Stomach attic Neologism + perseveration 4. bird Stomach umanick Neologism + perseveration 5. money kathya attic Phonemic paraphasia + neologism 6. hand hammock Phonemic paraphasia 7. rice dammish neologism 8. pool amicus neologism 9. glasses dimanick neologism 10. watch gamican neologism level Probe: Repeating functional phrases Target Response 1. Hi. Hi. 2. How are you? How are yule? 3. My name is Ynes. My name spill it. 4. I need help. I need united something. 5. I'm hungry. Nide medical under. 03/15: 1st session: Repeating of single words in the context of reading comprehension task today: 01/06, 17% accuracy, patient demonstrated poor awareness of her errors. Cloze cues were successful at eliciting target word on two instances, however this is not consistently successful 03/16: Session 1- Patient repeats 1-2 syllable functional words with 50% accuracy provided a visual model by the clinician. Errors were typically phonemic paraphasias. See results below: Target Response Error Type 1. bee bee - 2. doctor doctor - 3. beach beach - 4. level lever phonemic paraphasia 5. hand hand - 6. lamp ganter neologism 7. glove glug phonemic paraphasia 8. helmet helment phonemic paraphasia 9. coffee cofter phonemic paraphasia 10. baby baby - Probe: Repeating functional phrases Target Response 1. Hi. My. 2. How are you? Why are you? 3. My name is Ynes. My eater... (jargon) 4. I need help. I need kayla. 5. I'm hungry. I'm mentor. 6. I'm thirsty. My ever. 7. I need to use the toilet. (jargon) Session 2- Patient repeats 1-2 syllable functional words with 40% accuracy provided a visual model by the clinician. Errors were typically phonemic paraphasias and occasionally neologisms. See results below: Target Response Error Type 1. whale leborston neologism 2. house hout Phonemic paraphasia 3. bed den Phonemic paraphasia 4. dress gama Phonemic paraphasia 5. onion onion - 6. money many Phonemic paraphasia 7. road road - 8. football whipnar neologism 9. shoulder shoulder - 10. nurse nurse - 03/17: Session 1- Patient repeats 1-2 syllable functional words with 80% accuracy provided a visual model by the clinician, with credit provided for items that were accurate following multiple trials.Errors were typically phonemic paraphasias. See results below: Target Response Error Type 1. ball ball - 2. sheep Sheet, sheet, sheep Phonemic paraphasia x2 3. stomach stomach - 4. bus bent, but, bus Phonemic paraphasia x2 5. french professor french professor - 6. towels dowel, towels Phonemic paraphasia x1 7. peas teas, teas, tears Phonemic paraphasia x3 8. zipper Zippernight, ,zipper, zipper Phonemic paraphasia x1 9. soccer soccer - 10. crab Cow, crite, choirs Phonemic paraphasia x3 Probe: Repeating functional phrases Target Response 1. Hi. Hi. 2. How are you? T1: Hi owe tour? T2: Hi owe tart? 3. My name is Ynes. T1: My nert T2: Nines ert. 4. I need help. T1: My niners apartments. T2: My nine apartments. 5. I'm hungry. T1: Mine a none-is. T2: Mine dunion. 6. I'm thirsty. T1: Mine abundon. 7. I need to use the toilet. T1: I need abindon melinder. Reading Comprehension: Goal #1: The patient will identify the written word in a field of 2, given an auditory model with 80% accuracy. 03/11: Session 2- Patient identifies written words in a field of 2, given an auditory model with 81%accuracy. 03/12: Session 2- Patient identifies written words in a field of 2, given an auditory model with 50%accuracy. 03/16: Session 2- Patient identifies written words in a field of 2, given an auditory model with 67%accuracy. Goal #2: The patient will identify the written word to match a given object or picture with 80% accuracy in a field of 3 (presented in a vertical orientation). 03/12: Session 1- Patient identifies the written word from a field of 3, given a picture of an object, with 53% accuracy. 03/14: Session 2- Attempted but could not complete d/t patient complaining of not being able to see stimuli d/t them being blurry. 03/15: 1st session: Patient was given a pictured object/item and then presented with three words, written by clinician in a vertical presentation and held upright for her viewing. She then used the picture to 'underline' the matching written word. She independently manipulated the picture to aid hervision. Word to picture match (f of 2 words), presented vertically: 100% accuracy 1. 13 6. 13 2. 15 7. / 3. 13 8. / 4. 15 9. / 5. 13 10. / Word to picture match (f of 3 words), presented vertically: 83% accuracy 1. 6 6. 15 2. 13 7. / 3. 15 8. / 4. 13 9. / 5. 15 10. / 03/16: Session 2- Probe: Patient identifies written 2-3 word phrases from a field of 2, given a picture of an object with 50% accuracy. Written Expression: Goal #1: The patient will write functional words and short phrases related to personal information (e.g., name, address, date of ) with 90% accuracy given mod verbal/visual cues. 03/09: Session 2- Patient writes functional words and short phrases related to personal information.See results below: Name: 100% accuracy Address: Patient does not provide street number, street name, or apartment number. She did write inapartment number once clinician wrote in the street number and street name. She got 100% accuracy for city and state. Phone Number: 100% accuracy Occupation: Unable to complete. 03/12: Session 1- Patient writes functional words and short phrases related to personal information.See results below: Name: 100% accuracy Address: 100% accuracy following a self-correction Phone Number: 100% accuracy Occupation: 100% accuracy following request for clarification and mod cues from the clinician 03/15: 2nd session: Patient copied her first and last name accurately and independently. Probe: Patient presented with a pictured object/item and provided it's label verbally. She was asked to write the name of the object/item. Initial perseveration on the letter of her first name, however she recognized this error and accurately self corrected to write the first 2 letters of the word 'dog' (accurate for picture). Given two written foils of the accurate spelling, she quickly and accurately identified the correct spelling (and did so with 100% accuracy subsequently). Trials were continued: 1. 12/MC 2. 12/MC 3. 8/MC 4. 15* 5. 12 given initial letter 12 = partially correct spelling which most often included initial 2 letters of the word being written accurately MC = successful identification of the spelling given multiple choice *spelled aloud accurately, otherwise spelling aloud characterized by jargon letters PATIENT/FAMILY EDUCATION: Patient/Family Education: Patient/family education was provided today including: rehab goals and questions were addressed. Topic: Patient/Family education and training was completed today including: the role of Speech-Language Pathology aphasia questions were addressed Learner: patient Method of Education: Verbal Barriers to Learning/Education: fatigue, headache pain, and presence of language impairment Patient: needs further instruction and education Family: No family present. Patient/Family Goals: Patient states I want to get better. Team Communication: Conversation with patient's OT who is suspecting a right homonymous hemianopsia ?? Assessment /CLINICAL IMPRESSIONS: Ynes White is a female 50 y.o. 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 Today Ynes continues to demonstrate steady gains in repetition of 1-2 syllable words, comprehension of 1-step contextual directions with supports, auditory comprehension of objects from a fo6, and auditory comprehension of yes/no questions. Reading at the contextual single word level continues to be a strength which should be utilized to maximize her gains across all therapies. Patient She continues to benefit from a Supported Conversation for Adults with Aphasia (SCA) approach. Written iInformation regarding SCA has been posted in Ynes's room for her staff members to review and a copy has been left her in room to provide to her family members. Ynes remains appropriate for 30 min BID sessions for aphasia intervention based on herlevel of fatigue and headache pain. Ynes White currently presents with severe expressive and receptive aphasia, most consistent with Wernicke's type but with some deviation from typical Wernicke's type presentation. Patient appears to be able to follow some basic 1-step commands effectively provided context, models, slow auditory presentation of information, and tactile cues as needed. Repetition, object naming, word fluency,sentence completion, and responsive speech are all impaired. Ynes demonstrates a favorable response to use of gestures to assist with her auditory comprehension. Expressive language is characterized as fluent but mostly consists of word salad with many instances of jargon, neologisms, and paraphasias with occasional moments of intelligible discourse scattered throughout. Stefanies discourse could also be described as tangential and perseverative. She attempts to utilize gestures to augmenther expressive language, but is not always successful. She is also demonstrating breakdowns in reading comprehension at the short sentence level and significant deficits in written expression at the word level, compounded by impaired auditory comprehension preventing writing to dictation and impaired naming preventing written naming. These deficits impact the patient's ability to functionally comm unicate her wants, needs, and ideas and hold conversation. She presents with severe impairments in reading comprehension, however, she demonstrates some success with reading comprehension at the wordlevel, which appears to be a relative strength compared to her auditory comprehension. She exhibits significant breakdown in reading comprehension at the short sentence level. Ynes also demonstrates significant deficits in written expression at the single word level however this appears to be improving and her awareness of these errors appears better than her awareness of errors in verbal expression. She also demonstrates relative strength in copying words and sentences, as well as writing numbers. It has been determined that the patient demonstrates deficits that impact functioning in daily activities and hinder participation in life situations.??Patient currently requires assistance from others to communicate basic wants and needs and direct her medical care. Pt will continue to benefit from her needs being anticipated and simplified information presented to her. Information should be repeated and said in different ways, and augmented with pictures and gestures. The patient is demonstrating strengths in motivation and some intact basic expressive language skills which should be utilized during the patient's plan of care to maximize gains. Contextual factors that may impact the patient's ability to progress toward rehab goals include: severity of language impairment, need for physical assistance, tolerance level for therapy, and pain. Based on patient's tolerance level, it is recommended that patient participate in 30 minute BID sessions initially and build toward 60 minute sessions as tolerated. Given patient's age, independence prior to admission, and social/occupational demands, she would benefit from intensive ANESTHESIOLOGY PHYSICIAN ASSISTANT intervention. Based on the patient's rehab potential, motivation, prior level of function, and the contextual factors, the patient's prognosis is considered good. It is anticip ated that the patient will make functional gains in expressive and receptive language skills with intensive skilled 1:1 speech language pathology services in the inpatient rehabilitation setting. Functional Communication Measures ([place] [employer], 2002). The Functional Communication Measures (FCM???s) are a series of 7 point rating scales, ranging fromleast functional (Level 1) to most functional (Level 7). They have been developed by [employer] to describe different aspects of patient???s functional communication and swallowing abilities over the course of ANESTHESIOLOGY PHYSICIAN ASSISTANT intervention. ?? Spoken Language Comprehension Level 2: With consistent, maximal cues, the individual is able to follow simple directions, respond to simple yes/no questions in context, and respond to simple words orphrases related to personal needs. Spoken Language Expression Level 3: The communication partner must assume responsibility for structuring the communication exchange, and with consistent and moderate cueing, the individual can produce words and phrases that are appropriate and meaningful in context. Reading Level 3: The individual reads single letters and common words, and with consistent moderatecueing, can read some words that are less familiar, longer, and more complex. Writing Level 2: The individual writes single letters and common words with consistent maximal cueing. ?? GOALS: Psychiatric Nurse Goals: Projected Functional Communication Measures at discharge: Spoken Language Comprehension Level 4: Individual consistently responds accurately to simple yes/noquestions and occasionally follows simple directions without cues. Moderate contextual support is usually needed to understand complex sentences/messages. The individual is able to understand limited conversations about routine daily activities with familiar communication partners. Spoken Language Expression Level 4: The individual is successfully able to initiate communication using spoken language in simple, structured conversations in routine daily activities with familiar communication partners. The individual usually requires moderate cueing, but is able to demonstrate use of simple sentences (i.e., semantics, syntax, and morphology) and rarely uses complex sentences/messages. Reading Level 4: The individual reads words and phrases related to routine daily activities, and words that are less familiar, longer, and more complex. The individual usually requires moderate cueing to read sentences of approximately 5-7 words. Writing Level 3: The individual writes single letters and common words, and with consistent moderate cueing, can write some words that are less familiar, longer, and more complex. Short Term Goals: Auditory Comprehension: Goal #1: Patient will identify objects in a visual field of 4-6 with >80% accuracy provided minimal cues from the clinician and repetitions for fewer than 50% of trials. Goal #2: Patient will answer simple yes/no questions immediately after review with >70% accuracyprovided moderate cues for attention and initiation. Goal #3: Patient will follow simple 1-step commands related to functional environment with >70% accuracy provided moderate verbal/tactile/visual cues in order to increase functional integration into environment. ?? Expressive Language: Goal #1: Patient will recite automatic speech tasks given moderate cues with >70% accuracy. Goal #2: Patient will name objects (real or pictured) to confrontation with >50% accuracy provided maximum verbal cues. Goal #3: Patient will repeat 1-2 syllable functional words with >70% accuracy provided a visual model by the clinician. ?? Reading Comprehension: Goal #1: The patient will identify the written word in a field of 2, given an auditory model with 80% accuracy. Goal #2: The patient will identify the written word to match a given object or picture with 80% accuracy in a field of 3 (presented in a vertical orientation). Written Expression: Goal #1: The patient will write functional words and short phrases related to personal information (e.g., name, address, date of ) with 90% accuracy given mod verbal/visual cues. ?? Plan RECOMMENDATIONS: Patient will continue to benefit for further ANESTHESIOLOGY PHYSICIAN ASSISTANT intervention in this setting to address aphasia management and intervention needs. ?? Recommend inpatient rehabilitation ANESTHESIOLOGY PHYSICIAN ASSISTANT services: Patient will be seen for a minimum of 5x/week @ 30minutes BID due to current tolerance level. ?? Communication Access and Shared Decision Making Recommendations Please support communication access and shared decision making ability by doing the following: ?? Support Comprehension: ?? Have a pen and paper ready when communicating. ?? Please present information slowly and simplify. Augment with drawings, diagrams, gestures and pointing. ?? Ask one question at a time. ?? Have only one person speak at a time. ?? Environmental modifications:? Simplify the environment: ?? Carryover/Discharge??and Healthcare Decision making considerations ?? Will need family support for the successful carryover of discharge recommendations. ?? Currently comprehension of non-contextual information is a barrier Oliva Martinez MS CCC-ANESTHESIOLOGY PHYSICIAN ASSISTANT 03/17/2020 15:11 * Eliza Douglas, OT - 03/17/2020 1425 EDT [facility] Rehabilitation Therapy Inpatient Rehabilitation [facility] Occupational Therapy Encounter Note Date of Service: 03/17/2020 SUBJECTIVE: Im glad you noticed Pt was happy be working on vision tasks, she was concerned that no one noticed. 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 SESSION 1 OBJECTIVE: Start time: 1000 Treatment time: 30 Scheduled time: 30 Total Therapy Minutes: 30 minute(s) Interventions included: Neuromuscular Re-education Vision: Parquetry: Pt completed parquetry tasks with 2 errors. Required cues to turn the blocks over to reveal their color. At completion pt indicated headache and nausea. Vergence: Provided pt with 2 large objects, 1 at 4 ft away and 1 at 5 feet away. Pt instructed to alternate focus from one to the other. Completed 2x 5 cycles. Patient/Family Education: See above Team Communication: Interdisciplinary team conf ASSESSMENT: Visually and cognitively demanding tasks are contributing to her symptoms of head pain and nausea. Patient is happy to see that her visual deficits are being addressed. This is a challenging task but we are progressing slowly. Improvement will likely be subjective given testing is currently challenging with her aphasia. PLAN: Continue OT Meal prep Vision tasks Ambulatory ADL BITs Pager: [phone] Eliza Douglas OT, 03/17/2020, 7:53 . * Jaden Rutherford MD - 03/16/2020 1325 EDT Physiatry Progress Note Admit Date: 03/02/2020 Hospital Day: LOS: 14 days Date of Service: 03/16/2020 Chief Complaint: Left temporoparietal hemorrhage status post decompressive craniectomy, setting of central venous thrombosis 02/14/2020 Subjective: Remains with expressive and receptive language deficits limiting history. No further leaking from her gastrostomy tube after taping over the leak, just outside the bumper. No headache this morning. No evidence of GI discomfort. Current Facility-Administered Medications: acetaminophen (TYLENOL) tablet 650 mg oral Q4H PRN aspirin chewable tablet 81 mg oral DAILY bisacodyL (DULCOLAX) suppository 10 mg rectal Q48H PRN calcium carbonate (TUMS) 200 mg calcium (500 mg) per chewable tablet tablet,chewable 1 Tab oral QIDPRN docusate (COLACE) liquid 100 mg oral BID PRN enoxaparin (LOVENOX) injection 80 mg subcutaneous Q12H guaiFENesin tablet 200 mg oral Q6H PRN HYDROmorphone (DILAUDID) tablet 2-4 mg oral Q4H PRN lisinopriL (PRINIVIL) tablet 20 mg oral DAILY melatonin tablet 3 mg oral QHS metoprolol (LOPRESSOR) tablet 25 mg oral BID multivitamin (FLINTSTONES) chewable tablet 1 Tab oral DAILY nicotine (NICODERM CQ) 7 mg/24 hr patch 1 Patch transdermal Q24H ondansetron (ZOFRAN-ODT) disintegrating tablet 4 mg oral Q4H PRN pantoprazole (PROTONIX) tablet 40 mg oral DAILY papain-alpha amylase-cellulase (CLOG ZAPPER) 2-5 mL feeding tube PRN QUEtiapine (SEROQUEL) tablet 25 mg oral QHS senna (SENOKOT) tablet 1 Tab oral BID PRN Objective/Physical Exam: VS: Patient Vitals for the past 8 hrs: BP Pulse Resp Temp 03/16/20 0637 (!) 87/57 84 14 35.7 ??C (96.3 ??F) Pain: Patient Vitals for the past 8 hrs: Numeric Pain Level (Scale 1-10) 03/16/20 1046 0 03/16/20 0815 0 03/16/20 0723 0 Weight: Weight : 82.2 kg (181 lb 4.8 oz) Glucose Readings (last 8 readings): No results for input(s): GLUCOSEFINGE in the last 72 hours. I&O: Intake/Output Summary (Last 24 hours) at 03/16/2020 1325 Last data filed at 03/16/2020 0400 Gross per 24 hour Intake 240 ml Output -- Net 240 ml Exam: Gen: Alert, pleasant, no distress HEENT: Left decompressive hemicraniectomy site slightly sunken. No clear visual field cut. No facial droop. Pharynx is clear. Neck supple. Mucosal membranes are moist Skin: no rashes Cardiac: Cor RRR Pulmonary: clear to auscultation bilaterally Abdomen: normal bowel sounds, soft, nontender to palpation, PEG tube has a small split in it just above the bumper, which I applied with tape over with no further evidence of leaking. Musculoskeletal: no joint tenderness, deformity or swelling, no muscular tenderness noted, full range of motion without pain Neuro: Expressive greater than receptive aphasia affect: Alert Motor: No focal motor weakness. There is some relative right lower extremity weakness compared to the other extremities but does not appear clinically significant. Tone normal Reflexes: trace Sensation: No extinction no clear focal sensory loss Cerebellar: no tremors Labs: I have personally reviewed CBC: Lab Results Component Value Date WBC 6.43 03/02/2020 RBC 4.10 03/02/2020 HGB 13.2 03/02/2020 HCT 39.6 03/02/2020 MCV 97 03/02/2020 MCH 32.2 03/02/2020 MCHC 33.3 03/02/2020 PLT 462 (H) 03/02/2020 NEUTROABS 5.03 02/14/2020 BMP: Lab Results Component Value Date NA 134 (L) 03/07/2020 K 5.1 (H) 03/07/2020 CL 102 03/07/2020 CO2 24 03/07/2020 BUN 26 03/07/2020 CREATININE 0.57 03/07/2020 CALCIUM 8.8 02/14/2020 MG 1.7 03/02/2020 PHOS 4.6 (H) 03/07/2020 LABALBU 3.9 05/07/2001 Assessment/Problems: (update problem list daily as appropriate) Patient Active Problem List Diagnosis Date Noted ??? *(H)Left-sided nontraumatic intracerebral hemorrhage ([facility]) 03/02/2020 Priority: Medium Status post decompressive hemicraniectomy ??? Brain herniation ([facility]) 02/17/2020 Priority: Medium ??? Cerebral edema ([facility]) 02/17/2020 Priority: Medium ??? 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 (H)Cerebral venous thrombosis 02/14/2020 Priority: Medium ??? Encounter for insertion or removal of intrauterine contraceptive device 02/12/2020 Priority: Medium ??? Nicotine dependence, unspecified, uncomplicated 02/12/2020 Priority: Medium ??? Perimenopausal 02/12/2020 Priority: Medium ??? Post concussion syndrome 02/12/2020 Priority: Medium ??? Tobacco abuse 12/02/2012 Priority: Medium ??? Chronic low back pain 10/13/2012 Priority: Medium ??? Back pain 09/25/2012 Priority: Medium Plan: 1. Left frontal intraparenchymal hemorrhage: Status post decompressive craniectomy. Patient with residual mild right-sided weakness, significant expressive and receptive aphasia, dysphagia. Full PT, OT, ANESTHESIOLOGY PHYSICIAN ASSISTANT to address mobility, self care communication and swallowing function. 24 hour rehab nursing for self care deficits. Helmet on when out of bed. Diet advanced to regular consistency. 2. 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 Evidence of left IJ, sigmoid and transverse sinuses as well. Now on therapeutic dose Lovenox. Low molecular weight heparin level obtained and was subtherapeutic with Lovenox adjusted to 80 mg every 12 hours. Level is therapeutic. I havecontacted hematology was working on setting up follow-up in [facility] clinic 3. Right upper lobe pulmonary embolism, left upper extremity DVT: Now on therapeutic dose Lovenox. ?? 4. History of anxiety/depression: Monitor clinically. Start to taper at bedtime Seroquel.. Considermedical psychology consultation as language deficits allow. She has listed allergies to citalopram and duloxetine. 5. Nutrition: PEG tube placed 02/18/2020. Goal is to keep the tube in place for at least 6 weeks after placement, as reviewed with Dr. Branch from acute care surgery. Diet is currently regular consistency Jaden Rutherford MD 03/16/2020 13:25 * Aida Goodman DPT - 03/16/2020 0933 EDT [facility] Rehabilitation Therapy Inpatient Rehabilitation Center [facility] Physical Therapy Encounter Note Date of Service: 03/16/2020 , Activity: Level of risk of Harm B, Activity as tolerated, , Additional Precautions Information: LBone flap precautions (helmet OOB), R Rooke Boot in bed, PEG tube SUBJECTIVE: Through aphasic speech patient reported that she is ready for therapy. OBJECTIVE: Start time: 1130 Total Therapy Minutes: 30 minute(s) Interventions completed today: Vital Signs: Pre: 122/91 Neuromuscular re-education: ?? Pt given a list of 8 previously identified items to find on the unit. With verbal step by step cuing for each item, pt was able to find four of the 8 items while ambulating with a RW with close supervision and without a device with minimal contact assist. All items were located on the right sideof the hallway to facilitate scanning to the right. Pt required increased time to find the items and occasional cuing for scanning to the right. 2nd Session Time: Start time: 1500 Total Therapy Minutes: 0 minutes Pt declined / session stating through aphasic speech that she feels tired and off Patient/Family Education: The benefits of physical therapy Team Communication: ?? With nursing regarding pt declining 12/27 session ASSESSMENT: Pt tolerated session well with focus on scanning to the right and attention to task while ambulating for endurance. Pt did not have any gross loss of balance. She does however demonstratedecreased heel to toe gait pattern and increase ER when ambulating without a device. PLAN: ?? Gait without a device for endurance and strength ?? Stairs for endurance and leg strength ?? Obstacle negotiation, toe taps, single-limb stance variations for balance ?? Closed chain exercises for leg strength. ?? Path finding, Neuro re-ed Contact information: Pager: [phone] Aida Goodman DPT 03/16/2020 17:07 * Eliza Douglas S, OT - 03/16/2020 0754 EDT [facility] Rehabilitation Therapy Inpatient Rehabilitation [facility] Occupational Therapy Encounter Note Date of Service: 03/16/2020 SUBJECTIVE: Pt indicated that earlier she remembered to ring the bel to go to the bathroom, but then came out on her own and she knew she wasn't suppose to. SESSION 1 OBJECTIVE: Start time: 1030 Treatment time: 30 Scheduled time: 30 Total Therapy Minutes: 30 minute(s) Interventions included: Self-Care/Home Management Stood at sink with min contact assist to brush teeth. Cues to locate the toothpaste on her far leftside. She was confused, trying to read labels on the lotion bottles, indicating uncertainty if it was toothpaste. Made the bed with min contact assist, changed pillowcases - sat 2 times due to fatigue and not feeling right. Symptoms resolved with rest. Pt indicated she was cold - ambulated to closet with min contact assist - retrieved sweatshirt appropriately without cues. SESSION 2 OBJECTIVE: Start time: 1400 Treatment time: 30 Scheduled time: 30 Total Therapy Minutes: 30 minute(s) Interventions included: Self-Care/Home Management Pt indicated that she was very tired. She had not eaten her lunch indicating too big. Lunch was broken down to 3 small dishes, chicken, tomatoes and applesauce that were put on her table. yes!. Pt proceeded to eat ~30% of what was presented. Protein shake was poured into a cup, which she drank 50% of. Patient/Family Education: Not applicable Team Communication: Discussed with Nurse Preethi martinez with presenting small dishes of food and 1 drink. Nsg to start a list of the foods pts likes to support nutrition. ASSESSMENT: Pt more fatigued today. She appears to have greater level of understanding, but this may be just learning routine and typical expectations from familiar staff. I believe pt is visually overstimulated when presented her meal tray. Responded much better to small dishes of food and a single drink. She demonstrates times of insight stating this is gonna be a while. Fatigue/activity tolerance continue to be barriers. Pt is currently benefiting from shortened sessions. PLAN: Continue OT. BITS Scanning Pager: [phone] Eliza Douglas OT, 03/16/2020, 7:54 * Oliva Martinez, [facility]-ANESTHESIOLOGY PHYSICIAN ASSISTANT - 03/16/2020 2277 EDT Speech-Language Pathology Daily and Current Progress Note ANESTHESIOLOGY PHYSICIAN ASSISTANT Diagnosis: Aphasia Medical Diagnosis: Cerebral venous thrombosis and resultant intraparenchymal hemorrhage in the leftfrontotemporal area Date of Onset: 02/14/20 Date of Referral: 03/02/20 Subjective/Objective SUBJECTIVE: 1st session: Do you need airplane (light)? I don't know how I'm doing it. I'm like that's wrong! You did it wrong Ynes. That felt good. (re: yes/no questions) 2nd session: I got a little... We did some (jargon) 12-1 and it made me really tired so I just lid(slept). Nertous materious. Miracle nearicle nearicle miracle. Nearicle miracle? OBJECTIVE: Date of Service: 03/16/2020 First Session: Start Time: 1000 Total Therapy minutes: 30 minute(s) comm-cog tx Second Session: Start Time: 1300 Total Therapy minutes: 30 minute(s): comm-cog tx Current Treatment Objectives: Auditory Comprehension: Goal #1: Patient will identify objects in a visual field of 4-6 with >80% accuracy provided minimal cues from the clinician and repetitions for fewer than 50% of trials. 03/11: Session 2- Patient identifies objects in a visual field of 4 with 100% accuracy provided written word and auditory presentation of the word. Patient identifies objects in a visual field of 6 with 80% accuracy provided written word and auditory presentation of the word. Patient requires significant repetition of each item provided field of 6 and encouragement as she was hesitant to answer frequently stating that it made her nervous to have more than 4 items to choose from. 03/12: Session 2- Patient identifies objects in a visual field of 4 with 80% accuracy provided written word and auditory presentation of the word. 03/14: Session 1- Patient identifies objects in a visual field of 4 with 70% accuracy provided written word and auditory presentation of the word. 03/15: 2nd session: Object ID (f of 4) given label and function: 88% accuracy 1. 15 6. 15 2. 15 7. 8 3. 15 8. 13 4. 15 9. / 5. 15 10. / Object ID (f of 4) given label ONLY: 50% accuracy 1. 13 6. 6 2. 15 7. 6 3. 6 8. 6 4. 13 9. 15 5. 13 10. 6 03/16: Session 1- Patient identifies objects in a visual field of 4 with 80% accuracy provided written word and auditory presentation of the word. Patient requires repetition of ~50% of items providedfield of 4. Goal #2: Patient will answer simple yes/no questions immediately after review with >70% accuracyprovided moderate cues for attention and initiation. 03/07: Session 1: Patient responded to Y/N questions with jargon and some intelligible word related to questions (e.g., It was my father's name in response to Is your last name 'Cindy?'). 03/08: Session 1- Patient responds to simple Y/N questions with 30% accuracy. Errorless learning wasattempted with mixed success. 1. 6- Error: Inaccurate attempt at the task item 2. 6- Error: Inaccurate attempt at the task item 3. 6- Error: Inaccurate attempt at the task item 4. 9- Repeated: Accurate, after instructions are repeated (errorless learning utilized) 5. 6- Error: Inaccurate attempt at the task item (errorless learning attempted) 6. 9- Repeated: Accurate, after instructions are repeated (errorless learning utilized) 7. 6- Error: Inaccurate attempt at the task item (errorless learning attempted) 8. 6- Error: Inaccurate attempt at the task item (errorless learning attempted) 9. 9- Repeated: Accurate, after instructions are repeated (errorless learning utilized) 10. 6- Error: Inaccurate attempt at the task item 03/09: Session 1- Patient responds to simple Y/N questions with 60% accuracy. Today patient benefitsfrom written yes/no board and gestures for prompting. 1. 6- Error: Inaccurate attempt at the task item; 9- repeated 2. 9- Repeated: Accurate, after instructions are repeated 3. 15- Complete: accurate, responsive, complete, prompt, efficient 4. 6- Error: Inaccurate attempt at the task item 5. 13- Complete-delayed: Accurate, responsive, complete or complex, delayed 6. 15- Complete: accurate, responsive, complete, prompt, efficient 7. 13- Complete-delayed: Accurate, responsive, complete or complex, delayed 8. 13- Complete-delayed: Accurate, responsive, complete or complex, delayed 9. 13- Complete-delayed: Accurate, responsive, complete or complex, delayed 10. 6- Error: Inaccurate attempt at the task item 03/10: Session 1- Patient responds to simple Y/N questions with 20% accuracy. Today patient benefitsfrom written yes/no board and gestures for prompting. 1. 6- Error: Inaccurate attempt at the task item 2. 6- Error: Inaccurate attempt at the task item 3. 8- Cued: Accurate, after cue is given 4. 15- Complete: accurate, responsive, complete, prompt, efficient 5. 6- Error: Inaccurate attempt at the task item 6. 6- Error: Inaccurate attempt at the task item 7. 6- Error: Inaccurate attempt at the task item 8. 15- Complete: accurate, responsive, complete, prompt, efficient 9. 6- Error: Inaccurate attempt at the task item 10. 6- Error: Inaccurate attempt at the task item 03/11: Session 1- Patient responds to simple Y/N questions with 50% accuracy. Today patient benefitsfrom written yes/no board and gestures for prompting. 1. 9- Repeated: Accurate, after instructions are repeated 2. 15- Complete: accurate, responsive, complete, prompt, efficient 3. 15- Complete: accurate, responsive, complete, prompt, efficient 4. 6- Error: Inaccurate attempt at the task item 5. 8- Cued: Accurate, after cue is given 6. 6- Error: Inaccurate attempt at the task item 7. 6- Error: Inaccurate attempt at the task item 8. 15- Complete: accurate, responsive, complete, prompt, efficient 9. 6- Error: Inaccurate attempt at the task item 10. 15- Complete: accurate, responsive, complete, prompt, efficient 03/12: Session 2- Patient responds to simple Y/N questions with 60% accuracy with credit given for answers that were correct following a delay or repetition of the stimulus. Today patient benefits from written yes/no board and gestures for prompting. 1. 13- Complete-delayed: Accurate, responsive, complete or complex, delayed 2. 6- Error: Inaccurate attempt at the task item 3. 9- Repeated: Accurate, after instructions are repeated 4. 15- Complete: accurate, responsive, complete, prompt, efficient 5. 13- Complete-delayed: Accurate, responsive, complete or complex, delayed 6. 6- Error: Inaccurate attempt at the task item 7. 6- Error: Inaccurate attempt at the task item 8. 15- Complete: accurate, responsive, complete, prompt, efficient 9. 6- Error: Inaccurate attempt at the task item 10. 15- Complete: accurate, responsive, complete, prompt, efficient 03/14: Session 2- Patient responds to simple Y/N questions with 60% accuracy with credit given for answers that were correct following a delay or repetition of the stimulus. Today patient benefits from written yes/no board and gestures for prompting. 1. 6- Error: Inaccurate attempt at the task item 2. 15- Complete: accurate, responsive, complete, prompt, efficient 3. 6- Error: Inaccurate attempt at the task item 4. 13- Complete-delayed: Accurate, responsive, complete or complex, delayed 5. 2- Attention: No response, but patient attends to the guido 6. 13- Complete-delayed: Accurate, responsive, complete or complex, delayed 7. 15- Complete: accurate, responsive, complete, prompt, efficient 8. 10- Corrected: Accurate, self-corrected 9. 15- Complete: accurate, responsive, complete, prompt, efficient 10. 15- Complete: accurate, responsive, complete, prompt, efficient 03/16: Session 1 - Patient responds to simple Y/N questions with 80% accuracy with credit given for answers that were correct following a delay or repetition of the stimulus. Today patient benefits from written yes/no board and gestures for prompting. 1. 9- Repeated: Accurate, after instructions are repeated 2. 13- Complete-delayed: Accurate, responsive, complete or complex, delayed 3. 13- Complete-delayed: Accurate, responsive, complete or complex, delayed 4. 6- Error: Inaccurate attempt at the task item 5. 13- Complete-delayed: Accurate, responsive, complete or complex, delayed 6. 15- Complete: accurate, responsive, complete, prompt, efficient 7. 15- Complete: accurate, responsive, complete, prompt, efficient 8. 10- Corrected: Accurate, self-corrected 9. 15- Complete: accurate, responsive, complete, prompt, efficient 10. 15- Complete: accurate, responsive, complete, prompt, efficient Goal #3: Patient will follow simple 1-step commands related to functional environment with >70% accuracy provided moderate verbal/tactile/visual cues in order to increase functional integration into environment. 15: Session 2- Patient follows simple 1-step commands related to environment with 0% accuracy independently. Accuracy increases to 90% accuracy following a model by the clinician with slowed auditory presentation of directions. 03/10: Session 1- Patient follows simple 1-step commands related to environment with 0% accuracy independently. Accuracy increases to 90% accuracy following a model by the clinician with slowed auditory presentation of directions. 03/12: Session 1- Patient follows simple 1-step commands related to environment with 0% accuracy independently. Accuracy increases to 62% accuracy following a model by the clinician with slowed auditory presentation of directions. 03/14: Session 2- Patient follows simple 1-step commands related to environment with 100% accuracy following a model by the clinician with slowed auditory presentation of directions. 03/15: / session: Patient followed 1 step commands in the context of therapy tasks today giveninitial demonstration. 03/16: Session 2- Patient follows simple 1-step commands related to environment with 90% accuracy following a model by the clinician with slowed auditory presentation of directions. Expressive Language: Goal #1: Patient will recite automatic speech tasks given moderate cues with >70% accuracy. 03/08: Session 1- Patient recites automatic speech tasks with the clinician. See results below: 1-10: 100% accuracy following a model The Alphabet: Unable to perform in unison Months of the Years: Attempted to have patient repeat each month after the clinician: November, December, (jargon), (jargon), , June, April medication, June compation, sincation medication,ekaterina, French, alejandra Vigil, Liliana 03/09: Session 1- Patient recites automatic speech tasks with the clinician. See results below: 1-10: 100% accuracy following a starter cue one... The Alphabet: T1: A, me, S, d, 8, q, A, me, d, ec, q, g, h, eed, h ; T2: Patient was able to achieve 50% in unison with the clinician but eventually perseverated on w Days of the Week: Patient perseverated on w, k despite max cues, models, and attempts to perform in unison Session 2- Patient recites automatic speech tasks with the clinician. See results below: 1-10: 80% accuracy following a repetition of the instructions; 80% accuracy in trial 2 following a repetition of the instructions. The Alphabet: A, 7 you mean? following max cues and models Days of the Week: Patient perseverated on w, k despite max cues, models, and attempts to perform in unison 03/10: Session 1- Patient recites automatic speech tasks with the clinician. See results below: 1-10: 100% accuracy The Alphabet: a, q, q, jews, each, l, l, elf Days of the Week: w, q, w, q, w, q, l, q, l, q 03/12: Session 2- Patient recites automatic speech tasks with the clinician. See results below: 1-10: 90% accuracy The Alphabet: l, n, h, stomich, a, m, h, m, etch, is it etch? Days of the Week: elmen, elmen threemen, riley three hundred, h, h, eight? No, stomach 03/14: Session 2- Patient recites automatic speech tasks with the clinician. See results below: 1-10: 90% accuracy Days of the Week: feminal, lessons, lezimen... 03/16: Session 1- Patient recites automatic speech tasks with the clinician. See results below: 1-10: 0% accuracy Days of the Week: drama, bever, mener, sever... Goal #2: Patient will name objects (real or pictured) to confrontation with >50% accuracy provided maximum verbal cues. Probe: naming an object from a fo2 multiple choice- 20% accuracy (patient struggling with repeatingthe words, producing neologisms or paraphasias) 03/15: 2nd session: Repeating name of pictured object (in spontaneous context) in the context of a written expression task: ~50% accuracy (with partial credit for spelling a word out loud accurately!) 1. 6 2. 6 3. 15 4. 15 5. 8* * spelled the word out loud correctly! 03/16: Session 1- Patient names real pictured objects to confrontation provided maximum cues (phonemic, semantic, cloze, repetition, etc.) with 0% accuracy. Target Response 1. Earth derb (max cues) 2. door dargis (max cues) 3. pants stargus (max cues) 4. boxing dargus (max cues) 5. taco targus (max cues) Goal #3: Patient will repeat 1-2 syllable functional words with >70% accuracy provided a visual model by the clinician. 03/09: Session 2- Patient repeats 1-2 syllable functional words with 10% accuracy provided a visual model by the clinician. For 60% of trials patient produced neologisms and for 30% of trials patient produced phonemic paraphasias. See results below: 2. 6- Error: Inaccurate attempt at the task item; neologism 3. 6- Error: Inaccurate attempt at the task item; neologism 4. 15- Complete: accurate, responsive, complete, prompt, efficient 5. 14- Distorted: accurate, responsive, complete or complex, prompt, distorted; phonemic paraphasia 6. 6- Error: Inaccurate attempt at the task item; neologism 7. 6- Error: Inaccurate attempt at the task item; neologism 8. 14- Distorted: accurate, responsive, complete or complex, prompt, distorted; phonemic paraphasia 9. 14- Distorted: accurate, responsive, complete or complex, prompt, distorted; phonemic paraphasia 10. 6- Error: Inaccurate attempt at the task item; neologism 03/10: Session 1- Patient repeats 1-2 syllable functional words with 30% accuracy provided a visual model by the clinician. For 70% of trials patient produced neologisms. See results below: 1. 8- Cued: Accurate, after cue is given; neologism for first few trials; required tactile and visual cues 2. 15- Complete: accurate, responsive, complete, prompt, efficient 3. 6- Error: Inaccurate attempt at the task item; neologism 4. 6- Error: Inaccurate attempt at the task item; neologism 5. 15- Complete: accurate, responsive, complete, prompt, efficient 6. 15- Complete: accurate, responsive, complete, prompt, efficient 7. 6- Error: Inaccurate attempt at the task item; neologism 8. 6- Error: Inaccurate attempt at the task item; neologism 9. 6- Error: Inaccurate attempt at the task item; neologism 10. 6- Error: Inaccurate attempt at the task item; neologism Session 2- Patient repeats 1-2 syllable functional words with 30% accuracy provided a visual model by the clinician. For 70% of trials patient produced neologisms. 03/11: Session 1- Patient repeats 1-2 syllable functional words with 0% accuracy provided a visual model by the clinician. See results below: Target Response 1. socks stomach 2. chair Stomach mesausen 3. finger megas megasarus 4. baby Lady mesasus 5. helmet helmamarier 6. Earth siroath 7. mandaen churchtons 8. pepper lymins 9. shorts short hundreds 10. sink [place]; sank; sank 4/18: Session 1- Patient repeats 1-2 syllable functional words with 50% accuracy provided a visual model by the clinician. See results below: Target Response Error Type 1. teeth clun neologism 2. golf nogolsh neologism 3. crown clanin neologism 4. rice rice - 5. money money - 6. horse horse - 7. doctor Stomach menesis Perseveration + neologism 8. legs Leg? that's it? leg - 9. wallet walwalleck Phonemic paraphasia 10. pizza pizza. I know that. - 03/14: Session 1- Patient repeats 1-2 syllable functional words with 30% accuracy provided a visual model by the clinician. Errors were typically phonemic paraphasias with the occasional neologism. See results below: Target Response Error Type 1. onion umion Phonemic paraphasia 2. chair air Phonemic paraphasia 3. zipper zipper - 4. chest shate neologism 5. boxing dockwis neologism 6. soldier soulmir Phonemic paraphasia 7. saw sawmich Neologism + perseveration 8. kitchen kitchen - 9. corn corn - 10. vacuum vactum Phonemic paraphasia Session 2- Patient repeats 1-2 syllable functional words with 10% accuracy provided a visual model by the clinician. Errors were typically phonemic paraphasias with the occasional neologism. See results below: Target Response Error Type 1. hat s- um, hat - 2. salad holad Phonemic paraphasia 3. chair Stomach attic Neologism + perseveration 4. bird Stomach umanick Neologism + perseveration 5. money kathya attic Phonemic paraphasia + neologism 6. hand hammock Phonemic paraphasia 7. rice dammish neologism 8. pool amicus neologism 9. glasses dimanick neologism 10. watch gamican neologism level Probe: Repeating functional phrases Target Response 1. Hi. Hi. 2. How are you? How are yule? 3. My name is Ynes. My name spill it. 4. I need help. I need united something. 5. I'm hungry. [facility]ide medical under. 03/15: 1st session: Repeating of single words in the context of reading comprehension task today: 01/06, 17% accuracy, patient demonstrated poor awareness of her errors. Cloze cues were successful at eliciting target word on two instances, however this is not consistently successful 03/16: Session 1- Patient repeats 1-2 syllable functional words with 50% accuracy provided a visual model by the clinician. Errors were typically phonemic paraphasias. See results below: Target Response Error Type 1. bee bee - 2. doctor doctor - 3. beach beach - 4. level lever phonemic paraphasia 5. hand hand - 6. lamp ganter neologism 7. glove glug phonemic paraphasia 8. helmet helment phonemic paraphasia 9. coffee cofter phonemic paraphasia 10. baby baby - Probe: Repeating functional phrases Target Response 1. Hi. My. 2. How are you? Why are you? 3. My name is Ynes. My eater... (jargon) 4. I need help. I need kayla. 5. I'm hungry. I'm mentor. 6. I'm thirsty. My ever. 7. I need to use the toilet. (jargon) Session 2- Patient repeats 1-2 syllable functional words with 40% accuracy provided a visual model by the clinician. Errors were typically phonemic paraphasias and occasionally neologisms. See results below: Target Response Error Type 1. whale leborston neologism 2. house hout Phonemic paraphasia 3. bed den Phonemic paraphasia 4. dress gama Phonemic paraphasia 5. onion onion - 6. money many Phonemic paraphasia 7. road road - 8. football whipnar neologism 9. shoulder shoulder - 10. nurse nurse - Reading Comprehension: Goal #1: The patient will identify the written word in a field of 2, given an auditory model with 80% accuracy. 03/11: Session 2- Patient identifies written words in a field of 2, given an auditory model with 81%accuracy. 03/12: Session 2- Patient identifies written words in a field of 2, given an auditory model with 50%accuracy. 03/16: Session 2- Patient identifies written words in a field of 2, given an auditory model with 67%accuracy. Goal #2: The patient will identify the written word to match a given object or picture with 80% accuracy in a field of 3 (presented in a vertical orientation). 03/12: Session 1- Patient identifies the written word from a field of 3, given a picture of an object, with 53% accuracy. 03/14: Session 2- Attempted but could not complete d/t patient complaining of not being able to see stimuli d/t them being blurry. 03/15: 1st session: Patient was given a pictured object/item and then presented with three words, written by clinician in a vertical presentation and held upright for her viewing. She then used the picture to 'underline' the matching written word. She independently manipulated the picture to aid hervision. Word to picture match (f of 2 words), presented vertically: 100% accuracy 1. 13 6. 13 2. 15 7. / 3. 13 8. / 4. 15 9. / 5. 13 10. / Word to picture match (f of 3 words), presented vertically: 83% accuracy 1. 6 6. 15 2. 13 7. / 3. 15 8. / 4. 13 9. / 5. 15 10. / 03/16: Session 2- Probe: Patient identifies written 2-3 word phrases from a field of 2, given a picture of an object with 50% accuracy. Written Expression: Goal #1: The patient will write functional words and short phrases related to personal information (e.g., name, address, date of ) with 90% accuracy given mod verbal/visual cues. 03/09: Session 2- Patient writes functional words and short phrases related to personal information.See results below: Name: 100% accuracy Address: Patient does not provide street number, street name, or apartment number. She did write inapartment number once clinician wrote in the street number and street name. She got 100% accuracy for city and state. Phone Number: 100% accuracy Occupation: Unable to complete. 03/12: Session 1- Patient writes functional words and short phrases related to personal information.See results below: Name: 100% accuracy Address: 100% accuracy following a self-correction Phone Number: 100% accuracy Occupation: 100% accuracy following request for clarification and mod cues from the clinician 03/15: 2nd session: Patient copied her first and last name accurately and independently. Probe: Patient presented with a pictured object/item and provided it's label verbally. She was asked to write the name of the object/item. Initial perseveration on the letter of her first name, however she recognized this error and accurately self corrected to write the first 2 letters of the word 'dog' (accurate for picture). Given two written foils of the accurate spelling, she quickly and accurately identified the correct spelling (and did so with 100% accuracy subsequently). Trials were continued: 1. 12/MC 2. 12/MC 3. 8/MC 4. 15* 5. 12 given initial letter 12 = partially correct spelling which most often included initial 2 letters of the word being written accurately MC = successful identification of the spelling given multiple choice *spelled aloud accurately, otherwise spelling aloud characterized by jargon letters PATIENT/FAMILY EDUCATION: Patient/Family Education: Patient/family education was provided today including: rehab goals and questions were addressed. Topic: Patient/Family education and training was completed today including: the role of Speech-Language Pathology aphasia questions were addressed Learner: patient Method of Education: Verbal Barriers to Learning/Education: fatigue, headache pain, and presence of language impairment Patient: needs further instruction and education Family: No family present. Patient/Family Goals: Patient states I want to get better. Team Communication: Conversation with patient's OT who is suspecting a right homonymous hemianopsia ?? Assessment /CLINICAL IMPRESSIONS: Ynes White is a female 50 y.o. 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 Ynes demonstrated good engagement and perseverance during therapy tasks today. She continues to demonstrate better gains during her earlier sessions and decreased accuracy and gains during her later sessions in the day. Ynes demonstrated improvements today in auditory comprehension of yes/no questions and repetition of 1-2 syllable words. Reading at the contextual single word level continues to be a strength which should be utilized to maximize her gains across all therapies. Patient She continues to benefit from a Supported Conversation for Adults with Aphasia (SCA) approach. Written iInformation regarding SCA has been posted in Ynes's room for her staff members to review and a copy has been left her in room to provide to her family members. Ynes remains appropriate for 30 min BID sessions for aphasia intervention based on her level of fatigue and headache pain. Ynes White currently presents with severe expressive and receptive aphasia, most consistent with Wernicke's type but with some deviation from typical Wernicke's type presentation. Patient appears to be able to follow some basic 1-step commands effectively provided context, models, slow auditory presentation of information, and tactile cues as needed. Repetition, object naming, word fluency,sentence completion, and responsive speech are all impaired. Ynes demonstrates a favorable response to use of gestures to assist with her auditory comprehension. Expressive language is characterized as fluent but mostly consists of word salad with many instances of jargon, neologisms, and paraphasias with occasional moments of intelligible discourse scattered throughout. Ynes's discourse could also be described as tangential and perseverative. She attempts to utilize gestures to augmenther expressive language, but is not always successful. She is also demonstrating breakdowns in reading comprehension at the short sentence level and significant deficits in written expression at the word level, compounded by impaired auditory comprehension preventing writing to dictation and impaired naming preventing written naming. These deficits impact the patient's ability to functionally comm unicate her wants, needs, and ideas and hold conversation. She presents with severe impairments in reading comprehension, however, she demonstrates some success with reading comprehension at the wordlevel, which appears to be a relative strength compared to her auditory comprehension. She exhibits significant breakdown in reading comprehension at the short sentence level. Ynes also demonstrates significant deficits in written expression at the single word level however this appears to be improving and her awareness of these errors appears better than her awareness of errors in verbal expression. She also demonstrates relative strength in copying words and sentences, as well as writing numbers. It has been determined that the patient demonstrates deficits that impact functioning in daily activities and hinder participation in life situations.??Patient currently requires assistance from others to communicate basic wants and needs and direct her medical care. Pt will continue to benefit from her needs being anticipated and simplified information presented to her. Information should be repeated and said in different ways, and augmented with pictures and gestures. The patient is demonstrating strengths in motivation and some intact basic expressive language skills which should be utilized during the patient's plan of care to maximize gains. Contextual factors that may impact the patient's ability to progress toward rehab goals include: severity of language impairment, need for physical assistance, tolerance level for therapy, and pain. Based on patient's tolerance level, it is recommended that patient participate in 30 minute BID sessions initially and build toward 60 minute sessions as tolerated. Given patient's age, independence prior to admission, and social/occupational demands, she would benefit from intensive ANESTHESIOLOGY PHYSICIAN ASSISTANT intervention. Based on the patient's rehab potential, motivation, prior level of function, and the contextual factors, the patient's prognosis is considered good. It is anticip ated that the patient will make functional gains in expressive and receptive language skills with intensive skilled 1:1 speech language pathology services in the inpatient rehabilitation setting. Functional Communication Measures ([place] [employer], 2002). The Functional Communication Measures (FCM???s) are a series of 7 point rating scales, ranging fromleast functional (Level 1) to most functional (Level 7). They have been developed by [employer] to describe different aspects of patient???s functional communication and swallowing abilities over the course of ANESTHESIOLOGY PHYSICIAN ASSISTANT intervention. ?? Spoken Language Comprehension Level 2: With consistent, maximal cues, the individual is able to follow simple directions, respond to simple yes/no questions in context, and respond to simple words orphrases related to personal needs. Spoken Language Expression Level 3: The communication partner must assume responsibility for structuring the communication exchange, and with consistent and moderate cueing, the individual can produce words and phrases that are appropriate and meaningful in context. Reading Level 3: The individual reads single letters and common words, and with consistent moderatecueing, can read some words that are less familiar, longer, and more complex. Writing Level 2: The individual writes single letters and common words with consistent maximal cueing. ?? GOALS: Snf Goals: Projected Functional Communication Measures at discharge: Spoken Language Comprehension Level 4: Individual consistently responds accurately to simple yes/noquestions and occasionally follows simple directions without cues. Moderate contextual support is usually needed to understand complex sentences/messages. The individual is able to understand limited conversations about routine daily activities with familiar communication partners. Spoken Language Expression Level 4: The individual is successfully able to initiate communication using spoken language in simple, structured conversations in routine daily activities with familiar communication partners. The individual usually requires moderate cueing, but is able to demonstrate use of simple sentences (i.e., semantics, syntax, and morphology) and rarely uses complex sentences/messages. Reading Level 4: The individual reads words and phrases related to routine daily activities, and words that are less familiar, longer, and more complex. The individual usually requires moderate cueing to read sentences of approximately 5-7 words. Writing Level 3: The individual writes single letters and common words, and with consistent moderate cueing, can write some words that are less familiar, longer, and more complex. Short Term Goals: Auditory Comprehension: Goal #1: Patient will identify objects in a visual field of 4-6 with >80% accuracy provided minimal cues from the clinician and repetitions for fewer than 50% of trials. Goal #2: Patient will answer simple yes/no questions immediately after review with >70% accuracyprovided moderate cues for attention and initiation. Goal #3: Patient will follow simple 1-step commands related to functional environment with >70% accuracy provided moderate verbal/tactile/visual cues in order to increase functional integration into environment. ?? Expressive Language: Goal #1: Patient will recite automatic speech tasks given moderate cues with >70% accuracy. Goal #2: Patient will name objects (real or pictured) to confrontation with >50% accuracy provided maximum verbal cues. Goal #3: Patient will repeat 1-2 syllable functional words with >70% accuracy provided a visual model by the clinician. ?? Reading Comprehension: Goal #1: The patient will identify the written word in a field of 2, given an auditory model with 80% accuracy. Goal #2: The patient will identify the written word to match a given object or picture with 80% accuracy in a field of 3 (presented in a vertical orientation). Written Expression: Goal #1: The patient will write functional words and short phrases related to personal information (e.g., name, address, date of ) with 90% accuracy given mod verbal/visual cues. ?? Plan RECOMMENDATIONS: Patient will continue to benefit for further ANESTHESIOLOGY PHYSICIAN ASSISTANT intervention in this setting to address aphasia management and intervention needs. ?? Recommend inpatient rehabilitation ANESTHESIOLOGY PHYSICIAN ASSISTANT services: Patient will be seen for a minimum of 5x/week @ 30minutes BID due to current tolerance level. ?? Communication Access and Shared Decision Making Recommendations Please support communication access and shared decision making ability by doing the following: ?? Support Comprehension: ?? Have a pen and paper ready when communicating. ?? Please present information slowly and simplify. Augment with drawings, diagrams, gestures and pointing. ?? Ask one question at a time. ?? Have only one person speak at a time. ?? Environmental modifications:? Simplify the environment: ?? Carryover/Discharge??and Healthcare Decision making considerations ?? Will need family support for the successful carryover of discharge recommendations. ?? Currently comprehension of non-contextual information is a barrier Oliva Martinez MS CCC-ANESTHESIOLOGY PHYSICIAN ASSISTANT 03/16/2020 14:24 * Isamar Angel - 03/15/2020 6986 EDT ED notes Petition for emergency guardianship started. (Mailed out on 03/17) Will continue to work with pt's sister Hola for completion. Isamar Downs RN CM * Jaden Rutherford MD - 03/15/2020 1130 EDT Physiatry Progress Note Admit Date: 03/02/2020 Hospital Day: LOS: 13 days Date of Service: 03/15/2020 Chief Complaint: Left temporoparietal hemorrhage status post decompressive craniectomy, setting of central venous thrombosis 02/14/2020 Subjective: Remains with expressive and receptive language deficits limiting history. No further leaking from her gastrostomy tube after taping over the leak, just outside the bumper, yesterday. No headache this morning. Current Facility-Administered Medications: acetaminophen (TYLENOL) tablet 650 mg oral Q4H PRN aspirin chewable tablet 81 mg oral DAILY bisacodyL (DULCOLAX) suppository 10 mg rectal Q48H PRN calcium carbonate (TUMS) 200 mg calcium (500 mg) per chewable tablet tablet,chewable 1 Tab oral QIDPRN docusate (COLACE) liquid 100 mg oral BID PRN enoxaparin (LOVENOX) injection 80 mg subcutaneous Q12H guaiFENesin tablet 200 mg oral Q6H PRN HYDROmorphone (DILAUDID) tablet 2-4 mg oral Q4H PRN lisinopriL (PRINIVIL) tablet 20 mg oral DAILY melatonin tablet 3 mg oral QHS metoprolol (LOPRESSOR) tablet 25 mg oral BID multivitamin (FLINTSTONES) chewable tablet 1 Tab oral DAILY nicotine (NICODERM CQ) 7 mg/24 hr patch 1 Patch transdermal Q24H ondansetron (ZOFRAN-ODT) disintegrating tablet 4 mg oral Q4H PRN pantoprazole (PROTONIX) tablet 40 mg oral DAILY papain-alpha amylase-cellulase (CLOG ZAPPER) 2-5 mL feeding tube PRN QUEtiapine (SEROQUEL) tablet 25 mg oral QHS senna (SENOKOT) tablet 1 Tab oral BID PRN Objective/Physical Exam: VS: Patient Vitals for the past 8 hrs: BP Pulse Resp Temp 03/15/20 1002 98/78 90 -- -- 03/15/20 0930 106/78 88 -- -- 03/15/20 0642 102/64 88 16 35.9 ??C (96.6 ??F) Pain: Patient Vitals for the past 8 hrs: Numeric Pain Level (Scale 1-10) Asleep 03/15/20 0829 0 -- 03/15/20 0356 0 Reassessed, sleeping comfortably, RR WNL. Weight: Weight : 83.7 kg (184 lb 7.9 oz) Glucose Readings (last 8 readings): No results for input(s): GLUCOSEFINGE in the last 72 hours. I&O: Intake/Output Summary (Last 24 hours) at 03/15/2020 1130 Last data filed at 03/15/2020 0844 Gross per 24 hour Intake 270 ml Output -- Net 270 ml Exam: Gen: Alert, pleasant, no distress HEENT: Left decompressive hemicraniectomy site slightly sunken.. No clear visual field cut. No facial droop. Pharynx is clear. Neck supple. Mucosal membranes are moist Skin: no rashes Cardiac: Cor RRR Pulmonary: clear to auscultation bilaterally Abdomen: normal bowel sounds, soft, nontender to palpation, PEG tube has a small split in it just above the bumper, which I applied with tape over with no further evidence of leaking. Musculoskeletal: no joint tenderness, deformity or swelling, no muscular tenderness noted, full range of motion without pain Neuro: Expressive greater than receptive aphasia affect: Alert motor: Strength no clear focal weakness, although there may be some relative right lower extremity weakness. Tone normal Reflexes: trace Sensation: No extinction no clear focal sensory loss Cerebellar: no tremors Labs: I have personally reviewed CBC: Lab Results Component Value Date WBC 6.43 03/02/2020 RBC 4.10 03/02/2020 HGB 13.2 03/02/2020 HCT 39.6 03/02/2020 MCV 97 03/02/2020 MCH 32.2 03/02/2020 MCHC 33.3 03/02/2020 PLT 462 (H) 03/02/2020 NEUTROABS 5.03 02/14/2020 BMP: Lab Results Component Value Date NA 134 (L) 03/07/2020 K 5.1 (H) 03/07/2020 CL 102 03/07/2020 CO2 24 03/07/2020 BUN 26 03/07/2020 CREATININE 0.57 03/07/2020 CALCIUM 8.8 02/14/2020 MG 1.7 03/02/2020 PHOS 4.6 (H) 03/07/2020 LABALBU 3.9 05/07/2001 Assessment/Problems: (update problem list daily as appropriate) Patient Active Problem List Diagnosis Date Noted ??? *(H)Left-sided nontraumatic intracerebral hemorrhage ([facility]) 03/02/2020 Priority: Medium Status post decompressive hemicraniectomy ??? Brain herniation ([facility]) 02/17/2020 Priority: Medium ??? Cerebral edema ([facility]) 02/17/2020 Priority: Medium ??? 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 (H)Cerebral venous thrombosis 02/14/2020 Priority: Medium ??? Encounter for insertion or removal of intrauterine contraceptive device 02/12/2020 Priority: Medium ??? Nicotine dependence, unspecified, uncomplicated 02/12/2020 Priority: Medium ??? Perimenopausal 02/12/2020 Priority: Medium ??? Post concussion syndrome 02/12/2020 Priority: Medium ??? Tobacco abuse 12/02/2012 Priority: Medium ??? Chronic low back pain 10/13/2012 Priority: Medium ??? Back pain 09/25/2012 Priority: Medium Plan: 1. Left frontal intraparenchymal hemorrhage: Status post decompressive craniectomy. Patient with residual mild right-sided weakness, significant expressive and receptive aphasia, dysphagia. Full PT, OT, ANESTHESIOLOGY PHYSICIAN ASSISTANT to address mobility, self care communication and swallowing function. 24 hour rehab nursing for self care deficits. Helmet on when out of bed. Diet advanced to regular consistency. 2. 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 Evidence of left IJ, sigmoid and transverse sinuses as well. Now on therapeutic dose Lovenox. Low molecular weight heparin level obtained and was subtherapeutic with Lovenox adjusted to 80 mg every 12 hours. Level is therapeutic. I havecontacted hematology was working on setting up follow-up in [facility] clinic 3. Right upper lobe pulmonary embolism, left upper extremity DVT: Now on therapeutic dose Lovenox. ?? 4. History of anxiety/depression: Monitor clinically. Currently on Seroquel at at bedtime. Considermedical psychology consultation as language deficits allow. She has listed allergies to citalopram and duloxetine. 5. Nutrition: PEG tube placed 02/18/2020. Goal is to keep the tube in place for at least 6 weeks after placement, as reviewed with Dr. Branch from acute care surgery. Diet is currently regular consistency Jaden Rutherford MD 03/15/2020 11:30 * Benniegabrielemayda Rohit, PT - 03/15/2020 0935 EDT [facility] Physical Therapy Encounter Note Date of Service: 03/15/2020 , Activity: Level of risk of Harm B, Activity as tolerated, , Additional Precautions Information: LBone flap precautions (helmet OOB), R Rooke Boot in bed, PEG tube SUBJECTIVE: Through aphasic speech patient reported that it has been a better day. OBJECTIVE: Start time: 929 Total Therapy Minutes: 30 minute(s) Interventions completed today: Vital Signs: Patient Vitals for the past 1 hrs: BP Pulse 03/15/20 1002 98/78 90 03/15/20 0930 106/78 88 ] Therapeutic exercise: ?? Ambulation with a device, up/down 4 6 steps x4 (bilateral rails. Total ambulation distance 350'. Focus on endurance and strengthening. Min contact A. Slight reduction in right weight shift and stance time. ?? Independent path finding to from the gym. Neuromuscular re-education: ?? Obstacle course: stepping over 9 hurdles, around cones, alternate toe tapping to 9 cones. Min Contact A ?? Side stepping over 9 hurdles ?? Backward stepping over 9 hurdles. ?? Min contact A 90% of the time. Mild instability with fatigue requiring min A to balance recovery. 2nd Session Time: Start time: 1505 Total Therapy Minutes: 30 minutes Interventions completed today: Therapeutic exercise: ?? Ambulation without a device with the focus on endurance: 650' with min contact A. Patient scanning left and right identifying pictures on the wall. Exercise Repetitions/sets Comment Sit to stand 10x3 From stationary 20 mat Standing hip abduction 10x2 Holding onto a chair. Reported fatigue Standing hip flexion 10x2 Holding onto a chair. Reported fatigue Rest Side stepping 15'x1 Min contact A High stepping 15'x1 Min contact A. Mild instability with self-recovery Patient/Family Education: Not applicable Team Communication: ?? Sol Gentile, OT: questions visual deficits. ASSESSMENT: Ynes presented with improved balance and tolerance to ambulation without a device compared to yesterday. She continues to require min contact to min A for mobility. PLAN: ?? Gait without a device for endurance and strength ?? Stairs for endurance and leg strength ?? Obstacle negotiation, toe taps, single-limb stance variations for balance ?? Closed chain exercises for leg strength. Contact information: Pager: [phone] Rohit Sterling PT, DPT 03/15/2020 9:48 * Ying Guevara, ERIKA - 03/15/2020 0819 EDT Speech-Language Pathology Daily and Current Progress Note ANESTHESIOLOGY PHYSICIAN ASSISTANT Diagnosis: Aphasia Medical Diagnosis: Cerebral venous thrombosis and resultant intraparenchymal hemorrhage in the leftfrontotemporal area Date of Onset: 02/14/20 Date of Referral: 03/02/20 Subjective/Objective SUBJECTIVE: 1st session: Today is better than yesterday. 2nd session: Wow, that's interesting. Then I could do it but when I (jargon) the (jargon) it doesn't work. OBJECTIVE: Date of Service: 03/15/2020 First Session: Start Time: 1030 Total Therapy minutes: 30 minute(s) comm-cog tx Second Session: Start Time: 1400 Total Therapy minutes: 30 minute(s): comm-cog tx Current Treatment Objectives: Auditory Comprehension: Goal #1: Patient will identify objects in a visual field of 4-6 with >80% accuracy provided minimal cues from the clinician and repetitions for fewer than 50% of trials. 03/11: Session 2- Patient identifies objects in a visual field of 4 with 100% accuracy provided written word and auditory presentation of the word. Patient identifies objects in a visual field of 6 with 80% accuracy provided written word and auditory presentation of the word. Patient requires significant repetition of each item provided field of 6 and encouragement as she was hesitant to answer frequently stating that it made her nervous to have more than 4 items to choose from. 03/12: Session 2- Patient identifies objects in a visual field of 4 with 80% accuracy provided written word and auditory presentation of the word. 03/14: Session 1- Patient identifies objects in a visual field of 4 with 70% accuracy provided written word and auditory presentation of the word. 03/15: 2nd session: Object ID (f of 4) given label and function: 88% accuracy 1. 15 6. 15 2. 15 7. 8 3. 15 8. 13 4. 15 9. / 5. 15 10. / Object ID (f of 4) given label ONLY: 50% accuracy 1. 13 6. 6 2. 15 7. 6 3. 6 8. 6 4. 13 9. 15 5. 13 10. 6 Goal #2: Patient will answer simple yes/no questions immediately after review with >70% accuracyprovided moderate cues for attention and initiation. 03/07: Session 1: Patient responded to Y/N questions with jargon and some intelligible word related to questions (e.g., It was my father's name in response to Is your last name 'Cindy?'). 03/08: Session 1- Patient responds to simple Y/N questions with 30% accuracy. Errorless learning wasattempted with mixed success. 1. 6- Error: Inaccurate attempt at the task item 2. 6- Error: Inaccurate attempt at the task item 3. 6- Error: Inaccurate attempt at the task item 4. 9- Repeated: Accurate, after instructions are repeated (errorless learning utilized) 5. 6- Error: Inaccurate attempt at the task item (errorless learning attempted) 6. 9- Repeated: Accurate, after instructions are repeated (errorless learning utilized) 7. 6- Error: Inaccurate attempt at the task item (errorless learning attempted) 8. 6- Error: Inaccurate attempt at the task item (errorless learning attempted) 9. 9- Repeated: Accurate, after instructions are repeated (errorless learning utilized) 10. 6- Error: Inaccurate attempt at the task item 03/09: Session 1- Patient responds to simple Y/N questions with 60% accuracy. Today patient benefitsfrom written yes/no board and gestures for prompting. 1. 6- Error: Inaccurate attempt at the task item; 9- repeated 2. 9- Repeated: Accurate, after instructions are repeated 3. 15- Complete: accurate, responsive, complete, prompt, efficient 4. 6- Error: Inaccurate attempt at the task item 5. 13- Complete-delayed: Accurate, responsive, complete or complex, delayed 6. 15- Complete: accurate, responsive, complete, prompt, efficient 7. 13- Complete-delayed: Accurate, responsive, complete or complex, delayed 8. 13- Complete-delayed: Accurate, responsive, complete or complex, delayed 9. 13- Complete-delayed: Accurate, responsive, complete or complex, delayed 10. 6- Error: Inaccurate attempt at the task item 03/10: Session 1- Patient responds to simple Y/N questions with 20% accuracy. Today patient benefitsfrom written yes/no board and gestures for prompting. 1. 6- Error: Inaccurate attempt at the task item 2. 6- Error: Inaccurate attempt at the task item 3. 8- Cued: Accurate, after cue is given 4. 15- Complete: accurate, responsive, complete, prompt, efficient 5. 6- Error: Inaccurate attempt at the task item 6. 6- Error: Inaccurate attempt at the task item 7. 6- Error: Inaccurate attempt at the task item 8. 15- Complete: accurate, responsive, complete, prompt, efficient 9. 6- Error: Inaccurate attempt at the task item 10. 6- Error: Inaccurate attempt at the task item 4/17: Session 1- Patient responds to simple Y/N questions with 50% accuracy. Today patient benefitsfrom written yes/no board and gestures for prompting. 1. 9- Repeated: Accurate, after instructions are repeated 2. 15- Complete: accurate, responsive, complete, prompt, efficient 3. 15- Complete: accurate, responsive, complete, prompt, efficient 4. 6- Error: Inaccurate attempt at the task item 5. 8- Cued: Accurate, after cue is given 6. 6- Error: Inaccurate attempt at the task item 7. 6- Error: Inaccurate attempt at the task item 8. 15- Complete: accurate, responsive, complete, prompt, efficient 9. 6- Error: Inaccurate attempt at the task item 10. 15- Complete: accurate, responsive, complete, prompt, efficient 03/12: Session 2- Patient responds to simple Y/N questions with 60% accuracy with credit given for answers that were correct following a delay or repetition of the stimulus. Today patient benefits from written yes/no board and gestures for prompting. 1. 13- Complete-delayed: Accurate, responsive, complete or complex, delayed 2. 6- Error: Inaccurate attempt at the task item 3. 9- Repeated: Accurate, after instructions are repeated 4. 15- Complete: accurate, responsive, complete, prompt, efficient 5. 13- Complete-delayed: Accurate, responsive, complete or complex, delayed 6. 6- Error: Inaccurate attempt at the task item 7. 6- Error: Inaccurate attempt at the task item 8. 15- Complete: accurate, responsive, complete, prompt, efficient 9. 6- Error: Inaccurate attempt at the task item 10. 15- Complete: accurate, responsive, complete, prompt, efficient 03/14: Session 2- Patient responds to simple Y/N questions with 60% accuracy with credit given for answers that were correct following a delay or repetition of the stimulus. Today patient benefits from written yes/no board and gestures for prompting. 1. 6- Error: Inaccurate attempt at the task item 2. 15- Complete: accurate, responsive, complete, prompt, efficient 3. 6- Error: Inaccurate attempt at the task item 4. 13- Complete-delayed: Accurate, responsive, complete or complex, delayed 5. 2- Attention: No response, but patient attends to the guido 6. 13- Complete-delayed: Accurate, responsive, complete or complex, delayed 7. 15- Complete: accurate, responsive, complete, prompt, efficient 8. 10- Corrected: Accurate, self-corrected 9. 15- Complete: accurate, responsive, complete, prompt, efficient 10. 15- Complete: accurate, responsive, complete, prompt, efficient Goal #3: Patient will follow simple 1-step commands related to functional environment with >70% accuracy provided moderate verbal/tactile/visual cues in order to increase functional integration into environment. 4: Session 2- Patient follows simple 1-step commands related to environment with 0% accuracy independently. Accuracy increases to 90% accuracy following a model by the clinician with slowed auditory presentation of directions. 03/10: Session 1- Patient follows simple 1-step commands related to environment with 0% accuracy independently. Accuracy increases to 90% accuracy following a model by the clinician with slowed auditory presentation of directions. 03/12: Session 1- Patient follows simple 1-step commands related to environment with 0% accuracy independently. Accuracy increases to 62% accuracy following a model by the clinician with slowed auditory presentation of directions. 03/14: Session 2- Patient follows simple 1-step commands related to environment with 100% accuracy following a model by the clinician with slowed auditory presentation of directions. 03/15: / session: Patient followed 1 step commands in the context of therapy tasks today giveninitial demonstration. Expressive Language: Goal #1: Patient will recite automatic speech tasks given moderate cues with >70% accuracy. 03/08: Session 1- Patient recites automatic speech tasks with the clinician. See results below: 1-10: 100% accuracy following a model The Alphabet: Unable to perform in unison Months of the Years: Attempted to have patient repeat each month after the clinician: November, December, (jargon), (jargon), , June, April medication, June compation, sincation medication,seegus, French, lessonagus Musa, Decemegas 03/09: Session 1- Patient recites automatic speech tasks with the clinician. See results below: 1-10: 100% accuracy following a starter cue one... The Alphabet: T1: A, me, S, d, 8, q, A, me, d, ec, q, g, h, eed, h ; T2: Patient was able to achieve 50% in unison with the clinician but eventually perseverated on w Days of the Week: Patient perseverated on w, k despite max cues, models, and attempts to perform in unison Session 2- Patient recites automatic speech tasks with the clinician. See results below: 1-10: 80% accuracy following a repetition of the instructions; 80% accuracy in trial 2 following a repetition of the instructions. The Alphabet: A, 7 you mean? following max cues and models Days of the Week: Patient perseverated on w, k despite max cues, models, and attempts to perform in unison 03/10: Session 1- Patient recites automatic speech tasks with the clinician. See results below: 1-10: 100% accuracy The Alphabet: a, q, q, jews, each, l, l, elf Days of the Week: w, q, w, q, w, q, l, q, l, q 03/12: Session 2- Patient recites automatic speech tasks with the clinician. See results below: 1-10: 90% accuracy The Alphabet: l, n, h, stomich, a, m, h, m, etch, is it etch? Days of the Week: elmen, elmen threemen, riley three hundred, h, h, eight? No, stomach 03/14: Session 2- Patient recites automatic speech tasks with the clinician. See results below: 1-10: 90% accuracy Days of the Week: feminal, lessons, lezimen... Goal #2: Patient will name objects (real or pictured) to confrontation with >70% accuracy provided moderate verbal cues. 03/08: Session 1- Patient names real pictured objects to confrontation in 4 out of 29 trials provided errorless learning and maximum cues from the clinician. 03/09: Session 2- Patient names real pictured objects to confrontation with 10% accuracy today. 03/10: Session 1- Patient names real pictured objects to confrontation with 0% accuracy. that's a nice pretty outfit (house) argenips... Something you eat. (grapes) Lissessis... Communities (shoes) subins (wrestle) sunspickum (vacuum) stomach (tongue) maskick... Stomach (moreno) Jurgenarsesis (brain) she's here (nurse) stomach (popcorn) Session 2- Patient names real pictured objects to confrontation with 0% accuracy. stomach (watch) sillicus (eye) lillicarpus (zipper) firekin (shark) jargon (shirt) jargon (spoon) stugish sodagis (shoes) stymish (chair) david (cow) jargon (baby) mamus (barn) stomach (bat) stomach talks (lips) 03/11: Session 1- Patient names real pictured objects to confrontation with 0% accuracy. Target Response 1. socks Stomach remus 2. chair Stomach 3. finger Stomach mesar mesizen 4. baby Stomach lady 5. helmet stomach 6. Earth liden stomach minizes 7. mandaen Stomach I'm really confused with that 8. pepper [employer] 9. shorts Stomach misters 10. sink Magic stomach medicine, damn I know what this one is 03/11: Session 1- Patient names real pictured objects to confrontation with 0% accuracy. Target Response 1. teeth Stomach frun frun 2. golf He's about to hawk the golnick. 3. crown Sagic, stomach, stomach 4. rice Looks like sasage, nice 5. money sinines 6. horse Soap foeis 7. doctor Be destroyance 8. legs Toenicks, stomach, stimach, neglegs 9. wallet Stomach, stomach 10. pizza Snack, stomach, snomach, sanwick 03/14: Session 1- Patient names real pictured objects to confrontation with 0% accuracy. Target Response 1. playground somiser 2. onion solick 3. chair solick medicine 4. zipper I know it but I can't remember 5. chest stilmer 6. boxing I don't know 7. soldier sleeping medication 8. saw stomach 9. kitchen liquor 10. corn Touching stomach Probe: naming an object from a fo2 multiple choice- 20% accuracy (patient struggling with repeatingthe words, producing neologisms or paraphasias) 03/15: 2nd session: Repeating name of pictured object (in spontaneous context) in the context of a written expression task: ~50% accuracy (with partial credit for spelling a word out loud accurately!) 1. 6 2. 6 3. 15 4. 15 5. 8* * spelled the word out loud correctly! Goal #3: Patient will repeat 1-2 syllable functional words with >70% accuracy provided a visual model by the clinician. 03/09: Session 2- Patient repeats 1-2 syllable functional words with 10% accuracy provided a visual model by the clinician. For 60% of trials patient produced neologisms and for 30% of trials patient produced phonemic paraphasias. See results below: 2. 6- Error: Inaccurate attempt at the task item; neologism 3. 6- Error: Inaccurate attempt at the task item; neologism 4. 15- Complete: accurate, responsive, complete, prompt, efficient 5. 14- Distorted: accurate, responsive, complete or complex, prompt, distorted; phonemic paraphasia 6. 6- Error: Inaccurate attempt at the task item; neologism 7. 6- Error: Inaccurate attempt at the task item; neologism 8. 14- Distorted: accurate, responsive, complete or complex, prompt, distorted; phonemic paraphasia 9. 14- Distorted: accurate, responsive, complete or complex, prompt, distorted; phonemic paraphasia 10. 6- Error: Inaccurate attempt at the task item; neologism 03/10: Session 1- Patient repeats 1-2 syllable functional words with 30% accuracy provided a visual model by the clinician. For 70% of trials patient produced neologisms. See results below: 1. 8- Cued: Accurate, after cue is given; neologism for first few trials; required tactile and visual cues 2. 15- Complete: accurate, responsive, complete, prompt, efficient 3. 6- Error: Inaccurate attempt at the task item; neologism 4. 6- Error: Inaccurate attempt at the task item; neologism 5. 15- Complete: accurate, responsive, complete, prompt, efficient 6. 15- Complete: accurate, responsive, complete, prompt, efficient 7. 6- Error: Inaccurate attempt at the task item; neologism 8. 6- Error: Inaccurate attempt at the task item; neologism 9. 6- Error: Inaccurate attempt at the task item; neologism 10. 6- Error: Inaccurate attempt at the task item; neologism Session 2- Patient repeats 1-2 syllable functional words with 30% accuracy provided a visual model by the clinician. For 70% of trials patient produced neologisms. 03/11: Session 1- Patient repeats 1-2 syllable functional words with 0% accuracy provided a visual model by the clinician. See results below: Target Response 1. socks stomach 2. chair Stomach mesausen 3. finger megas megasarus 4. baby Lady mesasus 5. helmet helmamarier 6. Earth siroath 7. mandaen churchtons 8. pepper lymins 9. shorts short hundreds 10. sink [place]; sank; sank 03/12: Session 1- Patient repeats 1-2 syllable functional words with 50% accuracy provided a visual model by the clinician. See results below: Target Response Error Type 1. teeth clun neologism 2. golf nogolsh neologism 3. crown clanin neologism 4. rice rice - 5. money money - 6. horse horse - 7. doctor Stomach menesis Perseveration + neologism 8. legs Leg? that's it? leg - 9. wallet [place]ck Phonemic paraphasia 10. pizza pizza. I know that. - 03/14: Session 1- Patient repeats 1-2 syllable functional words with 30% accuracy provided a visual model by the clinician. Errors were typically phonemic paraphasias with the occasional neologism. See results below: Target Response Error Type 1. onion umion Phonemic paraphasia 2. chair air Phonemic paraphasia 3. zipper zipper - 4. chest shate neologism 5. boxing dockwis neologism 6. soldier soulmir Phonemic paraphasia 7. saw sawmich Neologism + perseveration 8. kitchen kitchen - 9. corn corn - 10. vacuum vactum Phonemic paraphasia Session 2- Patient repeats 1-2 syllable functional words with 10% accuracy provided a visual model by the clinician. Errors were typically phonemic paraphasias with the occasional neologism. See results below: Target Response Error Type 1. hat s- um, hat - 2. salad holad Phonemic paraphasia 3. chair Stomach attic Neologism + perseveration 4. bird Stomach umanick Neologism + perseveration 5. money kathya attic Phonemic paraphasia + neologism 6. hand hammock Phonemic paraphasia 7. rice dammish neologism 8. pool amicus neologism 9. glasses dimanick neologism 10. watch gamican neologism Probe: Repeating functional phrases Target Response 1. Hi. Hi. 2. How are you? How are yule? 3. My name is Ynes. My name spill it. 4. I need help. I need united something. 5. I'm hungry. [facility] medical under. 03/15: 1st session: Repeating of single words in the context of reading comprehension task today: 01/06, 17% accuracy, patient demonstrated poor awareness of her errors. Cloze cues were successful at eliciting target word on two instances, however this is not consistently successful Reading Comprehension: Goal #1: The patient will identify the written word in a field of 2, given an auditory model with 80% accuracy. 03/11: Session 2- Patient identifies written words in a field of 2, given an auditory model with 81%accuracy. 03/12: Session 2- Patient identifies written words in a field of 2, given an auditory model with 50%accuracy. Goal #2: The patient will identify the written word to match a given object or picture with 80% accuracy in a field of 3 (presented in a vertical orientation). 03/12: Session 1- Patient identifies the written word from a field of 3, given a picture of an object, with 53% accuracy. 03/14: Session 2- Attempted but could not complete d/t patient complaining of not being able to see stimuli d/t them being blurry. 03/15: 1st session: Patient was given a pictured object/item and then presented with three words, written by clinician in a vertical presentation and held upright for her viewing. She then used the picture to 'underline' the matching written word. She independently manipulated the picture to aid hervision. Word to picture match (f of 2 words), presented vertically: 100% accuracy 1. 13 6. 13 2. 15 7. / 3. 13 8. / 4. 15 9. / 5. 13 10. / Word to picture match (f of 3 words), presented vertically: 83% accuracy 1. 6 6. 15 2. 13 7. / 3. 15 8. / 4. 13 9. / 5. 15 10. / Written Expression: Goal #1: The patient will write functional words and short phrases related to personal information (e.g., name, address, date of ) with 90% accuracy given mod verbal/visual cues. 03/09: Session 2- Patient writes functional words and short phrases related to personal information.See results below: Name: 100% accuracy Address: Patient does not provide street number, street name, or apartment number. She did write inapartment number once clinician wrote in the street number and street name. She got 100% accuracy for city and state. Phone Number: 100% accuracy Occupation: Unable to complete. 03/12: Session 1- Patient writes functional words and short phrases related to personal information.See results below: Name: 100% accuracy Address: 100% accuracy following a self-correction Phone Number: 100% accuracy Occupation: 100% accuracy following request for clarification and mod cues from the clinician 03/15: session: Patient copied her first and last name accurately and independently. Probe: Patient presented with a pictured object/item and provided it's label verbally. She was asked to write the name of the object/item. Initial perseveration on the letter of her first name, however she recognized this error and accurately self corrected to write the first 2 letters of the word 'dog' (accurate for picture). Given two written foils of the accurate spelling, she quickly and accurately identified the correct spelling (and did so with 100% accuracy subsequently). Trials were continued: 1. 12/MC 2. 12/MC 3. 8/MC 4. 15* 5. 12 given initial letter 12 = partially correct spelling which most often included initial 2 letters of the word being written accurately MC = successful identification of the spelling given multiple choice *spelled aloud accurately, otherwise spelling aloud characterized by jargon letters PATIENT/FAMILY EDUCATION: Patient/Family Education: Patient/family education was provided today including: rehab goals and questions were addressed. Topic: Patient/Family education and training was completed today including: the role of Speech-Language Pathology aphasia questions were addressed Learner: patient Method of Education: Verbal Barriers to Learning/Education: fatigue, headache pain, and presence of language impairment Patient: needs further instruction and education Family: No family present. Patient/Family Goals: Patient states I want to get better. Team Communication: Conversation with patient's OT who is suspecting a right homonymous hemianopsia ?? Assessment /CLINICAL IMPRESSIONS: Ynes White is a female 50 y.o. 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 Ynes demonstrated good engagement and perseverance during therapy tasks today. Ynes demonstrated improved ability to identify a pictured object/item given both the label and function today. She also demonstrated improved ability to accuratelyspell in writing either the beginning of ending of a 4 letter word to label a picture today and this task also appeared facilitative of verbal repetition and labeling of the pictured. She consistently identified the accurate complete spelling in a field of 2 foils and also demonstrated consistent awareness of errors in her attempts. Her awareness of her errors in writing appears to be a relative strength compared to her awareness of errors in her verbal expression. Goals have been added to address this skill. Ynes remains appropriate for 30 min BID sessions for aphasia intervention based on her level of fatigue and headache pain. Ynes White also currently presents with severe expressive and receptive aphasia, most consistent with Wernicke's type but with some deviation from typical Wernicke's type presentation. Patient appears to be able to follow some basic 1-step commands effectively provided context, models, slow auditory presentation of information, and tactile cues as needed. Repetition, object naming, word fluency, sentence completion, and responsive speech are all impaired. Ynes demonstrates a favorable response to use of gestures to assist with her auditory comprehension. Expressive language is characterized as fluent but mostly consists of word salad with many instances of jargon, neologisms, andparaphasias with occasional moments of intelligible discourse scattered throughout. Stefanies discourse could also be described as tangential and perseverative. She attempts to utilize gestures to augment her expressive language, but is not always successful. She is also demonstrating breakdowns in reading comprehension at the short sentence level and significant deficits in written expression atthe word level, compounded by impaired auditory comprehension preventing writing to dictation and impaired naming preventing written naming. These deficits impact the patient's ability to functionally communicate her wants, needs, and ideas and hold conversation. She presents with severe impairments in reading comprehension, however, she demonstrates some success with reading comprehension at theword level, which appears to be a relative strength compared to her auditory comprehension. She exhibits significant breakdown in reading comprehension at the short sentence level. Ynes also demonstrates significant deficits in written expression at the single word level however this appears to be improving and her awareness of these errors appears better than her awareness of errors in verbalexpression. She also demonstrates relative strength in copying words and sentences, as well as writing numbers. Based on evaluation to date, it has been determined that the patient demonstrates deficits that impact functioning in daily activities and hinder participation in life situations.??Patient currently requires assistance from others to communicate basic wants and needs and direct her medical care. Ptwilaurent continue to benefit from her needs being anticipated and simplified information presented to her. Information should be repeated and said in different ways, and augmented with pictures and gestures. The patient is demonstrating strengths in motivation and some intact basic expressive language skills which should be utilized during the patient's plan of care to maximize gains. Contextual factors that may impact the patient's ability to progress toward rehab goals include: severity of language impairment, need for physical assistance, tolerance level for therapy, and pain. Based on patient's tolerance level, it is recommended that patient participate in 30 minute BID sessions initially and build toward 60 minute sessions as tolerated. Given patient's age, independence prior to admission, and social/occupational demands, she would benefit from intensive ANESTHESIOLOGY PHYSICIAN ASSISTANT intervention. Based on the patient's rehab potential, motivation, prior level of function, and the contextual factors, the patient's prognosis is considered good. It is anticip ated that the patient will make functional gains in expressive and receptive language skills with intensive skilled 1:1 speech language pathology services in the inpatient rehabilitation setting. Functional Communication Measures ([place] [employer]- Language[employer], 2002). The Functional Communication Measures (FCM???s) are a series of 7 point rating scales, ranging fromleast functional (Level 1) to most functional (Level 7). They have been developed by [employer] to describe different aspects of patient???s functional communication and swallowing abilities over the course of ANESTHESIOLOGY PHYSICIAN ASSISTANT intervention. ?? Spoken Language Comprehension Level 2: With consistent, maximal cues, the individual is able to follow simple directions, respond to simple yes/no questions in context, and respond to simple words orphrases related to personal needs. Spoken Language Expression Level 3: The communication partner must assume responsibility for structuring the communication exchange, and with consistent and moderate cueing, the individual can produce words and phrases that are appropriate and meaningful in context. Reading Level 3: The individual reads single letters and common words, and with consistent moderatecueing, can read some words that are less familiar, longer, and more complex. Writing Level 2: The individual writes single letters and common words with consistent maximal cueing. ?? GOALS: Psychiatric Nurse Goals: Projected Functional Communication Measures at discharge: Spoken Language Comprehension Level 4: Individual consistently responds accurately to simple yes/noquestions and occasionally follows simple directions without cues. Moderate contextual support is usually needed to understand complex sentences/messages. The individual is able to understand limited conversations about routine daily activities with familiar communication partners. Spoken Language Expression Level 4: The individual is successfully able to initiate communication using spoken language in simple, structured conversations in routine daily activities with familiar communication partners. The individual usually requires moderate cueing, but is able to demonstrate use of simple sentences (i.e., semantics, syntax, and morphology) and rarely uses complex sentences/messages. Reading Level 4: The individual reads words and phrases related to routine daily activities, and words that are less familiar, longer, and more complex. The individual usually requires moderate cueing to read sentences of approximately 5-7 words. Writing Level 3: The individual writes single letters and common words, and with consistent moderate cueing, can write some words that are less familiar, longer, and more complex. Short Term Goals: Auditory Comprehension: Goal #1: Patient will identify objects in a visual field of 4-6 with >80% accuracy provided minimal cues from the clinician and repetitions for fewer than 50% of trials. Goal #2: Patient will answer simple yes/no questions immediately after review with >70% accuracyprovided moderate cues for attention and initiation. Goal #3: Patient will follow simple 1-step commands related to functional environment with >70% accuracy provided moderate verbal/tactile/visual cues in order to increase functional integration into environment. ?? Expressive Language: Goal #1: Patient will recite automatic speech tasks given moderate cues with >70% accuracy. Goal #2: Patient will name objects (real or pictured) to confrontation with >70% accuracy provided moderate verbal cues. -Downgrade: Patient will name objects (real or pictured) to confrontation with >50% accuracy provided maximum verbal cues. Goal #3: Patient will repeat 1-2 syllable functional words with >70% accuracy provided a visual model by the clinician. ?? Reading Comprehension: Goal #1: The patient will identify the written word in a field of 2, given an auditory model with 80% accuracy. Goal #2: The patient will identify the written word to match a given object or picture with 80% accuracy in a field of 3 (presented in a vertical orientation). Written Expression: Goal #1: The patient will write functional words and short phrases related to personal information (e.g., name, address, date of ) with 90% accuracy given mod verbal/visual cues. ?? Plan RECOMMENDATIONS: Patient will continue to benefit for further ANESTHESIOLOGY PHYSICIAN ASSISTANT intervention in this setting to address aphasia management and intervention needs. ?? Recommend inpatient rehabilitation ANESTHESIOLOGY PHYSICIAN ASSISTANT services: Patient will be seen for a minimum of 5x/week @ 30minutes BID due to current tolerance level. ?? Communication Access and Shared Decision Making Recommendations Please support communication access and shared decision making ability by doing the following: ?? Support Comprehension: ?? Have a pen and paper ready when communicating. ?? Please present information slowly and simplify. Augment with drawings, diagrams, gestures and pointing. ?? Ask one question at a time. ?? Have only one person speak at a time. ?? Environmental modifications:? Simplify the environment: ?? Carryover/Discharge??and Healthcare Decision making considerations ?? Will need family support for the successful carryover of discharge recommendations. ?? Currently comprehension of non-contextual information is a barrier ERIKA Moreira 03/15/2020 8:27 * Tam Gentile, OT - 03/15/2020 5481 EDT [facility] Rehabilitation Therapy Inpatient Rehabilitation [facility] Occupational Therapy Progress Note Date of Service:03/15/2020 Subjective/Objective Subjective Pt reports today is a good day, she gets tired easily but does not feel like she is bad like yesterday. She feels like her pain management was not great and this made her feel sick. She reports she was constipated and had an enema and it was very painful. Pt does indicate issues with her vision andis not sure what is going on. Objective SESSION 1 Interventions Completed Today: Start time: 1100 Treatment time: 9642-0212 Total Therapy Minutes: 30 minute(s) Intervention included: Neuromuscular Re-education 30 minutes Due to pt current reports in therapy that her vision is impaired, a full vision assessment was completed. Results were difficult to determine due to aphasia, but recorded above. Based on results, however, there appears to be visual field deficits, specifically on right visual harrell both eyes. Pt does also report difficulty with eye teaming, specifically with vergence tasks, unclear what she is seeing with these oculomotor challenges. SESSION 2 Interventions Completed Today: Start time: 5189-7013 Treatment time: [id number] Total Therapy Minutes: 30 minute(s) Intervention included: Therapeutic Activities 30 minutes Reassessed visual field functions with support of another OT for ongoing understanding of how this affects function. Does appear to have visual field deficits, thus completed the following ?? Led discussion with verbal and visual cues on eye positioning for safety with activities including mobility ?? Reviewed lighthouse scanning tasks for full visual field. Pt able to incorporate scanning pattern with some mobility to increase scanning of hallway. ?? completed BITs task with large and small dots for attention and scanning task to encourage ongoing scanning to the right visual field. Increased time to scan to right and locate target. Pt at times seemed surprised and felt like the target popped into her field of vision ?? Completed task in standing and ambulated without walker, and with minimal contact guard assist for safety Vital Signs: Vital signs have been stable with interventions and were not monitored. Patient/Family Education: Topic: Benefits of activity Compensatory strategies Role of OT Safety awareness Learner: patient Method: verbal and demonstration Barriers to Learning: cognitive deficits and language Outcome: verbalized understanding and returned demonstration Team Communication: With PT regarding care this date In this reporting period 03/03/2020 to 03/15/2020, the patient has been seen by Occupational Therapy. Interventions have included: Occupation Based Activity - Basic Activities of Daily Living, Occupation Based Activity - Instrumental Activities of Daily Living, Purposeful Activity, Preparatory Method - Exercise, Preparatory Method - Neuromuscular Education and Patient/Family Education Relevant Objective Findings: Body Functions and Performance Skills: Cardiovascular/Respiratory Systems Function: vital signs have been recorded by nursing and stable with interventions. Mental Functions: Arousal/Alertness: Alert Best Verbal: verbal. Spontaneous verbalization -pt attempting to verbalize and communicate more, does have expressive and receptive aphasia affecting her communication skills. Orientation Level: Oriented to person, place and some of medical situation however difficult to fully determine due to aphasia. Not able to identify date even with options. Insight: Improving, pt able to ring for help, and able to kathleen helmet with mobility. Sitter discontinued, but bed alarm still on. The [place] Making Test (TMT) consists of two parts. TMT-A requires an individual to draw lines sequentially connecting 25 encircled numbers distributed on a sheet of paper. Task requirements are similar for TMT-B except the person must alternate between numbers and letters (e.g., 1,A,2,A,3,C,etc.). The score on each part represents the amount of time required to complete the task. The cognitive alternation required by Part B reflects executive functioning, although other cognitive ability , such as psychomotor speed and visual scanning, are also required for the successful completion of the test (Lory, Candelario, &Marcos, 2004). Age 45-54 Time (seconds) Mean (S.D) [place]woods A 98 31.78 (9.93) [place] B unable 63.76 (14.42) Medical Association. Sensory Functions: Hearing: grossly intact. Ynes White is unable to indicate when her last eye doctor visit was. Vision history None Corrective lenses: Glasses; reading distance Eye alignment: intact Head position: central Acuity Unable to formally assess due to aphasia Eye Alignment: The Alternate Cover test was completed to assess eye Ynes's eye alignment and teaming. Ynes presents with good results indicating intact alignment. (cover 1 eye for 2 seconds and quickly move to other eye, observe eye as it is uncovered. Any movement = + results and difficulty maintaining eyealignment.) Ocular-motor skills Ocular range of motion is impaired but difficult to assess due to ahpasi. Pursuits are impaired, difficulty with smooth pursuits. Saccadic (rapid) eye movements are impiared. Vergence The patient's point of near convergence was assessed as part of a visual skills assessment. The near point of convergence in an adult is approximately 2-4 inches from the bridge of the nose and should be achieved without a break in fixation and with minimum effort. ?? The patient's point of convergence was 6-8 inches today, as indicated by a complaint of double vision. (Ruma, 2011 Visual Harrell: Assessed with confrontation testing, one eye at a time, using a pen light. impaired appears to have decreased harrell for both eyes in right field ?? Neuromusculoskeletal and Movement Related Functions: Range of motion: Pt has full active range of motion throughout bilateral upper extremities Strength: Pt has grossly 4-5/5 strength throughout bilateral upper extremiities ?? Skin and Related Structure Functions: Head wound: Ghassan Abdomin: PEG with dressing intact. ?? Areas of Occupation and Performance Skills: ?? Basic Activities of Daily Living:?? Feeding: Pt continues to have a peg tube in place, is self feeding some, Grooming: Pt requires assist for set up then supervision for safety and thoroughness for task Bathing: Sponge bath - Supervision and occasional assist for bathing, cues for sequencing Upper Body Dressing: Assist for set up then supervision for safety Lower Body Dressing: Assist for set up, occasional minimal assist for task completion Toileting: Supervision Toilet Transfer: supervision for safety, FWW walker ambulated with gait belt high (due to PEG) frombed to BR. Tub Transfer: NA Functional Mobility: FWW and min contact assist. Supervision supine to-from sit ?? Instrumental Activities of Daily Living: Not formally assessed. ?? Rest and Sleep: Pt is able to sleep through the night, able to fall asleep and stay asleep. Meds taken to assist with sleeping ?? 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 ?? Leisure: Unknown at this time ?? Social Participation: Pt using phone for talking with friends and family, aphasia is a barrier to full communication Pt has a boyfriend - Ever. Sister Stacey Rogers Assessment/Plan Assessment This pt is a 50 year old female admitted to inpatient acute rehabilitation on 03/02/2020 s/p craniectomy for hematoma evacuation on 02/16/2020. She is making slow gains in therapy, with increased participation in self care tasks and therapy activities, increased safety with transfers and mobility for self care activities. Her performance does fluctuate with limitations from head pain, constipation, and occasional nausea. She does continue to have significant aphasia, questionable cognitive impairments, vision impairments, which continue to limit her overall safety and independence with all activities. While she no longer has a sitter in her room, she does continue to require use of a bed alarm for overall safety. 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 She is on track towards set goals below. GOALS: Short Term Goals: 10 days ?? Appropriate use of call miranda PROGRESSING 03/15/2020 ?? Min assist for sequencing morning routine tasks MET 03/15/2020 ?? Tolerate 60 min OT session MET 03/15/2020 ?? Complete LB care with supervision only post set up MET 03/15/2020 ?? Complete UB care with supervision only post set up MET 03/15/2020 ?? Oriented x 3 using compensatory strategies PROGRESSING 03/15/2020 Goals set 03/15/2020: ?? Pt will be independent with morning self care routine at an ambulatory level with Adaptive equipment for safety as needed ?? Pt will complete simple cold meal preparation with supervision for safety at an ambulatory levelwith adaptive equipment as needed ?? Pt will complete dynavision testing with more than 50 hits as a measure of improved scanning to return to instrumental activities of daily living ?? Pt will complete shower activity with supervision for safety ?? Pt will demonstrate independence with calling 911 for support if needed with medical emergency Psychiatric Nurse Goals: 2 weeks ?? Supervision to complete morning care routine. ?? Independent with medication management using pill box. ? Pt will demonstrate proper safety awareness with self-care tasks ? Complete simple cold meal prep with supervision. ? Pt will demonstrate modified independence with communicating language issues to friends for addedsupport with functional communication ?? Plan Intervention: Occupational therapy treatment for 60-90 minutes a day 6 times a week for 10-14 day(s) Interventions include: Occupation Based Activity - Basic Activities of Daily Living, Occupation Based Activity - Instrumental Activities of Daily Living, Purposeful Activity, Preparatory Method - Exercise, Preparatory Method - Neuromuscular Education and Patient/Family Education Further Data: Dynavision, BITs, meal preparation, shower routine Patient/Family Education: Activity modification, safety with vision scanning, Discharge Plan: potentially home with family for support Pager: [phone] Tam Gentile OT, 03/15/2020, 11:03 * Rohit Sterling, PT - 03/14/2020 1306 EDT [facility] Physical Therapy Encounter Note Date of Service: 03/14/2020 , Activity: Level of risk of Harm B, Activity as tolerated, , Additional Precautions Information: LBone flap precautions (helmet OOB), R Rooke Boot in bed, PEG tube SUBJECTIVE: Reports that she has had a rough morning. OBJECTIVE: Start time: 1130 Total Therapy Minutes: 0 minute(s) Interventions completed today: No interventions completed during the session due to patient declined. Patient was with nursing from 1130 until 1155 in the bathroom. Patient back to bed reporting pain and the inability to participate at this time. 2nd Session Time: Start time: 1130 Total Therapy Minutes: 30 minutes Interventions completed today: Vital Signs: Patient Vitals for the past 3 hrs: BP Pulse 03/14/20 1500 94/60 80 03/14/20 1435 98/68 80 ] Gait Training: ?? 350' using a front wheeled walker. Started with min contact A of 1 and wheelchair of 2nd. Progressed to close supervision with wheelchair follow. Reduced step length, slight right antalgic pattern. 2-3 minute sitting rest ?? 300' without device. Min contact A with wheelchair follow of 2nd. Forrest pattern with more pronounced antalgic pattern on right. Sitting rest for 2-3 minutes ?? 50' using front-wheeled walker. Reported fatigue and back discomfort. 1 minute sitting rest. ?? 100' using a front-wheeled walker with close supervision. Patient independently path finding to room. ?? Patient/Family Education: Topic: Impact her morning had on her performance today Learner: patient Method: verbal Barriers to Learning: language Outcome: verbalized understanding Team Communication: ?? Blanca: AZALEA. Reports that the patient has been agitated today. She had no documented bowel movement since 03/11. Patient was reported abdominal discomfort this am. Had bowel movement around 1130. ASSESSMENT: Ynes was unable to participate in her morning session secondary to abdominal discomfort and head ache. Nursing reported she had a bowel movement around 1130 which they were assisting her with. Patient able to participate in the afternoon however with more gait instability and performance compared to previous notes. PLAN: ?? Gait endurance with and without walker ?? Balance training Contact information: Pager: [phone] Rohit Sterling PT, DPT 03/14/2020 13:06 * Jaden Rutherford MD - 03/14/2020 1157 EDT Physiatry Progress Note Admit Date: 03/02/2020 Hospital Day: LOS: 12 days Date of Service: 03/14/2020 Chief Complaint: Left temporoparietal hemorrhage status post decompressive craniectomy, setting of central venous thrombosis 02/14/2020 Subjective: Remains with expressive and receptive language deficits limiting history. Her gastrostomy tube is been noted to be leaking. Having intermittent nausea. No headache Current Facility-Administered Medications: acetaminophen (TYLENOL) tablet 650 mg oral Q4H PRN aspirin chewable tablet 81 mg oral DAILY bisacodyL (DULCOLAX) suppository 10 mg rectal Q48H PRN calcium carbonate (TUMS) 200 mg calcium (500 mg) per chewable tablet tablet,chewable 1 Tab oral QIDPRN docusate (COLACE) liquid 100 mg oral BID PRN enoxaparin (LOVENOX) injection 80 mg subcutaneous Q12H guaiFENesin tablet 200 mg oral Q6H PRN HYDROmorphone (DILAUDID) tablet 2-4 mg oral Q4H PRN lisinopriL (PRINIVIL) tablet 20 mg oral DAILY melatonin tablet 3 mg oral QHS metoprolol (LOPRESSOR) tablet 25 mg oral BID multivitamin (FLINTSTONES) chewable tablet 1 Tab oral DAILY nicotine (NICODERM CQ) 7 mg/24 hr patch 1 Patch transdermal Q24H ondansetron (ZOFRAN-ODT) disintegrating tablet 4 mg oral Q4H PRN pantoprazole (PROTONIX) tablet 40 mg oral DAILY papain-alpha amylase-cellulase (CLOG ZAPPER) 2-5 mL feeding tube PRN QUEtiapine (SEROQUEL) tablet 25 mg oral QHS senna (SENOKOT) tablet 1 Tab oral BID PRN Objective/Physical Exam: VS: Patient Vitals for the past 8 hrs: BP Pulse Resp Temp 03/14/20 0640 95/66 83 16 35.9 ??C (96.6 ??F) Pain: Patient Vitals for the past 8 hrs: Numeric Pain Level (Scale 1-10) 03/14/20 0815 5 03/14/20 0814 5 Weight: Weight : 83.7 kg (184 lb 8 oz) Glucose Readings (last 8 readings): No results for input(s): GLUCOSEFINGE in the last 72 hours. I&O: Intake/Output Summary (Last 24 hours) at 03/14/2020 1155 Last data filed at 03/14/2020 0835 Gross per 24 hour Intake 300 ml Output -- Net 300 ml Exam: Gen: Alert, pleasant, no distress HEENT: Left decompressive hemicraniectomy site is full with ghassan in place and surgical incision.No clear visual field cut. No facial droop. Pharynx is clear. Neck supple. Mucosal membranes are moist Skin: no rashes Cardiac: Cor RRR Pulmonary: clear to auscultation bilaterally Abdomen: normal bowel sounds, soft, nontender to palpation, PEG tube has a small split in it just above the bumper, which is the site of the leak. Musculoskeletal: no joint tenderness, deformity or swelling, no muscular tenderness noted, full range of motion without pain Neuro: Expressive greater than receptive aphasia affect: Alert motor: Strength no clear focal weakness, although there may be some relative right lower extremity weakness. Tone normal Reflexes: trace Sensation: No extinction no clear focal sensory loss Cerebellar: no tremors Labs: I have personally reviewed CBC: Lab Results Component Value Date WBC 6.43 03/02/2020 RBC 4.10 03/02/2020 HGB 13.2 03/02/2020 HCT 39.6 03/02/2020 MCV 97 03/02/2020 MCH 32.2 03/02/2020 MCHC 33.3 03/02/2020 PLT 462 (H) 03/02/2020 NEUTROABS 5.03 02/14/2020 BMP: Lab Results Component Value Date NA 134 (L) 03/07/2020 K 5.1 (H) 03/07/2020 CL 102 03/07/2020 CO2 24 03/07/2020 BUN 26 03/07/2020 CREATININE 0.57 03/07/2020 CALCIUM 8.8 02/14/2020 MG 1.7 03/02/2020 PHOS 4.6 (H) 03/07/2020 LABALBU 3.9 05/07/2001 Assessment/Problems: (update problem list daily as appropriate) Patient Active Problem List Diagnosis Date Noted ??? *(H)Left-sided nontraumatic intracerebral hemorrhage ([facility]) 03/02/2020 Priority: Medium Status post decompressive hemicraniectomy ??? Brain herniation ([facility] 02/17/2020 Priority: Medium ??? Cerebral edema ([facility]) 02/17/2020 Priority: Medium ??? 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 (H)Cerebral venous thrombosis 02/14/2020 Priority: Medium ??? Encounter for insertion or removal of intrauterine contraceptive device 02/12/2020 Priority: Medium ??? Nicotine dependence, unspecified, uncomplicated 02/12/2020 Priority: Medium ??? Perimenopausal 02/12/2020 Priority: Medium ??? Post concussion syndrome 02/12/2020 Priority: Medium ??? Tobacco abuse 12/02/2012 Priority: Medium ??? Chronic low back pain 10/13/2012 Priority: Medium ??? Back pain 09/25/2012 Priority: Medium Plan: 1. Left frontal intraparenchymal hemorrhage: Status post decompressive craniectomy. Patient with residual mild right-sided weakness, significant expressive and receptive aphasia, dysphagia. Full PT, OT, ANESTHESIOLOGY PHYSICIAN ASSISTANT to address mobility, self care communication and swallowing function. 24 hour rehab nursing for self care deficits. Helmet on when out of bed. Diet advanced to regular consistency. 2. 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 Evidence of left IJ, sigmoid and transverse sinuses as well. Now on therapeutic dose Lovenox. Continued follow-up with hematology and thrombosis clinic in 2-4 weeks from inpatient rehabilitation admission. Low molecular weight heparin level obtained and was subtherapeutic with Lovenox adjusted to 80 mg every 12 hours. Level is therapeutic. 3. Right upper lobe pulmonary embolism, left upper extremity DVT: Now on therapeutic dose Lovenox. ?? 4. History of anxiety/depression: Monitor clinically. Currently on Seroquel at at bedtime. Considermedical psychology consultation as language deficits allow. She has listed allergies to citalopram and duloxetine. 5. Nutrition: PEG tube placed 02/18/2020. Diet is currently regular consistency. I have asked surgery their thoughts on removing the gastrostomy tube given the current leak, although it is only 20 days since placement. Jaden Rutherford MD 03/14/2020 11:55 * Oliva Martinez MS CCC-ANESTHESIOLOGY PHYSICIAN ASSISTANT - 03/14/2020 0828 EDT Speech-Language Pathology Daily and Current Progress Note ANESTHESIOLOGY PHYSICIAN ASSISTANT Diagnosis: Aphasia and oropharyngeal phase dysphagia Medical Diagnosis: Cerebral venous thrombosis and resultant intraparenchymal hemorrhage in the leftfrontotemporal area Date of Onset: 02/14/20 Date of Referral: 03/02/20 Subjective/Objective SUBJECTIVE: 1st session: My brother, my older younger (jargon) and my friend... My friend is... I can't think of it. Everyone today is very hard to understand because something is wrong. I don't understand. 2nd session: I got my medicines and I'm not taking 4 dunamens waiting for my stomach to be (jargon). People pleat (treat) me like I'm nothing here. It's really hard. It's a little blur for me. Sometimes I have trouble seeing. OBJECTIVE: Date of Service: 03/14/2020 First Session: Start Time: 1035 Total Therapy minutes: 25 minute(s) comm-cog tx (started 5-minutes late d/t patient toileting needs) Second Session: Start Time: 1400 Total Therapy minutes: 30 minute(s): comm-cog tx Current Treatment Objectives: Auditory Comprehension: Goal #1: Patient will identify objects in a visual field of 4-6 with >80% accuracy provided minimal cues from the clinician and repetitions for fewer than 50% of trials. 03/11: Session 2- Patient identifies objects in a visual field of 4 with 100% accuracy provided written word and auditory presentation of the word. Patient identifies objects in a visual field of 6 with 80% accuracy provided written word and auditory presentation of the word. Patient requires significant repetition of each item provided field of 6 and encouragement as she was hesitant to answer frequently stating that it made her nervous to have more than 4 items to choose from. 03/12: Session 2- Patient identifies objects in a visual field of 4 with 80% accuracy provided written word and auditory presentation of the word. 03/14: Session 1- Patient identifies objects in a visual field of 4 with 70% accuracy provided written word and auditory presentation of the word. Goal #2: Patient will answer simple yes/no questions immediately after review with >70% accuracyprovided moderate cues for attention and initiation. 03/07: Session 1: Patient responded to Y/N questions with jargon and some intelligible word related to questions (e.g., It was my father's name in response to Is your last name 'Cindy?'). 03/08: Session 1- Patient responds to simple Y/N questions with 30% accuracy. Errorless learning wasattempted with mixed success. 1. 6- Error: Inaccurate attempt at the task item 2. 6- Error: Inaccurate attempt at the task item 3. 6- Error: Inaccurate attempt at the task item 4. 9- Repeated: Accurate, after instructions are repeated (errorless learning utilized) 5. 6- Error: Inaccurate attempt at the task item (errorless learning attempted) 6. 9- Repeated: Accurate, after instructions are repeated (errorless learning utilized) 7. 6- Error: Inaccurate attempt at the task item (errorless learning attempted) 8. 6- Error: Inaccurate attempt at the task item (errorless learning attempted) 9. 9- Repeated: Accurate, after instructions are repeated (errorless learning utilized) 10. 6- Error: Inaccurate attempt at the task item 03/09: Session 1- Patient responds to simple Y/N questions with 60% accuracy. Today patient benefitsfrom written yes/no board and gestures for prompting. 1. 6- Error: Inaccurate attempt at the task item; 9- repeated 2. 9- Repeated: Accurate, after instructions are repeated 3. 15- Complete: accurate, responsive, complete, prompt, efficient 4. 6- Error: Inaccurate attempt at the task item 5. 13- Complete-delayed: Accurate, responsive, complete or complex, delayed 6. 15- Complete: accurate, responsive, complete, prompt, efficient 7. 13- Complete-delayed: Accurate, responsive, complete or complex, delayed 8. 13- Complete-delayed: Accurate, responsive, complete or complex, delayed 9. 13- Complete-delayed: Accurate, responsive, complete or complex, delayed 10. 6- Error: Inaccurate attempt at the task item 4/16: Session 1- Patient responds to simple Y/N questions with 20% accuracy. Today patient benefitsfrom written yes/no board and gestures for prompting. 1. 6- Error: Inaccurate attempt at the task item 2. 6- Error: Inaccurate attempt at the task item 3. 8- Cued: Accurate, after cue is given 4. 15- Complete: accurate, responsive, complete, prompt, efficient 5. 6- Error: Inaccurate attempt at the task item 6. 6- Error: Inaccurate attempt at the task item 7. 6- Error: Inaccurate attempt at the task item 8. 15- Complete: accurate, responsive, complete, prompt, efficient 9. 6- Error: Inaccurate attempt at the task item 10. 6- Error: Inaccurate attempt at the task item 4/17: Session 1- Patient responds to simple Y/N questions with 50% accuracy. Today patient benefitsfrom written yes/no board and gestures for prompting. 1. 9- Repeated: Accurate, after instructions are repeated 2. 15- Complete: accurate, responsive, complete, prompt, efficient 3. 15- Complete: accurate, responsive, complete, prompt, efficient 4. 6- Error: Inaccurate attempt at the task item 5. 8- Cued: Accurate, after cue is given 6. 6- Error: Inaccurate attempt at the task item 7. 6- Error: Inaccurate attempt at the task item 8. 15- Complete: accurate, responsive, complete, prompt, efficient 9. 6- Error: Inaccurate attempt at the task item 10. 15- Complete: accurate, responsive, complete, prompt, efficient /18: Session 2- Patient responds to simple Y/N questions with 60% accuracy with credit given for answers that were correct following a delay or repetition of the stimulus. Today patient benefits from written yes/no board and gestures for prompting. 1. 13- Complete-delayed: Accurate, responsive, complete or complex, delayed 2. 6- Error: Inaccurate attempt at the task item 3. 9- Repeated: Accurate, after instructions are repeated 4. 15- Complete: accurate, responsive, complete, prompt, efficient 5. 13- Complete-delayed: Accurate, responsive, complete or complex, delayed 6. 6- Error: Inaccurate attempt at the task item 7. 6- Error: Inaccurate attempt at the task item 8. 15- Complete: accurate, responsive, complete, prompt, efficient 9. 6- Error: Inaccurate attempt at the task item 10. 15- Complete: accurate, responsive, complete, prompt, efficient 03/14: Session 2- Patient responds to simple Y/N questions with 60% accuracy with credit given for answers that were correct following a delay or repetition of the stimulus. Today patient benefits from written yes/no board and gestures for prompting. 1. 6- Error: Inaccurate attempt at the task item 2. 15- Complete: accurate, responsive, complete, prompt, efficient 3. 6- Error: Inaccurate attempt at the task item 4. 13- Complete-delayed: Accurate, responsive, complete or complex, delayed 5. 2- Attention: No response, but patient attends to the guido 6. 13- Complete-delayed: Accurate, responsive, complete or complex, delayed 7. 15- Complete: accurate, responsive, complete, prompt, efficient 8. 10- Corrected: Accurate, self-corrected 9. 15- Complete: accurate, responsive, complete, prompt, efficient 10. 15- Complete: accurate, responsive, complete, prompt, efficient Goal #3: Patient will follow simple 1-step commands related to functional environment with >70% accuracy provided moderate verbal/tactile/visual cues in order to increase functional integration into environment. 03/09: Session 2- Patient follows simple 1-step commands related to environment with 0% accuracy independently. Accuracy increases to 90% accuracy following a model by the clinician with slowed auditory presentation of directions. 03/10: Session 1- Patient follows simple 1-step commands related to environment with 0% accuracy independently. Accuracy increases to 90% accuracy following a model by the clinician with slowed auditory presentation of directions. 03/12: Session 1- Patient follows simple 1-step commands related to environment with 0% accuracy independently. Accuracy increases to 62% accuracy following a model by the clinician with slowed auditory presentation of directions. 03/14: Session 2- Patient follows simple 1-step commands related to environment with 100% accuracy following a model by the clinician with slowed auditory presentation of directions. Expressive Language: Goal #1: Patient will recite automatic speech tasks given moderate cues with >70% accuracy. 03/08: Session 1- Patient recites automatic speech tasks with the clinician. See results below: 1-10: 100% accuracy following a model The Alphabet: Unable to perform in unison Months of the Years: Attempted to have patient repeat each month after the clinician: November, December, (jargon), (jargon), , June, April medication, June compation, sincation medication,seegus, French, lessonagus Musa, Decemegas 03/09: Session 1- Patient recites automatic speech tasks with the clinician. See results below: 1-10: 100% accuracy following a starter cue one... The Alphabet: T1: A, me, S, d, 8, q, A, me, d, ec, q, g, h, eed, h ; T2: Patient was able to achieve 50% in unison with the clinician but eventually perseverated on w Days of the Week: Patient perseverated on w, k despite max cues, models, and attempts to perform in unison Session 2- Patient recites automatic speech tasks with the clinician. See results below: 1-10: 80% accuracy following a repetition of the instructions; 80% accuracy in trial 2 following a repetition of the instructions. The Alphabet: A, 7 you mean? following max cues and models Days of the Week: Patient perseverated on w, k despite max cues, models, and attempts to perform in unison 03/10: Session 1- Patient recites automatic speech tasks with the clinician. See results below: 1-10: 100% accuracy The Alphabet: a, q, q, jews, each, l, l, elf Days of the Week: w, q, w, q, w, q, l, q, l, q 03/12: Session 2- Patient recites automatic speech tasks with the clinician. See results below: 1-10: 90% accuracy The Alphabet: l, n, h, stomich, a, m, h, m, etch, is it etch? Days of the Week: elmen, elmen threemen, riley three hundred, h, h, eight? No, stomach 03/14: Session 2- Patient recites automatic speech tasks with the clinician. See results below: 1-10: 90% accuracy Days of the Week: feminal, lessons, lezimen... Goal #2: Patient will name objects (real or pictured) to confrontation with >70% accuracy provided moderate verbal cues. 03/08: Session 1- Patient names real pictured objects to confrontation in 4 out of 29 trials provided errorless learning and maximum cues from the clinician. 03/09: Session 2- Patient names real pictured objects to confrontation with 10% accuracy today. 03/10: Session 1- Patient names real pictured objects to confrontation with 0% accuracy. that's a nice pretty outfit (house) argenips... Something you eat. (grapes) Lissessis... Communities (shoes) subins (wrestle) sunspickum (vacuum) stomach (tongue) maskick... Stomach (moreno) Jurgenarsesis (brain) she's here (nurse) stomach (popcorn) Session 2- Patient names real pictured objects to confrontation with 0% accuracy. stomach (watch) sillicus (eye) lillicarpus (zipper) firekin (shark) jargon (shirt) jargon (spoon) stugish sodagis (shoes) stymish (chair) david (cow) jargon (baby) mamus (barn) stomach (bat) stomach talks (lips) 03/11: Session 1- Patient names real pictured objects to confrontation with 0% accuracy. Target Response 1. socks Stomach remus 2. chair Stomach 3. finger Stomach mesar mesizen 4. baby Stomach lady 5. helmet stomach 6. Earth liden stomach minizes 7. mandaen Stomach I'm really confused with that 8. pepper [employer] 9. shorts Stomach misters 10. sink Magic stomach medicine, damn I know what this one is 03/11: Session 1- Patient names real pictured objects to confrontation with 0% accuracy. Target Response 1. teeth Stomach frun frun 2. golf He's about to hawk the golnick. 3. crown Sagic, stomach, stomach 4. rice Looks like sasage, nice 5. money sinines 6. horse Soap foeis 7. doctor Be destroyance 8. legs Toenicks, stomach, stimach, neglegs 9. wallet Stomach, stomach 10. pizza Snack, stomach, snomach, sanwick 03/14: Session 1- Patient names real pictured objects to confrontation with 0% accuracy. Target Response 1. playground somiser 2. onion solick 3. chair solick medicine 4. zipper I know it but I can't remember 5. chest stilmer 6. boxing I don't know 7. soldier sleeping medication 8. saw stomach 9. kitchen liquor 10. corn Touching stomach Probe: naming an object from a fo2 multiple choice- 20% accuracy (patient struggling with repeatingthe words, producing neologisms or paraphasias) Goal #3: Patient will repeat 1-2 syllable functional words with >70% accuracy provided a visual model by the clinician. 03/09: Session 2- Patient repeats 1-2 syllable functional words with 10% accuracy provided a visual model by the clinician. For 60% of trials patient produced neologisms and for 30% of trials patient produced phonemic paraphasias. See results below: 2. 6- Error: Inaccurate attempt at the task item; neologism 3. 6- Error: Inaccurate attempt at the task item; neologism 4. 15- Complete: accurate, responsive, complete, prompt, efficient 5. 14- Distorted: accurate, responsive, complete or complex, prompt, distorted; phonemic paraphasia 6. 6- Error: Inaccurate attempt at the task item; neologism 7. 6- Error: Inaccurate attempt at the task item; neologism 8. 14- Distorted: accurate, responsive, complete or complex, prompt, distorted; phonemic paraphasia 9. 14- Distorted: accurate, responsive, complete or complex, prompt, distorted; phonemic paraphasia 10. 6- Error: Inaccurate attempt at the task item; neologism 03/10: Session 1- Patient repeats 1-2 syllable functional words with 30% accuracy provided a visual model by the clinician. For 70% of trials patient produced neologisms. See results below: 1. 8- Cued: Accurate, after cue is given; neologism for first few trials; required tactile and visual cues 2. 15- Complete: accurate, responsive, complete, prompt, efficient 3. 6- Error: Inaccurate attempt at the task item; neologism 4. 6- Error: Inaccurate attempt at the task item; neologism 5. 15- Complete: accurate, responsive, complete, prompt, efficient 6. 15- Complete: accurate, responsive, complete, prompt, efficient 7. 6- Error: Inaccurate attempt at the task item; neologism 8. 6- Error: Inaccurate attempt at the task item; neologism 9. 6- Error: Inaccurate attempt at the task item; neologism 10. 6- Error: Inaccurate attempt at the task item; neologism Session 2- Patient repeats 1-2 syllable functional words with 30% accuracy provided a visual model by the clinician. For 70% of trials patient produced neologisms. 03/11: Session 1- Patient repeats 1-2 syllable functional words with 0% accuracy provided a visual model by the clinician. See results below: Target Response 1. socks stomach 2. chair Stomach mesausen 3. finger megas megasarus 4. baby Lady mesasus 5. helmet helmamarier 6. Earth siroath 7. mandaen churchtons 8. pepper lymins 9. shorts short hundreds 10. sink [place]; sank; sank 03/12: Session 1- Patient repeats 1-2 syllable functional words with 50% accuracy provided a visual model by the clinician. See results below: Target Response Error Type 1. teeth clun neologism 2. golf nogolsh neologism 3. crown clanin neologism 4. rice rice - 5. money money - 6. horse horse - 7. doctor Stomach menesis Perseveration + neologism 8. legs Leg? that's it? leg - 9. wallet [place]ck Phonemic paraphasia 10. pizza pizza. I know that. - 03/14: Session 1- Patient repeats 1-2 syllable functional words with 30% accuracy provided a visual model by the clinician. Errors were typically phonemic paraphasias with the occasional neologism. See results below: Target Response Error Type 1. onion umion Phonemic paraphasia 2. chair air Phonemic paraphasia 3. zipper zipper - 4. chest shate neologism 5. boxing dockwis neologism 6. soldier soulmir Phonemic paraphasia 7. saw sawmich Neologism + perseveration 8. kitchen kitchen - 9. corn corn - 10. vacuum vactum Phonemic paraphasia Session 2- Patient repeats 1-2 syllable functional words with 10% accuracy provided a visual model by the clinician. Errors were typically phonemic paraphasias with the occasional neologism. See results below: Target Response Error Type 1. hat s- um, hat - 2. salad holad Phonemic paraphasia 3. chair Stomach attic Neologism + perseveration 4. bird Stomach umanick Neologism + perseveration 5. money kathya attic Phonemic paraphasia + neologism 6. hand hammock Phonemic paraphasia 7. rice dammish neologism 8. pool amicus neologism 9. glasses dimanick neologism 10. watch gamican neologism Probe: Repeating functional phrases Target Response 1. Hi. Hi. 2. How are you? How are yule? 3. My name is Ynes. My name spill it. 4. I need help. I need united something. 5. I'm hungry. Nide medical under. Reading Comprehension: Goal #1: The patient will identify the written word in a field of 2, given an auditory model with 80% accuracy. 03/11: Session 2- Patient identifies written words in a field of 2, given an auditory model with 81%accuracy. 03/12: Session 2- Patient identifies written words in a field of 2, given an auditory model with 50%accuracy. Goal #2: The patient will identify the written word to match a given object or picture with 80% accuracy in a field of 3 (presented in a vertical orientation). 03/12: Session 1- Patient identifies the written word from a field of 3, given a picture of an object, with 53% accuracy. 03/14: Session 2- Attempted but could not complete d/t patient complaining of not being able to see stimuli d/t them being blurry. Written Expression: Goal #1: The patient will write functional words and short phrases related to personal information (e.g., name, address, date of ) with 90% accuracy given mod verbal/visual cues. 03/09: Session 2- Patient writes functional words and short phrases related to personal information.See results below: Name: 100% accuracy Address: Patient does not provide street number, street name, or apartment number. She did write inapartment number once clinician wrote in the street number and street name. She got 100% accuracy for city and state. Phone Number: 100% accuracy Occupation: Unable to complete. 03/12: Session 1- Patient writes functional words and short phrases related to personal information.See results below: Name: 100% accuracy Address: 100% accuracy following a self-correction Phone Number: 100% accuracy Occupation: 100% accuracy following request for clarification and mod cues from the clinician PATIENT/FAMILY EDUCATION: Patient/Family Education: Patient/family education was provided today including: rehab goals and questions were addressed. Topic: Patient/Family education and training was completed today including: the role of Speech-Language Pathology aphasia questions were addressed. Learner: patient Method of Education: Verbal Barriers to Learning/Education: patient's level of arousal, fatigue, and presence of language impairment Patient: needs further instruction and education Family: No family present. Patient/Family Goals: Patient states I want to get better. Team Communication: Discussed possibility of HLTBI program with rehab team ?? Assessment /CLINICAL IMPRESSIONS: Ynes White is a female 50 y.o. 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 During patient's first session today, Ynes demonstrates improvements in repetition of 1-2 syllable words. Errors are more closely related to the word (phonemic paraphasias vs neologisms). She continues to demonstrate perseveration on the words stomach and medicine. Auditory comprehension of items in a field of 4 is decreased today, likely d/t patient's level of fatigue. Today during her second session, Ynes was visibly and verbally agitated regarding an item that was brought in by her friend for her yesterday that has disappeared. This agitation directly impacted her performance during her second session. She also reports visual problems today, stating that things are blurry. Ynes remains appropriate for 30 min BID sessions for aphasia intervention based on her level of arousal, fatigue, and engagement. Ynes White also currently presents with severe expressive and receptive aphasia, most consistent with Wernicke's type but with some deviation from typical Wernicke's type presentation. Patient appears to be able to follow some basic 1-step commands effectively provided context, models, slow auditory presentation of information, and tactile cues as needed. Repetition, object naming, word fluency, sentence completion, and responsive speech are all impaired. Ynes demonstrates a favorable response to use of gestures to assist with her auditory comprehension. Expressive language is characterized as fluent but mostly consists of word salad with many instances of jargon, neologisms, andparaphasias with occasional moments of intelligible discourse scattered throughout. Ynes's discourse could also be described as tangential and perseverative. She attempts to utilize gestures to augment her expressive language, but is not always successful. She is also demonstrating breakdowns in reading comprehension at the short sentence level and significant deficits in written expression atthe word level, compounded by impaired auditory comprehension preventing writing to dictation and impaired naming preventing written naming. These deficits impact the patient's ability to functionally communicate her wants, needs, and ideas and hold conversation. She presents with severe impairments in reading comprehension, however, she demonstrates some success with reading comprehension at theword level, which appears to be a relative strength compared to her auditory comprehension. She exhibits significant breakdown in reading comprehension at the short sentence level. Ynes also demonstrates significant deficits in written expression at the single word level. She demonstrates relative strength in copying words and sentences, as well as writing numbers. ? Patient has demonstrated good gains in swallow function since admission to inpatient rehabilitation. Patient currently presents with adequate oral containment; slow, but complete oral management and mastication, and adequate transport with trials of regular textures. She exhibits improved bolus roxane pulation and swallowed response compared to previous sessions. No overt signs and symptoms of penetration/aspiration noted. As such, she demonstrates readiness for advancement to regular diet with thin liquids with distant supervision, small bites/sips, and low stimulation evironment at mealtimes. P atient is at low risk of aspiration at this time. Anticipate patient will tolerate upgrade to regular textures. Do not anticipate further need for dysphagia management at this time. Based on evaluation to date, it has been determined that the patient demonstrates deficits that impact functioning in daily activities and hinder participation in life situations.??Patient currently requires assistance from others to communicate basic wants and needs and direct her medical care. Sachawilaurent continue to benefit from her needs being anticipated and simplified information presented to her. Information should be repeated and said in different ways, and augmented with pictures and gestures. The patient is demonstrating strengths in motivation and some intact basic expressive language skills which should be utilized during the patient's plan of care to maximize gains. Contextual factors that may impact the patient's ability to progress toward rehab goals include: severity of language impairment, need for physical assistance, tolerance level for therapy, and pain. Based on patient's tolerance level, it is recommended that patient participate in 30 minute BID sessions initially and build toward 60 minute sessions as tolerated. Given patient's age, independence prior to admission, and social/occupational demands, she would benefit from intensive ANESTHESIOLOGY PHYSICIAN ASSISTANT intervention. Based on the patient's rehab potential, motivation, prior level of function, and the contextual factors, the patient's prognosis is considered good. It is anticip ated that the patient will make functional gains in expressive and receptive language skills with intensive skilled 1:1 speech language pathology services in the inpatient rehabilitation setting. Functional Communication Measures ([place] [employer], 2002). The Functional Communication Measures (FCM???s) are a series of 7 point rating scales, ranging fromleast functional (Level 1) to most functional (Level 7). They have been developed by [employer] to describe different aspects of patient???s functional communication and swallowing abilities over the course of ANESTHESIOLOGY PHYSICIAN ASSISTANT intervention. ?? Spoken Language Comprehension Level 2: With consistent, maximal cues, the individual is able to follow simple directions, respond to simple yes/no questions in context, and respond to simple words orphrases related to personal needs. Spoken Language Expression Level 3: The communication partner must assume responsibility for structuring the communication exchange, and with consistent and moderate cueing, the individual can produce words and phrases that are appropriate and meaningful in context. Reading Level 3: The individual reads single letters and common words, and with consistent moderatecueing, can read some words that are less familiar, longer, and more complex. Writing Level 2: The individual writes single letters and common words with consistent maximal cueing. ?? Swallowing Level 6: Swallowing is safe, and the individual east and drinks independently and may rarely require minimal cueing. The individual usually self-cues when difficulty occurs. May need to avoid specific food items (e.g., popcorn and nuts), or require additional time (due to dysphagia). ?? GOALS: Snf Goals: Projected Functional Communication Measures at discharge: Spoken Language Comprehension Level 4: Individual consistently responds accurately to simple yes/noquestions and occasionally follows simple directions without cues. Moderate contextual support is usually needed to understand complex sentences/messages. The individual is able to understand limited conversations about routine daily activities with familiar communication partners. Spoken Language Expression Level 4: The individual is successfully able to initiate communication using spoken language in simple, structured conversations in routine daily activities with familiar communication partners. The individual usually requires moderate cueing, but is able to demonstrate use of simple sentences (i.e., semantics, syntax, and morphology) and rarely uses complex sentences/messages. Reading Level 4: The individual reads words and phrases related to routine daily activities, and words that are less familiar, longer, and more complex. The individual usually requires moderate cueing to read sentences of approximately 5-7 words. Writing Level 3: The individual writes single letters and common words, and with consistent moderate cueing, can write some words that are less familiar, longer, and more complex. Short Term Goals: Auditory Comprehension: Goal #1: Patient will identify objects in a visual field of 4-6 with >80% accuracy provided minimal cues from the clinician and repetitions for fewer than 50% of trials. Goal #2: Patient will answer simple yes/no questions immediately after review with >70% accuracyprovided moderate cues for attention and initiation. Goal #3: Patient will follow simple 1-step commands related to functional environment with >70% accuracy provided moderate verbal/tactile/visual cues in order to increase functional integration into environment. ?? Expressive Language: Goal #1: Patient will recite automatic speech tasks given moderate cues with >70% accuracy. Goal #2: Patient will name objects (real or pictured) to confrontation with >70% accuracy provided moderate verbal cues. -Downgrade: Patient will name objects (real or pictured) to confrontation with >50% accuracy provided maximum verbal cues. Goal #3: Patient will repeat 1-2 syllable functional words with >70% accuracy provided a visual model by the clinician. ?? Reading Comprehension: Goal #1: The patient will identify the written word in a field of 2, given an auditory model with 80% accuracy. Goal #2: The patient will identify the written word to match a given object or picture with 80% accuracy in a field of 3 (presented in a vertical orientation). Written Expression: Goal #1: The patient will write functional words and short phrases related to personal information (e.g., name, address, date of ) with 90% accuracy given mod verbal/visual cues. ?? Plan RECOMMENDATIONS: Patient will continue to benefit for further ANESTHESIOLOGY PHYSICIAN ASSISTANT intervention in this setting to address dysphagia and aphasia management and intervention needs. ?? Recommend inpatient rehabilitation ANESTHESIOLOGY PHYSICIAN ASSISTANT services: Patient will be seen for a minimum of 5x/week @ 30minutes BID due to current tolerance level. Swallowing Recommendations: Diet: Regular Liquids: IDDSI Level 0- Thin Medications: Medication should be administered crushed with pureed foods or whole with thin liquidsif pt prefers. ?? Precautions: ?? distant supervision at meal times to ensure compliance with strategies. ?? small bites/sips ?? 1 bite at a time ?? complete oral care following each meal ?? Patient needs assist with set up of meals. ?? Patient should eat in a low stimulation environment to increase attention to meal time. ?? When eating, patient should be upright??at 90??degrees as tolerated. ?? Patient may??use a straw when drinking liquids. ?? Oral Care Precautions: Individuals with dysphagia are at increased risk for aspiration. Aspiration occurs when food, liquid, or saliva travels down the airway (to the lungs) instead of down the esophagus (to the stomach). Aspiration can have very serious consequences, including aspiration pneumonia. The mouth contains bacteria that can be dangerous if it enters the lungs and can increase risk of development of aspiration pneumonia. Therefore, it is very important for individuals with dysphagia to follow strict oral care guidelines to reduce the risk of aspirating dangerous oral bacteria. ? Remove any visible debris (pieces of leftover food, etc.) before brushing teeth. ?? Bonanza teeth thoroughly before and after ALL intake (meals, snacks, etc.). ?? [place] tongue from back to front. ?? [place] the roof of your mouth and cheek pockets. ?? Clean mouth thoroughly each morning and at bedtime. ?? Rinse mouth with water after brushing teeth. ?? Floss teeth daily. ?? Mouth wash is NOT a substitute for brushing teeth. ?? Communication Access and Shared Decision Making Recommendations Please support communication access and shared decision making ability by doing the following: ?? Support Comprehension: ?? Have a pen and paper ready when communicating. ?? Please present information slowly and simplify. Augment with drawings, diagrams, gestures and pointing. ?? Ask one question at a time. ?? Have only one person speak at a time. ?? Environmental modifications:? Simplify the environment: ?? Carryover/Discharge??and Healthcare Decision making considerations ?? Will need family support for the successful carryover of discharge recommendations. ?? Currently comprehension of non-contextual information is a barrier Oliva Martinez MS CCC-ANESTHESIOLOGY PHYSICIAN ASSISTANT 03/14/2020 15:29 * Nolvia Lamar, OT - 03/14/2020 0804 EDT Rehabilitation Therapies Inpatient Rehabilitation [facility] Occupational Therapy Encounter Note Date of Service: 03/14/2020 Subjective/Objective SUBJECTIVE: I don't feel well! OBJECTIVE: Session One Start time: 0930 minute(s) Total Therapy Minutes: 0 minute(s) *See note below. Second session Start Time: 1330 Total Minutes Treatment 2: 30 minute(s) Interventions included: Session One: -Pt laying in bed, tearful at therapist arrival. Reporting pain, frustration and confusion. Hard tofully understand what pt was saying due to aphasia, but she kept gesturing to feeding tube and bottom. Discussed with nursing who reported that pt's feeding tube may be malfunctioning ( just in to assess) and that she wanted pt to have a suppository due to lack of BM since the . Pt had been de clining with nurse, but told this fiction and nonfiction prose writer that she was willing. Due to pt's endorsed distress and pain, decided to move forward with nursing care in this area to hopefully achieve pain relief. Session Two *Focus of session on progressing activity tolerance. Therapeutic Activity -At start of session, pt reporting continued stomach pain and also pointing to head. Nodded when asked if she had a headache. Pt successfully reported that she did have a large bowel movement earlierin day and that her feeding tube had been fixed; both verified by nursing. -Pt reported that she needed to toilet, but upon sitting up reported that she no longer needed to. -RN brought in pain medication for pt; she was very appreciative. -Practiced deep breathing strategies to promote additional pain management and relaxation strategies. -Pt reported feeling weird in the head and lightheaded upon completion. Blood pressure was taken and was 98/63. After two minutes, it was 109/65. Oxygen saturation and heart rate were within normallimits. -Pt agreeable to walking to gym. Upon standing and taking a few steps, pt reported she needed to sit and reported dizziness. BP was 93/62. Within three minutes, pt reported no longer feeling symptomatic and her BP was back up to 117/66. Decided to complete remainder of session at w/c level to prioritize other goals. -Pathfinding: When asked to locate gym, pt self-propelled w/c successfully to gym. When asked to find nurse's station, pt did not appear to understand, but she did successfully locate her nurse in the nurse's station. Returned to room without cues. -Visual scanning and direction following: Pt was asked to locate picture of her doctor and picture of Ethel on bulletin board display. Pt took extra time to locate Dr. Rutherford (middle of board) and vacillated between him and another man, but eventually located him successfully without cues. Quickly located Ethel without delay (right side of board). Vital signs: Vital signs have been stable with interventions and were not monitored. Patient/Family Education: See above. Team Communication: With RN and PT regarding pt's status Assessment/Plan ASSESSMENT: Poor tolerance of therapy today due to stomach pain, but improved by second session. Report of dizziness upon standing and taking a few steps with drop in BP that quickly resolved upon rest. Pt understandably frustrated by her decreased ability to communicate. Good basic pathfinding skills. PLAN: Continue per primary OT's POC. Pager: [phone] Nolvia Lamar OT * Aida Goodman DPT - 03/12/2020 0920 EDT [facility] Rehabilitation Therapy Inpatient Rehabilitation Center [facility] Physical Therapy Encounter Note Date of Service: 03/12/2020 Subjective/Objective Subjective Pt indicated she had a headache but it was getting better after having taken medication Objective Start time: 1400 Total Therapy Minutes: 60 minute(s) Interventions completed today: Neuromuscular re-education: with seated rests between ?? Cross over stepping with verbal and demonstrative cuing with min A 30' x 4 ?? Braiding stepping with verbal and demonstrative cuing with min/mod A 30' x 4 ?? Walking on toes with min A 50' x 4 ?? Walking on heels with min A x 50' x 4 Gait Training: -Ambulation without an AD ~250 feet with min contact A x 1. Deviations included wide base of support, decreased speed, step length and height. Inattention to right side noted and cues required to avoid obstacles. - Ambulating ~300 x 2 with seated rest with RW for endurance occasional standing rest breaks, cuingfor upright posture with close supervision -Increased time for path finding to find the gym and her room however able to do so without additional cues. Patient/Family Education: Topic: Plan, recovery process Learner: patient Method: verbal and demonstration Barriers to Learning: cognitive deficits and language Outcome: verbalized understanding Assessment/Plan Assessment Pt tolerated session well with focus on gait for endurance, path finding, and neuromuscular re-education. Pt requires occasional seated rest breaks 2/2 fatigue and her stomach feeling upset. Pt able to path find to the gym and her room with increased time today without additional cuing. May benefitfrom additional path finding for unfamiliar locations. Plan Per primary PT Contact information: AIDA GOODMAN DPT 03/12/2020 9:21 * Oliva Martinez MS [facility]-ANESTHESIOLOGY PHYSICIAN ASSISTANT - 03/12/2020 0808 EDT Speech-Language Pathology Daily and Current Progress Note ANESTHESIOLOGY PHYSICIAN ASSISTANT Diagnosis: Aphasia and oropharyngeal phase dysphagia Medical Diagnosis: Cerebral venous thrombosis and resultant intraparenchymal hemorrhage in the leftfrontotemporal area Date of Onset: 02/14/20 Date of Referral: 03/02/20 Subjective/Objective SUBJECTIVE: 1st session: I just can't do nothing right now. Just give me 10 minutes and I'll try. I tried my firend and I couldn't understand her. I couldn't even walk right. (andreinan) so this'll help... They shoulda given me when I woke up. I don't even know what I'm talking about right now. (jargon). I bet when you say it, I'll know it. We got 80 people coming tomorrow. That's weird, I don't recognize si rob. I'm having inatangelock right now. 2nd session: After you I saw Drawn. I saw her for an hour and we cleaned and she helped me (reyes). Two middle medicans. I'm gonna be out for a good hour, no leg, no (jarliliann). I know there's someone that knows this, but I'm not the mervat, something I'm not reckoning it. I'll guess but I (abiliogon). I have trouble seeing it. I won't be able to talk to her about stuff, but I know now that she knows about me. (re: her therapist Emma Queen who called during our session) OBJECTIVE: Date of Service: 03/12/2020 First Session: Start Time: 09 Total Therapy minutes: 30 minute(s) comm-cog tx Second Session: Start Time: 1130 Total Therapy minutes: 30 minute(s): comm-cog tx Current Treatment Objectives: Auditory Comprehension: Goal #1: Patient will identify objects in a visual field of 4-6 with >80% accuracy provided minimal cues from the clinician and repetitions for fewer than 50% of trials. 03/11: Session 2- Patient identifies objects in a visual field of 4 with 100% accuracy provided written word and auditory presentation of the word. Patient identifies objects in a visual field of 6 with 80% accuracy provided written word and auditory presentation of the word. Patient requires significant repetition of each item provided field of 6 and encouragement as she was hesitant to answer frequently stating that it made her nervous to have more than 4 items to choose from. 03/12: Session 2- Patient identifies objects in a visual field of 4 with 80% accuracy provided written word and auditory presentation of the word. Goal #2: Patient will answer simple yes/no questions immediately after review with >70% accuracyprovided moderate cues for attention and initiation. 03/07: Session 1: Patient responded to Y/N questions with jargon and some intelligible word related to questions (e.g., It was my father's name in response to Is your last name 'Cindy?'). 03/08: Session 1- Patient responds to simple Y/N questions with 30% accuracy. Errorless learning wasattempted with mixed success. 1. 6- Error: Inaccurate attempt at the task item 2. 6- Error: Inaccurate attempt at the task item 3. 6- Error: Inaccurate attempt at the task item 4. 9- Repeated: Accurate, after instructions are repeated (errorless learning utilized) 5. 6- Error: Inaccurate attempt at the task item (errorless learning attempted) 6. 9- Repeated: Accurate, after instructions are repeated (errorless learning utilized) 7. 6- Error: Inaccurate attempt at the task item (errorless learning attempted) 8. 6- Error: Inaccurate attempt at the task item (errorless learning attempted) 9. 9- Repeated: Accurate, after instructions are repeated (errorless learning utilized) 10. 6- Error: Inaccurate attempt at the task item 03/09: Session 1- Patient responds to simple Y/N questions with 60% accuracy. Today patient benefitsfrom written yes/no board and gestures for prompting. 1. 6- Error: Inaccurate attempt at the task item; 9- repeated 2. 9- Repeated: Accurate, after instructions are repeated 3. 15- Complete: accurate, responsive, complete, prompt, efficient 4. 6- Error: Inaccurate attempt at the task item 5. 13- Complete-delayed: Accurate, responsive, complete or complex, delayed 6. 15- Complete: accurate, responsive, complete, prompt, efficient 7. 13- Complete-delayed: Accurate, responsive, complete or complex, delayed 8. 13- Complete-delayed: Accurate, responsive, complete or complex, delayed 9. 13- Complete-delayed: Accurate, responsive, complete or complex, delayed 10. 6- Error: Inaccurate attempt at the task item 03/10: Session 1- Patient responds to simple Y/N questions with 20% accuracy. Today patient benefitsfrom written yes/no board and gestures for prompting. 1. 6- Error: Inaccurate attempt at the task item 2. 6- Error: Inaccurate attempt at the task item 3. 8- Cued: Accurate, after cue is given 4. 15- Complete: accurate, responsive, complete, prompt, efficient 5. 6- Error: Inaccurate attempt at the task item 6. 6- Error: Inaccurate attempt at the task item 7. 6- Error: Inaccurate attempt at the task item 8. 15- Complete: accurate, responsive, complete, prompt, efficient 9. 6- Error: Inaccurate attempt at the task item 10. 6- Error: Inaccurate attempt at the task item 4/17: Session 1- Patient responds to simple Y/N questions with 50% accuracy. Today patient benefitsfrom written yes/no board and gestures for prompting. 1. 9- Repeated: Accurate, after instructions are repeated 2. 15- Complete: accurate, responsive, complete, prompt, efficient 3. 15- Complete: accurate, responsive, complete, prompt, efficient 4. 6- Error: Inaccurate attempt at the task item 5. 8- Cued: Accurate, after cue is given 6. 6- Error: Inaccurate attempt at the task item 7. 6- Error: Inaccurate attempt at the task item 8. 15- Complete: accurate, responsive, complete, prompt, efficient 9. 6- Error: Inaccurate attempt at the task item 10. 15- Complete: accurate, responsive, complete, prompt, efficient 03/12: Session 2- Patient responds to simple Y/N questions with 60% accuracy with credit given for answers that were correct following a delay or repetition of the stimulus. Today patient benefits from written yes/no board and gestures for prompting. 1. 13- Complete-delayed: Accurate, responsive, complete or complex, delayed 2. 6- Error: Inaccurate attempt at the task item 3. 9- Repeated: Accurate, after instructions are repeated 4. 15- Complete: accurate, responsive, complete, prompt, efficient 5. 13- Complete-delayed: Accurate, responsive, complete or complex, delayed 6. 6- Error: Inaccurate attempt at the task item 7. 6- Error: Inaccurate attempt at the task item 8. 15- Complete: accurate, responsive, complete, prompt, efficient 9. 6- Error: Inaccurate attempt at the task item 10. 15- Complete: accurate, responsive, complete, prompt, efficient Goal #3: Patient will follow simple 1-step commands related to functional environment with >70% accuracy provided moderate verbal/tactile/visual cues in order to increase functional integration into environment. 03/09: Session 2- Patient follows simple 1-step commands related to environment with 0% accuracy independently. Accuracy increases to 90% accuracy following a model by the clinician with slowed auditory presentation of directions. 03/10: Session 1- Patient follows simple 1-step commands related to environment with 0% accuracy independently. Accuracy increases to 90% accuracy following a model by the clinician with slowed auditory presentation of directions. 03/12: Session 1- Patient follows simple 1-step commands related to environment with 0% accuracy independently. Accuracy increases to 62% accuracy following a model by the clinician with slowed auditory presentation of directions. Expressive Language: Goal #1: Patient will recite automatic speech tasks given moderate cues with >70% accuracy. 03/08: Session 1- Patient recites automatic speech tasks with the clinician. See results below: 1-10: 100% accuracy following a model The Alphabet: Unable to perform in unison Months of the Years: Attempted to have patient repeat each month after the clinician: November, December, (jargon), (jargon), , June, April medication, June compation, sincation medication,seegus, French, lessonagus Musa, [place]rianna 03/09: Session 1- Patient recites automatic speech tasks with the clinician. See results below: 1-10: 100% accuracy following a starter cue one... The Alphabet: T1: A, me, S, d, 8, q, A, me, d, ec, q, g, h, eed, h ; T2: Patient was able to achieve 50% in unison with the clinician but eventually perseverated on w Days of the Week: Patient perseverated on w, k despite max cues, models, and attempts to perform in unison Session 2- Patient recites automatic speech tasks with the clinician. See results below: 1-10: 80% accuracy following a repetition of the instructions; 80% accuracy in trial 2 following a repetition of the instructions. The Alphabet: A, 7 you mean? following max cues and models Days of the Week: Patient perseverated on w, k despite max cues, models, and attempts to perform in unison 03/10: Session 1- Patient recites automatic speech tasks with the clinician. See results below: 1-10: 100% accuracy The Alphabet: a, q, q, jews, each, l, l, elf Days of the Week: w, q, w, q, w, q, l, q, l, q 03/12: Session 2- Patient recites automatic speech tasks with the clinician. See results below: 1-10: 90% accuracy The Alphabet: l, n, h, stomich, a, m, h, m, etch, is it etch? Days of the Week: elmen, elmen threemen, riley three hundred, h, h, eight? No, stomach Goal #2: Patient will name objects (real or pictured) to confrontation with >70% accuracy provided moderate verbal cues. 03/08: Session 1- Patient names real pictured objects to confrontation in 4 out of 29 trials provided errorless learning and maximum cues from the clinician. 03/09: Session 2- Patient names real pictured objects to confrontation with 10% accuracy today. 03/10: Session 1- Patient names real pictured objects to confrontation with 0% accuracy. that's a nice pretty outfit (house) argenips... Something you eat. (grapes) Lissessis... Communities (shoes) subins (wrestle) sunspickum (vacuum) stomach (tongue) maskick... Stomach (moreno) Jurgenarsesis (brain) she's here (nurse) stomach (popcorn) Session 2- Patient names real pictured objects to confrontation with 0% accuracy. stomach (watch) sillicus (eye) lillicarpus (zipper) firekin (shark) jargon (shirt) jargon (spoon) stugish sodagis (shoes) stymish (chair) david (cow) jargon (baby) mamus (barn) stomach (bat) stomach talks (lips) 03/11: Session 1- Patient names real pictured objects to confrontation with 0% accuracy. Target Response 1. socks Stomach remus 2. chair Stomach 3. finger Stomach mesar mesizen 4. baby Stomach lady 5. helmet stomach 6. Earth liden stomach minizes 7. mandaen Stomach I'm really confused with that 8. pepper [employer] 9. shorts Stomach misters 10. sink Magic stomach medicine, damn I know what this one is 03/11: Session 1- Patient names real pictured objects to confrontation with 0% accuracy. Target Response 1. teeth Stomach frun frun 2. golf He's about to hawk the golnick. 3. crown Sagic, stomach, stomach 4. rice Looks like sasage, nice 5. money sinines 6. horse Soap foeis 7. doctor Be destroyance 8. legs Toenicks, stomach, stimach, neglegs 9. wallet Stomach, stomach 10. pizza Snack, stomach, snomach, sanwick Goal #3: Patient will repeat 1-2 syllable functional words with >70% accuracy provided a visual model by the clinician. 03/09: Session 2- Patient repeats 1-2 syllable functional words with 10% accuracy provided a visual model by the clinician. For 60% of trials patient produced neologisms and for 30% of trials patient produced phonemic paraphasias. See results below: 2. 6- Error: Inaccurate attempt at the task item; neologism 3. 6- Error: Inaccurate attempt at the task item; neologism 4. 15- Complete: accurate, responsive, complete, prompt, efficient 5. 14- Distorted: accurate, responsive, complete or complex, prompt, distorted; phonemic paraphasia 6. 6- Error: Inaccurate attempt at the task item; neologism 7. 6- Error: Inaccurate attempt at the task item; neologism 8. 14- Distorted: accurate, responsive, complete or complex, prompt, distorted; phonemic paraphasia 9. 14- Distorted: accurate, responsive, complete or complex, prompt, distorted; phonemic paraphasia 10. 6- Error: Inaccurate attempt at the task item; neologism 03/10: Session 1- Patient repeats 1-2 syllable functional words with 30% accuracy provided a visual model by the clinician. For 70% of trials patient produced neologisms. See results below: 1. 8- Cued: Accurate, after cue is given; neologism for first few trials; required tactile and visual cues 2. 15- Complete: accurate, responsive, complete, prompt, efficient 3. 6- Error: Inaccurate attempt at the task item; neologism 4. 6- Error: Inaccurate attempt at the task item; neologism 5. 15- Complete: accurate, responsive, complete, prompt, efficient 6. 15- Complete: accurate, responsive, complete, prompt, efficient 7. 6- Error: Inaccurate attempt at the task item; neologism 8. 6- Error: Inaccurate attempt at the task item; neologism 9. 6- Error: Inaccurate attempt at the task item; neologism 10. 6- Error: Inaccurate attempt at the task item; neologism Session 2- Patient repeats 1-2 syllable functional words with 30% accuracy provided a visual model by the clinician. For 70% of trials patient produced neologisms. 03/11: Session 1- Patient repeats 1-2 syllable functional words with 0% accuracy provided a visual model by the clinician. See results below: Target Response 1. socks stomach 2. chair Stomach mesausen 3. finger megas megasarus 4. baby Lady mesasus 5. helmet helmamarier 6. Earth siroath 7. mandaen churchtons 8. pepper lymins 9. shorts short hundreds 10. sink [place]; sank; sank 03/12: Session 1- Patient repeats 1-2 syllable functional words with 50% accuracy provided a visual model by the clinician. See results below: Target Response Error Type 1. teeth clun neologism 2. golf nogolsh neologism 3. crown clanin neologism 4. rice rice - 5. money money - 6. horse horse - 7. doctor Stomach menesis Perseveration + neologism 8. legs Leg? that's it? leg - 9. wallet walwalleck Phonemic paraphasia 10. pizza pizza. I know that. - Reading Comprehension: Goal #1: The patient will identify the written word in a field of 2, given an auditory model with 80% accuracy. 03/11: Session 2- Patient identifies written words in a field of 2, given an auditory model with 81%accuracy. 03/12: Session 2- Patient identifies written words in a field of 2, given an auditory model with 50%accuracy. Goal #2: The patient will identify the written word to match a given object or picture with 80% accuracy in a field of 3 (presented in a vertical orientation). 03/12: Session 1- Patient identifies the written word from a field of 3, given a picture of an object, with 53% accuracy. Written Expression: Goal #1: The patient will write functional words and short phrases related to personal information (e.g., name, address, date of ) with 90% accuracy given mod verbal/visual cues. 03/09: Session 2- Patient writes functional words and short phrases related to personal information.See results below: Name: 100% accuracy Address: Patient does not provide street number, street name, or apartment number. She did write inapartment number once clinician wrote in the street number and street name. She got 100% accuracy for city and state. Phone Number: 100% accuracy Occupation: Unable to complete. 03/12: Session 1- Patient writes functional words and short phrases related to personal information.See results below: Name: 100% accuracy Address: 100% accuracy following a self-correction Phone Number: 100% accuracy Occupation: 100% accuracy following request for clarification and mod cues from the clinician PATIENT/FAMILY EDUCATION: Patient/Family Education: Patient/family education was provided today including: rehab goals and questions were addressed. Topic: Patient/Family education and training was completed today including: the role of Speech-Language Pathology aphasia questions were addressed. Learner: patient Method of Education: Verbal Barriers to Learning/Education: patient's level of arousal, fatigue, and presence of language impairment Patient: needs further instruction and education Family: No family present. Patient/Family Goals: Patient states I want to get better. Team Communication: Discussed possibility of HLTBI program with rehab team ?? Assessment /CLINICAL IMPRESSIONS: Ynes White is a female 50 y.o. 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 During patient's first session today, Ynes demonstrates continued difficulty with repetition and confrontational naming, utilizing neologisms, phonemic paraphasias, and perseverated utterances, although repetition appears to be improving. Writing biographical information is improving. Auditory comprehension for yes/no questions and sentence level material appears to be improving steadily but remains severely impaired. Yes/no board and gestures appeared effective today.Today during her second session, Ynes demonstrates a slight decrease in auditory comprehension of pictured objects from a field of 4. She continues to struggle significantly with automatic speech tasks. Ynes demonstrates improvements in identifying written words from a field of 3 today when presented with an auditory model and an associated picture. Accuracy decrea ses in a field of 2 when the associated picture cue is removed. Ynes remains appropriate for 30 min BID sessions for aphasia intervention based on her level of arousal, fatigue, and engagement. Ynes White also currently presents with severe expressive and receptive aphasia, most consistent with Wernicke's type but with some deviation from typical Wernicke's type presentation. Patient appears to be able to follow some basic 1-step commands effectively provided context, models, slow auditory presentation of information, and tactile cues as needed. Repetition, object naming, word fluency, sentence completion, and responsive speech are all impaired. Ynes demonstrates a favorable response to use of gestures to assist with her auditory comprehension. Expressive language is characterized as fluent but mostly consists of word salad with many instances of jargon, neologisms, andparaphasias with occasional moments of intelligible discourse scattered throughout. Ynes's discourse could also be described as tangential and perseverative. She attempts to utilize gestures to augment her expressive language, but is not always successful. She is also demonstrating breakdowns in reading comprehension at the short sentence level and significant deficits in written expression atthe word level, compounded by impaired auditory comprehension preventing writing to dictation and impaired naming preventing written naming. These deficits impact the patient's ability to functionally communicate her wants, needs, and ideas and hold conversation. She presents with severe impairments in reading comprehension, however, she demonstrates some success with reading comprehension at theword level, which appears to be a relative strength compared to her auditory comprehension. She exhibits significant breakdown in reading comprehension at the short sentence level. Ynes also demonstrates significant deficits in written expression at the single word level. She demonstrates relative strength in copying words and sentences, as well as writing numbers. ? Patient has demonstrated good gains in swallow function since admission to inpatient rehabilitation. Patient currently presents with adequate oral containment; slow, but complete oral management and mastication, and adequate transport with trials of regular textures. She exhibits improved bolus roxane pulation and swallowed response compared to previous sessions. No overt signs and symptoms of penetration/aspiration noted. As such, she demonstrates readiness for advancement to regular diet with thin liquids with distant supervision, small bites/sips, and low stimulation evironment at mealtimes. P lui is at low risk of aspiration at this time. Anticipate patient will tolerate upgrade to regular textures. Do not anticipate further need for dysphagia management at this time. Based on evaluation to date, it has been determined that the patient demonstrates deficits that impact functioning in daily activities and hinder participation in life situations.??Patient currently requires assistance from others to communicate basic wants and needs and direct her medical care. Ptwilaurent continue to benefit from her needs being anticipated and simplified information presented to her. Information should be repeated and said in different ways, and augmented with pictures and gestures. The patient is demonstrating strengths in motivation and some intact basic expressive language skills which should be utilized during the patient's plan of care to maximize gains. Contextual factors that may impact the patient's ability to progress toward rehab goals include: severity of language impairment, need for physical assistance, tolerance level for therapy, and pain. Based on patient's tolerance level, it is recommended that patient participate in 30 minute BID sessions initially and build toward 60 minute sessions as tolerated. Given patient's age, independence prior to admission, and social/occupational demands, she would benefit from intensive ANESTHESIOLOGY PHYSICIAN ASSISTANT intervention. Based on the patient's rehab potential, motivation, prior level of function, and the contextual factors, the patient's prognosis is considered good. It is anticip ated that the patient will make functional gains in expressive and receptive language skills with intensive skilled 1:1 speech language pathology services in the inpatient rehabilitation setting. Functional Communication Measures ([place] [employer]- [employer], 2002). The Functional Communication Measures (FCM???s) are a series of 7 point rating scales, ranging fromleast functional (Level 1) to most functional (Level 7). They have been developed by [facility] to describe different aspects of patient???s functional communication and swallowing abilities over the course of ANESTHESIOLOGY PHYSICIAN ASSISTANT intervention. ?? Spoken Language Comprehension Level 2: With consistent, maximal cues, the individual is able to follow simple directions, respond to simple yes/no questions in context, and respond to simple words orphrases related to personal needs. Spoken Language Expression Level 3: The communication partner must assume responsibility for structuring the communication exchange, and with consistent and moderate cueing, the individual can produce words and phrases that are appropriate and meaningful in context. Reading Level 3: The individual reads single letters and common words, and with consistent moderatecueing, can read some words that are less familiar, longer, and more complex. Writing Level 2: The individual writes single letters and common words with consistent maximal cueing. ?? Swallowing Level 6: Swallowing is safe, and the individual east and drinks independently and may rarely require minimal cueing. The individual usually self-cues when difficulty occurs. May need to avoid specific food items (e.g., popcorn and nuts), or require additional time (due to dysphagia). ?? GOALS: Psychiatric Nurse Goals: Projected Functional Communication Measures at discharge: Spoken Language Comprehension Level 4: Individual consistently responds accurately to simple yes/noquestions and occasionally follows simple directions without cues. Moderate contextual support is usually needed to understand complex sentences/messages. The individual is able to understand limited conversations about routine daily activities with familiar communication partners. Spoken Language Expression Level 4: The individual is successfully able to initiate communication using spoken language in simple, structured conversations in routine daily activities with familiar communication partners. The individual usually requires moderate cueing, but is able to demonstrate use of simple sentences (i.e., semantics, syntax, and morphology) and rarely uses complex sentences/messages. Reading Level 4: The individual reads words and phrases related to routine daily activities, and words that are less familiar, longer, and more complex. The individual usually requires moderate cueing to read sentences of approximately 5-7 words. Writing Level 3: The individual writes single letters and common words, and with consistent moderate cueing, can write some words that are less familiar, longer, and more complex. Short Term Goals: Auditory Comprehension: Goal #1: Patient will identify objects in a visual field of 2-3 with >70% accuracy provided moderate cues for attention and information processing.- Goal Met. Upgrade: Patient will identify objects in a visual field of 4-6 with >80% accuracy provided minimal cues from the clinician and repetitions for fewer than 50% of trials. Goal #2: Patient will answer simple yes/no questions immediately after review with >70% accuracyprovided moderate cues for attention and initiation. Goal #3: Patient will follow simple 1-step commands related to functional environment with >70% accuracy provided moderate verbal/tactile/visual cues in order to increase functional integration into environment. ?? Expressive Language: Goal #1: Patient will recite automatic speech tasks given moderate cues with >70% accuracy. Goal #2: Patient will name objects (real or pictured) to confrontation with >70% accuracy provided moderate verbal cues. Goal #3: Patient will repeat 1-2 syllable functional words with >70% accuracy provided a visual model by the clinician. ?? Reading Comprehension: Goal #1: The patient will identify the written word in a field of 2, given an auditory model with 80% accuracy. Goal #2: The patient will identify the written word to match a given object or picture with 80% accuracy in a field of 3 (presented in a vertical orientation). Written Expression: Goal #1: The patient will write functional words and short phrases related to personal information (e.g., name, address, date of ) with 90% accuracy given mod verbal/visual cues. ?? Plan RECOMMENDATIONS: Patient will continue to benefit for further ANESTHESIOLOGY PHYSICIAN ASSISTANT intervention in this setting to address dysphagia and aphasia management and intervention needs. ?? Recommend inpatient rehabilitation ANESTHESIOLOGY PHYSICIAN ASSISTANT services: Patient will be seen for a minimum of 5x/week @ 30minutes BID due to current tolerance level. Swallowing Recommendations: Diet: Regular Liquids: IDDSI Level 0- Thin Medications: Medication should be administered crushed with pureed foods or whole with thin liquidsif pt prefers. ?? Precautions: ?? distant supervision at meal times to ensure compliance with strategies. ?? small bites/sips ?? 1 bite at a time ?? complete oral care following each meal ?? Patient needs assist with set up of meals. ?? Patient should eat in a low stimulation environment to increase attention to meal time. ?? When eating, patient should be upright??at 90??degrees as tolerated. ?? Patient may??use a straw when drinking liquids. ?? Oral Care Precautions: Individuals with dysphagia are at increased risk for aspiration. Aspiration occurs when food, liquid, or saliva travels down the airway (to the lungs) instead of down the esophagus (to the stomach). Aspiration can have very serious consequences, including aspiration pneumonia. The mouth contains bacteria that can be dangerous if it enters the lungs and can increase risk of development of aspiration pneumonia. Therefore, it is very important for individuals with dysphagia to follow strict oral care guidelines to reduce the risk of aspirating dangerous oral bacteria. ? Remove any visible debris (pieces of leftover food, etc.) before brushing teeth. ?? Bonanza teeth thoroughly before and after ALL intake (meals, snacks, etc.). ?? [place] tongue from back to front. ?? [place] the roof of your mouth and cheek pockets. ?? Clean mouth thoroughly each morning and at bedtime. ?? Rinse mouth with water after brushing teeth. ?? Floss teeth daily. ?? Mouth wash is NOT a substitute for brushing teeth. ?? Communication Access and Shared Decision Making Recommendations Please support communication access and shared decision making ability by doing the following: ?? Support Comprehension: ?? Have a pen and paper ready when communicating. ?? Please present information slowly and simplify. Augment with drawings, diagrams, gestures and pointing. ?? Ask one question at a time. ?? Have only one person speak at a time. ?? Environmental modifications:? Simplify the environment: ?? Carryover/Discharge??and Healthcare Decision making considerations ?? Will need family support for the successful carryover of discharge recommendations. ?? Currently comprehension of non-contextual information is a barrier Oliva Martinez MS CCC-ANESTHESIOLOGY PHYSICIAN ASSISTANT 03/12/2020 13:24 * Eliza Douglas, OT - 03/12/2020 0742 EDT [facility] Rehabilitation Therapy Inpatient Rehabilitation [facility] Occupational Therapy Encounter Note Date of Service: 03/12/2020 SUBJECTIVE: I'm getting nervous Pt indicated she was nervous about how she was going to manage her head pain after discharge. SESSION 1 OBJECTIVE: Start time: 1000 Treatment time: 60 Scheduled time: 60 Total Therapy Minutes: 60 minute(s) Interventions included: Self-Care/Home Management Toileting: Cues to ring call miranda. Ambulated to BR with min contact assist. Educated how and when to call nurse using call miranda in the bathroom. Grooming: Brushed teeth from sitting with supervision. IADLS: Made the bad: With min contact assist and 2 rest breaks. She was very pleased with her performance. Organized her room: Min contact assist and cues, pt identified items out of place, put them where they should go, wiped down the sink area. Call miranda use: Time spent educating provided re: importance of call miranda. Call miranda clipped to her shirt as a reminder Vital signs: Vital signs were monitored and were stable throughout occupational therapy session. BP 95/58 HR 95 Patient/Family Education: Topic: call miranda use Learner: patient Method: verbal and demonstration Barriers to Learning: cognitive deficits and language Outcome: verbalized understanding ASSESSMENT: Pt continues to need frequent breaks to control head pain, nausea and dizziness. She preformed very well with functional tasks of bed making, but required cues for less structured task ofcleaning her room. PLAN: Continue OT. Establish routines: Ambulatory ADL Make the bed Clean the room Simple meal prep - nepalese muffin with butter and a beverage Pager: [phone] Eliza Douglas, JONATAN, 03/12/2020, 7:42 * Alicia Gabriel RD - 03/11/2020 0125 EDT Nutrition Assessment Note: [facility] Alic[facility] Gabriel [facility], RD, CD ([facility] Dietitian Phone [phone]) Patient Name: Ynes White Rehab Admission Date: 03/02/2020 Hospitalization at [facility]: 02/13/30 Rehab Admission Dx: Left-sided nontraumatic intracerebral hemorrhage (HCC-CMS) Reason for Visit: Follow Up BACKGROUND DATA Clinical Summary: Ynes White is a 50 y.o. female admitted to acute rehab with left temporoparietal hemorrhage status post decompressive craniectomy; s/p PEG placement 02/18/20 Past Medical History: Diagnosis Date ??? Left-sided nontraumatic intracerebral hemorrhage (HCC-CMS) 03/02/2020 Status post decompressive hemicraniectomy Interview/Subjective: Patient reports she is eating better when interviewed today. Nursing confirms she is eating ~50 % meals and will give her a Boost shake to try this afternoon. Current Nutrition Orders: DIET REGULAR Free water 120 ml every 6 hours via PEG TF d/c'd 03/10/20 Estimated Nutrition Intake: 50 % trays Nutrition-Focused Physical Findings: GI: last BM 03/11/20 Skin: surgical laceration/incision Edema: trace RLE and LLE Anthropometrics: Height: 170.2 cm (67) Wt Readings from Last 6 Encounters: 03/11/20 83.1 kg (183 lb 1.6 oz) 03/02/20 89.9 kg (198 lb 1.6 oz) 02/14/20 Weight-98.5 kg (217 lbs) BMI: Body mass index is 28.68 kg/m??. Weight Change: weight loss of 31 lbs over 2.5 weeks, ? Accuracy of weight readings Nutrition-Related Lab Values of Concern: Lab Results Component Value Date/Time HGB 13.2 03/02/2020 06:12 HCT 39.6 03/02/2020 06:12 WBC 6.43 03/02/2020 06:12 NA 134 (L) 03/07/2020 06:50 K 5.1 (H) 03/07/2020 06:50 CO2 24 03/07/2020 06:50 CL 102 03/07/2020 06:50 BUN 26 03/07/2020 06:50 CREATININE 0.57 03/07/2020 06:50 HGBA1C 5.4 02/14/2020 17:48 PHOS 4.6 (H) 03/07/2020 06:50 MG 1.7 03/02/2020 06:12 TRIG 176 02/18/2020 05:44 ALT 17 05/07/2001 11:00 AST 15 05/07/2001 11:00 ALKPHOS 60 05/07/2001 11:00 TBIL 0.3 05/07/2001 11:00 Nutrition-Related Medications: Current Facility-Administered Medications: acetaminophen (TYLENOL) tablet 650 mg oral Q4H PRN aspirin chewable tablet 81 mg oral DAILY bisacodyL (DULCOLAX) suppository 10 mg rectal Q48H PRN calcium carbonate (TUMS) 200 mg calcium (500 mg) per chewable tablet tablet,chewable 1 Tab oral QIDPRN docusate (COLACE) liquid 100 mg oral BID PRN enoxaparin (LOVENOX) injection 80 mg subcutaneous Q12H guaiFENesin tablet 200 mg oral Q6H PRN HYDROmorphone (DILAUDID) tablet 2-4 mg oral Q4H PRN lisinopriL (PRINIVIL) tablet 20 mg oral DAILY melatonin tablet 3 mg oral QHS metoprolol (LOPRESSOR) tablet 25 mg oral BID multivitamin (FLINTSTONES) chewable tablet 1 Tab oral DAILY nicotine (NICODERM CQ) 7 mg/24 hr patch 1 Patch transdermal Q24H ondansetron (ZOFRAN-ODT) disintegrating tablet 4 mg oral Q4H PRN pantoprazole (PROTONIX) tablet 40 mg oral DAILY papain-alpha amylase-cellulase (CLOG ZAPPER) 2-5 mL feeding tube PRN QUEtiapine (SEROQUEL) tablet 25 mg oral QHS senna (SENOKOT) tablet 1 Tab oral BID PRN ASSESSMENT Patient with improving po intake. Diet upgraded. Supplemental tube feedings dc'd due to patient consistently refusing them and also due to stomach discomfort. Will add Boost shakes to trays as a source of additional calories/protein as patient only eating ~50 % at this time. Estimated Daily Nutritional Needs:??using??adjusted??weight of 73??kg 25-30??(using 73??kg) = 7642-6730??kcals/day 1.2??g/kg protein (using 73??kg) = 88??g protein/day 25??mL/kg fluid (using 73??kg) = 1825??mL fluid/day Nutrition Risk Level: Moderate (2) MEDICAL NUTRITION THERAPY PLAN & RECOMMENDATIONS -Will send Boost Plus with meals -Monitor po intake -Weekly weight for trend -RD following * Jaden Rutherford MD - 03/11/2020 1201 EDT Physiatry Progress Note Admit Date: 03/02/2020 Hospital Day: LOS: 9 days Date of Service: 03/11/2020 Chief Complaint: Left temporoparietal hemorrhage status post decompressive craniectomy, setting of central venous thrombosis 02/14/2020 Subjective: Remains with expressive and receptive language deficits limiting history. Having intermittent nausea. P.o. intake improved. No apparent headache. Current Facility-Administered Medications: acetaminophen (TYLENOL) tablet 650 mg oral Q4H PRN aspirin chewable tablet 81 mg oral DAILY bisacodyL (DULCOLAX) suppository 10 mg rectal Q48H PRN calcium carbonate (TUMS) 200 mg calcium (500 mg) per chewable tablet tablet,chewable 1 Tab oral QIDPRN docusate (COLACE) liquid 100 mg oral BID PRN enoxaparin (LOVENOX) injection 80 mg subcutaneous Q12H guaiFENesin tablet 200 mg oral Q6H PRN HYDROmorphone (DILAUDID) tablet 2-4 mg oral Q4H PRN lisinopriL (PRINIVIL) tablet 20 mg oral DAILY melatonin tablet 3 mg oral QHS metoprolol (LOPRESSOR) tablet 25 mg oral BID multivitamin (FLINTSTONES) chewable tablet 1 Tab oral DAILY nicotine (NICODERM CQ) 7 mg/24 hr patch 1 Patch transdermal Q24H ondansetron (ZOFRAN-ODT) disintegrating tablet 4 mg oral Q4H PRN pantoprazole (PROTONIX) tablet 40 mg oral DAILY papain-alpha amylase-cellulase (CLOG ZAPPER) 2-5 mL feeding tube PRN QUEtiapine (SEROQUEL) tablet 25 mg oral QHS senna (SENOKOT) tablet 1 Tab oral BID PRN Objective/Physical Exam: VS: Patient Vitals for the past 8 hrs: BP Pulse Resp Temp SpO2 03/11/20 1000 96/63 -- -- -- 95 % 03/11/20 0638 92/51 89 14 36.5 ??C (97.7 ??F) -- Pain: Patient Vitals for the past 8 hrs: Numeric Pain Level (Scale 1-10) Asleep 03/11/20 0842 4 -- 03/11/20 0700 0 Reassessed, sleeping comfortably, RR WNL. 03/11/20 0523 -- Reassessed, sleeping comfortably, RR WNL. 03/11/20 0414 8 -- Weight: Weight : 83.1 kg (183 lb 1.6 oz) Glucose Readings (last 8 readings): No results for input(s): GLUCOSEFINGE in the last 72 hours. I&O: Intake/Output Summary (Last 24 hours) at 03/11/2020 1201 Last data filed at 03/11/2020 1100 Gross per 24 hour Intake 810 ml Output -- Net 810 ml Exam: Gen: Alert, pleasant, no distress HEENT: Left decompressive hemicraniectomy site is full with ghassan in place and surgical incision.No clear visual field cut. No facial droop. Pharynx is clear. Neck supple. Mucosal membranes are moist Skin: no rashes Cardiac: Cor RRR Pulmonary: clear to auscultation bilaterally Abdomen: normal bowel sounds, soft, nontender to palpation, PEG tube is intact Musculoskeletal: no joint tenderness, deformity or swelling, no muscular tenderness noted, full range of motion without pain Neuro: Expressive greater than receptive aphasia affect: Sleepy Motor: Strength no clear focal weakness, although there may be some relative right lower extremity weakness. Tone normal Reflexes: trace Sensation: No extinction no clear focal sensory loss Cerebellar: no tremors Labs: I have personally reviewed CBC: Lab Results Component Value Date WBC 6.43 03/02/2020 RBC 4.10 03/02/2020 HGB 13.2 03/02/2020 HCT 39.6 03/02/2020 MCV 97 03/02/2020 MCH 32.2 03/02/2020 MCHC 33.3 03/02/2020 PLT 462 (H) 03/02/2020 NEUTROABS 5.03 02/14/2020 BMP: Lab Results Component Value Date NA 134 (L) 03/07/2020 K 5.1 (H) 03/07/2020 CL 102 03/07/2020 CO2 24 03/07/2020 BUN 26 03/07/2020 CREATININE 0.57 03/07/2020 CALCIUM 8.8 02/14/2020 MG 1.7 03/02/2020 PHOS 4.6 (H) 03/07/2020 LABALBU 3.9 05/07/2001 Assessment/Problems: (update problem list daily as appropriate) Patient Active Problem List Diagnosis Date Noted ??? *(H)Left-sided nontraumatic intracerebral hemorrhage ([facility]) 03/02/2020 Priority: Medium Status post decompressive hemicraniectomy ??? Brain herniation ([facility]) 02/17/2020 Priority: Medium ??? Cerebral edema ([facility]) 02/17/2020 Priority: Medium ??? 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 (H)Cerebral venous thrombosis 02/14/2020 Priority: Medium ??? Encounter for insertion or removal of intrauterine contraceptive device 02/12/2020 Priority: Medium ??? Nicotine dependence, unspecified, uncomplicated 02/12/2020 Priority: Medium ??? Perimenopausal 02/12/2020 Priority: Medium ??? Post concussion syndrome 02/12/2020 Priority: Medium ??? Tobacco abuse 12/02/2012 Priority: Medium ??? Chronic low back pain 10/13/2012 Priority: Medium ??? Back pain 09/25/2012 Priority: Medium Plan: 1. Left frontal intraparenchymal hemorrhage: Status post decompressive craniectomy. Patient with residual mild right-sided weakness, significant expressive and receptive aphasia, dysphagia. Full PT, OT, ANESTHESIOLOGY PHYSICIAN ASSISTANT to address mobility, self care communication and swallowing function. 24 hour rehab nursing for self care deficits. Helmet on when out of bed. Diet advanced to regular consistency. 2. 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 Evidence of left IJ, sigmoid and transverse sinuses as well. Now on therapeutic dose Lovenox. Continued follow-up with hematology and thrombosis clinic in 2-4 weeks from inpatient rehabilitation admission. Low molecular weight heparin level obtained and was subtherapeutic with Lovenox adjusted to 80 mg every 12 hours. Level is therapeutic. 3. Right upper lobe pulmonary embolism, left upper extremity DVT: Now on therapeutic dose Lovenox. ?? 4. History of anxiety/depression: Monitor clinically. Currently on Seroquel at at bedtime. Considermedical psychology consultation as language deficits allow. She has listed allergies to citalopram and duloxetine. 5. Nutrition: PEG tube placed 02/18/2020. Currently diet advanced to regular consistency. Jaden Rutherford MD 03/11/2020 12:01 * Oliva Martinez MS [facility]-ANESTHESIOLOGY PHYSICIAN ASSISTANT - 03/11/2020 0851 EDT Speech-Language Pathology Daily and Current Progress Note ANESTHESIOLOGY PHYSICIAN ASSISTANT Diagnosis: Aphasia and oropharyngeal phase dysphagia Medical Diagnosis: Cerebral venous thrombosis and resultant intraparenchymal hemorrhage in the leftfrontotemporal area Date of Onset: 02/14/20 Date of Referral: 03/02/20 Subjective/Objective SUBJECTIVE: 1st session: I don't know who I am and I get confused. Patient attempted to describe left-side neglect to patient utilizing gestures and jargon. 2nd session: *Right now I'm getting a little halibut. Yesterday I was trying so hard to get them right and today I just want to know what they were. Andtoday I got them right. I don't know how I got them right, but that's okay. OBJECTIVE: Date of Service: 03/11/2020 First Session: Start Time: 1000 Total Therapy minutes: 30 minute(s) comm-cog tx Second Session: Start Time: 1330 Total Therapy minutes: 30 minute(s): comm-cog tx Current Treatment Objectives: Auditory Comprehension: Goal #1: Patient will identify objects in a visual field of 2-3 with >70% accuracy provided moderate cues for attention and information processing. 03/07: After initially reviewing names of items in f-3, patient selected target object in response to verbally presented object name with the following accuacy: Items Unlabeled (57%) Labels Added (83%) Labels Removed (75%) 1. 9 1. 9 1. 9 2. 9 2. 9 2. 9 3. 6/8 3. 9 3. 8 4. 9 4. 6/8 4. 9 5. 6/8 5. 9 6. 6/8 6. 9 7. 9 03/08: Session 1- Patient identifies objects in a visual field of 2 with 90% accuracy provided written word and auditory presentation of the word. Patient identifies objects in a visual field of 3 with 80% accuracy provided written word and auditory presentation of the word. Patient required repetition of each item for field of 3. 03/09: Session 1- Patient identifies objects in a visual field of 3 with 80% accuracy provided written word and auditory presentation of the word. Patient required repetition of each item for field of3. Patient identifies objects in a visual field of 4 with 80% accuracy provided written word and auditory presentation of the word. Patient required repetition of each item for field of 4. She required verbal encouragement to trust her gut during field of 4 as she was often hesitant to make a selection. 03/10: Session 1- Patient identifies objects in a visual field of 3 with 80% accuracy provided written word and auditory presentation of the word. Patient required repetition of each item for field of3. Patient identifies objects in a visual field of 4 with 80% accuracy provided written word and auditory presentation of the word. Patient required repetition of each item for field of 4. 03/11: Session 2- Patient identifies objects in a visual field of 4 with 100% accuracy provided written word and auditory presentation of the word. Patient identifies objects in a visual field of 6 with 80% accuracy provided written word and auditory presentation of the word. Patient requires significant repetition of each item provided field of 6 and encouragement as she was hesitant to answer frequently stating that it made her nervous to have more than 4 items to choose from. Goal #2: Patient will answer simple yes/no questions immediately after review with >70% accuracyprovided moderate cues for attention and initiation. 03/07: Session 1: Patient responded to Y/N questions with jargon and some intelligible word related to questions (e.g., It was my father's name in response to Is your last name 'Cindy?'). 03/08: Session 1- Patient responds to simple Y/N questions with 30% accuracy. Errorless learning wasattempted with mixed success. 1. 6- Error: Inaccurate attempt at the task item 2. 6- Error: Inaccurate attempt at the task item 3. 6- Error: Inaccurate attempt at the task item 4. 9- Repeated: Accurate, after instructions are repeated (errorless learning utilized) 5. 6- Error: Inaccurate attempt at the task item (errorless learning attempted) 6. 9- Repeated: Accurate, after instructions are repeated (errorless learning utilized) 7. 6- Error: Inaccurate attempt at the task item (errorless learning attempted) 8. 6- Error: Inaccurate attempt at the task item (errorless learning attempted) 9. 9- Repeated: Accurate, after instructions are repeated (errorless learning utilized) 10. 6- Error: Inaccurate attempt at the task item 03/09: Session 1- Patient responds to simple Y/N questions with 60% accuracy. Today patient benefitsfrom written yes/no board and gestures for prompting. 1. 6- Error: Inaccurate attempt at the task item; 9- repeated 2. 9- Repeated: Accurate, after instructions are repeated 3. 15- Complete: accurate, responsive, complete, prompt, efficient 4. 6- Error: Inaccurate attempt at the task item 5. 13- Complete-delayed: Accurate, responsive, complete or complex, delayed 6. 15- Complete: accurate, responsive, complete, prompt, efficient 7. 13- Complete-delayed: Accurate, responsive, complete or complex, delayed 8. 13- Complete-delayed: Accurate, responsive, complete or complex, delayed 9. 13- Complete-delayed: Accurate, responsive, complete or complex, delayed 10. 6- Error: Inaccurate attempt at the task item /16: Session 1- Patient responds to simple Y/N questions with 20% accuracy. Today patient benefitsfrom written yes/no board and gestures for prompting. 1. 6- Error: Inaccurate attempt at the task item 2. 6- Error: Inaccurate attempt at the task item 3. 8- Cued: Accurate, after cue is given 4. 15- Complete: accurate, responsive, complete, prompt, efficient 5. 6- Error: Inaccurate attempt at the task item 6. 6- Error: Inaccurate attempt at the task item 7. 6- Error: Inaccurate attempt at the task item 8. 15- Complete: accurate, responsive, complete, prompt, efficient 9. 6- Error: Inaccurate attempt at the task item 10. 6- Error: Inaccurate attempt at the task item 4/17: Session 1- Patient responds to simple Y/N questions with 50% accuracy. Today patient benefitsfrom written yes/no board and gestures for prompting. 1. 9- Repeated: Accurate, after instructions are repeated 2. 15- Complete: accurate, responsive, complete, prompt, efficient 3. 15- Complete: accurate, responsive, complete, prompt, efficient 4. 6- Error: Inaccurate attempt at the task item 5. 8- Cued: Accurate, after cue is given 6. 6- Error: Inaccurate attempt at the task item 7. 6- Error: Inaccurate attempt at the task item 8. 15- Complete: accurate, responsive, complete, prompt, efficient 9. 6- Error: Inaccurate attempt at the task item 10. 15- Complete: accurate, responsive, complete, prompt, efficient Goal #3: Patient will follow simple 1-step commands related to functional environment with >70% accuracy provided moderate verbal/tactile/visual cues in order to increase functional integration into environment. 03/09: Session 2- Patient follows simple 1-step commands related to environment with 0% accuracy independently. Accuracy increases to 90% accuracy following a model by the clinician with slowed auditory presentation of directions. 03/10: Session 1- Patient follows simple 1-step commands related to environment with 0% accuracy independently. Accuracy increases to 90% accuracy following a model by the clinician with slowed auditory presentation of directions. Expressive Language: Goal #1: Patient will recite automatic speech tasks given moderate cues with >70% accuracy. 03/08: Session 1- Patient recites automatic speech tasks with the clinician. See results below: 1-10: 100% accuracy following a model The Alphabet: Unable to perform in unison Months of the Years: Attempted to have patient repeat each month after the clinician: November, December, (jargon), (jargon), , June, April medication, June compation, sincation medication,seegus, French, lessonagus Musa, Decemegas 03/09: Session 1- Patient recites automatic speech tasks with the clinician. See results below: 1-10: 100% accuracy following a starter cue one... The Alphabet: T1: A, me, S, d, 8, q, A, me, d, ec, q, g, h, eed, h ; T2: Patient was able to achieve 50% in unison with the clinician but eventually perseverated on w Days of the Week: Patient perseverated on w, k despite max cues, models, and attempts to perform in unison Session 2- Patient recites automatic speech tasks with the clinician. See results below: 1-10: 80% accuracy following a repetition of the instructions; 80% accuracy in trial 2 following a repetition of the instructions. The Alphabet: A, 7 you mean? following max cues and models Days of the Week: Patient perseverated on w, k despite max cues, models, and attempts to perform in unison 03/10: Session 1- Patient recites automatic speech tasks with the clinician. See results below: 1-10: 100% accuracy The Alphabet: a, q, q, jews, each, l, l, elf Days of the Week: w, q, w, q, w, q, l, q, l, q Goal #2: Patient will name objects (real or pictured) to confrontation with >70% accuracy provided moderate verbal cues. 03/08: Session 1- Patient names real pictured objects to confrontation in 4 out of 29 trials provided errorless learning and maximum cues from the clinician. 03/09: Session 2- Patient names real pictured objects to confrontation with 10% accuracy today. 03/10: Session 1- Patient names real pictured objects to confrontation with 0% accuracy. that's a nice pretty outfit (house) argenips... Something you eat. (grapes) Lissessis... Communities (shoes) subins (wrestle) sunspickum (vacuum) stomach (tongue) maskick... Stomach (moreno) Jurgenarsesis (brain) she's here (nurse) stomach (popcorn) Session 2- Patient names real pictured objects to confrontation with 0% accuracy. stomach (watch) sillicus (eye) lillicarpus (zipper) firekin (shark) jargon (shirt) jargon (spoon) stugish sodagis (shoes) stymish (chair) david (cow) jargon (baby) mamus (barn) stomach (bat) stomach talks (lips) 03/11: Session 1- Patient names real pictured objects to confrontation with 0% accuracy. Target Response 1. socks Stomach remus 2. chair Stomach 3. finger Stomach mesar mesizen 4. baby Stomach lady 5. helmet stomach 6. Earth liden stomach minizes 7. mandaen Stomach I'm really confused with that 8. pepper [employer] 9. shorts Stomach misters 10. sink Magic stomach medicine, damn I know what this one is Goal #3: Patient will repeat 1-2 syllable functional words with >70% accuracy provided a visual model by the clinician. 03/09: Session 2- Patient repeats 1-2 syllable functional words with 10% accuracy provided a visual model by the clinician. For 60% of trials patient produced neologisms and for 30% of trials patient produced phonemic paraphasias. See results below: 2. 6- Error: Inaccurate attempt at the task item; neologism 3. 6- Error: Inaccurate attempt at the task item; neologism 4. 15- Complete: accurate, responsive, complete, prompt, efficient 5. 14- Distorted: accurate, responsive, complete or complex, prompt, distorted; phonemic paraphasia 6. 6- Error: Inaccurate attempt at the task item; neologism 7. 6- Error: Inaccurate attempt at the task item; neologism 8. 14- Distorted: accurate, responsive, complete or complex, prompt, distorted; phonemic paraphasia 9. 14- Distorted: accurate, responsive, complete or complex, prompt, distorted; phonemic paraphasia 10. 6- Error: Inaccurate attempt at the task item; neologism 03/10: Session 1- Patient repeats 1-2 syllable functional words with 30% accuracy provided a visual model by the clinician. For 70% of trials patient produced neologisms. See results below: 1. 8- Cued: Accurate, after cue is given; neologism for first few trials; required tactile and visual cues 2. 15- Complete: accurate, responsive, complete, prompt, efficient 3. 6- Error: Inaccurate attempt at the task item; neologism 4. 6- Error: Inaccurate attempt at the task item; neologism 5. 15- Complete: accurate, responsive, complete, prompt, efficient 6. 15- Complete: accurate, responsive, complete, prompt, efficient 7. 6- Error: Inaccurate attempt at the task item; neologism 8. 6- Error: Inaccurate attempt at the task item; neologism 9. 6- Error: Inaccurate attempt at the task item; neologism 10. 6- Error: Inaccurate attempt at the task item; neologism Session 2- Patient repeats 1-2 syllable functional words with 30% accuracy provided a visual model by the clinician. For 70% of trials patient produced neologisms. 03/11: Session 1- Patient repeats 1-2 syllable functional words with 0% accuracy provided a visual model by the clinician. See results below: Target Response 1. socks stomach 2. chair Stomach mesausen 3. finger megas megasarus 4. baby Lady mesasus 5. helmet helmamarier 6. Earth siroath 7. mandaen churchtons 8. pepper lymins 9. shorts short hundreds 10. sink [place]; sank; sank Reading Comprehension: Goal #1: The patient will identify the written word in a field of 2, given an auditory model with 80% accuracy. 03/11: Session 2- Patient identifies written words in a field of 2, given an auditory model with 81%accuracy. Goal #2: The patient will identify the written word to match a given object or picture with 80% accuracy in a field of 3 (presented in a vertical orientation). Written Expression: Goal #1: The patient will write functional words and short phrases related to personal information (e.g., name, address, date of ) with 90% accuracy given mod verbal/visual cues. 03/09: Session 2- Patient writes functional words and short phrases related to personal information.See results below: Name: 100% accuracy Address: Patient does not provide street number, street name, or apartment number. She did write inapartment number once clinician wrote in the street number and street name. She got 100% accuracy for city and state. Phone Number: 100% accuracy Occupation: Unable to complete. PATIENT/FAMILY EDUCATION: Patient/Family Education: Patient/family education was provided today including: rehab goals and questions were addressed. Topic: Patient/Family education and training was completed today including: the role of Speech-Language Pathology aphasia dysphagia questions were addressed. Learner: patient Method of Education: Verbal Barriers to Learning/Education: patient's level of arousal, fatigue, and presence of language impairment Patient: needs further instruction and education Family: No family present. Patient/Family Goals: Patient states I want to get better. Team Communication: Discussed possibility of HLTBI program with rehab team ?? Assessment /CLINICAL IMPRESSIONS: Ynes White is a female 50 y.o. 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 During patient's first session today, Ynes demonstrates continued difficulty with repetition and confrontational naming, utilizing neologisms andperseverations. Auditory comprehension for yes/no questions and sentence level material remains significantly impaired, although comprehension of yes/no questions appears to be improving steadily. Yes/no board and gestures appeared effective today.Today during her second session, Ynes demonstrates improved auditory comprehension of pictured objects from a field of 4 when provided with a written word and auditory presentation. Difficulty is increased by having Ynes identify objects from a field of 6. She is very hesitant to provide answers when presented with a field of 6 options, stating frequently that it makes her nervous but often chose the correct answer when provided verbal prompting and encouragement. Ynes also demonstrates improvements in identifying written words from afield of 2 today when presented with an auditory model and an associated picture. Ynes remains appropriate for 30 min BID sessions for aphasia intervention based on her level of arousal, fatigue, and engagement. Ynes White also currently presents with severe expressive and receptive aphasia, most consistent with Wernicke's type but with some deviation from typical Wernicke's type presentation. Patient appears to be able to follow some basic 1-step commands effectively provided context, models, slow auditory presentation of information, and tactile cues as needed. Repetition, object naming, word fluency, sentence completion, and responsive speech are all impaired. Ynes demonstrates a favorable response to use of gestures to assist with her auditory comprehension. Expressive language is characterized as fluent but mostly consists of word salad with many instances of jargon, neologisms, andparaphasias with occasional moments of intelligible discourse scattered throughout. Ynes's discourse could also be described as tangential and perseverative. She attempts to utilize gestures to augment her expressive language, but is not always successful. She is also demonstrating breakdowns in reading comprehension at the short sentence level and significant deficits in written expression atthe word level, compounded by impaired auditory comprehension preventing writing to dictation and impaired naming preventing written naming. These deficits impact the patient's ability to functionally communicate her wants, needs, and ideas and hold conversation. She presents with severe impairments in reading comprehension, however, she demonstrates some success with reading comprehension at theword level, which appears to be a relative strength compared to her auditory comprehension. She exhibits significant breakdown in reading comprehension at the short sentence level. Ynes also demonstrates significant deficits in written expression at the single word level. She demonstrates relative strength in copying words and sentences, as well as writing numbers. ? Patient has demonstrated good gains in swallow function since admission to inpatient rehabilitation. Patient currently presents with adequate oral containment; slow, but complete oral management and mastication, and adequate transport with trials of regular textures. She exhibits improved bolus roxane pulation and swallowed response compared to previous sessions. No overt signs and symptoms of penetration/aspiration noted. As such, she demonstrates readiness for advancement to regular diet with thin liquids with distant supervision, small bites/sips, and low stimulation evironment at mealtimes. P atient is at low risk of aspiration at this time. Anticipate patient will tolerate upgrade to regular textures. Do not anticipate further need for dysphagia management at this time. Based on evaluation to date, it has been determined that the patient demonstrates deficits that impact functioning in daily activities and hinder participation in life situations.??Patient currently requires assistance from others to communicate basic wants and needs and direct her medical care. Ptwill continue to benefit from her needs being anticipated and simplified information presented to her. Information should be repeated and said in different ways, and augmented with pictures and gestures. The patient is demonstrating strengths in motivation and some intact basic expressive language skills which should be utilized during the patient's plan of care to maximize gains. Contextual factors that may impact the patient's ability to progress toward rehab goals include: severity of language impairment, need for physical assistance, tolerance level for therapy, and pain. Based on patient's tolerance level, it is recommended that patient participate in 30 minute BID sessions initially and build toward 60 minute sessions as tolerated. Given patient's age, independence prior to admission, and social/occupational demands, she would benefit from intensive ANESTHESIOLOGY PHYSICIAN ASSISTANT intervention. Based on the patient's rehab potential, motivation, prior level of function, and the contextual factors, the patient's prognosis is considered good. It is anticip ated that the patient will make functional gains in expressive and receptive language skills with intensive skilled 1:1 speech language pathology services in the inpatient rehabilitation setting. Functional Communication Measures ([place] [employer], 2002). The Functional Communication Measures (FCM???s) are a series of 7 point rating scales, ranging fromleast functional (Level 1) to most functional (Level 7). They have been developed by [employer] to describe different aspects of patient???s functional communication and swallowing abilities over the course of ANESTHESIOLOGY PHYSICIAN ASSISTANT intervention. ?? Spoken Language Comprehension Level 2: With consistent, maximal cues, the individual is able to follow simple directions, respond to simple yes/no questions in context, and respond to simple words orphrases related to personal needs. Spoken Language Expression Level 3: The communication partner must assume responsibility for structuring the communication exchange, and with consistent and moderate cueing, the individual can produce words and phrases that are appropriate and meaningful in context. Reading Level 3: The individual reads single letters and common words, and with consistent moderatecueing, can read some words that are less familiar, longer, and more complex. Writing Level 2: The individual writes single letters and common words with consistent maximal cueing. ?? Swallowing Level 6: Swallowing is safe, and the individual east and drinks independently and may rarely require minimal cueing. The individual usually self-cues when difficulty occurs. May need to avoid specific food items (e.g., popcorn and nuts), or require additional time (due to dysphagia). ?? GOALS: Snf Goals: Projected Functional Communication Measures at discharge: Spoken Language Comprehension Level 4: Individual consistently responds accurately to simple yes/noquestions and occasionally follows simple directions without cues. Moderate contextual support is usually needed to understand complex sentences/messages. The individual is able to understand limited conversations about routine daily activities with familiar communication partners. Spoken Language Expression Level 4: The individual is successfully able to initiate communication using spoken language in simple, structured conversations in routine daily activities with familiar communication partners. The individual usually requires moderate cueing, but is able to demonstrate use of simple sentences (i.e., semantics, syntax, and morphology) and rarely uses complex sentences/messages. Reading Level 4: The individual reads words and phrases related to routine daily activities, and words that are less familiar, longer, and more complex. The individual usually requires moderate cueing to read sentences of approximately 5-7 words. Writing Level 3: The individual writes single letters and common words, and with consistent moderate cueing, can write some words that are less familiar, longer, and more complex. Short Term Goals: Auditory Comprehension: Goal #1: Patient will identify objects in a visual field of 2-3 with >70% accuracy provided moderate cues for attention and information processing. Goal #2: Patient will answer simple yes/no questions immediately after review with >70% accuracyprovided moderate cues for attention and initiation. Goal #3: Patient will follow simple 1-step commands related to functional environment with >70% accuracy provided moderate verbal/tactile/visual cues in order to increase functional integration into environment. ?? Expressive Language: Goal #1: Patient will recite automatic speech tasks given moderate cues with >70% accuracy. Goal #2: Patient will name objects (real or pictured) to confrontation with >70% accuracy provided moderate verbal cues. Goal #3: Patient will repeat 1-2 syllable functional words with >70% accuracy provided a visual model by the clinician. ?? Reading Comprehension: Goal #1: The patient will identify the written word in a field of 2, given an auditory model with 80% accuracy. Goal #2: The patient will identify the written word to match a given object or picture with 80% accuracy in a field of 3 (presented in a vertical orientation). Written Expression: Goal #1: The patient will write functional words and short phrases related to personal information (e.g., name, address, date of ) with 90% accuracy given mod verbal/visual cues. ?? Plan RECOMMENDATIONS: Patient will continue to benefit for further ANESTHESIOLOGY PHYSICIAN ASSISTANT intervention in this setting to address dysphagia and aphasia management and intervention needs. ?? Recommend inpatient rehabilitation ANESTHESIOLOGY PHYSICIAN ASSISTANT services: Patient will be seen for a minimum of 5x/week @ 30minutes BID due to current tolerance level. Swallowing Recommendations: Diet: Regular Liquids: IDDSI Level 0- Thin Medications: Medication should be administered crushed with pureed foods or whole with thin liquidsif pt prefers. ?? Precautions: ?? distant supervision at meal times to ensure compliance with strategies. ?? small bites/sips ?? 1 bite at a time ?? complete oral care following each meal ?? Patient needs assist with set up of meals. ?? Patient should eat in a low stimulation environment to increase attention to meal time. ?? When eating, patient should be upright??at 90??degrees as tolerated. ?? Patient may??use a straw when drinking liquids. ?? Oral Care Precautions: Individuals with dysphagia are at increased risk for aspiration. Aspiration occurs when food, liquid, or saliva travels down the airway (to the lungs) instead of down the esophagus (to the stomach). Aspiration can have very serious consequences, including aspiration pneumonia. The mouth contains bacteria that can be dangerous if it enters the lungs and can increase risk of development of aspiration pneumonia. Therefore, it is very important for individuals with dysphagia to follow strict oral care guidelines to reduce the risk of aspirating dangerous oral bacteria. ? Remove any visible debris (pieces of leftover food, etc.) before brushing teeth. ?? Bonanza teeth thoroughly before and after ALL intake (meals, snacks, etc.). ?? [place] tongue from back to front. ?? Bonanza the roof of your mouth and cheek pockets. ?? Clean mouth thoroughly each morning and at bedtime. ?? Rinse mouth with water after brushing teeth. ?? Floss teeth daily. ?? Mouth wash is NOT a substitute for brushing teeth. ?? Communication Access and Shared Decision Making Recommendations Please support communication access and shared decision making ability by doing the following: ?? Support Comprehension: ?? Have a pen and paper ready when communicating. ?? Please present information slowly and simplify. Augment with drawings, diagrams, gestures and pointing. ?? Ask one question at a time. ?? Have only one person speak at a time. ?? Environmental modifications:? Simplify the environment: ?? Carryover/Discharge??and Healthcare Decision making considerations ?? Will need family support for the successful carryover of discharge recommendations. ?? Currently comprehension of non-contextual information is a barrier Oliva Martinez MS CCC-ANESTHESIOLOGY PHYSICIAN ASSISTANT 03/11/2020 16:29 * Isamar Angel - 03/11/2020 0851 EDT ED notes FMLA forms for pt's sister Hola completed by and faxed to her employer. Isamar Downs RN CM * Eliza Douglas, OT - 03/11/2020 0744 EDT [facility] Rehabilitation Therapy Inpatient Rehabilitation [facility] Occupational Therapy Encounter Note Date of Service: 03/11/2020 SUBJECTIVE: Im not right Pt had episode of not feeling well during OT session OBJECTIVE: Start time: 0930 Treatment time: 30 Scheduled time: 30 Total Therapy Minutes: 30 minute(s) Interventions included: Self-Care/Home Management: 30 min Helmet on for entire session: Pt initiated deficits in her vision. Continues to identify that she is seeing double. Pt seen for ambulatory ADL. Cues for OT to clarify expectations. Ambulated to the closet, retrieved clothing with contact guard assist. Sat at sink for bathing/grooming: Bathing: Cues to problem-solve using pump soap Sponge bathed entire body with supervision Dressing: Supervision to doff and don shirt Supervision to doff pants Mod assist to don Skirt as pt was not feeling well. NOTE: Part way through dressing, pt indicated she was not feeling well. She became hot, nauseas andnot feeling well. Nursing was contacted, vitals were obtained - bp was a little low (nursing documented). Pt was evaluated and with extended rest, pt improved to Ambulate to the bed. OBJECTIVE: Start time: 1400 Treatment time: 30 Scheduled time: 30 Total Therapy Minutes: 30 minute(s) Interventions included: Self care: 15 min Bathroom: Pt ambulated to the bathroom with min contact assist. Completed toileting task with distant supervision. Independently initiated washing her hands. Ambulated to the gym with min contact assist. Neuromusc. Андрей: 15 min Completed letter cancellation task: She indicated some right visual field cut in that she had to turn her head to see some letters. P F letter cancellation with 100% accuracy in 1 min 53 sec. Vital signs: Vital signs were monitored with nursing - see their documentation. Team Communication: Nursing and PT. Informed PT the pt might be likely having diplopia. ASSESSMENT: Pt has been noticing improvement and is pleased when she does a good job. She was awarethat she was not feeling right a few times today, but with rest, it did pass. Vision: With her diplopia it appears she also has some right field cut, but independently is movingher head to compensate. PLAN: Continue OT Ambulatory ADL Phone use Pager: [phone] Eliza Douglas OT, 03/11/2020, 7:44 * Milli Singh, PT - 03/11/2020 [id number] EDT [facility] Rehabilitation Therapy Inpatient Rehabilitation Center [facility] Physical Therapy Progress Note Date of Service: 03/11/2020 Precautions: Mobility Precautions Activity: Level of risk of Harm B, Activity as tolerated Miscellaneous Precautions/Restrictions Additional Precautions Information: L Bone flap precautions (helmet OOB), PEG tube Subjective/Objective Subjective Oh hi! How are you today? Pt indicates that she can tell that her walking is not normal. Objective Intervention Completed Today: Start time: 1030 Total Therapy Minutes: 30 minute(s) Interventions included: Gait Training: Gait Speed (meters/second)^ 0.48 meters/sec. This test assesses walking speed over an established distance. Age/gender normative values (Kirsten, 2011) Age Gender 95% CI meters/second 20-29 Male 1.21-1.47 20-29 Female 1.08-1.49 30-39 Male 1.31-1.53 30-39 Female 1.25-1.41 40-49 Male 1.27-1.47 40-49 Female 1.22-1.42 50-59 Male 1.12-1.49 50-59 Female 1.10-1.55 60-69 Male 1.03-1.59 60-69 Female 0.97-1.45 70-79 Male 0.95-1.41 70-79 Female 0.83-1.50 80-89 Male 0.61-1.22 80-89 Female 0.56-1.17 Walking categories by gait speed (Rehan, 1995) Category Gait speed meters/second Physiologic 0.10 Limited household 0.23 Unlimited household 0.27 Most limited community 0.40 Least limited community 0.58 Community 0.80 The minimal detectable change (MDC-95%) for patients undergoing inpatient rehabilitation after an acute stroke is 0.13 meters/second. (Charlene, 2012) The minimal detectable change (MDC-95%) for patients with chronic stroke is - 0.15 to 0.25 meters/second. (Nichol, 2005) The minimal clinically important difference (MCID) for patients undergoing inpatient rehabilitationafter an acute stroke is 0.13 meters/second using walking categories as the anchor. (Kirsten, 2013) The minimal clinically important difference (MCID) for patients 2 to 5 months post stroke is 0.17 meters/second. (Iglesia 2011) Six Minute Walk Test^ (meters) 106.07 meters. This test assesses distance walked over 6 minutes as a sub-maximal test of aerobic capacity/endurance. Completed with no device today. At last assessment pt completed with RW. Age/gender normative values (Mims, 2001) Age Gender Range for age norms 2 standard deviations around the mean (meters) Range for age norms 2 standard deviations around the mean (feet) 20-40 Male [phone] Female [phone] 41-60 Male [phone] Female [phone] (Kirsten, 2007) Age Gender 95% CI (meters) 95% CI (feet) 60-69 Male [phone] Female [phone] 70-79 Male [phone] Female [phone] 80-89 Male [phone] Female [phone] The minimal detectable change (MDC) for patients with acute stroke is 54 meters or 177 feet. (Iglesia,2008) The minimal detectable change (MDC) for patients with chronic stroke is 36.6 meters or 120 feet or 13% improved from baseline measure. (Nichol, 2005) 2nd Session Time: Start time: 1130 Total Therapy Minutes: 30 minutes Interventions completed today: Vital Signs: Post BP=92/64 HR=99 Spo2=97% Therapeutic activities: Supine<>sit mod I, sit<>stand from EOB with supervision x 1 and assist to don/doff helmet. 5 Times Sit to Stand Test^: 30 seconds. This test is a measure of functional lower limb muscle strength that may also be useful in quantifying functional change of transitional movements. Age normative values (Kirsten, 2007) Age Range for age norms 2 standard deviations around the mean (seconds) 19-49 3.6 - 8.8 50-59 4.1 - 10.1 60-69 1.9 - 14.3 70-79 3.8 - 16.2 80-89 3.8 - 17.4 Neuromuscular re-education: Dynamic balance working on anticipatory and reactive postural control, incorporated into walking activities: Obstacle course with long airex pad, and four 6 hurdles completed x 4 laps. Pt demonstrates improved stability in stance on LLE with min contact A x 1 required while completing hurdles leading with R. Pt had an episode of dizziness after this activity which resolved with a sitting rest break. After returning to pt's room vitals were as above with hypotension noted. Pt encouraged to continue to drunk fluids while in bed. Pt resting comfortably at end of session with needs met and call miranda in place. Patient/Family Education: Topic: Improvements in gait speed, increased ability to ambulate without UE support Learner: patient Method: verbal Barriers to Learning: cognitive deficits and language/aphasia Outcome: requires assist and needs practice Team Communication: With OT regarding pt having had a similar episode of dizziness during her session this AM. RN and MD aware. Relevant Objective Findings: AROUSAL, ATTENTION, AND COGNITION: Improved arousal as compared to eval however pt still lays down to sleep between therapy sessions and intermittently requires seated rest breaks with eyes closed during sessions. Oriented to person. Difficult to assess further due to expressive aphasia. Defer to OT/ANESTHESIOLOGY PHYSICIAN ASSISTANT for details. CARDIOPULMONARY: 6 Min Walk - Distance (m): 106.07 meters See vitals documented above. INTEGUMENTARY/ANTHROPOMETRIC CHARACTERISTICS: Craniectomy incision on L Lateral scalp, open to air, C/D/I. ghassan have been removed. PEG tube in abdomen. Head to toe not visualized as pt was fully clothed, defer to RN/MD notes for details. RANGE OF MOTION AND JOINT INTEGRITY: At eval: Active Range of Motion: Within normal limits except as noted Upper Quarter: Assessed functionally due to pt difficulty with instructions. Left Upper Extremity: functionally appears WNL Right Upper Extremity: functionally appears WNL Cervical Spine: looks about room with no apparent deficit ?? Lower Quarter: Left Lower Extremity: knee and ankle functionally WNL, unable to flex hip against gravity (using hands to assist, though difficult to assess if this is true weakness or difficulty understanding instructions) Right Lower Extremity: knee and ankle functionally WNL, unable to flex hip against gravity (using hands to assist, though difficult to assess if this is true weakness or difficulty understanding instructions) Lumbar Spine: NE, not a priority at this time MUSCLE PERFORMANCE: 5-Time Bse-cn-Rkksb (sec): 30 At eval: Strength: assessed functionally in sitting, pt with difficulty following instructions for formal MMT Upper Quarter: defer to OT for details Left Upper Extremity: >3/5 grossly Right Upper Extremity: >3/5 grossly Cervical Spine: NE ?? Lower Quarter: Left Lower Extremity: hip flexion <3/5, quads >3+/5, DF=5/5 Right Lower Extremity: hip flexion <3/5, quads >3+/5, DF=5/5 LumbarSpine: NE SENSATION, REFLEXES, AND NERVE INTEGRITY: Light Touch Sensation: Upper Quarter: unable to formally assess due to expressive and receptive aphasia and cog deficits Lower Quarter: unable to formally assess due to expressive and receptive aphasia and cog deficits, responds to light touch on feet and lower legs by opening eyes, NEUROMOTOR FUNCTION/DEVELOPMENT: Motor control: appears able to isolate movements at all joints functionally. Movement patterns: antalgic gait, hesitant movement at times Coordination: no ataxia noted, unable to assess finger to nose, heel to torre due to difficulty withinstructions Speech/Communication/Oral motor control: expressive aphasia, speech occasionally unintelligible, speech unrelated to topic of conversation at times BALANCE, MOBILITY, AND GAIT: Gait Speed - Distance (M): 10 Gait Speed - Time (sec): 21 Gait Speed - Velocity (meters/sec): 0.48 meters/sec Balance: Sitting Balance Static: supervision x 1 Dynamic: supervision x 1 Standing balance Static: min contact A x 1 without UE support Dynamic: min contact A x 1 to reach outside KATHRYN Mobility: Bed Mobility: Sit->supine: independently with flat bed and no rails. Supine- >sit: independently with flat bed and no rails. Transfers: Bed < > Chair: stand-step with supervison, cues and assistance of 1 Wheelchair: Not a goal. Gait: The patient ambulates with min contact assist of 1 using no device for 100-300 feet. Gait deviations: increased toe out angle B, decreased stance time on L, occasionally demonstrates antalgic gait (seems to improve over time), decreased foot clearance B, holds arms over stomach (PEG tube site) with upper body very guarded, no reciprocal trunk rotation Stairs: Patient negotiates with min contact assist of 1 up and down 4 stairs with 2 rails. SELF-CARE, HOME MANAGEMENT, WORK, AND LEISURE: Defer to OT for details. OUTCOMES: PT Outcomes 03/04/2020 03/05/2020 03/07/2020 03/08/2020 5-Time Bae-cq-Srrva (sec) 32 6 Min Walk - Distance (m) 18.29 120.7 Escobar Balance Score (n/56) 36 Gait Speed - Distance (M) 3.05 Gait Speed - Time (sec) 14 Gait Speed - Velocity (meters/sec) 0.22 PT Outcomes 03/11/2020 5-Time Uae-gk-Osolr (sec) 30 6 Min Walk - Distance (m) 106.07 Escobar Balance Score (n/56) Gait Speed - Distance (M) 10 Gait Speed - Time (sec) 21 Gait Speed - Velocity (meters/sec) 0.48 Assessment/Plan Assessment The patient continues to be appropriate for skilled physical therapy on acute rehab to address the physical therapy diagnosis of impaired mobility s/p L ICH s/p craniectomy. The patient???s primary impairments include impaired reactive and anticipatory postural control (per Escobar), BLE weakness (per 5x sit to stand), impaired Gait Speed, impaired activity tolerance and decreased endurance (per 6MWT), pain in head, stomach and LLE, reflux and emesis at times, fatigue andintermittent decreased arousal. 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 Pt is making steady gains with therapy in the acute rehab setting. She demonstrates MCID improvement in Gait Speed indicating improved functional mobility, though she is still below age and gender related norms. She had a decrease in her 6MWT score today however this was likely impacted by the fact that she required the use of a RW when this was first assessed, and today she completed the test without an AD. She has been consistently participating in therapy the last 3-4 days demonstrating improvement in activity tolerance as compared to earlier in the week. Pain and fatigue continue to be barriers however pt is doing well with shorter sessions spaced throughout the day with rest breaks in between. It is anticipated that the pt will continue to progress well in the acute rehab setting. Physical Therapy Prognosis: The patient is making good progress toward tentative discharge date of 03/23/20. Expect patient to reach mod I level without an assistive device for household mobility and supervision x 1 for stairs. Barriers to discharge: will need to ensure 24 hour supervision due to cognitive deficits Short-Term Goals: 1 week 1. Pt will demonstrate stand step transfers with supervision x 1 to all sitting surfaces in her room. MET 2. Pt will ambulate 100-150' c supervision x 1 in order to work up to household distance ambulation. IN PROGRESS 3. Pt will tolerate completion of Escobar and 6MWT to establish baseline measures for progress. MET 4. Pt will complete four 6.5 stairs ascending and descending with B rails with min contact A x 1. MET ? Long-Term Goals: 2-3 weeks ALL IN PROGRESS 1. The patient will be able to perform stand step transfer c mod I in order to access all sitting surfaces. 2. The patient will be able to ambulate 100-250' covering household distances c mod I in order to access home environment. 3. The patient will be able to perform HEP independently with handout. 4. Pt will demonstrate stable vital signs with all functional mobility noted above. 5. Pt and family with no further questions regarding diagnosis and POC. 6. Pt will demonstrate MCID improvement in 6MWT indicating improved ambulation endurance. 7. Pt will demonstrate LALO improvement in Escobar Balance Assessment indicating decreased fall risk. Plan Treatment/Intervention: Physical therapy to be provided by physical therapist and/or physical therapist marketing assistant manager as appropriate Frequency: 2 times per day for at least 5 days a week Intensity: 30-60 minutes/session, 90 minutes per day Duration: During rehab admission Interventions may include: Therapeutic exercise, Therapeutic activities, Gait Training and Neuromuscular re-education Further Data: Assess pathfinding Patient/Family Education: caregiver training prior to DC - likely via phone or video chat given visitor restrictions due to COVID-19 Equipment Needs: TBD - possibly cane Discharge Destination: Home with caregiver Discharge Services: Home health physical therapy Other recommendations: None Contact information: Pager: [phone] Milli Singh, PT 03/11/2020 12:55 * Tiffany Cardenas, PT - 03/10/2020 3366 EDT [facility] Physical Therapy Encounter Note Date of Service: 03/10/2020 Subjective/Objective Subjective Pt indicated stomach and leg pain during session. Objective Start time: 1000 Total Therapy Minutes: 30 minute(s) Interventions completed today: Neuromuscular re-education: To facilitate balance: ?? Standing on an airex mat with min contact A x 1, pt selected base of support, 4 x 1-2 minutes. Increased body sway. Cues for upright posture. Gait Training: Ambulation without an AD ~250 feet with min contact A x 1. Deviations included wide base of support, decreased step length and height. Inattention to right side noted and cues required to avoid obstacles. Ambulation with front wheeled walker room to/from gym. Close supervision. Pt able to find path to room. Pt required cues to locate therapy gym. Patient/Family Education: Topic: Plan Learner: patient Method: verbal and demonstration Barriers to Learning: cognitive deficits and language Outcome: verbalized understanding Team Communication: with nurse regarding bed alarm setting Assessment/Plan Assessment Pt participated well despite indicating pain/discomfort. She was able to locate her room at the [facility] therapy, however was unable to follow directions and locate the gym at the start of the session.She required cues to avoid obstacles on her right hand side when ambulating without the walker, however did not reach or grab for anything. Plan Per primary PT Contact information: Tiffany Cardenas, PT 03/10/2020 16:51 * Eliza Douglas, OT - 03/10/2020 1012 EDT REHABILITATION THERAPIES [facility] [address] [place] [id number] Occupational Therapy Encounter Note Date of Service: 03/02/2020 SUBJECTIVE: Pt indicated that she is experiencing double vision. Pain: Pain not rated. Pt indicating intermittent pain towards the front of her head. Session 1 OBJECTIVE: Time: 1030 Total treatment time: 30 minutes Timed code treatment minutes: 30 Interventions included: Therapeutic Activities: 30 Orientation: With calendar pt identified month, day. Adult coloring book: Demonstrated attention to detail, symmetry, planning skills. Cards: Played poker and blackjack with accuracy or card selection and identifying winner without hesitation. Initiated memory task of sorts using 1 word to identify what was done in each treatment session on her schedule. Patient reports finding that very helpful will continue. Session 2 Time: 1:30 Total treatment time: 30 minutes Timed code treatment minutes: 30 Interventions included: Self care: 15 Sequencing cards: Patient presented with 4 photo cards showing different stages of handwashing. With minimal instruction patient was able to review the cards and organize in order. Patient presented with 8 photo cards showing different stages of oral care. Patient accurately organized in order. Greatest difficulty was visual. Using single words to identify what had been done during therapy. Memory task: Updated patient's daily schedule Neuromuscular Re-education: 15 Vision Screen Corrective lenses: Glasses; distance Observations: Eye alignment: difficult to assess. Patient with very brown eyes and had a low tolerance for light today. Head position: Patient has a tendency to adjust her head position to try and improve vision, leaning back and to the right. She will immediately move her head backwards when presented with an item within 3 feet of her face. Oculomotor Control: Range of motion: intact Pursuits: impaired Patient reported increased pain completing this task. And used her hands to demonstrate that her eyes were going in different directions. Pt held up 2 fingers and indicted that she is seeing double. This occurred with both and singles eyes. She indicated that her left eye was better than her right. 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 Pt PLOF enjoyed playing poVega-Chi - today participated quickly, easily and accurately. Session interrupted intermittently by sharp frontal head pain that subsided with 1-2 minutes of rest. Initiated vision screen. Patient indicating double vision that does not improve with 1 eye being occluded. Patient also indicated greatest difficulty was with visual pursuits. Vision was difficult totest as patient with very brown eyes and a lower tolerance for light. PLAN: Continue OT Ambulatory ADL Trans Router/memory book - write on her daily schedule what she did in each session. Letter cancellation Memory book - Schedule with single words to describe session. Cards pipetree coloring book Eliza Douglas OT 03/10/2020 10:19 * Jaden Rutherford MD - 03/10/2020 1006 EDT Physiatry Progress Note Admit Date: 03/02/2020 Hospital Day: LOS: 8 days Date of Service: 03/10/2020 Chief Complaint: Left temporoparietal hemorrhage status post decompressive craniectomy, setting of central venous thrombosis 02/14/2020 Subjective: Remains with expressive and receptive language deficits limiting history. No apparent headache. Improved participation in therapies over the last 24 hours. Current Facility-Administered Medications: acetaminophen (TYLENOL) tablet 650 mg oral Q4H PRN amino acids-protein hydrolysate (PRO SOURCE NOCARB) packet 30 mL feeding tube BID aspirin chewable tablet 81 mg oral DAILY bisacodyL (DULCOLAX) suppository 10 mg rectal Q48H PRN calcium carbonate (TUMS) 200 mg calcium (500 mg) per chewable tablet tablet,chewable 1 Tab oral QIDPRN docusate (COLACE) liquid 100 mg oral BID PRN enoxaparin (LOVENOX) injection 80 mg subcutaneous Q12H guaiFENesin tablet 200 mg oral Q6H PRN HYDROmorphone (DILAUDID) tablet 2-4 mg oral Q4H PRN lisinopriL (PRINIVIL) tablet 20 mg oral DAILY melatonin tablet 3 mg oral QHS metoprolol (LOPRESSOR) tablet 25 mg oral BID multivitamin (FLINTSTONES) chewable tablet 1 Tab oral DAILY nicotine (NICODERM CQ) 7 mg/24 hr patch 1 Patch transdermal Q24H ondansetron (ZOFRAN-ODT) disintegrating tablet 4 mg oral Q4H PRN pantoprazole (PROTONIX) tablet 40 mg oral DAILY papain-alpha amylase-cellulase (CLOG ZAPPER) 2-5 mL feeding tube PRN QUEtiapine (SEROQUEL) tablet 25 mg oral QHS senna (SENOKOT) tablet 1 Tab oral BID PRN Objective/Physical Exam: VS: Patient Vitals for the past 8 hrs: BP Pulse Resp Temp 03/10/20 0647 99/57 90 14 35.7 ??C (96.3 ??F) Pain: Patient Vitals for the past 8 hrs: Numeric Pain Level (Scale 1-10) Asleep 03/10/20 0709 0 Reassessed, sleeping comfortably, RR WNL. 03/10/20 0612 -- Reassessed, sleeping comfortably, RR WNL. 03/10/20 0522 -- Reassessed, sleeping comfortably, RR WNL. 03/10/20 0421 7 -- 03/10/20 0322 -- Reassessed, sleeping comfortably, RR WNL. 03/10/20 0225 -- Reassessed, sleeping comfortably, RR WNL. Weight: Weight : 84.7 kg (186 lb 11.2 oz) Glucose Readings (last 8 readings): No results for input(s): GLUCOSEFINGE in the last 72 hours. I&O: Intake/Output Summary (Last 24 hours) at 03/10/2020 1006 Last data filed at 03/10/2020 0421 Gross per 24 hour Intake 1480 ml Output -- Net 1480 ml Exam: Gen: Alert, pleasant, no distress HEENT: Left decompressive hemicraniectomy site is full with ghassan in place and surgical incision.No clear visual field cut. No facial droop. Pharynx is clear. Neck supple. Mucosal membranes are moist Skin: no rashes Cardiac: Cor RRR Pulmonary: clear to auscultation bilaterally Abdomen: normal bowel sounds, soft, nontender to palpation, PEG tube is intact Musculoskeletal: no joint tenderness, deformity or swelling, no muscular tenderness noted, full range of motion without pain Neuro: Expressive greater than receptive aphasia affect: Sleepy Motor: Strength no clear focal weakness, although there may be some relative right lower extremity weakness. Tone normal Reflexes: trace Sensation: No extinction no clear focal sensory loss Cerebellar: no tremors Labs: I have personally reviewed CBC: Lab Results Component Value Date WBC 6.43 03/02/2020 RBC 4.10 03/02/2020 HGB 13.2 03/02/2020 HCT 39.6 03/02/2020 MCV 97 03/02/2020 MCH 32.2 03/02/2020 MCHC 33.3 03/02/2020 PLT 462 (H) 03/02/2020 NEUTROABS 5.03 02/14/2020 BMP: Lab Results Component Value Date NA 134 (L) 03/07/2020 K 5.1 (H) 03/07/2020 CL 102 03/07/2020 CO2 24 03/07/2020 BUN 26 03/07/2020 CREATININE 0.57 03/07/2020 CALCIUM 8.8 02/14/2020 MG 1.7 03/02/2020 PHOS 4.6 (H) 03/07/2020 LABALBU 3.9 05/07/2001 Assessment/Problems: (update problem list daily as appropriate) Patient Active Problem List Diagnosis Date Noted ??? *(H)Left-sided nontraumatic intracerebral hemorrhage (HCC-CMS) 03/02/2020 Priority: Medium Status post decompressive hemicraniectomy ??? Brain herniation (HCC-CMS) 02/17/2020 Priority: Medium ??? Cerebral edema (HCC-CMS) 02/17/2020 Priority: Medium ??? 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 (H)Cerebral venous thrombosis 02/14/2020 Priority: Medium ??? Encounter for insertion or removal of intrauterine contraceptive device 02/12/2020 Priority: Medium ??? Nicotine dependence, unspecified, uncomplicated 02/12/2020 Priority: Medium ??? Perimenopausal 02/12/2020 Priority: Medium ??? Post concussion syndrome 02/12/2020 Priority: Medium ??? Tobacco abuse 12/02/2012 Priority: Medium ??? Chronic low back pain 10/13/2012 Priority: Medium ??? Back pain 09/25/2012 Priority: Medium Plan: 1. Left frontal intraparenchymal hemorrhage: Status post decompressive craniectomy. Patient with residual mild right-sided weakness, significant expressive and receptive aphasia, dysphagia. Full PT, OT, ANESTHESIOLOGY PHYSICIAN ASSISTANT to address mobility, self care communication and swallowing function. 24 hour rehab nursing for self care deficits. If she remains on the sedated side, will request follow- up CT scan of the head. Helmet on when out of bed. Follow-up CT scan of the head completed today which shows no new intracranial abnormalities and expected evolution of the left temporal hemorrhage with evolving encephalomalacia. Dysphagia level 4 diet with thin liquids. Team meeting is attended today and case discussed with all team members. I spent 35 minutes of floor time, greater than 50% of that time was spent face to face with the patient in counseling and coordination of care and counseling including review of therapy goals and barriers to discharge, recovery, functional progress. 2. 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 Evidence of left IJ, sigmoid and transverse sinuses as well. Now on therapeutic dose Lovenox. Continued follow-up with hematology and thrombosis clinic in 2-4 weeks from inpatient rehabilitation admission. Low molecular weight heparin level obtained and was subtherapeutic with Lovenox adjusted to 80 mg every 12 hours. Plan to recheck level tomorrow. 3. Right upper lobe pulmonary embolism, left upper extremity DVT: Now on therapeutic dose Lovenox. ?? 4. History of anxiety/depression: Monitor clinically. Currently on Seroquel at at bedtime. Considermedical psychology consultation as language deficits allow. She has listed allergies to citalopram and duloxetine. 5. Nutrition: She has either been eating greater than 50% of her meals or refusing tube feeds, and will discontinue Nutren. Fingersticks have been under good control, and monitoring is not required Jaden Rutherford MD 03/10/2020 10:06 * Michelle Oliva, [facility]-ANESTHESIOLOGY PHYSICIAN ASSISTANT - 03/10/2020 0838 EDT Speech-Language Pathology Daily and Current Progress Note ANESTHESIOLOGY PHYSICIAN ASSISTANT Diagnosis: Aphasia and oropharyngeal phase dysphagia Medical Diagnosis: Cerebral venous thrombosis and resultant intraparenchymal hemorrhage in the leftfrontotemporal area Date of Onset: 02/14/20 Date of Referral: 03/02/20 Subjective/Objective SUBJECTIVE: 1st session: It was a rough night. This doesn't usually heat this, this usually heats here. This hurts more. Stomach ache is... I'm just getting a little.... I'm just getting a little... Nothing feels right. Patient perseverates on immigration and stomach during this session. 2nd session: It was really hard, re: being woken and not sleeping during the previous night. OBJECTIVE: Date of Service: 03/10/2020 First Session: Start Time: 1030 Total Therapy minutes: 30 minute(s) comm-cog tx Second Session: Start Time: 1130 Total Therapy minutes: 30 minute(s): 20 minutes swallow tx, 10 minutes c/c tx. Current Treatment Objectives: Auditory Comprehension: Goal #1: Patient will identify objects in a visual field of 2-3 with >70% accuracy provided moderate cues for attention and information processing. 03/07: After initially reviewing names of items in f-3, patient selected target object in response to verbally presented object name with the following accuacy: Items Unlabeled (57%) Labels Added (83%) Labels Removed (75%) 1. 9 1. 9 1. 9 2. 9 2. 9 2. 9 3. 6/8 3. 9 3. 8 4. 9 4. 6/8 4. 9 5. 6/8 5. 9 6. 6/8 6. 9 7. 9 03/08: Session 1- Patient identifies objects in a visual field of 2 with 90% accuracy provided written word and auditory presentation of the word. Patient identifies objects in a visual field of 3 with 80% accuracy provided written word and auditory presentation of the word. Patient required repetition of each item for field of 3. 15: Session 1- Patient identifies objects in a visual field of 3 with 80% accuracy provided written word and auditory presentation of the word. Patient required repetition of each item for field of3. Patient identifies objects in a visual field of 4 with 80% accuracy provided written word and auditory presentation of the word. Patient required repetition of each item for field of 4. She required verbal encouragement to trust her gut during field of 4 as she was often hesitant to make a selection. 03/10: Session 1- Patient identifies objects in a visual field of 3 with 80% accuracy provided written word and auditory presentation of the word. Patient required repetition of each item for field of3. Patient identifies objects in a visual field of 4 with 80% accuracy provided written word and auditory presentation of the word. Patient required repetition of each item for field of 4. Goal #2: Patient will answer simple yes/no questions immediately after review with >70% accuracyprovided moderate cues for attention and initiation. 03/07: Session 1: Patient responded to Y/N questions with jargon and some intelligible word related to questions (e.g., It was my father's name in response to Is your last name 'Cindy?'). 03/08: Session 1- Patient responds to simple Y/N questions with 30% accuracy. Errorless learning wasattempted with mixed success. 1. 6- Error: Inaccurate attempt at the task item 2. 6- Error: Inaccurate attempt at the task item 3. 6- Error: Inaccurate attempt at the task item 4. 9- Repeated: Accurate, after instructions are repeated (errorless learning utilized) 5. 6- Error: Inaccurate attempt at the task item (errorless learning attempted) 6. 9- Repeated: Accurate, after instructions are repeated (errorless learning utilized) 7. 6- Error: Inaccurate attempt at the task item (errorless learning attempted) 8. 6- Error: Inaccurate attempt at the task item (errorless learning attempted) 9. 9- Repeated: Accurate, after instructions are repeated (errorless learning utilized) 10. 6- Error: Inaccurate attempt at the task item 03/09: Session 1- Patient responds to simple Y/N questions with 60% accuracy. Today patient benefitsfrom written yes/no board and gestures for prompting. 1. 6- Error: Inaccurate attempt at the task item; 9- repeated 2. 9- Repeated: Accurate, after instructions are repeated 3. 15- Complete: accurate, responsive, complete, prompt, efficient 4. 6- Error: Inaccurate attempt at the task item 5. 13- Complete-delayed: Accurate, responsive, complete or complex, delayed 6. 15- Complete: accurate, responsive, complete, prompt, efficient 7. 13- Complete-delayed: Accurate, responsive, complete or complex, delayed 8. 13- Complete-delayed: Accurate, responsive, complete or complex, delayed 9. 13- Complete-delayed: Accurate, responsive, complete or complex, delayed 10. 6- Error: Inaccurate attempt at the task item 03/10: Session 1- Patient responds to simple Y/N questions with 20% accuracy. Today patient benefitsfrom written yes/no board and gestures for prompting. 1. 6- Error: Inaccurate attempt at the task item 2. 6- Error: Inaccurate attempt at the task item 3. 8- Cued: Accurate, after cue is given 4. 15- Complete: accurate, responsive, complete, prompt, efficient 5. 6- Error: Inaccurate attempt at the task item 6. 6- Error: Inaccurate attempt at the task item 7. 6- Error: Inaccurate attempt at the task item 8. 15- Complete: accurate, responsive, complete, prompt, efficient 9. 6- Error: Inaccurate attempt at the task item 10. 6- Error: Inaccurate attempt at the task item Goal #3: Patient will follow simple 1-step commands related to functional environment with >70% accuracy provided moderate verbal/tactile/visual cues in order to increase functional integration into environment. 03/09: Session 2- Patient follows simple 1-step commands related to environment with 0% accuracy independently. Accuracy increases to 90% accuracy following a model by the clinician with slowed auditory presentation of directions. 03/10: Session 1- Patient follows simple 1-step commands related to environment with 0% accuracy independently. Accuracy increases to 90% accuracy following a model by the clinician with slowed auditory presentation of directions. Expressive Language: Goal #1: Patient will recite automatic speech tasks given moderate cues with >70% accuracy. 03/08: Session 1- Patient recites automatic speech tasks with the clinician. See results below: 1-10: 100% accuracy following a model The Alphabet: Unable to perform in unison Months of the Years: Attempted to have patient repeat each month after the clinician: November, December, (jargon), (jargon), stomach, June, medication, June compation, sincation medication,ekaterina, French, Liliana Teague 03/09: Session 1- Patient recites automatic speech tasks with the clinician. See results below: 1-10: 100% accuracy following a starter cue one... The Alphabet: T1: A, me, S, d, 8, q, A, me, d, ec, q, g, h, eed, h ; T2: Patient was able to achieve 50% in unison with the clinician but eventually perseverated on w Days of the Week: Patient perseverated on w, k despite max cues, models, and attempts to perform in unison Session 2- Patient recites automatic speech tasks with the clinician. See results below: 1-10: 80% accuracy following a repetition of the instructions; 80% accuracy in trial 2 following a repetition of the instructions. The Alphabet: A, 7 you mean? following max cues and models Days of the Week: Patient perseverated on w, k despite max cues, models, and attempts to perform in unison 03/10: Session 1- Patient recites automatic speech tasks with the clinician. See results below: 1-10: 100% accuracy The Alphabet: a, q, q, jews, each, l, l, elf Days of the Week: w, q, w, q, w, q, l, q, l, q Goal #2: Patient will name objects (real or pictured) to confrontation with >70% accuracy provided moderate verbal cues. 03/08: Session 1- Patient names real pictured objects to confrontation in 4 out of 29 trials provided errorless learning and maximum cues from the clinician. 03/09: Session 2- Patient names real pictured objects to confrontation with 10% accuracy today. 03/10: Session 1- Patient names real pictured objects to confrontation with 0% accuracy. that's a nice pretty outfit (house) argenips... Something you eat. (grapes) Lissessis... Communities (shoes) subins (wrestle) sunspickum (vacuum) stomach (tongue) maskick... Stomach (moreno) Jurgenarsesis (brain) she's here (nurse) stomach (popcorn) Session 2- Patient names real pictured objects to confrontation with 0% accuracy. stomach (watch) sillicus (eye) lillicarpus (zipper) firekin (shark) jargon (shirt) jargon (spoon) stugish sodagis (shoes) stymish (chair) david (cow) jargon (baby) mamus (barn) stomach (bat) stomach talks (lips) Goal #3: Patient will repeat 1-2 syllable functional words with >70% accuracy provided a visual model by the clinician. 03/09: Session 2- Patient repeats 1-2 syllable functional words with 10% accuracy provided a visual model by the clinician. For 60% of trials patient produced neologisms and for 30% of trials patient produced phonemic paraphasias. See results below: 2. 6- Error: Inaccurate attempt at the task item; neologism 3. 6- Error: Inaccurate attempt at the task item; neologism 4. 15- Complete: accurate, responsive, complete, prompt, efficient 5. 14- Distorted: accurate, responsive, complete or complex, prompt, distorted; phonemic paraphasia 6. 6- Error: Inaccurate attempt at the task item; neologism 7. 6- Error: Inaccurate attempt at the task item; neologism 8. 14- Distorted: accurate, responsive, complete or complex, prompt, distorted; phonemic paraphasia 9. 14- Distorted: accurate, responsive, complete or complex, prompt, distorted; phonemic paraphasia 10. 6- Error: Inaccurate attempt at the task item; neologism 03/10: Session 1- Patient repeats 1-2 syllable functional words with 30% accuracy provided a visual model by the clinician. For 70% of trials patient produced neologisms. See results below: 1. 8- Cued: Accurate, after cue is given; neologism for first few trials; required tactile and visual cues 2. 15- Complete: accurate, responsive, complete, prompt, efficient 3. 6- Error: Inaccurate attempt at the task item; neologism 4. 6- Error: Inaccurate attempt at the task item; neologism 5. 15- Complete: accurate, responsive, complete, prompt, efficient 6. 15- Complete: accurate, responsive, complete, prompt, efficient 7. 6- Error: Inaccurate attempt at the task item; neologism 8. 6- Error: Inaccurate attempt at the task item; neologism 9. 6- Error: Inaccurate attempt at the task item; neologism 10. 6- Error: Inaccurate attempt at the task item; neologism Session 2- Patient repeats 1-2 syllable functional words with 30% accuracy provided a visual model by the clinician. For 70% of trials patient produced neologisms. Reading Comprehension: Goal #1: The patient will identify the written word in a field of 2, given an auditory model with 80% accuracy. Goal #2: The patient will identify the written word to match a given object or picture with 80% accuracy in a field of 3 (presented in a vertical orientation). Written Expression: Goal #1: The patient will write functional words and short phrases related to personal information (e.g., name, address, date of ) with 90% accuracy given mod verbal/visual cues. 03/09: Session 2- Patient writes functional words and short phrases related to personal information.See results below: Name: 100% accuracy Address: Patient does not provide street number, street name, or apartment number. She did write inapartment number once clinician wrote in the street number and street name. She got 100% accuracy for city and state. Phone Number: 100% accuracy Occupation: Unable to complete. Swallowing: Goal #1: Patient will masticate and manipulate boluses of regular food (IDDSI Level 7) adequately to safely consume least restrictive diet provided no cues. 03/08: Session 2- Skilled Tx: dysphagia management and counseling Stimulus: IDDSI Level 7- Regular (case almanzar) Patient Response: Patient demonstrates slightly decreased bolus manipulation within in the oral cavity, however, she is able to compensate effectively. Minimal anterior labial loss on the R side. 03/10: Session 2- Skilled Tx: dysphagia management and counseling Stimulus: IDDSI Level 7- Regular: Cereal with milk Strategies: Swallowing before talking Patient Response: Patient demonstrates slightly prolonged mastication secondary to missing dentition, but is able to compensate effectively with no loss or residue noted. Goal #2: Patient will safely ingest diet trials of regular food (IDDSI Level 7) with the ANESTHESIOLOGY PHYSICIAN ASSISTANT with no overt s/sx of penetration/aspiration in order to safely consume least restrictive diet provided nocues. 03/08: Session 2- Skilled Tx: dysphagia management and counseling and compensatory strategy training Stimulus: IDDSI Level 7- Regular (case yohan) Strategies: Removal of distractions Additional Training Completed: None Barriers to Learning: Presence of language impairment Patient Response: No overt s/sx of laryngeal penetration/aspiration noted across 100% of trials. Minimal cues for attention to meal were required. 03/10: Session 2- Skilled Tx: dysphagia management and counseling Stimulus: IDDSI Level 7- Regular: Cereal with milk Strategies: Swallowing before talking, alternating liquids and solids Patient Response: Patient tolerated self-administered spoonful of cereal with milk x5 with prolonged, but adequate, oral prep and no overt s/sx of penetration/aspiration noted. Patient self-administered all items without assistance from the clinician and was noted to utilize appropriate bite sizes. Patient required consistent cues to not talk until she had swallowed her mouthful of food. PATIENT/FAMILY EDUCATION: Patient/Family Education: Patient/family education was provided today including: rehab goals and questions were addressed. Topic: Patient/Family education and training was completed today including: the role of Speech-Language Pathology aphasia dysphagia questions were addressed. Learner: patient Method of Education: Verbal Barriers to Learning/Education: patient's level of arousal, fatigue, and presence of language impairment Patient: needs further instruction and education Family: No family present. Patient/Family Goals: Patient states I want to get better. Team Communication: Discussed possibility of HLTBI program with rehab team ?? Assessment /CLINICAL IMPRESSIONS: Ynes White is a female 50 y.o. 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 Today during her first session, Ynes demonstrates improved auditory comprehension of pictured objects from a field of 3 and field of 4 when provided with a written word and auditory presentation. She continues to be hesitant to provide answers when presented with a field of 4 options but often chose the correct answer when provided verbal prompting and encouragement. Auditory comprehension for yes/no questions and sentence level material remains significantly impaired. Yes/no board and errorless learning did not appear effective today. Patient continues to struggle with automatic sequences despite max cues. During today's second session,Ynes demonstrates continued difficulty with repetition and confrontational naming, utilizing neologisms and phonemic paraphasias. Patient has demonstrated good gains in swallow function since admission to inpatient rehabilitation. Swallow follow-up completed during her second session today and patient currently presents with adequate oral containment; slow, but complete oral management and mastication, and adequate transport with trials of regular textures. She exhibits improved bolus manipulation and swallowed response compared to previous sessions. No overt signs and symptoms of penetration/aspiration noted. As such, she demonstrates readiness for advancement to regular diet with thin liquids with distant supervision,small bites/sips, and low stimulation evironment at mealtimes. Patient is at low risk of aspirationat this time. Anticipate patient will tolerate upgrade to regular textures. Do not anticipate further need for dysphagia management at this time. Ynes remains appropriate for 30 min BID sessions for aphasia intervention based on her level of arousal, fatigue, and engagement. Ynes White also currently presents with severe expressive and receptive aphasia, most consistent with Wernicke's type but with some deviation from typical Wernicke's type presentation. Patient appears to be able to follow some basic 1-step commands effectively provided context, models, slow auditory presentation of information, and tactile cues as needed. Repetition, object naming, word fluency, sentence completion, and responsive speech are all impaired. Ynes demonstrates a favorable response to use of gestures to assist with her auditory comprehension. Expressive language is characterized as fluent but mostly consists of word salad with many instances of jargon, neologisms, andparaphasias with occasional moments of intelligible discourse scattered throughout. Stefanies discourse could also be described as tangential and perseverative. She attempts to utilize gestures to augment her expressive language, but is not always successful. She is also demonstrating breakdowns in reading comprehension at the short sentence level and significant deficits in written expression atthe word level, compounded by impaired auditory comprehension preventing writing to dictation and impaired naming preventing written naming. These deficits impact the patient's ability to functionally communicate her wants, needs, and ideas and hold conversation. She presents with severe impairments in reading comprehension, however, she demonstrates some success with reading comprehension at theword level, which appears to be a relative strength compared to her auditory comprehension. She exhibits significant breakdown in reading comprehension at the short sentence level. Ynes also demonstrates significant deficits in written expression at the single word level. She demonstrates relative strength in copying words and sentences, as well as writing numbers. ? Based on evaluation to date, it has been determined that the patient demonstrates deficits that impact functioning in daily activities and hinder participation in life situations.??Patient currently requires assistance from others to communicate basic wants and needs and direct her medical care. James continue to benefit from her needs being anticipated and simplified information presented to her. Information should be repeated and said in different ways, and augmented with pictures and gestures. The patient is demonstrating strengths in motivation and some intact basic expressive language skills which should be utilized during the patient's plan of care to maximize gains. Contextual factors that may impact the patient's ability to progress toward rehab goals include: severity of language impairment, need for physical assistance, tolerance level for therapy, and pain. Based on patient's tolerance level, it is recommended that patient participate in 30 minute BID sessions initially and build toward 60 minute sessions as tolerated. Given patient's age, independence prior to admission, and social/occupational demands, she would benefit from intensive ANESTHESIOLOGY PHYSICIAN ASSISTANT intervention. Based on the patient's rehab potential, motivation, prior level of function, and the contextual factors, the patient's prognosis is considered good. It is anticip ated that the patient will make functional gains in expressive and receptive language skills with intensive skilled 1:1 speech language pathology services in the inpatient rehabilitation setting. Functional Communication Measures ([place] [employer], 2002). The Functional Communication Measures (FCM???s) are a series of 7 point rating scales, ranging fromleast functional (Level 1) to most functional (Level 7). They have been developed by [employer] to describe different aspects of patient???s functional communication and swallowing abilities over the course of ANESTHESIOLOGY PHYSICIAN ASSISTANT intervention. ?? Spoken Language Comprehension Level 2: With consistent, maximal cues, the individual is able to follow simple directions, respond to simple yes/no questions in context, and respond to simple words orphrases related to personal needs. Spoken Language Expression Level 3: The communication partner must assume responsibility for structuring the communication exchange, and with consistent and moderate cueing, the individual can produce words and phrases that are appropriate and meaningful in context. Reading Level 3: The individual reads single letters and common words, and with consistent moderatecueing, can read some words that are less familiar, longer, and more complex. Writing Level 2: The individual writes single letters and common words with consistent maximal cueing. ?? Swallowing Level 6: Swallowing is safe, and the individual east and drinks independently and may rarely require minimal cueing. The individual usually self-cues when difficulty occurs. May need to avoid specific food items (e.g., popcorn and nuts), or require additional time (due to dysphagia). ?? GOALS: Snf Goals: Projected Functional Communication Measures at discharge: Spoken Language Comprehension Level 4: Individual consistently responds accurately to simple yes/noquestions and occasionally follows simple directions without cues. Moderate contextual support is usually needed to understand complex sentences/messages. The individual is able to understand limited conversations about routine daily activities with familiar communication partners. Spoken Language Expression Level 4: The individual is successfully able to initiate communication using spoken language in simple, structured conversations in routine daily activities with familiar communication partners. The individual usually requires moderate cueing, but is able to demonstrate use of simple sentences (i.e., semantics, syntax, and morphology) and rarely uses complex sentences/messages. Reading Level 4: The individual reads words and phrases related to routine daily activities, and words that are less familiar, longer, and more complex. The individual usually requires moderate cueing to read sentences of approximately 5-7 words. Writing Level 3: The individual writes single letters and common words, and with consistent moderate cueing, can write some words that are less familiar, longer, and more complex. Swallowing Level 6: Individual's ability to eat independently is not limited by swallow function. Swallowing is safe and efficient for all consistencies. Compensatory strategies are effectively used when needed. Goal met - discontinue. ?? Short Term Goals: Auditory Comprehension: Goal #1: Patient will identify objects in a visual field of 2-3 with >70% accuracy provided moderate cues for attention and information processing. Goal #2: Patient will answer simple yes/no questions immediately after review with >70% accuracyprovided moderate cues for attention and initiation. Goal #3: Patient will follow simple 1-step commands related to functional environment with >70% accuracy provided moderate verbal/tactile/visual cues in order to increase functional integration into environment. ?? Expressive Language: Goal #1: Patient will recite automatic speech tasks given moderate cues with >70% accuracy. Goal #2: Patient will name objects (real or pictured) to confrontation with >70% accuracy provided moderate verbal cues. Goal #3: Patient will repeat 1-2 syllable functional words with >70% accuracy provided a visual model by the clinician. ?? Reading Comprehension: Goal #1: The patient will identify the written word in a field of 2, given an auditory model with 80% accuracy. Goal #2: The patient will identify the written word to match a given object or picture with 80% accuracy in a field of 3 (presented in a vertical orientation). Written Expression: Goal #1: The patient will write functional words and short phrases related to personal information (e.g., name, address, date of ) with 90% accuracy given mod verbal/visual cues. Swallowing: Goal #1: Patient will masticate and manipulate boluses of regular food (IDDSI Level 7) adequately to safely consume least restrictive diet provided no cues. Goal met - discontinue. Goal #2: Patient will safely ingest diet trials of regular food (IDDSI Level 7) with the ANESTHESIOLOGY PHYSICIAN ASSISTANT with no overt s/sx of penetration/aspiration in order to safely consume least restrictive diet provided nocues. Goal met - discontinue. ?? Plan RECOMMENDATIONS: Patient will continue to benefit for further ANESTHESIOLOGY PHYSICIAN ASSISTANT intervention in this setting to address dysphagia and aphasia management and intervention needs. ?? Recommend inpatient rehabilitation ANESTHESIOLOGY PHYSICIAN ASSISTANT services: Patient will be seen for a minimum of 5x/week @ 30minutes BID due to current tolerance level. Swallowing Recommendations: Diet: Regular Liquids: IDDSI Level 0- Thin Medications: Medication should be administered crushed with pureed foods or whole with thin liquidsif pt prefers. ?? Precautions: ?? distant supervision at meal times to ensure compliance with strategies. ?? small bites/sips ?? 1 bite at a time ?? complete oral care following each meal ?? Patient needs assist with set up of meals. ?? Patient should eat in a low stimulation environment to increase attention to meal time. ?? When eating, patient should be upright??at 90??degrees as tolerated. ?? Patient may??use a straw when drinking liquids. ?? Oral Care Precautions: Individuals with dysphagia are at increased risk for aspiration. Aspiration occurs when food, liquid, or saliva travels down the airway (to the lungs) instead of down the esophagus (to the stomach). Aspiration can have very serious consequences, including aspiration pneumonia. The mouth contains bacteria that can be dangerous if it enters the lungs and can increase risk of development of aspiration pneumonia. Therefore, it is very important for individuals with dysphagia to follow strict oral care guidelines to reduce the risk of aspirating dangerous oral bacteria. ? Remove any visible debris (pieces of leftover food, etc.) before brushing teeth. ?? [place] teeth thoroughly before and after ALL intake (meals, snacks, etc.). ?? [place] tongue from back to front. ?? [place] the roof of your mouth and cheek pockets. ?? Clean mouth thoroughly each morning and at bedtime. ?? Rinse mouth with water after brushing teeth. ?? Floss teeth daily. ?? Mouth wash is NOT a substitute for brushing teeth. ?? Communication Access and Shared Decision Making Recommendations Please support communication access and shared decision making ability by doing the following: ?? Support Comprehension: ?? Have a pen and paper ready when communicating. ?? Please present information slowly and simplify. Augment with drawings, diagrams, gestures and pointing. ?? Ask one question at a time. ?? Have only one person speak at a time. ?? Environmental modifications:? Simplify the environment: ?? Carryover/Discharge??and Healthcare Decision making considerations ?? Will need family support for the successful carryover of discharge recommendations. ?? Currently comprehension of non-contextual information is a barrier Oliva Martinez MS CCC-ANESTHESIOLOGY PHYSICIAN ASSISTANT Terence Fox MS, CCC-ANESTHESIOLOGY PHYSICIAN ASSISTANT 03/10/2020 16:40 * Milli Singh, PT - 03/10/2020 6085 EDT [facility] Rehabilitation Therapy Inpatient Rehabilitation Center [facility] Physical Therapy Encounter Note Date of Service: 03/10/2020 Subjective/Objective Subjective I'm not going to get into it. (regarding not sleeping last night) Objective Start time: 1000 Total Therapy Minutes: 30 minute(s) Interventions completed today: Vital Signs: XK=773/60 HR=94 Neuromuscular re-education: Dynamic balance activities with focus on anticipatory and reactive postural control with variable task performance. Secondary goal of increasing activity tolerance and spacing of seated rest breaks. Pt completed with min contact A x 1 : -standing on airex pad 2 x 1 min without UE support: therapist provided cuing for gaze stabilization and upright posture. Pt with significant instability initially but improving with increased time. Seated rest break in between. -slalom through cones, 7 cones, 4 laps total, seated rest break at detention point per pt request. Therapist provided cuing for looking in the direction of travel. Pt able to clear all cones. Gait Training: Assist: min contact A x 1 ? Device:?? none Distance: ??75', 100', 120' Condition/task:??overground, tile, open environment Gait deviations:?no instances of brushing up against objects but did reach for and use railing for the majority of the walk today, decreased L stance time, intermittently demonstrates antalgic gait Focus of gait training:? attempting to decrease UE support while walking, equal step length Patient/Family Education: Topic: Purpose of dynamic balance activities Learner: patient Method: verbal Barriers to Learning: cognitive deficits and aphasia Outcome: verbalized understanding Team Communication: with team in rounds Assessment/Plan Assessment Pt in generally good spirits and willing to participate today despite back to back therapies and having not slept well last night. Remains appropriate for acute rehab level of intensity with rest breaks in between treatments as able. Plan Progress assessment tomorrow Pathfinding Gait training without device (have pt use hand pipe or steam fitter furnace installer before and after, she does reach for objects when not using device). ??Use RW when pt is more fatigued, in pain.?? Attention to the right Initiate high level brain injury program when appropriate Dynamic balance Stairs Endurance/activity tolerance Primary Therapist: Contact information: Pager: [phone] Milli Singh PT 03/10/2020 7:42 * Maria Victoria Hernandez MD - 03/09/2020 8868 EDT MEDICINE FOLLOW-UP Date of service: 03/09/2020 PCP: Alejandrina Carrillo CHIEF COMPLAINT: Hypercoagulable state of unclear origin, cerebral venous thrombosis presenting as left frontal intraparenchymal hemorrhage, incidental PE in RUL and UE DVT, worsening hemorrhage in the setting of therapeutic anticoagulation SUBJECTIVE: thanks for listening, that really helped. Very pleasant, seems to indicate that she can remember some things well but not others. Confused still about what happened. Seems to be enjoying the therapies as far as I can tell. RN told me that she is declining the scheduled bowel medications - made prn She also does not want anything through the GTube - changed MVI to Flintstones this am. OBJECTIVE: Patient Vitals for the past 48 hrs: BP Pulse Resp Temp 03/09/20 0644 113/74 (!) 113 16 36.4 ??C (97.5 ??F) 03/08/20 0644 92/52 95 14 36.9 ??C (98.4 ??F) Vital signs are stable and the patient is afebrile. Physical exam is stable - left craniotomy site looks good. [place] all in place. No distress. Respirations even, unlabored. Motor/sensory exam stable. MEDICATIONS: amino acids-protein hydrolysate 30 mL feeding tube BID aspirin chewable 81 mg oral DAILY enoxaparin 80 mg subcutaneous Q12H lisinopriL 20 mg oral DAILY melatonin 3 mg oral QHS metoprolol 25 mg oral BID multivitamin 1 Tab oral DAILY nicotine 1 Patch transdermal Q24H nutren 1.5 240 mL per g tube QID AFTER MEALS & HS pantoprazole 40 mg oral DAILY QUEtiapine 25 mg oral QHS acetaminophen 650 mg Q4H PRN bisacodyL 10 mg Q48H PRN calcium carbonate 1 Tab QID PRN docusate 100 mg BID PRN guaiFENesin 200 mg Q6H PRN HYDROmorphone 2-4 mg Q4H PRN ondansetron 4 mg Q4H PRN papain-alpha amylase-cellulase 2-5 mL PRN senna 1 Tab BID PRN LABS: Last labs: Labs: I have personally reviewed CBC: Lab Results Component Value Date WBC 6.43 03/02/2020 RBC 4.10 03/02/2020 HGB 13.2 03/02/2020 HCT 39.6 03/02/2020 MCV 97 03/02/2020 MCH 32.2 03/02/2020 MCHC 33.3 03/02/2020 PLT 462 (H) 03/02/2020 NEUTROABS 5.03 02/14/2020 BMP: Lab Results Component Value Date NA 134 (L) 03/07/2020 K 5.1 (H) 03/07/2020 CL 102 03/07/2020 CO2 24 03/07/2020 BUN 26 03/07/2020 CREATININE 0.57 03/07/2020 CALCIUM 8.8 02/14/2020 MG 1.7 03/02/2020 PHOS 4.6 (H) 03/07/2020 LABALBU 3.9 05/07/2001 ASSESSMENT/PLAN: 1. 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 Suspect underlying hypercoagulable state. PT/OT/ANESTHESIOLOGY PHYSICIAN ASSISTANT Falls precautions Delirium prevention measures Aspiration precautions Dysphagia diet: 4 with thins She currently has 1:1 for impulsivity and safety (needs to wear helmet OOB) Would be nice to get off the seroquel at night - can we decrease? 2. Hypercoagulable disorder NOS. Venous dural thrombosis, PE Enox dosing decreased to 80 bid based on LMWH levels Will need OP heme clinic 3. Hypertension On metoprolol 25 bid + lisinopril 20 The patient is medically stable and tolerating the present level of the rehab program. The patient is to continue in the rehabilitation program. Maria Victoria Hernandez MD * Jaden Rutherford MD - 03/09/2020 1228 EDT Physiatry Progress Note Admit Date: 03/02/2020 Hospital Day: LOS: 7 days Date of Service: 03/09/2020 Chief Complaint: Left temporoparietal hemorrhage status post decompressive craniectomy, setting of central venous thrombosis 02/14/2020 Subjective: Remains with expressive and receptive language deficits limiting history. No apparent headache. Improved participation in therapies over the last 24 hours. Current Facility-Administered Medications: acetaminophen (TYLENOL) tablet 650 mg oral Q4H PRN amino acids-protein hydrolysate (PRO SOURCE NOCARB) packet 30 mL feeding tube BID aspirin chewable tablet 81 mg oral DAILY bisacodyL (DULCOLAX) suppository 10 mg rectal Q48H PRN calcium carbonate (TUMS) 200 mg calcium (500 mg) per chewable tablet tablet,chewable 1 Tab oral QIDPRN docusate (COLACE) liquid 100 mg oral BID PRN enoxaparin (LOVENOX) injection 80 mg subcutaneous Q12H guaiFENesin tablet 200 mg oral Q6H PRN HYDROmorphone (DILAUDID) tablet 2-4 mg oral Q4H PRN lisinopriL (PRINIVIL) tablet 20 mg oral DAILY melatonin tablet 3 mg oral QHS metoprolol (LOPRESSOR) tablet 25 mg oral BID multivitamin (FLINTSTONES) chewable tablet 1 Tab oral DAILY nicotine (NICODERM CQ) 7 mg/24 hr patch 1 Patch transdermal Q24H nutren 1.5 liquid 240 mL per g tube QID AFTER MEALS & HS ondansetron (ZOFRAN-ODT) disintegrating tablet 4 mg oral Q4H PRN pantoprazole (PROTONIX) tablet 40 mg oral DAILY papain-alpha amylase-cellulase (CLOG ZAPPER) 2-5 mL feeding tube PRN QUEtiapine (SEROQUEL) tablet 25 mg oral QHS senna (SENOKOT) tablet 1 Tab oral BID PRN Objective/Physical Exam: VS: Patient Vitals for the past 8 hrs: BP Pulse Resp Temp 03/09/20 0644 113/74 (!) 113 16 36.4 ??C (97.5 ??F) Pain: Patient Vitals for the past 8 hrs: Numeric Pain Level (Scale 1-10) Asleep 03/09/20 1036 0 -- 03/09/20 0933 0 -- 03/09/20 0851 8 -- 03/09/20 0847 8 -- 03/09/20 0740 8 -- 03/09/20 0620 0 Reassessed, sleeping comfortably, RR WNL. 03/09/20 0530 0 Reassessed, sleeping comfortably, RR WNL. Weight: Weight : 84.7 kg (186 lb 11.2 oz) Glucose Readings (last 8 readings): No results for input(s): GLUCOSEFINGE in the last 72 hours. I&O: Intake/Output Summary (Last 24 hours) at 03/09/2020 1228 Last data filed at 03/09/2020 0933 Gross per 24 hour Intake 480 ml Output -- Net 480 ml Exam: Gen: Alert, pleasant, no distress HEENT: Left decompressive hemicraniectomy site is full with ghassan in place and surgical incision.No clear visual field cut. No facial droop. Pharynx is clear. Neck supple. Mucosal membranes are moist Skin: no rashes Cardiac: Cor RRR Pulmonary: clear to auscultation bilaterally Abdomen: normal bowel sounds, soft, nontender to palpation, PEG tube is intact Musculoskeletal: no joint tenderness, deformity or swelling, no muscular tenderness noted, full range of motion without pain Neuro: Expressive greater than receptive aphasia affect: Sleepy Motor: Strength no clear focal weakness, although there may be some relative right lower extremity weakness. Tone normal Reflexes: trace Sensation: No extinction no clear focal sensory loss Cerebellar: no tremors Labs: I have personally reviewed CBC: Lab Results Component Value Date WBC 6.43 03/02/2020 RBC 4.10 03/02/2020 HGB 13.2 03/02/2020 HCT 39.6 03/02/2020 MCV 97 03/02/2020 MCH 32.2 03/02/2020 MCHC 33.3 03/02/2020 PLT 462 (H) 03/02/2020 NEUTROABS 5.03 02/14/2020 BMP: Lab Results Component Value Date NA 134 (L) 03/07/2020 K 5.1 (H) 03/07/2020 CL 102 03/07/2020 CO2 24 03/07/2020 BUN 26 03/07/2020 CREATININE 0.57 03/07/2020 CALCIUM 8.8 02/14/2020 MG 1.7 03/02/2020 PHOS 4.6 (H) 03/07/2020 LABALBU 3.9 05/07/2001 Assessment/Problems: (update problem list daily as appropriate) Patient Active Problem List Diagnosis Date Noted ??? *(H)Left-sided nontraumatic intracerebral hemorrhage ([facility]) 03/02/2020 Priority: Medium Status post decompressive hemicraniectomy ??? Brain herniation ([facility]) 02/17/2020 Priority: Medium ??? Cerebral edema ([facility]) 02/17/2020 Priority: Medium ??? 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 (H)Cerebral venous thrombosis 02/14/2020 Priority: Medium ??? Encounter for insertion or removal of intrauterine contraceptive device 02/12/2020 Priority: Medium ??? Nicotine dependence, unspecified, uncomplicated 02/12/2020 Priority: Medium ??? Perimenopausal 02/12/2020 Priority: Medium ??? Post concussion syndrome 02/12/2020 Priority: Medium ??? Tobacco abuse 12/02/2012 Priority: Medium ??? Chronic low back pain 10/13/2012 Priority: Medium ??? Back pain 09/25/2012 Priority: Medium Plan: 1. Left frontal intraparenchymal hemorrhage: Status post decompressive craniectomy. Patient with residual mild right-sided weakness, significant expressive and receptive aphasia, dysphagia. Full PT, OT, ANESTHESIOLOGY PHYSICIAN ASSISTANT to address mobility, self care communication and swallowing function. 24 hour rehab nursing for self care deficits. If she remains on the sedated side, will request follow- up CT scan of the head. Helmet on when out of bed. Follow-up CT scan of the head completed today which shows no new intracranial abnormalities and expected evolution of the left temporal hemorrhage with evolving encephalomalacia. Dysphagia level 4 diet with thin liquids. 2. 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 Evidence of left IJ, sigmoid and transverse sinuses as well. Now on therapeutic dose Lovenox. Continued follow-up with hematology and thrombosis clinic in 2-4 weeks from inpatient rehabilitation admission. Low molecular weight heparin level obtained and was subtherapeutic with Lovenox adjusted to 80 mg every 12 hours. Plan to recheck level tomorrow. 3. Right upper lobe pulmonary embolism, left upper extremity DVT: Now on therapeutic dose Lovenox. ?? 4. History of anxiety/depression: Monitor clinically. Currently on Seroquel at at bedtime. Considermedical psychology consultation as language deficits allow. She has listed allergies to citalopram and duloxetine. 5. Nutrition: Supplemental Nutren 1.5, 4 times daily unless she is taking in greater than 50% of meals. ?? Jaden Rutherford MD 03/09/2020 12:28 * Annabelle Hendrickson PTA - 03/09/2020 0819 EDT [facility] Rehabilitation Therapy Inpatient Rehabilitation [facility] Physical Therapy Encounter Note Date of Service: 03/09/2020 Subjective/Objective Subjective I take something for this every 3 minutes . Pt stated while rubbing her head. Pt with c/o pain in her stomach , pt held one or both hands over her left lower abdomin while walking due to pain. Pt unable to use numeric pain scale. Objective PT Treatment 2 Start Time: 1400 Individual Therapy (minutes): 30 Minutes Total Minutes Treatment 2: 30 Therapeutic Activity : Supine <> sit & sit <> stand with close supervision. Pt was given assist with her josselin as the strap was pulled out of the fasteners . Gait : Pt ambulated no device with CG to close supervision of 1 . Inside level surface, ~ 500' x 1 & 120' x 2 . No LOB STAIRS : Up & Down 8- 6 steps with one rail , step over step with CG. At end of session pt walked back to her room with close supervision , no cues needed to locate her room. Neuro re-ed: Pt scanning for cones while ambulating , First time through pt found 7/10 cones , placed on her Left & right . Pt did miss 2 Left & 1 right . Pt turned around at end of [place] while walking back pt found all 3 missed cones. Patient/Family Education: Rational for afternoon treatment . Team Communication: Discussed case with primary Therapist . Assessment/Plan Assessment Pt was reluctant at first to participate in afternoon PT session, but once up she did well despite being in pain . Plan per primary therapist including : Gait Stairs Dynamic balance Primary Therapist: Milli Singh PT Pager: [phone] ANNABELLE HENDRICKSON PTA 03/09/2020 8:20 * Nolvia Lamar, OT - 03/09/2020 0803 EDT Rehabilitation Therapies Inpatient Rehabilitation [facility] Occupational Therapy Encounter Note Date of Service: 03/09/2020 Subjective/Objective SUBJECTIVE: My dad was the best. Dad . (said while crying) I'm so confused. [jargon due to expressive aphasia] All this [motioning to head and then more jargon]... I'm tired. Eating takes a lot. OBJECTIVE: Session One Start time: 0930 minute(s) Total Therapy Minutes: 30 minute(s) Second session Start Time: 1330 Total Minutes Treatment 2: 30 minute(s) Interventions included: Session One: Cognition -Pt laying in chair at start of session and upon therapist arrival immediately motioned to move to bed and began transferring. Responsive to therapist's instruction to briefly wait in order for path to be cleared of phone and remote wires. Min contact assist for transfer. -Focused session on progressing orientation, problem solving and attention. ?? Looked at family/friend pictures with pt. Appeared to have recognition of individuals in photos,but presented with nonsensical jargon due to aphasia. Appeared to be telling stories of the individuals, but unable to understand further. However, when she saw pictures of who she described as her mom and dad, pt started crying. Able to convey that they had both and that this topic was difficult for her. The of her parents is consistent with chart reviewed. Pt able to move on with next task after a few minutes. ?? Pt unable to verbally respond to where she currently was or the date. When asked why she was here, was able to use a mixtures of words and hand motion to refer to head. ?? Provided pt with calendar and was asked to locate date. Pt located correct date with slightly extra time. When asked how she knew it, she reported that she looked at whiteboard earlier in day and pointed to it. Unable to find holidays when asked verbally, but when holiday was written down on a separate piece of paper, pt located , and without cues. Of note, pt removed glasses for near-point acuity. One cue was required to locate the first day of Summer (written on calendar) and she did choose Nov 25 for 's Oriana. When oriana was pointed out to pt, she located Nov 24 (was not written on calendar). Session Two Therapeutic Activity -At therapist arrival, pt successfully conveyed that she wanted to save the remainder of her lunch but that she couldn't eat anymore. Tray was moved to side and nursing re-heated at end of session. Pt reported stomach and or heartburn pain throughout session; RN aware and provided medication. -To address problem solving and sequencing, pt was asked to disassemble and reassemble a large flashlight. A visual demonstration of all steps were provided. Pt had difficulty following correct stepsto nestle small bulb within reflector and connector. Required one additional visual demonstration and extra time, but was then able to complete remaining steps without assist. -Pt completed laundry folding task while seated. Folded both shirts, shorts and matched socks without any difficulty and with good accuracy. Task appeared familiar and comfortable to pt, however, pt began to cry and speak of her parent's again. Crying became more pronounced and returned to room with pt. Pt reported feeling more emotional and confused while pointing to her head then returnedto mainly jargon with references to both her mom and her dad. Listened to pt and provided with emotional support; RN also present for support and medication. Pt reported feeling better at end of session and was no longer tearful. *Pt ambulated from room>LSR>quiet treatment space>room with min assist and no LOB. Vital signs: Vital signs have been stable with interventions and were not monitored. Patient/Family Education: See above. Team Communication: With RN regarding pt's status Assessment/Plan ASSESSMENT: Pt tolerated sessions well, but became tearful twice after bringing up the topic of her parent's deaths (once triggered by looking at family photos & once during laundry folding). Pt demonstrated good orientation to current date using calendar and was able to locate multiple holidays (, , ) without assist. One cue needed to locate the first day of Summer and chose Nov 25 when asked (via writing) to locate New 's [place]. Expressive and receptive aphasia are continued limitations. Pt completed familiar laundry folding and sock matching tasks without difficulty, but required an additional demonstration to re-assemble small parts of a flashlight (novel, but fairly simple task). PLAN: -Continue per primary OT's POC. Pager: [phone] Nolvia Lamar OT * Oliva Martinez MS [facility]-ANESTHESIOLOGY PHYSICIAN ASSISTANT - 03/09/2020 6702 EDT Speech-Language Pathology Daily and Current Progress Note ANESTHESIOLOGY PHYSICIAN ASSISTANT Diagnosis: Aphasia and oropharyngeal phase dysphagia Medical Diagnosis: Cerebral venous thrombosis and resultant intraparenchymal hemorrhage in the leftfrontotemporal area Date of Onset: 02/14/20 Date of Referral: 03/02/20 Subjective/Objective SUBJECTIVE: 1st session: I actually got a stomach (jargon) and it helped with (jargon) with me hurting so much. There gonna eat me at the (jargon). (re: family coming this weekend) This December I should be back home. I'm talking too much. I'm going to stop. 2nd session: I'm getting a really bad well. That's what they are from having a menigar. padmini ramos (perservation on this neologism during days of the week automatic task attempt) OBJECTIVE: Date of Service: 03/09/2020 First Session: Start Time: 1030 Total Therapy minutes: 30 minute(s) comm-cog tx Second Session: Start Time: 1130 Total Therapy minutes: 30 minute(s) comm-cog tx Current Treatment Objectives: Auditory Comprehension: Goal #1: Patient will identify objects in a visual field of 2-3 with >70% accuracy provided moderate cues for attention and information processing. 03/07: After initially reviewing names of items in f-3, patient selected target object in response to verbally presented object name with the following accuacy: Items Unlabeled (57%) Labels Added (83%) Labels Removed (75%) 1. 9 1. 9 1. 9 2. 9 2. 9 2. 9 3. 6/8 3. 9 3. 8 4. 9 4. 6/8 4. 9 5. 6/8 5. 9 6. 6/8 6. 9 7. 9 03/08: Session 1- Patient identifies objects in a visual field of 2 with 90% accuracy provided written word and auditory presentation of the word. Patient identifies objects in a visual field of 3 with 80% accuracy provided written word and auditory presentation of the word. Patient required repetition of each item for field of 3. 03/09: Session 1- Patient identifies objects in a visual field of 3 with 80% accuracy provided written word and auditory presentation of the word. Patient required repetition of each item for field of3. Patient identifies objects in a visual field of 4 with 80% accuracy provided written word and auditory presentation of the word. Patient required repetition of each item for field of 4. She required verbal encouragement to trust her gut during field of 4 as she was often hesitant to make a selection. Goal #2: Patient will answer simple yes/no questions immediately after review with >70% accuracyprovided moderate cues for attention and initiation. 03/07: Session 1: Patient responded to Y/N questions with jargon and some intelligible word related to questions (e.g., It was my father's name in response to Is your last name 'Cindy?'). 03/08: Session 1- Patient responds to simple Y/N questions with 30% accuracy. Errorless learning wasattempted with mixed success. 1. 6- Error: Inaccurate attempt at the task item 2. 6- Error: Inaccurate attempt at the task item 3. 6- Error: Inaccurate attempt at the task item 4. 9- Repeated: Accurate, after instructions are repeated (errorless learning utilized) 5. 6- Error: Inaccurate attempt at the task item (errorless learning attempted) 6. 9- Repeated: Accurate, after instructions are repeated (errorless learning utilized) 7. 6- Error: Inaccurate attempt at the task item (errorless learning attempted) 8. 6- Error: Inaccurate attempt at the task item (errorless learning attempted) 9. 9- Repeated: Accurate, after instructions are repeated (errorless learning utilized) 10. 6- Error: Inaccurate attempt at the task item 03/09: Session 1- Patient responds to simple Y/N questions with 60% accuracy. Today patient benefitsfrom written yes/no board and gestures for prompting. 1. 6- Error: Inaccurate attempt at the task item; 9- repeated 2. 9- Repeated: Accurate, after instructions are repeated 3. 15- Complete: accurate, responsive, complete, prompt, efficient 4. 6- Error: Inaccurate attempt at the task item 5. 13- Complete-delayed: Accurate, responsive, complete or complex, delayed 6. 15- Complete: accurate, responsive, complete, prompt, efficient 7. 13- Complete-delayed: Accurate, responsive, complete or complex, delayed 8. 13- Complete-delayed: Accurate, responsive, complete or complex, delayed 9. 13- Complete-delayed: Accurate, responsive, complete or complex, delayed 10. 6- Error: Inaccurate attempt at the task item Goal #3: Patient will follow simple 1-step commands related to functional environment with >70% accuracy provided moderate verbal/tactile/visual cues in order to increase functional integration into environment. 03/09: Session 2- Patient follows simple 1-step commands related to environment with 0% accuracy independently. Accuracy increases to 90% accuracy following a model by the clinician with slowed auditory presentation of directions. Expressive Language: Goal #1: Patient will recite automatic speech tasks given moderate cues with >70% accuracy. 03/08: Session 1- Patient recites automatic speech tasks with the clinician. See results below: 1-10: 100% accuracy following a model The Alphabet: Unable to perform in unison Months of the Years: Attempted to have patient repeat each month after the clinician: November, December, (jargon), (jargon), , June, April medication, June compation, sincation medication,seegus, French, lessonagus Musa, Decemegas 03/09: Session 1- Patient recites automatic speech tasks with the clinician. See results below: 1-10: 100% accuracy following a starter cue one... The Alphabet: T1: A, me, S, d, 8, q, A, me, d, ec, q, g, h, eed, h ; T2: Patient was able to achieve 50% in unison with the clinician but eventually perseverated on w Days of the Week: Patient perseverated on w, k despite max cues, models, and attempts to perform in unison Session 2- Patient recites automatic speech tasks with the clinician. See results below: 1-10: 80% accuracy following a repetition of the instructions; 80% accuracy in trial 2 following a repetition of the instructions. The Alphabet: A, 7 you mean? following max cues and models Days of the Week: Patient perseverated on w, k despite max cues, models, and attempts to perform in unison Goal #2: Patient will name objects (real or pictured) to confrontation with >70% accuracy provided moderate verbal cues. 03/08: Session 1- Patient names real pictured objects to confrontation in 4 out of 29 trials provided errorless learning and maximum cues from the clinician. 03/09: Session 2- Patient names real pictured objects to confrontation with 10% accuracy today. Goal #3: Patient will repeat 1-2 syllable functional words with >70% accuracy provided a visual model by the clinician. 03/09: Session 2- Patient repeats 1-2 syllable functional words with 10% accuracy provided a visual model by the clinician. For 60% of trials patient produced neologisms and for 30% of trials patient produced phonemic paraphasias. See results below: 2. 6- Error: Inaccurate attempt at the task item; neologism 3. 6- Error: Inaccurate attempt at the task item; neologism 4. 15- Complete: accurate, responsive, complete, prompt, efficient 5. 14- Distorted: accurate, responsive, complete or complex, prompt, distorted; phonemic paraphasia 6. 6- Error: Inaccurate attempt at the task item; neologism 7. 6- Error: Inaccurate attempt at the task item; neologism 8. 14- Distorted: accurate, responsive, complete or complex, prompt, distorted; phonemic paraphasia 9. 14- Distorted: accurate, responsive, complete or complex, prompt, distorted; phonemic paraphasia 10. 6- Error: Inaccurate attempt at the task item; neologism Reading Comprehension: Goal #1: The patient will identify the written word in a field of 2, given an auditory model with 80% accuracy. Goal #2: The patient will identify the written word to match a given object or picture with 80% accuracy in a field of 3 (presented in a vertical orientation). Written Expression: Goal #1: The patient will write functional words and short phrases related to personal information (e.g., name, address, date of ) with 90% accuracy given mod verbal/visual cues. 03/09: Session 2- Patient writes functional words and short phrases related to personal information.See results below: Name: 100% accuracy Address: Patient does not provide street number, street name, or apartment number. She did write inapartment number once clinician wrote in the street number and street name. She got 100% accuracy for city and state. Phone Number: 100% accuracy Occupation: Unable to complete. Swallowing: Goal #1: Patient will masticate and manipulate boluses of regular food (IDDSI Level 7) adequately to safely consume least restrictive diet provided no cues. 03/08: Session 2- Skilled Tx: dysphagia management and counseling Stimulus: IDDSI Level 7- Regular (case cracker) Patient Response: Patient demonstrates slightly decreased bolus manipulation within in the oral cavity, however, she is able to compensate effectively. Minimal anterior labial loss on the R side. Goal #2: Patient will safely ingest diet trials of regular food (IDDSI Level 7) with the ANESTHESIOLOGY PHYSICIAN ASSISTANT with no overt s/sx of penetration/aspiration in order to safely consume least restrictive diet provided nocues. 03/08: Session 2- Skilled Tx: dysphagia management and counseling and compensatory strategy training Stimulus: IDDSI Level 7- Regular (case almanzar) Strategies: Removal of distractions Additional Training Completed: None Barriers to Learning: Presence of language impairment Patient Response: No overt s/sx of laryngeal penetration/aspiration noted across 100% of trials. Minimal cues for attention to meal were required. PATIENT/FAMILY EDUCATION: Patient/Family Education: Patient/family education was provided today including: rehab goals and questions were addressed. Topic: Patient/Family education and training was completed today including: the role of Speech-Language Pathology aphasia questions were addressed. Learner: patient Method of Education: Verbal Barriers to Learning/Education: patient's level of arousal, fatigue, and presence of language impairment Patient: needs further instruction and education Family: No family present. Patient/Family Goals: Patient states I want to get better. Team Communication: Discussed possibility of HLTBI program with rehab team ?? Assessment /CLINICAL IMPRESSIONS: Ynes White is a female 50 y.o. 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 Today during her first session, Ynes demonstrates improved auditory comprehension of pictured objects from a field of 3 and field of 4 when provided with a written word and auditory presentation. She was hesitant to provide answers when presented with a field of 4 options but often chose the correct answer when provided verbal prompting and encouragement. Auditory comprehension for yes/no questions and sentence level material remains significantly impaired. Today patient benefited from the use of a yes/no board for cues and gestures for pro mpting. Patient continues to struggle with automatic sequences although this has improved since yesterday. During today's second session, Ynes demonstrates improvement in writing functional information. She continues to struggle with confrontational naming and repetition, using neologisms and phonemic paraphasias. She also struggles with comprehension of simple 1-step instructions, requiring amodel to complete tasks with any level of accuracy. Ynes remains appropriate for 30 min BID sessions based on her level of arousal, fatigue, and engagement. Ynes White also currently presents with severe expressive and receptive aphasia, most consistent with Wernicke's type but with some deviation from typical Wernicke's type presentation. Patient appears to be able to follow some basic 1-step commands effectively provided context, models, slow auditory presentation of information, and tactile cues as needed. Repetition, object naming, word fluency, sentence completion, and responsive speech are all impaired. Ynes demonstrates a favorable response to use of gestures to assist with her auditory comprehension. Expressive language is characterized as fluent but mostly consists of word salad with many instances of jargon, neologisms, andparaphasias with occasional moments of intelligible discourse scattered throughout. Ynes's discourse could also be described as tangential and perseverative. She attempts to utilize gestures to augment her expressive language, but is not always successful. She is also demonstrating breakdowns in reading comprehension at the short sentence level and significant deficits in written expression atthe word level, compounded by impaired auditory comprehension preventing writing to dictation and impaired naming preventing written naming. These deficits impact the patient's ability to functionally communicate her wants, needs, and ideas and hold conversation. She presents with severe impairments in reading comprehension, however, she demonstrates some success with reading comprehension at theword level, which appears to be a relative strength compared to her auditory comprehension. She exhibits significant breakdown in reading comprehension at the short sentence level. Ynes also demonstrates significant deficits in written expression at the single word level. She demonstrates relative strength in copying words and sentences, as well as writing numbers. Per previous ANESTHESIOLOGY PHYSICIAN ASSISTANT note, Ynes White currently presents with a mild oropharyngeal phase dysphagia characterized by slightly reduced bolus manipulation, slightly delayed swallow response, adequate hyo-laryngeal excursion via palpation, and multiple swallows of each bolus. No overt signs/ symptomsof laryngeal penetration/ aspiration were identified. Etiology of dysphagia is neurogenic. CN exam suggests involvement of CN XII (Hypoglossal). Patient demonstrates the following aspiration risk factors: swallowing problems and high risk population for silent aspiration (CVA). Based on patient's oral care, likelihood of presence of aspiration, and immune system status, Ynes remains at slightly increased risk of aspiration at this time ([place], 2002; Óscar et. al, 2005, 2008, 2012). Compensatory strategies of slightly modified textures (Dysphagia 4), small bites/sips, and use of multiple swallows appear effective in decreasing risk of aspiration. Prognosis for improvement in swallow function is judged to be good at this time secondary to anticipated neurologic recovery. Anticipate patient will tolerate a Dysphagia 4 diet level with thin liquids and may progress to a regular diet with skilled 1:1 intervention. ? Based on evaluation to date, it has been determined that the patient demonstrates deficits that impact functioning in daily activities and hinder participation in life situations.??Patient currently requires assistance from others to communicate basic wants and needs and direct her medical care. Sachawilaurent continue to benefit from her needs being anticipated and simplified information presented to her. Information should be repeated and said in different ways, and augmented with pictures and gestures. The patient is demonstrating strengths in motivation and some intact basic expressive language skills which should be utilized during the patient's plan of care to maximize gains. Contextual factors that may impact the patient's ability to progress toward rehab goals include: severity of language impairment, need for physical assistance, tolerance level for therapy, and pain. Based on patient's tolerance level, it is recommended that patient participate in 30 minute BID sessions initially and build toward 60 minute sessions as tolerated. Given patient's age, independence prior to admission, and social/occupational demands, she would benefit from intensive ANESTHESIOLOGY PHYSICIAN ASSISTANT intervention. Based on the patient's rehab potential, motivation, prior level of function, and the contextual factors, the patient's prognosis is considered good. It is anticip ated that the patient will make functional gains in expressive and receptive language skills with intensive skilled 1:1 speech language pathology services in the inpatient rehabilitation setting. Functional Communication Measures ([place] [employer], 2002). The Functional Communication Measures (FCM???s) are a series of 7 point rating scales, ranging fromleast functional (Level 1) to most functional (Level 7). They have been developed by [employer] to describe different aspects of patient???s functional communication and swallowing abilities over the course of ANESTHESIOLOGY PHYSICIAN ASSISTANT intervention. ?? Spoken Language Comprehension Level 2: With consistent, maximal cues, the individual is able to follow simple directions, respond to simple yes/no questions in context, and respond to simple words orphrases related to personal needs. Spoken Language Expression Level 3: The communication partner must assume responsibility for structuring the communication exchange, and with consistent and moderate cueing, the individual can produce words and phrases that are appropriate and meaningful in context. Reading Level 3: The individual reads single letters and common words, and with consistent moderatecueing, can read some words that are less familiar, longer, and more complex. Writing Level 2: The individual writes single letters and common words with consistent maximal cueing. ?? Swallowing Level 6: Swallowing is safe, and the individual east and drinks independently and may rarely require minimal cueing. The individual usually self-cues when difficulty occurs. May need to avoid specific food items (e.g., popcorn and nuts), or require additional time (due to dysphagia). ?? GOALS: Psychiatric Nurse Goals: Projected Functional Communication Measures at discharge: Spoken Language Comprehension Level 4: Individual consistently responds accurately to simple yes/noquestions and occasionally follows simple directions without cues. Moderate contextual support is usually needed to understand complex sentences/messages. The individual is able to understand limited conversations about routine daily activities with familiar communication partners. Spoken Language Expression Level 4: The individual is successfully able to initiate communication using spoken language in simple, structured conversations in routine daily activities with familiar communication partners. The individual usually requires moderate cueing, but is able to demonstrate use of simple sentences (i.e., semantics, syntax, and morphology) and rarely uses complex sentences/messages. Reading Level 4: The individual reads words and phrases related to routine daily activities, and words that are less familiar, longer, and more complex. The individual usually requires moderate cueing to read sentences of approximately 5-7 words. Writing Level 3: The individual writes single letters and common words, and with consistent moderate cueing, can write some words that are less familiar, longer, and more complex. Swallowing Level 7: Individual's ability to eat independently is not limited by swallow function. Swallowing is safe and efficient for all consistencies. Compensatory strategies are effectively used when needed. ?? Short Term Goals: Auditory Comprehension: Goal #1: Patient will identify objects in a visual field of 2-3 with >70% accuracy provided moderate cues for attention and information processing. Goal #2: Patient will answer simple yes/no questions immediately after review with >70% accuracyprovided moderate cues for attention and initiation. Goal #3: Patient will follow simple 1-step commands related to functional environment with >70% accuracy provided moderate verbal/tactile/visual cues in order to increase functional integration into environment. ?? Expressive Language: Goal #1: Patient will recite automatic speech tasks given moderate cues with >70% accuracy. Goal #2: Patient will name objects (real or pictured) to confrontation with >70% accuracy provided moderate verbal cues. Goal #3: Patient will repeat 1-2 syllable functional words with >70% accuracy provided a visual model by the clinician. ?? Reading Comprehension: Goal #1: The patient will identify the written word in a field of 2, given an auditory model with 80% accuracy. Goal #2: The patient will identify the written word to match a given object or picture with 80% accuracy in a field of 3 (presented in a vertical orientation). Written Expression: Goal #1: The patient will write functional words and short phrases related to personal information (e.g., name, address, date of ) with 90% accuracy given mod verbal/visual cues. Swallowing: Goal #1: Patient will masticate and manipulate boluses of regular food (IDDSI Level 7) adequately to safely consume least restrictive diet provided no cues. Goal #2: Patient will safely ingest diet trials of regular food (IDDSI Level 7) with the ANESTHESIOLOGY PHYSICIAN ASSISTANT with no overt s/sx of penetration/aspiration in order to safely consume least restrictive diet provided nocues. ?? Plan RECOMMENDATIONS: Patient will continue to benefit for further ANESTHESIOLOGY PHYSICIAN ASSISTANT intervention in this setting to address dysphagia and aphasia management and intervention needs. ?? Recommend inpatient rehabilitation ANESTHESIOLOGY PHYSICIAN ASSISTANT services: Patient will be seen for a minimum of 5x/week @ 30minutes BID due to current tolerance level. Swallowing Recommendations: Diet: Dysphagia 4 Liquids: IDDSI Level 0- Thin Medications: Medication should be administered crushed with pureed foods or whole with thin liquidsif pt prefers. ?? Precautions: ?? small bites/sips ?? 1 bite at a time ?? complete oral care following each meal ?? Patient needs assist with set up of meals. ?? Patient should eat in a low stimulation environment to increase attention to meal time. ?? When eating, patient should be upright??at 90??degrees as tolerated. ?? Patient may??use a straw when drinking liquids. ?? Oral Care Precautions: Individuals with dysphagia are at increased risk for aspiration. Aspiration occurs when food, liquid, or saliva travels down the airway (to the lungs) instead of down the esophagus (to the stomach). Aspiration can have very serious consequences, including aspiration pneumonia. The mouth contains bacteria that can be dangerous if it enters the lungs and can increase risk of development of aspiration pneumonia. Therefore, it is very important for individuals with dysphagia to follow strict oral care guidelines to reduce the risk of aspirating dangerous oral bacteria. ? Remove any visible debris (pieces of leftover food, etc.) before brushing teeth. ?? [place] teeth thoroughly before and after ALL intake (meals, snacks, etc.). ?? [place] tongue from back to front. ?? [place] the roof of your mouth and cheek pockets. ?? Clean mouth thoroughly each morning and at bedtime. ?? Rinse mouth with water after brushing teeth. ?? Floss teeth daily. ?? Mouth wash is NOT a substitute for brushing teeth. ?? Communication Access and Shared Decision Making Recommendations Please support communication access and shared decision making ability by doing the following: ?? Support Comprehension: ?? Have a pen and paper ready when communicating. ?? Please present information slowly and simplify. Augment with drawings, diagrams, gestures and pointing. ?? Ask one question at a time. ?? Have only one person speak at a time. ?? Environmental modifications:? Simplify the environment: ?? Carryover/Discharge??and Healthcare Decision making considerations ?? Will need family support for the successful carryover of discharge recommendations. ?? Currently comprehension of non-contextual information is a barrier Oliva Martinez MS CCC-ANESTHESIOLOGY PHYSICIAN ASSISTANT, MS, CCC-ANESTHESIOLOGY PHYSICIAN ASSISTANT 03/09/2020 12:53 * Milli Singh, PT - 03/09/2020 9069 EDT [facility] Physical Therapy Encounter Note Date of Service: 03/09/2020 Subjective/Objective Subjective Grimacing and holding abdomen toward end of session indicating abdominal pain. Otherwise no indications of pain noted during session. Objective Start time: 1100 Total Therapy Minutes: 30 minute(s) Interventions completed today: Vital Signs: Pre DR=316/63 HR=85 Neuromuscular re-education: Dynamic balance activities with focus on anticipatory and reactive postural control with variable task performance. Secondary goal of increasing activity tolerance and spacing of seated rest breaks. Pt completed with min contact A x 1 : -standing on airex pad 2 x 1 min without UE support: therapist provided cuing for gaze stabilization and upright posture. Pt with significant instability initially but improving with increased time. Seated rest break in between. -slalom through cones, 7 cones, 4 laps total, seated rest break at detention point per pt request. Therapist provided cuing for looking in the direction of travel. Pt able to clear all cones. Gait Training: Assist: min contact A x 1 ? Device:?? RW for first 100', progressing to no AD Distance: ??300', 100' Condition/task:??overground, tile, open environment Gait deviations:?pt brushing up against objects on her right on 2 occasions today, decreased L stance time, step to pattern leading with L, decreased foot clearance B Focus of gait training:? avoiding obstacles on R and L, increasing ambulation endurance, heel totoe pattern Stairs: up/down four 6.5 steps with B rails with min contact A x 1 and cuing for step over step pattern Patient/Family Education: Topic: Ongoing progress with therapy Learner: patient Method: verbal Barriers to Learning: cognitive deficits and aphasia Outcome: requires assist, needs practice and verbalized understanding Team Communication: with ANESTHESIOLOGY PHYSICIAN ASSISTANT and OT regarding high level brain injury program, facilitating communication with pt's family Assessment/Plan Assessment Pt continues to demonstrate improvements in activity tolerance and willingness to participate in therapy. Pt following simple one step verbal commands. Does well with therapist demonstrating activityfor a visual prior to performing higher level tasks. Plan Gait training without device (have pt use hand pipe or steam fitter furnace installer before and after, she does reach for objects when not using device). ??Use RW when pt is more fatigued, in pain.?? Attention to the right Pathfinding Initiate high level brain injury program when appropriate Dynamic balance Stairs Endurance/activity tolerance Primary Therapist: Contact information: Pager: [phone] Milli Singh, SACHA 03/09/2020 7:40 * Isamar Angel - 03/08/2020 2119 EDT CM notes Checked in on patient, she is doing well, no CM needs at this time. Her sister Hola, her brother, and her SO Ever would like to come visit her on Saturday. I have coordinated with them to visit at 10 am. Pt will need to go down to the kitchen for 10 am , and will need a phone in order to communicate with them through the door. Family will be outside on the patio. CM informed charge nurse. Isamar Downs RN CM * Scottie Bob RN - 03/08/2020 1403 EDT Nursing Pain Note D: patient c/o Pain located in the Head. Pt unable to put numeric value on pain. Patient described pain as not well controlled, states pain interfering with ability to focus on therapies. A: Patient receiving PRN medications. See MAR. Provided the following non- pharmacologic interventions: rest. R: Patient now reports pain improved. Verbalized that pain is tolerable. Will continue to monitor and adjust interventions as necessary. SCOTTIE BOB RN 03/08/2020 14:04 * Jaden Rutherford MD - 03/08/2020 1300 EDT Physiatry Progress Note Admit Date: 03/02/2020 Hospital Day: LOS: 6 days Date of Service: 03/08/2020 Chief Complaint: Left temporoparietal hemorrhage status post decompressive craniectomy, setting of central venous thrombosis 02/14/2020 Subjective: Remains with expressive and receptive language deficits limiting history. No apparent headache. Noted to be sleeping most mornings. Current Facility-Administered Medications: acetaminophen (TYLENOL) tablet 650 mg oral Q4H PRN amino acids-protein hydrolysate (PRO SOURCE NOCARB) packet 30 mL feeding tube BID aspirin chewable tablet 81 mg oral DAILY bisacodyL (DULCOLAX) suppository 10 mg rectal Q48H PRN calcium carbonate (TUMS) 200 mg calcium (500 mg) per chewable tablet tablet,chewable 1 Tab oral QIDPRN docusate (COLACE) liquid 100 mg oral BID enoxaparin (LOVENOX) injection 80 mg subcutaneous Q12H guaiFENesin tablet 200 mg oral Q6H PRN HYDROmorphone (DILAUDID) tablet 2-4 mg oral Q4H PRN lisinopriL (PRINIVIL) tablet 20 mg oral DAILY melatonin tablet 3 mg oral QHS metoprolol (LOPRESSOR) tablet 25 mg oral BID Multivitamins with minerals + ferrous gluconate (CENTRUM) oral solution 15 mL feeding tube DAILY nicotine (NICODERM CQ) 7 mg/24 hr patch 1 Patch transdermal Q24H nutren 1.5 liquid 240 mL per g tube QID AFTER MEALS & HS ondansetron (ZOFRAN-ODT) disintegrating tablet 4 mg oral Q4H PRN pantoprazole (PROTONIX) tablet 40 mg oral DAILY papain-alpha amylase-cellulase (CLOG ZAPPER) 2-5 mL feeding tube PRN QUEtiapine (SEROQUEL) tablet 25 mg oral QHS senna (SENOKOT) tablet 1 Tab oral BID Objective/Physical Exam: VS: Patient Vitals for the past 8 hrs: BP Pulse Resp Temp 03/08/20 0644 92/52 95 14 36.9 ??C (98.4 ??F) Pain: Patient Vitals for the past 8 hrs: Numeric Pain Level (Scale 1-10) Asleep 03/08/20 1130 2 -- 03/08/20 1100 2 -- 03/08/20 1038 4 -- 03/08/20 0522 0 Reassessed, sleeping comfortably, RR WNL. Weight: Weight : 84.7 kg (186 lb 11.2 oz) Glucose Readings (last 8 readings): No results for input(s): GLUCOSEFINGE in the last 72 hours. I&O: Intake/Output Summary (Last 24 hours) at 03/08/2020 1300 Last data filed at 03/08/2020 0800 Gross per 24 hour Intake 830 ml Output -- Net 830 ml Exam: Gen: Alert, pleasant, no distress HEENT: Left decompressive hemicraniectomy site is full with ghassan in place and surgical incision.No clear visual field cut. No facial droop. Pharynx is clear. Neck supple. Mucosal membranes are moist Skin: no rashes Cardiac: Cor RRR Pulmonary: clear to auscultation bilaterally Abdomen: normal bowel sounds, soft, nontender to palpation, PEG tube is intact Musculoskeletal: no joint tenderness, deformity or swelling, no muscular tenderness noted, full range of motion without pain Neuro: Expressive greater than receptive aphasia affect: Sleepy Motor: Strength no clear focal weakness, although there may be some relative right lower extremity weakness. Tone normal Reflexes: trace Sensation: No extinction no clear focal sensory loss Cerebellar: no tremors Labs: I have personally reviewed CBC: Lab Results Component Value Date WBC 6.43 03/02/2020 RBC 4.10 03/02/2020 HGB 13.2 03/02/2020 HCT 39.6 03/02/2020 MCV 97 03/02/2020 MCH 32.2 03/02/2020 MCHC 33.3 03/02/2020 PLT 462 (H) 03/02/2020 NEUTROABS 5.03 02/14/2020 BMP: Lab Results Component Value Date NA 134 (L) 03/07/2020 K 5.1 (H) 03/07/2020 CL 102 03/07/2020 CO2 24 03/07/2020 BUN 26 03/07/2020 CREATININE 0.57 03/07/2020 CALCIUM 8.8 02/14/2020 MG 1.7 03/02/2020 PHOS 4.6 (H) 03/07/2020 LABALBU 3.9 05/07/2001 Assessment/Problems: (update problem list daily as appropriate) Patient Active Problem List Diagnosis Date Noted ??? *(H)Left-sided nontraumatic intracerebral hemorrhage ([facility]) 03/02/2020 Priority: Medium Status post decompressive hemicraniectomy ??? Brain herniation ([facility]) 02/17/2020 Priority: Medium ??? Cerebral edema ([facility]) 02/17/2020 Priority: Medium ??? 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 (H)Cerebral venous thrombosis 02/14/2020 Priority: Medium ??? Encounter for insertion or removal of intrauterine contraceptive device 02/12/2020 Priority: Medium ??? Nicotine dependence, unspecified, uncomplicated 02/12/2020 Priority: Medium ??? Perimenopausal 02/12/2020 Priority: Medium ??? Post concussion syndrome 02/12/2020 Priority: Medium ??? Tobacco abuse 12/02/2012 Priority: Medium ??? Chronic low back pain 10/13/2012 Priority: Medium ??? Back pain 09/25/2012 Priority: Medium Plan: 1. Left frontal intraparenchymal hemorrhage: Status post decompressive craniectomy. Patient with residual mild right-sided weakness, significant expressive and receptive aphasia, dysphagia. Full PT, OT, ANESTHESIOLOGY PHYSICIAN ASSISTANT to address mobility, self care communication and swallowing function. 24 hour rehab nursing for self care deficits. If she remains on the sedated side, will request follow- up CT scan of the head. Helmet on when out of bed. Follow-up CT scan of the head completed today which shows no new intracranial abnormalities and expected evolution of the left temporal hemorrhage with evolving encephalomalacia. Dysphagia level 4 diet with thin liquids. 2. 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 Evidence of left IJ, sigmoid and transverse sinuses as well. Now on therapeutic dose Lovenox. Continued follow-up with hematology and thrombosis clinic in 2-4 weeks from inpatient rehabilitation admission. Low molecular weight heparin level obtained and was subtherapeutic with Lovenox adjusted to 80 mg every 12 hours. Plan to recheck in 2 days. 3. Right upper lobe pulmonary embolism, left upper extremity DVT: Now on therapeutic dose Lovenox. ?? 4. History of anxiety/depression: Monitor clinically. Currently on Seroquel at at bedtime. Considermedical psychology consultation as language deficits allow. She has listed allergies to citalopram and duloxetine. 5. Nutrition: Supplemental Nutren 1.5 4 times daily unless she is taking in greater than 50% of meals. ?? I spent a total of 35 minutes in direct floor time dedicated solely to this patient and 20 minutes of that time was spent in discussion with the patient about the risks and treatment options for CT scan results, etiology of her hemorrhage and need for Lovenox anticoagulation.. Jaden Rutherford MD 03/08/2020 13:00 * Tam Gentile, OT - 03/08/2020 1183 EDT [facility] Rehabilitation Therapy Inpatient Rehabilitation [facility] Occupational Therapy Encounter Note Date of Service: 03/08/2020 SUBJECTIVE: Pt reports she is feeling better today and wants to move outside of her room. She indicates she has a procedure coming up and she is scared of it. SESSION1 OBJECTIVE: Start time: 929 Treatment time: 3913-5576 Total Therapy Minutes: 30 minute(s) Interventions included: Self-Care/Home Management 1 unit To progress independence with self care tasks, completed the following activities: ?? Bed mobility with supervision ?? Pt donned helmet with assist for buckle, did indicate she needed to put it on before standing demonstrating some increased insight into her medical situation ?? Socks with cues for sequencing, increased time. Did demonstrate impulsivity as she bent over twice to locate sock on floor requiring assist and cues to regain balance and then verbalized increasedhead pain. Required rest, cues for deep breathing Therapeutic Activities 1 unit To progress functional safety and independence with functional activities, completed the following: ?? Ambulated room to and from quiet treatment room with supervision for safety and gait bet and rolling walker, cues to attend to obstacles in hallway, did walk into a wall on the left once, cues to redirect, identify this and work to avoid obstacles on the left again ?? In treatment room, attempted clock draw, pt able to write out 11/27//08/06, unable to recall othernumbers. Cues to attend to spacing and numbers ?? The [place] Making Test (TMT) consists of two parts. TMT-A requires an individual to draw lines sequentially connecting 25 encircled numbers distributed on a sheet of paper. Task requirements are similar for TMT-B except the person must alternate between numbers and letters (e.g., 1,A,2,A,3,C,etc.). The score on each part represents the amount of time required to complete the task. Age 45-54 Time (seconds) Mean (S.D) [place] A 125 seconds 31.78 (9.93) [place] B unable 63.76 (14.42) [place] 2004 A score of 3 minutes (180 seconds) or more on Trails B signals a need for intervention regarding driving skills per the [employer]. SESSION 2 OBJECTIVE: Start time: 1329 Treatment time: 5388-0220 Total Therapy Minutes: 30 minute(s) Interventions included: Therapeutic activities 2 units ?? Ambulated to and from the gym with rolling walker and minimal contact guard assist for safety, did bump into one object on left side, cues to identify and maneuver around it. ?? While seated edge of mat, completed connect 4 game to progress attention, problem solving and social participation for functional activities ?? Pt with good turn taking ?? socialized well with therapy, laughing and joking well ?? Aphasia a primary barrier to her ability to communicate, expressive more so than receptive. Did identify at times that she knew her words did not make sense. ?? Completed paper and pencil activities to progress sequencing and memory tasks ?? Pt able to write number 1-10 without assist ?? Pt unable to write letters of alphabet without visual cues, noted aphasia with trying to state letters when she was writing them out ?? Pt able to connect dots with letters in ascending order ?? Unable to connect dots with letters in ascending order Vital signs: Vital signs have been stable with interventions and were not monitored. Patient/Family Education: Topic: Benefits of activity Role of OT Safety awareness Learner: patient Method: verbal and demonstration Barriers to Learning: cognitive deficits Outcome: verbalized understanding and returned demonstration Team Communication: With nursing regardng care ASSESSMENT: Pt had increased activity tolerance for therapy this date, with significant improvementin attention and awareness into her situation. She does continue to demonstrate decreased insight into her deficits thus will need ongoing support of her sitter. As well, aphasia continues to be a significant impairment affecting her ability to participate in activities safely. She will benefit from ongoing therapy to progress her performance with self care activities. PLAN: progress independence with self care routine, progress orientation and insight into her abilities for carry over into function, daily orientation, attention and sequencing tasks. [employer] Pager: [phone] Tam Gentile OT, 03/08/2020, 14:24 * Oliva Martinez, [facility]-ANESTHESIOLOGY PHYSICIAN ASSISTANT - 03/08/2020 0821 EDT Speech-Language Pathology Daily and Current Progress Note ANESTHESIOLOGY PHYSICIAN ASSISTANT Diagnosis: Aphasia and oropharyngeal phase dysphagia Medical Diagnosis: Cerebral venous thrombosis and resultant intraparenchymal hemorrhage in the leftfrontotemporal area Date of Onset: 02/14/20 Date of Referral: 03/02/20 Subjective/Objective SUBJECTIVE: 1st session: Oh god. Um, you know, it's been tough. I might be having a medical version of this (jargon). This minute (morning) was good. This minute (morning) I got ready. It doesn't make smack (sense). This is really weird conditions. (johan). I don't know what the (jargon) is. 2nd session: I'm getting a medicadown (medication) at 12. I don't have good teregus (teeth). OBJECTIVE: Date of Service: 03/08/2020 First Session: Start Time: 1030 Total Therapy minutes: 30 minute(s) (30 minutes comm-cog tx) Second Session: Start Time: 1130 Total Therapy minutes: 10 minute(s) (10 minutes swallow tx- had to end session 20 minutes early secondary to patient had to be taken for CT scan) Current Treatment Objectives: Auditory Comprehension: Goal #1: Patient will identify objects in a visual field of 2-3 with >70% accuracy provided moderate cues for attention and information processing. 03/07: After initially reviewing names of items in f-3, patient selected target object in response to verbally presented object name with the following accuacy: Items Unlabeled (57%) Labels Added (83%) Labels Removed (75%) 1. 9 1. 9 1. 9 2. 9 2. 9 2. 9 3. 6/8 3. 9 3. 8 4. 9 4. 6/8 4. 9 5. 6/8 5. 9 6. 6/8 6. 9 7. 9 03/08: Session 1- Patient identifies objects in a visual field of 2 with 90% accuracy provided written word and auditory presentation of the word. Patient identifies objects in a visual field of 3 with 80% accuracy provided written word and auditory presentation of the word. Patient required repetition of each item for field of 3. Goal #2: Patient will answer simple yes/no questions immediately after review with >70% accuracyprovided moderate cues for attention and initiation. 03/07: Session 1: Patient responded to Y/N questions with jargon and some intelligible word related to questions (e.g., It was my father's name in response to Is your last name 'Cindy?'). 03/08: Session 1- Patient responds to simple Y/N questions with 30% accuracy. Errorless learning wasattempted with mixed success. 1. 6- Error: Inaccurate attempt at the task item 2. 6- Error: Inaccurate attempt at the task item 3. 6- Error: Inaccurate attempt at the task item 4. 9- Repeated: Accurate, after instructions are repeated (errorless learning utilized) 5. 6- Error: Inaccurate attempt at the task item (errorless learning attempted) 6. 9- Repeated: Accurate, after instructions are repeated (errorless learning utilized) 7. 6- Error: Inaccurate attempt at the task item (errorless learning attempted) 8. 6- Error: Inaccurate attempt at the task item (errorless learning attempted) 9. 9- Repeated: Accurate, after instructions are repeated (errorless learning utilized) 10. 6- Error: Inaccurate attempt at the task item Goal #3: Patient will follow simple 1-step commands related to functional environment with >70% accuracy provided moderate verbal/tactile/visual cues in order to increase functional integration into environment. ?? Expressive Language: Goal #1: Patient will recite automatic speech tasks given moderate cues with >70% accuracy. 03/08: Session 1- Patient recites automatic speech tasks with the clinician. See results below: 1-10: 100% accuracy following a model The Alphabet: Unable to perform in unison Months of the Years: Attempted to have patient repeat each month after the clinician: November, December, (jargon), (jargon), , June, April medication, June compation, sincation medication,seegus, French, lessonagus Musa, Decemegas Goal #2: Patient will name objects (real or pictured) to confrontation with >70% accuracy provided moderate verbal cues. 03/08: Session 1- Patient names real pictured objects to confrontation in 4 out of 29 trials provided errorless learning and maximum cues from the clinician. Goal #3: Patient will repeat 1-2 syllable functional words with >70% accuracy provided a visual model by the clinician. Reading Comprehension: Goal #1: The patient will identify the written word in a field of 2, given an auditory model with 80% accuracy. Goal #2: The patient will identify the written word to match a given object or picture with 80% accuracy in a field of 3 (presented in a vertical orientation). Written Expression: Goal #1: The patient will write functional words and short phrases related to personal information (e.g., name, address, date of ) with 90% accuracy given mod verbal/visual cues. Swallowing: Goal #1: Patient will masticate and manipulate boluses of regular food (IDDSI Level 7) adequately to safely consume least restrictive diet provided no cues. 03/08: Session 2- Skilled Tx: dysphagia management and counseling Stimulus: IDDSI Level 7- Regular (case cracker) Patient Response: Patient demonstrates slightly decreased bolus manipulation within in the oral cavity, however, she is able to compensate effectively. Minimal anterior labial loss on the R side. Goal #2: Patient will safely ingest diet trials of regular food (IDDSI Level 7) with the ANESTHESIOLOGY PHYSICIAN ASSISTANT with no overt s/sx of penetration/aspiration in order to safely consume least restrictive diet provided nocues. 03/08: Session 2- Skilled Tx: dysphagia management and counseling and compensatory strategy training Stimulus: IDDSI Level 7- Regular (case cracker) Strategies: Removal of distractions Additional Training Completed: None Barriers to Learning: Presence of language impairment Patient Response: No overt s/sx of laryngeal penetration/aspiration noted across 100% of trials. Minimal cues for attention to meal were required. PATIENT/FAMILY EDUCATION: Patient/Family Education: Patient/family education was provided today including: role of Speech-Language Pathology, results of today's assessment, and questions were addressed. Topic: Patient/Family education and training was completed today including: the role of Speech-Language Pathology aphasia questions were addressed. Learner: patient Method of Education: Verbal Barriers to Learning/Education: patient's level of arousal, fatigue, and presence of language impairment Patient: needs further instruction and education Family: No family present. Patient/Family Goals: Patient states I want to get better. Team Communication: Education and demonstration with member of rehab staff to support comprehensionwith single printed words as well as gesture. ?? Assessment /CLINICAL IMPRESSIONS: Ynes White is a female 50 y.o. 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 Today during her first session, Ynes demonstrates improved auditory comprehension of pictured objects from a field of 2 when provided with a written word and auditory presentation. Her accuracy decreases in a field of 3. Auditory comprehension for yes/no questions and sentence level material remains significantly impaired. Errorless learning is attempted today with marginal success. During today's second session, Ynes demonstrates slightly decreased bolus manipulation within in the oral cavity and minimal anterior labial loss on the R side with IDDSI Level 7- Regular, however, she is able to compensate effectively. No overt s/sx of laryngeal penetration/aspiration were noted across 100% of trials. Ynes's second session was cut short secondary to need to transport patient to CT scan. Ynes remains appropriate for 30 min BID sessions based on her level of arousal, fatigue, and engagement. Ynes White also currently presents with severe expressive and receptive aphasia, most consistent with Wernicke's type but with some deviation from typical Wernicke's type presentation. Patient appears to be able to follow some basic 1-step commands effectively provided context, models, slow auditory presentation of information, and tactile cues as needed. Repetition, object naming, word fluency, sentence completion, and responsive speech are all impaired. Ynes demonstrates a favorable response to use of gestures to assist with her auditory comprehension. Expressive language is characterized as fluent but mostly consists of word salad with many instances of jargon, neologisms, andparaphasias with occasional moments of intelligible discourse scattered throughout. Ynes's discourse could also be described as tangential and perseverative. She attempts to utilize gestures to augment her expressive language, but is not always successful. She is also demonstrating breakdowns in reading comprehension at the short sentence level and significant deficits in written expression atthe word level, compounded by impaired auditory comprehension preventing writing to dictation and impaired naming preventing written naming. These deficits impact the patient's ability to functionally communicate her wants, needs, and ideas and hold conversation. She presents with severe impairments in reading comprehension, however, she demonstrates some success with reading comprehension at theword level, which appears to be a relative strength compared to her auditory comprehension. She exhibits significant breakdown in reading comprehension at the short sentence level. Ynes also demonstrates significant deficits in written expression at the single word level. She demonstrates relative strength in copying words and sentences, as well as writing numbers. Per previous ANESTHESIOLOGY PHYSICIAN ASSISTANT note, Ynes White currently presents with a mild oropharyngeal phase dysphagia characterized by slightly reduced bolus manipulation, slightly delayed swallow response, adequate hyo-laryngeal excursion via palpation, and multiple swallows of each bolus. No overt signs/ symptomsof laryngeal penetration/ aspiration were identified. Etiology of dysphagia is neurogenic. CN exam suggests involvement of CN XII (Hypoglossal). Patient demonstrates the following aspiration risk factors: swallowing problems and high risk population for silent aspiration (CVA). Based on patient's oral care, likelihood of presence of aspiration, and immune system status, Ynes remains at slightly increased risk of aspiration at this time ([place], 2002; Óscar et. al, 2005, 2008, 2012). Compensatory strategies of slightly modified textures (Dysphagia 4), small bites/sips, and use of multiple swallows appear effective in decreasing risk of aspiration. Prognosis for improvement in swallow function is judged to be good at this time secondary to anticipated neurologic recovery. Anticipate patient will tolerate a Dysphagia 4 diet level with thin liquids and may progress to a regular diet with skilled 1:1 intervention. ? Based on evaluation to date, it has been determined that the patient demonstrates deficits that impact functioning in daily activities and hinder participation in life situations.??Patient currently requires assistance from others to communicate basic wants and needs and direct her medical care. Ptjessica continue to benefit from her needs being anticipated and simplified information presented to her. Information should be repeated and said in different ways, and augmented with pictures and gestures. The patient is demonstrating strengths in motivation and some intact basic expressive language skills which should be utilized during the patient's plan of care to maximize gains. Contextual factors that may impact the patient's ability to progress toward rehab goals include: severity of language impairment, need for physical assistance, tolerance level for therapy, and pain. Based on patient's tolerance level, it is recommended that patient participate in 30 minute BID sessions initially and build toward 60 minute sessions as tolerated. Given patient's age, independence prior to admission, and social/occupational demands, she would benefit from intensive ANESTHESIOLOGY PHYSICIAN ASSISTANT intervention. Based on the patient's rehab potential, motivation, prior level of function, and the contextual factors, the patient's prognosis is considered good. It is anticip ated that the patient will make functional gains in expressive and receptive language skills with intensive skilled 1:1 speech language pathology services in the inpatient rehabilitation setting. Functional Communication Measures ([employer], 2002). The Functional Communication Measures (FCM???s) are a series of 7 point rating scales, ranging fromleast functional (Level 1) to most functional (Level 7). They have been developed by [employer] to describe different aspects of patient???s functional communication and swallowing abilities over the course of ANESTHESIOLOGY PHYSICIAN ASSISTANT intervention. ?? Spoken Language Comprehension Level 2: With consistent, maximal cues, the individual is able to follow simple directions, respond to simple yes/no questions in context, and respond to simple words orphrases related to personal needs. Spoken Language Expression Level 3: The communication partner must assume responsibility for structuring the communication exchange, and with consistent and moderate cueing, the individual can produce words and phrases that are appropriate and meaningful in context. Reading Level 3: The individual reads single letters and common words, and with consistent moderatecueing, can read some words that are less familiar, longer, and more complex. Writing Level 2: The individual writes single letters and common words with consistent maximal cueing. ?? Swallowing Level 6: Swallowing is safe, and the individual east and drinks independently and may rarely require minimal cueing. The individual usually self-cues when difficulty occurs. May need to avoid specific food items (e.g., popcorn and nuts), or require additional time (due to dysphagia). ?? GOALS: Snf Goals: Projected Functional Communication Measures at discharge: Spoken Language Comprehension Level 4: Individual consistently responds accurately to simple yes/noquestions and occasionally follows simple directions without cues. Moderate contextual support is usually needed to understand complex sentences/messages. The individual is able to understand limited conversations about routine daily activities with familiar communication partners. Spoken Language Expression Level 4: The individual is successfully able to initiate communication using spoken language in simple, structured conversations in routine daily activities with familiar communication partners. The individual usually requires moderate cueing, but is able to demonstrate use of simple sentences (i.e., semantics, syntax, and morphology) and rarely uses complex sentences/messages. Reading Level 4: The individual reads words and phrases related to routine daily activities, and words that are less familiar, longer, and more complex. The individual usually requires moderate cueing to read sentences of approximately 5-7 words. Writing Level 3: The individual writes single letters and common words, and with consistent moderate cueing, can write some words that are less familiar, longer, and more complex. Swallowing Level 7: Individual's ability to eat independently is not limited by swallow function. Swallowing is safe and efficient for all consistencies. Compensatory strategies are effectively used when needed. ?? Short Term Goals: Auditory Comprehension: Goal #1: Patient will identify objects in a visual field of 2-3 with >70% accuracy provided moderate cues for attention and information processing. Goal #2: Patient will answer simple yes/no questions immediately after review with >70% accuracyprovided moderate cues for attention and initiation. Goal #3: Patient will follow simple 1-step commands related to functional environment with >70% accuracy provided moderate verbal/tactile/visual cues in order to increase functional integration into environment. ?? Expressive Language: Goal #1: Patient will recite automatic speech tasks given moderate cues with >70% accuracy. Goal #2: Patient will name objects (real or pictured) to confrontation with >70% accuracy provided moderate verbal cues. Goal #3: Patient will repeat 1-2 syllable functional words with >70% accuracy provided a visual model by the clinician. ?? Reading Comprehension: Goal #1: The patient will identify the written word in a field of 2, given an auditory model with 80% accuracy. Goal #2: The patient will identify the written word to match a given object or picture with 80% accuracy in a field of 3 (presented in a vertical orientation). Written Expression: Goal #1: The patient will write functional words and short phrases related to personal information (e.g., name, address, date of ) with 90% accuracy given mod verbal/visual cues. Swallowing: Goal #1: Patient will masticate and manipulate boluses of regular food (IDDSI Level 7) adequately to safely consume least restrictive diet provided no cues. Goal #2: Patient will safely ingest diet trials of regular food (IDDSI Level 7) with the ANESTHESIOLOGY PHYSICIAN ASSISTANT with no overt s/sx of penetration/aspiration in order to safely consume least restrictive diet provided nocues. ?? Plan RECOMMENDATIONS: Patient will continue to benefit for further ANESTHESIOLOGY PHYSICIAN ASSISTANT intervention in this setting to address dysphagia and aphasia management and intervention needs. ?? Recommend inpatient rehabilitation ANESTHESIOLOGY PHYSICIAN ASSISTANT services: Patient will be seen for a minimum of 5x/week @ 30minutes BID due to current tolerance level. Swallowing Recommendations: Diet: Dysphagia 4 Liquids: IDDSI Level 0- Thin Medications: Medication should be administered crushed with pureed foods or whole with thin liquidsif pt prefers. ?? Precautions: ?? small bites/sips ?? 1 bite at a time ?? complete oral care following each meal ?? Patient needs assist with set up of meals. ?? Patient should eat in a low stimulation environment to increase attention to meal time. ?? When eating, patient should be upright??at 90??degrees as tolerated. ?? Patient may??use a straw when drinking liquids. ?? Oral Care Precautions: Individuals with dysphagia are at increased risk for aspiration. Aspiration occurs when food, liquid, or saliva travels down the airway (to the lungs) instead of down the esophagus (to the stomach). Aspiration can have very serious consequences, including aspiration pneumonia. The mouth contains bacteria that can be dangerous if it enters the lungs and can increase risk of development of aspiration pneumonia. Therefore, it is very important for individuals with dysphagia to follow strict oral care guidelines to reduce the risk of aspirating dangerous oral bacteria. ? Remove any visible debris (pieces of leftover food, etc.) before brushing teeth. ?? Bonanza teeth thoroughly before and after ALL intake (meals, snacks, etc.). ?? [place] tongue from back to front. ?? [place] the roof of your mouth and cheek pockets. ?? Clean mouth thoroughly each morning and at bedtime. ?? Rinse mouth with water after brushing teeth. ?? Floss teeth daily. ?? Mouth wash is NOT a substitute for brushing teeth. ?? Communication Access and Shared Decision Making Recommendations Please support communication access and shared decision making ability by doing the following: ?? Support Comprehension: ?? Have a pen and paper ready when communicating. ?? Please present information slowly and simplify. Augment with drawings, diagrams, gestures and pointing. ?? Ask one question at a time. ?? Have only one person speak at a time. ?? Environmental modifications:? Simplify the environment: ?? Carryover/Discharge??and Healthcare Decision making considerations ?? Will need family support for the successful carryover of discharge recommendations. ?? Currently comprehension of non-contextual information is a barrier Oliva Martinez MS CCC-ANESTHESIOLOGY PHYSICIAN ASSISTANT, MSGERMÁN-ANESTHESIOLOGY PHYSICIAN ASSISTANT 03/08/2020 12:20 * Milli Singh, PT - 03/08/2020 2995 EDT [facility] Rehabilitation Therapy [facility] Physical Therapy Encounter Note Date of Service: 03/08/2020 Subjective/Objective Subjective Pt indicates that she was having head pain this morning but was given pain meds and is now feeling better. Objective Start time: 1100 Total Therapy Minutes: 30 minute(s) Interventions completed today: Post JP=521/60 HR=89 Neuromuscular re-education: Supine<>sit mod I Escobar Balance Scale (BBS)^ 36/56. This test is a 14-item objective measure designed to screen balance in adult populations. Balance is one domain of fall risk. As the score decreases, the patient may exhibit more balance deficits putting them at increased risk for falling. (Jessi, 2008, Maryana, 2004, Dee, 2016) (finishing items that were not completed yesterday) 10.Turn look behind over left/right shoulder 2 11.Turn 360 degrees 2 12.Stool touch 1 13.Standing unsupported one foot in front 1 14.Standing on one leg 2 Total 36/56 Age/gender normative values for community dwelling elders (Margarito, 2002) Age Gender 95% CI 60-69 Male 55-56 60-69 Female 54-56 70-79 Male 52-56 70-79 Female 52-55 80-89 Male 51-54 80-89 Female 49-52 The minimal detectable change (MDC-95%) for patients with acute stroke is 7. (Maloney, 2001, Tiana, 2016) The minimal detectable change (MDC-95%) for patients with chronic stroke is 5. (Debbie, 2012) Standing balance activities working on anticipatory postural control: -tandem standing with min contact A x 1 and intermittent ACTIVITIES SPECIALIST 2 x 30 -feet together with eyes closed x 30 sec Gait Training: Assist: supervision x 1? Device:?? RW Distance: ??150' Condition/task:??overground, tile, open environment Gait deviations:?improved step length with RW as compared to no device, increased toe out angle B, impaired step length Focus of gait training:? increasing ambulation endurance, heel to toe pattern, attention to right Assist:?min contact A x 1 Device:?? none Distance: ??100', 150' Condition/task:??overground, tile, open environment Gait deviations:?occasionally brushing up against objects on R, ??increased toe out angle B, short step length, antalgic gait, decreased stance time on L, decreased foot clearance Focus of gait training:? gait stability without device 2nd Session Time: Start time: 1400 Total Therapy Minutes: 30 minutes Interventions completed today: Vital Signs: Post SN=958/67 TY=991 Therapeutic activities: ?? Locating numbered magnets on the wall, working on attention to the left and right while ambulating. Used RW for this task in order to allow pt to focus on task at hand versus on balance. ?? First round: numbers 1-10 over ~50' distance at eye level. Pt able to locate all but one (which was on her right). Once seated, therapist provided knowledge of results feedback and pt was able to look through the magnets and identify which number she missed. She then went back through the same course and was able to find the one remaining number. ?? Second round: numbers 1-10 over ~50' distance with numbers at high and low heights to increase challenge. Pt able to locate all numbers without cuing from therapist, though did need to backtrack at one point after realizing she missed one (but was able to note that she missed one without cuing). ?? Toilet transfers with RW with supervision x 1 ?? Stand>sit>supine mod I Escobar Balance Score (n/56): 36 Patient/Family Education: Topic: Results of outcome measures Learner: patient Method: verbal Barriers to Learning: cognitive deficits and language - aphasia Outcome: requires assist and needs practice Team Communication: With RN regarding head pain and meds. Pt having CT scan for QUINONES. Assessment/Plan Assessment Pt with good participation in therapeutic activities again on this day. Pt with Escobar score well below age and gender related norms indicating risk of falls at this time. Activity tolerance appears aniket gradually improving though she is still intermittently limited by head pain, LLE pain, and fatigue. Plan Gait training without device (have pt use hand pipe or steam fitter furnace installer before and after, she does reach for objects when not using device). ??Use RW when pt is more fatigued, in pain. Attention to the right Pathfinding Initiate high level brain injury program when appropriate Dynamic balance Stairs Endurance/activity tolerance ?? Primary Therapist: Contact information: Pager: [phone] Milli Singh PT 03/08/2020 12:06 * Alicia Gabriel RD - 03/07/2020 6140 EDT Nutrition Assessment Note: [facility] Alicia Gabriel RD, RD, CD ([facility] Dietitian Phone [phone]) Patient Name: [facility] Admission Date: 03/02/2020 Hospitalization at [facility]: 02/14/20 Rehab Admission Dx: Left-sided nontraumatic intracerebral hemorrhage (HCC-CMS) Reason for Visit: Follow Up BACKGROUND DATA Clinical Summary: Ynes White is a 50 y.o. female admitted to acute rehab with left temporoparietal hemorrhage status post decompressive craniectomy; s/p PEG placement 02/18/20 Past Medical History: Diagnosis Date ??? Left-sided nontraumatic intracerebral hemorrhage (HCC-CMS) 03/02/2020 Status post decompressive hemicraniectomy Interview/Subjective: Spoke with patient briefly at bedside. She was able eat ~1/3 tuna sandwich and drink some milk withlunch today. For breakfast she drank some juice and only ate bites. Patient refused offer of Boost shakes. RN reports that patient complained of severe abdominal discomfort when 1/2 of bolus feeding administered over ~5 minutes and tube feeding was stopped. Patient refused all tube feeding yesterday and ate poorly. Current Nutrition Orders: DIET DYSPHAGIA 4 with thin liquids Oral supplement: none Enteral: Nutren 1.5 at 240 ml 4 times daily after meals and at bedtime; Hold tube feeding if patient eats >50 % meal and please give hs bolus Free water: 120 ml every 6 hours Estimated Nutrition Intake: 03/06/20 PO intake 25-50 % trays No tube feedings administered; 30 ml prosource X 1 given If full tube feedings and prosource administered patient will receive 1560 kcals and 95 g protein Nutrition-Focused Physical Findings: GI: last BM 03/07/20 (loose) Skin: surgical laceration/incision Edema: Trace RLE and LLE Anthropometrics: Height: 170.2 cm (67) Wt Readings from Last 6 Encounters: 03/02/20 84.7 kg (186 lb 11.2 oz) 03/02/20 89.9 kg (198 lb 1.6 oz) 02/14/20 Weight-98.5 kg (217 lbs) BMI: Body mass index is 29.24 kg/m??. Adjusted weight: 73 kg Weight Change: weight loss of 31 lbs over 2.5 weeks, ? Accuracy of weight readings Nutrition-Related Lab Values of Concern: Lab Results Component Value Date/Time HGB 13.2 03/02/2020 06:12 HCT 39.6 03/02/2020 06:12 WBC 6.43 03/02/2020 06:12 NA 134 (L) 03/07/2020 06:50 K 5.1 (H) 03/07/2020 06:50 CO2 24 03/07/2020 06:50 CL 102 03/07/2020 06:50 BUN 26 03/07/2020 06:50 CREATININE 0.57 03/07/2020 06:50 HGBA1C 5.4 02/14/2020 17:48 PHOS 4.6 (H) 03/07/2020 06:50 MG 1.7 03/02/2020 06:12 TRIG 176 02/18/2020 05:44 ALT 17 05/07/2001 11:00 AST 15 05/07/2001 11:00 ALKPHOS 60 05/07/2001 11:00 TBIL 0.3 05/07/2001 11:00 Nutrition-Related Medications: Current Facility-Administered Medications: acetaminophen (TYLENOL) tablet 650 mg oral Q4H PRN amino acids-protein hydrolysate (PRO SOURCE NOCARB) packet 30 mL feeding tube BID aspirin chewable tablet 81 mg oral DAILY bisacodyL (DULCOLAX) suppository 10 mg rectal Q48H PRN calcium carbonate (TUMS) 200 mg calcium (500 mg) per chewable tablet tablet,chewable 1 Tab oral QIDPRN docusate (COLACE) liquid 100 mg oral BID enoxaparin (LOVENOX) injection 70 mg subcutaneous Q12H guaiFENesin tablet 200 mg oral Q6H PRN HYDROmorphone (DILAUDID) tablet 2-4 mg oral Q4H PRN lisinopriL (PRINIVIL) tablet 20 mg oral DAILY melatonin tablet 3 mg oral QHS metoprolol (LOPRESSOR) tablet 25 mg oral BID Multivitamins with minerals + ferrous gluconate (CENTRUM) oral solution 15 mL feeding tube DAILY nicotine (NICODERM CQ) 7 mg/24 hr patch 1 Patch transdermal Q24H nutren 1.5 liquid 240 mL per g tube QID AFTER MEALS & HS ondansetron (ZOFRAN-ODT) disintegrating tablet 4 mg oral Q4H PRN pantoprazole (PROTONIX) tablet 40 mg oral DAILY papain-alpha amylase-cellulase (CLOG ZAPPER) 2-5 mL feeding tube PRN QUEtiapine (SEROQUEL) tablet 50 mg oral QHS senna (SENOKOT) tablet 1 Tab oral BID ASSESSMENT Estimated Daily Nutritional Needs:??using adjusted weight of 73 kg 25-30 (using 73 kg) = 7504-9277 kcals/day 1.2 g/kg protein (using 73 kg) = 88 g protein/day 25 mL/kg fluid (using 73 kg) = 1825 mL fluid/day Patient eating poorly at this time. Note weight loss since acute care admission, unclear if partially related to fluid or scale discrepancies. Supplemental tube feedings being refused due to abdominal discomfort. Uncertain if related to formula vs mechanical issue. Patient appears to tolerate milk to drink, so suspect discomfort not related to milk protein based formula. Could consider running tube feeding at low rate overnight if patient continues to refuse bolus feedings. Phos levels trendingdown. Nutrition Risk Level: High (1) MEDICAL NUTRITION THERAPY PLAN & RECOMMENDATIONS -Monitor patient acceptance/tolerance to tube feeding regimen -If patient with continued poor tolerance to tube feeding regimen, could consider trial of running Nutren 1.5 at 30 ml/hr X 8-10 hours at night VS. Trial of switching formula bolus to Boost Plus to be taken po or via PEG 4 times daily -Weekly weight for trend -RD following plan * Jaden Rutherford MD - 03/07/2020 1026 EDT Physiatry Progress Note Admit Date: 03/02/2020 Hospital Day: LOS: 5 days Date of Service: 03/07/2020 Chief Complaint: Left temporoparietal hemorrhage status post decompressive craniectomy, setting of central venous thrombosis 02/14/2020 Subjective: Remains with expressive and receptive language deficits limiting history. No apparent headache. She has been having some GI discomfort, uncertain if it is related to tube feeds. No tube feeds were administered yesterday. She is able to participate in occupational therapy this morning. Current Facility-Administered Medications: acetaminophen (TYLENOL) tablet 650 mg oral Q4H PRN amino acids-protein hydrolysate (PRO SOURCE NOCARB) packet 30 mL feeding tube BID aspirin chewable tablet 81 mg oral DAILY bisacodyL (DULCOLAX) suppository 10 mg rectal Q48H PRN calcium carbonate (TUMS) 200 mg calcium (500 mg) per chewable tablet tablet,chewable 1 Tab oral QIDPRN docusate (COLACE) liquid 100 mg oral BID enoxaparin (LOVENOX) injection 70 mg subcutaneous Q12H guaiFENesin tablet 200 mg oral Q6H PRN HYDROmorphone (DILAUDID) tablet 2-4 mg oral Q4H PRN lisinopriL (PRINIVIL) tablet 20 mg oral DAILY melatonin tablet 3 mg oral QHS metoprolol (LOPRESSOR) tablet 25 mg oral BID Multivitamins with minerals + ferrous gluconate (CENTRUM) oral solution 15 mL feeding tube DAILY nicotine (NICODERM CQ) 7 mg/24 hr patch 1 Patch transdermal Q24H nutren 1.5 liquid 240 mL per g tube QID AFTER MEALS & HS ondansetron (ZOFRAN-ODT) disintegrating tablet 4 mg oral Q4H PRN pantoprazole (PROTONIX) tablet 40 mg oral DAILY papain-alpha amylase-cellulase (CLOG ZAPPER) 2-5 mL feeding tube PRN QUEtiapine (SEROQUEL) tablet 50 mg oral QHS senna (SENOKOT) tablet 1 Tab oral BID Objective/Physical Exam: VS: Patient Vitals for the past 8 hrs: BP Pulse Resp Temp SpO2 03/07/20 1004 117/65 -- -- -- 95 % 03/07/20 0634 112/66 92 14 36.3 ??C (97.3 ??F) -- Pain: Patient Vitals for the past 8 hrs: Numeric Pain Level (Scale 1-10) Asleep 03/07/20 1004 8 -- 03/07/20 0700 -- Reassessed, sleeping comfortably, RR WNL. 03/07/20 0635 0 Reassessed, sleeping comfortably, RR WNL. 03/07/20 0528 0 Other (Comment) 03/07/20 0508 3 -- 03/07/20 0426 0 Reassessed, sleeping comfortably, RR WNL. 03/07/20 0334 0 Reassessed, sleeping comfortably, RR WNL. 03/07/20 0232 0 Reassessed, sleeping comfortably, RR WNL. Weight: Weight : 84.7 kg (186 lb 11.2 oz) Glucose Readings (last 8 readings): No results for input(s): GLUCOSEFINGE in the last 72 hours. I&O: Intake/Output Summary (Last 24 hours) at 03/07/2020 1026 Last data filed at 03/06/2020 2000 Gross per 24 hour Intake 810 ml Output -- Net 810 ml Exam: Gen: Alert, pleasant, no distress HEENT: Left decompressive hemicraniectomy site is full with ghassan in place and surgical incision.No clear visual field cut. No facial droop. Pharynx is clear. Neck supple. Mucosal membranes are moist Skin: no rashes Cardiac: Cor RRR Pulmonary: clear to auscultation bilaterally Abdomen: normal bowel sounds, soft, nontender to palpation, PEG tube is intact Musculoskeletal: no joint tenderness, deformity or swelling, no muscular tenderness noted, full range of motion without pain Neuro: Expressive greater than receptive aphasia affect: Sleepy Motor: Strength no clear focal weakness, although there may be some relative right lower extremity weakness. Tone normal Reflexes: trace Sensation: No extinction no clear focal sensory loss Cerebellar: no tremors Labs: I have personally reviewed CBC: Lab Results Component Value Date WBC 6.43 03/02/2020 RBC 4.10 03/02/2020 HGB 13.2 03/02/2020 HCT 39.6 03/02/2020 MCV 97 03/02/2020 MCH 32.2 03/02/2020 MCHC 33.3 03/02/2020 PLT 462 (H) 03/02/2020 NEUTROABS 5.03 02/14/2020 BMP: Lab Results Component Value Date NA 134 (L) 03/07/2020 K 5.1 (H) 03/07/2020 CL 102 03/07/2020 CO2 24 03/07/2020 BUN 26 03/07/2020 CREATININE 0.57 03/07/2020 CALCIUM 8.8 02/14/2020 MG 1.7 03/02/2020 PHOS 4.6 (H) 03/07/2020 LABALBU 3.9 05/07/2001 Assessment/Problems: (update problem list daily as appropriate) Patient Active Problem List Diagnosis Date Noted ??? *(H)Left-sided nontraumatic intracerebral hemorrhage ([facility]) 03/02/2020 Priority: Medium Status post decompressive hemicraniectomy ??? Brain herniation ([facility]) 02/17/2020 Priority: Medium ??? Cerebral edema ([facility]) 02/17/2020 Priority: Medium ??? 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 (H)Cerebral venous thrombosis 02/14/2020 Priority: Medium ??? Encounter for insertion or removal of intrauterine contraceptive device 02/12/2020 Priority: Medium ??? Nicotine dependence, unspecified, uncomplicated 02/12/2020 Priority: Medium ??? Perimenopausal 02/12/2020 Priority: Medium ??? Post concussion syndrome 02/12/2020 Priority: Medium ??? Tobacco abuse 12/02/2012 Priority: Medium ??? Chronic low back pain 10/13/2012 Priority: Medium ??? Back pain 09/25/2012 Priority: Medium Plan: 1. Left frontal intraparenchymal hemorrhage: Status post decompressive craniectomy. Patient with residual mild right-sided weakness, significant expressive and receptive aphasia, dysphagia. Full PT, OT, ANESTHESIOLOGY PHYSICIAN ASSISTANT to address mobility, self care communication and swallowing function. 24 hour rehab nursing for self care deficits. If she remains on the sedated side, will request follow- up CT scan of the head. Helmet on when out of bed Dysphagia level 4 diet with thin liquids. 2. 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 Evidence of left IJ, sigmoid and transverse sinuses as well. Now on therapeutic dose Lovenox. Continued follow-up with hematology and thrombosis clinic in 2-4 weeks. Low molecular weight heparin level requested for today. 3. Right upper lobe pulmonary embolism, left upper extremity DVT: Now on therapeutic dose Lovenox. ?? 4. History of anxiety/depression: Monitor clinically. Currently on Seroquel at at bedtime. Considermedical psychology consultation as language deficits allow. She has listed allergies to citalopram and duloxetine. 5. Nutrition: Supplemental Nutren 1.5 4 times daily unless she is taking in greater than 50% of meals. ?? Jaden Rutherford MD 03/07/2020 10:26 * Terenec Fox - 03/07/2020 0818 EDT Speech-Language Pathology Daily and Current Progress Note ANESTHESIOLOGY PHYSICIAN ASSISTANT Diagnosis: Aphasia and oropharyngeal phase dysphagia Medical Diagnosis: Cerebral venous thrombosis and resultant intraparenchymal hemorrhage in the leftfrontotemporal area Date of Onset: 02/14/20 Date of Referral: 03/02/20 Subjective/Objective SUBJECTIVE: 1st session: Everything's off today. Patient indicated she was feeling pain in her head, but participated in reading activities for 10 minutes before requesting that we stop. 2nd session: I'm really out of it. OBJECTIVE: Date of Service: 03/07/2020 First Session: Start Time: 1005 Total Therapy minutes: 25 minute(s) (30 minutes comm-cog tx; session started late due to RN administering medication for head pain.) Second Session: Start Time: 1100 Total Therapy minutes: 30 minute(s) Current Treatment Objectives: Continued Evaluation: Goal #1: The patient will complete the ANESTHESIOLOGY PHYSICIAN ASSISTANT evaluation in the areas of: verbal expression, auditory comprehension, reading comprehension, and written expression, as tolerated by the patient. 03/04/2020: First Session- The Western Aphasia Battery- Revised (WAB-R) was utilized today to evaluate Ynes White's expressive and receptive language skills. See details below: Subtest Raw Score Auditory Verbal Comprehension Auditory Word Recognition 11/60 Sequential Commands 0/80 Auditory Verbal Comprehension Total 17/200 Auditory Verbal Comprehension Score 0.85 Naming & Word Finding Responsive Speech 0/10 Second Session- The Western Aphasia Battery- Revised (WAB-R) was utilized today to evaluate Linnea's expressive and receptive language skills. See details below: Subtest Raw Score Naming & Word Finding Object Naming 0/60 Word Fluency 0/20 Sentence Completion 0/10 Naming & Word Finding Total 0 Naming & Word Finding Score 0 Aphasia Quotient 27.7 Aphasia Type (determined by aphasia quotient) Wernicke's 03/05/2020: Reading Comprehension Battery for Aphasia (RCBA-2) The Reading Comprehension Battery for Aphasia (RCBA-2) (Suzan & Vignesh, 1998) was administered. Results are as follows: Raw Score Percent Correct Comments: Word-Visual: 6 60% Reading aloud characterized by jargon and neologisms, as well as perseveration checkin Word-Auditory: 9 90% Over course of subtests, patient also noted to use a finger and turn her head further to the right for each item. Via interpretation of verbal expression + gesture, ?visual deficits Word- Semantic: 6 60% 03/07/2020: Reading Comprehension: Patient presents with reading comprehension breakdown at the short sentence level with increased breakdown as length and complexity increases. Functional Reading andSentence-Picture subtest of RCBA-2 were trialed with the following results: Raw Score Percent Correct Comments: Functional Readin/1 0% Discontinued due to length/complexity of sentences and instructions Sentence-Picture 12/29 50% First trial was scaffolded and modeled to support auditory instructions. Discontinued secondary to patient indicating that the pain in her head was distracting. Written Expression: Patient presents with severe impairments in written expression that is compounded by her reduced reading and auditory comprehension. She participated in modified tasks from WAB-R Writing subtest: Name: Patient wrote her name with 100% accuracy and legibility. Address: Patient wrote the number of her address and St accurately, however, the street name, apartment, and the town contained multiple letter choice and intrusion errors. Alphabet: Patient continued writing alphabet after clinician model with 2 correct letters (i.e., F and G) before skipping to M, N, and P. Numbers: Patient wrote numbers 1-20 given first two numbers as model and self correction x4. Sentence copy: Patient copied sentence with 1 letter choice error. Writing to dication: Patient was unable to write to dictation due to impaired auditory comprehension. Auditory Comprehension: Goal #1: Patient will identify objects in a visual field of 2-3 with >70% accuracy provided moderate cues for attention and information processing. 03/07: After initially reviewing names of items in f-3, patient selected target object in response to verbally presented object name with the following accuacy: Items Unlabeled (57%) Labels Added (83%) Labels Removed (75%) 1. 9 1. 9 1. 9 2. 9 2. 9 2. 9 3. 6/8 3. 9 3. 8 4. 9 4. 6/8 4. 9 5. 6/8 5. 9 6. 6/8 6. 9 7. 9 Goal #2: Patient will answer simple yes/no questions immediately after review with >70% accuracyprovided moderate cues for attention and initiation. 03/07: Session 1: Patient responded to Y/N questions with jargon and some intelligible word related to questions (e.g., It was my father's name in response to Is your last name 'Cindy?'). Goal #3: Patient will follow simple 1-step commands related to functional environment with >70% accuracy provided moderate verbal/tactile/visual cues in order to increase functional integration into environment. ?? Expressive Language: Goal #1: Patient will recite automatic speech tasks given moderate cues with >70% accuracy. Goal #2: Patient will name objects (real or pictured) to confrontation with >70% accuracy provided moderate verbal cues. Goal #3: Patient will repeat 1-2 syllable functional words with >70% accuracy provided a visual model by the clinician. Reading Comprehension: New Goal #1: The patient will identify the written word in a field of 2, given an auditory model with 80% accuracy. New Goal #2: The patient will identify the written word to match a given object or picture with 80%accuracy in a field of 3 (presented in a vertical orientation). Swallowing: Goal #1: Patient will masticate and manipulate boluses of regular food (IDDSI Level 7) adequately to safely consume least restrictive diet provided no cues. Goal #2: Patient will safely ingest diet trials of regular food (IDDSI Level 7) with the ANESTHESIOLOGY PHYSICIAN ASSISTANT with no overt s/sx of penetration/aspiration in order to safely consume least restrictive diet provided nocues. PATIENT/FAMILY EDUCATION: Patient/Family Education: Patient/family education was provided today including: role of Speech-Language Pathology, results of today's assessment, and questions were addressed. Topic: Patient/Family education and training was completed today including: the role of Speech-Language Pathology results of today's exam/recommendations aphasia questions were addressed. Learner: patient Method of Education: Verbal Barriers to Learning/Education: patient's level of arousal, fatigue, and presence of language impairment Patient: needs further instruction and education Family: No family present. Patient/Family Goals: Patient states I want to get better. Team Communication: Education and demonstration with member of nursing staff to support comprehension with single printed words as well as gesture. ?? Assessment /CLINICAL IMPRESSIONS: Ynes White is a female 50 y.o. 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 Today Ynes continued to participate in ongoing evaluation of her language skills focused on reading comprehension and written expression., demonstrating breakdowns in reading comprehension at the short sentence level and significant deficits in written expression at the word level, compounded by impaired auditory comprehension preventing writing to dictation and impaired naming preventing written naming. Ynes also participated in object identification exercise, benefiting from initial verbal and written labeling of objects with a fadingof the labels to support comprehension. Limited success with answering Y/N questions today, negatively affected by patient's distraction due to pain. She remains appropriate for 30 min BID sessions based on her level of arousal, fatigue, and engagement. Ynes White also currently presents with severe expressive and receptive aphasia, most consistent with Wernicke's type but with some deviation from typical Wernicke's type presentation. Patient appears to be able to follow some basic 1-step commands effectively provided context, models, slow auditory presentation of information, and tactile cues as needed. Repetition, object naming, word fluency, sentence completion, and responsive speech are all impaired. Ynes demonstrates a favorable response to use of gestures to assist with her auditory comprehension. Expressive language is characterized as fluent but mostly consists of word salad with many instances of jargon, neologisms, andparaphasias with occasional moments of intelligible discourse scattered throughout. Ynes's discourse could also be described as tangential and perseverative. She attempts to utilize gestures to augment her expressive language, but is not always successful. These deficits impact the patient's abil ity to functionally communicate her wants, needs, and ideas and hold conversation. She presents with severe impairments in reading comprehension, however, she demonstrates some success with reading comprehension at the word level, which appears to be a relative strength compared to her auditory comp rehension. She exhibits significant breakdown in reading comprehension at the short sentence level.Ynes also demonstrates significant deficits in written expression at the single word level. She demonstrates relative strength in copying words and sentences, as well as writing numbers. Per previous ANESTHESIOLOGY PHYSICIAN ASSISTANT note, Ynes White currently presents with a mild oropharyngeal phase dysphagia characterized by slightly reduced bolus manipulation, slightly delayed swallow response, adequate hyo-laryngeal excursion via palpation, and multiple swallows of each bolus. No overt signs/ symptomsof laryngeal penetration/ aspiration were identified. Etiology of dysphagia is neurogenic. CN exam suggests involvement of CN XII (Hypoglossal). Patient demonstrates the following aspiration risk factors: swallowing problems and high risk population for silent aspiration (CVA). Based on patient's oral care, likelihood of presence of aspiration, and immune system status, Ynes remains at slightly increased risk of aspiration at this time (Gorge, 2002; Óscar et. al, 2005, 2008, 2012). Compensatory strategies of slightly modified textures (Dysphagia 4), small bites/sips, and use of multiple swallows appear effective in decreasing risk of aspiration. Prognosis for improvement in swallow function is judged to be good at this time secondary to anticipated neurologic recovery. Anticipate patient will tolerate a Dysphagia 4 diet level with thin liquids and may progress to a regular diet with skilled 1:1 intervention. ? Based on evaluation to date, it has been determined that the patient demonstrates deficits that impact functioning in daily activities and hinder participation in life situations.??Patient currently requires assistance from others to communicate basic wants and needs and direct her medical care. Ptwill continue to benefit from her needs being anticipated and simplified information presented to her. Information should be repeated and said in different ways, and augmented with pictures and gestures. The patient is demonstrating strengths in motivation and some intact basic expressive language skills which should be utilized during the patient's plan of care to maximize gains. Contextual factors that may impact the patient's ability to progress toward rehab goals include: severity of language impairment, need for physical assistance, tolerance level for therapy, and pain. Based on patient's tolerance level, it is recommended that patient participate in 30 minute BID sessions initially and build toward 60 minute sessions as tolerated. Given patient's age, independence prior to admission, and social/occupational demands, she would benefit from intensive ANESTHESIOLOGY PHYSICIAN ASSISTANT intervention. Based on the patient's rehab potential, motivation, prior level of function, and the contextual factors, the patient's prognosis is considered good. It is anticip ated that the patient will make functional gains in expressive and receptive language skills with intensive skilled 1:1 speech language pathology services in the inpatient rehabilitation setting. Functional Communication Measures ([place] [employer], 2002). The Functional Communication Measures (FCM???s) are a series of 7 point rating scales, ranging fromleast functional (Level 1) to most functional (Level 7). They have been developed by [employer] to describe different aspects of patient???s functional communication and swallowing abilities over the course of ANESTHESIOLOGY PHYSICIAN ASSISTANT intervention. ?? Spoken Language Comprehension Level 2: With consistent, maximal cues, the individual is able to follow simple directions, respond to simple yes/no questions in context, and respond to simple words orphrases related to personal needs. Spoken Language Expression Level 3: The communication partner must assume responsibility for structuring the communication exchange, and with consistent and moderate cueing, the individual can produce words and phrases that are appropriate and meaningful in context. Reading Level 3: The individual reads single letters and common words, and with consistent moderatecueing, can read some words that are less familiar, longer, and more complex. Writing Level 2: The individual writes single letters and common words with consistent maximal cueing. ?? Swallowing Level 6: Swallowing is safe, and the individual east and drinks independently and may rarely require minimal cueing. The individual usually self-cues when difficulty occurs. May need to avoid specific food items (e.g., popcorn and nuts), or require additional time (due to dysphagia). ?? GOALS: Snf Goals: Projected Functional Communication Measures at discharge: Spoken Language Comprehension Level 4: Individual consistently responds accurately to simple yes/noquestions and occasionally follows simple directions without cues. Moderate contextual support is usually needed to understand complex sentences/messages. The individual is able to understand limited conversations about routine daily activities with familiar communication partners. Spoken Language Expression Level 4: The individual is successfully able to initiate communication using spoken language in simple, structured conversations in routine daily activities with familiar communication partners. The individual usually requires moderate cueing, but is able to demonstrate use of simple sentences (i.e., semantics, syntax, and morphology) and rarely uses complex sentences/messages. Reading Level 4: The individual reads words and phrases related to routine daily activities, and words that are less familiar, longer, and more complex. The individual usually requires moderate cueing to read sentences of approximately 5-7 words. Writing Level 3: The individual writes single letters and common words, and with consistent moderate cueing, can write some words that are less familiar, longer, and more complex. Swallowing Level 7: Individual's ability to eat independently is not limited by swallow function. Swallowing is safe and efficient for all consistencies. Compensatory strategies are effectively used when needed. ?? Short Term Goals: Continued Evaluation: Goal #1: The patient will complete the ANESTHESIOLOGY PHYSICIAN ASSISTANT evaluation in the areas of: verbal expression, auditory comprehension, reading comprehension, and written expression, as tolerated by the patient. Goal met - discontinue. ?? Auditory Comprehension: Goal #1: Patient will identify objects in a visual field of 2-3 with >70% accuracy provided moderate cues for attention and information processing. Goal #2: Patient will answer simple yes/no questions immediately after review with >70% accuracyprovided moderate cues for attention and initiation. Goal #3: Patient will follow simple 1-step commands related to functional environment with >70% accuracy provided moderate verbal/tactile/visual cues in order to increase functional integration into environment. ?? Expressive Language: Goal #1: Patient will recite automatic speech tasks given moderate cues with >70% accuracy. Goal #2: Patient will name objects (real or pictured) to confrontation with >70% accuracy provided moderate verbal cues. Goal #3: Patient will repeat 1-2 syllable functional words with >70% accuracy provided a visual model by the clinician. ?? Reading Comprehension: Goal #1: The patient will identify the written word in a field of 2, given an auditory model with 80% accuracy. Goal #2: The patient will identify the written word to match a given object or picture with 80% accuracy in a field of 3 (presented in a vertical orientation). New Target: Written Expression: New Goal #1: The patient will write functional words and short phrases related to personal information (e.g., name, address, date of ) with 90% accuracy given mod verbal/visual cues. Swallowing: Goal #1: Patient will masticate and manipulate boluses of regular food (IDDSI Level 7) adequately to safely consume least restrictive diet provided no cues. Goal #2: Patient will safely ingest diet trials of regular food (IDDSI Level 7) with the ANESTHESIOLOGY PHYSICIAN ASSISTANT with no overt s/sx of penetration/aspiration in order to safely consume least restrictive diet provided nocues. ?? Plan RECOMMENDATIONS: Patient will continue to benefit for further ANESTHESIOLOGY PHYSICIAN ASSISTANT intervention in this setting to address dysphagia and aphasia management and intervention needs. ?? Recommend inpatient rehabilitation ANESTHESIOLOGY PHYSICIAN ASSISTANT services: Patient will be seen for a minimum of 5x/week @ 30minutes BID due to current tolerance level. Swallowing Recommendations: Diet: Dysphagia 4 Liquids: IDDSI Level 0- Thin Medications: Medication should be administered crushed with pureed foods or whole with thin liquidsif pt prefers. ?? Precautions: ?? small bites/sips ?? 1 bite at a time ?? complete oral care following each meal ?? Patient needs assist with set up of meals. ?? Patient should eat in a low stimulation environment to increase attention to meal time. ?? When eating, patient should be upright??at 90??degrees as tolerated. ?? Patient may??use a straw when drinking liquids. ?? Oral Care Precautions: Individuals with dysphagia are at increased risk for aspiration. Aspiration occurs when food, liquid, or saliva travels down the airway (to the lungs) instead of down the esophagus (to the stomach). Aspiration can have very serious consequences, including aspiration pneumonia. The mouth contains bacteria that can be dangerous if it enters the lungs and can increase risk of development of aspiration pneumonia. Therefore, it is very important for individuals with dysphagia to follow strict oral care guidelines to reduce the risk of aspirating dangerous oral bacteria. ? Remove any visible debris (pieces of leftover food, etc.) before brushing teeth. ?? [place] teeth thoroughly before and after ALL intake (meals, snacks, etc.). ?? [place] tongue from back to front. ?? [place] the roof of your mouth and cheek pockets. ?? Clean mouth thoroughly each morning and at bedtime. ?? Rinse mouth with water after brushing teeth. ?? Floss teeth daily. ?? Mouth wash is NOT a substitute for brushing teeth. ?? Communication Access and Shared Decision Making Recommendations Please support communication access and shared decision making ability by doing the following: ?? Support Comprehension: ?? Have a pen and paper ready when communicating. ?? Please present information slowly and simplify. Augment with drawings, diagrams, gestures and pointing. ?? Ask one question at a time. ?? Have only one person speak at a time. ?? Environmental modifications:? Simplify the environment: ?? Carryover/Discharge??and Healthcare Decision making considerations ?? Will need family support for the successful carryover of discharge recommendations. ?? Currently comprehension of non-contextual information is a barrier Terence Fox MS, CCC-ANESTHESIOLOGY PHYSICIAN ASSISTANT 03/07/2020 15:16 * Tam Gentile, OT - 03/07/2020 [id number] EDT [facility] Rehabilitation Therapy Inpatient Rehabilitation [facility] Occupational Therapy Encounter Note Date of Service: 03/07/2020 SUBJECTIVE: Pt report she had a rough night and did not sleep well. Would like to eat breakfast before getting washed up. PT reports she does not like being here, has a hard time with understanding medication management. OBJECTIVE: Start time: 829 Treatment time: 1489-3804 Total Therapy Minutes: 60 minute(s) Interventions included: Self-Care/Home Management 3 units Completed self care routine this date to progress pt's functional safety and independence with activities of daily living with adaptive equipment as needed ?? Due to pt request to eat, set up tray for self feeding, cues to locate all items on the tray, started with all items on the right, cues to scan to left for milk and sugar for coffee. Pt started todrink orange juice with spoon. Cues to identify straw and then use that for drinking ?? Supine to sit with supervision, tolerated sit edge of bed for 10 minutes for feeding task ?? toileting activity completed with minimal contact guard assist for safety with transfers and mobility. Pt impulsive due to urgency to void. Cues to slow down and pace tasks, hygiene and clothing management with supervision for safety. ?? Completed bathing sink side, cues for set up and to identify items for task. Pt able to initiateand wash self seated. ?? Dressing activity mostly in sitting due to pt reports of pain and feeling nauseous. Donned doffed shirt with assist for set up. Donned and doffed pants with cues for task, recall for underwear as pt forgot she was wearing them. Supervision and cues for safety ?? Grooming task completed in sitting at sink, cues to locate toothbrush, pt alb eot sequence and carry out task with supervision for safety Therapeutic activities 1 unit Completed handwriting activity at table top to progress orientation, problem solving and sequencingtasks ?? Pt able to write name independently ?? Cued to recall date, assisted pt with locating this on board, cues to identify month, date and day. Pt unable to write it on own, max assist for copying date ?? Pt able to write numbers 1-10 with cues only, 3 errors adding a letters into sequence ?? Pt provided with written numbers for copying, able to copy with only 1 error ?? Pt cued to write alphabet, able to write out A-E independently, unable to continue Vital signs: Vital signs have been stable with interventions and were not monitored. Patient/Family Education: Topic: Benefits of activity Role of OT Safety awareness Learner: patient Method: verbal and demonstration Barriers to Learning: cognitive deficits and aphasia Outcome: reinforcement needed / plan: Visual cues for increased understanding due to aphasia Team Communication: With nursing regarding plan of care ASSESSMENT: Pt had fair tolerance for therapy this date, pain and nausea continue to be barriers tofull tolerance of session. She did increase participation with self care routine, with frequent breaks, but does require cues and assist for safety due to impaired cognition and decreased safety aware ness. She will benefit from ongoing therapy with high repetition of morning routine to progress safety and independence with performance for progression to return home with support. PLAN: progress independence with self care routine, sequencing tasks, attention and problem solvingactivities Pager: [phone] Tam Gentile OT, 03/07/2020, 8:05 * Milli Singh, PT - 03/07/2020 [id number] EDT [facility] Rehabilitation Therapy Inpatient Rehabilitation [facility] Physical Therapy Encounter Note Date of Service: 03/07/2020 Subjective/Objective Subjective Well I want to do. Is this because of the (word salad) pointing to her incision on her head Pt endorses L thigh pain and numbness In PM pt with severe head pain toward end of session, with rapid breathing and gripping head stating I'm going to throw up. This resolved with laying down. RN aware. Objective Start time: 1130 Total Therapy Minutes: 30 minute(s) Interventions completed today: Vital Signs: Post treatment BP=96/63 HR=89 SpO2=96% on RA Therapeutic activities: Supine<>sit with mod I, HOB elevated, rails. 5 Times Sit to Stand Test^: 32 seconds. This test is a measure of functional lower limb muscle strength that may also be useful in quantifying functional change of transitional movements. Age normative values (Kirsten, 2007) Age Range for age norms 2 standard deviations around the mean (seconds) 19-49 3.6 - 8.8 50-59 4.1 - 10.1 60-69 1.9 - 14.3 70-76105.7 3.8 - 16.2 80-89 3.8 - 17.4 Gait Training: Six Minute Walk Test^ (meters) 120.7 meters. This test assesses distance walked over 6 minutes as asub-maximal test of aerobic capacity/endurance. Completed with RW. Age/gender normative values (Prasanna, 2001) Age Gender Range for age norms 2 standard deviations around the mean (meters) Range for age norms 2 standard deviations around the mean (feet) 20-40 Male [phone] Female [phone] 41-60 Male [phone] Female [phone] (Kirsten, 2007) Age Gender 95% CI (meters) 95% CI (feet) 60-69 Male [phone] Female [phone] 70-79 Male [phone] Female [phone] 80-89 Male [phone] Female [phone] The minimal detectable change (MDC) for patients with acute stroke is 54 meters or 177 feet. (Iglesia,2008) The minimal detectable change (MDC) for patients with chronic stroke is 36.6 meters or 120 feet or 13% improved from baseline measure. (Nichol, 2005) Assist: min contact A x 1 to supervision x1 Device:?? RW Distance: ??230' (after seated rest break following 6MWT documented above) Condition/task:??overground, tile, open environment Gait deviations:??occasionally brushing up against objects on R, ??increased toe out angle B, shortstep length, antalgic gait, decreased stance time on L, decreased foot clearance Focus of gait training:? increasing ambulation endurance, heel to toe pattern, attention to the right 2nd Session Time: Start time: 1400 Total Therapy Minutes: 30 minutes Interventions completed today: Vital Signs: Post SR=872/61 HR=89 Neuromuscular re-education: Supine<>sit with mod I Escobar Balance Scale (BBS)^ This test is a 14-item objective measure designed to screen balance in adult populations. Balance is one domain of fall risk. As the score decreases, the patient may exhibitmore balance deficits putting them at increased risk for falling. (Rosenberg, 2008, Maryana, 2004, Dee, 2016) 1. Sitting to standing 4 2. Standing unsupported 3 3. Sitting unsupported feet on floor 4 4. Standing to sitting 3 5. Transfers 2 6. Standing unsupported with eyes closed 3 7. Standing unsupported with feet together 3 8. Reaching forward with outstretched arm 3 9. 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 RN advised and pain meds administered. Gait Training: Assist: supervision x 1? Device:?? RW Distance: ??2 x 75' Condition/task:??overground, tile, open environment Gait deviations:?same as above Focus of gait training:? increasing ambulation endurance, pacing, deep breathing 5-Time [id number] (sec): 32 Patient/Family Education: Topic: R USN Learner: patient Method: verbal Barriers to Learning: cognitive deficits and expressive and receptive aphasia Outcome: requires assist and needs practice Team Communication: with OT regarding LLE pain this AM Assessment/Plan Assessment Pt with dramatically improved participation this morning as compared to previous PT sessions. Pt with increased alertness, keeping eyes open, making eye contact with therapist and decreased indications of pain, though pt does fatigue quickly and demonstrates declining ability to participate after about 20 minutes. QUINONES exacerbated during Escobar today in gym. Noise and lighting may have been a contributing factor. Will attempt to complete in quiet treatment room tomorrow. 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 You know what I mean? OBJECTIVE: Date of Service: 03/05/2020 First Session: Start Time: 1100 Total Therapy minutes: 30 minute(s) (30 minutes comm-cog tx) 03/05/20: Patient seen at bedside this date. Per 1:1 attendant, patient with some nausea this morning. Patient appeared to indicate headache pain however agreeable to participating in bed and appearedpleased with her performance at the end of ANESTHESIOLOGY PHYSICIAN ASSISTANT session. Current Treatment Objectives: Continued Evaluation: Goal #1: The patient will complete the ANESTHESIOLOGY PHYSICIAN ASSISTANT evaluation in the areas of: verbal expression, auditory comprehension, reading comprehension, and written expression, as tolerated by the patient. 03/04/2020: First Session- The Western Aphasia Battery- Revised (WAB-R) was utilized today to evaluate Ynes White's expressive and receptive language skills. See details below: Subtest Raw Score Auditory Verbal Comprehension Auditory Word Recognition 11/60 Sequential Commands 0/80 Auditory Verbal Comprehension Total 17/200 Auditory Verbal Comprehension Score 0.85 Naming & Word Finding Responsive Speech 0/10 Second Session- The Western Aphasia Battery- Revised (WAB-R) was utilized today to evaluate Linnea's expressive and receptive language skills. See details below: Subtest Raw Score Naming & Word Finding Object Naming 0/60 Word Fluency 0/20 Sentence Completion 0/10 Naming & Word Finding Total 0 Naming & Word Finding Score 0 Aphasia Quotient 27.7 Aphasia Type (determined by aphasia quotient) Wernicke's 03/05/2020: Reading Comprehension Battery for Aphasia (RCBA-2) The Reading Comprehension Battery for Aphasia (RCBA-2) (Suzan & Vignesh, 1998) was administered. Results are as follows: Raw Score Percent Correct Comments: Word-Visual: 6 60% Reading aloud characterized by jargon and neologisms, as well as perseveration checkin Word-Auditory: 9 90% Over course of subtests, patient also noted to use a finger and turn her head further to the right for each item. Via interpretation of verbal expression + gesture, ?visual deficits Word- Semantic: 6 60% Auditory Comprehension: Goal #1: Patient will identify objects in a visual field of 2-3 with >70% accuracy provided moderate cues for attention and information processing. Goal #2: Patient will answer simple yes/no questions immediately after review with >70% accuracyprovided moderate cues for attention and initiation. Goal #3: Patient will follow simple 1-step commands related to functional environment with >70% accuracy provided moderate verbal/tactile/visual cues in order to increase functional integration into environment. ?? Expressive Language: Goal #1: Patient will recite automatic speech tasks given moderate cues with >70% accuracy. Goal #2: Patient will name objects (real or pictured) to confrontation with >70% accuracy provided moderate verbal cues. Goal #3: Patient will repeat 1-2 syllable functional words with >70% accuracy provided a visual model by the clinician. Swallowing: Goal #1: Patient will masticate and manipulate boluses of regular food (IDDSI Level 7) adequately to safely consume least restrictive diet provided no cues. Goal #2: Patient will safely ingest diet trials of regular food (IDDSI Level 7) with the ANESTHESIOLOGY PHYSICIAN ASSISTANT with no overt s/sx of penetration/aspiration in order to safely consume least restrictive diet provided nocues. PATIENT/FAMILY EDUCATION: Patient/Family Education: Patient/family education was provided today including: role of Speech-Language Pathology, results of today's assessment, and questions were addressed. Topic: Patient/Family education and training was completed today including the role of Speech-Language Pathology, results of today's exam/recommendations, rehab goals and questions were addressed. Learner: patient Method of Education: Verbal Barriers to Learning/Education: patient's level of arousal, fatigue, and presence of language impairment Patient: needs further instruction and education Family: No family present. Patient/Family Goals: Patient states today I want to get better. ?? Assessment /CLINICAL IMPRESSIONS: Ynes White is a female 50 y.o. 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 Today Ynes continued to participate in ongoing evaluation of her language skills focused on reading comprehension. She demonstrated some success with reading comprehension at the word level, which appears to be a relative strength compared to her auditory comprehension. Anticipate that she will benefit from augmenting of auditory instructions and information in writing (single words). Patient indicated (and demonstrated) some head turning tothe right when reading words and question impact of a right visual field impairment, difficult to de termine at this time. ANESTHESIOLOGY PHYSICIAN ASSISTANT continues to assume responsibility of interpreting the patient's message today for the majority of the session, although patient did provide context clues that assisted ANESTHESIOLOGY PHYSICIAN ASSISTANT in interpretation of message. Further evaluation of written expression is warranted. She remains appropriate for 30 min BID sessions based on her level of arousal, fatigue, and engagement. ?? Per previous ANESTHESIOLOGY PHYSICIAN ASSISTANT note, Ynes White currently presents with a mild oropharyngeal phase dysphagia characterized by slightly reduced bolus manipulation, slightly delayed swallow response, adequate hyo-laryngeal excursion via palpation, and multiple swallows of each bolus. No overt signs/ symptomsof laryngeal penetration/ aspiration were identified. Etiology of dysphagia is neurogenic. CN exam suggests involvement of CN XII (Hypoglossal). Patient demonstrates the following aspiration risk factors: swallowing problems and high risk population for silent aspiration (CVA). Based on patient's oral care, likelihood of presence of aspiration, and immune system status, Ynes remains at slightly increased risk of aspiration at this time ([place], 2002; Óscar et. al, 2005, 2008, 2012). Compensatory strategies of slightly modified textures (Dysphagia 4), small bites/sips, and use of multiple swallows appear effective in decreasing risk of aspiration. Prognosis for improvement in swallow function is judged to be good at this time secondary to anticipated neurologic recovery. Anticipate patient will tolerate a Dysphagia 4 diet level with thin liquids and may progress to a regular diet with skilled 1:1 intervention. ?? Ynes White also currently presents with severe expressive and receptive aphasia, most consistent with Wernicke's type but with some deviation from typical Wernicke's type presentation. Patient appears to be able to follow some basic 1-step commands effectively provided context, models, slow auditory presentation of information, and tactile cues as needed. Repetition, object naming, word fluency, sentence completion, and responsive speech are all impaired. Ynes demonstrates a favorable response to use of gestures to assist with her auditory comprehension. Expressive language is characterized as fluent but mostly consists of word salad with many instances of jargon, neologisms, andparaphasias with occasional moments of intelligible discourse scattered throughout. Ynes's discourse could also be described as tangential and perseverative. She attempts to utilize gestures to augment her expressive language, but is not always successful. These deficits impact the patient's abil ity to functionally communicate her wants, needs, and ideas and hold conversation. ?? Based on evaluation to date, it has been determined that the patient demonstrates deficits that impact functioning in daily activities and hinder participation in life situations.??Patient currently requires assistance from others to communicate basic wants and needs and direct her medical care. Ptwill continue to benefit from her needs being anticipated and simplified information presented to her. Information should be repeated and said in different ways, and augmented with pictures and gestures. The patient is demonstrating strengths in motivation and some intact basic expressive language skills which should be utilized during the patient's plan of care to maximize gains. Contextual factors that may impact the patient's ability to progress toward rehab goals include: severity of language impairment, need for physical assistance, tolerance level for therapy, and pain. Based on patient's tolerance level, it is recommended that patient participate in 30 minute BID sessions initially and build toward 60 minute sessions as tolerated. Given patient's age, independence prior to admission, and social/occupational demands, she would benefit from intensive ANESTHESIOLOGY PHYSICIAN ASSISTANT intervention. Based on the patient's rehab potential, motivation, prior level of function, and the contextual factors, the patient's prognosis is considered good. It is anticip ated that the patient will make functional gains in expressive and receptive language skills with intensive skilled 1:1 speech language pathology services in the inpatient rehabilitation setting. Functional Communication Measures ([place] [employer], 2002). The Functional Communication Measures (FCM???s) are a series of 7 point rating scales, ranging fromleast functional (Level 1) to most functional (Level 7). They have been developed by [employer] to describe different aspects of patient???s functional communication and swallowing abilities over the course of ANESTHESIOLOGY PHYSICIAN ASSISTANT intervention. ?? Spoken Language Comprehension Level 2: With consistent, maximal cues, the individual is able to follow simple directions, respond to simple yes/no questions in context, and respond to simple words orphrases related to personal needs. ?? Spoken Language Expression Level 3: The communication partner must assume responsibility for structuring the communication exchange, and with consistent and moderate cueing, the individual can produce words and phrases that are appropriate and meaningful in context. ?? Swallowing Level 6: Swallowing is safe, and the individual east and drinks independently and may rarely require minimal cueing. The individual usually self-cues when difficulty occurs. May need to avoid specific food items (e.g., popcorn and nuts), or require additional time (due to dysphagia). ?? GOALS: Psychiatric Nurse Goals: Projected Functional Communication Measures at discharge: Spoken Language Comprehension Level 4: Individual consistently responds accurately to simple yes/noquestions and occasionally follows simple directions without cues. Moderate contextual support is usually needed to understand complex sentences/messages. The individual is able to understand limited conversations about routine daily activities with familiar communication partners. ?? Spoken Language Expression Level 4: The individual is successfully able to initiate communication using spoken language in simple, structured conversations in routine daily activities with familiar communication partners. The individual usually requires moderate cueing, but is able to demonstrate use of simple sentences (i.e., semantics, syntax, and morphology) and rarely uses complex sentences/messages. ?? Swallowing Level 7: Individual's ability to eat independently is not limited by swallow function. Swallowing is safe and efficient for all consistencies. Compensatory strategies are effectively used when needed. ?? Short Term Goals: Continued Evaluation: Goal #1: The patient will complete the ANESTHESIOLOGY PHYSICIAN ASSISTANT evaluation in the areas of: verbal expression, auditory comprehension, reading comprehension, and written expression, as tolerated by the patient. ?? Auditory Comprehension: Goal #1: Patient will identify objects in a visual field of 2-3 with >70% accuracy provided moderate cues for attention and information processing. Goal #2: Patient will answer simple yes/no questions immediately after review with >70% accuracyprovided moderate cues for attention and initiation. Goal #3: Patient will follow simple 1-step commands related to functional environment with >70% accuracy provided moderate verbal/tactile/visual cues in order to increase functional integration into environment. ?? Expressive Language: Goal #1: Patient will recite automatic speech tasks given moderate cues with >70% accuracy. Goal #2: Patient will name objects (real or pictured) to confrontation with >70% accuracy provided moderate verbal cues. Goal #3: Patient will repeat 1-2 syllable functional words with >70% accuracy provided a visual model by the clinician. ?? New Target: Reading Comprehension: New Goal #1: The patient will identify the written word in a field of 2, given an auditory model with 80% accuracy. New Goal #2: The patient will identify the written word to match a given object or picture with 80%accuracy in a field of 3 (presented in a vertical orientation). Swallowing: Goal #1: Patient will masticate and manipulate boluses of regular food (IDDSI Level 7) adequately to safely consume least restrictive diet provided no cues. Goal #2: Patient will safely ingest diet trials of regular food (IDDSI Level 7) with the ANESTHESIOLOGY PHYSICIAN ASSISTANT with no overt s/sx of penetration/aspiration in order to safely consume least restrictive diet provided nocues. ?? Plan RECOMMENDATIONS: Patient will continue to benefit for further ANESTHESIOLOGY PHYSICIAN ASSISTANT intervention in this setting to address dysphagia and aphasia management and intervention needs. ?? Recommend inpatient rehabilitation ANESTHESIOLOGY PHYSICIAN ASSISTANT services: Patient will be seen for a minimum of 5x/week @ 30minutes BID due to current tolerance level. Swallowing Recommendations: Diet: Dysphagia 4 Liquids: IDDSI Level 0- Thin Medications: Medication should be administered crushed with pureed foods or whole with thin liquidsif pt prefers. ?? Precautions: ?? small bites/sips ?? 1 bite at a time ?? complete oral care following each meal ?? Patient needs assist with set up of meals. ?? Patient should eat in a low stimulation environment to increase attention to meal time. ?? When eating, patient should be upright??at 90??degrees as tolerated. ?? Patient may??use a straw when drinking liquids. ?? Oral Care Precautions: Individuals with dysphagia are at increased risk for aspiration. Aspiration occurs when food, liquid, or saliva travels down the airway (to the lungs) instead of down the esophagus (to the stomach). Aspiration can have very serious consequences, including aspiration pneumonia. The mouth contains bacteria that can be dangerous if it enters the lungs and can increase risk of development of aspiration pneumonia. Therefore, it is very important for individuals with dysphagia to follow strict oral care guidelines to reduce the risk of aspirating dangerous oral bacteria. ? Remove any visible debris (pieces of leftover food, etc.) before brushing teeth. ?? [place] teeth thoroughly before and after ALL intake (meals, snacks, etc.). ?? [place] tongue from back to front. ?? [place] the roof of your mouth and cheek pockets. ?? Clean mouth thoroughly each morning and at bedtime. ?? Rinse mouth with water after brushing teeth. ?? Floss teeth daily. ?? Mouth wash is NOT a substitute for brushing teeth. ?? Communication Access and Shared Decision Making Recommendations Please support communication access and shared decision making ability by doing the following: ?? Support Comprehension: ?? Have a pen and paper ready when communicating. ?? Please present information slowly and simplify. Augment with drawings, diagrams, gestures and pointing. ?? Ask one question at a time. ?? Have only one person speak at a time. ?? Environmental modifications:? Simplify the environment: ?? Carryover/Discharge??and Healthcare Decision making considerations ?? Will need family support for the successful carryover of discharge recommendations. ?? Currently comprehension of non-contextual information is a barrier ERIKA Moreira 03/05/2020 10:23 * Milli Singh, PT - 03/05/2020 9731 EDT [facility] Rehabilitation Therapy [facility]patient [facility] Physical Therapy Encounter Note Date of Service: 03/05/2020 Subjective/Objective Subjective Pt seemingly agitated at being woken up by PT for AM session. Unhappy with multiple interruptions throughout the day for therapy, meds, vitals etc. Indicates ongoing abdominal pain and burping. Per nursing pt had small amount of emesis after tube feed. In PM, RN notes that pt had another episode of emesis after lunchtime tube feeding. Pt in bed stating that she can't get up. Pt gagging into emesis bag while talking to therapist. Objective Start time: 1000 Total Therapy Minutes: 20 minute(s) Interventions completed today: Supine<>sit with mod I, flat bed, no rails Gait Training: Six Minute Walk Test^ (meters) 18.29 meters. This test assesses distance walked over 6 minutes as asub-maximal test of aerobic capacity/endurance. Age/gender normative values (Prasanna, 2001) Age Gender Range for age norms 2 standard deviations around the mean (meters) Range for age norms 2 standard deviations around the mean (feet) 20-40 Male [phone] Female [phone] 41-60 Male [phone] Female [phone] (Kirsten, 2007) Age Gender 95% CI (meters) 95% CI (feet) 60-69 Male [phone] Female [phone] 70-79 Male [phone] Female [phone] 80-89 Male [phone] Female [phone] The minimal detectable change (MDC) for patients with acute stroke is 54 meters or 177 feet. (Iglesia,2008) The minimal detectable change (MDC) for patients with chronic stroke is 36.6 meters or 120 feet or 13% improved from baseline measure. (Nichol, 2005) Assist: min A x 1? Device:?? none but pt reaching for wall, railing, sink Distance: ??60' (in addition to attempted 6MWT above) Condition/task:??overground, tile, open environment Gait deviations:?impaired gait speed, shuffling pattern, increased toe out angle B, decreased foot clearance, increased DL stance time, short step length, pt reaching for objects to hang onto Focus of gait training:? upright posture, deep breathing during ambulation 2nd Session Time: Start time: 1330 Total Therapy Minutes: 0 minutes Interventions completed today: No interventions completed this PM due to pt having just thrown up and gagging into emesis bag on arrival. 6 Min Walk - Distance (m): 18.29 meters Patient/Family Education: Topic: Rest day tomorrow, resumption of therapy on Saturday Learner: patient Method: verbal Barriers to Learning: cognitive deficits and language/aphasia Outcome: requires assist and needs practice Team Communication: with RN regarding pt abdominal pain, per RN pt with a small about of emesis this AM. Assessment/Plan Assessment Participation limited by emesis, pain, fatigue, pt irritability today. Attempted 6MWT however participation was limited by factors listed above. Will benefit from reassessment when pt is feeling better and more participatory for more accurate indicator of endurance. 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 Reassess 6MWT when pt is more participatory Escobar 5x sit to stand Initiate high level brain injury program when appropriate Primary Therapist: Contact information: Pager: [phone] Milli Singh PT 03/05/2020 14:09 * Tam Gentile, OT - 03/05/2020 0728 EDT [facility] Rehabilitation Therapy Inpatient Rehabilitation [facility] Occupational Therapy Encounter Note Date of Service: 03/05/2020 SUBJECTIVE: Pt reports she is feeling awful with nausea and head pain. She feels like she is going to throw up and would like to wait on therapy a bit. Following some rest and some support she reports she is feeling confused and doesn't like it. 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 OBJECTIVE: Session 1 Start time: 829 Treatment time: 2225-7927 Total Therapy Minutes: 60 minute(s) Interventions included: Self-Care/Home Management 2 units The focus of this activity was on progressing pt's safety and independence with functional mobility, sitting balance and activity tolerance in preparation for BADL tasks ?? Bed mobility with supervision for safety ?? Tolerated edge of bed sit for 5 minutes, report of nausea, cues for pacing tasks ?? Assist to kathleen helmet and gait belt ?? Ambulated to sink with minimal assist for safety ?? Tolerated stand at sink for 5 minutes for hygiene and grooming tasks, pt requested to sit due tonausea. Cues for sequencing grooming tasks, rinsing mouth and washing face ?? Ambulated back to bed, minimal assist for safety, some impulsivity noted as she approached the bed, cues to safely transfer as pt initiated transfer with decreased safety Therapeutic Activities 2 units To progress her orientation to person, place, time and situation, completed the following; ?? Discussed where she is, reports she is in a hospital but doesn't remember everything that happened. Reviewed basics of medical situation with pt reporting some understanding ?? discussed date and orientation to time, use of calendar to review time line. Pt initially resistant and not rececptive to education, cues for day/month/year ?? Complete direction following activity with pt to assess and progress ability to follow simple directions. Pt with greater than 50% with one step with visual cues, less success with verbal cues, suspect due to aphasia ?? Unable to follow 2 step commands with visual or verbal cues Session 2 Start time: 7215-5001 Treatment time: 9601-4639 Total Therapy Minutes: 30 minute(s) Interventions included: Therapeutic activities 2 units Barrel Raiser Strength^: This test measures strength of a person's personnel and payroll technician. Average Barrel Raiser Strength 03/05/2020 Right (pounds) 21.67 Left (pounds) 31.33 Age/gender based healthy normative values (Kirsten, 2006) Female 95% CI (pounds) 95% CI (pounds) Age Right Left 50 - 54 58.8 - 77.5 52.9 - 73.9 Due to pt expressing concerns about what happened, led discussion on her medical situation, basic ideas of what happened, and reviewed precautions with pt reporting some understanding. Able to relay back some details like to wear helmet and brain injury, but maximal difficutly with greater details. Completed handwriting activity ?? Able to write name from memory ?? Able to write numbers 1-10 with success once first 2 numbers were written ?? Pt unable to write alphabet, even with first 3 letters written. Maximal difficulty with sequencing letters, pt aware and frustrated by this difficulty ?? Pt unable to write numbers from 10-1 even with cues for starting first 2 numbers Vital signs: Vital signs were monitored and were stable throughout occupational therapy session. Patient/Family Education: Topic: Benefits of activity Role of OT Safety awareness Learner: patient Method: verbal and demonstration Barriers to Learning: cognitive deficits Outcome: verbalized understanding and returned demonstration Team Communication: With nursing regarding care this date ASSESSMENT: Pt had limited tolerance for therapy initially due to nausea and reports of head pain. Despite this, she was able to tolerate graded activities with rest breaks, demonstrating willingnessdespite feeling poorly. Aphasia and apraxia do significantly affect her overall performance with activities, but with some visual cues, she is able to demonstrate increased success. She will benefit from ongoing therapy to continue to address and progress these skills to return to independence withself care activities. PLAN: basic ADLs with visual cues for sequencing, copying activities, sequencing tasks, simple direction following activities with cues as needed, BITs, trails if able Pager: [phone] Tam Gentile OT, 03/05/2020, 12:05 * Jaden Rutherford MD - 03/04/2020 1052 EDT Physiatry Progress Note Admit Date: 03/02/2020 Hospital Day: LOS: 2 days Date of Service: 03/04/2020 Chief Complaint: Left temporoparietal hemorrhage status post decompressive craniectomy, setting of central venous thrombosis 02/14/2020 Subjective: Remains with expressive and receptive language deficits limiting history. Increased headache last night, difficult to assess her degree of headache this morning. She is indicating some mild GI discomfort. Nursing tells me she does not like anything being administered through her gastrostomy tube. She is eating less than 25% of meals. Current Facility-Administered Medications: acetaminophen (TYLENOL) tablet 650 mg oral Q4H PRN amino acids-protein hydrolysate (PRO SOURCE NOCARB) packet 60 mL feeding tube BID aspirin chewable tablet 81 mg oral DAILY bisacodyL (DULCOLAX) suppository 10 mg rectal Q48H PRN calcium carbonate (TUMS) 200 mg calcium (500 mg) per chewable tablet tablet,chewable 1 Tab oral QIDPRN docusate (COLACE) liquid 100 mg oral BID enoxaparin (LOVENOX) injection 70 mg subcutaneous Q12H guaiFENesin tablet 200 mg oral Q6H PRN HYDROmorphone (DILAUDID) tablet 2-4 mg oral Q4H PRN lisinopriL (PRINIVIL) tablet 20 mg oral DAILY melatonin tablet 3 mg oral QHS metoprolol (LOPRESSOR) tablet 25 mg oral BID Multivitamins with minerals + ferrous gluconate (CENTRUM) oral solution 15 mL feeding tube DAILY nicotine (NICODERM CQ) 7 mg/24 hr patch 1 Patch transdermal Q24H nutren 1.5 liquid 240 mL per g tube TID WC pantoprazole (PROTONIX) tablet 40 mg oral DAILY papain-alpha amylase-cellulase (CLOG ZAPPER) 2-5 mL feeding tube PRN QUEtiapine (SEROQUEL) tablet 50 mg oral QHS senna (SENOKOT) tablet 1 Tab oral BID Objective/Physical Exam: VS: Patient Vitals for the past 8 hrs: BP Pulse Resp Temp 03/04/20 0805 115/74 101 -- -- 03/04/20 0645 107/64 105 16 35.9 ??C (96.6 ??F) Pain: Patient Vitals for the past 8 hrs: Numeric Pain Level (Scale 1-10) 03/04/20 0805 4 Weight: Weight : 84.7 kg (186 lb 11.2 oz) Glucose Readings (last 8 readings): No results for input(s): GLUCOSEFINGE in the last 72 hours. I&O: Intake/Output Summary (Last 24 hours) at 03/04/2020 1052 Last data filed at 03/04/2020 0830 Gross per 24 hour Intake 90 ml Output -- Net 90 ml Exam: Gen: Alert, pleasant, no distress HEENT: Left decompressive hemicraniectomy site is full with ghassan in place and surgical incision.No clear visual field cut. No facial droop. Pharynx is clear. Neck supple. Mucosal membranes are moist Skin: no rashes Cardiac: Cor RRR Pulmonary: clear to auscultation bilaterally Abdomen: normal bowel sounds, soft, nontender, PEG tube is intact Musculoskeletal: no joint tenderness, deformity or swelling, no muscular tenderness noted, full range of motion without pain Neuro: She is awake, following intermittent commands, expressive greater than receptive aphasia. Affect: Intermittently tearful Motor: Strength no clear focal weakness, although there may be some relative right lower extremity weakness. Tone normal Reflexes: trace Sensation: No extinction no clear focal sensory loss Cerebellar: no tremors Labs: I have personally reviewed CBC: Lab Results Component Value Date WBC 6.43 03/02/2020 RBC 4.10 03/02/2020 HGB 13.2 03/02/2020 HCT 39.6 03/02/2020 MCV 97 03/02/2020 MCH 32.2 03/02/2020 MCHC 33.3 03/02/2020 PLT 462 (H) 03/02/2020 NEUTROABS 5.03 02/14/2020 BMP: Lab Results Component Value Date NA 134 (L) 03/02/2020 K 4.8 03/02/2020 CL 102 03/02/2020 CO2 22 03/02/2020 BUN 20 03/02/2020 CREATININE 0.45 (L) 03/02/2020 CALCIUM 8.8 02/14/2020 MG 1.7 03/02/2020 PHOS 5.6 (H) 03/02/2020 LABALBU 3.9 05/07/2001 Assessment/Problems: (update problem list daily as appropriate) Patient Active Problem List Diagnosis Date Noted ??? *(H)Left-sided nontraumatic intracerebral hemorrhage ([facility]) 03/02/2020 Priority: Medium Status post decompressive hemicraniectomy ??? Brain herniation ([facility]) 02/17/2020 Priority: Medium ??? Cerebral edema ([facility]) 02/17/2020 Priority: Medium ??? 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 (H)Cerebral venous thrombosis 02/14/2020 Priority: Medium ??? Encounter for insertion or removal of intrauterine contraceptive device 02/12/2020 Priority: Medium ??? Nicotine dependence, unspecified, uncomplicated 02/12/2020 Priority: Medium ??? Perimenopausal 02/12/2020 Priority: Medium ??? Post concussion syndrome 02/12/2020 Priority: Medium ??? Tobacco abuse 12/02/2012 Priority: Medium ??? Chronic low back pain 10/13/2012 Priority: Medium ??? Back pain 09/25/2012 Priority: Medium Plan: 1. Left frontal intraparenchymal hemorrhage: Status post decompressive craniectomy. Patient with residual mild right-sided weakness, significant expressive and receptive aphasia, dysphagia. Full PT, OT, ANESTHESIOLOGY PHYSICIAN ASSISTANT assessments and therapies to address mobility, self care communication and swallowing function. 24 hour rehab nursing for self care deficits. Monitor for any evidence of increasing headache which would require follow-up CT scan, especially recent supratherapeutic low molecular weight heparinlevel. Neurologic exam currently is unchanged however. Helmet on when out of bed Dysphagia level 4 diet with thin liquids. 2. 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 Evidence of left IJ, sigmoid and transverse sinuses as well. Now on therapeutic dose Lovenox. Continued follow-up with hematology and thrombosis clinic in 2-4 weeks. Low molecular weight heparin level was high yesterday and dosed hours adjusted to 70 mg every 12 hours. Recheck level early next week. ?? 3. Right upper lobe pulmonary embolism, left upper extremity DVT: Now on therapeutic dose Lovenox. ?? 4. History of anxiety/depression: Monitor clinically. Currently on Seroquel at at bedtime. Considermedical psychology consultation as language deficits allow. She has listed allergies to citalopram and duloxetine. 5. Nutrition: Requested 3 times daily supplements and increasing free fluid through her gastrostomytube she has not taken by mouth. ?? Jaden Rutherford MD 03/04/2020 10:52 * Eliza Douglas, OT - 03/04/2020 0915 EDT [facility] Rehabilitation Therapy Inpatient [facility] Occupational Therapy Encounter Note Date of Service: 03/04/2020 Subjective: Pt indicated preference to be called Ynes. Her name was changed on the board. After providing pt with her glasses, she states Oh, look. It felt good Following participation in MVPT and scoring well. So will I see you Saturday or Saturday? Interventions Completed Today: OT Treatment 1 Start Time: 0900 Individual Therapy (minutes): 60 Minutes Total Minutes Treatment 1: 60 OT Treatment 2 Start Time: 1330 Individual Therapy (minutes): 30 Minutes Total Minutes Treatment 2: 30 OT Total Therapy Minutes Total OT Individual Minutes: 90 Treatment 1: Self care: Pt initially resistant to participating in OT, indicating pain. Provided 5 min of rest while OT setup for bedside bath/dress. Pt then participated: Bathing: UB bathing from sitting on EOB with cues. LB bathing - declined - frustrated and indicating pain. UB dressing: Supervision to merged with [facility] gown - Supervision to untie both ties. Supervision to don t-shirt from sitting LB dressing: Cues and min contact assist to merged with [facility] pj pants. Min contact assist to don pantsand socks. Helmet: Attempts, but requires assist to fasten Grooming: Set up at sink Cues to initiate, and sought confirmation that she was doing the task correctly. Brushed teeth, including applying toothpaste. Glasses arrived this morning. Pt put them on and immediately began scanning the room. She Demonstrated interest in family photos. She appeared to know exactly who the people were, but was unable to communicate by name, even if assumed names were provided. Treatment #2 Pts sister called when I was in the room. Pt problem solved answering independently. I spoke to the sister who provided information to help get to know pts likes and dislikes. Music: [employer] and [employer] Cats names: Lady and Zulema Sports: [employer] Food: fish, nepalese muffins and pasta Activities: Color by number, adult coloring book with colored pencils TV: Survivor, [employer] and [employer], Housewives This list was hung in her room. Visual Perception The Motor-free Visual-Perception Test (MVPT) is a test that assesses a person???s ability to interpret visual information using visual discrimination, figure-ground, object constancy, visual completion and spatial elements. It also assesses the efficiency of a person???s visual processing. ?? Test was initiated but not completed due to time. Pt score 20/21. Task ended at visual closure as it required more verbal instruction. Pt leaned her body to the right to best view the pictures. She denied double vision, but this was unclear. Pt reported no improvement when occluding individual eyes. Pt indicated she was very pleased with how she did. Assessments: Pt initially not receptive to therapy, indicating pain and frustration. When provided with multipleshort <5 minute rest breaks, in bed, pt increased her level of participation. She appears to be indicating that she is limited by pain. Pt demonstrates fair - good problem solving, fine motor control, undoing a knot in her gown, fixinga sock that was falling off and turned the wrong way Pt appears to prefer having her glasses on when out of bed. Barriers: Pain and aphasia. Expressive and receptive. She will occasionally appear to have some understanding of the conversation and laugh appropriately. Pt tolerated second session very well. She was very pleased with how she scored on the MVPT. Elected this tasks to minimize need for instruction. Given her posturing to the right to view objects on the page, there is some element of visual impairment. Difficult to differentiate at this time. Language was improved in the afternoon. She was initiating and stringing words together that were appropriate to task and time frames. Plan: Continue OT per plan of care. Ambulatory ADL for clothing retrieval Sponge bathe at sink - chair behind Frequent 3-5 min rest breaks as fatigue and frustration notices (in bed) Adult coloring book/color by number Sequence cards MAEGAN Douglas OT, 03/04/2020, 9:16 * Oliva Martinez, [facility]-ANESTHESIOLOGY PHYSICIAN ASSISTANT - 03/04/2020 0851 EDT Speech-Language Pathology Daily and Current Progress Note ANESTHESIOLOGY PHYSICIAN ASSISTANT Diagnosis: Aphasia and oropharyngeal phase dysphagia Medical Diagnosis: Cerebral venous thrombosis and resultant intraparenchymal hemorrhage in the leftfrontotemporal area Date of Onset: 02/14/20 Date of Referral: 03/02/20 Subjective/Objective SUBJECTIVE: First Session: I really don't know, I'm just gonna push (pick) one. When you talk about it I get it but I don't know what to do with it. Uh oh, there's a throw. (patient attempting to describe her upset stomach) Ramirez. (target word= knife) Second Session: Oh my gosh it never ends. I know what it is but I can't say it out loud. I don't like being this way. I can't think right now. I can't understand today. I had to eat my own phalluses so I had to eat my own licenses, so I had to enough with laces on mystomach a half hour ago I can't concentrate right now. OBJECTIVE: Date of Service: 03/04/2020 First Session: Start Time: 1100 Total Therapy minutes: 30 minute(s) (30 minutes comm-cog tx) Second Session: Start Time: 1430 Total Therapy minutes: 20 minute(s) (0 minutes swallow tx; 20 minutes comm-cog tx- ended session 10minutes early secondary to patient tolerance level) Current Treatment Objectives: Continued Evaluation: Goal #1: The patient will complete the ANESTHESIOLOGY PHYSICIAN ASSISTANT evaluation in the areas of: verbal expression, auditory comprehension, reading comprehension, and written expression, as tolerated by the patient. 03/04/2020: First Session- The Western Aphasia Battery- Revised (WAB-R) was utilized today to evaluate Ynes Balderass expressive and receptive language skills. See details below: Subtest Raw Score Auditory Verbal Comprehension Auditory Word Recognition 11/60 Sequential Commands 0/80 Auditory Verbal Comprehension Total 17/200 Auditory Verbal Comprehension Score 0.85 Naming & Word Finding Responsive Speech 0/10 Second Session- The Western Aphasia Battery- Revised (WAB-R) was utilized today to evaluate Racheal expressive and receptive language skills. See details below: Subtest Raw Score Naming & Word Finding Object Naming 0/60 Word Fluency 0/20 Sentence Completion 0/10 Naming & Word Finding Total 0 Naming & Word Finding Score 0 Aphasia Quotient 27.7 Aphasia Type (determined by aphasia quotient) Wernicke's Auditory Comprehension: Goal #1: Patient will identify objects in a visual field of 2-3 with >70% accuracy provided moderate cues for attention and information processing. Goal #2: Patient will answer simple yes/no questions immediately after review with >70% accuracyprovided moderate cues for attention and initiation. Goal #3: Patient will follow simple 1-step commands related to functional environment with >70% accuracy provided moderate verbal/tactile/visual cues in order to increase functional integration into environment. ?? Expressive Language: Goal #1: Patient will recite automatic speech tasks given moderate cues with >70% accuracy. Goal #2: Patient will name objects (real or pictured) to confrontation with >70% accuracy provided moderate verbal cues. ?? Swallowing: Goal #1: Patient will masticate and manipulate boluses of regular food (IDDSI Level 7) adequately to safely consume least restrictive diet provided no cues. Goal #2: Patient will safely ingest diet trials of regular food (IDDSI Level 7) with the ANESTHESIOLOGY PHYSICIAN ASSISTANT with no overt s/sx of penetration/aspiration in order to safely consume least restrictive diet provided nocues. PATIENT/FAMILY EDUCATION: Patient/Family Education: Patient/family education was provided today including: role of Speech-Language Pathology, results of today's assessment, and questions were addressed. Topic: Patient/Family education and training was completed today including the role of Speech-Language Pathology, results of today's exam/recommendations, rehab goals and questions were addressed. Learner: patient Method of Education: Verbal Barriers to Learning/Education: patient's level of arousal, fatigue, and presence of language impairment Patient: needs further instruction and education Family: No family present. Patient/Family Goals: Patient states today I want to get better. ?? Assessment /CLINICAL IMPRESSIONS: Ynes White is a female 50 y.o. 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 Today Ynes continued to participate in ongoing evaluation of her language skills. She demonstrates mild gains today in engagement and attempted to verbalize that she was appreciative of having breaks in her schedule, although her second session was ended 10 minutes early secondary to her tolerance level. ANESTHESIOLOGY PHYSICIAN ASSISTANT assumed responsibility of interpreting the patient's message today for the majority of the session, although patient did provide context clues that assisted ANESTHESIOLOGY PHYSICIAN ASSISTANT in interpretation of message. She remains appropriate for 30 min BID sessions based on her level of arousal, fatigue, and engagement. ?? Ynes White currently presents with a mild oropharyngeal phase dysphagia characterized by slightly reduced bolus manipulation, slightly delayed swallow response, adequate hyo-laryngeal excursionvia palpation, and multiple swallows of each bolus. No overt signs/ symptoms of laryngeal penetration/ aspiration were identified today. Etiology of dysphagia is neurogenic. CN exam suggests involvement of CN XII (Hypoglossal). Damage to CN XII (Hypoglossal) can result in inability to position foodfor chewing, resulting in food getting pocketed in cheeks, poor bolus manipulation, poor bolus preparation, reduced A-P bolus transfer, resulting in oral residue after the swallow, and/or poor tonguebase retraction to the posterior pharyngeal wall, resulting in post-swallow residue in the valleculae. Reduced lingual pressure due to damage to CN XII may also result in decreased pressure required to drive the bolus through the UES. ?? Patient demonstrates the following aspiration risk factors: swallowing problems and high risk population for silent aspiration (CVA). Patient does not demonstrate the following aspiration risk factors: more than one medical dx, weight loss, dependence on others for feeding, dependence on others fororal care, decayed teeth, tube feeding, smoking, suctioning, bedridden and delirium indicators. Based on patient's oral care, likelihood of presence of aspiration, and immune system status, Ynes remains at slightly increased risk of aspiration at this time (Gorge, 2002; Óscar et. al, 2005, 2008, 2012). Compensatory strategies of slightly modified textures (Dysphagia 4), small bites/sips, and use of multiple swallows appear effective in decreasing risk of aspiration. Prognosis for improvement in swallow function is judged to be good at this time secondary to anticipated neurologic recovery. Anticipate patient will tolerate a Dysphagia 4 diet level with thin liquids and may progress to a regular diet with skilled 1:1 intervention. ?? Ynes White also currently presents with severe expressive and receptive aphasia, most consistent with Wernicke's type but with some deviation from typical Wernicke's type presentation, and characterized by deficits in auditory comprehension and expressive language. Patient appears to be able to follow some basic 1-step commands effectively provided context, models, slow auditory presentation of information, and tactile cues as needed. Repetition, object naming, word fluency, sentence completion, and responsive speech are all impaired. Ynes demonstrates a favorable response to use of gestures to assist with her auditory comprehension. Expressive language is characterized as fluent but mostly consists of word salad with many instances of jargon, neologisms, and paraphasias with occasional moments of intelligible discourse scattered throughout. Ynes's discourse could also be described as tangential and perseverative. She attempts to utilize gestures to augment her expressive language, but is not always successful. These deficits impact the patient's ability to functionally communicate her wants, needs, and ideas and hold conversation. ?? Based on evaluation to date, it has been determined that the patient demonstrates deficits that impact functioning in daily activities and hinder participation in life situations.??Basic receptive and expressive language function appears to be impacted based on evaluation. Patient currently requires assistance from others to communicate basic wants and needs and direct her medical care. Pt will continue to benefit from her needs being anticipated and simplified information presented to her. Information should be repeated and said in different ways, and augmented with pictures and gestures. The patient is demonstrating strengths in motivation and some intact basic expressive language skills which should be utilized during the patient's plan of care to maximize gains. Contextual factors that may impact the patient's ability to progress toward rehab goals include: severity of language impairment, need for physical assistance, tolerance level for therapy, and pain. Based on patient's tolerance level, it is recommended that patient participate in 30 minute BID sessions initially and build toward 60 minute sessions as tolerated. Given patient's age, independence prior to admission, and social/occupational demands, she would benefit from intensive ANESTHESIOLOGY PHYSICIAN ASSISTANT intervention. Based on the patient's rehab potential, motivation, prior level of function, and the contextual factors, the patient's prognosis is considered good. It is anticip ated that the patient will make functional gains in expressive and receptive language skills with intensive skilled 1:1 speech language pathology services in the inpatient rehabilitation setting. Functional Communication Measures ([place] [employer]- Language- [employer], 2002). The Functional Communication Measures (FCM???s) are a series of 7 point rating scales, ranging fromleast functional (Level 1) to most functional (Level 7). They have been developed by [employer] to describe different aspects of patient???s functional communication and swallowing abilities over the course of ANESTHESIOLOGY PHYSICIAN ASSISTANT intervention. ?? Spoken Language Comprehension Level 2: With consistent, maximal cues, the individual is able to follow simple directions, respond to simple yes/no questions in context, and respond to simple words orphrases related to personal needs. ?? Spoken Language Expression Level 3: The communication partner must assume responsibility for structuring the communication exchange, and with consistent and moderate cueing, the individual can produce words and phrases that are appropriate and meaningful in context. ?? Swallowing Level 6: Swallowing is safe, and the individual east and drinks independently and may rarely require minimal cueing. The individual usually self-cues when difficulty occurs. May need to avoid specific food items (e.g., popcorn and nuts), or require additional time (due to dysphagia). ?? GOALS: Snf Goals: Projected Functional Communication Measures at discharge: Spoken Language Comprehension Level 4: Individual consistently responds accurately to simple yes/noquestions and occasionally follows simple directions without cues. Moderate contextual support is usually needed to understand complex sentences/messages. The individual is able to understand limited conversations about routine daily activities with familiar communication partners. ?? Spoken Language Expression Level 4: The individual is successfully able to initiate communication using spoken language in simple, structured conversations in routine daily activities with familiar communication partners. The individual usually requires moderate cueing, but is able to demonstrate use of simple sentences (i.e., semantics, syntax, and morphology) and rarely uses complex sentences/messages. ?? Swallowing Level 7: Individual's ability to eat independently is not limited by swallow function. Swallowing is safe and efficient for all consistencies. Compensatory strategies are effectively used when needed. ?? Short Term Goals: Continued Evaluation: Goal #1: The patient will complete the ANESTHESIOLOGY PHYSICIAN ASSISTANT evaluation in the areas of: verbal expression, auditory comprehension, reading comprehension, and written expression, as tolerated by the patient. ?? Auditory Comprehension: Goal #1: Patient will identify objects in a visual field of 2-3 with >70% accuracy provided moderate cues for attention and information processing. Goal #2: Patient will answer simple yes/no questions immediately after review with >70% accuracyprovided moderate cues for attention and initiation. Goal #3: Patient will follow simple 1-step commands related to functional environment with >70% accuracy provided moderate verbal/tactile/visual cues in order to increase functional integration into environment. ?? Expressive Language: Goal #1: Patient will recite automatic speech tasks given moderate cues with >70% accuracy. Goal #2: Patient will name objects (real or pictured) to confrontation with >70% accuracy provided moderate verbal cues. NEW Goal #3: Patient will repeat 1-2 syllable functional words with >70% accuracy provided a visual model by the clinician. ?? Swallowing: Goal #1: Patient will masticate and manipulate boluses of regular food (IDDSI Level 7) adequately to safely consume least restrictive diet provided no cues. Goal #2: Patient will safely ingest diet trials of regular food (IDDSI Level 7) with the ANESTHESIOLOGY PHYSICIAN ASSISTANT with no overt s/sx of penetration/aspiration in order to safely consume least restrictive diet provided nocues. ?? Plan /RECOMMENDATIONS: Patient will continue to benefit for further ANESTHESIOLOGY PHYSICIAN ASSISTANT intervention in this setting to address dysphagia and aphasia management and intervention needs. ?? Recommend inpatient rehabilitation ANESTHESIOLOGY PHYSICIAN ASSISTANT services: Patient will be seen for a minimum of 5x/week @ 30minutes BID due to current tolerance level. Swallowing Recommendations: Diet: Dysphagia 4 Liquids: IDDSI Level 0- Thin Medications: Medication should be administered crushed with pureed foods or whole with thin liquidsif pt prefers. ?? Precautions: ?? small bites/sips ?? 1 bite at a time ?? complete oral care following each meal ?? Patient needs assist with set up of meals. ?? Patient should eat in a low stimulation environment to increase attention to meal time. ?? When eating, patient should be upright??at 90??degrees as tolerated. ?? Patient may??use a straw when drinking liquids. ?? Oral Care Precautions: Individuals with dysphagia are at increased risk for aspiration. Aspiration occurs when food, liquid, or saliva travels down the airway (to the lungs) instead of down the esophagus (to the stomach). Aspiration can have very serious consequences, including aspiration pneumonia. The mouth contains bacteria that can be dangerous if it enters the lungs and can increase risk of development of aspiration pneumonia. Therefore, it is very important for individuals with dysphagia to follow strict oral care guidelines to reduce the risk of aspirating dangerous oral bacteria. ? Remove any visible debris (pieces of leftover food, etc.) before brushing teeth. ?? Bonanza teeth thoroughly before and after ALL intake (meals, snacks, etc.). ?? [place] tongue from back to front. ?? [place] the roof of your mouth and cheek pockets. ?? Clean mouth thoroughly each morning and at bedtime. ?? Rinse mouth with water after brushing teeth. ?? Floss teeth daily. ?? Mouth wash is NOT a substitute for brushing teeth. ?? Communication Access and Shared Decision Making Recommendations Please support communication access and shared decision making ability by doing the following: ?? Support Comprehension: ?? Have a pen and paper ready when communicating. ?? Please present information slowly and simplify. Augment with drawings, diagrams, gestures and pointing. ?? Ask one question at a time. ?? Have only one person speak at a time. ?? Environmental modifications:? Simplify the environment: ?? Carryover/Discharge??and Healthcare Decision making considerations ?? Will need family support for the successful carryover of discharge recommendations. ?? Currently comprehension of non-contextual information is a barrier Oliva Martinez MS CCC-ANESTHESIOLOGY PHYSICIAN ASSISTANT 03/04/2020 15:31 * Milli Singh, PT - 03/04/2020 0738 EDT [facility] Rehabilitation Therapy Inpatient Rehabilitation Center [facility] Physical Therapy Encounter Note Date of Service: 03/04/2020 Subjective/Objective Subjective I want to do, but I just can't No, no I'm not going in there. regarding therapy gym Objective Start time: 1000 Total Therapy Minutes: 30 minute(s) Interventions completed today: Vital Signs: Pre UE=[id number] KP=771 Therapeutic activities: -supine<>sit x 2 with supervision x 1 and cuing for moving slowly to avoid exacerbating QUINONES -Ankle pumps x 20 to promote LE circulation -Attempted to engage pt in clamshells while sidelying, pt completed x 2 then stated that she could not do any more. Gait Training: Gait Speed (meters/second)^ 0.22 meters/sec. This test assesses walking speed over an established distance. Age/gender normative values (Kirsten, 2011) Age Gender 95% CI meters/second 20-29 Male 1.21-1.47 20-29 Female 1.08-1.49 30-39 Male 1.31-1.53 30-39 Female 1.25-1.41 40-49 Male 1.27-1.47 40-49 Female 1.22-1.42 50-59 Male 1.12-1.49 50-59 Female 1.10-1.55 60-69 Male 1.03-1.59 60-69 Female 0.97-1.45 70-79 Male 0.95-1.41 70-79 Female 0.83-1.50 80-89 Male 0.61-1.22 80-89 Female 0.56-1.17 Walking categories by gait speed (Rehan, 1995) Category Gait speed meters/second Physiologic 0.10 Limited household 0.23 Unlimited household 0.27 Most limited community 0.40 Least limited community 0.58 Community 0.80 The minimal detectable change (MDC-95%) for patients undergoing inpatient rehabilitation after an acute stroke is 0.13 meters/second. (Barthuly, 2012) The minimal detectable change (MDC-95%) for patients with chronic stroke is - 0.15 to 0.25 meters/second. (Nichol, 2005) The minimal clinically important difference (MCID) for patients undergoing inpatient rehabilitationafter an acute stroke is 0.13 meters/second using walking categories as the anchor. (Kirsten, 2013) The minimal clinically important difference (MCID) for patients 2 to 5 months post stroke is 0.17 meters/second. (Iglesia 2011) Assist: min contact A x 1 ? Device:?? none Distance: ??138', 92' Condition/task:??overground, tile, open environment Gait deviations:?impaired gait speed, shuffling pattern, increased toe out angle B, decreased foot clearance, increased DL stance time, short step length, pt reaching for objects to hang onto Focus of gait training:? increasing ambulation distance, upright posture 2nd Session Time: Start time: 1130 Total Therapy Minutes: 30 minutes Interventions completed today: Therapeutic activities: -supine<>sit with supervision x 1 -stand step transfer bed to min contact A x 1 and cuing for hand placement on arm rests -car transfer: min contact A x 1 with cuing for sitting first, then swinging legs into car and viseversa on the way out -stand>sit>supine with supervision x 1 Pt resting comfortably at end of session with needs met and call miranda in place. Gait Training: Assist: min contact A x 1, follow ? Device:?? none Distance: ??30', 60', 60' Condition/task:??overground, tile, open environment Gait deviations:?same as above Focus of gait training:? increasing ambulation distance, decreasing UE support during ambulation Stairs: up/down four 6.5 stairs with B railings, 2 rounds with min contact A x 1 and cuing for slow pace and step to pattern to improve safety Pt able to remember which room was her's once directed to the correct hallway Gait Speed - Distance (M): 3.05 Gait Speed - Time (sec): 14 Gait Speed - Velocity (meters/sec): 0.22 meters/sec Patient/Family Education: Topic: Improvements in performance as compared to yesterday Learner: patient Method: verbal Barriers to Learning: cognitive deficits and language/aphasia Outcome: requires assist and needs practice Team Communication: with OT regarding pt performance, goals, and high level brain injury program Assessment/Plan Assessment Pt with improved participation with therapy with shorter sessions and more frequent rest breaks throughout the day. Pt does require in-session rest breaks due to fatigue and pain in head, abdomen andLLE but when allowed to sit or lay down for 2-3 minutes intermittently throughout session pt does appear somewhat re-energized and better able to engage in therapeutic interventions. Plan 6MWT Escobar 5x sit to stand Initiate high level brain injury program when appropriate Primary Therapist: Contact information: Pager: [phone] Milli Singh, PT 03/04/2020 11:12 * Vashti Way MD - 03/03/20202124 EDT Notified by the pharmacist that the low molecular weight heparin level today came in high at 1.23. They are recommending a 20% reduction in the enoxaparin dose to 70 mg every 12 hours. Dose will be changed starting tomorrow morning and 70 mg every 12 hours. * Vashti Way MD - 03/03/20202027 EDT One time order given for2 mg dose of Dilaudid because of increased headache. Patient???s usual 2 to4 mg per every four hours PRN dose remains available to her within one hour. * Jaden Rutherford MD - 03/03/2020 1001 EDT Physiatry Progress Note Admit Date: 03/02/2020 Hospital Day: LOS: 1 day Date of Service: 03/03/2020 Chief Complaint: Left temporoparietal hemorrhage status post decompressive craniectomy, setting of central venous thrombosis 02/14/2020 Subjective: Remains with expressive and receptive language deficits limiting history. No acute issues overnight appreciated. She does indicate some diffuse headache, no vision change or shortness of breath. Current Facility-Administered Medications: acetaminophen (TYLENOL) tablet 1,000 mg oral Q6H Or acetaminophen (TYLENOL) solution unit dose cup 995 mg per ng tube Q6H Or acetaminophen (TYLENOL) suppository 975 mg rectal Q6H amino acids-protein hydrolysate (PRO SOURCE NOCARB) packet 60 mL feeding tube BID aspirin chewable tablet 81 mg oral DAILY bisacodyL (DULCOLAX) suppository 10 mg rectal Q48H PRN calcium carbonate (TUMS) 200 mg calcium (500 mg) per chewable tablet tablet,chewable 1 Tab oral QIDPRN docusate (COLACE) liquid 100 mg oral BID enoxaparin (LOVENOX) injection 90 mg subcutaneous Q12H guaiFENesin tablet 200 mg oral Q6H PRN HYDROmorphone (DILAUDID) tablet 2-4 mg oral Q4H PRN lisinopriL (PRINIVIL) tablet 20 mg oral DAILY melatonin tablet 3 mg oral QHS metoprolol (LOPRESSOR) tablet 25 mg oral BID Multivitamins with minerals + ferrous gluconate (CENTRUM) oral solution 15 mL feeding tube DAILY nicotine (NICODERM CQ) 7 mg/24 hr patch 1 Patch transdermal Q24H pantoprazole (PROTONIX) tablet 40 mg oral DAILY papain-alpha amylase-cellulase (CLOG ZAPPER) 2-5 mL feeding tube PRN QUEtiapine (SEROQUEL) tablet 25 mg oral QHS senna (SENOKOT) tablet 1 Tab oral BID Objective/Physical Exam: VS: Patient Vitals for the past 8 hrs: BP Pulse Resp Temp 03/03/20 0900 118/58 88 -- -- 03/03/20 0648 128/75 97 16 (!) 35.5 ??C (95.9 ??F) Pain: Patient Vitals for the past 8 hrs: Numeric Pain Level (Scale 1-10) Asleep 03/03/20 0610 -- Reassessed, sleeping comfortably, RR WNL. 03/03/20 0505 -- Reassessed, sleeping comfortably, RR WNL. 03/03/20 0415 -- Reassessed, sleeping comfortably, RR WNL. 03/03/20 0307 9 -- 03/03/20 0300 9 -- 03/03/20 0205 -- Reassessed, sleeping comfortably, RR WNL. Weight: Weight : 84.7 kg (186 lb 11.2 oz) Glucose Readings (last 8 readings): No results for input(s): GLUCOSEFINGE in the last 72 hours. I&O: Intake/Output Summary (Last 24 hours) at 03/03/2020 1001 Last data filed at 03/03/2020 0754 Gross per 24 hour Intake 300 ml Output -- Net 300 ml Exam: Gen: Alert, pleasant, no distress HEENT: Left decompressive hemicraniectomy site is full with ghassan in place and surgical incision.No clear visual field cut. No facial droop. Pharynx is clear. Neck supple. Mucosal membranes are moist Skin: no rashes Cardiac: Cor RRR Pulmonary: clear to auscultation bilaterally Abdomen: normal bowel sounds, soft, nontender, PEG tube is intact Musculoskeletal: no joint tenderness, deformity or swelling, no muscular tenderness noted, full range of motion without pain Neuro: She is awake, following intermittent commands, expressive greater than receptive aphasia. Affect: Intermittently tearful Motor: Strength no clear focal weakness, although there may be some relative right lower extremity weakness. Tone normal Reflexes: trace Sensation: No extinction no clear focal sensory loss Cerebellar: no tremors Labs: I have personally reviewed CBC: Lab Results Component Value Date WBC 6.43 03/02/2020 RBC 4.10 03/02/2020 HGB 13.2 03/02/2020 HCT 39.6 03/02/2020 MCV 97 03/02/2020 MCH 32.2 03/02/2020 MCHC 33.3 03/02/2020 PLT 462 (H) 03/02/2020 NEUTROABS 5.03 02/14/2020 BMP: Lab Results Component Value Date NA 134 (L) 03/02/2020 K 4.8 03/02/2020 CL 102 03/02/2020 CO2 22 03/02/2020 BUN 20 03/02/2020 CREATININE 0.45 (L) 03/02/2020 CALCIUM 8.8 02/14/2020 MG 1.7 03/02/2020 PHOS 5.6 (H) 03/02/2020 LABALBU 3.9 05/07/2001 Assessment/Problems: (update problem list daily as appropriate) Patient Active Problem List Diagnosis Date Noted ??? *(H)Left-sided nontraumatic intracerebral hemorrhage ([facility]) 03/02/2020 Priority: Medium Status post decompressive hemicraniectomy ??? Brain herniation ([facility]) 02/17/2020 Priority: Medium ??? Cerebral edema ([facility]) 02/17/2020 Priority: Medium ??? 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 (H)Cerebral venous thrombosis 02/14/2020 Priority: Medium ??? Encounter for insertion or removal of intrauterine contraceptive device 02/12/2020 Priority: Medium ??? Nicotine dependence, unspecified, uncomplicated 02/12/2020 Priority: Medium ??? Perimenopausal 02/12/2020 Priority: Medium ??? Post concussion syndrome 02/12/2020 Priority: Medium ??? Tobacco abuse 12/02/2012 Priority: Medium ??? Chronic low back pain 10/13/2012 Priority: Medium ??? Back pain 09/25/2012 Priority: Medium Plan: 1. Left frontal intraparenchymal hemorrhage: Status post decompressive craniectomy. Patient with residual mild right-sided weakness, significant expressive and receptive aphasia, dysphagia. Full PT, OT, ANESTHESIOLOGY PHYSICIAN ASSISTANT assessments and therapies to address mobility, self care communication and swallowing function. 24 hour rehab nursing for self care deficits Helmet on when out of bed Dysphagia level 4 diet with thin liquids ??Team meeting is attended today and case discussed with all team members. I spent 35 minutes of floor time, greater than 50% of that time was spent face to face with the patient in counseling and coordination of care and counseling including review of therapy goals and barriers to discharge, recovery, functional progress. 2. 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 Evidence of left IJ, sigmoid and transverse sinuses as well. Now on therapeutic dose Lovenox. Continued follow-up with hematology and thrombosis clinic in 2-4 weeks. Low molecular weight heparin level today. ?? 3. Right upper lobe pulmonary embolism, left upper extremity DVT: Now on therapeutic dose Lovenox. ?? 4. History of anxiety/depression: Monitor clinically. Currently on Seroquel at at bedtime. Considermedical psychology consultation as language deficits allow. ?? Jaden Rutherford MD 03/03/2020 10:01 * Isamar Angel - 03/03/2020 0936 EDT Rehab. Case Management Assessment & Initial Discharge Plan Working Diagnosis/Presenting Problem: admitted to Acute rehabilitation following a central venous thrombosis with left temporoparietal hemorrhage. 50-year-old female with a history of postconcussive syndrome and tobacco abuse. ??On 02/14/2020, shehad continued headache, and brought back to [facility] where CT scan of the head showed a significant left temporoparietal intracranial hemorrhage with 2 mm shift, she was hypertensive at 170/100. On 02/16/2020, she had a neurologic decline and hemorrhage was found to be expanded with midline shift, righthemiparesis was noted with decreased level of consciousness. ??She was taken urgently to the OR on 02/16/[address] Piña who performed a left frontal, temporal and parietal craniectomy and evacuation of intraparenchymal hemorrhage. ??On 02/18/2020, acute care surgery placed a percutaneous gastrostomy tube. ??Work-up for thrombosis has been non-conclusive. Living Arrangements: (with whom; description of house; steps/stairs; railings; ramp) : lives in herown apartment, alone, with a couple of cats. No steps to enter. 1 level. Tub/shower combo. Identified barriers:amount of support needed and available. Action to resolve barriers: SHELTON Curtis is moving into her apartment with her to provide needed support at home. 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 Current level of functioning: Helmet on when out of bed. Requiring assist with all mobility and transfers. Communication needs: expressive aphagia noted Family functioning: has a supportive family: her SHELTON Curtis, her sister Hola and her brother Ken. Substance Abuse, (F/U if indicated): not addressed at this time Smoking status, (F/U if indicated): She is a smoker. Behavioral Health Needs: currently on 1:1 sitter for safety. Social Supports: First contact: (name and #) Hola, , . SHELTON Linda, If 17/06 indicated, who would provide; what level of assist can they provide: Ever and her siblings will provide Identified caregiver: yes Verified: yes Community Resources: PCP: (last time seen) : TY Carrillo Pharmacy/location: [facility] Consent for d/c meds to be filled at [facility] Med[facility] Pharmacy? Yes Patient chose [facility] for DME Pt. chose [facility] if home health services indicated Pt. chose [facility] if outpatient services indicated MOW: n/a Medic Alert System: n/a CFC/TBI Waiver? No Advanced Directives/DPOA: Yes or No: No Action taken if no: not appropriate at this time. Cultural/Language/Spiritual Needs: no addressed at this time. Insurance/Financial Needs: Current insurance coverage: Medicaid If no insurance, action taken: n/a Prescription coverage? yes LTC Medicaid indicated? TBD Disability needs assessed? Yes, action taken: will discuss with MD if SSDI applciation may be needed. ST or LT disability through employer n/a. 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 Transportation Needs: Who will provide: her family Transportation for outpatient f/u? same Action taken to arrange: None at this time. Patient Goals: Assessment and Discharge Care Plan: Identify anticipated d/c plan, destination, and caregivers: I anticipate a discharge home with SO and family support, and home health services vs outpt therapy, depend ing onher progress in acute rehab. ISAMAR ANGEL RN CM * Eliza Douglas, OT - 03/03/2020 0819 EDT [facility] Rehabilitation Therapy Inpatient Rehabilitation [facility] Occupational Therapy Initial Evaluation Note Date of Service: 03/03/2020 Reason for Referral: Evaluate and treat consistent with acute rehabilitation admission. Precautions: Fall risk 1:1 - impulsivity Helmet on when OOB (bone flap) Aphasia Dysphasia 4 with thin liquids Notify MD if: SBP is less than 90 or greater than 180 mmHg. Treat for SBP > 160 mmHg SUPPORT: Per Case Management note 02/14/2020 Hola (sister) states that upon d/c, she and brother Ken can provide significant support as well as her boyfriend Ever, they all live close by. Hola would like to be first contact [phone]. Pt graduated from [employer] in [place] [employer] for 7 years SUBJECTIVE: Pt verbalizing. Words are intelligible, but do not relate to subject matter. Pain: Pt unable to rate pain. Indicated all over. Subjectively appears to have some tactile sensitivities. OBJECTIVE: Patient Profile; Ynes White is a right hand dominant 50 y.o. femaleadmitted on 03/02/2020 secondary to Central venous thrombosis with left temoroparietal hemorrhage. The patient lives at [address] [place] [address]. History of Present Illness/Injury: Per Dr. Rutherford's note 03/02/2020 Patient is a??50-year-old female with a history of postconcussive syndrome and tobacco abuse. ??Shezacd noted headache on 02/13/2020 was evaluated at [facility], where CT scan of the head was reported as negative she was discharged to home. ??On 02/14/2020, she had continued headache, and brought back to [facility] where CT scan of the head showed a significant left temporoparietal intracranial hemorrhage with2 mm shift, she was hypertensive at 170/100. ??She was transferred to the [facility] for further evaluation. ??On admission, she was seen by neurosurgery and??neurology. ??CT angiogram of the head and neck and CT venogram of the head demonstrated venous thrombosis the left internal jugular vein, sigmoid and transverse sinus as well as the veins of Trolard and Kristen. ??She additionally was found to have a segmental right upper lobe acute pulmonary embolism , without evidence of right heart strain. Cerebral hemorrhage remained stable on serial CT scans she was started on intravenous heparin. ??On 02/16/2020, she did have a neurologic decline and hemorrhage was found to be expanded with midline shift, right hemiparesis was noted with decreased level of consciousness andenlarging left pupil. ??She was taken urgently operating room on 02/16/[address] Piña who performed a left frontal, temporal and parietal craniectomy and evacuation of intraparenchymal hemorrhage. ? On 02/18/2020, acute care surgery placed a percutaneous gastrostomy tube. Hematology is also been involved and additional studies demonstrated left upper extremity DVT. ??Work-up for thrombosis has been nonconclusive. ?? She was initiated on IV heparin, converted to therapeutic dose Lovenox. Given dysphasia, a gastrostomy tube was placed on 02/18/[address] Branch. She has subsequently been advanced to a dysphagia level 4 diet. ?? Low molecular weight heparin level is recommended after third or fourth dose of Lovenox since was increased to therapeutic doses. Her course was incidentally notable for a hepatic lesion, and ultrasound suggestive of simple hepatic cyst with mild hepatic steatosis and borderline hepatomegaly.??PT, OT, ANESTHESIOLOGY PHYSICIAN ASSISTANT have all been involved in her care she is remained with significant limitations with overallmobility, self-cares, communication and swallowing function. Given these limitations, she was evaluated and determined to be an appropriate candidate for acute inpatient rehabilitation. ?? Living Environment/Home Set-up: Per Case management notes 02/17/2020: apartment Bathroom is not on the same level as the bedroom 24 hr care is not available Caregiver Support: Unclear - has family and boyfriend in her area Equipment Available: unknown Prior Level of Function: Unknown Medical/Surgical History: Current: Patient Active Problem List Diagnosis ??? Back pain ??? Chronic low back pain ??? Encounter for insertion or removal of intrauterine contraceptive device ??? Nicotine dependence, unspecified, uncomplicated ??? Perimenopausal ??? Post concussion syndrome ??? Tobacco abuse ??? Cerebral venous sinus thrombosis ??? Cerebral venous thrombosis ??? Brain herniation (HCC-CMS) ??? Cerebral edema (HCC-CMS) ??? Left-sided nontraumatic intracerebral hemorrhage (HCC-CMS) Past: Past Medical History: Diagnosis Date ??? Left-sided nontraumatic intracerebral hemorrhage (HCC-CMS) 03/02/2020 Status post decompressive hemicraniectomy No past surgical history on file. Medications: Medications reviewed Body Functions and Performance Skills: Cardiovascular/Respiratory Systems Function: Vital Signs: were monitored and WNL Mental Functions: Arousal/Alertness: Alert Best Verbal: verbal. Spontaneous verbalization - unable to answer questions beyond her name. Words not relevant to topic. Aphasia - receptive and expressive Best Motor: Obeys commands if provided cues Total Chela Coma Scale: 14 Orientation Level: Oriented to person. Not able to identify date even with options. Insight: Impaired Judgement: Impaired Cognitive FIM Comprehension: Expression: Problem Solving: Memory: Skills requiring prompting include Sensory Functions: Touch:Indicates some tactile sensitivity. Vision: Pt indicated she wears glasses none were located. Attending to full periphery. Hearing: grossly intact. Neuromusculoskeletal and Movement Related Functions: Range of motion: UE - bilaterally WNL Strength: UE: Moves against gravity. Gross functional grasp WNL. Skin and Related Structure Functions: Head wound: Ghassan Abdomin: PEG with dressing intact. Areas of Occupation and Performance Skills: Basic Activities of Daily Living: Feeding: Pt declined sitting on EOB due to pain. Used fork appropriately to scoop potatoes and bring to mouth. At less than 25%. Indep to drink from straw. Grooming: Cues to locate soap dispenser. Pt washed hands with min contact assist from standing at sink. Bathing: Sponge bath - cues for thouroughness Upper Body Dressing: Supervision and cues to doff shirt and bra. Indep to don hospital gown including ties behind her neck. Lower Body Dressing: Min contact assist to doff pants. Min assist to don over feet due to fatigue Toileting: Supervision Toilet Transfer: min contact assist, FWW walker ambulated with gait belt [facility] (due to PEG[facility] Tub Transfer: NA Functional Mobility: FWW and min contact assist. Supervision supine to-from sit Instrumental Activities of Daily Living: Not formally assessed. Rest and Sleep: No problems noted - fatigues following treatment. Education: No problems noted . 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 Leisure: Unknown at this time Social Participation: Pt has a boyfriend - Ever. Sister Stacey Messina Brother Ken Informed Consent: The patient consented to the occupational therapy evaluation. The patient agrees to and understandsthe occupational therapy treatment plan and goals. Interventions completed today: Occupational therapy today at 0900. Evaluation: 45 minutes Intervention: 15 minutes Total Therapy minutes: 60 minute(s) Second treatment today: Intervention: 30 min Intervention included: Self-Care/Home Management Self feeding. See above Presented opportunity to write - Pt wrote her name Lakshmi. Patient/Family Education: Education provided throughout sessions. Unclear pts level of comprehension due to aphasia. Team Communication: Rounds ASSESSMENT: This pt is a 50 year old fe/male admitted to inpatient acute rehabilitation on 03/02/2020 s/p craniectomy for hematoma evacuation on 02/16/2020. The patient???s primary impairments include: ?? impaired balance, ? Decreased activity tolerance ?? Decreased insight to injury ?? Decreased safety awareness ? Impaired language ?? Cognitive deficits ?? Upper quarter screen - negative ?? Cognitive deficits ?These impairments contribute to the following functional limitations: ? Decreased independence with functional mobility ?? Decrease safety and independence with basic self care skills ?? Currently requiring assist of 1 and 1:1 due to impulsivity ?? Decreased sequencing ?? Decreased orientation ?? 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 Prior level of function: patient was indep with household and community mobility without use of a device prior to admission. 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 She was living alone with her cats, but has family and a boyfriend, Ever who intend to provide support post discharge. ? She requires skilled occupational therapy in acute rehab: ?? to maximize independence and safety with basic self care ?? To maximize independence and safety with EADL's? complete caregiver education, ? assess equipment needs for discharge ?? OT indicated to maximize function for return to home or least restrictive environment. She may benefit from the ??High level TBI program. ?? Occupational Therapy Prognosis: Anticipate that pt will be at modified independent to supervision level for basic self care and will require assist with higher level home management tasks and community access. Pt will likely benefit from home health OT or out patient OT following discharge. ? Barriers to Discharge: Assumed from currently available information - will need clarification: ?? Single level apartment ?? Lives alone with her cats ?? Family and boyfriend (who doesn't live with her) intend to assist at D/C ?? Decreased insight ?? Impaired language ?? Estimated Length of Stay: 2-3 weeks GOALS: Short Term Goals: 10 days ??? Appropriate use of call miranda ??? Min assist for sequencing morning routine tasks ??? Tolerate 60 min OT session ??? Complete LB care with supervision only post set up ??? Complete UB care with supervision only post set up ??? Oriented x 3 using compensatory strategies Psychiatric Nurse Goals: 2 weeks ??? Supervision to complete morning care routine. ??? Independent with medication management using pill box. ?? Pt will demonstrate proper safety awareness with self-care tasks ?? Complete simple cold meal prep with supervision. PLAN: Intervention: Occupational therapy treatment for 90 minutes a day 5-6 times a week for 2 week(s) for Occupation Based Activity - Basic Activities of Daily Living Occupation Based Activity - Instrumental Activities of Daily Living Preparatory Method - Cognitive Re-training Patient/Family Education - BI education Equipment - TBD Further Data: Confirm hobbies/interests, names of family members to use confirm orientation - SS torequest photos Patient/Family Education: BI education Discharge Plan: Home with 24 hr supervision and out patient therapy Eliza Douglas OT, 03/03/2020, 11:22 * Oliva Martinez MS [facility]-ANESTHESIOLOGY PHYSICIAN ASSISTANT - 03/03/2020 0824 EDT Speech-Language Pathology Clinical Swallow & Aphasia Initial Evaluation Note ANESTHESIOLOGY PHYSICIAN ASSISTANT Diagnosis: Aphasia and oropharyngeal phase dysphagia Medical Diagnosis: Cerebral venous thrombosis and resultant intraparenchymal hemorrhage in the leftfrontotemporal area Date of Onset: 02/14/20 Date of Referral: 03/02/20 Start Time: 1000 Total Therapy minutes: 60 minute(s) (20 minutes swallow evaluation; 22 minutes communication evaluation) - ended session 18 minutes early due to patient's tolerance level SUBJECTIVE: So I don't know what happened, just so you know. I don't know, I'm getting confused again. What was the question again? Most of patient's utterances today could be characterized as word salad with many instances of jargon, neologisms, and paraphasias with occasional moments of intelligible discourse scattered throughout. OBJECTIVE: HPI: Per H&P note by Dr. Krish lantiguad 03/02/2020: 'Patient is a??50-year-old female with a history of postconcussive syndrome and tobacco abuse. ??She had noted headache on 02/13/2020 was evaluated at [facility], where CT scan of the head was reported as negative she was discharged to home. ??On 02/14/2020, she had continued headache, and brought back to [facility] where CT scan of the head showed a significant left temporoparietal intracranial hemorrhage with 2 mm shift, she was hypertensive at 170/100. ??She was transferred to the [facility] for further evaluation. ??On admission, she was seen by neurosurgery and??neurology. ??CT angiogram of the head and neck and CT venogram of the head demonstrated venous thrombosis the left internal jugular vein, sigmoid and transverse sinus as well as the veins of Trolard and Kristen. ??Intraparenchymal hemorrhage had increased slightly but there was stable midline shift with no evidence of herniation. ??She additionally was found to have a segmental right upper lobe acute pulmonary embolism , without evidence of right heart strain. Cerebral hemorrhage remained stable on serial CT scans she was started on intravenous heparin. ??On 02/16/2020, she did have a neurologic decline and hemorrhage was found to be expanded with midline shift, right hemiparesis was noted with decreased levelof consciousness and enlarging left pupil. ??She was taken urgently operating room on 02/16/[address] Piña who performed a left frontal, temporal and parietal craniectomy and evacuation of intraparenchymal hemorrhage. ? On 02/18/2020, acute care surgery placed a percutaneous gastrostomy tube. Hematology is also been involved and additional studies demonstrated left upper extremity DVT. ??Work-up for thrombosis has been nonconclusive. ?? She was initiated on IV heparin, converted to therapeutic dose Lovenox. Given dysphasia, a gastrostomy tube was placed on 02/18/[address] Branch. She has subsequently been advanced to a dysphagia level 4 diet. ?? Low molecular weight heparin level is recommended after third or fourth dose of Lovenox since was increased to therapeutic doses. Her course was incidentally notable for a hepatic lesion, and ultrasound suggestive of simple hepatic cyst with mild hepatic steatosis and borderline hepatomegaly.??PT, OT, ANESTHESIOLOGY PHYSICIAN ASSISTANT have all been involved in her care she is remained with significant limitations with overallmobility, self-cares, communication and swallowing function. Given these limitations, she was evaluated and determined to be an appropriate candidate for acute inpatient rehabilitation. ?? This patient's current status is similar to the pre-admission screening and is appropriate for inpatient rehabilitation admission.' CT HEAD WO CONTRAST (Order [id number]) Status: Final result (Exam End: 02/22/2020 21:02) ?? IMPRESSION 1. Postsurgical findings status post decompressive left hemicord craniectomy with increased soft tissue swelling and fluid in the overlying scalp and slightly increased size of extra-axial hemorrhageat the craniectomy site. ?? 2. Evolving parenchymal hemorrhage with associated benitez and white matter edema and local mass effect, predominantly in the left temporal lobe. ?? 3. Persistent high density thrombus at the junction of the left transverse and sigmoid sinuses. Past Medical History: Diagnosis Date ??? Left-sided nontraumatic intracerebral hemorrhage (HCC-CMS) 03/02/2020 Status post decompressive hemicraniectomy Patient Interview: Unable to obtain an accurate patient interview d/t presence of language impairment. Current Clinical Swallow Evaluation: Current Diet: Dysphagia 4 with Thin Liquids (02/23/20); PEG tube present Diet prior to admission: Suspect Regular Current Status: Cognitive Status: Patient was alert and somewhat cooperative during consultation. Aphasia present. Patient refusing formal communication tasks stating that she was unable to do any more of them. Respiratory Status: Respiratory status was judged to be WFL to support oral feeding. Clinical Swallow Evaluation: Patient/Family: Ynes consented by nodding her head yes to completing the clinical bedside swallow exam. Cranial Nerve & Oral Peripheral Motor Exam: A cranial nerve exam and oral peripheral motor exam were performed to determine patient's current upper motor neuron (UMN) function, lower motor neuron (LMN) function, and status of oral structures/functions as they relate to speech and swallowing. Results follow: CN V: Trigeminal (Motor) motor function of CN V (trigeminal) appears within functional limits CN V Trigeminal (Sensory) sensory function of CN V (trigeminal) appears within functional limits CN VII Facial (Motor) motor function of CN VII (facial) appears within functional limits; slight deviation on the R side during lip retraction which does not appear to impact speech or swallow function CN V II Facial (Sensory) unable to assess d/t patient's inability to follow instructions for this portion of the assessment CN IX Glossopharyngeal (Sensory) unable to assess d/t patient's inability to follow instructions for this portion of the assessment CN IX and X Glossopharyngeal and Vagus (Motor) lower R arch of soft palate at rest indicating R paralysis unable to visualize the soft palate upon phonation CN XI Spinal Accessory (Motor) unable to assess d/t patient's inability to follow instructions for this portion of the assessment CN XII Hypoglossal (Motor) tongue atrophy present on R indicating damage to CN XII tongue is concave L of median sulci of the tongue indicating paralysis tongue deviates to R upon protrusion indicating R genioglossus paralysis/ipsilateral LMN lesion Dentition: Adequate dentition. Laryngeal Excursion: Appears within functional limits with anterior tipping upon palpation. Vocal Quality: Patient presents with a clear vocal quality. Cough: Patient presents with a strong, non-productive cough. Positioning: Seen at bedside for evaluation. Consistencies Tested: Ynes was assessed with IDDSI Level 7- Regular and IDDSI Level 0- Thin. Methods of Delivery: Patient was able to self administer all items without ANESTHESIOLOGY PHYSICIAN ASSISTANT assistance using a spoon, cup and straw. Oral Phase Findings: Oral phase of swallowing appears within functional limits. Stimulus: IDDSI Level 7- Regular and IDDSI Level 0- Thin Strategies: multiple swallow Additional Training Completed: none Patient Response: Patient presents with adequate oral containment, functional chewing, and appropriate bolus transport for all consistencies tested. Patient demonstrates slightly decreased bolus manipulation within in the oral cavity, however, she is able to compensate effectively provided additional time. Pharyngeal Phase: Pharyngeal phase of swallowing appears mildly impaired. Stimulus: IDDSI Level 7- Regular and IDDSI Level 0- Thin Strategies: multiple swallow Additional Training Completed: none Patient Response: Patient presents with slightly delayed swallow response, adequate hyo-laryngeal excursion via palpation, and multiple swallows of each bolus. No change in vocal quality during or following the swallow. No overt signs/ symptoms of laryngeal penetration/ aspiration were identified. Esophageal Phase: No evidence of esophageal phase dysfunction. Compensatory Strategies: The following compensatory swallow strategies were attempted during today's evaluation: ??? Multiple swallows: appears effective at decreasing risk for laryngeal penetration/aspiration. Current Aphasia Evaluation: The Informal measures and Western Aphasia Battery were utilized to evaluate current speech-language/cognitive-linguistic function. Behavior: During evaluation today, patient presented as arousable, sleepy and cooperative. Speech-Language Function: Auditory Comprehension: Auditory comprehension appears significantly impacted. Further evaluation is warranted. The Western Aphasia Battery- Revised (WAB-R) was utilized today to evaluate Ynes Mccall receptive language skills. See details below: Subtest Raw Score Auditory Verbal Comprehension Yes/No Questions 6/60 Liam-Motor Evaluation/Motor Speech: Unable to accurately assess secondary to presence of aphasia, although appears within functional limits when patient expresses herself fluently. Voice: Patient presents with a clear vocal quality. Verbal Expression: The Western Aphasia Battery- Revised (WAB-R) was utilized today to evaluate Ynes Mccall expressive language skills. See details below: Subtest Raw Score Spontaneous Speech Information Content Score 5 = Correct responses to any 3 of the items in Task A plus some response to the picture in Task B Fluency, Grammatical Competence, and Paraphasias Score 7 = Phonemic jargon with semblance to [place] syntax and rhythm with varied phonemes and neologisms. May talk excessively; must be fluent; characteristic of severe Wernicke's aphasia. Spontaneous Speech Total 13 Spontaneous Speech Score 13 Repetition Repetition 0/100 Verbal Apraxia Rating WFL Repetition Total 0 Repetition Score 0 Naming & Word Finding Sentence Completion 0/10 Automatic Sequences: Countin, 3, 2, , December, December, January, February, April, and May. Days of the week: December, December, December. Months of the year: I can't do it. I can't do it right now. Conversational Level: Patient presents with fluent expression characterized by phonemic paraphasias, semantic paraphasias, neologisms and jargon. Reading Comprehension: Not formally evaluated. Further evaluation is warranted as tolerated by the patient. Written Expression: Not formally evaluated. Further evaluation is warranted as tolerated by the patient. Augmentative/Alternative Communication: Patient will be appropriate for diagnostic probes with light-tech augmentative/alternative communication strategies. Social-Pragmatic Skills: Eye contact: Patient with fair eye contact throughout session. Facial Expression/Affect: Patient demonstrates flat affect. Prosody/Inflection: Patient demonstrates poor vocal inflection. Initiation of Conversation: Patient demonstrates poor initiation in conversation. Turn-Taking: Patient demonstrates fair attention to non-verbal cues. Cognitive-Linguistic: Unable to formally evaluate secondary to presence of language impairment. Attention/Concentration: Adequate sustained attention for 30 minute session. Orientation: Patient is oriented to person, place and situation. Insight/Judgement: Patient appears to have functional insight and awareness into deficits, althoughit is difficult to fully assess d/t presence of patient's language impairment. PATIENT/FAMILY EDUCATION: Patient/Family Education: Unable to perform patient/family education today secondary to patient's tolerance level. Family was not present to receive patient/family education. Patient/Family Goals: Patient was unable to state goals. Patient's family was not present during today's evaluation. Assessment /CLINICAL IMPRESSIONS: Ynes White is a female 50 y.o. 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 She was seen today by Speech Language Pathology for a clinical swallow evaluation secondary to concerns for oropharyngeal dysphagia, and/or risk of laryngeal penetration/aspiration and for an aphasia evaluation. Ynes White currently presents with a mild oropharyngeal phase dysphagia characterized by slightly reduced bolus manipulation, slightly delayed swallow response, adequate hyo-laryngeal excursionvia palpation, and multiple swallows of each bolus. No overt signs/ symptoms of laryngeal penetration/ aspiration were identified today. Etiology of dysphagia is neurogenic. CN exam suggests involvement of CN XII (Hypoglossal). Damage to CN XII (Hypoglossal) can result in inability to position foodfor chewing, resulting in food getting pocketed in cheeks, poor bolus manipulation, poor bolus preparation, reduced A-P bolus transfer, resulting in oral residue after the swallow, and/or poor tonguebase retraction to the posterior pharyngeal wall, resulting in post-swallow residue in the valleculae. Reduced lingual pressure due to damage to CN XII may also result in decreased pressure required to drive the bolus through the UES. Patient demonstrates the following aspiration risk factors: swallowing problems and high risk population for silent aspiration (CVA). Patient does not demonstrate the following aspiration risk factors: more than one medical dx, weight loss, dependence on others for feeding, dependence on others fororal care, decayed teeth, tube feeding, smoking, suctioning, bedridden and delirium indicators. Based on patient's oral care, likelihood of presence of aspiration, and immune system status, Ynes remains at slightly increased risk of aspiration at this time (Gorge, 2002; Óscar et. al, 2005, 2008, 2012). Compensatory strategies of slightly modified textures (Dysphagia 4), small bites/sips, and use of multiple swallows appear effective in decreasing risk of aspiration. Prognosis for improvement in swallow function is judged to be good at this time secondary to anticipated neurologic recovery. Anticipate patient will tolerate a Dysphagia 4 diet level with thin liquids and may progress to a regular diet with skilled 1:1 intervention. Ynes White also currently presents with severe expressive and receptive aphasia characterizedby deficits in auditory comprehension and expressive language. Patient appears to be able to followsome basic 1-step commands effectively provided context, models, slow auditory presentation of information, and tactile cues as needed. Expressive language is characterized as fluent but mostly consists of word salad with many instances of jargon, neologisms, and paraphasias with occasional moments of intelligible discourse scattered throughout. Stefanies discourse could also be described as tangential and perseverative (she appears to perseverate on events surrounding her mother's today). These deficits impact the patient's ability to functionally communicate her wants, needs, and ideas and hold conversation. Based on today's evaluation, it has been determined that the patient demonstrates deficits that impact functioning in daily activities and hinder participation in life situations.??Basic receptive and expressive language function appears to be impacted based on evaluation. Patient currently requires assistance from others to communicate basic wants and needs and direct her medical care. Pt will continue to benefit from her needs being anticipated and simplified information presented to her. Information should be repeated and said in different ways, and augmented with pictures and gestures. The patient is demonstrating strengths in motivation and some intact basic expressive language skills which should be utilized during the patient's plan of care to maximize gains. Contextual factors that may impact the patient's ability to progress toward rehab goals include: severity of language impairment, need for physical assistance, tolerance level for therapy, and pain. Based on patient's tolerance level today, it is recommended that patient participate in 30 minute BID sessions initially and build toward 60 minute sessions as tolerated. Given patient's age, independence prior to admission, and social/occupational demands, she would benefit from intensive ANESTHESIOLOGY PHYSICIAN ASSISTANT intervention. Based on the patient's rehab potential, motivation, prior level of function, and the contextual factors, the patient's prognosis is considered good. It is anticip ated that the patient will make functional gains in expressive and receptive language skills with intensive skilled 1:1 speech language pathology services in the inpatient rehabilitation setting. Functional Communication Measures ([place] [employer], 2002). The Functional Communication Measures (FCM???s) are a series of 7 point rating scales, ranging fromleast functional (Level 1) to most functional (Level 7). They have been developed by [employer] to describe different aspects of patient???s functional communication and swallowing abilities over the course of ANESTHESIOLOGY PHYSICIAN ASSISTANT intervention. Spoken Language Comprehension Level 2: With consistent, maximal cues, the individual is able to follow simple directions, respond to simple yes/no questions in context, and respond to simple words orphrases related to personal needs. Spoken Language Expression Level 3: The communication partner must assume responsibility for structuring the communication exchange, and with consistent and moderate cueing, the individual can produce words and phrases that are appropriate and meaningful in context. Swallowing Level 6: Swallowing is safe, and the individual east and drinks independently and may rarely require minimal cueing. The individual usually self-cues when difficulty occurs. May need to avoid specific food items (e.g., popcorn and nuts), or require additional time (due to dysphagia). GOALS: Snf Goals: Projected Functional Communication Measures at discharge: Spoken Language Comprehension Level 4: Individual consistently responds accurately to simple yes/noquestions and occasionally follows simple directions without cues. Moderate contextual support is usually needed to understand complex sentences/messages. The individual is able to understand limited conversations about routine daily activities with familiar communication partners. Spoken Language Expression Level 4: The individual is successfully able to initiate communication using spoken language in simple, structured conversations in routine daily activities with familiar communication partners. The individual usually requires moderate cueing, but is able to demonstrate use of simple sentences (i.e., semantics, syntax, and morphology) and rarely uses complex sentences/messages. Swallowing Level 7: Individual's ability to eat independently is not limited by swallow function. Swallowing is safe and efficient for all consistencies. Compensatory strategies are effectively used when needed. Short Term Goals: Continued Evaluation: Goal #1: The patient will complete the ANESTHESIOLOGY PHYSICIAN ASSISTANT evaluation in the areas of: verbal expression, auditory comprehension, reading comprehension, and written expression, as tolerated by the patient. Auditory Comprehension: Goal #1: Patient will identify objects in a visual field of 2-3 with >70% accuracy provided moderate cues for attention and information processing. Goal #2: Patient will answer simple yes/no questions immediately after review with >70% accuracyprovided moderate cues for attention and initiation. Goal #3: Patient will follow simple 1-step commands related to functional environment with >70% accuracy provided moderate verbal/tactile/visual cues in order to increase functional integration into environment. Expressive Language: Goal #1: Patient will recite automatic speech tasks given moderate cues with >70% accuracy. Goal #2: Patient will name objects (real or pictured) to confrontation with >70% accuracy provided moderate verbal cues. Swallowing: Goal #1: Patient will masticate and manipulate boluses of regular food (IDDSI Level 7) adequately to safely consume least restrictive diet provided no cues. Goal #2: Patient will safely ingest diet trials of regular food (IDDSI Level 7) with the ANESTHESIOLOGY PHYSICIAN ASSISTANT with no overt s/sx of penetration/aspiration in order to safely consume least restrictive diet provided nocues. Plan /RECOMMENDATIONS: Patient will continue to benefit for further ANESTHESIOLOGY PHYSICIAN ASSISTANT intervention in this setting to address dysphagia and aphasia management and intervention needs. Recommend inpatient rehabilitation ANESTHESIOLOGY PHYSICIAN ASSISTANT services: Patient will be seen for a minimum of 5x/week @ 30minutes BID due to current tolerance level. Swallowing Recommendations: Diet: Dysphagia 4 Liquids: IDDSI Level 0- Thin Medications: Medication should be administered crushed with pureed foods or whole with thin liquidsif pt prefers. Precautions: ?? small bites/sips ?? 1 bite at a time ?? complete oral care following each meal ?? Patient needs assist with set up of meals. ?? Patient should eat in a low stimulation environment to increase attention to meal time. ?? When eating, patient should be upright at 90 degrees as tolerated. ?? Patient may use a straw when drinking liquids. Oral Care Precautions: Individuals with dysphagia are at increased risk for aspiration. Aspiration occurs when food, liquid, or saliva travels down the airway (to the lungs) instead of down the esophagus (to the stomach). Aspiration can have very serious consequences, including aspiration pneumonia. The mouth contains bacteria that can be dangerous if it enters the lungs and can increase risk of development of aspiration pneumonia. Therefore, it is very important for individuals with dysphagia to follow strict oral care guidelines to reduce the risk of aspirating dangerous oral bacteria. ?? Remove any visible debris (pieces of leftover food, etc.) before brushing teeth. ?? Bonanza teeth thoroughly before and after ALL intake (meals, snacks, etc.). ?? Bonanza tongue from back to front. ?? Bonanza the roof of your mouth and cheek pockets. ?? Clean mouth thoroughly each morning and at bedtime. ?? Rinse mouth with water after brushing teeth. ?? Floss teeth daily. ?? Mouth wash is NOT a substitute for brushing teeth. Communication Access and Shared Decision Making Recommendations Please support communication access and shared decision making ability by doing the following: ?? Support Comprehension: ?? Have a pen and paper ready when communicating. ?? Please present information slowly and simplify. Augment with drawings, diagrams, gestures and pointing. ?? Ask one question at a time. ?? Have only one person speak at a time. ?? Environmental modifications: ?? Simplify the environment: ?? Carryover/Discharge and Healthcare Decision making considerations ?? Will need family support for the successful carryover of discharge recommendations. ?? Currently comprehension of non-contextual information is a barrier Oliva Martinez MS CCC-ANESTHESIOLOGY PHYSICIAN ASSISTANT 03/03/2020 13:27 * Milli Singh, PT - 03/03/2020 0718 EDT [facility] Rehabilitation Therapy Inpatient Rehabilitation [facility] Physical Therapy Initial Evaluation Note Date of Service: 03/03/2020 Reason for Referral: Evaluate and treat consistent with acute rehabilitation admission Mobility Precautions Activity: Level of risk of Harm B, Activity as tolerated Miscellaneous Precautions/Restrictions Additional Precautions Information: L Bone flap precautions (helmet OOB), R Rooke Boot in bed, PEG tube SUBJECTIVE: I want to do it but I just can't right now. On first attempt at 11:00. Endorses head pain, states that if she moves again the head pain will get worse. When asked for pain number 0-10 pt states several numbers jumbled together. At 11:30 pt agreeable to OOB activity. OBJECTIVE: PatientProfile: Patient is a 50 y.o. female admitted on 03/02/2020 secondary to Encounter for other specified aftercare [Z51.89] Cerebral venous thrombosis [G08] The patient lives at [address] [place] [id number] Rutherford's H and P: Patient is a??50-year-old female with a history of postconcussive syndrome and tobacco abuse. ??She had noted headache on 02/13/2020 was evaluated at [facility], where CT scan of the head was reported as negative she was discharged to home. ??On 02/14/2020, she had continued headache, and brought back to [facility] where CT scan of the head showed a significant left temporoparietal intracranial hemorrhage with 2 mm shift, she was hypertensive at 170/100. ??She was transferred to the [facility] for further evaluation. ??On admission, she was seen by neurosurgery and??neurology. ??CT angiogram of the head and neck and CT venogram of the head demonstrated venous thrombosis the left internal jugular vein, sigmoid and transverse sinus as well as the veins of Trolard and Kristen. ??Intraparenchymal hemorrhage had increased slightly but there was stable midline shift with no evidence of herniation. ??She additionally was found to have a segmental right upper lobe acute pulmonary embolism , without evidence of right heart strain. Cerebral hemorrhage remained stable on serial CT scans she was started on intravenous heparin. ??On 02/16/2020, she did have a neurologic decline and hemorrhage was found to be expanded with midline shift, right hemiparesis was noted with decreased levelof consciousness and enlarging left pupil. ??She was taken urgently operating room on 02/16/[address] Piña who performed a left frontal, temporal and parietal craniectomy and evacuation of intraparenchymal hemorrhage. ? On 02/18/2020, acute care surgery placed a percutaneous gastrostomy tube. Hematology is also been involved and additional studies demonstrated left upper extremity DVT. ??Work-up for thrombosis has been nonconclusive. ?? She was initiated on IV heparin, converted to therapeutic dose Lovenox. Given dysphasia, a gastrostomy tube was placed on 02/18/[address] Branch. She has subsequently been advanced to a dysphagia level 4 diet. ?? Low molecular weight heparin level is recommended after third or fourth dose of Lovenox since was increased to therapeutic doses. Her course was incidentally notable for a hepatic lesion, and ultrasound suggestive of simple hepatic cyst with mild hepatic steatosis and borderline hepatomegaly.??PT, OT, ANESTHESIOLOGY PHYSICIAN ASSISTANT have all been involved in her care she is remained with significant limitations with overallmobility, self-cares, communication and swallowing function. Given these limitations, she was evaluated and determined to be an appropriate candidate for acute inpatient rehabilitation. Safety Assessment / Living Environment Home environment: Apartment Basic Home Layout Home layout: One level Entrance Stairs: No entrance stairs Home Equipment: None Support Support Person: Significant other, Siblings Amount of Support: 24 hour supervision Living Arrangement Lives With: Significant Other Living Arrangement Comments: Boyfriend lives with her but works during day, siblings can provide daytime coverage if needed. 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 Back pain ??? Chronic low back pain ??? Encounter for insertion or removal of intrauterine contraceptive device ??? Nicotine dependence, unspecified, uncomplicated ??? Perimenopausal ??? Post concussion syndrome ??? Tobacco abuse ??? Cerebral venous sinus thrombosis ??? Cerebral venous thrombosis ??? Brain herniation (HCC-CMS) ??? Cerebral edema (HCC-CMS) ??? Left-sided nontraumatic intracerebral hemorrhage (HCC-CMS) Past: Past Medical History: Diagnosis Date ??? Left-sided nontraumatic intracerebral hemorrhage (HCC-CMS) 03/02/2020 Status post decompressive hemicraniectomy No past surgical history on file. Medications Current Medications: Current medications reviewed Arousal, Attention, and Cognition: Decreased arousal, groggy on arrival. Difficult to assess orientation, when asked orientation questions pt replies with intelligible but unrelated speaking. Defer to ANESTHESIOLOGY PHYSICIAN ASSISTANT/OT for cognition. Cardiopulmonary: Vital Signs: Activity Blood Pressure (mmHg) Heart rate (bpm) Respiratory rate (breaths/min) Oxygen Sat/ Fractions of inspired Oxygen SPO2/FIO2 % Pre 118/79 101 97% on RA During Post 133/86 97 98% on RA Integumentary/Anthropometric Characteristics: Craniectomy incision on L Lateral scalp, open to air, C/D/I. PEG tube in abdomen. Head to toe not visualized as pt was fully clothed, defer to RN/MD notes for details. - - Range of Motion and Joint Integrity: Active Range of Motion: Within normal limits except as noted Upper Quarter: Assessed functionally due to pt difficulty with instructions. Left Upper Extremity: functionally appears WNL Right Upper Extremity: functionally appears WNL Cervical Spine: looks about room with no apparent deficit Lower Quarter: Left Lower Extremity: knee and ankle functionally WNL, unable to flex hip against gravity (using hands to assist, though difficult to assess if this is true weakness or difficulty understanding instructions) Right Lower Extremity: knee and ankle functionally WNL, unable to flex hip against gravity (using hands to assist, though difficult to assess if this is true weakness or difficulty understanding instructions) Lumbar Spine: NE, not a priority at this time Muscle Performance: Strength: assessed functionally in sitting, pt with difficulty following instructions for formal MMT Upper Quarter: defer to OT for details Left Upper Extremity: >3/5 grossly Right Upper Extremity: >3/5 grossly Cervical Spine: NE Lower Quarter: Left Lower Extremity: hip flexion <3/5, quads >3+/5, DF=5/5 Right Lower Extremity: hip flexion <3/5, quads >3+/5, DF=5/5 LumbarSpine: NE Sensation, Reflexes, and Nerve Integrity: Light Touch Sensation: Upper Quarter: unable to formally assess due to expressive and receptive aphasia and cog deficits Lower Quarter: unable to formally assess due to expressive and receptive aphasia and cog deficits, responds to light touch on feet and lower legs by opening eyes, when asked about numbness pt begins talking about pain Neuromotor Function/Development: Motor control: appears able to isolate movements at all joints functionally. Movement patterns: pain in LLE with movement and WB'ing resulting in antalgic movement patterns. Nosynergy noted. Coordination: no ataxia noted, unable to assess finger to nose, heel to torre due to difficulty withinstructions and limited activity tolerance Speech/Communication/Oral motor control: expressive aphasia, speech occasionally unintelligible, speech unrelated to topic of conversation at times Balance, Mobility, and Gait: Balance: Sitting Balance Static: supervision x 1 Dynamic: Standing balance Static: min A x 1 without UE support Dynamic: mod A x 1 to reach outside KATHRYN Mobility: Bed Mobility: Sit-->Supine: modified independent with flat bed and no rails. Supine-->Sit: modified independent with flat bed and no rails. Transfers: Bed<->Chair: stand-step with min contact assist of 1 . Wheelchair: Not a goal at this time. Gait: The patient ambulates with min contact assist of 1 using no device for 75 feet. Gait deviations: short step length, decreased L stance time, antalgic gait, decreased foot clearance B, increased DL support time Stairs: NE on this day due to pain, fatigue and limited activity tolerance. Self-Care, Home Management, Work, and Leisure: Completed toilet transfers with min A today, defer to OT for details. Patient-Reported Outcome Measures: Informed Consent: Informed Consent: The patient consented to the Physical Therapy evaluation. The patient agrees to and understands the Physical Therapy treatment plan and goals. Interventions Completed Today: PT Treatment 1 Start Time: 1130 Individual Therapy (minutes): 25 Minutes Total Minutes Treatment 1: 25 Home environment: Apartment Home layout: One level Entrance Stairs: No entrance stairs Patient/Family Education: Purpose of PT, goals, acute rehab setting and frequency and intensity of services Learner Learner: Patient Method: Verbal Barriers to Learning: Cognition, Language(aphasia) Outcome: Needs practice, Needs reinforcement, Requires assist Team Communication: With team in rounds. Assessment: Pt is 50 y.o. female presenting with impairments consistent with L ICH. 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 Pt presents with decreased participation in life roles, and activity limitations with physical assist required for functional transfers and ambulation, inability to cover household distances ambulating at this time, and inability to complete stairs at this time. The primary contributing factors for these limitations include impaired reactive and anticipatory postural control, BLE weakness, poor activity tolerance, pain in head and LLE, fatigue and decreased arousal. Positive functional prognosis is indicated by seemingly strong social supports, high prior level offunction, ambulatory level on day one of treatment. Negative functional prognosis is indicated by difficulty participating in full session at [facility] due to pain and fatigue, and medical complexities including L jugular thrombus, LUE DVT, R PE. Pt will benefit from physical therapy in order to address these impairments and activity limitations in order to maximize functional independence. It is likely that patient will discharge home with 24 hour supervision. Physical Therapy Diagnosis:see above Physical Therapy Prognosis:see above Short-Term Goals: 1 week 1. Pt will demonstrate stand step transfers with supervision x 1 to all sitting surfaces in her room. 2. Pt will ambulate 100-150' c supervision x 1 in order to work up to household distance ambulation. 3. Pt will tolerate completion of Escobar and 6MWT to establish baseline measures for progress. 4. Pt will complete four 6.5 stairs ascending and descending with B rails with min contact A x 1. Long-Term Goals: 2-3 weeks 1. The patient will be able to perform stand step transfer c mod I in order to access all sitting surfaces. 2. The patient will be able to ambulate 100-250' covering household distances c mod I in order to access home environment. 3. The patient will be able to perform HEP independently with handout. 4. Pt will demonstrate stable vital signs with all functional mobility noted above. 5. Pt and family with no further questions regarding diagnosis and POC. 6. Pt will demonstrate MCID improvement in 6MWT indicating improved ambulation endurance. 7. Pt will demonstrate LALO improvement in Escobar Balance Assessment indicating decreased fall risk. PLAN: Necessity: Physical therapy will be provided by the physical therapist and/or physical therapist marketing assistant manager when medically appropriate Times Per Week: 1-2x/day, 5-6x/week Intensity: 60-90 minutes Duration: Duration of rehabilitation admission Interventions May Include: Therapeutic activities, Therapeutic exercise, Neuromuscular re-education, Gait training Patient/Family Education: Discharge planning, Patient education, Equipment, Recommendations, Falls Prevention, Family/caregiver education, Role of physical therapy/occupational therapy/rehabilitation, Safety, Risk reduction education, Home exercise program, Instruction in precautions, Symptom management Further Data Further Data: IRF-SLOANE assessment Further Data Comments: 6MWT, Escobar, 5 x sit to stand Recommended Discharge Destination Recommended Discharge Destination: Home with family support/supervision Recommended Discharge Services Therapy Specific Services: Home therapy with supervision, Physical therapy Next Session to Include: finish IRFPAI, Shawn, 5x sit to stand, 6MWT IRFPAI: car, stairs, picking up object Pager: [phone] Milli Singh, PT 03/03/2020 12:53 documented in this encounter H&P Notes * Jaden Rutherford MD - 03/02/2020 2887 EDT Acute Rehab Admission H+P Admit Date: 03/02/2020 Date of Service: 03/02/2020 PCP: Alejandrina Carrillo Chief Complaint: Patient is being admitted to Acute rehabilitation following a central venous thrombosis with left temporoparietal hemorrhage. History is obtained from full chart review and the results are summarized below. HPI Patient is a 50-year-old female with a history of postconcussive syndrome and tobacco abuse. She had noted headache on 02/13/2020 was evaluated at [facility], where CT scan of the head was reported as negative she was discharged to home. On 02/14/2020, she had continued headache, and brought back to [facility] where CT scan of the head showed a significant left temporoparietal intracranial hemorrhage with 2 mm shift, she was hypertensive at 170/100. She was transferred to the [facility] for further evaluation. On admission, she was seen by neurosurgery and neurology. CT angiogramof the head and neck and CT venogram of the head demonstrated venous thrombosis the left internal jugular vein, sigmoid and transverse sinus as well as the veins of Trolard and Kristen. Intraparenchymal hemorrhage had increased slightly but there was stable midline shift with no evidence of herniation. She additionally was found to have a segmental right upper lobe acute pulmonary embolism , without evidence of right heart strain. Cerebral hemorrhage remained stable on serial CT scans she was started on intravenous heparin. On 02/16/2020, she did have a neurologic decline and hemorrhage was found to be expanded with midline shift, right hemiparesis was noted with decreased level of consciousness and enlarging left pupil. She was taken urgently operating room on 02/16/[address] Piña who performed a left frontal, temporal and parietal craniectomy and evacuation of intraparenchymal hemorrhage. On 02/18/2020, acute care surgery placed a percutaneous gastrostomy tube. Hematology is also been involved and additional studies demonstrated left upper extremity DVT. Work-up for thrombosis has beennonconclusive. She was initiated on IV heparin, converted to therapeutic dose Lovenox. Given dysphasia, a gastrostomy tube was placed on 02/18/[address] Branch. She has subsequently been advanced to a dysphagia level 4 diet. Low molecular weight heparin level is recommended after third or fourth dose of Lovenox since was increased to therapeutic doses. Her course was incidentally notable for a hepatic lesion, and ultrasound suggestive of simple hepatic cyst with mild hepatic steatosis and borderline hepatomegaly. PT, OT, ANESTHESIOLOGY PHYSICIAN ASSISTANT have all been involved in her care she is remained with significant limitations with overall mobility, self-cares, communication and swallowing function. Given these limitations, she was evaluated and determined to be an appropriate candidate for acute inpatient rehabilitation. This patient's current status is similar to the pre-admission screening and is appropriate for inpatient rehabilitation admission. PMH PSH No past medical history on file. No past surgical history on file. Social History Family History Social History Tobacco Use ??? Smoking status: Current Every Day Smoker Packs/day: 0.25 Years: 15.00 Pack years: 3.75 ??? Smokeless tobacco: Never Used Substance Use Topics ??? Alcohol use: Yes Family History Problem Relation Age of Onset ??? Cancer Mother 72 Liver ??? Cancer Father 79 mesothelioma ??? Cancer Maternal Grandmother 80 Medications Medications Prior to Admission Medication Sig Dispense Refill Last Dose ??? acetaminophen (TYLENOL EXTRA STRENGTH) 500 mg tablet 2 tab(s) orally every 6 hours ??? acetaminophen (TYLENOL) 500 mg tablet Take 2 Tabs by mouth every 6 hours. ??? [START ON 03/03/2020] aspirin chewable 81 mg tablet Take 1 Tab by mouth daily. ??? buPROPion (WELLBUTRIN XL) 300 mg XL tablet TK 1 T PO QAM 0 Taking ??? calcium carbonate (TUMS) 200 mg calcium (500 mg) tablet,chewable Take 1 Tab by mouth 4 times daily as needed for Heartburn. ??? docusate (COLACE) 50 mg/5 mL liquid Take 10 mL by mouth 2 times daily. ??? enoxaparin (LOVENOX) 100 mg/mL syringe Inject 90 mg into the skin every 12 hours for 28 days. 51 Syringe 0 ??? estradiol-norethindrone (COMBIPATCH) 0.05-0.14 mg/24 hr patch 1 PATCH applied topically 2 timesa week ??? folic acid (FOLVITE) 1 mg tablet Take 1 mg by mouth daily. Taking ??? guaiFENesin 200 mg tablet Take 1 Tab by mouth every 6 hours as needed for Other (wet cough). 15Tab 0 ??? [START ON 03/03/2020] lisinopriL (PRINIVIL) 20 mg tablet Take 1 Tab by mouth daily for 28 days. 28 Tab 0 ??? melatonin 3 mg tablet Take 1 Tab by mouth at bedtime. ??? [START ON 03/03/2020] Multivitamins with minerals + ferrous gluconate (CENTRUM) 9 mg iron/15 mL liquid oral solution 15 mL by per g tube route daily for 28 days. 420 mL 0 ??? [START ON 03/03/2020] nicotine (NICODERM CQ) 7 mg/[address] 1 Patch onto the skin every 24 hours for 28 days. 28 Patch 0 ??? OLANZapine (ZYPREXA) 5 mg tablet Take 5 mg by mouth daily. Taking ??? omeprazole (PRILOSEC) 40 mg capsule TK ONE C PO QD 0 Taking ??? ondansetron, PF, (ZOFRAN) 4 mg/2 mL solution Inject 2 mL into the vein every 4 hours as needed for Nausea. 1 Vial 0 ??? [START ON 03/03/2020] pantoprazole (PROTONIX) 40 mg tablet Take 1 Tab by mouth daily for 28 days.28 Tab 0 ??? Prazosin (MINIPRESS) 1 mg capsule TK ONE C PO HS 1 Taking ??? propRANolol (INDERAL) 10 mg tablet TK 1 T PO ON AN EMPTY STOMACH Q 8 H PRN 0 Taking ??? QUEtiapine (SEROQUEL) 50 mg tablet Take 100 mg by mouth at bedtime. 1 Taking ??? senna (SENOKOT) 8.6 mg tablet Take 1 Tab by mouth 2 times daily. ??? VITAMIN B COMPLEX-100 ORAL Take by mouth daily. Taking Allergies Allergies Allergen Reactions ??? Citalopram Other reaction(s): increased anxiety ??? Duloxetine Other reaction(s): increased anxiety ??? Pregabalin Other reaction(s): dizziness ??? Zolpidem Other reaction(s): sleep walking with over 5 mg Review of Systems: A ten point review of systems was performed. Pertinent positives are listed below, all others are negative: Objective/Physical Exam: VS: Patient Vitals for the past 8 hrs: BP Pulse Heart Rate Resp Temp SpO2 O2 Device FIO2 % 03/02/20 1341 137/78 -- 84 BPM 16 (!) 35.5 ??C (95.9 ??F) -- None 98 % 03/02/20 1315 137/78 84 -- 16 (!) 35.5 ??C (95.9 ??F) 98 % -- -- Pain: Patient Vitals for the past 8 hrs: Numeric Pain Level (Scale 1-10) 03/02/20 1402 3 Weight: Weight : 84.7 kg (186 lb 11.2 oz) BMI: Body mass index is 29.24 kg/m??. Glucose Readings (last 8 readings): No results for input(s): GLUCOSEFINGE in the last 72 hours. Exam: Gen: Alert, pleasant, no distress HEENT: Left decompressive hemicraniectomy site is full with ghassan in place and surgical incision.No clear visual field cut. No facial droop. Pharynx is clear. Neck supple. Mucosal membranes are moist Skin: no rashes Cardiac: Cor RRR Pulmonary: clear to auscultation bilaterally Abdomen: normal bowel sounds, soft, nontender, PEG tube is intact Musculoskeletal: no joint tenderness, deformity or swelling, no muscular tenderness noted, full range of motion without pain Neuro: She is awake, following intermittent commands, expressive greater than receptive aphasia. Affect: Intermittently tearful Motor: Strength no clear focal weakness, although there may be some relative right lower extremity weakness. Tone normal Reflexes: trace Sensation: No extinction no clear focal sensory loss Cerebellar: no tremors Station and gait: Deferred Pressure Ulcer Present on admission? No Data Review: Labs: I have personally reviewed CBC: Lab Results Component Value Date WBC 6.43 03/02/2020 RBC 4.10 03/02/2020 HGB 13.2 03/02/2020 HCT 39.6 03/02/2020 MCV 97 03/02/2020 MCH 32.2 03/02/2020 MCHC 33.3 03/02/2020 PLT 462 (H) 03/02/2020 NEUTROABS 5.03 02/14/2020 BMP: Lab Results Component Value Date NA 134 (L) 03/02/2020 K 4.8 03/02/2020 CL 102 03/02/2020 CO2 22 03/02/2020 BUN 20 03/02/2020 CREATININE 0.45 (L) 03/02/2020 CALCIUM 8.8 02/14/2020 MG 1.7 03/02/2020 PHOS 5.6 (H) 03/02/2020 LABALBU 3.9 05/07/2001 Other Studies: N/A Assessment/Problems: (update problem list daily as appropriate) Patient Active Problem List Diagnosis Date Noted ??? Brain herniation ([facility]) 02/17/2020 Priority: Medium ??? Cerebral edema ([facility]) 02/17/2020 Priority: Medium ??? 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 (H)Cerebral venous thrombosis 02/14/2020 Priority: Medium ??? Encounter for insertion or removal of intrauterine contraceptive device 02/12/2020 Priority: Medium ??? Nicotine dependence, unspecified, uncomplicated 02/12/2020 Priority: Medium ??? Perimenopausal 02/12/2020 Priority: Medium ??? Post concussion syndrome 02/12/2020 Priority: Medium ??? Tobacco abuse 12/02/2012 Priority: Medium ??? Chronic low back pain 10/13/2012 Priority: Medium ??? Back pain 09/25/2012 Priority: Medium This patient's current status is similar to the pre-admission screening and is appropriate for inpatient rehabilitation admission. Patient has had a significant decline in function as the result of left intracerebral hemorrhage. She has impaired cognition, communication, swallowing function self care, balance, and functional mobility. An acute inpatient rehab setting is medically necessary for physician monitoring of nutrition, anticoagulation, 24 hour nursing care, and acute level therapies including PT, OT, ANESTHESIOLOGY PHYSICIAN ASSISTANT for 3 hours per day, 5 days per week. Patient has excellent rehab potential and is expected to be independent with functional mobility and self-care at discharge. Patient's preadmission medications have been fully reviewed and reconciled. Medication adjustments have been made according to the present needs at the time of admission Plan: 1. Left frontal intraparenchymal hemorrhage: Status post decompressive craniectomy. Patient with residual mild right-sided weakness, significant expressive and receptive aphasia, dysphagia. Full PT, OT, ANESTHESIOLOGY PHYSICIAN ASSISTANT assessments and therapies to address mobility, self care communication and swallowing function. 24 hour rehab nursing for self care deficits Helmet on when out of bed Dysphagia level 4 diet with thin liquids Impairment Group Stroke: Right body involvement (left brain) 2. 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 Evidence of left IJ, sigmoid and transverse sinuses as well. Now on therapeutic dose Lovenox. Continued follow-up with hematology and thrombosis clinic in 2-4 weeks. Plan to obtain a low molecular weight heparin level, likely tomorrow. 3. Right upper lobe pulmonary embolism, left upper extremity DVT: Now on therapeutic dose Lovenox. 4. History of anxiety/depression: Monitor clinically. Currently on Seroquel at at bedtime. Considermedical psychology consultation as language deficits allow. DVT Prophylaxis: Lovenox Discharge Plan: Home with home health ELOS: 2-3 weeks Jaden Rutherford MD 03/02/2020 14:08 documented in this encounter Consult Notes * Maria Victoria Hernandez MD - 03/18/2020 1546 EDT 03/18/2020 1545 Patient's lovenox level is supratherapeutic today. MARSHALL, in the setting of volume depletion and ACEI. She has had waxing and waning headache since admission to rehab. Too tired to participate in OT this afternoon, while she had done well the am. No new neurologic changes, besides fatigue, ongoing QUINONES. But she is requiring dilaudid pretty regularly. [place] nauseated today. Plan: Hold lovenox today and tomorrow (ordered) Recheck LMWH level tomorrow am (ordered) - discussed with heme today Will need to call heme tomorrow and discuss plan moving forward Head CT today. We do not have CT scanner here so have to send to ED for this. To ED - arranged. Neurosurgery resident, Dr. Pickett knows patient from prior is aware of transfer and imaging. Note: She has been continued on baby aspirin as well, per prior MAR and primary team recs - got this this am as well. MD David * Alicia Gabriel RD - 03/04/2020 150 EDTAssociated Order(s): CONSULT NUTRITION Nutrition Assessment Note: [facility] Alicia Gabriel RD, RD, CD ([facility] Dietitian Phone [phone]) Patient Name: [facility] Admission Date: 03/02/2020 Hospitalization at [facility]: 02/14/20 Rehab Admission Dx: Left-sided nontraumatic intracerebral hemorrhage (HCC-CMS) Reason for Visit: Consult BACKGROUND DATA Clinical Summary: Ynes White is a 50 y.o. female admitted to acute rehab with left temporoparietal hemorrhage status post decompressive craniectomy; s/p PEG placement 02/18/20 Past Medical History: Diagnosis Date ??? Left-sided nontraumatic intracerebral hemorrhage (HCC-CMS) 03/02/2020 Status post decompressive hemicraniectomy Interview/Subjective: Spoke to nursing in [place] as patient was just starting to eat lunch. Poor po intake reported. Current Nutrition Orders: DIET DYSPHAGIA 4 with thin liquids Oral supplement: none Enteral: Nutren 1.5 at 240 ml 3 times daily; hold for po >50 % meal; Prosource 60 ml 2 times daily; Free water 120 every 6 hours Estimated Nutrition Intake: 25 % of meals If full tube feedings provided patient will receive 1320 kcals and 109 g protein from formula and prosource Nutrition-Focused Physical Findings: GI: last BM 03/04/20; +PEG Skin: surgical laceration/incision Edema: trace RLE and LLE Anthropometrics: Height: 170.2 cm (67) Wt Readings from Last 6 Encounters: 03/02/20 84.7 kg (186 lb 11.2 oz) 03/02/20 89.9 kg (198 lb 1.6 oz) 02/14/20 Weight-98.5 kg (217 lbs) BMI: Body mass index is 29.24 kg/m??. Adjusted weight: 73 kg Weight Change: weight loss of 31 lbs over 2.5 weeks, ? Accuracy of weight readings Nutrition-Related Lab Values of Concern: Lab Results Component Value Date/Time HGB 13.2 03/02/2020 06:12 HCT 39.6 03/02/2020 06:12 WBC 6.43 03/02/2020 06:12 NA 134 (L) 03/02/2020 06:12 K 4.8 03/02/2020 06:12 CO2 22 03/02/2020 06:12 CL 102 03/02/2020 06:12 BUN 20 03/02/2020 06:12 CREATININE 0.45 (L) 03/02/2020 06:12 HGBA1C 5.4 02/14/2020 17:48 PHOS 5.6 (H) 03/02/2020 06:12 MG 1.7 03/02/2020 06:12 TRIG 176 02/18/2020 05:44 ALT 17 05/07/2001 11:00 AST 15 05/07/2001 11:00 ALKPHOS 60 05/07/2001 11:00 TBIL 0.3 05/07/2001 11:00 Nutrition-Related Medications: Current Facility-Administered Medications: acetaminophen (TYLENOL) tablet 650 mg oral Q4H PRN amino acids-protein hydrolysate (PRO SOURCE NOCARB) packet 60 mL feeding tube BID aspirin chewable tablet 81 mg oral DAILY bisacodyL (DULCOLAX) suppository 10 mg rectal Q48H PRN calcium carbonate (TUMS) 200 mg calcium (500 mg) per chewable tablet tablet,chewable 1 Tab oral QIDPRN docusate (COLACE) liquid 100 mg oral BID enoxaparin (LOVENOX) injection 70 mg subcutaneous Q12H guaiFENesin tablet 200 mg oral Q6H PRN HYDROmorphone (DILAUDID) tablet 2-4 mg oral Q4H PRN lisinopriL (PRINIVIL) tablet 20 mg oral DAILY melatonin tablet 3 mg oral QHS metoprolol (LOPRESSOR) tablet 25 mg oral BID Multivitamins with minerals + ferrous gluconate (CENTRUM) oral solution 15 mL feeding tube DAILY nicotine (NICODERM CQ) 7 mg/24 hr patch 1 Patch transdermal Q24H nutren 1.5 liquid 240 mL per g tube TID WC pantoprazole (PROTONIX) tablet 40 mg oral DAILY papain-alpha amylase-cellulase (CLOG ZAPPER) 2-5 mL feeding tube PRN QUEtiapine (SEROQUEL) tablet 50 mg oral QHS senna (SENOKOT) tablet 1 Tab oral BID ASSESSMENT Estimated Daily Nutritional Needs: using adjusted weight of 73 kg 25-30 (using 73 kg) = 1465-7942 kcals/day 1.2 g/kg protein (using 73 kg) = 88 g protein/day 25 mL/kg fluid (using 73 kg) = 1825 mL fluid/day Patient eating poorly. Supplemental tube feedings resumed. Note weight loss since acute care admission, unclear if partially related to fluid or scale discrepancies. Would adjust tube feedings to better meet minimum calorie goal of 1800 kcals/day if patient eats poorly. Recommend decrease prosourceto avoid excessive protein load. TF and prosource outlined below will provide 1620 kcals and 98 g protein daily. Note elevated phos. Would continue to monitor. Nutrition Risk Level: High (1) MEDICAL NUTRITION THERAPY PLAN & RECOMMENDATIONS -Recommend change tube feedings to Nutren 1.5 @ 250 ml 4 times daily after meals and before bed; Hold a bolus feeding if patient eats >50 % meals; Continue to give bedtime bolus as ordered for now -Recommend decrease prosource to 30 ml 2 times daily -Include a phos level with labs next week -Diet per ANESTHESIOLOGY PHYSICIAN ASSISTANT -Weekly weight for trend -RD following plan documented in this encounter Miscellaneous Notes * Plan of Care - Isamar Scruggs RN - 03/31/2020 1257 EDT Problem: Daily Care Plan Goals Goal: Care Plan Documentation Outcome: Met This Shift Flowsheets (Taken 03/31/2020 0900) Area of Focus: Discharge Plan Goal This Shift: Patient will discharge to home Note: Nursing Discharge Note D: Patient noted with discharge orders to: home with home health. A: Prescriptions e-scripted. Reviewed discharge instructions and prescriptions with Patient and Family Belongings collected and sent home with patient. Report called to [facility] at [facility] [place] R: Patient and Family verbalized understanding of discharge instructions and denied further questions. ISAMAR SCRUGGS RN 03/31/2020 12:56 * Patient Care Conference - Jaden Rutherford MD - 03/31/2020 0956 EDT Inpatient Acute Rehabilitation Unit - Interdisciplinary Team Conference Note Ynes White 50 y.o. female Team Conference Date/Time: 03/31/2020 @1205 Admit Date/Time: 03/02/2020 13:13 Primary Rehab diagnosis: BI Non-Traumatic Comorbid Conditions: Patient Active Problem List Diagnosis ??? Back [...] hemorrhage (HCC-CMS) ??? Primary hypercoagulable state (HCC-CMS) Progress towards goals: Nursing: Nursing care plan goals completed - discharge planned for today OT: Discharge planned for today - refer to discharge summary PT: Discharge planned for today - refer to discharge summary ANESTHESIOLOGY PHYSICIAN ASSISTANT: Discharge planned for today - refer to discharge summary Medical Complications: None identified at this time Level of Risk & Environmental Privilege: B Pre-Hospital Living Setting and Support System:?Lives in [place], [place] with significant other in one level apartment, no stairs to enter; 24-hour supervision,?Boyfriend lives with her but works during day, siblings can provide daytime coverage if needed.?? Barriers to Discharge:?Impaired mobility s/p L ICH - pt has??decreased participation in life roles, and activity limitations with??physical assist required for functional transfers and ambulation,inability to cover household distances ambulating at this time,??and inability??to complete stairs at this time.??Functional deficits with self-care and mobility??with??impaired reactive and anticipatory postural control, BLE weakness, poor activity tolerance, pain in head and LLE, fatigue and decreased arousal.? Efforts to Remove Barriers:??Patient is tolerating Acute IP Rehab Program intensity well and makingsignificant functional progress.??Full rehab program to increase the patient's level of independence with self-care and functional mobility to decrease the amount of assistance and/or supervision needed at discharge. Additional Team Conference Discussion:?? Anticipated Actual Discharge Disposition: Discharge Location: Home Caregiver at Discharge: Spouse/significant other/domestic partner Supervision/Assistance at Discharge: 24 hour supervision Revised Expected Discharge Date: 03/31/20 Follow-Up Services: Home health with Nursing, OT, PT, ANESTHESIOLOGY PHYSICIAN ASSISTANT, home health aid and social work Anticipated Home Care Needs: Anticoagulation: lovenox Reassessment of goals or treatment program: Goals completed Assessment of need for Acute Rehabilitation level of care: Ready for discharge Additional interdisciplinary team information: Patient/Caregiver Communication: Patient/family are aware of discharge plan and estimated length ofstay Full name and professional designation of each interdisciplinary steam presser physically in attendance for this team conference. Rehabilitation Physician: Jaden Rutherford MD I lead this weekly interdisciplinary team meeting and was responsible for making the final decisions regarding the patient???s treatment in the IRF. I concur with all decisions made by the interdisciplinary team. Repairer Recreational Vehicle: Elda Peacock RN Case Manager: Isamar Downs RN Nurse: Isamar Recinos RN OT: Lula Hester OT PT: Aida Goodman DPT, CLT ANESTHESIOLOGY PHYSICIAN ASSISTANT: Jana Loya M.S., CCC-ANESTHESIOLOGY PHYSICIAN ASSISTANT Many members of the team attended this Team Conference via Skype in an effort to facilitate social distancing as we are currently in a National State of Emergency over the coronavirus pandemic. * Plan of Care - Blake Foster RN - 03/31/2020 0314 EDT Problem: Daily Care Plan Goals Goal: Care Plan Documentation Outcome: Met This Shift Flowsheets (Taken 03/31/2020 0307) Area of Focus: Safety Goal This Shift: Pt will remain safe and free of falls/injury Note: Data: Pt A&Ox3. Expressive aphasia. Pt c/o 7/10 L sided headache. Requested and received PRN Tylenol with positive effect. Action: Hourly checks for safety. Maintain bone flap precautions. Helmet on when oob. Assess for pain or discomfort. Available for needs. Call light within reach. Bed in lowest position. Response: Pt ambulated to bathroom with rolling walker. Pt remains safe on the unit. Will continue to monitor. * Plan of Care - Blanca Llamas RN - 03/30/2020 2147 EDT Problem: Daily Care Plan Goals Goal: Care Plan Documentation Outcome: Met This Shift Flowsheets (Taken 03/30/2020 1600) Area of Focus: Safety Goal This Shift: use call miranda and wait Note: Pt has used call miranda and waited for nursing, to make trip to BR. Helmet was on and RW in front as she waited. Into BR for void, returned steady and wll balanced.. Cued to stand to sink and brush teeth, followed cue also to wash hands and face. Caregiver Ever called, he will be in to Rehab tomorrow at 0830 to learn and give lovenox, learn medsand have other education before discharge. * Plan of Care - Preethi Blank RN - 03/30/2020 1226 EDT Problem: Daily Care Plan Goals Goal: Care Plan Documentation Outcome: Met This Shift Flowsheets (Taken 03/30/2020 0900) Goal This Shift: prepare for d/c tomorrow Data: Pt scheduled to d/c home to [place] tomorrow. Pt's S.O. will practice Lovenox injection with ptin morning. Action: Reviewed d/c protocol with pt. [facility] and spoke to Page in intake. Provided pt with Tylenol for 8/10 headache pain. Maintained BA and TABS alarms. Response: Pt ringing appropriately for distant S trial. No safety issues noted. Pt ready for d/c tomorrow. PREETHI BLANK RN 03/30/2020 12:27 Problem: Safety: Goal: Will remain free from falls Outcome: Met This Shift Problem: Safety: Goal: Ability to remain free from injury will improve Outcome: Met This Shift * Plan of Care - Bel Interiano RN - 03/30/2020 0326 EDT Data: Pt is s/p TBI and requires adequate rest for healing. Action: Comfortable environment, hourly rounds, timely pain assessments/interventions. Response: Pt has been observed to be resting comfortably throughout most of the shift. No c/o pain,but pt stated feeling restless in the early AM and requested prn tylenol. Used call light appropriately. Will continue to monitor. BEL INTERIANO RN 03/30/2020 3:26 * Plan of Care - Blanca Llamas RN - 03/29/2020 2223 EDT Problem: Daily Care Plan Goals Goal: Care Plan Documentation Outcome: Met This Shift Flowsheets (Taken 03/29/2020 1600) Area of Focus: Safety Goal This Shift: safe with DS Note: Pt with trial of distant (S). Used call miranda at 1900 to use BR. Safely into BR. Did not use call miranda to exit BR, nurse was at door way to evaluate. Pt successfully out of BR, helmet on, RW, back to EOB. Pt demonstrated safety with distant (S), remembered helmet and RW. Reported void and stool * Plan of Care - Cami Womack RN - 03/29/2020 0852 EDT Problem: Daily Care Plan Goals Goal: Care Plan Documentation Outcome: Met This Shift Flowsheets (Taken 03/29/2020 0840) Area of Focus: Safety Goal This Shift: Pt will use call light and wait for staff supervision Note: D: Call light and bedside stand within reach. A: Monitored for safety; rounding hourly and attending to requests for personal care needs and change in comfort level (see flow sheet). Assisted with personal care as needed. Patient continues to require skilled Rehab nursing care. Encouraged patient to use call light if any need for assistance develop. R: Monitor for personal care needs, and any change in comfort. Establish AM routine paying attention to morning nursing/therapy schedules. Pt participated in all therapies-c/o QUINONES and medicated with good effect-only ate 50% of lunch-pt on distant supervision trial-using call light appropriately and waiting-donning helmet independently. * Plan of Care - Blanca Winchester RN - 03/28/2020 1426 EDT 03/28/20 Education - family education re: providing lovenox injection for pt Data: pt's BF was here for the AM lovenox injection, but this opportunity was missed today due to miscommunications. Action: This RN was able to provide to the BF verbal general education material re: the purpose of the medication, and the general sequence of steps for doing the injection . Also 3 signs were placedin the pt's room alerting the RN of AM on 03/31/20 not to give the AM lovenox, instead to save it forBF to administer under RN supervision. In addition, another highlighted message of similar content was documented in the pt care snapshot. Response: pt 's BF acted engaged in the verbal education provided, and he was also the one who suggested that he get the phone number of this unit and will call to remind nursing of the above arrangement. Phone number was given, and It was suggested that pt call nursing at 7am on 03/31/20 with the reminder. BLANCA WINCHESTER RN 03/28/2020 14:26 * Plan of Care - Shasha Braswell RN - 03/27/2020 2142 EDT Pt complaining of a headache, given pain meds, see MAR, to good effect. Had a good dinner. Went to bathroom x 2 this evening. D: Call light and bedside stand within reach. A: Monitored for safety as well as ability to sleep/rest; rounding hourly and attending to requestsfor personal care needs and change in comfort level (see flow sheet). R: Monitor for personal care needs, and any change in comfort. Establish and maintain patient's night time rituals to promote sleep, paying attention to morning nursing/therapy schedules. * Plan of Care - Diallo Poe RN - 03/27/2020 1726 EDT Data: Pt A+O following admission for left temporoparietal hematoma s/p decompressive craniectomy. Action: Pt reports headache throughout the day. OOB to shower, contact guard assist provided for safety. PEG continues in place. Response: Pt medicated as ordered and requested for pain. Pt tolerating meals, and reports being nervous and excited for discharge home. No unsafe behaviours noted throughout the day. Pt using call miranda appropriately. DIALLO POE RN 03/27/2020 17:26 * Plan of Care - Oliva Alvarez RN - 03/27/2020 0611 EDT Problem: Daily Care Plan Goals Goal: Care Plan Documentation 03/27/2020 0611 by Oliva Alvarez RN Outcome: Ongoing Flowsheets (Taken 03/27/2020 0000) Area of Focus: Sleep Goal This Shift: Cluster care to promote rest Note: Data: Patient admitted w/ left temporoparietal hematoma s/p decompressive craniectomy. Action: Clustered care to promote rest. Tylenol administered for c/o headache. Repositioned self inbed. Response: Patient rested comfortably throughout the night. Bed in lowest position. Call miranda withinreach. OLIVA ALVAREZ RN 03/27/2020 6:11 * Plan of Care - Shasha Braswell RN - 03/26/2020 2145 EDT Pt felt the melatonin last night worked really well and was excited to have it again tonight. Pt only requested tylenol this shift for her headaches. No unsafe behaviors. D: Call light and bedside stand within reach. A: Monitored for safety as well as ability to sleep/rest; rounding hourly and attending to requestsfor personal care needs and change in comfort level (see flow sheet). R: Monitor for personal care needs, and any change in comfort. Establish and maintain patient's night time rituals to promote sleep, paying attention to morning nursing/therapy schedules. * Plan of Care - Diallo Poe RN - 03/26/2020 1823 EDT Data: Pt A+O, Pt participating in care and therapy Pt complaining throughout the day of a headache Medicated as ordered and requested Action: Pt sitting at edge of bed for meals, using call miranda for assistance Speech improved this afternoon Response: Pt denies needs, resting quietly between therapy, call miranda within reach, bed alarm on Nounsafe behaviours noted DIALLO POE RN 03/26/2020 18:23 * Plan of Care - Desi James RN - 03/26/2020 0425 EDT Problem: Daily Care Plan Goals Goal: Care Plan Documentation Flowsheets (Taken 03/26/2020 0137) Area of Focus: Sleep Goal This Shift: promote rest Data: Pt asleep at start of shift. Awake x1 upon assessment. Goal this shift is to promote rest. Action: Promote rest by clustering care, reducing noise and dimming lights. Response: Pt appears to be sleeping comfortably upon hourly assessments. No complaints at this time. Will continue to monitor. DESI JAMES RN 03/26/2020 4:25 * Plan of Care - Michelle Bermudez RN - 03/25/2020 2228 EDT Data: Pt here s/p CVA(see H&P). Today is day four with no bm. Action: prn colace and senna given at HS; encouraged PO fluids. Response: No bm this shift. Pt denies SOB, nausea, +bowel sounds x4 quads, passing flatus. Nursing is aware and wctm . MICHELLE BERMUDEZ RN 03/25/2020 22:28 * Plan of Care - Rhona Albarran RN - 03/25/2020 1418 EDT Problem: Daily Care Plan Goals Goal: Care Plan Documentation Outcome: Not Met This Shift Flowsheets (Taken 03/25/2020 0927) Area of Focus: GI//Elimination Goal This Shift: Pt will have a BM this shift. Last recorded BM 03/21. Pt has been taking colace, senna and miralax without results. Abd soft, nondistended with +bowel sound. Denies nausea. Appetite 50% today. 720cc fluids po and 240cc free water via peg tube. Pt has been passing flatus. Will continue to monitor. * Plan of Care - Spencer Gabriel LPN - 03/25/2020 0328 EDT Problem: Daily Care Plan Goals Goal: Care Plan Documentation Outcome: Not Met This Shift Flowsheets (Taken 03/25/2020 0004) Area of Focus: GI//Elimination Goal This Shift: Pt will have a BM this shift. Data: Pt's last BM was 03/21/20. Action: Pt given PRN colace & senna(see JAN) with evening meds. Fluids encouraged. Hourly checks done and call light with reach. Response: Pt has not yet had a BM this shift. Will cont to monitor. SPENCER GABRIEL LPN 03/25/2020 3:28 Cosigned by Anne Marie Villalobos, AZALEA at 03/25/2020 4:27 EDT * Plan of Care - Rhona Albarran RN - 03/24/2020 1456 EDT Problem: Daily Care Plan Goals Goal: Care Plan Documentation Outcome: Ongoing Flowsheets (Taken 03/24/2020 0858) Area of Focus: GI//Elimination Goal This Shift: Pt will have BM this shift. Colace, miralax and senna taken today with results pending. Pt denies nausea. Spoke with pt's friend Ever, who is available to come in on Wednesday 03/28 at 0900 for family education.Pt will be discharging home with lovenox and peg tube on 03/30. Ever is willing to learn how to administer lovenox injection and learn how to care for peg tube at home. * Patient Care Conference - Jaden Rutherford MD - 03/24/2020 0941 EDT Inpatient Acute Rehabilitation Unit - Interdisciplinary Team Conference Note Ynes White 50 y.o. female Team Conference Date/Time: 03/24/2020 @1205 Admit Date/Time: 03/02/2020 13:13 Primary Rehab diagnosis: BI Non-Traumatic Comorbid Conditions: Patient Active Problem List Diagnosis ??? Back pain ??? Chronic low back pain ??? Encounter for insertion or removal of intrauterine contraceptive device ??? Nicotine dependence, unspecified, uncomplicated ??? Perimenopausal ??? Post concussion syndrome ??? Tobacco abuse ??? Cerebral venous sinus thrombosis ??? Cerebral venous thrombosis ??? Brain herniation (HCC-CMS) ??? Cerebral edema (HCC-CMS) ??? Left-sided nontraumatic intracerebral hemorrhage (HCC-CMS) Progress towards goals: Nursing: Pain Management: Ongoing, tylenol and dilaudid effective for headache pain.,, Bowel: retention, Ongoing, pt with occasional constipation, prn bowel meds effective.,, Wound Care: Ongoing, pegtube is intact with free water flushes as ordered. Dry dressings daily..,, Medication Management: Ongoing, pt is dependent for all meds and lovenox injections.,, Nutritional deficits: Ongoing, pt hasbeen consuming approx 25-50% of meals. Pt needs small portions as she is easily overwhelmed with full portions and then declines meal. Boost and other fluids encouraged., and Safety: Ongoing, pt is on bone flap precautions and requires helmet when OOB. Pt is on remote observation although has been using call miranda appropriately and waiting for staff assist., OT: Notable gains include activity tolerance and basic ADLs. Her vision deficits continue, but pt is demonstrating compensatory strategies to improve function. symptoms continue and coincide with visual overstimulation. Dressing: completing with supervision Grooming: completed with cues to locate items on the counter. Vision: Continues with deficits that are difficult to test. Independently employing strategies withpencil paper tasks to compensate for vision deficits. Cognitive: Demonstrating fair-good problemsolving skills, self checking her work for accuracy. Memory appears intact as she is recognizing staff and communicating plans and preparation for her discharge. Demonstrating carryover of new learning. PT: Notable gains include activity tolerance and balance as evidence by ambulating longer distanceswithout an assistive device. Progress limited primarily by headache,her stomach not feeling well, and pt becoming overwhelmed when over stimulated.. See below for additional barriers Gait: The patient ambulates with supervison, cues and assistance of 1 with out a device for 600' feet on level surfaces and with minimal contact assist on uneven surfaces. Assist to don her josselin for out of bed mobility Gait deviations: occasional loss of stability requiring balance strategies, slow pace, increased bilateral external rotation, requires cuing for path finding. Stairs: Patient negotiates with supervison, cues and assistance of 1 up and down 12 stairs with 1 rail. Self-Care:Bed Mobility: Sit->supine: independently with no rails. Supine->sit: independently with no rails. Transfers: Bed < > Chair: stand-step with supervison, cues and assistance of 1 , assist for setup and to don josselin ANESTHESIOLOGY PHYSICIAN ASSISTANT: Ynes is making slow and steady gains in communication. Ynes has recently been limited bysevere headaches that appear to interfere with her ability to participate more than in previous sessions. Despite this, she demonstrates improvements in auditory comprehension at the single word level provided a fo6 choices. She also demonstrates continued steady improvements with repetition skillsat the single word level. She continues to rely on significant gestural supports and models to follow simple directions and answer yes/no questions, however this is steadily improving. Ynes is augmenting her communication with gestures, facial expressions, and intonation at this time, and this is judged to be effective ~75% of the time with a familiar communication partner. She continues to benefit from an Supported Communication for Adults with Aphasia (SCA) approach, provided gestures, drawings, and single written context words to support her auditory comprehension. Due to her high needsfor supported language, Ynes's familiar conversational partners (significant other Ever and sister Stacey Messina) would benefit from training in implementation of SCA and the plan is to attempt to arrange this via Facetime or Zoom during an upcoming speech-language pathology session. Ynes remains ryne ropriate for 30 min BID sessions for aphasia intervention based on her level of fatigue and headache pain. Ynes White currently presents with severe expressive and receptive aphasia, most consistent with Wernicke's type but with some deviation from typical Wernicke's type presentation. Patient appears to be able to follow some basic 1-step commands effectively provided context, models, slow auditory presentation of information, and tactile cues as needed. Repetition, object naming, word fluency,sentence completion, and responsive speech are all impaired. Ynes demonstrates a favorable response to use of gestures to assist with her auditory comprehension. Expressive language is characterized as fluent but mostly consists of word salad with many instances of jargon, neologisms, and paraphasias with occasional moments of intelligible discourse scattered throughout. Ynes's discourse could also be described as tangential and perseverative. She attempts to utilize gestures to augmenther expressive language, but is not always successful. She is also demonstrating breakdowns in reading comprehension at the short sentence level and significant deficits in written expression at the word level, compounded by impaired auditory comprehension preventing writing to dictation and impaired naming preventing written naming. These deficits impact the patient's ability to functionally comm unicate her wants, needs, and ideas and hold conversation. She presents with severe impairments in reading comprehension, however, she demonstrates some success with reading comprehension at the wordlevel, which appears to be a relative strength compared to her auditory comprehension. She exhibits significant breakdown in reading comprehension at the short sentence level. Ynes also demonstrates significant deficits in written expression at the single word level however this appears to be improving and her awareness of these errors appears better than her awareness of errors in verbal expression, although her awareness of errors within verbal expression is also improving steadily at the single word and short phrase level. She also demonstrates relative strength in copying words and sentences, as well as writing numbers. It has been determined that the patient demonstrates deficits that impact functioning in daily activities and hinder participation in life situations.??Patient currently requires assistance from others to communicate basic wants and needs and direct her medical care. Pt will continue to benefit from her needs being anticipated and simplified information presented to her. Information should be repeated and said in different ways, and augmented with pictures and gestures. The patient is demonstrating strengths in motivation and some intact basic expressive language skills which should be utilized during the patient's plan of care to maximize gains. Contextual factors that may impact the patient's ability to progress toward rehab goals include: severity of language impairment, need for physical assistance, tolerance level for therapy, pain, and depression/anxiety d/t to social isolation secondary to hospital's COVID19 no visitor policy. Based on patient's tolerance level, it is recommended that patient participate in 30 minute BID sessions initially and build toward 60 minute sessions as tolerated. Given patient's age, independence prior to admission, and social/occupational demands, she would benefit from intensive ANESTHESIOLOGY PHYSICIAN ASSISTANT intervention. Based on the patient's rehab potential, motivation, prior level of function, and the contextual factors, the patient's prognosis is considered good. It is anticip ated that the patient will make functional gains in expressive and receptive language skills with intensive skilled 1:1 speech language pathology services in the inpatient rehabilitation setting. It is anticipated that following her discharge from inpatient rehabilitation that Ynes will require a communication partner trained in SCA and she will require ongoing intensive skilled speech-language pathology services in her next setting. Medical Complications: Continued intermittent headache. Level of Risk & Environmental Privilege: B Pre-Hospital Living Setting and Support System:?Lives in [place], [place] with significant other in one level apartment, no stairs to enter; 24-hour supervision,?Boyfriend lives with her but works during day, siblings can provide daytime coverage if needed.?? Barriers to Discharge:?Impaired mobility s/p L ICH - pt has??decreased participation in life roles, and activity limitations with??physical assist required for functional transfers and ambulation,inability to cover household distances ambulating at this time,??and inability??to complete stairs at this time.??Functional deficits with self-care and mobility??with??impaired reactive and anticipatory postural control, BLE weakness, poor activity tolerance, pain in head and LLE, fatigue and decreased arousal.? Efforts to Remove Barriers:??Patient is tolerating Acute IP Rehab Program intensity well and makingsignificant functional progress.??Full rehab program to increase the patient's level of independence with self-care and functional mobility to decrease the amount of assistance and/or supervision needed at discharge. Additional Team Conference Discussion:??Discussion of limited goals and progress at times but progressing toward supervision. Will need family training for discharge. Discussion of trying video calls. Anticipated Actual Discharge Disposition: Discharge Location: Home Caregiver at Discharge: Spouse/significant other/domestic partner Supervision/Assistance at Discharge: 24 hour supervision Revised Expected Discharge Date: 03/30/20 Follow-Up Services: Home health with Nursing, OT, PT, ANESTHESIOLOGY PHYSICIAN ASSISTANT, home health aid and social work Anticipated Home Care Needs: Anticoagulation: lovenox Reassessment of goals or treatment program: Goals maintained Assessment of need for Acute Rehabilitation level of care: The expected course of treatment continues to require an interdisciplinary approach to maximize interventions and progress towards functional goals established. and The patient generally participates actively in therapy at expected intensity levels. We are currently under Covid-19 emergency waivers and the CMS waiver required by section 3711(a) of the CARES Act waives the intensity of therapy requirement for all IRF patients during the public health emergency. Additional interdisciplinary team information: Patient/Caregiver Communication: Patient/family are aware of discharge plan and estimated length ofstay Full name and professional designation of each interdisciplinary steam presser physically in attendance for this team conference. Rehabilitation Physician: Jaden Rutherford MD I lead this weekly interdisciplinary team meeting and was responsible for making the final decisions regarding the patient???s treatment in the IRF. I concur with all decisions made by the interdisciplinary team. Repairer Recreational Vehicle: Isamar Downs RN Nurse: Page Albarran RN OT: Eliza Douglas OTR/Pieter PT: Kassandra Richard, PT ANESTHESIOLOGY PHYSICIAN ASSISTANT: Terence Fox [facility] ANESTHESIOLOGY PHYSICIAN ASSISTANT Many members of the team attended this Team Conference via Skype in an effort to facilitate social distancing as we are currently in a National State of Emergency over the coronavirus pandemic. * Plan of Care - Blanca Llamas RN - 03/23/2020 2245 EDT Problem: Daily Care Plan Goals Goal: Care Plan Documentation Outcome: Ongoing Flowsheets Taken 03/23/2020 2240 Area of Focus: Pain/ Comfort Taken 03/23/2020 1600 Goal This Shift: relieve pain Note: Difficult to assess quality of pain at L head with the aphasia, but pt uses numbers, 6 or 7, to describe. Medicated before transfer to MRI with contrast at main campus at 1640. Returns at 2029; report shows no deleterious change. Pt mood is very happy and chatty. Picks at sandwich, takes juice and water. Aphasia more pronounced with fatigue. Allows hs lovenox, and free water to GT. Tylenol at hs,soon asleep. No severe head pain on oriana shift. * Plan of Care - Rhona Albarran RN - 03/23/2020 1535 EDT Problem: Daily Care Plan Goals Goal: Care Plan Documentation 03/23/2020 1535 by Rhona Albarran RN Outcome: Ongoing Flowsheets (Taken 03/23/2020 0900) Area of Focus: Pain/ Comfort Goal This Shift: ADequate pain control. 03/23/2020 1505 by Rhona Albarran RN Outcome: Met This Shift Flowsheets (Taken 03/23/2020 0900) Area of Focus: Pain/ Comfort Goal This Shift: ADequate pain control. Pt continues to complain of headache pain, sudden and stabbing at times. Dr. Rutherford aware with new orders received. Pt to be transferred to [facility] this afternoon for MRI. * Plan of Care - Spencer Gabriel LPN - 03/23/2020 0422 EDT Problem: Daily Care Plan Goals Goal: Care Plan Documentation 03/23/2020 0422 by Spencer Gabriel LPN Outcome: Ongoing Flowsheets (Taken 03/23/2020 0037) Area of Focus: Sleep Goal This Shift: Pt will get adequate sleep this shft. Data: Pt with head pain d/t L craniectomy done 02/16/20, bone flap precautions, expressive aphagia, contact guard 1 assist, wears helmet when OOB, and gtube. Action: Hourly checks done. Call light within reach, which Pt uses appropriately, and bed alarm on.PRN pain meds(see MAR) given. Response: Pt slept about 4 hours of shift then requested Tylenol for 8/10 head pain. About 45 min later Pt cont with c/o head pain of 6/10 and requested Dilaudid. Pt currently sleeping. Will cont to monitor. SPENCER GABRIEL LPN 03/23/2020 4:22 Cosigned by Martha Kemp RN at 03/23/2020 4:49 EDT * Plan of Care - Devorah Galloway RN - 03/22/2020 1311 EDT Problem: Daily Care Plan Goals Goal: Care Plan Documentation Outcome: Met This Shift Flowsheets (Taken 03/22/2020 0810) Area of Focus: Pain/ Comfort Goal This Shift: Patient will have decreased pain with interventions. Note: D: Patient has intermittent QUINONES. A: Pain assessed frequently. Patient offered Tylenol as ordered. Patient working on relaxing through breathing. R: Patient stated that her QUINONES was on/off this shift. Patient stated that it was tolerable and she was able to participate in therapies. Problem: Pain: Goal: Pain level will decrease Outcome: Met This Shift Problem: High Fall Risk: Goal: Patient Will Remain Free from Fall-Related Injury Outcome: Met This Shift Problem: High Fall Risk: Goal: Patient will Remain Free of Falls due to Altered Mobility Outcome: Met This Shift * Plan of Care - Gema Carr RN - 03/22/2020 0059 EDT Problem: Daily Care Plan Goals Goal: Care Plan Documentation Outcome: Met This Shift Problem: Safety: Goal: Will remain free from falls Outcome: Met This Shift Problem: Pain: Goal: Pain level will decrease Outcome: Met This Shift Data: Continue hourly observations. Action: Monitor for safety, pain, sleep. Response: Appeared to sleep comfortably until 0320 when she complained of a left side headache #7; she did deep breathing and sitting up in bed with some positive effect. She received tylenol 650 mg po at this time. Returned to sleep. GEMA CARR RN 03/22/2020 0:59 * Plan of Care - Jag Wilcox RN - 03/21/2020 2107 EDT 03/21/20 1600 Care Plan Focus Goal This Shift will review headache management modalities (goal met) Pt is A and seemingly O x 3, Difficult to assess 2nd to expressive aphasia that persists. Still pt is able to make her needs known and gets her point across well with combination of intonation, gestures and ~ 50% appropriate words. Pt is aware that many of her words are garbled and nonsensical. Shegets frustrated with herself at times. Encouragement provided. Pt c/o severe headache at beginning of shift. Tylenol was ineffective initially and dilaudid was not due for another hour. Call placed to Dr Rutherford who was made aware. Pt's VSS, PERRL noted. All neuro checks wnl. Pt was feeling much better per her reports with in one hours time. And headache was more tolerable and manageable duration of shift. (see MAR). Pt using call lite consistently. Bed tabs alarm used and helmet on OOB. Ambulating CG to/fro bathroom. Continent void. Did not eat main entree provided at dinner. Ate all the sides and dessert. Drinking qs. 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 BP 112/72 (BP Cuff Location: Right arm, BP Patient Position: Sitting) Pulse 86 Temp 36 ??C (96.8 ??F) (Tympanic) Resp 14 Ht 170.2 cm (67) Wt 83.5 kg (184 lb) SpO2 97% BMI 28.82 kg/m?? . Uses inappropriate words but less so than yesterday. Helmet OOB Action: Bed alarm zone 2. Hourly roundings. Response: Patient remains safe throughout shift. Will continue to monitor. MAYRA CARDENAS RN 03/21/2020 13:45 * Plan of Care - Gema Carr RN - 03/21/2020 0132 EDT Problem: Daily Care Plan Goals Goal: Care Plan Documentation Outcome: Met This Shift Problem: Pain: Goal: Pain level will decrease Outcome: Met This Shift Problem: Safety: Goal: Will remain free from falls Outcome: Ongoing Data: Continue hourly observations. Action: Monitor for safety, pain, sleep. Response: Appeared to sleep comfortably. GEMA CARR RN 03/21/2020 1:32 * Plan of Care - Mayra Cardenas RN - 03/20/2020 1332 EDT Problem: Daily Care Plan Goals Goal: Care Plan Documentation Flowsheets (Taken 03/20/2020 0342) Area of Focus: Neuro Status Goal This Shift: stable neuro status Data: Patient is here s/p central venous thrombosis and left temporoparietal hemorrhage. BP 112/78 (BP Cuff Location: Right arm, BP Patient Position: Semi fowlers) Pulse 96 Temp 36 ??C (96.8 ??F)(Tympanic) Resp 16 Ht 170.2 cm (67) Wt 83.4 kg (183 lb 12.8 oz) SpO2 97% BMI 28.79 kg/m?? She is one assist with a front wheeled walker - impulsive. She is aphasic with inappropriate words. Action: Hourly rounds. Bed alarm - zone 2. Response: Patient remains safe, but sets bed alarm off. Patient's neuro status remains unchanged since this am after ED incident. Will continue to monitor. MAYRA CARDENAS RN 03/20/2020 13:32 * Plan of Care - Kaci Love RN - 03/20/2020 0608 EDT Problem: Daily Care Plan Goals Goal: Care Plan Documentation Outcome: Met This Shift Flowsheets (Taken 03/20/2020 4400) Area of Focus: Sleep Goal This Shift: Adeequate sleep this shift * Plan of Care - Michelle Bermudez RN - 03/19/20202122 EDT Data: Pt here s/p CVA(see H&P). Pt is AAOx3 but aphasic. Pt was sent to ED for evaluation yesterday r/t QUINONES and abd pain. Action: Pt given prn analgesic per request/emar. Response: Pt verbalized anxiety about overnight pain; plan discussed to medicate prior to lieutenant shift supervisor and overnight. Pt verbalized good management throughout evening shift. Pt had two bowel movementson oriana. Adamantly refused all care for PEG tube; unable to flush; pt reported intense anxiety over pain r/t PEG. Resting on hourly rounds, RR WNL. MICHELLE BERMUDEZ RN 03/19/2020 21:23 * Plan of Care - Rhona Albarran RN - 03/19/2020 1429 EDT Problem: Daily Care Plan Goals Goal: Care Plan Documentation Outcome: Met This Shift Flowsheets (Taken 03/19/2020 0925) Area of Focus: Pain/ Comfort Goal This Shift: Adequate pain control. Pt continues to c/o frontal headache pain 6-8/10 today. Tylenol 650 mg with dilaudid 2mg every fourhours moderately effective for pain control . 50% meals taken. Fluids encouraged. Pt likes chocolate boost. 240 cc free water tolerated via peg tube this afternoon. Colace and miralax taken this morning. Last BM 03/18. * Plan of Care - Justin Meeks RN - 03/19/2020 5004 EDT Problem: Daily Care Plan Goals Goal: Care Plan Documentation 03/19/2020414 by Justin Meeks RN Outcome: Met This Shift Flowsheets (Taken 03/19/2020414) Area of Focus: Safety 03/19/2020 0414 by Justin Meeks RN Outcome: Met This Shift Flowsheets (Taken 03/19/2020 0414) Area of Focus: Pain/ Comfort 03/19/2020 0414 by Justin Meeks RN Outcome: Met This Shift Flowsheets (Taken 03/19/2020 041) Area of Focus: Sleep Bed alarm on #2 for safety. Call miranda and bedside table within reach. G tube is flushed, given freewater, and dressing is CDI. Meds given per orders. Pt ringed appropriately. PRN Dilaudid and Tylenol given for pain rating 7/10. Internal Communications Writer didn't noticed unsafe issues. Pt was toileted x1. Nursing will continue to monitor. * Plan of Care - Justin Meeks RN - 03/18/2020 3306 EDT Pt come back from CT scan. Assume time 2100. Was very tared and wanted to go to sleep. Family is notified about the return. Bed alarm on #2 for safety. Call miranda and bedside table within reach. G tube is flushed, given free water, and dressing is CDI. Meds given per orders. Pt ringed appropriately.PRN Dilaudid and Tylenol given for pain rating 7/10. Internal Communications Writer didn't noticed unsafe issues. Nursing will continue to monitor. Scan info, head WNL and was found thickening on the L rectus muscle. For more info please see Notes. * Plan of Care - Rhona Albarran, AZALEA - 03/18/2020 1432 EDT Problem: Daily Care Plan Goals Goal: Care Plan Documentation Outcome: Not Met This Shift Flowsheets (Taken 03/18/2020 1049) Area of Focus: GI//Elimination Goal This Shift: Pt will have BM this shift. Last documented BM 03/14. Colace and senna this am with results pending. Pt declined dulcolax suppository. * Plan of Care - Anne Marie Villalobos RN - 03/18/2020 0625 EDT Problem: Daily Care Plan Goals Goal: Care Plan Documentation Flowsheets (Taken 03/18/2020 0618) Area of Focus: Sleep Note: Pt is alert and oriented to person and rang call miranda appropriately tonight. Bed alarm in place as a precaution. Pt declined offer of toileting when seen awake thus far. Pt reported 10-12/10 pain tonight and requested and received tylenol and dilaudid per request. Awaiting results of intervention. Continue to monitor pt for pain control and offer toileting when seen awake. * Plan of Care - Rhona Albarran RN - 03/17/2020 1352 EDT Problem: Daily Care Plan Goals Goal: Care Plan Documentation Outcome: Met This Shift Flowsheets (Taken 03/17/2020 0905) Area of Focus: Pain/ Comfort Goal This Shift: Adequate pain control. Pt rating frontal headache pain 4-8/10 using auguste salomon scale. Tylenol together with dilaudid is only moderately effective for pain control. Participating with therapies. Pt informed of tentative discharge date of 03/30/20. Pt did not want me to call significant other with discharge date. * Patient Care Conference - Martha Esparza MD - 03/17/2020 1143 EDT Inpatient Acute Rehabilitation Unit - Interdisciplinary Team Conference Note Ynes White 50 y.o. female Team Conference Date/Time: 03/17/2020 @1205 Admit Date/Time: 03/02/2020 13:13 Primary Rehab diagnosis: BI Non-Traumatic Comorbid Conditions: Patient Active Problem List Diagnosis ??? Back pain ??? Chronic low back pain ??? Encounter for insertion or removal of intrauterine contraceptive device ??? Nicotine dependence, unspecified, uncomplicated ??? Perimenopausal ??? Post concussion syndrome ??? Tobacco abuse ??? Cerebral venous sinus thrombosis ??? Cerebral venous thrombosis ??? Brain herniation (HCC-CMS) ??? Cerebral edema (HCC-CMS) ??? Left-sided nontraumatic intracerebral hemorrhage (HCC-CMS) Progress towards goals: Nursing: Pain Management: Ongoing, pt continues to c/o right frontal headache pain requiring tylenol and dilaudid with moderate effect.,, Medication Management: Ongoing, dependent for all meds and lovenox injections.,, Nutritional deficits: Ongoing, pt consuming approx. 25-50% meals. Fluids taken well. Pt c/o abd pain when free water is instilled via Peg tube and pt will frequently decline. , andSafety: Ongoing, helmet worn when pt os OOB. Bed alarm is used although pt hes been using call bellappropriately and waiting for staff assist., OT: Progress limited primarily by fatigue, pain and aphasia. See below for additional barriers Pt is demonstrating slow gains in OT. Her participation is good with intermittent breaks for head pain and nausea. This may likely be related to her visual deficits. Testing has been challenging due to aphasia, but it appears pt with deficits of visual field, eye teaming and vergence. Tasks of visual demand increasing her symptoms. ADL completed with cues, min contact assist and intermittent breaks from an ambulatory level. PT: Progress limited primarily bylability, fair tolerance to activity, pain/nausea?. See below for additional barriers Gait: The patient ambulates with supervison, cues and assistance of 1 with rolling walker for 200+ feet. Gait deviations: slow pace, forward flexed, requires cuing for scanning to the right/to avoid running into things. Stairs: Patient negotiates with min contact assist of 1 up and down 12 stairs with 1rail. Self-Care:Bed Mobility: Sit->supine: independently with no rails. Supine->sit: independently with no rails. Transfers: Bed < > Chair: stand-step with supervison, cues and assistance of 1 for setup ANESTHESIOLOGY PHYSICIAN ASSISTANT: Ynes currently presents with severe expressive and receptive aphasia, most consistent with Wernicke's type but with some deviation from typical Wernicke's type presentation. Patient appears to be able to follow some basic 1- step commands effectively provided context, models, slow auditory presentation of information, and tactile cues as needed. Repetition, object naming, word fluency, sentence completion, and responsive speech are all impaired. Ynes demonstrates a favorable response to use of gestures to assist with her auditory comprehension. Expressive language is characterized as fluent but mostly consists of word salad with many instances of jargon, neologisms, and paraphasias with occasional moments of intelligible discourse scattered throughout, although this is improving. Ynes's discourse could also be described as tangential and perseverative. She attempts to utilize gestures to augment her expressive language, but is not always successful. She is also demonstrating breakdowns in reading comprehension at the short sentence level and significant deficits in written expression at the word level, compounded by impaired auditory comprehension preventing writingto dictation and impaired naming preventing written naming. These deficits impact the patient's ability to functionally communicate her wants, needs, and ideas and hold conversation. She presents with severe impairments in reading comprehension, however, she demonstrates some success with reading comprehension at the word level, which appears to be a relative strength compared to her auditory comprehension. Reading at the contextual single word level continues to be a strength which should be utilized to maximize her gains across all therapies. She exhibits significant breakdown in reading comprehension at the short sentence level. Ynes also demonstrates significant deficits in written expression at the single word level however this appears to be improving and her awareness of these errors appears better than her awareness of errors in verbal expression. She also demonstrates relative strength in copying words and sentences, as well as writing numbers. Ynes is demonstrating slow but steady improvements in auditory comprehension of yes/no questionsand repetition of 1-2 syllable words. She continues to benefit from a Supported Conversation for Adults with Aphasia (SCA) approach. Written iInformation regarding SCA has been posted in Ynes's room for her staff members to review and a copy has been left her in room to provide to her family members. Ynes continues to demonstrate better gains during her earlier sessions and decreased accuracy and gains during her later sessions in the day. She also performs better when she has breaks built into her rehab schedule throughout the day. Ynes remains appropriate for 30 min BID sessions for aphasia intervention based on her level of fatigue and headache pain. It has been determined that the patient demonstrates deficits that impact functioning in daily activities and hinder participation in life situations.??Patient currently requires assistance from others to communicate basic wants and needs and direct her medical care. Pt will continue to benefit from her needs being anticipated and simplified information presented to her. Information should be repeated and said in different ways, and augmented with pictures and gestures. The patient is demonstrating strengths in motivation and some intact basic expressive language skills which should be utilized during the patient's plan of care to maximize gains. Contextual factors that may impact the patient's ability to progress toward rehab goals include: severity of language impairment, need for physical assistance, tolerance level for therapy, and pain. Given patient's age, independence prior to admission, and social/occupational demands, she would continue to benefit from intensive ANESTHESIOLOGY PHYSICIAN ASSISTANT intervention at least 5x/week at 30 min BID. Based on the patient's rehab potential, motivation, prior level of function, and the contextual factors, the patient's prognosis is considered good. It is anticipated that the patient will continue to make functional gains in expressive and receptive language skills with intensive skilled 1:1 speech language pathology services in the inpatient rehabilitation setting. It is also anticipated that upon discharge, patient will require continued intensive ANESTHESIOLOGY PHYSICIAN ASSISTANT services based on level of deficit, neuroplasticity principles, and [id number]. Medical Complications: DVT, PE, hypercoagulable state, acute kidney injury Level of Risk & Environmental Privilege: B Pre-Hospital Living Setting and Support System:?Lives in [place], [place] with significant other in one level apartment, no stairs to enter; 24-hour supervision, ??Boyfriend lives with her but works during day, siblings can provide daytime coverage if needed. Barriers to Discharge:?? Impaired mobility s/p L ICH - pt has decreased participation in life roles, and activity limitations with??physical assist required for functional transfers and ambulation, inability to cover household distances ambulating at this time,??and inability??to complete stairs atthis time. Functional deficits with self-care and mobility with impaired reactive and anticipatory postural control, BLE weakness, poor activity tolerance, pain in head and LLE, fatigue and decreasedarousal.? Efforts to Remove Barriers:??Patient is tolerating Acute IP Rehab Program intensity well and makingsignificant functional progress. Full rehab program to increase the patient's level of independencewith self-care and functional mobility to decrease the amount of assistance and/or supervision needed at discharge. Additional Team Conference Discussion: Patient is making progress towards established Acute IP Rehab goals as anticipated. Limited by nausea, dizziness and pain. Discussion of assessment of field cutand other visual issues. Team discussion of goals and needs with recommendation for longer length of stay for safe, successful discharge. Equipment needs are being address and are anticipated to be met by discharge. Patient/family education is in process and team feels patient/family will be ready for discharge as scheduled. Anticipated Actual Discharge Disposition: Discharge Location: Home Caregiver at Discharge: Spouse/significant other/domestic partner Supervision/Assistance at Discharge: 24 hour supervision Revised Expected Discharge Date: 03/30/20 Follow-Up Services: Home health with Nursing, OT, PT, ANESTHESIOLOGY PHYSICIAN ASSISTANT and home health aid; SW Anticipated Home Care Needs: Anticoagulation: lovenox? Reassessment of goals or treatment program: Goals adjusted based on progress and barriers Assessment of need for Acute Rehabilitation level of care: The expected course of treatment continues to require an interdisciplinary approach to maximize interventions and progress towards functional goals established., The patient generally participates actively in therapy at expected intensity levels., Continue therapies by OT, PT and ANESTHESIOLOGY PHYSICIAN ASSISTANT and For a total of 3 hours per day, 5 days per week Additional interdisciplinary team information: Patient/Caregiver Communication: Nurse will inform patient/family of discharge plan and estimated length of stay Full name and professional designation of each interdisciplinary steam presser physically in attendance for this team conference. Rehabilitation Physician: Martha Esparza MD I lead this weekly interdisciplinary team meeting and was responsible for making the final decisions regarding the patient???s treatment in the IRF. I concur with all decisions made by the interdisciplinary team. Repairer Recreational Vehicle: Elda Peacock RN Case Manager: Isamar Downs RN Nurse: Page Albarran RN OT: Eliza Douglas OTR/Pieter PT: Aida Goodman DPT, CLT ANESTHESIOLOGY PHYSICIAN ASSISTANT: Silva Calderón MS [facility]-ANESTHESIOLOGY PHYSICIAN ASSISTANT Many members of the team attended this Team Conference via Skype in an effort to facilitate social distancing as we are currently in a National State of Emergency over the coronavirus pandemic. * Plan of Care - Blake Foster RN - 03/17/2020 0426 EDT Problem: Daily Care Plan Goals Goal: Care Plan Documentation Outcome: Met This Shift Flowsheets (Taken 03/17/2020 0153) Area of Focus: Safety Goal This Shift: Pt will remain safe Note: Data: S/P Left temporoparietal hemorrhage. Pt c/o 4/10 L side headache. PRN dialudid administered. Upon reassessment at 0515 Pt c/o 8/10 L side head and stomach pain. Tylenol administered with positive effect. Action: Hourly checks for safety. Bed alarm on #2. Assess for pain or discomfort. Administered PRN Dilaudid 2mg for pain as ordered. Available for needs. Call light within reach. Bed in lowest position. Maintain bone flap precautions. Response: Appeared to sleep comfortably during hourly checks. Made use of call light to make needs known. Patient remains safe on the unit. Will continue to monitor. * Plan of Care - Sridevi Romano RN - 03/16/2020 2301 EDT Problem: Daily Care Plan Goals Goal: Care Plan Documentation Outcome: Ongoing Note: Data: Pt has BID metoprolol with order parameters to hold for systolic <100 or HR <60. Per nursing report, Pt had a BP of 87/57 this morning and a HR of 84, therefore did not receive morning dose of metoprolol. Action: Reviewed Pt orders and vital trends. Obtained Pt's BP and HR prior to evening metoprolol dose. Response: Pt's BP at 2100 was 91/54, HR 84. Did not administer metoprolol. Sticky note written to MD expressing that Pt did not receive BID metoprolol. SRIDEVI ROMANO RN 03/16/2020 22:54 * Plan of Care - Preethi Blank RN - 03/16/2020 1318 EDT Problem: Daily Care Plan Goals Goal: Care Plan Documentation Outcome: Met This Shift Flowsheets (Taken 03/16/2020 0917) Goal This Shift: pt will remain safe this shift Data: Pt is s/p L-ICH with bone flap following craniectomy. Action: Maintained BA on setting #2; ensured pt wore helmet OOB; kept HOB>30 degrees; provided 1A CG with RW; assisted pt with dressing; used calm, short sentences to help calm pt's frustration with her communication struggles; provided 2 mg Dilaudid and Tylenol to treat head pain (see MAR). Response: Pt participated in therapies, rang appropriately, and remained safe this shift. PREETHI BLANK RN 03/16/2020 13:18 Problem: Pain: Goal: Pain level will decrease Outcome: Met This Shift Problem: Coping: Goal: Level of anxiety will decrease Outcome: Met This Shift * Plan of Care - Shasha Braswell RN - 03/16/2020 0317 EDT Pt with very quiet night. Barely woke up when doing her free water. Seems to be doing well with thesitter and the RO gone. D: Call light and bedside stand within reach. A: Monitored for safety as well as ability to sleep/rest; rounding hourly and attending to requestsfor personal care needs and change in comfort level (see flow sheet). Assisted with personal care as needed. R: Monitor for personal care needs, and any change in comfort. Establish and maintain patient's night time rituals to promote sleep, paying attention to morning nursing/therapy schedules. * Plan of Care - Justin Meeks RN - 03/15/20202120 EDT Problem: Daily Care Plan Goals Goal: Care Plan Documentation Outcome: Ongoing Flowsheets (Taken 03/15/20202117) Area of Focus: Pain/ Comfort Note: Bed alarm on #2 for safety. Call miranda and bedside table within reach. G tube is flushed, given freewater, and dressing is CDI. Meds given per orders. Pt ringed appropriately. PRN Dilaudid and Tylenol given for pain rating 7/10. Internal Communications Writer didn't noticed unsafe issues. Nursing will continue to monitor. * Plan of Care - Charity Osman RN - 03/15/2020 1318 EDT Data: pt continues to c/o headache pain, rates pain 5/10, appears uncomfortable, squinting her eyesand grimacing Action: pain assessments, medicated with tylenol and dilaudid as documented Response: pain fairly well controlled with above medications, to early at this time to reassess, has been able to participate in therapies CHARITY OSMAN RN 03/15/2020 13:18 * Plan of Care - Blake Foster RN - 03/15/2020 0552 EDT Problem: Daily Care Plan Goals Goal: Care Plan Documentation Outcome: Met This Shift Flowsheets (Taken 03/15/2020 0140) Area of Focus: Sleep Goal This Shift: Adequate sleep this shift Note: Data: S/P Left temporoparietal hemorrhage. Helmet on when OOB. Pt refused free water stating no itwill get done during the daytime. Dressing CDI. At 0300 Pt c/o inability to go back to sleep and 5/10 L side headache. PRN med administered with positive effect. Action: Hourly checks for safety. Bed alarm on #2. Reposition PRN. Assess for pain or discomfort. Administered PRN Dilaudid 2mg for pain as ordered. Available for needs. Call light within reach. Bed in lowest position. Bone flap precautions. Response: Appeared to sleep comfortably during hourly checks. Made use of call light to make needs known. Patient remains safe on the unit. Will continue to monitor. * Plan of Care - Adali Hurtado RN - 03/14/2020 0392 EDT Problem: Daily Care Plan Goals Goal: Care Plan Documentation Flowsheets (Taken 03/14/2020 1800) Area of Focus: Pain/ Comfort Goal This Shift: pts pain will be well managed this shift Data: Pt A&Ox3, s/p left-sided nontraumatic intracerebral hemorrhage; aphasia. Bone flap precautions; helmet when OOB. Action: Pt had difficult time giving a number for pain scale, auguste salomon pain scale used, PRNs given see MAR. PEG tube flushed, aspirated - dressing c/d/I, pt denies pain when flushed. Response: Pt appears to be resting comfortably. Will continue to monitor and assess this shift. ADALI HURTADO RN 03/14/2020 21:49 * Plan of Care - Blanca Winchester RN - 03/14/2020 1408 EDT 03/14/20 pain Data: at start of shift, pt reported QUINONES and abd pain - as best as pt could articulate, it seemed aniket a LARGE pain. pt was also quite verbally agitated about her belly pain. Documents show no BM SINCE 03/11. During AM free H20 administration, pt c/o that it hurt, and it was noted that the drain sponge drsgbecame mod wet w/clear fluid, when it had not been prior to the instillation. Action: administered tylenol, dilaudid 2mg, and offered pt a suppository; reported the Abd pain andleakage onto drain sponges during free water instillation and larger amounts of clear sl yellow tinted fluid draining in small but steady stream from the g tube site down pts abdomen while pt was pass ing BM on toilet to MD; Response: pt agreed to a suppository at 1000, and at 1145 passed a large BM which pt complained wasvery painful to pass. After the AM dose of tylenol and dilaudid, pt seemed to be more comfortable but was not able to articulate what her pain level was at that time except Small MD discovered a crack in the Gtube near entry/exit site - which was taped, and per neuro md, it is too soon for the Gtube to be pulled. Continue to monitor.. BLANCA WINCHESTER RN 03/14/2020 14:08 * Plan of Care - Justin Meeks RN - 03/14/20209 EDT Problem: Daily Care Plan Goals Goal: Care Plan Documentation 03/14/2020458 by Justin Meeks RN Outcome: Met This Shift Flowsheets (Taken 03/14/2020458) Area of Focus: Pain/ Comfort Problem: Daily Care Plan Goals Goal: Care Plan Documentation 03/14/20208 by Justin Meeks RN Outcome: Met This Shift Flowsheets (Taken 03/14/2020457) Area of Focus: Sleep Data: Pt here s/p L temporal hemmorhage with missing bone flap. Action: Helmet when oob, bed alarm on #2, bed is locked and in the lowest position. Call miranda and bed side table within reach. PRN meds given for pain rating 8/10 around 2347 see MAR. G tube is patent and dressing is CDI. No unsafe issue noted. Response: Pt slept well, pain was under control. Goal met this shift and nursing will continue to monitor. JUSTIN MEEKS RN 03/14/2020 5:01 * Plan of Care - Justin Meeks RN - 03/13/20201 EDT Problem: Daily Care Plan Goals Goal: Care Plan Documentation 03/13/20202210 by Justin Meeks RN Outcome: Met This Shift Flowsheets (Taken 03/13/20202210) Area of Focus: Safety 03/13/20202209 by Justin Meeks RN Outcome: Ongoing Flowsheets (Taken 03/13/20202209) Area of Focus: Pain/ Comfort Bed alarm on #2 for safety. Call miranda and bedside table within reach. G tube is flushed, given freewater, and dressing is CDI. Meds given per orders. Pt ringed appropriately. Internal Communications Writer didn't noticed unsafe issues. * Plan of Care - Emily Weaver RN - 03/13/2020 1327 EDT Patient has fair appetite, taking fluids well. Ambulates with walker-contact guard. Medicated for head pain as per GINO with good effect-she is able to rest and sleep. She saw family through the dining room door and spoke with them by phone-she is very happy abut that. * Plan of Care - Sera Martinez - 03/13/2020 0550 EDT Problem: Daily Care Plan Goals Goal: Care Plan Documentation Outcome: Met This Shift Flowsheets (Taken 03/12/20202002) Area of Focus: Pain/ Comfort Goal This Shift: pt will maintain adequate pain control through shift Note: D: Patient has been found sleeping at hourly rounds x 8. Call light and bedside stand within reach.Pt received sedating med at and is currently breathing w/o difficulty. A: Monitored for safety as well as ability to sleep/rest; rounding hourly and attending to requestsfor personal care needs and change in comfort level (see flow sheet). Assisted with personal care as needed. Patient continues to require skilled Rehab nursing care. Encouraged patient to use call light if any need for assistance develop. Nightlight is in use. R: Monitor for adequate sleep patterns, personal care needs, and any change in comfort. Establish and maintain patient's night time rituals to promote sleep, paying attention to morning nursing/therapy schedules. Patient's sleep is adequate. Note: Pt slept very well throughout shift, no c/o nausea, c/o head pain x 1 and medicated for pain, otherwise pt slept well. Pt excited to see sister/family today and her sister called to check on her during evening shift as well * Plan of Care - Emily Weaver RN - 03/12/2020 1312 EDT Patient in good spirits-good appetite. Still aphasic-and getting frustrated with being unable to get thoughts across to staff. Medicated for headache as per MAR with good effect. Reminded all shift to call nursing and wait-able to do this 75%of the time-otherwise bed alarm is going off. Ambulates very steady with walker-one assist-contact guard. Patient refused any peg care or water administration this shift. * Plan of Care - Anne Marie Villalobos RN - 03/12/2020 0755 EDT Problem: Daily Care Plan Goals Goal: Care Plan Documentation Flowsheets Taken 03/12/2020 0753 Area of Focus: Sleep Taken 03/12/2020 0600 Goal This Shift: Pt will get adequate sleep tonight Note: Pt is alert and oriented to person and no unsafe behavior noted. Bed alarm on #2 as a precaution. Pt rang appropriately for assistance to bathroom. Pt not left alone in bathroom. Pt is a 1 assist with CG and RW and Helmet when OOB. Pt c/o headache tonight, given dilaudid and tylenol. Pt also c/o nausea and zofran was given. Pt noted to be asleep within the hour after intervention. Continue to monitor pt for pain control and safety. * Plan of Care - Michelle Bermudez RN - 03/11/2020 3615 EDT Data: Pt here s/p L temporal hemmorhage with missing bone flap. Pt is AAOx3 with expressive aphasia. Pt has been impulsive in the past and was recently taken off of remote monitor. Action: bed alarm on second setting; frequent checks; reminded to use call miranda. Fall precautions followed. Response: Pt did not ring I don't remember how to call so I just wait but did wait for staff assistance. Did not ring while in bathroom(helmet when oob; don't leave while in BR). Pt did begin ambulating in BR without staff at her side. Remained free from injury/falls but requires close supervision and max cueing. MICHELLE BERMUDEZ RN 03/11/2020 23:35 * Plan of Care - Rhona Albarran RN - 03/11/2020 1418 EDT Problem: Daily Care Plan Goals Goal: Care Plan Documentation Outcome: Met This Shift Flowsheets (Taken 03/11/2020 1000) Goal This Shift: Adequate pain control. Pt continues to c/o frontal headache pain 4. Tylenol and dilaudid moderately effective for pain control. Participating with all therapies. * Plan of Care - Anne Marie Villalobos RN - 03/11/2020 0555 EDT Problem: Daily Care Plan Goals Goal: Care Plan Documentation Outcome: Ongoing Flowsheets Taken 03/11/2020 0551 Area of Focus: Sleep Taken 03/11/2020 0414 Goal This Shift: Pt will get adequate sleep tonight Note: Pt is alert and oriented to person and place. Bed alarm in place as pt is impulsive and does not always ring for assistance. Pt rang appropriately tonight to get to the bathroom, however did need cues to have helmet placed and cues to not get up on her own from the bathroom. Pt noted to be asleep on most hourly rounds. When pt was seen awake pt c/o frontal headache and nausea. See eMAR for medication administration. Pt noted to be asleep within the hour. Free water held tonight as pt was c/o nausea. Continue to monitor pt for pain control and GI status. * Plan of Care - Michelle Bermudez RN - 03/10/2020 1671 EDT Data: Pt here s/p L temporal hemorrhage; missing L boneflap. Pt is AAOx3 but has expressive aphasia, some receptive(but aware of confusion). Pt has pain in forehead s/p CVA. Also c/o stomach pain. Action: Pt given prn tylenol prior to dinner meal. Response: Pt c/o persistent severe pain after tylenol administration; c/o nausea as well. Zofran given with + results. 4mg Dilaudid then given(c/o severe pain) at 1915. Pt reported good effect. Pt used call miranda appropriately but struggled to wait for staff to be fully prepared for assist. She only ate a few bites of dinner meal due to nausea- responded well to zofran. BP soft at HS: 85/60 manually. MD updated and 25mg Metoprolol held; new parameters placed by MD. Pt sleeping on hourly rounds after HS medication administration, RR WNL. MICHELLE BERMUDEZ RN 03/10/2020 22:56 * Plan of Care - Rhona Albarran, AZALEA - 03/10/2020 1416 EDT Problem: Daily Care Plan Goals Goal: Care Plan Documentation Outcome: Met This Shift Flowsheets (Taken 03/10/2020 0935) Area of Focus: Safety Goal This Shift: Pt will use call miranda and wait for staff assist. Remote observation discontinued this shift. Bed alarm/Tabs used. No unsafe behavior noted. Call miranda within reach and pt encouraged to use it for staff assist. Ever Zamarripa and pt notified of tentative discharge date of . Plan is to continue completing discharge goals. * Patient Care Conference - Jaden Rutherford MD - 03/10/2020 0825 EDT Inpatient Acute Rehabilitation Unit - Interdisciplinary Team Conference Note Ynes White 50 y.o. female Team Conference Date/Time: 03/10/2020 @1205 Admit Date/Time: 03/02/2020 13:13 Primary Rehab diagnosis: BI Non-Traumatic Comorbid Conditions: Patient Active Problem List Diagnosis ??? Back pain ??? Chronic low back pain ??? Encounter for insertion or removal of intrauterine contraceptive device ??? Nicotine dependence, unspecified, uncomplicated ??? Perimenopausal ??? Post concussion syndrome ??? Tobacco abuse ??? Cerebral venous sinus thrombosis ??? Cerebral venous thrombosis ??? Brain herniation (HCC-CMS) ??? Cerebral edema (HCC-CMS) ??? Left-sided nontraumatic intracerebral hemorrhage (HCC-CMS) Progress towards goals: Nursing: Pain Management: Ongoing, prn tylenol and dilaudid effective for pain control.,, Medication Management: Ongoing, dependent for all meds and lovenox injections.,, Nutritional deficits: Ongoing, has been accepting approximately 40-50% of breakfast and lunch. Fluids encouraged as pt frequently declines free water flushes through peg tube. Has refused feedings at times due to c/o stomach pain and nausea/vomiting., and Safety: Ongoing, pt continues on remote observation. Bed alarm and tabs used in chair. Pt can be impulsive and fast moving. Call miranda is within reach and pt encouraged to use it for staff assist., OT: Progress limited primarily by deficits in communication, pain and fatigue. See below for additional barriers. Accurately identifying dates on the calendar. Recognizing photos of family and friends, but is not effective with naming. She identifies need for her helmet. Visual impairments are present, but specifics are unclear. Vision screening continuing as tolerated as this has been a trigger for headaches. PT: Notable gains include improved activity tolerance, improving dynamic balance, gradually improving independence with transfers and ambulation and Progress limited primarily by pain (head, stomach,LLE), fatigue, emesis/reflux after tube feeds. See below for additional barriers Gait: The patient ambulates with min contact assist of 1 with no device for 75- 200 feet. Gait deviations: reaches for objects to hold onto, shuffling pattern at times, antalgic gait, decreased L stance time, increased DL stance time Stairs: Patient negotiates with min contact assist of 1up and down 8 stairs with 2 rails. Self-Care:Bed Mobility: Sit->supine: independently with flat bed and no rails. Supine->sit: independently with flat bed and no rails. Transfers: Bed < > Chair: stand-step with min contact assist of 1 ANESTHESIOLOGY PHYSICIAN ASSISTANT: Ynes currently presents with??severe??expressive and receptive aphasia, most consistent with Wernicke's type but with some deviation from typical Wernicke's type presentation.??Patient appears to be able to follow some basic 1-step commands effectively provided context, models, slow auditory presentation of information, and tactile cues as needed. Repetition, object naming, word fluency, sentence completion, and responsive speech are all significantly impaired. Ynes demonstrates a favorable response to use of gestures and written single context words to assist with her auditory comprehension. Expressive language is characterized as fluent but mostly consists of word salad with many instances of jargon, neologisms, and paraphasias with occasional moments of intelligible discourse scattered throughout.??Ynes's discourse could also be described as tangential and perseverative.??She attempts to utilize gestures to augment her expressive language, but is not always successful. She is also demonstrating breakdowns in reading comprehension at the short sentence level and significant deficits in written expression at the word level, compounded by impaired auditory comprehension preventing writing to dictation and impaired naming preventing written naming. These deficits impact the patient's ability to functionally??communicate her wants, needs, and ideas and hold conversation. She presents with severe impairments in reading comprehension, however, she demonstrates some success with reading comprehension at the word level, which appears to be a relative strength compared to her auditory comprehension. She exhibits significant breakdown in reading comprehension at the short sentence level. Ynes also demonstrates significant deficits in written expression at the single word level. She demonstrates relative strength in copying words and sentences, as well as writing numbers. ?? Ynes??Cindy also??currently presents with a mild??oropharyngeal phase??dysphagia characterized by slightly reduced bolus manipulation,??slightly??delayed??swallow response, adequate hyo-laryngeal excursion via palpation, and multiple swallows of each bolus. No overt signs/ symptoms of laryngeal penetration/ aspiration were identified. Etiology of dysphagia is??neurogenic. CN exam suggests??involvement of??CN XII (Hypoglossal).??Patient demonstrates the following aspiration risk factors:??s wallowing problems and high risk population for silent aspiration (CVA). Based on patient's oral care, likelihood of presence of aspiration, and immune system status,??Ynes??remains at slightly increased??risk of aspiration at this time (Langmore, 2002; Óscar et. al, 2005, 2008, 2012). Compensatory strategies of slightly modified textures (Dysphagia 4), small bites/sips, and use of multiple swallows??appear effective??in decreasing risk of aspiration. Prognosis for improvement in swallow function is judged to be good??at this time secondary to anticipated neurologic recovery.??Anticipatepatient will tolerate a Dysphagia 4 diet level with thin liquids and may progress to a regular dietwith skilled 1:1 intervention.? Based on evaluation to date, it has been determined that the patient demonstrates deficits that impact functioning in daily activities and hinder participation in life situations.??Patient currently??requires assistance from??others??to communicate basic wants and needs and direct her??medical care. ??Pt will continue to benefit from her needs being anticipated and simplified information presentedto her. Information should be repeated and said in different ways, and augmented with pictures and gestures.??The patient is demonstrating strengths in??motivation and some intact basic expressive language skills??which should be utilized during the patient's plan of care to maximize gains. Contextual factors that may impact the patient's ability to progress toward rehab goals include: severity of language impairment,??need for physical assistance, tolerance level for therapy,??and pain.??Basedon patient's tolerance level, it is recommended that patient participate in 30 minute BID sessions and build toward 60 minute sessions as tolerated.??Ynes currently remains appropriate for 30 min BID sessions based on her level of arousal, fatigue, and engagement. ?? Given patient's age, independence prior to admission, and social/occupational demands,??she??would benefit from intensive ANESTHESIOLOGY PHYSICIAN ASSISTANT intervention.??Based on the patient's rehab potential, motivation, prior level of function, and the contextual factors, the patient's prognosis is considered good. It is anti cipated that the patient will make functional gains in??expressive and receptive language skills??with intensive skilled 1:1 speech language pathology services in the inpatient rehabilitation setting. She will need ongoing intensive ANESTHESIOLOGY PHYSICIAN ASSISTANT services via home health, outpatient, or telepractice when sheis transitioned out of this setting. Medical Complications: Monitoring nutrition, craniectomy site, anticoagulation. Level of Risk & Environmental Privilege: B Pre-Hospital Living Setting and Support System: Lives in [place], [place] with significant other in one level apartment, no stairs to enter; 24-hour supervision, Boyfriend lives with her but works during day, siblings can provide daytime coverage if needed. Barriers to Discharge: Impaired mobility s/p L ICH - pt has decreased participation in life roles, and activity limitations with physical assist required for functional transfers and ambulation, inability to cover household distances ambulating at this time, and inability to complete stairs at thistime. Functional deficits with self-care and mobility with impaired reactive and anticipatory postural control, BLE weakness, poor activity tolerance, pain in head and LLE, fatigue and decreased arousal. Efforts to Remove Barriers: Patient is tolerating Acute IP Rehab Program intensity well and making significant functional progress. Full rehab program to increase the patient's level of independence with self-care and functional mobility to decrease the amount of assistance and/or supervision needed at discharge. Additional Team Conference Discussion: Patient is making progress towards established Acute IP Rehab goals somewhat lower than anticipated. Some discussion of rate of progress and acute ip rehab goals. Limited by pain and communication. Discharge date changed to add additional days appropriate for s afe, successful discharge. Equipment needs are being address and are anticipated to be met by discharge. Patient/family education is in process and team feels patient/family will be ready for discharge as scheduled. Anticipated Actual Discharge Disposition: Discharge Location: Home Caregiver at Discharge: Spouse/significant other/domestic partner Supervision/Assistance at Discharge: 24 hour supervision Revised Expected Discharge Date: 03/23/20 Follow-Up Services: Home health with Nursing, OT, PT, ANESTHESIOLOGY PHYSICIAN ASSISTANT and home health aid Anticipated Home Care Needs: Anticoagulation - Lovenox Reassessment of goals or treatment program: Goals maintained Assessment of need for Acute Rehabilitation level of care: The expected course of treatment continues to require an interdisciplinary approach to maximize interventions and progress towards functional goals established., The patient generally participates actively in therapy at expected intensity levels., Continue therapies by OT, PT and ANESTHESIOLOGY PHYSICIAN ASSISTANT and For a total of 3 hours per day, 5 days per week Additional interdisciplinary team information: Patient/Caregiver Communication: Nurse will inform patient/family of discharge plan and estimated length of stay Full name and professional designation of each interdisciplinary steam presser physically in attendance for this team conference. Rehabilitation Physician: Jaden Rutherford MD I lead this weekly interdisciplinary team meeting and was responsible for making the final decisions regarding the patient???s treatment in the IRF. I concur with all decisions made by the interdisciplinary team. Repairer Recreational Vehicle: Elda Peacock RN Case Manager: Isamar Downs RN Nurse: Page Albarran RN OT: Eliza Douglas OT PT: Milli Singh PT, ANESTHESIOLOGY PHYSICIAN ASSISTANT: Oliva Martinez M.S., CCC-ANESTHESIOLOGY PHYSICIAN ASSISTANT Many members of the team attended this Team Conference via Skype in an effort to facilitate social distancing as we are currently in a National State of Emergency over the coronavirus pandemic. * Plan of Care - Anne Renae RN - 03/10/2020 0441 EDT Data: Received report at 0005 - pt appears to be asleep in bed. Remains on Remote monitoring for safety issues. Action: Received PEG feeding & free water at 0036 (did not receive Bedtime feeding at 2100-per JAN documentation) Tolerated PEG feeding. Continue to do hourly monitoring for pain, safety issues, & assistance with ADL's. Response: Pt called at 0425 that she can not go back to sleep-states she has been awake for a whiledue to headache & receiving Medication via PEG several hours ago - received Dilaudid via PEG & flushed with Free water. Continues to have word salad speech. Pt is able to reposition herself in bed independently. Appeared to be asleep on hourly rounds as documented. ANNE RENAE RN 03/10/2020 4:41 * Plan of Care - Blanca Llamas RN - 03/09/2020 2004 EDT Problem: Daily Care Plan Goals Goal: Care Plan Documentation Outcome: Ongoing Flowsheets Taken 03/09/2020 1950 Area of Focus: Nutrition/ Diet Taken 03/09/2020 1600 Goal This Shift: eat 50% of meal, take free water Note: Data: Slept thru supper woke for pain meds, One walk to Br but no void. Set up with meal tray, I'll get to it. Action: Ate 30% sitting EOB at end of bed. I'll pick at it. Liked OJ/cran mix. Agreed to change of GT dressing, she directed, then allowed 1/2 TF, free water, also received PJ via GT r/t no st x 2 days, distant BS. Response: Mood good. No nausea. Now relaxing in bed, talking on phone. BLANCA LLAMAS RN 03/09/2020 19:58 * Plan of Care - Rhona Albarran RN - 03/09/2020 1409 EDT Problem: Daily Care Plan Goals Goal: Care Plan Documentation Outcome: Met This Shift Flowsheets (Taken 03/09/2020 9353) Area of Focus: Safety Goal This Shift: No falls/injury this shift. No unsafe behavior noted. Call miranda within reach with frequent reminders to use for staff assist. Helmet worn while OOB. [place] removed from crani incision. DANI without drainage. * Plan of Care - Gema Carr RN - 03/09/2020 0300 EDT Problem: Daily Care Plan Goals Goal: Care Plan Documentation Outcome: Met This Shift Problem: Safety: Goal: Will remain free from falls Outcome: Ongoing Problem: Pain: Goal: Pain level will decrease Outcome: Ongoing Data: Continue hourly observations. Continues with remote observation and bed alarm for safety due to impulsivity and current inability to call reliably for assistance. Action: Monitor for safety, pain, sleep. Response: Appeared to sleep comfortably. Free water to peg tube deferred since patient has been sleeping and since she has been declining it. GEMA CARR RN 03/09/2020 3:00 * Plan of Care - Shasha Braswell RN - 03/08/2020 2232 EDT Pt has continued to refuse her tube feeds as well as her free water. When I give pt her pills I encourage her to drink a lot of fluid with the pills so that they will be more effective. This does seem to work with the pt. Pt did allow me to give her the lovenox shot again. Gave pt pain meds at 1830. Pt ate about 30% of her dinner. D: Call light and bedside stand within reach. A: Monitored for safety as well as ability to sleep/rest; rounding hourly and attending to requestsfor personal care needs and change in comfort level (see flow sheet). Assisted with personal care as needed. R: Monitor for personal care needs, and any change in comfort. Establish and maintain patient's night time rituals to promote sleep, paying attention to morning nursing/therapy schedules. * Plan of Care - Gema Carr RN - 03/08/2020 0328 EDT Problem: Pain: Goal: Pain level will decrease Outcome: Met This Shift Problem: Daily Care Plan Goals Goal: Care Plan Documentation Outcome: Ongoing Problem: Safety: Goal: Will remain free from falls Outcome: Ongoing Problem: Bowel/Gastric: Goal: Gastrointestinal status for postoperative course will improve Outcome: Ongoing Data: Continue hourly observations. Continue constant observation due to impulsivity and inability to use call miranda for assist. Action: Monitor for safety, pain, sleep. Peg tube dressing clean/dry/intact; free water deferred due to abdominal discomfort. Response: Appeared to sleep in naps. At 0245 assisted to bathroom to void. Complained of abdominal discomfort with frequent belching; requested/received tums 1 tab at 0256. Complained of head pain #4; received dilauding 2 mg po and tylenol 650 mg po at 0254. She returned comfortably to sleep. GEMA CARR RN 03/08/2020 3:28 * Plan of Care - Shasha Braswell RN - 03/07/2020 1947 EDT Pt had a moderately decent evening with me. She has continued to refuse the tube feedings, but she ate approx 50% of her dinner, and she allowed me to give her the free water, which I did at 200ml because who knows how she will feel about it the next time. She also was able to take her lovenox shotwith very little complaints. D: Call light and bedside stand within reach. A: Monitored for safety as well as ability to sleep/rest; rounding hourly and attending to requestsfor personal care needs and change in comfort level (see flow sheet). Assisted with personal care as needed. R: Monitor for personal care needs, and any change in comfort. Establish and maintain patient's night time rituals to promote sleep, paying attention to morning nursing/therapy schedules. * Plan of Care - Hipolito Ragland RN - 03/07/2020 1331 EDT Problem: Nutritional: Goal: Ability to attain and maintain optimal nutritional status will improve Outcome: Ongoing Data: Assumed care at 0700. Notable expressive and receptive language deficits. Patient does well understanding one word written on a piece of paper w/ simple explanations. Appetite poor, consumed bites of breakfast and lunch. Fluid intake 240ml today. Continues w/ 1:1 for inability to use call miranda, and getting OOB on her own. [place] to head approximated, C/D/I. 8/10 pain on head where surgical incisions are located. Loose stools x2 today. Action: Administered PO dilaudid 2mg and 650mg PO Tyl whole w/ water, tolerated well. Patient refused lovenox, communication barriers exist with the reason as to why she refused. Administered 1/2 of tube feeding, patient immediately felt severe stomach discomfort, tube feeding stopped. Bowel medications held at this time due to loose stools. Response: Patient continues to rest in bed. Stomach discomfort subsided. Denies pain at this time. Will continue safety checks. HIPOLITO RAGLAND RN 03/07/2020 13:32 * Plan of Care - Gema Carr RN - 03/07/2020 0153 EDT Problem: Daily Care Plan Goals Goal: Care Plan Documentation Outcome: Met This Shift Problem: Pain: Goal: Pain level will decrease Outcome: Met This Shift Problem: Safety: Goal: Will remain free from falls Outcome: Ongoing Data: Continue hourly observations. Continue constant observation for safety. Action: Monitor for safety, pain, sleep. Allow for sleep. When awake, request that peg-tube be assessed and flushed. Response: Patient reported from evening shift to be irritable, declining free water in peg-tube, and requesting to sleep. Patient appeared to sleep comfortably until 0509 when she complained of head/suture pain #3; she requested/received dilaudid 2 mg po and tylenoll 650 mg po. She declined to have free water through her peg tube stating 'wait until I wake up'. GEMA CARR RN 03/07/2020 1:53 * Plan of Care - Blanca Llamas RN - 03/06/2020 2200 EDT Problem: Daily Care Plan Goals Goal: Care Plan Documentation Outcome: Not Met This Shift Flowsheets Taken 03/06/2020 2144 Area of Focus: Nutrition/ Diet Taken 03/06/2020 1700 Goal This Shift: eat50% supper Note: Data: set up for supper, Boost on tray. Had been resting in bed, drowsy Has received tylenol at 1445. Dilaudid 2mg at 1745 after Walk A x 2 with rw on unit A x 2, 300'. Action: Had 1:1 attendant at bedside, encouraging intake. Pt had a few bites and a few sips then would not continue Difficult to understand lack of interest with word salad. Implied that the abd hurt, no hunger. Response: Awake/asleep in bed through to . Talked with sister on phone, arguing then consoling her. With hs meds took meds whole with the prosource/colace/ cran juice. Irritated and argued about need for lovenox Eventually agreed to allow lovenox Same argument/conversation as last oriana at . Would not allow TF, tube check or free water, come back later Will attempt at 2229 as she did allow yesterday. 2234: Pt refused any use of GT or dressing, Leave me alone, I'll do it in the morning, Refused aspiration , water or TF via tube this shift. BLANCA LLAMAS RN 03/06/2020 21:44 * Plan of Care - Myron Mckenzie RN - 03/06/2020 1421 EDT Problem: Daily Care Plan Goals Goal: Care Plan Documentation Flowsheets (Taken 03/06/2020 0840) Area of Focus: Nutrition/ Diet Goal This Shift: Encouarge nutritional intake Data: Pt is on a dysphagia 4 diet with this. Pt has an order for tube feeds- Nutrin 1.5 if she eats <50% of meals. Pt anxious and fidgety around Lovenox administration. Slowly explained process andallowed pt to express feelings. Lovenox administered and pt screamed and cried out, stating that hurts!. Pt then refused all other meds via PEG- Prosource, multivitamin, and tube feed. Kept stating, just give me a minute during each approach and rolling back and forth like she was uncomfortable. Pt only ate 25% of breakfast. Action: Encouraged PO intake and monitored fluid intake and meal consumption. Gave chocolate boost after breakfast. Response: Pt drank 240cc of chocolate boost during late morning, with a total of 910cc of fluids for the whole shift. Pt ate 50% of lunch with encouragement of chargemaster analyst sitting with her. Pt appearedless anxious this afternoon and agreed to take a walk in the [place]. Pt walked approx. 200ft with minassist of 1 and RW. MYRON MCKENZIE RN 03/06/2020 14:22 * Plan of Care - Kaci Love RN - 03/06/2020 0601 EDT Problem: Daily Care Plan Goals Goal: Care Plan Documentation Outcome: Met This Shift Flowsheets (Taken 03/06/2020 0521) Area of Focus: Sleep Goal This Shift: Adequate sleep this shift Pt asleep at start of the shift. Cont' on constant observation for safety. Pt up to BR X 1 this shift. Tylenol 650 mg PO and Dilaudid 2 mg PO administered at 0522 for incision site pain. G-tube dressing intact - 80 ml of residual, 120 ml of free water given via g-tube. Continue to monitor. * Plan of Care - Blanca Llamas RN - 03/05/2020 2309 EDT Problem: Daily Care Plan Goals Goal: Care Plan Documentation Outcome: Ongoing Flowsheets Taken 03/05/2020 2249 Area of Focus: Nutrition/ Diet Taken 03/05/2020 1600 Goal This Shift: tolerate food, TF Note: Data: Pt with dysphagia 4 diet and thins. Used BR at 1700 but would not sit in chair for supper. Zofran given at 1700 per MD recommendation. Action: with encouragement, pt ate almost 50% of meal, intake 400cc. No c/o nausea, no emesis.Up for shower and then agreed reluctantly with much explanation why GT dressing needed to be changed. Much scabby and abigail blood on cleansing and new dressing change. Discussed need for free water. Pt agitated with activity of shower and verbal explanations of nurse. Response: Pt agreed small amount of free water. Pulled back some TF residual and then instilled 40cc H2O. With hs meds pt again agitated about use of lovenox despite rationale explained, and adamantly refused HS TF, water or any residual check. After nurse left room, pt jumped out of bed walked to curtain, flung it shut and returned to bed. Bed alarm sounded and sitter was at bedside kiko. At 1030 pt requested pain meds for QUINONES 9/10, and kindly said she would take the TF now. Nutren 1.5 240cc and H20 130cc given without complaint or emesis. Provide calm environment Give explanation with simple statements. Allow pt time to process. BLANCA LLAMAS RN 03/05/2020 22:49 * Plan of Care - Myron Mckenzie RN - 03/05/2020 1407 EDT Problem: Daily Care Plan Goals Goal: Care Plan Documentation Outcome: Met This Shift Flowsheets (Taken 03/05/2020 0830) Area of Focus: Pain/ Comfort Goal This Shift: Pt will be comfortable this shift Data: Pt is on a Dysphagia 4 diet with thin liquids. Pt with ongoing poor PO intake. Tube feed-Nutrin 1.5 QID and HS. Pt ate <25% of breakfast and lunch. Prior to 0800 tube feed administration pt fearful and appeared anxious. Explained process prior to bolus and gave pt periods of rest between process. Pt immediately c/o abdominal pain after tube feed administration and had a scant amount of emesis-undigested food. Residual was 0. LBM on 03/04, . Pt will not allow this RN to palpate abdomen. Was able to peel back tape on PEG dressing to look underneath, but pt stated it was painful. Action: MD notified and received order for PRN Zofran. Offered Zofran, but pt declined. Provided emotional support. Monitored residuals. Response: Pt stated she felt better during late morning and was seen smiling. Pt ate <25% of lunch and pt stated she would allow tube feed. Checked residual for 0. Administered bolus slowly and talked throughout process for distraction. Pt did well until the end of the tube feed, when she started crying out, rolling back and forth, and heavily breathing, stating, it hurts, it hurts!. Pt point ed to her stomach, chest, and throat when asked of the location of pain. Pt then had a small amountof emesis and stated she started to feel better. Pt currently resting/sleeping. notified again of additional s/s. Will try offering Zofran prior to administration next time and stop if she is experiencing any pain. Will continue to monitor. MYRON MCKENZIE RN 03/05/2020 14:08 * Plan of Care - Adilene Sahni RN - 03/05/2020 0668 EDT Data: Patient slept soundly throughout most of shift. At 0230 patient very tired, no need for pain medication at this time and PEG tube assessment/free water refused. Action: Patient assessed, monitored, pain medication administered at 0330 as patient reporting painhurts worse on Auguste Salomon scale. PO fluids encouraged. Response: Patient remained asleep on each hourly check. One to one sitter remains in place. ADILENE SAHNI RN 03/05/2020 6:43 * Plan of Care - Julissa Nunez RN - 03/04/2020 2214 EDT Problem: Daily Care Plan Goals Goal: Care Plan Documentation Flowsheets (Taken 03/04/2020 1730) Area of Focus: Pain/ Comfort Goal This Shift: Adequate pain control Pt s/p left front temporal IPH rt to cerebral venous sinus thrombosis. Ongoing pain management withQ4 dilaudid and tynl. Pt continues to rate pain 4-6/10 this shift. Pt was anxious but distractible.Pt continues to have poor appetite. Administered 1.5 nutrient as per order. Encouraged intake of food and fluids. Continues 1:1 sitter for safety concerns. Hourly checks maintained. Will continue to monitor. * Plan of Care - Myron Mckenzie RN - 03/04/2020 1327 EDT Problem: Daily Care Plan Goals Goal: Care Plan Documentation Flowsheets (Taken 03/04/2020 1001) Area of Focus: Pain/ Comfort Goal This Shift: Pt will be comfortable this shift Data: Pt s/p left temporoparietal hemorrhage with decompressive craniectomy. Pt holding stomach this AM after having a loose BM. States, everything hurts. Pt appeared anxious around med administration via PEG and Lovenox injection, crying out and fidgeting in the bed. Pt stood up from the bed quickly while staff was in room, stating she needed to go to the bathroom. Pt did not have helmet on. St aff donned helmet and assisted pt to the bathroom with RW. Pt has had poor PO intake. Eating <25% of meals. Action: PRN Tylenol and Dilaudid given (see EMAR). notified of decreased PO intake and anxiety. Order received for tube feeds if pt eats <50% of meal and a nutrition consult. Allowed for rest between therapy and decreased environmental stimuli. 1:1 at bedside. Response: Pt sleeping upon reassessment, between therapy. Pt currently eating lunch meal and appears less anxious and more comfortable this afternoon. Will continue to monitor. MYRON MCKENZIE RN 03/04/2020 13:27 * Plan of Care - Sera Martinez - 03/04/2020 0535 EDT Problem: Daily Care Plan Goals Goal: Care Plan Documentation Outcome: Met This Shift Flowsheets (Taken 03/04/2020 0133) Area of Focus: Sleep Goal This Shift: pt will get adequate sleep this shift Note: D: Patient has been found sleeping at hourly rounds x 6. Call light and bedside stand within reach.Pt received sedating med at and is currently breathing w/o difficulty. A: Monitored for safety as well as ability to sleep/rest; rounding hourly and attending to requestsfor personal care needs and change in comfort level (see flow sheet). Assisted with personal care as needed. Patient continues to require skilled Rehab nursing care. Encouraged patient to use call light if any need for assistance develop. Nightlight is in use. R: Monitor for adequate sleep patterns, personal care needs, and any change in comfort. Establish and maintain patient's night time rituals to promote sleep, paying attention to morning nursing/therapy schedules. Patient's sleep is adequate for shift . Note Pt slept well, only up once to void and medicated for pain x 1 from 11p to 0536. No other needs still has trouble with communication, alert to self. Has 1:1 sitter for shift * Plan of Care - Julissa Nunez RN - 03/03/2020 2130 EDT Problem: Daily Care Plan Goals Goal: Care Plan Documentation Flowsheets (Taken 03/03/2020 1752) Area of Focus: Pain/ Comfort Goal This Shift: Adequate pain control. 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 Alert to person. Pt stated pain 4 this shift. Pt was restless and holding her head and stating pain, hurts , hurts. VS WNL. Notified Dr Way about her pain. Administered pain meds. Assessed pain hourly. Tried using distraction technique. Keep noise and light low level. Pt currently sleeping. Will continue to monitor her pain. * Plan of Care - Adali Hart RN - 03/03/2020 1500 EDT Problem: Daily Care Plan Goals Goal: Care Plan Documentation Outcome: Ongoing Problem: Safety: Goal: Will remain free from falls Outcome: Ongoing Data: Oriented to name Expressive aphasia 1 assist to bathroom roll walker/gait belt , helmet oob Impulsive x1 this am getting oob to use bathroom Needed to use face scale for pain rating for headache Hypersensitive to touch with lovenox injection Action: 1:1 sitter in room Response: Toileted x 2 Lights low in room for low stimulation No TV on Continue 1:1 to monitor safety and helmet oob Dilaudid 4 mg effective for headache ADALI HART RN 03/03/2020 15:01 Called Isamar WARD, Stacey Chapa has called and would like information regarding family leave [phone] * Patient Care Conference - Jaden Rutherford MD - 03/03/2020 0938 EDT Inpatient Acute Rehabilitation Unit - Interdisciplinary Team Conference Note Ynes White 50 y.o. female Team Conference Date/Time: 03/03/2020 @1205 Admit Date/Time: 03/02/2020 13:13 Primary Rehab diagnosis: BI Non-Traumatic Comorbid Conditions: Patient Active Problem List Diagnosis ??? Back pain ??? Chronic low back pain ??? Encounter for insertion or removal of intrauterine contraceptive device ??? Nicotine dependence, unspecified, uncomplicated ??? Perimenopausal ??? Post concussion syndrome ??? Tobacco abuse ??? Cerebral venous sinus thrombosis ??? Cerebral venous thrombosis ??? Brain herniation (HCC-CMS) ??? Cerebral edema (HCC-CMS) ??? Left-sided nontraumatic intracerebral hemorrhage (HCC-CMS) Progress towards goals: Nursing: Pain-headache Dilaudid 4 mg po this am Low stim and lights low in room Mobility-1 assist, gait belt, RW Skin-cranial incision intact with ghassan Medication-whole with thin liquids PEG for some medications Safety-Oriented to person 1:1 sitter in room OT: Evaluation in Process PT: Evaluation in Process Gait: The patient ambulates with min contact assist of 1 with no device for 75 feet. Gait deviations: short step length, decreased L stance time, antalgic gait, decreased foot clearance B, increased DL support time Stairs: Not evaluated due to limited pt activity tolerance Self-Care:Bed Mobility: Sit->supine: modified independent with flat bed and no rails. Supine->sit: modified independent with flat bed and no rails. Transfers: Bed < > Chair: stand-step with min contact assist of 1 ANESTHESIOLOGY PHYSICIAN ASSISTANT: Pending completion of ANESTHESIOLOGY PHYSICIAN ASSISTANT evaluation Medical Complications: Monitoring craniectomy site, nutrition Pre-Hospital Living Setting and Support System: Lives in an apartment in [place], [place], Lives with significant other who works during the day. Has brother and sister nearby who can assist if needed. Barriers to Discharge: Functional deficits with self-care and mobility - evaluations in process. Efforts to Remove Barriers: Initial evaluations indicate that patient is appropriate for acute IP Rehab setting - able to tolerate 3 hours of therapy, 5 days per week with functional goals of practical value. Full rehab program to increase the patient's level of independence with self-care and functional mobility to decrease the amount of assistance and/or supervision needed at discharge. Additional Team Conference Discussion: Team discussion of initial evaluations, progress to date andgoals for Inpatient Acute Rehab program. Team discussed pain as impacting performance. Anticipated Actual Discharge Disposition: Discharge Location: Home Caregiver at Discharge: Spouse/significant other/domestic partner and Sibling Supervision/Assistance at Discharge: 24 hour supervision Discharge Date: 03/17/20 Follow-Up Services: Home health with Nursing, OT, PT, ANESTHESIOLOGY PHYSICIAN ASSISTANT and home health aid Anticipated Home Care Needs: None anticipated Reassessment of goals or treatment program: Evaluations in progress. Assessment of need for Acute Rehabilitation level of care: The expected course of treatment continues to require an interdisciplinary approach to maximize interventions and progress towards functional goals established., The patient generally participates actively in therapy at expected intensity levels., Continue therapies by OT, PT and ANESTHESIOLOGY PHYSICIAN ASSISTANT and For a total of 3 hours per day, 5 days per week Additional interdisciplinary team information: Patient/Caregiver Communication: Nurse will inform patient/family of discharge plan and estimated length of stay Full name and professional designation of each interdisciplinary steam presser physically in attendance for this team conference. Rehabilitation Physician: Jaden Rutherford MD I lead this weekly interdisciplinary team meeting and was responsible for making the final decisions regarding the patient???s treatment in the IRF. I concur with all decisions made by the interdisciplinary team. Repairer Recreational Vehicle: Elda Peacock, cnc milling machine operator: Isamar Downs RN Nurse: Adali Hart RN OT: Eliza Douglas OT PT: Milli Singh PT, PT, 03/03/2020 8:23 ANESTHESIOLOGY PHYSICIAN ASSISTANT: Silva Calderón MS [facility]-ANESTHESIOLOGY PHYSICIAN ASSISTANT Many members of the team attended this Team Conference via Skype in an effort to facilitate social distancing as we are currently in a National State of Emergency over the coronavirus pandemic. * Plan of Care - MartinezSera - 03/03/2020 0614 EDT Problem: Daily Care Plan Goals Goal: Care Plan Documentation Outcome: Met This Shift Flowsheets (Taken 03/03/2020 0307) Area of Focus: Sleep Goal This Shift: pt will get adequate sleep this shift Note: D: Patient has been found sleeping at hourly rounds x 6. Call light and bedside stand within reach.Pt received sedating med at and is currently breathing w/o difficulty. A: Monitored for safety as well as ability to sleep/rest; rounding hourly and attending to requestsfor personal care needs and change in comfort level (see flow sheet). Assisted with personal care as needed. Patient continues to require skilled Rehab nursing care. Encouraged patient to use call light if any need for assistance develop. Nightlight is in use. R: Monitor for adequate sleep patterns, personal care needs, and any change in comfort. Establish and maintain patient's night time rituals to promote sleep, paying attention to morning nursing/therapy schedules. Patient's sleep is adequate for shift . Note: Patient slept throughout shift, woke up x 1 to use bathroom, c/o pain and medicated with scheduled tylenol and prn dilaudid, peg tube checked, drsg dry/intact, no other needs through night. Had 1:1 through all of shift * Plan of Care - Julissa Nunez RN - 03/02/2020 2206 EDT Problem: Daily Care Plan Goals Goal: Care Plan Documentation Flowsheets (Taken 03/02/2020 1636) Area of Focus: Safety Goal This Shift: Pt will remain safe and free of injuries. Pt arrived this afternoon. 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 Incision open to air. Pt is alert to self. Pt was anxious and restless this evening. Pt stated pain in her head 3-07/04 this shift using face scale. Pt has hard time making conversation due to expressive aphasia and impaired thought pattern. Administered pain meds Q4. Assessed for pain. Monitored VS. Pt has 1:1 sitter due to safety concerns. Pt has poor intake of food. Pt stated no appetite. Encouraged more fluids and intake of food. Pt is one assist with transfer and has remained safe this shift.Made hourly checks. Will continue to monitor. documented in this encounter Plan of Treatment Upcoming Encounters Date Type Department Care Team (Late st Contact Info) Description 03/04/2025 14:00 EDT Telemedicine [facility] [address] [place], [place] [address] Brayan Polk MD [address] [facility] [address] [place] [address] 07/14/2025 14:30 EDT Office Visit [facility] Hematology & Oncology - [address] [id number] Evin Maria MD [address] [facility], [address] [place] [id number] Scheduled Referrals Name Type Priority Associated Diagnoses Orde r Schedule AMB CONS/FOLLOW UP SPEECH & LANGUAGE PATHOLOGY Outpatient Referral Routine Cerebral venous thrombosis Nontraumatic hemorrhage of left cerebral hemisphere (HCC-CMS) Ordered: 03/31/2020 AMB CONS/FOLLOW UP HOME HEALTH SERVICES Outpatient Referral Routine Cerebral venous thrombosis Nontraumatic hemorrhage of left cerebral hemisphere (HCC-CMS) Essential hypertension Ordered: 03/31/2020 documented as of this encounter Procedures Procedure Name Priority Date/Time Associated Diagnosis Comments HEPARIN LEVEL - LOW MOLECULAR WEIGHT HEPARIN STAT 03/28/2020 12:47 EDT HEPARIN LEVEL - LOW MOLECULAR WEIGHT HEPARIN STAT 03/25/2020 13:09 EDT MR HEAD VENOGRAM W WO CONTRAST Routine 03/23/2020 18:39 EDT HOLD BLUE TOP Routine 03/22/2020 16:32 EDT HEPARIN LEVEL - LOW MOLECULAR WEIGHT HEPARIN STAT 03/22/2020 12:54 EDT HEPARIN LEVEL - LOW MOLECULAR WEIGHT HEPARIN STAT 03/21/2020 12:30 EDT COMPLETE BLOOD COUNT Routine 03/21/2020 6:15 EDT CREATININE Routine 03/21/2020 6:15 EDT ELECTROLYTES Routine 03/21/2020 6:15 EDT COMPLETE BLOOD COUNT Routine 03/20/2020 7:31 EDT CREATININE Routine 03/20/2020 7:31 EDT ELECTROLYTES Routine 03/20/2020 7:31 EDT HEPARIN LEVEL - LOW MOLECULAR WEIGHT HEPARIN STAT 03/19/2020 8:17 EDT COMPLETE BLOOD COUNT Routine 03/19/2020 8:17 EDT CREATININE Routine 03/19/2020 8:17 EDT ELECTROLYTES Routine 03/19/2020 8:17 EDT HEPARIN LEVEL - LOW MOLECULAR WEIGHT HEPARIN STAT 03/18/2020 12:42 EDT BUN Add-On 03/18/2020 12:42 EDT CREATININE Timed 03/18/2020 12:42 EDT COMPLETE BLOOD COUNT Routine 03/17/2020 5:49 EDT CREATININE Routine 03/17/2020 5:49 EDT ELECTROLYTES Routine 03/17/2020 5:49 EDT HEPARIN LEVEL - LOW MOLECULAR WEIGHT HEPARIN STAT 03/10/2020 12:27 EDT POCT GLUCOSE, INTERFACED Routine 03/09/2020 20:16 EDT POCT GLUCOSE, INTERFACED Routine 03/09/2020 17:10 EDT POCT GLUCOSE, INTERFACED Routine 03/09/2020 11:32 EDT POCT GLUCOSE, INTERFACED Routine 03/09/2020 6:43 EDT POCT GLUCOSE, INTERFACED Routine 03/08/2020 12:[address] HEAD WO CONTRAST Routine 03/08/2020 1 1:53 EDT POCT GLUCOSE, INTERFACED Routine 03/08/2020 7:16 EDT HEPARIN LEVEL - LOW MOLECULAR WEIGHT HEPARIN STAT 03/07/2020 14:01 EDT BUN Routine 03/07/2020 6:50 EDT PREALBUMIN Routine 03/07/2020 6:50 EDT PHOSPHORUS Routine 03/07/2020 6:50 EDT CREATININE Routine 03/07/2020 6:50 EDT ELECTROLYTES Routine 03/07/2020 6:50 EDT HEPARIN LEVEL - LOW MOLECULAR WEIGHT HEPARIN STAT 03/03/2020 12:57 EDT documented in this encounter Results * HEPARIN LEVEL - LOW MOLECULAR WEIGHT HEPARIN (03/28/2020 12:47 EDT) Heparin Level - LMWH 0.80 See comment below IU/mL 03/28/2020 18:09 EDT [facility] Comment: Therapeutic Heparin Range:(twice-a-day dosing, peak sample drawn 4 hours post subcutaneous injection) for treatment of venous thromboembolism: Adults and children: 0.5 - 1.1 IU/mL : 0.5 - 1.0 IU/mL ?? Therapeutic Heparin Range:(once-a-day dosing, peak sample drawn 4 hours post subcutaneous injection) for treatment of venous thromboembolism: 1.0 - 2.0 IU/mL. Results will be overestimated in the prescence of direct Xa inhibitors (rivaroxaban, apixaban, edoxaban) or pentasaccharides such as fondparinux. Exogenous ATIII is NOT supplied in this assay. For unexpected or persistently low levels, consider measuring the patient's ATIII level. Blood VENOUS BLOOD / Unknown Venipuncture / Unknown 03/28/2020 12:47 EDT 03/28/2020 12:58 EDT us Maria Victoria Hernandez MD HEMATOLOGY & PF4 ORDERA BLES Final Result [facility] [address] [place] [address] * HEPARIN LEVEL - LOW MOLECULAR WEIGHT HEPARIN (03/25/2020 13:09 EDT) Heparin Level - LMWH 1.11 See comment below IU/mL 03/25/2020 17:15 EDT [facility] Comment: Therapeutic Heparin Range:(twice-a-day dosing, peak sample drawn 4 hours post subcutaneous injection) for treatment of venous thromboembolism: Adults and children: 0.5 - 1.1 IU/mL : 0.5 - 1.0 IU/mL ?? Therapeutic Heparin Range:(once-a-day dosing, peak sample drawn 4 hours post subcutaneous injection) for treatment of venous thromboembolism: 1.0 - 2.0 IU/mL. Results will be overestimated in the prescence of direct Xa inhibitors (rivaroxaban, apixaban, edoxaban) or pentasaccharides such as fondparinux. Exogenous ATIII is NOT supplied in this assay. For unexpected or persistently low levels, consider measuring the patient's ATIII level. Blood VENOUS BLOOD / Unknown Venipuncture / Unknown 03/25/2020 13:09 EDT 03/25/2020 13:13 EDT us Jaden Rutherford MD HEMATOLOGY & PF4 ORDERA BLES Final Result [facility] [address] [place] [address] * MR HEAD VENOGRAM W WO CONTRAST (03/23/2020 18:39 EDT) Anatomical Region Laterality Modality Head Magnetic Resonan ce 03/23/2020 19:5 6 EDT Impressions 03/23/2020 19:56 EDT Interval decrease in the clot burden within left transverse and sigmoid sinus. The left vein of Kristen continues to be diminutive at its most peripheral aspects with no new thrombus within this cortical vein identified. Postsurgical changes related to left-sided craniectomy and sequela of parenchymal injury/hemorrhage in the left temporal lobe have an expected appearance. Narrative 03/23/2020 19:56 EDT EXAM: MRV HEAD WO/W CONTRAST HISTORY: Dural venous sinus thrombosis suspected; Recent central venous thrombosis, secondary hemorrhage requiring decompressive craniectomy, severe episodic headache. TECHNIQUE: MR venogram of the head without and with intravenous gadolinium contrast. Maximal intensity projected reformatted images were obtained, adjusted on an independent workstation, and reviewed prior to interpretation. COMPARISON: None. FINDINGS: DURAL VENOUS SINUSES: Decreased clot burden within the left transverse and sigmoid sinuses with persistent thin linear filling defects at these locations. No other areas of venous sinus thrombosis. CORTICAL VEINS: The left vein of Kristen is diminutive at its peripheral aspect, similar to prior CTV. No new clot within the left vein of Kristen. No evidence of new cortical vein thrombosis thrombosis. DEEP CEREBRAL VEINS: No evidence of thrombosis. INTRACRANIAL ARTERIAL VASCULATURE: No evident abnormality. NONANGIOGRAPHIC INTRACRANIAL CONTENTS: Sequela of venous infarction [...] related to prior left-sided craniectomy are unchanged. Procedure Note Shawn Anton MD - 03/23/2020 EXAM: MRV HEAD WO/W CONTRAST HISTORY: Dural venous sinus thrombosis suspected; Recent central venousthrombosis, secondary hemorrhage requiring decompressive craniectomy,severe episodic headache. TECHNIQUE: MR venogram of the head without and with intravenous gadoliniumcontrast. Maximal intensity projected reformatted images were obtained,adjusted on an independent workstation, and reviewed prior tointerpretation. COMPARISON: None. FINDINGS: DURAL VENOUS SINUSES: Decreased clot burden within the left transverse and sigmoid sinuses withpersistent thin linear filling defects at these locations. No other areasof venous sinus thrombosis. CORTICAL VEINS: The left vein of Kristen is diminutive at its peripheral aspect, similar toprior CTV. No new clot within the left vein of Kristen. No evidence of newcortical vein thrombosis thrombosis. DEEP CEREBRAL VEINS: No evidence of thrombosis. INTRACRANIAL ARTERIAL VASCULATURE: No evident abnormality. NONANGIOGRAPHIC INTRACRANIAL CONTENTS: Sequela of venous infarction and prior hemorrhage in the left temporallobe is again seen with expected T1 hyperintensity on postcontrastsequences in the region of prior parenchymal injury. Small fluidcollection subjacent to the there are in the region of the craniectomy issimilar to prior CT. No evidence of new extra-axial collections.Postsurgical changes related to prior left-sided craniectomy areunchanged. IMPRESSION Interval decrease in the clot burden within left transverse and sigmoidsinus. The left vein of Kristen continues to be diminutive at its mostperipheral aspects with no new thrombus within this cortical veinidentified. Postsurgical changes related to left-sided craniectomy and sequela ofparenchymal injury/hemorrhage in the left temporal lobe have an expectedappearance. us Jaden Rutherford MD IMG MRI ORDERABLES Shannon l Result * HOLD BLUE TOP (03/22/2020 16:32 EDT) Hold Hold 03/22/2020 17:46 EDT [facility] Blood VENOUS BLOOD / Unknown 03/22/2020 16:32 EDT 03/22/2020 16:32 EDT us Jaden Rutherford MD LAB INFO SERVICE AND HATHAWAY PPORT & PHONE RESULT Final Result [facility] [address] [place] [id number] * HEPARIN LEVEL - LOW MOLECULAR WEIGHT HEPARIN (03/22/2020 12:54 EDT) Heparin Level - LMWH 1.08 See comment below IU/mL 03/22/2020 17:22 EDT [facility] Comment: Therapeutic Heparin Range:(twice-a-day dosing, peak sample drawn 4 hours post subcutaneous injection) for treatment of venous thromboembolism: Adults and children: 0.5 - 1.1 IU/mL [facility]: 0.5 - 1.0 IU/mL ?? Therapeutic Heparin Range:(once-a-day dosing, peak sample drawn 4 hours post subcutaneous injection) for treatment of venous thromboembolism: 1.0 - 2.0 IU/mL. Results will be overestimated in the prescence of direct Xa inhibitors (rivaroxaban, apixaban, edoxaban) or pentasaccharides such as fondparinux. Exogenous ATIII is NOT supplied in this assay. For unexpected or persistently low levels, consider measuring the patient's ATIII level. Blood VENOUS BLOOD / Unknown Venipuncture / Unknown 03/22/2020 12:54 EDT 03/22/2020 12:58 EDT Jaden Rutherford MD HEMATOLOGY & PF4 ORDERA BLES Final Result Performing Organization Address [facility] Co de Phone Number [facility] [address] [place] [address] * HEPARIN LEVEL - LOW MOLECULAR WEIGHT HEPARIN (03/21/2020 12:30 EDT) Heparin Level - LMWH 1.17 See comment below IU/mL 03/21/2020 14:09 EDT [facility] Comment: Therapeutic Heparin Range:(twice-a-day dosing, peak sample drawn 4 hours post subcutaneous injection) for treatment of venous thromboembolism: Adults and children: 0.5 - 1.1 IU/mL : 0.5 - 1.0 IU/mL ?? Therapeutic Heparin Range:(once-a-day dosing, peak sample drawn 4 hours post subcutaneous injection) for treatment of venous thromboembolism: 1.0 - 2.0 IU/mL. Results will be overestimated in the prescence of direct Xa inhibitors (rivaroxaban, apixaban, edoxaban) or pentasaccharides such as fondparinux. Exogenous ATIII is NOT supplied in this assay. For unexpected or persistently low levels, consider measuring the patient's ATIII level. Blood VENOUS BLOOD / Unknown Venipuncture / Unknown 03/21/2020 12:30 EDT 03/21/2020 12:37 EDT Jaden Rutherford MD HEMATOLOGY & PF4 ORDERA BLES Final Result Performing Organization Address [facility] Co de Phone Number [facility] [address] [place] [address] * CREATININE (03/21/2020 6:15 EDT) Creatinine 0.65 0.52 - 1.04 mg/dL 03/21/2020 8:28 EDT [facility] eGFR 102 >60 mL/min/1.7 3m2 03/21/2020 8:28 EDT [facility] Comment:eGFR calculated mickey redd CKD-EPI equation for non- Americans. Multiply eGFR by 1.16 for patients. Blood VENOUS BLOOD / Unknown Venipuncture / Unknown 03/21/2020 6:15 EDT 03/21/2020 7:47 EDT Neal Moscoso MD CHEMISTRY & BLOOD GAS ORDER [place] Final Result Performing Organization Address [facility] de Phone Number [facility] [address] [place] [address] * (ABNORMAL) ELECTROLYTES (03/21/2020 6:15 EDT) Sodium 134(L) 136 - 145 mEq/L 03/21/2020 8:28 EDT [facility] Potassium 5.2(H) 3.5 - 5.0 mEq/L 03/21/2020 8:28 EDT [facility] Chloride 100 96 - 110 mEq/L 03/21/2020 8:28 EDT [facility] CO2 Total 26 22 - 32 mEq/L 03/21/2020 8:28 EDT [facility] Blood VENOUS BLOOD / Unknown Venipuncture / Unknown 03/21/2020 6:15 EDT 03/21/2020 7:47 EDT Neal Moscoso MD CHEMISTRY & BLOOD GAS ORDER [place] Final Result Performing Organization Address [facility] de Phone Number [facility] [address] [place] [address] * (ABNORMAL) COMPLETE BLOOD COUNT (03/21/2020 6:15 EDT) WBC 5.16 4.00 - 12.40 K/cmm 03/21/2020 8:00 EDT [facility] RBC 3.71(L) 3.86 - 5.04 M/cmm 03/21/2020 8:00 EDT [facility] Hemoglobin 11.6 11.6 - 15.2 gm/dL 03/21/2020 8:00 EDT [facility] HCT 34.4(L) 34.9 - 44.4 % 03/21/2020 8:00 EDT [facility] MCV 93 81 - 98 fl 03/21/2020 8:00 EDT [facility] MCH 31.3 26.7 - 33.3 pg 03/21/2020 8:00 EDT [facility] MCHC 33.7 32.1 - 35.9 gm/dL 03/21/2020 8:00 EDT [facility] RDW-CV 12.6 <14.7 % 03/21/2020 8:00 EDT [facility] RDW-SD 43.2 <50.4 fl 03/21/2020 8:00 EDT [facility] PLT 220 141 - 377 K/cmm 03/21/2020 8:00 EDT [facility] MPV 12.3 9.5 - 12.7 fl 03/21/2020 8:00 T [facility] Blood VENOUS BLOOD / Unknown Venipuncture / Unknown 03/21/2020 6:15 EDT 03/21/2020 7:47 EDT Neal Moscoso MD HEMATOLOGY & PF4 ORDERABLES Final Result [facility] [address] [place] [address] * (ABNORMAL) COMPLETE BLOOD COUNT (03/20/2020 7:31 EDT) WBC 4.74 4.00 - 12.40 K/cmm 03/20/2020 8:22 T [facility] RBC 3.66(L) 3.86 - 5.04 M/cmm 03/20/2020 8:22 EDT [facility] Hemoglobin 11.7 11.6 - 15.2 gm/dL 03/20/2020 8:22 EDT [facility] HCT 34.5(L) 34.9 - 44.4 % 03/20/2020 8:22 T [facility] MCV 94 81 - 98 fl 03/20/2020 8:22 EDT [facility] MCH 32.0 26.7 - 33.3 pg 03/20/2020 8:22 EDT [facility] MCHC 33.9 32.1 - 35.9 gm/dL 03/20/2020 8:22 EDT [facility] RDW-CV 12.7 <14.7 % 03/20/2020 8:22 EDT [facility] RDW-SD 44.4 <50.4 fl 03/20/2020 8:22 EDT [facility] PLT 202 141 - 377 K/cmm 03/20/2020 8:22 EDT [facility] MPV 11.9 9.5 - 12.7 fl 03/20/2020 8:22 EDT [facility] Blood VENOUS BLOOD / Unknown Venipuncture / Unknown 03/20/2020 7:31 EDT 03/20/2020 8:13 EDT Neal Moscoso MD HEMATOLOGY & PF4 ORDERABLES Final Result Performing Organization Address City/[facility]/ZIP Co de Phone Number [facility] [address] [place] [address] * (ABNORMAL) ELECTROLYTES (03/20/2020 7:31 EDT) Sodium 131(L) 136 - 145 mEq/L 03/20/2020 8:41 EDT [facility] Potassium 4.9 3.5 - 5.0 mEq/L 03/20/2020 8:41 EDT [facility] Chloride 100 96 - 110 mEq/L 03/20/2020 8:41 EDT [facility] CO2 Total 26 22 - 32 mEq/L 03/20/2020 8:41 EDT [facility] Blood VENOUS BLOOD / Unknown Venipuncture / Unknown 03/20/2020 7:31 EDT 03/20/2020 8:13 EDT us Neal Mocsoso MD CHEMISTRY & BLOOD GAS ORDER [place] Final Result [facility] [address] [place] [address] * CREATININE (03/20/2020 7:31 EDT) Creatinine 0.64 0.52 - 1.04 mg/dL 03/20/2020 8:41 EDT [facility] eGFR 103 >60 mL/min/1.7 3m2 03/20/2020 8:41 [facility] Comment:eGFR calculated mickey redd CKD-EPI equation for non- Americans. Multiply eGFR by 1.16 for patients. Blood VENOUS BLOOD / Unknown Venipuncture / Unknown 03/20/2020 7:31 EDT 03/20/2020 8:13 EDT Neal Moscoso MD CHEMISTRY & BLOOD GAS ORDER [place] Final Result [facility] [address] [place] [address] * (ABNORMAL) COMPLETE BLOOD COUNT (03/19/2020 8:17 EDT) WBC 5.40 4.00 - 12.40 K/cmm 03/19/2020 9:04 [facility] RBC 3.76(L) 3.86 - 5.04 M/cmm 03/19/2020 9:04 [facility] Hemoglobin 12.1 11.6 - 15.2 gm/dL 03/19/2020 9:04 [facility] HCT 34.8(L) 34.9 - 44.4 % 03/19/2020 9:04 [facility] MCV 93 81 - 98 fl 03/19/2020 9:04 [facility] MCH 32.2 26.7 - 33.3 pg 03/19/2020 9:04 [facility] MCHC 34.8 32.1 - 35.9 gm/dL 03/19/2020 9:04 [facility] RDW-CV 12.9 <14.7 % 03/19/2020 9:04 [facility] RDW-SD 43.7 <50.4 fl 03/19/2020 9:04 [facility] PLT 204 141 - 377 K/cmm 03/19/2020 9:04 [facility] MPV 12.1 9.5 - 12.7 fl 03/19/2020 9:04 EDT [facility] Blood VENOUS BLOOD / Unknown Venipuncture / Unknown 03/19/2020 8:17 EDT 03/19/2020 8:55 EDT us Neal Moscoso MD HEMATOLOGY & PF4 ORDERABLES Final Result Performing Organization Address [facility]/ZIP Co de Phone Number [facility] [address] [place] [address] * (ABNORMAL) ELECTROLYTES (03/19/2020 8:17 EDT) Sodium 133(L) 136 - 145 mEq/L 03/19/2020 10:17 EDT [facility] Potassium 5.4(H) 3.5 - 5.0 mEq/L 03/19/2020 10:17 T [facility] Chloride 102 96 - 110 mEq/L 03/19/2020 10:17 EDT [facility] CO2 Total 23 22 - 32 mEq/L 03/19/2020 10:17 EDT [facility] Blood VENOUS BLOOD / Unknown Venipuncture / Unknown 03/19/2020 8:17 EDT 03/19/2020 8:55 EDT us Neal Moscoso MD CHEMISTRY & BLOOD GAS ORDER [place] Final Result Performing Organization Address [facility] Co de Phone Number [facility] [address] [place] [address] * CREATININE (03/19/2020 8:17 EDT) Creatinine 0.77 0.52 - 1.04 mg/dL 03/19/2020 10:17 T [facility] eGFR 89 >60 mL/min/1.7 3m2 03/19/2020 10:17 T [facility] Comment:eGFR calculated mickey redd CKD-EPI equation for non- Americans. Multiply eGFR by 1.16 for patients. Blood VENOUS BLOOD / Unknown Venipuncture / Unknown 03/19/2020 8:17 EDT 03/19/2020 8:55 EDT Martha Esparza MD CHEMISTRY & BLOOD GAS ORDER [place] Final Result Performing Organization Address [facility] Co de Phone Number [facility] [address] [place] [address] * HEPARIN LEVEL - LOW MOLECULAR WEIGHT HEPARIN (03/19/2020 8:17 EDT) [facility] Heparin Level - LMWH 0.46 See comment below IU/mL 03/19/2020 9:14 EDT [facility] Comment: Therapeutic Heparin Range:(twice-a-day dosing, peak sample drawn 4 hours post subcutaneous injection) for treatment of venous thromboembolism: Adults and children: 0.5 - 1.1 IU/mL : 0.5 - 1.0 IU/mL ?? Therapeutic Heparin Range:(once-a-day dosing, peak sample drawn 4 hours post subcutaneous injection) for treatment of venous thromboembolism: 1.0 - 2.0 IU/mL. Results will be overestimated in the prescence of direct Xa inhibitors (rivaroxaban, apixaban, edoxaban) or pentasaccharides such as fondparinux. Exogenous ATIII is NOT supplied in this assay. For unexpected or persistently low levels, consider measuring the patient's ATIII level. Blood VENOUS BLOOD / Unknown Venipuncture / Unknown 03/19/2020 8:17 EDT 03/19/2020 8:55 EDT Martha Esparza MD HEMATOLOGY & PF4 ORDERABLES Final Result Performing Organization Address [facility] Co de Phone Number [facility] [address] [place] [address] * (ABNORMAL) BUN (03/18/2020 12:42 EDT) Pathologist [facility] BUN 42(H) 10 - 26 mg/dL 03/18/2020 15:41 EDT [facility] Blood VENOUS BLOOD / Unknown Venipuncture / Unknown 03/18/2020 12:42 EDT 03/18/2020 12:49 EDT us Martha Esparza MD CHEMISTRY & BLOOD GAS ORDER [place] Final Result Performing Organization Address City/[facility]/ZIP Co de Phone Number [facility] [place] [address] * (ABNORMAL) CREATININE (03/18/2020 12:42 EDT) Creatinine 1.69(H) 0.52 - 1.04 mg/dL 03/18/2020 13:42 EDT [facility] eGFR 34(L) >60 mL/min/1.7 3m2 03/18/2020 13:42 EDT [facility] Comment:eGFR calculated mickey redd CKD-EPI equation for non- Americans. Multiply eGFR by 1.16 for patients. Blood VENOUS BLOOD / Unknown Venipuncture / Unknown 03/18/2020 12:42 EDT 03/18/2020 12:49 EDT Jaden Rutherford MD CHEMISTRY & BLOOD GAS O RDERABLES Final Result Performing Organization Address City/[facility]/ZIP Co de Phone Number [facility] [place] [address] * HEPARIN LEVEL - LOW MOLECULAR WEIGHT HEPARIN (03/18/2020 12:42 EDT) Heparin Level - LMWH 1.92 See comment below IU/mL 03/18/2020 14:22 EDT [facility] Comment: Therapeutic Heparin Range:(twice-a-day dosing, peak sample drawn 4 hours post subcutaneous injection) for treatment of venous thromboembolism: Adults and children: 0.5 - 1.1 IU/mL : 0.5 - 1.0 IU/mL ?? Therapeutic Heparin Range:(once-a-day dosing, peak sample drawn 4 hours post subcutaneous injection) for treatment of venous thromboembolism: 1.0 - 2.0 IU/mL. Results will be overestimated in the prescence of direct Xa inhibitors (rivaroxaban, apixaban, edoxaban) or pentasaccharides such as fondparinux. Exogenous ATIII is NOT supplied in this assay. For unexpected or persistently low levels, consider measuring the patient's ATIII level. Blood VENOUS BLOOD / Unknown Venipuncture / Unknown 03/18/2020 12:42 EDT 03/18/2020 12:49 EDT us Jaden Rutherford MD HEMATOLOGY & PF4 ORDERA BLES Final Result [facility] [address] [place] [address] * COMPLETE BLOOD COUNT (03/17/2020 5:49 EDT) WBC 6.49 4.00 - 12.40 K/cmm 03/17/2020 7:59 EDT [facility] RBC 4.02 3.86 - 5.04 M/cmm 03/17/2020 7:59 [facility] Hemoglobin 12.7 11.6 - 15.2 gm/dL 03/17/2020 7:59 [facility] HCT 37.5 34.9 - 44.4 % 03/17/2020 7:59 [facility] MCV 93 81 - 98 fl 03/17/2020 7:59 T [facility] MCH 31.6 26.7 - 33.3 pg 03/17/2020 7:59 [facility] MCHC 33.9 32.1 - 35.9 gm/dL 03/17/2020 7:59 [facility] RDW-CV 12.8 <14.7 % 03/17/2020 7:59 [facility] RDW-SD 43.9 <50.4 fl 03/17/2020 7:59 [facility] PLT 221 141 - 377 K/cmm 03/17/2020 7:59 [facility] MPV 12.2 9.5 - 12.7 fl 03/17/2020 7:59 [facility] Blood VENOUS BLOOD / Unknown Venipuncture / Unknown 03/17/2020 5:49 EDT 03/17/2020 7:48 EDT Maria Victoria Hernandez MD HEMATOLOGY & PF4 ORDERA BLES Final Result Performing Organization Address [facility] Co de Phone Number [facility] [address] [place] [address] * (ABNORMAL) CREATININE (03/17/2020 5:49 EDT) Creatinine 1.11(H) 0.52 - 1.04 mg/dL 03/17/2020 8:27 EDT [facility] eGFR 57(L) >60 mL/min/1.7 3m2 03/17/2020 8:27 EDT [facility] Comment:eGFR calculated mickey redd CKD-EPI equation for non- Americans. Multiply eGFR by 1.16 for patients. Blood VENOUS BLOOD / Unknown Venipuncture / Unknown 03/17/2020 5:49 EDT 03/17/2020 7:48 EDT Maria Victoria Hernandez MD CHEMISTRY & BLOOD GAS O RDERABLES Final Result Performing Organization Address [facility] Co de Phone Number [facility] [address] [place] [address] * (ABNORMAL) ELECTROLYTES (03/17/2020 5:49 EDT) Sodium 133(L) 136 - 145 mEq/L 03/17/2020 8:27 EDT [facility] Potassium 4.9 3.5 - 5.0 mEq/L 03/17/2020 8:27 EDT [facility] Chloride 98 96 - 110 mEq/L 03/17/2020 8:27 EDT [facility] CO2 Total 24 22 - 32 mEq/L 03/17/2020 8:27 EDT [facility] Blood VENOUS BLOOD / Unknown Venipuncture / Unknown 03/17/2020 5:49 EDT 03/17/2020 7:48 EDT Maria Victoria Hernandez MD CHEMISTRY & BLOOD GAS O RDERABLES Final Result Performing Organization Address [facility]/ZIP Co de Phone Number [facility] [address] [place] [address] * HEPARIN LEVEL - LOW MOLECULAR WEIGHT HEPARIN (03/10/2020 12:27 EDT) [facility] Heparin Level - LMWH 1.06 See comment below IU/mL 03/10/2020 14:23 EDT [facility] Comment: Therapeutic Heparin Range:(twice-a-day dosing, peak sample drawn 4 hours post subcutaneous injection) for treatment of venous thromboembolism: Adults and children: 0.5 - 1.1 IU/mL [facility]: 0.5 - 1.0 IU/mL ?? Therapeutic Heparin Range:(once-a-day dosing, peak sample drawn 4 hours post subcutaneous injection) for treatment of venous thromboembolism: 1.0 - 2.0 IU/mL. Results will be overestimated in the prescence of direct Xa inhibitors (rivaroxaban, apixaban, edoxaban) or pentasaccharides such as fondparinux. Exogenous ATIII is NOT supplied in this assay. For unexpected or persistently low levels, consider measuring the patient's ATIII level. Blood VENOUS BLOOD / Unknown Venipuncture / Unknown 03/10/2020 12:27 EDT 03/10/2020 12:31 EDT us Jaden Rutherford MD HEMATOLOGY & PF4 ORDERA BLES Final Result Performing Organization Address City/[facility]/ZIP Co de Phone Number [facility] [address] [place] [address] * (ABNORMAL) POCT GLUCOSE, INTERFACED (03/09/2020 20:16 EDT) Glucose, POC 103(H) 70 - 100 mg/dL 03/09/2020 20:22 EDT [facility] attendant sales ID [id number] 03/09/2020 20:22 EDT [facility] HN LAB POC COMMENT (GLUCOSE) Test Performed by Nursing Services 03/09/2020 20:22 EDT [facility] Blood CAPILLARY BLOOD / Unknown 03/09/2020 20:16 EDT 03/09/2020 20:22 EDT us Jaden Rutherford MD POINT OF CARE TEST ORDE LILIANASAQIB Final Result [facility] [address] [place] [address] * (ABNORMAL) POCT GLUCOSE, INTERFACED (03/09/2020 17:10 EDT) Glucose, POC 114(H) 70 - 100 mg/dL 03/09/2020 17:11 EDT [facility] attendant sales ID [id number] 03/09/2020 17:11 EDT [facility] HN LAB POC COMMENT (GLUCOSE) Test Performed by Nursing Services 03/09/2020 17:11 EDT [facility] Blood CAPILLARY BLOOD / Unknown 03/09/2020 17:10 EDT 03/09/2020 17:11 EDT us Jaden Rutherford MD POINT OF CARE TEST ORDE TAY Final Result [facility] [address] [place] [address] * (ABNORMAL) POCT GLUCOSE, INTERFACED (03/09/2020 11:32 EDT) Glucose, POC 111(H) 70 - 100 mg/dL 03/09/2020 11:33 EDT [facility] attendant sales ID [id number] 03/09/2020 11:33 EDT [facility] HN LAB POC COMMENT (GLUCOSE) Test Performed by Nursing Services 03/09/2020 11:33 EDT [facility] Blood CAPILLARY BLOOD / Unknown 03/09/2020 11:32 EDT 03/09/2020 11:33 EDT us Jaden Rutherford MD POINT OF CARE TEST ORDE RABLES Final Result [facility] [address] [place] [address] * (ABNORMAL) POCT GLUCOSE, INTERFACED (03/09/2020 6:43 EDT) Glucose, POC 106(H) 70 - 100 mg/dL 03/09/2020 6:56 EDT [facility] attendant sales ID [id number] 03/09/2020 6:56 EDT [facility] HN LAB POC COMMENT (GLUCOSE) Test Performed by Nursing Services 03/09/2020 6:56 EDT [facility] Blood CAPILLARY BLOOD / Unknown 03/09/2020 6:43 EDT 03/09/2020 6:56 EDT us Jaden Rutherford MD POINT OF CARE TEST ORDE TAY Final Result Performing Organization Address City/[facility]/ZIP Co de Phone Number [facility] [address] [place] [address] * (ABNORMAL) POCT GLUCOSE, INTERFACED (03/08/2020 12:00 EDT) Glucose, POC 126(H) 70 - 100 mg/dL 03/08/2020 12:05 EDT [facility] attendant sales ID [id number] 03/08/2020 12:05 EDT [facility] HN LAB POC COMMENT (GLUCOSE) Test Performed by Nursing Services 03/08/2020 12:05 EDT [facility] Blood CAPILLARY BLOOD / Unknown 03/08/2020 12:00 EDT 03/08/2020 12:05 EDT us Jaden Rutherford MD POINT OF CARE TEST ORDElfego CROSS Final Result [facility] [address] [place] [address] * CT HEAD WO CONTRAST (03/08/2020 11:53 EDT) Anatomical Region Laterality Modality Head Computed Tomogra phy 03/08/2020 12:3 0 EDT Impressions 03/08/2020 12:30 EDT No new intracranial abnormality. Expected involution of left temporal hemorrhage with evolving encephalomalacia. Narrative 03/08/2020 12:30 EDT EXAM: CT HEAD WO CONTRAST HISTORY: Headache, intracranial hemorrhage suspected; Left ICH, increased QUINONES in the setting of anticoagulation ?? TECHNIQUE: CT head without contrast. Structured report code: [id number] COMPARISON: None. FINDINGS: PARENCHYMA: Expected involution of left temporal lobe hemorrhage with residual evolving encephalomalacia. No evidence of acute infarction. No new parenchymal hemorrhage. Minimal rightward midline shift. EXTRA-AXIAL SPACES: Small subdural collection overlying the left frontal lobe appears minimally increased. No extra-axial mass. VENTRICULAR SYSTEM: Normal size and configuration. No obstructive hydrocephalus. VESSELS: Limited evaluation without IV contrast. Normal density in the dural venous sinuses. BONES: No concerning lesions. No evidence of fracture. Status post left craniectomy. ORBITS: No significant abnormality. PARANASAL SINUSES/MASTOID AIR CELLS: Predominantly clear. EXTRACRANIAL SOFT TISSUES: Unremarkable. Procedure Note Jose Enriquez MD - 03/08/2020 EXAM: CT HEAD WO CONTRAST HISTORY: Headache, intracranial hemorrhage suspected; Left ICH, increasedHA in the setting of anticoagulation TECHNIQUE: CT head without contrast. Structured report code: [id number] COMPARISON: None. FINDINGS: PARENCHYMA: Expected involution of left temporal lobe hemorrhage with residualevolving encephalomalacia. No evidence of acute infarction. No newparenchymal hemorrhage. Minimal rightward midline shift. EXTRA-AXIAL SPACES: Small subdural collection overlying the left frontal lobe appearsminimally increased. No extra-axial mass. VENTRICULAR SYSTEM: Normal size and configuration. No obstructive hydrocephalus. VESSELS: Limited evaluation without IV contrast. Normal density in the dural venoussinuses. BONES: No concerning lesions. No evidence of fracture. Status post leftcraniectomy. ORBITS: No significant abnormality. PARANASAL SINUSES/MASTOID AIR CELLS: Predominantly clear. EXTRACRANIAL SOFT TISSUES: Unremarkable. IMPRESSION No new intracranial abnormality. Expected involution of left temporalhemorrhage with evolving encephalomalacia. us Jaden Rutherford MD IM CT ORDERABLES Final Result * (ABNORMAL) POCT GLUCOSE, INTERFACED (03/08/2020 7:16 EDT) Glucose, POC 108(H) 70 - 100 mg/dL 03/08/2020 7:17 EDT [facility] attendant sales ID [id number] 03/08/2020 7:17 EDT [facility] HN LAB POC COMMENT (GLUCOSE) Test Performed by Nursing Services 03/08/2020 7:17 EDT [facility] Blood CAPILLARY BLOOD / Unknown 03/08/2020 7:16 EDT 03/08/2020 7:17 EDT Jaden Rutherford MD POINT OF CARE TEST ORDElfego CROSS Final Result Performing Organization Address [facility] Co de Phone Number [facility] [address] [place] [address] * HEPARIN LEVEL - LOW MOLECULAR WEIGHT HEPARIN (03/07/2020 14:01 EDT) Heparin Level - LMWH 0.24 See comment below IU/mL 03/07/2020 15:50 EDT [facility] Comment: Therapeutic Heparin Range:(twice-a-day dosing, peak sample drawn 4 hours post subcutaneous injection) for treatment of venous thromboembolism: Adults and children: 0.5 - 1.1 IU/mL : 0.5 - 1.0 IU/mL ?? Therapeutic Heparin Range:(once-a-day dosing, peak sample drawn 4 hours post subcutaneous injection) for treatment of venous thromboembolism: 1.0 - 2.0 IU/mL. Results will be overestimated in the prescence of direct Xa inhibitors (rivaroxaban, apixaban, edoxaban) or pentasaccharides such as fondparinux. Exogenous ATIII is NOT supplied in this assay. For unexpected or persistently low levels, consider measuring the patient's ATIII level. Blood VENOUS BLOOD / Unknown Venipuncture / Unknown 03/07/2020 14:01 EDT 03/07/2020 14:05 EDT us Jaden Rutherford MD HEMATOLOGY & PF4 ORDERA BLES Final Result Performing Organization Address [facility] Co de Phone Number [facility] [address] [place] [address] * (ABNORMAL) PHOSPHORUS (03/07/2020 6:50 EDT) Phosphorus 4.6(H) 2.5 - 4.5 mg/dL 03/07/2020 8:12 EDT [facility] Blood VENOUS BLOOD / Unknown Venipuncture / Unknown 03/07/2020 6:50 EDT 03/07/2020 7:41 EDT us Jaden Rutherford MD CHEMISTRY & BLOOD GAS O RDERABLES Final Result [facility] [address] [place] [address] * PREALBUMIN (03/07/2020 6:50 EDT) Prealbumin 38 20 - 40 mg/dL 03/07/2020 10:36 EDT [facility] Blood VENOUS BLOOD / Unknown Venipuncture / Unknown 03/07/2020 6:50 EDT 03/07/2020 7:41 EDT us Jaden Rutherford MD CHEMISTRY & BLOOD GAS O RDERABLES Final Result Performing Organization Address [facility] Co de Phone Number [facility] [address] [place] [address] * CREATININE (03/07/2020 6:50 EDT) Creatinine 0.57 0.52 - 1.04 mg/dL 03/07/2020 8:12 EDT [facility] eGFR 107 >60 mL/min/1.7 3m2 03/07/2020 8:12 EDT [facility] Comment:eGFR calculated mickey redd CKD-EPI equation for non- Americans. Multiply eGFR by 1.16 for patients. Blood VENOUS BLOOD / Unknown Venipuncture / Unknown 03/07/2020 6:50 EDT 03/07/2020 7:41 EDT us Jaden Rutherford MD CHEMISTRY & BLOOD GAS O RDERABLES Final Result [facility] [address] [place] [address] * BUN (03/07/2020 6:50 EDT) BUN 26 10 - 26 mg/dL 03/07/2020 8:12 EDT [facility] Blood VENOUS BLOOD / Unknown Venipuncture / Unknown 03/07/2020 6:50 EDT 03/07/2020 7:41 EDT Jaden Rutherford MD CHEMISTRY & BLOOD GAS O RDERABLES Final Result Performing Organization Address [facility]/ZIP Co de Phone Number [facility] [address] [place] [address] * (ABNORMAL) ELECTROLYTES (03/07/2020 6:50 EDT) [facility] Sodium 134(L) 136 - 145 mEq/L 03/07/2020 8:12 EDT [facility] Potassium 5.1(H) 3.5 - 5.0 mEq/L 03/07/2020 8:12 EDT [facility] Chloride 102 96 - 110 mEq/L 03/07/2020 8:12 EDT [facility] CO2 Total 24 22 - 32 mEq/L 03/07/2020 8:12 EDT [facility] Blood VENOUS BLOOD / Unknown Venipuncture / Unknown 03/07/2020 6:50 EDT 03/07/2020 7:41 EDT Jaden Rutherford MD CHEMISTRY & BLOOD GAS O RDERABLES Final Result Performing Organization Address [facility]/ZIP Co de Phone Number [facility] [address] [place] [address] * HEPARIN LEVEL - LOW MOLECULAR WEIGHT HEPARIN (03/03/2020 12:57 EDT) Pathologist [facility] [place] Heparin Level - LMWH 1.23 See comment below IU/mL 03/03/2020 14:48 EDT [facility] Comment: Therapeutic Heparin Range:(twice-a-day dosing, peak sample drawn 4 hours post subcutaneous injection) for treatment of venous thromboembolism: Adults and children: 0.5 - 1.1 IU/mL [facility]: 0.5 - 1.0 IU/mL ?? Therapeutic Heparin Range:(once-a-day dosing, peak sample drawn 4 hours post subcutaneous injection) for treatment of venous thromboembolism: 1.0 - 2.0 IU/mL. Results will be overestimated in the prescence of direct Xa inhibitors (rivaroxaban, apixaban, edoxaban) or pentasaccharides such as fondparinux. Exogenous ATIII is NOT supplied in this assay. For unexpected or persistently low levels, consider measuring the patient's ATIII level. Blood VENOUS BLOOD / Unknown Venipuncture / Unknown 03/03/2020 12:57 EDT 03/03/2020 13:03 EDT us Jaden Rutherford MD HEMATOLOGY & PF4 ORDERA BLES Final Result [facility] [address] [place] [address] documented in this encounter Visit Diagnoses Diagnosis Left-sided nontraumatic intracerebral hemorrhage (HCC-CMS)- Primary Cerebral venous thrombosis Cerebral thrombosis without mention of cerebral infarction Nontraumatic hemorrhage of left cerebral hemisphere (HCC-CMS) Essential hypertension Unspecified essential hypertension Acute kidney injury (HCC-CMS) Acute kidney failure, unspecified Cerebral venous thrombosis Cerebral thrombosis without mention of cerebral infarction * Rehab Individualized Plan of Care - Jaden Rutherford MD - 03/04/2020 0933 EDT INDIVIDUALIZED OVERALL PLAN OF CARE I have reviewed this patient's pre-admission screening, post-admission evaluation, assessments fromthe involved therapy disciplines including OT, PT and ANESTHESIOLOGY PHYSICIAN ASSISTANT, and all other pertinent assessments to date in the development of this overall plan of care for YNES WHITE Reason for admission is Principal Problem: Left-sided nontraumatic intracerebral hemorrhage (HCC-CMS) Active Problems: Cerebral venous thrombosis The medical prognosis for this patient is good with continued supportive treatment including daily physician monitoring for all above medical problems. I anticipate that this patient will achieve a level of function such that she will complete functional mobility with supervision, and self cares with supervision at the time of discharge. The estimated length of stay is 3 weeks with planned discharge to the home setting. Based on her current impairments, functional status, complicating conditions, and other contributing factors, this patient continues to require a multidisciplinary team for three hours of OT, PT and ANESTHESIOLOGY PHYSICIAN ASSISTANT daily, at least 5 days a week, to achieve therapy and team goals. With this level of therapy, this patient can reasonably be expected to make measurable improvement as a result of the rehabilitation treatment. Time is stated as an average and may be varied day to day based on patient's individual daily needs. Jaden Rutherford MD documented in this encounter Administered Medications Inactive Administered Medications - up to 3 most recent administrations Medication Order MAR Action Action Date Dose Rate Site acetaminophen (TYLENOL) tablet 1,000 mg 1,000 mg, oral, EVERY 6 HOURS, First dose (after last modification) on Sat03/02/20 at 1500, Until Discontinued, Routine Given 03/03/2020 8:50 EDT 1,000 mg Given 03/03/2020 3:00 EDT 1,000 mg Given 03/02/2020 20:23 EDT 1,000 mg acetaminophen (TYLENOL) tablet 650 mg 650 mg, oral, EVERY 4 HOURS PRN, Starting on Tiffanie 03/03/20 at 1300, Until Tiffanie 03/31/20 at 1501, Pain, Routine Given 03/31/2020 8:40 EDT 650 mg Given 03/31/2020 2:12 EDT 650 mg Given 03/30/2020 22:15 EDT 650 mg amino acids-protein hydrolysate (PRO SOURCE NOCARB) packet 30 mL 30 mL, feeding tube, 2 TIMES DAILY, First dose (after last modification) on 03/05/20 at 2100, Until Discontinued, Routine Given 03/09/2020 20:56 EDT 30 mL Given 03/06/2020 21:13 EDT 30 mL Given 03/05/2020 20:08 EDT 30 mL amino acids-protein hydrolysate (PRO SOURCE NOCARB) packet 60 mL 60 mL, feeding tube, 2 TIMES DAILY, First dose (after last modification) on 03/02/20 at 2100, Until Discontinued, Routine Given 03/05/2020 8:07 EDT 60 mL Given 03/04/2020 21:08 EDT 60 mL Given 03/04/2020 8:14 EDT 60 mL aspirin chewable tablet 81 mg 81 mg, oral, DAILY, First dose (after last modification) on Sat03/03/20 at 0800, Until Discontinued, Routine Given 03/31/2020 8:32 EDT 81 mg Given 03/30/2020 8:33 EDT 81 mg Given 03/29/2020 8:30 EDT 81 mg bisacodyL (DULCOLAX) suppository 10 mg 10 mg, rectal, EVERY 48 HOURS PRN, Starting on Sat03/02/20 at 1330, Until Sat03/30/20 at 0812, Constipation, Routine Given 03/14/2020 9:57 EDT 10 mg calcium carbonate (TUMS) 200 mg calcium (500 mg) per chewable tablet tablet,chewable 1 Tab 1 Tablet, oral, 4 TIMES DAILY PRN, Starting on Sat03/02/20 at 1330, Until Sat03/31/20 at 1501, Heartburn, Routine Given 03/08/2020 2:56 EDT 1 Tablet Given 03/04/2020 17:01 EDT 1 Tablet docusate (COLACE) liquid 100 mg 100 mg, oral, 2 TIMES DAILY, First dose (after last modification) on Sat03/02/20 at 2100, Until Discontinued, Routine Given 03/06/2020 21:13 EDT 100 mg Given 03/06/2020 8:34 EDT 100 mg Given 03/05/2020 20:08 EDT 100 mg docusate (COLACE) liquid 100 mg 100 mg, oral, 2 TIMES DAILY PRN, Starting on Sat03/09/20 at 0915, Until Sat03/17/20 at 1118, Constipation, Routine Given 03/09/2020 20:41 EDT 100 mg Given 03/09/2020 18:00 EDT 100 mg docusate sodium (COLACE) capsule 100 mg 100 mg, oral, 2 TIMES DAILY PRN, Starting on Sat03/17/20 at 1117, Until Sat03/31/20 at 1501, Constipation, Routine Given 03/29/2020 18:44 EDT 100 mg Given 03/27/2020 9:09 EDT 100 mg Given 03/26/2020 8:31 EDT 100 mg enoxaparin (LOVENOX) injection 50 mg 50 mg, subcutaneous, EVERY 12 HOURS, First dose (after last modification) on Sat03/26/20 at 2000, Until Discontinued, Routine Given 03/30/2020 20:27 EDT 50 mg Given 03/30/2020 8:33 EDT 50 mg Given 03/29/2020 20:59 EDT 50 mg enoxaparin (LOVENOX) injection 60 mg 60 mg, subcutaneous, EVERY 12 HOURS, First dose (after last modification) on Sat03/21/20 at 2000, Until Discontinued, Routine Given 03/26/2020 8:21 EDT 60 mg Given 03/25/2020 20:20 EDT 60 mg Given 03/25/2020 8:51 EDT 60 mg enoxaparin (LOVENOX) injection 70 mg 70 mg, subcutaneous, EVERY 12 HOURS, First dose (after last modification) on Sat03/04/20 at 0800, Until Discontinued, Routine Given 03/07/2020 9:58 EDT 70 mg Given 03/06/2020 21:13 EDT 70 mg Given 03/06/2020 8:35 EDT 70 mg enoxaparin (LOVENOX) injection 80 mg 80 mg, subcutaneous, EVERY 12 HOURS, First dose (after last modification) on Sat03/07/20 at 2000, Until Discontinued, Routine Given 03/18/2020 8:37 EDT 80 mg Given 03/17/2020 20:38 EDT 80 mg Given 03/17/2020 8:37 EDT 80 mg enoxaparin (LOVENOX) injection 80 mg 80 mg, subcutaneous, EVERY 12 HOURS, First dose on Sat03/19/20 at 1415, Until Discontinued, Routine Given 03/21/2020 8:30 EDT 80 mg Given 03/20/2020 20:13 EDT 80 mg Given 03/20/2020 9:20 EDT 80 mg enoxaparin (LOVENOX) injection 90 mg 90 mg (rounded from 89 mg = 1 mg/kg ? 89 kg), subcutaneous, EVERY 12 HOURS, First dose (after last modification) on Sat03/02/20 at 2000, Until Discontinued, Routine Given 03/03/2020 20:30 EDT 90 mg Given 03/03/2020 8:53 EDT 90 mg Given 03/02/2020 20:24 EDT 90 mg gadobutroL (GADAVIST PFS) solution solution 1-15 mmol 1-15 mmol (1-15 mL), intravenous, Once in imaging, 1 dose, Starting on Sat03/23/20 at 1839, Until Sat03/23/20 at 1839, Routine, Imaging Protocol Orders Given 03/23/2020 18:39 EDT 8.3 mmol HYDROmorphone (DILAUDID) tablet 2 mg 2 mg, oral, NOW X1, 1 dose, On Tiffanie 03/03/20 at 2000, Pain, STAT Given 03/03/2020 19:54 EDT 2 mg HYDROmorphone (DILAUDID) tablet 2 mg 2 mg, oral, EVERY 4 HOURS PRN, Starting on Sat03/21/20 at 0957, Until Sat03/30/20 at 0812, Pain, Routine Given 03/27/2020 18:22 EDT 2 mg Given 03/27/2020 13:54 EDT 2 mg Given 03/26/2020 13:00 EDT 2 mg HYDROmorphone (DILAUDID) tablet 2-4 mg 2-4 mg, oral, EVERY 4 HOURS PRN, Starting on Sat03/02/20 at 1330, Until Sat03/21/20 at 0958, Pain, for pain not controlled by acetaminophen; 2 for pain <5, 4 for pain>5, Routine Given 03/19/2020 21:54 EDT 4 mg Given 03/19/2020 17:35 EDT 2 mg Given 03/19/2020 13:21 EDT 2 mg lisinopriL (PRINIVIL) tablet 20 mg 20 mg, oral, DAILY, First dose (after last modification) on Sat03/03/20 at 0800, Until Discontinued, Routine Given 03/16/2020 7:43 EDT 20 mg Given 03/15/2020 8:36 EDT 20 mg Given 03/14/2020 8:17 EDT 20 mg melatonin tablet 3 mg 3 mg, oral, AT BEDTIME, First dose (after last modification) on Sat03/02/20 at 2100, Until Discontinued, Routine Given 03/24/2020 20:55 EDT 3 mg Given 03/23/2020 20:22 EDT 3 mg Given 03/22/2020 20:20 EDT 3 mg melatonin tablet 5 mg 5 mg, oral, AT BEDTIME, First dose (after last modification) on Sat03/25/20 at 2100, Until Discontinued, Routine Given 03/30/2020 20:27 EDT 5 mg Given 03/29/2020 21:04 EDT 5 mg Given 03/28/2020 21:00 EDT 5 mg metoprolol (LOPRESSOR) tablet 25 mg 25 mg, oral, 2 TIMES DAILY, First dose (after last modification) on Sat03/02/20 at 2100, Until Discontinued, Routine Given 03/15/2020 20:02 EDT 25 mg Given 03/15/2020 8:36 EDT 25 mg Given 03/14/2020 20:44 EDT 25 mg multivitamin (FLINTSTONES) chewable tablet 1 Tab 1 Tablet, oral, DAILY, First dose on Sat03/09/20 at 0930, Until Discontinued, Routine Given 03/29/2020 8:30 EDT 1 Tablet Given 03/28/2020 8:22 EDT 1 Tablet Given 03/27/2020 9:09 EDT 1 Tablet Multivitamins with minerals + ferrous gluconate (CENTRUM) oral solution 15 mL 15 mL, feeding tube, DAILY, First dose (after last modification) on Sat03/03/20 at 0800, Until Discontinued, Routine Given 03/05/2020 8:08 EDT 15 mL Given 03/04/2020 8:14 EDT 15 mL Given 03/03/2020 8:53 EDT 15 mL nicotine (NICODERM CQ) 7 mg/24 hr patch 1 Patch 1 Patch, transdermal, EVERY 24 HOURS, First dose (after last modification) on Sat03/03/20 at 0900, Until Discontinued, Routine Patch Applied 03/21/2020 8:31 EDT 1 Patch Left Shoulder Patch Applied 03/20/2020 9:20 EDT 1 Patch Ri ght Arm Patch Applied 03/19/2020 8:59 EDT 1 Patch Le ft Arm nutren 1.5 liquid 240 mL 240 mL, per g tube, 3 TIMES DAILY WITH MEALS, First dose on Sat03/04/20 at 1200, Until Discontinued, Routine, Release Given 03/04/2020 14:20 EDT 240 mL nutren 1.5 liquid 240 mL 240 mL, per g tube, 4 TIMES DAILY AFTER MEALS AND AT BEDTIME, First dose (after last modification) on Sat03/04/20 at 1800, Until Discontinued, Routine, Release Given 03/10/2020 0:36 EDT 240 mL Given 03/09/2020 18:30 EDT 120 mL Given 03/05/2020 22:35 EDT 240 mL ondansetron (ZOFRAN-ODT) disintegrating tablet 4 mg 4 mg, oral, EVERY 4 HOURS PRN, Starting on 03/05/20 at 0831, Until 03/21/20 at 1536, Nausea, Routine Given 03/21/2020 13:29 EDT 4 mg Given 03/12/2020 3:45 EDT 4 mg Given 03/11/2020 10:11 EDT 4 mg ondansetron (ZOFRAN-ODT) disintegrating tablet 4 mg 4 mg, oral, EVERY 8 HOURS PRN, Starting on Sat03/21/20 at 1545, Until Sat03/30/20 at 0812, Nausea, Routine Given 03/24/2020 23:28 EDT 4 mg pantoprazole (PROTONIX) tablet 40 mg 40 mg, oral, DAILY, First dose (after last modification) on Tiffanie 03/03/20 at 0800, Until Discontinued, Routine Given 03/31/2020 8:32 EDT 40 mg Given 03/30/2020 8:33 EDT 40 mg Given 03/29/2020 8:30 EDT 40 mg polyethylene glycol 3350 (MIRALAX) packet 17 g 17 g, oral, DAILY PRN, Starting on Sat03/18/20 at 1521, Until Tiffanie 03/31/20 at 1501, Constipation, Routine Given 03/28/2020 8:35 EDT 17 g Given 03/27/2020 9:08 EDT 17 g Given 03/25/2020 8:50 EDT 17 g QUEtiapine (SEROQUEL) tablet 12.5 mg 12.5 mg, oral, AT BEDTIME, First dose (after last modification) on Sat03/16/20 at 2100, Until Discontinued, Routine Given 03/20/2020 20:13 EDT 12.5 mg Given 03/19/2020 20:51 EDT 12.5 mg Given 03/18/2020 21:53 EDT 12.5 mg QUEtiapine (SEROQUEL) tablet 25 mg 25 mg, oral, AT BEDTIME, First dose (after last modification) on Sat03/02/20 at 2100, Until Discontinued, Routine Given 03/03/2020 20:22 EDT 25 mg Given 03/02/2020 20:24 EDT 25 mg QUEtiapine (SEROQUEL) tablet 25 mg 25 mg, oral, AT BEDTIME, First dose (after last modification) on Sat03/08/20 at 2100, Until Discontinued, Routine Given 03/15/2020 20:02 EDT 25 mg Given 03/14/2020 20:35 EDT 25 mg Given 03/13/2020 20:00 EDT 25 mg QUEtiapine (SEROQUEL) tablet 50 mg 50 mg, oral, AT BEDTIME, First dose (after last modification) on Sat03/04/20 at 2100, Until Discontinued, Routine Given 03/07/2020 20:22 EDT 50 mg Given 03/06/2020 21:13 EDT 50 mg Given 03/05/2020 20:08 EDT 50 mg QUEtiapine (SEROQUEL) tablet 6.25 mg 6.25 mg, oral, AT BEDTIME, First dose (after last modification) on Sat03/21/20 at 2100, Until Discontinued, Routine Given 03/24/2020 20:55 EDT 6.25 mg Given 03/23/2020 20:22 EDT 6.25 mg Given 03/22/2020 20:26 EDT 6.25 mg senna (SENOKOT) tablet 1 Tab 1 Tablet, oral, 2 TIMES DAILY, First dose (after last modification) on Sat03/02/20 at 2100, Until Discontinued, Routine Given 03/06/2020 21:13 EDT 1 Tablet Given 03/06/2020 8:33 EDT 1 Tablet Given 03/05/2020 20:08 EDT 1 Tablet senna (SENOKOT) tablet 1 Tab 1 Tablet, oral, 2 TIMES DAILY PRN, Starting on Sat03/09/20 at 0915, Until Tiffanie 03/31/20 at 1501, Constipation, Routine Given 03/26/2020 8:30 EDT 1 Tablet Given 03/25/2020 20:20 EDT 1 Tablet Given 03/25/2020 8:50 EDT 1 Tablet documented in this encounter Discontinued Medications Medication Sig Discontinue Reason Start Date End Da te polyethylene glycol 3350 (MIRALAX) 17 gram packet Take 17 g by mouth daily as needed for Other. 03/30/2020 03/31/2020 aspirin chewable 81 mg tablet Take 1 Tab by mouth daily. Reorder 03/03/2020 03/31/2020 acetaminophen (TYLENOL) 325 mg tablet Take 2 Tabs by mouth every 4 hours as needed for Pain. Reorder 03/30/2020 03/31/2020 melatonin 5 mg tablet Take 1 Tab by mouth at bedtime. Reorder 03/30/2020 03/31/2020 QUEtiapine (SEROQUEL) 50 mg tablet Take 100 mg by mouth at bedtime. 11/08/2019 03/31/2020 propRANolol (INDERAL) 10 mg tablet TK 1 T PO ON AN EMPTY STOMACH Q 8 H PRN 09/16/2019 03/31/2020 Prazosin (MINIPRESS) 1 mg capsule TK ONE C PO HS 08/14/2019 03/31/2020 buPROPion (WELLBUTRIN XL) 300 mg XL tablet TK 1 T PO QAM 11/08/2019 03/31/2020 acetaminophen (TYLENOL EXTRA STRENGTH) 500 mg tablet 2 tab(s) orally every 6 hours 03/31/2020 estradiol-norethindrone (COMBIPATCH) 0.05-0.14 mg/24 hr patch 1 PATCH applied topically 2 times a week 03/31/2020 omeprazole (PRILOSEC) 40 mg capsule TK ONE C PO QD 09/16/2019 03/31/2020 VITAMIN B COMPLEX-100 ORAL Take by mouth daily. 03/31/2020 folic acid (FOLVITE) 1 mg tablet Take 1 mg by mouth daily. 03/31/2020 OLANZapine (ZYPREXA) 5 mg tablet Take 5 mg by mouth daily. 03/31/2020 acetaminophen (TYLENOL) 500 mg tablet Take 2 Tabs by mouth every 6 hours. 03/02/2020 03/31/2020 calcium carbonate (TUMS) 200 mg calcium (500 mg) tablet,chewable Take 1 Tab by mouth 4 times daily as needed for Heartburn. 03/02/2020 03/31/2020 docusate (COLACE) 50 mg/5 mL liquid Take 10 mL by mouth 2 times daily. 03/02/2020 03/31/2020 enoxaparin (LOVENOX) 100 mg/mL syringe Inject 90 mg into the skin every 12 hours for 28 days. 03/02/2020 03/31/2020 guaiFENesin 200 mg tablet Take 1 Tab by mouth every 6 hours as needed for Other (wet cough). 03/02/2020 03/31/2020 lisinopriL (PRINIVIL) 20 mg tablet Take 1 Tab by mouth daily for 28 days. 03/03/2020 03/31/2020 melatonin 3 mg tablet Take 1 Tab by mouth at bedtime. 03/02/2020 03/31/2020 Multivitamins with minerals + ferrous gluconate (CENTRUM) 9 mg iron/15 mL liquid oral solution 15 mL by per g tube route daily for 28 days. 03/03/2020 03/31/2020 nicotine (NICODERM CQ) 7 mg/[address] 1 Patch onto the skin every 24 hours for 28 days. 03/03/2020 03/31/2020 ondansetron, PF, (ZOFRAN) 4 mg/2 mL solution Inject 2 mL into the vein every 4 hours as needed for Nausea. 03/02/2020 03/31/2020 pantoprazole (PROTONIX) 40 mg tablet Take 1 Tab by mouth daily for 28 days. 03/03/2020 03/31/2020 senna (SENOKOT) 8.6 mg tablet Take 1 Tab by mouth 2 times daily. 03/02/2020 03/31/2020 documented as of this encounter Active and Recently Administered Medications Times are shown in EDT. Scheduled Medication Order 03/29/2020 03/30/2020 03/31/2020 aspirin chewable tablet 81 mg 81 mg, oral, DAILY, First dose (after last modification) on Tiffanie 03/03/20 at 0800, Until Discontinued, Routine 0830 (Given - Provider: Cami Womack RN) 0833 (Given - Provider: Preethi Blank, [place]) 0832 (Given - Provider: Isamar Scruggs, [place]) enoxaparin (LOVENOX) injection 50 mg 50 mg, subcutaneous, EVERY 12 HOURS, First dose (after last modification) on 03/26/20 at 2000, Until Discontinued, Routine 0830 (Given - Provider: Cami Womack RN)2058 (Given - Provider: Blanca Llamas, [place]ALE[place]) 0833 (Given - Provider: Preethi Blank, RN)2026 (Given - Provider: Blanca Llamas, [place]ALE[place]) 0832 (Hold - Provider: Isamar Scruggs RN - Reason: Other - Comment: S/O to do do it w/education.) melatonin tablet 5 mg 5 mg, oral, AT BEDTIME, First dose (after last modification) on Sat03/25/20 at 2100, Until Discontinued, Routine 2103 (Given - Provider: Blanca Llamas, [place]ALEA) 2026 (Given - Provider: Blnaca Llamas RN) multivitamin (FLINTSTONES) chewable tablet 1 Tab (CANCELED) 1 Tablet, oral, DAILY, First dose on Sat03/09/20 at 0930, Until Discontinued, Routine 0830 (Given - Provider: Cami Womack RN) 0834 (Not Given - Provider: Preethi Blank, [place] - Reason: Discontinued) pantoprazole (PROTONIX) tablet 40 mg 40 mg, oral, DAILY, First dose (after last modification) on Sat03/03/20 at 0800, Until Discontinued, Routine 0830 (Given - Provider: Cami Womack RN) 0833 (Given - Provider: Preethi Blank, [place]) 0832 (Given - Provider: Isamar Scruggs, [place]) PRN Medication Order 03/29/2020 03/30/2020 03/31/2020 acetaminophen (TYLENOL) tablet 650 mg(Linked Group 1) 650 mg, oral, EVERY 4 HOURS PRN, Starting on Sat03/03/20 at 1300, Until Tiffanie 03/31/20 at 1501, Pain, Routine 0835 (Given - Provider: Cami Womack RN)1402 (Given - Provider: Cami Womack RN)1844 (Given - Provider: Blanca Llamas RN) 0428 (Given - Provider: Bel Interiano, [place]ALEA)1220 (Given - Provider: Preethi Blank, [place])1720 (Given - Provider: Blanca Llamas, [place]ALE[place])2215 (Given - Provider: Blanca Llamas, [place]) 0212 (Given - Provider: Blake Foster RN)0840 (Given - Provider: Isamar Scruggs, [place]) calcium carbonate (TUMS) 200 mg calcium (500 mg) per chewable tablet tablet,chewable 1 Tab 1 Tablet, oral, 4 TIMES DAILY PRN, Starting on Sat03/02/20 at 1330, Until Tiffanie 03/31/20 at 1501, Heartburn, Routine docusate sodium (COLACE) capsule 100 mg 100 mg, oral, 2 TIMES DAILY PRN, Starting on Sat03/17/20 at 1117, Until Tiffanie 7/20 at 1501, Constipation, Routine 1844 (Given - Provider: Blanca Llamas RN) polyethylene glycol 3350 (MIRALAX) packet 17 g 17 g, oral, DAILY PRN, Starting on Sat03/18/20 at 1521, Until Sat03/31/20 at 1501, Constipation, Routine senna (SENOKOT) tablet 1 Tab 1 Tablet, oral, 2 TIMES DAILY PRN, Starting on Sat03/09/20 at 0915, Until Sat03/31/20 at 1501, Constipation, Routine Linked Groups Order Group 1: acetaminophen (TYLENOL) tablet 650 mgJump to med 650 mg, oral, EVERY 4 HOURS PRN, Starting on Sat03/03/20 at 1300, Until Sat03/31/20 at 1501, Pain, Routine documented in this encounter Orders Medications Ordered That Babak ht Not Have Been Administered Count Last Ordered Date First Ordered Date lactulose (CHRONULAC) 20 gra m/30 mL solution 30 mL 1 03/18/2020 acetaminophen (TYLENOL) solu tion unit dose cup 995 mg 1 03/02/2020 acetaminophen (TYLENOL) suppository 975 mg 1 03/02/2020 guaiFENesin tablet 200 mg 1 03/02/2020 papain-alpha amylase-cellula se (CLOG ZAPPER) 2-5 mL 1 03/02/2020 Diet Count Last Ordered Date First Orde red Date DISCHARGE DIET 1 03/31/2020 Nursing Count Last Ordered Date First Orde red Date BATHING INSTRUCTIONS 1 03/31/2020 DRIVING INSTRUCTIONS 1 03/31/2020 REMOVE GHASSAN 1 03/08/2020 PATIENT AT LOW RISK FOR VTE: RISK OF MECHANICAL PROPHYLAXIS OUTWEIGHS 1 03/02/2020 VTE PHARMACOLOGIC PROPHYLAXI S CURRENTLY ORDERED OR ON ALTERNATIVE THER 1 03/02/2020 Consult Count Last Ordered Date First Orde red Date CONSULT NUTRITION 1 03/04/2020 ANESTHESIOLOGY PHYSICIAN ASSISTANT Count Last Ordered Date First Orde red Date ANESTHESIOLOGY PHYSICIAN ASSISTANT CLINICAL SWALLOW EVALUATION AND TREAT 1 03/02/2020 ANESTHESIOLOGY PHYSICIAN ASSISTANT COMMUNICATION EVALUATION AND TREAT 1 IV Count Last Ordered Date First Orde red Date IV REQUEST 1 03/23/2020 Admission Count Last Ordered Date First Orde red Date ADMIT TO IP REHAB 1 03/02/2020 Transfer Count Last Ordered Date First Orde red Date NON-TEACHING SERVICE 1 03/02/2020 Discharge Count Last Ordered Date First Orde red Date DISCHARGE PATIENT 1 03/31/2020 Leave of Absence Count Last Ordered Date First Ordered Date LEAVE OF ABSENCE 1 03/18/2020 Consult to Social Work Count Last Ordered Date First Ordered Date CONSULT SOCIAL WORK 1 03/02/2020 documented in this encounter Care Teams Avionics Shop Supervisor Relationship Specialty Start Date End Date Alejandrina Carrillo PA-C [address] [place] [address] PCP - General 04/07/19 07/05/20 documented as of this encounter
--- OUTSIDE RECORDS SUMMARY | 2024-12-03 16:02 | XMS_ITS | Encounter Summary ---
Author Organization [facility] Address [address] [place] [id number] Care Team Providers Care Quality Control Lab Technician Name Role Phone Alejandrina Carrillo PA-C Primary Care Provider [phone] Reason for Visit * Reason Comments New Patient Visit * Auth/Cert Specialty Diagnoses / Procedures Referred By Mitch t Referred To Contact Diagnoses Encounter for other specified aftercare Cerebral venous thrombosis Referral ID Status Reason Start Date Expiration Date Visits Re quested Visits Authorized [id number] 1 1 Encounter Details Date Type Department Care Team (Late st Contact Info) Description 03/23/2020 11:30 EDT Telemedicine [facility] Hematology & Oncology - [address] [id number] Jaden Rutherford MD [address] [place] [phone] Evin Maria MD [address] [facility], [address] [place] [address] Cerebral venous sinus thrombosis (Primary Dx); Pulmonary embolism and infarction (HCC-CMS); Chronic deep vein thrombosis (DVT) of both peroneal veins; 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 has been described to the patient. Patient has been informed of the anticipated benefits and possible risks. Patient understands the information provided regarding telemedicine, has had the opportunity to ask questions about this information, and all questions havebeen answered to patient???s satisfaction. Patient consents for the use of telemedicine in his/her medical care and authorizes the transmission of any relevant medical information to providers and their staff involved in patient???s medical or mental health care. TELEMEDICINE VIDEO VISIT Today's visit was provided through telemedicine video conferencing: The location of the patient : Acute rehabilitation. The location of the provider: Home office. The following staff and their role did participate in today's encounter visit: Evin Maria MD Date of Service: 03/23/2020 PCP: Alejandrina Carrillo Referring MD: Jaden Rutherford No chief complaint on file. HPI: Ms. White is a 50 year-old female who I am seeing for a cerebral sinus thrombosis. She has a fairly profound expressive aphasia, but with effort and chart review I have pieced together some of thehistory. Generally she had been doing well. In October 2019 she developed right leg swelling and was diagnosed with a superficial venous thrombosis of the right greater saphenous vein. As this did not approach the deep system, she was not anticoagulated at the time. In January, she presented with 4 days of worsening headaches and after a bit of back and forth eventually was diagnosed with a large cerebral sinus thrombosis and secondary ICH. At the time, there was discussion of trying to do an IR- guided thrombectomy but IR felt there was no indication for this. Her ICH worsened and she went to the OR for an urgent decompression. Slowly anticoagulation has been started since then and she is now tolerating full anticoagulant doses of enoxaparin. She was concurrently diagnosed with a segmental PE, bilateral upper extremity DVTs, and a right lower extremity SVTin the hospital. She does not have FVL, she does not have a lupus anticoagulant, and a protein C level was low at 52%. She had imaging of her chest and abdomen and there was no evidence of a cause or malignancy and a CBC was relatively normal. Today she had been getting better, but it seems she has developed worsening headaches over the pastfew days to the point where she has difficulty working with speech and occupational therapy. She has concurrent nausea with this. She is not short of breath, is not having any chest pain. She really wants to get better. ROS: (Intake form with complete ROS reviewed and scanned into PRISM) 10 point review of symptoms was otherwise negative with details below. Pertinent positives: See hPI Pertinent negatives: See HPI Past Medical History: Patient Patient Active Problem List Diagnosis Date Noted ??? Brain herniation (HCC-CMS) 02/17/2020 ??? Cerebral edema (HCC-CMS) 02/17/2020 ??? 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 Cerebral venous thrombosis 02/14/2020 ??? Encounter for insertion or removal of intrauterine contraceptive device 02/12/2020 ??? Nicotine dependence, unspecified, uncomplicated 02/12/2020 ??? Perimenopausal 02/12/2020 ??? Post concussion syndrome 02/12/2020 ??? Tobacco abuse 12/02/2012 ??? Chronic low back pain 10/13/2012 ??? Back pain 09/25/2012 ??? 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 Family History Problem Relation Age of Onset ??? Cancer Mother 72 Liver ??? Cancer Father 79 mesothelioma ??? Cancer Maternal Grandmother 80 Social History: Patient reports that she has been smoking. She has a 3.75 pack-year smoking history. She has never used smokeless tobacco. She reports that she drinks alcohol. Social History Social History Narrative ??? Not on file Medications: Multivitamins with minerals + ferrous gluconate, OLANZapine, Prazosin, QUEtiapine, acetaminophen, aspirin chewable, buPROPion, calcium carbonate, docusate, enoxaparin, estradiol-norethindrone, folic acid, guaiFENesin, lisinopriL, melatonin, nicotine, omeprazole, ondansetron (PF), pantoprazole, propRANolol, senna, and vitamin B complex Allergies: Patient is allergic to citalopram; duloxetine; pregabalin; and zolpidem. Physical Exam: There were no vitals filed for this visit.Estimated body mass index is 28.82 kg/m?? as calculated from the following: Height as of 03/04/20: 170.2 cm (67). Weight as of 03/21/20: 83.5 kg (184 lb). Patient appears alert and oriented. She has a significant expressive aphasia. With patience it is possible to speak with her, but it takes time and some complex topics she cannot express. Evin Maria MD 03/23/2020 11:29 Labs: Basic Metabolic Panel Lab Results Component [...] IRON, UIBC, TIBC, TRANSFERRIN, FERRITIN, LEAD, FOLATE, [id number], HAPTOGLOBIN Thrombosis Panel Lab Results Component Value Date PROTIME 13.2 03/02/2020 INR 1.1 03/02/2020 PTT 39 (H) 03/02/2020 PROTCCLOT 55 (L) 02/15/2020 PROTSCLOT >150 (H) 02/15/2020 DRVVT 39.6 (H) 02/18/2020 Factor V Leiden: Wildtype Prothrombin Gene:not assessed. Imaging: CT Chest / Abdomen reviewed. BOARD MIXER TENDER imaging reviewed. US of extremities reviewed. Assessment: Ms. White is a 50 year-old female with a recent history of RLE superficial thrombophlebitis and a more recent history of a devastating cerebral sinus thrombosis and concurrent diagnosis of a segmental pulmonary embolism, bilateral upper extremity DVTs, and a right lower extremity superficial thrombophlebitis. She is currently on enoxaparin and her levels have been quite random - however these have not been consistently done 4 hours after the last dose. She had been on 80mg sub-Q BID (weight 83kg) which was decreased yesterday to 60mg sub-Q BID due to a level of 1.17 (goal < 1.1 at 4h post dose). I'm obviously a little worried this may be too great a reduction, and would recommend checking in 2 daysto make sure the enoxaparin levels is adequate. As to the appropriate anticoagulant, I would keep her on enoxaparin for the time being as there are fewer drug interactions and she is still recoveringfrom her event. I would not use a DOAC, at least for the first year as they have not been well-studied in this setting. In terms of the etiology for her thrombosis - we have not discovered anything acquired such as cancer, APLS, or PNH. This is certainly quite a bit of thrombosis - but I do wonder if the PE's and DVTswere secondary to the cerebral sinus thrombosis and BOARD MIXER TENDER hemorrhage. We do have a low protein C in the acute setting, and at some time we will need to repeat all these studies in the non- acute setting. It is quite difficult to communicate with her - but she is trying - but as best I can tell she is having worsening headaches over the past 3 days associated with nausea. Given this, we should re-image her head. Plan: 1. Anticoagulation for cerebral sinus thrombosis, PE and DVT A. Recommend continuing enoxaparin. B. Please check level 4 hours after AM dose on Saturday - 4 hours it critical for interpreting the level (especially as her dose was reduced yesterday). C. At this time, would not switch to an oral. 2. Evaluation for reason for thrombosis. A. No evidence for APLS at presentation. B. May have protein C deficiency, but this should be checked again in a month or two and would not change current anticoagulation strategy. 3. Antithrombotic treatment A. Unclear the indication for aspirin here. B. Discontinue if no reason - cerebral sinus thrombosis is not a reason. 4. New headaches X 3 days (difficult to elicit history) A. Recommend that she get a MRV to evaluate for progression or new hemorrhage. 4. Follow-up 3 months (hopefully in person). Will need further thrombophilia testing. Thank you for this interesting consultation. Please contact my office with questions. . Evin Maria M.D. 03/23/2020 11:29 cc: Alejandrina Rutherford documented in this encounter Plan of Treatment Upcoming Encounters Date Type Department Care Team (Late st Contact Info) Description 03/04/2025 14:00 EDT Telemedicine [facility] [address] [place] [address] Brayan Polk MD [address] [facility] [address] [place] [address] 07/14/2025 14:30 EDT Office Visit [facility] Hematology & Oncology - [address] [phone] Evin Maria MD [address] [place] [address], [address] [place] [phone] documented as of this encounter Visit Diagnoses Diagnosis Cerebral venous sinus thrombosis- Primary Phlebitis and thrombophlebitis of intracranial venous sinuses Pulmonary embolism and infarction (HCC-CMS) Other pulmonary embolism and infarction Chronic deep vein thrombosis (DVT) of both peroneal veins (HCC-CMS) 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
--- OUTSIDE RECORDS SUMMARY | 2024-12-03 16:02 | XMS_ITS | Encounter Summary ---
Author Organization [facility] Address [address] [place] [id number] Care Team Providers Care Cash Office Worker Name Role Phone Alejandrina Carrillo PA-C Primary Care Provider [phone] Reason for Visit * Reason Comments Headache Pt BIBEMS for [facility]. Pt has significant expressive and receptive language deficits. Per RN at [facility] pt continues to c/o headache. [facility] MD would like pt to get CT. VSS * Auth/Cert Specialty Diagnoses / Procedures Referred By Mitch pruett Referred To Contact Diagnoses Encounter for other specified aftercare Cerebral venous thrombosis Referral ID Status Reason Start Date Expiration Date Visits Re quested Visits Authorized [id number] 1 1 Encounter Details Date Type Department Care Team (Late st Contact Info) Description 03/18/2020 16:36 EDT - 03/18/2020 21:11 EDT Emergency [facility] Emergency Department - Main [place] [address] [place] [address] Zeke Olmos MD [address] [address] Nonintractable headache, unspecified chronicity pattern, unspecified headache type (Primary Dx) Discharge Disposition: Rehab Facility Social History Tobacco [...] Sign Reading Time Taken Comments Blood Pressure 104/76 03/18/2020 1900 EDT Pulse - - Temperature 36.1 ??C (97 ??F) 03/18/20201944 EDT Respiratory Rate 19 03/18/20201914 EDT Oxygen Saturation 100% 03/18/20201914 EDT Inhaled Oxygen Concentration - - Weight [...] Nunez RN documented in this encounter Discharge Instructions * Attachments The following attachments cannot be sent through Care Everywhere. * Headache ([place]) documented in this encounter Medications at Time of Discharge acetaminophen (TYLENOL EXTRA STRENGTH) 500 mg tablet 2 tab(s) orally every 6 hours 0 acetaminophen (TYLENOL) 325 mg tablet Take 2 Tabs by mouth every 4 hours as needed for Pain. 50 Tab 03/31/2020 0 acetaminophen (TYLENOL) 325 mg tablet Take 2 Tabs by mouth every 4 hours as needed for Pain. 03/30/2020 0 acetaminophen (TYLENOL) 500 mg tablet Take 2 Tabs by mouth every 6 hours. 03/02/2020 0 aspirin chewable 81 mg tablet Take 1 Tab by mouth daily for 90 days. 30 Tab 03/31/2020 0 aspirin chewable 81 mg tablet Take 1 Tab by mouth daily. 03/03/2020 0 buPROPion (WELLBUTRIN XL) 300 mg XL tablet TK 1 T PO QAM 0 11/08/201903/31 0 calcium carbonate (TUMS) 200 mg calcium (500 mg) tablet,chewable Take 1 Tab by mouth 4 times daily as needed for Heartburn. 03/02/2020 0 docusate (COLACE) 50 mg/5 mL liquid Take 10 mL by mouth 2 times daily. 03/02/2020 0 enoxaparin (LOVENOX) 100 mg/mL syringe Inject 90 mg into the skin every 12 hours for 28 days. 51 Syringe 03/02/2020 0 enoxaparin (LOVENOX) 60 mg/0.6 mL injection Inject 50 mg into the skin every 12 hours for 30 days. 60 Syringe 03/30/2020 0 estradiol-noreth indrone (COMBIPATCH) 0.05-0.14 mg/24 hr patch 1 PATCH applied topically 2 times a week 0 folic acid (FOLVITE) 1 mg tablet Take 1 mg by mouth daily. 0 guaiFENesin 200 mg tablet Take 1 Tab by mouth every 6 hours as needed for Other (wet cough). 15 Tab 03/02/2020 0 lisinopriL (PRINIVIL) 20 mg tablet Take 1 Tab by mouth daily for 28 days. 28 Tab 03/03/2020 0 melatonin 3 mg tablet Take 1 Tab by mouth at bedtime. 03/02/2020 0 melatonin 5 mg tablet Take 1 Tab by mouth at bedtime for 30 days. 30 Tab 03/31/2020 0 melatonin 5 mg tablet Take 1 Tab by mouth at bedtime. 03/30/2020 0 Multivitamins with minerals + ferrous gluconate (CENTRUM) 9 mg iron/15 mL liquid oral solution 15 mL by per g tube route daily for 28 days. 420 mL 03/03/2020 0 nicotine (NICODERM CQ) 7 mg/[address] 1 Patch onto the skin every 24 hours for 28 days. 28 Patch 03/03/2020 0 OLANZapine (ZYPREXA) 5 mg tablet Take 5 mg by mouth daily. 0 omeprazole (PRILOSEC) 40 mg capsule TK ONE C PO QD 0 09/16/2019 0 ondansetron, PF, (ZOFRAN) 4 mg/2 mL solution Inject 2 mL into the vein every 4 hours as needed for Nausea. 1 Vial 03/02/2020 0 pantoprazole (PROTONIX) 40 mg tablet Take 1 Tab by mouth daily for 30 days. 30 Tab 03/31/2020 0 pantoprazole (PROTONIX) 40 mg tablet Take 1 Tab by mouth daily for 28 days. 28 Tab 03/03/2020 0 polyethylene glycol (MIRALAX) 17 gram/dose powder Take 17 g by mouth daily. 510 g 03/31/2020 4 polyethylene glycol 3350 (MIRALAX) 17 gram packet Take 17 g by mouth daily as needed for Other. 03/30/2020 0 Prazosin (MINIPRESS) 1 mg capsule TK ONE C PO HS 1 08/14/2019 0 propRANolol (INDERAL) 10 mg tablet TK 1 T PO ON AN EMPTY STOMACH Q 8 H PRN 0 09/16/2019 0 QUEtiapine (SEROQUEL) 50 mg tablet Take 100 mg by mouth at bedtime. 1 11/08/2019 0 senna (SENOKOT) 8.6 mg tablet Take 1 Tab by mouth 2 times daily as needed (Constipation). 03/30/2020 4 senna (SENOKOT) 8.6 mg tablet Take 1 Tab by mouth 2 times daily. 03/02/2020 0 VITAMIN B COMPLEX-100 ORAL Take by mouth daily. 0 documented as of this encounter Discharge Disposition Disposition Code Departure Means Destination Comment s Rehab Facility Physical Acute Rehab D/C back to [facility] documented in this encounter Progress Notes * Parag Pickett MD - 03/18/2020 2012 EDT Brief Neurosurgery Note: Called by [facility] regarding concern over elevated heparin level and corresponding headache. Recommended head CT to evaluate for new hemorrhage. CT performed and demonstrates expected evolution of previous stroke and hemorrhage. No formal neurosurgery consult performed. PARAG PICKETT MD 03/18/2020 20:12 * Maria Victoria Hernandez MD - 03/18/2020 1756 EDT 03/18/2020 (1800) I see that the patient is getting iv contrast for the CT abdomen right now. Please hydrate, or enable rehab to hydrate through an iv, before sending her back. She had a bump in her creatinine today. MD David documented in this encounter ED Notes * Aga Palomino RN - 03/18/2020 2110 EDT Discharge instructions explained to patient, who verbalized understanding of discharge instructions. Pt has expressive aphrasia. Vital signs stable. Peripheral IV removed. Pt left in the care of [facility]. * Aga Palomino RN - 03/18/2020 191 EDT 1914: Assumed care of patient. Report received from AZALEA Reyes. Patient discharged. Will call report to [facility]. 1999: Report given to Page at [facility]. This RN also discussed drop in hgb and hct with Page. Pt using commode now. Will set up transportation back to facility. 2009: Patient had hard, formed bowel movement. BM appears slightly bloody, but patient was straining to have BM. Dr. Olmos notified. 2019: Dr. Olmos discussed possible hemorrhoidal blood in stool with provider at [facility]. Patient still scheduled for transport back to facility via [facility]. * Daniel Jerez - 03/18/2020 1803 EDT Blood drawn via saline lock per protocol, tiger and purple tube(s) sent to lab per order. IV highlypositional and minimum blood amount drawn. * Amy Javed RN - 03/18/2020 1701 EDT 1710: Pt BIBEMS from [facility]. Pt has expressive and receptive language deficits which limits amount of history this RN could attain. This RN spoke to AZALEA Ramires at [facility] to receive report. Per MD note pt was found to have ICH with 2 mm shift on 02/14/2020. This lead to admission to [facility] where CTA showed venous thrombosis of L internal jugular, sigmoid and transverse sinus as well as the veins of Trolard and Kristen. Pt also would found to have a PE of upper right lobe. On 02/16/2020 pt underwent a craniotomy. Pt was then admitted to Rehab. Per RN at Rehab pt c/o of increasingly worse headache and refused therapy this afternoon which per RN is unusual for pt. MD informed. MD at bedside. Will continue to monitor. 1724: Pt taken to CAT Scan 1745: Pt returned from CAT Scan. 1752: Pt asked what time it was, this RN told her, pt began to say she needs medication at 9 for her head as she pointed to her left forehead. This RN replied she will help her figure out what she isto receive at 9, pt began to get upset and said no and she held up six fingers but said nine. This RN clarified she meant six and pt nodded head. informed. Pt no longer upset and hooked up to monitor. Call farris in reach. 190: Report given to AZALEA Yung. * Zeke Olmos MD - 03/18/2020 1701 EDT This patient received an evaluation and medical screening exam for emergent medical conditions at the [facility] on 03/18/2020 Scribe attestation: This documentation is recorded by Marcia Carson acting as Scribe under the directionand presence of Zeke Olmos MD. Zeke Olmos MD: I personally performed the services recorded by the scribe in my presence. I confirm the scribe's documentation has been reviewed by me to accurately and completely record my work, treatment, procedures, and medical decision making. NARDA Loya is a 50 y.o. female with PMH including post concussion syndrome, cerebral venous sinus thrombosis, brain herniation, cerebral edema, and left-sided nontraumatic intracerebral hemorrhage, s/p craniotomy on 02/16/20, who [facility] for evaluationof QUINONES and abdominal pain. On chart review, the patient was found to have an ICH with 2mm shift on 02/14/20, for which she was admitted and was subsequently found to have a venous thrombosis of the L internal jugular, sigmoid, and transverse sinus and veins of Trolard and Kristen, as well as an upper right lobe PE. Medical records state that that she underwent a craniotomy on 02/16/20 and was then admitted to rehab. Per medical records from [facility], she states that she has had a worsening QUINONES after her recent craniotomy and refused therapy this afternoon. She endorses accompanying abdominal pain around her G-tube site. She denies experiencing any N/V, neck pain, urinary changes, constipation,or recent falls. She notes that she has not had a BM recently. History was provided by: the patient and medical records; the patient's history was limited, secondary to her altered mental status. Patient's pertinent PMH, FH, SH were reviewed and updated PRN. ROS ROS limited, secondary to the patient's altered mental status. Physical Exam Vital Signs Temp: 36.7 ??C (98.1 ??F) Heart Rate: 98 BPM Resp: 23 SpO2: 100 % BP: 91/66 BP MAP: 72 mm Hg BP Device: BP Machine BP Patient Position: Semi fowlers BP Cuff Location: Left arm Peacock Agitation Sedation Scale: 0 O2 Device: Nasal cannula Nursing notes and vital signs were reviewed. Constitutional: Well appearing, no acute distress, conversant HENT: Atraumatic, normocephalic Eyes: Conjunctiva normal, possible right lateral vision loss. Neck: moving neck spontaneously Heart: Tachycardic. Lungs: Normal respiratory effort Abdomen: Abdomen tender in multiple areas without guarding, feeding tube in place which does not appear infected. Rectal: Light brown colored stool, no evidence of bleeding. Skin: No overt rashes on exposed skin Extremities: Moving spontaneously Neuro: No facial droop, alert, mild intermittent confusion. Psych: Behavior is appropriate and cooperative Laboratory Results Labs Reviewed COMPLETE BLOOD COUNT AND DIFFERENTIAL - Abnormal Result Value Status WBC 6.29 Final RBC 3.19 (*) Final Hemoglobin 10.2 (*) Final HCT 29.4 (*) Final MCV 92 Final MCH 32.0 Final MCHC 34.7 Final RDW-CV 12.9 Final RDW-SD 43.1 Final PLT 162 Final MPV 11.6 Final Neutrophils 46.6 Final Lymphocytes 41.2 Final Monocytes 7.8 Final Eosinophils 3.5 Final Basophils 0.6 Final Immature Grans 0.3 Final Absolute Neutrophils 2.93 Final Absolute Lymphocytes 2.59 Final Absolute Monocytes 0.49 Final Absolute Eosinophils 0.22 Final Absolute Basophils 0.04 Final Absolute Immature Grans 0.02 Final Type of Differential: Auto Final COMPREHENSIVE METABOLIC PANEL (CMP) - Abnormal Sodium 133 (*) Final Potassium 3.9 Final Chloride 107 Final CO2 Total 15 (*) Final Glucose 92 Final BUN 34 (*) Final Creatinine 1.01 Final eGFR 64 Final Total Protein 5.0 (*) Final Albumin 2.6 (*) Final Alkaline Phosphatase 123 Final AST 40 Final ALT 68 (*) Final Bilirubin, Total <0.5 Final Calcium 7.5 (*) Final Calculated Calcium 8.6 Final LIPASE - Normal Lipase [address] ABDOMEN PELVIS W CONTRAST (Final result) Result time 03/18/20 18:21:32 Final result Impression: 1. Mild increase in diameter of the common bile duct, nonspecific. No evidence of cholelithiasis onrecent right upper quadrant ultrasound. Recommend clinical correlation as to whether the patient has right upper quadrant pain and correlation with LFTs. MRCP could be obtained for further evaluationif clinically indicated. 2. Interval placement of a PEG tube. There is thickening of the left rectus muscle along the courseof the tubing of the PEG tube. Recommend clinical correlation. 3. Hepatic hypodensities, some of which represent cysts are unchanged. I have personally reviewed the images and the above interpretation and agree with the findings. Narrative: CT ABDOMEN PELVIS W CONTRAST 03/18/2020 5:20 PM Signs and Symptoms/Comments: Abdominal pain, acute, nonlocalized Technique: CT of the abdomen and pelvis was performed following the administration intravenous contrast; coronal and sagittal multiplanar reconstructions generated. Comparison: CT abdomen pelvis 02/15/2020 ultrasound abdomen 02/15/2020. Findings: Lower chest: Predominantly clear. Hepatobiliary: Liver is diffusely hypoattenuating. Several hepatic hypodensities, some of which aretoo small to accurately characterize, are unchanged from 02/15/2020. The CBD measures 8 mm at the andrew hepatis, previously 6 mm. No significant intrahepatic biliary ductal dilatation. Spleen, pancreas, adrenal glands: Normal. Kidneys, ureters, bladder: The kidneys are symmetrically enhancing. Tiny renal hypodensities are too small to accurately characterize. (Axial image #126, right mid kidney). No evidence of urinary calculi or hydroureteronephrosis. The urinary bladder is mildly distended with bladder adjacent fat stranding. Uterus, ovaries: The uterus is retroverted. No adnexal mass.. Bowel: The appendix is normal. A PEG has been placed in the interval, within the gastric lumen. No evidence of bowel obstruction or bowel adjacent inflammatory process. Peritoneal cavity / Subperitoneal space: No evidence of free air or fluid. Lymphovascular: No lymphadenopathy. The visceral vessels are patent. Abdominal wall: Subcutaneous soft tissue density and air consistent with subcutaneous injections. No bowel-containing hernia. There is thickening of the left rectus muscle along the course of the tubing of the percutaneous gastrostomy tube. Musculoskeletal: Unremarkable for age Medical Data Analyst: No additional findings on the accompanying program director scouting. Preliminary result Impression: 1. Mild increase in diameter of the common bile duct, nonspecific. No evidence of calculi on recentright upper quadrant ultrasound. Correlate for recent opioid use. There is continued clinical concern for biliary ductal pathology, MR of the abdomen with and without contrast including MRCP can be obtained. 2. Hepatic steatosis. 3. Hepatic hypodensities, some of which represent cysts are unchanged. 4. Interval placement of a PEG tube, normal in position. Narrative: PRELIMINARY RESIDENT REPORT CT ABDOMEN PELVIS W CONTRAST 03/18/2020 5:20 PM Signs and Symptoms/Comments: Abdominal pain, acute, nonlocalized Technique: CT of the abdomen and pelvis was performed following the administration intravenous contrast; coronal and sagittal multiplanar reconstructions generated. Comparison: CT abdomen pelvis 02/15/2020 ultrasound abdomen 02/15/2020. Findings: Lower chest: Predominantly clear. Hepatobiliary: Liver is diffusely hypoattenuating. Several hepatic hypodensities, some of which aretoo small to accurately characterize, are unchanged from 02/15/2020. The CBD measures 8 mm at the andrew hepatis, previously 6 mm. No significant intrahepatic biliary ductal dilatation. Spleen, pancreas, adrenal glands: Normal. Kidneys, ureters, bladder: The kidneys are symmetrically enhancing. Tiny renal hypodensities are too small to accurately characterize. (Axial image #126, right mid kidney). No evidence of urinary calculi or hydroureteronephrosis. The urinary bladder is mildly distended with bladder adjacent fat stranding. Uterus, ovaries: The uterus is retroverted. No adnexal mass. Bowel: The appendix is normal. A PEG has been placed in the interval, within the gastric lumen. No evidence of bowel obstruction or bowel adjacent inflammatory process. Peritoneal cavity / Subperitoneal space: No evidence of free air or fluid. Lymphovascular: No lymphadenopathy. The visceral vessels are patent. Abdominal wall: Subcutaneous soft tissue density and air consistent with subcutaneous injections. No bowel-containing hernia. Musculoskeletal: No acute or suspicious osseous abnormality. Medical Data Analyst: No additional findings on the accompanying program director scouting. CT HEAD WO CONTRAST (Final result) Result time 03/18/20 18:06:00 Final result Impression: No new intracranial abnormality identified. I have personally reviewed the images and the above interpretation and agree with the findings. Narrative: CT HEAD WO CONTRAST 03/18/2020 5:15 PM HISTORY: Headache, chronic, no new features. COMPARISON: CT head 03/08/2020, CTV head 02/25/2020. TECHNIQUE: CT head without contrast. FINDINGS: PARENCHYMA: Continued evolution in the appearance of left temporoparietal parenchymal hemorrhage and encephalomalacia. No new hemorrhage. No new large vascular territory infarct. 1 to 2 mm of rightward midline shift is not significantly changed from prior. EXTRA-AXIAL SPACES: Hypodense left frontal lobe adjacent subdural collection, unchanged from prior measuring maximum 8 mm in thickness (coronal image #58). No new extra-axial collection. VENTRICULAR SYSTEM: Mild ex vacuo dilatation of the atrium and temporal horn of the left lateral ventricle. Ventricularcaliber otherwise normal. VESSELS: Residual hyperdense thrombus in the distal transverse and sigmoid sinuses on the left. BONES: Status post left hemicraniectomy. ORBITS: No abnormality. PARANASAL SINUSES/MASTOID AIR CELLS: Predominantly clear. EXTRACRANIAL SOFT TISSUES: Unremarkable aside from surgical changes. Preliminary result Impression: 1. Continued evolution in the appearance of left temporoparietal hemorrhage. Stable left subdural fluid collection. Midline shift is stable. No acute intracranial hemorrhage, acute territorial infarction, or suspicious mass identified. 2. Status post left craniectomy. Narrative: PRELIMINARY RESIDENT REPORT EXAM: CT HEAD WO CONTRAST HISTORY: Headache, chronic, no new features TECHNIQUE: CT head without contrast. Structured report code: [id number].CT01 COMPARISON: CT head 03/08/2020. FINDINGS: PARENCHYMA: Continued evolution in the appearance of left temporoparietal parenchymal hemorrhage and encephalomalacia. No evidence of acute infarction. 1 to 2 mm of rightward midline shift is not significantly changed from prior. No acute parenchymal hemorrhage. EXTRA-AXIAL SPACES: Hypodense left frontal lobe adjacent subdural collection is unchanged from prior measuring maximum 8 mm in thickness (coronal image #58), previously 8 mm. No new extra-axial collection. No suspiciousextra-axial mass. VENTRICULAR SYSTEM: Normal size and configuration. No obstructive hydrocephalus. VESSELS: Limited evaluation without IV contrast. Normal density in the dural venous sinuses. BONES: Status post left craniectomy. No concerning lesions. ORBITS: No significant abnormality. PARANASAL SINUSES/MASTOID AIR CELLS: Predominantly clear. EXTRACRANIAL SOFT TISSUES: Unremarkable aside from surgical changes. Data Interpretation Imaging obtained was significant for: CT Head was negative; CT Abdomen/Pelvis W Contrast was significant for abnormal biliary findings, however with normal labs overall this is not concerning. Laboratory results independently reviewed, significant for: hemoglobin grossly stable, LFTs with mild ALT elevation, otherwise unremarkable. Procedures Procedures Medical Decision Making/ED course Assessment: Here due to increasing QUINONES in a patient with recent ICH in setting of venous sinous thrombosis. Also by report from Neurosurgery her Lovenox level has been high. She was sent here for a CTHead. On exam, she had abdominal tenderness with recent G tube placement. Plan for labs, CT head, CT abdomen. Differential: Includes bowel obstruction, diverticulitis, ICH, and post-bleed QUINONES. ED Course: I discussed the patient???s case with Neurosurgery, who stated that their quick read of the patient's CT Head looked unremarkable but would reassess after the formal read. Inpatient Rehabilitation requested IV hydration, as the patient's Cr levels was increased earlier today and was was receiving IV contrast. The patient was treated with 1L IV Plasmalyte-A bolus and 650mg PO Tylenol. At this time, the patient was stable for discharge back to [facility]. Prior to discharge usual and customary precautions were reviewed with the patient and/or family including follow-up instructions and reasons to return to the Emergency Department if condition worsens, does not improve as expected, or other new concerns arise. Reasoning: Labs did not show obstructive pattern. CT Head was without new findings; CT A/P noted but I did not suspect any significant acute abnormalities. Exam did not suggest infection related to G-tube. This case was discussed with Neurosurgery. Clinical Impression Final diagnoses: Nonintractable headache, unspecified chronicity pattern, unspecified headache type Disposition Disposition decisions were made weighing risks and benefits of hospitalization vs. outpatient treatment, the risk for further decompensation, and the patient???s wishes. - If discharged: the patient was stable, improved, or requested discharge. Prior to discharge my usual and customary return precautions were reviewed with the patient and/or family. * Jean Morrison, RN - 03/18/2020 1642 EDT TCALL: NAPOLEON LOYA. REF TO ED BY [facility]. SUPERTHERAPEUTIC ON LOVENOX, HAS QUINONES. COMING TO THE ED FOR A CT. PARAG THOMAS FROM NEUROSURG AWARE, PAGE ON ARRIVAL (ARB) documented in this encounter Plan of Treatment Upcoming Encounters Date Type Department Care Team (Late st Contact Info) Description 03/04/2025 14:00 EDT Telemedicine [facility] Neu[facility] Clinic [address] [place] [address] Brayan Polk MD [address] [facility] [address] [place] [address] 07/14/2025 14:30 EDT Office Visit [facility] Hematology & Oncology - [address] [id number] Evin Maria MD [address] [facility], [address] [place] [address] documented as of this encounter Procedures Procedure Name Priority Date/Time Associated Diagnosis Comments LIPASE STAT 03/18/2020 18:00 EDT COMPREHENSIVE METABOLIC PANEL (CMP) STAT 03/18/2020 18:00 EDT COMPLETE BLOOD COUNT AND DIFFERENTIAL STAT 03/18/2020 17:[address] ABDOMEN PELVIS W CONTRAST STAT 03/18/2020 17:[address] HEAD WO CONTRAST STAT 03/18/2020 1 7:35 EDT documented in this encounter Results * LIPASE (03/18/2020 18:00 EDT) Lipase 69 <251 U/L 03/18/2020 18:25 [facility] Blood VENOUS BLOOD / Unknown Venipuncture / Unknown 03/18/2020 18:00 EDT 03/18/2020 18:05 EDT us Zeke Olmos MD CHEMISTRY & BLOOD GAS ORDER [place] Final Result [facility] [address] [place] [address] * (ABNORMAL) COMPREHENSIVE METABOLIC PANEL (CMP) (03/18/2020 18:00 EDT) Sodium 133(L) 136 - 145 mEq/L 03/18/2020 18:48 [facility] Potassium 3.9 3.5 - 5.0 mEq/L 03/18/2020 18:48 [facility] Chloride 107 96 - 110 mEq/L 03/18/2020 18:48 [facility] CO2 Total 15(L) 22 - 32 mEq/L 03/18/2020 18:48 [facility] Glucose 92 70 - 100 mg/dL 03/18/2020 18:48 [facility] [facility] BUN 34(H) 10 - 26 mg/dL 03/18/2020 18:48 [facility] Creatinine 1.01 0.52 - 1.04 mg/dL 03/18/2020 18:48 [facility] eGFR 64 >60 mL/min/1.7 3m2 03/18/2020 18:48 [facility] Comment:eGFR calculated mickey g CKD-EPI equation for non- Americans. Multiply eGFR by 1.16 for patients. Total Protein 5.0(L) 6.3 - 8.2 g/dL 03/18/2020 18:48 [facility] Albumin 2.6(L) 3.4 - 4.9 g/dL 03/18/2020 18:48 [facility] Alkaline Phosphatase 123 38 - 126 U/L 03/18/2020 18:48 [facility] AST 40 15 - 46 U/L 03/18/2020 18:48 [facility] ALT 68(H) <35 U/L 03/18/2020 18:48 [facility] Bilirubin, Total <0.5 <1.4 mg/dL 03/18/20 20 18:48 [facility] Calcium 7.5(L) 8.5 - 10.5 mg/dL 03/18/2020 18:48 [facility] Calculated Calcium 8.6 8.5 - 10.5 mg/dL 03/18/2020 18:48 [facility] Blood VENOUS BLOOD / Unknown Venipuncture / Unknown 03/18/2020 18:00 EDT 03/18/2020 18:05 EDT us Zeke Olmos MD CHEMISTRY & BLOOD GAS ORDER [place] Final Result Performing Organization Address City/State/[facility] Co de Phone Number [facility] [address] [place] [address] * (ABNORMAL) COMPLETE BLOOD COUNT AND DIFFERENTIAL (03/18/2020 17:59 EDT) WBC 6.29 4.00 - 12.40 K/cmm 03/18/2020 18:17 [facility] RBC 3.19(L) 3.86 - 5.04 M/cmm 03/18/2020 18:17 [facility] Hemoglobin 10.2(L) 11.6 - 15.2 gm/dL 03/18/2020 18:17 [facility] HCT 29.4(L) 34.9 - 44.4 % 03/18/2020 18:17 [facility] MCV 92 81 - 98 fl 03/18/2020 18:17 [facility] MCH 32.0 26.7 - 33.3 pg 03/18/2020 18:17 [facility] MCHC 34.7 32.1 - 35.9 gm/dL 03/18/2020 18:17 [facility] RDW-CV 12.9 <14.7 % 03/18/2020 18:17 [facility] RDW-SD 43.1 <50.4 fl 03/18/2020 18:17 [facility] PLT 162 141 - 377 K/cmm 03/18/2020 18:17 [facility] MPV 11.6 9.5 - 12.7 fl 03/18/2020 18:17 [facility] % Neutrophils 46.6 % 03/18/2020 18:17 [facility] % Lymphocytes 41.2 % 03/18/2020 18:17 [facility] % Monocytes 7.8 % 03/18/2020 18:17 [facility] % Eosinophils 3.5 % 03/18/2020 18:17 [facility] % Basophils 0.6 % 03/18/2020 18:17 [facility] % Immature Grans 0.3 % 03/18/20 20 18:17 [facility] Absolute Neutrophils 2.93 2.20 - 8.85 K/cmm 03/18/2020 18:17 [facility] Absolute Lymphocytes 2.59 1.09 - 3.30 K/cmm 03/18/2020 18:17 [facility] Absolute Monocytes 0.49 0.10 - 0.80 K/cmm 03/18/2020 18:17 [facility] Absolute Eosinophils 0.22 0.03 - 0.61 K/cmm 03/18/2020 18:17 [facility] ABS Basophils 0.04 0.01 - 0.11 K/cmm 03/18/2020 18:17 [facility] Absolute Immature Grans 0.02 0.00 - 0.06 K/cmm 03/18/2020 18:17 [facility] Type of Differential: Auto 03/18/2020 18:17 [facility] Blood VENOUS BLOOD / Unknown Venipuncture / Unknown 03/18/2020 17:59 EDT 03/18/2020 18:05 EDT us Zeke J Olmos MD PACKAGES & DNA PROBE ORDERA BLES Final Result [facility] [address] [place] [address] * CT ABDOMEN PELVIS W CONTRAST (03/18/2020 17:42 EDT) Anatomical Region Laterality Modality Body, Abdomen, Pelvis, Abdomen and Pelvis Computed Tomography 03/18/2020 18:2 1 EDT Impressions 03/18/2020 18:21 EDT 1. Mild increase in diameter of the common bile duct, nonspecific. No evidence of cholelithiasis on recent right upper quadrant ultrasound. Recommend clinical correlation as to whether the patient has right upper quadrant pain and correlation with LFTs. MRCP could be obtained for further evaluation if clinically indicated. 2. Interval placement of a PEG tube. There is thickening of the left rectus muscle along the course of the tubing of the PEG tube. Recommend clinical correlation. 3. Hepatic hypodensities, some of which represent cysts are unchanged. I have personally reviewed the images and the above interpretation and agree with the findings. Narrative 03/18/2020 18:[address] ABDOMEN PELVIS W CONTRAST ??03/18/2020 5:20 PM Signs and Symptoms/Comments: ?? Abdominal pain, acute, nonlocalized Technique: CT of the abdomen and pelvis was performed following the administration intravenous contrast; coronal and sagittal multiplanar reconstructions generated. Comparison: CT abdomen pelvis 02/15/2020 ultrasound abdomen 02/15/2020. Findings: Lower chest: Predominantly clear. Hepatobiliary: Liver is diffusely hypoattenuating. Several hepatic hypodensities, some of which are too small to accurately characterize, are unchanged from 02/15/2020. The CBD measures 8 mm at the andrew hepatis, previously 6 mm. No significant intrahepatic biliary ductal dilatation. Spleen, pancreas, adrenal glands: Normal. Kidneys, ureters, bladder: The kidneys are symmetrically enhancing. Tiny renal hypodensities are too small to accurately characterize. (Axial image #126, right mid kidney). No evidence of urinary calculi or hydroureteronephrosis. The urinary bladder is mildly distended with bladder adjacent fat stranding. Uterus, ovaries: The uterus is retroverted. No adnexal mass.. Bowel: The appendix is normal. A PEG has been placed in the interval, within the gastric lumen. No evidence of bowel obstruction or bowel adjacent inflammatory process. Peritoneal cavity / Subperitoneal space: No evidence of free air or fluid. Lymphovascular: No lymphadenopathy. The visceral vessels are patent. Abdominal wall: Subcutaneous soft tissue density and air consistent with subcutaneous injections. No bowel-containing hernia. ??There is thickening of the left rectus muscle along the course of the tubing of the percutaneous gastrostomy tube. Musculoskeletal: Unremarkable for age Medical Data Analyst: No additional findings on the accompanying program director scouting. Procedure Note Tegan Ponce MD - 03/18/2020 CT ABDOMEN PELVIS W CONTRAST 03/18/2020 5:20 PM Signs and Symptoms/Comments: Abdominal pain, acute, nonlocalized Technique: CT of the abdomen and pelvis was performed following the administrationintravenous contrast; coronal and sagittal multiplanar reconstructionsgenerated. Comparison: CT abdomen pelvis 02/15/2020 ultrasound abdomen 02/15/2020. Findings: Lower chest: Predominantly clear. Hepatobiliary: Liver is diffusely hypoattenuating. Several hepatichypodensities, some of which are too small to accurately characterize, areunchanged from 02/15/2020. The CBD measures 8 mm at the andrew hepatis,previously 6 mm. No significant intrahepatic biliary ductal dilatation. Spleen, pancreas, adrenal glands: Normal. Kidneys, ureters, bladder: The kidneys are symmetrically enhancing. Tinyrenal hypodensities are too small to accurately characterize. (Axial image#126, right mid kidney). No evidence of urinary calculi orhydroureteronephrosis. The urinary bladder is mildly distended withbladder adjacent fat stranding. Uterus, ovaries: The uterus is retroverted. No adnexal mass.. Bowel: The appendix is normal. A PEG has been placed in the interval,within the gastric lumen. No evidence of bowel obstruction or boweladjacent inflammatory process. Peritoneal cavity / Subperitoneal space: No evidence of free air orfluid. Lymphovascular: No lymphadenopathy. The visceral vessels are patent. Abdominal wall: Subcutaneous soft tissue density and air consistent withsubcutaneous injections. No bowel-containing hernia. There is thickeningof the left rectus muscle along the course of the tubing of thepercutaneous gastrostomy tube. Musculoskeletal: Unremarkable for age Medical Data Analyst: No additional findings on the accompanying program director scouting. IMPRESSION 1. Mild increase in diameter of the common bile duct, nonspecific. Noevidence of cholelithiasis on recent right upper quadrant ultrasound.Recommend clinical correlation as to whether the patient has right upperquadrant pain and correlation with LFTs. MRCP could be obtained forfurther evaluation if clinically indicated. 2. Interval placement of a PEG tube. There is thickening of the leftrectus muscle along the course of the tubing of the PEG tube. Recommendclinical correlation. 3. Hepatic hypodensities, some of which represent cysts are unchanged. I have personally reviewed the images and the above interpretation andagree with the findings. us Zeke Olmos MD IMG CT ORDERABLES Final Res ult * CT HEAD WO CONTRAST (03/18/2020 17:35 EDT) Anatomical Region Laterality Modality Head Computed Tomogra phy 03/18/2020 18:0 6 EDT Impressions 03/18/2020 18:06 EDT No new intracranial abnormality identified. I have personally reviewed the images and the above interpretation and agree with the findings. Narrative 03/18/2020 18:[address] HEAD WO CONTRAST 03/18/2020 5:15 PM HISTORY: Headache, chronic, no new features. ?? COMPARISON: CT head 03/08/2020, CTV head 02/25/2020. TECHNIQUE: CT head without contrast. FINDINGS: PARENCHYMA: Continued evolution in the appearance of left temporoparietal parenchymal hemorrhage and encephalomalacia. No new hemorrhage. No new large vascular territory infarct. 1 to 2 mm of rightward midline shift is not significantly changed from prior. EXTRA-AXIAL SPACES: Hypodense left frontal lobe adjacent subdural collection, unchanged from prior measuring maximum 8 mm in thickness (coronal image #58). No new extra-axial collection. VENTRICULAR SYSTEM: Mild ex vacuo dilatation of the atrium and temporal horn of the left lateral ventricle. Ventricular caliber otherwise normal. VESSELS: Residual hyperdense thrombus in the distal transverse and sigmoid sinuses on the left. BONES: Status post left hemicraniectomy. ORBITS: No abnormality. PARANASAL SINUSES/MASTOID AIR CELLS: Predominantly clear. EXTRACRANIAL SOFT TISSUES: Unremarkable aside from surgical changes. Procedure Note Eneida Brar MD - 03/18/2020 CT HEAD WO CONTRAST 03/18/2020 5:15 PM HISTORY: Headache, chronic, no new features. COMPARISON: CT head 03/08/2020, CTV head 02/25/2020. TECHNIQUE: CT head without contrast. FINDINGS: PARENCHYMA: Continued evolution in the appearance of left temporoparietal parenchymalhemorrhage and encephalomalacia. No new hemorrhage. No new large vascularterritory infarct. 1 to 2 mm of rightward midline shift is notsignificantly changed from prior. EXTRA-AXIAL SPACES: Hypodense left frontal lobe adjacent subdural collection, unchanged fromprior measuring maximum 8 mm in thickness (coronal image #58). No newextra-axial collection. VENTRICULAR SYSTEM: Mild ex vacuo dilatation of the atrium and temporal horn of the leftlateral ventricle. Ventricular caliber otherwise normal. VESSELS: Residual hyperdense thrombus in the distal transverse and sigmoid sinuseson the left. BONES: Status post left hemicraniectomy. ORBITS: No abnormality. PARANASAL SINUSES/MASTOID AIR CELLS: Predominantly clear. EXTRACRANIAL SOFT TISSUES: Unremarkable aside from surgical changes. IMPRESSION No new intracranial abnormality identified. I have personally reviewed the images and the above interpretation andagree with the findings. us Zeke Olmos MD IMG CT ORDERABLES Final Res ult documented in this encounter Visit Diagnoses Diagnosis Nonintractable headache, unspecified chronicity pattern, unspecified headache type- Primary documented in this encounter Administered Medications Inactive Administered Medications - up to 3 most recent administrations Medication Order MAR Action Action Date Dose Rate Site acetaminophen (TYLENOL) tablet 650 mg 650 mg, oral, NOW X1, 1 dose, On Sat03/18/20 at 1900, STAT Given 03/18/2020 18:58 EDT 650 mg electrolyte-A (PLASMALYTE-A) bolus 1,000 mL 1,000 mL, intravenous, NOW X1, 1 dose, On Sat03/18/20 at 1800 New Bag 03/18/2020 18:05 EDT 1,000 mL iohexoL (OMNIPAQUE 350) solution 100 mL 100 mL, intravenous, Once in imaging, 1 dose, Starting on Sat03/18/20 at 1723, Until Sat03/18/20 at 1743, Routine, Imaging Protocol Orders Given 03/18/2020 17:43 EDT 85 mL documented in this encounter Active and Recently Administered Medications Times are shown in EDT. Scheduled Medication Order 03/16/2020 03/17/2020 03/18/2020 acetaminophen (TYLENOL) tablet 650 mg (COMPLETED) 650 mg, oral, NOW X1, 1 dose, On Sat03/18/20 at 1900, STAT 1858 (Given - Provid er: Amy Javed RN) electrolyte-A (PLASMALYTE-A) bolus 1,000 mL (COMPLETED) 1,000 mL, intravenous, NOW X1, 1 dose, On Sat03/18/20 at 1800 1805 (New Bag - Prov ider: Amy Javed RN)1945 (Completed - Provider: Aga Palomino RN) iohexoL (OMNIPAQUE 350) solution 100 mL (COMPLETED) 100 mL, intravenous, Once in imaging, 1 dose, Starting on Sat03/18/20 at 1723, Until Sat03/18/20 at 1743, Routine, Imaging Protocol Orders 1743 (Given - Provid er: Dionte Espinoza) documented in this encounter Care Teams Cash Office Worker Relationship Specialty Start Date End Date Alejandrina Carrillo PA-C [address] [place] [id number] PCP - General 04/07/19 07/05/20 documented as of this encounter
--- OUTSIDE RECORDS SUMMARY | 2024-12-03 16:02 | XMS_ITS | Encounter Summary ---
Author Organization [facility] Address [address] [place] [address] Care Team Providers Care Payable Representative Name Role Phone Alejandrina Carrillo PA-C Primary Care Provider [phone]- [phone] Encounter Details Date Type Department Care Team (Late st Contact Info) Description 03/02/2020 Orders Only [facility] Radiology - Main [place] [address] [place] [address] Jose Enriquez MD Social History Tobacco Use Types Packs/Day [...] have Coronavirus / COVID-19? No / Unsure 02/14/2020 14:29 EDT documented as of this encounter Functional [...] Telemedicine [facility] Neurology Clinic [address] [place], [place] [phone] Brayan Polk MD [address] [facility] [address] [place] [address] 07/14/2025 14:30 EDT [facility] Hemat[facility] & Oncology - [address] [phone] Evin Maria MD [address] [place] [address], [address] [place] [phone] documented as of this encounter Visit Diagnoses Not on filedocumented in this encounter Care Teams Payable Representative Relationship Specialty Start Date End Date Alejandrina Carrillo PA-C [address] [place] [address] PCP - General 04/07/19 07/05/20 documented as of this encounter
--- OUTSIDE RECORDS SUMMARY | 2024-12-03 16:02 | XMS_ITS | Encounter Summary ---
Author Organization [facility] Address [address] [place] [address] Care Team Providers Care Brick Setter Operator Name Role Phone Alejandrina Carrillo PA-C Primary Care Provider +1- [phone] Reason for Visit * Reason Onset Date Comments Other 03/22/2020 Encounter Details Date Type Department Care Team (Late st Contact Info) Description 03/22/2020 Telephone [facility] Speech & Language [address] [place] [address] Oliva Martinez, ERIKA [address] [place] [address] Other Social History Tobacco Use Types Packs/Day [...] encounter Miscellaneous Notes * Telephone Encounter - Oliva Martinez MS CCC-POSITION CLASSIFICATION MANAGER - 03/22/2020 1629 EDT Called Ever at Ynes's request to let him know that she has a hematology appointment tomorrow at 11:30am. I told him that Ynes also requested that I call him after the appointment tomorrow to fill him in on what happened and he verbalized understanding. Oliva Martinez M.S., CCC-POSITION CLASSIFICATION MANAGER 03/22/2020 16:34 documented in this encounter Plan of Treatment Upcoming Encounters Date Type Department Care Team (Late st Contact Info) Description 03/04/2025 14:00 EDT Telemedicine [facility] Neurology Clinic [address] [place] [address] Brayan Polk MD [address] [facility] [address] [place] [phone] 07/14/2025 14:30 EDT Office Visit [facility] Cancer Center Hematology & Oncology - [address] [phone] Evin Maria MD [address] [place] [address], [facility] [address] [place] [address] documented as of this encounter Visit Diagnoses Not on filedocumented in this encounter Care Teams Brick Setter Operator Relationship Specialty Start Date End Date Alejandrina Carrillo PA-C [address] [place] [address] PCP - General 04/07/19 07/05/20 documented as of this encounter
--- OUTSIDE RECORDS SUMMARY | 2024-12-03 16:02 | XMS_ITS | Encounter Summary ---
Author Organization [facility] Address [address] [place] [address] Care Team Providers Care Middle Stitcher Name Role Phone Alejandrina Carrillo PA-C Primary Care Provider +1- [phone] Reason for Visit * Reason Onset Date Comments New/Evolving Symptoms 03/18/2020 Encounter Details Date Type Department Care Team (Late st Contact Info) Description 03/18/2020 [facility]phone [facility] [address] [place], [place] [address] Antonieta Pickett MD [address] [place], [place] [address] New/Evolving Symptoms Social History Tobacco Use Types [...] encounter Miscellaneous Notes * Telephone Encounter - Antonieta Pickett MD - 03/18/20202012 EDT Entered in error. documented in this encounter Plan of Treatment Upcoming Encounters Date Type Department Care Team (Late st Contact Info) Description 03/04/2025 14:00 EDT Telemedicine [facility] Neurology Clinic [address] [place] [address] Brayan Polk MD [address] [place] [address]-[address] [place] [address] 07/14/2025 14:30 EDT Office Visit [facility] Cancer Center Hematology & Oncology - [address] [phone] Evin Maria MD [address] [place] [address], [address] [place] [phone] documented as of this encounter Visit Diagnoses Not on filedocumented in this encounter Care Teams Middle Stitcher Relationship Specialty Start Date End Date Alejandrina Carrillo PA-C [address] [address] PCP - General 04/07/19 07/05/20 documented as of this encounter
--- OUTSIDE RECORDS SUMMARY | 2024-12-03 16:02 | XMS_ITS | Encounter Summary ---
Author Organization [facility] Address [address] [place] [address] Care Team Providers Care Multimedia Production Assistant Name Role Phone Alejandrina Carrillo PA-C Primary Care Provider +1- [phone] Encounter Details Date Type Department Care Team (Latest Contact Info) Description 03/18/2020 Travel Social History Tobacco Use Types Packs/Day [...] 03/02/2020 16:00 J CARLOST Julissa Nunez RN documented as [...] Contact Info) Description 03/04/2025 14:00 EDT Telemedicine [facility] Neurology Clinic [address] [place], [place] [phone] Brayan Polk MD [address] [facility] [address] [place] [address] 07/14/2025 14:30 EDT Office Visit [facility] Cancer Center Hematology & Oncology - [address] [address] Evin Maria MD [address] [place] [address], [facility], [address] [place] [address] documented as of this encounter Visit Diagnoses Not on filedocumented in this encounter Care Teams Multimedia Production Assistant Relationship Specialty Start Date End Date Alejandrina Carrillo PA-C [address] [place] [address] PCP - General 04/07/19 07/05/20 documented as of this encounter
--- OUTSIDE RECORDS SUMMARY | 2024-12-03 16:04 | XMS_ITS | Encounter Summary ---
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 Referral ID Status Reason Start Date Expiration Date Visits Re quested Visits Authorized [id number] 1 1 Encounter Details Date Type Department Care Team (Late st Contact Info) Description 02/16/2020 14:50 EDT Ancillary Procedure Vascular Surgery and Endovascular Therapy - [facility] [address] [place], [place] [phone] Brayan Plummer MD [address] [place] [phone] Toni Gilbert MD 111 [facility] 1 [place] [phone] Amber Greene MD 1 [facility] [address] [place] [phone] Michelet Paz MD [address] [place] [phone] Social History Tobacco Use Types Packs/Day Years [...] 14:29 EDT documented as of this encounter Plan of Treatment Upcoming Encounters Date Type Department Care Team (Late st Contact Info) Description 03/04/2025 14:[address] [facility] Neurology Clinic [address] [place] [address] Brayan Polk MD [address] [facility] [address] [place] [address] 07/14/2025 14:30 EDT Office Visit [facility] Cancer Center Hematology & Oncology - [address] [phone] Evin Maria MD [address] [place] [address], [address] [place] [address] documented as of this encounter Procedures Procedure Name Priority Date/Time Associated Diagnosis Comments US UPPER VENOUS DUPLEX (DVT) BILATERAL Routine 02/16/2020 16:11 EDT documented in this encounter Results * US UPPER VENOUS DUPLEX (DVT) BILATERAL (02/16/2020 16:11 EDT) Anatomical Region Laterality Modality Vascular Ultrasound Narrative 02/18/2020 8:20 EDT ?Positive for acute deep and superficial vein thrombosis in the left upper extremity. ?Positive for acute superficial vein thrombosis in the right upper extremity. Negative for deep vein thrombosis in the right upper extremity. ?Critical results given to Dr. D'agostino at 16:10 on 02-16-20 Left Upper Venous The left brachial vein was non-compressible and was hypoechoic in the distal segment. Right Upper Superficial Venous The right cephalic vein in the distal upper arm was partially compressible and had mixed density. Left Upper Superficial Venous The left cephalic vein in the distal upper arm was non-compressible and was hypoechoic. The left median cubital vein was dilated, was non-compressible and was hypoechoic. Venous HPI and Indications PE. Venous Past Medical History Tobacco use and CVA. S/P craniectomy Right Upper Venous Other All other visualized veins in the right upper extremity demonstrated normal compressibility with no intraluminal echoes present. Left Upper Venous Other All other visualized veins in the left upper extremity demonstrated normal compressibility with no intraluminal echoes present. us Aníbal Leon MD IMG VASCULAR ORDERABLES Final Result documented in this encounter Visit Diagnoses Not on filedocumented in this encounter Care Teams Video Technician Relationship Specialty Start Date End Date Alejandrina Carrillo PA-C [address] [place] [address] PCP - General 04/07/19 07/05/20 documented as of this encounter
--- OUTSIDE RECORDS SUMMARY | 2024-12-03 16:04 | XMS_ITS | Encounter Summary ---
Author Organization [facility] Address [address] [place] [address] Care Team Providers Care Windows Administrator Name Role Phone Alejandrina Carrillo PA-C Primary Care Provider [phone]- [phone] Reason for Visit * Reason Onset Date Comments Other 02/17/2020 Encounter Details Date Type Department Care Team (Late st Contact Info) Description 02/17/2020 Telephone [facility] Adult Neurology - [facility] [address] [place] [address] Cecelia Rosario, DO [address] [phone] Other Social History Tobacco Use Types Packs/Day [...] 14:29 EDT documented as of this encounter Miscellaneous Notes * Telephone Encounter - Dionna Menjivar MA - 03/01/2020 1228 EDT Med list received, and medications have been updated in patient chart based on list. Fax has been sent to Him. * Telephone Encounter - Chyna Moon - 02/17/2020 1014 EDT [place], nurse, calling asking for fax # for Dr Rosario so she can fax med list for patient. Gave fax# documented in this encounter Plan of Treatment Upcoming Encounters Date Type Department Care Team (Late st Contact Info) Description 03/04/2025 14:00 EDT Telemedicine [facility] [address] [place], [place] [id number] Brayan Polk MD [address] [facility] [address] [place] [address] 07/14/2025 14:30 EDT Office Visit [facility] Cancer Center Hematology & Oncology - [address] [phone] Evin Maria MD [address] [place] [address], [facility], [address] [place] [phone] documented as of this encounter Visit Diagnoses Not on filedocumented in this encounter Historical Medications * This list may reflect changes made after this encounter. ibuprofen (MOTRIN) 200 mg tablet Take 200 mg by mouth every 6 hours as needed for Pain. 03/02/2020 OLANZapine (ZYPREXA) 5 mg tablet Take 5 mg by mouth daily. 03/31/2020 folic acid (FOLVITE) 1 mg tablet Take 1 mg by mouth daily. 03/31/2020 VITAMIN B COMPLEX-100 ORAL Take by mouth daily. 03/31/2020 added in this encounter Care Teams Windows Administrator Relationship Specialty Start Date End Date Alejandrina Carrillo PA-C [address] [facility] [place] [address] PCP - General 04/07/19 07/05/20 documented as of this encounter
--- OUTSIDE RECORDS SUMMARY | 2024-12-03 16:04 | XMS_ITS | Encounter Summary ---
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 Referral ID Status Reason Start Date Expiration Date Visits Re quested Visits Authorized [id number] 1 1 Encounter Details Date Type Department Care Team (Late st Contact Info) Description 02/16/2020 14:40 EDT Ancillary Procedure Vascular Surgery and Endovascular Therapy - [facility] [address] [place], [place] [phone] Brayan Plummer MD [address] [place] [phone] Toni Gilbert MD [address] [facility] [address] [place] [phone] Amber Greene MD 1 [facility] 2 [place] [address] Michelet Paz MD [address] [place] [phone] Social History Tobacco Use Types Packs/Day Years [...] Contact Info) Description 03/04/2025 14:00 EDT Telemedicine [facility] Neurology Clinic [address] [place] [address] Brayan Polk MD [address] [facility] [address] [place] [phone] 07/14/2025 14:30 EDT Office Visit [facility] Cancer Center Hematology & Oncology - [address] [phone] Evin Maria MD [address] [facility] [place], [facility], [address] [place] [phone] documented as of this encounter Procedures Procedure Name Priority Date/Time Associated Diagnosis Comments US LOWER VENOUS DUPLEX (DVT) BILATERAL STAT 02/16/2020 16:05 EDT Stroke ([facility]) Pulmonary embolism ([facility]) documented in this encounter Results * US LOWER VENOUS DUPLEX (DVT) BILATERAL (02/16/2020 16:05 EDT) Anatomical Region Laterality Modality Vascular Ultrasound Narrative 02/18/2020 8:20 EDT ?No evidence of deep or superficial venous thrombosis in the left lower extremity. ?Acute superficial vein thrombosis noted in the right lower extremity; no evidence of deep venous thrombosis on the right. Critical Findings Clinically significant venous thrombus. First reported to Nurse Pat by TF on 02/16/2020 at 16:12 EDT. Correct read-back was verified. Right Saphenous Venous The knee segment of the great saphenous vein was dilated, was non-compressible and was hypoechoic.The below knee segments of the right greater saphenous vein was partially compressible and had mixed density. Right Lower Venous Other All other visualized veins in the right lower extremity demonstrated normal compressibility with no intraluminal echoes present. Left Lower Venous Other The left external iliac, common femoral, proximal greater saphenous, proximal profunda femoris, femoral, popliteal, peroneal, and posterior tibial veins demonstrate normal Doppler flow/waveforms and compression. Venous HPI and Indications PE. Concern for DVT with hypercoagulable state, eval for possible IVC filter. Venous Past Medical History Tobacco use, Obesity, CVA, Anticoagulation therapy and Hypercoaguable state. Antonieta Pickett MD [facility] VASCULAR ORDERABLES Fi nal Result documented in this encounter Visit Diagnoses Not on filedocumented in this encounter Care Teams Planer Operator / Grader Relationship Specialty Start Date End Date Alejandrina Carrillo PA-C [address] [place] [phone] PCP - General 04/07/19 07/05/20 documented as of this encounter
--- OUTSIDE RECORDS SUMMARY | 2024-12-03 16:04 | XMS_ITS | Encounter Summary ---
Author Organization [facility] Address [address] [place] [address] Care Team Providers Care Cap Sizer Name Role Phone Alejandrina Carrillo PA-C Primary Care Provider [phone] Reason for Visit * Reason Comments Altered Mental Status Pt transfer from [facility] with diagnosis of L temporal/parietal bleed. Per report, found by boyfriend altered and vomiting, complaining of QUINONES. 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 * Auth/Cert Specialty Diagnoses / Procedures Referred By Mitch pruett Referred To Contact Diagnoses Cerebral venous thrombosis Cerebral venous sinus thrombosis ICB Referral ID Status Reason Start Date Expiration Date Visits Re quested Visits Authorized [id number] 1 1 Encounter Details Date Type Department Care Team (Late st Contact Info) Description 02/14/2020 16:23 EDT - 03/02/2020 12:55 EDT Hospital Encounter [facility] [address] [place] [address] Brayan Plummer MD [address] [place] [phone] Toni Gilbert MD [address] [facility] [address] [place] [address] Amber Greene MD 1 [facility] 2 [place] [phone] Michelet Paz MD [address] [place] [address] Claus Piña MD [address] [facility], Level [address] [place] [phone] Cerebral venous thrombosis (Primary Dx); Intraparenchymal hemorrhage of brain (HCC-CMS); Brain herniation (HCC-CMS); Stroke (HCC-CMS); Pulmonary embolism (HCC-CMS); Cerebral edema (HCC-CMS); Cerebral venous sinus thrombosis; Single subsegmental pulmonary embolism without acute cor pulmonale Discharge Disposition: Home-Health Care Svc Social History [...] 14:29 EDT documented as of this encounter Last Filed Vital Signs Vital Sign Reading Time Taken Comments Blood Pressure 116/71 03/02/2020 0909 EDT Pulse 101 02/28/2020 1800 EDT Temperature 35.9 ??C (96.6 ??F) 03/02/2020 0909 EDT Respiratory Rate 16 03/02/2020 0909 EDT Oxygen Saturation 94% 03/02/2020 0909 EDT Inhaled Oxygen Concentration - - Weight 89.9 kg (198 lb 1.6 oz) 03/02/2020 0657 E DT Height 170.2 cm (5' 7) 02/15/2020 1500 EDT Body Mass Index 31.03 02/15/2020 1500 EDT documented in this encounter Functional Status * Are you deaf or do you have serious difficulty hearing? Answer Date of Assessment Author No 02/22/2020 15:00 EDT SummitDanilo phelps RN * Are you blind or do you have serious difficulty seeing, even when wearing glasses? Answer Date of Assessment Author No 02/22/2020 15:00 EDDanilo Mark RN * Do you have serious difficulty walking or climbing stairs? (5 years old or older) Answer Date of Assessment Author No 02/22/2020 15:00 EDDanilo Mark RN * Do you have difficulty dressing or bathing? (5 years old or older) Answer Date of Assessment Author No 02/22/2020 15:00 EDT Danilo Walker RN * Because of a physical, mental, or emotional condition, do you have difficulty doing errands alone such as visiting a doctor's office or shopping? (15 years old or older) Answer Date of Assessment Author No 02/22/2020 15:00 EDDanilo Mark RN documented as of this encounter Mental Status * Because of a physical, mental, or emotional condition, do you have serious difficulty concentrating, remembering, or making decisions? 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 *Cerebral venous thrombosis 02/14/2020 ??? Brain herniation ([facility]) 02/17/2020 ??? Cerebral edema ([facility]) 02/17/2020 ??? 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 Principal Procedure: Left sided craniectomy and hematoma evacuation (Dr. Piña, 02/16/20) Hospital Course 50 y.o. woman with a past medical history significant for anxiety/depression and tobacco use disorder who presented to [facility] with headache and expressive aphasia, CT demonstrating left fronto-temporoparietal bleed prompting transfer with Neurology and Neurosurgery consultation. CTV demonstrated venous thrombosis of left IJ, sigmoid, and transverse sinus. Heparin drip initiated with initially stable repeat HCT. Of note found to have segmental RUL acute pulmonary embolism 02/14 without evidence of right heart strain on ECHO and acute deep and superficial vein thrombosis in the left upper extremity 02/15. HD3 patient demonstrated neurologic decline with right hemiparesis and worsened aphasia, found to have expanded hemorrhage requiring craniectomy and evacuation of IPH 02/16/20. Postoperatively gradually neurologically improved and transitioned to heparin DVT ppx dose, PEG placed 02/17, able aniket extubated 02/18. Transferred to floor 02/22. Remained on floor pending restart of anticoagulation with full dose lovenox POD14 (03/01) and work with therapies, demonstrating gradual neurologic improvement. Repeat CTV 02/24 with improvement in left transverse and sigmoid sinus thrombosis, however with slight progression of vein of Kristen thrombosis. At time of discharge able to ambulate with assistance, mixed aphasia present but improving. Able to communicate basic needs. Requiring 1:1 sitter given p ersistent impulsiveness consistent with frontal lobe damage. During admission hematology and neurology consulted for hypercoagulability workup and treatment. Duration of suggested anticoagulation unclear, follow up ordered in neurology clinic. Per notes: - Factor V leiden negative, cardiolipin antibody negative, protein S 150 (high) and C 55 (low), lupus anticoagulant cascade pending, and beta 2 glycoprotein negative During the hospital stay, the patient was evaluated by physical and occupational therapy. They recommended acute rehab. Per RATING CLERK advanced to dysphagia 4 diet with thin liquids. Of note patient incidentally seen to have 1.3cm low density left liver lesion for which liver ultrasound was recommended. Ultrasound suggestive of simple hepatic cyst and mild hepatic steatosis with borderline hepatomegaly. The patient's incision was closed with ghassan, which can be removed 03/03. Allergies and Immunizations Allergies Allergen Reactions ??? Citalopram Other reaction(s): increased anxiety ??? Duloxetine Other reaction(s): increased anxiety ??? Pregabalin Other reaction(s): dizziness ??? Zolpidem Other reaction(s): sleep walking with over 5 mg There is no immunization history on file for this patient. Transition of Care Plans Condition at Discharge Fair Prognosis: good Assessment at Discharge Vital signs: Patient Vitals for the past 12 hrs: BP Heart Rate Resp Temp SpO2 O2 Device 03/02/20 0909 116/71 101 BPM 16 35.9 ??C (96.6 ??F) 94 % None 03/02/20 0639 122/72 (!) 107 BPM 16 35.8 ??C (96.4 ??F) 95 % None 03/02/20 0232 120/76 103 BPM 18 35.6 ??C (96.1 ??F) 95 % None Brain: Anticoagulation: Yes Seizure medications: no Steroids: no Test results still pending from this admission None Imaging Required Yes Modality: CT Interval: 1 month Last Lab Results at Discharge BUN: Lab Results Component Value Date BUN 20 03/02/2020 Creatinine: Lab Results Component Value Date CREATININE 0.45 (L) 03/02/2020 CBC: Lab Results Component Value Date WBC 6.43 03/02/2020 RBC 4.10 03/02/2020 HGB 13.2 03/02/2020 HCT 39.6 03/02/2020 MCV 97 03/02/2020 MCH 32.2 03/02/2020 MCHC 33.3 03/02/2020 PLT 462 (H) 03/02/2020 DIFFTYPE Auto 02/14/2020 Electrolytes: Lab Results Component Value Date NA 134 (L) 03/02/2020 K 4.8 03/02/2020 CL 102 03/02/2020 CO2 22 03/02/2020 HGB: Lab Results Component Value Date HGB 13.2 03/02/2020 Discharge Follow Up Follow-up appointments and procedures Amb Consult/Follow Up Hematology Reason for Request: fu hypercoagulability Expected Discharge Date (Inpatient Only): 02/29/2020 Authorizing Provider: Parag Eid MD Amb Consult/Follow Up Neurosurgery Reason for Request: fu crani for IPH secondary to venous infarct Expected Discharge Date (Inpatient Only): 02/29/2020 Authorizing Provider: Parag Eid MD Amb Consult/Follow Up Neurology Reason for Request: hospital f/u Expected Discharge Date (Inpatient Only): 02/25/2020 Authorizing Provider: Moraima Munguia MD Follow-up labs and tests CT HEAD VENOGRAM W CONTRAST Complete by: April 01, 2020 (Approximate) Process Instructions: Creatinine drawn [...] Fortamet, Actoplus-met, Janumet, and Glumetza Authorizing Provider: Parag Eid MD CT HEAD WO CONTRAST Complete by: April 01, 2020 (Approximate) Process Instructions: Creatinine drawn [...] Fortamet, Actoplus-met, Janumet, and Glumetza Authorizing Provider: Parag Eid MD ERIN D'AGOSTINO, MD 03/02/2020 10:04 documented in this encounter Medications at Time [...] daily. 0 documented as of this encounter Ordered Prescriptions Prescription Sig Dispense Quantity Refills Last Filled Start Date End Date senna (SENOKOT) 8.6 mg tablet Take 1 Tab by mouth 2 times daily. 03/02/2020 0 pantoprazole (PROTONIX) 40 mg tablet Take 1 Tab by mouth daily for 28 days. 28 Tab 03/03/2020 0 ondansetron, PF, (ZOFRAN) 4 mg/2 mL solution Inject 2 mL into the vein every 4 hours as needed for Nausea. 1 Vial 03/02/2020 0 nicotine (NICODERM CQ) 7 mg/[address] 1 Patch onto the skin every 24 hours for 28 days. 28 Patch 03/03/2020 0 Multivitamins with minerals + ferrous gluconate (CENTRUM) 9 mg iron/15 mL liquid oral solution 15 mL by per g tube route daily for 28 days. 420 mL 03/03/2020 0 melatonin 3 mg tablet Take 1 Tab by mouth at bedtime. 03/02/2020 0 lisinopriL (PRINIVIL) 20 mg tablet Take 1 Tab by mouth daily for 28 days. 28 Tab 03/03/2020 0 guaiFENesin 200 mg tablet Take 1 Tab by mouth every 6 hours as needed for Other (wet cough). 15 Tab 03/02/2020 0 enoxaparin (LOVENOX) 100 mg/mL syringe Inject 90 mg into the skin every 12 hours for 28 days. 51 Syringe 03/02/2020 0 docusate (COLACE) 50 mg/5 mL liquid Take 10 mL by mouth 2 times daily. 03/02/2020 0 calcium carbonate (TUMS) 200 mg calcium (500 mg) tablet,chewable Take 1 Tab by mouth 4 times daily as needed for Heartburn. 03/02/2020 0 aspirin chewable 81 mg tablet Take 1 Tab by mouth daily. 03/03/2020 0 amino acids-protein hydrolysate (PRO SOURCE NOCARB) 15-60 gram-kcal/30 mL packet 60 mL by feeding tube route 2 times daily for 14 days. 56 Packet 03/02/2020 0 acetaminophen (TYLENOL) 500 mg tablet Take 2 Tabs by mouth every 6 hours. 03/02/2020 0 documented in this encounter Discharge Disposition Disposition Code Departure Means Destination Home-Health Care [facility] documented in this encounter Progress Notes * Trish Ponce, OT - 03/02/2020 1218 EDT [facility] Rehabilitation Therapy Acute Therapies [facility] - Occupational Therapy Discontinue/Discharge Note Date of Service: 03/02/2020 Precautions:Activity: Activity as tolerated, Ambulate Equipment: Helmet on when OOB(bone flap precautions) Vital signs/cardiac precautions: Vital sign specific precautions Specific vital sign precautions: Notify MD if: SBP is less than 90 or greater than 180 mmHg. Treat for SBP > 160 mmHg Subjective/Objective SUBJECTIVE: N/A OBJECTIVE: Interventions completed today: Intervention included: No interventions today Patient has been seen in occupational therapy from 02/24/20 to 03/02/20. The patient has been seen by an Occupational therapist Please refer to the occupational therapy notes for specifics on the patient's functional status andtreatment sessions. Relevant Objective Findings: Body Functions and Performance Skills: Mental Functions: Arousal/Alertness: Alert, Delayed responses to stimuli, Inconsistent responses to stimuli during evaluation . As of last OT session: Patient intermittently able to spontaneously verbalize clear short sentences but upon direct questions often unable to understand. Patient unable to answer any orientation questions even with choices provided Patient impulsive and needs cues for redirection but was able to follow all verbal commands throughout session Orientation Level: Oriented to person Insight: Impaired Judgement: Impaired Voice function: at times patient able to verbalize clearly in short phrases, patient responses are more clear when she spontaneously speaks vs to closed ended questions, which is unintelligible ~ 50%of the time ?? Sensory Functions: ?? Touch: Not evaluated secondary to patient unable to participate in formal sensory testing but lighttouch sensation appears intact Vision: difficult to formally assess due to cognitive deficits, min cues needed with self care location of items, will need a more formal screening once patient able to participate. Hearing: able to understand conversational tones ?? Neuro musculoskeletal and Movement Related Functions: ?? Range of motion: UE/LE functionally noted with no gross defits Strength: not formally tested due to initial cognitive deficit with inability to follow direct instructions. Patient is demonstrating the ability to more all extremities against gravity ?? Skin and Related Structure Functions: Skin Integrity Location: Head Wounds Wound Type: Surgical incision, CDI ?? Areas of Occupation and Performance Skills: Basic Activities of Daily Living:?? Feeding: demonstrates adequate range to complete, anticipate supervision and min cues. Toileting: Supervision toilet transfer tenths due to decreased safety awareness and intermittent mild loss of balance. Cues needed for safe walker placement and management in bathroom. Cues provided for patient to wash hands after toileting task. Cues needed to locate necessary items to complete task. Functional mobility: Supervision seated edge of bed patient able to maintain but required supervision to maintain safety 1:[address] at end of the session Grooming: Presented patient with 2 brush with paste applied patient today thoroughly able to brush teeth manage task with [id number] instructions. Dressing: provded patient with pants as patient was indicating that she wanted some pants initial pants were too small asked patient if she wanted larger pair she nodded yes. Overall supervision provided with 1 time of min contact assistance in order to properly don through right leg. Cues were needed for safety and management of pants to stand on pant leg which was provided x2. Assessment/Plan ASSESSMENT: Keny was appropriate for occupational therapy due to functional deficits resulting from recent craniectomy for hematoma evacuation on 02/16/20. She presented with impairments of decreased activity tolerance, balance, safety awareness, language and cognitive skills. Patient demonstrated progress with her ability to follow simple instructions but with consistent cues to keep on task as well as complete them safely. Functionally patient participated in self care tasks with supervision to min contact assist. Patient does remain well below his baseline and appropriate for Acute rehab in order to provide the intensity of therapy in order to maximize her prior level of functi on. Goals have been discontinued in this setting. GOALS: Short Term Goals: n/a ?? Barbering Instructor Goals:- discontinue goals in this setting [facility] Goals Time Frame: 2-3 weeks Barbering Instructor Goal 1 Goal: patient will consistently follow 2 step instructions with min cues Barbering Instructor Goal 2 Goal: Patient will consistently be oriented x3 with use of visual aid Barbering Instructor Goal 3 Goal: Patient will demonstrate proper safety awareness with self-care task with min cues [facility] Goal 4 Goal: Patient will complete upper body self-care with supervision Barbering Instructor Goal 5 Goal: Patient will complete lower body self-care tasks with min cues [facility] Goal 6 Goal: Patient will complete toilet/commode transfer with supervision PLAN: Discontinue occupational therapy at [facility] acute care. Recommended Discharge Destination: Acute rehabilitation Recommended Discharge Services: Occupational therapy at rehabilitation facility Recommended Discharge Equipment: To be determined by next care provider Pager: [phone] TRISH PONCE OT, 03/02/2020, 12:19 * Evelyn Galindo, PT - 03/02/2020 1017 EDT [facility] Rehabilitation Therapy Acute Therapies [facility] Physical Therapy Discontinue/Discharge Note Date of Service: 03/02/2020 Precautions: activity as tolerate, josselin when out of bed SUBJECTIVE: N/a patient discharged to Acute rehab OBJECTIVE: Intervention Completed Today: No treatments rendered today due to: None, patient discharged to Acute rehab Team Communication: Patient has been seen in physical therapy since 02/15/2020 In this reporting period 02/15/2020 to 03/02/2020 the patient has been seen by a physical therapist. Please refer to the physical therapy notes for specifics on the patient's functional status and treatment sessions. Relevant objective findings: AROUSAL, ATTENTION, AND COGNITION: See below MUSCLE PERFORMANCE: See below BALANCE, MOBILITY, AND GAIT: See below Patient found in bed with one-to-one sitter present ?? Patient talking about things that are not in context of the situation ?? Patient rubbing her head and moaning ?? With encouragement patient participated in physical therapy ?? Supine to sit to patient's right minimal contact assist of 1 ?? Sitting on edge of bed close supervision PT placed helmet on patient ?? Sit to stand from edge of bed to rolling walker minimal contact assist ?? Patient ambulated 150 feet 2 times with rolling walker minimal contact assist with close wheelchairfollow ?? Patient is impulsive and needs verbal cues for safety however does not seem to understand verbal commands seems to understand tactile commands better ?? Sit to supine supervision ASSESSMENT: Physical therapy services in this setting have been discontinued secondary to: Patient has been or will be discharged from the hospital Physical Therapy Diagnosis: This patient admitted for cerebral venous thrombosis resulting in Acuteintra-axial hemorrhage left temporal and frontal lobes approximately 5.8 by 3.5 by 4.8 cm. Associated subarachnoid hemorrhage over the left hemisphere. ?? Patient now presents with a physical therapy diagnosis of Impaired functional mobility with overallimpaired strength/deconditioning, impaired motor planning, impaired cognition with aphasia, impaired functional balance, and impaired activity tolerance/aerobic capacity. Patient will continue to benefit from skilled physical therapy to address these impairments which are likely related to pt's co-morbidities and recent acute intra-axial hemorrhage left temporal and frontal lobes. ?? Physical Therapy Prognosis:?? Patient continues to have overall cognitive deficits with global aphasia which is her main limitingbarrier. Today patient was able to tolerate ambulation in hallways further distances does continue to have some weakness on the right side but much improved. Continue to recommend acute rehab. Other limiting barriers as patient is impulsive and with decreased safety awareness. Patient was making progress towards goals, but not met. ?? Short-Term Goals: N/A ?? Long-Term Goals: Time Frame: < 2-3 weeks (all goals discontinued) Goal: Patient will be independent with all bed mobility Goal: Patient will require supervision or less with all functional transfers Goal: Patient will ambulate greater than 100 feet with least restrictive assistive device with supervision or less and without loss of balance Goal: Escobar balance score greater than 48 Goal: Gait speed greater than 0.5 m/s with or without assistive device Goal: Patient will negotiate stairs per home set up if indicated with minimal contact assist of 1 or less Goal: MSAS greater than 26 Goal: All above with heart rate greater than 60 but less than 130; SBP greater than 90 but less than 140; SPO2 greater than 92% on room air, all with activity ?? PLAN: D/C Physical Therapy Recommended Discharge Destination: Acute rehabilitation Recommended Discharge Services: Physical therapy at rehabilitation facility Recommended Equipment Needs: To be determined by next care provider Other recommendations: No other consults recommended at this time Pager: [phone] Evelyn Galindo, PT 03/02/2020 10:17 * Kisha Prasad RN - 03/02/2020 0944 EDT [facility]patient Acute Rehabilitation Unit Pre-Admission Screening Name: Ynes White : 1970 Age: 50 y.o. Sex: female Payer: Medicaid Rehab Admission Date: 03/02/2020 Rehab Unit: Rehab 2 From: [id number] Arriving via [facility] Time: 1300 Height: 170.2 cm (67) Weight : 87.1 kg (192 lb) Body mass index is 30.07 kg/m??. Admit W/C: Standard, Regular foot rests - needs seat belt. Bed to wheelchair transfers for transfer: with minimal assist, with assist of 1 helper and with walker Immediate Rehab Needs: Precautions: Bone flap; needs a helmet when out of bed. High fall risk. Aspiration risk. Bleeding risk. Safety/Behavior: 1:1 sitter due to impulsivity/agitation. A&Ox1. Lines/Tubes: Gastrostomy tube to abdomen. Special Bed or Equipment Needs: 1:1 sitter. Bed/chair alarm. Additional needs (cultural, dietary, communication): none Speech and Language Pathology Primary Rehab Diagnosis: BI Non-Traumatic Hx of Present Illness & Complications: 50F with tobacco use, cerebral venous thrombosis and intraparenchymal hemorrhage in left frontotemporal area. ??Initially admitted to Neurosurgery for close monitoring and heparin drip. Initial head??CT at therapeutic dose was stable, but repeat head CT 02/16 demonstrating enlarged hemorrhage with coinciding decreased right sided movement and subsequent dilation of left pupil prompting hypertonic bolus, heparin reversal, mannitol, and OR for emergent Left sided craniectomy and hematoma evacuation. Later found to have acute deep and superficial vein thrombosis in the left upper extremity, on lovenox DVT ppx dosing. Now status post PEG placement. Repeat CTV with improvement in left transverse and sigmoid sinus thrombosis, however with slight progression of vein of Kristen thrombosis. Now on therapeutic lovenox. Anticoagulation plan per Hematology.(Dr. Banks) Acute Admission Date: 02/14/2020 Expected length of stay: 2-3 weeks. Ongoing Medical Concerns: Patient Active Problem List Diagnosis ??? Back pain ??? Chronic low back pain ??? Encounter for insertion or removal of intrauterine contraceptive device ??? Nicotine dependence, unspecified, uncomplicated ??? Perimenopausal ??? Post concussion syndrome ??? Tobacco abuse ??? Cerebral venous sinus thrombosis ??? Cerebral venous thrombosis ??? Brain herniation (HCC-CMS) ??? Cerebral edema (HCC-CMS) Past Medical History: History reviewed. Postconcussive syndrome and tobacco abuse Pre-Hospital Living Setting and Support System: Lives in an apartment in [place], [place] Services prior to admission: none Prior Level of Function: Ambulated: independently Completed Self-care: independently Current Functional Status: Care Management: Pain Management: ongoing assessment and monitoring. Tylenol/Dilaudid for incisional pain / headaches. ,, Bladder: Continent, voiding. Assist with set up and hygiene. , Bowel: Bowel regimen senna/colace. LBM 03/01. Medication Management: dependent on administration. Therapeutic Lovenox . Respiratory/Airway Management: extubated 02/23. Ongoing assessment of lung sounds. Nutritional deficits: Dysphagia 4 diet with thin liquids. Poor PO intake. G-tube with bolus tube feedings stopped 03/01. Nutrition to follow for continued need. Safety: Helmet when out of bed. Bone flap precautions. Impulsive and agitated at times. 1:1 sitter for safety. Functional mobility: minimal assist x1 and Mental Status: alert and oriented to person. Expressive and receptive aphasia. Use pictures and gestures for communication. Transfers: with minimal assist, with assist of 1 helper and with walker Locomotion: From: wheelchair level with minimal assist and with device Self-care: with minimal assist IADLs: Deficits below baseline with:, meal preparation, home management, money management, community management and driving Swallowing: Deficits below baseline with dysphagia, oropharyngeal phase?? Communication: Deficits below baseline with expressive and receptive aphasia. Most of her expressive language consists of nonsensical word salad/jargon. Cognition: Deficits below baseline with confusion, impulsive and with decreased safety awareness. Social/Emotional: Agitated, Impulsive, Confused and Adjustment Issues Rehab Eligibility Assessment: Conditions that caused the need for rehabilitation: Patient has had a significant decline in function as the result of BI Non-Traumatic . Need for Close Medical Supervision: An acute inpatient rehab setting is medically necessary to monitor and manage the Ongoing Medical Concerns listed above and to develop and oversee the plan of carefor Current Functional Deficits also listed above. Active Multi-Disciplinary problems: ?? High Fall Risk: (02/14/20) ?? SKIN INTEGRITY (02/14/20) ?? Pressure Ulcer Prevention (02/14/20) ?? Daily Care Plan Goals (02/14/20) ?? Sensory: (02/19/20) Left intracranial hemorrhage. Status post left hemicraniectomy and evacuation of intraparenchymal hemorrhage. DVT/pulmonary embolism. Cerebral vein thrombosis. Anticoagulation. Percutaneous gastrostomy with bolus tube feedings. Hyponatremia. Lab monitoring. Hypertension. Smoking cessation. Post operative pain control. Altered mental status. Risk for Clinical Complications: Ynes is at Low risk for medical complications from these medical issues, impacting ability to participate in the rehabilitation program. Rehab Potential: Ynes has realistic goals and good rehab potential. Patient's condition is sufficiently stable at the time of admission to allow this patient to actively participate in and tolerate an acute intensive rehabilitation program. Appropriate Therapy Needs: Rehab Nursing , Occupational Therapy , Physical Therapy , Speech and Language Pathology , Medical Psychology and Social Work including patient/caregiver education and DME recommendations and training. Expected Frequency and Duration of Treatment: Anticipate patient will be able to tolerate an acute rehab level intensity of care and for a total of 3 hours per day, 5 days per week, and be expected to make measurable improvement that will be of practical value to improve Ynes White's functional capacity or adaptation to impairments. Expected level of improvement: Expect Ynes to complete functional mobility independently and with device and complete self-care independently at discharge. Patient/Family Rehabilitation Goals: Patient/family education regarding Acute Rehab program provided. Patient/family report willingness and motivation to participate. Anticipated Discharge: Location: To be determined Support available at discharge: Sister Lucille states that upon d/c, she and brother Ken can provide significant support as well as her boyfriend Ever, they all live close by. Anticipated Post-Discharge Treatments: Home with family support and home health nursing PT,OT, RATING CLERK. Physician Agreement: Co-signature of this note indicates that I have reviewed this pre-admission screening document and concur with the findings. I believe Ynes White meets criteria, is sufficiently medically stable to allow participation in the program and has the medical needs and functional rehabilitation goals that require the complexity and intensity of inpatient rehabilitation. This patient requires an intensive level of therapy, close medical supervision and an interdisciplinary team approach provided through an individualized plan of care; therefore, an admission to the acute inpatient rehab unit is medically necessary. I approve admitting this patient for an intensive, inpatient rehabilitation hospital program. Cosigned by Jaden Rutherford MD at 03/02/2020 12:51 EDT * Kisha Prasad RN - 03/02/2020 0935 EDT [facility] Inpatient Acute Rehabilitation Unit on the [facility] Eligible: Patient is determined to be Eligible for an Acute Inpatient Rehabilitation level of care based on his/her payer criteria Patient has accepted bed offer at the Acute Inpatient Rehabilitation Unit at [facility], located on the [facility]. Refer to IP Rehab Pre-Admission Assessment Note in Inpatient Rehabilitation Medical record for further details. Rehab Admission Date: 03/02/2020 Transportation: [facility] Rehab Admission Time: 1300 Rehab Floor/Number for Report: Rehab 2 ([id number]) * Abena Haskins - 03/02/2020 0920 EDT IP PARALEGAL DISCHARGE NOTE: DISCHARGE DATE/TIME: Today 03/[address] OF DISCHARGE: [facility] Acute Rehab MODE OF TRANSPORT: [facility] SIGNED (Y/): n/a FORMS ON CHART (Y/N): SHANICE CENTENO MD AND NUMBER: Krish TRISTAN REPORT/UNIT: Rehab 2, call [phone] PATIENT AWARE AND IN AGREEMENT OF PLAN: yes FAMILY NOTIFIED (IF APPLICABLE- Y/N): yes, I spoke to sister Stacey vences and she will contact brother Ken, boyfriend Ever and other family. Stacey vences is happy with plan. 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 Piña, 02/16/20) 24/ Temp: [35.4 ??C (95.7 ??F)-37.1 ??C (98.8 ??F)] () Neuro exam stable 1:1 sitter continued MOHSEN overnight Subjective/ No specific complaints elicited. Objective/ BP 120/76 (BP Cuff Location: Left arm, BP Patient Position: Semi fowlers) Pulse 101 Temp 35.6 ??C (96.1 ??F) (Tympanic) Resp 18 Ht 170.2 cm (67) Wt 87.1 kg (192 lb) SpO2 95% BMI 30.07 kg/m?? Eyes open to voice Receptive aphasia - inappropriate, nonsensical answers to orientation questions Gaze conjugate Pupils equal, round, reactive EOMI Fire Chief'S Aide, biceps full bilaterally Quads, hamstrings, gastrocs full bilaterally Incision C/D/I Flap full, soft Assessment/ 50F with tobacco use, cerebral venous thrombosis and intraparenchymal hemorrhage in left frontotemporal area. Initially admitted to Neurosurgery for close monitoring and heparin drip. Initial head CTat therapeutic dose was stable, but repeat head CT 02/16 demonstrating enlarged hemorrhage with coinciding decreased right sided movement and subsequent dilation of left pupil prompting hypertonic bolus, heparin reversal, mannitol, and OR for emergent Left sided craniectomy and hematoma evacuation. Later found to have acute deep and superficial vein thrombosis in the left upper extremity, on lovenox DVT ppx dosing. Now status post PEG placement. Repeat CTV with improvement in left transverse andsigmoid sinus thrombosis, however with slight progression of vein of Kristen thrombosis. Now on therapeutic lovenox. Anticoagulation plan per Hematology, and will discuss timing of safe discharge with Attending, likely today. Plan Q4h neuro checks SBP <160 Appreciate hematology recommendation Appreciate RATING CLERK recommendations Goal Na normonatremia, daily labs Lovenox 90 BID PT/OT Floor, will work toward dispo to Acute Rehab, likely ready today Kevin Rinaldi MD 03/02/2020 5:32 Page [id number] with questions Cosigned by Jerry Merrill MD at 03/02/2020 10:10 EDT * Trish Ponce OT - 03/01/2020 1422 EDT [facility] Rehabilitation Therapy Acute Therapy [facility] Occupational Therapy Contact Note Date of Service: 03/01/2020 Patient not seen in OT today. Per 1:1 patient had a busy morning, assisted with her shower. Patientnow resting. OT will follow-up on 03/03/20 if not d/c to rehab . TRISH PONCE OT, 03/01/2020, 14:22 * Kisha Prasad RN - 03/01/2020 1304 EDT Acute Inpatient Rehabilitation Rehab Referral Review Patient Review: EMR reviewed. and Spoke with Licha Haskins RN- Physician Kevin Rinaldi. Lovenox increased from 90mg daily to BID. Monitoring neurological status during this transition. PLTs [address] - tube feedings discontinued/adjusted? No PO intake documented. 1:1 continued. Referral Status and Assessment: Therapies are recommending. Dr. Rutherford consulted see note 4/3. Follow-up Plan: Will continue to follow daily KISHA PRASAD RN 03/01/2020 12:57 * Isabell Lora CCC-RATING CLERK - 03/01/2020 1234 EDT Speech-Language Pathology Clinical Swallow and Cognitive-Communication Consultation RATING CLERK Diagnosis: Aphasia and Dysphagia, oropharyngeal phase Medical Diagnosis: Cerebral venous thrombosis and resultant intraparenchymal hemorrhage in the leftfrontotemporal area Date of Onset: 02/14/20 Date of Referral: 02/14/20 Date of Service: 03/01/2020 Start Time: 10:45 Total Therapy minutes: 10 minutes Swallow; 20 minutes Communication tx SUBJECTIVE: I don't understand what you are saying. OBJECTIVE: RATING CLERK returns today to provide further diagnostic/therapeutic intervention for dysphagia and communication. Current Diet: PEG, Dysphagia 4 with Thin Liquids (02/23/20) - Per pt's nurse, pt continues with verylittle PO intake. Pt's nurse did report that tube feeds have been somewhat adjusted to try and increase pt's appetite. Diet prior to admission: Suspect Regular Current Status: Cognitive Status: Patient was alert and attempted to complete most tasks presented.After a period of time pt reported feeling tired and overwhelmed and unable to do anything else. Aphasia present. Respiratory Status: Respiratory status was judged to be WFL to support oral feeding. Clinical Swallow Consultation: Positioning: Seen at bedside for session. Consistencies Tested: was assessed with thin liquids and solid food textures. Methods of Delivery: Patient was able to self administer items without RATING CLERK assistance using a straw, her fingers and a fork. Oral Phase Findings: With all textures presented today, pt with adequate oral control, mastication and transit of the bolus during the oral phase of the swallow. Pharyngeal Phase: With all textures presented today, pt with no overt s/s of penetration/aspiration. Esophageal Phase: No signs indicated Compensatory Strategies: Compensatory strategies of slight diet modification and implementation of aspiration precautions appear effective in decreasing risk of aspiration. Speech-Language Function: Auditory Comprehension: Picture Identification: Pt able to identify pictures from a field of 2 with 90% accuracy given max verbal cues. Commands: Pt was not able to follow simple 1 step directions today given max verbal cues Personal questions 0/4 - given multiple choice format and written choice format Verbal Expression: Confrontation Namin/5 given max verbal cues, pt slightly frustrated with task today Automatic Speech tasks - Counting - Given max cues, pt able to inconsistently say a few numbers Singing: Happy Birthday song - Pt unable to do Repetition: Pt able to repeat her name today. She was not able to repeat names of objects or other family members names. Spontaneous utterances: Pt continues to use appropriate and intelligible short social phrases. Other spontaneous utterances consist of jargon. Reading Comprehension: Pt unable to match single words to pictures at this time. Written Expression: Pt spontaneously wrote her first and last name. She copied a 3 letter word. Shewas not able to write 3 letters to dictation today. Patient/Family Education/Training: Patient education and training was continued today including therole of Speech-Language Pathology, results of today's exam/recommendations and communication strategies. Reviewed recommended diet textures and safe swallowing strategies Learner: patient Method of Education: Verbal Barriers to Learning/Education: language impairment Patient: was not able to verbalize understanding of information and needs further instruction and education. Family: was not present Assessment /Clinical Impressions: is a 50 y.o. female status post IPH in left frontotemporal area, who had increased hemorrhage on 02/16, for which she went to the OR for emergent left sided craniectomy and hematoma evacuation. With all foods and liquids presented today, pt demonstrated adequate control, mastication and transit of the bolus during the oral phase of the swallow. No overt s/s of penetration/aspiration were noted. No swallowing difficulties with a dysphagia 4 diet have been reported. Pt continues to have minimal PO intake as reported by her nurse. Pt's nurse stated that pt's tube feedings have been adjusted tot ry and increse her appetite. It is questioned if pt would benefit from an appetite stimulant. It is recommended to continue with a dysphagia 4 diet and thin liquids. Pt would benefit from nutritional supplements and frequent small meals throughout the day as recommended by Nutritional Services. Compensatory strategies of slight diet modification and implementation of aspiration precautions appear effective in decreasing risk of aspiration. Prognosis for improvement in swallow function is judged to be good at this time secondary to anticipated neurologic recovery. Pt participated in communication therapy tx for 20 minutes then she stated that she was tired and could not do anything else. Pt continues with brief intelligible, appropriate social phrases. Most ofher expressive language continues to consist of nonsensical word salad/jargon. She continues to notbe able to answer simple personal open ended or y/n questions at this time. She was not able to label pictures or participate in automatic speech tasks given max verbal cues and models. She did identify some pictures from a field of two with max cuing. She also wrote her first and last name at the spontaneous level today. Pt will continue to benefit from her needs being anticipated and simplified information presented to her. Information should be repeated and said in different ways, and augmented with pictures and gestures. Functional Communication Measures ([place] [employer], 2002). The Functional Communication Measures (FCM???s) are a series of 7 point rating scales, ranging fromleast functional (Level 1) to most functional (Level 7). They have been developed by [employer] to describe different aspects of patient???s functional communication and swallowing abilities over the course of RATING CLERK intervention. Spoken Language Comprehension Level 2: With consistent, maximal cues, the individual is able to follow simple directions, respond to simple yes/no questions in context, and respond to simple words orphrases related to personal needs. Spoken Language Expression Level 2: The individual attempts to speak, although few attempts are accurate or appropriate. The communication partner must assume responsibility for structuring the communication exchange, and with consistent and maximal cueing, the individual can only occasionally produce automatic and/or imitative words and phrases that are rarely meaningful in context. Swallowing Level 5: Swallowing is safe with minimal diet restriction and/or occasionally requires minimal cueing to use compensatory strategies. The individual may occasionally self-cue. All nutrition and hydration needs are met by mouth at mealtime. GOALS: Dysphagia Goals: STG1: The patient will tolerate trials of thin liquids via cup without clinical signs of aspiration, to indicate readiness for an upgrade to Thin liquids. Goal met 02/29/20 STG2: The patient will trials of Dys 4 diet without clinical signs of aspiration, to indicate readiness for an upgrade Communication Goals: STG1: The patient will follow one step directions with 80% accuracy. STG2: The patient will answer personal y/n questions with 80% accuracy Plan /Recommendations: Patient will continue to benefit from further RATING CLERK intervention in this setting to address dysphagiamanagement and intervention needs. As a result of the dysphagia evaluation, the following recommendations are provided to maximize swallow function and to minimize risk of dysphagia and its ramifications: DIET: Impeccable oral care is essential in maintaining oral hygiene and minimizing harmful bacteria. Please continue with a Dysphagia 4 diet with thin liquids. MEDICATIONS: Medication should be administered crushed with pureed foods or whole with thin liquids if pt prefers. FEEDING/EATING STRATEGIES: Patient needs assist with set up of meals. Patient should eat in a low stimulation environment to increase attention to meal time. When eating, patient should be upright at 90 degrees as tolerated. Patient may use a straw when drinking liquids. Communication Access and Shared Decision Making Recommendations Please support communication access and shared decision making ability by doing the following: Support Comprehension: ?? Have a pen and paper ready when communicating. ?? Please present information slowly and simplify. Augment with drawings, diagrams, gestures and pointing. ?? Ask one question at a time. ?? Have only one person speak at a time. Environmental modifications: ??? Simplify the environment: Carryover/Discharge and Healthcare Decision making considerations ??? Will need family support for the successful carryover of discharge recommendations. ?? Currently comprehension of non-contextual information is a barrier RATING CLERK follow-up: Patient will continue to be followed while on Acute Care. Please page the #[phone] if the patient's needs require more immediate RATING CLERK intervention. Discharge Plan: Recommend Acute Multidisciplinary Rehabilitation Program. 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 Piña, 02/16/20) 24/ Temp: [36.4 ??C (97.5 ??F)-37.2 ??C (99 ??F)] () Neuro exam stable PT continuing to recommend acute rehab Lovenox 90 daily started yesterday AM, will transition to 90 BID this AM per hematology Subjective/ No specific complaints elicited, appears comfortable Objective/ BP 113/55 (BP Cuff Location: Left arm, BP Patient Position: Lying right side) Pulse 101 Temp 36.6 ??C (97.9 ??F) (Tympanic) Resp 16 Ht 170.2 cm (67) Wt 87.1 kg (192 lb) SpO2 94% BMI 30.07 kg/m?? Eyes open to voice Receptive aphasia - inappropriate, nonsensical answers to orientation questions Gaze conjugate Pupils equal, round, reactive EOMI Fire Chief'S Aide, biceps full bilaterally Lift legs off bed, gastrocs full bilaterally Incision C/D/I Flap full, soft Assessment/ 50F with tobacco use, cerebral venous thrombosis and intraparenchymal hemorrhage in left frontotemporal area. Initially admitted to Neurosurgery for close monitoring and heparin drip. Initial head CTat therapeutic dose was stable, but repeat head CT 02/16 demonstrating enlarged hemorrhage with coinciding decreased right sided movement and subsequent dilation of left pupil prompting hypertonic bolus, heparin reversal, mannitol, and OR for emergent Left sided craniectomy and hematoma evacuation. Later found to have acute deep and superficial vein thrombosis in the left upper extremity, on lovenox DVT ppx dosing. Now status post PEG placement. Repeat CTV with improvement in left transverse andsigmoid sinus thrombosis, however with slight progression of vein of Kristen thrombosis. Now on therapeutic lovenox. Anticoagulation plan per Hematology, and will discuss timing of safe discharge with Attending. Plan Q4h neuro checks SBP <160 Appreciate hematology recommendation Appreciate RATING CLERK recommendations Goal Na normonatremia, daily labs Lovenox 90 BID PT/OT Floor, will work toward dispo to Acute Rehab Kevin Rinaldi MD 03/01/2020 8:22 Page 5021 with questions Cosigned by Juan C Hoskins MD at 03/01/2020 13:50 EDT Associated attestation - Juan C Hoskins MD - 03/01/2020 1350 EDT Neurosurgery Staff I have seen and examined this patient. I reviewed the patient's history and exam with the Neurosurgery Resident. I agree with the findings, assessment and treatment plan as documented in the resident's note. BT * Isabell Lora, [facility]-RATING CLERK - 02/29/2020 1542 EDT Speech-Language Pathology Clinical Swallow and Cognitive-Communication Consultation RATING CLERK Diagnosis: Aphasia and Dysphagia, oropharyngeal phase Medical Diagnosis: Cerebral venous thrombosis and resultant intraparenchymal hemorrhage in the leftfrontotemporal area Date of Onset: 02/14/20 Date of Referral: 02/14/20 Date of Service: 02/29/2020 Start Time: 14:55 Total Therapy minutes: 10 minutes Swallow; 20 minutes Communication tx SUBJECTIVE: It's been pretty bad, it all makes me tired. Pt with brief appropriate phrases intermixed with word salad. OBJECTIVE: RATING CLERK returns today to provide further diagnostic/therapeutic intervention for dysphagia and communication. Current Diet: PEG, Dysphagia 4 with Thin Liquids (02/23/20) - Pt reportedly not eating much today Diet prior to admission: Suspect Regular Current Status: Cognitive Status: Patient was alert and cooperative during session after initially refusing to participate. She attempted to complete all tasks presented as best she could. Aphasia present. Respiratory Status: Respiratory status was judged to be WFL to support oral feeding. Clinical Swallow Consultation: Positioning: Seen at bedside for session. Consistencies Tested: was assessed with thin liquids . Pt refused trials of food textures at this time. Methods of Delivery: Patient was able to self administer item without RATING CLERK assistance using a straw. Oral Phase Findings: With thin liquids via a straw pt with adequate oral control and transit of thebolus during the oral phase of the swallow. Pharyngeal Phase: With thin liquids via a straw pt with no overt s/s of penetration/aspiration. Esophageal Phase: No signs indicated Compensatory Strategies: Compensatory strategies of slight diet modification and implementation of aspiration precautions appear effective in decreasing risk of aspiration. Speech-Language Function: Auditory Comprehension: Body Part Identification: Pt unable to point to facial body parts named given max verbal cues. Commands: Pt able to fallow directions to write her name, numbers and some letters to dictation - she was not able to follow other simple 1 step directions today Personal questions 0/4 - Inaccurate even at the personal level - pt's responses consistent of nonsensical jargon Verbal Expression: Confrontation Namin/10 given max verbal cues Automatic Speech tasks - Counting - Given max cues, pt able to inconsistently say a few numbers Repetition: Pt unable to repeat her or her family members names Spontaneous utterances: Pt continues to use appropriate and intelligible short social phrases. Reading Comprehension: Pt unable to do at this time Written Expression: Pt spontaneously wrote her first name. She was not able to accurately write herlast name. She wrote the word cat to dictation. She was not able to write her family member's names. Pt wrote the numbers 1-20 with 100% accuracy. Patient/Family Education/Training: Patient education and training was continued today including therole of Speech-Language Pathology, results of today's exam/recommendations and communication strategies. Reviewed recommended diet textures and safe swallowing strategies Learner: patient Method of Education: Verbal Barriers to Learning/Education: language impairment Patient: was not able to verbalize understanding of information and needs further instruction and education Family: was not present Assessment /Clinical Impressions: is a 50 y.o. female status post IPH in left frontotemporal area, who had increased hemorrhage on 02/16, for which she went to the OR for emergent left sided craniectomy and hematoma evacuation. refused trials of solid food textures today. With thin liquid via a straw pt demonstrated adequate control and transit of the bolus during the oral phase of the swallow. No overt s/s of penetration/aspiration were noted. No swallowing difficulties with a dysphagia 4 diet have been reported. Pt has had minimal PO intake today as reported by her sitter. It is recommended to continue with a dysphagia 4 diet and thin liquids. Pt would benefit from nutritional supplements and frequent small meals throughout the day as recommended by Nutritional Services. Compensatory strategies of slight diet modification and implementation of aspiration precautions appear effective in decreasing risk of aspiration. Prognosis for improvement in swallow function is judged to be good at this time secondary to anticipated neurologic recovery. A communication consultation was implemented today. Initially pt refused to participate but then with minimal encouragement pt fully participated in therapy session. At the end of the session pt stated That was good. I'm willing to do that more. I want to do better. Pt with brief intelligible, appropriate social phrases. Most of her expressive language consists of nonsensical word salad/jargon.She was not able to answer simple personal open ended or y/n questions at this time. She was not able to label or identify facial body parts or objects today. Pt was not able to complete simple reading tasks. Pt was able to write the numbers 1-20 and her first name. She was not able to say the numbe rs after she had written them. Pt will continue to benefit from her needs being anticipated and simplified information presented to her. Information should be repeated and said in different ways, and augmented with pictures and gestures. Functional Communication Measures ([place] [employer], 2002). The Functional Communication Measures (FCM???s) are a series of 7 point rating scales, ranging fromleast functional (Level 1) to most functional (Level 7). They have been developed by [employer] to describe different aspects of patient???s functional communication and swallowing abilities over the course of RATING CLERK intervention. Spoken Language Comprehension Level 2: With consistent, maximal cues, the individual is able to follow simple directions, respond to simple yes/no questions in context, and respond to simple words orphrases related to personal needs. Spoken Language Expression Level 2: The individual attempts to speak, although few attempts are accurate or appropriate. The communication partner must assume responsibility for structuring the communication exchange, and with consistent and maximal cueing, the individual can only occasionally produce automatic and/or imitative words and phrases that are rarely meaningful in context. Swallowing Level 5: Swallowing is safe with minimal diet restriction and/or occasionally requires minimal cueing to use compensatory strategies. The individual may occasionally self-cue. All nutrition and hydration needs are met by mouth at mealtime. GOALS: Dysphagia Goals: STG1: The patient will tolerate trials of thin liquids via cup without clinical signs of aspiration, to indicate readiness for an upgrade to Thin liquids. Goal met 02/29/20 STG2: The patient will trials of Dys 4 diet without clinical signs of aspiration, to indicate readiness for an upgrade Communication Goals: STG1: The patient will follow one step directions with 80% accuracy. STG2: The patient will answer personal y/n questions with 80% accuracy Plan /Recommendations: Patient will continue to benefit from further RATING CLERK intervention in this setting to address dysphagiamanagement and intervention needs. As a result of the dysphagia evaluation, the following recommendations are provided to maximize swallow function and to minimize risk of dysphagia and its ramifications: DIET: Impeccable oral care is essential in maintaining oral hygiene and minimizing harmful bacteria. Please continue with a Dysphagia 4 diet with thin liquids. MEDICATIONS: Medication should be administered crushed with pureed foods or whole with thin liquids if pt prefers. FEEDING/EATING STRATEGIES: Patient needs assist with set up of meals. Patient should eat in a low stimulation environment to increase attention to meal time. When eating, patient should be upright at 90 degrees as tolerated. Patient may use a straw when drinking liquids. Communication Access and Shared Decision Making Recommendations Please support communication access and shared decision making ability by doing the following: Support Comprehension: ?? Have a pen and paper ready when communicating. ?? Please present information slowly and simplify. Augment with drawings, diagrams, gestures and pointing. ?? Ask one question at a time. ?? Have only one person speak at a time. Environmental modifications: ??? Simplify the environment: Carryover/Discharge and Healthcare Decision making considerations ??? Will need family support for the successful carryover of discharge recommendations. ?? Currently comprehension of non-contextual information is a barrier RATING CLERK follow-up: Patient will continue to be followed while on Acute Care. Please page the #[phone] if the patient's needs require more immediate RATING CLERK intervention. Discharge Plan: Recommend Acute Multidisciplinary Rehabilitation Program. Isabell Lora CCC-RATING CLERK #[id number] 02/29/2020 Speech Language Pathologist Pager # [phone] (Float RATING CLERK Department) * Jamie Cisse - 02/29/2020 1411 EDT Nutrition Reassessment: ?? Medical Summary: Ynes White is a 50 y.o. female admitted on 02/14/2020 with tobacco use, cerebral venous thrombosis and intraparenchymal hemorrhage in left frontotemporal area. ??Initially admitted to Neurosurgery for close monitoring and heparin drip. Initial head??CT at therapeutic dose was stable, but repeat head CT 02/16 demonstrating enlarged hemorrhage with coinciding decreased right sided movement andsubsequent dilation of left pupil prompting hypertonic bolus, heparin reversal, mannitol, and OR for emergent Left sided craniectomy and hematoma evacuation. Later found to have acute deep and superficial vein thrombosis in the left upper extremity, on lovenox DVT ppx dosing. Now status post PEG placement. Repeat CTV with improvement in left transverse and sigmoid sinus thrombosis, however with slight progression of vein of Kristen thrombosis. Neuro exam stable, planning for starting full anticoagulation next Thursday 03/01. Dispo planning. ?? Subjective: Pt unable to provide interview 2/2 aphasia; eating 0-25% of meals per nursing notes. Current Nutrition Orders: Diet Order: Dysphagia 4 Enteral nutrition: Nutren 1.5 250ml bolus (4 times per day) + 60ml prosource (2 times per day) ?? Nutrition Focused Physical Findings: Digestive Systems: Last BM (02/28), PEG tube Skin: Surgical incision (head) ?? Anthropometrics: Height: 170.2cm Current Body Weight: 89kg (02/29/20) Body mass index is 30.71 kg/m??. Wt Readings from Last 6 Encounters: 02/29/20 89 kg (196 lb 1.6 oz) ?? Pertinent Medications: Current Facility-Administered Medications: acetaminophen (TYLENOL) tablet 1,000 [...] chewable tablet tablet,chewable 1 Tab oral QIDPRN dextrose 50 % solution 12.5 g intravenous PRN docusate (COLACE) liquid 100 mg oral BID enoxaparin (LOVENOX) injection 90 mg subcutaneous Q12H glucagon injection 1 mg intramuscular PRN guaiFENesin tablet 200 mg oral Q6H PRN hydrALAzine (APRESOLINE) 10 mg in sodium chloride (NS) 0.9 % 50 mL IVPB intravenous Q1H PRN HYDROmorphone (DILAUDID) tablet 2-4 mg oral Q4H PRN insulin aspart U-100 (NOVOLOG FLEXPEN) injection subcutaneous QHS insulin aspart U-100 (NOVOLOG FLEXPEN) injection subcutaneous TID WC lidocaine (XYLOCAINE) 2 % viscous solution lisinopriL (PRINIVIL) tablet 20 mg oral DAILY melatonin tablet 3 mg oral QHS metoprolol (LOPRESSOR) tablet 25 mg oral BID Multivitamins with minerals + ferrous gluconate (CENTRUM) oral solution 15 mL feeding tube DAILY nicotine (NICODERM CQ) 7 mg/24 hr patch 1 Patch transdermal Q24H nutren 1.5 liquid 250 mL per g tube QID ondansetron (PF) (ZOFRAN) injection 4 mg intravenous Q4H PRN pantoprazole (PROTONIX) tablet 40 mg oral DAILY papain-alpha amylase-cellulase (CLOG ZAPPER) 2-5 mL feeding tube PRN phenylephrine-lidocaine 0.25 %-3 % (CO-PHENYLCAINE) topical solution 5 mL topical ONCE QUEtiapine (SEROQUEL) tablet 25 mg oral QHS senna (SENOKOT) tablet 1 Tab oral BID I/Os Intake/Output Summary (Last 24 hours) at 02/29/2020 1414 Last data filed at 02/28/20202047 Gross per 24 hour Intake 300 ml Output 0 ml Net 300 ml Relevant Labs: Lab Results Component Value Date WBC 6.86 02/29/2020 RBC 3.78 (L) 02/29/2020 HGB 12.3 02/29/2020 HCT 37.0 02/29/2020 MCV 98 02/29/2020 MCH 32.5 02/29/2020 PLT 438 (H) 02/29/2020 NA 133 (L) 02/29/2020 K 4.6 02/29/2020 CL 102 02/29/2020 CO2 24 02/29/2020 BUN 19 02/29/2020 CREATININE 0.49 (L) 02/29/2020 CALCIUM 8.8 02/14/2020 MG 1.8 02/29/2020 PHOS 4.6 (H) 02/29/2020 ?? Estimated Nutrition Needs: MSJ; 1629 MSJ x 1.2: 1955 calories per day ??1.3 x adjusted weight: 104 gram protein per day ?? Estimated Nutrition Intake: 0-25% of meals (02/26-02/28) 100% of tube feeds?? Assessment: Pt tolerating Dysphagia diet w/ shakes; she is only consuming about 0-25% of all her meals and therefore is not meeting her calorie or protein needs w/ PO intake. Pt tolerating enteral nutrition; recommend continuing tube feeds as ordered; 250ml nutren 1.5 bolus, four times per day w/ 60ml prosource given twice per day. Continue to encourage PO intake; PO combined w/ calorie/protein from tube feedings should be adequate to meet nutrition needs. Weight down since admission; unclear if this is d/t changes in fluid vs changes in nutritional status; continue to trend weight. Lytes stable, continue to monitor. ?? Nutrition Risk Level: 1 (high) Medical Nutrition Therapy Plan and Recommendations: 1. Continue diet as ordered - encourage PO intake - Mighty shakes w/ all meals 2. Continue tube feeding as ordered: 250ml bolus Nutren 1.5 (four times per day) - 60ml prosource (given twice per day) - additional EFW per MD 3. Monitor PO intake and BMs 4. Strict I/Os 5. Continue to trend weight 6. Monitor lytes; replete as needed 7. Continue to monitor labs, I/Os, and skin Jamie Cisse, MS RD CD Pager: [phone] * Matteo Carlin RN - 02/29/2020 1255 EDT Acute Inpatient Rehabilitation Rehab Referral Review Patient Review: EMR reviewed. Admitted??02/13 after left frontotemporal IPH secondary to cerebral venous sinus thrombosis. Expansion of IPH on 02/15 emergent craniectomy and clot removal. A&Ox1 - aphasia. Episodes of agitation. 1:1 continued. Poor safety awareness and impulsivity. Bone flap precautions. Patient has been progressing well and participating with therapies. Bolus TF- with minimal PO intake. Referral Status and Assessment: Per neuro/surg note once therapeutic with anti coagulation patient will be medically ready or discharge to [place] Therapies are recommending Acute Rehab. Physiatry has been consulted 02/26/[address] Rutherford's note Follow-up Plan: Will continue to follow. MATTEO CARLIN RN 02/29/2020 12:55 * Evelyn Galindo PT - 02/29/2020 1010 EDT [facility] Rehabilitation Therapy Acute Therapies [facility] Physical Therapy Encounter Note Date of Service: 02/29/2020 Subjective/Objective Subjective Patient talking nonstop but mostly nonsensical, Objective Intervention completed today: Time: 9:30 Total treatment time: 25 minutes. Timed code treatment minutes: 25 Therapeutic Activity: Patient found in bed with one-to-one sitter present Patient talking about things that are not in context of the situation Patient rubbing her head and moaning With encouragement patient participated in physical therapy Supine to sit to patient's right minimal contact assist of 1 Sitting on edge of bed close supervision PT placed helmet on patient Sit to stand from edge of bed to rolling walker minimal contact assist Patient ambulated 150 feet 2 times with rolling walker minimal contact assist with close wheelchairfollow Patient is impulsive and needs verbal cues for safety however does not seem to understand verbal commands seems to understand tactile commands better Sit to supine supervision Patient/Family Education: Topic: Assistive device/technique Balance Discharge planning Gait Role of therapy Safety Transfers Learner: patient Method: verbal Barriers to Learning: cognitive deficits Outcome: needs practice, verbalized understanding and returned demonstration Team Communication: Informed RN of patient performance Assessment/Plan Assessment Patient continues to have overall cognitive deficits with global aphasia which is her main limitingbarrier. Today patient was able to tolerate ambulation in hallways further distances does continue to have some weakness on the right side but much improved. Continue to recommend acute rehab. Other limiting barriers as patient is impulsive and with decreased safety awareness. Plan Continue per plan of care Recommended Discharge Destination: Acute rehabilitation Recommended Discharge Services: Physical therapy at rehabilitation facility Recommended Equipment Needs: To be determined by next care provider Other recommendations: No other consults recommended at this time Pager: [phone] Evelyn Galindo, PT 02/29/2020 10:10 * Angie Hassan - 02/29/2020 1004 EDT CM following. Dana PERLA following. Dr Rutherford assessed. Plan for d/c to Acute Rehab when medically stable. Angie Hassan RN/[facility] #[id number] Covering constantine Smith today. * Damon Eckert MD - 02/29/2020 0783 EDT Neurosurgery Progress Note Problems/ Left transverse venous sinus thrombosis with intracerebral hemorrhage Midline Shift Brain compression Encephalopathy Procedures/ Left sided craniectomy and hematoma evacuation (Dr. Piña, 02/16/20) 24/ Temp: [36.5 ??C (97.7 ??F)-37.1 ??C (98.8 ??F)] () Neuro exam stable Subjective/ Doing fine this morning, says that she slept overnight Objective/ BP 117/72 (BP Cuff Location: Left arm) Pulse 101 Temp 37.1 ??C (98.8 ??F) (Tympanic) Resp 18 Ht 170.2 cm (67) Wt 89 kg (196 lb 1.6 oz) SpO2 92% BMI 30.71 kg/m?? Eyes open to voice Receptive aphasia - inappropriate, nonsensical answers to orientation questions Gaze conjugate Pupils equal, round, reactive EOMI Fire Chief'S Aide, biceps full bilaterally Lift legs off bed, gastrocs full bilaterally Incision C/D/I Flap full, soft Assessment/ 50F with tobacco use, cerebral venous thrombosis and intraparenchymal hemorrhage in left frontotemporal area. Initially admitted to Neurosurgery for close monitoring and heparin drip. Initial head CTat therapeutic dose was stable, but repeat head CT 02/16 demonstrating enlarged hemorrhage with coinciding decreased right sided movement and subsequent dilation of left pupil prompting hypertonic bolus, heparin reversal, mannitol, and OR for emergent Left sided craniectomy and hematoma evacuation. Later found to have acute deep and superficial vein thrombosis in the left upper extremity, on lovenox DVT ppx dosing. Now status post PEG placement. Repeat CTV with improvement in left transverse andsigmoid sinus thrombosis, however with slight progression of vein of Kristen thrombosis. Neuro exam stable, will start full anticoagulation today, plan for acute rehab once therapeutic. Plan Q4h neuro checks SBP <160 Appreciate hematology recommendation Appreciate RATING CLERK recommendations Goal Na normonatremia, daily labs Lovenox 40 mg qhs Full anticoag today PT/OT Floor, will work toward dispo to Acute Rehab Damon Eckert MD 02/29/2020 7:48 Page [id number] with questions Cosigned by Jerry Merrill MD at 02/29/2020 14:58 EDT Associated attestation - Jerry Merrill MD - 02/29/2020 8939 EDT Neurosurgery Staff Patient seen and independently examined. I have reviewed history, pertinent exam findings, and relevant imaging with the resident and agree with the resident note, with the following additions/amendments: Stable receptive aphasia. Incision benign. S. Cheo Merrill MD Neurosurgery * Damon Eckert MD - 02/28/2020 0928 EDT Neurosurgery Progress Note Problems/ Left transverse venous sinus thrombosis with intracerebral hemorrhage Midline Shift Brain compression Encephalopathy Procedures/ Left sided craniectomy and hematoma evacuation (Dr. Piña, 02/16/20) 24/ Temp: [35.8 ??C (96.4 ??F)-37 ??C (98.6 ??F)] () Exam stable No events overnight Subjective/ No active complaints this morning, aphasia limits meaningful conversation Objective/ BP 140/76 Pulse 94 Temp 37 ??C (98.6 ??F) (Tympanic) Resp 18 Ht 170.2 cm (67) Wt 89.9 kg(198 lb 4.8 oz) SpO2 96% BMI 31.06 kg/m?? Asleep, awakens and attends Nonsensical verbalization when asked orientation questions Gaze conjugate Pupils equal, round, reactive EOMI Fire Chief'S Aide, biceps full bilaterally Lift legs off bed, gastrocs full bilaterally Incision C/D/I Flap full, soft Assessment/ 50F with tobacco use, cerebral venous thrombosis and intraparenchymal hemorrhage in left frontotemporal area. Initially admitted to Neurosurgery for close monitoring and heparin drip. Initial head CTat therapeutic dose was stable, but repeat head CT 02/16 demonstrating enlarged hemorrhage with coinciding decreased right sided movement and subsequent dilation of left pupil prompting hypertonic bolus, heparin reversal, mannitol, and OR for emergent Left sided craniectomy and hematoma evacuation. Later found to have acute deep and superficial vein thrombosis in the left upper extremity, on lovenox DVT ppx dosing. Now status post PEG placement. Repeat CTV with improvement in left transverse andsigmoid sinus thrombosis, however with slight progression of vein of Kristen thrombosis. Neuro exam stable, planning for starting full anticoagulation next Thursday 03/01. Dispo planning. Plan/ Q4h neuro checks SBP <160 Appreciate hematology recommendation Appreciate RATING CLERK recommendations Goal Na normonatremia, daily labs Lovenox 40 mg qhs Full anticoag on 03/01 PT/OT Floor, will work toward dispo to Acute Rehab - timing of discharge pending Damon Eckert MD 02/28/2020 9:28 Page [id number] with questions Cosigned by Jerry Merrill MD at 02/28/2020 10:35 EDT * Damon Eckert MD - 02/27/2020 1139 EDT Neurosurgery Progress Note Problems/ Left transverse venous sinus thrombosis with intracerebral hemorrhage Midline Shift Brain compression Encephalopathy Procedures/ Left sided craniectomy and hematoma evacuation (Dr. Piña, 02/16/20) 24/ Temp: [36 ??C (96.8 ??F)-36.9 ??C (98.4 ??F)] () Neuro exam stable Heparin anticoag start date moved to next Saturday given history of significant ICH Subjective/ Irritated that she was woken up this morning, unable to fully articulate any issues Objective/ BP (!) 145/83 (BP Patient Position: Lying right side) Pulse 94 Temp 36.1 ??C (97 ??F) (Tympanic) Resp 16 Ht 170.2 cm (67) Wt 92.8 kg (204 lb 9.4 oz) SpO2 95% BMI 32.04 kg/m?? Asleep, awakens and attends Nonsensical verbalization when asked orientation questions Gaze conjugate Pupils equal, round, reactive EOMI Full strength in bilateral supervisor cellars, biceps, triceps Full strength in gastrocs, quad bilaterally Incision C/D/I Flap full, soft Assessment/ 50F with tobacco use, cerebral venous thrombosis and intraparenchymal hemorrhage in left frontotemporal area. Initially admitted to Neurosurgery for close monitoring and heparin drip. Initial head CTat therapeutic dose was stable, but repeat head CT 02/16 demonstrating enlarged hemorrhage with coinciding decreased right sided movement and subsequent dilation of left pupil prompting hypertonic bolus, heparin reversal, mannitol, and OR for emergent Left sided craniectomy and hematoma evacuation. Later found to have acute deep and superficial vein thrombosis in the left upper extremity, on lovenox DVT ppx dosing. Now status post PEG placement. Repeat CTV with improvement in left transverse andsigmoid sinus thrombosis, however with slight progression of vein of Kristen thrombosis. Neuro exam stable, planning for starting full anticoagulation next Thursday 03/01. Dispo planning. Plan/ Q4h neuro checks SBP <160 Appreciate hematology recommendation Appreciate RATING CLERK recommendations Goal Na normonatremia, daily labs Lovenox 40 mg qhs Full anticoag on 03/01 PT/OT Floor, will work toward dispo to Acute Rehab - timing of discharge pending Damon Eckert MD 02/27/2020 11:39 Page [phone] with questions Cosigned by Jerry Merrill MD at 02/27/2020 14:11 EDT * Kassandra Francis CCC-RATING CLERK - 02/26/2020 1458 EDT Speech-Language Pathology Contact Note RATING CLERK returned to provide dysphagia and cognitive communication intervention. Pt was asleep. Attempted to wake patient. She opened her eyes but did not move, and said, Not now. Comments/Considerations: Speech-Language Pathologist to continue to follow WILY Ayala 02/26/2020 14:58 Fridays: Pager #[phone] RATING CLERK Acute Care Pgr #[phone] * Abena Haskins - 02/26/2020 1231 EDT Case Management Note Pt is candidate for Acute Rehab at [facility]. Heme is recommending IV heparin infusion over weekend. Then Lovenox to coumadin bridge. [place] will revaluate on Saturday to see if patient is appropriate for their program. Dr. Rutherford will meet with patient today. Licha Haskins RN CM #[id number] * Kisha Prasad RN - 02/26/2020 1219 EDT Acute Inpatient Rehabilitation Rehab Referral Review Patient Review: EMR reviewed. Admitted??02/13 after left frontotemporal IPH secondary to cerebral venous sinus thrombosis. Expansion of IPH on 02/15 emergent craniectomy and clot removal. A&Ox1 - aphasia. Episodes of agitation. 1:1 continued. Poor safety awareness and impulsivity. Bone flap precautions. Patient has been progressing well and participating with therapies. Bolus TF- with minimal PO intake. Referral Status and Assessment: Not medically ready - CTV Completed 02/24- Hematology recommendation in place. IV Heparin infusion has not yet been initiated. Therapies are recommending Acute Rehab. Physiatry has been consulted - awaiting evaluation. Follow-up Plan: Will continue to follow. KISHA PRASAD RN 02/26/2020 12:04 * Trish Ponce OT - 02/26/2020 5300 EDT [facility] Rehabilitation Therapy Acute Therapies [facility] - Occupational Therapy Encounter Note Date of Service: 02/26/2020 Subjective/Objective SUBJECTIVE: That was fine patient stated at the end of session OBJECTIVE: Time: 10:30 AM Total treatment time: 25 minutes. Timed code treatment minutes: 25 Interventions included: Self-Care/Home Management : Patient resting in bed at beginning of OT session patient initially resting in bed. With verbal andtactile cueing patient became alert. Initially attempting to verbalize but was difficult to overallunderstand. Patient intermittently able to spontaneously verbalize clear short sentences but upon direct questions often unable to understand. Patient unable to answer any orientation questions even with choices provided Patient impulsive and needs cues for redirection but was able to follow all verbal commands throughout session Toileting: Supervision toilet transfer tenths due to decreased safety awareness and intermittent mild loss of balance. Cues needed for safe walker placement and management in bathroom. Cues provided for patient to wash hands after toileting task. Cues needed to locate necessary items to complete task. Functional mobility: Supervision seated edge of bed patient able to maintain but required supervision to maintain safety 1:[address] at end of the session Grooming: Presented patient with 2 brush with paste applied patient today thoroughly able to brush teeth manage task with [id number] instructions. Dressing: provded patient with pants as patient was indicating that she wanted some pants initial pants were too small asked patient if she wanted larger pair she nodded yes. Overall supervision provided with 1 time of min contact assistance in order to properly don through right leg. Cues were needed for safety and management of pants to stand on pant leg which was provided x2. End of session patient was alert sitting up in bed. Vital signs: Vital signs have been stable with interventions and were not monitored. Patient/Family Education: Topic: Benefits of activity Compensatory strategies Cognitive strategies Role of OT Safety awareness Learner: patient Method: verbal Barriers to Learning: cognitive deficits and language Outcome: returned demonstration and reinforcement needed / plan: Per OT plan Assessment/Plan ASSESSMENT: Ynes much more engaged in today's therapy session which she fully participated in 30minutes therapy session participate in self-care tasks. Cues are needed to maintain safety, balanceas well as sequencing of steps. Small improvement noted in verbalization today as well with more spontaneous speech noted. Patient does remain well below her baseline and appropriate for acute rehab at this time. Based on performance with therapy today, this patient is expected to be able to tolerate 3 hours of multi-disciplinary acute rehab therapy 5 days a week. PLAN: Continue per plan of care Recommended Discharge Destination: Acute rehabilitation Recommended Discharge Services: Occupational therapy at rehabilitation facility Recommended Discharge Equipment: To be determined by next care provider Pager: [phone] TRISH PONCE OT, 02/26/2020, 11:35 * Frank Hardwick MD - 02/26/2020 1036 EDT Hematology Progress Note Admit Date: 02/14/2020 Hospital Day: LOS: 12 days Date of Service: 02/26/2020 Medications: Current Facility-Administered Medications: acetaminophen (TYLENOL) tablet 1,000 [...] chewable tablet tablet,chewable 1 Tab oral QIDPRN dextrose 50 % solution 12.5 g intravenous PRN docusate (COLACE) liquid 100 mg oral BID enoxaparin (LOVENOX) injection 40 mg subcutaneous DAILY glucagon injection 1 mg intramuscular PRN hydrALAzine (APRESOLINE) 10 mg in sodium chloride (NS) 0.9 % 50 mL IVPB intravenous Q1H PRN HYDROmorphone (DILAUDID) tablet 2-4 mg oral Q4H PRN insulin aspart U-100 (NOVOLOG FLEXPEN) injection subcutaneous QHS insulin aspart U-100 (NOVOLOG FLEXPEN) injection subcutaneous TID lidocaine (XYLOCAINE) 2 % viscous solution lisinopriL (PRINIVIL) tablet 20 mg oral DAILY melatonin tablet 3 mg oral QHS metoprolol (LOPRESSOR) injection 5 mg intravenous Q6H Multivitamins with minerals + ferrous gluconate (CENTRUM) oral solution 15 mL feeding tube DAILY nicotine (NICODERM CQ) 7 mg/24 hr patch 1 Patch transdermal Q24H nutren 1.5 liquid 250 mL per g tube QID ondansetron (PF) (ZOFRAN) injection 4 mg intravenous Q4H PRN pantoprazole (PROTONIX) tablet 40 mg oral DAILY papain-alpha amylase-cellulase (CLOG ZAPPER) 2-5 mL feeding tube PRN phenylephrine-lidocaine 0.25 %-3 % (CO-PHENYLCAINE) topical solution 5 mL topical ONCE QUEtiapine (SEROQUEL) tablet 25 mg oral QHS senna (SENOKOT) tablet 1 Tab oral BID Objective: VS: Patient Vitals for the past 8 hrs: BP Pulse Heart Rate Resp Temp SpO2 O2 Device 02/26/20 0946 (!) 148/75 -- 94 BPM -- -- -- -- 02/26/20 0944 -- -- (!) 108 BPM -- -- -- -- 02/26/20 0834 (!) 148/103 -- -- -- -- -- -- 02/26/20 0822 (!) 148/103 -- (!) 106 BPM 17 36.7 ??C (98.1 ??F) 99 % -- 02/26/20 0528 (!) 126/93 91 92 BPM 16 36.3 ??C (97.3 ??F) 95 % None Weight: Weight : 93.7 kg (206 lb 8 oz) Data Review: Labs: CBC: Recent Labs 02/24/20 0558 02/25/20 0618 02/26/20 0751 WBC 8.14 8.98 9.19 HGB 10.8* 11.3* 10.9* HCT 31.7* 32.8* 31.6* MCV 97 95 97 PLT 326 365 376 Incorrect component name entered: ABS NEUTROPHILS BMP: Recent Labs 02/24/20 0558 02/25/20 0618 02/26/20 0751 CREATININE 0.42* 0.45* 0.47* BUN 17 16 16 NA 136 137 135* K 3.6 3.9 3.9 CL 107 107 105 CO2 22 23 25 PHOS 3.8 3.9 4.0 MG 2.0 2.0 1.9 Coags: Recent Labs 02/24/20 0558 02/25/20 0618 02/26/20 0751 PROTIME 13.5* 13.3 12.8 INR 1.2* 1.1 1.1 PTT 37 35 34 Assessment: This is a case of a 51 years old lady with history of smoking who presented with cerebral vein thrombosis with intracerebral bleeding associated with a left upper extremity DVT and a PE requiring urgent surgical decompression and craniotomy due to progression of her bleed after starting heparin. Patient is currently recovering from her surgery she has been extubated has a feeding tube and workingwith physical therapy. She has been started on Lovenox 40 mg subcu daily as a prophylactic dose of anticoagulation. Work-up for her extensive thrombosis so far is nonconclusive, lupus antibody was not detected the cardiolipin IgM was mildly elevated and the beta-2 glycoprotein was negative. Protein C was reduced but that could be the case in any acute thrombotic events. We also sent testing for PNH and MPN, though less likely with a normal CBC but should be ruled out in case of an unusual thrombosis such as a cerebral vein thrombosis in this patient. ?? Recommendations: -Would start IV heparin as per heparin drip protocol -Follow CBC daily with frequent neuro checks while on heparin with a low threshold for head CT in case of mental status deterioration -If patient does well on heparin over the weekend, then we can discuss switching to Lovenox at therapeutic dose prior to discharge. -Patient will probably be discharged to a rehab, therefore the best plan would be discharging her on Lovenox as a therapeutic dose with a plan to bridge to warfarin later when she recovers from her acute illness -THP follow-up after discharge. ?? Patient discussed with Dr.Adrianzen Frank Hardwick MD PGY4 Hematology/Oncology pager [phone]. Cosigned by Aron Betancourt MD at 02/26/2020 14:15 EDT Associated attestation - Aron Betancourt MD - 02/26/2020 1415 EDT Based on the recommendations from the [facility] in the setting of the COVID19 pandemic we are working to minimize patient exposure. For all routine not urgent hematology consults, patients will only be physically evaluated if deemed imperative to provide specialty recommendations, otherwise assessments with be based on primary teams' exams and telehealth discussions. This consultation has been reviewed by clinical staff and has been deemed appropriate for the latter. I agree with the assessment and plan as documented by Dr. Hardwick. Aron Ramirez MD * Jamie Cisse - 02/26/2020 0925 EDT Nutrition Reassessment: ?? Medical Summary: Ynes White is a 50 y.o. female admitted on 02/14/2020 with tobacco use, cerebral venous thrombosis and intraparenchymal hemorrhage in left frontotemporal area. ??Initially admitted to Neurosurgery for close monitoring and heparin drip. Initial head??CT at therapeutic dose was stable, but repeat head CT 02/16 demonstrating enlarged hemorrhage with coinciding decreased right sided movement andsubsequent dilation of left pupil prompting hypertonic bolus, heparin reversal, mannitol, and OR for emergent Left sided craniectomy and hematoma evacuation. Later found to have acute deep and superficial vein thrombosis in the left upper extremity, on lovenox DVT ppx dosing. Now status post PEG placement. Repeat CTV with improvement in left transverse and sigmoid sinus thrombosis, however with slight progression of vein of Kristen thrombosis. Will determine timing of therapeutic anticoagulation in the setting of new CTV findings. ?? Subjective: Pt unable to provide interview 2/2 aphasia; eating 25% of meals per nursing notes. Current Nutrition Orders: Diet Order: Dysphagia 4 Enteral nutrition: Nutren 1.5 250ml bolus (4 times per day) + 60ml prosource (2 times per day) Nutrition Focused Physical Findings: Digestive Systems: Last BM (02/25), PEG tube Skin: Surgical incision (head) ?? Anthropometrics: Height: 170.2cm Admission Weight: 93.7kg (02/22) Body mass index is 32.34 kg/m??. Wt Readings from Last 6 Encounters: 02/23/20 93.7 kg (206 lb 8 oz) ?? Pertinent Medications: Current Facility-Administered Medications: acetaminophen (TYLENOL) tablet 1,000 [...] chewable tablet tablet,chewable 1 Tab oral QIDPRN dextrose 50 % solution 12.5 g intravenous PRN docusate (COLACE) liquid 100 mg oral BID enoxaparin (LOVENOX) injection 40 mg subcutaneous DAILY glucagon injection 1 mg intramuscular PRN hydrALAzine (APRESOLINE) 10 mg in sodium chloride (NS) 0.9 % 50 mL IVPB intravenous Q1H PRN HYDROmorphone (DILAUDID) tablet 2-4 mg oral Q4H PRN insulin aspart U-100 (NOVOLOG FLEXPEN) injection subcutaneous QHS insulin aspart U-100 (NOVOLOG FLEXPEN) injection subcutaneous TID WC lidocaine (XYLOCAINE) 2 % viscous solution lisinopriL (PRINIVIL) tablet 20 mg oral DAILY melatonin tablet 3 mg oral QHS metoprolol (LOPRESSOR) injection 5 mg intravenous Q6H Multivitamins with minerals + ferrous gluconate (CENTRUM) oral solution 15 mL feeding tube DAILY nicotine (NICODERM CQ) 7 mg/24 hr patch 1 Patch transdermal Q24H nutren 1.5 liquid 250 mL per g tube QID ondansetron (PF) (ZOFRAN) injection 4 mg intravenous Q4H PRN pantoprazole (PROTONIX) tablet 40 mg oral DAILY papain-alpha amylase-cellulase (CLOG ZAPPER) 2-5 mL feeding tube PRN phenylephrine-lidocaine 0.25 %-3 % (CO-PHENYLCAINE) topical solution 5 mL topical ONCE QUEtiapine (SEROQUEL) tablet 25 mg oral QHS senna (SENOKOT) tablet 1 Tab oral BID I/Os Intake/Output Summary (Last 24 hours) at 02/26/2020 0947 Last data filed at 02/25/2020 1839 Gross per 24 hour Intake 2540 ml Output -- Net 2540 ml Relevant Labs: Lab Results Component Value Date WBC 9.19 02/26/2020 RBC 3.26 (L) 02/26/2020 HGB 10.9 (L) 02/26/2020 HCT 31.6 (L) 02/26/2020 MCV 97 02/26/2020 MCH 33.4 (H) 02/26/2020 PLT 376 02/26/2020 NA 135 (L) 02/26/2020 K 3.9 02/26/2020 CL 105 02/26/2020 CO2 25 02/26/2020 BUN 16 02/26/2020 CREATININE 0.47 (L) 02/26/2020 CALCIUM 8.8 02/14/2020 MG 1.9 02/26/2020 PHOS 4.0 02/26/2020 Estimated Nutrition Needs: MSJ; 1629 MSJ x 1.2: 1955 calories per day 1.3 x adjusted weight: 104 gram protein per day ?? Estimated Nutrition Intake: 25% of recorded meals (02/23-02/25) 100% of tube feeds?? Assessment: Pt tolerating Dysphagia diet w/ shakes; she is still only consuming about 25 % of all her meals andtherefore is not meeting her calorie or protein needs w/ PO intake. Pt tolerating enteral nutrition; recommend continuing tube feeds as ordered; 250ml nutren 1.5 bolus, four times per day w/ 60ml prosource given twice per day. PO intake combined w/ calorie/protein from tube feedings should be adequate to meet nutrition needs. No new weights since 02/22; recheck and continue to trend to help assess if pt is maintaining her nutritional status. Lytes stable, continue to monitor. Nutrition Risk Level: 1 (high) Medical Nutrition Therapy Plan and Recommendations: 1. Continue diet as ordered - encourage PO intake 2. Continue tube feeding as ordered: 250ml bolus Nutren 1.5 (four times per day) - 60ml prosource (given twice per day) - additional EFW per MD 3. Monitor PO intake and BMs 4. Strict I/Os 5. Recheck weight; continue to trend 6. Monitor lytes; replete as needed 7. Continue to monitor labs, I/Os, and skin Jamie Cisse, MS RD CD Pager: [phone] * Kevin Rinaldi MD - 02/26/2020 0500 EDT Neurosurgery Progress Note Problems/ Left transverse venous sinus thrombosis with intracerebral hemorrhage Midline Shift Brain compression Encephalopathy Procedures/ Left sided craniectomy and hematoma evacuation (Dr. Piña, 02/16/20) 24/ Temp: [36.6 ??C (97.9 ??F)-37 ??C (98.6 ??F)] () One episode of asymptomatic tachycardia to 190s for a few seconds, spontaneously resolved CT Venogram performed - improvement in left sigmoid and transverse sinus thromboses, slight progression of left Vein of Kristen thrombosis; IPH stable PT continues to recommend Acute Rehab AM Na pending Subjective/ Slightly agitated, however no specific complaints. Objective/ BP (!) 146/80 (BP Cuff Location: Left arm, BP Patient Position: Semi fowlers) Pulse 91 Temp 36.8 ??C (98.2 ??F) (Tympanic) Resp 16 Ht 170.2 cm (67) Wt 93.7 kg (206 lb 8 oz) SpO2 96% BMI 32.34 kg/m?? Asleep, awakens and attends Unable to answer orientation questions correctly due to aphasia Answers No to all questions Gaze conjugate Pupils equal, round, reactive EOMI Able to mimic in upper and lower extremities Full strength in bilateral supervisor cellars, biceps, triceps Full strength in gastrocs bilaterally Incision C/D/I Flap full, soft Assessment/ 50F with tobacco use, cerebral venous thrombosis and intraparenchymal hemorrhage in left frontotemporal area. Initially admitted to Neurosurgery for close monitoring and heparin drip. Initial head CTat therapeutic dose was stable, but repeat head CT 02/16 demonstrating enlarged hemorrhage with coinciding decreased right sided movement and subsequent dilation of left pupil prompting hypertonic bolus, heparin reversal, mannitol, and OR for emergent Left sided craniectomy and hematoma evacuation. Later found to have acute deep and superficial vein thrombosis in the left upper extremity, on lovenox DVT ppx dosing. Now status post PEG placement. Repeat CTV with improvement in left transverse andsigmoid sinus thrombosis, however with slight progression of vein of Kristen thrombosis. Will determine timing of therapeutic anticoagulation in the setting of new CTV findings. Plan/ Q4h neuro checks SBP <160 Appreciate hematology recommendation Appreciate RATING CLERK recommendations Goal Na normonatremia, daily labs Lovenox 40 mg qhs Will discuss timing of therapeutic anticoagulation PT/OT Floor, will work toward dispo to Acute Rehab Kevin Rinaldi MD 02/26/2020 5:00 Page [phone] with questions Cosigned by Dane Mcwilliams MD at 02/26/2020 9:06 EDT * Evelyn Galindo, PT - 02/25/2020 1121 EDT [facility] Rehabilitation Therapy Acute Therapies [facility] Physical Therapy Encounter Note Date of Service: 02/25/2020 Subjective/Objective Subjective Patient talking nonstop but mostly nonsensical, Objective Intervention completed today: Time: 9:15 Total treatment time: 25 minutes. Timed code treatment minutes: 25 Therapeutic Activity: Patient found in bed with one-to-one sitter present Patient talking about things that are not in context of the situation Patient rubbing her head and moaning With encouragement patient participated in physical therapy Supine to sit to patient's right minimal contact assist of 1 Sitting on edge of bed close supervision PT placed helmet on patient Sit to stand from edge of bed to rolling walker minimal contact assist Patient ambulated 50 feet 2 times with rolling walker minimal contact assist with close wheelchair follow Patient is impulsive and needs verbal cues for safety however does not seem to understand verbal commands seems to understand tactile commands better Sit to supine supervision Patient/Family Education: Topic: Assistive device/technique Balance Discharge planning Gait Role of therapy Safety Transfers Learner: patient Method: verbal Barriers to Learning: cognitive deficits Outcome: needs practice, verbalized understanding and returned demonstration Team Communication: Informed RN of patient performance Assessment/Plan Assessment Patient continues to have overall cognitive deficits with global aphasia which is her main limitingbarrier. Today patient was able to tolerate ambulation in hallways does continue to have some weakness on the right side but much improved. Continue to recommend acute rehab. Other limiting barriers as patient is impulsive and with decreased safety awareness. Plan Continue per plan of care Recommended Discharge Destination: Acute rehabilitation Recommended Discharge Services: Physical therapy at rehabilitation facility Recommended Equipment Needs: To be determined by next care provider Other recommendations: No other consults recommended at this time Pager: [phone] Evelyn Galindo, PT 02/25/2020 11:22 * Trenton Marlow MD - 02/25/2020 1004 EDT Neurosurgery Progress Note Problems/ Left transverse venous sinus thrombosis with intracerebral hemorrhage Midline Shift Brain compression Encephalopathy Procedures/ Left sided craniectomy and hematoma evacuation (Penar, 02/16/20) 24/ Temp: [36.2 ??C (97.2 ??F)-37 ??C (98.6 ??F)] () PT/OT recommending acute rehab RATING CLERK noting continued lack of content in speech Continued on prophylactic lovenox Na 137 (137) Subjective/ Agitated to be awoken this AM, not wanting to partake in exam Objective/ BP (!) 146/80 (BP Cuff Location: Left arm, BP Patient Position: Supine) Pulse 99 Temp 36.8 ??C (98.2 ??F) (Tympanic) Resp 16 Ht 170.2 cm (67) Wt 93.7 kg (206 lb 8 oz) SpO2 96% BMI 32.34 kg/m?? Asleep, reluctantly awakens and attends Unable to answer orientation questions correctly due to aphasia Answers No to all questions this AM Gaze conjugate Pupils equal, round, reactive Reluctantly follows commands in bilateral upper extremities, not in lower extremities Incision C/D/I Flap full, soft Assessment/ 50F with tobacco use, cerebral venous thrombosis and intraparenchymal hemorrhage in left frontotemporal area. Initially admitted to Neurosurgery for close monitoring and heparin drip. Initial head CTat therapeutic dose was stable, but repeat head CT 02/16 demonstrating enlarged hemorrhage with coinciding decreased right sided movement and subsequent dilation of left pupil prompting hypertonic bolus, heparin reversal, mannitol, and OR for emergent Left sided craniectomy and hematoma evacuation. Later found to have acute deep and superficial vein thrombosis in the left upper extremity, on lovenox DVT ppx dosing. Now status post PEG placement. Neuro exam stable, but agitated to be disturbed this AM and minimally participatory in exam. Plan/ Q4h neuro checks SBP <160 Appreciate hematology recommendation Appreciate RATING CLERK recommendations Goal Na normonatremia, daily labs Repeat head CT if neuro decline Lovenox 40 mg qhs Considering repeat CTV PT/OT Floor, dispo planning Trenton Marlow MD 02/25/2020 10:04 Page [phone] with questions Cosigned by Christian Conley MD at 02/25/2020 17:06 EDT * Moraima Munguia MD - 02/24/2020 1716 EDT BRIEF PROGRESS NOTE As of Saturday, patient had been clinically improving. However, would still recommend a repeat CTV toevaluate burden of thrombus, and would highly recommend starting anticoagulation as soon as possible. Neurology will sign off at this time. Please feel free to contact us with any questions or concerns. Moraima Munguia MD Neurology PGY-4 #[id number] (#[id number] afterhours and weekends) Cosigned by Socorro Soto DO at 02/25/2020 15:48 EDT * Mary Clarke, PT - 02/24/2020 1530 EDT [facility] Rehabilitation Therapy Acute Therapy [facility] [place] Physical Therapy Encounter Note Date of Service: 02/24/2020 Subjective/Objective Subjective Reporting Person Comment: I want to sleep. Patient with mostly single word responses and not speaking much during visit. Patient visibally in pain (RN had just administered pain medications). (Simultaneous filing. User may not have seen previous data.) Pain Evaluation Pain Comments: Patient not rating pain, though stating 'owe' after treatment and visibally uncomfortable. Objective Time: 5555-2184 Total Treatment Time (minutes): 15 Timed Code Treatment Minutes: 15 Interventions Included: Procedures Procedures Q-Z: Therapeutic activities Therapeutic Activities Minutes: Patient presented in bed, helmet in room. Patient had just finishedwith OT and wanting to sleep, though agreeable to mobility after much encouragement. Supine>sit with min contact assist of 1. Helmet donned at EOB. Patient requiring min contact assist at edge of bed due to impulsivity (had fall off edge of bed last night due to impulsively standing). Sit<>stand performed x 2 at edge of bed with min to min contact assist of 1. Patient with improved standing balance, though reaching for clinician for support. Side stepping performed at edge of bed to the left. Patient with decreased step clearance with RLE, though following directions better today. Pat ient fatigued during visit today and declining further mobility. Sit>supine with min contact assist of 1. The patient was left in the: bed with the: Call farris in reach Patient Status at the End of the Therapy Session Comments: 1:1 sitter present. Cardiopulmonary: General Assessment: Not evaluated, No problems noted(Documented by RN prior to PT visit. ) Integumentary/Anthropometric Characteristics: Integrity: Non-Intact Location: Head(left cranium incision approximated with ghassan.) - - Patient/Family Education: Education Topics Mobility, Transfers, and Gait: Bed mobility, Mobility recommendations, Transfers Recommendations: Discharge recommendations/planning, Follow-up services Safety: Helmet use, Safety Therapy Specific: Plan of care, Treatment plan/goals, Role of physical therapy Learner Learner: Patient Method: Verbal Barriers to Learning: Cognition Outcome: Requires assist, Needs reinforcement Team Communication: Notification to, Notified: Nurse When: Prior to therapy session, During therapy session, After therapy session By: [id number] communication About Patient Status and Referrals: Patient status, Plan of care, Discharge needs Assessment/Plan Assessment Need for Services Patient has made progress in the areas of:: Patient with improved mobility today and following commands better, though still remains limited due to impaired cognition and decreased safety awareness. Limited mobility performed today; RN recommending PT to attempt treatment in morning (instead of afternoon) as she has been more receptive to mobility in AM. RN reporting [facility] and was more compliant this morning. Patient remains below baseline mobility; continues to be appropriate for acute rehab and is improving daily. Physical Therapy is medically necessary to: Address body structure/function impairments, activity limitations, and participation restriction, Establish and progress mobility/exercise and provide recommendations for staff and safe discharge planning, Facilitate return to prior level of function, Improve safety and independence Justification for Acute Rehab Justification for Acute Rehabilitation: The patient requires acute rehabilitation for multiple therapy disciplines and is expected to tolerate an intensity of 3 hours of therapy at a minimum of 5 days per week. Plan Necessity: Continue per established treatment plan Recommended Discharge Destination: Acute rehabilitation Therapy Specific Services: Physical therapy Equipment Recommended: To be determined by next provider Primary Therapist: Pager: [phone] Mary Clarke PT 02/24/2020 15:31 * Trish Ponce OT - 02/24/2020 4577 EDT [facility] Rehabilitation Therapy Acute Therapy [facility] Occupational Therapy Initial Evaluation Note Date of Service: 02/24/2020 Reason for Referral: Evaluate and treat Diagnosis: Cerebral venous thrombosis>>> resulting in Acute intra-axial hemorrhage left temporal and frontal lobes with Associated subarachnoid hemorrhage over the left hemisphere Precautions: Activity: Activity as tolerated, Ambulate Equipment: Helmet on when OOB(bone flap precautions) Vital signs/cardiac precautions: Vital sign specific precautions Specific vital sign precautions: Notify MD if: SBP is less than 90 or greater than 170 mmHg. Treat for SBP > 160 mmHg Subjective: Subjective Information Reported by: Patient Reporting Person Comment: roberta granados Pain Evaluation Pain Comments: patinet unable to rate and no obvoius pain noted Objective: Patient Profile: Ynes White is a 50 y.o. female admitted on 02/14/2020 secondary to Cerebral venous thrombosis [G08] Cerebral venous sinus thrombosis [G08]. The patient lives at [address] [place] [address] General Information Hand Dominance: Comment(patient unable to state) History of Present Illness/Injury Current Illness / Injury: Per MD H&P note:Ynes White is a 50 y.o. female with a PMHx significant for smoking who presents with a cerebral venous thrombosis and resultant intraparenchymal hemorrhage in the left frontotemporal area. Her [employer] medications include hormone replacement therapy (estradiol- norethindrone), which may be a contributing factor. Will admit for close monitoring and anticoagulation. General Home Environment Safety Assessment / Living Environment Home environment: Apartment(need to clarify) Detailed Home Evaluation Home Equipment Home Equipment: Need to clarify Caregiver Support Amount of Support: Need to clarify Prior Level of Function Prior Level of Function Comment: Need to clarify Level of Assistance Throughout: Independent Basic Activities of Daily Living Basic Activities of Daily Living Comments: anticipate was I, need to clarify Level of Assistance Throughout: Independent Instrumental Activities of Daily Living Occupation Occupation Comment: Need to clarify Other Medical/Surgical History: Current: Patient Active Problem List Diagnosis ??? Back pain ??? Chronic low back pain ??? Encounter for insertion or removal of intrauterine contraceptive device ??? Nicotine dependence, unspecified, uncomplicated ??? Perimenopausal ??? Post concussion syndrome ??? Tobacco abuse ??? Cerebral venous sinus thrombosis ??? Cerebral venous thrombosis ??? Brain herniation (HCC-CMS) ??? Cerebral edema (HCC-CMS) Past: History reviewed. No pertinent past medical history. History reviewed. No pertinent surgical history. Medications: Current Medications: Current medications reviewed Body Functions and Performance Skills: Cardiovascular/Respiratory Systems Function: General Assessment: No problems noted(and deemed stable by nursing documentation) Mental Functions: Arousal/Alertness: Alert, Delayed responses to stimuli, Inconsistent responses to stimuli Eye Opening: Spontaneous Best Verbal: Confused Best Motor: Obeys commands Total Witter Coma Scale: 14 Orientation Level: Oriented to person(unable to verbalize a response to dates even with presented choices) Insight: Impaired Judgement: Impaired Sensory Functions: Touch: Not evaluated secondary to patient unable to participate in formal sensory testing but lighttouch sensation appears intact Vision: difficult to formally assess due to cognitive deficits, min cues needed with self care location of items Hearing: able to understand conversational tones Neuro musculoskeletal and Movement Related Functions: Range of motion: No gross noted functionally. Difficulty with following multi step instructions. Strength: unable to formally assess,patient demonstrating the ability to move all extremities against gravity Skin and Related Structure Functions: Skin Integrity Integrity: Non-Intact Location: Head Wounds Wound Type: Surgical incision Wound Closure: [place] Areas of Occupation and Performance Skills: Basic Activities of Daily Living: Feeding: demonstrates adequate range to complete Grooming: set-up assist needed with grooming task, decreased thoroughness with task, primarily onlybiting the brush. Max assist needed to complete task Lower Body Dressing: to instruction patient able to reach top of socks in order to partially pull up, lack of safety awareness Functional Mobility: supine to sit with step by step cueing and min contact assist. Once seated edge of bed patient able to maintain with supervision to min contact assist. Sit to supine with supervision and cueing. Assist x 2 to boost up in bed Informed Consent: The patient was unable to consent. Consent assumed by physician order. Interventions Completed Today: Occupational Therapy Today At: Time: 13:00 Total Treatment Time (minutes): 18 Interventions Included: No interventions completed today The patient was left in the: bed with the: Call farris in reach Patient Status at the End of the Therapy Session Comments: 1:1 sitter present. Patient/Family Education: Activity/Work/Community: Activity/energy conservation Safety: Helmet use, Safety Therapy Specific: Role of occupational therapy, Treatment plan/goals Learner: Patient Method: Verbal Barriers to Learning: Cognition Outcome: Requires assist, Needs reinforcement Team Communication: Notified: Nurse When: Prior to therapy session, During therapy session, After therapy session By: [id number] communication Assessments: Ynes was appropriate for occupational therapy evaluation due to functional deficits resulting from recent craniectomy for hematoma evacuation on 02/16/20. She presents with impairments of decreasedactivity tolerance, balance, safety awareness, language and cognitive skills. Patient required someencouragement to complete tasks asked during today's assessment. Anticipate at baseline patient wascompletely independent and at this time is well below her baseline as she needs constant cues to perform simple daily tasks as well as for safety management. Anticipate patient will likely make steady progress towards set goals with skilled OT intervention using compensatory techniques and remediation approach. Based on patient age, anticipated baseline level of function, ideally patient would beappropriate for Acute rehab but patient did require encouragement to perform the tasks asked today.Am hopefull as she continus to requires that her participation will also improve. Inpatient rehab will be needed prior to d/c home. Goals: Short Term Goals: n/a [facility] Goals: Barbering Instructor Goals Time Frame: 2-3 weeks Barbering Instructor Goal 1 Goal: patient will consistently follow 2 step instructions with min cues Barbering Instructor Goal 2 Goal: Patient will consistently be oriented x3 with use of visual aid [facility] Goal 3 Goal: Patient will demonstrate proper safety awareness with self-care task with min cues Barbering Instructor Goal 4 Goal: Patient will complete upper body self-care with supervision [facility] Goal 5 Goal: Patient will complete lower body self-care tasks with min cues [facility] Goal 6 Goal: Patient will complete toilet/commode transfer with supervision Plan: Frequency: Times per week Times Per Week: 2-3 x/wk Intensity: 15-45 minutes Duration: Duration of hospitalization Interventions May Include: Cognitive function intervention, Self-care/home management, Therapeutic activities, Therapeutic exercise Patient/Family Education: Discharge planning, Patient education, Equipment, Recommendations, Falls Prevention, Family/caregiver education, Role of physical therapy/occupational therapy/rehabilitation, Safety Recommended Discharge Destination: Acute vs. subacute rehabilitation Therapy Specific Services: Occupational therapy Equipment Recommended: To be determined by next provider TRISH PONCE OT, 02/24/2020, 15:20 Pager: [phone] * Cecelia Azevedo, MS [facility]-RATING CLERK - 02/24/2020 7669 EDT Speech-Language Pathology Clinical Swallow and Cognitive-Communication Consultation RATING CLERK Diagnosis: Aphasia and Dysphagia, oropharyngeal phase Medical Diagnosis: Cerebral venous thrombosis and resultant intraparenchymal hemorrhage in the leftfrontotemporal area Date of Onset: 02/14/20 Date of Referral: 02/14/20 Date of Service: 02/15/2020 Start Time: 1000 Total Therapy minutes: 18 min ( 18 minutes Swallow; 0 minutes Communication- did not participate inlanguage treatment) SUBJECTIVE: It was fun, it's okay, that enough, I'll figure it out Language continues to lack content, empty social responses. OBJECTIVE: History: Per Dr. Marlow's assessment: 50F with tobacco use, cerebral venous thrombosis and intraparenchymal hemorrhage in left frontotemporal area. ??Admitted to Neuro for close monitoring and heparin drip. Initial head??CT at therapeutic dose was stable, but repeat head CT 02/16 demonstrating enlarged hemorrhage with coinciding decreased right sided movement and subsequent dilation of left pupil prompting hypertonic bolus, heparin reversal, mannitol, and OR for emergent Left sided craniectomyand hematoma evacuation. Patient remains intubated post-op. Neuro exam unchanged. Now with acute deep and superficial vein thrombosis in the left upper extremity, on Heparin DVT ppx dosing. Now status post PEG placement with recently improved exam, following commands in bilateral upper extremities.Will wean to extubate today per SICU. CT HEAD WO CONTRAST (Order [id number]) Status: Final result (Exam End: 02/22/2020 21:02) IMPRESSION 1. Postsurgical findings status post decompressive [...] of the left transverse and sigmoid sinuses. PMH: History reviewed. No pertinent past medical history. Current Diet: PEG ,(receiving tube feedings 4x a day per nursing) Dysphagia 4 with Thin Liquids (02/23/20) Diet prior to admission: Suspect Regular Current Status: Cognitive Status: Patient was alert and somewhat cooperative during consultation. Aphasia present. Patient distracted, became agitated. Refusing formal communication tasks. Respiratory Status: Respiratory status was judged to be WFL to support oral feeding. Clinical Swallow Re-Evaluation: Patient/Family: consented to completing the clinical bedside swallow exam. Oral Peripheral Motor Exam: Face: Right sided facial droop. Lips: Reduced strength and range of motion. Tongue: Unable to protrude Velum: Unable to view during the evaluation. Dentition: Adequate dentition. Laryngeal Excursion: Within functional limits with anterior tipping upon palpation. Speech Intelligibility: Reduced precision Vocal Quality: Patient presents with a hoarse vocal quality. Cough: Baseline throat clear present Positioning: Seen at bedside for evaluation. Consistencies Tested: was assessed with thin liquids, puree foods and solid foods (toast with butter). Methods of Delivery: All items were administered by RATING CLERK using a spoon, cup and straw. Oral Phase Findings: Patient presents with oral phase deficits characterized by : ?? Reduced coordination ?? Right anterior bolus loss Pharyngeal Phase: Patient presents with pharyngeal phase dysphagia signs/deficits as suggested by :Slight delay with audible swallows Cough x1 with thin via cup sip Esophageal Phase: No signs indicated Compensatory Strategies: [place] thick liquids Water -Thin via TSP Current Evaluation: Informal measures were utilized to evaluate current speech-language/cognitive-linguistic function. Behavior: During evaluation today, patient presented as sleepy and disengaged. ?? Speech-Language Function: Auditory Comprehension: Commands: simple one step given max verbal and physical cues 1/3 Personal questions 0/4 -Inaccurate even at the personal name level Improved ability to follow simple one step commands and simple y/n questions in context and given visual cues. Liam-Motor Evaluation/Motor Speech: Minimal speech output heard at this time. Voice: Initially aphonic, improved after drinking water. Rough vocal quality The Grade, Roughness, Breathiness, Aesthenia, Strain, Instability (GRBASI) scale was used to assessvocal quality. The GRBASI is a formalized, perceptual scale of voice assessment developed as a minimum analysis of voice quality. Ratings are on a scale of 0-3 (0, normal; 1, slight; 2, moderate; 3, severe) along six parameters. Grade (overall severity of dysphonia): 2 Roughness (psycho-acoustic impression of irregularity of vocal fold vibration): 2 Breathiness (psycho-acoustic impression of the extent of air leakage through the glottis): 1 Asthenia (weakness or lack of power in the voice): 2 Strain (psycho-acoustic impression of hyperfunction during phonation): Instability (changes in vocal quality over time): 3 Source(s): Yamalainahi et al. (2010); Hirano (1981) Verbal Expression: Confrontation Naming: .5/3 - (She was able to say sauce for applesauce) ?? Repetition: 0/2 (name and counting) ?? Spontaneous utterances: I want more please. Awesome, thank you so much Really I'm fine Reading Comprehension: Not formally evaluated. Written Expression: Not formally evaluated. Augmentative/Alternative Communication: ?? Initiation of arm movement for AAC is a barrier. ?? Stimulability for a communication board: ?? Unable to point to objects in a field of two ?? Unable to point to a yes/no board in a field of two Cognitive-Linguistic: Unable to formally evaluate secondary to language deficits. SHORT TERM GOALS: Dysphagia Goals: STG1: The patient will tolerate trials of thin liquids via cup without clinical signs of aspiration, to indicate readiness for an upgrade to Thin liquids. 02/23/20: Patient tolerated thin liquids via straw with no overt s/s of aspiration. RATING CLERK needed to control size of bolus by pinching straw. 02/24/20: Patient tolerated thin liquids via straw with no overt s/s of aspiration. RATING CLERK did not need to pinch straw, patient responded to cues to take small sips. STG2: The patient will trials of Dys 4 diet without clinical signs of aspiration, to indicate readiness for an upgrade 02/23/20: Patient assessed with piece of toast with butter. Patient was able to tolerate with no overt s/s of aspiration. Recommend diet upgrade to Dysphagia 4 solids with Thin Liquids. 02/24/20: Patient tolerated 2 small bites of toast - patient required much encouragement to take po. Patient noted to ask for water for liquids wash. Communication Goals: 01/26/20: Automatic probes: Counting 1-10 at 30%, ELIAS - 0/7, Months of year 0/12 Complex ideational material 0/2 Limited participation. 02/24/20: Patient refusing to participate in formal communication drills. Patient responses are oftenempty, lacking content words. Occasional paraphasic errors noted. STG1: The patient will follow one step directions with 80% accuracy. STG2: The patient will answer personal y/n questions with 80% accuracy Patient/Family Education/Training: Patient/Family education and training was completed today including the role of Speech-Language Pathology, results of today's exam/recommendations and communicationstrategies. Learner: patient Method of Education: Verbal Barriers to Learning/Education: language impairment Patient: needs further instruction and education Family: was not present Consulted with nursing regarding diet texture recommendation and safe swallowing strategies. Assessment /Clinical Impressions: is a 50 y.o. female status post IPH in left frontotemporal area, who had increased hemorrhage on 02/16, for which she went to the OR for emergent left sided craniectomy and hematoma evacuation. She was extubated early this morning. Team requested a swallow evaluation post extubation to assess risk of laryngeal penetration/aspiration. currently presents with a mild oropharyngeal dysphagia, however overall improved as characterized reduced oral coordination; and mildly delayed initiation of the swallow with audible swallows, but adequate height of excursion in the pharyngeal phase. Etiology of dysphagia is patient's left IPH. remains at moderate risk of aspiration at this time. Compensatory strategies ofcontrolling size of bolus and diet texture modification appear effective in decreasing risk of aspiration. Prognosis for improvement in swallow function is judged to be good at this time secondary toanticipated neurologic recovery. Patient presently on a Dysphagia 4 solids with Thin Liquids diet and appears to be tolerating, limited po intake, calorie counts. A cognitive communication consultation was attempted with limited participation. Patient demonstrates severe comprehension and expressive communication impairments, with expression abilities better than her comprehension abilities at this time. With comprehension, she is able to inconsistently follow simple directions in context, using visual cues. With expression, she is inconsistently able to verbalize simple spontaneous utterances in context. She will benefit from her needs being anticipatedand simplified information presented to her. Information should be repeated and said in different ways, and augmented with pictures and gestures. Of note she presented with a mild rough vocal qualitys/p extubation. Functional Communication Measures ([place] [employer], 2002). The Functional Communication Measures (FCM???s) are a series of 7 point rating scales, ranging fromleast functional (Level 1) to most functional (Level 7). They have been developed by [employer] to describe different aspects of patient???s functional communication and swallowing abilities over the course of RATING CLERK intervention. Spoken Language Comprehension Level: 2 Level 2 - With consistent, maximal cues, the individual is able to follow simple directions, respond to simple yes/no questions in context, and respond to simple words or phrases related to personal needs. Spoken Language Expression Level: 3 Level 3 - The communication partner must assume responsibility for structuring the communication exchange, and with consistent and moderate cueing, the individual can produce words and phrases that are appropriate and meaningful in context. Swallowing Level 5: Swallowing is safe with minimal diet restriction and/or occasionally requires minimal cueing to use compensatory strategies. The individual may occasionally self-cue. All nutrition and hydration needs are met by mouth at mealtime. GOALS: Dysphagia Goals: STG1: The patient will tolerate trials of thin liquids via cup without clinical signs of aspiration, to indicate readiness for an upgrade to Thin liquids. STG2: The patient will trials of Dys 4 diet without clinical signs of aspiration, to indicate readiness for an upgrade Communication Goals: STG1: The patient will follow one step directions with 80% accuracy. STG2: The patient will answer personal y/n questions with 80% accuracy Plan /Recommendations: Patient will continue to benefit for further RATING CLERK intervention in this setting to address dysphagia management and intervention needs. As a result of the dysphagia evaluation, the following recommendations are provided to maximize swallow function and to minimize risk of dysphagia and its ramifications: DIET: Impeccable oral care is essential in maintaining oral hygiene and minimizing harmful bacteria. Please upgrade diet to Dys 4 texture with Thin liquids. MEDICATIONS: Medication should be administered crushed with applesauce. FEEDING/EATING STRATEGIES: Patient needs assist with meals and self feeding. Communication Access and Shared Decision Making Recommendations Please support communication access and shared decision making ability by doing the following: Support Comprehension: ?? Have a pen and paper ready when communicating. ?? Please present information slowly and simplify. Augment with drawings, diagrams, gestures and pointing. ?? Ask one question at a time. ?? Have only one person speak at a time. Environmental modifications: ??? Simplify the environment: Carryover/Discharge and Healthcare Decision making considerations ??? Will need family support for the successful carryover of discharge recommendations. ?? Currently comprehension of non-contextual information is a barrier RATING CLERK follow-up: Patient will continue to be followed while on Acute Care. Please page the #[phone] if the patient's needs require more immediate RATING CLERK intervention. Discharge Plan: Recommend Acute Multidisciplinary Rehabilitation Program. CECELIA AZEVEDO MS CCC-RATING CLERK 02/24/2020 13:49 Cecelia Azevedo MS, CCC-RATING CLERK Speech Language Pathologist Pager [phone] (Saturday - Saturday [phone]) Pager # [phone] ([facility] RATING CLERK Department) * Frank Hardwick MD - 02/24/2020 1223 EDT Hematology Progress Note Admit Date: 02/14/2020 Hospital Day: LOS: 10 days Date of Service: 02/24/2020 Medications: Current Facility-Administered Medications: acetaminophen (TYLENOL) tablet 1,000 [...] chewable tablet tablet,chewable 1 Tab oral QIDPRN dextrose 50 % solution 12.5 g intravenous PRN docusate (COLACE) liquid 100 mg oral BID enoxaparin (LOVENOX) injection 40 mg subcutaneous DAILY glucagon injection 1 mg intramuscular PRN hydrALAzine (APRESOLINE) 10 mg in sodium chloride (NS) 0.9 % 50 mL IVPB intravenous Q1H PRN HYDROmorphone (DILAUDID) tablet 2-4 mg oral Q4H PRN insulin aspart U-100 (NOVOLOG FLEXPEN) injection subcutaneous QHS insulin aspart U-100 (NOVOLOG FLEXPEN) injection subcutaneous TID WC lidocaine (XYLOCAINE) 2 % viscous solution lisinopriL (PRINIVIL) tablet 20 mg oral DAILY melatonin tablet 3 mg oral QHS metoprolol (LOPRESSOR) injection 5 mg intravenous Q6H Multivitamins with minerals + ferrous gluconate (CENTRUM) oral solution 15 mL feeding tube DAILY nicotine (NICODERM CQ) 7 mg/24 hr patch 1 Patch transdermal Q24H nutren 1.5 liquid 250 mL per g tube QID ondansetron (PF) (ZOFRAN) injection 4 mg intravenous Q4H PRN pantoprazole (PROTONIX) tablet 40 mg oral DAILY papain-alpha amylase-cellulase (CLOG ZAPPER) 2-5 mL feeding tube PRN phenylephrine-lidocaine 0.25 %-3 % (CO-PHENYLCAINE) topical solution 5 mL topical ONCE QUEtiapine (SEROQUEL) tablet 25 mg oral QHS senna (SENOKOT) tablet 1 Tab oral BID Objective: VS: Patient Vitals for the past 8 hrs: BP Pulse Heart Rate Resp Temp SpO2 O2 Device 02/24/20 1010 133/86 101 -- 18 36.8 ??C (98.2 ??F) -- None 02/24/20 0543 134/69 -- 84 BPM 18 35.7 ??C (96.3 ??F) 100 % None Weight: Weight : 93.7 kg (206 lb 8 oz) Data Review: Labs: CBC: Recent Labs 02/22/2022802/23/20 0542 02/24/20 0558 WBC 9.61 8.07 8.14 HGB 10.7* 10.9* 10.8* HCT 32.3* 32.5* 31.7* MCV 99* 97 97 PLT 256 301 326 Incorrect component name entered: ABS NEUTROPHILS BMP: Recent Labs 02/22/2022802/23/2042 02/23/20 1433 02/23/20 2135 02/24/20 0558 CREATININE 0.49* -- 0.47* -- -- 0.42* BUN 21 -- 18 -- -- 17 NA 137 < > 136 137 136 136 K 3.9 < > 3.4* 3.8 3.9 3.6 CL 111* < > 110 108 109 107 CO2 19* < > 19* 21* 21* 22 PHOS 4.1 -- 3.6 -- -- 3.8 MG 2.2 -- 1.9 -- -- 2.0 < > = values in this interval not displayed. Coags: Recent Labs 02/22/2022802/23/2042 02/24/20 0558 PROTIME 14.3* 14.9* 13.5* INR 1.2* 1.3* 1.2* PTT 37 35 37 Assessment: This is a case of a 51 years old lady with history of smoking who presented with cerebral vein thrombosis with intracerebral bleeding associated with a left upper extremity DVT and a PE requiring urgent surgical decompression and craniotomy due to progression of her bleed after starting heparin. Patient is currently recovering from her surgery she has been extubated has a feeding tube and workingwith physical therapy. She has been started on Lovenox 40 mg subcu daily as a prophylactic dose of anticoagulation. Work-up for her extensive thrombosis so far is nonconclusive, lupus antibody was not detected the cardiolipin IgM was mildly elevated and the beta-2 glycoprotein was negative. Protein C was reduced but that could be the case in any acute thrombotic events. At this point the main target is to place this patient on full dose anticoagulation as soon as possible, which appears to be on 25 February which would be 10 days after surgery as per neurosurgery. In regards of long-term follow-up and planning she will definitely need to be seen later in thrombosis hemostasis program to discuss work-up for this thrombophilia and choice and duration of anticoagulation. Recommendations: -Would start IV heparin as per heparin drip protocol on 02/26/2020 -Follow CBC daily with frequent neuro checks while on heparin with a low threshold for head CT in case of mental status deterioration -If patient does well on heparin over the weekend, then we can discuss switching to Lovenox at therapeutic dose prior to discharge. -Patient will probably be discharged to a rehab, therefore the best plan would be discharging her on Lovenox as a therapeutic dose with a plan to bridge to warfarin later when she recovers from her acute illness -THP follow-up after discharge. Patient discussed with Dr.Adrianzen Frank Hardwick MD PGY4 Hematology/Oncology pager [phone]. Cosigned by Aron Betancourt MD at 02/24/2020 12:29 EDT * Abena Haskins - 02/24/2020 1101 EDT Case Management Note I spoke to Kisha Prasad,PT at [facility]. She has questions about patient's cognition and ability/willingness to participate in program. Isabell has a 1:1 sitter for impulsivity and safety presence. I met with Ynes at bedside and she was pleasant and agreeable. Verbalized that she wants to go to Rehab and wants to get better. With Isabell's permission I called her sister Lucille, she is also in agreement with AR at [facility]. I shared with Lucille that Isabell is resistant at times to participating with PT/OT. Lucille advised not to take no for an answer and to remind Isabell that her family insist she participate. Lucille states that upon d/c, she and brother Ken can provide significant support as well as her boyfriend Ever, they all live close by. Lucille would like to be first contact [phone]. I reported back above info to Kisha. Licha Haskins RN CM #[id number] * Kisha Prasad RN - 02/24/2020 1003 EDT [facility] Inpatient Acute Rehabilitation Unit on the [facility] Admission Coordinator Initial Assessment Reason for Hospitalization: Admitted 02/13 after left frontotemporal IPH secondary to cerebral venous sinus thrombosis. Expansion of IPH on 02/15 emergent craniectomy and clot removal. Living Arrangements: Apartment in [place], [place] (limited data) Brother/sister listed on tx team sticky note, Friend Ever listed as another contact. Current Functional Status: Min Ax2 for safety. Patient/Caregiver Education: Reviewed clinical documentation in [employer] Social Supports/Discharge Plan: unclear, spoke with Yehuda Smith - she is planning to reach out to family. Insurance/Financial Needs: Medicaid Review of Acute IP Rehab Admission Criteria Condition causing need for acute rehabilitation: ??? Patient has a significant decline in function as the result of BI Non-Traumatic. Need for Close Medical Supervision: ??? An acute inpatient rehab setting is medically necessary to monitor and manage the ongoing medical and functional concerns and to develop and oversee the plan of care. Appropriate Therapy Needs: ??? Patient requires the active and ongoing therapeutic intervention of acute rehab intensity therapy including physical therapy. . Intensive Therapy: ??? Additional information is needed: Patient did participate in PT on 02/18. RATING CLERK is recommending Acute Rehab. Patient does clearly have goals with deficits as: right sided weakness, impaired cognition with decreased safety awareness, aphasia and dysphagia. Would like to see how therapy sessions go this afternoon vs tomorrow AM. Initial Determination for [facility]'s Acute Inpatient Rehabilitation Center: ??? Acute Rehab Determination Deferred - pending progression with therapy and Physiatry review. Of note patient had an assisted fall 02/22and does require a 1:1 sitter- this is not a barrier to admission to Acute Rehab. Plan: ??? Rehab Admission Coordinator will continue to follow daily. ??? Rehab Tip Tester to Consult and follow. ??? Thank you. This IRF Eligibility Assessment is subject to change: The above documented assessment is based on information available and this patient???s status on this date. For final determination, this patientmust meet all of the IP Rehab Eligibility Criteria on the day of admission to an IRF. If the information available and/or patient???s status changes between the timing of this assessment and the timepatient is ready for discharge from the acute care hospital, then the eligibility assessment may change. * Mary Clarke, PT - 02/24/2020 0930 EDT [facility] Physical Therapy Contact Note Date of Service: 02/24/2020 PT treatment attempted this morning; OT had just left room and per discussion, patient had just returned to bed and declined OT treatment. PT to follow up this afternoon vs later this week for treatment as indicated. Mary Clarke, JUWAN 02/24/2020 9:30 * Trish Ponce OT - 02/24/2020 0917 EDT [facility] Occupational Therapy Contact Note Date of Service: 02/24/2020 Attempted to see patient in OT this am, but per 1:1 patient just got back to bed. Patient also declined stating just go away. OT will attempt to follow-up later today as time allows, otherwise OT will follow-up later this week. 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 Awake, alert Unable to answer orientation questions correctly due to aphasia Says Yeah when asked how she is doing Gaze conjugate Pupils equal, round, reactive Smile symmetric Follows simple commands x4 Fire Chief'S Aide, biceps, triceps full bl IP full bl Incision C/D/I Flap full, soft Assessment/ 50F with tobacco use, cerebral venous thrombosis and intraparenchymal hemorrhage in left frontotemporal area. Initially admitted to Neurosurgery for close monitoring and heparin drip. Initial head CTat therapeutic dose was stable, but repeat head CT 02/16 demonstrating enlarged hemorrhage with coinciding decreased right sided movement and subsequent dilation of left pupil prompting hypertonic bolus, heparin reversal, mannitol, and OR for emergent Left sided craniectomy and hematoma evacuation. Later found to have acute deep and superficial vein thrombosis in the left upper extremity, on lovenox DVT ppx dosing. Now status post PEG placement. Neuro exam stable - awake, alert, follows simple commands, continues to be aphasic. Dispo planning, will continue to discuss timing of restarting fullanticoagulation. Plan/ Q4h neuro checks SBP <160 Appreciate hematology recommendation Appreciate RATING CLERK recommendations - Dysphagia 4 diet with thin liquids Goal Na normonatremia, daily labs Repeat head CT if neuro decline Lovenox 40 mg qhs, favor holding off on full anticoagulation until 10 days postop (02/26/20) PT/OT Floor, dispo planning Damon Eckert MD 02/24/2020 5:33 Page 3571 with questions Cosigned by Dane Mcwilliams MD at 02/24/2020 8:37 EDT * Cecelia Azevedo MS [facility]-RATING CLERK - 02/23/2020 1508 EDT Speech-Language Pathology Clinical Swallow and Cognitive-Communication Consultation RATING CLERK Diagnosis: Aphasia and Dysphagia, oropharyngeal phase Medical Diagnosis: Cerebral venous thrombosis and resultant intraparenchymal hemorrhage in the leftfrontotemporal area Date of Onset: 02/14/20 Date of Referral: 02/14/20 Date of Service: 02/15/2020 Start Time: 1350 Total Therapy minutes: 25 min ( 15 minutes Swallow; 10 minutes Communication evaluation) SUBJECTIVE: No, not right now, I just can't during RATING CLERK probes with communication. OBJECTIVE: History: Per Dr. Marlow's assessment: 50F with tobacco use, cerebral venous thrombosis and intraparenchymal hemorrhage in left frontotemporal area. ??Admitted to Neuro for close monitoring and heparin drip. Initial head??CT at therapeutic dose was stable, but repeat head CT 02/16 demonstrating enlarged hemorrhage with coinciding decreased right sided movement and subsequent dilation of left pupil prompting hypertonic bolus, heparin reversal, mannitol, and OR for emergent Left sided craniectomyand hematoma evacuation. Patient remains intubated post-op. Neuro exam unchanged. Now with acute deep and superficial vein thrombosis in the left upper extremity, on Heparin DVT ppx dosing. Now status post PEG placement with recently improved exam, following commands in bilateral upper extremities.Will wean to extubate today per SICU. CT HEAD WO CONTRAST (Order [id number]) Status: Final result (Exam End: 02/22/2020 21:02) IMPRESSION 1. Postsurgical findings status post decompressive [...] of the left transverse and sigmoid sinuses. PMH: History reviewed. No pertinent past medical history. Current Diet: PEG , Dysphagia 2 with Thin Liquids (02/22/20) Diet prior to admission: Suspect Regular Current Status: Cognitive Status: Patient was alert and somewhat cooperative during consultation. Aphasia present. Patient distracted, became agitated. Respiratory Status: Respiratory status was judged to be WFL to support oral feeding. Clinical Swallow Re-Evaluation: Patient/Family: consented to completing the clinical bedside swallow exam. Oral Peripheral Motor Exam: Face: Right sided facial droop. Lips: Reduced strength and range of motion. Tongue: Unable to protrude Velum: Unable to view during the evaluation. Dentition: Adequate dentition. Laryngeal Excursion: Within functional limits with anterior tipping upon palpation. Speech Intelligibility: Reduced precision Vocal Quality: Patient presents with a hoarse vocal quality. Cough: Baseline throat clear present Positioning: Seen at bedside for evaluation. Consistencies Tested: was assessed with thin liquids, puree foods and solid foods (toast with butter). Methods of Delivery: All items were administered by RATING CLERK using a spoon, cup and straw. Oral Phase Findings: Patient presents with oral phase deficits characterized by : ?? Reduced coordination ?? Right anterior bolus loss Pharyngeal Phase: Patient presents with pharyngeal phase dysphagia signs/deficits as suggested by :Slight delay with audible swallows Esophageal Phase: No signs indicated Compensatory Strategies: [place] thick liquids Water -Thin via TSP Current Evaluation: Informal measures were utilized to evaluate current speech-language/cognitive-linguistic function. Behavior: During evaluation today, patient presented as sleepy and disengaged. ?? Speech-Language Function: Auditory Comprehension: Commands: simple one step given max verbal and physical cues 1/3 Personal questions 0/4 -Inaccurate even at the personal name level Improved ability to follow simple one step commands and simple y/n questions in context and given visual cues. Liam-Motor Evaluation/Motor Speech: Minimal speech output heard at this time. Voice: Initially aphonic, improved after drinking water. Rough vocal quality The Grade, Roughness, Breathiness, Aesthenia, Strain, Instability (GRBASI) scale was used to assessvocal quality. The GRBASI is a formalized, perceptual scale of voice assessment developed as a minimum analysis of voice quality. Ratings are on a scale of 0-3 (0, normal; 1, slight; 2, moderate; 3, severe) along six parameters. Grade (overall severity of dysphonia): 2 Roughness (psycho-acoustic impression of irregularity of vocal fold vibration): 2 Breathiness (psycho-acoustic impression of the extent of air leakage through the glottis): 1 Asthenia (weakness or lack of power in the voice): 2 Strain (psycho-acoustic impression of hyperfunction during phonation): Instability (changes in vocal quality over time): 3 Source(s): Yvrose et al. (2010); Hirano (1981) Verbal Expression: Confrontation Naming: .5/3 - (She was able to say sauce for applesauce) ?? Repetition: 0/2 (name and counting) ?? Spontaneous utterances: I want more please. Awesome, thank you so much Really I'm fine Reading Comprehension: Not formally evaluated. Written Expression: Not formally evaluated. Augmentative/Alternative Communication: ?? Initiation of arm movement for AAC is a barrier. ?? Stimulability for a communication board: ?? Unable to point to objects in a field of two ?? Unable to point to a yes/no board in a field of two Cognitive-Linguistic: Unable to formally evaluate secondary to language deficits. SHORT TERM GOALS: Dysphagia Goals: STG1: The patient will tolerate trials of thin liquids via cup without clinical signs of aspiration, to indicate readiness for an upgrade to Thin liquids. 02/23/20: Patient tolerated thin liquids via straw with no overt s/s of aspiration. RATING CLERK needed to control size of bolus by pinching straw. STG2: The patient will trials of Dys2/3 diet without clinical signs of aspiration, to indicate readiness for an upgrade 02/23/20: Patient assessed with piece of toast with butter. Patient was able to tolerate with no overt s/s of aspiration. Recommend diet upgrade to Dysphagia 4 solids with Thin Liquids. Communication Goals: 01/26/20: Automatic probes: Counting 1-10 at 30%, ELIAS - 0/7, Months of year 0/12 Complex ideational material 0/2 Limited participation. STG1: The patient will follow one step directions with 80% accuracy. STG2: The patient will answer personal y/n questions with 80% accuracy Patient/Family Education/Training: Patient/Family education and training was completed today including the role of Speech-Language Pathology, results of today's exam/recommendations and communicationstrategies. Learner: patient Method of Education: Verbal Barriers to Learning/Education: language impairment Patient: needs further instruction and education Family: was not present Consulted with nursing regarding diet texture recommendation and safe swallowing strategies. Assessment /Clinical Impressions: is a 50 y.o. female status post IPH in left frontotemporal area, who had increased hemorrhage on 02/16, for which she went to the OR for emergent left sided craniectomy and hematoma evacuation. She was extubated early this morning. Team requested a swallow evaluation post extubation to assess risk of laryngeal penetration/aspiration. currently presents with a mild oropharyngeal dysphagia, however overall improved as characterized reduced oral coordination; and mildly delayed initiation of the swallow with audible swallows, but adequate height of excursion in the pharyngeal phase. Etiology of dysphagia is patient's left IPH. remains at moderate risk of aspiration at this time. Compensatory strategies ofcontrolling size of bolus and diet texture modification appear effective in decreasing risk of aspiration. Prognosis for improvement in swallow function is judged to be good at this time secondary toanticipated neurologic recovery. Recommend diet upgrade to Dysphagia 4 solids with Thin Liquids A cognitive communication consultation was attempted with limited participation. Patient demonstrates severe comprehension and expressive communication impairments, with expression abilities better than her comprehension abilities at this time. With comprehension, she is able to inconsistently follow simple directions in context, using visual cues. With expression, she is inconsistently able to verbalize simple spontaneous utterances in context. She will benefit from her needs being anticipatedand simplified information presented to her. Information should be repeated and said in different ways, and augmented with pictures and gestures. Of note she presented with a mild rough vocal qualitys/p extubation. Functional Communication Measures ([place] [employer], 2002). The Functional Communication Measures (FCM???s) are a series of 7 point rating scales, ranging fromleast functional (Level 1) to most functional (Level 7). They have been developed by [facility] to describe different aspects of patient???s functional communication and swallowing abilities over the course of RATING CLERK intervention. Spoken Language Comprehension Level: 2 Level 2 - With consistent, maximal cues, the individual is able to follow simple directions, respond to simple yes/no questions in context, and respond to simple words or phrases related to personal needs. Spoken Language Expression Level: 3 Level 3 - The communication partner must assume responsibility for structuring the communication exchange, and with consistent and moderate cueing, the individual can produce words and phrases that are appropriate and meaningful in context. Swallowing Level 5: Swallowing is safe with minimal diet restriction and/or occasionally requires minimal cueing to use compensatory strategies. The individual may occasionally self-cue. All nutrition and hydration needs are met by mouth at mealtime. GOALS: Dysphagia Goals: STG1: The patient will tolerate trials of thin liquids via cup without clinical signs of aspiration, to indicate readiness for an upgrade to Thin liquids. STG2: The patient will trials of Dys2/3 diet without clinical signs of aspiration, to indicate readiness for an upgrade Communication Goals: STG1: The patient will follow one step directions with 80% accuracy. STG2: The patient will answer personal y/n questions with 80% accuracy Plan /Recommendations: Patient will continue to benefit for further RATING CLERK intervention in this setting to address dysphagia management and intervention needs. As a result of the dysphagia evaluation, the following recommendations are provided to maximize swallow function and to minimize risk of dysphagia and its ramifications: DIET: Impeccable oral care is essential in maintaining oral hygiene and minimizing harmful bacteria. Please upgrade diet to Dys 4 texture with Thin liquids. MEDICATIONS: Medication should be administered crushed with applesauce. FEEDING/EATING STRATEGIES: Patient needs assist with meals and self feeding. Communication Access and Shared Decision Making Recommendations Please support communication access and shared decision making ability by doing the following: Support Comprehension: ?? Have a pen and paper ready when communicating. ?? Please present information slowly and simplify. Augment with drawings, diagrams, gestures and pointing. ?? Ask one question at a time. ?? Have only one person speak at a time. Environmental modifications: ??? Simplify the environment: Carryover/Discharge and Healthcare Decision making considerations ??? Will need family support for the successful carryover of discharge recommendations. ?? Currently comprehension of non-contextual information is a barrier RATING CLERK follow-up: Patient will continue to be followed while on Acute Care. Please page the #[phone] if the patient's needs require more immediate RATING CLERK intervention. Discharge Plan: Acute Multidisciplinary Rehabilitation Program. 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 Objective/ BP 127/71 (BP Cuff Location: Left arm, BP Patient Position: Semi fowlers) Pulse 95 Temp 36.7 ??C (98.1 ??F) (Tympanic) Resp 18 Ht 170.2 cm (67) Wt 93.7 kg (206 lb 8 oz) SpO2 96% BMI 32.34 kg/m?? GCS 13 (E4,V3,M6) Eyes open to voice, left eye swelling improving Gaze conjugate Pupils equal, round, reactive Smile symmetric Mimics - squeezes hands with bilateral upper extremities, biceps and triceps full strength. Difficulty with comprehending more complex commands Incision C/D/I Flap full, soft Assessment/ 50F with tobacco use, cerebral venous thrombosis and intraparenchymal hemorrhage in left frontotemporal area. Initially admitted to Neurosurgery for close monitoring and heparin drip. Initial head CTat therapeutic dose was stable, but repeat head CT 02/16 demonstrating enlarged hemorrhage with coinciding decreased right sided movement and subsequent dilation of left pupil prompting hypertonic bolus, heparin reversal, mannitol, and OR for emergent Left sided craniectomy and hematoma evacuation. Later found to have acute deep and superficial vein thrombosis in the left upper extremity, on Heparin DVT ppx dosing. Now status post PEG placement with recently improved exam. However with mixed receptive and expressive aphasia. Pending acute rehab. Plan/ Q4h neuro checks SBP <160 Appreciate hematology recommendation Appreciate RATING CLERK recommendations Goal Na normonatremia, q8h Na checks Repeat head CT if neuro decline Floor Kevin Rinaldi MD 02/23/2020 4:30 Page 2005 with questions Cosigned by Christian Conley MD at 02/23/2020 9:38 EDT * Cecelia Azevedo MS CCC-RATING CLERK - 02/22/2020 1524 EDT Speech-Language Pathology Contact Note RATING CLERK returns today to provide diagnostic/therapeutic intervention for dysphagia. Patient lying in bed with lunch tray bedside. Patient refused dysphagia treatment to assess for potential upgrade despite much encouragement from RATING CLERK and RN. Please refer to the following recommendations: DIET: Impeccable oral care is essential in maintaining oral hygiene and minimizing harmful bacteria. Please upgrade diet to Dys2 texture with Thin liquids. Please allow teaspoons of water between meals when patient's mouth is clean and clear of food residue. MEDICATIONS: Medication should be administered crushed with applesauce. FEEDING/EATING STRATEGIES: Patient needs assist with meals and self feeding. Comments/Considerations: Speech-Language Pathologist to return within 24 hours. Cecelia Azevedo MS, CCC-RATING CLERK Speech Language Pathologist Pager #[phone] (Saturday - Saturday [phone]) Pager # [phone] (Float RATING CLERK Department) CECELIA AZEVEDO MS CCC-RATING CLERK 02/22/2020 15:25 * Socorro Stoo DO - 02/22/[address] [facility] NEUROLOGY PROGRESS NOTE PATIENT NAME: Ynes White PCP: Alejandrina Carrillo DATE OF ADMISSION: 02/14/2020 DATE OF SERVICE: 02/22/2020 CODE STATUS: Full Code PRIMARY DIAGNOSIS: Cerebral venous thrombosis with resultant left frontotemporal hemorrhage OVERNIGHT EVENTS/SUBJECTIVE: - No acute overnight events - Doing okay this morning - has a mild headache - moving all extremities MEDICATIONS: Current Facility-Administered Medications: acetaminophen (TYLENOL) tablet 1,000 mg oral Q6H Or acetaminophen (TYLENOL) solution unit dose cup 995 mg per ng tube Q6H Or acetaminophen (TYLENOL) suppository 975 mg rectal Q6H amino acids-protein hydrolysate (PRO SOURCE NOCARB) packet 60 mL feeding tube BID aspirin chewable tablet 81 mg oral DAILY bisacodyL (DULCOLAX) suppository 10 mg rectal Q48H PRN dextrose 50 % solution 12.5 g intravenous PRN docusate (COLACE) liquid 100 mg oral BID enoxaparin (LOVENOX) injection 40 mg subcutaneous DAILY glucagon injection 1 mg intramuscular PRN hydrALAzine (APRESOLINE) injection 10 mg intravenous Q1H PRN HYDROmorphone (DILAUDID) tablet 2-4 mg oral Q4H PRN HYDROmorphone (PF) (DILAUDID) 0.5 mg/0.5 mL syringe 0.2 mg intravenous Q4H PRN insulin aspart U-100 (NOVOLOG FLEXPEN) injection subcutaneous Q6H labetaloL (TRANDATE) injection 20 mg intravenous Q4H PRN lidocaine (XYLOCAINE) 2 % viscous solution lisinopriL (PRINIVIL) tablet 20 mg oral DAILY melatonin tablet 3 mg oral QHS metoprolol (LOPRESSOR) injection 5 mg intravenous Q6H Multivitamins with minerals + ferrous gluconate (CENTRUM) oral solution 15 mL feeding tube DAILY nicotine (NICODERM CQ) 7 mg/24 hr patch 1 Patch transdermal Q24H ondansetron (PF) (ZOFRAN) injection 4 mg intravenous Q4H PRN papain-alpha amylase-cellulase (CLOG ZAPPER) 2-5 mL feeding tube PRN phenylephrine-lidocaine 0.25 %-3 % (CO-PHENYLCAINE) topical solution 5 mL topical ONCE senna (SENOKOT) tablet 1 Tab oral BID sodium chloride 3 % infusion intravenous CONTINUOUS REVIEW OF SYSTEMS: Pertinent positives and negatives as per HPI. Limited due to patient's aphasia. General Exam: General appearance: Laying in bed, appears comfortable, no acute distress. Skin: Skin color, temperature, turgor normal. HEENT: Surgical ghassan in place over left scalp. Left eyelid minimally swollen. Lungs: No increased work of breathing Extremities: all extremities warm. Neurological Exam: Mental Status/Language: Awake and alert. Answers questions appropriately. Follows simple commands consistently, more difficulty with complex commands. Cranial Nerves: EOMI. Face appears symmetric except minimally swollen left eye. Hearing grossly intact to voice. Motor: Normal muscle bulk. No abnormal spontaneous movements. Holds both arms antigravity without drift. Reflexes: Deferred Sensation: Deferred. Cerebellar: Not formally tested, though no dysmetria with movements. Gait: Deferred. LABORATORY: CBC: Recent Labs 02/20/20 0648 02/21/2023102/22/20228 WBC 9.74 9.46 9.61 RBC 3.22* 3.28* 3.28* HGB 10.8* 10.9* 10.7* HCT 33.0* 33.2* 32.3* MCV 103* 101* 99* MCH 33.5* 33.2 32.6 MCHC 32.7 32.8 33.1 PLT 229 235 256 BMP: Recent Labs 02/20/20 0648 02/21/20 0232 02/21/20 1252 02/21/201 02/22/20228 NA 142 < > 138 137 146* 137 K 3.5 < > 3.9 4.0 3.3* 3.9 CL 112* < > 109 109 120* 111* CO2 26 < > 22 20* 20* 19* BUN 23 -- 23 -- -- 21 CREATININE 0.50* -- 0.45* -- -- 0.49* MG 2.2 -- 2.2 -- -- 2.2 PHOS 4.1 -- 4.4 -- -- 4.1 < > = values in this interval not displayed. Coags: Recent Labs 02/20/20 0648 02/21/2023102/22/20228 PROTIME 13.1 12.7 14.3* INR 1.1 1.1 1.2* PTT 31 32 37 LFT: No results for input(s): TBIL, ALKPHOS, AST, ALT, LIPASE, AMYLASE in the last 72 hours. ABG: NEUROIMAGING STUDIES: Personally reviewed. CT HEAD WO CONTRAST 02/12/2020 IMPRESSION: No acute abnormality. CT HEAD WO CONTRAST 02/14/2020 IMPRESSION: 1. Acute intra-axial hemorrhage left temporal and frontal lobes the approximately 5.8 by 3.5 by 4.8cm. Associated subarachnoid hemorrhage over the left hemisphere. 2. 2 mm [id number] midline shift. CTA HEAD NECK 02/14/2020 IMPRESSION No significant abnormality of the major intracranial or cervical arterial vasculature. Please referto dedicated CT venogram for findings of venous thrombosis and slight increase in intraparenchymal hemorrhage. CT HEAD VENOGRAM W CONTRAST 02/14/2020 IMPRESSION 1. Venous thrombosis in the left internal jugular vein, sigmoid and transverse sinus as well as thevein of Kristen. 2. Intraparenchymal hemorrhage related to the venous thrombosis has increased slightly from prior. ?? 3. Unchanged midline shift. No evidence of herniation. CT HEAD WO CONTRAST 02/15/2020 IMPRESSION 1. Unchanged size and mass effect of the intraparenchymal hemorrhages compared to [address] angiogram 8 hours prior. No evidence of herniation. 2. Venous thrombosis as above. CT HEAD WO CONTRAST 02/15/2020 IMPRESSION Interval increase in size of medial component of the parenchymal hematoma in the left temporal and parietal lobes, now with overall size measuring 6.9 x 5.0 x 4.4 cm. There is worsened rightward midline shift of 9 mm compared to [address] HEAD WO CONTRAST 02/16/2020 IMPRESSION 1. Slight interval increase in the size of the parenchymal hematoma in the left temporal and parietal as well as associated vasogenic edema and mass effect. 2. Mild dilatation of the right lateral ventricle and the temporal horn of the left lateral ventricle suggesting ventricular entrapment. 3. Dural venous sinus and cortical vein thrombosis. CT HEAD WO CONTRAST 02/16/2020 IMPRESSION 1. Expected postoperative changes related to evacuation of left temporoparietal parenchymal hematoma. Small residual hemorrhages are present at the periphery of the evacuation site. 2. There is been improved left to right midline shift, currently 8 mm, previously 10 mm. 3. High density is again seen in the left transverse sinus and left vein of Kristen corresponds to known venous thrombosis. CT VENOGRAM HEAD W CONTRAST 02/17/2020 IMPRESSION 1. Dural venous sinus thrombosis within the left transverse sinus, and to a lesser extent the righttransverse sinus, left sigmoid sinus and internal jugular vein, as well as within the left vein of Kristen, not significantly changed compared to the 02/14/2020 CT venogram. 2. Postsurgical changes related to left parenchymal hematoma evacuation with increasing fluid in the soft tissues surrounding the craniectomy. 3. No new or enlarging intracranial hemorrhage with slight interval improvement of local mass effect. Left uncal herniation is unchanged. ?? OTHER DIAGNOSTIC STUDIES: N/A ASSESSMENT: Ynes White is a 50 y.o. woman with a past medical history significant for anxiety/depression and tobacco use disorder who presented with headache and found to have a left cerebral venous thrombosis and resultant intraparenchymal hemorrhage in the left frontotemporal area. Her [employer] hormone replacement therapy (estradiol-norethindrone), family history of cancer, and active tobacco use may be contributing factors to underlying hypercoagulable state. No evidence of malignancy on CT chest/abdomen/pelvis. Exam declined and is now s/p left hemicraniectomy and hematoma evacuation on 02/15. Needs to restart anticoagulation JAVID. RECOMMENDATIONS: - Resume therapeutic anticoagulation JAVID - q1h neuro checks - Hematology for hypercoagulable work up - Factor V leiden negative, cardiolipin antibody negative, protein S 150 (high) and C 55 (low), lupus anticoagulant cascade pending, and beta 2 glycoprotein negative - DVT present in left upper extremity - Echo completed; no thrombus, no evidence of R heart strain - CT chest/abdomen/pelvis showing acute pulmonary embolism - No IVC filter per hematology/IR - Enoxaparin for DVT prophylaxis - PT/OT/RATING CLERK - Recommend repeat CTV today to evaluate burden of thrombus, if extending would highly consider starting anticoagulation sooner (currently deferred for 10 days post surgery) Seen and discussed with neurology attending Dr. Soto. Anjelica Molina DO Neurology PGY-3 Pager [phone] ([phone] nights and weekends) 02/22/20 12:57 NEUROLOGY INPATIENT SUPERVISORY NOTE I personally saw, examined and evaluated Ms.Loriann White on 02/22/[address] Molina and the rest of the inpatient Vascular Neurology team. I agree with Dr. Molina history,examination, assessment and plan except as modified below. Please refer to her note as above for further details. Socorro Soto DO 02/22/20 14:47 * Matteo Carlin RN - 02/22/2020 1144 EDT Acute Inpatient Rehabilitation Rehab Referral Review Patient Review: EMR reviewed. Admitted 02/13 after left frontotemporal IPH secondary to cerebral venous sinus thrombosis. Expansion of IPH on 02/15 emergent craniectomy and clot removal Referral Status and Assessment: Therapy recommending AR when medically ready Progression with mobility limited today pending helmet and orders Comments: PEG placed 02/17 Extubated 02/18 Follow-up Plan: Will continue to follow MATTEO CARLIN RN 02/22/2020 11:44 * Susana Arredondo, RD - 02/22/2020 1107 EDT Nutrition Reassessment: ?? Medical Summary: Ynes White is a 50F with tobacco use, cerebral venous thrombosis and intraparenchymal hemorrhage in left frontotemporal area. ??Initially admitted to Neurosurgery for close monitoring and heparin drip. Initial head??CT at therapeutic dose was stable, but repeat head CT 02/16 demonstrating enlarged hemorrhage with coinciding decreased right sided movement and subsequent dilation of left pupilprompting hypertonic bolus, heparin reversal, mannitol, and OR for emergent Left sided craniectomy and hematoma evacuation. Later found to have acute deep and superficial vein thrombosis in the left upper extremity, on Heparin DVT ppx dosing. Now status post PEG placement with recently improved exam, extubated and able to produce simple verbal responses. Still has profound receptive asphasia. Mildly HTN added lisinopril. ?? Subjective: Nursing notes pt. Able to eat 25% breakfast Current Nutrition Orders: Diet: Tube Feed: none Supplements: 60 Prosource 2x/day Enteral Free Water: zero, flush following meds only 3% saline @ 20 ml/h ?? Nutrition Focused Physical Findings: Cardiovascular-pulmonary: intubated Digestive Systems: Last BM: 02/21 ?? Anthropometrics: Height: 170.2 cm Admission Weight: 98.5 kg Current Body Weight: 98.4 kg 02/14, BMI 34 kg/m2 [place] Body Weight (IBW): 61 kg Adjusted weight: 80 kg Pertinent Medications: Current Facility-Administered Medications: acetaminophen (TYLENOL) tablet 1,000 mg oral Q6H Or acetaminophen (TYLENOL) solution unit dose cup 995 mg per ng tube Q6H Or acetaminophen (TYLENOL) suppository 975 mg rectal Q6H amino acids-protein hydrolysate (PRO SOURCE NOCARB) packet 60 mL feeding tube BID aspirin chewable tablet 81 mg oral DAILY bisacodyL (DULCOLAX) suppository 10 mg rectal Q48H PRN dextrose 50 % solution 12.5 g intravenous PRN docusate (COLACE) liquid 100 mg oral BID enoxaparin (LOVENOX) injection 40 mg subcutaneous DAILY glucagon injection 1 mg intramuscular PRN hydrALAzine (APRESOLINE) injection 10 mg intravenous Q1H PRN HYDROmorphone (DILAUDID) tablet 2-4 mg oral Q4H PRN HYDROmorphone (PF) (DILAUDID) 0.5 mg/0.5 mL syringe 0.2 mg intravenous Q4H PRN insulin aspart U-100 (NOVOLOG FLEXPEN) injection subcutaneous Q6H labetaloL (TRANDATE) injection 20 mg intravenous Q4H PRN lidocaine (XYLOCAINE) 2 % viscous solution lisinopriL (PRINIVIL) tablet 20 mg oral DAILY melatonin tablet 3 mg oral QHS metoprolol (LOPRESSOR) injection 5 mg intravenous Q6H Multivitamins with minerals + ferrous gluconate (CENTRUM) oral solution 15 mL feeding tube DAILY nicotine (NICODERM CQ) 7 mg/24 hr patch 1 Patch transdermal Q24H ondansetron (PF) (ZOFRAN) injection 4 mg intravenous Q4H PRN papain-alpha amylase-cellulase (CLOG ZAPPER) 2-5 mL feeding tube PRN phenylephrine-lidocaine 0.25 %-3 % (CO-PHENYLCAINE) topical solution 5 mL topical ONCE senna (SENOKOT) tablet 1 Tab oral BID sodium chloride 3 % infusion intravenous CONTINUOUS Pertinent Labs: Relevant Labs: Lab Results Component Value Date WBC 9.61 02/22/2020 RBC 3.28 (L) 02/22/2020 HGB 10.7 (L) 02/22/2020 HCT 32.3 (L) 02/22/2020 MCV 99 (H) 02/22/2020 MCH 32.6 02/22/2020 PLT 256 02/22/2020 NA 137 02/22/2020 K 3.9 02/22/2020 CL 111 (H) 02/22/2020 CO2 19 (L) 02/22/2020 BUN 21 02/22/2020 CREATININE 0.49 (L) 02/22/2020 CALCIUM 8.8 02/14/2020 MG 2.2 02/22/2020 PHOS 4.1 02/22/2020 Estimated Nutrition Needs: MSJ; 1629 MSJ x 1.2: 1955 calories per day 1.3 x adjusted weight: 104 gram protein per day ?? Assessment: Pt. Ordered for a dysphagia diet with shakes. She is able to 25% breakfast. If unable to eat adequately consider between meal bolus feeds to enable pt. To meet protein calorieneeds. Currently pt. Has pro source ordered as 60 ml bid provin calories per day, 60 gram protein perday. Consider bolus of 250 ml of Nutren 1.5 if pt. Consumes < 30% meal (based on nursing assessment) 4 times per day. 5 x 250 ml Nutren 1.5 per day provides: 1500 calories and 68 gram protein. Nutrition Risk Level: High (1) Medical Nutrition Therapy Plan and Recommendations: Diet as ordered Nutrition to monitor intake and help with meal and supplement selection as needed Team has ordered calorie count Continue pro source as ordered Suggest 250 ml bolus Nutren 1.5 (or boost plus) if pt. Consumes <30% previous meal at 10 am, 2 pm, 6 pm and 9 pm. Weigh pt. Susaan Arredondo RD [place] [id number] Dietitian Pager: [phone] * Mary Clarke, PT - 02/22/2020 5948 EDT [facility] Rehabilitation Therapy Acute Therapy [facility] [place] Physical Therapy Encounter Note Date of Service: 02/22/2020 Subjective/Objective Subjective Reporting Person Comment: It hurts! Pain Evaluation Pain Comments: Patient unable to rate pain on scale, though stating it hurts after mobility/treatment. Select Specific Pain Scale: Adult Nonverbal Adult Nonverbal Pain Scale (Scale 0-10) Face: Occasional grimace, tearing, frowning, wrinkled forehead Activity: Restless, excessive activity and/or withdrawal reflexes Guarding: Splinting areas of body, tense Physiology: Stable vital signs Respiratory (Scale 0-10): Baseline RR/SpO2, compiant with ventilator Adult Nonverbal Pain ScaleTotal: 4 Objective Time: 8162-0258 Total Treatment Time (minutes): 25 Timed Code Treatment Minutes: 25 Interventions Included: Procedures Procedures Q-Z: Therapeutic activities Therapeutic Activities Minutes: Patient presented supine in bed; attempted therex, though patient inconsistantly following commnads. Patient spontaneously moving left and right UE/LE. Supine>sit with min assist of 2 for initiation of movement and stabilization. Once sitting at EOB, patient requiring min contact assist of 2 for safety. Patient tolerated sitting at EOB x 4 minutes. Attempted standing to side-step along edge of bed, though patient unable to sequence. Sit<>stand with min assist of 1 and min contact assist of second for safety. Supine>sit with mod assist for safety; max assist of 2 to alexus up in bed. Patient independently rolling onto right side. Positioned with pillows for comfort safety. Further mobility deferred as patient does not have helmet yet and decreasedsafety due to difficulty following commands. The patient was left in the: bed Patient Status at the End of the Therapy Session Comments: 1:1 sitter present. Arousal, Attention, and Cognition: Inconsistent responses to stimuli Orientation Level: Oriented to person(RN reporting patient able to state name today.) Cardiopulmonary: BP: 138/72 Vital Signs with Activity Comment: BP decreased to 122/67 with sitting at EOB. Integumentary/Anthropometric Characteristics: Integrity: Non-Intact(left cranial incision open to air with ghassan, no new drainage noted.) - - Patient/Family Education: Education Topics Mobility, Transfers, and Gait: Bed mobility, Mobility recommendations, Transfers Recommendations: Discharge recommendations/planning, Follow-up services Safety: Fall precautions, Safety Therapy Specific: Plan of care, Treatment plan/goals, Role of physical therapy Learner Learner: Patient Method: Verbal Barriers to Learning: Cognition Outcome: Requires assist, Needs reinforcement Team Communication: Notification to, Notified: Nurse When: After therapy session, Prior to therapy session By: [id number] communication About Patient Status and Referrals: Patient status, Plan of care, Discharge needs Assessment/Plan Assessment Need for Services Patient has made progress in the areas of:: Patient with slighty improved mobility today, though remains limited due to impaired cognition. Mobility progression deferred, will need helmet for furthermobility per orders. Patient remains good candidate for acute rehab once medically ready. PT to continue to follow while admitted. Physical Therapy is medically necessary to: Address body structure/function impairments, activity limitations, and participation restriction, Establish and progress mobility/exercise and provide recommendations for staff and safe discharge planning, Facilitate return to prior level of function, Improve safety and independence Justification for Acute Rehab Justification for Acute Rehabilitation: The patient requires acute rehabilitation for multiple therapy disciplines and is expected to tolerate an intensity of 3 hours of therapy at a minimum of 5 days per week. Plan Necessity: Continue per established treatment plan Recommended Discharge Destination: Acute rehabilitation Therapy Specific Services: Physical therapy Equipment Recommended: To be determined by next provider Primary Therapist: Pager: [phone] Mary Clarke PT 02/22/2020 9:25 * Trish Ponce OT - 02/22/2020 0918 EDT [facility] Rehabilitation Therapy Acute Therapy [facility] Occupational Therapy Contact Note Date of Service: 02/22/2020 Patient not seen this am in OT , due to awaiting a helmet and fatigue after PT session . OT will follow-up in 1-2 days. TRISH PONCE OT, 02/22/2020, 9:18 * Ashleigh Patel MD - 02/22/2020 0644 EDT Neurosurgery Progress Note Problems/ Left transverse venous sinus thrombosis with intracerebral hemorrhage Midline Shift Brain compression Encephalopathy Procedures/ Left sided craniectomy and hematoma evacuation (Penar, 02/16/20) 24/ Temp: [36.8 ??C (98.2 ??F)-37.3 ??C (99.1 ??F)] () Na 137 overnight, restarted 3%, repeat 146 (thought to be erroneous) immediately repeated at 137 Subjective/ Sleeping, awakens to voice Yes. to all questions Objective/ BP 139/64 Pulse 95 Temp 36.9 ??C (98.4 ??F) (Oral) Resp 18 Ht 170.2 cm (67) Wt 98.4 kg (217 lb) SpO2 97% BMI 33.99 kg/m?? GCS 14 (E4,V4,M6) Eyes open to voice, left eye swollen Following commands with miming or repeating, squeezes hands with bilateral upper extremities, difficulty comprehending more complex commands Incision C/D/I Assessment/ 50F with tobacco use, cerebral venous thrombosis and intraparenchymal hemorrhage in left frontotemporal area. Initially admitted to Neurosurgery for close monitoring and heparin drip. Initial head CTat therapeutic dose was stable, but repeat head CT 02/16 demonstrating enlarged hemorrhage with coinciding decreased right sided movement and subsequent dilation of left pupil prompting hypertonic bolus, heparin reversal, mannitol, and OR for emergent Left sided craniectomy and hematoma evacuation. Later found to have acute deep and superficial vein thrombosis in the left upper extremity, on Heparin DVT ppx dosing. Now status post PEG placement with recently improved exam, extubated and able to produce simple verbal responses. Still has profound receptive asphasia. Mildly HTN added lisinopril. Plan/ Hourly neuro checks SBP <140 Appreciate hematology recommendation Appreciate RATING CLERK recommendations Goal Na ~140, q8h Na checks Repeat head CT if neuro decline Order helmet ASHLEIGH PATEL MD 02/22/2020 6:44 Page 6048 with questions Cosigned by Juan C Hoskins MD at 02/22/2020 17:33 EDT Associated attestation - Juan C Hoskins MD - 02/22/2020 1808 EDT Neurosurgery Staff I have seen and examined this patient. I reviewed the patient's history and exam with the Neurosurgery Resident. I agree with the findings, assessment and treatment plan as documented in the resident's note. Stable BT * Isabell Montenegro, OT - 02/21/2020 0937 EDT [facility] Rehabilitation Therapy Acute Therapy [facility] Occupational Therapy Contact Note Date of Service: 02/21/2020 OT continues to follow pt. Pt with elevated SBP this AM in 140's-160's range. Goal SBP <140. Will defer OT evaluation at this time. OT will plan to follow-up as appropriate tomorrow. Isabell Montenegro OT, 02/21/2020, 9:37 * Cecelia Rosario Zay, DO - 02/21/[address] [facility] NEUROLOGY PROGRESS NOTE PATIENT NAME: Ynes White PCP: Alejandrina Carrillo DATE OF ADMISSION: 02/14/2020 DATE OF SERVICE: 02/21/2020 CODE STATUS: Full Code PRIMARY DIAGNOSIS: Cerebral venous thrombosis with resultant left frontotemporal hemorrhage OVERNIGHT EVENTS/SUBJECTIVE: - No acute overnight events. Ynes says she is doing good this morning. She denies headache. MEDICATIONS: Current Facility-Administered Medications: acetaminophen (TYLENOL) tablet 1,000 mg oral Q6H Or acetaminophen (TYLENOL) solution unit dose cup 995 mg per ng tube Q6H Or acetaminophen (TYLENOL) suppository 975 mg rectal Q6H amino acids-protein hydrolysate (PRO SOURCE NOCARB) packet 60 mL feeding tube BID aspirin chewable tablet 81 mg oral DAILY bisacodyL (DULCOLAX) suppository 10 mg rectal Q48H PRN dextrose 50 % solution 12.5 g intravenous PRN docusate (COLACE) liquid 100 mg oral BID enoxaparin (LOVENOX) injection 40 mg subcutaneous DAILY glucagon injection 1 mg intramuscular PRN hydrALAzine (APRESOLINE) injection 10 mg intravenous Q1H PRN HYDROmorphone (DILAUDID) tablet 2-4 mg oral Q4H PRN HYDROmorphone (PF) (DILAUDID) 0.5 mg/0.5 mL syringe 0.2 mg intravenous Q4H PRN insulin aspart U-100 (NOVOLOG FLEXPEN) injection subcutaneous Q6H labetaloL (TRANDATE) injection 20 mg intravenous Q4H PRN levETIRAcetam (KEPPRA) tablet 500 mg oral Q12H Or levETIRAcetam (KEPPRA) 500 mg in sodium chloride (NS) 0.9 % 100 mL IVPB intravenous Q12H lidocaine (XYLOCAINE) 2 % viscous solution melatonin tablet 3 mg oral QHS metoprolol (LOPRESSOR) injection 5 mg intravenous Q6H Multivitamins with minerals + ferrous gluconate (CENTRUM) oral solution 15 mL feeding tube DAILY nicotine (NICODERM CQ) 7 mg/24 hr patch 1 Patch transdermal Q24H ondansetron (PF) (ZOFRAN) injection 4 mg intravenous Q4H PRN papain-alpha amylase-cellulase (CLOG ZAPPER) 2-5 mL feeding tube PRN phenylephrine-lidocaine 0.25 %-3 % (CO-PHENYLCAINE) topical solution 5 mL topical ONCE senna (SENOKOT) tablet 1 Tab oral BID REVIEW OF SYSTEMS: Pertinent positives and negatives as per HPI. General Exam: General appearance: Laying in bed, appears comfortable, no acute distress. Skin: Skin color, temperature, turgor normal. HEENT: Surgical ghassan in place over left scalp. Left eyelid minimally swollen. Lungs: No increased work of breathing Extremities: all extremities warm. Neurological Exam: Mental Status/Language: Awake and alert. Answers questions appropriately. Difficulty following somecommands. Cranial Nerves: Pupils equal and reactive to light. EOMI. Face appears symmetric except minimally swollen left eye. Hearing grossly intact to voice. Motor: Normal muscle bulk and supple tone. No abnormal spontaneous movements. Holds both arms antigravity without drift. Reflexes: 1-2+ throughout. Sensation: Deferred. Cerebellar: Not formally tested, though no dysmetria with movements. Gait: Deferred. LABORATORY: CBC: Recent Labs 02/19/2041702/20/20 0648 02/21/20 0232 WBC 7.94 9.74 9.46 RBC 3.30* 3.22* 3.28* HGB 11.0* 10.8* 10.9* HCT 32.7* 33.0* 33.2* MCV 99* 103* 101* MCH 33.3 33.5* 33.2 MCHC 33.6 32.7 32.8 PLT 150 229 235 BMP: Recent Labs 02/19/20 0418 02/20/20 0648 02/20/20 1426 02/20/20 2118 02/21/20 0232 NA 144 < > 142 140 138 138 K 3.0* < > 3.5 3.7 3.7 3.9 CL 109 < > 112* 110 109 109 CO2 29 < > 26 24 23 22 BUN 21 -- 23 -- -- 23 CREATININE 0.48* -- 0.50* -- -- 0.45* MG 2.1 -- 2.2 -- -- 2.2 PHOS 3.7 -- 4.1 -- -- 4.4 < > = values in this interval not displayed. Coags: Recent Labs 02/19/20 0418 02/20/20 0648 02/21/20 0232 PROTIME 15.0* 13.1 12.7 INR 1.3* 1.1 1.1 PTT 32 31 32 LFT: No results for input(s): TBIL, ALKPHOS, AST, ALT, LIPASE, AMYLASE in the last 72 hours. ABG: NEUROIMAGING STUDIES: Personally reviewed. CT HEAD WO CONTRAST 02/12/2020 IMPRESSION: No acute abnormality. CT HEAD WO CONTRAST 02/14/2020 IMPRESSION: 1. Acute intra-axial hemorrhage left temporal and frontal lobes the approximately 5.8 by 3.5 by 4.8cm. Associated subarachnoid hemorrhage over the left hemisphere. 2. 2 mm [id number] midline shift. CTA HEAD NECK 02/14/2020 IMPRESSION No significant abnormality of the major intracranial or cervical arterial vasculature. Please referto dedicated CT venogram for findings of venous thrombosis and slight increase in intraparenchymal hemorrhage. CT HEAD VENOGRAM W CONTRAST 02/14/2020 IMPRESSION 1. Venous thrombosis in the left internal jugular vein, sigmoid and transverse sinus as well as thevein of Kristen. 2. Intraparenchymal hemorrhage related to the venous thrombosis has increased slightly from prior. ?? 3. Unchanged midline shift. No evidence of herniation. CT HEAD WO CONTRAST 02/15/2020 IMPRESSION 1. Unchanged size and mass effect of the intraparenchymal hemorrhages compared to [address] angiogram 8 hours prior. No evidence of herniation. 2. Venous thrombosis as above. CT HEAD WO CONTRAST 02/15/2020 IMPRESSION Interval increase in size of medial component of the parenchymal hematoma in the left temporal and parietal lobes, now with overall size measuring 6.9 x 5.0 x 4.4 cm. There is worsened rightward midline shift of 9 mm compared to [address] HEAD WO CONTRAST 02/16/2020 IMPRESSION 1. Slight interval increase in the size of the parenchymal hematoma in the left temporal and parietal as well as associated vasogenic edema and mass effect. 2. Mild dilatation of the right lateral ventricle and the temporal horn of the left lateral ventricle suggesting ventricular entrapment. 3. Dural venous sinus and cortical vein thrombosis. CT HEAD WO CONTRAST 02/16/2020 IMPRESSION 1. Expected postoperative changes related to evacuation of left temporoparietal parenchymal hematoma. Small residual hemorrhages are present at the periphery of the evacuation site. 2. There is been improved left to right midline shift, currently 8 mm, previously 10 mm. 3. High density is again seen in the left transverse sinus and left vein of Kristen corresponds to known venous thrombosis. CT VENOGRAM HEAD W CONTRAST 02/17/2020 IMPRESSION 1. Dural venous sinus thrombosis within the left transverse sinus, and to a lesser extent the righttransverse sinus, left sigmoid sinus and internal jugular vein, as well as within the left vein of Kristen, not significantly changed compared to the 02/14/2020 CT venogram. 2. Postsurgical changes related to left parenchymal hematoma evacuation with increasing fluid in the soft tissues surrounding the craniectomy. 3. No new or enlarging intracranial hemorrhage with slight interval improvement of local mass effect. Left uncal herniation is unchanged. ?? OTHER DIAGNOSTIC STUDIES: N/A ASSESSMENT: Ynes White is a 50 y.o. woman with a past medical history significant for anxiety/depression and tobacco use disorder who presented with headache and found to have a left cerebral venous thrombosis and resultant intraparenchymal hemorrhage in the left frontotemporal area. Her [employer] hormone replacement therapy (estradiol-norethindrone), family history of cancer, and active tobacco use may be contributing factors to underlying hypercoagulable state. No evidence of malignancy on CT chest/abdomen/pelvis. Exam declined and is now s/p left hemicraniectomy and hematoma evacuation on 02/15. Needs to restart anticoagulation as soon as possible. RECOMMENDATIONS: - Resume therapeutic anticoagulation as soon as possible - q1h neuro checks - Hematology for hypercoagulable work up - Factor V leiden negative, cardiolipin antibody negative, protein S 150 (high) and C 55 (low), lupus anticoagulant cascade pending, and beta 2 glycoprotein negative - DVT present in left upper extremity - Echo completed; no thrombus, no evidence of R heart strain - CT chest/abdomen/pelvis showing acute pulmonary embolism - No IVC filter per hematology/ IR - Enoxaparin for DVT prophylaxis - PT/OT/RATING CLERK - Consider repeat CTV, likely next week Cecelia Rosario DO Department of Neurology, PGY3 Pager #[phone] (#[phone] on nights and weekends) 02/21/2020 9:04 Cosigned by Jose Francisco Montiel MD at 02/21/2020 21:30 EDT Associated attestation - Jose Francisco Montiel MD - 02/21/2020 2130 EDT Attestation statement: I saw and examined the patient with the resident/fellow. I agree with the findings and plan of care documented in the resident's/fellow's note. Jose Francisco Montiel M.D. 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 Objective/ BP 139/81 Pulse 95 Temp 36.8 ??C (98.2 ??F) (Oral) Resp 14 Ht 170.2 cm (67) Wt 98.4 kg (217 lb) SpO2 97% BMI 33.99 kg/m?? GCS 14 (E4,V4,M6) Eyes open to voice, left eye swollen Following commands, squeezes hands with bilateral upper extremities, difficulty comprehending more complex commands Incision C/D/I, flap full this AM Assessment/ 50F with tobacco use, cerebral venous thrombosis and intraparenchymal hemorrhage in left frontotemporal area. Admitted to Neuro for close monitoring and heparin drip. Initial head CT at therapeutic dose was stable, but repeat head CT 02/16 demonstrating enlarged hemorrhage with coinciding decreased right sided movement and subsequent dilation of left pupil prompting hypertonic bolus, heparin revers al, mannitol, and OR for emergent Left sided craniectomy and hematoma evacuation. Patient remains intubated post-op. Neuro exam unchanged. Now with acute deep and superficial vein thrombosis in the left upper extremity, on Heparin DVT ppx dosing. Now status post PEG placement with recently improved exam, extubated and able to produce simple appropriate verbal responses. Flap more full this AM, will repeat CT if any neuro decline and restart hypertonics if Na <138 on next lab check. Plan/ Hourly neuro checks SBP <140 Appreciate hematology recommendation Appreciate RATING CLERK recommendations Goal Na ~140, will restart hypertonics if next lab check <[address] if neuro decline Order helmet Trenton Marlow MD 02/21/2020 7:43 Page [id number] with questions Cosigned by Juan C Hoskins MD at 02/21/2020 10:38 EDT Associated attestation - Juan C Hoskins MD - 02/21/2020 1038 EDT Neurosurgery Staff I have seen and examined this patient. I reviewed the patient's history and exam with the Neurosurgery Resident. I agree with the findings, assessment and treatment plan as documented in the resident's note. Continues to improve BT * Katiana Hall OT - 02/20/2020 1020 EDT [facility] Rehabilitation Therapy Acute Therapy [facility] Occupational Therapy Contact Note Date of Service: 02/20/2020 OT referral received, chart reviewed. OT checked in with nursing and nursing requested deferral dueto heart rate being difficult to control and needing a new IV. OT will f/u this afternoon if time allows or see patient in 1-2 days. Katiana Hall OT, 02/20/2020, 10:20 * Michelet Paz MD - 02/20/[address] [facility] NEUROLOGY PROGRESS NOTE PATIENT NAME: Ynes White PCP: Alejandrina Carrillo DATE OF ADMISSION: 02/14/2020 DATE OF SERVICE: 02/20/2020 CODE STATUS: Full Code PRIMARY DIAGNOSIS: Cerebral venous thrombosis with resultant left frontotemporal hemorrhage OVERNIGHT EVENTS/SUBJECTIVE: - Transitioned from heparin to enoxaparin for DVT prophylaxis Ynes isn't talking much this morning, and is unable to provide a subjective. MEDICATIONS: Current Facility-Administered Medications: acetaminophen (TYLENOL) tablet 1,000 mg oral Q6H Or acetaminophen (TYLENOL) solution unit dose cup 995 mg per ng tube Q6H Or acetaminophen (TYLENOL) suppository 975 mg rectal Q6H amino acids-protein hydrolysate (PRO SOURCE NOCARB) packet 60 mL feeding tube BID aspirin chewable tablet 81 mg oral DAILY bisacodyL (DULCOLAX) suppository 10 mg rectal Q48H PRN dextrose 50 % solution 12.5 g intravenous PRN docusate (COLACE) liquid 100 mg oral BID enoxaparin (LOVENOX) injection 40 mg subcutaneous DAILY glucagon injection 1 mg intramuscular PRN hydrALAzine (APRESOLINE) injection 10 mg intravenous Q1H PRN HYDROmorphone (DILAUDID) tablet 2-4 mg oral Q4H PRN HYDROmorphone (PF) (DILAUDID) 0.5 mg/0.5 mL syringe 0.2 mg intravenous Q4H PRN insulin aspart U-100 (NOVOLOG FLEXPEN) injection subcutaneous Q6H labetaloL (TRANDATE) injection 20 mg intravenous Q4H PRN levETIRAcetam (KEPPRA) tablet 500 mg oral Q12H Or levETIRAcetam (KEPPRA) 500 mg in sodium chloride (NS) 0.9 % 100 mL IVPB intravenous Q12H lidocaine (XYLOCAINE) 2 % viscous solution melatonin tablet 3 mg oral QHS metoprolol (LOPRESSOR) injection 5 mg intravenous Q6H Multivitamins with minerals + ferrous gluconate (CENTRUM) oral solution 15 mL feeding tube DAILY nicotine (NICODERM CQ) 7 mg/24 hr patch 1 Patch transdermal Q24H ondansetron (PF) (ZOFRAN) injection 4 mg intravenous Q4H PRN papain-alpha amylase-cellulase (CLOG ZAPPER) 2-5 mL feeding tube PRN phenylephrine-lidocaine 0.25 %-3 % (CO-PHENYLCAINE) topical solution 5 mL topical ONCE senna (SENOKOT) tablet 1 Tab oral BID REVIEW OF SYSTEMS: Limited due to mental status. General Exam: General appearance: Laying in bed, appears comfortable but tired, no acute distress. Skin: Skin color, temperature, turgor normal. HEENT: Surgical ghassan in place over left scalp. Left eyelid nearly resolved. Lungs: No increased work of breathing Extremities: all extremities warm. Neurological Exam: Mental Status/Language: Awake but quite sleepy. Mumbles and has some form words but not fluent speech this morning. Cranial Nerves: Pupils equal and reactive to light. EOMI. Face appears symmetric except mildly swollen left eye. Hearing grossly intact to voice. Motor: Normal muscle bulk and supple tone. No abnormal spontaneous movements. Spontaneous movementsin bilateral arms and legs; can hold both antigravity. Reflexes: Plantar response downgoing on the left; mute on the right. Sensation: Withdraws from pain in all extremities. Cerebellar: Not assessed given altered mentation and inability to follow complex commands. Gait: Deferred. LABORATORY: CBC: Recent Labs 02/18/20 0544 02/19/208 02/20/20 0648 WBC 6.87 7.94 9.74 RBC 3.50* 3.30* 3.22* HGB 12.3 11.0* 10.8* HCT 34.9 32.7* 33.0* MCV 100* 99* 103* MCH 35.1* 33.3 33.5* MCHC 35.2 33.6 32.7 PLT 142 150 229 BMP: Recent Labs 02/18/20 0544 02/19/20 0418 02/19/20 1412 02/19/20 2125 02/20/20 0648 NA 141 < > 144 147* 143 142 K 3.6 < > 3.0* 3.7 3.8 3.5 CL 112* < > 109 112* 112* 112* CO2 25 < > 29 28 26 26 BUN 18 -- 21 -- -- 23 CREATININE 0.47* -- 0.48* -- -- 0.50* MG 2.2 -- 2.1 -- -- 2.2 PHOS 2.8 -- 3.7 -- -- 4.1 < > = values in this interval not displayed. Coags: Recent Labs 02/18/20 0544 02/19/20 0418 02/20/20 0648 PROTIME 13.2 15.0* 13.1 INR 1.1 1.3* 1.1 PTT 27 32 31 LFT: No results for input(s): TBIL, ALKPHOS, AST, ALT, LIPASE, AMYLASE in the last 72 hours. ABG: NEUROIMAGING STUDIES: Personally reviewed. CT HEAD WO CONTRAST 02/12/2020 IMPRESSION: No acute abnormality. CT HEAD WO CONTRAST 02/14/2020 IMPRESSION: 1. Acute intra-axial hemorrhage left temporal and frontal lobes the approximately 5.8 by 3.5 by 4.8cm. Associated subarachnoid hemorrhage over the left hemisphere. 2. 2 mm [id number] midline shift. CTA HEAD NECK 02/14/2020 IMPRESSION No significant abnormality of the major intracranial or cervical arterial vasculature. Please referto dedicated CT venogram for findings of venous thrombosis and slight increase in intraparenchymal hemorrhage. CT HEAD VENOGRAM W CONTRAST 02/14/2020 IMPRESSION 1. Venous thrombosis in the left internal jugular vein, sigmoid and transverse sinus as well as thevein of Kristen. 2. Intraparenchymal hemorrhage related to the venous thrombosis has increased slightly from prior. ?? 3. Unchanged midline shift. No evidence of herniation. CT HEAD WO CONTRAST 02/15/2020 IMPRESSION 1. Unchanged size and mass effect of the intraparenchymal hemorrhages compared to [address] angiogram 8 hours prior. No evidence of herniation. 2. Venous thrombosis as above. CT HEAD WO CONTRAST 02/15/2020 IMPRESSION Interval increase in size of medial component of the parenchymal hematoma in the left temporal and parietal lobes, now with overall size measuring 6.9 x 5.0 x 4.4 cm. There is worsened rightward midline shift of 9 mm compared to [address] HEAD WO CONTRAST 02/16/2020 IMPRESSION 1. Slight interval increase in the size of the parenchymal hematoma in the left temporal and parietal as well as associated vasogenic edema and mass effect. 2. Mild dilatation of the right lateral ventricle and the temporal horn of the left lateral ventricle suggesting ventricular entrapment. 3. Dural venous sinus and cortical vein thrombosis. CT HEAD WO CONTRAST 02/16/2020 IMPRESSION 1. Expected postoperative changes related to evacuation of left temporoparietal parenchymal hematoma. Small residual hemorrhages are present at the periphery of the evacuation site. 2. There is been improved left to right midline shift, currently 8 mm, previously 10 mm. 3. High density is again seen in the left transverse sinus and left vein of Kristen corresponds to known venous thrombosis. CT VENOGRAM HEAD W CONTRAST 02/17/2020 IMPRESSION 1. Dural venous sinus thrombosis within the left transverse sinus, and to a lesser extent the righttransverse sinus, left sigmoid sinus and internal jugular vein, as well as within the left vein of Kristen, not significantly changed compared to the 02/14/2020 CT venogram. 2. Postsurgical changes related to left parenchymal hematoma evacuation with increasing fluid in the soft tissues surrounding the craniectomy. 3. No new or enlarging intracranial hemorrhage with slight interval improvement of local mass effect. Left uncal herniation is unchanged. ?? OTHER DIAGNOSTIC STUDIES: N/A ASSESSMENT: Ynes White is a 50 y.o. woman with a past medical history significant for anxiety/depression and tobacco use disorder who presented with headache and found to have a left cerebral venous thrombosis and resultant intraparenchymal hemorrhage in the left frontotemporal area. Her [employer] hormone replacement therapy (estradiol-norethindrone), family history of cancer, and active tobacco use may be contributing factors to underlying hypercoagulable state. No evidence of malignancy on CT chest/abdomen/pelvis. Exam declined and is now s/p left hemicraniectomy and hematoma evacuation on 02/15. Needs to restart anticoagulation as soon as possible. RECOMMENDATIONS: - Need to resume therapeutic anticoagulation as soon as possible - q1h neuro checks - Hematology for hypercoagulable work up - Factor V leiden negative, cardiolipin antibody negative, protein S 150 (high) and C 55 (low), lupus anticoagulant cascade pending, and beta 2 glycoprotein negative - DVT present in left upper extremity - Echo completed; no thrombus, no evidence of R heart strain - CT chest/abdomen/pelvis showing acute pulmonary embolism - No IVC filter per hematology/ IR - Enoxaparin for DVT prophylaxis - PT/OT/RATING CLERK - Consider repeat CTV, likely next week Cecelia Rosario DO Department of Neurology, PGY3 Pager #[phone] (#[phone] on nights and weekends) 02/20/2020 9:05 Attestation statement: I saw and examined the patient with the resident on 02/20/2020. I agree withthe findings and plan of care documented in the resident's note. 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 I'm good, thanks. Objective/ BP 125/72 Pulse 95 Temp 36.8 ??C (98.2 ??F) (Axillary) Resp 15 Ht 170.2 cm (67) Wt 98.4 kg (217 lb) SpO2 95% BMI 33.99 kg/m?? GCS 14T (E4,V1T,M6) Intubated Eyes open to voice, left eye swollen Following commands, squeezes hands with bilateral upper extremities, difficulty comprehending more complex commands but lifts up feet when asked to wiggle toes Incision C/D/I, flap soft and sunken Assessment/ 50F with tobacco use, cerebral venous thrombosis and intraparenchymal hemorrhage in left frontotemporal area. Admitted to Neuro for close monitoring and heparin drip. Initial head CT at therapeutic dose was stable, but repeat head CT 02/16 demonstrating enlarged hemorrhage with coinciding decreased right sided movement and subsequent dilation of left pupil prompting hypertonic bolus, heparin revers al, mannitol, and OR for emergent Left sided craniectomy and hematoma evacuation. Patient remains intubated post-op. Neuro exam unchanged. Now with acute deep and superficial vein thrombosis in the left upper extremity, on Heparin DVT ppx dosing. Now status post PEG placement with recently improved exam, extubated and able to produce simple appropriate verbal responses. Plan/ Hourly neuro checks SBP <140 Transition from sub-cutaneous heparin to prophylactic LVX per heme recs Appreciate hematology recommendation Appreciate RATING CLERK recommendations Goal Na ~140 Trenton Marlow MD 02/20/2020 7:27 Page [phone] with questions Cosigned by Juan C Hoskins MD at 02/20/2020 10:17 EDT Associated attestation - Juan C Hoskins MD - 02/20/2020 1017 EDT Neurosurgery Staff I have seen and examined this patient. I reviewed the patient's history and exam with the Neurosurgery Resident. I agree with the findings, assessment and treatment plan as documented in the resident's note. I would recommend that full anticoagulation not be started until atleast 10days post craniotomy BT * Kassandra Francis, [facility]-RATING CLERK - 02/19/2020 1222 EDT Speech-Language Pathology Clinical Swallow and Cognitive-Communication Re-Evaluation RATING CLERK Diagnosis: Aphasia and Dysphagia, oropharyngeal phase Medical Diagnosis: Cerebral venous thrombosis and resultant intraparenchymal hemorrhage in the leftfrontotemporal area Date of Onset: 02/14/20 Date of Referral: 02/14/20 Date of Service: 02/15/2020 Start Time: 10:30 Total Therapy minutes: 30 min ( 15 minutes Swallow Evaluation; 15 minutes Communication evaluation) SUBJECTIVE: Thank you. Awesome, I want more please. OBJECTIVE: History: Per Dr. Marlow's assessment: 50F with tobacco use, cerebral venous thrombosis and intraparenchymal hemorrhage in left frontotemporal area. ??Admitted to Neuro for close monitoring and heparin drip. Initial head??CT at therapeutic dose was stable, but repeat head CT 3/25 demonstrating enlarged hemorrhage with coinciding decreased right sided movement and subsequent dilation of left pupil prompting hypertonic bolus, heparin reversal, mannitol, and OR for emergent Left sided craniectomyand hematoma evacuation. Patient remains intubated post-op. Neuro exam unchanged. Now with acute deep and superficial vein thrombosis in the left upper extremity, on Heparin DVT ppx dosing. Now status post PEG placement with recently improved exam, following commands in bilateral upper extremities.Will wean to extubate today per SICU. PMH: History reviewed. No pertinent past medical history. Current Diet: PEG Diet prior to admission: Suspect Regular Current Medications: Current Facility-Administered Medications Medication Dose Route Frequency Provider Last Rate Last Dose ??? acetaminophen (TYLENOL) tablet 1,000 mg 1,000 mg oral Q6H Parag Eid MD 1,000 mg at 02/19/20 0318 Or ??? acetaminophen (TYLENOL) solution unit dose cup 995 mg 995 mg per ng tube Q6H Parag Eid MD 995 mg at 02/19/20 0822 Or ??? acetaminophen (TYLENOL) suppository 975 mg 975 mg rectal Q6H Parag Eid MD ??? amino acids-protein hydrolysate (PRO SOURCE NOCARB) packet 60 mL 60 mL feeding tube BID Claus Piña MD 60 mL at 02/19/20 0826 ??? aspirin chewable tablet 81 mg 81 mg oral DAILY Jonatan Kang MD ??? bisacodyL (DULCOLAX) suppository 10 mg 10 mg rectal Q48H PRN Parag Eid MD ??? dexMEDEtomidine in 0.9 % NaCL (PRECEDEX) 400 mcg/100 mL infusion 0.2-1.4 mcg/kg/hr intravenous CONTINUOUS Paarg Eid MD Stopped at 02/19/20 0753 ??? dextrose 5 % and 0.9 % NaCl with KCl 20 mEq/L infusion intravenous CONTINUOUS Parag Eid MD 40 mL/hr at 02/19/20 1200 ??? dextrose 50 % solution 12.5 g 25 mL intravenous PRN Joyce Lee MD ??? docusate (COLACE) liquid 100 mg 100 mg oral BID Shawn Mccollum MD 100 mg at 02/19/20 0822 ??? glucagon injection 1 mg 1 mg intramuscular PRN Joyce Lee MD ??? heparin injection 5,000 Units 5,000 Units subcutaneous Q8H Shawn Mccollum MD 5,000 Units at 02/19/20 0752 ??? hydrALAzine (APRESOLINE) injection 10 mg 10 mg intravenous Q1H PRN Parag Eid MD 10 mg at 02/19/20 0209 ??? HYDROmorphone (DILAUDID) tablet 2-4 mg 2-4 mg oral Q4H PRN Parag Eid MD ??? HYDROmorphone (PF) (DILAUDID) 0.5 mg/0.5 mL syringe 0.2 mg 0.2 mg intravenous Q4H PRN Parag Eid MD 0.2 mg at 02/19/20 0556 ??? insulin aspart U-100 (NOVOLOG FLEXPEN) injection subcutaneous Q6H Joyce Lee MD Stopped at 02/16/20 0057 ??? iohexoL (OMNIPAQUE 350) solution 100 mL 100 mL intravenous Once in imaging Earl Yoon MD ??? labetaloL (TRANDATE) injection 20 mg 20 mg intravenous Q4H PRN Parag Eid MD ??? levETIRAcetam (KEPPRA) tablet 500 mg 500 mg oral Q12H Parag Eid MD 500 mg at 02/18/20 0811 Or ??? levETIRAcetam (KEPPRA) 500 mg in sodium chloride (NS) 0.9 % 100 mL IVPB 500 mg intravenous Q12Parag Adams MD 500 mg at 02/19/20 0846 ??? lidocaine (XYLOCAINE) 2 % viscous solution ??? melatonin tablet 3 mg 3 mg oral QHS Parag Eid MD ??? metoprolol (LOPRESSOR) injection 5 mg 5 mg intravenous Q6H Parag Eid MD 5 mg at 02/19/20 1117 ??? midazolam (PF) (VERSED) 1 mg/mL injection ??? Multivitamins with minerals + ferrous gluconate (CENTRUM) oral solution 15 mL 15 mL feeding tube DAILY Parag Eid MD 15 mL at 02/19/20 0822 ??? nicotine (NICODERM CQ) 7 mg/24 hr patch 1 Patch 1 Patch transdermal Q24H Rohithvanessa Cecelia Zay, DO Stopped at 02/19/20 0823 ??? ondansetron (PF) (ZOFRAN) injection 4 mg 4 mg intravenous Q4H PRN Parag Eid MD ??? papain-alpha amylase-cellulase (CLOG ZAPPER) 2-5 mL 2-5 mL feeding tube PRN Jonatan Kang MD ??? phenylephrine-lidocaine 0.25 %-3 % (CO-PHENYLCAINE) topical solution 5 mL 5 mL topical ONCE Parag Eid MD ??? prochlorperazine edisylate (COMPAZINE) injection 10 mg 10 mg intravenous Q6H PRN Joyce Lee MD 10 mg at 02/15/20 2208 ??? senna (SENOKOT) tablet 1 Tab 1 Tab oral BID Parag Eid MD 1 Tab at 02/19/20 0822 ??? sodium acetate 513 mEq/L intravenous CONTINUOUS Parag Eid MD 20 mL/hr at 02/19/20 1200 Current Status: Cognitive Status: Patient was alert and cooperative during evaluation. Aphasia present Respiratory Status: Respiratory status was judged to be WFL to support oral feeding. Clinical Swallow Re-Evaluation: Patient/Family: consented to completing the clinical bedside swallow exam. Oral Peripheral Motor Exam: Face: Right sided facial droop. Lips: Reduced strength and range of motion. Tongue: Unable to protrude Velum: Unable to view during the evaluation. Dentition: Adequate dentition. Laryngeal Excursion: Within functional limits with anterior tipping upon palpation. Speech Intelligibility: Reduced precision Vocal Quality: Patient presents with a hoarse vocal quality. Cough: Baseline throat clear present Positioning: Seen at bedside for evaluation. Consistencies Tested: was assessed with thin liquids and puree foods. Methods of Delivery: All items were administered by RATING CLERK using a spoon, cup and straw. Oral Phase Findings: Patient presents with oral phase deficits characterized by : ?? Reduced coordination ?? Right anterior bolus loss Pharyngeal Phase: Patient presents with pharyngeal phase dysphagia signs/deficits as suggested by :Slight delay with audible swallows Cough x1 with thin via cup sip Esophageal Phase: No signs indicated Compensatory Strategies: [place] thick liquids Water -Thin via TSP Current Evaluation: Informal measures were utilized to evaluate current speech-language/cognitive-linguistic function. Behavior: During evaluation today, patient presented as sleepy and disengaged. ?? Speech-Language Function: Auditory Comprehension: Commands: simple one step given max verbal and physical cues 1/3 Personal questions 0/4 -Inaccurate even at the personal name level Improved ability to follow simple one step commands and simple y/n questions in context and given visual cues. Liam-Motor Evaluation/Motor Speech: Minimal speech output heard at this time. Voice: Initially aphonic, improved after drinking water. Rough vocal quality The Grade, Roughness, Breathiness, Aesthenia, Strain, Instability (GRBASI) scale was used to assessvocal quality. The GRBASI is a formalized, perceptual scale of voice assessment developed as a minimum analysis of voice quality. Ratings are on a scale of 0-3 (0, normal; 1, slight; 2, moderate; 3, severe) along six parameters. Grade (overall severity of dysphonia): 2 Roughness (psycho-acoustic impression of irregularity of vocal fold vibration): 2 Breathiness (psycho-acoustic impression of the extent of air leakage through the glottis): 1 Asthenia (weakness or lack of power in the voice): 2 Strain (psycho-acoustic impression of hyperfunction during phonation): Instability (changes in vocal quality over time): 3 Source(s): Yamauchi et al. (2010); Hirano (1981) Verbal Expression: Confrontation Naming: .5/3 - (She was able to say sauce for applesauce) ?? Repetition: 0/2 (name and counting) ?? Spontaneous utterances: I want more please. Awesome, thank you so much Really I'm fine Reading Comprehension: Not formally evaluated. Written Expression: Not formally evaluated. Augmentative/Alternative Communication: ?? Initiation of arm movement for AAC is a barrier. ?? Stimulability for a communication board: ?? Unable to point to objects in a field of two ?? Unable to point to a yes/no board in a field of two Cognitive-Linguistic: Unable to formally evaluate secondary to language deficits. Patient/Family Education/Training: Patient/Family education and training was completed today including the role of Speech-Language Pathology, results of today's exam/recommendations and communicationstrategies. Learner: patient Method of Education: Verbal Barriers to Learning/Education: language Patient: needs further instruction and education Family: was not present Assessment /Clinical Impressions: is a 50 y.o. female status post IPH in left frontotemporal area, who had increased hemorrhage on 02/16, for which she went to the OR for emergent left sided craniectomy and hematoma evacuation. She was extubated early this morning. Team requested a swallow evaluation post extubation to assess risk of laryngeal penetration/aspiration. currently presents with a moderate oropharyngeal dysphagia as characterized by anteriorbolus loss and reduced oral coordination; and mildly delayed initiation of the swallow with audibleswallows, but adequate height of excursion in the pharyngeal phase. Pt has a baseline throat clear s/p extubation that impacted sensitivity of the throat clear/cough as a sign of aspiration today. Etiology of dysphagia is patient's left IPH. remains at moderate risk of aspiration at this time. Compensatory strategies of thickened liquid (nectar) and Dys2 textures appear effective in decreasing risk of aspiration. Prognosis for improvement in swallow function is judged to be good at this time secondary to anticipated neurologic recovery. A cognitive communication evaluation was completed. Patient demonstrates severe comprehension and expressive communication impairments, with expression abilities better than her comprehension abilities at this time. With comprehension, she is able to inconsistently follow simple directions in contex t, using visual cues. With expression, she is inconsistently able to verbalize simple spontaneous utterances in context. She will benefit from her needs being anticipated and simplified information presented to her. Information should be repeated and said in different ways, and augmented with pictures and gestures. Of note she presented with a moderately rough vocal quality s/p extubation. Functional Communication Measures ([place] [employer], 2002). The Functional Communication Measures (FCM???s) are a series of 7 point rating scales, ranging fromleast functional (Level 1) to most functional (Level 7). They have been developed by [employer] to describe different aspects of patient???s functional communication and swallowing abilities over the course of RATING CLERK intervention. Spoken Language Comprehension Level: 2 Level 2 - With consistent, maximal cues, the individual is able to follow simple directions, respond to simple yes/no questions in context, and respond to simple words or phrases related to personal needs. Spoken Language Expression Level: 3 Level 3 - The communication partner must assume responsibility for structuring the communication exchange, and with consistent and moderate cueing, the individual can produce words and phrases that are appropriate and meaningful in context. Swallowing Level: 4 Level 4 - Swallowing is safe, but usually requires moderate cues to use compensatory strategies, and/or the individual has moderate diet restrictions and/or still requires tube feeding and/or oral supplements. GOALS: Dysphagia Goals: STG1: The patient will tolerate trials of thin liquids via cup without clinical signs of aspiration, to indicate readiness for an upgrade to Thin liquids. STG2: The patient will trials of Dys2/3 diet without clinical signs of aspiration, to indicate readiness for an upgrade Communication Goals: STG1: The patient will follow one step directions with 80% accuracy. STG2: The patient will answer personal y/n questions with 80% accuracy Plan /Recommendations: Patient will continue to benefit for further RATING CLERK intervention in this setting to address dysphagia management and intervention needs. As a result of the dysphagia evaluation, the following recommendations are provided to maximize swallow function and to minimize risk of dysphagia and its ramifications: DIET: Impeccable oral care is essential in maintaining oral hygiene and minimizing harmful bacteria. Please upgrade diet to Dys2 texture with Thin liquids. Please allow teaspoons of water between meals when patient's mouth is clean and clear of food residue. MEDICATIONS: Medication should be administered crushed with applesauce. FEEDING/EATING STRATEGIES: Patient needs assist with meals and self feeding. Communication Access and Shared Decision Making Recommendations Please support communication access and shared decision making ability by doing the following: Support Comprehension: ?? Have a pen and paper ready when communicating. ?? Please present information slowly and simplify. Augment with drawings, diagrams, gestures and pointing. ?? Ask one question at a time. ?? Have only one person speak at a time. Environmental modifications: ??? Simplify the environment: Carryover/Discharge and Healthcare Decision making considerations ??? Will need family support for the successful carryover of discharge recommendations. ?? Currently comprehension of non-contextual information is a barrier RATING CLERK follow-up: RATING CLERK to continue to follow Discharge Plan: Acute Multidisciplinary Rehabilitation Program. Kassandra Francis [facility]-RATING CLERK 02/19/2020 12:42 Fridays: Pager #[phone] RATING CLERK Acute Care Pgr #[phone] * Liliana Santiago, - 02/19/2020 1210 EDT Images from the original note were not included. Respiratory Consult/Progress Note Indications for Respiratory therapy: post extubation evaluation Data Vitals: Heart Rate: 88 BPM, Resp: 25, SpO2: 99 % FIO2/O2 Device: O2 Device: None, FIO2 %: 21 % RT Orders: Q4 respiratory evaluation Protocol Scoring: Bronchodilator/Inhalation Therapy Frequency Bronchodialator - Clinical Indications: No clinical indications Breath Sounds: Any abnormal BS decreased Response: No change / no treatment Pulse: <100 Resp Rate: 18-25 SOB: None Total Score: 2 Comment:: not indicated Airway Clearance Therapy Frequency Airway Clearance - Clinical Indications: No clinical indications Breath Sounds: Clear / diminished Sputum: Small (tsp) / None Consistency: None Cough Effort: Strong/ non-productive Color: None Total Score: 0 Comment: not indicated Hyperinflation Therapy Frequency Hyperinflation - Clinical Indications: Prevent atelectasis Breath Sounds: Other Surgery: No X-Ray / Atelectasis: No O2 Requirements: O2 at baseline Mobility Status: In chair Total: 3 Comment: prn Action/Events Patient does not have respiratory medications at home. She does not use home oxygen and is saturating 98% on room air. She does not use a home CPAP or BIPAP. She is not indicated for additional respiratory interventions at this time. Will change her to a q12 eval at this time. Response/Results Change to a q 12 eval RT DEVIN 02/19/20 * Matteo Carlin RN - 02/19/2020 1154 EDT Acute Inpatient Rehabilitation Rehab Referral Review Patient Review: EMR reviewed. Admitted 02/13 after left frontotemporal IPH secondary to cerebral venous sinus thrombosis. Expansion of IPH on 02/15 emergent craniectomy and clot removal Referral Status and Assessment: Therapy recommending AR when medically ready Comments: PEG placed 02/17 Extubated 02/18 Anticoagulation plan to be determined Follow-up Plan: Will continue to follow MATTEO CARLIN RN 02/19/2020 11:54 * Matteo Carlin RN - 02/19/2020 1151 EDT Referral received. Assessment to follow. * Evelyn Galindo, PT - 02/19/2020 1047 EDT [facility] Rehabilitation Therapy Acute Therapies [facility] Physical Therapy Encounter Note Date of Service: 02/19/2020 Subjective/Objective Subjective Patient at times with clear speech other times in appropriate words, word salad Objective Intervention completed today: Time: 9:30 Total treatment time: 25 minutes. Timed code treatment minutes: 25 Therapeutic activity: Patient in bed extubated 98% on room air, HR 80. BP 135/77 Patient inconsistently following commands, patient is impulsive Patient with weakness on right UE and LE grossly 2+/5 Supine to sit to patients right minimal contact assist of two Sitting balance minimal contact assist, as patient is impulsive Sit to stand minimal contact assist of two Patient able to stand for 2 minutes, unable to side step, patient not rolling commands, impulsive Patient/Family Education: Topic: Balance Bed mobility Discharge planning Gait Role of therapy Safety Transfers Learner: patient Method: verbal Barriers to Learning: cognitive deficits Outcome: needs practice Team Communication: RN present for treatment Assessment/Plan Assessment Patient seen today for treatment. Patient is impulsive, with decreased safety awareness. Very pleasant however not consistently following commands. Her main barrier is cognition and right side weakness. Would recommend acute rehab. Based on performance with therapy today, this patient is expected to be able to tolerate 3 hours of multi-disciplinary acute rehab therapy 5 days a week. Plan Continue per plan of care Recommended Discharge Destination: Acute rehabilitation Recommended Discharge Services: Physical therapy at rehabilitation facility Recommended Equipment Needs: To be determined by next care provider Other recommendations: No other consults recommended at this time Pager: [phone] Evelyn Galindo, PT 02/19/2020 10:48 * Parag Eid MD - 02/19/2020 0839 EDT ICU Progress Note Admit Date: 02/14/2020 LOS: 5 days CC: Cerebral venous thrombosis Subjective: HPI: Ynes White is a 50 y.o. female w PMH significant for cigarette smoking who presented 02/13 after left frontotemporal IPH secondary to cerebral venous sinus thrombosis (left IJ, sigmoid, transverse sinuses). Monitored x 2 days with stable neuro exam (global aphasia, symmetric strength) andstarted on heparin drip. However significant expansion of IPH 02/15 with concurrent decline in exam to GCS8, right sided weakness and progressively dilated L pupil, prompting 3%, mannitol, and emergent craniectomy with clot removal. SICU team consulted for airway and ICP management preoperatively. 24 Hour events: Propofol transitioned to precedex secondary to elevated triglycerides and tachycardia (HR 70s to 80s overnight) Metoprolol 5 q 6 added for tachycardia (no doses given, parameters not met) Cardiolipin M positive Passed SBT 02/18 PEG placed Hydralazine x 2 overnight for HTN Na 144(141) Na acetate lowered 40 to 20 K 3.0(3.5) sp repletion; further repletion ongoing Exam improvement, intermittently nodding/shaking appropriately and following commands on L Passed SBT this AM, extubated to NC, verbalizing minimally but appropriately Drain removed Precedex weaned off History reviewed. No pertinent past medical history. History reviewed. No pertinent surgical history. Allergies Allergen Reactions ??? Citalopram Other reaction(s): increased anxiety ??? Duloxetine Other reaction(s): increased anxiety ??? Pregabalin Other reaction(s): dizziness ??? Zolpidem Other reaction(s): sleep walking with over 5 mg Family History Problem Relation Age of Onset ??? Cancer Mother 72 Liver ??? Cancer Father 79 mesothelioma ??? Cancer Maternal Grandmother 80 Social History Tobacco Use ??? Smoking status: Current Every Day Smoker Packs/day: 0.25 Years: 15.00 Pack years: 3.75 ??? Smokeless tobacco: Never Used Substance Use Topics ??? Alcohol use: Yes ??? Drug use: Not on file Medications: acetaminophen 1,000 mg oral Q6H Or acetaminophen 995 mg per ng tube Q6H Or acetaminophen 975 mg rectal Q6H amino acids-protein hydrolysate 60 mL feeding tube BID docusate 100 mg oral BID heparin 5,000 Units subcutaneous Q8H insulin aspart U-100 subcutaneous Q6H iohexoL 100 mL intravenous Once in imaging levETIRAcetam 500 mg oral Q12H Or levETIRAcetam 500 mg intravenous Q12H lidocaine melatonin 3 mg oral QHS metoprolol 5 mg intravenous Q6H midazolam (PF) Multivitamins with minerals + ferrous gluconate 15 mL feeding tube DAILY nicotine 1 Patch transdermal Q24H phenylephrine-lidocaine 0.25 %-3 % 5 mL topical ONCE potassium chloride 40 mEq oral Now senna 1 Tab oral BID Objective: Vital Signs: BP 134/68 Pulse 95 Temp 37 ??C (98.6 ??F) Resp 17 Ht 170.2 cm (67) Wt 98.4 kg (217 lb) SpO2 99% BMI 33.99 kg/m?? BP: (95-154)/(62-94) () Pulse: -- () Temp: [36.6 ??C (97.9 ??F)-37.3 ??C (99.1 ??F)] () Resp:[10-23] () SpO2: [92 %-100 %] () Admission weight: Weight : 98.5 kg (217 lb 2.5 oz) Most recent weight: Weight : 98.4 kg (217 lb) I/O: Current Shift: 02/18 0700 - 02/18 1459 In: 75.9 [I.V.:75.9] Out: 125 [Urine:125] 24 hrs: 02/17 0700 - 02/18 0659 In: 1867.5 [I.V.:1507.5] Out: 2147 [Urine:1572; Drains:85] Tubes/Lines/Infusions: Reyes PIV Precedex Physical Exam: Gen: NAD, vigorous spontaneous movements, on precedex .7. Shakes head no pain. Resp: CTA BL CV: tachycardic, regular rhythm Abd: soft, nondistended : Reyes in place, clear yellow urine Ext: Minimal edema Neuro: Flap soft and compressible. Left periorbital edema, eye swollen closed PERRL Eyes open spontaneously Localizing and purposeful with BUE; intermittently following commands Intermittently nodding and shaking appropriately Able to speak in brief sentences appropriately; perseverative Moving Bilateral Lower extremities spontaneously L>R [id number] GCS14 Labs: CBC: Recent Labs 02/17/20 0502/18/20 0544 02/19/20 0418 WBC 7.76 6.87 7.94 RBC 3.52* 3.50* 3.30* HGB 11.9 12.3 11.0* HCT 35.5 34.9 32.7* MCV 101* 100* 99* MCH 33.8* 35.1* 33.3 MCHC 33.5 35.2 33.6 PLT 142 142 150 BMP: Recent Labs 02/16/20 1140 02/17/20 0519 02/18/20 0544 02/18/20 1213 02/18/204 02/19/208 NA 136 < > 139 < > 141 141 143 144 K 3.5 < > 3.5 < > 3.6 3.7 3.5 3.0* CL -- < > 113* < > 112* 112* 110 109 CO2 -- < > 22 < > 25 28 31 29 BUN -- -- 9* -- 18 -- -- 21 CREATININE -- -- 0.55 -- 0.47* -- -- 0.48* CAION 1.13 -- -- -- -- -- -- -- MG -- -- 1.6* -- 2.2 -- -- 2.1 PHOS -- -- 2.7 -- 2.8 -- -- 3.7 < > = values in this interval not displayed. ABG: Recent Labs 02/16/20 1140 02/16/20 1635 PHISTAT 7.40 7.44 PCOISTAT 41 34* POISTAT 151* 137* POCTCO2 27 24 Coags: Recent Labs 02/17/20 0502/18/20 0544 02/19/208 PROTIME 13.9* 13.2 15.0* INR 1.2* 1.1 1.3* PTT 26 27 32 Imaging: DVT US UE 02/16/20 ??? Positive for acute deep and superficial vein thrombosis in the left upper extremity. ??? Positive for acute superficial vein thrombosis in the right upper extremity. Negative for deep vein thrombosis in the right upper extremity. DVT US LE 02/16/2020 ??? No evidence of deep or superficial venous thrombosis in the left lower extremity. ??? Acute superficial vein thrombosis noted in the right lower extremity; no evidence of deep venous thrombosis on the right. CT head post operatively 02/16/2020 1. Expected postoperative changes related to evacuation of left temporoparietal parenchymal hematoma. Small residual hemorrhages are present at the periphery of the evacuation site. 2. There is been improved left to right midline shift, currently 8 mm, previously 10 mm. 3. High density is again seen in the left transverse sinus and left vein of Kristen corresponds to known venous thrombosis. ?? CTV (02/17/20) 1. Dural venous sinus thrombosis within the left transverse sinus, and to a lesser extent the righttransverse sinus, left sigmoid sinus and internal jugular vein, as well as within the left vein of Kristen, not significantly changed compared to the 02/14/2020 CT venogram. 2. Postsurgical changes related to left parenchymal hematoma evacuation with increasing fluid in the soft tissues surrounding the craniectomy. 3. No new or enlarging intracranial hemorrhage with slight interval improvement of local mass effect. Left uncal herniation is unchanged. Assessment: Patient: 50 y.o. female w PMH significant for cigarette smoking who presented 02/13 after left frontotemporal IPH secondary to cerebral venous sinus thrombosis. Monitored x 2 days with stable neuro exam (global aphasia, symmetric strength) and started on heparin drip. However significant expansion of IPH 02/15 with concurrent decline in neuro exam prompting emergent craniectomy with clot removal. SICU team consulted for airway and ICP management. PEG 02/17/19. Extubated 02/18. Will anticoagulate when safe from neurosurgical perspective. Principal Problem: Cerebral venous thrombosis Active Problems: Cerebral venous sinus thrombosis Brain herniation (HCC-CMS) Cerebral edema (HCC-CMS) Plan: Neuro: Dilaudid and tylenol for pain. Q1h neuro checks. Neurosurgery, Neurology, Neuro IR following. Ophthalmology signed off. Thrombectomy to be offered if infarct/hemorrhage progresses, would require full anticoagulation Improving neuro exam, now extubated and GCS13. Precedex weaned off. CV: Cardiac monitoring. Telemetry. SBP goal <140. Nicardipine gtt off, requiring PRN hydralazineand labetalol. Metop q6 Pulm: Passed SBT 02/16 02/17 and 02/18, remained intubated for PEG 02/17 and borderline GCS, extubated 02/18 to MI. GI/FEN: NPO pending RATING CLERK eval. Tube feeds to be resumed at 2PM, nutrition consulted. Goal Na normonatremia. Q8 lytes, 20mL/hr 3% sodium acetate infusion given Na this AM 144. 40mL/hr NS/KCl. Replete lytes prn. Renal: Cr stable. UOP WNL. Trending BUN/Cr, watch UOP. Heme: Hct stable. Will monitor daily CBC. SQH q8h started. Hematology following for hypercoagulability workup given central venous thrombosis, PE, LUE DVT. ECHO no heart strain. CT CAP no malignancy.Currently no indication for IVC filter, contraindicated per neuro IR. Central line deferred. ID: WBC stable. Trend WBC and fever curve. Periop antibiotics. Endo: POCT FSBG. Musculoskeletal: HOB elevated Ppx: SCDs, protonix IV discontinued, SQH 5000 q8h, heparin drip to restart pending NS recommendations Daily ICU Checklist Prophylaxis: DVT Prophylaxis: SCDs;Heparin, Unfractionated GI Prophylaxis: Yes Skin Integrity Risk Factors: Yes Pressure Ulcer / Breakdown Present?: No CAM-ICU: Unable to assess Ventilation/Sedation: Weaning Assessment: Pass Goal RASS: 0 Daily Awakening Performed: Not indicated Is there anticipated need of a chest x-ray the next morning of ICU stay?: No Procalcitonin: Currently Following Procalcitonin: No Early Mobility: Activity Order: Activy as tolerated Does The Patient Meet Physiological Criteria For PT Referral: Yes Is The Patient Awake And Able To Participate In Therapy: PT already involved Fluids/Nutrition: Daily Fluid Goal: Even Tube Feedings: Yes Last Bowel Movement: 02/16/20 Lines: Vascular Access Assessment: Peripheral access adequate Urinary (Reyes) Catheter Assessment: Reyes catheter indicated Communication: Updates: Family updated today Interdisciplinary Items: Patient Eligible For Transfer: No Daily Goals: RATING CLERK, anticoagulation, monitor for neuro changes PARAG EID MD 02/19/2020 08:39 SICU pager #[phone] Cosigned by Priyank Escobar MD at 02/19/2020 18:34 EDT Associated attestation - Priyank Escobar MD - 02/19/2020 1834 EDT Attending Note I examined and discussed this pt with the residents on 02/19/20 and agree with the above note Total time spent: 31 min Critical Care Dx: Fluid electrolyte abn, AMS Tolerating extubation, MS improved, RATING CLERK eval today, start ASA per Heme, no full anticoag yet per NS, de escalate Na target, adjust IVF and correct K Priyank Escobar MD [id number] * Michelet Paz MD - 02/19/[address] [facility] NEUROLOGY PROGRESS NOTE PATIENT NAME: Ynes White PCP: Alejandrina Carrillo DATE OF ADMISSION: 02/14/2020 DATE OF SERVICE: 02/19/2020 CODE STATUS: Full Code PRIMARY DIAGNOSIS: Cerebral venous thrombosis with resultant left frontotemporal hemorrhage OVERNIGHT EVENTS/SUBJECTIVE: - Extubated this morning - PEG placed yesterday Ynes is asking for a comforter this morning. Says no when asked if she's cold. MEDICATIONS: Current Facility-Administered Medications: acetaminophen (TYLENOL) tablet 1,000 mg oral Q6H Or acetaminophen (TYLENOL) solution unit dose cup 995 mg per ng tube Q6H Or acetaminophen (TYLENOL) suppository 975 mg rectal Q6H amino acids-protein hydrolysate (PRO SOURCE NOCARB) packet 60 mL feeding tube BID bisacodyL (DULCOLAX) suppository 10 mg rectal Q48H PRN dexMEDEtomidine in 0.9 % NaCL (PRECEDEX) 400 mcg/100 mL infusion intravenous CONTINUOUS dextrose 50 % solution 12.5 g intravenous PRN docusate (COLACE) liquid 100 mg oral BID glucagon injection 1 mg intramuscular PRN heparin injection 5,000 Units subcutaneous Q8H hydrALAzine (APRESOLINE) injection 10 mg intravenous Q1H PRN HYDROmorphone (DILAUDID) tablet 2-4 mg oral Q4H PRN HYDROmorphone (PF) (DILAUDID) 0.5 mg/0.5 mL syringe 0.2 mg intravenous Q4H PRN insulin aspart U-100 (NOVOLOG FLEXPEN) injection subcutaneous Q6H iohexoL (OMNIPAQUE 350) solution 100 mL intravenous Once in imaging labetaloL (TRANDATE) injection 20 mg intravenous Q4H PRN levETIRAcetam (KEPPRA) tablet 500 mg oral Q12H Or levETIRAcetam (KEPPRA) 500 mg in sodium chloride (NS) 0.9 % 100 mL IVPB intravenous Q12H lidocaine (XYLOCAINE) 2 % viscous solution melatonin tablet 3 mg oral QHS metoprolol (LOPRESSOR) injection 5 mg intravenous Q6H midazolam (PF) (VERSED) 1 mg/mL injection Multivitamins with minerals + ferrous gluconate (CENTRUM) oral solution 15 mL feeding tube DAILY nicotine (NICODERM CQ) 7 mg/24 hr patch 1 Patch transdermal Q24H ondansetron (PF) (ZOFRAN) injection 4 mg intravenous Q4H PRN papain-alpha amylase-cellulase (CLOG ZAPPER) 2-5 mL feeding tube PRN phenylephrine-lidocaine 0.25 %-3 % (CO-PHENYLCAINE) topical solution 5 mL topical ONCE potassium chloride (KLOR-CON) packet 40 mEq oral Now prochlorperazine edisylate (COMPAZINE) injection 10 mg intravenous Q6H PRN senna (SENOKOT) tablet 1 Tab oral BID sodium acetate 513 mEq/L intravenous CONTINUOUS REVIEW OF SYSTEMS: Limited due to mental status. General Exam: General appearance: Laying in bed, appears comfortable, no acute distress. Skin: Skin color, temperature, turgor normal. HEENT: Surgical ghassan in place over left scalp. Left eyelid swelling improving. Lungs: No increased work of breathing Extremities: all extremities warm. Neurological Exam: Mental Status/Language: Awake and alert. Is talking, though is unable to answer yes/no questions correctly. Does not follow commands. Cranial Nerves: Pupils equal and reactive to light. EOMI. Face appears symmetric except swollen left eye. Hearing grossly intact to voice. No dysarthria. Motor: Normal muscle bulk and supple tone. No abnormal spontaneous movements. Spontaneous movementsin bilateral arms and legs; can hold both antigravity. Reflexes: Plantar response downgoing on the left; mute on the right. Sensation: Withdraws from pain in all extremities. Cerebellar: Not assessed given altered mentation and inability to follow complex commands. Gait: Deferred. LABORATORY: CBC: Recent Labs 02/17/2051802/18/2054302/19/20417 WBC 7.76 6.87 7.94 RBC 3.52* 3.50* 3.30* HGB 11.9 12.3 11.0* HCT 35.5 34.9 32.7* MCV 101* 100* 99* MCH 33.8* 35.1* 33.3 MCHC 33.5 35.2 33.6 PLT 142 142 150 BMP: Recent Labs 02/16/20 1140 02/17/2051802/18/2054302/18/20 1213 02/18/20203302/19/20417 NA 136 < > 139 < > 141 141 143 144 K 3.5 < > 3.5 < > 3.6 3.7 3.5 3.0* CL -- < > 113* < > 112* 112* 110 109 CO2 -- < > 22 < > 25 28 31 29 BUN -- -- 9* -- 18 -- -- 21 CREATININE -- -- 0.55 -- 0.47* -- -- 0.48* CAION 1.13 -- -- -- -- -- -- -- MG -- -- 1.6* -- 2.2 -- -- 2.1 PHOS -- -- 2.7 -- 2.8 -- -- 3.7 < > = values in this interval not displayed. Coags: Recent Labs 02/17/2051802/18/2054302/19/20417 PROTIME 13.9* 13.2 15.0* INR 1.2* 1.1 1.3* PTT 26 27 32 LFT: No results for input(s): TBIL, ALKPHOS, AST, ALT, LIPASE, AMYLASE in the last 72 hours. ABG: NEUROIMAGING STUDIES: Personally reviewed. CT HEAD WO CONTRAST 02/12/2020 IMPRESSION: No acute abnormality. CT HEAD WO CONTRAST 02/14/2020 IMPRESSION: 1. Acute intra-axial hemorrhage left temporal and frontal lobes the approximately 5.8 by 3.5 by 4.8cm. Associated subarachnoid hemorrhage over the left hemisphere. 2. 2 mm [id number] midline shift. CTA HEAD NECK 02/14/2020 IMPRESSION No significant abnormality of the major intracranial or cervical arterial vasculature. Please referto dedicated CT venogram for findings of venous thrombosis and slight increase in intraparenchymal hemorrhage. CT HEAD VENOGRAM W CONTRAST 02/14/2020 IMPRESSION 1. Venous thrombosis in the left internal jugular vein, sigmoid and transverse sinus as well as thevein of Kristen. 2. Intraparenchymal hemorrhage related to the venous thrombosis has increased slightly from prior. ?? 3. Unchanged midline shift. No evidence of herniation. CT HEAD WO CONTRAST 02/15/2020 IMPRESSION 1. Unchanged size and mass effect of the intraparenchymal hemorrhages compared to [address] angiogram 8 hours prior. No evidence of herniation. 2. Venous thrombosis as above. CT HEAD WO CONTRAST 02/15/2020 IMPRESSION Interval increase in size of medial component of the parenchymal hematoma in the left temporal and parietal lobes, now with overall size measuring 6.9 x 5.0 x 4.4 cm. There is worsened rightward midline shift of 9 mm compared to [address] HEAD WO CONTRAST 02/16/2020 IMPRESSION 1. Slight interval increase in the size of the parenchymal hematoma in the left temporal and parietal as well as associated vasogenic edema and mass effect. 2. Mild dilatation of the right lateral ventricle and the temporal horn of the left lateral ventricle suggesting ventricular entrapment. 3. Dural venous sinus and cortical vein thrombosis. CT HEAD WO CONTRAST 02/16/2020 IMPRESSION 1. Expected postoperative changes related to evacuation of left temporoparietal parenchymal hematoma. Small residual hemorrhages are present at the periphery of the evacuation site. 2. There is been improved left to right midline shift, currently 8 mm, previously 10 mm. 3. High density is again seen in the left transverse sinus and left vein of Kristen corresponds to known venous thrombosis. CT VENOGRAM HEAD W CONTRAST 02/17/2020 IMPRESSION 1. Dural venous sinus thrombosis within the left transverse sinus, and to a lesser extent the righttransverse sinus, left sigmoid sinus and internal jugular vein, as well as within the left vein of Kristen, not significantly changed compared to the 02/14/2020 CT venogram. 2. Postsurgical changes related to left parenchymal hematoma evacuation with increasing fluid in the soft tissues surrounding the craniectomy. 3. No new or enlarging intracranial hemorrhage with slight interval improvement of local mass effect. Left uncal herniation is unchanged. ?? OTHER DIAGNOSTIC STUDIES: N/A ASSESSMENT: Ynes White is a 50 y.o. woman with a past medical history significant for anxiety/depression and tobacco use disorder who presented with headache and found to have a left cerebral venous thrombosis and resultant intraparenchymal hemorrhage in the left frontotemporal area. Her [employer] hormone replacement therapy (estradiol-norethindrone), family history of cancer, and active tobacco use may be contributing factors to underlying hypercoagulable state. No evidence of malignancy on CT chest/abdomen/pelvis. Exam declined and is now s/p left hemicraniectomy and hematoma evacuation on 02/15. Needs to restart anticoagulation as soon as possible. RECOMMENDATIONS: - Need to resume therapeutic anticoagulation as soon as possible - q1h neuro checks - Hematology for hypercoagulable work up - Factor V leiden negative, cardiolipin antibody negative, protein S 150 (high) and C 55 (low), lupus anticoagulant cascade pending, and beta 2 glycoprotein negative - DVT present in left upper extremity - Echo completed; no thrombus, no evidence of R heart strain - CT chest/abdomen/pelvis showing acute pulmonary embolism - No IVC filter per hematology/ IR - PT/OT/RATING CLERK evaluation - Consider repeat CTV, likely next week Cecelia Rosairo DO Department of Neurology, PGY3 Pager #[phone] (#[phone] on nights and weekends) 02/19/2020 8:22 Attestation statement: I saw and examined the patient with the resident on 02/19/2020. I agree withthe findings and plan of care documented in the resident's note. No further stroke work up needed. Work up for orthostatic changes as per primary team. Michelet Paz MD MSc * Trenton Marlow MD - 02/19/2020 0737 EDT Neurosurgery: Surgical drain removed at bedside. Tip intact. Site closed with staple. No complications. Trenton Marlow MD Neurosurgery Resident 02/19/2020 7:37 Neurosurgery Service Pager [phone] * Trenton Marlow MD - 02/19/2020 7393 EDT Neurosurgery Progress Note Problems/ Left transverse venous sinus thrombosis with intracerebral hemorrhage Midline Shift Brain compression Encephalopathy Procedures/ Left sided craniectomy and hematoma evacuation (Penar, 02/16/20) 24/ Temp: [36.6 ??C (97.9 ??F)-37.3 ??C (99.1 ??F)] () Drain output: 85cc/24hr, 30cc overnight Passed SBT 02/18 Propofol transitioned to precedex secondary to elevated triglycerides and tachycardia PEG placed Na 144(143) Cardiolipin M positive Exam improvement, intermittently nodding/shaking appropriately and following commands on L Passed SBT this AM Subjective/ Intubated, on light sedation (precedex) Objective/ BP 131/63 Pulse 95 Temp 37.1 ??C (98.8 ??F) (Axillary) Resp 10 Ht 170.2 cm (67) Wt 98.4 kg (217 lb) SpO2 96% BMI 33.99 kg/m?? GCS 10T (E3,V1T,M6) Intubated Eyes open to voice, left eye swollen Following commands, imitating (thumbs up) with bilateral upper extremities Spontaneous movement of bilateral lower extremities Incision C/D/I, flap soft and sunken Assessment/ 50F with tobacco use, cerebral venous thrombosis and intraparenchymal hemorrhage in left frontotemporal area. Admitted to Neuro for close monitoring and heparin drip. Initial head CT at therapeutic dose was stable, but repeat head CT 02/16 demonstrating enlarged hemorrhage with coinciding decreased right sided movement and subsequent dilation of left pupil prompting hypertonic bolus, heparin revers al, mannitol, and OR for emergent Left sided craniectomy and hematoma evacuation. Patient remains intubated post-op. Neuro exam unchanged. Now with acute deep and superficial vein thrombosis in the left upper extremity, on Heparin DVT ppx dosing. Now status post PEG placement with recently improved exam, following commands in bilateral upper extremities. Will wean to extubate today per SICU. Plan/ Hourly neuro checks SBP <140 SICU following, appreciate assistance Wean to extubate per SICU Remove surgical drain Heparin DVT ppx dosing Appreciate hematology recommendation Continue Sodium Acetate, goal Na ~140 Trenton Marlow MD 02/19/2020 6:51 Page [phone] with questions Cosigned by Dane Mcwilliams MD at 02/19/2020 8:23 EDT * Cathryn King, RT - 02/19/2020 0616 EDT Respiratory Progress Note Indications for Respiratory therapy: Vent Data Vitals: Heart Rate: 74 BPM, Resp: 10, SpO2: 96 % FIO2/O2 Device: , , O2 Device: Intubated, FIO2 %: 21 % RT Orders: VC/AC 490 x 14 +5 21% 7.5 ET tube @ 22 Action/Events No acute events overnight. Started weaning trial of 5/5 at 0456 & pt remains on those settings at this time. Plan is to hopefully extubate this morning. Tolerating well although gets anxious/agitated at times. Breath sounds have been clear. Suctioning small/moderate amounts of thick/thin white secretions. RT PEYTON 02/19/20 Respiratory Extubation Note Pre-procedure - The extubation order and correct patient verified. The procedure was coordinated with the RN. Procedure - The patient's oral pharynx and ETT were suctioned for Secretion Amount: Moderate Secretion Color: White and Secretion Consistency: Thick, Thin. A cuff leak was present. The patient was placed on 100% resuscitation bag and the ventilator placed in standby. The patient was extubated and placed on O2 Flow Rate (L/min): 2 l/min O2 Device: (S) Nasal cannula. No stridor was noted and the patient was able to produce voice. RT PEYTON 02/19/20 * Brayan Putnam MD - 02/19/2020 0452 EDT ACS Brief Note: In regards to PEG, site C/D/I bolster intact, 455 out when to gravity. Meds flushing o/n without issue per RN Niki. Okay for Feeds after 1400 today (rate per ICU team) Okay to continue meds Please leave bolster on until tomorrow at [address]ings under bumper ACS to sign off, please call ACS service pager [phone] with any questions or issues with PEG. Brayan Putnam MD 02/19/2020 4:54 * Shawn Renner, RT - 02/18/2020 1618 EDT Respiratory Progress Note Indications for Respiratory therapy: Intubated. Vent and Airway management. Post Op crani Data Vitals: Heart Rate: 73 BPM, Resp: 14, SpO2: 94 % FIO2/O2 Device: , , O2 Device: Intubated, FIO2 %: 21 % RT Orders: Vent - VC AC Rate 14 VT 490 PEEP 5 Action/Events PT received PEG tube at beside this afternoon. Suctioned minimally for white to clear secretions. No secondary wean completed today. Response/Results Wean vent as tolerated with hopes to extubate soon. RT AARON 02/18/20 * Mary Clarke, PT - 02/18/2020 1153 EDT [facility] Acute Therapy [facility] Contact Note Date of Service: 02/18/2020 PT continues to follow patient. Per discussion with RN, patient remains intubated/sedated and plan is for PEG placement today. RN endorsing patient not following commands well. PT will hold today andwill f/u for assessment/treatment as indicated. Mary Clarke, PT 02/18/2020 11:53 * Cheo Luz MD - 02/18/2020 1058 EDT Neurointerventional Radiology Progress Note Name: Ynes White Summary: 50F with left temporal IPH from venous sinus thrombosis, POD#2 decompressive hemicrani. Overnight Events: Stable. On SC Heparin. Plan for PEG today. Current Facility-Administered Medications: acetaminophen (TYLENOL) tablet 650 mg oral Q4H PRN Or acetaminophen (TYLENOL) solution unit dose cup 650 mg per ng tube Q4H PRN Or acetaminophen (TYLENOL) suppository 650 mg rectal Q4H PRN amino acids-protein hydrolysate (PRO SOURCE NOCARB) packet 60 mL feeding tube BID bisacodyL (DULCOLAX) suppository 10 mg rectal Q48H PRN dexMEDEtomidine in 0.9 % NaCL (PRECEDEX) 400 mcg/100 mL infusion intravenous CONTINUOUS dextrose 50 % solution 12.5 g intravenous PRN docusate (COLACE) liquid 100 mg oral BID glucagon injection 1 mg intramuscular PRN heparin injection 5,000 Units subcutaneous Q8H hydrALAzine (APRESOLINE) injection 10 mg intravenous Q1H PRN insulin aspart U-100 (NOVOLOG FLEXPEN) injection subcutaneous Q6H iohexoL (OMNIPAQUE 350) solution 100 mL intravenous Once in imaging labetaloL (TRANDATE) injection 20 mg intravenous Q4H PRN levETIRAcetam (KEPPRA) tablet 500 mg oral Q12H Or levETIRAcetam (KEPPRA) 500 mg in sodium chloride (NS) 0.9 % 100 mL IVPB intravenous Q12H lidocaine (XYLOCAINE) 2 % viscous solution metoprolol (LOPRESSOR) injection 5 mg intravenous Q6H morphine injection 2 mg intravenous Q2H PRN Multivitamins with minerals + ferrous gluconate (CENTRUM) oral solution 15 mL feeding tube DAILY nicotine (NICODERM CQ) 7 mg/24 hr patch 1 Patch transdermal Q24H ondansetron (PF) (ZOFRAN) injection 4 mg intravenous Q4H PRN pantoprazole (PROTONIX) tablet 40 mg oral DAILY Or pantoprazole (PROTONIX) injection 40 mg intravenous DAILY papain-alpha amylase-cellulase (CLOG ZAPPER) 2-5 mL feeding tube PRN phenylephrine-lidocaine 0.25 %-3 % (CO-PHENYLCAINE) topical solution 5 mL topical ONCE prochlorperazine edisylate (COMPAZINE) injection 10 mg intravenous Q6H PRN senna (SENOKOT) tablet 1 Tab oral BID sodium acetate 513 mEq/L intravenous CONTINUOUS Exam: Blood pressure 134/83, pulse 95, temperature 37.1 ??C (98.8 ??F), resp. rate 15, height 170.2 cm (67), weight 98.4 kg (217 lb), SpO2 97 %. General: Intubated Neuro: Opens right eye to voice. Right pupil 4 mm reactive. Left eye swollen shut. Follows commands left upper and lower extremity. RU/LE withdraws to pain. Imaging: Reviewed CTV from yesterday - Improved mass effect and decreased herniation No new hemorrhage Unchanged clot burden in left transverse, sigmoid sinuses and upper left IJ as well as cortical veins A/P: 50 y.o. female with venous sinus thrombosis complicated by left temporal ICH and herniation, now POD#2 after decompressive hemicrani Currently on prophylactic heparin SC dosage per neurosurgery recs. Recommendations: - Resume full anticoagulation as soon as is safe per neurosurgery. - Would offer thrombectomy if she has progressive infarct/hemorrhage on full anticoagulation. Thereis no role for thrombectomy if not anticoagulated, because she would simply re-thrombose. - Please avoid IVC filter if possible, this would block our best access (femoral) for venous sinus thrombectomy. Cheo Luz MD PhD Neurointerventional Radiologist Pager #[phone] * Isabell Lora CCC-SLP - 02/18/2020 6005 EDT Speech-Language Pathology Contact Note RATING CLERK not seeing pt today as she remains intubated. She is also scheduled to have PEG placed today. RATING CLERK will return early next week. Please contact our department if team would like pt seen prior to that time. WILY Lutz #[phone] 02/18/2020 RATING CLERK Department Pager #[phone] * Michelet Paz MD - 02/18/[address] [facility] NEUROLOGY PROGRESS NOTE PATIENT NAME: Ynes White PCP: Alejandrina Carrillo DATE OF ADMISSION: 02/14/2020 DATE OF SERVICE: 02/18/2020 CODE STATUS: Full Code PRIMARY DIAGNOSIS: Cerebral venous thrombosis with resultant left frontotemporal hemorrhage OVERNIGHT EVENTS/SUBJECTIVE: - No significant overnight events Unable to obtain subjective as patient intubated, aphasic. MEDICATIONS: Current Facility-Administered Medications: acetaminophen (TYLENOL) tablet 650 mg oral Q4H PRN Or acetaminophen (TYLENOL) solution unit dose cup 650 mg per ng tube Q4H PRN Or acetaminophen (TYLENOL) suppository 650 mg rectal Q4H PRN amino acids-protein hydrolysate (PRO SOURCE NOCARB) packet 60 mL feeding tube BID bisacodyL (DULCOLAX) suppository 10 mg rectal Q48H PRN dextrose 50 % solution 12.5 g intravenous PRN docusate (COLACE) liquid 100 mg oral BID glucagon injection 1 mg intramuscular PRN heparin injection 5,000 Units subcutaneous Q8H hydrALAzine (APRESOLINE) injection 10 mg intravenous Q1H PRN insulin aspart U-100 (NOVOLOG FLEXPEN) injection subcutaneous Q6H iohexoL (OMNIPAQUE 350) solution 100 mL intravenous Once in imaging labetaloL (TRANDATE) injection 20 mg intravenous Q4H PRN levETIRAcetam (KEPPRA) tablet 500 mg oral Q12H Or levETIRAcetam (KEPPRA) 500 mg in sodium chloride (NS) 0.9 % 100 mL IVPB intravenous Q12H lidocaine (XYLOCAINE) 2 % viscous solution metoprolol (LOPRESSOR) injection 5 mg intravenous Q6H morphine injection 2 mg intravenous Q2H PRN Multivitamins with minerals + ferrous gluconate (CENTRUM) oral solution 15 mL feeding tube DAILY nicotine (NICODERM CQ) 7 mg/24 hr patch 1 Patch transdermal Q24H ondansetron (PF) (ZOFRAN) injection 4 mg intravenous Q4H PRN pantoprazole (PROTONIX) tablet 40 mg oral DAILY Or pantoprazole (PROTONIX) injection 40 mg intravenous DAILY papain-alpha amylase-cellulase (CLOG ZAPPER) 2-5 mL feeding tube PRN phenylephrine-lidocaine 0.25 %-3 % (CO-PHENYLCAINE) topical solution 5 mL topical ONCE potassium chloride (KLOR-CON) packet 40 mEq oral Now prochlorperazine edisylate (COMPAZINE) injection 10 mg intravenous Q6H PRN propOFol (DIPRIVAN) 1000 mg in 100 mL infusion intravenous CONTINUOUS senna (SENOKOT) tablet 1 Tab oral BID sodium acetate 513 mEq/L intravenous CONTINUOUS REVIEW OF SYSTEMS: Unable to obtain due to intubation, mental status. General Exam: General appearance: laying in bed, intubated. Opens eyes to voice. Skin: Skin color, temperature, turgor normal. HEENT: Surgical ghassan in place over left scalp. Left eyelid swollen and unable to open. Lungs: Intubated Extremities: all extremities warm. Neurological Exam: Mental Status/Language: Opens eye to voice. Does not follow any commands. Cranial Nerves: Right pupil briskly reactive to light. Unable to open left eyelid to examine. Face appears symmetric though limited by ET tube. Motor: Normal muscle bulk and supple tone. No abnormal spontaneous movements. Spontaneous movementsof the left arm and bilateral legs, antigravity in both. No spontaneous movement in the right arm though does withdraw from pain. Reflexes: Plantar response downgoing on the left; mute on the right. Sensation: Withdraws from pain in all extremities. Cerebellar: Not assessed given altered mentation and inability to follow complex commands. Gait: Deferred. LABORATORY: CBC: Recent Labs 02/16/20 0308 02/16/20 1140 02/17/20 0519 02/18/20 0544 WBC 9.67 -- 7.76 6.87 RBC 4.22 -- 3.52* 3.50* HGB 14.1 -- 11.9 12.3 HCT 40.8 37 35.5 34.9 MCV 97 -- 101* 100* MCH 33.4* -- 33.8* 35.1* MCHC 34.6 -- 33.5 35.2 PLT 154 -- 142 142 BMP: Recent Labs 02/16/20 0308 02/16/20 1140 02/17/20 0519 02/17/20 1611 02/17/20 2347 02/18/20 0544 NA 133* 136 < > 139 < > 139 138 141 K 3.8 3.5 < > 3.5 < > 4.0 3.5 3.6 CL 101 -- < > 113* < > 117* 114* 112* CO2 25 -- < > 22 < > 18* 22 25 BUN -- -- -- 9* -- -- -- 18 CREATININE 0.62 -- -- 0.55 -- -- -- 0.47* CAION -- 1.13 -- -- -- -- -- -- MG -- -- -- 1.6* -- -- -- 2.2 PHOS -- -- -- 2.7 -- -- -- 2.8 < > = values in this interval not displayed. Coags: Recent Labs 02/16/20 1204 02/17/20 0519 02/18/20 0544 PROTIME 13.7* 13.9* 13.2 INR 1.2* 1.2* 1.1 PTT 28 26 27 LFT: No results for input(s): TBIL, ALKPHOS, AST, ALT, LIPASE, AMYLASE in the last 72 hours. ABG: NEUROIMAGING STUDIES: Personally reviewed. CT HEAD WO CONTRAST 02/12/2020 IMPRESSION: No acute abnormality. CT HEAD WO CONTRAST 02/14/2020 IMPRESSION: 1. Acute intra-axial hemorrhage left temporal and frontal lobes the approximately 5.8 by 3.5 by 4.8cm. Associated subarachnoid hemorrhage over the left hemisphere. 2. 2 mm [id number] midline shift. CTA HEAD NECK 02/14/2020 IMPRESSION No significant abnormality of the major intracranial or cervical arterial vasculature. Please referto dedicated CT venogram for findings of venous thrombosis and slight increase in intraparenchymal hemorrhage. CT HEAD VENOGRAM W CONTRAST 02/14/2020 IMPRESSION 1. Venous thrombosis in the left internal jugular vein, sigmoid and transverse sinus as well as thevein of Kristen. 2. Intraparenchymal hemorrhage related to the venous thrombosis has increased slightly from prior. ?? 3. Unchanged midline shift. No evidence of herniation. CT HEAD WO CONTRAST 02/15/2020 IMPRESSION 1. Unchanged size and mass effect of the intraparenchymal hemorrhages compared to [address] angiogram 8 hours prior. No evidence of herniation. 2. Venous thrombosis as above. CT HEAD WO CONTRAST 02/15/2020 IMPRESSION Interval increase in size of medial component of the parenchymal hematoma in the left temporal and parietal lobes, now with overall size measuring 6.9 x 5.0 x 4.4 cm. There is worsened rightward midline shift of 9 mm compared to [address] HEAD WO CONTRAST 02/16/2020 IMPRESSION 1. Slight interval increase in the size of the parenchymal hematoma in the left temporal and parietal as well as associated vasogenic edema and mass effect. 2. Mild dilatation of the right lateral ventricle and the temporal horn of the left lateral ventricle suggesting ventricular entrapment. 3. Dural venous sinus and cortical vein thrombosis. CT HEAD WO CONTRAST 02/16/2020 IMPRESSION 1. Expected postoperative changes related to evacuation of left temporoparietal parenchymal hematoma. Small residual hemorrhages are present at the periphery of the evacuation site. 2. There is been improved left to right midline shift, currently 8 mm, previously 10 mm. 3. High density is again seen in the left transverse sinus and left vein of Kristen corresponds to known venous thrombosis. CT VENOGRAM HEAD W CONTRAST 02/17/2020 IMPRESSION 1. Dural venous sinus thrombosis within the left transverse sinus, and to a lesser extent the righttransverse sinus, left sigmoid sinus and internal jugular vein, as well as within the left vein of Kristen, not significantly changed compared to the 02/14/2020 CT venogram. 2. Postsurgical changes related to left parenchymal hematoma evacuation with increasing fluid in the soft tissues surrounding the craniectomy. 3. No new or enlarging intracranial hemorrhage with slight interval improvement of local mass effect. Left uncal herniation is unchanged. ?? OTHER DIAGNOSTIC STUDIES: N/A ASSESSMENT: Ynes White is a 50 y.o. woman with a past medical history significant for anxiety/depression and tobacco use disorder who presented with headache and found to have a left cerebral venous thrombosis and resultant intraparenchymal hemorrhage in the left frontotemporal area. Her [employer] hormone replacement therapy (estradiol-norethindrone), family history of cancer, and active tobacco use may be contributing factors to underlying hypercoagulable state. No evidence of malignancy on CT chest/abdomen/pelvis. Exam declined and is now s/p left hemicraniectomy and hematoma evacuation on 02/15. Needs to restart anticoagulation as soon as possible. RECOMMENDATIONS: Cerebral venous thrombosis , PE, DVT - Need to resume anticoagulation as soon as possible - q1h neuro checks - Hematology for hypercoagulable work up - factor V leiden negative, cardiolipin antibody pending, protein S 150 (high) and C 55 (low), lupus anticoagulant cascade pending, and beta 2 glycoprotein pending - DVT present in left upper extremity - Echo completed; no thrombus, no evidence of R heart strain - CT chest/abdomen/pelvis showing acute pulmonary embolism - Recommending against IVC filter - PT/OT/RATING CLERK evaluation when able Cecelia Rosario DO Department of Neurology, PGY3 Pager #[phone] (#[phone] on nights and weekends) 02/18/2020 8:12 Attestation statement: I saw and examined the patient with the resident on 02/18/2020. ??I agree with the findings and plan of care documented in the resident's note. Needs AC as soon as possible. ?? Michelet Paz MD MSc * Damon Eckert MD - 02/18/2020 0640 EDT Neurosurgery Progress Note Problems/ Left transverse venous sinus thrombosis with intracerebral hemorrhage Midline Shift Brain compression Encephalopathy Procedures/ Left sided craniectomy and hematoma evacuation (Penar, 02/16/20) 24/ Plan for PEG today Sodium 138, on 40 cc Sodium acetate 150 cc out drain CTV obtained - no extension of clot Subjective/ Intubated, sedation held Objective/ BP 132/82 Pulse 95 Temp 36.8 ??C (98.2 ??F) (Axillary) Resp 15 Ht 170.2 cm (67) Wt 98.4 kg (217 lb) SpO2 97% BMI 33.99 kg/m?? GCS 9T (E3,V1T,M5) Intubated and sedated Right Eye open to voice, left eye swollen shut Localizing bl UE Withdrawal or bilateral lower extremities Incision C/D/I, flap soft and sunken Assessment/ 50F with tobacco use, cerebral venous thrombosis and intraparenchymal hemorrhage in left frontotemporal area. Admitted to Neuro for close monitoring and heparin drip. Initial head CT at therapeutic dose was stable, but repeat head CT 02/16 demonstrating enlarged hemorrhage with coinciding decreased right sided movement and subsequent dilation of left pupil prompting hypertonic bolus, heparin revers al, mannitol, and OR for emergent Left sided craniectomy and hematoma evacuation. Patient remains intubated post-op. Neuro exam unchanged. Now with acute deep and superficial vein thrombosis in the left upper extremity, on Heparin DVT ppx dosing. Plan for PEG today Plan/ Hourly neuro checks SBP <140 SICU following, appreciate assistance PEG today Heparin DVT ppx dosing Appreciate hematology recommendation Vent management per SICU Continue Sodium Acetate, goal Na ~140 Will discuss drain removal with attending Damon Eckert MD 02/18/2020 6:41 Page [phone] with questions Cosigned by Jerry Merrill MD at 02/18/2020 9:15 EDT Associated attestation - Jerry Merrill MD - 02/18/2020 0915 EDT Neurosurgery Staff Patient seen and independently examined. I have reviewed history, pertinent exam findings, and relevant imaging with the resident and agree with the resident note, with the following additions/amendments: Exam stable. For PEG today. Yehuda Merrill MD Neurosurgery * Shawn Mccollum MD - 02/18/2020 0681 EDT ICU Progress Note Admit Date: 02/14/2020 LOS: 4 days CC: Cerebral venous thrombosis Subjective: HPI: Ynes White is a 50 y.o. female w PMH significant for cigarette smoking who presented 02/13 after left frontotemporal IPH secondary to cerebral venous sinus thrombosis (left IJ, sigmoid, transverse sinuses). Monitored x 2 days with stable neuro exam (global aphasia, symmetric strength) andstarted on heparin drip. However significant expansion of IPH 02/15 with concurrent decline in exam to GCS8, right sided weakness and progressively dilated L pupil, prompting 3%, mannitol, and emergent craniectomy with clot removal. SICU team consulted for airway and ICP management preoperatively. 24 Hour events: CTV no propogation Patient started on heparin 5000 q8hr, okay w neurosurgery Started on pro source nutrition DVT LUE. No indication for IVC filter Weaned off Nicardipine gtt, PRN hydralazine (x3 overnight) and labetalol (x1 overnight) for SBP>140 Consulted ACS for placement of PEG Remained intubated for PEG today Passed 1hr SBT in PM Switched from 3% sodium chloride to 40mL/hr 3% sodium acetate; goal Na>140 Na 138(139) Overnight 12 beats of vtach. Asymptomatic. K of 3.5., ongoing repletion SBT this AM WBC 6.8 Hct 34.9 Net IO +1.2L in 24 hrs, UOP 35-55/hr overnight Drain 150 in 24 hours, 40 overnight History reviewed. No pertinent past medical history. History reviewed. No pertinent surgical history. Allergies Allergen Reactions ??? Citalopram Other reaction(s): increased anxiety ??? Duloxetine Other reaction(s): increased anxiety ??? Pregabalin Other reaction(s): dizziness ??? Zolpidem Other reaction(s): sleep walking with over 5 mg Family History Problem Relation Age of Onset ??? Cancer Mother 72 Liver ??? Cancer Father 79 mesothelioma ??? Cancer Maternal Grandmother 80 Social History Tobacco Use ??? Smoking status: Current Every Day Smoker Packs/day: 0.25 Years: 15.00 Pack years: 3.75 ??? Smokeless tobacco: Never Used Substance Use Topics ??? Alcohol use: Yes ??? Drug use: Not on file Medications: amino acids-protein hydrolysate 60 mL feeding tube BID docusate 100 mg oral BID heparin 5,000 Units subcutaneous Q8H insulin aspart U-100 subcutaneous Q6H iohexoL 100 mL intravenous Once in imaging levETIRAcetam 500 mg oral Q12H Or levETIRAcetam 500 mg intravenous Q12H lidocaine metoprolol 5 mg intravenous Q6H Multivitamins with minerals + ferrous gluconate 15 mL feeding tube DAILY nicotine 1 Patch transdermal Q24H pantoprazole 40 mg oral DAILY Or pantoprazole 40 mg intravenous DAILY phenylephrine-lidocaine 0.25 %-3 % 5 mL topical ONCE senna 1 Tab oral BID Objective: Vital Signs: BP 140/80 Pulse 95 Temp 37.1 ??C (98.8 ??F) Resp 18 Ht 170.2 cm (67) Wt 98.4 kg (217 lb) SpO2 96% BMI 33.99 kg/m?? BP: (125-147)/(63-100) () Pulse: -- () Temp: [36.8 ??C (98.2 ??F)-37.9 ??C (100.2 ??F)] () Resp: [14-22] () SpO2: [95 %-100 %] () Admission weight: Weight : 98.5 kg (217 lb 2.5 oz) Most recent weight: Weight : 98.4 kg (217 lb) I/O: Current Shift: 02/17 700 - 02/17 1459 In: 183 [I.V.:133] Out: 195 [Urine:175; Drains:20] 24 hrs: 02/16 0700 - 02/17 0659 In: 3006.2 [I.V.:2238.2] Out: 1740 [Urine:1590; Drains:150] Tubes/Lines/Infusions: Reyes PIV Physical Exam: Gen: NAD, minimal spontaneous movements, on propofol 40 Resp: CTA BL CV: tachycardic, regular rhythm Abd: soft, nondistended : Reyes in place, clear yellow urine Ext: Minimal edema Neuro: Flap soft and compressible. Left periorbital edema, eye swollen closed PERRL Eyes open to noxious Localizing and purposeful with BUE Not following, not clearly mimicking Moving Bilateral Lower extremities, withdrawing to noxious [id number] Labs: CBC: Recent Labs 02/16/20 0308 02/16/20 1140 02/17/20 0519 02/18/20 0544 WBC 9.67 -- 7.76 6.87 RBC 4.22 -- 3.52* 3.50* HGB 14.1 -- 11.9 12.3 HCT 40.8 37 35.5 34.9 MCV 97 -- 101* 100* MCH 33.4* -- 33.8* 35.1* MCHC 34.6 -- 33.5 35.2 PLT 154 -- 142 142 BMP: Recent Labs 02/16/20 0308 02/16/20 1140 02/17/20 0519 02/17/20 1611 02/17/20 2347 02/18/20 0544 NA 133* 136 < > 139 < > 139 138 141 K 3.8 3.5 < > 3.5 < > 4.0 3.5 3.6 CL 101 -- < > 113* < > 117* 114* 112* CO2 25 -- < > 22 < > 18* 22 25 BUN -- -- -- 9* -- -- -- 18 CREATININE 0.62 -- -- 0.55 -- -- -- 0.47* CAION -- 1.13 -- -- -- -- -- -- MG -- -- -- 1.6* -- -- -- 2.2 PHOS -- -- -- 2.7 -- -- -- 2.8 < > = values in this interval not displayed. ABG: Recent Labs 02/16/20 1140 02/16/20 1635 PHISTAT 7.40 7.44 PCOISTAT 41 34* POISTAT 151* 137* POCTCO2 27 24 Coags: Recent Labs 02/16/20 1204 02/17/20 0519 02/18/20 0544 PROTIME 13.7* 13.9* 13.2 INR 1.2* 1.2* 1.1 PTT 28 26 27 Imaging: DVT US UE 02/16/20 ??? Positive for acute deep and superficial vein thrombosis in the left upper extremity. ??? Positive for acute superficial vein thrombosis in the right upper extremity. Negative for deep vein thrombosis in the right upper extremity. DVT US LE 02/16/2020 ??? No evidence of deep or superficial venous thrombosis in the left lower extremity. ??? Acute superficial vein thrombosis noted in the right lower extremity; no evidence of deep venous thrombosis on the right. CT head post operatively 02/16/2020 1. Expected postoperative changes related to evacuation of left temporoparietal parenchymal hematoma. Small residual hemorrhages are present at the periphery of the evacuation site. 2. There is been improved left to right midline shift, currently 8 mm, previously 10 mm. 3. High density is again seen in the left transverse sinus and left vein of Kristen corresponds to known venous thrombosis. ?? CTV (02/17/20) 1. Dural venous sinus thrombosis within the left transverse sinus, and to a lesser extent the righttransverse sinus, left sigmoid sinus and internal jugular vein, as well as within the left vein of Kristen, not significantly changed compared to the 02/14/2020 CT venogram. 2. Postsurgical changes related to left parenchymal hematoma evacuation with increasing fluid in the soft tissues surrounding the craniectomy. 3. No new or enlarging intracranial hemorrhage with slight interval improvement of local mass effect. Left uncal herniation is unchanged. Assessment: Patient: 50 y.o. female w PMH significant for cigarette smoking who presented 02/13 after left frontotemporal IPH secondary to cerebral venous sinus thrombosis. Monitored x 2 days with stable neuro exam (global aphasia, symmetric strength) and started on heparin drip. However significant expansion of IPH 02/15 with concurrent decline in neuro exam prompting emergent craniectomy with clot removal. SICU team consulted for airway and ICP management. Plan for PEG today, possible extubation thereafter. Principal Problem: Cerebral venous thrombosis Active Problems: Cerebral venous sinus thrombosis Brain herniation (HCC-CMS) Cerebral edema (HCC-CMS) Plan: Neuro: Intubated . Morphine and tylenol for pain. Q1h neuro checks. Neurosurgery, Neurology, Neuro IR following. Ophthalmology signed off. CV: Cardiac monitoring. Telemetry. SBP goal <140. Nicardipine gtt off, requiring PRN hydralazineand labetalol. [place]op q6 Pulm: Passed SBT 1 hr 02/16, remained intubated pending PEG today. VC AC while receiving peg. Will discuss trach vs extubation post PEG GI/FEN: NPO. Tube feeds currently held pending PEG today, will resume after, nutrition consulted. Goal Na >140. Q6 lytes, 40mL/hr 3% sodium acetate infusion. 40mL/hr NS/KCl. Replete lytes prn. Renal: Cr 0.47 from 0.55. UOP WNL. Trend BUN/Cr, watch UOP. Heme: Hct stable. Will monitor daily CBC. SQH q8h started. Hematology following for hypercoagulability workup. Currently no indication for IVC filter, LUE DVT. Possible placement of picc vs central line today ID: WBC 6.7 from 7. Trend WBC and fever curve. Periop antibiotics. Endo: POCT FSBG. Musculoskeletal: HOB elevated Ppx: SCDs, protonix IV, SQH 5000 q8h, heparin drip to restart pending NS recommendations Daily ICU Checklist Prophylaxis: DVT Prophylaxis: Heparin, Unfractionated;SCDs GI Prophylaxis: Yes Skin Integrity Risk Factors: Yes Pressure Ulcer / Breakdown Present?: No CAM-ICU: Unable to assess Ventilation/Sedation: Weaning Assessment: Pass Extubated Post Weaning Assessment: No Non-Extubation Rationale: Other (Comment)(Post peg) Goal RASS: 0 Daily Awakening Performed: Yes Is there anticipated need of a chest x-ray the next morning of ICU stay?: No Procalcitonin: Currently Following Procalcitonin: No Early Mobility: Activity Order: Activy as tolerated Does The Patient Meet Physiological Criteria For PT Referral: No Fluids/Nutrition: Daily Fluid Goal: Even Tube Feedings: No Lines: Vascular Access Assessment: Peripheral access adequate Urinary (Reyes) Catheter Assessment: Reyes catheter indicated Communication: Updates: Family updated today Interdisciplinary Items: Patient Eligible For Transfer: No Off Unit Testing / OR: Other (Comment)(Peg at bedside) Daily Goals: Peg today, wean vent, possbile picc placement, blood pressure/HR control Shawn Mccollum MD 02/18/2020 08:45 SICU pager #[phone] Cosigned by Priyank Escobar MD at 02/19/2020 18:26 EDT Associated attestation - Priyank Escobar MD - 02/19/2020 1826 EDT Attending Note I examined and discussed this pt with the residents on 02/18/20 and agree with the above note Total time spent: 32 min Critical Care Dx: Fluid electolyte abn, resp abn, AMS CT stable, neuro exam stable, cont hypertonic fluid to keep Na > 140, switched to NA acetate forhyperchloremia, PEG today Priyank Escobar MD [id number] * Liliana Santiago, RT - 02/17/2020 1725 EDT Respiratory Progress Note Indications for Respiratory therapy: Vent Data Vitals: Heart Rate: 97 BPM, Resp: 16, SpO2: 99 % FIO2/O2 Device: O2 Device: Intubated, FIO2 %: 21 % RT Orders: VC/AC 490 x 14 Peep 5 30% Action/Events Patient has been stable on these vent settings today with minimal secretions. LILIANA SANTIAGO, RT 02/17/20 * Elizabeth Galvan MD - 02/17/2020 1623 EDT ACS consulted for possible PEG. Patient's brother (Caro, ) consented. Consent in chart.Attempted to call patient's sister Lucille ([phone]) twice however was unable to reach her to update her. Will try again tomorrow morning. Elizabeth Galvan MD PGY-2 Pager: #[phone] 02/17/2020 16:24 * Trish Dumas RN - 02/17/2020 1448 EDT Initial Case Management/Social Work Assessment and Discharge Plan/Readmission Risk Assessment REASON FOR ADMISSION: Cerebral venous thrombosis Patient understands reason for admission: No PATIENT CONTACT INFO VERIFIED: Yes PATIENT ADDRESS VERIFIED: Yes LIVING ARRANGEMENTS AND ACCESSIBILITY ISSUES: Living Arrangements: Apartment Bathroom located on bedroom level?: No What in home social supports are available to the patient? Family member(s) Is 24/7 care available? No ADVANCED DIRECTIVES, POA &/or COLST IN PLACE: Healthcare Directive: No, patient does not have advance directive for healthcare treatment Information Provided on Healthcare Directives: No Information on Healthcare Directives Requested: No DIRECTIVES FOR FINANCES: Directive For Finances: No TRANSPORTATION: Transportation: Family CULTURAL, MORAVIAN and/or LANGUAGE factors affecting health care/discharge planning: Spiritual/Cultural Requests: None Any factors affecting health care/discharge planning?: No Insurance in Place: Yes Medical Insurance: Yes Type of insurance: Medicaid Medicaid Type: Community Referred to patient financial services: No DISCHARGE RISK ASSESSMENT: None of the above risks identified Total # selected above: Score: Zero Tentative plan to address the risk of re-hospitalization for those at HIGH MODERATE RISK: RAPT TOOL: Age: 50-65 Gender: Female Ambulation distance: 2 or more blocks (600ft) Gait device: None Community Services: Home health, MOW, SASH-none of one time a week Will you live with someone who will care for you?: Yes RAPT Tool Score: 11 Patient expects to be discharged to: rehab SBIRT: Intervention in place/initiated?: No, not indicated FUNCTIONAL STATUS: Activities patient requires assistance: None Assistive Device: None COMMUNITY RESOURCES/SUPPORTS: Primary Care Provider: Alejandrina Carrillo PCP Verified: Yes Specialists: None Type of Home Health Services: None DME Provider: Pharmacy: [facility][id number] - [address] AT SEC OF [facility] & [address] [id number] Home Health: Other: POST HOSPITAL TRANSITION PLAN: Unclear at this time but prior to second procedure plan was for [place]. Will need to re-refer once stable. TRISH DUMAS RN,BSN #[id number] 02/17/2020 14:48 * Isabell Lora CCC-SLP - 02/17/2020 1417 EDT Speech-Language Pathology Contact Note Attempted to see pt to provide further diagnostic/therapeutic intervention for dysphagia and communication. Pt remains intubated. Met with pt's nurse who reported that the plan is to try and extubatept later today. Given this, RATING CLERK will return tomorrow to continue work on the above if pt does get extubated later today. NICK LutzRATING CLERK #[id number] 02/17/2020 RATING CLERK Department Pager #[phone] * Claus Piña MD - 02/17/[address] today shows stability of postop residual clot and edema. CTV does not show extension of venous clot to my view (and preliminary). Certainly the SSS fills well. Appreciate opinion of IR that clot extraction may be an option if IV clot expands. I would not resume full anticoagulation at this time. Prophylactic dosing of heparin could be used at 48 hrs, assuming further stability of ICH and cerebral edema. Pt had bled significantly on heparin anticoagulation, was in a life- threatening condition, and needed urgent surgery. If she re-bleeds in the brain we may run out of treatment options. Claus Piña MD FACS FAANS Professor, Neurological Surgery * Tigre Galindo, PT - 02/17/2020 1343 EDT [facility] Acute Therapy [facility] Contact Note Date of Service: 02/17/2020 Patient is now status post left-sided craniectomy and hematoma evacuation on 02/16/2020 Patient currently intubated. As discussed with nursing, will defer physical therapy reassessment today. TIGRE GALINDO, PT 02/17/2020 13:43 [id number] * Shasha Richardson RN - 02/17/2020 1002 EDT 02/16: In to assess pt for Teja score < 13. No skin issues at this time per bedside nurse Marifer. Recommend Reposition pt q2hrs Float heels off from mattress Shasha Richardson, Pressure Ulcer Prevention Nurse * Kisha Prasad RN - 02/17/2020 0812 EDT Acute Inpatient Rehabilitation Rehab Referral Review Patient Review: Referral received. Patient taken emergently to OR 02/15 -Left sided craniectomy and hematoma evacuation. Patient remains intubated post-op. Neuro exam unchanged. Now with acute deep and superficial vein thrombosis in the left upper extremity. Referral Status and Assessment: Not medically ready OT/PT pending post operatively. Medical test/procedure/consult Follow-up Plan: Please re refer when medically stable and participatory in therapy. VANCE Gan, RN [facility] Acute Rehabilitation Unit Pathology Laboratory Aide Pager # [phone] / [phone] * Shawn Mccollum MD - 02/17/2020 0727 EDT ICU Progress Note Admit Date: 02/14/2020 LOS: 3 days CC: Cerebral venous thrombosis Subjective: HPI: Ynes White is a 50 y.o. female w PMH significant for cigarette smoking who presented 02/13 after left frontotemporal IPH secondary to cerebral venous sinus thrombosis (left IJ, sigmoid, transverse sinuses). Monitored x 2 days with stable neuro exam (global aphasia, symmetric strength) andstarted on heparin drip. However significant expansion of IPH 02/15 with concurrent decline in exam to GCS8, right sided weakness and progressively dilated L pupil, prompting 3%, mannitol, and emergent craniectomy with clot removal. SICU team consulted for airway and ICP management preoperatively. 24 Hour events: Declining neuro exam OR emergently CT scan head DVT scan with DVT LUE Goal SBP <140 Nicardipine gtt Remained intubated on vent 3% saline gtt started Hypokalemia repleted Temperature 38.2 History reviewed. No pertinent past medical history. History reviewed. No pertinent surgical history. Allergies Allergen Reactions ??? Citalopram Other reaction(s): increased anxiety ??? Duloxetine Other reaction(s): increased anxiety ??? Pregabalin Other reaction(s): dizziness ??? Zolpidem Other reaction(s): sleep walking with over 5 mg Family History Problem Relation Age of Onset ??? Cancer Mother 72 Liver ??? Cancer Father 79 mesothelioma ??? Cancer Maternal Grandmother 80 Social History Tobacco Use ??? Smoking status: Current Every Day Smoker Packs/day: 0.25 Years: 15.00 Pack years: 3.75 ??? Smokeless tobacco: Never Used Substance Use Topics ??? Alcohol use: Yes ??? Drug use: Not on file Medications: amino acids-protein hydrolysate 60 mL feeding tube TID docusate sodium 100 mg oral BID insulin aspart U-100 subcutaneous Q6H iohexoL 100 mL intravenous Once in imaging levETIRAcetam 500 mg oral Q12H Or levETIRAcetam 500 mg intravenous Q12H lidocaine magnesium sulfate 2g in D5W 50 ml 2 g intravenous Now Multivitamins with minerals + ferrous gluconate 15 mL feeding tube DAILY nicotine 1 Patch transdermal Q24H ondansetron (PF) pantoprazole 40 mg oral DAILY Or pantoprazole 40 mg intravenous DAILY phenylephrine-lidocaine 0.25 %-3 % 5 mL topical ONCE prochlorperazine edisylate propOFol rocuronium [START ON 02/18/2020] senna 1 Tab oral BID Objective: Vital Signs: BP 122/68 Pulse 95 Temp 37.5 ??C (99.5 ??F) (Oral) Resp 14 Ht 170.2 cm (67) Wt 98.4 kg (217 lb) SpO2 98% BMI 33.99 kg/m?? BP: (110-128)/(63-78) () Pulse: -- () Temp: [37 ??C (98.6 ??F)-38.2 ??C (100.8 ??F)] () Resp:[13-23] () SpO2: [92 %-100 %] () Admission weight: Weight : 98.5 kg (217 lb 2.5 oz) Most recent weight: Weight : 98.4 kg (217 lb) I/O: Current Shift: No intake/output data recorded. 24 hrs: 02/15 0700 - 02/16 0659 In: 6136 [I.V.:5665] Out: 4325 [Urine:3725; Drains:200] Tubes/Lines/Infusions: Reyes Nicardipine PIV Physical Exam: Gen: NAD, minimal spontaneous movements Resp: CTA BL CV: RRR Abd: soft, nondistended : Reyes in place, clear yellow urine Ext: Minimal edema Neuro: L pupil 3mm sluggishly reactive, R pupil 4mm reactive Eyes closed Incoherent verbalization Nonspecific movement to command LUE, minimally mimicking Bilateral upper extremities cross midline Moving Bilateral Lower extremities Labs: CBC: Recent Labs 02/14/20 1748 02/15/20 0315 02/16/20 0308 02/16/20 1140 02/17/20 0519 WBC 6.92 9.07 9.67 -- 7.76 RBC 4.47 4.84 4.22 -- 3.52* HGB 15.1 15.9* 14.1 -- 11.9 HCT 44.8* 47.3* 40.8 37 35.5 MCV 100* 98 97 -- 101* MCH 33.8* 32.9 33.4* -- 33.8* MCHC 33.7 33.6 34.6 -- 33.5 PLT 167 158 154 -- 142 NEUTROABS 5.03 -- -- -- -- BMP: Recent Labs 02/14/20 1748 02/15/20 0315 02/16/20 0308 02/16/20 1140 02/16/20 1723 02/16/20 2328 02/17/20 0519 NA 135* 136 133* 136 134* 138 139 K 4.7 4.1 3.8 3.5 3.6 3.2* 3.5 CL 105 103 101 -- 106 111* 113* CO2 26 23 25 -- 25 22 BUN 11 -- -- -- -- -- 9* CREATININE 0.66 0.61 0.62 -- -- -- 0.55 CALCIUM 8.8 -- -- -- -- -- -- CALCCA 9.1 -- -- -- -- -- -- CAION -- -- -- 1.13 -- -- -- MG -- -- -- -- -- -- 1.6* PHOS -- -- -- -- -- -- 2.7 ABG: Recent Labs 02/16/20 1140 02/16/20 1635 PHISTAT 7.40 7.44 PCOISTAT 41 34* POISTAT 151* 137* POCTCO2 27 24 Coags: Recent Labs 02/16/20 1204 02/17/20 0519 PROTIME 13.7* 13.9* INR 1.2* 1.2* PTT 28 26 Imaging: DVT US UE 02/16/20 ??? Positive for acute deep and superficial vein thrombosis in the left upper extremity. ??? Positive for acute superficial vein thrombosis in the right upper extremity. Negative for deep vein thrombosis in the right upper extremity. DVT US LE 02/16/2020 ??? No evidence of deep or superficial venous thrombosis in the left lower extremity. ??? Acute superficial vein thrombosis noted in the right lower extremity; no evidence of deep venous thrombosis on the right. CT head post operatively 02/16/2020 IMPRESSION 1. Expected postoperative changes related to evacuation of left temporoparietal parenchymal hematoma. Small residual hemorrhages are present at the periphery of the evacuation site. ?? 2. There is been improved left to right midline shift, currently 8 mm, previously 10 mm. ?? 3. High density is again seen in the left transverse sinus and left vein of Kristen corresponds to known venous thrombosis. ?? Assessment: Patient: 50 y.o. female w PMH significant for cigarette smoking who presented 02/13 after left frontotemporal IPH secondary to cerebral venous sinus thrombosis. Monitored x 2 days with stable neuro exam (global aphasia, symmetric strength) and started on heparin drip. However significant expansion of IPH 02/15 with concurrent decline in neuro exam prompting emergent craniectomy with clot removal. SICU team consulted for airway and ICP management. Principal Problem: Cerebral venous thrombosis Active Problems: Cerebral venous sinus thrombosis Plan: Neuro: intubated . Morphine and tylenol for pain. Q1h neuro checks. Neurosurgery, Neurology, Neuro IR, ophthalmology (no papilledema. signed off) following - CTV today CV: [id number], HR in 80-90s. Cardiac monitoring. Telemetry. Nicardipine drip for SBP<140. Wean as tolerated. SBP goal <140 Pulm: SBT for 1 hour. Remain Intubated pending CTV. Will discuss trach vs extubation post CTV GI/FEN: NPO. Will consider tube feeds pending duration of intubation, nutrition consulted. Goal Na >140. Q6 lytes, 10mL/hr 3% infusion. 75mL/hr NS/KCl. Decrease to 40mL/hr. Replete lytes prn. Renal: Cr 0.55 from 0.62. UOP 0.6-0.9. Trend BUN/Cr, watch UOP. Heme: Will monitor daily CBC. Heparin drip reversed w protamine. Hematology following for hypercoagulability workup. ID: WBC 7 from 9. Trend WBC and fever curve. Periop antibiotics. Endo: POCT FSBG. Musculoskeletal: HOB elevated Ppx: SCDs, protonix IV, no DVT ppx or heparin drip pending NS recommendations. Daily ICU Checklist Prophylaxis: DVT Prophylaxis: SCDs;Contraindicated (Teds. ) GI Prophylaxis: Yes Skin Integrity Risk Factors: Yes Pressure Ulcer / Breakdown Present?: No CAM-ICU: Unable to assess Ventilation/Sedation: Weaning Assessment: Pass Extubated Post Weaning Assessment: No Non-Extubation Rationale: Mental status compromised Goal RASS: 0 Daily Awakening Performed: Yes Is there anticipated need of a chest x-ray the next morning of ICU stay?: No Procalcitonin: Early Mobility: Does The Patient Meet Physiological Criteria For PT Referral: No Early Mobilization Exceptions: Other (Comment)(Crainectomy without protective helmet) Fluids/Nutrition: Daily Fluid Goal: Even Tube Feedings: Yes Last Bowel Movement: 02/13/20 Lines: Vascular Access Assessment: Peripheral access adequate Urinary (Reyes) Catheter Assessment: Reyes catheter indicated Communication: Interdisciplinary Items: Patient Eligible For Transfer: No Off Unit Testing / OR: CT;IR Daily Goals: electrolyte balance, CTV, Possible DVT ppx, Possible IR, wean to extubate Shawn Mccollum MD 02/17/2020 08:59 SICU pager #[phone] Cosigned by Priyank Escobar MD at 02/17/2020 12:24 EDT Associated attestation - Priyank Escobar MD - 02/17/2020 1224 EDT Attending Note I examined and discussed this pt with the residents on 02/17/20 and agree with the above note Total time spent; 31 min Critical care Dx: Fluid/electrolyte abn, altered mental status, intracranial hemorrhage Pt sp Craniectomy for ICH 2nd venous infarct, intubated, stable on vent, neuro exam stable, cont hypertonic 3% saline target Na > 140, monitor hyperchloremia, CT venogram brain today per NS. Priyank Escobar MD [id number] * Michelet Paz MD - 02/17/[address] [facility] NEUROLOGY PROGRESS NOTE PATIENT NAME: Ynes White PCP: Alejandrina Carrillo DATE OF ADMISSION: 02/14/2020 DATE OF SERVICE: 02/17/2020 CODE STATUS: Full Code PRIMARY DIAGNOSIS: Cerebral venous thrombosis with resultant left frontotemporal hemorrhage OVERNIGHT EVENTS/SUBJECTIVE: - To OR yesterday with successful craniotomy and hematoma evacuation - Bilateral upper and lower extremities complete. DVT present in the left arm. Also bilateral superficial venous thrombosis in the arms, superficial thrombosis in the left leg - Passed weaning trial this morning Unable to obtain subjective as patient intubated, aphasic. MEDICATIONS: Current Facility-Administered Medications: acetaminophen (TYLENOL) tablet 650 mg oral Q4H PRN Or acetaminophen (TYLENOL) solution unit dose cup 650 mg per ng tube Q4H PRN Or acetaminophen (TYLENOL) suppository 650 mg rectal Q4H PRN amino acids-protein hydrolysate (PRO SOURCE NOCARB) packet 60 mL feeding tube TID [START ON 02/18/2020] bisacodyL (DULCOLAX) suppository 10 mg rectal Q48H PRN dextrose 50 % solution 12.5 g intravenous PRN docusate sodium (COLACE) capsule 100 mg oral BID glucagon injection 1 mg intramuscular PRN hydrALAzine (APRESOLINE) injection 10 mg intravenous Q1H PRN insulin aspart U-100 (NOVOLOG FLEXPEN) injection subcutaneous Q6H iohexoL (OMNIPAQUE 350) solution 100 mL intravenous Once in imaging levETIRAcetam (KEPPRA) tablet 500 mg oral Q12H Or levETIRAcetam (KEPPRA) 500 mg in sodium chloride (NS) 0.9 % 100 mL IVPB intravenous Q12H lidocaine (XYLOCAINE) 2 % viscous solution morphine injection 2 mg intravenous Q2H PRN Multivitamins with minerals + ferrous gluconate (CENTRUM) oral solution 15 mL feeding tube DAILY niCARdipine (CARDENE) 25 mg in sodium chloride (NS) 0.9 % 250 mL peripheral infusion intravenous CONTINUOUS nicotine (NICODERM CQ) 7 mg/24 hr patch 1 Patch transdermal Q24H ondansetron (PF) (ZOFRAN) 4 mg/2 mL injection ondansetron (PF) (ZOFRAN) injection 4 mg intravenous Q4H PRN pantoprazole (PROTONIX) tablet 40 mg oral DAILY Or pantoprazole (PROTONIX) injection 40 mg intravenous DAILY papain-alpha amylase-cellulase (CLOG ZAPPER) 2-5 mL feeding tube PRN papain-alpha amylase-cellulase (CLOG ZAPPER) 2-5 mL feeding tube PRN peptamen AF per g tube CONTINUOUS phenylephrine-lidocaine 0.25 %-3 % (CO-PHENYLCAINE) topical solution 5 mL topical ONCE prochlorperazine edisylate (COMPAZINE) 10 mg/2 mL (5 mg/mL) injection prochlorperazine edisylate (COMPAZINE) injection 10 mg intravenous Q6H PRN propOFol (DIPRIVAN) 10 mg/mL injection propOFol (DIPRIVAN) 1000 mg in 100 mL infusion intravenous CONTINUOUS rocuronium (ZEMURON) 10 mg/mL injection [START ON 02/18/2020] senna (SENOKOT) tablet 1 Tab oral BID sodium chloride 0.9 % with KCl 20 mEq/L infusion intravenous CONTINUOUS sodium chloride 3 % infusion intravenous CONTINUOUS REVIEW OF SYSTEMS: Unable to obtain due to intubation, mental status. General Exam: General appearance: laying in bed, intubated. Opens eyes to voice. Skin: Skin color, temperature, turgor normal. HEENT: Surgical ghassan in place over left scalp, no surrounding erythema. Lungs: Intubated Extremities: all extremities warm. Neurological Exam: Mental Status/Language: Opens eyes to voice and maintains alertness. Does not follow any commands. Cranial Nerves: Pupils equal, round, and briskly reactive to light. Gaze is midline. Face appears symmetric though limited by ET tube. Motor: Normal muscle bulk and supple tone. No abnormal spontaneous movements. When left arm and legare lifted, she is able to maintain them antigravity. Does not maintain right arm or leg antigravity. Some non-purposeful spontaneous movement seen in right arm Reflexes: Plantar response downgoing on the left; mute on the right. Sensation: No movement in the right arm to noxious stimuli, though sensation is intact there as shemoves her legs in response to this. Withdraws right leg to pain. Cerebellar: Not assessed given altered mentation and inability to follow complex commands. Gait: Deferred. LABORATORY: CBC: Recent Labs 02/14/20 1748 02/15/20 0315 02/16/20 0308 02/16/20 1140 02/17/20 0519 WBC 6.92 9.07 9.67 -- 7.76 RBC 4.47 4.84 4.22 -- 3.52* HGB 15.1 15.9* 14.1 -- 11.9 HCT 44.8* 47.3* 40.8 37 35.5 MCV 100* 98 97 -- 101* MCH 33.8* 32.9 33.4* -- 33.8* MCHC 33.7 33.6 34.6 -- 33.5 PLT 167 158 154 -- 142 NEUTROABS 5.03 -- -- -- -- BMP: Recent Labs 02/14/20 1748 02/15/20 0315 02/16/20 0308 02/16/20 1140 02/16/20 1723 02/16/20 2328 02/17/20 0519 NA 135* 136 133* 136 134* 138 139 K 4.7 4.1 3.8 3.5 3.6 3.2* 3.5 CL 105 103 101 -- 106 111* 113* CO2 26 23 25 -- 25 22 BUN 11 -- -- -- -- -- 9* CREATININE 0.66 0.61 0.62 -- -- -- 0.55 CALCIUM 8.8 -- -- -- -- -- -- CALCCA 9.1 -- -- -- -- -- -- CAION -- -- -- 1.13 -- -- -- MG -- -- -- -- -- -- 1.6* PHOS -- -- -- -- -- -- 2.7 Coags: Recent Labs 02/16/20 1204 02/17/20 0519 PROTIME 13.7* 13.9* INR 1.2* 1.2* PTT 28 26 LFT: No results for input(s): TBIL, ALKPHOS, AST, ALT, LIPASE, AMYLASE in the last 72 hours. ABG: NEUROIMAGING STUDIES: Personally reviewed. CT HEAD WO CONTRAST 02/12/2020 IMPRESSION: No acute abnormality. CT HEAD WO CONTRAST 02/14/2020 IMPRESSION: 1. Acute intra-axial hemorrhage left temporal and frontal lobes the approximately 5.8 by 3.5 by 4.8cm. Associated subarachnoid hemorrhage over the left hemisphere. 2. 2 mm [id number] midline shift. CTA HEAD NECK 02/14/2020 IMPRESSION No significant abnormality of the major intracranial or cervical arterial vasculature. Please referto dedicated CT venogram for findings of venous thrombosis and slight increase in intraparenchymal hemorrhage. CT HEAD VENOGRAM W CONTRAST 02/14/2020 IMPRESSION 1. Venous thrombosis in the left internal jugular vein, sigmoid and transverse sinus as well as thevein of Kristen. 2. Intraparenchymal hemorrhage related to the venous thrombosis has increased slightly from prior. ?? 3. Unchanged midline shift. No evidence of herniation. CT HEAD WO CONTRAST 02/15/2020 IMPRESSION 1. Unchanged size and mass effect of the intraparenchymal hemorrhages compared to [address] angiogram 8 hours prior. No evidence of herniation. 2. Venous thrombosis as above. CT HEAD WO CONTRAST 02/15/2020 IMPRESSION Interval increase in size of medial component of the parenchymal hematoma in the left temporal and parietal lobes, now with overall size measuring 6.9 x 5.0 x 4.4 cm. There is worsened rightward midline shift of 9 mm compared to [address] HEAD WO CONTRAST 02/16/2020 Increasing area of hemorrhage and worsening midline shift; awaiting radiology interpretation. OTHER DIAGNOSTIC STUDIES: N/A ASSESSMENT: Ynes White is a 50 y.o. woman with a past medical history significant for anxiety/depression and tobacco use disorder who presented with headache and found to have a left cerebral venous thrombosis and resultant intraparenchymal hemorrhage in the left frontotemporal area. Her [employer] hormone replacement therapy (estradiol-norethindrone), family history of cancer, and active tobacco use may be contributing factors to underlying hypercoagulable state. No evidence of malignancy on CT chest/abdomen/pelvis. Exam declined and is now s/p left hemicraniectomy and hematoma evacuation. Needs to restart anticoagulation as soon as safe due to presence of clot and potential for decline. Workup for hype rcoagulability is also ongoing. RECOMMENDATIONS: Cerebral venous thrombosis , PE, DVT - q1h neuro checks - s/p left-sided craniectomy on 02/15 - Hematology consulted for hypercoagulable work up - f/u factor V leiden, cardiolipin, protein S and C, lupus anticoagulant cascade, and beta 2 glycoprotein - DVT present in left upper extremity - echo completed; no thrombus, no evidence of R heart strain - CT chest/abdomen/pelvis showing acute pulmonary embolism - Ophthalmology now signed off - Receiving nicardipine gtt, labetalol for BP control - Morphine 2 mg q2h PRN for pain control - PT/OT/RATING CLERK evaluation when able - Need to resume heparin as soon as possible - Will likely need IVC filter Anxiety/Depression: known prior history - Obtain records from PCP regarding medication regimen; have been having difficulty obtaining theserecords so could reach out to family again moving forward. Tobacco use disorder - Nicotine patch Cecelia Rosario DO Department of Neurology, PGY3 Pager #[phone] (#[phone] on nights and weekends) 02/17/2020 7:21 Attestation statement: I saw and examined the patient with the resident on 02/17/2020. I agree withthe findings and plan of care documented in the resident's note. Her exam is much improved. Pupils are equal and reactive, vigorous movements of the right arm and to a lesser extent the right leg as well as good and vigorous movement of her left side. Would favor IVC filter at this point in time and consider starting AC JAVID irrespective of repeat CTV. Michelet Paz MD MSc * Ashleigh Patel MD - 02/17/2020 0706 EDT Neurosurgery Progress Note Problems/ Left transverse venous sinus thrombosis with intracerebral hemorrhage Midline Shift Brain compression Encephalopathy Procedures/ Left sided craniectomy and hematoma evacuation (Penar, 02/16/20) Passed SBT for 1 hour DVT scan: acute deep and superficial vein thrombosis in the left upper extremity Subjective/ Intubated, sedation Objective/ BP 122/68 Pulse 95 Temp 37.5 ??C (99.5 ??F) (Oral) Resp 14 Ht 170.2 cm (67) Wt 98.4 kg (217 lb) SpO2 95% BMI 33.99 kg/m?? GCS 8T (E3,V1T,M4) Intubated and sedated Eyes closed open to name, withdraw to painful stimuli Pupils equally round and reactive 3 to 2 bilaterally Localizing with left upper extremity Minimal movement of right upper to noxious Withdrawal or bilateral lower extremities, right more briskly than left Incision C/D/I, flap soft and sunken Assessment/ 50F with tobacco use, cerebral venous thrombosis and intraparenchymal hemorrhage in left frontotemporal area. Admitted to Neuro for close monitoring and heparin drip. Initial head CT at therapeutic dose was stable, but repeat head CT 02/16 demonstrating enlarged hemorrhage with coinciding decreased right sided movement and subsequent dilation of left pupil prompting hypertonic bolus, heparin revers al, mannitol, and OR for emergent Left sided craniectomy and hematoma evacuation. Patient remains intubated post-op. Neuro exam unchanged. Now with acute deep and superficial vein thrombosis in the left upper extremity. Plan/ Q1 hour pupil checks, q4 neuro exams SBP <140 Remain intubated, sedated for now Hold any anticoagulation at this point Repeat CTV today assess for clot propagation Possible neuro IR intervention if further propagation of clot Appreciate hematology recommendations Appreciate SICU assistance ASHLEIGH PATEL MD 02/17/2020 7:06 Page [phone] with questions Cosigned by Claus Piña MD at 02/17/2020 9:47 EDT Associated attestation - Claus Piña MD - 02/17/2020 0924 EDT Attestation statement: I saw and examined the patient with the resident on 02/17/2020. I agree with the findings and plan of care documented in the resident's note. POD 1 3.24.20 L FTP craniectomy, ICH removal, venous thrombosis Problem: cerebral edema Arouses and tries to open eyes to voice. Pupils equal and reactive. NFC but purposeful and spontaneous on left. No response on right, but does seem to react to pinch in UE and LE. Scalp flap is full and not soft, Postop CT shows good clot removal, less mass effect. Subgaleal drain putting out a large amount, likely CSF. Plan: CTV today, consider IR treatment if there is extension of intravenous clot. We will also consider proph doses of heparin (sub-therapeutic). She does have an UE DVT and a subsegmental PE. Hold on ICP monitoring for now. Claus Piña MD FACS 02/17/2020 at 9:44 * Aníbal Dyer, RT - 02/17/2020 0544 EDT Respiratory Progress Note Indications for Respiratory therapy: Intubated. Vent and Airway management. Post Op crani Data Vitals: Heart Rate: 81 BPM, Resp: 15, SpO2: 97 % FIO2/O2 Device: , , O2 Device: Intubated, FIO2 %: 21 % RT Orders: Vent - VC AC Rate 14 VT 490 PEEP 5 Action/Events Patient rested overnight on vent with no adverse reaction noted. Suctioned minimally for white to clear secretions. Patient successfully completed one hour wean trial on PSV +5/5 cmH20. Response/Results Wean vent as tolerated with hopes to extubate soon. ANÍBAL DYER, RT 02/17/20 * Milli Persaud RN - 02/16/20202052 EDT Cortrack Feeding Tube Placement Procedure Note Title of Procedure: Cortrack Feeding Tube Placement Date Performed: 02/16/2020 Time Performed: 2029 Performed by: ALFREDO Clifford Indications and/or Provisional Diagnosis: Condition: The condition of the patient was Critical Consent: The patient/surrogate has consented after being informed of the risks, benefits and alternatives Ordered By: Nieves Tuttle Time Out: A time-out was completed prior to procedure verifying correct patient, procedure, site, positioning, and special equipment if applicable. Type of Anesthesia or Sedation: Phenylephrine-lidocaine 0.25%-3% topical solution Procedure Technique/Description: Performed tube placement using the Cortrak EAS system2 X-Ray Confirmation: Yes Final Tube Position: Small bowel Exposed Catheter Length (cm): 30 Complications: None + auscultation prior to XR 70cm at tirso PERSAUD RN 02/16/2020 20:53 * Erica Tucker RT - 02/16/2020 1724 EDT Respiratory Care Transport Note Pre-Transport: ETT suctioned, emergency equipment placed in bed, and monitoring of SpO2 and HR established, patient placed on transport vent on AC with 10% increase in FiO2. Patient noted to be stable on these settings. Transport: Patient transported to NH without incident on transport ventilator. SATs remained 98 throughout transport and no critical values noted for HR or BP. Post-Transport: Follow up vent check was performed after returning the patient to her original settings in SICU. No significant changes in BS, PIP or SATs were noted. * Trenton Marlow MD - 02/16/2020 1610 EDT Neurosurgery Post Procedure Note Problems/ Left transverse venous sinus thrombosis with intracerebral hemorrhage Midline Shift Brain compression Encephalopathy Procedures/ Left sided craniectomy and hematoma evacuation (Penva, 02/16/20) Subjective/ Intubated, sedation held x 20 minutes Objective/ BP 119/71 Pulse 95 Temp 37 ??C (98.6 ??F) (Oral) Resp 13 Ht 170.2 cm (67) Wt 98.4 kg (217 lb) SpO2 100% BMI 33.99 kg/m?? GCS 7T (E1,V1T,M5) Intubated, sedation held x 15-20 minutes Eyes closed, not opening to noxious Pupils equally round and reactive 3 to 2 bilaterally Localizing with left upper extremity Minimal movement of right upper to noxious Withdrawal or bilateral lower extremities, right more briskly than left Incision C/D/I, flap soft and sunken Assessment/ 50F with tobacco use, cerebral venous thrombosis and intraparenchymal hemorrhage in left frontotemporal area. Admitted to Neuro for close monitoring and heparin drip. Initial head CT at therapeutic dose was stable, but repeat head CT this AM demonstrating enlarged hemorrhage with coinciding decreased right sided movement and subsequent dilation of left pupil prompting hypertonic bolus, heparin rev ersal, mannitol, and OR for emergent Left sided craniectomy and hematoma evacuation. Patient remains intubated post-op. Plan/ Q1 hour pupil checks, q4 neuro exams SBP <140 Remain intubated, sedated for now Hold any anticoagulation at this point Non-contrast head CT this evening, repeat CTV tomorrow/ to assess for clot propagation Possible neuro IR intervention if further propagation of clot Appreciate hematology recommendations - LE DVT ultrasound, plan for IVC filter if positive Appreciate SICU assistance Trenton Marlow MD Neurosurgery resident 02/16/2020 16:10 Page [phone] with questions * Sandra Bautista II RT - 02/16/2020 1455 EDT Respiratory Progress Note Indications for Respiratory therapy: Intubated. Vent and Airway management. Data Vitals: Heart Rate: 84 BPM, Resp: 14, SpO2: 100 % FIO2/O2 Device: , , O2 Device: Intubated, FIO2 %: (S) 40 % RT Orders: VC AC Rate 14 VT 490 PEEP 5 Action/Events Respiratory events; Returned from the OR intubated. #7.5 ETT @ 22. Response/Results Weaning and Toleration of treatments; Continue to monitor and assess SANDRA BAUTISTA II RT 02/16/20 * Sandra Araujo OT - 02/16/2020 1453 EDT [facility] Rehabilitation Therapy [facility] Therapy [facility] Occupational Therapy Contact Note Date of Service: 02/16/2020 Pt unable to be seen today secondary to OR. Per NS, pt is intubated/sedated. Will continue to follow and see as approrpriate Sandra Araujo OT, 02/16/2020, 14:53 * Tigre Galindo, PT - 02/16/2020 1236 EDT [facility] Rehabilitation Therapy [facility] Therapy [facility] Physical Therapy Contact Note Date of Service: 02/16/2020 Patient going to OR today. PT will resume post-op as indicated and PT assessment ongoing. Still recommend Acute rehab placement when medically ready. TIGRE GALINDO, PT 02/16/2020 12:39 [id number] * Isabell Lora CCC-RATING CLERK - 02/16/2020 1049 EDT Speech-Language Pathology Contact Note Attempted to see pt today to provide further diagnostic/therapeutic intervention for dysphagia and communication. Pt going to OR today, unable to see her at this time. Pt should be NPO after her surgery until her swallowing skills have been re evaluated by RATING CLERK. Isabell Lora CCC-RATING CLERK #[id number] 02/16/2020 RATING CLERK Department Pager #[phone] * Trish Dumas RN - 02/16/2020 1045 EDT Case Management Contact Note: Attempted to meet patient, however she was being taken to the OR. Will f/u tomorrow. Trish Dumas RN, BSN #[id number] * Adali Heredia RD - 02/16/2020 1006 EDT BRIEF NOTE: Per RATING CLERK: small amount of pureed food for pleasure only Diet order:npo BMI 33.9 MEDS: asp, cardene LABS: na 133 K:nl BS 107 A1C 5.4 04/12 vit D= 31 50 yo female s/p ICH. Hx smoking. Obese per BMI. Will need to consider TF support if unable to passSLP eval in the next few days. Please monitor lytes, mg, and phos as she is at risk for refeeding syndrome. Will monitor Adali Heredia RD * Michelet Paz MD - 02/16/[address] [facility] NEUROLOGY PROGRESS NOTE PATIENT NAME: Ynes White PCP: Alejandrina Carrillo DATE OF ADMISSION: 02/14/2020 DATE OF SERVICE: 02/16/2020 CODE STATUS: Full Code PRIMARY DIAGNOSIS: Cerebral venous thrombosis with resultant left frontotemporal hemorrhage OVERNIGHT EVENTS/SUBJECTIVE: - CT head showing worsening hemorrhage, midline shift Ynes isn't able to participate much in her exam today. She says yeah to every question. MEDICATIONS: Current Facility-Administered Medications: acetaminophen (TYLENOL) tablet 650 mg oral Q4H PRN dextrose 50 % solution 12.5 g intravenous PRN glucagon injection 1 mg intramuscular PRN insulin aspart U-100 (NOVOLOG FLEXPEN) injection subcutaneous Q6H iohexoL (OMNIPAQUE 350) solution 100 mL intravenous Once in imaging morphine injection 2 mg intravenous Q2H PRN niCARdipine (CARDENE) 25 mg in sodium chloride (NS) 0.9 % 250 mL peripheral infusion intravenous CONTINUOUS nicotine (NICODERM CQ) 7 mg/24 hr patch 1 Patch transdermal Q24H ondansetron (PF) (ZOFRAN) 4 mg/2 mL injection prochlorperazine edisylate (COMPAZINE) 10 mg/2 mL (5 mg/mL) injection prochlorperazine edisylate (COMPAZINE) injection 10 mg intravenous Q6H PRN protamine injection 40 mg intravenous Now REVIEW OF SYSTEMS: Limited due to mental status. General Exam: General appearance: lethargic/difficulty maintaining alertness Skin: Skin color, temperature, turgor normal. No rashes or lesions HEENT: NC/AT Lungs: Breathing comfortably on room air Extremities: all extremities warm. Neurological Exam: Mental Status/Language: Difficulty maintaining alertness. Will incorrectly say yeah to all questions. Does not follow any commands. Cranial Nerves: Pupils equal, round, and briskly reactive to light. Gaze is midline. Face appears symmetric. Hearing is grossly intact to voice. Motor: Normal muscle bulk and supple tone. No abnormal spontaneous movements. Able to maintain leftarm and leg anti-gravity once they are lifted up for her. Does not lift right arm or leg against gravity spontaneously; when her arm and leg are lifted then released, she does not make an attempt to hold against gravity. Reflexes: Plantar response downgoing on the left; mute on the right. Sensation: Withdraws from pain in the right upper and lower extremities. Cerebellar: Not assessed given altered mentation and inability to follow complex commands. Gait: Deferred. On later exam during rounds, patient less responsive. Does not say yeah to any other questions,but did mumble once in response to being asked her name. Pupils asymmetric with left > right andboth reactive to direct light, though the left less so. Babinski present on the right. LABORATORY: CBC: Recent Labs 02/14/20174702/15/205 02/16/20 0308 WBC 6.92 9.07 9.67 RBC 4.47 4.84 4.22 HGB 15.1 15.9* 14.1 HCT 44.8* 47.3* 40.8 MCV 100* 98 97 MCH 33.8* 32.9 33.4* MCHC 33.7 33.6 34.6 PLT 167 158 154 NEUTROABS 5.03 -- -- BMP: Recent Labs 02/14/20174702/15/205 02/16/20 0308 NA 135* 136 133* K 4.7 4.1 3.8 CL 105 103 101 CO2 26 23 25 BUN 11 -- -- CREATININE 0.66 0.61 0.62 CALCIUM 8.8 -- -- CALCCA 9.1 -- -- Coags: No results for input(s): PROTIME, INR, PTT in the last 72 hours. LFT: No results for input(s): TBIL, ALKPHOS, AST, ALT, LIPASE, AMYLASE in the last 72 hours. ABG: NEUROIMAGING STUDIES: Personally reviewed. CT HEAD WO CONTRAST 02/12/2020 IMPRESSION: No acute abnormality. CT HEAD WO CONTRAST 02/14/2020 IMPRESSION: 1. Acute intra-axial hemorrhage left temporal and frontal lobes the approximately 5.8 by 3.5 by 4.8cm. Associated subarachnoid hemorrhage over the left hemisphere. 2. 2 mm [id number] midline shift. CTA HEAD NECK 02/14/2020 IMPRESSION No significant abnormality of the major intracranial or cervical arterial vasculature. Please referto dedicated CT venogram for findings of venous thrombosis and slight increase in intraparenchymal hemorrhage. CT HEAD VENOGRAM W CONTRAST 02/14/2020 IMPRESSION 1. Venous thrombosis in the left internal jugular vein, sigmoid and transverse sinus as well as thevein of Kristen. 2. Intraparenchymal hemorrhage related to the venous thrombosis has increased slightly from prior. ?? 3. Unchanged midline shift. No evidence of herniation. CT HEAD WO CONTRAST 02/15/2020 IMPRESSION 1. Unchanged size and mass effect of the intraparenchymal hemorrhages compared to [address] angiogram 8 hours prior. No evidence of herniation. 2. Venous thrombosis as above. CT HEAD WO CONTRAST 02/15/2020 IMPRESSION Interval increase in size of medial component of the parenchymal hematoma in the left temporal and parietal lobes, now with overall size measuring 6.9 x 5.0 x 4.4 cm. There is worsened rightward midline shift of 9 mm compared to [address] HEAD WO CONTRAST 02/16/2020 Increasing area of hemorrhage and worsening midline shift; awaiting radiology interpretation. OTHER DIAGNOSTIC STUDIES: N/A ASSESSMENT: Ynes White is a 50 y.o. woman with a past medical history significant for anxiety/depression and tobacco use disorder who presented with headache and found to have a left cerebral venous thrombosis and resultant intraparenchymal hemorrhage in the left frontotemporal area. Her [employer] hormone replacement therapy (estradiol-norethindrone), family history of cancer, and active tobacco use may be contributing factors to underlying hypercoagulable state. No evidence of malignancy on CT chest/abdomen/pelvis. Exam declining with difficulty maintaining alertness, worsening language, and less use ofthe right side. Workup for hypercoagulability is also ongoing. PLAN: Cerebral venous thrombosis - q1h neuro checks - Discontinue heparin gtt, administer protamine now - 500cc of 3% sodium chloride now - To OR today for hemicraniectomy and probable clot retrieval by IR - Hematology consulted for hypercoagulable work up - f/u factor V leiden, cardiolipin, protein S and C, lupus anticoagulant cascade, and beta 2 glycoprotein - f/u doppler US of upper and lower extremities - echo completed; no thrombus, no evidence of R heart strain - CT chest/abdomen/pelvis showing acute pulmonary embolism - Hold off on ophthalmology evaluation today due to patient going urgently to OR - Receiving nicardipine gtt, labetalol for BP control - Morphine 2 mg q2h PRN for pain control - RATING CLERK evaluation - Unsafe for swallow evaluation; maintain NPO - PT/OT evaluation Pulmonary embolism: - Hold anticoagulation for now due to need for surgery. - Continue to monitor respiratory status. - Start DVT prophylaxis then anticoagulation as soon as safe from a surgical standpoint - Discussed IVC filter with hematology, they will get back to us Anxiety/Depression: known prior history - obtain records from PCP regarding medication regimen Tobacco use disorder - nicotine patch Diet: NPO VTE ppx: holding now for surgery Disposition: uncertain at this time Staffed with neurology attending Dr. Paz on morning rounds 02/16/20 Cecelia Rosario DO Department of Neurology, PGY3 Pager #[phone] (#[phone] on nights and weekends) 02/16/2020 8:23 Attestation statement: I saw and examined the patient with the resident on 02/16/2020. I agree withthe findings and plan of care documented in the resident's note. Patient exam had changed for the worse with increased right weakness and possibly worse aphasia, head CT with more mass effect so heparin gtt was stopped and reversed, given HS and then with new pupil changes and overall decreasing responsiveness was given additional mannitol and taken to OR for decompression. IR to evaluate need for intervention while in OR as well. Other issue is of her PE. Awaiting dopplers to make decision about an IVC filter. ?? Michelet Paz MD MSc * Trenton Marlow MD - 02/16/2020 0733 EDT Neurosurgery Progress Note Problems/ -cerebral venous thrombosis with a resultant left frontotemporal hemorrhage Procedures/ -none 24/ - Neuro IR consulted, recommending no intervention unless clinically deteriorates on anticoagulation -Therapeutic heparin level achieved -On nicardipine drip for goal SBP<140 -Repeat head CT this AM with enlarged Left sided hemorrhage -Na 133 (136) -Temp: [37 ??C (98.6 ??F)-38.1 ??C (100.5 ??F)] () Subjective/ -Minimally verbal Objective/ BP 140/66 Pulse 95 Temp 37 ??C (98.6 ??F) (Oral) Resp 26 Ht 170.2 cm (67) Wt 98.4 kg (217 lb) SpO2 96% BMI 33.99 kg/m?? Alert Aphasic, minimally verbal, unclear responses Follows commands on left side after demonstration; not following on the right Extraocular movements intact Pupils equal, round, reactive Face symmetric Tongue midline Right upper and lower extremities with less spontaneous movement, withdraws but not briskly Labs/ CBC: Recent Labs 02/14/20174702/15/205 02/16/20 0308 WBC 6.92 9.07 9.67 RBC 4.47 4.84 4.22 HGB 15.1 15.9* 14.1 HCT 44.8* 47.3* 40.8 MCV 100* 98 97 MCH 33.8* 32.9 33.4* MCHC 33.7 33.6 34.6 PLT 167 158 154 NEUTROABS 5.03 -- -- BMP: Recent Labs 02/14/20174702/15/2031402/16/20 0308 NA 135* 136 133* K 4.7 4.1 3.8 CL 105 103 101 CO2 26 23 25 BUN 11 -- -- CREATININE 0.66 0.61 0.62 CALCIUM 8.8 -- -- CALCCA 9.1 -- -- Cardiac Markers: Recent Labs 02/14/202052 TROPONINI <0.034 Hemoglobin A1c: Recent Labs 02/14/201747 HGBA1C 5.4 Assessment/ 50F with tobacco use, cerebral venous thrombosis and intraparenchymal hemorrhage in left frontotemporal area. Admitted to Neuro for close monitoring and heparin drip. Initial head CT at therapeutic dose was stable, but repeat head CT this AM demonstrating enlarged hemorrhage with coinciding decreased right sided movement this AM. Plan/ -ICU -q1h neuro checks and vitals -Stop Heparin ggt now, protamine for reversal now (relayed to primary team) -500cc 3% bolus now x1, goal Na >140 -Nicardipine drip to maintain systolic blood pressures below 140 -Repeat CT if change in neuro status -Will continue to follow Trenton Marlow MD 02/16/2020 7:33 Page 0259 with questions Cosigned by Claus Piña MD at 02/16/2020 9:02 EDT Associated attestation - Claus Piña MD - 02/16/2020 0902 EDT Attestation statement: I saw and examined the patient with the resident on 02/16/2020. I agree with the findings and plan of care documented in the resident's note. Pt examined and found to have weakness on right in UE and LE. Does not withdraw to pinch on that side. Will open eyes and FC to show fingers. Pupils reactive. CT shows a significant increase in the deeper portion of the parietal ICH, with increased mass effect. Given 3% saline, heparin stopped / reversed. Discussed with her brother by telephone. Proposed a craniectomy with attempt at parietal clot removal. Hemorrhage is diffuse, consistent with venous infarcts, and all areas of ICH need not be addressed. Discussed risks of hemorrhage and edema and neurologic decline. He readily agrees to surgery. Heis not allowed to come into the hospital due to the COVID crisis. Claus Piña MD FACS 02/16/2020 at 8:57 * Matteo Carlin RN - 02/15/2020 1519 EDT Acute Inpatient Rehabilitation Rehab Referral Review Patient Review: EMR reviewed. Admitted with Central venous thrombosis with left frontotemporal hemorrhage Referral Status and Assessment: Medical work up in process Comments: Therapy recommending AR pending clinical progression Follow-up Plan: Will continue to follow intermittently MATTEO CARLIN RN 02/15/2020 15:19 * Isabell Lora CCC-RATING CLERK - 02/15/2020 1458 EDT Speech-Language Pathology Initial Communication and Swallow Evaluation Note RATING CLERK Diagnosis: Aphasia and Dysphagia, oropharyngeal phase Medical Diagnosis: Cerebral venous thrombosis and resultant intraparenchymal hemorrhage in the leftfrontotemporal area Date of Onset: 02/14/20 Date of Referral: 02/14/20 Date of Service: 02/15/2020 Start Time: 2:30 Total Therapy minutes: 15 minutes Swallow Evaluation; 10 minutes Communication evaluation - Evaluation limited due to pt's reduced sustained attention at this time. SUBJECTIVE: Here Pt's response when asked where she lives. OBJECTIVE: History: Per Dr. Paz' note dated 02/15/20, Ynes White is a 50 y.o. female with a PMHx significant for anxiety/depression and tobacco use disorder who presents with a cerebral venous thrombosis and resultant intraparenchymal hemorrhage in the left frontotemporal area. Her CARTON MAKER medicationsinclude hormone replacement therapy (estradiol-norethindrone), family history of cancer, and activetobacco use may be contributing factors to underlying hypercoagulable state. Neurologically unchanged while on heparin gtt, hemodynamics stable off of nicardipine. Hematology consulted for further work up of hypercoagulable state. Ophthalmology consulted to assess for papilledema in setting of cerebral venous thrombosis. Past Medical History: History reviewed. No pertinent past medical history. Current Facility-Administered Medications: dextrose 50 % solution 12.5 g intravenous PRN glucagon injection 1 mg intramuscular PRN heparin in 1/2 NS 25,000 unit/250 mL infusion intravenous CONTINUOUS insulin aspart U-100 (NOVOLOG FLEXPEN) injection subcutaneous Q6H iohexoL (OMNIPAQUE 350) solution 100 mL intravenous Once in imaging morphine injection 2 mg intravenous EVERY 2 HOURS nicotine (NICODERM CQ) 7 mg/24 hr patch 1 Patch transdermal Q24H ondansetron (PF) (ZOFRAN) 4 mg/2 mL injection prochlorperazine edisylate (COMPAZINE) 10 mg/2 mL (5 mg/mL) injection prochlorperazine edisylate (COMPAZINE) injection 10 mg intravenous Q6H PRN Current Evaluation: Informal measures were utilized to evaluate current speech-language/cognitive-linguistic function. Behavior: During evaluation today, patient presented as sleepy and disengaged. Speech-Language Function: Auditory Comprehension: Commands: simple one step given max verbal and physical cues 1/3 Personal questions 0/4 Liam-Motor Evaluation/Motor Speech: Minimal speech output heard at this time. Voice: Breathy with reduced vocal intensity Verbal Expression: Confrontation Naming: Pt unable to do this at this time. She shook her head nowhen asked what items presented were called Pt shook her head no when orientation questions were asked. Reading Comprehension: Not formally evaluated. Written Expression: Not formally evaluated. Augmentative/Alternative Communication: Patient might be appropriate for diagnostic probes with light-tech augmentative/alternative communication strategies. TBD Cognitive-Linguistic: Unable to formally evaluate secondary to language deficits. Clinical Swallow Evaluation: Patient/Family: Patient consented to completing the clinical bedside swallow exam. Current Diet: NPO Diet prior to admission: Pt unable to state but given her age suspect she was eating a regular dietwith thin liquids. Current Status: Cognitive Status: Patient presented with aphasia and dysphagia during evaluation. Pt quite sleepy at this time. Respiratory Status: Respiratory status was judged to be WFL to support oral feeding. Oral Peripheral Motor Exam: Pt was unable to participate in formal oral peripheral examination. Pt.'s oral motor skills were informally assessed during trials of PO intake. Face: Face was symmetrical at rest. Lips: Adequate lip closure around spoon and straw Tongue: Appears moist, pt did not protrude tongue when asked and given a model at this time. Velum: Unable to view during the evaluation. Dentition: Adequate dentition. Pt has her own teeth. Laryngeal Excursion: Within functional limits with anterior tipping upon palpation. Speech Intelligibility: Unable to fully evaluate given limited verbalizations heard today. Vocal Quality: Patient presents with a breathy voice with reduced vocal intensity. Cough: Patient presents with a weak, not effective cough. Positioning: Seen at bedside for evaluation. Consistencies Tested: Patient was assessed with thin liquids and puree foods. Solid food textures were not deemed safe atthis time given pt's reduced sustained attention. Limited PO presented at this time given pt's fatigue. Methods of Delivery: All items were administered by RATING CLERK using a spoon and straw. Oral Phase Findings: Oral phase of swallowing is within functional limits. Patient presents with adequate oral containment and appropriate bolus transport for consistencies tested. Pharyngeal Phase: With pureed food and small sips of thin water via a spoon and straw pharyngeal phase of swallowing is within functional limits. Patient presents with a timely swallow response and adequate hyo-laryngeal excursion via palpation. No overt signs/ symptoms of laryngeal penetration/ aspiration were identified. When pt took a larger sip of thin water via a straw at a faster rate she presented with pharyngeal phase deficits as suggested by signs/symptoms suggestive of laryngeal penetration/aspiration characterized by coughing after the swallow. Esophageal Phase: Patient does not have GERD under her PMH or a PPI listed under her medication list. Compensatory Strategies: The following compensatory swallow strategies were attempted during today's evaluation: Compensatory strategies of diet modification and implementation of aspiration precautions and safe swallowing strategies outlined below appear effective in decreasing risk of aspiration. PATIENT/FAMILY EDUCATION: Patient/Family Education: Topic: Swallow and Communication Patient education and training was initiated today including the role of Speech- Language Pathology. Reviewed recommendations for PO intake Learner: patient Method of Education: Verbal Barriers to Learning/Education: patient's inability to learn/carry over information at this time given her aphasia and current medical status Patient: was not able to verbalize understanding of information and needs further instruction and education Family: Patient's family was not present at the time of this evaluation. Patient/Family Goals: Pt unable to state at this tme. Assessment /CLINICAL IMPRESSIONS: is a female 50 y.o. 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 Pt very tired with reduced sustained attention at this time. Evaluations were somewhat limited today given this. The patient presents with functioning consistent with: Receptive and Expressive Aphasia. Patient iscurrently dependent on others to help her communicate her basic wants and needs and direct her medical care. Given patient's age, independence prior to admission, and social/occupational demands, shewould benefit from RATING CLERK intervention. Based on the patient's premorbid level of functioning, medicaldiagnosis, comorbidities and patient/family support, the patient's prognosis is deferred at this time and will best be determined over the next several days. A clinical swallow evaluation was completed today by Speech Language Pathology secondary to concerns for oropharyngeal dysphagia, and risk of laryngeal penetration/aspiration. As above, evaluation was limited at this time given pt's fatigue and reduced attention. With limited textures and trials presented at this time, patient currently presents with a mild-moderate pharyngeal phase dysphagia characterized by coughing after the swallow with larger, more rapid sips of thin water. When sip size and rate of intake was monitored pt with no overt s/s of penetration/aspiration. Also with small bites of pureed food, pt with no overt s/s of penetration/aspiration. Etiology of dysphagia is nuerogenic. Patient remains at moderate to high risk of aspiration at thistime. Compensatory strategies of diet modification and implementation of aspiration precautions andsafe swallowing strategies outlined below appear effective in decreasing risk of aspiration. Prognosis for improvement in swallow function is judged to be good at this time secondary to expected ongoing recovery. Anticipate patient will tolerate small amounts of pureed food and sips of thin liquidsfor pleasure over the next 24 hours. RATING CLERK will return to continue evaluation. Functional Communication Measures ([place] [employer], 2002). The Functional Communication Measures (FCM???s) are a series of 7 point rating scales, ranging fromleast functional (Level 1) to most functional (Level 7). They have been developed by [employer] to describe different aspects of patient???s functional communication and swallowing abilities over the course of RATING CLERK intervention. Swallowing Level 3: Alternative method of feeding required as individual takes less than 50% of nutrition and hydration by mouth, and/or swallowing is safe with consistent use of moderate cues to usecompensatory strategies and/or requires maximum diet restriction. Spoken Language Expression Level 2: The individual attempts to speak, although few attempts are accurate or appropriate. The communication partner must assume responsibility for structuring the communication exchange, and with consistent and maximal cueing, the individual can only occasionally produce automatic and/or imitative words and phrases that are rarely meaningful in context. Spoken Language Comprehension Level 2: With consistent, maximal cues, the individual is able to follow simple directions, respond to simple yes/no questions in context, and respond to simple words orphrases related to personal needs. GOALS: Barbering Instructor Goals: Projected Functional Communication Measures at discharge: Swallowing Level 5: Swallowing is safe with minimal diet restriction and/or occasionally requires minimal cueing to use compensatory strategies. The individual may occasionally self-cue. All nutrition and hydration needs are met by mouth at mealtime. Spoken Language Comprehension Level 3: Individual usually responds accurately to simple yes/no questions. The individual is able to follow simple directions out of context, although moderate cueing is consistently needed. Accurate comprehension of more complex directions/messages is infrequent. Spoken Language Expression Level 3: The communication partner must assume responsibility for structuring the communication exchange, and with consistent and moderate cueing, the individual can produce words and phrases that are appropriate and meaningful in context. Short Term Goals: The patient will complete the RATING CLERK evaluation in the areas of: verbal expression, auditory comprehension, reading comprehension and written expression. Plan /RECOMMENDATIONS: Provide RATING CLERK services on a consult model of care while in the hospital. As a result of the dysphagia evaluation, the following recommendations are provided to maximize swallow function and to minimize risk of dysphagia and its ramifications: DIET: Impeccable oral care is essential in maintaining oral hygiene and minimizing harmful bacteria. Please allow small amounts of pureed food consistency for pleasure only when pt is alert and upright. Please allow small sips of water via cup or straw. Patient may require supplemental tube feeding to meet nutritional and hydration needs. TBD MEDICATIONS: Medication should be administered crushed if possible with pureed food. FEEDING/EATING STRATEGIES: Patient requires 100% supervision at meal time. When eating, patient should be upright at 90 degrees as tolerated. Patient should take small sips of thin liquid. Patient may use a straw when drinking liquids. Patient should eat/be fed at a slow pace. If feeding pt please wait and watch for pt to swallow prior to presenting next bite. Communication Strategies for Caregivers of Persons with Aphasia 1. Have a pen and paper ready when communicating. 2. Please present information slowly and simplify. Augment with drawings, diagrams, gestures and pointing. 3. Ask one question at a time. 4. Have only one person speak at a time. 5. Offer patient choices and give pt extra time to communicate her thoughts. 6. Turn off background noise and minimize distractions (eg. TV, being in a noisy environment) 7. Summarize understanding Referrals: Nutrition Services Discharge Plan: Suspect pt will benefit from an acute rehab stay. Isabell Lora CCC-RATING CLERK #[id number] 02/15/2020 RATING CLERK Department Pager #[phone] * Sandra Araujo OT - 02/15/2020 0815 EDT [facility] Occupational Therapy Contact Note Date of Service: 02/15/2020 OT referral received. Pt off the floor for a test, will f/u as able Sandra Araujo OT, 02/15/2020, 14:11 * Tigre Galindo, PT - 02/15/2020 4680 EDT [facility] Physical Therapy Initial Evaluation Note Date of Service: 02/15/2020 Reason for Referral: Evaluate and treat Diagnosis: Cerebral venous thrombosis>>> resulting in Acute intra-axial hemorrhage left temporal and frontal lobes with Associated subarachnoid hemorrhage over the left hemisphere Mobility Precautions Activity: Activity as tolerated, Ambulate SUBJECTIVE: Patient and Caregiver Goals: Patient unable to express goals Reporting Person Comment: Patient nods yes to out of bed to chair but speech garbled Pain Evaluation Pain Description: No pain reported during evaluation OBJECTIVE: PatientProfile: Patient is a 50 y.o. female admitted on 02/14/2020 secondary to Cerebral venous thrombosis [G08] Cerebral venous sinus thrombosis [G08] The patient lives at [address] [place] [address] History of Present Illness / Injury Current Illness / Injury: Per MD H&P note:Ynes White is a 50 y.o. female with a PMHx significant for smoking who presents with a cerebral venous thrombosis and resultant intraparenchymal hemorrhage in the left frontotemporal area. Her CARTON MAKER medications include hormone replacement therapy (estradiol- norethindrone), which may be a contributing factor. Will admit for close monitoring and anticoagulation. Safety Assessment / Living Environment Home environment: Apartment(Need to fully clarify) Home Equipment: Need to clarify Support Amount of Support: Need to clarify General Prior Level of Function Comment: Need to clarify Level of Assistance Throughout: Independent Basic Activities of Daily Living - General Basic Activities of Daily Living Comments: Presumed but need to clarify Level of Assistance Throughout: Independent Occupation Occupation Comment: Need to clarify Previous / Ongoing Services Services Comments: Need to clarify Medical/Surgical History: Current: Patient Active Problem List Diagnosis ??? Back pain ??? Chronic low back pain ??? Encounter for insertion or removal of intrauterine contraceptive device ??? Nicotine dependence, unspecified, uncomplicated ??? Perimenopausal ??? Post concussion syndrome ??? Tobacco abuse ??? Cerebral venous sinus thrombosis ??? Cerebral venous thrombosis Past: History reviewed. No pertinent past medical history. History reviewed. No pertinent surgical history. Medications Current Medications: Current medications reviewed Arousal, Attention, and Cognition: Lethargic, Difficulty staying awake, Inconsistent responses to stimuli, Delayed responses to stimuli Witter Coma Scale (> 24 months) Eye Opening: To speech Best Verbal: Confused Best Motor: Obeys commands Total Chela Coma Scale: 13 Orientation Comments: Disoriented to time and place Following Commands: Follows one step commands with increased time, Follows commands inconsistently Attention: Impaired sustained attention, Difficulty attending to directions Safety Awareness Safety Awareness: Demonstrates decreased safety awareness Cardiopulmonary: Activity Type: With bed to chair activity Vital Signs with Activity Comment: Heart rate 64, blood pressure 112/52, SPO2 95% on room air Auscultation - Evaluation Observations: Clear to auscultation bilaterally Integumentary/Anthropometric Characteristics: Skin Integrity Integrity: Intact(Alopecia noted at right scalp (nonsurgical)) - - Sitting Postures General Assessment: No problem noted Standing Posture General Assessment: No problems noted Range of Motion and Joint Integrity: Active Range of Motion: Within normal limits except as noted Upper Quarter: Left Upper Extremity: Right Upper Extremity: Cervical Spine: WNL Lower Quarter: Left Lower Extremity: Right Lower Extremity: Lumbar Spine: N/E Muscle Performance: Strength: Functional muscle test completed in: Supine with head of bed up 30 degrees Difficult to fully assess due to altered mental status All functionally > 3/5 except noted below: Upper Quarter: Left Upper Extremity: Right Upper Extremity: Cervical Spine: functionally 3/5 Lower Quarter: Left Lower Extremity: Right Lower Extremity: Lumbar Spine: N/E Sensation, Reflexes, and Nerve Integrity: Not evaluated due to altered mental status >>evaluation limited to bedside examination. See assessment. Neuromotor Function/Development: ?? Imaging CT venogram 02/14/20: IMPRESSION 1. Venous thrombosis in the left internal jugular vein, sigmoid and transverse sinus as well as theveins of [place] and Kristen. 2. Intraparenchymal hemorrhage has increased slightly from prior. Together, these findings are consistent with cerebral venous thrombosis. 3. Stable midline shift. No evidence of herniation. ?? CT angiogram head/neck 02/14/20: IMPRESSION No significant abnormality of the major intracranial or cervical arterial vasculature. Please referto dedicated CT venogram for findings of venous infarct and slight increase in intraparenchymal hemorrhage. ?? CT head 02/14/20: IMPRESSION: ?1. Acute intra-axial hemorrhage left temporal and frontal lobes ?the approximately 5.8 by 3.5 by 4.8 cm. Associated subarachnoid ?hemorrhage over the left hemisphere. ?2. 2 mm [id number] midline shift. Balance, Mobility, and Gait: Balance: Balance deficits observed Sitting Balance Static: With minimal contact assist of 1 Dynamic: Moderate assist of 1 Standing balance Static: Minimal contact assist of 1 Dynamic: Moderate assist of 1 Further testing warranted when patient better able to follow direction Mobility: Mobility evaluation as follows: All below with minimal/moderate assist of 1 and with maximal cues for sequencing and safety Rolling: Supine to sit: Sit to stand: Stand to sit: Bed to chair: Patient positioned in recliner chair, lower extremities elevated and chair alarm on, nurse aware Gait: Not evaluated due to evaluation limited to bedside examination. See assessment. Self-Care, Home Management, Work, and Leisure: Not evaluated Informed Consent: Informed Consent: The patient was unable to consent. Consent assumed by physicianorder. Interventions Completed Today: Time: 10:00 Total Treatment Time (minutes): 20 Timed Code Treatment Minutes: 0 Interventions Included: No interventions completed today The patient was left in the: recliner with the: Call farris in reach, Chair alarm on Patient Status at the End of the Therapy Session Comments: RN aware Patient/Family Education: Patient/Family Education Patient/Family Education: Not applicable(Patient confused and disoriented) Team Communication: Notification to, Notified: Nurse When: After therapy session, Prior to therapy session By: [id number] communication About Self-Care: Need to have patient use bedside commode as primary area for toileting Mobility and Gait: Mobility status, Recommendation for nursing to assist patient out of bed Recommended Number of Times Out of Bed to Chair: 3 times daily Recommended Type of Transfer for Out of Bed to Chair: Standing transfers Amount of Assistance Needed for Transfers: 1 assist Patient Status and Referrals: Patient status, Discharge needs, Referral recommendations and rationale, Referral made to inpatient rehabilitation admissions Assessment: Need for Services Physical Therapy is medically necessary to: Address body structure/function impairments, activity limitations, and participation restriction, Establish and progress mobility/exercise and provide recommendations for staff and safe discharge planning, Facilitate return to prior level of function, Improve safety and independence, Provide family/caregiver education to assist the patient Justification for Acute Rehab Justification for Acute Rehabilitation: The patient requires acute rehabilitation for multiple therapy disciplines and is expected to tolerate an intensity of 3 hours of therapy at a minimum of 5 days per week. Physical Therapy Diagnosis: This patient admitted for cerebral venous thrombosis resulting in Acuteintra-axial hemorrhage left temporal and frontal lobes approximately 5.8 by 3.5 by 4.8 cm. Associated subarachnoid hemorrhage over the left hemisphere. Patient now presents with a physical therapy diagnosis of Impaired functional mobility with overallimpaired strength/deconditioning, impaired motor planning, impaired cognition with aphasia, impaired functional balance, and impaired activity tolerance/aerobic capacity. Patient will continue to benefit from skilled physical therapy to address these impairments which are likely related to pt's co-morbidities and recent acute intra-axial hemorrhage left temporal and frontal lobes. Physical Therapy Prognosis: Based on patient's prior level of likely independent function, current AMS , and moderate need for physical assistance and no need for supplemental O2 during evaluation/intervention, anticipate ongoing functional gains with physical therapy in this setting. Patient is likely well below baseline level of function and is appropriate for skilled PT in this setting to address above impairments and plan for discharge. Anticipate patient will progress with therapy, but progress may be slow or limited by ongoing medical problems. Patient does not demonstrate adequate ability in mobility to return home yet. Patient required assistance with all mobility transitions. Current evidence indicates that early mobilization decreases risks of secondary complications related to immobility and improves systemic body function. Intervention by PT with knowledge of disease pathophysiology is indicated to establish and progress mobility and exercise. Based on patient's performance today anticipate patient will likely benefit from Acute rehab with multidisciplinary approach to maximize function and increase safety and independence with mobility prior to return home. Based on performance with therapy today, this patient is expected to be able to tolerate 3 hours ofmulti-disciplinary acute rehab therapy 5 days a week. PT assessment is ongoing. Consult to acute rehab has been made. Short-Term Goals: N/A Long-Term Goals: Time Frame: < 2-3 weeks Goal: Patient will be independent with all bed mobility Goal: Patient will require supervision or less with all functional transfers Goal: Patient will ambulate greater than 100 feet with least restrictive assistive device with supervision or less and without loss of balance Goal: Escobar balance score greater than 48 Goal: Gait speed greater than 0.5 m/s with or without assistive device Goal: Patient will negotiate stairs per home set up if indicated with minimal contact assist of 1 or less Goal: MSAS greater than 26 Goal: All above with heart rate greater than 60 but less than 130; SBP greater than 90 but less than 140; SPO2 greater than 92% on room air, all with activity PLAN: Necessity: Physical therapy will be provided by the physical therapist and/or physical therapist bilingual medical assistant when medically appropriate Frequency: Times per week Times Per Week: 2-3 in the setting Intensity: 15-45 minutes Duration: Duration of hospitalization Interventions May Include: Neuromuscular re-education, Self-care/home management, Therapeutic exercise, Gait training, Therapeutic activities Patient/Family Education: Discharge planning, Patient education, Equipment, Recommendations, Falls Prevention, Family/caregiver education, Role of physical therapy/occupational therapy/rehabilitation, Safety, Symptom management Further Data Further Data: Functional mobility assessment, Further evaluation with a standardized outcome measure, Initiate stairs as indicated, Cognitive screen Recommended Discharge Destination Recommended Discharge Destination: Home vs. acute rehabilitation Recommended Discharge Destination Comments: Pending clinical and functional progress and assistanceat home (likely acute rehab) Recommended Discharge Services Therapy Specific Services: Physical therapy Equipment Recommended Equipment Recommended: To be determined by next provider Equipment Recommended Comments: To be determined Equipment Dispensed Equipment Dispensed Comments: None at this time but will likely need a rolling walker assistive device Other Recommendations Other Recommended Services: Occupational therapy consult, workers' compensation commissioner/caser up consult, Speech language pathology consult, Inpatient rehabilitation consult Other Recommendations Comments: [facility] rehab consult initiated Pager: [phone] TIGRE GALINDO, PT 02/15/2020 14:53 * Tigre Galindo, PT - 02/15/2020 1253 EDT [facility] Rehabilitation Therapy Acute Therapy [facility] Physical Therapy Contact Note Date of Service: 02/15/2020 PT evaluation and intervention completed. Full note to follow. Recommend: OOB to chair TID with nursing assist of 1 Acute Rehab likely when medically cleared pending clinical progress. Based on performance with therapy today, this patient is expected to be able to tolerate 3 hours ofmulti-disciplinary acute rehab therapy 5 days a week. [facility] Consult was called in. PT assessment ongoing. TIGRE GALINDO, PT 02/15/2020 12:54 [id number] * Trish Dumas RN - 02/15/2020 1132 EDT Case Management Contact Note: Patient working with PT when I went by, I suspect she will need rehab. Full assessment to follow once patient available. Trish Dumas RN, BSN #[id number] * Ashleigh Patel MD - 02/15/2020 0812 EDT Neurosurgery Progress Note Problems/ -cerebral venous thrombosis with a resultant left frontotemporal hemorrhage Procedures/ -none 24/ - 1 g Keppra, fentanyl, zofran, and started on a nicardipine drip. She was hypertensive to SBP 170s -Admitted to Neuro -Heparin ggt for cerebral venous thrombosis -Repeat CTs demonstrate stable bleeds Subjective/ -Unable to meaningfully participate in interview Objective/ BP 108/54 Pulse 95 Temp 37.2 ??C (99 ??F) (Oral) Resp 21 Ht 170.2 cm (67.01) Wt 98.5 kg (217 lb 2.5 oz) SpO2 95% BMI 34.00 kg/m?? Alert Verbalizes normal cadance, word salad, no appropriate words Oriented to Yes, Janet Follows some commands Extraocular movements intact Pupils equal, round, reactive Face symmetric Tongue midline No dysmetria or dysnergia noted in bilateral upper extremities Moving LE/UE spontaneously, UE supervisor cellars/flexion/extension 5 Labs/ CBC: Recent Labs 02/14/20174702/15/205 WBC 6.92 9.07 RBC 4.47 4.84 HGB 15.1 15.9* HCT 44.8* 47.3* MCV 100* 98 MCH 33.8* 32.9 MCHC 33.7 33.6 PLT 167 158 NEUTROABS 5.03 -- BMP: Recent Labs 02/14/20174702/15/205 NA 135* 136 K 4.7 4.1 CL 105 103 CO2 26 23 BUN 11 -- CREATININE 0.66 0.61 CALCIUM 8.8 -- CALCCA 9.1 -- Cardiac Markers: Recent Labs 02/14/202052 TROPONINI <0.034 Hemoglobin A1c: Recent Labs 02/14/201747 HGBA1C 5.4 Assessment/ 50F with tobacco use, cerebral venous thrombosis and intraparenchymal hemorrhage in left frontotemporal area. Admitted to Neuro for close monitoring and heparin drip. CT at therapeutic dose was stable. Clinically stable, neuro exam significant for receptive and expressive aphasia. Plan/ -ICU -q1h neuro checks -Heparin ggt -Nicardipine drip to maintain systolic blood pressures below 140 -Repeat CT if change in neuro status -Care per Neuro team ASHLEIGH PATEL MD 02/15/2020 8:58 Page [phone] with questions Cosigned by Claus Piña MD at 02/15/2020 11:27 EDT * Michelet Paz MD - 02/15/[address] [facility] NEUROLOGY PROGRESS NOTE PATIENT NAME: Ynes White PCP: Alejandrina Carrillo DATE OF ADMISSION: 02/14/2020 DATE OF SERVICE: 02/15/2020 CODE STATUS: Full Code PRIMARY DIAGNOSIS: Cerebral venous thrombosis with resultant left frontotemporal hemorrhage OVERNIGHT EVENTS/SUBJECTIVE: -no acute events overnight -afebrile overnight -hemodynamically stable overnight, weaned off nicardipine gtt -started heparin gtt -repeat CT head overnight stable from prior MEDICATIONS: Current Facility-Administered Medications: dextrose 50 % solution 12.5 g intravenous PRN fentaNYL citrate (PF) injection 100 mcg intravenous Now glucagon injection 1 mg intramuscular PRN heparin in 11/26 NS 25,000 unit/250 mL infusion intravenous CONTINUOUS insulin aspart U-100 (NOVOLOG FLEXPEN) injection subcutaneous Q6H morphine injection 2 mg intravenous EVERY 2 HOURS niCARdipine (CARDENE) 25 mg in sodium chloride (NS) 0.9 % 250 mL peripheral infusion intravenous CONTINUOUS nicotine (NICODERM CQ) 7 mg/24 hr patch 1 Patch transdermal Q24H ondansetron (PF) (ZOFRAN) 4 mg/2 mL injection prochlorperazine edisylate (COMPAZINE) 10 mg/2 mL (5 mg/mL) injection prochlorperazine edisylate (COMPAZINE) injection 10 mg intravenous Q6H PRN REVIEW OF SYSTEMS: Complete 10-point ROS performed with pertinent positives as per subjective, others negative was not able to be obtained due to altered mentation and aphasia General Exam: General appearance: alert, cooperative, no distress Skin: Skin color, temperature, turgor normal. No rashes or lesions HEENT: NC/AT, no oral lesions. Lungs: Breathing comfortably on room air Extremities: all extremities warm. Mild lower extremity edema Neurological Exam: Mental Status/Language: Alert, not oriented to person, place, time, and reason for presentation however with further prompting is oriented to self, no dysarthria, expressive and receptive aphasia observed, able to follow very simple commands only Cranial Nerves: Visual fam full, pupils round and reactive, EOMI without nystagmus, tongue midline, palate elevates, shoulder shrug strong Motor: Normal muscle bulk and supple tone. No abnormal spontaneous movements. No rest or action tremor. Strength 5/5 bilateral UE and LE. Reflexes: DTRs 2/4 throughout, toes down bilaterally Sensation: Intact to light touch and pin prick symmetrically and bilaterally. Cerebellar: not assessed given altered mentation and inability to follow complex commands Gait: normal gait, normal tandem LABORATORY: CBC: Recent Labs 02/14/20 1748 02/15/20 0315 WBC 6.92 9.07 RBC 4.47 4.84 HGB 15.1 15.9* HCT 44.8* 47.3* MCV 100* 98 MCH 33.8* 32.9 MCHC 33.7 33.6 PLT 167 158 NEUTROABS 5.03 -- BMP: Recent Labs 02/14/20 1748 02/15/20 0315 NA 135* 136 K 4.7 4.1 CL 105 103 CO2 26 23 BUN 11 -- CREATININE 0.66 0.61 CALCIUM 8.8 -- CALCCA 9.1 -- Coags: No results for input(s): PROTIME, INR, PTT in the last 72 hours. LFT: No results for input(s): TBIL, ALKPHOS, AST, ALT, LIPASE, AMYLASE in the last 72 hours. ABG: NEUROIMAGING STUDIES: Personally reviewed. CT HEAD WO CONTRAST 02/12/2020 IMPRESSION: No acute abnormality. CT HEAD WO CONTRAST 02/14/2020 IMPRESSION: 1. Acute intra-axial hemorrhage left temporal and frontal lobes the approximately 5.8 by 3.5 by 4.8cm. Associated subarachnoid hemorrhage over the left hemisphere. 2. 2 mm [id number] midline shift. CTA HEAD NECK 02/14/2020 IMPRESSION No significant abnormality of the major intracranial or cervical arterial vasculature. Please referto dedicated CT venogram for findings of venous thrombosis and slight increase in intraparenchymal hemorrhage. CT HEAD VENOGRAM W CONTRAST 02/14/2020 IMPRESSION 1. Venous thrombosis in the left internal jugular vein, sigmoid and transverse sinus as well as thevein of Kristen. 2. Intraparenchymal hemorrhage related to the venous thrombosis has increased slightly from prior. ?? 3. Unchanged midline shift. No evidence of herniation. CT HEAD WO CONTRAST 02/15/2020 IMPRESSION 1. Unchanged size and mass effect of the intraparenchymal hemorrhages compared to [address] angiogram 8 hours prior. No evidence of herniation. 2. Venous thrombosis as above. OTHER DIAGNOSTIC STUDIES: ASSESSMENT: Ynes White is a 50 y.o. female with a PMHx significant for anxiety/depression and tobacco usedisorder who presents with a cerebral venous thrombosis and resultant intraparenchymal hemorrhage in the left frontotemporal area. Her [employer] medications include hormone replacement therapy (estradiol-no rethindrone), family history of cancer, and active tobacco use may be contributing factors to underlying hypercoagulable state. Neurologically unchanged while on heparin gtt, hemodynamics stable off of nicardipine. Hematology consulted for further work up of hypercoagulable state. Ophthalmology consulted to assess for papilledema in setting of cerebral venous thrombosis. PLAN: Cerebral venous thrombosis - q1h neuro checks - Interventional radiology aware, are following - Evaluated by neurosurgery, appreciate recommendations - Hematology consulted for hypercoagulable work up - f/u factor V leiden, cardiolipin, protein S and C - Ophthalmology consulted, appreciate recommendations - Low threshold to repeat CT head if declining neuro status - discontinue nicardipine drip for now, will restart if persistently SBP > 140 - Morphine 2 mg q2h for pain control - Heparin drip gtt, UFH at goal currently - RATING CLERK evaluation - Unsafe for swallow evaluation; maintain NPO - repeat CT head later today - CT chest/abdomen/pelvis for malignancy work up Anxiety/Depression: known prior history - obtain records from PCP regarding medication regimen Tobacco use disorder - nicotine patch Diet: NPO VTE ppx: heparin gtt Disposition: uncertain at this time Staffed with neurology attending Dr. Paz on morning rounds 02/15/20 Reno Castrejon MD 02/15/20 8:34 Attestation statement: I saw and examined the patient with the resident on 02/15/2020. I agree withthe findings and plan of care documented in the resident's note. Michelet Paz MD MSc * Wendie Isaacs RT - 02/14/2020 2656 EDT Images from the original note were not included. Respiratory Consult/Progress Note Indications for Respiratory therapy: ICU admission; hemorrhagic stroke Data Vitals: Heart Rate: 89 BPM, Resp: 16, SpO2: 98 % FIO2/O2 Device: , , O2 Device: None, FIO2 %: 21 % RT Orders: Q12 Eval Protocol Scoring: Bronchodilator/Inhalation Therapy Frequency Bronchodialator - Clinical Indications: No clinical indications Breath Sounds: Any abnormal BS decreased Response: No change / no treatment Pulse: <100 Resp Rate: <18 SOB: None Total Score: 1 Airway Clearance Therapy Frequency Airway Clearance - Clinical Indications: No clinical indications Breath Sounds: Clear / diminished Sputum: Small (tsp) / None Consistency: None Hyperinflation Therapy Frequency Hyperinflation - Clinical Indications: No clinical indications Breath Sounds: Other Surgery: No X-Ray / Atelectasis: No O2 Requirements: O2 at baseline Mobility Status: In bed Total: 4 Action/Events Respiratory events; Pt on RA with clear/diminished BS. She is unable to follow instructions to cough at this time. She is not in respiratory distress. Response/Results Weaning and Toleration of treatments; Q12 ICU eval RT RAÚL 02/14/20 documented in this encounter H&P Notes * Michelet Paz MD - 02/14/2020 9837 EDT Stroke History and Physical Service Date: 02/14/2020 Admit Date: 02/14/2020 16:23 Primary Care Provider: Alejandrina Carrillo Referring MD:Sherman Ponce MD Code Status: Full Code Palliative Care was not consulted because criteria not met. Chief Complaint: Cerebral venous thrombosis HPI Ynes White is a 50 y.o. female with a PMHx of smoking who presents as a transfer from [facility] with a cerebral venous thrombosis with a resultant left frontotemporal hemorrhage. She initially presented to [facility] after her ex- boyfriend found her confused and vomiting. She was given 1 g Keppra, fentanyl, zofran, and started on a nicardipine drip. She was hypertensive to SBP 170s. A CT head showed aleft temporoparietal bleed, and she was transferred to [facility] for further care. Upon arrival to [facility], a CT venogram showed a venous thrombosis in the left IJ, sigmoid, and transverse sinus along with a slightly expanded intracranial hemorrhage. On evaluation, she was alert and interactive but speech was nonsensical. I called her brother Caro to provide updates and gain further information. He expressed understanding of the plan. He is upset that he cannot visit Ynes and requested I update their sister as well. I asked if Ynes had a medical decision maker and he was not sure. I asked if he would be willing to be our main contact for updates and decisions, and he agreed to do this. We discussed code status and he thinks Ynes would want to be full code. Review of Systems Review of systems not obtained due to patient factors: Unable to speak History reviewed. No pertinent past medical history.- cannot obtain as patient is aphasic History reviewed. No pertinent surgical history. Social History Tobacco Use ??? Smoking status: Current Every Day Smoker Packs/day: 0.25 Years: 15.00 Pack years: 3.75 ??? Smokeless tobacco: Never Used Substance Use Topics ??? Alcohol use: Yes Family History Problem Relation Age of Onset ??? Cancer Mother 72 Liver ??? Cancer Father Medications Prior to Admission Medication Sig ??? acetaminophen (TYLENOL EXTRA STRENGTH) 500 mg tablet 2 tab(s) orally every 6 hours ??? buPROPion (WELLBUTRIN XL) 300 mg XL tablet TK 1 T PO QAM ??? estradiol-norethindrone (COMBIPATCH) 0.05-0.14 mg/24 hr patch 1 PATCH applied topically 2 timesa week ??? omeprazole (PRILOSEC) 40 mg capsule TK ONE C PO QD ??? Prazosin (MINIPRESS) 1 mg capsule TK ONE C PO HS ??? propRANolol (INDERAL) 10 mg tablet TK 1 T PO ON AN EMPTY STOMACH Q 8 H PRN ??? QUEtiapine (SEROQUEL) 50 mg tablet Take 100 mg by mouth at bedtime. Allergies Allergen Reactions ??? Citalopram Other reaction(s): increased anxiety ??? Duloxetine Other reaction(s): increased anxiety ??? Pregabalin Other reaction(s): dizziness ??? Zolpidem Other reaction(s): sleep walking with over 5 mg Objective Vitals Temp: [36.4 ??C (97.6 ??F)] (), Heart Rate: [67 BPM-91 BPM] (), Pulse: [95] (), Resp: [14-28] (), BP: (113-170)/(60-100) (), SpO2: [92 %-99 %] (), Numeric Pain Level (Scale 1-10): -- Weight: Weight : 98.5 kg (217 lb 2.5 oz) Body mass index is 34 kg/m??. Physical exam: Gen: Lying in bed, moaning, clutching head HEENT: Normocephalic, atraumatic Cardio: RRR. No murmurs/rubs/gallops appreciated. Lungs: Normal work of breathing. Abdomen: Soft, nondistended. Extremities: No edema present. Skin: Warm, dry, no rash. Neurological Exam Mental status/speech: Able to give name. Alert and interactive. Follows simple commands, had difficulty with more complex commands. Speech is nonsensical (word salad). Cranial nerves: Pupils equally round and reactive. Extraocular movements intact. Facial strength symmetric. Hearing intact to voice. No dysarthria. Tongue midline. Motor: Normal bulk and tone. No abnormal movements. Moving all four extremities equally. No drift in any limb. Had difficulty following directions for formal strength testing. Reflexes: Babinski negative bilaterally. Sensory: Unable to assess due to patient's difficulty communicating. Cerebellar: Unable to follow directions for [id number]-[id number] testing. Pressure Ulcer Present on admission? No Labs I have personally reviewed Recent Labs 02/14/20 1748 WBC 6.92 RBC 4.47 HGB 15.1 HCT 44.8* MCV 100* MCH 33.8* MCHC 33.7 PLT 167 NEUTROABS 5.03 Recent Labs 02/14/20 1748 NA 135* K 4.7 CL 105 CO2 26 BUN 11 CREATININE 0.66 CALCIUM 8.8 Recent Labs 02/14/20 2053 TROPONINI <0.[address] venogram 02/14/20: IMPRESSION 1. Venous thrombosis in the left internal jugular vein, sigmoid and transverse sinus as well as theveins of [place] and Kristen. 2. Intraparenchymal hemorrhage has increased slightly from prior. Together, these findings are consistent with cerebral venous thrombosis. 3. Stable midline shift. No evidence of herniation. CT angiogram head/neck 02/14/20: IMPRESSION No significant abnormality of the major intracranial or cervical arterial vasculature. Please referto dedicated CT venogram for findings of venous infarct and slight increase in intraparenchymal hemorrhage. CT head 02/14/20: IMPRESSION: 1. Acute intra-axial hemorrhage left temporal and frontal lobes the approximately 5.8 by 3.5 by 4.8 cm. Associated subarachnoid hemorrhage over the left hemisphere. 2. 2 mm [id number] midline shift. Assessment Ynes White is a 50 y.o. female with a PMHx significant for smoking who presents with a cerebral venous thrombosis and resultant intraparenchymal hemorrhage in the left frontotemporal area. Her [employer] medications include hormone replacement therapy (estradiol-norethindrone), which may be a contributing factor. Will admit for close monitoring and anticoagulation. Plan Cerebral venous thrombosis: - Admit to ICU - q1h neuro checks - Interventional radiology aware, are following - Evaluated by neurosurgery, appreciate recommendations - Repeat CT head at 0000 to assess for stability - Low threshold to repeat CT head if declining neuro status - Nicardipine drip to maintain SBP < 140 - Morphine 2 mg q2h for pain control - Heparin drip started at 17 units/kg/hr - RATING CLERK evaluation - Will need hematology consult in morning for hypercoagulability evaluation - Unsafe for swallow evaluation; maintain NPO Smoking history: - Nicotine patch Additional Information for Stroke Stroke code: Last Known Well Time: Date: 02/14/20 ICH Score: 0 GCS Score: 13 AVM? Hemorrhage site: Subcortical, Cortical Will coiling or clipping be started within 36 hours?: Not applicable Is patient on telemetry?: Yes Arrhythmias noted while on telemetry: NSR Procoagulants Reversal Agent Initiated: Enrolled in a clinical research study?: No Personal Risk Factors: Smoking Treatment plan and/or risk/benefits of treatment/diagnostic work-up was fully discussed at bedside:Unable Discharge Plan: Uncertain at this time Admission Status Inpatient. Anticipated duration of hospitalization is greater than two midnights due to cerebral venous thrombosis. Discussed with Dr. Greene over phone. Will be formally staffed in morning. Joyce Lee MD 02/14/2020 22:25 Attestation statement: I saw and examined the patient with the resident on 02/15/2020. I agree withthe findings and plan of care documented in the resident's/fellow's note. Michelet Paz MD MSc * Ashleigh Patel MD - 02/14/2020 1741 EDT Neurosurgery History and Physical Service Date: 02/14/2020 Admit Date: 02/14/2020 16:23 Primary Care Provider: Alejandrina Carrillo Consult requested by Brayan Plummer* for intracranial hemorrhage Chief Complaint: altered mental status HPI Ynes White is a 50 y.o. female with a past medical history of post concussion syndrome and tobacco use who presents from [facility] for left temporoparietal intracranial hemorrhage. History gathered from OSH notes as patient is profoundly receptively and expressively aphasic. Patient was evaluated yesterday at [facility] for left frontal headache. She had a negative CT head at the time and was discharged home. She was found this morning altered and complaining of headache, brought to [facility] where CT head demonstrated significant left temporoparietal intracranial hemorrhage fysy0lm shift and hypertensive at 170/100. She was given 1g Keppra IV, 4mg IV ondansetron, 100mcg of IVfentanyl, on nicardipine at 5mg/hr. She was transferred to [facility] for further evaluation. Dr Plummer in the ED contacted Neurosurgery to evaluate the patient. She is able to state I'm sorry, I don't understand. Otherwise patient is speaking word salad. Unable to comprehend most speech (can follow some orders if mimed or repeat), unable to follow written orders or questions, unable to write. Review of Systems Complicated by patient condition. History reviewed. No pertinent past medical history. History reviewed. No pertinent surgical history. Social History Tobacco Use ??? Smoking status: Current Every Day Smoker Packs/day: 0.25 Years: 15.00 Pack years: 3.75 ??? Smokeless tobacco: Never Used Substance Use Topics ??? Alcohol use: Yes Family History Problem Relation Age of Onset ??? Cancer Mother 72 Liver ??? Cancer Father Current Outpatient Medications: acetaminophen (TYLENOL EXTRA STRENGTH) 500 mg tablet 2 tab(s) orally every 6 hours buPROPion (WELLBUTRIN XL) 300 mg XL tablet TK 1 T PO QAM estradiol-norethindrone (COMBIPATCH) 0.05-0.14 mg/24 hr patch 1 PATCH applied topically 2 times a week omeprazole (PRILOSEC) 40 mg capsule TK ONE C PO QD Prazosin (MINIPRESS) 1 mg capsule TK ONE C PO HS propRANolol (INDERAL) 10 mg tablet TK 1 T PO ON AN EMPTY STOMACH Q 8 H PRN QUEtiapine (SEROQUEL) 50 mg tablet Take 100 mg by mouth at bedtime. Allergies Allergen Reactions ??? Citalopram Other reaction(s): increased anxiety ??? Duloxetine Other reaction(s): increased anxiety ??? Pregabalin Other reaction(s): dizziness ??? Zolpidem Other reaction(s): sleep walking with over 5 mg Objective Vitals Temp: [36.4 ??C (97.6 ??F)] (), Heart Rate: [91 BPM] (), Resp: [16-19] (), BP: (114-170)/(79-100) (), SpO2: [96 %-99 %] () Numeric Pain Level (Scale 1-10): -- Pain: No data found. Weight: Weight : 98.5 kg (217 lb 2.5 oz) There is no height or weight on file to calculate BMI. Physical Exam Alert, rubbing left side of head Producing speech, but word salad Unable to answer orientation questions Eventually follows commands x4 Unable to perform Extraocular movements Pupils equal, round, reactive Face symmetric Tongue midline Unable to follow dysmetria UE Strength - LEFT Deltoid (C5) Unable to perform Bicep (C5, 6) 5/5 Tricep (C6, 7) 5/5 Fire Chief'S Aide (C8) 5/5 UE Strength - RIGHT Deltoid (C5) Unable to perform Bicep (C5, 6) 5/5 Tricep (C6, 7) 5/5 Fire Chief'S Aide (C8) 5/5 No drift LE Strength - LEFT Gastroc (S1, S2) 5/5 Anterior Tibialis (L4, 5) 5/5 Extensor Hallicus (L5) 5/5 LE Strength - RIGHT Gastroc (S1, S2) 5/5 Anterior Tibialis (L4, 5) 5/5 Extensor Hallicus (L5) 5/5 Pressure Ulcer Present on admission? No Labs CBC: Recent Labs 02/14/20 1748 WBC 6.92 RBC 4.47 HGB 15.1 HCT 44.8* MCV 100* MCH 33.8* MCHC 33.7 PLT 167 NEUTROABS 5.03 Imaging [facility] CT head wo Contrast 02/14/2020 IMPRESSION: 1. Acute intra-axial hemorrhage left temporal and frontal lobes the approximately 5.8 by 3.5 by 4.8cm. Associated subarachnoid hemorrhage over the left hemisphere. 2. 2 mm [id number] midline shift. CT angio head and neck IMPRESSION (Prelim) No significant abnormality of the major intracranial or cervical arterial vasculature. Please referto dedicated CT venogram for findings of venous infarct and slight increase in intraparenchymal hemorrhage. CT head venogram w/ contrast IMPRESSION (Prelim) 1. Venous thrombosis in the left internal jugular vein, sigmoid and transverse sinus as well as theveins of Trolard and Kristen. 2. Intraparenchymal hemorrhage has increased slightly from prior. Together, these findings are consistent with cerebral venous thrombosis. 3. Stable midline shift. No evidence of herniation. Assessment 50 y.o. female with a past medical history of post concussion syndrome and tobacco use who [facility] for atraumatic left temporoparietal intracranial hemorrhage and hypertensive requiring nicardipine drip. Profound expressive and receptive aphasia, appears uncomfortable holding head. CTA and CTV demonstrating additional venous thrombosis in the left internal jugular vein, sigmoid and transverse sinus as well as the veins of Trolard and Kristen. No neurosurgerical intervention recommended. Plan - No acute surgical intervention - q1h neuro check - SBP <140 - OK for heparin drip, advise against bolus - Repeat head CT in 4 hours, repeat CT when therapeutic on heparin - MRI when stable - Hold DVT proph - RATING CLERK consult - Neurology evaluation for work up and management of spontaneous/hypertensive hemorrhagic stroke Patient Active Problem List Diagnosis ??? Back pain ??? Chronic low back pain ??? Encounter for insertion or removal of intrauterine contraceptive device ??? Nicotine dependence, unspecified, uncomplicated ??? Perimenopausal ??? Post concussion syndrome ??? Tobacco abuse ASHLEIGH PATEL MD 02/14/2020 17:43 Cosigned by Claus Piña MD at 02/15/2020 11:25 EDT Associated attestation - Claus Piña MD - 02/15/2020 1125 EDT Attending attestation statement: I saw and examined the patient with the resident on 02/15/2020. I agree with the findings and plan of care documented in the resident's note. Request for consultation made by Amber Greene MD for the problem of ICh. 50 yo woman with onset yesterday of headache and speech impairment. Minimal comprehension, word salad output. No motor deficit. I have reviewed the imaging, Outside CT and 2 CTs here on 02/14. Images fused in the [facility] workstation for comparison. No change in the size or configuration of the diffuse left temporal-parietal ICH. Consistent with venous thrombosis as diagnosed. IMPRESSION ?? Diffuse ICH due to venous thrombosis, clinically stable, imaging stable. Agree with gentle heparinization, close attention to levels. Consider repeating imaging daily for the next few days. Consider IR consult for possible clot extraction should the situation worsen. We will follow with you. 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.] Claus Piña MD FACS 02/15/2020 at 11:21 documented in this encounter Procedure Notes * Brayan Putnam MD - 02/18/2020 1518 EDT PERCUTANEOUS ENDOSCOPIC GASTROSTOMY TUBE PLACEMENT DATE OF SERVICE: 02/18/2020 PRE-OPERATIVE DIAGNOSIS: Cerebral venous thrombosis POST-OPERATIVE DIAGNOSIS: same PROCEDURE: Percutaneous gastrostomy tube placement using the pull-through technique SURGEON: Ashleigh Branch MD [employer] COUNTER CLERK/ENDOSCOPIST: Haile Cruz MD, Jason Putnam MD ANESTHESIA: Analgesia and sedation with Propofol gtt, Precedex gtt, Rocuronium and Versed COMPLICATIONS: None apparent INDICATIONS: Ynes White is a 50 y.o. female with Cerebral venous thrombosis and need for enteral access, and risk of malnutrition. PROCEDURE: Appropriate sedation and analgesia was administered as noted above. A mouth protector was placed. The gastroscope was passed through the mouth into the esophagus, The esophagus was examined and appeared normal. The stomach was entered and insufflated. Mucosa appeared normal. The left anterior abdomen, just below the costal margin was palpated and the indentation in the stomach could be seen. The light from the scope could be seen through the abdominal wall. The anterior abdominal wall was palpated again and the position on the stomach was noted. The proposed puncture site was prepped with betadine and anesthetized with 1% xylocaine. The small needle for infiltration of local anesthesia was placed through the abdominal wall and into the gastric lumen where it was visualized with gastroscope. It was removed. A small stab wound was made at the proposed site of puncture. The large needle was then used to puncture the anterior abdominal wall and its tip was visualized entering the gastric lumen. The snare was passed through the gastroscope and around the plastic sheath over the needle. A wire was passed through the needle and grasped with the snare. The gastroscope was then removed with the wire. The wire was then looped over the end of the gastrostomy tube which was then pulled back into the stomach. The gastroscope followed the tube back into the stomach. The mushroom of the tube was then pulled gently up to the anterior stomach wall. Hemostasis was complete.. The end of the gastrostomy tube was cut and the bumper passed over the tube to lie firmly, but not tightly, on the abdominal wall. The connector was attached to the tube which was then placed on gravity drainage. The gastroscope was removed from the stomach after all air had been aspirated. The patient tolerated the procedure well. We will keep the tube on drainage tonight and plan on using it for nutritional support in [address] Thomas Branch was present at the bedside for this procedure. documented in this encounter Consult Notes * Maria Victoria Hernandez MD - 03/02/2020 1255 EDT MEDICINE CONSULT Requested by: Dr. Rutherford Reason: Hypercoagulable state of unclear origin, cerebral venous thrombosis presenting as left frontal intraparenchymal hemorrhage, incidental PE in RUL and UE DVT, worsening hemorrhage in the setting of therapeutic anticoagulation Date of admission to hospital: 02/14/2020 Date of admission to [facility]: 03/02/2020 HPI: Patient was admitted with a left intraparenchymal hemorrhage related to a sizeable cerebral venous thrombosis in the left IJ --> sigmoid--> transverse sinus. She is unable to give history due to poor memory and fluent expressive aphasia. On chart review, she presented to [facility] the day before with strong headache and had a negative head CT at the time. She went home and developed worsening confusion and worse headache which prompted return to the ED on 02/13 where imaging then showed large left temporo-parietal hemorrhage. She was hypertensive so was treated with iv keppra and a continuous nicardipine infusion and transferred urgently to [facility] for further neurosurgical evaluation. On arrival, subsequent CTA of the head showed venous thrombosis in the left internal jugular vein, sigmoid and transverse sinus. Intraparenchymal hemorrhage had increased slightly from prior with stable midline shift. Because of thrombosis, further imaging of the chest, abdomen and pelvis were done to RO occult malignancy. She was found to have a segmental right upper lobe PE, but no obvious malignancy. She was started on a heparin drip, but unfortunately developed worsening bleeding, prompting an urgent trip to the OR for left frontal, temporal and parietal craniectomy for evacuation of the intraparenchymal hemorrhage on 02/16/2020. It sounds like the procedure went well and there was some delibera tion about even replacing the bone flap right then, but in anticipation of possible post-op brain edema or even re-bleed, they elected to keep the bone flap off. She has been seen by the hematology service and some preliminary hypercoagulable tests have been run. She is factof V leiden negative, cardiolipin antibody negative. She does have low protein C levels and this will need follow-up testing outside of the acute time frame. Because of the extension of bleed on heparin, her anticoagulation was started slowly. She was givenenox 90 once on 02/28 and then uptitrated to 90 bid (weight based: 1mg/kg bid) only just yesterday. A LMWH level was not drawn after the 3rd or 4th dose prior to her transfer to rehab. We will then have to get one tomorrow am, after morning dose. She has a PEG in place, but I think she is eating. She is on a dysphagia 4 diet with thins. She has a fluent expressive aphasia and some moderate receptive. She can be impulsive and her memory is impaired. She transferred to acute rehab for continued functional therapies on 03/02/2020. REVIEW OF SYSTEMS AT PRESENT: A ten point review of systems was performed. Pertinent positives are listed below, all others are negative: ++++++aphasia expressive>>>>>>receptive Poor memory Some confusion PMH: History reviewed. No pertinent past medical history. MEDS: List reviewed. No current facility-administered medications for this encounter. No current outpatient medications on file. Facility-Administered Medications Ordered in Other Encounters: acetaminophen (TYLENOL) tablet 1,000 mg oral Q6H Or acetaminophen (TYLENOL) solution unit dose cup 995 mg per ng tube Q6H Or acetaminophen (TYLENOL) suppository 975 mg rectal Q6H amino acids-protein hydrolysate (PRO SOURCE NOCARB) packet 60 mL feeding tube BID [START ON 03/03/2020] aspirin chewable tablet 81 mg oral DAILY bisacodyL (DULCOLAX) suppository 10 mg rectal Q48H PRN calcium carbonate (TUMS) 200 mg calcium (500 mg) per chewable tablet tablet,chewable 1 Tab oral QIDPRN docusate (COLACE) liquid 100 mg oral BID enoxaparin (LOVENOX) injection 90 mg subcutaneous Q12H guaiFENesin tablet 200 mg oral Q6H PRN HYDROmorphone (DILAUDID) tablet 2-4 mg oral Q4H PRN [START ON 03/03/2020] lisinopriL (PRINIVIL) tablet 20 mg oral DAILY melatonin tablet 3 mg oral QHS metoprolol (LOPRESSOR) tablet 25 mg oral BID [START ON 03/03/2020] Multivitamins with minerals + ferrous gluconate (CENTRUM) oral solution 15 mL feeding tube DAILY [START ON 03/03/2020] nicotine (NICODERM CQ) 7 mg/24 hr patch 1 Patch transdermal Q24H [START ON 03/03/2020] pantoprazole (PROTONIX) tablet 40 mg oral DAILY papain-alpha amylase-cellulase (CLOG ZAPPER) 2-5 mL feeding tube PRN QUEtiapine (SEROQUEL) tablet 25 mg oral QHS senna (SENOKOT) tablet 1 Tab oral BID ALL: Allergies Allergen Reactions ??? Citalopram Other reaction(s): increased anxiety ??? Duloxetine Other reaction(s): increased anxiety ??? Pregabalin Other reaction(s): dizziness ??? Zolpidem Other reaction(s): sleep walking with over 5 mg SOCIAL: Social History Tobacco Use ??? Smoking status: Current Every Day Smoker Packs/day: 0.25 Years: 15.00 Pack years: 3.75 ??? Smokeless tobacco: Never Used Substance Use Topics ??? Alcohol use: Yes She says she lives in [place] (?), but it looks like maybe [place] (close) Does not work she says Says she lives by herself FAMILY: Family History Problem Relation Age of Onset ??? Cancer Mother 72 Liver ??? Cancer Father 79 mesothelioma ??? Cancer Maternal Grandmother 80 EXAM: BP 116/71 (BP Cuff Location: Left arm, BP Patient Position: Lying right side) Pulse 101 Temp 35.9 ??C (96.6 ??F) (Tympanic) Resp 16 Ht 170.2 cm (67) Wt 89.9 kg (198 lb 1.6 oz) SpO2 94% BMI 31.03 kg/m?? Gen: Alert, very pleasant, no distress +++fluent aphasia and language of confusion I didn't know aleyda Santos (Dr. Rutherford) HEENT: Dry mouth, a couple missing posterior teeth Head Incision looks ok, some eschar along midsection Ghassan in place Skin: No rash Cardiac: Regular Pulmonary: Clear Abdomen: Soft, nontender +PEG in LUQ No reyes Musculoskeletal: no joint tenderness, deformity or swelling Neuro: Very agreeable and pleasant Communicates intent with michelle and pitch but words are nonsensical Affect: Pleasant Language: Speech is fluent but confused She is able to follow some directions - could sit up when asked Took big breaths when asked Some apraxia with squeeze my fingers - she mimicked the action No ptosis or anisocoria is noted. Face symmetric without weakness. Hearing grossly intact. No dysphonia, dysarthria. Motor: Strength grossly symmetric DATA: Labs: I have personally reviewed CBC: Lab [...] PHOS 5.6 (H) 03/02/2020 LABALBU 3.9 05/07/2001 Coagulation: Lab Results Component Value Date PROTIME 13.2 03/02/2020 PTT 39 (H) 03/02/2020 IMPRESSION + SUGGESTIONS: 1. Venous dural thrombosis resulting in large IPH PT/OT/RATING CLERK Falls precautions Delirium prevention measures Aspiration precautions Dysphagia diet: 4 with thins She currently has 1:1 for impulsivity and safety (needs to wear helmet OOB) Would be nice to get off the seroquel at night 2. Hypercoagulable disorder NOS. Venous dural thrombosis, PE Cont enox (reweighed at arrival at rehab) Will check LMWH level 4h after tomorrow's am dose OP heme clinic Maria Victoria Hernandez MD 03/02/2020 14:12 * Jaden Rutherford MD - 02/26/2020 1530 EDT Physical Medicine and Rehabilitation Consult Admit Date: 02/14/2020 Date of Service: 02/26/2020 PCP: Alejandrina Carrillo Chief Complaint: Rehabilitation consultation requested by Claus Piña in this patient with intracranial hemorrhage. History is obtained from full chart review and the results are summarized below. HPI Patient is a 50-year-old female with a history of postconcussive syndrome and tobacco abuse. She had noted headache on 02/13/2020 was evaluated at [facility], where CT scan of the head was reported as negative she was discharged to home. On 02/14/2020, she had continued headache, and brought back to [facility] where CT scan of the head showed a significant left temporoparietal intracranial hemorrhage with 2 mm shift, she was hypertensive at 170/100. She was transferred to the [facility] for further evaluation. On admission, she was seen by neurosurgery and neurology. CT angiogram ofthe head and neck and CT venogram of the head demonstrated venous thrombosis the left internal jugular vein, sigmoid and transverse sinus as well as the veins of Trolard and Kristen. Intraparenchymal hemorrhage had increased slightly but there was stable midline shift with no evidence of herniation. She additionally was found to have a segmental right upper lobe acute pulmonary embolism low-densitylesion in the lateral segment of the left lobe of the liver. Cerebral hemorrhage remained stable on serial CT [...] upper extremity DVT. Work-up for thrombosis has been nonconclusive. Initiation of IV heparin has been made, with a plan to tentative convert her to Lovenox if stable. PT, OT, RATING CLERK have all been involved in her care she is remained with significant limitations with overall mobility, self-cares, communication and swallowing function. Rehabilitation consultation requested to evaluatefor ongoing rehabilitative efforts. PMH PSH History reviewed. No pertinent past medical history. History reviewed. No pertinent surgical history. Social [...] 2 tab(s) orally every 6 hours ??? buPROPion (WELLBUTRIN XL) 300 mg XL tablet TK 1 T PO QAM 0 ??? estradiol-norethindrone (COMBIPATCH) 0.05-0.14 mg/24 hr patch 1 PATCH applied topically 2 timesa week ??? omeprazole (PRILOSEC) 40 mg capsule TK ONE C PO QD 0 ??? Prazosin (MINIPRESS) 1 mg capsule TK ONE C PO HS 1 ??? propRANolol (INDERAL) 10 mg tablet TK 1 T PO ON AN EMPTY STOMACH Q 8 H PRN 0 ??? QUEtiapine (SEROQUEL) 50 mg tablet Take 100 mg by mouth at bedtime. 1 Allergies Allergies Allergen Reactions ??? Citalopram Other [...] the past 8 hrs: BP Heart Rate Resp Temp SpO2 02/26/20 1357 (!) 144/90 (!) 106 BPM -- -- -- 02/26/20 1157 (!) 139/92 101 BPM 20 36.4 ??C (97.5 ??F) -- 02/26/20 0946 (!) 148/75 94 BPM -- -- -- 02/26/20 0944 -- (!) 108 BPM -- -- -- 02/26/20 0834 (!) 148/103 -- -- -- -- 02/26/20 0822 (!) 148/103 (!) 106 BPM 17 36.7 ??C (98.1 ??F) 99 % Pain: Patient Vitals for the past 8 hrs: Numeric Pain Level (Scale 1-10) Asleep 02/26/20 1500 -- Reassessed, sleeping comfortably, RR WNL. 02/26/20 1300 0 -- 02/26/20 1116 2 -- 02/26/20 1100 -- Reassessed, sleeping comfortably, RR WNL. 02/26/20 0834 0 -- 02/26/20 0832 0 -- 02/26/20 0822 2 -- Weight: Weight : 93.7 kg (206 lb 8 oz) BMI: Body mass index is 32.34 kg/m??. Glucose Readings (last 8 readings): No results for input(s): GLUCOSEFINGE in the last 72 hours. Exam: Gen: Alert, pleasant, no distress HEENT: Decompressive left hemicraniectomy is noted. Ghassan are in place the surgical incision and her craniectomy site is full. No evidence of visual field deficit as she is scanning bilaterally. Cardiac: Cor RRR Pulmonary: clear to auscultation bilaterally Abdomen: normal bowel sounds, soft, nontender PEG tube in place Musculoskeletal: no joint tenderness, deformity or swelling, no muscular tenderness noted, full range of motion without pain Neuro: She is awake she is following intermittent commands. Significant expressive greater than receptive aphasia. Affect: appropriate Motor: Left upper and lower extremity grossly 4/5. Right upper lower extremity 3+/5. Sensation unable to fully assess Cerebellar no tremor Data Review: Labs: I have personally reviewed CBC: Lab Results Component Value Date WBC 9.19 02/26/2020 RBC 3.26 (L) 02/26/2020 HGB 10.9 (L) 02/26/2020 HCT 31.6 (L) 02/26/2020 MCV 97 02/26/2020 MCH 33.4 (H) 02/26/2020 MCHC 34.5 02/26/2020 PLT 376 02/26/2020 NEUTROABS 5.03 02/14/2020 BMP: Lab Results Component Value Date NA 135 (L) 02/26/2020 K 3.9 02/26/2020 CL 105 02/26/2020 CO2 25 02/26/2020 BUN 16 02/26/2020 CREATININE 0.47 (L) 02/26/2020 CALCIUM 8.8 02/14/2020 MG 1.9 02/26/2020 PHOS 4.0 02/26/2020 LABALBU 3.9 05/07/2001 Other Studies: N/A Assessment/Problems: (update problem list daily as appropriate) Patient Active Problem List Diagnosis Date Noted ??? *(H)Cerebral venous thrombosis 02/14/2020 Priority: Medium ??? (H)Brain herniation ([facility]) 02/17/2020 Priority: Medium ??? (H)Cerebral edema ([facility]) 02/17/2020 Priority: Medium ??? (H)Cerebral venous sinus thrombosis 02/14/2020 Priority: Medium ??? Encounter for insertion or removal of intrauterine contraceptive device 02/12/2020 Priority: Medium ??? Nicotine dependence, unspecified, uncomplicated 02/12/2020 Priority: Medium ??? Perimenopausal 02/12/2020 Priority: Medium ??? Post concussion syndrome 02/12/2020 Priority: Medium ??? Tobacco abuse 12/02/2012 Priority: Medium ??? Chronic low back pain 10/13/2012 Priority: Medium ??? Back pain 09/25/2012 Priority: Medium Assessment/Plan: 1. Left intracranial hemorrhage: Patient with secondary mild right hemiparesis, expressive and receptive aphasia, dysphagia, status post left hemicraniectomy and evacuation of intraparenchymal hemorrhage: Please continue consultations with PT, OT and RATING CLERK to address mobility, self-cares, language communication, swallowing function. Agree with 1: 1 supervision at this time given impulsivity. Out of bed to chair limit secondary debility Monitor for adequate nutritional intake. 2. DVT/pulmonary embolism: Heparin drip to initiate today with conversion to Lovenox. Thank you for the opportunity to dissipate in this woman's care. I will follow her rehabilitative concerns with you in anticipation of admission to inpatient rehabilitation next week. Jaden Rutherford MD 02/26/2020 15:31 * Haile Cruz MD - 02/17/2020 1616 EDT Surgical Consultation Date of Service: 02/17/2020 Chief Complaint: Altered mental status Reason for consultation: Need for enteral access Requesting provider: Dr. Piña HPI: 50-year-old female admitted to neurosurgery since 02/14/2020 for management of a left temporoparietal intracranial hemorrhage. Acute care surgery consulted for placement of PEG tube. She is unable to participate in the history taking process and as such information herein is obtained from her medical record. Presented initially with headache and speech impairment which progressed to significant altered mental status. Was initially managed with heparinization given finding of venous thrombosis however ultimately required a left craniectomy and hematoma evacuation on 02/16/2020. Since surgery shehas remained intubated and the neurosurgery team as well as the critical care team has requested placement of a percutaneous endoscopic gastrostomy tube for enteral feeds expecting that she will not be able to eat following extubation which is tentatively planned for tomorrow. PMH PSH History reviewed. No pertinent past medical history. History reviewed. No pertinent surgical history. Social History Family history Social History Tobacco Use ??? Smoking status: Current Every Day Smoker Packs/day: 0.25 Years: 15.00 Pack years: 3.75 ??? Smokeless tobacco: Never Used Substance Use Topics ??? Alcohol use: Yes Family History Problem Relation Age of Onset ??? Cancer Mother 72 Liver ??? Cancer Father 79 mesothelioma ??? Cancer Maternal Grandmother 80 Medications Current Facility-Administered Medications: acetaminophen (TYLENOL) tablet 650 mg oral Q4H PRN Or acetaminophen (TYLENOL) solution unit dose cup 650 mg per ng tube Q4H PRN Or acetaminophen (TYLENOL) suppository 650 mg rectal Q4H PRN amino acids-protein hydrolysate (PRO SOURCE NOCARB) packet 60 mL feeding tube BID [START ON 02/18/2020] bisacodyL (DULCOLAX) suppository 10 mg rectal Q48H PRN dextrose 50 % solution 12.5 g intravenous PRN docusate sodium (COLACE) capsule 100 mg oral BID glucagon injection 1 mg intramuscular PRN heparin injection 5,000 Units subcutaneous Q8H hydrALAzine (APRESOLINE) injection 10 mg intravenous Q1H PRN impact peptide 1.5 0.09 gram- 1.5 kcal/mL per ng tube CONTINUOUS insulin aspart U-100 (NOVOLOG FLEXPEN) injection subcutaneous Q6H iohexoL (OMNIPAQUE 350) solution 100 mL intravenous Once in imaging levETIRAcetam (KEPPRA) tablet 500 mg oral Q12H Or levETIRAcetam (KEPPRA) 500 mg in sodium chloride (NS) 0.9 % 100 mL IVPB intravenous Q12H lidocaine (XYLOCAINE) 2 % viscous solution morphine injection 2 mg intravenous Q2H PRN Multivitamins with minerals + ferrous gluconate (CENTRUM) oral solution 15 mL feeding tube DAILY nicotine (NICODERM CQ) 7 mg/24 hr patch 1 Patch transdermal Q24H ondansetron (PF) (ZOFRAN) 4 mg/2 mL injection ondansetron (PF) (ZOFRAN) injection 4 mg intravenous Q4H PRN pantoprazole (PROTONIX) tablet 40 mg oral DAILY Or pantoprazole (PROTONIX) injection 40 mg intravenous DAILY papain-alpha amylase-cellulase (CLOG ZAPPER) 2-5 mL feeding tube PRN papain-alpha amylase-cellulase (CLOG ZAPPER) 2-5 mL feeding tube PRN phenylephrine-lidocaine 0.25 %-3 % (CO-PHENYLCAINE) topical solution 5 mL topical ONCE prochlorperazine edisylate (COMPAZINE) 10 mg/2 mL (5 mg/mL) injection prochlorperazine edisylate (COMPAZINE) injection 10 mg intravenous Q6H PRN propOFol (DIPRIVAN) 10 mg/mL injection propOFol (DIPRIVAN) 1000 mg in 100 mL infusion intravenous CONTINUOUS rocuronium (ZEMURON) 10 mg/mL injection [START ON 02/18/2020] senna (SENOKOT) tablet 1 Tab oral BID sodium chloride 0.9 % with KCl 20 mEq/L infusion intravenous CONTINUOUS sodium chloride 3 % infusion intravenous CONTINUOUS Allergies Allergies Allergen Reactions ??? Citalopram Other reaction(s): increased anxiety ??? Duloxetine Other reaction(s): increased anxiety ??? Pregabalin Other reaction(s): dizziness ??? Zolpidem Other reaction(s): sleep walking with over 5 mg Review of Systems: A ten point review of systems was performed, all pertinent positives and negatives are either abovein the HPI or listed below. Objective/Physical Exam: VS: Blood pressure 135/72, pulse 95, temperature 37.4 ??C (99.3 ??F), temperature source Oral, resp. rate 16, height 170.2 cm (67), weight 98.4 kg (217 lb), SpO2 99 %. Exam: In bed, intubated, non-communicative Heart regular rate and rhythm Lungs with good air movement throughout, bilateral scattered crackles Abdomen obese, no anterior abdominal wall scars Bilateral lower extremities without edema, warm and well perfused Data Review: CT abdomen pelvis from 02/14 reviewed, no imaging contraindications to PEG, report below: IMPRESSION: 1. No adnexal mass or evidence of malignancy in the abdomen or pelvis. Endovaginal ultrasound however is a better modality then CT to evaluate the ovaries 2. Probable benign hepatic cysts. Pertinent labs (see results review for comprehensive labs): HCT 35.5 PLT 142 WBC 7 Na 139 K 3.5 Cr 0.55 Assessment: 50-year-old female recovering from intracranial hemorrhage status post craniectomy, neurosurgery and critical care teams requesting placement of PEG tube as the patient is not expected to be able to eat after extubation. No contraindications to placement of PEG tube. Problems/Plan: PEG at the bedside in the surgical ICU tomorrow Family consented by the critical care team Please stop tube feeds after midnight tonight Ok to continue prophylactic dose heparin Haile Cruz MD 02/17/2020, 16:39 General Surgery PGY-4 Pager [phone] Above discussed with attending Dr. Branch Cosigned by Ashleigh Branch MD at 02/18/2020 8:59 EDT * Riana Anat, RD - 02/17/2020 1151 EDTAssociated Order(s): CONSULT NUTRITION Nutrition Reassessment: ?? Medical Summary: Ynes White is a 50 y.o. female admitted on 02/14/2020 with PMHx significant for cigarette smoking who presented 02/13 after left frontotemporal IPH secondary to cerebral venous sinus thrombosis. Monitored x 2 days with stable neuro exam (global aphasia, symmetric strength) and started on heparin drip. However significant expansion of IPH 02/15 with concurrent decline in neuro exam prompting emergent craniectomy with clot removal. SICU team consulted for airway and ICP management. ?? Subjective: Subjective information obtained from chart review as patient sedated with ETT in place. Current Nutrition Orders: Diet: NPO Tube Feed: Peptamen AF @10 mL/hr + 60 mL Prosource 3x/day Enteral Free Water: zero, flush following meds only Delegate Diet ordering to RD ?? Nutrition Focused Physical Findings: Cardiovascular-pulmonary: intubated Swallow Function: impaired Nerves and Cognition: stuporous Vital Signs: Mve 7 L/min; Tmax 38.2 ??C (100.8 ??F) Digestive Systems: Last BM unknown ?? Anthropometrics: Height: 170.2 cm Admission Weight: 98.5 kg Current Body Weight: 98.4 kg 02/14, BMI 34 kg/m2 [place] Body Weight (IBW): 61 kg Pertinent Medications: colace, aspart, MVM 15 mL liquid, protonix, senna 2x/day, propofol @24 mL/hr, 0.9% NS w/KCl @40 mL/hr, 3% NS @30 mL/hr (s/p IV MgSO4 x 1 this morning) Pertinent Labs: 02/16: renal wnl, Na 137, K+ 3.4, BG 109-115, Mg 1.6, Phos 2.7, WBC/Hgb/Hct wnl ?? Estimated Nutrition Needs: 1,710-1,950 kcal (MSJ x 1.05-PSU) 123 g Protein (2.0 g/kg IBW) Estimated Nutrition Intake: NPO 02/13-01/17 Less than 50% goal tube feed infused 02/15 ?? Assessment: Patient intubated, current propofol use is providing approx 630 kcal from fat daily. TF running at 10 mL/hr with good tolerance, however, has not passed a bowel movement t/o course of admission. Willchange tube feed to a more concentrated regime to coincide with fluid goals for permissive hypernatremia. Goal tube feed will provide add'l Vitamin C which is recommended to support antioxidant needsr/t active tobacco use prior to admission. Nutrition Risk Level: High (1) Medical Nutrition Therapy Plan and Recommendations: RD has order writing privileges and will modify the following orders: Enteral Nutrition - Continuous Impact Peptide 1.5 @ 28 mL/hr + 60 mL Prosource 2x/day - Goal TF provides 1,248 calories, 123 g protein, 670 mg Vitamin C, and 517 mL water daily Recommendations requiring MD orders: Re-check lytes, Mg, Phos daily Add scheduled miralax to bowel regime if no stool output today Adjust enteral free water as desired Re-check Weight 2-3x/week Anat Mayers RD [place] 3 Dietitian Pager: [phone] * Adali Heredia RD - 02/16/2020 1352 EDTAssociated Order(s): CONSULT NUTRITION Nutrition cx for TF: ?? Medical Summary: Ynes White is a 50 y.o. female admitted on 02/14/2020 AMS, ICH, HTN. Hx post concussion syndrome and smoking ?? Subjective: Pt in OR Current Nutrition Orders: NPO Propofol at 47 cc/hr last recorded prior to OR ?? Nutrition Focused Physical Findings: Edema: minimal Digestive Systems: Last BM;none Skin: wdl ?? Anthropometrics: Height: 67 Admission Weight: 98.4 BMI 34 ?? Adj wt= 80 Pertinent Medications: Current Facility-Administered Medications: acetaminophen (TYLENOL) tablet 650 mg oral Q4H PRN Or acetaminophen (TYLENOL) solution unit dose cup 650 mg per ng tube Q4H PRN Or acetaminophen (TYLENOL) suppository 650 mg rectal Q4H PRN [START ON 02/18/2020] bisacodyL (DULCOLAX) suppository 10 mg rectal Q48H PRN bupivacaine-EPINEPHrine (PF) 0.5 %-1:200,000 injection PRN [JAN Hold] dextrose 50 % solution 12.5 g intravenous PRN docusate sodium (COLACE) capsule 100 mg oral BID [JAN Hold] etomidate (AMIDATE) injection 49.2 mg intravenous Now gelatin adsorbable 100 cm sponge PRN Gelatin Adsorbable powder PRN [JAN Hold] glucagon injection 1 mg intramuscular PRN hydrALAzine (APRESOLINE) 10 mg in sodium chloride (NS) 0.9 % 50 mL IVPB intravenous Q1H PRN [JAN Hold] insulin aspart U-100 (NOVOLOG FLEXPEN) injection subcutaneous Q6H [JAN Hold] iohexoL (OMNIPAQUE 350) solution 100 mL intravenous Once in imaging levETIRAcetam (KEPPRA) tablet 500 mg oral Q12H Or levETIRAcetam (KEPPRA) 500 mg in sodium chloride (NS) 0.9 % 100 mL IVPB intravenous Q12H [JAN Hold] mannitol 25 % injection 50 g intravenous Now [JAN Hold] morphine injection 2 mg intravenous Q2H PRN niCARdipine (CARDENE) 25 mg in sodium chloride (NS) 0.9 % 250 mL peripheral infusion intravenous CONTINUOUS [JAN Hold] nicotine (NICODERM CQ) 7 mg/24 hr patch 1 Patch transdermal Q24H NORepinephrine (LEVOPHED) in D5W 32 mcg/ml 250 ml 8 mg/250 mL (32 mcg/mL) infusion solution ondansetron (PF) (ZOFRAN) 4 mg/2 mL injection ondansetron (PF) (ZOFRAN) injection 4 mg intravenous Q4H PRN pantoprazole (PROTONIX) tablet 40 mg oral DAILY Or pantoprazole (PROTONIX) injection 40 mg intravenous DAILY prochlorperazine edisylate (COMPAZINE) 10 mg/2 mL (5 mg/mL) injection [JAN Hold] prochlorperazine edisylate (COMPAZINE) injection 10 mg intravenous Q6H PRN propOFol (DIPRIVAN) 10 mg/mL injection propOFol (DIPRIVAN) 1000 mg in 100 mL infusion intravenous CONTINUOUS rocuronium (ZEMURON) 10 mg/mL injection [JAN Hold] rocuronium (ZEMURON) injection 49.2 mg intravenous Now [START ON 02/18/2020] senna (SENOKOT) tablet 1 Tab oral BID sodium chloride 0.9 % 1,000 mL with bacitracin 50,000 Units irrigation PRN sodium chloride 0.9 % with KCl 20 mEq/L infusion intravenous CONTINUOUS Thrombin (Bovine) 5,000 unit topical solution PRN Facility-Administered Medications Ordered in Other Encounters: acetaminophen (OFIRMEV) IV solution PRN ceFAZolin (ANCEF) injection PRN fentaNYL citrate (PF) injection intravenous PRN lactated ringers (LR) infusion One Step Meds lactated ringers (LR) infusion One [facility] lidocaine 20 mg/mL (2 %) injection other PRN mannitol 20 % infusion intravenous One [facility] propofol (DIPRIVAN) 500 mg in 50 mL infusion One Step Meds propOFol (DIPRIVAN) injection intravenous PRN remifentaniL (ULTIVA) 2 mg One Step Meds remifentaniL (ULTIVA) injection PRN sodium chloride 3 % infusion One Step [facility]s sugammadex (BRIDION) injection intravenous PRN vecuronium (NORCURON) injection PRN Pertinent Labs: Na 136 K 3.5 BS 107, 127 TG 103 A1C 5.4 ??04/12 vit D= 31 Estimated Nutrition Needs: 1000-6330 rizwana (BEE adj x 1.1/IRJ) 120 gm pro (1.5/kg adj wt) ?? Assessment: Pt is obese per BMI. She was on high doses propofol prior to OR this afternoon. If this resumes at ~ 45 cc/hr (1188 rizwana) would start Pept VHP at 10 cc/hr + 60 ml prosource TID to provide a total of 1788 rizwana, 112 gm pro +MVM to help meet RDI. Check daily lytes, mg, phos. Monitor TG on high dose propofol. Increase daily bowel meds as needed to promote daily BM. Nutrition Risk Level: High (1) Medical Nutrition Therapy Plan and Recommendations: If propofol ~ 40 cc/hr, start TF: Pept VHP at 10 cc/hr + 60 ml prosource TID Check daily lytes, mg, phos +MVM daily Adequate daily bowel meds Adali Heredia RD [place] [id number] Dietitian Pager: [phone] * Cecelia Ruano MD - 02/16/2020 4726 EDT Ophthalmology was asked to weigh in on the presence or absence of papilledema. Patient is a 50 yearold with cerebral venous thrombosis and an intraparenchymal bleed in the left front-temporal area, admitted 02/14/20. During the course of her admission she had worsening of her neurologic status and was found to have an increase in her p intracranial bleed with an increased mass effect. She went this morning for urgent craniotomy. She is on hourly neuro checks. On review of the CT scan of her head, there is no obvious papilledema. There is no suggestion of flattening of the globe, nor dilatation of the perineural space on imaging. I discussed patient with Dr. Tobin and appreciate his input. At this current time, we do not think a hands on exam will provide a change in management. Dr. Tobin has offered his services if you wish to direct a specific question to him. Please feel free to re-consult when Ynes is well enough to participate in a meaningful examination, if you feel we can be of use at that time. * Parag Eid MD - 02/16/2020 1037 EDT ICU Admit Note Admit Date: 02/14/2020 LOS: 2 days CC: Cerebral venous thrombosis Subjective: HPI: Ynes White is a 50 y.o. female w PMH significant for cigarette smoking who presented 02/13 after left frontotemporal IPH secondary to cerebral venous sinus thrombosis (left IJ, sigmoid, transverse sinuses). Monitored x 2 days with stable neuro exam (global aphasia, symmetric strength) andstarted on heparin drip. However significant expansion of IPH 02/15 with concurrent decline in exam to GCS8, right sided weakness and progressively dilated L pupil, prompting 3%, mannitol, and emergent craniectomy with clot removal. SICU team consulted for airway and ICP management preoperatively. History reviewed. No pertinent past medical history. History reviewed. No pertinent surgical history. Allergies Allergen Reactions ??? Citalopram Other reaction(s): increased anxiety ??? Duloxetine Other reaction(s): increased anxiety ??? Pregabalin Other reaction(s): dizziness ??? Zolpidem Other reaction(s): sleep walking with over 5 mg Family History Problem Relation Age of Onset ??? Cancer Mother 72 Liver ??? Cancer Father 79 mesothelioma ??? Cancer Maternal Grandmother 80 Social History Tobacco Use ??? Smoking status: Current Every Day Smoker Packs/day: 0.25 Years: 15.00 Pack years: 3.75 ??? Smokeless tobacco: Never Used Substance Use Topics ??? Alcohol use: Yes ??? Drug use: Not on file Medications: [JAN Hold] etomidate 0.5 mg/kg intravenous Now [Jan] insulin aspart U-100 subcutaneous Q6H [JAN Hold] iohexoL 100 mL intravenous Once in imaging [Jan] mannitol 50 g intravenous Now [Jan] nicotine 1 Patch transdermal Q24H NORepinephrine (LEVOPHED) in D5W 32 mcg/ml 250 ml ondansetron (PF) prochlorperazine edisylate propOFol rocuronium [JAN Hold] rocuronium 0.5 mg/kg intravenous Now Objective: Vital Signs: BP 128/72 Pulse 95 Temp 37.7 ??C (99.9 ??F) (Axillary) Resp 23 Ht 170.2 cm (67) Wt 98.4 kg (217 lb) SpO2 93% BMI 33.99 kg/m?? BP: (113-157)/(61-93) () Pulse: -- () Temp: [37 ??C (98.6 ??F)-38.1 ??C (100.5 ??F)] () Resp:[13-26] () SpO2: [92 %-96 %] () Admission weight: Weight : 98.5 kg (217 lb 2.5 oz) Most recent weight: Weight : 98.4 kg (217 lb) I/O: Current Shift: 02/15 0700 - 02/15 1459 In: 473 [I.V.:473] Out: 1110 [Urine:1110] 24 hrs: 02/14 0700 - 02/15 0659 In: 2207.4 [I.V.:1147.4] Out: 726 [Urine:726] Tubes/Lines/Infusions: Reyes Nicardipine PIV Physical Exam: Gen: NAD, minimal spontaneous movements Resp: CTA BL CV: RRR Abd: soft, nondistended : Reyes in place, clear yellow urine Ext: Minimal edema Neuro: L pupil 4mm sluggishly reactive, R pupil 3mm reactive Eyes closed Incoherent verbalization Nonspecific movement to command LUE, not mimicking LUE flexor posturing BLE withdrawing; L>R Labs: CBC: Recent Labs 02/14/20174702/15/2031402/16/20 0308 WBC 6.92 9.07 9.67 RBC 4.47 4.84 4.22 HGB 15.1 15.9* 14.1 HCT 44.8* 47.3* 40.8 MCV 100* 98 97 MCH 33.8* 32.9 33.4* MCHC 33.7 33.6 34.6 PLT 167 158 154 NEUTROABS 5.03 -- -- BMP: Recent Labs 02/14/20174702/15/2031402/16/20 0308 NA 135* 136 133* K 4.7 4.1 3.8 CL 105 103 101 CO2 26 23 25 BUN 11 -- -- CREATININE 0.66 0.61 0.62 CALCIUM 8.8 -- -- CALCCA 9.1 -- -- ABG: No results for input(s): PHISTAT, PCOISTAT, POISTAT, POCTCO2, K0EDGTTV, POCFIO2 in the last 72 hours. Coags: No results for input(s): PROTIME, INR, PTT in the last 72 hours. Assessment: Patient: 50 y.o. female w PMH significant for cigarette smoking who presented 02/13 after left frontotemporal IPH secondary to cerebral venous sinus thrombosis. Monitored x 2 days with stable neuro exam (global aphasia, symmetric strength) and started on heparin drip. However significant expansion of IPH 02/15 with concurrent decline in neuro exam prompting emergent craniectomy with clot removal. SICU team consulted for airway and ICP management. Principal Problem: Cerebral venous thrombosis Active Problems: Cerebral venous sinus thrombosis Plan: Neuro: GCS8 pending intubation. Morphine and tylenol for pain. Q1h neuro checks. Neurosurgery, Neurology, Neuro IR, opthalmology following CV: Cardiac monitoring. Telemetry. Nicardipine drip for SBP<140. Pulm: Pending intubation. GI/FEN: NPO for OR. Will consider tube feeds pending duration of intubation, nutrition consulted. Goal Na >140. Q6 lytes, sp 3% bolus. Replete lytes prn. Renal: Trend BUN/Cr, watch UOP. Heme: Will monitor daily CBC. Heparin drip reversed w protamine. Hematology following for hypercoagulability workup. ID: WBC stable. Trend WBC and fever curve. Periop antibiotics. Endo: POCT FSBG. Musculoskeletal: HOB elevated Ppx: SCDs, protonix IV, no DVT ppx or heparin drip pending NS recommendations. PARAG EID MD Pager #[phone] 02/16/2020 10:38 Cosigned by Gabe Sol MD PhD at 02/16/2020 21:42 EDT Associated attestation - Gabe Sol MD PhD - 02/16/2020 2514 EDT Attending attestation statement: I saw and examined the patient with the resident on 02/16/2020 andagree with the findings and plans as documented. Ynes White is a 50 y.o. female who is critically ill requiring management of the following life-threatening diagnoses: # Frontotemporal IPH - 2o cerebral venous sinus thrombosis # Altered mental status - GCS 8 - To OR for clot evacuation - SBP <140 - On Nicardipine drip - Na >140 - Intubated in SICU/OR for airway protection My bedside involvement was required to monitor and direct the critical care that has been provided.Exclusive of procedures, my critical care time is 35 minutes. Gabe Sol MD PhD Surgical Critical Care Pager #[phone] * Cheo Luz MD - 02/15/2020 1587 EDT Neurointerventional Radiology Consult Note Name: Ynes White Reason for Consult: venous sinus thrombosis Summary: 50 y.o. female with history of smoking presenting as transfer with venous sinus thrombosis and lefttemporal ICH. On arrival she had a CTV showing thrombus in the left transverse and sigmoid sinuses extending into the proximal left IJ and some left posterior temporal cortical veins. She was alert and interactive with expressive aphasia; full strength no drift. Exam: Blood pressure 131/63, pulse 95, temperature 37.5 ??C (99.5 ??F), temperature source Axillary, resp. rate 19, height 170.2 cm (67), weight 98.4 kg (217 lb), SpO2 95 %. Labs: Lab Results Component Value Date/Time HCT 47.3 (H) 02/15/2020 03:15 HCT 44.8 (H) 02/14/2020 17:48 HCT 38.2 08/13/2001 16:30 PLT 158 02/15/2020 03:15 PLT 167 02/14/2020 17:48 PLT 227 08/13/2001 16:30 Imaging: I personally reviewed pertinent imaging, including - CT head 02/13 - large left posterior temporal ICH extending superiorly into frontal and parietal operculum. No herniation. No hydrocephalus. CTV 02/13 - occlusion of left transverse sinus and sigmoid sinus, with clot extending down into proximal left IJ. Occlusion of multiple left temporal cortical veins Assessment: 50 y.o. female with venous sinus thrombosis and hemorrhagic infarcts involving the left temporal lobe. Relatively good exam with deficits including expressive aphasia. Endovascular therapy including mechanical thrombectomy is typically used only in patients with poorexam (coma) or patients who progressively deteriorate despite anticoagulation (see Edmar et al 2018). Recommendations: - anticoagulation - hypercoaguable workup - close neuro clinical monitoring - would consider endovascular therapy if she deteriorates while on anticoagulation Cheo Luz MD PhD Neurointerventional Radiologist Pager #[phone] Recommendations discussed with Amber Mayers on 02/14/2020 and with Milind Leon MD on 02/15/2020. Edmar et al. Current endovascular strategies for cerebral venous thrombosis: report of the [facility]IS Standards and Guidelines Committee. J Neurointerv Surg. 2018 Jun;10(8):803-810. documented in this encounter OR Notes * OR Surgeon - Claus Piña MD - 02/16/2020 0000 EDT OPERATIVE REPORT SERVICE DATE: 02/16/2020 PREOPERATIVE DIAGNOSIS: Left intracranial hemorrhage and cerebral edema secondary to venous infarction. POSTOPERATIVE DIAGNOSIS: Left intracranial hemorrhage and cerebral edema secondary to venous infarction. PROCEDURE: Left frontal, temporal and parietal craniectomy, evacuation of intraparenchymal hemorrhage, intraoperative ultrasound. SURGEON: Claus Piña MD [employer] COUNTER CLERK: Haile Brown MD ANESTHESIA: General. INDICATIONS: The [...] of consciousness and ultimately an enlarging left pupil (which occurred after the decision was made for the operating room). Her brother was contacted by telephone and the situation discussed and he gave consent for a decompressive craniectomy with clot evacuation. NARRATIVE: The patient was brought into the operating room and after a checklist was completed, shewas given general anesthesia via endotracheal tube and was positioned supine with a roll under the left shoulder and the head turned to present the left side of the cranium in the Fabian pin headrest. The left side hair had been clipped. She had been given 50 g of mannitol, during the operation was given another 50 g of mannitol after the bone removal. She was being hyperventilated. An arterialline was started. After positioning in the Fabian pin clamp the scalp and hair were prepared withHibiclens, alcohol and DuraPrep and sterilely draped. Local anesthetic was injected along the incision line. We then made a frontotemporal and parietal incision and elevated the scalp flap attached to the temporalis muscle. Hemostasis was achieved and 4 electron beam welding machine operator holes were placed. The craniotome was used to elevate a skull flap, which was subsequently taken off the field for sterile storage. Epidural tack-up sutures were required superiorly for epidural venous bleeding nearer the midline. Thedura itself was tense. There was no initial response to mannitol. We elected to begin a clot removal through a small linear dural incision. We used the ultrasound tolocate where the clot came to the surface in the temporoparietal region, which matched well with our estimation from the surrounding anatomy. We made a 2.5 cm linear incision in the dura from anterior to posterior and entered the brain through the cristina, which was darkly discolored with blood. This portion of the clot was extremely well organized and likely involved pial planes at the back of the sylvian fissure. We did not therefore enter this clot itself, but dissected superior and inferior to it and on the deep side encountered more liquid hemorrhage, which drained very readily. As we drained hemorrhage, the dura relaxed and then we opened the dura more fully in a cruciate fashion. We had used the ultrasound to locate the parietal hemorrhage as well as the anterior temporal hemorrhage. We then proceeded through our small corticectomy to remove more of the hemorrhage by suction. This exploration extended very medially (deeper to the surface), and then took us inferiorly and anteriorlyinto the substance of the temporal lobe and we had thought it likely that we had even reached and drained the anterior temporal hemorrhage. We used the ultrasound on that portion of the temporal lobeand decided that there was no substantial hemorrhage left there, and that this did not require additional corticectomy. Examining the corticectomy site we then dissected our way around this very cohesive lens-shaped clot and we were able to resect it completely. It involved one sylvian artery heading into it, but no venous structures. Hemostasis was then easily achieved in the corticectomy and clot extraction site with Surgifoam powder and then Surgicel, with no undue bleeding seen. The brain now was extremely relaxed. We could readily appreciate the thrombosed vein of Kristen and other cortical veins. There was no hemorrhage at this point and we did consider returning the bone flap to position, but because of the anticipation of further swelling or even rebleed, we elected not to. We placed a layer of Duragen and then closed the scalp over a LUPE drain was exited through a separate site. This was done with 2-0 and 3-0 Vicryl for the muscle fascia and galea and ghassan for the skin. ESTIMATED BLOOD LOSS: Approximately 80 mL. COMPLICATIONS: There were no identified complications. Unless otherwise noted, there were no complications, no blood loss, no cultures obtained, no specimens removed, and no drains retained. Claus Piña MD 02 42 PM / Claus Piña MD ln Confirmation: [id number] Dictation ID: [id number] documented in this encounter ED Notes * Mohit Gutierrez RN - 02/14/20202039 EDT ED MD made aware about pts change in breathing. O2 saturation remains 100% RA. Pt responsive and states she is having a lot of pain. Will continue to monitor. * Mohit Gutierrez RN - 02/14/20201920 EDT Caro (brother) called to get update on pt. Brother was told not much info was able to be provided due to pts altered condition. Brother states he understands the reasoning and would just want to be updated on pt treatment. Brother was told he would be notified per protocol on any changes or updates. Caro (brother): Lucille (sister): * Toni Gilbert MD - 02/14/2020 1800 EDTAssociated Order(s): Critical Care Rosalind Batista, am scribing for Toni Gilbert MD while he/she is personally performing theservice. Rosalind Reyes 02/14/2020 18:00 Ynes White is a 50 y.o. female who presents to the ED with AMS and worsening QUINONES. Per chart review, she was seen at [facility] this morning and had a head CT that was significant for left temporoparietal intracranial hemorrhage and was found to be hypertensive at 170/100. She was referred here for further evaluation. Care and work-up prior to sign out includes a physical exam that was significant for uncomfortable appearance, GCS verbal of 4 (confused), expressive and receptive aphasia. I assumed care of patient from Brayan Plummer MD with lab results, CTA/CTV results, and Neurosurgery recommendations pending. After I assumed care the patient had: The patient had a angio head neck CT which was significant for No significant abnormality of the major intracranial or cervical arterial vasculature. Please refer to dedicated CT venogram for findings of venous infarct and slight increase in intraparenchymal hemorrhage.. Patient had CT that was obtained, reviewed, and interpreted by myself along with a radiologist. Please see radiology report forfurther details. The patient had a head venogram with contrast CT which was significant for venous thrombosis in theleft internal jugular vein, sigmoid and transverse sinus as well as the veins of Trolard and Kristen.Intraparenchymal hemorrhage has increased slightly from prior. Together, these findings are consistent with cerebral venous thrombosis. Stable midline shift. No evidence of herniation. Patient had CTthat was obtained, reviewed, and interpreted by myself along with a radiologist. Please see radiology report for further details. Labs Reviewed COMPLETE BLOOD COUNT AND DIFFERENTIAL - Abnormal Result Value Status WBC 6.92 Final RBC 4.47 Final Hemoglobin 15.1 Final HCT 44.8 (*) Final MCV 100 (*) Final MCH 33.8 (*) Final MCHC 33.7 Final RDW-CV 13.4 Final RDW-SD 49.4 Final PLT 167 Final MPV 10.6 Final Neutrophils 72.7 Final Lymphocytes 21.1 Final Monocytes 3.3 Final Eosinophils 2.0 Final Basophils 0.6 Final Immature Grans 0.3 Final Absolute Neutrophils 5.03 Final Absolute Lymphocytes 1.46 Final Absolute Monocytes 0.23 Final Absolute Eosinophils 0.14 Final Absolute Basophils 0.04 Final Absolute Immature Grans 0.02 Final Type of Differential: Auto Final BASIC METABOLIC PANEL (BMP) - Abnormal Sodium 135 (*) Final Potassium 4.7 Final Chloride 105 Final CO2 Total 26 Final Glucose 107 (*) Final Calcium 8.8 Final Calculated Calcium 9.1 Final BUN 11 Final Creatinine 0.66 Final eGFR 102 Final Patient had labs that were reviewed independently by myself, significant for normal. 1805: Discussed patient's case with neurology, who will review the patient's CT and evaluate. 0: Discussed patient???s case with neurosurgery and neurology, who are recommending a heparin drip. Critical Care Performed by: Toni Gilbert MD Authorized by: Toni Gilbert MD Critical care provider statement: Critical care time (minutes): 30 Critical care start time: 02/14/2020 18:00 Critical care end time: 02/14/2020 18:30 Critical care time was exclusive of: Separately billable procedures and treating other patients andteaching time Critical care was necessary to treat or prevent imminent or life-threatening deterioration of the following conditions: [employer]ELOPER failure or compromise Critical care was time spent personally by me on the following activities: Development of treatmentplan with patient or surrogate, discussions with consultants, evaluation of patient's response to treatment, examination of patient, interpretation of cardiac output measurements, obtaining history from patient or surrogate, ordering and performing treatments and interventions, pulse oximetry, review of old charts and re-evaluation of patient's condition At this time, the patient was hemodynamically stable for admission to neurology under the care of Dr. Amber Greene. 2030: Reevaluated the patient, who is requesting medications for pain management. 2043: Discussed options for pain management with neurology; will give the patient IV tylenol and anadditional 2mg morphine. MDM: 50-year-old female transferred from [facility] I received signout patient has already been diagnosed with an intracranial hemorrhage of unclear etiology. She had a CTA and CTV performed which demonstrated a large cerebral sinus thrombosis. Likely etiology is a venous infarction leading to hemorrhagic transformation. Her mental status continued to have a GCS between 13 and 14 however she did have a great deal of pain in her head. neurosurgery did not think there was an acute surgical need she will be admitted to neurology for continued management. They recommended a heparindrip for management of her thrombus. She will be monitored closely for signs of worsening hemorrhage. Her headache was difficult to control in the emergency department as we do not want to give her heavier doses of sedative medication. She was treated with IV Tylenol and IV morphine per neurology recommendations. I discussed her findings with both her brother and sister over the phone. Final diagnoses: Cerebral venous thrombosis This documentation is recorded by Rosalind Reyes acting as Scribe under the direction and presence of Toni Gilbert MD. Toni Gilbert MD: I personally performed the services recorded by the scribe in my presence. I confirm the scribe's documentation has been reviewed by me to accurately and completely record my work, treatment, procedures, and medical decision making. * Lindy Bean RN - 02/14/2020 1710 EDT Neurosurg resident at bedside. * Priyank Drew - 02/14/2020 1632 EDT TRANSFER: [facility] Ynes White [age]y/o F, w/AMS +QUINONES, , left intraparenchymal hemorrhage and shift, expressive and receptive aphasia, Keppra and Nicardipine Sending zion Ponce * Brayan Plummer MD - 02/14/2020 1626 EDT This patient received an evaluation and medical screening exam for emergent medical conditions at the [facility] on 02/14/2020 Chief Complaint Altered Mental Status HPI Ynes Whtie is a 50 y.o. female with PMH including post concussion syndrome and nicotine dependence who presents to the ED via EMS as a transfer from [facility] for evaluation of altered mental status. Per medical records, she was evaluated at [facility] ED yesterday for a left frontal QUINONES with a negative CT Head at the time. EMS states that her ex-boyfriend discovered her this morning with AMS and a wors ening QUINONES; he subsequently brought her to the [facility] ED. Medical records report that her CT Head theretoday revealed a significant left temporoparietal intracranial hemorrhage and that she was hypertensive there at 170/100. They state that she has been treated with 1g IV Keppra, 4mg IV odansetron, 100mcg IV fentanyl, and was started on a continuous IV drip of nicardipine at 5mg/hr. On arrival to the ED here, she is unable to answer questions. History was provided by: the patient, EMS, and medical records; history is limited secondary to thepatient's altered mental status Patient's pertinent PMH, FH, SH were reviewed and updated PRN. ROS A 10 point review of systems has been performed and is otherwise negative except as noted in the HPI. ROS is limited secondary to the patient's altered mental status. Physical Exam Vital Signs Vitals Reassessment?: Yes Temp: 36.4 ??C (97.6 ??F) Temp src: Oral Pulse: 95 Resp: 19 SpO2: 99 % BP: 131/81 BP Device: BP Machine Physical Exam Constitutional: She appears well-developed and well-nourished. Appears uncomfortable HENT: Head: Normocephalic and atraumatic. Eyes: Pupils are equal, round, and reactive to light. EOM are normal. Neck: Normal range of motion. Neck supple. Cardiovascular: Normal rate. Pulmonary/Chest: Effort normal. Abdominal: Soft. Musculoskeletal: Normal range of motion. Neurological: GCS verbal subscore is 4. Expressive and receptive aphasia. Skin: Skin is warm and dry. Nursing note and vitals reviewed. A medical screening exam was performed. Laboratory Results Labs Reviewed COMPLETE BLOOD COUNT AND DIFFERENTIAL BASIC METABOLIC PANEL (BMP) Data Interpretation None (lab results pending at sign-out) Procedures Procedures Assessment and Plan Patient with PMH including post concussion syndrome and nicotine dependence presents to the ED via EMS as a transfer from [facility] for evaluation of altered mental status. Per medical records, she was evaluated at [facility] ED yesterday for a left frontal QUINONES with a negative CT Head at the time. EMS states that her ex- boyfriend discovered her this morning with AMS and a worsening QUINONES; he subsequently brought her to the [facility] ED. Medical records report that her CT Head there today revealed a significant left temporoparietal intracranial hemorrhage and that she was hypertensive there at 170/100. They statethat she has been treated with 1g IV Keppra, 4mg IV odansetron, 100mcg IV fentanyl, and was startedon a continuous IV drip of nicardipine at 5mg/hr. On arrival to the ED here, she is unable to answer questions. Differential diagnosis includes but is not limited to: Concern for potential worsening brain bleed. The patient's physical exam was significant for: appeared uncomfortable, GCS verbal of 4 (confused), expressive and receptive aphasia. I discussed the patient with Neurosurgery, who will consult. Neurosurgery recommended a CTA Head/Neck and a CTV Head with Contrast, as well as maintaining a blood pressure below 140. The patient's pain was treated with 100mcg IV fentanyl citrate. The patient was signed out to Dr. Gilbert with lab results, CTA/CTV results, and Neurosurgery recommendations pending. Please refer to progress notes. Disposition Signed out (see progress Notes) The patient's pain was managed to an adequate level weighing risk vs. benefit of further medications.At the end of my care of this patient, the patient's pain was 2 on a zero to ten scale. Any further pain treatment will be at the discretion of the provider following up with the patient based on their clinical assessment. Condition at the end of my care of this patient: Stable Scribe attestation: This documentation is recorded by Marcia Carson acting as Scribe under the directionand presence of Brayan Plummer MD. Brayan Plummer MD: I personally performed the services recorded by the scribe in my presence. I confirm the scribe's documentation has been reviewed by me to accurately and completely record my work, treatment, procedures, and medical decision making. documented in this encounter Miscellaneous Notes * Plan of Care - Fredrick Edmond MD - 03/02/2020 1219 EDT Hematology brief note 50 y old F with recent history of cerebral vein thrombosis and also LUE DVT of unclear etiology however with a low protein C that will need to be tested away from the acute setting, who was admitted and started on anticoagulation with unfractionated heparin via drip. Unfortunately clinical course complicated by ICH. She has now restarted therapeutic dose of Lovenox in the last 24 hrs. Possible discharge in the next 24 hrs. PLAN : 1. Please recheck her weight to make sure we are giving her exact dose of Lovenox. 2. Check a low molecular weight heparin level 4 hrs after her third or fourth dose of Lovenox sincedose was increased to therapeutic doses. CBC in one week from discharge. 3. Patient will follow with our [facility] program in around 2 to 4 weeks. Referral already placed. 4. Please do not hesitate to call us back if any further questions or concerns. Kathi Garcia MD Fellow Hematology Oncology [facility] Pager [phone] * Plan of Care - Ebenezer Masters RN - 03/02/2020 4516 EDT Nursing Discharge Note D: Patient noted with discharge orders to: Acute Rehab. A: Prescriptions e-scripted. Reviewed discharge instructions and prescriptions with Patient and Other with POC reviewed during report to receiving RN Belongings collected and sent home with patient. Report called to Rehab 2 [phone] at 1130. R: Patient verbalized understanding of discharge instructions and denied further questions. Transfer of care preformed at the bedside with [facility], helmet in place prior to transfer. 1-1 sitter maintained up until DC. EBENEZER MASTERS RN 03/02/2020 9:47 * Plan of Care - Judith Harrell RN - 03/02/2020 0258 EDT Data: Pt is POD 15 s/p left ruben-craniotomy. Pt is A/O to self with expressive aphasia and impairedthought pattern. 1:1 sitter continued for impulsivity, safety awareness, and fall risk. Action: Administered scheduled medications, tylenol and dilaudid for pain. Q4 neuro assessments, monitored I/Os. Clustered care. Response: Pt currently appears comfortable. Agreeable to wearing helmet during ambulation for safety. Will continue to monitor JUDITH HARRELL RN 03/02/2020 2:59 * Plan of Care - Anjelica Parra RN - 03/01/2020 1713 EDT Problem: Daily Care Plan Goals Goal: Care Plan Documentation Note: Pain Note D - Data: Pt is POD 14 s/p left ruben-craniotomy. Pt is A/O to self with expressive aphasia and impaired thought pattern. 1:1 sitter continued for impulsivity, safety awareness, and fall risk. Action: Administered medications per MAR. Oral tylenol administered for pain. Patient able to rest comfortably after. Validated pts frustrations about impaired communication. R - Denies the need for further intervention. Will continue to assess and treat pain levels as per policy and prn. 03/01/2020 17:08 ANJELICA PARRA RN * Plan of Care - Judith Harrell RN - 03/01/2020 0355 EDT Pain Note D - The patient reported pain. The reported pain location was in her left scalp incision A - Pain was assessed and treated with medication ordered and distractions as per orders and standards of care. The pain management techniques were effective R - Denies the need for further intervention. Will continue to assess and treat pain levels as per policy and prn. 03/01/2020 3:55 JUDITH HARRELL RN * Plan of Care - Anjelica Parra RN - 02/29/2020 1822 EDT Problem: Daily Care Plan Goals Goal: Care Plan Documentation Note: Data: Pt is POD 13 s/p left ruben-craniotomy. Pt is A/O to self with expressive aphasia and impairedthought pattern. 1:1 sitter continued for impulsivity, safety awareness, and fall risk. Pt c/o persisting headache throughout the shift. Action: Administered medications per MAR, bolus tube feeds through PEG. Dilaudid and liquid tylenolfor pain. Patient able to rest comfortably after. Validated pts frustrations about impaired communication Response: Continue to monitor and assess. ANJELICA PARRA RN 02/29/2020 18:22 * Plan of Care - Kathi Aguilar MD - 02/29/2020 6880 EDT Hematology brief note 50 y old F with recent history of cerebral vein thrombosis and also LUE DVT of unclear etiology however with a low protein C that will need to be tested away from the acute setting, who was admitted and started on anticoagulation with unfractionated heparin via drip. Unfortunately clinical course complicated by ICH. As per neurosurgery resident plan was to start full dose AC today however we would have preferred to be with UFH. Since patient already received 90 mg of LMWH this morning we could skip dose tonight and then see how she behaves clinically and then if clinically stable on this intermediate dose of 90 mg of Lovenox daily could start then full dose AC in 24 to 48 hrs. Case discussed with primary team Kathi Garcia MD Fellow Hematology Oncology [facility] Pager [phone] Cosigned by Marce Rosenbaum MD at 02/29/2020 16:00 EDT * Plan of Care - Judith Harrell RN - 02/29/2020 0158 EDT Data: Pt is POD 13 s/p left ruben-craniotomy. Pt is A/O to self with expressive aphasia and impairedthought pattern. 1:1 sitter continued for impulsivity, safety awareness, and fall risk. Action: Administered medications per MAR, bolus tube feeds through PEG. Liquid tylenol for pain Reinforced pt education about helmet use and safety. Validated pts frustrations about impaired communication Response: Pt becoming increasingly restless overnight, PRN dilaudid given for pain and pt now appears to be resting comfortably. JUDITH HARRELL RN 02/29/2020 1:58 * Plan of Care - Michelle Davsi RN - 02/28/2020 1353 EDT Data: POD 12 s/p left ruben-craniotomy. Alert and oriented to self with expressive aphasia and impaired thought pattern. 1:1 sitter continued for impulsivity, safety awareness, and fall risk. Pt occasionally restless, particularly in the legs and c/o pain intermittently in her head. Action: Medications administered per MAR as scheduled and PRN for pain. Feedings administer via PEGtube as scheduled. PO intake encouraged. Hourly checks performed. Response: Pt still demonstrating expressive aphasia, but making notable progress in expressing her needs. Pain appears well-controlled with current regimen. VSS, will continue to monitor and assess. MICHELLE DAVIS RN 02/28/2020 13:54 * Plan of Care - Oliva Gabriel RN - 02/28/2020 0528 EDT Problem: Daily Care Plan Goals Goal: Care Plan Documentation Flowsheets (Taken 02/27/20202021) Area of Focus: Safety Goal This Shift: pt will remain free from falls Note: Data: Assumed care of pt at 1900. Pt is POD 12 s/p left ruben-craniotomy. Pt is alert and oriented to self with expressive aphasia and impaired thought pattern. 1:1 sitter continued for impulsivity, safety awareness, and fall risk. Pt is restless, particularly in the legs and has pain intermittentlyin her head. Action: Administered medications per MAR and feeding per PEG. Oriented pt as needed. Clustered careto promote rest. Utilized one hour safety checks. Response: Pt had difficulty sleeping through the night. Pt continues to be restless, asking for sleeping meds at 0500. Reoriented pt that it is now morning time. Pt expressed frustration d/t inability to sleep soundly. Will continue to monitor. OLIVA GABRIEL RN 02/28/2020 5:21 * Plan of Care - Michelle Davis RN - 02/27/2020 1136 EDT D: POD#11 s/p left ruben-craniotomy. A&Ox1 - expressive aphasia with impaired thought pattern. 1:1 sitter continued. Poor safety awareness and impulsivity. Pt is restless off and on and c/o of intermittent head and thigh pain. A: Medications administered as scheduled per MAR. 1x assist ambulating to bathroom. M6 RN completedNeuro assessments. Hourly safety checks. Nutrition bolus via PEG tube. R: No changes in neuro status. Pt able to rest in between care. 1:[address] Will continue to monitor and assess. * Plan of Care - Alicia Wells RN - 02/27/2020 0510 EDT D: POD#11 s/p left ruben-craniotomy. A&Ox1 - expressive aphasia with impaired thought pattern. 1:1 sitter continued. Poor safety awareness and impulsivity. Restless and c/o head and L thigh pain at start of shift. A: PRN pain medication per MAR. 1 Assist ambulating to bathroom. M6 RN completed Neuro assessments.Hourly safety checks. Nutrition bolus via PEG tube. R: Patient remained free of falls overnight. No changes in neuro status. Able to sleep between care. Will CTM * Plan of Care - Frank Hardwick MD - 02/26/2020 1531 EDT Hematology plan of care Discussed with neurosurgery again, and it seems that since the patient's CTV showing that the cerebral vein thrombosis is better and therefore preferred to hold of on heparin until day 14 which is next Saturday. Will keep following with you to guide AC plan when is time for full AC Frank Hardwick MD PGY4 Hematology/Oncology pager [phone]. * Plan of Care - Michelle Davis RN - 02/26/2020 1203 EDT Data: Patient POD 10 s/p left ruben-craniotomy for evacuation of hematoma from ICH. 1:[address] for safety. Left-sided bone flap, helmet for all OOB activities. Alert and oriented X 1; mild tomoderate aphasia and occasional word salad; right sided weakness. Pt reports pain from 0-5/10, wellmanaged with current regimen. PEG tube in place, pt receiving nutrition and some meds through PEG tube. Also order for dysphagia IV diet. Action: Q4hr neuro checks completed with help of neuro RN. Medications administered as scheduled and PRN for pain. 1:1 sitter at bedside, assisting w/ ambulation (contact guard) to and from bathroom. Response: No changes in neuro status. Patient remains free from falls this shift. Patient oob to bathroom with helmet frequently. Will continue to monitor and assess. MICHELLE DAVIS RN 02/26/2020 12:04 * Plan of Care - Rebecca Martin RN - 02/26/2020 0647 EDT Pain Note D - The patient reported pain. The reported pain location was headache and left thigh pain. Pt oob multiple times to bathroom. Pt did have periods of agitation and attempting to hit people. At times she was able to speak in sentences and make sense. A - Pain was assessed and treated with scheduled Tylenol . The pain management techniques were effective for headache. Her thigh pain continues to bother her. R -. Will continue to assess and treat pain levels as per policy and prn. 02/26/2020 6:48 REBECCA MARTIN RN * Plan of Care - Blanca Winchester RN - 02/25/2020 1646 EDT 02/25/20 pain Data: upon pt's return from head CT, she was moaning, holding her head in her hand and when asked if she had pain, yelled as if her pain was quite significant. Action: administered 4mg dilaudid as per [facility] orders. Response: Rechecked pt about 1 hr later, despite pt's severe expressive aphasia, pt stated her painwas still there, but better. Pt was not moaning, and no longer stiff appearing in her bed. BLANCA WINCHESTER RN 02/25/2020 16:46 * Plan of Care - Rebecca Martin RN - 02/25/2020 0647 EDT Data: OOB to bathroom numerous times during night time nanny to void. Pt slept in short naps. She had periods where she would cry out and appear to be agitated. Sitter at bedside at all times and would help pt calm down. Tylenol for headache with good results. REBECCA MARTIN RN 02/25/2020 6:47 * Plan of Care - Gema Bhatti RN - 02/24/2020 1401 EDT Problem: Daily Care Plan Goals Goal: Care Plan Documentation Flowsheets (Taken 02/24/2020 0830) Area of Focus: Neuro Status Goal This Shift: No changes in neuro status Data: Patient POD 8 s/p ruben-craniotomy for evacuation of hematoma from ICH. Patient is alert and oriented X 1. + Aphasia. Patient is pleasant throughout shift. Agreeable to ADLs. Right sided weakness. Impulsive. Frequently attempting to get oob. Patient is a Contact guard to recliner. Patient withleft sided bone flap. Incision c/d/I. Helmet with all oob activity. Action: Neuro VS Q 4 hours. 1 : 1 at bedside for patient safety. Frequently assessed patient's discomfort. Tylenol and Dilaudid for headache. Patient able to make basic needs known. Reyes D/C at 0930. Due to void at 1530. Response: No changes in neuro status. Patient remained free from falls this shift. Patient oob to recliner with helmet frequently. Will continue to monitor and intervene as needed. GEMA BHATTI RN 02/24/2020 14:04 * Plan of Care - Rebecca Martin RN - 02/23/2020 2115 EDT Falls Note D - Patient had a witnessed fall in her room. Patient was sitting edge of bed and suddenly bolted oob. The sitter attempted to hold her upright but was unable to. Patient was gently lowered onto her left knee then she placed her right knee on the floor. She was then helped up and back to bed. Patient did not have a loss of consciousness and did not have trauma to her head. A - Vital signs assessed, provider notified and correction officer supervisor notified. R - Patient Vitals for the past 2 hrs: Temp Resp 02/23/202035 37 ??C (98.6 ??F) 16 The patient is on Level II fall precautions. Sitter at bedside. Sitter is aware to call if pt attempts oob. 02/23/2020 21:15 REBECCA MARTIN RN * Plan of Care - Gema Bhatti RN - 02/23/2020 1653 EDT Problem: Daily Care Plan Goals Goal: Care Plan Documentation Flowsheets (Taken 02/23/2020 1306) Area of Focus: Neuro Status Goal This Shift: No changes in neuro status Data: Patient POD 8 s/p ruben-craniotomy for evacuation of hematoma from ICH. Patient is alert and oriented X 1. + Aphasia. Right sided weakness. Impulsive. Frequently attempting to get oob. Patient is a two assist oob to recliner. Patient with left sided bone flap. Incision c/d/I. Helmet with all oob activity. Action: Neuro VS Q 4 hours. 1 : 1 at bedside for patient safety. Frequently assessed patient's discomfort. Tylenol and Dilaudid for headache. Patient able to make basic needs known. Response: No changes in neuro status. Patient remained free from falls this shift. Patient oob to recliner with helmet frequently. Will continue to monitor and intervene as needed GEMA BHATTI RN 02/23/2020 16:55 * Plan of Care - Spencer Fair RN - 02/23/2020 5832 EDT Problem: Daily Care Plan Goals Goal: Care Plan Documentation Outcome: Met This Shift Flowsheets (Taken 02/22/2020 8035) Area of Focus: Safety Goal This Shift: keep patient free from injury Note: Data: Patient transferred from SICU overnight, and assumed care of patient around 2345. Is POD 7 s/p ruben-craniotomy for evacuation of hematoma from ICH. Has aphasia with some improvement, memory impairment, and non-sensible speech. Seems to be oriented to self, but needs frequent reorientation to why she is here. There is left sided weakness. Has been impulsive and quick to try to sit up or get out of bed. Helmet ordered when up out of bed. Is heavy 2-3 assist with transfer to the commode overnight. Per orders patient is on dysphagia 2 diet with thin liquids, Does have peg tube with 4 x daily bolus TF. Calorie count ordered. Action: 1:1 sitter and bed alarm on. Call farris within reach, and bed in lowest position. HOB all the way up when drinking water or taking pills. Vital signs and neuro assessment every four hours. Neurology RN following up with neuro exams. Monitoring that patient is repositioning self in bed every two hours. Check residual in peg tube as ordered. Response: Patient remains free from injury this shift. Still very impulsive and confused, and continues need for 1:1 sitter. Vital signs stable. Neuro assessment stable. Tolerated swallowing water without any cough. Patient very active in bed overnight and repositioning self frequently. Skin integrity maintained. SPENCER FAIR RN 02/23/2020 4:32 * Plan of Care - Francheska Walker RN - 02/22/2020 0699 EDT Problem: Daily Care Plan Goals Goal: Care Plan Documentation Outcome: Ongoing Flowsheets Taken 02/21/20201999 by Kendra Yousif RN Area of Focus: Neuro Status Taken 02/22/2020 1943 by Francheska Walker, AZALEA Goal This Shift: Monitor neuro status. Note: Data: Pt POD6 s/p L crani for evacuation. Pt A&Ox1, globally aphasic, though showing improvement. PERRLA, strength L>R. No L bone flap. VSS, SBP 140s. Pt verbalizes pain by endorsing with yes no questions, localizing to head. Action: Q2 neuro checks. Acquired helmet to optimize mobilization. Medicated pt for pain (see eMAR). Requested calorie count and encourage PO intake for healing. Response: Pt verbalization increased when frustrated. Pain medication helpful for restlessness and BP. NVS and Stroke VS consistent throughout shift. PO intake very poor. FRANCHESKA WALKER RN 02/22/2020 19:43 Problem: Pressure Ulcer Prevention Goal: Absence Of Pressure Ulcer Outcome: Ongoing Note: Skin intact, incision clean. Mepilex in place. Pt turns self, usually to right side. Problem: High Fall Risk: Goal: Patient will Remain Free of Falls due to Altered Mobility Outcome: Ongoing Note: Pt drowsy this shift, but ready to stand when restless. Weak in R leg, seems to buckle. Helmet available so should facilitate increased mobility practice. Problem: Safety: Description Module scope: For the purpose of this module, the definition for restraint comes from the Medicare and Medicaid Programs; Hospital Conditions of Participation. A restraint is any manual, physical, ormechanical device, material, or equip ... Goal: Complications related to restraint use will be avoided or minimized Outcome: Completed * Plan of Care - Kendra Yousif RN - 02/22/2020 0224 EDT Problem: Daily Care Plan Goals Goal: Care Plan Documentation Outcome: Ongoing Flowsheets (Taken 02/21/20201999) Area of Focus: Neuro Status Goal This Shift: q2hr neuro checks overnight report changes Note: Data: Patient s/p left hemicraniectomy and hematoma evacuation on 02/16/20. Ynes's speech remainsaphasic but she is able to speak some short sentences she answers im doing fine and will say hello, and answers yes/no when asked if she is having pain. Obeys simple commands and moves all extremities. Left eye swollen. [place] to left crani site C/D/I open to air with no drainage. BP within goalof <140mmhg majority of the night. Afebrile and in NSR. Continues to have constant observer at bedside Action: Medicated with PRN dilaudid for c/o pain which she would state repeatedly please it hurtsRepositions self frequently in bed. Care clustered to promote periods of rest. Neuro check done Q2hrs 2345 Na 146 Neurosurg informed and 3% Nacl d/c. K 3.3 and was repleted. Repeat K 3.9. NA 137 3% Sodium chloride restarted at 20mls/hr see eMAR Response: Neuro status remains stable, VSS, sodium chloride 3% infusing at 20mls/hr will continue to monitor KENDRA YOUSIF RN 02/22/2020 2:23 * Plan of Care - Carol Ash RN - 02/21/20201757 EDT Problem: Daily Care Plan Goals Goal: Care Plan Documentation Outcome: Ongoing Flowsheets (Taken 02/21/20201750) Goal This Shift: stable or improving neuro status Note: Data: DOWNS, PERRLA, follow commands with some hesitation, answers y/n questions, speaks in short sentences, some word salad, repositions self frequently, goal SBP <140, peg tube clamped, reyes Action: Medicated to maintain goal SBP and for abdominal pain. Encouraged PO intake, poor appetite.500cc 3% NS started. 1:1 sitter for safety, patient with no situational awareness. Response: Stable neuro exam, awake for long periods of time. CAROL ASH RN 02/21/2020 17:53 * Plan of Care - Kendra Yousif RN - 02/21/2020 6916 EDT Problem: Daily Care Plan Goals Goal: Care Plan Documentation Outcome: Ongoing Flowsheets (Taken 02/21/2020330) Area of Focus: Neuro Status Goal This Shift: monitor neuro status and report changes Note: Data: Assumed care of patient at 1900 from day shift nurse Carol. Patient alert, speech is aphasicand patient randomly speaks in short sentences, moves all extremities, right side weaker than left.Patient obeys commands and does require demonstration by examiner at times to complete tasks (raising both arms, smiling) . Withdraws to pain in all extremities. PERRL. Left craniectomy incision withstaples C/D/I. Patient is Afebrile and in NSR no ectopy noted. R/A with Spo2 >92%. Tolerating dysphagia 2 diet with nectar thick liquid, able to feed self with good set up, no N/V noted. Left peg tube clamped. Constant observer at bedside Action: Neuro checks done [id number] overnight, care clustered to promote periods of rest. Patient repositioned Q2hrs to preserve skin integrity and prevent break down. Medicated with PRN dilaudid and tylenol for pain see eMAR. PRN hydralazine and Labetalol given for SBP>140mmhg see eMAR Response: Neuro status remains unchanged, VSS SBP within goal will continue to monitor patient KENDRA YOUSIF RN 02/21/2020 3:31 * Plan of Care - Ely, AZALEA Lima - 02/20/2020 0608 EDT Problem: Daily Care Plan Goals Goal: Care Plan Documentation Outcome: Ongoing Flowsheets (Taken 02/19/2020 0800 by Diogenes?ORitika RN) Area of Focus: Neuro Status Goal This Shift: Monitor for neuro changes Data: assumed care at 1900 from day Ritika TRISTAN. Pt resting in bed, 1:1 sitter at bedside. Neuros changed to Q2 overnight. Action: Report received, alarm parameters reviewed and set, assumed care of patient. Plan to continuously monitor hemodynamics, neuro, cardiovascular, respiratory, GI/ status. Provide treatment forpain/anxiety & support for patient/family. Clustered care where able. 2000 - assessed, HS bath, teeth brushed and repositioned. 0345 - pt scoring on non-verbal pain scale, medicated for pain. Response: pt's neuro exam remains stable. Moves all extremities and follows commands (sometimes needs example from RN to complete task). Aphasic at times but randomly will complete short sentences, ouch, that hurts more ice please. Will continue to monitor. NIKI GRAVES RN 02/20/2020 6:08 * Plan of Care - Frank Hardwick MD - 02/19/2020 1425 EDT Hematology follow up Reviewed thrombophilia workup so far, patient could have Protein C deficiency with this level of 51%, but it is very hard to interpret in the setting of an acute thrombotic event has acute thrombosison its own is able to reduce the level of protein C. This will need to be repeated later after resolution of the acute event for better interpretation. Cardiolipin IgM is also mildly elevated which will need to be repeated as well. Lupus anticoagulantis still pending. Beta-2 glycoprotein is negative. Patient has been improving she is extubated and working with physical therapy, we will definitely need to start therapeutic anticoagulation as soon as possible from neurosurgery standpoint. Meanwhile our recommendation is to switch from unfractionated heparin to low molecular weight heparin with Lovenox subcu 40 daily, as it is associated with lower risk of bleeding and lower risk of HIT. Frank Hardwick MD PGY4 Hematology/Oncology pager [phone]. * Plan of Care - Diogenes?Ritika Stout RN - 02/19/2020 1037 EDT Problem: High Fall Risk: Goal: Patient [...] Falls due to Confusion Outcome: Ongoing Problem: SKIN INTEGRITY Goal: Skin integrity will improve or be maintained Outcome: Ongoing Problem: Pressure Ulcer Prevention Goal: Absence Of Pressure Ulcer Outcome: Ongoing Problem: Daily Care Plan Goals Goal: Care Plan Documentation Outcome: Ongoing Problem: Safety: Description Module scope: For the purpose of this module, the definition for restraint comes from the Medicare and Medicaid Programs; Hospital Conditions of Participation. A restraint is any manual, physical, ormechanical device, material, or equip ... Goal: Complications related to restraint use will be avoided or minimized Outcome: Ongoing Problem: High Fall Risk: Goal: Patient will Remain Free of Falls due to Altered Mobility Outcome: Ongoing Problem: Sensory: Goal: Ability to compensate for vision loss will be supported Outcome: Ongoing Data: Alarms reviewed. Fall risk assessment score=20 Teja score=14. Received pt at 0700, eyes open, PERRL, speech hoarse and raspy, some nonsense words but generally follow commands. Tele NSR, afebrile. BP via cuff within parameters. On 2L via NC, lung sound fine crackles. Reyes in place drainingclear yellow urine. Placed Mepilex back/bottom for skin protection. PIV's patent. + 1 generalized edema. Extremities warm. Incision to head is clean, dry, intact with ghassan in place. Action: Continue to monitor for changes in neuro status, labs, tele, VS monitored, resp status. Daily weight, pain management and effectiveness of prn medications per MAR, cluster care to promote rest periods, update pt/family plan of care and orient frequently to surroundings/call farris system. Waiting for speech therapy for for nutritional recommendations. PEG tube draining. BLE SCDs in place, HOB elevated >30 to maximize respiratory effort. frequent oral care offered. Enc. [place] with ADLs. Consults in place: PT.OT. Critical care. Notify HO of abnl. Fall risk plan- falling star posted, bed alarm on. Response: 0900 Pt's boyfriend called to speak on speaker phone with patient 1015 Standing at bedside with RN and PT 1045 RATING CLERK at bedside assessing patient's swallow Lab Results Component Value Date NA 144 02/19/2020 K 3.0 (L) 02/19/2020 CL 109 02/19/2020 CO2 29 02/19/2020 * Plan of Care - Niki Graves RN - 02/19/2020 0227 EDT Problem: Daily Care Plan Goals Goal: Care Plan Documentation Outcome: Ongoing Flowsheets (Taken 02/19/2020226) Area of Focus: Neuro Status Goal This Shift: stable neuro exam overnight. Data: assumed care at 1900 from day RN. Pt intubated and sedated upon initial assessment. POD 2-3 from emergent crani and clot removal. Action: Report received, alarm parameters reviewed and set, assumed care of patient. Plan to continuously monitor hemodynamics, neuro, cardiovascular, respiratory, GI/ status. Provide treatment forpain/anxiety & support for patient/family. Hourly neuros, Q2 turns. 2030 - HS cares, turned. Pt nodding yes to pain, MD called for PRNs. Mouth care done. Q8 labs drawn. Assisted with turn using left side. 0000 - reassessed and repositioned. Nods yes to pain, mouth care done. 0200 - pt anxious and pulling at restraints. Very difficult to complete mouth care as pt thrashing head back and forth. Sedation increased for pt safety. 0300 - pt following commands on left side and RUE, unable to wiggle toes on RLE to command but moves leg. 0445 - ACS at bedside for post procedure check. OK to start tube feeds around 1400, bolster around site to stay on for 48 hours total (can be removed 1400 on 02.19). 0500 - CPAP trial started. Pt VERY anxious, pulling at restraints and thrashing in bed. Attempting to sit up and gagging on tube. precedex gtt increased with lots of reassurance. Lasted ~45 minutes without thrashing and pulling at restraints. Nodding yes to pain. 0650 - extubated to NC without issue. Unable to produce cough or state name but continues to followcommands. Response: pt's neurological status waxes and wanes overnight. Right pupil consistently reactive to light, unable to see left pupil due to orbital swelling. Occasionally will answer yes/no questions. DOWNS x 4 - left upper & left lower more consistently to command compared to right upper and right lower. NIKI GRAVES RN 02/19/2020 2:27 * Plan of Care - Diogenes?Ritika Stout RN - 02/18/2020 0853 EDT Problem: High Fall Risk: Goal: Patient [...] Falls due to Confusion Outcome: Ongoing Problem: SKIN INTEGRITY Goal: Skin integrity will improve or be maintained Outcome: Ongoing Problem: Pressure Ulcer Prevention Goal: Absence Of Pressure Ulcer Outcome: Ongoing Problem: Daily Care Plan Goals Goal: Care Plan Documentation Outcome: Ongoing Problem: Safety: Description Module scope: For the purpose of this module, the definition for restraint comes from the Medicare and Medicaid Programs; Hospital Conditions of Participation. A restraint is any manual, physical, ormechanical device, material, or equip ... Goal: Complications related to restraint use will be avoided or minimized Outcome: Ongoing Problem: High Fall Risk: Goal: Patient will Remain Free of Falls due to Altered Mobility Outcome: Ongoing Data: Alarms reviewed. Fall risk assessment score=21 Teja score=13 . Received pt at 0700, eyes open to pain with off sedation, right pupils is reactive at 4, unable to assess left pupil due to eye swollen shut. Does not follow but able to move all extremities, more on left side than right side. Tele NSR, afebrile. BP via cuff within parameters, PRN BP meds to keep SBP between 100-140. On vent, 2 1% and 5 of PEEP. Lung sounds clear. Reyes in place draining clear yellow, green tinted urine. Placed Mepilex back/bottom for skin protection. PIV's patent. + 1 generalized edema. Extremities warm. Q2 hour turns Action: Continue to monitor for changes in neuro status q 1 hour, labs, tele, VS monitored, resp status. Daily weight, pain management and effectiveness of prn medications per MAR, cluster care to promote rest periods, update pt/family plan of care and orient frequently to surroundings/call farris system. Tube feeds off for PEG placement today, BLE SCDs in place, HOB elevated >30 to maximize resp iratory effort and for neuro. frequent oral care offered. Fall risk plan- falling star posted Response: 0800 MD rounds 1007 Neurology team at bedside assessing patient 1315 PEG tube set up started Lab Results Component Value Date NA 141 02/18/2020 K 3.6 02/18/2020 CL 112 (H) 02/18/2020 CO2 25 02/18/2020 * Plan of Care - Gayla Wyatt RN - 02/18/2020 0601 EDT Problem: Daily Care Plan Goals Goal: Care Plan Documentation Outcome: Ongoing Flowsheets (Taken 02/17/20201999) Area of Focus: Neuro Status Goal This Shift: stable to improved neuro exam Data: Pt is POD#1-2 s/p L crani and evacuation of hematoma. Off sedation, pt opens eyes spontaneously, moves all extremities spontaneously strongly on L, minimally on R. Consistently localizes on L side, w/draws on R. Regards but does not follow commands. Is intermittently able to mimic on DEIRDRE. Unable to assess L eye d/t periorbital edema but R eye 4mm round, briskly reactive. Action: Continue q1h pupil checks and q4h neuro checks with sedation paused. Maintain sedation for RASS-2. Treat HTN and pain as needed. Turn q2h to maintain skin integrity. Response: Neuro status stable. Still hypertensive despite administration of hydralazine so PRN labetalol added. CTM. GAYLA WYATT RN 02/18/2020 6:02 * Plan of Care - Marifer Boss RN - 02/17/2020 1852 EDT Data: Pt is POD 2 s/p left craniectomy for intercranial bleed and thrombosis. See data flowsheets for assessments, meds and care. Action: CT-A today. Hourly pupil and neuro checks, q2 turns, titrating propofol to RASS -2, 3% NaClchanged to Na Acetate this evening, TFs changed to Impact Peptide 1.5 and was advanced to goal. Response: PERRL throughout shift, but left flap increasingly full extending to left orbit, which isnow difficult to open to visualize pupil. Pt localizing RUE and w/d to RLE. Continues to move left extremities strongly and this evening, purposely, but nothing to commands. MARIFER BOSS RN 02/17/2020 18:54 * Plan of Care - Frank Hardwick MD - 02/17/2020 1111 EDT Hematology plan of care: This is a case of a 50 yo female patient smoker who presented for cerebral vein thrombosis and was found to have cerebral hemorrhage as well, patient was also found to have segmental PE and LUE DVT, concerning for a thrombotic state of unknown etiology at this point. Patient was started on heparin gtt and then her bleeding expanded requiring urgent craniotomy. Patient today day #1 s/p craniotomy and hematoma evacuation. Remains intubated. Assessed by IR who would consider thrombectomy if thrombosis expands. The reason why this patient is having this massive thrombotic state is not clear right now, malignancy is not obvious on her CT chest abdomen and pelvis, her CBC is normal not concerning for a MPN. APLS is high on the differential diagnosis but workup remains pending. Will continue to follow. -We don't recommend IVC filter at this point since she has no lower extremity or pelvic DVT -Need to discuss with neurosurgery appropriate timing to start prophylactic anticoagulation at least for now. Thank you for allowing us to participate in this patient's care, will continue to follow with you Frank Hardwick MD PGY4 Hematology/Oncology pager [phone]. Cosigned by Evin Maria MD at 02/17/2020 16:32 EDT * Plan of Care - Gayla Wyatt RN - 02/17/2020 0329 EDT Problem: Daily Care Plan Goals Goal: Care Plan Documentation Flowsheets (Taken 02/16/20201999) Area of Focus: Neuro Status Goal This Shift: monitor/maintain stable neuro status Data: Pt is POD#0-1 s/p emergent craniotomy and hematoma evacuation following acutely worsening neuro status and CT scan. Pt now intubated, sedated on propofol. PERRL. Off sedation at 1999, pt is w/drawing to pain in all 4 extremities, L>R, not following, not opening eyes. Action: Q1h pupil checks, q4h full neuro checks w/sedation paused. Response: Pt neuro status improving throughout the night. @0000 pt localizes in BUEs, L more briskly than R, w/draws in BLEs, opens eyes to voice. Still not following commands, not tracking. @0400 pt is tracking/able to focus when her name is said, localizes in BUEs, L more brisk that R, w/draws RLE, moves LLE spontaneously. Questionably following commands intermittently. 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 Brain well relaxed following clot evacuation Complications: None Anesthesia: General EBL: 150cc IV Fluids: 1500cc IVF, 50g mannitol Urine Output: 1200cc Culture/Specimen: Bone flap to freezer (future tack up holes drilled) Drain/Implant: Subgaleal LUPE drain Skin: Ghassan Disposition: SICU, intubated Plan: q1 hour pupil checks, q4 neuro exams SBP <140 Remain intubated, sedated for now Hold any anticoagulation at this point Non-contrast head CT this evening, repeat CTV tomorrow/ to assess for clot propagation Possible neuro IR intervention if further propagation of clot Appreciate hematology recommendations - LE DVT ultrasound, plan for IVC filter if positive Appreciate SICU assistance Haile Brown MD Neurosurgery Resident 02/16/2020 13:39 Pager [phone] * Plan of Care - Frank Hardwick MD - 02/16/2020 1234 EDT Hematology follow up note: Patient unfortunantely had a worsening of her bleeding overnight requiring surgical intervention today. Primary team discussed with IR today and plan for thrombectomy if patient's surgical procedure is uneventful, and we agree that is the appropriate intervention at this point especially that the patient can not be restarted on full dose anticoagulation for some time now. In regards to her PE, would recommend obtaining a doppler US of lower extremities when possible today, and if patient has a DVT an IVC filter is recommended while waiting to resume full dose AC. IF no DVT then IVC filter might no add much benefit. Frank Hardwick MD PGY4 Hematology/Oncology pager [phone]. * Plan of Care - Ernst Franco RN - 02/16/2020 0612 EDT BP 125/85 Pulse 95 Temp 37 ??C (98.6 ??F) (Oral) Resp 23 Ht 170.2 cm (67) Wt 98.4 kg (217 lb) SpO2 95% BMI 33.99 kg/m?? Data: See docflow Action: Pt is drowsy throughout shift. Stroke neuro assessment monitored q1. SBP goal < 140, nicardipine gtt restarted. Heparin gtt therapeutic with am labs. Tylenol given crushed in applesauce, tolerated well. Repeat head CT done, results pending. Response: Pt resting comfortably at this time. Bed alarm on, will continue to monitor. ERNST FRANCO RN 02/16/2020 6:12 * Plan of Care - Marifer Boss RN - 02/15/2020 1911 EDT Data: See Data Flowsheets for assessments, meds and care. Pt began shift w/ garbled speech, unable to put a logical sentence together and unable to do stroke neuro exam sheets at all. Can say first name only. Action: To CT today. Q1 h Stroke neuro checks. Response: Occasionally able to put a sentences together such as, Can you help me out?. Slight RUEand RLE drift. Doesn't often follow commands without prompting or demonstration etc. MARIFER BOSS RN 02/15/2020 19:12 * Plan of Care - Frank Hardwick MD - 02/15/2020 1032 EDT Hematology consult note: Due to the COVID-19 pandemic, and by the recommendations from the [facility] to minimize possible patients and providers exposure will reserve direct patient interactions toextremely urgent cases, otherwise will attempt to provide our recommendations to the primary team after careful review of the chart and thorough discussion with the primary team. Assessment: This is a case of a 50 years old female patient with past medical history of postconcussion syndrome who presented from [facility] as a direct transfer due to concern of temporoparietal intracranial hematoma with cerebral venous thrombosis. According to the primary team the patient is completely aphasic and altered and was not able to deliver an appropriate history. It seems that she was evaluated on Saturday at [facility] for left frontal headache, however her CT head was negative so patient was discharged home. On Saturday morning the patient was found to be altered and complaining of headache so she was brought again to [facility] where her CT head this time demonstratedconcern for temporoparietal intracranial hemorrhage and her blood pressure was 170/100. The patientthen was transferred to [facility] for further evaluation. Here, she got a CT venogram which showed venous thrombosis in the left internal jugular vein, the sigmoid and transverse sinuses associated with intraparenchymal hemorrhage with no evidence of herniation with stable midline shift. Patient used to take hormone replacement therapy (estradiol-norethindrone) but according to her family medicine has been discontinued. And the patient's family denied any family history of clots. Kye seems to have from liver cancer. The other risk factors identified for clotting disorders were the patient's BMI and smoking history. Patient was admitted to the ICU with every hour neuro checks and repeat CT head which so far has been showing stability of the hematoma while on therapeutic heparin that was also started last night. Patient is also on a nicardipine drip to maintain her blood pressure less than 140. CT chest done today showed also evidence of segmental PE. This extensive thrombotic presentation isconcerning for malignancy but also for Anti- Phospholipid Syndrome especially in a women in her 50s is high on the differential diagnosis . Cardiolipin antibody was sent but LAC and Beta 2 Glycoprotein need to be ordered as well. Antithrombin def is less likely as a therapeutic heparin level was achieved rapidly , Factor V leiden has low utility at this stage as it does not affect management, however it was send by primary team and result is still pending. Finally in patients with Cerebral vein thrombosis neurophthalmology consult is essential to make sure she has no papilledema as this might require, if it does not improve with AC optic nerve fenestration to relieve the pressure and prevent visual loss. Also IR evaluation is warranted to evaluate for possible thrombectomy Recommendations: -Neuroophthalmologic consult for urgent slit lamp exam -Add doppler US upper and lower extremity to assess for clot burden -CT abdomen pelvis pending and helpful to R/O malignant process -Will send LAC and Beta 2 Glycoprotein as well -ECHO in the setting of PE to R/O RV strain -IR consult to assess for thrombectomy -Frequent neuro checks and low threshold for repeating CT head if change in neuro exam -Thank you for involving us in this patient's care will continue to follow with you. This case was discussed with Cosigned by Evin Maria MD at 02/15/2020 16:57 EDT * Plan of Care - Aletha Renner RN - 02/14/2020 2241 EDT Problem: Daily Care Plan Goals Goal: Care Plan Documentation Outcome: Met This Shift Flowsheets (Taken 02/14/20202199) Area of Focus: Neuro Status Goal This Shift: Monitor for changes Data: Pt admitted to SICU from ED after transfer from [facility] for hemorrhagic stroke; CT in ED showed multiple thrombi, pt started on heparin. Neuro exam at admission: Markedly aphasic both expressive and receptive, unable to repeat words or phrases, unable to identify objects requires multiple prompts and assistance to follow prompts; MAEE and with purpose, PERRL. Action: Perform hourly neuro checks to monitor for changes. Response: 2230: Per Neurology resident will do repeat head CT at midnight to monitor bleed. Monitor heparin level with q6 checks. 0120: Pt noted to have sinus arhythmia; MD notified by alpha page. 0130: Pt vomited large amount of clear fluid onto floor over side rail (spot on floor about 3-4 feet in diameter). MD notified, compazine ordered, MD to bedside to evaluate. EKG ordered. 0200: Order received for stat head CT. documented in this encounter Plan of Treatment Upcoming Encounters Date Type Department Care Team (Late st Contact Info) Description 03/04/2025 14:00 EDT Telemedicine [facility] [address] [place] [address] Brayan Polk MD [address] [facility] [address] [place] [phone] 07/14/2025 14:30 EDT Office Visit [facility] Hematology & Oncology - [facility] [address] [place] [address] Evin Maria MD [address] [facility] [address] [place] [phone] documented as of this encounter Procedures Procedure Name Priority Date/Time Associated Diagnosis Comments ECG REPORT - SCANNED 03/04/2020 11:56 EDT ECG REPORT - SCANNED 03/04/2020 11:56 EDT POCT GLUCOSE, INTERFACED Routine 020 12:25 EDT MYELOPROLIFERATIVE NEOPLASM, JAK2 V617F W REFLEX Routine 03/02/2020 11:41 EDT POCT GLUCOSE, INTERFACED Routine 020 6:55 EDT PTT Routine 03/02/2020 6:12 EDT PROTIME Routine 03/02/2020 6:12 EDT COMPLETE BLOOD COUNT Routine 03/02/2020 6:12 EDT BUN Routine 03/02/2020 6:12 EDT PHOSPHORUS Routine 03/02/2020 6:12 EDT MAGNESIUM Routine 03/02/2020 6:12 EDT CREATININE Routine 03/02/2020 6:12 EDT ELECTROLYTES Routine 03/02/2020 6:12 EDT POCT GLUCOSE, INTERFACED Routine 020 20:41 EDT POCT GLUCOSE, INTERFACED Routine 020 17:21 EDT POCT GLUCOSE, INTERFACED Routine 020 11:16 EDT POCT GLUCOSE, INTERFACED Routine 020 8:44 EDT PTT Routine 03/01/2020 5:25 EDT PROTIME Routine 03/01/2020 5:25 EDT COMPLETE BLOOD COUNT Routine 03/01/2020 5:25 EDT BUN Routine 03/01/2020 5:25 EDT PHOSPHORUS Routine 03/01/2020 5:25 EDT MAGNESIUM Routine 03/01/2020 5:25 EDT CREATININE Routine 03/01/2020 5:25 EDT ELECTROLYTES Routine 03/01/2020 5:25 EDT POCT GLUCOSE, INTERFACED Routine 020 20:54 EDT POCT GLUCOSE, INTERFACED Routine 020 16:42 EDT ECG REPORT - SCANNED 02/29/2020 12:52 EDT POCT GLUCOSE, INTERFACED Routine 020 11:12 EDT POCT GLUCOSE, INTERFACED Routine 020 8:12 EDT PTT Routine 02/29/2020 6:39 EDT PROTIME Routine 02/29/2020 6:39 EDT COMPLETE BLOOD COUNT Routine 02/29/2020 6:39 EDT BUN Routine 02/29/2020 6:39 EDT PHOSPHORUS Routine 02/29/2020 6:39 EDT MAGNESIUM Routine 02/29/2020 6:39 EDT CREATININE Routine 02/29/2020 6:39 EDT ELECTROLYTES Routine 02/29/2020 6:39 EDT POCT GLUCOSE, INTERFACED Routine 020 20:40 EDT POCT GLUCOSE, INTERFACED Routine 020 17:06 EDT POCT GLUCOSE, INTERFACED Routine 020 12:11 EDT POCT GLUCOSE, INTERFACED Routine 020 8:12 EDT PTT Routine 02/28/2020 5:49 EDT PROTIME Routine 02/28/2020 5:49 EDT COMPLETE BLOOD COUNT Routine 02/28/2020 5:49 EDT BUN Routine 02/28/2020 5:49 EDT PHOSPHORUS Routine 02/28/2020 5:49 EDT MAGNESIUM Routine 02/28/2020 5:49 EDT CREATININE Routine 02/28/2020 5:49 EDT ELECTROLYTES Routine 02/28/2020 5:49 EDT POCT GLUCOSE, INTERFACED Routine 020 21:34 EDT POCT GLUCOSE, INTERFACED Routine 020 17:33 EDT POCT GLUCOSE, INTERFACED Routine 020 11:54 EDT POCT GLUCOSE, INTERFACED Routine 020 8:32 EDT PTT Routine 02/27/2020 5:45 EDT PROTIME Routine 02/27/2020 5:45 EDT COMPLETE BLOOD COUNT Routine 02/27/2020 5:45 EDT BUN Routine 02/27/2020 5:45 EDT PHOSPHORUS Routine 02/27/2020 5:45 EDT MAGNESIUM Routine 02/27/2020 5:45 EDT CREATININE Routine 02/27/2020 5:45 EDT ELECTROLYTES Routine 02/27/2020 5:45 EDT POCT GLUCOSE, INTERFACED Routine 21:20 EDT POCT GLUCOSE, INTERFACED Routine 020 16:52 EDT POCT GLUCOSE, INTERFACED Routine 020 11:52 EDT PNH, PI-LINKED AG, B Add-On 02/26/2020 7:51 EDT PTT Routine 02/26/2020 7:51 EDT PROTIME Routine 02/26/2020 7:51 EDT COMPLETE BLOOD COUNT Routine 02/26/2020 7:51 EDT BUN Routine 02/26/2020 7:51 EDT PHOSPHORUS Routine 02/26/2020 7:51 EDT MAGNESIUM Routine 02/26/2020 7:51 EDT CREATININE Routine 02/26/2020 7:51 EDT ELECTROLYTES Routine 02/26/2020 7:51 EDT POCT GLUCOSE, INTERFACED Routine 020 21:34 EDT POCT GLUCOSE, INTERFACED Routine 19:15 EDT POCT GLUCOSE, INTERFACED Routine 020 17:[address] HEAD VENOGRAM W CONTRAST Routine 02/25/2020 12:41 EDT POCT GLUCOSE, INTERFACED Routine 7:40 EDT PTT Routine 02/25/2020 6:18 EDT PROTIME Routine 02/25/2020 6:18 EDT COMPLETE BLOOD COUNT Routine 02/25/2020 6:18 EDT BUN Routine 02/25/2020 6:18 EDT PHOSPHORUS Routine 02/25/2020 6:18 EDT MAGNESIUM Routine 02/25/2020 6:18 EDT CREATININE Routine 02/25/2020 6:18 EDT ELECTROLYTES Routine 02/25/2020 6:18 EDT POCT GLUCOSE, INTERFACED Routine 020 21:00 EDT POCT GLUCOSE, INTERFACED Routine 020 17:33 EDT POCT GLUCOSE, INTERFACED Routine 020 16:16 EDT POCT GLUCOSE, INTERFACED Routine 020 12:20 EDT ECG REPORT - SCANNED 02/24/2020 11:30 EDT EKG 12-LEAD Routine 02/24/2020 11:15 EDT POCT GLUCOSE, INTERFACED Routine 020 7:29 EDT PTT Routine 02/24/2020 5:58 EDT PROTIME Routine 02/24/2020 5:58 EDT COMPLETE BLOOD COUNT Routine 02/24/2020 5:58 EDT BUN Routine 02/24/2020 5:58 EDT PHOSPHORUS Routine 02/24/2020 5:58 EDT MAGNESIUM Routine 02/24/2020 5:58 EDT CREATININE Routine 02/24/2020 5:58 EDT ELECTROLYTES Routine 02/24/2020 5:58 EDT ELECTROLYTES Routine 02/23/2020 21:35 EDT POCT GLUCOSE, INTERFACED Routine 020 21:23 EDT POCT GLUCOSE, INTERFACED Routine 020 17:24 EDT ELECTROLYTES Routine 02/23/2020 14:33 EDT POCT GLUCOSE, INTERFACED Routine 020 12:12 EDT POCT GLUCOSE, INTERFACED Routine 020 7:17 EDT PTT Routine 02/23/2020 5:42 EDT PROTIME Routine 02/23/2020 5:42 EDT COMPLETE BLOOD COUNT Routine 02/23/2020 5:42 EDT BUN Routine 02/23/2020 5:42 EDT PHOSPHORUS Routine 02/23/2020 5:42 EDT MAGNESIUM Routine 02/23/2020 5:42 EDT CREATININE Routine 02/23/2020 5:42 EDT ELECTROLYTES Routine 02/23/2020 5:42 EDT ELECTROLYTES Routine 02/22/2020 21:[address] HEAD WO CONTRAST Routine 02/22/2020 2 1:02 EDT POCT GLUCOSE, INTERFACED Routine 020 20:33 EDT POCT GLUCOSE, INTERFACED Routine 020 17:54 EDT ELECTROLYTES Routine 02/22/2020 15:00 EDT POCT GLUCOSE, INTERFACED Routine 020 12:19 EDT POCT GLUCOSE, INTERFACED Routine 020 8:50 EDT POCT GLUCOSE, INTERFACED Routine 020 5:23 EDT PTT Routine 02/22/2020 2:29 EDT PROTIME Routine 02/22/2020 2:29 EDT COMPLETE BLOOD COUNT Routine 02/22/2020 2:29 EDT BUN Routine 02/22/2020 2:29 EDT PHOSPHORUS Routine 02/22/2020 2:29 EDT MAGNESIUM Routine 02/22/2020 2:29 EDT CREATININE Routine 02/22/2020 2:29 EDT ELECTROLYTES Routine 02/22/2020 2:29 EDT POCT GLUCOSE, INTERFACED Routine 020 0:26 EDT ELECTROLYTES Routine 02/21/2020 21:51 EDT POCT GLUCOSE, INTERFACED Routine 020 19:24 EDT RESPIRATORY CARE EVALUATION ONLY Routine 02/21/2020 18:00 EDT ELECTROLYTES Routine 02/21/2020 12:52 EDT POCT GLUCOSE, INTERFACED Routine 020 12:24 EDT POCT GLUCOSE, INTERFACED Routine 020 6:17 EDT RESPIRATORY CARE EVALUATION ONLY Routine 02/21/2020 6:00 EDT PTT Routine 02/21/2020 2:32 EDT PROTIME Routine 02/21/2020 2:32 EDT COMPLETE BLOOD COUNT Routine 02/21/2020 2:32 EDT BUN Routine 02/21/2020 2:32 EDT PHOSPHORUS Routine 02/21/2020 2:32 EDT MAGNESIUM Routine 02/21/2020 2:32 EDT CREATININE Routine 02/21/2020 2:32 EDT ELECTROLYTES Routine 02/21/2020 2:32 EDT POCT GLUCOSE, INTERFACED Routine 020 0:32 EDT ELECTROLYTES Routine 02/20/2020 21:18 EDT POCT GLUCOSE, INTERFACED Routine 020 19:32 EDT RESPIRATORY CARE EVALUATION ONLY Routine 02/20/2020 18:00 EDT ELECTROLYTES Routine 02/20/2020 14:26 EDT POCT GLUCOSE, INTERFACED Routine 020 11:28 EDT PTT Routine 02/20/2020 6:48 EDT PROTIME Routine 02/20/2020 6:48 EDT COMPLETE BLOOD COUNT Routine 02/20/2020 6:48 EDT BUN Routine 02/20/2020 6:48 EDT PHOSPHORUS Routine 02/20/2020 6:48 EDT MAGNESIUM Routine 02/20/2020 6:48 EDT CREATININE Routine 02/20/2020 6:48 EDT ELECTROLYTES Routine 02/20/2020 6:48 EDT POCT GLUCOSE, INTERFACED Routine 020 6:19 EDT RESPIRATORY CARE EVALUATION ONLY Routine 02/20/2020 6:00 EDT POCT GLUCOSE, INTERFACED Routine 020 0:01 EDT ELECTROLYTES Routine 02/19/2020 21:25 EDT RESPIRATORY CARE EVALUATION ONLY Routine 02/19/2020 18:00 EDT POCT GLUCOSE, INTERFACED Routine 020 17:26 EDT ELECTROLYTES Routine 02/19/2020 14:12 EDT RESPIRATORY CARE EVALUATION ONLY Routine 02/19/2020 12:09 EDT RESPIRATORY CARE EVALUATION ONLY Routine 02/19/2020 12:09 EDT POCT GLUCOSE, INTERFACED Routine 020 11:13 EDT RESPIRATORY CARE EVALUATION ONLY Routine 02/19/2020 6:56 EDT RESPIRATORY CARE EVALUATION ONLY Routine 02/19/2020 6:56 EDT EXTUBATION Routine 02/19/2020 6:35 EDT POCT GLUCOSE, INTERFACED Routine 020 6:01 EDT PTT Routine 02/19/2020 4:18 EDT PROTIME Routine 02/19/2020 4:18 EDT COMPLETE BLOOD COUNT Routine 02/19/2020 4:18 EDT BUN Routine 02/19/2020 4:18 EDT PHOSPHORUS Routine 02/19/2020 4:18 EDT MAGNESIUM Routine 02/19/2020 4:18 EDT CREATININE Routine 02/19/2020 4:18 EDT ELECTROLYTES Routine 02/19/2020 4:18 EDT POCT GLUCOSE, INTERFACED Routine 020 0:00 EDT HN LAB PATH REVIEW - COAG Today 2019 20:34 EDT LUPUS ANTICOAGULANT CASCADE Routine 02/18/2020 20:34 EDT LA CONFIRM TEST Today 02/18/2020 20:34 EDT ELECTROLYTES Routine 02/18/2020 20:34 EDT POCT GLUCOSE, INTERFACED Routine 020 17:23 EDT ELECTROLYTES Routine 02/18/2020 12:13 EDT POCT GLUCOSE, INTERFACED Routine 020 11:27 EDT PTT Routine 02/18/2020 5:44 EDT PROTIME Routine 02/18/2020 5:44 EDT COMPLETE BLOOD COUNT Routine 02/18/2020 5:44 EDT BUN Routine 02/18/2020 5:44 EDT TRIGLYCERIDE Routine 02/18/2020 5:44 EDT PHOSPHORUS Routine 02/18/2020 5:44 EDT MAGNESIUM Routine 02/18/2020 5:44 EDT CREATININE Routine 02/18/2020 5:44 EDT ELECTROLYTES Routine 02/18/2020 5:44 EDT POCT GLUCOSE, INTERFACED Routine 020 5:36 EDT ELECTROLYTES Routine 02/17/2020 23:47 EDT POCT GLUCOSE, INTERFACED Routine 020 23:36 EDT POCT GLUCOSE, INTERFACED Routine 020 17:39 EDT ELECTROLYTES Routine 02/17/2020 16:11 EDT POCT GLUCOSE, INTERFACED Routine 020 11:[address] HEAD VENOGRAM W CONTRAST Routine 02/17/2020 11:09 EDT ELECTROLYTES Routine 02/17/2020 9:45 EDT PTT Routine 02/17/2020 5:19 EDT PROTIME Routine 02/17/2020 5:19 EDT COMPLETE BLOOD COUNT Routine 02/17/2020 5:19 EDT BUN Routine 02/17/2020 5:19 EDT PHOSPHORUS Routine 02/17/2020 5:19 EDT MAGNESIUM Routine 02/17/2020 5:19 EDT CREATININE Routine 02/17/2020 5:19 EDT ELECTROLYTES Routine 02/17/2020 5:19 EDT POCT GLUCOSE, INTERFACED Routine 020 5:18 EDT POCT GLUCOSE, INTERFACED Routine 020 23:28 EDT ELECTROLYTES Routine 02/16/2020 23:28 EDT XR FEEDING TUBE PLACEMENT Routine 2019 21:27 EDT POCT GLUCOSE, INTERFACED Routine 020 17:37 EDT ELECTROLYTES Routine 02/16/2020 17:[address] HEAD WO CONTRAST Routine 02/16/2020 1 7:13 EDT POCT BLOOD GAS, EG6 I-STAT Routine 02/15 16:35 EDT US UPPER VENOUS DUPLEX (DVT) BILATERAL Routine 02/16/2020 16:11 EDT US LOWER VENOUS DUPLEX (DVT) BILATERAL STAT 02/16/2020 16:05 EDT Stroke (HCC-CMS) Pulmonary embolism (HCC-CMS) SURGICAL PATHOLOGY Routine 02/16/2020 12 :30 EDT PTT Routine 02/16/2020 12:04 EDT PROTIME Routine 02/16/2020 12:04 EDT HEPARIN LEVEL - UNFRACTIONATED HEPARIN STAT 02/16/2020 12:04 EDT POCT BLOOD GAS, CG8 I-STAT Routine 02/15 11:40 EDT CRANIECTOMY OR CRANIOTOMY, SUPRATENTORIAL, EXPLORATORY 02/16/2020 10:25 EDT Cerebral venous thrombosis Intraparenchymal hemorrhage of brain (HCC-CMS) TYPE AND SCREEN Routine 02/16/2020 9:50 EDT POCT GLUCOSE, INTERFACED Routine 020 5:[address] HEAD WO CONTRAST Routine 02/16/2020 4 :52 EDT HEPARIN LEVEL - UNFRACTIONATED HEPARIN STAT 02/16/2020 3:08 EDT COMPLETE BLOOD COUNT Routine 02/16/2020 3:08 EDT CREATININE Routine 02/16/2020 3:08 EDT ELECTROLYTES Routine 02/16/2020 3:08 EDT POCT GLUCOSE, INTERFACED Routine 020 0:56 EDT POCT GLUCOSE, INTERFACED Routine 020 18:12 EDT US ABDOMEN LIMITED Routine 02/15/2020 17 :40 EDT TRANSTHORACIC ECHO (TTE) COMPLETE Routine 02/15/2020 15:45 EDT HEPARIN LEVEL - UNFRACTIONATED HEPARIN STAT 02/15/2020 15:17 EDT ECG REPORT - SCANNED 02/15/2020 14:[address] CHEST W CONTRAST Routine 02/15/2020 1 4:[address] ABDOMEN PELVIS W CONTRAST Routine 02/15/2020 14:[address] HEAD WO CONTRAST Routine 02/15/2020 1 4:01 EDT POCT GLUCOSE, INTERFACED Routine 020 12:20 EDT PROTEIN S ACTIVITY Routine 02/15/2020 8: 42 EDT PROTEIN C ACTIVITY Routine 02/15/2020 8: 42 EDT POCT GLUCOSE, INTERFACED Routine 020 6:15 EDT RESPIRATORY CARE EVALUATION ONLY Routine 02/15/2020 6:00 EDT FACTOR V LEIDEN (R506Q) MUTATION, BLOOD Add-On 02/15/2020 3:15 EDT BETA 2 GLYCOPROTEIN ANTIBODY PANEL Add-On 02/15/2020 3:15 EDT PHOSPHOLIPID ANTIBODY Add-On 02/15/2020 3:15 EDT HEPARIN LEVEL - UNFRACTIONATED HEPARIN STAT 02/15/2020 3:15 EDT COMPLETE BLOOD COUNT Routine 02/15/2020 3:15 EDT CREATININE Routine 02/15/2020 3:15 EDT ELECTROLYTES Routine 02/15/2020 3:[address] HEAD WO CONTRAST STAT 02/15/2020 2 :49 EDT EKG 12-LEAD Routine 02/15/2020 1:[address] HEAD WO CONTRAST Routine 02/15/2020 0 :44 EDT POCT GLUCOSE, INTERFACED Routine 020 23:54 EDT RESPIRATORY CARE EVALUATION ONLY Routine 02/14/2020 22:59 EDT RESPIRATORY CARE EVALUATION ONLY Routine 02/14/2020 22:59 EDT MRSA PCR Routine 02/14/2020 22:54 EDT TROPONIN I Routine 02/14/2020 20:[address] ANGIO HEAD NECK STAT 02/14/2020 18 :[address] HEAD VENOGRAM W CONTRAST STAT 02/14/2020 18:23 EDT ED CRITICAL CARE Routine 02/14/2020 18:0 0 EDT ED CRITICAL CARE Routine 02/14/2020 18:0 0 EDT COMPLETE BLOOD COUNT AND DIFFERENTIAL STAT 02/14/2020 17:48 EDT HEMOGLOBIN A1C Add-On 02/14/2020 17:48 EDT LIPID PROFILE (INCLUDES CHOLESTEROL, TRIGLYCERIDES, HDL, LDL) Add-On 02/14/2020 17:48 EDT BASIC METABOLIC PANEL (BMP) STAT 02/14/2020 17:48 EDT documented in this encounter Results * ECG REPORT - SCANNED (03/04/2020 11:56 EDT) 03/04/2020 11:5 6 EDT us Scan 2 Psychiatric Aide Instructor PROCEDURE/MINOR SURGICAL OR DERABLES Final Result * ECG REPORT - SCANNED (03/04/2020 11:56 EDT) 03/04/2020 11:5 6 EDT us Scan 2 Psychiatric Aide Instructor PROCEDURE/MINOR SURGICAL OR DERABLES Final Result * (ABNORMAL) POCT GLUCOSE, INTERFACED (03/02/2020 12:25 EDT) Glucose, POC 112(H) 70 - 100 mg/dL 03/02/2020 12:[address] [facility] corporate staff accountant ID [id number] 03/02/2020 12:[address] [facility] HN LAB POC COMMENT (GLUCOSE) Test Performed by Nursing Services 03/02/2020 12:[address] [facility] Blood CAPILLARY BLOOD / Unknown 03/02/2020 12:25 EDT 03/02/2020 12:27 EDT Kevin Rinaldi MD POINT OF CARE TEST ORDERABLES F inal Result [facility] [address] [place] [address] * MYELOPROLIFERATIVE NEOPLASM, JAK2 V617F W REFLEX (03/02/2020 11:41 EDT) Pathologist [facility] MPNR Result see interpretation 03/08/2020 13:51 EDT [facility] Final Diagnosis SEE NOTE 0 13:51 EDT [facility] Comment: Peripheral blood, JAK2 V617F mutation analysis: Negative for JAK2 V617F. Method summary - JAK2 V617F analysis: Quantitative, allele-specific polymerase chain reaction (PCR) assay was performed using extracted genomic DNA to evaluate for the point mutation causing JAK2 V617F. The analytic sensitivity of this assay has been determined at 0.06%. Peripheral blood, CALR mutation analysis, exon 9. Negative. No deletion or insertion was detected in CALR, exon 9. Method summary - CALR: Exon 9 of CALR was amplified from genomic DNA by polymerase chain reaction (PCR). The size of the PCR product was analyzed by capillary electrophoresis. The analytic sensitivity of this assay is approximately 6% for the majority of CALR mutations and is approximately 20% for the rare type 1-bp deletion. Peripheral blood, MPL exon 10 mutation analysis: Negative. No mutation was detected in MPL, exon 10. Method summary - MPL exon 10 mutation analysis: Genomic DNA was extracted and House sequencing used to evaluate for mutations in MPL, exon 10. The sensitivity of this assay is approximately 20%, such that samples containing lower percentages of mutated DNA will appear negative. Comment: Negative results for [id number], CALR exon 9, and MPL exon 10 mutations do not exclude the diagnosis of a myeloproliferative neoplasm. Correlation with clinical and morphologic finding is recommended for a definitive diagnosis. Samples containing mutations in these genes at levels below the analytical sensitivity of each assay may not be detected by these methods. If there are persistent unexplained erythrocytosis, JAK2 Exon 12 analysis could be considered (JAKXB or JAKXM) to rule out polycythemia vera (PV). Signing Pathologist: Erica Segundo M.D. ADDITIONAL INFORMATION This test was developed and its performance characteristics determined by [facility] in a manner consistent with CLIA requirements. This test has not been cleared or approved by the U.S. Food and Drug Administration. Test Performed by: [address] [address] Investment Representative: Kain Shay M.D. Ph.D.; CLIA# [id number] Blood VENOUS BLOOD / Unknown Venipuncture / Unknown 03/02/2020 11:41 EDT 03/02/2020 12:00 EDT Claus Piña MD CHEMISTRY & BLOOD GAS ORDERABLES Final Result [facility] [address] [place] [id number] * (ABNORMAL) POCT GLUCOSE, INTERFACED (03/02/2020 6:55 EDT) Glucose, POC 105(H) 70 - 100 mg/dL 03/02/2020 6:[address] [facility] corporate staff accountant ID [id number] 03/02/2020 6:[address] [facility] HN LAB POC COMMENT (GLUCOSE) Test Performed by Nursing Services 03/02/2020 6:[address] [facility] Blood CAPILLARY BLOOD / Unknown 03/02/2020 6:55 EDT 03/02/2020 6:57 EDT Kevin Rinaldi MD POINT OF CARE TEST ORDERABLES F inal Result Performing Organization Address City/[facility]/ZIP Co de Phone Number [facility] [address] [place] [address] * (ABNORMAL) ELECTROLYTES (03/02/2020 6:12 EDT) Sodium 134(L) 136 - 145 mEq/L 03/02/2020 7:[address] [facility] Potassium 4.8 3.5 - 5.0 mEq/L 03/02/2020 7:[address] [facility] Chloride 102 96 - 110 mEq/L 03/02/2020 7:[address] [facility] CO2 Total 22 22 - 32 mEq/L 03/02/2020 7:[address] [facility] Blood VENOUS BLOOD / Unknown Venipuncture / Unknown 03/02/2020 6:12 EDT 03/02/2020 6:35 EDT Damon Eckert MD CHEMISTRY & BLOOD GAS ORDER [place] Final Result Performing Organization Address [facility] Co de Phone Number [facility] [address] [place] [address] * (ABNORMAL) PHOSPHORUS (03/02/2020 6:12 EDT) Pathologist [facility] Phosphorus 5.6(H) 2.5 - 4.5 mg/dL 03/02/2020 7:[address] [facility] Blood VENOUS BLOOD / Unknown Venipuncture / Unknown 03/02/2020 6:12 EDT 03/02/2020 6:35 EDT Parag Eid MD CHEMISTRY & BLOOD GAS ORDERAB LES Final Result Performing Organization Address City/[facility]/ZIP Co de Phone Number [facility] [address] [place] [address] * MAGNESIUM (03/02/2020 6:12 EDT) Magnesium 1.7 1.7 - 2.8 mg/dL 03/02/2020 7:[address] [facility] Blood VENOUS BLOOD / Unknown Venipuncture / Unknown 03/02/2020 6:12 EDT 03/02/2020 6:35 EDT us Parag Eid MD CHEMISTRY & BLOOD GAS ORDERAB LES Final Result [facility] [address] [place] [id number] * PROTIME (03/02/2020 6:12 EDT) I.N.R. 1.1 0.9 - 1.1 Ratio 03/02/2020 7:[address] [facility] Pro Time 13.2 10.3 - 13.4 secs 03/02/2020 7:[address] [facility] Blood VENOUS BLOOD / Unknown Venipuncture / Unknown 03/02/2020 6:12 EDT 03/02/2020 6:[address] [facility] - 03/02/2020 7:07 EDT Moderate Intensity Coumadin INR = 2.0-3.0 Adjustments in anticoagulant therapy dose should be based on the INR and NOT on the Protime. us Parag Eid MD HEMATOLOGY & PF4 ORDERABLES F inal Result Performing Organization Address City/[facility]/ZIP Co de Phone Number [facility] [address] [place] [phone] * (ABNORMAL) PTT (03/02/2020 6:12 EDT) PTT 39(H) 26 - 37 secs 03/02/2020 7:[address] [facility] Blood VENOUS BLOOD / Unknown Venipuncture / Unknown 03/02/2020 6:12 EDT 03/02/2020 6:34 EDT us Parag Eid MD HEMATOLOGY & PF4 ORDERABLES F inal Result [facility] [address] [place] [id number] * BUN (03/02/2020 6:12 EDT) BUN 20 10 - 26 mg/dL 03/02/2020 7:[address] [facility] Blood VENOUS BLOOD / Unknown Venipuncture / Unknown 03/02/2020 6:12 EDT 03/02/2020 6:35 EDT us Parag Eid MD CHEMISTRY & BLOOD GAS ORDERAB LES Final Result Performing Organization Address [facility] Co de Phone Number [facility] [address] [place] [address] * (ABNORMAL) CREATININE (03/02/2020 6:12 EDT) Creatinine 0.45(L) 0.52 - 1.04 mg/dL 03/02/2020 7:[address] [facility] eGFR 116 >60 mL/min/1.7 3m2 03/02/2020 7:[address] [facility] Comment:eGFR calculated mickey redd CKD-EPI equation for non- Americans. Multiply eGFR by 1.16 for patients. Blood VENOUS BLOOD / Unknown Venipuncture / Unknown 03/02/2020 6:12 EDT 03/02/2020 6:35 EDT us Joyce Lee MD CHEMISTRY & BLOOD GAS ORDERABLES Final Result Performing Organization Address City/[facility]/ZIP Co de Phone Number [facility] [address] [place] [address] * (ABNORMAL) COMPLETE BLOOD COUNT (03/02/2020 6:12 EDT) WBC 6.43 4.00 - 12.40 K/cmm 03/02/2020 6:[address] [facility] RBC 4.10 3.86 - 5.04 M/cmm 03/02/2020 6:[address] [facility] Hemoglobin 13.2 11.6 - 15.2 gm/dL 03/02/2020 6:[address] [facility] HCT 39.6 34.9 - 44.4 % 03/02/2020 6:[address] [facility] MCV 97 81 - 98 fl 03/02/2020 6:[address] [facility] MCH 32.2 26.7 - 33.3 pg 03/02/2020 6:[address] [facility] MCHC 33.3 32.1 - 35.9 gm/dL 03/02/2020 6:[address] [facility] RDW-CV 13.3 <14.7 % 03/02/2020 6:[address] [facility] RDW-SD 48.0 <50.4 fl 03/02/2020 6:[address] [facility] PLT 462(H) 141 - 377 K/cmm 03/02/2020 6:[address] [facility] MPV 10.9 9.5 - 12.7 fl 03/02/2020 6:[address] [facility] Blood VENOUS BLOOD / Unknown Venipuncture / Unknown 03/02/2020 6:12 EDT 03/02/2020 6:36 EDT us Joyce Lee MD HEMATOLOGY & PF4 ORDERABLES Shannon l Result [facility] [address] [place] [address] * (ABNORMAL) POCT GLUCOSE, INTERFACED (03/01/2020 20:41 EDT) Glucose, POC 119(H) 70 - 100 mg/dL 03/01/2020 20:[address] [facility] corporate staff accountant ID [id number] 03/01/2020 20:[address] [facility] HN LAB POC COMMENT (GLUCOSE) Test Performed by Nursing Services 03/01/2020 20:[address] [facility] Blood CAPILLARY BLOOD / Unknown 03/01/2020 20:41 EDT 03/01/2020 20:42 EDT us Kevin Rinaldi MD POINT OF CARE TEST ORDERABLES F inal Result [facility] [address] [place] [address] * (ABNORMAL) POCT GLUCOSE, INTERFACED (03/01/2020 17:21 EDT) Glucose, POC 111(H) 70 - 100 mg/dL 03/01/2020 17:[address] [facility] corporate staff accountant ID [id number] 03/01/2020 17:[address] [facility] HN LAB POC COMMENT (GLUCOSE) Test Performed by Nursing Services 03/01/2020 17:[address] [facility] Blood CAPILLARY BLOOD / Unknown 03/01/2020 17:21 EDT 03/01/2020 17:22 EDT us Kevin Rinaldi MD POINT OF CARE TEST ORDERABLES F inal Result Performing Organization Address [facility] Co de Phone Number [facility] [address] [place] [address] * (ABNORMAL) POCT GLUCOSE, INTERFACED (03/01/2020 11:16 EDT) Glucose, POC 115(H) 70 - 100 mg/dL 03/01/2020 11:[address] [facility] corporate staff accountant ID [id number] 03/01/2020 11:[address] [facility] HN LAB POC COMMENT (GLUCOSE) Test Performed by Nursing Services 03/01/2020 11:[address] [facility] Blood CAPILLARY BLOOD / Unknown 03/01/2020 11:16 EDT 03/01/2020 11:21 EDT us Kevin Rinaldi MD POINT OF CARE TEST ORDERABLES F inal Result [facility] [address] [place] [address] * (ABNORMAL) POCT GLUCOSE, INTERFACED (03/01/2020 8:44 EDT) Glucose, POC 147(H) 70 - 100 mg/dL 03/01/2020 8:[address] [facility] corporate staff accountant ID [id number] 03/01/2020 8:[address] [facility] HN LAB POC COMMENT (GLUCOSE) Test Performed by Nursing Services 03/01/2020 8:[address] [facility] Blood CAPILLARY BLOOD / Unknown 03/01/2020 8:44 EDT 03/01/2020 8:44 EDT us Kevin Rinaldi MD POINT OF CARE TEST ORDERABLES F inal Result Performing Organization Address [facility] Co de Phone Number [facility] [address] [place] [address] * (ABNORMAL) ELECTROLYTES (03/01/2020 5:25 EDT) Sodium 135(L) 136 - 145 mEq/L 03/01/2020 6:[address] [facility] Potassium 4.6 3.5 - 5.0 mEq/L 03/01/2020 6:[address] [facility] Chloride 102 96 - 110 mEq/L 03/01/2020 6:[address] [facility] CO2 Total 23 22 - 32 mEq/L 03/01/2020 6:[address] [facility] Blood VENOUS BLOOD / Unknown Venipuncture / Unknown 03/01/2020 5:25 EDT 03/01/2020 6:10 EDT us Damon Eckert MD CHEMISTRY & BLOOD GAS ORDER [place] Final Result Performing Organization Address City/[facility] Co de Phone Number [facility] [address] [place] [address] * (ABNORMAL) PHOSPHORUS (03/01/2020 5:25 EDT) Phosphorus 5.8(H) 2.5 - 4.5 mg/dL 03/01/2020 6:[address] [facility] Blood VENOUS BLOOD / Unknown Venipuncture / Unknown 03/01/2020 5:25 EDT 03/01/2020 6:10 EDT us Parag Eid MD CHEMISTRY & BLOOD GAS ORDERAB LES Final Result [facility] [address] [place] [address] * MAGNESIUM (03/01/2020 5:25 EDT) Magnesium 1.9 1.7 - 2.8 mg/dL 03/01/2020 6:[address] [facility] Blood VENOUS BLOOD / Unknown Venipuncture / Unknown 03/01/2020 5:25 EDT 03/01/2020 6:10 EDT Parag Eid MD CHEMISTRY & BLOOD GAS ORDERAB LES Final Result Performing Organization Address [facility] Co de Phone Number [facility] [address] [place] [address] * PROTIME (03/01/2020 5:25 EDT) [facility] I.N.R. 1.0 0.9 - 1.1 Ratio 03/01/2020 6:[address] [facility] Pro Time 12.0 10.3 - 13.4 secs 03/01/2020 6:[address] [facility] Blood VENOUS BLOOD / Unknown Venipuncture / Unknown 03/01/2020 5:25 EDT 03/01/2020 5:[address] [facility] - 03/01/2020 6:14 EDT Moderate Intensity Coumadin INR = 2.0-3.0 Adjustments in anticoagulant therapy dose should be based on the INR and NOT on the Protime. Parag Eid MD HEMATOLOGY & PF4 ORDERABLES F inal Result Performing Organization Address City/[facility]/ZIP Co de Phone Number [facility] [address] [place] [address] * PTT (03/01/2020 5:25 EDT) Pathologist [facility] PTT 35 26 - 37 secs 03/01/2020 6:[address] [facility] Blood VENOUS BLOOD / Unknown Venipuncture / Unknown 03/01/2020 5:25 EDT 03/01/2020 5:48 EDT Parag Eid MD HEMATOLOGY & PF4 ORDERABLES F inal Result Performing Organization Address City/[facility] Co de Phone Number [facility] [address] [place] [address] * BUN (03/01/2020 5:25 EDT) BUN 24 10 - 26 mg/dL 03/01/2020 6:[address] [facility] Blood VENOUS BLOOD / Unknown Venipuncture / Unknown 03/01/2020 5:25 EDT 03/01/2020 6:10 EDT Parag Eid MD CHEMISTRY & BLOOD GAS ORDERAB LES Final Result Performing Organization Address [facility] de Phone Number [facility] [address] [place] [address] * (ABNORMAL) CREATININE (03/01/2020 5:25 EDT) Creatinine 0.49(L) 0.52 - 1.04 mg/dL 03/01/2020 6:[address] [facility] eGFR 112 >60 mL/min/1.7 3m2 03/01/2020 6:[address] [facility] Comment:eGFR calculated mickey redd CKD-EPI equation for non- Americans. Multiply eGFR by 1.16 for patients. Blood VENOUS BLOOD / Unknown Venipuncture / Unknown 03/01/2020 5:25 EDT 03/01/2020 6:10 EDT Joyce Lee MD CHEMISTRY & BLOOD GAS ORDERABLES Final Result Performing Organization Address [facility] Co de Phone Number [facility] [address] [place] [address] * (ABNORMAL) COMPLETE BLOOD COUNT (03/01/2020 5:25 EDT) WBC 6.36 4.00 - 12.40 K/cmm 03/01/2020 5:[address] [facility] RBC 3.72(L) 3.86 - 5.04 M/cmm 03/01/2020 5:[address] [facility] Hemoglobin 12.1 11.6 - 15.2 gm/dL 03/01/2020 5:[address] [facility] HCT 36.8 34.9 - 44.4 % 03/01/2020 5:[address] [facility] MCV 99(H) 81 - 98 fl 03/01/2020 5:[address] [facility] MCH 32.5 26.7 - 33.3 pg 03/01/2020 5:57 [facility] MCHC 32.9 32.1 - 35.9 gm/dL 03/01/2020 5:57 [facility] RDW-CV 13.5 <14.7 % 03/01/2020 5:57 [facility] RDW-SD 50.2 <50.4 fl 03/01/2020 5:57 [facility] PLT 441(H) 141 - 377 K/cmm 03/01/2020 5:57 [facility] MPV 11.1 9.5 - 12.7 fl 03/01/2020 5:[address] [facility] Blood VENOUS BLOOD / Unknown Venipuncture / Unknown 03/01/2020 5:25 EDT 03/01/2020 5:49 EDT us Joyce Lee MD HEMATOLOGY & PF4 ORDERABLES Shannon l Result [facility] [address] [place] [address] * (ABNORMAL) POCT GLUCOSE, INTERFACED (02/29/2020 20:54 EDT) Glucose, POC 103(H) 70 - 100 mg/dL 02/29/2020 20:[address] [facility] corporate staff accountant ID [id number] 02/29/2020 20:[address] [facility] HN LAB POC COMMENT (GLUCOSE) Test Performed by Nursing Services 02/29/2020 20:[address] [facility] Blood CAPILLARY BLOOD / Unknown 02/29/2020 20:54 EDT 02/29/2020 20:55 EDT us Kevin Rinaldi MD POINT OF CARE TEST ORDERABLES F inal Result Performing Organization Address City/[facility]/ZIP Co de Phone Number [facility] [address] [place] [address] * (ABNORMAL) POCT GLUCOSE, INTERFACED (02/29/2020 16:42 EDT) Glucose, POC 115(H) 70 - 100 mg/dL 02/29/2020 16:[address] [facility] corporate staff accountant ID [id number] 02/29/2020 16:[address] [facility] HN LAB POC COMMENT (GLUCOSE) Test Performed by Nursing Services 02/29/2020 16:[address] [facility] Blood CAPILLARY BLOOD / Unknown 02/29/2020 16:42 EDT 02/29/2020 16:44 EDT us Kevin Rinaldi MD POINT OF CARE TEST ORDERABLES F inal Result Performing Organization Address [facility]/ZIP Co de Phone Number [facility] [address] [place] [address] * ECG REPORT - SCANNED (02/29/2020 12:52 EDT) 02/29/2020 12:5 2 EDT us Scan 2 Psychiatric Aide Instructor PROCEDURE/MINOR SURGICAL OR DERABLES Final Result * (ABNORMAL) POCT GLUCOSE, INTERFACED (02/29/2020 11:12 EDT) Glucose, POC 135(H) 70 - 100 mg/dL 02/29/2020 11:[address] [facility] corporate staff accountant ID [id number] 02/29/2020 11:[address] [facility] HN LAB POC COMMENT (GLUCOSE) Test Performed by Nursing Services 02/29/2020 11:[address] [facility] Blood CAPILLARY BLOOD / Unknown 02/29/2020 11:12 EDT 02/29/2020 11:17 EDT us Keivn Rinaldi MD POINT OF CARE TEST ORDERABLES F inal Result Performing Organization Address [facility]/ZIP Co de Phone Number [facility] [address] [place] [address] * (ABNORMAL) POCT GLUCOSE, INTERFACED (02/29/2020 8:12 EDT) Glucose, POC 117(H) 70 - 100 mg/dL 02/29/2020 8:[address] [facility] corporate staff accountant ID [id number] 02/29/2020 8:[address] [facility] HN LAB POC COMMENT (GLUCOSE) Test Performed by Nursing Services 02/29/2020 8:[address] [facility] Blood CAPILLARY BLOOD / Unknown 02/29/2020 8:12 EDT 02/29/2020 8:13 EDT us Kevin Rinaldi MD POINT OF CARE TEST ORDERABLES F inal Result Performing Organization Address City/[facility]/ZIP Co de Phone Number [facility] [address] [place] [address] * (ABNORMAL) ELECTROLYTES (02/29/2020 6:39 EDT) Sodium 133(L) 136 - 145 mEq/L 02/29/2020 7:[address] [facility] Potassium 4.6 3.5 - 5.0 mEq/L 02/29/2020 7:[address] [facility] Chloride 102 96 - 110 mEq/L 02/29/2020 7:[address] [facility] CO2 Total 24 22 - 32 mEq/L 02/29/2020 7:[address] [facility] Blood VENOUS BLOOD / Unknown Venipuncture / Unknown 02/29/2020 6:39 EDT 02/29/2020 6:50 EDT us Dmaon Eckert MD CHEMISTRY & BLOOD GAS ORDER [place] Final Result Performing Organization Address City/[facility]/ZIP Co de Phone Number [facility] [address] [place] [address] * (ABNORMAL) PHOSPHORUS (02/29/2020 6:39 EDT) Phosphorus 4.6(H) 2.5 - 4.5 mg/dL 02/29/2020 7:[address] [facility] Blood VENOUS BLOOD / Unknown Venipuncture / Unknown 02/29/2020 6:39 EDT 02/29/2020 6:50 EDT Parag Eid MD CHEMISTRY & BLOOD GAS ORDERAB LES Final Result Performing Organization Address City/[facility] Co de Phone Number [facility] [address] [place] [address] * MAGNESIUM (02/29/2020 6:39 EDT) Magnesium 1.8 1.7 - 2.8 mg/dL 02/29/2020 7:[address] [facility] Blood VENOUS BLOOD / Unknown Venipuncture / Unknown 02/29/2020 6:39 EDT 02/29/2020 6:50 EDT Parag Eid MD CHEMISTRY & BLOOD GAS ORDERAB LES Final Result Performing Organization Address [facility]/ZIP Co de Phone Number [facility] [address] [place] [id number] * PROTIME (02/29/2020 6:39 EDT) I.N.R. 1.1 0.9 - 1.1 Ratio 02/29/2020 7:[address] [facility] Pro Time 12.8 10.3 - 13.4 secs 02/29/2020 7:[address] [facility] Blood VENOUS BLOOD / Unknown Venipuncture / Unknown 02/29/2020 6:39 EDT 02/29/2020 6:[address] [facility] - 02/29/2020 7:17 EDT Moderate Intensity Coumadin INR = 2.0-3.0 Adjustments in anticoagulant therapy dose should be based on the INR and NOT on the Protime. us Parag Eid MD HEMATOLOGY & PF4 ORDERABLES F inal Result Performing Organization Address [facility] Co de Phone Number [facility] [address] [place] [address] * PTT (02/29/2020 6:39 EDT) PTT 37 26 - 37 secs 02/29/2020 7:[address] [facility] Blood VENOUS BLOOD / Unknown Venipuncture / Unknown 02/29/2020 6:39 EDT 02/29/2020 6:51 EDT us Parag Eid MD HEMATOLOGY & PF4 ORDERABLES F inal Result Performing Organization Address [facility] Co de Phone Number [facility] [address] [place] [address] * BUN (02/29/2020 6:39 EDT) BUN 19 10 - 26 mg/dL 02/29/2020 7:[address] [facility] Blood VENOUS BLOOD / Unknown Venipuncture / Unknown 02/29/2020 6:39 EDT 02/29/2020 6:50 EDT us Parag Eid MD CHEMISTRY & BLOOD GAS ORDERAB LES Final Result Performing Organization Address [facility] Co de Phone Number [facility] [address] [place] [address] * (ABNORMAL) CREATININE (02/29/2020 6:39 EDT) Creatinine 0.49(L) 0.52 - 1.04 mg/dL 02/29/2020 7:[address] [facility] eGFR 112 >60 mL/min/1.7 3m2 02/29/2020 7:[address] [facility] Comment:eGFR calculated usin g CKD-EPI equation for non- Americans. Multiply eGFR by 1.16 for patients. Blood VENOUS BLOOD / Unknown Venipuncture / Unknown 02/29/2020 6:39 EDT 02/29/2020 6:50 EDT us Joyce Lee MD CHEMISTRY & BLOOD GAS ORDERABLES Final Result [facility] [address] [place] [address] * (ABNORMAL) COMPLETE BLOOD COUNT (02/29/2020 6:39 EDT) WBC 6.86 4.00 - 12.40 K/cmm 02/29/2020 7:02 [facility] RBC 3.78(L) 3.86 - 5.04 M/cmm 02/29/2020 7:02 [facility] Hemoglobin 12.3 11.6 - 15.2 gm/dL 02/29/2020 7:02 [facility] HCT 37.0 34.9 - 44.4 % 02/29/2020 7:02 [facility] MCV 98 81 - 98 fl 02/29/2020 7:02 [facility] MCH 32.5 26.7 - 33.3 pg 02/29/2020 7:02 [facility] MCHC 33.2 32.1 - 35.9 gm/dL 02/29/2020 7:02 [facility] RDW-CV 13.5 <14.7 % 02/29/2020 7:02 [facility] RDW-SD 49.0 <50.4 fl 02/29/2020 7:02 [facility] PLT 438(H) 141 - 377 K/cmm 02/29/2020 7:02 [facility] MPV 10.5 9.5 - 12.7 fl 02/29/2020 7:02 [facility] Blood VENOUS BLOOD / Unknown Venipuncture / Unknown 02/29/2020 6:39 EDT 02/29/2020 6:51 EDT Joyce Lee MD HEMATOLOGY & PF4 ORDERABLES Shannon l Result [facility] [address] [place] [address] * (ABNORMAL) POCT GLUCOSE, INTERFACED (02/28/2020 20:40 EDT) Glucose, POC 134(H) 70 - 100 mg/dL 02/28/2020 20:[address] [facility] corporate staff accountant ID [id number] 02/28/2020 20:[address] [facility] HN LAB POC COMMENT (GLUCOSE) Test Performed by Nursing Services 02/28/2020 20:[address] [facility] Blood CAPILLARY BLOOD / Unknown 02/28/2020 20:40 EDT 02/28/2020 20:54 EDT us Kevin Rinaldi MD POINT OF CARE TEST ORDERABLES F inal Result Performing Organization Address City/[facility]/ZIP Co de Phone Number [facility] [address] [place] [address] * (ABNORMAL) POCT GLUCOSE, INTERFACED (02/28/2020 17:06 EDT) Glucose, POC 134(H) 70 - 100 mg/dL 02/28/2020 21:[address] [facility] corporate staff accountant ID [id number] 02/28/2020 21:[address] [facility] HN LAB POC COMMENT (GLUCOSE) Test Performed by Nursing Services 02/28/2020 21:[address] [facility] Blood CAPILLARY BLOOD / Unknown 02/28/2020 17:06 EDT 02/28/2020 21:25 EDT us Kevin Rinaldi MD POINT OF CARE TEST ORDERABLES F inal Result [facility] [address] [place] [address] * (ABNORMAL) POCT GLUCOSE, INTERFACED (02/28/2020 12:11 EDT) Glucose, POC 107(H) 70 - 100 mg/dL 02/28/2020 12:[address] [facility] corporate staff accountant ID [id number] 02/28/2020 12:[address] [facility] HN LAB POC COMMENT (GLUCOSE) Test Performed by Nursing Services 02/28/2020 12:[address] [facility] Blood CAPILLARY BLOOD / Unknown 02/28/2020 12:11 EDT 02/28/2020 12:16 EDT us Kevin Rinaldi MD POINT OF CARE TEST ORDERABLES F inal Result Performing Organization Address City/[facility]/ZIP Co de Phone Number [facility] [address] [place] [address] * (ABNORMAL) POCT GLUCOSE, INTERFACED (02/28/2020 8:12 EDT) Glucose, POC 117(H) 70 - 100 mg/dL 02/28/2020 8:[address] [facility] corporate staff accountant ID [id number] 02/28/2020 8:[address] [facility] HN LAB POC COMMENT (GLUCOSE) Test Performed by Nursing Services 02/28/2020 8:[address] [facility] Blood CAPILLARY BLOOD / Unknown 02/28/2020 8:12 EDT 02/28/2020 8:16 EDT us Kevin Rinaldi MD POINT OF CARE TEST ORDERABLES F inal Result [facility] [address] [place] [address] * (ABNORMAL) ELECTROLYTES (02/28/2020 5:49 EDT) Sodium 135(L) 136 - 145 mEq/L 02/28/2020 6:[address] [facility] Potassium 4.0 3.5 - 5.0 mEq/L 02/28/2020 6:[address] [facility] Chloride 103 96 - 110 mEq/L 02/28/2020 6:[address] [facility] CO2 Total 24 22 - 32 mEq/L 02/28/2020 6:[address] [facility] Blood VENOUS BLOOD / Unknown Venipuncture / Unknown 02/28/2020 5:49 EDT 02/28/2020 6:09 EDT Damon Eckert MD CHEMISTRY & BLOOD GAS ORDER [place] Final Result [facility] [address] [place] [address] * PHOSPHORUS (02/28/2020 5:49 EDT) Phosphorus 3.9 2.5 - 4.5 mg/dL 02/28/2020 6:[address] [facility] Blood VENOUS BLOOD / Unknown Venipuncture / Unknown 02/28/2020 5:49 EDT 02/28/2020 6:09 EDT Parag Eid MD CHEMISTRY & BLOOD GAS ORDERAB LES Final Result Performing Organization Address [facility]/ZIP Co de Phone Number [facility] [address] [place] [address] * MAGNESIUM (02/28/2020 5:49 EDT) Magnesium 1.8 1.7 - 2.8 mg/dL 02/28/2020 6:[address] [facility] Blood VENOUS BLOOD / Unknown Venipuncture / Unknown 02/28/2020 5:49 EDT 02/28/2020 6:09 EDT Parag Eid MD CHEMISTRY & BLOOD GAS ORDERAB LES Final Result [facility] [address] [place] [address] * PROTIME (02/28/2020 5:49 EDT) I.N.R. 1.1 0.9 - 1.1 Ratio 02/28/2020 6:[address] [facility] Pro Time 12.9 10.3 - 13.4 secs 02/28/2020 6:[address] [facility] Blood VENOUS BLOOD / Unknown Venipuncture / Unknown 02/28/2020 5:49 EDT 02/28/2020 6:[address] [facility] - 02/28/2020 6:27 EDT Moderate Intensity Coumadin INR = 2.0-3.0 Adjustments in anticoagulant therapy dose should be based on the INR and NOT on the Protime. us Parag Eid MD HEMATOLOGY & PF4 ORDERABLES F inal Result Performing Organization Address City/[facility]/ZIP Co de Phone Number [facility] [address] [place] [address] * PTT (02/28/2020 5:49 EDT) PTT 35 26 - 37 secs 02/28/2020 6:[address] [facility] Blood VENOUS BLOOD / Unknown Venipuncture / Unknown 02/28/2020 5:49 EDT 02/28/2020 6:10 EDT us Parag Eid MD HEMATOLOGY & PF4 ORDERABLES F inal Result Performing Organization Address [facility] Co de Phone Number [facility] [address] [place] [phone] * BUN (02/28/2020 5:49 EDT) BUN 19 10 - 26 mg/dL 02/28/2020 6:[address] [facility] Blood VENOUS BLOOD / Unknown Venipuncture / Unknown 02/28/2020 5:49 EDT 02/28/2020 6:09 EDT Result Miah Eid MD CHEMISTRY & BLOOD GAS ORDERAB LES Final Result Performing Organization Address City/[facility] Co de Phone Number [facility] [address] [place] [phone] * (ABNORMAL) CREATININE (02/28/2020 5:49 EDT) Creatinine 0.44(L) 0.52 - 1.04 mg/dL 02/28/2020 6:34 [facility] eGFR 116 >60 mL/min/1.7 3m2 02/28/2020 6:34 [facility] Comment:eGFR calculated mickey redd CKD-EPI equation for non- Americans. Multiply eGFR by 1.16 for patients. Blood VENOUS BLOOD / Unknown Venipuncture / Unknown 02/28/2020 5:49 EDT 02/28/2020 6:09 EDT Joyce Lee MD CHEMISTRY & BLOOD GAS ORDERABLES Final Result [facility] [address] [place] [address] * (ABNORMAL) COMPLETE BLOOD COUNT (02/28/2020 5:49 EDT) WBC 8.74 4.00 - 12.40 K/cmm 02/28/2020 6:20 [facility] RBC 3.66(L) 3.86 - 5.04 M/cmm 02/28/2020 6:20 [facility] Hemoglobin 11.8 11.6 - 15.2 gm/dL 02/28/2020 6:20 [facility] HCT 35.4 34.9 - 44.4 % 02/28/2020 6:20 [facility] MCV 97 81 - 98 fl 02/28/2020 6:20 [facility] MCH 32.2 26.7 - 33.3 pg 02/28/2020 6:20 [facility] MCHC 33.3 32.1 - 35.9 gm/dL 02/28/2020 6:20 [facility] RDW-CV 13.4 <14.7 % 02/28/2020 6:20 [facility] RDW-SD 48.4 <50.4 fl 02/28/2020 6:20 [facility] PLT 446(H) 141 - 377 K/cmm 02/28/2020 6:[address] [facility] MPV 10.9 9.5 - 12.7 fl 02/28/2020 6:[address] [facility] Blood VENOUS BLOOD / Unknown Venipuncture / Unknown 02/28/2020 5:49 EDT 02/28/2020 6:10 EDT us Joyce Lee MD HEMATOLOGY & PF4 ORDERABLES Shannon l Result Performing Organization Address City/[facility]/ZIP Co de Phone Number [facility] [address] [place] [address] * (ABNORMAL) POCT GLUCOSE, INTERFACED (02/27/2020 21:34 EDT) Glucose, POC 137(H) 70 - 100 mg/dL 02/27/2020 21:[address] [facility] corporate staff accountant ID [id number] 02/27/2020 21:[address] [facility] HN LAB POC COMMENT (GLUCOSE) Test Performed by Nursing Services 02/27/2020 21:[address] [facility] Blood CAPILLARY BLOOD / Unknown 02/27/2020 21:34 EDT 02/27/2020 21:35 EDT us Kevin Rinaldi MD POINT OF CARE TEST ORDERABLES F inal Result Performing Organization Address [facility] Co de Phone Number [facility] [address] [place] [address] * POCT GLUCOSE, INTERFACED (02/27/2020 17:33 EDT) Glucose, POC 97 70 - 100 mg/dL 02/27/2020 18:[address] [facility] corporate staff accountant ID [id number] 02/27/2020 18:[address] [facility] HN LAB POC COMMENT (GLUCOSE) Test Performed by Nursing Services 02/27/2020 18:[address] [facility] Blood CAPILLARY BLOOD / Unknown 02/27/2020 17:33 EDT 02/27/2020 18:18 EDT us Kevin Rinaldi MD POINT OF CARE TEST ORDERABLES F inal Result [facility] [address] [place] [address] * (ABNORMAL) POCT GLUCOSE, INTERFACED (02/27/2020 11:54 EDT) Glucose, POC 142(H) 70 - 100 mg/dL 02/27/2020 13:[address] [facility] corporate staff accountant ID [id number] 02/27/2020 13:[address] [facility] HN LAB POC COMMENT (GLUCOSE) Test Performed by Nursing Services 02/27/2020 13:[address] [facility] Blood CAPILLARY BLOOD / Unknown 02/27/2020 11:54 EDT 02/27/2020 13:13 EDT us Kevin Rinaldi MD POINT OF CARE TEST ORDERABLES F inal Result Performing Organization Address City/[facility]/ZIP Co de Phone Number [facility] [address] [place] [address] * POCT GLUCOSE, INTERFACED (02/27/2020 8:32 EDT) Glucose, POC 95 70 - 100 mg/dL 02/27/2020 8:[address] [facility] corporate staff accountant ID [id number] 02/27/2020 8:[address] [facility] HN LAB POC COMMENT (GLUCOSE) Test Performed by Nursing Services 02/27/2020 8:[address] [facility] Blood CAPILLARY BLOOD / Unknown 02/27/2020 8:32 EDT 02/27/2020 8:32 EDT us Kevin Rinaldi MD POINT OF CARE TEST ORDERABLES F inal Result [facility] [address] [place] [address] * ELECTROLYTES (02/27/2020 5:45 EDT) Sodium 136 136 - 145 mEq/L 02/27/2020 6:[address] [facility] Potassium 4.0 3.5 - 5.0 mEq/L 02/27/2020 6:[address] [facility] Chloride 103 96 - 110 mEq/L 02/27/2020 6:[address] [facility] CO2 Total 24 22 - 32 mEq/L 02/27/2020 6:[address] [facility] Blood VENOUS BLOOD / Unknown Venipuncture / Unknown 02/27/2020 5:45 EDT 02/27/2020 6:26 EDT Damon Eckert MD CHEMISTRY & BLOOD GAS ORDER [place] Final Result [facility] [address] [place] [address] * (ABNORMAL) PHOSPHORUS (02/27/2020 5:45 EDT) Phosphorus 4.6(H) 2.5 - 4.5 mg/dL 02/27/2020 6:[address] [facility] Blood VENOUS BLOOD / Unknown Venipuncture / Unknown 02/27/2020 5:45 EDT 02/27/2020 6:26 EDT us Parag Eid MD CHEMISTRY & BLOOD GAS ORDERAB LES Final Result Performing Organization Address City/[facility]/ZIP Co de Phone Number [facility] [address] [place] [address] * MAGNESIUM (02/27/2020 5:45 EDT) Magnesium 1.8 1.7 - 2.8 mg/dL 02/27/2020 6:[address] [facility] Blood VENOUS BLOOD / Unknown Venipuncture / Unknown 02/27/2020 5:45 EDT 02/27/2020 6:26 EDT us Parag Eid MD CHEMISTRY & BLOOD GAS ORDERAB LES Final Result [facility] [address] [place] [address] * PROTIME (02/27/2020 5:45 EDT) I.N.R. 1.1 0.9 - 1.1 Ratio 02/27/2020 6:[address] [facility] Pro Time 12.7 10.3 - 13.4 secs 02/27/2020 6:[address] [facility] Blood VENOUS BLOOD / Unknown Venipuncture / Unknown 02/27/2020 5:45 EDT 02/27/2020 6:[address] [facility] - 02/27/2020 6:42 EDT Moderate Intensity Coumadin INR = 2.0-3.0 Adjustments in anticoagulant therapy dose should be based on the INR and NOT on the Protime. us Parag Eid MD HEMATOLOGY & PF4 ORDERABLES F inal Result [facility] [address] [place] [address] * PTT (02/27/2020 5:45 EDT) PTT 35 26 - 37 secs 02/27/2020 6:[address] [facility] Blood VENOUS BLOOD / Unknown Venipuncture / Unknown 02/27/2020 5:45 EDT 02/27/2020 6:22 EDT us Parag Eid MD HEMATOLOGY & PF4 ORDERABLES F inal Result [facility] [address] [place] [address] * BUN (02/27/2020 5:45 EDT) BUN 17 10 - 26 mg/dL 02/27/2020 6:[address] [facility] Blood VENOUS BLOOD / Unknown Venipuncture / Unknown 02/27/2020 5:45 EDT 02/27/2020 6:26 EDT us Parag Eid MD CHEMISTRY & BLOOD GAS ORDERAB LES Final Result Performing Organization Address City/[facility]/ZIP Co de Phone Number [facility] [address] [place] [address] * (ABNORMAL) CREATININE (02/27/2020 5:45 EDT) Creatinine 0.49(L) 0.52 - 1.04 mg/dL 02/27/2020 6:[address] [facility] eGFR 112 >60 mL/min/1.7 3m2 02/27/2020 6:[address] [facility] Comment:eGFR calculated mickey redd CKD-EPI equation for non- Americans. Multiply eGFR by 1.16 for patients. Blood VENOUS BLOOD / Unknown Venipuncture / Unknown 02/27/2020 5:45 EDT 02/27/2020 6:26 EDT Joyce Lee MD CHEMISTRY & BLOOD GAS ORDERABLES Final Result Performing Organization Address [facility] Co de Phone Number [facility] [address] [place] [address] * (ABNORMAL) COMPLETE BLOOD COUNT (02/27/2020 5:45 EDT) WBC 9.42 4.00 - 12.40 K/cmm 02/27/2020 6:[address] [facility] RBC 3.59(L) 3.86 - 5.04 M/cmm 02/27/2020 6:36 [facility] Hemoglobin 11.5(L) 11.6 - 15.2 gm/dL 02/27/2020 6:36 [facility] HCT 34.6(L) 34.9 - 44.4 % 02/27/2020 6:36 [facility] MCV 96 81 - 98 fl 02/27/2020 6:36 [facility] MCH 32.0 26.7 - 33.3 pg 02/27/2020 6:36 [facility] MCHC 33.2 32.1 - 35.9 gm/dL 02/27/2020 6:[address] [facility] RDW-CV 13.4 <14.7 % 02/27/2020 6:[address] [facility] RDW-SD 48.1 <50.4 fl 02/27/2020 6:[address] [facility] PLT 438(H) 141 - 377 K/cmm 02/27/2020 6:[address] [facility] MPV 10.9 9.5 - 12.7 fl 02/27/2020 6:[address] [facility] Blood VENOUS BLOOD / Unknown Venipuncture / Unknown 02/27/2020 5:45 EDT 02/27/2020 6:23 EDT us Joyce Lee MD HEMATOLOGY & PF4 ORDERABLES Shannon l Result Performing Organization Address [facility] Co de Phone Number [facility] [address] [place] [address] * (ABNORMAL) POCT GLUCOSE, INTERFACED (02/26/2020 21:20 EDT) Glucose, POC 101(H) 70 - 100 mg/dL 02/26/2020 21:[address] [facility] corporate staff accountant ID [id number] 02/26/2020 21:[address] [facility] HN LAB POC COMMENT (GLUCOSE) Test Performed by Nursing Services 02/26/2020 21:[address] [facility] Blood CAPILLARY BLOOD / Unknown 02/26/2020 21:20 EDT 02/26/2020 21:29 EDT us Kevin Rinaldi MD POINT OF CARE TEST ORDERABLES F inal Result Performing Organization Address [facility] Co de Phone Number [facility] [address] [place] [address] * (ABNORMAL) POCT GLUCOSE, INTERFACED (02/26/2020 16:52 EDT) Glucose, POC 101(H) 70 - 100 mg/dL 02/26/2020 16:[address] [facility] corporate staff accountant ID [id number] 02/26/2020 16:[address] [facility] HN LAB POC COMMENT (GLUCOSE) Test Performed by Nursing Services 02/26/2020 16:[address] [facility] Blood CAPILLARY BLOOD / Unknown 02/26/2020 16:52 EDT 02/26/2020 16:56 EDT Kevin Rinaldi MD POINT OF CARE TEST ORDERABLES F inal Result Performing Organization Address [facility] Co de Phone Number [facility] [address] [place] [address] * (ABNORMAL) POCT GLUCOSE, INTERFACED (02/26/2020 11:52 EDT) Glucose, POC 118(H) 70 - 100 mg/dL 02/26/2020 11:[address] [facility] corporate staff accountant ID [id number] 02/26/2020 11:[address] [facility] HN LAB POC COMMENT (GLUCOSE) Test Performed by Nursing Services 02/26/2020 11:[address] [facility] Blood CAPILLARY BLOOD / Unknown 02/26/2020 11:52 EDT 02/26/2020 11:57 EDT Kevin Rinaldi MD POINT OF CARE TEST ORDERABLES F inal Result Performing Organization Address [facility] de Phone Number [facility] [address] [place] [address] * PNH, PI-LINKED AG, B (02/26/2020 7:51 EDT) Pathologist [facility] Interpretation SEE NOTE 03/01/2020 9:40 EDT [facility] Comment: Peripheral blood, flow cytometric immunophenotyping: Normal phenotyping results. ??No PNH clone is detected in RBC, granulocytes, or monocytes. Clinical correlation is recommended. ??Recent transfusion can decrease the sensitivity of this test and interfere with accuracy. The specimen received is satisfactory for quality analysis. Reviewed by: ??Sage Galaviz M.D., Ph.D. Testing results: ??See table ADDITIONAL INFORMATION Antibodies to the following antigens were used for cell gating and interpretation. ??RBCs: [id number] and CD59. ??WBCs: CD14, CD15, CD16, CD24, CD33, CD45, FLAER. This test was developed using an analyte specific reagent. Its performance characteristics were determined by [facility] in a manner consistent with CLIA requirements. This test has not been cleared or approved by the U.S. Food and Drug Administration. [facility] RBC-Partial Ag Loss 0.00 0.00 - 0.99 % 03/01/2020 9:40 EDT [facility] RBC-Complete Ag Loss 0.00 0.00 - 0.01 % 03/01/2020 9:40 EDT [facility] PNH Granulocytes 0.00 0.00 - 0.01 % 03/01/2020 9:40 EDT [facility] PNH Monocytes 0.00 0.00 - 0.05 % 03/01/2020 9:40 EDT [facility] Comment: Test Performed by: [address] [address] Investment Representative: Kain Shay M.D. Ph.D.; CLIA# [id number] Blood VENOUS BLOOD / Unknown Venipuncture / Unknown 02/26/2020 7:51 EDT 02/26/2020 8:05 EDT us Frank Hardwick MD HEMATOLOGY & PF4 ORDERABLES Fin al Result [address] [address] * (ABNORMAL) ELECTROLYTES (02/26/2020 7:51 EDT) Sodium 135(L) 136 - 145 mEq/L 02/26/2020 8:[address] [facility] Potassium 3.9 3.5 - 5.0 mEq/L 02/26/2020 8:[address] [facility] Chloride 105 96 - 110 mEq/L 02/26/2020 8:[address] [facility] CO2 Total 25 22 - 32 mEq/L 02/26/2020 8:[address] [facility] Blood VENOUS BLOOD / Unknown Venipuncture / Unknown 02/26/2020 7:51 EDT 02/26/2020 8:05 EDT us Damon Eckert MD CHEMISTRY & BLOOD GAS ORDER [place] Final Result Performing Organization Address City/[facility]/ZIP Co de Phone Number [facility] [address] [place] [address] * PHOSPHORUS (02/26/2020 7:51 EDT) Phosphorus 4.0 2.5 - 4.5 mg/dL 02/26/2020 8:[address] [facility] Blood VENOUS BLOOD / Unknown Venipuncture / Unknown 02/26/2020 7:51 EDT 02/26/2020 8:05 EDT us Parag Eid MD CHEMISTRY & BLOOD GAS ORDERAB LES Final Result Performing Organization Address City/[facility]/ZIP Co de Phone Number [facility] [address] [place] [address] * MAGNESIUM (02/26/2020 7:51 EDT) Magnesium 1.9 1.7 - 2.8 mg/dL 02/26/2020 8:[address] [facility] Blood VENOUS BLOOD / Unknown Venipuncture / Unknown 02/26/2020 7:51 EDT 02/26/2020 8:05 EDT us Parag Eid MD CHEMISTRY & BLOOD GAS ORDERAB LES Final Result [facility] [address] [place] [address] * PROTIME (02/26/2020 7:51 EDT) I.N.R. 1.1 0.9 - 1.1 Ratio 02/26/2020 8:[address] [facility] Pro Time 12.8 10.3 - 13.4 secs 02/26/2020 8:[address] [facility] Blood VENOUS BLOOD / Unknown Venipuncture / Unknown 02/26/2020 7:51 EDT 02/26/2020 8:[address] [facility] - 02/26/2020 8:32 EDT Moderate Intensity Coumadin INR = 2.0-3.0 Adjustments in anticoagulant therapy dose should be based on the INR and NOT on the Protime. Parag Eid MD HEMATOLOGY & PF4 ORDERABLES F inal Result Performing Organization Address City/[facility]/ZIP Co de Phone Number [facility] [address] [place] [address] * PTT (02/26/2020 7:51 EDT) PTT 34 26 - 37 secs 02/26/2020 8:[address] [facility] Blood VENOUS BLOOD / Unknown Venipuncture / Unknown 02/26/2020 7:51 EDT 02/26/2020 8:05 EDT Parag Eid MD HEMATOLOGY & PF4 ORDERABLES F inal Result Performing Organization Address [facility] Co de Phone Number [facility] [address] [place] [address] * BUN (02/26/2020 7:51 EDT) BUN 16 10 - 26 mg/dL 02/26/2020 8:[address] [facility] Blood VENOUS BLOOD / Unknown Venipuncture / Unknown 02/26/2020 7:51 EDT 02/26/2020 8:05 EDT us Parag Eid MD CHEMISTRY & BLOOD GAS ORDERAB LES Final Result Performing Organization Address [facility] Co de Phone Number [facility] [address] [place] [address] * (ABNORMAL) CREATININE (02/26/2020 7:51 EDT) Creatinine 0.47(L) 0.52 - 1.04 mg/dL 02/26/2020 8:38 [facility] eGFR 114 >60 mL/min/1.7 3m2 02/26/2020 8:38 [facility] Comment:eGFR calculated mickey redd CKD-EPI equation for non- Americans. Multiply eGFR by 1.16 for patients. Blood VENOUS BLOOD / Unknown Venipuncture / Unknown 02/26/2020 7:51 EDT 02/26/2020 8:05 EDT us Joyce Lee MD CHEMISTRY & BLOOD GAS ORDERABLES Final Result [facility] [address] [place] [address] * (ABNORMAL) COMPLETE BLOOD COUNT (02/26/2020 7:51 EDT) WBC 9.19 4.00 - 12.40 K/cmm 02/26/2020 8:12 [facility] RBC 3.26(L) 3.86 - 5.04 M/cmm 02/26/2020 8:12 [facility] Hemoglobin 10.9(L) 11.6 - 15.2 gm/dL 02/26/2020 8:12 [facility] HCT 31.6(L) 34.9 - 44.4 % 02/26/2020 8:12 [facility] MCV 97 81 - 98 fl 02/26/2020 8:12 [facility] MCH 33.4(H) 26.7 - 33.3 pg 02/26/2020 8:12 [facility] MCHC 34.5 32.1 - 35.9 gm/dL 02/26/2020 8:12 [facility] RDW-CV 13.6 <14.7 % 02/26/2020 8:12 [facility] RDW-SD 48.6 <50.4 fl 02/26/2020 8:12 [facility] PLT 376 141 - 377 K/cmm 02/26/2020 8:12 [facility] MPV 10.2 9.5 - 12.7 fl 02/26/2020 8:[address] [facility] Blood VENOUS BLOOD / Unknown Venipuncture / Unknown 02/26/2020 7:51 EDT 02/26/2020 8:05 EDT Joyce Lee MD HEMATOLOGY & PF4 ORDERABLES Shannon l Result Performing Organization Address City/[facility]/ZIP Co de Phone Number [facility] [address] [place] [address] * POCT GLUCOSE, INTERFACED (02/25/2020 21:34 EDT) Glucose, POC 94 70 - 100 mg/dL 02/25/2020 21:[address] [facility] corporate staff accountant ID [id number] 02/25/2020 21:[address] [facility] HN LAB POC COMMENT (GLUCOSE) Test Performed by Nursing Services 02/25/2020 21:[address] [facility] Blood CAPILLARY BLOOD / Unknown 02/25/2020 21:34 EDT 02/25/2020 21:39 EDT Kevin Rinaldi MD POINT OF CARE TEST ORDERABLES F inal Result Performing Organization Address [facility] Co de Phone Number [facility] [address] [place] [address] * (ABNORMAL) POCT GLUCOSE, INTERFACED (02/25/2020 19:15 EDT) Glucose, POC 124(H) 70 - 100 mg/dL 02/25/2020 19:[address] [facility] corporate staff accountant ID [id number] 02/25/2020 19:[address] [facility] HN LAB POC COMMENT (GLUCOSE) Test Performed by Nursing Services 02/25/2020 19:[address] [facility] Blood CAPILLARY BLOOD / Unknown 02/25/2020 19:15 EDT 02/25/2020 19:15 EDT Kevin Rinaldi MD POINT OF CARE TEST ORDERABLES F inal Result Performing Organization Address City/[facility]/ZIP Co de Phone Number [facility] [address] [place] [address] * (ABNORMAL) POCT GLUCOSE, INTERFACED (02/25/2020 17:18 EDT) [facility] Glucose, POC 127(H) 70 - 100 mg/dL 02/25/2020 17:[address] [facility] corporate staff accountant ID [id number] 02/25/2020 17:[address] [facility] HN LAB POC COMMENT (GLUCOSE) Test Performed by Nursing Services 02/25/2020 17:[address] [facility] Blood CAPILLARY BLOOD / Unknown 02/25/2020 17:18 EDT 02/25/2020 17:29 EDT Kevin Rinaldi MD POINT OF CARE TEST ORDERABLES F inal Result Performing Organization Address [facility] de Phone Number [facility] [address] [place] [address] * CT HEAD VENOGRAM W CONTRAST (02/25/2020 12:41 EDT) Anatomical Region Laterality Modality Head Computed Tomogra phy 02/25/2020 13:3 7 EDT Impressions 02/25/2020 13:37 EDT 1. Overall stable appearance of multicompartment intracranial hemorrhage and postsurgical changes from evacuation of a left temporoparietal hematoma. 2. Improved thrombus burden within the left transverse and sigmoid sinuses. 3. Residual thrombus within the left vein of Kristen. There is no opacification of a posterior peripheral tributary to the vein of Kristen, a finding which has progressed since the 02/17/2020 CT venogram. I have personally reviewed the images and the above interpretation and agree with the findings. Narrative 02/25/2020 13:37 EDT EXAM: CT HEAD WO CONTRAST CT VENOGRAM HEAD W CONTRAST HISTORY: Dural venous sinus thrombosis suspected COMPARISON: CT head 02/22/2020, CT venogram 02/17/2020. TECHNIQUE: CT head without contrast. CT venogram of the head with intravenous contrast. Maximal intensity projected reformatted images were obtained, adjusted on an independent workstation, and reviewed prior to interpretation. Structured report code: [id number] FINDINGS: CT HEAD: PARENCHYMA: Postsurgical changes related to left temporoparietal hematoma evacuation are again noted with stable to minimally improved appearance of the residual blood products predominantly within the left temporal lobe. Surrounding vasogenic edema with approximately 6 mm of rightward midline shift is unchanged. No new parenchymal hemorrhage. EXTRA-AXIAL SPACES: Trace residual subarachnoid hemorrhage over the lateral left temporal convexity, unchanged. There is focal bulging of the tendon dura along the left frontal operculum (coronal image 71, series 205), slightly more pronounced than on the prior examination. VENTRICULAR SYSTEM: No intraventricular hemorrhage is appreciated. Mass effect on the left lateral ventricle is slightly improved. BONES: Unremarkable aside from postsurgical change. 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 ORBITS: No significant abnormality. PARANASAL SINUSES/MASTOID AIR CELLS: Several opacified mastoid air cells are present on the left. EXTRACRANIAL SOFT TISSUES: Unremarkable aside from postsurgical change. CTV HEAD: VEINS: There is residual thrombus within the left transverse and sigmoid sinus, improved compared to the 02/17/2020 CT venogram. Residual thrombus is also present within the left vein of Kristen at its confluence with the left transverse/sigmoid sinus. There is no opacification of the posterior tributaries of the vein of Kristen more peripherally, a finding which has progressed since the prior CT venogram. No new thrombus is identified. ARTERIES: While evaluation of the arteries is limited on venous phase imaging, there is no evidence of arterial stenosis, aneurysm, or other arterial abnormality. Procedure Note Shawn Anton MD - 02/25/2020 EXAM: CT HEAD WO CONTRAST CT VENOGRAM HEAD W CONTRAST HISTORY: Dural venous sinus thrombosis suspected COMPARISON: CT head 02/22/2020, CT venogram 02/17/2020. TECHNIQUE: CT head without contrast. CT venogram of the head withintravenous contrast. Maximal intensity projected reformatted images wereobtained, adjusted on an independent workstation, and reviewed prior tointerpretation. Structured report code: [email or web address].[id number] FINDINGS: CT HEAD: PARENCHYMA: Postsurgical changes related to left temporoparietal hematoma evacuationare again noted with stable to minimally improved appearance of theresidual blood products predominantly within the left temporal lobe.Surrounding vasogenic edema with approximately 6 mm of rightward midlineshift is unchanged. No new parenchymal hemorrhage. EXTRA-AXIAL SPACES: Trace residual subarachnoid hemorrhage over the lateral left temporalconvexity, unchanged. There is focal bulging of the tendon dura along theleft frontal operculum (coronal image 71, series 205), slightly morepronounced than on the prior examination. VENTRICULAR SYSTEM: No intraventricular hemorrhage is appreciated. Mass effect on the leftlateral ventricle is slightly improved. BONES: Unremarkable aside from postsurgical change. Severe bilateraltemporomandibular joint degenerative changes are again noted. ORBITS: No significant abnormality. PARANASAL SINUSES/MASTOID AIR CELLS: Several opacified mastoid air cells are present on the left. EXTRACRANIAL SOFT TISSUES: Unremarkable aside from postsurgical change. CTV HEAD: VEINS: There is residual thrombus within the left transverse and sigmoid sinus,improved compared to the 02/17/2020 CT venogram. Residual thrombus is also present within the left vein of Kristen at itsconfluence with the left transverse/sigmoid sinus. There is noopacification of the posterior tributaries of the vein of Kristen moreperipherally, a finding which has progressed since the prior CT venogram. No new thrombus is identified. ARTERIES: While evaluation of the arteries is limited on venous phase imaging, thereis no evidence of arterial stenosis, aneurysm, or other arterialabnormality. IMPRESSION 1. Overall stable appearance of multicompartment intracranial hemorrhageand postsurgical changes from evacuation of a left temporoparietalhematoma. 2. Improved thrombus burden within the left transverse and sigmoidsinuses. 3. Residual thrombus within the left vein of Kristen. There is noopacification of a posterior peripheral tributary to the vein of Kristen, afinding which has progressed since the 02/17/2020 CT venogram. I have personally reviewed the images and the above interpretation andagree with the findings. Kevin Rinaldi MD IM CT ORDERABLES Final Result * (ABNORMAL) POCT GLUCOSE, INTERFACED (02/25/2020 7:40 EDT) Glucose, POC 102(H) 70 - 100 mg/dL 02/25/2020 7:[address] [facility] corporate staff accountant ID [id number] 02/25/2020 7:[address] [facility] HN LAB POC COMMENT (GLUCOSE) Test Performed by Nursing Services 02/25/2020 7:[address] [facility] Blood CAPILLARY BLOOD / Unknown 02/25/2020 7:40 EDT 02/25/2020 7:48 EDT us Kevin Rinaldi MD POINT OF CARE TEST ORDERABLES F inal Result Performing Organization Address [facility] Co de Phone Number [facility] [address] [place] [address] * ELECTROLYTES (02/25/2020 6:18 EDT) Sodium 137 136 - 145 mEq/L 02/25/2020 7:[address] [facility] Potassium 3.9 3.5 - 5.0 mEq/L 02/25/2020 7:[address] [facility] Chloride 107 96 - 110 mEq/L 02/25/2020 7:[address] [facility] CO2 Total 23 22 - 32 mEq/L 02/25/2020 7:[address] [facility] Blood VENOUS BLOOD / Unknown Venipuncture / Unknown 02/25/2020 6:18 EDT 02/25/2020 6:48 EDT us Damon Eckert MD CHEMISTRY & BLOOD GAS ORDER [place] Final Result Performing Organization Address [facility] Co de Phone Number [facility] [address] [place] [address] * PHOSPHORUS (02/25/2020 6:18 EDT) Phosphorus 3.9 2.5 - 4.5 mg/dL 02/25/2020 7:[address] [facility] Blood VENOUS BLOOD / Unknown Venipuncture / Unknown 02/25/2020 6:18 EDT 02/25/2020 6:48 EDT us Parag Eid MD CHEMISTRY & BLOOD GAS ORDERAB LES Final Result Performing Organization Address City/[facility] Co de Phone Number [facility] [address] [place] [address] * MAGNESIUM (02/25/2020 6:18 EDT) Magnesium 2.0 1.7 - 2.8 mg/dL 02/25/2020 7:[address] [facility] Blood VENOUS BLOOD / Unknown Venipuncture / Unknown 02/25/2020 6:18 EDT 02/25/2020 6:48 EDT Parag Eid MD CHEMISTRY & BLOOD GAS ORDERAB LES Final Result Performing Organization Address [facility] Co de Phone Number [facility] [address] [place] [address] * PROTIME (02/25/2020 6:18 EDT) Pathologist [facility] I.N.R. 1.1 0.9 - 1.1 Ratio 02/25/2020 7:[address] [facility] Pro Time 13.3 10.3 - 13.4 secs 02/25/2020 7:[address] [facility] Blood VENOUS BLOOD / Unknown Venipuncture / Unknown 02/25/2020 6:18 EDT 02/25/2020 6:[address] [facility] - 02/25/2020 7:07 EDT Moderate Intensity Coumadin INR = 2.0-3.0 Adjustments in anticoagulant therapy dose should be based on the INR and NOT on the Protime. Parag Eid MD HEMATOLOGY & PF4 ORDERABLES F inal Result [facility] [address] [place] [address] * PTT (02/25/2020 6:18 EDT) PTT 35 26 - 37 secs 02/25/2020 7:[address] [facility] Blood VENOUS BLOOD / Unknown Venipuncture / Unknown 02/25/2020 6:18 EDT 02/25/2020 6:48 EDT Parag Eid MD HEMATOLOGY & PF4 ORDERABLES F inal Result Performing Organization Address City/[facility]/ZIP Co de Phone Number [facility] [address] [place] [address] * BUN (02/25/2020 6:18 EDT) BUN 16 10 - 26 mg/dL 02/25/2020 7:[address] [facility] Blood VENOUS BLOOD / Unknown Venipuncture / Unknown 02/25/2020 6:18 EDT 02/25/2020 6:48 EDT Parag Eid MD CHEMISTRY & BLOOD GAS ORDERAB LES Final Result Performing Organization Address [facility] de Phone Number [facility] [address] [place] [address] * (ABNORMAL) CREATININE (02/25/2020 6:18 EDT) Creatinine 0.45(L) 0.52 - 1.04 mg/dL 02/25/2020 7:[address] [facility] eGFR 116 >60 mL/min/1.7 3m2 02/25/2020 7:[address] [facility] Comment:eGFR calculated mickey redd CKD-EPI equation for non- Americans. Multiply eGFR by 1.16 for patients. Blood VENOUS BLOOD / Unknown Venipuncture / Unknown 02/25/2020 6:18 EDT 02/25/2020 6:48 EDT Joyce Lee MD CHEMISTRY & BLOOD GAS ORDERABLES Final Result Performing Organization Address [facility]/ZIP Co de Phone Number [facility] [address] [place] [address] * (ABNORMAL) COMPLETE BLOOD COUNT (02/25/2020 6:18 EDT) WBC 8.98 4.00 - 12.40 K/cmm 02/25/2020 6:[address] [facility] RBC 3.44(L) 3.86 - 5.04 M/cmm 02/25/2020 6:[address] [facility] Hemoglobin 11.3(L) 11.6 - 15.2 gm/dL 02/25/2020 6:[address] [facility] HCT 32.8(L) 34.9 - 44.4 % 02/25/2020 6:58 [facility] MCV 95 81 - 98 fl 02/25/2020 6:[address] [facility] MCH 32.8 26.7 - 33.3 pg 02/25/2020 6:58 [facility] MCHC 34.5 32.1 - 35.9 gm/dL 02/25/2020 6:58 [facility] RDW-CV 13.7 <14.7 % 02/25/2020 6:58 [facility] RDW-SD 47.8 <50.4 fl 02/25/2020 6:58 [facility] PLT 365 141 - 377 K/cmm 02/25/2020 6:58 [facility] MPV 10.6 9.5 - 12.7 fl 02/25/2020 6:58 [facility] Blood VENOUS BLOOD / Unknown Venipuncture / Unknown 02/25/2020 6:18 EDT 02/25/2020 6:48 EDT us Joyce Lee MD HEMATOLOGY & PF4 ORDERABLES Shannon l Result [facility] [address] [place] [address] * POCT GLUCOSE, INTERFACED (02/24/2020 21:00 EDT) Glucose, POC 94 70 - 100 mg/dL 02/24/2020 21:02 [facility] corporate staff accountant ID [id number] 02/24/2020 21:02 [facility] HN LAB POC COMMENT (GLUCOSE) Test Performed by Nursing Services 02/24/2020 21:02 [facility] Blood CAPILLARY BLOOD / Unknown 02/24/2020 21:00 EDT 02/24/2020 21:02 EDT Kevin Rinaldi MD POINT OF CARE TEST ORDERABLES F inal Result [facility] [address] [place] [address] * (ABNORMAL) POCT GLUCOSE, INTERFACED (02/24/2020 17:33 EDT) Glucose, POC 137(H) 70 - 100 mg/dL 02/24/2020 17:[address] [facility] corporate staff accountant ID [id number] 02/24/2020 17:[address] [facility] HN LAB POC COMMENT (GLUCOSE) Test Performed by Nursing Services 02/24/2020 17:[address] [facility] Blood CAPILLARY BLOOD / Unknown 02/24/2020 17:33 EDT 02/24/2020 17:38 EDT us Claus Piña MD POINT OF CARE TEST ORDERABLES Fi nal Result [facility] [address] [place] [address] * POCT GLUCOSE, INTERFACED (02/24/2020 16:16 EDT) Glucose, POC 92 70 - 100 mg/dL 02/24/2020 16:[address] [facility] corporate staff accountant ID [id number] 02/24/2020 16:[address] [facility] HN LAB POC COMMENT (GLUCOSE) Test Performed by Nursing Services 02/24/2020 16:[address] [facility] Blood CAPILLARY BLOOD / Unknown 02/24/2020 16:16 EDT 02/24/2020 16:20 EDT us Kevin Rinaldi MD POINT OF CARE TEST ORDERABLES F inal Result [facility] [address] [place] [address] * POCT GLUCOSE, INTERFACED (02/24/2020 12:20 EDT) Glucose, POC 94 70 - 100 mg/dL 02/24/2020 12:[address] [facility] corporate staff accountant ID [id number] 02/24/2020 12:[address] [facility] HN LAB POC COMMENT (GLUCOSE) Test Performed by Nursing Services 02/24/2020 12:[address] [facility] Blood CAPILLARY BLOOD / Unknown 02/24/2020 12:20 EDT 02/24/2020 12:21 EDT us Kevin Rinaldi MD POINT OF CARE TEST ORDERABLES F inal Result [facility] [address] [place] [address] * ECG REPORT - SCANNED (02/24/2020 11:30 EDT) 02/24/2020 11:3 0 EDT us Scan 2 Psychiatric Aide Instructor PROCEDURE/MINOR SURGICAL OR DERABLES Final Result * EKG 12-LEAD (02/24/2020 11:15 EDT) 02/24/2020 11:[address] [facility] - 02/24/2020 11:20 EDT ? [facility] ? Test Date: ?2020-02-24 Pat Name: ? YNES WHITE ? Department: ?? [place] [address] ? Room: ? [id number] Gender: ? Female ? 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 [id number] : ?1970 ? Requested By: NevaehBEBETO PARAG Order Number: [id number] ? [place] POP: ?? KAIN VARNER MD ? Measurements Intervals ?[place] ? Rate: ? 89 ? P: ?56 WA: ? 126 ?QRS: ?28 QRSD: ? 83 ? T: ?19 QT: ? 368 ? QTc: ?449 ? Interpretive Statements SINUS RHYTHM RSr' PATTERN IN LEAD V1 Compared to ECG 02/15/2020 01:52:35 The heart rate has increased I reviewed the tracing and have either agreed or edited the findings in this report. Electronically Signed On 02-24-2020 11:20:59 EDT by KAIN VARNER MD. 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 Electronically Signed On 02-24-2020 11:20:59 EDT by KAIN ALMENDAREZ. us Parag Eid MD CARDIAC ECG ORDERABLES Final Result [facility] * POCT GLUCOSE, INTERFACED (02/24/2020 7:29 EDT) Glucose, POC 100 70 - 100 mg/dL 02/24/2020 7:[address] [facility] corporate staff accountant ID [id number] 02/24/2020 7:[address] [facility] HN LAB POC COMMENT (GLUCOSE) Test Performed by Nursing Services 02/24/2020 7:[address] [facility] Blood CAPILLARY BLOOD / Unknown 02/24/2020 7:29 EDT 02/24/2020 7:30 EDT us Kevin Rinaldi MD POINT OF CARE TEST ORDERABLES F inal Result [facility] [address] [place] [address] * ELECTROLYTES (02/24/2020 5:58 EDT) Sodium 136 136 - 145 mEq/L 02/24/2020 6:[address] [facility] Potassium 3.6 3.5 - 5.0 mEq/L 02/24/2020 6:[address] [facility] Chloride 107 96 - 110 mEq/L 02/24/2020 6:[address] [facility] CO2 Total 22 22 - 32 mEq/L 02/24/2020 6:[address] [facility] Blood VENOUS BLOOD / Unknown Venipuncture / Unknown 02/24/2020 5:58 EDT 02/24/2020 6:21 EDT us Damon Eckert MD CHEMISTRY & BLOOD GAS ORDER [place] Final Result Performing Organization Address City/[facility] Co de Phone Number [facility] [address] [place] [address] * PHOSPHORUS (02/24/2020 5:58 EDT) Phosphorus 3.8 2.5 - 4.5 mg/dL 02/24/2020 6:[address] [facility] Blood VENOUS BLOOD / Unknown Venipuncture / Unknown 02/24/2020 5:58 EDT 02/24/2020 6:21 EDT us Parag Eid MD CHEMISTRY & BLOOD GAS ORDERAB LES Final Result Performing Organization Address City/[facility]/ZIP Co de Phone Number [facility] [address] [place] [address] * MAGNESIUM (02/24/2020 5:58 EDT) Magnesium 2.0 1.7 - 2.8 mg/dL 02/24/2020 6:[address] [facility] Blood VENOUS BLOOD / Unknown Venipuncture / Unknown 02/24/2020 5:58 EDT 02/24/2020 6:21 EDT us Parag Eid MD CHEMISTRY & BLOOD GAS ORDERAB LES Final Result [facility] [address] [place] [address] * (ABNORMAL) PROTIME (02/24/2020 5:58 EDT) I.N.R. 1.2(H) 0.9 - 1.1 Ratio 02/24/2020 6:[address] [facility] Pro Time 13.5(H) 10.3 - 13.4 secs 02/24/2020 6:[address] [facility] Blood VENOUS BLOOD / Unknown Venipuncture / Unknown 02/24/2020 5:58 EDT 02/24/2020 6:[address] [facility] - 02/24/2020 6:53 EDT Moderate Intensity Coumadin INR = 2.0-3.0 Adjustments in anticoagulant therapy dose should be based on the INR and NOT on the Protime. Parag Eid MD HEMATOLOGY & PF4 ORDERABLES F inal Result [facility] [address] [place] [address] * PTT (02/24/2020 5:58 EDT) PTT 37 26 - 37 secs 02/24/2020 6:[address] [facility] Blood VENOUS BLOOD / Unknown Venipuncture / Unknown 02/24/2020 5:58 EDT 02/24/2020 6:21 EDT Parag Eid MD HEMATOLOGY & PF4 ORDERABLES F inal Result [facility] [address] [place] [address] * BUN (02/24/2020 5:58 EDT) BUN 17 10 - 26 mg/dL 02/24/2020 6:[address] [facility] Blood VENOUS BLOOD / Unknown Venipuncture / Unknown 02/24/2020 5:58 EDT 02/24/2020 6:21 EDT Parag Eid MD CHEMISTRY & BLOOD GAS ORDERAB LES Final Result Performing Organization Address [facility] Co de Phone Number [facility] [address] [place] [address] * (ABNORMAL) CREATININE (02/24/2020 5:58 EDT) Creatinine 0.42(L) 0.52 - 1.04 mg/dL 02/24/2020 6:[address] [facility] eGFR 118 >60 mL/min/1.7 3m2 02/24/2020 6:[address] [facility] Comment:eGFR calculated mickey redd CKD-EPI equation for non- Americans. Multiply eGFR by 1.16 for patients. Blood VENOUS BLOOD / Unknown Venipuncture / Unknown 02/24/2020 5:58 EDT 02/24/2020 6:21 EDT Joyce Lee MD CHEMISTRY & BLOOD GAS ORDERABLES Final Result Performing Organization Address [facility] Co de Phone Number [facility] [address] [place] [address] * (ABNORMAL) COMPLETE BLOOD COUNT (02/24/2020 5:58 EDT) WBC 8.14 4.00 - 12.40 K/cmm 02/24/2020 6:[address] [facility] RBC 3.26(L) 3.86 - 5.04 M/cmm 02/24/2020 6:[address] [facility] Hemoglobin 10.8(L) 11.6 - 15.2 gm/dL 02/24/2020 6:37 [facility] HCT 31.7(L) 34.9 - 44.4 % 02/24/2020 6:37 [facility] MCV 97 81 - 98 fl 02/24/2020 6:37 [facility] MCH 33.1 26.7 - 33.3 pg 02/24/2020 6:37 [facility] MCHC 34.1 32.1 - 35.9 gm/dL 02/24/2020 6:[address] [facility] RDW-CV 13.4 <14.7 % 02/24/2020 6:[address] [facility] RDW-SD 48.2 <50.4 fl 02/24/2020 6:[address] [facility] PLT 326 141 - 377 K/cmm 02/24/2020 6:[address] [facility] MPV 10.5 9.5 - 12.7 fl 02/24/2020 6:[address] [facility] Blood VENOUS BLOOD / Unknown Venipuncture / Unknown 02/24/2020 5:58 EDT 02/24/2020 6:20 EDT us Joyce Lee MD HEMATOLOGY & PF4 ORDERABLES Shannon l Result Performing Organization Address City/[facility]/ZIP Co de Phone Number [facility] [address] [place] [address] * (ABNORMAL) ELECTROLYTES (02/23/2020 21:35 EDT) Sodium 136 136 - 145 mEq/L 02/23/2020 21:[address] [facility] Potassium 3.9 3.5 - 5.0 mEq/L 02/23/2020 21:[address] [facility] Chloride 109 96 - 110 mEq/L 02/23/2020 21:[address] [facility] CO2 Total 21(L) 22 - 32 mEq/L 02/23/2020 21:[address] [facility] Blood VENOUS BLOOD / Unknown Venipuncture / Unknown 02/23/2020 21:35 EDT 02/23/2020 21:38 EDT us Parag Eid MD CHEMISTRY & BLOOD GAS ORDERAB LES Final Result [facility] [address] [place] [address] * POCT GLUCOSE, INTERFACED (02/23/2020 21:23 EDT) Glucose, POC 96 70 - 100 mg/dL 02/23/2020 22:[address] [facility] corporate staff accountant ID [id number] 02/23/2020 22:[address] [facility] HN LAB POC COMMENT (GLUCOSE) Test Performed by Nursing Services 02/23/2020 22:[address] [facility] Blood CAPILLARY BLOOD / Unknown 02/23/2020 21:23 EDT 02/23/2020 22:12 EDT Kevin Rinaldi MD POINT OF CARE TEST ORDERABLES F inal Result Performing Organization Address City/[facility]/ZIP Co de Phone Number [facility] [address] [place] [address] * POCT GLUCOSE, INTERFACED (02/23/2020 17:24 EDT) Glucose, POC 99 70 - 100 mg/dL 02/23/2020 17:[address] [facility] corporate staff accountant ID [id number] 02/23/2020 17:[address] [facility] HN LAB POC COMMENT (GLUCOSE) Test Performed by Nursing Services 02/23/2020 17:[address] [facility] Blood CAPILLARY BLOOD / Unknown 02/23/2020 17:24 EDT 02/23/2020 17:53 EDT us Kevin Rinaldi MD POINT OF CARE TEST ORDERABLES F inal Result Performing Organization Address City/[facility]/ZIP Co de Phone Number [facility] [address] [place] [address] * (ABNORMAL) ELECTROLYTES (02/23/2020 14:33 EDT) Sodium 137 136 - 145 mEq/L 02/23/2020 15:[address] [facility] Potassium 3.8 3.5 - 5.0 mEq/L 02/23/2020 15:[address] [facility] Chloride 108 96 - 110 mEq/L 02/23/2020 15:[address] [facility] CO2 Total 21(L) 22 - 32 mEq/L 02/23/2020 15:[address] [facility] Blood VENOUS BLOOD / Unknown Venipuncture / Unknown 02/23/2020 14:33 EDT 02/23/2020 15:03 EDT us Parag Eid MD CHEMISTRY & BLOOD GAS ORDERAB LES Final Result [facility] [address] [place] [address] * (ABNORMAL) POCT GLUCOSE, INTERFACED (02/23/2020 12:12 EDT) Glucose, POC 101(H) 70 - 100 mg/dL 02/23/2020 12:[address] [facility] corporate staff accountant ID [id number] 02/23/2020 12:[address] [facility] HN LAB POC COMMENT (GLUCOSE) Test Performed by Nursing Services 02/23/2020 12:[address] [facility] Blood CAPILLARY BLOOD / Unknown 02/23/2020 12:12 EDT 02/23/2020 12:19 EDT Kevin Rinaldi MD POINT OF CARE TEST ORDERABLES F inal Result [facility] [address] [place] [address] * POCT GLUCOSE, INTERFACED (02/23/2020 7:17 EDT) Glucose, POC 89 70 - 100 mg/dL 02/23/2020 7:[address] [facility] corporate staff accountant ID [id number] 02/23/2020 7:[address] [facility] HN LAB POC COMMENT (GLUCOSE) Test Performed by Nursing Services 02/23/2020 7:[address] [facility] Blood CAPILLARY BLOOD / Unknown 02/23/2020 7:17 EDT 02/23/2020 7:19 EDT Kevin Rinaldi MD POINT OF CARE TEST ORDERABLES F inal Result [facility] [address] [place] [address] * (ABNORMAL) ELECTROLYTES (02/23/2020 5:42 EDT) Sodium 136 136 - 145 mEq/L 02/23/2020 6:[address] [facility] Potassium 3.4(L) 3.5 - 5.0 mEq/L 02/23/2020 6:[address] [facility] Chloride 110 96 - 110 mEq/L 02/23/2020 6:[address] [facility] CO2 Total 19(L) 22 - 32 mEq/L 02/23/2020 6:[address] [facility] Blood VENOUS BLOOD / Unknown Venipuncture / Unknown 02/23/2020 5:42 EDT 02/23/2020 6:08 EDT Parag Eid MD CHEMISTRY & BLOOD GAS ORDERAB LES Final Result Performing Organization Address City/[facility]/ZIP Co de Phone Number [facility] [address] [place] [address] * PHOSPHORUS (02/23/2020 5:42 EDT) Phosphorus 3.6 2.5 - 4.5 mg/dL 02/23/2020 6:[address] [facility] Blood VENOUS BLOOD / Unknown Venipuncture / Unknown 02/23/2020 5:42 EDT 02/23/2020 6:08 EDT Parag Eid MD CHEMISTRY & BLOOD GAS ORDERAB LES Final Result [facility] [address] [place] [phone] * MAGNESIUM (02/23/2020 5:42 EDT) Magnesium 1.9 1.7 - 2.8 mg/dL 02/23/2020 6:[address] [facility] Blood VENOUS BLOOD / Unknown Venipuncture / Unknown 02/23/2020 5:42 EDT 02/23/2020 6:08 EDT Parag Eid MD CHEMISTRY & BLOOD GAS ORDERAB LES Final Result [facility] [address] [place] [address] * (ABNORMAL) PROTIME (02/23/2020 5:42 EDT) I.N.R. 1.3(H) 0.9 - 1.1 Ratio 02/23/2020 7:[address] [facility] Pro Time 14.9(H) 10.3 - 13.4 secs 02/23/2020 7:[address] [facility] Blood VENOUS BLOOD / Unknown Venipuncture / Unknown 02/23/2020 5:42 EDT 02/23/2020 6:[address] [facility] - 02/23/2020 7:07 EDT Moderate Intensity Coumadin INR = 2.0-3.0 Adjustments in anticoagulant therapy dose should be based on the INR and NOT on the Protime. Parag Eid MD HEMATOLOGY & PF4 ORDERABLES F inal Result Performing Organization Address City/[facility]/ZIP Co de Phone Number [facility] [address] [place] [id number] * PTT (02/23/2020 5:42 EDT) PTT 35 26 - 37 secs 02/23/2020 7:[address] [facility] Blood VENOUS BLOOD / Unknown Venipuncture / Unknown 02/23/2020 5:42 EDT 02/23/2020 6:06 EDT Parag Eid MD HEMATOLOGY & PF4 ORDERABLES F inal Result [facility] [address] [place] [address] * BUN (02/23/2020 5:42 EDT) BUN 18 10 - 26 mg/dL 02/23/2020 6:[address] [facility] Blood VENOUS BLOOD / Unknown Venipuncture / Unknown 02/23/2020 5:42 EDT 02/23/2020 6:08 EDT Parag Eid MD CHEMISTRY & BLOOD GAS ORDERAB LES Final Result Performing Organization Address [facility]/ZIP Co de Phone Number [facility] [address] [place] [address] * (ABNORMAL) CREATININE (02/23/2020 5:42 EDT) Creatinine 0.47(L) 0.52 - 1.04 mg/dL 02/23/2020 6:[address] [facility] eGFR 114 >60 mL/min/1.7 3m2 02/23/2020 6:[address] [facility] Comment:eGFR calculated mickey redd CKD-EPI equation for non- Americans. Multiply eGFR by 1.16 for patients. Blood VENOUS BLOOD / Unknown Venipuncture / Unknown 02/23/2020 5:42 EDT 02/23/2020 6:08 EDT us Joyce Lee MD CHEMISTRY & BLOOD GAS ORDERABLES Final Result Performing Organization Address City/[facility]/ZIP Co de Phone Number [facility] [address] [place] [address] * (ABNORMAL) COMPLETE BLOOD COUNT (02/23/2020 5:42 EDT) WBC 8.07 4.00 - 12.40 K/cmm 02/23/2020 6:[address] [facility] RBC 3.34(L) 3.86 - 5.04 M/cmm 02/23/2020 6:[address] [facility] Hemoglobin 10.9(L) 11.6 - 15.2 gm/dL 02/23/2020 6:[address] [facility] HCT 32.5(L) 34.9 - 44.4 % 02/23/2020 6:[address] [facility] MCV 97 81 - 98 fl 02/23/2020 6:[address] [facility] MCH 32.6 26.7 - 33.3 pg 02/23/2020 6:[address] [facility] MCHC 33.5 32.1 - 35.9 gm/dL 02/23/2020 6:[address] [facility] RDW-CV 13.8 <14.7 % 02/23/2020 6:[address] [facility] RDW-SD 49.6 <50.4 fl 02/23/2020 6:[address] [facility] PLT 301 141 - 377 K/cmm 02/23/2020 6:[address] [facility] MPV 10.5 9.5 - 12.7 fl 02/23/2020 6:[address] [facility] Blood VENOUS BLOOD / Unknown Venipuncture / Unknown 02/23/2020 5:42 EDT 02/23/2020 6:07 EDT Joyce Lee MD HEMATOLOGY & PF4 ORDERABLES Shannon l Result [facility] [address] [place] [address] * (ABNORMAL) ELECTROLYTES (02/22/2020 21:27 EDT) Sodium 138 136 - 145 mEq/L 02/22/2020 21:[address] [facility] Potassium 3.7 3.5 - 5.0 mEq/L 02/22/2020 21:[address] [facility] Comment:Slight hemolysis rodrigo ntified, interpret with caution as hemolysis will elevate potassium result. Chloride 113(H) 96 - 110 mEq/L 02/22/2020 21:[address] [facility] CO2 Total 18(L) 22 - 32 mEq/L 02/22/2020 21:[address] [facility] Blood VENOUS BLOOD / Unknown Venipuncture / Unknown 02/22/2020 21:27 EDT 02/22/2020 21:30 EDT Parag Eid MD CHEMISTRY & BLOOD GAS ORDERAB LES Final Result [facility] [address] [place] [address] * CT HEAD WO CONTRAST (02/22/2020 21:02 EDT) Anatomical Region Laterality Modality Head Computed Tomogra phy 02/23/2020 8:38 EDT Impressions 02/23/2020 8:38 EDT 1. Postsurgical findings status post decompressive left hemicord craniectomy with increased soft tissue swelling and fluid in the overlying scalp and slightly increased size of extra-axial hemorrhage at the craniectomy site. 2. Evolving parenchymal hemorrhage with associated benitez and white matter edema and local mass effect, predominantly in the left temporal lobe. 3. Persistent high density thrombus at the junction of the left transverse and sigmoid sinuses. Narrative 02/23/2020 8:[address] HEAD WO CONTRAST 02/22/2020 5:40 PM Signs and Symptoms: Cerebral hemorrhage suspected; f/u head Ct on ICH/venous thrombosis. Comparison: CTA head February 16, [address] venogram February 17, 2020. Technique: Axial noncontrast CT images of the head were obtained with coronal and sagittal reformations. Findings: There has been previous decompressive left hemicraniectomy. Soft tissue swelling, small amount of fluid and small amount of gas is noted in the overlying soft tissues. Soft tissue swelling and fluid of increased compared with the previous head CT. Skin ghassan are present within the scalp. There is an extra-axial collection containing high density hemorrhage at the craniectomy site. This is slightly increased in size compared to the prior head CT. It measures approximately 5 mm in maximal thickness. Evolving parenchymal hemorrhage with surrounding low density benitez and white matter edema and local sulcal effacement is present, predominantly in the left temporal lobe. Mass effect on the lateral and 3rd ventricles appears minimally decreased. The right lateral ventricle and 4th ventricle are similar in size compared to the prior study. Mild midline shift from left to right is again demonstrated. No uncal, transtentorial or cerebellar tonsillar herniation is identified. There is a small amount of high density noted at the junction of the left transverse and sigmoid sinus compatible with thrombus. Additional areas of sinus and vein thrombus are not as well-demonstrated on this noncontrast examination. No orbital abnormality is demonstrated. There are no paranasal sinus air-fluid levels identified. The mastoid air cells are predominantly clear. Fixation screws are noted in the mandible bilaterally. 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 Procedure Note Eneida Brar MD - 02/23/2020 CT HEAD WO CONTRAST 02/22/2020 5:40 PM Signs and Symptoms: Cerebral hemorrhage suspected; f/u head Ct on ICH/venous thrombosis. Comparison: CTA head February 16, [address] venogram February 17, 2020. Technique: Axial noncontrast CT images of the head were obtained with coronal andsagittal reformations. Findings: There has been previous decompressive left hemicraniectomy. Soft tissueswelling, small amount of fluid and small amount of gas is noted in theoverlying soft tissues. Soft tissue swelling and fluid of increasedcompared with the previous head CT. Skin ghassan are present within thescalp. There is an extra-axial collection containing high densityhemorrhage at the craniectomy site. This is slightly increased in sizecompared to the prior head CT. It measures approximately 5 mm in maximalthickness. Evolving parenchymal hemorrhage with surrounding low densitygray and white matter edema and local sulcal effacement is present,predominantly in the left temporal lobe. Mass effect on the lateral and3rd ventricles appears minimally decreased. The right lateral ventricleand 4th ventricle are similar in size compared to the prior study. Mildmidline shift from left to right is again demonstrated. No uncal,transtentorial or cerebellar tonsillar herniation is identified. There tanya small amount of high density noted at the junction of the left transverse andsigmoid sinus compatible with thrombus. Additional areas of sinus and veinthrombus are not as well-demonstrated on this noncontrast examination. Noorbital abnormality is demonstrated. There are no paranasal sinusair-fluid levels identified. The mastoid air cells are predominantlyclear. 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 IMPRESSION 1. Postsurgical findings status post decompressive left hemicordcraniectomy with increased soft tissue swelling and fluid in the overlyingscalp and slightly increased size of extra-axial hemorrhage at thecraniectomy site. 2. Evolving parenchymal hemorrhage with associated benitez and white matteredema and local mass effect, predominantly in the left temporal lobe. 3. Persistent high density thrombus at the junction of the left transverseand sigmoid sinuses. Ashleigh Patel MD IMG CT ORDERABLES Final Re sult * POCT GLUCOSE, INTERFACED (02/22/2020 20:33 EDT) Glucose, POC 91 70 - 100 mg/dL 02/22/2020 20:[address] [facility] corporate staff accountant ID [id number] 02/22/2020 20:[address] [facility] HN LAB POC COMMENT (GLUCOSE) Test Performed by Nursing Services 02/22/2020 20:[address] [facility] Blood CAPILLARY BLOOD / Unknown 02/22/2020 20:33 EDT 02/22/2020 20:34 EDT Kevin Rinaldi MD POINT OF CARE TEST ORDERABLES F inal Result Performing Organization Address [facility]/ZIP Co de Phone Number [facility] [address] [place] [address] * (ABNORMAL) POCT GLUCOSE, INTERFACED (02/22/2020 17:54 EDT) Glucose, POC 105(H) 70 - 100 mg/dL 02/22/2020 17:[address] [facility] corporate staff accountant ID [id number] 02/22/2020 17:[address] [facility] HN LAB POC COMMENT (GLUCOSE) Test Performed by Nursing Services 02/22/2020 17:[address] [facility] Blood CAPILLARY BLOOD / Unknown 02/22/2020 17:54 EDT 02/22/2020 17:55 EDT Kevin Rinaldi MD POINT OF CARE TEST ORDERABLES F inal Result Performing Organization Address City/[facility]/ZIP Co de Phone Number [facility] [address] [place] [address] * (ABNORMAL) ELECTROLYTES (02/22/2020 15:00 EDT) Sodium 137 136 - 145 mEq/L 02/22/2020 15:[address] [facility] Potassium 3.7 3.5 - 5.0 mEq/L 02/22/2020 15:[address] [facility] Chloride 112(H) 96 - 110 mEq/L 02/22/2020 15:[address] [facility] CO2 Total 20(L) 22 - 32 mEq/L 02/22/2020 15:[address] [facility] Blood VENOUS BLOOD / Unknown Venipuncture / Unknown 02/22/2020 15:00 EDT 02/22/2020 15:03 EDT us Parag Eid MD CHEMISTRY & BLOOD GAS ORDERAB LES Final Result Performing Organization Address [facility] Co de Phone Number [facility] [address] [place] [address] * POCT GLUCOSE, INTERFACED (02/22/2020 12:19 EDT) Glucose, POC 99 70 - 100 mg/dL 02/22/2020 12:[address] [facility] corporate staff accountant ID [id number] 02/22/2020 12:[address] [facility] HN LAB POC COMMENT (GLUCOSE) Test Performed by Nursing Services 02/22/2020 12:[address] [facility] Blood CAPILLARY BLOOD / Unknown 02/22/2020 12:19 EDT 02/22/2020 12:20 EDT us Claus Piña MD POINT OF CARE TEST ORDERABLES Fi nal Result [facility] [address] [place] [address] * (ABNORMAL) POCT GLUCOSE, INTERFACED (02/22/2020 8:50 EDT) Glucose, POC 112(H) 70 - 100 mg/dL 02/22/2020 8:[address] [facility] corporate staff accountant ID [id number] 02/22/2020 8:[address] [facility] HN LAB POC COMMENT (GLUCOSE) Test Performed by Nursing Services 02/22/2020 8:[address] [facility] Blood CAPILLARY BLOOD / Unknown 02/22/2020 8:50 EDT 02/22/2020 8:54 EDT us Claus Piña MD POINT OF CARE TEST ORDERABLES Fi nal Result Performing Organization Address City/[facility]/ZIP Co de Phone Number [facility] [address] [place] [address] * POCT GLUCOSE, INTERFACED (02/22/2020 5:23 EDT) Glucose, POC 94 70 - 100 mg/dL 02/22/2020 5:[address] [facility] corporate staff accountant ID [id number] 02/22/2020 5:[address] [facility] HN LAB POC COMMENT (GLUCOSE) Test Performed by Nursing Services 02/22/2020 5:[address] [facility] Blood CAPILLARY BLOOD / Unknown 02/22/2020 5:23 EDT 02/22/2020 5:27 EDT us Joyce Lee MD POINT OF CARE TEST ORDERABLES Fi nal Result Performing Organization Address City/[facility] Co de Phone Number [facility] [address] [place] [address] * (ABNORMAL) ELECTROLYTES (02/22/2020 2:29 EDT) Sodium 137 136 - 145 mEq/L 02/22/2020 3:[address] [facility] Potassium 3.9 3.5 - 5.0 mEq/L 02/22/2020 3:[address] [facility] Chloride 111(H) 96 - 110 mEq/L 02/22/2020 3:[address] [facility] CO2 Total 19(L) 22 - 32 mEq/L 02/22/2020 3:[address] [facility] Blood VENOUS BLOOD / Unknown Venipuncture / Unknown 02/22/2020 2:29 EDT 02/22/2020 2:40 EDT us Parag Eid MD CHEMISTRY & BLOOD GAS ORDERAB LES Final Result [facility] [address] [place] [address] * PHOSPHORUS (02/22/2020 2:29 EDT) Phosphorus 4.1 2.5 - 4.5 mg/dL 02/22/2020 3:[address] [facility] Blood VENOUS BLOOD / Unknown Venipuncture / Unknown 02/22/2020 2:29 EDT 02/22/2020 2:40 EDT Parag Eid MD CHEMISTRY & BLOOD GAS ORDERAB LES Final Result Performing Organization Address City/[facility]/ZIP Co de Phone Number [facility] [address] [place] [address] * MAGNESIUM (02/22/2020 2:29 EDT) Magnesium 2.2 1.7 - 2.8 mg/dL 02/22/2020 3:[address] [facility] Blood VENOUS BLOOD / Unknown Venipuncture / Unknown 02/22/2020 2:29 EDT 02/22/2020 2:40 EDT Parag Eid MD CHEMISTRY & BLOOD GAS ORDERAB LES Final Result Performing Organization Address City/[facility]/ZIP Co de Phone Number [facility] [address] [place] [address] * (ABNORMAL) PROTIME (02/22/2020 2:29 EDT) I.N.R. 1.2(H) 0.9 - 1.1 Ratio 02/22/2020 3:[address] [facility] Pro Time 14.3(H) 10.3 - 13.4 secs 02/22/2020 3:[address] [facility] Blood VENOUS BLOOD / Unknown Venipuncture / Unknown 02/22/2020 2:29 EDT 02/22/2020 2:[address] [facility] - 02/22/2020 3:12 EDT Moderate Intensity Coumadin INR = 2.0-3.0 Adjustments in anticoagulant therapy dose should be based on the INR and NOT on the Protime. us Parag Eid MD HEMATOLOGY & PF4 ORDERABLES F inal Result Performing Organization Address [facility] Co de Phone Number [facility] [address] [place] [address] * PTT (02/22/2020 2:29 EDT) PTT 37 26 - 37 secs 02/22/2020 3:[address] [facility] Blood VENOUS BLOOD / Unknown Venipuncture / Unknown 02/22/2020 2:29 EDT 02/22/2020 2:40 EDT us Parag Eid MD HEMATOLOGY & PF4 ORDERABLES F inal Result Performing Organization Address [facility] Co de Phone Number [facility] [address] [place] [address] * BUN (02/22/2020 2:29 EDT) BUN 21 10 - 26 mg/dL 02/22/2020 3:[address] [facility] Blood VENOUS BLOOD / Unknown Venipuncture / Unknown 02/22/2020 2:29 EDT 02/22/2020 2:40 EDT us Parag Eid MD CHEMISTRY & BLOOD GAS ORDERAB LES Final Result Performing Organization Address [facility] Co de Phone Number [facility] [address] [place] [address] * (ABNORMAL) CREATININE (02/22/2020 2:29 EDT) Creatinine 0.49(L) 0.52 - 1.04 mg/dL 02/22/2020 3:[address] [facility] eGFR 112 >60 mL/min/1.7 3m2 02/22/2020 3:06 [facility] Comment:eGFR calculated mickey redd CKD-EPI equation for non- Americans. Multiply eGFR by 1.16 for patients. Blood VENOUS BLOOD / Unknown Venipuncture / Unknown 02/22/2020 2:29 EDT 02/22/2020 2:40 EDT us Joyce Lee MD CHEMISTRY & BLOOD GAS ORDERABLES Final Result [facility] [address] [place] [address] * (ABNORMAL) COMPLETE BLOOD COUNT (02/22/2020 2:29 EDT) WBC 9.61 4.00 - 12.40 K/cmm 02/22/2020 2:49 [facility] RBC 3.28(L) 3.86 - 5.04 M/cmm 02/22/2020 2:49 [facility] Hemoglobin 10.7(L) 11.6 - 15.2 gm/dL 02/22/2020 2:49 [facility] HCT 32.3(L) 34.9 - 44.4 % 02/22/2020 2:49 [facility] MCV 99(H) 81 - 98 fl 02/22/2020 2:49 [facility] MCH 32.6 26.7 - 33.3 pg 02/22/2020 2:49 [facility] MCHC 33.1 32.1 - 35.9 gm/dL 02/22/2020 2:49 [facility] RDW-CV 14.0 <14.7 % 02/22/2020 2:49 [facility] RDW-SD 50.3 <50.4 fl 02/22/2020 2:49 [facility] PLT 256 141 - 377 K/cmm 02/22/2020 2:49 [facility] MPV 10.3 9.5 - 12.7 fl 02/22/2020 2:49 [facility] Blood VENOUS BLOOD / Unknown Venipuncture / Unknown 02/22/2020 2:29 EDT 02/22/2020 2:40 EDT Joyce Lee MD HEMATOLOGY & PF4 ORDERABLES Shannon l Result Performing Organization Address [facility]/ZIP Co de Phone Number [facility] [address] [place] [address] * POCT GLUCOSE, INTERFACED (02/22/2020 0:26 EDT) Glucose, POC 94 70 - 100 mg/dL 02/22/2020 0:[address] [facility] corporate staff accountant ID [id number] 02/22/2020 0:[address] [facility] HN LAB POC COMMENT (GLUCOSE) Test Performed by Nursing Services 02/22/2020 0:[address] [facility] Blood CAPILLARY BLOOD / Unknown 02/22/2020 0:26 EDT 02/22/2020 0:30 EDT Joyce Lee MD POINT OF CARE TEST ORDERABLES Fi nal Result Performing Organization Address [facility] Co de Phone Number [facility] [address] [place] [address] * (ABNORMAL) ELECTROLYTES (02/21/2020 21:51 EDT) Sodium 146(H) 136 - 145 mEq/L 02/22/2020 9:[address] [facility] Potassium 3.3(L) 3.5 - 5.0 mEq/L 02/22/2020 9:[address] [facility] Chloride 120(H) 96 - 110 mEq/L 02/22/2020 9:[address] [facility] CO2 Total 20(L) 22 - 32 mEq/L 02/22/2020 9:[address] [facility] Blood VENOUS BLOOD / Unknown Venipuncture / Unknown 02/21/2020 21:51 EDT 02/21/2020 21:59 EDT us Parag Eid MD CHEMISTRY & BLOOD GAS ORDERAB LES Edited Result - Final [facility] [address] [place] [address] * (ABNORMAL) POCT GLUCOSE, INTERFACED (02/21/2020 19:24 EDT) [facility] Glucose, POC 107(H) 70 - 100 mg/dL 02/21/2020 19:[address] [facility] corporate staff accountant ID [id number] 02/21/2020 19:[address] [facility] HN LAB POC COMMENT (GLUCOSE) Test Performed by Nursing Services 02/21/2020 19:[address] [facility] Blood CAPILLARY BLOOD / Unknown 02/21/2020 19:24 EDT 02/21/2020 19:28 EDT us Joyce Lee MD POINT OF CARE TEST ORDERABLES Fi nal Result Performing Organization Address City/[facility]/ZIP Co de Phone Number [facility] [address] [place] [address] * (ABNORMAL) ELECTROLYTES (02/21/2020 12:52 EDT) [facility] Sodium 137 136 - 145 mEq/L 02/21/2020 13:[address] [facility] Potassium 4.0 3.5 - 5.0 mEq/L 02/21/2020 13:[address] [facility] Chloride 109 96 - 110 mEq/L 02/21/2020 13:[address] [facility] CO2 Total 20(L) 22 - 32 mEq/L 02/21/2020 13:[address] [facility] Blood VENOUS BLOOD / Unknown Venipuncture / Unknown 02/21/2020 12:52 EDT 02/21/2020 13:01 EDT us Parag Eid MD CHEMISTRY & BLOOD GAS ORDERAB LES Final Result [facility] [address] [place] [address] * POCT GLUCOSE, INTERFACED (02/21/2020 12:24 EDT) Glucose, POC 100 70 - 100 mg/dL 02/21/2020 12:[address] [facility] corporate staff accountant ID [id number] 02/21/2020 12:[address] [facility] HN LAB POC COMMENT (GLUCOSE) Test Performed by Nursing Services 02/21/2020 12:[address] [facility] Blood CAPILLARY BLOOD / Unknown 02/21/2020 12:24 EDT 02/21/2020 12:25 EDT Joyce Lee MD POINT OF CARE TEST ORDERABLES Fi nal Result [facility] [address] [place] [address] * POCT GLUCOSE, INTERFACED (02/21/2020 6:17 EDT) Glucose, POC 99 70 - 100 mg/dL 02/21/2020 6:[address] [facility] corporate staff accountant ID [id number] 02/21/2020 6:[address] [facility] HN LAB POC COMMENT (GLUCOSE) Test Performed by Nursing Services 02/21/2020 6:[address] [facility] Blood CAPILLARY BLOOD / Unknown 02/21/2020 6:17 EDT 02/21/2020 6:22 EDT Joyce Lee MD POINT OF CARE TEST ORDERABLES Fi nal Result Performing Organization Address City/[facility]/ZIP Co de Phone Number [facility] [address] [place] [address] * ELECTROLYTES (02/21/2020 2:32 EDT) Sodium 138 136 - 145 mEq/L 02/21/2020 3:[address] [facility] Potassium 3.9 3.5 - 5.0 mEq/L 02/21/2020 3:[address] [facility] Chloride 109 96 - 110 mEq/L 02/21/2020 3:[address] [facility] CO2 Total 22 22 - 32 mEq/L 02/21/2020 3:[address] [facility] Blood VENOUS BLOOD / Unknown Venipuncture / Unknown 02/21/2020 2:32 EDT 02/21/2020 2:56 EDT Parag Eid MD CHEMISTRY & BLOOD GAS ORDERAB LES Final Result Performing Organization Address City/[facility]/ZIP Co de Phone Number [facility] [address] [place] [address] * PHOSPHORUS (02/21/2020 2:32 EDT) Phosphorus 4.4 2.5 - 4.5 mg/dL 02/21/2020 3:[address] [facility] Blood VENOUS BLOOD / Unknown Venipuncture / Unknown 02/21/2020 2:32 EDT 02/21/2020 2:56 EDT Parag Eid MD CHEMISTRY & BLOOD GAS ORDERAB LES Final Result Performing Organization Address City/[facility]/ZIP Co de Phone Number [facility] [address] [place] [address] * MAGNESIUM (02/21/2020 2:32 EDT) Magnesium 2.2 1.7 - 2.8 mg/dL 02/21/2020 3:[address] [facility] Blood VENOUS BLOOD / Unknown Venipuncture / Unknown 02/21/2020 2:32 EDT 02/21/2020 2:56 EDT Parag Eid MD CHEMISTRY & BLOOD GAS ORDERAB LES Final Result Performing Organization Address City/[facility]/ZIP Co de Phone Number [facility] [address] [place] [address] * PROTIME (02/21/2020 2:32 EDT) I.N.R. 1.1 0.9 - 1.1 Ratio 02/21/2020 3:[address] [facility] Pro Time 12.7 10.3 - 13.4 secs 02/21/2020 3:[address] [facility] Blood VENOUS BLOOD / Unknown Venipuncture / Unknown 02/21/2020 2:32 EDT 02/21/2020 2:[address] [facility] - 02/21/2020 3:22 EDT Moderate Intensity Coumadin INR = 2.0-3.0 Adjustments in anticoagulant therapy dose should be based on the INR and NOT on the Protime. Parag Eid MD HEMATOLOGY & PF4 ORDERABLES F inal Result Performing Organization Address City/[facility]/ZIP Co de Phone Number [facility] [address] [place] [address] * PTT (02/21/2020 2:32 EDT) PTT 32 26 - 37 secs 02/21/2020 3:[address] [facility] Blood VENOUS BLOOD / Unknown Venipuncture / Unknown 02/21/2020 2:32 EDT 02/21/2020 2:54 EDT Parag Eid MD HEMATOLOGY & PF4 ORDERABLES F inal Result Performing Organization Address [facility] Co de Phone Number [facility] [address] [place] [address] * BUN (02/21/2020 2:32 EDT) BUN 23 10 - 26 mg/dL 02/21/2020 3:[address] [facility] Blood VENOUS BLOOD / Unknown Venipuncture / Unknown 02/21/2020 2:32 EDT 02/21/2020 2:56 EDT us Parag Eid MD CHEMISTRY & BLOOD GAS ORDERAB LES Final Result Performing Organization Address [facility] Co de Phone Number [facility] [address] [place] [address] * (ABNORMAL) CREATININE (02/21/2020 2:32 EDT) Creatinine 0.45(L) 0.52 - 1.04 mg/dL 02/21/2020 3:20 [facility] eGFR 116 >60 mL/min/1.7 3m2 02/21/2020 3:20 [facility] Comment:eGFR calculated mickey redd CKD-EPI equation for non- Americans. Multiply eGFR by 1.16 for patients. Blood VENOUS BLOOD / Unknown Venipuncture / Unknown 02/21/2020 2:32 EDT 02/21/2020 2:56 EDT us Joyce Lee MD CHEMISTRY & BLOOD GAS ORDERABLES Final Result [facility] [address] [place] [address] * (ABNORMAL) COMPLETE BLOOD COUNT (02/21/2020 2:32 EDT) WBC 9.46 4.00 - 12.40 K/cmm 02/21/2020 3:03 [facility] RBC 3.28(L) 3.86 - 5.04 M/cmm 02/21/2020 3:03 [facility] Hemoglobin 10.9(L) 11.6 - 15.2 gm/dL 02/21/2020 3:03 [facility] HCT 33.2(L) 34.9 - 44.4 % 02/21/2020 3:03 [facility] MCV 101(H) 81 - 98 fl 02/21/2020 3:03 [facility] MCH 33.2 26.7 - 33.3 pg 02/21/2020 3:03 [facility] MCHC 32.8 32.1 - 35.9 gm/dL 02/21/2020 3:03 [facility] RDW-CV 14.3 <14.7 % 02/21/2020 3:03 [facility] RDW-SD 53.7(H) <50.4 fl 02/21/2020 3:03 [facility] PLT 235 141 - 377 K/cmm 02/21/2020 3:03 [facility] MPV 11.0 9.5 - 12.7 fl 02/21/2020 3:[address] [facility] Blood VENOUS BLOOD / Unknown Venipuncture / Unknown 02/21/2020 2:32 EDT 02/21/2020 2:54 EDT Joyce Lee MD HEMATOLOGY & PF4 ORDERABLES Shannon l Result Performing Organization Address City/[facility]/ZIP Co de Phone Number [facility] [address] [place] [address] * (ABNORMAL) POCT GLUCOSE, INTERFACED (02/21/2020 0:32 EDT) Glucose, POC 103(H) 70 - 100 mg/dL 02/21/2020 6:[address] [facility] corporate staff accountant ID [id number] 02/21/2020 6:[address] [facility] HN LAB POC COMMENT (GLUCOSE) Test Performed by Nursing Services 02/21/2020 6:[address] [facility] Blood CAPILLARY BLOOD / Unknown 02/21/2020 0:32 EDT 02/21/2020 6:12 EDT Joyce Lee MD POINT OF CARE TEST ORDERABLES Fi nal Result Performing Organization Address [facility] Co de Phone Number [facility] [address] [place] [address] * ELECTROLYTES (02/20/2020 21:18 EDT) Sodium 138 136 - 145 mEq/L 02/20/2020 23:[address] [facility] Potassium 3.7 3.5 - 5.0 mEq/L 02/20/2020 23:[address] [facility] Chloride 109 96 - 110 mEq/L 02/20/2020 23:[address] [facility] CO2 Total 23 22 - 32 mEq/L 02/20/2020 23:[address] [facility] Blood VENOUS BLOOD / Unknown Venipuncture / Unknown 02/20/2020 21:18 EDT 02/20/2020 21:38 EDT us Parag Eid MD CHEMISTRY & BLOOD GAS ORDERAB LES Final Result [facility] [address] [place] [address] * (ABNORMAL) POCT GLUCOSE, INTERFACED (02/20/2020 19:32 EDT) Glucose, POC 109(H) 70 - 100 mg/dL 02/20/2020 23:[address] [facility] corporate staff accountant ID [id number] 02/20/2020 23:[address] [facility] HN LAB POC COMMENT (GLUCOSE) Test Performed by Nursing Services 02/20/2020 23:[address] [facility] Blood CAPILLARY BLOOD / Unknown 02/20/2020 19:32 EDT 02/20/2020 23:01 EDT us Joyce Lee MD POINT OF CARE TEST ORDERABLES Fi nal Result Performing Organization Address [facility]/ZIP Co de Phone Number [facility] [address] [place] [address] * ELECTROLYTES (02/20/2020 14:26 EDT) Sodium 140 136 - 145 mEq/L 02/20/2020 14:[address] [facility] Potassium 3.7 3.5 - 5.0 mEq/L 02/20/2020 14:[address] [facility] Chloride 110 96 - 110 mEq/L 02/20/2020 14:[address] [facility] CO2 Total 24 22 - 32 mEq/L 02/20/2020 14:[address] [facility] Blood VENOUS BLOOD / Unknown Venipuncture / Unknown 02/20/2020 14:26 EDT 02/20/2020 14:34 EDT us Parag Eid MD CHEMISTRY & BLOOD GAS ORDERAB LES Final Result [facility] [address] [place] [address] * (ABNORMAL) POCT GLUCOSE, INTERFACED (02/20/2020 11:28 EDT) Glucose, POC 124(H) 70 - 100 mg/dL 02/20/2020 11:[address] [facility] corporate staff accountant ID [id number] 02/20/2020 11:[address] [facility] HN LAB POC COMMENT (GLUCOSE) Test Performed by Nursing Services 02/20/2020 11:[address] [facility] Blood CAPILLARY BLOOD / Unknown 02/20/2020 11:28 EDT 02/20/2020 11:28 EDT us Joyce Lee MD POINT OF CARE TEST ORDERABLES Fi nal Result Performing Organization Address City/[facility]/ZIP Co de Phone Number [facility] [address] [place] [address] * (ABNORMAL) ELECTROLYTES (02/20/2020 6:48 EDT) Sodium 142 136 - 145 mEq/L 02/20/2020 8:[address] [facility] Potassium 3.5 3.5 - 5.0 mEq/L 02/20/2020 8:[address] [facility] Chloride 112(H) 96 - 110 mEq/L 02/20/2020 8:[address] [facility] CO2 Total 26 22 - 32 mEq/L 02/20/2020 8:[address] [facility] Blood VENOUS BLOOD / Unknown Venipuncture / Unknown 02/20/2020 6:48 EDT 02/20/2020 8:08 EDT us Parag Eid MD CHEMISTRY & BLOOD GAS ORDERAB LES Final Result [facility] [address] [place] [address] * PHOSPHORUS (02/20/2020 6:48 EDT) Phosphorus 4.1 2.5 - 4.5 mg/dL 02/20/2020 8:[address] [facility] Blood VENOUS BLOOD / Unknown Venipuncture / Unknown 02/20/2020 6:48 EDT 02/20/2020 8:08 EDT us Parag Eid MD CHEMISTRY & BLOOD GAS ORDERAB LES Final Result Performing Organization Address City/[facility]/ZIP Co de Phone Number [facility] [address] [place] [address] * MAGNESIUM (02/20/2020 6:48 EDT) Magnesium 2.2 1.7 - 2.8 mg/dL 02/20/2020 8:[address] [facility] Blood VENOUS BLOOD / Unknown Venipuncture / Unknown 02/20/2020 6:48 EDT 02/20/2020 8:08 EDT us Parag Eid MD CHEMISTRY & BLOOD GAS ORDERAB LES Final Result Performing Organization Address [facility] de Phone Number [facility] [address] [place] [address] * PROTIME (02/20/2020 6:48 EDT) I.N.R. 1.1 0.9 - 1.1 Ratio 02/20/2020 7:[address] [facility] Pro Time 13.1 10.3 - 13.4 secs 02/20/2020 7:[address] [facility] Blood VENOUS BLOOD / Unknown Venipuncture / Unknown 02/20/2020 6:48 EDT 02/20/2020 7:[address] [facility] - 02/20/2020 7:52 EDT Moderate Intensity Coumadin INR = 2.0-3.0 Adjustments in anticoagulant therapy dose should be based on the INR and NOT on the Protime. us Parag Eid MD HEMATOLOGY & PF4 ORDERABLES F inal Result Performing Organization Address City/[facility]/ZIP Co de Phone Number [facility] [address] [place] [address] * PTT (02/20/2020 6:48 EDT) PTT 31 26 - 37 secs 02/20/2020 7:[address] [facility] Blood VENOUS BLOOD / Unknown Venipuncture / Unknown 02/20/2020 6:48 EDT 02/20/2020 7:20 EDT Parag Eid MD HEMATOLOGY & PF4 ORDERABLES F inal Result [facility] [address] [place] [address] * BUN (02/20/2020 6:48 EDT) Pathologist [facility] BUN 23 10 - 26 mg/dL 02/20/2020 8:[address] [facility] Blood VENOUS BLOOD / Unknown Venipuncture / Unknown 02/20/2020 6:48 EDT 02/20/2020 8:08 EDT us Parag Eid MD CHEMISTRY & BLOOD GAS ORDERAB LES Final Result Performing Organization Address City/[facility] Co de Phone Number [facility] [address] [place] [address] * (ABNORMAL) CREATININE (02/20/2020 6:48 EDT) Pathologist [facility] Creatinine 0.50(L) 0.52 - 1.04 mg/dL 02/20/2020 8:[address] [facility] eGFR 112 >60 mL/min/1.7 3m2 02/20/2020 8:[address] [facility] Comment:eGFR calculated mickey redd CKD-EPI equation for non- Americans. Multiply eGFR by 1.16 for patients. Blood VENOUS BLOOD / Unknown Venipuncture / Unknown 02/20/2020 6:48 EDT 02/20/2020 8:08 EDT us Joyce Lee MD CHEMISTRY & BLOOD GAS ORDERABLES Final Result [facility] [address] [place] [address] * (ABNORMAL) COMPLETE BLOOD COUNT (02/20/2020 6:48 EDT) WBC 9.74 4.00 - 12.40 K/cmm 02/20/2020 7:[address] [facility] RBC 3.22(L) 3.86 - 5.04 M/cmm 02/20/2020 7:[address] [facility] Hemoglobin 10.8(L) 11.6 - 15.2 gm/dL 02/20/2020 7:[address] [facility] HCT 33.0(L) 34.9 - 44.4 % 02/20/2020 7:[address] [facility] MCV 103(H) 81 - 98 fl 02/20/2020 7:[address] [facility] MCH 33.5(H) 26.7 - 33.3 pg 02/20/2020 7:[address] [facility] MCHC 32.7 32.1 - 35.9 gm/dL 02/20/2020 7:[address] [facility] RDW-CV 14.5 <14.7 % 02/20/2020 7:[address] [facility] RDW-SD 54.1(H) <50.4 fl 02/20/2020 7:[address] [facility] PLT 229 141 - 377 K/cmm 02/20/2020 7:[address] [facility] MPV 10.9 9.5 - 12.7 fl 02/20/2020 7:[address] [facility] Blood VENOUS BLOOD / Unknown Venipuncture / Unknown 02/20/2020 6:48 EDT 02/20/2020 7:20 EDT us Joyce Lee MD HEMATOLOGY & PF4 ORDERABLES Shannon l Result [facility] [address] [place] [address] * (ABNORMAL) POCT GLUCOSE, INTERFACED (02/20/2020 6:19 EDT) Glucose, POC 106(H) 70 - 100 mg/dL 02/20/2020 6:[address] [facility] corporate staff accountant ID [id number] 02/20/2020 6:[address] [facility] HN LAB POC COMMENT (GLUCOSE) Test Performed by Nursing Services 02/20/2020 6:[address] [facility] Blood CAPILLARY BLOOD / Unknown 02/20/2020 6:19 EDT 02/20/2020 6:23 EDT us Joyce Lee MD POINT OF CARE TEST ORDERABLES Fi nal Result Performing Organization Address City/[facility]/ZIP Co de Phone Number [facility] [address] [place] [address] * (ABNORMAL) POCT GLUCOSE, INTERFACED (02/20/2020 0:01 EDT) Glucose, POC 118(H) 70 - 100 mg/dL 02/20/2020 0:[address] [facility] corporate staff accountant ID [id number] 02/20/2020 0:[address] [facility] HN LAB POC COMMENT (GLUCOSE) Test Performed by Nursing Services 02/20/2020 0:[address] [facility] Blood CAPILLARY BLOOD / Unknown 02/20/2020 0:01 EDT 02/20/2020 0:05 EDT us Joyce Lee MD POINT OF CARE TEST ORDERABLES Fi nal Result Performing Organization Address City/[facility]/ZIP Co de Phone Number [facility] [address] [place] [address] * (ABNORMAL) ELECTROLYTES (02/19/2020 21:25 EDT) Sodium 143 136 - 145 mEq/L 02/19/2020 21:[address] [facility] Potassium 3.8 3.5 - 5.0 mEq/L 02/19/2020 21:[address] [facility] Comment:Slight hemolysis rodrigo ntified, interpret with caution as hemolysis will elevate potassium result. Chloride 112(H) 96 - 110 mEq/L 02/19/2020 21:[address] [facility] CO2 Total 26 22 - 32 mEq/L 02/19/2020 21:[address] [facility] Blood VENOUS BLOOD / Unknown Venipuncture / Unknown 02/19/2020 21:25 EDT 02/19/2020 21:32 EDT us Parag Eid MD CHEMISTRY & BLOOD GAS ORDERAB LES Final Result Performing Organization Address City/[facility]/ZIP Co de Phone Number [facility] [address] [place] [address] * (ABNORMAL) POCT GLUCOSE, INTERFACED (02/19/2020 17:26 EDT) Glucose, POC 169(H) 70 - 100 mg/dL 02/19/2020 17:[address] [facility] corporate staff accountant ID [id number] 02/19/2020 17:[address] [facility] HN LAB POC COMMENT (GLUCOSE) Test Performed by Nursing Services 02/19/2020 17:[address] [facility] Blood CAPILLARY BLOOD / Unknown 02/19/2020 17:26 EDT 02/19/2020 17:30 EDT us Joyce Lee MD POINT OF CARE TEST ORDERABLES Fi nal Result Performing Organization Address [facility] Co de Phone Number [facility] [address] [place] [address] * (ABNORMAL) ELECTROLYTES (02/19/2020 14:12 EDT) Sodium 147(H) 136 - 145 mEq/L 02/19/2020 15:[address] [facility] Potassium 3.7 3.5 - 5.0 mEq/L 02/19/2020 15:[address] [facility] Chloride 112(H) 96 - 110 mEq/L 02/19/2020 15:[address] [facility] CO2 Total 28 22 - 32 mEq/L 02/19/2020 15:[address] [facility] Blood VENOUS BLOOD / Unknown Venipuncture / Unknown 02/19/2020 14:12 EDT 02/19/2020 14:18 EDT us Parag Eid MD CHEMISTRY & BLOOD GAS ORDERAB LES Final Result [facility] [address] [place] [address] * (ABNORMAL) POCT GLUCOSE, INTERFACED (02/19/2020 11:13 EDT) Glucose, POC 127(H) 70 - 100 mg/dL 02/19/2020 11:[address] [facility] corporate staff accountant ID [id number] 02/19/2020 11:[address] [facility] HN LAB POC COMMENT (GLUCOSE) Test Performed by Nursing Services 02/19/2020 11:[address] [facility] Blood CAPILLARY BLOOD / Unknown 02/19/2020 11:13 EDT 02/19/2020 11:13 EDT us Joyce Lee MD POINT OF CARE TEST ORDERABLES Fi nal Result [facility] [address] [place] [address] * (ABNORMAL) POCT GLUCOSE, INTERFACED (02/19/2020 6:01 EDT) Glucose, POC 110(H) 70 - 100 mg/dL 02/19/2020 6:[address] [facility] corporate staff accountant ID [id number] 02/19/2020 6:[address] [facility] HN LAB POC COMMENT (GLUCOSE) Test Performed by Nursing Services 02/19/2020 6:[address] [facility] Blood CAPILLARY BLOOD / Unknown 02/19/2020 6:01 EDT 02/19/2020 6:06 EDT us Joyce Lee MD POINT OF CARE TEST ORDERABLES Fi nal Result [facility] [address] [place] [address] * (ABNORMAL) ELECTROLYTES (02/19/2020 4:18 EDT) Sodium 144 136 - 145 mEq/L 02/19/2020 5:[address] [facility] Potassium 3.0(L) 3.5 - 5.0 mEq/L 02/19/2020 5:[address] [facility] Chloride 109 96 - 110 mEq/L 02/19/2020 5:[address] [facility] CO2 Total 29 22 - 32 mEq/L 02/19/2020 5:[address] [facility] Blood VENOUS BLOOD / Unknown Venipuncture / Unknown 02/19/2020 4:18 EDT 02/19/2020 4:37 EDT us Parag Eid MD CHEMISTRY & BLOOD GAS ORDERAB LES Final Result Performing Organization Address City/[facility]/ZIP Co de Phone Number [facility] [address] [place] [address] * PHOSPHORUS (02/19/2020 4:18 EDT) Phosphorus 3.7 2.5 - 4.5 mg/dL 02/19/2020 5:[address] [facility] Blood VENOUS BLOOD / Unknown Venipuncture / Unknown 02/19/2020 4:18 EDT 02/19/2020 4:37 EDT us Parag Eid MD CHEMISTRY & BLOOD GAS ORDERAB LES Final Result [facility] [address] [place] [address] * MAGNESIUM (02/19/2020 4:18 EDT) Magnesium 2.1 1.7 - 2.8 mg/dL 02/19/2020 5:[address] [facility] Blood VENOUS BLOOD / Unknown Venipuncture / Unknown 02/19/2020 4:18 EDT 02/19/2020 4:37 EDT us Parag Eid MD CHEMISTRY & BLOOD GAS ORDERAB LES Final Result [facility] [address] [place] [address] * (ABNORMAL) PROTIME (02/19/2020 4:18 EDT) I.N.R. 1.3(H) 0.9 - 1.1 Ratio 02/19/2020 4:[address] [facility] Pro Time 15.0(H) 10.3 - 13.4 secs 02/19/2020 4:[address] [facility] Blood VENOUS BLOOD / Unknown Venipuncture / Unknown 02/19/2020 4:18 EDT 02/19/2020 4:[address] [facility] - 02/19/2020 4:44 EDT Moderate Intensity Coumadin INR = 2.0-3.0 Adjustments in anticoagulant therapy dose should be based on the INR and NOT on the Protime. Parag Eid MD HEMATOLOGY & PF4 ORDERABLES F inal Result [facility] [address] [place] [address] * PTT (02/19/2020 4:18 EDT) PTT 32 26 - 37 secs 02/19/2020 4:[address] [facility] Blood VENOUS BLOOD / Unknown Venipuncture / Unknown 02/19/2020 4:18 EDT 02/19/2020 4:23 EDT Parag Eid MD HEMATOLOGY & PF4 ORDERABLES F inal Result [facility] [address] [place] [address] * BUN (02/19/2020 4:18 EDT) BUN 21 10 - 26 mg/dL 02/19/2020 5:[address] [facility] Blood VENOUS BLOOD / Unknown Venipuncture / Unknown 02/19/2020 4:18 EDT 02/19/2020 4:37 EDT Parag Eid MD CHEMISTRY & BLOOD GAS ORDERAB LES Final Result Performing Organization Address [facility] de Phone Number [facility] [address] [place] [address] * (ABNORMAL) CREATININE (02/19/2020 4:18 EDT) Creatinine 0.48(L) 0.52 - 1.04 mg/dL 02/19/2020 5:[address] [facility] eGFR 113 >60 mL/min/1.7 3m2 02/19/2020 5:[address] [facility] Comment:eGFR calculated mickey redd CKD-EPI equation for non- Americans. Multiply eGFR by 1.16 for patients. Blood VENOUS BLOOD / Unknown Venipuncture / Unknown 02/19/2020 4:18 EDT 02/19/2020 4:37 EDT Joyce Lee MD CHEMISTRY & BLOOD GAS ORDERABLES Final Result Performing Organization Address [facility] de Phone Number [facility] [address] [place] [address] * (ABNORMAL) COMPLETE BLOOD COUNT (02/19/2020 4:18 EDT) WBC 7.94 4.00 - 12.40 K/cmm 02/19/2020 4:[address] [facility] RBC 3.30(L) 3.86 - 5.04 M/cmm 02/19/2020 4:[address] [facility] Hemoglobin 11.0(L) 11.6 - 15.2 gm/dL 02/19/2020 4:[address] [facility] HCT 32.7(L) 34.9 - 44.4 % 02/19/2020 4:[address] [facility] MCV 99(H) 81 - 98 fl 02/19/2020 4:[address] [facility] MCH 33.3 26.7 - 33.3 pg 02/19/2020 4:[address] [facility] MCHC 33.6 32.1 - 35.9 gm/dL 02/19/2020 4:[address] [facility] RDW-CV 14.0 <14.7 % 02/19/2020 4:[address] [facility] RDW-SD 51.6(H) <50.4 fl 02/19/2020 4:[address] [facility] PLT 150 141 - 377 K/cmm 02/19/2020 4:[address] [facility] MPV 10.5 9.5 - 12.7 fl 02/19/2020 4:[address] [facility] Blood VENOUS BLOOD / Unknown Venipuncture / Unknown 02/19/2020 4:18 EDT 02/19/2020 4:24 EDT Joyce Lee MD HEMATOLOGY & PF4 ORDERABLES Shannon l Result [facility] [address] [place] [address] * (ABNORMAL) POCT GLUCOSE, INTERFACED (02/19/2020 0:00 EDT) [facility] Glucose, POC 104(H) 70 - 100 mg/dL 02/19/2020 6:[address] [facility] corporate staff accountant ID [id number] 02/19/2020 6:[address] [facility] HN LAB POC COMMENT (GLUCOSE) Test Performed by Nursing Services 02/19/2020 6:[address] [facility] Blood CAPILLARY BLOOD / Unknown 02/19/2020 02/19/2020 6:06 EDT Joyce Lee MD POINT OF CARE TEST ORDERABLES Fi nal Result Performing Organization Address City/[facility]/ZIP Co de Phone Number [facility] [address] [place] [address] * HN LAB DIFF PATH REVIEW - COAG (02/18/2020 20:34 EDT) [facility] Pathology Review Comment - Coagulation Ken Woodruff MD 02/22/2020 14:[address] [facility] Blood VENOUS BLOOD / Unknown Venipuncture / Unknown 02/18/2020 20:34 EDT 02/18/2020 20:38 EDT Frank Hardwick MD HEMATOLOGY & PF4 ORDERABLES Fin al Result Performing Organization Address City/[facility] Co de Phone Number [facility] [address] [place] [address] * (ABNORMAL) LA CONFIRM TEST (02/18/2020 20:34 EDT) [facility] Dilute Yung Viper Venom Time Confirm 34.8(H) 25.1 - 30.2 secs 02/22/2020 13:[address] [facility] LA Ratio 1.03 <=1.16 02/22/2020 13:[address] [facility] Blood VENOUS BLOOD / Unknown Venipuncture / Unknown 02/18/2020 20:34 EDT 02/18/2020 20:38 EDT Frank Hardwick MD HEMATOLOGY & PF4 ORDERABLES Fin al Result Performing Organization Address [facility] de Phone Number [facility] [address] [place] [address] * ELECTROLYTES (02/18/2020 20:34 EDT) [facility] Sodium 143 136 - 145 mEq/L 02/18/2020 20:[address] [facility] Potassium 3.5 3.5 - 5.0 mEq/L 02/18/2020 20:[address] [facility] Chloride 110 96 - 110 mEq/L 02/18/2020 20:[address] [facility] CO2 Total 31 22 - 32 mEq/L 02/18/2020 20:[address] [facility] Blood VENOUS BLOOD / Unknown Venipuncture / Unknown 02/18/2020 20:34 EDT 02/18/2020 20:38 EDT us Parag Eid MD CHEMISTRY & BLOOD GAS ORDERAB LES Final Result [facility] [address] [place] [address] * (ABNORMAL) LUPUS ANTICOAGULANT CASCADE (02/18/2020 20:34 EDT) [facility] Summary Negative for detection of lupus anticoagulant (LA). ??Where clinical suspicion for antiphospholipid syndrome is high, it may be appropriate ??to perform alternative LA or aPL assays. ?? The laboratory criteria for Antiphospholipid Syndrome (aPL) include positive testing for one of the following on 2 or more occasions, at least 12 weeks apart: 1. Lupus anticoagulant (LA), 2. Cardiolipin antibodies (IgG or IgM) in medium or high titer, 3. Beta2-glycoprotein 1 antibodies (IgG or IgM) in medium or leilani titer. Solid-phase assays for Beta2 glycoprotein 1 (B2GP1) and Cardiolipin antibodies are recommended when evaluating a patient for antiphospholipid syndrome. ??Correlation with those results is advised. There was significant resident/fellow involvement in the diagnostic evaluation of this case. By the signature below, the attending physician certifies that they have 1) personally conducted a gross and/or microscopic examination of the described specimen(s), and/or personally interpreted the results of laboratory testing of the described specimen(s), and 2) personally rendered or confirmed the above diagnosis. Ken Woodruff MD 02/22/20 14:57 02/22/2020 14:[address] [facility] Dilute Viper Venom 39.6(H) 27.2 - 36.9 secs 02/22/2020 14:[address] [facility] Silica Clotting Time 40.1 30.2 - 48.4 secs 02/22/2020 14:[address] [facility] Blood VENOUS BLOOD / Unknown Venipuncture / Unknown 02/18/2020 20:34 EDT 02/18/2020 20:38 EDT us Frank Hardwick MD HEMATOLOGY & PF4 ORDERABLES Fin al Result [facility] [address] [place] [address] * (ABNORMAL) POCT GLUCOSE, INTERFACED (02/18/2020 17:23 EDT) Glucose, POC 105(H) 70 - 100 mg/dL 02/18/2020 17:[address] [facility] corporate staff accountant ID [id number] 02/18/2020 17:[address] [facility] HN LAB POC COMMENT (GLUCOSE) Test Performed by Nursing Services 02/18/2020 17:[address] [facility] Blood CAPILLARY BLOOD / Unknown 02/18/2020 17:23 EDT 02/18/2020 17:24 EDT us Joyce Lee MD POINT OF CARE TEST ORDERABLES Fi nal Result Performing Organization Address City/[facility]/ZIP Co de Phone Number [facility] [address] [place] [address] * (ABNORMAL) ELECTROLYTES (02/18/2020 12:13 EDT) [facility] Signature Sodium 141 136 - 145 mEq/L 02/18/2020 12:[address] [facility] Potassium 3.7 3.5 - 5.0 mEq/L 02/18/2020 12:[address] [facility] Chloride 112(H) 96 - 110 mEq/L 02/18/2020 12:[address] [facility] CO2 Total 28 22 - 32 mEq/L 02/18/2020 12:[address] [facility] Blood VENOUS BLOOD / Unknown Venipuncture / Unknown 02/18/2020 12:13 EDT 02/18/2020 12:20 EDT us Parag Eid MD CHEMISTRY & BLOOD GAS ORDERAB LES Final Result [facility] [address] [place] [address] * (ABNORMAL) POCT GLUCOSE, INTERFACED (02/18/2020 11:27 EDT) Glucose, POC 113(H) 70 - 100 mg/dL 02/18/2020 11:[address] [facility] corporate staff accountant ID [id number] 02/18/2020 11:[address] [facility] HN LAB POC COMMENT (GLUCOSE) Test Performed by Nursing Services 02/18/2020 11:[address] [facility] Blood CAPILLARY BLOOD / Unknown 02/18/2020 11:27 EDT 02/18/2020 11:28 EDT Joyce Lee MD POINT OF CARE TEST ORDERABLES Fi nal Result [facility] [address] [place] [address] * PHOSPHORUS (02/18/2020 5:44 EDT) Phosphorus 2.8 2.5 - 4.5 mg/dL 02/18/2020 6:[address] [facility] Blood VENOUS BLOOD / Unknown Venipuncture / Unknown 02/18/2020 5:44 EDT 02/18/2020 6:11 EDT Parag Eid MD CHEMISTRY & BLOOD GAS ORDERAB LES Final Result Performing Organization Address City/[facility]/ZIP Co de Phone Number [facility] [address] [place] [address] * MAGNESIUM (02/18/2020 5:44 EDT) Magnesium 2.2 1.7 - 2.8 mg/dL 02/18/2020 6:[address] [facility] Blood VENOUS BLOOD / Unknown Venipuncture / Unknown 02/18/2020 5:44 EDT 02/18/2020 6:11 EDT us Parag Eid MD CHEMISTRY & BLOOD GAS ORDERAB LES Final Result Performing Organization Address City/[facility]/ZIP Co de Phone Number [facility] [address] [place] [address] * PROTIME (02/18/2020 5:44 EDT) I.N.R. 1.1 0.9 - 1.1 Ratio 02/18/2020 6:[address] [facility] Pro Time 13.2 10.3 - 13.4 secs 02/18/2020 6:[address] [facility] Blood VENOUS BLOOD / Unknown Venipuncture / Unknown 02/18/2020 5:44 EDT 02/18/2020 6:[address] [facility] - 02/18/2020 6:31 EDT Moderate Intensity Coumadin INR = 2.0-3.0 Adjustments in anticoagulant therapy dose should be based on the INR and NOT on the Protime. us Parag Eid MD HEMATOLOGY & PF4 ORDERABLES F inal Result Performing Organization Address City/[facility]/ZIP Co de Phone Number [facility] [address] [place] [address] * PTT (02/18/2020 5:44 EDT) [facility] PTT 27 26 - 37 secs 02/18/2020 6:[address] [facility] Blood VENOUS BLOOD / Unknown Venipuncture / Unknown 02/18/2020 5:44 EDT 02/18/2020 6:08 EDT us Parag Eid MD HEMATOLOGY & PF4 ORDERABLES F inal Result Performing Organization Address City/[facility]/ZIP Co de Phone Number [facility] [address] [place] [address] * BUN (02/18/2020 5:44 EDT) [facility] BUN 18 10 - 26 mg/dL 02/18/2020 6:[address] [facility] Blood VENOUS BLOOD / Unknown Venipuncture / Unknown 02/18/2020 5:44 EDT 02/18/2020 6:11 EDT us Parag Eid MD CHEMISTRY & BLOOD GAS ORDERAB LES Final Result [facility] [address] [place] [address] * (ABNORMAL) ELECTROLYTES (02/18/2020 5:44 EDT) Sodium 141 136 - 145 mEq/L 02/18/2020 6:[address] [facility] Potassium 3.6 3.5 - 5.0 mEq/L 02/18/2020 6:[address] [facility] Chloride 112(H) 96 - 110 mEq/L 02/18/2020 6:[address] [facility] CO2 Total 25 22 - 32 mEq/L 02/18/2020 6:[address] [facility] Blood VENOUS BLOOD / Unknown Venipuncture / Unknown 02/18/2020 5:44 EDT 02/18/2020 6:11 EDT us Parag Eid MD CHEMISTRY & BLOOD GAS ORDERAB LES Final Result Performing Organization Address City/[facility] Co de Phone Number [facility] [address] [place] [address] * (ABNORMAL) CREATININE (02/18/2020 5:44 EDT) Creatinine 0.47(L) 0.52 - 1.04 mg/dL 02/18/2020 6:[address] [facility] eGFR 114 >60 mL/min/1.7 3m2 02/18/2020 6:[address] [facility] Comment:eGFR calculated mickey redd CKD-EPI equation for non- Americans. Multiply eGFR by 1.16 for patients. Blood VENOUS BLOOD / Unknown Venipuncture / Unknown 02/18/2020 5:44 EDT 02/18/2020 6:11 EDT Joyce Lee MD CHEMISTRY & BLOOD GAS ORDERABLES Final Result [facility] [address] [place] [address] * (ABNORMAL) COMPLETE BLOOD COUNT (02/18/2020 5:44 EDT) WBC 6.87 4.00 - 12.40 K/cmm 02/18/2020 6:[address] [facility] RBC 3.50(L) 3.86 - 5.04 M/cmm 02/18/2020 6:[address] [facility] Hemoglobin 12.3 11.6 - 15.2 gm/dL 02/18/2020 6:[address] [facility] HCT 34.9 34.9 - 44.4 % 02/18/2020 6:14 [facility] MCV 100(H) 81 - 98 fl 02/18/2020 6:14 [facility] MCH 35.1(H) 26.7 - 33.3 pg 02/18/2020 6:14 [facility] MCHC 35.2 32.1 - 35.9 gm/dL 02/18/2020 6:14 [facility] RDW-CV 14.3 <14.7 % 02/18/2020 6:14 [facility] RDW-SD 52.4(H) <50.4 fl 02/18/2020 6:14 [facility] PLT 142 141 - 377 K/cmm 02/18/2020 6:14 [facility] MPV 11.0 9.5 - 12.7 fl 02/18/2020 6:14 [facility] Blood VENOUS BLOOD / Unknown Venipuncture / Unknown 02/18/2020 5:44 EDT 02/18/2020 6:08 EDT us Joyce Lee MD HEMATOLOGY & PF4 ORDERABLES Shannon l Result [facility] [address] [place] [address] * TRIGLYCERIDE (02/18/2020 5:44 EDT) Pathologist [facility] Triglyceride 176 See Note mg/dL 02/18/2020 6:[address] [facility] Comment: Normal: ? <150 mg/dL Borderline High: ??150 - 199 mg/dL High: ? 200 - 499 mg/dL Very High: ?> or = 500 mg/dL Blood VENOUS BLOOD / Unknown Venipuncture / Unknown 02/18/2020 5:44 EDT 02/18/2020 6:11 EDT Claus Piña MD CHEMISTRY & BLOOD GAS ORDERABLES Final Result Performing Organization Address City/[facility] Co de Phone Number [facility] [address] [place] [address] * POCT GLUCOSE, INTERFACED (02/18/2020 5:36 EDT) Glucose, POC 92 70 - 100 mg/dL 02/18/2020 5:[address] [facility] corporate staff accountant ID [id number] 02/18/2020 5:[address] [facility] HN LAB POC COMMENT (GLUCOSE) Test Performed by Nursing Services 02/18/2020 5:[address] [facility] Blood CAPILLARY BLOOD / Unknown 02/18/2020 5:36 EDT 02/18/2020 5:40 EDT Joyce Lee MD POINT OF CARE TEST ORDERABLES Fi nal Result Performing Organization Address [facility] de Phone Number [facility] [address] [place] [address] * (ABNORMAL) ELECTROLYTES (02/17/2020 23:47 EDT) Sodium 138 136 - 145 mEq/L 02/18/2020 0:[address] [facility] Potassium 3.5 3.5 - 5.0 mEq/L 02/18/2020 0:[address] [facility] Chloride 114(H) 96 - 110 mEq/L 02/18/2020 0:[address] [facility] CO2 Total 22 22 - 32 mEq/L 02/18/2020 0:[address] [facility] Blood VENOUS BLOOD / Unknown Venipuncture / Unknown 02/17/2020 23:47 EDT 02/17/2020 23:50 EDT Parag Eid MD CHEMISTRY & BLOOD GAS ORDERAB LES Final Result [facility] [address] [place] [address] * (ABNORMAL) POCT GLUCOSE, INTERFACED (02/17/2020 23:36 EDT) Glucose, POC 119(H) 70 - 100 mg/dL 02/17/2020 23:[address] [facility] corporate staff accountant ID [id number] 02/17/2020 23:[address] [facility] HN LAB POC COMMENT (GLUCOSE) Test Performed by Nursing Services 02/17/2020 23:[address] [facility] Blood CAPILLARY BLOOD / Unknown 02/17/2020 23:36 EDT 02/17/2020 23:41 EDT us Joyce Lee MD POINT OF CARE TEST ORDERABLES Fi nal Result Performing Organization Address City/[facility]/ZIP Co de Phone Number [facility] [address] [place] [address] * (ABNORMAL) POCT GLUCOSE, INTERFACED (02/17/2020 17:39 EDT) Glucose, POC 106(H) 70 - 100 mg/dL 02/17/2020 17:[address] [facility] corporate staff accountant ID [id number] 02/17/2020 17:[address] [facility] HN LAB POC COMMENT (GLUCOSE) Test Performed by Nursing Services 02/17/2020 17:[address] [facility] Blood CAPILLARY BLOOD / Unknown 02/17/2020 17:39 EDT 02/17/2020 17:40 EDT Joyce Lee MD POINT OF CARE TEST ORDERABLES Fi nal Result Performing Organization Address City/[facility]/ZIP Co de Phone Number [facility] [address] [place] [address] * (ABNORMAL) ELECTROLYTES (02/17/2020 16:11 EDT) Sodium 139 136 - 145 mEq/L 02/17/2020 16:[address] [facility] Potassium 4.0 3.5 - 5.0 mEq/L 02/17/2020 16:[address] [facility] Comment:Slight hemolysis rodrigo ntified, interpret with caution as hemolysis will elevate potassium result. Chloride 117(H) 96 - 110 mEq/L 02/17/2020 16:[address] [facility] CO2 Total 18(L) 22 - 32 mEq/L 02/17/2020 16:[address] [facility] Blood VENOUS BLOOD / Unknown Venipuncture / Unknown 02/17/2020 16:11 EDT 02/17/2020 16:15 EDT us Parag Eid MD CHEMISTRY & BLOOD GAS ORDERAB LES Final Result Performing Organization Address City/[facility]/ZIP Co de Phone Number [facility] [address] [place] [address] * (ABNORMAL) POCT GLUCOSE, INTERFACED (02/17/2020 11:26 EDT) Glucose, POC 109(H) 70 - 100 mg/dL 02/17/2020 11:[address] [facility] corporate staff accountant ID [id number] 02/17/2020 11:[address] [facility] HN LAB POC COMMENT (GLUCOSE) Test Performed by Nursing Services 02/17/2020 11:[address] [facility] Blood CAPILLARY BLOOD / Unknown 02/17/2020 11:26 EDT 02/17/2020 11:27 EDT us Joyce Lee MD POINT OF CARE TEST ORDERABLES Fi nal Result [facility] [address] [place] [address] * CT HEAD VENOGRAM W CONTRAST (02/17/2020 11:09 EDT) Anatomical Region Laterality Modality Head Computed Tomogra phy 02/17/2020 15:1 4 EDT Impressions 02/17/2020 15:14 EDT 1. Dural venous sinus thrombosis within the left transverse sinus, and to a lesser extent the right transverse sinus, left sigmoid sinus and internal jugular vein, as well as within the left vein of Kristen, not significantly changed compared to the 02/14/2020 CT venogram. 2. Postsurgical changes related to left parenchymal hematoma evacuation with increasing fluid in the soft tissues surrounding the craniectomy. 3. No new or enlarging intracranial hemorrhage with slight interval improvement of local mass effect. Left uncal herniation is unchanged. I have personally reviewed the images and the above interpretation and agree with the findings. Narrative 02/17/2020 15:14 EDT EXAM: CT VENOGRAM HEAD W CONTRAST HISTORY: Dural venous sinus thrombosis, follow up. COMPARISON: Noncontrast CT head 02/16/2020, CT venogram 02/14/2020. TECHNIQUE: CT venogram of the head with intravenous contrast. Maximal intensity projected reformatted images were obtained, adjusted on an independent workstation, and reviewed prior to interpretation. Structured report code: [id number] FINDINGS: VEINS: Thrombus within the left transverse sinus with a short segment extending across midline into the right transverse sinus is unchanged. Additional thrombus within the left sigmoid sinus and proximal internal jugular vein are also unchanged. Thrombus within the left vein of Kristen is also noted, also not significantly changed. No evidence of deep cerebral vein thrombosis. ARTERIES: While evaluation of the arteries is limited on venous phase imaging, there is no evidence of arterial stenosis, aneurysm, or other arterial abnormality. ADDITIONAL FINDINGS: Non-Angiographic Intracranial Contents: Postsurgical changes from parenchymal hematoma evacuation in the left temporal and parietal lobes with no change in a moderate residual blood products. Local mass effect has minimally improved, with decreasing mass effect on the left lateral ventricle and 3rd ventricle. Left-sided uncal herniation has not significantly changed. Bones: Status post left hemicolectomy. Orbits: No significant abnormality. Paranasal Sinuses/Mastoid Air Cells: Predominantly clear. Extracranial Soft Tissues: Postoperative changes along the left hemicraniectomy with a subgaleal drain noted. There has been interval increase in soft tissue edema overlying the craniotomy as well as increasing fluid along the subgaleal drain measuring up to 10 mm in thickness. Nasopharyngeal and endotracheal tubes are partially imaged. Procedure Note Jose Enriquez MD - 02/17/2020 EXAM: CT VENOGRAM HEAD W CONTRAST HISTORY: Dural venous sinus thrombosis, follow up. COMPARISON: Noncontrast CT head 02/16/2020, CT venogram 02/14/2020. TECHNIQUE: CT venogram of the head with intravenous contrast. Maximalintensity projected reformatted images were obtained, adjusted on anindependent workstation, and reviewed prior to interpretation. Structuredreport code: [email or web address] FINDINGS: VEINS: Thrombus within the left transverse sinus with a short segment extendingacross midline into the right transverse sinus is unchanged. Additionalthrombus within the left sigmoid sinus and proximal internal jugular veinare also unchanged. Thrombus within the left vein of Kristen is also noted, also notsignificantly changed. No evidence of deep cerebral vein thrombosis. ARTERIES: While evaluation of the arteries is limited on venous phase imaging, thereis no evidence of arterial stenosis, aneurysm, or other arterialabnormality. ADDITIONAL FINDINGS: Non-Angiographic Intracranial Contents: Postsurgical changes from parenchymal hematoma evacuation in the lefttemporal and parietal lobes with no change in a moderate residual bloodproducts. Local mass effect has minimally improved, with decreasing masseffect on the left lateral ventricle and 3rd ventricle. Left-sided uncalherniation has not significantly changed. Bones: Status post left hemicolectomy. Orbits: No significant abnormality. Paranasal Sinuses/Mastoid Air Cells: Predominantly clear. Extracranial Soft Tissues: Postoperative changes along the left hemicraniectomy with a subgalealdrain noted. There has been interval increase in soft tissue edemaoverlying the craniotomy as well as increasing fluid along the subgalealdrain measuring up to 10 mm in thickness. Nasopharyngeal and endotrachealtubes are partially imaged. IMPRESSION 1. Dural venous sinus thrombosis within the left transverse sinus, and toa lesser extent the right transverse sinus, left sigmoid sinus andinternal jugular vein, as well as within the left vein of Kristen, notsignificantly changed compared to the 02/14/2020 CT venogram. 2. Postsurgical changes related to left parenchymal hematoma evacuationwith increasing fluid in the soft tissues surrounding the craniectomy. 3. No new or enlarging intracranial hemorrhage with slight intervalimprovement of local mass effect. Left uncal herniation is unchanged. I have personally reviewed the images and the above interpretation andagree with the findings. Cecelia Rosario DO IMG CT ORDERABLES Final Result * (ABNORMAL) ELECTROLYTES (02/17/2020 9:45 EDT) Sodium 137 136 - 145 mEq/L 02/17/2020 10:[address] [facility] Potassium 3.4(L) 3.5 - 5.0 mEq/L 02/17/2020 10:[address] [facility] Chloride 115(H) 96 - 110 mEq/L 02/17/2020 10:[address] [facility] CO2 Total 18(L) 22 - 32 mEq/L 02/17/2020 10:[address] [facility] Blood VENOUS BLOOD / Unknown Venipuncture / Unknown 02/17/2020 9:45 EDT 02/17/2020 10:08 EDT Parag Eid MD CHEMISTRY & BLOOD GAS ORDERAB LES Final Result Performing Organization Address City/[facility]/ZIP Co de Phone Number [facility] [address] [place] [address] * PHOSPHORUS (02/17/2020 5:19 EDT) Phosphorus 2.7 2.5 - 4.5 mg/dL 02/17/2020 5:[address] [facility] Blood VENOUS BLOOD / Unknown Venipuncture / Unknown 02/17/2020 5:19 EDT 02/17/2020 5:25 EDT Parag Eid MD CHEMISTRY & BLOOD GAS ORDERAB LES Final Result [facility] [address] [place] [address] * (ABNORMAL) MAGNESIUM (02/17/2020 5:19 EDT) Magnesium 1.6(L) 1.7 - 2.8 mg/dL 02/17/2020 5:[address] [facility] Blood VENOUS BLOOD / Unknown Venipuncture / Unknown 02/17/2020 5:19 EDT 02/17/2020 5:25 EDT Parag Eid MD CHEMISTRY & BLOOD GAS ORDERAB LES Final Result Performing Organization Address [facility] Co de Phone Number [facility] [address] [place] [address] * CREATININE (02/17/2020 5:19 EDT) Creatinine 0.55 0.52 - 1.04 mg/dL 02/17/2020 5:[address] [facility] eGFR 108 >60 mL/min/1.7 3m2 02/17/2020 5:[address] [facility] Comment:eGFR calculated mickey redd CKD-EPI equation for non- Americans. Multiply eGFR by 1.16 for patients. Blood VENOUS BLOOD / Unknown Venipuncture / Unknown 02/17/2020 5:19 EDT 02/17/2020 5:25 EDT Joyce Lee MD CHEMISTRY & BLOOD GAS ORDERABLES Final Result Performing Organization Address [facility] Co de Phone Number [facility] [address] [place] [address] * (ABNORMAL) COMPLETE BLOOD COUNT (02/17/2020 5:19 EDT) WBC 7.76 4.00 - 12.40 K/cmm 02/17/2020 5:[address] [facility] RBC 3.52(L) 3.86 - 5.04 M/cmm 02/17/2020 5:[address] [facility] Hemoglobin 11.9 11.6 - 15.2 gm/dL 02/17/2020 5:[address] [facility] HCT 35.5 34.9 - 44.4 % 02/17/2020 5:[address] [facility] MCV 101(H) 81 - 98 fl 02/17/2020 5:[address] [facility] MCH 33.8(H) 26.7 - 33.3 pg 02/17/2020 5:[address] [facility] MCHC 33.5 32.1 - 35.9 gm/dL 02/17/2020 5:[address] [facility] RDW-CV 14.2 <14.7 % 02/17/2020 5:[address] [facility] RDW-SD 52.1(H) <50.4 fl 02/17/2020 5:[address] [facility] PLT 142 141 - 377 K/cmm 02/17/2020 5:[address] [facility] MPV 10.6 9.5 - 12.7 fl 02/17/2020 5:[address] [facility] Blood VENOUS BLOOD / Unknown Venipuncture / Unknown 02/17/2020 5:19 EDT 02/17/2020 5:25 EDT us Joyce Lee MD HEMATOLOGY & PF4 ORDERABLES Shannon l Result Performing Organization Address [facility] de Phone Number [facility] [address] [place] [address] * (ABNORMAL) PROTIME (02/17/2020 5:19 EDT) I.N.R. 1.2(H) 0.9 - 1.1 Ratio 02/17/2020 5:[address] [facility] Pro Time 13.9(H) 10.3 - 13.4 secs 02/17/2020 5:[address] [facility] Blood VENOUS BLOOD / Unknown Venipuncture / Unknown 02/17/2020 5:19 EDT 02/17/2020 5:[address] [facility] - 02/17/2020 5:49 EDT Moderate Intensity Coumadin INR = 2.0-3.0 Adjustments in anticoagulant therapy dose should be based on the INR and NOT on the Protime. us Parag Eid MD HEMATOLOGY & PF4 ORDERABLES F inal Result Performing Organization Address [facility] Co de Phone Number [facility] [address] [place] [address] * PTT (02/17/2020 5:19 EDT) PTT 26 26 - 37 secs 02/17/2020 5:[address] [facility] Blood VENOUS BLOOD / Unknown Venipuncture / Unknown 02/17/2020 5:19 EDT 02/17/2020 5:25 EDT us Parag Eid MD HEMATOLOGY & PF4 ORDERABLES F inal Result Performing Organization Address City/[facility]/ZIP Co de Phone Number [facility] [address] [place] [address] * (ABNORMAL) BUN (02/17/2020 5:19 EDT) BUN 9(L) 10 - 26 mg/dL 02/17/2020 5:[address] [facility] Blood VENOUS BLOOD / Unknown Venipuncture / Unknown 02/17/2020 5:19 EDT 02/17/2020 5:25 EDT us Parag Eid MD CHEMISTRY & BLOOD GAS ORDERAB LES Final Result Performing Organization Address City/[facility]/ZIP Co de Phone Number [facility] [address] [place] [address] * (ABNORMAL) ELECTROLYTES (02/17/2020 5:19 EDT) Sodium 139 136 - 145 mEq/L 02/17/2020 5:[address] [facility] Potassium 3.5 3.5 - 5.0 mEq/L 02/17/2020 5:[address] [facility] Chloride 113(H) 96 - 110 mEq/L 02/17/2020 5:[address] [facility] CO2 Total 22 22 - 32 mEq/L 02/17/2020 5:[address] [facility] Blood VENOUS BLOOD / Unknown Venipuncture / Unknown 02/17/2020 5:19 EDT 02/17/2020 5:25 EDT us Parag Eid MD CHEMISTRY & BLOOD GAS ORDERAB LES Final Result Performing Organization Address City/[facility]/ZIP Co de Phone Number [facility] [address] [place] [address] * (ABNORMAL) POCT GLUCOSE, INTERFACED (02/17/2020 5:18 EDT) Glucose, POC 115(H) 70 - 100 mg/dL 02/17/2020 5:[address] [facility] corporate staff accountant ID [id number] 02/17/2020 5:[address] [facility] HN LAB POC COMMENT (GLUCOSE) Test Performed by Nursing Services 02/17/2020 5:[address] [facility] Blood CAPILLARY BLOOD / Unknown 02/17/2020 5:18 EDT 02/17/2020 5:23 EDT us Jonatan Kang MD POINT OF CARE TEST ORDERABLES Fi nal Result Performing Organization Address [facility]/ZIP Co de Phone Number [facility] [address] [place] [address] * (ABNORMAL) POCT GLUCOSE, INTERFACED (02/16/2020 23:28 EDT) Glucose, POC 120(H) 70 - 100 mg/dL 02/16/2020 23:[address] [facility] corporate staff accountant ID [id number] 02/16/2020 23:[address] [facility] HN LAB POC COMMENT (GLUCOSE) Test Performed by Nursing Services 02/16/2020 23:[address] [facility] Blood CAPILLARY BLOOD / Unknown 02/16/2020 23:28 EDT 02/16/2020 23:37 EDT us Joyce Lee MD POINT OF CARE TEST ORDERABLES Fi nal Result Performing Organization Address City/[facility]/ZIP Co de Phone Number [facility] [address] [place] [address] * (ABNORMAL) ELECTROLYTES (02/16/2020 23:28 EDT) Sodium 138 136 - 145 mEq/L 02/16/2020 23:[address] [facility] Potassium 3.2(L) 3.5 - 5.0 mEq/L 02/16/2020 23:[address] [facility] Chloride 111(H) 96 - 110 mEq/L 02/16/2020 23:[address] [facility] CO2 Total 22 22 - 32 mEq/L 02/16/2020 23:[address] [facility] Blood VENOUS BLOOD / Unknown Venipuncture / Unknown 02/16/2020 23:28 EDT 02/16/2020 23:32 EDT us Parag Eid MD CHEMISTRY & BLOOD GAS ORDERAB LES Final Result [facility] [address] [place] [address] * XR FEEDING TUBE PLACEMENT (02/16/2020 21:27 EDT) Anatomical Region Laterality Modality Abdomen Computed Radiogr aphy 02/17/2020 8:08 EDT Narrative 02/17/2020 8:08 EDT XR FEEDING TUBE PLACEMENT ??02/16/2020 9:16 PM Signs and Symptoms/Comments: ?? NGT placement confirmation Comparison: CT chest 02/15/2020. Findings: Portable AP view centered over the lower chest upper abdomen demonstrates that the feeding tube courses below the diaphragm with the tip approximated to the gastric antrum/proximal duodenum. This is neither a complete view of the chest nor of the abdomen. ??If either view is needed, formal films are recommended. I have personally reviewed the images and the above interpretation and agree with the findings. Procedure Note Nelson Araujo MD - 02/17/2020 XR FEEDING TUBE PLACEMENT 02/16/2020 9:16 PM Signs and Symptoms/Comments: NGT placement confirmation Comparison: CT chest 02/15/2020. Findings: Portable AP view centered over the lower chest upper abdomen demonstratesthat the feeding tube courses below the diaphragm with the tipapproximated to the gastric antrum/proximal duodenum. This is neither a complete view of the chest nor of the abdomen. Ifeither view is needed, formal films are recommended. I have personally reviewed the images and the above interpretation andagree with the findings. us Parag Eid MD IMG DIAGNOSTIC IMAGING ORDERA BLES Final Result * POCT GLUCOSE, INTERFACED (02/16/2020 17:37 EDT) Glucose, POC 95 70 - 100 mg/dL 02/16/2020 17:[address] [facility] corporate staff accountant ID [id number] 02/16/2020 17:[address] [facility] HN LAB POC COMMENT (GLUCOSE) Test Performed by Nursing Services 02/16/2020 17:[address] [facility] Blood CAPILLARY BLOOD / Unknown 02/16/2020 17:37 EDT 02/16/2020 17:37 EDT Joyce Lee MD POINT OF CARE TEST ORDERABLES Fi nal Result Performing Organization Address [facility] Co de Phone Number [facility] [address] [place] [address] * (ABNORMAL) ELECTROLYTES (02/16/2020 17:23 EDT) Sodium 134(L) 136 - 145 mEq/L 02/16/2020 17:[address] [facility] Potassium 3.6 3.5 - 5.0 mEq/L 02/16/2020 17:[address] [facility] Chloride 106 96 - 110 mEq/L 02/16/2020 17:[address] [facility] CO2 Total 25 22 - 32 mEq/L 02/16/2020 17:[address] [facility] Blood VENOUS BLOOD / Unknown Venipuncture / Unknown 02/16/2020 17:23 EDT 02/16/2020 17:29 EDT us Parag Eid MD CHEMISTRY & BLOOD GAS ORDERAB LES Final Result Performing Organization Address City/[facility]/ZIP Co de Phone Number [facility] [address] [place] [address] * CT HEAD WO CONTRAST (02/16/2020 17:13 EDT) Anatomical Region Laterality Modality Head Computed Tomogra phy 02/16/2020 17:3 0 EDT Impressions 02/16/2020 17:30 EDT 1. Expected postoperative changes related to evacuation of left temporoparietal parenchymal hematoma. Small residual hemorrhages are present at the periphery of the evacuation site. 2. There is been improved left to right midline shift, currently 8 mm, previously 10 mm. 3. High density is again seen in the left transverse sinus and left vein of Kristen corresponds to known venous thrombosis. Narrative 02/16/2020 17:30 EDT EXAM: CT HEAD WO CONTRAST HISTORY: Intracranial hemorrhage, follow up; fu L frontotemporal hemorrhage sp craniectomy and clot evacuation ?? TECHNIQUE: CT head without contrast. Structured report code: NR.CT01 COMPARISON: CT head February 16, 2020 FINDINGS: PARENCHYMA: Patient has undergone interval evacuation of a left temporoparietal hematoma. The majority of the large hematoma seen on the prior study has been evacuated. There are several small residual hematomas at the periphery of the evacuation site with associated surrounding edema. There is approximately 8 mm of uexp-ly-zxyvm midline shift, slightly improved from prior (previously 10 mm). ?? EXTRA-AXIAL SPACES: Expected extra-axial blood products in the region of the craniectomy. No extra- axial mass. VENTRICULAR SYSTEM: Continued effacement of the left lateral ventricle, slightly improved compared to the prior study. No evidence of right lateral ventricle dilatation to suggest ventricular trapping. VESSELS: Limited evaluation without IV contrast. High density in the left transverse sinus corresponds to known venous sinus thrombosis. 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 No new high density vessels. BONES: Interval large left convexity craniectomy. No evidence of fracture. ORBITS: No significant abnormality. PARANASAL SINUSES/MASTOID AIR CELLS: Predominantly clear. EXTRACRANIAL SOFT TISSUES: Endotracheal tube is partially included in the [id number]-el-rvel. Included soft tissues are unremarkable aside from postsurgical changes. Procedure Note Shawn Anton MD - 02/16/2020 EXAM: CT HEAD WO CONTRAST HISTORY: Intracranial hemorrhage, follow up; fu L frontotemporalhemorrhage sp craniectomy and clot evacuation TECHNIQUE: CT head without contrast. Structured report code: NR.CT01 COMPARISON: CT head February 16, 2020 FINDINGS: PARENCHYMA: Patient has undergone interval evacuation of a left temporoparietalhematoma. The majority of the large hematoma seen on the prior study hasbeen evacuated. There are several small residual hematomas at theperiphery of the evacuation site with associated surrounding edema. Thereis approximately 8 mm of hxqr-ft-ehord midline shift, slightly improvedfrom prior (previously 10 mm). EXTRA-AXIAL SPACES: Expected extra-axial blood products in the region of the craniectomy. Noextra- axial mass. VENTRICULAR SYSTEM: Continued effacement of the left lateral ventricle, slightly improvedcompared to the prior study. No evidence of right lateral ventricledilatation to suggest ventricular trapping. VESSELS: Limited evaluation without IV contrast. High density in the lefttransverse sinus corresponds to known venous sinus thrombosis. Inaddition, high density in the left vein of Kristen corresponds to knowncortical vein thrombosis. No new high density vessels. BONES: Interval large left convexity craniectomy. No evidence of fracture. ORBITS: No significant abnormality. PARANASAL SINUSES/MASTOID AIR CELLS: Predominantly clear. EXTRACRANIAL SOFT TISSUES: Endotracheal tube is partially included in the sdrdh-om-lhtf. Includedsoft tissues are unremarkable aside from postsurgical changes. IMPRESSION 1. Expected postoperative changes related to evacuation of lefttemporoparietal parenchymal hematoma. Small residual hemorrhages arepresent at the periphery of the evacuation site. 2. There is been improved left to right midline shift, currently 8 mm,previously 10 mm. 3. High density is again seen in the left transverse sinus and left veinof Kristen corresponds to known venous thrombosis. Parag Eid MD [facility] ORDERABLES Final Resul t * (ABNORMAL) POCT BLOOD GAS, EG6 I-STAT (02/16/2020 16:35 EDT) iSTAT pH 7.44 7.35 - 7.45 02/16/2020 16:[address] [facility] iSTAT pCO2 34(L) 35 - 45 mmHg 02/16/2020 16:41 [facility] i-STAT pO2 137(H) 80 - 105 mmHg 02/16/2020 16:[address] [facility] iSTAT TCO2 24 23 - 27 mmol/L 02/16/2020 16:[address] [facility] i-STAT O2 Saturation 99(H) 95 - 98 % 02/16/2020 16:[address] [facility] Base Deficit, i-STAT 1 -2 - 3 02/16/2020 16:[address] [facility] Sample Source ARTERIAL 02/16/2020 16:[address] [facility] corporate staff accountant ID [id number] 02/16/2020 16:[address] [facility] Comment (EG6) Test Performed by Respiratory. For non-arterial reference ranges, please see ISTAT procedure 02/16/2020 16:41 [facility] Comment:For arterial collect ion, the Laboratory recommends that the Modified Bertin test be performed to determine that collateral circulation is present from the ulnar artery in the event that thrombosis of the radial artery should occur. Performance of the Modified Bertin test should be documented in the patients' chart Blood ARTERIAL LINE TIP SUBMITTED SPECIMEN / Unknown 02/16/2020 16:35 EDT 02/16/2020 16:41 EDT us Michelet Paz MD POINT OF CARE TEST ORDERAB LES Final Result Performing Organization Address City/State/[facility] Co de Phone Number [facility] [address] [place] [address] * US UPPER VENOUS DUPLEX (DVT) BILATERAL (02/16/2020 16:11 EDT) Anatomical Region Laterality Modality Vascular Ultrasound Narrative 02/18/2020 8:20 EDT ?Positive for acute deep and superficial vein thrombosis in the left upper extremity. ?Positive for acute superficial vein thrombosis in the right upper extremity. Negative for deep vein thrombosis in the right upper extremity. ?Critical results given to Dr. Eid at 16:10 on 02-16-20 Left Upper Venous [...] normal compressibility with no intraluminal echoes present. Aníbal Leon MD [facility] ORDERABLES Final Result * US LOWER VENOUS DUPLEX (DVT) BILATERAL [...] Obesity, CVA, Anticoagulation therapy and Hypercoaguable state. Parag Eid MD [facility] ORDERABLES Fi nal Result * SURGICAL PATHOLOGY (02/16/2020 12:30 EDT) Final Diagnosis A. HEMORRHAGE, LEFT TEMPOROPARIETAL, RESECTION: - Acute hemorrhage with small fragments of brain and vascular tissue, see comment. 02/19/2020 13:44 [facility] at 1343 Diagnosis Comment Microscopic review shows abundant acute hemorrhage with scattered small fragments of unremarkable neuropil and vascular structures. 02/19/2020 13:44 [facility] Attestation By the signature below, the attending physician certifies that they have 1) personally conducted a gross and/or microscopic examination of the described specimen(s), and/or personally interpreted the results of laboratory testing of the described specimen(s), and 2) personally rendered or confirmed the above diagnosis. 02/19/2020 13:44 [facility] at 1343 Clinical History Cerebral venous thrombosis; intraparenchymal hemorrhage of brain 02/19/2020 13:44 [facility] Gross Description A. Received in normal saline labelled with proper patient identification (initials C, L) and clot is an ovoid portion of red-brown ragged to cauterized hemorrhage (4.5 x 2.6 x 1.8 cm). The cut surfaces are red solid and homogeneous. Cosmetics Demonstrator sections are submitted in A1-A2. 02/16/2020 16:02 02/19/2020 13:44 [facility] Scanned Images 02/19/2020 13:44 [facility] Tissue HEMATOMA / Unknown 0 12:30 EDT 02/16/2020 14:31 EDT us Claus Piña MD PATHOLOGY ORDERABLES Final Resul t [facility] [address] [place] [address] * (ABNORMAL) PROTIME (02/16/2020 12:04 EDT) I.N.R. 1.2(H) 0.9 - 1.1 Ratio 02/16/2020 12:31 [facility] Pro Time 13.7(H) 10.3 - 13.4 secs 02/16/2020 12:[address] [facility] Blood VENOUS BLOOD / Unknown Venipuncture / Unknown 02/16/2020 12:04 EDT 02/16/2020 12:[address] [facility] - 02/16/2020 12:31 EDT Moderate Intensity Coumadin INR = 2.0-3.0 Adjustments in anticoagulant therapy dose should be based on the INR and NOT on the Protime. us Trenton Marlow MD HEMATOLOGY & PF4 ORDERA BLES Final Result [facility] [address] [place] [address] * PTT (02/16/2020 12:04 EDT) PTT 28 26 - 37 secs 02/16/2020 12:[address] [facility] Blood VENOUS BLOOD / Unknown Venipuncture / Unknown 02/16/2020 12:04 EDT 02/16/2020 12:09 EDT us Trenton Marlow MD HEMATOLOGY & PF4 ORDERA BLES Final Result Performing Organization Address [facility] Co de Phone Number [facility] [address] [place] [id number] * HEPARIN LEVEL - UNFRACTIONATED HEPARIN (02/16/2020 12:04 EDT) Heparin Level-UFH <0.10 Therapeutic Range: 0.30 - 0.70 IU/mL 02/16/2020 12:[address] [facility] Blood VENOUS BLOOD / Unknown Venipuncture / Unknown 02/16/2020 12:04 EDT 02/16/2020 12:09 EDT us Trenton Marlow MD HEMATOLOGY & PF4 ORDERA BLES Final Result Performing Organization Address City/[facility]/ZIP Co de Phone Number [facility] [address] [place] [address] * (ABNORMAL) POCT BLOOD GAS, CG8 I-STAT (02/16/2020 11:40 EDT) iSTAT pH 7.40 7.35 - 7.45 02/16/2020 11:45 [facility] iSTAT pCO2 41 35 - 45 mmHg 02/16/2020 11:45 [facility] i-STAT pO2 151(H) 80 - 105 mmHg 02/16/2020 11:45 [facility] iSTAT TCO2 27 23 - 27 mmol/L 02/16/2020 11:45 [facility] i-STAT O2 Saturation 99(H) 95 - 98 % 02/16/2020 11:45 [facility] iSTAT Sodium 136 136 - 145 mmol/L 02/16/2020 11:45 [facility] iSTAT Potassium 3.5 3.5 - 5.0 mmol/L 02/16/2020 11:45 [facility] iSTAT Glucose 127(H) 70 - 100 mg/dL 02/16/2020 11:45 [facility] iSTAT Hematocrit 37 35 - 44 % PCV 02/16/2020 11:45 [facility] iSTAT Ionized Calcium 1.13 1.12 - 1.32 mmol/L 02/16/2020 11:45 [facility] Base Excess 1 -2 - 3 mmol/L 02/16/2020 11:45 [facility] Sample Source NOT GIVEN 02/16/2020 11:45 [facility] corporate staff accountant ID [id number] 02/16/2020 11:45 [facility] HN LAB POC COMMENT (CG8) Test performed by Anesthesia. Therapeutic interventaional range is dependent upon patient population and procedure type. 02/16/2020 11:45 [facility] Comment:For arterial collect ion, the Laboratory recommends that the Modified Bertin test be performed to determine that collateral circulation is present from the ulnar artery in the event that thrombosis of the radial artery should occur. Performance of the Modified Bertin test should be documented in the patients' chart Blood ARTERIAL BLOOD / Unknown 02/16/2020 11:40 EDT 02/16/2020 11:45 EDT us Michelet Paz MD POINT OF CARE TEST ORDERAB LES Final Result [facility] [address] [place] [address] * TYPE AND SCREEN (02/16/2020 9:50 EDT) ABO AB 02/16/2020 11:[address] [facility] Rh Factor Positive 02/16/2020 11:[address] [facility] Antibody Screen Negative 02/16/2020 11:[address] [facility] Specimen Expires: 02/19/2020 @ 23:59 02/16/2020 11:[address] [facility] Blood VENOUS BLOOD / Unknown Venipuncture / Unknown 02/16/2020 9:50 EDT 02/16/2020 10:31 EDT us Trenton Marlow MD BLOOD BANK TESTS Edited Result - Final Performing Organization Address [facility]/ZIP Co de Phone Number [facility] [address] [place] [address] * (ABNORMAL) POCT GLUCOSE, INTERFACED (02/16/2020 5:27 EDT) Glucose, POC 139(H) 70 - 100 mg/dL 02/16/2020 8:[address] [facility] corporate staff accountant ID [id number] 02/16/2020 8:[address] [facility] HN LAB POC COMMENT (GLUCOSE) Test Performed by Nursing Services 02/16/2020 8:[address] [facility] Blood CAPILLARY BLOOD / Unknown 02/16/2020 5:27 EDT 02/16/2020 8:51 EDT us Joyce Lee MD POINT OF CARE TEST ORDERABLES Fi nal Result [facility] [address] [place] [id number] * CT HEAD WO CONTRAST (02/16/2020 4:52 EDT) Anatomical Region Laterality Modality Head Computed Tomogra phy 02/16/2020 9:53 EDT Impressions 02/16/2020 9:53 EDT 1. Slight interval increase in the size of the parenchymal hematoma in the left temporal and parietal as well as associated vasogenic edema and mass effect. 2. Mild dilatation of the right lateral ventricle and the temporal horn of the left lateral ventricle suggesting ventricular entrapment. 3. Dural venous sinus and cortical vein thrombosis. I have personally reviewed the images and the above interpretation and agree with the findings. Narrative 02/16/2020 9:[address] HEAD WO CONTRAST 02/16/2020 4:52 AM HISTORY: Intracranial hemorrhage, follow up. COMPARISON: CT head without contrast 15 hours prior. TECHNIQUE: CT head without contrast. FINDINGS: Again seen is the intraparenchymal hemorrhage in the left temporal and parietal lobes. The overall size of the hematoma has increased slightly measuring approximately 7.2 x 5.1 x 4.7 cm as compared to 6.9 x 5.0 x 4.4 cm. Surrounding vasogenic edema vasogenic edema and local sulcal effacement has also increased as well as midline shift from left to right, now approximately 10 mm, increased from 9 mm. Medialization of the left uncus is noted. The coronal, ambient and quadrigeminal plate cisterns are tight. No transtentorial or cerebellar tonsillar herniation is noted. Effacement of the left lateral ventricle and third ventricle is similar to prior. The right lateral ventricle is slightly enlarged as is the temporal horn of the left lateral ventricle likely due to entrapment. The fourth ventricle remains normal in caliber. Hyperdense vessel is again seen over the left temporal lobe consistent corresponding to known thrombosis of the vein of Kristen. Hyperdensity is also noted in the left transverse and sigmoid sinuses as well as the distal transverse sinus on the right consistent with intraluminal thrombus. The orbits are unremarkable. Paranasal sinuses and mastoid air cells are predominantly clear. 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 Metallic hardware in the mandible is partially visualized. Procedure Note Eneida Brar MD - 02/16/2020 CT HEAD WO CONTRAST 02/16/2020 4:52 AM HISTORY: Intracranial hemorrhage, follow up. COMPARISON: CT head without contrast 15 hours prior. TECHNIQUE: CT head without contrast. FINDINGS: Again seen is the intraparenchymal hemorrhage in the left temporal andparietal lobes. The overall size of the hematoma has increased slightlymeasuring approximately 7.2 x 5.1 x 4.7 cm as compared to 6.9 x 5.0 x 4.4cm. Surrounding vasogenic edema vasogenic edema and local sulcal effacementhas also increased as well as midline shift from left to right, nowapproximately 10 mm, increased from 9 mm. Medialization of the left uncusis noted. The coronal, ambient and quadrigeminal plate cisterns are tight.No transtentorial or cerebellar tonsillar herniation is noted. Effacement of the left lateral ventricle and third ventricle is similar toprior. The right lateral ventricle is slightly enlarged as is the temporalhorn of the left lateral ventricle likely due to entrapment. The fourthventricle remains normal in caliber. Hyperdense vessel is again seen over the left temporal lobe consistentcorresponding to known thrombosis of the vein of Kristen. Hyperdensity isalso noted in the left transverse and sigmoid sinuses as well as thedistal transverse sinus on the right consistent with intraluminalthrombus. The orbits are unremarkable. Paranasal sinuses and mastoid air cells are predominantly clear. 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 IMPRESSION 1. Slight interval increase in the size of the parenchymal hematoma in theleft temporal and parietal as well as associated vasogenic edema and masseffect. 2. Mild dilatation of the right lateral ventricle and the temporal horn ofthe left lateral ventricle suggesting ventricular entrapment. 3. Dural venous sinus and cortical vein thrombosis. I have personally reviewed the images and the above interpretation andagree with the findings. us Cecelia Rosario DO G CT ORDERABLES Final Result * CREATININE (02/16/2020 3:08 EDT) Creatinine 0.62 0.52 - 1.04 mg/dL 02/16/2020 3:[address] [facility] eGFR 104 >60 mL/min/1.7 3m2 02/16/2020 3:[address] [facility] Comment:eGFR calculated mickey redd CKD-EPI equation for non- Americans. Multiply eGFR by 1.16 for patients. Blood VENOUS BLOOD / Unknown Venipuncture / Unknown 02/16/2020 3:08 EDT 02/16/2020 3:12 EDT Joyce Lee MD CHEMISTRY & BLOOD GAS ORDERABLES Final Result Performing Organization Address [facility] de Phone Number [facility] [address] [place] [address] * (ABNORMAL) ELECTROLYTES (02/16/2020 3:08 EDT) Sodium 133(L) 136 - 145 mEq/L 02/16/2020 3:[address] [facility] Potassium 3.8 3.5 - 5.0 mEq/L 02/16/2020 3:[address] [facility] Chloride 101 96 - 110 mEq/L 02/16/2020 3:[address] [facility] CO2 Total 25 22 - 32 mEq/L 02/16/2020 3:[address] [facility] Blood VENOUS BLOOD / Unknown Venipuncture / Unknown 02/16/2020 3:08 EDT 02/16/2020 3:12 EDT Joyce Lee MD CHEMISTRY & BLOOD GAS ORDERABLES Final Result Performing Organization Address [facility] de Phone Number [facility] [address] [place] [address] * (ABNORMAL) COMPLETE BLOOD COUNT (02/16/2020 3:08 EDT) WBC 9.67 4.00 - 12.40 K/cmm 02/16/2020 3:[address] [facility] RBC 4.22 3.86 - 5.04 M/cmm 02/16/2020 3:[address] [facility] Hemoglobin 14.1 11.6 - 15.2 gm/dL 02/16/2020 3:[address] [facility] HCT 40.8 34.9 - 44.4 % 02/16/2020 3:[address] [facility] MCV 97 81 - 98 fl 02/16/2020 3:[address] [facility] MCH 33.4(H) 26.7 - 33.3 pg 02/16/2020 3:[address] [facility] MCHC 34.6 32.1 - 35.9 gm/dL 02/16/2020 3:[address] [facility] RDW-CV 13.8 <14.7 % 02/16/2020 3:[address] [facility] RDW-SD 48.6 <50.4 fl 02/16/2020 3:[address] [facility] PLT 154 141 - 377 K/cmm 02/16/2020 3:[address] [facility] MPV 10.3 9.5 - 12.7 fl 02/16/2020 3:[address] [facility] Blood VENOUS BLOOD / Unknown Venipuncture / Unknown 02/16/2020 3:08 EDT 02/16/2020 3:12 EDT us Joyce Lee MD HEMATOLOGY & PF4 ORDERABLES Shannon menjivar Result [facility] [address] [place] [address] * HEPARIN LEVEL - UNFRACTIONATED HEPARIN (02/16/2020 3:08 EDT) Heparin Level-UFH 0.60 Therapeutic Range: 0.30 - 0.70 IU/mL 02/16/2020 3:[address] [facility] Comment:Unfractionated hepar in therapeutic range = 0.3-0.7 IU/ml - This test is not intended for monitoring direct Xa inhibitors, direct thrombin inhibitors, or fondaparinux.- Exogenous ATIII is NOT supplied in this assay. For unexpected or persistently low levels, consider measuring patient's ATIII level. Results will be overestimated in the presence of direct Xa inhibitors (rivaroxaban, apixaban, edoxaban). Blood VENOUS BLOOD / Unknown Venipuncture / Unknown 02/16/2020 3:08 EDT 02/16/2020 3:12 EDT us Joyce Lee MD HEMATOLOGY & PF4 ORDERABLES Shannon l Result [facility] [address] [place] [address] * (ABNORMAL) POCT GLUCOSE, INTERFACED (02/16/2020 0:56 EDT) Glucose, POC 131(H) 70 - 100 mg/dL 02/16/2020 8:[address] [facility] corporate staff accountant ID [id number] 02/16/2020 8:[address] [facility] HN LAB POC COMMENT (GLUCOSE) Test Performed by Nursing Services 02/16/2020 8:[address] [facility] Blood CAPILLARY BLOOD / Unknown 02/16/2020 0:56 EDT 02/16/2020 8:50 EDT us Joyce Lee MD POINT OF CARE TEST ORDERABLES Fi nal Result Performing Organization Address City/[facility]/ZIP Co de Phone Number [facility] SERVICES [address] [place] [id number] * (ABNORMAL) POCT GLUCOSE, INTERFACED (02/15/2020 18:12 EDT) Glucose, POC 128(H) 70 - 100 mg/dL 02/16/2020 8:[address] [facility] corporate staff accountant ID [id number] 02/16/2020 8:[address] [facility] HN LAB POC COMMENT (GLUCOSE) Test Performed by Nursing Services 02/16/2020 8:[address] [facility] Blood CAPILLARY BLOOD / Unknown 02/15/2020 18:12 EDT 02/16/2020 8:49 EDT us Joyce Lee MD POINT OF CARE TEST ORDERABLES Fi nal Result [facility] [address] [place] [id number] * US ABDOMEN LIMITED (02/15/2020 17:40 EDT) Anatomical Region Laterality Modality Abdomen, Body Ultrasound 02/15/2020 18:1 1 EDT Impressions 02/15/2020 18:11 EDT 1. There is a 1.5 cm circumscribed anechoic lesion in the left hepatic lobe, consistent with a simple hepatic cyst. The smaller lesions seen on CT were not well evaluated on ultrasound. There are no concerning hepatic lesions. 2. Mild hepatic steatosis and borderline hepatomegaly. I have personally reviewed the images and the above interpretation and agree with the findings. Narrative 02/15/2020 18:11 EDT US ABDOMEN LIMITED ??02/15/2020 3:04 PM SIGNS AND SYMPTOMS/COMMENTS: Further evaluation of liver lesions seen on CT scan COMPARISON: None. TECHNIQUE: Grayscale and Doppler ultrasound evaluation of the right upper quadrant of the abdomen was performed. FINDINGS: PANCREAS: Not well evaluated due to overlying bowel gas, but no gross abnormality identified. LIVER: The liver measures 19.4 cm in length, which is upper limits of normal. The hepatic parenchyma is mildly hyperechoic. There is a 1.2 x 0.9 x 1.5 cm circumscribed, anechoic lesion in the left hepatic lobe, consistent with findings on CT and likely reflective of a hepatic cyst. RIGHT KIDNEY: The right kidney measures 10.0 cm in length. No mass, cyst, calculus or hydronephrosis. GALLBLADDER: The gallbladder wall measures 2.4 mm in thickness, which is normal. There is no cholelithiasis or biliary sludge. No pericholecystic fluid. The patient was nontender during the exam. BILE DUCTS: The common bile duct measures 3.0 mm in diameter at the andrew hepatis, which is normal. PROXIMAL ABDOMINAL AORTA / IVC: Normal Procedure Note Coby, Tino Skaggs MD - 02/15/2020 US ABDOMEN LIMITED 02/15/2020 3:04 PM SIGNS AND SYMPTOMS/COMMENTS: Further evaluation of liver lesions seen onCT scan COMPARISON: None. TECHNIQUE: Grayscale and Doppler ultrasound evaluation of the right upperquadrant of the abdomen was performed. FINDINGS: PANCREAS: Not well evaluated due to overlying bowel gas, but no grossabnormality identified. LIVER: The liver measures 19.4 cm in length, which is upper limits ofnormal. The hepatic parenchyma is mildly hyperechoic. There is a 1.2 x 0.9x 1.5 cm circumscribed, anechoic lesion in the left hepatic lobe,consistent with findings on CT and likely reflective of a hepatic cyst. RIGHT KIDNEY: The right kidney measures 10.0 cm in length. No mass, cyst,calculus or hydronephrosis. GALLBLADDER: The gallbladder wall measures 2.4 mm in thickness, which isnormal. There is no cholelithiasis or biliary sludge. No pericholecysticfluid. The patient was nontender during the exam. BILE DUCTS: The common bile duct measures 3.0 mm in diameter at the portahepatis, which is normal. PROXIMAL ABDOMINAL AORTA / IVC: Normal IMPRESSION 1. There is a 1.5 cm circumscribed anechoic lesion in the left hepaticlobe, consistent with a simple hepatic cyst. The smaller lesions seen onCT were not well evaluated on ultrasound. There are no concerning hepaticlesions. 2. Mild hepatic steatosis and borderline hepatomegaly. I have personally reviewed the images and the above interpretation andagree with the findings. us Cecelia Rosario DO [facility] US ORDERABLES Final Result * TRANSTHORACIC ECHO (TTE) COMPLETE W/DOPPLER W/CF NO CONTRAST (02/15/2020 15:45 EDT) LA Atrial Length A2C 4.5 cm POINT OF CARE [facility] LA Atrial Area A4C 13.0 cm2 P OINT OF CARE [facility] LA ID/bsa, A-P 1.6 cm/m2 POINT OF CARE [facility] Mitral valve area, PHT, DP 4.7 cm2 POINT OF CARE [facility] FS 28 28 - 44 % POINT OF C ARE [facility] LA ID, A-P, ES 3.3 cm POINT OF CARE [facility] LV PW thickness, ED, PLAX 0.9 0.6 - 1.1 cm POINT OF CARE [facility] Aortic root ID 2.6 cm POINT OF CARE [facility] LV ejection fraction, 1-p A4C 59 % POINT OF C ARE [facility] LV e', lateral 0.11 m/s POINT OF CARE [facility] Mitral deceleration time 162 ms POINT OF CARE [facility] LV IVRT, DP 85 msec POINT OF CARE [facility] Mitral peak gradient, D 2.7 mmHg POINT OF CARE [facility] Mitral E-wave peak velocity 0.8 m/s POINT OF CARE [facility] Mitral pressure half-time 47 ms POINT OF CARE [facility] Mitral A-wave peak velocity 0.8 m/s POINT OF CARE [facility] LV Systolic Volume 24 mL P OINT OF CARE [facility] LV Diastolic Volume 53 mL POINT OF CARE [facility] LA Atrial Length A4C 5.0 cm POINT OF CARE [facility] Mitral deceleration slope 506 cm/s2 POINT OF CARE [facility] LA volume, ES, BP 28.0 ml PO INT OF CARE [facility] LA volume/bsa, ES, A4C 13.0 ml/m2 POINT OF CARE [facility] LA volumes, ES, A4C 28.0 ml POINT OF CARE [facility] LA volume/bsa, ES, BP 13.0 ml/m2 POINT OF CARE [facility] Interventricular Septum to Posterior Wall Thickness Ratio 1 POINT O F CARE [facility] IVS thickness, ED, PLAX 0.8 cm POINT OF CARE [facility] LV e', medial 0.09 m/s POINT OF CARE [facility] LV e', average 0.10 m/s POINT OF CARE [facility] Ascending aorta ID, a-p 3.3 cm POINT OF CARE [facility] LA Atrial Area A2C 13.0 cm2 P OINT OF CARE [facility] LA/aortic root ratio 1.27 POINT OF CARE [facility] LV ID, ED, PLAX 3.6 3.5 - 6.0 cm POINT OF CARE [facility] LV ID, ES, PLAX 2.6 2.1 - 4.0 cm POINT OF CARE [facility] LV E/e', lateral 8.0 POI NT OF CARE [facility] LV E/e', medial 8.0 POIN T OF CARE [facility] LV E/e', average 8 POI NT OF CARE [facility] LV ejection fraction, 1-p A4C 27 % POINT OF C ARE [facility] LV end-diastolic volume, 1-p A4C 56 ml POINT OF CAR E [facility] Anatomical Region Laterality Modality Ultrasound Narrative 02/15/2020 16:16 EDT ?Left Ventricle: Left ventricular systolic function was normal with an ejection fraction of 55-60%. ?Left Ventricle: Left ventricular wall motion was normal; there were no regional wall motion abnormalities. ?Left Ventricle: Left ventricular diastolic parameters were normal. ?Right Ventricle: Right ventricular systolic function was normal. ?Left Atrium: No evidence of right to left shunt with agitated saline study. Left Ventricle The left ventricular cavity was normal in size. Left ventricular systolic function was normal with an ejection fraction of 55-60%. Left ventricular diastolic parameters were normal. Left ventricular wall thickness was normal. Left ventricular wall motion was normal; there were no regional wall motion abnormalities. Right Ventricle The right ventricular cavity was normal in size. Right ventricular systolic function was normal. Right ventricular wall thickness was normal. Left Atrium The left atrium was normal in size. No evidence of right to left shunt with agitated saline study. Right Atrium The right atrium was normal in size. IVC/SVC The inferior vena cava was normal in size. Mitral Valve There was no significant mitral valve stenosis or regurgitation. Tricuspid Valve There was trace tricuspid valve regurgitation. There was no tricuspid valve stenosis. Aortic Valve The aortic valve structure was trileaflet. The aortic leaflets were not thickened. There was no aortic valve stenosis. There was no aortic valve regurgitation. Pulmonic Valve There was no pulmonic valve regurgitation. There was no pulmonic valve stenosis. Ascending Aorta The aorta was normal in size. Pericardium There was no pericardial effusion. Pulmonic Artery Pulmonary systolic pressure was within the normal range, estimated to be 25 mmHg. Study Details Study status: Routine. Transthoracic echocardiography. M-Mode, complete 2D, complete spectral Doppler, and color Doppler.The study was interpreted by [facility]. Pertinent images and digital data are archived for permanent storage and are available for subsequent review. Scanning was performed from the apical, parasternal, subcostal and suprasternal acoustic windows. Saline (bubble) contrast was used during the study. Overall the study quality was suboptimal. The study was difficult due to patient uncooperativeness, clinical status and body habitus. Images were obtained using cardiac ultrasound machine EPIQ #[id number]. us Aníbal Leon MD CARDIAC ECHO ORDERABLES Fin al Result * HEPARIN LEVEL - UNFRACTIONATED HEPARIN (02/15/2020 15:17 EDT) Heparin Level-UFH 0.51 Therapeutic Range: 0.30 - 0.70 IU/mL 02/15/2020 15:[address] [facility] Comment:Unfractionated hepar in therapeutic range = 0.3-0.7 IU/ml - This test is not intended for monitoring direct Xa inhibitors, direct thrombin inhibitors, or fondaparinux.- Exogenous ATIII is NOT supplied in this assay. For unexpected or persistently low levels, consider measuring patient's ATIII level. Results will be overestimated in the presence of direct Xa inhibitors (rivaroxaban, apixaban, edoxaban). Blood VENOUS BLOOD / Unknown Venipuncture / Unknown 02/15/2020 15:17 EDT 02/15/2020 15:20 EDT us Joyce Lee MD HEMATOLOGY & PF4 ORDERABLES Shannon l Result [facility] [address] [place] [id number] * ECG REPORT - SCANNED (02/15/2020 14:37 EDT) 02/15/2020 14:3 7 EDT us Scan 2 Psychiatric Aide Instructor PROCEDURE/MINOR SURGICAL OR DERABLES Final Result * CT CHEST W CONTRAST (02/15/2020 14:02 EDT) Anatomical Region Laterality Modality Chest Computed Tomogra phy 02/15/2020 14:2 0 EDT Impressions 02/15/2020 14:20 EDT 1. Segmental right upper lobe acute pulmonary embolism. 2. 1.3 cm low-density lesion lateral segment left lobe of the right. Liver ultrasound is recommended for further evaluation. 3. Mosaic lung attenuation likely reflects the presence of airways disease. 4. Subpleural regions of atelectasis bilaterally. 5. Calcified right lower lobe granuloma. The critical results of this examination were communicated by phone immediately upon discovery on 02/15/2020 at [address] Greg Head who verbalized understanding according to our critical results reporting policy. Narrative 02/15/2020 14:[address] CHEST W CONTRAST ??02/15/2020 1:42 PM Clinical History/Comments: Shortness of breath; new cerebral venous thrombus without cause, known tobacco use query if underlying malignancy Technique: A contrast-enhanced helical CT acquisition of the chest from apices through the lung bases was performed with a reconstructed slice thickness of 0.9 mm with overlapping 0.45 mm intervals following the intravenous administration of 75-100 cc of 350- 370 mg% nonionic contrast injected at a rate of 4-5 cc/second. ??A small test bolus was used for image acquisition. Scans were reviewed on a dedicated PACS workstation for analysis. The radiologist reviewed and/or adjusted the images for the 3D/MIP rendering on an independent workstation, as necessary, prior to interpretation. Exam Description: CTA of the chest. Comparison: None. Findings: Opacification of the pulmonary vasculature is good. There is an acute posterior segmental right upper lobe pulmonary embolism. Lower neck: No abnormalities. Chest wall soft tissues: There is a benign-appearing calcification within the right breast. Mediastinum and martina: No enlarged mediastinal or hilar lymph nodes. ??The esophagus appears normal. Heart and mediastinal vasculature: ??No abnormalities. Large airways: ??The bronchi are mildly and diffusely thickened throughout both lungs. Lungs: ??The lungs show a abnormal mosaic pattern of attenuation that almost certainly reflects the presence of underlying small airways disease. Scattered areas of linear atelectasis are evident primarily within the subpleural portions of both lower lobes inferior lingula and inferior middle lobe. There is dependent atelectasis within both lower lobes. There is a calcified granuloma within the right lower lobe of lung along the posterior surface of the right diaphragm.. Pleura: No abnormalities. Upper abdomen (limited to upper abdomen, not optimized for abdominal imaging): There is a 13 mm in diameter low-attenuation lesion within the lateral segment left lobe of liver, most likely a cyst or hemangioma. This is probably best further evaluated with ultrasound. Bones: ??No significant abnormalities. Procedure Note Aníbal Mendez MD - 02/15/2020 CT CHEST W CONTRAST 02/15/2020 1:42 PM Clinical History/Comments: Shortness of breath; new cerebral venous thrombus without cause, knowntobacco use query if underlying malignancy Technique: A contrast-enhanced helical CT acquisition of the chest from apicesthrough the lung bases was performed with a reconstructed slice thicknessof 0.9 mm with overlapping 0.45 mm intervals following the intravenousadministration of 75-100 cc of 350- 370 mg% nonionic contrast injected at arate of 4-5 cc/second. A small test bolus was used for image acquisition.Scans were reviewed on a dedicated PACS workstation for analysis. Theradiologist reviewed and/or adjusted the images for the 3D/MIP renderingon an independent workstation, as necessary, prior to interpretation. Exam Description: CTA of the chest. Comparison: None. Findings: Opacification of the pulmonary vasculature is good. There is an acuteposterior segmental right upper lobe pulmonary embolism. Lower neck: No abnormalities. Chest wall soft tissues: There is a benign-appearing calcification withinthe right breast. Mediastinum and martina: No enlarged mediastinal or hilar lymph nodes. Theesophagus appears normal. Heart and mediastinal vasculature: No abnormalities. Large airways: The bronchi are mildly and diffusely thickened throughoutboth lungs. Lungs: The lungs show a abnormal mosaic pattern of attenuation thatalmost certainly reflects the presence of underlying small airwaysdisease. Scattered areas of linear atelectasis are evident primarilywithin the subpleural portions of both lower lobes inferior lingula andinferior middle lobe. There is dependent atelectasis within both lowerlobes. There is a calcified granuloma within the right lower lobe of lungalong the posterior surface of the right diaphragm.. Pleura: No abnormalities. Upper abdomen (limited to upper abdomen, not optimized for abdominalimaging): There is a 13 mm in diameter low-attenuation lesion within thelateral segment left lobe of liver, most likely a cyst or hemangioma. Thisis probably best further evaluated with ultrasound. Bones: No significant abnormalities. IMPRESSION 1. Segmental right upper lobe acute pulmonary embolism. 2. 1.3 cm low-density lesion lateral segment left lobe of the right. Liverultrasound is recommended for further evaluation. 3. Mosaic lung attenuation likely reflects the presence of airwaysdisease. 4. Subpleural regions of atelectasis bilaterally. 5. Calcified right lower lobe granuloma. The critical results of this examination were communicated by phoneimmediately upon discovery on 02/15/2020 [address] Greg Head whoverbalized understanding according to our critical results reportingpolicy. us Reno Castrejon MD IMG CT ORDERABLES Final Result * CT ABDOMEN PELVIS W CONTRAST (02/15/2020 14:02 EDT) Anatomical Region Laterality Modality Computed Tomogra phy 02/15/2020 15:4 9 EDT Impressions 02/15/2020 15:49 EDT 1. No adnexal mass or evidence of malignancy in the abdomen or pelvis. Endovaginal ultrasound however is a better modality then CT to evaluate the ovaries 2. Probable benign hepatic cysts. I have personally reviewed the images and the above interpretation and agree with the findings. Narrative 02/15/2020 15:[address] ABDOMEN PELVIS W CONTRAST ??02/15/2020 1:42 PM Signs and Symptoms/Comments: ?? Screening, ovarian cancer, avg risk Technique: CT of the abdomen and pelvis was performed following the administration intravenous contrast; coronal and sagittal multiplanar reconstructions generated. Comparison: No relevant comparisons available. Findings: Lower chest: For findings in the chest please see dedicated report from CT chest performed concurrently. Hepatobiliary: The liver is diffusely low in attenuation compatible with steatosis. A well delineated fluid attenuating hypodensity in the left hepatic is a benign cyst. Additional hypodensities in both hepatic lobes (axial #56, axial #71) are too small to accurately characterize by CT statistically also represent benign cysts. Homogeneous high density material is present dependently within the gallbladder, likely reflecting vicarious biliary contrast excretion. Spleen, pancreas, adrenal glands: The spleen, pancreas, and adrenal glands are without significant finding. Kidneys, ureters, bladder: The kidneys enhance normally and symmetrically. There are no focal renal lesions. No hydroureteronephrosis. The bladder is decompressed with a Reyes catheter. Uterus, ovaries: The uterus retroverted. No adnexal mass. Bowel: The bowel is nondistended. There is no focal bowel wall thickening or pericolic inflammatory changes. The appendix is normal. The stomach is under distended and incompletely evaluated. Peritoneal cavity / Subperitoneal space: No free fluid or free air. Lymphovascular: No significant vascular abnormality. No lymphadenopathy. Abdominal wall: No bowel containing hernia. Musculoskeletal: There are mild multilevel degenerative endplate changes and Schmorl's nodes are predominantly involving the thoracic spine. There are no concerning osseous lesions. Director Geophysical Laboratory: No additional findings. Procedure Note Tegan Ponce MD - 02/15/2020 CT ABDOMEN PELVIS W CONTRAST 02/15/2020 1:42 PM Signs and Symptoms/Comments: Screening, ovarian cancer, avg risk Technique: CT of the abdomen and pelvis was performed following the administrationintravenous contrast; coronal and sagittal multiplanar reconstructionsgenerated. Comparison: No relevant comparisons available. Findings: Lower chest: For findings in the chest please see dedicated report from CTchest performed concurrently. Hepatobiliary: The liver is diffusely low in attenuation compatible withsteatosis. A well delineated fluid attenuating hypodensity in the lefthepatic is a benign cyst. Additional hypodensities in both hepatic lobes(axial #56, axial #71) are too small to accurately characterize by CTstatistically also represent benign cysts. Homogeneous high densitymaterial is present dependently within the gallbladder, likely reflectingvicarious biliary contrast excretion. Spleen, pancreas, adrenal glands: The spleen, pancreas, and adrenal glandsare without significant finding. Kidneys, ureters, bladder: The kidneys enhance normally and symmetrically.There are no focal renal lesions. No hydroureteronephrosis. The bladder isdecompressed with a Reyes catheter. Uterus, ovaries: The uterus retroverted. No adnexal mass. Bowel: The bowel is nondistended. There is no focal bowel wall thickeningor pericolic inflammatory changes. The appendix is normal. The stomach isunder distended and incompletely evaluated. Peritoneal cavity / Subperitoneal space: No free fluid or free air. Lymphovascular: No significant vascular abnormality. No lymphadenopathy. Abdominal wall: No bowel containing hernia. Musculoskeletal: There are mild multilevel degenerative endplate changesand Schmorl's nodes are predominantly involving the thoracic spine. Thereare no concerning osseous lesions. Director [employer] Laboratory: No additional findings. IMPRESSION 1. No adnexal mass or evidence of malignancy in the abdomen or pelvis.Endovaginal ultrasound however is a better modality then CT to evaluatethe ovaries 2. Probable benign hepatic cysts. I have personally reviewed the images and the above interpretation andagree with the findings. us Reno Castrejon MD [facility] CT ORDERABLES Final Result * CT HEAD WO CONTRAST (02/15/2020 14:01 EDT) Anatomical Region Laterality Modality Head Computed Tomogra phy 02/15/2020 15:2 6 EDT Impressions 02/15/2020 15:26 EDT Interval increase in size of medial component of the parenchymal hematoma in the left temporal and parietal lobes, now with overall size measuring 6.9 x 5.0 x 4.4 cm. There is worsened rightward midline shift of 9 mm compared to 5 mm previously. These findings were communicated to Dr. Leon at 02/15/2020 3:[address] Anton. I have personally reviewed the images and the above interpretation and agree with the findings. Narrative 02/15/2020 15:26 EDT EXAM: CT HEAD WO CONTRAST HISTORY: Cerebral hemorrhage, follow-up. ?? TECHNIQUE: CT head without contrast. Structured report code: NR.CT01 COMPARISON: Multiple prior head CTs, most recent obtained 10 hours prior. FINDINGS: PARENCHYMA: There is redemonstration of an intraparenchymal hemorrhage involving the left temporal and parietal lobes. The overall size of the hematoma appears increased, now measuring 6.9 x 5.0 x 4.4 cm compared to 6.3 x 4.4 x 3.5 cm previously. There is also worsened midline shift of 9 mm compared to 5 mm previously. There is sulcal effacement involving the right cerebral hemisphere. EXTRA-AXIAL SPACES: No extra-axial collection. No extra-axial mass. VENTRICULAR SYSTEM: There is effacement of the left lateral ventricle. No hydrocephalus. VESSELS: Limited evaluation without IV contrast. A hyperdense vessel is again seen overlying the left temporal lobe corresponding to known thrombosis of the vein of Kristen. Hyperdensity in the left transverse sinus corresponds to known venous sinus thrombosis. BONES: No concerning lesions. No evidence of fracture. ORBITS: No significant abnormality. PARANASAL SINUSES/MASTOID AIR CELLS: Predominantly clear. EXTRACRANIAL SOFT TISSUES: Unremarkable. Procedure Note Shawn Anton MD - 02/15/2020 EXAM: CT HEAD WO CONTRAST HISTORY: Cerebral hemorrhage, follow-up. TECHNIQUE: CT head without contrast. Structured report code: NR.CT01 COMPARISON: Multiple prior head CTs, most recent obtained 10 hoursprior. FINDINGS: PARENCHYMA: There is redemonstration of an intraparenchymal hemorrhage involving theleft temporal and parietal lobes. The overall size of the hematoma appearsincreased, now measuring 6.9 x 5.0 x 4.4 cm compared to 6.3 x 4.4 x 3.5 cmpreviously. There is also worsened midline shift of 9 mm compared to 5 mmpreviously. There is sulcal effacement involving the right cerebralhemisphere. EXTRA-AXIAL SPACES: No extra-axial collection. No extra-axial mass. VENTRICULAR SYSTEM: There is effacement of the left lateral ventricle. No hydrocephalus. VESSELS: Limited evaluation without IV contrast. A hyperdense vessel is again seenoverlying the left temporal lobe corresponding to known thrombosis of thevein of Kristen. Hyperdensity in the left transverse sinus corresponds toknown venous sinus thrombosis. BONES: No concerning lesions. No evidence of fracture. ORBITS: No significant abnormality. PARANASAL SINUSES/MASTOID AIR CELLS: Predominantly clear. EXTRACRANIAL SOFT TISSUES: Unremarkable. IMPRESSION Interval increase in size of medial component of the parenchymal hematomain the left temporal and parietal lobes, now with overall size measuring6.9 x 5.0 x 4.4 cm. There is worsened rightward midline shift of 9 mmcompared to 5 mm previously. These findings were communicated to Dr. Leon at 02/15/2020 3:21 [address] Anton. I have personally reviewed the images and the above interpretation andagree with the findings. Reno Castrejon MD [facility] CT ORDERABLES Final Result * (ABNORMAL) POCT GLUCOSE, INTERFACED (02/15/2020 12:20 EDT) Glucose, POC 138(H) 70 - 100 mg/dL 02/15/2020 12:[address] [facility] corporate staff accountant ID [id number] 02/15/2020 12:[address] [facility] HN LAB POC COMMENT (GLUCOSE) Test Performed by Nursing Services 02/15/2020 12:[address] [facility] Blood CAPILLARY BLOOD / Unknown 02/15/2020 12:20 EDT 02/15/2020 12:25 EDT Joyce Lee MD POINT OF CARE TEST ORDERABLES Fi nal Result Performing Organization Address [facility]/ZIP Co de Phone Number [facility] SERVICES [address] [place] [address] * (ABNORMAL) PROTEIN S ACTIVITY (02/15/2020 8:42 EDT) Protein S Activity >150(H) 64 - 147 % 02/17/2020 11:[address] [facility] Comment: a.Acquired Protein S [...] for females. Blood VENOUS BLOOD / Unknown Venipuncture / Unknown 02/15/2020 8:42 EDT 02/15/2020 11:27 EDT Cecelia Rosario DO HEMATOLOGY & PF4 ORDERABLES Fin al Result Performing Organization Address City/[facility]/ZIP Co de Phone Number [facility] [address] [place] [address] * (ABNORMAL) PROTEIN C ACTIVITY (02/15/2020 8:42 EDT) Protein C Clot 55(L) 71 - 199 % 02/17/2020 11:[address] [facility] Comment: a. Acquired Protein [...] be interpreted with caution in this setting. Sample retested, result confirmed Blood VENOUS BLOOD / Unknown Venipuncture / Unknown 02/15/2020 8:42 EDT 02/15/2020 11:27 EDT Cecelia Rosario DO HEMATOLOGY & PF4 ORDERABLES Fin al Result [facility] [address] [place] [address] * (ABNORMAL) POCT GLUCOSE, INTERFACED (02/15/2020 6:15 EDT) [facility] Glucose, POC 126(H) 70 - 100 mg/dL 02/15/2020 6:[address] [facility] corporate staff accountant ID [id number] 02/15/2020 6:[address] [facility] HN LAB POC COMMENT (GLUCOSE) Test Performed by Nursing Services 02/15/2020 6:[address] [facility] Blood CAPILLARY BLOOD / Unknown 02/15/2020 6:15 EDT 02/15/2020 6:15 EDT Joyce Lee MD POINT OF CARE TEST ORDERABLES Fi nal Result Performing Organization Address City/[facility]/ZIP Co de Phone Number [facility] [address] [place] [address] * BETA 2 GLYCOPROTEIN ANTIBODY PANEL (02/15/2020 3:15 EDT) [facility] Beta 2 GP1 Ab IgG, S <9.4 <15.0 (Negative ) U/mL 02/18/2020 14:23 EDT [facility] Beta 2 GP1 Ab IgM, S <9.4 <15.0 (Negative ) U/mL 02/18/2020 14:23 EDT [facility] Comment: Test Performed by: [facility] [address] [place] [address] Investment Representative: Kain Shay M.D. Ph.D.; CLIA# [id number] Blood VENOUS BLOOD / Unknown Venipuncture / Unknown 02/15/2020 3:15 EDT 02/15/2020 3:30 EDT Frank Hardwick MD IMMUNOLOGY AND SEROLOGY ORDERAB LES Final Result [place] [address] [place] [address] * FACTOR V LEIDEN (R506Q) MUTATION, BLOOD (02/15/2020 3:15 EDT) Factor V Leiden Mutation B Negative Negative 02/17/2020 16:27 EDT [facility] F5DNA Interpretation SEE NOTE 02/17/2020 16:27 EDT [facility] Comment: This individual DOES NOT have the factor V Leiden (R506Q) mutation. Although the factor V Leiden mutation is absent, the individual may have other genetic and environmental risk factors for thrombosis. Consider genetic consultation and counseling of potentially affected family members regarding laboratory testing. ADDITIONAL INFORMATION This test is a direct mutation analysis using PCR amplification, signal generation and release by cleavage of sequence specific alleles ([employer], [employer], [place], [place]). This test has been modified from the picker tender helper's instructions. Its performance characteristics were determined by [facility] in a manner consistent with CLIA requirements. This test has not been cleared or approved by the U.S. Food and Drug Administration. F5DNA Reviewed By SEE NOTE 020 16:27 EDT [facility] Comment: RESULT: Glenn Freeman M.D., Ph.D. Test Performed by: [facility] [address] [place] [address] Investment Representative: Kain Shay M.D. Ph.D.; CLIA# [id number] Blood VENOUS BLOOD / Unknown Venipuncture / Unknown 02/15/2020 3:15 EDT 02/15/2020 3:20 EDT us Cecelia Rosario DO PACKAGES & DNA PROBE ORDERABLES Final Result Performing Organization Address City/[facility]/ZIP Co de Phone Number [facility] [address] [place] [address] * (ABNORMAL) CARDIOLIPIN ANTIBODY (02/15/2020 3:15 EDT) Cardiolipin IgG 2.18 <15.00 GPL 02/18/2020 12:[address] [facility] Comment: ?IgG Negative: ??<15.00 GPL ?Indeterminate: ??15.00 - <20.00 GPL ?Low to Medium Positive: ??20.00 - 80.00 GPL ?Strongly Positive: ??> 80.00 GPL Cardiolipin IgM 14.14(H) <12.50 MPL 02/18/2020 12:[address] [facility] Comment: ?IgM Negative: ??<12.50 MPL ?Indeterminate: ??12.50 - <20.00 MPL ?Low to Medium Positive: 20.00 - 80.00 MPL ?Strongly Positive: ??>80.00 MPL Results were obtained with the [employer] RUSTY IgG and IgM III TANI kits. Cardiolipin IgG and IgM values obtained with different manufacturers' assay methods may not be used interchangeably. ??The magnitude of the reported IgG and IgM levels cannot be correlated to an endpoint titer. Blood VENOUS BLOOD / Unknown Venipuncture / Unknown 02/15/2020 3:15 EDT 02/15/2020 3:30 EDT us Cecelia Rosario DO IMMUNOLOGY AND SEROLOGY ORDERAB LES Final Result Performing Organization Address City/[facility]/ZIP Co de Phone Number [facility] [address] [place] [address] * CREATININE (02/15/2020 3:15 EDT) Creatinine 0.61 0.52 - 1.04 mg/dL 02/15/2020 3:[address] [facility] eGFR 105 >60 mL/min/1.7 3m2 02/15/2020 3:[address] [facility] Comment:eGFR calculated mickey redd CKD-EPI equation for non- Americans. Multiply eGFR by 1.16 for patients. Blood VENOUS BLOOD / Unknown Venipuncture / Unknown 02/15/2020 3:15 EDT 02/15/2020 3:30 EDT us Joyce Lee MD CHEMISTRY & BLOOD GAS ORDERABLES Final Result Performing Organization Address [facility] de Phone Number [facility] [address] [place] [address] * ELECTROLYTES (02/15/2020 3:15 EDT) Sodium 136 136 - 145 mEq/L 02/15/2020 3:[address] [facility] Potassium 4.1 3.5 - 5.0 mEq/L 02/15/2020 3:[address] [facility] Chloride 103 96 - 110 mEq/L 02/15/2020 3:[address] [facility] CO2 Total 23 22 - 32 mEq/L 02/15/2020 3:[address] [facility] Blood VENOUS BLOOD / Unknown Venipuncture / Unknown 02/15/2020 3:15 EDT 02/15/2020 3:30 EDT us Joyce Lee MD CHEMISTRY & BLOOD GAS ORDERABLES Final Result Performing Organization Address [facility] Co de Phone Number [facility] [address] [place] [address] * (ABNORMAL) COMPLETE BLOOD COUNT (02/15/2020 3:15 EDT) WBC 9.07 4.00 - 12.40 K/cmm 02/15/2020 3:[address] [facility] RBC 4.84 3.86 - 5.04 M/cmm 02/15/2020 3:[address] [facility] Hemoglobin 15.9(H) 11.6 - 15.2 gm/dL 02/15/2020 3:[address] [facility] HCT 47.3(H) 34.9 - 44.4 % 02/15/2020 3:[address] [facility] MCV 98 81 - 98 fl 02/15/2020 3:[address] [facility] MCH 32.9 26.7 - 33.3 pg 02/15/2020 3:[address] [facility] MCHC 33.6 32.1 - 35.9 gm/dL 02/15/2020 3:[address] [facility] RDW-CV 13.2 <14.7 % 02/15/2020 3:[address] [facility] RDW-SD 47.7 <50.4 fl 02/15/2020 3:[address] [facility] PLT 158 141 - 377 K/cmm 02/15/2020 3:[address] [facility] MPV 10.3 9.5 - 12.7 fl 02/15/2020 3:[address] [facility] Blood VENOUS BLOOD / Unknown Venipuncture / Unknown 02/15/2020 3:15 EDT 02/15/2020 3:20 EDT us Joyce Lee MD HEMATOLOGY & PF4 ORDERABLES Shannon menjivar Result [facility] [address] [place] [address] * HEPARIN LEVEL - UNFRACTIONATED HEPARIN (02/15/2020 3:15 EDT) Heparin Level-UFH 0.55 Therapeutic Range: 0.30 - 0.70 IU/mL 02/15/2020 3:[address] [facility] Comment:Unfractionated hepar in therapeutic range = 0.3-0.7 IU/ml - This test is not intended for monitoring direct Xa inhibitors, direct thrombin inhibitors, or fondaparinux.- Exogenous ATIII is NOT supplied in this assay. For unexpected or persistently low levels, consider measuring patient's ATIII level. Results will be overestimated in the presence of direct Xa inhibitors (rivaroxaban, apixaban, edoxaban). Blood VENOUS BLOOD / Unknown Venipuncture / Unknown 02/15/2020 3:15 EDT 02/15/2020 3:19 EDT us Joyce Lee MD HEMATOLOGY & PF4 ORDERABLES Shannon menjivar Result [facility] [address] [place] [address] * CT HEAD WO CONTRAST (02/15/2020 2:49 EDT) Anatomical Region Laterality Modality Head Computed Tomogra phy 02/15/2020 8:48 EDT Impressions 02/15/2020 8:48 EDT 1. Unchanged size and mass effect of the intraparenchymal hemorrhages compared to [address] angiogram 8 hours prior. No evidence of herniation. 2. Venous thrombosis as above. I have personally reviewed the images and the above interpretation and agree with the findings. Narrative 02/15/2020 8:48 EDT EXAM: CT HEAD WO CONTRAST HISTORY: Stroke, follow up; large volume vomiting, monitor for expanding bleed ?? TECHNIQUE: CT head without contrast. Structured report code: [id number].[email or web address] COMPARISON: CT head 02/15/2020. FINDINGS: PARENCHYMA: Again demonstrated is intraparenchymal hemorrhage involving the left temporal and parietal lobes which measures approximately 6.3 x 4.4 x 3.5 cm, unchanged from comparison 02/15/2020, 2 hours prior. Rightward midline shift measuring approximately 5 mm at the lateral ventricle atria, unchanged. Hypodensity surrounding the hemorrhages represents edema. No evidence of herniation or new foci of hemorrhage are seen. EXTRA-AXIAL SPACES: Effacement of the adjacent parietal and temporal sulci is unchanged. VENTRICULAR SYSTEM: Mild effacement of the left lateral ventricle is unchanged. VESSELS: Limited evaluation without IV contrast. Hyperdense cerebral vein thrombus extending into the left transverse and sigmoid sinuses and internal jugular vein is present. BONES: No concerning lesions. No evidence of fracture. Degenerative changes of the right temporomandibular joint. ORBITS: No significant abnormality. PARANASAL SINUSES/MASTOID AIR CELLS: Predominantly clear. EXTRACRANIAL SOFT TISSUES: Unremarkable. Procedure Note Shanw Anton MD - 02/15/2020 EXAM: CT HEAD WO CONTRAST HISTORY: Stroke, follow up; large volume vomiting, monitor for expandingbleed TECHNIQUE: CT head without contrast. Structured report code: [email or web address] COMPARISON: CT head 02/15/2020. FINDINGS: PARENCHYMA: Again demonstrated is intraparenchymal hemorrhage involving the lefttemporal and parietal lobes which measures approximately 6.3 x 4.4 x 3.5cm, unchanged from comparison 02/15/2020, 2 hours prior. Rightward midlineshift measuring approximately 5 mm at the lateral ventricle atria,unchanged. Hypodensity surrounding the hemorrhages represents edema. Noevidence of herniation or new foci of hemorrhage are seen. EXTRA-AXIAL SPACES: Effacement of the adjacent parietal and temporal sulci is unchanged. VENTRICULAR SYSTEM: Mild effacement of the left lateral ventricle is unchanged. VESSELS: Limited evaluation without IV contrast. Hyperdense cerebral vein thrombusextending into the left transverse and sigmoid sinuses and internaljugular vein is present. BONES: No concerning lesions. No evidence of fracture. Degenerative changes ofthe right temporomandibular joint. ORBITS: No significant abnormality. PARANASAL SINUSES/MASTOID AIR CELLS: Predominantly clear. EXTRACRANIAL SOFT TISSUES: Unremarkable. IMPRESSION 1. Unchanged size and mass effect of the intraparenchymal hemorrhagescompared to [address] angiogram 8 hours prior. No evidence ofherniation. 2. Venous thrombosis as above. I have personally reviewed the images and the above interpretation andagree with the findings. us Joyce Lee MD IMG CT ORDERABLES Final Result * EKG 12-LEAD (02/15/2020 1:52 EDT) 02/15/2020 1:[address] [facility] - 02/15/2020 14:33 EDT ? [facility] ? Test Date: ?2020-02-15 Pat Name: ? YNES WHITE ? Department: ?? [facility] [address] ? Room: ? M307 Gender: ? Female ? 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 [id number] : ?1970 ? Requested By: BARBRA BATISTAH Order Number: [id number] ? Reading MD: ?? RENO AZEVEDO MD ? Measurements Intervals ?[place] ? Rate: ? 68 ? P: ?43 WA: ? 126 ?QRS: ?16 QRSD: ? 89 ? T: ?12 QT: ? 438 ? QTc: ?469 ? Interpretive Statements SINUS RHYTHM WITH MARKED SINUS ARRHYTHMIA LOW QRS VOLTAGE IN PRECORDIAL LEADS NONSPECIFIC ST & T-WAVE ABNORMALITY No previous ECG available for comparison I reviewed the tracing and have either agreed or edited the findings in this report. Electronically Signed On 02-15-2020 14:33:31 EDT by RENO AZEVEDO MD. Procedure Note Reno Azevedo MD - 02/15/2020 [facility] Test Date: 2020-02-15 Pat Name: YNESAiden MATAIE Department: [place] [address] Room[place] 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 Electronically Signed On 02-15-2020 14:33:31 EDT by RENO FORREST. us Joyce Lee MD CARDIAC ECG ORDERABLES Final Res ult [facility] * CT HEAD WO CONTRAST (02/15/2020 0:44 EDT) Anatomical Region Laterality Modality Head Computed Tomogra phy 02/15/2020 9:08 EDT Impressions 02/15/2020 9:08 EDT 1. No significant interval change of parenchymal hematoma centered in the left temporal and parietal lobes with adjacent subarachnoid hemorrhage. Approximately 5 mm of rightward midline shift is unchanged. 2. Redemonstration of dural venous sinus thrombosis as well as thrombus within the vein of Kristen on the left, better characterized on the preceding CT venogram. I have personally reviewed the images and the above interpretation and agree with the findings. Narrative 02/15/2020 9:08 EDT EXAM: CT HEAD WO CONTRAST HISTORY: Stroke, follow up ?? TECHNIQUE: CT head without contrast. Structured report code: [email or web address] COMPARISON: Outside CT head 02/14/2020, CT venogram head 02/14/2020. FINDINGS: PARENCHYMA: Redemonstration of parenchymal hematoma in the left temporal and parietal lobes with surrounding vasogenic edema, not significantly changed from 6 hours prior. Approximately 5 mm of rightward midline shift is unchanged. No new parenchymal hemorrhage. EXTRA-AXIAL SPACES: Areas of subarachnoid hemorrhage along the lateral left temporal convexity are unchanged. No extra-axial mass. VENTRICULAR SYSTEM: Persistent mild mass effect on the left lateral ventricle. No obstructive hydrocephalus. No intraventricular hemorrhage. VESSELS: Limited evaluation without IV contrast. Hyperdense thrombus is again noted in the left transverse and sigmoid sinuses. Linear hyperdensity of along the course of the left vein of Kristen is also noted, compatible with known thrombus. Thrombus within the distal left sigmoid sinus and left internal jugular vein are better appreciated on the preceding CT venogram. BONES: Fixation hardware in the mandible is again noted along with bilateral submandibular joint degenerative changes. No evidence of acute fracture. ORBITS: No significant abnormality. PARANASAL SINUSES/MASTOID AIR CELLS: Predominantly clear. EXTRACRANIAL SOFT TISSUES: Unremarkable. Procedure Note Shawn Anton MD - 02/15/2020 EXAM: CT HEAD WO CONTRAST HISTORY: Stroke, follow up TECHNIQUE: CT head without contrast. Structured report code: [email or web address] COMPARISON: Outside CT head 02/14/2020, CT venogram head 02/14/2020. FINDINGS: PARENCHYMA: Redemonstration of parenchymal hematoma in the left temporal and parietallobes with surrounding vasogenic edema, not significantly changed from 6hours prior. Approximately 5 mm of rightward midline shift is unchanged.No new parenchymal hemorrhage. EXTRA-AXIAL SPACES: Areas of subarachnoid hemorrhage along the lateral left temporal convexityare unchanged. No extra-axial mass. VENTRICULAR SYSTEM: Persistent mild mass effect on the left lateral ventricle. No obstructivehydrocephalus. No intraventricular hemorrhage. VESSELS: Limited evaluation without IV contrast. Hyperdense thrombus is again notedin the left transverse and sigmoid sinuses. Linear hyperdensity of alongthe course of the left vein of Kristen is also noted, compatible with knownthrombus. Thrombus within the distal left sigmoid sinus and left internaljugular vein are better appreciated on the preceding CT venogram. BONES: Fixation hardware in the mandible is again noted along with bilateralsubmandibular joint degenerative changes. No evidence of acute fracture. ORBITS: No significant abnormality. PARANASAL SINUSES/MASTOID AIR CELLS: Predominantly clear. EXTRACRANIAL SOFT TISSUES: Unremarkable. IMPRESSION 1. No significant interval change of parenchymal hematoma centered in theleft temporal and parietal lobes with adjacent subarachnoid hemorrhage.Approximately 5 mm of rightward midline shift is unchanged. 2. Redemonstration of dural venous sinus thrombosis as well as thrombuswithin the vein of Kristen on the left, better characterized on thepreceding CT venogram. I have personally reviewed the images and the above interpretation andagree with the findings. us Joyce Lee MD IMG CT ORDERABLES Final Result * (ABNORMAL) POCT GLUCOSE, INTERFACED (02/14/2020 23:54 EDT) Pathologist [facility] Glucose, POC 111(H) 70 - 100 mg/dL 02/14/2020 23:[address] [facility] corporate staff accountant ID [id number] 02/14/2020 23:[address] [facility] HN LAB POC COMMENT (GLUCOSE) Test Performed by Nursing Services 02/14/2020 23:[address] [facility] Blood CAPILLARY BLOOD / Unknown 02/14/2020 23:54 EDT 02/14/2020 23:55 EDT us Joyce Lee MD POINT OF CARE TEST ORDERABLES Fi nal Result [facility] [address] [place] [address] * MRSA PCR (02/14/2020 22:54 EDT) [facility] MRSA/Staph aureus Result No Staphyloccus aureus detected by PCR Staphylococcus aureus detected by PCR, No Staphyloccus aureus detected by PCR 02/15/2020 11:[address] [facility] Swab ENTIRE NARIS / Unknown Swab / Unknown 02/14/2020 22:54 EDT 02/15/2020 7:09 EDT Amber Greene MD MICROBIOLOGY - GENERAL O RDERABLES Final Result Performing Organization Address [facility] Co de Phone Number [facility] [address] [place] [address] * TROPONIN I (02/14/2020 20:53 EDT) Troponin I (ng/mL) <0.034 <0.034 ng/mL 02/14/2020 21:[address] [facility] Blood VENOUS BLOOD / Unknown Venipuncture / Unknown 02/14/2020 20:53 EDT 02/14/2020 21:[address] [facility] - 02/14/2020 21:52 EDT The results of this assay can be falsely lowered due to the consumption of Biotin. us Joyce Lee MD CHEMISTRY & BLOOD GAS ORDERABLES Final Result Performing Organization Address [facility] Co de Phone Number [facility] [address] [place] [address] * CT HEAD VENOGRAM W CONTRAST (02/14/2020 18:23 EDT) Anatomical Region Laterality Modality Head Computed Tomogra phy 02/15/2020 7:58 EDT Impressions 02/15/2020 7:58 EDT 1. Venous thrombosis in the left internal jugular vein, sigmoid and transverse sinus as well as the vein of Kristen. 2. Intraparenchymal hemorrhage related to the venous thrombosis has increased slightly from prior. 3. Unchanged midline shift. No evidence of herniation. I have personally reviewed the images and the above interpretation and agree with the findings. Narrative 02/15/2020 7:58 EDT EXAM: CT VENOGRAM HEAD W CONTRAST HISTORY: Cerebral hemorrhage suspected COMPARISON: CT head without contrast 4 hours prior TECHNIQUE: CT venogram of the head with intravenous contrast. Maximal intensity projected reformatted images were obtained, adjusted on an independent workstation, and reviewed prior to interpretation. Structured report code: [id number] FINDINGS: VEINS: There is occlusive thrombus in the left transverse sinus and nonocclusive thrombus within the left sigmoid sinus and peripheral aspect of the left internal jugular vein, corresponding to the high density seen on prior head CT. Additional thrombus is seen in the left veins of Kristen. No definite thrombi are seen in the deep cerebral veins. ARTERIES: Please refer to dedicated CT angiography report for complete details. ADDITIONAL FINDINGS: Non-Angiographic Intracranial Contents: Again seen is the intraparenchymal hemorrhage involving the left temporal and parietal lobes. This measures approximately 6.3 x 3.6 x 4.4 cm (about 50 cc volume) in greatest extent, slightly increased from prior exam when it measured approximately 5.7 x 3.2 x 4.4 cm. There is edema surrounding the hemorrhages. No additional areas of hypodensity or other brain parenchymal abnormality. There is no obstructive hydrocephalus. The degree of midline shift is similar, approximately 5 mm to the right. No evidence of herniation at this time. Bones: Degenerative changes are present in the temporomandibular joints. No other significant abnormality. Orbits: No significant abnormality. Paranasal Sinuses/Mastoid Air Cells: Predominantly clear. Extracranial Soft Tissues: Unremarkable. Procedure Note Shawn Anton MD - 02/15/2020 EXAM: CT VENOGRAM HEAD W CONTRAST HISTORY: Cerebral hemorrhage suspected COMPARISON: CT head without contrast 4 hours prior TECHNIQUE: CT venogram of the head with intravenous contrast. Maximalintensity projected reformatted images were obtained, adjusted on anindependent workstation, and reviewed prior to interpretation. Structuredreport code: [email or web address] FINDINGS: VEINS: There is occlusive thrombus in the left transverse sinus and nonocclusivethrombus within the left sigmoid sinus and peripheral aspect of the leftinternal jugular vein, corresponding to the high density seen on priorhead CT. Additional thrombus is seen in the left veins of Kristen. No definite thrombi are seen in the deep cerebral veins. ARTERIES: Please refer to dedicated CT angiography report for complete details. ADDITIONAL FINDINGS: Non-Angiographic Intracranial Contents: Again seen is the intraparenchymal hemorrhage involving the left temporaland parietal lobes. This measures approximately 6.3 x 3.6 x 4.4 cm (about50 cc volume) in greatest extent, slightly increased from prior exam whenit measured approximately 5.7 x 3.2 x 4.4 cm. There is edema surroundingthe hemorrhages. No additional areas of hypodensity or other brainparenchymal abnormality. There is no obstructive hydrocephalus. The degree of midline shift issimilar, approximately 5 mm to the right. No evidence of herniation atthis time. Bones: Degenerative changes are present in the temporomandibular joints. No othersignificant abnormality. Orbits: No significant abnormality. Paranasal Sinuses/Mastoid Air Cells: Predominantly clear. Extracranial Soft Tissues: Unremarkable. IMPRESSION 1. Venous thrombosis in the left internal jugular vein, sigmoid andtransverse sinus as well as the vein of Kristen. 2. Intraparenchymal hemorrhage related to the venous thrombosis hasincreased slightly from prior. 3. Unchanged midline shift. No evidence of herniation. I have personally reviewed the images and the above interpretation andagree with the findings. Brayan Plummer MD [facility] CT ORDERABLES Fi nal Result * CT ANGIO HEAD NECK (02/14/2020 18:23 EDT) Anatomical Region Laterality Modality Head and Neck Computed Tomogra phy 02/15/2020 7:50 EDT Impressions 02/15/2020 7:50 EDT No significant abnormality of the major intracranial or cervical arterial vasculature. Please refer to dedicated CT venogram for findings of venous thrombosis and slight increase in intraparenchymal hemorrhage. I have personally reviewed the images and the above interpretation and agree with the findings. Narrative 02/15/2020 7:50 EDT EXAM: CT ANGIOGRAM HEAD AND NECK WITH CONTRAST HISTORY: Subdural hemorrhage, follow-up; Brain bleed TECHNIQUE: CT angiogram of the head and neck with intravenous contrast. Maximal intensity projected reformatted images were obtained, adjusted on an independent workstation, and reviewed prior to interpretation. Structured report code: [email or web address] COMPARISON: CT head without contrast 4 hours prior. FINDINGS: CTA HEAD: ARTERIES: The intracranial internal carotid arteries, middle and, anterior and posterior cerebral arteries are patent. The intradural vertebral arteries and basilar artery are patent. VEINS: Please refer to dedicated CT venogram for findings of superficial cerebral vein and venous sinus thrombosis. CTA NECK: ARTERIES: There is a three-vessel, left-sided aortic arch. The brachiocephalic and subclavian arteries are patent with no stenosis. The common carotid arteries are patent with no stenosis. The internal carotid arteries are patent with no stenosis. The vertebral arteries are patent with no stenosis. VEINS: Venous thrombosis is present in the peripheral aspect of the left internal jugular vein, better seen on concurrent venogram. ADDITIONAL FINDINGS: Non-angiographic intracranial contents: Please refer to CT head venogram for complete details of slight increase in intraparenchymal hemorrhage and stable midline shift. Bones: Degenerative changes are present in the temporomandibular joints and cervical spine. Cervical soft tissues: There are several hypodense lesions in the left lobe of the thyroid, the largest of which measures less than 1.5 cm and does not require follow-up per ACR guidelines. Lung apices: Clear. Procedure Note Shawn Anton MD - 02/15/2020 EXAM: CT ANGIOGRAM HEAD AND NECK WITH CONTRAST HISTORY: Subdural hemorrhage, follow-up; Brain bleed TECHNIQUE: CT angiogram of the head and neck with intravenous contrast.Maximal intensity projected reformatted images were obtained, adjusted dane independent workstation, and reviewed prior to interpretation.Structured report code: [email or web address] COMPARISON: CT head without contrast 4 hours prior. FINDINGS: CTA HEAD: ARTERIES: The intracranial internal carotid arteries, middle and, anterior andposterior cerebral arteries are patent. The intradural vertebral arteries and basilar artery are patent. VEINS: Please refer to dedicated CT venogram for findings of superficial cerebralvein and venous sinus thrombosis. CTA NECK: ARTERIES: There is a three-vessel, left-sided aortic arch. The brachiocephalic and subclavian arteries are patent with no stenosis. The common carotid arteries are patent with no stenosis. The internal carotid arteries are patent with no stenosis. The vertebral arteries are patent with no stenosis. VEINS: Venous thrombosis is present in the peripheral aspect of the left internaljugular vein, better seen on concurrent venogram. ADDITIONAL FINDINGS: Non-angiographic intracranial contents: Please refer to CT head venogram for complete details of slight increasein intraparenchymal hemorrhage and stable midline shift. Bones: Degenerative changes are present in the temporomandibular joints andcervical spine. Cervical soft tissues: There are several hypodense lesions in the left lobe of the thyroid, thelargest of which measures less than 1.5 cm and does not require follow-upper ACR guidelines. Lung apices: Clear. IMPRESSION No significant abnormality of the major intracranial or cervical arterialvasculature. Please refer to dedicated CT venogram for findings of venousthrombosis and slight increase in intraparenchymal hemorrhage. I have personally reviewed the images and the above interpretation andagree with the findings. us Brayan Plummer MD IMG CT ORDERABLES Fi nal Result * [place] CRITICAL CARE ILL/INJURED PATIENT INIT 30-74 MIN, HC - CRITICAL CARE ILL/INJURED PATIENT INIT 30-74 MIN (02/14/2020 18:00 EDT) Narrative [facility] E[facility] - 02/14/2020 18:00 EDT Toni Gilbert MD ? 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 E[facility] * LIPID PROFILE (INCLUDES CHOLESTEROL, TRIGLYCERIDES, HDL, LDL) (02/14/2020 17:48 EDT) Cholesterol 161 See Note mg/dL 02/14/2020 21:27 [facility] Comment: Acceptable: ?<200 mg/dL Borderline High: 200-239 mg/dL High: ?> or = 240 mg/dL HDL 59 See Note mg/dL 02/14/2020 21:27 [facility] Comment: Low: ? <40 mg/dL Normal: ??40-60 mg/dL High: ?>60 mg/dL LDL, Calculated 81 See Note mg/dL 02/14/2020 21:27 [facility] Comment: Optimal: ? <100 mg/dL Near Optimal: ?100-129 mg/dL Borderline High: 130-159 mg/dL High: ?160-189 mg/dL Very High: ? > or = 190 mg/dL Triglyceride 103 See Note mg/dL 02/14/2020 21:27 [facility] Comment: Normal: ? <150 mg/dL Borderline High: ??150 - 199 mg/dL High: ? 200 - 499 mg/dL Very High: ?> or = 500 mg/dL Chol/HDL Ratio 2.7 See Note 02/14/2020 21:27 [facility] Comment: No reference range has been established for CHOL/HDL ratio. Non HDL Cholesterol 102 See Note mg/dL 02/14/2020 21:27 [facility] Comment: Desirable: ?<130 mg/dL Borderline High: ??130-159 mg/dL High: ? 160-189 mg/dL Very High: ?> or = 190 mg/dL Blood VENOUS BLOOD / Unknown Venipuncture / Unknown 02/14/2020 17:48 EDT 02/14/2020 17:50 EDT Joyce Lee MD CHEMISTRY & BLOOD GAS ORDERABLES Final Result Performing Organization Address [facility] Co de Phone Number [facility] [address] [place] [address] * HEMOGLOBIN A1C (02/14/2020 17:48 EDT) Hemoglobin A1c 5.4 <5.7 % 02/15/2020 8:[address] [facility] Comment: Glycemic Status References: Normal: ??<5.7% Pre-Diabetes: ??5.7% - 6.4% Diagnostic of Diabetes: ??> or = 6.5% (if confirmed) Goals for glycemic control in diabetics (ADA 2017): <7.0% target for non adults with diabetes. <7.5% target for children and adolescents with Type I Diabetes. More or less stringent targets may be appropriate for individual patients. Est Avg Glucose 108 mg/dL 0 8:[address] [facility] Comment: The eAG represents the A1c result expressed as average glucose in mg/dL. Blood VENOUS BLOOD / Unknown Venipuncture / Unknown 02/14/2020 17:48 EDT 02/14/2020 17:50 EDT Joyce eLe MD CHEMISTRY & BLOOD GAS ORDERABLES Final Result Performing Organization Address [facility]/ZIP Co de Phone Number [facility] [address] [place] [address] * (ABNORMAL) BASIC METABOLIC PANEL (BMP) (02/14/2020 17:48 EDT) Sodium 135(L) 136 - 145 mEq/L 02/14/2020 18:[address] [facility] Potassium 4.7 3.5 - 5.0 mEq/L 02/14/2020 18:[address] [facility] Comment:Slight hemolysis rodrigo ntified, interpret with caution as hemolysis will elevate potassium result. Chloride 105 96 - 110 mEq/L 02/14/2020 18:[address] [facility] CO2 Total 26 22 - 32 mEq/L 02/14/2020 18:[address] [facility] Glucose 107(H) 70 - 100 mg/dL 02/14/2020 18:[address] [facility] Calcium 8.8 8.5 - 10.5 mg/dL 02/14/2020 18:[address] [facility] Calculated Calcium 9.1 8.5 - 10.5 mg/dL 02/14/2020 18:24 [facility] Comment:Slight hemolysis rodrigo ntified, interpret with caution as results may be affected due to hemolysis. BUN 11 10 - 26 mg/dL 02/14/2020 18:24 [facility] Comment: Slight hemolysis identified, interpret with caution as results may be affected due to hemolysis. Creatinine 0.66 0.52 - 1.04 mg/dL 02/14/2020 18:[address] [facility] eGFR 102 >60 mL/min/1.7 3m2 02/14/2020 18:24 [facility] Comment:eGFR calculated mickey redd CKD-EPI equation for non- Americans. Multiply eGFR by 1.16 for patients. Blood VENOUS BLOOD / Unknown Venipuncture / Unknown 02/14/2020 17:48 EDT 02/14/2020 17:50 EDT us Brayan Plummer MD CHEMISTRY & BLOOD GA S ORDERABLES Final Result [facility] [address] [place] [address] * (ABNORMAL) COMPLETE BLOOD COUNT AND DIFFERENTIAL (02/14/2020 17:48 EDT) WBC 6.92 4.00 - 12.40 K/cmm 02/14/2020 18:[address] [facility] RBC 4.47 3.86 - 5.04 M/cmm 02/14/2020 18:02 [facility] Hemoglobin 15.1 11.6 - 15.2 gm/dL 02/14/2020 18:02 [facility] HCT 44.8(H) 34.9 - 44.4 % 02/14/2020 18:02 [facility] MCV 100(H) 81 - 98 fl 02/14/2020 18:02 [facility] MCH 33.8(H) 26.7 - 33.3 pg 02/14/2020 18:02 [facility] MCHC 33.7 32.1 - 35.9 gm/dL 02/14/2020 18:02 [facility] RDW-CV 13.4 <14.7 % 02/14/2020 18:02 [facility] RDW-SD 49.4 <50.4 fl 02/14/2020 18:02 [facility] PLT 167 141 - 377 K/cmm 02/14/2020 18:02 [facility] MPV 10.6 9.5 - 12.7 fl 02/14/2020 18:02 [facility] % Neutrophils 72.7 % 02/14/2020 18:02 [facility] % Lymphocytes 21.1 % 02/14/2020 18:02 [facility] % Monocytes 3.3 % 02/14/2020 18:02 [facility] % Eosinophils 2.0 % 02/14/2020 18:02 [facility] % Basophils 0.6 % 02/14/2020 18:02 [facility] % Immature Grans 0.3 % 02/14/20 20 18:02 [facility] Absolute Neutrophils 5.03 2.20 - 8.85 K/cmm 02/14/2020 18:02 [facility] Absolute Lymphocytes 1.46 1.09 - 3.30 K/cmm 02/14/2020 18:02 [facility] Absolute Monocytes 0.23 0.10 - 0.80 K/cmm 02/14/2020 18:02 [facility] Absolute Eosinophils 0.14 0.03 - 0.61 K/cmm 02/14/2020 18:[address] [facility] ABS Basophils 0.04 0.01 - 0.11 K/cm 02/14/2020 18:[address] [facility] Absolute Immature Grans 0.02 0.00 - 0.06 K/cmm 02/14/2020 18:[address] [facility] Type of Differential: Auto 02/14/2020 18:[address] [facility] Blood VENOUS BLOOD / Unknown Venipuncture / Unknown 02/14/2020 17:48 EDT 02/14/2020 17:50 EDT us Brayan Plummer MD PACKAGES & DNA PROBE ORDERABLES Final Result [facility] [address] [place] [address] documented in this encounter Visit Diagnoses Diagnosis Cerebral venous thrombosis- Primary Cerebral thrombosis without mention of cerebral infarction Cerebral venous thrombosis Cerebral thrombosis without mention of cerebral infarction Intraparenchymal hemorrhage of brain (HCC-CMS) Intracerebral hemorrhage Brain herniation (HCC-CMS) Compression of brain Stroke (HCC-CMS) Unspecified cerebral artery occlusion with cerebral infarction Single subsegmental pulmonary embolism without acute cor pulmonale (HCC-CMS) Cerebral edema (HCC-CMS) Cerebral edema Cerebral venous 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 Cerebral venous 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 Brain herniation (HCC-CMS) Compression of brain Cerebral edema (HCC-CMS) Cerebral edema documented in this encounter Admitting Diagnoses Diagnosis Cerebral venous 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 documented in this encounter Administered Medications Inactive Administered Medications - up to 3 most recent administrations Medication Order MAR Action Action Date Dose Rate Site acetaminophen (OFIRMEV) IV solution 1,000 mg 1,000 mg, intravenous, NOW X1, 1 dose, On 02/14/20 at 2044, Is the patient NPO? If No, state reason why oral acetaminophen cannot be used in Comment field. Yes, Is this patient nothing by rectum? If No, state why rectal acetaminophen cannot be used in the Comment field. No, Are NSAIDs contraindicated in this patient? Yes, Is the patient in ED, PACU or ICU? Yes, STAT Given 02/14/2020 20:51 EDT 1,000 mg acetaminophen (TYLENOL) solution unit dose cup 650 mg 650 mg, per ng tube, EVERY 4 HOURS PRN, Starting on Sat02/16/20 at 1100, Until Tiffanie 02/18/20 at 1220, Pain, Routine, Release Given 02/18/2020 2:50 EDT 650 mg Given 02/17/2020 22:01 EDT 650 mg Given 02/17/2020 17:36 EDT 650 mg acetaminophen (TYLENOL) solution unit dose cup 995 mg 995 mg (rounded from 1,000 mg), per ng tube, EVERY 6 HOURS, First dose (after last modification) on Tiffanie 02/18/20 at 1245, Until Discontinued, Routine Given 03/02/2020 8:21 EDT 995 mg Given 03/01/2020 8:50 EDT 995 mg Given 03/01/2020 1:07 EDT 995 mg acetaminophen (TYLENOL) suppository 975 mg 975 mg (rounded from 1,000 mg), rectal, EVERY 6 HOURS, First dose (after last modification) on Tiffanie 02/18/20 at 1245, Until Discontinued, Routine acetaminophen (TYLENOL) tablet 1,000 mg 1,000 mg, oral, EVERY 6 HOURS, First dose (after last modification) on Tiffanie 02/18/20 at 1245, Until Discontinued, Routine Given 03/02/2020 2:29 EDT 1,000 mg Given 03/01/2020 20:13 EDT 1,000 mg Given 03/01/2020 15:12 EDT 1,000 mg acetaminophen (TYLENOL) tablet 650 mg 650 mg, oral, EVERY 4 HOURS PRN, Starting on Sat02/15/20 at 2111, Until Sat02/16/20 at 1104, Pain, Routine Given 02/15/2020 22:13 EDT 650 mg acetaminophen (TYLENOL) tablet 650 mg 650 mg, oral, EVERY 4 HOURS PRN, Starting on Sat02/16/20 at 1100, Until Tiffanie 02/18/20 at 1220, Pain, Routine, Release Given 02/17/2020 14:15 EDT 650 mg Given 02/17/2020 8:34 EDT 650 mg amino acids-protein hydrolysate (PRO SOURCE NOCARB) packet 60 mL 60 mL, feeding tube, 3 TIMES DAILY, First dose on Sat02/16/20 at 1545, Until Discontinued, Routine, Release Given 02/17/2020 8:47 EDT 60 mL Given 02/16/2020 22:58 EDT 60 mL amino acids-protein hydrolysate (PRO SOURCE NOCARB) packet 60 mL 60 mL, feeding tube, 2 TIMES DAILY, First dose (after last modification) on Sat02/17/20 at 2100, Until Discontinued, Routine Given 03/02/2020 8:22 EDT 60 mL Given 03/01/2020 20:13 EDT 60 mL Given 03/01/2020 8:49 EDT 60 mL aspirin chewable tablet 81 mg 81 mg, oral, DAILY, First dose on Sat02/19/20 at 1400, Until Discontinued, Routine Given 03/02/2020 8:21 EDT 81 mg Given 03/01/2020 8:50 EDT 81 mg Given 02/29/2020 8:45 EDT 81 mg bisacodyL (DULCOLAX) suppository 10 mg 10 mg, rectal, EVERY 48 HOURS PRN, Starting on Sat02/18/20 at 0000, Until Sat03/02/20 at 1313, Constipation, Routine Given 02/22/2020 15:39 EDT 10 mg calcium carbonate (TUMS) 200 mg calcium (500 mg) per chewable tablet tablet,chewable 1 Tab 1 Tablet, oral, 4 TIMES DAILY PRN, Starting on Sat02/24/20 at 1033, Until Sat03/02/20 at 1313, Heartburn, Routine Given 03/02/2020 12:05 EDT 1 Tablet dexMEDEtomidine in 0.9 % NaCL (PRECEDEX) 400 mcg/100 mL infusion 0.2-1.4 mcg/kg/hr ? 98.4 kg (4.92-34.44 mL/hr, rounded to 4.9-34.4 mL/hr), intravenous, CONTINUOUS, Starting on Sat02/18/20 at 1000, Until Sat02/19/20 at 1645, Routine Rate Documented 02/19/2020 7:00 EDT 0.699 mcg/kg/hr 17.2 mL/hr Rate Documented 02/19/2020 6:00 EDT 0.699 mcg/kg/hr 17.2 m L/hr New Bag 02/19/2020 5:12 EDT 0.7 mcg/kg/hr 17.2 mL/hr dextrose 5 % and 0.9 % NaCl with KCl 20 mEq/L infusion at 40 mL/hr, intravenous, CONTINUOUS, Starting on Sat02/19/20 at 0915, Until Sat02/19/20 at 1645, Routine Rate Documented 02/19/2020 16:00 EDT 40 mL/hr Rate Documented 02/19/2020 15:00 EDT 40 mL/hr Rate Documented 02/19/2020 14:00 EDT 40 mL/hr docusate (COLACE) liquid 100 mg 100 mg, oral, 2 TIMES DAILY, First dose on Sat02/17/20 at 2100, Until Discontinued, Routine Given 03/01/2020 20:13 EDT 1 00 mg Given 03/01/2020 8:50 EDT 100 mg Given 02/29/2020 21:03 EDT 100 mg enoxaparin (LOVENOX) injection 40 mg 40 mg, subcutaneous, DAILY, First dose on Sat02/20/20 at 1200, Until Discontinued, Routine Given 02/29/2020 8:44 EDT 40 mg Given 02/28/2020 8:15 EDT 40 mg Given 02/27/2020 9:04 EDT 40 mg enoxaparin (LOVENOX) injection 50 mg 50 mg, subcutaneous, NOW X1, 1 dose, On Sat02/29/20 at 1000, STAT Given 02/29/2020 11:00 EDT 50 mg enoxaparin (LOVENOX) injection 90 mg 90 mg (rounded from 89 mg = 1 mg/kg ? 89 kg), subcutaneous, EVERY 12 HOURS, First dose (after last modification) on Sat03/01/20 at 0900, Until Discontinued, Routine Given 03/02/2020 8:22 EDT 90 mg Given 03/01/2020 20:13 EDT 90 mg Given 03/01/2020 8:51 EDT 90 mg fentaNYL citrate (PF) 50 mcg/mL injection 1 dose, Starting on Sat02/14/20 at 1649, Until Sat02/14/20 at 1727 fentaNYL citrate (PF) injection 100 mcg 100 mcg, intravenous, NOW X1, 1 dose, On Sat02/14/20 at 1700, STAT Given 02/14/2020 17:27 EDT 100 mcg fentaNYL citrate (PF) injection 100 mcg 100 mcg, intravenous, NOW X1, 1 dose, On Sat02/14/20 at 1900, STAT Given 02/14/2020 18:48 EDT 100 mcg guaiFENesin tablet 200 mg 200 mg, oral, EVERY 6 HOURS PRN, Starting on Sat02/26/20 at 2340, Until Sat03/02/20 at 1313, Congestion, Cough, Routine heparin in 11/26 NS 25,000 unit/250 mL infusion 17 Units/kg/hr ? 76.4 kg Adjusted weight (12.988 mL/hr, rounded to 13 mL/hr), intravenous, CONTINUOUS, Starting on Sat02/14/20 at 1945, Until Sat02/16/20 at 0750, STAT Rate Documented 02/16/2020 7:00 EDT 17 Units/kg/hr 13 mL/hr Rate Documented 02/16/2020 6:00 EDT 17 Units/kg/hr 13 mL/h r Rate Documented 02/16/2020 5:00 EDT 17 Units/kg/hr 13 mL/h r heparin injection 5,000 Units 5,000 Units, subcutaneous, EVERY 8 HOURS, 3 doses, First dose on Sat02/17/20 at 0845, Last dose on Sat02/18/20 at 0000, Routine Given 02/17/2020 23:34 EDT 5,000 Units Given 02/17/2020 16:03 EDT 5,000 Units Given 02/17/2020 8:46 EDT 5,000 Units heparin injection 5,000 Units 5,000 Units, subcutaneous, EVERY 8 HOURS, First dose (after last reorder) on Sat02/18/20 at 0800, Until Discontinued, Routine Given 02/19/2020 23:56 EDT 5,000 Units Given 02/19/2020 15:24 EDT 5,000 Units Given 02/19/2020 7:52 EDT 5,000 Units hydrALAzine (APRESOLINE) 10 mg in sodium chloride (NS) 0.9 % 50 mL IVPB 10 mg, intravenous, Administer over 20 Minutes, EVERY 1 HOUR PRN, Starting on Sat02/23/20 at 0020, Until Sat03/02/20 at 1313, Routine hydrALAzine (APRESOLINE) injection 10 mg 10 mg, intravenous, EVERY 1 HOUR PRN, Starting on Tu02/16/20 at 1418, Until Sat02/22/20 at 1309, High Blood Pressure, SBP > 140, Routine Given 02/22/2020 7:55 EDT 10 mg Given 02/21/2020 15:23 EDT 10 mg Given 02/21/2020 8:45 EDT 10 mg HYDROmorphone (DILAUDID) tablet 2 mg 2 mg, oral, EVERY 4 HOURS PRN, Starting on Sat02/18/20 at 1222, Until Sat02/19/20 at 0549, Pain, for pain not controlled by acetaminophen, Routine Given 02/19/2020 3:18 EDT 2 mg Given 02/18/2020 21:11 EDT 2 mg HYDROmorphone (DILAUDID) tablet 2-4 mg 2-4 mg, oral, EVERY 4 HOURS PRN, Starting on Sat02/19/20 at 0548, Until Sat03/02/20 at 1313, Pain, for pain not controlled by acetaminophen; 2 for pain <5, 4 for pain>5, Routine Given 03/02/2020 2:28 EDT 4 mg Given 03/01/2020 18:27 EDT 4 mg Given 03/01/2020 5:50 EDT 4 mg HYDROmorphone (PF) (DILAUDID) 0.5 mg/0.5 mL syringe 0.2 mg 0.2 mg, intravenous, EVERY 4 HOURS PRN, Starting on Sat02/18/20 at 1957, Until Sat02/22/20 at 1802, Pain, for pain not controlled by PO medications, Routine Given 02/22/2020 0:18 EDT 0.2 mg Given 02/21/2020 0:30 EDT 0.2 mg Given 02/19/2020 5:56 EDT 0.2 mg impact peptide 1.5 0.09 gram- 1.5 kcal/mL at 28 mL/hr, per ng tube, CONTINUOUS, Starting on Sat02/17/20 at 1245, Until Sat02/17/20 at 2359, Routine, Release Rate Documented 02/17/2020 23:00 EDT 28 mL/hr Rate Documented 02/17/2020 22:00 EDT 28 mL/hr Rate Documented 02/17/2020 21:00 EDT 28 mL/hr insulin aspart U-100 (NOVOLOG FLEXPEN) injection subcutaneous, EVERY 6 HOURS, First dose on Sat02/14/20 at 2045, Until Discontinued, Routine, Indications: SUPPLEMENTAL INSULINIndications:SUPPLEMENTAL INSULIN Given 02/19/2020 17:28 EDT 2 Unit s insulin aspart U-100 (NOVOLOG FLEXPEN) injection subcutaneous, AT BEDTIME, First dose on Sat02/22/20 at 2100, Until Discontinued, Routine insulin aspart U-100 (NOVOLOG FLEXPEN) injection subcutaneous, 3 TIMES DAILY WITH MEALS, First dose (after last reorder) on Sat02/23/20 at 0800, Until Discontinued, Routine, Indications: SUPPLEMENTAL INSULINIndications:SUPPLEMENTAL INSULIN iohexoL (OMNIPAQUE 350) solution 100 mL 100 mL, intravenous, Once in imaging, 1 dose, Starting on Sat02/14/20 at 1801, Until Sat02/14/20 at 1824, Routine, Imaging Protocol Orders Given 02/14/2020 18:24 EDT 99 mL iohexoL (OMNIPAQUE 350) solution 100 mL 100 mL, intravenous, Once in imaging, 1 dose, Starting on Sat02/15/20 at 1342, Until Sat02/15/20 at 1403, Routine, Imaging Protocol Orders Given 02/15/2020 14:03 EDT 95 mL iohexoL (OMNIPAQUE 350) solution 100 mL 100 mL, intravenous, Once in imaging, 1 dose, Starting on Sat02/17/20 at 1057, Until Sat02/17/20 at 1115, Routine, Imaging Protocol Orders Given 02/17/2020 11:15 EDT 65 mL IV iohexoL (OMNIPAQUE 350) solution 100 mL 100 mL, intravenous, Once in imaging, 1 dose, Starting on Sat02/25/20 at 1220, Until Sat02/25/20 at 1241, Routine, Imaging Protocol Orders Given 02/25/2020 12:41 EDT 65 mL IV labetaloL (TRANDATE) injection 10 mg 10 mg, intravenous, EVERY 4 HOURS PRN, Starting on Sat02/14/20 at 2019, Until Sat02/14/20 at 2221, High Blood Pressure, Routine Given 02/14/2020 21:25 EDT 10 mg labetaloL (TRANDATE) injection 10 mg 10 mg, intravenous, EVERY 4 HOURS PRN, Starting on Sat02/15/20 at 1928, Until Sat02/16/20 at 0417, High Blood Pressure, SBP >140, Routine Given 02/16/2020 1:21 EDT 10 mg Given 02/15/2020 22:09 EDT 10 mg labetaloL (TRANDATE) injection 20 mg 20 mg, intravenous, EVERY 4 HOURS PRN, Starting on Tiffanie 02/18/20 at 0643, Until Sat02/22/20 at 1309, High Blood Pressure, for sbp>140, Routine Given 02/22/2020 5:20 EDT 20 mg Given 02/21/2020 19:13 EDT 20 mg Given 02/21/2020 14:38 EDT 20 mg levETIRAcetam (KEPPRA) 500 mg in sodium chloride (NS) 0.9 % 100 mL IVPB 500 mg, intravenous, Administer over 15 Minutes, EVERY 12 HOURS, 14 doses, First dose on Sat02/16/20 at 1130, Last dose on Sat02/22/20 at 2100, Routine, Release Given 02/19/2020 20:01 EDT 500 mg Given 02/19/2020 8:46 EDT 500 mg Given 02/18/2020 21:14 EDT 500 mg levETIRAcetam (KEPPRA) tablet 500 mg 500 mg, oral, EVERY 12 HOURS, 14 doses, First dose on Sat02/16/20 at 1130, Last dose on Sat02/22/20 at 2100, Routine, Release Given 02/22/2020 9:50 EDT 500 mg Given 02/21/2020 20:32 EDT 500 mg Given 02/21/2020 8:52 EDT 500 mg lidocaine (XYLOCAINE) 2 % viscous solution 1 dose, Starting on Sat02/16/20 at 2017, Until Sat03/02/20 at 1313 lisinopriL (PRINIVIL) tablet 20 mg 20 mg, oral, DAILY, First dose on Sat02/21/20 at 1645, Until Discontinued, Routine Given 03/02/2020 8:21 EDT 20 mg Given 03/01/2020 8:50 EDT 20 mg Given 02/29/2020 8:45 EDT 20 mg magnesium sulfate 2g in D5W 50 ml 2 g, intravenous, Administer over 30 Minutes, NOW X1, 1 dose, On Sat02/17/20 at 0800, Routine New Bag 02/17/2020 8:34 EDT 2 g mannitol 25 % injection 50 g 50 g, intravenous, NOW X1, 1 dose, On Sat02/16/20 at 1045, Routine Given 02/16/2020 10:15 EDT 50 g melatonin tablet 3 mg 3 mg, oral, AT BEDTIME, First dose on Sat02/19/20 at 2100, Until Discontinued, Routine Given 03/01/2020 20:13 EDT 3 mg Given 02/29/2020 21:04 EDT 3 mg Given 02/28/2020 20:48 EDT 3 mg metoprolol (LOPRESSOR) injection 5 mg 5 mg, intravenous, EVERY 6 HOURS, First dose on Sat02/18/20 at 0830, Until Discontinued, Routine Given 02/26/2020 9:49 EDT 5 mg Given 02/26/2020 4:11 EDT 5 mg Given 02/25/2020 22:19 EDT 5 mg metoprolol (LOPRESSOR) tablet 25 mg 25 mg, oral, 2 TIMES DAILY, First dose (after last modification) on Sat02/26/20 at 1430, Until Discontinued, Routine Given 03/02/2020 8:21 EDT 25 mg Given 03/01/2020 20:12 EDT 25 mg Given 03/01/2020 8:50 EDT 25 mg midazolam (PF) (VERSED) injection 2 mg 2 mg, intravenous, NOW X1, 1 dose, On Sat02/18/20 at 1445, Routine Given 02/18/2020 14:20 EDT 2 mg morphine injection 2 mg 2 mg, intravenous, EVERY 2 HOURS PRN, Starting on Sat02/14/20 at 2009, Until Sat02/14/20 at 2221, Pain, Routine Given 02/14/2020 21:19 EDT 2 mg morphine injection 2 mg 2 mg, intravenous, EVERY 2 HOURS, First dose (after last modification) on Sat02/14/20 at 2330, Until Discontinued, Routine Given 02/15/2020 12:17 EDT 2 mg Given 02/15/2020 9:25 EDT 2 mg Given 02/15/2020 6:18 EDT 2 mg morphine injection 4 mg 4 mg, intravenous, NOW X1, 1 dose, On Sat02/14/20 at 1945, STAT Given 02/14/2020 19:41 EDT 4 mg Multivitamins with minerals + ferrous gluconate (CENTRUM) oral solution 15 mL 15 mL, feeding tube, DAILY, First dose on Sat02/16/20 at 1545, Until Discontinued, Routine Given 03/02/2020 8:23 EDT 15 mL Given 03/01/2020 8:50 EDT 15 mL Given 02/29/2020 8:46 EDT 15 mL niCARdipine (CARDENE) 25 mg in sodium chloride (NS) 0.9 % 250 mL peripheral infusion 2.5-15 mg/hr (25-150 mL/hr), intravenous, CONTINUOUS, Starting on Sat02/14/20 at 2245, Until Sat02/15/20 at 0940, STAT Rate Change 02/15/2020 6:20 EDT 2.5 mg/hr 25 mL/hr Rate Documented 02/15/2020 6:00 EDT 5 mg/hr 50 mL/hr Rate Documented 02/15/2020 5:00 EDT 5 mg/hr 50 mL/hr niCARdipine (CARDENE) 25 mg in sodium chloride (NS) 0.9 % 250 mL peripheral infusion 2.5-15 mg/hr (25-150 mL/hr), intravenous, CONTINUOUS, Starting on Sat02/16/20 at 0445, Until Sat02/17/20 at 1443, Routine Rate Change 02/17/2020 1:24 EDT 2.5 mg/hr 25 mL/hr Rate Change 02/17/2020 1:01 EDT 5 mg/hr 50 mL/hr Rate Documented 02/17/2020 1:00 EDT 7.5 mg/hr 75 mL/hr nicotine (NICODERM CQ) 7 mg/24 hr patch 1 Patch 1 Patch, transdermal, EVERY 24 HOURS, First dose (after last modification) on Sat02/15/20 at 0900, Until Discontinued, Routine Patch Applied 03/02/2020 8:21 EDT 1 Patch Left Ar m Patch Applied 02/28/2020 8:13 EDT 1 Patch Ri ght Arm Patch Applied 02/27/2020 8:59 EDT 1 Patch Ri ght Arm nutren 1.5 liquid 250 mL 250 mL, per g tube, 4 TIMES DAILY, 28 doses, First dose on Sat02/22/20 at 2100, Last dose on Sat02/29/20 at 1700, Routine Given 02/29/2020 17:30 EDT 250 mL Given 02/29/2020 14:02 EDT 250 mL Given 02/29/2020 8:44 EDT 250 mL ondansetron (PF) (ZOFRAN) injection 4 mg 4 mg, intravenous, EVERY 4 HOURS PRN, Starting on Sat02/16/20 at 1103, Until Sat03/02/20 at 1313, Nausea, Routine Given 02/20/2020 10:27 EDT 4 mg pantoprazole (PROTONIX) injection 40 mg 40 mg, intravenous, DAILY, First dose on Sat02/16/20 at 1130, Until Discontinued, Routine, Release Given 02/18/2020 8:10 EDT 40 mg Given 02/17/2020 8:33 EDT 40 mg Given 02/16/2020 15:28 EDT 40 mg pantoprazole (PROTONIX) tablet 40 mg 40 mg, oral, DAILY, First dose on Sat02/24/20 at 1100, Until Discontinued, Routine Given 03/02/2020 8:21 EDT 40 mg Given 03/01/2020 8:50 EDT 40 mg Given 02/29/2020 8:45 EDT 40 mg papain-alpha amylase-cellulase (CLOG ZAPPER) 2-5 mL 2-5 mL, feeding tube, PRN, Starting on Sat02/16/20 at 2145, Until Sat03/02/20 at 1313, blocked feeding tube, Routine peptamen AF at 10 mL/hr, per g tube, CONTINUOUS, Starting on Sat02/16/20 at 2215, Until Sat02/17/20 at 1232, Routine, Release Rate Documented 02/17/2020 11:00 EDT 10 mL/hr Rate Documented 02/17/2020 6:00 EDT 10 mL/hr Rate Documented 02/17/2020 5:00 EDT 10 mL/hr phenylephrine-lidocaine 0.25 %-3 % (CO-PHENYLCAINE) topical solution 5 mL 5 mL, topical, Once (Without Time Specified), 1 dose, Starting on Sat02/16/20 at 1623, Until Sat03/02/20 at 1313, Routine potassium chloride (KLOR-CON) packet 20 mEq 20 mEq, oral, NOW X1, 1 dose, On Sat02/22/20 at 0000, Routine Given 02/22/2020 0:19 EDT 20 mEq potassium chloride (KLOR-CON) packet 40 mEq 40 mEq, oral, NOW X1, 1 dose, On Sat02/17/20 at 0030, Routine Given 02/17/2020 1:08 EDT 40 mEq potassium chloride (KLOR-CON) packet 40 mEq 40 mEq, oral, NOW X1, 1 dose, On Sat02/17/20 at 1230, Routine Given 02/17/2020 12:37 EDT 40 mEq potassium chloride (KLOR-CON) packet 40 mEq 40 mEq, oral, NOW X1, 1 dose, On Sat02/18/20 at 0315, Routine Given 02/18/2020 3:23 EDT 40 mEq potassium chloride (KLOR-CON) packet 40 mEq 40 mEq, oral, NOW X1, 1 dose, On Sat02/18/20 at 0830, Routine Given 02/18/2020 8:13 EDT 40 mEq potassium chloride (KLOR-CON) packet 40 mEq 40 mEq, oral, NOW X1, 1 dose, On Sat02/18/20 at 2315, Routine Given 02/19/2020 0:00 EDT 40 mEq potassium chloride (KLOR-CON) packet 40 mEq 40 mEq, oral, NOW X1, 1 dose, On Sat02/19/20 at 0615, Routine Given 02/19/2020 5:56 EDT 40 mEq potassium chloride (KLOR-CON) packet 40 mEq 40 mEq, oral, NOW X1, 1 dose, On Sat02/19/20 at 0845, Routine Given 02/19/2020 8:49 EDT 40 mEq prochlorperazine edisylate (COMPAZINE) injection 10 mg 10 mg, intravenous, EVERY 6 HOURS PRN, Starting on Sat02/15/20 at 0136, Until Sat02/19/20 at 1645, Nausea, Routine Given 02/15/2020 22:08 EDT 10 mg Given 02/15/2020 9:26 EDT 10 mg Given 02/15/2020 1:38 EDT 10 mg propOFol (DIPRIVAN) 10 mg/mL injection 1 dose, Starting on Sat02/16/20 at 1409, Until Sat02/16/20 at 1416 propOFol (DIPRIVAN) 1000 mg in 100 mL infusion 5-83 mcg/kg/min ? 98.4 kg (2.952-49.0032 mL/hr, rounded to 3-49 mL/hr), intravenous, CONTINUOUS, Starting on Sat02/16/20 at 1030, Until Sat02/18/20 at 0941, Routine Rate Documented 02/18/2020 9:00 EDT 39.973 mcg/kg/min 23.6 mL/hr Rate Documented 02/18/2020 8:00 EDT 39.973 mcg/kg/min 23.6 mL/hr Rate Documented 02/18/2020 7:00 EDT 39.973 mcg/kg/min 23.6 mL/hr propOFol (DIPRIVAN) 1000 mg in 100 mL infusion 5-83 mcg/kg/min ? 98.4 kg (2.952-49.0032 mL/hr, rounded to 3-49 mL/hr), intravenous, CONTINUOUS, Starting on Sat02/18/20 at 1500, Until Sat02/18/20 at 2001, Routine Rate Documented 02/18/2020 15:00 EDT 59.959 mcg/kg/min 35.4 mL/hr New Bag 02/18/2020 13:29 EDT 60 mcg/kg/min 35.4 mL/hr protamine injection 40 mg 40 mg, intravenous, NOW X1, 1 dose, On Sat02/16/20 at 0830, Routine Given 02/16/2020 8:19 EDT 40 mg QUEtiapine (SEROQUEL) tablet 25 mg 25 mg, oral, AT BEDTIME, First dose on Sat02/24/20 at 2100, Until Discontinued, Routine Given 03/01/2020 20:13 EDT 25 mg Given 02/29/2020 21:04 EDT 25 mg Given 02/28/2020 20:48 EDT 25 mg rocuronium (ZEMURON) 10 mg/mL injection 1 dose, Starting on Sat02/18/20 at 1318, Until Sat02/18/20 at 1358 rocuronium (ZEMURON) injection 100 mg 100 mg, intravenous, NOW X1, 1 dose, On Sat02/18/20 at 1445, Routine Given 02/18/2020 13:58 EDT 100 mg senna (SENOKOT) tablet 1 Tab 1 Tablet, oral, 2 TIMES DAILY, First dose on Sat02/18/20 at 0900, Until Discontinued, Routine Given 03/01/2020 20:12 EDT 1 Tablet Given 03/01/2020 8:50 EDT 1 Tablet Given 02/29/2020 21:04 EDT 1 Tablet sodium acetate 513 mEq/L at 20 mL/hr, intravenous, CONTINUOUS, Starting on Sat02/17/20 at 1845, Until Sat02/19/20 at 1556, STAT Rate Documented 02/19/2020 15:00 EDT 20 mL/hr Rate Documented 02/19/2020 14:00 EDT 20 mL/hr New Bag 02/19/2020 13:22 EDT 20 mL/hr sodium chloride 0.9 % (NS) infusion at 100 mL/hr, intravenous, CONTINUOUS, Starting on Sat02/15/20 at 2130, Until Sat02/16/20 at 0750, Routine Rate Documented 02/16/2020 7:00 EDT 100 mL/hr Rate Documented 02/16/2020 6:00 EDT 100 mL/hr Rate Documented 02/16/2020 5:00 EDT 100 mL/hr sodium chloride 0.9 % BOLUS 1,000 mL 1,000 mL, intravenous, NOW X1, 1 dose, On Sat02/16/20 at 0445, Routine New Bag 02/16/2020 5:25 EDT 1,000 mL sodium chloride 0.9 % with KCl 20 mEq/L infusion at 40 mL/hr, intravenous, CONTINUOUS, Starting on Sat02/16/20 at 1130, Until Sat02/17/20 at 1635, Routine, Release Rate Documented 02/17/2020 16:00 EDT 40 mL/hr Rate Documented 02/17/2020 15:00 EDT 40 mL/hr Rate Documented 02/17/2020 14:00 EDT 40 mL/hr sodium chloride 3 % infusion at 10 mL/hr, 1,000 mL, intravenous, CONTINUOUS, Starting on Sat02/17/20 at 0030, Until Sat02/17/20 at 0549, STAT Rate Documented 02/17/2020 5:00 EDT 10 mL/hr Rate Documented 02/17/2020 4:00 EDT 10 mL/hr Rate Documented 02/17/2020 3:00 EDT 10 mL/hr sodium chloride 3 % infusion at 30 mL/hr, 1,000 mL, intravenous, CONTINUOUS, Starting on Sat02/17/20 at 0845, Until Sat02/17/20 at 1744, STAT Rate Documented 02/17/2020 18:00 EDT 30 mL/hr Rate Documented 02/17/2020 17:00 EDT 30 mL/hr Rate Documented 02/17/2020 16:00 EDT 30 mL/hr sodium chloride 3 % infusion at 20 mL/hr, 500 mL, intravenous, CONTINUOUS, Starting on 02/21/20 at 1645, Until 02/21/20 at 2339, STAT Rate Documented 02/21/2020 23:00 EDT 20 mL/hr Rate Documented 02/21/2020 22:00 EDT 20 mL/hr Rate Documented 02/21/2020 21:00 EDT 20 mL/hr sodium chloride 3 % infusion at 20 mL/hr, intravenous, CONTINUOUS, Starting on 02/22/20 at 0430, Until Sat02/22/20 at 1802, STAT Rate Documented 02/22/2020 17:00 EDT 20 mL/hr Rate Documented 02/22/2020 16:00 EDT 20 mL/hr Rate Documented 02/22/2020 15:00 EDT 20 mL/hr sodium chloride 3% BOLUS 250 mL 250 mL, intravenous, NOW X1, 1 dose, On Sat02/16/20 at 1845, STAT Given 02/16/2020 18:39 EDT 250 mL sodium chloride 3% BOLUS 500 mL 500 mL, intravenous, NOW X1, 1 dose, On Sat02/16/20 at 0815, STAT Given 02/16/2020 8:11 EDT 500 mL documented in this encounter Discontinued Medications Medication Sig Discontinue Reason Start Date End Da te amino acids-protein hydrolysate (PRO SOURCE NOCARB) 15-60 gram-kcal/30 mL packet 60 mL by feeding tube route 2 times daily for 14 days. 03/02/2020 03/02/2020 ibuprofen (MOTRIN) 200 mg tablet Take 200 mg by mouth every 6 hours as needed for Pain. 03/02/2020 documented as of this encounter Active and Recently Administered Medications Times are shown in EDT. Scheduled Medication Order 02/29/2020 03/01/2020 03/02/2020 acetaminophen (TYLENOL) solution unit dose cup 995 mg(Linked Group 1) 995 mg (rounded from 1,000 mg), per ng tube, EVERY 6 HOURS, First dose (after last modification) on [place] 02/18/20 at 1245, Until Discontinued, Routine 0109 (Given - Provider: Judith Harrell RN)0651 (Given - Provider: Judith Harrell RN)1402 (Given - Provider: Anjelica Parra RN)2024 (Given - Provider: Judith Harrell RN) 0107 (Given - Provider: Judith Harrell RN)0850 (Given - Provider: Anjelica Parra RN)1512 (See Alternative - Provider: Anjelica Parra RN)2012 (See Alternative - Provider: Judith Harrell RN) 0229 (See Alternative - Provider: Judith Harrell RN)0821 (Given - Provider: Ebenezer Masters RN) acetaminophen (TYLENOL) suppository 975 mg(Linked Group 1) 975 mg (rounded from 1,000 mg), rectal, EVERY 6 HOURS, First dose (after last modification) on [place] 02/18/20 at 1245, Until Discontinued, Routine 0109 (See Alternative - Provider: Judith Harrell RN)0651 (See Alternative - Provider: Judith Harrell RN)1402 (See Alternative - Provider: Anjelica Parra RN)2024 (See Alternative - Provider: Judith Harrell RN) 010 (See Alternative - Provider: Judith Harrell RN)0850 (See Alternative - Provider: Anjelica Parra RN)1512 (See Alternative - Provider: Anjelica Parra RN)2012 (See Alternative - Provider: Judith Harrell RN) 022 (See Alternative - Provider: Judith Harrell RN)0821 (See Alternative - Provider: Ebenezer Masters RN) acetaminophen (TYLENOL) tablet 1,000 mg(Linked Group 1) 1,000 mg, oral, EVERY 6 HOURS, First dose (after last modification) on [place] 02/18/20 at 1245, Until Discontinued, Routine 0109 (See Alternative - Provider: Judith Harrell RN)0651 (See Alternative - Provider: Judith Harrell RN)1402 (See Alternative - Provider: Anjelica Parra RN)2024 (See Alternative - Provider: Judith Harrell RN) 0107 (See Alternative - Provider: Judith Harrell RN)0850 (See Alternative - Provider: Anjelica Parra RN)1512 (Given - Provider: Anjelica Parra RN)2012 (Given - Provider: Judith Harrell RN) 022 (Given - Provider: Judith Harrell RN)0821 (See Alternative - Provider: Ebenezer Masters RN) amino acids-protein hydrolysate (PRO SOURCE NOCARB) packet 60 mL 60 mL, feeding tube, 2 TIMES DAILY, First dose (after last modification) on Sat02/17/20 at 2100, Until Discontinued, Routine 0845 (Given - Provider: Anjelica Parra RN)2105 (Given - Provider: Judith Harrell RN) 0849 (Given - Provider: Anjelica Parra RN)2012 (Given - Provider: Judith Harrell RN) 0822 (Given - Provider: Ebenezer Masters RN) aspirin chewable tablet 81 mg 81 mg, oral, DAILY, First dose on Sat02/19/20 at 1400, Until Discontinued, Routine 0845 (Given - Provider: Anjelica Parra RN) 0850 (Given - Provider: Anjelica Parra RN) 0821 (Given - Provider: Ebenezer Masters RN) docusate (COLACE) liquid 100 mg 100 mg, oral, 2 TIMES DAILY, First dose on Sat02/17/20 at 2100, Until Discontinued, Routine 0845 (Given - Provider: Anjelica Parra RN)2102 (Given - Provider: Judith Harrell RN) 0850 (Given - Provider: Anjelica Parra RN)2012 (Given - Provider: Judith Harrell RN) 0810 (Hold - Provider: Ebenezer Masters RN - Reason: Order parameters not met - Comment: loose stools) enoxaparin (LOVENOX) injection 40 mg (CANCELED) 40 mg, subcutaneous, DAILY, First dose on Sat02/20/20 at 1200, Until Discontinued, Routine 0844 (Given - Provider: Anjelica Parra RN) enoxaparin (LOVENOX) injection 50 mg (COMPLETED) 50 mg, subcutaneous, NOW X1, 1 dose, On Sat02/29/20 at 1000, STAT 1100 (Given - Provider: Anjelica Parra RN) enoxaparin (LOVENOX) injection 90 mg 90 mg (rounded from 89 mg = 1 mg/kg ? 89 kg), subcutaneous, EVERY 12 HOURS, First dose (after last modification) on Sat03/01/20 at 0900, Until Discontinued, Routine 0851 (Given - Provider: Anjelica Parra RN)2012 (Given - Provider: Judith Harrell RN) 0822 (Given - Provider: Ebenezer Masters RN) insulin aspart U-100 (NOVOLOG FLEXPEN) injection subcutaneous, AT BEDTIME, First dose on Sat02/22/20 at 2100, Until Discontinued, Routine 210 (Not Given - Provider: Judith Harrell RN - Reason: Order parameters not met) 210 (Not Given - Provider: Judith Harrell RN - Reason: Order parameters not met) insulin aspart U-100 (NOVOLOG FLEXPEN) injection subcutaneous, 3 TIMES DAILY WITH MEALS, First dose (after last reorder) on Sat02/23/20 at 0800, Until Discontinued, Routine, Indications: SUPPLEMENTAL INSULIN 0824 (Not Given - Provider: Anjelica Parra RN - Reason: Order parameters not met)1141 (Not Given - Provider: Anjelica Parra RN - Reason: Order parameters not met)1649 (Not Given - Provider: Anjelica Parra RN - Reason: Order parameters not met) 1131 (Not Given - Provider: Anjelica Parra RN - Reason: Other - Comment: pt refused breakfast)1132 (Not Given - Provider: Anjelica Parra RN - Reason: Order parameters not met)1722 (Not Given - Provider: Anjelica Parra RN - Reason: Order parameters not met) 0822 (Hold - Provider: Ebenezer Masters RN - Reason: Order parameters not met)1101 (Hold - Provider: Ebenezer Masters RN - Reason: Order parameters not met) lisinopriL (PRINIVIL) tablet 20 mg 20 mg, oral, DAILY, First dose on Sat02/21/20 at 1645, Until Discontinued, Routine 0845 (Given - Provider: Anjelica Parra RN) 0850 (Given - Provider: Anjelica Parra RN) 0821 (Given - Provider: Ebenezer Masters RN) melatonin tablet 3 mg 3 mg, oral, AT BEDTIME, First dose on Sat02/19/20 at 2100, Until Discontinued, Routine 210 (Given - Provider: Judith Harrell RN) 2012 (Given - Provider: Judith Harrell RN) metoprolol (LOPRESSOR) tablet 25 mg 25 mg, oral, 2 TIMES DAILY, First dose (after last modification) on Sat02/26/20 at 1430, Until Discontinued, Routine 0845 (Given - Provider: Anjelica Parra RN)2103 (Given - Provider: Judith Harrell RN) 0850 (Given - Provider: Anjelica Parra RN)2011 (Given - Provider: Judith Harrell RN) 0821 (Given - Provider: Ebenezer Masters RN) Multivitamins with minerals + ferrous gluconate (CENTRUM) oral solution 15 mL 15 mL, feeding tube, DAILY, First dose on Sat02/16/20 at 1545, Until Discontinued, Routine 0846 (Given - Provider: Anjelica Parra RN) 0850 (Given - Provider: Anjelica Parra RN) 0823 (Given - Provider: Ebenezer Masters RN) nicotine (NICODERM CQ) 7 mg/24 hr patch 1 Patch 1 Patch, transdermal, EVERY 24 HOURS, First dose (after last modification) on Sat02/15/20 at 0900, Until Discontinued, Routine 1009 (Not Given - Provider: Anjelica Parra RN - Reason: Patient/family refused) 0852 (Not Given - Provider: Anjelica Parra RN - Reason: Patient/family refused) 0821 (Patch Applied - Provider: Ebenezer Masters RN)2100 (Due: Patch Removed - Provider: Ebenezer Masters RN) nutren 1.5 liquid 250 mL () 250 mL, per g tube, 4 TIMES DAILY, 28 doses, First dose on Sat02/22/20 at 2100, Last dose on Sat02/29/20 at 1700, Routine 0844 (Given - Provider: Anjelica Parra RN)1402 (Given - Provider: Anjelica Parra RN)1730 (Given - Provider: Anjelica Parra RN) pantoprazole (PROTONIX) tablet 40 mg 40 mg, oral, DAILY, First dose on Sat02/24/20 at 1100, Until Discontinued, Routine 0845 (Given - Provider: Anjelica Parra RN) 0850 (Given - Provider: Anjelica Parra RN) 0821 (Given - Provider: Ebenezer Masters, RN) phenylephrine-lidocain e 0.25 %-3 % (CO-PHENYLCAINE) topical solution 5 mL 5 mL, topical, Once (Without Time Specified), 1 dose, Starting on Sat02/16/20 at 1623, Until Sat03/02/20 at 1313, Routine QUEtiapine (SEROQUEL) tablet 25 mg 25 mg, oral, AT BEDTIME, First dose on Sat02/24/20 at 2100, Until Discontinued, Routine 2103 (Given - Provider: Judith Harrell RN) 2012 (Given - Provider: Judith Harrell RN) senna (SENOKOT) tablet 1 Tab 1 Tablet, oral, 2 TIMES DAILY, First dose on Sat02/18/20 at 0900, Until Discontinued, Routine 0845 (Given - Provider: Anjelica Parra RN)2103 (Given - Provider: Judith Harrell RN) 0850 (Given - Provider: Anjelica Parra RN)2011 (Given - Provider: Judith Harrell, [place]) 0811 (Hold - Provider: Ebenezer Mastres RN - Reason: Order parameters not met - Comment: loose stools) PRN Medication Order 02/29/2020 03/01/2020 03/02/2020 bisacodyL (DULCOLAX) suppository 10 mg 10 mg, rectal, EVERY 48 HOURS PRN, Starting on [place] 02/18/20 at 0000, Until Sat03/02/20 at 1313, Constipation, Routine calcium carbonate (TUMS) 200 mg calcium (500 mg) per chewable tablet tablet,chewable 1 Tab 1 Tablet, oral, 4 TIMES DAILY PRN, Starting on Sat02/24/20 at 1033, Until Sat03/02/20 at 1313, Heartburn, Routine 1205 (Given - Provider: Joy Schwartz RN) dextrose 50 % solution 12.5 g 12.5 g (25 mL), intravenous, PRN, Starting on Sat02/14/20 at 2028, Until Sat03/02/20 at 1313, Low Blood Sugar, Routine glucagon injection 1 mg 1 mg, intramuscular, PRN, Starting on Sat02/14/20 at 2028, Until Sat03/02/20 at 1313, Low blood sugar, Routine guaiFENesin tablet 200 mg 200 mg, oral, EVERY 6 HOURS PRN, Starting on Sat02/26/20 at 2340, Until Sat03/02/20 at 1313, Congestion, Cough, Routine hydrALAzine (APRESOLINE) 10 mg in sodium chloride (NS) 0.9 % 50 mL IVPB 10 mg, intravenous, Administer over 20 Minutes, EVERY 1 HOUR PRN, Starting on Sat02/23/20 at 0020, Until Sat03/02/20 at 1313, Routine HYDROmorphone (DILAUDID) tablet 2-4 mg 2-4 mg, oral, EVERY 4 HOURS PRN, Starting on Sat02/19/20 at 0548, Until Sat03/02/20 at 1313, Pain, for pain not controlled by acetaminophen; 2 for pain <5, 4 for pain>5, Routine 0253 (Given - Provider: Judith Harrell RN)1135 (Given - Provider: Anjelica Parra RN)1629 (Given - Provider: Anjelica Parra RN)2025 (Given - Provider: Judith Harrell, [place]) 0106 (Given - Provider: Judith Harrell RN)0550 (Given - Provider: Judith Harrell, [place])1827 (Given - Provider: Anjelica Parra RN) 0228 (Given - Provider: Judith Harrell, [place]) ondansetron (PF) (ZOFRAN) injection 4 mg 4 mg, intravenous, EVERY 4 HOURS PRN, Starting on Sat02/16/20 at 1103, Until Sat03/02/20 at 1313, Nausea, Routine papain-alpha amylase-cellulase (CLOG ZAPPER) 2-5 mL 2-5 mL, feeding tube, PRN, Starting on Sat02/16/20 at 2145, Until Sat03/02/20 at 1313, blocked feeding tube, Routine No Frequency Medication Order 02/29/2020 03/01/2020 03/02/2020 lidocaine (XYLOCAINE) 2 % viscous solution 1 dose, Starting on Sat02/16/20 at 2017, Until Sat03/02/20 at 1313 Linked Groups Order Group 1: acetaminophen (TYLENOL) tablet 1,000 mgJump to med 1,000 mg, oral, EVERY 6 HOURS, First dose (after last modification) on [facility] 02/18/20 at 1245, Until Discontinued, Routine Or acetaminophen (TYLENOL) solution unit dose cup 995 mgJump to med 995 mg (rounded from 1,000 mg), per ng tube, EVERY 6 HOURS, First dose (after last modification) on [facility] 02/18/20 at 1245, Until Discontinued, Routine Or acetaminophen (TYLENOL) suppository 975 mgJump to med 975 mg (rounded from 1,000 mg), rectal, EVERY 6 HOURS, First dose (after last modification) on [facility] 02/18/20 at 1245, Until Discontinued, Routine documented in this encounter Orders Medications Ordered That Babak ht Not Have Been Administered Count Last Ordered Date First Ordered Date enoxaparin (LOVENOX) injection 90 mg 2 04/2020 guaiFENesin tablet 200 mg 1 02/26/2020 metoprolol (LOPRESSOR) tablet 25 mg 1 02/25 hydrALAzine (APRESOLINE) 10 mg in sodium chloride (NS) 0.9 % 50 mL IVPB 3 02/23/2020 0 hydrALAzine (APRESOLINE) injection 10 mg 2 02/22/2020 insulin aspart U-100 (NOVOLO G FLEXPEN) injection 3 02/22/2020 labetaloL (TRANDATE) injection 20 mg 1 01/25 acetaminophen (TYLENOL) suppository 975 mg 1 02/18/2020 heparin injection 5,000 Units 1 02/18/2020 metoprolol (LOPRESSOR) 5 mg in sodium chloride (NS) 0.9 % 50 mL IVPB 1 02/18/2020 midazolam (PF) (VERSED) 1 mg/mL injection 1 02/18/2020 morphine injection 2 mg 2 02/18/202001/24 potassium chloride in water infusion 20 mEq 1 02/17/2020 sodium chloride 3 % infusion 3 02/17/2020 acetaminophen (TYLENOL) suppository 650 mg 1 02/16/2020 bupivacaine-EPINEPHrine (PF) 0.5 %-1:200,000 injection 1 02/16/2020 docusate sodium (COLACE) capsule 100 mg 1 0 02/16/2020 etomidate (AMIDATE) injection 49.2 mg 1 gelatin adsorbable 100 cm sponge 1 02/16/20 20 Gelatin Adsorbable powder 1 02/16/2020 HYDROmorphone (DILAUDID) tablet 2 mg 1 01/24 lidocaine (XYLOCAINE) 2 % viscous solution 1 02/16/2020 mannitol 25 % injection 2 02/16/2020 NORepinephrine (LEVOPHED) in D5W 32 mcg/ml 250 ml 8 mg/250 mL (32 mcg/mL) infusion solution 1 02/16/2020 pantoprazole (PROTONIX) tablet 40 mg 1 01/24 papain-alpha amylase-cellula se (CLOG ZAPPER) 2-5 mL 2 02/16/2020 peptamen 1.5 40 mL 1 02/16/2020 phenylephrine-lidocaine 0.25 %-3 % (CO-PHENYLCAINE) topical solution 5 mL 1 02/16/2020 propOFol (DIPRIVAN) 10 mg/mL injection 1 rocuronium (ZEMURON) 10 mg/mL injection 1 0 02/16/2020 rocuronium (ZEMURON) injection 49.2 mg 1 sodium chloride 0.9 % 1,000 mL with bacitracin 50,000 Units irrigation 1 02/16/2020 sodium chloride 0.9 % BOLUS 500 mL 2 2019 Thrombin (Bovine) 5,000 unit topical solution 1 02/16/2020 iohexoL (OMNIPAQUE 350) solution 100 mL 1 0 02/15/2020 ondansetron (PF) (ZOFRAN) 4 mg/2 mL injection 1 02/15/2020 prochlorperazine edisylate ( COMPAZINE) 10 mg/2 mL (5 mg/mL) injection 1 02/15/2020 dextrose 50 % solution 12.5 g 1 02/14/2020 fentaNYL citrate (PF) injection 100 mcg 1 0 02/14/2020 glucagon injection 1 mg 1 02/14/2020 labetaloL (TRANDATE) 10 mg i n dextrose 5% (D5W) 50 mL IVPB 1 02/14/2020 nicotine (NICODERM CQ) 7 mg/ 24 hr patch 1 Patch 1 02/14/2020 Nursing Count Last Ordered Date First Orde red Date ACTIVITY INSTRUCTIONS 1 03/02/2020 DRIVING INSTRUCTIONS 1 03/02/2020 WOUND CARE INSTRUCTIONS 1 03/02/2020 REYES CATHETER - DISCONTINUE 1 02/24/2020 NOTIFY ASSESSMENT SPECIALIST 1 02/22/2020 CHECK HEMOVAC DRAIN 1 02/19/2020 NURSING COMMUNICATION 2 02/18/20202019 REMOVE ARTERIAL LINE 1 02/17/2020 CONTRAINDICATION TO ANTICOAG ULATION THERAPY 1 02/16/2020 INSERT SMALL BORE FEEDING TUBE 1 02/16/2020 INTAKE AND OUTPUT 1 02/16/2020 MERCHANDISING CONSULTANT,CLASS II 2 02/16/2020 0 02/14/2020 VTE PHARMACOLOGIC PROPHYLAXI S CURRENTLY ORDERED OR ON ALTERNATIVE THER 1 02/14/2020 Consult Count Last Ordered Date First Orde red Date CONSULT NUTRITION 2 02/16/2020 PT Count Last Ordered Date First Orde red Date PT EVALUATION AND TREAT 1 02/14/2020 Respiratory Care Count Last Ordered Date First Ordered Date RESPIRATORY CARE EVALUATION ONLY 12 02/21/20 20 02/14/2020 EXTUBATION 1 02/19/2020 IV Count Last Ordered Date First Orde red Date IV REQUEST 6 02/25/2020 02/16/2020 Admission Count Last Ordered Date First Orde red Date ADMIT TO INPATIENT 1 02/14/2020 Transfer Count Last Ordered Date First Orde red Date TRANSFER PATIENT 1 02/22/2020 ED BED REQUEST 1 02/14/2020 Discharge Count Last Ordered Date First Orde red Date DISCHARGE PATIENT 1 03/02/2020 Legal Count Last Ordered Date First Orde red Date MISCELLANEOUS DISCHARGE INSTRUCTIONS 3 06/2020 ADT Patient Update Count Last Ordered Date Firs t Ordered Date UPDATE PATIENT STATUS 1 02/17/2020 documented in this encounter Care Teams Cap Sizer Relationship Specialty Start Date End Date Alejandrina Carrillo PA-C [address] [place] [address] PCP - General 04/07/19 07/05/20 documented as of this encounter
--- OUTSIDE RECORDS SUMMARY | 2024-12-03 16:04 | XMS_ITS | Encounter Summary ---
Author Organization [facility] Address [address] [place] [address] Care Team Providers Care Territory Sales Manager Name Role Phone Alejandrina Carrillo PA-C Primary Care Provider [phone]- [phone] Reason for Visit * Auth/Cert Specialty Diagnoses / Procedures Referred By Mitch pruett Referred To Contact Diagnoses Cerebral venous thrombosis Cerebral venous sinus thrombosis ICB Referral ID Status Reason Start Date Expiration Date Visits Re quested Visits Authorized [id number] 1 1 Encounter Details Date Type Department Care Team (Late st Contact Info) Description 02/16/2020 10:38 EDT Anesthesia Event [facility] [place] [address] [place], [place] [address] Greg Genao MD [address] [place] [phone] Haile Nials CRNA [address] [facility], [facility] [address] [place] [phone] Anesthesia Record Procedure Summary Procedure Name Responsible Anesthesiologist Anesthesia Start Time Anesthesia Stop Time CRANIECTOMY/CRANIOT KATHY, EXPLORATORY;SUPRATE NTORIAL (Left) Greg Genao MD 02/16/20 1038 02/16/20 1414 Events Date Time Event Comment 02/16/2020 1038 An Start The patient was re-evaluated immediately before moderate or deep sedation use, before anesthesia induction, or before the anesthesia procedure. 1038 An Start Data 1045 An Induction The patient was reevaluated immediately before moderate or deep sedation use and before anesthesia induction. 1051 An Intubation 1121 Anesthesia Ready 1246 Primary Handoff Primary Anes thesia Provider relieved. Anesthesia care handoff involved joint review of the surgical site and planned procedure, significant past medical history, intraoperative course including but not limited to airway management, anesthetic maintenance, monitors, IV access, fluid management, and postoperative plan. 1352 an stop data 1413 Handoff to RN I completed my handoff to the receiving nurse during which we: 1. Identified the patient 2. Identified the responsible provider 3. Reviewed the pertinent medical history 4. Discussed the surgical course 5. Reviewed intra-op anesthesia management and issues during anesthesia 6. Set expectations for post-procedure period 7. Allowed opportunity for questions and acknowledgement of understanding. 1414 An Stop Meds Name Total fentanyl citrate (PF) injection 200 mcg lidocaine injection 2 % 100 mg propOFol (DIPRIVAN) injection 300 mg sugammadex (BRIDION) injection 100 mg/mL 200 mg niCARdipine (CARDENE) 25 mg in sodium chloride (NS) 0.9 % 250 mL peripheral infusion 10.92 mg propofol (DIPRIVAN) 500 mg in 50 mL infu maya 1,618,680 mcg remifentaniL (ULTIVA) 2 mg 1,526.18 mcg remifentanil (ULTIVA) injection 120 mcg sodium chloride 3 % infusion 73.33 mL vecuronium (NORCURON) injection 10 mg 4 mg levETIRAcetam (KEPPRA) 500 mg in sodium chloride (NS) 0.9 % 100 mL IVPB 500 mg ceFAZolin (ANCEF) injection 2,000 mg acetaminophen (OFIRMEV) IV 10 mg/ml solu tion 1,000 mg lactated ringers (LR) infusion 1,200 mL lactated ringers (LR) infusion 300 mL mannitol infusion 20 % 250 mL * Agents Name O2 N2O Air * Blood No blood administrations on file. Lines, Drains, and Airways Type Details Placement Removal Wound 02/18/20; 22102/16/20 1133 by Yudi Prado RN 02/18/20 221 by Clarence Aquino, AZALEA Urethral Catheter 02/14/20; 1999 (prio r to admission to SICU); 02/24/20; 0943 02/14/201999 by Aletha Renner RN 02/24/20 0943 by Amy Bhatti RN Peripheral IV 02/14/20; 2245; B Br aun Introcan; Right; Hand; Inserted by RN; 1; None; Chlorhexidine; 02/18/20; 0822; Painful, Leaking; No complications 02/14/20 2245 by Eneida Lopez RN 02/18/20 0822 by Ritika Mann RN Wound 02/16/20; Incision; Left, Lateral; Head; Surgical incision for left decompressive craniectomy; N; 03/07/22; 1243 02/16/20 0000 by Yudi Prado RN 03/07/22 1243 by Adriana Chaudhary RN Peripheral IV 02/16/20; 0918; 01/25 12/14; B Hernandez Introcan; Left, Lateral, Distal; Forearm; cephalic; Inserted by RN; 1; None; 2% Chlorhexidine with IPA; 02/18/20; 0952; Leaking; No complications 02/16/20 0918 by Uzma Tucker RN 02/18/20 0952 by Ritika Mann RN Arterial Catheter 02/16/20; 1120 (crea ava via procedure documentation); 02/17/20; 0652; Per order; No complications, Pressure held minimum of 5 min., Pressure dressing applied 02/16/20 1120 by Ying Luna MD 02/17/20 0652 by Gayla Dover RN Peripheral IV 02/16/20; 1120 (crea ava via procedure documentation); saphenous; 02/16/20; 1800; Removing documentation only, patient arrived without 02/16/20 1120 by Trish Feng MD 02/16/20 1800 by Gayla Dover RN Non-Surgical Airway 02/16/20; 1212 (crea ava via procedure documentation); In surgery; [employer] ETT - cuffed; 7.5; 02/19/20; 0646; End of therapy 02/16/20 1212 by Ying Luna MD 02/19/20 0646 by Cathryn King RT Closed/Suction Drain 02/16/20; 1254; In OR by MD; 1; Left; Scalp; 02/19/20 (removed by ); 0740 02/16/20 1254 by Yudi Prado RN 02/19/20 0740 by Ritika Mann RN documented in this encounter Social History [...] 14:29 EDT documented as of this encounter OR Notes * Anesthesia Postprocedure Evaluation - Shawn Pedro MD - 02/16/2020 1414 EDT Patient: Ynes Lim Vitals Vital signs were reviewed with the recovery nurse and are available in the Epic flowsheets. Last Pain Score - Numeric Pain Level (Scale 1-10): 0 Type of Anesthesia - general Anesthesia Post Evaluation Post-procedure vitals reviewed and are stable. Level of consciousness: sedated and responsive/arousable to painful stimuli Temperature status: normothermia and patient returned to pre-procedure baseline Respiratory status: stable and ventilator Cardiovascular status: stable and appropriate for condition Hydration status: adequate Nausea/Vomiting: none Pain management: adequate Post-Op Assessment: patient tolerated procedure well with no complications Patient participation: unable to participate due to sedation Disposition: inpatient Anesthesia Complications: No apparent anesthesia complications * Anesthesia Procedure Notes - Ying Luna MD - 02/16/2020 1223 EDT Associated Order(s): Peripheral IV Placement Peripheral IV Placement Date/Time: 02/16/2020 11:20 Inserted by: Trish Feng MD Placement Needle size: 16 G Laterality: left Location: saphenous Local anesthetic: none Site prep: alcohol Attempts: 1 * Anesthesia Procedure Notes - Ying Lnua MD - 02/16/2020 1222 EDT Associated Order(s): Arterial Line Placement Arterial Line Placement Date/Time: 02/16/2020 11:20 Staffing Resident/PERMIT TECHNICIAN: Ying Luna MD Performed: resident/PERMIT TECHNICIAN/AA Location: right radial Sedation: Patient sedated: yes Sedation type: general anesthesia Needle gauge: 20 Seldinger technique: Seldinger technique used Number of attempts: 3 Ultrasound Guided? noPost-procedure: line sutured and dressing applied Patient tolerance: Patient tolerated the procedure well with no immediate complications * Anesthesia Procedure Notes - Ying Luna MD - 02/16/2020 1212 EDT Associated Order(s): Airway Airway Date/Time: 02/16/2020 10:51 Urgency: elective Airway not difficult General Information and Staff Patient location during procedure: OR Anesthesiologist: Trish Feng MD Performed: anesthesiologist Indications and Patient Condition Indications for airway management: anesthesia Sedation level: GA Preoxygenated: yes Patient position: sniffing Ventilation assessment: 1 - Easy Final Airway Details Final airway type: endotracheal airway Successful airway: ETT Cuffed: yes Successful intubation technique: video laryngoscopy Bennett Facilitating devices/methods: intubating stylet Endotracheal tube insertion site: oral Blade: Paula Blade size: #3 ETT size (mm): 7.5 Cormack-Lehane Classification: grade I - full view of glottis Placement verified by: chest auscultation and capnometry Measured from: teeth Number of attempts at approach: 1 * Anesthesia Preprocedure Evaluation - Trish Feng MD - 02/16/2020 0818 EDT Anesthesia Preprocedure Evaluation Patient Medical History, including Anesthesia History reviewed. Chart and Nursing Notes reviewed, including NPO status and Medication History. Paper consent obtained via phone from beatriz Aleman. Given to Laura Feng. As per Neurosx resident: 50F with tobacco use, cerebral venous thrombosis and intraparenchymal hemorrhage in left frontotemporal area. ??Admitted to Neuro for close monitoring and heparin drip. Initial head??CT at therapeutic dose was stable, but repeat head CT this AM demonstrating enlarged hemorrhage with coinciding decreased right sided movement this AM. ?? Plan for left frontal craniectomy, heparin gtt is stopped, will get protamine for reversal, 500cc 3% bolus now x1, goal Na >140, Nicardipine drip to maintain systolic blood pressures below 140. ?? Is Alert, Aphasic, minimally verbal, unclear responses,Follows commands??on left side after demonstration; not following on the right. Extraocular movements intact, Pupils equal, round, reactive, Face symmetric, Tongue midline, Right upper and lower extremities with less spontaneous movement, withdraws but not briskly. ?? As per RN note drowsy, tylenol given with applesauce 22:13. ?? CT head 02/13 - large left posterior temporal ICH extending superiorly into frontal and parietal operculum. No herniation. No hydrocephalus. CTV 02/13 - occlusion of left transverse sinus and sigmoid sinus, with clot extending down into proximal left IJ. Occlusion of multiple left temporal cortical veins ?? EKG 02/15/20: SINUS RHYTHM @ 68 WITH MARKED SINUS ARRHYTHMIA LOW QRS VOLTAGE IN PRECORDIAL LEADS NONSPECIFIC ST & T-WAVE ABNORMALITY ?? ECHO 02/15/20: ?Left Ventricle: Left ventricular systolic function was normal with an ejection fraction of 55-60%. ?Left Ventricle: Left ventricular wall motion was normal; there were no regional wall motion abnormalities. ?Left Ventricle: Left ventricular diastolic parameters were normal. ?Right Ventricle: Right ventricular systolic function was normal. ?Left Atrium: No evidence of right to left shunt with agitated saline study. ?? US ABDOMEN 02/15/20: 1. There is a 1.5 cm circumscribed anechoic lesion in the left hepatic lobe, consistent with a simple hepatic cyst. The smaller lesions seen on CT were not well evaluated on ultrasound. There are no concerning hepatic lesions. 2. Mild hepatic steatosis and borderline hepatomegaly. ?? CT CHEST 02/15/20: 1. Segmental right upper lobe acute pulmonary embolism. 2. 1.3 cm low-density lesion lateral segment left lobe of the right. Liver ultrasound is recommended for further evaluation. 3. Mosaic lung attenuation likely reflects the presence of airways disease. 4. Subpleural regions of atelectasis bilaterally. 5. Calcified right lower lobe granuloma. Additional ROS/History Findings: Allergies Allergen Reactions ??? Citalopram Other reaction(s): increased anxiety ??? Duloxetine Other reaction(s): increased anxiety ??? Pregabalin Other reaction(s): dizziness ??? Zolpidem Other reaction(s): sleep walking with over 5 mg Review of Systems History reviewed. No pertinent past medical history. Relevant Problems CARDIOVASCULAR (+) Cerebral venous sinus thrombosis (+) Cerebral venous thrombosis Physical Exam Airway Mallampati: II TM distance: >3 FB Neck ROM: full Cardiovascular Rhythm: regular Dental - normal exam Pulmonary - normal exam Abdominal Anesthesia Plan ASA 3 - emergent Anesthesia Type - general, to include intravenous induction. Anesthesia Plan Details to include - arterial line. Plan/risks discussed with: friend, emergency contact, Ever Linda. Specific risks discussed were bleeding, nausea, headache, ICU placement and post-op intubation (aspiration). Paper consent obtained via phone PAT Note (Notes from 01/17/20 through 02/16/20) No notes of this type exist for this encounter. documented in this encounter Plan of Treatment Upcoming Encounters Date Type Department Care Team (Late st Contact Info) Description 03/04/2025 14:00 EDT Telemedicine [facility] [address] [address] Brayan Polk MD [address] [place] [address] [place] [phone] 07/14/2025 14:30 EDT Office Visit [facility] Hematology & Oncology - [address] [address] Evin Maria MD [address] [place] [address], [facility], [address] [place] [phone] documented as of this encounter Procedures Procedure Name Priority Date/Time Associated Diagnosis Comments ANESTHESIA PERIPHERAL IV PLACEMENT Routine 02/16/2020 12:23 EDT ANESTHESIA ARTERIAL LINE PLACEMENT Routine 02/16/2020 12:22 EDT ANESTHESIA INTUBATION Routine 02/16/2020 12:12 EDT documented in this encounter Results * Peripheral IV Placement (02/16/2020 12:23 EDT) Narrative Ying Luna MD - 02/16/2020 12:23 EDT Ying Luna MD ? 02/16/2020 12:24 Peripheral IV Placement Date/Time: 02/16/2020 11:20 Inserted by: Trish Feng MD Placement Needle size: 16 G Laterality: left Location: saphenous Local anesthetic: none Site prep: alcohol Attempts: 1 Trish Feng MD ANESTHESIA ORDERABLES Final Result * Arterial Line Placement (02/16/2020 12:22 EDT) Narrative Ying Luna MD - 02/16/2020 12:22 EDT Ying Luna MD ? 02/16/2020 12:23 Arterial Line Placement Date/Time: 02/16/2020 11:20 Staffing Resident/PERMIT TECHNICIAN: Ying Luna MD Performed: resident/PERMIT TECHNICIAN/AA Location: right radial Sedation: Patient sedated: yes Sedation type: general anesthesia Needle gauge: 20 Seldinger technique: Seldinger technique used Number of attempts: 3 Ultrasound Guided? noPost-procedure: line sutured and dressing applied Patient tolerance: Patient tolerated the procedure well with no immediate complications Trish Feng MD ANESTHESIA ORDERABLES Final Result * SD AN ELECTIVE ENDOTRACHEAL AIRWAY (02/16/2020 12:12 EDT) Narrative Ying Luna MD - 02/16/2020 12:12 EDT Ying Luna MD ? 02/16/2020 12:12 Airway Date/Time: 02/16/2020 10:51 Urgency: elective Airway not difficult General Information and Staff Patient location during procedure: OR Anesthesiologist: Trish Feng MD Performed: anesthesiologist Indications and Patient Condition Indications for airway management: anesthesia Sedation level: GA Preoxygenated: yes Patient position: sniffing Ventilation assessment: 1 - Easy Final Airway Details Final airway type: endotracheal airway Successful airway: ETT Cuffed: yes Successful intubation technique: video laryngoscopy Bennett Facilitating devices/methods: intubating stylet Endotracheal tube insertion site: oral Blade: Paula Blade size: #3 ETT size (mm): 7.5 Cormack-Lehane Classification: grade I - full view of glottis Placement verified by: chest auscultation and capnometry Measured from: teeth Number of attempts at approach: 1 Trish Willowhayden Feng MD ANESTHESIA ORDERABLES Final Result documented in this encounter Visit Diagnoses Not on filedocumented in this encounter Administered Medications Inactive Administered Medications - up to 3 most recent administrations Medication Order MAR Action Action Date Dose Rate Site acetaminophen (OFIRMEV) IV solution PRN, Starting on Sat02/16/20 at 1254, Until Sat02/16/20 at 1414, Routine, Anesthesia Intraprocedure Given 02/16/2020 12:54 EDT 1,000 mg ceFAZolin (ANCEF) injection PRN, Starting on Sat02/16/20 at 1115, Until Sat02/16/20 at 1414, Routine, Anesthesia Intraprocedure Given 02/16/2020 11:15 EDT 2,000 mg fentaNYL citrate (PF) injection intravenous, PRN, Starting on Sat02/16/20 at 1320, Until 02/16/20 at 1414, Routine, Anesthesia Intraprocedure Given 02/16/2020 13:38 EDT 100 mcg Given 02/16/2020 13:20 EDT 100 mcg lactated ringers (LR) infusion FA IP EQF CONTINUOUS PRN FOR ONE STEP MEDS, Starting on e 02/16/20 at 1038, Until e 02/16/20 at 1414, Routine, Anesthesia Intraprocedure New Bag 02/16/2020 12:46 EDT New Bag 02/16/2020 10:38 EDT lactated ringers (LR) infusion FA IP EQF CONTINUOUS PRN FOR ONE STEP MEDS, Starting on Sat02/16/20 at 1105, Until Sat02/16/20 at 1414, Routine, Anesthesia Intraprocedure New Bag 02/16/2020 11:05 EDT levETIRAcetam (KEPPRA) 500 mg in sodium chloride (NS) 0.9 % 100 mL IVPB 500 mg, intravenous, Administer over 15 Minutes, EVERY 12 HOURS, 14 doses, First dose on Sat02/16/20 at 1130, Last dose on Sat02/22/20 at 2100, Routine, Release Given 02/19/2020 20:01 EDT 500 mg Given 02/19/2020 8:46 EDT 500 mg Given 02/18/2020 21:14 EDT 500 mg lidocaine 20 mg/mL (2 %) injection other, PRN, Starting on Sat02/16/20 at 1046, Until Sat02/16/20 at 1414, Routine, Anesthesia Intraprocedure Given 02/16/2020 10:46 EDT 100 mg mannitol 20 % infusion intravenous, Administer over 60 Minutes, FA IP EQF CONTINUOUS PRN FOR ONE STEP MEDS, Starting on Sat02/16/20 at 1206, Until Sat02/16/20 at 1414, Routine, Anesthesia Intraprocedure New Bag 02/16/2020 12:06 EDT niCARdipine (CARDENE) 25 mg in sodium chloride (NS) 0.9 % 250 mL peripheral infusion 2.5-15 mg/hr (25-150 mL/hr), intravenous, CONTINUOUS, Starting on Sat02/16/20 at 0445, Until Sat02/17/20 at 1443, Routine Rate Change 02/17/2020 1:24 EDT 2.5 mg/hr 25 mL/hr Rate Change 02/17/2020 1:01 EDT 5 mg/hr 50 mL/hr Rate Documented 02/17/2020 1:00 EDT 7.5 mg/hr 75 mL/hr propofol (DIPRIVAN) 500 mg in 50 mL infusion FA IP EQF CONTINUOUS PRN FOR ONE STEP MEDS, Starting on Sat02/16/20 at 1051, Until Sat02/16/20 at 1414, Routine, Anesthesia Intraprocedure Rate Change 02/16/2020 13:38 EDT 80 mcg/kg/min 47.2 mL/hr Rate Change 02/16/2020 13:28 EDT 60 mcg/kg/min 35.4 mL/hr Rate Change 02/16/2020 11:57 EDT 80 mcg/kg/min 47.2 mL/hr propOFol (DIPRIVAN) injection intravenous, PRN, Starting on e 02/16/20 at 1045, Until 02/16/20 at 1414, Routine, Anesthesia Intraprocedure Given 02/16/2020 13:59 EDT 50 mg Given 02/16/2020 13:38 EDT 50 mg Given 02/16/2020 10:55 EDT 120 mg remifentaniL (ULTIVA) 2 mg FA IP EQF CONTINUOUS PRN FOR ONE STEP MEDS, Starting on e 02/16/20 at 1045, Until 02/16/20 at 1414, Anesthesia Intraprocedure Rate Change 02/16/2020 13:20 EDT 0.05 mcg/kg/min 14.8 mL/hr Rate Change 02/16/2020 11:12 EDT 0.1 mcg/kg/min 29.5 mL/hr New Bag 02/16/2020 10:45 EDT 0.08 mcg/kg/min 23.6 mL/hr remifentaniL (ULTIVA) injection PRN, Starting on e 02/16/20 at 1045, Until 02/16/20 at 1414, Routine, Anesthesia Intraprocedure Given 02/16/2020 10:55 EDT 80 mcg Given 02/16/2020 10:45 EDT 40 mcg sodium chloride 3 % infusion FA IP EQF CONTINUOUS PRN FOR ONE STEP MEDS, Starting on Sat02/16/20 at 1038, Until 02/16/20 at 1414, STAT, Anesthesia Intraprocedure New Bag 02/16/2020 10:38 EDT 50 mL/hr 5 0 mL/hr sugammadex (BRIDION) injection intravenous, PRN, Starting on e 02/16/20 at 1331, Until 02/16/20 at 1414, Routine, Anesthesia Intraprocedure Given 02/16/2020 13:31 EDT 200 mg vecuronium (NORCURON) injection PRN, Starting on e 02/16/20 at 1228, Until 02/16/20 at 1414, Routine, Anesthesia Intraprocedure Given 02/16/2020 12:28 EDT 4 mg documented in this encounter Care Teams Territory Sales Manager Relationship Specialty Start Date End Date Alejandrina Carrillo PA-C [address] [place] [address] PCP - General 04/07/19 07/05/20 documented as of this encounter
--- OUTSIDE RECORDS SUMMARY | 2024-12-03 16:06 | XMS_ITS | Encounter Summary ---
Author Organization [facility] Address [address] [place] [address] Care Team Providers Care Transaction Coordinator Name Role Phone Alejandrina Carrillo PA-C Primary Care Provider +1- [phone] Romario Hairston MD Primary Care Provider +1- [phone] Encounter Details Date Type Department Care Team (Late st Contact Info) Description 02/14/2020 Results Only Imaging [facility] [address] [place] [address] Sherman Ponce MD [address] [place] [phone] Social History Tobacco Use Types Packs/Day Years Used Date Smoking Tobacco: Never Assessed Comments Unknown Sex and Gender Information Value [...] 14:00 EDT Telemedicine [facility] [address] [place] [address] Brayan Polk MD [address] [place] [address] [address] [place] [address] 07/14/2025 14:30 EDT Office Visit [facility] Hematology & Oncology - [facility] [address] [place] [address] Evin Maria MD [address] [facility], [address] [place] [phone] Pending Results Name Type Priority Associated Diagnoses Date /Time EKG 12-LEAD ECG 02/14/2020 14 :37 EDT documented as of this encounter Procedures Procedure Name Priority Date/Time Associated Diagnosis Comments EKG 12-LEAD 02/14/2020 14:37 EDT Procedure Note - 02/14/2020 14:37 EDTThis note is in progress. 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: ЮЛИЯ : 1970 Requested By: Order Number: Reading MD: Measurements Intervals Arabi Rate: 86 P: 54 ME: 128 QRS: 10 QRSD: 76 T: 6 QT: 382 QTc: 457 Interpretive Statements Normal sinus rhythm Low voltage QRS Borderline ECG No previous ECG available for comparison [email or web address] documented in this encounter Visit Diagnoses Not on filedocumented in this encounter Additional Health Concerns Infection Onset Date Last Indicated Resolved Time R/O COVID-19 Comment:Negative result 03/07/2022 03/07/2022 03/07/2022 9:37 EDT R/O COVID-19 01/28/2024 01/28/2024 01/29/2024 0:27 EST documented as of this encounter Care Teams Transaction Coordinator Relationship Specialty Start Date End Date Alejandrina Carrillo PA-C [address] [place] [address] PCP - General 04/07/19 07/05/20 Romario Hairston MD [address] [place] [address] PCP - General 07/06/20 documented as of this encounter
--- OUTSIDE RECORDS SUMMARY | 2024-12-03 16:06 | XMS_ITS | Encounter Summary ---
Author Organization [facility] Address [address] [place] [address] Care Team Providers Care Master Black Belt Name Role Phone Alejandrina Carrillo PA-C Primary Care Provider [phone]- [phone] Encounter Details Date Type Department Care Team (Latest Contact Info) Description 02/12/2020 Travel Social History Tobacco Use Types Packs/Day [...] have Coronavirus / COVID-19? No / Unsure 02/12/2020 13:21 EDT documented as of this encounter Plan of Treatment Upcoming Encounters Date Type Department Care Team (Late st Contact Info) Description 03/04/2025 14:00 EDT [facility] Neurology Clinic [address] [place] [address] Brayan Polk MD 130 [facility] [address] [place] [address] 07/14/2025 14:30 EDT Office Visit [facility] Cancer Center Hematology & Oncology - [address] [address] Evin Maria MD 111 [facility], Level 2 [place] [address] documented as of this encounter Visit Diagnoses Not on filedocumented in this encounter Care Teams Master Black Belt Relationship Specialty Start Date End Date Alejandrina Carrillo PA-C [address] [place] [address] PCP - General 04/07/19 07/05/20 documented as of this encounter
--- OUTSIDE RECORDS SUMMARY | 2024-12-03 16:06 | XMS_ITS | Encounter Summary ---
Author Organization [facility] Address [address] [place] [address] Care Team Providers Care Field Cane Scale Clerk Name Role Phone Alejandrina Carrillo PA-C Primary Care Provider +1- [phone] Romario Hairston MD Primary Care Provider [phone]- [phone] Encounter Details Date Type Department Care Team (Late st Contact Info) Description 11/17/2019 Results Only Imaging [facility] Radiology Results [address] [place] [address] Derrick Gaytan MD [address] [place] [address] Social History Tobacco Use Types Packs/Day Years Used Date Smoking Tobacco: Every Day Smokeless Tobacco: Never Alcohol Use Standard Drinks/Week Comments Yes 0 (1 standard drink = 0.6 oz pur e alcohol) Comments Unknown Sex and Gender Information Value Date Recorded Sex Assigned at Not on file Legal Sex Female 17:42 EST Gender Identity Female 03/18/2020 17:54 EDT Sexual Orientation Not on file documented as of this encounter Plan of Treatment Upcoming Encounters Date Type Department Care Team (Late st Contact Info) Description 03/04/2025 14:00 EDT Telemedicine [facility] Neurology Clinic [address] [place] [address] Brayan Polk MD [address] [place] [address] [address] [place] [address] 07/14/2025 14:30 EDT Office Visit [facility] Cancer Center Hematology & Oncology - [address] [place] [address] [place] [address] Evin Maria MD 111 [facility], Level 2 [place] [address] documented as of this encounter Procedures Procedure Name Priority Date/Time Associated Diagnosis Comments US EXTREMITY 11/17/2019 13:59 EST documented in this encounter Results * US EXTREMITY (11/17/2019 13:59 EST) Anatomical Region Laterality Modality Other 11/17/2019 13:5 9 EST Narrative 11/17/2019 13:59 EST ? EXAM: ULTRASOUND/DOPPLER VEIN LOWER EXT. ??EX. D/ (1332) ? CLINICAL INFORMATION: ? PRL - Pain right lower extr. ? PROCEDURE INFORMATION: ? Exam: US Duplex Right Lower Extremity Veins, Limited ? Exam date and time: 11/17/2019 12:20 PM ? Age: 49 years old ? Clinical indication: Pain; Leg, lower; Right; Additional info: ? Prl - pain right lower extr. , Smoker on estrogen, swolln ? painful leg, + cords ? TECHNIQUE: ? Imaging protocol: Real-time Duplex ultrasound of the Right Lower ? Extremity with 2-D benitez scale, color Doppler flow and spectral ? waveform analysis with image documentation. Limited exam was ? focused on the right lower extremity veins. ? COMPARISON: ? No relevant prior studies available. ? FINDINGS: ? Right deep veins: Unremarkable. The common femoral, femoral, ? proximal profunda femoral and popliteal veins are patent without ? thrombus. Normal Doppler waveforms. Normal compressibility ? and/or augmentation response. ? Right superficial veins: There is nonocclusive thrombus in the ? mid to distal greater saphenous vein, indicating superficial ? thrombophlebitis. ? Soft tissues: Unremarkable. ? IMPRESSION: ? 1. No deep venous thrombus demonstrated in the right lower ? extremity. ? 2. Superficial thrombophlebitis of the greater saphenous vein. ? REPORT SIGNED IN OTHER VENDOR SYSTEM 11/17/2019 ?Reported By: Shawn Lugo MD ? CC: ? Transcribed Date/Time: 11/17/2019 (8978) ? Ethnic Origins Teacher: [employer] ? Printed Date/Time: 11/17/2019 (8080) ? PAGE 1 ? Signed Report ? Procedure Note Shawn Lugo MD - 11/17/2019 EXAM: ULTRASOUND/DOPPLER VEIN LOWER EXT. EX. D/ (1332) CLINICAL INFORMATION: PRL - Pain right lower extr. PROCEDURE INFORMATION: Exam: US Duplex Right Lower Extremity Veins, Limited Exam date and time: 11/17/2019 12:20 PM Age: 49 years old Clinical indication: Pain; Leg, lower; Right; Additional info: Prl - pain right lower extr. , Smoker on estrogen, swolln painful leg, + cords TECHNIQUE: Imaging protocol: Real-time Duplex ultrasound of the Right Lower Extremity with 2-D benitez scale, color Doppler flow and spectral waveform analysis with image documentation. Limited exam was focused on the right lower extremity veins. COMPARISON: No relevant prior studies available. FINDINGS: Right deep veins: Unremarkable. The common femoral, femoral, proximal profunda femoral and popliteal veins are patent without thrombus. Normal Doppler waveforms. Normal compressibility and/or augmentation response. Right superficial veins: There is nonocclusive thrombus in the mid to distal greater saphenous vein, indicating superficial thrombophlebitis. Soft tissues: Unremarkable. IMPRESSION: 1. No deep venous thrombus demonstrated in the right lower extremity. 2. Superficial thrombophlebitis of the greater saphenous vein. REPORT SIGNED IN OTHER VENDOR SYSTEM 11/17/2019 Reported By: Shawn Lugo MD CC: Transcribed Date/Time: 11/17/2019 (9333) Ethnic Origins Teacher: Printed Date/Time: 11/17/2019 (2175) PAGE 1 Signed Report us Derrick Gaytan MD [facility] ORDERABLES Final R esult documented in this encounter Visit Diagnoses Not on filedocumented in this encounter Additional Health Concerns Infection Onset Date Last Indicated Resolved Time R/O COVID-19 Comment:Negative result 03/07/2022 03/07/2022 03/07/2022 9:37 EDT R/O COVID-19 01/28/2024 01/28/2024 01/29/2024 0:27 EST documented as of this encounter Care Teams Field Cane Scale Clerk Relationship Specialty Start Date End Date Alejandrina Carrillo PA-C [address] [place] [address] PCP - General 04/07/19 07/05/20 Romario Hairston MD [address] [place] [address] PCP - General 07/06/20 documented as of this encounter
--- OUTSIDE RECORDS SUMMARY | 2024-12-03 16:06 | XMS_ITS | Encounter Summary ---
Author Organization [facility] Address [address] [place] [address] Care Team Providers Care Construction Project Manager Name Role Phone Marci Nolasco MD Primary Care Provider [phone] Alejandrina Carrillo PA-C Primary Care Provider [phone] Encounter Details Date Type Department Care Team (Late st Contact Info) Description 02/02/2019 Historical Results Only [facility] Radiology Results [address] [place], [place] [phone] Damon Sanches MD [address] [facility] [address] [place], [place] [phone] Social History Tobacco Use Types Packs/Day Years [...] Telemedicine [facility] Neurology Clinic [address] [place] [address] Brayan Polk MD 130 [facility] [address] [place] [address] 07/14/2025 14:30 EDT Office Visit [facility] Cancer Center Hematology & Oncology - [facility] [address] [place], [place] [phone] Evin Maria MD 111 [facility], [address] 2 [place] [phone] documented as of this encounter Visit Diagnoses Not on filedocumented in this encounter Care Teams Construction Project Manager Relationship Specialty Start Date End Date Marci Nolasco MD [address] [place] [phone] PCP - General 06/10/09 04/06/19 Alejandrina Carrillo PA-C [address] [place] [address] PCP - General 04/07/19 07/05/20 documented as of this encounter
--- OUTSIDE RECORDS SUMMARY | 2024-12-03 16:06 | XMS_ITS | Encounter Summary ---
Author Organization [facility] Address [address] [place] [address] Care Team Providers Care Liquid Sugar Melter Name Role Phone Alejandrina Carrillo PA-C Primary Care Provider [phone]- [phone] Encounter Details Date Type Department Care Team (Late st Contact Info) Description 04/09/2019 Orders Only [facility] Dermatology 3rd Floor [address] [address] Toni Morin MD [address] [place] [address], [address] 5 [place] [phone] Social History Tobacco Use Types Packs/Day Years [...] on file documented as of this encounter Ordered Prescriptions Prescription Sig Dispense Quantity Refills Last Filled Start Date End Date augmented betamethasone dipropionate (DIPROLENE-AF) 0.05 % ointment Apply topically to affected area 2 times daily. Do not apply to face, axilla or groin. 45 g 3 04/09/2019 9 documented in this encounter Plan of Treatment Upcoming Encounters Date Type Department Care Team (Late st Contact Info) Description 03/04/2025 14:00 EDT Telemedicine [facility] Neurology Clinic [address] [place] [address] Brayan Polk MD 130 [facility] [address] [place] [phone] 07/14/2025 14:30 EDT Office Visit [facility] Cancer Center Hematology & Oncology - [address] [phone] Evin Maria MD [address] [place] [address], [address] [place] [address] documented as of this encounter Visit Diagnoses Not on filedocumented in this encounter Care Teams Liquid Sugar Melter Relationship Specialty Start Date End Date Alejandrina Carrillo PA-C [address] [place] [place] [address] PCP - General 04/07/19 07/05/20 documented as of this encounter
--- OUTSIDE RECORDS SUMMARY | 2024-12-03 16:06 | XMS_ITS | Encounter Summary ---
Author Organization [facility] Address [address] [place] [address] Care Team Providers Care Air Export Logistics Manager Name Role Phone Alejandrina Carrillo PA-C Primary Care Provider [phone]- [phone] Encounter Details Date Type Department Care Team (Late st Contact Info) Description 06/09/2019 Historical Results Only [facility] Radiology Results [address] [place], [place] [address] Michell Mujica PA-C [address] [facility] [address] [place], [place] [phone] Social History Tobacco Use Types Packs/Day Years [...] EDT Telemedicine [facility] Neurology Clinic [address] [place] [address] Brayan Polk MD 130 [facility] [address] [place] [address] 07/14/2025 14:30 EDT Office Visit [facility] Cancer Center Hematology & Oncology - [address] [place] [address] [place], [place] [phone] Evin Maria MD 111 [facility], Level 2 [place] [address] documented as of this encounter Procedures Procedure Name Priority Date/Time Associated Diagnosis Comments XR ANKLE LEFT 3 OR MORE VIEWS 06/09/2019 13:21 EDT documented in this encounter Results * XR ANKLE LEFT 3 OR MORE VIEWS (06/09/2019 13:21 EDT) Anatomical Region Laterality Modality Lower Extremities, Ankle Left Other 06/09/2019 13:2 1 EDT Narrative 06/09/2019 13:24 EDT ? EXAM: RADIOLOGY/ANKLE LEFT 3+VIEW ? EX. D/ (1307) ? CLINICAL INFORMATION: ? S82.832G, CLOSED FRACTURE OF DISTAL END OF LEFT FIBULA WITH DELAYED ? HEALING, UNSPECIFIED FRACTURE MORPHOLOGY, SUBSEQUENT ENCOUNTER. ? INDICATION: S82.832G, CLOSED FRACTURE OF DISTAL END OF LEFT FIBULA ? WITH DELAYED, HEALING, UNSPECIFIED FRACTURE MORPHOLOGY, SUBSEQUENT ? ENCOUNTER. F/U LEFT ANKLE FX ? TECHNIQUE: 3 views left ankle. ? COMPARISON: Left ankle x-ray 03/30/2019. CT 04/07/2019. ? FINDINGS: The oblique distal fibula fracture with bony bridging is ? again noted. The distal head of the fibula remains laterally ? displaced approximately 2.5 mm, unchanged. No change in alignment is ? noted. The talar dome appears unchanged. No additional fractures are ? seen. ? IMPRESSION: ? Healing oblique distal fibula fracture, unchanged in alignment. ? REPORT SIGNED IN OTHER VENDOR SYSTEM 06/09/2019 ?Reported By: Toni Disla MD ? CC: ? Transcribed Date/Time: 06/09/2019 (7754) ? Lease Buyer: ? Printed Date/Time: 08/12/2019 (9304) ? PAGE 1 ? Signed Report ? Procedure Note Toni Disla MD - 09/29/2019 EXAM: RADIOLOGY/ANKLE LEFT 3+VIEW EX. D/ (4737) CLINICAL INFORMATION: S82.832G, CLOSED FRACTURE OF DISTAL END OF LEFT FIBULA WITH DELAYED HEALING, UNSPECIFIED FRACTURE MORPHOLOGY, SUBSEQUENT ENCOUNTER. INDICATION: S82.832G, CLOSED FRACTURE OF DISTAL END OF LEFT FIBULA WITH DELAYED, HEALING, UNSPECIFIED FRACTURE MORPHOLOGY, SUBSEQUENT ENCOUNTER. F/U LEFT ANKLE FX TECHNIQUE: 3 views left ankle. COMPARISON: Left ankle x-ray 03/30/2019. CT 04/07/2019. FINDINGS: The oblique distal fibula fracture with bony bridging is again noted. The distal head of the fibula remains laterally displaced approximately 2.5 mm, unchanged. No change in alignmentis noted. The talar dome appears unchanged. No additional fracturesare seen. IMPRESSION: Healing oblique distal fibula fracture, unchanged in alignment. REPORT SIGNED IN OTHER VENDOR SYSTEM 06/09/2019 Reported By: Toni Disla MD CC: Transcribed Date/Time: 06/09/2019 (2214) Lease Buyer: Printed Date/Time: 08/12/2019 (7353) PAGE 1 Signed Report [facility]hell [facility] ORDERABLES Final Result documented in this encounter Visit Diagnoses Not on filedocumented in this encounter Care Teams Air Export Logistics Manager Relationship Specialty Start Date End Date Alejandrina Carrillo PA-C [address] [address] PCP - General 04/07/19 07/05/20 documented as of this encounter
--- OUTSIDE RECORDS SUMMARY | 2024-12-03 16:06 | XMS_ITS | Encounter Summary ---
Author Organization [facility] Address [address] [place] [address] Care Team Providers Care Industrial Waste Inspector Name Role Phone Marci Nolasco MD Primary Care Provider [phone] Alejandrina Carrillo PA-C Primary Care Provider [phone]- [phone] Encounter Details Date Type Department Care Team (Late st Contact Info) Description 03/31/2019 Historical Results Only [facility] Radiology Results [address] [place], [place] [phone] Damon Sanches MD [address] [facility] [address] [place], [place] [phone] Social History Tobacco Use Types Packs/Day Years [...] Description 03/04/2025 14:00 EDT Telemedicine [facility] Neurology Clinic [address] [place] [address] Brayan Polk MD 130 [facility] [address] [place] [address] 07/14/2025 14:30 EDT Office Visit [facility] Cancer Center Hematology & Oncology - [facility] [address] [place], [place] [phone] Evin Maria MD 111 [facility], Level 2 [place] [phone] documented as of this encounter Procedures Procedure Name Priority Date/Time Associated Diagnosis Comments XR ANKLE LEFT 3 OR MORE VIEWS 03/31/2019 13:38 EDT documented in this encounter Results * XR ANKLE LEFT 3 OR MORE VIEWS (03/31/2019 13:38 EDT) Anatomical Region Laterality Modality Lower Extremities, Ankle Left Other 03/31/2019 13:3 8 EDT Narrative 03/31/2019 13:41 EDT ? EXAM: RADIOLOGY/ANKLE LEFT 3+VIEW ? EX. D/ (1145) ? CLINICAL INFORMATION: ? S82.832G CLOSED FRACTURE OF DISTAL END OF LEFT FIBULA ? WITH DELAYED HEALING ? INDICATION: S82.832G CLOSED FRACTURE OF DISTAL END OF LEFT FIBULA, ? WITH DELAYED HEALING. ? COMPARISON: Left ankle radiograph 02/02/2019. ? TECHNIQUE: 3+ views of the left ankle were obtained. ? FINDINGS: ? Progressive but incomplete healing of the nondisplaced fracture the ? distal fibula metaphysis. The ankle mortise is symmetric and intact. ? There is a moderate size ankle joint effusion, slightly smaller on ? today's study. ? IMPRESSION: Healing fracture. ? REPORT SIGNED IN OTHER VENDOR SYSTEM 03/31/2019 ?Reported By: Iron Romero MD ? CC: ? Transcribed Date/Time: 03/31/2019 (1341) ? Scrap Dealer: ? Printed Date/Time: 08/12/2019 (2199) ? PAGE 1 ? Signed Report ? Procedure Note Iron Romero MD - 09/29/2019 EXAM: RADIOLOGY/ANKLE LEFT 3+VIEW EX. D/ (1145) CLINICAL INFORMATION: S82.832G CLOSED FRACTURE OF DISTAL END OF LEFT FIBULA WITH DELAYED HEALING INDICATION: S82.832G CLOSED FRACTURE OF DISTAL END OF LEFT FIBULA, WITH DELAYED HEALING. COMPARISON: Left ankle radiograph 02/02/2019. TECHNIQUE: 3+ views of the left ankle were obtained. FINDINGS: Progressive but incomplete healing of the nondisplaced fracture the distal fibula metaphysis. The ankle mortise is symmetric andintact. There is a moderate size ankle joint effusion, slightly smaller on today's study. IMPRESSION: Healing fracture. REPORT SIGNED IN OTHER VENDOR SYSTEM 03/31/2019 Reported By: Iron Romero MD CC: Transcribed Date/Time: 03/31/2019 (1341) Scrap Dealer: Printed Date/Time: 08/12/2019 (6345) PAGE 1 Signed Report Damon Sanches MD [facility] DI[facility]NOST[facility]AGING ORDERABLE S Final Result documented in this encounter Visit Diagnoses Not on filedocumented in this encounter Care Teams Industrial Waste Inspector Relationship Specialty Start Date End Date Marci Nolasco MD [address] [place] [phone] PCP - General 06/10/09 04/06/19 Alejandrina Carrillo PA-C [address] [place] [phone] PCP - General 04/07/19 07/05/20 documented as of this encounter
--- OUTSIDE RECORDS SUMMARY | 2024-12-03 16:06 | XMS_ITS | Encounter Summary ---
Author Organization [facility] Address [address] [place] [address] Care Team Providers Care Standard Machine Stitcher Name Role Phone Alejandrina Carrillo PA-C Primary Care Provider [phone]- [phone] Reason for Visit * Reason Comments Leg Pain Encounter Details Date Type Department Care Team (Late st Contact Info) Description 11/17/2019 10:45 EST Walk-In [facility] [address] [place] [address] Anushka Bella PA-C [address] [place] [phone] Right calf pain (Primary Dx) Social History Tobacco Use Types [...] Sign Reading Time Taken Comments Blood Pressure 110/80 11/17/2019 1123 EST Pulse 80 11/17/2019 1123 EST Temperature - - Respiratory Rate 20 11/17/2019 1123 EST Oxygen Saturation - - Inhaled Oxygen Concentration - - Weight - - Height - - Body Mass Index - - documented in this encounter Patient Instructions * Patient Instructions* Anushka Bella PA - 11/17/2019 10:45 EST To ED by private vehicle for u/s r/o DVT. ED called and informed of incoming patient. documented in this encounter Progress Notes * Milly Thacker RN - 11/17/2019 1045 EST No redness, some swelling. Painful to touch in the morning. Started about 3 days ago. * Anushka Bella PA - 11/17/2019 1045 EST [facility] Chief Complaint(s): Chief Complaint Patient presents with ??? Leg Pain HPI: HPI Here today with right calf pain x 3 days gradually worsening. Reports swelling of the calf, has baseline swelling but this has acutely increased. NO trauma or precipitating event prior to onset of calf swelling and pain. Reports being more sedentary lately due to other medical issues. Denies SOB, chest pain or hx of DVT. Pain is sharp and aching, worse in the AM and improved throughout the day. Denies shooting pain, numbness or tingling down the leg. No treatment thus far. Denies fever, sweats or chills. I have reviewed current medications, problem list and allergies. ROS: ROS See HPI Objective: Examination: Vitals: BP 110/80 Pulse 80 Resp 20 Physical Exam Constitutional: She appears well-developed and well-nourished. Cardiovascular: Normal rate, regular rhythm and normal heart sounds. Pulmonary/Chest: Effort normal and breath sounds normal. She has no wheezes. She has no rhonchi. She has no rales. Musculoskeletal: Right calf with moderate swelling measuring 1 inch larger than left side. No erythema. TTP of the proximal calf. Knee and ankle no TTP with AFROM. Negative Joby's sign. Neurological: She has normal strength. No sensory deficit. Skin: Skin is warm, dry and intact. No abrasion, no bruising and no ecchymosis noted. No erythema. Assessment & Plan: 1. Right calf pain Atraumatic right calf pain and swelling with recent increase in sedentary behavior. Need to rule out blood clot. Recommend urgent u/s today for further diagnostics. Given the holiday radiology unableto accommodate outpt u/s, she will need to go to through the ED for u/s today. New Prescriptions No medications on file Patient Instructions To ED by private vehicle for u/s r/o DVT. ED called and informed of incoming patient. documented in this encounter Plan of Treatment Upcoming Encounters Date Type Department Care Team (Late st Contact Info) Description 03/04/2025 14:00 EDT Telemedicine [facility] Neurology Clinic [address] [place] [address] Brayan Polk MD 130 [facility] [address] [place] [phone] 07/14/2025 14:30 EDT Office Visit [facility] Cancer Center Hematology & Oncology - [address] [phone] Evin Maria MD [address] [place] [address], [facility], Level 2 [place] [address] documented as of this encounter Visit Diagnoses Diagnosis Right calf pain- Primary documented in this encounter Discontinued Medications Medication Sig Discontinue Reason Start Date End Da te diphenhydrAMINE (BENADRYL) 25 mg capsule Take 50 mg by mouth every 4 hours. 11/17/2019 augmented betamethasone dipropionate (DIPROLENE-AF) 0.05 % ointment Apply topically to affected area 2 times daily. Do not apply to face, axilla or groin. 04/09/2019 11/17/2019 omeprazole (PRILOSEC) 20 mg capsule Take 20 mg by mouth daily. 11/17/2019 documented as of this encounter Historical Medications * This list may reflect changes made after this encounter. omeprazole (PRILOSEC) 40 mg capsule TK ONE C PO QD 0 09/16/2019 0 estradiol-noreth indrone (COMBIPATCH) 0.05-0.14 mg/24 hr patch 1 PATCH applied topically 2 times a week 0 acetaminophen (TYLENOL EXTRA STRENGTH) 500 mg tablet 2 tab(s) orally every 6 hours 0 buPROPion (WELLBUTRIN XL) 300 mg XL tablet TK 1 T PO QAM 0 11/08/201903/31 0 OLANZapine (ZYPREXA) 5 mg tablet TK 1 T PO QD 0 10/17/2019 0 Prazosin (MINIPRESS) 1 mg capsule TK ONE C PO HS 1 08/14/2019 0 propRANolol (INDERAL) 10 mg tablet TK 1 T PO ON AN EMPTY STOMACH Q 8 H PRN 0 09/16/2019 0 QUEtiapine (SEROQUEL) 50 mg tablet Take 100 mg by mouth at bedtime. 1 11/08/2019 0 added in this encounter Care Teams Standard Machine Stitcher Relationship Specialty Start Date End Date Alejandrina Carrillo PA-C [address] [place] [address] PCP - General 04/07/19 07/05/20 documented as of this encounter
--- OUTSIDE RECORDS SUMMARY | 2024-12-03 16:06 | XMS_ITS | Encounter Summary ---
Author Organization [facility] Address [address] [place] [address] Care Team Providers Care Barrel Marker Name Role Phone Alejandrina Carrillo PA-C Primary Care Provider +1- [phone] Reason for Visit * Reason Comments New Patient Visit Alopecia * Consult (Routine) - Closed Specialty Diagnoses / Procedures [facility] Referred To Contact Dermatology Diagnoses Alopecia Alejandrina Carrillo PA-C Phone: tel: fax: [facility] Dermatology 5th [address] [address] Phone: tel: fax: Referral ID Status Reason Start Date Expiration Date Visits Re quested Visits Authorized [id number] Closed 1 1 Encounter Details Date Type Department Care Team (Late st Contact Info) Description 04/08/2019 15:30 EDT Office Visit [facility] Dermatology 3rd Floor [address] [address] Toni Morin MD [address] [place] [address], [facility] [address] [place] [phone] Alopecia areata (Primary Dx) Social History Tobacco Use Types [...] on file documented as of this encounter Progress Notes * Amy Oliveros - 04/08/2019 1530 EDT Review of Systems Constitutional: Positive for fatigue and unexpected weight change. Negative for fever. HENT: Positive for mouth sores. Eyes: Negative for pain. Respiratory: Positive for shortness of breath. Negative for cough. Cardiovascular: Negative for chest pain and palpitations. Gastrointestinal: Positive for diarrhea. Negative for abdominal pain, blood in stool, constipation,nausea and vomiting. Genitourinary: Negative for dysuria, frequency and hematuria. Musculoskeletal: Negative for myalgias, joint swelling, arthralgias and muscle stiffness in the morning. Skin: Negative for rash. Neurological: Positive for numbness. Negative for headaches. Endo/Heme/Allergies: Does not bruise/bleed easily. Psychiatric/Behavioral: Positive for sleep disturbance. The patient is nervous/anxious. Amy Oliveros 04/08/2019 15:19 * Toni Morin MD, - 04/08/2019 1530 EDT Dermatology Outpatient Clinic Note 04/08/2019 Chief Complaint: History of Present Illness: Patient is a 49 y.o. female who presents for new evaluation and treatment of hair loss since Sep 2018. No prior hx same. Bald patch noted. No fh of alopecia areata. No hx thyroid dz. Recent tsh normal. RPR negative. No hx skin ca. No fh melanoma Patient has a current medication list which includes the following prescription(s): diphenhydramineand omeprazole. See documentation in [facility] for medical, surgical, social and family history, which were reviewed atthis visit. Present medications, allergies, review of systems are also documented and were all reviewed at this visit. EXAM: a/o x 3. NAD Face neck trunk and arms seen Right parietal scalp approx 6-7 cm alopecic patch w/ some terminal hairs centrally IMPRESSION & PLAN: Alopecia areata. Discussed dx and rx. She declines intralesional steroids. Rx betameth diprop oint bid. 80-90% cases eventually regrow,. If worsens severely, SKYE -2 inhib tofacitinib and IL4 inhib dupilumab are possible options, off label. rtc prn Toni Morin MD 04/08/2019 15:34 documented in this encounter Plan of Treatment Upcoming Encounters Date Type Department Care Team (Late st Contact Info) Description 03/04/2025 14:00 EDT Telemedicine [facility] Neurology Clinic [address] [place], [place] [phone] Brayan Polk MD 130 [facility] [address] [address] [place] [address] 07/14/2025 14:30 EDT Office Visit [facility] Cancer Center Hematology & Oncology - [address] [phone] Evin Maria MD [address] [place] [address], [facility], [address] [place] [address] documented as of this encounter Visit Diagnoses Diagnosis Alopecia areata- Primary documented in this encounter Historical Medications * This list may reflect changes made after this encounter. diphenhydrAMINE (BENADRYL) 25 mg capsule Take 50 mg by mouth every 4 hours. 11/17/2019 omeprazole (PRILOSEC) 20 mg capsule Take 20 mg by mouth daily. 11/17/2019 added in this encounter Care Teams Barrel Marker Relationship Specialty Start Date End Date Alejandrina Carrillo PA-C [address] [facility] [place] [address] PCP - General 04/07/19 07/05/20 documented as of this encounter
--- OUTSIDE RECORDS SUMMARY | 2024-12-03 16:06 | XMS_ITS | Encounter Summary ---
Author Organization [facility] Address [address] [place] [address] Care Team Providers Care Director Of Consumer Affairs Name Role Phone Alejandrina Carrillo PA-C Primary Care Provider +1- [phone] Encounter Details Date Type Department Care Team (Late st Contact Info) Description 02/14/[address] [facility] - Main [address] [address] Sherman Ponce MD [address] [place] [address] Social History Tobacco Use Types Packs/Day [...] 03/04/2025 14:[address] [facility] Neurology Clinic [address] [place] [address] Brayan Polk MD [address] [place] [address]-[address] [place] [address] 07/14/2025 14:30 EDT Office Visit [facility] Cancer Center Hematology & Oncology - [facility] [address] [place] [address] Evin aMria MD 111 [facility], [facility], Level [address] [place] [address] documented as of this encounter Procedures Procedure Name Priority Date/Time Associated Diagnosis Comments COMPLETE BLOOD COUNT WITH DIFFERENTIAL (AUTO) Routine 02/14/2020 13:30 EDT documented in this encounter Results * (ABNORMAL) COMPLETE BLOOD COUNT WITH DIFFERENTIAL (AUTO) (02/14/2020 13:30 EDT) Gran # 4.0 2.2 - 8.85 10e3/uL 02/14/2020 14:55 [facility] BASO # - [facility] 0.05 0.01 - 0.11 10e/uL 02/14/2020 14:55 [facility] BASO % - [facility] 1 0 - 2 % 02/14/2020 14:55 [facility] EOS # - [facility] 0.30 0.03 - 0.61 10e3/ul 02/14/2020 14:55 [facility] EOS % - [facility] 4 0 - 5 % 02/14/2020 14:55 [facility] GRAN % - [facility] 55.3 40 - 80 % 02/14/2020 14:55 [facility] HEMATOCRIT - [facility] 48.8(H) 34.9 - 44.4 % 02/14/2020 14:55 [facility] HEMOGLOBIN - [facility] 16.3(H) 11.6 - 15.2 g/dl 02/14/2020 14:55 [facility] IG# - [facility] 0.03 0 - 0.7 10e3/uL 02/14/2020 14:55 [facility] IG% - [facility] 0.4 0 - 0.9 % 02/14/2020 14:55 [facility] LYMPH # - [facility] 2.5 1.09 - 3.3 10e3/ul 02/14/2020 14:55 [facility] LYMPH% - [facility] [place] 34.8 20 - 40 % 02/14/2020 14:55 [facility] MEAN CORPUSCULAR HGB - [facility] [place] 34.0(H) 26.7 - 33.3 pg 02/14/2020 14:55 [facility] MEAN CORPUSCULAR HGB CONC - [facility] [place] 33.4 32.1 - 35.9 g/dL 02/14/2020 14:55 [facility] MEAN CELL VOLUME - [facility] [place] 101.9(H) 81 - 98 fl 02/14/2020 14:55 [facility] MONO # - [facility] [place] 0.3 0.1 - 0.8 10e3/uL 02/14/2020 14:55 [facility] MONO% - [facility] [place] 4.7 0 - 12 % 02/14/2020 14:55 [facility] PLATELET COUNT 168 141 - 377 10e3/ul 02/14/2020 14:55 [facility] RED BLOOD COUNT - [facility] [place] 4.79 3.86 - 5.04 10e3/ul 02/14/2020 14:55 [facility] RED CELL DISTRI WIDTH - [facility] [place] 14.1 <14.7 % 02/14/2020 14:55 [facility] WHITE BLOOD COUNT - [facility] [place] 7.3 4.0 - 12.4 10e3/ul 02/14/2020 14:55 [facility] 02/14/2020 13:3 0 EDT 02/14/2020 14:51 EDT us Sherman Ponce MD HEMATOLOGY & PF4 ORDERABLES Final Result [facility] documented in this encounter Visit Diagnoses Not on filedocumented in this encounter Care Teams Director Of Consumer Affairs Relationship Specialty Start Date End Date Alejandrina Carrillo PA-C [address] [place] [address] PCP - General 04/07/19 07/05/20 documented as of this encounter
--- OUTSIDE RECORDS SUMMARY | 2024-12-03 16:06 | XMS_ITS | Encounter Summary ---
Author Organization [facility] Address [address] [place] [address] Care Team Providers Care Medical Billing Clerk Name Role Phone Alejandrina Carrillo PA-C Primary Care Provider +1- [phone] Romario Hairston MD Primary Care Provider +1- [phone] Encounter Details Date Type Department Care Team (Late st Contact Info) Description 08/19/2019 Results Only Imaging [facility] Radiology Results [address] [place] [address] Alejandrina Carrillo PA-C [address] [place] [address] Social History Tobacco Use Types Packs/Day Years [...] Telemedicine [facility] Neurology Clinic [address] [place] [address] Brayan Polk MD 130 [facility] [address] [place] [address] 07/14/2025 14:30 EDT Office Visit [facility] Cancer Center Hematology & Oncology - [address] [address] Evin Maria MD 111 [facility] [address] [place] [address] documented as of this encounter Procedures Procedure Name Priority Date/Time Associated Diagnosis Comments MA BREAST SCREENING FATOUMATA BILATERAL 08/19/2019 10:21 EDT documented in this encounter Results * MA BREAST SCREENING FATOUMATA BILATERAL (08/19/2019 10:21 EDT) Anatomical Region Laterality Modality Breast Bilateral Mammography 08/19/2019 10:2 1 EDT Narrative 08/19/2019 10:21 EDT ? EXAM: MAMMOGRAM/MAMMO BILATERAL SCREEN W ??EX. D/ (1341) ? CLINICAL INFORMATION: ? Z12.31 SCREENING, BASELINE ? INDICATION: Z12.31 SCREENING, BASELINE BASELINE SCREENING ? COMPARISON: Comparison has been made to previous images. ? TECHNIQUE: ??Full field digital whole breast 2D (C-view) and 3D CC and ? MLO views of both breasts were obtained. CAD technology was utilized. ? FINDINGS: ??The fibroglandular patterns of the breasts are normal. ? There has been no change when compared to previous mammograms and ? there is no mammographic evidence of cancer. There are scattered ? areas of fibroglandular density. ? FINAL ASSESSMENT BILATERAL BREAST: ??BI-RADS Category 1 - Negative. ? Routine mammographic follow-up is recommended. ? These results will be communicated to your patient via a lay letter ? from Radiology. ??If any additional imaging is needed we will contact ? your patient directly. ? REPORT SIGNED IN OTHER VENDOR SYSTEM 08/19/2019 ?Reported By: Sherman Marie MD ? CC: ? Transcribed Date/Time: 08/19/2019 (1021) ? Lift Slab Operator: ? Printed Date/Time: 08/19/2019 (0661) ? PAGE 1 ? Signed Report ? Procedure Note Sherman Marie MD, MD - 10/03/2019 EXAM: MAMMOGRAM/MAMMO BILATERAL SCREEN W EX. D/ (1341) CLINICAL INFORMATION: Z12.31 SCREENING, BASELINE INDICATION: Z12.31 SCREENING, BASELINE BASELINE SCREENING COMPARISON: Comparison has been made to previous images. TECHNIQUE: Full field digital whole breast 2D (C-view) and 3D CCand MLO views of both breasts were obtained. CAD technology wasutilized. FINDINGS: The fibroglandular patterns of the breasts are normal. There has been no change when compared to previous mammograms and there is no mammographic evidence of cancer. There are scattered areas of fibroglandular density. FINAL ASSESSMENT BILATERAL BREAST: BI-RADS Category 1 - Negative. Routine mammographic follow-up is recommended. These results will be communicated to your patient via a lay letter from Radiology. If any additional imaging is needed we willcontact your patient directly. REPORT SIGNED IN OTHER VENDOR SYSTEM 08/19/2019 Reported By: Sherman Marie MD CC: Transcribed Date/Time: 08/19/2019 (1021) Lift Slab Operator: Printed Date/Time: 08/19/2019 (5811) PAGE 1 Signed Report Alejandrina Carrillo PA-C IMG MAMMOGRAPHY ORDERABLES Final Result documented in this encounter Visit Diagnoses Not on filedocumented in this encounter Additional Health Concerns Infection Onset Date Last Indicated Resolved Time R/O COVID-19 Comment:Negative result 03/07/2022 03/07/2022 03/07/2022 9:37 EDT R/O COVID-19 01/28/2024 01/28/2024 01/29/2024 0:27 EST documented as of this encounter Care Teams Medical Billing Clerk Relationship Specialty Start Date End Date Alejandrina Carrillo PA-C [address] [place] [address] PCP - General 04/07/19 07/05/20 Romario Hairston MD [address], [facility] [place] [address] PCP - General 07/06/20 documented as of this encounter
--- OUTSIDE RECORDS SUMMARY | 2024-12-03 16:06 | XMS_ITS | Encounter Summary ---
Author Organization [facility] Address [address] [place] [address] Care Team Providers Care Sewer And Drain Technician Name Role Phone Alejandrina Carrillo PA-C Primary Care Provider +1- [phone] Romario Hairston MD Primary Care Provider +1- [phone] Reason for Visit * Reason Onset Date Comments Other 04/10/2019 Referral Notes a nd Labs Scanned Encounter Details Date Type Department Care Team (Late st Contact Info) Description 04/10/2019 Telephone [facility] Dermatology 3rd Floor [address] [phone] Toni Morin MD [address] [place] [address], [address] [place] [address] Other (Referral Notes and Labs Scanned) Social History Tobacco Use Types Packs/Day Years [...] on file documented as of this encounter Miscellaneous Notes * Telephone Encounter - Edith Espinoza - 04/10/2019 1502 EDT Labs and referral notes received and scanned in [employer]. documented in this encounter Plan of Treatment Upcoming Encounters Date Type Department Care Team (Late st Contact Info) Description 03/04/2025 14:00 EDT Telemedicine [facility] Neurology Clinic [address] [place] [address] Brayan Polk MD 130 [facility] [address] [place] [phone] 07/14/2025 14:30 EDT Office Visit [facility] Cancer Center Hematology & Oncology - [facility] [address] [place], [place] [phone] Evin Maria MD 111 [facility], [address] [place] [address] documented as of this encounter Visit Diagnoses Not on filedocumented in this encounter Additional Health Concerns Infection Onset Date Last Indicated Resolved Time R/O COVID-19 Comment:Negative result 03/07/2022 03/07/2022 03/07/2022 9:37 EDT R/O COVID-19 01/28/2024 01/28/2024 01/29/2024 0:27 EST documented as of this encounter Care Teams Sewer And Drain Technician Relationship Specialty Start Date End Date Alejandrina Carrillo PA-C [address] [place] [address] PCP - General 04/07/19 07/05/20 Romario Hairston MD [address], [address] [phone] PCP - General 07/06/20 documented as of this encounter
--- OUTSIDE RECORDS SUMMARY | 2024-12-03 16:06 | XMS_ITS | Encounter Summary ---
Author Organization [facility] Address [address] [place] [address] Care Team Providers Care Real Estate Listing Consultant Name Role Phone Alejandrina Carrillo PA-C Primary Care Provider +1- [phone] Encounter Details Date Type Department Care Team (Latest Contact Info) Description 02/14/2020 Travel Social History Tobacco Use Types Packs/Day [...] 14:00 EDT Telemedicine [facility] [address] [place] [address] Brayan Polk MD 130 [facility] [address] [place] [address] 07/14/2025 14:30 EDT Office Visit [facility] Cancer Center Hematology & Oncology - [address] [address] Evin Maria MD 111 [facility], Level [address] [place] [address] documented as of this encounter Visit Diagnoses Not on filedocumented in this encounter Care Teams Real Estate Listing Consultant Relationship Specialty Start Date End Date Alejandrina Carrillo PA-C [address] [place] [address] PCP - General 04/07/19 07/05/20 documented as of this encounter
--- OUTSIDE RECORDS SUMMARY | 2024-12-03 16:06 | XMS_ITS | Encounter Summary ---
Author Organization [facility] Address [address] [place] [address] Care Team Providers Care Cloud Automation Tester Name Role Phone Alejandrina Carrillo PA-C Primary Care Provider +1- [phone] Encounter Details Date Type Department Care Team (Late st Contact Info) Description 04/07/2019 Historical Results Only [facility] Radiology Results [address] [place] [address] Damon Sanches MD [address] [facility] [address] [place], [place] [phone] Social History Tobacco Use Types Packs/Day Years [...] Description 03/04/2025 14:00 EDT Tele[facility] Neurology Clinic [address] [place] [address] Brayan Polk MD 130 [facility] [address] [place] [address] 07/14/2025 14:30 EDT Office Visit [facility] Cancer Center Hematology & Oncology - [address] [phone] Evin Maria MD 111 [facility], [facility], Level [address] [place] [address] documented as of this encounter Procedures Procedure Name Priority Date/Time Associated Diagnosis Comments CT LOWER EXTREMITY WO CONTRAST 04/07/2019 15:00 EDT documented in this encounter Results * CT LOWER EXTREMITY WO CONTRAST (04/07/2019 15:00 EDT) Anatomical Region Laterality Modality Lower Extremities Other 04/07/2019 15:0 0 EDT Narrative 04/07/2019 15:03 EDT ? EXAM: CAT SCAN/LOWER EXT. WITHOUT CONTRAS EX. D/ (1437) ? CLINICAL INFORMATION: ? S82.832G CLOSED FX OF DISTAL END OF LEFT FIBULA ? W/ DELAYED HEALING OF FX ? EVAL FOR THE AMOUNT OF HEALING/ SURGICAL PLANNING ? INDICATION: S82.832G CLOSED FX OF DISTAL END OF LEFT FIBULA, W/ ? DELAYED HEALING OF FX, EVAL FOR THE AMOUNT OF HEALING/ SURGICAL ? PLANNING CLOSED FRACTURE OF DISTAL END OF LEFT FIBULA ? TECHNIQUE: ??Axial unenhanced imaging of the left ankle was obtained. ? MPR reconstruction was then performed. ? COMPARISON: 03/30/2019 and 02/02/2019 plain film. ? FINDINGS: The oblique distal fibula fracture is again noted (series 6 ? image 38). There appears to be bony bridging along the fracture line ? (series 5 image 45) the distal head of the fibula is displaced ? approximately 2.5 mm laterally (series 5 image 40), unchanged from ? comparison plain films. No additional fractures are noted. The medial ? malleolus is intact with no acute fracture detected. Talar dome is ? unremarkable. There is a small ankle joint effusion. The subtalar ? joints are well aligned. The talonavicular joint is also ? unremarkable. Limited assessment at the cuboid and cuneiform bones is ? unremarkable. Incidental note is made of an os navicularis a (series ? 2 image 72). Soft tissue thickening is seen proximal to this in the ? area of the posterior tibial tendon (series 2 image 68). Limited ? assessment of the remaining major tendinous structures at the ankle ? appear unremarkable. The distal Achilles appears unremarkable. ? IMPRESSION: ? 1. Healing oblique distal fibula fracture with bony bridging. There ? is approximately 2.5 mm lateral displacement of the distal fibula ? head. ? 2. Large ankle joint effusion. ? 3. Apparent abnormal thickening of the distal 2-3 cm of the posterior ? tibial tendon at its insertion upon the navicular/os navicularis. ? This may reflect a variant attachment point, however if there is ? focal tenderness at this site, an MRI could be obtained to assess for ? injury to the distal posterior tibial tendon. ? REPORT SIGNED IN OTHER VENDOR SYSTEM 04/07/2019 ?Reported By: Toni Disla MD ? CC: ? Transcribed Date/Time: 04/07/2019 (1503) ? Credit Checker: ? Printed Date/Time: 08/12/2019 (1739) ? PAGE 1 ? Signed Report ? Procedure Note Toni Disla MD - 09/29/2019 EXAM: CAT SCAN/LOWER EXT. WITHOUT CONTRAS EX. D/ (1437) CLINICAL INFORMATION: S82.832G CLOSED FX OF DISTAL END OF LEFT FIBULA W/ DELAYED HEALING OF FX EVAL FOR THE AMOUNT OF HEALING/ SURGICAL PLANNING INDICATION: S82.832G CLOSED FX OF DISTAL END OF LEFT FIBULA, W/ DELAYED HEALING OF FX, EVAL FOR THE AMOUNT OF HEALING/ SURGICAL PLANNING CLOSED FRACTURE OF DISTAL END OF LEFT FIBULA TECHNIQUE: Axial unenhanced imaging of the left ankle wasobtained. MPR reconstruction was then performed. COMPARISON: 03/30/2019 and 02/02/2019 plain film. FINDINGS: The oblique distal fibula fracture is again noted (series6 image 38). There appears to be bony bridging along the fractureline (series 5 image 45) the distal head of the fibula is displaced approximately 2.5 mm laterally (series 5 image 40), unchanged from comparison plain films. No additional fractures are noted. Themedial malleolus is intact with no acute fracture detected. Talar dome is unremarkable. There is a small ankle joint effusion. The subtalar joints are well aligned. The talonavicular joint is also unremarkable. Limited assessment at the cuboid and cuneiform bonesis unremarkable. Incidental note is made of an os navicularis a(series 2 image 72). Soft tissue thickening is seen proximal to this in the area of the posterior tibial tendon (series 2 image 68). Limited assessment of the remaining major tendinous structures at the ankle appear unremarkable. The distal Achilles appears unremarkable. IMPRESSION: 1. Healing oblique distal fibula fracture with bony bridging. There is approximately 2.5 mm lateral displacement of the distal fibula head. 2. Large ankle joint effusion. 3. Apparent abnormal thickening of the distal 2-3 cm of theposterior tibial tendon at its insertion upon the navicular/os navicularis. This may reflect a variant attachment point, however if there is focal tenderness at this site, an MRI could be obtained to assessfor injury to the distal posterior tibial tendon. REPORT SIGNED IN OTHER VENDOR SYSTEM 04/07/2019 Reported By: Toni Disla MD CC: Transcribed Date/Time: 04/07/2019 (4968) Credit Checker: Printed Date/Time: 08/12/2019 (3494) PAGE 1 Signed Report Damon Sanches MD IMG CT ORDERABLES Final Result documented in this encounter Visit Diagnoses Not on filedocumented in this encounter Care Teams Cloud Automation Tester Relationship Specialty Start Date End Date Alejandrina Carrillo PA-C [address] [place] [address] PCP - General 04/07/19 07/05/20 documented as of this encounter
--- OUTSIDE RECORDS SUMMARY | 2024-12-03 16:06 | XMS_ITS | Encounter Summary ---
Author Organization [facility] Address [address] [place] [address] Care Team Providers Care Instant Print Operator Name Role Phone Marci Nolasco MD Primary Care Provider [phone] Encounter Details Date Type Department Care Team (Latest Contact Info) Description 02/02/2019 10:54 EDT - 02/02/2019 23:59 EDT Hospital Encounter [address] [address] Unknown, Provider, MD Discharge Disposition: Home or Self Care Social History Tobacco Use Types Packs/Day Years Used Date Smoking Tobacco: Never Assessed Comments Unknown Sex and Gender Information Value Date Recorded Sex Assigned at Not on file Legal Sex Female 17:42 EST Gender Identity Female 03/18/2020 17:54 EDT Sexual Orientation Not on file documented as of this encounter Discharge Disposition Disposition Code Departure Means Destination Home or Self Mcfp documented in this encounter Plan of Treatment Upcoming Encounters Date Type Department Care Team (Late st Contact Info) Description 03/04/2025 14:00 EDT Telemedicine [facility] [address] [place], [place] [address] Brayan Polk MD 130 [facility] [address] [place] [address] 07/14/2025 14:30 EDT Office Visit [facility] Hematology & Oncology - [address] [address] Evin Maria MD 111 [facility], [facility], [address] [place] [address] documented as of this encounter Visit Diagnoses Not on filedocumented in this encounter Care Teams Instant Print Operator Relationship Specialty Start Date End Date Marci Nolasco MD [address] [place] [phone] PCP - General 06/10/09 04/06/19 documented as of this encounter
--- OUTSIDE RECORDS SUMMARY | 2024-12-03 16:06 | XMS_ITS | Encounter Summary ---
Author Organization [facility] Address [address] [place] [address] Care Team Providers Care Financial Aid Administrator Name Role Phone Marci Nolasco MD Primary Care Provider [phone] Alejandrina Carrillo PA-C Primary Care Provider [phone] Encounter Details Date Type Department Care Team (Late st Contact Info) Description 02/04/2019 Historical Results Only [facility] Radiology Results [address] [place], [place] [id number] Damon Sanches MD [address] [facility] [address] [place], [place] [id number] Social History Tobacco Use Types Packs/Day Years [...] Contact Info) Description 03/04/2025 14:00 EDT Telemedicine [facility] Neurology Clinic [address] [place] [address] Brayan Polk MD 130 [facility] [address] [place] [address] 07/14/2025 14:30 EDT Office Visit [facility] Hematology & Oncology - [facility] [address] [place], [place] [phone] Evin Maria MD 111 [facility], [address] [place] [phone] documented as of this encounter Procedures Procedure Name Priority Date/Time Associated Diagnosis Comments XR ANKLE LEFT 3 OR MORE VIEWS 02/04/2019 11:58 EDT documented in this encounter Results * XR ANKLE LEFT 3 OR MORE VIEWS (02/04/2019 11:58 EDT) Anatomical Region Laterality Modality Lower Extremities, Ankle Left Other 02/04/2019 11:5 8 EDT Narrative 02/04/2019 12:01 EDT ? EXAM: RADIOLOGY/ANKLE LEFT 3+VIEW ? EX. D/ (1621) ? CLINICAL INFORMATION: ? S82.832G, CLOSED FRACTURE OF DISTAL END OF LEFT FIBULA WITH DELAYED ? HEALING, UNSPECIFIED FRACTURE MORPHOLOGY. ? INDICATION: S82.832G, CLOSED FRACTURE OF DISTAL END OF LEFT FIBULA ? WITH DELAYED, HEALING, UNSPECIFIED FRACTURE MORPHOLOGY.. ? COMPARISON: Left ankle radiograph 12/22/2018. ? TECHNIQUE: 3+ views of the left ankle were obtained. ? FINDINGS: ? Healing nondisplaced fracture of the distal fibula metaphysis is ? unchanged in position and alignment when compared to the prior ? examination. An ankle joint effusion is present. The bones are mildly ? osteopenic. ? REPORT SIGNED IN OTHER VENDOR SYSTEM 02/04/2019 ?Reported By: Iron Romero MD ? CC: ? Transcribed Date/Time: 02/04/2019 (1201) ? Television And Radio Repairer: ? Printed Date/Time: 05/17/2019 (4201) ? PAGE 1 ? Signed Report ? Procedure Note Iron Romero MD - 10/01/2019 EXAM: RADIOLOGY/ANKLE LEFT 3+VIEW EX. D/ (1621) CLINICAL INFORMATION: S82.832G, CLOSED FRACTURE OF DISTAL END OF LEFT FIBULA WITH DELAYED HEALING, UNSPECIFIED FRACTURE MORPHOLOGY. INDICATION: S82.832G, CLOSED FRACTURE OF DISTAL END OF LEFT FIBULA WITH DELAYED, HEALING, UNSPECIFIED FRACTURE MORPHOLOGY.. COMPARISON: Left ankle radiograph 12/22/2018. TECHNIQUE: 3+ views of the left ankle were obtained. FINDINGS: Healing nondisplaced fracture of the distal fibula metaphysis is unchanged in position and alignment when compared to the prior examination. An ankle joint effusion is present. The bones aremildly osteopenic. REPORT SIGNED IN OTHER VENDOR SYSTEM 02/04/2019 Reported By: Iron Romero MD CC: Transcribed Date/Time: 02/04/2019 (1201) Television And Radio Repairer: Printed Date/Time: 05/17/2019 (1240) PAGE 1 Signed Report Damon Sanches MD IMG DIAGNOSTIC IMAGING ORDERABLE S Final Result documented in this encounter Visit Diagnoses Not on filedocumented in this encounter Care Teams Financial Aid Administrator Relationship Specialty Start Date End Date Marci Nolasco MD [address] [place] [phone] PCP - General 06/10/09 04/06/19 Alejandrina Carrillo PA-C [address] [place] [address] PCP - General 04/07/19 07/05/20 documented as of this encounter
--- OUTSIDE RECORDS SUMMARY | 2024-12-03 16:06 | XMS_ITS | Encounter Summary ---
Author Organization [facility] Address [address] [place] [address] Care Team Providers Care Weapons System Instrument Mechanic Name Role Phone Alejandrina Carrillo PA-C Primary Care Provider [phone] Romario Hairston MD Primary Care Provider [phone] Encounter Details Date Type Department Care Team (Late st Contact Info) Description 02/14/2020 Results Only Imaging [facility] Radiology Results [address] [place] [address] Jean Mccarthy MD [address] [place], [place] [phone] Social History Tobacco Use Types Packs/Day Years [...] EDT Telemedicine [facility] Neurology Clinic [address] [place] [address] Brayan Polk MD [address] [place] [address] [facility] [place] [phone] 07/14/2025 14:30 EDT Office Visit [facility] H[facility]ology & Oncology - [facility] [address] [place], [place] [address] Evin Maria MD 111 [facility], [facility], [address] 2 [place] [address] documented as of this encounter Procedures Procedure Name Priority Date/Time Associated Diagnosis Comments CT HEAD WO CONTRAST 02/14/2020 1 4:33 EDT documented in this encounter Results * CT HEAD WO CONTRAST (02/14/2020 14:33 EDT) Anatomical Region Laterality Modality Head Computed Tomogra phy 02/14/2020 14:3 3 EDT Narrative 02/14/2020 14:33 EDT ? EXAM: CAT SCAN/HEAD WITHOUT CONTRAST ?EX. D/ (1413) ? CLINICAL INFORMATION: ? STROKE SXS ? PROCEDURE INFORMATION: ? Exam: CT Head Without Contrast ? Exam date and time: 02/14/2020 2:07 PM ? Age: 50 years old ? Clinical indication: Other: Unknown; Additional info: Stroke sxs ? TECHNIQUE: ? Imaging protocol: Computed tomography [...] ? COMPARISON: ? CT HEAD WITHOUT CONTRAST 02/12/2020 3:16 PM ? FINDINGS: ? Brain: Acute intra-axial hemorrhage left temporal and frontal ? lobes the approximately 5.8 by 3.5 by 4.8 cm. Associated ? subarachnoid hemorrhage over the left hemisphere. ? Midline shift: 2 mm rhkw-st-lyfrp midline shift. ? Ventricles: Normal. No ventriculomegaly. ? Bones/joints: Unremarkable. No acute fracture. ? Sinuses: Visualized sinuses are unremarkable. No fluid levels. ? Mastoid air cells: Visualized mastoid air cells are well ? aerated. ? Soft tissues: Unremarkable. ? IMPRESSION: ? 1. Acute intra-axial hemorrhage left temporal and frontal lobes ? the approximately 5.8 by 3.5 by 4.8 cm. Associated subarachnoid ? hemorrhage over the left hemisphere. ? 2. 2 mm wocp-uh-vspyq midline shift. ? ASSESSMENT: ? ASPECTS ([place] Stroke Program Early CT Score) is 10. ? THIS REPORT CONTAINS FINDINGS THAT MAY BE CRITICAL TO PATIENT ? CARE. The findings were verbally communicated via telephone ? PAGE 1 ? Signed Report ? (CONTINUED) ? conference with Dr. Ponce at 2:32 PM EDT on 02/14/2020. The ? findings were acknowledged and understood. ? REPORT SIGNED IN OTHER VENDOR SYSTEM 02/14/2020 ?Reported By: Jean Morris MD ? CC: Jean Mccarthy MD ? Transcribed Date/Time: 02/14/2020 (1433) ? Territory Outside Sales Manager: HIS.[email or web address] ? Printed Date/Time: 02/14/2020 (8243) ? PAGE 2 ? Signed Report ? Procedure Note Jean Morris MD - 02/14/2020 EXAM: CAT SCAN/HEAD WITHOUT CONTRAST EX. D/ (1413) CLINICAL INFORMATION: STROKE SXS PROCEDURE INFORMATION: Exam: CT Head Without Contrast Exam date and time: 02/14/2020 2:07 PM Age: 50 years old Clinical indication: Other: Unknown; Additional info: Stroke sxs TECHNIQUE: Imaging protocol: Computed tomography of the head without contrast. Radiation optimization: All CT scans at this facility use at least one of these dose optimization techniques: automated exposure control; mA and/or kV adjustment per patient size (includes targeted exams where dose is matched to clinical indication); or iterative reconstruction. Other technique: STROKE PROTOCOL was implemented. COMPARISON: CT HEAD WITHOUT CONTRAST 02/12/2020 3:16 PM FINDINGS: Brain: Acute intra-axial hemorrhage left temporal and frontal lobes the approximately 5.8 by 3.5 by 4.8 cm. Associated subarachnoid hemorrhage over the left hemisphere. Midline shift: 2 mm hauy-wk-hcfkf midline shift. Ventricles: Normal. No ventriculomegaly. Bones/joints: Unremarkable. No acute fracture. Sinuses: Visualized sinuses are unremarkable. No fluid levels. Mastoid air cells: Visualized mastoid air cells are well aerated. Soft tissues: Unremarkable. IMPRESSION: 1. Acute intra-axial hemorrhage left temporal and frontal lobes the approximately 5.8 by 3.5 by 4.8 cm. Associated subarachnoid hemorrhage over the left hemisphere. 2. 2 mm mbpm-gv-wpkvl midline shift. ASSESSMENT: ASPECTS ([place] Stroke Program Early CT Score) is 10. THIS REPORT CONTAINS FINDINGS THAT MAY BE CRITICAL TO PATIENT CARE. The findings were verbally communicated via telephone PAGE 1 Signed Report (CONTINUED) conference with Dr. Ponce at 2:32 PM EDT on 02/14/2020. The findings were acknowledged and understood. REPORT SIGNED IN OTHER VENDOR SYSTEM 02/14/2020 Reported By: Jean Morris MD CC: Jean Mccarthy MD Transcribed Date/Time: 02/14/2020 (9123) Territory Outside Sales Manager: Printed Date/Time: 02/14/2020 (6491) PAGE 2 Signed Report Jean Mccarthy MD IMG CT ORDERABLES Final Res ult documented in this encounter Visit Diagnoses Not on filedocumented in this encounter Additional Health Concerns Infection Onset Date Last Indicated Resolved Time R/O COVID-19 Comment:Negative result 03/07/2022 03/07/2022 03/07/2022 9:37 EDT R/O COVID-19 01/28/2024 01/28/2024 01/29/2024 0:27 EST documented as of this encounter Care Teams Weapons System Instrument Mechanic Relationship Specialty Start Date End Date Alejandrina Carrillo PA-C [address] [place] [address] PCP - General 04/07/19 07/05/20 Romario Hairston MD [address] [place] [address] PCP - General 07/06/20 documented as of this encounter
--- OUTSIDE RECORDS SUMMARY | 2024-12-03 16:06 | XMS_ITS | Encounter Summary ---
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 Referral ID Status Reason Start Date Expiration Date Visits Re quested Visits Authorized [id number] 1 1 Encounter Details Date Type Department Care Team (Latest Contact Info) Description 02/14/2020 14:14 EDT - 02/14/2020 16:22 EDT Hospital Encounter [facility] Radiology - Main [place] [address] [place] [phone] Discharge Disposition: Home or Self Care Social [...] 14:29 EDT documented as of this encounter Medications at Time of Discharge acetaminophen (TYLENOL EXTRA STRENGTH) 500 mg tablet 2 tab(s) orally every 6 hours 0 acetaminophen (TYLENOL) 500 mg tablet Take 2 Tabs by mouth every 6 hours. 03/02/2020 0 amino acids-protein hydrolysate (PRO SOURCE NOCARB) 15-60 gram-kcal/30 mL packet 60 mL by feeding tube route 2 times daily for 14 days. 56 Packet 03/02/2020 0 aspirin chewable 81 mg tablet [...] for 28 days. 51 Syringe 03/02/2020 0 estradiol-norethi ndrone (COMBIPATCH) 0.05-0.14 mg/24 hr patch 1 PATCH applied topically 2 times a week 0 guaiFENesin 200 mg tablet Take 1 Tab by mouth every 6 hours as needed for Other (wet cough). 15 Tab 03/02/2020 0 lisinopriL (PRINIVIL) 20 mg tablet Take 1 Tab by mouth daily for 28 days. 28 Tab 03/03/2020 0 melatonin 3 mg tablet Take 1 Tab by mouth at bedtime. 03/02/2020 0 Multivitamins with minerals + ferrous gluconate (CENTRUM) 9 mg iron/15 mL liquid oral solution 15 mL by per g tube route daily for 28 days. 420 mL 03/03/2020 0 nicotine (NICODERM CQ) 7 mg/[address] 1 Patch onto the skin every 24 hours for 28 days. 28 Patch 03/03/2020 0 omeprazole (PRILOSEC) 40 mg capsule TK ONE C PO QD 0 09/16/2019 0 ondansetron, PF, (ZOFRAN) 4 mg/2 mL solution Inject 2 mL into the vein every 4 hours as needed for Nausea. 1 Vial 03/02/2020 0 pantoprazole (PROTONIX) 40 mg tablet Take 1 Tab by mouth daily for 28 days. 28 Tab 03/03/2020 0 Prazosin (MINIPRESS) 1 mg capsule TK [...] by mouth 2 times daily. 03/02/2020 0 documented as of this encounter Discharge Disposition Disposition Code Departure Means Destination Home or Self Care documented in this encounter Plan of Treatment Upcoming Encounters Date Type Department Care Team (Late st Contact Info) Description 03/04/2025 14:00 EDT Telemedicine [facility] Neurology Clinic [address] [place] [phone] Brayan Polk MD [address] [place] [address]-[address] [place] [phone] 07/14/2025 14:30 EDT Office Visit [facility] Center Hematology & Oncology - [address] [phone] Evin Maria MD [address] [place] [address], [address] [place] [phone] documented as of this encounter Procedures Procedure Name Priority Date/Time Associated Diagnosis Comments CT OUTSIDE IMAGES NEURO Routine 02/14/2020 14:14 EDT documented in this encounter Results * CT OUTSIDE IMAGES NEURO (02/14/2020 14:14 EDT) Jocelyn BELTRÁN - 02/14/2020 14:14 EDT This is a non-reportable exam. us Physician Fa_General IMG OTHER IMAGING ORDERA BLES Final Result [id number] documented in this encounter Visit Diagnoses Not on filedocumented in this encounter Care Teams Product Management Manager Relationship Specialty Start Date End Date Alejandrina Carrillo PA-C [address] [place] [address] PCP - General 04/07/19 07/05/20 documented as of this encounter
--- OUTSIDE RECORDS SUMMARY | 2024-12-03 16:06 | XMS_ITS | Encounter Summary ---
Author Organization [facility] Address [address] [place] [address] Care Team Providers Care Roofing Layer Name Role Phone Alejandrina Carrillo PA-C Primary Care Provider [phone]- [phone] Reason for Visit * Reason Comments Migraine Patient reports migr hung over last 24 hours. Also admits runny nose & dry cough x last 10 days to 2 weeks with increased sneezing over last 5 days. Denies shortness of breath, body aches and/or fever. Denies travel outside of [place] over last month. Encounter Details Date Type Department Care Team (Late st Contact Info) Description 02/12/2020 13:30 EDT Walk-In [facility] - [address] [address] Anali Brunner MD [address] [facility] [address] [place] [address] New onset headache (Primary Dx) Social History Tobacco Use Types [...] 13:21 EDT documented as of this encounter Last Filed Vital Signs Vital Sign Reading Time Taken Comments Blood Pressure 124/84 02/12/2020 1344 EDT Pulse 76 02/12/2020 1344 EDT Temperature - - Respiratory Rate 22 02/12/2020 1344 EDT Oxygen Saturation 96% 02/12/2020 1344 EDT Inhaled Oxygen Concentration - - Weight - - Height - - Body Mass Index - - documented in this encounter Patient Instructions * Patient Instructions* Anali Brunner MD - 02/12/2020 13:30 EDT I am sending Ynes to ER for new onset headache in the willard-menopause. I feel she needs scanning before any additional meds provided. Spoke with charge nurse this date. documented in this encounter Progress Notes * Anali Brunner MD - 02/12/2020 1330 EDT [facility] Express [facility] Chief Complaint(s): Migraine HPI: No history of headaches. First onset of left sided headache 1 week ago-no flashing lilghts noraura. Headache last week 08/04- she woke up with it in the AM- lasted for 3 days. She took Tylenol with some dulling of the pain. After headache gone, her left ear was plugged. This current headache began yesterday in the mid-afternoon- throbbing, continuous. NO vision changes. She vomited this AM. No family hx of aneurysm. She smokes 2-5 cigarettes daily at present. NO recent fever. She always has a runny nose. Patient Active Problem List Diagnosis Code ??? Back pain M54.9 ??? Chronic low back pain M54.5, G89.29 ??? Encounter for insertion or removal of intrauterine contraceptive device Z30.9 ??? Nicotine dependence, unspecified, uncomplicated F17.200 ??? Perimenopausal N95.1 ??? Post concussion syndrome F07.81 ??? Tobacco abuse Z72.0 Allergies Allergen Reactions ??? Citalopram Other reaction(s): increased anxiety ??? Duloxetine Other reaction(s): increased anxiety ??? Pregabalin Other reaction(s): dizziness ??? Zolpidem Other reaction(s): sleep walking with over 5 mg I have reviewed current problem list and current medications. Social History Occupational History ??? Not on file Tobacco Use ??? Smoking status: Current Every Day Smoker ??? Smokeless tobacco: Never Used Substance and Sexual Activity ??? Alcohol use: Yes ??? Drug use: Not on file ??? Sexual activity: Not on file ROS:Not coughing a lot. Perhaps a bit more dry cough than usual. Not significant. No ear pain per se. Lots of fatigue the past 2 weeks. Objective: Examination: Vitals: BP 124/84 Pulse 76 Resp 22 SpO2 96% There is no height or weight on file to calculate BMI. WDWN WF in moderate distress in darkened room HEENT- head and temples NTTP. Discs sharp. EOMI, CARLOS TMs clear. Oropharynx clear. Neck supple without node, thyromegaly. CV RR S1S2 without murmur, rub, gallop Lungs CTA Neuro- alert and oriented x3. CN2-12 intact. DTRs 2+ and symmetric. Normal light touch. Motor 5/5 Negative rhomberg. Normal tandem gait. Normal rapid hand alternation, finger to nose. Assessment & Plan: 1. New onset headache I am sending Ynes to ER for new onset headache in the willard-menopause. I feel she needs scanning before any additional meds provided. Spoke with charge nurse this date. documented in this encounter Plan of Treatment Upcoming Encounters Date Type Department Care Team (Late st Contact Info) Description 03/04/2025 14:00 EDT Telemedicine [facility] - [facility] Neurology Clinic [address] [place] [address] Brayan Polk MD 130 [facility] [address] [place] [address] 07/14/2025 14:30 EDT Office Visit [facility] Center Hematology & Oncology - [address] [address] Evin Maria MD [address] [place] [address], [facility], [address] [place] [address] documented as of this encounter Procedures Procedure Name Priority Date/Time Associated Diagnosis Comments CT HEAD WO CONTRAST 02/12/2020 1 5:31 EDT SPEC W/O ORDERS - [facility] Routine 02/12/2020 14:35 EDT New onset headache SPEC W/O ORDERS - [facility] Routine 02/12/2020 14:35 EDT New onset headache documented in this encounter Results * CT HEAD WO CONTRAST (02/12/2020 15:31 EDT) Anatomical Region Laterality Modality Head Computed Tomogra phy 02/12/2020 15:2 7 EDT Narrative 02/12/2020 15:31 EDT ? EXAM: CAT SCAN/HEAD WITHOUT CONTRAST ?EX. D/ (1520) ? CLINICAL INFORMATION: ? left frontal headache ? INDICATION: left frontal headache. ? COMPARISON: None. ? TECHNIQUE: Noncontrast CT scan of the head was performed. ? FINDINGS: ? Brain: Normal. No intracranial hemorrhage. No significant white ? matter disease. No mass effect. Normal cerebral sulci. ? Ventricles: Unremarkable. No hydrocephalus. ? Vessels: Unremarkable. ? Paranasal sinuses: Clear. No sinus fluid levels. ? Mastoids: Clear. ? Bones: Unremarkable. No fracture or suspicious bone lesions. ? Orbits: Unremarkable ocular globes and retro-orbital fat. ? IMPRESSION: No acute abnormality. ? REPORT SIGNED IN OTHER VENDOR SYSTEM 02/12/2020 ?Reported By: Iron Romero MD ? CC: ? Transcribed Date/Time: 02/12/2020 (1531) ? Import Export Manager: ? Printed Date/Time: 02/12/2020 (1531) ? PAGE 1 ? Signed Report ? Procedure Note Iron Romero MD - 02/12/2020 EXAM: CAT SCAN/HEAD WITHOUT CONTRAST EX. D/ (1520) CLINICAL INFORMATION: left frontal headache INDICATION: left frontal headache. COMPARISON: None. TECHNIQUE: Noncontrast CT scan of the head was performed. FINDINGS: Brain: Normal. No intracranial hemorrhage. No significant white matter disease. No mass effect. Normal cerebral sulci. Ventricles: Unremarkable. No hydrocephalus. Vessels: Unremarkable. Paranasal sinuses: Clear. No sinus fluid levels. Mastoids: Clear. Bones: Unremarkable. No fracture or suspicious bone lesions. Orbits: Unremarkable ocular globes and retro-orbital fat. IMPRESSION: No acute abnormality. REPORT SIGNED IN OTHER VENDOR SYSTEM 02/12/2020 Reported By: Iron Romero MD CC: Transcribed Date/Time: 02/12/2020 (153) Import Export Manager: Printed Date/Time: 02/12/2020 (1531) PAGE 1 Signed Report us Terry Montes DO IMG CT ORDERABLES Final Result * SPEC W/O ORDERS - [facility] (02/12/2020 14:35 EDT) Pathologist [facility] SPEC W/O ORDERS - [facility] SEE NOTE 02/12/2020 15:18 EDT [facility] Comment: ?Emergency Room Specimen(s) without Orders These specimens will be discarded in 4 hours: Gold, green, purple and blue 02/12/2020 14:3 5 EDT 02/12/2020 15:17 EDT Jean Mccarthy MD CHEMISTRY & BLOOD GAS ORDER [place] Final Result [facility] * SPEC W/O ORDERS - [facility] (02/12/2020 14:35 EDT) SPEC W/O ORDERS - [facility] SEE NOTE 02/12/2020 15:15 EDT [facility] Comment: ?Emergency Room Specimen(s) without Orders These specimens will be discarded in 4 hours: 02/12/2020 14:3 5 EDT 02/12/2020 15:15 EDT Jean Mccarthy MD CHEMISTRY & BLOOD GAS ORDER [place] Final Result Performing Organization Address City/[facility]/ZIP Co de Phone Number [facility] documented in this encounter Visit Diagnoses Diagnosis New onset headache- Primary Headache documented in this encounter Discontinued Medications Medication Sig Discontinue Reason Start Date End Da te OLANZapine (ZYPREXA) 5 mg tablet TK 1 T PO QD Patient Stopped Taking 10/17/2019 0 OLANZapine (ZYPREXA) 5 mg tablet TK 1 T PO QD Patient Stopped Taking 10/17/2019 0 documented as of this encounter Care Teams Roofing Layer Relationship Specialty Start Date End Date Alejandrina Carrillo PA-C [address] [place] [address] PCP - General 04/07/19 07/05/20 documented as of this encounter
--- OUTSIDE RECORDS SUMMARY | 2024-12-03 16:06 | XMS_ITS | Encounter Summary ---
Author Organization [facility] Address [address] [place] [address] Care Team Providers Care Labourers Name Role Phone Alejandrina Carrillo PA-C Primary Care Provider +1- [phone] Reason for Visit * Reason Onset Date Comments Medication Management 04/09/2019 Encounter Details Date Type Department Care Team (Late Contact Info) Description 04/09/2019 Telephone [facility] Dermatology 5th [address] [address] Toni Morin MD [address] [place] [address], [address] [place] [phone] Medication Management Social History Tobacco Use Types [...] encounter Miscellaneous Notes * Telephone Encounter - Briseida Ponce - 04/09/2019 1533 EDT Patient states that Dr. Morin was supposed to call in a prescription [facility] a steroid cream to the [facility] in [place] and nothing has been received Patient does not know the name of the prescription documented in this encounter Plan of Treatment Upcoming Encounters Date Type Department Care Team (Late st Contact Info) Description 03/04/2025 14:00 EDT Telemedicine [facility] [address] [place], [place] [address] Brayan Polk MD [address] [facility] [address] [place] [phone] 07/14/2025 14:30 EDT Office Visit [facility] Cancer Center Hematology & Oncology - [address] [address] Evin Maria MD [address] [facility], [address] [place] [address] documented as of this encounter Visit Diagnoses Not on filedocumented in this encounter Care Teams Labourers Relationship Specialty Start Date End Date Alejandrina Carrillo PA-C [address] [place] [address] PCP - General 04/07/19 07/05/20 documented as of this encounter
--- OUTSIDE RECORDS SUMMARY | 2024-12-03 16:06 | XMS_ITS | Encounter Summary ---
Author Organization [facility] Address [address] [place] [address] Care Team Providers Care It Instructor Name Role Phone Alejandrina Carrillo PA-C Primary Care Provider +1- [phone] Encounter Details Date Type Department Care Team (Latest Contact Info) Description 06/09/2019 9:42 EDT - 06/09/2019 23:59 EDT Hospital Encounter [facility] [address] [place] [address] Unknown, Provider, MD Discharge Disposition: Home or [...] on file documented as of this encounter Medications at Time of Discharge augmented betamethasone dipropionate (DIPROLENE-AF) 0.05 % ointment Apply topically to affected area 2 times daily. Do not apply to face, axilla or groin. 45 g 3 04/09/2019 9 diphenhydrAMINE (BENADRYL) 25 mg capsule Take 50 mg by mouth every 4 hours. 9 omeprazole (PRILOSEC) 20 mg capsule Take 20 mg by mouth daily. 9 documented as of this encounter Discharge Disposition Disposition Code Departure Means Destination Home or Self Senior Living documented in this encounter Plan of Treatment Upcoming Encounters Date Type Department Care Team ( st Contact Info) Description 03/04/2025 14:00 EDT Telemedicine [facility] [address] [place] [address] Brayan Polk MD 130 [facility] [address] [place] [phone] 07/14/2025 14:30 EDT Office Visit [facility] Cancer Center Hematology & Oncology - [address] [address] Evin Maria MD [address] [facility], [address] [place] [address] documented as of this encounter Visit Diagnoses Not on filedocumented in this encounter Care Teams It Instructor Relationship Specialty Start Date End Date Alejandrina Carrillo PA-C [address] [place] [address] PCP - General 04/07/19 07/05/20 documented as of this encounter
--- OUTSIDE RECORDS SUMMARY | 2024-12-03 16:06 | XMS_ITS | Encounter Summary ---
Author Organization [facility] Address [address] [place] [address] Care Team Providers Care Warehouse Supervisor Name Role Phone Alejandrina Carrillo PA-C Primary Care Provider +1- [phone] Encounter Details Date Type Department Care Team (Late st Contact Info) Description 04/23/[address] [facility] Radiology Results [address] [place], [place] [id number] Dali Clemente MD [address] [facility] [address] [place] [address] Social History Tobacco Use Types Packs/Day Years [...] Telemedicine [facility] Neurology Clinic [address] [place] [address] Brayan Polk MD [address] [facility] [address] [place] [address] 07/14/2025 14:30 EDT Office Visit [facility] Hematology & Oncology - [address] [place] [address] [place] [address] Evin Maria MD [address] [place] [address], [address] [place] [address] documented as of this encounter Procedures Procedure Name Priority Date/Time Associated Diagnosis Comments DXA BONE DENSITY 04/23/2019 15:5 9 EDT VIT D, 25-HYDROXY - [facility] Routine 04/23/2019 14:21 EDT PTH INTACT Routine 04/23/2019 14:21 EDT COMPREHENSIVE METABOLIC PANEL (CMP) Routine 04/23/2019 14:20 EDT documented in this encounter Results * XR DEXA BONE DENSITY (04/23/2019 15:59 EDT) Anatomical Region Laterality Modality Wrist, Hip, L-spine Other 04/23/2019 15:5 9 EDT Narrative 04/24/2019 14:29 EDT ? EXAM: RADIOLOGY/DXA SCAN/BONE DENSITY ? EX. D/ (1559) ? CLINICAL INFORMATION: ? S82.832G CLOSED FRACTURE OF DISTAL END OF LEFT ? FIBULA WITH DELAYED HEALING, UNSPECIFIED FRACTURE ? MORPHOLOGY, SUBSEQUENT ENCOUNTER ? N95.1 PERIMENOPAUSAL, F17.200 NICOTINE DEPENDENCE ? Indication: postmenopausal; screening for osteoporosis; prior ? fracture; ? Accession number: [id number] ? Clinical Information Provided by Patient: ? Has had a low trauma fracture ? Smokes ? Has used the following medications: HRT (i.e. estrogen/hormone ? therapy) ? Patient maximum height was 66 ? Menopause Age 46 ? Onset of menses at age 10 ? Number of children 0 ? Bone Density: Exam date 04/23/2019 ? Region ?BMD ? . ? (g/cm2) ?? T-score ?? Z-score ?? Classification ? AP Spine(L1-L4) ?1.110 ? 0.6 ? 1.4 ?Normal ? Femoral Neck(Left) ? 0.842 ?-0.1 ? 0.8 ?Normal ? Total Hip(Left) ?0.988 ? 0.4 ? 0.9 ?Normal ? World Health Organization criteria for BMD impression classify ? patients as Normal (T-score at or above -1.0), Osteopenia (T-score ? between -1.0 and -2.5), or Osteoporosis (T-score at or below -2.5). ? 10-year Fracture Risk: ? FRAX not reported because: ? All T-scores for Spine Total, Hip Total, Femoral Neck at or above ? -1.0 ? Impression: The patient has normal bone mass. The patient has risk ? factors, including: smoking, previous fracture. ? Discussion: BONE DENSITY IS ABOVE THE MINIMUM DESIRABLE LEVEL AT ALL ? SKELETAL SITES TESTED. ? This patient's bone mineral density is above the minimum desirable ? level (T-score -1.0 or better) at all sites measured. The patient ? should follow a healthful lifestyle (good nutrition with adequate ? calcium and vitamin D, and appropriate weight-bearing exercise). ? Follow-Up: Consider repeating this study in 5 years or sooner if there ? is some new clinical indication. ? PAGE 1 ? Signed Report ? (CONTINUED) ? Reported by:Mayco on 04/23/2019 2:40:00 PM. ?Reported By: Toni Disla MD ? CC: Dali Clemente MD ? Transcribed Date/Time: 04/24/2019 (4629) ? Milieu Counselor: SAHIL ? Printed Date/Time: 08/12/2019 (7556) ? PAGE 2 ? Signed Report ? Procedure Note Toni Disla MD - 09/29/2019 EXAM: RADIOLOGY/DXA SCAN/BONE DENSITY EX. D/ (8609) CLINICAL INFORMATION: S82.832G CLOSED FRACTURE OF DISTAL END OF LEFT FIBULA WITH DELAYED HEALING, UNSPECIFIED FRACTURE MORPHOLOGY, SUBSEQUENT ENCOUNTER N95.1 PERIMENOPAUSAL, F17.200 NICOTINE DEPENDENCE Indication: postmenopausal; screening for osteoporosis; prior fracture; Accession number: [id number] Clinical Information Provided by Patient: Has had a low trauma fracture Smokes Has used the following medications: HRT (i.e. estrogen/hormone therapy) Patient maximum height was 66 Menopause Age 46 Onset of menses at age 10 Number of children 0 Bone Density: Exam date 04/23/2019 Region BMD . (g/cm2) T-score Z-scoreClassification AP Spine(L1-L4) 1.110 0.6 1.4 Normal Femoral Neck(Left) 0.842 -0.1 0.8 Normal Total Hip(Left) 0.988 0.4 0.9 Normal World Health Organization criteria for BMD impression classify patients as Normal (T-score at or above -1.0), Osteopenia (T-score between -1.0 and -2.5), or Osteoporosis (T-score at or below -2.5). 10-year Fracture Risk: FRAX not reported because: All T-scores for Spine Total, Hip Total, Femoral Neck at or above -1.0 Impression: The patient has normal bone mass. The patient has risk factors, including: smoking, previous fracture. Discussion: BONE DENSITY IS ABOVE THE MINIMUM DESIRABLE LEVEL ATALL SKELETAL SITES TESTED. This patient's bone mineral density is above the minimum desirable level (T-score -1.0 or better) at all sites measured. The patient should follow a healthful lifestyle (good nutrition with adequate calcium and vitamin D, and appropriate weight-bearing exercise). Follow-Up: Consider repeating this study in 5 years or sooner ifthere is some new clinical indication. PAGE 1 Signed Report (CONTINUED) Reported by:FABI/monroe on 04/23/2019 2:40:00 PM. Reported By: Toni Disla MD CC: Dali Clemente MD Transcribed Date/Time: 04/24/2019 (9779) Milieu Counselor: SAHIL Printed Date/Time: 08/12/2019 (2907) PAGE 2 Signed Report Dali Clemente MD IMG DEXA ORDERABLES Fin al Result * VIT D, 25-HYDROXY - [facility] (04/23/2019 14:21 EDT) VIT D, 25 HYDROXY - [facility] 31.0 30 - 100 ng/ml 04/23/2019 15:17 EDT [facility] Comment: ? 25-Hydroxy D Total (D2+D3) ?Expected Values Deficient: ?<20 ng/ml Insufficient: ? 20- <30 ng/ml Sufficient: ? 30-100 ng/ml Potential intoxication: >100 ng/ml 04/23/2019 14:2 1 EDT 04/23/2019 14:21 EDT Narrative [facility] - 04/23/2019 15:17 EDT Does PT Have a Latex Allergy? NO us Dali Clemente MD CHEMISTRY & BLOOD GAS O RDERABLES Final Result Performing Organization Address [facility]/ZIP Co de Phone Number [facility] * PTH INTACT (04/23/2019 14:21 EDT) PTH INTACT ([facility]) - [facility] 44 19 - 88 pg/ml 04/24/2019 16:52 EDT [facility] Comment: Reference range based on normal calcium level. Test performed [place] [address] 04/23/2019 14:2 1 EDT 04/23/2019 14:21 EDT Narrative [facility] - 04/24/2019 16:52 EDT Does PT Have a Latex Allergy? NO us Dali Clemente MD CHEMISTRY & BLOOD GAS O RDERABLES Final Result [facility] * (ABNORMAL) COMPREHENSIVE METABOLIC PANEL (CMP) (04/23/2019 14:20 EDT) Albumin % 4.1 3.4 - 4.9 g/dL 04/23/2019 15:01 [facility] ALKALINE PHOSPHATASE - [facility] 194(H) 38 - 126 U/L 04/23/2019 15:01 [facility] BILIRUBIN TOTAL 0.6 0.2 - 1.3 mg/dL 04/23/2019 15:01 [facility] BUN - [facility] 9(L) 10 - 26 mg/dL 04/23/2019 15:01 [facility] CALCIUM - [facility] 9.6 8.5 - 10.5 mg/dL 04/23/2019 15:01 [facility] Chloride 100 96 - 110 mmol/L 04/23/2019 15:01 [facility] CO2 Total 30 22 - 32 mEq/L 04/23/2019 15:01 [facility] CREATININE 0.65 0.52 - 1.04 mg/dL 04/23/2019 15:01 [facility] eGFR >60 04/23/2019 15:01 [facility] Comment: Chronic renal impairment is defined as GFR <60 Multiply result by 1.210 for patients. eGFR calculated using the IDMS-traceable MDRD Study Equation. ??(effective 09/27/2014) Anion Gap 7 0 - 18 04/23/2019 15:01 [facility] GLUCOSE - [facility] 103(H) 70 - 100 mg/dL 04/23/2019 15:01 [facility] Potassium 4.7 3.5 - 5.0 mEq/L 04/23/2019 15:01 [facility] Sodium 137 136 - 145 mEq/L 04/23/2019 15:01 [facility] TOTAL PROTEIN - [facility] 6.8 6.2 - 8.2 gm/dL 04/23/2019 15:01 [facility] SGOT/AST - [facility] 105(H) 14 - 36 U/L 04/23/2019 15:01 [facility] SGPT/ALT - [facility] 86(H) 9 - 52 U/L 9 15:01 [facility] 04/23/2019 14:2 0 EDT 04/23/2019 14:21 EDT Narrative [facility] - 04/23/2019 15:01 EDT Does PT Have a Latex Allergy? NO us Dali Clemente MD CHEMISTRY & BLOOD GAS O RDERABLES Final Result [facility] documented in this encounter Visit Diagnoses Not on filedocumented in this encounter Care Teams Warehouse Supervisor Relationship Specialty Start Date End Date Alejandrina Carrillo PA-C [address] [place] [address] PCP - General 04/07/19 07/05/20 documented as of this encounter
--- OUTSIDE RECORDS SUMMARY | 2024-12-03 16:06 | XMS_ITS | Encounter Summary ---
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 Per report, found by boyfriend altered and vomiting, complaining of QUINONES. 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 02/16/2020 1003 Posted [facility] OR [facility] Neurosurgery Inpatient C - Less than 4 hours Panel 1 Procedure LRB Anes Op Region Wound Class Comments CRANIECTOMY/CRANIOTOMY, EXPLORATORY;SUPRATENTORIAL Left General Class I/ Clean Surgeon Surgeon Role Service Panel Claus Piña MD Primary Neurosurgery 1 Haile Brown MD Resident - Assisting Neurosurger y 1 documented in this encounter Social History Tobacco [...] Reading Time Taken Comments Blood Pressure 128/72 02/16/2020 1000 EDT Pulse 95 02/14/2020 1627 EDT Temperature 37.7 ??C (99.9 ??F) 02/16/2020 0800 EDT Respiratory Rate 23 02/16/2020 1000 EDT Oxygen Saturation 93% 02/16/2020 1000 EDT Inhaled Oxygen Concentration - - Weight 98.4 kg (217 lb) 02/15/2020 1500 EDT Height 170.2 cm (5' 7) 02/15/2020 1500 EDT Body Mass Index 31.03 02/15/2020 1500 EDT documented in this encounter Functional Status * Are you deaf or do you have serious difficulty hearing? Answer Date of Assessment Author No 02/22/2020 15:00 EDT Danilo Walker RN * Are you blind or do you have serious difficulty seeing, even when wearing glasses? Answer Date of Assessment Author No 02/22/2020 15:00 EDT Danilo Walker RN * Do you have serious difficulty walking or climbing stairs? (5 years old or older) Answer Date of Assessment Author No 02/22/2020 15:00 EDT Danilo Walker RN * Do you have difficulty dressing or bathing? (5 years old or older) Answer Date of Assessment Author No 02/22/2020 15:00 EDT Danilo Walker, AZALEA * Because of a physical, mental, or emotional condition, do you have difficulty doing errands alone such as visiting a doctor's office or shopping? (15 years old or older) Answer Date of Assessment Author No 02/22/2020 15:00 EDT Danilo Walker RN documented as of this encounter Mental Status * Because of a physical, mental, or emotional condition, do you have serious difficulty concentrating, remembering, or making decisions? (5 years old or older) Answer Entry Date Author No 02/22/2020 15:00 EDT Danilo Walker RN documented in this encounter Discharge Summaries [...] *Cerebral venous thrombosis 02/14/2020 ??? Brain herniation ([facility]) 02/17/2020 ??? Cerebral edema ([facility]) 02/17/2020 ??? 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 Principal Procedure: Left sided craniectomy and hematoma evacuation (Dr. Piña, 02/16/20) Hospital Course 50 y.o. woman with a past medical history significant for anxiety/depression and tobacco use disorder who presented to [facility] with headache and [...] occupational therapy. They recommended acute rehab. Per HOD CARRIER advanced to dysphagia 4 diet with thin [...] Disposition Code Departure Means Destination Home-Health Care [facility] Home documented in this encounter Progress Notes * Trish Ponce OT - 03/02/2020 1218 EDT [facility] Rehabilitation Therapy Acute Therapies [facility] - Occupational Therapy Discontinue/Discharge Note Date of [...] able to brush teeth manage task with [id number] instructions. Dressing: provded patient with pants as [...] setting. GOALS: Short Term Goals: n/a ?? Computer Network Specialist Goals:- discontinue goals in this setting Shelter Goals Time Frame: 2-3 weeks Computer Network Specialist Goal 1 Goal: patient will consistently follow 2 step instructions with min cues Computer Network Specialist Goal 2 Goal: Patient will consistently be oriented x3 with use of visual aid Shelter Goal 3 Goal: Patient will demonstrate proper safety awareness with self-care task with min cues Shelter Goal 4 Goal: Patient will complete upper body self-care with supervision Shelter Goal 5 Goal: Patient will complete lower body self-care tasks with min cues Computer Network Specialist Goal 6 Goal: Patient will complete toilet/commode transfer with supervision PLAN: Discontinue occupational therapy at [facility] acute care. Recommended Discharge Destination: Acute rehabilitation Recommended Discharge Services: Occupational therapy at rehabilitation facility Recommended Discharge Equipment: To be determined by next care provider Pager: [phone] TRISH PONCE OT, 03/02/2020, 12:19 * Evelyn Galindo, PT - 03/02/2020 1017 EDT [facility] Rehabilitation Therapy Acute Therapies [facility] Physical Therapy Discontinue/Discharge Note Date of Service: [...] other consults recommended at this time Pager: [phone] Evelyn Galindo, PT 03/02/2020 10:17 * Kisha Prasad RN - 03/02/2020 0944 EDT [facility] Inpatient Acute Rehabilitation Unit Pre-Admission Screening Name: Ynes White : 1970 Age: 50 y.o. Sex: female Payer: Medicaid Rehab Admission Date: 03/02/2020 Rehab Unit: Rehab 2 From: [id number] Arriving via [facility] Time: 1300 Height: 170.2 cm (67) [...] Support System: Lives in an apartment in [place], [place] Services prior to admission: none Prior [...] family support and home health nursing PT,OT, HOD CARRIER. Physician Agreement: Co-signature of this note indicates [...] Center Inpatient Acute Rehabilitation Unit on the [facility] Eligible: Patient is determined to be Eligible for an Acute Inpatient Rehabilitation level of care based on his/her payer criteria Patient has accepted bed offer at the Acute Inpatient Rehabilitation Unit at [facility], located on the [facility]. Refer to IP Rehab Pre-Admission Assessment Note in Inpatient Rehabilitation Medical record for further details. Rehab Admission Date: 03/02/2020 Transportation: [facility] Rehab Admission Time: 1300 Rehab Floor/Number for Report: Rehab 2 ([id number]) * Abena Haskins - 03/02/2020 0924 EDT CAREER CENTER ADVISOR DISCHARGE NOTE: DISCHARGE DATE/TIME: Today 03/[address] OF DISCHARGE: [facility] Acute Rehab MODE OF TRANSPORT: [facility] SIGNED (Y/): n/a FORMS ON CHART (Y/N): COL ACCEPTING MD AND NUMBER: Carmenanjul AZALEA REPORT/UNIT: Rehab 2, call [phone] PATIENT AWARE AND IN AGREEMENT OF PLAN: yes FAMILY NOTIFIED (IF APPLICABLE- Y/N): yes, I spoke to sister Stacey vences and she will contact brother Ken, boyfriend Ever and other family. Stacey vences is happy with plan. DEWAXER/CHARGE/MD NOTIFIED (Y/N): yes Licha Haskins RN CM #[id number] * Kevin Rinaldi MD - 03/02/2020 0532 [...] Gaze conjugate Pupils equal, round, reactive EOMI Stacker, biceps full bilaterally Quads, hamstrings, gastrocs full [...] checks SBP <160 Appreciate hematology recommendation Appreciate HOD CARRIER recommendations Goal Na normonatremia, daily labs Lovenox 90 BID PT/OT Floor, will work toward dispo to Acute Rehab, likely ready today Kevin Rinaldi MD 03/02/2020 5:32 Page 5446 with questions Cosigned by Jerry Merrill MD at 03/02/2020 10:10 EDT * Trish Ponce, OT - 03/01/2020 1522 EDT [facility] Rehabilitation Therapy Acute Therapy [facility] Occupational Therapy Contact Note Date of Service: [...] PRASAD RN 03/01/2020 12:57 * Isabell Lora CCC-HOD CARRIER - 03/01/2020 1234 EDT Speech-Language Pathology Clinical Swallow and Cognitive-Communication Consultation HOD CARRIER Diagnosis: Aphasia and Dysphagia, oropharyngeal phase Medical Diagnosis: Cerebral venous thrombosis and resultant intraparenchymal hemorrhage in the leftfrontotemporal area Date of Onset: 02/14/20 Date of Referral: 02/14/20 Date of Service: 03/01/2020 Start Time: 10:45 Total Therapy minutes: 10 minutes Swallow; 20 minutes Communication tx SUBJECTIVE: I don't understand what you are saying. OBJECTIVE: HOD CARRIER returns today to provide further diagnostic/therapeutic intervention [...] was able to self administer items without HOD CARRIER assistance using a straw, her fingers and [...] with pictures and gestures. Functional Communication Measures ([place] Speech- Language- Hearing Association, 2002). The Functional Communication Measures (FCM???s) are a series of 7 point rating scales, ranging fromleast functional (Level 1) to most functional (Level 7). They have been developed by [facility] to describe different aspects of patient???s functional communication and swallowing abilities over the course of HOD CARRIER intervention. Spoken Language Comprehension Level 2: With [...] Patient will continue to benefit from further HOD CARRIER intervention in this setting to address dysphagiamanagement [...] comprehension of non-contextual information is a barrier HOD CARRIER follow-up: Patient will continue to be followed while on Acute Care. Please page the #[phone] if the patient's needs require more immediate HOD CARRIER intervention. Discharge Plan: Recommend Acute Multidisciplinary Rehabilitation Program. Isabell Lora [facility]-HOD CARRIER #[id number] 03/01/2020 Speech Language Pathologist Pager # [phone] (Float HOD CARRIER Department) * Kevin Rinaldi MD - 03/01/2020 8428 EDT Neurosurgery Progress Note Problems/ Left transverse [...] Gaze conjugate Pupils equal, round, reactive EOMI Stacker, biceps full bilaterally Lift legs off bed, [...] checks SBP <160 Appreciate hematology recommendation Appreciate HOD CARRIER recommendations Goal Na normonatremia, daily labs Lovenox 90 BID PT/OT Floor, will work toward dispo to Acute Rehab Kevin Rinaldi MD 03/01/2020 8:22 Page 2024 with questions Cosigned by Juan C Hoskins MD at 03/01/2020 13:50 EDT Associated attestation - Juan C Hoskins MD - 03/01/2020 1350 EDT Neurosurgery Staff I have seen and examined this patient. I reviewed the patient's history and exam with the Neurosurgery Resident. I agree with the findings, assessment and treatment plan as documented in the resident's note. BT * Isabell Lora CCC-HOD CARRIER - 02/29/2020 6182 EDT Speech-Language Pathology Clinical Swallow and Cognitive-Communication Consultation HOD CARRIER Diagnosis: Aphasia and Dysphagia, oropharyngeal phase Medical [...] appropriate phrases intermixed with word salad. OBJECTIVE: HOD CARRIER returns today to provide further diagnostic/therapeutic intervention [...] was able to self administer item without HOD CARRIER assistance using a straw. Oral Phase Findings: [...] with pictures and gestures. Functional Communication Measures ([place] Speech- Language- Hearing Association, 2002). The Functional Communication Measures (FCM???s) are a series of 7 point rating scales, ranging fromleast functional (Level 1) to most functional (Level 7). They have been developed by [employer] to describe different aspects of patient???s functional communication and swallowing abilities over the course of HOD CARRIER intervention. Spoken Language Comprehension Level 2: With [...] Patient will continue to benefit from further HOD CARRIER intervention in this setting to address dysphagiamanagement [...] comprehension of non-contextual information is a barrier HOD CARRIER follow-up: Patient will continue to be followed while on Acute Care. Please page the #[phone] if the patient's needs require more immediate HOD CARRIER intervention. Discharge Plan: Recommend Acute Multidisciplinary Rehabilitation Program. NICK LutzHOD CARRIER #[id number] 02/29/2020 Speech Language Pathologist Pager # [phone] [facility] * Jamie Cisse - 02/29/2020 1411 [...] at 02/29/2020 1414 Last data filed at 02/28/2020 2048 Gross per 24 hour Intake 300 ml [...] skin Jamie Cisse, MS RD CD Pager: [phone] * Matteo Carlin RN - 02/29/2020 0875 EDT Acute Inpatient Rehabilitation Rehab Referral Review [...] will be medically ready or discharge to [place] Therapies are recommending Acute Rehab. Physiatry has been consulted 02/26/[address] Rutherford's note Follow-up Plan: Will continue to follow. MATTEO CARLIN RN 02/29/2020 12:55 * Evelyn Galindo, PT - 02/29/2020 1010 EDT [facility] Rehabilitation Therapy Acute Therapies [facility] Physical Therapy Encounter Note Date [...] other consults recommended at this time Pager: [phone] Evelyn Galindo, PT 02/29/2020 10:10 * Angie Hassan - 02/29/2020 1004 EDT CM following. Dana PERLA following. Dr Rutherford assessed. Plan for d/c to Acute Rehab when medically stable. Angie Hassan RN/[facility] #[id number] Covering cm Sarah today. * Damon Eckert MD - 02/29/2020 0748 EDT Neurosurgery Progress Note Problems/ Left transverse [...] Gaze conjugate Pupils equal, round, reactive EOMI Stacker, biceps full bilaterally Lift legs off bed, [...] checks SBP <160 Appreciate hematology recommendation Appreciate HOD CARRIER recommendations Goal Na normonatremia, daily labs Lovenox 40 mg qhs Full anticoag today PT/OT Floor, will work toward dispo to Acute Rehab Damon Eckert MD 02/29/2020 7:48 Page 2279 with questions Cosigned by Jerry Merrill MD at 02/29/2020 14:58 EDT Associated attestation - Jerry Merrill MD - 02/29/2020 6548 EDT Neurosurgery Staff Patient seen and independently examined. I have reviewed history, pertinent exam findings, and relevant imaging with the resident and agree with the resident note, with the following additions/amendments: Stable receptive aphasia. Incision benign. Dixie. Cheo Merrill MD Neurosurgery * Damon Eckert MD - 02/28/2020 4966 EDT Neurosurgery Progress Note Problems/ Left transverse [...] Gaze conjugate Pupils equal, round, reactive EOMI Stacker, biceps full bilaterally Lift legs off bed, [...] checks SBP <160 Appreciate hematology recommendation Appreciate HOD CARRIER recommendations Goal Na normonatremia, daily labs Lovenox 40 mg qhs Full anticoag on 03/01 PT/OT Floor, will work toward dispo to Acute Rehab - timing of discharge pending Damon Eckert MD 02/28/2020 9:28 Page 1842 with questions Cosigned by Jerry Merrill MD [...] round, reactive EOMI Full strength in bilateral senior solutions engineer, biceps, triceps Full strength in gastrocs, quad [...] checks SBP <160 Appreciate hematology recommendation Appreciate HOD CARRIER recommendations Goal Na normonatremia, daily labs Lovenox 40 mg qhs Full anticoag on 03/01 PT/OT Floor, will work toward dispo to Acute Rehab - timing of discharge pending Damon Eckert MD 02/27/2020 11:39 Page 1623 with questions Cosigned by Jerry Merrill MD at 02/27/2020 14:11 EDT * Kassandra Francis, [facility]-HOD CARRIER - 02/26/2020 7961 EDT Speech-Language Pathology Contact Note HOD CARRIER returned to provide dysphagia and cognitive communication intervention. Pt was asleep. Attempted to wake patient. She opened her eyes but did not move, and said, Not now. Comments/Considerations: Speech-Language Pathologist to continue to follow Kassandra Francis CCC-HOD CARRIER 02/26/2020 14:58 Fridays: Pager #[phone] HOD CARRIER Acute Care Pgr #[phone] * Abena Haskins - 02/26/2020 1231 EDT Case Management Note Pt is candidate for Acute Rehab at [facility]. Heme is recommending IV heparin infusion over weekend. Then Lovenox to coumadin bridge. [place] will revaluate on Saturday to see if patient is appropriate for their program. Dr. Rutherford will meet with patient today. Licha Haskins RN CM #[id number] * Kisha Prasad RN - 02/26/2020 1215 EDT Acute Inpatient Rehabilitation Rehab Referral Review [...] 12:04 * Trish Ponce OT - 02/26/2020 1134 EDT [facility] Rehabilitation Therapy Acute Therapies [facility] [place] - Occupational Therapy Encounter Note Date of [...] able to brush teeth manage task with [id number] instructions. Dressing: provded patient with pants as [...] be determined by next care provider Pager: [phone] TRISH PONCE OT, 02/26/2020, 11:35 * Frank [...] oz) Data Review: Labs: CBC: Recent Labs 02/24/2055702/25/2061702/26/20 0751 WBC 8.14 8.98 9.19 HGB 10.8* 11.3* 10.9* HCT 31.7* 32.8* 31.6* MCV 97 95 97 PLT 326 365 376 Incorrect component name entered: ABS NEUTROPHILS BMP: Recent Labs 02/24/2055702/25/2061702/26/20 0751 CREATININE 0.42* 0.45* 0.47* BUN 17 16 16 NA 136 137 135* K 3.6 3.9 3.9 CL 107 107 105 CO2 22 23 25 PHOS 3.8 3.9 4.0 MG 2.0 2.0 1.9 Coags: Recent Labs 02/24/2055702/25/2018 02/26/20 0751 PROTIME 13.5* 13.3 12.8 INR [...] Dr.Adrianzen Frank Hardwick MD PGY4 Hematology/Oncology pager [phone]. Cosigned by Aron Betancourt MD at 02/26/2020 14:15 EDT Associated attestation - Aron Betancourt MD - 02/26/2020 9425 EDT Based on the recommendations from the [facility] in the setting of the COVID19 [...] Ramirez MD * Jamie Cisse - 02/26/2020 0938 EDT Nutrition Reassessment: ?? Medical Summary: Ynes [...] Intake/Output Summary (Last 24 hours) at 02/26/2020 0966 Last data filed at 02/25/2020 1839 Gross [...] skin Jamie Cisse, MS RD CD Pager: [phone] * Kevin Rinaldi MD - 02/26/2020 0500 [...] and lower extremities Full strength in bilateral senior solutions engineer, biceps, triceps Full strength in gastrocs bilaterally [...] checks SBP <160 Appreciate hematology recommendation Appreciate HOD CARRIER recommendations Goal Na normonatremia, daily labs Lovenox 40 mg qhs Will discuss timing of therapeutic anticoagulation PT/OT Floor, will work toward dispo to Acute Rehab Kevin Rinaldi MD 02/26/2020 5:00 Page 2696 with questions Cosigned by Dane Mcwilliams MD at 02/26/2020 9:06 EDT * Evelyn Galindo, PT - 02/25/2020 1121 EDT [facility] Rehabilitation Therapy Acute Therapies [facility] Physical Therapy Encounter Note Date [...] other consults recommended at this time Pager: [phone] Evelyn Galindo, PT 02/25/2020 11:22 * Trenton Marlow MD - 02/25/2020 1004 EDT Neurosurgery Progress Note Problems/ Left transverse venous sinus thrombosis with intracerebral hemorrhage Midline Shift Brain compression Encephalopathy Procedures/ Left sided craniectomy and hematoma evacuation (Penar, 02/16/20) 24/ Temp: [36.2 ??C (97.2 ??F)-37 ??C (98.6 ??F)] () PT/OT recommending acute rehab HOD CARRIER noting continued lack of content in speech [...] checks SBP <160 Appreciate hematology recommendation Appreciate HOD CARRIER recommendations Goal Na normonatremia, daily labs Repeat head CT if neuro decline Lovenox 40 mg qhs Considering repeat CTV PT/OT Floor, dispo planning Trenton Marlow MD 02/25/2020 10:04 Page 6568 with questions Cosigned by Christian Conley MD [...] or concerns. Moraima Munguia MD Neurology PGY-4 #[id number] (#0047 afterhours and weekends) Cosigned by Socorro Soto DO at 02/25/2020 15:48 EDT * Mary Clarke, PT - 02/24/2020 1530 EDT [facility] Rehabilitation Therapy Acute Therapy [facility] [place] Physical Therapy Encounter Note Date of Service: [...] after treatment and visibally uncomfortable. Objective Time: 5179-1218 Total Treatment Time (minutes): 15 Timed Code [...] RLE, though following directions better today. Pat jimmie fatigued during visit today and declining further [...] During therapy session, After therapy session By: [id number] communication About Patient Status and Referrals: Patient [...] in AM. RN reporting patient mobilized to reclinerchair twice today and was more compliant this [...] 15:31 * Trish Ponce OT - 02/24/2020 6329 EDT [facility] Rehabilitation Therapy Acute Therapy [facility] Occupational Therapy Initial Evaluation Note Date of [...] sinus thrombosis [G08]. The patient lives at [address] [place] [address] General Information Hand Dominance: Comment(patient unable to state) History of Present Illness/Injury Current Illness / Injury: Per MD H&P note:Ynes White is a 50 y.o. female with a PMHx significant for smoking who presents with a cerebral venous thrombosis and resultant intraparenchymal hemorrhage in the left frontotemporal area. 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 Goals: Short Term Goals: n/a Computer Network Specialist Goals: Shelter Goals Time Frame: 2-3 weeks Shelter Goal 1 Goal: patient will consistently follow 2 step instructions with min cues Shelter Goal 2 Goal: Patient will consistently be oriented x3 with use of visual aid Computer Network Specialist Goal 3 Goal: Patient will demonstrate proper safety awareness with self-care task with min cues Computer Network Specialist Goal 4 Goal: Patient will complete upper body self-care with supervision Computer Network Specialist Goal 5 Goal: Patient will complete lower body self-care tasks with min cues Shelter Goal 6 Goal: Patient will complete toilet/commode [...] provider TRISH PONCE OT, 02/24/2020, 15:20 Pager: [phone] * Cecelia Azevedo MS CCC-HOD CARRIER - 02/24/2020 1349 EDT Speech-Language Pathology Clinical Swallow and Cognitive-Communication Consultation HOD CARRIER Diagnosis: Aphasia and Dysphagia, oropharyngeal phase Medical [...] per SICU. CT HEAD WO CONTRAST (Order [id number]) Status: Final result (Exam End: 02/22/2020 21:02) [...] of Delivery: All items were administered by HOD CARRIER using a spoon, cup and straw. Oral Phase Findings: Patient presents with oral phase deficits characterized by : ?? Reduced coordination ?? Right anterior bolus loss Pharyngeal Phase: Patient presents with pharyngeal phase dysphagia signs/deficits as suggested by :Slight delay with audible swallows Cough x1 with thin via cup sip Esophageal Phase: No signs indicated Compensatory Strategies: [place] thick liquids Water -Thin via TSP Current [...] straw with no overt s/s of aspiration. HOD CARRIER needed to control size of bolus by pinching straw. 02/24/20: Patient tolerated thin liquids via straw with no overt s/s of aspiration. HOD CARRIER did not need to pinch straw, patient [...] 30%, ELIAS - 0/7, Months of year 0 Complex ideational material 0/2 Limited participation. 02/24/20: [...] rough vocal qualitys/p extubation. Functional Communication Measures ([place] Speech- Language- Hearing Association, 2002). The Functional Communication Measures (FCM???s) are a series of 7 point rating scales, ranging fromleast functional (Level 1) to most functional (Level 7). They have been developed by [employer] to describe different aspects of patient???s functional communication and swallowing abilities over the course of HOD CARRIER intervention. Spoken Language Comprehension Level: 2 Level [...] Patient will continue to benefit for further HOD CARRIER intervention in this setting to address dysphagia [...] comprehension of non-contextual information is a barrier HOD CARRIER follow-up: Patient will continue to be followed while on Acute Care. Please page the #[phone] if the patient's needs require more immediate HOD CARRIER intervention. Discharge Plan: Recommend Acute Multidisciplinary Rehabilitation Program. CECELIA AZEVEDO MS CCC-HOD CARRIER 02/24/2020 13:49 Cecelia Azevedo MS, CCC-HOD CARRIER Speech Language Pathologist Pager #[phone] (Saturday - Saturday [phone]) Pager # [phone] ([facility] HOD CARRIER Department) * Frank Hardwick MD - 02/24/2020 [...] name entered: ABS NEUTROPHILS BMP: Recent Labs 02/22/2022802/23/20 0542 02/23/20 1433 02/23/20 2135 02/24/20 0558 CREATININE [...] this interval not displayed. Coags: Recent Labs 02/22/2022802/23/2054102/24/20 0558 PROTIME 14.3* 14.9* 13.5* INR 1.2* [...] Dr.Adrianzen Frank Hardwick MD PGY4 Hematology/Oncology pager [phone]. Cosigned by Aron Betancourt MD at 02/24/2020 12:29 EDT * Abena Haskins - 02/24/2020 1101 EDT Case Management Note I spoke to Kisha Prasad,PT at Acute Rehab [facility]. She has questions about patient's cognition and ability/willingness to participate in program. Isabell has a 1:1 sitter for impulsivity and safety presence. I met with Ynes at bedside and she was pleasant and agreeable. Verbalized that she wants to go to Rehab and wants to get better. With Isabell's permission I called her sister Lucille, she is also in agreement with AR at [facility]. I shared with Lucille that Isabell is [...] Lucille would like to be first contact [phone]. I reported back above info to Kisha. 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 Expansion of IPH on 02/15 emergent craniectomy and clot removal. Living Arrangements: Apartment in [place], [place] (limited data) Brother/sister listed on tx team sticky note, Friend Ever listed as another contact. Current Functional Status: Min Ax2 for safety. Patient/Caregiver Education: Reviewed clinical documentation in Epic. Social Supports/Discharge Plan: unclear, spoke with Yehuda [...] Patient did participate in PT on 02/18. HOD CARRIER is recommending Acute Rehab. Patient does clearly [...] will continue to follow daily. ??? Rehab Groundman to Consult and follow. ??? Thank you. [...] 0930 EDT [facility] Rehabilitation Therapy [facility] Therapy [facility] Physical Therapy Contact Note Date of Service: 02/24/2020 PT treatment attempted this morning; OT had just left room and per discussion, patient had just returned to bed and declined OT treatment. PT to follow up this afternoon vs later this week for treatment as indicated. Mary Clarke, PT 02/24/2020 9:30 * Trish Ponce, OT - 02/24/2020 0917 EDT [facility] Rehabilitation Therapy [facility] Therapy [facility] Occupational Therapy Contact Note Date of Service: [...] floor without any head trauma Evaluated by HOD CARRIER - diet upgraded Exam stable Na 137 [...] reactive Smile symmetric Follows simple commands x4 Stacker, biceps, triceps full bl IP full bl [...] checks SBP <160 Appreciate hematology recommendation Appreciate HOD CARRIER recommendations - Dysphagia 4 diet with thin liquids Goal Na normonatremia, daily labs Repeat head CT if neuro decline Lovenox 40 mg qhs, favor holding off on full anticoagulation until 10 days postop (02/26/20) PT/OT Floor, dispo planning Damon Eckert MD 02/24/2020 5:33 Page 4125 with questions Cosigned by Dane Mcwilliams MD at 02/24/2020 8:37 EDT * Cecelia Azevedo MS [facility]-HOD CARRIER - 02/23/2020 9877 EDT Speech-Language Pathology Clinical Swallow and Cognitive-Communication Consultation HOD CARRIER Diagnosis: Aphasia and Dysphagia, oropharyngeal phase Medical Diagnosis: Cerebral venous thrombosis and resultant intraparenchymal hemorrhage in the leftfrontotemporal area Date of Onset: 02/14/20 Date of Referral: 02/14/20 Date of Service: 02/15/2020 Start Time: 1350 Total Therapy minutes: 25 min ( 15 minutes Swallow; 10 minutes Communication evaluation) SUBJECTIVE: No, not right now, I just can't during HOD CARRIER probes with communication. OBJECTIVE: History: Per Dr. [...] per SICU. CT HEAD WO CONTRAST (Order [id number]) Status: Final result (Exam End: 02/22/2020 21:02) [...] of Delivery: All items were administered by HOD CARRIER using a spoon, cup and straw. Oral Phase Findings: Patient presents with oral phase deficits characterized by : ?? Reduced coordination ?? Right anterior bolus loss Pharyngeal Phase: Patient presents with pharyngeal phase dysphagia signs/deficits as suggested by :Slight delay with audible swallows Esophageal Phase: No signs indicated Compensatory Strategies: [place] thick liquids Water -Thin via TSP Current [...] in vocal quality over time): 3 Source(s): Richyhi et al. (2010); Hirano (1981) Verbal Expression: [...] straw with no overt s/s of aspiration. HOD CARRIER needed to control size of bolus by [...] rough vocal qualitys/p extubation. Functional Communication Measures ([place] Speech- Language- Hearing Association, 2002). The Functional Communication Measures (FCM???s) are a series of 7 point rating scales, ranging fromleast functional (Level 1) to most functional (Level 7). They have been developed by [employer] to describe different aspects of patient???s functional communication and swallowing abilities over the course of HOD CARRIER intervention. Spoken Language Comprehension Level: 2 Level [...] Patient will continue to benefit for further HOD CARRIER intervention in this setting to address dysphagia [...] comprehension of non-contextual information is a barrier HOD CARRIER follow-up: Patient will continue to be followed while on Acute Care. Please page the #[phone] if the patient's needs require more immediate HOD CARRIER intervention. Discharge Plan: Acute Multidisciplinary Rehabilitation Program. 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 Midline Shift Brain compression Encephalopathy Procedures/ Left sided craniectomy and hematoma evacuation ([facility], 02/16/20) 24/ Temp: [36.6 ??C (97.9 ??F)-36.9 [...] checks SBP <160 Appreciate hematology recommendation Appreciate HOD CARRIER recommendations Goal Na normonatremia, q8h Na checks Repeat head CT if neuro decline Floor Kevin Rinaldi MD 02/23/2020 4:30 Page 5977 with questions Cosigned by Christian Conley MD at 02/23/2020 9:38 EDT * Cecelia Azevedo, [facility]-HOD CARRIER - 02/22/2020 1904 EDT Speech-Language Pathology Contact Note HOD CARRIER returns today to provide diagnostic/therapeutic intervention for dysphagia. Patient lying in bed with lunch tray bedside. Patient refused dysphagia treatment to assess for potential upgrade despite much encouragement from HOD CARRIER and RN. Please refer to the following [...] return within 24 hours. Cecelia Azevedo MS, CCC-HOD CARRIER Speech Language Pathologist Pager #[phone] (Saturday - Saturday [phone]) Pager # [phone] ([facility] HOD CARRIER Department) CECELIA AZEVEDO MS CCC-HOD CARRIER 02/22/2020 15:25 * Socorro Soto DO - 02/22/2020 1246 EDT [facility] NEUROLOGY PROGRESS NOTE PATIENT NAME: Ynes White [...] 235 256 BMP: Recent Labs 02/20/20 0648 02/21/20232 01/29/20 1252 02/21/20 2151 02/22/209 NA 142 < > 138 137 146* [...] not displayed. Coags: Recent Labs 02/20/20 0648 02/21/202 02/22/20228 PROTIME 13.1 12.7 14.3* INR 1.1 1.1 [...] over the left hemisphere. 2. 2 mm vuzr-mq-jwktx midline shift. CTA HEAD NECK 02/14/2020 IMPRESSION [...] hemorrhage in the left frontotemporal area. 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 Soto. Anjelica Molina DO Neurology PGY-3 Pager [phone] ([phone] nights and weekends) 02/22/20 12:57 NEUROLOGY [...] MATTEO CARLIN RN 02/22/2020 11:44 * Susana Arredondo RD - 02/22/2020 1107 EDT Nutrition Reassessment: [...] Weight: 98.4 kg 02/14, BMI 34 kg/m2 [place] Body Weight (IBW): 61 kg Adjusted weight: [...] 6 pm and 9 pm. Weigh pt. STIVEN Ness Dietitian Pager: [phone] * Mary Clarke, PT - 02/22/2020 4177 EDT [facility] Rehabilitation Therapy Acute Therapy [facility] [place] Physical Therapy Encounter Note Date of Service: [...] Adult Nonverbal Pain ScaleTotal: 4 Objective Time: 4727-2994 Total Treatment Time (minutes): 25 Timed Code [...] therapy session, Prior to therapy session By: [id number] communication About Patient Status and Referrals: Patient [...] determined by next provider Primary Therapist: Pager: [phone] Mary Clarke, PT 02/22/2020 9:25 * Trish Ponce, OT - 02/22/2020 0918 EDT [facility] Rehabilitation Therapy Acute Therapy [facility] Occupational Therapy Contact Note Date of Service: [...] Procedures/ Left sided craniectomy and hematoma evacuation ([facility], 02/16/20) 24/ Temp: [36.8 ??C (98.2 ??F)-37.3 [...] checks SBP <140 Appreciate hematology recommendation Appreciate HOD CARRIER recommendations Goal Na ~140, q8h Na checks Repeat head CT if neuro decline Order helmet ASHLEIGH PATEL MD 02/22/2020 6:44 Page 4286 with questions Cosigned by Juan C Hoskins MD at 02/22/2020 17:33 EDT Associated attestation - Juan C Hoskins MD - 02/22/2020 3629 EDT Neurosurgery Staff I have seen and examined this patient. I reviewed the patient's history and exam with the Neurosurgery Resident. I agree with the findings, assessment and treatment plan as documented in the resident's note. Stable BT * Isabell Montenegro OT - 02/21/2020 0937 EDT [facility] Rehabilitation Therapy Acute Therapy [facility] Occupational Therapy Contact Note Date of Service: 02/21/2020 OT continues to follow pt. Pt with elevated SBP this AM in 140's-160's range. Goal SBP <140. Will defer OT evaluation at this time. OT will plan to follow-up as appropriate tomorrow. Isabell Montenegro OT, 02/21/2020, 9:37 * Cecelia Rosario DO - 02/21/2020 0904 EDT [facility] NEUROLOGY PROGRESS NOTE PATIENT NAME: Ynes White [...] movements. Gait: Deferred. LABORATORY: CBC: Recent Labs 02/19/2041702/20/2064702/21/20231 WBC 7.94 9.74 9.46 RBC 3.30* 3.22* 3.28* HGB 11.0* 10.8* 10.9* HCT 32.7* 33.0* 33.2* MCV 99* 103* 101* MCH 33.3 33.5* 33.2 MCHC 33.6 32.7 32.8 PLT 150 229 235 BMP: Recent Labs 02/19/2041702/20/2064702/20/20 1426 02/20/20211702/21/20231 NA 144 < > 142 140 138 [...] this interval not displayed. Coags: Recent Labs 02/19/2041702/20/2064702/21/20231 PROTIME 15.0* 13.1 12.7 INR 1.3* 1.1 [...] over the left hemisphere. 2. 2 mm bjrj-yx-lvlfc midline shift. CTA HEAD NECK 02/14/2020 IMPRESSION [...] hemorrhage in the left frontotemporal area. 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 COST ANALYST hormone replacement therapy (estradiol-norethindrone), family history of [...] IR - Enoxaparin for DVT prophylaxis - PT/OT/HOD CARRIER - Consider repeat CTV, likely next week Cecelia Rosario DO Department of Neurology, PGY3 Pager #[phone] (#[phone] on nights and weekends) 02/21/2020 9:04 Cosigned [...] Center * Trenton Marlow MD - 02/21/2020 0743 EDT Neurosurgery Progress Note Problems/ Left transverse [...] checks SBP <140 Appreciate hematology recommendation Appreciate HOD CARRIER recommendations Goal Na ~140, will restart hypertonics if next lab check <[address] if neuro decline Order helmet Trenton Marlow MD 02/21/2020 7:43 Page [phone] with questions Cosigned by Juan C Hoskins [...] [facility] Rehabilitation Therapy Acute Therapy [facility] Occupational Therapy Contact Note Date of Service: 02/20/2020 OT referral received, chart reviewed. OT checked in with nursing and nursing requested deferral dueto heart rate being difficult to control and needing a new IV. OT will f/u this afternoon if time allows or see patient in 1-2 days. Katiana Hall OT, 02/20/2020, 10:20 * Michelet Paz MD - 02/20/2020 0905 EDT [facility] NEUROLOGY PROGRESS NOTE PATIENT NAME: Ynes White [...] commands. Gait: Deferred. LABORATORY: CBC: Recent Labs 02/18/2054302/19/2041702/20/20 0648 WBC 6.87 7.94 9.74 RBC 3.50* 3.30* 3.22* HGB 12.3 11.0* 10.8* HCT 34.9 32.7* 33.0* MCV 100* 99* 103* MCH 35.1* 33.3 33.5* MCHC 35.2 33.6 32.7 PLT 142 150 229 BMP: Recent Labs 02/18/20 0544 02/19/208 02/19/20 1412 02/19/20 2125 02/20/20 0648 NA [...] this interval not displayed. Coags: Recent Labs 02/18/2054302/19/2041702/20/20 0648 PROTIME 13.2 15.0* 13.1 INR 1.1 [...] over the left hemisphere. 2. 2 mm myuv-ib-miynj midline shift. CTA HEAD NECK 02/14/2020 IMPRESSION [...] hemorrhage in the left frontotemporal area. 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 COST ANALYST hormone replacement therapy (estradiol-norethindrone), family history of [...] IR - Enoxaparin for DVT prophylaxis - PT/OT/HOD CARRIER - Consider repeat CTV, likely next week Cecelia Rosario DO Department of Neurology, PGY3 Pager #[phone] (#[phone] on nights and weekends) 02/20/2020 9:05 Attestation statement: I saw and examined the patient with the resident on 02/20/2020. I agree withthe findings and plan of care documented in the resident's note. 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 Midline Shift Brain compression Encephalopathy Procedures/ Left sided craniectomy and hematoma evacuation ([facility], 02/16/20) 24/ Temp: [36.8 ??C (98.2 ??F)-37.6 ??C (99.7 ??F)] () Drain removed Extubated to room air Sodium acetate stopped for Na >140 SICU signed off HOD CARRIER recommended dysphagia II diet with NT liquids, [...] per heme recs Appreciate hematology recommendation Appreciate HOD CARRIER recommendations Goal Na ~140 Trenton Marlow MD 02/20/2020 7:27 Page 5074 with questions Cosigned by Juan C Hoskins [...] 10days post craniotomy BT * Kassandra Francis, CCC-HOD CARRIER - 02/19/2020 1222 EDT Speech-Language Pathology Clinical Swallow and Cognitive-Communication Re-Evaluation HOD CARRIER Diagnosis: Aphasia and Dysphagia, oropharyngeal phase Medical [...] tablet 1,000 mg 1,000 mg oral Q6H DParag Ghotra MD 1,000 mg at 02/19/20 0318 Or [...] mcg/100 mL infusion 0.2-1.4 mcg/kg/hr intravenous CONTINUOUS Parag Eid MD Stopped at 02/19/20 0753 ??? [...] patch 1 Patch 1 Patch transdermal Q24H Cecelia Rosario DO Stopped at 02/19/20 0823 ??? ondansetron [...] of Delivery: All items were administered by HOD CARRIER using a spoon, cup and straw. Oral Phase Findings: Patient presents with oral phase deficits characterized by : ?? Reduced coordination ?? Right anterior bolus loss Pharyngeal Phase: Patient presents with pharyngeal phase dysphagia signs/deficits as suggested by :Slight delay with audible swallows Cough x1 with thin via cup sip Esophageal Phase: No signs indicated Compensatory Strategies: [place] thick liquids Water -Thin via TSP Current [...] time): 3 Source(s): Yvrose et al. (2010); Chadwick (1981) Verbal Expression: Confrontation Naming: .5/3 - [...] vocal quality s/p extubation. Functional Communication Measures ([place] Speech- Language- Hearing Association, 2002). The Functional Communication Measures (FCM???s) are a series of 7 point rating scales, ranging fromleast functional (Level 1) to most functional (Level 7). They have been developed by [employer] to describe different aspects of patient???s functional communication and swallowing abilities over the course of HOD CARRIER intervention. Spoken Language Comprehension Level: 2 Level [...] Patient will continue to benefit for further HOD CARRIER intervention in this setting to address dysphagia [...] comprehension of non-contextual information is a barrier HOD CARRIER follow-up: HOD CARRIER to continue to follow Discharge Plan: Acute Multidisciplinary Rehabilitation Program. WILY Ayala 02/19/2020 12:42 Fridays: Pager #[phone] HOD CARRIER Acute Care Pgr #[phone] * Liliana Chaudhary, RT - 02/19/2020 1210 EDT Images from the [...] Referral received. Assessment to follow. * Evelyn Galindo PT - 02/19/2020 1047 EDT [facility] Rehabilitation Therapy Acute [facility] Physical Therapy Encounter Note Date of [...] other consults recommended at this time Pager: [phone] Evelyn Galindo, PT 02/19/2020 10:48 * Parag [...] L Passed SBT this AM, extubated to PR, verbalizing minimally but appropriately Drain removed Precedex [...] [id number] [id number] Labs: CBC: Recent Labs 02/17/20 0519 02/18/20 0544 02/19/20 0418 WBC 7.76 6.87 7.94 RBC 3.52* 3.50* 3.30* HGB 11.9 12.3 11.0* HCT 35.5 34.9 32.7* MCV 101* 100* 99* MCH 33.8* 35.1* 33.3 MCHC 33.5 35.2 33.6 PLT 142 142 150 BMP: Recent Labs 02/16/20 1140 02/17/20 0519 02/18/20 0544 02/18/20 1213 02/18/20203302/19/208 NA 136 < > 139 < > [...] POCTCO2 27 24 Coags: Recent Labs 02/17/20 0519 02/18/2044 02/19/20417 PROTIME 13.9* 13.2 15.0* INR 1.2* 1.1 [...] 02/17 and borderline GCS, extubated 02/18 to NC. GI/FEN: NPO pending HOD CARRIER eval. Tube feeds to be resumed at [...] Patient Eligible For Transfer: No Daily Goals: HOD CARRIER, anticoagulation, monitor for neuro changes PARAG EID MD 02/19/2020 08:39 SICU pager #[phone] Cosigned by Priyank Escobar MD at 02/19/2020 18:34 EDT Associated attestation - Priyank Escobar MD - 02/19/2020 9567 EDT Attending Note I examined and discussed this pt with the residents on 02/19/20 and agree with the above note Total time spent: 31 min Critical Care Dx: Fluid electrolyte abn, AMS Tolerating extubation, MS improved, HOD CARRIER eval today, start ASA per Heme, no full anticoag yet per NS, de escalate Na target, adjust IVF and correct K Priyank Escobar MD [id number] * Michelet Paz MD - 02/19/2020 0822 EDT [facility] NEUROLOGY PROGRESS NOTE PATIENT NAME: Ynes White [...] commands. Gait: Deferred. LABORATORY: CBC: Recent Labs 02/17/20 0519 02/18/20 0544 02/19/20 0418 WBC 7.76 6.87 7.94 RBC 3.52* 3.50* 3.30* HGB 11.9 12.3 11.0* HCT 35.5 34.9 32.7* MCV 101* 100* 99* MCH 33.8* 35.1* 33.3 MCHC 33.5 35.2 33.6 PLT 142 142 150 BMP: Recent Labs 02/16/20 1140 02/17/20 0519 02/18/20 0544 02/18/20 1213 02/18/20203302/19/20 0418 NA 136 < > 139 < > [...] this interval not displayed. Coags: Recent Labs 02/17/2051802/18/2054302/19/208 PROTIME 13.9* 13.2 15.0* INR 1.2* 1.1 [...] over the left hemisphere. 2. 2 mm tdde-wj-ruxnf midline shift. CTA HEAD NECK 02/14/2020 IMPRESSION [...] hemorrhage in the left frontotemporal area. 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 COST ANALYST hormone replacement therapy (estradiol-norethindrone), family history of [...] No IVC filter per hematology/ IR - PT/OT/HOD CARRIER evaluation - Consider repeat CTV, likely next week Cecelia Rosario DO Department of Neurology, PGY3 Pager #[phone] (#[phone] on nights and weekends) 02/19/2020 8:22 Attestation [...] Neurosurgery Resident 02/19/2020 7:37 Neurosurgery Service Pager [phone] * Trenton Marlow MD - 02/19/2020 0651 EDT Neurosurgery Progress Note Problems/ Left transverse [...] ~140 Trenton Marlow MD 02/19/2020 6:51 Page 5912 with questions Cosigned by Dane Mcwilliams MD [...] sign off, please call ACS service pager [phone] with any questions or issues with PEG. [...] [facility] Rehabilitation Therapy Acute Therapy [facility] Physical Therapy Contact Note Date of Service: 02/18/2020 PT continues to follow patient. Per discussion with RN, patient remains intubated/sedated and plan is for PEG placement today. RN endorsing patient not following commands well. PT will hold today andwill f/u for assessment/treatment as indicated. Mary Clarke, JUWAN 02/18/2020 11:53 * Cheo Luz MD - [...] Cheo Luz MD PhD Neurointerventional Radiologist Pager #[phone] * Isabell Lora CCC-SLP - 02/18/2020 0814 EDT Speech-Language Pathology Contact Note HOD CARRIER not seeing pt today as she remains intubated. She is also scheduled to have PEG placed today. HOD CARRIER will return early next week. Please contact our department if team would like pt seen prior to that time. WILY Lutz #[phone] 02/18/2020 HOD CARRIER Department Pager #[phone] * Michelet Paz MD - 02/18/2020 0812 EDT [facility] NEUROLOGY PROGRESS NOTE PATIENT NAME: Ynes White [...] over the left hemisphere. 2. 2 mm vwge-fr-mywcw midline shift. CTA HEAD NECK 02/14/2020 IMPRESSION [...] hemorrhage in the left frontotemporal area. 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 COST ANALYST hormone replacement therapy (estradiol-norethindrone), family history of [...] embolism - Recommending against IVC filter - PT/OT/HOD CARRIER evaluation when able Cecelia Rosario DO Department of Neurology, PGY3 Pager #[phone] (#[phone] on nights and weekends) 02/18/2020 8:12 Attestation [...] attending Damon Eckert MD 02/18/2020 6:41 Page 1584 with questions Cosigned by Jerry Merrill MD [...] Neurosurgery * Shawn Mccollum MD - 02/18/2020 0626 EDT ICU Progress Note Admit Date: 02/14/2020 [...] kg (217 lb) I/O: Current Shift: 02/17 0700 - 02/17 1459 In: 183 [I.V.:133] Out: [...] Moving Bilateral Lower extremities, withdrawing to noxious [id number] Labs: CBC: Recent Labs 02/16/20 0308 [...] Shawn Mccollum MD 02/18/2020 08:45 SICU pager #[phone] Cosigned by Priyank Escobar MD at 02/19/2020 [...] today Priyank Escobar MD [phone] * Liliana Chaudhary, RT - 02/17/2020 1725 EDT Respiratory Progress Note Indications for Respiratory therapy: Vent Data Vitals: Heart Rate: 97 BPM, Resp: 16, SpO2: 99 % FIO2/O2 Device: O2 Device: Intubated, FIO2 %: 21 % RT Orders: VC/AC 490 x 14 Peep 5 30% Action/Events Patient has been stable on these vent settings today with minimal secretions. RT DEVIN 02/17/20 * Elizabeth Galvan MD - 02/17/2020 1629 EDT ACS consulted for possible PEG. Patient's brother (Caro, ) consented. Consent in chart.Attempted to call patient's sister Lucille ([phone]) twice however was unable to reach her to update her. Will try again tomorrow morning. Elizabeth Galvan MD PGY-2 Pager: #[phone] 02/17/2020 16:24 * Trish Dumas RN - 02/17/2020 6220 EDT Initial Case Management/Social Work Assessment and Discharge Plan/Readmission Risk Assessment REASON FOR ADMISSION: Cerebral venous thrombosis Patient understands reason for admission: No PATIENT CONTACT INFO VERIFIED: Yes PATIENT ADDRESS VERIFIED: Yes LIVING ARRANGEMENTS AND ACCESSIBILITY ISSUES: Living Arrangements: Apartment Bathroom located on bedroom level?: No What in home social supports are available to the patient? Family member(s) Is 17/06 care available? No ADVANCED DIRECTIVES, POA &/or COLST IN PLACE: Healthcare Directive: No, patient does not have advance directive for healthcare treatment Information Provided on Healthcare Directives: No Information on Healthcare Directives Requested: No DIRECTIVES FOR FINANCES: Directive For Finances: No TRANSPORTATION: Transportation: Family CULTURAL, MOSQUE and/or LANGUAGE factors affecting health care/discharge planning: [...] Home Health Services: None DME Provider: Pharmacy: [id number] AT [address] [facility] & [address] [address] Home Health: Other: POST HOSPITAL TRANSITION PLAN: Unclear at this time but prior to second procedure plan was for [place]. Will need to re-refer once stable. TRISH DUMAS RN,BSN #[id number] 02/17/2020 14:48 * Isabell Lora CCC-SLP - 02/17/2020 1414 EDT Speech-Language Pathology Contact Note Attempted to see pt to provide further diagnostic/therapeutic intervention for dysphagia and communication. Pt remains intubated. Met with pt's nurse who reported that the plan is to try and extubatept later today. Given this, HOD CARRIER will return tomorrow to continue work on the above if pt does get extubated later today. WILY Lutz #[phone] 02/17/2020 HOD CARRIER Department Pager #[phone] * Claus Piña MD - 02/17/2020 1410 [...] [facility] Rehabilitation Therapy Acute Therapy [facility] Physical Therapy Contact Note Date of Service: 02/17/2020 Patient is now status post left-sided craniectomy and hematoma evacuation on 02/16/2020 Patient currently intubated. As discussed with nursing, will defer physical therapy reassessment today. TIGRE GALINDO, PT 02/17/2020 13:43 [phone] * Shasha Richardson, RN - 02/17/2020 1002 EDT 02/16: In [...] and participatory in therapy. VANCE Gan, RN [facility] Acute Rehabilitation Unit Armor Reconnaissance Vehicle Crewman Pager # [phone] / [phone] * Shawn Mccollum MD - 02/17/2020 0727 [...] Bilateral Lower extremities Labs: CBC: Recent Labs 02/14/20174702/15/2031402/16/20 0308 02/16/20 1140 02/17/20 0519 WBC 6.92 9.07 9.67 -- 7.76 RBC 4.47 4.84 4.22 -- 3.52* HGB 15.1 15.9* 14.1 -- 11.9 HCT 44.8* 47.3* 40.8 37 35.5 MCV 100* 98 97 -- 101* MCH 33.8* 32.9 33.4* -- 33.8* MCHC 33.7 33.6 34.6 -- 33.5 PLT 167 158 154 -- 142 NEUTROABS 5.03 -- -- -- -- BMP: Recent Labs 02/14/20174702/15/2031402/16/20 0308 02/16/20 1140 02/16/20 1723 02/16/20 2328 02/17/20 0519 NA 135* 136 133* 136 134* 138 139 K 4.7 4.1 3.8 3.5 3.6 3.2* 3.5 CL 105 103 101 -- 106 111* 113* CO2 26 23 25 -- 25 22 22 BUN 11 -- -- -- -- [...] signed off) following - CTV today CV: [id number], HR in 80-90s. Cardiac monitoring. Telemetry. Nicardipine [...] Shawn Mccollum MD 02/17/2020 08:59 SICU pager #[phone] Cosigned by Priyank Escobar MD at 02/17/2020 [...] Michelet Paz MD - 02/17/2020 0721 EDT [facility] NEUROLOGY PROGRESS NOTE PATIENT NAME: Ynes White [...] commands. Gait: Deferred. LABORATORY: CBC: Recent Labs 02/14/20174702/15/2031402/16/20 0308 02/16/20 1140 02/17/20 0519 WBC 6.92 9.07 9.67 -- 7.76 RBC 4.47 4.84 4.22 -- 3.52* HGB 15.1 15.9* 14.1 -- 11.9 HCT 44.8* 47.3* 40.8 37 35.5 MCV 100* 98 97 -- 101* MCH 33.8* 32.9 33.4* -- 33.8* MCHC 33.7 33.6 34.6 -- 33.5 PLT 167 158 154 -- 142 NEUTROABS 5.03 -- -- -- -- BMP: Recent Labs 02/14/20 17402/15/2031402/16/20 0308 02/16/20 1140 02/16/20 1723 02/16/20 2328 02/17/20 0519 NA 135* 136 133* 136 134* 138 139 K 4.7 4.1 3.8 3.5 3.6 3.2* 3.5 CL 105 103 101 -- 106 111* 113* CO2 26 23 25 -- 25 22 22 BUN 11 -- -- -- -- [...] over the left hemisphere. 2. 2 mm yylr-cc-nohvj midline shift. CTA HEAD NECK 02/14/2020 IMPRESSION [...] hemorrhage in the left frontotemporal area. 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 COST ANALYST hormone replacement therapy (estradiol-norethindrone), family history of [...] mg q2h PRN for pain control - PT/OT/HOD CARRIER evaluation when able - Need to resume heparin as soon as possible - Will likely need IVC filter Anxiety/Depression: known prior history - Obtain records from PCP regarding medication regimen; have been having difficulty obtaining theserecords so could reach out to family again moving forward. Tobacco use disorder - Nicotine patch Cecelia Rosario DO Department of Neurology, PGY3 Pager #[phone] on nights and weekends) 02/17/2020 7:21 Attestation [...] assistance ASHLEIGH PATEL MD 02/17/2020 7:06 Page [phone] with questions Cosigned by Claus Piña MD at 02/17/2020 9:47 EDT Associated attestation - Claus Piña MD - 02/17/2020 4053 EDT Attestation statement: I saw and examined [...] MD FACS 02/17/2020 at 9:44 * Aníbal Calle RT - 02/17/2020 0551 EDT Respiratory Progress Note Indications for Respiratory [...] tolerated with hopes to extubate soon. RT KELSI 02/17/20 * Milli Persaud RN - 02/16/2020 2053 EDT [facility] Feeding Tube Placement Procedure Note [...] on these settings. Transport: Patient transported to [place] without incident on transport ventilator. SATs remained [...] sided craniectomy and hematoma evacuation (Penar, 02/16/20) Subjective/ Intubated, sedation held x 20 [...] Marlow MD Neurosurgery resident 02/16/2020 16:10 Page [phone] with questions * Sandra Bautista II, RT - 02/16/2020 0614 EDT Respiratory Progress Note Indications for Respiratory [...] Continue to monitor and assess SANDRA BAUTISTA II, RT 02/16/20 * Sandra Araujo, OT - 02/16/2020 0913 EDT [facility] Therapy [facility] Therapy [facility] Occupational Therapy Contact Note Date of Service: 02/16/2020 Pt unable to be seen today secondary to OR. Per NS, pt is intubated/sedated. Will continue to follow and see as approrpriate Sandra Araujo OT, 02/16/2020, 14:53 * Tigre Galindo, PT - 02/16/2020 1239 EDT [facility] Therapy [facility] Physical Therapy Contact Note Date of Service: 02/16/2020 Patient going to OR today. PT will resume post-op as indicated and PT assessment ongoing. Still recommend Acute rehab placement when medically ready. TIGRE GALINDO, PT 02/16/2020 12:39 [phone] * Isabell Lora CCC-HOD CARRIER - 02/16/2020 104 EDT Speech-Language Pathology Contact Note Attempted to see pt today to provide further diagnostic/therapeutic intervention for dysphagia and communication. Pt going to OR today, unable to see her at this time. Pt should be NPO after her surgery until her swallowing skills have been re evaluated by HOD CARRIER. Isabell Lora CCC-HOD CARRIER #[phone] 02/16/2020 HOD CARRIER Department Pager #[phone] * Trish Dumas RN - 02/16/2020 1045 EDT Case Management Contact Note: Attempted to meet patient, however she was being taken to the OR. Will f/u tomorrow. Trish Dumas RN, BSN #[id number] * Adali Heredia RD - 02/16/2020 1006 EDT BRIEF NOTE: Per HOD CARRIER: small amount of pureed food for pleasure [...] Michelet Paz MD - 02/16/2020 0804 EDT [facility] NEUROLOGY PROGRESS NOTE PATIENT NAME: Ynes White [...] on the right. LABORATORY: CBC: Recent Labs 02/14/20 1748 02/15/20 0315 02/16/20 0308 WBC 6.92 9.07 9.67 RBC 4.47 4.84 4.22 HGB 15.1 15.9* 14.1 HCT 44.8* 47.3* 40.8 MCV 100* 98 97 MCH 33.8* 32.9 33.4* MCHC 33.7 33.6 34.6 PLT 167 158 154 NEUTROABS 5.03 -- -- BMP: Recent Labs 02/14/20 1748 02/15/20 0315 02/16/20 0308 NA 135* 136 133* K [...] over the left hemisphere. 2. 2 mm iqut-ua-mupkg midline shift. CTA HEAD NECK 02/14/2020 IMPRESSION [...] hemorrhage in the left frontotemporal area. 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 COST ANALYST hormone replacement therapy (estradiol-norethindrone), family history of [...] mg q2h PRN for pain control - HOD CARRIER evaluation - Unsafe for swallow evaluation; maintain [...] Rosario DO Department of Neurology, PGY3 Pager #[phone] (#[phone] on nights and weekends) 02/16/2020 8:23 Attestation [...] MSc * Trenton Marlow MD - 02/16/2020 5331 EDT Neurosurgery Progress Note Problems/ -cerebral venous [...] but not briskly Labs/ CBC: Recent Labs 02/14/20 1748 02/15/20 0315 02/16/20 0308 WBC 6.92 9.07 9.67 RBC 4.47 4.84 4.22 HGB 15.1 15.9* 14.1 HCT 44.8* 47.3* 40.8 MCV 100* 98 97 MCH 33.8* 32.9 33.4* MCHC 33.7 33.6 34.6 PLT 167 158 154 NEUTROABS 5.03 -- -- BMP: Recent Labs 02/14/20 1748 02/15/20 0315 02/16/20 0308 NA 135* 136 133* K 4.7 4.1 3.8 CL 105 103 101 CO2 26 23 25 BUN 11 -- -- CREATININE 0.66 0.61 0.62 CALCIUM 8.8 -- -- CALCCA 9.1 -- -- Cardiac Markers: Recent Labs 02/14/203 TROPONINI <0.034 Hemoglobin A1c: Recent Labs 02/14/20 1748 HGBA1C 5.4 Assessment/ 50F with tobacco use, [...] follow Trenton Marlow MD 02/16/2020 7:33 Page [phone] with questions Cosigned by Claus Piña MD [...] CARLIN RN 02/15/2020 15:19 * Isabell Lora CCC-HOD CARRIER - 02/15/2020 1458 EDT Speech-Language Pathology Initial Communication and Swallow Evaluation Note HOD CARRIER Diagnosis: Aphasia and Dysphagia, oropharyngeal phase Medical [...] hemorrhage in the left frontotemporal area. 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 COST ANALYST medicationsinclude hormone replacement therapy (estradiol-norethindrone), family history [...] of Delivery: All items were administered by HOD CARRIER using a spoon and straw. Oral Phase [...] admission, and social/occupational demands, shewould benefit from HOD CARRIER intervention. Based on the patient's premorbid level [...] liquidsfor pleasure over the next 24 hours. HOD CARRIER will return to continue evaluation. Functional Communication Measures ([place] [employer], 2002). The Functional Communication Measures (FCM???s) are a series of 7 point rating scales, ranging fromleast functional (Level 1) to most functional (Level 7). They have been developed by [employer] to describe different aspects of patient???s functional communication and swallowing abilities over the course of HOD CARRIER intervention. Swallowing Level 3: Alternative method of [...] words orphrases related to personal needs. GOALS: Computer Network Specialist Goals: Projected Functional Communication Measures at discharge: [...] Term Goals: The patient will complete the HOD CARRIER evaluation in the areas of: verbal expression, auditory comprehension, reading comprehension and written expression. Plan /RECOMMENDATIONS: Provide HOD CARRIER services on a consult model of care [...] will benefit from an acute rehab stay. NICK LutzHOD CARRIER #[id number] 02/15/2020 HOD CARRIER Department Pager #[phone] * Sandra Araujo, OT - 02/15/2020 1403 EDT [facility] Occupational Therapy Contact Note Date of Service: 02/15/2020 OT referral received. Pt off the floor for a test, will f/u as able Sandra Araujo OT, 02/15/2020, 14:11 * Tigre Galindo, PT - 02/15/2020 1256 EDT [facility] Physical Therapy Initial Evaluation Note [...] sinus thrombosis [G08] The patient lives at [address] [place] [address] History of Present Illness / Injury Current Illness / Injury: Per MD H&P note:Ynes White is a 50 y.o. female with a PMHx significant for smoking who presents with a cerebral venous thrombosis and resultant intraparenchymal hemorrhage in the left frontotemporal area. 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 COST ANALYST medications include hormone replacement therapy (estradiol- norethindrone), [...] responses to stimuli, Delayed responses to stimuli Comfort Coma Scale (> 24 months) Eye Opening: To speech Best Verbal: Confused Best Motor: Obeys commands Total Comfort Coma Scale: 13 Orientation Comments: Disoriented to [...] transverse sinus as well as theveins of Trolesly and Kristen. 2. Intraparenchymal hemorrhage has increased [...] over the left hemisphere. ?2. 2 mm xpfq-ry-brciz midline shift. Balance, Mobility, and Gait: Balance: [...] therapy session, Prior to therapy session By: [id number]-[id number] communication About Self-Care: Need to have patient [...] by the physical therapist and/or physical therapist primary teaching assistant when medically appropriate Frequency: Times per [...] Recommendations Other Recommended Services: Occupational therapy consult, flying squad worker/classification case manager consult, Speech language pathology consult, Inpatient rehabilitation consult Other Recommendations Comments: [facility] [place] rehab consult initiated Pager: [phone] TIGRE GALINDO, PT 02/15/2020 14:53 * Tigre Galindo, PT - 02/15/2020 1253 EDT [facility] Rehabilitation Therapy Acute Therapy [facility] [place] [facility] Contact Note Date of Service: [...] assessment ongoing. TIGRE GALINDO, PT 02/15/2020 12:54 [phone] * Trish Dumas RN - 02/15/2020 1132 EDT Case Management Contact Note: Patient working with PT when I went by, I suspect she will need rehab. Full assessment to follow once patient available. Trish Dumas RN, BSN #[id number] * Ashleigh Patel MD - 02/15/2020 0857 EDT Neurosurgery Progress Note Problems/ -cerebral venous [...] bilateral upper extremities Moving LE/UE spontaneously, UE senior solutions engineer/flexion/extension 03/29 Labs/ CBC: Recent Labs 02/14/208 02/15/20 0315 WBC 6.92 9.07 RBC 4.47 4.84 HGB 15.1 15.9* HCT 44.8* 47.3* MCV 100* 98 MCH 33.8* 32.9 MCHC 33.7 33.6 PLT 167 158 NEUTROABS 5.03 -- BMP: Recent Labs 02/14/208 02/15/20 0315 NA 135* 136 K 4.7 [...] team ASHLEIGH PATEL MD 02/15/2020 8:58 Page [phone] with questions Cosigned by Claus Piña MD at 02/15/2020 11:27 EDT * Michelet Paz MD - 02/15/2020 0833 EDT [facility] NEUROLOGY PROGRESS NOTE PATIENT NAME: Ynes White [...] gait, normal tandem LABORATORY: CBC: Recent Labs 02/14/20174702/15/20314 WBC 6.92 9.07 RBC 4.47 4.84 HGB 15.1 15.9* HCT 44.8* 47.3* MCV 100* 98 MCH 33.8* 32.9 MCHC 33.7 33.6 PLT 167 158 NEUTROABS 5.03 -- BMP: Recent Labs 02/14/20174702/15/20314 NA 135* 136 K 4.7 4.1 CL [...] over the left hemisphere. 2. 2 mm hzix-no-wzcbf midline shift. CTA HEAD NECK 02/14/2020 IMPRESSION [...] hemorrhage in the left frontotemporal area. 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 COST ANALYST medications include hormone replacement therapy (estradiol-no rethindrone), [...] drip gtt, UFH at goal currently - HOD CARRIER evaluation - Unsafe for swallow evaluation; maintain [...] note. Michelet Paz MD MSc * Wendie Isaacs, RT - 02/14/2020 0310 EDT Images from the original note were [...] H&P Notes * Michelet Paz MD - 02/14/20202224 EDT Stroke History and Physical Service Date: 02/14/2020 Admit Date: 02/14/2020 16:23 Primary Care Provider: Alejandrina Carrillo Referring MD:Sherman Ponce MD Code Status: Full Code Palliative Care was not consulted because criteria not met. Chief Complaint: Cerebral venous thrombosis HPI Ynes White is a 50 y.o. female with a PMHx of smoking who presents as a transfer from [facility] with a cerebral venous thrombosis with a resultant left frontotemporal hemorrhage. She initially presented to [facility] after her ex- boyfriend found her confused and vomiting. She was given 1 g Keppra, fentanyl, zofran, and started on a nicardipine drip. She was hypertensive to SBP 170s. A CT head showed aleft temporoparietal bleed, and she was transferred to [facility] for further care. Upon arrival to [facility], a CT venogram showed a venous [...] communicating. Cerebellar: Unable to follow directions for qonpzz-yewu-qvujxt testing. Pressure Ulcer Present on admission? No Labs I have personally reviewed Recent Labs 02/14/20 1748 WBC 6.92 RBC 4.47 HGB 15.1 HCT 44.8* MCV 100* MCH 33.8* MCHC 33.7 PLT 167 NEUTROABS 5.03 Recent Labs 02/14/20 1748 NA 135* K 4.7 CL 105 CO2 26 BUN 11 CREATININE 0.66 CALCIUM 8.8 Recent Labs 02/14/203 TROPONINI <0.[address] venogram 02/14/20: IMPRESSION 1. Venous thrombosis in the left internal jugular vein, sigmoid and transverse sinus as well as theveins of Bridgett and Kristen. 2. Intraparenchymal hemorrhage has increased [...] over the left hemisphere. 2. 2 mm vcog-mp-kmayp midline shift. Assessment Ynes White is a 50 y.o. female with a PMHx significant for smoking who presents with a cerebral venous thrombosis and resultant intraparenchymal hemorrhage in the left frontotemporal area. 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 COST ANALYST medications include hormone replacement therapy (estradiol-norethindrone), which [...] Heparin drip started at 17 units/kg/hr - HOD CARRIER evaluation - Will need hematology consult in [...] syndrome and tobacco use who presents from [facility] for left temporoparietal intracranial hemorrhage. History gathered from OSH notes as patient is profoundly receptively and expressively aphasic. Patient was evaluated yesterday at [facility] for left frontal headache. She had a negative CT head at the time and was discharged home. She was found this morning altered and complaining of headache, brought to [facility] where CT head demonstrated significant left temporoparietal intracranial hemorrhage hjbm2mc shift and hypertensive at 170/100. She was given 1g Keppra IV, 4mg IV ondansetron, 100mcg of IVfentanyl, on nicardipine at 5mg/hr. She was transferred to [facility] for further evaluation. Dr Plummer in [...] (C5, 6) 5/5 Tricep (C6, 7) 5/5 Stacker (C8) 5/5 UE Strength - RIGHT Deltoid (C5) Unable to perform Bicep (C5, 6) 5/5 Tricep (C6, 7) 5/5 Stacker (C8) 5/5 No drift LE Strength - [...] MCHC 33.7 PLT 167 NEUTROABS 5.03 Imaging [facility] CT head wo Contrast 02/14/2020 IMPRESSION: 1. Acute intra-axial hemorrhage left temporal and frontal lobes the approximately 5.8 by 3.5 by 4.8cm. Associated subarachnoid hemorrhage over the left hemisphere. 2. 2 mm vyyh-vt-yyofu midline shift. CT angio head and neck [...] concussion syndrome and tobacco use who presents[facility] for atraumatic left [...] when stable - Hold DVT proph - HOD CARRIER consult - Neurology evaluation for work up [...] [Patient initially admitted while Dr. Conley was bus matron.] Claus Piña MD [facility] 02/15/2020 at 11:21 documented in this encounter Procedure Notes * Brayan Putnam MD - 02/18/2020 1518 EDT PERCUTANEOUS ENDOSCOPIC GASTROSTOMY TUBE PLACEMENT DATE OF SERVICE: 02/18/2020 PRE-OPERATIVE DIAGNOSIS: Cerebral venous thrombosis POST-OPERATIVE DIAGNOSIS: same PROCEDURE: Percutaneous gastrostomy tube placement using the pull-through technique SURGEON: Ashleigh Branch MD WELDER APPRENTICE ARC/ENDOSCOPIST: Haile Cruz MD, Jason Putnam MD ANESTHESIA: [...] * Maria Victoria Hernandez MD - 03/02/2020 3088 EDT MEDICINE CONSULT Requested by: Dr. Rutherford Reason: Hypercoagulable state of unclear origin, cerebral venous thrombosis presenting as left frontal intraparenchymal hemorrhage, incidental PE in RUL and UE DVT, worsening hemorrhage in the setting of therapeutic anticoagulation Date of admission to hospital: 02/14/2020 Date of admission to [facility]: 03/02/2020 HPI: Patient was admitted with a left intraparenchymal hemorrhage related to a sizeable cerebral venous thrombosis in the left IJ --> sigmoid--> transverse sinus. She is unable to give history due to poor memory and fluent expressive aphasia. On chart review, she presented to [facility] the day before with strong headache and had a negative head CT at the time. She went home and developed worsening confusion and worse headache which prompted return to the ED on 02/13 where imaging then showed large left temporo-parietal hemorrhage. She was hypertensive so was treated with iv keppra and a continuous nicardipine infusion and transferred urgently to [facility] for further neurosurgical evaluation. On arrival, [...] use: Yes She says she lives in [place] (?), but it looks like maybe [place] [...] Incision looks ok, some eschar along midsection Powers in place Skin: No rash Cardiac: Regular [...] Venous dural thrombosis resulting in large IPH PT/OT/HOD CARRIER Falls precautions Delirium prevention measures Aspiration precautions [...] noted headache on 02/13/2020 was evaluated at [facility], where CT scan of the head was reported as negative she was discharged to home. On 02/14/2020, she had continued headache, and brought back to [facility] where CT scan of the head showed a significant left temporoparietal intracranial hemorrhage with 2 mm shift, she was hypertensive at 170/100. She was transferred to the [facility] for further evaluation. On admission, she [...] her to Lovenox if stable. PT, OT, HOD CARRIER have all been involved in her care [...] distress HEENT: Decompressive left hemicraniectomy is noted. Powers are in place the surgical incision and [...] thrombosis 02/14/2020 Priority: Medium ??? (H)Brain herniation ([facility]) 02/17/2020 Priority: Medium ??? (H)Cerebral edema ([facility]) 02/17/2020 Priority: Medium ??? (H)Cerebral venous sinus [...] Please continue consultations with PT, OT and HOD CARRIER to address mobility, self-cares, language communication, swallowing [...] MD 02/17/2020, 16:39 General Surgery PGY-4 Pager [phone] Above discussed with attending Dr. Branch Cosigned by Ashleigh Branch MD at 02/18/2020 8:59 EDT * Anat Mayers, STIVEN - 02/17/2020 1151 EDTAssociated Order(s): CONSULT NUTRITION [...] Weight: 98.4 kg 02/14, BMI 34 kg/m2 [place] Body Weight (IBW): 61 kg Pertinent Medications: [...] desired Re-check Weight 2-3x/week Anat Mayers RD [place] 3 Dietitian Pager: [phone] * Adali Heredia RD - 02/16/2020 1352 [...] PRN bupivacaine-EPINEPHrine (PF) 0.5 %-1:200,000 injection PRN [MAR Hold] dextrose 50 % solution 12.5 g intravenous PRN docusate sodium (COLACE) capsule 100 mg oral BID [MAR Hold] etomidate (AMIDATE) injection 49.2 mg intravenous Now gelatin adsorbable 100 cm sponge PRN Gelatin Adsorbable powder PRN [MAR Hold] glucagon injection 1 mg intramuscular PRN hydrALAzine (APRESOLINE) 10 mg in sodium chloride (NS) 0.9 % 50 mL IVPB intravenous Q1H PRN [MAR Hold] insulin aspart U-100 (NOVOLOG FLEXPEN) injection [...] ??04/12 vit D= 31 Estimated Nutrition Needs: [id number] rizwana (BEE adj x 1.1/IRJ) 120 gm [...] Adequate daily bowel meds Adali Heredia RD [place] [id number] Dietitian Pager: [phone] * Cecelia Ruano MD - 02/16/2020 1256 EDT Ophthalmology was asked to weigh in [...] ??? Drug use: Not on file Medications: [Jan] etomidate 0.5 mg/kg intravenous Now [Jan] insulin aspart U-100 subcutaneous Q6H [Jan] iohexoL 100 mL intravenous Once in imaging [Jan] mannitol 50 g intravenous Now [Jan] nicotine 1 Patch transdermal Q24H NORepinephrine (LEVOPHED) in D5W 32 mcg/ml 250 ml ondansetron (PF) prochlorperazine edisylate propOFol rocuronium [Jan] rocuronium 0.5 mg/kg intravenous Now Objective: Vital [...] BLE withdrawing; L>R Labs: CBC: Recent Labs 02/14/20 1748 02/15/20 0315 02/16/20 0308 WBC 6.92 9.07 9.67 RBC 4.47 4.84 4.22 HGB 15.1 15.9* 14.1 HCT 44.8* 47.3* 40.8 MCV 100* 98 97 MCH 33.8* 32.9 33.4* MCHC 33.7 33.6 34.6 PLT 167 158 154 NEUTROABS 5.03 -- -- BMP: Recent Labs 02/14/20 1748 02/15/20 0315 02/16/20 0308 NA 135* 136 133* K 4.7 4.1 3.8 CL 105 103 101 CO2 26 23 25 BUN 11 -- -- CREATININE 0.66 0.61 0.62 CALCIUM 8.8 -- -- CALCCA 9.1 -- -- ABG: No results for input(s): PHISTAT, PCOISTAT, POISTAT, POCTCO2, Q4HZDCAI, POCFIO2 in the last 72 hours. Coags: [...] pending NS recommendations. PARAG EID MD Pager #[phone] 02/16/2020 10:38 Cosigned by Gabe Sol MD PhD at 02/16/2020 21:42 EDT Associated attestation - Gabe Sol MD PhD - 02/16/2020 1552 EDT Attending attestation statement: I saw and [...] Sol MD PhD Surgical Critical Care Pager #[phone] * Cheo Luz MD - 02/15/2020 1831 EDT Neurointerventional Radiology Consult Note Name: Ynes [...] Cheo Luz MD PhD Neurointerventional Radiologist Pager #[phone] Recommendations discussed with Amber Mayers on 02/14/2020 [...] hemorrhage, intraoperative ultrasound. SURGEON: Claus Piña MD WELDER APPRENTICE ARC: Haile Brown MD ANESTHESIA: General. INDICATIONS: The [...] temporalis muscle. Hemostasis was achieved and 4 dumper bailer operator holes were placed. The craniotome was [...] PM / Claus Piña MD ln Confirmation: [id number] Dictation ID: [id number] documented in this encounter ED Notes * Mohit Gutierrez RN - 02/14/20202039 EDT ED MD made aware about pts change in breathing. O2 saturation remains 100% RA. Pt responsive and states she is having a lot of pain. Will continue to monitor. * Mohit Gutierrez RN - 02/14/2020 1921 EDT Caro (brother) called to get update [...] - 02/14/2020 1800 EDTAssociated Order(s): Critical Care I, Rosalind Reyes, am scribing for Toni Gilbert MD while he/she is personally performing theservice. Rosalind Reyes 02/14/2020 18:00 Ynes White is a 50 y.o. female who presents to the ED with AMS and worsening QUINONES. Per chart review, she was seen at [facility] this morning and had a head CT [...] reviewed independently by myself, significant for normal. 1804: Discussed patient's case with neurology, who will review the patient's CT and evaluate. 1899: Discussed patient???s case with neurosurgery and neurology, [...] or life-threatening deterioration of the following conditions: WIRE STRANDER failure or compromise Critical care was time [...] 2mg morphine. MDM: 50-year-old female transferred from [facility] I received signout patient has already [...] Priyank Drew - 02/14/2020 1632 EDT TRANSFER: [facility] Ynes White [age]y/o F, w/AMS +QUINONES, , left intraparenchymal hemorrhage and shift, expressive and receptive aphasia, Keppra and Nicardipine Sending zion Ponce * Brayan Plummer MD - 02/14/2020 1626 EDT This patient received an evaluation and medical screening exam for emergent medical conditions at the [facility] on 02/14/2020 Chief Complaint Altered Mental Status HPI Ynes White is a 50 y.o. female with PMH including post concussion syndrome and nicotine dependence who presents to the ED via EMS as a transfer from [facility] for evaluation of altered mental status. Per medical records, she was evaluated at [facility] ED yesterday for a left frontal QUINONES with a negative CT Head at the time. EMS states that her ex-boyfriend discovered her this morning with AMS and a wors ening QUINONES; he subsequently brought her to the [facility] ED. Medical records [...] ED via EMS as a transfer from [facility] for evaluation of altered mental status. Per medical records, she was evaluated at [facility] ED yesterday for a left frontal QUINONES with a negative CT Head at the time. EMS states that her ex- boyfriend discovered her this morning with AMS and a worsening QUINONES; he subsequently brought her to the [facility] ED. Medical records [...] concerns. Kathi Garcia MD Fellow Hematology Oncology [facility] Pager [phone] * Plan of Care - Ebenezer Masters RN - 03/02/2020 0946 EDT Nursing Discharge Note D: Patient noted with discharge orders to: Acute Rehab. A: Prescriptions e-scripted. Reviewed discharge instructions and prescriptions with Patient and Other with POC reviewed during report to receiving RN Belongings collected and sent home with patient. Report called to Rehab 2 ([phone]) at 1130. R: Patient verbalized understanding of discharge instructions and denied further questions. Transfer of care preformed at the bedside with [facility], helmet in place prior to [...] Care - Kathi Aguilar MD - 02/29/2020 1450 EDT Hematology brief note 50 y old [...] team Kathi Garcia MD Fellow Hematology Oncology [facility] Pager [phone] Cosigned by Marce Rosenbaum MD at 02/29/2020 [...] 1:58 * Plan of Care - Michelle Davis RN - 02/28/2020 9197 EDT Data: POD 12 s/p left ruben-craniotomy. [...] pain. A: Medications administered as scheduled per JAN. 1x assist ambulating to bathroom. M6 RN [...] of shift. A: PRN pain medication per JAN. 1 Assist ambulating to bathroom. M6 RN [...] AC Frank Hardwick MD PGY4 Hematology/Oncology pager [phone]. 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 Pt slept in short naps. [...] - Vital signs assessed, provider notified and shipping room supervisor notified. R - Patient Vitals for [...] continue to monitor and intervene as needed GEAM BHATTI RN 02/23/2020 16:55 * Plan of Care - Spencer Fair RN - 02/23/2020 0452 EDT Problem: Daily Care Plan Goals Goal: Care Plan Documentation Outcome: Met This Shift Flowsheets (Taken 02/22/2020 6695) Area of Focus: Safety Goal This Shift: [...] of Care - Francheska Walker RN - 02/22/20201948 EDT Problem: Daily Care Plan Goals Goal: Care Plan Documentation Outcome: Ongoing Flowsheets Taken 02/21/20201999 by Kendra Yousif RN Area of Focus: Neuro Status Taken 02/22/20201942 by Francheska Walker RN Goal This Shift: Monitor neuro status. Note: [...] and moves all extremities. Left eye swollen. Powers to left crani site C/D/I open to [...] of Care - Carol Ash RN - 02/21/2020 1758 EDT Problem: Daily Care Plan Goals Goal: [...] Care - Kendra Yousif RN - 02/21/2020 0336 EDT Problem: Daily Care Plan Goals Goal: [...] observer at bedside Action: Neuro checks done [id number] overnight, care clustered to promote periods of rest. Patient repositioned Q2hrs to preserve skin integrity and prevent break down. Medicated with PRN dilaudid and tylenol for pain see eMAR. PRN hydralazine and Labetalol given for SBP>140mmhg see eMAR Response: Neuro status remains unchanged, VSS SBP within goal will continue to monitor patient KENDRA YOUSIF RN 02/21/2020 3:31 * Plan of Care - Niki Graves RN - 02/20/2020 0608 EDT Problem: Daily Care [...] HIT. Frank Hardwick MD PGY4 Hematology/Oncology pager [phone]. * Plan of Care - Diogenes?O, AZALEA Yost - 02/19/2020 1037 EDT Problem: High Fall [...] respiratory effort. frequent oral care offered. Enc. Bath with ADLs. Consults in place: PT.OT. Critical care. Notify HO of abnl. Fall risk plan- falling star posted, bed alarm on. Response: 0900 Pt's boyfriend called to speak on speaker phone with patient [phone] Standing at bedside with RN and PT 1045 HOD CARRIER at bedside assessing patient's swallow Lab Results Component Value Date NA 144 02/19/2020 K 3.0 (L) 02/19/2020 CL 109 02/19/2020 CO2 29 02/19/2020 * Plan of Care - Niki Graves RN - 02/19/2020226 EDT Problem: Daily Care Plan Goals Goal: [...] cares, turned. Pt nodding yes to pain, called for PRNs. Mouth care done. Q8 [...] 02/19/2020 2:27 * Plan of Care - Diogenes?O, AZALEA Yost - 02/18/2020 0848 EDT Problem: High Fall Risk: Goal: Patient [...] Data: Alarms reviewed. Fall risk assessment score=21 Tjea score=13 . Received pt at 0700, eyes [...] you Frank Hardwick MD PGY4 Hematology/Oncology pager [phone]. 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 Brain well relaxed following clot evacuation Complications: None Anesthesia: General EBL: 150cc IV Fluids: 1500cc IVF, 50g mannitol Urine Output: 1200cc Culture/Specimen: Bone flap to freezer (future tack up holes drilled) Drain/Implant: Subgaleal LUPE drain Skin: Powers Disposition: SICU, intubated Plan: q1 hour pupil checks, q4 neuro exams SBP <140 Remain intubated, sedated for now Hold any anticoagulation at this point Non-contrast head CT this evening, repeat CTV tomorrow/thursday to assess for clot propagation Possible neuro IR intervention if further propagation of clot Appreciate hematology recommendations - LE DVT ultrasound, plan for IVC filter if positive Appreciate SICU assistance Haile Brown MD Neurosurgery Resident 02/16/2020 13:39 Pager [phone] * Plan of Care - Frank Hardwick [...] benefit. Frank Hardwick MD PGY4 Hematology/Oncology pager [phone]. * Plan of Care - Ernst Franco [...] pandemic, and by the recommendations from the [facility] to minimize possible patients and providers exposure will reserve direct patient interactions toextremely urgent cases, otherwise will attempt to provide our recommendations to the primary team after careful review of the chart and thorough discussion with the primary team. Assessment: This is a case of a 50 years old female patient with past medical history of postconcussion syndrome who presented from [facility] as a direct transfer due to concern of temporoparietal intracranial hematoma with cerebral venous thrombosis. According to the primary team the patient is completely aphasic and altered and was not able to deliver an appropriate history. It seems that she was evaluated on Saturday at [facility] for left frontal headache, however her CT head was negative so patient was discharged home. On Saturday morning the patient was found to be altered and complaining of headache so she was brought again to [facility] where her CT head this time demonstratedconcern for temporoparietal intracranial hemorrhage and her blood pressure was 170/100. The patientthen was transferred to [facility] for further evaluation. Here, she got [...] Care - Aletha Renner RN - 02/14/2020 0908 EDT Problem: Daily Care Plan Goals Goal: Care Plan Documentation Outcome: Met This Shift Flowsheets (Taken 02/14/20202199) Area of Focus: Neuro Status Goal This Shift: Monitor for changes Data: Pt admitted to SICU from ED after transfer from [facility] for hemorrhagic stroke; [...] EDT Telemedicine [facility] - [facility] Neurology Clinic [address] [place] [id number] Brayan Polk MD [address] [place] [address] [place] [phone] 07/14/2025 14:30 EDT Office Visit [facility] Hematology & Oncology - [address] [address] Evin Maria MD [address] [place] [address], [facility], [address] [place] [phone] documented as of this encounter Procedures Procedure [...] 02/27/2020 5:45 EDT POCT GLUCOSE, INTERFACED Routine 020 21:20 EDT POCT GLUCOSE, INTERFACED Routine 020 16:52 EDT POCT GLUCOSE, INTERFACED Routine 11:52 EDT [facility], PI-LINKED AG, B Add-On [...] 21:34 EDT POCT GLUCOSE, INTERFACED Routine 020 19:15 EDT POCT GLUCOSE, INTERFACED Routine 020 17:[address] HEAD VENOGRAM W CONTRAST Routine 02/25/2020 12:41 EDT POCT GLUCOSE, INTERFACED Routine 020 7:40 EDT PTT Routine 02/25/2020 6:18 EDT [...] (DVT) BILATERAL STAT 02/16/2020 16:05 EDT Stroke ([facility]) Pulmonary embolism ([facility]) SURGICAL PATHOLOGY Routine 02/16/2020 12 :30 EDT [...] 03/04/2020 11:5 6 EDT us Scan 2 Transport Specialist PROCEDURE/MINOR SURGICAL OR DERABLES Final Result * ECG REPORT - SCANNED (03/04/2020 11:56 EDT) 03/04/2020 11:5 6 EDT us Scan 2 Transport Specialist PROCEDURE/MINOR SURGICAL OR DERABLES Final Result * (ABNORMAL) POCT GLUCOSE, INTERFACED (03/02/2020 12:25 EDT) [facility] Glucose, POC 112(H) 70 - 100 mg/dL 03/02/2020 12:27 EDT [facility] engine boss ID [id number] 03/02/2020 12:27 EDT [facility] HN LAB POC COMMENT (GLUCOSE) Test Performed by Nursing Services 03/02/2020 12:27 EDT [facility] Blood CAPILLARY BLOOD / Unknown 03/02/2020 12:25 EDT 03/02/2020 12:27 EDT us Kevin Rinaldi MD POINT OF CARE TEST ORDERABLES F inal Result [facility] [address] [place] [address] * MYELOPROLIFERATIVE NEOPLASM, JAK2 V617F W REFLEX (03/02/2020 11:41 EDT) MPNR Result see interpretation 03/08/2020 13:51 EDT [facility] Final Diagnosis SEE NOTE 0 13:[address] [facility] Comment: Peripheral blood, JAK2 V617F mutation [...] mutation analysis: Genomic DNA was extracted and [place] sequencing used to evaluate for mutations in MPL, exon 10. The sensitivity of this assay is approximately 20%, such that samples containing lower percentages of mutated DNA will appear negative. Comment: Negative results for VGI8H215Y, CALR exon 9, and MPL exon 10 [...] developed and its performance characteristics determined by [facility] in a manner consistent with CLIA requirements. This test has not been cleared or approved by the U.S. Food and Drug Administration. Test Performed by: [address] [address] An/Ssn 2 4 Operator: Kain Shay M.D. Ph.D.; CLIA# [id number] Blood VENOUS BLOOD / Unknown Venipuncture / Unknown 03/02/2020 11:41 EDT 03/02/2020 12:00 EDT Claus Piña MD CHEMISTRY & BLOOD GAS ORDERABLES Final Result Performing Organization Address [facility]/ZIP Co de Phone Number [address] [address] * (ABNORMAL) POCT GLUCOSE, INTERFACED (03/02/2020 6:55 EDT) Glucose, POC 105(H) 70 - 100 mg/dL 03/02/2020 6:57 EDT [facility] engine boss ID [id number] 03/02/2020 6:57 EDT [facility] HN LAB POC COMMENT (GLUCOSE) Test Performed by Nursing Services 03/02/2020 6:57 EDT [facility] Blood CAPILLARY BLOOD / Unknown 03/02/2020 6:55 EDT 03/02/2020 6:57 EDT Kevin Rinaldi MD POINT OF CARE TEST ORDERABLES F inal Result [facility] [address] [place] [address] * (ABNORMAL) ELECTROLYTES (03/02/2020 6:12 EDT) Sodium 134(L) 136 - 145 mEq/L 03/02/2020 7:08 EDT [facility] Potassium 4.8 3.5 - 5.0 mEq/L 03/02/2020 7:08 EDT [facility] Chloride 102 96 - 110 mEq/L 03/02/2020 7:08 EDT [facility] CO2 Total 22 22 - 32 mEq/L 03/02/2020 7:08 EDT [facility] Blood VENOUS BLOOD / Unknown Venipuncture / Unknown 03/02/2020 6:12 EDT 03/02/2020 6:35 EDT us Damon Eckert MD CHEMISTRY & BLOOD GAS ORDER [place] Final Result Performing Organization Address City/[facility]/ZIP Co de Phone Number [facility] [address] [place] [address] * (ABNORMAL) PHOSPHORUS (03/02/2020 6:12 EDT) Phosphorus 5.6(H) 2.5 - 4.5 mg/dL 03/02/2020 7:08 EDT [facility] Blood VENOUS BLOOD / Unknown Venipuncture / Unknown 03/02/2020 6:12 EDT 03/02/2020 6:35 EDT Parag Eid MD CHEMISTRY & BLOOD GAS ORDERAB LES Final Result Performing Organization Address [facility]/ZIP Co de Phone Number [facility] [address] [place] [address] * MAGNESIUM (03/02/2020 6:12 EDT) Magnesium 1.7 1.7 - 2.8 mg/dL 03/02/2020 7:08 EDT [facility] Blood VENOUS BLOOD / Unknown Venipuncture / Unknown 03/02/2020 6:12 EDT 03/02/2020 6:35 EDT Parag Eid MD CHEMISTRY & BLOOD GAS ORDERAB LES Final Result Performing Organization Address City/[facility] Co de Phone Number [facility] [address] [place] [address] * PROTIME (03/02/2020 6:12 EDT) I.N.R. 1.1 0.9 - 1.1 Ratio 03/02/2020 7:07 EDT [facility] Pro Time 13.2 10.3 - 13.4 secs 03/02/2020 7:07 EDT [facility] Blood VENOUS BLOOD / Unknown Venipuncture / Unknown 03/02/2020 6:12 EDT 03/02/2020 6:34 EDT Narrative [facility] - 03/02/2020 7:07 EDT Moderate Intensity Coumadin INR = 2.0-3.0 Adjustments in anticoagulant therapy dose should be based on the INR and NOT on the Protime. us Parag Eid MD HEMATOLOGY & PF4 ORDERABLES F inal Result Performing Organization Address City/[facility]/ZIP Co de Phone Number [facility] [address] [place] [address] * (ABNORMAL) PTT (03/02/2020 6:12 EDT) PTT 39(H) 26 - 37 secs 03/02/2020 7:07 EDT [facility] Blood VENOUS BLOOD / Unknown Venipuncture / Unknown 03/02/2020 6:12 EDT 03/02/2020 6:34 EDT us Parag Eid MD HEMATOLOGY & PF4 ORDERABLES F inal Result Performing Organization Address [facility] Co de Phone Number [facility] [address] [place] [address] * BUN (03/02/2020 6:12 EDT) BUN 20 10 - 26 mg/dL 03/02/2020 7:08 EDT [facility] Blood VENOUS BLOOD / Unknown Venipuncture / Unknown 03/02/2020 6:12 EDT 03/02/2020 6:35 EDT us Parag Eid MD CHEMISTRY & BLOOD GAS ORDERAB LES Final Result Performing Organization Address [facility] Co de Phone Number [facility] [address] [place] [address] * (ABNORMAL) CREATININE (03/02/2020 6:12 EDT) Creatinine 0.45(L) 0.52 - 1.04 mg/dL 03/02/2020 7:08 T [facility] eGFR 116 >60 mL/min/1.7 3m2 03/02/2020 7:08 [facility] Comment:eGFR calculated mickey redd CKD-EPI equation for non- Americans. Multiply eGFR by 1.16 for patients. Blood VENOUS BLOOD / Unknown Venipuncture / Unknown 03/02/2020 6:12 EDT 03/02/2020 6:35 EDT Joyce Lee MD CHEMISTRY & BLOOD GAS ORDERABLES Final Result Performing Organization Address City/State/[facility] Co de Phone Number [facility] [address] [place] [address] * (ABNORMAL) COMPLETE BLOOD COUNT (03/02/2020 6:12 EDT) WBC 6.43 4.00 - 12.40 K/cmm 03/02/2020 6:44 [facility] RBC 4.10 3.86 - 5.04 M/cmm 03/02/2020 6:44 [facility] Hemoglobin 13.2 11.6 - 15.2 gm/dL 03/02/2020 6:44 [facility] HCT 39.6 34.9 - 44.4 % 03/02/2020 6:44 [facility] MCV 97 81 - 98 fl 03/02/2020 6:44 [facility] MCH 32.2 26.7 - 33.3 pg 03/02/2020 6:44 [facility] MCHC 33.3 32.1 - 35.9 gm/dL 03/02/2020 6:44 [facility] RDW-CV 13.3 <14.7 % 03/02/2020 6:44 [facility] RDW-SD 48.0 <50.4 fl 03/02/2020 6:44 [facility] PLT 462(H) 141 - 377 K/cmm 03/02/2020 6:44 EDT [facility] MPV 10.9 9.5 - 12.7 fl 03/02/2020 6:44 EDT [facility] Blood VENOUS BLOOD / Unknown Venipuncture / Unknown 03/02/2020 6:12 EDT 03/02/2020 6:36 EDT us Joyce Lee MD HEMATOLOGY & PF4 ORDERABLES Shannon l Result Performing Organization Address City/[facility]/ZIP Co de Phone Number [facility] [address] [place] [address] * (ABNORMAL) POCT GLUCOSE, INTERFACED (03/01/2020 20:41 EDT) Glucose, POC 119(H) 70 - 100 mg/dL 03/01/2020 20:42 EDT [facility] engine boss ID [id number] 03/01/2020 20:42 EDT [facility] HN LAB POC COMMENT (GLUCOSE) Test Performed by Nursing Services 03/01/2020 20:42 EDT [facility] Blood CAPILLARY BLOOD / Unknown 03/01/2020 20:41 EDT 03/01/2020 20:42 EDT us Kevin Rinaldi MD POINT OF CARE TEST ORDERABLES F inal Result Performing Organization Address [facility] Co de Phone Number [facility] [address] [place] [address] * (ABNORMAL) POCT GLUCOSE, INTERFACED (03/01/2020 17:21 EDT) Glucose, POC 111(H) 70 - 100 mg/dL 03/01/2020 17:22 EDT [facility] engine boss ID [id number] 03/01/2020 17:22 EDT [facility] HN LAB POC COMMENT (GLUCOSE) Test Performed by Nursing Services 03/01/2020 17:22 EDT [facility] Blood CAPILLARY BLOOD / Unknown 03/01/2020 17:21 EDT 03/01/2020 17:22 EDT Kevin Rinaldi MD POINT OF CARE TEST ORDERABLES F inal Result [facility] [address] [place] [address] * (ABNORMAL) POCT GLUCOSE, INTERFACED (03/01/2020 11:16 EDT) Glucose, POC 115(H) 70 - 100 mg/dL 03/01/2020 11:21 EDT [facility] engine boss ID [id number] 03/01/2020 11:21 EDT [facility] HN LAB POC COMMENT (GLUCOSE) Test Performed by Nursing Services 03/01/2020 11:21 EDT [facility] Blood CAPILLARY BLOOD / Unknown 03/01/2020 11:16 EDT 03/01/2020 11:21 EDT Kevin Rinaldi MD POINT OF CARE TEST ORDERABLES F inal Result Performing Organization Address City/[facility]/ZIP Co de Phone Number [facility] [address] [place] [address] * (ABNORMAL) POCT GLUCOSE, INTERFACED (03/01/2020 8:44 EDT) Glucose, POC 147(H) 70 - 100 mg/dL 03/01/2020 8:44 EDT [facility] engine boss ID [id number] 03/01/2020 8:44 EDT [facility] HN LAB POC COMMENT (GLUCOSE) Test Performed by Nursing Services 03/01/2020 8:44 EDT [facility] Blood CAPILLARY BLOOD / Unknown 03/01/2020 8:44 EDT 03/01/2020 8:44 EDT Kevin Rinaldi MD POINT OF CARE TEST ORDERABLES F inal Result [facility] [address] [place] [address] * (ABNORMAL) ELECTROLYTES (03/01/2020 5:25 EDT) Sodium 135(L) 136 - 145 mEq/L 03/01/2020 6:41 EDT [facility] Potassium 4.6 3.5 - 5.0 mEq/L 03/01/2020 6:41 EDT [facility] Chloride 102 96 - 110 mEq/L 03/01/2020 6:41 EDT [facility] CO2 Total 23 22 - 32 mEq/L 03/01/2020 6:41 EDT [facility] Blood VENOUS BLOOD / Unknown Venipuncture / Unknown 03/01/2020 5:25 EDT 03/01/2020 6:10 EDT us Damon Eckert MD CHEMISTRY & BLOOD GAS ORDER [place] Final Result Performing Organization Address City/[facility]/ZIP Co de Phone Number [facility] [address] [place] [address] * (ABNORMAL) PHOSPHORUS (03/01/2020 5:25 EDT) Phosphorus 5.8(H) 2.5 - 4.5 mg/dL 03/01/2020 6:41 EDT [facility] Blood VENOUS BLOOD / Unknown Venipuncture / Unknown 03/01/2020 5:25 EDT 03/01/2020 6:10 EDT Parag Eid MD CHEMISTRY & BLOOD GAS ORDERAB LES Final Result Performing Organization Address City/[facility]/ZIP Co de Phone Number [facility] [facility] [address] [place] [address] * MAGNESIUM (03/01/2020 5:25 EDT) Magnesium 1.9 1.7 - 2.8 mg/dL 03/01/2020 6:41 EDT [facility] Blood VENOUS BLOOD / Unknown Venipuncture / Unknown 03/01/2020 5:25 EDT 03/01/2020 6:10 EDT Parag Eid MD CHEMISTRY & BLOOD GAS ORDERAB LES Final Result [facility] [address] [place] [address] * PROTIME (03/01/2020 5:25 EDT) Pathologist [facility] [place] I.N.R. 1.0 0.9 - 1.1 Ratio 03/01/2020 6:14 EDT [facility] Pro Time 12.0 10.3 - 13.4 secs 03/01/2020 6:14 EDT [facility] Blood VENOUS BLOOD / Unknown Venipuncture / Unknown 03/01/2020 5:25 EDT 03/01/2020 5:48 EDT Narrative [facility] - 03/01/2020 6:14 EDT Moderate Intensity Coumadin INR = 2.0-3.0 Adjustments in anticoagulant therapy dose should be based on the INR and NOT on the Protime. Parag Eid MD HEMATOLOGY & PF4 ORDERABLES F inal Result Performing Organization Address [facility] Co de Phone Number [facility] [address] [place] [address] * PTT (03/01/2020 5:25 EDT) [facility] PTT 35 26 - 37 secs 03/01/2020 6:14 EDT [facility] Blood VENOUS BLOOD / Unknown Venipuncture / Unknown 03/01/2020 5:25 EDT 03/01/2020 5:48 EDT Parag Eid MD HEMATOLOGY & PF4 ORDERABLES F inal Result Performing Organization Address City/[facility] Co de Phone Number [facility] [address] [place] [address] * BUN (03/01/2020 5:25 EDT) [facility] BUN 24 10 - 26 mg/dL 03/01/2020 6:41 EDT [facility] Blood VENOUS BLOOD / Unknown Venipuncture / Unknown 03/01/2020 5:25 EDT 03/01/2020 6:10 EDT Parag Eid MD CHEMISTRY & BLOOD GAS ORDERAB LES Final Result Performing Organization Address [facility] Co de Phone Number [facility] [address] [place] [address] * (ABNORMAL) CREATININE (03/01/2020 5:25 EDT) Creatinine 0.49(L) 0.52 - 1.04 mg/dL 03/01/2020 6:41 EDT [facility] eGFR 112 >60 mL/min/1.7 3m2 03/01/2020 6:41 EDT [facility] Comment:eGFR calculated mickey redd CKD-EPI equation for non- Americans. Multiply eGFR by 1.16 for patients. Blood VENOUS BLOOD / Unknown Venipuncture / Unknown 03/01/2020 5:25 EDT 03/01/2020 6:10 EDT Joyce Lee MD CHEMISTRY & BLOOD GAS ORDERABLES Final Result Performing Organization Address [facility] de Phone Number [facility] [address] [place] [address] * (ABNORMAL) COMPLETE BLOOD COUNT (03/01/2020 5:25 EDT) WBC 6.36 4.00 - 12.40 K/cmm 03/01/2020 5:57 EDT [facility] RBC 3.72(L) 3.86 - 5.04 M/cmm 03/01/2020 5:57 EDT [facility] Hemoglobin 12.1 11.6 - 15.2 gm/dL 03/01/2020 5:57 EDT [facility] HCT 36.8 34.9 - 44.4 % 03/01/2020 5:57 EDT [facility] MCV 99(H) 81 - 98 fl 03/01/2020 5:57 EDT [facility] MCH 32.5 26.7 - 33.3 pg 03/01/2020 5:57 EDT [facility] MCHC 32.9 32.1 - 35.9 gm/dL 03/01/2020 5:57 EDT [facility] RDW-CV 13.5 <14.7 % 03/01/2020 5:57 EDT [facility] RDW-SD 50.2 <50.4 fl 03/01/2020 5:57 EDT [facility] PLT 441(H) 141 - 377 K/cmm 03/01/2020 5:57 EDT [facility] MPV 11.1 9.5 - 12.7 fl 03/01/2020 5:57 EDT [facility] Blood VENOUS BLOOD / Unknown Venipuncture / Unknown 03/01/2020 5:25 EDT 03/01/2020 5:49 EDT us Joyce Lee MD HEMATOLOGY & PF4 ORDERABLES Shannon l Result Performing Organization Address City/[facility]/ZIP Co de Phone Number [facility] [address] [place] [address] * (ABNORMAL) POCT GLUCOSE, INTERFACED (02/29/2020 20:54 EDT) Glucose, POC 103(H) 70 - 100 mg/dL 02/29/2020 20:55 EDT [facility] engine boss ID [id number] 02/29/2020 20:55 EDT [facility] HN LAB POC COMMENT (GLUCOSE) Test Performed by Nursing Services 02/29/2020 20:55 EDT [facility] Blood CAPILLARY BLOOD / Unknown 02/29/2020 20:54 EDT 02/29/2020 20:55 EDT us Kevin Rinaldi MD POINT OF CARE TEST ORDERABLES F inal Result [facility] [address] [place] [address] * (ABNORMAL) POCT GLUCOSE, INTERFACED (02/29/2020 16:42 EDT) Glucose, POC 115(H) 70 - 100 mg/dL 02/29/2020 16:44 EDT [facility] engine boss ID [id number] 02/29/2020 16:44 EDT [facility] HN LAB POC COMMENT (GLUCOSE) Test Performed by Nursing Services 02/29/2020 16:44 EDT [facility] Blood CAPILLARY BLOOD / Unknown 02/29/2020 16:42 EDT 02/29/2020 16:44 EDT us Kevin Rinaldi MD POINT OF CARE TEST ORDERABLES F inal Result [facility] [address] [place] [address] * ECG REPORT - SCANNED (02/29/2020 12:52 EDT) 02/29/2020 12:5 2 EDT us Scan 2 Transport Specialist PROCEDURE/MINOR SURGICAL OR DERABLES Final Result * (ABNORMAL) POCT GLUCOSE, INTERFACED (02/29/2020 11:12 EDT) Glucose, POC 135(H) 70 - 100 mg/dL 02/29/2020 11:17 EDT [facility] engine boss ID [id number] 02/29/2020 11:17 EDT [facility] HN LAB POC COMMENT (GLUCOSE) Test Performed by Nursing Services 02/29/2020 11:17 EDT [facility] Blood CAPILLARY BLOOD / Unknown 02/29/2020 11:12 EDT 02/29/2020 11:17 EDT us Kevin Rinaldi MD POINT OF CARE TEST ORDERABLES F inal Result [facility] [address] [place] [address] * (ABNORMAL) POCT GLUCOSE, INTERFACED (02/29/2020 8:12 EDT) Glucose, POC 117(H) 70 - 100 mg/dL 02/29/2020 8:13 EDT [facility] engine boss ID [id number] 02/29/2020 8:13 EDT [facility] HN LAB POC COMMENT (GLUCOSE) Test Performed by Nursing Services 02/29/2020 8:13 EDT [facility] Blood CAPILLARY BLOOD / Unknown 02/29/2020 8:12 EDT 02/29/2020 8:13 EDT us Kevin Rinaldi MD POINT OF CARE TEST ORDERABLES F inal Result Performing Organization Address [facility] de Phone Number [facility] [address] [place] [address] * (ABNORMAL) ELECTROLYTES (02/29/2020 6:39 EDT) Sodium 133(L) 136 - 145 mEq/L 02/29/2020 7:19 EDT [facility] Potassium 4.6 3.5 - 5.0 mEq/L 02/29/2020 7:19 EDT [facility] Chloride 102 96 - 110 mEq/L 02/29/2020 7:19 EDT [facility] CO2 Total 24 22 - 32 mEq/L 02/29/2020 7:19 EDT [facility] Blood VENOUS BLOOD / Unknown Venipuncture / Unknown 02/29/2020 6:39 EDT 02/29/2020 6:50 EDT us Damon Eckert MD CHEMISTRY & BLOOD GAS ORDER [place] Final Result Performing Organization Address [facility] Co de Phone Number [facility] [address] [place] [address] * (ABNORMAL) PHOSPHORUS (02/29/2020 6:39 EDT) Phosphorus 4.6(H) 2.5 - 4.5 mg/dL 02/29/2020 7:19 EDT [facility] Blood VENOUS BLOOD / Unknown Venipuncture / Unknown 02/29/2020 6:39 EDT 02/29/2020 6:50 EDT us Parag Eid MD CHEMISTRY & BLOOD GAS ORDERAB LES Final Result [facility] [address] [place] [address] * MAGNESIUM (02/29/2020 6:39 EDT) Magnesium 1.8 1.7 - 2.8 mg/dL 02/29/2020 7:19 EDT [facility] Blood VENOUS BLOOD / Unknown Venipuncture / Unknown 02/29/2020 6:39 EDT 02/29/2020 6:50 EDT Parag Eid MD CHEMISTRY & BLOOD GAS ORDERAB LES Final Result Performing Organization Address City/[facility]/ZIP Co de Phone Number [facility] [address] [place] [address] * PROTIME (02/29/2020 6:39 EDT) Pathologist [facility] [place] I.N.R. 1.1 0.9 - 1.1 Ratio 02/29/2020 7:17 EDT [facility] Pro Time 12.8 10.3 - 13.4 secs 02/29/2020 7:17 EDT [facility] Blood VENOUS BLOOD / Unknown Venipuncture / Unknown 02/29/2020 6:39 EDT 02/29/2020 6:51 EDT Narrative [facility] - 02/29/2020 7:17 EDT Moderate Intensity Coumadin INR = 2.0-3.0 Adjustments in anticoagulant therapy dose should be based on the INR and NOT on the Protime. Parag Eid MD HEMATOLOGY & PF4 ORDERABLES F inal Result Performing Organization Address City/[facility]/ZIP Co de Phone Number [facility] [address] [place] [address] * PTT (02/29/2020 6:39 EDT) Pathologist [facility] [place] PTT 37 26 - 37 secs 02/29/2020 7:17 EDT [facility] Blood VENOUS BLOOD / Unknown Venipuncture / Unknown 02/29/2020 6:39 EDT 02/29/2020 6:51 EDT Parag Eid MD HEMATOLOGY & PF4 ORDERABLES F inal Result [facility] [address] [place] [address] * BUN (02/29/2020 6:39 EDT) BUN 19 10 - 26 mg/dL 02/29/2020 7:19 EDT [facility] Blood VENOUS BLOOD / Unknown Venipuncture / Unknown 02/29/2020 6:39 EDT 02/29/2020 6:50 EDT us Parag Eid MD CHEMISTRY & BLOOD GAS ORDERAB LES Final Result Performing Organization Address [facility] de Phone Number [facility] [address] [place] [address] * (ABNORMAL) CREATININE (02/29/2020 6:39 EDT) Creatinine 0.49(L) 0.52 - 1.04 mg/dL 02/29/2020 7:19 EDT [facility] eGFR 112 >60 mL/min/1.7 3m2 02/29/2020 7:19 EDT [facility] Comment:eGFR calculated mickey redd CKD-EPI equation for non- Americans. Multiply eGFR by 1.16 for patients. Blood VENOUS BLOOD / Unknown Venipuncture / Unknown 02/29/2020 6:39 EDT 02/29/2020 6:50 EDT Joyce Lee MD CHEMISTRY & BLOOD GAS ORDERABLES Final Result Performing Organization Address [facility]/ZIP Co de Phone Number [facility] [address] [place] [address] * (ABNORMAL) COMPLETE BLOOD COUNT (02/29/2020 6:39 EDT) WBC 6.86 4.00 - 12.40 K/cmm 02/29/2020 7:02 [facility] RBC 3.78(L) 3.86 - 5.04 M/cmm 02/29/2020 7:02 [facility] Hemoglobin 12.3 11.6 - 15.2 gm/dL 02/29/2020 7:02 [facility] HCT 37.0 34.9 - 44.4 % 02/29/2020 7:02 [facility] MCV 98 81 - 98 fl 02/29/2020 7:02 [facility] MCH 32.5 26.7 - 33.3 pg 02/29/2020 7:02 [facility] MCHC 33.2 32.1 - 35.9 gm/dL 02/29/2020 7:02 [facility] RDW-CV 13.5 <14.7 % 02/29/2020 7:02 [facility] RDW-SD 49.0 <50.4 fl 02/29/2020 7:02 [facility] PLT 438(H) 141 - 377 K/cmm 02/29/2020 7:02 [facility] MPV 10.5 9.5 - 12.7 fl 02/29/2020 7:02 [facility] Blood VENOUS BLOOD / Unknown Venipuncture / Unknown 02/29/2020 6:39 EDT 02/29/2020 6:51 EDT us Joyce eLe MD HEMATOLOGY & PF4 ORDERABLES Shannon l Result [facility] [address] [place] [address] * (ABNORMAL) POCT GLUCOSE, INTERFACED (02/28/2020 20:40 EDT) Glucose, POC 134(H) 70 - 100 mg/dL 02/28/2020 20:54 EDT [facility] engine boss ID [id number] 02/28/2020 20:54 EDT [facility] HN LAB POC COMMENT (GLUCOSE) Test Performed by Nursing Services 02/28/2020 20:54 EDT [facility] Blood CAPILLARY BLOOD / Unknown 02/28/2020 20:40 EDT 02/28/2020 20:54 EDT us Kevin Rinalid MD POINT OF CARE TEST ORDERABLES F inal Result Performing Organization Address City/[facility]/ZIP Co de Phone Number [facility] [address] [place] [address] * (ABNORMAL) POCT GLUCOSE, INTERFACED (02/28/2020 17:06 EDT) Glucose, POC 134(H) 70 - 100 mg/dL 02/28/2020 21:25 EDT [facility] engine boss ID [id number] 02/28/2020 21:25 EDT [facility] HN LAB POC COMMENT (GLUCOSE) Test Performed by Nursing Services 02/28/2020 21:25 EDT [facility] Blood CAPILLARY BLOOD / Unknown 02/28/2020 17:06 EDT 02/28/2020 21:25 EDT us Kevin Rinaldi MD POINT OF CARE TEST ORDERABLES F inal Result Performing Organization Address [facility] Co de Phone Number [facility] [address] [place] [address] * (ABNORMAL) POCT GLUCOSE, INTERFACED (02/28/2020 12:11 EDT) Glucose, POC 107(H) 70 - 100 mg/dL 02/28/2020 12:16 EDT [facility] engine boss ID [id number] 02/28/2020 12:16 EDT [facility] HN LAB POC COMMENT (GLUCOSE) Test Performed by Nursing Services 02/28/2020 12:16 EDT [facility] Blood CAPILLARY BLOOD / Unknown 02/28/2020 12:11 EDT 02/28/2020 12:16 EDT us Kevin Rinaldi MD POINT OF CARE TEST ORDERABLES F inal Result [facility] [address] [place] [address] * (ABNORMAL) POCT GLUCOSE, INTERFACED (02/28/2020 8:12 EDT) Glucose, POC 117(H) 70 - 100 mg/dL 02/28/2020 8:16 EDT [facility] engine boss ID [id number] 02/28/2020 8:16 EDT [facility] HN LAB POC COMMENT (GLUCOSE) Test Performed by Nursing Services 02/28/2020 8:16 EDT [facility] Blood CAPILLARY BLOOD / Unknown 02/28/2020 8:12 EDT 02/28/2020 8:16 EDT us Kevin Rinaldi MD POINT OF CARE TEST ORDERABLES F inal Result Performing Organization Address [facility] Co de Phone Number [facility] [address] [place] [address] * (ABNORMAL) ELECTROLYTES (02/28/2020 5:49 EDT) Sodium 135(L) 136 - 145 mEq/L 02/28/2020 6:34 EDT [facility] Potassium 4.0 3.5 - 5.0 mEq/L 02/28/2020 6:34 EDT [facility] Chloride 103 96 - 110 mEq/L 02/28/2020 6:34 EDT [facility] CO2 Total 24 22 - 32 mEq/L 02/28/2020 6:34 EDT [facility] Blood VENOUS BLOOD / Unknown Venipuncture / Unknown 02/28/2020 5:49 EDT 02/28/2020 6:09 EDT us Damon Eckert MD CHEMISTRY & BLOOD GAS ORDER [place] Final Result Performing Organization Address City/[facility]/ZIP Co de Phone Number [facility] [address] [place] [address] * PHOSPHORUS (02/28/2020 5:49 EDT) Phosphorus 3.9 2.5 - 4.5 mg/dL 02/28/2020 6:34 EDT [facility] Blood VENOUS BLOOD / Unknown Venipuncture / Unknown 02/28/2020 5:49 EDT 02/28/2020 6:09 EDT us Parag Eid MD CHEMISTRY & BLOOD GAS ORDERAB LES Final Result Performing Organization Address City/[facility]/ZIP Co de Phone Number [facility] [address] [place] [address] * MAGNESIUM (02/28/2020 5:49 EDT) Magnesium 1.8 1.7 - 2.8 mg/dL 02/28/2020 6:34 EDT [facility] Blood VENOUS BLOOD / Unknown Venipuncture / Unknown 02/28/2020 5:49 EDT 02/28/2020 6:09 EDT us Parag Eid MD CHEMISTRY & BLOOD GAS ORDERAB LES Final Result Performing Organization Address [facility] de Phone Number [facility] [address] [place] [address] * PROTIME (02/28/2020 5:49 EDT) I.N.R. 1.1 0.9 - 1.1 Ratio 02/28/2020 6:27 EDT [facility] Pro Time 12.9 10.3 - 13.4 secs 02/28/2020 6:27 EDT [facility] Blood VENOUS BLOOD / Unknown Venipuncture / Unknown 02/28/2020 5:49 EDT 02/28/2020 6:10 EDT Narrative [facility] - 02/28/2020 6:27 EDT Moderate Intensity Coumadin INR = 2.0-3.0 Adjustments in anticoagulant therapy dose should be based on the INR and NOT on the Protime. us Parag Eid MD HEMATOLOGY & PF4 ORDERABLES F inal Result Performing Organization Address City/[facility]/ZIP Co de Phone Number [facility] [address] [place] [address] * PTT (02/28/2020 5:49 EDT) PTT 35 26 - 37 secs 02/28/2020 6:27 EDT [facility] Blood VENOUS BLOOD / Unknown Venipuncture / Unknown 02/28/2020 5:49 EDT 02/28/2020 6:10 EDT Parag Eid MD HEMATOLOGY & PF4 ORDERABLES F inal Result [facility] [address] [place] [address] * BUN (02/28/2020 5:49 EDT) Pathologist [facility] [place] BUN 19 10 - 26 mg/dL 02/28/2020 6:34 EDT [facility] Blood VENOUS BLOOD / Unknown Venipuncture / Unknown 02/28/2020 5:49 EDT 02/28/2020 6:09 EDT Parag Eid MD CHEMISTRY & BLOOD GAS ORDERAB LES Final Result [facility] [address] [place] [address] * (ABNORMAL) CREATININE (02/28/2020 5:49 EDT) Creatinine 0.44(L) 0.52 - 1.04 mg/dL 02/28/2020 6:34 EDT [facility] eGFR 116 >60 mL/min/1.7 3m2 02/28/2020 6:34 EDT [facility] Comment:eGFR calculated mickey redd CKD-EPI equation for non- Americans. Multiply eGFR by 1.16 for patients. Blood VENOUS BLOOD / Unknown Venipuncture / Unknown 02/28/2020 5:49 EDT 02/28/2020 6:09 EDT us Joyce Lee MD CHEMISTRY & BLOOD GAS ORDERABLES Final Result Performing Organization Address City/[facility]/ZIP Co de Phone Number [facility] [address] [place] [address] * (ABNORMAL) COMPLETE BLOOD COUNT (02/28/2020 5:49 EDT) WBC 8.74 4.00 - 12.40 K/cmm 02/28/2020 6:20 EDT [facility] RBC 3.66(L) 3.86 - 5.04 M/cmm 02/28/2020 6:20 EDT [facility] Hemoglobin 11.8 11.6 - 15.2 gm/dL 02/28/2020 6:20 EDT [facility] HCT 35.4 34.9 - 44.4 % 02/28/2020 6:20 EDT [facility] MCV 97 81 - 98 fl 02/28/2020 6:20 EDT [facility] MCH 32.2 26.7 - 33.3 pg 02/28/2020 6:20 EDT [facility] MCHC 33.3 32.1 - 35.9 gm/dL 02/28/2020 6:20 EDT [facility] LABORATORY SERVICES RDW-CV 13.4 <14.7 % 02/28/2020 6:20 EDT [facility] LABORATORY SERVICES RDW-SD 48.4 <50.4 fl 02/28/2020 6:20 EDT [facility] LABORATORY SERVICES PLT 446(H) 141 - 377 K/cmm 02/28/2020 6:20 EDT [facility] LABORATORY SERVICES MPV 10.9 9.5 - 12.7 fl 02/28/2020 6:20 EDT [facility] LABORATORY SERVICES Blood VENOUS BLOOD / Unknown Venipuncture / Unknown 02/28/2020 5:49 EDT 02/28/2020 6:10 EDT us Joyce Lee MD HEMATOLOGY & PF4 ORDERABLES Shannon l Result Performing Organization Address City/[facility]/ZIP Co de Phone Number [facility] LABORATORY SERVICES [address] [place] [address] * (ABNORMAL) POCT GLUCOSE, INTERFACED (02/27/2020 21:34 EDT) Glucose, POC 137(H) 70 - 100 mg/dL 02/27/2020 21:35 EDT [facility] LABORATORY engine boss ID [id number] 02/27/2020 21:35 EDT [facility] LABORATORY SERVICES HN LAB POC COMMENT (GLUCOSE) Test Performed by Nursing Services 02/27/2020 21:35 EDT [facility] Blood CAPILLARY BLOOD / Unknown 02/27/2020 21:34 EDT 02/27/2020 21:35 EDT Kevin Rinaldi MD POINT OF CARE TEST ORDERABLES F inal Result Performing Organization Address [facility] Co de Phone Number [facility] [address] [place] [address] * POCT GLUCOSE, INTERFACED (02/27/2020 17:33 EDT) Glucose, POC 97 70 - 100 mg/dL 02/27/2020 18:18 EDT [facility] engine boss ID [id number] 02/27/2020 18:18 EDT [facility] HN LAB POC COMMENT (GLUCOSE) Test Performed by Nursing Services 02/27/2020 18:18 EDT [facility] Blood CAPILLARY BLOOD / Unknown 02/27/2020 17:33 EDT 02/27/2020 18:18 EDT us Kevin Rinaldi MD POINT OF CARE TEST ORDERABLES F inal Result Performing Organization Address [facility]/ZIP Co de Phone Number [facility] [address] [place] [address] * (ABNORMAL) POCT GLUCOSE, INTERFACED (02/27/2020 11:54 EDT) Glucose, POC 142(H) 70 - 100 mg/dL 02/27/2020 13:13 EDT [facility] engine boss ID [id number] 02/27/2020 13:13 EDT [facility] HN LAB POC COMMENT (GLUCOSE) Test Performed by Nursing Services 02/27/2020 13:13 EDT [facility] Blood CAPILLARY BLOOD / Unknown 02/27/2020 11:54 EDT 02/27/2020 13:13 EDT us Kevin Rinaldi MD POINT OF CARE TEST ORDERABLES F inal Result Performing Organization Address [facility]/ZIP Co de Phone Number [facility] [address] [place] [address] * POCT GLUCOSE, INTERFACED (02/27/2020 8:32 EDT) Glucose, POC 95 70 - 100 mg/dL 02/27/2020 8:32 EDT [facility] engine boss ID [id number] 02/27/2020 8:32 EDT [facility] HN LAB POC COMMENT (GLUCOSE) Test Performed by Nursing Services 02/27/2020 8:32 EDT [facility] Blood CAPILLARY BLOOD / Unknown 02/27/2020 8:32 EDT 02/27/2020 8:32 EDT us Kevin Rinaldi MD POINT OF CARE TEST ORDERABLES F inal Result Performing Organization Address [facility] Co de Phone Number [facility] [address] [place] [address] * ELECTROLYTES (02/27/2020 5:45 EDT) Sodium 136 136 - 145 mEq/L 02/27/2020 6:58 EDT [facility] Potassium 4.0 3.5 - 5.0 mEq/L 02/27/2020 6:58 EDT [facility] Chloride 103 96 - 110 mEq/L 02/27/2020 6:58 EDT [facility] CO2 Total 24 22 - 32 mEq/L 02/27/2020 6:58 EDT [facility] Blood VENOUS BLOOD / Unknown Venipuncture / Unknown 02/27/2020 5:45 EDT 02/27/2020 6:26 EDT us Damon Eckert MD CHEMISTRY & BLOOD GAS ORDER [place] Final Result [facility] [address] [place] [address] * (ABNORMAL) PHOSPHORUS (02/27/2020 5:45 EDT) Phosphorus 4.6(H) 2.5 - 4.5 mg/dL 02/27/2020 6:58 EDT [facility] Blood VENOUS BLOOD / Unknown Venipuncture / Unknown 02/27/2020 5:45 EDT 02/27/2020 6:26 EDT Parag Eid MD CHEMISTRY & BLOOD GAS ORDERAB LES Final Result Performing Organization Address City/[facility] Co de Phone Number [facility] [address] [place] [address] * MAGNESIUM (02/27/2020 5:45 EDT) Magnesium 1.8 1.7 - 2.8 mg/dL 02/27/2020 6:58 EDT [facility] Blood VENOUS BLOOD / Unknown Venipuncture / Unknown 02/27/2020 5:45 EDT 02/27/2020 6:26 EDT Parag Eid MD CHEMISTRY & BLOOD GAS ORDERAB LES Final Result Performing Organization Address [facility] Co de Phone Number [facility] [address] [place] [address] * PROTIME (02/27/2020 5:45 EDT) I.N.R. 1.1 0.9 - 1.1 Ratio 02/27/2020 6:42 EDT [facility] Pro Time 12.7 10.3 - 13.4 secs 02/27/2020 6:42 EDT [facility] Blood VENOUS BLOOD / Unknown Venipuncture / Unknown 02/27/2020 5:45 EDT 02/27/2020 6:22 EDT Narrative [facility] - 02/27/2020 6:42 EDT Moderate Intensity Coumadin INR = 2.0-3.0 Adjustments in anticoagulant therapy dose should be based on the INR and NOT on the Protime. us Parag Eid MD HEMATOLOGY & PF4 ORDERABLES F inal Result Performing Organization Address [facility] Co de Phone Number [facility] [address] [place] [address] * PTT (02/27/2020 5:45 EDT) PTT 35 26 - 37 secs 02/27/2020 6:42 EDT [facility] Blood VENOUS BLOOD / Unknown Venipuncture / Unknown 02/27/2020 5:45 EDT 02/27/2020 6:22 EDT us Parag Eid MD HEMATOLOGY & PF4 ORDERABLES F inal Result Performing Organization Address [facility] Co de Phone Number [facility] [address] [place] [address] * BUN (02/27/2020 5:45 EDT) BUN 17 10 - 26 mg/dL 02/27/2020 6:58 EDT [facility] Blood VENOUS BLOOD / Unknown Venipuncture / Unknown 02/27/2020 5:45 EDT 02/27/2020 6:26 EDT us Parag Eid MD CHEMISTRY & BLOOD GAS ORDERAB LES Final Result Performing Organization Address [facility] Co de Phone Number [facility] [address] [place] [address] * (ABNORMAL) CREATININE (02/27/2020 5:45 EDT) Creatinine 0.49(L) 0.52 - 1.04 mg/dL 02/27/2020 6:58 EDT [facility] eGFR 112 >60 mL/min/1.7 3m2 02/27/2020 6:58 EDT [facility] Comment:eGFR calculated mickey redd CKD-EPI equation for non- Americans. Multiply eGFR by 1.16 for patients. Blood VENOUS BLOOD / Unknown Venipuncture / Unknown 02/27/2020 5:45 EDT 02/27/2020 6:26 EDT us Joyce Lee MD CHEMISTRY & BLOOD GAS ORDERABLES Final Result [facility] [address] [place] [address] * (ABNORMAL) COMPLETE BLOOD COUNT (02/27/2020 5:45 EDT) WBC 9.42 4.00 - 12.40 K/cmm 02/27/2020 6:36 EDT [facility] RBC 3.59(L) 3.86 - 5.04 M/cmm 02/27/2020 6:36 [facility] Hemoglobin 11.5(L) 11.6 - 15.2 gm/dL 02/27/2020 6:36 [facility] HCT 34.6(L) 34.9 - 44.4 % 02/27/2020 6:36 [facility] MCV 96 81 - 98 fl 02/27/2020 6:36 [facility] MCH 32.0 26.7 - 33.3 pg 02/27/2020 6:36 [facility] MCHC 33.2 32.1 - 35.9 gm/dL 02/27/2020 6:36 [facility] RDW-CV 13.4 <14.7 % 02/27/2020 6:36 [facility] RDW-SD 48.1 <50.4 fl 02/27/2020 6:36 [facility] PLT 438(H) 141 - 377 K/cmm 02/27/2020 6:36 [facility] MPV 10.9 9.5 - 12.7 fl 02/27/2020 6:36 [facility] Blood VENOUS BLOOD / Unknown Venipuncture / Unknown 02/27/2020 5:45 EDT 02/27/2020 6:23 EDT us Joyce Lee MD HEMATOLOGY & PF4 ORDERABLES Shannon l Result [facility] [address] [place] [address] * (ABNORMAL) POCT GLUCOSE, INTERFACED (02/26/2020 21:20 EDT) Glucose, POC 101(H) 70 - 100 mg/dL 02/26/2020 21:29 EDT [facility] engine boss ID [id number] 02/26/2020 21:29 EDT [facility] HN LAB POC COMMENT (GLUCOSE) Test Performed by Nursing Services 02/26/2020 21:29 EDT [facility] Blood CAPILLARY BLOOD / Unknown 02/26/2020 21:20 EDT 02/26/2020 21:29 EDT us Kevin Rinaldi MD POINT OF CARE TEST ORDERABLES F inal Result Performing Organization Address City/[facility]/ZIP Co de Phone Number [facility] [address] [place] [address] * (ABNORMAL) POCT GLUCOSE, INTERFACED (02/26/2020 16:52 EDT) Glucose, POC 101(H) 70 - 100 mg/dL 02/26/2020 16:56 EDT [facility] engine boss ID [id number] 02/26/2020 16:56 EDT [facility] HN LAB POC COMMENT (GLUCOSE) Test Performed by Nursing Services 02/26/2020 16:56 EDT [facility] Blood CAPILLARY BLOOD / Unknown 02/26/2020 16:52 EDT 02/26/2020 16:56 EDT us Kevin Rinaldi MD POINT OF CARE TEST ORDERABLES F inal Result [facility] [address] [place] [address] * (ABNORMAL) POCT GLUCOSE, INTERFACED (02/26/2020 11:52 EDT) Glucose, POC 118(H) 70 - 100 mg/dL 02/26/2020 11:57 EDT [facility] engine boss ID [id number] 02/26/2020 11:57 EDT [facility] HN LAB POC COMMENT (GLUCOSE) Test Performed by Nursing Services 02/26/2020 11:57 EDT [facility] Blood CAPILLARY BLOOD / Unknown 02/26/2020 11:52 EDT 02/26/2020 11:57 EDT us Kevin Rinaldi MD POINT OF CARE TEST ORDERABLES F inal Result [facility] [address] [place] [address] * PNH, PI-LINKED AG, B (02/26/2020 7:51 EDT) [facility] Interpretation SEE NOTE 03/01/2020 9:[address] [facility] Comment: Peripheral blood, flow cytometric immunophenotyping: [...] used for cell gating and interpretation. ??RBCs: [id number] and CD59. ??WBCs: CD14, CD15, CD16, CD24, CD33, CD45, FLAER. This test was developed using an analyte specific reagent. Its performance characteristics were determined by [facility] in a manner consistent with CLIA requirements. This test has not been cleared or approved by the U.S. Food and Drug Administration. [facility] RBC-Partial Ag Loss 0.00 0.00 - 0.99 % 03/01/2020 9:[address] [facility] RBC-Complete Ag Loss 0.00 0.00 - 0.01 % 03/01/2020 9:[address] [facility] PNH Granulocytes 0.00 0.00 - 0.01 % 03/01/2020 9:[address] [facility] PNH Monocytes 0.00 0.00 - 0.05 % 03/01/2020 9:[address] [facility] Comment: Test Performed by: [facility] - [address] [address] An/Ssn 2 4 Operator: Kain Shay M.D. Ph.D.; CLIA# [id number] Blood VENOUS BLOOD / Unknown Venipuncture / Unknown 02/26/2020 7:51 EDT 02/26/2020 8:05 EDT us Frank Hardwick MD HEMATOLOGY & PF4 ORDERABLES Fin al Result [address] [address] * (ABNORMAL) ELECTROLYTES (02/26/2020 7:51 EDT) Sodium 135(L) 136 - 145 mEq/L 02/26/2020 8:38 EDT [facility] Potassium 3.9 3.5 - 5.0 mEq/L 02/26/2020 8:38 EDT [facility] Chloride 105 96 - 110 mEq/L 02/26/2020 8:38 EDT [facility] CO2 Total 25 22 - 32 mEq/L 02/26/2020 8:38 EDT [facility] Blood VENOUS BLOOD / Unknown Venipuncture / Unknown 02/26/2020 7:51 EDT 02/26/2020 8:05 EDT us Damon Eckert MD CHEMISTRY & BLOOD GAS ORDER [place] Final Result [facility] [address] [place] [address] * PHOSPHORUS (02/26/2020 7:51 EDT) Phosphorus 4.0 2.5 - 4.5 mg/dL 02/26/2020 8:38 EDT [facility] Blood VENOUS BLOOD / Unknown Venipuncture / Unknown 02/26/2020 7:51 EDT 02/26/2020 8:05 EDT us Parag Eid MD CHEMISTRY & BLOOD GAS ORDERAB LES Final Result Performing Organization Address City/[facility]/ZIP Co de Phone Number [facility] [address] [place] [address] * MAGNESIUM (02/26/2020 7:51 EDT) Magnesium 1.9 1.7 - 2.8 mg/dL 02/26/2020 8:38 EDT [facility] Blood VENOUS BLOOD / Unknown Venipuncture / Unknown 02/26/2020 7:51 EDT 02/26/2020 8:05 EDT us Parag Eid MD CHEMISTRY & BLOOD GAS ORDERAB LES Final Result Performing Organization Address [facility] Co de Phone Number [facility] [address] [place] [address] * PROTIME (02/26/2020 7:51 EDT) I.N.R. 1.1 0.9 - 1.1 Ratio 02/26/2020 8:32 EDT [facility] Pro Time 12.8 10.3 - 13.4 secs 02/26/2020 8:32 EDT [facility] Blood VENOUS BLOOD / Unknown Venipuncture / Unknown 02/26/2020 7:51 EDT 02/26/2020 8:05 EDT Narrative [facility] - 02/26/2020 8:32 EDT Moderate Intensity Coumadin INR = 2.0-3.0 Adjustments in anticoagulant therapy dose should be based on the INR and NOT on the Protime. us Parag Eid MD HEMATOLOGY & PF4 ORDERABLES F inal Result Performing Organization Address City/[facility]/ZIP Co de Phone Number [facility] [address] [place] [address] * PTT (02/26/2020 7:51 EDT) PTT 34 26 - 37 secs 02/26/2020 8:32 EDT [facility] Blood VENOUS BLOOD / Unknown Venipuncture / Unknown 02/26/2020 7:51 EDT 02/26/2020 8:05 EDT Parag Eid MD HEMATOLOGY & PF4 ORDERABLES F inal Result [facility] [address] [place] [address] * BUN (02/26/2020 7:51 EDT) BUN 16 10 - 26 mg/dL 02/26/2020 8:38 EDT [facility] Blood VENOUS BLOOD / Unknown Venipuncture / Unknown 02/26/2020 7:51 EDT 02/26/2020 8:05 EDT Parag Eid MD CHEMISTRY & BLOOD GAS ORDERAB LES Final Result Performing Organization Address [facility]/ZIP Co de Phone Number [facility] [address] [place] [address] * (ABNORMAL) CREATININE (02/26/2020 7:51 EDT) Creatinine 0.47(L) 0.52 - 1.04 mg/dL 02/26/2020 8:38 EDT [facility] eGFR 114 >60 mL/min/1.7 3m2 02/26/2020 8:38 EDT [facility] Comment:eGFR calculated mickey redd CKD-EPI equation for non- Americans. Multiply eGFR by 1.16 for patients. Blood VENOUS BLOOD / Unknown Venipuncture / Unknown 02/26/2020 7:51 EDT 02/26/2020 8:05 EDT Joyce Lee MD CHEMISTRY & BLOOD GAS ORDERABLES Final Result [facility] [address] [place] [address] * (ABNORMAL) COMPLETE BLOOD COUNT (02/26/2020 7:51 EDT) WBC 9.19 4.00 - 12.40 K/cmm 02/26/2020 8:12 EDT [facility] RBC 3.26(L) 3.86 - 5.04 M/cmm 02/26/2020 8:12 EDT [facility] Hemoglobin 10.9(L) 11.6 - 15.2 gm/dL 02/26/2020 8:12 EDT [facility] HCT 31.6(L) 34.9 - 44.4 % 02/26/2020 8:12 EDT [facility] MCV 97 81 - 98 fl 02/26/2020 8:12 EDT [facility] MCH 33.4(H) 26.7 - 33.3 pg 02/26/2020 8:12 EDT [facility] MCHC 34.5 32.1 - 35.9 gm/dL 02/26/2020 8:12 EDT [facility] RDW-CV 13.6 <14.7 % 02/26/2020 8:12 EDT [facility] RDW-SD 48.6 <50.4 fl 02/26/2020 8:12 T [facility] PLT 376 141 - 377 K/cmm 02/26/2020 8:12 T [facility] MPV 10.2 9.5 - 12.7 fl 02/26/2020 8:12 EDT [facility] Blood VENOUS BLOOD / Unknown Venipuncture / Unknown 02/26/2020 7:51 EDT 02/26/2020 8:05 EDT us Joyce Lee MD HEMATOLOGY & PF4 ORDERABLES Shannon tiara Result [facility] [address] [place] [address] * POCT GLUCOSE, INTERFACED (02/25/2020 21:34 EDT) Glucose, POC 94 70 - 100 mg/dL 02/25/2020 21:39 EDT [facility] engine boss ID [id number] 02/25/2020 21:39 EDT [facility] HN LAB POC COMMENT (GLUCOSE) Test Performed by Nursing Services 02/25/2020 21:39 EDT [facility] Blood CAPILLARY BLOOD / Unknown 02/25/2020 21:34 EDT 02/25/2020 21:39 EDT Kevin Rinaldi MD POINT OF CARE TEST ORDERABLES F inal Result Performing Organization Address City/[facility]/ZIP Co de Phone Number [facility] [address] [place] [address] * (ABNORMAL) POCT GLUCOSE, INTERFACED (02/25/2020 19:15 EDT) Glucose, POC 124(H) 70 - 100 mg/dL 02/25/2020 19:15 EDT [facility] engine boss ID [id number] 02/25/2020 19:15 EDT [facility] HN LAB POC COMMENT (GLUCOSE) Test Performed by Nursing Services 02/25/2020 19:15 EDT [facility] Blood CAPILLARY BLOOD / Unknown 02/25/2020 19:15 EDT 02/25/2020 19:15 EDT Kevin Rinaldi MD POINT OF CARE TEST ORDERABLES F inal Result Performing Organization Address City/[facility]/ZIP Co de Phone Number [facility] [address] [place] [id number] * (ABNORMAL) POCT GLUCOSE, INTERFACED (02/25/2020 17:18 EDT) Glucose, POC 127(H) 70 - 100 mg/dL 02/25/2020 17:29 EDT [facility] engine boss ID [id number] 02/25/2020 17:29 EDT [facility] HN LAB POC COMMENT (GLUCOSE) Test Performed by Nursing Services 02/25/2020 17:29 EDT [facility] Blood CAPILLARY BLOOD / Unknown 02/25/2020 17:18 EDT 02/25/2020 17:29 EDT us Kevin Rinaldi MD POINT OF CARE TEST ORDERABLES F inal Result [facility] [address] [place] [address] * CT HEAD VENOGRAM W CONTRAST (02/25/2020 [...] andagree with the findings. Kevin Rinaldi MD IMG CT ORDERABLES Final Result * (ABNORMAL) POCT GLUCOSE, INTERFACED (02/25/2020 7:40 EDT) [facility] Glucose, POC 102(H) 70 - 100 mg/dL 02/25/2020 7:48 EDT [facility] engine boss ID [id number] 02/25/2020 7:48 EDT [facility] HN LAB POC COMMENT (GLUCOSE) Test Performed by Nursing Services 02/25/2020 7:48 EDT [facility] Blood CAPILLARY BLOOD / Unknown 02/25/2020 7:40 EDT 02/25/2020 7:48 EDT Kevin Rinaldi MD POINT OF CARE TEST ORDERABLES F inal Result [facility] [address] [place] [address] * ELECTROLYTES (02/25/2020 6:18 EDT) Sodium 137 136 - 145 mEq/L 02/25/2020 7:18 EDT [facility] Potassium 3.9 3.5 - 5.0 mEq/L 02/25/2020 7:18 EDT [facility] Chloride 107 96 - 110 mEq/L 02/25/2020 7:18 EDT [facility] CO2 Total 23 22 - 32 mEq/L 02/25/2020 7:18 EDT [facility] Blood VENOUS BLOOD / Unknown Venipuncture / Unknown 02/25/2020 6:18 EDT 02/25/2020 6:48 EDT us Damon Eckert MD CHEMISTRY & BLOOD GAS ORDER [place] Final Result Performing Organization Address [facility] Co de Phone Number [facility] [address] [place] [address] * PHOSPHORUS (02/25/2020 6:18 EDT) Phosphorus 3.9 2.5 - 4.5 mg/dL 02/25/2020 7:18 EDT [facility] Blood VENOUS BLOOD / Unknown Venipuncture / Unknown 02/25/2020 6:18 EDT 02/25/2020 6:48 EDT Parag Eid MD CHEMISTRY & BLOOD GAS ORDERAB LES Final Result Performing Organization Address City/[facility]/ZIP Co de Phone Number [facility] [address] [place] [address] * MAGNESIUM (02/25/2020 6:18 EDT) Magnesium 2.0 1.7 - 2.8 mg/dL 02/25/2020 7:18 EDT [facility] Blood VENOUS BLOOD / Unknown Venipuncture / Unknown 02/25/2020 6:18 EDT 02/25/2020 6:48 EDT us Parag Eid MD CHEMISTRY & BLOOD GAS ORDERAB LES Final Result [facility] [address] [place] [address] * PROTIME (02/25/2020 6:18 EDT) I.N.R. 1.1 0.9 - 1.1 Ratio 02/25/2020 7:07 EDT [facility] Pro Time 13.3 10.3 - 13.4 secs 02/25/2020 7:07 EDT [facility] Blood VENOUS BLOOD / Unknown Venipuncture / Unknown 02/25/2020 6:18 EDT 02/25/2020 6:48 EDT Narrative [facility] - 02/25/2020 7:07 EDT Moderate Intensity Coumadin INR = 2.0-3.0 Adjustments in anticoagulant therapy dose should be based on the INR and NOT on the Protime. us Parag Eid MD HEMATOLOGY & PF4 ORDERABLES F inal Result [facility] [address] [place] [address] * PTT (02/25/2020 6:18 EDT) PTT 35 26 - 37 secs 02/25/2020 7:07 EDT [facility] Blood VENOUS BLOOD / Unknown Venipuncture / Unknown 02/25/2020 6:18 EDT 02/25/2020 6:48 EDT Parag Eid MD HEMATOLOGY & PF4 ORDERABLES F inal Result [facility] [address] [place] [address] * BUN (02/25/2020 6:18 EDT) BUN 16 10 - 26 mg/dL 02/25/2020 7:18 EDT [facility] Blood VENOUS BLOOD / Unknown Venipuncture / Unknown 02/25/2020 6:18 EDT 02/25/2020 6:48 EDT Parag Eid MD CHEMISTRY & BLOOD GAS ORDERAB LES Final Result Performing Organization Address [facility] Co de Phone Number [facility] [address] [place] [address] * (ABNORMAL) CREATININE (02/25/2020 6:18 EDT) Creatinine 0.45(L) 0.52 - 1.04 mg/dL 02/25/2020 7:18 EDT [facility] eGFR 116 >60 mL/min/1.7 3m2 02/25/2020 7:18 EDT [facility] Comment:eGFR calculated mickey redd CKD-EPI equation for non- Americans. Multiply eGFR by 1.16 for patients. Blood VENOUS BLOOD / Unknown Venipuncture / Unknown 02/25/2020 6:18 EDT 02/25/2020 6:48 EDT Joyce Lee MD CHEMISTRY & BLOOD GAS ORDERABLES Final Result Performing Organization Address [facility] Co de Phone Number [facility] [address] [place] [address] * (ABNORMAL) COMPLETE BLOOD COUNT (02/25/2020 6:18 EDT) WBC 8.98 4.00 - 12.40 K/cmm 02/25/2020 6:58 EDT [facility] RBC 3.44(L) 3.86 - 5.04 M/cmm 02/25/2020 6:58 EDT [facility] Hemoglobin 11.3(L) 11.6 - 15.2 gm/dL 02/25/2020 6:58 T [facility] HCT 32.8(L) 34.9 - 44.4 % 02/25/2020 6:58 T [facility] MCV 95 81 - 98 fl 02/25/2020 6:58 EDT [facility] MCH 32.8 26.7 - 33.3 pg 02/25/2020 6:58 T [facility] MCHC 34.5 32.1 - 35.9 gm/dL 02/25/2020 6:58 EDT [facility] RDW-CV 13.7 <14.7 % 02/25/2020 6:58 EDT [facility] RDW-SD 47.8 <50.4 fl 02/25/2020 6:58 EDT [facility] PLT 365 141 - 377 K/cmm 02/25/2020 6:58 EDT [facility] MPV 10.6 9.5 - 12.7 fl 02/25/2020 6:58 EDT [facility] Blood VENOUS BLOOD / Unknown Venipuncture / Unknown 02/25/2020 6:18 EDT 02/25/2020 6:48 EDT us Joyce Lee MD HEMATOLOGY & PF4 ORDERABLES Shannon l Result Performing Organization Address City/[facility]/ZIP Co de Phone Number [facility] [address] [place] [address] * POCT GLUCOSE, INTERFACED (02/24/2020 21:00 EDT) Glucose, POC 94 70 - 100 mg/dL 02/24/2020 21:02 EDT [facility] engine boss ID [id number] 02/24/2020 21:02 EDT [facility] HN LAB POC COMMENT (GLUCOSE) Test Performed by Nursing Services 02/24/2020 21:02 EDT [facility] Blood CAPILLARY BLOOD / Unknown 02/24/2020 21:00 EDT 02/24/2020 21:02 EDT us Kevin Rinaldi MD POINT OF CARE TEST ORDERABLES F inal Result Performing Organization Address City/[facility]/ZIP Co de Phone Number [facility] [address] [place] [address] * (ABNORMAL) POCT GLUCOSE, INTERFACED (02/24/2020 17:33 EDT) Glucose, POC 137(H) 70 - 100 mg/dL 02/24/2020 17:38 EDT [facility] [place] engine boss ID [id number] 02/24/2020 17:38 EDT [facility] HN LAB POC COMMENT (GLUCOSE) Test Performed by Nursing Services 02/24/2020 17:38 EDT [facility] Blood CAPILLARY BLOOD / Unknown 02/24/2020 17:33 EDT 02/24/2020 17:38 EDT Claus Piña MD POINT OF CARE TEST ORDERABLES Fi nal Result Performing Organization Address City/[facility]/ZIP Co de Phone Number [facility] [address] [place] [address] * POCT GLUCOSE, INTERFACED (02/24/2020 16:16 EDT) Glucose, POC 92 70 - 100 mg/dL 02/24/2020 16:20 EDT [facility] engine boss ID [id number] 02/24/2020 16:20 EDT [facility] HN LAB POC COMMENT (GLUCOSE) Test Performed by Nursing Services 02/24/2020 16:20 EDT [facility] Blood CAPILLARY BLOOD / Unknown 02/24/2020 16:16 EDT 02/24/2020 16:20 EDT Kevin Rinaldi MD POINT OF CARE TEST ORDERABLES F inal Result Performing Organization Address [facility] Co de Phone Number [facility] [address] [place] [address] * POCT GLUCOSE, INTERFACED (02/24/2020 12:20 EDT) Glucose, POC 94 70 - 100 mg/dL 02/24/2020 12:21 EDT [facility] engine boss ID [id number] 02/24/2020 12:21 EDT [facility] HN LAB POC COMMENT (GLUCOSE) Test Performed by Nursing Services 02/24/2020 12:21 EDT [facility] Blood CAPILLARY BLOOD / Unknown 02/24/2020 12:20 EDT 02/24/2020 12:21 EDT Kevin Rinaldi MD POINT OF CARE TEST ORDERABLES F inal Result [facility] [address] [place] [address] * ECG REPORT - SCANNED (02/24/2020 11:30 EDT) 02/24/2020 11:3 0 EDT us Scan 2 Transport Specialist PROCEDURE/MINOR SURGICAL OR DERABLES Final Result * EKG 12-LEAD (02/24/2020 11:15 EDT) 02/24/2020 11:1 5 EDT Narrative [facility] EKG - 02/24/2020 11:20 EDT ? [facility] ? Test Date: ?2020-02-24 Pat Name: ? YNES WHITE ? Department: ?? [place] [facility] ? Room: ? [id number] Gender: ? Female ? Community Health Planning Director: ?? [id number] : ?1970 ? Requested By: NIEVES TUTTLE Order Number: [id number] ? [place] POP: ?? KAIN VARNER MD ? Measurements Intervals ?[place] ? Rate: ? 89 ? P: ?56 PA: ? 126 ?QRS: ?28 QRSD: ? 83 [...] Date: 2020-02-24 Pat Name: YNES WHITE Department: [place] Room: [id number] Gender: Female Community Health Planning Director: [id number] : 1970 Requested By: NIEVES TUTTLE Order Number: [id number] Reading MD: KAIN VARNER MD Measurements Intervals [place] Rate: 89 P: 56 PA: 126 QRS: 28 QRSD: 83 T: 19 QT: 368 QTc: 449 Interpretive Statements SINUS RHYTHM RSr' PATTERN IN LEAD V1 Compared to ECG 02/15/2020 01:52:35 The heart rate has increased I reviewed the tracing and have either agreed or edited the findings inthis report. Electronically Signed On 02-24-2020 11:20:59 EDT by KAIN ALMENDAREZ. us Parag Eid MD CARDIAC ECG ORDERABLES Final Result Performing Organization Address City/[facility]/ZIP Co de Phone Number [facility] EKG * POCT GLUCOSE, INTERFACED (02/24/2020 7:29 EDT) Glucose, POC 100 70 - 100 mg/dL 02/24/2020 7:30 EDT [facility] engine boss ID [id number] 02/24/2020 7:30 EDT [facility] HN LAB POC COMMENT (GLUCOSE) Test Performed by Nursing Services 02/24/2020 7:30 EDT [facility] Blood CAPILLARY BLOOD / Unknown 02/24/2020 7:29 EDT 02/24/2020 7:30 EDT us Kevin Rinaldi MD POINT OF CARE TEST ORDERABLES F inal Result Performing Organization Address City/[facility] Co de Phone Number [facility] [address] [place] [address] * ELECTROLYTES (02/24/2020 5:58 EDT) Sodium 136 136 - 145 mEq/L 02/24/2020 6:54 EDT [facility] Potassium 3.6 3.5 - 5.0 mEq/L 02/24/2020 6:54 EDT [facility] Chloride 107 96 - 110 mEq/L 02/24/2020 6:54 EDT [facility] CO2 Total 22 22 - 32 mEq/L 02/24/2020 6:54 EDT [facility] Blood VENOUS BLOOD / Unknown Venipuncture / Unknown 02/24/2020 5:58 EDT 02/24/2020 6:21 EDT us Damon Eckert MD CHEMISTRY & BLOOD GAS ORDER [place] Final Result [facility] [address] [place] [address] * PHOSPHORUS (02/24/2020 5:58 EDT) Phosphorus 3.8 2.5 - 4.5 mg/dL 02/24/2020 6:54 EDT [facility] Blood VENOUS BLOOD / Unknown Venipuncture / Unknown 02/24/2020 5:58 EDT 02/24/2020 6:21 EDT Parag Eid MD CHEMISTRY & BLOOD GAS ORDERAB LES Final Result Performing Organization Address City/[facility]/ZIP Co de Phone Number [facility] [address] [place] [address] * MAGNESIUM (02/24/2020 5:58 EDT) Magnesium 2.0 1.7 - 2.8 mg/dL 02/24/2020 6:54 EDT [facility] Blood VENOUS BLOOD / Unknown Venipuncture / Unknown 02/24/2020 5:58 EDT 02/24/2020 6:21 EDT Parag Eid MD CHEMISTRY & BLOOD GAS ORDERAB LES Final Result Performing Organization Address City/[facility]/ZIP Co de Phone Number [facility] [address] [place] [address] * (ABNORMAL) PROTIME (02/24/2020 5:58 EDT) I.N.R. 1.2(H) 0.9 - 1.1 Ratio 02/24/2020 6:53 EDT [facility] Pro Time 13.5(H) 10.3 - 13.4 secs 02/24/2020 6:53 EDT [facility] Blood VENOUS BLOOD / Unknown Venipuncture / Unknown 02/24/2020 5:58 EDT 02/24/2020 6:21 EDT Narrative [facility] - 02/24/2020 6:53 EDT Moderate Intensity Coumadin INR = 2.0-3.0 Adjustments in anticoagulant therapy dose should be based on the INR and NOT on the Protime. us Parag Eid MD HEMATOLOGY & PF4 ORDERABLES F inal Result Performing Organization Address [facility] Co de Phone Number [facility] [address] [place] [address] * PTT (02/24/2020 5:58 EDT) PTT 37 26 - 37 secs 02/24/2020 6:53 EDT [facility] Blood VENOUS BLOOD / Unknown Venipuncture / Unknown 02/24/2020 5:58 EDT 02/24/2020 6:21 EDT us Parag Eid MD HEMATOLOGY & PF4 ORDERABLES F inal Result Performing Organization Address [facility] Co de Phone Number [facility] [address] [place] [address] * BUN (02/24/2020 5:58 EDT) Pathologist [facility] BUN 17 10 - 26 mg/dL 02/24/2020 6:54 EDT [facility] Blood VENOUS BLOOD / Unknown Venipuncture / Unknown 02/24/2020 5:58 EDT 02/24/2020 6:21 EDT us Parag Eid MD CHEMISTRY & BLOOD GAS ORDERAB LES Final Result Performing Organization Address City/[facility] Co de Phone Number [facility] [address] [place] [address] * (ABNORMAL) CREATININE (02/24/2020 5:58 EDT) Creatinine 0.42(L) 0.52 - 1.04 mg/dL 02/24/2020 6:54 EDT [facility] eGFR 118 >60 mL/min/1.7 3m2 02/24/2020 6:54 EDT [facility] Comment:eGFR calculated usin g CKD-EPI equation for non- Americans. Multiply eGFR by 1.16 for patients. Blood VENOUS BLOOD / Unknown Venipuncture / Unknown 02/24/2020 5:58 EDT 02/24/2020 6:21 EDT Joyce Lee MD CHEMISTRY & BLOOD GAS ORDERABLES Final Result [facility] [address] [place] [address] * (ABNORMAL) COMPLETE BLOOD COUNT (02/24/2020 5:58 EDT) WBC 8.14 4.00 - 12.40 K/cmm 02/24/2020 6:37 [facility] RBC 3.26(L) 3.86 - 5.04 M/cmm 02/24/2020 6:37 [facility] Hemoglobin 10.8(L) 11.6 - 15.2 gm/dL 02/24/2020 6:37 [facility] HCT 31.7(L) 34.9 - 44.4 % 02/24/2020 6:37 [facility] MCV 97 81 - 98 fl 02/24/2020 6:37 [facility] MCH 33.1 26.7 - 33.3 pg 02/24/2020 6:37 [facility] MCHC 34.1 32.1 - 35.9 gm/dL 02/24/2020 6:37 [facility] RDW-CV 13.4 <14.7 % 02/24/2020 6:37 [facility] RDW-SD 48.2 <50.4 fl 02/24/2020 6:37 [facility] PLT 326 141 - 377 K/cmm 02/24/2020 6:37 [facility] MPV 10.5 9.5 - 12.7 fl 02/24/2020 6:37 [facility] Blood VENOUS BLOOD / Unknown Venipuncture / Unknown 02/24/2020 5:58 EDT 02/24/2020 6:20 EDT us Joyce Lee MD HEMATOLOGY & PF4 ORDERABLES Shannon l Result [facility] [address] [place] [address] * (ABNORMAL) ELECTROLYTES (02/23/2020 21:35 EDT) Sodium 136 136 - 145 mEq/L 02/23/2020 21:55 EDT [facility] Potassium 3.9 3.5 - 5.0 mEq/L 02/23/2020 21:55 EDT [facility] Chloride 109 96 - 110 mEq/L 02/23/2020 21:55 EDT [facility] CO2 Total 21(L) 22 - 32 mEq/L 02/23/2020 21:55 EDT [facility] Blood VENOUS BLOOD / Unknown Venipuncture / Unknown 02/23/2020 21:35 EDT 02/23/2020 21:38 EDT us Parag Eid MD CHEMISTRY & BLOOD GAS ORDERAB LES Final Result Performing Organization Address City/[facility]/ZIP Co de Phone Number [facility] [address] [place] [address] * POCT GLUCOSE, INTERFACED (02/23/2020 21:23 EDT) Glucose, POC 96 70 - 100 mg/dL 02/23/2020 22:12 EDT [facility] engine boss ID [id number] 02/23/2020 22:12 EDT [facility] HN LAB POC COMMENT (GLUCOSE) Test Performed by Nursing Services 02/23/2020 22:12 EDT [facility] Blood CAPILLARY BLOOD / Unknown 02/23/2020 21:23 EDT 02/23/2020 22:12 EDT us Kevin Rinaldi MD POINT OF CARE TEST ORDERABLES F inal Result Performing Organization Address City/[facility]/ZIP Co de Phone Number [facility] [address] [place] [address] * POCT GLUCOSE, INTERFACED (02/23/2020 17:24 EDT) Glucose, POC 99 70 - 100 mg/dL 02/23/2020 17:53 EDT [facility] engine boss ID [id number] 02/23/2020 17:53 EDT [facility] HN LAB POC COMMENT (GLUCOSE) Test Performed by Nursing Services 02/23/2020 17:53 EDT [facility] Blood CAPILLARY BLOOD / Unknown 02/23/2020 17:24 EDT 02/23/2020 17:53 EDT us Kevin Rinaldi MD POINT OF CARE TEST ORDERABLES F inal Result Performing Organization Address City/[facility]/ZIP Co de Phone Number [facility] [address] [place] [address] * (ABNORMAL) ELECTROLYTES (02/23/2020 14:33 EDT) Sodium 137 136 - 145 mEq/L 02/23/2020 15:23 EDT [facility] Potassium 3.8 3.5 - 5.0 mEq/L 02/23/2020 15:23 EDT [facility] Chloride 108 96 - 110 mEq/L 02/23/2020 15:23 EDT [facility] CO2 Total 21(L) 22 - 32 mEq/L 02/23/2020 15:23 EDT [facility] Blood VENOUS BLOOD / Unknown Venipuncture / Unknown 02/23/2020 14:33 EDT 02/23/2020 15:03 EDT us Parag Eid MD CHEMISTRY & BLOOD GAS ORDERAB LES Final Result [facility] [address] [place] [address] * (ABNORMAL) POCT GLUCOSE, INTERFACED (02/23/2020 12:12 EDT) Glucose, POC 101(H) 70 - 100 mg/dL 02/23/2020 12:19 EDT [facility]ATORY engine boss ID [id number] 02/23/2020 12:19 EDT [facility] HN LAB POC COMMENT (GLUCOSE) Test Performed by Nursing Services 02/23/2020 12:19 EDT [facility] Blood CAPILLARY BLOOD / Unknown 02/23/2020 12:12 EDT 02/23/2020 12:19 EDT Kevin Rinaldi MD POINT OF CARE TEST ORDERABLES F inal Result Performing Organization Address City/[facility]/ZIP Co de Phone Number [facility] [address] [place] [address] * POCT GLUCOSE, INTERFACED (02/23/2020 7:17 EDT) Glucose, POC 89 70 - 100 mg/dL 02/23/2020 7:19 EDT [facility]ATORY engine boss ID [id number] 02/23/2020 7:19 EDT [facility] HN LAB POC COMMENT (GLUCOSE) Test Performed by Nursing Services 02/23/2020 7:19 EDT [facility] Blood CAPILLARY BLOOD / Unknown 02/23/2020 7:17 EDT 02/23/2020 7:19 EDT us Kevin Rinaldi MD POINT OF CARE TEST ORDERABLES F inal Result Performing Organization Address [facility] Co de Phone Number [facility] [address] [place] [address] * (ABNORMAL) ELECTROLYTES (02/23/2020 5:42 EDT) Sodium 136 136 - 145 mEq/L 02/23/2020 6:36 EDT [facility] Potassium 3.4(L) 3.5 - 5.0 mEq/L 02/23/2020 6:36 EDT [facility] Chloride 110 96 - 110 mEq/L 02/23/2020 6:36 EDT [facility] CO2 Total 19(L) 22 - 32 mEq/L 02/23/2020 6:36 EDT [facility] Blood VENOUS BLOOD / Unknown Venipuncture / Unknown 02/23/2020 5:42 EDT 02/23/2020 6:08 EDT us Parag Eid MD CHEMISTRY & BLOOD GAS ORDERAB LES Final Result Performing Organization Address City/[facility]/ZIP Co de Phone Number [facility] [address] [place] [address] * PHOSPHORUS (02/23/2020 5:42 EDT) Phosphorus 3.6 2.5 - 4.5 mg/dL 02/23/2020 6:36 EDT [facility] Blood VENOUS BLOOD / Unknown Venipuncture / Unknown 02/23/2020 5:42 EDT 02/23/2020 6:08 EDT us Parag Eid MD CHEMISTRY & BLOOD GAS ORDERAB LES Final Result Performing Organization Address [facility] Co de Phone Number [facility] [address] [place] [address] * MAGNESIUM (02/23/2020 5:42 EDT) Magnesium 1.9 1.7 - 2.8 mg/dL 02/23/2020 6:36 EDT [facility] Blood VENOUS BLOOD / Unknown Venipuncture / Unknown 02/23/2020 5:42 EDT 02/23/2020 6:08 EDT Parag Eid MD CHEMISTRY & BLOOD GAS ORDERAB LES Final Result Performing Organization Address City/[facility] Co de Phone Number [facility] [address] [place] [address] * (ABNORMAL) PROTIME (02/23/2020 5:42 EDT) I.N.R. 1.3(H) 0.9 - 1.1 Ratio 02/23/2020 7:07 EDT [facility] Pro Time 14.9(H) 10.3 - 13.4 secs 02/23/2020 7:07 EDT [facility] Blood VENOUS BLOOD / Unknown Venipuncture / Unknown 02/23/2020 5:42 EDT 02/23/2020 6:06 EDT Narrative [facility] - 02/23/2020 7:07 EDT Moderate Intensity Coumadin INR = 2.0-3.0 Adjustments in anticoagulant therapy dose should be based on the INR and NOT on the Protime. Parag Eid MD HEMATOLOGY & PF4 ORDERABLES F inal Result [facility] [address] [place] [address] * PTT (02/23/2020 5:42 EDT) PTT 35 26 - 37 secs 02/23/2020 7:07 EDT [facility] Blood VENOUS BLOOD / Unknown Venipuncture / Unknown 02/23/2020 5:42 EDT 02/23/2020 6:06 EDT Parag Eid MD HEMATOLOGY & PF4 ORDERABLES F inal Result Performing Organization Address City/[facility]/ZIP Co de Phone Number [facility] [address] [place] [id number] * BUN (02/23/2020 5:42 EDT) BUN 18 10 - 26 mg/dL 02/23/2020 6:36 EDT [facility] Blood VENOUS BLOOD / Unknown Venipuncture / Unknown 02/23/2020 5:42 EDT 02/23/2020 6:08 EDT Parag Eid MD CHEMISTRY & BLOOD GAS ORDERAB LES Final Result Performing Organization Address [facility] [facility] Co de Phone Number [facility] [address] [place] [address] * (ABNORMAL) CREATININE (02/23/2020 5:42 EDT) Creatinine 0.47(L) 0.52 - 1.04 mg/dL 02/23/2020 6:36 [facility] eGFR 114 >60 mL/min/1.7 3m2 02/23/2020 6:36 [facility] Comment:eGFR calculated mickey redd CKD-EPI equation for non- Americans. Multiply eGFR by 1.16 for patients. Blood VENOUS BLOOD / Unknown Venipuncture / Unknown 02/23/2020 5:42 EDT 02/23/2020 6:08 EDT us Joyce Lee MD CHEMISTRY & BLOOD GAS ORDERABLES Final Result [facility] [address] [place] [address] * (ABNORMAL) COMPLETE BLOOD COUNT (02/23/2020 5:42 EDT) WBC 8.07 4.00 - 12.40 K/cmm 02/23/2020 6:22 [facility] RBC 3.34(L) 3.86 - 5.04 M/cmm 02/23/2020 6:22 [facility] Hemoglobin 10.9(L) 11.6 - 15.2 gm/dL 02/23/2020 6:22 [facility] HCT 32.5(L) 34.9 - 44.4 % 02/23/2020 6:22 [facility] MCV 97 81 - 98 fl 02/23/2020 6:22 [facility] MCH 32.6 26.7 - 33.3 pg 02/23/2020 6:22 [facility] MCHC 33.5 32.1 - 35.9 gm/dL 02/23/2020 6:22 [facility] RDW-CV 13.8 <14.7 % 02/23/2020 6:22 [facility] RDW-SD 49.6 <50.4 fl 02/23/2020 6:22 [facility] PLT 301 141 - 377 K/cmm 02/23/2020 6:22 [facility] MPV 10.5 9.5 - 12.7 fl 02/23/2020 6:22 EDT [facility] Blood VENOUS BLOOD / Unknown Venipuncture / Unknown 02/23/2020 5:42 EDT 02/23/2020 6:07 EDT us Joyce Lee MD HEMATOLOGY & PF4 ORDERABLES Shannon l Result Performing Organization Address [facility] Co de Phone Number [facility] [address] [place] [address] * (ABNORMAL) ELECTROLYTES (02/22/2020 21:27 EDT) Sodium 138 136 - 145 mEq/L 02/22/2020 21:55 EDT [facility] Potassium 3.7 3.5 - 5.0 mEq/L 02/22/2020 21:55 EDT [facility] Comment:Slight hemolysis rodirgo ntified, interpret with caution as hemolysis will elevate potassium result. Chloride 113(H) 96 - 110 mEq/L 02/22/2020 21:55 EDT [facility] CO2 Total 18(L) 22 - 32 mEq/L 02/22/2020 21:55 EDT [facility] Blood VENOUS BLOOD / Unknown Venipuncture / Unknown 02/22/2020 21:27 EDT 02/22/2020 21:30 EDT us Parag Eid MD CHEMISTRY & BLOOD GAS ORDERAB LES Final Result Performing Organization Address [facility] de Phone Number [facility] [address] [place] [id number] * CT HEAD WO CONTRAST (02/22/2020 21:02 [...] junction of the left transverseand sigmoid sinuses. us Ashleigh Patel MD IMG CT ORDERABLES Final Re sult * POCT GLUCOSE, INTERFACED (02/22/2020 20:33 EDT) Glucose, POC 91 70 - 100 mg/dL 02/22/2020 20:34 EDT [facility] engine boss ID [id number] 02/22/2020 20:34 EDT [facility] HN LAB POC COMMENT (GLUCOSE) Test Performed by Nursing Services 02/22/2020 20:34 EDT [facility] Blood CAPILLARY BLOOD / Unknown 02/22/2020 20:33 EDT 02/22/2020 20:34 EDT us Kevin Rinaldi MD POINT OF CARE TEST ORDERABLES F inal Result Performing Organization Address [facility]/ZIP Co de Phone Number [facility] [address] [place] [address] * (ABNORMAL) POCT GLUCOSE, INTERFACED (02/22/2020 17:54 EDT) Glucose, POC 105(H) 70 - 100 mg/dL 02/22/2020 17:55 EDT [facility] engine boss ID [id number] 02/22/2020 17:55 EDT [facility] HN LAB POC COMMENT (GLUCOSE) Test Performed by Nursing Services 02/22/2020 17:55 EDT [facility] Blood CAPILLARY BLOOD / Unknown 02/22/2020 17:54 EDT 02/22/2020 17:55 EDT us Kevin Rinaldi MD POINT OF CARE TEST ORDERABLES F inal Result Performing Organization Address [facility]/ZIP Co de Phone Number [facility] [address] [place] [address] * (ABNORMAL) ELECTROLYTES (02/22/2020 15:00 EDT) Sodium 137 136 - 145 mEq/L 02/22/2020 15:23 EDT [facility] Potassium 3.7 3.5 - 5.0 mEq/L 02/22/2020 15:23 EDT [facility] Chloride 112(H) 96 - 110 mEq/L 02/22/2020 15:23 EDT [facility] CO2 Total 20(L) 22 - 32 mEq/L 02/22/2020 15:23 EDT [facility] Blood VENOUS BLOOD / Unknown Venipuncture / Unknown 02/22/2020 15:00 EDT 02/22/2020 15:03 EDT us Parag Eid MD CHEMISTRY & BLOOD GAS ORDERAB LES Final Result Performing Organization Address City/[facility]/ZIP Co de Phone Number [facility] [address] [place] [address] * POCT GLUCOSE, INTERFACED (02/22/2020 12:19 EDT) Glucose, POC 99 70 - 100 mg/dL 02/22/2020 12:20 EDT [facility] engine boss ID [id number] 02/22/2020 12:20 EDT [facility] HN LAB POC COMMENT (GLUCOSE) Test Performed by Nursing Services 02/22/2020 12:20 EDT [facility] Blood CAPILLARY BLOOD / Unknown 02/22/2020 12:19 EDT 02/22/2020 12:20 EDT us Claus Piña MD POINT OF CARE TEST ORDERABLES Fi nal Result Performing Organization Address [facility] Co de Phone Number [facility] [address] [place] [address] * (ABNORMAL) POCT GLUCOSE, INTERFACED (02/22/2020 8:50 EDT) Glucose, POC 112(H) 70 - 100 mg/dL 02/22/2020 8:54 EDT [facility] engine boss ID [id number] 02/22/2020 8:54 EDT [facility] HN LAB POC COMMENT (GLUCOSE) Test Performed by Nursing Services 02/22/2020 8:54 EDT [facility] Blood CAPILLARY BLOOD / Unknown 02/22/2020 8:50 EDT 02/22/2020 8:54 EDT Claus Piña MD POINT OF CARE TEST ORDERABLES Fi nal Result Performing Organization Address [facility]/ZIP Co de Phone Number [facility] [address] [place] [address] * POCT GLUCOSE, INTERFACED (02/22/2020 5:23 EDT) Glucose, POC 94 70 - 100 mg/dL 02/22/2020 5:27 EDT [facility] engine boss ID [id number] 02/22/2020 5:27 EDT [facility] HN LAB POC COMMENT (GLUCOSE) Test Performed by Nursing Services 02/22/2020 5:27 EDT [facility] Blood CAPILLARY BLOOD / Unknown 02/22/2020 5:23 EDT 02/22/2020 5:27 EDT Joyce Lee MD POINT OF CARE TEST ORDERABLES Fi nal Result Performing Organization Address [facility] Co de Phone Number [facility] [address] [place] [address] * (ABNORMAL) ELECTROLYTES (02/22/2020 2:29 EDT) Sodium 137 136 - 145 mEq/L 02/22/2020 3:06 EDT [facility] Potassium 3.9 3.5 - 5.0 mEq/L 02/22/2020 3:06 EDT [facility] Chloride 111(H) 96 - 110 mEq/L 02/22/2020 3:06 EDT [facility] CO2 Total 19(L) 22 - 32 mEq/L 02/22/2020 3:06 EDT [facility] Blood VENOUS BLOOD / Unknown Venipuncture / Unknown 02/22/2020 2:29 EDT 02/22/2020 2:40 EDT us Parag Eid MD CHEMISTRY & BLOOD GAS ORDERAB LES Final Result Performing Organization Address [facility]/ZIP Co de Phone Number [facility] [address] [place] [address] * PHOSPHORUS (02/22/2020 2:29 EDT) Phosphorus 4.1 2.5 - 4.5 mg/dL 02/22/2020 3:06 EDT [facility] Blood VENOUS BLOOD / Unknown Venipuncture / Unknown 02/22/2020 2:29 EDT 02/22/2020 2:40 EDT us Parag Eid MD CHEMISTRY & BLOOD GAS ORDERAB LES Final Result [facility] [address] [place] [address] * MAGNESIUM (02/22/2020 2:29 EDT) Magnesium 2.2 1.7 - 2.8 mg/dL 02/22/2020 3:06 EDT [facility] Blood VENOUS BLOOD / Unknown Venipuncture / Unknown 02/22/2020 2:29 EDT 02/22/2020 2:40 EDT Parag Eid MD CHEMISTRY & BLOOD GAS ORDERAB LES Final Result Performing Organization Address City/[facility]/ZIP Co de Phone Number [facility] [address] [place] [address] * (ABNORMAL) PROTIME (02/22/2020 2:29 EDT) Pathologist [facility] [place] I.N.R. 1.2(H) 0.9 - 1.1 Ratio 02/22/2020 3:12 EDT [facility] Pro Time 14.3(H) 10.3 - 13.4 secs 02/22/2020 3:12 EDT [facility] Blood VENOUS BLOOD / Unknown Venipuncture / Unknown 02/22/2020 2:29 EDT 02/22/2020 2:40 EDT Narrative [facility] - 02/22/2020 3:12 EDT Moderate Intensity Coumadin INR = 2.0-3.0 Adjustments in anticoagulant therapy dose should be based on the INR and NOT on the Protime. Parag Eid MD HEMATOLOGY & PF4 ORDERABLES F inal Result Performing Organization Address City/[facility]/ZIP Co de Phone Number [facility] [address] [place] [address] * PTT (02/22/2020 2:29 EDT) PTT 37 26 - 37 secs 02/22/2020 3:12 EDT [facility] Blood VENOUS BLOOD / Unknown Venipuncture / Unknown 02/22/2020 2:29 EDT 02/22/2020 2:40 EDT Parag Eid MD HEMATOLOGY & PF4 ORDERABLES F inal Result Performing Organization Address [facility] Co de Phone Number [facility] [address] [place] [address] * BUN (02/22/2020 2:29 EDT) Pathologist [facility] [place] BUN 21 10 - 26 mg/dL 02/22/2020 3:06 EDT [facility] Blood VENOUS BLOOD / Unknown Venipuncture / Unknown 02/22/2020 2:29 EDT 02/22/2020 2:40 EDT us Parag Eid MD CHEMISTRY & BLOOD GAS ORDERAB LES Final Result Performing Organization Address [facility] de Phone Number [facility] [address] [place] [address] * (ABNORMAL) CREATININE (02/22/2020 2:29 EDT) [facility] Creatinine 0.49(L) 0.52 - 1.04 mg/dL 02/22/2020 3:06 EDT [facility] eGFR 112 >60 mL/min/1.7 3m2 02/22/2020 3:06 EDT [facility] Comment:eGFR calculated mickey redd CKD-EPI equation for non- Americans. Multiply eGFR by 1.16 for patients. Blood VENOUS BLOOD / Unknown Venipuncture / Unknown 02/22/2020 2:29 EDT 02/22/2020 2:40 EDT Joyce Lee MD CHEMISTRY & BLOOD GAS ORDERABLES Final Result Performing Organization Address [facility] Co de Phone Number [facility] [address] [place] [address] * (ABNORMAL) COMPLETE BLOOD COUNT (02/22/2020 2:29 EDT) [facility] WBC 9.61 4.00 - 12.40 K/cmm 02/22/2020 2:49 [facility] RBC 3.28(L) 3.86 - 5.04 M/cmm 02/22/2020 2:49 [facility] Hemoglobin 10.7(L) 11.6 - 15.2 gm/dL 02/22/2020 2:49 [facility] HCT 32.3(L) 34.9 - 44.4 % 02/22/2020 2[facility] MCV 99(H) 81 - 98 fl 02/22/2020 2:49 [facility] MCH 32.6 26.7 - 33.3 pg 02/22/2020 2:49 [facility] MCHC 33.1 32.1 - 35.9 gm/dL 02/22/2020 2:49 [facility] RDW-CV 14.0 <14.7 % 02/22/2020 2:49 [facility] RDW-SD 50.3 <50.4 fl 02/22/2020 2:49 [facility] PLT 256 141 - 377 K/cmm 02/22/2020 2:49 [facility] MPV 10.3 9.5 - 12.7 fl 02/22/2020 2:49 [facility] Blood VENOUS BLOOD / Unknown Venipuncture / Unknown 02/22/2020 2:29 EDT 02/22/2020 2:40 EDT us Joyce Lee MD HEMATOLOGY & PF4 ORDERABLES Shannon l Result [facility] [address] [place] [address] * POCT GLUCOSE, INTERFACED (02/22/2020 0:26 EDT) Pathologist [facility] [place] Glucose, POC 94 70 - 100 mg/dL 02/22/2020 0:30 EDT [facility] engine boss ID [id number] 02/22/2020 0:30 EDT [facility] HN LAB POC COMMENT (GLUCOSE) Test Performed by Nursing Services 02/22/2020 0:30 EDT [facility] Blood CAPILLARY BLOOD / Unknown 02/22/2020 0:26 EDT 02/22/2020 0:30 EDT us Joyce Lee MD POINT OF CARE TEST ORDERABLES Fi nal Result Performing Organization Address City/[facility]/ZIP Co de Phone Number [facility] [address] [place] [address] * (ABNORMAL) ELECTROLYTES (02/21/2020 21:51 EDT) Sodium 146(H) 136 - 145 mEq/L 02/22/2020 9:48 EDT [facility] Potassium 3.3(L) 3.5 - 5.0 mEq/L 02/22/2020 9:48 EDT [facility] Chloride 120(H) 96 - 110 mEq/L 02/22/2020 9:48 EDT [facility] CO2 Total 20(L) 22 - 32 mEq/L 02/22/2020 9:48 EDT [facility] Blood VENOUS BLOOD / Unknown Venipuncture / Unknown 02/21/2020 21:51 EDT 02/21/2020 21:59 EDT us Parag Eid MD CHEMISTRY & BLOOD GAS ORDERAB LES Edited Result - Final Performing Organization Address City/[facility]/ZIP Co de Phone Number [facility] [address] [place] [address] * (ABNORMAL) POCT GLUCOSE, INTERFACED (02/21/2020 19:24 EDT) Glucose, POC 107(H) 70 - 100 mg/dL 02/21/2020 19:28 EDT [facility] engine boss ID [id number] 02/21/2020 19:28 EDT [facility] HN LAB POC COMMENT (GLUCOSE) Test Performed by Nursing Services 02/21/2020 19:28 EDT [facility] Blood CAPILLARY BLOOD / Unknown 02/21/2020 19:24 EDT 02/21/2020 19:28 EDT us Joyce Lee MD POINT OF CARE TEST ORDERABLES Fi nal Result Performing Organization Address City/[facility]/ZIP Co de Phone Number [facility] [address] [place] [address] * (ABNORMAL) ELECTROLYTES (02/21/2020 12:52 EDT) Sodium 137 136 - 145 mEq/L 02/21/2020 13:22 EDT [facility] Potassium 4.0 3.5 - 5.0 mEq/L 02/21/2020 13:22 EDT [facility] Chloride 109 96 - 110 mEq/L 02/21/2020 13:22 EDT [facility] CO2 Total 20(L) 22 - 32 mEq/L 02/21/2020 13:22 EDT [facility] Blood VENOUS BLOOD / Unknown Venipuncture / Unknown 02/21/2020 12:52 EDT 02/21/2020 13:01 EDT us Parag Eid MD CHEMISTRY & BLOOD GAS ORDERAB LES Final Result Performing Organization Address [facility] Co de Phone Number [facility] [address] [place] [address] * POCT GLUCOSE, INTERFACED (02/21/2020 12:24 EDT) Glucose, POC 100 70 - 100 mg/dL 02/21/2020 12:25 EDT [facility] engine boss ID [id number] 02/21/2020 12:25 EDT [facility] HN LAB POC COMMENT (GLUCOSE) Test Performed by Nursing Services 02/21/2020 12:25 EDT [facility] Blood CAPILLARY BLOOD / Unknown 02/21/2020 12:24 EDT 02/21/2020 12:25 EDT us Joyce Lee MD POINT OF CARE TEST ORDERABLES Fi nal Result [facility] [address] [place] [address] * POCT GLUCOSE, INTERFACED (02/21/2020 6:17 EDT) Glucose, POC 99 70 - 100 mg/dL 02/21/2020 6:22 EDT [facility] engine boss ID [id number] 02/21/2020 6:22 EDT [facility] HN LAB POC COMMENT (GLUCOSE) Test Performed by Nursing Services 02/21/2020 6:22 EDT [facility] Blood CAPILLARY BLOOD / Unknown 02/21/2020 6:17 EDT 02/21/2020 6:22 EDT us Joyce Lee MD POINT OF CARE TEST ORDERABLES Fi nal Result [facility] [address] [place] [address] * ELECTROLYTES (02/21/2020 2:32 EDT) Sodium 138 136 - 145 mEq/L 02/21/2020 3:20 EDT [facility] Potassium 3.9 3.5 - 5.0 mEq/L 02/21/2020 3:20 EDT [facility] Chloride 109 96 - 110 mEq/L 02/21/2020 3:20 EDT [facility] CO2 Total 22 22 - 32 mEq/L 02/21/2020 3:20 EDT [facility] Blood VENOUS BLOOD / Unknown Venipuncture / Unknown 02/21/2020 2:32 EDT 02/21/2020 2:56 EDT us Parag Eid MD CHEMISTRY & BLOOD GAS ORDERAB LES Final Result [facility] [address] [place] [address] * PHOSPHORUS (02/21/2020 2:32 EDT) Phosphorus 4.4 2.5 - 4.5 mg/dL 02/21/2020 3:20 EDT [facility] Blood VENOUS BLOOD / Unknown Venipuncture / Unknown 02/21/2020 2:32 EDT 02/21/2020 2:56 EDT us Parag Eid MD CHEMISTRY & BLOOD GAS ORDERAB LES Final Result Performing Organization Address City/[facility]/ZIP Co de Phone Number [facility] [address] [place] [address] * MAGNESIUM (02/21/2020 2:32 EDT) Magnesium 2.2 1.7 - 2.8 mg/dL 02/21/2020 3:20 EDT [facility] Blood VENOUS BLOOD / Unknown Venipuncture / Unknown 02/21/2020 2:32 EDT 02/21/2020 2:56 EDT us Parag Eid MD CHEMISTRY & BLOOD GAS ORDERAB LES Final Result Performing Organization Address [facility] Co de Phone Number [facility] [address] [place] [address] * PROTIME (02/21/2020 2:32 EDT) I.N.R. 1.1 0.9 - 1.1 Ratio 02/21/2020 3:22 EDT [facility] Pro Time 12.7 10.3 - 13.4 secs 02/21/2020 3:22 EDT [facility] Blood VENOUS BLOOD / Unknown Venipuncture / Unknown 02/21/2020 2:32 EDT 02/21/2020 2:54 EDT Narrative [facility] - 02/21/2020 3:22 EDT Moderate Intensity Coumadin INR = 2.0-3.0 Adjustments in anticoagulant therapy dose should be based on the INR and NOT on the Protime. us Parag Eid MD HEMATOLOGY & PF4 ORDERABLES F inal Result Performing Organization Address City/[facility]/ZIP Co de Phone Number [facility] [address] [place] [address] * PTT (02/21/2020 2:32 EDT) PTT 32 26 - 37 secs 02/21/2020 3:22 EDT [facility] Blood VENOUS BLOOD / Unknown Venipuncture / Unknown 02/21/2020 2:32 EDT 02/21/2020 2:54 EDT Parag Eid MD HEMATOLOGY & PF4 ORDERABLES F inal Result [facility] [address] [place] [address] * BUN (02/21/2020 2:32 EDT) Pathologist [facility] [place] BUN 23 10 - 26 mg/dL 02/21/2020 3:20 EDT [facility] Blood VENOUS BLOOD / Unknown Venipuncture / Unknown 02/21/2020 2:32 EDT 02/21/2020 2:56 EDT Parag Eid MD CHEMISTRY & BLOOD GAS ORDERAB LES Final Result Performing Organization Address [facility] Co de Phone Number [facility] [address] [place] [address] * (ABNORMAL) CREATININE (02/21/2020 2:32 EDT) Creatinine 0.45(L) 0.52 - 1.04 mg/dL 02/21/2020 3:20 EDT [facility] eGFR 116 >60 mL/min/1.7 3m2 02/21/2020 3:20 EDT [facility] Comment:eGFR calculated mickey redd CKD-EPI equation for non- Americans. Multiply eGFR by 1.16 for patients. Blood VENOUS BLOOD / Unknown Venipuncture / Unknown 02/21/2020 2:32 EDT 02/21/2020 2:56 EDT Joyce Lee MD CHEMISTRY & BLOOD GAS ORDERABLES Final Result [facility] [address] [place] [address] * (ABNORMAL) COMPLETE BLOOD COUNT (02/21/2020 2:32 EDT) WBC 9.46 4.00 - 12.40 K/cmm 02/21/2020 3:03 EDT [facility] RBC 3.28(L) 3.86 - 5.04 M/cmm 02/21/2020 3:03 EDT [facility] Hemoglobin 10.9(L) 11.6 - 15.2 gm/dL 02/21/2020 3:03 EDT [facility] HCT 33.2(L) 34.9 - 44.4 % 02/21/2020 3:03 EDT [facility] MCV 101(H) 81 - 98 fl 02/21/2020 3:03 EDT [facility] MCH 33.2 26.7 - 33.3 pg 02/21/2020 3:03 EDT [facility] MCHC 32.8 32.1 - 35.9 gm/dL 02/21/2020 3:03 T [facility] RDW-CV 14.3 <14.7 % 02/21/2020 3:03 T [facility] RDW-SD 53.7(H) <50.4 fl 02/21/2020 3:03 [facility] PLT 235 141 - 377 K/cmm 02/21/2020 3:03 T [facility] MPV 11.0 9.5 - 12.7 fl 02/21/2020 3:03 T [facility] Blood VENOUS BLOOD / Unknown Venipuncture / Unknown 02/21/2020 2:32 EDT 02/21/2020 2:54 EDT us Joyce Lee MD HEMATOLOGY & PF4 ORDERABLES Shannon l Result [facility] [address] [place] [address] * (ABNORMAL) POCT GLUCOSE, INTERFACED (02/21/2020 0:32 EDT) Glucose, POC 103(H) 70 - 100 mg/dL 02/21/2020 6:12 EDT [facility] engine boss ID [id number] 02/21/2020 6:12 EDT [facility] HN LAB POC COMMENT (GLUCOSE) Test Performed by Nursing Services 02/21/2020 6:12 EDT [facility] Blood CAPILLARY BLOOD / Unknown 02/21/2020 0:32 EDT 02/21/2020 6:12 EDT us Joyce Lee MD POINT OF CARE TEST ORDERABLES Fi nal Result Performing Organization Address City/[facility]/ZIP Co de Phone Number [facility] [address] [place] [address] * ELECTROLYTES (02/20/2020 21:18 EDT) [facility] Signature Sodium 138 136 - 145 mEq/L 02/20/2020 23:05 EDT [facility] Potassium 3.7 3.5 - 5.0 mEq/L 02/20/2020 23:05 EDT [facility] Chloride 109 96 - 110 mEq/L 02/20/2020 23:05 EDT [facility] CO2 Total 23 22 - 32 mEq/L 02/20/2020 23:05 EDT [facility] Blood VENOUS BLOOD / Unknown Venipuncture / Unknown 02/20/2020 21:18 EDT 02/20/2020 21:38 EDT us Parag Eid MD CHEMISTRY & BLOOD GAS ORDERAB LES Final Result [facility] [address] [place] [address] * (ABNORMAL) POCT GLUCOSE, INTERFACED (02/20/2020 19:32 EDT) Glucose, POC 109(H) 70 - 100 mg/dL 02/20/2020 23:01 EDT [facility] engine boss ID [id number] 02/20/2020 23:01 EDT [facility] HN LAB POC COMMENT (GLUCOSE) Test Performed by Nursing Services 02/20/2020 23:01 EDT [facility] Blood CAPILLARY BLOOD / Unknown 02/20/2020 19:32 EDT 02/20/2020 23:01 EDT us Joyce Lee MD POINT OF CARE TEST ORDERABLES Fi nal Result Performing Organization Address [facility]/ZIP Co de Phone Number [facility] [address] [place] [address] * ELECTROLYTES (02/20/2020 14:26 EDT) Sodium 140 136 - 145 mEq/L 02/20/2020 14:58 EDT [facility] Potassium 3.7 3.5 - 5.0 mEq/L 02/20/2020 14:58 EDT [facility] Chloride 110 96 - 110 mEq/L 02/20/2020 14:58 EDT [facility] CO2 Total 24 22 - 32 mEq/L 02/20/2020 14:58 EDT [facility] Blood VENOUS BLOOD / Unknown Venipuncture / Unknown 02/20/2020 14:26 EDT 02/20/2020 14:34 EDT us Parag Eid MD CHEMISTRY & BLOOD GAS ORDERAB LES Final Result Performing Organization Address [facility] Co de Phone Number [facility] [address] [place] [address] * (ABNORMAL) POCT GLUCOSE, INTERFACED (02/20/2020 11:28 EDT) Glucose, POC 124(H) 70 - 100 mg/dL 02/20/2020 11:28 EDT [facility] [place] ID [id number] 02/20/2020 11:28 EDT [facility] HN LAB POC COMMENT (GLUCOSE) Test Performed by Nursing Services 02/20/2020 11:28 EDT [facility] Blood CAPILLARY BLOOD / Unknown 02/20/2020 11:28 EDT 02/20/2020 11:28 EDT us Joyce Lee MD POINT OF CARE TEST ORDERABLES Fi nal Result [facility] [address] [place] [address] * (ABNORMAL) ELECTROLYTES (02/20/2020 6:48 EDT) Sodium 142 136 - 145 mEq/L 02/20/2020 8:34 EDT [facility] Potassium 3.5 3.5 - 5.0 mEq/L 02/20/2020 8:34 EDT [facility] Chloride 112(H) 96 - 110 mEq/L 02/20/2020 8:34 EDT [facility] CO2 Total 26 22 - 32 mEq/L 02/20/2020 8:34 EDT [facility] Blood VENOUS BLOOD / Unknown Venipuncture / Unknown 02/20/2020 6:48 EDT 02/20/2020 8:08 EDT Parag Eid MD CHEMISTRY & BLOOD GAS ORDERAB LES Final Result [facility] [address] [place] [address] * PHOSPHORUS (02/20/2020 6:48 EDT) Phosphorus 4.1 2.5 - 4.5 mg/dL 02/20/2020 8:34 EDT [facility] Blood VENOUS BLOOD / Unknown Venipuncture / Unknown 02/20/2020 6:48 EDT 02/20/2020 8:08 EDT Parag Eid MD CHEMISTRY & BLOOD GAS ORDERAB LES Final Result [facility] [address] [place] [address] * MAGNESIUM (02/20/2020 6:48 EDT) Magnesium 2.2 1.7 - 2.8 mg/dL 02/20/2020 8:34 EDT [facility] Blood VENOUS BLOOD / Unknown Venipuncture / Unknown 02/20/2020 6:48 EDT 02/20/2020 8:08 EDT us Parag Eid MD CHEMISTRY & BLOOD GAS ORDERAB LES Final Result [facility] [address] [place] [address] * PROTIME (02/20/2020 6:48 EDT) I.N.R. 1.1 0.9 - 1.1 Ratio 02/20/2020 7:52 EDT [facility] Pro Time 13.1 10.3 - 13.4 secs 02/20/2020 7:52 EDT [facility] Blood VENOUS BLOOD / Unknown Venipuncture / Unknown 02/20/2020 6:48 EDT 02/20/2020 7:20 EDT Narrative [facility] - 02/20/2020 7:52 EDT Moderate Intensity Coumadin INR = 2.0-3.0 Adjustments in anticoagulant therapy dose should be based on the INR and NOT on the Protime. Result Miah Eid MD HEMATOLOGY & PF4 ORDERABLES F inal Result Performing Organization Address City/[facility]/ZIP Co de Phone Number [facility] [address] [place] [phone] * PTT (02/20/2020 6:48 EDT) PTT 31 26 - 37 secs 02/20/2020 7:52 EDT [facility] Blood VENOUS BLOOD / Unknown Venipuncture / Unknown 02/20/2020 6:48 EDT 02/20/2020 7:20 EDT us Parag Eid MD HEMATOLOGY & PF4 ORDERABLES F inal Result Performing Organization Address City/[facility]/ZIP Co de Phone Number [facility] [address] [place] [address] * BUN (02/20/2020 6:48 EDT) BUN 23 10 - 26 mg/dL 02/20/2020 8:34 EDT [facility] Blood VENOUS BLOOD / Unknown Venipuncture / Unknown 02/20/2020 6:48 EDT 02/20/2020 8:08 EDT us Parag Eid MD CHEMISTRY & BLOOD GAS ORDERAB LES Final Result Performing Organization Address City/[facility] Co de Phone Number [facility] [address] [place] [address] * (ABNORMAL) CREATININE (02/20/2020 6:48 EDT) Creatinine 0.50(L) 0.52 - 1.04 mg/dL 02/20/2020 8:34 EDT [facility] eGFR 112 >60 mL/min/1.7 3m2 02/20/2020 8:34 EDT [facility] Comment:eGFR calculated mickey redd CKD-EPI equation for non- Americans. Multiply eGFR by 1.16 for patients. Blood VENOUS BLOOD / Unknown Venipuncture / Unknown 02/20/2020 6:48 EDT 02/20/2020 8:08 EDT us Joyce Lee MD CHEMISTRY & BLOOD GAS ORDERABLES Final Result Performing Organization Address City/[facility] Co de Phone Number [facility] [address] [place] [address] * (ABNORMAL) COMPLETE BLOOD COUNT (02/20/2020 6:48 EDT) WBC 9.74 4.00 - 12.40 K/cmm 02/20/2020 7:58 EDT [facility] RBC 3.22(L) 3.86 - 5.04 M/cmm 02/20/2020 7:58 EDT [facility] Hemoglobin 10.8(L) 11.6 - 15.2 gm/dL 02/20/2020 7:58 EDT [facility] HCT 33.0(L) 34.9 - 44.4 % 02/20/2020 7:58 EDT [facility] MCV 103(H) 81 - 98 fl 02/20/2020 7:58 EDT [facility] MCH 33.5(H) 26.7 - 33.3 pg 02/20/2020 7:58 EDT [facility] MCHC 32.7 32.1 - 35.9 gm/dL 02/20/2020 7:58 EDT [facility] RDW-CV 14.5 <14.7 % 02/20/2020 7:58 T [facility] RDW-SD 54.1(H) <50.4 fl 02/20/2020 7:58 T [facility] PLT 229 141 - 377 K/cmm 02/20/2020 7:58 T [facility] MPV 10.9 9.5 - 12.7 fl 02/20/2020 7:58 EDT [facility] Blood VENOUS BLOOD / Unknown Venipuncture / Unknown 02/20/2020 6:48 EDT 02/20/2020 7:20 EDT us Joyce Lee MD HEMATOLOGY & PF4 ORDERABLES Shannon l Result [facility] [address] [place] [id number] * (ABNORMAL) POCT GLUCOSE, INTERFACED (02/20/2020 6:19 EDT) Glucose, POC 106(H) 70 - 100 mg/dL 02/20/2020 6:23 EDT [facility] engine boss ID [id number] 02/20/2020 6:23 EDT [facility] HN LAB POC COMMENT (GLUCOSE) Test Performed by Nursing Services 02/20/2020 6:23 EDT [facility] Blood CAPILLARY BLOOD / Unknown 02/20/2020 6:19 EDT 02/20/2020 6:23 EDT us Joyce Lee MD POINT OF CARE TEST ORDERABLES Fi nal Result [facility] [address] [place] [address] * (ABNORMAL) POCT GLUCOSE, INTERFACED (02/20/2020 0:01 EDT) Glucose, POC 118(H) 70 - 100 mg/dL 02/20/2020 0:05 EDT [facility] engine boss ID [id number] 02/20/2020 0:05 EDT [facility] HN LAB POC COMMENT (GLUCOSE) Test Performed by Nursing Services 02/20/2020 0:05 EDT [facility] Blood CAPILLARY BLOOD / Unknown 02/20/2020 0:01 EDT 02/20/2020 0:05 EDT us Joyce Lee MD POINT OF CARE TEST ORDERABLES Fi nal Result Performing Organization Address [facility] de Phone Number [facility] [address] [place] [address] * (ABNORMAL) ELECTROLYTES (02/19/2020 21:25 EDT) Sodium 143 136 - 145 mEq/L 02/19/2020 21:59 EDT [facility] Potassium 3.8 3.5 - 5.0 mEq/L 02/19/2020 21:59 EDT [facility] Comment:Slight hemolysis rodrigo ntified, interpret with caution as hemolysis will elevate potassium result. Chloride 112(H) 96 - 110 mEq/L 02/19/2020 21:59 EDT [facility] CO2 Total 26 22 - 32 mEq/L 02/19/2020 21:59 EDT [facility] Blood VENOUS BLOOD / Unknown Venipuncture / Unknown 02/19/2020 21:25 EDT 02/19/2020 21:32 EDT us Parag Eid MD CHEMISTRY & BLOOD GAS ORDERAB LES Final Result Performing Organization Address [facility] Co de Phone Number [facility] [address] [place] [address] * (ABNORMAL) POCT GLUCOSE, INTERFACED (02/19/2020 17:26 EDT) Glucose, POC 169(H) 70 - 100 mg/dL 02/19/2020 17:30 EDT [facility] engine boss ID [id number] 02/19/2020 17:30 EDT [facility] HN LAB POC COMMENT (GLUCOSE) Test Performed by Nursing Services 02/19/2020 17:30 EDT [facility] Blood CAPILLARY BLOOD / Unknown 02/19/2020 17:26 EDT 02/19/2020 17:30 EDT us Joyce Lee MD POINT OF CARE TEST ORDERABLES Fi nal Result Performing Organization Address City/[facility]/ZIP Co de Phone Number [facility] [address] [place] [address] * (ABNORMAL) ELECTROLYTES (02/19/2020 14:12 EDT) Sodium 147(H) 136 - 145 mEq/L 02/19/2020 15:05 EDT [facility] Potassium 3.7 3.5 - 5.0 mEq/L 02/19/2020 15:05 [facility] Chloride 112(H) 96 - 110 mEq/L 02/19/2020 15:05 T [facility] CO2 Total 28 22 - 32 mEq/L 02/19/2020 15:05 EDT [facility] Blood VENOUS BLOOD / Unknown Venipuncture / Unknown 02/19/2020 14:12 EDT 02/19/2020 14:18 EDT us Parag Eid MD CHEMISTRY & BLOOD GAS ORDERAB LES Final Result [facility] [address] [place] [address] * (ABNORMAL) POCT GLUCOSE, INTERFACED (02/19/2020 11:13 EDT) Glucose, POC 127(H) 70 - 100 mg/dL 02/19/2020 11:13 EDT [facility] engine boss ID [id number] 02/19/2020 11:13 EDT [facility] HN LAB POC COMMENT (GLUCOSE) Test Performed by Nursing Services 02/19/2020 11:13 EDT [facility] Blood CAPILLARY BLOOD / Unknown 02/19/2020 11:13 EDT 02/19/2020 11:13 EDT Joyce Lee MD POINT OF CARE TEST ORDERABLES Fi nal Result Performing Organization Address City/[facility]/ZIP Co de Phone Number [facility] [address] [place] [address] * (ABNORMAL) POCT GLUCOSE, INTERFACED (02/19/2020 6:01 EDT) Glucose, POC 110(H) 70 - 100 mg/dL 02/19/2020 6:06 EDT [facility] engine boss ID [id number] 02/19/2020 6:06 EDT [facility] HN LAB POC COMMENT (GLUCOSE) Test Performed by Nursing Services 02/19/2020 6:06 EDT [facility] Blood CAPILLARY BLOOD / Unknown 02/19/2020 6:01 EDT 02/19/2020 6:06 EDT us Joyce Lee MD POINT OF CARE TEST ORDERABLES Fi nal Result Performing Organization Address [facility] Co de Phone Number [facility] [address] [place] [phone] * (ABNORMAL) ELECTROLYTES (02/19/2020 4:18 EDT) Sodium 144 136 - 145 mEq/L 02/19/2020 5:02 EDT [facility] Potassium 3.0(L) 3.5 - 5.0 mEq/L 02/19/2020 5:02 EDT [facility] Chloride 109 96 - 110 mEq/L 02/19/2020 5:02 EDT [facility] CO2 Total 29 22 - 32 mEq/L 02/19/2020 5:02 EDT [facility] Blood VENOUS BLOOD / Unknown Venipuncture / Unknown 02/19/2020 4:18 EDT 02/19/2020 4:37 EDT Parag Eid MD CHEMISTRY & BLOOD GAS ORDERAB LES Final Result Performing Organization Address City/[facility]/ZIP Co de Phone Number [facility] [address] [place] [address] * PHOSPHORUS (02/19/2020 4:18 EDT) Phosphorus 3.7 2.5 - 4.5 mg/dL 02/19/2020 5:02 EDT [facility] Blood VENOUS BLOOD / Unknown Venipuncture / Unknown 02/19/2020 4:18 EDT 02/19/2020 4:37 EDT Parag Eid MD CHEMISTRY & BLOOD GAS ORDERAB LES Final Result Performing Organization Address [facility] Co de Phone Number [facility] [address] [place] [address] * MAGNESIUM (02/19/2020 4:18 EDT) Magnesium 2.1 1.7 - 2.8 mg/dL 02/19/2020 5:02 EDT [facility] Blood VENOUS BLOOD / Unknown Venipuncture / Unknown 02/19/2020 4:18 EDT 02/19/2020 4:37 EDT Parag Eid MD CHEMISTRY & BLOOD GAS ORDERAB LES Final Result Performing Organization Address City/[facility]/ZIP Co de Phone Number [facility] [address] [place] [address] * (ABNORMAL) PROTIME (02/19/2020 4:18 EDT) I.N.R. 1.3(H) 0.9 - 1.1 Ratio 02/19/2020 4:44 EDT [facility] Pro Time 15.0(H) 10.3 - 13.4 secs 02/19/2020 4:44 EDT [facility] Blood VENOUS BLOOD / Unknown Venipuncture / Unknown 02/19/2020 4:18 EDT 02/19/2020 4:23 EDT Narrative [facility] - 02/19/2020 4:44 EDT Moderate Intensity Coumadin INR = 2.0-3.0 Adjustments in anticoagulant therapy dose should be based on the INR and NOT on the Protime. us Parag Eid MD HEMATOLOGY & PF4 ORDERABLES F inal Result Performing Organization Address City/[facility]/ZIP Co de Phone Number [facility] [address] [place] [address] * PTT (02/19/2020 4:18 EDT) PTT 32 26 - 37 secs 02/19/2020 4:44 EDT [facility] Blood VENOUS BLOOD / Unknown Venipuncture / Unknown 02/19/2020 4:18 EDT 02/19/2020 4:23 EDT us Parag Eid MD HEMATOLOGY & PF4 ORDERABLES F inal Result Performing Organization Address [facility]/ZIP Co de Phone Number [facility] [address] [place] [address] * BUN (02/19/2020 4:18 EDT) BUN 21 10 - 26 mg/dL 02/19/2020 5:02 EDT [facility] Blood VENOUS BLOOD / Unknown Venipuncture / Unknown 02/19/2020 4:18 EDT 02/19/2020 4:37 EDT us Parag Eid MD CHEMISTRY & BLOOD GAS ORDERAB LES Final Result Performing Organization Address [facility] Co de Phone Number [facility] [address] [place] [address] * (ABNORMAL) CREATININE (02/19/2020 4:18 EDT) Creatinine 0.48(L) 0.52 - 1.04 mg/dL 02/19/2020 5:02 EDT [facility] eGFR 113 >60 mL/min/1.7 3m2 02/19/2020 5:02 T [facility] Comment:eGFR calculated mickey redd CKD-EPI equation for non- Americans. Multiply eGFR by 1.16 for patients. Blood VENOUS BLOOD / Unknown Venipuncture / Unknown 02/19/2020 4:18 EDT 02/19/2020 4:37 EDT us Joyce Lee MD CHEMISTRY & BLOOD GAS ORDERABLES Final Result [facility] [address] [place] [address] * (ABNORMAL) COMPLETE BLOOD COUNT (02/19/2020 4:18 EDT) WBC 7.94 4.00 - 12.40 K/cmm 02/19/2020 4:34 [facility] RBC 3.30(L) 3.86 - 5.04 M/cmm 02/19/2020 4:34 [facility] Hemoglobin 11.0(L) 11.6 - 15.2 gm/dL 02/19/2020 4:34 [facility] HCT 32.7(L) 34.9 - 44.4 % 02/19/2020 4:34 [facility] MCV 99(H) 81 - 98 fl 02/19/2020 4:34 [facility] MCH 33.3 26.7 - 33.3 pg 02/19/2020 4:34 [facility] MCHC 33.6 32.1 - 35.9 gm/dL 02/19/2020 4:34 [facility] RDW-CV 14.0 <14.7 % 02/19/2020 4:34 [facility] RDW-SD 51.6(H) <50.4 fl 02/19/2020 4:34 [facility] PLT 150 141 - 377 K/cmm 02/19/2020 4:34 [facility] MPV 10.5 9.5 - 12.7 fl 02/19/2020 4:34 EDT [facility] Blood VENOUS BLOOD / Unknown Venipuncture / Unknown 02/19/2020 4:18 EDT 02/19/2020 4:24 EDT us Joyce Lee MD HEMATOLOGY & PF4 ORDERABLES Shannon l Result [facility] [address] [place] [address] * (ABNORMAL) POCT GLUCOSE, INTERFACED (02/19/2020 0:00 EDT) Pathologist [facility] [place] Glucose, POC 104(H) 70 - 100 mg/dL 02/19/2020 6:06 EDT [facility] engine boss ID [id number] 02/19/2020 6:06 EDT [facility] [facility] HN LAB POC COMMENT (GLUCOSE) Test Performed by Nursing Services 02/19/2020 6:06 EDT [facility] Blood CAPILLARY BLOOD / Unknown 02/19/2020 02/19/2020 6:06 EDT Joyce Lee MD POINT OF CARE TEST ORDERABLES Fi nal Result [facility] [address] [place] [address] * HN LAB DIFF PATH REVIEW - COAG (02/18/2020 20:34 EDT) [facility] Pathology Review Comment - Coagulation Ken Woodruff MD 02/22/2020 14:58 EDT [facility] Blood VENOUS BLOOD / Unknown Venipuncture / Unknown 02/18/2020 20:34 EDT 02/18/2020 20:38 EDT Frank Hardwick MD HEMATOLOGY & PF4 ORDERABLES Fin al Result [facility] [address] [place] [address] * (ABNORMAL) LA CONFIRM TEST (02/18/2020 20:34 EDT) Pathologist [facility] [place] Dilute Yung Viper Venom Time Confirm 34.8(H) 25.1 - 30.2 secs 02/22/2020 13:03 EDT [facility] LA Ratio 1.03 <=1.16 02/22/2020 13:03 EDT [facility] Blood VENOUS BLOOD / Unknown Venipuncture / Unknown 02/18/2020 20:34 EDT 02/18/2020 20:38 EDT Frank Hardwick MD HEMATOLOGY & PF4 ORDERABLES Fin al Result Performing Organization Address [facility] de Phone Number [facility] [address] [place] [address] * ELECTROLYTES (02/18/2020 20:34 EDT) [facility] Sodium 143 136 - 145 mEq/L 02/18/2020 20:56 EDT [facility] Potassium 3.5 3.5 - 5.0 mEq/L 02/18/2020 20:56 EDT [facility] Chloride 110 96 - 110 mEq/L 02/18/2020 20:56 EDT [facility] CO2 Total 31 22 - 32 mEq/L 02/18/2020 20:56 EDT [facility] Blood VENOUS BLOOD / Unknown Venipuncture / Unknown 02/18/2020 20:34 EDT 02/18/2020 20:38 EDT Parag Eid MD CHEMISTRY & BLOOD GAS ORDERAB LES Final Result Performing Organization Address [facility] Co de Phone Number [facility] [address] [place] [address] * (ABNORMAL) LUPUS ANTICOAGULANT CASCADE (02/18/2020 20:34 EDT) [facility] [place] Summary Negative for detection of lupus anticoagulant [...] Woodruff MD 02/22/20 14:57 02/22/2020 14:57 EDT [facility] Dilute Viper Venom 39.6(H) 27.2 - 36.9 secs 02/22/2020 14:57 EDT [facility] Silica Clotting Time 40.1 30.2 - 48.4 secs 02/22/2020 14:57 EDT [facility] Blood VENOUS BLOOD / Unknown Venipuncture / Unknown 02/18/2020 20:34 EDT 02/18/2020 20:38 EDT us Frank Hardwick MD HEMATOLOGY & PF4 ORDERABLES Fin al Result [facility] [address] [place] [address] * (ABNORMAL) POCT GLUCOSE, INTERFACED (02/18/2020 17:23 EDT) Glucose, POC 105(H) 70 - 100 mg/dL 02/18/2020 17:24 EDT [facility] engine boss ID [id number] 02/18/2020 17:24 EDT [facility] HN LAB POC COMMENT (GLUCOSE) Test Performed by Nursing Services 02/18/2020 17:24 EDT [facility] Blood CAPILLARY BLOOD / Unknown 02/18/2020 17:23 EDT 02/18/2020 17:24 EDT us Joyce Lee MD POINT OF CARE TEST ORDERABLES Fi nal Result [facility] [address] [place] [address] * (ABNORMAL) ELECTROLYTES (02/18/2020 12:13 EDT) Sodium 141 136 - 145 mEq/L 02/18/2020 12:49 EDT [facility] Potassium 3.7 3.5 - 5.0 mEq/L 02/18/2020 12:49 EDT [facility] Chloride 112(H) 96 - 110 mEq/L 02/18/2020 12:49 EDT [facility] CO2 Total 28 22 - 32 mEq/L 02/18/2020 12:49 EDT [facility] Blood VENOUS BLOOD / Unknown Venipuncture / Unknown 02/18/2020 12:13 EDT 02/18/2020 12:20 EDT us Parag Eid MD CHEMISTRY & BLOOD GAS ORDERAB LES Final Result [facility] [address] [place] [address] * (ABNORMAL) POCT GLUCOSE, INTERFACED (02/18/2020 11:27 EDT) Glucose, POC 113(H) 70 - 100 mg/dL 02/18/2020 11:28 EDT [facility] engine boss ID [id number] 02/18/2020 11:28 EDT [facility] HN LAB POC COMMENT (GLUCOSE) Test Performed by Nursing Services 02/18/2020 11:28 EDT [facility] Blood CAPILLARY BLOOD / Unknown 02/18/2020 11:27 EDT 02/18/2020 11:28 EDT us Joyce Lee MD POINT OF CARE TEST ORDERABLES Fi nal Result [facility] [address] [place] [address] * PHOSPHORUS (02/18/2020 5:44 EDT) Phosphorus 2.8 2.5 - 4.5 mg/dL 02/18/2020 6:41 EDT [facility] Blood VENOUS BLOOD / Unknown Venipuncture / Unknown 02/18/2020 5:44 EDT 02/18/2020 6:11 EDT Parag Eid MD CHEMISTRY & BLOOD GAS ORDERAB LES Final Result Performing Organization Address [facility]/ZIP Co de Phone Number [facility] [address] [place] [address] * MAGNESIUM (02/18/2020 5:44 EDT) Magnesium 2.2 1.7 - 2.8 mg/dL 02/18/2020 6:41 EDT [facility] Blood VENOUS BLOOD / Unknown Venipuncture / Unknown 02/18/2020 5:44 EDT 02/18/2020 6:11 EDT Parag Eid MD CHEMISTRY & BLOOD GAS ORDERAB LES Final Result Performing Organization Address [facility] Co de Phone Number [facility] [address] [place] [address] * PROTIME (02/18/2020 5:44 EDT) I.N.R. 1.1 0.9 - 1.1 Ratio 02/18/2020 6:31 EDT [facility] Pro Time 13.2 10.3 - 13.4 secs 02/18/2020 6:31 EDT [facility] Blood VENOUS BLOOD / Unknown Venipuncture / Unknown 02/18/2020 5:44 EDT 02/18/2020 6:08 EDT Narrative [facility] - 02/18/2020 6:31 EDT Moderate Intensity Coumadin INR = 2.0-3.0 Adjustments in anticoagulant therapy dose should be based on the INR and NOT on the Protime. us Parag Eid MD HEMATOLOGY & PF4 ORDERABLES F inal Result [facility] [address] [place] [address] * PTT (02/18/2020 5:44 EDT) PTT 27 26 - 37 secs 02/18/2020 6:31 EDT [facility] Blood VENOUS BLOOD / Unknown Venipuncture / Unknown 02/18/2020 5:44 EDT 02/18/2020 6:08 EDT us Parag Eid MD HEMATOLOGY & PF4 ORDERABLES F inal Result Performing Organization Address City/[facility]/ZIP Co de Phone Number [facility] [address] [place] [address] * BUN (02/18/2020 5:44 EDT) BUN 18 10 - 26 mg/dL 02/18/2020 6:41 EDT [facility] Blood VENOUS BLOOD / Unknown Venipuncture / Unknown 02/18/2020 5:44 EDT 02/18/2020 6:11 EDT us Parag Eid MD CHEMISTRY & BLOOD GAS ORDERAB LES Final Result Performing Organization Address City/[facility]/ZIP Co de Phone Number [facility] [address] [place] [address] * (ABNORMAL) ELECTROLYTES (02/18/2020 5:44 EDT) Sodium 141 136 - 145 mEq/L 02/18/2020 6:41 EDT [facility] Potassium 3.6 3.5 - 5.0 mEq/L 02/18/2020 6:41 EDT [facility] Chloride 112(H) 96 - 110 mEq/L 02/18/2020 6:41 EDT [facility] CO2 Total 25 22 - 32 mEq/L 02/18/2020 6:41 EDT [facility] Blood VENOUS BLOOD / Unknown Venipuncture / Unknown 02/18/2020 5:44 EDT 02/18/2020 6:11 EDT Parag Eid MD CHEMISTRY & BLOOD GAS ORDERAB LES Final Result Performing Organization Address [facility] Co de Phone Number [facility] [address] [place] [address] * (ABNORMAL) CREATININE (02/18/2020 5:44 EDT) Creatinine 0.47(L) 0.52 - 1.04 mg/dL 02/18/2020 6:41 EDT [facility] eGFR 114 >60 mL/min/1.7 3m2 02/18/2020 6:41 EDT [facility] Comment:eGFR calculated mickey redd CKD-EPI equation for non- Americans. Multiply eGFR by 1.16 for patients. Blood VENOUS BLOOD / Unknown Venipuncture / Unknown 02/18/2020 5:44 EDT 02/18/2020 6:11 EDT Joyce Lee MD CHEMISTRY & BLOOD GAS ORDERABLES Final Result Performing Organization Address [facility] Co de Phone Number [facility] [address] [place] [address] * (ABNORMAL) COMPLETE BLOOD COUNT (02/18/2020 5:44 EDT) WBC 6.87 4.00 - 12.40 K/cmm 02/18/2020 6:14 EDT [facility] RBC 3.50(L) 3.86 - 5.04 M/cmm 02/18/2020 6:14 T [facility] Hemoglobin 12.3 11.6 - 15.2 gm/dL 02/18/2020 6:14 T [facility] HCT 34.9 34.9 - 44.4 % 02/18/2020 6:14 [facility] MCV 100(H) 81 - 98 fl 02/18/2020 6:14 T [facility] MCH 35.1(H) 26.7 - 33.3 pg 02/18/2020 6:14 EDT [facility] MCHC 35.2 32.1 - 35.9 gm/dL 02/18/2020 6:14 EDT [facility] RDW-CV 14.3 <14.7 % 02/18/2020 6:14 EDT [facility] RDW-SD 52.4(H) <50.4 fl 02/18/2020 6:14 EDT [facility] PLT 142 141 - 377 K/cmm 02/18/2020 6:14 EDT [facility] MPV 11.0 9.5 - 12.7 fl 02/18/2020 6:14 EDT [facility] Blood VENOUS BLOOD / Unknown Venipuncture / Unknown 02/18/2020 5:44 EDT 02/18/2020 6:08 EDT Joyce Lee MD HEMATOLOGY & PF4 ORDERABLES Shannon l Result Performing Organization Address City/[facility] de Phone Number [facility] [address] [place] [address] * TRIGLYCERIDE (02/18/2020 5:44 EDT) [facility] Triglyceride 176 See Note mg/dL 02/18/2020 6:41 EDT [facility] Comment: Normal: ? <150 mg/dL Borderline High: ??150 - 199 mg/dL High: ? 200 - 499 mg/dL Very High: ?> or = 500 mg/dL Blood VENOUS BLOOD / Unknown Venipuncture / Unknown 02/18/2020 5:44 EDT 02/18/2020 6:11 EDT us Claus Piña MD CHEMISTRY & BLOOD GAS ORDERABLES Final Result Performing Organization Address [facility] de Phone Number [facility] [address] [place] [address] * POCT GLUCOSE, INTERFACED (02/18/2020 5:36 EDT) [facility] Glucose, POC 92 70 - 100 mg/dL 02/18/2020 5:40 EDT [facility] engine boss ID [id number] 02/18/2020 5:40 EDT [facility] HN LAB POC COMMENT (GLUCOSE) Test Performed by Nursing Services 02/18/2020 5:40 EDT [facility] Blood CAPILLARY BLOOD / Unknown 02/18/2020 5:36 EDT 02/18/2020 5:40 EDT Joyce Lee MD POINT OF CARE TEST ORDERABLES Fi nal Result Performing Organization Address City/[facility]/ZIP Co de Phone Number [facility] [address] [place] [address] * (ABNORMAL) ELECTROLYTES (02/17/2020 23:47 EDT) [facility] Sodium 138 136 - 145 mEq/L 02/18/2020 0:21 EDT [facility] Potassium 3.5 3.5 - 5.0 mEq/L 02/18/2020 0:21 EDT [facility] Chloride 114(H) 96 - 110 mEq/L 02/18/2020 0:21 T [facility] CO2 Total 22 22 - 32 mEq/L 02/18/2020 0:21 EDT [facility] Blood VENOUS BLOOD / Unknown Venipuncture / Unknown 02/17/2020 23:47 EDT 02/17/2020 23:50 EDT us Parag Eid MD CHEMISTRY & BLOOD GAS ORDERAB LES Final Result [facility] [address] [place] [address] * (ABNORMAL) POCT GLUCOSE, INTERFACED (02/17/2020 23:36 EDT) [facility] Glucose, POC 119(H) 70 - 100 mg/dL 02/17/2020 23:41 EDT [facility] engine boss ID [id number] 02/17/2020 23:41 EDT [facility] HN LAB POC COMMENT (GLUCOSE) Test Performed by Nursing Services 02/17/2020 23:41 EDT [facility] Blood CAPILLARY BLOOD / Unknown 02/17/2020 23:36 EDT 02/17/2020 23:41 EDT Joyce Lee MD POINT OF CARE TEST ORDERABLES Fi nal Result Performing Organization Address City/[facility] Co de Phone Number [facility] [address] [place] [address] * (ABNORMAL) POCT GLUCOSE, INTERFACED (02/17/2020 17:39 EDT) Glucose, POC 106(H) 70 - 100 mg/dL 02/17/2020 17:40 EDT [facility] engine boss ID [id number] 02/17/2020 17:40 EDT [facility] HN LAB POC COMMENT (GLUCOSE) Test Performed by Nursing Services 02/17/2020 17:40 EDT [facility] Blood CAPILLARY BLOOD / Unknown 02/17/2020 17:39 EDT 02/17/2020 17:40 EDT Joyce Lee MD POINT OF CARE TEST ORDERABLES Fi nal Result Performing Organization Address [facility] Co de Phone Number [facility] [address] [place] [address] * (ABNORMAL) ELECTROLYTES (02/17/2020 16:11 EDT) Sodium 139 136 - 145 mEq/L 02/17/2020 16:34 EDT [facility] Potassium 4.0 3.5 - 5.0 mEq/L 02/17/2020 16:34 EDT [facility] Comment:Slight hemolysis rodrigo ntified, interpret with caution as hemolysis will elevate potassium result. Chloride 117(H) 96 - 110 mEq/L 02/17/2020 16:34 EDT [facility] CO2 Total 18(L) 22 - 32 mEq/L 02/17/2020 16:34 EDT [facility] Blood VENOUS BLOOD / Unknown Venipuncture / Unknown 02/17/2020 16:11 EDT 02/17/2020 16:15 EDT us Parag Eid MD CHEMISTRY & BLOOD GAS ORDERAB LES Final Result Performing Organization Address City/[facility]/ZIP Co de Phone Number [facility] [address] [place] [address] * (ABNORMAL) POCT GLUCOSE, INTERFACED (02/17/2020 11:26 EDT) [facility] Glucose, POC 109(H) 70 - 100 mg/dL 02/17/2020 11:27 EDT [facility] engine boss ID [id number] 02/17/2020 11:27 EDT [facility] HN LAB POC COMMENT (GLUCOSE) Test Performed by Nursing Services 02/17/2020 11:27 EDT [facility] Blood CAPILLARY BLOOD / Unknown 02/17/2020 11:26 EDT 02/17/2020 11:27 EDT us Joyce Lee MD POINT OF CARE TEST ORDERABLES Fi nal Result Performing Organization Address [facility] Co de Phone Number [facility] [address] [place] [address] * CT HEAD VENOGRAM W CONTRAST (02/17/2020 [...] andagree with the findings. Cecelia Rosario DO [facility] ORDERABLES Final Result * (ABNORMAL) ELECTROLYTES (02/17/2020 9:45 EDT) Sodium 137 136 - 145 mEq/L 02/17/2020 10:45 EDT [facility] Potassium 3.4(L) 3.5 - 5.0 mEq/L 02/17/2020 10:45 EDT [facility] Chloride 115(H) 96 - 110 mEq/L 02/17/2020 10:45 T [facility] CO2 Total 18(L) 22 - 32 mEq/L 02/17/2020 10:45 EDT [facility] Blood VENOUS BLOOD / Unknown Venipuncture / Unknown 02/17/2020 9:45 EDT 02/17/2020 10:08 EDT us Parag Eid MD CHEMISTRY & BLOOD GAS ORDERAB LES Final Result [facility] [address] [place] [address] * PHOSPHORUS (02/17/2020 5:19 EDT) Phosphorus 2.7 2.5 - 4.5 mg/dL 02/17/2020 5:45 EDT [facility] Blood VENOUS BLOOD / Unknown Venipuncture / Unknown 02/17/2020 5:19 EDT 02/17/2020 5:25 EDT us Parag Eid MD CHEMISTRY & BLOOD GAS ORDERAB LES Final Result Performing Organization Address City/[facility]/ZIP Co de Phone Number [facility] [address] [place] [address] * (ABNORMAL) MAGNESIUM (02/17/2020 5:19 EDT) Magnesium 1.6(L) 1.7 - 2.8 mg/dL 02/17/2020 5:45 EDT [facility] Blood VENOUS BLOOD / Unknown Venipuncture / Unknown 02/17/2020 5:19 EDT 02/17/2020 5:25 EDT us Parag Eid MD CHEMISTRY & BLOOD GAS ORDERAB LES Final Result [facility] [address] [place] [address] * CREATININE (02/17/2020 5:19 EDT) Creatinine 0.55 0.52 - 1.04 mg/dL 02/17/2020 5:45 EDT [facility] eGFR 108 >60 mL/min/1.7 3m2 02/17/2020 5:45 [facility] Comment:eGFR calculated mickey redd CKD-EPI equation for non- Americans. Multiply eGFR by 1.16 for patients. Blood VENOUS BLOOD / Unknown Venipuncture / Unknown 02/17/2020 5:19 EDT 02/17/2020 5:25 EDT Joyce Lee MD CHEMISTRY & BLOOD GAS ORDERABLES Final Result [facility] [address] [place] [address] * (ABNORMAL) COMPLETE BLOOD COUNT (02/17/2020 5:19 EDT) WBC 7.76 4.00 - 12.40 K/cmm 02/17/2020 5:40 [facility] RBC 3.52(L) 3.86 - 5.04 M/cmm 02/17/2020 5:40 [facility] Hemoglobin 11.9 11.6 - 15.2 gm/dL 02/17/2020 5:40 [facility] HCT 35.5 34.9 - 44.4 % 02/17/2020 5:40 [facility] MCV 101(H) 81 - 98 fl 02/17/2020 5:40 [facility] MCH 33.8(H) 26.7 - 33.3 pg 02/17/2020 5:40 [facility] MCHC 33.5 32.1 - 35.9 gm/dL 02/17/2020 5:40 [facility] RDW-CV 14.2 <14.7 % 02/17/2020 5:40 [facility] RDW-SD 52.1(H) <50.4 fl 02/17/2020 5:40 [facility] PLT 142 141 - 377 K/cmm 02/17/2020 5:40 [facility] MPV 10.6 9.5 - 12.7 fl 02/17/2020 5:40 [facility] Blood VENOUS BLOOD / Unknown Venipuncture / Unknown 02/17/2020 5:19 EDT 02/17/2020 5:25 EDT Joyce Lee MD HEMATOLOGY & PF4 ORDERABLES Shannon l Result [facility] [address] [place] [address] * (ABNORMAL) PROTIME (02/17/2020 5:19 EDT) I.N.R. 1.2(H) 0.9 - 1.1 Ratio 02/17/2020 5:49 EDT [facility] Pro Time 13.9(H) 10.3 - 13.4 secs 02/17/2020 5:49 EDT [facility] Blood VENOUS BLOOD / Unknown Venipuncture / Unknown 02/17/2020 5:19 EDT 02/17/2020 5:25 EDT Narrative [facility] - 02/17/2020 5:49 EDT Moderate Intensity Coumadin INR = 2.0-3.0 Adjustments in anticoagulant therapy dose should be based on the INR and NOT on the Protime. Parag Eid MD HEMATOLOGY & PF4 ORDERABLES F inal Result Performing Organization Address [facility]/ZIP Co de Phone Number [facility] [address] [place] [phone] * PTT (02/17/2020 5:19 EDT) PTT 26 26 - 37 secs 02/17/2020 5:49 EDT [facility] Blood VENOUS BLOOD / Unknown Venipuncture / Unknown 02/17/2020 5:19 EDT 02/17/2020 5:25 EDT Parag Eid MD HEMATOLOGY & PF4 ORDERABLES F inal Result Performing Organization Address City/[facility]/ZIP Co de Phone Number [facility] [address] [place] [address] * (ABNORMAL) BUN (02/17/2020 5:19 EDT) BUN 9(L) 10 - 26 mg/dL 02/17/2020 5:45 EDT [facility] Blood VENOUS BLOOD / Unknown Venipuncture / Unknown 02/17/2020 5:19 EDT 02/17/2020 5:25 EDT Parag Eid MD CHEMISTRY & BLOOD GAS ORDERAB LES Final Result Performing Organization Address City/[facility]/ZIP Co de Phone Number [facility] [address] [place] [address] * (ABNORMAL) ELECTROLYTES (02/17/2020 5:19 EDT) Pathologist [facility] [place] Sodium 139 136 - 145 mEq/L 02/17/2020 5:45 EDT [facility] Potassium 3.5 3.5 - 5.0 mEq/L 02/17/2020 5:45 EDT [facility] Chloride 113(H) 96 - 110 mEq/L 02/17/2020 5:45 EDT [facility] CO2 Total 22 22 - 32 mEq/L 02/17/2020 5:45 EDT [facility] Blood VENOUS BLOOD / Unknown Venipuncture / Unknown 02/17/2020 5:19 EDT 02/17/2020 5:25 EDT us Parag Eid MD CHEMISTRY & BLOOD GAS ORDERAB LES Final Result [facility] [address] [place] [address] * (ABNORMAL) POCT GLUCOSE, INTERFACED (02/17/2020 5:18 EDT) Glucose, POC 115(H) 70 - 100 mg/dL 02/17/2020 5:23 EDT [facility] engine boss ID [id number] 02/17/2020 5:23 EDT [facility] HN LAB POC COMMENT (GLUCOSE) Test Performed by Nursing Services 02/17/2020 5:23 EDT [facility] Blood CAPILLARY BLOOD / Unknown 02/17/2020 5:18 EDT 02/17/2020 5:23 EDT us Jonatan Kang MD POINT OF CARE TEST ORDERABLES Fi nal Result [facility] [address] [place] [address] * (ABNORMAL) POCT GLUCOSE, INTERFACED (02/16/2020 23:28 EDT) Glucose, POC 120(H) 70 - 100 mg/dL 02/16/2020 23:37 EDT [facility] engine boss ID [id number] 02/16/2020 23:37 EDT [facility] HN LAB POC COMMENT (GLUCOSE) Test Performed by Nursing Services 02/16/2020 23:37 EDT [facility] Blood CAPILLARY BLOOD / Unknown 02/16/2020 23:28 EDT 02/16/2020 23:37 EDT us Joyce Lee MD POINT OF CARE TEST ORDERABLES Fi nal Result Performing Organization Address City/[facility]/ZIP Co de Phone Number [facility] [address] [place] [address] * (ABNORMAL) ELECTROLYTES (02/16/2020 23:28 EDT) Sodium 138 136 - 145 mEq/L 02/16/2020 23:55 EDT [facility] Potassium 3.2(L) 3.5 - 5.0 mEq/L 02/16/2020 23:55 EDT [facility] Chloride 111(H) 96 - 110 mEq/L 02/16/2020 23:55 EDT [facility] CO2 Total 22 22 - 32 mEq/L 02/16/2020 23:55 EDT [facility] Blood VENOUS BLOOD / Unknown Venipuncture / Unknown 02/16/2020 23:28 EDT 02/16/2020 23:32 EDT us Parag Eid MD CHEMISTRY & BLOOD GAS ORDERAB LES Final Result [facility] [address] [place] [address] * XR FEEDING TUBE PLACEMENT (02/16/2020 21:27 [...] 70 - 100 mg/dL 02/16/2020 17:37 EDT [facility] engine boss ID [id number] 02/16/2020 17:37 EDT [facility] HN LAB POC COMMENT (GLUCOSE) Test Performed by Nursing Services 02/16/2020 17:37 EDT [facility] Blood CAPILLARY BLOOD / Unknown 02/16/2020 17:37 EDT 02/16/2020 17:37 EDT us Joyce Lee MD POINT OF CARE TEST ORDERABLES Fi nal Result Performing Organization Address [facility] Co de Phone Number [facility] [address] [place] [address] * (ABNORMAL) ELECTROLYTES (02/16/2020 17:23 EDT) Sodium 134(L) 136 - 145 mEq/L 02/16/2020 17:51 EDT [facility] Potassium 3.6 3.5 - 5.0 mEq/L 02/16/2020 17:51 EDT [facility] Chloride 106 96 - 110 mEq/L 02/16/2020 17:51 EDT [facility] CO2 Total 25 22 - 32 mEq/L 02/16/2020 17:51 EDT [facility] Blood VENOUS BLOOD / Unknown Venipuncture / Unknown 02/16/2020 17:23 EDT 02/16/2020 17:29 EDT Parag Eid MD CHEMISTRY & BLOOD GAS ORDERAB LES Final Result Performing Organization Address [facility] Co de Phone Number [facility] [address] [place] [address] * CT HEAD WO CONTRAST (02/16/2020 17:13 [...] edema. There is approximately 8 mm of yyfs-nj-oasxl midline shift, slightly improved from prior (previously [...] Endotracheal tube is partially included in the rrgxb-la-pmvw. Included soft tissues are unremarkable aside from [...] surrounding edema. Thereis approximately 8 mm of orhk-pr-ojqyp midline shift, slightly improvedfrom prior (previously 10 [...] Endotracheal tube is partially included in the yrllv-vm-bmrg. Includedsoft tissues are unremarkable aside from postsurgical [...] veinof Kristen corresponds to known venous thrombosis. us Parag Eid MD IMG CT ORDERABLES Final Resul t * (ABNORMAL) POCT BLOOD GAS, EG6 I-STAT (02/16/2020 16:35 EDT) iSTAT pH 7.44 7.35 - 7.45 02/16/2020 16:41 [facility] iSTAT pCO2 34(L) 35 - 45 mmHg 02/16/2020 16:41 [facility] i-STAT pO2 137(H) 80 - 105 mmHg 02/16/2020 16:41 [facility] iSTAT TCO2 24 23 - 27 mmol/L 02/16/2020 16:41 [facility] i-STAT O2 Saturation 99(H) 95 - 98 % 02/16/2020 16:41 [facility] Base Deficit, i-STAT 1 -2 - 3 02/16/2020 16:41 [facility] Sample Source ARTERIAL 02/16/2020 16:41 [facility] engine boss ID [id number] 02/16/2020 16:41 [facility] Comment (EG6) Test Performed by Respiratory. For non-arterial reference ranges, please see ISTAT procedure 02/16/2020 16:41 [facility] Comment:For arterial collect ion, the Laboratory recommends that the Modified Bertin test be performed to determine that collateral circulation is present from the ulnar artery in the event that thrombosis of the radial artery should occur. Performance of the Modified Bertni test should be documented in the patients' chart Blood ARTERIAL LINE TIP SUBMITTED SPECIMEN / Unknown 02/16/2020 16:35 EDT 02/16/2020 16:41 EDT Michelet Paz MD POINT OF CARE TEST ORDERAB LES Final Result [facility] [address] [place] [address] * US UPPER VENOUS DUPLEX (DVT) BILATERAL [...] echoes present. us Aníbal Leon MD IMG US VASCULAR ORDERABLES Final Result * US LOWER [...] therapy and Hypercoaguable state. Parag Eid MD [facility] VASCULAR ORDERABLES Fi nal Result * SURGICAL PATHOLOGY (02/16/2020 12:30 EDT) Final Diagnosis A. HEMORRHAGE, LEFT TEMPOROPARIETAL, RESECTION: - Acute hemorrhage with small fragments of brain and vascular tissue, see comment. 02/19/2020 13:44 [facility] at 1343 Diagnosis Comment Microscopic review shows abundant acute hemorrhage with scattered small fragments of unremarkable neuropil and vascular structures. 02/19/2020 13:44 [facility] Attestation By the signature below, the attending physician certifies that they have 1) personally conducted a gross and/or microscopic examination of the described specimen(s), and/or personally interpreted the results of laboratory testing of the described specimen(s), and 2) personally rendered or confirmed the above diagnosis. 02/19/2020 13:44 EDT [facility] at 1343 Clinical History Cerebral venous thrombosis; intraparenchymal hemorrhage of brain 02/19/2020 13:44 EDT [facility] Gross Description A. Received in normal saline labelled with proper patient identification (initials C, L) and clot is an ovoid portion of red-brown ragged to cauterized hemorrhage (4.5 x 2.6 x 1.8 cm). The cut surfaces are red solid and homogeneous. Cleaner sections are submitted in A1-A2. Batsheva Day 02/16/2020 16:02 02/19/2020 13:44 EDT [facility] Scanned Images 02/19/2020 13:44 EDT [facility] Tissue HEMATOMA / Unknown 0 12:30 EDT 02/16/2020 14:31 EDT Claus Piña MD PATHOLOGY ORDERABLES Final Resul t Performing Organization Address City/[facility]/ZIP Co de Phone Number [facility] [address] [place] [address] * (ABNORMAL) PROTIME (02/16/2020 12:04 EDT) I.N.R. 1.2(H) 0.9 - 1.1 Ratio 02/16/2020 12:31 EDT [facility] Pro Time 13.7(H) 10.3 - 13.4 secs 02/16/2020 12:31 EDT [facility] Blood VENOUS BLOOD / Unknown Venipuncture / Unknown 02/16/2020 12:04 EDT 02/16/2020 12:09 EDT Narrative [facility] - 02/16/2020 12:31 EDT Moderate Intensity Coumadin INR = 2.0-3.0 Adjustments in anticoagulant therapy dose should be based on the INR and NOT on the Protime. Trenton Marlow MD HEMATOLOGY & PF4 ORDERA BLES Final Result [facility] [address] [place] [address] * PTT (02/16/2020 12:04 EDT) PTT 28 26 - 37 secs 02/16/2020 12:31 EDT [facility] Blood VENOUS BLOOD / Unknown Venipuncture / Unknown 02/16/2020 12:04 EDT 02/16/2020 12:09 EDT us Trenton Marlow MD HEMATOLOGY & PF4 ORDERA BLES Final Result [facility] [address] [place] [address] * HEPARIN LEVEL - UNFRACTIONATED HEPARIN (02/16/2020 12:04 EDT) Pathologist [facility] [place] Heparin Level-UFH <0.10 Therapeutic Range: 0.30 - 0.70 IU/mL 02/16/2020 12:30 EDT [facility] Blood VENOUS BLOOD / Unknown Venipuncture / Unknown 02/16/2020 12:04 EDT 02/16/2020 12:09 EDT us Trenton Marlow MD HEMATOLOGY & PF4 ORDERA BLES Final Result [facility] [address] [place] [address] * (ABNORMAL) POCT BLOOD GAS, CG8 I-STAT (02/16/2020 11:40 EDT) iSTAT pH 7.40 7.35 - 7.45 02/16/2020 11:45 EDT [facility] iSTAT pCO2 41 35 - 45 mmHg 02/16/2020 11:45 EDT [facility] i-STAT pO2 151(H) 80 - 105 mmHg 02/16/2020 11:45 EDT [facility] iSTAT TCO2 27 23 - 27 mmol/L 02/16/2020 11:45 EDT [facility] i-STAT O2 Saturation 99(H) 95 - 98 % 02/16/2020 11:45 EDT [facility] iSTAT Sodium 136 136 - 145 mmol/L 02/16/2020 11:45 T [facility] iSTAT Potassium 3.5 3.5 - 5.0 mmol/L 02/16/2020 11:45 T [facility] iSTAT Glucose 127(H) 70 - 100 mg/dL 02/16/2020 11:45 T [facility] iSTAT Hematocrit 37 35 - 44 % PCV 02/16/2020 11:45 T [facility] iSTAT Ionized Calcium 1.13 1.12 - 1.32 mmol/L 02/16/2020 11:45 [facility] Base Excess 1 -2 - 3 mmol/L 02/16/2020 11:45 [facility] Sample Source NOT GIVEN 02/16/2020 11:45 [facility] engine boss ID [id number] 02/16/2020 11:45 [facility] HN LAB POC COMMENT (CG8) Test performed by Anesthesia. Therapeutic interventaional range is dependent upon patient population and procedure type. 02/16/2020 11:45 T [facility] Comment:For arterial collect ion, the [...] OF CARE TEST ORDERAB LES Final Result [facility] [address] [place] [address] * TYPE AND SCREEN (02/16/2020 9:50 EDT) ABO AB 02/16/2020 11:25 EDT [facility] Rh Factor Positive 02/16/2020 11:25 EDT [facility] Antibody Screen Negative 02/16/2020 11:25 EDT [facility] Specimen Expires: 02/19/2020 @ 23:59 02/16/2020 11:25 EDT [facility] Blood VENOUS BLOOD / Unknown Venipuncture / Unknown 02/16/2020 9:50 EDT 02/16/2020 10:31 EDT us Trenton Marlow MD BLOOD BANK TESTS Edited Result - Final Performing Organization Address City/[facility]/ZIP Co de Phone Number [facility] [address] [place] [address] * (ABNORMAL) POCT GLUCOSE, INTERFACED (02/16/2020 5:27 EDT) [facility] Glucose, POC 139(H) 70 - 100 mg/dL 02/16/2020 8:51 EDT [facility] engine boss ID [id number] 02/16/2020 8:51 EDT [facility] HN LAB POC COMMENT (GLUCOSE) Test Performed by Nursing Services 02/16/2020 8:51 EDT [facility] Blood CAPILLARY BLOOD / Unknown 02/16/2020 5:27 EDT 02/16/2020 8:51 EDT us Joyce Lee MD POINT OF CARE TEST ORDERABLES Fi nal Result Performing Organization Address [facility] Co de Phone Number [facility] [address] [place] [address] * CT HEAD WO CONTRAST (02/16/2020 4:52 [...] with the findings. us Cecelia Rosario DO [facility] ORDERABLES Final Result * CREATININE (02/16/2020 3:08 EDT) Creatinine 0.62 0.52 - 1.04 mg/dL 02/16/2020 3:49 EDT [facility] eGFR 104 >60 mL/min/1.7 3m2 02/16/2020 3:49 EDT [facility] Comment:eGFR calculated mickey redd CKD-EPI equation for non- Americans. Multiply eGFR by 1.16 for patients. Blood VENOUS BLOOD / Unknown Venipuncture / Unknown 02/16/2020 3:08 EDT 02/16/2020 3:12 EDT Joyce Lee MD CHEMISTRY & BLOOD GAS ORDERABLES Final Result [facility] [address] [place] [address] * (ABNORMAL) ELECTROLYTES (02/16/2020 3:08 EDT) Sodium 133(L) 136 - 145 mEq/L 02/16/2020 3:49 EDT [facility] Potassium 3.8 3.5 - 5.0 mEq/L 02/16/2020 3:49 EDT [facility] Chloride 101 96 - 110 mEq/L 02/16/2020 3:49 EDT [facility] CO2 Total 25 22 - 32 mEq/L 02/16/2020 3:49 T [facility] Blood VENOUS BLOOD / Unknown Venipuncture / Unknown 02/16/2020 3:08 EDT 02/16/2020 3:12 EDT Joyce Lee MD CHEMISTRY & BLOOD GAS ORDERABLES Final Result Performing Organization Address City/State/[facility] Co de Phone Number [facility] [address] [place] [address] * (ABNORMAL) COMPLETE BLOOD COUNT (02/16/2020 3:08 EDT) WBC 9.67 4.00 - 12.40 K/cmm 02/16/2020 3:22 [facility] RBC 4.22 3.86 - 5.04 M/cmm 02/16/2020 3:22 [facility] Hemoglobin 14.1 11.6 - 15.2 gm/dL 02/16/2020 3:22 [facility] HCT 40.8 34.9 - 44.4 % 02/16/2020 3:22 [facility] MCV 97 81 - 98 fl 02/16/2020 3:22 [facility] MCH 33.4(H) 26.7 - 33.3 pg 02/16/2020 3:22 [facility] MCHC 34.6 32.1 - 35.9 gm/dL 02/16/2020 3:22 [facility] RDW-CV 13.8 <14.7 % 02/16/2020 3:22 [facility] RDW-SD 48.6 <50.4 fl 02/16/2020 3:22 EDT [facility] PLT 154 141 - 377 K/cmm 02/16/2020 3:22 EDT [facility] MPV 10.3 9.5 - 12.7 fl 02/16/2020 3:22 EDT [facility] Blood VENOUS BLOOD / Unknown Venipuncture / Unknown 02/16/2020 3:08 EDT 02/16/2020 3:12 EDT Joyce Lee MD HEMATOLOGY & PF4 ORDERABLES Shannon l Result Performing Organization Address City/[facility]/ZIP Co de Phone Number [facility] [address] [place] [address] * HEPARIN LEVEL - UNFRACTIONATED HEPARIN (02/16/2020 3:08 EDT) Heparin Level-UFH 0.60 Therapeutic Range: 0.30 - 0.70 IU/mL 02/16/2020 3:40 EDT [facility] Comment:Unfractionated hepar in therapeutic range [...] EDT 02/16/2020 3:12 EDT Joyce Lee MD HEMATOLOGY & PF4 ORDERABLES Shannon l Result Performing Organization Address City/[facility]/ZIP Co de Phone Number [facility] [address] [place] [address] * (ABNORMAL) POCT GLUCOSE, INTERFACED (02/16/2020 0:56 EDT) Glucose, POC 131(H) 70 - 100 mg/dL 02/16/2020 8:50 EDT [facility] engine boss ID [id number] 02/16/2020 8:50 EDT [facility] HN LAB POC COMMENT (GLUCOSE) Test Performed by Nursing Services 02/16/2020 8:50 EDT [facility] Blood CAPILLARY BLOOD / Unknown 02/16/2020 0:56 EDT 02/16/2020 8:50 EDT us Joyce Lee MD POINT OF CARE TEST ORDERABLES Fi nal Result Performing Organization Address [facility] Co de Phone Number [facility] [address] [place] [address] * (ABNORMAL) POCT GLUCOSE, INTERFACED (02/15/2020 18:12 EDT) Glucose, POC 128(H) 70 - 100 mg/dL 02/16/2020 8:49 EDT [facility] engine boss ID [id number] 02/16/2020 8:49 EDT [facility] HN LAB POC COMMENT (GLUCOSE) Test Performed by Nursing Services 02/16/2020 8:49 EDT [facility] Blood CAPILLARY BLOOD / Unknown 02/15/2020 18:12 EDT 02/16/2020 8:49 EDT us Joyce Lee MD POINT OF CARE TEST ORDERABLES Fi nal Result Performing Organization Address [facility] de Phone Number [facility] [address] [place] [address] * US ABDOMEN LIMITED (02/15/2020 17:40 EDT) [...] ABDOMINAL AORTA / IVC: Normal Procedure Note Tino Tenorio MD - 02/15/2020 US ABDOMEN LIMITED 02/15/2020 [...] with the findings. us Cecelia Rosario DO IMG US ORDERABLES Final Result * TRANSTHORACIC ECHO [...] color Doppler.The study was interpreted by [facility]. Pertinent images and digital [...] us Aníbal Leon MD CARDIAC ECHO ORDERABLES [facility] al Result * HEPARIN LEVEL - UNFRACTIONATED HEPARIN (02/15/2020 15:17 EDT) Heparin Level-UFH 0.51 Therapeutic Range: 0.30 - 0.70 IU/mL 02/15/2020 15:38 EDT [facility] Comment:Unfractionated hepar in therapeutic range [...] HEMATOLOGY & PF4 ORDERABLES Shannon l Result [facility] [address] [place] [address] * ECG REPORT - SCANNED (02/15/2020 14:37 EDT) 02/15/2020 14:3 7 EDT us Scan 2 Transport Specialist PROCEDURE/MINOR SURGICAL OR DERABLES Final Result * [...] spine. There are no concerning osseous lesions. Junior Project Manager: No additional findings. Procedure Note Tegan Ponce [...] thoracic spine. Thereare no concerning osseous lesions. Junior Project Manager: No additional findings. IMPRESSION 1. No adnexal mass or evidence of malignancy in the abdomen or pelvis.Endovaginal ultrasound however is a better modality then CT to evaluatethe ovaries 2. Probable benign hepatic cysts. I have personally reviewed the images and the above interpretation andagree with the findings. Reno Castrejon MD [facility] ORDERABLES Final Result * CT HEAD [...] andagree with the findings. Reno Castrejon MD IMG CT ORDERABLES Final Result * (ABNORMAL) POCT GLUCOSE, INTERFACED (02/15/2020 12:20 EDT) Glucose, POC 138(H) 70 - 100 mg/dL 02/15/2020 12:25 EDT [facility] engine boss ID [id number] 02/15/2020 12:25 EDT [facility] HN LAB POC COMMENT (GLUCOSE) Test Performed by Nursing Services 02/15/2020 12:25 EDT [facility] Blood CAPILLARY BLOOD / Unknown 02/15/2020 12:20 EDT 02/15/2020 12:25 EDT Joyce Lee MD POINT OF CARE TEST ORDERABLES Fi nal Result [facility] [address] [place] [address] * (ABNORMAL) PROTEIN S ACTIVITY (02/15/2020 8:42 EDT) Protein S Activity >150(H) 64 - 147 % 02/17/2020 11:20 EDT [facility] Comment: a.Acquired Protein S deficiencies [...] HEMATOLOGY & PF4 ORDERABLES Fin al Result [facility] [address] [place] [address] * (ABNORMAL) PROTEIN C ACTIVITY (02/15/2020 8:42 EDT) Protein C Clot 55(L) 71 - 199 % 02/17/2020 11:20 EDT [facility] Comment: a. Acquired Protein C [...] ORDERABLES Fin al Result Performing Organization Address City/[facility]/ZIP Co de Phone Number [facility] [address] [place] [address] * (ABNORMAL) POCT GLUCOSE, INTERFACED (02/15/2020 6:15 EDT) Glucose, POC 126(H) 70 - 100 mg/dL 02/15/2020 6:16 EDT [facility] engine boss ID [id number] 02/15/2020 6:16 EDT [facility] HN LAB POC COMMENT (GLUCOSE) Test Performed by Nursing Services 02/15/2020 6:16 EDT [facility] Blood CAPILLARY BLOOD / Unknown 02/15/2020 6:15 EDT 02/15/2020 6:15 EDT us Joyce Lee MD POINT OF CARE TEST ORDERABLES Fi nal Result Performing Organization Address [facility] Co de Phone Number [facility] [address] [place] [address] * BETA 2 GLYCOPROTEIN ANTIBODY PANEL (02/15/2020 3:15 EDT) [facility] Beta 2 GP1 Ab IgG, S <9.4 <15.0 (Negative ) U/mL 02/18/2020 14:[address] [facility] Beta 2 GP1 Ab IgM, S <9.4 <15.0 (Negative ) U/mL 02/18/2020 14:[address] [facility] Comment: Test Performed by: [facility] [address] [place] [address] An/Ssn 2 4 Operator: Kain Shay M.D. Ph.D.; CLIA# [id number] Blood VENOUS BLOOD / Unknown Venipuncture / Unknown 02/15/2020 3:15 EDT 02/15/2020 3:30 EDT Frank Hardwick MD IMMUNOLOGY AND SEROLOGY ORDERAB LES Final Result Performing Organization Address City/[facility]/ZIP Co de Phone Number [facility] [address] [place] [address] * FACTOR V LEIDEN ([id number]) MUTATION, BLOOD (02/15/2020 3:15 EDT) Factor V Leiden Mutation B Negative Negative 02/17/2020 16:27 EDT [facility] F5DNA Interpretation SEE NOTE 02/17/2020 16:27 EDT [facility] Comment: This individual DOES NOT have the [...] of sequence specific alleles ([employer], [employer], [place], [place]). This test has been modified from the gaming surveillance observer's instructions. Its performance characteristics were determined by [facility] in a manner consistent with CLIA requirements. This test has not been cleared or approved by the U.S. Food and Drug Administration. F5DNA Reviewed By SEE NOTE 020 16:[address] [facility] [employer] Comment: RESULT: Glenn Freeman M.D., Ph.D. Test Performed by: [address] [address] An/Ssn 2 4 Operator: Kain Shay M.D. Ph.D.; CLIA# [id number] Blood VENOUS BLOOD / Unknown Venipuncture / Unknown 02/15/2020 3:15 EDT 02/15/2020 3:20 EDT us Cecelia Rosario DO PACKAGES & DNA PROBE ORDERABLES Final Result [address] [address] * (ABNORMAL) CARDIOLIPIN ANTIBODY (02/15/2020 3:15 EDT) Cardiolipin IgG 2.18 <15.00 GPL 02/18/2020 12:33 EDT [facility] Comment: ?IgG Negative: ??<15.00 GPL ?Indeterminate: ??15.00 - <20.00 GPL ?Low to Medium Positive: ??20.00 - 80.00 GPL ?Strongly Positive: ??> 80.00 GPL Cardiolipin IgM 14.14(H) <12.50 MPL 02/18/2020 12:33 EDT [facility] Comment: ?IgM Negative: ??<12.50 MPL ?Indeterminate: ??12.50 - <20.00 MPL ?Low to Medium Positive: 20.00 - 80.00 MPL ?Strongly Positive: ??>80.00 MPL Results were obtained with the [employer] RUSTY IgG and IgM III TANI kits. Cardiolipin IgG and IgM values obtained with different manufacturers' assay methods may not be used interchangeably. ??The magnitude of the reported IgG and IgM levels cannot be correlated to an endpoint titer. Blood VENOUS BLOOD / Unknown Venipuncture / Unknown 02/15/2020 3:15 EDT 02/15/2020 3:30 EDT Cecelia Rosario DO IMMUNOLOGY AND SEROLOGY ORDERAB LES Final Result [facility] [address] [place] [address] * CREATININE (02/15/2020 3:15 EDT) Creatinine 0.61 0.52 - 1.04 mg/dL 02/15/2020 3:59 EDT [facility] eGFR 105 >60 mL/min/1.7 3m2 02/15/2020 3:59 EDT [facility] Comment:eGFR calculated mickey redd CKD-EPI equation for non- Americans. Multiply eGFR by 1.16 for patients. Blood VENOUS BLOOD / Unknown Venipuncture / Unknown 02/15/2020 3:15 EDT 02/15/2020 3:30 EDT Joyce Lee MD CHEMISTRY & BLOOD GAS ORDERABLES Final Result Performing Organization Address City/[facility]/ZIP Co de Phone Number [facility] [address] [place] [address] * ELECTROLYTES (02/15/2020 3:15 EDT) Sodium 136 136 - 145 mEq/L 02/15/2020 3:59 EDT [facility] Potassium 4.1 3.5 - 5.0 mEq/L 02/15/2020 3:59 EDT [facility] Chloride 103 96 - 110 mEq/L 02/15/2020 3:59 EDT [facility] CO2 Total 23 22 - 32 mEq/L 02/15/2020 3:59 EDT [facility] Blood VENOUS BLOOD / Unknown Venipuncture / Unknown 02/15/2020 3:15 EDT 02/15/2020 3:30 EDT Joyce Lee MD CHEMISTRY & BLOOD GAS ORDERABLES Final Result Performing Organization Address City/[facility] Co de Phone Number [facility] [address] [place] [address] * (ABNORMAL) COMPLETE BLOOD COUNT (02/15/2020 3:15 EDT) WBC 9.07 4.00 - 12.40 K/cmm 02/15/2020 3:27 EDT [facility] RBC 4.84 3.86 - 5.04 M/cmm 02/15/2020 3:27 EDT [facility] Hemoglobin 15.9(H) 11.6 - 15.2 gm/dL 02/15/2020 3:27 EDT [facility] HCT 47.3(H) 34.9 - 44.4 % 02/15/2020 3:27 EDT [facility] MCV 98 81 - 98 fl 02/15/2020 3:27 EDT [facility] MCH 32.9 26.7 - 33.3 pg 02/15/2020 3:27 EDT [facility] MCHC 33.6 32.1 - 35.9 gm/dL 02/15/2020 3:27 EDT [facility] RDW-CV 13.2 <14.7 % 02/15/2020 3:27 EDT [facility] RDW-SD 47.7 <50.4 fl 02/15/2020 3:27 EDT [facility] PLT 158 141 - 377 K/cmm 02/15/2020 3:27 EDT [facility] MPV 10.3 9.5 - 12.7 fl 02/15/2020 3:27 EDT [facility] Blood VENOUS BLOOD / Unknown Venipuncture / Unknown 02/15/2020 3:15 EDT 02/15/2020 3:20 EDT Joyce Lee MD HEMATOLOGY & PF4 ORDERABLES Shannon l Result Performing Organization Address [facility] Co de Phone Number [facility] [address] [place] [address] * HEPARIN LEVEL - UNFRACTIONATED HEPARIN (02/15/2020 3:15 EDT) Heparin Level-UFH 0.55 Therapeutic Range: 0.30 - 0.70 IU/mL 02/15/2020 3:44 EDT [facility] Comment:Unfractionated hepar in therapeutic range [...] Unknown 02/15/2020 3:15 EDT 02/15/2020 3:19 EDT Joyce Lee MD HEMATOLOGY & PF4 ORDERABLES Shannon l Result Performing Organization Address [facility] Co de Phone Number [facility] [address] [place] [address] * CT HEAD WO CONTRAST (02/15/2020 2:49 [...] (02/15/2020 1:52 EDT) 02/15/2020 1:52 EDT Narrative [facility] EKG - 02/15/2020 14:33 EDT ? [facility] ? Test Date: ?2020-02-15 Pat Name: ? YNES WHITE ? Department: ?? Miguelito Cruz ? Room: ? M307 Gender: ? Female ? Community Health Planning Director: ?? [id number] : ?1970 ? Requested By: BARBRA DICK Order Number: [id number] ? Reading MD: ?? RENO AZEVEDO MD ? Measurements Intervals ?[place] ? Rate: ? 68 ? P: ?43 PA: ? 126 ?QRS: ?16 QRSD: ? 89 [...] [facility] Center Test Date: 2020-02-15 Pat Name: YNES WHITE Department: Miguelito Cruz Room: [facility] Gender: Female Community Health Planning Director: [id number] : 1970 Requested By: BARBRA DICK Order Number: [id number] Reading MD: RENO AZEVEDO MD Measurements Intervals [place] Rate: 68 P: 43 PA: 126 QRS: 16 QRSD: 89 T: 12 QT: 438 QTc: 469 Interpretive Statements SINUS RHYTHM WITH MARKED SINUS ARRHYTHMIA LOW QRS VOLTAGE IN PRECORDIAL LEADS NONSPECIFIC ST & T-WAVE ABNORMALITY No previous ECG available for comparison I reviewed the tracing and have either agreed or edited the findings inthis report. Electronically Signed On 02-15-2020 14:33:31 EDT by RENO FORREST. Joyce Lee MD CARDIAC ECG ORDERABLES Final Res ult [facility] EKG * CT HEAD WO CONTRAST (02/15/2020 [...] the above interpretation andagree with the findings. Joyce Lee MD IMG CT ORDERABLES Final Result * (ABNORMAL) POCT GLUCOSE, INTERFACED (02/14/2020 23:54 EDT) [facility] Glucose, POC 111(H) 70 - 100 mg/dL 02/14/2020 23:55 EDT [facility] LABORATORY engine boss ID [id number] 02/14/2020 23:55 EDT [facility] HN LAB POC COMMENT (GLUCOSE) Test Performed by Nursing Services 02/14/2020 23:55 EDT [facility] Blood CAPILLARY BLOOD / Unknown 02/14/2020 23:54 EDT 02/14/2020 23:55 EDT Joyce Lee MD POINT OF CARE TEST ORDERABLES Fi nal Result Performing Organization Address City/[facility]/ZIP Co de Phone Number [facility] [address] [place] [address] * MRSA PCR (02/14/2020 22:54 EDT) [facility] MRSA/Staph aureus Result No Staphyloccus aureus detected by PCR Staphylococcus aureus detected by PCR, No Staphyloccus aureus detected by PCR 02/15/2020 11:53 EDT [facility] Swab ENTIRE NARIS / Unknown Swab / Unknown 02/14/2020 22:54 EDT 02/15/2020 7:09 EDT us Amber Greene MD MICROBIOLOGY - GENERAL O RDERABLES Final Result [facility] [address] [place] [id number] * TROPONIN I (02/14/2020 20:53 EDT) [facility] Troponin I (ng/mL) <0.034 <0.034 ng/mL 02/14/2020 21:52 EDT [facility] Blood VENOUS BLOOD / Unknown Venipuncture / Unknown 02/14/2020 20:53 EDT 02/14/2020 21:26 EDT Narrative [facility] - 02/14/2020 21:52 EDT The results of this assay can be falsely lowered due to the consumption of Biotin. Joyce Lee MD CHEMISTRY & BLOOD GAS ORDERABLES Final Result [facility] [address] [place] [address] * CT HEAD VENOGRAM W CONTRAST (02/14/2020 [...] IMG CT ORDERABLES Fi nal Result * CT [...] andagree with the findings. Brayan Plummer MD IMG CT ORDERABLES Fi nal Result * PA CRITICAL CARE ILL/INJURED PATIENT INIT 30-74 MIN, HC - CRITICAL CARE ILL/INJURED PATIENT INIT 30-74 MIN (02/14/2020 18:00 EDT) Narrative [facility] EKG - 02/14/2020 18:00 EDT Toni Gilbert [...] or life-threatening deterioration of the following conditions: ??WIRE STRANDER failure or compromise ??Critical care was time [...] MD PROCEDURE/MINOR SURGICAL ORDE TAY Final Result [facility] EKG * LIPID PROFILE (INCLUDES CHOLESTEROL, TRIGLYCERIDES, HDL, LDL) (02/14/2020 17:48 EDT) Cholesterol 161 See Note mg/dL 02/14/2020 21:27 EDT [facility] Comment: Acceptable: ?<200 mg/dL Borderline High: 200-239 mg/dL High: ?> or = 240 mg/dL HDL 59 See Note mg/dL 02/14/2020 21:27 EDT [facility] Comment: Low: ? <40 mg/dL Normal: ??40-60 mg/dL High: ?>60 mg/dL LDL, Calculated 81 See Note mg/dL 02/14/2020 21:27 EDT [facility] Comment: Optimal: ? <100 mg/dL Near Optimal: ?100-129 mg/dL Borderline High: 130-159 mg/dL High: ?160-189 mg/dL Very High: ? > or = 190 mg/dL Triglyceride 103 See Note mg/dL 02/14/2020 21:27 EDT [facility] Comment: Normal: ? <150 mg/dL Borderline High: ??150 - 199 mg/dL High: ? 200 - 499 mg/dL Very High: ?> or = 500 mg/dL Chol/HDL Ratio 2.7 See Note 02/14/2020 21:27 T [facility] Comment: No reference range has been established for CHOL/HDL ratio. Non HDL Cholesterol 102 See Note mg/dL 02/14/2020 21:27 T [facility] Comment: Desirable: ?<130 mg/dL Borderline High: ??130-159 mg/dL High: ? 160-189 mg/dL Very High: ?> or = 190 mg/dL Blood VENOUS BLOOD / Unknown Venipuncture / Unknown 02/14/2020 17:48 EDT 02/14/2020 17:50 EDT Joyce Lee MD CHEMISTRY & BLOOD GAS ORDERABLES Final Result [facility] [address] [place] [address] * HEMOGLOBIN A1C (02/14/2020 17:48 EDT) Hemoglobin A1c 5.4 <5.7 % 02/15/2020 8:50 EDT [facility] Comment: Glycemic Status References: Normal: [...] Avg Glucose 108 mg/dL 0 8:50 EDT [facility] Comment: The eAG represents the A1c result expressed as average glucose in mg/dL. Blood VENOUS BLOOD / Unknown Venipuncture / Unknown 02/14/2020 17:48 EDT 02/14/2020 17:50 EDT Joyce Lee MD CHEMISTRY & BLOOD GAS ORDERABLES Final Result [facility] [address] [place] [address] * (ABNORMAL) BASIC METABOLIC PANEL (BMP) (02/14/2020 17:48 EDT) Sodium 135(L) 136 - 145 mEq/L 02/14/2020 18:24 EDT [facility] Potassium 4.7 3.5 - 5.0 mEq/L 02/14/2020 18:24 [facility] Comment:Slight hemolysis rodrigo ntified, interpret with caution as hemolysis will elevate potassium result. Chloride 105 96 - 110 mEq/L 02/14/2020 18:24 T [facility] CO2 Total 26 22 - 32 mEq/L 02/14/2020 18:24 [facility] Glucose 107(H) 70 - 100 mg/dL 02/14/2020 18:24 [facility] Calcium 8.8 8.5 - 10.5 mg/dL 02/14/2020 18:24 [facility] Calculated Calcium 9.1 8.5 - 10.5 mg/dL 02/14/2020 18:24 [facility] Comment:Slight hemolysis rodrigo ntified, interpret with caution as results may be affected due to hemolysis. BUN 11 10 - 26 mg/dL 02/14/2020 18:24 [facility] Comment: Slight hemolysis identified, interpret with caution as results may be affected due to hemolysis. Creatinine 0.66 0.52 - 1.04 mg/dL 02/14/2020 18:24 [facility] eGFR 102 >60 mL/min/1.7 3m2 02/14/2020 18:24 [facility] Comment:eGFR calculated mickey redd CKD-EPI equation for non- Americans. Multiply eGFR by 1.16 for patients. Blood VENOUS BLOOD / Unknown Venipuncture / Unknown 02/14/2020 17:48 EDT 02/14/2020 17:50 EDT us Brayan Plummer MD CHEMISTRY & BLOOD GA S ORDERABLES Final Result [facility] [address] [place] [address] * (ABNORMAL) COMPLETE BLOOD COUNT AND DIFFERENTIAL (02/14/2020 17:48 EDT) WBC 6.92 4.00 - 12.40 K/cmm 02/14/2020 18:02 [facility] RBC 4.47 3.86 - 5.04 M/cmm 02/14/2020 18:02 [facility] Hemoglobin 15.1 11.6 - 15.2 gm/dL 02/14/2020 18:02 [facility] HCT 44.8(H) 34.9 - 44.4 % 02/14/2020 18:02 [facility] MCV 100(H) 81 - 98 fl 02/14/2020 18:02 [facility] MCH 33.8(H) 26.7 - 33.3 pg 02/14/2020 18:02 [facility] MCHC 33.7 32.1 - 35.9 gm/dL 02/14/2020 18:02 [facility] RDW-CV 13.4 <14.7 % 02/14/2020 18:02 [facility] RDW-SD 49.4 <50.4 fl 02/14/2020 18:02 [facility] PLT 167 141 - 377 K/cmm 02/14/2020 18:02 [facility] MPV 10.6 9.5 - 12.7 fl 02/14/2020 18:02 [facility] % Neutrophils 72.7 % 02/14/2020 18:02 [facility] % Lymphocytes 21.1 % 02/14/2020 18:02 [facility] % Monocytes 3.3 % 02/14/2020 18:02 [facility] % Eosinophils 2.0 % 02/14/2020 18:02 [facility] % Basophils 0.6 % 02/14/2020 18:02 [facility] % Immature Grans 0.3 % 02/14/20 20 18:02 [facility] Absolute Neutrophils 5.03 2.20 - 8.85 K/cmm 02/14/2020 18:02 [facility] Absolute Lymphocytes 1.46 1.09 - 3.30 K/cmm 02/14/2020 18:02 [facility] Absolute Monocytes 0.23 0.10 - 0.80 K/cmm 02/14/2020 18:02 [facility] Absolute Eosinophils 0.14 0.03 - 0.61 K/cmm 02/14/2020 18:02 [facility] ABS Basophils 0.04 0.01 - 0.11 K/cmm 02/14/2020 18:02 [facility] Absolute Immature Grans 0.02 0.00 - 0.06 K/cmm 02/14/2020 18:02 [facility] Type of Differential: Auto 02/14/2020 18:02 [facility] Blood VENOUS BLOOD / Unknown Venipuncture / Unknown 02/14/2020 17:48 EDT 02/14/2020 17:50 EDT us Brayan Plummer MD PACKAGES & DNA PROBE ORDERABLES Final Result [facility] [address] [place] [address] documented in this encounter Visit Diagnoses Diagnosis [...] thrombophlebitis of intracranial venous sinuses Cerebral venous thrombosis Cerebral thrombosis without mention of cerebral infarction Intraparenchymal hemorrhage of brain (HCC-CMS) Intracerebral hemorrhage documented in this encounter Admitting Diagnoses Diagnosis Cerebral venous 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 documented in this encounter Administered Medications Inactive Administered Medications - up to 3 most recent administrations Medication Order MAR Action Action Date Dose Rate Site acetaminophen (TYLENOL) solution unit dose cup 995 mg 995 mg (rounded from 1,000 mg), per ng tube, EVERY 6 HOURS, First dose (after last modification) on [facility] 02/18/20 at 1245, Until Discontinued, Routine Given 03/02/2020 8:21 EDT 995 mg Given 03/01/2020 8:50 EDT 995 mg Given 03/01/2020 1:07 EDT 995 mg acetaminophen (TYLENOL) suppository 975 mg 975 mg (rounded from 1,000 mg), rectal, EVERY 6 HOURS, First dose (after last modification) on [facility] 02/18/20 at 1245, Until Discontinued, Routine acetaminophen (TYLENOL) tablet 1,000 mg 1,000 mg, oral, EVERY 6 HOURS, First dose (after last modification) on [facility] 02/18/20 at 1245, Until Discontinued, Routine Given 03/02/2020 2:29 EDT 1,000 mg Given 03/01/2020 20:13 EDT 1,000 mg Given 03/01/2020 15:12 EDT 1,000 mg amino acids-protein hydrolysate (PRO SOURCE NOCARB) [...] Routine Given 02/22/2020 15:39 EDT 10 mg bupivacaine-EPINEPHrine (PF) 0.5 %-1:200,000 injection As needed, Starting on Sat02/16/20 at 1200, Until Sat02/16/20 at 1359, Routine, Intraprocedure Given 02/16/2020 12:00 EDT 12 mL calcium carbonate (TUMS) 200 mg calcium (500 mg) per chewable tablet tablet,chewable 1 Tab 1 Tablet, oral, 4 TIMES DAILY PRN, Starting on Sat02/24/20 at 1033, Until Sat03/02/20 at 1313, Heartburn, Routine Given 03/02/2020 12:05 EDT 1 Tablet docusate (COLACE) liquid 100 mg 100 mg, oral, 2 TIMES DAILY, First dose on Sat02/17/20 at 2100, Until Discontinued, Routine Given 03/01/2020 20:13 EDT 100 mg Given 03/01/2020 8:50 EDT 100 mg Given 02/29/2020 21:03 EDT 100 mg enoxaparin (LOVENOX) injection 90 mg 90 mg (rounded from 89 mg = 1 mg/kg ? 89 kg), subcutaneous, EVERY 12 HOURS, First dose (after last modification) on Sat03/01/20 at 0900, Until Discontinued, Routine Given 03/02/2020 8:22 EDT 90 mg Given 03/01/2020 20:13 EDT 90 mg Given 03/01/2020 8:51 EDT 90 mg gelatin adsorbable 100 cm sponge As needed, Starting on Sat02/16/20 at 1257, Until Sat02/16/20 at 1359, Intraprocedure Given 02/16/2020 12:57 EDT 1 Ea ch Gelatin Adsorbable powder As needed, Starting on Sat02/16/20 at 1256, Until Sat02/16/20 at 1359, Intraprocedure Given 02/16/2020 12:56 EDT 1,00 0 mg guaiFENesin tablet 200 mg 200 mg, oral, [...] mg Given 03/01/2020 5:50 EDT 4 mg insulin aspart U-100 (NOVOLOG FLEXPEN) injection subcutaneous, AT BEDTIME, First dose on Sat02/22/20 at 2100, Until Discontinued, Routine insulin aspart U-100 (NOVOLOG FLEXPEN) injection subcutaneous, 3 TIMES DAILY WITH MEALS, First dose (after last reorder) on Sat02/23/20 at 0800, Until Discontinued, Routine, Indications: SUPPLEMENTAL INSULINIndications:SUPPLEMENTAL INSULIN lidocaine (XYLOCAINE) 2 % viscous solution 1 dose, Starting on Sat02/16/20 at 2017, Until Sat03/02/20 at 1313 lisinopriL (PRINIVIL) tablet 20 mg 20 mg, oral, DAILY, First dose on Sat02/21/20 at 1645, Until Discontinued, Routine Given 03/02/2020 8:21 EDT 20 mg Given 03/01/2020 8:50 EDT 20 mg Given 02/29/2020 8:45 EDT 20 mg melatonin tablet 3 mg 3 mg, oral, AT BEDTIME, First dose on Sat02/19/20 at 2100, Until Discontinued, Routine Given 03/01/2020 20:13 EDT 3 mg Given 02/29/2020 21:04 EDT 3 mg Given 02/28/2020 20:48 EDT 3 mg metoprolol (LOPRESSOR) tablet 25 mg 25 mg, oral, 2 TIMES DAILY, First dose (after last modification) on Sat02/26/20 at 1430, Until Discontinued, Routine Given 03/02/2020 8:21 EDT 25 mg Given 03/01/2020 20:12 EDT 25 mg Given 03/01/2020 8:50 EDT 25 mg Multivitamins with minerals + ferrous gluconate (CENTRUM) oral solution 15 mL 15 mL, feeding tube, DAILY, First dose on Sat02/16/20 at 1545, Until Discontinued, Routine Given 03/02/2020 8:23 EDT 15 mL Given 03/01/2020 8:50 EDT 15 mL Given 02/29/2020 8:46 EDT 15 mL nicotine (NICODERM CQ) 7 mg/24 hr patch 1 Patch 1 Patch, transdermal, EVERY 24 HOURS, First dose (after last modification) on Sat02/15/20 at 0900, Until Discontinued, Routine Patch Applied 03/02/2020 8:21 EDT 1 Patch Left Ar m Patch Applied 02/28/2020 8:13 EDT 1 Patch Ri ght Arm Patch Applied 02/27/2020 8:59 EDT 1 Patch Ri ght Arm ondansetron (PF) (ZOFRAN) injection 4 mg 4 mg, intravenous, EVERY 4 HOURS PRN, Starting on Sat02/16/20 at 1103, Until Sat03/02/20 at 1313, Nausea, Routine Given 02/20/2020 10:27 EDT 4 mg pantoprazole (PROTONIX) tablet 40 mg 40 mg, oral, DAILY, First dose on Sat02/24/20 at 1100, Until Discontinued, Routine Given 03/02/2020 8:21 EDT 40 mg Given 03/01/2020 8:50 EDT 40 mg Given 02/29/2020 8:45 EDT 40 mg papain-alpha amylase-cellulase (CLOG ZAPPER) 2-5 mL 2-5 mL, feeding tube, PRN, Starting on Sat02/16/20 at 2145, Until Sat03/02/20 at 1313, blocked feeding tube, Routine phenylephrine-lidocaine 0.25 %-3 % (CO-PHENYLCAINE) topical solution [...] mg Given 02/28/2020 20:48 EDT 25 mg senna (SENOKOT) tablet 1 Tab 1 Tablet, oral, 2 TIMES DAILY, First dose on Sat02/18/20 at 0900, Until Discontinued, Routine Given 03/01/2020 20:12 EDT 1 Tablet Given 03/01/2020 8:50 EDT 1 Tablet Given 02/29/2020 21:04 EDT 1 Tablet sodium chloride 0.9 % 1,000 mL with bacitracin 50,000 Units irrigation As needed, Starting on Sat02/16/20 at 1249, Until Sat02/16/20 at 1359, Routine, Intraprocedure Given 02/16/2020 12:50 EDT 1,000 mL Given 02/16/2020 12:49 EDT 1,000 mL Thrombin (Bovine) 5,000 unit topical solution As needed, Starting on Sat02/16/20 at 1257, Until Sat02/16/20 at 1359, Intraprocedure Given 02/16/2020 12:57 EDT 5,000 Units documented in this encounter Discontinued Medications Medication [...] Harrell RN)0821 (See Alternative - Provider: Ebenezer Masters, RN) acetaminophen (TYLENOL) tablet 1,000 mg(Linked Group 1) 1,000 mg, oral, EVERY 6 HOURS, First dose (after last modification) on [place] 02/18/20 at 1245, Until Discontinued, Routine 0109 (See Alternative - Provider: Judith Harrell RN)0651 (See Alternative - Provider: Judith Harrell RN)1402 (See Alternative - Provider: Anjelica Parra RN)2025 (See Alternative - Provider: Judith Harrell RN) 0107 (See Alternative - Provider: Judith Harrell RN)0850 (See Alternative - Provider: Anjelica Parra RN)1512 (Given - Provider: Anjelica Parra RN)2012 (Given - Provider: Judith Harrell RN) 0229 (Given - Provider: Judith Harrell RN)0821 (See [...] on Sat03/01/20 at 0900, Until Discontinued, Routine 08 (Given - Provider: Anjelica Parra RN)2012 (Given - Provider: Judith Harrell RN) 08 (Given - Provider: Ebenezer Masters RN) insulin [...] not met) 0822 (Hold - Provider: Ebenezer Guerrero, RN - Reason: Order parameters not met)1101 [...] Provider: Anjelica Parra RN)1402 (Given - Provider: Anejlica Parra RN)1730 (Given - Provider: Anjelica Parra RN) pantoprazole (PROTONIX) tablet 40 mg 40 mg, oral, DAILY, First dose on Sat02/24/20 at 1100, Until Discontinued, Routine 0845 (Given - Provider: Anjelica Parra RN) 0850 (Given - Provider: Anjelica Parra RN) 0821 (Given - Provider: Ebenezer Masters RN) phenylephrine-lidocain e 0.25 %-3 % (CO-PHENYLCAINE) topical solution 5 mL 5 mL, topical, Once (Without Time Specified), 1 dose, Starting on Sat02/16/20 at 1623, Until Sat03/02/20 at 1313, Routine QUEtiapine (SEROQUEL) tablet 25 mg 25 mg, oral, AT BEDTIME, First dose on Sat02/24/20 at 2100, Until Discontinued, Routine 210 (Given - Provider: Judith Harrell RN) 2012 (Given - Provider: Judith Harrell RN) senna (SENOKOT) tablet 1 Tab 1 Tablet, oral, 2 TIMES DAILY, First dose on Sat02/18/20 at 0900, Until Discontinued, Routine 0845 (Given - Provider: Anjelica Parra RN)210 (Given - Provider: Judith Harrell RN) 0850 (Given - Provider: Anjelica Parra RN)2011 (Given - Provider: Judith Harrell RN) 0811 (Hold - Provider: Ebenezer Masters RN - [...] Anjelica Parra RN)2025 (Given - Provider: Judith Harrell RN) 0106 (Given - Provider: Judith Harrell RN)0550 (Given - Provider: Judith Harrell RN)1827 (Given - Provider: Anjelica Parra RN) 0228 (Given - Provider: Judith Harrell RN) ondansetron (PF) (ZOFRAN) injection 4 mg 4 [...] HOURS, First dose (after last modification) on [facility] 02/18/20 at 1245, Until Discontinued, Routine Or acetaminophen (TYLENOL) solution unit dose cup 995 mgJump to med 995 mg (rounded from 1,000 mg), per ng tube, EVERY 6 HOURS, First dose (after last modification) on [facility] 02/18/20 at 1245, Until Discontinued, Routine Or acetaminophen (TYLENOL) suppository 975 mgJump to med 975 mg (rounded from 1,000 mg), rectal, EVERY 6 HOURS, First dose (after last modification) on [facility] 02/18/20 at 1245, Until Discontinued, Routine documented in this encounter Orders Medications Ordered That Babak ht Not Have Been Administered Count Last Ordered Date First Ordered Date enoxaparin (LOVENOX) injection 50 mg 1 04/2020 enoxaparin (LOVENOX) injection 90 mg 3 04/2020 guaiFENesin tablet 200 mg 1 02/26/2020 metoprolol (LOPRESSOR) tablet 25 mg 2 02/25 iohexoL (OMNIPAQUE 350) solution 100 mL 5 0 02/25/2020 02/14/2020 calcium carbonate (TUMS) 200 mg calcium (500 mg) per chewable tablet tablet,chewable 1 Tab 1 02/24/2020 pantoprazole (PROTONIX) tablet 40 mg 2 11/201902/16/2020 QUEtiapine (SEROQUEL) tablet 25 mg 1 2019 hydrALAzine (APRESOLINE) 10 mg in sodium chloride (NS) 0.9 % 50 mL IVPB 3 02/23/2020 0 hydrALAzine (APRESOLINE) injection 10 mg 3 02/22/2020 02/16/2020 insulin aspart U-100 (NOVOLO G FLEXPEN) injection 4 02/22/2020 02/14/2020 labetaloL (TRANDATE) injection 20 mg 2 03/ 02/18/2020 nutren 1.5 liquid 250 mL 1 02/22/2020 sodium chloride 3 % infusion 7 02/22/2020 02/17/2020 lisinopriL (PRINIVIL) tablet 20 mg 1 2019 potassium chloride (KLOR-CON ) packet 20 mEq 1 02/21/2020 enoxaparin (LOVENOX) injection 40 mg 1 01/24 aspirin chewable tablet 81 mg 1 02/19/2020 dextrose 5 % and 0.9 % NaCl with KCl 20 mEq/L infusion 1 02/19/2020 HYDROmorphone (DILAUDID) tablet 2-4 mg 1 melatonin tablet 3 mg 1 02/19/2020 potassium chloride (KLOR-CON ) packet 40 mEq 7 02/19/2020 02/17/2020 acetaminophen (TYLENOL) solu tion unit dose cup 995 mg 1 02/18/2020 acetaminophen (TYLENOL) suppository 975 mg 1 02/18/2020 acetaminophen (TYLENOL) tablet 1,000 mg 1 0 02/18/2020 dexMEDEtomidine in 0.9 % NaC L (PRECEDEX) 400 mcg/100 mL infusion 1 02/18/2020 heparin injection 5,000 Units 3 02/18/2020 02/17/2020 HYDROmorphone (DILAUDID) tablet 2 mg 2 01/2402/16/2020 HYDROmorphone (PF) (DILAUDID ) 0.5 mg/0.5 mL syringe 0.2 mg 1 02/18/2020 metoprolol (LOPRESSOR) 5 mg in sodium chloride (NS) 0.9 % 50 mL IVPB 1 02/18/2020 metoprolol (LOPRESSOR) injection 5 mg 1 midazolam (PF) (VERSED) 1 mg/mL injection 1 02/18/2020 midazolam (PF) (VERSED) injection 2 mg 1 morphine injection 2 mg 4 02/18/2020 03/12/2019 propOFol (DIPRIVAN) 1000 mg in 100 mL infusion 2 02/18/2020 02/16/2020 rocuronium (ZEMURON) injection 100 mg 1 amino acids-protein hydrolys ate (PRO SOURCE NOCARB) packet 60 mL 2 02/17/2020 02/16/2020 docusate (COLACE) liquid 100 mg 1 0 impact peptide 1.5 0.09 gram- 1.5 kcal/mL 1 02/17/2020 magnesium sulfate 2g in D5W 50 ml 1 020 potassium chloride in water infusion 20 mEq 1 02/17/2020 sodium acetate 513 mEq/L 1 02/17/2020 acetaminophen (TYLENOL) solu tion unit dose cup 650 mg 1 02/16/2020 acetaminophen (TYLENOL) suppository 650 mg 1 02/16/2020 acetaminophen (TYLENOL) tablet 650 mg 2 02/15/2020 bisacodyL (DULCOLAX) suppository 10 mg 1 docusate sodium (COLACE) capsule 100 mg 1 0 02/16/2020 etomidate (AMIDATE) injection 49.2 mg 1 levETIRAcetam (KEPPRA) 500 m g in sodium chloride (NS) 0.9 % 100 mL IVPB 1 02/16/2020 levETIRAcetam (KEPPRA) tablet 500 mg 1 01/24 lidocaine (XYLOCAINE) 2 % viscous solution 1 02/16/2020 mannitol 25 % injection 2 02/16/2020 mannitol 25 % injection 50 g 1 02/16/2020 Multivitamins with minerals + ferrous gluconate (CENTRUM) oral solution 15 mL 1 02/16/2020 niCARdipine (CARDENE) 25 mg in sodium chloride (NS) 0.9 % 250 mL peripheral infusion 2 02/16/2020 02/14/2020 NORepinephrine (LEVOPHED) in D5W 32 mcg/ml 250 ml 8 mg/250 mL (32 mcg/mL) infusion solution 1 02/16/2020 ondansetron (PF) (ZOFRAN) injection 4 mg 1 02/16/2020 pantoprazole (PROTONIX) injection 40 mg 1 0 02/16/2020 papain-alpha amylase-cellula se (CLOG ZAPPER) 2-5 mL 2 02/16/2020 peptamen 1.5 40 mL 1 02/16/2020 peptamen AF 1 02/16/2020 phenylephrine-lidocaine 0.25 %-3 % (CO-PHENYLCAINE) topical solution 5 mL 1 02/16/2020 propOFol (DIPRIVAN) 10 mg/mL injection 1 protamine injection 40 mg 1 02/16/2020 rocuronium (ZEMURON) 10 mg/mL injection 1 0 02/16/2020 rocuronium (ZEMURON) injection 49.2 mg 1 senna (SENOKOT) tablet 1 Tab 1 02/16/2020 sodium chloride 0.9 % BOLUS 1,000 mL 1 01/24 sodium chloride 0.9 % BOLUS 500 mL 2 2019 sodium chloride 0.9 % with K Cl 20 mEq/L infusion 1 02/16/2020 sodium chloride 3% BOLUS 250 mL 1 0 sodium chloride 3% BOLUS 500 mL 1 0 labetaloL (TRANDATE) injection 10 mg 2 01/2402/14/2020 nicotine (NICODERM CQ) 7 mg/ 24 hr patch 1 Patch 2 02/15/2020 02/14/2020 ondansetron (PF) (ZOFRAN) 4 mg/2 mL injection 1 02/15/2020 prochlorperazine edisylate ( COMPAZINE) 10 mg/2 mL (5 mg/mL) injection 1 02/15/2020 prochlorperazine edisylate ( COMPAZINE) injection 10 mg 1 02/15/2020 sodium chloride 0.9 % (NS) infusion 1 02/14 acetaminophen (OFIRMEV) IV s olution 1,000 mg 1 02/14/2020 dextrose 50 % solution 12.5 g 1 02/14/2020 fentaNYL citrate (PF) injection 100 mcg 3 0 02/14/2020 glucagon injection 1 mg 1 02/14/2020 heparin in 11/26 NS 25,000 uni t/250 mL infusion 1 02/14/2020 labetaloL (TRANDATE) 10 mg i n dextrose 5% (D5W) 50 mL IVPB 1 02/14/2020 morphine injection 4 mg 1 02/14/2020 Nursing Count Last Ordered Date First Orde red Date ACTIVITY INSTRUCTIONS 1 03/02/2020 DRIVING INSTRUCTIONS 1 03/02/2020 WOUND CARE INSTRUCTIONS 1 03/02/2020 REYES CATHETER - DISCONTINUE 1 02/24/2020 NOTIFY LAND ACQUISITION SPECIALIST 1 02/22/2020 CHECK HEMOVAC DRAIN 1 02/19/2020 NURSING COMMUNICATION 2 02/18/20202019 REMOVE ARTERIAL LINE 1 02/17/2020 CONTRAINDICATION TO ANTICOAG ULATION THERAPY 1 02/16/2020 INSERT SMALL BORE FEEDING TUBE 1 02/16/2020 INTAKE AND OUTPUT 1 02/16/2020 CHARGING BOARD OPERATOR,CLASS II 2 02/16/2020 0 02/14/2020 VTE PHARMACOLOGIC [...] 02/17/2020 documented in this encounter Care Teams Shellfish Processing Laborer Relationship Specialty Start Date End Date Alejandrina Carrillo PA-C [address] [place] [address] PCP - General 04/07/19 07/05/20 documented as of this encounter
--- OUTSIDE RECORDS SUMMARY | 2024-12-03 16:07 | XMS_ITS | Encounter Summary ---
Author Organization [facility] Address [address] [place] [address] Care Team Providers Care Community Midwife Name Role Phone Marci Nolasco MD Primary Care Provider [phone] Encounter Details Date Type Department Care Team (Latest Contact Info) Description 08/03/2015 9:32 EDT - 08/03/2015 23:59 EDT Hospital Encounter [address] [address] Unknown, Provider, MD Discharge Disposition: Home or [...] Code Departure Means Destination Home or Self Shelter documented in this encounter Plan of Treatment Upcoming Encounters Date Type Department Care Team (Late st Contact Info) Description 03/04/2025 14:00 EDT Telemedicine [facility] Neurology Clinic [address] [place], [place] [address] Brayan Polk MD [address] [facility] [address] [place] [address] 07/14/2025 14:30 EDT Office Visit [facility] Cancer Center Hematology & Oncology - [address] [address] Evin Maria MD 111 [facility], [facility], [address] [place] [address] documented as of this encounter Visit Diagnoses Not on filedocumented in this encounter Care Teams Community Midwife Relationship Specialty Start Date End Date Marci Nolasco MD [address] [place] [phone] PCP - General 06/10/09 04/06/19 documented as of this encounter
--- OUTSIDE RECORDS SUMMARY | 2024-12-03 16:07 | XMS_ITS | Encounter Summary ---
Author Organization [facility] Address [address] [place] [address] Care Team Providers Care Brick Offbearer Name Role Phone Marci Nolasco MD Primary Care Provider [phone] Alejandrina Carrillo PA-C Primary Care Provider [phone] Encounter Details Date Type Department Care Team (Late st Contact Info) Description 09/02/2018 Historical Results Only [facility] Radiology Results [address] [place], [place] [id number] Michell Mujica PA-C [address] [facility] [address] [place] [address] Social History Tobacco Use Types Packs/Day Years [...] Telemedicine [facility] Neurology Clinic [address] [place] [address] Brayan Polk MD 130 [facility] [address] [place] [address] 07/14/2025 14:30 EDT Office Visit [facility] Cancer Center Hematology & Oncology - [address] [place] [address] [place], [place] [phone] Evin Maria MD 111 [facility], [address] [place] [phone] documented as of this encounter Procedures Procedure Name Priority Date/Time Associated Diagnosis Comments US EXTREMITY 09/02/2018 16:31 EDT XR ANKLE LEFT 3 OR MORE VIEWS 09/02/2018 9:42 EDT documented in this encounter Results * US EXTREMITY (09/02/2018 16:31 EDT) Anatomical Region Laterality Modality Other 09/02/2018 16:3 1 EDT Narrative 09/02/2018 16:31 EDT ? EXAM: ULTRASOUND/DOPPLER VEIN EXTREMITY L EX. D/ (1559) ? CLINICAL INFORMATION: ? LEFT CALF PAIN AND SWELLING ? EXAM: ? US Duplex Left Lower Extremity Veins ? CLINICAL HISTORY: ? 48 years old, female; Signs and symptoms; Swelling of limb; ? Lower extremity, left; Additional info: Left calf pain and ? swelling ? TECHNIQUE: ? Real-time duplex ultrasound scan of the left lower extremity ? veins integrating B-mode two-dimensional vascular structure, ? Doppler spectral analysis, color flow Doppler imaging and ? compression. ? COMPARISON: ? No relevant prior studies available. ? FINDINGS: ? Deep veins: ?? No DVT in the visualized common femoral, ? femoral, posterior tibial, peroneal or popliteal veins. ??The ? veins demonstrate normal color flow, are normally compressible, ? with normal phasic flow and/or augmentation response. ? Superficial veins: ?? No thrombus in the visualized great ? saphenous vein. ? Soft tissues: ??No popliteal cyst. ? IMPRESSION: No evidence of a deep vein thrombosis. ? REPORT SIGNED IN OTHER VENDOR SYSTEM 09/02/2018 ?Reported By: Aníbal Hester MD ? CC: Michell Mujica ? Transcribed Date/Time: 09/02/2018 (5691) ? Fireworks Display Specialist: ? Printed Date/Time: 05/16/2019 (9602) ? PAGE 1 ? Signed Report ? Procedure Note Aníbal Hester MD - 10/01/2019 EXAM: ULTRASOUND/DOPPLER VEIN EXTREMITY L EX. D/ (9433) CLINICAL INFORMATION: LEFT CALF PAIN AND SWELLING EXAM: US Duplex Left Lower Extremity Veins CLINICAL HISTORY: 48 years old, female; Signs and symptoms; Swelling of limb; Lower extremity, left; Additional info: Left calf pain and swelling TECHNIQUE: Real-time duplex ultrasound scan of the left lower extremity veins integrating B-mode two-dimensional vascular structure, Doppler spectral analysis, color flow Doppler imaging and compression. COMPARISON: No relevant prior studies available. FINDINGS: Deep veins: No DVT in the visualized common femoral, femoral, posterior tibial, peroneal or popliteal veins. The veins demonstrate normal color flow, are normally compressible, with normal phasic flow and/or augmentation response. Superficial veins: No thrombus in the visualized great saphenous vein. Soft tissues: No popliteal cyst. IMPRESSION: No evidence of a deep vein thrombosis. REPORT SIGNED IN OTHER VENDOR SYSTEM 09/02/2018 Reported By: Aníbal Hester MD CC: Michell Mujica Transcribed Date/Time: 09/02/2018 (6691) Fireworks Display Specialist: Printed Date/Time: 05/16/2019 (1665) PAGE 1 Signed Report us Michell Mujica PA-C IMSuzanne ORDERABLES Fi nal Result * XR ANKLE LEFT 3 OR MORE VIEWS (09/02/2018 9:42 EDT) Anatomical Region Laterality Modality Lower Extremities, Ankle Left Other 09/02/2018 9:42 EDT Narrative 09/02/2018 9:45 EDT ? EXAM: RADIOLOGY/ANKLE LEFT 3+VIEW ? EX. D/ (0904) ? CLINICAL INFORMATION: ? CLOSED FRACTURE OF DISTAL END OF LEFT FIBULA S82.832A ? ANKLE LEFT 3+VIEW ? Signs and Symptoms/Comments: ??CLOSED FRACTURE OF DISTAL END OF LEFT ? FIBULA S82.832A ? Comparison: 09/02/2018 ? FINDINGS: ? Left ankle: 3 views were performed. An oblique fracture of the distal ? fibular metaphysis is again identified. Mild lateral displacement is ? similar to 08/26/2018, with associated mild widening of the lateral ? clear space on the mortise view. As of yet, there is no significant ? radiographic evidence of healing. Mild degenerative changes are ? present in the ankle and hindfoot. The lateral soft tissues remain ? swollen. ? IMPRESSION: ? Mildly displaced distal fibular fracture. Alignment unchanged. As of ? yet, no significant radiographic evidence of healing. ? REPORT SIGNED IN OTHER VENDOR SYSTEM 09/02/2018 ?Reported By: Sherman Marie MD ? CC: ? Transcribed Date/Time: 09/02/2018 (944) ? Fireworks Display Specialist: ? Printed Date/Time: 05/16/2019 (9252) ? PAGE 1 ? Signed Report ? Procedure Note Sherman Marie MD - 10/01/2019 EXAM: RADIOLOGY/ANKLE LEFT 3+VIEW EX. D/ (903) CLINICAL INFORMATION: CLOSED FRACTURE OF DISTAL END OF LEFT FIBULA S82.832A ANKLE LEFT 3+VIEW Signs and Symptoms/Comments: CLOSED FRACTURE OF DISTAL END OF LEFT FIBULA S82.832A Comparison: 09/02/2018 FINDINGS: Left ankle: 3 views were performed. An oblique fracture of thedistal fibular metaphysis is again identified. Mild lateral displacementis similar to 08/26/2018, with associated mild widening of the lateral clear space on the mortise view. As of yet, there is no significant radiographic evidence of healing. Mild degenerative changes are present in the ankle and hindfoot. The lateral soft tissues remain swollen. IMPRESSION: Mildly displaced distal fibular fracture. Alignment unchanged. Asof yet, no significant radiographic evidence of healing. REPORT SIGNED IN OTHER VENDOR SYSTEM 09/02/2018 Reported By: Sherman Marie MD CC: Transcribed Date/Time: 09/02/2018 (944) Fireworks Display Specialist: Printed Date/Time: 05/16/2019 (9619) PAGE 1 Signed Report Michell Mujica PA-C IMSuzanne DIAGNOSTIC IMAGI NG ORDERABLES Final Result documented in this encounter Visit Diagnoses Not on filedocumented in this encounter Care Teams Brick Offbearer Relationship Specialty Start Date End Date Marci Nolasco MD [address] [place] [phone] PCP - General 06/10/09 04/06/19 Alejandrina Carrillo PA-C [address] [place] [address] PCP - General 04/07/19 07/05/20 documented as of this encounter
--- OUTSIDE RECORDS SUMMARY | 2024-12-03 16:07 | XMS_ITS | Encounter Summary ---
Author Organization [facility] Address [address] [place] [address] Care Team Providers Care Rn Transition Name Role Phone Unavailable Primary Care Provider Unavailabl e Encounter Details Date Type Department Care Team (Latest Contact Info) Description 10/15/2006 10:28 EST - 10/15/2006 11:59 EST Hospital Encounter [address] [address] Aníbal Payton MD Discharge Disposition: Auto Discharge Social History Tobacco Use Types Packs/Day Years Used Date Smoking Tobacco: Never Assessed Comments Unknown Sex and Gender Information Value Date Recorded Sex Assigned at Not on file Legal Sex Female 17:42 EST Gender Identity Female 03/18/2020 17:54 EDT Sexual Orientation Not on file documented as of this encounter Discharge Disposition Disposition Code Departure Means Destination Auto Discharge documented in this encounter Plan of Treatment Upcoming Encounters Date Type Department Care Team (Late st Contact Info) Description 03/04/2025 14:00 EDT Telemedicine [facility] Neurology Clinic [address] [place] [address] Brayan Polk MD 130 [facility] [address] [place] [address] 07/14/2025 14:30 EDT Office Visit [facility] Cancer Center Hematology & Oncology - [address] [phone] Evin Maria MD 111 [facility], [facility], [address] [place] [address] documented as of this encounter Visit Diagnoses Not on filedocumented in this encounter
--- OUTSIDE RECORDS SUMMARY | 2024-12-03 16:07 | XMS_ITS | Encounter Summary ---
Author Organization [facility] Address [address] [place] [address] Care Team Providers Care Instructional Resource Teacher Name Role Phone Marci Nolasco MD Primary Care Provider [phone] Alejandrina Carrillo PA-C Primary Care Provider [phone] Encounter Details Date Type Department Care Team (Late st Contact Info) Description 09/23/2018 Historical Results Only [facility] Radiology Results [address] [place], [place] [phone] Michell Mujica PA-C [address] [facility] [address] [place] [address] Social History Tobacco Use Types [...] Contact Info) Description 03/04/2025 14:00 EDT Telemedicine [facility] Neurology Clinic [address] [place] [address] Brayan Polk MD 130 [facility] [address] [place] [address] 07/14/2025 14:30 EDT Office Visit [facility] Cancer Center Hematology & Oncology - [address] [place] [address] [place], [place] [phone] Evin Maria MD [address] [place], [address] [place] [address] documented as of this encounter Procedures Procedure Name Priority Date/Time Associated Diagnosis Comments XR ANKLE LEFT 3 OR MORE VIEWS 09/23/2018 9:03 EDT documented in this encounter Results * XR ANKLE LEFT 3 OR MORE VIEWS (09/23/2018 9:03 EDT) Anatomical Region Laterality Modality Lower Extremities, Ankle Left Other 09/23/2018 9:03 EDT Narrative 09/23/2018 9:06 EDT ? EXAM: RADIOLOGY/ANKLE LEFT 3+VIEW ? EX. D/ (0816) ? CLINICAL INFORMATION: ? OTHER CLOSED FRACTURE OF DISTAL END OF LEFT FIBULA S82.832D ? INDICATION: OTHER CLOSED FRACTURE OF DISTAL END OF LEFT FIBULA ? S82.832D LEFT ANKLE FRACTURE ? TECHNIQUE: 3 views of the left ankle. ? COMPARISON: 09/02/2018. ? FINDINGS: ? There is a mildly displaced oblique fracture of the distal fibula. ? The position and alignment are unchanged. There is slight periosteal ? reaction surrounding the fracture margins. The ankle mortise does not ? appear widened. No osteochondral lesion of the talar dome is ? detected. ? The joint spaces are preserved. ? IMPRESSION: ? Mildly displaced distal fibular fracture. Alignment unchanged. Early ? healing present. ? REPORT SIGNED IN OTHER VENDOR SYSTEM 09/23/2018 ?Reported By: Alexis Mix MD ? CC: ? Transcribed Date/Time: 09/23/2018 (905) ? Ent Surgeon: ? Printed Date/Time: 05/16/2019 (8525) ? PAGE 1 ? Signed Report ? Procedure Note Alexis Mix MD - 10/01/2019 EXAM: RADIOLOGY/ANKLE LEFT 3+VIEW EX. D/ (815) CLINICAL INFORMATION: OTHER CLOSED FRACTURE OF DISTAL END OF LEFT FIBULA S82.832D INDICATION: OTHER CLOSED FRACTURE OF DISTAL END OF LEFT FIBULA S82.832D LEFT ANKLE FRACTURE TECHNIQUE: 3 views of the left ankle. COMPARISON: 09/02/2018. FINDINGS: There is a mildly displaced oblique fracture of the distal fibula. The position and alignment are unchanged. There is slightperiosteal reaction surrounding the fracture margins. The ankle mortise doesnot appear widened. No osteochondral lesion of the talar dome is detected. The joint spaces are preserved. IMPRESSION: Mildly displaced distal fibular fracture. Alignment unchanged.Early healing present. REPORT SIGNED IN OTHER VENDOR SYSTEM 09/23/2018 Reported By: Alexis Mix MD CC: Transcribed Date/Time: 09/23/2018 (905) Ent Surgeon: Printed Date/Time: 05/16/2019 (5374) PAGE 1 Signed Report Michell Mujica PA-C IMSuzanne DIAGNOSTIC IMAGI NG ORDERABLES Final Result documented in this encounter Visit Diagnoses Not on filedocumented in this encounter Care Teams Instructional Resource Teacher Relationship Specialty Start Date End Date Marci Nolasco MD [address] [place] [phone] PCP - General 06/10/09 04/06/19 Alejandrina Carrillo PA-C [address] [place] [address] PCP - General 04/07/19 07/05/20 documented as of this encounter
--- OUTSIDE RECORDS SUMMARY | 2024-12-03 16:07 | XMS_ITS | Encounter Summary ---
Author Organization [facility] Address [address] [place] [address] Care Team Providers Care Trial Management Associate Name Role Phone Marci Nolasco MD Primary Care Provider [phone] Alejandrina Carrillo PA-C Primary Care Provider [phone] Encounter Details Date Type Department Care Team (Late st Contact Info) Description 12/12/2016 Historical Results Only [facility] - [address] [phone] Uzma Dupree MD [address] [place] [address], [address] [place] [address] Social History Tobacco Use Types [...] 14:00 EDT Telemedicine [facility] [address] [place] [phone] Brayan Polk MD [address] [place] [address] [address] [place] [address] 07/14/2025 14:30 EDT Office Visit [facility] Hematology & Oncology - [facility] [address] [place], [place] [phone] Evin Maria MD 111 [facility], [facility], Level 2 [place] [phone] documented as of this encounter Procedures Procedure Name Priority Date/Time Associated Diagnosis Comments FSH Routine 12/12/2016 14:31 EST documented in this encounter Results * FSH (12/12/2016 14:31 EST) FSH 120.59 mIU/mL 12/12/2016 16:13 EST [facility] Comment: RESULT COMMENTS/INTERPRETATION OF RESULTS Follicular Phase: ??2.5 ??- 10.2 mIU/mL Midcycle Phase: ?3.4 ??- 33.4 mIU/mL Luteal phase: ?1.5 ??- 9.1 ??mIU/mL : ?<0.3 mIU/mL Postmenopausal: ?23.0 - 116.3 mIU/mL 12/12/2016 14:3 1 EST 12/12/2016 14:31 EST Narrative [facility] - 12/12/2016 16:13 EST Does PT Have a Latex Allergy? NO us Uzma Dupree MD CHEMISTRY & BLOOD GAS ORDERABLE S Final Result [facility] documented in this encounter Visit Diagnoses Not on filedocumented in this encounter Care Teams Trial Management Associate Relationship Specialty Start Date End Date Marci Nolasco MD [address] [place] [phone] PCP - General 06/10/09 04/06/19 Alejandrina Carrillo PA-C [address] [place] [address] PCP - General 04/07/19 07/05/20 documented as of this encounter
--- OUTSIDE RECORDS SUMMARY | 2024-12-03 16:07 | XMS_ITS | Encounter Summary ---
Author Organization [facility] Address [address] [place] [address] Care Team Providers Care Editor Farm Journal Name Role Phone Marci Nolasco MD Primary Care Provider Alejandrina Carrillo PA-C Primary Care Provider [phone] Encounter Details Date Type Department Care Team (Late st Contact Info) Description 01/05/2013 Historical Results Only [facility] - Main [address] [address] Opal Hidalgo MD [address] [place] [phone] Social History Tobacco Use Types Packs/Day Years [...] Description 03/04/2025 14:00 EDT Telemedicine [facility] [address] [place] [address] Brayan Polk MD [address] [place] [address]- [address] [place] [address] 07/14/2025 14:30 EDT Office Visit [facility] Hematology & Oncology - [facility] [address] [place] [address] Evin Maria MD 111 [facility], [facility] Level 2 [place] [address] documented as of this encounter Procedures Procedure Name Priority Date/Time Associated Diagnosis Comments SURGICAL PATHOLOGY Routine 01/05/2013 12 :00 EST documented in this encounter Results * SURGICAL PATHOLOGY (01/05/2013 12:00 EST) 01/05/2013 12:0 0 EST 01/06/2013 13:54 EST Narrative [facility] - 01/07/2013 15:33 EST ----- ------- Name: NAPOLEON WHITE ? : 66 ?Age/Sex: 49/F ?Unit#: [id number] ? Loc: [facility] ? Status: REG REF ?? Reg Date: 01/05/13 ? Pt.Phone Number: ? ----- ------- Specimen: [id number] ?STATUS: SOUT ?Spec Date:01/05/13 ? Physician Copies: ?Opal Hidalgo ? Tissues: A ?? Female Reproductive System (ENDOCERVIX) ?Marci Nolasco MD CPT: 71644 ?? Units: ??1 ?FINAL DIAGNOSIS ? Endocervix, curettage; ? - Scant benign endocervical glandular epithelium with abundant mucus. ----- ------- ?COMMENT ? The atypical cells seen in the referring Pap ([id number]) are not represented in the ECC. ? GROSS DESCRIPTION ? Received in formalin and labeled Napoelon White is a brush containing 0.5 x ? 0.5 x 0.3 cm aggregate of mucinous material. ??Submitted in one cassette. ??KD ?? PREOP DX/CLINICAL HISTORY ?ASCUS + HPV pap 11/03/12 Signed ____(signature on file)____ Linnette Gonsales M.D. 01/07/13 By the signature above, the attending physician certifies that he/she has personally conducted a gross and/or microscopic examination of the described specimens and rendered or confirmed the above diagnosis. Test Performed by [facility], [address] [facility] [address] Body Shop Estimator: Linnette Gonsales MD PHD ----- ------- us Opal Hidalgo MD PATHOLOGY ORDERABLES Final Resul t [facility] documented in this encounter Visit Diagnoses Not on filedocumented in this encounter Care Teams Editor Farm Journal Relationship Specialty Start Date End Date Marci Nolasco MD [address] [place] [phone] PCP - General 06/10/09 04/06/19 Alejandrina Carrillo PA-C [address] [place] [address] PCP - General 04/07/19 07/05/20 documented as of this encounter
--- OUTSIDE RECORDS SUMMARY | 2024-12-03 16:07 | XMS_ITS | Encounter Summary ---
Author Organization [facility] Address [address] [place] [address] Care Team Providers Care Fiscal Assistant Name Role Phone Marci Nolasco MD Primary Care Provider [phone] Alejandrina Carrillo PA-C Primary Care Provider [phone] Encounter Details Date Type Department Care Team (Late st Contact Info) Description 12/11/2018 Historical Results Only [facility] Radiology Results [address] [place], [place] [phone] Alida Miles PA-C 13[address] [facility] [address] [place], [place] [phone] Social History Tobacco Use Types Packs/Day Years [...] Telemedicine [facility] Neurology Clinic [address] [place], [place] [address] Brayan Polk MD 130 [facility]- [address] [place] [address] 07/14/2025 14:30 EDT Office Visit [facility] Hematology & Oncology - Main [place] [address] [place], [place] [phone] Evin Maria MD 111 [facility], [facility], Level 2 [place] [address] documented as of this encounter Procedures Procedure Name Priority Date/Time Associated Diagnosis Comments INFLUENZA A B RSV - CV Routine 12/11/2018 10:42 EST XR CHEST 2 VIEWS 12/11/2018 10:3 0 EST documented in this encounter Results * INFLUENCA A B RSV - [facility] (12/11/2018 10:42 EST) INFLUENZA A PCR - [facility] Positive 12/11/2018 14:32 EST [facility] Comment: Result called to JEF CASTILLO AT [facility] 12/11/18 1432: Result called by TRELL Influenza A virus RNA detected by nucleic acid amplification with real-time PCR. INFLUENZA B PCR - CV Negative 12/11/2018 14:32 EST [facility] RSV PCR - CV Negative 12/11/2018 14:32 EST [facility] 12/11/2018 10:4 2 EST 12/11/2018 13:22 EST us Alida Miles PA-C CHEMISTRY & BLOOD GAS O RDERABLES Final Result [facility] * XR CHEST 2 VIEWS (12/11/2018 10:30 EST) Anatomical Region Laterality Modality Other 12/11/2018 10:3 0 EST Narrative 12/11/2018 10:33 EST ? EXAM: RADIOLOGY [facility] JUAN PABLO EX. D/ (1018) ? CLINICAL INFORMATION: ? R05 COUGH. COUGH WORSENING, FEVER. ? INDICATION: R05 COUGH. COUGH WORSENING, FEVER.. ? COMPARISON: Chest x-ray 08/03/2015. ? TECHNIQUE: 2 views of the chest were obtained. ? FINDINGS: ? Multifocal faint patchy densities in the right lung base consistent ? with pneumonia in the proper clinical setting. Follow-up radiographs ? recommended in 6-8 weeks to document resolution. The left lung is ? clear. The cardiomediastinal silhouette and pulmonary vessels are ? normal. ? IMPRESSION: Right lower lobe patchy densities consistent with ? pneumonia in the proper clinical setting. Follow-up radiographs ? recommended in 6-8 weeks to document resolution. ? This report has been flagged for a noncritical result requiring ? follow-up on the [employer] PACS findings application, to be tracked by ? the [facility] tracking system. ? REPORT SIGNED IN OTHER VENDOR SYSTEM 12/11/2018 ?Reported By: Iron Romero MD ? CC: ? Transcribed Date/Time: 12/11/2018 (1033) ? Debone Supervisor: ? Printed Date/Time: 05/17/2019 (1229) ? PAGE 1 ? Signed Report ? Procedure Note Iron Romero MD - 10/01/2019 EXAM: RADIOLOGY [facility] JUAN PABLO EX. D/ (1018) CLINICAL INFORMATION: R05 COUGH. COUGH WORSENING, FEVER. INDICATION: R05 COUGH. COUGH WORSENING, FEVER.. COMPARISON: Chest x-ray 08/03/2015. TECHNIQUE: 2 views of the chest were obtained. FINDINGS: Multifocal faint patchy densities in the right lung base consistent with pneumonia in the proper clinical setting. Follow-upradiographs recommended in 6-8 weeks to document resolution. The left lung is clear. The cardiomediastinal silhouette and pulmonary vessels are normal. IMPRESSION: Right lower lobe patchy densities consistent with pneumonia in the proper clinical setting. Follow-up radiographs recommended in 6-8 weeks to document resolution. This report has been flagged for a noncritical result requiring follow-up on the [employer] PACS findings application, to be tracked by the [facility] tracking system. REPORT SIGNED IN OTHER VENDOR SYSTEM 12/11/2018 Reported By: Iron Romero MD CC: Transcribed Date/Time: 12/11/2018 (2693) Debone Supervisor: Printed Date/Time: 05/17/2019 (8612) PAGE 1 Signed Report Alida Miles PA-C IMSuzanne DIAGNOSTIC IMAGING ORDERABLES Final Result documented in this encounter Visit Diagnoses Not on filedocumented in this encounter Care Teams Fiscal Assistant Relationship Specialty Start Date End Date Marci Nolasco MD [address] [place] [phone] PCP - General 06/10/09 04/06/19 Alejandrina Carrillo PA-C [address] [place] [address] PCP - General 04/07/19 07/05/20 documented as of this encounter
--- OUTSIDE RECORDS SUMMARY | 2024-12-03 16:07 | XMS_ITS | Encounter Summary ---
Author Organization [facility] Address [address] [place] [address] Care Team Providers Care Java Scala Developer Name Role Phone Marci Nolasco MD Primary Care Provider [phone] Encounter Details Date Type Department Care Team (Latest Contact Info) Description 06/27/2009 15:45 EDT - 06/27/2009 23:59 EDT Hospital Encounter [facility] [phone] Unknown, Provider, MD Discharge Disposition: Auto Discharge Social History Tobacco Use Types Packs/Day Years Used Date Smoking Tobacco: Never Assessed Comments Unknown Sex and Gender Information Value Date Recorded Sex Assigned at Not on file Legal Sex Female 17:42 EST Gender Identity Female 03/18/2020 17:54 EDT Sexual Orientation Not on file documented as of this encounter Discharge Disposition Disposition Code Departure Means Destination Auto Discharge Home documented in this encounter Plan of Treatment Upcoming Encounters Date Type Department Care Team (Late st Contact Info) Description 03/04/2025 14:00 EDT Telemedicine [facility] - [facility] Neurology Clinic [address] [place] [address] Brayan Polk MD 130 [facility] [address] [place] [address] 07/14/2025 14:30 EDT Office Visit [facility] Hematology & Oncology - [address] [phone] Evin Maria MD [address] [facility], [facility], Level 2 [place] [address] documented as of this encounter Procedures Procedure Name Priority Date/Time Associated Diagnosis Comments MM DIGITAL MAMMO SCREEN THIERNO W CAD* 06/27/2009 18:57 EDT documented in this encounter Results * MM DIGITAL MAMMO SCREEN THIERNO W CAD* (06/27/2009 18:57 EDT) Anatomical Region Laterality Modality Other 06/27/2009 18:5 7 EDT 07/20/2009 14:45 EDT Narrative 07/20/2009 14:45 EDT This report has been dictated at [facility]. ??If you would like a copy of this report, please call . Procedure Note 07/20/2009 This report has been dictated at [facility]. If you would like a copy of this report, please call . us Marci Nolasco MD IMG NM ORDERABLES Final Result documented in this encounter Visit Diagnoses Not on filedocumented in this encounter Care Teams Java Scala Developer Relationship Specialty Start Date End Date Marci Nolasco MD [address] [place] [phone] PCP - General 06/10/09 04/06/19 documented as of this encounter
--- OUTSIDE RECORDS SUMMARY | 2024-12-03 16:07 | XMS_ITS | Encounter Summary ---
Author Organization [facility] Address [address] [place] [address] Care Team Providers Care Copy Worker Name Role Phone Marci Nolasco MD Primary Care Provider [phone] Alejandrina Carrillo PA-C Primary Care Provider [phone] Encounter Details Date Type Department Care Team (Late st Contact Info) Description 04/16/2014 Historical Results Only [facility] - Main [address] [phone] Anum Benavides, [facility] [address] [place] [address],[facility] [address] [place], [place] [phone] Social History Tobacco Use Types Packs/Day Years [...] Info) Description 03/04/2025 14:00 EDT Telemedicine [facility] Clinic [address] [place], [place] [address] Brayan Polk MD 130 [facility] [address] [place] [address] 07/14/2025 14:30 EDT Office Visit [facility] Center Hematology & Oncology - [facility] [address] [place], [place] [phone] Evin Maria MD 111 [facility], [facility], Level 2 [place] [address] documented as of this encounter Procedures Procedure Name Priority Date/Time Associated Diagnosis Comments PAP TEST Routine 04/16/2014 9:57 EDT documented in this encounter Results * PAP TEST (04/16/2014 9:57 EDT) 04/16/2014 9:57 EDT 04/20/2014 9:57 EDT [facility] - 04/23/2014 8:28 EDT ----- ------- Name: NAPOLEON WHITE ? : 66 ?Age/Sex: 49/F ?Unit#: [id number] ? Loc: AGO ? Status: REG POV ?? Reg Date: 04/16/14 ? Pt.Phone Number: ? ----- ------- Specimen: [id number] ?STATUS: SOUT ?Spec Date:04/16/14 ? Physician Copies: ?Anum Benavides Tissues: ? Cervical/Endo Pap ?AMY DIAZ CPT: 48372 ?? Units: ??1 ----- ------- ? CYTOLOGY DIAGNOSIS SPECIMEN ADEQUACY: ?Satisfactory for evaluation. Transformation zone component present. GENERAL CATEGORIZATION: ?Negative for Intraepithelial Lesion or Malignancy DESCRIPTIVE DIAGNOSIS: ? Negative for Intraepithelial Lesion or Malignancy. ----- ------- ?HPV DNA RESULTS ?? 04/16/14 1607 HPV DNA RESULT ??NEG ? Negative for HPV types 16, 18, 31, 33, 35, 39, 45, 51, 52, ? 56, 58, 59, 66, 68. ? Method: Cervista HPV HR (High Risk) DNA test. ----- ------- ORDER QUERIES: LMP: 03/31/14- ? N Post ? N ??PREVIOUS ATYPICAL: Y BCP/HRT? Y Rad Rx? N IUD? N ??PAP PLUS HPV? Y ??REFLEX TO HR-HPV IF ASCUS N REFLEX TO HPV 16/18 IF HPV POS/PAP NEG N HPV REGARDLESS? Y ??RFLX HPV IF LSIL ?? Signed Zay Hwang CT(ASCP) 04/23/14 By the signature above, the attending physician certifies that he/she has personally conducted a gross and/or microscopic examination of the described specimens and rendered or confirmed the above diagnosis. Test Performed by [facility], [address] [place] [address] Turpentine Farmer: Linnette Gonsales MD PHD ----- ------- us Anum Benavides [facility] PATHOLOGY ORDERABLES Fi nal Result [facility] documented in this encounter Visit Diagnoses Not on filedocumented in this encounter Care Teams Copy Worker Relationship Specialty Start Date End Date Marci Nolasco MD [address] [place] [phone] PCP - General 06/10/09 04/06/19 Alejandrina Carrillo PA-C [address] [place] [address] PCP - General 04/07/19 07/05/20 documented as of this encounter
--- OUTSIDE RECORDS SUMMARY | 2024-12-03 16:07 | XMS_ITS | Encounter Summary ---
Author Organization [facility] Address [address] [place] [address] Care Team Providers Care Spout Liner Name Role Phone Marci Nolasco MD Primary Care Provider [phone] Alejandrina Carrillo PA-C Primary Care Provider [phone] Encounter Details Date Type Department Care Team (Late st Contact Info) Description 10/30/2018 Historical Results Only [facility] Radiology Results [address] [place], [place] [phone] Anushka Bella PA-C [address] [place] [phone] Social History Tobacco Use Types Packs/Day Years [...] [facility] [address] [place] [address] Brayan Polk MD 130 [facility] [address] [place] [address] 07/14/2025 14:30 EDT Office Visit [facility] Cancer Center Hematology & Oncology - Main [place] [address] [place] [address] Evin Maria MD 111 [facility], Level 2 [place] [address] documented as of this encounter Procedures Procedure Name Priority Date/Time Associated Diagnosis Comments XR ANKLE LEFT 3 OR MORE VIEWS 10/30/2018 13:24 EST documented in this encounter Results * XR ANKLE LEFT 3 OR MORE VIEWS (10/30/2018 13:24 EST) Anatomical Region Laterality Modality Lower Extremities, Ankle Left Other 10/30/2018 13:2 4 EST Narrative 10/30/2018 13:27 EST ? EXAM: RADIOLOGY/ANKLE LEFT 3+VIEW ? EX. D/ (1316) ? CLINICAL INFORMATION: ? S82.832 D ,CLOSED FRACTURE OF DISTAL END OF LEFT FIBULA WITH ROUTINE ? HEALING ? ANKLE LEFT 3+VIEW ? Signs and Symptoms/Comments: ??S82.832 D CLOSED FRACTURE OF DISTAL END ? OF LEFT FIBULA WITH ROUTINE HEALING ? Comparison: 09/23/2018, 09/02/2018. ? FINDINGS: ? Left ankle: 3 views were performed. A mildly displaced oblique ? fracture of the distal fibular metaphysis is again identified. The ? alignment is unchanged including mild widening of the lateral clear ? space at the ankle mortise. There is possible early evidence of ? healing, although the fracture lucency remains clearly visible. Mild ? degenerative changes are present in the ankle. The soft tissues ? remain mildly swollen. ? IMPRESSION: ? Incompletely healed distal fibular fracture. Alignment unchanged. ? REPORT SIGNED IN OTHER VENDOR SYSTEM 10/30/2018 ?Reported By: Sherman Marie MD ? CC: Anushka Bella PA-C ? Transcribed Date/Time: 10/30/2018 (1327) ? Stitching Machine Feeder Or Offbearer: ? Printed Date/Time: 05/17/2019 (8497) ? PAGE 1 ? Signed Report ? Procedure Note Sherman Marie MD - 10/01/2019 EXAM: RADIOLOGY/ANKLE LEFT 3+VIEW EX. D/ (1316) CLINICAL INFORMATION: S82.832 D ,CLOSED FRACTURE OF DISTAL END OF LEFT FIBULA WITHROUTINE HEALING ANKLE LEFT 3+VIEW Signs and Symptoms/Comments: S82.832 D CLOSED FRACTURE OF DISTALEND OF LEFT FIBULA WITH ROUTINE HEALING Comparison: 09/23/2018, 09/02/2018. FINDINGS: Left ankle: 3 views were performed. A mildly displaced oblique fracture of the distal fibular metaphysis is again identified. The alignment is unchanged including mild widening of the lateral clear space at the ankle mortise. There is possible early evidence of healing, although the fracture lucency remains clearly visible.Mild degenerative changes are present in the ankle. The soft tissues remain mildly swollen. IMPRESSION: Incompletely healed distal fibular fracture. Alignment unchanged. REPORT SIGNED IN OTHER VENDOR SYSTEM 10/30/2018 Reported By: Sherman Marie MD CC: Anushka Bella PA-C Transcribed Date/Time: 10/30/2018 (1327) Stitching Machine Feeder Or Offbearer: Printed Date/Time: 05/17/2019 (6800) PAGE 1 Signed Report Anushka Bella PA-C IMG DIAGNOSTIC IMAGING ORDERABLES Final Result documented in this encounter Visit Diagnoses Not on filedocumented in this encounter Care Teams Spout Liner Relationship Specialty Start Date End Date Marci Nolasco MD [address] [place] [phone] PCP - General 06/10/09 04/06/19 Alejandrina Carrillo PA-C [address] [place] [phone] PCP - General 04/07/19 07/05/20 documented as of this encounter
--- OUTSIDE RECORDS SUMMARY | 2024-12-03 16:07 | XMS_ITS | Encounter Summary ---
Author Organization [facility] Address [address] [place] [address] Care Team Providers Care Health And Safety Inspector Name Role Phone Marci Nolasco MD Primary Care Provider [phone] Encounter Details Date Type Department Care Team (Latest Contact Info) Description 08/26/2018 13:32 EDT - 08/26/2018 23:59 EDT Hospital Encounter [address] [address] Unknown, Provider, MD Discharge Disposition: Home or [...] or Self [facility] documented in this encounter Plan of Treatment Upcoming Encounters Date Type Department Care Team (Late st Contact Info) Description 03/04/2025 14:00 EDT Telemedicine [facility] Neurology Clinic [address] [place], [place] [address] Brayan Polk MD 130 [facility] [address] [place] [address] 07/14/2025 14:30 EDT Office Visit [facility] Hematology & Oncology - [address] [address] Evin Maria MD 111 [facility], [facility], Level [address] [place] [address] documented as of this encounter Visit Diagnoses Not on filedocumented in this encounter Care Teams Health And Safety Inspector Relationship Specialty Start Date End Date Marci Nolasco MD [address] [place] [phone] PCP - General 06/10/09 04/06/19 documented as of this encounter
--- OUTSIDE RECORDS SUMMARY | 2024-12-03 16:07 | XMS_ITS | Encounter Summary ---
Author Organization [facility] Address [address] [place] [address] Care Team Providers Care Chute Puller Name Role Phone Marci Nolasco MD Primary Care Provider [phone] Alejandrina Carrillo PA-C Primary Care Provider [phone] Encounter Details Date Type Department Care Team (Late st Contact Info) Description 12/12/2018 Historical Results Only [facility] - Main [place] [address] [place] [address] Alida Miles PA-C [address] [facility] [address] [place], [place] [phone] Social History Tobacco Use Types Packs/Day Years [...] [facility] Neurology Clinic [address] [place], [place] [address] Brayan Polk MD [address] [facility] [address] [place] [address] 07/14/2025 14:30 EDT Office Visit [facility] Hematology & Oncology - [facility] [address] [place], [place] [phone] Evin Maria MD 111 [facility], [facility], Level 2 [place] [phone] documented as of this encounter Procedures Procedure Name Priority Date/Time Associated Diagnosis Comments TEST [place] [facility] Routine 12/12/2018 12:00 EST documented in this encounter Results * TEST CANCELLED [place] [facility] (12/12/2018 12:00 EST) TEST CANCELLED - [facility] SEE NOTE 12/12/2018 16:23 EST [facility] Comment: The following test(s) have been cancelled: TEST: ??C. DIFF. REASON FOR CANCELLATION: ??PRESERVED SPECIMEN REC'D OFFICE/MD NOTIFIED ??[facility] 12/12/2018 12:0 0 EST 12/12/2018 16:09 EST us Alida Miles PA-C CHEMISTRY & BLOOD GAS O RDERABLES Final Result [facility] documented in this encounter Visit Diagnoses Not on filedocumented in this encounter Care Teams Chute Puller Relationship Specialty Start Date End Date Marci Nolasco MD [address] [place] [phone] PCP - General 06/10/09 04/06/19 Alejandrina Carrillo PA-C [address] [place] [address] PCP - General 04/07/19 07/05/20 documented as of this encounter
--- OUTSIDE RECORDS SUMMARY | 2024-12-03 16:07 | XMS_ITS | Encounter Summary ---
Author Organization [facility] Address [address] [place] [address] Care Team Providers Care Intervention Analyst Name Role Phone Unavailable Primary Care Provider Unavailabl e Encounter Details Date Type Department Care Team (Latest Contact Info) Description 05/07/2001 11:31 EDT - 05/07/2001 11:59 EDT Hospital Encounter [facility] - Other [address] [place] [address] Mayuri Fletcher, JESSICA [address] [facility] [address] [place] [address] Unknown, Provider, Discharge Disposition: Auto Discharge Social History Tobacco [...] 03/04/2025 14:00 EDT [facility] Neurology Clinic [address] [place] [address] Brayan Polk MD 130 [facility] [address] [place] [address] 07/14/2025 14:30 EDT Office Visit [facility] Hematology & Oncology - Main [place] [address] [place], [place] [phone] Evin Maria MD [address] [facility] 2 [place] [phone] documented as of this encounter Procedures Procedure Name Priority Date/Time Associated Diagnosis Comments N.GONORRHOEAE PROBE Routine 05/07/2001 1 1:00 EDT CHLAMYDIA TRACHOMATIS PROBE Routine 05/07/2001 11:00 EDT HEMAGRAM & DIFF Routine 05/07/2001 11:00 EDT QUANT BETA HCG, Routine 05/07/2001 11:00 EDT HEPATIC FUNCTION PANEL (ALB,ALK PHOS,ALT,AST,DBIL,TO T THIERNO,TOT PROT) Routine 05/07/2001 11:00 EDT documented in this encounter Results * N.GONORRHOEAE PROBE (05/07/2001 11:00 EDT) Specimen Description Cervix [facility] Result No Neisseria gonorrhoeae DNA detected by gun striper mediated amplification. [facility] Report Status Final [id number] [facility] 05/07/2001 11:0 0 EDT 05/07/2001 13:45 EDT us Mayuri Fletcher NP HISTORICAL LAB FOR SQ LOAD Final Result [facility] [address] [place] [address] * CHLAMYDIA TRACHOMATIS PROBE (05/07/2001 11:00 EDT) Specimen Description Cervix [facility] Result No Chlamydia trachomatis DNA detected by gun striper mediated amplification. [facility] Report Status Final [id number] [facility] 05/07/2001 11:0 0 EDT 05/07/2001 13:45 EDT us Mayuri Fletcher NP HISTORICAL LAB FOR SQ LOAD Final Result Performing Organization Address [facility] Co de Phone Number [facility] [address] [place] [address] * LIVER FUNCTION TESTS (05/07/2001 11:00 EDT) Pathologist [facility] Albumin 3.9 3.0 - 5.5 g/dl [facility] Total Protein 7.1 6.0 - 8.5 g/dl [facility] Total Alkaline Phosphatase 60 38 - 126 U/L [facility] ALT 17 15 - 75 U/L [facility] AST 15 8 - 50 U/L [facility] Unconjugated Bilirubin 0.3 0.1 - 1.1 mg/dl [facility] Conjugated Bilirubin 0.0 0.0 - 0.3 mg/dl [facility] Bilirubin, Total 0.3 0.2 - 1.3 mg/dl [facility] 05/07/2001 11:0 0 EDT 05/07/2001 12:49 EDT us Mayuri Fletcher CHARGE NURSE CHEMISTRY & BLOOD GAS ORDER [place] Final Result Performing Organization Address [facility] de Phone Number [facility] [address] [place] [address] * HCG (05/07/2001 11:00 EDT) [facility] HCG <4 mIU/ml [facility] Comment: <4 = Negative 4-10 = Borderline, recommend repeat. 05/07/2001 11:0 0 EDT 05/07/2001 12:49 EDT Mayuri Fletcher CHARGE NURSE CHEMISTRY & BLOOD GAS ORDER [place] Final Result Performing Organization Address [facility] Co de Phone Number [facility] [address] [place] [address] * HEMAGRAM & DIFF (05/07/2001 11:00 EDT) [facility] WBC 7.21 4.0 - 12.4 K/cmm [facility] RBC 4.41 3.86 - 5.04 M/cmm [facility] Hemoglobin 13.1 11.6 - 15.2 gm/dl [facility] HCT 38.4 34.9 - 44.4 % [facility] MCV 87 81 - 98 fl [facility] MCH 29.6 26.7 - 33.3 pg [facility] MCHC 34.0 32.1 - 35.9 gm/dl [facility] PLT 243 141 - 320 K/cmm [facility] RDW-CV 12.8 11.7 - 14.6 % [facility] % Neutrophils 53.4 45.5 - 79.7 % [facility] % Lymphocytes 40.0 15.0 - 46.8 % [facility] % Monocytes 3.2 1.8 - 12.0 % [facility] % Eosinophils 3.0 0.6 - 6.9 % [facility] % Basophils 0.4 0.2 - 1.4 % [facility] ABS Neutrophils 3.84 2.20 - 8.85 K/cmm [facility] ABS Lymphs 2.88 1.09 - 3.30 K/cmm [facility] ABS Monocytes 0.23 0.1 - 0.8 K/cmm [facility] ABS Eosinophils 0.22 0.03 - 0.61 K/cmm [facility] ABS Basophils 0.03 0.01 - 0.11 K/cmm [facility] Type of Diff: Automated [facility] 05/07/2001 11:0 0 EDT 05/07/2001 12:49 EDT us Mayuri Fletcher NP HISTORICAL LAB FOR SQ LOAD Final Result [facility] [address] [place] [address] documented in this encounter Visit Diagnoses Not on filedocumented in this encounter
--- OUTSIDE RECORDS SUMMARY | 2024-12-03 16:07 | XMS_ITS | Encounter Summary ---
Author Organization [facility] Address [address] [place] [address] Care Team Providers Care Sports Book Writer Name Role Phone Marci Nolasco MD Primary Care Provider [phone] Alejandrina Carrillo PA-C Primary Care Provider [phone] Encounter Details Date Type Department Care Team (Late st Contact Info) Description 12/13/2018 Historical Results Only [facility] - Main [place] [address] [place] [address] Alida Miles PA-C [address] [facility] [address] [place], [place] [phone] Social History Tobacco Use Types Packs/Day Years [...] Telemedicine [facility] Neurology Clinic [address] [place], [place] [address] Brayan Polk MD 130 [facility] [address] [place] [address] 07/14/2025 14:30 EDT Office Visit [facility] Hematology & Oncology - [facility] [address] [place], [place] [phone] Evin Maria MD 111 [facility], [facility], Level 2 [place] [phone] documented as of this encounter Procedures Procedure Name Priority Date/Time Associated Diagnosis Comments C. DIFFICILE PCR Routine 12/13/2018 6:00 EST documented in this encounter Results * C. DIFFICILE PCR (12/13/2018 6:00 EST) C. difficile PCR Neg 12/13/2018 10:36 EST [facility] 027,NAP1,BI STRAIN - [facility] Neg 12/13/2018 10:36 EST [facility] Comment:Presumptive negative for 027, NAP1, BI strain. 12/13/2018 6:00 EST 12/13/2018 8:58 EST us Alida Miles PA-C MICROBIOLOGY - GENERAL ORDERABLES Final Result [facility] documented in this encounter Visit Diagnoses Not on filedocumented in this encounter Care Teams Sports Book Writer Relationship Specialty Start Date End Date Marci Nolasco MD [address] [place] [phone] PCP - General 06/10/09 04/06/19 Alejandrina Carrillo PA-C [address] [place] [address] PCP - General 04/07/19 07/05/20 documented as of this encounter
--- OUTSIDE RECORDS SUMMARY | 2024-12-03 16:07 | XMS_ITS | Encounter Summary ---
Author Organization [facility] Address [address] [place] [address] Care Team Providers Care City Letter Carrier Name Role Phone Marci Nolasco MD Primary Care Provider [phone] Alejandrina Carrillo PA-C Primary Care Provider [phone] Encounter Details Date Type Department Care Team (Late st Contact Info) Description 08/26/2018 Historical Results Only [facility] Radiology Results [address] [place], [place] [address] Kayley Leyva PA-C [address] [facility] [address] [place], [place] [phone] Social History Tobacco Use Types Packs/Day Years [...] Contact Info) Description 03/04/2025 14:00 EDT Telemedicine [facility] Neurology Clinic [address] [place], [place] [phone] Brayan Polk MD [address] [facility] [address] [place] [address] 07/14/2025 14:30 EDT Office Visit [facility] Hematology & Oncology - Main [place] [address] [place], [place] [address] Evin Maria MD 111 [facility], Level [address] [place] [address] documented as of this encounter Procedures Procedure Name Priority Date/Time Associated Diagnosis Comments XR ANKLE LEFT 3 OR MORE VIEWS 08/26/2018 9:43 EDT documented in this encounter Results * XR ANKLE LEFT 3 OR MORE VIEWS (08/26/2018 9:43 EDT) Anatomical Region Laterality Modality Lower Extremities, Ankle Left Other 08/26/2018 9:43 EDT Narrative 08/26/2018 9:47 EDT ? EXAM: RADIOLOGY EXPRESS CARE/EXP CARE ANK EX. D/ (0934) ? CLINICAL INFORMATION: ? M25.572, LEFT ANKLE PAIN, LATERAL MALLEOLUS. ? INDICATION: M25.572, LEFT ANKLE PAIN, LATERAL MALLEOLUS. 08/25 FALL ? LEFT ANKLE INJURY ? TECHNIQUE: 3 views of the left ankle. ? COMPARISON: None. ? FINDINGS: ? There is a minimally displaced oblique fracture of the distal fibula. ? The medial clear space appears slightly widened. No additional ? fracture is detected. ? No osteochondral lesion of the talar dome is identified. The joint ? spaces appear preserved. ? IMPRESSION: ? Minimally displaced oblique distal fibular fracture. Borderline ? widening of the medial clear space. ? REPORT SIGNED IN OTHER VENDOR SYSTEM 08/26/2018 ?Reported By: Alexis Mix MD ? CC: ? Transcribed Date/Time: 08/26/2018 (0947) ? Check Services Clerk: ? Printed Date/Time: 05/16/2019 (9481) ? PAGE 1 ? Signed Report ? Procedure Note Alexis Mix MD - 10/01/2019 EXAM: RADIOLOGY EXPRESS CARE/EXP CARE ANK EX. D/ (0934) CLINICAL INFORMATION: M25.572, LEFT ANKLE PAIN, LATERAL MALLEOLUS. INDICATION: M25.572, LEFT ANKLE PAIN, LATERAL MALLEOLUS. 08/25 FALL LEFT ANKLE INJURY TECHNIQUE: 3 views of the left ankle. COMPARISON: None. FINDINGS: There is a minimally displaced oblique fracture of the distalfibula. The medial clear space appears slightly widened. No additional fracture is detected. No osteochondral lesion of the talar dome is identified. The joint spaces appear preserved. IMPRESSION: Minimally displaced oblique distal fibular fracture. Borderline widening of the medial clear space. REPORT SIGNED IN OTHER VENDOR SYSTEM 08/26/2018 Reported By: Alexis Mix MD CC: Transcribed Date/Time: 08/26/2018 (0947) Check Services Clerk: Printed Date/Time: 05/16/2019 (8186) PAGE 1 Signed Report Kayley Leyva PA-C IMG DIAGNOSTIC IMAGING ORDERA BLES Final Result documented in this encounter Visit Diagnoses Not on filedocumented in this encounter Care Teams City Letter Carrier Relationship Specialty Start Date End Date Marci Nolasco MD [address] [place] [phone] PCP - General 06/10/09 04/06/19 Alejandrina Carrillo PA-C [address] [place] [phone] PCP - General 04/07/19 07/05/20 documented as of this encounter
--- OUTSIDE RECORDS SUMMARY | 2024-12-03 16:07 | XMS_ITS | Encounter Summary ---
Author Organization [facility] Address [address] [place] [address] Care Team Providers Care Bindery Assistant Name Role Phone Unavailable Primary Care Provider Unavailabl e Encounter Details Date Type Department Care Team (Latest Contact Info) Description 08/13/2001 10:49 EDT - 08/13/2001 11:59 EDT Hospital Encounter [address] [address] Oxana Lowery MD [address] [place] [phone] Discharge Disposition: Auto Discharge Social History Tobacco [...] Contact Info) Description 03/04/2025 14:00 EDT Telemedicine [facility] Neurology Clinic [address] [place] [address] Brayan Polk MD 130 [facility] [address] [place] [address] 07/14/2025 14:30 EDT Office Visit [facility] Hematology & Oncology - [address] [phone] Evin Maria MD [address] [facility] [address] [place] [phone] documented as of this encounter Procedures Procedure Name Priority Date/Time Associated Diagnosis Comments CHEST PA AND LATERAL Routine 08/13/2001 16:50 EDT THYROID CASCADE Routine 08/13/2001 16:30 EDT COMPLETE BLOOD COUNT Routine 08/13/2001 16:30 EDT BASIC METABOLIC PANEL (BMP) Routine 08/13/2001 16:30 EDT documented in this encounter Results * CHEST PA AND LATERAL (08/13/2001 16:50 EDT) Anatomical Region Laterality Modality Other 08/13/2001 16:5 0 EDT Impressions 10/05/2009 3:27 EST IMPRESSION: Normal chest radiograph. D: 08-18-01 T: 08-19-01 dmf Narrative 10/05/2009 3:27 EST 15 POUND WEIGHT LOSS, SMOKER, COUGH R/O MASS PA AND LATERAL OF THE CHEST: 08-13-01, 16:45 HISTORY: 15 lbs. weight loss, smoker, cough. Rule out mass. FINDINGS: The costophrenic angles are sharp, and the lungs are clear, and the cardiac silhouette is normal. The pulmonary vasculature is also normal. There are no bony or soft tissue abnormalities. Procedure Note Toni Reyes MD / Zackery Mcfarlane MD - 10/05/2009 15 POUND WEIGHT LOSS, SMOKER, COUGH R/O MASS PA AND LATERAL OF THE CHEST: 08-13-01, 16:45 HISTORY: 15 lbs. weight loss, smoker, cough. Rule out mass. FINDINGS: The costophrenic angles are sharp, and the lungs are clear, and the cardiac silhouette is normal. The pulmonary vasculature is also normal. There are no bony or soft tissue abnormalities. IMPRESSION IMPRESSION: Normal chest radiograph. D: 08-18-01 T: 08-19-01 dmf Oxana Lowery MD IMG DIAGNOSTIC IMAGING ORDERABL ES Final Result * THYROID CASCADE (08/13/2001 16:30 EDT) TSH 0.44 0.35 - 5.50 uIU/ml [facility] Comment: TSH cascade is not recommended for patients in which pituitary or hypothalamic disorders are suspected. 08/13/2001 16:3 0 EDT 08/13/2001 21:28 EDT Oxana Lowery MD CHEMISTRY & BLOOD GAS ORDERABLE S Final Result Performing Organization Address [facility] Co de Phone Number [facility] [address] [place] [address] * HEMAGRAM (08/13/2001 16:30 EDT) WBC 6.44 4.0 - 12.4 K/cmm [facility] RBC 4.25 3.86 - 5.04 M/cmm [facility] Hemoglobin 12.8 11.6 - 15.2 gm/dl [facility] HCT 38.2 34.9 - 44.4 % [facility] MCV 90 81 - 98 fl [facility] MCH 30.2 26.7 - 33.3 pg [facility] MCHC 33.6 32.1 - 35.9 gm/dl [facility] PLT 227 141 - 320 K/cmm [facility] RDW-CV 12.8 11.7 - 14.6 % [facility] 08/13/2001 16:3 0 EDT 08/13/2001 21:28 EDT Oxana Lowery MD HEMATOLOGY & PF4 ORDERABLES Fin al Result Performing Organization Address [facility] Co de Phone Number [facility] [address] [place] [address] * BASIC METABOLIC PANEL (08/13/2001 16:30 EDT) Sodium 138 136 - 145 mEq/L [facility] Potassium 4.4 3.5 - 5.0 mEq/L [facility] Chloride 101 96 - 110 mEq/L [facility] CO2 28 24 - 30 mEq/L [facility] BUN 12 10 - 26 mg/dl [facility] Creatinine 0.7 0.7 - 1.5 mg/dl [facility] Calcium 8.8 8.5 - 10.5 mg/dl [facility] Calculated Calcium 9.2 8.5 - 10.5 mg/dl [facility] Glucose, Serum 75 70 - 110 mg/dl [facility] 08/13/2001 16:3 0 EDT 08/13/2001 21:28 EDT us Oxana Lowery MD CHEMISTRY & BLOOD GAS ORDERABLE S Final Result [facility] [address] [place] [address] documented in this encounter Visit Diagnoses Not on filedocumented in this encounter
--- OUTSIDE RECORDS SUMMARY | 2024-12-03 16:07 | XMS_ITS | Encounter Summary ---
Author Organization [facility] Address [address] [place] [address] Care Team Providers Care Energy Trading Analyst Name Role Phone Marci Nolasco MD Primary Care Provider [phone] Alejandrina Carrillo PA-C Primary Care Provider [phone] Encounter Details Date Type Department Care Team (Late st Contact Info) Description 12/22/2018 Historical Results Only [facility] Radiology Results [address] [place], [place] [phone] Damon Sanches MD [address] [facility] [address] [place], [place] [phone] Social History Tobacco Use Types Packs/Day Years [...] Info) Description 03/04/2025 14:00 EDT Telemedicine [facility] Neurology Clinic [address] [place] [address] Brayan Polk MD 130 [facility] [address] [place] [address] 07/14/2025 14:30 EDT Office Visit [facility] Cancer Center Hematology & Oncology - [facility] [address] [place], [place] [phone] Evin Maria MD 111 [facility], [address] [place] [phone] documented as of this encounter Procedures Procedure Name Priority Date/Time Associated Diagnosis Comments XR ANKLE LEFT 3 OR MORE VIEWS 12/22/2018 14:03 EST documented in this encounter Results * XR ANKLE LEFT 3 OR MORE VIEWS (12/22/2018 14:03 EST) Anatomical Region Laterality Modality Lower Extremities, Ankle Left Other 12/22/2018 14:0 3 EST Narrative 12/22/2018 14:07 EST ? EXAM: RADIOLOGY/ANKLE LEFT 3+VIEW ? EX. D/ (1116) ? CLINICAL INFORMATION: ? CLOSED FRACTURE OF DISTAL END OF LEFT FIBULA S82.832A ? INDICATION: CLOSED FRACTURE OF DISTAL END OF LEFT FIBULA S82.832A ? LEFT ANKLE FX DISCUSS SURGERY ? TECHNIQUE: 3 views of the left ankle. ? COMPARISON: None. ? FINDINGS: There is a healing, minimally displaced fracture of the ? distal fibula. The position and alignment are unchanged. No new ? osseous abnormality is detected. The ankle mortise does not appear ? widened. No osteochondral lesion of the talar dome is detected. The ? joint spaces are preserved. ? IMPRESSION: ? Healing distal fibular fracture. ? REPORT SIGNED IN OTHER VENDOR SYSTEM 12/22/2018 ?Reported By: Alexis Mix MD ? CC: ? Transcribed Date/Time: 12/22/2018 (1407) ? Electric Meter Tester: ? Printed Date/Time: 05/17/2019 (3700) ? PAGE 1 ? Signed Report ? Procedure Note Alexis Mix MD - 10/01/2019 EXAM: RADIOLOGY/ANKLE LEFT 3+VIEW EX. D/ (1116) CLINICAL INFORMATION: CLOSED FRACTURE OF DISTAL END OF LEFT FIBULA S82.832A INDICATION: CLOSED FRACTURE OF DISTAL END OF LEFT FIBULA S82.832A LEFT ANKLE FX DISCUSS SURGERY TECHNIQUE: 3 views of the left ankle. COMPARISON: None. FINDINGS: There is a healing, minimally displaced fracture of the distal fibula. The position and alignment are unchanged. No new osseous abnormality is detected. The ankle mortise does not appear widened. No osteochondral lesion of the talar dome is detected. The joint spaces are preserved. IMPRESSION: Healing distal fibular fracture. REPORT SIGNED IN OTHER VENDOR SYSTEM 12/22/2018 Reported By: Alexis Mix MD CC: Transcribed Date/Time: 12/22/2018 (1402) Electric Meter Tester: Printed Date/Time: 05/17/2019 (6934) PAGE 1 Signed Report Damon Sanches MD IMG DIAGNOSTIC IMAGING ORDERABLE S Final Result documented in this encounter Visit Diagnoses Not on filedocumented in this encounter Care Teams Energy Trading Analyst Relationship Specialty Start Date End Date Marci Nolasco MD [address] [place] [phone] PCP - General 06/10/09 04/06/19 Alejandrina Carrillo PA-C [address] [place] [address] PCP - General 04/07/19 07/05/20 documented as of this encounter
--- OUTSIDE RECORDS SUMMARY | 2024-12-03 16:07 | XMS_ITS | Encounter Summary ---
Author Organization Health system Address [address] [place] [address] Care Team Providers Care Dye Range Operator Name Role Phone Unavailable Primary Care Provider Unavailabl e Encounter Details Date Type Department Care Team (Late st Contact Info) Description 09/21/1999 18:04 EDT Hospital Encounter [address] [id number] Kain Lechuga DDS [address] [place] [address] [address] [place] [address] Discharge Disposition: Auto Discharge Social History Tobacco [...] Info) Description 03/04/2025 14:00 EDT Telemedicine [facility] [address] [place], [place] [phone] Brayan Polk MD 130 [facility] [address] [place] [address] 07/14/2025 14:30 EDT Office Visit [facility] Hematology & Oncology - [address] [phone] Evin Maria MD 111 [facility] 2 [place] [address] documented as of this encounter Procedures Procedure Name Priority Date/Time Associated Diagnosis Comments MR TMJ BILATERAL Routine 09/21/1999 19:0 7 EDT documented in this encounter Results * MR TMJ BILATERAL (09/21/1999 19:07 EDT) Anatomical Region Laterality Modality Other 09/21/1999 19:0 7 EDT Impressions 10/04/2009 11:26 EST IMPRESSION: Limited examination. This should be repeated at no charge. I do not see any definite abnormal disc displacement or bony or fibrous ankylosis. While the disc is not well seen on either side, I suspect this is normal, but this would be better evaluated with improved technique. Poor motion is seen between open and closed mouth images. /law Narrative 10/04/2009 11:26 EST TMJ PAIN,R/O TMJ DISC DISPLACEMENT MRI OF THE TEMPOROMANDIBULAR JOINT 09/21/1999 TECHNIQUE: MR scan of the temporomandibular joints was performed with sagittal T1, T2, closed mouth, open mouth T1 and coronal T1 closed mouth images. FINDINGS: The scans are a bit limited I believe by technical factors, and while some of this may be due to the patient's past surgery, I would like the patient to return for a repeat study at no charge. The present evaluation does show a somewhat small condyle on the right side, which appears to have abnormal signal. While I do not see any obvious fibrous tissue in the joint and the disc may actually be in a relatively normal position, there is certainly almost no motion between open and closed mouth images. The cause of the abnormal signal in the patient's condyle is presumably degenerative with no obvious bone destruction seen and just some mild irregularity of the cortex. On the left side, there is some irregularity of the condylar head, presumably degenerative. Condylar size and signal I believe is normal. The disc is not well seen, although I believe in normal position. However, as stated, visualization is limited and I would like the patient to return for repeat examination with different technique. On this side, as on the right, there also is relatively little motion between open and closed mouth views. I do not see any obvious bony or fibrous ankylosis. Procedure Note Priyank Storey MD - 10/04/2009 TMJ PAIN,R/O TMJ DISC DISPLACEMENT MRI OF THE TEMPOROMANDIBULAR JOINT 09/21/1999 TECHNIQUE: MR scan of the temporomandibular joints was performed with sagittal T1, T2, closed mouth, open mouth T1 and coronal T1 closed mouth images. FINDINGS: The scans are a bit limited I believe by technical factors, and while some of this may be due to the patient's past surgery, I would like the patient to return for a repeat study at no charge. The present evaluation does show a somewhat small condyle on the right side, which appears to have abnormal signal. While I do not see any obvious fibrous tissue in the joint and the disc may actually be in a relatively normal position, there is certainly almost no motion between open and closed mouth images. The cause of the abnormal signal in the patient's condyle is presumably degenerative with no obvious bone destruction seen and just some mild irregularity of the cortex. On the left side, there is some irregularity of the condylar head, presumably degenerative. Condylar size and signal I believe is normal. The disc is not well seen, although I believe in normal position. However, as stated, visualization is limited and I would like the patient to return for repeat examination with different technique. On this side, as on the right, there also is relatively little motion between open and closed mouth views. I do not see any obvious bony or fibrous ankylosis. IMPRESSION IMPRESSION: Limited examination. This should be repeated at no charge. I do not see any definite abnormal disc displacement or bony or fibrous ankylosis. While the disc is not well seen on either side, I suspect this is normal, but this would be better evaluated with improved technique. Poor motion is seen between open and closed mouth images. /law us Kain Lechuga DDS IMG MRI ORDERABLES Final Res ult documented in this encounter Visit Diagnoses Not on filedocumented in this encounter
--- OUTSIDE RECORDS SUMMARY | 2024-12-03 16:07 | XMS_ITS | Encounter Summary ---
Author Organization [facility] Address [address] [place] [address] Care Team Providers Care Layboy Tender Name Role Phone Karol Dillard MD Primary Care Provider [phone] Encounter Details Date Type Department Care Team (Latest Contact Info) Description 06/09/2009 16:53 EDT - 06/09/2009 23:59 EDT Hospital Encounter [facility] [phone] Unknown, Provider, Discharge Disposition: Auto Discharge Social [...] 03/04/2025 14:00 EDT Telemedicine [facility] Neurology Clinic [address] [place] [address] Brayan Polk MD 130 [facility] [address] [place] [address] 07/14/2025 14:[address] [facility] Hematology & Oncology - [address] [phone] Evin Maria MD 111 [facility], [facility], Level [address] [place] [address] documented as of this encounter Visit Diagnoses Not on filedocumented in this encounter Care Teams Layboy Tender Relationship Specialty Start Date End Date Karol Dillard MD 1 [facility] 1 [place] [address] PCP - General 06/09/09 06/09/09 documented as of this encounter
--- OUTSIDE RECORDS SUMMARY | 2024-12-03 16:07 | XMS_ITS | Encounter Summary ---
Author Organization [facility] Address [address] [place] [address] Care Team Providers Care Route Salesman And Driver Name Role Phone Marci Nolasco MD Primary Care Provider [phone] Alejandrina Carrillo PA-C Primary Care Provider [phone] Encounter Details Date Type Department Care Team (Late st Contact Info) Description 07/13/2013 Historical Results Only [facility] - [address] [address] Marci Nolasco MD [address] [place] [phone] Social History Tobacco Use Types Packs/Day Years [...] [facility] [address] [place] [address] Brayan Polk MD [address] [place] [address]A [address] [place] [address] 07/14/2025 14:30 EDT Office Visit [facility] Hematology & Oncology - [address] [address] Evin Maria MD 111 [facility] Level 2 [place] [phone] documented as of this encounter Procedures Procedure Name Priority Date/Time Associated Diagnosis Comments PAP TEST Routine 07/13/2013 16:16 EDT documented in this encounter Results * PAP TEST (07/13/2013 16:16 EDT) 07/13/2013 16:1 6 EDT 07/14/2013 16:[address] [facility] - 07/17/2013 15:14 EDT ----- ------- Name: NAPOLEON WHITE ? : [birth year] ?Age/Sex: 49/F ?Unit#: [id number] ? Loc: [facility] ? Status: REG REF ?? Reg Date: 07/13/13 ? Pt.Phone Number: ? ----- ------- Specimen: [id number] ?STATUS: SOUT ?Spec Date:07/13/13 ? Physician Copies: ?Marci Nolasco MD Tissues: ? VAG/CERV PAP ? CPT: 39212 ?? Units: ??1 ----- ------- ? CYTOLOGY DIAGNOSIS SPECIMEN ADEQUACY: ?Satisfactory for evaluation. Transformation zone component present. GENERAL CATEGORIZATION: ?Negative for Intraepithelial Lesion or Malignancy DESCRIPTIVE DIAGNOSIS: ? Negative for Intraepithelial Lesion or Malignancy. RECOMMENDATIONS/COMMENTS: ?None. ----- ------- ?HPV DNA RESULTS ?? 07/13/13 0826 HPV DNA RESULT ??NEG ? Negative for HPV types 16, 18, 31, 33, 35, 39, 45, 51, 52, ? 56, 58, 59, 66, 68. ? Method: Cervista HPV HR (High Risk) DNA test. ----- ------- ORDER QUERIES: LMP: ? - ? Post ?PREVIOUS ATYPICAL: ?? BCP/HRT? ?? Rad Rx? ?? IUD?PAP PLUS HPV? Y ??REFLEX TO HR-HPV IF ASCUS ?? REFLEX TO HPV 16/18 IF HPV POS/PAP NEG ?? HPV REGARDLESS?RFLX HPV IF LSIL ?? IF ASCUS DO HPV? Signed Zay Hwang CT(ASCP) 07/17/13 (preliminary) ----- ------- Patient: NAPOLEON WHITE ? #[id number] ? (Continued) ----- ------- Specimen: [id number] ?Received: 07/14/13-1614 ?(Continued) ? Zay Hwang CT([facility]) 07/17/13 By the signature above, the attending physician certifies that he/she has personally conducted a gross and/or microscopic examination of the described specimens and rendered or confirmed the above diagnosis. Test Performed by [facility], [address] [place] [id number] Champagne Maker: Linnette Gonsales MD PHD ----- ------- us Marci Nolasco MD PATHOLOGY ORDERABLES Final Res ult [facility] documented in this encounter Visit Diagnoses Not on filedocumented in this encounter Care Teams Route Salesman And Driver Relationship Specialty Start Date End Date Marci Nolasco MD [address] [place] [phone] PCP - General 06/10/09 04/06/19 Alejandrina Carrillo PA-C [address] [place] [address] PCP - General 04/07/19 07/05/20 documented as of this encounter
--- OUTSIDE RECORDS SUMMARY | 2024-12-03 16:07 | XMS_ITS | Encounter Summary ---
Author Organization [facility] Address [address] [place] [address] Care Team Providers Care Advisor Consultant Name Role Phone Unavailable Primary Care Provider Unavailabl e Encounter Details Date Type Department Care Team (Late st Contact Info) Description 09/27/1999 20:01 EST Hospital Encounter [facility] [address] [place] [address] Kain Lechuga DDS [address] [place] [phone] Social History Tobacco Use Types Packs/Day Years [...] 18:22 EDT documented as of this encounter Plan of Treatment Upcoming Encounters Date Type Department Care Team (Late st Contact Info) Description 03/04/2025 14:00 EDT Telemedicine [facility] Neurology Clinic [address] [place] [address] Brayan Polk MD 130 [facility] [address] [place] [address] 07/14/2025 14:30 EDT Office Visit [facility] Hematology & Oncology - [facility] [address] [place], [place] [address] Evin Maria MD 111 [facility], [facility], Level 2 [place] [address] documented as of this encounter Procedures Procedure Name Priority Date/Time Associated Diagnosis Comments MR TMJ BILATERAL Routine 09/27/1999 20:5 6 EST documented in this encounter Results * MR TMJ BILATERAL (09/27/1999 20:56 EST) Anatomical Region Laterality Modality Other 09/27/1999 20:5 6 EST Impressions 10/04/2009 11:33 EST IMPRESSION: 1. A bit better visualization on this exam than previous, although I do not have those films directly available for the patient. There is again noted to be small condyle on the right with irregular signal. The disc itself I believe may be in a normal position. Minimal movement of the condyle with mouth opening on both sides. On the left side, although the previous exam suggested that the disc is normal in position, this exam does suggest that it is slightly anteriorly displaced. Evaluation of reduction is not truly possible in that the patient's condyle barely moves between open and closed mouth views. Evaluation for fibrous ankylosis is difficult. While the joint space on the left side is somewhat more normal in appearance, on the right side, particularly on the T2 scans, I can barely see a joint space. 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 ; /gm Narrative 10/04/2009 11:33 EST PAIN ON LEFT > RIGHT LIMITED RANGE OF MOTION, ??R/O ??FIBROSIS ANTERI... MRI BILATERAL TMJ: 09/27/99 Additional exam at no charge. DESCRIPTION: Previous study done 09/21 was felt to be somewhat limited and the patient therefore returned. Those films are not available for direct correlation, although report is available. FINDINGS: Scans on the right again show abnormal signal of the condyle. This appears small. The disc itself I believe is in a normal position, a bit more reliably seen that previous exam. There is again noted to be essentially no motion between open and closed mouth views. On the left side, the disc is again hard to delineate. However, I believe this is slightly anteriorly displaced, and does not reduce with mouth opening although the degree of mouth opening as stated is minimal. No other abnormalities. Procedure Note Alsofrdominik, Priyank Rzio MD - 10/04/2009 PAIN ON LEFT > RIGHT LIMITED RANGE OF MOTION, R/O FIBROSIS ANTERI... MRI BILATERAL TMJ: 09/27/99 Additional exam at no charge. DESCRIPTION: Previous study done 09/21 was felt to be somewhat limited and the patient therefore returned. Those films are not available for direct correlation, although report is available. FINDINGS: Scans on the right again show abnormal signal of the condyle. This appears small. The disc itself I believe is in a normal position, a bit more reliably seen that previous exam. There is again noted to be essentially no motion between open and closed mouth views. On the left side, the disc is again hard to delineate. However, I believe this is slightly anteriorly displaced, and does not reduce with mouth opening although the degree of mouth opening as stated is minimal. No other abnormalities. IMPRESSION IMPRESSION: 1. A bit better visualization on this exam than previous, although I do not have those films directly available for the patient. There is again noted to be small condyle on the right with irregular signal. The disc itself I believe may be in a normal position. Minimal movement of the condyle with mouth opening on both sides. On the left side, although the previous exam suggested that the disc is normal in position, this exam does suggest that it is slightly anteriorly displaced. Evaluation of reduction is not truly possible in that the patient's condyle barely moves between open and closed mouth views. Evaluation for fibrous ankylosis is difficult. While the joint space on the left side is somewhat more normal in appearance, on the right side, particularly on the T2 scans, I can barely see a joint space. 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 ; /misael Kain Lechuga DDS IMG MRI ORDERABLES Final Res ult documented in this encounter Visit Diagnoses Not on filedocumented in this encounter Additional Health Concerns Infection Onset Date Last Indicated Resolved Time R/O COVID-19 Comment:Negative result 03/07/2022 03/07/2022 03/07/2022 9:37 EDT R/O COVID-19 01/28/2024 01/28/2024 01/29/2024 0:27 EST documented as of this encounter
--- OUTSIDE RECORDS SUMMARY | 2024-12-03 16:07 | XMS_ITS | Encounter Summary ---
Author Organization [facility] Address [address] [place] [address] Care Team Providers Care Ward Clerk Name Role Phone Marci Nolasco MD Primary Care Provider [phone] Alejandrina Carrillo PA-C Primary Care Provider [phone] Encounter Details Date Type Department Care Team (Late st Contact Info) Description 08/03/[address] [facility] Radiology Results [address] [place] [phone] Bucky Matta MD Social History Tobacco Use [...] [facility] Neurology Clinic [address] [place], [place] [phone] Brayan Polk MD 130 [facility] [address] [place] [address] 07/14/2025 14:30 EDT Office Visit [facility] Hematology & Oncology - [address] [phone] Evin Maria MD 111 [facility], [facility], Level [address] [place] [address] (work) documented as of this encounter Procedures Procedure Name Priority Date/Time Associated Diagnosis Comments XR CHEST 2 VIEWS 08/03/2015 14:1 5 EDT documented in this encounter Results * XR CHEST 2 VIEWS (08/03/2015 14:15 EDT) Anatomical Region Laterality Modality Other 08/03/2015 14:1 5 EDT Narrative 08/03/2015 14:19 EDT ? EXAM: RADIOLOGY/CHEST (PA ?? LAT) ?EX. D/ (5865) ? CLINICAL INFORMATION: ? CP ? INDICATION: Chest pain. ? TECHNIQUE: ??Chest, PA and lateral views ? COMPARISON: None ? FINDINGS: ? The lungs are clear. The cardiomediastinal silhouette ? and pulmonary vessels are within normal limits. No pleural effusion ? or pneumothorax is seen. ? IMPRESSION: ? 1. No acute cardiopulmonary disease detected. ? REPORT SIGNED IN OTHER VENDOR SYSTEM 08/03/2015 ?Reported By: Toni Disla MD ? CC: ? Transcribed Date/Time: 08/03/2015 (1419) ? Wind Turbine Service Technician: ? Printed Date/Time: 05/05/2019 (1136) ? PAGE 1 ? Signed Report ? Procedure Note Toni Disla MD - 09/29/2019 EXAM: RADIOLOGY/CHEST (PA LAT) EX. D/ (1205) CLINICAL INFORMATION: CP INDICATION: Chest pain. TECHNIQUE: Chest, PA and lateral views COMPARISON: None FINDINGS: The lungs are clear. The cardiomediastinal silhouette and pulmonary vessels are within normal limits. No pleural effusion or pneumothorax is seen. IMPRESSION: 1. No acute cardiopulmonary disease detected. REPORT SIGNED IN OTHER VENDOR SYSTEM 08/03/2015 Reported By: Toni Disla MD CC: Transcribed Date/Time: 08/03/2015 (3331) Wind Turbine Service Technician: SCR Printed Date/Time: 05/05/2019 (2230) PAGE 1 Signed Report us Bucky Matta MD IMG DIAGNOSTIC IMAGING ORDERA BLES Final Result documented in this encounter Visit Diagnoses Not on filedocumented in this encounter Care Teams Ward Clerk Relationship Specialty Start Date End Date Marci Nolasco MD [address] [place] [phone] PCP - General 06/10/09 04/06/19 Alejandrina Carrillo PA-C [address] [place] [address] PCP - General 04/07/19 07/05/20 documented as of this encounter
--- OUTSIDE RECORDS SUMMARY | 2024-12-03 16:07 | XMS_ITS | Encounter Summary ---
Author Organization [facility] Address [address] [place] [address] Care Team Providers Care Long Term Care Pharmacist Name Role Phone Marci Nolasco MD Primary Care Provider [phone] Alejandrina Carrillo PA-C Primary Care Provider [phone] Encounter Details Date Type Department Care Team (Late st Contact Info) Description 12/10/2012 Historical Results Only [facility] - [address] [address] Unknown, Provider, Social History Tobacco Use [...] EDT Telemedicine [facility] Neurology Clinic [address] [place] [address] Brayan Polk MD [address] [place] [address]A [address] [place] [address] 07/14/2025 14:30 EDT Office Visit [facility] Cancer Center Hematology & Oncology - [address] [address] Evin Maria MD [address] [place] [address], [facility], Level [address] [place] [address] documented as of this encounter Procedures Procedure Name Priority Date/Time Associated Diagnosis Comments SURGICAL PATHOLOGY Routine 12/10/2012 14 :14 EST documented in this encounter Results * SURGICAL PATHOLOGY (12/10/2012 14:14 EST) 12/10/2012 14:1 4 EST 12/11/2012 10:51 EST Narrative [facility] - 12/12/2012 10:35 EST ----- ------- Name: NAPOLEON WHITE ? : [birth year] ?Age/Sex: 49/F ?Unit#: [id number] ? Loc: [facility] ? Status: REG REF ?? Reg Date: 12/10/12 ? Pt.Phone Number: ? ----- ------- Specimen: [id number] ?STATUS: SOUT ?Spec Date:12/10/12 ? Physician Copies: ?Damon Siddiqi ?? Tissues: A ?? Breast Stereotactic (RIGHT BREAST 12:30) ? Marci Nolasco MD ?KAYLA KINGSTON ?? CPT: 51058 ?? Units: ??1 ?FINAL DIAGNOSIS ? 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 ?Interlobular fibrosis. ?Duct ectasia. ? GROSS DESCRIPTION ? Received in formalin and labeled right breast stereotactic biopsies are two ? containers, one with calcifications and one without. ? Block 1 received in the container calcifications is a 1.2 x 0.2 cm diameter ? fibrofatty tissue core, e.s. ? Block 2 received in the container no calcifications are tissue cores ? aggregating 1 cm in diameter x 0.3 cm, e.s. ??BT ?? PREOP DX/CLINICAL HISTORY ?Right breast calcifications. ??6 mm cluster of microcalcs 7 to 8 ?in number at 1230 o'clock 7 cm FN Signed ____(signature on file)____ Tigre Flores M.D. 12/12/12 ?? By the signature above, the attending physician certifies that he/she has personally conducted a gross and/or microscopic examination of the described specimens and rendered or confirmed the above diagnosis. Test Performed by [facility], [address] [place] [id number] Voice Professor: Linnette Gonsales MD PHD ----- ------- us Provider Unknown PATHOLOGY ORDERABLES Final R esult [facility] documented in this encounter Visit Diagnoses Not on filedocumented in this encounter Care Teams Long Term Care Pharmacist Relationship Specialty Start Date End Date Marci Nolasco MD [address] [place] [phone] PCP - General 06/10/09 04/06/19 Alejandrina Carrillo PA-C [address] [place] [address] PCP - General 04/07/19 07/05/20 documented as of this encounter
--- OUTSIDE RECORDS SUMMARY | 2024-12-03 16:07 | XMS_ITS | Encounter Summary ---
Author Organization [facility] Address [address] [place] [address] Care Team Providers Care Filter Tip Inspector Name Role Phone Marci Nolasco MD Primary Care Provider [phone] Alejandrina Carrillo PA-C Primary Care Provider [phone] Encounter Details Date Type Department Care Team (Late st Contact Info) Description 11/03/2012 Historical Results Only [facility] - [address] [address] Marci Nolasco MD [address] [place] [phone] Social History Tobacco Use Types Packs/Day [...] [facility] Neurology Clinic [address] [place] [address] Brayan Polk MD [address] [place] [address] [place] [address] 07/14/2025 14:30 EDT Office Visit [facility] Cancer Center Hematology & Oncology - [address] [address] Evin Maria MD 111 [facility] Level 2 [place] [phone] documented as of this encounter Procedures Procedure Name Priority Date/Time Associated Diagnosis Comments PAP TEST Routine 11/03/2012 documented in this encounter Results * PAP TEST (11/03/2012) 11/03/2012 11/04/2012 11: 27 EST Narrative [facility] - 11/11/2012 9:44 EST ----- ------- Name: NAPOLEON WHITE ? : [birth year] ?Age/Sex: 49/F ?Unit#: [id number] ? [facility] ? Status: REG REF ?? Reg Date: 11/03/12 ? Pt.Phone Number: ? ----- ------- Specimen: [id number] ?STATUS: SOUT ?Spec Date:11/03/12 ? Physician Copies: ?Marci Nolasco MD Tissues: ? Cervical/Endo Pap ? CPT: 02942 ?? Units: ??1 ----- ------- ? CYTOLOGY DIAGNOSIS SPECIMEN ADEQUACY: ?Satisfactory for evaluation. Transformation zone component ABSENT. GENERAL CATEGORIZATION: ?Epithelial Cell Abnormality. DESCRIPTIVE DIAGNOSIS: ??Squamous cell Abnormality - ?Atypical squamous cells - undetermined significance (ASC-US). RECOMMENDATIONS/COMMENTS: ??Recommend following the 2006 Consensus Guidelines for the Management of ??Women with Cervical Cytologic Abnormalities. ??Management algorithms have been distributed and are also available online at www.ASCCP.org/consensus.shtml. ----- ------- ?HPV DNA RESULTS ?? 11/03/12 1220 HPV DNA RESULT ??POS ? Positive for one or more of HPV types 16, 18, 31, 33, 35, ? 39, 45, 51, 52, 56, 58, 59, 66, or 68. ? Method: Cervista HPV HR (High Risk) DNA test. ----- ------- ORDER QUERIES: LMP: 10/25/12- ? Post ? N ??PREVIOUS ATYPICAL: N BCP/HRT? N Rad Rx? N IUD?PAP PLUS HPV? Y ??REFLEX TO HR-HPV IF ASCUS ?? REFLEX TO HPV 16/18 IF HPV POS/PAP NEG ?? HPV REGARDLESS?RFLX HPV IF LSIL ?? IF ASCUS DO HPV?[facility] Information ? [facility] ?? Patients Phone# ??[phone] ?? [facility] Order# ? Signed ____(signature on file)____ Linnette Gonsales M.D. 11/11/12 By the signature above, the attending physician certifies that he/she has personally conducted a gross and/or microscopic examination of the described specimens and rendered or confirmed the above diagnosis. Test Performed by [facility], [address] [place] [address] Blast Setter: Linnette Gonsales MD PHD ----- ------- us Marci Nolasco MD PATHOLOGY ORDERABLES Final Res ult [facility] documented in this encounter Visit Diagnoses Not on filedocumented in this encounter Care Teams Filter Tip Inspector Relationship Specialty Start Date End Date Marci Nolasco MD [address] [place] [phone] PCP - General 06/10/09 04/06/19 Alejandrina Carrillo PA-C [address] [place] [address] PCP - General 04/07/19 07/05/20 documented as of this encounter
--- OUTSIDE RECORDS SUMMARY | 2024-12-03 16:07 | XMS_ITS | Encounter Summary ---
Author Organization [facility] Address [address] [place] [address] Care Team Providers Care Tooth Cutter Clutch Name Role Phone Marci Nolasco MD Primary Care Provider [phone] Alejandrina Carrillo PA-C Primary Care Provider [phone] Encounter Details Date Type Department Care Team (Late st Contact Info) Description 12/04/2018 Historical Results Only [facility] Radiology Results [address] [place], [place] [phone] Anushka Bella PA-C [address] [place] [phone] Social History Tobacco Use Types Packs/Day [...] Contact Info) Description 03/04/2025 14:00 EDT Telemedicine [facility] Neurology Clinic [address] [place] [address] Brayan Polk MD [address] [facility] [address] [place] [address] 07/14/2025 14:30 EDT Office Visit [email or web address] Cancer Center Hematology & Oncology - [address] [place] [place] [address] Evin Maria MD 111 [facility], Level [address] [place] [address] documented as of this encounter Procedures Procedure Name Priority Date/Time Associated Diagnosis Comments XR ANKLE LEFT 3 OR MORE VIEWS 12/04/2018 11:44 EST documented in this encounter Results * XR ANKLE LEFT 3 OR MORE VIEWS (12/04/2018 11:44 EST) Anatomical Region Laterality Modality Lower Extremities, Ankle Left Other 12/04/2018 11:4 4 EST Narrative 12/04/2018 11:47 EST ? EXAM: RADIOLOGY/ANKLE LEFT 3+VIEW ? EX. D/ (1128) ? CLINICAL INFORMATION: ? S82.83A CLOSED FRACTURE OF DISTAL END OF LEFT FIBULA ? INDICATION: S82.83A CLOSED FRACTURE OF DISTAL END OF LEFT FIBULA 3 ? MONTH F/U FOR DIABETES ? TECHNIQUE: 3 views left ankle. ? COMPARISON: 10/30/2018. ? FINDINGS: There is a healing distal fibula fracture. Alignment is ? near-anatomic. No additional fractures are seen. The talar dome ? appears intact. ? IMPRESSION: ? Healing distal fibula fracture. ? REPORT SIGNED IN OTHER VENDOR SYSTEM 12/04/2018 ?Reported By: Toni Disla MD ? CC: Anushka Bella PA-C ? Transcribed Date/Time: 12/04/2018 (1147) ? Editor Managing Newspaper: HIS.[email or web address] ? Printed Date/Time: 05/17/2019 (6771) ? PAGE 1 ? Signed Report ? Procedure Note Toni Disla MD - 10/01/2019 EXAM: RADIOLOGY/ANKLE LEFT 3+VIEW EX. D/ (1128) CLINICAL INFORMATION: S82.83A CLOSED FRACTURE OF DISTAL END OF LEFT FIBULA INDICATION: S82.83A CLOSED FRACTURE OF DISTAL END OF LEFT FIBULA 3 MONTH F/U FOR DIABETES TECHNIQUE: 3 views left ankle. COMPARISON: 10/30/2018. FINDINGS: There is a healing distal fibula fracture. Alignment is near-anatomic. No additional fractures are seen. The talar dome appears intact. IMPRESSION: Healing distal fibula fracture. REPORT SIGNED IN OTHER VENDOR SYSTEM 12/04/2018 Reported By: Toni Disla MD CC: Anushka Bella PA-C Transcribed Date/Time: 12/04/2018 (6857) Editor Managing Newspaper: Printed Date/Time: 05/17/2019 (0625) PAGE 1 Signed Report Anushka Bella PA-C IMG DIAGNOSTIC IMAGING ORDERABLES Final Result documented in this encounter Visit Diagnoses Not on filedocumented in this encounter Care Teams Tooth Cutter Clutch Relationship Specialty Start Date End Date Marci Nolasco MD [address] [place] [phone] PCP - General 06/10/09 04/06/19 Alejandrina Carrillo PA-C [address] [place] [address] PCP - General 04/07/19 07/05/20 documented as of this encounter
--- OUTSIDE RECORDS SUMMARY | 2024-12-03 16:07 | XMS_ITS | Encounter Summary ---
Author Organization [facility] Address [address] [place] [address] Care Team Providers Care Sheet Metal Mechanic Name Role Phone Marci Nolasco MD Primary Care Provider [phone] Encounter Details Date Type Department Care Team (Latest Contact Info) Description 10/30/2018 13:02 EST - 10/30/2018 23:59 EST Hospital Encounter [address] [address] Unknown, Provider, MD Discharge Disposition: Home or [...] Code Departure Means Destination Home or Self Longterm documented in this encounter Plan of Treatment Upcoming Encounters Date Type Department Care Team (Late st Contact Info) Description 03/04/2025 14:00 EDT Telemedicine [facility] Neurology Clinic [address] [place], [place] [phone] Brayan Polk MD [address] [place] [address] [place] [phone] 07/14/2025 14:30 EDT Office Visit [facility] Cancer Center Hematology & Oncology - [address] [phone] Evin Maria MD 111 [facility], [facility], Level 2 [place] [address] documented as of this encounter Visit Diagnoses Not on filedocumented in this encounter Care Teams Sheet Metal Mechanic Relationship Specialty Start Date End Date Marci Nolasco MD [address] [place] [phone] PCP - General 06/10/09 04/06/19 documented as of this encounter
--- OUTSIDE RECORDS SUMMARY | 2024-12-03 16:07 | XMS_ITS | Encounter Summary ---
Author Organization [facility] Address [address] [place] [address] Care Team Providers Care Milk Route Deliverer Name Role Phone Marci Nolasco MD Primary Care Provider [phone] Karol Dillard MD Primary Care Provider [phone] Encounter Details Date Type Department Care Team (Late st Contact Info) Description 10/15/2006 Before PRISM Converted Visit (Maple) [facility] - Maple conversion [address] [place] [address] Aníbal Payton MD Social History Tobacco Use Types Packs/Day Years Used Date Smoking Tobacco: Never Assessed Comments Unknown Sex and Gender Information Value Date Recorded Sex Assigned at Not on file Legal Sex Female 17:42 EST Gender Identity Female 03/18/2020 17:54 EDT Sexual Orientation Not on file documented as of this encounter Progress Notes * Pollo, Conv Hydraulic Pile Hammer Operator - 12/11/20091953 EST Primary Care Internal Medicine [address] [place] [address] PROGRESS/FOLLOWUP NOTE - 10/15/2006 PROBLEM: Knee pain SUBJECTIVE: Six months ago developed bilateral painful knees. Would come and go but would regularlywake her from sleep. There is no associated swelling or redness or heat and no other joint problems. Gradually subsided until about a week ago. Is having sharp pains in her left knee, also waking herup. Feeling it most at night. She does not exercise regularly. Does not stretch. There is no locking, clinking or giving way. No fever, sweats or chills. No history of arthritis. Medication and problem list reviewed and updated. OBJECTIVE: Flow sheet normal. Good musculoskeletal exam. Good range ofmotion in all joints without evidence of inflammation, specifically the knees are symmetric without tenderness with good patellarmobility. There is no effusion. There is limitation in flexibility at the hamstrings and hips and quadriceps. ASSESSMENT: Myofascial knee pain/patellofemoral syndrome. No evidence of underlying arthropathy or ligamentous derangement. PLAN: Stretching program. Contingency physical therapy referral. Signed by Aníbal Payton MD 10/28/2006 11:56 Maren Zuniga MD Aníbal Payton MD - Aníbal Payton MD [facility] Job ID: [id number] Document ID: [id number] cc: - [facility] Job ID: [id number] Document ID: [id number] cc: documented in this encounter Plan of Treatment Upcoming Encounters Date Type Department Care Team (Late st Contact Info) Description 03/04/2025 14:00 EDT Telemedicine [facility] Neurology Clinic [address] [place] [address] Brayan Polk MD 130 [facility] [address] [place] [address] 07/14/2025 14:30 EDT Office Visit [facility] Cancer Center Hematology & Oncology - [address] [phone] Evin Maria MD 111 [facility] 2 [place] [phone] documented as of this encounter Visit Diagnoses Not on filedocumented in this encounter Care Teams Milk Route Deliverer Relationship Specialty Start Date End Date Marci Nolasco MD [address] [place] [phone] PCP - General 06/10/09 04/06/19 Karol Dillard MD 1 [facility] 1 [place] [phone] PCP - General 06/09/09 06/09/09 documented as of this encounter
--- OUTSIDE RECORDS SUMMARY | 2024-12-03 16:07 | XMS_ITS | Encounter Summary ---
Author Organization [facility] Address [address] [place] [address] Care Team Providers Care Incident Response Coordinator Name Role Phone Marci Nolasco MD Primary Care Provider [phone] Alejandrina Carrillo PA-C Primary Care Provider [phone] Encounter Details Date Type Department Care Team (Late st Contact Info) Description 05/02/2011 Historical Results Only [facility] Lab - [address] [address] Marci Nolasco MD [address] [place] [phone] Social History Tobacco Use Types Packs/Day [...] EDT Telemedicine [facility] Neurology Clinic [address] [place] [address] Brayan Polk MD [address] [place] [address] [place] [phone] 07/14/2025 14:30 EDT Office Visit [facility] Cancer Center Hematology & Oncology - [address] [address] Evin Maria MD 111 [facility] Level 2 [place] [address] documented as of this encounter Procedures Procedure Name Priority Date/Time Associated Diagnosis Comments PAP TEST Routine 05/02/2011 documented in this encounter Results * PAP TEST (05/02/2011) 05/02/2011 05/03/2011 14: 27 EDT Narrative [facility] - 05/07/2011 10:54 EDT ----- ------- Name: NAPOLEON WHITE ? : [birth year] ?Age/Sex: 49/F ?Unit#: [id number] ? Loc: [facility] ? Status: REG REF ?? Reg Date: 05/03/11 ? Pt.Phone Number: ? ----- ------- Specimen: [id number] ?STATUS: SOUT ?Spec Date:05/02/11 ? Physician Copies: ?Marci Nolasco MD Tissues: ? Cervical/Endo Pap ? CPT: 34176 ?? Units: ??1 ----- ------- ? CYTOLOGY DIAGNOSIS SPECIMEN ADEQUACY: ?Satisfactory for evaluation. Transformation zone component ABSENT. GENERAL CATEGORIZATION: ?Negative for Intraepithelial Lesion or Malignancy DESCRIPTIVE DIAGNOSIS: ? Negative for Intraepithelial Lesion or Malignancy. RECOMMENDATIONS/COMMENTS: ?None. ----- ------- ?HPV DNA RESULTS ?? 05/02/11 UNK ??HPV DNA RESULT ??NEG ? Negative for HPV types 16, 18, 31, 33, 35, 39, 45, 51, 52, ? 56, 58, 59, 66, 68. ? Method: Cervista HPV HR (High Risk) DNA test. ----- ------- ORDER QUERIES: LMP: ? - [id number] ? Post ? N ??PREVIOUS ATYPICAL: N BCP/HRT? N Rad Rx? N IUD?PAP PLUS HPV? Y ??REFLEX TO HR-HPV IF ASCUS ?? REFLEX TO HPV 16/18 IF HPV POS/PAP NEG ?? HPV REGARDLESS?RFLX HPV IF LSIL ?? IF ASCUS DO HPV? Y ?[facility] Information ? [facility] ?? Patients Phone# ??[phone] ?? [facility] Order# ? Signed Zay Hwang CT(ASCP) 05/07/11 By the signature above, the attending physician certifies that he/she has personally conducted a gross and/or microscopic examination of the described specimens and rendered or confirmed the above diagnosis. Test Performed by [facility], [address] [place] [address] Commercial Accountant: Linnette Gonsales MD PHD ----- ------- us Marci Nolasco MD PATHOLOGY ORDERABLES Final Res ult [facility] documented in this encounter Visit Diagnoses Not on filedocumented in this encounter Care Teams Incident Response Coordinator Relationship Specialty Start Date End Date Marci Nolasco MD [address] [place] [phone] PCP - General 06/10/09 04/06/19 Alejandrina Carrillo PA-C [address] [place] [place] [address] PCP - General 04/07/19 07/05/20 documented as of this encounter
--- OUTSIDE RECORDS SUMMARY | 2024-12-03 16:07 | XMS_ITS | Encounter Summary ---
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 Role Phone Unavailable Primary Care Provider Unavailabl e Encounter Details Date Type Department Care Team (Late st Contact Info) Description 11/15/2000 18:25 EST Hospital Encounter [facility] - Other [address] [place] [address] Oxana Lowery MD [address] [place] [phone] Unknown, Provider, MD Social History Tobacco Use Types Packs/Day [...] 03/04/2025 14:00 EDT Telemedicine [facility] [address] [place] [phone] Brayan Polk MD 130 [facility] [address] [place] [phone] 07/14/2025 14:30 EDT Office Visit [facility] Cancer Center Hematology & Oncology - [facility] [address] [place] [address] Evin Maria MD 111 [facility], Level 2 [place] [address] documented as of this encounter Procedures Procedure Name Priority Date/Time Associated Diagnosis Comments HEMAGRAM & DIFF Routine 11/15/2000 10:30 EST documented in this encounter Results * (ABNORMAL) HEMAGRAM & DIFF (11/15/2000 10:30 EST) WBC 8.73 4.0 - 12.4 K/cmm [facility] RBC 4.15 3.86 - 5.04 M/cmm [facility] Hemoglobin 11.9 11.6 - 15.2 gm/dl [facility] HCT 34.7(L) 34.9 - 44.4 % [facility] MCV 84 81 - 98 fl [facility] MCH 28.8 26.7 - 33.3 pg [facility] MCHC 34.3 32.1 - 35.9 gm/dl [facility] PLT 307 141 - 320 K/cmm [facility] RDW-CV 14.6 11.7 - 14.6 % [facility] % Neutrophils 63.3 45.5 - 79.7 % [facility] % Lymphocytes 29.4 15.0 - 46.8 % [facility] % Monocytes 5.3 1.8 - 12.0 % [facility] % Eosinophils 1.6 0.6 - 6.9 % [facility] % Basophils 0.4 0.2 - 1.4 % [facility] ABS Neutrophils 5.53 2.20 - 8.85 K/cmm [facility] ABS Lymphs 2.57 1.09 - 3.30 K/cmm [facility] ABS Monocytes 0.46 0.1 - 0.8 K/cmm [facility] ABS Eosinophils 0.14 0.03 - 0.61 K/cmm [facility] ABS Basophils 0.04 0.01 - 0.11 K/cmm [facility] Type of Diff: Automated [facility] 11/15/2000 10:3 0 EST 11/15/2000 12:44 EST us Oxana Lowery MD HISTORICAL LAB FOR SQ LOAD Shannon l Result [facility] [address] [place] [address] documented in this encounter Visit Diagnoses Not on filedocumented in this encounter Additional Health Concerns Infection Onset Date Last Indicated Resolved Time R/O COVID-19 Comment:Negative result 03/07/2022 03/07/2022 03/07/2022 9:37 EDT R/O COVID-19 01/28/2024 01/28/2024 01/29/2024 0:27 EST documented as of this encounter
[2024-12-03 17:44] LABS: ALT 51 U/L (14-59); AST 26 U/L (15-37); Albumin 3.2 g/dL (3.4-5.0); Alkaline Phosphatase 130 U/L (46-116); Anion Gap 7.9 mmol/L (3-11); BUN 21 mg/dL (7-18); Bilirubin, Total 0.37 mg/dL (0.2-1.0); CO2 26.1 mmol/L (21.0-32.0); CREATININE 0.9 mg/dL (0.55-1.02); Calcium 9.3 mg/dL (8.5-10.1); Chloride 108 mmol/L (98-107); Estimated GFR 75.03 (mL/min/1.73m2); Glucose 121 mg/dL (74-106); Potassium 4.3 mmol/L (3.5-5.1); Sodium 142 mmol/L (136-145); Total Protein 6.2 g/dL (6.4-8.2); Vitamin B12 665 pg/mL (193-986)
== END 2024-12-03 15:39 | disposition home or self-care (01) ==
LOC: LBN 15:38
PROVIDERS: PCP Family Medicine; Visit Provider Family Medicine Geriatric Medicine
DX: M62.81 Muscle weakness (generalized) (principal)
CPT/HCPCS: 80053; 82607

== ENCOUNTER 2025-02-10 18:30 | Outpatient (REF) | payer MEDICARE, SELFPAY ==
[2025-02-10 17:57] LABS: Abs Immature Grans 0.02 10^3/uL (0.0-0.06); Absolute Basophil Count 0.03 10^3/uL (0.0-0.2); Absolute Eosinophil Count 0.01 10^3/uL (0.0-0.7); Absolute Lymphocyte Count 2.22 10^3/uL (1.2-3.4); Absolute Monocyte Count 0.39 10^3/uL (0.1-0.8); Absolute Neutrophil Count 3.38 10^3/uL (1.2-6.7); Basophils % 0.5 %; Eosinophils % 0.2 %; HCT 38.1 % (36.0-46.0); HGB 12.2 g/dL (11.2-15.7); Immature Grans % 0.3 %; Lymphocytes % 36.7 %; MCH 27.5 pg (27.0-33.0); MCV 86 fL (80-95); MPV 11.5 fL (8.0-11.0); Monocytes % 6.4 %; Neutrophils % 55.9 %; Platelet Count 192 10^3/uL (130-400); RBC 4.44 10^6/uL (3.93-5.22); RDW 13.4 % (11.7-14.6); RDW-SD 42.2 fL; WBC 6.05 10^3/uL (4.4-10.8)
[2025-02-10 18:55] LABS: Folate 19.2 ng/mL (8.6-20.0); Vitamin B12 777 pg/mL (193-986)
== END 2025-02-10 18:31 | disposition home or self-care (01) ==
LOC: LBN 18:30
PROVIDERS: PCP Family Medicine; Visit Provider Family Medicine Geriatric Medicine
DX: E53.8 Deficiency of other specified B group vitamins (principal)
CPT/HCPCS: 82607; 82746; 83735; 85025

== ENCOUNTER → 2025-03-25 08:43 | Outpatient (BNVA) | payer MEDICARE, MEDICAID, SELFPAY | PROVIDERS: PCP Family Medicine; Referring Provider Family Medicine; Visit Provider Nurse Practitioner Gerontology | DX: R33.9 Retention of urine, unspecified (principal); N39.0 Urinary tract infection, site not specified; I10 Essential (primary) hypertension | CPT/HCPCS: 99204 ==

== ENCOUNTER 2025-04-14 01:58 | Outpatient (CLI) | payer MEDICARE, MEDICAID, SELFPAY ==
--- NOTE | 2025-04-14 13:40 | DI.US_ITS ---
Exam(s) US RENAL EXAM: US RENAL CLINICAL HISTORY: ? hydro with neurogenic bladder,urinary retention,recurrent uti,r33.9,n39.0. TECHNIQUE: Mukherjee scale, color and spectral Doppler were used. COMPARISON: No exams were available for comparison FINDINGS: Renal size in cm: Right: 9.1. Left: 10.3. Echogenicity: Normal. Hydronephrosis: No. Cyst or mass: No. Nephrolithiasis: No. Other findings: None. Bladder:Normal. Ureteral jets: Right: Not visualized on this examination. Left: Not visualized on this examination. Prevoid vol:19 cc Postvoid vol:Not obtained on this examination. Renal color flow: Symmetric and within normal limits. IMPRESSION: No evidence of hydronephrosis. DATA REPOSITORY:
== END 2025-04-14 02:18 ==
PROVIDERS: PCP Family Medicine; Visit Provider Nurse Practitioner Gerontology
DX: R33.9 Retention of urine, unspecified (principal); N39.0 Urinary tract infection, site not specified
CPT/HCPCS: 76770

== ENCOUNTER → 2025-04-15 12:54 | Outpatient (BNVA) | payer MEDICARE, MEDICAID, SELFPAY | PROVIDERS: PCP Family Medicine; Referring Provider Family Medicine; Visit Provider Nurse Practitioner Gerontology | DX: R33.9 Retention of urine, unspecified (principal); N39.0 Urinary tract infection, site not specified | CPT/HCPCS: 99214 ==

== ENCOUNTER 2025-04-16 20:54 | Outpatient (REF) | payer MEDICARE, SELFPAY ==
[2025-04-16 20:13] LABS: Bilirubin Negative (Negative); Blood Moderate (Negative); Clarity Cloudy (Clear); Glucose Negative (Negative); Ketones Negative (Negative); Leukocyte Esterase Small (Negative); Nitrite Negative (Negative); Urobilinogen 0.2 mg/dL (Up to 0.2); pH 8.5 (5-8)
[2025-04-16 20:26] LABS: Bacteria Many HPF (Negative); C & S Indicated? C&S Done As Ordered; Casts Negative LPF (Negative); Crystals Negative HPF (Negative); Epithelial Cells Rare HPF (Negative); Mucus Negative (Negative); RBC 0-2 HPF (0-2)
== END 2025-04-16 20:55 | disposition home or self-care (01) ==
LOC: LBN 20:54
PROVIDERS: PCP Family Medicine; Visit Provider Nurse Practitioner Gerontology
DX: E83.42 Hypomagnesemia (principal)
CPT/HCPCS: 87077; 81003; 81015; 87086; 87186

== ENCOUNTER 2025-06-07 19:18 | Outpatient (REF) | payer MEDICARE, SELFPAY ==
[2025-06-07 20:48] LABS: Glucose Negative (Negative); RBC 20-50 HPF (0-2); WBC 20-50 HPF (0-5)
== END 2025-06-07 19:19 | disposition home or self-care (01) ==
LOC: LBN 19:18
PROVIDERS: PCP Family Medicine; Visit Provider Nurse Practitioner Gerontology
DX: R29.6 Repeated falls (principal)
CPT/HCPCS: 81003; 81015; 87086

== ENCOUNTER 2025-06-14 15:04 | Outpatient (REF) | payer MEDICARE, SELFPAY ==
[2025-06-14 16:42] LABS: Glucose Negative (Negative)
[2025-06-14 16:54] LABS: WBC 20-50 HPF (0-5)
== END 2025-06-14 15:05 | disposition home or self-care (01) ==
LOC: LBN 15:04
PROVIDERS: PCP Family Medicine; Visit Provider Nurse Practitioner Adult Health
DX: I50.22 Chronic systolic (congestive) heart failure (principal)
CPT/HCPCS: 87077; 81003; 81015; 87086; 87186

== ENCOUNTER 2025-06-17 15:35 | Outpatient (REF) | payer MEDICARE, SELFPAY ==
[2025-06-17 13:03] LABS: Abs Immature Grans 0.02 10^3/uL (0.0-0.06); HCT 35.7 % (36.0-46.0); HGB 11.5 g/dL (11.2-15.7); Immature Grans % 0.3 %; MCH 27.1 pg (27.0-33.0); MCHC 32.2 % (32.0-36.0); MCV 84 fL (80-95); MPV 11.8 fL (8.0-11.0); Platelet Count 196 10^3/uL (130-400); RBC 4.24 10^6/uL (3.93-5.22); RDW 13.6 % (11.7-14.6); RDW-SD 41.8 fL; WBC 6.91 10^3/uL (4.4-10.8)
[2025-06-17 13:23] LABS: ALT 53 U/L (14-59); AST 27 U/L (15-37); Albumin 3.4 g/dL (3.4-5.0); Alkaline Phosphatase 122 U/L (46-116); Anion Gap 6.8 mmol/L (3-11); BUN 14 mg/dL (7-18); Bilirubin, Total 0.4 mg/dL (0.2-1.0); CO2 30.2 mmol/L (21.0-32.0); Calcium 8.8 mg/dL (8.5-10.1); Chloride 104 mmol/L (98-107); Estimated GFR 58.61 (mL/min/1.73m2); Glucose 123 mg/dL (74-106); Potassium 3.8 mmol/L (3.5-5.1); Sodium 141 mmol/L (136-145); Total Protein 6.7 g/dL (6.4-8.2)
== END 2025-06-17 15:36 | disposition home or self-care (01) ==
LOC: LBN 15:35
PROVIDERS: PCP Family Medicine; Visit Provider Nurse Practitioner Gerontology
DX: N39.0 Urinary tract infection, site not specified (principal)
CPT/HCPCS: 80053; 83605; 85025

== ENCOUNTER 2025-06-26 11:48 | Emergency (ER) | payer MEDICARE, MEDICAID, SELFPAY ==
[2025-06-26] VITALS (10 sets, daily range): BP systolic 116–156; BP diastolic 67–86; PULSE 63–77; RESP 12; TEMP 36.5; O2SAT 95–100
--- NOTE | 2025-06-26 12:05 | W.ED.GENAD ---
Discharge Plan Disposition Patient Disposition: Home Condition: Stable Discharge Details Clinical Impression: Restless leg syndrome, Dizziness Primary Care Provider: Martha Brown ED Provider: Mayra Krishnamurthy Recommendations for Follow Up Recommended tests to be ordered by follow up provider: UA, LFTs Home Meds and New Rx's Prescriptions: New lorazepam [Ativan] 1 mg tablet 1 mg PO TID PRNQty: 10 0RF Rx Instructions: Take one tablet as needed for restless legs as often as every 8 hours No Action acetaminophen 325 mg capsule 650 mg PO TID PRN apixaban 2.5 mg tablet 2.5 mg PO BID cholecalciferol (vitamin D3) 25 mcg (1,000 unit) capsule 25 mcg PO DAILY cyanocobalamin (vitamin B-12) 1,000 mcg capsule 1,000 mcg PO DAILY bisacodyl [Dulcolax (bisacodyl)] 10 mg suppository 10 mg MD DAILY PRN magnesium oxide 400 mg magnesium capsule 400 mg PO DAILY melatonin 5 mg tablet 5 mg PO HS multivitamin Tablet 1 tab PO DAILY prazosin 1 mg capsule 1 mg PO QHS pregabalin 200 mg capsule 200 mg PO BID ropinirole 1 mg tablet 1 mg PO DAILY tizanidine 2 mg capsule 2 mg PO BID pyridoxine (vitamin B6) 25 mg tablet 25 mg PO DAILY sennosides-docusate sodium [2-in-1 Laxative] 8.6-50 mg tablet 1 tab-cap PO BID metoclopramide HCl 5 mg tablet 5 mg PO QAC Rx Instructions: administer 30 minutes before meals Discharge Instructions Instructions: Restless Legs Syndrome (DC) Additional Instructions: You were seen in the emergency department today for evaluation of dizziness and pain in your legs, likely due to your restless leg syndrome. In our department a full physical examination performed and received medications which improved your leg symptoms. You had a CT scan of your brain that did not show any abnormalities compared to your priors, and had a CT scan of your abdomen and pelvis given your episode of abdominal pain earlier today which was normal. Your laboratory studies were largely reassuring, though I do note that you have a slight increase in your liver enzymes, which should be followed by your primary care provider. You have stable blood and cells in your urine, and this should also be followed up on. As you have not had urinary tract infection symptoms we will hold on initiating antibiotics. I recommended to your care team that they consider increasing your dose of ropinirole to help control your restless leg syndrome, and they could consider adding an as needed benzodiazepine (today you received Ativan 1 mg p.o.) for severe agitation and restless movements. Please follow-up with your primary care provider in the next few days to discuss this visit and any symptoms that change, worsen, or persist. Thank you for allowing us to be part of your care. HPI General Mode of arrival: EMS. Date/Time Provider Initiated Documentation: 06/26/25 12:00. Limitations to Documentation: no limitations. Information obtained by: patient, EMS and old records reviewed. HPI Narrative: This is a 55-year-old female patient presenting for evaluation of left greater than right sided leg pain and involuntary movements as well as vertigo. The patient reports that the symptoms have been present for several months. 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 She is anticoagulated for a history of thromboembolic disease. She states that for last 2 nights her leg pain has been much worse than typical for her, has been taking ropinirole without improvement. No recent falls or injuries, the pain is described as a cramping sensation, feels like she needs to move. The quality of the pain has not significantly changed. She also endorses for several months she has felt vertigo, nausea, states that the symptoms are not associated with new or worsening weakness, numbness, nor vision changes. She states that she is not experiencing any headache, chest pain, but does endorse some lower abdominal pain. She has no dysuria, hematuria, or diarrhea, last stool this morning. Related Data Home Medications ?Medication ?Instructions ?Recorded ?Confirmed acetaminophen 325 mg capsule 650 mg PO TID PRN 04/15/25 06/26/25 apixaban 2.5 mg tablet 2.5 mg PO BID 04/15/25 06/26/25 bisacodyl 10 mg rectal suppository 10 mg MD DAILY PRN 04/15/25 06/26/25 (Dulcolax (bisacodyl)) cholecalciferol (vitamin D3) 25 25 mcg PO DAILY 04/15/25 06/26/25 mcg (1,000 unit) capsule cyanocobalamin (vitamin B-12) 1,000 mcg PO DAILY 04/15/25 06/26/25 1,000 mcg capsule magnesium oxide 400 mg PO DAILY 04/15/25 06/26/25 melatonin 5 mg tablet 5 mg PO HS 04/15/25 06/26/25 multivitamin 1 tab PO DAILY 04/15/25 06/26/25 prazosin 1 mg capsule 1 mg PO QHS 04/15/25 06/26/25 pregabalin 200 mg capsule 200 mg PO BID 04/15/25 06/26/25 pyridoxine (vitamin B6) 25 mg 25 mg PO DAILY 04/15/25 06/26/25 tablet ropinirole 1 mg tablet 1 mg PO DAILY 04/15/25 06/26/25 tizanidine 2 mg capsule 2 mg PO BID 04/15/25 06/26/25 lorazepam 1 mg tablet (Ativan) 1 mg PO TID PRN #10 tabs 06/26/25 metoclopramide HCl 5 mg tablet 5 mg PO QAC 06/26/25 06/26/25 sennosides 8.6 mg-docusate sodium 1 tab-cap PO BID 06/26/25 06/26/25 50 mg tablet (2-in-1 Laxative) Previous Rx's ?Medication ?Instructions ?Recorded lorazepam 1 mg tablet (Ativan) 1 mg PO TID PRN #10 tabs 06/26/25 Allergies Allergy/AdvReac Type Severity Reaction Status Date / Time citalopram Allergy Unknown Verified 06/26/25 11:54 duloxetine Allergy Unknown Verified 06/26/25 11:54 gabapentin Allergy Unknown Verified 06/26/25 11:54 levetiracetam Allergy Unknown Verified 06/26/25 11:54 trazodone Allergy Unknown Verified 06/26/25 11:54 zolpidem Allergy Unknown Verified 06/26/25 11:54 General Stated Complaint: Orthopedic CONSUEOL: 4 Exam Narrative Exam Narrative: Gen: awake and alert, in no apparent distress. Appears well nourished. HEENT: PERRL, EOMs full though the patient has right-sided horizontal nystagmus, which does reproduce her dizziness symptoms. External ears and nose normal, mucous membranes moist. Neck: Supple, full range of motion, no observable masses Lungs: No increased work of breathing, lung sounds clear and equal bilaterally without wheezes, rhonchi, or rales. CV: Heart with regular rate and rhythm, no murmurs auscultated. Strong and symmetrical radial pulses. Abdomen: Soft, nondistended, mild tenderness to palpation in the bilateral lower quadrants, no rigidity, rebound tenderness, or guarding. MSK: No joint swelling, no redness. The patient has tenderness even with light touch of the left greater than right bilateral lower extremities throughout. She does not have any overlying skin changes, swelling, and has strong bilaterally palpable DP pulses. Skin: No rashes or lesions to visualized skin. Normal color, warm, and dry. Neuro: Cranial nerves II-XII intact and symmetrical bilaterally. 5 out of 5 strength right upper and lower, though the lower exam is limited by pain. 4 out of 5 left-sided upper and lower extremities, reported as baseline. No sensory deficits. Psych: Appropriate for situation. Course Vital Signs Vital signs: Vital Signs Temperature 36.5 C 06/26/25 11:48 Pulse 63 06/26/25 11:48 Respiratory Rate 12 06/26/25 11:48 Blood Pressure 116/67 06/26/25 11:48 Pulse Oximetry 97 06/26/25 11:48 Temperature 36.5 C 06/26/25 11:48 Temperature Source Oral 06/26/25 11:48 Pulse 63 06/26/25 11:48 Respiratory Rate 12 06/26/25 11:48 Blood Pressure 116/67 06/26/25 11:48 Blood Pressure Position Sitting 06/26/25 11:48 Pulse Oximetry 97 06/26/25 11:48 Oxygen Delivery Method Room Air 06/26/25 11:48 Oxygen Flow Rate 0 06/26/25 11:48 Medical Decision Making This is a 55-year-old female patient presenting for evaluation of vertigo and nausea as well as left greater than right sided leg pain for the last several months. My differential includes but is not limited to intracranial abnormalities including hemorrhage, considered CVA though the patient has new new focal neurodeficits. The duration of her symptoms make vascular abnormalities including ruptured aneurysm or dissection less likely. Certainly considered peripheral causes of vertigo including M?ni?re's disease, BPPV, labyrinthitis. Considered intra-abdominal pathology including gastritis/PUD, gastroenteritis, pancreatitis, cholecystitis and gallbladder pathology, hepatitis, appendicitis, diverticulitis, small bowel obstruction. Considered urinary pathology including UTI, nephrolithiasis. Considered restless leg syndrome, neuropathic pain no evidence for acute arterial occlusion, DVT less likely and this anticoagulated patient with no Unilateral swelling, no evidence of cellulitis. We will obtain laboratory studies to include CBC, CMP, magnesium, lipase, and urinalysis. I will obtain a Noncon CT head, and provide the patient with a dose of Tylenol for initial management of pain. - I independently interpreted the laboratory studies, which show no significant leukocytosis, anemia, or thrombocytopenia. The chemistry panel is without evidence of electrolyte abnormality, kidney dysfunction, though I do note a very mild transaminitis that was increased from priors. Lipase is low. The urinalysis shows trace hematuria and small leukocyte esterase, when I review her prior urinalysis studies this has been present frequently. She has a documented history of recurrent UTI, at this time is not experiencing any urinary tract symptoms and I feel it is reasonable to hold on antibiotics and repeat her urinalysis if she does develop symptoms. The patient continued to have painful spasming of her legs, and I did provide her with a small oral dose of Ativan to good effect. The patient's CT scans were reviewed by myself. She has evidence of chronic encephalomalacia in the area of her prior stroke, but no acute changes in her CT head to explain her dizziness, which is likely peripheral in nature given the horizontal nystagmus and reproducibility. The CT abdomen pelvis is without acute pathology, and the patient reports that her abdominal pain has resolved entirely. I counseled the patient that her providers may wish to increase her ropinirole dosing, and may want to add an as needed benzodiazepine for symptom control. I did provide her with a short course of Ativan to use as needed for breakthrough pain/uncontrollable leg movements while awaiting these prescription changes. She is ready and feels comfortable returning to the care facility, and at this time, the patient has had a full medical evaluation and is safe for discharge to home. They are hemodynamically stable, ambulatory, and tolerating PO. They are understanding of the follow-up plan and return precautions. They left our facility without incident. 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
[2025-06-26 12:44] LABS: Abs Immature Grans 0.01 10^3/uL (0.0-0.06); HCT 36.9 % (36.0-46.0); HGB 11.8 g/dL (11.2-15.7); Immature Grans % 0.2 %; MCH 26.5 pg (27.0-33.0); MCHC 32.0 % (32.0-36.0); MCV 83 fL (80-95); MPV 11.7 fL (8.0-11.0); Platelet Count 170 10^3/uL (130-400); RBC 4.46 10^6/uL (3.93-5.22); RDW 13.7 % (11.7-14.6); RDW-SD 41.1 fL; WBC 4.68 10^3/uL (4.4-10.8)
[2025-06-26] MEDS: Acetaminophen 500 MG TAB 1000 MG PO (12:44)
[2025-06-26] MEDS: LORazepam 1 MG TAB PO ×2 (12:58→14:38)
[2025-06-26 13:03] LABS: ALT 62 U/L (14-59); AST 47 U/L (15-37); Albumin 3.3 g/dL (3.4-5.0); Alkaline Phosphatase 112 U/L (46-116); Anion Gap 6.8 mmol/L (3-11); BUN 13 mg/dL (7-18); Bilirubin, Total 0.5 mg/dL (0.2-1.0); CO2 29.2 mmol/L (21.0-32.0); Calcium 9.5 mg/dL (8.5-10.1); Chloride 105 mmol/L (98-107); Estimated GFR 65.71 (mL/min/1.73m2); Glucose 111 mg/dL (74-106); Lipase 39 U/L (<78); Magnesium 1.8 mg/dL (1.8-2.4); Potassium 4.7 mmol/L (3.5-5.1); Sodium 141 mmol/L (136-145); Total Protein 7.1 g/dL (6.4-8.2)
[2025-06-26] MEDS: Normal Saline - Diluent 50 ML VIAL IJ (13:11)
[2025-06-26] MEDS: Omnipaque 350 MG/ML 100 ML BTL IJ (13:12)
--- NOTE | 2025-06-26 13:20 | DI.CT_ITS ---
Exam(s) CT HEAD WO EXAM: CT HEAD WO CLINICAL HISTORY: vertigo, hx CVA. TECHNIQUE: Imaging Protocol: Axial computed tomography images with coronal and sagittal reformatted images were created and reviewed COMPARISON: No exams were available for comparison FINDINGS: There multi level left-sided craniotomies involving the left frontal, temporal, and parietal bones. There are no skull fractures. There is no fluid in the visualized paranasal sinuses. There is a large area of encephalomalacia in the left temporoparietal region- territory of the left middle cerebral artery and there is ipsilateral ex vacuo dilatation of the left lateral ventricle. There is no shift of midline structures. No hemorrhage evident. IMPRESSION: No obvious acute intracranial findings on this noninfused CT scan of the brain. Extensive left-sided encephalomalacia in the left temporoparietal region. Left- sided craniotomies. Comparison to any prior outside CT scans or MRIs would be helpful. Preliminary virtual Radiology report was reviewed RADIATION DOSE DELIVERED: 906.52mGy.cm Total DLP DATA REPOSITORY: All CT scans at this facility are submitted to the National Radiology Data Registry (NRDR) Dose Index Registry (DIR) with the [employer] ([employer]). RADIATION OPTIMIZATION: All CT scans at this facility use at least one of these dose optimization techniques: automated exposure control; mA and/or kV adjustment per patient size (includes targeted exams where dose is matched to clinical indication); or iterative reconstruction.
--- NOTE | 2025-06-26 13:25 | DI.CT_ITS ---
Exam(s) CT ABDOMEN PELVIS W EXAM: CT ABDOMEN PELVIS W CLINICAL HISTORY: lower abd pain. TECHNIQUE: Imaging Protocol: Axial computed tomography images with coronal and sagittal reformatted images were created and reviewed CONTRAST MATERIAL: Intravenous: Omnipaque-350 100cc Oral: None COMPARISON: No exams were available for comparison FINDINGS: VISUALIZED LUNG BASES: No nodules nor pleural effusions evident. ABDOMEN: There is no ascites. LIVER: Liver is mildly hypodense implying steatosis. Liver size upper normal. There no discrete focal hepatic lesions. No dilated intrahepatic ducts. GALLBLADDER/BILIARY: No obvious gallbladder pathology. CBD is not dilated. PANCREAS: No evidence of pancreatic mass nor dilatation of the pancreatic duct. SPLEEN: Spleen is not enlarged. No obvious intrasplenic lesions. Splenic and portal veins are patent. ADRENALS: There are no significant adrenal masses. KIDNEYS:No significant cysts evident. No solid renal masses. No calculi nor hydronephrosis.. ABDOMINAL AORTA: Abdominal aorta is not enlarged. LYMPH NODES:There is no retroperitoneal nor paraaortic adenopathy. ABDOMINAL WALL: No evidence of significant anterior abdominal wall nor inguinal hernia. GI: There is no evidence of bowel obstruction, free air, nor abscess. PELVIS: GI: There are intraluminal appendicoliths in the appendix but no evidence of acute appendicitis.No evidence of sigmoid diverticulitis. LYMPH NODES: There is no intrapelvic nor inguinal adenopathy. REPRODUCTIVE: Uterus and adnexal regions appear age-appropriate and there is no free fluid in the pelvis. URINARY BLADDER: There is a large calculus on the posterior dependent wall of the urinary bladder, this disc like calculus measuring 26 mm wide by 9 mm thick by 26 mm craniocaudal. This appears to be a calculus and not calcification within a mass. There are no other focal findings in the urinary bladder. Pelvic ureters are not dilated. There are no calculi in the kidneys. OSSEOUS: No fractures and no significant osseous lesions. IMPRESSION: 1. There is a solitary large calculus in the urinary bladder on the dependent wall in the posterior bladder lumen. This calculus measures 26 x 9 x 26 mm. There are no calculi seen in the kidneys is no hydronephrosis nor hydroureter. 2. Hepatic steatosis. No discrete focal hepatic lesions. Liver size upper normal. No splenomegaly. No ascites. Preliminary virtual Radiology report was reviewed RADIATION DOSE DELIVERED: 821.48mGy.cm Total DLP DATA REPOSITORY: All CT scans at this facility are submitted to the National Radiology Data Registry (NRDR) Dose Index Registry (DIR) with the [employer] (A[employer]). RADIATION OPTIMIZATION: All CT scans at this facility use at least one of these dose optimization techniques: automated exposure control; mA and/or kV adjustment per patient size (includes targeted exams where dose is matched to clinical indication); or iterative reconstruction.
--- NOTE | 2025-06-26 13:38 | DI.VRAD_ITS ---
PROCEDURE INFORMATION: Exam: CT Head Without Contrast Exam date and time: 06/26/2025 1:17 PM Age: 55 years old Clinical indication: Other: Vertigo, HX CVA TECHNIQUE: Imaging protocol: Computed tomography of the head without contrast. COMPARISON: No relevant prior studies available. FINDINGS: Brain: Extensive encephalomalacia and gliosis in the left temporoparietal region No hemorrhage. Mild white matter disease. No mass effect. Cerebral ventricles: Ex vacuo dilatation on the left. No hydrocephalus Paranasal sinuses: Visualized sinuses are unremarkable. No fluid levels. Mastoid air cells: Visualized mastoid air cells are well aerated. Bones: Left sided frontal , temporal and parietal craniotomies. Left temporal cranioplasty No acute fracture. Soft tissues: Unremarkable. IMPRESSION: No acute intracranial abnormality. Postsurgical and chronic findings as noted. Comparison with prior images would be helpful to assess for stability Dictated and Authenticated by: Haile Martinez MD. Order[facility] Steve Nunez MD
--- NOTE | 2025-06-26 13:58 | DI.VRAD_ITS ---
PROCEDURE INFORMATION: Exam: CT Abdomen And Pelvis With Contrast Exam date and time: 06/26/2025 1:18 PM Age: 55 years old Clinical indication: Abdominal pain TECHNIQUE: Imaging protocol: Computed tomography of the abdomen and pelvis with contrast. Contrast material: OMNIPAQUE 350; Contrast volume: 100 ml; Contrast route: INTRAVENOUS (IV); COMPARISON: US RENAL 04/14/2025 1:58 PM FINDINGS: Liver: Fatty infiltration of the liver. Gallbladder and biliary ducts: Normal. No calcified stones. No ductal dilation. Pancreas: Normal. No ductal dilation. Spleen: Normal. No splenomegaly. Adrenal glands: Normal. No mass. Kidneys and ureters: Normal. No hydronephrosis. Stomach and bowel: Unremarkable. No obstruction. No mucosal thickening. Appendix: No evidence of appendicitis. Intraperitoneal space: Unremarkable. No free air. No significant fluid collection. Vasculature: Unremarkable. No abdominal aortic aneurysm. Lymph nodes: Unremarkable. No enlarged lymph nodes. Urinary bladder: Large calcification in the urinary bladder measures 2.5 x 1.2 cm. Reproductive: Unremarkable as visualized. Bones/joints: Unremarkable. No acute fracture. Soft tissues: Unremarkable. IMPRESSION: No acute findings. Dictated and Authenticated by: Sridevi Esparza MD. Order[facility] Steve Nunez MD
[2025-06-26 14:05] LABS: Glucose Negative (Negative)
[2025-06-26 14:23] LABS: C & S Indicated? Yes; RBC 0-2 HPF (0-2); WBC >50 HPF (0-5)
== END 2025-06-26 14:45 | disposition home or self-care (01) ==
PROVIDERS: Emergency Provider Emergency Medicine; PCP Family Medicine
DX: G25.81 Restless legs syndrome (principal); R42 Dizziness and giddiness; N21.0 Calculus in bladder; G93.89 Other specified disorders of brain; I10 Essential (primary) hypertension; I69.354 Hemiplegia and hemiparesis following cerebral infarction affecting left non-dominant side; Z86.711 Personal history of pulmonary embolism; Z79.01 Long term (current) use of anticoagulants; Z74.01 Bed confinement status
CPT/HCPCS: 36415; 80053; 83690; 87077; 99285; 70450; 74177; 81003; 81015; 83735; 85025; 87086; 87186; 99284; J3490

== ENCOUNTER 2025-07-03 00:50 | Emergency (ER) | payer MEDICARE, MEDICAID, SELFPAY ==
[2025-07-03 00:54] VITALS: BP 105/71; PULSE 87; RESP 16; TEMP 36.2; O2SAT 95
[2025-07-03] MEDS: diazePAM 5 MG TAB PO (02:37)
--- NOTE | 2025-07-03 03:22 | W.ED.GENAD ---
Discharge Plan Disposition Patient Disposition: Home Condition: Good Discharge Details Clinical Impression: Restless leg syndrome Primary Care Provider: Martha Brown ED Provider: Nico Yoo Home Meds and New Rx's Prescriptions: No Action acetaminophen 325 mg capsule 650 mg PO TID PRN apixaban 2.5 mg tablet 2.5 mg PO BID cholecalciferol (vitamin D3) 25 mcg (1,000 unit) capsule 25 mcg PO DAILY cyanocobalamin (vitamin B-12) 1,000 mcg capsule 1,000 mcg PO DAILY bisacodyl [Dulcolax (bisacodyl)] 10 mg suppository 10 mg [place] DAILY PRN magnesium oxide 400 mg magnesium capsule 400 mg PO DAILY melatonin 5 mg tablet 5 mg PO HS multivitamin Tablet 1 tab PO DAILY prazosin 1 mg capsule 1 mg PO QHS pregabalin 200 mg capsule 200 mg PO BID ropinirole 1 mg tablet 1 mg PO DAILY tizanidine 2 mg capsule 2 mg PO BID pyridoxine (vitamin B6) 25 mg tablet 25 mg PO DAILY sennosides-docusate sodium [2-in-1 Laxative] 8.6-50 mg tablet 1 tab-cap PO BID metoclopramide HCl 5 mg tablet 5 mg PO QAC Rx Instructions: administer 30 minutes before meals lorazepam [Ativan] 1 mg tablet 1 mg PO TID PRNQty: 10 0RF Rx Instructions: Take one tablet as needed for restless legs as often as every 8 hours hydrocodone-acetaminophen 5-325 mg tablet 1 tab PO Q6H calcium carbonate [Calcium 500] 500 mg calcium (1,250 mg) tablet,chewable 500 mg PO TID baclofen 5 mg granules in packet 5 mg PO QID polyethylene glycol 3350 [ClearLax] 17 gram/dose powder 17 g PO BID Discharge Instructions Instructions: Restless Legs Syndrome (DC) Additional Instructions: At this time your symptoms have improved after benzodiazepine. You do have a benzodiazepine on your list called Ativan. It Would be reasonable to trial this in the future if your symptoms persist even despite your other medication. If you notice any worsening of your symptoms, or any new symptoms such as vomiting, diarrhea, fever, chills, shortness of breath, chest pain, numbness, weakness, or fainting , please return immediately to the emergency department for reevaluation. Please follow up with your primary care provider as soon as possible for reassessment and reevaluation. As always, it was a pleasure participating in your medical care today. Referrals: Martha Brown [Primary Care Provider, Medicine] [facility] General Date/Time Provider Initiated Documentation: 07/03/25 02:06. 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 She was given a [place] at [facility] but this did not improve her symptoms. She request transfer to the ED. She was brought here for further assessment. She denies any chest pain or shortness of breath. She has been taking her medications as prescribed. By the time she arrived in the ED from EMS she states that the symptoms had notably improved but not yet resolved. She denies any other complaints at this time. No other modifying factors. She describes a sensation as a restless and crampy-like sensation that starts in her foot, vibrates and goes up her leg on the left. No significant symptoms on the right. Related Data Home Medications ?Medication ?Instructions ?Recorded ?Confirmed acetaminophen 325 mg capsule 650 mg PO TID PRN 04/15/25 07/03/25 apixaban 2.5 mg tablet 2.5 mg PO BID 04/15/25 07/03/25 bisacodyl 10 mg rectal suppository 10 mg [place] DAILY PRN 04/15/25 06/26/25 (Dulcolax (bisacodyl)) cholecalciferol (vitamin D3) 25 25 mcg PO DAILY 04/15/25 07/03/25 mcg (1,000 unit) capsule cyanocobalamin (vitamin B-12) 1,000 mcg PO DAILY 04/15/25 07/03/25 1,000 mcg capsule magnesium oxide 400 mg PO DAILY 04/15/25 07/03/25 melatonin 5 mg tablet 5 mg PO HS 04/15/25 07/03/25 multivitamin 1 tab PO DAILY 04/15/25 07/03/25 prazosin 1 mg capsule 1 mg PO QHS 04/15/25 07/03/25 pregabalin 200 mg capsule 200 mg PO BID 04/15/25 07/03/25 pyridoxine (vitamin B6) 25 mg 25 mg PO DAILY 04/15/25 07/03/25 tablet ropinirole 1 mg tablet 1 mg PO DAILY 04/15/25 07/03/25 tizanidine 2 mg capsule 2 mg PO BID 04/15/25 07/03/25 lorazepam 1 mg tablet (Ativan) 1 mg PO TID PRN #10 tabs 06/26/25 metoclopramide HCl 5 mg tablet 5 mg PO QAC 06/26/25 07/03/25 sennosides 8.6 mg-docusate sodium 1 tab-cap PO BID 06/26/25 07/03/25 50 mg tablet (2-in-1 Laxative) baclofen 5 mg oral granules in 5 mg PO QID 07/03/25 07/03/25 packet calcium carbonate (Calcium 500) 500 mg PO TID 07/03/25 07/03/25 hydrocodone 5 mg-acetaminophen 325 1 tab PO Q6H 07/03/25 07/03/25 mg tablet polyethylene glycol 3350 17 17 g PO BID 07/03/25 07/03/25 gram/dose oral powder (ClearLax) Previous Rx's ?Medication ?Instructions ?Recorded lorazepam 1 mg tablet (Ativan) 1 mg PO TID PRN #10 tabs 06/26/25 Allergies Allergy/AdvReac Type Severity Reaction Status Date / Time citalopram Allergy Unknown Verified 07/03/25 00:51 duloxetine Allergy Unknown Verified 07/03/25 00:51 gabapentin Allergy Unknown Verified 07/03/25 00:51 levetiracetam Allergy Unknown Verified 07/03/25 00:51 trazodone Allergy Unknown Verified 07/03/25 00:51 zolpidem Allergy Unknown Verified 07/03/25 00:51 General Stated Complaint: Orthopedic CONSUELO: 3 Exam Narrative Exam Narrative: 1.Const: Well-nourished, Well-developed, appearing stated age 2.Eyes: PERRL, no conjunctival injection, and symmetrical lids. 3.ENT: Atraumatic external nose and ears. Moist MM. Neck: Symmetric, trachea midline, No thyromegaly. 4.CVS: +S1/S2, Peripheral pulses 2+ and equal in all extremities. Brisk capillary refill in all extremities. 5.RESP: Unlabored respiratory effort. Clear to auscultation bilaterally. No wheezes rales or rhonchi 6.GI: Soft, Nontender/Nondistended, No hepatosplenomegaly. No guarding or rebound. 7.MSK: Normocephalic/Atraumatic, Extremities w/o deformity or ttp No cyanosis or clubbing, mild weakness of the lower extremities bilaterally, worse on the left than the right, however she is able to move all extremities and all toes. 8.Skin: Warm, Dry. No rashes or lesions. 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 Sensation grossly intact. 10.Psych: (AAO) x3. Appropriate mood and affect, however she does appear quite anxious. Course Vital Signs Vital signs: Vital Signs Temperature 36.2 C L 07/03/25 00:54 Pulse 87 07/03/25 00:54 Respiratory Rate 16 07/03/25 00:54 Blood Pressure 105/71 07/03/25 00:54 Pulse Oximetry 95 07/03/25 00:54 Temperature 36.2 C L 07/03/25 00:54 Temperature Source Temporal Artery Scan 07/03/25 00:54 Pulse 87 07/03/25 00:54 Respiratory Rate 16 07/03/25 00:54 Blood Pressure 105/71 07/03/25 00:54 Blood Pressure Position Supine 07/03/25 00:54 Pulse Oximetry 95 07/03/25 00:54 Pain Level 7 07/03/25 00:54 Medical Decision Making This is a 55-year-old female with past medical history of previous thromboembolic disease and pulmonary embolism currently on apixaban, previous stroke with residual left-sided deficits, who is currently bedbound, with further medical history of hypertension, restless leg syndrome, GERD, 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 She was given a [place] at [facility] but this did not improve her symptoms. She request transfer to the ED. She was brought here for further assessment. She denies any chest pain or shortness of breath. She has been taking her medications as prescribed. By the time she arrived in the ED from EMS she states that the symptoms had notably improved but not yet resolved. She denies any other complaints at this time. No other modifying factors. She describes a sensation as a restless and crampy-like sensation that starts in her foot, vibrates and goes up her leg on the left. No significant symptoms on the right. Physical exam demonstrates a well-appearing female, lower extremities are active chronic baseline strength status. Normal sensation throughout, with some hyperesthesias of the left lower extremity. Pulses intact, brisk capillary refill. No evidence of unilateral leg swelling to suggest DVT. No trauma. No bleeding. Concern for restless leg syndrome. Patient was given a dose of 5 mg of Valium and had complete resolution of her symptoms. She feels much better. I see no evidence of acute life-threatening etiology at this time necessitating further imaging or workup. She does have a home prescription at the facility for Ativan, and we encouraged use of this if her symptoms recur, however other nonbenzodiazepine adjuncts would be advised prior to this. Patient otherwise stable for discharge. She will be transition back to [facility]. Discussed red flags for which to return. I have extensively reviewed the treatment plan and discharge instructions with the patient. I have addressed all patient concerns at this time. The patient was made aware of what symptoms to monitor for that would warrant a return to the emergency department. Discussed the plan with the patient, they demonstrate verbal understanding and agreement with our assessment and plan at this time. The documentation in this chart was dictated using [employer] dictation software. Please excuse any dictation errors. 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, not intractable Falls Lack of coordination Mild cognitive impairment Dysphagia Low back pain Protein calorie malnutrition 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
[2025-07-03 03:25] VITALS: BP 111/57; PULSE 94; RESP 16; O2SAT 97
--- NOTE | 2025-08-11 11:31 | NUR.NOTE ---
Accessed Pt chart to print a face sheet for [employer]. I then faxed it to them
== END 2025-07-03 03:44 | disposition home or self-care (01) ==
PROVIDERS: Emergency Provider Student in an Organized Health Care Education/Training Program; PCP Family Medicine
DX: G25.81 Restless legs syndrome (principal)
CPT/HCPCS: 99283 ×2

== ENCOUNTER 2025-07-29 12:53 | Outpatient (REF) | payer MEDICARE, SELFPAY ==
[2025-07-29 16:03] LABS: Abs Immature Grans 0.01 10^3/uL (0.0-0.06); HCT 38.6 % (36.0-46.0); HGB 12.3 g/dL (11.2-15.7); Immature Grans % 0.2 %; MCH 26.6 pg (27.0-33.0); MCHC 31.9 % (32.0-36.0); MCV 84 fL (80-95); MPV 12.6 fL (8.0-11.0); Platelet Count 180 10^3/uL (130-400); RBC 4.62 10^6/uL (3.93-5.22); RDW 14.5 % (11.7-14.6); RDW-SD 43.8 fL; WBC 5.73 10^3/uL (4.4-10.8)
[2025-07-29 16:41] LABS: ALT 56 U/L (14-59); AST 35 U/L (15-37); Albumin 3.5 g/dL (3.4-5.0); Alkaline Phosphatase 107 U/L (46-116); Anion Gap 8.7 mmol/L (3-11); BUN 13 mg/dL (7-18); Bilirubin, Total 0.4 mg/dL (0.2-1.0); CO2 27.3 mmol/L (21.0-32.0); Calcium 9.0 mg/dL (8.5-10.1); Chloride 104 mmol/L (98-107); Glucose 122 mg/dL (74-106); Potassium 4.4 mmol/L (3.5-5.1); Sodium 140 mmol/L (136-145); TSH 0.61 uIU/mL (0.36-3.74); Total Protein 6.8 g/dL (6.4-8.2); Vitamin B12 1499 pg/mL (193-986)
== END 2025-07-29 12:54 | disposition home or self-care (01) ==
LOC: LBN 12:53
PROVIDERS: PCP Family Medicine; Visit Provider Nurse Practitioner Adult Health
DX: N18.31 Chronic kidney disease, stage 3a (principal)
CPT/HCPCS: 80053; 82607; 84443; 85025

== ENCOUNTER 2025-08-02 21:21 | Outpatient (REF) | payer MEDICARE, SELFPAY ==
[2025-08-02 20:38] LABS: Glucose Negative (Negative)
[2025-08-02 20:50] LABS: WBC >50 HPF (0-5)
== END 2025-08-02 21:22 | disposition home or self-care (01) ==
LOC: LBN 21:21
PROVIDERS: PCP Family Medicine; Visit Provider Nurse Practitioner Adult Health
DX: M54.50 Low back pain, unspecified (principal)
CPT/HCPCS: 87077; 81003; 81015; 87086; 87186

== ENCOUNTER 2025-08-23 15:53 | Outpatient (REF) | payer MEDICARE, SELFPAY ==
[2025-08-23 16:48] LABS: ALT 44 U/L (14-59); AST 32 U/L (15-37); Albumin 3.9 g/dL (3.4-5.0); Alkaline Phosphatase 100 U/L (46-116); Anion Gap 11.8 mmol/L (3-11); BUN 12 mg/dL (7-18); Bilirubin, Total 0.5 mg/dL (0.2-1.0); CO2 25.2 mmol/L (21.0-32.0); Calcium 8.9 mg/dL (8.5-10.1); Chloride 102 mmol/L (98-107); Estimated GFR 65.71 (mL/min/1.73m2); Glucose 99 mg/dL (74-106); Potassium 4.6 mmol/L (3.5-5.1); Sodium 139 mmol/L (136-145); Total Protein 7.4 g/dL (6.4-8.2)
[2025-08-23 19:58] LABS: Abs Immature Grans 0.02 10^3/uL (0.0-0.06); HCT 39.1 % (36.0-46.0); HGB 12.2 g/dL (11.2-15.7); Immature Grans % 0.3 %; MCH 26.3 pg (27.0-33.0); MCHC 31.2 % (32.0-36.0); MCV 84 fL (80-95); MPV 12.3 fL (8.0-11.0); Platelet Count 206 10^3/uL (130-400); RBC 4.63 10^6/uL (3.93-5.22); RDW 15.2 % (11.7-14.6); RDW-SD 47.0 fL; WBC 6.41 10^3/uL (4.4-10.8)
[2025-08-23 20:13] LABS: NT-proBNP 297 pg/mL (<300)
== END 2025-08-23 15:54 | disposition home or self-care (01) ==
LOC: LBN 15:53
PROVIDERS: PCP Family Medicine; Visit Provider Nurse Practitioner Adult Health
DX: N18.31 Chronic kidney disease, stage 3a (principal)
CPT/HCPCS: 80053; 83880; 85025

== ENCOUNTER 2025-09-06 15:23 | Outpatient (REF) | payer MEDICARE, SELFPAY ==
[2025-09-06 16:25] LABS: D-Dimer 364 ng/mlFEU (<500)
[2025-09-06 17:11] LABS: Anion Gap 9.5 mmol/L (3-11); BUN 15 mg/dL (7-18); CO2 30.5 mmol/L (21.0-32.0); Calcium 9.3 mg/dL (8.5-10.1); Chloride 103 mmol/L (98-107); Estimated GFR 58.61 (mL/min/1.73m2); Glucose 108 mg/dL (74-106); Potassium 4.1 mmol/L (3.5-5.1); Sodium 143 mmol/L (136-145)
== END 2025-09-06 15:24 | disposition home or self-care (01) ==
LOC: LBN 15:23
PROVIDERS: PCP Family Medicine; Visit Provider Nurse Practitioner Adult Health
DX: N18.31 Chronic kidney disease, stage 3a (principal)
CPT/HCPCS: 80048; 85379

== ENCOUNTER 2025-09-27 14:20 | Outpatient (REF) | payer MEDICARE, SELFPAY ==
[2025-09-27 17:52] LABS: Abs Immature Grans 0.01 10^3/uL (0.0-0.06); HCT 39.4 % (36.0-46.0); HGB 12.5 g/dL (11.2-15.7); Immature Grans % 0.2 %; MCH 26.7 pg (27.0-33.0); MCHC 31.7 % (32.0-36.0); MCV 84 fL (80-95); MPV 13.0 fL (8.0-11.0); Platelet Count 173 10^3/uL (130-400); RBC 4.68 10^6/uL (3.93-5.22); RDW 15.3 % (11.7-14.6); RDW-SD 47.0 fL; WBC 5.67 10^3/uL (4.4-10.8)
[2025-09-28 01:35] LABS: Vitamin D 25 Total 39 ng/mL (30-100)
== END 2025-09-27 14:21 | disposition home or self-care (01) ==
LOC: LBN 14:20
PROVIDERS: PCP Family Medicine; Visit Provider Nurse Practitioner Adult Health
DX: G40.009 Localization-related (focal) (partial) idiopathic epilepsy and epileptic syndromes with seizures of localized onset, not intractable, without status epilepticus (principal)
CPT/HCPCS: 80186; 82306; 82525; 84252; 84630; 84207; 84255; 84425; 84446; 85025

== ENCOUNTER 2025-09-30 18:41 | Outpatient (REF) | payer MEDICARE, MEDICAID, SELFPAY ==
[2025-09-30 18:41] LABS: Glucose Negative (Negative)
[2025-09-30 18:52] LABS: RBC >50 HPF (0-2); WBC >50 HPF (0-5)
== END 2025-09-30 18:42 | disposition home or self-care (01) ==
LOC: LBN 18:41
PROVIDERS: PCP Family Medicine; Visit Provider Family Medicine
DX: R30.0 Dysuria (principal)
CPT/HCPCS: 81003; 81015; 87086

== ENCOUNTER 2025-10-05 00:43 | Outpatient (CLI) | payer MEDICARE, MEDICAID, SELFPAY ==
[2025-10-07 13:35] LABS: Copper, Serum 93 mcg/dL (77-206)
[2025-10-07 13:36] LABS: Zinc, S 70 mcg/dL (60-106)
[2025-10-08 23:07] LABS: Thiamine (Vitamin B1), WB 131 nmol/L (70-180)
[2025-10-09 04:47] LABS: Riboflavin (Vitamin B2), P 10 mcg/L (1-19)
[2025-10-11 09:24] LABS: Pyridoxal 5-Phosphate (PLP), P 85 mcg/L (5-50)
== END 2025-10-05 00:44 | disposition home or self-care (01) ==
LOC: LBO 00:43
PROVIDERS: Nurse Practitioner Adult Health; PCP Family Medicine; Visit Provider Family Medicine
DX: G40.009 Localization-related (focal) (partial) idiopathic epilepsy and epileptic syndromes with seizures of localized onset, not intractable, without status epilepticus (principal)
CPT/HCPCS: 36415; 82525; 84252; 84630; 84207; 84255; 84425; 84446

== ENCOUNTER 2025-10-06 09:26 | Outpatient (REF) | payer MEDICARE, MEDICAID, SELFPAY ==
[2025-10-09 08:44] LABS: Vitamin E, Serum 11.0 mg/L (5.5 - 17.0)
== END 2025-10-06 09:27 | disposition home or self-care (01) ==
LOC: LBN 09:26
PROVIDERS: PCP Family Medicine; Visit Provider Family Medicine
DX: G40.009 Localization-related (focal) (partial) idiopathic epilepsy and epileptic syndromes with seizures of localized onset, not intractable, without status epilepticus (principal)
CPT/HCPCS: 84446

== ENCOUNTER → 2025-10-13 12:46 | Outpatient (BNVA) | payer MEDICARE, MEDICAID, SELFPAY | PROVIDERS: PCP Family Medicine; Referring Provider Family Medicine; Visit Provider Podiatrist | DX: L60.3 Nail dystrophy (principal); B35.1 Tinea unguium; M79.671 Pain in right foot; M79.672 Pain in left foot; G61.0 Guillain-Barre syndrome; G62.9 Polyneuropathy, unspecified; M62.81 Muscle weakness (generalized); R09.89 Other specified symptoms and signs involving the circulatory and respiratory systems; R60.0 Localized edema; L65.9 Nonscarring hair loss, unspecified; R23.8 Other skin changes; R23.4 Changes in skin texture; L60.2 Onychogryphosis; L60.8 Other nail disorders | CPT/HCPCS: 11719; 11720; 11750; 11755 ==

== ENCOUNTER 2025-10-19 19:07 | Outpatient (REF) | payer MEDICARE, MEDICAID, SELFPAY ==
[2025-10-19 16:34] LABS: Abs Immature Grans 0.03 10^3/uL (0.0-0.06); HCT 34.2 % (36.0-46.0); HGB 10.8 g/dL (11.2-15.7); Immature Grans % 0.6 %; MCH 27.1 pg (27.0-33.0); MCHC 31.6 % (32.0-36.0); MCV 86 fL (80-95); MPV 11.8 fL (8.0-11.0); Platelet Count 158 10^3/uL (130-400); RBC 3.98 10^6/uL (3.93-5.22); RDW 15.5 % (11.7-14.6); RDW-SD 48.7 fL; WBC 5.06 10^3/uL (4.4-10.8)
[2025-10-19 16:47] LABS: Magnesium 1.8 mg/dL (1.6-2.6)
[2025-10-19 16:49] LABS: Anion Gap 6.3 mmol/L (3-11); BUN 15 mg/dL (9-23); CO2 24.7 mmol/L (20.0-31.0); Calcium 9.4 mg/dL (8.3-10.6); Chloride 107 mmol/L (98-107); Glucose 137 mg/dL (74-106); Potassium 4.5 mmol/L (3.5-5.1); Sodium 138 mmol/L (136-145)
== END 2025-10-19 19:08 | disposition home or self-care (01) ==
LOC: LBN 19:07
PROVIDERS: PCP Family Medicine; Visit Provider Nurse Practitioner Adult Health
DX: E83.42 Hypomagnesemia (principal)
CPT/HCPCS: 80048; 83735; 85025

== ENCOUNTER → 2025-10-27 13:39 | Outpatient (BNVA) | payer MEDICARE, MEDICAID, SELFPAY | PROVIDERS: PCP Family Medicine; Referring Provider Family Medicine; Visit Provider Podiatrist | DX: L60.3 Nail dystrophy (principal); B35.1 Tinea unguium; M79.671 Pain in right foot; M79.672 Pain in left foot; M62.81 Muscle weakness (generalized); G61.0 Guillain-Barre syndrome; G62.9 Polyneuropathy, unspecified | CPT/HCPCS: 99213 ==